=== PATIENT | male | born 1960 | race Caucasian/White ===

== ENCOUNTER → 2017-08-01 17:14 | Outpatient (CLI) | payer MEDICARE, SELFPAY ==
[2017-08-01 17:52] LABS: Amphetamine Urine VISTA NEGATIVE (<1000 ng/mL); Barbiturate Urine VISTA NEGATIVE (< 200 ng/mL); Benzodiazepine Urine VISTA NEGATIVE (< 200 ng/mL); Cocaine Urine VISTA NEGATIVE (< 300 ng/mL); Ecstacy Urine VISTA NEGATIVE (< 500 ng/mL); Methadone Urine VISTA NEGATIVE (< 300 ng/mL); PCP Urine VISTA NEGATIVE (< 25 ng/mL); THC Urine VISTA NEGATIVE (< 50 ng/mL); Vista UDS pH Range 5
== END ==
PROVIDERS: Family Provider Family Medicine; PCP Family Medicine; Visit Provider Anesthesiology Pain Medicine
DX: F11.20 Opioid dependence, uncomplicated (principal)
CPT/HCPCS: 80307

== ENCOUNTER → 2017-11-06 17:05 | Outpatient (CLI) | payer MEDICARE, MEDICAID, SELFPAY ==
--- NOTE | 2017-11-06 17:12 | RAD_ITS ---
STUDY: X-RAY - PELVIS AND BILATERAL HIPS REASON FOR EXAM: Male, 57 years old. Low back pain with bilateral hip pain TECHNIQUE: Radiological exam, hip, bilateral, with pelvis when performed; 3-4 views COMPARISON: None. FINDINGS: There is a non-specific bowel gas pattern. Normal visualized soft tissue structures. Postsurgical fusion of L4-5. There is narrowing with cortical sclerosis and osteophyte formation of the sacroiliac joint consistent with degenerative osteoarthritic changes. Normal bilateral superior and inferior pubic rami. Normal pubic symphysis. Normal bilateral ischial tuberosities. There are osteoarthritic changes of the right femoral head with marginal osteophyte formation. Normal right acetabulum. There is mild articular joint space narrowing of the right hip. There are osteoarthritic changes of the left femoral head with marginal osteophyte formation. Normal left acetabulum. There is mild articular joint space narrowing of the left hip. RAD/Hips B/L min 2 views w/ Pelvis IMPRESSION: Mild bilateral hip degenerative changes. Lower lumbar spine degenerative changes with postsurgical change Electronically Signed: Rolo Day DO at 13:32 EDT Tel , Service support ,
== END ==
PROVIDERS: Family Provider Family Medicine; PCP Family Medicine; Visit Provider Anesthesiology Pain Medicine
DX: M25.552 Pain in left hip (principal); M25.551 Pain in right hip; M54.9 Dorsalgia, unspecified
CPT/HCPCS: 73521

== ENCOUNTER → 2018-12-31 | Outpatient (CLI) | payer MEDICARE, SELFPAY ==
--- NOTE | 2018-12-31 13:50 | RAD_ITS ---
STUDY: X-RAY - UNILATERAL RIBS ( LEFT ) WITH CHEST REASON FOR EXAM: Male, 58 years old. Left-sided rib pain. TECHNIQUE - RIBS: 5 view(s) of the ribs. TECHNIQUE - CHEST: Single AP portable view of the chest. COMPARISON: None. FINDINGS - RIBS: Normal visualized ribs without a demonstrated fracture. FINDINGS - CHEST: The lungs are clear and slightly underexpanded. There is no demonstrated pleural abnormality. Normal size heart. Normal mediastinum and mercedes. Normal visualized pulmonary arteries. Normal visualized aortic arch and descending thoracic aorta. Postoperative changes through the lumbar spine noted with posterior fusion. There is degenerative osteoarthritis of the bilateral shoulders. There is no demonstrated abnormality of the visualized soft tissue structures of the upper abdomen. RAD/Ribs Uni Min 3V w/PA Chest IMPRESSION: RIBS: Unremarkable x-ray examination of the ribs with no distinct fracture seen. CHEST: Decreased inspiratory effort with vascular crowding, otherwise no acute process identified. Electronically Signed: Indu Delcid MD at 2:36 EST , Service support ,
== END | disposition home or self-care (01) ==
LOC: RAD 13:49
PROVIDERS: Family Provider Family Medicine; PCP Family Medicine; Referring Provider Anesthesiology Pain Medicine; Visit Provider Anesthesiology Pain Medicine
DX: R07.81 Pleurodynia (principal)
CPT/HCPCS: 71101

== ENCOUNTER → 2019-08-13 | Outpatient (CLI) | payer BC, MEDICARE, SELFPAY ==
[2016-11-03 22:13] VITALS: BMI 51.3
--- NOTE | 2019-08-13 17:00 | RAD_ITS ---
STUDY: X-RAY - PELVIS AND RIGHT HIP REASON FOR EXAM: Male, 58 years old. HIP PAIN. TECHNIQUE: 3 views of the pelvis and hip. COMPARISON: Prior study of 11/06/2017 FINDINGS: There is a non-specific bowel gas pattern. Normal visualized soft tissue structures. There are degenerative changes of the visualized lower lumbar spine. There are posterior spinal fusion changes with rods and interpeduncular screws at the L4-5 level. Normal bilateral iliac wings, sacroiliac joints and visualized sacrum. Normal bilateral superior and inferior pubic rami. Normal pubic symphysis. Normal bilateral ischial tuberosities. There are minimal degenerative changes of the left and right femoral heads. RAD/HIP, UNI W/ Pelvis 2-3 Views IMPRESSION: Minimal degenerative changes of the left and right femoral heads. Bilateral hip findings are similar to the previous study. The bony pelvis appears intact with no evidence of fracture or lytic or blastic osseous process. Degenerative changes of the visualized lower lumbar spine. Posterior fusion changes with rods and interpedicular screws at the L4-5 level. Electronically Signed: Shlomo Leblanc MD at 21:43 EDT , Service support ,
[2019-08-13 17:29] LABS: Amphetamine Urine VISTA NEGATIVE (<1000 ng/mL); Barbiturate Urine VISTA NEGATIVE (< 200 ng/mL); Benzodiazepine Urine VISTA NEGATIVE (< 200 ng/mL); Cocaine Urine VISTA NEGATIVE (< 300 ng/mL); Ecstacy Urine VISTA NEGATIVE (< 500 ng/mL); Methadone Urine VISTA NEGATIVE (< 300 ng/mL); PCP Urine VISTA NEGATIVE (< 25 ng/mL); THC Urine VISTA NEGATIVE (< 50 ng/mL); Vista UDS pH Range 6
== END | disposition home or self-care (01) ==
LOC: RAD 16:56
PROVIDERS: PCP Family Medicine; Referring Provider Anesthesiology Pain Medicine; Visit Provider Anesthesiology Pain Medicine
DX: M25.551 Pain in right hip (principal); F11.20 Opioid dependence, uncomplicated
CPT/HCPCS: 73502; 80307

== ENCOUNTER → 2020-04-28 16:28 | Outpatient (CLI) | payer MEDICARE, SELFPAY ==
[2016-11-03 22:13] VITALS: BMI 51.3
[2020-04-28 17:35] LABS: Amphetamine Urine VISTA NEGATIVE (<1000 ng/mL); Barbiturate Urine VISTA NEGATIVE (< 200 ng/mL); Benzodiazepine Urine VISTA NEGATIVE (< 200 ng/mL); Cocaine Urine VISTA NEGATIVE (< 300 ng/mL); Ecstacy Urine VISTA NEGATIVE (< 500 ng/mL); Methadone Urine VISTA NEGATIVE (< 300 ng/mL); PCP Urine VISTA NEGATIVE (< 25 ng/mL); THC Urine VISTA NEGATIVE (< 50 ng/mL); Vista UDS pH Range 5
== END ==
PROVIDERS: PCP Family Medicine; Referring Provider Anesthesiology Pain Medicine; Visit Provider Anesthesiology Pain Medicine
DX: F11.20 Opioid dependence, uncomplicated (principal)
CPT/HCPCS: 80307

== ENCOUNTER 2020-05-23 12:54 | Emergency (ER) | payer MEDICARE, SELFPAY ==
[2020-05-23 12:55] VITALS: BP 139/85; PULSE 97; RESP 16; TEMP 36.4; O2SAT 96; BMI 53.0
--- NOTE | 2020-05-23 13:12 | CT_ITS ---
STUDY: CT ABDOMEN AND PELVIS WITHOUT CONTRAST REASON FOR EXAM: Male, 59 years old. Right flank pain RADIATION DOSAGE (If Supplied By Facility): CTDIvol = ( 33.28 ) mGy, DLP = ( 1613.02 ) mGycm TECHNIQUE: Transaxial images were obtained from the dome of the diaphragm to the symphysis pubis without oral contrast, and without intravenous contrast. Sagittal and coronal images were reconstructed. Individualized dose optimization techniques were used for this CT. COMPARISON: None. FINDINGS: Evaluation of the abdominal viscera is limited in the absence of intravenous contrast. The visualized lung bases are clear. The visualized portions of the heart and pericardium are within normal limits. There are no calcified gallstones present. The liver is enlarged with diffuse fatty infiltration noted. The spleen is normal in size. The pancreas demonstrates an unremarkable unenhanced appearance. The adrenal glands are within normal limits. There are no renal or ureteral stones. There is no hydronephrosis. There is a simple cyst in the left kidney. Normal visualized stomach. There is no bowel obstruction or inflammation. The appendix is visualized and appears normal. The aorta is normal in caliber. There are atherosclerotic calcifications noted in the aorta. There is no abdominal or pelvic free air, free fluid, fluid collection or lymphadenopathy. There are no destructive osseous lesions. The patient is status post posterior fusion of L4/L5. CT/Abdomen/Pelvis without Cont IMPRESSION: No urinary calculi. No hydronephrosis. No bowel obstruction or inflammation. Normal appendix. Enlarged, fatty liver. Electronically Signed: Israel Burk MD at 14:08 EDT Tel , Service support ,
--- NOTE | 2020-05-23 13:12 | ED.VIS.GEN ---
History of Present Illness Chief Complaint: Back Detail of Chief Complaint: Right flank pain Onset: Days Context: Gradual Onset Timing: Waxes and wanes Current Severity: Mild Maximum Severity: Moderate Narrative: Patient presents with right flank pain for the past 2 days. He states he has a history of chronic back pain but was concerned this may represent a kidney stone or appendicitis as it was wrapping around his right side. He is unsure if he has had a fever. He states has had some cold symptoms for the past couple of weeks. - Past Medical History (1) Benign essential hypertension Status: Chronic (2) COPD (chronic obstructive pulmonary disease) Status: Chronic Comment: tobacco abuse 1 ppd (3) HLD (hyperlipidemia) Status: Chronic (4) Morbid obesity Status: Chronic Comment: bmi 51 (5) MANISH (obstructive sleep apnea) Status: Chronic (6) Type II diabetes mellitus Status: Chronic Past Medical History - Allergies and Home Meds Allergies/Adverse Reactions: Allergies Penicillins Allergy (Verified 11/03/16 22:15) Hives Primary Care Physician: Juan Miguel Russell MD [Primary Care Provider] - Surgical History: no surgical history Lives: With Family Smoking Status: Current every day smoker - Family History Maternal Family History: Reports: No pertinent history Review of Systems General: Denies: Chills, Sweats Eyes: Denies: Visual changes - bilaterally ENT: Denies: Bilateral ear pain Cardiovascular: Denies: Chest pain Respiratory: Denies: Dyspnea, Cough Gastrointestinal: Reports: Abdominal pain - Right flank pain. Denies: Nausea, Vomiting, Diarrhea Genitourinary: Denies: Dysuria Musculoskeletal: Denies: Swelling, Extremity Pain Skin: Denies: Rash Hematologic: Denies: Easy bruising, Easy bleeding Allergy: Denies: Uticaria Physical Exam Vital Signs/Narrative: Vital Signs Temp Pulse Resp BP Pulse Ox 05/23/20 12:55 97.6 F L 97 16 139/85 H 96 Inital Vital Signs reviewed: Yes General: Well nourished, Well developed Head: Normocephalic Neck: Supple Cardiovascular: Regular rate, Regular rhythm Respiratory: No distress, CTA bilaterally Abdomen: Soft, Tender. Negative for: Guarding, Rebound tenderness Back: CVA tenderness - Mild right CVA tenderness. Skin: Normal color Neurological: Alert, Oriented x3 Psychological: Normal affect Diagnostic/Tx/Re-eval Impressions Abdomen/Pelvis CT 05/23/20 13:12 IMPRESSION: No urinary calculi. No hydronephrosis. No bowel obstruction or inflammation. Normal appendix. Enlarged, fatty liver. Electronically Signed: Israel Burk MD at 14:08 EDT Tel , Service support , 05/23/20 13:12 Abdomen/Pelvis without Cont [CT] Stat - Medical Decision Making CT scan of the flank is obtained. Appendix is visualized and appears normal. No evidence of kidney stone. Patient is reassured with these findings and will continue his pain medication from his pain management physician at home. ED Disposition - Plan for ED Patient: Disposition: Home or Assisted Living Diagnosis: Right flank pain Instructions: ED Flank Pain, Uncertain Cause Referrals: Juan Miguel Russell MD [Primary Care Provider] - 1 Week if not improving
[2020-05-23 14:50] VITALS: BP 136/74; PULSE 62; RESP 15; O2SAT 98
== END 2020-05-23 14:51 | disposition home or self-care (01) ==
PROVIDERS: Emergency Provider Emergency Medicine; PCP Family Medicine
DX: R10.9 Unspecified abdominal pain (principal); I10 Essential (primary) hypertension; J44.9 Chronic obstructive pulmonary disease, unspecified; E78.5 Hyperlipidemia, unspecified; E66.01 Morbid (severe) obesity due to excess calories; E11.9 Type 2 diabetes mellitus without complications; F17.200 Nicotine dependence, unspecified, uncomplicated; Z79.84 Long term (current) use of oral hypoglycemic drugs; Z79.899 Other long term (current) drug therapy
CPT/HCPCS: 74176; 99282

== ENCOUNTER 2020-10-30 20:37 | Emergency (ER) | payer MEDICARE, SELFPAY ==
[2020-10-30 20:38] VITALS: BP 167/61; PULSE 87; RESP 18; TEMP 35.7; O2SAT 95; BMI 53.0
--- NOTE | 2020-10-30 21:05 | EDS_ITS ---
HPI History of Present Illness Chief Complaint: Lower Extremity Injury Informant: patient Narrative Narrative: 60-year-old male presents with bilateral lower extremity pain and swelling. He states that he is a diabetic with a history of hypertension hypercholesterolemia. His last hemoglobin A1c was 9. He is a smoker. He notes that he has developed pain with ambulation of the legs and the feet. He notes the feet are more swollen than normal. He notes some red-colored skin of the legs and the feet. He was worried about infection. [facility] Medical History (Updated 10/30/20 @ 21:[address] Sohail Yates DO) Benign essential hypertension COPD (chronic obstructive pulmonary disease) HLD (hyperlipidemia) Morbid obesity MANISH (obstructive sleep apnea) Type II diabetes mellitus Home Medications pregabalin [Lyrica] 100 mg PO TID 12/11/12 [History Last Taken Unknown] diltiazem HCl 180 mg PO DAILY 11/20/13 [History Last Taken Unknown] hydrochlorothiazide 25 mg PO DAILY 11/20/13 [History Last Taken Unknown] metformin 500 mg PO 4X/DAY 11/20/13 [History Last Taken Unknown] acetaminophen 1,000 mg PO TID 7 Days tablet 11/23/13 [Rx Last Taken Unknown] atorvastatin 10 mg PO QHS 11/03/16 [History Last Taken Unknown] dulaglutide [Trulicity] 1.5 mg SQ QWEEK 11/03/16 [History Last Taken Unknown] glimepiride 4 mg PO DAILY 11/03/16 [History Last Taken Unknown] budesonide-formoterol 2 puff INHALATION BID 10/30/20 [History Last Taken Unknown] celecoxib [Celebrex] 200 mg PO BID 10/30/20 [History Last Taken Unknown] insulin aspart U-100 [Novolog Flexpen U-100 Insulin] 2 unit SUBCUT TID 10/30/20 [History Last Taken Unknown] oxycodone myristate [Xtampza ER] 18 mg PO BID 10/30/20 [History Last Taken Unknown] pantoprazole 40 mg PO DAILY 10/30/20 [History Last Taken Unknown] Allergy/AdvReac Type Severity Reaction Status Date / Time Penicillins Allergy Hives Verified 11/03/16 22:15 Social History (Updated 10/30/20 @ 21:[address] Sohail Yates DO) Smoking Status: Current every day smoker substance use type: does not use ROS ROS ED Constitutional Constitutional ED: Denies chills or weight loss Eyes Eyes: Denies change in vision or diplopia ENT ENT ED: Denies ear pain, rhinorrhea or sore throat Cardiovascular Cardiovascular: Denies chest pain, orthopnea, palpitations or racing heartbeat Respiratory/Chest Respiratory/Chest: Denies cough, dyspnea or orthopnea Gastrointestinal Gastrointestinal: Denies abdominal pain, diarrhea, nausea or vomiting Genitourinary Genitourinary ED: Denies dysuria, hematuria or urinary frequency Musculoskeletal Musculoskeletal: Reports other Details: Bilateral lower extremity pain and swelling ; Denies arthralgias or myalgias Integumentary Denies abscess or rash Neurologic Neurologic: Denies headache(s) or weakness Psychiatric Psychiatric: Denies anxiety, depression, suicidal ideation or suicidal thoughts Endocrine Endocrinology: Denies polydipsia, polyphagia or polyuria Allergic/Immunologic Allergic/Immunologic ED: Denies mouth swelling, tongue swelling or urticaria EXAM Physical Exam Const Vital Signs: 10/30/20 20:38 Temperature 96.3 F L Temperature Source Temporal Pulse Rate 87 Respiratory Rate 18 Blood Pressure 167/61 H Blood Pressure Mean 96 Pulse Ox 95 Oxygen Delivery Method Room Air Positive well nourished and well developed General Appearance ED: well developed HEENT Reports normocephalic, head/scalp atraumatic and moist mucous membranes Eyes PERRL and EOMs intact bilaterally Neck no lymphadenopathy, supple and no JVD Resp normal respiratory effort and clear to auscultation bilaterally Cardio regular rate, regular rhythm and no murmurs GI normal to inspection, nondistended, normoactive bowel sounds and non-tender Palpation: soft Back/Spine no CVA tenderness and normal ROM Extremity Extremity Narrative: Bilateral feet swelling and lower leg swelling. There are extensive varicose veins. He has some evidence of venous stasis but also some rubor that resolves with elevation General Extremety ED: Yes edema General Extremity: edema Neuro oriented x3 and CN's II-XII intact bilaterally Sensorium / Orientation: alert Motor Exam: strength 5/5 throughout Psych mental status grossly normal Mood & Affect: Negative for depressed or tearful Skin no rashes or lesions noted and no wounds MDM MDM MDM Narrative Medical decision making narrative: Patient states he is currently on Lyrica for diabetic neuropathy. I am concerned that he has peripheral vascular disease and is experiencing some claudication. I think it is reasonable to refer him to vascular surgery for their evaluation. Discharge Plan Triage Chief Complaint: Lower Extremity Injury ED Provider: Sohail Yates Dx/Rx/DC Orders Clinical Impression: Peripheral vascular disease Instructions: Diabetes PAD Prescriptions: No Action pregabalin [Lyrica] 100 MG capsule 100 mg PO TID RF: 0 metformin 500 MG tablet 500 mg PO 4X/DAY RF: 0 diltiazem HCl 180 MG capsule,extended release 24 hr 180 mg PO DAILY RF: 0 hydrochlorothiazide 25 MG tablet 25 mg PO DAILY RF: 0 acetaminophen 500 MG tablet 1,000 mg PO TID 7 Days RF: 0 atorvastatin 10 MG tablet 10 mg PO QHS RF: 0 glimepiride 2 MG tablet 4 mg PO DAILY RF: 0 Trulicity 0.75 MG/0.5 ML pen injector 1.5 mg SQ QWEEK RF: 0 celecoxib [Celebrex] 200 mg Capsule 200 mg PO BID RF: 0 insulin aspart U-100 [Novolog Flexpen U-100 Insulin] 100 unit/mL (3 mL) Insulin Pen 2 unit SUBCUT TID RF: 0 budesonide-formoterol 80-4.5 mcg/actuation Hfa Aerosol Inhaler 2 puff INHALATION BID RF: 0 Xtampza ER 18 mg Cap,Sprinkl,Er12hr(Dont Crush) 18 mg PO BID RF: 0 pantoprazole 40 mg Tablet,Delayed Release (Dr/Ec) 40 mg PO DAILY RF: 0 Primary Care Provider: Juan Miguel Russell Referrals: Mg Singh MD [STAFF PHYSICIAN] - As soon as possible Juan Miguel Russell MD [Primary Care Provider] - Disposition Disposition: Home, Self Care
== END 2020-10-30 21:18 | disposition home or self-care (01) ==
LOC: ED 21:18
PROVIDERS: Emergency Provider Emergency Medicine; PCP Family Medicine
DX: E11.51 Type 2 diabetes mellitus with diabetic peripheral angiopathy without gangrene (principal); I10 Essential (primary) hypertension; J44.9 Chronic obstructive pulmonary disease, unspecified; E78.5 Hyperlipidemia, unspecified; E66.01 Morbid (severe) obesity due to excess calories; E11.40 Type 2 diabetes mellitus with diabetic neuropathy, unspecified; F17.200 Nicotine dependence, unspecified, uncomplicated; Z79.4 Long term (current) use of insulin; Z79.899 Other long term (current) drug therapy
CPT/HCPCS: 99283

== ENCOUNTER → 2021-06-23 | Outpatient (CLI) | payer MEDICARE, SELFPAY ==
[2021-06-23 18:26] LABS: Amphetamine Urine VISTA NEGATIVE (<1000 ng/mL); Barbiturate Urine VISTA NEGATIVE (< 200 ng/mL); Benzodiazepine Urine VISTA NEGATIVE (< 200 ng/mL); Cocaine Urine VISTA NEGATIVE (< 300 ng/mL); Ecstacy Urine VISTA NEGATIVE (< 500 ng/mL); Methadone Urine VISTA NEGATIVE (< 300 ng/mL); PCP Urine VISTA NEGATIVE (< 25 ng/mL); THC Urine VISTA NEGATIVE (< 50 ng/mL); Vista UDS pH Range 4
== END | disposition home or self-care (01) ==
LOC: LAB 17:11
PROVIDERS: PCP Family Medicine; Referring Provider Anesthesiology Pain Medicine; Visit Provider Anesthesiology Pain Medicine
DX: F11.20 Opioid dependence, uncomplicated (principal)
CPT/HCPCS: 80307

== ENCOUNTER 2021-10-18 12:53 | Emergency (ER) | payer MEDICARE, SELFPAY ==
[2021-10-18 12:54] VITALS: BP 161/88; PULSE 107; RESP 26; TEMP 36.6; O2SAT 94; BMI 52.4
[2021-10-18 13:18] VITALS: BP 164/66; PULSE 108; RESP 18; O2SAT 94
--- NOTE | 2021-10-18 13:41 | RAD_ITS ---
STUDY: X-RAY CHEST REASON FOR EXAM: Male, 61 years old. cough TECHNIQUE: Single AP portable view of the chest. The images are under penetrated. COMPARISON: 12/31/2018 FINDINGS: The lungs are clear and expanded. There is no demonstrated pleural abnormality. Normal size heart. Normal mediastinum and mercedes. Normal visualized pulmonary arteries. Normal visualized aortic arch and descending thoracic aorta. Normal visualized thoracic spine. Normal visualized ribs, clavicles, and shoulders. There is no demonstrated abnormality of the visualized soft tissue structures of the upper abdomen. RAD/Chest 1 View (Portable) IMPRESSION: Limited by technique with no evidence of distinct focal airspace disease. Electronically Signed: Maximilian Davenport DO at 14:11 EDT ,
--- NOTE | 2021-10-18 13:42 | EX.ED.VIS.UR ---
HPI HPI - URI History of Present Illness Chief Complaint: Shortness of Breath Narrative Narrative: 61-year-old male presenting for evaluation of a cough that has had for about a month. He states this started with a head cold and then slowly progressed into his chest. He states he has a history of bronchitis in the past and he states that his asthmatic bronchitis. He has not seen anybody for this since his symptoms started. He went to urgent care today and was referred to the ER. Patient denies chest pain, fever, chills, body aches, nausea, vomiting, diarrhea. He states he feels okay. He thinks he has a basic cold. He does not believe he has COVID. He has test at home and is tested negative. ROS ROS ED Constitutional Constitutional ED: Denies chills or fever(s) Eyes Eyes: Denies change in vision ENT ENT ED: Denies rhinorrhea or sore throat Cardiovascular Cardiovascular: Denies chest pain, orthopnea or palpitations Respiratory/Chest Respiratory/Chest: Reports cough; Denies orthopnea Gastrointestinal Gastrointestinal: Denies abdominal pain, nausea or vomiting Genitourinary Genitourinary ED: Denies dysuria or hematuria Musculoskeletal Musculoskeletal: Denies arthralgias, myalgias or neck pain Integumentary Denies abscess Neurologic Neurologic: Denies headache(s) Psychiatric Psychiatric: Denies anxiety or depression [facility] Medical History Benign essential hypertension COPD (chronic obstructive pulmonary disease) HLD (hyperlipidemia) Leaky heart valve Morbid obesity MANISH (obstructive sleep apnea) Type II diabetes mellitus Home Medications pregabalin 100 mg capsule (Lyrica) 100 mg PO TID 12/11/12 [History Last Taken Unknown] diltiazem HCl 180 mg capsule,24 hr,extended release 180 mg PO DAILY 11/20/13 [History Last Taken Unknown] hydrochlorothiazide 25 mg tablet 25 mg PO DAILY 11/20/13 [History Last Taken Unknown] metformin 500 mg tablet 500 mg PO 4X/DAY 11/20/13 [History Last Taken Unknown] atorvastatin 10 mg tablet 10 mg PO QHS 11/03/16 [History Last Taken Unknown] dulaglutide 0.75 mg/0.5 mL subcutaneous pen injector (Trulicity) 1.5 mg SQ QWEEK 11/03/16 [History Last Taken Unknown] glimepiride 2 mg tablet 4 mg PO DAILY 11/03/16 [History Last Taken Unknown] budesonide-formoterol HFA 80 mcg-4.5 mcg/actuation aerosol inhaler 2 puff inhalation BID 10/30/20 [History Last Taken Unknown] celecoxib 200 mg capsule (Celebrex) 200 mg PO BID 10/30/20 [History Last Taken Unknown] insulin aspart U-100 100 unit/mL (3 mL) subcutaneous pen (Novolog Flexpen U-100 Insulin aspart) 2 unit subcut TID 10/30/20 [History Last Taken Unknown] oxycodone myristate 18 mg capsule sprinkle extended release 12hr(DON'T CRUSH) (Xtampza ER) 18 mg PO BID 10/30/20 [History Last Taken Unknown] pantoprazole 40 mg tablet,delayed release 40 mg PO DAILY 10/30/20 [History Last Taken Unknown] acetaminophen 500 mg tablet 1,000 mg PO TID PRN Pain 10/18/21 [History Last Taken Unknown] albuterol sulfate 90 mcg/actuation aerosol inhaler (Ventolin HFA) 1 - 2 puff inhalation Q4H PRN PRN Wheezing #8.5 grams 10/18/21 [Rx Last Taken Unknown] prednisone 50 mg tablet 50 mg PO DAILY #5 tabs 10/18/21 [Rx Last Taken Unknown] Allergy/AdvReac Type Severity Reaction Status Date / Time Penicillins Allergy Hives Verified 10/18/21 12:54 Surgical History History of back surgery Social History Smoking Status: Current every day smoker tobacco type: cigarettes substance use type: does not use EXAM Physical Exam Const Vital Signs: 10/18/21 12:54 10/18/21 13:18 10/18/21 13:18 Temperature 97.8 F Temperature Source Temporal Pulse Rate 107 H 108 H Respiratory Rate 26 H 18 Respiratory Effort Short of Breath Labored Respiratory Depth Normal Respiratory Pattern Normal Blood Pressure 161/88 H 164/66 H Blood Pressure Mean 112 98 Pulse Ox 94 94 Oxygen Delivery Method Room Air Room Air Room Air 10/18/21 13:55 10/18/21 14:20 Temperature Temperature Source Pulse Rate 103 H 106 H Respiratory Rate 18 24 H Respiratory Effort Respiratory Depth Respiratory Pattern Blood Pressure 204/92 H Blood Pressure Mean 129 Pulse Ox 95 Oxygen Delivery Method Room Air Positive well nourished General Appearance ED: NAD; Negative for pallor HEENT Reports moist mucous membranes normocephalic Throat: posterior oropharynx normal Eyes PERRL and EOMs intact bilaterally Resp normal respiratory effort Auscultation: wheezes scattered wheezes Cardio Rate: tachycardic Rhythm: regular rhythm GI non-tender Neuro oriented x3 and CN's II-XII intact bilaterally Sensorium / Orientation: alert Motor Exam: strength 5/5 throughout Psych mental status grossly normal Skin General Skin Exam: Negative for jaundice or pallor MDM MDM MDM Narrative Medical decision making narrative: Patient presenting with a cough these had for about a month. He has some very mild wheezes on exam. He was given a dose of prednisone 60 mg and breathing treatments. I will obtain a chest x-ray as well. He does not want to be tested for COVID. Patient chest x-ray on my interpretation shows no acute cardiopulmonary process. Radiologist agree. Patient feels improved after breathing treatments and prednisone. He states he wants to go home. I think is reasonable since he is not wearing the oxygen. He is given a prednisone burst and albuterol inhaler for home. Return precautions discussed. Impression: 1. Asthma flare 2. Cough Lab Data Attestation: I reviewed the patient's lab results. Radiography Diagnostic Testing: Clinical Impression(s) from Imaging Studies Chest X-Ray 10/18/21 13:41 IMPRESSION: Limited by technique with no evidence of distinct focal airspace disease. Electronically Signed: Maximilian Davenport DO at 14:11 EDT , Discharge Plan Triage Chief Complaint: Shortness of Breath ED Provider: Jack Moran Dx/Rx/DC Orders Instructions: ED Bronchitis with Wheezing (Adult) Prescriptions: New prednisone 50 mg tablet 50 mg PO DAILY Qty: 5 0RF albuterol sulfate [Ventolin HFA] 90 mcg/actuation HFA aerosol inhaler 1 - 2 puff inhalation Q4H PRN PRN (Reason: Wheezing) Qty: 8.5 0RF No Action pregabalin [Lyrica] 100 MG capsule 100 mg PO TID metformin 500 MG tablet 500 mg PO 4X/DAY Label Comments: DIABETES diltiazem HCl 180 MG capsule,extended release 24 hr 180 mg PO DAILY Label Comments: HEART hydrochlorothiazide 25 MG tablet 25 mg PO DAILY Label Comments: WATER PILL atorvastatin 10 MG tablet 10 mg PO QHS glimepiride 2 MG tablet 4 mg PO DAILY Trulicity 0.75 MG/0.5 ML pen injector 1.5 mg SQ QWEEK celecoxib [Celebrex] 200 mg Capsule 200 mg PO BID insulin aspart U-100 [Novolog Flexpen U-100 Insulin] 100 unit/mL (3 mL) Insulin Pen 2 unit SUBCUT TID Rx Instructions: 2 units per every 50 after 200 BG budesonide-formoterol 80-4.5 mcg/actuation Hfa Aerosol Inhaler 2 puff INHALATION BID Xtampza ER 18 mg Cap,Sprinkl,Er12hr(Dont Crush) 18 mg PO BID pantoprazole 40 mg Tablet,Delayed Release (Dr/Ec) 40 mg PO DAILY acetaminophen 500 MG tablet 1,000 mg PO TID PRN (Reason: Pain) Primary Care Provider: Juan Miguel Russell Referrals: Juan Miguel Russell MD [Primary Care Provider] - Disposition Disposition: Home, Self Care
[2021-10-18] MEDS: predniSONE 20 MG Tablet 60 MG PO (13:49)
[2021-10-18] MEDS: Ipratropium/Albuterol Sulfate 3 ML AMPUL.NEB INHALATION (13:54)
[2021-10-18] MEDS: Albuterol 2.5 MG/3 ML VIAL.NEB. INHALATION (13:54)
[2021-10-18 13:55] VITALS: PULSE 103; RESP 18
[2021-10-18 14:20] VITALS: BP 204/92; PULSE 106; RESP 24; O2SAT 95
[2021-10-18 15:47] VITALS: RESP 16; O2SAT 95
== END 2021-10-18 15:40 | disposition home or self-care (01) ==
PROVIDERS: Emergency Provider Student in an Organized Health Care Education/Training Program; PCP Family Medicine; Visit Provider Student in an Organized Health Care Education/Training Program
DX: J45.901 Unspecified asthma with (acute) exacerbation (principal); J44.9 Chronic obstructive pulmonary disease, unspecified; E11.9 Type 2 diabetes mellitus without complications; Z79.4 Long term (current) use of insulin; E78.5 Hyperlipidemia, unspecified; I10 Essential (primary) hypertension; F17.210 Nicotine dependence, cigarettes, uncomplicated; Z79.52 Long term (current) use of systemic steroids; Z79.84 Long term (current) use of oral hypoglycemic drugs; Z79.899 Other long term (current) drug therapy
CPT/HCPCS: 71045; 94640; 99284; A4216

== ENCOUNTER → 2022-03-09 | Outpatient (CLI) | payer MEDICARE, SELFPAY ==
[2022-03-09 17:13] LABS: Amphetamine Urine VISTA NEGATIVE (<1000 ng/mL); Barbiturate Urine VISTA NEGATIVE (< 200 ng/mL); Benzodiazepine Urine VISTA NEGATIVE (< 200 ng/mL); Cocaine Urine VISTA NEGATIVE (< 300 ng/mL); Ecstacy Urine VISTA NEGATIVE (< 500 ng/mL); Methadone Urine VISTA NEGATIVE (< 300 ng/mL); PCP Urine VISTA NEGATIVE (< 25 ng/mL); THC Urine VISTA NEGATIVE (< 50 ng/mL); Vista UDS pH Range 4
== END | disposition home or self-care (01) ==
LOC: LAB 15:22
PROVIDERS: Visit Provider Anesthesiology Pain Medicine
DX: F11.20 Opioid dependence, uncomplicated (principal)
CPT/HCPCS: 80307

== ENCOUNTER → 2022-06-24 | Outpatient (CLI) | payer MEDICARE, SELFPAY ==
--- NOTE | 2022-06-24 14:45 | RAD_ITS ---
EXAM: XR CERVICAL SPINE, 2 OR 3 VIEWS CLINICAL INDICATION: M0.30 -- M54.812 TECHNIQUE: Frontal and lateral views of the cervical spine. COMPARISON: No relevant prior studies available. FINDINGS: VERTEBRAE: Straightening of the usual lordotic curvature. Moderate disc space narrowing at C5-6. Minimal disc space narrowing at C4-5. Mild anterior spondylosis at C4-C6 on the lateral view, minimal posterior spondylosis at C5-6. DISC SPACES: The cervicothoracic junction is not well seen but on the swimmer''s view there is mild disc space narrowing and anterior spondylosis at C6-7. SOFT TISSUES: Unremarkable. No prevertebral soft tissue widening. LUNG APICES: Clear. RAD/Cerv Spine 2 or 3 Views IMPRESSION: Mild straightening of the usual lordotic curvature. Multilevel disc space narrowing and spondylosis. No fracture or subluxation. Mild-moderate cervical carotid calcifications, greater on the right. Electronically Signed: Gloria Sellers MD at 8:38 EDT ,
== END | disposition home or self-care (01) ==
LOC: RAD 14:33
PROVIDERS: Referring Provider Anesthesiology Pain Medicine; Visit Provider Anesthesiology Pain Medicine
DX: M50.30 Other cervical disc degeneration, unspecified cervical region (principal)
CPT/HCPCS: 72040

== ENCOUNTER 2022-09-23 02:00 | Emergency (ER) | payer MEDICARE, SELFPAY ==
[2022-09-23 02:01] VITALS: BP 168/79; PULSE 88; RESP 15; TEMP 36.9; O2SAT 94
--- NOTE | 2022-09-23 02:21 | EDS_ITS ---
HPI History of Present Illness Chief Complaint: Back Narrative Narrative: 62-year-old male past medical history of diabetes, chronic low back pain, on extended release oxycodone and diclofenac from pain management, Dr. Pires. He states that he recently had injections for his chronic back pain, and had an MRI done of his back. He has been having exacerbation of his chronic pain for the last 2 months. Pain radiates into his right hip. He denies any fevers or chills, no loss of bowel or bladder. This is the same pain that he has had previously and is being treated for by pain management. He states that whenever he tries to get in and out of bed he has low back spasming which causes him to cry out in pain. He used to be on muscle relaxers but has not taken them for quite some time. Additionally, he states that he supposed to follow-up with his primary care physician for referral to orthopedic spine surgery. He presents mainly for a muscle relaxer because of spasming in his low back. He denies any red flag signs for cauda equina. [facility] Medical History Benign essential hypertension COPD (chronic obstructive pulmonary disease) HLD (hyperlipidemia) Leaky heart valve Morbid obesity MANISH (obstructive sleep apnea) Type II diabetes mellitus Home Medications pregabalin 100 mg capsule (Lyrica) 100 mg PO TID 12/11/12 [History Last Taken Unknown] diltiazem HCl 180 mg capsule,24 hr,extended release 180 mg PO DAILY 11/20/13 [History Last Taken Unknown] hydrochlorothiazide 25 mg tablet 25 mg PO DAILY 11/20/13 [History Last Taken Unknown] metformin 500 mg tablet 500 mg PO 4X/DAY 11/20/13 [History Last Taken Unknown] atorvastatin 10 mg tablet 10 mg PO QHS 11/03/16 [History Last Taken Unknown] dulaglutide 0.75 mg/0.5 mL subcutaneous pen injector (Trulicity) 1.5 mg SQ QWEEK 11/03/16 [History Last Taken Unknown] glimepiride 2 mg tablet 4 mg PO DAILY 11/03/16 [History Last Taken Unknown] budesonide-formoterol HFA 80 mcg-4.5 mcg/actuation aerosol inhaler 2 puff inhalation BID 10/30/20 [History Last Taken Unknown] celecoxib 200 mg capsule (Celebrex) 200 mg PO BID 10/30/20 [History Last Taken Unknown] insulin aspart U-100 100 unit/mL (3 mL) subcutaneous pen (Novolog FlexPen U-100 Insulin aspart) 2 unit subcut TID 10/30/20 [History Last Taken Unknown] oxycodone myristate 18 mg capsule sprinkle extended release 12hr(DON'T CRUSH) (Xtampza ER) 18 mg PO BID 10/30/20 [History Last Taken Unknown] pantoprazole 40 mg tablet,delayed release 40 mg PO DAILY 10/30/20 [History Last Taken Unknown] acetaminophen 500 mg tablet 1,000 mg PO TID PRN Pain 10/18/21 [History Last Taken Unknown] albuterol sulfate 90 mcg/actuation aerosol inhaler (Ventolin HFA) 1 - 2 puff inhalation Q4H PRN PRN Wheezing #8.5 grams 10/18/21 [Rx Last Taken Unknown] prednisone 50 mg tablet 50 mg PO DAILY #5 tabs 10/18/21 [Rx Last Taken Unknown] cyclobenzaprine 10 mg tablet 10 mg PO TID PRN Muscle Spasm #20 TABLETS 09/23/22 [Rx Last Taken Unknown] Allergy/AdvReac Type Severity Reaction Status Date / Time Penicillins Allergy Hives Verified 09/23/22 02:08 Surgical History History of back surgery Social History Smoking Status: Current every day smoker tobacco type: cigarettes substance use type: does not use ROS ROS ED ROS Narrative Constitutional: No fever, no chills. HEENT: No sore throat. No neck pain. No loss of vision. No rhinorrhea. Cardiovascular: No chest pain. No palpitations. No pedal edema. Respiratory: No cough, no shortness of breath. Abdominal: No abdominal pain. No nausea. No vomiting. Genitourinary: No dysuria. No hematuria. Musculoskeletal: No myalgias. No arthralgias. Low back pain and spasming. Right hip pain. Neurologic: No headaches. No dizziness. No lightheadedness. Skin: No rash. No change in color. Psychiatric: No depression. No anxiety. EXAM Physical Exam Narrative Exam Narrative: Afebrile. Vital signs noted. HEENT: Normocephalic. Atraumatic. PERRL, EOMI. Neck soft and supple. No point tenderness or step off. Cardiovascular: Regular rate and rhythm. No murmurs, rubs, or gallops appreciated. Respiratory: No tachypnea. Lungs clear to auscultation bilaterally. Gastrointestinal: Abdomen soft, nontender, with normoactive bowel sounds. No rebound or guarding. Neurological: Awake. Alert. Nonfocal, nonlateralizing. Skin: No rash. Normal color. No pallor. Musculoskeletal: No pedal edema. Full range of motion extremities. Sitting comfortably in wheelchair. Able to flex and extend right knee. Mild spasming of right paraspinal back musculature. No vertebral point tenderness or bony step-off. Const Vital Signs: 09/23/22 02:01 09/23/22 02:40 Temperature 98.4 F Temperature Source Temporal Pulse Rate 88 74 Respiratory Rate 15 15 Blood Pressure 168/79 H 168/79 H Blood Pressure Mean 108 Pulse Ox 94 97 Oxygen Delivery Method Room Air MDM MDM MDM Narrative Medical decision making narrative: I reviewed the patient's prior records. He is enrolled in pain management. I do not feel that any imaging is indicated as this is more exacerbation of his chronic pain, and he has been having radicular symptoms for the last 2 months. There are no acute signs of cauda equina, no red flag signs. He states that he needs a muscle relaxer to help with his pain. He was given an intramuscular injection of Norflex 60 mg. I wrote him a prescription for Flexeril No. 20 to take up to 3 times a day. I suggested that he follow-up with his pain management doctor tomorrow in the event that they want to change him to a different muscle relaxer. He was told that he could not receive narcotic pain medications as he is already enrolled in pain management and is taking his dose that he receives from them. He acknowledges an understanding. I do not feel that he requires observation or admission at this time. He does not want to be admitted and does not feel like he needs placement in a nursing home facility for rehab. Hence, I do feel that he can be discharged to follow-up with pain management tomorrow. Return instructions to the emergency department were reviewed. Disposition is discharged home in stable condition. History & Record Review Additional record(s) reviewed:: Prior outpatient record and Prior ED visit Discharge Plan Triage Chief Complaint: Back ED Provider: Jabier Blancas Dx/Rx/DC Orders Clinical Impression: Chronic back pain, Lumbar radiculopathy, right, Lumbar paraspinal muscle spasm Instructions: ED Muscle Spasm, ED Pain Management: Chronic, ED Sciatica Prescriptions: New cyclobenzaprine 10 mg tablet 10 mg PO TID PRN (Reason: Muscle Spasm) Qty: 20 0RF No Action pregabalin [Lyrica] 100 MG capsule 100 mg PO TID metformin 500 MG tablet 500 mg PO 4X/DAY Patient Comments: DIABETES diltiazem HCl 180 MG capsule,extended release 24 hr 180 mg PO DAILY Patient Comments: HEART hydrochlorothiazide 25 MG tablet 25 mg PO DAILY Patient Comments: WATER PILL atorvastatin 10 MG tablet 10 mg PO QHS glimepiride 2 MG tablet 4 mg PO DAILY Trulicity 0.75 MG/0.5 ML pen injector 1.5 mg SQ QWEEK celecoxib [Celebrex] 200 mg Capsule 200 mg PO BID insulin aspart U-100 [Novolog FlexPen U-100 Insulin] 100 unit/mL (3 mL) Insulin Pen 2 unit SUBCUT TID Rx Instructions: 2 units per every 50 after 200 BG budesonide-formoterol 80-4.5 mcg/actuation Hfa Aerosol Inhaler 2 puff INHALATION BID Xtampza ER 18 mg Cap,Sprinkl,Er12hr(Dont Crush) 18 mg PO BID pantoprazole 40 mg Tablet,Delayed Release (Dr/Ec) 40 mg PO DAILY acetaminophen 500 MG tablet 1,000 mg PO TID PRN (Reason: Pain) prednisone 50 mg tablet 50 mg PO DAILY Qty: 5 0RF albuterol sulfate [Ventolin HFA] 90 mcg/actuation HFA aerosol inhaler 1 - 2 puff inhalation Q4H PRN PRN (Reason: Wheezing) Qty: 8.5 0RF Primary Care Provider: Juan Miguel Russell Referrals: Walter Sellers MD [Med Staff - Active Staff] - 1 Day Juan Miguel Russell [[facility]] - [facility] appointment Disposition Disposition: Home, Self Care Discharge Date/Time: 09/23/22 02:43
[2022-09-23] MEDS: Orphenadrine 60 MG/2 ML Ampul IM (02:27)
[2022-09-23 02:40] VITALS: BP 168/79; PULSE 74; RESP 15; O2SAT 97
== END 2022-09-23 02:43 | disposition home or self-care (01) ==
LOC: ED 02:24
PROVIDERS: Emergency Provider Emergency Medicine; PCP Family Medicine; Visit Provider Emergency Medicine
DX: M62.830 Muscle spasm of back (principal); J44.9 Chronic obstructive pulmonary disease, unspecified; E11.9 Type 2 diabetes mellitus without complications; E78.5 Hyperlipidemia, unspecified; I10 Essential (primary) hypertension; M54.16 Radiculopathy, lumbar region; F17.210 Nicotine dependence, cigarettes, uncomplicated; G89.29 Other chronic pain
CPT/HCPCS: 96372; 99282

== ENCOUNTER 2022-10-09 14:18 | Inpatient (IN) | payer MEDICARE, MEDICAID, SELFPAY ==
[2022-10-09] VITALS (8 sets, daily range): BP systolic 137–151; BP diastolic 52–82; PULSE 89–110; RESP 12–25; TEMP 35.8–36.8; O2SAT 90–94; BMI 54.1; BMI 53.4
--- NOTE | 2022-10-09 14:58 | EKG12_ITS ---
Test Reason : sob Blood Pressure : / mmHG Vent. Rate : 102 BPM Atrial Rate : 102 BPM P-R Int : 186 ms QRS Dur : 082 ms QT Int : 336 ms P-R-T Axes : 047 -32 034 degrees QTc Int : 437 ms Sinus tachycardia Left axis deviation Low voltage QRS Cannot rule out Anterior infarct , age undetermined Abnormal ECG Confirmed by ANDIE WEIR, AUDI ([id number]), city editor JESUSITA ROQUE ([id number]) on 11/18/2022 12:41:57 PM Referred By: Confirmed By:GAIL CHAVES MD
[2022-10-09] MEDS: Ipratropium/Albuterol Sulfate 3 ML AMPUL.NEB INHALATION (15:16)
[2022-10-09] MEDS: Albuterol 2.5 MG/3 ML VIAL.NEB. INHALATION (15:17)
--- NOTE | 2022-10-09 15:23 | EX.ED.DYSGE1 ---
HPI <SHELL Knox - Last Filed: 10/09/22 15:28> History of Present Illness Chief Complaint: Shortness of Breath Narrative Narrative: Patient is a 62-year-old male with history of COPD, obesity, diabetes, hypertension, hyperlipidemia. Patient is currently getting worked up to have a valve replacement. He states that over the last week, he has had worsening cough, increased shortness of breath, he does sleep in a chair. Patient noticed that his lower extremities are becoming more edematous, he does have a large blister to his right parker. He states that he also has a cough and feels weak. He is concerned that he has pneumonia or he has congestive heart failure. [facility] <SHELL Knox - Last Filed: 10/09/22 15:28> [facility] Medical History (Updated 10/09/22 @ 22:27 by Ramandeep Mirza) Asthma Benign essential hypertension Bipolar disorder Chronic pain COPD (chronic obstructive pulmonary disease) CPAP (continuous positive airway pressure) dependence Diabetes GERD (gastroesophageal reflux disease) Hearing loss, left HLD (hyperlipidemia) Hypertension Leaky heart valve Morbid obesity MANISH (obstructive sleep apnea) Pancreatitis Smoker Type II diabetes mellitus Home Medications pregabalin 100 mg capsule (Lyrica) 200 mg PO BID NEUROPATHY 12/11/12 [History Last Taken Unknown] diltiazem HCl 180 mg capsule,24 hr,extended release 180 mg PO DAILY 11/20/13 [History Last Taken Unknown] hydrochlorothiazide 25 mg tablet 25 mg PO DAILY BP 11/20/13 [History Last Taken Unknown] metformin 500 mg tablet 500 mg PO 4X/DAY 11/20/13 [History Last Taken Unknown] atorvastatin 10 mg tablet 10 mg PO QHS 11/03/16 [History Last Taken Unknown] dulaglutide 0.75 mg/0.5 mL subcutaneous pen injector (Trulicity) 3 mg SQ QWEEK DIABETES 11/03/16 [History Last Taken 10/07/22] glimepiride 2 mg tablet 4 mg PO DAILY 11/03/16 [History Last Taken Unknown] budesonide-formoterol HFA 80 mcg-4.5 mcg/actuation aerosol inhaler 2 puff inhalation BID 10/30/20 [History Last Taken Unknown] insulin aspart U-100 100 unit/mL (3 mL) subcutaneous pen (Novolog FlexPen U-100 Insulin aspart) 2 unit subcut TID 10/30/20 [History Last Taken Unknown] oxycodone myristate 18 mg capsule sprinkle extended release 12hr(DON'T CRUSH) (Xtampza ER) 18 mg PO BID 10/30/20 [History Last Taken Unknown] pantoprazole 40 mg tablet,delayed release 40 mg PO DAILY 10/30/20 [History Last Taken Unknown] acetaminophen 500 mg tablet 1,000 mg PO TID PRN Pain 10/18/21 [History Last Taken Unknown] albuterol sulfate 90 mcg/actuation aerosol inhaler (Ventolin HFA) 1 - 2 puff inhalation Q4H PRN PRN Wheezing #8.5 grams 10/18/21 [Rx Last Taken Unknown] carvedilol 3.125 mg tablet 3.125 mg PO BID BP 10/09/22 [History Last Taken Unknown] diclofenac potassium 25 mg capsule 25 mg PO BID PAIN 10/09/22 [History Last Taken Unknown] ergocalciferol (vitamin D2) 1,250 mcg (50,000 unit) capsule (Vitamin D2) 50,000 unit PO .MONDAY REPLACEMET 10/09/22 [History Last Taken Unknown] losartan 50 mg-hydrochlorothiazide 12.5 mg tablet 1 tab PO DAILY BP/ WATER PILL 10/09/22 [History Last Taken Unknown] Allergy/AdvReac Type Severity Reaction Status Date / Time Penicillins Allergy Hives Verified 10/09/22 14:22 lisinopril AdvReac Intermediate Upset Verified 10/09/22 18:38 Stomach NASAL SPRAY AdvReac Intermediate Chest Uncoded 10/09/22 14:22 tightness Surgical History History of back surgery Social History (Updated 10/09/22 @ 14:46 by Carolina Alba) household members: spouse housing: house Smoking Status: Current every day smoker tobacco type: cigarettes substance use type: does not use ROS <SHELL Knox - Last Filed: 10/09/22 15:28> ROS ED ROS Narrative Constitutional: Negative for fever, chills, weight loss. Positive generalized weakness Eyes: Negative for vision loss, vision change, double vision ENT: Negative for any sore throat, ear pain, congestion Cardiovascular: Negative for any chest pain, tightness, palpitations Respiratory: Positive for any cough, sputum production, hemoptysis, dyspnea, dyspnea on exertion, orthopnea Gastrointestinal: Negative for any abdominal pain, nausea, vomiting, diarrhea, constipation, blood in stool, blood in vomit : Negative for any urinary frequency, dysuria, retention, blood in urine Muscle skeletal: Negative for any muscle joint pain, stiffness, myalgias, arthralgias, neck pain, back pain. Positive for bilateral leg edema Neurological: Negative for any headache, syncope, numbness or tingling, dizziness Skin: Negative for any rashes, lumps, itching, abrasions, lacerations Psychiatric: Negative for any depression, anxiety, stress, suicidal ideation, homicidal ideation Hematologic: Negative for any easy bruising, excessive bruising, easy bleeding Allergies: Negative for any eczema, hives, rash EXAM <SHELL Knox - Last Filed: 10/09/22 15:28> Physical Exam Narrative Exam Narrative: Vital signs reviewed. Patient's heart rate is 105, patient's pulse oxygenation is 92% on room air. HEET: Head normocephalic atraumatic, TMs clear bilaterally. Posterior pharynx is clear, moist mucous membranes. Nares clear bilaterally. Neck: Supple with no lymphadenopathy or tenderness. No signs of meningismus, negative jolt sign. Cardiac: Tachycardic rate no murmurs gallops or rubs, equal peripheral pulses bilaterally. Respiratory: expiratory wheezing to the left upper lobe, crackles in the right lower lobe.. No chest tenderness. Abdomen: Soft, nontender, nondistended. No abdominal bruit or pulsatile masses. No hepatosplenomegaly Extremities: +2 pitting edema. Patient does have a large blister to the right lower extremity., no signs of gross trauma or deformity. Active full range of motion of all extremities. Neuro: Cranial nerves II through XII intact, no focal neurological deficits. Skin: Clean dry and intact with no rash, purpura, petechiae, vesicles or pustules. Backs/flank: No CVA tenderness, no midline spinal tenderness, no deformity. Psych: Normal mood and affect. No SI, HI or acute psychosis. Const Vital Signs: 10/09/22 14:19 10/09/22 14:44 10/09/22 14:45 Temperature 96.5 F L Temperature Source Temporal Pulse Rate 110 H 107 H Respiratory Rate 24 H 20 H Respiratory Effort Short of Breath Respiratory Pattern Blood Pressure 144/73 H Blood Pressure Mean 96 Pulse Ox 92 94 Oxygen Delivery Method Room Air Room Air Room Air 10/09/22 15:15 10/09/22 16:18 10/09/22 18:37 Temperature Temperature Source Pulse Rate 98 100 Respiratory Rate 12 20 H 22 H Respiratory Effort Respiratory Pattern Normal Blood Pressure Blood Pressure Mean Pulse Ox 92 94 Oxygen Delivery Method Room Air Room Air Positive obese Nutritional Appearance: obese <Dr. Juaquin Spear MD - Last Filed: 10/09/22 23:43> Physical Exam Const Vital Signs: 10/09/22 14:19 10/09/22 14:44 10/09/22 14:45 Temperature 96.5 F L Temperature Source Temporal Pulse Rate 110 H 107 H Respiratory Rate 24 H 20 H Respiratory Effort Short of Breath Respiratory Pattern Blood Pressure 144/73 H Blood Pressure Mean 96 Pulse Ox 92 94 Oxygen Delivery Method Room Air Room Air Room Air 10/09/22 15:15 10/09/22 16:18 10/09/22 18:37 Temperature Temperature Source Pulse Rate 98 100 Respiratory Rate 12 20 H 22 H Respiratory Effort Respiratory Pattern Normal Blood Pressure Blood Pressure Mean Pulse Ox 92 94 Oxygen Delivery Method Room Air Room Air MDM <SHELL Knox - Last Filed: 10/09/22 15:28> MDM Lab Data Labs: Laboratory Results - last 24 hr 10/09/22 10/09/22 15:36 18:40 WBC 11.1 H RBC 4.89 Hgb 14.7 Hct 44.6 MCV 91.2 MCH 30.1 MCHC 33.0 RDW Std Deviation 42.2 RDW Coeff of David 12.7 Plt Count 229 MPV 10.6 Immature Gran % (Auto) 0.800 Neut % (Auto) 72.5 H Lymph % (Auto) 15.5 L [place] % (Auto) 9.4 Eos % (Auto) 1.2 Baso % (Auto) 0.6 Absolute Neuts (auto) 8.1 H Absolute Lymphs (auto) 1.73 Nucleated RBC % 0 Sodium 137 Potassium 4.1 Chloride 105 Carbon Dioxide 26.0 Anion Gap 6 BUN 23 H Creatinine 0.87 Estim Creat Clear Calc 68.86 Est GFR (MDRD) Af Amer 115 Est GFR (MDRD) Non-Af 95 BUN/Creatinine Ratio 26.4 H Glucose 106 Calcium 9.5 Troponin I High Sens 103 H 122 H* B-Natriuretic Peptide 73.1 Radiography Diagnostic Testing: Clinical Impression(s) from Imaging Studies Chest X-Ray 10/09/22 16:06 IMPRESSION: Prominent pulmonary vasculature with patchy airspace disease in the lower lung bases predominantly on the right which is concerning for acute infiltrate/pneumonia in the appropriate clinical setting. Superimposed alveolar edema in the cardiogenic setting is not excluded. Electronically Signed: Maximilian Davenport DO at 16:27 EDT , Chest CTA 10/09/22 18:55 IMPRESSION: 1. No demonstrated pulmonary embolism or arterial dissection. 2. There is right middle lobe and right lower lobe pneumonia. Electronically Signed: Fabian Nash MD at 20:11 EDT , EKG Sinus tachycardia: Attestation: I personally reviewed and interpreted this EKG as follows: Interpretation: Sinus Rhythm Comments: Sinus tachycardia, rate 102 bpm, KS interval 186 ms, QRS duration 82 ms, no acute ST elevation, no acute infarct noted. Treatment and Re-Evaluation :: Patient appears to be in mild distress, patient does have adventitious lung sounds, both as expiratory wheezes to the left upper lobe as well as to crackles to the right lower lobe. Patient also has +2 pitting edema to lower extremities. He presents to the emergency department for worsening shortness of breath, cough, lower edema swelling. Concerning for CHF exacerbation, fluid overload, pneumonia are all in the differential. Patient received two-view chest x-ray as well as a cardiac work-up including a BNP. All radiologic examinations were read, reviewed by the emergency department attending. From these reads, a plan of care will be put in place. <Dr. Juaquin Spaer MD - Last Filed: 10/09/22 23:43> [facility] MDM Narrative Medical decision making narrative: I have personally performed a face to face assessment of the patient and have reviewed the ROMÁN Note. I performed a substantive portion of the visit including all aspects of the following. My vazquez findings include: History is remarkable for shortness of breath over the past 4 to 5 days. He endorses orthopnea and having to sleep in a chair for the past month. He denies history of coronary disease or congestive heart failure. He does endorse swelling of his lower extremities. He had a significant posterior anterior mid right leg. He denies fever, chills night sweats. Denies headache, visual, ocular auditory symptoms. He does have a slight cough. He is a smoker of 1.5 packs/day. His cough is essentially nonproductive. He denies GI symptoms. He denies urologic symptoms. He denies history of VTE. Patient reports compliance with his medication. He does have diabetic neuropathy. He is on insulin as well as Trulicity. He is also on Celebrex. Is having 3 of type 2 diabetes requiring insulin, hypertension, hypercholesterol and and GERD. Exam is patient is a obese gentleman. His vital signs remarkable elevated blood pressure and heart rate and respiratory rate initially. Heart rate and respiratory rate improved after he remains still in his bed. HEENT exam reveals no acute abnormality. Conjunctive is pink. Lungs reveal rales right lower lobe posteriorly. Equivocal egophony. There is no dullness to percussion. Heart is regular. Rate is normal. There is no murmur, gallop or rub. Abdomen is prominent soft nontender. Exam is limited because of body habitus. Lower extremity exam reveals pitting edema bilateral with venous stasis changes. There is a large blister anterior right leg with clear straw-colored fluid. Medical Decision Making differential diagnosis would include congestive heart failure, renal failure, pneumonia, dependent edema. Will obtain CBC to assess white count differential as well as H&H. Electrolyte panel to assess renal function, glucose and anion gap since he is diabetic requiring insulin. Chest x-ray is obtained to determine the etiology of his rales. Other additions or changes: Since patient did not have a fever and a significant white count hospitalist requested a CTA prior to admission. This was performed and confirms that patient has a right lower lobe pneumonia. Of note 30% of patients who have pneumonia do not have a fever. And it is not uncommon not to have a white count either. History & Record Review Additional record(s) reviewed:: Prior outpatient record (Office visit notes for diabetes, hypertension and hypercholesterolemia.), Prior ED visit and Prior labs Lab Data Attestation: I reviewed the patient's lab results. Lab results narrative: White count is slightly elevated with slight shift. There is no bandemia. He is not anemic. Labs: Laboratory Results - last 24 hr 10/09/22 10/09/22 15:36 18:40 WBC 11.1 H RBC 4.89 Hgb 14.7 Hct 44.6 MCV 91.2 MCH 30.1 MCHC 33.0 RDW Std Deviation 42.2 RDW Coeff of David 12.7 Plt Count 229 MPV 10.6 Immature Gran % (Auto) 0.800 Neut % (Auto) 72.5 H Lymph % (Auto) 15.5 L [place] % (Auto) 9.4 Eos % (Auto) 1.2 Baso % (Auto) 0.6 Absolute Neuts (auto) 8.1 H Absolute Lymphs (auto) 1.73 Nucleated RBC % 0 Sodium 137 Potassium 4.1 Chloride 105 Carbon Dioxide 26.0 Anion Gap 6 BUN 23 H Creatinine 0.87 Estim Creat Clear Calc 68.86 Est GFR (MDRD) Af Amer 115 Est GFR (MDRD) Non-Af 95 BUN/Creatinine Ratio 26.4 H Glucose 106 Calcium 9.5 Troponin I High Sens 103 H 122 H* B-Natriuretic Peptide 73.1 Radiography Chest X-Ray - ED: 2 View and Read by ED Physician (There is interstitial patchy infiltrate noted right lower lobe. Cardiac silhouette size is unremarkable. Perihilar regions unremarkable. Osseous structures are normal. The patchy infiltrate in the right low lower lobe corresponds with rales and egophony noted on physical exam.) Diagnostic Testing: Clinical Impression(s) from Imaging Studies Chest X-Ray 10/09/22 16:06 IMPRESSION: Prominent pulmonary vasculature with patchy airspace disease in the lower lung bases predominantly on the right which is concerning for acute infiltrate/pneumonia in the appropriate clinical setting. Superimposed alveolar edema in the cardiogenic setting is not excluded. Electronically Signed: Maximilian Davenport DO at 16:27 EDT , Chest CTA 10/09/22 18:55 IMPRESSION: 1. No demonstrated pulmonary embolism or arterial dissection. 2. There is right middle lobe and right lower lobe pneumonia. Electronically Signed: Fabian Nash MD at 20:11 EDT , Discharge Plan Disposition Disposition: Acute Care Hospital [facility] Discharge Date/Time: 10/09/22 21:33
[2022-10-09 15:45] LABS: Absolute Lymphocyte Count 1.73 X10^3/uL (0.83-4.51); Absolute Neutrophil Count 8.1 X10^3/uL (2.0-7.7); Basophil# 0.07 X10^3/uL; Basophil% 0.6 % (0-1); Eosinophil# 0.13 X10^3/uL; Eosinophils% 1.2 % (0-5); Hematocrit 44.6 % (40-54); Hemoglobin 14.7 g/dL (13.0-16.5); Lymphocyte # 1.73 X10^3/ul (0.83-4.51); Lymphocyte % 15.5 % (19-41); Mean Corpuscular Hgb 30.1 pg (27.0-32.0); Mean Corpuscular Volume 91.2 fL (80-94); Mean Platelet Vol. 10.6 fl (6.2-12.0); Monocyte# 1.05 X10^3/uL; Monocyte% 9.4 % (0-10); NRBC Flagged by Analyzer 0 % (0-5); Neutrophil # 8.07 X10^3/uL (2.7-7.7); Neutrophil % 72.5 % (47-70); Platelet Count 229 K/mm3 (150-450); RBC Distribution Width CV 12.7 % (11.6-14.6); RBC Distribution Width SD 42.2 fl (35.1-43.9); Red Blood Count 4.89 M/mm3 (4.6-6.2); White Blood Count 11.1 K/mm3 (4.4-11.0)
--- NOTE | 2022-10-09 16:06 | RAD_ITS ---
STUDY: X-RAY CHEST REASON FOR EXAM: Male, 62 years old. cough TECHNIQUE: Single AP portable view of the chest. COMPARISON: 10/18/2021 FINDINGS: Prominent pulmonary vasculature with patchy airspace disease in the lower lung bases predominantly on the right which is concerning for acute infiltrate/pneumonia in the appropriate clinical setting. Superimposed alveolar edema in the cardiogenic setting is not excluded. There is no demonstrated pleural abnormality. Normal size heart. Normal mediastinum and mercedes. Mild prominent pulmonary arteries are noted. Normal visualized aortic arch and descending thoracic aorta. Normal visualized thoracic spine. Normal visualized ribs, clavicles, and shoulders. There is no demonstrated abnormality of the visualized soft tissue structures of the upper abdomen. RAD/Chest PA and Lateral IMPRESSION: Prominent pulmonary vasculature with patchy airspace disease in the lower lung bases predominantly on the right which is concerning for acute infiltrate/pneumonia in the appropriate clinical setting. Superimposed alveolar edema in the cardiogenic setting is not excluded. Electronically Signed: Maximilian Davenport DO at 16:27 EDT ,
[2022-10-09 16:09] LABS: Anion Gap 6 (5-15); BUN 23 mg/dL (7-18); BUN/Creat Ratio 26.4 RATIO (10-20); Calcium,Total 9.5 mg/dL (8.5-10.1); Chloride 105 mmol/L (98-107); Creatinine, Serum 0.87 mg/dL (0.70-1.30); EST Glomerular Filtration Rate 95 mL/min (>60); Est Glom Filt Rate - Afr Amer 115 mL/min (>60); Estimated Creatinine Clearance 68.86 ml/min; Glucose 106 mg/dL (74-106); Potassium 4.1 mmol/L (3.5-5.1); Sodium Level 137 mmol/L (136-145); Troponin-I HS 103 pg/mL (3.0-78.0)
[2022-10-09 17:32] LABS: BNP,B-Type NATRIURETIC PEPTIDE 73.1 pg/mL (0-100)
[2022-10-09] MEDS: Ceftriaxone 1 GM/50 ML BAG IV (18:50)
--- NOTE | 2022-10-09 18:55 | CT_ITS ---
EXAM: CT ANGIOGRAPHY CHEST WITHOUT AND WITH INTRAVENOUS CONTRAST CLINICAL INDICATION: concern for PE TECHNIQUE: Helically acquired angiography images were obtained of the chest without and with intravenous contrast. This CT exam was performed using one or more of the following dose reduction techniques: automated exposure control, adjustment of the mA and/or kV according to patient size, and/or use of iterative reconstruction technique. MIP reconstructed images were created and reviewed. CONTRAST: IV 100mL [id number] RADIATION DOSE: CTDIvol = 16.22 mGy, DLP = 548.96 mGy-cm COMPARISON: CT abdomen and pelvis dated 05/23/2020 FINDINGS: PULMONARY ARTERIES: Unremarkable. No demonstrated pulmonary embolism or arterial dissection. AORTA: There is atherosclerotic calcification of the aortic arch with tortuosity and elongation of the aortic arch and descending thoracic aorta. Normal in caliber. No evidence of dissection. GREAT VESSELS OF AORTIC ARCH: See above. LUNGS AND PLEURAL SPACES: There is right middle lobe and right lower lobe pneumonia. Patchy alveolar infiltrates in the right middle lobe and right lower lobe. No mass. No pleural effusion or thickening. HEART: There are calcifications of the coronary arteries. Heart size is normal. No pericardial effusion. MEDIASTINUM: Unremarkable. No mediastinal or hilar adenopathy. Esophagus is unremarkable. No hiatal hernia. THYROID: Unremarkable. No thyroid lesions. BONES/JOINTS: There are degenerative changes of the shoulders. There are multi-level degenerative changes of the thoracic spine. T11 old stable compression deformity. No suspicious lytic or blastic abnormality. OTHER FINDINGS: Post-processing of the angiographic images was performed, with axial imaging and 3D reconstruction. MIPS images were obtained. CT/CTA Chest W/WO Contrast IMPRESSION: 1. No demonstrated pulmonary embolism or arterial dissection. 2. There is right middle lobe and right lower lobe pneumonia. Electronically Signed: Fabian Nash MD at 20:11 EDT ,
--- NOTE | 2022-10-09 18:57 | HP.PCM_ITS ---
[facility] - [facility] General Date of Service: 10/09/22 Chief Complaint: shortness of breath HPI Narrative KIEL CARRANZA, is a 62 M with a PMH as outlined who presents via the ED On 10/09/2022 with a complaint of shortness of breath. He is being worked up to get a valve replacement, of the mitral valve it appears, and was supposed to follow up at [facility] tomorrow. He started having worsening cough, increased shortness of breath and swelling of his lower extremities over the last week. He admitted to a cough and generalised weakness. REview of systems was otherwise negative. Vitals in the ED were temp of 96.5F, WI of 107, BP of 144/73 and RR of 22. He was saturating at 94% on room air. CBC showed wbc of 11.1, Hb of 14.7 and platelets of 229. CHemistry was largely unremarkable. Influenza and covid screen was negative. CXR showed prominent pulmonary vasculature with patchy airspace disease concerning for acute infiltrate/pneumonia though superimposed alveolar edema in the cardiogenic setting isnt excluded. BNP was however only 71. He is being admitted to be managed for community acquired pneumonia. I requested for a CT chest to rule out a PE in light of super morbid obesity and shortness of breath. [facility] Medical History Benign essential hypertension COPD (chronic obstructive pulmonary disease) HLD (hyperlipidemia) Leaky heart valve Morbid obesity MANISH (obstructive sleep apnea) Type II diabetes mellitus Home Medications pregabalin 100 mg capsule (Lyrica) 100 mg PO TID 12/11/12 [History Last Taken Unknown] diltiazem HCl 180 mg capsule,24 hr,extended release 180 mg PO DAILY 11/20/13 [History Last Taken Unknown] hydrochlorothiazide 25 mg tablet 25 mg PO DAILY 11/20/13 [History Last Taken Unknown] metformin 500 mg tablet 500 mg PO 4X/DAY 11/20/13 [History Last Taken Unknown] atorvastatin 10 mg tablet 10 mg PO QHS 11/03/16 [History Last Taken Unknown] dulaglutide 0.75 mg/0.5 mL subcutaneous pen injector (Trulicity) 1.5 mg SQ QWEEK 11/03/16 [History Last Taken Unknown] glimepiride 2 mg tablet 4 mg PO DAILY 11/03/16 [History Last Taken Unknown] budesonide-formoterol HFA 80 mcg-4.5 mcg/actuation aerosol inhaler 2 puff inhalation BID 10/30/20 [History Last Taken Unknown] celecoxib 200 mg capsule (Celebrex) 200 mg PO BID 10/30/20 [History Last Taken Unknown] insulin aspart U-100 100 unit/mL (3 mL) subcutaneous pen (Novolog FlexPen U-100 Insulin aspart) 2 unit subcut TID 10/30/20 [History Last Taken Unknown] oxycodone myristate 18 mg capsule sprinkle extended release 12hr(DON'T CRUSH) (Xtampza ER) 18 mg PO BID 10/30/20 [History Last Taken Unknown] pantoprazole 40 mg tablet,delayed release 40 mg PO DAILY 10/30/20 [History Last Taken Unknown] acetaminophen 500 mg tablet 1,000 mg PO TID PRN Pain 10/18/21 [History Last Taken Unknown] albuterol sulfate 90 mcg/actuation aerosol inhaler (Ventolin HFA) 1 - 2 puff inhalation Q4H PRN PRN Wheezing #8.5 grams 10/18/21 [Rx Last Taken Unknown] cyclobenzaprine 10 mg tablet 10 mg PO TID PRN Muscle Spasm #20 TABLETS 09/23/22 [Rx Last Taken Unknown] Allergy/AdvReac Type Severity Reaction Status Date / Time Penicillins Allergy Hives Verified 10/09/22 14:22 lisinopril AdvReac Intermediate Upset Verified 10/09/22 18:38 Stomach NASAL SPRAY AdvReac Intermediate Chest Uncoded 10/09/22 14:22 tightness Surgical History History of back surgery Social History (Updated 10/09/22 @ 14:46 by Carolina Alba) household members: spouse housing: house Smoking Status: Current every day smoker tobacco type: cigarettes substance use type: does not use ROS Constitutional Constitutional: Reports fatigue, malaise and weakness; Denies anorexia, change in weight, chills or fever(s) Eyes Eyes: Denies change in vision ENT HEENT: Denies dysphagia, headache(s), nasal congestion, nasal discharge, sore throat or throat swelling Cardiovascular Cardiovascular: Denies chest pain, edema or palpitations Respiratory/Chest Respiratory/Chest: Reports cough, shortness of breath at rest, shortness of breath with exertion and wheezing; Denies hemoptysis Gastrointestinal Gastrointestinal: Denies abdominal pain, diarrhea, dyspepsia, nausea or vomiting Genitourinary Genitourinary: Denies dysuria Musculoskeletal Musculoskeletal: Denies joint stiffness or joint swelling Neurologic Neurologic: Denies confusion, dizziness, focal weakness, headache(s), lack of c oordination, seizures, tremor(s) or weakness Endocrine Endocrinology: Denies change in body appearance Vital Signs Vital Signs Vital Signs: 10/09/22 14:19 10/09/22 14:44 10/09/22 14:45 Temperature 96.5 F L Temperature Source Temporal Pulse Rate 110 H 107 H Respiratory Rate 24 H 20 H Respiratory Effort Short of Breath Respiratory Pattern Blood Pressure 144/73 H Blood Pressure Mean 96 Pulse Ox 92 94 Oxygen Delivery Method Room Air Room Air Room Air 10/09/22 15:15 10/09/22 16:18 10/09/22 18:37 Temperature Temperature Source Pulse Rate 98 100 Respiratory Rate 12 20 H 22 H Respiratory Effort Respiratory Pattern Normal Blood Pressure Blood Pressure Mean Pulse Ox 92 94 Oxygen Delivery Method Room Air Room Air Weight Weight: 295 lb 10.238 oz Body Mass Index (BMI) 54.1 Physical Exam Const alert, oriented x3 and no apparent distress Constitutional Narrative: super morbid obesity General Appearance: cooperative HEENT normocephalic, head/scalp atraumatic and moist oral mucous membranes Eyes PERRL and EOMs intact bilaterally Neck no lymphadenopathy, supple and no JVD Lymph Lymphatic: no lymphadenopathy noted Resp Resp Narrative: diminished breath sounds bibasally, few crackles. On room air. Mild wheezing bilaterally Cardio regular rate, regular rhythm, S1 normal heart sound, S2 normal heart sound and no murmurs GI normal to inspection, nondistended, normoactive bowel sounds, soft to palpation, non-tender and non-distended GI Narrative: obese abdomen Extremity normal capillary refill and no clubbing, cyanosis or edema Skin Skin Narrative: bilateral LE 2+ pitting edema. Has a large blister on the right parker. Neuro CN's II-XII intact bilaterally, no focal motor deficits and no sensory deficits noted Psych thought process normal, cooperative and affect normal Appearance: appropriate Results Lab / Micro Data 10/09/22 15:36 10/09/22 15:36 Labs: Laboratory Results - last 24 hr 10/09/22 15:36: WBC 11.1 H, RBC 4.89, Hgb 14.7, Hct 44.6, MCV 91.2, MCH 30.1, MCHC 33.0, RDW Std Deviation 42.2, RDW Coeff of David 12.7, Plt Count 229, MPV 10.6, Immature Gran % (Auto) 0.800, Neut % (Auto) 72.5 H, Lymph % (Auto) 15.5 L, [place] % (Auto) 9.4, Eos % (Auto) 1.2, Baso % (Auto) 0.6, Absolute Neuts (auto) 8.1 H, Absolute Lymphs (auto) 1.73, Nucleated RBC % 0, Sodium 137, Potassium 4.1, Chloride 105, Carbon Dioxide 26.0, Anion Gap 6, BUN 23 H, Creatinine 0.87, Estim Creat Clear Calc 68.86, Est GFR (MDRD) Af Amer 115, Est GFR (MDRD) Non-Af 95, BUN/Creatinine Ratio 26.4 H, Glucose 106, Calcium 9.5, Troponin I High Sens 103 H, B-Natriuretic Peptide 73.1 Micro: Microbiology 10/09/22 15:46 Nasal Secretion SARS-CoV-2 & FLU Antigen (Rapid) - Final Radiology Impression Chest X-Ray 10/09/22 16:06 IMPRESSION: Prominent pulmonary vasculature with patchy airspace disease in the lower lung bases predominantly on the right which is concerning for acute infiltrate/pneumonia in the appropriate clinical setting. Superimposed alveolar edema in the cardiogenic setting is not excluded. Electronically Signed: Maximilian Davenport DO at 16:27 EDT , Assessment & Plan Assessment/Plan (1) Pneumonia: (2) COPD exacerbation: PLAN: Plan #COmmunity acquired pneumonia * admit to Med surg * had a productive cough and shortness of breath which is worsening * CXR showed prominent pulmonary vasculature with patchy airspace disease in the lower lung bases predominantly on the right which is concerning for acute infiltrate/pneumonia * wbc minimally elevated at 11.1 * check urine for strep and legionella * start on IV ceftriaxone and azithromycin * get sputum cultures * start on IV lasix also, o/a of lower extremity edema, though BNP is only 73 * IV solumedrol 40mg q8 * CTA chest also ordered and pending * #Type 2 diabetes mellitus: * On dulaglutide 1.5 mg subcu weekly as well as glimepiride and metformin. * Insulin sliding scale. Accu-Cheks ACHS. #Hypertension: On hydrochlorothiazide and Cardizem. #Hyperlipidemia: On statin #MANISH: On CPAP nightly. He states his setting is [id number] DVT prophylaxis: Lovenox Code status: full code * Patient counseled extensively about different types of CODE STATUS including full code, DNR CCA and DNR CCA. Patient elects to be full code * Total [id number]: 17 mins Charges/Coding Visit Charges Inpatient E&M: 38231 Init Hosp L3 Procedures Hospitalists Procedures: 67206 Advncd Care Plan 30 Min
[2022-10-09 20:00] LABS: Troponin-I HS 122 pg/mL (3.0-78.0)
[2022-10-09] MEDS: Insulin Lispro 100 UNIT/ML INSULN.PEN SC (23:14)
[2022-10-09] MEDS: 0.9% Saline Lock 10 ML Syringe IV (23:15)
[2022-10-09 23:33] LABS: Bedside Glucose 224 mg/dL (74-106)
[2022-10-10] MEDS: Ipratropium/Albuterol Sulfate 3 ML AMPUL.NEB INHALATION (00:15)
[2022-10-10 00:16] VITALS: PULSE 96; RESP 20
--- NOTE | 2022-10-10 00:49 | ECHOCS_ITS ---
Reason For Study: Elevated Troponin Procedure This was a 2D Doppler, Color Flow transthoracic echocardiogram. The study was technically difficult. Contrast injection was performed. Exam performed portable in patient room. Left Ventricle Normal LV size. The estimated ejection fraction is 55 %. No evidence for diastolic dysfunction. No regional wall motion abnormalities noted. Right Ventricle Normal RV size. Normal systolic function. Atria Normal left atrium. Normal right atrium. No doppler evidence for ASD. Mitral Valve There is no mitral valve stenosis. No mitral valve insufficiency. Tricuspid Valve There is no tricuspid stenosis. Trivial tricuspid valve insufficiency. Aortic Valve The aortic valve is not well visualized. Moderate aortic stenosis. No aortic valve insufficiency. Pulmonic Valve There is no pulmonic valvular stenosis. No pulmonic valve insufficiency. Great Vessels Normal aortic root. Pericardium/Pleural No pericardial effusion. Medication Diluted definity 2ml given slow IV push to enhance endocardial definition. MMode/2D Measurements & Calculations LVIDd: 5.2 cm IVSd: 1.4 cm LVOT diam: 2.2 cm LVIDs: 3.6 cm LVPWd: 1.3 cm RVDd: 3.4 cm FS: 32.0 % LVOT area: 3.9 cm2 Ao root diam: 3.9 cm LAV(MOD-bp): 55.6 ml LA A4 area: 20.6 cm2 LAV(MOD-bp) Indexed: 24.8 ml/m2 LAV(MOD-sp2): 43.1 ml LAV(MOD-sp4): 59.3 ml LA dimension(2D): 4.3 cm RA A4 area: 10.3 cm2 Time Measurements MV dec time: 0.22 sec Doppler Measurements & Calculations MV E max arsh: 100.5 cm/sec Lat Peak E' Arsh: 13.7 cm/sec Med Peak E' Arsh: 11.9 cm/sec MV A max arsh: 132.0 cm/sec E/E' lat: 7.3 E/E' med: 8.5 MV E/A: 0.76 MV V2 max: 159.0 cm/sec MV dec slope: 448.3 cm/sec2 Ao V2 max: 311.9 cm/sec MV max P.1 mmHg Ao max P.1 mmHg MV V2 mean: 107.5 cm/sec Ao V2 mean: 240.4 cm/sec MV mean P.1 mmHg Ao mean P.0 mmHg MV V2 VTI: 29.9 cm Ao V2 VTI: 62.4 cm MVA(VTI): 3.3 cm2 AV (velocity ratio): 0.40 MARY(I,D): 1.6 cm2 MARY(V,D): 1.4 cm2 LV V1 max: 109.3 cm/sec SV(LVOT): 97.6 ml PA V2 max: 120.6 cm/sec LV V1 max P.8 mmHg LV V1 mean P.5 mmHg LV V1 mean: 91.1 cm/sec LV V1 VTI: 24.9 cm ECHO/Echo Complete W/ Contrast Interpretation Summary The estimated ejection fraction is 55 %. No evidence for diastolic dysfunction. Moderate aortic stenosis. Ordering Physician: Josefina Khan Referring Physician: Juan Miguel Russell Performed By: Shira Leon RDCS, RVT
--- NOTE | 2022-10-10 01:11 | NURSING ---
LAB notified of troponin order
[2022-10-10 02:22] LABS: Troponin-I HS 118 pg/mL (3.0-78.0)
[2022-10-10 02:24] LABS: Anion Gap 6 (5-15); BUN 23 mg/dL (7-18); BUN/Creat Ratio 21.7 RATIO (10-20); Calcium,Total 9.4 mg/dL (8.5-10.1); Chloride 104 mmol/L (98-107); Creatinine, Serum 1.06 mg/dL (0.70-1.30); EST Glomerular Filtration Rate 76 mL/min (>60); Est Glom Filt Rate - Afr Amer 91 mL/min (>60); Estimated Creatinine Clearance 56.52 ml/min; Glucose 193 mg/dL (74-106); Potassium 4.4 mmol/L (3.5-5.1); Sodium Level 137 mmol/L (136-145)
[2022-10-10 02:31] LABS: Absolute Lymphocyte Count 1.07 X10^3/uL (0.83-4.51); Absolute Neutrophil Count 9.4 X10^3/uL (2.0-7.7); Basophil# 0.06 X10^3/uL; Basophil% 0.5 % (0-1); Eosinophil# 0.09 X10^3/uL; Eosinophils% 0.8 % (0-5); Hematocrit 42.8 % (40-54); Lymphocyte # 1.07 X10^3/ul (0.83-4.51); Lymphocyte % 9.4 % (19-41); Mean Corp Hgb Conc 32.7 g/dL (32-36); Mean Corpuscular Hgb 30.1 pg (27.0-32.0); Mean Platelet Vol. 11.3 fl (6.2-12.0); Monocyte# 0.73 X10^3/uL; Monocyte% 6.4 % (0-10); NRBC Flagged by Analyzer 0 % (0-5); Neutrophil # 9.39 X10^3/uL (2.7-7.7); Platelet Count 221 K/mm3 (150-450); RBC Distribution Width CV 12.9 % (11.6-14.6); RBC Distribution Width SD 43.8 fl (35.1-43.9); Red Blood Count 4.65 M/mm3 (4.6-6.2); White Blood Count 11.4 K/mm3 (4.4-11.0)
[2022-10-10 04:21] VITALS: BP 130/60; PULSE 94; RESP 20; TEMP 36.2; O2SAT 94
[2022-10-10] MEDS: Nystatin Powder 15gm Bottle 1 APPLIC TOPICAL ×3 (06:57→21:52)
[2022-10-10 07:12] LABS: Bedside Glucose 286 mg/dL (74-106)
--- NOTE | 2022-10-10 09:42 | CASEMGMT ---
THOMAS SANTIAGO Assessment: Face to Face with pt for initial transition planning/care coordination assessment. RN PAMELA introduced self and role at [facility], pt voices understanding and consents to assessment. Pt is A/O x4 and answers all questions appropriately at this time. Pt sitting on edge of bed with oxygen on in no distress. Care providers, pharmacy, and demographics verified/updated. Admitting Dx: pneumonia, COPD exac PCP:Drew Specialists:Pt sees cardio and pulm at [facility]. Pt did not know names of specialists. Preferred Pharmacy: [facility] Insurance: [employer] [facility], [facility] Prescription Benefit: yes LNOK: Shweta Catherine, ; Apple Gloria, dtr Living Arrangements: Pt lives in a double wide with a basement with a total of 15 steps to enter in the front. Pt states if he drives around to the front he can use only 5 steps with a rail but with missing pieces. Pt states he has a ramp in the back. Pt lives with his , 2 dtrs and one of their boyfriend, 3 grandchildren and a son. Pt reports up until recently he was I in ADL's. His and son are currently assisting with bathing and dressing if he needs it. Pt dtr does the laundry, pt gets groceries himself of his dtr gets them. Pt dtr provides meals. Pt denies concerns at home. Transportation: Pt drives self and denies concerns with transportation. DME/HHC/SNF: Pt has a 4ww, w/c, rascal scooter, CPAP, pox, BGM with sufficient supply strips and lancets and insulin. Pt states up until recently he did not use AD but has since started using the walker. Pt denies hx of HHC or SNF stays. Pt states no concerns with going home at time of dc. Therapy in to eval currently. Pt aware that RN CM will follow up with him. Pt states no further concerns/needs. CM to follow. Advised pt to ask CM if any further question/concerns/needs arise, voices understanding. Pt Goal: Home Plan: Home, follow therapy and oxygen needs
[2022-10-10 09:59] VITALS: BP 154/85; PULSE 110; RESP 18; TEMP 36.7; O2SAT 96
[2022-10-10] MEDS: Insulin Lispro 100 UNIT/ML INSULN.PEN SC ×7 (10:05→21:41)
[2022-10-10] MEDS: Losartan Potassium 50 MG Tablet PO (10:07)
[2022-10-10] MEDS: hydroCHLOROthiazide 12.5mg 12.5 MG PO (10:07)
[2022-10-10] MEDS: Glimepiride 2 MG Tablet 4 MG PO (10:08)
[2022-10-10] MEDS: Celecoxib 200 MG Capsule PO ×2 (10:08→21:51)
[2022-10-10] MEDS: Carvedilol 3.125 MG TABLET PO ×2 (10:09→17:06)
[2022-10-10] MEDS: Enoxaparin 40 MG/0.4 ML Syringe SC (10:09)
[2022-10-10] MEDS: Pantoprazole Sodium 40 MG Tablet PO (10:09)
[2022-10-10] MEDS: dilTIAZem CD 180 MG Capsule PO (10:09)
[2022-10-10] MEDS: Furosemide 40 MG/4 ML Vial IV (10:10)
[2022-10-10] MEDS: 0.9% Saline Lock 10 ML Syringe IV ×2 (10:17→21:51)
[2022-10-10] MEDS: Pregabalin 50 MG Capsule 200 MG PO ×2 (10:20→21:51)
[2022-10-10] MEDS: oxyCODONE HCl Cr 10 MG Tablet 20 MG PO ×2 (10:21→21:51)
--- NOTE | 2022-10-10 12:45 | PN_ITS ---
Subjective Subjective Patient seen and examined. He had no active complaints. He feels his breathing is improving slightly. He is still coughing. He denies any chest pain or any other symptoms. Review of systems otherwise negative. He is on 1 L of oxygen by nasal cannula. Objective Data Objective Data Vital Signs: Vital Signs Temp Pulse Resp BP Pulse Ox O2 Del Method O2 Flow Rate 98.1 F 110 H 18 154/85 H 96 Nasal Cannula 1 10/10/22 09:59 10/10/22 09:59 10/10/22 09:59 10/10/22 09:59 10/10/22 09:59 10/10/22 09:59 10/10/22 10:21 Oxygen Flow Rate (L/min) 1 Oxygen Delivery Method Nasal Cannula Weight: 291 lb 14.272 oz Body Mass Index (BMI) 53.4 Intake & Output: Intake and Output for Last 24 Hours 10/08/22 10/09/22 10/10/22 23:59 23:59 23:59 Intake Total 305 / 305 Balance 305 / 305 Lab / Micro Data 10/10/22 01:23 10/10/22 01:23 Labs: Laboratory Results - last 24 hr 10/09/22 15:36: WBC 11.1 H, RBC 4.89, Hgb 14.7, Hct 44.6, MCV 91.2, MCH 30.1, MCHC 33.0, RDW Std Deviation 42.2, RDW Coeff of David 12.7, Plt Count 229, MPV 10.6, Immature Gran % (Auto) 0.800, Neut % (Auto) 72.5 H, Lymph % (Auto) 15.5 L, [place] % (Auto) 9.4, Eos % (Auto) 1.2, Baso % (Auto) 0.6, Absolute Neuts (auto) 8.1 H, Absolute Lymphs (auto) 1.73, Nucleated RBC % 0, Sodium 137, Potassium 4.1, Chloride 105, Carbon Dioxide 26.0, Anion Gap 6, BUN 23 H, Creatinine 0.87, Estim Creat Clear Calc 68.86, Est GFR (MDRD) Af Amer 115, Est GFR (MDRD) Non-Af 95, BUN/Creatinine Ratio 26.4 H, Glucose 106, Calcium 9.5, Troponin I High Sens 103 H, B-Natriuretic Peptide 73.1 10/09/22 18:40: Troponin I High Sens 122 H* 10/09/22 23:06: POC Glucose 224 H 10/10/22 01:23: WBC 11.4 H, RBC 4.65, Hgb 14.0, Hct 42.8, MCV 92.0, MCH 30.1, MCHC 32.7, RDW Std Deviation 43.8, RDW Coeff of David 12.9, Plt Count 221, MPV 11.3, Immature Gran % (Auto) 0.900, Neut % (Auto) 82.0 H, Lymph % (Auto) 9.4 L, [place] % (Auto) 6.4, Eos % (Auto) 0.8, Baso % (Auto) 0.5, Absolute Neuts (auto) 9.4 H, Absolute Lymphs (auto) 1.07, Nucleated RBC % 0, Sodium 137, Potassium 4.4, Chloride 104, Carbon Dioxide 27.0, Anion Gap 6, BUN 23 H, Creatinine 1.06, Estim Creat Clear Calc 56.52, Est GFR (MDRD) Af Amer 91, Est GFR (MDRD) Non-Af 76, BUN/Creatinine Ratio 21.7 H, Glucose 193 H, Calcium 9.4, Troponin I High Sens 118 H 10/10/22 06:48: POC Glucose 286 H Micro: Microbiology 10/09/22 15:46 Nasal Secretion SARS-CoV-2 & FLU Antigen (Rapid) - Final Radiography Diagnostic Testing: Radiology Impression Chest X-Ray 10/09/22 16:06 IMPRESSION: Prominent pulmonary vasculature with patchy airspace disease in the lower lung bases predominantly on the right which is concerning for acute infiltrate/pneumonia in the appropriate clinical setting. Superimposed alveolar edema in the cardiogenic setting is not excluded. Electronically Signed: Maximilian Davenport DO at 16:27 EDT , Chest CTA 10/09/22 18:55 IMPRESSION: 1. No demonstrated pulmonary embolism or arterial dissection. 2. There is right middle lobe and right lower lobe pneumonia. Electronically Signed: Fabian Nash MD at 20:11 EDT , Physical Exam Const alert, oriented x3 and no apparent distress Constitutional Narrative: super morbid obesity General Appearance: cooperative HEENT normocephalic, head/scalp atraumatic and moist oral mucous membranes Eyes PERRL and EOMs intact bilaterally Neck no lymphadenopathy, supple and no JVD Lymph Lymphatic: no lymphadenopathy noted Resp Resp Narrative: diminished breath sounds bibasally, few crackles. On room air. Minimal wheezing bilaterally. On 1L of oxygen by nasal canula. Cardio regular rate, regular rhythm, S1 normal heart sound, S2 normal heart sound and no murmurs GI normal to inspection, nondistended, normoactive bowel sounds, soft to palpation, non-tender and non-distended GI Narrative: obese abdomen Extremity normal capillary refill and no clubbing, cyanosis or edema Skin Skin Narrative: bilateral LE 2+ pitting edema. blister on right parker has ruptured. Neuro CN's II-XII intact bilaterally, no focal motor deficits and no sensory deficits noted Psych thought process normal, cooperative and affect normal Appearance: appropriate Assessment & Plan Assessment/Plan (1) Pneumonia: (2) COPD exacerbation: PLAN: Plan #COmmunity acquired pneumonia * CXR showed prominent pulmonary vasculature with patchy airspace disease in the lower lung bases predominantly on the right which is concerning for acute infiltrate/pneumonia * wbc trended up slightly today to 11.4 * urine for strep and legionella negative. * start on IV ceftriaxone and azithromycin * sputum cultures pending * also on IV lasix * switch to PO prednisone * CTA chest was negative for PE but showed right middle and lower lobe pneumonia * * #Type 2 diabetes mellitus: * On dulaglutide 1.5 mg subcu weekly as well as glimepiride and metformin. * Insulin sliding scale. Accu-Cheks ACHS. #Hypertension: On hydrochlorothiazide and Cardizem. #Hyperlipidemia: On statin #MANISH: On CPAP nightly. He states his setting is [id number] #Nicotine dependence: counseled to quit. Still smokes about 1 pack daily. Will start on nicotine patch 21 mg daily. DVT prophylaxis: Lovenox Code status: full code * Charges/Coding Visit Charges Inpatient E&M: 69998 Subs Hosp L2
[2022-10-10 12:48] LABS: Bedside Glucose 325 mg/dL (74-106)
[2022-10-10 13:32] VITALS: BP 136/68; PULSE 111; RESP 18; TEMP 36.8; O2SAT 96
[2022-10-10 16:27] LABS: Bedside Glucose 354 mg/dL (74-106)
[2022-10-10] MEDS: Acetaminophen 500 MG Tablet 1000 MG PO (17:15)
[2022-10-10 20:30] VITALS: BP 144/68; PULSE 97; RESP 16; TEMP 36.6; O2SAT 97
--- NOTE | 2022-10-10 20:53 | CPS ---
Pt set up on own CPAP machine for the night, with 2L oxygen bled in.
[2022-10-10] MEDS: Ceftriaxone 1 GM/50 ML BAG IV (21:43)
[2022-10-10] MEDS: Atorvastatin Calcium 10 MG Tablet PO (21:52)
[2022-10-11] VITALS (8 sets, daily range): BP systolic 143–146; BP diastolic 72–77; PULSE 81–98; RESP 16–20; TEMP 36.5–36.6; O2SAT 89–97
[2022-10-11] LABS: Bedside Glucose 250 mg/dL (74-106)
[2022-10-11] MEDS: Ipratropium/Albuterol Sulfate 3 ML AMPUL.NEB INHALATION ×2 (01:56→06:36)
[2022-10-11] MEDS: Nystatin Powder 15gm Bottle 1 APPLIC TOPICAL (05:50)
[2022-10-11] MEDS: Insulin Lispro 100 UNIT/ML INSULN.PEN SC ×4 (05:53→13:01)
[2022-10-11 06:09] LABS: Absolute Lymphocyte Count 2.03 X10^3/uL (0.83-4.51); Absolute Neutrophil Count 8.9 X10^3/uL (2.0-7.7); Basophil# 0.08 X10^3/uL; Basophil% 0.6 % (0-1); Eosinophil# 0.04 X10^3/uL; Eosinophils% 0.3 % (0-5); Hemoglobin 15.3 g/dL (13.0-16.5); Lymphocyte # 2.03 X10^3/ul (0.83-4.51); Lymphocyte % 16.2 % (19-41); Mean Corp Hgb Conc 33.3 g/dL (32-36); Mean Corpuscular Hgb 30.5 pg (27.0-32.0); Mean Corpuscular Volume 91.6 fL (80-94); Mean Platelet Vol. 10.9 fl (6.2-12.0); Monocyte# 1.27 X10^3/uL; Monocyte% 10.1 % (0-10); NRBC Flagged by Analyzer 0 % (0-5); Neutrophil # 8.91 X10^3/uL (2.7-7.7); Neutrophil % 71.3 % (47-70); Platelet Count 216 K/mm3 (150-450); RBC Distribution Width CV 12.7 % (11.6-14.6); RBC Distribution Width SD 42.8 fl (35.1-43.9); Red Blood Count 5.02 M/mm3 (4.6-6.2); White Blood Count 12.5 K/mm3 (4.4-11.0)
[2022-10-11] MEDS: Budesonide Respules 0.5 MG/2 ML AMPUL.NEB. INHALATION (06:36)
[2022-10-11 06:46] LABS: Anion Gap 6 (5-15); BUN 24 mg/dL (7-18); Calcium,Total 9.3 mg/dL (8.5-10.1); Chloride 104 mmol/L (98-107); Creatinine, Serum 0.92 mg/dL (0.70-1.30); EST Glomerular Filtration Rate 89 mL/min (>60); Est Glom Filt Rate - Afr Amer 107 mL/min (>60); Estimated Creatinine Clearance 65.12 ml/min; Glucose 162 mg/dL (74-106); Potassium 3.7 mmol/L (3.5-5.1); Sodium Level 137 mmol/L (136-145)
[2022-10-11 07:17] LABS: Bedside Glucose 157 mg/dL (74-106)
--- NOTE | 2022-10-11 08:47 | WOUNDNOTE ---
Was asked to see patient for redness to bilateral lower legs. there are no open areas noted. there is an intact blister noted to the right parker. small amount of fluid remains within the blister. redness is improving. mild edema noted. patient asking that this nurse not apply compression at this time. will monitor, but appears to be improving already. pt denies further needs at this time.
[2022-10-11] MEDS: Carvedilol 3.125 MG TABLET PO (08:52)
[2022-10-11] MEDS: Glimepiride 2 MG Tablet 4 MG PO (08:52)
[2022-10-11] MEDS: predniSONE 20 MG Tablet 40 MG PO (08:54)
--- NOTE | 2022-10-11 10:07 | WOUNDNOTE ---
skin photo: bilateral lower legs
[2022-10-11] MEDS: Losartan Potassium 50 MG Tablet PO (11:02)
[2022-10-11] MEDS: Celecoxib 200 MG Capsule PO (11:02)
[2022-10-11] MEDS: Pantoprazole Sodium 40 MG Tablet PO (11:03)
[2022-10-11] MEDS: dilTIAZem CD 180 MG Capsule PO (11:03)
[2022-10-11] MEDS: Enoxaparin 40 MG/0.4 ML Syringe SC (11:03)
[2022-10-11] MEDS: Furosemide 40 MG/4 ML Vial IV (11:04)
[2022-10-11] MEDS: 0.9% Saline Lock 10 ML Syringe IV (11:08)
[2022-10-11] MEDS: oxyCODONE HCl Cr 10 MG Tablet 20 MG PO (11:08)
[2022-10-11] MEDS: Pregabalin 50 MG Capsule 200 MG PO (11:08)
--- NOTE | 2022-10-11 11:10 | DS.PCM_ITS ---
Providers Date of Admission: 10/09/22 Date of Discharge: 10/11/22 Primary Care Physician: Dr. Juan Miguel Russell MD Consultations 10/09/22 22:06 Consult: Onc/Wound/central sterile technician Routine Comment: Reason For Visit: PNEUMONIA. , COPD EXACERBATION Diagnosis Discharge Diagnosis (1) Pneumonia: Status: Acute Code(s): J18.9 - Pneumonia, unspecified organism (2) COPD exacerbation: Status: Chronic Code(s): J44.1 - Chronic obstructive pulmonary disease with (acute) exacerbation Plan #COmmunity acquired pneumonia * CXR showed prominent pulmonary vasculature with patchy airspace disease in the lower lung bases predominantly on the right which is concerning for acute infiltrate/pneumonia * wbc trended up slightly today to 11.4 * urine for strep and legionella negative. * start on IV ceftriaxone and azithromycin * sputum cultures pending * also on IV lasix * switch to PO prednisone * CTA chest was negative for PE but showed right middle and lower lobe pneumonia * * #Type 2 diabetes mellitus: * On dulaglutide 1.5 mg subcu weekly as well as glimepiride and metformin. * Insulin sliding scale. Accu-Cheks ACHS. #Hypertension: On hydrochlorothiazide and Cardizem. #Hyperlipidemia: On statin #MANISH: On CPAP nightly. He states his setting is [id number] #Nicotine dependence: counseled to quit. Still smokes about 1 pack daily. Will start on nicotine patch 21 mg daily. DVT prophylaxis: Lovenox Code status: full code * Medications at Discharge Home Medications pregabalin 100 mg capsule (Lyrica) 200 mg PO BID NEUROPATHY 12/11/12 diltiazem HCl 180 mg capsule,24 hr,extended release 180 mg PO DAILY 11/20/13 metformin 500 mg tablet 500 mg PO 4X/DAY 11/20/13 atorvastatin 10 mg tablet 10 mg PO QHS 11/03/16 dulaglutide 0.75 mg/0.5 mL subcutaneous pen injector (Trulicity) 3 mg SQ QWEEK DIABETES 11/03/16 glimepiride 2 mg tablet 4 mg PO DAILY 11/03/16 budesonide-formoterol HFA 80 mcg-4.5 mcg/actuation aerosol inhaler 2 puff inhalation BID 10/30/20 insulin aspart U-100 100 unit/mL (3 mL) subcutaneous pen (Novolog FlexPen U-100 Insulin aspart) 2 unit subcut TID 10/30/20 oxycodone myristate 18 mg capsule sprinkle extended release 12hr(DON'T CRUSH) (Xtampza ER) 18 mg PO BID 10/30/20 pantoprazole 40 mg tablet,delayed release 40 mg PO DAILY 10/30/20 acetaminophen 500 mg tablet 1,000 mg PO TID PRN Pain 10/18/21 albuterol sulfate 90 mcg/actuation aerosol inhaler (Ventolin HFA) 1 - 2 puff inhalation Q4H PRN PRN Wheezing #8.5 grams 10/18/21 carvedilol 3.125 mg tablet 3.125 mg PO BID BP 10/09/22 diclofenac potassium 25 mg capsule 25 mg PO BID PAIN 10/09/22 ergocalciferol (vitamin D2) 1,250 mcg (50,000 unit) capsule (Vitamin D2) 50,000 unit PO .MONDAY REPLACEMET 10/09/22 furosemide 40 mg tablet 40 mg PO DAILY #30 tabs 10/11/22 levofloxacin 750 mg tablet 750 mg PO DAILY #7 tabs 10/11/22 losartan 50 mg tablet 50 mg PO DAILY #30 tabs 10/11/22 potassium chloride 20 mEq tablet,extended release(part/cryst) (Klor-Con M) 20 meq PO DAILY #30 tabs 10/11/22 prednisone 20 mg tablet 40 mg (2 x 20 mg) PO BREAKFAST #6 tabs 10/11/22 Hospital Course Operations None Procedures None Summary of Care Provided Minutes Spent on Discharge: 50 Hospital Course: KIEL CARRANZA, is a 62 M with a PMH as outlined who presents via the ED On 10/09/2022 with a complaint of shortness of breath. He is being worked up to get a valve replacement, of the mitral valve it appears, and was supposed to follow up at [facility] tomorrow. He started having worsening cough, increased shortness of breath and swelling of his lower extremities over the last week. He admitted to a cough and generalised weakness. REview of systems was otherwise negative. Vitals in the ED were temp of 96.5F, SC of 107, BP of 144/73 and RR of 22. He was saturating at 94% on room air. CBC showed wbc of 11.1, Hb of 14.7 and platelets of 229. CHemistry was largely unremarkable. Influenza and covid screen was negative. CXR showed prominent pulmonary vasculature with patchy airspace disease concerning for acute infiltrate/pneumonia though superimposed alveolar edema in the cardiogenic setting isnt excluded. BNP was however only 71. He was admitted to be managed for hypoxia due to community acquired pneumonia. CT of the chest done was negative for PE but did show evidence of right-sided pneumonia. He was placed on ceftriaxone and azithromycin. His breathing g radually improved and he felt much better. He was weaned down to 1 L of oxygen. Urine for strep and Legionella were negative. Sputum cultures were still pending. He had walking pulse ox which showed that he did not require any oxygen. He remained stable and was discharged on 10/11/2022. Please follow-up with his primary care doctor within 1 to 2 weeks. He was discharged on p.o. prednisone 40 mg daily for 6 days and also given a prescription for p.o. Levaquin 750 mg daily for 5 days. He is to follow-up with his primary care doctor within 1 to 2 weeks. He was also discharged on furosemide 40 mg daily and his hydrochlorothiazide was discontinued. Patient seen and examined prior to discharge. He felt much better and had no complaints. He had an uneventful night. Review of systems otherwise negative. Labs and vitals reviewed. Medication reviewed and reconciled. Physical Exam Const alert, oriented x3 and no apparent distress Constitutional Narrative: super morbid obesity General Appearance: cooperative, comfortable and well kempt HEENT normocephalic, head/scalp atraumatic, hearing grossly normal bilaterally and mo ist oral mucous membranes Mouth: oral and palatal mucosa normal Eyes PERRL and EOMs intact bilaterally Neck no lymphadenopathy, supple and no JVD Lymph Lymphatic: no lymphadenopathy noted and no lymphedema noted Resp Resp Narrative: diminished breath sounds bibasally, few crackles. On room air. Minimal wheezing bilaterally. On 1L of oxygen by nasal canula. Cardio regular rate, regular rhythm, S1 normal heart sound, S2 normal heart sound and no murmurs GI normal to inspection, nondistended, normoactive bowel sounds, soft to palpation, non-tender and non-distended GI Narrative: obese abdomen Extremity normal capillary refill and no clubbing, cyanosis or edema Skin Skin Narrative: bilateral LE 2+ pitting edema. blister on right parker has ruptured. Neuro oriented x3, CN's II-XII intact bilaterally, moves all extremities, no focal motor deficits and no sensory deficits noted Psych thought process normal, cooperative and affect normal Appearance: appropriate Weight / BMI Weight Weight: 291 lb 14.272 oz Body Mass Index (BMI) 53.4 ABG / Lab / Microbiology Data 10/11/22 05:35 10/11/22 05:35 Laboratory: Laboratory Results - last 24 hr 10/10/22 12:22: POC Glucose 325 H 10/10/22 16:02: POC Glucose 354 H 10/10/22 21:41: POC Glucose 250 H 10/11/22 05:35: WBC 12.5 H, RBC 5.02, Hgb 15.3, Hct 46.0, MCV 91.6, MCH 30.5, MCHC 33.3, RDW Std Deviation 42.8, RDW Coeff of David 12.7, Plt Count 216, MPV 10.9, Immature Gran % (Auto) 1.500 H, Neut % (Auto) 71.3 H, Lymph % (Auto) 16.2 L, Robeson % (Auto) 10.1 H, Eos % (Auto) 0.3, Baso % (Auto) 0.6, Absolute Neuts (auto) 8.9 H, Absolute Lymphs (auto) 2.03, Nucleated RBC % 0, Sodium 137, Potassium 3.7, Chloride 104, Carbon Dioxide 27.0, Anion Gap 6, BUN 24 H, Creatinine 0.92, Estim Creat Clear Calc 65.12, Est GFR (MDRD) Af Amer 107, Est GFR (MDRD) Non-Af 89, BUN/Creatinine Ratio 26.0 H, Glucose 162 H, Calcium 9.3 10/11/22 05:52: POC Glucose 157 H Microbiology: Microbiology 10/09/22 15:46 Nasal Secretion SARS-CoV-2 & FLU Antigen (Rapid) - Final Radiography Diagnostic Testing: Radiology Impression Echocardiogram 10/10/22 00:49 Interpretation Summary The estimated ejection fraction is 55 %. No evidence for diastolic dysfunction. Moderate aortic stenosis. Ordering Physician: Josefina Khan Referring Physician: Juan Miguel Russell Performed By: Shira Leon, NELL, RVT D/C Instructions Discharge Diet: Low fat / Low cholesterol and 2000 mg Sodium Diet Weight Bearing Status: Weight bearing as tolerated Call your doctor if you observe: Fever of 101 or Higher, Shortness of breath, Dizziness, Swelling in the ankles and Chest pain Meaningful Use Info Meaningful Use Diagnoses (Choose all that apply): None applicable Discharge Plan Admission Admit Date/Time: 10/09/22 19:51 Primary Reason for Your Visit: community acquired pneumonia Attending Provider: Shanna Govea Primary Care Provider: Juan Miguel Russell Instructions Patient Instructions: ED Pneumonia (Adult), Pneumonia Discharge Orders/Prescriptions Prescriptions: New prednisone 20 mg Tablet 40 mg PO BREAKFAST Qty: 6 0RF furosemide 40 mg tablet 40 mg PO DAILY Qty: 30 2RF potassium chloride [Klor-Con M20] 20 mEq tablet,ER particles/crystals 20 meq PO DAILY Qty: 30 2RF losartan 50 mg tablet 50 mg PO DAILY Qty: 30 2RF levofloxacin 750 mg tablet 750 mg PO DAILY Qty: 7 0RF Continued pregabalin [Lyrica] 100 MG capsule 200 mg PO BID metformin 500 MG tablet 500 mg PO 4X/DAY Patient Comments: DIABETES diltiazem HCl 180 MG capsule,extended release 24 hr 180 mg PO DAILY Patient Comments: HEART atorvastatin 10 MG tablet 10 mg PO QHS glimepiride 2 MG tablet 4 mg PO DAILY Trulicity 0.75 MG/0.5 ML pen injector 3 mg SQ QWEEK insulin aspart U-100 [Novolog FlexPen U-100 Insulin] 100 unit/mL (3 mL) Insulin Pen 2 unit SUBCUT TID Rx Instructions: 2 units per every 50 after 200 BG budesonide-formoterol 80-4.5 mcg/actuation Hfa Aerosol Inhaler 2 puff INHALATION BID Xtampza ER 18 mg Cap,Sprinkl,Er12hr(Dont Crush) 18 mg PO BID pantoprazole 40 mg Tablet,Delayed Release (Dr/Ec) 40 mg PO DAILY acetaminophen 500 MG tablet 1,000 mg PO TID PRN (Reason: Pain) albuterol sulfate [Ventolin HFA] 90 mcg/actuation HFA aerosol inhaler 1 - 2 puff inhalation Q4H PRN PRN (Reason: Wheezing) Qty: 8.5 0RF ergocalciferol (vitamin D2) [Vitamin D2] 1,250 mcg (50,000 unit) capsule 50,000 unit PO .MONDAY diclofenac potassium 25 mg capsule 25 mg PO BID Patient Comments: TAKE 1 CAPSULE BY MOUTH TWICE DAILY carvedilol 3.125 mg tablet 3.125 mg PO BID Discontinued hydrochlorothiazide 25 MG tablet 25 mg PO DAILY Patient Comments: WATER PILL losartan-hydrochlorothiazide 50-12.5 mg tablet 1 tab PO DAILY Referrals / Follow Up: Madhu Smith MD [Med Staff - Active Staff] - 10/24/22 10:00 am (see to establish care for moderate aortic stenosis as seen per echo) Juan Miguel Russell MD [Primary Care Provider] - 10/25/22 2:00 pm Disposition Disposition (needs filled in before D/C Order can be placed): Home, Self Care Charges/Coding Visit Charges Inpatient E&M: 93203 Disch Hosp >30min
--- NOTE | 2022-10-11 11:34 | CASEMGMT ---
THOMAS CM into pt room, pt nurse present as well as a visitor. Pt did not qualify for home oxygen. Discussed HHC for therapy or nursing. Pt states he will just come back to the hospital if he feels this way again. Made pt aware the hope is that nursing could monitor and provide education to help keep pt at home as independent as possible without returning to the hospital. Pt declined. Discussed the Pt Link program with patient, he declines this as well. Pt aware that should he get home and change his mind, he can notify his pcp. Pt verbalizes understanding.
--- NOTE | 2022-10-11 15:25 | PHA.DC.MC.R ---
Pharmacy [facility] has performed discharge medication reconciliation and counseling for this patient. The patient was counseled on the following discharge medications and changes in medications for homegoing were reviewed. 1. LASIX 2. LOSARTAN 3. K-DUR 4. PREDNISONE The Reason for Use, instructions for use, and potential side effects were reviewed for all new medications. The patient's questions regarding all of their medications were answered. The patient was able to verbally demonstrate an understanding of their discharge medications. The patient's discharge medication list was reviewed for discrepancies and discrepancies were resolved. Patient was counselled by Scarlet Montano, Trinh candidate Medications at Discharge Home Medications pregabalin 100 mg capsule (Lyrica) 200 mg PO BID NEUROPATHY 12/11/12 diltiazem HCl 180 mg capsule,24 hr,extended release 180 mg PO DAILY 11/20/13 metformin 500 mg tablet 500 mg PO 4X/DAY 11/20/13 atorvastatin 10 mg tablet 10 mg PO QHS 11/03/16 dulaglutide 0.75 mg/0.5 mL subcutaneous pen injector (Trulicity) 3 mg SQ QWEEK DIABETES 11/03/16 glimepiride 2 mg tablet 4 mg PO DAILY 11/03/16 budesonide-formoterol HFA 80 mcg-4.5 mcg/actuation aerosol inhaler 2 puff inhalation BID 10/30/20 insulin aspart U-100 100 unit/mL (3 mL) subcutaneous pen (Novolog FlexPen U-100 Insulin aspart) 2 unit subcut TID 10/30/20 oxycodone myristate 18 mg capsule sprinkle extended release 12hr(DON'T CRUSH) (Xtampza ER) 18 mg PO BID 10/30/20 pantoprazole 40 mg tablet,delayed release 40 mg PO DAILY 10/30/20 acetaminophen 500 mg tablet 1,000 mg PO TID PRN Pain 10/18/21 albuterol sulfate 90 mcg/actuation aerosol inhaler (Ventolin HFA) 1 - 2 puff inhalation Q4H PRN PRN Wheezing #8.5 grams 10/18/21 carvedilol 3.125 mg tablet 3.125 mg PO BID BP 10/09/22 diclofenac potassium 25 mg capsule 25 mg PO BID PAIN 10/09/22 ergocalciferol (vitamin D2) 1,250 mcg (50,000 unit) capsule (Vitamin D2) 50,000 unit PO .MONDAY REPLACEMET 10/09/22 furosemide 40 mg tablet 40 mg PO DAILY #30 tabs 10/11/22 losartan 50 mg tablet 50 mg PO DAILY #30 tabs 10/11/22 potassium chloride 20 mEq tablet,extended release(part/cryst) (Klor-Con M) 20 meq PO DAILY #30 tabs 10/11/22 prednisone 20 mg tablet 40 mg (2 x 20 mg) PO BREAKFAST #6 tabs 10/11/22
[2022-10-11 16:26] LABS: Bedside Glucose 366 mg/dL (74-106)
== END 2022-10-11 13:37 | disposition home or self-care (01) | DRG 194 ==
LOC: ED 20:20 → MS3 20:35
PROVIDERS: Internal Medicine; Nurse Practitioner; Admitting Provider Student in an Organized Health Care Education/Training Program; Emergency Provider Emergency Medicine; PCP Family Medicine; Visit Provider Student in an Organized Health Care Education/Training Program
DX: J18.9 Pneumonia, unspecified organism (principal); J44.0 Chronic obstructive pulmonary disease with (acute) lower respiratory infection; Z68.43 Body mass index [BMI] 50.0-59.9, adult; J44.1 Chronic obstructive pulmonary disease with (acute) exacerbation; E11.40 Type 2 diabetes mellitus with diabetic neuropathy, unspecified; E66.01 Morbid (severe) obesity due to excess calories; I10 Essential (primary) hypertension; G47.33 Obstructive sleep apnea (adult) (pediatric); K21.9 Gastro-esophageal reflux disease without esophagitis; F17.210 Nicotine dependence, cigarettes, uncomplicated; I87.8 Other specified disorders of veins; E78.5 Hyperlipidemia, unspecified; Z66 Do not resuscitate; Z79.84 Long term (current) use of oral hypoglycemic drugs; G89.29 Other chronic pain
CPT/HCPCS: 36415; 71046; 71275; 80048; 82962; 83880; 84484; 85025; 87428; 93005; 93306; 94640; 97110; 97162; 97166; 97530; 97535; 99285; 99406; J7040; Q9957; Q9967; A4216; C8929; J1940

== ENCOUNTER → 2023-02-28 | Outpatient (CLI) | payer MEDICARE, MEDICAID, SELFPAY ==
[2023-02-28 14:46] LABS: Amphetamine Urine VISTA NEGATIVE (<1000 ng/mL); Barbiturate Urine VISTA NEGATIVE (< 200 ng/mL); Benzodiazepine Urine VISTA NEGATIVE (< 200 ng/mL); Cocaine Urine VISTA NEGATIVE (< 300 ng/mL); Ecstacy Urine VISTA NEGATIVE (< 500 ng/mL); Methadone Urine VISTA NEGATIVE (< 300 ng/mL); PCP Urine VISTA NEGATIVE (< 25 ng/mL); THC Urine VISTA NEGATIVE (< 50 ng/mL); Vista UDS pH Range 6
--- OUTSIDE RECORDS SUMMARY | 2023-02-28 16:30 | XMS RPT_ITS | CCD ---
Author Name Unknown Address [address] [place] [address] Organization [facility] Care Team Providers Care Lead Net Software Developer Name Role Phone Juan Miguel Arthur MD Primary Care Provider BENJAMIN CALHOUN Attending Unavailable JERSON, JUAN MIGUEL Brewer Primary Care Unavailable JERSON, JUAN MIGUEL Brewer Primary Care Unavailable HIRO, LISA Referring Unavailable JERSON, JUAN MIGUEL Brewer Primary Care Unavailable BENJAMIN CALHOUN Attending Unavailable JERSON, JUAN MIGUEL Brewer Referring Unavailable JERSON, JUAN MIGUEL Brewer Primary Care Unavailable JERSON, JUAN MIGUEL Brewer Attending Unavailable JERSON, JUAN MIGUEL Brewer Primary Care Unavailable JERSON, JUAN MIGUEL Brewer Referring Unavailable KATHY COLBERT Attending Unavailable JERSON, JUAN MIGUEL Brewer Primary Care Unavailable JERSON, JUAN MIGUEL Brewer Referring Unavailable JERSON, JUAN MIGUEL Brewer Primary Care Unavailable FABIÁN VALENTE Referring Unavailable JERSON, JUAN MIGUEL Brewer Primary Care Unavailable AMAURI JO Referring Unavailable JERSON, JUAN MIGUEL Brewer Primary Care Unavailable VICENTA POWERS Referring Unavailable VICENTA POWERS Attending Unavailable JERSON, JUAN MIGUEL Brewer Primary Care Unavailable JERSON, JUAN MIGUEL Brewer Primary Care Unavailable JERSON, JUAN MIGUEL Brewer Primary Care Unavailable JERSON, JUAN MIGUEL Brewer Attending Unavailable ANGELOCK, LISA Referring Unavailable JERSON, JUAN MIGUEL Brewer Primary Care Unavailable JERSON, JUAN MIGUEL Brewer Primary Care Unavailable ANGELA ORR Attending Unavailable ANGELOCK, LISA Referring Unavailable JERSON, JUAN MIGUEL Brewer Primary Care Unavailable JERSON, JUAN MIGUEL Brewer Primary Care Unavailable ANGELA ORR Attending Unavailable JERSON, JUAN MIGUEL Brewer Referring Unavailable JERSON, JUAN MIGUEL Brewer Primary Care Unavailable ANGELOCK, LISA Referring Unavailable JERSON, JUAN MIGUEL Brewer Primary Care Unavailable JERSON, JUAN MIGUEL Brewer Primary Care Unavailable ANGELA ORR Referring Unavailable HIRO, LISA Referring Unavailable JERSON, JUAN MIGUEL Brewer Primary Care Unavailable JERSON, JUAN MIGUEL Brewer Primary Care Unavailable CIRILO BACON Attending Unavailab le JERSON, JUAN MIGUEL Brewer Primary Care Unavailable CIRILO BACON Referring Unavailab ESTELLE Naqvi Attending Unavailable JUAN MIGUEL ARTHUR Primary Care Unavailable ESTELLE CARDENAS Referring Unavailable JUAN MIGUEL ARTHUR Primary Care Unavailable JERSON, JUAN MIGUEL Brewer Primary Care Unavailable ANGELA ORR Attending Unavailable ESTELLE CARDENAS Referring Unavailable JUAN MIGUEL ARTHUR Primary Care Unavailable JUAN MIGUEL ARTHUR Primary Care Unavailable JUAN MIGUEL ARTHUR Referring Unavailable JERSONJUAN MIGUEL Vital Primary Care Unavailable JERSON, JUAN MIGUEL Brewer Referring Unavailable NENA FITZGERALD Attending Unavailable JERSON, JUAN MIGUEL Brewer Primary Care Unavailable JERSON, JUAN MIGUEL Brewer Referring Unavailable VICENTA POWERS Attending Unavailable JUAN MIGUEL ARTHUR Primary Care Unavailable JERSNO, JUAN MIGUEL Brewer Referring Unavailable AMAURI JO Attending Unavailable JERSON, JUAN MIGUEL Brewer Primary Care Unavailable JERSON, JUAN MIGUEL Brewer Referring Unavailable JERSON, JUAN MIGUEL Brewer Primary Care Unavailable ANGELA ORR Referring Unavailable KATHY COLBERT Referring Unavailable JERSONJUAN MIGUEL Primary Care Unavailable NENA FITZGERALD Attending Unavailable JERSONJUAN MIGUEL Primary Care Unavailable JERSONJUAN MIGUEL Attending Unavailable JERSON, JUAN MIGUEL Brewer Primary Care Unavailable Allergies Allergy Classification Reported Allergen(s) Allergy Type Date of Onset Reaction(s) Facility (20 sources) Lisinopril; Translations: [LISINOPRIL] Drug Allergy 12-01-2017 Other: See Comments [facility] Work Phone: (8 sources) Penicillins; Translations: [PENICILLINS] Drug Allergy 10-29-2010 [facility] Work Phone: (20 sources) Penicillins Drug Allergy 10-29-2010 [facility] Work Phone: (20 sources) fluticasone; Translations: [FLUTICASONE PROPIONATE] Drug Allergy 10-18-2021 Other: See Comments [facility] Medications Current Medications Medication Drug Class(es) Dates Sig (Normalized) Sig (Original) carvedilol 3.125 mg oral tablet (20 sources) alpha-Adrenergic Alfonso, beta-Adrenergic Alfonso Start: 05-20-2022 End: 05-20-2023 take 1 tablet by mouth twice daily carvedilol (COREG) 3.125 mg tablet Indications: Primary hypertension Take 1 tablet by mouth twice daily. 60 tablet 11 05/20/2022 05/20/2023 Active Completed/Discontinued Medications Medication Drug Class(es) Dates Sig (Normalized) Sig (Original) acetaminophen 325 mg / oxyCODONE hydrochloride 5 mg oral tablet (20 sources) Opioid Agonist Start: 05-29-2017 End: 10-25-2022 take 1 tablet by mouth three times daily oxyCODONE-acetamino phen (PERCOCET) 5-325 mg tablet Take 1 tablet by mouth three times daily. 0 05/29/2017 10/25/2022 Discontinued Problems Active Problems Problem Classification Problem Date Documented Date Episodic/Chronic Blindness and vision defects (1 source) Eye / vision finding; Translations: [Unspecified visual disturbance] 10-25-2022 Episodic Cardiac and circulatory congenital anomalies (20 sources) Bicuspid aortic valve; Translations: [Congenital insufficiency of aortic valve] Onset: 11-09-2012 11-09-2012 Chronic Cataract (4 sources) Bilateral age-related cataract; Translations: [Unspecified age-related cataract] Onset: 05-31-2022 Chronic Chronic obstructive pulmonary disease and bronchiectasis (20 sources) Chronic obstructive lung disease; Translations: [Chronic obstructive pulmonary disease, unspecified] Onset: 12-07-2012 Chronic Congestive heart failure; nonhypertensive (1 source) Chronic diastolic heart failure; Translations: [Chronic diastolic (congestive) heart failure] Chronic Diabetes mellitus with complications (20 sources) Type 2 diabetes mellitus; Translations: [Type 2 diabetes mellitus with diabetic neuropathy, unspecified] Onset: 11-09-2012 03-24-2020 Chronic Diabetes mellitus without complication (8 sources) Type 2 diabetes mellitus without complication; Translations: [Type 2 diabetes mellitus without complications] Onset: 05-31-2022 Chronic Diseases of white blood cells (1 source) Elevated white blood cell count, unspecified; Translations: [Leukocytosis, unspecified type] Onset: 11-09-2022 Chronic Disorders of lipid metabolism (20 sources) Hyperlipidemia; Translations: [Hyperlipidemia, unspecified] Onset: 11-09-2012 11-09-2012 Chronic Esophageal disorders (20 sources) Gastroesophageal reflux disease without esophagitis; Translations: [Gastro-esophageal reflux disease without esophagitis] Onset: 10-23-2021 Chronic Essential hypertension (20 sources) Hypertensive disorder; Translations: [Essential (primary) hypertension] Onset: 11-09-2012 11-09-2012 Chronic Glaucoma (3 sources) Preglaucoma, unspecified, bilateral; Translations: [Preglaucoma, unspecified] Onset: 05-31-2022 Chronic Headache; including migraine (1 source) Headache; Translations: [Headache, unspecified headache type] 10-25-2022 Episodic Heart valve disorders (20 sources) Aortic stenosis, non-rheumatic ; Translations: [Nonrheumatic aortic (valve) stenosis] Onset: 08-10-2018 08-10-2018 Chronic Immunizations and screening for infectious disease (5 sources) Patient encounter status; Translations: [Encounter for immunization] Episodic Malaise and fatigue (1 source) Fatigue; Translations: [Other fatigue] Episodic Mood disorders (20 sources) Bipolar I disorder; Translations: [Bipolar disorder, unspecified] Onset: 11-09-2012 11-09-2012 Chronic Nutritional deficiencies (1 source) Vitamin D deficiency; Translations: [Vitamin D deficiency, unspecified] Chronic Open wounds of extremities (3 sources) Open wound of lower limb; Translations: [Unspecified open wound, right lower leg, subsequent encounter] 10-25-2022 Episodic Other aftercare (1 source) Drug therapy finding; Translations: [Other residential (current) drug therapy] Episodic Other and ill-defined heart disease (20 sources) Left ventricular hypertrophy; Translations: [Cardiomegaly] 11-30-2012 Chronic Other and ill-defined heart disease (1 source) Cardiomegaly; Translations: [LVH (left ventricular hypertrophy)] Onset: 10-23-2021 Chronic Other circulatory disease (1 source) Abnormal peripheral pulse; Translations: [Other specified symptoms and signs involving the circulatory and respiratory systems] 12-05-2022 Episodic Other circulatory disease (1 source) Other specified symptoms and signs involving the circulatory and respiratory systems; Translations: [Diminished pulses in lower extremity] Onset: 12-22-2022 Episodic Other connective tissue disease (1 source) Cramp in lower limb; Translations: [Cramp and spasm] 10-25-2022 Episodic Other diseases of veins and lymphatics (1 source) Vascular insufficiency; Translations: [Venous insufficiency (chronic) (peripheral)] 12-05-2022 Episodic Other diseases of veins and lymphatics (1 source) Venous insufficiency (chronic) (peripheral); Translations: [Venous insufficiency] Onset: 12-05-2022 Episodic Other endocrine disorders (20 sources) Male hypogonadism; Translations: [Testicular hypofunction] Onset: 01-04-2013 01-04-2013 Chronic Other eye disorders (2 sources) Disorder of lacrimal gland; Translations: [Dry eye syndrome of bilateral lacrimal glands] Episodic Other inflammatory condition of skin (1 source) Erythema; Translations: [Erythematous condition, unspecified] 11-30-2022 Episodic Other injuries and conditions due to external causes (1 source) Blister; Translations: [Other injury of unspecified body region, initial encounter] 12-05-2022 Episodic Other injuries and conditions due to external causes (1 source) Other injury of unspecified body region, initial encounter; Translations: [Blister] Onset: 12-05-2022 Episodic Other lower respiratory disease (3 sources) Dyspnea; Translations: [Dyspnea, unspecified] Episodic Other nervous system disorders (20 sources) Ulnar neuropathy of left arm; Translations: [Lesion of ulnar nerve, left upper limb] Onset: 01-07-2013 01-07-2013 Chronic Other nutritional; endocrine; and metabolic disorders (20 sources) Body mass index 40+ - severely obese; Translations: [Morbid (severe) obesity due to excess calories] Onset: 11-09-2012 03-24-2020 Chronic Other nutritional; endocrine; and metabolic disorders (1 source) Morbid (severe) obesity due to excess calories; Translations: [Morbid obesity with BMI of 50.0-59.9, adult ([facility])] Onset: 03-24-2020 Chronic Other nutritional; endocrine; and metabolic disorders (1 source) Body mass index (BMI) 50.0-59.9, adult; Translations: [Morbid obesity with BMI of 50.0-59.9, adult ([facility])] Onset: 03-24-2020 Chronic Other skin disorders (1 source) Ingrowing toenail; Translations: [Ingrowing nail] 12-05-2022 Episodic Peripheral and visceral atherosclerosis (12 sources) Peripheral vascular disease; Translations: [Peripheral vascular disease, unspecified] Onset: 12-06-2022 12-06-2022 Chronic Residual codes; unclassified (20 sources) Sleep apnea; Translations: [Sleep apnea, unspecified] Onset: 11-09-2012 11-09-2012 Chronic Residual codes; unclassified (20 sources) Desaturation of blood; Translations: [Idiopathic sleep related nonobstructive alveolar hypoventilation] Onset: 10-23-2021 Chronic Residual codes; unclassified (1 source) Obstructive sleep apnea syndrome; Translations: [Obstructive sleep apnea (adult) (pediatric)] Chronic Residual codes; unclassified (2 sources) Sleep apnea, unspecified; Translations: [Sleep apnea, unspecified type] Onset: 10-23-2021 Chronic Residual codes; unclassified (1 source) Edema; Translations: [Edema, unspecified] Episodic Residual codes; unclassified (2 sources) Tobacco user; Translations: [Tobacco use] Episodic Residual codes; unclassified (2 sources) Bilateral lower limb edema; Translations: [Localized edema] Episodic Spondylosis; intervertebral disc disorders; other back problems (20 sources) Degeneration of lumbar intervertebral disc; Translations: [Other intervertebral disc degeneration, lumbar region] Onset: 11-09-2012 Chronic Superficial injury; contusion (3 sources) Blister of foot; Translations: [Blister (nonthermal), right foot, initial encounter] Onset: 11-30-2022 11-30-2022 Episodic Unclassified (1 source) Valvular Heart Disease Onset: 11-07-2022 Past or Other Problems Problem Classification Problem Date Documented Da te Episodic/Chronic Fluid and electrolyte disorders (1 source) Hyperkalemia; Translations: [Hyperkalemia] Onset: 11-09-2022 Episodic Genitourinary symptoms and ill-defined conditions (20 sources) Microalbuminuria; Translations: [Proteinuria, unspecified] Onset: 08-03-2018 08-03-2018 Episodic Other aftercare (2 sources) long term care social worker (current) use of insulin; Translations: [Controlled type 2 diabetes mellitus with diabetic neuropathy, with long-term current use of insulin (HCC)] Onset: 03-24-2020 Episodic Other connective tissue disease (20 sources) Tendonitis of left wrist; Translations: [Other enthesopathies, not elsewhere classified] Onset: 05-14-2013 05-14-2013 Episodic Other connective tissue disease (1 source) Cramp and spasm; Translations: [Leg cramps] Onset: 10-25-2022 Episodic Other eye disorders (1 source) Dry eye syndrome of bilateral lacrimal glands; Translations: [Dry eye syndrome of bilateral lacrimal glands] Onset: 05-31-2022 Episodic Other lower respiratory disease (20 sources) Restrictive lung disease; Translations: [Other disorders of lung] Onset: 11-12-2010 11-12-2010 Episodic Other non-traumatic joint disorders (1 source) Pain in left hip; Translations: [Left hip pain] Onset: 07-04-2022 Episodic Other screening for suspected conditions (not mental disorders or infectious disease) (2 sources) Encounter for screening for malignant neoplasm of respiratory organs; Translations: [Encounter for screening for lung cancer] Onset: 06-28-2022 Episodic Pneumonia (except that caused by tuberculosis or sexually transmitted disease) (2 sources) Bacterial pneumonia; Translations: [Unspecified bacterial pneumonia] Onset: 10-25-2022 10-25-2022 Episodic Residual codes; unclassified (1 source) Tobacco use; Translations: [Tobacco use current] Onset: 07-14-2022 Episodic Skin and subcutaneous tissue infections (7 sources) Abscess of lower limb; Translations: [Cutaneous abscess of right lower limb] Onset: 10-27-2022 10-25-2022 Episodic Spondylosis; intervertebral disc disorders; other back problems (3 sources) Chronic back pain ; Translations: [Dorsalgia, unspecified] Onset: 09-28-2022 Episodic Results Test Name Value Interpretation Reference Range Facil ity Vital Signs Date Time Vital Sign Value Performing Clinician Faci lity 12-19-2022 13:53-0500 Body height 154.9 cm Benjamin Calhoun MD Work Phone: [facility] 12-19-2022 13:53-0500 Body weight 128.46 kg Benjamin Calhoun MD Work Phone: [facility] 12-19-2022 13:53-0500 Diastolic blood pressure 80 mm[Hg] Benjamin Calhoun MD Work Phone: [facility] 12-19-2022 13:53-0500 Heart rate 78 /min Benjamin Calhoun MD Work Phone: [facility] 12-19-2022 13:53-0500 Respiratory rate 16 /min Benjamin Calhoun MD Work Phone: [facility] 12-19-2022 13:53-0500 SaO2% (BldA) [Mass fraction] 97 % Benjamin Calhoun MD Work Phone: [facility] 12-19-2022 13:53-0500 Systolic blood pressure 144 mm[Hg] Benjamin Calhoun MD Work Phone: [facility] 11-30-2022 15:15-0400 Body temperature 99 [degF] Cirilo Bacon MD Work Phone: [facility] 11-30-2022 15:15-0400 Diastolic blood pressure 80 mm[Hg] Cirilo Bacon MD Work Phone: [facility] 11-30-2022 15:15-0400 Systolic blood pressure 128 mm[Hg] Cirilo Bacon MD Work Phone: [facility] 11-30-2022 14:28-0400 Body weight 126.1 kg Cirilo Bacon MD Work Phone: [facility] 11-30-2022 14:28-0400 Heart rate 82 /min Cirilo Bacon MD Work Phone: [facility] 11-30-2022 14:28-0400 Respiratory rate 16 /min Cirilo Bacon MD Work Phone: [facility] 11-17-2022 14:31-0400 Body height 156.3 cm Pulm Wstr Work Phone: [facility] 11-17-2022 14:31-0400 Body weight 126.1 kg Pulm Wstr Work Phone: [facility] 10-27-2022 15:02-0400 Body height 154.9 cm Nena Lobo [place] PA-C Work Phone: [facility] 10-27-2022 15:02-0400 Body temperature 97.5 [degF] Nena Lobo [place] PA-C Work Phone: [facility] 10-27-2022 15:02-0400 Body weight 125.83 kg Nena Lobo [place] PA-C Work Phone: [facility] 10-27-2022 15:02-0400 Diastolic blood pressure 80 mm[Hg] Nena Sylvie PA-C Work Phone: [facility] 10-27-2022 15:02-0400 Heart rate 97 /min Nena Chpapellf PA-C Work Phone: [facility] 10-27-2022 15:02-0400 SaO2% (BldA) [Mass fraction] 96 % Nena Lobo [place] PA-C Work Phone: [facility] 10-27-2022 15:02-0400 Systolic blood pressure 132 mm[Hg] Nena Chappellf PA-C Work Phone: [facility] 10-25-2022 14:11-0400 Body height 154.9 cm Juan Miguel Arthur MD Work Phone: [facility] 10-25-2022 14:11-0400 Body weight 125.56 kg Juan Miguel Arthur MD Work Phone: [facility] 10-25-2022 14:11-0400 Diastolic blood pressure 60 mm[Hg] Juan Miguel Arthur MD Work Phone: [facility] 10-25-2022 14:11-0400 Heart rate 95 /min Juan Miguel Arthur MD Work Phone: [facility] 10-25-2022 14:11-0400 SaO2% (BldA) [Mass fraction] 95 % Juan Miguel Arthur MD Work Phone: [facility] 10-25-2022 14:11-0400 Systolic blood pressure 116 mm[Hg] Juan Miguel Arthur MD Work Phone: [facility] 09-28-2022 15:08-0400 Body weight 131.09 kg Juan Miguel Arthur MD Work Phone: [facility] 09-28-2022 15:08-0400 Diastolic blood pressure 82 mm[Hg] Juan Miguel Arthur MD Work Phone: [facility] 09-28-2022 15:08-0400 Heart rate 98 /min Juan Miguel Arthur MD Work Phone: [facility] 09-28-2022 15:08-0400 SaO2% (BldA) [Mass fraction] 92 % Juan Miguel Arthur MD Work Phone: [facility] 09-28-2022 15:08-0400 Systolic blood pressure 142 mm[Hg] Juan Miguel Arthur MD Work Phone: [facility] 06-28-2022 15:19-0400 Body weight 132.9 kg Angela Haagen SANDFILL OPERATOR.RESERVOIR CARETAKER Work Phone: [facility] 06-28-2022 15:19-0400 Diastolic blood pressure 72 mm[Hg] Angela Haagen SANDFILL OPERATOR.RESERVOIR CARETAKER Work Phone: [facility] 06-28-2022 15:19-0400 Heart rate 88 /min Angela Haagen SANDFILL OPERATOR.RESERVOIR CARETAKER Work Phone: [facility] 06-28-2022 15:19-0400 Respiratory rate 20 /min Angela Haagen SANDFILL OPERATOR.RESERVOIR CARETAKER Work Phone: [facility] 06-28-2022 15:19-0400 SaO2% (BldA) [Mass fraction] 97 % Angela Haagen SANDFILL OPERATOR.RESERVOIR CARETAKER Work Phone: [facility] 06-28-2022 15:19-0400 Systolic blood pressure 136 mm[Hg] Angela Haagen SANDFILL OPERATOR.RESERVOIR CARETAKER Work Phone: [facility] 05-23-2022 10:26-0400 Body weight 131.54 kg Kathy Bradleyely SANDFILL OPERATOR.RESERVOIR CARETAKER Work Phone: [facility] 05-23-2022 10:26-0400 Diastolic blood pressure 80 mm[Hg] Kathy Gemma SANDFILL OPERATOR.RESERVOIR CARETAKER Work Phone: [facility] 05-23-2022 10:26-0400 Heart rate 88 /min Kathy Gemma SANDFILL OPERATOR.RESERVOIR CARETAKER Work Phone: [facility] 05-23-2022 10:26-0400 Systolic blood pressure 145 mm[Hg] Kathy Gemma SANDFILL OPERATOR.RESERVOIR CARETAKER Work Phone: [facility] 05-20-2022 14:21-0400 Body weight 132 kg Juan Miguel Arthur MD Work Phone: [facility] 05-20-2022 14:21-0400 Diastolic blood pressure 82 mm[Hg] Juan Miguel Arthur MD Work Phone: [facility] 05-20-2022 14:21-0400 Heart rate 90 /min Juan Miguel Arthur MD Work Phone: [facility] 05-20-2022 14:21-0400 SaO2% (BldA) [Mass fraction] 95 % Juan Miguel Arthur MD Work Phone: [facility] 05-20-2022 14:21-0400 Systolic blood pressure 170 mm[Hg] Juan Miguel Arthur MD Work Phone: [facility] 10-22-2021 14:19-0400 Body weight 128.82 kg NA Livingston PA-C Work Phone: [facility] 10-22-2021 14:19-0400 Diastolic blood pressure 70 mm[Hg] NA Livingston PA-C Work Phone: [facility] 10-22-2021 14:19-0400 Heart rate 107 /min NA Livingston PA-C Work Phone: [facility] 10-22-2021 14:19-0400 Respiratory rate 18 /min NA Livingston PA-C Work Phone: [facility] 10-22-2021 14:19-0400 SaO2% (BldA) [Mass fraction] 94 % NA Livingston PA-C Work Phone: [facility] 10-22-2021 14:19-0400 Systolic blood pressure 136 mm[Hg] NA Livingston PA-C Work Phone: [facility] Encounters Encounter Date Encounter Type Care Provider Facility Start: 02-27-2023 End: 02-28-2023 ambulatory JUAN MIGUEL Brewer JERSON Facility:[facility] Start: 02-27-2023 ambulatory JUAN MIGUEL ARTHUR Facility :[facility] Start: 01-27-2023 Refill Juan Miguel Arthur MD Work Phone: [facility] Procedures Date Procedure Procedure Detail Performing Clinician Start: 11-17-2022 Co diffusing capacity Scott Foster APRN.RESERVOIR CARETAKER Work Phone: Start: 09-30-2022 Echocardiography KIZZY ARTHUR Start: 09-30-2022 Echo tthrc r-t 2d w/ wom-mode compl spec&colr d Kathy Colbert SANDFILL OPERATOR.RESERVOIR CARETAKER Work Phone: Start: 07-14-2022 CT LUNG SCREEN WO IVCON Amauri Arroyopster SANDFILL OPERATOR.RESERVOIR CARETAKER Work Phone: Start: 05-31-2022 End: 05-31-2022 Computerized ophthalmic imaging retina Vicenta Powers OD Work Phone: Start: 05-20-2022 PFIZER-BIONTECH COVI D-19 BIVALENT BOOSTER VACCINE, AGE 12+ YR Juan Miguel Arthur MD Work Phone: Start: 11-11-2015 Adult depression scr eening assessment Juan Miguel Arthur MD Work Phone: Start: 02-13-2007 Colonoscopy Juan Miguel Jackson MD Work Phone: Plan of Treatment Date Care Activity Detail Author Start: 05-03-2026 PROSTATE CANCER SCREENING DISCUSSION PROSTATE CANCER SCREENING DISCUSSION [facility] Start: 05-03-2026 Prostate specific antigen measurement Prostate Cancer Screening Discussion [facility] Start: 12-01-2023 Annual PCP Team Health Services Administrator gabo Disease Visit Annual PCP Team Chronic Disease Visit [facility] Start: 11-10-2023 Annual PCP Team Health Services Administrator gabo Disease Visit Annual PCP Team Chronic Disease Visit [facility] Start: 10-26-2023 Annual PCP Team Health Services Administrator gabo Disease Visit Annual PCP Team Chronic Disease Visit [facility] Start: 10-26-2023 BP Controlled (<130/80) BP Controlle d (<130/80) [facility] Start: 10-26-2023 Hepatitis B surface antibody level LDL Cholesterol [facility] Start: 09-29-2023 ANNUAL PCP TEAM CUT PLUG PACKER GABO DISEASE VISIT ANNUAL PCP TEAM CHRONIC DISEASE VISIT [facility] Start: 07-16-2023 End: 08-14-2023 CT LUNG SCREEN WO IVCON CT LUNG SCREEN WO IVCON Radiology Routine Encounter for screening for lung cancer Tobacco use current Expected: 07/16/2023, Expires: 08/14/2023 [facility] Work Phone: Immunizations Immunization Date Immunization Notes Care Provider Fa pepper 05-20-2022 pneumococcal Conjuga te, unspecified formulation Juan Miguel Arthur MD Work Phone: [facility] Work Phone: 05-20-2022 COVID-19 booster vaccine, age 12+ yr, bivalent (PFIZER-BIONTSuja Juice) Juan Miguel Arthur MD Work Phone: [facility] 05-20-2022 pneumococcal (PCV20) vaccine, 20 valent (PREVNAR 20) Juan Miguel Arthur MD Work Phone: [facility] 11-06-2017 influenza, injectabl e, quadrivalent, contains preservative Juan Miguel Arthur MD Work Phone: [facility] 11-06-2017 influenza virus vacc ine, unspecified formulation Juan Miguel Arthur MD Work Phone: [facility] 11-11-2016 influenza, injectabl e, quadrivalent, contains preservative Juan Miguel Arthur MD Work Phone: [facility] 11-11-2015 influenza, injectabl e, quadrivalent, contains preservative Juan Miguel Arthur MD Work Phone: [facility] 11-26-2013 influenza, seasonal, injectable Juan Miguel Arthur MD Work Phone: [facility] 11-30-2012 influenza virus vacc ine, unspecified formulation Juan Miguel Arthur MD Work Phone: [facility] 11-20-2012 pneumococcal polysaccharide vaccine, 23 valent Juan Miguel Arthur MD Work Phone: [facility] 11-01-2010 pneumococcal polysaccharide vaccine, 23 valent Juan Miguel Arthur MD Work Phone: [facility] Work Phone: Payers Date Payer Category Payer Medicare HUMANA MEDICARE HUMANA GOLD PLUS [id number] 2022-Present [phone] [address] [address] [place] [address] O [id number] 2022 Private Health Insurance [id number] 2022 Medicaid [id number] 2022 Medicaid [id number] 2019 Medicaid [employer] A[employer] MEDICAID [id number] 2019-Present [phone] [address] [place] [address] Medicaid [id number] 2019 Medicaid [id number] 2019 Unknown ANTHEM BLUE CROS S AND BLUE SHIELD ANTHEM MEDIBLUE HMO [id number] 2019-Present [phone] [address] [place] [id number] O [id number] 2019 Unknown ANTHEM BLUE CROS S AND BLUE SHIELD ANTHEM MEDIBLUE O [id number] 2019-Present [phone] [address] [place] [id number] HMO [id number] 2019 Unknown [id number] Social History Date Type Detail Facility Start: 12-17-2010 End: 11-07-2022 Tobacco smoking status NHIS Smokes tobacco daily [facility] History of tobacco use Cigarette Smoker [facility] Start: 12-17-2010 End: 06-17-2022 Cigarettes smoked current (pack per day) - Reported 0.75 [facility] Work Phone: Start: 12-17-2010 End: 11-07-2022 Tobacco use and exposure Smokeless tobacco non-user [facility] Start: 12-13-2020 End: 12-19-2022 Alcohol intake Current drinker of alcohol (finding) [facility] Start: 04-27-2020 History SDOH Alcohol Comment Rarely. 2 beers a year [facility] Start: 01-02-2019 End: 10-18-2021 Tobacco Comment less than a pack/day. [facility] Start: 1960 Sex Assigned At Not on file [facility] Start: 04-19-2021 End: 10-22-2021 Exposure to SARS-CoV-2 (event) Not sure [facility] Start: 06-17-2022 End: 09-28-2022 Tobacco use panel [facility] Work Phone: Adult Depression Screening Assessment 1 [facility] Work Phone: Medical Equipment Procedure Code Equipment Code Equipment Origin al Text Equipment Identifier Dates Start: 03-26-2020 End: 04-13-2021 Clinical Notes 11-30-2012 to 02-27-2023 Telephone Encounter - Janki Vale RN - 01/27/2023 4:03 PM ESTTelephone Encounter - Bebeto Haro - 01/09/2023 2:16 PM ESTTelephone Encounter - Ya Orona - 01/09/2023 2:06 PM EST Note Date & Type Note Facility 02-27-[address] [facility] 01-27-2023 Miscellaneous Notes Patient has been identified by name and date of : Yes Pharmacy phones for refill(s): Requested Prescriptions Pending Prescriptions Disp Refills atorvastatin (LIPITOR) 10 mg tablet 30 tablet 5 Sig: TAKE 1 TABLET BY MOUTH AT BEDTIME *FOR CHOLESTEROL dilTIAZem CD (CARDIZEM CD, CARTIA XT) 180 mg 24 hr capsule 30 capsule 5 Sig: Take 1 capsule by mouth once daily. Date of last office visit in primary care: 11/30/2022 Date of next office visit in primary care: 02/21/2023 Janki Vale RN. documented in this encounter [facility] 01-09-2023 Miscellaneous Notes ESSIE 11/30/22 NOV 02/21/23 Patient has been identified by name and date of : Yes Requested Prescriptions Pending Prescriptions Disp Refills insulin glargine (LANTUS SOLOSTAR U-100 INSULIN) 100 unit/mL (3 mL) 6 Each 1 Sig: Inject 20 Units subcutaneously daily at bedtime. losartan (COZAAR) 50 mg tablet Sig: Take 1 tablet by mouth every afternoon. RX INSTRUCTIONS: Patient aware RX will be sent to pharmacy. No need to notify patient. Ya Granger documented in this encounter [facility] 12-29-2022 Miscellaneous Notes Pt did not have a 3 month f/u scheduled. Called pt and set up appt for 02/21/23 at [address] Arthur. Patient has been identified by name and date of : Yes, Provider Dr. Arthur Date 12/29/22 Time 1430 Pharmacy phones for refill(s): Requested Prescriptions Pending Prescriptions Disp Refills pregabalin (LYRICA) 100 mg capsule 120 capsule 2 Sig: Take two in the morning, one in the afternoon, and one in the evening. (total of 4 capsules daily). Date of last office visit in primary care: 11/30/2022 Date of next office visit in primary care: 02/21/23 Last 2 Encounter Wt Readings: Date: Wt: 12/19/2022 128.5 kg (283 lb 3.2 oz) 11/30/2022 126.1 kg (278 lb) Previous labs/tests for medication: Liver Function: ALT (U/L) Date Value 11/30/2022 19 06/24/2020 24 AST (U/L) Date Value 11/30/2022 21 06/24/2020 30 Please advise. Thank you. Bhavani Juan, THOMAS. documented in this encounter [facility] 12-27-2022 Miscellaneous Notes MULTI DISCIPLINARY HIGH RISK CARDIAC / AVR TEAM Members present: Dr. Donaldson, Dr. Calzada, Dr. Parra, Dr. Calhoun, Dr. Rosa, Dr. Izquierdo, Dr. Valente, Dr. Monroy, Malick Foster, PRICILA, RESERVOIR CARETAKER, Fanny Her APRN, RESERVOIR CARETAKER, Gill Strickland PA, Dario Reis APRN, RESERVOIR CARETAKER, Dario Colbert, TODD, DARRYL Keene, Dillon العلي PA-C. Presenting Physician: Dr. Calhoun PATIENT NAME: Kiel Catherine DATE: December 27, 2022 Outcome: Kiel Catherine 's history and imaging were reviewed by the physicians in attendance. The collaborative recommendation would be Dr. Calhoun to discuss case with Dr. Shlomo Alcocer at [facility], given high surgical risk albeit surgery is optimally best option over TAVR. These recommendations were communicated to the patient by myself. Lisa Foster APRN.TODD 12/27/22 documented in this encounter [facility] 12-27-2022 Miscellaneous Notes Called patient to notify of below information. Provided daughter with information. Patient daughter states she will have patient call in and scheduled when he wakes up from [facility]. Adenike Gloria LPN Please call patient to inform him that his circulation studies are decreased. I still feel most of his issue with the leg wound is swelling and that light compression will be of benefit. He can follow-up with me for the wounds. If he wants, we can also set follow-up with vascular surgery for lower extremity pad. I do see he recently saw cardiology who also made vascular surgery aware Estelle Cardenas DPM 2nd attempt. Called patient with results below. No response. Left VM. Adenike Gloria LPN Called patient with results below. No response. Left VM. Adenike Gloria LPN Please call patient to inform him that xrays do not show any bony injury Estelle Cardenas DPM documented in this encounter [facility] 12-19-2022 Note HNO ID: [id number] Author: Benjamin Calhoun MD Service: ? Author Type: Physician Type: Progress Notes Filed: 12/20/2022 12:29 PM Note Text: PRIMARY CARE PHYSICIAN: Juan Miguel Arthur [id number] [place] [address] Subjective Chief Complaint Patient presents with: Valvular Heart Disease: Kiel is here to review testing HISTORY OF PRESENT ILLNESS: Mr. Catherine is a 62 year old male current smoker 1 pack/day with past medical history as listed including morbid obesity with BMI of 52, DM type II, COPD, coronary artery disease, bipolar 1 disorder, hypertension, hyperlipidemia, MANISH on CPAP, and pain management for back pain with known bicuspid aortic stenosis initially followed by Dr. Montgomery in [place] and transitioned to care in [place] with our cardiology team. He had a recent TTE on 09/30/2022, and though the images are poor due to body habitus he did have findings of severe aortic stenosis with peak gradient of 76, mean gradient 39 DI 0.23, and aortic valve area of 1.0. He was recently admitted to [facility] for a blister on the anterior right lower extremity over the tibia which had popped causing an open wound, and TTE done at the hospital demonstrated findings more consistent with moderate aortic stenosis. When I saw him in the office on 11/09/2022, the patient was complaining of shortness of breath with exertion and some lightheadedness and dizziness. Right and left heart catheterization demonstrated normal coronaries with moderate pulmonary hypertension, and TAVR scans were obtained which demonstrated a bicuspid, Alec type 0, aortic valve with severe calcification with a calcium score of 3300. 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 The patient also saw a potato chip sorter who debrided his noninfected right tibial wound and ordered PVRs, which are pending. Review of Systems Constitutional: Negative for chills, fever, malaise/fatigue and weight loss. HENT: Negative for sore throat. Eyes: Negative for blurred vision and double vision. Respiratory: Positive for shortness of breath. Negative for cough, hemoptysis, wheezing and stridor. Cardiovascular: Positive for leg swelling. Negative for chest pain and palpitations. Gastrointestinal: Negative for abdominal pain, melena, nausea and vomiting. Genitourinary: Negative for flank pain and hematuria. Musculoskeletal: Negative for myalgias. Skin: Negative for rash. Neurological: Positive for dizziness. Negative for seizures, loss of consciousness and weakness. Endo/Heme/Allergies: Does not bruise/bleed easily. Objective PAST MEDICAL HISTORY Diagnosis Date Anxiety Aortic valve stenosis, nonrheumatic Atrial septal defect and mitral stenosis Bicuspid aortic valve Bipolar 1 disorder ([facility]) Chronic obstructive pulmonary disease (COPD) ([facility]) Coronary artery disease Degenerative disc disease sees Dr. Sellers Diabetic neuropathy ([facility]) DM (diabetes mellitus) ([facility]) HTN (hypertension) Hyperkalemia Hyperlipidemia Hypogonadism male LVH (left ventricular hypertrophy) Morbid obesity ([facility]) MANISH on CPAP Pain management Dr. Sellers PAST SURGICAL HISTORY Procedure Laterality Date BACK SURGERY HX fusion- lumbar CARPAL TUNNEL both PAST SURGICAL HISTORY OF left shouder surgery PAST SURGICAL HISTORY OF nasal passages clearing for sleep apnea PAST SURGICAL HISTORY OF 02/13/1981 ORIF right ankle PAST SURGICAL HISTORY OF 04/03/2013 left ulnar nerve decompression FAMILY HISTORY Problem Relation Age of Onset Diabetes Father 2011 with pneumonia other (Dementia) Father Heart Mother CABG 4. Diabetes Sister Ischemic Heart Disease Brother other (Myocardial infarc) Brother Fatal MD No Ocular Disease No Family History Social History Tobacco Use Smoking status: Every Day Packs/day: 1.00 Years: 45.00 Additional pack years: 0.00 Total pack years: 45.00 Types: Cigarettes Smokeless tobacco: Never Vaping Use Vaping Use: Never used Substance Use Topics Alcohol use: Yes Comment: Rarely. 2 beers a year Drug use: No ALLERGIES Allergen Reactions Flonase [Fluticason* Other: See Comments Nose bleeds Lisinopril Other: See Comments Hyperkalemia Penicillins Rash Physical Examination Vitals:BP 144/80 Pulse 78 Resp 16 Ht 5' 1 (1.55m) Wt 283 lb 3.2 oz (128.5kg) SpO2 97% BMI 53.54 kg/(m2). BP w/Orthostatic Vitals Date and Time Orthostatic BP Orthostatic Pulse BP Pulse BP Position BP Site BP Cuff Size 12/19/22 135 -- -- 144/80 78 Sitting Left Arm -- Peak Flow Date and Time PF Resp 12/19/22 1353 -- 16 Last 2 Encounter Wt Readings: Date: Wt: 12/19/2022 283 lb 3.2 oz (128.5 kg) 11/30/2022 278 lb (126.1 kg) Physical Exam HENT: Head: Normocephalic (more content not included)... [facility] 12-19-2022 History of Presen t illness Narrative PRIMARY CARE PHYSICIAN: Juan Miguel Arthur [address] [place] [address] Subjective Chief Complaint Patient presents with: Valvular Heart Disease: Kiel is here to review testing HISTORY OF PRESENT ILLNESS: Mr. Catherine is a 62 year old male current smoker 1 pack/day with past medical history as listed including morbid obesity with BMI of 52, DM type II, COPD, coronary artery disease, bipolar 1 disorder, hypertension, hyperlipidemia, MANISH on CPAP, and pain management for back pain with known bicuspid aortic stenosis initially followed by Dr. Montgomery in [place] and transitioned to care in [place] with our cardiology team. He had a recent TTE on 09/30/2022, and though the images are poor due to body habitus he did have findings of severe aortic stenosis with peak gradient of 76, mean gradient 39 DI 0.23, and aortic valve area of 1.0. He was recently admitted to [facility] for a blister on the anterior right lower extremity over the tibia which had popped causing an open wound, and TTE done at the hospital demonstrated findings more consistent with moderate aortic stenosis. When I saw him in the office on 11/09/2022, the patient was complaining of shortness of breath with exertion and some lightheadedness and dizziness. Right and left heart catheterization demonstrated normal coronaries with moderate pulmonary hypertension, and TAVR scans were obtained which demonstrated a bicuspid, Alec type 0, aortic valve with severe calcification with a calcium score of 3300. 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 The patient also saw a potato chip sorter who debrided his noninfected right tibial wound and ordered PVRs, which are pending. Review of Systems Constitutional: Negative for chills, fever, malaise/fatigue and weight loss. HENT: Negative for sore throat. Eyes: Negative for blurred vision and double vision. Respiratory: Positive for shortness of breath. Negative for cough, hemoptysis, wheezing and stridor. Cardiovascular: Positive for leg swelling. Negative for chest pain and palpitations. Gastrointestinal: Negative for abdominal pain, melena, nausea and vomiting. Genitourinary: Negative for flank pain and hematuria. Musculoskeletal: Negative for myalgias. Skin: Negative for rash. Neurological: Positive for dizziness. Negative for seizures, loss of consciousness and weakness. Endo/Heme/Allergies: Does not bruise/bleed easily. Objective PAST MEDICAL HISTORY Diagnosis Date Anxiety Aortic valve stenosis, nonrheumatic Atrial septal defect and mitral stenosis Bicuspid aortic valve Bipolar 1 disorder ([facility]) Chronic obstructive pulmonary disease (COPD) ([facility]) Coronary artery disease Degenerative disc disease sees Dr. Sellers Diabetic neuropathy ([facility]) DM (diabetes mellitus) ([facility]) HTN (hypertension) Hyperkalemia Hyperlipidemia Hypogonadism male LVH (left ventricular hypertrophy) Morbid obesity ([facility]) MANISH on CPAP Pain management Dr. Sellers PAST SURGICAL HISTORY Procedure Laterality Date BACK SURGERY HX fusion- lumbar CARPAL TUNNEL both PAST SURGICAL HISTORY OF left shouder surgery PAST SURGICAL HISTORY OF nasal passages clearing for sleep apnea PAST SURGICAL HISTORY OF 02/13/1981 ORIF right ankle PAST SURGICAL HISTORY OF 04/03/2013 left ulnar nerve decompression FAMILY HISTORY Problem Relation Age of Onset Diabetes Father 2011 with pneumonia other (Dementia) Father Heart Mother CABG 4. Diabetes Sister Ischemic Heart Disease Brother other (Myocardial infarc) Brother Fatal MD No Ocular Disease No Family History Social History Tobacco Use Smoking status: Every Day Packs/day: 1.00 Years: 45.00 Additional pack years: 0.00 Total pack years: 45.00 Types: Cigarettes Smokeless tobacco: Never Vaping Use Vaping Use: Never used Substance Use Topics Alcohol use: Yes Comment: Rarely. 2 beers a year Drug use: No ALLERGIES Allergen Reactions Flonase [Fluticason* Other: See Comments Nose bleeds Lisinopril Other: See Comments Hyperkalemia Penicillins Rash Physical Examination Vitals:BP 144/80 Pulse 78 Resp 16 Ht 5' 1 (1.55m) Wt 283 lb 3.2 oz (128.5kg) SpO2 97% BMI 53.54 kg/(m^2). BP w/Orthostatic Vitals Date and Time Orthostatic BP Orthostatic Pulse BP Pulse BP Position BP Site BP Cuff Size 12/19/22 1353 -- -- 144/80 78 Sitting Left Arm -- Peak Flow Date and Time PF Resp 12/19/22 1353 -- 16 Last 2 Encounter Wt Readings: Date: Wt: 12/19/2022 283 lb 3.2 oz (128.5 kg) 11/30/2022 278 lb (126.1 kg) Physical Exam HENT: Head: Normocephalic and atraumatic. Eyes: Pupils: Pupils are equal, round, and reactive to light. Neck: Thyroid: No thyromegaly. Trachea: No tracheal deviation. Cardiovascular: Rate and Rhythm: Normal rate and regular rhythm. Heart sounds: Murmur heard. Comments: Systolic murmur with absent S2 Pulmonary: Effort: Pulmonary effort is normal. No accessory muscle usage or respiratory distress. Breath sounds: Normal breath sounds. Abdominal: General: There is no distension. Palpations: Abdomen is soft. Tenderness: There is no abdominal tenderness. Musculoskeletal: General: No deformity. Normal range of motion. Cervical back: Normal range of motion and neck supple. Skin: General: Skin is warm and dry. Neurological: Mental Status: He is alert and oriented to person, place, and time. Cranial Nerves: No cranial nerve deficit. Medications Current Outpatient Medications Medication Sig Dispense Refill budesonide-formoterol (SYMBICORT) 80-4.5 mcg/actuation inhaler Inhale 2 Puffs as instructed two times a day. 1 Each 3 furosemide (LASIX) 40 mg tablet Take 1 tablet by mouth once daily. 30 tablet 11 furosemide (LASIX) 40 mg tablet Take 1 additional tablet of 40 mg lasix PO daily in the morning for total of 40 mg BID x 4 days. 4 tablet 0 insulin glargine (LANTUS SOLOSTAR U-100 INSULIN) 100 unit/mL (3 mL) Inject 20 Units subcutaneously daily at bedtime. 6 Each 1 dulaglutide (TRULICITY) 3 mg/0.5 mL pen injector Inject 3 mg subcutaneously one time a week. 2 mL 11 losartan (COZAAR) 50 mg tablet Take 1 tablet by mouth every afternoon. famotidine (PEPCID) 20 mg tablet Take 1 tablet by mouth daily at bedtime. 30 tablet 5 clindamycin (CLEOCIN) 300 mg capsule Take 1 capsule by mouth four times daily. 40 capsule 0 pregabalin (LYRICA) 100 mg capsule Take two in the morning, one in the afternoon, and one in the evening. (total of 4 capsules daily). 120 capsule 2 flash glucose sensor (FREESTYLE JOHN 2 SENSOR) kit Change sensor every 14 days for testing blood sugars 4 times daily or more DX: E11.40 Insulin: YES 6 Each 3 atorvastatin (LIPITOR) 10 mg tablet TAKE 1 TABLET BY MOUTH AT BEDTIME *FOR CHOLESTEROL 30 tablet 5 dilTIAZem CD (CARDIZEM CD, CARTIA XT) 180 mg 24 hr capsule Take 1 capsule by mouth once daily. [address] (PROTONIX) 40 mg tablet Take 1 tablet by mouth daily before breakfast. Take on empty stomach, 1/2 hr before meal. 30 tablet 11 metFORMIN (GLUCOPHAGE) 500 mg tablet Take 1 tablet by mouth four times daily. 120 tablet 11 glimepiride (AMARYL) 4 mg tablet Take 1 tablet by mouth daily with breakfast. 30 tablet 11 PEG 400-propylene glycol (SYSTANE ULTRA) 0.4-0.3 % ophthalmic solution Use 1 Drop in both eyes three times daily. 15 mL 3 propylene glycoL (SYSTANE BALANCE) 0.6 % drop Use 1 Drop in both eyes daily at bedtime. 10 mL 3 carvedilol (COREG) 3.125 mg tablet Take 1 tablet by mouth twice daily. 60 tablet 11 ergocalciferol 50,000 unit capsule (VITAMIN D2, DRISDOL) Take 1 capsule by mouth one time a week. 4 capsule 11 insulin needles, DISPOSABLE, (PEN NEEDLE) 31 gauge x 5/16 Use one needle per dose. 4per day. 100 Each 11 flash glucose scanning reader (FREESTYLE JOHN 2 READER) DMII, insulin requiring. Testing 3-5 times q day 1 Each 0 insulin aspart U-100 (NOVOLOG FLEXPEN U-100 INSULIN) 100 unit/mL (3 mL) Per sliding scale: <200 no coverage, 201-250-2 units, 251-300-4 units, 301-350-6 units, 351-400-8 units, 400-450-10 units, call above 450. 5 Pen 11 blood sugar diagnostic (FREESTYLE LITE STRIPS) test strip TEST BLOOD SUGAR 1-2 TIMES DAILY 100 Strip 11 albuterol HFA (PROVENTIL HFA, VENTOLIN HFA) 90 mcg/actuation inhaler Inhale 2 Puffs as instructed every 4 hours as needed for wheezing/shortness of breath. 1 Each 0 oxycodone myristate (XTAMPZA ER ORAL) Take 18 mg by mouth twice daily. Compression Knee Highs KNEE HIGH COMPRESSION STOCKINGS 30-40 MM. DX: EDEMA 1 Each 3 Blood[place]Gl[place] M[place] [facility] [place] 1 kit 1 Each 0 aspirin 325 mg tablet Take 325 mg by mouth one time only. (Patient not taking: Reported on 12/19/2022) nicotine (NICODERM CQ) 21 mg/24 hr Apply 1 Patch as directed every 24 hours. APPLY ONE(1) PATCH DAILY. (Patient not taking: Reported on 11/07/2022) 28 Patch 0 nicotine (NICODERM CQ) 14 mg/24 hr Apply 1 Patch as directed every 24 hours. (Patient not taking: Reported on 11/07/2022) 28 Patch 0 nicotine (NICODERM CQ) 7 mg/24 hr Apply 1 Patch as directed every 24 hours. (Patient not taking: Reported on 11/07/2022) 14 Patch 1 lancets (FREESTYLE LANCETS) 28 gauge TEST BLOOD SUGAR 1-2 TIMES DAILY (Patient not taking: Reported on 12/19/2022) 100 Each 11 Current Facility-Administered Medications Medication Dose Route Frequency Provider Last Rate Last Admin perflutren lipid microspheres 1.3 mL in NaCl (PF) 0.9% 10 mL injection (DEFINITY) INTRAVENOUS DIRECTED PRN Kathy Colbert SANDFILL OPERATOR.RESERVOIR CARETAKER sodium chloride 0.9 % (flush) 10 mL (BD POSIFLUSH) 10 mL INTRAVENOUS DIRECTED PRN Kathy Colbert SANDFILL OPERATOR.RESERVOIR CARETAKER perflutren lipid microspheres 1.3 mL in NaCl (PF) 0.9% 10 mL injection (DEFINITY) INTRAVENOUS DIRECTED PRN Scott Livingston PA-C sodium chloride 0.9 % (flush) 10 mL (BD POSIFLUSH) 10 mL INTRAVENOUS DIRECTED PRN Scott Livingston PA-C TTE on 09/30/2022: CONCLUSIONS: - Technically difficult exam due to suboptimal positioning, body habitus and SOB/heavy breathing. - Exam indication: Routine surveillance of moderate or severe valvular stenosis (>1yr) - The left ventricle is normal in size. There is moderate concentric left ventricular hypertrophy. Left ventricular systolic function is normal. Grade I left ventricular diastolic dysfunction. - There is severe aortic valve stenosis caused by calcified valve. AV area is 1.00 cm (0.42 cm /m ) by continuity, VTI. The peak gradient is 76 mmHg, the mean gradient is 39 mmHg and the dimensionless valve index is 0.23. Prior pk/mn gradients of 50/35 mmHg. - Exam was compared with the prior CC echocardiographic exam performed on 08/10/2018. Aortic stenosis is in the severe range in today's study. TAVR scans on 11/24/2022: IMPRESSION: 1. Bicuspid, Alec type 0, aortic valve , with severe leaflet calcification. The aortic valve calcium score is calculated at 3300 Agatston units. 2. Aortic annular measurements are as follows: diameter: 3.5 cm, mean diameter 3.2 cm, circumference: 102 cm, cross-sectional area: 790 mm2 3. There is moderate dilation of the Aortic sinus and mid ascending aorta with a maximal diameter of 4.5cm. No acute aortic pathology. 4. There is a moderate to severe stenosis of the right common femoral artery secondary to calcific atherosclerosis. The minimal luminal caliber throughout = approximately 0.3 cm. There are other milder pelvic arterial stenoses. 5. Nonvascular findings as described with significant limitation of imaging secondary to artifact. These findings include a possible area of nodular wall thickening in the distal colon near the anorectal junction. Further evaluation with direct visualization may be useful. The cardiac portion of the study was interpreted by from the Cardiology Department, and the noncardiac portion was interpreted by Dr. Dario Hayden from Radiology Cardiac catheterization on 11/29/2022: Coronary Anatomy: Right Dominant Injection Site(s): Coronary Artery LMT: _ The LMT is normal. LAD: _ The LAD has mild diffuse disease. LCX: _ The Circumflex has mild diffuse disease. RAMUS: _ Ramus Status: Not Applicable. RCA: _ The RCA has mild diffuse disease. + + IMPRESSION/PLAN + + Impression:1. Mild coronary artery disease . Right heart cath: Moderate pulmonary hypertension RVSP 37 mmHg. Elevated PWP. At this point, the procedure was terminated. All diagnostic wires and catheters were removed. Recommended Treatment: Medical Therapy. Plan: Medical therapy PFTs on 11/17/2022 demonstrated an FEV1 of 80% predicted and DLCO of 69% predicted. Assessment and Plan: Mr. Catherine is a 62 year old male current smoker 1 pack/day with past medical history as listed including morbid obesity with BMI of 52, DM type II, COPD, coronary artery disease, bipolar 1 disorder, hypertension, hyperlipidemia, MANISH on CPAP, and pain management for back pain with known bicuspid aortic stenosis initially followed by Dr. Montgomery in [place] and transitioned to care in [place] with our cardiology team. He had a recent TTE on 09/30/2022, and though the images are poor due to body habitus he did have findings of severe aortic stenosis with peak gradient of 76, mean gradient 39 DI 0.23, and aortic valve area of 1.0. He was recently admitted to [facility] for a blister on the anterior right lower extremity over the tibia which had popped causing an open wound, and TTE done at the hospital demonstrated findings more consistent with moderate aortic stenosis. When I saw him in the office on 11/09/2022, the patient was complaining of shortness of breath with exertion and some lightheadedness and dizziness. Right and left heart catheterization demonstrated normal coronaries with moderate pulmonary hypertension, and TAVR scans were obtained which demonstrated a bicuspid, Alec type 0, aortic valve with severe calcification with a calcium score of 3300. 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 The patient also saw a potato chip sorter who debrided his noninfected right tibial wound and ordered PVRs, which are pending. I recommendations are as follows: -Follow PVRs ordered by podiatry. Brief discussion with vascular surgery regarding the right lower extremity wound, does appear to be related to venous stasis but will need further evaluation as above. -We will order bilateral carotid ultrasounds given patient's dizziness and calcification seen on the aortic arch and branch vessels -We will present at our Monday multidisciplinary heart team conference to get treatment consensus before moving forward with surgery If surgery is recommended, we will proceed with scheduling and PAT appointment 1 week prior to aortic valve replacement. Benjamin Calhoun MD Cardiothoracic Surgery 12/19/2022 documented in this encounter [facility] 12-09-2022 Miscellaneous Notes Phoned pt, he states he never received the message to increase the lasix to twice daily x 4 days until yesterday when he picked rx from pharmacy. Pt states he did take 2 tablets yesterday and will plan to take 2 tablets for the next 3 days, resuming previous dose on day 5 unless advised otherwise. Bebeto Haro LPN Yes, he is to resume previous dose Patient is confused on the dosing for the Furosemide. He still has the other prescription that he was taking 40 mg twice daily for 4 days, he just started that dosing yesterday. Asking if he should complete that then start back to taking 40 mg once daily. He has no more refills at the pharmacy for furosemide once daily. Patient has been identified by name and date of : Yes Patient phones for refill(s): Requested Prescriptions Pending Prescriptions Disp Refills furosemide (LASIX) 40 mg tablet Sig: Take 1 tablet by mouth every afternoon. Date of last office visit in primary care: 11/30/2022 Date of next office visit in primary care: Visit date not found Last 2 Encounter Wt Readings: Date: Wt: 11/30/2022 126.1 kg (278 lb) 11/17/2022 126.1 kg (278 lb) Previous labs/tests for medication: Not applicable Please advise. Thank you. Alexandra Osborn LPN. documented in this encounter [facility] 12-09-2022 Miscellaneous Notes Patient has been identified by name and date of : Pharmacy phones for refill(s): Requested Prescriptions Pending Prescriptions Disp Refills budesonide-formoterol (SYMBICORT) 80-4.5 mcg/actuation inhaler 1 Each 3 Sig: Inhale 2 Puffs as instructed two times a day. Date of last office visit in primary care: 11/09/2022 Date of next office visit in primary care: No future appt scheduled Last 2 Encounter Wt Readings: Date: Wt: 11/30/2022 126.1 kg (278 lb) 11/17/2022 126.1 kg (278 lb) Previous labs/tests for medication: Not applicable Please advise. Thank you. Fely Cohn LPN. documented in this encounter [facility] 12-05-[address] [facility] 12-05-[address] [facility] 12-05-[address] [facility] 12-05-2022 Instructions Estelle Cardenas - 12/05/2022 3:45 PM EDT For blister: Apply betadine to foot to help dry out Apply tubigrip to right foot and leg to help with swelling For wound of right leg Apply bactroban as you are currently doing Apply adaptic (nonadherent) Apply tubrip for swelling reduction Will check circulation studies Will check xray Diabetes Foot Care Instructions When you have diabetes, proper foot care is very important. Poor foot care may lead to amputation of a foot or leg. As a person with diabetes, you are more vulnerable to foot problems, because diabetes can damage your nerves and reduce blood flow to your feet. Here are some diabetes foot care tips to follow: Wash and Dry Your Feet Daily Use mild soaps Use warm water Pat your skin dry; do not rub. Thoroughly dry your feet. After washing, use lotion on your feet to prevent cracking. Do not put lotion between your toes. Examine Your Feet Each Day Check the tops and bottoms of your feet. Have someone else look at your feet if you cannot see them. Check for dry, cracked skin. Look for blisters, cuts, scratches, or other sores. Check for redness, increased warmth, or tenderness when touching any area of your feet. Check for ingrown toenails, corns, and calluses. If you get a blister or sore from your shoes, do not pop it. Apply a bandage and wear a different pair of shoes. Take Care of Your Toenails Cut toenails after bathing, when they are soft. Cut toenails straight across and smooth with a nail file. Avoid cutting into the corners of toes. Do not cut cuticles. If you have neuropathy (or decreased sensation in your feet) a potato chip sorter should always cut your toenails. Be Careful When Exercising Walk and exercise in comfortable shoes. Do not exercise when you have open sores on your feet. Protect Your Feet With Shoes and Socks Never go barefoot. Always protect your feet by wearing shoes or hard-soled slippers or footwear. Avoid shoes with high heels and pointed toes. Avoid shoes that expose your toes or heels (such as open-toed shoes or sandals). These types of shoes increase your risk for injury and potential infections. Try on new footwear with the type of socks you usually wear. Do not wear new shoes for more than an hour at a time. Change your socks daily. Look and feel inside your shoes before putting them on to make sure there are no foreign objects or rough areas. Avoid tight socks. Wear natural-fiber socks (cotton, wool, or a cotton-wool blend). Wear special shoes if your health care provider recommends them. Wear shoes/boots that will protect your feet from various weather conditions (cold, moisture, etc.). Make sure your shoes fit properly. If you have neuropathy (nerve damage), you may not notice that your shoes are too tight. Perform the footwear test described below. Footwear Test Use this simple test to see if your shoes fit correctly: Stand on a piece of paper. (Make sure you are standing and not sitting, because your foot changes shape when you stand.) Trace the outline of your foot. Trace the outline of your shoe. Compare the tracings: Is the shoe too narrow? Is your foot crammed into the shoe? The shoe should be at least 1/2 inch longer than your longest toe and as wide as your foot. Proper Shoe Choices The following types of shoes are best for people with diabetes Closed toes and heels Leather uppers without a seam inside At least 1/2 inch extra space at the end of your longest toe Inside of shoe should be soft with no rough areas Outer sole should be made of stiff material Shoes should be at least as wide as your feet Tips for Foot Care in Diabetes Don't wait to treat a minor foot problem if you have diabetes. Follow your health care provider's guidelines and first aid guidelines. Report foot injuries and infections to your health care provider immediately. Check water temperature with your elbow, not your foot. Do not use a heating pad on your feet. Do not cross your legs. Do not self-treat your corns, calluses, or other foot problems. Go to your health care provider or potato chip sorter to treat these conditions. documented in this encounter [facility] 12-05-2022 History of Presen t illness Narrative Consultation requested by Dr. Bacon for an opinion regarding ulceration of right leg. Blister of right foot. My final recommendations will be communicated back to the requesting physician by way of shared Medical record or letter to requesting physician via US mail. Initial Podiatric Office Visit: Chief Complaint: This 62 year old male who presents with chief complaint:blister of right foot and blister of right leg HPI Patient presents to clinic for evaluation of right foot and right leg. He states he has blister of the right foot that has been present for about one week. He states the blister just popped today. Patient has wound to his right leg that has been present for more than 3-4 weeks. He is currently applying bactroban to his foot and leg. PAIN EVALUATION No data found in the last 1 encounters. Hemoglobin A1C (%) Date Value 09/28/2022 7.0 05/20/2022 7.4 10/27/2021 10.1 05/03/2021 10.3 06/24/2020 9.6 03/20/2020 9.4 04/10/2019 7.8 06/25/2018 6.8 12/01/2017 8.9 PCP: Juan Miguel Arthur MD PAST MEDICAL HISTORY Diagnosis Date Anxiety Atrial septal defect and mitral stenosis Bicuspid aortic valve Bipolar 1 disorder ([facility]) Chronic obstructive pulmonary disease (COPD) ([facility]) Coronary artery disease Degenerative disc disease sees Dr. Sellers Diabetic neuropathy ([facility]) DM (diabetes mellitus) ([facility]) HTN (hypertension) Hyperkalemia Hyperlipidemia Hypogonadism male LVH (left ventricular hypertrophy) Morbid obesity ([facility]) MANISH on CPAP Pain management Dr. Sellers Current Outpatient Medications Medication Sig aspirin 325 mg tablet Take 325 mg by mouth one time only. insulin glargine (LANTUS SOLOSTAR U-100 INSULIN) 100 unit/mL (3 mL) Inject 20 Units subcutaneously daily at bedtime. dulaglutide (TRULICITY) 3 mg/0.5 mL pen injector Inject 3 mg subcutaneously one time a week. furosemide (LASIX) 40 mg tablet Take 1 tablet by mouth every afternoon. losartan (COZAAR) 50 mg tablet Take 1 tablet by mouth every afternoon. famotidine (PEPCID) 20 mg tablet Take 1 tablet by mouth daily at bedtime. pregabalin (LYRICA) 100 mg capsule Take two in the morning, one in the afternoon, and one in the evening. (total of 4 capsules daily). flash glucose sensor (FREESTYLE JOHN 2 SENSOR) kit Change sensor every 14 days for testing blood sugars 4 times daily or more DX: E11.40 Insulin: YES atorvastatin (LIPITOR) 10 mg tablet TAKE 1 TABLET BY MOUTH AT BEDTIME *FOR CHOLESTEROL dilTIAZem CD (CARDIZEM CD, CARTIA XT) 180 mg 24 hr capsule Take 1 capsule by mouth once daily. budesonide-formoterol (SYMBICORT) 80-4.5 mcg/actuation inhaler Inhale 2 Puffs as instructed twice daily. pantoprazole DR (PROTONIX) 40 mg tablet Take 1 tablet by mouth daily before breakfast. Take on empty stomach, 1/2 hr before meal. metFORMIN (GLUCOPHAGE) 500 mg tablet Take 1 tablet by mouth four times daily. glimepiride (AMARYL) 4 mg tablet Take 1 tablet by mouth daily with breakfast. PEG 400-propylene glycol (SYSTANE ULTRA) 0.4-0.3 % ophthalmic solution Use 1 Drop in both eyes three times daily. propylene glycoL (SYSTANE BALANCE) 0.6 % drop Use 1 Drop in both eyes daily at bedtime. carvedilol (COREG) 3.125 mg tablet Take 1 tablet by mouth twice daily. ergocalciferol 50,000 unit capsule (VITAMIN D2, DRISDOL) Take 1 capsule by mouth one time a week. insulin needles, DISPOSABLE, (PEN NEEDLE) 31 gauge x 06/28 Use one needle per dose. 4per day. flash glucose scanning reader (FREESTYLE JOHN 2 READER) DMII, insulin requiring. Testing 3-5 times q day insulin aspart U-100 (NOVOLOG FLEXPEN U-100 INSULIN) 100 unit/mL (3 mL) Per sliding scale: <200 no coverage, 201-250-2 units, 251-300-4 units, 301-350-6 units, 351-400-8 units, 400-450-10 units, call above 450. blood sugar diagnostic (FREESTYLE LITE STRIPS) test strip TEST BLOOD SUGAR 1-2 TIMES DAILY lancets (FREESTYLE LANCETS) 28 gauge TEST BLOOD SUGAR 1-2 TIMES DAILY albuterol HFA (PROVENTIL HFA, VENTOLIN HFA) 90 mcg/actuation inhaler Inhale 2 Puffs as instructed every 4 hours as needed for wheezing/shortness of breath. oxycodone myristate (XTAMPZA ER ORAL) Take 18 mg by mouth twice daily. Compression Knee Highs KNEE HIGH COMPRESSION STOCKINGS 30-40 MM. DX: EDEMA Blood[place]Gl[place] Meter [facility] [place] 1 kit furosemide (LASIX) 40 mg tablet Take 1 additional tablet of 40 mg lasix PO daily in the morning for total of 40 mg BID x 4 days. (Patient not taking: Reported on 12/05/2022) clindamycin (CLEOCIN) 300 mg capsule Take 1 capsule by mouth four times daily. (Patient not taking: Reported on 12/05/2022) nicotine (NICODERM CQ) 21 mg/24 hr Apply 1 Patch as directed every 24 hours. APPLY ONE(1) PATCH DAILY. (Patient not taking: Reported on 11/07/2022) nicotine (NICODERM CQ) 14 mg/24 hr Apply 1 Patch as directed every 24 hours. (Patient not taking: Reported on 11/07/2022) nicotine (NICODERM CQ) 7 mg/24 hr Apply 1 Patch as directed every 24 hours. (Patient not taking: Reported on 11/07/2022) Current Facility-Administered Medications Medication Dose Route Frequency perflutren lipid microspheres 1.3 mL in NaCl (PF) 0.9% 10 mL injection (DEFINITY) INTRAVENOUS DIRECTED PRN sodium chloride 0.9 % (flush) 10 mL (BD POSIFLUSH) 10 mL INTRAVENOUS DIRECTED PRN perflutren lipid microspheres 1.3 mL in NaCl (PF) 0.9% 10 mL injection (DEFINITY) INTRAVENOUS DIRECTED PRN sodium chloride 0.9 % (flush) 10 mL (BD POSIFLUSH) 10 mL INTRAVENOUS DIRECTED PRN ALLERGIES Allergen Reactions Flonase [Fluticason* Other: See Comments Nose bleeds Lisinopril Other: See Comments Hyperkalemia Penicillins Rash PAST SURGICAL HISTORY Procedure Laterality Date BACK SURGERY HX fusion- lumbar CARPAL TUNNEL both PAST SURGICAL HISTORY OF left shouder surgery PAST SURGICAL HISTORY OF nasal passages clearing for sleep apnea PAST SURGICAL HISTORY OF 02/13/1981 ORIF right ankle PAST SURGICAL HISTORY OF 04/03/2013 left ulnar nerve decompression FAMILY HISTORY Problem Relation Age of Onset Diabetes Father 2011 with pneumonia other (Dementia) Father Heart Mother CABG 4. Diabetes Sister Ischemic Heart Disease Brother other (Myocardial infarc) Brother Fatal MD No Ocular Disease No Family History Social History Tobacco Use Smoking status: Every Day Packs/day: 1.00 Years: 45.00 Additional pack years: 0.00 Total pack years: 45.00 Types: Cigarettes Smokeless tobacco: Never Vaping Use Vaping Use: Never used Substance Use Topics Alcohol use: Yes Comment: Rarely. 2 beers a year Drug use: No REVIEW OF SYSTEMS GENERAL: Negative for Malaise, significant weight loss, fever RESPIRATORY: Negative for cough, wheezing and shortness of breath CARDIOVASCULAR: Negative for chest pain, leg swelling and palpitations GI: Negative for abdominal discomfort, blood in stools or black stools and change in bowel habits : Negative for dysuria, frequency and incontinence MUSCULOSKELETAL: Negative for joint pain or swelling, back pain, and muscle pain. SKIN: Negative for lesions, rash, and itching. HEMATOLOGY/LYMPHOLOGY Negative for prolonged bleeding, bruising easily, and swollen nodes. ENDOCRINE: Negative for cold or heat intolerance, polyuria, polydipsia and goiter. NEURO: negative Physical Exam: Constitutional: Pt is a well developed 62 year old male who is alert, oriented and cooperative Eyes: Following during examination. No redness or drainage. Respiratory: RR normal and nonlabored. Even breathing. No evidence of distress or shortness of breath. Psychology: Patient is engaged during conversation. Normal affect and mood. Does not appear depressed or anxious during encounter. Vascular: Dorsalis pedis and posterior tibial pulses faintly palpable b/l Capillary Fill time < 5 seconds to digits 1-5 b/l Skin temperature warm to cool proximal to distal b/l Hair growth present to digits Neurological: intact light touch/epicritic sensation b/l intact protective sensation no significant neurological deficits Dermatological: Blister to right midfoot which has drained. There is ulceration to right lower leg that measures 3.0 cm x 1.0 cm x 2 mm deep. Ulceration has fibrotic slough. No ascending erythema is noted to right leg ulceration. Toenails 1-5 right and 2-5 left are thick, elongated, dystrophic. Left hallux toenail has been removed. Musculoskeletal/Orthopaedic: Patient has no pain to palpation of right lower extremity + swelling is present to right foot and leg. No calf pain noted. Radiographs: ordered ASSESSMENT: (I87.2) Venous insufficiency (primary encounter diagnosis) (R09.89) Diminished pulses in lower extremity (L60.0) Ingrowing toenail Pain in toe (E08.41) Diabetic mononeuropathy associated with diabetes mellitus due to underlying condition ([facility]) (S90.821A) Blister (nonthermal), right foot, initial encounter (E11.40, Z79.4) Controlled type 2 diabetes mellitus with diabetic neuropathy, with long-term current use of insulin ([facility]) PLAN: 1. History and physical examination performed. 2. Discussed blister of right foot. It has drained on its own. No local signs of infection. I am going to treat with betadine applied daily and light compression. Xray ordered. 3. Discussed right anterior leg ulceration. Today, ulceration was sharply debrided thru dermis with dermal curette. Total debridement was 3.0 cm x 1.0 cm x 2 mm. Will treat with topical antibiotic cream, adaptic, compression. 4. Toenails 1-5 right and 2-5 left was debrided in length and thickness. Could consider removal of toenails pending pvr 5. Diabetic education performed 6. Xrays ordered. Estelle Cardenas DPM Podiatry [address] [facility] [address] Dept: [phone] Dept Patient presents with: Right Foot - New, Swelling, Blister Left Foot - New, Swelling Patient presents for Bilateral foot swelling, Blister to Right foot, patient states that it popped today. Ulcer from blister to Right parker that Dr. Bacon recommended bactroban ointment for. States that he developed these blisters after having lots of swelling to bilateral legs. documented in this encounter [facility] 12-01-2022 Miscellaneous Notes Left voicemail for patient letting him know his rx was sent in as requested. Tammi Mazariegos Rx sent as requested. Phoned patient and reviewed results and recommendations with him. Patient voiced understanding and requesting 4 additional lasix doses be sent to [facility] in [place] as he has pill packs and no additional doses to take. Patient reports he has an appointment with podiatry on Monday afternoon. ----- Message from Cirilo Bacon MD sent at 12/01/2022 8:45 AM EDT ----- Kidney function normal. No signs of infection with normal WBC. Protein and albumin levels low. Recommend increasing protein intake and may supplement with Boost or Ensure with meals. Recommend increasing Lasix to 40 mg BID for LE edema for the next 4 days and call on Monday with update on his leg swelling. F/u with podiatry as ordered. [facility] [facility] 11[facility]30[facility] [facility] 11-30-2022 History of Presen t illness Narrative Chief Complaint Patient presents with: blister on R foot HPI Kiel Catherine is a 62 year old male who presents here today for Above Complaints.. Patient here today for complaint of blister on top of right foot x4 days. Gradually increasing in size. Not treating with anything at home. Noticed new redness around wound on his right parker. Wound present for about a month. Treating with bactroban ointment TID as directed. Denies fever/chills, nausea, vomiting, diarrhea. Patient does not have a potato chip sorter. Does not have compression stockings at home, but has order. Taking lasix in the evening. Does diurese, but not as well as he used to. Had heart cath yesterday. Told to drink more water to flush dye out of his system. Past medical history, appointments, medications, allergies reviewed. Previous Medical History PAST MEDICAL HISTORY Diagnosis Date Anxiety Atrial septal defect and mitral stenosis Bicuspid aortic valve Bipolar 1 disorder ([facility]) Chronic obstructive pulmonary disease (COPD) ([facility]) Coronary artery disease Degenerative disc disease sees Dr. Sellers Diabetic neuropathy ([facility]) DM (diabetes mellitus) ([facility]) HTN (hypertension) Hyperkalemia Hyperlipidemia Hypogonadism male LVH (left ventricular hypertrophy) Morbid obesity ([facility]) MANISH on CPAP Pain management Dr. Sellers Previous Surgical History PAST SURGICAL HISTORY Procedure Laterality Date BACK SURGERY HX fusion- lumbar CARPAL TUNNEL both PAST SURGICAL HISTORY OF left shouder surgery PAST SURGICAL HISTORY OF nasal passages clearing for sleep apnea PAST SURGICAL HISTORY OF 02/13/1981 ORIF right ankle PAST SURGICAL HISTORY OF 04/03/2013 left ulnar nerve decompression Family History FAMILY HISTORY Problem Relation Age of Onset Diabetes Father 2011 with pneumonia other (Dementia) Father Heart Mother CABG 4. Diabetes Sister Ischemic Heart Disease Brother other (Myocardial infarc) Brother Fatal MD No Ocular Disease No Family History Patient Allergies ALLERGIES Allergen Reactions Flonase [Fluticason* Other: See Comments Nose bleeds Lisinopril Other: See Comments Hyperkalemia Penicillins Rash Current Medications Current Outpatient Medications on File Prior to Visit Medication Sig aspirin 325 mg tablet Take 325 mg by mouth one time only. insulin glargine (LANTUS SOLOSTAR U-100 INSULIN) 100 unit/mL (3 mL) Inject 20 Units subcutaneously daily at bedtime. dulaglutide (TRULICITY) 3 mg/0.5 mL pen injector Inject 3 mg subcutaneously one time a week. furosemide (LASIX) 40 mg tablet Take 1 tablet by mouth every afternoon. losartan (COZAAR) 50 mg tablet Take 1 tablet by mouth every afternoon. famotidine (PEPCID) 20 mg tablet Take 1 tablet by mouth daily at bedtime. clindamycin (CLEOCIN) 300 mg capsule Take 1 capsule by mouth four times daily. pregabalin (LYRICA) 100 mg capsule Take two in the morning, one in the afternoon, and one in the evening. (total of 4 capsules daily). flash glucose sensor (FREESTYLE JOHN 2 SENSOR) kit Change sensor every 14 days for testing blood sugars 4 times daily or more DX: E11.40 Insulin: YES atorvastatin (LIPITOR) 10 mg tablet TAKE 1 TABLET BY MOUTH AT BEDTIME *FOR CHOLESTEROL dilTIAZem CD (CARDIZEM CD, CARTIA XT) 180 mg 24 hr capsule Take 1 capsule by mouth once daily. budesonide-formoterol (SYMBICORT) 80-4.5 mcg/actuation inhaler Inhale 2 Puffs as instructed twice daily. nicotine (NICODERM CQ) 21 mg/24 hr Apply 1 Patch as directed every 24 hours. APPLY ONE(1) PATCH DAILY. (Patient not taking: Reported on 11/07/2022) nicotine (NICODERM CQ) 14 mg/24 hr Apply 1 Patch as directed every 24 hours. (Patient not taking: Reported on 11/07/2022) nicotine (NICODERM CQ) 7 mg/24 hr Apply 1 Patch as directed every 24 hours. (Patient not taking: Reported on 11/07/2022) pantoprazole DR (PROTONIX) 40 mg tablet Take 1 tablet by mouth daily before breakfast. Take on empty stomach, 1/2 hr before meal. metFORMIN (GLUCOPHAGE) 500 mg tablet Take 1 tablet by mouth four times daily. glimepiride (AMARYL) 4 mg tablet Take 1 tablet by mouth daily with breakfast. PEG 400-propylene glycol (SYSTANE ULTRA) 0.4-0.3 % ophthalmic solution Use 1 Drop in both eyes three times daily. propylene glycoL (SYSTANE BALANCE) 0.6 % drop Use 1 Drop in both eyes daily at bedtime. carvedilol (COREG) 3.125 mg tablet Take 1 tablet by mouth twice daily. ergocalciferol 50,000 unit capsule (VITAMIN D2, DRISDOL) Take 1 capsule by mouth one time a week. insulin needles, DISPOSABLE, (PEN NEEDLE) 31 gauge x 5/16 Use one needle per dose. 4per day. flash glucose scanning reader (FREESTYLE JOHN 2 READER) DMII, insulin requiring. Testing 3-5 times q day insulin aspart U-100 (NOVOLOG FLEXPEN U-100 INSULIN) 100 unit/mL (3 mL) Per sliding scale: <200 no coverage, 201-250-2 units, 251-300-4 units, 301-350-6 units, 351-400-8 units, 400-450-10 units, call above 450. blood sugar diagnostic (FREESTYLE LITE STRIPS) test strip TEST BLOOD SUGAR 1-2 TIMES DAILY lancets (FREESTYLE LANCETS) 28 gauge TEST BLOOD SUGAR 1-2 TIMES DAILY albuterol HFA (PROVENTIL HFA, VENTOLIN HFA) 90 mcg/actuation inhaler Inhale 2 Puffs as instructed every 4 hours as needed for wheezing/shortness of breath. oxycodone myristate (XTAMPZA ER ORAL) Take 18 mg by mouth twice daily. Compression Knee Highs KNEE HIGH COMPRESSION STOCKINGS 30-40 MM. DX: EDEMA Blood-Glucose Meter [facility] [place] 1 kit Current Facility-Administered Medications on File Prior to Visit Medication perflutren lipid microspheres 1.3 mL in NaCl (PF) 0.9% 10 mL injection (DEFINITY) sodium chloride 0.9 % (flush) 10 mL (BD POSIFLUSH) perflutren lipid microspheres 1.3 mL in NaCl (PF) 0.9% 10 mL injection (DEFINITY) sodium chloride 0.9 % (flush) 10 mL (BD POSIFLUSH) Social History Social History Tobacco Use Smoking status: Every Day Packs/day: 1.00 Years: 45.00 Additional pack years: 0.00 Total pack years: 45.00 Types: Cigarettes Smokeless tobacco: Never Vaping Use Vaping Use: Never used Substance Use Topics Alcohol use: Yes Comment: Rarely. 2 beers a year Drug use: No Review of Symptoms REVIEW OF SYSTEMS See HPI EXAM: BP 140/84 Pulse 82 Resp 16 Wt 126.1 kg (278 lb) BMI 52.53 kg/m General Appearance: Well appearing, alert, in no acute distress, well-hydrated, well nourished.. Skin: chronic wound on right parker which is reportedly healing per patient and son. Good granulation tissue noted without surrounding warmth, TTP, or drainage. Has faint erythema which resolves with raising his leg. Extremities: Edema: 1-2+ pitting edema to knees bilaterally. 3 x 3 cm clear blister on dorsum of right foot without surrounding erythema or TTP. Health Maintenance List BP Controlled (<130/80) Never done Colorectal Cancer Screening due on 02/13/2017 Hepatitis B Vaccine(1 of 3 - Risk 3-dose series) Never done RSV Vaccine(1 - 1-dose 60+ series) Never done Influenza Vaccine(1) due on 10/14/2022 Covid-19 Vaccine(4 - season) due on 10/14/2022 DTaP,Tdap,Td Vaccine(1 - Tdap) due on 05/21/2023 HIV Screening due on 05/21/2023 Shingrix Vaccine(1 of 2) due on 05/21/2023 HbA1C due on 03/31/2023 Diabetic Foot Exam due on 05/21/2023 Urine Albumin:Creatinine Ratio due on 05/28/2023 Dilated Retinal Exam due on 06/01/2023 Lung Cancer Screening due on 07/15/2023 LDL Cholesterol due on 10/26/2023 Annual PCP Team Chronic Disease Visit due on 12/01/2023 Prostate Cancer Screening Discussion due on 05/03/2026 Depression Assessment Completed Hepatitis C Screening Completed Pneumococcal Vaccine Completed Data reviewed Component Latest Ref Rng & Units 11/09/2022 WBC 3.70 - 11.00 k/uL 9.26 RBC 4.20 - 6.00 m/uL 5.18 Hemoglobin 13.0 - 17.0 g/dL 15.5 Hematocrit 39.0 - 51.0 % 47.3 MCV 80.0 - 100.0 fL 91.3 MCH 26.0 - 34.0 pg 29.9 MCHC 30.5 - 36.0 g/dL 32.8 RDW-CV 11.5 - 15.0 % 13.2 Platelet Count 150 - 400 k/uL 244 MPV 9.0 - 12.7 fL 11.3 Neut% % 71.4 Abs Neut (ANC) 1.45 - 7.50 k/uL 6.60 Lymph% % 19.4 Abs Lymph 1.00 - 4.00 k/uL 1.80 [place]% % 8.0 Abs [place] <0.87 k/uL 0.74 Eosin% % 0.3 Abs Eosin <0.46 k/uL 0.03 Baso% % 0.6 Abs Baso <0.11 k/uL 0.06 Immature Gran % % 0.3 IMMATURE GRANS (ABS) <0.10 k/uL 0.03 NRBC /100 WBC 0.0 Absolute nRBC <0.01 k/uL <0.01 DTYPE Auto Glucose 74 - 99 mg/dL 116 (H) BUN 9 - 24 mg/dL 17 Creatinine 0.73 - 1.22 mg/dL 0.82 Sodium 136 - 144 mmol/L 140 Potassium 3.7 - 5.1 mmol/L 4.9 Chloride 97 - 105 mmol/L 103 CO2 22 - 30 mmol/L 23 Anion Gap 9 - 18 mmol/L 14 Calcium 8.5 - 10.2 mg/dL 9.6 eGFR >=60 mL/min/1.73m 100 ASSESSMENT/PLAN: 1. Blister (nonthermal), right foot, initial encounter - ICD9: 917.2, ICD10: S90.821A (primary diagnosis) Large blister filled with clear/serous fluid without obvious infection. Advised to keep intact and will have him followu p with podiatry tomorrow for possible debridement and monitoring. If lesion ruptures, would have him apply bactroban ointment TID. Red flags for re-assessment reviewed with patient in detail. - CONSULT TO PODIATRY - CBC + DIFF - COMP METABOLIC PANEL 2. Bilateral lower extremity edema - ICD9: 782.3, ICD10: R60.0 Continue daily lasix. Check CMP due to recent heart cath with dye. May increase dosage if renal function stable. Discussed leg elevation, low sodium diet, and compression stockings when wounds heal. 3. Dependent rubor - ICD9: 695.9, ICD10: L53.9 4. Open wound of right lower extremity, subsequent encounter - ICD9: V58.89, 891.0, ICD10: S81.801D Healing well per patient. Continue bactroban ointment. 5. Controlled type 2 diabetes mellitus with diabetic neuropathy, with long-term current use of insulin (HCC) - ICD9: 250.60, 357.2, V58.67, ICD10: E11.40, Z79.4 - Controlled - Continue current medications - CONSULT TO PODIATRY Cirilo Bacon MD documented in this encounter [facility] 11-30-2022 Miscellaneous Notes Pt called in to be seen today because of a blister on his right foot on top which is quarter in size x 4 days. Pt reports he is also having swelling bilateral legs, feet and ankles. Legs have been sore, right leg has been a little more than than usual red last 2 days more than normal. Denies warm to touch. Pt thinks maybe his water pill is not working. Pt feels maybe some of his problems are due to his heart. Pt will be getting his heart surgery scheduled. Pt declined an earlier apt today because he has to arrange transportation. Pt reports he had a heart cath done at [facility] yesterday 11-29-22. This was an outpt procedure. No problems after heart cath. Was not able to book with pt's provider/team. Apt has been booked. July Perez LPN documented in this encounter [facility] 11-29-2022 Note HNO ID: [id number] Author: Amanda Valente MD Service: Cardiovascular Surgery Author Type: Physician Type: Procedures Filed: 11/29/2022 1:07 PM Note Text: LEFT HEART CATHETERIZATION PROCEDURE NOTE Surgery/Procedure Date: 11/29/2022 Referring Physician: Clinical History: This is a 62 year old male with aortic stenosis for Left and right heart cath Consent: Informed consent was obtained after the risks, benefits, and alternatives to and of this procedure were discussed in detail with the patient. Procedure in Detail: The patient was brought to the cardiac catheterization laboratory, prepped and draped in the usual sterile fashion. Anxiolysis was achieved with intravenous and intravenous benadryl. Local anesthesia was achieved over the wrist with 1% lidocaine. A pre-flushed 6-Belizean sheath was inserted into the right radial artery via the Seldinger technique without complications. Retrograde percutaneous diagnostic coronary angiography and left ventriculography were performed using a Hilda left 4 catheter, a 3-D RC catheter, and an angled pigtail catheter. There were no complications of the procedure. Findings: Angiography: LEFT MAIN: Normal. LEFT CIRCUMFLEX: Normal. LEFT ANTERIOR DESCENDING: Mild disease. RIGHT CORONARY ARTERY: Dominant with normal . LEFT VENTRICULOGRAPHY: Right heart cath: Moderate pulmonary hypertension RVSP 37 mmHg. Elevated PWP. At this point, the procedure was terminated. All diagnostic wires and catheters were removed. Impression: Severe aortic stenosis. Moderate pulmonary hypertension Mild coronary a disease. Recommendations: 1. Daily aspirin indefinitely 2. AVR . 3. Statin use 4. Secondary cardiac prevention measures. SIGNATURE: Amanda Valente MD PATIENT NAME: Kiel Catherine DATE: November 29, 2022 TIME: 1:01 PM [facility] 11-25-2022 Miscellaneous Notes Yen calls and requests most recent OV note from Dr. Arthur. Faxed per request to [phone]. Joan Gallardo RN Completed and faxed back as requested. Type of form: CPAP/BiPAP Form received via fax When form is completed, Fax form to [place] Form has been forwarded to Physician Desk: Dr. Jerson Guthrie Ma documented in this encounter [facility] 11-24-2022 Miscellaneous Notes Patient notified of results, verbalizes understanding of instructions. Liz Peralta MA Noted. Thank you. Hold metformin for [address] scan Patient phoned to let pcp know he had CT of heart done today, and was told to hold metformin 2 days before procedure. Asking if he should hold it 2 more days? He cannot remember what they told him. Please advise patient. Reports his back is hurting too much to do the CT brain, but he has ice on it, and trying to get it to calm down, then will try to reschedule in a couple days, since he knows insurance approved it, and doesn't want to miss that window of approval. How are his headaches now? Does he feel he can reschedule. FYI Patient was to have Brain MRI and called to cancel due to back pain and unable to lay on his back and complete this test. documented in this encounter [facility] 11-24-2022 Note HNO ID: [id number] Author: Jaelyn Stockton RT(R) Service: Radiology Author Type: Technologist Type: Progress Notes Filed: 11/24/2022 9:32 AM Note Text: Radiology Service Progress Note DATE OF SERVICE: November 24, 2022 TIME: 9:31 AM PATIENT IDENTITY VERIFICATION COMPLETED USING TWO (2) STANDARD IDENTIFIERS: Name and Date of confirmed by patient verbally and Name and Date of confirmed by identification band. FALL SCREENING: Has the patient had 2 falls in the last year or 1 fall with injury or currently using an Ambulatory Assistive Device (Walker, Cane, Wheelchair, Crutches, etc.)? Yes, Patient High Risk for Falls What interventions were put in place to prevent falls during this visit? [place] Risk Wristband Applied, Instructed Patient to Call for Help if Needed, Offered Assistance with Transfers/Clothing, Instructed Patient to Remain Seated (Not on Exam Table) Until Exam, Increased Observations by Caregivers, and Escorted to/from Restroom PATIENT GENDER DATA: Male PATIENT RELEVANT IMPLANT DATA REVIEWED: Not Applicable ALLERGIES: Reviewed and unchanged CONTRAST ALLERGY: NO. EXAM: CT -CONTRAST INDUCED NEPHROPATHY RISK FACTORS: Patient age > 60 years CREATININE: Creatinine Date Value Ref Range Status 11/09/2022 0.82 0.73 - 1.22 mg/dL Final 10/25/2022 0.92 0.73 - 1.22 mg/dL Final 05/20/2022 0.79 0.73 - 1.22 mg/dL Final Estimated Glomerular Filtration Rate Date Value Ref Range Status 11/09/2022 100 >=60 mL/min/1.73m? Final Comment: Estimated Glomerular Filtration Rate (eGFR) is calculated using the 2020 CKD-EPI creatinine equation. This equation utilizes serum creatinine, sex, and age as parameters. The creatinine assay has traceable calibration to isotope dilution-mass spectrometry. Refer to KDIGO guidelines for clinical interpretation. In patients with unstable renal function, e.g. those with acute kidney injury, the eGFR may not accurately reflect actual GFR. eGFR- Date Value Ref Range Status 06/24/2020 >60 Final P.O.C.T. RESULTS: N/A November 24, 2022 TREATMENT: N/A PERIPHERAL IV DATA: Ambulatory: A peripheral IV was started in the Right antecubital site with a Angio cath: 20 gauge. RADIOLOGY DEPARTMENT: CT; Exam(s) Completed: CTA Abdomen Pelvis and CTA Cardiac SIGNATURE: RT Dharmesh(R) PATIENT NAME: Kiel Catherine DATE: November 24, 2022 TIME: 9:31 AM [facility] 11-24-2022 History of Presen t illness Narrative Radiology Service Progress Note DATE OF SERVICE: November 24, 2022 TIME: 9:31 AM PATIENT IDENTITY VERIFICATION COMPLETED USING TWO (2) STANDARD IDENTIFIERS: Name and Date of confirmed by patient verbally and Name and Date of confirmed by identification band. FALL SCREENING: Has the patient had 2 falls in the last year or 1 fall with injury or currently using an Ambulatory Assistive Device (Walker, Cane, Wheelchair, Crutches, etc.)? Yes, Patient High Risk for Falls What interventions were put in place to prevent falls during this visit? [place] Risk Wristband Applied, Instructed Patient to Call for Help if Needed, Offered Assistance with Transfers/Clothing, Instructed Patient to Remain Seated (Not on Exam Table) Until Exam, Increased Observations by Caregivers, and Escorted to/from Restroom PATIENT GENDER DATA: Male PATIENT RELEVANT IMPLANT DATA REVIEWED: Not Applicable ALLERGIES: Reviewed and unchanged CONTRAST ALLERGY: NO. EXAM: CT -CONTRAST INDUCED NEPHROPATHY RISK FACTORS: Patient age > 60 years CREATININE: Creatinine Date Value Ref Range Status 11/09/2022 0.82 0.73 - 1.22 mg/dL Final 10/25/2022 0.92 0.73 - 1.22 mg/dL Final 05/20/2022 0.79 0.73 - 1.22 mg/dL Final Estimated Glomerular Filtration Rate Date Value Ref Range Status 11/09/2022 100 >=60 mL/min/1.73m Final Comment: Estimated Glomerular Filtration Rate (eGFR) is calculated using the 2020 CKD-EPI creatinine equation. This equation utilizes serum creatinine, sex, and age as parameters. The creatinine assay has traceable calibration to isotope dilution-mass spectrometry. Refer to KDIGO guidelines for clinical interpretation. In patients with unstable renal function, e.g. those with acute kidney injury, the eGFR may not accurately reflect actual GFR. eGFR- Date Value Ref Range Status 06/24/2020 >60 Final P.O.C.T. RESULTS: N/A November 24, 2022 TREATMENT: N/A PERIPHERAL IV DATA: Ambulatory: A peripheral IV was started in the Right antecubital site with a Angio cath: 20 gauge. RADIOLOGY DEPARTMENT: CT; Exam(s) Completed: CTA Abdomen Pelvis and CTA Cardiac SIGNATURE: RT Dharmesh(R) PATIENT NAME: Kiel Catherine DATE: November 24, 2022 TIME: 9:31 AM documented in this encounter [facility] 11-21-2022 Miscellaneous Notes Pharmacy verified in [facility] Patient has been identified by name and date of : Yes Patient aware RX will be sent to pharmacy. No need to notify patient. Patient phones for refill(s): Requested Prescriptions Pending Prescriptions Disp Refills insulin glargine (LANTUS SOLOSTAR U-100 INSULIN) 100 unit/mL (3 mL) 6 Each 1 Sig: Inject 20 Units subcutaneously daily at bedtime. Date of last office visit : 11/09/2022 Date of next office visit : Visit date not found Last 2 Encounter Wt Readings: Date: Wt: 11/17/2022 126.1 kg (278 lb) 11/09/2022 125.1 kg (275 lb 12.8 oz) Not applicable Please advise. Carmen Figueroa Pss documented in this encounter [facility] 11-17-[address] [facility] 11-17-2022 History of Presen t illness Narrative PULM FUNCTION SMARTBLOCK: Provider: Lisa Foster APRN.RESERVOIR CARETAKER Assisting Tech: Senia Brower RPFT Spirometry: 1 DLCO: 1 LV - Box: 1 documented in this encounter [facility] 11-09-[address] [facility] 11-07-2022 Note HNO ID: [id number] Author: Benjamin Calhoun MD Service: ? Author Type: Physician Type: Progress Notes Filed: 11/09/2022 4:47 PM Note Text: PRIMARY CARE PHYSICIAN: Juan Miguel Arthur [address] [place] [address] Subjective Chief Complaint Patient presents with: Valvular Heart Disease: Kiel is new pt rfd by Dario Colbert CNP HISTORY OF PRESENT ILLNESS: Mr. Catherine is a 62 year old male with past medical history as listed including morbid obesity with BMI of 52, DM type II, COPD, coronary artery disease, bipolar 1 disorder, hypertension, hyperlipidemia, MANISH on CPAP, and pain management for back pain with known bicuspid aortic stenosis initially followed by Dr. Montgomery in [place] and transitioned to care in [place] with our cardiology team. He had a recent TTE on 09/30/2022, and though the images are poor due to body habitus he did have findings of severe aortic stenosis with peak gradient of 76, mean gradient 39 DI 0.23, and aortic valve area of 1.0. He was recently admitted to [facility] for a blister on the anterior right lower extremity over the tibia which had popped causing an open wound, and TTE done at the hospital demonstrated findings more consistent with moderate aortic stenosis. His symptoms include shortness of breath with exertion which has been worsening over the past few months. Review of Systems Constitutional: Positive for malaise/fatigue. Negative for chills, fever and weight loss. HENT: Negative for sore throat. Eyes: Negative for blurred vision and double vision. Respiratory: Positive for shortness of breath. Negative for cough, hemoptysis, wheezing and stridor. Cardiovascular: Negative for chest pain, palpitations, leg swelling and PND. Gastrointestinal: Negative for abdominal pain, melena, nausea and vomiting. Genitourinary: Negative for flank pain and hematuria. Musculoskeletal: Negative for myalgias. Skin: Negative for rash. Neurological: Negative for dizziness, seizures, loss of consciousness and weakness. Endo/Heme/Allergies: Does not bruise/bleed easily. Objective PAST MEDICAL HISTORY Diagnosis Date Anxiety Atrial septal defect and mitral stenosis Bicuspid aortic valve Bipolar 1 disorder (HCC) Chronic obstructive pulmonary disease (COPD) ([facility]) Coronary artery disease Degenerative disc disease sees Dr. Sellers Diabetic neuropathy ([facility]) DM (diabetes mellitus) ([facility]) HTN (hypertension) Hyperkalemia Hyperlipidemia Hypogonadism male LVH (left ventricular hypertrophy) Morbid obesity (HCC) MANISH on CPAP Pain management Dr. Sellers PAST SURGICAL HISTORY Procedure Laterality Date BACK SURGERY HX fusion- lumbar CARPAL TUNNEL both PAST SURGICAL HISTORY OF left shouder surgery PAST SURGICAL HISTORY OF nasal passages clearing for sleep apnea PAST SURGICAL HISTORY OF 02/13/1981 ORIF right ankle PAST SURGICAL HISTORY OF 04/03/2013 left ulnar nerve decompression FAMILY HISTORY Problem Relation Age of Onset Diabetes Father 2011 with pneumonia other (Dementia) Father Heart Mother CABG 4. Diabetes Sister Ischemic Heart Disease Brother other (Myocardial infarc) Brother Fatal MD No Ocular Disease No Family History Social History Tobacco Use Smoking status: Every Day Packs/day: 1.00 Years: 45.00 Additional pack years: 0.00 Total pack years: 45.00 Types: Cigarettes Smokeless tobacco: Never Vaping Use Vaping Use: Never used Substance Use Topics Alcohol use: Yes Comment: Rarely. 2 beers a year Drug use: No ALLERGIES Allergen Reactions Flonase [Fluticason* Other: See Comments Nose bleeds Lisinopril Other: See Comments Hyperkalemia Penicillins Rash Physical Examination Vitals:BP 140/70 Pulse 95 Resp 18 Ht 5' 1 (1.55m) Wt 278 lb (126.1kg) SpO2 96% BMI 52.55 kg/(m2). BP w/Orthostatic Vitals Date and Time Orthostatic BP Orthostatic Pulse BP Pulse BP Position BP Site BP Cuff Size 11/07/22 1405 -- -- 140/70 95 Sitting Left Arm -- Peak Flow Date and Time PF Resp 11/07/22 1405 -- 18 Last 2 Encounter Wt Readings: Date: Wt: 11/09/2022 275 lb 12.8 oz (125.1 kg) 11/07/2022 278 lb (126.1 kg) Physical Exam Constitutional: Appearance: He is obese. HENT: Head: Normocephalic and atraumatic. Eyes: Pupils: Pupils are equal, round, and reactive to light. Neck: Thyroid: No thyromegaly. Trachea: No tracheal deviation. Cardiovascular: Rate and Rhythm: Normal rate and regular rhythm. Heart sounds: Murmur heard. Comments: Due to his morbid obesity, unable to discern fine heart sounds but it does appear that he has a systolic murmur with no appreciable S2 Pulmonary: Effort: Pulmonary effort is normal. No accessory muscle usage or respiratory distress. Breath sounds: Normal breath sounds. Abdominal: General: There is no distension. Palpations: Abdomen is soft. Tenderness: The (more content not included)... [facility] 11-03-[address] [facility] 11-02-2022 Miscellaneous Notes Patient requesting CPAP order be faxed to [facility] at [phone]. Faxed as requested. Janki Vale RN documented in this encounter [facility] 11-01-2022 Miscellaneous Notes Patient notified. Verbalized understanding. He sees Dr Sellers for his back. He should be contacting him. Patient is calling requesting medication (Muscle relaxer) for back pain, declined to schedule appointment to review back pain, Patient uses [facility] in [place] documented in this encounter [facility] 10-27-[address] [facility] 10-27-2022 Instructions Kayla Licea LPN - 10/27/2022 3:47 PM EDT Instructions After I & D You are instructed to wet guaze and remove daily, clean wound with antibacterial soap, dry thoroughly, and repack with corner of guaze and place bandage over. You should notice every day that you have to put less and less guaze in the wound. If the dressing becomes soaked or had significant drainage, the dressing should be changed. If there is minor bleeding from this skin edge, you should hold pressure on the incision. If there is continued bleeding, you should contact our office immediately. Wash the wound with gentle soap and water. You may shower. The wound should not be immersed in a pool, bathtub, or even hot tub. If the wound shows signs of redness, inflammation, or purulent drainage, you should contact our office immediately. Nena Fitzgerald would like to see you back in 1 week for wound check. If you have any questions or concerns please feel free to call our office at [phone] and ask to be transferred to General Surgery. Thank you for choosing [facility] - General Surgery. documented in this encounter [facility] 10-27-2022 Nurse Note UNIVERSAL PROTOCOL / SAFETY CHECKLIST Procedure to be Performed: Incision and drainage of right posterior thigh abscess Sign In: A Moment of CARE was completed. Personnel directly involved with the procedure wore the appropriate PPE (Personal Protective Equipment). No special equipment needed. Patient/Surrogate Stated/Verified: PATIENT VERIFIED(optional for EMERGENT procedures): Patient name, Date of , Relevant allergies, and The intended procedure Time Out Communication: Intended patient and procedure match the source documents. Consent documented and matches the intended procedure. Relevant labs, photos, and/or imaging studies have been reviewed. Correct side/site marked and visible. Medications required for procedure verified. No fire risk assessment and interventions applicable. No implant(s) inserted. Sign Out: SIGN OUT (optional for EMERGENT procedures): All specimen containers correctly labeled. No instruments, equipment or retained foreign bodies applicable. Post-procedure follow-up management communicated and Plan of Care Visit completed when applicable. Kayla Licea LPN REVIEW OF SYSTEMS: General: The patient NOTES fatigue, denies weight loss, denies weight gain, NOTES feeling hot, and NOTES feelings of cold. Eyes: The patient denies glaucoma, denies eye injury/surgery, does not wear glasses or contacts. Ear/Nose/Throat: The patient NOTES allergies, denies hayfever, denies ear infections, and denies bloody noses. Cardiovascular: The patient denies chest pain, NOTES heart disease, NOTES high blood pressure,denies cardiac stent, denies prior heart attack, NOTES irregular heart beat, NOTES high cholesterol, NOTES poor circulation, denies heart failure, other cardiac issues, denies claudication, denies cold feet, denies peripheral arterial stent. Respiratory: The patient denies tuberculosis, NOTES pneumonia, NOTES frequent cough, denies pulmonary embolism, NOTES shortness of breath, and denies coughing up blood. Gastrointestinal: The patient NOTES difficulty swallowing, NOTES acid reflux, denies ulcers, denies vomiting, denies jaundice/hepatitis, denies gallbladder problems, denies black or tarry stools, denies hemorrhoids, denies bleeding from rectum, denies diverticulitis, denies constipation, denies diarrhea, denies loss of stool control, and NOTES hernias. Kidney/Bladder: The patient denies kidney stones, denies urine infections, and denies bloody urine. Skin: The patient denies a history of skin cancer, denies bleeding/changing moles, and denies a history of skin rash. Neurologic: The patient denies a history of epilepsy/convulsions, NOTES headaches, NOTES head/spinal injuries, and denies stroke/TIA. Psychiatric: The patient denies psychiatric medications, NOTES depression, and denies voices, denies substance abuse. Endocrine: The patient denies thyroid disorders, NOTES diabetes, and denies hormonal problems. Hematologic: The patient NOTES a history of bruising, NOTES bleeding, and denies anemia, denies blood clots. Infections: The patient NOTES a history of measles and mumps, denies rheumatic fever, and denies sexually transmitted diseases. Musculoskeletal: The patient NOTES back pain/injury, NOTES back problems, denies sciatica, denies knee/foot trouble, NOTES arthritis, or denies gout. When was patient's last Mammogram screening? N/A Last Colonoscopy: 2007 Kayla Licea LPN documented in this encounter [facility] 10-27-2022 History of Presen t illness Narrative HISTORY AND PHYSICAL Kiel Catherine 1960 REFERRING PHYSICIAN: Juan Miguel Arthur MD CHIEF COMPLAINT: abscess HPI: Kiel is a 62 year old male with a complaint of a right thigh abscess. Patient has noticed this for about a week, Has had some drainage of fluid from the site. Denies fever or chills. he NOTES a history of diabetes. The patient was seen by primary care and was started on oral antibiotics, as well as referred for surgical evaluation and consideration for incision and drainage. SIGNIFICANT MEDICAL PROBLEMS: PAST MEDICAL HISTORY Diagnosis Date Anxiety Atrial septal defect and mitral stenosis Bicuspid aortic valve Bipolar 1 disorder ([facility]) Chronic obstructive pulmonary disease (COPD) ([facility]) Coronary artery disease Degenerative disc disease sees Dr. Sellers Diabetic neuropathy ([facility]) DM (diabetes mellitus) ([facility]) HTN (hypertension) Hyperkalemia Hyperlipidemia Hypogonadism male LVH (left ventricular hypertrophy) Morbid obesity ([facility]) MANISH on CPAP Pain management Dr. Sellers OPERATIONS: PAST SURGICAL HISTORY Procedure Laterality Date BACK SURGERY HX fusion- lumbar CARPAL TUNNEL both PAST SURGICAL HISTORY OF left shouder surgery PAST SURGICAL HISTORY OF nasal passages clearing for sleep apnea PAST SURGICAL HISTORY OF 02/13/1981 ORIF right ankle PAST SURGICAL HISTORY OF 04/03/2013 left ulnar nerve decompression CURRENT MEDICATIONS: Current Outpatient Medications Medication Sig Dispense Refill furosemide (LASIX) 40 mg tablet Take 1 tablet by mouth every afternoon. losartan (COZAAR) 50 mg tablet Take 1 tablet by mouth every afternoon. famotidine (PEPCID) 20 mg tablet Take 1 tablet by mouth daily at bedtime. 30 tablet 5 clindamycin (CLEOCIN) 300 mg capsule Take 1 capsule by mouth four times daily. 40 capsule 0 mupirocin (BACTROBAN) 2 % ointment Apply to affected area three times daily for 10 days. 30 g 0 pregabalin (LYRICA) 100 mg capsule Take two in the morning, one in the afternoon, and one in the evening. (total of 4 capsules daily). 120 capsule 2 flash glucose sensor (FREESTYLE JOHN 2 SENSOR) kit Change sensor every 14 days for testing blood sugars 4 times daily or more DX: E11.40 Insulin: YES 6 Each 3 atorvastatin (LIPITOR) 10 mg tablet TAKE 1 TABLET BY MOUTH AT BEDTIME *FOR CHOLESTEROL 30 tablet 5 dilTIAZem CD (CARDIZEM CD, CARTIA XT) 180 mg 24 hr capsule Take 1 capsule by mouth once daily. 30 capsule 5 budesonide-formoterol (SYMBICORT) 80-4.5 mcg/actuation inhaler Inhale 2 Puffs as instructed twice daily. 1 Each 3 nicotine (NICODERM CQ) 21 mg/24 hr Apply 1 Patch as directed every 24 hours. APPLY ONE(1) PATCH DAILY. 28 Patch 0 nicotine (NICODERM CQ) 14 mg/24 hr Apply 1 Patch as directed every 24 hours. 28 Patch 0 nicotine (NICODERM CQ) 7 mg/24 hr Apply 1 Patch as directed every 24 hours. [address] (PROTONIX) 40 mg tablet Take 1 tablet by mouth daily before breakfast. Take on empty stomach, 1/2 hr before meal. 30 tablet 11 metFORMIN (GLUCOPHAGE) 500 mg tablet Take 1 tablet by mouth four times daily. 120 tablet 11 glimepiride (AMARYL) 4 mg tablet Take 1 tablet by mouth daily with breakfast. 30 tablet 11 insulin glargine (LANTUS SOLOSTAR U-100 INSULIN) 100 unit/mL (3 mL) Inject 20 Units subcutaneously daily at bedtime. 6 Each 1 PEG 400-propylene glycol (SYSTANE ULTRA) 0.4-0.3 % ophthalmic solution Use 1 Drop in both eyes three times daily. 15 mL 3 propylene glycoL (SYSTANE BALANCE) 0.6 % drop Use 1 Drop in both eyes daily at bedtime. 10 mL 3 carvedilol (COREG) 3.125 mg tablet Take 1 tablet by mouth twice daily. 60 tablet 11 ergocalciferol 50,000 unit capsule (VITAMIN D2, DRISDOL) Take 1 capsule by mouth one time a week. 4 capsule 11 insulin needles, DISPOSABLE, (PEN NEEDLE) 31 gauge x 5/16 Use one needle per dose. 4per day. 100 Each 11 dulaglutide (TRULICITY) 3 mg/0.5 mL pen injector Inject 3 mg subcutaneously one time a week. 2 mL 11 flash glucose scanning reader (FREESTYLE JOHN 2 READER) DMII, insulin requiring. Testing 3-5 times q day 1 Each 0 insulin aspart U-100 (NOVOLOG FLEXPEN U-100 INSULIN) 100 unit/mL (3 mL) Per sliding scale: <200 no coverage, 201-250-2 units, 251-300-4 units, 301-350-6 units, 351-400-8 units, 400-450-10 units, call above 450. 5 Pen 11 blood sugar diagnostic (FREESTYLE LITE STRIPS) test strip TEST BLOOD SUGAR 1-2 TIMES DAILY 100 Strip 11 lancets (FREESTYLE LANCETS) 28 gauge TEST BLOOD SUGAR 1-2 TIMES DAILY 100 Each 11 albuterol HFA (PROVENTIL HFA, VENTOLIN HFA) 90 mcg/actuation inhaler Inhale 2 Puffs as instructed every 4 hours as needed for wheezing/shortness of breath. 1 Each 0 oxycodone myristate (XTAMPZA ER ORAL) Take 18 mg by mouth twice daily. Compression Knee Highs KNEE HIGH COMPRESSION STOCKINGS 30-40 MM. DX: EDEMA 1 Each 3 Blood[place]Glucose Meter [facility] [place] 1 kit 1 Each 0 Current Facility-Administered Medications Medication Dose Route Frequency Provider Last Rate Last Admin perflutren lipid microspheres 1.3 mL in NaCl (PF) 0.9% 10 mL injection (DEFINITY) INTRAVENOUS DIRECTED PRN Kathy Colbert APRN.[employer] sodium chloride 0.9 % (flush) 10 mL (BD POSIFLUSH) 10 mL INTRAVENOUS DIRECTED PRN Kathy Colbert APRN.CNP perflutren lipid microspheres 1.3 mL in NaCl (PF) 0.9% 10 mL injection (DEFINITY) INTRAVENOUS DIRECTED PRN Scott Livingston PA-C sodium chloride 0.9 % (flush) 10 mL (BD POSIFLUSH) 10 mL INTRAVENOUS DIRECTED PRN Scott Livingston PA-C ALLERGIES: Flonase [Fluticasone Propionate], Lisinopril, and Penicillins PERSONAL HISTORY: Social History Tobacco Use Smoking status: Every Day Packs/day: 0.75 Years: 45.00 Additional pack years: 0.00 Total pack years: 33.75 Types: Cigarettes Smokeless tobacco: Never Tobacco comments: less than a pack/day. Vaping Use Vaping Use: Never used Substance Use Topics Alcohol use: Yes Comment: Rarely. 2 beers a year Drug use: No FAMILY HISTORY: FAMILY HISTORY Problem Relation Age of Onset Diabetes Father 2011 with pneumonia other (Dementia) Father Heart Mother CABG 4. Diabetes Sister Ischemic Heart Disease Brother other (Myocardial infarc) Brother Fatal MD No Ocular Disease No Family History REVIEW OF SYMPTOMS: The review of systems data was entered by the nurse and reviewed by [place] Nursing Notes: Kayla Licea LPN 10/27/2022 3:03 PM Signed REVIEW OF SYSTEMS: General: The patient NOTES fatigue, denies weight loss, denies weight gain, NOTES feeling hot, and NOTES feelings of cold. Eyes: The patient denies glaucoma, denies eye injury/surgery, does not wear glasses or contacts. Ear/Nose/Throat: The patient NOTES allergies, denies hayfever, denies ear infections, and denies bloody noses. Cardiovascular: The patient denies chest pain, NOTES heart disease, NOTES high blood pressure,denies cardiac stent, denies prior heart attack, NOTES irregular heart beat, NOTES high cholesterol, NOTES poor circulation, denies heart failure, other cardiac issues, denies claudication, denies cold feet, denies peripheral arterial stent. Respiratory: The patient denies tuberculosis, NOTES pneumonia, NOTES frequent cough, denies pulmonary embolism, NOTES shortness of breath, and denies coughing up blood. Gastrointestinal: The patient NOTES difficulty swallowing, NOTES acid reflux, denies ulcers, denies vomiting, denies jaundice/hepatitis, denies gallbladder problems, denies black or tarry stools, denies hemorrhoids, denies bleeding from rectum, denies diverticulitis, denies constipation, denies diarrhea, denies loss of stool control, and NOTES hernias. Kidney/Bladder: The patient denies kidney stones, denies urine infections, and denies bloody urine. Skin: The patient denies a history of skin cancer, denies bleeding/changing moles, and denies a history of skin rash. Neurologic: The patient denies a history of epilepsy/convulsions, NOTES headaches, NOTES head/spinal injuries, and denies stroke/TIA. Psychiatric: The patient denies psychiatric medications, NOTES depression, and denies voices, denies substance abuse. Endocrine: The patient denies thyroid disorders, NOTES diabetes, and denies hormonal problems. Hematologic: The patient NOTES a history of bruising, NOTES bleeding, and denies anemia, denies blood clots. Infections: The patient NOTES a history of measles and mumps, denies rheumatic fever, and denies sexually transmitted diseases. Musculoskeletal: The patient NOTES back pain/injury, NOTES back problems, denies sciatica, denies knee/foot trouble, NOTES arthritis, or denies gout. When was patient's last Mammogram screening? N/A Last Colonoscopy: 2007 ANALI Curry Samaria, LPN 10/27/2022 3:28 PM Sign at exiting of workspace UNIVERSAL PROTOCOL / SAFETY CHECKLIST Procedure to be Performed: Incision and drainage of right posterior thigh abscess Sign In: A Moment of CARE was completed. Personnel directly involved with the procedure wore the appropriate PPE (Personal Protective Equipment). No special equipment needed. Patient/Surrogate Stated/Verified: PATIENT VERIFIED(optional for EMERGENT procedures): Patient name, Date of , Relevant allergies, and The intended procedure Time Out Communication: Intended patient and procedure match the source documents. Consent documented and matches the intended procedure. Relevant labs, photos, and/or imaging studies have been reviewed. Correct side/site marked and visible. Medications required for procedure verified. No fire risk assessment and interventions applicable. No implant(s) inserted. Sign Out: SIGN OUT (optional for EMERGENT procedures): All specimen containers correctly labeled. No instruments, equipment or retained foreign bodies applicable. Post-procedure follow-up management communicated and Plan of Care Visit completed when applicable. Kayla Licea LPN PHYSICAL EXAMINATION: General: The patient is 62 year old male, well nourished, well hydrated in no acute distress. The patient is oriented to time, place, and person. VITALS: Blood pressure 132/80, pulse 97, temperature 36.4 C (97.5 F), height 154.9 cm (5' 1 ), weight 125.8 kg (277 lb 6.4 oz), SpO2 96 %. Body mass index is 52.41 kg/m . HEENT: exam deferred Extremities: no clubbing, cyanosis or edema. No adenopathy. Other: right proximal thigh +5 cm area of induration with overlying erythema and tenderness and large central area of yellow necrotic eschar The skin overlying the point of maximal fluctance is not viable. LABORATORY VALUES: As Noted RADIOLOGIC STUDIES: As Noted PROCEDURE: INCISION AND DRAINAGE OF right thigh ABSCESS After consent was obtained and the site, person, and procedure verified, the patient`s skin was prepped and draped in the usual fashion. A combination of Lidocaine and Marcaine was injected into the skin. A linear incision was made over the point of maximal fluctuance. A small amount of purulent material was drained. The abscess was then unroofed and a large area of necrotic material debrided. The cavity was packed with plain gauze. The patient tolerated the procedure well. Assessment IMPRESSION: STATUS POST INCISION AND DRAINAGE OF right thigh ABSCESS PLAN: Kiel is instructed to perform daily packing changes. If the dressing becomes soaked or had significant drainage, the dressing should be changed. If there is minor bleeding from this skin edge, the patient should hold pressure on the incision. If there is continued bleeding, the patient should contact our office immediately. The patient should wash the wound with gentle soap and water. he may shower. The wound should not be immersed in a pool, bathtub, or even hot tub. Diagnoses: (L02.415) Cutaneous abscess of right lower extremity (L03.90) Cellulitis of skin Return to Clinic: The patient is instructed to follow-up with me in one week. The patient verbalized understanding of all above and agreed with the plan Nena Fitzgerald PA-C documented in this encounter [facility] 10-26-2022 Miscellaneous Notes Patient notified. Let him know his xray is ok. documented in this encounter [facility] 10-25-[address] [facility] 10-25-[address] [facility] 10-25-2022 Miscellaneous Notes [facility] calling regarding script received for pt's Bactroban cream today. Insurance does not cover the cream, but does cover the ointment. Pharmacy asking if provider would like to change to ointment? Please contact [facility]. Thank you. documented in this encounter [facility] 10-25-2022 History of Presen t illness Narrative Patient presents with: Hospital Follow Up HPI: Patient presents today for office visit for Hospital follow up. Also has concerns of painful boil on upper inside of right thigh. Oozing fluid. Denies fever. Has been there about four days. Admitted into [facility] 10/09/22 Went in for shortness of breath with edema to B/L legs Discharged on 10/11/22 Dx with Pneumonia Medication list reconciled. Abx completed. Was on rocephin and zithromax. Changed to steroids and levaquin. Had chest xray and cta. Reviewed right middle and right lower lobe pneumonia Bnp was negative. Echo showed ef of 55% and moderate Aortic stenosis. Will be seeing cardiothoracic surgery for evaluation of his bicuspid aortic valve. Currently: no fever or chills. Cough is improving. Breathing is better than it was. Has some edema but is overall ok. Developed a blister on his right parker before his hospitalization. Still some serous drainage. Blister popped about three to four days after being in the hospital. No surrounding redness that is new. Has chronic venous stasis changes on legs. Complaints of tiredness and weakness. Refers to legs feeling like rubber and are achy all the time. Having some headaches. Has been happening multiple times a week for four months. No trauma. Mild blurred vision with pressure behind his eyes. Has been seeing his eye doctor for his vision. They are following his eye pressures.Not the worst headache he has had. Can be aggravating but not debilitating. Lasts only a short time. Has been that way for close to four months. No focal numbness or weakness. No speech changes. Still using his cpap. Denies chest pain Has been watching his diet and lost some weight. Sugars went up with steroids but are improving. Last a1c was 7.0. Reflux has been acting up since he was in the hospital. He was placed on diclofenac. No black or bloody stools. Is on pantoprezole. MEDICATIONS: Current Outpatient Medications Medication Sig Diclofenac Potassium 25 mg cap Take 1 capsule by mouth every 12 (twelve) hours. furosemide (LASIX) 40 mg tablet Take 1 tablet by mouth every afternoon. losartan (COZAAR) 50 mg tablet Take 1 tablet by mouth every afternoon. potassium chloride ER (KLOR-CON) 20 mEq tablet Take 1 tablet by mouth every afternoon. predniSONE (DELTASONE) 20 mg tablet take 2 tablets by mouth in the morning pregabalin (LYRICA) 100 mg capsule Take two in the morning, one in the afternoon, and one in the evening. (total of 4 capsules daily). flash glucose sensor (FiiilingYLE JOHN 2 SENSOR) kit Change sensor every 14 days for testing blood sugars 4 times daily or more DX: E11.40 Insulin: YES atorvastatin (LIPITOR) 10 mg tablet TAKE 1 TABLET BY MOUTH AT BEDTIME *FOR CHOLESTEROL dilTIAZem CD (CARDIZEM CD, CARTIA XT) 180 mg 24 hr capsule Take 1 capsule by mouth once daily. budesonide-formoterol (SYMBICORT) 80-4.5 mcg/actuation inhaler Inhale 2 Puffs as instructed twice daily. nicotine (NICODERM CQ) 21 mg/24 hr Apply 1 Patch as directed every 24 hours. APPLY ONE(1) PATCH DAILY. nicotine (NICODERM CQ) 14 mg/24 hr Apply 1 Patch as directed every 24 hours. nicotine (NICODERM CQ) 7 mg/24 hr Apply 1 Patch as directed every [address] (PROTONIX) 40 mg tablet Take 1 tablet by mouth daily before breakfast. Take on empty stomach, 1/2 hr before meal. metFORMIN (GLUCOPHAGE) 500 mg tablet Take 1 tablet by mouth four times daily. glimepiride (AMARYL) 4 mg tablet Take 1 tablet by mouth daily with breakfast. insulin glargine (LANTUS SOLOSTAR U-100 INSULIN) 100 unit/mL (3 mL) Inject 20 Units subcutaneously daily at bedtime. PEG 400-propylene glycol (SYSTANE ULTRA) 0.4-0.3 % ophthalmic solution Use 1 Drop in both eyes three times daily. propylene glycoL (SYSTANE BALANCE) 0.6 % drop Use 1 Drop in both eyes daily at bedtime. carvedilol (COREG) 3.125 mg tablet Take 1 tablet by mouth twice daily. ergocalciferol 50,000 unit capsule (VITAMIN D2, DRISDOL) Take 1 capsule by mouth one time a week. insulin needles, DISPOSABLE, (PEN NEEDLE) 31 gauge x 5/16 Use one needle per dose. 4per day. dulaglutide (TRULICITY) 3 mg/0.5 mL pen injector Inject 3 mg subcutaneously one time a week. flash glucose scanning reader (FREESTYLE JOHN 2 READER) DMII, insulin requiring. Testing 3-5 times q day insulin aspart U-100 (NOVOLOG FLEXPEN U-100 INSULIN) 100 unit/mL (3 mL) Per sliding scale: <200 no coverage, 201-250-2 units, 251-300-4 units, 301-350-6 units, 351-400-8 units, 400-450-10 units, call above 450. blood sugar diagnostic (FREESTYLE LITE STRIPS) test strip TEST BLOOD SUGAR 1-2 TIMES DAILY lancets (FREESTYLE LANCETS) 28 gauge TEST BLOOD SUGAR 1-2 TIMES DAILY albuterol HFA (PROVENTIL HFA, VENTOLIN HFA) 90 mcg/actuation inhaler Inhale 2 Puffs as instructed every 4 hours as needed for wheezing/shortness of breath. oxycodone myristate (XTAMPZA ER ORAL) Take 18 mg by mouth twice daily. Compression Knee Highs KNEE HIGH COMPRESSION STOCKINGS 30-40 MM. DX: EDEMA Blood[place]Glucose Meter [facility] [place] 1 kit Current Facility-Administered Medications Medication Dose Route Frequency perflutren lipid microspheres 1.3 mL in NaCl (PF) 0.9% 10 mL injection (DEFINITY) INTRAVENOUS DIRECTED PRN sodium chloride 0.9 % (flush) 10 mL (BD POSIFLUSH) 10 mL INTRAVENOUS DIRECTED PRN perflutren lipid microspheres 1.3 mL in NaCl (PF) 0.9% 10 mL injection (DEFINITY) INTRAVENOUS DIRECTED PRN sodium chloride 0.9 % (flush) 10 mL (BD POSIFLUSH) 10 mL INTRAVENOUS DIRECTED PRN ALLERGIES: ALLERGIES Allergen Reactions Flonase [Fluticason* Other: See Comments Nose bleeds Lisinopril Other: See Comments Hyperkalemia Penicillins Rash PAST MEDICAL HISTORY Diagnosis Date Anxiety Atrial septal defect and mitral stenosis Bicuspid aortic valve Bipolar 1 disorder ([facility]) Chronic obstructive pulmonary disease (COPD) ([facility]) Coronary artery disease Degenerative disc disease sees Dr. Sellers Diabetic neuropathy ([facility]) DM (diabetes mellitus) ([facility]) HTN (hypertension) Hyperkalemia Hyperlipidemia Hypogonadism male LVH (left ventricular hypertrophy) Morbid obesity ([facility]) MANISH on CPAP Pain management Dr. Sellers PAST SURGICAL HISTORY Procedure Laterality Date BACK SURGERY HX fusion- lumbar CARPAL TUNNEL both PAST SURGICAL HISTORY OF left shouder surgery PAST SURGICAL HISTORY OF nasal passages clearing for sleep apnea PAST SURGICAL HISTORY OF 02/13/1981 ORIF right ankle PAST SURGICAL HISTORY OF 04/03/2013 left ulnar nerve decompression FAMILY HISTORY Problem Relation Age of Onset Diabetes Father 2011 with pneumonia other (Dementia) Father Heart Mother CABG 4. Diabetes Sister Ischemic Heart Disease Brother other (Myocardial infarc) Brother Fatal MD No Ocular Disease No Family History Social History Tobacco Use Smoking status: Every Day Packs/day: 0.75 Years: 45.00 Additional pack years: 0.00 Total pack years: 33.75 Types: Cigarettes Smokeless tobacco: Never Tobacco comments: less than a pack/day. Vaping Use Vaping Use: Never used Substance Use Topics Alcohol use: Yes Comment: Rarely. 2 beers a year Drug use: No Reviewed current medications, allergies, past medical history, surgical history, family history and social history today. REVIEW OF SYSTEMS All other reviewed and negative other than HPI. HEALTH MAINTENANCE: Reviewed health maintenance issues today and recommended the following in detail. BP Controlled (<130/80) Never done Colorectal Cancer Screening -recommended. Influenza Vaccine(1) due on 10/14/2022 LDL Cholesterol due on 10/27/2022 VITALS: BP 116/60 Pulse 95 Ht 154.9 cm (5' 1 ) Wt 125.6 kg (276 lb 12.8 oz) SpO2 95% BMI 52.30 kg/m Last 4 Encounter Wt Readings: Date: Wt: 09/28/2022 131.1 kg (289 lb) 07/04/2022 132.9 kg (293 lb) 06/28/2022 132.9 kg (293 lb) 06/28/2022 132 kg (291 lb) PHYSICAL EXAMINATION: General appearance: Well appearing, alert, in no acute distress, well-hydrated, well nourished. Skin: large superficial shallow wound where blister has deroofed. No signs of infection. Large area of redness with open area on right upper leg. Fullness beneath. No definite fluctuence. Head: Normocephalic, no masses, lesions, tenderness or abnormalities Lungs: Lungs clear to auscultation. No wheezing, rhonchi, rales Heart: RRR, murmur noted. Abdomen: Normal abdominal exam, Abdomen soft, non-tender. Bowel sounds normal. No masses, organomegaly Extremities: one plus edema which is much better. Musculoskeletal: No joint swelling, deformity, or tenderness NEURO: no focal deficits. No CN deficits. No motor or sensory abnormalities. Neuro is unchanged. ASSESSMENT/PLAN: 1. Bacterial pneumonia - ICD9: 482.9, ICD10: J15.9 (primary diagnosis) - check labs and xray. Appears to be clinically doing better. Red flags for re-assessment reviewed with patient in detail. - CBC + DIFF - BASIC METABOLIC PNL - XR CHEST 2V FRONTAL/LAT 2. Nonrheumatic aortic valve stenosis - ICD9: 424.1, ICD10: I35.0 - see CVS 3. DDD (degenerative disc disease), lumbar - ICD9: 722.52, ICD10: M51.36 - per pain management. 4. Controlled type 2 diabetes mellitus with diabetic neuropathy, with long-term current use of insulin (HCC) - ICD9: 250.60, 357.2, V58.67, ICD10: E11.40, Z79.4 - much better improvement. - LIPID PANEL, NONFASTING 5. Bicuspid aortic valve - ICD9: 746.4, ICD10: Q23.1 - as above. 6. Sleep apnea, unspecified type - ICD9: 780.57, ICD10: G47.30 - continue tx 7. Chronic bronchitis, simple (HCC) - ICD9: 491.0, ICD10: J41.0 - doing better. 8. Essential hypertension - ICD9: 401.9, ICD10: I10 - Controlled - Continue current medications 9. Morbid obesity with BMI of 50.0-59.9, adult (HCC) - ICD9: 278.01, V85.43, ICD10: E66.01, Z68.43 - has been working on weight loss. 10. Leg cramps - ICD9: 729.82, ICD10: R25.2 - check labs. - MAGNESIUM BLD 11. Vision changes - ICD9: 368.9, ICD10: H53.9 - get MRI given persistent new onset headaches with associated symptoms. Red flags for re-assessment reviewed with patient in detail. - MRI BRAIN WO IVCON 12. Headache, unspecified headache type - ICD9: 784.0, ICD10: R51.9 - as above. - MRI BRAIN WO IVCON 13. Gastroesophageal reflux disease with esophagitis without hemorrhage - ICD9: 530.81, 530.10, ICD10: K21.00 -- stop diclofenac - FAMOTIDINE 20 MG TABLET 14. Open wound of right lower extremity, subsequent encounter - ICD9: V58.89, 891.0, ICD10: S81.801D - bactroban to blister. Follow course. 15. Cutaneous abscess of right lower extremity - ICD9: 682.6, ICD10: L02.415 - warm compresses. Discussed risks and benefits of new medication with the patient. Advised them to call if any side effects or questions. - Red flags for re-assessment reviewed with patient in detail. - CONSULT TO GENERAL SURGERY - CLINDAMYCIN HCL 300 MG CAPSULE 16. Cellulitis of skin - ICD9: 682.9, ICD10: L03.90 - CONSULT TO GENERAL SURGERY - CLINDAMYCIN HCL 300 MG CAPSULE Juan Miguel Arthur MD documented in this encounter [facility] 10-20-2022 Miscellaneous Notes Completed as requested. Done Keith Livingston PA-C Please print Rx Called to check on PA status was transferred to [facility] who advised spoke to patient who did not want to go through them and only local. I verified with rep that since he has medicare he has to go through DME company or no sensor will be given. Rep advised yes has to go through [employer]. Spoke to patient who is aware go through DME and get john and have to do multiple finger sticks from local pharm. Patient will call [employer] to verify account. [facility] Fax Patient called in to request start of PA for john sensor. Called pharmacy to see if rx went through since PA started. Pharmacy advised no showing PA needing done. Called patient to get member service number off card and verify bin/pcn numbers. Called [employer] did PA by phone number bolded below is to call and check if we do not hear anything. [employer] Bin [id number] [facility] [id number] Member number: [place] [id number] Fax for PA received from pharmacy for john sensor Prior Authorization has been completed online at [employer] for john, will await response. [id number] Please keep encounter open until final decision has been received and documented from insurance company. Laurel Adan MA documented in this encounter [facility] 10-14-2022 Miscellaneous Notes Please see TE that says prior auth Laurel Adan Ma Kiel Walt Florin is calling Juan Miguel Arthur MD today to request a prior authorization on Flash glucose sensor (FREESTYLE JOHN 2 SENSOR KIT) Please advise Irving when approved, as patient is completely out of these sensors Patient has been identified by name and birthdate. Duration of symptoms: N/A Person calling: self Call patient at: at home [phone] (home) [phone] (cell) Was an appointment scheduled: No Closing statement: Prior Authorization Calls: Thank you for calling [facility], your call will be returned within the next 24 hours or next business day. Marzena Diamond documented in this encounter [facility] 10-11-2022 Miscellaneous Notes Angela from [facility] calling to let Dr. Arthur and Angela Orr know that Kiel was in [facility] from 10/08-10/11 for pneumonia. She states she will be talking to the patient on . Asked if she would have pt call in to schedule a hospital follow up within the next two weeks. documented in this encounter [facility] 10-07-2022 Miscellaneous Notes 2nd call: Left VM to schedule OV w/ Dr. Calhoun. Internal referral from Kathy Colbert APRN.RESERVOIR CARETAKER - Aortic valve stenosis, etiology of cardiac valve disease unspecified; Bicuspid aortic valve documented in this encounter [facility] 10-05-2022 Miscellaneous Notes Patient has been identified by name and date of : Yes Last office visit in this department: 09/28/2022 RX INSTRUCTIONS: Patient aware RX will be sent to pharmacy. No need to notify patient. Patient phones requesting refills as follows: Requested Prescriptions Pending Prescriptions Disp Refills flash glucose sensor (FREESTYLE JOHN 2 SENSOR) kit 2 Each Sig: DMII, insulin requiring. Testing 3-5 times q day Please review and advise. Bairon Mendoza documented in this encounter [facility] 10-04-2022 Miscellaneous Notes Pt. notified. Voices understanding. Will await call from [facility] regarding valve replacement surgery. Krys Olivares RN ----- Message from Kathy Colbert APRN.[employer]ERVOIR CARETAKER sent at 10/03/2022 11:09 AM EDT ----- Please call patient and notify him of echocardiogram results. Echocardiogram reveals parameters for severe aortic stenosis. I did document some symptoms of fatigue, lower extremity swelling and dyspnea on exertion at his last office visit. Given his echo reveals his aortic stenosis is severe and he has symptoms he would qualify for referral to surgery for consideration for replacement. I placed an order for a referral. Thank you! documented in this encounter [facility] 10-03-2022 Miscellaneous Notes Please call patient and notify him of echocardiogram results. Echocardiogram reveals parameters for severe aortic stenosis. I did document some symptoms of fatigue, lower extremity swelling and dyspnea on exertion at his last office visit. Given his echo reveals his aortic stenosis is severe and he has symptoms he would qualify for referral to surgery for consideration for replacement. I placed an order for a referral. Thank you! documented in this encounter [facility] 09-28-[address] [facility] 09-28-2022 History of Presen t illness Narrative Patient presents with: Follow Up HPI: Patient presents today for office visit for follow up. Concerned today with back pain. Has been seeing Dr Sellers and had injection that didn't help. Was told to get referral from PCP to ortho. Pain is going into right hip and down right leg. Had MRI in [place] but hasn't not been given results yet. States that PT tends to make pain worse. Uses ice which helps some. Pain is in the back and goes down his leg. He said Dr. Sellers was unsure if he had back or hip issues. We have not yet seen the MRI. He would like to see the spine doc. Having issues getting in and out of the car etc. Has numbness and tingling down the leg. No new issues controlling bowel or bladder. We do not have the records from Dr Sellers. Diabetes: Has a john sensor but hasn't been wearing recently. Knows that is due for lab work. Hasn't been able to get in due to back pain. Ate today prior to visit so not sure if can have labs completed today or not? No chest pain or new shortness of breath. Did not get his echo from cardiology. Reminded him to do so. See last ov: MANISH: uses CPAP regularly. Sleeps well: sleeps better with than without. Feels rested on awakening: no but sleep issues aren't related to apnea more related to pain No daytime fatigue: Yes Snoring: No DM: Reports overall feeling well. Medication side effects: No. Home sugar check frequency/results:usually 4-5 times per day has a john sensor to use Hypoglycemic spells: No. Watching diet: Yes. Family using keto diet watching starch intake Unexpected weight loss: No. Polyuria, polydipsia: up a lot at night for urination. Vision Changes: Yes. Was told cataracts at last visit. Will set up visit. Driving less. Foot lesions or numbness or pain: trying to watch salt intake due to swelling. Asking for new order for diabetic shoes. Doesn't see podiatry . HYPERLIPIDEMIA: Patient is taking medications: Yes. Patient is watching diet: Yes. Patient denies myalgias: Yes. Patient denies gi upset: Yes Psych:emotionally is doing well. Chronic pain:still seeing Dr Sellers. GERD:no heartburn or bowel issues. CARDIO: overdue for follow up. Did have an echo last year. No chest pain. Has some chronic pedal edam. His breathing is not changed Had pfts done previously. MEDICATIONS: Current Outpatient Medications Medication Sig atorvastatin (LIPITOR) 10 mg tablet TAKE 1 TABLET BY MOUTH AT BEDTIME *FOR CHOLESTEROL dilTIAZem CD (CARDIZEM CD, CARTIA XT) 180 mg 24 hr capsule Take 1 capsule by mouth once daily. budesonide-formoterol (SYMBICORT) 80-4.5 mcg/actuation inhaler Inhale 2 Puffs as instructed twice daily. losartan-hydroCHLOROthiazide (HYZAAR) 50-12.5 mg per tablet TAKE 1 TABLET BY MOUTH DAILY pregabalin (LYRICA) 100 mg capsule Take two in the morning, one in the afternoon, and one in the evening. (total of [address] capsules daily). pantoprazole DR (PROTONIX) 40 mg tablet Take 1 tablet by mouth daily before breakfast. Take on empty stomach, 1/2 hr before meal. metFORMIN (GLUCOPHAGE) 500 mg tablet Take 1 tablet by mouth four times daily. glimepiride (AMARYL) 4 mg tablet Take 1 tablet by mouth daily with breakfast. insulin glargine (LANTUS SOLOSTAR U-100 INSULIN) 100 unit/mL (3 mL) Inject 20 Units subcutaneously daily at bedtime. carvedilol (COREG) 3.125 mg tablet Take 1 tablet by mouth twice daily. ergocalciferol 50,000 unit capsule (VITAMIN D2, DRISDOL) Take 1 capsule by mouth one time a week. dulaglutide (TRULICITY) 3 mg/0.5 mL pen injector Inject 3 mg subcutaneously one time a week. celecoxib (CELEBREX) 200 mg capsule Take 200 mg by mouth twice daily. insulin aspart U-100 (NOVOLOG FLEXPEN U-100 INSULIN) 100 unit/mL (3 mL) Per sliding scale: <200 no coverage, 201-250-2 units, 251-300-4 units, 301-350-6 units, 351-400-8 units, 400-450-10 units, call above 450. flash glucose sensor (FREESTYLE OJHN 2 SENSOR) kit DMII, insulin requiring. Testing 3-5 times q day nicotine (NICODERM CQ) 21 mg/24 hr Apply 1 Patch as directed every 24 hours. APPLY ONE(1) PATCH DAILY. nicotine (NICODERM CQ) 14 mg/24 hr Apply 1 Patch as directed every 24 hours. nicotine (NICODERM CQ) 7 mg/24 hr Apply 1 Patch as directed every 24 hours. PEG 400-propylene glycol (SYSTANE ULTRA) 0.4-0.3 % ophthalmic solution Use 1 Drop in both eyes three times daily. propylene glycoL (SYSTANE BALANCE) 0.6 % drop Use 1 Drop in both eyes daily at bedtime. insulin needles, DISPOSABLE, (PEN NEEDLE) 31 gauge x 5/16 Use one needle per dose. 4per day. dulaglutide (TRULICITY) 1.5 mg/0.5 mL pen injector Inject 3 mg subcutaneously one time a week. Inject once per week. Discard Pen After flash glucose scanning reader (FREESTYLE JOHN 2 READER) DMII, insulin requiring. Testing 3-5 times q day blood sugar diagnostic (FREESTYLE LITE STRIPS) test strip TEST BLOOD SUGAR 1-2 TIMES DAILY lancets (FREESTYLE LANCETS) 28 gauge TEST BLOOD SUGAR 1-2 TIMES DAILY albuterol HFA (PROVENTIL HFA, VENTOLIN HFA) 90 mcg/actuation inhaler Inhale 2 Puffs as instructed every 4 hours as needed for wheezing/shortness of breath. guaiFENesin (MUCINEX) 600 mg 12 hr tablet Take 2 tablets by mouth twice daily. benzonatate (TESSALON PERLES) 100 mg capsule Take 1 capsule by mouth three times daily as needed. Ammonium,Pot.and Sodium Lactates (AMLACTIN) crea Apply 1 application to affected area once daily. oxycodone myristate (XTAMPZA ER ORAL) Take 18 mg by mouth twice daily. Compression Knee Highs KNEE HIGH COMPRESSION STOCKINGS 30-40 MM. DX: EDEMA oxyCODONE-acetaminophen (PERCOCET) 5-325 mg tablet Take 1 tablet by mouth three times daily. Blood-Glucose Meter [facility] [place] 1 kit Current Facility-Administered Medications Medication Dose Route Frequency perflutren lipid microspheres 1.3 mL in NaCl (PF) 0.9% 10 mL injection (DEFINITY) INTRAVENOUS DIRECTED PRN sodium chloride 0.9 % (flush) 10 mL (BD POSIFLUSH) 10 mL INTRAVENOUS DIRECTED PRN perflutren lipid microspheres 1.3 mL in NaCl (PF) 0.9% 10 mL injection (DEFINITY) INTRAVENOUS DIRECTED PRN sodium chloride 0.9 % (flush) 10 mL (BD POSIFLUSH) 10 mL INTRAVENOUS DIRECTED PRN ALLERGIES: ALLERGIES Allergen Reactions Flonase [Fluticason* Other: See Comments Nose bleeds Lisinopril Other: See Comments Hyperkalemia Penicillins Rash PAST MEDICAL HISTORY Diagnosis Date Anxiety Atrial septal defect and mitral stenosis Bicuspid aortic valve Bipolar 1 disorder ([facility]) Chronic obstructive pulmonary disease (COPD) ([facility]) Coronary artery disease Degenerative disc disease sees Dr. Sellers Diabetic neuropathy ([facility]) DM (diabetes mellitus) ([facility]) HTN (hypertension) Hyperkalemia Hyperlipidemia Hypogonadism male LVH (left ventricular hypertrophy) Morbid obesity ([facility]) MANISH on CPAP Pain management Dr. Sellers PAST SURGICAL HISTORY Procedure Laterality Date BACK SURGERY HX fusion- lumbar CARPAL TUNNEL both PAST SURGICAL HISTORY OF left shouder surgery PAST SURGICAL HISTORY OF nasal passages clearing for sleep apnea PAST SURGICAL HISTORY OF 02/13/1981 ORIF right ankle PAST SURGICAL HISTORY OF 04/03/2013 left ulnar nerve decompression FAMILY HISTORY Problem Relation Age of Onset Diabetes Father 2011 with pneumonia other (Dementia) Father Heart Mother CABG 4. Diabetes Sister Ischemic Heart Disease Brother other (Myocardial infarc) Brother Fatal MD No Ocular Disease No Family History Social History Tobacco Use Smoking status: Every Day Packs/day: 0.75 Years: 45.00 Additional pack years: 0.00 Total pack years: 33.75 Types: Cigarettes Smokeless tobacco: Never Tobacco comments: less than a pack/day. Vaping Use Vaping Use: Never used Substance Use Topics Alcohol use: Yes Comment: Rarely. 2 beers a year Drug use: No Reviewed current medications, allergies, past medical history, surgical history, family history and social history today. REVIEW OF SYSTEMS All other reviewed and negative other than HPI. VITALS: BP 142/82 Pulse 98 Wt 131.1 kg (289 lb) SpO2 92% BMI 54.61 kg/m Last 4 Encounter Wt Readings: Date: Wt: 07/04/2022 132.9 kg (293 lb) 06/28/2022 132.9 kg (293 lb) 06/28/2022 132 kg (291 lb) 05/23/2022 131.5 kg (290 lb) PHYSICAL EXAMINATION: General appearance: in wheel chair. Skin: Skin color, texture, turgor normal, no suspicious rashes or lesions BACK: Normal curvature of spine. No spine tenderness. Straight leg test negative. Deep tendon reflexes 2+/4 at patellas. Normal lower extremity strength. Extremities: No deformities, edema, skin discoloration, clubbing or cyanosis. Good capillary refill. NEURO: no changes. ASSESSMENT/PLAN: 1. Lumbar radiculopathy - ICD9: 724.4, ICD10: M54.16 (primary diagnosis) - Red flags for re-assessment reviewed with patient in detail. - get into spine surgery. - CONSULT TO SPINE SURGERY 2. Controlled type 2 diabetes mellitus with diabetic neuropathy, with long-term current use of insulin (HCC) - ICD9: 250.60, 357.2, V58.67, ICD10: E11.40, Z79.4 - Control undetermined, due for labs 3. Bicuspid aortic valve - ICD9: 746.4, ICD10: Q23.1 - reminded to get echo. 4. Nonrheumatic aortic valve stenosis - ICD9: 424.1, ICD10: I35.0 5. LVH (left ventricular hypertrophy) - ICD9: 429.3, ICD10: I51.7 6. Primary hypertension - ICD9: 401.9, ICD10: I10 - Worsening control - increase losartan hctz. Recheck in four to six weeks. 7. Hyperlipidemia, unspecified hyperlipidemia type - ICD9: 272.4, ICD10: E78.5 - Control undetermined, due for labs - Continue current medications 8. Chronic bronchitis, simple (HCC) - ICD9: 491.0, ICD10: J41.0 - stable. 9. Sleep apnea, unspecified type - ICD9: 780.57, ICD10: G47.30 - uses cpap 10. GERD without esophagitis - ICD9: 530.81, ICD10: K21.9 - stable. 11. Type 2 diabetes mellitus with microalbuminuria, with long-term current use of insulin (HCC) - ICD9: 250.40, 791.0, V58.67, ICD10: E11.29, R80.9, Z79.4 - get sugars. 12. Morbid obesity with BMI of 50.0-59.9, adult (HCC) - ICD9: 278.01, V85.43, ICD10: E66.01, Z68.43 - stable. 13. Microalbuminuria - ICD9: 791.0, ICD10: R80.9 - remains on arb Juan Miguel Arthur MD RTO in four to six weeks for recheck. documented in this encounter [facility] 08-18-2022 Miscellaneous Notes Noted. Angela Orr APRN.RESERVOIR CARETAKER Patient returns call and provider message reviewed. Patient will check with [employer] and insurance and call back once he finds out what is needed. Joan Gallardo RN Left message for pt to return call to office. Bebeto Haro LPN I did an order; however, I don't think his last scooter came through insurance (I think he bought it used). Insurance usually has a special form or eval that needs to be completed for scooters, so he may need to check with his insurance and get any special paperwork and return for another visit. I would see if she feels comfortable completing. Patient was seen by Angela on 06/28/22 in which the need for the scooter was addressed. Would this be suffice? Allison Omalley Would need full face to face visit for that. Patient is needing an order for a new scooter because insurance will not cover just the batteries now. Patient wishes to get a new motorized scooter battery operated. Order needed to go to [facility]. Cheyenne Alarcon LPN documented in this encounter [facility] 08-12-2022 Miscellaneous Notes Patient has been identified by name and date of : Yes, Provider Jerson Date 08-12-22 Time 4:07 pm Pharmacy phones for refill(s): Requested Prescriptions Pending Prescriptions Disp Refills atorvastatin (LIPITOR) 10 mg tablet 30 tablet 5 Sig: TAKE 1 TABLET BY MOUTH AT BEDTIME *FOR CHOLESTEROL dilTIAZem CD (CARDIZEM CD, CARTIA XT) 180 mg 24 hr capsule 30 capsule 5 Sig: Take 1 capsule by mouth once daily. budesonide-formoterol (SYMBICORT) 80-4.5 mcg/actuation inhaler 1 Each 3 Sig: Inhale 2 Puffs as instructed twice daily. Date of last office visit with pcp: 06-28-22. Next appt: 08-29-22 Last 2 Encounter Wt Readings: Date: Wt: 07/04/2022 132.9 kg (293 lb) 06/28/2022 132.9 kg (293 lb) Previous labs/tests for medication: Cholesterol: HDL Cholesterol (mg/dL) Date Value 10/27/2021 42 03/20/2020 42 LDL Cholesterol (mg/dL) Date Value 10/27/2021 52 03/20/2020 50 LDL Cholesterol, Nonfasting (mg/dL) Date Value 05/03/2021 36 ALT (U/L) Date Value 05/20/2022 20 06/24/2020 24 Non HDL Cholesterol, Nonfasting (mg/dL) Date Value 06/23/2017 141 Non HDL Cholesterol (mg/dL) Date Value 10/27/2021 97 03/20/2020 94 Blood Pressure: BUN (mg/dL) Date Value 05/20/2022 17 06/24/2020 16 Sodium (mmol/L) Date Value 05/20/2022 138 06/24/2020 138 Last 1 Encounter BP Readings: Date: BP: 07/04/2022 140/72 Liver Function: ALT (U/L) Date Value 05/20/2022 20 06/24/2020 24 AST (U/L) Date Value 05/20/2022 17 06/24/2020 30 Please advise. Thank you. Scott Cabrera RN documented in this encounter [facility] 08-10-2022 Miscellaneous Notes Spouse (Shweta) calls to request compression stocking order be sent to [facility]. Pended with previous diagnosis of bilateral leg edema. Last OV: 06/28/2022 Next OV: 08/29/2022 Joan Gallardo RN documented in this encounter [facility] 08-08-2022 Miscellaneous Notes Faxed order and last OV that discussed sleep apnea to [facility] as requested. Written. I used old settings. Last OV that discussed MANISH was 05/20/22. Last study 07/21/16 Has he spoke to any of the providers about it at an ov. May need a face to face to document it. How old was his last sleep test? May need to repeat it. Patient calling with request for order for new CPAP machine/supplies be sent to [facility]. He says his machine has reached it's maximum hours. . Aware PCP out of office this week. States okay to wait for provider's return. Tia Arenas RN documented in this encounter [facility] 07-20-2022 Miscellaneous Notes Medication refill requested by Pharmacy Please review and advise. Requested Prescriptions Pending Prescriptions Disp Refills pregabalin (LYRICA) 100 mg capsule 120 capsule 2 Sig: Take two in the morning, one in the afternoon, and one in the evening. (total of 4 capsules daily). Last encounter with this provider: 06/28/2022 Next appt: 08/29/2022 Last 1 Encounter BP Readings: Date: BP: 07/04/2022 140/72 BP CONTROLLED (<130/80) Never done COLORECTAL CANCER SCREENING due on 02/13/2017 WBC (k/uL) Date Value 10/27/2021 10.41 Hemoglobin (g/dL) Date Value 10/27/2021 16.4 Platelet Count (k/uL) Date Value 10/27/2021 246 Glucose (mg/dL) Date Value 05/20/2022 156 (H) BUN (mg/dL) Date Value 05/20/2022 17 Creatinine (mg/dL) Date Value 05/20/2022 0.79 Sodium (mmol/L) Date Value 05/20/2022 138 Potassium (mmol/L) Date Value 05/20/2022 4.9 Calcium, Total (mg/dL) Date Value 05/20/2022 10.0 Alkaline Phosphatase (U/L) Date Value 05/20/2022 85 Bilirubin, Total (mg/dL) Date Value 05/20/2022 0.4 AST (U/L) Date Value 05/20/2022 17 ALT (U/L) Date Value 05/20/2022 20 Cholesterol, Total (mg/dL) Date Value 10/27/2021 139 Triglyceride (mg/dL) Date Value 10/27/2021 227 (H) TSH (mIU/L) Date Value 10/27/2021 0.858 Current Outpatient Medications on File Prior to Visit Medication Sig flash glucose sensor (FREESTYLE JOHN 2 SENSOR) kit DMII, insulin requiring. Testing 3-5 times q day nicotine (NICODERM CQ) 21 mg/24 hr Apply 1 Patch as directed every 24 hours. APPLY ONE(1) PATCH DAILY. nicotine (NICODERM CQ) 14 mg/24 hr Apply 1 Patch as directed every 24 hours. nicotine (NICODERM CQ) 7 mg/24 hr Apply 1 Patch as directed every [address] (PROTONIX) 40 mg tablet Take 1 tablet by mouth daily before breakfast. Take on empty stomach, 1/2 hr before meal. metFORMIN (GLUCOPHAGE) 500 mg tablet Take 1 tablet by mouth four times daily. glimepiride (AMARYL) 4 mg tablet Take 1 tablet by mouth daily with breakfast. insulin glargine (LANTUS SOLOSTAR U-100 INSULIN) 100 unit/mL (3 mL) Inject 20 Units subcutaneously daily at bedtime. PEG 400-propylene glycol (SYSTANE ULTRA) 0.4-0.3 % ophthalmic solution Use 1 Drop in both eyes three times daily. propylene glycoL (SYSTANE BALANCE) 0.6 % drop Use 1 Drop in both eyes daily at bedtime. losartan-hydroCHLOROthiazide (HYZAAR) 50-12.5 mg per tablet Take 1 tablet by mouth once daily. carvedilol (COREG) 3.125 mg tablet Take 1 tablet by mouth twice daily. budesonide-formoterol (SYMBICORT) 80-4.5 mcg/actuation inhaler Inhale 2 Puffs as instructed twice daily. ergocalciferol 50,000 unit capsule (VITAMIN D2, DRISDOL) Take 1 capsule by mouth one time a week. pregabalin (LYRICA) 100 mg capsule Take two in the morning, one in the afternoon, and one in the evening. (total of 4 capsules daily). insulin needles, DISPOSABLE, (PEN NEEDLE) 31 gauge x 5/16 Use one needle per dose. 4per day. dulaglutide (TRULICITY) 1.5 mg/0.5 mL pen injector Inject 3 mg subcutaneously one time a week. Inject once per week. Discard Pen After atorvastatin (LIPITOR) 10 mg tablet TAKE 1 TABLET BY MOUTH AT BEDTIME *FOR CHOLESTEROL dilTIAZem CD (CARDIZEM CD, CARTIA XT) 180 mg 24 hr capsule Take 1 capsule by mouth once daily. dulaglutide (TRULICITY) 3 mg/0.5 mL pen injector Inject 3 mg subcutaneously one time a week. flash glucose scanning reader ([employer] Health[employer]YLE JOHN 2 READER) DMII, insulin requiring. Testing 3-5 times q day celecoxib (CELEBREX) 200 mg capsule Take 200 mg by mouth twice daily. insulin aspart U-100 (NOVOLOG FLEXPEN U-100 INSULIN) 100 unit/mL (3 mL) Per sliding scale: <200 no coverage, 201-250-2 units, 251-300-4 units, 301-350-6 units, 351-400-8 units, 400-450-10 units, call above 450. blood sugar diagnostic (FREESTYLE LITE STRIPS) test strip TEST BLOOD SUGAR 1-2 TIMES DAILY lancets (FREESTYLE LANCETS) 28 gauge TEST BLOOD SUGAR 1-2 TIMES DAILY albuterol HFA (PROVENTIL HFA, VENTOLIN HFA) 90 mcg/actuation inhaler Inhale 2 Puffs as instructed every 4 hours as needed for wheezing/shortness of breath. guaiFENesin (MUCINEX) 600 mg 12 hr tablet Take 2 tablets by mouth twice daily. benzonatate (TESSALON PERLES) 100 mg capsule Take 1 capsule by mouth three times daily as needed. Ammonium,Pot.and Sodium Lactates (AMLACTIN) crea Apply 1 application to affected area once daily. oxycodone myristate (XTAMPZA ER ORAL) Take 18 mg by mouth twice daily. Compression Knee Highs KNEE HIGH COMPRESSION STOCKINGS 30-40 MM. DX: EDEMA oxyCODONE-acetaminophen (PERCOCET) 5-325 mg tablet Take 1 tablet by mouth three times daily. Blood-Glucose Meter [facility] [place] 1 kit Janki Vale RN documented in this encounter [facility] 07-14-[address] [facility] 07-14-[address] [facility] 07-14-2022 History of Presen t illness Narrative 1. Type 2 diabetes mellitus without retinopathy (HCC) No retinopathy Refraction continues to be unstable but vision has improved Will recheck in 6 weeks 2. Combined forms of age-related cataract of both eyes Mild-monitor 3. Dry eye syndrome of bilateral lacrimal glands Continue artificial tears 2-3 times daily and balance nightly 4. Glaucoma suspect of both eyes IOP: 22/19 today OCT normal (-) fam hx Plan to do 24-2 in 6 weeks along with refraction and IOP check Vicenta Powers, OD July 14, 2022 3:10 PM documented in this encounter [facility] 07-14-2022 History of Presen t illness Narrative Radiology Service Progress Note PATIENT NAME: Kiel Catherine DATE OF SERVICE: July 14, 2022 TIME: 3:38 PM PATIENT IDENTITY VERIFICATION COMPLETED USING TWO (2) IDENTIFIERS: Name and Date of confirmed by patient verbally. FALL SCREENING: Has the patient had 2 falls in the last year or 1 fall with injury or currently using an Ambulatory Assistive Device (Walker, Cane, Wheelchair, Crutches, etc.)? No PATIENT GENDER DATA: Male PATIENT RELEVANT IMPLANT DATA REVIEWED: Yes RADIOLOGY DEPARTMENT: CT; Exam(s) Completed: Chest PERIPHERAL IV DATA: Not applicable SIGNED BY: RT Felix(R) July 14, 2022 3:38 PM documented in this encounter [facility] 07-04-[address] [facility] 07-04-[address] [facility] 07-04-[address] [facility] 06-28-[address] [facility] 06-28-[address] [facility] 06-28-2022 Instructions Angela Orr APRN.TODD - 06/28/2022 3:43 PM EDT Continue the same blood pressure medication. Check with insurance re: shingrix vaccine. Let us know about the scooter battery. Recheck in 2 months. documented in this encounter [facility] 06-28-2022 History of Presen t illness Narrative This is a 61 year old male who presents today with: Patient presents with: Recheck: BP Wanting Shingles vaccine Wanting RX for scooter battery HISTORY OF PRESENT ILLNESS: Kiel Catherine is a 61 year old male. Patient presents with: Recheck: BP Wanting Shingles vaccine Wanting RX for scooter battery HTN: Patient is compliant with meds Yes Monitors bp at home: No. Denies side effects: Yes. Chest pain: No. Dyspnea: No. Edema: yes Palpitations: No. Syncope: No. Headache: No. Dizziness: No. Needs new scooter battery. He bought it used 2021. Refers that the battery is not longer effective. He uses the scooter when he goes out. Needs it for outside mobility (groceries shopping). Refers that he doesn't really need it inside the house. Refers that he cannot use a walker because of previous left arm shoulder (rotator cuff, elbow, and wrist surgeries). Refers that he cannot propel a wheelchair because of nerve damage in the arm. Chronic back and hip pain and follows with pain management. He has a handicap plaquard. PAST MEDICAL HISTORY: PAST MEDICAL HISTORY Diagnosis Date Anxiety Atrial septal defect and mitral stenosis Bicuspid aortic valve Bipolar 1 disorder (HCC) Chronic obstructive pulmonary disease (COPD) ([facility]) Coronary artery disease Degenerative disc disease sees Dr. Sellers Diabetic neuropathy (HCC) DM (diabetes mellitus) (HCC) HTN (hypertension) Hyperkalemia Hyperlipidemia Hypogonadism male LVH (left ventricular hypertrophy) Morbid obesity (HCC) MANISH on CPAP Pain management Dr. Sellers PAST SURGICAL HISTORY Procedure Laterality Date BACK SURGERY HX fusion- lumbar CARPAL TUNNEL both PAST SURGICAL HISTORY OF left shouder surgery PAST SURGICAL HISTORY OF nasal passages clearing for sleep apnea PAST SURGICAL HISTORY OF 02/13/1981 ORIF right ankle PAST SURGICAL HISTORY OF 04/03/2013 left ulnar nerve decompression ALLERGIES Flonase [Fluticasone Propionate], Lisinopril, and Penicillins MEDICATIONS Current Outpatient Medications Medication Sig nicotine (NICODERM CQ) 21 mg/24 hr Apply 1 Patch as directed every 24 hours. APPLY ONE(1) PATCH DAILY. nicotine (NICODERM CQ) 14 mg/24 hr Apply 1 Patch as directed every 24 hours. nicotine (NICODERM CQ) 7 mg/24 hr Apply 1 Patch as directed every [address] (PROTONIX) 40 mg tablet Take 1 tablet by mouth daily before breakfast. Take on empty stomach, 1/2 hr before meal. metFORMIN (GLUCOPHAGE) 500 mg tablet Take 1 tablet by mouth four times daily. glimepiride (AMARYL) 4 mg tablet Take 1 tablet by mouth daily with breakfast. insulin glargine (LANTUS SOLOSTAR U-100 INSULIN) 100 unit/mL (3 mL) Inject 20 Units subcutaneously daily at bedtime. PEG 400-propylene glycol (SYSTANE ULTRA) 0.4-0.3 % ophthalmic solution Use 1 Drop in both eyes three times daily. propylene glycoL (SYSTANE BALANCE) 0.6 % drop Use 1 Drop in both eyes daily at bedtime. losartan-hydroCHLOROthiazide (HYZAAR) 50-12.5 mg per tablet Take 1 tablet by mouth once daily. carvedilol (COREG) 3.125 mg tablet Take 1 tablet by mouth twice daily. budesonide-formoterol (SYMBICORT) 80-4.5 mcg/actuation inhaler Inhale 2 Puffs as instructed twice daily. ergocalciferol 50,000 unit capsule (VITAMIN D2, DRISDOL) Take 1 capsule by mouth one time a week. pregabalin (LYRICA) 100 mg capsule Take two in the morning, one in the afternoon, and one in the evening. (total of 4 capsules daily). insulin needles, DISPOSABLE, (PEN NEEDLE) 31 gauge x /16 Use one needle per dose. 4per day. atorvastatin (LIPITOR) 10 mg tablet TAKE 1 TABLET BY MOUTH AT BEDTIME *FOR CHOLESTEROL dilTIAZem CD (CARDIZEM CD, CARTIA XT) 180 mg 24 hr capsule Take 1 capsule by mouth once daily. dulaglutide (TRULICITY) 3 mg/0.5 mL pen injector Inject 3 mg subcutaneously one time a week. flash glucose scanning reader (FREESTYLE JOHN 2 READER) DMII, insulin requiring. Testing 3-5 times q day flash glucose sensor (FREESTYLE JOHN 2 SENSOR) kit DMII, insulin requiring. Testing 3-5 times q day celecoxib (CELEBREX) 200 mg capsule Take 200 mg by mouth twice daily. insulin aspart U-100 (NOVOLOG FLEXPEN U-100 INSULIN) 100 unit/mL (3 mL) Per sliding scale: <200 no coverage, 201-250-2 units, 251-300-4 units, 301-350-6 units, 351-400-8 units, 400-450-10 units, call above 450. blood sugar diagnostic (FREESTYLE LITE STRIPS) test strip TEST BLOOD SUGAR 1-2 TIMES DAILY lancets (FREESTYLE LANCETS) 28 gauge TEST BLOOD SUGAR 1-2 TIMES DAILY albuterol HFA (PROVENTIL HFA, VENTOLIN HFA) 90 mcg/actuation inhaler Inhale 2 Puffs as instructed every 4 hours as needed for wheezing/shortness of breath. guaiFENesin (MUCINEX) 600 mg 12 hr tablet Take 2 tablets by mouth twice daily. benzonatate (TESSALON PERLES) 100 mg capsule Take 1 capsule by mouth three times daily as needed. Ammonium,Pot.and Sodium Lactates (AMLACTIN) crea Apply 1 application to affected area once daily. oxycodone myristate (XTAMPZA ER ORAL) Take 18 mg by mouth twice daily. Compression Knee Highs KNEE HIGH COMPRESSION STOCKINGS 30-40 MM. DX: EDEMA oxyCODONE-acetaminophen (PERCOCET) 5-325 mg tablet Take 1 tablet by mouth three times daily. Blood-Glucose Meter [facility] [place] 1 kit dulaglutide (TRULICITY) 1.5 mg/0.5 mL pen injector Inject 3 mg subcutaneously one time a week. Inject once per week. Discard Pen After Current Facility-Administered Medications Medication Dose Route Frequency perflutren lipid microspheres 1.3 mL in NaCl (PF) 0.9% 10 mL injection (DEFINITY) INTRAVENOUS DIRECTED PRN sodium chloride 0.9 % (flush) 10 mL (BD POSIFLUSH) 10 mL INTRAVENOUS DIRECTED PRN perflutren lipid microspheres 1.3 mL in NaCl (PF) 0.9% 10 mL injection (DEFINITY) INTRAVENOUS DIRECTED PRN sodium chloride 0.9 % (flush) 10 mL (BD POSIFLUSH) 10 mL INTRAVENOUS DIRECTED PRN FAMILY HISTORY Problem Relation Age of Onset Heart Mother CABG 4. Diabetes Father 2011 with pneumonia other (Dementia) Father Diabetes Sister Ischemic Heart Disease Brother other (Myocardial infarc) Brother Fatal MD Social History Tobacco Use Smoking status: Every Day Packs/day: 0.75 Years: 45.00 Pack years: 33.75 Types: Cigarettes Smokeless tobacco: Never Tobacco comments: less than a pack/day. Substance Use Topics Alcohol use: Yes Comment: Rarely. 2 beers a year Drug use: No EXAM: BP 136/72 Pulse 88 Resp 20 Wt 132.9 kg (293 lb) SpO2 97% BMI 55.36 kg/m PHYSICAL EXAM: General Appearance: Well appearing, alert, in no acute distress, well-hydrated, well nourished.. Skin: Skin color, texture, turgor normal, no suspicious rashes or lesions. Head: Normocephalic, no masses, lesions, tenderness or abnormalities. Eyes: Anicteric sclera. Extraocular movements are intact. . Lungs: Lungs clear to auscultation. No wheezing, rhonchi, rales.. Heart: RRR without gallop, or rubs. + murmur. No ectopy. Extremities: No deformities, trace edema, skin discoloration, clubbing or cyanosis. Good capillary refill. . ASSESSMENT/PLAN: 1. Primary hypertension - ICD9: 401.9, ICD10: I10 (primary diagnosis) - fair control - Continue current medication(s) - Recommended regular aerobic exercise. - Recommend home blood pressure monitoring, to bring results in on next visit - Goal of BP <130/80 2. Controlled type 2 diabetes mellitus with diabetic neuropathy, with long-term current use of insulin (HCC) - ICD9: 250.60, 357.2, V58.67, ICD10: E11.40, Z79.4 - Uncontrolled - Continue current medications - HGB A1C 3. Chronic back pain, unspecified back location, unspecified back pain laterality - ICD9: 724.5, 338.29, ICD10: M54.9, G89.29 - DME SUPPLY OR ACCESSORY, NOS Discussed treatment plan and patient voices understanding. Patient's questions answered appropriately. Medications and potential side effects were discussed and patient voices understanding. Return to the office as scheduled or as needed for worsening/no improvement. Angela Orr APRN.TODD documented in this encounter [facility] 06-24-2022 Miscellaneous Notes Patient has been identified by name and date of : Yes Last office visit in this department: Visit date not found RX INSTRUCTIONS: Pharmacy initiated this request. No need to notify patient. Patient phones requesting refills as follows: Requested Prescriptions Pending Prescriptions Disp Refills pantoprazole DR (PROTONIX) 40 mg tablet 30 tablet 11 Sig: Take 1 tablet by mouth daily before breakfast. Take on empty stomach, 1/2 hr before meal. metFORMIN (GLUCOPHAGE) 500 mg tablet 120 tablet 11 Sig: Take 1 tablet by mouth four times daily. glimepiride (AMARYL) 4 mg tablet 30 tablet 11 Sig: Take 1 tablet by mouth daily with breakfast. Please review and advise. Janki Granger documented in this encounter [facility] 05-31-[address] [facility] 05-31-2022 History of Presen t illness Narrative 1. Type 2 diabetes mellitus without retinopathy (HCC) Risk of diabetic changes and vision loss can be minimized by tight control of blood sugar, blood pressure, and cholesterol levels. Educated patient to continue care with primary care doctor and/or professional benefits sales consultant to maintain optimum levels as they are important to avoid ocular complications. Encouraged patient to call the office immediately with any changes to vision or visual concerns. Advised to not wait until the next scheduled exam. Patient notes that vision has been fluctuating which could be correlated to poorly controlled A1c -A1c has improved recently 2. Combined forms of age-related cataract of both eyes Mild visual significance OD>OS Monitor 3. Dry eye syndrome of bilateral lacrimal glands Recommended Systane balance nightly and artificial tears 2-3 times daily-sent to pharmacy 4. Glaucoma suspect of both eyes IOP: 23/20 (-) fam hx Normal OCT Monitor Follow-up in 6 weeks for IOP check and refraction check (if stable- can finalize) Vicenta Powers, OD May 31, 2022 2:56 PM documented in this encounter [facility] 05-30-2022 Miscellaneous Notes Left detailed message for patient. Let him know sugars are much better. Urine still shows protein but is stable. Keep watching his diet. documented in this encounter [facility] 05-24-2022 Miscellaneous Notes Patient informed and verbalized understanding. Allison Omalley Sugar is much better. Remind him he has a urine for microglobulin ordered that should have veen done with the labs. Please do documented in this encounter [facility] 05-24-[address] [facility] 05-23-[address] [facility] 05-23-2022 Instructions Kathy Colbert APRN.RESERVOIR CARETAKER - 05/23/2022 10:55 AM EDT Patient information: Aortic stenosis (The Basics) What is aortic stenosis? -- Aortic stenosis is a condition in which one of the valves in the heart, called the aortic valve, doesn't open fully. The heart valves keep blood flowing in only one direction. When the heart valves work normally, they open all the way to let blood flow through them. Blood flows from a chamber of the heart called the left ventricle, through the aortic valve, into a large blood vessel called the aorta. The aorta carries blood to the rest of the body. In aortic stenosis, the aortic valve gets stuck and does not open fully. This makes the valve opening narrow. When this happens: ?Not as much blood can flow out of the heart to the rest of the body. ?The heart has to work much harder than usual to pump blood to the rest of the body. Over time, this can cause heart problems. Aortic stenosis usually happens in adults. But some people are born with aortic stenosis. What are the symptoms of aortic stenosis? -- Early on, most people have no symptoms. They usually find out they have aortic stenosis after their doctor or nurse hears a heart murmur on a routine exam. A heart murmur is an extra sound in the heartbeat that doctors or nurses hear when they listen to the heart with a stethoscope. When people do have symptoms, they can have: ?Shortness of breath ?Dizziness or fainting ?Chest pain These symptoms usually happen with physical activity. Let your doctor know if you have any of these symptoms. Is there a test for aortic stenosis? -- Yes. To check for aortic stenosis and see how severe it is, your doctor might order an echocardiogram (or echo ). This test uses sound waves to create a picture of your heart as it beats. It shows the size of the heart chambers, how well the heart is pumping, and how well the heart valves are working. If you have aortic stenosis, your doctor might repeat this test over time to see if your condition changes. To get more information about your heart, your doctor might order a test called cardiac catheterization, or cardiac cath. For this, the doctor puts a thin tube into a blood vessel in your leg or arm. Then he or she moves the tube up to your heart. When the tube is in your heart or blood vessels, he or she will take measurements. The doctor might also put a dye that shows up on an X-ray into the tube. It can show if any of the arteries in your heart are narrowed or blocked. This part of the test is called coronary angiography. Your doctor might order a test called an electrocardiogram (ECG or EKG). This test measures the electrical activity in your heart. Some people with aortic stenosis will also have a chest X-ray. A chest X-ray can show the size and shape of your heart. It can also show changes in your lungs from aortic stenosis or other diseases. How is aortic stenosis treated? -- Treatment depends on your symptoms and how severe your aortic stenosis is. If your aortic stenosis is mild or you have little or no symptoms, you might not need any treatment. But your doctor will follow you to see if your aortic stenosis gets worse or you start to have symptoms. If your aortic stenosis is severe or you have a lot of symptoms, you will likely need treatment. Treatment can include: ?Surgery to replace your aortic valve - During surgery, the doctor will remove your narrowed valve and replace it with a valve that opens normally. This new valve can be made from metal or from tissue from a pig, cow, or horse. In some cases, a new valve comes from another person. Your doctor will talk with you about the benefits and downsides of each option. ?A procedure to put in a new aortic valve without surgery - This is a type of procedure that doctors can do to treat people who can't have valve surgery. It can also be an option for people who are at high risk for problems if they have valve surgery. ?A procedure to open the aortic valve - For this procedure, a doctor inflates a balloon in the narrowed aortic valve to try to open it. This procedure is used in children and young adults, because it is helpful in these people. This procedure is usually not as helpful in older adults. ?Medicines - There are no medicines to treat aortic stenosis. But if you have other heart conditions besides aortic stenosis, your doctor might prescribe medicines to treat those conditions. He or she will also make sure your blood pressure and cholesterol level are under control. Can I play sports? -- If your aortic stenosis is mild or you have little or no symptoms, you can probably play sports. But if your aortic stenosis or symptoms are more serious, your doctor might recommend that you limit your physical activity. What if I want to get ? -- If you want to get , talk with your doctor or nurse. Depending on your aortic stenosis and symptoms, he or she might recommend treating your aortic stenosis before you get . All topics are updated as new evidence becomes available and our peer review process is complete. The content on the [employer] website is not intended nor recommended as a substitute for medical advice, diagnosis, or treatment. Always seek the advice of your own physician or other qualified health family day care provider regarding any medical questions or conditions.. 2016 [address] [employer]. All rights reserved. Topic 59436 Version 5.0 documented in this encounter [facility] 05-23-2022 History of Presen t illness Narrative Images from the original note were not included. [facility] Cardiology ([facility]) [address] [facility] [id number] OUTPATIENT VISIT May 23, 2022 10:30 AM Chief Complaint Patient presents with: Established Patient Follow-Up History of Present Illness: Kiel Catherine is a 61 year old male who presents for cardiology evaluation. He has a PMHx of bicuspid aortic valve with moderate stenosis on most recent echocardiogram, HTN, HLD, DM2, LVH, diastolic dysfunction, COPD, obesity, MANISH (CPAP compliant). He was previously evaluated by Dr. Montgomery in [place]. He is seen today to establish cardiology care closer to home. Echocardiogram ordered by his primary care physician in October was not completed therefore I do not have a recent assessment of his aortic valve disease. Most recent echocardiogram was from 2019. Today, he explains to me his worsening shortness of breath and fatigue. He does have some mild lower extremity swelling. He denies overt lightheadedness and chest discomfort. He is limited in activity by back pain. He experiences occasional palpitations he describes as skipped beats. We reviewed cardiac risk factors and modifications. He reports taking medications as prescribed. His blood pressure is suboptimal in office today he is agreeable to medication adjustments. He is agreeable to echocardiogram for further evaluation. He understands if aortic valve stenosis is severe he may be referred for a surgical approach evaluation. PAST MEDICAL HISTORY Diagnosis Date Anxiety Atrial septal defect and mitral stenosis Bicuspid aortic valve Bipolar 1 disorder ([facility]) Chronic obstructive pulmonary disease (COPD) ([facility]) Coronary artery disease Degenerative disc disease sees Dr. Sellers Diabetic neuropathy ([facility]) DM (diabetes mellitus) ([facility]) HTN (hypertension) Hyperkalemia Hyperlipidemia Hypogonadism male LVH (left ventricular hypertrophy) Morbid obesity (HCC) MANISH on CPAP Pain management Dr. Sellers PAST SURGICAL HISTORY Procedure Laterality Date BACK SURGERY HX fusion- lumbar CARPAL TUNNEL both PAST SURGICAL HISTORY OF left shouder surgery PAST SURGICAL HISTORY OF nasal passages clearing for sleep apnea PAST SURGICAL HISTORY OF 02/13/1981 ORIF right ankle PAST SURGICAL HISTORY OF 04/03/2013 left ulnar nerve decompression FAMILY HISTORY Problem Relation Age of Onset Heart Mother CABG 4. Diabetes Father 2011 with pneumonia other (Dementia) Father Diabetes Sister Ischemic Heart Disease Brother other (Myocardial infarc) Brother Fatal MD Social History Tobacco Use Smoking status: Every Day Packs/day: 0.75 Years: 30.00 Pack years: 22.50 Types: Cigarettes Smokeless tobacco: Never Tobacco comments: less than a pack/day. Substance Use Topics Alcohol use: Yes Comment: Rarely. 2 beers a year Drug use: No Cardiac Risk Factors: age (male over 45, female over 55), hyperlipidemia, history of smoking, obesity, diabetes, hypertension ALLERGIES Allergen Reactions Flonase [Fluticason* Other: See Comments Nose bleeds Lisinopril Other: See Comments Hyperkalemia Penicillins Rash Medications: Current Outpatient Medications Medication Sig Dispense Refill carvedilol (COREG) 3.125 mg tablet Take 1 tablet by mouth twice daily. 60 tablet 11 budesonide-formoterol (SYMBICORT) 80-4.5 mcg/actuation inhaler Inhale 2 Puffs as instructed twice daily. 1 Each 3 ergocalciferol 50,000 unit capsule (VITAMIN D2, DRISDOL) Take 1 capsule by mouth one time a week. 4 capsule 11 pregabalin (LYRICA) 100 mg capsule Take two in the morning, one in the afternoon, and one in the evening. (total of 4 capsules daily). 120 capsule 2 insulin needles, DISPOSABLE, (PEN NEEDLE) 31 gauge x 5/16 Use one needle per dose. 4per day. 100 Each 11 atorvastatin (LIPITOR) 10 mg tablet TAKE 1 TABLET BY MOUTH AT BEDTIME *FOR CHOLESTEROL 30 tablet 5 dilTIAZem CD (CARDIZEM CD, CARTIA XT) 180 mg 24 hr capsule Take 1 capsule by mouth once daily. 30 capsule 5 insulin glargine (LANTUS SOLOSTAR U-100 INSULIN) 100 unit/mL (3 mL) Inject 20 Units subcutaneously daily at bedtime. 6 Each 1 dulaglutide (TRULICITY) 3 mg/0.5 mL pen injector Inject 3 mg subcutaneously one time a week. 2 mL 11 flash glucose scanning reader (FREESTYLE JOHN 2 READER) DMII, insulin requiring. Testing 3-5 times q day 1 Each 0 flash glucose sensor (FREESTYLE JOHN 2 SENSOR) kit DMII, insulin requiring. Testing 3-5 times q day 2 Each 11 celecoxib (CELEBREX) 200 mg capsule Take 200 mg by mouth twice daily. glimepiride (AMARYL) 4 mg tablet Take 1 tablet by mouth daily with breakfast. 30 tablet 11 metFORMIN (GLUCOPHAGE) 500 mg tablet Take 1 tablet by mouth four times daily. [address] (PROTONIX) 40 mg tablet Take 1 tablet by mouth daily before breakfast. Take on empty stomach, 1/2 hr before meal. 30 tablet 11 insulin aspart U-100 (NOVOLOG FLEXPEN U-100 INSULIN) 100 unit/mL (3 mL) Per sliding scale: <200 no coverage, 201-250-2 units, 251-300-4 units, 301-350-6 units, 351-400-8 units, 400-450-10 units, call above 450. 5 Pen 11 blood sugar diagnostic (FREESTYLE LITE STRIPS) test strip TEST BLOOD SUGAR 1-2 TIMES DAILY 100 Strip 11 lancets (FREESTYLE LANCETS) 28 gauge TEST BLOOD SUGAR 1-2 TIMES DAILY 100 Each 11 albuterol HFA (PROVENTIL HFA, VENTOLIN HFA) 90 mcg/actuation inhaler Inhale 2 Puffs as instructed every 4 hours as needed for wheezing/shortness of breath. 1 Each 0 guaiFENesin (MUCINEX) 600 mg 12 hr tablet Take 2 tablets by mouth twice daily. 24 tablet 0 Ammonium,Pot.and Sodium Lactates (AMLACTIN) crea Apply 1 application to affected area once daily. 1 Tube 11 oxycodone myristate (XTAMPZA ER ORAL) Take 18 mg by mouth twice daily. Compression Knee Highs KNEE HIGH COMPRESSION STOCKINGS 30-40 MM. DX: EDEMA 1 Each 3 oxyCODONE-acetaminophen (PERCOCET) 5-325 mg tablet Take 1 tablet by mouth three times daily. 0 Blood[place]Gl[place] [facility] [place] 1 kit 1 Each 0 losartan-hydroCHLOROthiazide (HYZAAR) 50-12.5 mg per tablet Take 1 tablet by mouth once daily. 90 tablet 0 dulaglutide (TRULICITY) 1.5 mg/0.5 mL pen injector Inject 3 mg subcutaneously one time a week. Inject once per week. Discard Pen After 4 mL 0 benzonatate (TESSALON PERLES) 100 mg capsule Take 1 capsule by mouth three times daily as needed. (Patient not taking: Reported on 10/18/2021) 30 capsule 0 Current Facility-Administered Medications Medication Dose Route Frequency Provider Last Rate Last Admin perflutren lipid microspheres 1.3 mL in NaCl (PF) 0.9% 10 mL injection (DEFINITY) INTRAVENOUS DIRECTED PRN Kathy Colbert APRN.RESERVOIR CARETAKER sodium chloride 0.9 % (flush) 10 mL (BD POSIFLUSH) 10 mL INTRAVENOUS DIRECTED PRN Kathy Colbert APRN.RESERVOIR CARETAKER perflutren lipid microspheres 1.3 mL in NaCl (PF) 0.9% 10 mL injection (DEFINITY) INTRAVENOUS DIRECTED PRDoris Livingston PA-C sodium chloride 0.9 % (flush) 10 mL (BD POSIFLUSH) 10 mL INTRAVENOUS DIRECTED PRN Scott Livingston PA-C Review of Systems Constitutional: Positive for malaise/fatigue. Negative for chills, diaphoresis, fever and weight loss. HENT: Negative for congestion, ear pain, nosebleeds, sinus pain and sore throat. Eyes: Negative for pain. Respiratory: Positive for shortness of breath. Negative for cough and wheezing. Cardiovascular: Positive for palpitations and leg swelling. Negative for chest pain. Gastrointestinal: Negative for abdominal pain, blood in stool and melena. Genitourinary: Negative for hematuria. Musculoskeletal: Negative for falls. Neurological: Negative for dizziness, tingling, sensory change, speech change, focal weakness, loss of consciousness, weakness and headaches. Endo/Heme/Allergies: Does not bruise/bleed easily. Psychiatric/Behavioral: Negative for depression, memory loss and suicidal ideas. The patient is not nervous/anxious and does not have insomnia. Physical Examination: Vitals:BP 145/80 Pulse 88 Wt 290 lb (131.5kg) Last 2 Encounter Wt Readings: Date: Wt: 05/20/2022 291 lb (132 kg) 10/22/2021 284 lb (128.8 kg) Physical Exam HENT: Head: Normocephalic. Eyes: Pupils: Pupils are equal, round, and reactive to light. Cardiovascular: Rate and Rhythm: Normal rate and regular rhythm. Pulses: Radial pulses are 2+ on the right side and 2+ on the left side. Dorsalis pedis pulses are 2+ on the right side and 2+ on the left side. Heart sounds: S1 normal and S2 normal. Murmur heard. Systolic murmur is present. Pulmonary: Effort: Pulmonary effort is normal. No accessory muscle usage or respiratory distress. Breath sounds: Normal breath sounds. Abdominal: General: Bowel sounds are normal. Palpations: Abdomen is soft. Musculoskeletal: General: Normal range of motion. Cervical back: Normal range of motion. Right lower le+ Pitting Edema present. Left lower le+ Pitting Edema present. Skin: General: Skin is warm and dry. Neurological: Mental Status: He is alert and oriented to person, place, and time. Gait: Gait is intact. Psychiatric: Mood and Affect: Affect normal. Cognition and Memory: Memory normal. Judgment: Judgment normal. Most Recent Cardiac Testing Echo 07/2018 CONCLUSIONS: - Technically difficult exam due to body habitus. - Exam indication: Aortic valve disorder - The left ventricle is normal in size. Grade I left ventricular diastolic dysfunction. Unable to assess regional wall motion d/t suboptimal images. - There is moderate aortic valve stenosis caused by calcified valve. AV area is 1.07 cm (0.44 cm /m ) by continuity, VTI. The peak gradient is 50 mmHg, the mean gradient is 35 mmHg and the dimensionless valve index is 0.25. - Definity contrast could not be administered d/t unavailability of staff. - Overall LV function on limited views appears grossly normal. - Exam was compared with the prior echocardiographic exam performed on 11/01/2016. There is now evidence of moderate aortic stenosis. Assessment and Plan: Bicuspid aortic valve with stenosis -ECHO on 08/10/2018 showing peak and mean gradients of 50 & 35 mmHg, with an MARY of 1.07 cm , and DI of 025 indicating that the patient is with moderate aortic valve stenosis -LVEF is 60% -symptoms of MAN, fatigue, LE swelling -NYHA class 2 -check BNP with next routine lab draw Has multiple risk factors for CAD. If aortic stenosis is severe he will need an ischemic evaluation prior to replacement consideration HTN -145/80. Change HCTZ 25 mg to Hyzaar 50-12.5 mg -Continue current medication(s) -Encouraged dietary sodium restriction/DASH diet -Recommended regular aerobic exercise. -Recommend home blood pressure monitoring, to bring results in on next visit -Discussed need and benefit for weight loss. -Goal of BP <130/80 HLD -lipid panel October 2021 LDL 52 -continue Lipitor 10 mg Diastolic dysfunction -EF 60%, Grade I left ventricular diastolic dysfunction -compensate on exam -repeat echocardiogram pendsanjeev g -recommended heart healthy, 2g low sodium diet, daily weights DM2 -A1C May 2022 7.4 -insulin requiring Obesity -lifestyle modifications -encouraged a heart healthy diet, routine exercise and weight loss MANISH -CPAP compliant Tobacco use -Encouraged cessation -Physiologic and physical aspects of tobacco addiction as well as strategies for quitting were discussed. -Counseling was given focusing on the harmful effects of this addiction especially given the patient's medical condition(s) which will be worsened because of the chemicals in tobacco. Follow up in 4-6 months. Patient to call with any issues or concerns prior to then. Electronically signed by Kathy Colbert APRN.CNP on May 23, 2022, 9:18 AM documented in this encounter [facility] 05-20-[address] [facility] 05-20-2022 History of Presen t illness Narrative Patient presents with: Diabetes HPI: Patient presents today for office visit for check up with me. Overdue. I last saw him physically in 2019 myself. MANISH: uses CPAP regularly. Sleeps well: sleeps better with than without. Feels rested on awakening: no but sleep issues aren't related to apnea more related to pain No daytime fatigue: Yes Snoring: No DM: Reports overall feeling well. Medication side effects: No. Home sugar check frequency/results:usually 4-5 times per day has a john sensor to use Hypoglycemic spells: No. Watching diet: Yes. Family using keto diet watching starch intake Unexpected weight loss: No. Polyuria, polydipsia: up a lot at night for urination. Vision Changes: Yes. Was told cataracts at last visit. Will set up visit. Driving less. Foot lesions or numbness or pain: trying to watch salt intake due to swelling. Asking for new order for diabetic shoes. Doesn't see podiatry . HYPERLIPIDEMIA: Patient is taking medications: Yes. Patient is watching diet: Yes. Patient denies myalgias: Yes. Patient denies gi upset: Yes Psych:emotionally is doing well. Chronic pain:still seeing Dr Sellers. GERD:no heartburn or bowel issues. CARDIO: overdue for follow up. Did have an echo last year. No chest pain. Has some chronic pedal edam. His breathing is not changed Had pfts done previously. MEDICATIONS: Current Outpatient Medications Medication Sig budesonide-formoterol (SYMBICORT) 80-4.5 mcg/actuation inhaler Inhale 2 Puffs as instructed twice daily. ergocalciferol 50,000 unit capsule (VITAMIN D2, DRISDOL) Take 1 capsule by mouth one time a week. pregabalin (LYRICA) 100 mg capsule Take two in the morning, one in the afternoon, and one in the evening. (total of 4 capsules daily). atorvastatin (LIPITOR) 10 mg tablet TAKE 1 TABLET BY MOUTH AT BEDTIME *FOR CHOLESTEROL dilTIAZem CD (CARDIZEM CD, CARTIA XT) 180 mg 24 hr capsule Take 1 capsule by mouth once daily. hydroCHLOROthiazide (HYDRODIURIL, ESIDRIX) 25 mg tablet Take 1 tablet by mouth once daily. insulin glargine (LANTUS SOLOSTAR U-100 INSULIN) 100 unit/mL (3 mL) Inject 20 Units subcutaneously daily at bedtime. dulaglutide (TRULICITY) 3 mg/0.5 mL pen injector Inject 3 mg subcutaneously one time a week. celecoxib (CELEBREX) 200 mg capsule Take 200 mg by mouth twice daily. glimepiride (AMARYL) 4 mg tablet Take 1 tablet by mouth daily with breakfast. metFORMIN (GLUCOPHAGE) 500 mg tablet Take 1 tablet by mouth four times daily. pantoprazole DR (PROTONIX) 40 mg tablet Take 1 tablet by mouth daily before breakfast. Take on empty stomach, 1/2 hr before meal. insulin aspart U-100 (NOVOLOG FLEXPEN U-100 INSULIN) 100 unit/mL (3 mL) Per sliding scale: <200 no coverage, 201-250-2 units, 251-300-4 units, 301-350-6 units, 351-400-8 units, 400-450-10 units, call above 450. albuterol HFA (PROVENTIL HFA, VENTOLIN HFA) 90 mcg/actuation inhaler Inhale 2 Puffs as instructed every 4 hours as needed for wheezing/shortness of breath. oxycodone myristate (XTAMPZA ER ORAL) Take 18 mg by mouth twice daily. insulin needles, DISPOSABLE, (PEN NEEDLE) 31 gauge x 5/16 Use one needle per dose. 4per day. dulaglutide (TRULICITY) 1.5 mg/0.5 mL pen injector Inject 3 mg subcutaneously one time a week. Inject once per week. Discard Pen After flash glucose scanning reader (FREESTYLE JOHN 2 READER) DMII, insulin requiring. Testing 3-5 times q day flash glucose sensor (FREESTYLE JOHN 2 SENSOR) kit DMII, insulin requiring. Testing 3-5 times q day blood sugar diagnostic (FREESTYLE LITE STRIPS) test strip TEST BLOOD SUGAR 1-2 TIMES DAILY lancets (FREESTYLE LANCETS) 28 gauge TEST BLOOD SUGAR 1-2 TIMES DAILY guaiFENesin (MUCINEX) 600 mg 12 hr tablet Take 2 tablets by mouth twice daily. benzonatate (TESSALON PERLES) 100 mg capsule Take 1 capsule by mouth three times daily as needed. (Patient not taking: Reported on 10/18/2021) Ammonium,Pot.and Sodium Lactates (AMLACTIN) crea Apply 1 application to affected area once daily. Compression Knee Highs KNEE HIGH COMPRESSION STOCKINGS 30-40 MM. DX: EDEMA oxyCODONE-acetaminophen (PERCOCET) 5-325 mg tablet Take 1 tablet by mouth three times daily. Blood[place]Gl[place] M[place] [facility] [place] 1 kit Current Facility-Administered Medications Medication Dose Route Frequency perflutren lipid microspheres 1.3 mL in NaCl (PF) 0.9% 10 mL injection (DEFINITY) INTRAVENOUS DIRECTED PRN sodium chloride 0.9 % (flush) 10 mL (BD POSIFLUSH) 10 mL INTRAVENOUS DIRECTED PRN ALLERGIES: ALLERGIES Allergen Reactions Flonase [Fluticason* Other: See Comments Nose bleeds Lisinopril Other: See Comments Hyperkalemia Penicillins Rash PAST MEDICAL HISTORY Diagnosis Date Anxiety Atrial septal defect and mitral stenosis Bicuspid aortic valve Bipolar 1 disorder ([facility]CC) Chronic obstructive pulmonary disease (COPD) ([facility]) Coronary artery disease Degenerative disc disease sees Dr. Sellers Diabetic neuropathy (HCC) DM (diabetes mellitus) ([facility]) HTN (hypertension) Hyperkalemia Hyperlipidemia Hypogonadism male LVH (left ventricular hypertrophy) Morbid obesity (HCC) MANISH on CPAP Pain management Dr. Sellers PAST SURGICAL HISTORY Procedure Laterality Date BACK SURGERY HX fusion- lumbar CARPAL TUNNEL both PAST SURGICAL HISTORY OF left shouder surgery PAST SURGICAL HISTORY OF nasal passages clearing for sleep apnea PAST SURGICAL HISTORY OF 02/13/1981 ORIF right ankle PAST SURGICAL HISTORY OF 04/03/2013 left ulnar nerve decompression FAMILY HISTORY Problem Relation Age of Onset Heart Mother CABG 4. Diabetes Father 2011 with pneumonia other (Dementia) Father Diabetes Sister Ischemic Heart Disease Brother other (Myocardial infarc) Brother Fatal MD Social History Tobacco Use Smoking status: Every Day Packs/day: 0.75 Years: 30.00 Pack years: 22.50 Types: Cigarettes Smokeless tobacco: Never Tobacco comments: less than a pack/day. Substance Use Topics Alcohol use: Yes Comment: Rarely. 2 beers a year Drug use: No Reviewed current medications, allergies, past medical history, surgical history, family history and social history today. REVIEW OF SYSTEMS All other reviewed and negative other than HPI. HEALTH MAINTENANCE: Reviewed health maintenance issues today and recommended the following in detail. HIV SCREENING Never done BP CONTROLLED (<130/80) Never done DTAP,TDAP,TD(1 - Tdap) Never done LUNG CANCER SCREENING Never done SHINGRIX VACCINE(1 of 2) Never done PNEUMOCOCCAL(2 - PCV) due on 11/20/2013 COLORECTAL CANCER SCREENING due on 02/13/2017 DILATED RETINAL EXAM due on 01/13/2020 COVID-19 VACCINE(3 - Booster for Pfizer series) due on 12/17/2020 HBA1C due on 01/26/2022 DEPRESSION ASSESSMENT Never done URINE ALBUMIN:CREATININE RATIO due on 05/03/2022 VITALS: BP 170/82 Pulse 90 Wt 132 kg (291 lb) SpO2 95% BMI 54.98 kg/m Last 4 Encounter Wt Readings: Date: Wt: 10/22/2021 128.8 kg (284 lb) 10/18/2021 130.5 kg (287 lb 12.8 oz) 05/03/2021 129.3 kg (285 lb) 01/04/2021 129.7 kg (286 lb) PHYSICAL EXAMINATION: General appearance: Well appearing, alert, in no acute distress, well-hydrated, well nourished. Skin: Skin color, texture, turgor normal, no suspicious rashes or lesions Head: Normocephalic, no masses, lesions, tenderness or abnormalities Neck: Supple, no adenopathy; thyroid symmetric, normal size, no bruits Lungs: Lungs clear to auscultation. No wheezing, rhonchi, rales Heart: RRR without murmur, gallop, or rubs. No ectopy Abdomen: Normal abdominal exam, Abdomen soft, non-tender. Bowel sounds normal. No masses, organomegaly Extremities: No deformities, edema, skin discoloration, clubbing or cyanosis. Good capillary refill. Musculoskeletal: No joint swelling, deformity, or tenderness Feet:Shoes and socks removed, normal distal pulses, not sensitive to monofilament bilaterally, calluses noted bilaterally, and nails notable for Crumbly, Deformed, Hypertrophic, or Yellowish ASSESSMENT/PLAN: 1. Controlled type 2 diabetes mellitus with diabetic neuropathy, with long-term current use of insulin ([facility]) - ICD9: 250.60, 357.2, V58.67, ICD10: E11.40, Z79.4 (primary diagnosis) - Controlled - get labs. - CONSULT TO OPHTHALMOLOGY 2. Encounter for immunization - ICD9: V03.89, ICD10: Z23 - PNEUMOCOCCAL VACCINE (PREVNAR 20) - [employer] COVID-19 BIVALENT BOOSTER VACCINE, AGE 12+ YR 3. Morbid obesity with BMI of 50.0-59.9, adult ([facility]) - ICD9: 278.01, V85.43, ICD10: E66.01, Z68.43 - work on diet. 4. Chronic bronchitis, simple ([facility]) - ICD9: 491.0, ICD10: J41.0 - continue meds. 5. Type 2 diabetes mellitus with microalbuminuria, with long-term current use of insulin ([facility]) - ICD9: 250.40, 791.0, V58.67, ICD10: E11.29, R80.9, Z79.4 - Controlled - Continue current medications - HGB A1C - COMP METABOLIC PANEL - ALBUMIN/CREAT RATIO RND UR - CONSULT TO OPHTHALMOLOGY 6. Bipolar 1 disorder ([facility]) - ICD9: 296.7, ICD10: F31.9 - stable. 7. Bicuspid aortic valve - ICD9: 746.4, ICD10: Q23.1 - follow with cardiology. - CONSULT TO CARDIOLOGY 8. Hyperlipidemia, unspecified hyperlipidemia type - ICD9: 272.4, ICD10: E78.5 - follow progress. 9. Primary hypertension - ICD9: 401.9, ICD10: I10 - suboptimal control - add coreg bid. Discussed risks and benefits of new medication with the patient. Advised them to call if any side effects or questions. - rto in one month for recheck - Goal of BP <130/80 10. Nonrheumatic aortic valve stenosis - ICD9: 424.1, ICD10: I35.0 - stable. See cardiology 11. LVH (left ventricular hypertrophy) - ICD9: 429.3, ICD10: I51.7 - see cardiology 12. Sleep apnea, unspecified type - ICD9: 780.57, ICD10: G47.30 - continue tx 13. Restrictive lung disease - ICD9: 518.89, ICD10: J98.4 - work on weight loss. 14. Microalbuminuria - ICD9: 791.0, ICD10: R80.9 - cannot take toni etc. Work on better bp control 15. Screening for lung cancer - ICD9: V76.0, ICD10: Z12.2 - CONSULT LUNG CANCER SCREENING CLINIC 16. Screening for colon cancer - ICD9: V76.51, ICD10: Z12.11 - COLOGUARD Juan Miguel Arthur MD documented in this encounter [facility] 05-18-2022 Miscellaneous Notes Completed and faxed. Type of form: DME/CPAP supplies Form received via fax When form is completed, Fax form to [phone] Form has been forwarded to Physician Mailbox: Dr. eJrson Haro LPN documented in this encounter [facility] 04-19-[address] [facility] 04-19-2022 History of Presen t illness Narrative iKel Catherine is identified through a medication adherence outreach initiative based on pharmacy claims data from [employer] (insurer) for Statin medication(s). Patient is reviewed 04/19/22 due to medication adherence concerns with the following medications (name, strength, sig): Atorvastatin 10mg every day . 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 N/A Reason for Outreach Care Gap or Scheduling/Wellness visits Payer: Payor: [facility] [employer] / Plan: [employer] HMO / Product Type: HMO / Care Gap Reviewed:: Follow-up appointment Colorectal Cancer Screening Diabetic Eye Exam HBA1C Flu Vaccine Reminder: Reminder note to check Health Maintenance for items below Health Maintenance items due: BP CONTROLLED (<130/80) Never done DTAP,TDAP,TD(1 - Tdap) Never done LUNG CANCER SCREENING Never done SHINGRIX VACCINE(1 of 2) Never done PNEUMOCOCCAL(2 - PCV) due on 11/02/2011 COLORECTAL CANCER SCREENING due on 02/13/2017 DILATED RETINAL EXAM due on 01/13/2020 COVID-19 VACCINE(3 - Booster for Pfizer series) due on 12/17/2020 INFLUENZA(1) due on 10/14/2021 HBA1C due on 01/26/2022 DEPRESSION ASSESSMENT Never done Navigation Signature: Aria Lr MA March 22, 2022 9:10 AM documented in this encounter [facility] 03-21-2022 Miscellaneous Notes Patient has been identified by name and date of : Yes, Provider Dr Arthur Date 03/21/22 Time 1616. Pharmacy phones for refill(s): Requested Prescriptions Pending Prescriptions Disp Refills dulaglutide (TRULICITY) 1.5 mg/0.5 mL pen injector 4 mL 0 Sig: Inject 3 mg subcutaneously one time a week. Inject once per week. Discard Pen After Date of last office visit in primary care: 10/22/21 Future visit: none Last 2 Encounter Wt Readings: Date: Wt: 10/22/2021 128.8 kg (284 lb) 10/18/2021 130.5 kg (287 lb 12.8 oz) Previous labs/tests for medication: Diabetes: Hemoglobin A1C (%) Date Value 10/27/2021 10.1 05/03/2021 10.3 06/24/2020 9.6 03/20/2020 9.4 Please advise. Thank you. Nena Palma RN documented in this encounter [facility] 03-02-2022 Miscellaneous Notes Patient has been identified by name and date of : Yes, Provider Dr. Arthur Date 03/02/22 Time 12:49 pm Pharmacy phones for refill(s): Requested Prescriptions Pending Prescriptions Disp Refills atorvastatin (LIPITOR) 10 mg tablet 30 tablet 5 Sig: TAKE 1 TABLET BY MOUTH AT BEDTIME *FOR CHOLESTEROL dilTIAZem CD (CARDIZEM CD, CARTIA XT) 180 mg 24 hr capsule 30 capsule 5 Sig: Take 1 capsule by mouth once daily. hydroCHLOROthiazide (HYDRODIURIL, ESIDRIX) 25 mg tablet 30 tablet 5 Sig: Take 1 tablet by mouth once daily. Date of last office visit in primary care: 10/22/21 next apt none Last 2 Encounter Wt Readings: Date: Wt: 10/22/2021 128.8 kg (284 lb) 10/18/2021 130.5 kg (287 lb 12.8 oz) Previous labs/tests for medication: Cholesterol: HDL Cholesterol (mg/dL) Date Value 10/27/2021 42 03/20/2020 42 LDL Cholesterol (mg/dL) Date Value 10/27/2021 52 03/20/2020 50 LDL Cholesterol, Nonfasting (mg/dL) Date Value 05/03/2021 36 ALT (U/L) Date Value 10/27/2021 32 06/24/2020 24 Non HDL Cholesterol, Nonfasting (mg/dL) Date Value 06/23/2017 141 Non HDL Cholesterol (mg/dL) Date Value 10/27/2021 97 03/20/2020 94 Blood Pressure: BUN (mg/dL) Date Value 10/27/2021 16 06/24/2020 16 Sodium (mmol/L) Date Value 10/27/2021 137 06/24/2020 138 Last 1 Encounter BP Readings: Date: BP: 10/22/2021 136/70 Thank you. July Perez LPN documented in this encounter [facility] 02-15-2022 Miscellaneous Notes Kate from [facility] calls and states that they have not been able to get Trulicity 3 mg in stock. Kate asking if provider can write a prescription for Trulicity 1.5 mg and for patient to take 2 injections a week to equal 3 mg? Please review and advise, Apple Allen RN documented in this encounter [facility] 02-03-2022 Miscellaneous Notes Patient has been identified by name and date of : Yes Pharmacy phones for refill(s): Requested Prescriptions Pending Prescriptions Disp Refills pregabalin (LYRICA) 100 mg capsule 120 capsule 2 Sig: Take two in the morning, one in the afternoon, and one in the evening. (total of 4 capsules daily). Date of last office visit with pcp: 10/22/2021 Future appt: none Last 2 Encounter Wt Readings: Date: Wt: 10/22/2021 128.8 kg (284 lb) 10/18/2021 130.5 kg (287 lb 12.8 oz) Previous labs/tests for medication: Blood Pressure: BUN (mg/dL) Date Value 10/27/2021 16 06/24/2020 16 Sodium (mmol/L) Date Value 10/27/2021 137 06/24/2020 138 Last 1 Encounter BP Readings: Date: BP: 10/22/2021 136/70 Liver Function: ALT (U/L) Date Value 10/27/2021 32 06/24/2020 24 AST (U/L) Date Value 10/27/2021 26 06/24/2020 30 Please advise. Thank you. Joan Gallardo RN documented in this encounter [facility] 12-27-2021 Miscellaneous Notes Patient has been identified by name and date of : Yes Requested Prescriptions Pending Prescriptions Disp Refills insulin glargine (LANTUS SOLOSTAR U-100 INSULIN) 100 unit/mL (3 mL) 6 Each 1 Sig: Inject 20 Units subcutaneously daily at bedtime. RX INSTRUCTIONS: Patient aware RX will be sent to pharmacy. No need to notify patient. Marzena Puckett [employer] documented in this encounter [facility] 11-17-2021 Miscellaneous Notes Irving calling for refill ESSIE: 10/22/21 NOV: 11/22/21 Last Refill: 10/15/21 #120 0 refills Marley Bradley LPN documented in this encounter [facility] 11-15-2021 Miscellaneous Notes Patient returned call and given provider's message below with verbalized understanding. Left message for patient to call office. Sugars too high. Increase trulicity to 3.0 mg a week. Call sugars in two weeks. Patient calls with updated blood sugar readings: Date AM PM 11/06 241 254 11/07 250 275 11/08 268 291 11/09 200 11/10 332 11/11 302 217 11/12 320 Apple Allen RN documented in this encounter [facility] 11-05-2021 Miscellaneous Notes Rx sent. Pt called in asking if the provider would order him the FreeStyle John. He states he sticks his finger 3-5 times day. On his lancets and test strips it only says to check his blood sugar 1-2 times a day. In order to be eligible for the John you have to have it say to check at least 3 times a day. Please call and advise. Patient has been identified by name and date of : Yes Patient phones for refill(s): Requested Prescriptions Pending Prescriptions Disp Refills flash glucose scanning reader (FREESTYLE JOHN 2 READER) flash glucose sensor (FREESTYLE JOHN 2 SENSOR) kit Date of last office visit in primary care: 10/22/21 Future visit: 11/22/21 Last 2 Encounter Wt Readings: Date: Wt: 10/22/2021 128.8 kg (284 lb) 10/18/2021 130.5 kg (287 lb 12.8 oz) Previous labs/tests for medication: Diabetes: Hemoglobin A1C (%) Date Value 10/27/2021 10.1 05/03/2021 10.3 06/24/2020 9.6 03/20/2020 9.4 Please advise. Thank you. Nena Palma, RN documented in this encounter [facility] 11-04-2021 Miscellaneous Notes Tried patient at # [phone] with no answer. VM verified. Left detailed message explaining that we needed to speak with him regarding his elevated A1c and change to insulin. Advised him to call back. Tried other # on file [phone] and received busy signal multiple times. Letter mailed to patient. Allison Omalley Left message for patient to return call. Elma Guthrie Ma TC to pt, left message to return call to office. Bebeto Haro LPN Please advise [id number] remains elevated 10.2% Has been on trulicity 1.5mg since 10/15/21 < a month so we will need to see effect after 4 weeks. Please confirm he is using Trulicity as we discussed last visit as he did not acknowledge it on med review. I would recommend we increase lantus to 20u in the interim. Check blood sugars fasting a.m. and 2h after evening meal x 3 days after change and report results to office by phone or MyChart. The following approved medication requests have been transmitted electronically. Requested Prescriptions Signed Prescriptions Disp Refills insulin glargine (LANTUS SOLOSTAR U-100 INSULIN) 100 unit/mL (3 mL) 6 Each 1 Sig: Inject 20 Units subcutaneously daily at bedtime. Authorizing Provider: Scott LIVINGSTON M Gregory Barton, PA-C documented in this encounter [facility] 11-03-2021 History of Presen t illness Narrative POPULATION HEALTH NAVIGATION OUTREACH Action/I Patient due for colonoscopy and flu. Left message to call office. 11/03/2021 1:24 PM Pt identified by name and : NO Outreach Outcome/Action Unable to reach patient: Left message Did you use a PCP flex slot to schedule this appointment? N/A Reason for Outreach Care Gap or Scheduling/Wellness visits Payer: Payor: JEFF [employer] / Plan: [employer] HMO / Product Type: HMO / Care Gap Reviewed:: Colorectal Cancer Screening Flu vaccine Reminder: Reminder note to check Health Maintenance for items below Health Maintenance items due: BP CONTROLLED (<130/80) Never done DTAP,TDAP,TD(1 - Tdap) Never done LUNG CANCER SCREENING Never done SHINGRIX VACCINE(1 of 2) Never done PNEUMOCOCCAL(2 - PCV) due on 11/02/2011 DEPRESSION SCREENING due on 11/10/2016 COLORECTAL CANCER SCREENING due on 02/13/2017 DILATED RETINAL EXAM due on 01/13/2020 COVID-19 VACCINE(3 - Booster for Pfizer series) due on 03/24/2021 INFLUENZA(1) due on 10/14/2021 Message Sent to Practice: No Navigation Signature: Miriam Smith MA November 03, 2021 1:23 PM documented in this encounter [facility] 10-22-2021 History of Presen t illness Narrative 61 year old male new to me with c/o here for wellness visit and problem review. Concerned about diabetes and recent prednisone 10/18/2021 patient presented to [facility] with complaints of runny nose, headache, shortness of breath which he states has been persistent over approximately 2 months. Patient's home O2 sats were running 91%, usually 96 to 97% patient sent to [facility] emergency department. Has been sick over 2 months with respiratory illness but later identifies since former UC visit in 12/13/20 and 01/04/2021. 10/18/2021 presented to [facility] ER with complaint of same cough with history of bronchitis and asthma in the past. At that time denied chest pain, fever, chills, body aches, nausea, vomiting or diarrhea. Vital signs 97.8 [id number], recheck 164/66, 94% on room air. Chest x-ray demonstrated no evidence of focal airspace disease. Patient was diagnosed with asthma flare with cough, discharged in stable condition on prednisone 50 mg daily for 5 days, albuterol 90 MCG per actuation MDI 1 to 2 puffs every 4 hours as needed for shortness of breath or wheezing. Patient has significantly improved on steroid but is running high blood sugars in the 400s. Also complains of concerns over history of biscupid aortic valve- feet are swollen over the last few weeks. Tired, no energy. No chest pain. Aside from above patient denies active shortness of breath however he does have dyspnea on exertion of walking 100 to 200 feet or doing any strenuous exercise. This has progressively worsened over the last several months. breathing Nonrheumatic aortic valve stenosis (primary encounter diagnosis) Bicuspid aortic valve Lvh (left ventricular hypertrophy) Primary hypertension Cardiovascular interval hx: 09/27/2018 PVR: R LAMONT 1.04, R TBI 0.97. Left LAMONT 1.01, left TBI 1.03 08/10/2018 echocardiogram: LV size WNL, grade 1 LVDD. RV not seen or interrogated, RVSP unable to report. LA size WNL, RA unable to measure. Moderate aortic stenosis: Peak/mean 50/35 mmHg, DVI 0.25. Overall LV function on limited views appears grossly normal. 11/01/2016 echocardiogram: Suboptimal image quality, ejection fraction not measurable, stage I LVDD, LA size WNL, RA unable to measure. MV WNL, TV not seen or interrogated, trivial TI. AV: Mild aortic valve stenosis, peak/mean gradient 39/21 mmHg, DVI 0.39. Mid ascending aorta 3.8 cm. No pericardial effusion. 04/24/2015 echocardiogram: Moderate concentric LVH, grade 1 LVDD, unable to assess regional wall motion though global function appears normal. No MR, no TR, mild aortic valve stenosis caused by restricted opening peak/mean 38/19 mmHg, DVI 0.39. Mid ascending aorta 3.6 cm 11/20/2012 echocardiogram: LV size WNL, moderate LVH, LV SF normal, EF 55 5%, difficult due to body habitus. Unable to assess regional wall abnormalities. No mitral abnormalities, trivial TR, possible bicuspid aortic valve with mild aortic valve stenosis peak/mean gradient 31/17 mmHg, DVI 0.40. Aorta dilated: Sinus 3.7 cm, mid ascending aorta 4.0 cm Current meds: HCTZ 25mg daily Diltiazem CD 180mg Atorvastatin 10mg daily Use of NTG: No prescription Chest pain, arm, jaw pain, neck, or upper back pain suggestive of angina: As above. SOB: Yes Dyspnea with exertion: Yes, see above orthopnea: No racing or irregular heartbeats: Occasional fluttering palpitations: No syncopal sx: No Unexplainable fatigue Yes, chronically tired Leg swelling: Yes, goes down at night, no change in weight Nausea: No diaphoresis: Yes if minimally active Heartburn: No Claudication: No Smoking: Yes: 1 pack/day chronic Following Low cholesterol, high fiber diet? No If on statin: muscle aches? Chronic issues with multiple muscle groups including neck, back, shoulders, thighs, calves. Unclear whether this is related to statin. If on statin: GI sx or diarrhea? No Additional history none. Component Latest Ref Rng & Units 04/10/2019 03/20/2020 05/03/2021 Cholesterol, Total <200 mg/dL 159 136 Triglyceride <150 mg/dL 118 220 (H) HDL Cholesterol >39 mg/dL 47 42 LDL Cholesterol <100 mg/dL 88 50 Non HDL Cholesterol <130 mg/dL 112 94 Fasting Time hrs 10 10 VLDL Cholesterol <30 mg/dL 24 44 (H) TC:HDL Ratio <5.10 3.38 3.24 LDL:HDL Ratio <2.54 1.87 1.19 Total Cholesterol, Nonfasting <200 mg/dL 153 Triglycerides, Nonfasting <150 mg/dL 396 (H) HDL Cholesterol, Nonfasting >39 mg/dL 38 (L) LDL Cholesterol, Nonfasting <100 mg/dL 36 Non HDL Cholesterol, Nonfasting <130 mg/dL 115 VLDL Cholesterol, Nonfasting <30 mg/dL 79 (H) Total Chol/HDL Ratio, Nonfasting <5.10 mg/dL 4.03 LDL/HDL Ratio, Nonfasting <2.54 mg/dL 0.95 Component Latest Ref Rng & Units 06/23/2017 04/10/2019 05/03/2021 Protein, Total 6.3 - 8.0 g/dL 6.7 6.8 6.7 Albumin 3.9 - 4.9 g/dL 4.3 4.4 4.2 Calcium 8.5 - 10.2 mg/dL 9.3 9.4 9.8 Bilirubin, Total 0.2 - 1.3 mg/dL 0.4 0.3 0.3 Alkaline Phosphatase 38 - 113 U/L 90 89 94 AST 14 - 40 U/L 25 12 (L) 26 Glucose 74 - 99 mg/dL 158 (H) 211 (H) 255 (H) BUN 9 - 24 mg/dL 27 (H) 24 17 Creatinine 0.73 - 1.22 mg/dL 1.03 0.78 1.07 Sodium 136 - 144 mmol/L 138 139 138 Potassium 3.7 - 5.1 mmol/L 4.6 4.8 4.9 Chloride 97 - 105 mmol/L 101 101 101 CO2 22 - 30 mmol/L 22 23 23 Anion Gap 9 - 18 mmol/L 15 15 14 ALT 10 - 54 U/L 36 17 32 eGFR- >60 >60 eGFR-All Other Races . >60 >60 eGFR >=60 mL/min/1.73m 80 Component Latest Ref Rng & Units 06/23/2017 CK 51 - 298 U/L 43 (L) Type 2 diabetes mellitus with microalbuminuria, with long-term current use of insulin (hcc) Microalbuminuria Diabetes Mellitus Type 2: Current medications: Metformin 500mg four times daily with food. Insulin Novolog sliding Taking medication as directed consistently? Yes Medical Issues / Complications: hypertension, hyperlipidemia, and cardiovascular disease Checking blood sugars at home? Yes. 220-330 prior to steroid, after steroid over 600 mornings 300 Watching diet? No Physical Activity: Sedentary Hypoglycemic spells? No Any visual disturbance? No Chest pain? As above New numbness, tingling or loss of sensation? No Any recent foot problems, sores or rashes? No Any recent or sudden weight loss? No Change in urination? Yes. If yes: urinates 3-4 times at night and hourly during the day. Drinking a lot: diet soda with caffeine. Any recent illness? Yes, see above Last eye exam: due. Last foot exam: due. HBA1C: Hemoglobin A1C (%) Date Value 05/03/2021 10.3 06/24/2020 9.6 03/20/2020 9.4 ) CMP: Glucose 255 05/03/2021 BUN 17 05/03/2021 Creatinine 1.07 05/03/2021 Sodium 138 05/03/2021 Potassium 4.9 05/03/2021 Chloride 101 05/03/2021 CO2 23 05/03/2021 Protein, Total 6.7 05/03/2021 Albumin 4.2 05/03/2021 Calcium 9.8 05/03/2021 Alkaline Phosphatase 94 05/03/2021 Bilirubin, Total 0.3 05/03/2021 AST 26 05/03/2021 ALT 32 05/03/2021 Last 2 Encounter Wt Readings: Date: Wt: 10/22/2021 128.8 kg (284 lb) 10/18/2021 130.5 kg (287 lb 12.8 oz) Component Latest Ref Rng & Units 06/25/2018 03/20/2020 05/03/2021 Creatinine, Ur Random (UCRR) 20.0 - 300.0 mg/dL 169.9 287.0 110.2 Albumin, Urine Random mg/L 175.5 (H) 270.0 247.2 Albumin/Creat Ratio <30 mg/g 103 (H) 94 (H) 224 (H) Sleep apnea, unspecified type Restrictive lung disease Chronic bronchitis, simple (hcc) 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 Interval history: 02/20/2013 Dr. Reuben Thompson: Start CPAP at 15 cm H2O, with low threshold to go to BiPAP or ASV if needed for central apnea 11/30/1998 PSG demonstrated severe obstructive sleep apnea, frequent apneas, loud snoring, moderate desaturation with oxygen and arousals. Sleep latency normal 11 minutes, efficiency 78% with 96 minutes of total wake time, decreased slow-wave sleep at 17%, decreased REM sleep of 14% with prolonged REM latency of 210 minutes. 303 apneas, 249 obstructive, 46 mixed, 8 central, 44 hypopnea. Apnea hypopnea index of 60. Desaturation to 86% from baseline 96 to 98% 12/07/2012 PFT: FEV1/FVC ratio normal at 0.84, flow volume loop reveals restrictive pattern, DLCO mildly reduced 22.2% of predicted, DLCO/VA WNL at 5.24 131% of predicted. Conclusion mild restrictive ventilatory impairment no evidence of obstructive lung disease. Diffusion capacity normal when adjusted for alveolar volume due to obesity rather than intrinsic lung disease. Current medications: Budesonide-formoterol 80-4.5mcg 2 puffs twice a day Albuterol HFA 2 puffs q4h prn wheezing. Worsening shortness of breath: No. Cough: Yes. Improving on treatment Wheezing: Yes. Smoking: Yes. 1PPD Compliant with medications: Yes. Using rescue inhaler: 3-4 times a day when sick. Bipolar 1 disorder (formerly [facility]) Current medications: Not taking meds: stopped Fluoxetine, Quetiapine Feels he is doing well, able to manage depressive episodes. Morbid obesity with bmi of 50.0-59.9, adult (formerly [facility]) Vitals 01/04/2021 05/03/2021 10/18/2021 10/22/2021 BODY MASS INDEX 54.04 53.85 54.38 53.66 Gerd without esophagitis Current medication: Protonix 40mg daily AC. Current symptoms: none on med. Last Mg level if on PPI chronically: none. Heartburn is controlled: No. Dysphagia: No. Bloody or black stools: No. Bowel changes: No. Last EGD and/or colonoscopy: none. HISTORIES FAMILY HISTORY Problem Relation Age of Onset Heart Mother CABG 4. Diabetes Father 2011 with pneumonia other (Dementia) Father Diabetes Sister Ischemic Heart Disease Brother other (Myocardial infarc) Brother Fatal MD PAST MEDICAL HISTORY Diagnosis Date Anxiety Atrial septal defect and mitral stenosis Bicuspid aortic valve Bipolar 1 disorder ([facility]) Chronic obstructive pulmonary disease (COPD) ([facility]) Coronary artery disease Degenerative disc disease sees Dr. Sellers Diabetic neuropathy ([facility]) DM (diabetes mellitus) ([facility]) HTN (hypertension) Hyperkalemia Hyperlipidemia Hypogonadism male LVH (left ventricular hypertrophy) Morbid obesity ([facility]) MANISH on CPAP Pain management Dr. Sellers PAST SURGICAL HISTORY Procedure Laterality Date BACK SURGERY HX fusion- lumbar CARPAL TUNNEL both PAST SURGICAL HISTORY OF left shouder surgery PAST SURGICAL HISTORY OF nasal passages clearing for sleep apnea PAST SURGICAL HISTORY OF 02/13/1981 ORIF right ankle PAST SURGICAL HISTORY OF 04/03/2013 left ulnar nerve decompression Social History Tobacco Use Smoking status: Every Day Packs/day: 0.75 Years: 30.00 Pack years: 22.50 Types: Cigarettes Smokeless tobacco: Never Tobacco comments: less than a pack/day. Substance Use Topics Alcohol use: Yes Comment: Rarely. 2 beers a year Drug use: No ACTIVE PROBLEM LIST Restrictive Lung Disease Sleep Apnea Bicuspid Aortic Valve Controlled Type 2 Diabetes Mellitus With Diabetic Neuropathy, With Long-Term Current Use of Insulin ([facility]) Hyperlipidemia Htn (Hypertension) Ddd (Degenerative Disc Disease), Lumbar Bipolar 1 Disorder ([facility]) Morbid Obesity With Bmi of 50.0-59.9, Adult ([facility]) Lvh (Left Ventricular Hypertrophy) Chronic Bronchitis, Simple ([facility]) Hypogonadism Male Ulnar Neuropathy of Left Upper Extremity Tendinitis of Left Wrist Microalbuminuria Nonrheumatic Aortic Valve Stenosis Type 2 Diabetes Mellitus With Microalbuminuria, With Long-Term Current Use of Insulin ([facility]) Current Outpatient Medications Medication Sig Dispense Refill celecoxib (CELEBREX) 200 mg capsule Take 200 mg by mouth twice daily. predniSONE (DELTASONE) 50 mg Take 50 mg by mouth once daily. pregabalin (LYRICA) 100 mg capsule Take two in the morning, one in the afternoon, and one in the evening. (total of 4 capsules daily). 120 capsule 0 dulaglutide (TRULICITY) 1.5 mg/0.5 mL pen injector Inject 1.5 mg subcutaneously one time a week. Inject once per week. Discard Pen After 12 Each 0 insulin glargine (LANTUS SOLOSTAR U-100 INSULIN) 100 unit/mL (3 mL) Inject 10 Units subcutaneously daily at bedtime. 5 Pen 0 hydroCHLOROthiazide (HYDRODIURIL, ESIDRIX) 25 mg tablet Take 1 tablet by mouth once daily. 30 tablet 5 dilTIAZem CD (CARDIZEM CD, CARTIA XT) 180 mg 24 hr capsule Take 1 capsule by mouth once daily. 30 capsule 5 atorvastatin (LIPITOR) 10 mg tablet TAKE 1 TABLET BY MOUTH AT BEDTIME *FOR CHOLESTEROL 30 tablet 5 glimepiride (AMARYL) 4 mg tablet Take 1 tablet by mouth daily with breakfast. 30 tablet 11 metFORMIN (GLUCOPHAGE) 500 mg tablet Take 1 tablet by mouth four times daily. [address] (PROTONIX) 40 mg tablet Take 1 tablet by mouth daily before breakfast. Take on empty stomach, 1/2 hr before meal. 30 tablet 11 ergocalciferol 50,000 unit capsule (VITAMIN D2, DRISDOL) Take 1 capsule by mouth one time a week. 4 capsule 11 budesonide-formoterol (SYMBICORT) 80-4.5 mcg/actuation inhaler Inhale 2 Puffs as instructed twice daily. 1 Inhaler 11 insulin aspart U-100 (NOVOLOG FLEXPEN U-100 INSULIN) 100 unit/mL (3 mL) Per sliding scale: <200 no coverage, 201-250-2 units, 251-300-4 units, 301-350-6 units, 351-400-8 units, 400-450-10 units, call above 450. 5 Pen 11 insulin needles, DISPOSABLE, (PEN NEEDLE) 31 gauge x /16 Use one needle per dose. 4per day. 100 Each 11 lancets (FREESTYLE LANCETS) 28 gauge TEST BLOOD SUGAR 1-2 TIMES DAILY 100 Each 11 albuterol HFA (PROVENTIL HFA, VENTOLIN HFA) 90 mcg/actuation inhaler Inhale 2 Puffs as instructed every 4 hours as needed for wheezing/shortness of breath. 1 Each 0 guaiFENesin (MUCINEX) 600 mg 12 hr tablet Take 2 tablets by mouth twice daily. 24 tablet 0 Ammonium,Pot.and Sodium Lactates (AMLACTIN) crea Apply 1 application to affected area once daily. 1 Tube 11 oxycodone myristate (XTAMPZA ER ORAL) Take 18 mg by mouth twice daily. Blood-Glucose Meter [facility] Dispense 1 kit 1 Each 0 blood sugar diagnostic (FREESTYLE LITE STRIPS) test strip TEST BLOOD SUGAR 1-2 TIMES DAILY 100 Strip 11 benzonatate (TESSALON PERLES) 100 mg capsule Take 1 capsule by mouth three times daily as needed. (Patient not taking: Reported on 10/18/2021) 30 capsule 0 FLUoxetine (PROZAC) 20 mg capsule Take 1 capsule by mouth once daily. (Patient not taking: Reported on 10/22/2021) 30 capsule 2 QUEtiapine (SEROQUEL) 25 mg tablet Take 1 tablet by mouth daily at bedtime. 30 tablet 2 Compression Knee Highs KNEE HIGH COMPRESSION STOCKINGS 30-40 MM. DX: EDEMA 1 Each 3 oxyCODONE-acetaminophen (PERCOCET) 5-325 mg tablet Take 1 tablet by mouth three times daily. 0 traMADol (ULTRAM) 50 mg tablet Take 50 mg by mouth twice daily as needed. (Patient not taking: Reported on 10/22/2021) No current facility-administered medications for this visit. BP CONTROLLED (<130/80) Never done DTAP,TDAP,TD(1 - Tdap) Never done LUNG CANCER SCREENING Never done SHINGRIX VACCINE(1 of 2) Never done PNEUMOCOCCAL(2 - PCV) due on 11/02/2011 DEPRESSION SCREENING due on 11/10/2016 COLORECTAL CANCER SCREENING due on 02/13/2017 DILATED RETINAL EXAM due on 01/13/2020 COVID-19 VACCINE(3 - Booster for Pfizer series) due on 03/24/2021 HBA1C due on 08/03/2021 INFLUENZA(1) due on 10/14/2021 REVIEW OF SYMPTOMS: General: chronic fatigue. Energy Level: poor. Exercise walks in house. Sleep: hours: usually 2h and has to void. 6 hours total, naps in evening. Diet: not balanced , lives on disability Any routine health measures: none. Tobacco use: 1.25 ppd. Caffeine use: [employer] 96oz. ETOH use: none. Marijuana use: none. Illicit drug use: none. Eyes: denies glaucoma, + cataracts. Reading glasses. Last eye exam: 5 year. EENT: +recurrent sinus infection. Denies unusual nasal drainage. Denies hoarsemess, sore throat, or recurrent sore in mouth or tongue. Cardiovascular: denies chest/ left arm, upper back pain. No resting SOB, dyspnea with exertion less than 100 feet walking. Notes from pulmonology as far back as 11/12/2010 identify the same level of function. Able to lay flat on left side. No palpitation, irregular or racing heart beats. + leg and feet swollen, reduces overnight, mild, no increase in weight.. No history of rheumatic fever or prior heart conditions outside of above. Respiratory: see HPI GI: See HPI. Denies difficulty swallowing, nausea, vomiting, change in appetite. No change in bowel habits. Denies constipation, diarrhea, rectal bleeding or hemorrhoids, incontinence. No history of GERD, PUD, jaundice/hepatitis, GB disease, diverticulosis, colorectal cancer, hernias. No hx of colon cancer screening. Kidney/Bladder: Daytime every 1-2 h, about same at night. Denies frequency, burning. No incontinence. No history of kidney stones, recurrent UTI or kidney infection. Skin: denies unusual rashes. No history of skin cancer, bleeding/changing moles, or unusual skin lesions. Neurologic: Denies recurrent ANDRE, change in vision, hearing or smell, tremors, unusual weakness, loss of sensation, or difficulty with balance or gait. No history of epilepsy/convulsions, migraine, head/spinal injuries, or stroke/TIA. Psychiatric: See HPI denies unusual worry, moodiness, depression, suicidal ideation or unusual disturbance in relationships. Endocrine: See HPI Denies change in skin or hair texture, emotional lability. No history of thryoid, pituitary or hormonal problems. Hematologic: denies unusual bleeding, bruising, or history of anemia or blood transfusion. Denies hx blood clots. Infections: denies risk factors for HIV, hepatitis or history of unusual infection. Immunizations are up to date. Musculoskeletal: Back and hips give out if walks too far. Hx lumbar laminectomy with plate and screws. Mobile vertebra. Knees, hips are lab. Left hand and left shoulder screwed up, nerve damage in wrist. Chirnic issues with muscle and joint pain everywhere EXAM: BP 136/70 Pulse 107 Resp 18 Wt 128.8 kg (284 lb) SpO2 94% BMI 53.66 kg/m Pleasant morbidly obese man in no acute distress. Alert and oriented all spheres. Normal affect and cognition. Speech normal. No deficits to learning or comprehension. Skin warm, dry, pink to lips and nailbeds. Normal turgor. Respirations regular and unlabored though breathy with prolonged speaking. Harsh rattley cough intermittent but clears. Barrel chest. HEENT: NCAT. No scleral icterus or conjunctival injection. TM's clear. Nosal deviation to right, oropharynx free from injection or lesion. Oral membranes moist and pink. No cervical lymph nodes. Thyroid non-tender, no masses, or enlargement. Mallampati 4. Carotids pulses 2+/4+ without bruits. No JVD with HOB at 30 degrees. Chest is barrel shape. Lungs are clear to all sharp with good air exchange through out. Dry crackles posterior bases. HRRR without murmur or gallop. No lifts, heaves, or rubs. Abdomen: Difficult due to morbid obesity. Active bowel sounds throughout, soft, nontender, no masses or organomegaly. No CVAT. No inguinal or axillary nodes. Femoral pulses 2 out of 4 plus without bruits. Back with midline lumbar scar, moderate tenderness across para lumbar muscles. Extrem: no clubbing or cyanosis. Edema: 1+ pitting distal third of lower legs to feet.. Extremities are warm and pink with prompt capillary refill. Dorsal pedal pulses are readily palpable, prompt capillary refill. Patient has moderately thick nails which are upturned on the big toes due to shortened length compared to second toe. Moderate plantar calluses. Feet:Shoes and socks removed, normal distal pulses, and sensitive to 10 gm monofilament Some of this note may have been copied and pasted for the purpose of history context and comparison. ASSESSMENT/PLAN: 1. Nonrheumatic aortic valve stenosis - ICD9: 424.1, ICD10: I35.0 (primary diagnosis) Patient has mild symptoms with chest pain, increased dyspnea on exertion and shortness of breath. Has not had an echo in the last 3 years, so I will place this as a priority test and request as soon as possible. Will need to follow-up with cardiology, has seen Dr. Keith Montgomery in the past and midline and is willing to go back. - ECHO - PERFLUTREN LIPID MICROSPHERES 1.1 MG/ML INJECTION IN NS 10 ML - SODIUM CHLORIDE 0.9 % (FLUSH) INJECTION SYRINGE - INSERT IV ([place]) - DEFINITY CONTRAST - IV DISCONTINUE - COMP METABOLIC PANEL - LIPID PANEL BASIC - CONSULT TO CARDIOLOGY 2. Bicuspid aortic valve - ICD9: 746.4, ICD10: Q23.1 As above - ECHO - PERFLUTREN LIPID MICROSPHERES 1.1 MG/ML INJECTION IN NS 10 ML - SODIUM CHLORIDE 0.9 % (FLUSH) INJECTION SYRINGE - INSERT IV ([place]) - DEFINITY CONTRAST - IV DISCONTINUE - COMP METABOLIC PANEL - LIPID PANEL BASIC - CONSULT TO CARDIOLOGY 3. LVH (left ventricular hypertrophy) - ICD9: 429.3, ICD10: I51.7 As above - ECHO - PERFLUTREN LIPID MICROSPHERES 1.1 MG/ML INJECTION IN NS 10 ML - SODIUM CHLORIDE 0.9 % (FLUSH) INJECTION SYRINGE - INSERT IV ([place]) - DEFINITY CONTRAST - IV DISCONTINUE - CONSULT TO CARDIOLOGY 4. Primary hypertension - ICD9: 401.9, ICD10: I10 - good control - Continue current medication(s) - Recommended regular aerobic exercise. - Recommend home blood pressure monitoring, to bring results in on next visit - Goal of BP <130/80 - CONSULT TO CARDIOLOGY 5. Hyperlipidemia, unspecified hyperlipidemia type - ICD9: 272.4, ICD10: E78.5 - suboptimal control - Continue current medication. - Encouraged following a low fat, low cholesterol diet. - Discussed the benefits of regular aerobic exercise and weight loss. - CONSULT TO CARDIOLOGY 6. Type 2 diabetes mellitus with microalbuminuria, with long-term current use of insulin (HCC) - ICD9: 250.40, 791.0, V58.67, ICD10: E11.29, R80.9, Z79.4 uncontrolled Recheck labs Consider addition of GLP-1 such as Trulicity or Ozempic with the benefit of added weight loss, consider reduction in metformin due to patient's complaints of diarrhea intermittently. - CONSULT TO OPHTHALMOLOGY - HGB A1C - CBC 7. Microalbuminuria - ICD9: 791.0, ICD10: R80.9 Discussed need for good blood pressure control, good diabetic control and regular monitoring 8. Chronic bronchitis, simple (HCC) - ICD9: 491.0, ICD10: J41.0 Recommendations stop steroids at this point due to high blood sugars. Patient seems like he is across the point where his illness is improving. If he has problems with increased shortness of breath he is to notify. 9. Sleep apnea, unspecified type - ICD9: 780.57, ICD10: G47.30 Patient's device and settings are not listed 10. Restrictive lung disease - ICD9: 518.89, ICD10: J98.4 Weight increasing - Behavioral intervention 11. Bipolar 1 disorder (HCC) - ICD9: 296.7, ICD10: F31.9 Stable off medications 12. Morbid obesity with BMI of 50.0-59.9, adult (HCC) - ICD9: 278.01, V85.43, Discussed weight management options including bariaatric Would need cardiac issues resolved first. Discussed GLP1 options for diabetes Goal double digit weight loss - TSH BLD 13. GERD without esophagitis - ICD9: 530.81, ICD10: K21.9 - Discussed lifestyle modifications including losing weight, limiting caffeine, no meals three hours before sleep, and head of bed elevation - Continue treatment with PPI - check mag level 14. Age-related cataract of both eyes, unspecified age-related cataract type - ICD9: 366.10, ICD10: H25.9 - CONSULT TO OPHTHALMOLOGY 15. Vitamin D deficiency - ICD9: 268.9, ICD10: E55.9 Encourage supplementation 800 units during the summer months, 1000 units during the winter months with vitamin D3 - VITAMIN D 25 HYDROXY 16. Fatigue, unspecified type - ICD9: 780.79, ICD10: R53.83 - CBC - TSH 17. Current use of proton pump inhibitor - ICD9: V58.69, ICD10: Z79.899 - MAGNESIUM BLD 18. Nocturnal oxygen desaturation - ICD9: 327.24, ICD10: G47.34 Unfortunately due to the fact the patient is new to me and his complexity we are not able to complete all areas of routine physical and problem analysis. From us to address at next visit in more detail: Respiratory issues, possible pulmonary function testing, possible pulmonary consult, lung cancer screening, more on smoking cessation. Patient indicates he is motivated to work currently toward a better health. I spent a total of 74 minutes on the date of the service which included preparing to see the patient, [id number] patient care, completing clinical documentation, obtaining and/or reviewing separately obtained history, performing a medically appropriate examination, counseling and educating the patient/family/caregiver, ordering medications, tests, or procedures, communicating with other HCPs (not separately reported), independently interpreting results (not separately reported), communicating results to the patient/family/caregiver, and care coordination (not separately reported). Scott Livingston PA-C documented in this encounter [facility] 10-15-2021 Miscellaneous Notes Please assist pt with scheduling follow up appt with PCP or a member of PCP team (Keith or Angela) Due for follow up visit. Patient has been identified by name and date of : Yes Pharmacy phones for refill(s): Requested Prescriptions Pending Prescriptions Disp Refills pregabalin (LYRICA) 100 mg capsule 120 capsule 0 Sig: Take two in the morning, one in the afternoon, and one in the evening. (total of 4 capsules daily). dulaglutide (TRULICITY) 1.5 mg/0.5 mL pen injector 12 Each 0 Sig: Inject 1.5 mg subcutaneously one time a week. Inject once per week. Discard Pen After Date of last office visit with pcp: 05-03-21. Next appt: none Last 2 Encounter Wt Readings: Date: Wt: 05/03/2021 129.3 kg (285 lb) 01/04/2021 129.7 kg (286 lb) Previous labs/tests for medication: Diabetes: Hemoglobin A1C (%) Date Value 05/03/2021 10.3 06/24/2020 9.6 03/20/2020 9.4 Blood Pressure: BUN (mg/dL) Date Value 05/03/2021 17 06/24/2020 16 Sodium (mmol/L) Date Value 05/03/2021 138 06/24/2020 138 Last 1 Encounter BP Readings: Date: BP: 05/03/2021 132/72 Liver Function: ALT (U/L) Date Value 05/03/2021 32 06/24/2020 24 AST (U/L) Date Value 05/03/2021 26 06/24/2020 30 Please advise. Thank you. Scott Cabrera RN documented in this encounter [facility] 09-23-2021 History of Presen t illness Narrative POPULATION HEALTH NAVIGATION OUTREACH Action/FYI Vm left for a return call Due for wellness, colonoscopy, A1c, GAUDENCIO Pt identified by name and : NO Outreach Outcome/Action Unable to reach patient: Left message Did you use a PCP flex slot to schedule this appointment? No Reason for Outreach Care Gap or Scheduling/Wellness visits Payer: Payor: [employer] / Plan: [employer] HMO / Product Type: HMO / Care Gap Reviewed:: Annual Wellness visit Controlling Blood Pressure Colorectal Cancer Screening Diabetic Eye Exam HBA1C Reminder: Reminder note to check Health Maintenance for items below Health Maintenance items due: BP CONTROLLED (<130/80) Never done DTAP,TDAP,TD(1 - Tdap) Never done LUNG CANCER SCREENING Never done SHINGRIX VACCINE(1 of 2) Never done PNEUMOCOCCAL(2 - PCV) due on 11/02/2011 DEPRESSION SCREENING due on 11/10/2016 COLORECTAL CANCER SCREENING due on 02/13/2017 DILATED RETINAL EXAM due on 01/13/2020 COVID-19 VACCINE(3 - Booster for Pfizer series) due on 03/24/2021 HBA1C due on 08/03/2021 Message Sent to Practice: No Navigation Signature: Apple Valadez Population Health Navigator September 23, 2021 1:52 PM documented in this encounter [facility] 09-16-2021 Miscellaneous Notes Patient has been identified by name and date of : Yes Pharmacy phones for refill(s): Pending Prescriptions Disp Refills HYDROCHLOROTHIAZIDE 25 MG TABLET 30 tablet 5 Sig: Take 1 tablet by mouth once daily. JANINE: No DILTIAZEM SR 180 MG 24 HR CAP 30 capsule 5 Sig: Take 1 capsule by mouth once daily. JANINE: No ATORVASTATIN 10 MG TABLET 30 tablet 5 Sig: TAKE 1 TABLET BY MOUTH AT BEDTIME *FOR CHOLESTEROL JANINE: No PREGABALIN 100 MG CAPSULE 120 capsule 0 Sig: Take two in the morning, one in the afternoon, and one in the evening. (total of 4 capsules daily). CARLY Class: C-V JANINE: No Date of last office visit in primary care: 05.03.21 Last 2 Encounter Wt Readings: Date: Wt: 05/03/2021 129.3 kg (285 lb) 01/04/2021 129.7 kg (286 lb) Previous labs/tests for medication: Cholesterol: HDL Cholesterol (mg/dL) Date Value 03/20/2020 42 HDL Cholesterol, Nonfasting (mg/dL) Date Value 05/03/2021 38 LDL Cholesterol (mg/dL) Date Value 03/20/2020 50 LDL Cholesterol, Nonfasting (mg/dL) Date Value 05/03/2021 36 ALT (U/L) Date Value 05/03/2021 32 06/24/2020 24 Non HDL Cholesterol, Nonfasting (mg/dL) Date Value 05/03/2021 115 06/23/2017 141 Non HDL Cholesterol (mg/dL) Date Value 03/20/2020 94 Blood Pressure: BUN (mg/dL) Date Value 05/03/2021 17 06/24/2020 16 Sodium (mmol/L) Date Value 05/03/2021 138 06/24/2020 138 Last 1 Encounter BP Readings: Date: BP: 05/03/2021 132/72 Please advise. Thank you. July Perez LPN documented in this encounter [facility] 08-24-2021 Miscellaneous Notes Last OV: 05/03/21 - No future appts scheduled. Patient has been identified by name and date of : Yes Pending Prescriptions Disp Refills PREGABALIN 100 MG CAPSULE 120 capsule 0 Sig: Take two in the morning, one in the afternoon, and one in the evening. (total of 4 capsules daily). CARLY Class: C-V JANINE: No RX INSTRUCTIONS: Pharmacy initiated this request. No need to notify patient. Yoly Murray LPN documented in this encounter [facility] 07-20-2021 Miscellaneous Notes Patient has been identified by name and date of : Yes Pharmacy phones for refill(s): Pending Prescriptions Disp Refills GLIMEPIRIDE 4 MG TABLET 30 tablet 11 Sig: Take 1 tablet by mouth daily with breakfast. JANINE: No METFORMIN 500 MG TABLET 120 tablet 11 Sig: Take 1 tablet by mouth four times daily. JANINE: No PANTOPRAZOLE 40 MG TABLET,DELAYED RELEASE 30 tablet 11 Sig: Take 1 tablet by mouth daily before breakfast. Take on empty stomach, 1/2 hr before meal. JANINE: No PREGABALIN 100 MG CAPSULE 120 capsule 0 Sig: Take two in the morning, one in the afternoon, and one in the evening. (total of 4 capsules daily). CARLY Class: C-V JANINE: No Date of last office visit in primary care: 05/03/2021; Future Appt. 08/03/2021 Last 2 Encounter Wt Readings: Date: Wt: 05/03/2021 129.3 kg (285 lb) 01/04/2021 129.7 kg (286 lb) Previous labs/tests for medication: Diabetes: Hemoglobin A1C (%) Date Value 05/03/2021 10.3 06/24/2020 9.6 03/20/2020 9.4 Blood Pressure: BUN (mg/dL) Date Value 05/03/2021 17 06/24/2020 16 Sodium (mmol/L) Date Value 05/03/2021 138 06/24/2020 138 Last 1 Encounter BP Readings: Date: BP: 05/03/2021 132/72 Liver Function: ALT (U/L) Date Value 05/03/2021 32 06/24/2020 24 AST (U/L) Date Value 05/03/2021 26 06/24/2020 30 Please advise. Thank you. Apple Allen RN documented in this encounter [facility] 07-15-2021 History of Presen t illness Narrative POPULATION HEALTH NAVIGATION OUTREACH Action/FYI Tried to contact patient, unable to leave a message no voicemail set up Letter sent Diabetic retinal exam Colorectal cancer screening Hgba1c placed in patients 08/03/21 appointment notes, Hgba1c can be done during office visit with POC Pt identified by name and : NO Outreach Outcome/Action Unable to reach patient: Phone number not valid / voicemail full Letter mailed Did you use a PCP flex slot to schedule this appointment? N/A Reason for Outreach Care Gap or Scheduling/Wellness visits Payer: Payor: [employer] AND [employer] / Plan: [employer] HMO / Product Type: HMO / Care Gap Reviewed:: Colorectal Cancer Screening Diabetic Eye Exam HBA1C Reminder: Reminder note to check Health Maintenance for items below Health Maintenance items due: BP CONTROLLED (<130/80) Never done DTAP,TDAP,TD(1 - Tdap) Never done HEPATITIS B(1 of 3 - Risk 3-dose series) Never done LUNG CANCER SCREENING Never done SHINGRIX VACCINE(1 of 2) Never done PNEUMOCOCCAL(2 - PCV) due on 11/02/2011 DEPRESSION SCREENING due on 11/10/2016 COLORECTAL CANCER SCREENING due on 02/13/2017 DILATED RETINAL EXAM due on 01/13/2020 COVID-19 VACCINE(3 - Booster for Pfizer series) due on 03/24/2021 Message Sent to Practice: No Navigation Signature: Nga Hawk MA July 15, 2021 10:22 AM documented in this encounter [facility] 06-24-2021 Miscellaneous Notes Patient has been identified by name and date of : Yes Pending Prescriptions Disp Refills GLIMEPIRIDE 4 MG TABLET 30 tablet 0 Sig: Take 1 tablet by mouth daily with breakfast. JANINE: No METFORMIN 500 MG TABLET 120 tablet 0 Sig: Take 1 tablet by mouth four times daily. JANINE: No PANTOPRAZOLE 40 MG TABLET,DELAYED RELEASE 30 tablet 0 Sig: Take 1 tablet by mouth daily before breakfast. Take on empty stomach, 1/2 hr before meal. JANINE: No PREGABALIN 100 MG CAPSULE 120 capsule 0 Sig: Take two in the morning, one in the afternoon, and one in the evening. (total of 4 capsules daily). CARLY Class: C-V JANINE: No ESSIE-05/03/21 Labs-05/03/21 NOV-08/03/21 RX INSTRUCTIONS: Pharmacy initiated this request. No need to notify patient. Ya Brewster Pss documented in this encounter [facility] 06-14-2021 History of Presen t illness Narrative [facility] Enrollment Provider Action/FYI: will have pt return call Patient referred by: [facility] Alyssa Contact made with patient: Yes - Patient identified by name and . Discussed care with patient Saeed this is Karen Gallagher RN and I am calling from Juan Miguel Arthur MD office at the [facility]. I am a RN [employer] with our [facility] program. Juan Miguel Arthur MD wanted me to reach out to help you manage your health at home. Our goal is to keep you well at home. We want to help you manage your chronic disease by providing a safety net of resources around you, getting you the care you need in a timely manner, and hopefully keep you out of the ED and hospital. I will send you a few questions once a week through your [email or web address] account. It will automatically show up for you to complete. There are simple questions that will help us identify if you have any concerns or symptoms and I will call you to help get what you need. We will be able to connect you, review your symptoms, do an on demand visit, or communicate with Juan Miguel Arthur MD if needed. I am going to sign you up for the program now. Enrollment Questions: Let's get you enrolled in the program. No, reason: Other: Pt never returned call Closing: Patient does not meet criteria. PCC to reassess patient in a month. documented in this encounter [facility] 05-28-2021 Miscellaneous Notes Patient has been identified by name and date of : Yes Pharmacy phones for refill(s): Pending Prescriptions Disp Refills PANTOPRAZOLE 40 MG TABLET,DELAYED RELEASE 30 tablet 0 Sig: Take 1 tablet by mouth daily before breakfast. Take on empty stomach, 1/2 hr before meal. JANINE: No METFORMIN 500 MG TABLET 120 tablet 0 Sig: Take 1 tablet by mouth four times daily. JANINE: No GLIMEPIRIDE 4 MG TABLET 30 tablet 0 Sig: Take 1 tablet by mouth daily with breakfast. JANINE: No ERGOCALCIFEROL (VITAMIN D2) 1,250 MCG (50,000 UNIT) CAPSULE 4 capsule 11 Sig: Take 1 capsule by mouth one time a week. JANINE: No BUDESONIDE-FORMOTEROL HFA 80 MCG-4.5 MCG/ACTUATION AEROSOL INHALER 1 Inhaler 11 Sig: Inhale 2 Puffs as instructed twice daily. JANINE: No PREGABALIN 100 MG CAPSULE 120 capsule 0 Sig: Take two in the morning, one in the afternoon, and one in the evening. (total of 4 capsules daily). CARLY Class: C-V JANINE: No Date of last office visit in primary care: 05/03/21 Last 2 Encounter Wt Readings: Date: Wt: 05/03/2021 129.3 kg (285 lb) 01/04/2021 129.7 kg (286 lb) Previous labs/tests for medication: Not applicable Please advise. Thank you. Alexandra Osborn LPN documented in this encounter [facility] 11-16-2020 Miscellaneous Notes [place] calling for refills. ESSIE: 06/18/20 NOV: None scheduled Marley Bradley LPN documented in this encounter [facility] documented as of this encounter (statuses as of 05/21/2022) [facility] History of Past illness Narrative* Problem Noted Date Resolved Date Tendinitis of left wrist 05/14/2013 023 Atrial septal defect and mitral stenosis 11/30/2012 documented as of this encounter (statuses as of 05/23/2022) [facility] History of Past illness Narrative* Problem Noted Date Resolved Date Tendinitis of left wrist 05/14/2013 023 Atrial septal defect and mitral stenosis 11/30/2012 documented as of this encounter (statuses as of 05/25/2022) [facility] History of Past illness Narrative* Problem Noted Date Resolved Date Tendinitis of left wrist 05/14/2013 023 Atrial septal defect and mitral stenosis 11/30/2012 documented as of this encounter (statuses as of 05/30/2022) [facility] History of Past illness Narrative* Problem Noted Date Resolved Date Tendinitis of left wrist 05/14/2013 023 Atrial septal defect and mitral stenosis 11/30/2012 documented as of this encounter (statuses as of 05/31/2022) [facility] History of Past illness Narrative* Problem Noted Date Resolved Date Tendinitis of left wrist 05/14/2013 023 Atrial septal defect and mitral stenosis 11/30/2012 documented as of this encounter (statuses as of 06/25/2022) [facility] History of Past illness Narrative* Problem Noted Date Resolved Date Tendinitis of left wrist 05/14/2013 023 Atrial septal defect and mitral stenosis 11/30/2012 documented as of this encounter (statuses as of 06/29/2022) [facility] History of Past illness Narrative* Problem Noted Date Resolved Date Tendinitis of left wrist 05/14/20132 023 Atrial septal defect and mitral stenosis 11/30/2012 documented as of this encounter (statuses as of 07/15/2022) [facility] History of Past illness Narrative* Problem Noted Date Resolved Date Tendinitis of left wrist 05/14/201305/20/2 023 Atrial septal defect and mitral stenosis 11/30/2012 documented as of this encounter (statuses as of 07/16/2022) [facility] History of Past illness Narrative* Problem Noted Date Resolved Date Tendinitis of left wrist 05/14/20132 023 Atrial septal defect and mitral stenosis 11/30/2012 documented as of this encounter (statuses as of 07/20/2022) [facility] History of Past illness Narrative* Problem Noted Date Resolved Date Tendinitis of left wrist 05/14/2013 023 Atrial septal defect and mitral stenosis 11/30/2012 documented as of this encounter (statuses as of 08/09/2022) [facility] History of Past illness Narrative* Problem Noted Date Resolved Date Tendinitis of left wrist 05/14/2013 023 Atrial septal defect and mitral stenosis 11/30/2012 documented as of this encounter (statuses as of 08/10/2022) [facility] History of Past illness Narrative* Problem Noted Date Resolved Date Tendinitis of left wrist 05/14/2013 023 Atrial septal defect and mitral stenosis 11/30/2012 documented as of this encounter (statuses as of 08/13/2022) [facility] History of Past illness Narrative* Problem Noted Date Resolved Date Tendinitis of left wrist 05/14/2013 023 Atrial septal defect and mitral stenosis 11/30/2012 documented as of this encounter (statuses as of 08/18/2022) [facility] History of Past illness Narrative* Problem Noted Date Diagnosed Date Resolved Date Tendinitis of left wrist 05/14/201308/2022 Atrial septal defect and mitral stenosis 11/30/2012 documented as of this encounter (statuses as of 09/29/2022) [place] [id number] History of Past illness Narrative* Problem Noted Date Diagnosed Date Resolved Date Tendinitis of left wrist 05/14/201308/2022 Atrial septal defect and mitral stenosis 11/30/2012 documented as of this encounter (statuses as of 10/03/2022) [facility] History of Past illness Narrative* Problem Noted Date Diagnosed Date Resolved Date Tendinitis of left wrist 05/14/201308/2022 Atrial septal defect and mitral stenosis 11/30/2012 documented as of this encounter (statuses as of 10/04/2022) [facility] History of Past illness Narrative* Problem Noted Date Diagnosed Date Resolved Date Tendinitis of left wrist 05/14/201308/2022 Atrial septal defect and mitral stenosis 11/30/2012 documented as of this encounter (statuses as of 10/05/2022) [facility] History of Past illness Narrative* Problem Noted Date Diagnosed Date Resolved Date Tendinitis of left wrist 05/14/201308/2022 Atrial septal defect and mitral stenosis 11/30/2012 documented as of this encounter (statuses as of 10/07/2022) [facility] History of Past illness Narrative* Problem Noted Date Diagnosed Date Resolved Date Tendinitis of left wrist 05/14/201308/2022 Atrial septal defect and mitral stenosis 11/30/2012 documented as of this encounter (statuses as of 10/12/2022) [facility] History of Past illness Narrative* Problem Noted Date Diagnosed Date Resolved Date Tendinitis of left wrist 05/14/201308/2022 Atrial septal defect and mitral stenosis 11/30/2012 documented as of this encounter (statuses as of 10/14/2022) [facility] History of Past illness Narrative* Problem Noted Date Diagnosed Date Resolved Date Tendinitis of left wrist 05/14/201308/2022 Atrial septal defect and mitral stenosis 11/30/2012 documented as of this encounter (statuses as of 10/20/2022) [facility] History of Past illness Narrative* Problem Noted Date Diagnosed Date Resolved Date Tendinitis of left wrist 05/14/201308/2022 Atrial septal defect and mitral stenosis 11/30/2012 documented as of this encounter (statuses as of 10/26/2022) [facility] History of Past illness Narrative* Problem Noted Date Diagnosed Date Resolved Date Tendinitis of left wrist 05/14/201308/2022 Atrial septal defect and mitral stenosis 11/30/2012 documented as of this encounter (statuses as of 10/26/2022) [facility] History of Past illness Narrative* Problem Noted Date Diagnosed Date Resolved Date Tendinitis of left wrist 05/14/201308/2022 Atrial septal defect and mitral stenosis 11/30/2012 documented as of this encounter (statuses as of 10/27/2022) [facility] History of Past illness Narrative* Problem Noted Date Diagnosed Date Resolved Date Tendinitis of left wrist 05/14/201308/2022 Atrial septal defect and mitral stenosis 11/30/2012 documented as of this encounter (statuses as of 10/31/2022) [facility] History of Past illness Narrative* Problem Noted Date Diagnosed Date Resolved Date Tendinitis of left wrist 05/14/201308/2022 Atrial septal defect and mitral stenosis 11/30/2012 documented as of this encounter (statuses as of 11/01/2022) [facility] History of Past illness Narrative* Problem Noted Date Diagnosed Date Resolved Date Tendinitis of left wrist 05/14/201308/2022 Atrial septal defect and mitral stenosis 11/30/2012 documented as of this encounter (statuses as of 11/02/2022) [facility] History of Past illness Narrative* Problem Noted Date Diagnosed Date Resolved Date Tendinitis of left wrist 05/14/201308/2022 Atrial septal defect and mitral stenosis 11/30/2012 documented as of this encounter (statuses as of 11/09/2022) [facility] History of Past illness Narrative* Problem Noted Date Diagnosed Date Resolved Date Tendinitis of left wrist 05/14/201308/2022 Atrial septal defect and mitral stenosis 11/30/2012 documented as of this encounter (statuses as of 11/19/2022) [facility] History of Past illness Narrative* Problem Noted Date Diagnosed Date Resolved Date Tendinitis of left wrist 05/14/201308/2022 Atrial septal defect and mitral stenosis 11/30/2012 documented as of this encounter (statuses as of 11/22/2022) [facility] History of Past illness Narrative* Problem Noted Date Diagnosed Date Resolved Date Tendinitis of left wrist 05/14/201308/2022 Atrial septal defect and mitral stenosis 11/30/2012 documented as of this encounter (statuses as of 11/24/2022) [facility] History of Past illness Narrative* Problem Noted Date Diagnosed Date Resolved Date Tendinitis of left wrist 05/14/201308/2022 Atrial septal defect and mitral stenosis 11/30/2012 documented as of this encounter (statuses as of 11/25/2022) [place] [id number] History of Past illness Narrative* Problem Noted Date Diagnosed Date Resolved Date Tendinitis of left wrist 05/14/201308/2022 Atrial septal defect and mitral stenosis 11/30/2012 documented as of this encounter (statuses as of 11/25/2022) [facility] History of Past illness Narrative* Problem Noted Date Diagnosed Date Resolved Date Tendinitis of left wrist 05/14/201308/2022 Atrial septal defect and mitral stenosis 11/30/2012 documented as of this encounter (statuses as of 11/30/2022) [facility] History of Past illness Narrative* Problem Noted Date Diagnosed Date Resolved Date Tendinitis of left wrist 05/14/201308/2022 Atrial septal defect and mitral stenosis 11/30/2012 documented as of this encounter (statuses as of 12/01/2022) [facility] History of Past illness Narrative* Problem Noted Date Diagnosed Date Resolved Date Tendinitis of left wrist 05/14/201308/2022 Atrial septal defect and mitral stenosis 11/30/2012 documented as of this encounter (statuses as of 12/01/2022) [facility] History of Past illness Narrative* Problem Noted Date Diagnosed Date Resolved Date Tendinitis of left wrist 05/14/201308/2022 Atrial septal defect and mitral stenosis 11/30/2012 documented as of this encounter (statuses as of 12/07/2022) [facility] History of Past illness Narrative* Problem Noted Date Diagnosed Date Resolved Date Tendinitis of left wrist 05/14/201308/2022 Atrial septal defect and mitral stenosis 11/30/2012 documented as of this encounter (statuses as of 12/09/2022) [facility] History of Past illness Narrative* Problem Noted Date Diagnosed Date Resolved Date Tendinitis of left wrist 05/14/201308/2022 Atrial septal defect and mitral stenosis 11/30/2012 documented as of this encounter (statuses as of 12/09/2022) [facility] History of Past illness Narrative* Problem Noted Date Diagnosed Date Resolved Date Tendinitis of left wrist 05/14/201308/2022 Atrial septal defect and mitral stenosis 11/30/2012 documented as of this encounter (statuses as of 12/13/2022) [facility] History of Past illness Narrative* Problem Noted Date Diagnosed Date Resolved Date Tendinitis of left wrist 05/14/201308/2022 Atrial septal defect and mitral stenosis 11/30/2012 documented as of this encounter (statuses as of 12/18/2022) [facility] History of Past illness Narrative* Problem Noted Date Diagnosed Date Resolved Date Tendinitis of left wrist 05/14/201308/2022 Atrial septal defect and mitral stenosis 11/30/2012 documented as of this encounter (statuses as of 12/21/2022) [facility] History of Past illness Narrative* Problem Noted Date Diagnosed Date Resolved Date Tendinitis of left wrist 05/14/201308/2022 Atrial septal defect and mitral stenosis 11/30/2012 documented as of this encounter (statuses as of 12/22/2022) [facility] History of Past illness Narrative* Problem Noted Date Diagnosed Date Resolved Date Tendinitis of left wrist 05/14/201308/2022 Atrial septal defect and mitral stenosis 11/30/2012 documented as of this encounter (statuses as of 12/27/2022) [facility] History of Past illness Narrative* Problem Noted Date Diagnosed Date Resolved Date Tendinitis of left wrist 05/14/201308/2022 Atrial septal defect and mitral stenosis 11/30/2012 documented as of this encounter (statuses as of 12/28/2022) [facility] History of Past illness Narrative* Problem Noted Date Diagnosed Date Resolved Date Tendinitis of left wrist 05/14/201308/2022 Atrial septal defect and mitral stenosis 11/30/2012 documented as of this encounter (statuses as of 12/30/2022) [facility] History of Past illness Narrative* Problem Noted Date Diagnosed Date Resolved Date Tendinitis of left wrist 05/14/201308/2022 Atrial septal defect and mitral stenosis 11/30/2012 documented as of this encounter (statuses as of 01/10/2023) [facility] History of Past illness Narrative* Problem Noted Date Diagnosed Date Resolved Date Tendinitis of left wrist 05/14/201308/2022 Atrial septal defect and mitral stenosis 11/30/2012 documented as of this encounter (statuses as of 01/28/2023) [facility] History of Past illness Narrative* Problem Noted Date Resolved Date Atrial septal defect and mitral stenosis 11/30/2012 documented as of this encounter (statuses as of 05/28/2021) [facility] History of Past illness Narrative* Problem Noted Date Resolved Date Atrial septal defect and mitral stenosis 11/30/2012 documented as of this encounter (statuses as of 06/14/2021) [facility] History of Past illness Narrative* Problem Noted Date Resolved Date Atrial septal defect and mitral stenosis 11/30/2012 documented as of this encounter (statuses as of 06/23/2021) [facility] History of Past illness Narrative* Problem Noted Date Resolved Date Atrial septal defect and mitral stenosis 11/30/2012 documented as of this encounter (statuses as of 06/24/2021) [facility] History of Past illness Narrative* Problem Noted Date Resolved Date Atrial septal defect and mitral stenosis 11/30/2012 documented as of this encounter (statuses as of 07/15/2021) [facility] History of Past illness Narrative* Problem Noted Date Resolved Date Atrial septal defect and mitral stenosis 11/30/2012 documented as of this encounter (statuses as of 07/20/2021) [facility] History of Past illness Narrative* Problem Noted Date Resolved Date Atrial septal defect and mitral stenosis 11/30/2012 documented as of this encounter (statuses as of 08/24/2021) [facility] History of Past illness Narrative* Problem Noted Date Resolved Date Atrial septal defect and mitral stenosis 11/30/2012 documented as of this encounter (statuses as of 09/16/2021) [facility] History of Past illness Narrative* Problem Noted Date Resolved Date Atrial septal defect and mitral stenosis 11/30/2012 documented as of this encounter (statuses as of 09/23/2021) [facility] History of Past illness Narrative* Problem Noted Date Resolved Date Atrial septal defect and mitral stenosis 11/30/2012 documented as of this encounter (statuses as of 10/15/2021) [facility] History of Past illness Narrative* Problem Noted Date Resolved Date Atrial septal defect and mitral stenosis 11/30/2012 documented as of this encounter (statuses as of 10/23/2021) [facility] History of Past illness Narrative* Problem Noted Date Resolved Date Atrial septal defect and mitral stenosis 11/30/2012 documented as of this encounter (statuses as of 11/03/2021) [facility] History of Past illness Narrative* Problem Noted Date Resolved Date Atrial septal defect and mitral stenosis 11/30/2012 documented as of this encounter (statuses as of 11/04/2021) [facility] History of Past illness Narrative* Problem Noted Date Resolved Date Atrial septal defect and mitral stenosis 11/30/2012 documented as of this encounter (statuses as of 11/05/2021) [facility] History of Past illness Narrative* Problem Noted Date Resolved Date Atrial septal defect and mitral stenosis 11/30/2012 documented as of this encounter (statuses as of 11/15/2021) [facility] History of Past illness Narrative* Problem Noted Date Resolved Date Atrial septal defect and mitral stenosis 11/30/2012 documented as of this encounter (statuses as of 11/17/2021) [facility] History of Past illness Narrative* Problem Noted Date Resolved Date Atrial septal defect and mitral stenosis 11/30/2012 documented as of this encounter (statuses as of 12/28/2021) [facility] History of Past illness Narrative* Problem Noted Date Resolved Date Atrial septal defect and mitral stenosis 11/30/2012 documented as of this encounter (statuses as of 02/04/2022) [facility] History of Past illness Narrative* Problem Noted Date Resolved Date Atrial septal defect and mitral stenosis 11/30/2012 documented as of this encounter (statuses as of 02/17/2022) [facility] History of Past illness Narrative* Problem Noted Date Resolved Date Atrial septal defect and mitral stenosis 11/30/2012 documented as of this encounter (statuses as of 03/02/2022) [facility] History of Past illness Narrative* Problem Noted Date Resolved Date Atrial septal defect and mitral stenosis 11/30/2012 documented as of this encounter (statuses as of 03/22/2022) [address]18-2013 History of Past illness Narrative* Problem Noted Date Resolved Date Atrial septal defect and mitral stenosis 11/30/2012 documented as of this encounter (statuses as of 03/22/2022) [facility] History of Past illness Narrative* Problem Noted Date Resolved Date Atrial septal defect and mitral stenosis 11/30/2012 documented as of this encounter (statuses as of 04/19/2022) [address]18-2013 History of Past illness Narrative* Problem Noted Date Resolved Date Atrial septal defect and mitral stenosis 11/30/2012 documented as of this encounter (statuses as of 05/19/2022) [facility] Diagnosis GERD without esophagitis Esophageal reflux Type 2 diabetes mellitus without complication, without long-term current use of insulin ([facility]) Dyspnea, unspecified type Chronic obstructive pulmonary disease, unspecified COPD type (HCC) DDD (degenerative disc disease), lumbar Degeneration of lumbar or lumbosacral intervertebral disc documented in this encounter [facility] Diagnosis GERD without esophagitis- Primary Esophageal reflux DDD (degenerative disc disease), lumbar Degeneration of lumbar or lumbosacral intervertebral disc documented [facility] this encounter [facility] Diagnosis Type 2 diabetes mellitus without complication, without long-term current use of insulin (HCC) GERD without esophagitis Esophageal reflux DDD (degenerative disc disease), lumbar Degeneration of lumbar or lumbosacral intervertebral disc documented [facility] this encounter [facility] Diagnosis DDD (degenerative disc disease), lumbar Degeneration of lumbar or lumbosacral intervertebral disc documented in this encounter [facility] Diagnosis DDD (degenerative disc disease), lumbar Degeneration of lumbar or lumbosacral intervertebral disc documented [facility] this encounter [facility] Diagnosis DDD (degenerative disc disease), lumbar Degeneration of lumbar or lumbosacral intervertebral disc Type 2 diabetes mellitus without complication, without long-term current use of insulin ([facility]) documented [facility] this encounter [facility] Diagnosis Nonrheumatic aortic valve stenosis- Primary Aortic valve disorders Bicuspid aortic valve Congenital insufficiency of aortic valve LVH (left ventricular hypertrophy) Cardiomegaly Primary hypertension Unspecified essential hypertension Hyperlipidemia, unspecified hyperlipidemia type Type 2 diabetes mellitus with microalbuminuria, with long-term current use of insulin ([facility]) Microalbuminuria Proteinuria Chronic bronchitis, simple (HCC) Simple chronic bronchitis Sleep apnea, unspecified type Restrictive lung disease Other diseases of lung, not elsewhere classified Bipolar 1 disorder (HCC) Bipolar I disorder, most recent episode (or current) unspecified Morbid obesity with BMI of 50.0-59.9, adult ([facility]) Morbid obesity GERD without esophagitis Esophageal reflux Age-related cataract of both eyes, unspecified age-related cataract type Vitamin D deficiency Unspecified vitamin D deficiency Fatigue, unspecified type Current use of proton pump inhibitor Encounter for long-term (current) use of other medications Nocturnal oxygen desaturation Idiopathic sleep related nonobstructive alveolar hypoventilation documented [facility] this [facility] Diagnosis Controlled type 2 diabetes mellitus with diabetic neuropathy, with long-term current use of insulin ([facility])- Primary documented in this encounter [facility] Diagnosis Controlled type 2 diabetes mellitus with diabetic neuropathy, with long-term current use of insulin ([facility])- Primary documented [facility] this encounter [facility] Diagnosis DDD (degenerative disc disease), lumbar Degeneration of lumbar or lumbosacral intervertebral disc documented [facility] this encounter [facility]* Diagnosis DDD (degenerative disc disease), lumbar Degeneration of lumbar or lumbosacral intervertebral disc [facility]* Diagnosis Controlled type 2 diabetes mellitus with diabetic neuropathy, with long-term current use of insulin (HCC)- Primary [facility] Diagnosis Controlled type 2 diabetes mellitus with diabetic neuropathy, with long-term current use of insulin ([facility]) [facility] Diagnosis Controlled type 2 diabetes mellitus with diabetic neuropathy, with long-term current use of insulin ([facility])- Primary Encounter for immunization Need for other specified prophylactic vaccination against single bacterial disease Morbid obesity with BMI of 50.0-59.9, adult (HCC) Morbid obesity Chronic bronchitis, simple (HCC) Simple chronic bronchitis Type 2 diabetes mellitus with microalbuminuria, with long-term current use of insulin (HCC) Bipolar 1 disorder (HCC) Bipolar I disorder, most recent episode (or current) unspecified Bicuspid aortic valve Congenital insufficiency of aortic valve Hyperlipidemia, unspecified hyperlipidemia type Primary hypertension Unspecified essential hypertension Nonrheumatic aortic valve stenosis Aortic valve disorders LVH (left ventricular hypertrophy) Cardiomegaly Sleep apnea, unspecified type Restrictive lung disease Other diseases of lung, not elsewhere classified Microalbuminuria Proteinuria Screening for lung cancer Screening for colon cancer Special screening for malignant neoplasms, colon [facility] Diagnosis Nonrheumatic aortic valve stenosis- Primary Aortic valve disorders Bicuspid aortic valve Congenital insufficiency of aortic valve Edema, unspecified type Chronic diastolic heart failure (HCC) Chronic diastolic heart failure Hyperlipidemia, unspecified hyperlipidemia type Primary hypertension Unspecified essential hypertension Controlled type 2 diabetes mellitus with diabetic neuropathy, with long-term current use of insulin ([facility]) Morbid obesity with BMI of 50.0-59.9, adult ([facility]) Morbid obesity [facility] Diagnosis Type 2 diabetes mellitus without retinopathy ([facility])- Primary Type II or unspecified type diabetes mellitus without mention of complication, not stated as uncontrolled Combined forms of age-related cataract of both eyes Other and combined forms of senile cataract Dry eye syndrome of bilateral lacrimal glands Tear film insufficiency, unspecified Glaucoma suspect of both eyes Preglaucoma, unspecified [facility] Diagnosis GERD without esophagitis Esophageal reflux Type 2 diabetes mellitus without complication, without long-term current use of insulin ([facility]) [facility] Diagnosis Primary hypertension- Primary Unspecified essential hypertension Controlled type 2 diabetes mellitus with diabetic neuropathy, with long-term current use of insulin ([facility]) Chronic back pain, unspecified back location, unspecified back pain laterality [facility]* Diagnosis Type 2 diabetes mellitus without retinopathy ([facility])- Primary Type II or unspecified type diabetes mellitus without mention of complication, not stated as uncontrolled Combined forms of age-related cataract of both eyes Other and combined forms of senile cataract Dry eye syndrome of bilateral lacrimal glands Tear film insufficiency, unspecified Glaucoma suspect of both eyes Preglaucoma, unspecified documented [facility]* Diagnosis Encounter for screening for lung cancer- Primary Tobacco use current [facility]* Diagnosis DDD (degenerative disc disease), lumbar Degeneration of lumbar or lumbosacral intervertebral disc documented [facility]* Diagnosis MANISH (obstructive sleep apnea)- Primary Obstructive sleep apnea (adult) (pediatric) documented [facility]* Diagnosis Bilateral leg edema- Primary Edema documented [facility]* Diagnosis Dyspnea, unspecified type Chronic obstructive pulmonary disease, unspecified COPD type ([facility]) documented [facility]* Diagnosis DDD (degenerative disc disease), lumbar- Primary Degeneration of lumbar or lumbosacral intervertebral disc Morbid obesity with BMI of 50.0-59.9, adult ([facility]) Morbid obesity LVH (left ventricular hypertrophy) Cardiomegaly Restrictive lung disease Other diseases of lung, not elsewhere classified documented [facility] this encounter [facility]* Diagnosis Lumbar radiculopathy- Primary Thoracic or lumbosacral neuritis or radiculitis, unspecified Controlled type 2 diabetes mellitus with diabetic neuropathy, with long-term current use of insulin ([facility]) Bicuspid aortic valve Congenital insufficiency of aortic valve Nonrheumatic aortic valve stenosis Aortic valve disorders LVH (left ventricular hypertrophy) Cardiomegaly Primary hypertension Unspecified essential hypertension Hyperlipidemia, unspecified hyperlipidemia type Chronic bronchitis, simple ([facility]) Simple chronic bronchitis Sleep apnea, unspecified type GERD without esophagitis Esophageal reflux Type 2 diabetes mellitus with microalbuminuria, with long-term current use of insulin ([facility]) Morbid obesity with BMI of 50.0-59.9, adult ([facility]) Morbid obesity Microalbuminuria Proteinuria documented [facility]* Diagnosis Aortic valve stenosis, etiology of cardiac valve disease unspecified- Primary Bicuspid aortic valve Congenital insufficiency of aortic valve documented in this encounter [facility]* Diagnosis Bicuspid aortic valve Congenital insufficiency of aortic valve Nonrheumatic aortic valve stenosis Aortic valve disorders [facility]* Diagnosis Controlled type 2 diabetes mellitus with diabetic neuropathy, with long-term current use of insulin (HCC) documented in this encounter [facility]* Diagnosis Controlled type 2 diabetes mellitus with diabetic neuropathy, with long-term current use of insulin (HCC) documented in this encounter [facility]* Diagnosis Open wound of right lower extremity, subsequent encounter- Primary documented in this encounter [facility]* Diagnosis Bacterial pneumonia- Primary Bacterial pneumonia, unspecified Nonrheumatic aortic valve stenosis Aortic valve disorders DDD (degenerative disc disease), lumbar Degeneration of lumbar or lumbosacral intervertebral disc Controlled type 2 diabetes mellitus with diabetic neuropathy, with long-term current use of insulin (HCC) Bicuspid aortic valve Congenital insufficiency of aortic valve Sleep apnea, unspecified type Chronic bronchitis, simple (HCC) Simple chronic bronchitis Essential hypertension Unspecified essential hypertension Morbid obesity with BMI of 50.0-59.9, adult (HCC) Morbid obesity Leg cramps Cramp of limb Vision changes Unspecified visual disturbance Headache, unspecified headache type Gastroesophageal reflux disease with esophagitis without hemorrhage Open wound of right lower extremity, subsequent encounter Cutaneous abscess of right lower extremity Cellulitis and abscess of leg, except foot Cellulitis of skin Cellulitis and abscess of unspecified site documented in this encounter [facility]* Diagnosis Cutaneous abscess of right lower extremity Cellulitis and abscess of leg, except foot Cellulitis of skin Cellulitis and abscess of unspecified site documented in this encounter [facility]* Diagnosis Encounter for preprocedural cardiovascular examination- Primary Pre-operative cardiovascular examination Sleep apnea, unspecified type Bicuspid aortic valve Congenital insufficiency of aortic valve Nonrheumatic aortic valve stenosis Aortic valve disorders Preoperative testing Preoperative examination, unspecified [facility]* Diagnosis Encounter for preprocedural cardiovascular examination Pre-operative cardiovascular examination Sleep apnea, unspecified type Bicuspid aortic valve Congenital insufficiency of aortic valve Nonrheumatic aortic valve stenosis Aortic valve disorders Preoperative testing Preoperative examination, unspecified Valvular heart disease Endocarditis, valve unspecified, unspecified cause documented [facility] this encounter [facility]* Diagnosis Encounter for preprocedural cardiovascular examination Pre-operative cardiovascular examination Sleep apnea, unspecified type Bicuspid aortic valve Congenital insufficiency of aortic valve Nonrheumatic aortic valve stenosis Aortic valve disorders Preoperative testing Preoperative examination, unspecified Valvular heart disease Endocarditis, valve unspecified, unspecified cause documented in this encounter [facility]* Diagnosis Encounter for preprocedural cardiovascular examination Pre-operative cardiovascular examination Sleep apnea, unspecified type Bicuspid aortic valve Congenital insufficiency of aortic valve Nonrheumatic aortic valve stenosis Aortic valve disorders Preoperative testing Preoperative examination, unspecified Valvular heart disease Endocarditis, valve unspecified, unspecified cause documented in this encounter [facility]* Diagnosis Encounter for preprocedural cardiovascular examination Pre-operative cardiovascular examination Sleep apnea, unspecified type Bicuspid aortic valve Congenital insufficiency of aortic valve Nonrheumatic aortic valve stenosis Aortic valve disorders Preoperative testing Preoperative examination, unspecified Valvular heart disease Endocarditis, valve unspecified, unspecified cause documented in this encounter [facility]* Diagnosis Blister (nonthermal), right foot, initial encounter- Primary Bilateral lower extremity edema Edema Dependent rubor Unspecified erythematous condition Open wound of right lower extremity, subsequent encounter Controlled type 2 diabetes mellitus with diabetic neuropathy, with long-term current use of insulin ([facility]) documented in this encounter [facility]* Diagnosis Venous insufficiency- Primary Unspecified venous (peripheral) insufficiency Diminished pulses in lower extremity Other symptoms involving cardiovascular system Ingrowing toenail Ingrowing nail Diabetic mononeuropathy associated with diabetes mellitus due to underlying condition (HCC) Blister Other, multiple, and unspecified sites, blister, without mention of infection Blister (nonthermal), right foot, initial encounter Controlled type 2 diabetes mellitus with diabetic neuropathy, with long-term current use of insulin (HCC) Peripheral vascular disease (HCC) Peripheral vascular disease, unspecified documented in this encounter [facility]* Diagnosis Dyspnea, unspecified type Chronic obstructive pulmonary disease, unspecified COPD type ([facility]) documented in this encounter [facility]* Diagnosis Encounter for screening for lung cancer Tobacco use current documented in this encounter [facility]* Diagnosis Severe aortic stenosis [I35.0]- Primary Aortic valve disorders documented [facility]* Diagnosis Preoperative testing- Primary Preoperative examination, unspecified Encounter for preprocedural cardiovascular examination Pre-operative cardiovascular examination Severe aortic stenosis Aortic valve disorders documented [facility] this [facility]* Diagnosis DDD (degenerative disc disease), lumbar Degeneration of lumbar or lumbosacral intervertebral disc documented in this encounter [facility] for referral (narrative)* Outpatient Procedure (Routine) - Authorized Specialty Diagnoses / Procedures Referred By Ade t Referred To Contact [facility] Diagnoses Bicuspid aortic valve Nonrheumatic aortic valve stenosis Procedures ECHO ECHO TTHRC R-T 2D W/WOM-MODE COMPL SPEC&COLR D Kathy Colbert APRN.RESERVOIR CARETAKER [address] [place] [address] [facility] [place] [address] [place] [address] Referral ID Status Reason Start Date Expiration Date Visits Requested Visits Authorized [id number] Authorized Auto-Generat ed Referral 05/23/2022 05/23/2023 1 1 [facility] for referral (narrative)* Outpatient Procedure (Routine) - Authorized Specialty Diagnoses / Procedures Referred By Ade Referred To Contact [facility] Diagnoses Diminished pulses in lower extremity Diabetic mononeuropathy associated with diabetes mellitus due to underlying condition (HCC) Procedures PVR ANK PRESS SOY VAS LAB NON-INVAS PHYSIOLOGIC STD EXTREMITY ART 2 LEVEL Estelle Cardenas [address] [place] [address] [facility] [address] [place] [address] Referral ID Status Reason Start Date Expiration Date Visits Requested Visits Authorized [id number] Authorized Auto-Generat ed Referral 3 12/05/2023 1 1 * Diagnostic Procedure Only (Routine) - Closed Specialty Diagnoses / Procedures Referred By Ade kong Referred To Contact XR IMAGING Diagnoses Venous insufficiency Procedures XR TIBIA FIBULA 2V AP/LAT RIGHT RADIOLOGIC EXAMINATION TIBIA & FIBULA 2 VIEWS Estelle Cardenas [address] [place] [address] [place] [address] Referral ID Status Reason Start Date Expiration Date V isits Requested Visits Authorized [id number] Closed Auto-Generate d Referral 12/05/2022 01/04/2024 1 1 * Diagnostic Procedure Only (Routine) - Closed Specialty Diagnoses / Procedures Referred By Contac t Referred To Contact XR IMAGING Diagnoses Venous insufficiency Blister Procedures XR FOOT GENERAL 3V AP/LAT/OBL RIGHT RADEX FOOT COMPLETE MINIMUM 3 VIEWS Estelle Cardenas [address] [place] [address] [place] [address] Referral ID Status Reason Start Date Expiration Date V isits Requested Visits Authorized [id number] Closed Auto-Generate d Referral 12/05/2022 01/04/2024 1 1 [facility] for referral (narrative)* Outpatient Procedure (Routine) - Authorized Specialty Diagnoses / Procedures Referred By Contac t Referred To Contact [facility] Diagnoses Preoperative testing Encounter for preprocedural cardiovascular examination Severe aortic stenosis Procedures US CAROTID ARTERIES SOY VAS LAB DUPLEX SCAN EXTRACRANIAL ART COMPL BI STUDY Lisa Foster APRN.RESERVOIR CARETAKER [address] [place] [address] [facility] [place] [address] [place] [address] Referral ID Status Reason Start Date Expiration Date Visits Requested Visits Authorized [id number] Authorized Auto-Generat ed Referral 12/21/2022 12/21/2023 1 1 [facility] for visit Narrative* Outpatient Procedure (Routine) - Closed Specialty Diagnoses / Procedures Referred By Contac t Referred To Contact HEART AND [facility] Diagnoses Bicuspid aortic valve Nonrheumatic aortic valve stenosis Procedures ECHO ECHO TTHRC R-T 2D W/WOM-MODE COMPL SPEC&COLR D Kathy Colbert APRN.RESERVOIR CARETAKER [address] [place] [address] [facility] [place] [address] [place] [address] Referral ID Status Reason Start Date Expiration Date V isits Requested Visits Authorized [id number] Closed Auto-Generate d Referral 05/23/2022 05/23/2023 1 1 [facility] Concerns Infection Onset Date Last Indicated Resolved Time COVID-19 Rule-Out 12/13/2020 12/13/2020 12/14/2020 3:01 PM EDT Reason for Referral Specialty Diagnoses / Procedures Referred By Contac t Referred To Contact Cardiology Diagnoses Nonrheumatic aortic valve stenosis Bicuspid aortic valve LVH (left ventricular hypertrophy) Primary hypertension Hyperlipidemia, unspecified hyperlipidemia type Procedures CONSULT TO CARDIOLOGY OFFICE/OUTPATIENT [facility] 60-74 MINUTES Scott Livingston PA-C [address] [place] [address] Referral ID Status Reason Start Date Expiration Date Visits Requested Visits Authorized [id number] Pending Review PCP Requested Referral 10/22/2021 10/22/2022 1 1 Specialty Diagnoses / Procedures Referred By Contac t Referred To Contact Ophthalmology Diagnoses Type 2 diabetes mellitus with microalbuminuria, with long-term current use of insulin (HCC) Age-related cataract of both eyes, unspecified age-related cataract type Procedures CONSULT TO OPHTHALMOLOGY OFFICE/OUTPATIENT [facility] 60-74 MINUTES Scott Livingston PA-C [address] [place] [address] Referral ID Status Reason Start Date Expiration Date Visits Requested Visits Authorized [id number] Pending Review PCP Requested Referral 10/22/2021 10/22/2022 1 1 Specialty Diagnoses / Procedures Referred By Contac t Referred To Contact [facility] Diagnoses Nonrheumatic aortic valve stenosis Bicuspid aortic valve LVH (left ventricular hypertrophy) Procedures ECHO ECHO TTHRC R-T 2D W/WOM-MODE COMPL SPEC&COLR D Scott Livingston PA-C [address] [place] [address] [facility] [place] [address] [place] [address] Referral ID Status Reason Start Date Expiration Date Visits Requested Visits Authorized [id number] Authorized Auto-Generat ed Referral 10/22/2021 10/22/2022 1 1 Specialty Diagnoses / Procedures Referred By Contac t Referred To Contact Ophthalmology Diagnoses Type 2 diabetes mellitus with microalbuminuria, with long-term current use of insulin (HCC) Controlled type 2 diabetes mellitus with diabetic neuropathy, with long-term current use of insulin (HCC) Procedures CONSULT TO OPHTHALMOLOGY OFFICE/OUTPATIENT [facility] 60-[place] [address] [place] [address] Referral ID Status Reason Start Date Expiration Date Visits Requested Visits Authorized [id number] Pending Review PCP Requested Referral 05/20/2022 05/20/2023 1 1 Specialty Diagnoses / Procedures Referred By Contac t Referred To Contact Cardiology Diagnoses Bicuspid aortic valve Procedures CONSULT TO CARDIOLOGY OFFICE/OUTPATIENT [facility] 60-74 MINUTES Juan Miguel Arthur MD [address] [place] [address] Referral ID Status Reason Start Date Expiration Date Visits Requested Visits Authorized [id number] Pending Review PCP Requested Referral 05/20/2022 05/20/2023 1 1 Specialty Diagnoses / Procedures Referred By Contac t Referred To Contact CT IMAGING Diagnoses Encounter for screening for lung cancer Tobacco use current Procedures CT LUNG SCREEN WO IVCON COMPUTED TOMOGRAPHY THORAX LW DOSE LNG CA SCR Nathen- Amauri Jo, SANDFILL OPERATOR.RESERVOIR CARETAKER [address] [place] [address] Ct Imaging Referral ID Status Reason Start Date Expiration Date Visits Requested Visits Authorized [id number] Pending Review Auto-Generat ed Referral 07/16/2023 08/14/2023 1 1 Specialty Diagnoses / Procedures Referred By Contac t Referred To Contact Diagnoses Dyspnea, unspecified type Chronic obstructive pulmonary disease, unspecified COPD type (HCC) Juan Miguel Arthur MD [address] [place] [address] Referral ID Status Reason Start Date Expiration Date V isits Requested Visits Authorized [id number] Pending Review 1 1 Specialty Diagnoses / Procedures Referred By Contac t Referred To Contact Diagnoses Lumbar radiculopathy Procedures CONSULT TO SPINE SURGERY Juan Miguel Arthur MD [address] [place] [address] Referral ID Status Reason Start Date Expiration Date Visits Requested Visits Authorized [id number] Ref Not Required PCP Requested Referral 09/28/2022 09/28/2023 1 1 Specialty Diagnoses / Procedures Referred By Contac t Referred To Contact Cardiothoracic Surgery Diagnoses Aortic valve stenosis, etiology of cardiac valve disease unspecified Bicuspid aortic valve Procedures CONSULT TO CARDIOTHORACIC SURGERY Kathy Colbert, SANDFILL OPERATOR.RESERVOIR CARETAKER [address] [place] [address] Benjamin Calhoun MD [address] [place] [address] Referral ID Status Reason Start Date Expiration Date Visits Requested Visits Authorized [id number] Ref Not Required PCP Requested Referral 10/03/2022 10/03/2023 1 1 Specialty Diagnoses / Procedures Referred By Contac t Referred To Contact General Surgery Diagnoses Cutaneous abscess of right lower extremity Cellulitis of skin Procedures CONSULT TO GENERAL SURGERY OFFICE/OUTPATIENT [facility] 60-74 MINUTES Juan Miguel Arthur MD [address] [place] [address] Referral ID Status Reason Start Date Expiration Date Visits Requested Visits Authorized [id number] Pending Review PCP Requested Referral 10/25/2022 10/25/2023 1 1 Specialty Diagnoses / Procedures Referred By Contac t Referred To Contact MR IMAGING Diagnoses Vision changes Headache, unspecified headache type Procedures MRI BRAIN WO IVCON MRI BRAIN BRAIN STEM W/O CONTRAST MATERIAL Juan Miguel Arthur MD [address] [place] [address] [place] [address] Referral ID Status Reason Start Date Expiration Date Visits Requested Visits Authorized [id number] Pending Review Auto-Generat ed Referral 10/25/2022 11/24/2023 1 1 Specialty Diagnoses / Procedures Referred By Contac t Referred To Contact CT IMAGING Diagnoses Encounter for preprocedural cardiovascular examination Sleep apnea, unspecified type Bicuspid aortic valve Nonrheumatic aortic valve stenosis Preoperative testing Procedures CTA CHEST (GATED) WO/W IVCON CT ANGIOGRAPHY CHEST W/CONTRAST/NONCONTRAST Lisa Foster APRN.RESERVOIR CARETAKER [address] [place] [address] [place] [address] Referral ID Status Reason Start Date Expiration Date Visits Requested Visits Authorized [id number] Pending Review Auto-Generat ed Referral 11/08/2022 12/08/2023 1 1 Specialty Diagnoses / Procedures Referred By Contac t Referred To Contact CT IMAGING Diagnoses Encounter for preprocedural cardiovascular examination Sleep apnea, unspecified type Bicuspid aortic valve Nonrheumatic aortic valve stenosis Preoperative testing Procedures CTA ABD/PEL W IVCON CT ANGIO ABD&PLVIS CNTRST MTRL W/WO CNTRST IMGES Lisa Foster APRN.RESERVOIR CARETAKER [address] [place] [address] Ct Imaging [facility] Referral ID Status Reason Start Date Expiration Date Visits Requested Visits Authorized [id number] Pending Review Auto-Generat ed Referral 11/08/2022 12/08/2023 1 1 Specialty Diagnoses / Procedures Referred By Contac t Referred To Contact [facility] Diagnoses Encounter for preprocedural cardiovascular examination Sleep apnea, unspecified type Bicuspid aortic valve Nonrheumatic aortic valve stenosis Preoperative testing Procedures LUNG VOLUMES Lisa Foster APRN.RESERVOIR CARETAKER [address] [place] [address] [facility] [place] [address] [place] [address] Referral ID Status Reason Start Date Expiration Date Visits Requested Visits Authorized [id number] Pending Review Auto-Generat ed Referral 11/08/2022 12/08/2023 1 1 Specialty Diagnoses / Procedures Referred By Contac t Referred To Contact [facility] Diagnoses Encounter for preprocedural cardiovascular examination Sleep apnea, unspecified type Bicuspid aortic valve Nonrheumatic aortic valve stenosis Preoperative testing Procedures LUNG DIFFUSION CAPACITY (DLCO) DIFFUSING CAPACITY Lisa Foster APRN.RESERVOIR CARETAKER [address] [place] [address] [facility] [place] [address] [place] [address] Referral ID Status Reason Start Date Expiration Date Visits Requested Visits Authorized [id number] Pending Review Auto-Generat ed Referral 11/08/2022 12/08/2023 1 1 Specialty Diagnoses / Procedures Referred By Contac t Referred To Contact [facility] Diagnoses Encounter for preprocedural cardiovascular examination Sleep apnea, unspecified type Bicuspid aortic valve Nonrheumatic aortic valve stenosis Preoperative testing Procedures SPIROMETRY BASELINE ONLY SPMTRY W/VC EXPIRATORY JUAN W/WO MXML VOL VNTJ Lisa Foster, SANDFILL OPERATOR.RESERVOIR CARETAKER [address] [place] [address] [facility] [place] [address] [place] [address] Referral ID Status Reason Start Date Expiration Date Visits Requested Visits Authorized [id number] Pending Review Auto-Generat ed Referral 11/08/2022 12/08/2023 1 1 Specialty Diagnoses / Procedures Referred By Contac t Referred To Contact Juan Miguel Arthur MD [address] [place] [address] Referral ID Status Reason Start Date Expiration Date V isits Requested Visits Authorized [id number] Pending Review 1 1 Specialty Diagnoses / Procedures Referred By Contac t Referred To Contact Podiatry Diagnoses Blister (nonthermal), right foot, initial encounter Controlled type 2 diabetes mellitus with diabetic neuropathy, with long-term current use of insulin (HCC) Procedures CONSULT TO PODIATRY OFFICE/OUTPATIENT NEW HIGH MDM 60-74 MINUTES Cirilo Bacon MD [address] [place] [address] Referral ID Status Reason Start Date Expiration Date Visits Requested Visits Authorized [id number] Pending Review PCP Requested Referral 3 11/30/2023 1 1 Referral ID Status Reason Start Date Expiration Date Visits Re quested Visits Authorized [id number] Closed 1 1 Specialty Diagnoses / Procedures Referred By Contac t Referred To Contact CT IMAGING Diagnoses Encounter for screening for lung cancer Tobacco use current Procedures CT LUNG SCREEN WO IVCON COMPUTED TOMOGRAPHY THORAX LW DOSE LNG CA SCR Nathen- Amauri Jo, SANDFILL OPERATOR.RESERVOIR CARETAKER [address] [place] [address] [place] [address] Referral ID Status Reason Start Date Expiration Date V isits Requested Visits Authorized [id number] Closed Auto-Generate d Referral 06/28/2022 07/28/2023 1 1 Referral ID Status Reason Start Date Expiration Date Visits Re quested Visits Authorized [id number] Closed 1 1 Medications Administered Section Active Administered Medications - up to 3 most recent administrations Medication Order MAR Action Action Date Dose Rate Site PHENYLephrine 2.5 % 1 Drop (AK-DILATE, DREAD-SYNEPHRINE) 1 Drop, BOTH EYES, DIRECTED, Starting on Mon05/31/22 at 1430, Until Mon06/01/22 at 0229, Administer for dilation PROTECT FROM LIGHT Given 05/31/2022 2:30 PM EDT 1 Drop proparacaine 0.5 % 1 Drop (ALCAINE) 1 Drop, BOTH EYES, DIRECTED, Starting on Mon05/31/22 at 1430, Until Mon06/01/22 at 0229, Administer for pneumo tonometry, tonopen tonometry, or pachymetry. In the event of a proparacaine shortage, administer tetracaine 0.5% ophthalmic drops 1 drop in the left eye as directed for pneumo tonometry, tonopen tonometry, or pachymetry Given 05/31/2022 2:30 PM EDT 1 Drop tropicamide 1 % 1 Drop (MYDRIACYL) 1 Drop, BOTH EYES, DIRECTED, Starting on Mon05/31/22 at 1430, Until Mon06/01/22 at 0229, Administer for dilation Given 05/31/2022 2:30 PM EDT 1 Drop Summary Purpose Family History No Family History Records FoundNo Family History Records Found Advance Directives No Advanced Directives Records FoundNo Advanced Directives Records Found Additional Source Comments Source Comments (unrecognize d section and content) In the event this informatio n is protected by the Federal Confidentiality of Alcohol and Drug Abuse Patient Records regulations: The Federal rules restrict any use of the information to criminally investigate or prosecute any alcohol or drug abuse patient.[facility] ShawIn the event this information is protected by the Federal Confidentiality of Alcohol and Drug Abuse Patient Records regulations: The Federal rules restrict any use of the information to criminally investigate or prosecute any alcohol or drug abuse patient.[facility] ShawIn the event this information is protected by the Federal Confidentiality of Alcohol and Drug Abuse Patient Records regulations: The Federal rules restrict any use of the information to criminally investigate or prosecute any alcohol or drug abuse patient.[facility] ShawIn the event this information is protected by the Federal Confidentiality of Alcohol and Drug Abuse Patient Records regulations: The Federal rules restrict any use of the information to criminally investigate or prosecute any alcohol or drug abuse patient.[facility] ShawIn the event this information is protected by the Federal Confidentiality of Alcohol and Drug Abuse Patient Records regulations: The Federal rules restrict any use of the information to criminally investigate or prosecute any alcohol or drug abuse patient.[facility] ShawIn the event this information is protected by the Federal Confidentiality of Alcohol and Drug Abuse Patient Records regulations: The Federal rules restrict any use of the information to criminally investigate or prosecute any alcohol or drug abuse patient.[facility] ShawIn the event this information is protected by the Federal Confidentiality of Alcohol and Drug Abuse Patient Records regulations: The Federal rules restrict any use of the information to criminally investigate or prosecute any alcohol or drug abuse patient.[facility] ShawIn the event this information is protected by the Federal Confidentiality of Alcohol and Drug Abuse Patient Records regulations: The Federal rules restrict any use of the information to criminally investigate or prosecute any alcohol or drug abuse patient.[facility] ShawIn the event this information is protected by the Federal Confidentiality of Alcohol and Drug Abuse Patient Records regulations: The Federal rules restrict any use of the information to criminally investigate or prosecute any alcohol or drug abuse patient.[facility] ShawIn the event this information is protected by the Federal Confidentiality of Alcohol and Drug Abuse Patient Records regulations: The Federal rules restrict any use of the information to criminally investigate or prosecute any alcohol or drug abuse patient.[facility] ShawIn the event this information is protected by the Federal Confidentiality of Alcohol and Drug Abuse Patient Records regulations: The Federal rules restrict any use of the information to criminally investigate or prosecute any alcohol or drug abuse patient.[facility] ShawIn the event this information is protected by the Federal Confidentiality of Alcohol and Drug Abuse Patient Records regulations: The Federal rules restrict any use of the information to criminally investigate or prosecute any alcohol or drug abuse patient.[facility] ShawIn the event this information is protected by the Federal Confidentiality of Alcohol and Drug Abuse Patient Records regulations: The Federal rules restrict any use of the information to criminally investigate or prosecute any alcohol or drug abuse patient.[facility] ShawIn the event this information is protected by the Federal Confidentiality of Alcohol and Drug Abuse Patient Records regulations: The Federal rules restrict any use of the information to criminally investigate or prosecute any alcohol or drug abuse patient.[facility] ShawIn the event this information is protected by the Federal Confidentiality of Alcohol and Drug Abuse Patient Records regulations: The Federal rules restrict any use of the information to criminally investigate or prosecute any alcohol or drug abuse patient.[facility] ShawIn the event this information is protected by the Federal Confidentiality of Alcohol and Drug Abuse Patient Records regulations: The Federal rules restrict any use of the information to criminally investigate or prosecute any alcohol or drug abuse patient.[facility] ShawIn the event this information is protected by the Federal Confidentiality of Alcohol and Drug Abuse Patient Records regulations: The Federal rules restrict any use of the information to criminally investigate or prosecute any alcohol or drug abuse patient.[facility] ShawIn the event this information is protected by the Federal Confidentiality of Alcohol and Drug Abuse Patient Records regulations: The Federal rules restrict any use of the information to criminally investigate or prosecute any alcohol or drug abuse patient.[facility] ShawIn the event this information is protected by the Federal Confidentiality of Alcohol and Drug Abuse Patient Records regulations: The Federal rules restrict any use of the information to criminally investigate or prosecute any alcohol or drug abuse patient.[facility] ShawIn the event this information is protected by the Federal Confidentiality of Alcohol and Drug Abuse Patient Records regulations: The Federal rules restrict any use of the information to criminally investigate or prosecute any alcohol or drug abuse patient.[facility] ShawIn the event this information is protected by the Federal Confidentiality of Alcohol and Drug Abuse Patient Records regulations: The Federal rules restrict any use of the information to criminally investigate or prosecute any alcohol or drug abuse patient.[facility] ShawIn the event this information is protected by the Federal Confidentiality of Alcohol and Drug Abuse Patient Records regulations: The Federal rules restrict any use of the information to criminally investigate or prosecute any alcohol or drug abuse patient.[facility] ShawIn the event this information is protected by the Federal Confidentiality of Alcohol and Drug Abuse Patient Records regulations: The Federal rules restrict any use of the information to criminally investigate or prosecute any alcohol or drug abuse patient.[facility] ShawIn the event this information is protected by the Federal Confidentiality of Alcohol and Drug Abuse Patient Records regulations: The Federal rules restrict any use of the information to criminally investigate or prosecute any alcohol or drug abuse patient.[facility] ShawIn the event this information is protected by the Federal Confidentiality of Alcohol and Drug Abuse Patient Records regulations: The Federal rules restrict any use of the information to criminally investigate or prosecute any alcohol or drug abuse patient.[facility] ShawIn the event this information is protected by the Federal Confidentiality of Alcohol and Drug Abuse Patient Records regulations: The Federal rules restrict any use of the information to criminally investigate or prosecute any alcohol or drug abuse patient.[facility] ShawIn the event this information is protected by the Federal Confidentiality of Alcohol and Drug Abuse Patient Records regulations: The Federal rules restrict any use of the information to criminally investigate or prosecute any alcohol or drug abuse patient.[facility] ShawIn the event this information is protected by the Federal Confidentiality of Alcohol and Drug Abuse Patient Records regulations: The Federal rules restrict any use of the information to criminally investigate or prosecute any alcohol or drug abuse patient.[facility] ShawIn the event this information is protected by the Federal Confidentiality of Alcohol and Drug Abuse Patient Records regulations: The Federal rules restrict any use of the information to criminally investigate or prosecute any alcohol or drug abuse patient.[facility] ShawIn the event this information is protected by the Federal Confidentiality of Alcohol and Drug Abuse Patient Records regulations: The Federal rules restrict any use of the information to criminally investigate or prosecute any alcohol or drug abuse patient.[facility] ShawIn the event this information is protected by the Federal Confidentiality of Alcohol and Drug Abuse Patient Records regulations: The Federal rules restrict any use of the information to criminally investigate or prosecute any alcohol or drug abuse patient.[facility] ShawIn the event this information is protected by the Federal Confidentiality of Alcohol and Drug Abuse Patient Records regulations: The Federal rules restrict any use of the information to criminally investigate or prosecute any alcohol or drug abuse patient.[facility] ShawIn the event this information is protected by the Federal Confidentiality of Alcohol and Drug Abuse Patient Records regulations: The Federal rules restrict any use of the information to criminally investigate or prosecute any alcohol or drug abuse patient.[facility] ShawIn the event this information is protected by the Federal Confidentiality of Alcohol and Drug Abuse Patient Records regulations: The Federal rules restrict any use of the information to criminally investigate or prosecute any alcohol or drug abuse patient.[facility] ShawIn the event this information is protected by the Federal Confidentiality of Alcohol and Drug Abuse Patient Records regulations: The Federal rules restrict any use of the information to criminally investigate or prosecute any alcohol or drug abuse patient.[facility] ShawIn the event this information is protected by the Federal Confidentiality of Alcohol and Drug Abuse Patient Records regulations: The Federal rules restrict any use of the information to criminally investigate or prosecute any alcohol or drug abuse patient.[facility] ShawIn the event this information is protected by the Federal Confidentiality of Alcohol and Drug Abuse Patient Records regulations: The Federal rules restrict any use of the information to criminally investigate or prosecute any alcohol or drug abuse patient.[facility] ShawIn the event this information is protected by the Federal Confidentiality of Alcohol and Drug Abuse Patient Records regulations: The Federal rules restrict any use of the information to criminally investigate or prosecute any alcohol or drug abuse patient.[facility] ShawIn the event this information is protected by the Federal Confidentiality of Alcohol and Drug Abuse Patient Records regulations: The Federal rules restrict any use of the information to criminally investigate or prosecute any alcohol or drug abuse patient.[facility] ShawIn the event this information is protected by the Federal Confidentiality of Alcohol and Drug Abuse Patient Records regulations: The Federal rules restrict any use of the information to criminally investigate or prosecute any alcohol or drug abuse patient.[facility] ShawIn the event this information is protected by the Federal Confidentiality of Alcohol and Drug Abuse Patient Records regulations: The Federal rules restrict any use of the information to criminally investigate or prosecute any alcohol or drug abuse patient.[facility] ShawIn the event this information is protected by the Federal Confidentiality of Alcohol and Drug Abuse Patient Records regulations: The Federal rules restrict any use of the information to criminally investigate or prosecute any alcohol or drug abuse patient.[facility] ShawIn the event this information is protected by the Federal Confidentiality of Alcohol and Drug Abuse Patient Records regulations: The Federal rules restrict any use of the information to criminally investigate or prosecute any alcohol or drug abuse patient.[facility] ShawIn the event this information is protected by the Federal Confidentiality of Alcohol and Drug Abuse Patient Records regulations: The Federal rules restrict any use of the information to criminally investigate or prosecute any alcohol or drug abuse patient.[facility] ShawIn the event this information is protected by the Federal Confidentiality of Alcohol and Drug Abuse Patient Records regulations: The Federal rules restrict any use of the information to criminally investigate or prosecute any alcohol or drug abuse patient.[facility] ShawIn the event this information is protected by the Federal Confidentiality of Alcohol and Drug Abuse Patient Records regulations: The Federal rules restrict any use of the information to criminally investigate or prosecute any alcohol or drug abuse patient.[facility] ShawIn the event this information is protected by the Federal Confidentiality of Alcohol and Drug Abuse Patient Records regulations: The Federal rules restrict any use of the information to criminally investigate or prosecute any alcohol or drug abuse patient.[facility] ShawIn the event this information is protected by the Federal Confidentiality of Alcohol and Drug Abuse Patient Records regulations: The Federal rules restrict any use of the information to criminally investigate or prosecute any alcohol or drug abuse patient.[facility] ShawIn the event this information is protected by the Federal Confidentiality of Alcohol and Drug Abuse Patient Records regulations: The Federal rules restrict any use of the information to criminally investigate or prosecute any alcohol or drug abuse patient.[facility] ShawIn the event this information is protected by the Federal Confidentiality of Alcohol and Drug Abuse Patient Records regulations: The Federal rules restrict any use of the information to criminally investigate or prosecute any alcohol or drug abuse patient.[facility] ShawIn the event this information is protected by the Federal Confidentiality of Alcohol and Drug Abuse Patient Records regulations: The Federal rules restrict any use of the information to criminally investigate or prosecute any alcohol or drug abuse patient.[facility] ShawIn the event this information is protected by the Federal Confidentiality of Alcohol and Drug Abuse Patient Records regulations: The Federal rules restrict any use of the information to criminally investigate or prosecute any alcohol or drug abuse patient.[facility] ShawIn the event this information is protected by the Federal Confidentiality of Alcohol and Drug Abuse Patient Records regulations: The Federal rules restrict any use of the information to criminally investigate or prosecute any alcohol or drug abuse patient.[facility] ShawIn the event this information is protected by the Federal Confidentiality of Alcohol and Drug Abuse Patient Records regulations: The Federal rules restrict any use of the information to criminally investigate or prosecute any alcohol or drug abuse patient.[facility] ShawIn the event this information is protected by the Federal Confidentiality of Alcohol and Drug Abuse Patient Records regulations: The Federal rules restrict any use of the information to criminally investigate or prosecute any alcohol or drug abuse patient.[facility] ShawIn the event this information is protected by the Federal Confidentiality of Alcohol and Drug Abuse Patient Records regulations: The Federal rules restrict any use of the information to criminally investigate or prosecute any alcohol or drug abuse patient.[facility] ShawIn the event this information is protected by the Federal Confidentiality of Alcohol and Drug Abuse Patient Records regulations: The Federal rules restrict any use of the information to criminally investigate or prosecute any alcohol or drug abuse patient.[facility] ShawIn the event this information is protected by the Federal Confidentiality of Alcohol and Drug Abuse Patient Records regulations: The Federal rules restrict any use of the information to criminally investigate or prosecute any alcohol or drug abuse patient.[facility] ShawIn the event this information is protected by the Federal Confidentiality of Alcohol and Drug Abuse Patient Records regulations: The Federal rules restrict any use of the information to criminally investigate or prosecute any alcohol or drug abuse patient.[facility] ShawIn the event this information is protected by the Federal Confidentiality of Alcohol and Drug Abuse Patient Records regulations: The Federal rules restrict any use of the information to criminally investigate or prosecute any alcohol or drug abuse patient.[facility] ShawIn the event this information is protected by the Federal Confidentiality of Alcohol and Drug Abuse Patient Records regulations: The Federal rules restrict any use of the information to criminally investigate or prosecute any alcohol or drug abuse patient.[facility] ShawIn the event this information is protected by the Federal Confidentiality of Alcohol and Drug Abuse Patient Records regulations: The Federal rules restrict any use of the information to criminally investigate or prosecute any alcohol or drug abuse patient.[facility] ShawIn the event this information is protected by the Federal Confidentiality of Alcohol and Drug Abuse Patient Records regulations: The Federal rules restrict any use of the information to criminally investigate or prosecute any alcohol or drug abuse patient.[facility] ShawIn the event this information is protected by the Federal Confidentiality of Alcohol and Drug Abuse Patient Records regulations: The Federal rules restrict any use of the information to criminally investigate or prosecute any alcohol or drug abuse patient.[facility] ShawIn the event this information is protected by the Federal Confidentiality of Alcohol and Drug Abuse Patient Records regulations: The Federal rules restrict any use of the information to criminally investigate or prosecute any alcohol or drug abuse patient.[facility] ShawIn the event this information is protected by the Federal Confidentiality of Alcohol and Drug Abuse Patient Records regulations: The Federal rules restrict any use of the information to criminally investigate or prosecute any alcohol or drug abuse patient.[facility] ShawIn the event this information is protected by the Federal Confidentiality of Alcohol and Drug Abuse Patient Records regulations: The Federal rules restrict any use of the information to criminally investigate or prosecute any alcohol or drug abuse patient.[facility] ShawIn the event this information is protected by the Federal Confidentiality of Alcohol and Drug Abuse Patient Records regulations: The Federal rules restrict any use of the information to criminally investigate or prosecute any alcohol or drug abuse patient.[facility] ShawIn the event this information is protected by the Federal Confidentiality of Alcohol and Drug Abuse Patient Records regulations: The Federal rules restrict any use of the information to criminally investigate or prosecute any alcohol or drug abuse patient.[facility] ShawIn the event this information is protected by the Federal Confidentiality of Alcohol and Drug Abuse Patient Records regulations: The Federal rules restrict any use of the information to criminally investigate or prosecute any alcohol or drug abuse patient.[facility] ShawIn the event this information is protected by the Federal Confidentiality of Alcohol and Drug Abuse Patient Records regulations: The Federal rules restrict any use of the information to criminally investigate or prosecute any alcohol or drug abuse patient.[facility] ShawIn the event this information is protected by the Federal Confidentiality of Alcohol and Drug Abuse Patient Records regulations: The Federal rules restrict any use of the information to criminally investigate or prosecute any alcohol or drug abuse patient.[facility] ShawIn the event this information is protected by the Federal Confidentiality of Alcohol and Drug Abuse Patient Records regulations: The Federal rules restrict any use of the information to criminally investigate or prosecute any alcohol or drug abuse patient.[facility] ShawIn the event this information is protected by the Federal Confidentiality of Alcohol and Drug Abuse Patient Records regulations: The Federal rules restrict any use of the information to criminally investigate or prosecute any alcohol or drug abuse patient.[facility] ShawIn the event this information is protected by the Federal Confidentiality of Alcohol and Drug Abuse Patient Records regulations: The Federal rules restrict any use of the information to criminally investigate or prosecute any alcohol or drug abuse patient.[facility] Reason for Visit (unrecogniz ed section and content) Reason Onset Date Comments Community Monitoring Outreach 06/14/2021 [facility] program enrollment intro Reason Onset Date Comments Refill Request 11/16/2020 Refill Request 06/23/2021 Reason Onset Date Comments Refill Request 06/24/2021 Reason Onset Date Comments Population Health Navigation Outreach 07/15/2021 Navigator Jeff MCKEON care gap Reason Onset Date Comments Refill Request 07/20/2021 Reason Onset Date Comments Refill Request 08/24/2021 Reason Onset Date Comments Refill Request 09/16/2021 Reason Onset Date Comments Population Health Navigation Outreach 09/23/2021 [employer] Care Gap Reason Onset Date Comments Refill Request 10/15/2021 Reason Comments Physical Patient reports he w as in [facility] on 10/18/21 and was sent to ER for low SPO2 Reason Onset Date Comments Population Health Navigation Outreach 11/03/2021 [employer] Attribution Reason Comments Results Reason Comments Patient Question Reason Comments Blood Sugar Updates Reason Onset Date Comments Refill Request 11/17/2021 Reason Comments Refill Request Reason Onset Date Comments Refill Request 02/03/2022 Reason Comments Medication Problem Reason Onset Date Comments Refill Request 03/02/2022 Reason Onset Date Comments Refill Request 03/21/2022 Reason Onset Date Comments Population Health Navigation Outreach 03/22/2022 Care Gaps Reason Onset Date Comments Allied Health Visit 04/19/2022 Medication A dherence Outreach Reason Comments Forms Reason Comments Diabetes Reason Comments Established Patient Follow-Up Specialty Diagnoses / Procedures Referred By Contac t Referred To Contact Cardiology Diagnoses Bicuspid aortic valve Procedures CONSULT TO CARDIOLOGY OFFICE/OUTPATIENT [facility] 60-74 MINUTES Juan Miguel rAthur MD [address] [place] [address] Referral ID Status Reason Start Date Expiration Date Visits Requested Visits Authorized [id number] Pending Review PCP Requested Referral 05/20/2022 05/20/2023 1 1 Reason Comments Diabetes Blood sugar: 162A1c: 7.4 Blurred Vision Both Eyes Difficulty Reading Both Eyes Specialty Diagnoses / Procedures Referred By Ade t Referred To Contact Ophthalmology Diagnoses Type 2 diabetes mellitus with microalbuminuria, with long-term current use of insulin (HCC) Controlled type 2 diabetes mellitus with diabetic neuropathy, with long-term current use of insulin ([facility]) Procedures CONSULT TO OPHTHALMOLOGY OFFICE/OUTPATIENT [facility] 60-74 MINUTES Juan Miguel Arthur MD [address] [place] [address] Referral ID Status Reason Start Date Expiration Date Visits Requested Visits Authorized [id number] Pending Review PCP Requested Referral 05/20/2022 05/20/2023 1 1 Reason Onset Date Comments Refill Request 06/24/2022 Reason Comments Recheck BPWanting Shingles v accineWanting RX for scooter battery Reason Comments Glaucoma Suspect Follow Up Both eyes Reason Onset Date Comments Refill Request 07/20/2022 Reason Comments Orders CPAP Machine/Supplies Reason Onset Date Comments Refill Request 08/10/2022 Reason Onset Date Comments Refill Request 08/12/2022 Reason Comments Orders order for a motorize d scooter to go to [facility] Reason Comments Follow Up Reason Comments Appointment Appointment Reason Comments Patient Update Reason Comments Insurance Authorization Reason Comments Insurance Authorization john Reason Comments Pharmacy Call Reason Comments Hospital Follow Up Reason Comments Consult Cutaneous abscess of right lower extremity Specialty Diagnoses / Procedures Referred By Ade kong Referred To Contact General Surgery Diagnoses Cutaneous abscess of right lower extremity Cellulitis of skin Procedures CONSULT TO GENERAL SURGERY OFFICE/OUTPATIENT [facility] 60-74 MINUTES Juan Miguel Arthur MD [address] [place] [address] Referral ID Status Reason Start Date Expiration Date Visits Requested Visits Authorized [id number] Pending Review PCP Requested Referral 10/25/2022 10/25/2023 1 1 Reason Comments Patient Request/ CPAP Order Fax Reason Comments Orders Reason Comments Spirometry Specialty Diagnoses / Procedures Referred By Contac t Referred To Contact [facility] Diagnoses Encounter for preprocedural cardiovascular examination Sleep apnea, unspecified type Bicuspid aortic valve Nonrheumatic aortic valve stenosis Preoperative testing Procedures LUNG DIFFUSION CAPACITY (DLCO) DIFFUSING CAPACITY Lisa Foster, SANDFILL OPERATOR.RESERVOIR CARETAKER [address] [place] [address] [facility] [place] [address] Referral ID Status Reason Start Date Expiration Date V isits Requested Visits Authorized [id number] Closed Auto-Generate d Referral OON/Self Pay Override 11/08/2022 12/08/2023 1 1 Specialty Diagnoses / Procedures Referred By Contac t Referred To Contact [facility] Diagnoses Encounter for preprocedural cardiovascular examination Sleep apnea, unspecified type Bicuspid aortic valve Nonrheumatic aortic valve stenosis Preoperative testing Procedures LUNG VOLUMES Lisa Foster, SANDFILL OPERATOR.RESERVOIR CARETAKER [address] [place] [address] [facility] [place] [address] Referral ID Status Reason Start Date Expiration Date V isits Requested Visits Authorized [id number] Closed Auto-Generate d Referral OON/Self Pay Override 11/09/2022 02/12/2023 1 1 Specialty Diagnoses / Procedures Referred By Contac t Referred To Contact [facility] Diagnoses Encounter for preprocedural cardiovascular examination Sleep apnea, unspecified type Bicuspid aortic valve Nonrheumatic aortic valve stenosis Preoperative testing Procedures SPIROMETRY BASELINE ONLY SPMTRY W/VC EXPIRATORY JUAN W/WO MXML VOL VNTJ Lisa Foster, SANDFILL OPERATOR.RESERVOIR CARETAKER [address] [place] [address] [facility] [place] [address] [place] [address] Referral ID Status Reason Start Date Expiration Date V isits Requested Visits Authorized [id number] Closed Auto-Generate d Referral OON/Self Pay Override 11/08/2022 12/08/2023 1 1 Reason Onset Date Comments Refill Request 11/21/2022 Specialty Diagnoses / Procedures Referred By Contac t Referred To Contact CT IMAG[facility] Diagnoses Encounter for preprocedural cardiovascular examination Sleep apnea, unspecified type Bicuspid aortic valve Nonrheumatic aortic valve stenosis Preoperative testing Procedures CTA ABD/PEL W IVCON CT ANGIO ABD&PLVIS CNTRST MTRL W/WO CNTRST Lisa Jesus, SANDFILL OPERATOR.RESERVOIR CARETAKER [address] [place] [address] [facility] [place] [address] Referral ID Status Reason Start Date Expiration Date V isits Requested Visits Authorized [id number] Closed Auto-Generate d Referral 11/08/2022 12/08/2023 1 1 Reason Comments Future Appointment Reason Comments blister on R foot Reason Comments New Swelling Blister Specialty Diagnoses / Procedures Referred By Contac t Referred To Contact Podiatry Diagnoses Blister (nonthermal), right foot, initial encounter Controlled type 2 diabetes mellitus with diabetic neuropathy, with long-term current use of insulin (HCC) Procedures CONSULT TO PODIATRY OFFICE/OUTPATIENT NEW [facility] MDM 60-74 MINUTES Cirilo Bacon MD [address] [place] [address] Referral ID Status Reason Start Date Expiration Date Visits Requested Visits Authorized [id number] Pending Review PCP Requested Referral 11/30/2023 1 1 Reason Onset Date Comments Refill Request 12/09/2022 Reason Onset Date Comments Refill Request 12/09/[address] Specialty Diagnoses / Procedures Referred By Contac t Referred To Contact CT IMAGING Diagnoses Encounter for screening for lung cancer Tobacco use current Procedures CT LUNG SCREEN WO IVCON COMPUTED TOMOGRAPHY THORAX LW DOSE LNG CA Amauri Kapadia, SANDFILL OPERATOR.RESERVOIR CARETAKER [address] [place] [id number] [facility] [place] [address] Referral ID Status Reason Start Date Expiration Date V isits Requested Visits Authorized [id number] Closed Auto-Generate d Referral 06/28/2022 07/28/2023 1 1 Reason Comments Valvular Heart Disease Kiel is here t o review testing Reason Comments Orders Reason Comments multidisciplinary heart team meeting Reason Onset Date Comments Refill Request 12/29/2022 Reason Onset Date Comments Refill Request 01/09/2023 Reason Onset Date Comments Refill Request 01/27/2023 Care Teams (unrecognized sec tion and content) Lead Net Software Developer Relationship Specialty Start Date End Date Juan Miguel Arthur MD [address] [place] [address] PCP - General Family Practice 11/09/12 Lead Net Software Developer Relationship Specialty Start Date End Date Juan Miguel Arthur MD [address] [place] [address] PCP - General Family Practice 11/09/12 Lead Net Software Developer Relationship Specialty Start Date End Date Juan Miguel Arthur MD [address] [place] [address] PCP - General Family Practice 11/09/12 Lead Net Software Developer Relationship Specialty Start Date End Date Juan Miguel Arthur MD [address] [place] [address] PCP - General Family Practice 11/09/12 Lead Net Software Developer Relationship Specialty Start Date End Date Juan Miguel Arthur MD [address] [place] [address] PCP - General Family Practice 11/09/12 Lead Net Software Developer Relationship Specialty Start Date End Date Juan Miguel Arthur MD [address] [place] [address] PCP - General Family Practice 11/09/12 Lead Net Software Developer Relationship Specialty Start Date End Date Juan Miguel Arthur MD [address] [place] [address] PCP - General Family Practice 11/09/12 Lead Net Software Developer Relationship Specialty Start Date End Date Juan Miguel Arthur MD [address] [place] [address] PCP - General Family Practice 11/09/12 Lead Net Software Developer Relationship Specialty Start Date End Date Juan Miguel Arthur MD [address] [place] [address] PCP - General Family Medicine 11/09/12 Lead Net Software Developer Relationship Specialty Start Date End Date Juan Miguel Arthur MD [address] [place] [address] PCP - General Family Medicine 11/09/12 Lead Net Software Developer Relationship Specialty Start Date End Date Juan Miguel Arthur MD [address] [place] [address] PCP - General Family Medicine 11/09/12 Lead Net Software Developer Relationship Specialty Start Date End Date Juan Miguel Arthur MD [address] [place] [address] PCP - General Family Medicine 11/09/12 Lead Net Software Developer Relationship Specialty Start Date End Date Juan Miguel Arthur MD [address] [place] [address] PCP - General Family Medicine 11/09/12 Lead Net Software Developer Relationship Specialty Start Date End Date Juan Miguel Arthur MD [address] [place] [address] PCP - General Family Medicine 11/09/12 Lead Net Software Developer Relationship Specialty Start Date End Date Juan Miguel Arthur MD [address] [place] [address] PCP - General Family Medicine 11/09/12 Lead Net Software Developer Relationship Specialty Start Date End Date Juan Miguel Arthur MD [address] [place] [address] PCP - General Family Medicine 11/09/12 Lead Net Software Developer Relationship Specialty Start Date End Date Juan Miguel Arthur MD [address] [place] [address] PCP - General Family Medicine 11/09/12 Lead Net Software Developer Relationship Specialty Start Date End Date Juan Miguel Arthur MD [address] [place] [address] PCP - General Family Medicine 11/09/12 Lead Net Software Developer Relationship Specialty Start Date End Date Juan Miguel Arthur MD [address] [place] [address] PCP - General Family Medicine 11/09/12 Lead Net Software Developer Relationship Specialty Start Date End Date Juan Miguel Arthur MD [address] [place] [address] PCP - General Family Medicine 11/09/12 Lead Net Software Developer Relationship Specialty Start Date End Date Juan Miguel Arthur MD [address] [place] [address] PCP - General Family Medicine 11/09/12 Lead Net Software Developer Relationship Specialty Start Date End Date Juan Miguel Arthur MD [address] [place] [address] PCP - General Family Medicine 11/09/12 Lead Net Software Developer Relationship Specialty Start Date End Date Juan Miguel Arthur MD [address] [place] [address] PCP - General Family Medicine 11/09/12 Lead Net Software Developer Relationship Specialty Start Date End Date Juan Miguel Arthur MD [address] [place] [address] PCP - General Family Medicine 11/09/12 Lead Net Software Developer Relationship Specialty Start Date End Date Juan Miguel Arthur MD [address] [place] [address] PCP - General Family Medicine 11/09/12 Lead Net Software Developer Relationship Specialty Start Date End Date Juan Miguel Arthur MD [address] [place] [address] PCP - General Family Medicine 11/09/12 Lead Net Software Developer Relationship Specialty Start Date End Date Juan Miguel Arthur MD [address] [place] [address] PCP - General Family Medicine 11/09/12 Lead Net Software Developer Relationship Specialty Start Date End Date Juan Miguel Arthur MD [address] [place] [address] PCP - General Family Medicine 11/09/12 Lead Net Software Developer Relationship Specialty Start Date End Date Juan Miguel Arthur MD [address] [place] [address] PCP - General Family Medicine 11/09/12 Lead Net Software Developer Relationship Specialty Start Date End Date Juan Miguel Arthur MD [address] [place] [address] PCP - General Family Medicine 11/09/12 Lead Net Software Developer Relationship Specialty Start Date End Date Juan Miguel Arthur MD [address] [place] [address] PCP - General Family Medicine 11/09/12 Lead Net Software Developer Relationship Specialty Start Date End Date Juan Miguel Arthur MD [address] [place] [address] PCP - General Family Medicine 11/09/12 Lead Net Software Developer Relationship Specialty Start Date End Date Juan Miguel Arthur MD [address] [place] [address] PCP - General Family Medicine 11/09/12 Lead Net Software Developer Relationship Specialty Start Date End Date Juan Miguel Arthur MD [address] [place] [address] PCP - General Family Medicine 11/09/12 Lead Net Software Developer Relationship Specialty Start Date End Date Juan Miguel Arthur MD [address] [place] [address] PCP - General Family Medicine 11/09/12 Lead Net Software Developer Relationship Specialty Start Date End Date Juan Miguel Arthur MD [address] [place] [address] PCP - General Family Medicine 11/09/12 Lead Net Software Developer Relationship Specialty Start Date End Date Juan Miguel Arthur MD [address] [place] [address] PCP - General Family Medicine 11/09/12 Lead Net Software Developer Relationship Specialty Start Date End Date Juan Miguel Arthur MD [address] [place] [address] PCP - General Family Medicine 11/09/12 Lead Net Software Developer Relationship Specialty Start Date End Date Juan Miguel Arthur MD [address] [place] [address] PCP - General Family Medicine 11/09/12 Lead Net Software Developer Relationship Specialty Start Date End Date Juan Miguel Arthur MD [address] [place] [address] PCP - General Family Medicine 11/09/12 Lead Net Software Developer Relationship Specialty Start Date End Date Juan Miguel Arthur MD [address] [place] [address] PCP - General Family Medicine 11/09/12 Lead Net Software Developer Relationship Specialty Start Date End Date Juan Miguel Arthur MD [address] [place] [address] PCP - General Family Medicine 11/09/12 Lead Net Software Developer Relationship Specialty Start Date End Date Juan Miguel Arthur MD [address] [facility], [place] [address] PCP - General Family [facility] 11/09/12 Lead Net Software Developer Relationship Specialty Start Date End Date Juan Miguel Arthur MD [address] [facility], [place] [address] PCP - General Family Medicine 11/09/12 Lead Net Software Developer Relationship Specialty Start Date End Date Juan Miguel Arthur MD [address] [facility], [place] [address] PCP - General [facility] 11/09/12 Lead Net Software Developer Relationship Specialty Start Date End Date Juan Miguel Arthur MD [address] [facility], [place] [address] PCP - [facility] 11/09/12 Lead Net Software Developer Relationship Specialty Start Date End Date Juan Miguel Arthur MD [address] [facility], [place] [address] PCP - [facility] 11/09/12 Lead Net Software Developer Relationship Specialty Start Date End Date Juan Miguel Arthur MD [address] [facility], [place] [address] PCP - General [facility] Medicine 11/09/12 (unrecognized sect ion and content) No Status Records FoundNo Status Records Found INFORMATION SOURCE (unrecogn ized section and content) DATE CREATED AUTHOR AUTHOR'S ORGANIZ ATION 02/28/[address] [facility] FOR RECORDS PERTAINING TO PATIENTS WHO ARE OR HAVE BEEN ENROLLED IN A CHEMICAL DEPENDENCY/SUBSTANCEABUSE PROGRAM, SOME INFORMATION MAY BE OMITTED. This clinical summary was aggregated from multiple sources. Caution should be exercised in using it in the provision of clinical care. This summary normalizes information from multiple sources, and as a consequence, information in this document may materially change the coding, format and clinical context of patient data. In addition, data may be omitted in some cases. CLINICAL DECISIONS SHOULD BE BASED ON THE PRIMARY CLINICAL RECORDS. [facility] [employer] [facility]. provides no warranty or guarantee of the accuracy or completeness of information in this document.
== END | disposition home or self-care (01) ==
LOC: LAB 14:20
PROVIDERS: PCP Family Medicine; Referring Provider Anesthesiology Pain Medicine; Visit Provider Anesthesiology Pain Medicine
DX: F11.20 Opioid dependence, uncomplicated (principal)
CPT/HCPCS: 80307

== ENCOUNTER 2023-06-22 14:07 | Inpatient (IN) | payer MEDICARE, MEDICAID, SELFPAY ==
[2023-06-22] VITALS (8 sets, daily range): BP systolic 97–120; BP diastolic 51–94; PULSE 76–102; RESP 14–18; TEMP 36.1–36.8; O2SAT 91–99; BMI 44.9; BMI 47.5
--- NOTE | 2023-06-22 14:20 | CT_ITS ---
We are attempting to reach an attending provider to discuss findings. An addendum with communication details will be sent when the communication is complete. EXAM: CT ABDOMEN AND PELVIS WITHOUT INTRAVENOUS CONTRAST CLINICAL INDICATION: lower abdominal pain TECHNIQUE: Helically acquired images were obtained of the abdomen and pelvis without intravenous contrast. This CT exam was performed using one or more of the following dose reduction techniques: automated exposure control, adjustment of the mA and/or kV according to patient size, and/or use of iterative reconstruction technique. COMPARISON: No relevant prior studies available. FINDINGS: LOWER THORAX: Aortic valve prosthesis is present. Normal heart size. ABDOMEN: LIVER: Normal. Homogeneous. GALLBLADDER AND BILE DUCTS: Normal-appearing gallbladder. PANCREAS: Normal. No focal cystic mass. SPLEEN: Normal. Normal size without focal cystic or solid mass. ADRENALS: Normal. No nodules. KIDNEYS AND URETERS: 4.4 cm low-density mass arising from the lower pole left kidney suggestive of a simple cyst. No specific follow-up indicated. STOMACH AND BOWEL: Distention of the stomach, duodenum and multiple small bowel loops noted with transition to nondistended small bowel within the left side of the midabdomen indicative of small bowel obstruction. There is focal edema of the mesentery at the point of transition raises the possibility of early ischemic change. PELVIS: APPENDIX: Appendix is visualized and normal in appearance. BLADDER: Urinary bladder is contracted. REPRODUCTIVE: Unremarkable as visualized. No mass. ABDOMEN and PELVIS: INTRAPERITONEAL SPACE: Normal. No ascites or other fluid collection. No free air. BONES/JOINTS: Prominent degenerative changes are noted within the spine. L4 laminectomy noted with interpedicular screw fixation of L4 on L5. Sternotomy wires are in place. Chronic compression deformities of the T10 and T11 vertebral bodies. SOFT TISSUES: Normal. No discrete abdominal or pelvic wall hernia. VASCULATURE: Normal. Abdominal aorta is non-dilated. LYMPH NODES: Normal. No enlarged lymph nodes. CT/Abdomen/Pelvis without Cont IMPRESSION: Small bowel obstruction with question of early ischemic change. Electronically Signed: Ronan Awan MD at 15:35 EDT ,
--- NOTE | 2023-06-22 14:21 | EX.ED.DYSGE1 ---
HPI History of Present Illness Chief Complaint: Abd Pain Informant: patient Narrative Narrative: Patient presents via EMS secondary to abdominal pain. He points to the area just below the umbilicus and describing his area of pain. He does report some nausea and constipation. Patient had a stroke in March of this year and has right-sided weakness. He states he has had similar pain in the past but seem to resolve and then recurred again last evening. [facility] Medical History Anxiety Asthma Atherosclerotic heart disease of [place] coronary artery without angina pectoris Atrial septal defect and mitral stenosis Bicuspid aortic valve Bipolar 1 disorder Carpal tunnel syndrome, bilateral Chronic pain COPD (chronic obstructive pulmonary disease) CPAP (continuous positive airway pressure) dependence Degenerative disc disease Diabetic neuropathy Essential (primary) hypertension GERD (gastroesophageal reflux disease) Hearing loss, left HLD (hyperlipidemia) Leaky heart valve LVH (left ventricular hypertrophy) Morbid obesity MANISH (obstructive sleep apnea) Pancreatitis Smoker Type II diabetes mellitus Home Medications diltiazem HCl 180 mg capsule,24 hr,extended release 180 mg PO DAILY 11/20/13 [History Last Taken Unknown] metformin 500 mg tablet 500 mg PO 4X/DAY 11/20/13 [History Last Taken Unknown] atorvastatin 10 mg tablet 10 mg PO QHS 11/03/16 [History Last Taken Unknown] dulaglutide 0.75 mg/0.5 mL subcutaneous pen injector (Trulicity) 3 mg SQ QWEEK DIABETES 11/03/16 [History Last Taken 10/07/22] glimepiride 2 mg tablet 4 mg PO DAILY 11/03/16 [History Last Taken Unknown] budesonide-formoterol HFA 80 mcg-4.5 mcg/actuation aerosol inhaler 2 puff inhalation BID 10/30/20 [History Last Taken Unknown] oxycodone myristate 18 mg capsule sprinkle extended release 12hr(DON'T CRUSH) (Xtampza ER) 18 mg PO BID 10/30/20 [History Last Taken Unknown] pantoprazole 40 mg tablet,delayed release 40 mg PO DAILY 10/30/20 [History Last Taken Unknown] acetaminophen 500 mg tablet 1,000 mg PO TID PRN Pain 10/18/21 [History Last Taken Unknown] albuterol sulfate 90 mcg/actuation aerosol inhaler (Ventolin HFA) 1 - 2 puff inhalation Q4H PRN PRN Wheezing #8.5 grams 10/18/21 [Rx Last Taken Unknown] carvedilol 3.125 mg tablet 3.125 mg PO BID BP 10/09/22 [History Last Taken Unknown] diclofenac potassium 25 mg capsule 25 mg PO BID PAIN 10/09/22 [History Last Taken Unknown] ergocalciferol (vitamin D2) 1,250 mcg (50,000 unit) capsule (Vitamin D2) 50,000 unit PO .MONDAY REPLACEMET 10/09/22 [History Last Taken Unknown] furosemide 40 mg tablet 40 mg PO DAILY #30 tabs 10/11/22 [Rx Last Taken Unknown] levofloxacin 750 mg tablet 750 mg PO DAILY #7 tabs 10/11/22 [Rx Last Taken Unknown] losartan 50 mg tablet 50 mg PO DAILY #30 tabs 10/11/22 [Rx Last Taken Unknown] potassium chloride 20 mEq tablet,extended release(part/cryst) (Klor-Con M) 20 meq PO DAILY #30 tabs 10/11/22 [Rx Last Taken Unknown] prednisone 20 mg tablet 40 mg (2 x 20 mg) PO BREAKFAST #6 tabs 10/11/22 [Rx Last Taken Unknown] insulin aspart U-100 100 unit/mL (3 mL) subcutaneous pen (Novolog FlexPen U-100 Insulin aspart) 2 unit subcut TID 10/14/22 [History Last Taken Unknown] insulin glargine 100 unit/mL (3 mL) subcutaneous pen 20 unit subcut HS 10/14/22 [History Last Taken Unknown] pregabalin 100 mg capsule (Lyrica) 100 mg PO .COMPLEX NEUROPATHY 10/14/22 [History Last Taken Unknown] Allergy/AdvReac Type Severity Reaction Status Date / Time Penicillins Allergy Hives Verified 06/22/23 14:08 fluticasone [From Flonase] AdvReac Severe Nose Bleeds Verified 06/22/23 14:08 lisinopril AdvReac Intermediate Upset Verified 06/22/23 14:08 Stomach NASAL SPRAY AdvReac Intermediate Chest Uncoded 10/09/22 14:22 tightness Family History Father Diabetes Dementia Mother CAD (coronary artery disease) CABG X4 Sister Diabetes Brother Ischemic heart disease Brother Myocardial infarction Surgical History History of back surgery Social History household members: spouse housing: house Smoking Status: Current every day smoker tobacco type: cigarettes Tobacco: How many years used: 45 alcohol intake: current alcohol intake frequency: holidays/special occasions only substance use type: does not use ROS ROS ED Constitutional Constitutional ED: Reports chills; Denies fever(s) Eyes Eyes: Denies change in vision or discharge from eye(s) ENT ENT ED: Denies discharge from eye(s), rhinorrhea or sore throat Cardiovascular Cardiovascular: Denies chest pain or palpitations Respiratory/Chest Respiratory/Chest: Denies cough or dyspnea Gastrointestinal Gastrointestinal: Reports abdominal pain, constipation and nausea; Denies diarrhea or vomiting Genitourinary Genitourinary ED: Denies dysuria Musculoskeletal Musculoskeletal: Denies back pain or extremity pain Integumentary Denies Abrasions or rash Neurologic Neurologic: Denies headache(s) or weakness Allergic/Immunologic Allergic/Immunologic ED: Denies lip swelling or urticaria EXAM Physical Exam Const Vital Signs: 06/22/23 14:08 Temperature 97.5 F L Temperature Source Temporal Pulse Rate 102 H Respiratory Rate 18 Blood Pressure 111/94 H Blood Pressure Mean 99 Pulse Ox 92 Oxygen Delivery Method Room Air Positive well nourished and well developed General Appearance ED: well developed HEENT Reports moist mucous membranes Eyes EOMs intact bilaterally Chest Wall inspection of chest normal and palpation of chest normal Resp normal respiratory effort and clear to auscultation bilaterally Cardio regular rate and regular rhythm GI GI Narrative: Abdomen soft, obese, mild lower abdominal tenderness. No guarding or rebound. Hypoactive bowel sounds noted. Extremity normal to inspection Neuro Neuro Narrative: Chronic right-sided weakness secondary to prior stroke. Psych mental status grossly normal MDM MDM MDM Narrative Medical decision making narrative: IV line established. Labwork obtained to evaluate for leukocytosis, anemia, and electrolyte derangement. Urinalysis obtained to evaluate for infection/hematuria. CT scan of the abdomen pelvis obtained to evaluate for potential bowel obstruction, appendicitis, urinary retention. History & Record Review Discussion w/independent historian: Patient and Family Lab Data Attestation: I reviewed the patient's lab results. Labs: Laboratory Results - last 24 hr 06/22/23 06/22/23 14:42 14:58 WBC 12.8 H RBC 5.50 Hgb 16.0 Hct 47.8 MCV 86.9 MCH 29.1 MCHC 33.5 RDW Std Deviation 45.3 H RDW Coeff of David 14.2 Plt Count 352 MPV 10.9 Immature Gran % (Auto) 0.400 Neut % (Auto) 77.0 H Lymph % (Auto) 12.5 L [place] % (Auto) 9.6 Eos % (Auto) 0.1 Baso % (Auto) 0.4 Absolute Neuts (auto) 9.9 H Absolute Lymphs (auto) 1.61 Nucleated RBC % 0 Sodium 136 Potassium 3.6 Chloride 97 L Carbon Dioxide 28.0 Anion Gap 11 BUN 30 H Creatinine 1.25 Estim Creat Clear Calc 67.87 Est GFR (MDRD) Af Amer 75 Est GFR (MDRD) Non-Af 62 BUN/Creatinine Ratio 24.0 H Glucose 305 H Calcium 9.5 Total Bilirubin 0.50 Direct Bilirubin 0.20 AST 16 ALT 14 L Alkaline Phosphatase 129 H Total Protein 7.4 Albumin 2.9 L Globulin 4.5 H Lipase 11 L Urine Color Yellow Urine Clarity Clear Urine pH 5.0 Ur Specific [place] 1.025 Urine Protein 30 H Urine Glucose (UA) Normal Urine Ketones 5 H Urine Occult Blood Negative Urine Nitrite Negative Urine Bilirubin 3 H Urine Urobilinogen 1 H Ur Leukocyte Esterase Negative Urine RBC 0-5 SEEN Urine WBC 0-5 SEEN Ur Squamous Epith Cells 0-5 SEEN Urine Bacteria 1+ Hyaline Casts 0-5 SEEN Urine Mucus 0 SEEN Radiography Diagnostic Testing: Clinical Impression(s) from Imaging Studies Abdomen/Pelvis CT 06/22/23 14:20 IMPRESSION: Small bowel obstruction with question of early ischemic change. Electronically Signed: Ronan Awan MD at 15:35 EDT , ADDENDUM: 06/22/23 2493 IMPRESSION: Small bowel obstruction with question of early ischemic change. N.B. : The above Results were Read Back by Ronan Awan MD to Carmen Matthews MD, and understanding confirmed on 06/22/2023 15:37:25 (ET). Electronically Signed: Ronan Awan MD at 15:35 EDT , Treatment and Re-Evaluation :: CBC was a white count of 12.8 with 77% neutrophils. Hemoglobin is 16. Chemistry studies reveal a BUN of 30 and creatinine of 1.25. Glucose is 305. LFTs significant for an alk phos of 129. Urinalysis reveals 1+ bacteria with no other sign of infection. CT scan of the abdomen and pelvis reveals small bowel obstruction with question early ischemic change. Test results are discussed with the patient as well as daughter who is now at bedside. She states the patient has had recurrent problems with bowel obstruction since his stroke in March. He has been seen at other facilities but not here previously. He has never required an abdominal surgery. I paged Dr. Stevenson who has responded to the emergency room to evaluate the patient. He asked that an NG tube be placed. The patient is currently on Eliquis and aspirin. No plans for immediate surgery at this time. He did ask that medicine admit the patient and we will have cardiology see him as well given his prior valve replacement. Discharge Plan Triage Chief Complaint: Abd Pain ED Provider: Carmen Matthews Dx/Rx/DC Orders Clinical Impression: Small bowel obstruction Prescriptions: No Action insulin glargine 100 unit/mL (3 mL) insulin pen 20 unit subcut HS pregabalin [Lyrica] 100 mg capsule 100 mg PO .COMPLEX Rx Instructions: Two in AM; one in afternoon; one in PM100 mg orally Two in AM; one in afternoon; one in PM metformin 500 MG tablet 500 mg PO 4X/DAY Patient Comments: DIABETES diltiazem HCl 180 MG capsule,extended release 24 hr 180 mg PO DAILY Patient Comments: HEART atorvastatin 10 MG tablet 10 mg PO QHS glimepiride 2 MG tablet 4 mg PO DAILY Trulicity 0.75 MG/0.5 ML pen injector 3 mg SQ QWEEK budesonide-formoterol 80-4.5 mcg/actuation Hfa Aerosol Inhaler 2 puff INHALATION BID Xtampza ER 18 mg Cap,Sprinkl,Er12hr(Dont Crush) 18 mg PO BID pantoprazole 40 mg Tablet,Delayed Release (Dr/Ec) 40 mg PO DAILY insulin aspart U-100 [Novolog FlexPen U-100 Insulin] 100 unit/mL (3 mL) insulin pen 2 unit SUBCUT TID Rx Instructions: 2 units per every 50 after 200 BG acetaminophen 500 MG tablet 1,000 mg PO TID PRN (Reason: Pain) albuterol sulfate [Ventolin HFA] 90 mcg/actuation HFA aerosol inhaler 1 - 2 puff inhalation Q4H PRN PRN (Reason: Wheezing) Qty: 8.5 0RF ergocalciferol (vitamin D2) [Vitamin D2] 1,250 mcg (50,000 unit) capsule 50,000 unit PO .MONDAY diclofenac potassium 25 mg capsule 25 mg PO BID Patient Comments: TAKE 1 CAPSULE BY MOUTH TWICE DAILY carvedilol 3.125 mg tablet 3.125 mg PO BID prednisone 20 mg Tablet 40 mg PO BREAKFAST Qty: 6 0RF furosemide 40 mg tablet 40 mg PO DAILY Qty: 30 2RF potassium chloride [Klor-Con M20] 20 mEq tablet,ER particles/crystals 20 meq PO DAILY Qty: 30 2RF losartan 50 mg tablet 50 mg PO DAILY Qty: 30 2RF levofloxacin 750 mg tablet 750 mg PO DAILY Qty: 7 0RF Primary Care Provider: Juan Miguel Russell Referrals: Juan Miguel Russell MD [Primary Care Provider] - Disposition Disposition: Acute Care Hospital [facility]
[2023-06-22 14:59] LABS: Absolute Lymphocyte Count 1.61 X10^3/uL (0.83-4.51); Absolute Neutrophil Count 9.9 X10^3/uL (2.0-7.7); Basophil# 0.05 X10^3/uL; Basophil% 0.4 % (0-1); Eosinophil# 0.01 X10^3/uL; Eosinophils% 0.1 % (0-5); Hematocrit 47.8 % (40-54); Lymphocyte # 1.61 X10^3/ul (0.83-4.51); Lymphocyte % 12.5 % (19-41); Mean Corp Hgb Conc 33.5 g/dL (32-36); Mean Corpuscular Hgb 29.1 pg (27.0-32.0); Mean Corpuscular Volume 86.9 fL (80-94); Mean Platelet Vol. 10.9 fl (6.2-12.0); Monocyte# 1.23 X10^3/uL; Monocyte% 9.6 % (0-10); NRBC Flagged by Analyzer 0 % (0-5); Neutrophil # 9.89 X10^3/uL (2.7-7.7); Platelet Count 352 K/mm3 (150-450); RBC Distribution Width CV 14.2 % (11.6-14.6); RBC Distribution Width SD 45.3 fl (35.1-43.9); White Blood Count 12.8 K/mm3 (4.4-11.0)
[2023-06-22 15:07] LABS: Mucous, Urine 0 SEEN /hpf (<or=2+)
[2023-06-22 15:09] LABS: Color, Urine Yellow (Yellow); Glucose, Dipstick Normal (Normal); Ketone-Dipstick 5 mg/dl (Negative); Leukocyte Esterase-Dipstick Negative /ul (Negative); Nitrite-Dipstick Negative (Negative); Occult Blood-Urine Negative /ul (Negative); Protein-Dipstick 30 mg/dl (Negative); Specific Gravity, Urine 1.025 (1.002-1.030); Urine Clarity Clear (Clear); Urine Urobilinogen 1 mg/dl (Normal)
[2023-06-22 15:10] LABS: Urine Bilirubin Dipstick 3 mg/dL (Negative)
[2023-06-22 15:17] LABS: Bacteria 1+ /hpf (None Seen); Red Blood Cells-Urine 0-5 SEEN /hpf (0-5); Squamous Epithelial Cells - UA 0-5 SEEN /hpf (0-5)
[2023-06-22 15:18] LABS: Hyaline Cast 0-5 SEEN /lpf (0-5); White Blood Cells 0-5 SEEN /hpf (0-5)
[2023-06-22 15:29] LABS: AST(SGOT) 16 U/L (15-37); Alanine Aminotransfer ALT/SGPT 14 U/L (16-61); Albumin, Serum 2.9 g/dL (3.2-5.0); Alkaline Phosphatase 129 U/L (45-117); Anion Gap 11 (5-15); BUN 30 mg/dL (7-18); Calcium,Total 9.5 mg/dL (8.5-10.1); Chloride 97 mmol/L (98-107); Creatinine, Serum 1.25 mg/dL (0.70-1.30); EST Glomerular Filtration Rate 62 mL/min (>60); Est Glom Filt Rate - Afr Amer 75 mL/min (>60); Estimated Creatinine Clearance 67.87 ml/min; Globulin 4.5 g/dL (2.2-4.2); Glucose 305 mg/dL (74-106); Lipase 11 U/L (13-75); Potassium 3.6 mmol/L (3.5-5.1); Protein, Total 7.4 g/dL (6.4-8.2); Sodium Level 136 mmol/L (136-145)
--- NOTE | 2023-06-22 16:13 | ED.RN ---
PT GIVES PERMISSION TO TALKWITH SAM RICHMOND FOR UPDATES AND PLAN OF CARE. [phone]
[2023-06-22] MEDS: Oxymetazoline 0.05% 1 SPRAY SPRAY.BTL 2 SPRAY NASAL (16:25)
--- NOTE | 2023-06-22 16:25 | EX.PCM.CON.S ---
Assessment & Plan Assessment/Plan (1) Small bowel obstruction: PLAN: The patient presented with abdominal pain and nausea and vomiting a CT scan revealed a bowel obstruction. The patient has decompressed distal small bowel and distended proximal small bowel with stomach dilation. There is concern for ischemia due to the presence of edema in the mesentery on CT scan. On physical exam the patient is distended with some tenderness in the supraumbilical area. He does not have any guarding or rebound tenderness. White count is elevated with some left shift. The patient has an odd presentation. He had recent cardiac surgery and CVA. He is diabetic as well. The patient has had 3 bowel obstruction since surgery in March but has not had any abdominal surgeries. Patient is also on Eliquis and aspirin. He reports that his last 3 bowel obstructions have resolved spontaneously. I would like to have the patient admitted to medicine for medical management and have an NG placed. I will reorder an x-ray in the morning. Possibly consult cardiology as well as the patient has a significant and recent cardiac surgery history. If the Eliquis and aspirin are able to be held that would be helpful. If labs worsen or physical exam worsens tomorrow we will take him for surgery and explore. At this time the patient does not have any peritoneal signs or fever and would be high risk due to blood thinners and recent cardiac history and recent stroke history. If the patient worsens and there is concern for bowel I will take him to surgery on his blood thinners. Raj Stevenson MD Pager: [facility] [address] [place] [address], [address] [place] [address] Office: HPI Consult Data Date of Consult: 06/22/23 HPI Narrative HPI Narrative: KIEL CARRANZA, is a 62 M who presents with nausea and vomiting. The patient has a complicated medical history. He also is a poor historian. Patient says that he had bicuspid valve replacement in March [facility]. He says he had a CVA during the surgery. He says that he developed a bowel obstruction after the surgery. He has had 2 other bowel obstructions treated at [facility] and at [facility]. He says they were treated nonoperatively. The patient reports no previous abdominal surgeries. He says his mid upper abdomen is painful. He says he had a bowel movement yesterday and feels like he has to have another 1. He denies acute pain and says that it comes and goes. [facility] Medical History Anxiety Asthma Atherosclerotic heart disease of [place] coronary artery without angina pectoris Atrial septal defect and mitral stenosis Bicuspid aortic valve Bipolar 1 disorder Carpal tunnel syndrome, bilateral Chronic pain COPD (chronic obstructive pulmonary disease) CPAP (continuous positive airway pressure) dependence Degenerative disc disease Diabetic neuropathy Essential (primary) hypertension GERD (gastroesophageal reflux disease) Hearing loss, left HLD (hyperlipidemia) Leaky heart valve LVH (left ventricular hypertrophy) Morbid obesity MANISH (obstructive sleep apnea) Pancreatitis Smoker Type II diabetes mellitus Home Medications diltiazem HCl 180 mg capsule,24 hr,extended release 180 mg PO DAILY 11/20/13 [History Last Taken Unknown] metformin 500 mg tablet 500 mg PO 4X/DAY 11/20/13 [History Last Taken Unknown] atorvastatin 10 mg tablet 10 mg PO QHS 11/03/16 [History Last Taken Unknown] dulaglutide 0.75 mg/0.5 mL subcutaneous pen injector (Trulicity) 3 mg SQ QWEEK DIABETES 11/03/16 [History Last Taken 10/07/22] glimepiride 2 mg tablet 4 mg PO DAILY 11/03/16 [History Last Taken Unknown] budesonide-formoterol HFA 80 mcg-4.5 mcg/actuation aerosol inhaler 2 puff inhalation BID 10/30/20 [History Last Taken Unknown] oxycodone myristate 18 mg capsule sprinkle extended release 12hr(DON'T CRUSH) (Xtampza ER) 18 mg PO BID 10/30/20 [History Last Taken Unknown] pantoprazole 40 mg tablet,delayed release 40 mg PO DAILY 10/30/20 [History Last Taken Unknown] acetaminophen 500 mg tablet 1,000 mg PO TID PRN Pain 10/18/21 [History Last Taken Unknown] albuterol sulfate 90 mcg/actuation aerosol inhaler (Ventolin HFA) 1 - 2 puff inhalation Q4H PRN PRN Wheezing #8.5 grams 10/18/21 [Rx Last Taken Unknown] carvedilol 3.125 mg tablet 3.125 mg PO BID BP 10/09/22 [History Last Taken Unknown] diclofenac potassium 25 mg capsule 25 mg PO BID PAIN 10/09/22 [History Last Taken Unknown] ergocalciferol (vitamin D2) 1,250 mcg (50,000 unit) capsule (Vitamin D2) 50,000 unit PO .MONDAY REPLACEMET 10/09/22 [History Last Taken Unknown] furosemide 40 mg tablet 40 mg PO DAILY #30 tabs 10/11/22 [Rx Last Taken Unknown] levofloxacin 750 mg tablet 750 mg PO DAILY #7 tabs 10/11/22 [Rx Last Taken Unknown] losartan 50 mg tablet 50 mg PO DAILY #30 tabs 10/11/22 [Rx Last Taken Unknown] potassium chloride 20 mEq tablet,extended release(part/cryst) (Klor-Con M) 20 meq PO DAILY #30 tabs 10/11/22 [Rx Last Taken Unknown] prednisone 20 mg tablet 40 mg (2 x 20 mg) PO BREAKFAST #6 tabs 10/11/22 [Rx Last Taken Unknown] insulin aspart U-100 100 unit/mL (3 mL) subcutaneous pen (Novolog FlexPen U-100 Insulin aspart) 2 unit subcut TID 10/14/22 [History Last Taken Unknown] insulin glargine 100 unit/mL (3 mL) subcutaneous pen 20 unit subcut HS 10/14/22 [History Last Taken Unknown] pregabalin 100 mg capsule (Lyrica) 100 mg PO .COMPLEX NEUROPATHY 10/14/22 [History Last Taken Unknown] Allergy/AdvReac Type Severity Reaction Status Date / Time Penicillins Allergy Hives Verified 06/22/23 14:08 fluticasone [From Flonase] AdvReac Severe Nose Bleeds Verified 06/22/23 14:08 lisinopril AdvReac Intermediate Upset Verified 06/22/23 14:08 Stomach NASAL SPRAY AdvReac Intermediate Chest Uncoded 10/09/22 14:22 tightness Family History Father Diabetes Dementia Mother CAD (coronary artery disease) CABG X4 Sister Diabetes Brother Ischemic heart disease Brother Myocardial infarction Surgical History History of back surgery Social History household members: spouse housing: house Smoking Status: Current every day smoker tobacco type: cigarettes Tobacco: How many years used: 45 alcohol intake: current alcohol intake frequency: holidays/special occasions only substance use type: does not use ROS Constitutional Constitutional: Denies anorexia, chills or fatigue Eyes Eyes: Denies blurry vision ENT HEENT: Denies abnormal hearing Cardiovascular Cardiovascular: Denies chest pain Respiratory/Chest Respiratory/Chest: Denies cough or dyspnea Gastrointestinal Gastrointestinal: Reports abdominal pain, nausea and vomiting Genitourinary Genitourinary: Denies change in urinary stream Musculoskeletal Musculoskeletal: Denies abnormal gait Integumentary Integumentary: Denies jaundice Neurologic Neurologic: Denies dizziness Psychiatric Psychiatric: Denies anxiety Endocrine Endocrinology: Denies heat intolerance Hematologic/Lymphatic Hematologic/Lymphatic: Denies easy bleeding Physical Exam Const alert and oriented x3 HEENT normocephalic Eyes PERRL Resp normal respiratory effort Cardio Rate: regular rate Rhythm: regular rhythm GI soft to palpation Inspection: abdominal distention Palpation: tender periumbilical Lab / Micro Data 06/22/23 14:42 06/22/23 14:42 Labs: Laboratory Results - last 24 hr 06/22/23 14:42: WBC 12.8 H, RBC 5.50, Hgb 16.0, Hct 47.8, MCV 86.9, MCH 29.1, MCHC 33.5, RDW Std Deviation 45.3 H, RDW Coeff of David 14.2, Plt Count 352, MPV 10.9, Immature Gran % (Auto) 0.400, Neut % (Auto) 77.0 H, Lymph % (Auto) 12.5 L, [place] % (Auto) 9.6, Eos % (Auto) 0.1, Baso % (Auto) 0.4, Absolute Neuts (auto) 9.9 H, Absolute Lymphs (auto) 1.61, Nucleated RBC % 0, Sodium 136, Potassium 3.6, Chloride 97 L, Carbon Dioxide 28.0, Anion Gap 11, BUN 30 H, Creatinine 1.25, Estim Creat Clear Calc 67.87, Est GFR (MDRD) Af Amer 75, Est GFR (MDRD) Non-Af 62, BUN/Creatinine Ratio 24.0 H, Glucose 305 H, Calcium 9.5, Total Bilirubin 0.50, Direct Bilirubin 0.20, AST 16, ALT 14 L, Alkaline Phosphatase 129 H, Total Protein 7.4, Albumin 2.9 L, Globulin 4.5 H, Lipase 11 L 06/22/23 14:58: Urine Color Yellow, Urine Clarity Clear, Urine pH 5.0, Ur Specific [place] 1.025, Urine Protein 30 H, Urine Glucose (UA) Normal, Urine Ketones 5 H, Urine Occult Blood Negative, Urine Nitrite Negative, Urine Bilirubin 3 H, Urine Urobilinogen 1 H, Ur Leukocyte Esterase Negative, Urine RBC 0-5 SEEN, Urine WBC 0-5 SEEN, Ur Squamous Epith Cells 0-5 SEEN, Urine Bacteria 1+, Hyaline Casts 0-5 SEEN, Urine Mucus 0 SEEN Imaging Radiology Impression Abdomen/Pelvis CT 06/22/23 14:20 IMPRESSION: Small bowel obstruction with question of early ischemic change. Electronically Signed: oRnan Awan MD at 15:35 EDT Reading Location ID and State: [facility] / [place] Tel , Service support , ADDENDUM: 06/22/23 1544 IMPRESSION: Small bowel obstruction with question of early ischemic change. N.B. : The above Results were Read Back by Ronan Awan MD to Carmen Matthews MD, and understanding confirmed on 06/22/2023 15:37:25 (ET). Electronically Signed: Ronan Awan MD at 15:35 EDT ,
--- NOTE | 2023-06-22 16:28 | HP.PCM.HOS_ITS ---
HPI - General General Date of Admission: 06/22/23 Date of Service: 06/22/23 Chief Complaint: Abdominal pain HPI Narrative KIEL CARRANZA, is a 62 M who presented to [facility] ED on 06/22/20[address] with worsening abdominal pain. CT abdomen pelvis revealed a small bowel obstruction with questionable early ischemic changes. I saw patient at the bedside in the ED. Patient's daughter was previously at the bedside but was not there when I saw the patient. Patient was sitting up in bed, appeared fatigued but was making appropriate eye contact and answering questions appropriately. Patient has a complex medical history; further information was obtained through [facility] records. Most recently the patient underwent an open ascending aortic aneurysm repair with aortic valve replacement at the [facility] in March. Unfortunately that procedure was complicated by a left MCA stroke. Patient continues to have residual right-sided deficits including significant weakness in his right arm, moderate weakness in his right leg and some difficulty with speech. He is able to communicate mostly normally but has some slowing of his speech. Patient apparently has a history of multiple partial small bowel obstructions since that hospitalization in March, though I was unable to find these records. He has never required a procedure for these obstructions. Has had no previous intra-abdominal surgeries so it is unclear as to what may be the nidus for these obstructions. He did need to have an NG tube placed for 1 of those surgeries per daughter's report to the ED physician. When I saw him, patient noted that ED staff had tried to place an NG tube for him about 15 to 20 minutes prior but they were unable to get the NG tube down. The patient apparently has had some sort of nasal surgery done in the past which makes NG tube placement difficult. States he did have a small bowel movement earlier, and patient's ED nurse noted that he had a small liquid bowel movement with very little substance. Patient did not appear to be in any acute pain or discomfort when I saw him. I was able to press on his belly on exam and abdomen was fairly soft and nontender to palpation, with no guarding or rebound tende rness noted. Patient denied any fevers or chills. Denied any chest pain or shortness of breath. Vitals in ED notable for borderline sinus tachycardia, otherwise normotensive, afebrile and satting well on room air. WBC count 12.8, hemoglobin 16 (at baseline), platelets 352. BMP with creatinine 1.25 (mildly elevated from baseline), glucose 305, otherwise benign. LFTs fairly benign. UA unremarkable. CT abdomen pelvis as noted above. Will admit for further management. [facility] Medical History Anxiety Asthma Atherosclerotic heart disease of [place] coronary artery without angina pectoris Atrial septal defect and mitral stenosis Bicuspid aortic valve Bipolar 1 disorder Carpal tunnel syndrome, bilateral Chronic pain COPD (chronic obstructive pulmonary disease) CPAP (continuous positive airway pressure) dependence Degenerative disc disease Diabetic neuropathy Essential (primary) hypertension GERD (gastroesophageal reflux disease) Hearing loss, left HLD (hyperlipidemia) Leaky heart valve LVH (left ventricular hypertrophy) Morbid obesity MANISH (obstructive sleep apnea) Pancreatitis Smoker Type II diabetes mellitus Home Medications atorvastatin 10 mg tablet 10 mg PO QHS 11/03/16 [History Last Taken 06/21/23] budesonide-formoterol HFA 80 mcg-4.5 mcg/actuation aerosol inhaler 2 puff inhalation BID 10/30/20 [History Last Taken 06/22/23] pantoprazole 40 mg tablet,delayed release 40 mg PO DAILY 10/30/20 [History Last Taken 06/22/23] acetaminophen 500 mg tablet 1,000 mg PO TID PRN Pain 10/18/21 [History Last Taken Unknown] albuterol sulfate 90 mcg/actuation aerosol inhaler (Ventolin HFA) 1 - 2 puff inhalation Q4H PRN PRN Wheezing #8.5 grams 10/18/21 [Rx Last Taken Unknown] insulin aspart U-100 100 unit/mL (3 mL) subcutaneous pen (Novolog FlexPen U-100 Insulin aspart) 2 unit subcut TID 10/14/22 [History Last Taken 06/22/23] insulin glargine 100 unit/mL (3 mL) subcutaneous pen 12 unit subcut .QAM 10/14/22 [History Last Taken 06/22/23] pregabalin 100 mg capsule (Lyrica) 100 mg PO DAILY NEUROPATHY 10/14/22 [History Last Taken 06/22/23] amlodipine 5 mg tablet 5 mg PO DAILY 06/22/23 [History Last Taken 06/22/23] apixaban 5 mg tablet (Eliquis) 5 mg PO BID 06/22/23 [History Last Taken 06/22/23] aspirin 81 mg tablet,delayed release (Adult Aspirin Regimen) 81 mg PO DAILY 06/22/23 [History Last Taken 06/22/23] bumetanide 1 mg tablet 2 mg PO BID 06/22/23 [History Last Taken 06/22/23] docusate sodium 100 mg capsule (Col-Rite) 100 mg PO DAILY PRN constipation 06/22/23 [History Last Taken Unknown] metoprolol tartrate 25 mg tablet 37.5 mg PO Q12H 06/22/23 [History Last Taken 06/22/23] cmlrybfh-ga-zjpej 300 mcg-K 60 mcg-lycop 600 mcg-lutein 300 mcg tablet (Centrum Silver Men) 1 tab PO DAILY 06/22/23 [History Last Taken 06/22/23] ondansetron HCl 4 mg tablet 4 mg PO Q8H PRN PRN nausea and vomiting 06/22/23 [History Last Taken 06/22/23] pregabalin 200 mg capsule 200 mg PO DAILY 06/22/23 [History Last Taken 06/22/23] tramadol 50 mg tablet 50 mg PO Q6H PRN 06/22/23 [History Last Taken 06/22/23] trazodone 50 mg tablet 50 mg PO QHS 06/22/23 [History Last Taken 06/21/23] Allergy/AdvReac Type Severity Reaction Status Date / Time Penicillins Allergy Hives Verified 06/22/23 14:08 fluticasone [From Flonase] AdvReac Severe Nose Bleeds Verified 06/22/23 14:08 lisinopril AdvReac Intermediate Upset Verified 06/22/23 14:08 Stomach NASAL SPRAY AdvReac Intermediate Chest Uncoded 10/09/22 14:22 tightness Family History Father Diabetes Dementia Mother CAD (coronary artery disease) CABG X4 Sister Diabetes Brother Ischemic heart disease Brother Myocardial infarction Surgical History History of back surgery Social History (Updated 06/22/23 @ 20:25 by Veronique Diez) household members: spouse housing: house Smoking Status: Current every day smoker tobacco type: cigarettes Tobacco: How many years used: 45 alcohol intake: current alcohol intake frequency: holidays/special occasions only substance use type: does not use ROS Constitutional Constitutional: Denies chills, fatigue, fever(s) or weakness Cardiovascular Cardiovascular: Denies chest pain Respiratory/Chest Respiratory/Chest: Denies shortness of breath at rest Gastrointestinal Gastrointestinal: Reports abdominal pain, diarrhea and nausea; Denies constipation or vomiting Genitourinary Genitourinary: Denies dysuria Musculoskeletal Musculoskeletal: Denies back pain Neurologic Neurologic: Denies dizziness, focal weakness or headache(s) Vital Signs Vital Signs Vital Signs: 06/22/23 14:08 Temperature 97.5 F L Temperature Source Temporal Pulse Rate 102 H Respiratory Rate 18 Blood Pressure 111/94 H Blood Pressure Mean 99 Pulse Ox 92 Oxygen Delivery Method Room Air Weight Weight: 111.4 kg Body Mass Index (BMI) 44.9 Physical Exam Const alert and no apparent distress Constitutional Narrative: Middle-age male, appears older than stated age, morbidly obese, sitting up in bed fairly comfortably, answering questions appropriately with mild speech deficits due to previous stroke, otherwise in no acute distress. General Appearance: cooperative HEENT normocephalic, head/scalp atraumatic, hearing grossly normal bilaterally and nasal mucous membranes and turbinates normal Eyes PERRL, EOMs intact bilaterally and conjunctivae normal Neck full ROM Chest inspection of chest normal Resp normal respiratory effort, normal air movement, no use of accessory muscles and clear to auscultation bilaterally Cardio regular rate, regular rhythm, no murmurs and peripheral pulses 2+ throughout GI GI Narrative: Mild distention noted. Otherwise soft and nontender to palpation. Back/Spine normal ROM Extremity normal to inspection and no pedal edema Skin no rashes or lesions noted Neuro Neuro Narrative: Significant right arm weakness, moderate right leg weakness, mild difficulty with speech (all known) due to previous stroke. Psych mental status grossly normal Results Lab / Micro Data 06/22/23 14:42 06/22/23 14:42 Labs: Laboratory Results - last 24 hr 06/22/23 14:42: WBC 12.8 H, RBC 5.50, Hgb 16.0, Hct 47.8, MCV 86.9, MCH 29.1, MCHC 33.5, RDW Std Deviation 45.3 H, RDW Coeff of David 14.2, Plt Count 352, MPV 10.9, Immature Gran % (Auto) 0.400, Neut % (Auto) 77.0 H, Lymph % (Auto) 12.5 L, [place] % (Auto) 9.6, Eos % (Auto) 0.1, Baso % (Auto) 0.4, Absolute Neuts (auto) 9.9 H, Absolute Lymphs (auto) 1.61, Nucleated RBC % 0, Sodium 136, Potassium 3.6, Chloride 97 L, Carbon Dioxide 28.0, Anion Gap 11, BUN 30 H, Creatinine 1.25, Estim Creat Clear Calc 67.87, Est GFR (MDRD) Af Amer 75, Est GFR (MDRD) Non-Af 62, BUN/Creatinine Ratio 24.0 H, Glucose 305 H, Calcium 9.5, Total Bilirubin 0.50, Direct Bilirubin 0.20, AST 16, ALT 14 L, Alkaline Phosphatase 129 H, Total Protein 7.4, Albumin 2.9 L, Globulin 4.5 H, Lipase 11 L 06/22/23 14:58: Urine Color Yellow, Urine Clarity Clear, Urine pH 5.0, Ur Specif ic Parker 1.025, Urine Protein 30 H, Urine Glucose (UA) Normal, Urine Ketones 5 H, Urine Occult Blood Negative, Urine Nitrite Negative, Urine Bilirubin 3 H, Urine Urobilinogen 1 H, Ur Leukocyte Esterase Negative, Urine RBC 0-5 SEEN, Urine WBC 0-5 SEEN, Ur Squamous Epith Cells 0-5 SEEN, Urine Bacteria 1+, Hyaline Casts 0-5 SEEN, Urine Mucus 0 SEEN Imaging Radiology Impression Abdomen/Pelvis CT 06/22/23 14:20 IMPRESSION: Small bowel obstruction with question of early ischemic change. Electronically Signed: Ronan Awan MD at 15:35 EDT , ADDENDUM: 06/22/23 154 IMPRESSION: Small bowel obstruction with question of early ischemic change. N.B. : The above Results were Read Back by Ronan Awan MD to Carmen Matthews MD, and understanding confirmed on 06/22/2023 15:37:25 (ET). Electronically Signed: Ronan Awan MD at 15:35 EDT , Assessment & Plan Assessment/Plan (1) Small bowel obstruction: (2) Morbid obesity: PLAN: Plan Patient is a 62-year-old male who presented [facility] ED on 06/22/2023 with abdominal pain. 1. Recurrent small bowel obstruction ? Admit under inpatient status to PCU. General surgery consulted. NG tube was able to be placed in the ED, KUB confirmed appropriate placement. NG tube to suction for now. N.p.o. status. IV morphine every 2 hours as needed for pain control. Maintenance IV fluids. 2. Preoperative evaluation ? Cardiology consulted for assistance with evaluation. Currently holding home aspirin and Eliquis. Patient is morbidly obese with BMI 47, has fairly poor functional status due to previous stroke and obesity. Hemoglobin A1c 7.3%, diabetes is actually fairly well-controlled. Will continue home beta-maren. Appreciate further cardiology recs. 3. Recent history of ascending aortic aneurysm repair and aortic valve replacement ? Surgery done at the [facility] in March 2023. Repeat echo recently done (in [facility] records) showed appropriate functioning of new aortic valve. Hemodynamically stable on room air on admit here. 4. Recent left MCA stroke ? With residual deficits of significant right arm weakness, moderate right leg weakness and mild speech dysfunction. PT/OT/case management consulted. Holding home aspirin, continue home statin. Chronic medical conditions: ? Morbid obesity: BMI 47 on admit. Complicates hospital course, care and prognosis. ? Type 2 diabetes mellitus: Blood glucose 305 on admit. A1c 7.3%. Home regimen of Lantus 12 units daily with sliding-scale insulin as needed with meals. Will start Lantus 10 units daily with sliding scale insulin, adjust as needed. ? GERD: Continue home PPI. ? Chronic pain with neuropathy: Continue home Lyrica, IV morphine as needed on for SBO as noted above. ? COPD: Stable, not in acute exacerbation. Continue home inhalers. ? Hyperlipidemia: Continue home statin. ? Insomnia: Continue home trazodone. DVT prophylaxis: SCDs CODE STATUS: Full code, verified Expected disposition: TBD Total clinical time spent by myself addressing the patient's medical issues, reviewing all the data, and collaborating with patient's care team: 55 minutes. Charges/Coding Visit Charges Inpatient E&M: 81188 Init Hosp L2
--- NOTE | 2023-06-22 16:37 | ED.RN ---
MULTIPLE ATTEMPTS FOR NG PLACEMENT IN BOTH NARE,NO SUCCESS. DR REYES NOTIFIED.
--- NOTE | 2023-06-22 18:00 | RAD_ITS ---
EXAM: XR ABDOMEN, 1 VIEW CLINICAL INDICATION: NG Insertion TECHNIQUE: Frontal supine view of the abdomen/pelvis. COMPARISON: No relevant prior studies available. FINDINGS: LOWER THORAX: No acute pathology. GASTROINTESTINAL TRACT: Unremarkable. Non-obstructive. No bowel or stomach distention. ORGANS: Unremarkable as visualized. No organomegaly. No abnormal calcifications. BONES/JOINTS: No acute pathology. SOFT TISSUES: No acute pathology. TUBES, LINES AND DEVICES: Nasogastric tube is in place with the distal tip in the proximal to mid stomach. RAD/Abdomen Single View (Portable) IMPRESSION: Nasogastric tube with the distal tip in the proximal to mid stomach. Electronically Signed: Angel Flores MD at 18:37 EDT ,
--- NOTE | 2023-06-22 18:16 | ED.RN ---
PLACMENT CONFIRMED PER DR CHOWDHURY
[2023-06-22 18:55] LABS: Hemoglobin A1c 7.3 % (3.8-5.6)
[2023-06-22 19:04] LABS: Bedside Glucose 244 mg/dL (74-106)
[2023-06-22] MEDS: 0.9% Normal Saline (1000mL) 1,000 ML 75 ML IV (23:09)
[2023-06-23] VITALS (10 sets, daily range): BP systolic 104–142; BP diastolic 60–81; PULSE 82–102; RESP 14–20; TEMP 36.1–37.1; O2SAT 89–98
[2023-06-23 00:05] LABS: Bedside Glucose 207 mg/dL (74-106)
--- NOTE | 2023-06-23 05:55 | RAD_ITS ---
INDICATION: sbo EXAMINATION/TECHNIQUE: X-RAY - XR Abdomen 1 View COMPARISON: CT abdomen/pelvis from 06/22/2023 FINDINGS: BOWEL GAS PATTERN: Enteric tube in the stomach. There are a few dilated loops of small bowel redemonstrated in the mid abdomen. FREE AIR: Not assessed on a single supine view. ORGANOMEGALY: Not seen. CALCIFICATIONS: No abnormal calcifications observed. LOWER CHEST: No acute pathology. BONES AND SOFT TISSUES: No acute pathology. RAD/Abdomen Single View (Portable) IMPRESSION: Enteric tube in the stomach. Dilated loops of small bowel redemonstrated. Electronically Signed: Ayo Howard MD at 5:24 EDT ,
[2023-06-23 06:11] LABS: Hematocrit 43.3 % (40-54); Hemoglobin 14.1 g/dL (13.0-16.5); Mean Corp Hgb Conc 32.6 g/dL (32-36); Mean Corpuscular Hgb 29.1 pg (27.0-32.0); Mean Corpuscular Volume 89.3 fL (80-94); Platelet Count 298 K/mm3 (150-450); RBC Distribution Width CV 14.5 % (11.6-14.6); RBC Distribution Width SD 46.7 fl (35.1-43.9); Red Blood Count 4.85 M/mm3 (4.6-6.2); White Blood Count 7.6 K/mm3 (4.4-11.0)
[2023-06-23] MEDS: Menthol/Lanolin/Calamine/Znox 113 GM Tube 1 APPLIC TOPICAL ×2 (06:30→20:38)
[2023-06-23] MEDS: 0.9% Saline Lock 10 ML Syringe IV (06:30)
[2023-06-23 06:48] LABS: Anion Gap 9 (5-15); BUN 32 mg/dL (7-18); Calcium,Total 8.9 mg/dL (8.5-10.1); Chloride 102 mmol/L (98-107); EST Glomerular Filtration Rate 81 mL/min (>60); Est Glom Filt Rate - Afr Amer 98 mL/min (>60); Estimated Creatinine Clearance 81.33 ml/min; Glucose 181 mg/dL (74-106); Potassium 2.9 mmol/L (3.5-5.1); Sodium Level 141 mmol/L (136-145)
[2023-06-23] MEDS: Budesonide Respules 0.5 MG/2 ML AMPUL.NEB. INHALATION ×2 (07:30→19:13)
[2023-06-23] MEDS: Albuterol 2.5 MG/3 ML VIAL.NEB. INHALATION ×3 (07:30→19:13)
[2023-06-23 07:58] LABS: Bedside Glucose 192 mg/dL (74-106)
--- NOTE | 2023-06-23 08:32 | PN.SURG_ITS ---
Subjective Subjective Patient reports he is feeling better this morning. He is passing flatus and not having any abdominal pain. He denies nausea or vomiting. Objective Data Objective Data Vital Signs: Vital Signs Temp Pulse Resp BP Pulse Ox O2 Del Method O2 Flow Rate 96.9 F L 83 14 136/63 H 94 Nasal Cannula 2 06/23/23 03:10 06/23/23 03:10 06/23/23 03:10 06/23/23 03:10 06/23/23 03:10 06/23/23 04:13 06/23/23 04:13 Oxygen Flow Rate (L/min) 2 Oxygen Delivery Method Nasal Cannula Weight: 243 lb 2.718 oz Body Mass Index (BMI) 47.5 Intake & Output: Intake and Output for Last 24 Hours 06/21/23 06/22/23 06/23/23 23:59 23:59 23:59 Intake Total 0 / 0 Output Total 1400 / 1400 Balance -1400 / -1400 Lab / Micro Data 06/23/23 03:55 06/23/23 03:55 Labs: Laboratory Results - last 24 hr 06/22/23 14:42: WBC 12.8 H, RBC 5.50, Hgb 16.0, Hct 47.8, MCV 86.9, MCH 29.1, MCHC 33.5, RDW Std Deviation 45.3 H, RDW Coeff of David 14.2, Plt Count 352, MPV 10.9, Immature Gran % (Auto) 0.400, Neut % (Auto) 77.0 H, Lymph % (Auto) 12.5 L, [place] % (Auto) 9.6, Eos % (Auto) 0.1, Baso % (Auto) 0.4, Absolute Neuts (auto) 9.9 H, Absolute Lymphs (auto) 1.61, Nucleated RBC % 0, Sodium 136, Potassium 3.6, Chloride 97 L, Carbon Dioxide 28.0, Anion Gap 11, BUN 30 H, Creatinine 1.25, Estim Creat Clear Calc 67.87, Est GFR (MDRD) Af Amer 75, Est GFR (MDRD) Non-Af 62, BUN/Creatinine Ratio 24.0 H, Glucose 305 H, Hemoglobin A1c 7.3 H, Calcium 9.5, Total Bilirubin 0.50, Direct Bilirubin 0.20, AST 16, ALT 14 L, Alkaline Phosphatase 129 H, Total Protein 7.4, Albumin 2.9 L, Globulin 4.5 H, Lipase 11 L 06/22/23 14:58: Urine Color Yellow, Urine Clarity Clear, Urine pH 5.0, Ur Specific [place] 1.025, Urine Protein 30 H, Urine Glucose (UA) Normal, Urine Ketones 5 H, Urine Occult Blood Negative, Urine Nitrite Negative, Urine Bilirubin 3 H, Urine Urobilinogen 1 H, Ur Leukocyte Esterase Negative, Urine RBC 0-5 SEEN, Urine WBC 0-5 SEEN, Ur Squamous Epith Cells 0-5 SEEN, Urine Bacteria 1+, Hyaline Casts 0-5 SEEN, Urine Mucus 0 SEEN 06/22/23 18:47: POC Glucose 244 H 06/22/23 22:56: POC Glucose 207 H 06/23/23 03:55: WBC 7.6, RBC 4.85, Hgb 14.1, Hct 43.3, MCV 89.3, MCH 29.1, MCHC 32.6, RDW Std Deviation 46.7 H, RDW Coeff of David 14.5, Plt Count 298, MPV 11.0, Sodium 141, Potassium 2.9 L, Chloride 102, Carbon Dioxide 30.0, Anion Gap 9, BUN 32 H, Creatinine 1.00, Estim Creat Clear Calc 81.33, Est GFR (MDRD) Af Amer 98, Est GFR (MDRD) Non-Af 81, BUN/Creatinine Ratio 32.0 H, Glucose 181 H, Calcium 8.9 06/23/23 06:29: POC Glucose 192 H Radiography Diagnostic Testing: Radiology Impression Abdomen/Pelvis CT 06/22/23 14:20 IMPRESSION: Small bowel obstruction with question of early ischemic change. Electronically Signed: Ronan Awan MD at 15:35 EDT , ADDENDUM: 06/22/23 [id number] IMPRESSION: Small bowel obstruction with question of early ischemic change. N.B. : The above Results were Read Back by Ronan Awan MD to Carmen Matthews MD, and understanding confirmed on 06/22/2023 15:37:25 (ET). Electronically Signed: Ronan Awan MD at 15:35 EDT , KUB X-Ray 06/22/23 18:00 IMPRESSION: Nasogastric tube with the distal tip in the proximal to mid stomach. Electronically Signed: Angel Flores MD at 18:37 EDT , KUB X-Ray 06/23/23 05:55 IMPRESSION: Enteric tube in the stomach. Dilated loops of small bowel redemonstrated. Electronically Signed: Ayo Howard MD at 5:24 EDT , Physical Exam Const oriented x3 and no apparent distress Resp normal respiratory effort GI soft to palpation and non-tender Assessment & Plan Assessment/Plan (1) Small bowel obstruction: PLAN: Patient has CT scan yesterday that showed small bowel obstruction. Today he is feeling much better and not having pain. I will order a small bowel follow-through to confirm that things are making it through before starting a diet and removing NG. If things do not move forward I will discuss with him surgical options. Raj Stevenson MD Pager: [facility] [address] [place] [address], [address] [place] [address] Office:
--- NOTE | 2023-06-23 08:36 | PN.HOSP_ITS ---
Reason for Visit Reason for Visit: Diagnoses Morbid (severe) obesity due to excess calories (06/22/23) Unspecified intestinal obstruction, unspecified as to partial versus complete obstruction (06/22/23) Objective Data Objective Data Vital Signs: Vital Signs Temp Pulse Resp BP Pulse Ox O2 Del Method O2 Flow Rate 36.1 C L 83 14 136/63 H 94 Nasal Cannula 2 06/23/23 03:10 06/23/23 03:10 06/23/23 03:10 06/23/23 03:10 06/23/23 03:10 06/23/23 04:13 06/23/23 04:13 Oxygen Flow Rate (L/min) 2 Oxygen Delivery Method Nasal Cannula Weight: 110.3 kg Body Mass Index (BMI) 47.5 Intake & Output: Intake and Output for Last 24 Hours 06/21/23 06/22/23 06/23/23 23:59 23:59 23:59 Intake Total 0 / 0 Output Total 1400 / 1400 Balance -1400 / -1400 Lab / Micro Data 06/23/23 03:55 06/23/23 03:55 Labs: Laboratory Results - last 24 hr 06/22/23 14:42: WBC 12.8 H, RBC 5.50, Hgb 16.0, Hct 47.8, MCV 86.9, MCH 29.1, MCHC 33.5, RDW Std Deviation 45.3 H, RDW Coeff of David 14.2, Plt Count 352, MPV 10.9, Immature Gran % (Auto) 0.400, Neut % (Auto) 77.0 H, Lymph % (Auto) 12.5 L, [place] % (Auto) 9.6, Eos % (Auto) 0.1, Baso % (Auto) 0.4, Absolute Neuts (auto) 9.9 H, Absolute Lymphs (auto) 1.61, Nucleated RBC % 0, Sodium 136, Potassium 3.6, Chloride 97 L, Carbon Dioxide 28.0, Anion Gap 11, BUN 30 H, Creatinine 1.25, Estim Creat Clear Calc 67.87, Est GFR (MDRD) Af Amer 75, Est GFR (MDRD) Non-Af 62, BUN/Creatinine Ratio 24.0 H, Glucose 305 H, Hemoglobin A1c 7.3 H, Calcium 9.5, Total Bilirubin 0.50, Direct Bilirubin 0.20, AST 16, ALT 14 L, Alkaline Phosphatase 129 H, Total Protein 7.4, Albumin 2.9 L, Globulin 4.5 H, Lipase 11 L 06/22/23 14:58: Urine Color Yellow, Urine Clarity Clear, Urine pH 5.0, Ur Specific [place] 1.025, Urine Protein 30 H, Urine Glucose (UA) Normal, Urine Ketones 5 H, Urine Occult Blood Negative, Urine Nitrite Negative, Urine Bilirubin 3 H, Urine Urobilinogen 1 H, Ur Leukocyte Esterase Negative, Urine RBC 0-5 SEEN, Urine WBC 0-5 SEEN, Ur Squamous Epith Cells 0-5 SEEN, Urine Bacteria 1+, Hyaline Casts 0-5 SEEN, Urine Mucus 0 SEEN 06/22/23 18:47: POC Glucose 244 H 06/22/23 22:56: POC Glucose 207 H 06/23/23 03:55: WBC 7.6, RBC 4.85, Hgb 14.1, Hct 43.3, MCV 89.3, MCH 29.1, MCHC 32.6, RDW Std Deviation 46.7 H, RDW Coeff of David 14.5, Plt Count 298, MPV 11.0, Sodium 141, Potassium 2.9 L, Chloride 102, Carbon Dioxide 30.0, Anion Gap 9, BUN 32 H, Creatinine 1.00, Estim Creat Clear Calc 81.33, Est GFR (MDRD) Af Amer 98, Est GFR (MDRD) Non-Af 81, BUN/Creatinine Ratio 32.0 H, Glucose 181 H, Calcium 8.9 06/23/23 06:29: POC Glucose 192 H Radiography Diagnostic Testing: Radiology Impression Abdomen/Pelvis CT 06/22/23 14:20 IMPRESSION: Small bowel obstruction with question of early ischemic change. Electronically Signed: Ronan Awan MD at 15:35 EDT , ADDENDUM: 06/22/23 [id number] IMPRESSION: Small bowel obstruction with question of early ischemic change. N.B. : The above Results were Read Back by Ronan Awan MD to Carmen Matthews MD, and understanding confirmed on 06/22/2023 15:37:25 (ET). Electronically Signed: Ronan Awan MD at 15:35 EDT , KUB X-Ray 06/22/23 18:00 IMPRESSION: Nasogastric tube with the distal tip in the proximal to mid stomach. Electronically Signed: Angel Flores MD at 18:37 EDT , KUB X-Ray 06/23/23 05:55 IMPRESSION: Enteric tube in the stomach. Dilated loops of small bowel redemonstrated. Electronically Signed: Ayo Howard MD at 5:24 EDT , Assessment & Plan Assessment/Plan (1) Small bowel obstruction: (2) Morbid obesity: PLAN: Plan Recurrent small bowel obstruction * Management per surgery continue NGT and NPO. * small bowel follow-through ordered and shows ongoing SBO. * NQSIP performed and patient as I had a higher risk for serious complication, any complication, readmission, return to the OR and discharged to nursing or rehab facility. These potential complication would be expected se given the patient's baseline performance status and comorbidities, however, patient is otherwise medically stable to proceed with surgery, if necessary. I do not feel additional cardiology consultation is necessary for clearance. Recent history of ascending aortic aneurysm repair and aortic valve replacement * Performed at [facility] 03/2023. Recent left MCA stroke * Residual deficits of significant right arm weakness, moderate right leg weakness and mild speech dysfunction. * PT/OT/case management consulted. ASA and statin. Chronic medical conditions: * Class III obesity?Complicates hospital course, care and prognosis. * Type 2 diabetes mellitus: Blood glucose 305 on admit. A1c 7.3%. Home regimen of Lantus 12 units daily with sliding-scale insulin as needed with meals. Will start Lantus 10 units daily with sliding scale insulin, adjust as needed. * GERD: Continue home PPI. * Chronic pain with neuropathy: Continue home Lyrica, IV morphine as needed on for SBO as noted above. * COPD: Stable, not in acute exacerbation. Continue home inhalers. * Hyperlipidemia: Continue home statin. * Insomnia: Continue home trazodone. DVT prophylaxis: SCDs CODE STATUS: Full code, verified Expected disposition: TBD Charges/Coding Visit Charges Inpatient E&M: 85930 Subs Hosp L2
--- NOTE | 2023-06-23 09:15 | RAD_ITS ---
STUDY: GASTROGRAFIN SMALL BOWEL FOLLOW-THROUGH EXAMINATION. REASON FOR EXAM: Male, 62 years old. sbo -- gastrograffin TECHNIQUE: Gastrografin was introduced through the indwelling nasogastric tube. Imaging was obtained. COMPARISON: Comparison is made with prior abdominal radiograph dated June 23, 2023 early in the morning. FINDINGS: Radiograph demonstrates small bowel dilatation. Contrast is seen within the small bowel loops. The small bowel loops aren''t dilated. Contrast is seen within the distal ileum and the right hemicolon at 2 hours. Findings are suggestive of partial small bowel obstruction. RAD/Small Bowel Series Only IMPRESSION: Findings are suggestive of partial small bowel obstruction. The colon is filled with 2 hours following the introduction of Gastrografin. Electronically Signed: Suresh Gomez MD at 13:40 EDT ,
[2023-06-23 11:43] LABS: Bedside Glucose 229 mg/dL (74-106)
[2023-06-23] MEDS: Morphine 2 MG/ML Syringe IV ×5 (13:42→22:50)
[2023-06-23] MEDS: Potassium Chloride 10mEq/100mL 10 MEQ/100 ML IV.SOLN. 100 MEQ IV BOLUS ×4 (14:15→17:51)
--- NOTE | 2023-06-23 14:25 | CASEMGMT ---
THOMAS SANTIAGO Assessment: THOMAS SANTIAGO to room to meet with pt for initial transition planning/care coordination assessment. Pt resting in bed in no distress. THOMAS SANTIAGO introduced self and role at [facility], pt voices understanding and consents to assessment. Pt is A/O and answers questions appropriately, although he did state could not remember some of the specific names/info, so asked THOMAS SANTIAGO to call his . Call placed to pt's while RN PAMELA @ pt's bedside and the following info obtained from both pt and . Care providers, pharmacy, and demographics verified/updated. PCP:Drew Specialists:Pt sees air technician at [facility] and possible a senior ruby developer, but not sure. Pt has upcoming appt w/Neurologist, Dr Pierce, in July 02. Dr Alcocer-card/surgeon @ [facility]. Pt also sees Dr López, either air technician or vascular doctor from [facility] that comes to [place]. Preferred Pharmacy: [facility] Insurance: [facility] Prescription Benefit: yes LNOK: Shweta Catherine, ; Apple Gloria, dtr. Son Living Arrangements: Pt and his are currently staying @ their son's home in [place] on [address]. Son's girlfriend and daughter also live there. Pt has an aide that comes 2 x's/week that sponge-bathes pt and either dtr or DIL assist w/showering/bathing him once a week in addition. Family does meals and home mgnt tasks. CM/[facility]/SQL DATABASE ADMINISTRATOR: Pt has Passport services and has a CM thru [facility], but neither pt nor his remember her name and an aide comes 2 x's/week Jaki YI, made aware. Transportation: Family DME: Pt has a WW, W/C, scooter (currently it is located at pt's home), CPAP (has but does not use), pulse ox, gait belt, rails, BSC, shower chair, CGM w/sensors and BGM with sufficient supply of strips, lancets, and insulin. Pt had a hospital bed, but did not like it, so it was returned. Pt currently sleeps in a recliner. HHC/SNF: Pt was @ [facility] in 2023 after CVA. Pt is currently active w/[facility] and is receiving SN, PT/OT, SW, and aide services. states he was getting ST, but they have discharged this service. would like JUSTIN w/[facility] and declines wanting list of other HHC options and pt is agreeable. Fide DOUBLER HELPER CM, made aware. Pt and state no concerns with pt going home at time of dc. They voice no further concerns/needs. CM to follow. Advised them to ask for CM if any further question/concerns/needs arise. They voice understanding. Plan: Home w/[facility] Ha C. Sabra WINKLERN RN CM
--- NOTE | 2023-06-23 14:39 | CASEMGMT ---
Discharge Planning resumption order sent via [facility] to [facility]. Marley Conklin, Discharge Planning Asst.
[2023-06-23] MEDS: Insulin Lispro 100 UNIT/ML INSULN.PEN SC (17:53)
[2023-06-23 18:18] LABS: Bedside Glucose 181 mg/dL (74-106)
[2023-06-23] MEDS: Atorvastatin Calcium 10 MG Tablet PO (20:36)
[2023-06-23] MEDS: Pregabalin 50 MG Capsule 100 MG PO (20:36)
[2023-06-23] MEDS: traZODone 50 MG Tablet PO (20:36)
[2023-06-24 01:35] LABS: Bedside Glucose 150 mg/dL (74-106)
--- NOTE | 2023-06-24 05:00 | RAD_ITS ---
INDICATION: sbo EXAMINATION/TECHNIQUE: X-RAY - XR Abdomen 1 View portable. 5:02 AM COMPARISON: Abdomen x-ray 06/23/2023 FINDINGS: AP supine view. There is residual contrast throughout the colon to the rectum from the prior study. No dilated small bowel. Previously noted dilated small bowel is decreased. Sensitivity for free air limited on supine view. Surgical hardware in the lumbar spine. Lung bases were not included. RAD/Abdomen Single View (Portable) IMPRESSION: No bowel obstruction. Residual contrast in the colon with decreased small bowel dilatation. Electronically Signed: Marlene Singletary MD at 8:06 EDT ,
[2023-06-24 05:21] VITALS: BP 119/58; PULSE 97; RESP 18; TEMP 36.3; O2SAT 93
[2023-06-24] MEDS: Morphine 2 MG/ML Syringe IV ×2 (05:28→11:41)
[2023-06-24] MEDS: Insulin Lispro 100 UNIT/ML INSULN.PEN SC ×2 (05:33→11:35)
[2023-06-24] MEDS: Menthol/Lanolin/Calamine/Znox 113 GM Tube 1 APPLIC TOPICAL (05:34)
[2023-06-24 05:55] LABS: Bedside Glucose 164 mg/dL (74-106)
[2023-06-24 06:56] VITALS: PULSE 103; RESP 16; O2SAT 92
[2023-06-24] MEDS: Albuterol 2.5 MG/3 ML VIAL.NEB. INHALATION (06:56)
[2023-06-24] MEDS: Budesonide Respules 0.5 MG/2 ML AMPUL.NEB. INHALATION (06:56)
--- NOTE | 2023-06-24 07:56 | PN.HOSP_ITS ---
Reason for Visit Reason for Visit: Diagnoses Morbid (severe) obesity due to excess calories (06/22/23) Unspecified intestinal obstruction, unspecified as to partial versus complete obstruction (06/22/23) Subjective Subjective Feeling better. NGT removed. Objective Data Objective Data Vital Signs: Vital Signs Temp Pulse Resp BP Pulse Ox O2 Del Method O2 Flow Rate 36.3 C L 103 H 16 119/58 L 92 Room Air 1 06/24/23 05:21 06/24/23 06:56 06/24/23 06:56 06/24/23 05:21 06/24/23 06:56 06/24/23 06:56 06/23/23 12:10 Oxygen Flow Rate (L/min) 1 Oxygen Delivery Method Room Air Weight: 110.3 kg Body Mass Index (BMI) 47.5 Intake & Output: Intake and Output for Last 24 Hours 06/22/23 06/23/23 06/24/23 23:59 23:59 23:59 Intake Total 1880.00 / 1880.00 Output Total 2150 / 2150 Balance -270.00 / -270.00 Lab / Micro Data 06/24/23 06:15 06/24/23 06:15 Labs: Laboratory Results - last 24 hr 06/23/23 06:29: POC Glucose 192 H 06/23/23 11:25: POC Glucose 229 H 06/23/23 17:48: POC Glucose 181 H 06/23/23 23:38: POC Glucose 150 H 06/24/23 05:32: POC Glucose 164 H Radiography Diagnostic Testing: Radiology Impression Small Bowel X-Ray 06/23/23 09:15 IMPRESSION: Findings are suggestive of partial small bowel obstruction. The colon is filled with 2 hours following the introduction of Gastrografin. Electronically Signed: Suresh Gomez MD at 13:40 EDT , Physical Exam Const alert and no apparent distress HEENT head/scalp atraumatic and moist oral mucous membranes Resp normal respiratory effort and no retractions Cardio regular rate and regular rhythm Assessment & Plan Assessment/Plan (1) Small bowel obstruction: (2) Morbid obesity: PLAN: Plan Recurrent small bowel obstruction * Management per surgery continue NGT and NPO. * small bowel follow-through ordered and shows ongoing SBO. * NQSIP performed and patient as I had a higher risk for serious complication, any complication, readmission, return to the OR and discharged to nursing or rehab facility. These potential complication would be expected se given the patient's baseline performance status and comorbidities, however, patient is otherwise medically stable to proceed with surgery, if necessary. I do not feel additional cardiology consultation is necessary for clearance. * NGT removed. Diet advanced. Recent history of ascending aortic aneurysm repair and aortic valve replacement * [facility] Recent left MCA stroke * Residual deficits of significant right arm weakness, moderate right leg weakness and mild speech dysfunction. * PT/OT/case management consulted. ASA and statin. Chronic medical conditions: * Class III obesity?Complicates hospital course, care and prognosis. * Type 2 diabetes mellitus: Blood glucose 305 on admit. A1c 7.3%. Home regimen of Lantus 12 units daily with sliding-scale insulin as needed with meals. Will start Lantus 10 units daily with sliding scale insulin, adjust as needed. * GERD: Continue home PPI. * Chronic pain with neuropathy: Continue home Lyrica, IV morphine as needed on for SBO as noted above. * COPD: Stable, not in acute exacerbation. Continue home inhalers. * Hyperlipidemia: Continue home statin. * Insomnia: Continue home trazodone. DVT prophylaxis: SCDs CODE STATUS: Full code, verified Expected disposition: TBD Charges/Coding Visit Charges Inpatient E&M: 30401 Subs Hosp L2
[2023-06-24 08:02] LABS: Absolute Lymphocyte Count 1.49 X10^3/uL (0.83-4.51); Absolute Neutrophil Count 3.7 X10^3/uL (2.0-7.7); Basophil# 0.05 X10^3/uL; Basophil% 0.8 % (0-1); Eosinophil# 0.07 X10^3/uL; Eosinophils% 1.2 % (0-5); Hematocrit 39.3 % (40-54); Hemoglobin 12.6 g/dL (13.0-16.5); Lymphocyte # 1.49 X10^3/ul (0.83-4.51); Lymphocyte % 24.7 % (19-41); Mean Corp Hgb Conc 32.1 g/dL (32-36); Mean Corpuscular Hgb 28.8 pg (27.0-32.0); Mean Corpuscular Volume 89.9 fL (80-94); Mean Platelet Vol. 10.9 fl (6.2-12.0); Monocyte% 11.6 % (0-10); NRBC Flagged by Analyzer 0 % (0-5); Neutrophil # 3.71 X10^3/uL (2.7-7.7); Neutrophil % 61.5 % (47-70); Platelet Count 227 K/mm3 (150-450); RBC Distribution Width CV 14.3 % (11.6-14.6); RBC Distribution Width SD 46.9 fl (35.1-43.9); Red Blood Count 4.37 M/mm3 (4.6-6.2)
[2023-06-24 08:38] LABS: Anion Gap 7 (5-15); BUN 24 mg/dL (7-18); BUN/Creat Ratio 28.6 RATIO (10-20); Calcium,Total 8.7 mg/dL (8.5-10.1); Chloride 101 mmol/L (98-107); Creatinine, Serum 0.84 mg/dL (0.70-1.30); EST Glomerular Filtration Rate 99 mL/min (>60); Est Glom Filt Rate - Afr Amer 120 mL/min (>60); Estimated Creatinine Clearance 104.03 ml/min; Glucose 169 mg/dL (74-106); Potassium 2.8 mmol/L (3.5-5.1); Sodium Level 137 mmol/L (136-145)
[2023-06-24 09:05] VITALS: BP 109/56; PULSE 99; RESP 18; TEMP 36.3; O2SAT 93
[2023-06-24] MEDS: Aspirin E.C. 81 MG Tablet PO (09:09)
[2023-06-24] MEDS: Pantoprazole Sodium 40 MG Tablet PO (09:10)
[2023-06-24] MEDS: Pregabalin 50 MG Capsule 100 MG PO (09:11)
--- NOTE | 2023-06-24 10:03 | PCM.PN.SRG ---
Subjective Subjective Patient seen and examined during AM rounds. He is found on the edge of his bed with help nearby as he is making his way to the bedside commode. He shares that he has had a number of loose bowel movements. He denies any nausea with his liquid diet. Objective Data Objective Data Vital Signs: Vital Signs Temp Pulse Resp BP Pulse Ox O2 Del Method O2 Flow Rate 97.3 F L 99 18 109/56 L 93 Nasal Cannula 2 06/24/23 09:05 06/24/23 09:05 06/24/23 09:05 06/24/23 09:05 06/24/23 09:05 06/24/23 09:05 06/24/23 09:05 Oxygen Flow Rate (L/min) 2 Oxygen Delivery Method Nasal Cannula Weight: 243 lb 2.718 oz Body Mass Index (BMI) 47.5 Intake & Output: Intake and Output for Last 24 Hours 06/22/23 06/23/23 06/24/23 23:59 23:59 23:59 Intake Total 1880.00 / 1880.00 Output Total 2150 / 2150 Balance -270.00 / -270.00 Lab / Micro Data 06/24/23 06:15 06/24/23 06:15 Labs: Laboratory Results - last 24 hr 06/23/23 11:25: POC Glucose 229 H 06/23/23 17:48: POC Glucose 181 H 06/23/23 23:38: POC Glucose 150 H 06/24/23 05:32: POC Glucose 164 H 06/24/23 06:15: WBC 6.0, RBC 4.37 L, Hgb 12.6 L, Hct 39.3 L, MCV 89.9, MCH 28.8, MCHC 32.1, RDW Std Deviation 46.9 H, RDW Coeff of David 14.3, Plt Count 227, MPV 10.9, Immature Gran % (Auto) 0.200, Neut % (Auto) 61.5, Lymph % (Auto) 24.7, [place] % (Auto) 11.6 H, Eos % (Auto) 1.2, Baso % (Auto) 0.8, Absolute Neuts (auto) 3.7, Absolute Lymphs (auto) 1.49, Nucleated RBC % 0, Sodium 137, Potassium 2.8 L, Chloride 101, Carbon Dioxide 29.0, Anion Gap 7, BUN 24 H, Creatinine 0.84, Estim Creat Clear Calc 104.03, Est GFR (MDRD) Af Amer 120, Est GFR (MDRD) Non-Af 99, BUN/Creatinine Ratio 28.6 H, Glucose 169 H, Calcium 8.7 Radiography Diagnostic Testing: Radiology Impression Small Bowel X-Ray 06/23/23 09:15 IMPRESSION: Findings are suggestive of partial small bowel obstruction. The colon is filled with 2 hours following the introduction of Gastrografin. Electronically Signed: Suresh Gomez MD at 13:40 EDT , KUB X-Ray 06/24/23 05:00 IMPRESSION: No bowel obstruction. Residual contrast in the colon with decreased small bowel dilatation. Electronically Signed: Marlene Singletary MD at 8:06 EDT , Physical Exam Const oriented x3 Constitutional Narrative: In mild distress due to feelings of needing to have a bowel movement imminently Resp normal respiratory effort GI GI Narrative: Obese, mildly distended, soft, nontender to palpation x 4 quadrants Assessment & Plan Assessment/Plan (1) Small bowel obstruction: PLAN: Patient has CT scan 2 days ago that showed small bowel obstruction. Yesterday he completed a small bowel follow-through with normal transit time and his KUB this morning shows no evidence of obstruction. He reports that he tolerated advanced to a liquid diet without issue. He is having ongoing bowel function. Recommend further advancement of his diet and if tolerated he is cleared for discharge from a surgical standpoint. Dwight Chacon MD General Surgery Endocrine Surgery Pager: [facility] [address] [place] [address], [facility], [address] [place] [address] Office: [phone]
[2023-06-24 11:32] LABS: Bedside Glucose 235 mg/dL (74-106)
[2023-06-24] MEDS: Insulin Glargine-YFGN 100 UNIT/ML Pen 10 UNIT SC (11:36)
[2023-06-24] MEDS: 0.9% Saline Lock 10 ML Syringe IV (11:42)
[2023-06-24 12:33] VITALS: BP 146/72; PULSE 96; RESP 16; TEMP 36.4; O2SAT 95
[2023-06-24 12:35] VITALS: BP 146/72; PULSE 96; RESP 16; TEMP 36.4; O2SAT 95
--- NOTE | 2023-06-24 13:00 | DS.PCM_ITS ---
Providers Date of Admission: 06/22/23 Primary Care Physician: Dr. Juan Miguel Russell MD Consultations 06/23/23 08:38 Consult: General Surgery Routine Consulting Provider: Raj Stevenson Reason for Consult: SBO EMERGENT Consult: No MD Notified: Yes Date Notified: 06/23/23 Time Notified: 08:38 Method of Notification: ED Physician Initiated Reason For Visit: SMALL BOWEL OBSTRUCTION Diagnosis Discharge Diagnosis (1) Small bowel obstruction: Status: Acute Code(s): K56.609 - Unspecified intestinal obstruction, unspecified as to partial versus complete obstruction (2) Morbid obesity: Status: Acute Code(s): E66.01 - Morbid (severe) obesity due to excess calories Plan Recurrent small bowel obstruction * Management per surgery continue NGT and NPO. * small bowel follow-through ordered and shows ongoing SBO. * NQSIP performed and patient as I had a higher risk for serious complication, any complication, readmission, return to the OR and discharged to nursing or rehab facility. These potential complication would be expected se given the patient's baseline performance status and comorbidities, however, patient is otherwise medically stable to proceed with surgery, if necessary. I do not feel additional cardiology consultation is necessary for clearance. * NGT removed. Diet advanced. Recent history of ascending aortic aneurysm repair and aortic valve replacement * Performed at [facility] 03/2023. Recent left MCA stroke * Residual deficits of significant right arm weakness, moderate right leg weakness and mild speech dysfunction. * PT/OT/case management consulted. ASA and statin. Chronic medical conditions: * Class III obesity?Complicates hospital course, care and prognosis. * Type 2 diabetes mellitus: Blood glucose 305 on admit. A1c 7.3%. Home regimen of Lantus 12 units daily with sliding-scale insulin as needed with meals. Will start Lantus 10 units daily with sliding scale insulin, adjust as needed. * GERD: Continue home PPI. * Chronic pain with neuropathy: Continue home Lyrica, IV morphine as needed on for SBO as noted above. * COPD: Stable, not in acute exacerbation. Continue home inhalers. * Hyperlipidemia: Continue home statin. * Insomnia: Continue home trazodone. DVT prophylaxis: SCDs CODE STATUS: Full code, verified Expected disposition: TBD Medications at Discharge Home Medications atorvastatin 10 mg tablet 10 mg PO QHS 11/03/16 budesonide-formoterol HFA 80 mcg-4.5 mcg/actuation aerosol inhaler 2 puff inhalation BID 10/30/20 pantoprazole 40 mg tablet,delayed release 40 mg PO DAILY 10/30/20 acetaminophen 500 mg tablet 1,000 mg PO TID PRN Pain 10/18/21 albuterol sulfate 90 mcg/actuation aerosol inhaler (Ventolin HFA) 1 - 2 puff inhalation Q4H PRN PRN Wheezing #8.5 grams 10/18/21 insulin aspart U-100 100 unit/mL (3 mL) subcutaneous pen (Novolog FlexPen U-100 Insulin aspart) 2 unit subcut TID 10/14/22 insulin glargine 100 unit/mL (3 mL) subcutaneous pen 12 unit subcut .QAM 10/14/22 pregabalin 100 mg capsule (Lyrica) 100 mg PO DAILY NEUROPATHY 10/14/22 amlodipine 5 mg tablet 5 mg PO DAILY 06/22/23 apixaban 5 mg tablet (Eliquis) 5 mg PO BID 06/22/23 aspirin 81 mg tablet,delayed release (Adult Aspirin Regimen) 81 mg PO DAILY 06/22/23 bumetanide 1 mg tablet 2 mg PO BID 06/22/23 docusate sodium 100 mg capsule (Col-Rite) 100 mg PO DAILY PRN constipation 06/22/23 metoprolol tartrate 25 mg tablet 37.5 mg PO Q12H 06/22/23 [id number] 300 mcg-K 60 mcg-lycop 600 mcg-lutein 300 mcg tablet (Centrum Silver Men) 1 tab PO DAILY 06/22/23 ondansetron HCl 4 mg tablet 4 mg PO Q8H PRN PRN nausea and vomiting 06/22/23 pregabalin 200 mg capsule 200 mg PO DAILY 06/22/23 tramadol 50 mg tablet 50 mg PO Q6H PRN 06/22/23 trazodone 50 mg tablet 50 mg PO QHS 06/22/23 calcium carbonate 500 mg (2.5 x 200 mg calcium (500 mg)) PO Q6H PRN PRN HEARTBURN #0 tabs 06/24/23 Hospital Course Operations None Procedures None Summary of Care Provided Minutes Spent on Discharge: 32 Hospital Course: Patient has small bowel traction. NG tube was placed. Small bowel obstruction ventral resolved NG tube was discontinued and diet was advanced. Type patient tolerated the diet. Patient be discharged home. Weight / BMI Weight Weight: 110.3 kg Body Mass Index (BMI) 47.5 ABG / Lab / Microbiology Data 06/24/23 06:15 06/24/23 06:15 Laboratory: Laboratory Results - last 24 hr 06/23/23 17:48: POC Glucose 181 H 06/23/23 23:38: POC Glucose 150 H 06/24/23 05:32: POC Glucose 164 H 06/24/23 06:15: WBC 6.0, RBC 4.37 L, Hgb 12.6 L, Hct 39.3 L, MCV 89.9, MCH 28.8, MCHC 32.1, RDW Std Deviation 46.9 H, RDW Coeff of David 14.3, Plt Count 227, MPV 10.9, Immature Gran % (Auto) 0.200, Neut % (Auto) 61.5, Lymph % (Auto) 24.7, [place] % (Auto) 11.6 H, Eos % (Auto) 1.2, Baso % (Auto) 0.8, Absolute Neuts (auto) 3.7, Absolute Lymphs (auto) 1.49, Nucleated RBC % 0, Sodium 137, Potassium 2.8 L , Chloride 101, Carbon Dioxide 29.0, Anion Gap 7, BUN 24 H, Creatinine 0.84, Estim Creat Clear Calc 104.03, Est GFR (MDRD) Af Amer 120, Est GFR (MDRD) Non-Af 99, BUN/Creatinine Ratio 28.6 H, Glucose 169 H, Calcium 8.7 06/24/23 11:15: POC Glucose 235 H Radiography Diagnostic Testing: Radiology Impression Small Bowel X-Ray 06/23/23 09:15 IMPRESSION: Findings are suggestive of partial small bowel obstruction. The colon is filled with 2 hours following the introduction of Gastrografin. Electronically Signed: Suresh Gomez MD at 13:40 EDT , KUB X-Ray 06/24/23 05:00 IMPRESSION: No bowel obstruction. Residual contrast in the colon with decreased small bowel dilatation. Electronically Signed: Marlene Singletary MD at 8:06 EDT , D/C Instructions Discharge Diet: 2000 Calorie Control Diet (bland, advance as tolerated.) Meaningful Use Info Meaningful Use Meaningful Use Diagnoses (Choose all that apply): None applicable Ischemic Stroke Statin Dosing Therapy Reference: STATIN DOSE THERAPY REFERENCE: * Patients > 75 years receive moderate or high dose statin therapy. * Patients 75 years or YOUNGER should receive HIGH intensity statin dose unless contraindicated. You will be required to document reason for non-treatment if statin daily dose does not meet guidelines. HIGH DOSE STATIN THERAPY DAILY Atorvastatin > than or = to 40 mg Rosuvastatin > than or = to 20 mg Amlodipine + Atorvastatin > than or = to 2.5/40 mg Ezetimibe + Simvastatin 10/80 mg Simvastatin 80mg Discharge Plan Admission Admit Date/Time: 06/22/23 17:23 Primary Reason for Your Visit: Small bowel obstruction Attending Provider: Trip Fraire Primary Care Provider: Juan Miguel Russell Consulting Providers: Patrick Sharma; Raj Stevenson Discharge Orders/Prescriptions Prescriptions: New calcium carbonate 200 mg calcium (500 mg) Tablet,Chewable 500 mg PO Q6H PRN PRN (Reason: HEARTBURN) Qty: 0 0RF Continued insulin glargine 100 unit/mL (3 mL) insulin pen 12 unit subcut .QAM pregabalin [Lyrica] 100 mg capsule 100 mg PO DAILY atorvastatin 10 MG tablet 10 mg PO QHS budesonide-formoterol 80-4.5 mcg/actuation Hfa Aerosol Inhaler 2 puff INHALATION BID pantoprazole 40 mg Tablet,Delayed Release (Dr/Ec) 40 mg PO DAILY insulin aspart U-100 [Novolog FlexPen U-100 Insulin] 100 unit/mL (3 mL) insulin pen 2 unit SUBCUT TID Rx Instructions: 2 units per every 50 after 200 BG acetaminophen 500 MG tablet 1,000 mg PO TID PRN (Reason: Pain) albuterol sulfate [Ventolin HFA] 90 mcg/actuation HFA aerosol inhaler 1 - 2 puff inhalation Q4H PRN PRN (Reason: Wheezing) Qty: 8.5 0RF amlodipine 5 mg tablet 5 mg PO DAILY tramadol 50 mg tablet 50 mg PO Q6H PRN bumetanide 1 mg tablet 2 mg PO BID metoprolol tartrate 25 mg tablet 37.5 mg PO Q12H pregabalin 200 mg capsule 200 mg PO DAILY Eliquis 5 mg tablet 5 mg PO BID trazodone 50 mg tablet 50 mg PO QHS ondansetron HCl 4 mg tablet 4 mg PO Q8H PRN PRN (Reason: nausea and vomiting) aspirin [Adult Aspirin Regimen] 81 mg tablet,delayed release (DR/EC) 81 mg PO DAILY docusate sodium [Col-Rite] 100 mg capsule 100 mg PO DAILY PRN (Reason: constipation) Centrum Silver Men [id number] mcg tablet 1 tab PO DAILY Referrals / Follow Up: Juan Miguel Russell MD [Primary Care Provider] - Within 2 Weeks Disposition Disposition (needs filled in before D/C Order can be placed): Home, Self Care Charges/Coding Visit Charges Inpatient E&M: 13509 Disch Hosp
--- NOTE | 2023-06-24 13:54 | CPS ---
Medication placed back in med system
[2023-06-24 14:00] VITALS: O2SAT 93; O2SAT 95
--- NOTE | 2023-06-24 14:19 | NURSING ---
I spoke to [facility] to let them know patient is being discharged today, I also faxed over the discharge summary.
== END 2023-06-24 16:15 | disposition home or self-care (01) | DRG 389 ==
LOC: ED 16:30 → PCU 17:39
PROVIDERS: Admitting Provider Hospitalist; Emergency Provider Emergency Medicine; PCP Family Medicine; Referring Provider Hospitalist
DX: K56.609 Unspecified intestinal obstruction, unspecified as to partial versus complete obstruction (principal); I69.351 Hemiplegia and hemiparesis following cerebral infarction affecting right dominant side; Z68.41 Body mass index [BMI] 40.0-44.9, adult; E11.40 Type 2 diabetes mellitus with diabetic neuropathy, unspecified; J44.9 Chronic obstructive pulmonary disease, unspecified; E66.01 Morbid (severe) obesity due to excess calories; Z79.4 Long term (current) use of insulin; I10 Essential (primary) hypertension; I25.10 Atherosclerotic heart disease of native coronary artery without angina pectoris; I69.328 Other speech and language deficits following cerebral infarction; E78.5 Hyperlipidemia, unspecified; K21.9 Gastro-esophageal reflux disease without esophagitis; F17.210 Nicotine dependence, cigarettes, uncomplicated; Z95.2 Presence of prosthetic heart valve; G47.00 Insomnia, unspecified; G89.29 Other chronic pain; Z79.01 Long term (current) use of anticoagulants; Z79.82 Long term (current) use of aspirin; Z79.84 Long term (current) use of oral hypoglycemic drugs; Z79.899 Other long term (current) drug therapy
CPT/HCPCS: 36415; 74018; 74176; 74250; 80048; 80076; 81001; 82962; 83036; 83690; 85025; 85027; 94640; 94668; 97110; 97162; 97166; 99285; J7030; A4216

== ENCOUNTER → 2023-06-28 | Outpatient (CLI) | payer MEDICARE, MEDICAID, SELFPAY ==
--- NOTE | 2023-06-28 09:06 | ECHOCS_ITS ---
Reason For Study: AORTIC VALVE REPLACEMENT Procedure This was a 2D Doppler, Color Flow transthoracic echocardiogram. The study was technically difficult. Contrast injection was performed. Exam performed in department. Left Ventricle Normal LV size. Mild concentric left ventricular hypertrophy. The left ventricular ejection fraction is 65 %. Normal diastology for age. Right Ventricle Normal right ventricle. Atria The left atrium is mildly enlarged. Normal right atrium. Mitral Valve Trivial mitral valve insufficiency. Tricuspid Valve Normal tricuspid valve. Aortic Valve Bioprosthetic aortic valve functioning normally. Mean peak gradient 5.2 mmHg. Pulmonic Valve The pulmonic valve is not well visualized. Great Vessels Normal sized aortic root. Pericardium/Pleural No pericardial effusion. MMode/2D Measurements & Calculations LVIDd: 4.5 cm IVSd: 1.3 cm LVOT diam: 2.2 cm LVIDs: 3.0 cm LVPWd: 1.1 cm LVOT area: 3.9 cm2 RVDd: 3.5 cm FS: 32.8 % Ao root diam: 3.6 cm LAV(MOD-bp): 36.2 ml LVAd ap4: 36.8 cm2 LAV(MOD-bp) Indexed: 18.6 ml/m2 LVLd ap4: 8.2 cm LAV(MOD-sp2): 36.1 ml EDV(MOD-sp4): 136.4 ml LAV(MOD-sp4): 34.2 ml EDV(sp4-el): 140.5 ml LVAs ap4: 23.4 cm2 LVLs ap4: 7.5 cm ESV(MOD-sp4): 63.2 ml ESV(sp4-el): 61.5 ml EF(MOD-sp4): 53.7 % EF(sp4-el): 56.2 % LVAd ap2: 35.0 cm2 SV(MOD-sp4): 73.2 ml SV(MOD-sp2): 71.6 ml LVLd ap2: 8.2 cm EDV(MOD-sp2): 122.8 ml EDV(sp2-el): 126.3 ml LVAs ap2: 21.3 cm2 LVLs ap2: 7.2 cm ESV(MOD-sp2): 51.3 ml ESV(sp2-el): 53.3 ml EF(MOD-sp2): 58.3 % SV(sp4-el): 79.0 ml LA dimension(2D): 4.8 cm LA A4 area: 15.4 cm2 RA A4 area: 16.5 cm2 TAPSE: 1.5 cm Time Measurements MV dec time: 0.29 sec Doppler Measurements & Calculations MV E max arsh: 76.9 cm/sec Lat Peak E' Arsh: 7.4 cm/sec Med Peak E' Arsh: 7.2 cm/sec MV A max arsh: 83.8 cm/sec E/E' lat: 10.3 E/E' med: 10.7 MV E/A: 0.92 Ao V2 max: 158.3 cm/sec LV V1 max: 99.6 cm/sec MV dec slope: 269.6 cm/sec2 Ao max P.0 mmHg LV V1 max P.2 mmHg Ao V2 mean: 106.4 cm/sec LV V1 mean P.2 mmHg Ao mean P.2 mmHg LV V1 mean: 67.9 cm/sec Ao V2 VTI: 30.3 cm LV V1 VTI: 20.0 cm AV (velocity ratio): 0.66 MARY(I,D): 2.6 cm2 MARY(V,D): 2.5 cm2 SV(LVOT): 77.9 ml PA V2 max: 98.7 cm/sec PA max PG (full): 2.2 mmHg ECHO/Echo Complete W/ Contrast Interpretation Summary Mild concentric left ventricular hypertrophy. The left ventricular ejection fraction is 65 %. The left atrium is mildly enlarged. Bioprosthetic aortic valve functioning normally. Mean peak gradient 5.2 mmHg. The study was technically difficult. Ordering Physician: KIRK BARCENAS Performed By: Alicia French RDCS
== END | disposition home or self-care (01) ==
LOC: CVS 09:02
PROVIDERS: PCP Family Medicine
DX: I31.39 Other pericardial effusion (noninflammatory) (principal); I35.0 Nonrheumatic aortic (valve) stenosis
CPT/HCPCS: 93306; Q9957; A4216; C8929

== ENCOUNTER 2023-10-18 18:50 | Emergency (ER) | payer MEDICARE, MEDICAID, SELFPAY ==
[2023-10-18 18:51] VITALS: BP 82/71; PULSE 77; RESP 16; TEMP 36.2; O2SAT 94; BMI 41.1
--- NOTE | 2023-10-18 19:12 | EX.ED.DYSGE1 ---
HPI History of Present Illness Chief Complaint: Hyperglycemia [facility] Medical History (Updated 10/18/23 @ 19:07 by Bette Moore) Stroke Carpal tunnel syndrome, bilateral LVH (left ventricular hypertrophy) Essential (primary) hypertension Diabetic neuropathy Degenerative disc disease Atherosclerotic heart disease of [place] coronary artery without angina pectoris Bipolar 1 disorder Bicuspid aortic valve Atrial septal defect and mitral stenosis Anxiety Hearing loss, left Chronic pain Pancreatitis GERD (gastroesophageal reflux disease) Smoker CPAP (continuous positive airway pressure) dependence Asthma Leaky heart valve MANISH (obstructive sleep apnea) Morbid obesity HLD (hyperlipidemia) Type II diabetes mellitus History of carpal tunnel syndrome COPD (chronic obstructive pulmonary disease) Home Medications ?Medication ?Instructions ?Recorded ?Last Taken ?Type atorvastatin 10 mg tablet 10 mg PO QHS cholesterol 11/03/16 06/21/23 History budesonide-formoterol HFA 80 2 puff inhalation BID lung disease 10/30/20 06/22/23 History mcg-4.5 mcg/actuation aerosol inhaler pantoprazole 40 mg tablet,delayed 40 mg PO DAILY reflux 10/30/20 06/22/23 History release acetaminophen 500 mg tablet 1,000 mg PO TID PRN Pain 10/18/21 Unknown History albuterol sulfate 90 mcg/actuation 1 - 2 puff inhalation Q4H PRN PRN 10/18/21 Unknown Rx aerosol inhaler (Ventolin HFA) Wheezing #8.5 grams insulin aspart U-100 100 unit/mL 2 unit subcut TID diabetes 10/14/22 06/22/23 History (3 mL) subcutaneous pen (Novolog FlexPen U-100 Insulin aspart) insulin glargine 100 unit/mL (3 12 unit subcut .QAM diabetes 10/14/22 06/22/23 History mL) subcutaneous pen pregabalin 100 mg capsule (Lyrica) 100 mg PO DAILY NEUROPATHY 10/14/22 06/22/23 History amlodipine 5 mg tablet 5 mg PO DAILY blood pressure 06/22/23 06/22/23 History apixaban 5 mg tablet (Eliquis) 5 mg PO BID blood thinner 06/22/23 06/22/23 History aspirin 81 mg tablet,delayed 81 mg PO DAILY heart health 06/22/23 06/22/23 History release (Adult Aspirin Regimen) bumetanide 1 mg tablet 2 mg PO BID edema 06/22/23 06/22/23 History docusate sodium 100 mg capsule 100 mg PO DAILY PRN constipation 06/22/23 Unknown History (Col-Rite) metoprolol tartrate 25 mg tablet 37.5 mg PO Q12H blood pressure / 06/22/23 06/22/23 History heart [id number]-dz-[id number] 300 mcg-K 60 1 tab PO DAILY supplement 06/22/23 06/22/23 History mcg-lycop 600 mcg-lutein 300 mcg tablet (Centrum Silver Men) ondansetron HCl 4 mg tablet 4 mg PO Q8H PRN PRN nausea and 06/22/23 06/22/23 History vomiting pregabalin 200 mg capsule 200 mg PO DAILY nerve pain 06/22/23 06/22/23 History tramadol 50 mg tablet 50 mg PO Q6H PRN pain 06/22/23 06/22/23 History trazodone 50 mg tablet 50 mg PO QHS sleep 06/22/23 06/21/23 History calcium carbonate 500 mg (2.5 x 200 mg calcium (500 06/24/23 Unknown Rx mg)) PO Q6H PRN PRN HEARTBURN #0 tabs Allergy/AdvReac Type Severity Reaction Status Date / Time Penicillins Allergy Hives Verified 10/18/23 18:53 fluticasone (From Flonase) AdvReac Severe Nose Bleeds Verified 10/18/23 18:53 lisinopril AdvReac Intermediate Upset Verified 10/18/23 18:53 Stomach NASAL SPRAY AdvReac Intermediate Chest Uncoded 10/09/22 14:22 tightness Family History Father Diabetes Dementia Mother CAD (coronary artery disease) CABG X4 Sister Diabetes Brother Ischemic heart disease Brother Myocardial infarction Surgical History History of back surgery Social History (Updated 06/22/23 @ 20:25 by Veronique Diez) household members: spouse housing: house Smoking Status: Current every day smoker tobacco type: cigarettes Tobacco: How many years used: 45 alcohol intake: current alcohol intake frequency: holidays/special occasions only substance use type: does not use EXAM Physical Exam Const Vital Signs: 10/18/23 18:51 10/18/23 19:06 10/18/23 19:27 Temperature 97.2 F L Temperature Source Temporal Pulse Rate 77 76 Respiratory Rate 16 18 Respiratory Effort Normal Blood Pressure 82/71 L 121/59 H Blood Pressure Mean 74 79 Pulse Ox 94 93 Oxygen Delivery Method Room Air Room Air 10/18/23 19:41 10/18/23 21:00 Temperature Temperature Source Pulse Rate 76 74 Respiratory Rate 17 16 Respiratory Effort Blood Pressure 117/60 148/78 H Blood Pressure Mean 79 101 Pulse Ox 93 95 Oxygen Delivery Method Room Air Room Air [facility] Narrative Medical decision making narrative: HISTORY OF PRESENT ILLNESS: 63-year-old male presents with concern for elevated blood sugar for the last 2 weeks. Notes increased urination and as well. Denies any fever, chills, vomiting. He does note a chronic cough. Denies history of DKA. Notes history of stroke in left with speech issues as well as right upper extremity weakness that is chronic. REVIEW OF SYSTEMS: Pertinent positives: Hyperglycemia, cough Pertinent negatives: As per HPI PHYSICAL EXAM: Nursing triage notes reviewed, Vital signs reviewed Constitutional: please see mdm HENT: MMM Eyes: Pupils equal round and reactive to light, Extraocular muscles intact Neck: No stridor, no JVD, full neck ROM Lungs: Clear to auscultation, No wheezing or rales. No increased work of breathing, no conversational dyspnea, no accessory muscle use, no nasal flaring. No respiratory distress noted Heart: Regular rate and rhythm, No murmurs, No rubs and No gallops, 2+ distal pulses (radial, femoral, posterior tibial) in all extremities Abdomen: Soft, there is no tenderness, rigidity, rebound or guarding, no obvious peritoneal signs, no palpable pulsatile abdominal masses, no auscultated abdominal bruit : No CVAT Extremities: No edema Neuro: At baseline, no new no focal neurological deficits, cranial nerves II through XII intact, 5/5 strength in left upper and bilateral lower extremities. Chronic weakness noted right upper extremity. Intact sensation to light touch in all extremities, 2+ reflexes bilateral patella tendons. No ataxia. Skin: No rash or lesions noted MEDICAL DECISION MAKING: Chief Complaint: Elevated blood sugar External records reviewed:. Patient was admitted in June 2023 for small bowel obstruction she has reviewed prior hospitalization Factors affecting care: Peripheral vascular disease, CVA, type 2 diabetes, GERD, COPD Social determinants of health: none History obtained from others: none Consults: none [facility] Narrative: The patient was initially hemodynamically stable, afebrile, nontoxic-appearing. Initial blood pressure documented 82/71 however when I evaluate the patient's blood pressure 125/71. I considered the following differential diagnosis: Hyperglycemia, dehydration, ALL IMAGES (IF OBTAINED) HAVE BEEN PERSONALLY REVIEWED AND INTERPRETED BY MYSELF. EKG with normal sinus pain, left axis deviation, normal intervals, no STEMI Chest x-ray was read reviewed personally by myself showed no evidence of obvious pneumonia. Radiologist read as bibasilar opacities concerning for pneumonia CBC with no leukocytosis, no anemia or thrombocytopenia BMP without evidence of significant electrolyte abnormalities, no anion gap, no acute kidney injury. VBG without evidence of DKA Lactate is wnl indicating no end-organ hypoperfusion and/or hypoxia. High-sensitivity troponin is negative, no evidence of myocardial ischemia Patient presented with hyperglycemia. There is no signs of DKA with signs of glucosuria and elevated blood sugar. This was treated with 5 units of IV insulin. Patient's blood sugar may have been exacerbated by underlying pneumonia he did complain of cough and did have signs of opacity on his chest x-ray although he did not have a white blood cell count, shortness of breath or hypoxia. He was treated with oral antibiotics. For home-going. Strict return precautions were discussed The patient and/or family, caregivers express understanding. The patient and/or family, caregivers agrees with the plan. Shared decision making: I will have a discussion with the patient and or visitors regarding risk/benefits of further testing or admission. They will be made aware of of the risk/benefits inherent in this decision they will be given the opportunity to voice understanding. Total critical care time today provided was at least 0 minutes. This excludes separately billable procedures. Critical care time (if documented) is secondary to the patient having high probability of clinically significant/life threatening deterioration in the patient's condition which required my urgent intervention. Impression: 1. Hyperglycemia 2. Community-acquired pneumonia 3. History of type 2 diabetes Dispo: Discharge home This note was generated with [email or web address] dictation software. It may contain incorrect words, spelling, and punctuation that were not noted in review of the chart prior to signing. Lab Data Labs: Laboratory Results - last 24 hr 10/18/23 10/18/23 10/18/23 19:14 19:36 20:26 WBC 10.1 RBC 4.85 Hgb 14.6 Hct 43.9 MCV 90.5 MCH 30.1 MCHC 33.3 RDW Std Deviation 41.2 RDW Coeff of David 12.4 Plt Count 229 MPV 11.2 Immature Gran % (Auto) 0.400 Neut % (Auto) 75.5 H Lymph % (Auto) 15.8 L [place] % (Auto) 7.8 Eos % (Auto) 0.1 Baso % (Auto) 0.4 Absolute Neuts (auto) 7.6 Absolute Lymphs (auto) 1.59 Nucleated RBC % 0 Sodium 137 Potassium 4.4 Chloride 101 Carbon Dioxide 31.0 Anion Gap 5 BUN 20 H Creatinine 1.04 Estim Creat Clear Calc 82.36 Est GFR (MDRD) Af Amer 93 Est GFR (MDRD) Non-Af 77 BUN/Creatinine Ratio 19.2 Glucose 419 H Lactic Acid 2.0 Calcium 9.1 Troponin I High Sens 6 Urine Color Yellow Urine Clarity Clear Urine pH 6.5 Ur Specific [place] 1.015 Urine Protein Negative Urine Glucose (UA) 1000 H Urine Ketones Negative Urine Occult Blood Negative Urine Nitrite Negative Urine Bilirubin Negative Urine Urobilinogen Normal Ur Leukocyte Esterase Negative Urine RBC 0 SEEN Urine WBC 0 SEEN Ur Squamous Epith Cells 0-5 SEEN Urine Bacteria 0 SEEN Urine Mucus 0 SEEN Acetone Level NEGATIVE POC Glucose 403 H Radiography Diagnostic Testing: Clinical Impression(s) from Imaging Studies Chest X-Ray 10/18/23 20:04 IMPRESSION: Patchy bibasilar pulmonary opacities may be atelectasis or pneumonia. Electronically Signed: Gera Delgado DO at 20:31 EDT , Discharge Plan Triage Chief Complaint: Hyperglycemia ED Provider: J Carlos Correia Dx/Rx/DC Orders Prescriptions: No Action insulin glargine 100 unit/mL (3 mL) insulin pen 12 unit subcut .QAM pregabalin [Lyrica] 100 mg capsule 100 mg PO DAILY atorvastatin 10 MG tablet 10 mg PO QHS budesonide-formoterol 80-4.5 mcg/actuation Hfa Aerosol Inhaler 2 puff INHALATION BID pantoprazole 40 mg Tablet,Delayed Release (Dr/Ec) 40 mg PO DAILY insulin aspart U-100 [Novolog FlexPen U-100 Insulin] 100 unit/mL (3 mL) insulin pen 2 unit SUBCUT TID Rx Instructions: 2 units per every 50 after 200 BG acetaminophen 500 MG tablet 1,000 mg PO TID PRN (Reason: Pain) albuterol sulfate [Ventolin HFA] 90 mcg/actuation HFA aerosol inhaler 1 - 2 puff inhalation Q4H PRN PRN (Reason: Wheezing) Qty: 8.5 0RF amlodipine 5 mg tablet 5 mg PO DAILY tramadol 50 mg tablet 50 mg PO Q6H PRN bumetanide 1 mg tablet 2 mg PO BID metoprolol tartrate 25 mg tablet 37.5 mg PO Q12H pregabalin 200 mg capsule 200 mg PO DAILY Eliquis 5 mg tablet 5 mg PO BID trazodone 50 mg tablet 50 mg PO QHS ondansetron HCl 4 mg tablet 4 mg PO Q8H PRN PRN (Reason: nausea and vomiting) aspirin [Adult Aspirin Regimen] 81 mg tablet,delayed release (DR/EC) 81 mg PO DAILY docusate sodium [Col-Rite] 100 mg capsule 100 mg PO DAILY PRN (Reason: constipation) Centrum Silver Men [id number] mcg tablet 1 tab PO DAILY calcium carbonate 200 mg calcium (500 mg) Tablet,Chewable 500 mg PO Q6H PRN PRN (Reason: HEARTBURN) Qty: 0 0RF Primary Care Provider: Juan Miguel Russell Referrals: Juan Miguel Russell MD [Primary Care Provider] - Print Language: Afghan
--- NOTE | 2023-10-18 19:25 | EKG12_ITS ---
Test Reason : Blood Pressure : / mmHG Vent. Rate : 075 BPM Atrial Rate : 075 BPM P-R Int : 162 ms QRS Dur : 076 ms QT Int : 394 ms P-R-T Axes : 039 -40 063 degrees QTc Int : 439 ms Normal sinus rhythm Left axis deviation Abnormal ECG Confirmed by AMY WEIR, CHUNG ([id number]), associate editor TONY MOE ([id number]) on 10/19/2023 1:51:14 PM Referred By: Confirmed By:CHUNG REYES MD
[2023-10-18 19:27] VITALS: BP 121/59; PULSE 76; RESP 18; O2SAT 93
[2023-10-18 19:33] LABS: Bedside Glucose 403 mg/dL (74-106)
[2023-10-18 19:41] VITALS: BP 117/60; PULSE 76; RESP 17; O2SAT 93
[2023-10-18] MEDS: 0.9% Normal Saline (1000mL) 1,000 ML 999 ML IV (19:44)
[2023-10-18 19:51] LABS: Absolute Lymphocyte Count 1.59 X10^3/uL (0.83-4.51); Absolute Neutrophil Count 7.6 X10^3/uL (2.0-7.7); Basophil# 0.04 X10^3/uL; Basophil% 0.4 % (0-1); Eosinophil# 0.01 X10^3/uL; Eosinophils% 0.1 % (0-5); Hematocrit 43.9 % (40-54); Hemoglobin 14.6 g/dL (13.0-16.5); Lymphocyte # 1.59 X10^3/ul (0.83-4.51); Lymphocyte % 15.8 % (19-41); Mean Corp Hgb Conc 33.3 g/dL (32-36); Mean Corpuscular Hgb 30.1 pg (27.0-32.0); Mean Corpuscular Volume 90.5 fL (80-94); Mean Platelet Vol. 11.2 fl (6.2-12.0); Monocyte# 0.79 X10^3/uL; Monocyte% 7.8 % (0-10); NRBC Flagged by Analyzer 0 % (0-5); Neutrophil # 7.61 X10^3/uL (2.7-7.7); Neutrophil % 75.5 % (47-70); Platelet Count 229 K/mm3 (150-450); RBC Distribution Width CV 12.4 % (11.6-14.6); RBC Distribution Width SD 41.2 fl (35.1-43.9); Red Blood Count 4.85 M/mm3 (4.6-6.2); White Blood Count 10.1 K/mm3 (4.4-11.0)
--- NOTE | 2023-10-18 20:04 | RAD_ITS ---
EXAM: XR CHEST, 1 VIEW CLINICAL INDICATION: Hyperglycemia TECHNIQUE: Frontal view of the chest. COMPARISON: 10/09/2022 chest radiograph and CTA chest FINDINGS: LUNGS AND PLEURAL SPACES: Patchy bibasilar pulmonary opacities may be atelectasis or pneumonia. No pneumothorax. No effusion. HEART: No significant abnormality. Cardiac silhouette not enlarged. MEDIASTINUM: Central airways and mediastinal contour are unremarkable. BONES/JOINTS: Median sternotomy. No acute fracture. SOFT TISSUES: No significant abnormality. RAD/Chest 1 View (Portable) IMPRESSION: Patchy bibasilar pulmonary opacities may be atelectasis or pneumonia. Electronically Signed: Gera Delgado DO at 20:31 EDT ,
[2023-10-18 20:10] LABS: Anion Gap 5 (5-15); BUN 20 mg/dL (7-18); BUN/Creat Ratio 19.2 RATIO (10-20); Calcium,Total 9.1 mg/dL (8.5-10.1); Chloride 101 mmol/L (98-107); Creatinine, Serum 1.04 mg/dL (0.70-1.30); EST Glomerular Filtration Rate 77 mL/min (>60); Est Glom Filt Rate - Afr Amer 93 mL/min (>60); Estimated Creatinine Clearance 82.36 ml/min; Glucose 419 mg/dL (74-106); Potassium 4.4 mmol/L (3.5-5.1); Sodium Level 137 mmol/L (136-145); Troponin-I HS 6 pg/mL (3.0-78.0)
[2023-10-18 20:30] LABS: Bacteria 0 SEEN /hpf (None Seen); Mucous, Urine 0 SEEN /hpf (<or=2+); Red Blood Cells-Urine 0 SEEN /hpf (0-5); White Blood Cells 0 SEEN /hpf (0-5)
[2023-10-18] MEDS: HYDROcodone Bitartrate/Apap 5/325 Tablet PO (20:56)
[2023-10-18 21:00] VITALS: BP 148/78; PULSE 74; RESP 16; O2SAT 95
[2023-10-18 21:10] LABS: Color, Urine Yellow (Yellow); Glucose, Dipstick 1000 mg/dl (Normal); Ketone-Dipstick Negative (Negative); Leukocyte Esterase-Dipstick Negative /ul (Negative); Nitrite-Dipstick Negative (Negative); Occult Blood-Urine Negative /ul (Negative); Protein-Dipstick Negative (Negative); Specific Gravity, Urine 1.015 (1.002-1.030); Urine Bilirubin Dipstick Negative (Negative); Urine Clarity Clear (Clear); Urine Urobilinogen Normal (Normal); Urine pH 6.5 (5.0 - 8.0)
[2023-10-18 21:24] LABS: Squamous Epithelial Cells - UA 0-5 SEEN /hpf (0-5)
[2023-10-18 22:05] LABS: Blood Gas Specimen Type VEN; O2 Delivery Device Not entered; SITE Not entered; VBG BASE EXCESS 7 mmol/L (-1.0-3.5); VBG Bicarbonate 32 mmol/L (22-26); VBG PO2 37 mmHg (25-40); VBG SO2 66 % (50-70); VBG TCO2 34 mmol/L (23-33); VBG pH 7.35 (7.32-7.42)
[2023-10-18] MEDS: Azithromycin 250 MG Tablet 500 MG PO (22:19)
[2023-10-18 22:23] VITALS: BP 126/80; PULSE 78; RESP 20; TEMP 36.8; O2SAT 95
[2023-10-18 22:44] LABS: Bedside Glucose 292 mg/dL (74-106)
[2023-10-18 22:44] LABS: Bedside Glucose 289 mg/dL (74-106)
[2023-10-18 23:46] LABS: Reflex Lactate? Y
== END 2023-10-18 22:35 | disposition home or self-care (01) ==
PROVIDERS: Emergency Provider Emergency Medicine; PCP Family Medicine; Visit Provider Emergency Medicine
DX: E11.65 Type 2 diabetes mellitus with hyperglycemia (principal); I69.331 Monoplegia of upper limb following cerebral infarction affecting right dominant side; J44.9 Chronic obstructive pulmonary disease, unspecified; E11.40 Type 2 diabetes mellitus with diabetic neuropathy, unspecified; E11.51 Type 2 diabetes mellitus with diabetic peripheral angiopathy without gangrene; E78.5 Hyperlipidemia, unspecified; I25.10 Atherosclerotic heart disease of native coronary artery without angina pectoris; F17.210 Nicotine dependence, cigarettes, uncomplicated; J18.9 Pneumonia, unspecified organism; K21.9 Gastro-esophageal reflux disease without esophagitis; I10 Essential (primary) hypertension; I69.328 Other speech and language deficits following cerebral infarction
CPT/HCPCS: 71045; 80048; 81001; 82009; 82803; 82962; 83605; 84484; 85025; 93005; 96360; 99284; A4216

== ENCOUNTER → 2024-06-20 | Outpatient (CLI) | payer MEDICARE, MEDICAID, SELFPAY ==
--- NOTE | 2024-06-20 10:57 | RAD_ITS ---
PROCEDURE: KNEE 1 OR 2 VIEWS 06/20/2024 REASON FOR EXAM: OA TECHNIQUE: AP and lateral view(s) of the right knee COMPARISON: Left knee x-ray performed on the same day. FINDINGS: No fracture or dislocation. No significant osteoarthritis. No suprapatellar joint effusion. Atheromatous calcification present within the arteries. RAD/Knee 1 or 2 Views IMPRESSION: No fracture or dislocation is seen within the right knee. Reading Location: [facility]
--- NOTE | 2024-06-20 10:57 | RAD_ITS ---
PROCEDURE: KNEE 1 OR 2 VIEWS REASON FOR EXAM: OA TECHNIQUE: AP and lateral view(s) of the left knee COMPARISON: Right knee x-ray performed on 06/20/2024. FINDINGS: Irregularity seen within the proximal metadiaphysis of the fibula bone seen on the lateral view. This is worrisome for minimally displaced fracture. No significant osteoarthritis. No suprapatellar joint effusion. Atheromatous disease calcification is present. RAD/Knee 1 or 2 Views IMPRESSION: Findings worrisome for minimally displaced fracture of the proximal fibula meta diaphysis under left side. Correlate clinically for site of pain. No significant osteoarthritis seen on the left side. Reading Location: [facility]
== END | disposition home or self-care (01) ==
LOC: RAD 10:55
PROVIDERS: PCP Family Medicine; Referring Provider Anesthesiology Pain Medicine; Visit Provider Anesthesiology Pain Medicine
DX: M17.0 Bilateral primary osteoarthritis of knee (principal)
CPT/HCPCS: 73560

== ENCOUNTER → 2024-07-24 | Outpatient (CLI) | payer MEDICARE, MEDICAID, SELFPAY ==
[2024-07-24 12:58] LABS: Amphetamine Urine NEGATIVE (<1000 ng/mL); Barbiturate Urine NEGATIVE (< 200 ng/mL); Benzodiazepine Urine NEGATIVE (< 200 ng/mL); Buprenorphine Urine NEGATIVE (< 200 ng/mL); Cocaine Urine NEGATIVE (< 300 ng/mL); Fentanyl, Urine NEGATIVE; Methadone Urine NEGATIVE (< 300 ng/mL); Opiates Urine NEGATIVE (< 300 ng/mL); Oxycodone, Urine NEGATIVE (< 100 ng/mL); PCP Urine NEGATIVE (< 25 ng/mL); THC Urine NEGATIVE (< 50 ng/mL)
== END | disposition home or self-care (01) ==
LOC: LAB 11:19
PROVIDERS: PCP Family Medicine; Referring Provider Anesthesiology Pain Medicine; Visit Provider Anesthesiology Pain Medicine
DX: F11.20 Opioid dependence, uncomplicated (principal)
CPT/HCPCS: 80307

== ENCOUNTER → 2024-08-21 | Outpatient (CLI) | payer MEDICARE, MEDICAID, SELFPAY ==
[2024-08-21 14:32] LABS: Barbiturate Urine NEGATIVE (< 200 ng/mL); Benzodiazepine Urine NEGATIVE (< 200 ng/mL); PCP Urine NEGATIVE (< 25 ng/mL); THC Urine NEGATIVE (< 50 ng/mL)
== END | disposition home or self-care (01) ==
PROVIDERS: PCP Family Medicine; Referring Provider Anesthesiology Pain Medicine; Visit Provider Anesthesiology Pain Medicine
DX: F11.20 Opioid dependence, uncomplicated (principal)
CPT/HCPCS: 80307

== ENCOUNTER 2024-12-15 17:38 | Inpatient (IN) | payer MEDICARE, MEDICAID, SELFPAY ==
[2024-12-15] VITALS (11 sets, daily range): BP systolic 113–151; BP diastolic 41–88; PULSE 73–91; RESP 16–27; TEMP 36.8–37.3; O2SAT 94–100; BMI 43.8
--- NOTE | 2024-12-15 18:22 | CT_ITS ---
PROCEDURE: ABDOMEN/PELVIS W IV CONT ONLY 12/15/2024 REASON FOR EXAM: RIGHT UPPER AND LOWER QUADRANT ABDOMINAL PAIN. TECHNIQUE: Procedure Code: [id number] Modality: CT Procedure: ABDOMEN/PELVIS W IV CONT ONLY Coronal and Sagittal reconstruction series were provided. CONTRAST: Not reported by the technologist One or more dose reduction techniques were used (e.g., Automated exposure control, adjustment of the mA and/or kV according to patient size, use of iterative reconstruction technique. RADIATION DOSE SUMMARY: CTDlvol: 24.1 mGy DLP: 1338 mGycm COMPARISON: Abdominal radiograph 06/24/2019 FINDINGS: Lung bases: Prosthetic aortic valve. Median sternotomy wires. Liver: Diffuse fatty infiltration. No discrete lesion. Gallbladder: Unremarkable Spleen: Unremarkable Pancreas: Unremarkable Adrenals: Unremarkable Kidneys: No hydronephrosis or stone. Simple cyst in the left kidney. Bladder: Collapsed, limiting evaluation Reproductive Organs: Unremarkable Bowel: No obstruction or wall thickening. Appendix: Normal caliber Lymph nodes: No suspicious lymph node enlargement. Vasculature: Diffuse atherosclerotic calcifications are noted. Peritoneum / Retroperitoneum: Pneumoperitoneum, predominantly at the mid to upper aspect of the anterior abdomen. There is stranding and air present in the mesentery near the transverse colon (sagittal image 72). Small volume of free fluid in the pelvis and right lower abdominal quadrant. Bones: Postoperative and degenerative changes of the spine. Soft tissues: There is a fat density lesion with peripheral rim which is isodense to muscle measuring 1.7 by 4.6 by 7.0 cm at the medial aspect of the right gluteal musculature (sagittal image 80). CT/Abdomen/Pelvis W IV Cont ONLY IMPRESSION: 1. Pneumoperitoneum, concerning for hollow viscus perforation, possibly of the stomach or transverse colon though source is not definitively identified. 2. Small volume of free fluid in the pelvis and right lower abdominal quadrant . 3. Fat density lesion near the medial aspect of the right gluteal musculature may represent a lipoma. Correlate with exam findings. Red Alert: Pneumoperitoneum The critical findings in the findings and impression above were relayed directl y by me by telephone to Josué Villalobos on 12/15/2024 at 7:49 pm with readback verification. Reading Location: [id number]
--- NOTE | 2024-12-15 18:25 | ED.VIS.GI ---
HPI HPI - GI History of Present Illness Chief Complaint: Abd Pain Informant: patient Abdominal Pain/Flank Pain Onset: Today Context: Gradual Onset Timing: Continuous Location: RUQ and RLQ Current Severity: Moderate Maximum Severity: Moderate Worsened by: Nothing Relieved by: Nothing Nausea/Vomiting/Emesis GI Symptom: Negative for Nausea or Vomiting Diarrhea/Melena/Hematochezia GI Symptom: Negative for Diarrhea, Melena or Hematochezia Associated Symptoms Associated Symptoms: Negative for Dysuria, Frequency, Hematuria or Urgency Narrative Narrative: 64-year-old male history of CAD, diabetes, COPD, open heart surgery in 2022 for valve. States today he is having right-sided abdominal pain both right upper and right lower quadrant going on for the last few hours. He denies nausea or vomiting. He denies fever or chills. Says he does have chronic constipation. Denies any dysuria. Also states he is short of breath. Denies any chest pain. No hemoptysis. He is on Eliquis. Prior similar symptoms: No Recent Illness/Hospitalization: No PFSH PFSH Medical History Stroke Carpal tunnel syndrome, bilateral LVH (left ventricular hypertrophy) Essential (primary) hypertension Diabetic neuropathy Degenerative disc disease Atherosclerotic heart disease of [place] coronary artery without angina pectoris Bipolar 1 disorder Bicuspid aortic valve Atrial septal defect and mitral stenosis Anxiety Hearing loss, left Chronic pain Pancreatitis GERD (gastroesophageal reflux disease) Smoker CPAP (continuous positive airway pressure) dependence Asthma Leaky heart valve MANISH (obstructive sleep apnea) Morbid obesity HLD (hyperlipidemia) Type II diabetes mellitus History of carpal tunnel syndrome COPD (chronic obstructive pulmonary disease) Home Medications ?Medication ?Instructions ?Recorded ?Last Taken ?Type atorvastatin 10 mg tablet 10 mg PO QHS cholesterol 11/03/16 06/21/23 History budesonide-formoterol HFA 80 2 puff inhalation BID lung disease 10/30/20 06/22/23 History mcg-4.5 mcg/actuation aerosol inhaler pantoprazole 40 mg tablet,delayed 40 mg PO DAILY reflux 10/30/20 06/22/23 History release acetaminophen 500 mg tablet 1,000 mg PO TID PRN Pain 10/18/21 Unknown History albuterol sulfate 90 mcg/actuation 1 - 2 puff inhalation Q4H PRN PRN 09/05/22 Unknown Rx aerosol inhaler (Ventolin HFA) Wheezing #8.5 grams insulin aspart U-100 100 unit/mL 2 unit subcut TID diabetes 10/14/22 06/22/23 History (3 mL) subcutaneous pen (Novolog FlexPen U-100 Insulin aspart) insulin glargine 100 unit/mL (3 12 unit subcut .QAM diabetes 10/14/22 06/22/23 History mL) subcutaneous pen pregabalin 100 mg capsule (Lyrica) 100 mg PO DAILY NEUROPATHY 10/14/22 06/22/23 History amlodipine 5 mg tablet 5 mg PO DAILY blood pressure 06/22/23 06/22/23 History apixaban 5 mg tablet (Eliquis) 5 mg PO BID blood thinner 06/22/23 06/22/23 History aspirin 81 mg tablet,delayed 81 mg PO DAILY heart health 06/22/23 06/22/23 History release (Adult Aspirin Regimen) bumetanide 1 mg tablet 2 mg PO BID edema 06/22/23 06/22/23 History docusate sodium 100 mg capsule 100 mg PO DAILY PRN constipation 06/22/23 Unknown History (Col-Rite) metoprolol tartrate 25 mg tablet 37.5 mg PO Q12H blood pressure / 06/22/23 06/22/23 History heart [id number] 300 mcg-K 60 1 tab PO DAILY supplement 06/22/23 06/22/23 History mcg-lycop 600 mcg-lutein 300 mcg tablet (Centrum Silver Men) ondansetron HCl 4 mg tablet 4 mg PO Q8H PRN PRN nausea and 06/22/23 06/22/23 History vomiting pregabalin 200 mg capsule 200 mg PO DAILY nerve pain 06/22/23 06/22/23 History tramadol 50 mg tablet 50 mg PO Q6H PRN pain 06/22/23 06/22/23 History trazodone 50 mg tablet 50 mg PO QHS sleep 06/22/23 06/21/23 History calcium carbonate 500 mg (2.5 x 200 mg calcium (500 06/24/23 Unknown Rx mg)) PO Q6H PRN PRN HEARTBURN #0 tabs azithromycin 500 mg tablet 500 mg PO DAILY 5 days #5 tabs 10/18/23 Unknown Rx Allergy/AdvReac Type Severity Reaction Status Date / Time Penicillins Allergy Hives Verified 12/15/24 17:40 fluticasone (From Flonase) AdvReac Severe Nose Bleeds Verified 12/15/24 17:40 lisinopril AdvReac Intermediate Upset Verified 12/15/24 17:40 Stomach NASAL SPRAY AdvReac Intermediate Chest Uncoded 10/09/22 14:22 tightness Family History Father Diabetes Dementia Mother CAD (coronary artery disease) CABG X4 Sister Diabetes Brother Ischemic heart disease Brother Myocardial infarction Surgical History History of back surgery Social History household members: spouse housing: house Smoking Status: Current every day smoker tobacco type: cigarettes Tobacco: How many years used: 45 alcohol intake: current alcohol intake frequency: holidays/special occasions only substance use type: does not use ROS ROS ED ROS Narrative Abdominal pain. Denies fever. Denies vomiting or diarrhea. Mild constipation. Also shortness of breath without chest pain. Constitutional Constitutional ED: Denies chills or fever(s) ENT ENT ED: Denies ear pain Cardiovascular Cardiovascular: Denies chest pain Respiratory/Chest Respiratory/Chest: Reports dyspnea; Denies cough Gastrointestinal Gastrointestinal: Reports abdominal pain and constipation; Denies diarrhea, melena, nausea or vomiting Genitourinary Genitourinary ED: Denies dysuria or hematuria Musculoskeletal Musculoskeletal: Denies arthralgias Integumentary Denies abscess Neurologic Neurologic: Denies headache(s) Psychiatric Psychiatric: Denies anxiety Endocrine Endocrinology: Denies polydipsia or polyphagia Hematologic/Lymphatic Hematologic/Lymphatic: Reports other Details: On blood thinner Eliquis. ; Denies lymphadenopathy Allergic/Immunologic Allergic/Immunologic ED: Denies mouth swelling or tongue swelling EXAM Physical Exam Narrative Exam Narrative: 64-year-old male sitting upright in bed. Vital signs are stable afebrile. Pulse ox 95% on room air no hypoxia. H EENT exam pupils round react light. Moist mucous membranes. Neck nontender no JVD. No lymphadenopathy. Back nontender. Lungs clear to auscultation bilaterally. Heart regular rhythm rate about 70 no murmur. Chest wall ribs nontender. Abdomen obese. Both right upper and right lower quadrant tenderness. No Boswell sign. No peritoneal signs. No hernia or mass. No obstruction. Left upper left lower quadrant unremarkable. No bruising. No pulsatile mass. Moving all 4 extremities. 1+ pitting edema both lower extremities. He has weakness in both the right arm and leg from a prior stroke. He has some movement but it is much weaker than the left side. Neurologically he is awake alert. Answering questions following commands. Right-sided weakness from the prior stroke. Const Vital Signs: 12/15/24 17:40 12/15/24 18:35 12/15/24 18:39 Temperature 98.2 F Temperature Source Temporal Pulse Rate 73 80 91 Respiratory Rate 26 H 24 H 27 H Respiratory Pattern Tachypnea Blood Pressure 125/67 H 151/72 H Blood Pressure Mean 86 98 Pulse Ox 95 100 Oxygen Delivery Method Room Air Room Air Oxygen Flow Rate (L/min) 12/15/24 19:00 12/15/24 19:02 Temperature Temperature Source Pulse Rate 79 Respiratory Rate 20 H Respiratory Pattern Blood Pressure 129/88 H Blood Pressure Mean 101 Pulse Ox 96 98 Oxygen Delivery Method Nasal Cannula Oxygen Flow Rate (L/min) 4 MDM MDM MDM Narrative Medical decision making narrative: 64-year-old male complaining of right side abdominal pain gallbladder and appendix are both in differential along with other etiologies. CAT scan and labs to be obtained. Will give morphine for pain. Also he is having shortness of breath undergo cardiac workup. He is on a blood thinner I do not think it is a PE. Repeat exam patient still having abdominal pain. He does guard. He did have improved with the morphine and the second dose of morphine. CAT scan shows free air consistent with perforation. Unsure of exactly where the perforation came from per the radiologist. Will be started on IV Cipro and Flagyl. Have already spoke to general surgery on-call who is evaluate his CAT scan at this time. History & Record Review Discussion w/independent historian: Patient Additional record(s) reviewed:: Prior outpatient record, Prior ED visit and Prior labs Lab Data Attestation: I reviewed the patient's lab results. Lab results narrative: CBC shows a white count of 14. H&H 18 and 53. Platelets 234. Electrolytes show a gap of 15. BUN and creatinine of 20 and 0.9. Glucose 259. Liver enzymes are unremarkable. Lipase is 12. Troponin is 15. BNP is 120. UA is negative. CAT scan shows free air consistent with a perforation. Labs: Laboratory Results - last 24 hr 12/15/24 12/15/24 17:53 19:20 WBC 14.0 H RBC 6.06 Hgb 18.3 H* Hct 53.1 MCV 87.6 MCH 30.2 MCHC 34.5 RDW Std Deviation 41.0 RDW Coeff of David 12.8 Plt Count 234 MPV 12.2 H Immature Gran % (Auto) 0.300 Neut % (Auto) 82.4 H Lymph % (Auto) 12.0 L [place] % (Auto) 4.6 Eos % (Auto) 0.2 Baso % (Auto) 0.5 Absolute Neuts (auto) 11.5 H Absolute Lymphs (auto) 1.68 Nucleated RBC % 0 Sodium 136 Potassium 3.9 Chloride 97 L Carbon Dioxide 24.9 Anion Gap 15 BUN 20 H Creatinine 0.93 Estim Creat Clear Calc 94.11 Est GFR (MDRD) Non-Af 93 BUN/Creatinine Ratio 21.1 H Glucose 259 H Calcium 9.5 Total Bilirubin 0.52 AST 19 ALT 11 Alkaline Phosphatase 112 Troponin T High Sens 15 NT pro BNP II 120 Total Protein 7.1 Albumin 4.1 Globulin 2.9 Albumin/Globulin Ratio 1.4 Lipase 12 L Urine Color Yellow Urine Clarity Clear Urine pH 6.0 Ur Specific Hart 1.020 Urine Protein 30 H Urine Glucose (UA) Normal Urine Ketones Negative Urine Occult Blood 10 H Urine Nitrite Negative Urine Bilirubin Negative Urine Urobilinogen 1 H Ur Leukocyte Esterase 100 H Urine RBC 0 SEEN Urine WBC 0-5 SEEN Ur Squamous Epith Cells 0 SEEN Urine Bacteria 0 SEEN Urine Mucus 1+ Radiography Chest X-Ray - ED: 2 View, Read by ED Physician, Lungs, Mediastinum, Bony Structures, Chronic Changes and Cardiomegaly Diagnostic Testing: Chest x-ray, 2 views AP and lateral ordered interpreted by myself shows a prior sternotomy. Sternal wires. Borderline cardiomegaly. Lungs no acute abnormality. Chronic changes. There appears to be free air under the right hemidiaphragm consistent with his CAT scan. Rhythm Strip Rhythm Strip: Sinus Rhythm Rate: 76 Ectopy: None EKG Initial EKG: Attestation: I personally reviewed and interpreted this EKG as follows: Interpretation: Sinus Rhythm and No Acute Injury Pattern Comments: Normal sinus rhythm rate of 76 no acute signs of MT or ischemia. Critical Care Time Critical Care Time: Yes Critical care time (excluding procedures): 30-74 minutes, Including time spent:, Discussing w/Patient &/or Family/[employer] Worker, Discussing w/Consultants, Arranging Admission or Transfer, Performing Direct Patient Care at Bedside and - (35 minutes.) Discharge Plan Dx/Rx/DC Orders Clinical Impression: Abdominal pain, Perforated abdominal viscus, History of diabetes mellitus, Chronic anticoagulation, COPD (chronic obstructive pulmonary disease) Disposition Disposition: Acute Care Hospital [facility]
--- OUTSIDE RECORDS SUMMARY | 2024-12-15 18:31 | XMS RPT_ITS | CCD ---
Author Organization [facility] Care Team Providers Care Rn Rehabilitation Name Role Phone Alyson Arthur MD Primary Care Provider Dr. Alyson Arthur Primary Care Provider Dr. Bruce Mc Attending Provider Dr. Juaquin Spear Emergency Provider Dr. Shanna Govea Admit Provider Dr. Shanna Govea Attending Provider Dr. Shanna Govea Other Provider Alyson Arthur MD Primary Care Provider Leodan WEIR, Shlomo Lucero Unavailable Benjamin Pike MD Unavailable Kiel Barnes MD Unavailable ALYSON ARTHUR MD Primary Care Physician Alyson Arthur MD Primary Care Provider Dr. Alyson Arthur Primary Care Provider Dr. Carmen Matthews Emergency Provider Dr. Raj Stevenson Attending Provider [phone] Dr. Patrick Sharma Admit Provider Dr. Patrick Sharma Referring Provider [phone] Dr. Patrick Sharma Other Provider Dr. Trip Fraire Other Provider Dr. Madhu Smith Other Provider Dr. Trip Fraire Attending Provider Dr. Raj Stevenson Other Provider Dr. Kiel Chacon Attending Provider [phone] JERSON WEIR, ALYSON Primary Care Unavailable BRAYAN AGUILERA, BENJAMIN Consulting Unavailable SCHEATZLE DO, MALIA Admitting Unavailable SCHEATZLE DO, MALIA Attending Unavailable MARRY TECHNICAL ACCOUNT REPRESENTATIVE-GUEST HISTORY CLERK, DERECK Chavez Consulting Unavaila blanco SINGH DPM, DR ALLISON Bliss Consulting Unatoyin SARAH MD, DR STOUT Consulting Unavailab jenn ARTHUR MD, ALYSON Primary Care Unavailable BRAYAN DO, BENJAMIN Consulting Unavailable SCHEATZLE DO, MALIA Admitting Unavailable SCHEATZLE DO, MALIA Attending Unavailable TUTTLE TECHNICAL ACCOUNT REPRESENTATIVE-GUEST HISTORY CLERK, DERECK Chavez Consulting Unavaillily BAEZA PhD, EITAN Bautista Consulting Unavailable SAMANTHA DPScott, DR ALLISON Bliss Consulting Elio PATRICK MD, JHOAN Consulting Unavailable JERSON WEIR, ALYSON Primary Care Unavailable BRIANA AGUILERA, ALYSON Admitting Unavailable BRIANA AGUILERA, ALYSON Attending Unavailable ALAN WEIR, GERMAN Consulting Unavailable JERSON WEIR, ALYSON Attending Unavailable JERSON WEIR, ALYSON Primary Care Unavailable Haagen TECHNICAL ACCOUNT REPRESENTATIVE.GUEST HISTORY CLERK, Angela Unavailable Suppan TECHNICAL ACCOUNT REPRESENTATIVE.GUEST HISTORY CLERK, Margi A Unavailable Suppan TECHNICAL ACCOUNT REPRESENTATIVE.GUEST HISTORY CLERK, Margi A Unavailable BRIANA AGUILERA, ALYSON Attending Unavailable JERSON WEIR, ALYSON Primary Care Unavailable DARNELL WEIR, JHOAN Consulting Unavailable BRIANA AGUILERA, ALYSON Admitting Unavailable ALAN WEIR, GERMAN Consulting Unavailable Suppan TECHNICAL ACCOUNT REPRESENTATIVE.GUEST HISTORY CLERK, Margi A Unavailable [phone] Dr. Alyson Arthur MD Primary Care Provider Dr. Walter Sellers MD Attending Provider Dr. Walter Sellers MD Referring Provider Walter Sellers Attending Unavailable Walter Sellers Referring Unavailable Alyson Arthur Primary Care Unavailable Walter Sellers Attending Unavailable Walter Sellers Referring Unavailable Alyson Arthur Primary Care Unavailable Jerson, Alyson Primary Care Unavailable J Carlos Correia Attending Unavailable Walter Sellers Referring Unavailable Alyson Arthur Primary Care Unavailable Walter Sellers Attending Unavailable JERSON, ALYSON Brewer Primary Care Unavailable ANGELA SCHMID Referring Unavailable ANGELA SCHMID Attending Unavailable JERSON, ALYSON Daniella Primary Care Unavailable JERSON, ALYSON Brewer Primary Care Unavailable MARGI RIDDLE Referring Unavailable JERSON, ALYSON Brewer Primary Care Unavailable MARGI RIDDLE Attending Unavailable ALYSON ARTHUR Primary Care Unavailable ANGELA SCHMID Referring Unavailable JERSON, ALYSON Daniella Primary Care Unavailable ANGELA SCHMID Referring Unavailable FRANKLIN ESPINAL Attending Unavailable ANGELA SCHMID Referring Unavailable ALYSON ARTHUR Primary Care Unavailable TONY MAJANO Referring Unavailable JERSON, ALYSON Brewer Primary Care Unavailable AMAURI JO Attending Unavailable JERSON, ALYSON Primary Care Unavailable TONY MAJANO Referring Unavailable Allergies Allergy Classification Reported Allergen(s) Allergy Type Date of Onset Reaction(s) Facility Angiotensin Converting Enzyme (ESTEFANI) Inhibitors (1 source) Lisinopril Drug Allergy 8 Other: See Comments [facility] Corticosteroids (1 source) fluticasone Drug Allergy 2 Other: See Comments [facility] Penicillins (antibiotic) (1 source) Penicillins Drug Allergy 1 [facility] (20 sources) Lisinopril; Translations: [LISINOPRIL] Drug Allergy 8 Other: See [facility] Work Phone: (13 sources) Penicillins; Translations: [penicillins] Drug Allergy 1 [facility] Work Phone: (20 sources) Penicillins Drug Allergy 1 [facility] Work Phone: (10 sources) Penicillins Allergy to substance 2 [facility] (20 sources) fluticasone; Translations: [FLUTICASONE PROPIONATE] Drug Allergy 2 Other: See Comments [facility] (8 sources) NASAL SPRAY; Translations: [NASAL SPRAY] Propensity to adverse reactions 3 Chest tightness [facility] (20 sources) Iodinated Contrast Media; Translations: [IODINATED CONTRAST MEDIA] Drug Allergy 4 GI Upset, Other: See Comments [facility] (8 sources) fluticasone; Translations: [fluticasone nasal] Drug Allergy 4 Nosebleed, Nose Bleeds [facility] (18 sources) Penicillins Drug Allergy 1 Rash [facility] (1 source) fluticasone Drug Allergy 4 [facility] (1 source) Lisinopril Drug Allergy 4 [facility] (1 source) Penicillins Drug allergy (disorder) 4 [facility] Medications Current Medications Medication Drug Class(es) Dates Sig (Normalized) Sig (Original) 8 hr acetaminophen 650 mg extended release oral tablet (20 sources) Start: 04-23-2023 acetaminophen 650 mg oral tablet, extended release Dose : 650 mg = 1 tab(s), Oral, BID, PRN as needed for pain Start Date: 04/23/23 Status: Ordered Start: 04-07-2023 take 650 mg enteral route every four hours as needed acetaminophen (TYLENOL) 650 mg/20.3 mL soln 20.3 mL by ORAL/FEEDING TUBE route every 4 hours as needed for pain. Do not exceed 5 doses in 24 hours. 04/07/2023 Active Start: 11-23-2013 End: 10-18-2021 take 2 tablets by mouth three times daily as needed for pain Acetaminophen 500 MG tablet Active 1000 mg PO THREE TIMES A DAY as needed for Pain October 18, 2021 1:22pm Start: 11-23-2013 End: 10-18-2021 take 1000 mg by mouth three times daily Acetaminophen Active 1000 MG PO THREE TIMES A DAY October 18, 2021 1:22pm Comment on above: 20.3 mL by ORAL/FEED ING TUBE route every 4 hours as needed for pain. Do not exceed 5 doses in 24 hours. [id number] 200 actuat albuterol 0.09 mg/actuat metered dose inhaler (20 sources) beta2-Adrenergic Agonist Start: 10-18-2021 Albuterol Sulfate (Ventolin Hfa) 90 mcg/actuation HFA aerosol inhaler Active 1 - 2 NMA INHALATION EVERY 4 HOURS NEEDED as needed for Wheezing 8.5 0 October 18, 2021 12:00am Start: 10-18-2021 take 1 puff(s) by in halation every four hours as needed Albuterol Sulfate (Ventolin Hfa) 90 mcg/actuation HFA aerosol inhaler Active 1 - 2 PUFF INHALATION EVERY 4 HOURS NEEDED 8.5 October 18, 2021 12:00am Start: 01-04-2021 End: 08-07-2024 take 2 puff(s) by inhalation every four hours as needed for wheezing albuterol HFA (PROVENTIL HFA, VENTOLIN HFA) 90 mcg/actuation inhaler Inhale 2 puffs as instructed every 4 hours as needed for wheezing/shortness of breath. 1 each 3 08/07/2024 Active Comment on above: Inhale 2 Puffs as in structed every 4 hours as needed for wheezing/shortness of breath. albuterol 0.833 mg/ml / ipratropium bromide 0.167 mg/ml inhalation solution (20 sources) Anticholinergic, beta2-Adrenergic Agonist Start: 04-07-2023 DuoNeb Dose = 3 mL, Nebulized, QID, 0 Refill(s) Start Date: 04/07/23 Status: Ordered Start: 04-07-2023 End: 02-07-2025 take 3 mL by inhalation four times daily ipratropium-albuterol (DUONEB) 0.5 mg-3 mg(2.5 mg base)/3 mL nebu Inhale 3 mL as instructed four times daily. 360 mL 11 02/08/2024 02/07/2025 Active Comment on above: Inhale 3 mL as instr ucted four times daily. albuterol MDI (90 mcg/inh) CFC free inhalation aerosol (3 sources) Start: take 2 puff(s) by inhalation every four hours as needed for wheezing albuterol MDI (90 mcg/inh) CFC free inhalation aerosol 2 puff(s), Inhalation, q4h, PRN as needed for wheezing, # 8 gram(s), 0 Refill(s), Pharmacy: [facility], 155, cm, 04/27/23 19:46:00 EDT, Height, kg, 05/17/23 5:15:00 EDT, Dosing Weight Start Date: 05/19/23 Status: Ordered Start: 04-07-2023 take 2 puff(s) by in halation every four hours as needed for wheezing albuterol MDI (90 mcg/inh) CFC free inhalation aerosol 2 puff(s), Inhalation, q4h, PRN as needed for wheezing, # 8.5 gram(s), 0 Refill(s) Start Date: 04/07/23 Status: Ordered amLODIPine 5 mg oral tablet (20 sources) Dihydropyridine Calcium Channel Maren Start: 05-22-2023 End: 02-07-2025 take 1 tablet by mouth once daily amLODIPine (NORVASC) 5 mg tablet Indications: Primary hypertension Take 1 tablet by mouth once daily. 90 tablet 3 02/08/2024 02/07/2025 Active Start: 05-19-2023 amLODIPine 5 m g oral tablet Dose : 5 mg = 1 tab(s), Nasogastric, qDay, # 30 tab(s), 0 Refill(s), Pharmacy: [facility], 155, cm, 04/27/23 19:46:00 EDT, Height, kg, 05/17/23 5:15:00 EDT, Dosing Weight Start Date: 05/19/23 Status: Ordered Start: 04-07-2023 amLODIPine 5 m g oral tablet Dose : 5 mg = 1 tab(s), Nasogastric, qDay, # 30 tab(s), 0 Refill(s) Start Date: 04/07/23 Status: Ordered Start: 04-07-2023 End: 05-22-2023 amLODIPine (NORVASC) 5 mg ta blet 1 tablet by CORPAK route once daily. 0 04/07/2023 05/22/2023 Discontinued Comment on above: 1 tablet by CORPAK r oute once daily. Take 1 tablet by cristina th once daily. apixaban 5 mg oral tablet (20 sources) Factor Xa Inhibitor Start: 05-24-2023 End: 05-01-2025 take 1 tablet by mouth twice daily apixaban (ELIQUIS) 5 mg tab(s) Indications: Paroxysmal atrial fibrillation (HCC) Take 1 tablet by mouth two times a day. 60 tablet 11 05/01/2024 05/01/2025 Active Start: 05-19-2023 apixaban 5 mg oral tablet Dose : 5 mg = 1 tab(s), Oral, BID, # 60 tab(s), 2 Refill(s), Pharmacy: [facility], 155, cm, 04/27/23 19:46:00 EDT, Height, 118, kg, 05/17/23 5:15:00 EDT, Dosing Weight Start Date: 05/19/23 Status: Ordered Start: 04-27-2023 apixaban 5 mg oral tablet Dose : 5 mg = 1 tab(s), Oral, BID, # 60 tab(s), 2 Refill(s), Pharmacy: [facility], 155, cm, 04/23/23 12:45:00 EDT, Height, 123.3, kg, 04/23/23 12:45:00 EDT, Dosing Weight Start Date: 04/27/23 Status: Ordered Comment on above: Take 1 tablet by cristina th two times a day. aspirin 81 mg delayed release oral tablet (20 sources) Platelet Aggregation Inhibitor, Nonsteroidal Anti-inflammatory Drug Start: 06-22-2023 take 1 tablet by mouth once daily Aspirin (Adult Aspirin Regimen) 81 mg tablet,delayed release (DR/EC) Active 81 mg PO DAILY June 22, 2023 12:00am [employer] Start: 04-07-2023 aspirin 81 mg oral tablet, chewable Dose : 81 mg = 1 tab(s), Nasogastric, Daily, 0 Refill(s) Start Date: 04/07/23 Status: Ordered Start: 04-07-2023 aspirin 81 mg chewable tablet 1 tablet by CORPAK route once daily. 04/07/2023 Active take 1 tablet by mouth once aspi rin 325 mg tablet Take 325 mg by mouth one time only. 0 Suspended Comment on above: Take 325 mg by mouth one time only. 1 tablet by CORPAK r oute once daily. atorvastatin 10 mg oral tablet (20 sources) HMG-CoA Reductase Inhibitor Start: 4 End: take 1 tablet by mouth once daily at bedtime atorvastatin (LIPITOR) 10 mg tablet 1 tablet by ORAL/FEEDING TUBE route daily at bedtime. 0 04/07/2023 05/22/2023 Discontinued Start: 11-03-2016 End: 02-07-2025 take 1 tablet by mouth once daily at bedtime atorvastatin (LIPITOR) 10 mg tablet Indications: Type 2 diabetes mellitus with hyperglycemia, with long-term current use of insulin (HCC) , Arterial ischemic stroke, MCA (middle cerebral artery), left, acute (HCC) , Dilatation of aorta Take 1 tablet by mouth daily at bedtime. 90 tablet 3 02/08/2024 02/07/2025 Active Comment on above: TAKE 1 TABLET BY CRISTINA TH AT BEDTIME *FOR CHOLESTEROL 1 tablet by ORAL/FEE DING TUBE route daily at bedtime. Take 1 tablet by cristina th daily at bedtime. azithromycin 500 mg oral tablet (3 sources) Macrolide Antimicrobial Start: 10-18-19 take 1 tablet by mouth once daily Azithromycin 500 mg tablet Active 500 mg PO DAILY 5 5 0 October 18, 2023 12:00am Budesonide / formoterol (20 sources) Corticosteroid, beta2-Adrenergic Agonist Start: 02-08-20 End: 02-08-20 25 take 2 puff(s) by inhalation twice daily budesonide-formoter ol (SYMBICORT) 80-4.5 mcg/actuation inhaler Indications: Chronic obstructive pulmonary disease, unspecified COPD type (HCC) , Dyspnea, unspecified type Inhale 2 Puffs as instructed two times a day. 3 Each 3 02/08/2024 02/07/2025 Active Start: 12-09-2022 End: 02-08-2024 take 2 puff(s) by inhalation twice daily budesonide-formoterol (SYMBICORT) 80-4.5 mcg/actuation inhaler Indications: Dyspnea, unspecified type , Chronic obstructive pulmonary disease, unspecified COPD type (HCC) Inhale 2 Puffs as instructed two times a day. 1 Each 3 12/09/2022 02/08/2024 Discontinued Start: 12-09-2022 take 2 puff(s) by in halation twice daily budesonide-formoterol (SYMBICORT) 80-4.5 mcg/actuation inhaler Indications: Dyspnea, unspecified type , Chronic obstructive pulmonary disease, unspecified COPD type (HCC) Inhale 2 Puffs as instructed two times a day. 1 Each 3 12/09/2022 Suspended Start: 12-09-2022 take 2 puff(s) by in halation twice daily budesonide-formoterol (SYMBICORT) 80-4.5 mcg/actuation inhaler Indications: Dyspnea, unspecified type , Chronic obstructive pulmonary disease, unspecified COPD type (HCC) Inhale 2 Puffs as instructed two times a day. 1 Each 3 12/09/2022 Active Start: 08-12-2022 End: 12-09-2022 take 2 puff(s) by inhalation twice daily budesonide-formoterol (SYMBICORT) 80-4.5 mcg/actuation inhaler Indications: Dyspnea, unspecified type , Chronic obstructive pulmonary disease, unspecified COPD type (HCC) Inhale 2 Puffs as instructed twice daily. 1 Each 3 08/12/2022 12/09/2022 Discontinued Start: 08-12-2022 take 2 puff(s) by in halation twice daily budesonide-formoterol (SYMBICORT) 80-4.5 mcg/actuation inhaler Indications: Dyspnea, unspecified type , Chronic obstructive pulmonary disease, unspecified COPD type (HCC) Inhale 2 Puffs as instructed twice daily. 1 Each 3 08/12/2022 Active Start: 04-28-2022 End: 08-12-2022 take 2 puff(s) by inhalation twice daily budesonide-formoterol (SYMBICORT) 80-4.5 mcg/actuation inhaler Indications: Dyspnea, unspecified type , Chronic obstructive pulmonary disease, unspecified COPD type (HCC) Inhale 2 Puffs as instructed twice daily. 1 Each 3 04/28/2022 08/12/2022 Discontinued Start: 04-28-2022 take 2 puff(s) by in halation twice daily budesonide-formoterol (SYMBICORT) 80-4.5 mcg/actuation inhaler Indications: Dyspnea, unspecified type , Chronic obstructive pulmonary disease, unspecified COPD type (HCC) Inhale 2 Puffs as instructed twice daily. 1 Each 3 04/28/2022 Active Start: 05-28-2021 take 2 puff(s) by in halation twice daily budesonide-formoterol (SYMBICORT) 80-4.5 mcg/actuation inhaler Indications: Dyspnea, unspecified type , Chronic obstructive pulmonary disease, unspecified COPD type (HCC) Inhale 2 Puffs as instructed twice daily. 1 Inhaler 11 05/28/2021 Active Start: 10-30-2020 take 1 puff(s) by in halation twice daily Budesonide-Formoterol Active 2 PUFF INHALATION TWICE A DAY October 30, 2020 8:46pm Start: 10-30-2020 Budesonide-For moterol 80-4.5 mcg/actuation Hfa Aerosol Inhaler Active 2 NMA INHALATION TWICE A DAY October 30, 2020 12:00am lung disease Start: 10-30-2020 Budesonide-For moterol 80-4.5 mcg/actuation Hfa Aerosol Inhaler Active 2 NMA INHALATION TWICE A DAY October 30, 2020 12:00am Start: 10-30-2020 take 1 puff(s) by in halation twice daily Budesonide-Formoterol Active 2 PUFF INHALATION TWICE A DAY October 29, 2020 11:00pm Start: 10-30-2020 take 1 puff(s) by in halation twice daily Budesonide-Formoterol Active 2 PUFF INHALATION TWICE A DAY October 30, 2020 12:00am Start: 07-01-2020 End: 05-28-2021 take 2 puff(s) by inhalation twice daily budesonide-formoterol (SYMBICORT) 80-4.5 mcg/actuation inhaler Indications: Dyspnea, unspecified type , Chronic obstructive pulmonary disease, unspecified COPD type (HCC) Inhale 2 Puffs as instructed twice daily. 1 Inhaler 11 07/01/2020 05/28/2021 Discontinued Start: 04-09-2020 End: 05-06-2020 take 2 puff(s) by inhalation twice daily budesonide-formoterol (SYMBICORT) 80-4.5 mcg/actuation inhaler Indications: Dyspnea, unspecified type , Chronic obstructive pulmonary disease, unspecified COPD type (HCC) Inhale 2 Puffs as instructed twice daily. 1 Inhaler 04/09/2020 05/06/2020 Discontinued Comment on above: Inhale 2 Puffs as in structed twice daily. Inhale 2 Puffs as in structed two times a day. bumetanide 1 mg oral tablet (20 sources) Loop Diuretic Start: 06-22-2023 take 1 tablet by mouth twice daily Bumetanide 1 mg tablet Active 2 mg PO TWICE A DAY June 22, 2023 12:00am edema Start: 06-22-2023 take 2 mg by mouth twice daily Bumetanide Active 2 MG PO TWICE A DAY June 22, 2023 12:00am Start: 05-22-2023 End: 02-15-2025 take 2 tablets by mouth twice daily bumetanide (BUMEX) 1 mg tablet Indications: Primary hypertension Take 2 tablets by mouth two times a day. 360 tablet 1 08/19/2024 02/15/2025 Active Start: 05-19-2023 bumetanide 1 m g oral tablet Dose : 2 mg = 2 tab(s), Oral, BID, # 120 tab(s), 0 Refill(s), Pharmacy: [facility], 155, cm, 04/27/23 19:46:00 EDT, Height, kg, 05/17/23 5:15:00 EDT, Dosing Weight Start Date: 05/19/23 Status: Ordered Comment on above: Take 2 tablets by mo uth two times a day. Take 2 mg by mouth t wo times a day. calcium carbonate 500 mg chewable tablet (4 sources) Start: take 1 tablet by mouth every six hours as needed for gastroesophageal reflux disease Calcium Carbonate 200 mg calcium (500 mg) Tablet,Chewable Active 500 mg PO EVERY 6 HOURS NEEDED as needed for HEARTBURN 0 0 June 24, 2023 12:00am Centrum (3 sources) Start: take 1 tablet by mouth once daily Centrum Dose = 1 tab(s), Oral, qDay, 0 Refill(s) Start Date: 04/07/23 Status: Ordered Start: 04-07-2023 Centrum Dose = 1 tab(s), Nasogastric, qDay, 0 Refill(s) Start Date: 04/07/23 Status: Ordered ciprofloxacin 500 mg oral tablet (2 sources) Quinolone Antimicrobial Start: 02-08-2024 End: 02-18-2024 take 1 tablet by mouth twice daily ciprofloxacin HCl (CIPRO) 500 mg tablet Indications: Acute maxillary sinusitis, recurrence not specified Take 1 tablet by mouth two times a day for 10 days. 20 tablet 02/08/2024 02/18/2024 Active docusate sodium 100 mg oral capsule (20 sources) Start: 06-22-2023 take 1 capsule by mouth once daily as needed for constipation Docusate Sodium (Col-Rite) 100 mg capsule Active 100 mg PO DAILY as needed for constipation June 22, 2023 12:00am Start: 05-19-2023 End: 03-12-2025 take 1 capsule by mouth twice daily docusate sodium (COLACE) 100 mg capsule Take 1 capsule by mouth two times a day. 180 capsule 1 09/13/2024 03/12/2025 Active Start: 04-07-2023 End: 05-22-2023 docusate (COLACE) 10 mg/mL l iqd 10 mL two times a day. 0 04/07/2023 05/22/2023 Discontinued Comment on above: 10 mL two times a da y. Take 1 capsule by mo uth two times a day. Take 100 mg by mouth two times a day. docusate sodium 50 mg / sennosides, half-way 8.6 mg oral tablet (1 source) Start: 05-19-2023 End: 06-03-2023 take 1 tablet by mouth twice daily Senokot S 50 mg-8.6 mg oral tablet Dose = 2 tab(s), Oral, BID, # 60 tab(s), 0 Refill(s), Pharmacy: [facility], 155, cm, 04/27/23 19:46:00 EDT, Height, kg, 05/17/23 5:15:00 EDT, Dosing Weight Start Date: 05/19/23 Stop Date: 06/03/23 Status: Ordered docusate sodium 10 mg/mL oral liquid (2 sources) Start: 04-23-2023 take 1 dose by mouth twice daily docusate sodium 10 mg/mL oral liquid Dose : 100 mg = 10 mL, Oral, BID Start Date: 04/23/23 Status: Ordered Start: 04-23-2023 take 1 dose by mouth twice daily docusate sodium 10 mg/mL oral liquid Dose : 100 mg = 10 mL, Nasogastric, BID Start Date: 04/23/23 Status: Ordered dulaglutide (TRULICITY) 3 mg/0.5 mL pen injector (20 sources) Start: 11-09-2022 End: 11-09-2023 inject 3 mg by subcutaneous injection every week dulaglutide (TRULICITY) 3 mg/0.5 mL pen injector Indications: Controlled type 2 diabetes mellitus with diabetic neuropathy, with long-term current use of insulin (HCC) Inject 3 mg subcutaneously one time a week. 2 mL 11/09/2022 11/09/2023 Suspended Start: 11-09-2022 End: 11-09-2023 inject 3 mg by subcutaneous injection every week dulaglutide (TRULICITY) 3 mg/0.5 mL pen injector Indications: Controlled type 2 diabetes mellitus with diabetic neuropathy, with long-term current use of insulin (HCC) Inject 3 mg subcutaneously one time a week. 2 mL 11/09/2022 11/09/2023 Active Comment on above: Inject 3 mg subcutan eously one time a week. flash glucose scanning reader (FREESTYLE ANAHI 2 READER) (20 sources) Start: 03-04-2024 flash glucose scanning reader (FREESTYLE ANAHI 2 READER) Indications: Controlled type 2 diabetes mellitus with diabetic neuropathy, with long-term current use of insulin ([facility]) DMII, insulin requiring. Testing 3-5 times q day 1 Each 03/04/2024 Active Start: 11-05-2021 End: 04-07-2023 flash glucose scanning reade r (FREESTYLE ANAHI 2 READER) Indications: Controlled type 2 diabetes mellitus with diabetic neuropathy, with long-term current use of insulin (HCC) DMII, insulin requiring. Testing 3-5 times q day 1 Each 11/05/2021 04/07/2023 Discontinued Start: 11-05-2021 flash glucose scanning reader (FREESTYLE ANAHI 2 READER) Indications: Controlled type 2 diabetes mellitus with diabetic neuropathy, with long-term current use of insulin (HCC) DMII, insulin requiring. Testing 3-5 times q day 1 Each 0 11/05/2021 Suspended Start: 11-05-2021 flash glucose scanning reader (FREESTYLE ANAHI 2 READER) Indications: Controlled type 2 diabetes mellitus with diabetic neuropathy, with long-term current use of insulin (HCC) DMII, insulin requiring. Testing 3-5 times q day 1 Each 0 11/05/2021 Active Comment on above: DMII, insulin requir ing. Testing 3-5 times q day flash glucose sensor (FREESTYLE ANAHI 2 SENSOR) kit (20 sources) Start: 02-08-2024 flash glucose sensor (FREESTYLE ANAHI 2 SENSOR) kit Indications: Controlled type 2 diabetes mellitus with diabetic neuropathy, with long-term current use of insulin ([facility]) DMII, insulin requiring. Testing 3-5 times q day 2 Each 02/08/2024 Active Start: 08-07-2023 End: 02-08-2024 flash glucose sensor (FREEST YLE ANAHI 2 SENSOR) kit Indications: Controlled type 2 diabetes mellitus with diabetic neuropathy, with long-term current use of insulin ([facility]) DMII, insulin requiring. Testing 3-5 times q day 2 Each 08/07/2023 02/08/2024 Discontinued Start: 08-07-2023 flash glucose sensor (FREESTYLE ANAHI 2 SENSOR) kit Indications: Controlled type 2 diabetes mellitus with diabetic neuropathy, with long-term current use of insulin ([facility]) DMII, insulin requiring. Testing 3-5 times q day 2 Each 08/07/2023 Active Start: 10-20-2022 End: 04-07-2023 flash glucose sensor (FREEST YLE ANAHI 2 SENSOR) kit Indications: Controlled type 2 diabetes mellitus with diabetic neuropathy, with long-term current use of insulin ([facility]) Change sensor every 14 days for testing blood sugars 4 times daily or more DX: E11.40 Insulin: YES 6 Each 3 10/20/2022 04/07/2023 Discontinued Start: 10-20-2022 flash glucose sensor (FREESTYLE ANAHI 2 SENSOR) kit Indications: Controlled type 2 diabetes mellitus with diabetic neuropathy, with long-term current use of insulin ([facility]) Change sensor every 14 days for testing blood sugars 4 times daily or more DX: E11.40 Insulin: YES 6 Each 3 10/20/2022 Suspended Start: 10-20-2022 flash glucose sensor (FREESTYLE ANAHI 2 SENSOR) kit Indications: Controlled type 2 diabetes mellitus with diabetic neuropathy, with long-term current use of insulin ([facility]) Change sensor every 14 days for testing blood sugars 4 times daily or more DX: E11.40 Insulin: YES 6 Each 3 10/20/2022 Active Start: 10-05-2022 End: 10-19-2022 flash glucose sensor (FREEST YLE ANAHI 2 SENSOR) kit Indications: Controlled type 2 diabetes mellitus with diabetic neuropathy, with long-term current use of insulin ([facility]) DMII, insulin requiring. Testing 3-5 times q day 2 Each 10/05/2022 10/19/2022 Discontinued Start: 10-05-2022 flash glucose sensor (FREESTYLE ANAHI 2 SENSOR) kit Indications: Controlled type 2 diabetes mellitus with diabetic neuropathy, with long-term current use of insulin ([facility]) DMII, insulin requiring. Testing 3-5 times q day 2 Each 10/05/2022 Active Start: 07-04-2022 End: 10-05-2022 flash glucose sensor (FREEST YLE ANAHI 2 SENSOR) kit Indications: Controlled type 2 diabetes mellitus with diabetic neuropathy, with long-term current use of insulin ([facility]) DMII, insulin requiring. Testing 3-5 times q day 2 Each 07/04/2022 10/05/2022 Discontinued Start: 07-04-2022 flash glucose sensor (FREESTYLE ANAHI 2 SENSOR) kit Indications: Controlled type 2 diabetes mellitus with diabetic neuropathy, with long-term current use of insulin ([facility]) DMII, insulin requiring. Testing 3-5 times q day 2 Each 07/04/2022 Active Start: 11-05-2021 End: 07-04-2022 flash glucose sensor (FREEST YLE ANAHI 2 SENSOR) kit Indications: Controlled type 2 diabetes mellitus with diabetic neuropathy, with long-term current use of insulin ([facility]) DMII, insulin requiring. Testing 3-5 times q day 2 Each 11/05/2021 07/04/2022 Discontinued Start: 11-05-2021 flash glucose sensor (FREESTYLE ANAHI 2 SENSOR) kit Indications: Controlled type 2 diabetes mellitus with diabetic neuropathy, with long-term current use of insulin ([facility]) DMII, insulin requiring. Testing 3-5 times q day 2 Each 11/05/2021 Active Comment on above: DMII, insulin requir ing. Testing 3-5 times q day Change sensor every 14 days for testing blood sugars 4 times daily or more DX: E11.40 Insulin: YES guaiFENesin 20 mg/ml oral solution (20 sources) Start: 4 take 1 dose by mouth every six hours as needed guaiFENesin 100 mg/5 mL oral liquid Dose : 200 mg = 10 mL, Oral, q6h, PRN as needed for cough Start Date: 04/23/23 Status: Ordered Start: 04-07-2023 End: 07-05-2023 take 10 mL by mouth every six hours guaiFENesin (ROBITUSSIN) 100 mg/5 mL syrup 10 mL by ORAL/FEEDING TUBE route every 6 hours. 04/07/2023 07/05/2023 Discontinued Start: 12-13-2020 End: 10-25-2022 take 2 tablets by mouth twice daily guaiFENesin (MUCINEX) 600 mg 12 hr tablet Take 2 tablets by mouth twice daily. 24 tablet 12/13/2020 10/25/2022 Discontinued Comment on above: Take [address] [facility] twice daily. 10 mL by ORAL/FEEDIN G TUBE route every 6 hours. heparin 5000 units/mL injection (1 source) Start: inject 1 dose by subcutaneous injection every eight hours heparin 5000 units/mL injection Dose : 5,000 unit(s) =, Subcutaneous, q8h, mL, 0 Refill(s) Start Date: 04/07/23 Status: Ordered hydrocortisone 10 mg/ml / neomycin 3.5 mg/ml / polymyxin b 60886 unt/ml otic suspension (1 source) Aminoglycoside Antibacterial, Polymyxin-class Antibacterial, Corticosteroid Start: End: neomycin-polymyxi n-hydrocortisone (CORTISPORIN) 3.5-10,000-1 mg/mL-unit/mL-% otic suspension Indications: Acute otitis externa, unspecified laterality, unspecified type Use 4 drops in the left ear three times a day for 5 days. 10 mL 08/13/2024 08/18/2024 Active 3 ml insulin aspart, human 100 unt/ml pen injector (20 sources) Insulin Analog Start: End: 026 insulin aspart U-100 (NOVOLOG FLEXPEN U-100 INSULIN) 100 unit/mL (3 mL) pen Indications: Type 2 diabetes mellitus without complication, without long-term current use of insulin (HCC) Use for sliding scale as directed with meals Blood sugar 0-150, no coverage; 151- 200, 2 units; 201- 250 4 units; 251- 300 6 units 301- 350 8 units, > 351 10 units 5 each 08/23/2024 08/22/2025 Active Start: 12-18-2023 End: 12-19-2023 inject 10 [IU] by subcutaneous injection three times daily before mealtime insulin aspart U-100 (NOVOLOG FLEXPEN U-100 INSULIN) 100 unit/mL (3 mL) Indications: Type 2 diabetes mellitus without complication, without long-term current use of insulin (HCC) Inject 10 Units subcutaneously three times a day before meals. Use for sliding scale as directed 5 Each 12/19/2023 12/19/2023 Discontinued Start: 10-30-2020 End: 10-14-2022 Insulin Aspart U-100 (Novolo g Flexpen U-100 Insulin) 100 unit/mL (3 mL) insulin pen Active 2 U SC THREE TIMES A DAY October 14, 2022 1:11pm diabetes 2 units per every 50 after 200 BG Start: 03-26-2020 End: 04-07-2023 insulin aspart U-100 (NOVOLO G FLEXPEN U-100 INSULIN) 100 unit/mL (3 mL) Indications: Type 2 diabetes mellitus without complication, without long-term current use of insulin (HCC) Per sliding scale: 5 Pen 03/26/2020 05/03/2021 Discontinued Comment on above: Per sliding scale: < 200 no coverage, 201-250-2 units, 251-300-4 units, 301-350-6 units, 351-400-8 units, 400-450-10 units, call above 450. 3 ml insulin glargine 100 unt/ml pen injector (20 sources) Insulin Analog Start: 08-12-2024 End: 08-12-2025 insulin glargine (LANTUS SOLOSTAR U-100 INSULIN) 100 unit/mL (3 mL) Indications: Type 2 diabetes mellitus without complication, without long-term current use of insulin (HCC) Inject 22 Units subcutaneously daily at bedtime. 5 each 08/12/2024 08/12/2025 Active Start: 02-08-2024 End: 02-07-2025 insulin glargine (LANTUS MATTIE OSTAR U-100 INSULIN) 100 unit/mL (3 mL) Indications: Type 2 diabetes mellitus without complication, without long-term current use of insulin (HCC) Inject 20 Units subcutaneously daily at bedtime. 5 Each 02/08/2024 08/12/2024 Discontinued (Adjust Sig - Block E-Cancel) Start: 12-18-2023 End: 12-17-2024 insulin glargine (LANTUS MATTIE OSTAR U-100 INSULIN) 100 unit/mL (3 mL) Indications: Type 2 diabetes mellitus without complication, without long-term current use of insulin (HCC) Inject 12 Units subcutaneously daily at bedtime. 5 Each 3 12/18/2023 02/08/2024 Discontinued Start: 11-21-2023 End: 06-04-2024 inject 18 [IU] by subcutaneous injection once daily insulin glargine 100 unit/mL (3 mL) Indications: Type 2 diabetes mellitus without complication, without long-term current use of insulin (HCC) Inject 18 Units subcutaneously once daily. 15 mL 1 12/07/2023 12/18/2023 Discontinued (Changing Therapy/Dosage Form) Start: 11-07-2023 End: 05-05-2024 inject 16 [IU] by subcutaneous injection once daily insulin glargine 100 unit/mL (3 mL) Inject 16 Units subcutaneously once daily. 10.8 mL 1 11/07/2023 11/21/2023 Discontinued (Adjust Sig - Block E-Cancel) Start: 10-30-2023 End: 04-27-2024 inject 14 [IU] by subcutaneous injection once daily insulin glargine 100 unit/mL (3 mL) Inject 14 Units subcutaneously once daily. 10.8 mL 1 10/30/2023 11/07/2023 Discontinued Start: 05-22-2023 End: 11-18-2023 inject 12 [IU] by subcutaneous injection once daily insulin glargine 100 unit/mL (3 mL) Inject 12 Units subcutaneously once daily. 10.8 mL 1 05/22/2023 10/30/2023 Discontinued (Adjust Sig - Block E-Cancel) Start: 05-19-2023 Lantus 100 uni ts/mL10 ml vial solution Dose : 12 unit(s) =, Subcutaneous (INT), acSupper, # 10 mL, 0 Refill(s), Pharmacy: [facility] #[facility], 155, cm, 04/27/23 19:46:00 EDT, Height, kg, 05/17/23 5:15:00 EDT, Dosing Weight Start Date: 05/19/23 Status: Ordered Start: 04-07-2023 insulin glargi ne Dose : 16 unit(s) =, Subcutaneous, acSupper, 0 Refill(s) Start Date: 04/07/23 Status: Ordered Start: 04-07-2023 End: 05-22-2023 insulin glargine 100 unit/mL (3 mL) Inject 16 Units subcutaneously once daily. At 5pm. If patient is taking nothing by mouth, or if enteral or parenteral nutrition is stopped, call provider to obtain updated basal insulin orders. If blood glucose is less than 70 mg/dL implement hypoglycemia treatment orders and notify provider. DO NOT MIX with other insulins. Each insulin pen must be used for a single patient only. Inject for 10 seconds. 04/07/2023 05/22/2023 Discontinued Start: 01-09-2023 End: 07-08-2023 insulin glargine (LANTUS MATTIE OSTAR U-100 INSULIN) 100 unit/mL (3 mL) Inject 20 Units subcutaneously daily at bedtime. 6 Each 1 01/09/2023 07/08/2023 Suspended Start: 10-14-2022 Insulin Glargi ne 100 unit/mL (3 mL) insulin pen Active 12 U SC .QAM October 14, 2022 12:00am diabetes Start: 12-27-2021 End: 07-08-2023 insulin glargine (LANTUS MATTIE OSTAR U-100 INSULIN) 100 unit/mL (3 mL) Inject 20 Units subcutaneously daily at bedtime. 6 Each 1 11/21/2022 01/09/2023 Discontinued Start: 10-29-2021 End: 11-21-2022 insulin glargine (LANTUS MATTIE OSTAR U-100 INSULIN) 100 unit/mL (3 mL) Inject 20 Units subcutaneously daily at bedtime. 6 Each 1 06/07/2022 11/21/2022 Discontinued Start: 10-11-2021 End: 10-29-2021 inject 10 [IU] by subcutaneous injection once daily at bedtime insulin glargine (LANTUS SOLOSTAR U-100 INSULIN) 100 unit/mL (3 mL) Inject 10 Units subcutaneously daily at bedtime. 5 Pen 0 10/11/2021 10/29/2021 Discontinued (Adjust Sig - Block E-Cancel) Start: 05-04-2021 inject 10 [IU] by mccoy bcutaneous injection once daily at bedtime insulin glargine (LANTUS SOLOSTAR U-100 INSULIN) 100 unit/mL (3 mL) Inject 10 Units subcutaneously daily at bedtime. 5 Pen 0 05/04/2021 Active Comment on above: Inject 10 Units subcutaneously daily at bedtime. Inject 20 Units subc utaneously daily at bedtime. Inject 16 Units subc utaneously once daily. At 5pm. If patient is taking nothing by mouth, or if enteral or parenteral nutrition is stopped, call provider to obtain updated basal insulin orders. If blood glucose is less than 70 mg/dL implement hypoglycemia treatment orders and notify provider. DO NOT MIX with other insulins. Each insulin pen must be used for a single patient only. Inject for 10 seconds. Inject 12 Units subc utaneously once daily. iv contrast (will be provided with radiology test) (1 source) Start: End: inject 1 dose intravenously once iv contrast (will be provided with radiology test) Indications: Encounter for preprocedural cardiovascular examination , Sleep apnea, unspecified type , Bicuspid aortic valve , Nonrheumatic aortic valve stenosis , Preoperative testing CTA ABD/PEL - No IV access, insert saline lock prior to the sedation, infusion, injection for imaging exam. Discontinue saline lock post exam. If Pt. has a central line or IVAD, may access for administration according to line specific nursing protocol. Once exam is complete flush line and de-access according to line specific nursing protocol in the CT contrast administration guidelines link. 1 Each 0 11/08/2022 11/09/2022 Active Comment on above: CTA ABD/PEL - No IV access, insert salin e lock prior to the sedation, infusion, injection for imaging exam. Discontinue saline lock post exam. If Pt. has a central line or IVAD, may access for administration according to line specific nursing protocol. Once exam is complete flush line and de-access according to line specific nursing protocol in the CT contrast administration guidelines link. ammonium lactate 120 mg/ml topical cream (20 sources) Start: ammonium lactate 12% topical cream 1 application, Topical, PRN as needed dry skin, 0 Refill(s), 127 Start Date: 04/07/23 Status: Ordered Start: 02-27-2023 End: 05-14-2025 ammonium lactate (LAC-HYDRIN ) 12 % cream Indications: Controlled type 2 diabetes mellitus with diabetic neuropathy, with long-term current use of insulin (HCC) Apply to affected area as needed for dry skin. 385 g 3 05/14/2024 05/14/2025 Active Comment on above: Apply to affected ar ea as needed for dry skin. Lidocaine (12 sources) Antiarrhythmic, Amide Local Anesthetic Start: 04-07-2023 apply 1 dose topically once daily lidocaine 4% patch Dose = 2 patch(es), Topical, qDay, 0 Refill(s) Start Date: 04/07/23 Status: Ordered Start: 04-07-2023 apply 1 dose topically once da bebo lidocaine 4% patch Dose = 1 patch(es), Topical, qDay, 0 Refill(s) Start Date: 04/07/23 Status: Ordered Start: 04-07-2023 End: 05-22-2023 apply 1 dose transdermal route once daily, then apply 1 dose transdermal route every twelve hours lidocaine (SALONPAS) 4 % patch Apply 1 Patch as directed once daily. APPLY TO: BUTTOCKS - Remove patch after 12 hours. 0 04/07/2023 05/22/2023 Discontinued Start: 04-07-2023 End: 05-22-2023 lidocaine (SALONPAS) 4 % pat ch Apply 2 Patches as directed once daily. APPLY TO: CHEST - Remove patch after 12 hours. 0 04/07/2023 05/22/2023 Discontinued Comment on above: Apply 1 Patch as dir ected once daily. APPLY TO: BUTTOCKS - Remove patch after 12 hours. Apply 2 Patches as d irected once daily. APPLY TO: CHEST - Remove patch after 12 hours. Magnesium Hydroxide (20 sources) Start: 04-07-2023 magnesium hydroxide Dose = 30 mL, Nasogastric, q6h, PRN as needed for constipation, 0 Refill(s) Start Date: 04/07/23 Status: Ordered Start: 04-07-2023 take 30 mL enteral r oute every six hours as needed magnesium hydroxide (MOM) 400 mg/5 mL suspension 30 mL by CORPAK route every 6 hours as needed. 04/07/2023 Active Comment on above: 30 mL by CORPAK rout e every 6 hours as needed. melatonin 5 mg oral tablet (20 sources) Start: 05-19-2023 melatonin Dose : 5 mg = 1 tab(s), Oral, qHS, 0 Refill(s) Start Date: 05/19/23 Status: Ordered Melatonin 5 mg c ap Take by mouth. Active Comment on above: Take by mouth. metoprolol tartrate 37.5 mg oral tablet (20 sources) beta-Adrenergic Maren Start: 06-22-2023 Metoprolol Tartrate 25 mg tablet Active 37.5 mg PO Q12H June 22, 2023 12:00am blood pressure / heart Start: 06-22-2023 take 37.5 mg by mout h every twelve hours Metoprolol Tartrate Active 37.5 MG PO Q12H June 22, 2023 12:00am Start: 05-22-2023 End: 03-12-2025 take 1 tablet by mouth every twelve hours metoprolol tartrate 37.5 mg tab Indications: Mild CAD , Arterial ischemic stroke, MCA (middle cerebral artery), left, acute (HCC) , Dilatation of aorta , Bicuspid aortic valve (HCC) Take 1 tablet by mouth every 12 hours. 180 tablet 1 09/13/2024 03/12/2025 Active Start: 05-19-2023 metoprolol tar trate 37.5 mg oral tablet Dose : 37.5 mg = 1 tab(s), Oral, BID, # 60 tab(s), 0 Refill(s), Pharmacy: [facility] #[id number], 155, cm, 04/27/23 19:46:00 EDT, Height, kg, 05/17/23 5:15:00 EDT, Dosing Weight Start Date: 05/19/23 Status: Ordered Start: 05-19-2023 End: 05-20-2023 metoprolol tartrate 25 mg or al tablet Start: 05/20/23 8:00:00 AM EDT, Dose = 37.5 mg, = 3 EA, Oral, 0, 04/27/23 21:13:00 EDT Start Date: 05/20/23 Stop Date: 05/20/23 Status: Completed Start: 04-27-2023 End: 04-27-2023 metoprolol tartrate (Lopress or) Start: 04/27/23 5:00:00 PM EDT, Dose = 37.5 mg, = 3 EA, Oral, 04/26/23 11:31:00 EDT Start Date: 04/27/23 Stop Date: 04/27/23 Status: Completed Start: 04-27-2023 End: 04-27-2023 metoprolol tartrate (Lopress or) Start: 04/27/23 8:00:00 AM EDT, Dose = 37.5 mg, = 3 EA, Oral, 04/26/23 11:31:00 EDT Start Date: 04/27/23 Stop Date: 04/27/23 Status: Completed Start: 04-26-2023 End: 04-26-2023 metoprolol tartrate (Lopress or) Start: 04/26/23 5:00:00 PM EDT, Dose = 37.5 mg, = 3 EA, Oral, 04/26/23 11:31:00 EDT Start Date: 04/26/23 Stop Date: 04/26/23 Status: Completed Start: 04-22-2023 End: 04-22-2023 metoprolol tartrate 25 mg or al tablet Start: 04/22/23 5:00:00 PM EST, Dose = 37.5 mg, = 3 EA, Oral, 0, 04/10/23 11:07:00 EST Start Date: 04/22/23 Stop Date: 04/22/23 Status: Completed Start: 04-07-2023 metoprolol tar trate 37.5 mg oral tablet Dose : 37.5 mg = 1 tab(s), Oral, BID, # 180 tab(s), 0 Refill(s) Start Date: 04/07/23 Status: Ordered Start: 04-07-2023 End: 05-22-2023 metoprolol tartrate, short a cting, 37.5 mg tab 1 tablet by CORPAK route every 12 hours. 0 04/07/2023 05/22/2023 Discontinued Comment on above: 1 tablet by CORPAK r oute every 12 hours. Take 1 tablet by cristina th every 12 hours. miconazole nitrate 0.02 mg/mg topical powder (1 source) Azole Antifungal Start: End: Desenex 2% topical powder Apply 1 nan, Topical, BID, # 43 gram(s), 0 Refill(s), Pharmacy: [facility], Powder, 155, cm, 04/27/23 19:46:00 EDT, Height, 118, kg, 05/17/23 5:15:00 EDT, Dosing Weight Start Date: 05/19/23 Stop Date: 05/25/23 Status: Ordered Milk of Magnesia (1 source) Start: 4 take 1 dose by mouth once daily at bedtime as needed for constipation Milk of Magnesia Dose = 30 mL, Oral, qHS, PRN Constipation, 0 Refill(s) Start Date: 05/19/23 Status: Ordered MULTIVITAMIN-FERROU S FUMARATE-FOLIC ACID 18 MG-400 MCG TABLET (20 sources) Start: 4 take 1 tablet by mouth once daily at breakfast MULTIVITAMIN-FERR OUS FUMARATE-FOLIC ACID 18 MG-400 MCG TABLET Take 1 tablet by mouth daily with breakfast. 30 tablet 11 05/24/2023 Active Start: 05-24-2023 End: 05-23-2024 take 1 tablet by mouth once daily at breakfast MULTIVITAMIN-FERROUS FUMARATE-FOLIC ACID 18 MG-400 MCG TABLET Take 1 tablet by mouth daily with breakfast. 30 tablet 11 05/24/2023 05/23/2024 Active Start: 04-07-2023 End: 05-24-2023 MULTIVITAMIN-FERROUS FUMARAT E-FOLIC ACID 18 MG-400 MCG TABLET 1 tablet by CORPAK route daily with breakfast. 04/07/2023 05/24/2023 Discontinued Start: 04-07-2023 End: 05-24-2023 MULTIVITAMIN-FERROUS FUMARAT E-FOLIC ACID 18 MG-400 MCG TABLET 1 tablet by CORPAK route daily with breakfast. 0 04/07/2023 05/24/2023 Discontinued Start: 04-07-2023 MULTIVITAMIN-F ERROUS FUMARATE-FOLIC ACID 18 MG-400 MCG TABLET 1 tablet by CORPAK route daily with breakfast. 0 04/07/2023 Active Comment on above: 1 tablet by CORPAK r oute daily with breakfast. Take 1 tablet by cristina th daily with breakfast. Mq-Mku-Eenfo-K1-Lycop en-Lutein (Centrum Silver Men) [phone] mcg tablet (5 sources) Start: 06-22-2023 Tr-Tfz-Ixhha-K1-Lycopen- Lutein (Roland Doyle) [phone] mcg tablet Active 1 {tbl} PO DAILY June 22, 2023 12:00am supplement Start: 06-22-2023 Bb-Bbo-Ocoim-K 8-Ksrgknc-Pshyst (Roland Doyle) [phone] mcg tablet Active 1 {tbl} PO DAILY June 22, 2023 12:00am Start: 06-22-2023 take 1 tablet by cristina th once daily Ca-Wsd-Tvsjt-X4-Cvkknad-Umjhll (Roland Doyle) [phone] mcg tablet Active 1 TABLET PO DAILY June 22, 2023 12:00am ondansetron 4 mg oral tablet (20 sources) Serotonin-3 Receptor Antagonist Start: 05-25-2023 End: 08-07-2024 take 1 tablet by mouth every eight hours as needed for nausea and vomiting Ondansetron Hcl 4 mg tablet Active 4 mg PO EVERY 8 HOURS NEEDED as needed for nausea and vomiting June 22, 2023 12:00am Comment on above: Take 1 tablet by cristina every 8 hours as needed for nausea/vomiting. pantoprazole 40 mg delayed release oral tablet (20 sources) Proton Pump Inhibitor Start: 04-07-2023 take 1 dose by mouth once daily pantoprazole Dose : 40 mg =, Oral, qDay, 0 Refill(s) Start Date: 04/07/23 Status: Ordered Start: 04-07-2023 pantoprazole D ose : 40 mg =, Nasogastric, qDay, 0 Refill(s) Start Date: 04/07/23 Status: Ordered Start: 12-17-2019 End: 03-12-2025 take 1 tablet by mouth once daily before breakfast pantoprazole DR (PROTONIX) 40 mg tablet Indications: GERD without esophagitis Take 1 tablet by mouth daily before breakfast. Take on empty stomach, 1/2 hr before meal. 90 tablet 1 09/13/2024 03/12/2025 Active Comment on above: Take 1 tablet by cristina th daily before breakfast. Take on empty stomach, 1/2 hr before meal. phenylephrine hydrochloride 25 mg/ml ophthalmic solution (1 source) alpha-1 Adrenergic Agonist Start: 05-31-2022 End: 06-01-2022 PHENYLephrine 2.5 % 1 Drop (AK-DILATE, DREAD-SYNEPHRINE) polyethylene glycol 3350 98328 mg powder for oral solution (20 sources) Osmotic Laxative Start: 05-24-2023 End: 05-23-2024 polyethylene glycol 3350 17 gram packet Take 1 Packet by mouth once daily. Dissolve dose in 4 - 8 ounces of liquid and take as directed. 30 Packet 11 05/24/2023 05/23/2024 Active Start: 04-07-2023 Miralax Powder Packet Oral, qDay, PRN Constipation, 0 Refill(s) Start Date: 05/19/23 Status: Ordered Start: 04-07-2023 End: 05-24-2023 polyethylene glycol 3350 17 gram packet 1 Packet by CORPAK route once daily. Dissolve dose in 4 - 8 ounces of liquid and take as directed. 04/07/2023 05/24/2023 Discontinued Comment on above: 1 Packet by CORPAK r oute once daily. Dissolve dose in 4 - 8 ounces of liquid and take as directed. Take 1 Packet by cristina th once daily. Dissolve dose in 4 - 8 ounces of liquid and take as directed. Polyethylene Glycol 400 / Propylene glycol (20 sources) Start: 04-07-2023 Systane 1 drop, Eyes, both, qHS, 0 Refill(s) Start Date: 04/07/23 Status: Ordered Start: 05-31-2022 End: 07-05-2023 PEG 400-propylene glycol (SY STANE ULTRA) 0.4-0.3 % ophthalmic solution Indications: Type 2 diabetes mellitus without retinopathy (HCC) , Dry eye syndrome of bilateral lacrimal glands Use 1 Drop in both eyes three times daily. 15 mL 3 05/31/2022 07/05/2023 Discontinued (Other) Start: 05-31-2022 End: 07-05-2023 PEG 400-propylene glycol (SY STANE ULTRA) 0.4-0.3 % ophthalmic solution Indications: Type 2 diabetes mellitus without retinopathy (HCC) , Dry eye syndrome of bilateral lacrimal glands Use 1 Drop in both eyes three times daily. 15 mL 3 05/31/2022 07/05/2023 Active Comment on above: Use 1 Drop in both e yes three times daily. pregabalin 200 mg oral capsule (20 sources) Start: 05-22-2023 End: 03-12-2025 take 1 capsule by mouth once daily at bedtime pregablin (LYRICA) 200 mg capsule Indications: Chronic back pain, unspecified back location, unspecified back pain laterality Take 1 capsule by mouth daily at bedtime for 180 days. 90 capsule 1 09/13/2024 03/12/2025 Active Start: 04-07-2023 pregabalin 200 mg oral capsule Dose : 200 mg = 1 cap(s), Oral, qHS, 0 Refill(s), 127 Start Date: 04/07/23 Status: Ordered Start: 04-07-2023 End: 07-06-2023 pregabalin (LYRICA) 100 mg c apsule 1 capsule by CORPAK route two times a day for 90 days. 04/07/2023 05/22/2023 Discontinued Start: 04-07-2023 End: 07-06-2023 pregabalin (LYRICA) 200 mg c apsule 1 capsule by CORPAK route daily at bedtime for 90 days. 30 capsule 2 04/07/2023 05/22/2023 Discontinued Start: 10-21-2022 End: 03-09-2023 pregabalin (LYRICA) 100 mg c apsule Indications: DDD (degenerative disc disease), lumbar Take two in the morning, one in the afternoon, and one in the evening. (total of 4 capsules daily). 120 capsule 2 10/21/2022 12/29/2022 Discontinued Start: 10-14-2022 End: 03-12-2025 take 1 capsule by mouth once daily pregabalin (LYRICA) 100 mg capsule Indications: Chronic back pain, unspecified back location, unspecified back pain laterality Take 1 capsule by mouth once daily for 180 days. 90 capsule 1 09/13/2024 03/12/2025 Active Start: 12-11-2012 End: 10-14-2022 take 2 capsules by mouth twice daily Pregabalin (Lyrica) 100 MG capsule Discontinued 200 mg PO TWICE A DAY December 11, 2012 12:00am October 14, 2022 1:14pm NEUROPATHY Start: 12-11-2012 End: 02-08-2021 take 1 capsule by mouth three times daily pregabalin (LYRICA) 100 mg capsule Indications: DDD (degenerative disc disease), lumbar Take 1 capsule by mouth three times daily for 30 days. 90 capsule 04/09/2020 04/17/2020 Discontinued Comment on above: Take two in the morn ing, one in the afternoon, and one in the evening. (total of 4 capsules daily). Do not start before June 10, 2021. Take two in the morn ing, one in the afternoon, and one in the evening. (total of 4 capsules daily). Take 1 capsule by mo uth three times daily for 90 days. 1 capsule by CORPAK route two times a day for 90 days. 1 capsule by CORPAK route daily at bedtime for 90 days. Take 1 capsule by mo uth once daily for 90 days. Take 1 capsule by mo uth daily at bedtime for 180 days. proparacaine hydrochloride 5 mg/ml ophthalmic solution (1 source) Local Anesthetic Start: 3 End: 3 proparacaine 0.5 % 1 Drop (ALCAINE) sennosides, half-way 1.76 mg/ml oral solution (7 sources) Start: 4 take 1 dose by mouth twice daily senna (sennosides) 8.8 mg/5 mL oral syrup Dose : 8.8 mg = 5 mL, Oral, BID, 0 Refill(s) Start Date: 04/07/23 Status: Ordered Start: 04-07-2023 End: 05-22-2023 take 5 mL by mouth twice daily sennosides (SENNA) 8.8 mg/5 mL oral liquid 5 mL by CORPAK route two times a day. 0 04/07/2023 05/22/2023 Discontinued (Other) Comment on above: 5 mL by CORPAK route two times a day. Symbicort 80 mcg-4.5 mcg/inh Inhaler (3 sources) Start: 05-19-2023 take 1 dose by inhalation twice daily Symbicort 80 mcg-4.5 mcg/inh Inhaler Dose = 2 puff(s), Inhalation, BID, # 6.9 gram(s), 0 Refill(s), Pharmacy: [facility], 155, cm, 04/27/23 19:46:00 EDT, Height, kg, 05/17/23 5:15:00 EDT, Dosing Weight Start Date: 05/19/23 Status: Ordered Start: 04-07-2023 take 1 dose by inhal ation twice daily Symbicort 80 mcg-4.5 mcg/inh Inhaler Dose = 2 puff(s), Inhalation, BID, 0 Refill(s) Start Date: 04/07/23 Status: Ordered Systane Ultra (1 source) Start: 04-07-2023 take 1 dose into the eye(s) three times daily Systane Ultra Dose = 1 drop(s), Eyes, both, TID, 0 Refill(s) Start Date: 04/07/23 Status: Ordered traZODone hydrochloride 50 mg oral tablet (20 sources) Serotonin Reuptake Inhibitor Start: 05-23-2023 End: 03-12-2025 take 1 tablet by mouth once daily at bedtime traZODone (DESYREL) 50 mg tablet Indications: Chronic insomnia Take 1 tablet by mouth daily at bedtime. 90 tablet 1 09/13/2024 03/12/2025 Active Comment on above: Take 1 tablet by cristina th daily at bedtime. tropicamide 10 mg/ml ophthalmic solution (1 source) Anticholinergic Start: 05-31-2022 End: 06-01-2022 tropicamide 1 % 1 Drop (MYDRIACYL) zinc oxide 130 mg/ml topical cream (12 sources) Start: 05-19-2023 End: 06-13-2023 zinc oxide 13% topical cream 1 application, Topical, BID, # 56 gram(s), 0 Refill(s), Pharmacy: [facility], 155, cm, 04/27/23 19:46:00 EDT, Height, kg, 05/17/23 5:15:00 EDT, Dosing Weight Start Date: 05/19/23 Stop Date: 06/13/23 Status: Ordered Start: 04-07-2023 zinc oxide 13% topical cream 1 application, Topical, BID, 0 Refill(s) Start Date: 04/07/23 Status: Ordered Start: 04-07-2023 End: 05-23-2023 zinc oxide (DESITIN) 13 % cr ea Apply to affected area two times a day. FOR EXTERNAL USE ONLY APPLY TO: perianal, coccyx and bilateral ischium BID and as needed. Cover with dry dressing and change dressing as needed. 04/07/2023 05/23/2023 Discontinued (Course of therapy completed) Comment on above: Apply to affected ar ea two times a day. FOR EXTERNAL USE ONLY APPLY TO: perianal, coccyx and bilateral ischium BID and as needed. Cover with dry dressing and change dressing as needed. Completed/Discontinued Medications Medication Drug Class(es) Dates Sig (Normalized) Sig (Original) acetaminophen 325 mg / oxyCODONE hydrochloride 5 mg oral tablet (20 sources) Opioid Agonist Start: 05-29-2017 End: 10-25-2022 take 1 tablet by mouth three times daily oxyCODONE-acetami nophen (PERCOCET) 5-325 mg tablet Take 1 tablet by mouth three times daily. 0 05/29/2017 10/25/2022 Discontinued Comment on above: Take 1 tablet by cristina th three times daily. amiodarone hydrochloride 200 mg oral tablet (20 sources) Antiarrhythmic Start: 06-22-2023 End: 06-22-2023 Amiodarone Discontinued MG PO June 22, 2023 12:00am June 22, 2023 4:58pm Start: 05-22-2023 End: 11-18-2023 Amiodarone 200 mg tablet Dis continued mg PO June 22, 2023 12:00am June 22, 2023 4:58pm Start: 05-19-2023 amiodarone 200 mg oral tablet Dose : 200 mg = 1 tab(s), Oral, qDay, # 30 tab(s), 0 Refill(s), Pharmacy: [facility] #[id number], 155, cm, 04/27/23 19:46:00 EDT, Height, kg, 05/17/23 5:15:00 EDT, Dosing Weight Start Date: 05/19/23 Status: Ordered Start: 04-07-2023 amiodarone 200 mg oral tablet Dose : 200 mg = 1 tab(s), Oral, qDay, # 30 tab(s), 0 Refill(s) Start Date: 04/07/23 Status: Ordered Start: 04-07-2023 End: 05-22-2023 amiodarone (PACERONE) 200 mg tablet 1 tablet by CORPAK route once daily. 0 04/07/2023 05/22/2023 Discontinued Comment on above: 1 tablet by NICO r gage once daily. Take 1 tablet by cristina once daily. Ammonium,Pot.and Sodium Lactates (AMLACTIN) crea (20 sources) Start: 01-02-2019 End: 10-25-2022 Ammonium,Pot.and Sodium Lactates (AMLACTIN) crea Apply 1 application to affected area once daily. 1 Tube 11 01/02/2019 10/25/2022 Discontinued Start: 01-02-2019 Ammonium,Pot.a nd Sodium Lactates (AMLACTIN) crea Apply 1 application to affected area once daily. 1 Tube 11 01/02/2019 Active Comment on above: Apply 1 application to affected area once daily. amoxicillin 875 mg / clavulanate 125 mg oral tablet (1 source) Penicillin-class Antibacterial Start: 02-08-20 End: 02-08-20 take 1 tablet by mouth twice daily amoxicillin-clavulan ate potassium (AUGMENTIN) 875-125 mg per tablet Indications: Acute maxillary sinusitis, recurrence not specified Take 1 tablet by mouth two times a day for 10 days. 20 tablet 02/08/2024 02/08/2024 Discontinued (Erroneous entry) benoxinate hydrochloride 4 mg/ml / fluorescein sodium 2.5 mg/ml ophthalmic solution (2 sources) Diagnostic Dye Start: 07-15-19 End: 07-16-19 fluorescein-benoxina te 0.25-0.4 % 1 Drop (FLURESS) Start: 07-14-2022 End: 07-15-2022 fluorescein-benoxinate 0.25- 0.4 % 1 Drop (FLURESS) benzonatate 100 mg oral capsule (20 sources) Non-narcotic Antitussive Start: 05-24-2019 End: 10-25-2022 take 1 capsule by mouth every eight hours as needed benzonatate (TESSALON PERLES) 100 mg capsule Take 1 capsule by mouth three times daily as needed. 30 capsule 05/24/2019 10/25/2022 Discontinued Comment on above: Take 1 capsule by mo [facility] three times daily as needed. Blood-Glucose Meter misc (20 sources) Start: 12-21-2015 End: 04-07-2023 Blood-Glucose Meter misc Indications: Type 2 diabetes mellitus without complication, without long-term current use of insulin ([facility]) Dispense 1 kit 1 Each 0 12/21/2015 04/07/2023 Discontinued Start: 12-21-2015 Blood-Glucose Meter misc Indications: Type 2 diabetes mellitus without complication, without long-term current use of insulin ([facility]) Dispense 1 kit 1 Each 0 12/21/2015 Suspended Start: 12-21-2015 Blood-Glucose Meter misc Indications: Type 2 diabetes mellitus without complication, without long-term current use of insulin ([facility]) Dispense 1 kit 1 Each 0 12/21/2015 Active Comment on above: Dispense 1 kit carvedilol 3.125 mg oral tablet (20 sources) alpha-Adrenergic Maren, beta-Adrenergic Maren Start: 3 End: 4 take 1 tablet by mouth twice daily Carvedilol 3.125 mg tablet Discontinued 3.125 mg PO TWICE A DAY October 09, 2022 12:00am June 22, 2023 4:59pm BP Comment on above: Take 1 tablet by cristina twice daily. celecoxib 200 mg oral capsule (20 sources) Nonsteroidal Anti-inflammatory Drug Start: 3 End: 3 Celecoxib Discontinued MG PO October 14, 2022 12:00am October 14, 2022 1:28pm Start: 10-30-2020 End: 10-25-2022 Celecoxib 200 mg capsule Dis continued mg PO October 14, 2022 12:00am October 14, 2022 1:28pm Comment on above: Take 200 mg by mouth twice daily. ciprofloxacin 3 mg/ml / dexamethasone 1 mg/ml otic suspension (3 sources) Corticosteroid, Quinolone Antimicrobial Start: 08-08-19 End: 08-15-19 ciprofloxacin-dexAME THasone (CIPRODEX) 0.3-0.1 % otic suspension Indications: Acute otitis externa of left ear, unspecified type Use 4 drops in the left ear two times a day for 7 days. 7.5 mL 08/07/2024 08/13/2024 Discontinued clindamycin 300 mg oral capsule (20 sources) Lincosamide Antibacterial Start: 10-26-19 End: 04-07-19 take 1 capsule by mouth four times daily clindamycin (CLEOCIN) 300 mg capsule Indications: Cutaneous abscess of right lower extremity , Cellulitis of skin Take 1 capsule by mouth four times daily. 40 capsule 10/25/2022 04/07/2023 Discontinued Comment on above: Take 1 capsule by mo ut four times daily. Compression Knee Highs (20 sources) Start: 08-04-19 End: 04-07-19 Compression Knee Highs Indications: Edema, unspecified type , Venous insufficiency KNEE HIGH COMPRESSION STOCKINGS 30-40 MM. DX: EDEMA 1 Each 3 08/03/2018 04/07/2023 Discontinued Start: 08-03-2018 Compression Kn ee Highs Indications: Edema, unspecified type , Venous insufficiency KNEE HIGH COMPRESSION STOCKINGS 30-40 MM. DX: EDEMA 1 Each 3 08/03/2018 Suspended Start: 08-03-2018 Compression Kn ee Highs Indications: Edema, unspecified type , Venous insufficiency KNEE HIGH COMPRESSION STOCKINGS 30-40 MM. DX: EDEMA 1 Each 3 08/03/2018 Active Comment on above: KNEE HIGH COMPRESSIO N STOCKINGS 30-40 MM. DX: EDEMA cyclobenzaprine hydrochloride 10 mg oral tablet (8 sources) Muscle Relaxant Start: End: take 1 tablet by mouth three times daily as needed for muscle spasms Cyclobenzaprine 10 mg tablet Discontinued 10 mg PO THREE TIMES A DAY as needed for Muscle Spasm 20 0 September 23, 2022 12:00am October 09, 2022 10:33pm diclofenac potassium 25 mg oral tablet (14 sources) Nonsteroidal Anti-inflammatory Drug Start: End: take 1 capsule by mouth every twelve hours Diclofenac Potassium 25 mg cap Take 1 capsule by mouth every 12 (twelve) hours. 0 10/14/2022 10/25/2022 Discontinued Start: 10-09-2022 End: 06-22-2023 take 1 capsule by mouth twice daily Diclofenac Potassium 25 mg capsule Discontinued 25 mg PO TWICE A DAY October 09, 2022 12:00am June 22, 2023 4:59pm PAIN Comment on above: Take [address] [facility] every 12 (twelve) hours. Take 25 mg by mouth two times a day. 24 hr dilTIAZem hydrochloride 180 mg extended release oral capsule (20 sources) Calcium Channel Maren Start: 4 End: take 1 capsule by mouth once daily Diltiazem Hcl 180 MG capsule,extended release 24 hr Discontinued 180 mg PO DAILY November 20, 2013 12:00am June 22, 2023 4:59pm Comment on above: Take 1 capsule by mo [facility] once daily. 0.5 ml dulaglutide 3 mg/ml auto-injector (20 sources) GLP-1 Receptor Agonist Start: End: dulaglutide (TRULICITY) 1.5 mg/0.5 mL pen injector Indications: Controlled type 2 diabetes mellitus with diabetic neuropathy, with long-term current use of insulin ([facility]) Inject 3 mg subcutaneously one time a week. Inject once per week. Discard Pen After 4 mL 03/21/2022 10/25/2022 Discontinued Start: 01-08-2020 End: 11-12-2021 dulaglutide (TRULICITY) 1.5 mg/0.5 mL pen injector Inject 1.5 mg subcutaneously one time a week. Inject once per week. Discard Pen After 12 Each 1 04/17/2020 04/30/2021 Discontinued Start: 11-03-2016 End: 06-22-2023 Dulaglutide (Trulicity) 0.75 MG/0.5 ML pen injector Discontinued 3 mg SQ EVERY WEEK November 03, 2016 12:00am June 22, 2023 4:59pm DIABETES Start: 11-03-2016 Dulaglutide (T rulicity) 0.75 MG/0.5 ML pen injector Active 1.5 MG SQ EVERY WEEK November 03, 2016 12:00am Comment on above: Inject 1.5 mg subcut aneously one time a week. Inject once per week. Discard Pen After Inject 3 mg subcutan eously one time a week. Inject once per week. Discard Pen After dulaglutide (TRULICITY) 3 mg/0.5 mL pen injector (20 sources) Start: 022 End: 023 inject 3 mg by subcutaneous injection every week dulaglutide (TRULICITY) 3 mg/0.5 mL pen injector Indications: Controlled type 2 diabetes mellitus with diabetic neuropathy, with long-term current use of insulin (HCC) Inject 3 mg subcutaneously one time a week. 2 mL 11 11/12/2021 11/09/2022 Discontinued Start: 11-12-2021 End: 11-12-2022 inject 3 mg by subcutaneous injection every week dulaglutide (TRULICITY) 3 mg/0.5 mL pen injector Indications: Controlled type 2 diabetes mellitus with diabetic neuropathy, with long-term current use of insulin ([facility]) Inject 3 mg subcutaneously one time a week. 2 mL 11 11/12/2021 11/12/2022 Active Comment on above: Inject 3 mg subcutan eously one time a week. ergocalciferol 1.25 mg oral capsule (20 sources) Provitamin D2 Compound Start: 10-09-2022 End: 06-22-2023 Ergocalciferol (Vitamin D2) (Vitamin D2) 1,250 mcg (50,000 unit) capsule Discontinued 85479 U PO .SUNDAY October 09, 2022 12:00am June 22, 2023 4:59pm REPLACEMET Start: 04-28-2022 End: 04-07-2023 take 1 capsule by mouth every week ergocalciferol 50,000 unit capsule (VITAMIN D2, DRISDOL) Take 1 capsule by mouth one time a week. 4 capsule 11 04/28/2022 04/07/2023 Discontinued Start: 07-31-2019 End: 05-28-2021 take 1 capsule by mouth every week ergocalciferol 50,000 unit capsule (VITAMIN D2, DRISDOL) Take 1 capsule by mouth one time a week. 4 capsule 11 07/01/2020 05/28/2021 Discontinued Comment on above: Take 1 capsule by mo ut one time a week. famotidine 20 mg oral tablet (20 sources) Histamine-2 Receptor Antagonist Start: 10-26-19 End: 04-23-19 24 take 1 tablet by mouth once daily at bedtime famotidine (PEPCID) 20 mg tablet Indications: Gastroesophageal reflux disease with esophagitis without hemorrhage Take 1 tablet by mouth daily at bedtime. 30 tablet 5 10/25/2022 04/07/2023 Discontinued Comment on above: Take 1 tablet by cristina th daily at bedtime. FLUoxetine 20 mg oral capsule (13 sources) Serotonin Reuptake Inhibitor Start: 05-24-19 End: 10-23-19 22 take 1 capsule by mouth once daily FLUoxetine (PROZAC) 20 mg capsule Indications: Bipolar 1 disorder ([facility]) Take 1 capsule by mouth once daily. 30 capsule 2 05/24/2019 10/22/2021 Discontinued Comment on above: Take 1 capsule by mo ut once daily. furosemide 40 mg oral tablet (20 sources) Loop Diuretic Start: 10-12-19 End: 02-08-20 furosemide (LASIX) 40 mg tablet Take by mouth. 10/11/2022 02/08/2024 Discontinued (Changing Therapy/Dosage Form) Start: 10-11-2022 End: 12-09-2023 take 1 tablet by mouth once daily Furosemide 40 mg tablet Discontinued 40 mg PO DAILY 30 October 11, 2022 12:00am June 22, 2023 4:56pm Comment on above: Take 1 tablet by cristina th every afternoon. Take 1 additional ta blet of 40 mg lasix PO daily in the morning for total of 40 mg BID x 4 days. Take 1 tablet by cristina th once daily. 1 tablet two times a day. glimepiride 4 mg oral tablet (20 sources) Sulfonylurea Start: 06-05-19 End: 04-07-19 take 1 tablet by mouth once daily at breakfast glimepiride (AMARYL) 4 mg tablet Indications: Type 2 diabetes mellitus without complication, without long-term current use of insulin (HCC) Take 1 tablet by mouth daily with breakfast. 30 tablet 11 06/04/2020 04/30/2021 Discontinued Start: 04-09-2020 End: 04-17-2020 take 1 tablet by mouth once daily at breakfast glimepiride (AMARYL) 4 mg tablet Indications: Type 2 diabetes mellitus without complication, without long-term current use of insulin (HCC) Take 1 tablet by mouth daily with breakfast. 30 tablet 04/09/2020 04/17/2020 Discontinued Start: 11-03-2016 End: 06-22-2023 take 2 tablets by mouth once daily Glimepiride 2 MG tablet Discontinued 4 mg PO DAILY November 03, 2016 12:00am June 22, 2023 4:59pm Start: 11-03-2016 End: 06-22-2023 take 4 mg by mouth once daily Glimepiride Discontinued 4 MG PO DAILY November 03, 2016 12:00am June 22, 2023 4:59pm Comment on above: Take 1 tablet by cristina th daily with breakfast. glucose 0.45 mg/mg oral gel (5 sources) Start: 04-07-2023 End: 05-22-2023 dextrose (TRUEPLUS) 15 gram/32 mL oral gel Take 32 mL by mouth as needed. 0 04/07/2023 05/22/2023 Discontinued Comment on above: Take 32 mL by mouth as needed. glycerin 2000 mg rectal suppository (20 sources) Non-Standardized Chemical Allergen Start: 05-22-2023 End: 06-21-2023 glycerin ADULT suppository 1 Suppository by RECTAL route as needed. 25 Each 05/22/2023 06/21/2023 Start: 05-19-2023 take 1 dose rectal r oute once daily as needed for constipation glycerin adult rectal suppository Dose = 1 supp, Rectal, Daily, PRN Constipation, 0 Refill(s) Start Date: 05/19/23 Status: Ordered Comment on above: 1 Suppository by REC ROLF route as needed. 1 ml heparin sodium, porcine 5000 unt/ml injection (12 sources) Unfractionated Heparin, Anti-coagulant Star t: 03-17 End: 05-14 inject 1 mL by subcutaneous injection every eight hours heparin 5,000 unit/mL injection Inject 1 mL subcutaneously every 8 hours. 04/07/2023 05/24/2023 Discontinued Comment on above: Inject 1 mL subcutan eously every 8 hours. hydroCHLOROthiazide 25 mg oral tablet (20 sources) Thiazide Diuretic Star t: 10-02 14 End: 09-14 take 1 tablet by mouth once daily Hydrochlorothiazide 25 MG tablet Discontinued 25 mg PO DAILY November 20, 2013 12:00am October 11, 2022 11:05am BP Comment on above: Take 1 tablet by cristina th once daily. hydroCHLOROthiazide 12.5 mg / losartan potassium 100 mg oral tablet (20 sources) Thiazide Diuretic, Angiotensin 2 Receptor Maren Star t: 03-04 End: 03-04 take 1 tablet by mouth once daily Losartan-Hydrochlorothi azide Discontinued 1 TABLET PO DAILY October 14, 2022 12:00am October 14, 2022 1:28pm Start: 10-09-2022 End: 10-11-2022 take 1 tablet by mouth once daily Losartan-Hydrochlorothiazide 50-12.5 mg tablet Discontinued 1 {tbl} PO DAILY October 09, 2022 12:00am October 11, 2022 11:06am BP/ WATER PILL Start: 10-09-2022 End: 10-11-2022 take 1 tablet by mouth once daily Losartan-Hydrochlorothiazide Discontinue d 1 TABLET PO DAILY October 09, 2022 12:00am October 11, 2022 11:06am Start: 09-28-2022 End: 09-28-2023 Losartan-Hydrochlorothiazide 100-12.5 mg tablet Discontinued 1 {tbl} PO DAILY October 14, 2022 12:00am October 14, 2022 1:28pm Start: 05-23-2022 End: 09-28-2022 take 1 tablet by mouth once daily losartan-hydroCHLOROthiazide (HYZAAR) 50-12.5 mg per tablet Take 1 tablet by mouth once daily. 90 tablet 05/23/2022 07/25/2022 Discontinued Comment on above: Take 1 tablet by cristina th once daily. TAKE 1 TABLET BY CRISTINA TH DAILY insulin isophane, human 100 unt/ml injectable suspension (13 sources) Start: inject 1 dose by subcutaneous injection once daily insulin isophane (NPH) human recombinant 100 units/mL subcutaneous suspension Dose : 38 unit(s) =, Subcutaneous, Daily, # 10 mL, 0 Refill(s), Pharmacy: [facility], 155, cm, 04/27/23 19:46:00 EDT, Height, kg, 05/17/23 5:15:00 EDT, Dosing Weight Start Date: 05/19/23 Status: Ordered Start: 04-07-2023 inject 1 dose by sub cutaneous injection once daily insulin isophane (NPH) Dose : 38 unit(s) =, Subcutaneous, Daily, 0 Refill(s) Start Date: 04/07/23 Status: Ordered Start: 04-07-2023 End: 11-18-2023 insulin NPH injection Inject 38 Units subcutaneously once daily. Insulin to be given at the start of tube feeds. Hold insulin if tube feeds stopped or discontinued. Hold if glucose below 100.If blood glucose is less than 70 mg/dL implement hypoglycemia treatment orders and notify provider. 04/07/2023 05/22/2023 Discontinued Comment on above: Inject 38 Units subc utaneously once daily. Insulin to be given at the start of tube feeds. Hold insulin if tube feeds stopped or discontinued. Hold if glucose below 100.If blood glucose is less than 70 mg/dL implement hypoglycemia treatment orders and notify provider. insulin lispro 100 unt/ml injectable solution (20 sources) Insulin Analog Start: 12-06-2023 End: 12-12-2023 insulin lispro (HUMALOG U-100 INSULIN) 100 unit/mL injection Indications: Type 2 diabetes mellitus without complication, without long-term current use of insulin (HCC) Per sliding scale QID, max of nan 14 units q day 10 mL 2 12/07/2023 12/12/2023 Discontinued Start: 05-23-2023 End: 12-06-2023 insulin lispro (HUMALOG U-10 0 INSULIN) 100 unit/mL injection Indications: Type 2 diabetes mellitus without complication, without long-term current use of insulin (HCC) Per sliding scale QID 05/23/2023 12/06/2023 Discontinued Start: 04-07-2023 insulin lispro (Humalog) 100 units/mL injectable solution Sliding Scale, Subcutaneous, TIDM, # 10 mL, 0 Refill(s) Start Date: 04/07/23 Status: Ordered Start: 04-07-2023 End: 05-22-2023 inject 5 [IU] by subcutaneous injection three times daily at mealtime insulin lispro (HUMALOG U-100 INSULIN) 100 unit/mL injection Inject 5 Units subcutaneously three times a day with meals. Hold if not eating a meal 0 04/07/2023 05/22/2023 Discontinued (Other) Comment on above: Inject 5 Units subcu taneously three times a day with meals. Hold if not eating a meal Humalog scale 2 with meals If Blood Glucose (mg/dL) is <110 Give 0 units 111-150 Give 0 units 151-200 Give 2 unit 201-250 Give 4 units 251-300 Give 6 units 301-350 Give 8 units 351-400 Give 10 units >400 Give 10 units and Call physician. Per sliding scale QI D levoFLOXacin 750 mg oral tablet (6 sources) Quinolone Antimicrobial Start: 10-12-19 End: 06-22-19 take 1 tablet by mouth once daily Levofloxacin 750 mg tablet Discontinued 750 mg PO DAILY 7 0 October 11, 2022 12:00am June 22, 2023 4:59pm Comment on above: Take 1 tablet by cristina th every afternoon. losartan potassium 25 mg oral tablet (20 sources) Angiotensin 2 Receptor Maren Start: 02-27-19 take 1 tablet by mouth once daily losartan (COZAAR) 25 mg tablet Indications: Essential hypertension Take 1 tablet by mouth once daily. Take with the 50 mg dose in the afternoon (for a total daily dose of 75 mg.) 30 tablet 5 02/27/2023 Suspended Start: 10-11-2022 End: 01-09-2024 take 1 tablet by mouth once daily Losartan 50 mg tablet Discontinued 50 mg PO DAILY 30 October 11, 2022 12:00am June 22, 2023 4:59pm Comment on above: Take 1 tablet by cristina th every afternoon. Take 1 tablet by cristina th once daily. Take with the 50 mg dose in the afternoon (for a total daily dose of 75 mg.) metFORMIN hydrochloride 500 mg oral tablet (20 sources) Biguanide Start: End: take 1 tablet by mouth four times daily Metformin 500 MG tablet Discontinued 500 mg PO 4 TIMES DAILY November 20, 2013 12:00am June 22, 2023 4:59pm Comment on above: Take 1 tablet by cristina four times daily. morphine sulfate 2 mg/ml oral solution (2 sources) Opioid Agonist Start: morphine 10 mg/5 mL oral solution Dose : 5 mg = 2.5 mL, Nasogastric, q4h, PRN as needed for pain, 0 Refill(s), 127 Start Date: 04/07/23 Status: Ordered Start: 04-07-2023 End: 04-14-2023 take 5 mg enteral route every four hours as needed morphine 10 mg/5 mL solution 2.5 mL by CORPAK route every 4 hours as needed for pain for up to 7 days. 0 04/07/2023 04/14/2023 Active Comment on above: 2.5 mL by CORPAK rou te every 4 hours as needed for pain for up to 7 days. mupirocin 0.02 mg/mg topical ointment (15 sources) RNA Synthetase Inhibitor Antibacterial Start: 03-16-2023 mupirocin (BACTROBAN) 2 % ointment Apply a small amount in each nostril using a cotton swab twice the day before surgery and once the morning of surgery. 22 g 0 03/16/2023 Suspended Start: 10-25-2022 End: 11-19-2022 mupirocin (BACTROBAN) 2 % oi ntment Indications: Open wound of right lower extremity, subsequent encounter Apply to affected area three times daily for 10 days. 30 g 0 11/09/2022 11/19/2022 Active Start: 10-25-2022 End: 10-25-2022 mupirocin (BACTROBAN) 2 % cr eam Indications: Open wound of right lower extremity, subsequent encounter Apply 1 application to affected area three times daily for 10 days. Location: right parker blister 30 g 0 10/25/2022 10/25/2022 Discontinued Comment on above: Apply to affected ar ea three times daily for 10 days. Apply 1 application to affected area three times daily for 10 days. Location: right parker blister Apply a small amount in each nostril using a cotton swab twice the day before surgery and once the morning of surgery. 24 hr nicotine 0.875 mg/hr transdermal system (20 sources) Cholinergic Nicotinic Agonist Start: 06-29-19 End: 02-27-19 apply 1 dose transdermal route every twenty-four hours nicotine (NICODERM CQ) 14 mg/24 hr Indications: Tobacco use current Apply 1 Patch as directed every 24 hours. 28 Patch 06/28/2022 02/27/2023 Discontinued (Other) Start: 06-28-2022 End: 02-27-2023 apply 1 dose transdermal route every twenty-four hours nicotine (NICODERM CQ) 21 mg/24 hr Indications: Tobacco use current Apply 1 Patch as directed every 24 hours. APPLY ONE(1) PATCH DAILY. 28 Patch 06/28/2022 02/27/2023 Discontinued (Other) Start: 06-28-2022 End: 02-27-2023 nicotine (NICODERM CQ) 7 mg/ 24 hr Indications: Tobacco use current Apply 1 Patch as directed every 24 hours. 14 Patch 1 06/28/2022 02/27/2023 Discontinued (Other) Comment on above: Apply 1 Patch as dir ected every 24 hours. APPLY ONE(1) PATCH DAILY. Apply 1 Patch as dir ected every 24 hours. nystatin 458177 unt/ml oral suspension (2 sources) Polyene Antifungal Start: 04-07-2023 End: 04-21-2023 take 1 dose by mouth four times daily nystatin 100,000 units/mL oral suspension Dose : 500,000 unit(s) = 5 mL, Oral, QID, # 140 mL, 0 Refill(s) Start Date: 04/07/23 Stop Date: 04/21/23 Status: Ordered Start: 04-07-2023 End: 04-21-2023 take 5 mL by mouth four times daily nystatin (MYCOSTATIN) 100,000 units/mL oral liquid Take 5 mL by mouth four times daily for 14 days. Swish and swallow. 280 mL 0 04/07/2023 04/21/2023 Active Comment on above: Take 5 mL by mouth f our times daily for 14 days. Swish and swallow. oxyCODONE 18 mg 12 hr extended release oral capsule, abuse-deterrent (11 sources) Opioid Agonist Start: 10-30-2020 End: 06-22-2023 take 1 capsule by mouth twice daily Oxycodone Myristate (Xtampza Er) 18 mg Cap,Sprinkl,Er12hr(Do nt Crush) Discontinued 18 mg PO TWICE A DAY October 30, 2020 12:00am June 22, 2023 4:59pm oxycodone myristate (XTAMPZA ER ORAL) (20 sources) End: 04-07-2023 take 18 mg by mouth twice daily oxycodone myristate (XTAMPZA ER ORAL) Take 18 mg by mouth twice daily. 04/07/2023 Discontinued take 18 mg by mouth twice daily oxycodone myristate (XTAMPZA ER ORAL) Take 18 mg by mouth twice daily. 0 Suspended take 18 mg by mouth twice daily oxycodone myristate (XTAMPZA ER ORAL) Take 18 mg by mouth twice daily. 0 Active Comment on above: Take 18 mg by mouth twice daily. perflutren lipid microspheres 1.3 mL in NaCl (PF) 0.9% 10 mL injection (DEFINITY) (20 sources) Start: 05-23-2022 End: 03-16-2023 perflutren lipid microspheres 1.3 mL in NaCl (PF) 0.9% 10 mL injection (DEFINITY) Start: 05-23-2022 End: 08-22-2023 perflutren lipid microsphere s 1.3 mL in NaCl (PF) 0.9% 10 mL injection (DEFINITY) Start: 10-22-2021 End: 01-21-2023 perflutren lipid microsphere s 1.3 mL in NaCl (PF) 0.9% 10 mL injection (DEFINITY) microencapsulated potassium chloride 20 meq extended release oral tablet (9 sources) Start: 10-11-2022 End: 06-22-2023 Potassium Chloride (Klor-Con M20) 20 mEq tablet,ER particles/crystals Discontinued 20 meq PO DAILY 30 October 11, 2022 12:00am June 22, 2023 4:59pm Comment on above: [facility] predniSONE 50 mg oral tablet (20 sources) Start: 06-26-2023 End: 08-07-2024 predniSONE (DELTASONE) 50 mg take 1 tablet 13, 7 (SEVEN), and 1 hour prior DIRECTED 06/26/2023 08/07/2024 Discontinued Start: 10-11-2022 End: 06-22-2023 take 2 tablets by mouth at breakfast Prednisone 20 mg Tablet Discontinued 40 mg PO WITH BREAKFAST 6 October 11, 2022 12:00am June 22, 2023 4:54pm Start: 10-11-2022 End: 06-22-2023 take 40 mg by mouth at breakfast Prednisone Discontinu ed 40 MG PO WITH BREAKFAST 6 October 11, 2022 12:00am June 22, 2023 4:54pm Start: 10-18-2021 End: 10-09-2022 take 1 tablet by mouth once daily Prednisone 50 mg tablet Discontinued 50 mg PO DAILY 5 0 October 18, 2021 12:00am October 09, 2022 2:48pm Comment on above: Take 50 mg by mouth once daily. take 2 tablets by mo [facility] in the morning propylene glycol 6 mg/ml ophthalmic solution (20 sources) Start: 05-31-2022 End: 07-05-2023 propylene glycoL (SYSTANE BALANCE) 0.6 % drop Indications: Type 2 diabetes mellitus without retinopathy (HCC) , Dry eye syndrome of bilateral lacrimal glands Use 1 Drop in both eyes daily at bedtime. 10 mL 3 05/31/2022 07/05/2023 Discontinued (Other) Start: 05-31-2022 propylene glyc oL (SYSTANE BALANCE) 0.6 % drop Indications: Type 2 diabetes mellitus without retinopathy (HCC) , Dry eye syndrome of bilateral lacrimal glands Use 1 Drop in both eyes daily at bedtime. 10 mL 3 05/31/2022 Active Comment on above: Use 1 Drop in both e yes daily at bedtime. QUEtiapine 25 mg oral tablet (13 sources) Atypical Antipsychotic Start: 05-24-19 End: 10-23-19 take 1 tablet by mouth once daily at bedtime QUEtiapine (SEROQUEL) 25 mg tablet Indications: Bipolar 1 disorder (HCC) Take 1 tablet by mouth daily at bedtime. 30 tablet 2 05/24/2019 10/22/2021 Discontinued Comment on above: Take 1 tablet by cristina th daily at bedtime. 125 ml sodium chloride 9 mg/ml prefilled syringe (20 sources) Start: 10-23-19 End: 08-22-19 sodium chloride 0.9 % (flush) 10 mL (BD POSIFLUSH) temazepam 7.5 mg oral capsule (7 sources) Benzodiazepine Start: 05-22-19 End: 11-18-19 take 2 capsules by mouth at bedtime as needed temazepam (RESTORIL) 7.5 mg capsule Indications: Chronic insomnia Take 2 capsules by mouth at bedtime as needed for up to 180 days. 90 capsule 05/22/2023 05/23/2023 Discontinued Start: 05-19-2023 Restoril 7.5 m g oral capsule Dose : 15 mg = 2 cap(s), Oral, qHS, PRN Sleep, 0 Refill(s), 118 Start Date: 05/19/23 Status: Ordered Comment on above: Take 2 capsules by m outh at bedtime as needed for up to 180 days. Take 15 mg by mouth at bedtime as needed. tiZANidine 4 mg oral tablet (7 sources) Central alpha-2 Adrenergic Agonist Start: take 1 tablet by mouth once daily tiZANidine (ZANAFLEX) 4 mg tablet TAKE 1 TABLET BY MOUTH EVERY NIGHT FOR 28 DAYS 0 02/05/2023 Suspended Comment on above: TAKE 1 TABLET BY CRISTINA TH EVERY NIGHT FOR 28 DAYS traMADol hydrochloride 50 mg oral tablet (20 sources) Opioid Agonist Start: 4 End: take 1 tablet by mouth every eight hours as needed for pain traMADol (ULTRAM) 50 mg tablet Indications: Chronic back pain, unspecified back location, unspecified back pain laterality , Type 2 diabetes mellitus without complication, without long-term current use of insulin (HCC) Take 1 tablet by mouth every 8 hours as needed for pain for up to 14 days. 42 tablet 06/26/2023 08/07/2024 Discontinued (Other) Start: 05-19-2023 End: 06-26-2023 take 1 tablet by mouth every six hours as needed Tramadol 50 mg tablet Active 50 mg PO EVERY 6 HOURS NEEDED June 22, 2023 12:00am pain End: 05-20-2022 take 1 tablet by mouth every twelve hours as needed traMADol (ULTRAM) 50 mg tablet Take 50 mg by mouth twice daily as needed. 05/20/2022 Discontinued (Course of therapy completed) Comment on above: Take 50 mg by mouth twice daily as needed. Take 1 tablet by cristina th every 6 hours as needed for pain for up to 30 days. Take 50 mg by mouth every 6 hours as needed for pain. Problems Active Problems Problem Classification Problem Date Documented Da te Episodic/Chronic Acute cerebrovascular disease (20 sources) Ischemic stroke; Translations: [Cerebral infarction due to unspecified occlusion or stenosis of left middle cerebral artery] Onset: 4 04-05-2023 Chronic Anxiety disorders (5 sources) Anxiety; Translations: [Anxiety disorder, unspecified] 10-14-2022 Chronic Aortic; peripheral; and visceral artery aneurysms (20 sources) Aneurysm of ascending aorta; Translations: [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)] 03-16-2023 Chronic Blindness and vision defects (1 source) Eye / vision finding; Translations: [Unspecified visual disturbance] 10-25-2022 Episodic Cardiac and circulatory congenital anomalies (20 sources) Bicuspid aortic valve; Translations: [Congenital insufficiency of aortic valve] Onset: 3 Resolved: 3 11-09-2012 Chronic Cardiac dysrhythmias (6 sources) Unspecified atrial fibrillation; Translations: [Paroxysmal atrial fibrillation] Chronic Cataract (3 sources) Bilateral age-related cataract; Translations: [Unspecified age-related cataract] Chronic Chronic kidney disease (1 source) Chronic kidney disease stage 3; Translations: [Chronic kidney disease, stage 3 unspecified] Chronic Chronic obstructive pulmonary disease and bronchiectasis (20 sources) Chronic obstructive lung disease; Translations: [Chronic obstructive pulmonary disease, unspecified] Onset: 3 Chronic Comment on above: tobacco abuse 1.25 p pd Chronic ulcer of skin (20 sources) Pressure ulcer of sacral region, unstageable; Translations: [Pressure ulcer, lower back] Onset: 4 04-03-2023 Chronic Complications of surgical procedures or medical care (1 source) Complication of procedure; Translations: [Other postprocedural cardiac functional disturbances following other surgery] Chronic Complications of surgical procedures or medical care (1 source) Atrial fibrillation; Translations: [Other postprocedural complications and disorders of the circulatory system, not elsewhere classified] 06-06-2023 Episodic Congestive heart failure; nonhypertensive (20 sources) Chronic diastolic heart failure; Translations: [Chronic diastolic (congestive) heart failure] Onset: 4 Chronic Coronary atherosclerosis and other heart disease (20 sources) Coronary arteriosclerosis; Translations: [Atherosclerotic heart disease of [place] coronary artery without angina pectoris] 03-20-2023 Chronic Deficiency and other anemia (1 source) Anemia; Translations: [Anemia, unspecified] Episodic Diabetes mellitus with complications (20 sources) Type 2 diabetes mellitus; Translations: [Type 2 diabetes mellitus with diabetic neuropathy, unspecified] Onset: 3 03-24-2020 Chronic Diabetes mellitus without complication (20 sources) Type 2 diabetes mellitus without complication; Translations: [Type 2 diabetes mellitus without complications] Onset: 4 Chronic Diabetes mellitus without complication (4 sources) Metabolic stress hyperglycemia; Translations: [Hyperglycemia, unspecified] 03-20-2023 Episodic Disorders of lipid metabolism (20 sources) Hyperlipidemia; Translations: [Hyperlipidemia, unspecified] Onset: 3 11-09-2012 Chronic E Codes: Adverse effects of medical drugs (1 source) Opioid analgesic adverse reaction; Translations: [Adverse effect of other opioids, initial encounter] Episodic Esophageal disorders (20 sources) Gastroesophageal reflux disease without esophagitis; Translations: [Gastro-esophageal reflux disease without esophagitis] Onset: 2 Chronic Essential hypertension (20 sources) Hypertensive disorder; Translations: [Essential (primary) hypertension] Onset: 3 11-09-2012 Chronic Fever of unknown origin (1 source) Fever; Translations: [Fever, unspecified] Onset: 4 Episodic Glaucoma (2 sources) Preglaucoma, unspecified, bilateral; Translations: [Preglaucoma, unspecified] Chronic Headache; including migraine (1 source) Headache; Translations: [Headache, unspecified headache type] 10-25-2022 Episodic Heart valve disorders (20 sources) Aortic stenosis, non-rheumatic ; Translations: [Nonrheumatic aortic (valve) stenosis] Onset: 9 08-10-2018 Chronic Hyperplasia of prostate (1 source) Benign prostatic hypertrophy without outflow obstruction; Translations: [Benign prostatic hyperplasia without lower urinary tract symptoms] Chronic Hypertension with complications and secondary hypertension (3 sources) Hypertensive heart failure; Translations: [Hypertensive heart disease with heart failure] Chronic Intestinal obstruction without hernia (15 sources) Intestinal obstruction; Translations: [Ileus, unspecified] Onset: 4 Episodic Late effects of cerebrovascular disease (12 sources) Hemiplegia of nondominant side as late effect of cerebrovascular disease; Translations: [Hemiplegia and hemiparesis following cerebral infarction affecting left non-dominant side] Onset: 4 Chronic Malaise and fatigue (3 sources) Fatigue; Translations: [Other fatigue] Episodic Miscellaneous mental health disorders (3 sources) Chronic insomnia; Translations: [Psychophysiologic insomnia] 05-22-2023 Chronic Mood disorders (20 sources) Bipolar I disorder; Translations: [Bipolar disorder, unspecified] Onset: 3 11-09-2012 Chronic Mycoses (1 source) Candidiasis of mouth; Translations: [Candidal stomatitis] Episodic Nutritional deficiencies (1 source) Vitamin D deficiency; Translations: [Vitamin D deficiency, unspecified] Chronic Occlusion or stenosis of precerebral arteries (3 sources) Bilateral stenosis of carotid arteries; Translations: [Occlusion and stenosis of bilateral carotid arteries] Onset: 5 08-07-2024 Chronic Osteoarthritis (2 sources) Osteoarthritis; Translations: [Unspecified osteoarthritis, unspecified site] Onset: 5 Chronic Other aftercare (1 source) Drug therapy finding; Translations: [Other jail (current) drug therapy] Episodic Other aftercare (2 sources) Long-term current use of insulin; Translations: [care home (current) use of insulin] Episodic Other aftercare (1 source) Long-term current use of aspirin; Translations: [superintendent terminal (current) use of aspirin] Episodic Other aftercare (2 sources) Long-term current use of drug therapy; Translations: [Other jail (current) drug therapy] Episodic Other aftercare (2 sources) Long-term current use of anticoagulant; Translations: [care home (current) use of anticoagulants] Episodic Other and ill-defined heart disease (20 sources) Left ventricular hypertrophy; Translations: [Cardiomegaly] 11-30-2012 Chronic Other circulatory disease (1 source) H/O: major vascular surgery; Translations: [Presence of other vascular implants and grafts] 06-06-2023 Chronic Other circulatory disease (1 source) Abnormal peripheral pulse; Translations: [Other specified symptoms and signs involving the circulatory and respiratory systems] 12-05-2022 Episodic Other circulatory disease (1 source) Disorder of respiratory system; Translations: [Other specified symptoms and signs involving the circulatory and respiratory systems] Episodic Other circulatory disease (1 source) History of cerebrovascular accident; Translations: [Personal history of transient ischemic attack (TIA), and cerebral infarction without residual deficits] 06-06-2023 Episodic Other connective tissue disease (1 source) Cramp in lower limb; Translations: [Cramp and spasm] 10-25-2022 Episodic Other connective tissue disease (2 sources) H/O: arthrodesis; Translations: [Arthrodesis status] Episodic Other diseases of veins and lymphatics (1 source) Vascular insufficiency; Translations: [Venous insufficiency (chronic) (peripheral)] 12-05-2022 Episodic Other ear and sense organ disorders (1 source) Impacted cerumen in left ear; Translations: [Impacted cerumen, left ear] 08-07-2024 Episodic Other ear and sense organ disorders (1 source) Acute otitis externa of left ear; Translations: [Unspecified acute noninfective otitis externa, left ear] 08-07-2024 Episodic Other ear and sense organ disorders (1 source) Acute otitis externa; Translations: [Unspecified acute noninfective otitis externa, unspecified ear] 08-13-2024 Episodic Other endocrine disorders (20 sources) Male hypogonadism; Translations: [Testicular hypofunction] Onset: 3 01-04-2013 Chronic Other eye disorders (2 sources) Disorder of lacrimal gland; Translations: [Dry eye syndrome of bilateral lacrimal glands] Episodic Other gastrointestinal disorders (1 source) Drug-induced constipation; Translations: [Drug induced constipation] Episodic Other inflammatory condition of skin (1 source) Erythema; Translations: [Erythematous condition, unspecified] 11-30-2022 Episodic Other injuries and conditions due to external causes (1 source) Blister; Translations: [Other injury of unspecified body region, initial encounter] 12-05-2022 Episodic Other lower respiratory disease (4 sources) Dyspnea; Translations: [Dyspnea, unspecified] Episodic Other lower respiratory disease (1 source) Cough; Translations: [Cough] 12-28-2020 Episodic Other lower respiratory disease (1 source) Multiple nodules of lung; Translations: [Other nonspecific abnormal finding of lung field] 09-09-2024 Episodic Other lower respiratory disease (1 source) Other nonspecific abnormal finding of lung field; Translations: [Multiple lung nodules] Onset: 5 Episodic Other nervous system disorders (20 sources) Ulnar neuropathy of left arm; Translations: [Lesion of ulnar nerve, left upper limb] Onset: 3 01-07-2013 Chronic Other nervous system disorders (20 sources) Cognitive deficit in communication skills; Translations: [Cognitive communication deficit] Onset: 4 04-04-2023 Chronic Other nervous system disorders (2 sources) Chronic pain; Translations: [Other chronic pain] Chronic Other nervous system disorders (3 sources) Chronic back pain greater than three months duration 05-07-2013 Chronic Other nervous system disorders (20 sources) Postoperative pain ; Translations: [Other acute postprocedural pain] 03-20-2023 Episodic Other non-epithelial cancer of skin (1 source) History of malignant neoplasm of skin; Translations: [Personal history of other malignant neoplasm of skin] Episodic Other non-traumatic joint disorders (2 sources) Pain in wrist; Translations: [Pain in right wrist] 05-29-2023 Episodic Other non-traumatic joint disorders (1 source) Hip pain; Translations: [Pain in left hip] 07-04-2022 Episodic Other non-traumatic joint disorders (1 source) Pain of left wrist; Translations: [Pain in left wrist] 04-15-2020 Episodic Other nutritional; endocrine; and metabolic disorders (20 sources) Body mass index 40+ - severely obese; Translations: [Morbid (severe) obesity due to excess calories] Onset: 3 03-24-2020 Chronic Other nutritional; endocrine; and metabolic disorders (20 sources) Morbid obesity; Translations: [Morbid (severe) obesity due to excess calories] Onset: 4 10-30-2020 Chronic Comment on above: bmi 51 Other nutritional; endocrine; and metabolic disorders (20 sources) Severe obesity; Translations: [Morbid (severe) obesity due to excess calories] Onset: 4 04-05-2023 Chronic Other nutritional; endocrine; and metabolic disorders (3 sources) Obesity 05-07-2013 Chronic Other nutritional; endocrine; and metabolic disorders (1 source) Morbid (severe) obesity due to excess calories; Translations: [Morbid obesity] 06-24-2023 Chronic Other screening for suspected conditions (not mental disorders or infectious disease) (4 sources) Encounter for screening for malignant neoplasm of respiratory organs; Translations: [Encounter for screening for malignant neoplasm of prostate] Onset: 4 Episodic Other skin disorders (1 source) Ingrowing toenail; Translations: [Ingrowing nail] 12-05-2022 Episodic Other upper respiratory infections (1 source) Acute maxillary sinusitis; Translations: [Acute maxillary sinusitis, unspecified] 02-08-2024 Episodic Paralysis (20 sources) Right hemiparesis; Translations: [Hemiplegia, unspecified affecting right dominant side] Onset: 4 04-05-2023 Chronic [place]-; endo-; and myocarditis; cardiomyopathy (except that caused by tuberculosis or sexually transmitted disease) (1 source) Pericardial effusion - noninflammatory; Translations: [Other pericardial effusion (noninflammatory)] Episodic Peripheral and visceral atherosclerosis (20 sources) Peripheral vascular disease; Translations: [Peripheral vascular disease, unspecified] Onset: 3 11-07-2020 Chronic Phlebitis; thrombophlebitis and thromboembolism (2 sources) Acute thrombosis of superficial vein of right upper limb; Translations: [Acute embolism and thrombosis of superficial veins of right upper extremity] Episodic Residual codes; unclassified (20 sources) Sleep apnea; Translations: [Sleep apnea, unspecified] Onset: 3 11-09-2012 Chronic Residual codes; unclassified (20 sources) Obstructive sleep apnea syndrome; Translations: [Obstructive sleep apnea (adult) (pediatric)] Onset: 3 10-30-2020 Chronic Residual codes; unclassified (20 sources) Desaturation of blood; Translations: [Idiopathic sleep related nonobstructive alveolar hypoventilation] Onset: 2 Chronic Residual codes; unclassified (1 source) Edema; Translations: [Edema, unspecified] Episodic Residual codes; unclassified (5 sources) Tobacco user; Translations: [Tobacco use] Episodic Residual codes; unclassified (2 sources) Bilateral lower limb edema; Translations: [Localized edema] Episodic Residual codes; unclassified (1 source) Insomnia; Translations: [Insomnia, unspecified] Episodic Residual codes; unclassified (2 sources) Localized edema; Translations: [Localized edema] Episodic Residual codes; unclassified (1 source) Tobacco use; Translations: [Tobacco use current] Onset: 5 Episodic Respiratory failure; insufficiency; arrest (adult) (2 sources) Acute respiratory failure; Translations: [Acute respiratory failure with hypoxia] Episodic Skin and subcutaneous tissue infections (4 sources) Abscess of lower limb; Translations: [Cutaneous abscess of right lower limb] 10-25-2022 Episodic Spondylosis; intervertebral disc disorders; other back problems (20 sources) Degeneration of lumbar intervertebral disc; Translations: [Other intervertebral disc degeneration, lumbar region] Onset: 3 Chronic Substance-related disorders (20 sources) Nicotine dependence; Translations: [Nicotine dependence, unspecified, uncomplicated] Onset: 4 04-05-2023 Chronic Superficial injury; contusion (2 sources) Blister of foot; Translations: [Blister (nonthermal), right foot, initial encounter] 11-30-2022 Episodic Unclassified (3 sources) Bipolar (qualifier value) 05-07-2013 Unclassified (1 source) Patient encounter status 09-09-2024 Past or Other Problems Problem Classification Problem Date Documented Da te Episodic/Chronic Abdominal pain (20 sources) Right flank pain; Translations: [Unspecified abdominal pain] Onset: 4 05-24-2020 Episodic Administrative/social admission (20 sources) Discharge status; Translations: [Encounter for administrative examinations, unspecified] Onset: 4 03-16-2023 Episodic Coagulation and hemorrhagic disorders (20 sources) Thrombocytopenic disorder; Translations: [Thrombocytopenia, unspecified] Onset: 4 Resolved: 4 03-25-2023 Chronic Fluid and electrolyte disorders (20 sources) Hypervolemia; Translations: [Fluid overload, unspecified] Onset: 4 Resolved: 4 03-21-2023 Episodic Genitourinary symptoms and ill-defined conditions (20 sources) Microalbuminuria; Translations: [Proteinuria, unspecified] Onset: 9 08-03-2018 Episodic Immunizations and screening for infectious disease (20 sources) Patient encounter status; Translations: [Encounter for immunization] Onset: 4 Episodic Open wounds of extremities (20 sources) Open wound of lower limb; Translations: [Unspecified open wound, right lower leg, subsequent encounter] Onset: 4 10-25-2022 Episodic Open wounds of extremities (20 sources) Open wound of left great toe; Translations: [Unspecified open wound of left great toe without damage to nail, initial encounter] Onset: 4 03-25-2023 Episodic Other aftercare (20 sources) Insulin dose changed; Translations: [superintendent terminal (current) use of insulin] Onset: 4 03-25-2023 Episodic Other aftercare (2 sources) superintendent terminal (current) use of insulin; Translations: [Controlled type 2 diabetes mellitus with diabetic neuropathy, with long-term current use of insulin (HCC)] Onset: 4 Episodic Other aftercare (1 source) superintendent terminal (current) use of anticoagulants; Translations: [Chronic anticoagulation] Onset: 5 Episodic Other connective tissue disease (20 sources) Tendonitis of left wrist; Translations: [Other enthesopathies, not elsewhere classified] Onset: 4 Resolved: 3 05-14-2013 Episodic Other connective tissue disease (20 sources) Other symptoms and signs involving the musculoskeletal system; Translations: [Other musculoskeletal symptoms referable to limbs] Onset: 4 03-25-2023 Episodic Other gastrointestinal disorders (20 sources) Dysphagia; Translations: [Dysphagia, unspecified] Onset: 4 04-05-2023 Episodic Other lower respiratory disease (20 sources) Restrictive lung disease; Translations: [Other disorders of lung] Onset: 1 11-12-2010 Episodic Other lower respiratory disease (20 sources) Respiratory insufficiency; Translations: [Other abnormalities of breathing] Onset: 4 Resolved: 4 03-25-2023 Episodic Other nervous system disorders (20 sources) H/O: Disorder; Translations: [Personal history of other diseases of the nervous system and sense organs] Onset: 4 02-07-2013 Episodic Other nervous system disorders (20 sources) Slurred speech; Translations: [Slurred speech] Onset: 4 03-21-2023 Episodic Other nervous system disorders (20 sources) Abnormal gait; Translations: [Other abnormalities of gait and mobility] Onset: 4 03-25-2023 Episodic Other nervous system disorders (20 sources) Coordination problem; Translations: [Other lack of coordination] Onset: 4 04-05-2023 Episodic Other nervous system disorders (20 sources) Dysarthria; Translations: [Dysarthria and anarthria] Onset: 4 04-05-2023 Episodic Other conditions (20 sources) Primary sleep apnea of ; Translations: [Primary sleep apnea of ] Onset: 4 Resolved: 5 03-28-2023 Episodic Other skin disorders (20 sources) Finding of integrity of skin; Translations: [Unspecified skin changes] Onset: 4 03-25-2023 Episodic Pleurisy; pneumothorax; pulmonary collapse (20 sources) Atelectasis; Translations: [Atelectasis] Onset: 4 04-05-2023 Episodic Pneumonia (except that caused by tuberculosis or sexually transmitted disease) (20 sources) Pneumonia; Translations: [Pneumonia, unspecified organism] Onset: 3 10-09-2022 Episodic Residual codes; unclassified (20 sources) Finding of activity of daily living; Translations: [Other general symptoms and signs] Onset: 4 04-05-2023 Episodic Residual codes; unclassified (20 sources) Tube feeding diet; Translations: [Other specified health status] Onset: 4 04-06-2023 Episodic Respiratory failure; insufficiency; arrest (adult) (20 sources) Ventilator finding; Translations: [Dependence on respirator [ventilator] status] Onset: 4 Resolved: 4 03-20-2023 Chronic Spondylosis; intervertebral disc disorders; other back problems (20 sources) Chronic back pain ; Translations: [Dorsalgia, unspecified] Onset: 3 Episodic Results Test Name Value Interpretation Reference Range Facility OV 11-05-2024 CNOV Office Visit (VASSWS ) -- KIEL CATHERINE ([id number]) 1960 M Date Time Provider Department 11/05/24 1:30 PM FRANKLIN ESPINAL During your visit today, we recorded the following information about you: Pulse Blood pressure 69/minute 119/74 Franklin Espinal DO 11/05/2024 3:24 PM [facility] [place] DEPARTMENT OF VASCULAR SURGERY OUTPATIENT VISIT DATE November 05, 2024 OUTPATIENT VISIT TYPE CONSULTATION SERVICE DATE: 11/05/2024 SERVICE TIME: 1:42 PM PRIMARY CARE PHYSICIAN: Alyson Arthur MD REFERRING PROVIDER: Angela Schmid [id number] [facility] [id number] Consult requested for an opinion regarding the evaluation and treatment of the above. My final impression and recommendations will be communicated back to the requesting physician by way of the shared medical record or letter via US mail. CHIEF COMPLAINT: Peripheral arterial disease, carotid artery stenosis HISTORY OF PRESENT ILLNESS: Vascular consultation at the request of Dr. Angela Schmid. A copy of this consultation note will be provided to the requesting physician by way of shared Medical record or letter to requesting physician via US mail. Mr. Catherine is a 64 year old male who is seen today for peripheral arterial disease and carotid artery stenosis. He has a history of aortic valve surgery in March 2023. He was found to have right arm and leg weakness. He is in a wheelchair. Denies claudication. Does admit to bilateral lower extremity burning pain in his feet. He still has limited function of his right side after stroke. PAST MEDICAL HISTORY Diagnosis Date Acute ischemic left MCA stroke ([facility]) 03/22/2023 Anxiety Aortic valve stenosis, nonrheumatic Atrial septal defect and mitral stenosis ([facility]) Bicuspid aortic valve ([facility]) Bipolar 1 disorder ([facility]) Chronic obstructive pulmonary disease (COPD) ([facility]) Coronary artery disease Degenerative disc disease sees Dr. Sellers Diabetic neuropathy ([facility]) DM (diabetes mellitus) ([facility]) HTN (hypertension) Hyperkalemia Hyperlipidemia Hypogonadism male LVH (left ventricular hypertrophy) Morbid obesity ([facility]) MANISH on CPAP Pain management Dr. Sellers PAST SURGICAL HISTORY Procedure Laterality Date BACK SURGERY HX fusion- lumbar CARPAL TUNNEL both HEART SURGERY HX 03/20/2023 S/p 03/20/2023 AVR (27 Epic plus) and Ascending repair (28 hemishield) PAST SURGICAL HISTORY OF left shouder surgery PAST SURGICAL HISTORY OF nasal passages clearing for sleep apnea PAST SURGICAL HISTORY OF 02/13/1981 ORIF right ankle PAST SURGICAL HISTORY OF 04/03/2013 left ulnar nerve decompression SOCIAL HISTORY: SOCIAL HISTORY[1] FAMILY HISTORY Problem Relation Age of Onset Diabetes Father 2011 with pneumonia other (Dementia) Father Heart Mother CABG 4. Diabetes Sister Ischemic Heart Disease Brother other (Myocardial infarc) Brother Fatal [place] No Ocular Disease No Family History MEDICATIONS: XTAMPZA ER 13.5 mg CSpT Take 1 capsule Twice a day for 28 Days docusate sodium (COLACE) 100 mg capsule Take 1 capsule by mouth two times a day. pregabalin (LYRICA) 100 mg capsule Take 1 capsule by mouth once daily for 180 days. pregablin (LYRICA) 200 mg capsule Take 1 capsule by mouth daily at bedtime for [address] (PROTONIX) 40 mg tablet Take 1 tablet by mouth daily before breakfast. Take on empty stomach, 1/2 hr before meal. metoprolol tartrate 37.5 mg tab Take 1 tablet by mouth every 12 hours. traZODone (DESYREL) 50 mg tablet Take 1 tablet by mouth daily at bedtime. insulin aspart U-100 (NOVOLOG FLEXPEN U-100 INSULIN) 100 unit/mL (3 mL) pen Use for sliding scale as directed with meals Blood sugar 0-150, no coverage; 151- 200, 2 units; 201- 250 4 units; 251- 300 6 units 301- 350 8 units, > 351 10 units bumetanide (BUMEX) 1 mg tablet Take 2 tablets by mouth two times a day. insulin glargine (LANTUS SOLOSTAR U-100 INSULIN) 100 unit/mL (3 mL) Inject 22 Units subcutaneously daily at bedtime. albuterol HFA (PROVENTIL HFA, VENTOLIN HFA) 90 mcg/actuation inhaler Inhale 2 puffs as instructed every 4 hours as needed for wheezing/shortness of breath. ammonium lactate (LAC-HYDRIN) 12 % cream Apply to affected area as needed for dry skin. apixaban (ELIQUIS) 5 mg tab(s) Take 1 tablet by mouth two times a day. flash glucose scanning reader (FREESTYLE ANAHI 2 READER) DMII, insulin requiring. Testing 3-5 times q day amLODIPine (NORVASC) 5 mg tablet Take 1 tablet by mouth once daily. atorvastatin (LIPITOR) 10 mg tablet Take 1 tablet by mouth daily at bedtime. budesonide-formoterol (SYMBICORT) 80-4.5 mcg/actuation inhaler Inhale 2 Puffs as instructed two times a day. flash glucose sensor (FREESTYLE ANAHI 2 SENSOR) kit DMII, insulin requiring. Testing 3-5 times q day insulin needles, DISPOSABLE, (PEN NEEDLE) 31 (more content not included)... Normal [facility] PVR ANK PRESS SOY VAS LABon 10-30-2024 PVR ANK PRESS SOY VAS LAB Non-Invasive Vascular Laboratory [facility] Lower Extremity Arterial Physiology Study Bilateral/Complete Date of service/time: 10/30/2024 1:30:20 PM Name: MR. KIEL CATHERINE Date of : 1960 Age: 64 years Gender: M Clinical Indication Decreased pulses. TECHNIQUE -------- An arterial physiological examination was performed, including measurement of blood pressures using continuous wave Doppler and recording of plethysmographic with or without Doppler waveforms at the below-mentioned limb segments. FINDINGS -------- RIGHT SIDE AT REST Right Doppler Waveforms Dorsalis pedis: Monophasic. Post tibial: Multiphasic. Right Pressures Brachial: 116 mmHg Ankle dorsalis pedis: 98 mmHg LAMONT: 0.81 Ankle posterior tibial: 116 mmHg LAMONT: 0.96 Right PVR Waveforms Ankle: Normal. Transmetatarsal: Mildly dampened. Digit: Mildly dampened. LEFT SIDE AT REST Left Doppler Waveforms Dorsalis pedis: Multiphasic. Post tibial: Multiphasic. Left Pressures Brachial: 121 mmHg Ankle dorsalis pedis: 108 mmHg LAMONT: 0.89 Ankle posterior tibial: 114 mmHg LAMONT: 0.94 Left PVR Waveforms Ankle: Normal. Transmetatarsal: Mildly dampened. Digit: Mildly dampened. IMPRESSION Compared to prior study of 12/22/2022, Right LAMONT was .87, left LAMONT was 1.03. RIGHT SIDE Resting right ankle brachial index: 0.96 Normal ankle brachial index at rest in the right leg. Right ankle: Normal at rest. LEFT SIDE Resting left ankle brachial index: 0.94 Normal ankle brachial index at rest in the left leg. Left ankle: Normal at rest. Technologist: Krystyna Montalvo T Ordering physician: ANGELA SCHMID Interpreting physician: Sumit Johnston MD, BURT Final [employer] [facility] Image : [id number] See Link below for Image Normal [facility] US CAROTID ARTERIES SOY VAS LABon 10-30-2024 US CAROTID ARTERIES SOY VAS LAB Non-Invasive Vascular Laboratory [facility] Carotid Duplex Bilateral/Complete Date of service/time: 10/30/2024 1:52:29 PM Name: MR. KIEL CATHERINE Date of : 1960 Age: 64 years Gender: M Clinical Indication Follow-up study on a patient with known carotid disease. TECHNIQUE -------- A carotid duplex ultrasound examination was performed, including grayscale imaging and color Doppler and spectral Doppler examination of the below mentioned arteries. FINDINGS -------- RIGHT SIDE Common carotid artery: Origin: PSV: 87 cm/s. EDV: 15 cm/s. Proximal: PSV: 74 cm/s. EDV: 15 cm/s. Mid: PSV: 100 cm/s. EDV: 19 cm/s. Distal: PSV: 52 cm/s. EDV: 11 cm/s. Mild heterogeneous plaque from mid to distal. Internal carotid artery: Origin: PSV: 91 cm/s. EDV: 14 cm/s. Proximal: PSV: 90 cm/s. EDV: 19 cm/s. Mid: PSV: 77 cm/s. EDV: 21 cm/s. Distal: PSV: 70 cm/s. EDV: 22 cm/s. Moderate heterogeneous plaque at origin. ICA/CCA Ratio: 1.8 External carotid artery: Proximal: PSV: 113 cm/s. EDV: 17 cm/s. Subclavian artery: Proximal: PSV: 189 cm/s. EDV: 0 cm/s. Innominate artery: PSV: 128 cm/s. EDV: 0 cm/s. Vertebral artery: PSV: 47 cm/s. EDV: 11 cm/s. LEFT SIDE Common carotid artery: Proximal: PSV: 98 cm/s. EDV: 12 cm/s. Mid: PSV: 127 cm/s. EDV: 20 cm/s. Distal: PSV: 82 cm/s. EDV: 19 cm/s. Mild heterogeneous plaque at distal. Internal carotid artery: Origin: PSV: 81 cm/s. EDV: 12 cm/s. Proximal: PSV: 60 cm/s. EDV: 15 cm/s. Mid: PSV: 50 cm/s. EDV: 15 cm/s. Distal: PSV: 57 cm/s. EDV: 17 cm/s. Moderate heterogeneous irregular plaque from origin to proximal. ICA/CCA Ratio: 1.0 External carotid artery: Proximal: PSV: 161 cm/s. EDV: 0 cm/s. Subclavian artery: Proximal: PSV: 197 cm/s. EDV: 0 cm/s. Vertebral artery: PSV: 34 cm/s. EDV: 7 cm/s. IMPRESSION Please note: the new carotid interpretation criteria are used as recommended by [facility]. Technically difficult exam due to patient's body habitus. When compared with the prior study, of 12/22/2022 no significant change is noted on the right side and no significant change is noted on the left side. RIGHT SIDE Common carotid artery: Plaque visualized without evidence of hemodynamically significant stenosis. Internal carotid artery: <50% stenosis consistent with mild carotid artery disease. Tortuous vessel from proximal to mid . External carotid artery: Patent. Vertebral artery: Patent and antegrade flow noted. Innominate artery: Patent. Subclavian artery: Turbulent flow noted, cannot rule out more proximal subclavian artery stenosis. May wish other means of evaluation. LEFT SIDE Common carotid artery: Plaque visualized without evidence of hemodynamically significant stenosis. Internal carotid artery: <50% stenosis consistent with mild carotid artery disease. External carotid artery: Patent. Vertebral artery: Patent and antegrade flow noted. Subclavian artery: Patent. Technologist: Krystyna Montalvo T Ordering physician: ANGELA SCHMID Interpreting physician: Sumit Johnston MD, BURT Final [employer] [facility] Image : [id number] See Link below for Image Normal [facility] [place] 09-27-2024 TODDN Telephone ([employer]) -- KIEL CATHERINE ([id number]) 1960 M Date Time Provider Department 09/27/24 FRANKLIN ESPINAL During your visit today, we recorded the following information about you: Opal Mccann RN 09/27/2024 7:51 AM Signed Please call patient to schedule vascular testing prior to appt with Dr. Espinal He is scheduled 10/01/24 Thank you Allergies As of Date: 09/27/2024 Noted Allergy Reaction IODINATED CONTRAST MEDIA 03/16/2023 8 - GI Upset 14 - Other: See Comments Comments: Hypotension, temporary SOB LISINOPRIL 12/01/2017 14 - Other: See Comments Comments: Hyperkalemia PENICILLINS 10/29/2010 2 - Rash FLONASE (FLUTICASONE PROPIONATE) 10/18/2021 14 - Other: See Comments Comments: Nose bleeds Date Reviewed: 09/09/2024 Reviewed by: Amauri Jo APRN.GUEST HISTORY CLERK - Fully Assessed Reason for Visit: Appointment [186] Cmt: Needs testing Prescriptions as of 10/02/2024 - docusate sodium (COLACE) 100 mg capsule Take 1 capsule by mouth two times a day. - pregabalin (LYRICA) 100 mg capsule Take 1 capsule by mouth once daily for 180 days. - pregablin (LYRICA) 200 mg capsule Take 1 capsule by mouth daily at bedtime for 180 days. - pantoprazole DR (PROTONIX) 40 mg tablet Take 1 tablet by mouth daily before breakfast. Take on empty stomach, 1/2 hr before meal. - metoprolol tartrate 37.5 mg tab Take 1 tablet by mouth every 12 hours. - traZODone (DESYREL) 50 mg tablet Take 1 tablet by mouth daily at bedtime. - insulin aspart U-100 (NOVOLOG FLEXPEN U-100 INSULIN) 100 unit/mL (3 mL) pen Use for sliding scale as directed with meals Blood sugar 0-150, no coverage; 151- 200, 2 units; 201- 250 4 units; 251- 300 6 units 301- 350 8 units, > 351 10 units - bumetanide (BUMEX) 1 mg tablet Take 2 tablets by mouth two times a day. - insulin glargine (LANTUS SOLOSTAR U-100 INSULIN) 100 unit/mL (3 mL) Inject 22 Units subcutaneously daily at bedtime. - albuterol HFA (PROVENTIL HFA, VENTOLIN HFA) 90 mcg/actuation inhaler Inhale 2 puffs as instructed every 4 hours as needed for wheezing/shortness of breath. - ammonium lactate (LAC-HYDRIN) 12 % cream Apply to affected area as needed for dry skin. - apixaban (ELIQUIS) 5 mg tab(s) Take 1 tablet by mouth two times a day. - flash glucose scanning reader (FREESTYLE ANAHI 2 READER) DMII, insulin requiring. Testing 3-5 times q day - amLODIPine (NORVASC) 5 mg tablet Take 1 tablet by mouth once daily. - atorvastatin (LIPITOR) 10 mg tablet Take 1 tablet by mouth daily at bedtime. - budesonide-formoterol (SYMBICORT) 80-4.5 mcg/actuation inhaler Inhale 2 Puffs as instructed two times a day. - flash glucose sensor (FREESTYLE ANAHI 2 SENSOR) kit DMII, insulin requiring. Testing 3-5 times q day - ipratropium-albuterol (DUONEB) 0.5 mg-3 mg(2.5 mg base)/3 mL nebu Inhale 3 mL as instructed four times daily. - insulin needles, DISPOSABLE, (PEN NEEDLE) 31 gauge x 5/16 Use one needle per dose. 4per day. - MULTIVITAMIN-FERROUS FUMARATE-FOLIC ACID 18 MG-400 MCG TABLET Take 1 tablet by mouth daily with breakfast. - Melatonin 5 mg cap Take by mouth. - acetaminophen (TYLENOL) 650 mg/20.3 mL soln 20.3 mL by ORAL/FEEDING TUBE route every 4 hours as needed for pain. Do not exceed 5 doses in 24 hours. - aspirin 81 mg chewable tablet 1 tablet by CORPAK route once daily. - magnesium hydroxide (MOM) 400 mg/5 mL suspension 30 mL by CORPAK route every 6 hours as needed. Meds Comments as of 04/29/2014: 04/29/14 - Patient states he is on a 50 mg pain patch but does not know the name. Nitza Guthrie Ma Problem List As Of Date 09/27/2024 Noted Resolved Restrictive lung disease [J98.4] 11/12/2010 MANISH on CPAP [G47.33] 11/09/2012 Bicuspid aortic valve (HCC) [Q23.81] 11/09/2012 Controlled type 2 diabetes mellitus with diabet*11/09/2012 Hyperlipidemia [E78.5] 11/09/2012 Hypertension [I10] 11/09/2012 DDD (degenerative disc disease), lumbar [M51.36*11/09/2012 Bipolar 1 disorder (HCC) [F31.9] 11/09/2012 Morbid obesity with BMI of 50.0-59.9, adult (HC*11/09/2012 LVH (left ventricular hypertrophy) [I51.7] Atrial septal defect and mitral stenosis [Q21.1* 11/30/2012 Chronic bronchitis, simple [J41.0] 12/07/2012 Hypogonadism male [E29.1] 01/04/2013 Ulnar neuropathy of left upper extremity [G56.2*01/07/2013 Tendinitis of left wrist [M77.8] 05/14/2013 05/20/2022 Microalbuminuria [R80.9] 08/03/2018 Severe aortic stenosis [I35.0] 08/10/2018 Nocturnal oxygen desaturation [G47.34] 10/23/2021 GERD without esophagitis [K21.9] 10/23/2021 Peripheral vascular disease (HCC) [I73.9] 12/06/2022 Chronic back pain [M54.9, G89.29] 09/28/2022 Diagnosed: 02/21/2023 Chronic obstructive pulmonary disease (HCC) [J4*10/11/2022 Diagnosed: 02/21/2023 History of disease [Z87.898] 02/21/2023 Diagnosed: 02/21/2023 Class 3 severe obesity with body mass index (BM* (more content not included)... Normal [facility] [place] 09-10-2024 TREVOR Telephone (AGCARDPOB ) -- KIEL CATHERINE ([id number]) 1960 M Date Time Provider Department 09/10/24 KATHY COLBERT During your visit today, we recorded the following information about you: Noni Ring 09/10/2024 3:11 PM Signed Spouse, Shweta, contacted [facility] stating patient was received instructions from LCS director data processing, Amauri Jo CNP, to follow up with a art class model and possibly vascular specialist. Patient is wanting to continue cardiology care under Kathy Colbert CNP. Patient last saw Gemma 05/23/22. PSS notified patient that she is no longer at [facility] but would send a message seeing if she is willing to see him or if he needs to establish with an MD. Please contact spouse to advise ph. [phone] . Philippe Singletary 09/11/2024 12:57 PM Signed LVM and scheduled overdue follow up for 12/17/24 at 3:[address] Valente in [place]. Thanks, Philippe Singletary Allergies As of Date: 09/10/2024 Noted Allergy Reaction IODINATED CONTRAST MEDIA 03/16/2023 8 - GI Upset 14 - Other: See Comments Comments: Hypotension, temporary SOB LISINOPRIL 12/01/2017 14 - Other: See Comments Comments: Hyperkalemia PENICILLINS 10/29/2010 2 - Rash FLONASE (FLUTICASONE PROPIONATE) 10/18/2021 14 - Other: See Comments Comments: Nose bleeds Date Reviewed: 09/09/2024 Reviewed by: Amauri Jo APRN.CNP - Fully Assessed Reason for Visit: Appointment [186] Prescriptions as of 09/11/2024 - insulin aspart U-100 (NOVOLOG FLEXPEN U-100 INSULIN) 100 unit/mL (3 mL) pen Use for sliding scale as directed with meals Blood sugar 0-150, no coverage; 151- 200, 2 units; 201- 250 4 units; 251- 300 6 units 301- 350 8 units, > 351 10 units - bumetanide (BUMEX) 1 mg tablet Take 2 tablets by mouth two times a day. - insulin glargine (LANTUS SOLOSTAR U-100 INSULIN) 100 unit/mL (3 mL) Inject 22 Units subcutaneously daily at bedtime. - albuterol HFA (PROVENTIL HFA, VENTOLIN HFA) 90 mcg/actuation inhaler Inhale 2 puffs as instructed every 4 hours as needed for wheezing/shortness of breath. - traZODone (DESYREL) 50 mg tablet Take 1 tablet by mouth daily at bedtime. - pregabalin (LYRICA) 100 mg capsule Take 1 capsule by mouth once daily for 90 days. - ammonium lactate (LAC-HYDRIN) 12 % cream Apply to affected area as needed for dry skin. - apixaban (ELIQUIS) 5 mg tab(s) Take 1 tablet by mouth two times a day. - docusate sodium (COLACE) 100 mg capsule Take 1 capsule by mouth two times a day. - pantoprazole DR (PROTONIX) 40 mg tablet Take 1 tablet by mouth daily before breakfast. Take on empty stomach, 1/2 hr before meal. - metoprolol tartrate 37.5 mg tab Take 1 tablet by mouth every 12 hours. - Pregabalin (LYRICA) 200 mg capsule Take 1 capsule by mouth daily at bedtime for 180 days. - flash glucose scanning reader ([place] [employer]YLE ANAHI 2 READER) DMII, insulin requiring. Testing 3-5 times q day - amLODIPine (NORVASC) 5 mg tablet Take 1 tablet by mouth once daily. - atorvastatin (LIPITOR) 10 mg tablet Take 1 tablet by mouth daily at bedtime. - budesonide-formoterol (SYMBICORT) 80-4.5 mcg/actuation inhaler Inhale 2 Puffs as instructed two times a day. - flash glucose sensor (FREESTYLE ANAHI 2 SENSOR) kit DMII, insulin requiring. Testing 3-5 times q day - ipratropium-albuterol (DUONEB) 0.5 mg-3 mg(2.5 mg base)/3 mL nebu Inhale 3 mL as instructed four times daily. - insulin needles, DISPOSABLE, (PEN NEEDLE) 31 gauge x 5/16 Use one needle per dose. 4per day. - MULTIVITAMIN-FERROUS FUMARATE-FOLIC ACID 18 MG-400 MCG TABLET Take 1 tablet by mouth daily with breakfast. - Melatonin 5 mg cap Take by mouth. - acetaminophen (TYLENOL) 650 mg/20.3 mL soln 20.3 mL by ORAL/FEEDING TUBE route every 4 hours as needed for pain. Do not exceed 5 doses in 24 hours. - aspirin 81 mg chewable tablet 1 tablet by CORPAK route once daily. - magnesium hydroxide (MOM) 400 mg/5 mL suspension 30 mL by CORPAK route every 6 hours as needed. Meds Comments as of 04/29/2014: 04/29/14 - Patient states he is on a 50 mg pain patch but does not know the name. Nitza [place] Problem List As Of Date 09/10/2024 Noted Resolved Restrictive lung disease [J98.4] 11/12/2010 MANISH on CPAP [G47.33] 11/09/2012 Bicuspid aortic valve (HCC) [Q23.81] 11/09/2012 Controlled type 2 diabetes mellitus with diabet*11/09/2012 Hyperlipidemia [E78.5] 11/09/2012 Hypertension [I10] 11/09/2012 DDD (degenerative disc disease), lumbar [M51.36*11/09/2012 Bipolar 1 disorder (HCC) [F31.9] 11/09/2012 Morbid obesity with BMI of 50.0-59.9, adult (HC*11/09/2012 LVH (left ventricular hypertrophy) [I51.7] Atrial septal defect and mitral stenosis [Q21.1* 11/30/2012 Chronic bronchitis, simple [J41.0] 12/07/2012 Hypogonadism male [E29.1] 01/04/2013 Ulnar neuropathy of left upper extremity [G56.2*01/07/2013 Tendinitis of left wrist [M77. (more content not included)... Normal [facility] CNOVon 09-09-2024 CNOV Office Visit (PULMWS ) -- KIEL CATHERINE ([id number]) 1960 M Date Time Provider Department 09/09/24 11:00 AM AMAURI JO PULELIUD During your visit today, we recorded the following information about you: Pulse Respiration Blood pressure Weight 64/minute 16/minute 138/82 113.4 kg Height 1.549 m Amauri Jo APRN.CNP 09/09/2024 12:44 PM Signed [facility] Lung Cancer Screening Annual Visit Current or Ex-smoker? [Current] Exam Type: annual LDCT Number of Pack Years: 34 Current smoker (=0) or Number of Years since Quit: 0 The patient's smoking history is similar to prior year lung cancer screening visit. Chief Complaint: Established patient in lung cancer screening program here for annual follow-up and preliminary evaluation of today's LDCT exam for lung nodule surveillance/management. Impression / Recommendations Assessment: Kiel Catherine is at an increased risk for developing lung cancer based on their past tobacco use and continues to qualify for annual low dose CT screening. Plan: Indeterminate pulmonary nodules: Previously identified lung nodules appear stable and no new nodules of concern were noted during preliminary review of today's exam. Anticipated result: LUNG RADS Category 2 - Low dose CT Scan to be repeated in one year. Plan subject to change pending final radiology report and recommendations. Nature of the lung nodule(s) and the recommendations for further evaluation discussed in detail with patient. Kiel Catherine expressed understanding and is in agreement with plan. 2. Encounter for screening for malignant neoplasm of respiratory organs I have determined that the patient is eligible for continued low dose CT screening based on age, absence of signs or symptoms of lung cancer, smoking history and total pack years. The patient was counseled on the importance of adherence to annual LDCT lung cancer screening, impact of comorbidities and ability or willingness to undergo diagnosis and treatment. The patient understands and would like to continue with annual lung screening: Yes. 3. Personal history of nicotine dependence reports that he has been smoking cigarettes. He has a 33.8 pack-year smoking history. He has never used smokeless tobacco. The patient was counseled on the importance of smoking cessation if current smoker and, if appropriate, offered additional tobacco cessation counseling services - Smoking Cessation Counseling. SMOKING CESSATION COUNSELING Smoking cessation methods including Behavior Modification were discussed with the patient and assistance offered. The medical conditions adversely affected by cigarette use include:COPD, Emphysema, and Lung Cancer. Counseled on benefits of quitting smoking, recommended cessation or reduction to prevent development and/or progression of emphysema. The patient is currently not ready to quit. I personally spent 3 minutes in counseling. The time spent in smoking cessation counseling is exclusive of any other counseling during this visit. Amauri Jo APRN.[facility] -- History of Present Illness: Kiel Catherine is a 63-year-old male, with a history of smoking, presenting for an annual lung cancer screening follow-up and lung nodule follow-up. Accompanied by daughter. Kiel was last seen in July 2022. 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 He has not had a follow-up with a art class model since the surgery due to a canceled appointment and difficulty scheduling. He denies dyspnea, hemoptysis, wheezing, or recent chest colds or infections. He reports occasional coughing, which he attributes to his smoking habit of approximately 3/4 pack per day. He notes that his breathing is not 100%, but considers it good for someone who smokes. He has not seen a director data processing since his surgery. He mentions a previous consultation he had to cancel with a vascular doctor for peripheral vascular disease earlier this month. About 8 years ago, he was told he had poor blood flow and was advised to consider a vein graft. He is currently without a car but expects to have it running by September. Last 12 Encounter Wt Readings: Date: Wt: 09/09/2024 113.4 kg (250 lb) 02/08/2024 116.6 kg (257 lb) 07/05/2023 104.3 kg (230 lb) 07/03/2023 104.6 kg (230 lb 9.6 oz) 06/06/2023 111.1 kg (245 lb) 03/16/2023 128.4 kg (283 lb) 03/02/2023 124.3 kg (274 lb 0.5 oz) 02/27/2023 130.2 kg (287 lb) 12/19/2022 128.5 kg (283 lb 3.2 oz) 11/30/2022 126.1 kg (278 lb) 11/17/2022 126.1 kg (278 lb) 11/10/2022 128.8 kg (284 lb) Social History Social History Tobacco Use Smokin (more content not included)... Normal [facility] CT LUNG SCREEN WO IVCONon CT LUNG SCREEN WO IVCON * * *Final Report* * * DATE OF EXAM: Sep 09 2024 10:38AM [facility] 0562 - CT LUNG SCREEN WO IVCON / PROCEDURE REASON: Cigarette smoker * * * * Physician Interpretation * * * * EXAMINATION: CHEST CT WITHOUT CONTRAST (LOW-DOSE CT LUNG CANCER SCREENING PROTOCOL) CLINICAL HISTORY: Lung cancer LDCT screening ? absence of signs or symptoms of lung cancer. Nicotine dependence (cigarettes). Subsequent (annual) Technique: Spiral CT acquisition of the chest from the thoracic inlet to the upper abdomen without contrast. MQ: CTLCS_6 Patient characteristics: * Nwvx-aj-Fllmc: 1960; Age at exam: 63 years * Gender: Male * Lung Disease: Asymptomatic (no signs or symptoms of lung disease) * Number of Pack Years: 34 * Current smoker (=0) or Number of Years since Quit: 0 * Ordering provider and NPI: TONY MAJANO [id number] * Interpreting radiologist and NPI: Elmer [id number] Exam acquisition parameters: * Exam Date: 09/09/2024 10:38 AM * Site: [facility] * * CT System Passenger Interline Clerk: Siemens * CT System Model: Sensation * Tube Current-Time (mA-sec): 52 * Peak Voltage (kV): 120V * Scan Time (sec): 9.88 * Scan Volume (z-length, cm): -26.05 * Pitch: 0.75 * Slice Thickness (mm): 1.5 * CT Dose-Length Product: 135 mGy*cm * CT Dose Index: 3.98mGy * CT Dose Reduction Method: Automated exposure control(AEC) and iterative recon COMPARISON: Prior chest CT dated 06/27/2023 RESULT: Are nodules present? Yes, 1-5 nodules Lung nodule comments: 4 mm superior segment left lower lobe nodule (89) unchanged. Other findings: Aortic valve replacement. Moderate coronary calcifications. Sternotomy wires are aligned along the midline with intact sternum. Mild degenerative changes of the thoracic spine. Lower thoracic vertebral body compression deformities unchanged. Mild bronchial thickening and minimal upper lobe emphysema. Minimal scattered atelectasis. Incidental coronary calcium as automatically processed and calculated using AI: Total Coronary Calcium Score = [100+] Agatston Units Percentile Rank (age and gender matched relative to reference population): [75th-100th] percentile* [* https://www.shaw-nhlbi.org /calcium/input.aspx] IMPRESSION: LungRADS category: 2 LungRADS modifier: None LungRADS 0 reason: n/a Recommendations: Continue annual screening with LDCT in 12 months. Reference: [employer]. Lung CT Screening Reporting and Data System (Lung-RADS). Available at: http://www.acr.org/Quality -Safety/Resources/LungRADS Missile Control Pilot: TOMMY Transcribe Date/Time: Sep 10 2024 11:00A Dictated by : RICHARD BRYSON MD This examination was interpreted and the report reviewed and electronically signed by: RICHARD BRYSON MD on Sep 10 2024 11:19AM EST [id number] Normal [facility] [id number] 08-26-2024 [facility] Misc. [facility] Comment on above: Order Comment: [id number] URINE TOX RT Result Comment: TEST RESULTS LIMITS [id number] Drug-Unb Amphetamines, Urine Negative ng/mL Iujwao=0753 Amphetamine test includes Amphetamine and Methamphetamine. Barbiturate Negative ng/mL Dgtdpu=481 Benzodiazepines Negative ng/mL Uaeqwm=912 Cannabinoid Negative ng/mL Jswych=330 Cocaine (Metab.) Negative ng/mL Yvfpgf=554 Opiates Negative ng/mL Bukxfs=322 Opiate test includes Codeine and Morphine only. Phencyclidine Negative ng/mL Cutoff=25 Methadone Screen, Urine Negative ng/mL Ejexme=599 Propoxyphene, Urine Negative ng/mL Zdbibd=300 TESTING PERFORMED AT [facility]. ORIGINAL REPORT ON FILE IN LAB CONTAINS ADDITIONAL TEST SITE INFORMATION. Performed By: #### L 505.5000, [id number] ####[facility] [address] [facility] [address] Amphetamine detection with 1 000 ng/mL as cutoffOrdered By: Walter Sellers on 08-21-2024 Amphetamines Screen method >1000 ng/mL Ql (U) Negative < 200 ng/mL [facility] No Panel InformationOrdered By: Walter Sellers on 08-21-2024 Urine Buprenorphine Qualitative Negative < 200 ng/mL [facility] Urine Oxycodone Screen Positive < 100 ng/mL [facility] Comment on above: If confirmation test ing is needed, a separate order will be required to send out testing to the reference laboratory. Quantitative urine opiates m easurementOrdered By: Walter Sellers on 08-21-2024 Opiates Ql (U) Negative < 300 ng/mL [facility] Screening urine fentanyl kenneth surementOrdered By: Walter Sellers on 08-21-2024 fentaNYL Screen Ql (U) Negative [facility] Urine Drug Screen (VISTA)on 08-21-2024 AMPHETAMINES Negative Normal <1000 ng/mL [facility] Comment on above: Order Comment: UNK Performed By: #### L 505.5000, [id number] ####[facility] [address] [place], [place], [id number] BARBITIURATES Negative Normal < 200 ng/mL [facility] Comment on above: Order Comment: UNK Performed By: #### L 505.5000, L3410.9992 ####[facility] [address] [place], [address] BENZODIAZIPINE Negative Normal < 200 ng/mL [facility] Comment on above: Order Comment: UNK Performed By: #### L 505.5000, L3410.9992 ####[facility] [address] [place], [address] BUP Ur Drug Scr Negative Normal < 200 ng/mL [facility] Comment on above: Order Comment: UNK Performed By: #### L 505.5000, L3410.9992 ####[facility] [address] [place], [address] COCAINE Negative Normal < 300 ng/mL [facility] Comment on above: Order Comment: UNK Performed By: #### L 505.5000, L3410.9992 ####[facility] [address] [place], [address] Fentanyl Negative Normal [facility] Comment on above: Order Comment: UNK Performed By: #### L 505.5000, L3410.9992 ####[facility] [address] [place], [address] METHADONE Negative Normal < 300 ng/mL [facility] Comment on above: Order Comment: UNK Performed By: #### L 505.5000, L3410.9992 ####[facility] [address] [place], [address] OPIATES Negative Normal < 300 ng/mL [facility] Comment on above: Order Comment: UNK Performed By: #### L 505.5000, L3410.9992 ####[facility] [address] [place], [address] OXYCODONE Positive Normal < 100 ng/mL [facility] Comment on above: Order Comment: UNK Result Comment: If c onfirmation testing is needed, a separate order will be required to send out testing to the reference laboratory. Performed By: #### L 505.5000, L3410.9992 ####[facility] [address] [place], [place], [address] PCP Negative Normal < 25 ng/mL [facility] Comment on above: Order Comment: UNK Performed By: #### L 505.5000, L3410.9992 ####[facility] [address] [place], [address] THC Negative Normal < 50 ng/mL [facility] Comment on above: Order Comment: UNK Performed By: #### L 505.5000, [id number] ####[facility] [address] [place], [place], [address] Urine benzodiazepine levelOr dered By: Walter Sellers on 08-21-2024 Benzodiazepines Ql (U) Negative < 200 ng/mL [facility] Urine cocaine levelOrdered B y: Walter Sellers on 08-21-2024 Cocaine Ql (U) Negative < 300 ng/mL [facility] Urine ozhdu-1-mslhspctymaixz abinol (THC) measurementOrdered By: Walter Sellers on 08-21-2024 Cannabinoids Screen Ql (U) Negative < 50 ng/mL [facility] Urine phencyclidine (PCP) de tectionOrdered By: Walter Sellers on 08-21-2024 Phencyclidine Ql (U) Negative < 25 ng/mL [facility] KIEL CATHERINE ([id number]) 1960 [place] Date Time Provider Department 08/13/24 ALYSON ARTHUR During your visit today, we recorded the following information about you: Conchita Diaz LPN 08/13/2024 2:49 PM Signed Kurt kumar'd for ciprofloxacin-dexAMETHason e (CIPRODEX) 0.3-0.1 % otic suspension Called the pharmacy and they report that this is not formulary. They report pts insurance would covered cortisporin otic suspension. Can this be changed to formulary? Angela Schmid APRN.TODD 08/13/2024 4:43 PM Signed That is fine. New script sent. Can please let patient know. Angela Schmid APRN.Bebeto Desai LPN 08/13/2024 4:52 PM Signed Pt notified. He verbalized understanding. Bebeto Haro LPN Allergies As of Date: 08/13/2024 Noted Allergy Reaction IODINATED CONTRAST MEDIA 03/16/2023 8 - GI Upset 14 - Other: See Comments Comments: Hypotension, temporary SOB LISINOPRIL 12/01/2017 14 - Other: See Comments Comments: Hyperkalemia PENICILLINS 10/29/2010 2 - Rash FLONASE (FLUTICASONE PROPIONATE) 10/18/2021 14 - Other: See Comments Comments: Nose bleeds Date Reviewed: 08/07/2024 Reviewed by: Bebeto Haro LPN - Fully Assessed Reason for Visit: Insurance Authorization [[id number]] Primary Visit Diagnosis:Acute otitis externa, unspecified laterality, unspecified type [H60.509] Order(s):neomycin-polymyxi n-hydrocortisone (CORTISPORIN) 3.5-10,000-1 mg/mL-unit/mL-% otic suspensionUse 4 drops in the left ear three times a day for 5 days.Disp: 10 mLRfl: 0 Prescriptions as of 08/13/2024 - uvdgmjhe-ouxucxejq-tnbosql rtisone (CORTISPORIN) 3.5-10,000-1 mg/mL-unit/mL-% otic suspension Use 4 drops in the left ear three times a day for 5 days. - insulin glargine (LANTUS SOLOSTAR U-100 INSULIN) 100 unit/mL (3 mL) Inject 22 Units subcutaneously daily at bedtime. - albuterol HFA (PROVENTIL HFA, VENTOLIN HFA) 90 mcg/actuation inhaler Inhale 2 puffs as instructed every 4 hours as needed for wheezing/shortness of breath. - traZODone (DESYREL) 50 mg tablet Take 1 tablet by mouth daily at bedtime. - pregabalin (LYRICA) 100 mg capsule Take 1 capsule by mouth once daily for 90 days. - ammonium lactate (LAC-HYDRIN) 12 % cream Apply to affected area as needed for dry skin. - apixaban (ELIQUIS) 5 mg tab(s) Take 1 tablet by mouth two times a day. - docusate sodium (COLACE) 100 mg capsule Take 1 capsule by mouth two times a day. - pantoprazole DR (PROTONIX) 40 mg tablet Take 1 tablet by mouth daily before breakfast. Take on empty stomach, 1/2 hr before meal. - metoprolol tartrate 37.5 mg tab Take 1 tablet by mouth every 12 hours. - Pregabalin (LYRICA) 200 mg capsule Take 1 capsule by mouth daily at bedtime for 180 days. - flash glucose scanning reader ([place] HeelsSTYLE ANAHI 2 READER) DMII, insulin requiring. Testing 3-5 times q day - amLODIPine (NORVASC) 5 mg tablet Take 1 tablet by mouth once daily. - atorvastatin (LIPITOR) 10 mg tablet Take 1 tablet by mouth daily at bedtime. - budesonide-formoterol (SYMBICORT) 80-4.5 mcg/actuation inhaler Inhale 2 Puffs as instructed two times a day. - bumetanide (BUMEX) 1 mg tablet Take 2 tablets by mouth two times a day. - flash glucose sensor (FREESTYLE ANAHI 2 SENSOR) kit DMII, insulin requiring. Testing 3-5 times q day - ipratropium-albuterol (DUONEB) 0.5 mg-3 mg(2.5 mg base)/3 mL nebu Inhale 3 mL as instructed four times daily. - insulin aspart U-100 (NOVOLOG FLEXPEN U-100 INSULIN) 100 unit/mL (3 mL) Use for sliding scale as directed with meals Blood sugar 0-150, no coverage; 151- 200, 2 units; 201- 250 4 units; 251- 300 6 units 301- 350 8 units, > 351 10 units - insulin needles, DISPOSABLE, (PEN NEEDLE) 31 gauge x 06/28 Use one needle per dose. 4per day. - MULTIVITAMIN-FERROUS FUMARATE-FOLIC ACID 18 MG-400 MCG TABLET Take 1 tablet by mouth daily with breakfast. - Melatonin 5 mg cap Take by mouth. - acetaminophen (TYLENOL) 650 mg/20.3 mL soln 20.3 mL by ORAL/FEEDING TUBE route every 4 hours as needed for pain. Do not exceed 5 doses in 24 hours. - aspirin 81 mg chewable tablet 1 tablet by CORPAK route once daily. - magnesium hydroxide (MOM) 400 mg/5 mL suspension 30 mL by CORPAK route every 6 hours as needed. Meds Comments as of 04/29/2014: 04/29/14 - Patient states he is on a 50 mg pain patch but does not know the name. Nitza Guthrie Ma Problem List As Of Date 08/13/2024 Noted Resolved Restrictive lung disease [J98.4] 11/12/2010 MANISH on CPAP [G47.33] 11/09/2012 Bicuspid aortic valve (HCC) [Q23.81] 11/09/2012 Controlled type 2 diabetes mellitus with diabet*11/09/2012 Hyperlipidemia [E78.5] 11/09/2012 Hypertension [I10] 11/09/2012 DDD (degenerative disc disease), lumbar [M51.36*11/09/2012 Bipolar 1 disorder (HCC) [F31.9] 11/09/2012 Morbid obesity with BMI of 50.0-59.9, adult (HC*11/09/2012 LVH (left (more content not included)... Normal [facility] Comprehensive metabolic 2000 panelon 08-08-2024 Albumin [Mass/Vol] 4 g/dL 3.9 - 4.9 g/dL [facility] ALP [Catalytic activity/Vol] 119 U/L High 38 - 113 U/L [facility] ALT [Catalytic activity/Vol] 12 U/L 10 - 54 U/L [facility] Anion gap [Moles/Vol] 13 mmol/L 8 - 15 mmol/L [facility] AST [Catalytic activity/Vol] 14 U/L 14 - 40 U/L [facility] Bilirubin [Mass/Vol] 0.5 mg/dL 0.2 - 1 .3 mg/dL [facility] Calcium [Mass/Vol] 9.2 mg/dL 8.5 - 10. 2 mg/dL [facility] Chloride [Moles/Vol] 102 mmol/L 98 - 10 7 mmol/L [facility] CO2 [Moles/Vol] 25 mmol/L 22 - 30 mmol/L [facility] Creatinine [Mass/Vol] 0.8 mg/dL 0.73 - 1.22 mg/dL [facility] GFR/1.73 sq M.predicted among non-blacks MDRD (S/P/Bld) [Vol rate/Area] 100 mL/min/{1.73_m2} - PINF [facility] Comment on above: Estimated Glomerular Filtration Rate (eGFR) is calculated using the 2020 CKD-EPI creatinine equation. This equation utilizes serum creatinine, sex, and age as parameters. The creatinine assay has traceable calibration to isotope dilution-mass spectrometry. Refer to KDIGO guidelines for clinical interpretation. In patients with unstable renal function, e.g. those with acute kidney injury, the eGFR may not accurately reflect actual GFR. Glucose [Mass/Vol] 190 mg/dL High 74 - 99 mg/dL [facility] Comment on above: The [place] Diabete s Association (ADA) provides guidance for cutoff values for fasting glucose and random glucose. The ADA defines fasting as no caloric intake for at least 8 hours. Fasting plasma glucose results between 100 to 125 mg/dL indicate increased risk for diabetes (prediabetes). Fasting plasma glucose results greater than or equal to 126 mg/dL meet the criteria for diagnosis of diabetes. In the absence of unequivocal hyperglycemia, results should be confirmed by repeat testing. In a patient with classic symptoms of hyperglycemia or hyperglycemic crisis, random plasma glucose results greater than or equal to 200 mg/dL meet the criteria for diagnosis of diabetes. Reference: Standards of Medical Care in Diabetes 2016, [place] [employer]. Diabetes Care. 2016.39(Suppl 1). Potassium [Moles/Vol] 4.5 mmol/L 3.7 - 5.1 mmol/L [facility] Protein [Mass/Vol] 6.7 g/dL 6.3 - 8.0 g/dL [facility] Sodium [Moles/Vol] 140 mmol/L 136 - 144 mmol/L [facility] Urea nitrogen [Mass/Vol] 20 mg/dL 9 - 24 mg/dL [facility] Lipid 1996 panelon 5 Cholesterol [Mass/Vol] 136 mg/dL NINF - 200 mg/dL [facility] Comment on above: <200 mg/dL, Desirabl e 200-239 mg/dL, Borderline high >239 mg/dL, High Cholesterol in HDL [Mass/Vol] 33 mg/dL Low 39 - PINF mg/dL [facility] Comment on above: 40-59 mg/dL, Accepta ble >59 mg/dL, High: Negative risk factor for coronary heart disease <40 mg/dL, Low: Positive risk factor for coronary heart disease Cholesterol in LDL [Mass/Vol] 76 mg/dL NINF - 100 mg/dL [facility] Comment on above: <100 mg/dL, Optimal 100-129 mg/dL, Near optimal/above optimal 130-159 mg/dL, Borderline high 160-189 mg/dL, High >189 mg/dL, Very high Secondary prevention optimal LDL Cholesterol levels are recommended to be <70 mg/dL LDL cholesterol is calculated using the Wright-NIH equation. Cholesterol in LDL/Cholesterol in HDL [Mass ratio] 2.3 {ratio} NINF - 2.54 [facility] Comment on above: Reference: 1. National Cholesterol Education Program ATP III Guideline At-A-Glance Quick Desk Reference: National Heart, Lung, and Blood [place]. National Institutes of Health. 2001: NIH Publication No. 01-3305. 2. An International Atherosclerosis Society position paper: global recommendations for the management of dyslipidemia: executive summary, Atherosclerosis. 2014: 232(2):410-413. Cholesterol in VLDL [Mass/Vol] 24 mg/dL NINF - 30 mg/dL [facility] Cholesterol non HDL [Mass/Vol] 103 mg/dL NINF - 130 mg/dL [facility] Comment on above: <130 mg/dL, Optimal 130-159 mg/dL, Near optimal/above optimal 160-189 mg/dL, Borderline high 190-219 mg/dL, High >219 mg/dL, Very high Secondary prevention optimal non HDL Cholesterol levels are recommended to be <100 mg/dL Cholesterol.total/Chol esterol in HDL [Mass ratio] 4.12 {ratio} NINF - 5.10 [facility] Fasting Time 12 hrs [facility] Triglyceride [Mass/Vol] 157 mg/dL High NINF - 150 mg/dL [facility] Comment on above: <150 mg/dL, Normal 150-199 mg/dL, Borderline high 200-499 mg/dL, High >499 mg/dL, Very high No Panel Informationon 08-08 Interpretation and review of laboratory results Abnormal [facility] PSA/PROSTATE SPECIFIC ANTIGE N SCREENINGon 08-08-2024 Interpretation and review of laboratory results Normal [facility] Prostate specific Ag [Mass/Vol] 0.16 ng/mL [facility] - 2.60 ng/mL [facility] Comment on above: Total PSA test metho dology used is the Electrochemiluminescence Immunoassay by [employer]. Total PSA values by differing methodologies cannot be interchanged. [facility] CBC W Auto Differential pane l (Bld)on 08-07-2024 Basophils (Bld) [#/Vol] 0.07 10*3/uL [facility] Basophils/100 WBC (Bld) 0.7 % [facility] Differential cell count method Nom (Bld) Auto [facility] Eosinophils (Bld) [#/Vol] 0.08 10*3/uL [facility] Eosinophils/100 WBC (Bld) 0.8 % [facility] Erythrocyte distribution width (RBC) [Ratio] 12.6 % 11.5 - 15.0 % [facility] Hematocrit (Bld) [Volume fraction] 49.7 % 39.0 - 51.0 % [facility] Hemoglobin (Bld) [Mass/Vol] 16.7 g/dL 13.0 - 17.0 g/dL [facility] Immature granulocytes (Bld) [#/Vol] 0.05 10*3/uL [facility] Immature granulocytes/100 WBC (Bld) 0.5 % [facility] Interpretation and review of laboratory results Abnormal [facility] Lymphocytes (Bld) [#/Vol] 1.81 10*3/uL [facility] Lymphocytes/100 WBC (Bld) 17.1 % [facility] MCH (RBC) [Entitic mass] 30 pg 26.0 - 34.0 pg [facility] MCHC (RBC) [Mass/Vol] 33.6 g/dL 30.5 - 36.0 g/dL [facility] MCV (RBC) [Entitic vol] 89.2 fL 80.0 - 100.0 fL [facility] Monocytes (Bld) [#/Vol] 0.83 10*3/uL [facility] Monocytes/100 WBC (Bld) 7.9 % [facility] Neutrophils (Bld) [#/Vol] 7.72 10*3/uL High [facility] Neutrophils/100 WBC (Bld) 73 % [facility] Nucleated RBC (Bld) [#/Vol] NINF [facility] Nucleated RBC/100 WBC (Bld) [Ratio] 0 % /100 WBC [facility] Platelet mean volume (Bld) [Entitic vol] 12.4 fL 9.0 - 12.7 fL [facility] Platelets (Bld) [#/Vol] 189 10*3/uL [facility] RBC (Bld) [#/Vol] 5.57 10*6/uL 4.20 - 6.00 m/uL [facility] WBC (Bld) [#/Vol] 10.56 10*3/uL [facility] Basophils (Bld) [#/Vol] 0.07 10*3/uL Normal <0.11 [facility] Comment on above: Order Comment: Speci men Type: BLOOD SPECIMENOrdering Facility: [facility] Address: [address] [place] [address] Performed By: #### 5 7021-8 ####[facility] LABIA [id number] [address] [place] [facility] Basophils/100 WBC (Bld) 0.7 % Normal [facility] Comment on above: Order Comment: Speci men Type: BLOOD SPECIMENOrdering Facility: [facility] Address: [address] [place] [address] Performed By: #### 5 7021-8 ####[facility] LABCLIA [id number] [place] [address] [place] Differential cell count method Nom (Bld) Auto Normal [facility] Comment on above: Order Comment: Speci men Type: BLOOD SPECIMENOrdering Facility: [facility] Address: [address] [place] [address] Performed By: #### 5 7021-8 ####[facility] LABCLIA [id number] [place] Eosinophils (Bld) [#/Vol] 0.08 10*3/uL Normal <0.46 [facility] Comment on above: Order Comment: Speci men Type: BLOOD SPECIMENOrdering Facility: [facility] Address: [address] [place] [address] Performed By: #### 5 7021-8 ####[facility] LABCLIA [id number] [place] [address] [place] Eosinophils/100 WBC (Bld) 0.8 % Normal [facility] Comment on above: Order Comment: Speci men Type: BLOOD SPECIMENOrdering Facility: [facility] Address: [address] [place] [address] Performed By: #### 5 7021-8 ####[facility] LABCLIA [id number] [place] [address] [place] Erythrocyte distribution width (RBC) [Ratio] 12.6 % Normal 11.5-15.0 [facility] Comment on above: Order Comment: Speci men Type: BLOOD SPECIMENOrdering Facility: [facility] Address: [address] [place] [address] Performed By: #### 5 7021-8 ####[facility] LABCLIA [id number] [address] [place] Hematocrit (Bld) [Volume fraction] 49.7 % Normal 39.0-51.0 [facility] Comment on above: Order Comment: Speci men Type: BLOOD SPECIMENOrdering Facility: [facility] Address: [address] [place] [address] Performed By: #### 5 7021-8 ####[facility] LABCLIA [id number] [place] [address] [place] Hemoglobin (Bld) [Mass/Vol] 16.7 g/dL Normal 13.0-17.0 [facility] Comment on above: Order Comment: Speci men Type: BLOOD SPECIMENOrdering Facility: [facility] Address: [address] [place] [address] Performed By: #### 5 7021-8 ####[facility] LABCLIA [id number] [place] [address] [place] Immature granulocytes (Bld) [#/Vol] 0.05 10*3/uL Normal <0.10 [facility] Comment on above: Order Comment: Speci men Type: BLOOD SPECIMENOrdering Facility: [facility] Address: [address] [place] [address] Performed By: #### 5 7021-8 ####[facility] LABCLIA [id number] [place] [address] [place] Immature granulocytes/100 WBC (Bld) 0.5 % Normal [facility] Comment on above: Order Comment: Speci men Type: BLOOD SPECIMENOrdering Facility: [facility] Address: [address] [place] [address] Performed By: #### 5 7021-8 ####[facility] LABIA [id number] [place] [address] [place] Lymphocytes (Bld) [#/Vol] 1.81 10*3/uL Normal 1.00-4.00 [facility] Comment on above: Order Comment: Speci men Type: BLOOD SPECIMENOrdering Facility: [facility] Address: [address] [place] [address] Performed By: #### 5 7021-8 ####[facility] LABCLIA [id number] [place] [address] [place] Lymphocytes/100 WBC (Bld) 17.1 % Normal [facility] Comment on above: Order Comment: Speci men Type: BLOOD SPECIMENOrdering Facility: [facility] Address: [address] [place] [address] Performed By: #### 5 7021-8 ####[facility] LABCLIA [id number] [address] [place] MCH (RBC) [Entitic mass] 30.0 pg Normal 26.0-34.0 [facility] Comment on above: Order Comment: Speci men Type: BLOOD SPECIMENOrdering Facility: [facility] Address: [address] [place] [address] Performed By: #### 5 7021-8 ####[facility] LABIA [id number] [place] [address] [place] MCHC (RBC) [Mass/Vol] 33.6 g/dL Normal 30.5-36.0 [facility] Comment on above: Order Comment: Speci men Type: BLOOD SPECIMENOrdering Facility: [facility] Address: [address] [place] [address] Performed By: #### 5 7021-8 ####[facility] LABCLIA [id number] [place] [address] [place] MCV (RBC) [Entitic vol] 89.2 fL Normal 80.0-100.0 [facility] Comment on above: Order Comment: Speci men Type: BLOOD SPECIMENOrdering Facility: [facility] Address: [address] [place] [address] Performed By: #### 5 7021-8 ####[facility] LABIA [id number] [place] [address] [place] Monocytes (Bld) [#/Vol] 0.83 10*3/uL Normal <0.87 [facility] Comment on above: Order Comment: Speci men Type: BLOOD SPECIMENOrdering Facility: [facility] Address: [address] [place] [address] Performed By: #### 5 7021-8 ####[facility] LABCLIA [id number] [place] [address] [place] Monocytes/100 WBC (Bld) 7.9 % Normal [facility] Comment on above: Order Comment: Speci men Type: BLOOD SPECIMENOrdering Facility: [facility] Address: [address] [place] [address] Performed By: #### 5 7021-8 ####[facility] LABCLIA [id number] [place] [address] [place] Neutrophils (Bld) [#/Vol] 7.72 10*3/uL High 1.45-7.50 [facility] Comment on above: Order Comment: Speci men Type: BLOOD SPECIMENOrdering Facility: [facility] Address: [address] [place] [address] Performed By: #### 5 7021-8 ####[facility] LABCLIA [id number] [place] [address] [place] Neutrophils/100 WBC (Bld) 73.0 % Normal [facility] Comment on above: Order Comment: Speci men Type: BLOOD SPECIMENOrdering Facility: [facility] Address: [address] [place] [address] Performed By: #### 5 7021-8 ####[facility] LABCLIA [id number] [place] [address] [place] Nucleated RBC (Bld) [#/Vol] 10*3/uL Normal <0.01 [facility] Comment on above: Order Comment: Speci men Type: BLOOD SPECIMENOrdering Facility: [facility] Address: [address] [place] [address] Performed By: #### 5 7021-8 ####[facility] LABCLIA [id number] [place] [address] [place] Nucleated RBC/100 WBC (Bld) [Ratio] 0.0 /100 WBC Normal [facility] Comment on above: Order Comment: Speci men Type: BLOOD SPECIMENOrdering Facility: [facility] Address: [address] [place] [address] Performed By: #### 5 7021-8 ####[facility] LABCLIA [id number] [address] [place] [address] [place] Platelet mean volume (Bld) [Entitic vol] 12.4 fL Normal 9.0-12.7 [facility] Comment on above: Order Comment: Speci men Type: BLOOD SPECIMENOrdering Facility: [facility] Address: [address] [place] [address] Performed By: #### 5 7021-8 ####[facility] LABCLIA [id number] [place] [address] [place] Platelets (Bld) [#/Vol] 189 10*3/uL Normal 150-400 [facility] Comment on above: Order Comment: Speci men Type: BLOOD SPECIMENOrdering Facility: [facility] Address: [address] [place] [address] Performed By: #### 5 7021-8 ####[facility] LABIA [id number] [place] [address] [place] RBC (Bld) [#/Vol] 5.57 10*6/uL Normal 4.20-6.00 [facility] Comment on above: Order Comment: Speci men Type: BLOOD SPECIMENOrdering Facility: [facility] Address: [address] [place] [address] Performed By: #### 5 7021-8 ####[facility] LABCLIA [id number] [place] [address] [place] WBC (Bld) [#/Vol] 10.56 10*3/uL Normal 3.70-11.00 [facility] Comment on above: Order Comment: Speci men Type: BLOOD SPECIMENOrdering Facility: [facility] Address: [address] [place] [address] Performed By: #### 5 7021-8 ####[facility] LABCLIA [id number] [place] [address] [place] CNOVon 08-07-2024 CNOV Office Visit (FAMPWS ) -- KIEL CATHERINE ([id number]) 1960 M Date Time Provider Department 08/07/24 9:20 [facility] your visit today, we recorded the following information about you: Pulse Respiration Blood pressure 59/minute 16/minute 133/73 Angela Schmid APRN.CNP 08/07/2024 11:25 AM Addendum Start the ear drops. Get the labwork. Schedule ultrasound of the neck and legs. Schedule w/ Dr. Espinal. (Vascular). Recheck in 3 months. Bebeto Haro LPN 08/07/2024 10:10 PM Signed Ambulatory Ear Lavage Pre-treatment: No pre-treatment Treatment: Left ear Equipment and Irrigation solution and Volume used: Single use syringe with single use irrigation tip Water Total Irrigation Volume: 200ml Return flow appearance: Clear Other large chunk of debri Patient tolerated procedure: yes Tympanic membrane assessment: Tympanic membrane assessed by LIP pre and post procedure Angela Schmid APRN.CNP 08/07/2024 10:10 PM Signed This is a 63 year old male who presents today with: Kiel Catherine is a 63-year-old male with a history of CVA, COPD, DM, and HTN, presenting for a medication review and evaluation of foot pain. HISTORY OF PRESENT ILLNESS: Foot Pain: - Severe foot pain, especially at night, affecting sleep. - Pain management by Dr. Sellers; currently on Xtampza. - History of CVA affecting the right side. - Reports numbness and tingling on the top of the feet. - No current follow-up with a personal secretary. Ear Discomfort: - Reports feeling of swelling in the left ear. - No drainage; hearing is partially affected. COPD: - Uses Symbicort inhaler. - Requests refill for albuterol inhaler. - Reports occasional cough, especially when smoking. - Former CPAP user. Tobacco Use: - Smokes approximately 0.75 packs per day. Diabetes Mellitus: - Takes Lantus 20 units at bedtime. - Uses sliding scale insulin with meals. - Monitors blood glucose at home; readings around 200 mg/dL. - Follows a diet mindful of sugars and carbohydrates. - Reports excessive thirst and frequent urination. Hypertension: - Takes amlodipine. Hyperlipidemia: - Takes atorvastatin. No side effects. Anticoagulation Therapy: - Takes apixaban. No abnormal s/s of bleeding. Chronic Pain: - Managed by Dr. Sellers; currently on Xtampza. - No longer taking tramadol. Insomnia: - Takes trazodone at bedtime. Bowel Movements: - Uses Colace and Miralax PRN. - No hematochezia or melena reported. Cold Intolerance: - Reports feeling cold most of the time. Dizziness: - Experiences dizziness when standing up quickly. - No syncope reported. PAST MEDICAL HISTORY: PAST MEDICAL HISTORY Diagnosis Date Acute ischemic left MCA stroke ([facility]) 03/22/2023 Anxiety Aortic valve stenosis, nonrheumatic Atrial septal defect and mitral stenosis ([facility]) Bicuspid aortic valve ([facility]) Bipolar 1 disorder ([facility]) Chronic obstructive pulmonary disease (COPD) ([facility]) Coronary artery disease Degenerative disc disease sees Dr. Sellers Diabetic neuropathy ([facility]) DM (diabetes mellitus) ([facility]) HTN (hypertension) Hyperkalemia Hyperlipidemia Hypogonadism male LVH (left ventricular hypertrophy) Morbid obesity ([facility]) MANISH on CPAP Pain management Dr. Sellers PAST SURGICAL HISTORY Procedure Laterality Date BACK SURGERY HX fusion- lumbar CARPAL TUNNEL both HEART SURGERY HX 03/20/2023 S/p 03/20/2023 AVR (27 Epic plus) and Ascending repair (28 hemishield) PAST SURGICAL HISTORY OF left shouder surgery PAST SURGICAL HISTORY OF nasal passages clearing for sleep apnea PAST SURGICAL HISTORY OF 02/13/1981 ORIF right ankle PAST SURGICAL HISTORY OF 04/03/2013 left ulnar nerve decompression ALLERGIES Iodinated Contrast Media, Lisinopril, Penicillins, and Flonase [Fluticasone Propionate] MEDICATIONS Current Outpatient Medications Medication Sig albuterol HFA (PROVENTIL HFA, VENTOLIN HFA) 90 mcg/actuation inhaler Inhale 2 puffs as instructed every 4 hours as needed for wheezing/shortness of breath. ciprofloxacin-dexAMETHason e (CIPRODEX) 0.3-0.1 % otic suspension Use 4 drops in the left ear two times a day for 7 days. traZODone (DESYREL) 50 mg tablet Take 1 tablet by mouth daily at bedtime. pregabalin (LYRICA) 100 mg capsule Take 1 capsule by mouth once daily for 90 days. ammonium lactate (LAC-HYDRIN) 12 % cream Apply to affected area as needed for dry skin. apixaban (ELIQUIS) 5 mg tab(s) Take 1 tablet by mouth two times a day. docusate sodium (COLACE) 100 mg capsule Take 1 capsule by mouth two times a day. pantoprazole DR (PROTONIX) 40 mg tablet Take 1 tablet by mouth daily before breakfast. Take on empty stomach, 1/2 hr before meal. metoprolol tartrate 37.5 mg tab Take 1 tablet by mouth every 12 hours. Pregabalin (LYRICA) 200 mg capsule Take 1 capsule by mouth daily at bedtime (more content not included)... Normal [facility] Comprehensive metabolic 2000 panelon 08-07-2024 Albumin [Mass/Vol] 4.0 g/dL Normal 3.9-4.9 [facility] Comment on above: Order Comment: Speci men Type: BLOOD SPECIMENOrdering Facility: [facility] Address: [address] [place] [address] Performed By: #### 2 4323-8, 99202-6 ####[facility] LABCLIA [id number] [place] [address] [place] ALP [Catalytic activity/Vol] 119 U/L High 38-113 [facility] Comment on above: Order Comment: Speci men Type: BLOOD SPECIMENOrdering Facility: [facility] Address: [address] [place] [address] Performed By: #### 2 4323-8, 46763-6 ####[facility] LABIA [id number] [place] [address] [place] ALT [Catalytic activity/Vol] 12 U/L Normal 10-54 [facility] Comment on above: Order Comment: Speci men Type: BLOOD SPECIMENOrdering Facility: [facility] Address: [address] [place] [address] Performed By: #### 2 4323-8, 01947-2 ####[facility] LABCLIA [id number] [address] [address] [place] Anion gap [Moles/Vol] 13 mmol/L Normal 8-15 [facility] Comment on above: Order Comment: Speci men Type: BLOOD SPECIMENOrdering Facility: [facility] Address: [address] [place], [place] [address] Performed By: #### 2 4323-8, 59074-6 ####[facility] LABCLIA [id number] [place] [address] [place] AST [Catalytic activity/Vol] 14 U/L Normal 14-40 [facility] Comment on above: Order Comment: Speci men Type: BLOOD SPECIMENOrdering Facility: [facility] Address: [address] [place], [place] [address] Performed By: #### 2 4323-8, 13266-9 ####[facility] LABCLIA [id number] [place] [address] [place] Bilirubin [Mass/Vol] 0.5 mg/dL Normal 0.2-1.3 [facility] Comment on above: Order Comment: Speci men Type: BLOOD SPECIMENOrdering Facility: [facility] Address: [address] [place], [place] [address] Performed By: #### 2 4323-8, 85122-5 ####[facility] LABCLIA [id number] [address] [address] [place] Calcium [Mass/Vol] 9.2 mg/dL Normal 8.5-10.2 [facility] Comment on above: Order Comment: Speci men Type: BLOOD SPECIMENOrdering Facility: [facility] Address: [address] [place], [place] [address] Performed By: #### 2 4323-8, 90572-9 ####[facility] LABCLIA [id number] [address] [address] [place] Chloride [Moles/Vol] 102 mmol/L Normal 98-107 [facility] Comment on above: Order Comment: Speci men Type: BLOOD SPECIMENOrdering Facility: [facility] Address: [address] [place] [address] Performed By: #### 2 4323-8, 23253-9 ####[facility] LABIA [id number] [place] [address] [place] CO2 [Moles/Vol] 25 mmol/L Normal 22-30 [facility] Comment on above: Order Comment: Speci men Type: BLOOD SPECIMENOrdering Facility: [facility] Address: [address] [place] [address] Performed By: #### 2 4323-8, 75096-3 ####[facility] LABIA [id number] [place] [address] [place] Creatinine [Mass/Vol] 0.80 mg/dL Normal 0.73-1.22 [facility] Comment on above: Order Comment: Speci men Type: BLOOD SPECIMENOrdering Facility: [facility] Address: [address] [place] [address] Performed By: #### 2 4323-8, 98482-0 ####[facility] [id number] [place] [address] [place] [facility] Creatinine and Glomerular filtration rate.predicted panel (S/P/Bld) 100 mL/min/1.73m??? Normal >=60 [facility] Comment on above: Order Comment: Speci men Type: BLOOD SPECIMENOrdering Facility: [facility] Address: [address] [place] [address] Result Comment: Stephanie mated Glomerular Filtration Rate (eGFR) is calculated using the 2020 CKD-EPI creatinine equation. This equation utilizes serum creatinine, sex, and age as parameters. The creatinine assay has traceable calibration to isotope dilution-mass spectrometry. Refer to KDIGO guidelines for clinical interpretation. In patients with unstable renal function, e.g. those with acute kidney injury, the eGFR may not accurately reflect actual GFR. Performed By: #### 2 4323-8, ####[facility] LABCLIA [id number] [address] [address] [place] Glucose [Mass/Vol] 190 mg/dL High 74-99 [facility] Comment on above: Order Comment: Sylvia doyle Type: BLOOD SPECIMENOrdering Facility: [facility] Address: [address] [place] [address] Result Comment: The [place] Diabetes Association (ADA) provides guidance for cutoff values for fasting glucose and random glucose. The ADA defines fasting as no caloric intake for at least 8 hours. Fasting plasma glucose results between 100 to 125 mg/dL indicate increased risk for diabetes (prediabetes). Fasting plasma glucose results greater than or equal to 126 mg/dL meet the criteria for diagnosis of diabetes. In the absence of unequivocal hyperglycemia, results should be confirmed by repeat testing. In a patient with classic symptoms of hyperglycemia or hyperglycemic crisis, random plasma glucose results greater than or equal to 200 mg/dL meet the criteria for diagnosis of diabetes. Reference: Standards of Medical Care in Diabetes 2016, [place] Diabetes Association. Diabetes Care. 2016.39(Suppl 1). Performed By: #### 2 4323-8, ####[facility] LABCLIA [id number] [facility] [address] [address] [place] Potassium [Moles/Vol] 4.5 mmol/L Normal 3.7-5.1 [facility] Comment on above: Order Comment: Sylvia doyle Type: BLOOD SPECIMENOrdering Facility: [facility] Address: [address] [place] [address] Performed By: #### 2 4323-8, ####[facility] LABCLIA [id number] [facility] [address] [address] [place] Protein [Mass/Vol] 6.7 g/dL Normal 6.3-8.0 [facility] Comment on above: Order Comment: Speci men Type: BLOOD SPECIMENOrdering Facility: [facility] Address: [address] [place] [address] Performed By: #### 2 4323-8, 02266-7 ####[facility] LABCLIA [id number] [address] [address] [place] Sodium [Moles/Vol] 140 mmol/L Normal 136-144 [facility] Comment on above: Order Comment: Speci men Type: BLOOD SPECIMENOrdering Facility: [facility] Address: [address] [place] [address] Performed By: #### 2 4323-8, 30127-6 ####[facility] LABCLIA [id number] [place] [address] [place] Urea nitrogen [Mass/Vol] 20 mg/dL Normal 9-24 [facility] Comment on above: Order Comment: Speci men Type: BLOOD SPECIMENOrdering Facility: [facility] Address: [address] [place] [address] Performed By: #### 2 4323-8, 15792-6 ####[facility] LABIA [id number] [place] [address] [place] HbA1c (Bld)on 08-07-2024 Average glucose Estimated from glycated hemoglobin (Bld) [Mass/Vol] 186 mg/dL Normal [facility] Comment on above: Order Comment: Speci men Type: BLOOD SPECIMENOrdering Facility: [facility] Address: [address] [place] [address] Result Comment: eAG: (Estimated average glucose) is a calculated value from HgbA1c and is workforce services representative of the average blood glucose level in the last 2-3 month period. Performed By: #### 5 5454-3 ####[facility] LABCLIA [id number] [address] [address] [place] HbA1c (Bld) [Mass fraction] 8.1 % High 4.3-5.6 [facility] Comment on above: Order Comment: Breannei men Type: BLOOD SPECIMENOrdering Facility: [facility] Address: [address] [place] [address] Result Comment: [place] Diabetes Association guidelines indicate that patients with HgbA1c in the range 5.7-6.4% are at increased risk for development of diabetes, and intervention by lifestyle modification may be beneficial. HgbA1c greater or equal to 6.5% is considered diagnostic of diabetes. Performed By: #### 5 5454-3 ####[facility] LABCLIA [id number] [address] [address] [place] Lipid 1996 panelon 5 Cholesterol [Mass/Vol] 136 mg/dL Normal <200 [facility] Comment on above: Order Comment: Sylvia men Type: BLOOD SPECIMENOrdering Facility: [facility] Address: [address] [place] [address] Result Comment: <200 mg/dL, Desirable 200-239 mg/dL, Borderline high >239 mg/dL, High Performed By: #### 2 4323-8, 90562-3 ####[facility] LABCLIA [id number] [address] [place] Cholesterol in HDL [Mass/Vol] 33 mg/dL Low >39 [facility] Comment on above: Order Comment: Speci men Type: BLOOD SPECIMENOrdering Facility: [facility] Address: [address] [place] [address] Result Comment: 40-5 9 mg/dL, Acceptable >59 mg/dL, High: Negative risk factor for coronary heart disease <40 mg/dL, Low: Positive risk factor for coronary heart disease Performed By: #### 2 4323-8, 76446-4 ####[facility] LABCLIA [id number] [place] [address] [facility] OF [place] Cholesterol in LDL [Mass/Vol] 76 mg/dL Normal <100 [facility] Comment on above: Order Comment: Speci men Type: BLOOD SPECIMENOrdering Facility: [facility] Address: [address] [place] [address] Result Comment: <100 mg/dL, Optimal 100-129 mg/dL, Near optimal/above optimal 130-159 mg/dL, Borderline high 160-189 mg/dL, High >189 mg/dL, Very high Secondary prevention optimal LDL Cholesterol levels are recommended to be <70 mg/dL LDL cholesterol is calculated using the Wright-NIH equation. Performed By: #### 2 4323-8, 57454-6 ####[facility] LABIA [id number] [address] [address] [place] Cholesterol in LDL/Cholesterol in HDL [Mass ratio] 2.30 {ratio} Normal <2.54 [facility] Comment on above: Order Comment: Speci men Type: BLOOD SPECIMENOrdering Facility: [facility] Address: [address] [place] [address] Result Comment: Refe rence: 1. National Cholesterol Education Program ATP III Guideline At-A-Glance Quick Desk Reference: National Heart, Lung, and Blood [place]. National Institutes of Health. 2001: NIH Publication No. 01-3305. 2. An International Atherosclerosis Society position paper: global recommendations for the management of dyslipidemia: executive summary, Atherosclerosis. 2014: 232(2):410-413. Performed By: #### 2 4323-8, ####[facility] LABIA [id number] [address] [address] [place] Cholesterol in VLDL [Mass/Vol] 24 mg/dL Normal <30 [facility] Comment on above: Order Comment: Breannei men Type: BLOOD SPECIMENOrdering Facility: [facility] Address: [address] [place] [address] Performed By: #### 2 4323-8, ####[facility] LABIA [id number] [address] [address] [place] Cholesterol non HDL [Mass/Vol] 103 mg/dL Normal <130 [facility] Comment on above: Order Comment: Speci men Type: BLOOD SPECIMENOrdering Facility: [facility] Address: [address] [place] [address] Result Comment: <130 mg/dL, Optimal 130-159 mg/dL, Near optimal/above optimal 160-189 mg/dL, Borderline high 190-219 mg/dL, High >219 mg/dL, Very high Secondary prevention optimal non HDL Cholesterol levels are recommended to be <100 mg/dL Performed By: #### 2 4323-8, 65146-9 ####[facility] LABCLIA [id number] [facility] [address], [place] [address] [place] Cholesterol.total/Chol esterol in HDL [Mass ratio] 4.12 {ratio} Normal <5.10 [facility] Comment on above: Order Comment: Speci men Type: BLOOD SPECIMENOrdering Facility: [facility] Address: [address] [place] [address] Performed By: #### 2 4323-8, 98477-7 ####[facility] LABCLIA [id number] [address], [place] [address] [place] FASTING TIME 12 hrs Normal [facility] Comment on above: Order Comment: Speci men Type: BLOOD SPECIMENOrdering Facility: [facility] Address: [address] [place] [address] Performed By: #### 2 4323-8, 74380-0 ####[facility] LABCLIA [id number] [facility] [facility] [address], [id number] [place] Triglyceride [Mass/Vol] 157 mg/dL High <150 [facility] Comment on above: Order Comment: Speci men Type: BLOOD SPECIMENOrdering Facility: [facility] Address: [address] [place] [address] Result Comment: <150 mg/dL, Normal 150-199 mg/dL, Borderline high 200-499 mg/dL, High >499 mg/dL, Very high Performed By: #### 2 4323-8, 32625-9 ####[facility] LABCLIA [id number] [facility] [address] [place] [address] [place] PSA/PROSTATE SPECIFIC ANTIGE N SCREENINGon 08-07-2024 Prostate specific Ag [Mass/Vol] 0.16 ng/mL Normal <2.60 [facility] Comment on above: Order Comment: Speci men Type: BLOOD SPECIMENOrdering Facility: [facility] Address: [address] [place] [address] Result Comment: Tota l PSA test methodology used is the Electrochemiluminescence Immunoassay by [employer]. Total PSA values by differing methodologies cannot be interchanged. Performed By: #### P SAS1 ####[facility] LABCLIA [id number] [facility] [id number] [place] [address] [place] L3410.9992on 07-30-2024 [facility] Misc. COMMENT Normal . [facility] Comment on above: Order Comment: [id number] 0PAIN MANAGEMNT Result Comment: Test Ordered: [id number] Y26-[id number]+SV2 Amphetamines Screen, Urine Negative ng/mL UI Reference Range: Qjhifx=758 Amphetamine test includes Amphetamine and Methamphetamine. Barbiturates Negative ng/mL UI Reference Range: Gdvqeh=084 Benzodiazepines Negative ng/mL UI Reference Range: Muuqxg=670 Cocaine (Metab.), Urine Negative ng/mL UI Reference Range: Vmehfv=631 Opiates Note: ng/mL UI See Final Results Reference Range: Flzazo=176 Opiate test includes Codeine, Morphine, Hydromorphone, Hydrocodone. Opiates Positive [A ] UI Reference Range: Ddkwok=447 Opiate test includes Codeine, Morphine, Hydromorphone, Hydrocodone. Codeine Negative UI Reference Range: Zkdjza=122 Morphine Negative UI Reference Range: Xcfgku=588 Hydromorphone Negative UI Reference Range: Ompozm=442 Hydrocodone Positive [A ] UI Reference Range: . Hydrocodone Conf, MS, UR 303 ng/mL UI Reference Range: Rxtnob=316 6-Acetylmorphine, Urine Negative ng/mL UI Reference Range: Cutoff=10 Oxycodone/Oxymorphone, Urine Negative ng/mL UI Reference Range: Xmxjgl=713 Test includes Oxycodone and Oxymorphone PCP, Urine Negative ng/mL UI Reference Range: Cutoff=25 Methadone Screen, Urine Negative ng/mL UI Reference Range: Vvuttc=060 Propoxyphene, Urine Negative ng/mL UI Reference Range: Cwltuc=117 Fentanyl, Urine Negative ng/mL UI Reference Range: Cutoff=2.0 Test includes Fentanyl and Norfentanyl This test was developed and its performance characteristics determined by [facility]. It has not been cleared or approved by the Food and Drug Administration. Tramadol Negative ng/mL UI Reference Range: Sttrex=260 Buprenorphine, Urine Negative ng/mL UI Reference Range: Cutoff=10 Creatinine, Urine 17.2 [L ] mg/dL UI Reference Range: 20.0-300.0 Specific [place] 1.0071 UI Reference Range: . pH, Urine 5.5 UI Reference Range: 4.5-8.9 Performed at: [facility] [address] [place], [place] [id number] Information Technology Program Manager: Nelson Zamorano PhD, Phone: [phone] Performed at: [address] [id number] Information Technology Program Manager: Joe Montana PhD, Phone: [phone] Performed By: #### L 505.5000, L3410.9992 ####[facility] [address] [place], [address] Amphetamine detection with 1 000 ng/mL as cutoffOrdered By: Walter Sellers on 07-24-2024 Amphetamines Screen method >1000 ng/mL Ql (U) Negative < 200 ng/mL [facility] No Panel InformationOrdered By: Walter Sellers on 07-24-2024 Urine Buprenorphine Qualitative Negative < 200 ng/mL [facility] Urine Oxycodone Screen Negative < 100 ng/mL [facility] Quantitative urine opiates m easurementOrdered By: Walter Sellers on 07-24-2024 Opiates Ql (U) Negative < 300 ng/mL [facility] Screening urine fentanyl kenneth surementOrdered By: Walter Sellers on 07-24-2024 fentaNYL Screen Ql (U) Negative [facility] Urine Drug Screen (VISTA)on 07-24-2024 AMPHETAMINES Negative Normal <1000 ng/mL [facility] Comment on above: Order Comment: PAIN MANAGMENT Performed By: #### L 505.5000, L3410.9992 ####[facility] [address] [place], [address] BARBITIURATES Negative Normal < 200 ng/mL [facility] Comment on above: Order Comment: PAIN MANAGMENT Performed By: #### L 505.5000, L3410.9992 ####[facility] [address] [place], [address] BENZODIAZIPINE Negative Normal < 200 ng/mL [facility] Comment on above: Order Comment: PAIN MANAGMENT Performed By: #### L 505.5000, L3410.9992 ####[facility] [address] [place], [address] BUP Ur Drug Scr Negative Normal < 200 ng/mL [facility] Comment on above: Order Comment: PAIN MANAGMENT Performed By: #### L 505.5000, L3410.9992 ####[facility] [address] [place], [address] COCAINE Negative Normal < 300 ng/mL [facility] Comment on above: Order Comment: PAIN MANAGMENT Performed By: #### L 505.5000, L3410.9992 ####[facility] [address] [place], [address] Fentanyl Negative Normal [facility] Comment on above: Order Comment: PAIN MANAGMENT Performed By: #### L 505.5000, L3410.9992 ####[facility] [address] [place], [address] METHADONE Negative Normal < 300 ng/mL [facility] Comment on above: Order Comment: PAIN MANAGMENT Performed By: #### L 505.5000, L3410.9992 ####[facility] [address] [place], [address] OPIATES Negative Normal < 300 ng/mL [facility] Comment on above: Order Comment: PAIN MANAGMENT Performed By: #### L 505.5000, L3410.9992 ####[facility] [address] [place], [address] OXYCODONE Negative Normal < 100 ng/mL [facility] Comment on above: Order Comment: PAIN MANAGMENT Performed By: #### L 505.5000, L3410.9992 ####[facility] [address] [place], [address] PCP Negative Normal < 25 ng/mL [facility] Comment on above: Order Comment: PAIN MANAGMENT Performed By: #### L 505.5000, L3410.9992 ####[facility] [address] [place], [address] THC Negative Normal < 50 ng/mL [facility] Comment on above: Order Comment: PAIN MANAGMENT Performed By: #### L 505.5000, L3410.9992 ####[facility] [address] [place], [address] Urine benzodiazepine levelOr dered By: Walter Basali on 07-24-2024 Benzodiazepines Ql (U) Negative < 200 ng/mL [facility] Urine cocaine levelOrdered B y: Ayman Basali on 07-24-2024 Cocaine Ql (U) Negative < 300 ng/mL [facility] Urine qahhh-5-igzfequiyvnkex abinol (THC) measurementOrdered By: Walter Basali on 07-24-2024 Cannabinoids Screen Ql (U) Negative < 50 ng/mL [facility] Urine phencyclidine (PCP) de tectionOrdered By: destin Basali on 07-24-2024 Phencyclidine Ql (U) Negative < 25 ng/mL [facility] Knee 1 or 2 Viewson 06-21-19 Knee 1 or 2 Views [facility] Imaging Services [address] [place] [address] Knee 1 or 2 Views MR#: [id number] Acct: [id number] Name: KIEL CATHERINE Rep #: [id number] : 1960 M 63 From: Kiel Kramer i, MD PCP: Dr. Alyson Arthur MD Status: REG CLI Study: Knee 1 or 2 Views Date of Exam: 06/20/24 Exam# [id number] Ordering Dr: Walter Sellers MD PROCEDURE: KNEE 1 OR 2 VIEWS REASON FOR EXAM: OA TECHNIQUE: AP and lateral view(s) of the left knee COMPARISON: Right knee x-ray performed on 06/20/2024. FINDINGS: Irregularity seen within the proximal metadiaphysis of the fibula bone seen on the lateral view. This is worrisome for minimally displaced fracture. No significant osteoarthritis. No suprapatellar joint effusion. Atheromatous disease calcification is present. RAD/Knee 1 or 2 Views IMPRESSION: Findings worrisome for minimally displaced fracture of the proximal fibula metadiaphysis under left side. Correlate clinically for site of pain. No significant osteoarthritis seen on the left side. Reading Location: [facility] CC: Dr. Walter Sellers MD; Dr. Alyson Arthur MD Missile Control Pilot: Signed [facility] Knee 1 or 2 Views [facility] Imaging Services [address] [place], [place] [address] Knee 1 or 2 Views MR#: [id number] Acct: [id number] Name: KIEL CATHERINE Rep #: [id number] : 1960 63 From: Kiel Kramer i, MD PCP: Dr. Alyson Arthur MD Status: REG CLI Study: Knee 1 or 2 Views Date of Exam: 06/20/24 Exam# [id number] Ordering Dr: Waltre Sellers MD PROCEDURE: KNEE 1 OR 2 VIEWS 06/20/2024 REASON FOR EXAM: OA TECHNIQUE: AP and lateral view(s) of the right knee COMPARISON: Left knee x-ray performed on the same day. FINDINGS: No fracture or dislocation. No significant osteoarthritis. No suprapatellar joint effusion. Atheromatous calcification present within the arteries. RAD/Knee 1 or 2 Views IMPRESSION: No fracture or dislocation is seen within the right knee. Reading Location: [facility] CC: Dr. Walter Sellers MD; Dr. Alyson Arthur MD Missile Control Pilot: Signed [facility] [place] [facility] DILL[facility]KIEL ([id number]) 1960 M Date Time Provider Department 03/04/24 ALYSON ARTHUR During your visit today, we recorded the following information about you: Rae Salazar 03/04/2024 10:49 AM Signed Kiel is calling Alyson Arthur MD today with concern regarding Medication Request Calling in today states that he needs a new [facility] [place]. flash glucose scanning reader ([employer] ANAHI 2 READER) Patient has been identified by name and birthdate. Duration of symptoms: N/A Person calling: spouse: Gissell Call patient at: at home and on cell [phone] (home) [phone] (cell) Was an appointment scheduled: No Closing statement: Results or non-symptom based questions: Thank you for calling [facility], your call will be returned within the next business day. Rae Granger Allergies As of Date: 03/04/2024 Noted Allergy Reaction IODINATED CONTRAST MEDIA 03/16/2023 8 - GI Upset 14 - Other: See Comments Comments: Hypotension, temporary SOB LISINOPRIL 12/01/2017 14 - Other: See Comments Comments: Hyperkalemia PENICILLINS 10/29/2010 2 - Rash FLONASE (FLUTICASONE PROPIONATE) 10/18/2021 14 - Other: See Comments Comments: Nose bleeds Date Reviewed: 02/08/2024 Reviewed by: Margi Riddle APRN.GUEST HISTORY CLERK - Fully Assessed Reason for Visit: Medication Request [138] Visit Diagnosis:Controlled type 2 diabetes mellitus with diabetic neuropathy, with long-term current use of insulin ([facility]) [E11.40, Z79.4] Order(s):flash glucose scanning reader (FREESTYLE ANAHI 2 READER)DMII, insulin requiring. Testing 3-5 times q dayDisp: 1 EachRfl: 0 Prescriptions as of 03/04/2024 - flash glucose scanning reader (FREESTYLE ANAHI 2 READER) DMII, insulin requiring. Testing 3-5 times q day - amLODIPine (NORVASC) 5 mg tablet Take 1 tablet by mouth once daily. - ammonium lactate (LAC-HYDRIN) 12 % cream Apply to affected area as needed for dry skin. - atorvastatin (LIPITOR) 10 mg tablet Take 1 tablet by mouth daily at bedtime. - budesonide-formoterol (SYMBICORT) 80-4.5 mcg/actuation inhaler Inhale 2 Puffs as instructed two times a day. - bumetanide (BUMEX) 1 mg tablet Take 2 tablets by mouth two times a day. - flash glucose sensor (FREESTYLE ANAHI 2 SENSOR) kit DMII, insulin requiring. Testing 3-5 times q day - insulin glargine (LANTUS SOLOSTAR U-100 INSULIN) 100 unit/mL (3 mL) Inject 20 Units subcutaneously daily at bedtime. - ipratropium-albuterol (DUONEB) 0.5 mg-3 mg(2.5 mg base)/3 mL nebu Inhale 3 mL as instructed four times daily. - pregabalin (LYRICA) 100 mg capsule Take 1 capsule by mouth once daily for 90 days. - traZODone (DESYREL) 50 mg tablet Take 1 tablet by mouth daily at bedtime. - insulin aspart U-100 (NOVOLOG FLEXPEN U-100 INSULIN) 100 unit/mL (3 mL) Use for sliding scale as directed with meals Blood sugar 0-150, no coverage; 151- 200, 2 units; 201- 250 4 units; 251- 300 6 units 301- 350 8 units, > 351 10 units - insulin needles, DISPOSABLE, (PEN NEEDLE) 31 gauge x 5/16 Use one needle per dose. 4per day. - Pregabalin (LYRICA) 200 mg capsule Take 1 capsule by mouth daily at bedtime for 180 days. - docusate sodium (COLACE) 100 mg capsule Take 1 capsule by mouth two times a day. - pantoprazole DR (PROTONIX) 40 mg tablet Take 1 tablet by mouth daily before breakfast. Take on empty stomach, 1/2 hr before meal. - metoprolol tartrate 37.5 mg tab Take 1 tablet by mouth every 12 hours. - predniSONE (DELTASONE) 50 mg take 1 tablet 13, 7 (SEVEN), and 1 hour prior DIRECTED - traMADol (ULTRAM) 50 mg tablet Take 1 tablet by mouth every 8 hours as needed for pain for up to 14 days. - ondansetron (ZOFRAN) 4 mg tablet Take 1 tablet by mouth every 8 hours as needed for nausea/vomiting. - apixaban (ELIQUIS) 5 mg tab(s) Take 1 tablet by mouth two times a day. - MULTIVITAMIN-FERROUS FUMARATE-FOLIC ACID 18 MG-400 MCG TABLET Take 1 tablet by mouth daily with breakfast. - polyethylene glycol 3350 17 gram packet Take 1 Packet by mouth once daily. Dissolve dose in 4 - 8 ounces of liquid and take as directed. - Melatonin 5 mg cap Take by mouth. - acetaminophen (TYLENOL) 650 mg/20.3 mL soln 20.3 mL by ORAL/FEEDING TUBE route every 4 hours as needed for pain. Do not exceed 5 doses in 24 hours. - aspirin 81 mg chewable tablet 1 tablet by CORPAK route once daily. - magnesium hydroxide (MOM) 400 mg/5 mL suspension 30 mL by CORPAK route every 6 hours as needed. - albuterol HFA (PROVENTIL HFA, VENTOLIN HFA) 90 mcg/actuation inhaler Inhale 2 Puffs as instructed every 4 hours as needed for wheezing/shortness of breath. Meds Comments as of 04/29/2014: 04/29/14 - Patient states he is on a 50 mg pain patch but does not know the name. Nitza Guthrie Ma Problem List As Of Date 03/04/2024 Noted Resol (more content not included)... Normal [facility] [place] [facility] KIEL CATHERINE ([id number]) 1960 M Date Time Provider Department 02/15/24 ALYSON ARTHUR During your visit today, we recorded the following information about you: Aminah Escudero LPN 02/15/2024 4:54 PM Signed Direction Home sends fax requesting order for Quad cane. After printed fax face to face chart notes and order ATTN: Anastacio Hollis [phone]. Margi Riddle APRN.TODD 02/15/2024 5:08 PM Signed Done Aminah Escudero LPN 02/16/2024 8:28 AM Signed Faxed as requested. Allergies As of Date: 02/15/2024 Noted Allergy Reaction IODINATED CONTRAST MEDIA 03/16/2023 8 - GI Upset 14 - Other: See Comments Comments: Hypotension, temporary SOB LISINOPRIL 12/01/2017 14 - Other: See Comments Comments: Hyperkalemia PENICILLINS 10/29/2010 2 - Rash FLONASE (FLUTICASONE PROPIONATE) 10/18/2021 14 - Other: See Comments Comments: Nose bleeds Date Reviewed: 02/08/2024 Reviewed by: Margi Riddle APRN.GUEST HISTORY CLERK - Fully Assessed Primary Visit Diagnosis:Chronic back pain, unspecified back location, unspecified back pain laterality [M54.9, G89.29] Other Visit Diagnosis:Right hemiparesis (HCC) [G81.91] Order(s):CANE, QUAD OR THREE PRONG [[id number]] Order #: [id number] Prescriptions as of 02/16/2024 - amLODIPine (NORVASC) 5 mg tablet Take 1 tablet by mouth once daily. - ammonium lactate (LAC-HYDRIN) 12 % cream Apply to affected area as needed for dry skin. - atorvastatin (LIPITOR) 10 mg tablet Take 1 tablet by mouth daily at bedtime. - budesonide-formoterol (SYMBICORT) 80-4.5 mcg/actuation inhaler Inhale 2 Puffs as instructed two times a day. - bumetanide (BUMEX) 1 mg tablet Take 2 tablets by mouth two times a day. - flash glucose sensor (FREESTYLE ANAHI 2 SENSOR) kit DMII, insulin requiring. Testing 3-5 times q day - insulin glargine (LANTUS SOLOSTAR U-100 INSULIN) 100 unit/mL (3 mL) Inject 20 Units subcutaneously daily at bedtime. - ipratropium-albuterol (DUONEB) 0.5 mg-3 mg(2.5 mg base)/3 mL nebu Inhale 3 mL as instructed four times daily. - ciprofloxacin HCl (CIPRO) 500 mg tablet Take 1 tablet by mouth two times a day for 10 days. - pregabalin (LYRICA) 100 mg capsule Take 1 capsule by mouth once daily for 90 days. - traZODone (DESYREL) 50 mg tablet Take 1 tablet by mouth daily at bedtime. - insulin aspart U-100 (NOVOLOG FLEXPEN U-100 INSULIN) 100 unit/mL (3 mL) Use for sliding scale as directed with meals Blood sugar 0-150, no coverage; 151- 200, 2 units; 201- 250 4 units; 251- 300 6 units 301- 350 8 units, > 351 10 units - insulin needles, DISPOSABLE, (PEN NEEDLE) 31 gauge x 5/16 Use one needle per dose. 4per day. - Pregabalin (LYRICA) 200 mg capsule Take 1 capsule by mouth daily at bedtime for 180 days. - docusate sodium (COLACE) 100 mg capsule Take 1 capsule by mouth two times a day. - pantoprazole DR (PROTONIX) 40 mg tablet Take 1 tablet by mouth daily before breakfast. Take on empty stomach, 1/2 hr before meal. - metoprolol tartrate 37.5 mg tab Take 1 tablet by mouth every 12 hours. - predniSONE (DELTASONE) 50 mg take 1 tablet 13, 7 (SEVEN), and 1 hour prior DIRECTED - traMADol (ULTRAM) 50 mg tablet Take 1 tablet by mouth every 8 hours as needed for pain for up to 14 days. - ondansetron (ZOFRAN) 4 mg tablet Take 1 tablet by mouth every 8 hours as needed for nausea/vomiting. - apixaban (ELIQUIS) 5 mg tab(s) Take 1 tablet by mouth two times a day. - MULTIVITAMIN-FERROUS FUMARATE-FOLIC ACID 18 MG-400 MCG TABLET Take 1 tablet by mouth daily with breakfast. - polyethylene glycol 3350 17 gram packet Take 1 Packet by mouth once daily. Dissolve dose in 4 - 8 ounces of liquid and take as directed. - Melatonin 5 mg cap Take by mouth. - acetaminophen (TYLENOL) 650 mg/20.3 mL soln 20.3 mL by ORAL/FEEDING TUBE route every 4 hours as needed for pain. Do not exceed 5 doses in 24 hours. - aspirin 81 mg chewable tablet 1 tablet by CORPAK route once daily. - magnesium hydroxide (MOM) 400 mg/5 mL suspension 30 mL by CORPAK route every 6 hours as needed. - albuterol HFA (PROVENTIL HFA, VENTOLIN HFA) 90 mcg/actuation inhaler Inhale 2 Puffs as instructed every 4 hours as needed for wheezing/shortness of breath. Meds Comments as of 04/29/2014: 04/29/14 - Patient states he is on a 50 mg pain patch but does not know the name. Nitza Guthrie Ma Problem List As Of Date 02/15/2024 Noted Resolved Restrictive lung disease [J98.4] 11/12/2010 MANISH on CPAP [G47.33] 11/09/2012 Bicuspid aortic valve [Q23.81] 11/09/2012 Controlled type 2 diabetes mellitus with diabet*11/09/2012 Hyperlipidemia [E78.5] 11/09/2012 Hypertension [I10] 11/09/2012 DDD (degenerative disc disease), lumbar [M51.36*11/09/2012 Bipolar 1 disorder (HCC) [F31.9] 11/09/2012 Morbid obesity with BMI of 50.0-59.9, adult (HC*11/09/2012 LVH (left ventricular hypertrophy) [I51.7] Atria (more content not included)... Normal [facility] A1AT SerPl-mCncon 02-08-2024 Alpha 1 antitrypsin [Mass/Vol] 166 mg/dL Normal 90-200 [facility] Comment on above: Order Comment: Speci men Type: BLOOD SPECIMENOrdering Facility: [facility] Address: [address] [place] [address] Performed By: #### 1 825-9, 2132-9 ####[facility] LABCLIA [id number] [place] [address] [place] ALBUMIN/CREATININE RATIO, UR INEon 02-08-2024 Albumin DL <= 20 mg/L (U) [Mass/Vol] 14.2 mg/L Normal [facility] Comment on above: Order Comment: Speci men Type: URINE SPECIMENOrdering Facility: [facility] Address: [address] [place] [address] Performed By: #### U ACR ####[facility] LABCLIA [id number] [place] [address] [place] Albumin/Creatinine (U) [Mass ratio] 76 mg/g High <30 [facility] Comment on above: Order Comment: Speci men Type: URINE SPECIMENOrdering Facility: [facility] Address: [address] [place] [address] Result Comment: Adul t Male and Female Nephrotic Criteria: <30 mg/g is considered normal to mildly increased 30-300 mg/g is considered moderately increased >300 mg/g is considered severely increased KDIGO. (2013). KDIGO 2012 Clinical Practice Guideline for the Evaluation and Management of Chronic Kidney Disease. Official Journal of the International Society of Nephrology, 3(1), 1-150. Performed By: #### U ACR ####[facility] LABCLIA [id number] [place] [address] [place] Creatinine (U) [Mass/Vol] 18.7 mg/dL Low 20.0-300.0 [facility] Comment on above: Order Comment: Speci men Type: URINE SPECIMENOrdering Facility: [facility] Address: [address] [place] [address] Performed By: #### U ACR ####[facility] LABCLIA [id number] [place] [id number] [place] CBC W Auto Differential pane l (Bld)on 02-08-2024 Basophils (Bld) [#/Vol] 0.06 10*3/uL Normal <0.11 [facility] Comment on above: Order Comment: Speci men Type: BLOOD SPECIMENOrdering Facility: [facility] Address: [address] [place] [address] Performed By: #### 5 7021-8 ####[facility] LABCLIA [id number] [place] [address] [place] Basophils/100 WBC (Bld) 0.8 % Normal [facility] Comment on above: Order Comment: Speci men Type: BLOOD SPECIMENOrdering Facility: [facility] Address: [address] [place] [address] Performed By: #### 5 7021-8 ####[facility] LABCLIA [id number] [place] [address] [place] Differential cell count method Nom (Bld) Auto Normal [facility] Comment on above: Order Comment: Speci men Type: BLOOD SPECIMENOrdering Facility: [facility] Address: [address] [place] [address] Performed By: #### 5 7021-8 ####[facility] LABCLIA [id number] [place] [address] [place] Eosinophils (Bld) [#/Vol] 0.03 10*3/uL Normal <0.46 [facility] Comment on above: Order Comment: Speci men Type: BLOOD SPECIMENOrdering Facility: [facility] Address: [address] [place] [address] Performed By: #### 5 7021-8 ####[facility] LABCLIA [id number] [place] [address] [place] Eosinophils/100 WBC (Bld) 0.4 % Normal [facility] Comment on above: Order Comment: Speci men Type: BLOOD SPECIMENOrdering Facility: [facility] Address: [address] [place] [address] Performed By: #### 5 7021-8 ####[facility] LABCLIA [id number] [place] [address] [place] Erythrocyte distribution width (RBC) [Ratio] 12.6 % Normal 11.5-15.0 [facility] Comment on above: Order Comment: Speci men Type: BLOOD SPECIMENOrdering Facility: [facility] Address: [address] [place] [address] Performed By: #### 5 7021-8 ####[facility] LABCLIA [id number] [place] [address] [place] Hematocrit (Bld) [Volume fraction] 45.2 % Normal 39.0-51.0 [facility] Comment on above: Order Comment: Speci men Type: BLOOD SPECIMENOrdering Facility: [facility] Address: [address] [place] [address] Performed By: #### 5 7021-8 ####[facility] LABCLIA [id number] [place] [address] [place] Hemoglobin (Bld) [Mass/Vol] 15.5 g/dL Normal 13.0-17.0 [facility] Comment on above: Order Comment: Speci men Type: BLOOD SPECIMENOrdering Facility: [facility] Address: [address] [place] [address] Performed By: #### 5 7021-8 ####[facility] LABIA [id number] [place] [address] [place] Immature granulocytes (Bld) [#/Vol] 10*3/uL Normal <0.10 [facility] Comment on above: Order Comment: Speci men Type: BLOOD SPECIMENOrdering Facility: [facility] Address: [address] [place] [address] Performed By: #### 5 7021-8 ####[facility] LABCLIA [id number] [place] [address] [place] Immature granulocytes/100 WBC (Bld) 0.3 % Normal [facility] Comment on above: Order Comment: Speci men Type: BLOOD SPECIMENOrdering Facility: [facility] Address: [address] [place] [address] Performed By: #### 5 7021-8 ####[facility] LABCLIA [id number] [place] [address] [place] Lymphocytes (Bld) [#/Vol] 1.56 10*3/uL Normal 1.00-4.00 [facility] Comment on above: Order Comment: Speci men Type: BLOOD SPECIMENOrdering Facility: [facility] Address: [address] [place] [address] Performed By: #### 5 7021-8 ####[facility] LABCLIA [id number] [place] [address] [place] Lymphocytes/100 WBC (Bld) 20.3 % Normal [facility] Comment on above: Order Comment: Speci men Type: BLOOD SPECIMENOrdering Facility: [facility] Address: [address] [place] [address] Performed By: #### 5 7021-8 ####[facility] LABCLIA [id number] [place] [address] [place] MCH (RBC) [Entitic mass] 30.6 pg Normal 26.0-34.0 [facility] Comment on above: Order Comment: Speci men Type: BLOOD SPECIMENOrdering Facility: [facility] Address: [address] [place] [address] Performed By: #### 5 7021-8 ####[facility] LABCLIA [id number] [place] [address] [place] MCHC (RBC) [Mass/Vol] 34.3 g/dL Normal 30.5-36.0 [facility] Comment on above: Order Comment: Speci men Type: BLOOD SPECIMENOrdering Facility: [facility] Address: [address] [place] [address] Performed By: #### 5 7021-8 ####[facility] LABCLIA [id number] [place] [address] [place] MCV (RBC) [Entitic vol] 89.3 fL Normal 80.0-100.0 [facility] Comment on above: Order Comment: Speci men Type: BLOOD SPECIMENOrdering Facility: [facility] Address: [address] [place] [address] Performed By: #### 5 7021-8 ####[facility] LABCLIA [id number] [place] [address] [place] Monocytes (Bld) [#/Vol] 0.62 10*3/uL Normal <0.87 [facility] Comment on above: Order Comment: Speci men Type: BLOOD SPECIMENOrdering Facility: [facility] Address: [address] [place] [address] Performed By: #### 5 7021-8 ####[facility] LABCLIA [id number] [place] [address] [place] Monocytes/100 WBC (Bld) 8.1 % Normal [facility] Comment on above: Order Comment: Speci men Type: BLOOD SPECIMENOrdering Facility: [facility] Address: [address] [place] [address] Performed By: #### 5 7021-8 ####[facility] LABCLIA [id number] [place] [address] [place] Neutrophils (Bld) [#/Vol] 5.38 10*3/uL Normal 1.45-7.50 [facility] Comment on above: Order Comment: Speci men Type: BLOOD SPECIMENOrdering Facility: [facility] Address: [address] [place] [address] Performed By: #### 5 7021-8 ####[facility] LABCLIA [id number] [place] [address] [place] Neutrophils/100 WBC (Bld) 70.1 % Normal [facility] Comment on above: Order Comment: Speci men Type: BLOOD SPECIMENOrdering Facility: [facility] Address: [address] [place] [address] Performed By: #### 5 7021-8 ####[facility] LABCLIA [id number] [place] [address] [place] Nucleated RBC (Bld) [#/Vol] 10*3/uL Normal <0.01 [facility] Comment on above: Order Comment: Speci men Type: BLOOD SPECIMENOrdering Facility: [facility] Address: [address] [place] [address] Performed By: #### 5 7021-8 ####[facility] LABCLIA [id number] [place] [address] [place] Nucleated RBC/100 WBC (Bld) [Ratio] 0.0 /100 WBC Normal [facility] Comment on above: Order Comment: Speci men Type: BLOOD SPECIMENOrdering Facility: [facility] Address: [address] [place] [address] Performed By: #### 5 7021-8 ####[facility] LABCLIA [id number] [place] [address] [place] Platelet mean volume (Bld) [Entitic vol] 12.3 fL Normal 9.0-12.7 [facility] Comment on above: Order Comment: Speci men Type: BLOOD SPECIMENOrdering Facility: [facility] Address: [address] [place] [address] Performed By: #### 5 7021-8 ####[facility] LABCLIA [id number] [place] [address] [place] Platelets (Bld) [#/Vol] 187 10*3/uL Normal 150-400 [facility] Comment on above: Order Comment: Speci men Type: BLOOD SPECIMENOrdering Facility: [facility] Address: [address] [place] [address] Performed By: #### 5 7021-8 ####[facility] LABCLIA [id number] [place] [address] [place] RBC (Bld) [#/Vol] 5.06 10*6/uL Normal 4.20-6.00 [facility] Comment on above: Order Comment: Speci men Type: BLOOD SPECIMENOrdering Facility: [facility] Address: [address] [place] [address] Performed By: #### 5 7021-8 ####[facility] LABCLIA [id number] [place] [address] [place] WBC (Bld) [#/Vol] 7.67 10*3/uL Normal 3.70-11.00 [facility] Comment on above: Order Comment: Speci men Type: BLOOD SPECIMENOrdering Facility: [facility] Address: [address] [place] [address] Performed By: #### 5 7021-8 ####[facility] LABCLIA [id number] [place] [address] [place] CNOVon 02-08-2024 CNOV Office Visit (FAMPWS ) -- JANKIKIEL GARCIA ([id number]) 1960 M Date Time Provider Department 02/08/24 11:20 AM MARGI RIDDLE [facility] During your visit today, we recorded the following information about you: Temperature Pulse Respiration Blood pressure 98 degrees 64/minute 16/minute 124/76 Weight 116.6 kg Margi Riddle, TECHNICAL ACCOUNT REPRESENTATIVE.GUEST HISTORY CLERK 02/08/2024 1:20 PM Signed Chief Reason For Appointment Patient presents with: Follow Up Kiel Catherine is a 63 year old male who presents for annual exam. Last office visit date: 07/05/2023 Accompanied By daughter, Alicia Have you had any critical events, hospital stays, ER visits, surgeries or procedures since your last visit here in our office: Yes Specialists/Other Healthcare Providers Seen: Patient Care Team: Alyson Arthur MD as PCP - General (Family Medicine) Shlomo Alcocer MD as Surgeon (Cardiac Surg) Benjamin Pike MD as Referring (Cardiovascular Surgery) Kiel Barnes MD as Primary Staff Physician (Cardiology) Angela Schmid APRN.TODD as Calender Inspector (Family Medicine) Margi Riddle APRN.CNP as Calender Inspector (Family Medicine) Concerns today: Getting up frequently for urination, can't hold it HPI Had a bowel obstruction- did not require surgery Also, admitted for pneumonia Valve replacement Sees Dr. Atwood for pain in feet and back DM: Reports overall feeling well. Medication side effects: No. Home sugar checks: Yes. Twice a day- sometimes more (FBS- 200-230) Hypoglycemic spells: No. Watching diet: Yes. Unexpected weight loss: No. Gained weight Polyuria, polydipsia: Yes. Vision Changes: Yes. Needs eye exam Foot lesions or numbness or pain: Yes. Active Problems ACTIVE PROBLEM LIST Encounter for Support and Coordination of Transition of Care - 03/25/2023 (A priority) Comment: Indication for Surgery: Aorta Aneurysm and Aortic Valve Stenosis Admit 03/20/23 Preop LVEF: 55% RVF: Normal Cards: Kiel Barnes EKG: NSR Cath: Mild CAD Postop LVEF: Normal RVF: Normal PMH/PSH: BAV, , CAD, HTN, HPL, Moderate pulmonary HTN, T2DM, COPD, MANISH on CPAP, Morbid obesity, 1 PPD current smoker, Bipolar 1, chronic back pain/degenerative disc disease (sees pain management), s/p lumbar fusion Preoperative Hospital Course: 62 yo male with PMH significant for morbid obesity, DM type II, COPD, coronary artery disease, bipolar 1 disorder, HTN, HLD, MANISH on CPAP, and known bicuspid aortic stenosis. He had a recent TTE on 09/30/22, and though the images are poor due to body habitus he did have findings of severe aortic stenosis with peak gradient of 76, mean gradient 39 DI 0.23, and aortic valve area of 1.0. He was recently admitted to [facility] for a blister on the anterior right lower extremity over the tibia which had popped causing an open wound, and TTE done at the [facility] - 03/22/2023 (B priority) Comment: Mild Cad (C priority) Comment: 11/29/22 LHC: The LMT is normal. The LAD has mild diffuse disease. The Circumflex has mild diffuse disease. The RCA has mild diffuse disease. Dilatation of Aorta ([facility]) (C priority) Comment: 03/16/23 TTE: The visualized aorta is dilated with a maximal dimension of 4.4 cm. Postoperative Pain (D priority) Comment: see coord note hx chronic back pain Hypernatremia - 03/25/2023 (F priority) Hypervolemia - 03/21/2023 (F priority) On Tube Feeding Diet - 04/06/2023 Slurred Speech - 04/05/2023 Right Hemiparesis ([facility]) - 04/05/2023 Cognitive Communication Deficit - 04/04/2023 Pressure Injury of Coccygeal Region, Unstageable ([facility]) - 04/03/2023 Comment: Primary Sleep Apnea of Xenia - 03/28/2023 Nicotine use disorder, F17.2 - 03/27/2023 Comment: Dysarthria - 03/27/2023 Comment: Impaired Gait and Mobility - 03/24/2023 Right Arm Weakness - 03/24/2023 Coordination Impairment - 03/24/2023 Comment: Alteration in Self-Care Ability - 03/24/2023 Comment: Insulin Dose Changed ([facility]) - 03/24/2023 Type 2 Diabetes Mellitus With Hyperglycemia, With Long-Term Current Use of Insulin ([facility]) - 03/24/2023 Comment: Hemoglobin A1C (%) Date Value 02/27/2023 6.5 06/24/2020 9.6 Dysphagia - 03/22/2023 Comment: MBS on 03/28/23 Followed by Speech therapy: see coord note Arterial Ischemic Stroke, Mca (Middle Cerebral Artery), Left, Acute ([facility]) - 03/22/2023 Comment: see coord note Open Wound of Left Great Toe - 03/22/2023 Comment: scab unknown etiology Alteration in Skin Integrity Due to Moisture - 03/22/2023 Comment: lower abdominal skin fold, right breast skin fold Skin Tear of Upper Extremity - 03/22/2023 Comment: left ear Pressure Injury of Sacral Region, Unstageable ([facility]) - 03/22/2023 Comment: coccyx Discharge Planning Issues - 03/16/2023 Comment: Patient is a 62 year old male from [place], [place]. PMANDR following for acute (more content not included)... Normal [facility] Comprehensive metabolic 2000 panelon 02-08-2024 Albumin [Mass/Vol] 3.8 g/dL Low 3.9-4.9 [facility] Comment on above: Order Comment: Speci men Type: BLOOD SPECIMENOrdering Facility: [facility] Address: [address] [place] [address] Performed By: #### 2 4323-8, 99131-6, 92906-5, 3015-3 ####[facility] LABCLIA [id number] [place] [address] [place] ALP [Catalytic activity/Vol] 125 U/L High 38-113 [facility] Comment on above: Order Comment: Speci men Type: BLOOD SPECIMENOrdering Facility: [facility] Address: [address] [place] [address] Performed By: #### 2 4323-8, 59839-0, , 3015-3 ####[facility] LABIA [id number] [place] [address] [place] ALT [Catalytic activity/Vol] 8 U/L Low 10-54 [facility] Comment on above: Order Comment: Speci men Type: BLOOD SPECIMENOrdering Facility: [facility] Address: [address] [place] [address] Performed By: #### 2 4323-8, 36769-5, 08055-9, 3015-3 ####[facility] LABCLIA [id number] [place] [id number] [place] Anion gap [Moles/Vol] 11 mmol/L Normal 8-15 [facility] Comment on above: Order Comment: Speci men Type: BLOOD SPECIMENOrdering Facility: [facility] Address: [address] [place] [address] Performed By: #### 2 4323-8, 37947-9, 87627-4, 3015-3 ####[facility] LABCLIA [id number] [place] [id number] [place] AST [Catalytic activity/Vol] 13 U/L Low 14-40 [facility] Comment on above: Order Comment: Speci men Type: BLOOD SPECIMENOrdering Facility: [facility] Address: [address] [place] [address] Performed By: #### 2 4323-8, 40527-6, 46431-4, 3015-3 ####[facility] LABCLIA [id number] [place] [address] [place] Bilirubin [Mass/Vol] 0.5 mg/dL Normal 0.2-1.3 [facility] Comment on above: Order Comment: Speci men Type: BLOOD SPECIMENOrdering Facility: [facility] Address: [address] [place] [address] Performed By: #### 2 4323-8, 09354-5, , 3 ####[facility] LABCLIA [id number] [place] [address] [place] Calcium [Mass/Vol] 9.1 mg/dL Normal 8.5-10.2 [facility] Comment on above: Order Comment: Speci men Type: BLOOD SPECIMENOrdering Facility: [facility] Address: [address] [place], [place] [address] Performed By: #### 2 4323-8, 27054-5, 44155-1, 3015-3 ####[facility] LABCLIA [id number] [place] [id number] [place] Chloride [Moles/Vol] 98 mmol/L Normal 98-107 [facility] Comment on above: Order Comment: Speci men Type: BLOOD SPECIMENOrdering Facility: [facility] Address: [address] [place], [place] [address] Performed By: #### 2 4323-8, 68573-7, , 6-3 ####[facility] LABCLIA [id number] [address] [address] [place] CO2 [Moles/Vol] 25 mmol/L Normal 22-30 [facility] Comment on above: Order Comment: Speci men Type: BLOOD SPECIMENOrdering Facility: [facility] Address: [address] [place], [place] [address] Performed By: #### 2 4323-8, 83059-1, , 3015-3 ####[facility] LABIA [id number] [address] [address] [place] Creatinine [Mass/Vol] 0.70 mg/dL Low 0.73-1.22 [facility] Comment on above: Order Comment: Speci men Type: BLOOD SPECIMENOrdering Facility: [facility] Address: [address] [place] [address] Performed By: #### 2 4323-8, 74084-2, , 3 ####[facility] LABIA [id number] [address] [address] [place] Creatinine and Glomerular filtration rate.predicted panel (S/P/Bld) 104 mL/min/1.73m??? Normal >=60 [facility] Comment on above: Order Comment: Speci men Type: BLOOD SPECIMENOrdering Facility: [facility] Address: [address] [place] [address] Result Comment: Stephanie mated Glomerular Filtration Rate (eGFR) is calculated using the 2020 CKD-EPI creatinine equation. This equation utilizes serum creatinine, sex, and age as parameters. The creatinine assay has traceable calibration to isotope dilution-mass spectrometry. Refer to KDIGO guidelines for clinical interpretation. In patients with unstable renal function, e.g. those with acute kidney injury, the eGFR may not accurately reflect actual GFR. Performed By: #### 2 4323-8, 46130-8, 78632-7, 3015-3 ####[facility] LABCLIA [id number] [address] [address] [place] Glucose [Mass/Vol] 326 mg/dL High 74-99 [facility] Comment on above: Order Comment: Speci men Type: BLOOD SPECIMENOrdering Facility: [facility] Address: [address] [place] [address] Result Comment: The [place] Diabetes Association (ADA) provides guidance for cutoff values for fasting glucose and random glucose. The ADA defines fasting as no caloric intake for at least 8 hours. Fasting plasma glucose results between 100 to 125 mg/dL indicate increased risk for diabetes (prediabetes). Fasting plasma glucose results greater than or equal to 126 mg/dL meet the criteria for diagnosis of diabetes. In the absence of unequivocal hyperglycemia, results should be confirmed by repeat testing. In a patient with classic symptoms of hyperglycemia or hyperglycemic crisis, random plasma glucose results greater than or equal to 200 mg/dL meet the criteria for diagnosis of diabetes. Reference: Standards of Medical Care in Diabetes 2016, [place] [employer] Association. Diabetes Care. 2016.39(Suppl 1). Performed By: #### 2 4323-8, 04654-7, , 3 ####[facility] LABCLIA [id number] [place] [id number] [place] Potassium [Moles/Vol] 5.1 mmol/L Normal 3.7-5.1 [facility] Comment on above: Order Comment: Speci men Type: BLOOD SPECIMENOrdering Facility: [facility] Address: [address] [place] [address] Performed By: #### 2 4323-8, 61842-1, , 3015-3 ####[facility] LABCLIA [id number] [address] [address] [place] Protein [Mass/Vol] 6.4 g/dL Normal 6.3-8.0 [facility] Comment on above: Order Comment: Speci men Type: BLOOD SPECIMENOrdering Facility: [facility] Address: [address] [place], [place] [address] Performed By: #### 2 4323-8, 21138-4, 31084-3, 6-3 ####[facility] LABCLIA [id number] [address] [address] [place] Sodium [Moles/Vol] 134 mmol/L Low 136-144 [facility] Comment on above: Order Comment: Speci men Type: BLOOD SPECIMENOrdering Facility: [facility] Address: [address] [place] [address] Performed By: #### 2 4323-8, 04599-2, , 3015-3 ####[facility] LABCLIA [id number] [address] [address] [place] Urea nitrogen [Mass/Vol] 19 mg/dL Normal - [facility] Comment on above: Order Comment: Speci men Type: BLOOD SPECIMENOrdering Facility: [facility] Address: [address] [place] [address] Performed By: #### 2 4323-8, 15637-9, , 3015-3 ####[facility] LABCLIA [id number] [address] [address] [place] HbA1c (Bld)on 02-08-2024 Average glucose Estimated from glycated hemoglobin (Bld) [Mass/Vol] 249 mg/dL Normal [facility] Comment on above: Order Comment: Speci men Type: BLOOD SPECIMENOrdering Facility: [facility] Address: [address] [place] [address] Result Comment: eAG: (Estimated average glucose) is a calculated value from HgbA1c and is workforce services representative of the average blood glucose level in the last 2-3 month period. Performed By: #### 5 5454-3 ####[facility] LABCLIA [id number] [address] [address] [place] HbA1c (Bld) [Mass fraction] 10.3 % High 4.3-5.6 [facility] Comment on above: Order Comment: Breannei men Type: BLOOD SPECIMENOrdering Facility: [facility] Address: [address] [place] [address] Result Comment: Jayashree ican Diabetes Association guidelines indicate that patients with HgbA1c in the range 5.7-6.4% are at increased risk for development of diabetes, and intervention by lifestyle modification may be beneficial. HgbA1c greater or equal to 6.5% is considered diagnostic of diabetes. Performed By: #### 5 5454-3 ####[facility] LABCLIA [id number] [place] [address] [place] Lipid 1996 panelon 4 Cholesterol [Mass/Vol] 157 mg/dL Normal <200 [facility] Comment on above: Order Comment: Sylvia men Type: BLOOD SPECIMENOrdering Facility: [facility] Address: [address] [place] [address] Result Comment: <200 mg/dL, Desirable 200-239 mg/dL, Borderline high >239 mg/dL, High Performed By: #### 2 4323-8, 50755-9, , 3015-3 ####[facility] LABCLIA [id number] [place] [address] [place] Cholesterol in HDL [Mass/Vol] 33 mg/dL Low >39 [facility] Comment on above: Order Comment: Breannei men Type: BLOOD SPECIMENOrdering Facility: [facility] Address: [address] [place] [address] Result Comment: 40-5 9 mg/dL, Acceptable >59 mg/dL, High: Negative risk factor for coronary heart disease <40 mg/dL, Low: Positive risk factor for coronary heart disease Performed By: #### 2 4323-8, 50422-5, 72702-8, 3015-3 ####[facility] LABCLIA [id number] [place] [id number] [place] Cholesterol in LDL [Mass/Vol] 64 mg/dL Normal <100 [facility] Comment on above: Order Comment: Speci men Type: BLOOD SPECIMENOrdering Facility: [facility] Address: [address] [place] [address] Result Comment: <100 mg/dL, Optimal 100-129 mg/dL, Near optimal/above optimal 130-159 mg/dL, Borderline high 160-189 mg/dL, High >189 mg/dL, Very high Secondary prevention optimal LDL Cholesterol levels are recommended to be < 70 mg/dL Performed By: #### 2 4323-8, 66049-7, 52825-9, 6-3 ####[facility] LABCLIA [id number] [place] [address] [place] Cholesterol in LDL/Cholesterol in HDL [Mass ratio] 1.94 {ratio} Normal <2.54 [facility] Comment on above: Order Comment: Speci men Type: BLOOD SPECIMENOrdering Facility: [facility] Address: [address] [place] [address] Result Comment: Refe rence: 1. National Cholesterol Education Program ATP III Guideline At-A-Glance Quick Desk Reference: National Heart, Lung, and Blood [place]. National Institutes of Health. 2001: NIH Publication No. 01-3305. 2. An International Atherosclerosis Society position paper: global recommendations for the management of dyslipidemia: executive summary, Atherosclerosis. 2014: 232(2):410-413. Performed By: #### 2 4323-8, 89758-1, 66386-4, 6-3 ####[facility] LABCLIA [id number] [place] [id number] [place] Cholesterol in VLDL [Mass/Vol] 60 mg/dL High <30 [facility] Comment on above: Order Comment: Breannei men Type: BLOOD SPECIMENOrdering Facility: [facility] Address: [address] [place] [address] Performed By: #### 2 4323-8, 25373-0, 25785-7, 6-3 ####[facility] LABCLIA [id number] [place] [address] [place] Cholesterol non HDL [Mass/Vol] 124 mg/dL Normal <130 [facility] Comment on above: Order Comment: Speci men Type: BLOOD SPECIMENOrdering Facility: [facility] Address: [address] [place] [address] Result Comment: <130 mg/dL, Optimal 130-159 mg/dL, Near optimal/above optimal 160-189 mg/dL, Borderline high 190-219 mg/dL, High >219 mg/dL, Very high Secondary prevention optimal non HDL Cholesterol levels are recommended to be <100 mg/dL Performed By: #### 2 4323-8, 43099-9, 79371-4, 6-3 ####[facility] LABCLIA [id number] [place] [address] [place] Cholesterol.total/Chol esterol in HDL [Mass ratio] 4.76 {ratio} Normal <5.10 [facility] Comment on above: Order Comment: Speci men Type: BLOOD SPECIMENOrdering Facility: [facility] Address: [address] [place] [address] Performed By: #### 2 4323-8, 54711-1, 13352-7, 6-3 ####[facility] LABCLIA [id number] [place] [address] [place] FASTING TIME 15 hrs Normal [facility] Comment on above: Order Comment: Speci men Type: BLOOD SPECIMENOrdering Facility: [facility] Address: [address] [place] [address] Performed By: #### 2 4323-8, 23446-5, 82696-6, 6-3 ####[facility] LABCLIA [id number] [place] [address] [place] Triglyceride [Mass/Vol] 300 mg/dL High <150 [facility] Comment on above: Order Comment: Speci men Type: BLOOD SPECIMENOrdering Facility: [facility] Address: [address] [place] [address] Result Comment: <150 mg/dL, Normal 150-199 mg/dL, Borderline high 200-499 mg/dL, High >499 mg/dL, Very high Performed By: #### 2 4323-8, 21422-3, 36484-9, 6-3 ####[facility] LABCLIA [id number] [place] [id number] [place] Magnesium SerPl-mCncon 02-07 Magnesium [Mass/Vol] 1.7 mg/dL Normal 1.7-2.3 [facility] Comment on above: Order Comment: Speci men Type: BLOOD SPECIMENOrdering Facility: [facility] Address: [address] [place] [address] Performed By: #### 2 4323-8, 06975-8, , 3015-3 ####[facility] LABCLIA [id number] [place] [address] [place] TSH SerPl-aCncon 02-08-2024 TSH Qn 0.825 m[IU]/L Normal 0.270-4.20 0 [facility] Comment on above: Order Comment: Speci men Type: BLOOD SPECIMENOrdering Facility: [facility] Address: [address] [place] [address] Performed By: #### 2 4323-8, 98469-4, 01303-8, 3015-3 ####[facility] LABCLIA [id number] [address] [place] Urinalysis complete panel (U )on 02-08-2024 Bacteria LM.HPF (Urine sed) [#/Area] Negative Normal Negative [facility] Comment on above: Order Comment: Speci men Type: URINE SPECIMENOrdering Facility: [facility] Address: [address] [place] [address] Performed By: #### 2 4356-8 ####[facility] LABCLIA [id number] [place] [address] [place] Bilirubin Ql (U) Negative Normal Negative [facility] Comment on above: Order Comment: Speci men Type: URINE SPECIMENOrdering Facility: [facility] Address: [address] [place] [address] Performed By: #### 2 4356-8 ####[facility] LABCLIA [id number] [place] [address] [place] Clarity (Unsp spec) Clear Normal Clear [facility] Comment on above: Order Comment: Speci men Type: URINE SPECIMENOrdering Facility: [facility] Address: [address] [place] [address] Performed By: #### 2 4356-8 ####[facility] LABCLIA [id number] [place] [address] [place] [facility] Color (U) Yellow Normal Yellow [facility] Comment on above: Order Comment: Speci men Type: URINE SPECIMENOrdering Facility: [facility] Address: [address] [place] [address] Performed By: #### 2 4356-8 ####[facility] LABCLIA [id number] [place] [address] [place] Epithelial cells LM.HPF (Urine sed) [#/Area] None Seen Normal [facility] Comment on above: Order Comment: Speci men Type: URINE SPECIMENOrdering Facility: [facility] Address: [address] [place] [address] Performed By: #### 2 4356-8 ####[facility] LABCLIA [id number] [place] [address] [place] Glucose Test strip (U) [Mass/Vol] Negative Normal Negative [facility] Comment on above: Order Comment: Speci men Type: URINE SPECIMENOrdering Facility: [facility] Address: [address] [place] [address] Performed By: #### 2 4356-8 ####[facility] LABCLIA [id number] [place] [address] [place] Hemoglobin Ql (U) Negative Normal Negative [facility] Comment on above: Order Comment: Speci men Type: URINE SPECIMENOrdering Facility: [facility] Address: [address] [place] [address] Performed By: #### 2 4356-8 ####[facility] LABCLIA [id number] [place] [address] [place] Hyaline casts (Urine sed) [#/Area] 0 /[LPF] Normal 0 /LPF [facility] Comment on above: Order Comment: Speci men Type: URINE SPECIMENOrdering Facility: [facility] Address: [address] [place] [address] Performed By: #### 2 4356-8 ####[facility] LABCLIA [id number] [place] [address] [place] Ketones Ql (U) Negative Normal Negative [facility] Comment on above: Order Comment: Speci men Type: URINE SPECIMENOrdering Facility: [facility] Address: [address] [place] [address] Performed By: #### 2 4356-8 ####[facility] LABCLIA [id number] [place] [address] [place] Leukocyte esterase Test strip Ql (U) Negative Normal Negative [facility] Comment on above: Order Comment: Speci men Type: URINE SPECIMENOrdering Facility: [facility] Address: [address] [place] [address] Performed By: #### 2 4356-8 ####[facility] LABCLIA [id number] [place] [address] [place] Nitrite Ql (U) Negative Normal Negative [facility] Comment on above: Order Comment: Speci men Type: URINE SPECIMENOrdering Facility: [facility] Address: [address] [place] [address] Performed By: #### 2 4356-8 ####[facility] LABCLIA [id number] [place] [address] [place] pH (U) 6.0 [pH] Normal <8.5 [facility] Comment on above: Order Comment: Speci men Type: URINE SPECIMENOrdering Facility: [facility] Address: [address] [place] [address] Performed By: #### 2 4356-8 ####[facility] LABIA [id number] [place] [address] [place] Protein (U) [Mass/Vol] Negative Normal Negative [facility] Comment on above: Order Comment: Speci men Type: URINE SPECIMENOrdering Facility: [facility] Address: [address] [place] [address] Performed By: #### 2 4356-8 ####[facility] LABIA [id number] [place] [address] [place] RBC LM.HPF (Urine sed) [#/Area] 0-2 /HPF Normal 0-2 /HPF [facility] Comment on above: Order Comment: Speci men Type: URINE SPECIMENOrdering Facility: [facility] Address: [address] [place] [address] Performed By: #### 2 4356-8 ####[facility] LABIA [id number] [place] [address] [place] Specific gravity (U) [Rel density] 1.010 Normal 1.005-1.03 0 [facility] Comment on above: Order Comment: Speci men Type: URINE SPECIMENOrdering Facility: [facility] Address: [address] [place] [address] Performed By: #### 2 4356-8 ####[facility] LABIA [id number] [place] [address] [place] Urobilinogen Ql (U) 0.2 EU/dL Normal 0.2-1.0 EU/dL [facility] Comment on above: Order Comment: Speci men Type: URINE SPECIMENOrdering Facility: [facility] Address: [address] [place] [address] Performed By: #### 2 4356-8 ####[facility] LABCLIA [id number] [place] [address] [place] WBC LM.HPF (Urine sed) [#/Area] 0-5 /HPF Normal 0-5 /HPF [facility] Comment on above: Order Comment: Speci men Type: URINE SPECIMENOrdering Facility: [facility] Address: [address] [place] [address] Performed By: #### 2 4356-8 ####[facility] LABCLIA [id number] [place] [address] [place] Vit B12 [facility] 12-26-2 024 Cobalamin (Vitamin B12) [Mass/Vol] 589 pg/mL Normal 232-1245 [facility] Comment on above: Order Comment: Speci men Type: BLOOD SPECIMENOrdering Facility: [facility] Address: [address] [place] [address] Performed By: #### 1 825-9, 2132-9 ####[facility] LABIA [id number] [place] [address] [place] CNPBhavya 01-29-2024 [facility] -- KIEL CATHERINE ([id number]) 1960 M Date Time Provider Department 01/29/24 [facility]IDDLE [facility] During your visit today, we recorded the following information about you: Fely Cohn LPN 01/29/2024 2:29 PM Signed Patient Shweta calling her and herself both have appts tomorrow with Daniella Riddle. Neither one of them can get out of the house they live in. There are large steps that they can not get down them. With all the rain their daughter can not drive the car closer to the house to get them in, she will be stuck. Asking if both of their appts could be changed to my chart virtual appts? They are scheduled back to back hers at 940 am and his at 1020 am. She was saying an apartment is being built in the basement so they could come out easier to the garage but not sure when that is going to be completed. Please advise Margi Riddle APRN.GUEST HISTORY CLERK 01/29/2024 2:49 PM Signed No. They need to F2F, both need labs done.? Bhavani Juan RN 01/29/2024 3:09 PM Signed Called and spoke with both pt and his Shweta. Shweta states they need to reschedule both of their appts. Edwar from tomorrow to 02/07. Allergies As of Date: 01/29/2024 Noted Allergy Reaction IODINATED CONTRAST MEDIA 03/16/2023 8 - GI Upset 14 - Other: See Comments Comments: Hypotension, temporary SOB LISINOPRIL 12/01/2017 14 - Other: See Comments Comments: Hyperkalemia PENICILLINS 10/29/2010 2 - Rash FLONASE (FLUTICASONE PROPIONATE) 10/18/2021 14 - Other: See Comments Comments: Nose bleeds Date Reviewed: 07/05/2023 Reviewed by: Shira Rios MA - Fully Assessed Reason for Visit: problem getting to appt tomorrow [Other] Prescriptions as of 01/29/2024 - pregabalin (LYRICA) 100 mg capsule Take 1 capsule by mouth once daily for 90 days. - traZODone (DESYREL) 50 mg tablet Take 1 tablet by mouth daily at bedtime. - insulin aspart U-100 (NOVOLOG FLEXPEN U-100 INSULIN) 100 unit/mL (3 mL) Use for sliding scale as directed with meals Blood sugar 0-150, no coverage; 151- 200, 2 units; 201- 250 4 units; 251- 300 6 units 301- 350 8 units, > 351 10 units - insulin glargine (LANTUS SOLOSTAR U-100 INSULIN) 100 unit/mL (3 mL) Inject 12 Units subcutaneously daily at bedtime. - insulin needles, DISPOSABLE, (PEN NEEDLE) 31 gauge x 5/16 Use one needle per dose. 4per day. - amLODIPine (NORVASC) 5 mg tablet Take 1 tablet by mouth once daily. - atorvastatin (LIPITOR) 10 mg tablet Take 1 tablet by mouth daily at bedtime. - ammonium lactate (LAC-HYDRIN) 12 % cream Apply to affected area as needed for dry skin. - Pregabalin (LYRICA) 200 mg capsule Take 1 capsule by mouth daily at bedtime for 180 days. - docusate sodium (COLACE) 100 mg capsule Take 1 capsule by mouth two times a day. - pantoprazole DR (PROTONIX) 40 mg tablet Take 1 tablet by mouth daily before breakfast. Take on empty stomach, 1/2 hr before meal. - metoprolol tartrate 37.5 mg tab Take 1 tablet by mouth every 12 hours. - bumetanide (BUMEX) 1 mg tablet Take 2 tablets by mouth two times a day. - flash glucose sensor (FREESTYLE ANAHI 2 SENSOR) kit DMII, insulin requiring. Testing 3-5 times q day - predniSONE (DELTASONE) 50 mg take 1 tablet 13, 7 (SEVEN), and 1 hour prior DIRECTED - furosemide (LASIX) 40 mg tablet Take by mouth. - traMADol (ULTRAM) 50 mg tablet Take 1 tablet by mouth every 8 hours as needed for pain for up to 14 days. - ondansetron (ZOFRAN) 4 mg tablet Take 1 tablet by mouth every 8 hours as needed for nausea/vomiting. - apixaban (ELIQUIS) 5 mg tab(s) Take 1 tablet by mouth two times a day. - MULTIVITAMIN-FERROUS FUMARATE-FOLIC ACID 18 MG-400 MCG TABLET Take 1 tablet by mouth daily with breakfast. - polyethylene glycol 3350 17 gram packet Take 1 Packet by mouth once daily. Dissolve dose in 4 - 8 ounces of liquid and take as directed. - Melatonin 5 mg cap Take by mouth. - acetaminophen (TYLENOL) 650 mg/20.3 mL soln 20.3 mL by ORAL/FEEDING TUBE route every 4 hours as needed for pain. Do not exceed 5 doses in 24 hours. - aspirin 81 mg chewable tablet 1 tablet by CORPAK route once daily. - ipratropium-albuterol (DUONEB) 0.5 mg-3 mg(2.5 mg base)/3 mL nebu Inhale 3 mL as instructed four times daily. - magnesium hydroxide (MOM) 400 mg/5 mL suspension 30 mL by CORPAK route every 6 hours as needed. - budesonide-formoterol (SYMBICORT) 80-4.5 mcg/actuation inhaler Inhale 2 Puffs as instructed two times a day. - albuterol HFA (PROVENTIL HFA, VENTOLIN HFA) 90 mcg/actuation inhaler Inhale 2 Puffs as instructed every 4 hours as needed for wheezing/shortness of breath. Meds Comments as of 04/29/2014: 04/29/14 - Patient states he is on a 50 mg pain patch but does not know the name. Nitza Guthrie Ma Problem List As Of Date 01/29/2024 Noted Resolved Restrictive lung disease [J98 (more content not included)... Normal [facility] 12-28-2023 [facility] -- KIEL CATHERINE ([id number]) 1960 M Date Time Provider Department 12/28/23 [facility] AR[facility] During your visit today, we recorded the following information about you: Tia Arenas RN 12/28/2023 3:02 PM Signed [facility] calling to let provider know they faxed CMN for incontinence supplies. Asking if form received? THOMAS Carter Tara, LPN 12/28/2023 4:20 PM Signed Yes form is in office. Elma Guthrie MA 01/01/2024 11:18 AM Signed Completed form faxed Allergies As of Date: 12/28/2023 Noted Allergy Reaction IODINATED CONTRAST MEDIA 03/16/2023 8 - GI Upset 14 - Other: See Comments Comments: Hypotension, temporary SOB LISINOPRIL 12/01/2017 14 - Other: See Comments Comments: Hyperkalemia PENICILLINS 10/29/2010 2 - Rash FLONASE (FLUTICASONE PROPIONATE) 10/18/2021 14 - Other: See Comments Comments: Nose bleeds Date Reviewed: 07/05/2023 Reviewed by: Shira Rios MA - Fully Assessed Reason for Visit: Forms [913] Prescriptions as of 01/01/2024 - insulin aspart U-100 (NOVOLOG FLEXPEN U-100 INSULIN) 100 unit/mL (3 mL) Use for sliding scale as directed with meals Blood sugar 0-150, no coverage; 151- 200, 2 units; 201- 250 4 units; 251- 300 6 units 301- 350 8 units, > 351 10 units - insulin glargine (LANTUS SOLOSTAR U-100 INSULIN) 100 unit/mL (3 mL) Inject 12 Units subcutaneously daily at bedtime. - insulin needles, DISPOSABLE, (PEN NEEDLE) 31 gauge x 5/16 Use one needle per dose. 4per day. - amLODIPine (NORVASC) 5 mg tablet Take 1 tablet by mouth once daily. - atorvastatin (LIPITOR) 10 mg tablet Take 1 tablet by mouth daily at bedtime. - ammonium lactate (LAC-HYDRIN) 12 % cream Apply to affected area as needed for dry skin. - traZODone (DESYREL) 50 mg tablet Take 1 tablet by mouth daily at bedtime. - Pregabalin (LYRICA) 200 mg capsule Take 1 capsule by mouth daily at bedtime for 180 days. - pregabalin (LYRICA) 100 mg capsule Take 1 capsule by mouth once daily for 90 days. - docusate sodium (COLACE) 100 mg capsule Take 1 capsule by mouth two times a day. - pantoprazole DR (PROTONIX) 40 mg tablet Take 1 tablet by mouth daily before breakfast. Take on empty stomach, 1/2 hr before meal. - metoprolol tartrate 37.5 mg tab Take 1 tablet by mouth every 12 hours. - bumetanide (BUMEX) 1 mg tablet Take 2 tablets by mouth two times a day. - flash glucose sensor (FREESTYLE ANAHI 2 SENSOR) kit DMII, insulin requiring. Testing 3-5 times q day - predniSONE (DELTASONE) 50 mg take 1 tablet 13, 7 (SEVEN), and 1 hour prior DIRECTED - furosemide (LASIX) 40 mg tablet Take by mouth. - traMADol (ULTRAM) 50 mg tablet Take 1 tablet by mouth every 8 hours as needed for pain for up to 14 days. - ondansetron (ZOFRAN) 4 mg tablet Take 1 tablet by mouth every 8 hours as needed for nausea/vomiting. - apixaban (ELIQUIS) 5 mg tab(s) Take 1 tablet by mouth two times a day. - MULTIVITAMIN-FERROUS FUMARATE-FOLIC ACID 18 MG-400 MCG TABLET Take 1 tablet by mouth daily with breakfast. - polyethylene glycol 3350 17 gram packet Take 1 Packet by mouth once daily. Dissolve dose in 4 - 8 ounces of liquid and take as directed. - Melatonin 5 mg cap Take by mouth. - acetaminophen (TYLENOL) 650 mg/20.3 mL soln 20.3 mL by ORAL/FEEDING TUBE route every 4 hours as needed for pain. Do not exceed 5 doses in 24 hours. - aspirin 81 mg chewable tablet 1 tablet by CORPAK route once daily. - ipratropium-albuterol (DUONEB) 0.5 mg-3 mg(2.5 mg base)/3 mL nebu Inhale 3 mL as instructed four times daily. - magnesium hydroxide (MOM) 400 mg/5 mL suspension 30 mL by CORPAK route every 6 hours as needed. - budesonide-formoterol (SYMBICORT) 80-4.5 mcg/actuation inhaler Inhale 2 Puffs as instructed two times a day. - albuterol HFA (PROVENTIL HFA, VENTOLIN HFA) 90 mcg/actuation inhaler Inhale 2 Puffs as instructed every 4 hours as needed for wheezing/shortness of breath. Meds Comments as of 04/29/2014: 04/29/14 - Patient states he is on a 50 mg pain patch but does not know the name. Nitza Guthrie Ma Problem List As Of Date 12/28/2023 Noted Resolved Restrictive lung disease [J98.4] 11/12/2010 AMNISH on CPAP [G47.33] 11/09/2012 Bicuspid aortic valve [Q23.81] 11/09/2012 Controlled type 2 diabetes mellitus with diabet*11/09/2012 Hyperlipidemia [E78.5] 11/09/2012 Hypertension [I10] 11/09/2012 DDD (degenerative disc disease), lumbar [M51.36*11/09/2012 Bipolar 1 disorder (HCC) [F31.9] 11/09/2012 Morbid obesity with BMI of 50.0-59.9, adult (HC*11/09/2012 LVH (left ventricular hypertrophy) [I51.7] Atrial septal defect and mitral stenosis [Q21.1* 11/30/2012 Chronic bronchitis, simple [J41.0] 12/07/2012 Hypogonadism male [E29.1] 01/04/2013 Ulnar neuropathy of left upper extremity [G56.2*01/07/2013 Tendinitis of left wrist [M77.8] 05/14/2013 (more content not included)... [facility] -- KIEL CATHERINE ([id number]) 1960 M Date Time Provider Department 12/28/23 ALYSON ARTHUR [facility] During your visit today, we recorded the following information about you: Aminah Escudero LPN 12/28/2023 4:22 PM Signed An order is requested for a hospital bed from [facility]. Patient would need to schedule and keep an appointment to discuss in order to have the correct documentation. Allergies As of Date: 12/28/2023 Noted Allergy Reaction IODINATED CONTRAST MEDIA 03/16/2023 8 - GI Upset 14 - Other: See Comments Comments: Hypotension, temporary SOB LISINOPRIL 12/01/2017 14 - Other: See Comments Comments: Hyperkalemia PENICILLINS 10/29/2010 2 - Rash FLONASE (FLUTICASONE PROPIONATE) 10/18/2021 14 - Other: See Comments Comments: Nose bleeds Date Reviewed: 07/05/2023 Reviewed by: Shira Rios MA - Fully Assessed Reason for Visit: Orders [681] Cmt: Hospital bed Prescriptions as of 12/28/2023 - insulin aspart U-100 (NOVOLOG FLEXPEN U-100 INSULIN) 100 unit/mL (3 mL) Use for sliding scale as directed with meals Blood sugar 0-150, no coverage; 151- 200, 2 units; 201- 250 4 units; 251- 300 6 units 301- 350 8 units, > 351 10 units - insulin glargine (LANTUS SOLOSTAR U-100 INSULIN) 100 unit/mL (3 mL) Inject 12 Units subcutaneously daily at bedtime. - insulin needles, DISPOSABLE, (PEN NEEDLE) 31 gauge x 5/16 Use one needle per dose. 4per day. - amLODIPine (NORVASC) 5 mg tablet Take 1 tablet by mouth once daily. - atorvastatin (LIPITOR) 10 mg tablet Take 1 tablet by mouth daily at bedtime. - ammonium lactate (LAC-HYDRIN) 12 % cream Apply to affected area as needed for dry skin. - traZODone (DESYREL) 50 mg tablet Take 1 tablet by mouth daily at bedtime. - Pregabalin (LYRICA) 200 mg capsule Take 1 capsule by mouth daily at bedtime for 180 days. - pregabalin (LYRICA) 100 mg capsule Take 1 capsule by mouth once daily for 90 days. - docusate sodium (COLACE) 100 mg capsule Take 1 capsule by mouth two times a day. - pantoprazole DR (PROTONIX) 40 mg tablet Take 1 tablet by mouth daily before breakfast. Take on empty stomach, 1/2 hr before meal. - metoprolol tartrate 37.5 mg tab Take 1 tablet by mouth every 12 hours. - bumetanide (BUMEX) 1 mg tablet Take 2 tablets by mouth two times a day. - flash glucose sensor (FREESTYLE ANAHI 2 SENSOR) kit DMII, insulin requiring. Testing 3-5 times q day - predniSONE (DELTASONE) 50 mg take 1 tablet 13, 7 (SEVEN), and 1 hour prior DIRECTED - furosemide (LASIX) 40 mg tablet Take by mouth. - traMADol (ULTRAM) 50 mg tablet Take 1 tablet by mouth every 8 hours as needed for pain for up to 14 days. - ondansetron (ZOFRAN) 4 mg tablet Take 1 tablet by mouth every 8 hours as needed for nausea/vomiting. - apixaban (ELIQUIS) 5 mg tab(s) Take 1 tablet by mouth two times a day. - MULTIVITAMIN-FERROUS FUMARATE-FOLIC ACID 18 MG-400 MCG TABLET Take 1 tablet by mouth daily with breakfast. - polyethylene glycol 3350 17 gram packet Take 1 Packet by mouth once daily. Dissolve dose in 4 - 8 ounces of liquid and take as directed. - Melatonin 5 mg cap Take by mouth. - acetaminophen (TYLENOL) 650 mg/20.3 mL soln 20.3 mL by ORAL/FEEDING TUBE route every 4 hours as needed for pain. Do not exceed 5 doses in 24 hours. - aspirin 81 mg chewable tablet 1 tablet by CORPAK route once daily. - ipratropium-albuterol (DUONEB) 0.5 mg-3 mg(2.5 mg base)/3 mL nebu Inhale 3 mL as instructed four times daily. - magnesium hydroxide (MOM) 400 mg/5 mL suspension 30 mL by CORPAK route every 6 hours as needed. - budesonide-formoterol (SYMBICORT) 80-4.5 mcg/actuation inhaler Inhale 2 Puffs as instructed two times a day. - albuterol HFA (PROVENTIL HFA, VENTOLIN HFA) 90 mcg/actuation inhaler Inhale 2 Puffs as instructed every 4 hours as needed for wheezing/shortness of breath. Meds Comments as of 04/29/2014: 04/29/14 - Patient states he is on a 50 mg pain patch but does not know the name. Nitza Guthrie Ma Problem List As Of Date 12/28/2023 Noted Resolved Restrictive lung disease [J98.4] 11/12/2010 MANISH on CPAP [G47.33] 11/09/2012 Bicuspid aortic valve [Q23.81] 11/09/2012 Controlled type 2 diabetes mellitus with diabet*11/09/2012 Hyperlipidemia [E78.5] 11/09/2012 Hypertension [I10] 11/09/2012 DDD (degenerative disc disease), lumbar [M51.36*11/09/2012 Bipolar 1 disorder (HCC) [F31.9] 11/09/2012 Morbid obesity with BMI of 50.0-59.9, adult (HC*11/09/2012 LVH (left ventricular hypertrophy) [I51.7] Atrial septal defect and mitral stenosis [Q21.1* 11/30/2012 Chronic bronchitis, simple [J41.0] 12/07/2012 Hypogonadism male [E29.1] 01/04/2013 Ulnar neuropathy of left upper extremity [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 Normal [facility] KIEL CATHERINE ([id number]) 1960 Date Time Provider Department 12/19/23 ALYSON ARTHUR [facility] During your visit today, we recorded the following information about you: July Perez LPN 12/19/2023 11:45 AM Signed Aria with [facility] called and they received the prescription for Novolog flexpen. Aria reports they need more information. Need to have a per day and max amount so they can fill and bill. ANALI Ashton JACQUELINE A 12/19/2023 12:17 PM Signed Delvin and Fely Pratt LPN 12/19/2023 3:21 PM Signed [facility] calling asking to have Novalog rx more clarification. Asking if the patient is only using the 4 units three times daily or in addition to sliding scale amount. Or just 4 units three times daily. Needing maximum amount of Novalog patient can use in a day on the rx. Please advise MARGI RIDDLE 12/19/2023 4:59 PM Signed Order re-written. Elma Guthrie MA 12/21/2023 4:41 PM Signed Can you rewrite this, it never printed MARGI RIDDLE 12/21/2023 4:57 PM Signed sliding scale as directed with meals Blood sugar 0-150, no coverage; 151- 200, 2 units; 201- 250 4 units; 251- 300 6 units 301- 350 8 units, > 351 10 units Apple Allen RN 12/22/2023 12:10 PM Signed Patient's calls and states that pharmacy has not received prescription yet. Looks like it was printed previously. Can we resend prescription to pharmacy? Please review and advise, THOMAS Dockery JACQUELINE A 12/22/2023 12:15 PM Signed Sending RX for the 5 th time. Even printed and faxed. ??? Allergies As of Date: 12/19/2023 Noted Allergy Reaction IODINATED CONTRAST MEDIA 03/16/2023 8 - GI Upset 14 - Other: See Comments Comments: Hypotension, temporary SOB LISINOPRIL 12/01/2017 14 - Other: See Comments Comments: Hyperkalemia PENICILLINS 10/29/2010 2 - Rash FLONASE (FLUTICASONE PROPIONATE) 10/18/2021 14 - Other: See Comments Comments: Nose bleeds Date Reviewed: 07/05/2023 Reviewed by: Shira Rios MA - Fully Assessed Reason for Visit: Medication Problem [65] Visit Diagnosis:Type 2 diabetes mellitus without complication, without long-term current use of insulin (HCC) [E11.9] Order(s):insulin aspart U-100 (NOVOLOG FLEXPEN U-100 INSULIN) 100 unit/mL (3 mL)Use for sliding scale as directed with meals Blood sugar 0-150, no coverage; 151- 200, 2 units; 201- 250 4 units; 251- 300 6 units 301- 350 8 units, > 351 10 unitsDisp: 5 EachRfl: 11 Prescriptions as of 12/22/2023 - insulin aspart U-100 (NOVOLOG FLEXPEN U-100 INSULIN) 100 unit/mL (3 mL) Use for sliding scale as directed with meals Blood sugar 0-150, no coverage; 151- 200, 2 units; 201- 250 4 units; 251- 300 6 units 301- 350 8 units, > 351 10 units - insulin glargine (LANTUS SOLOSTAR U-100 INSULIN) 100 unit/mL (3 mL) Inject 12 Units subcutaneously daily at bedtime. - insulin needles, DISPOSABLE, (PEN NEEDLE) 31 gauge x 516 Use one needle per dose. 4per day. - amLODIPine (NORVASC) 5 mg tablet Take 1 tablet by mouth once daily. - atorvastatin (LIPITOR) 10 mg tablet Take 1 tablet by mouth daily at bedtime. - ammonium lactate (LAC-HYDRIN) 12 % cream Apply to affected area as needed for dry skin. - traZODone (DESYREL) 50 mg tablet Take 1 tablet by mouth daily at bedtime. - Pregabalin (LYRICA) 200 mg capsule Take 1 capsule by mouth daily at bedtime for 180 days. - pregabalin (LYRICA) 100 mg capsule Take 1 capsule by mouth once daily for 90 days. - docusate sodium (COLACE) 100 mg capsule Take 1 capsule by mouth two times a day. - pantoprazole DR (PROTONIX) 40 mg tablet Take 1 tablet by mouth daily before breakfast. Take on empty stomach, 1/2 hr before meal. - metoprolol tartrate 37.5 mg tab Take 1 tablet by mouth every 12 hours. - bumetanide (BUMEX) 1 mg tablet Take 2 tablets by mouth two times a day. - flash glucose sensor (FREESTYLE ANAHI 2 SENSOR) kit DMII, insulin requiring. Testing 3-5 times q day - predniSONE (DELTASONE) 50 mg take 1 tablet 13, 7 (SEVEN), and 1 hour prior DIRECTED - furosemide (LASIX) 40 mg tablet Take by mouth. - traMADol (ULTRAM) 50 mg tablet Take 1 tablet by mouth every 8 hours as needed for pain for up to 14 days. - ondansetron (ZOFRAN) 4 mg tablet Take 1 tablet by mouth every 8 hours as needed for nausea/vomiting. - apixaban (ELIQUIS) 5 mg tab(s) Take 1 tablet by mouth two times a day. - MULTIVITAMIN-FERROUS FUMARATE-FOLIC ACID 18 MG-400 MCG TABLET Take 1 tablet by mouth daily with breakfast. - polyethylene glycol 3350 17 gram packet Take 1 Packet by mouth once daily. Dissolve dose in 4 - 8 ounces of liquid and take as directed. - Melatonin 5 mg cap Take by mouth. - acetaminophen (TYLENOL) 650 mg/20.3 mL soln 20.3 mL by ORAL/FEEDING TUBE route every 4 hours as needed for pain. Do not exceed (more content not included)... Normal [facility] 12-12-2023 [facility] Telephone (FAMWS) -- JANKIKIEL GARCIA ([id number]) 1960 M Date Time Provider Department 12/12/23 [facility] During your visit today, we recorded the following information about you: Bebeto Haro LPN 12/12/2023 3:18 PM Signed Pt calls office questioning insulin received from pharmacy. states pt had been getting Novolg pens from pharmacy, but this time he received vial of Humalog. Pt asking if pt is supposed to be switching insulins? states she doesn't have (never had) syringes or needles to draw insulin from a vial. I looked back through med history and pt had been receiving Novolog Flexpens. Looking back through the last few phone notes sliding scale humalog was mentioned instead of Novolog. Please advise if pt should be using Novolog vs Humalog. If so, please send rx for Novolog Flexpens to [facility]. ANALI Ortez Jamie, LPN 12/12/2023 3:24 PM Signed See [facility] POC reports. Pt has Novolog Flexpen listed on current med list. ANALI Ortez William J, MD 12/12/2023 3:55 PM Signed Can we clarify with pharmacy what he has been receiving. The last novolog pen script we had filled was written in 2021 and discontinued in our chart in 04/08. I am confused Laurel Adan MA 12/12/2023 4:24 PM Signed Reviewing notes Novolog was discontinued on 04/07/23 by hospital provider and advised not to restart. Since than we have never refilled rx for Novolog and looks like all humalog rx were just med updates in system never filled. Called [facility] and they have not dispensed Novolog since 2021. Advised received rx for humalog with sliding scale QID on 12/06/23 and gave to patient. They have never given Humalog prior. Verified that last LANTUS was fill May 2023 for 90 days and would only last till August. [facility] is not sure if rx are being filled at another pharmacy? I advised we have been sending to [facility] but family could transfer out. Spoke to and she advised spouse insulin comes from [facility] and hers from [facility]. said that she takes Novolog and thought he was taking it as well. will have daughter call in with what all insulin is in fridge but I assume must me spouse rx. Daughter will call in to verify what sliding scale that patient has been doing. LITTLE Stoner William J, MD 12/12/2023 4:35 PM Signed Noted. Will keep open. Alyson Arthur MD 12/13/2023 8:05 AM Signed If no response from patient today, recheck with them what insulins he is actually using. Fely Cohn LPN 12/15/2023 1:46 PM Signed Patient shweta returned call and said had gotten Novolog insulin in Vials. He does not have syringes, he uses pens. Right now he does not have any more Novolog pens for sliding scale. He has Lantus pens which he uses 18 units in the morning. Would need to call the [phone] phone her phone is . He uses [facility] for his pharmacy. Aware PCP is out of office. Margi Riddle APRN.TODD 12/15/2023 3:09 PM Signed This makes no sense, Pt. Told us he hasn't used sliding scale. Quit lispro and that was the last sliding scale we had. He was prescribed insulin syringes for his Lantus. The order is still good and in chart. I need clarification of insulin doses and can he use up the vials of Lantus? He has been using them since May? Elma Guthrie MA 12/18/2023 10:04 AM Addendum Called [facility] to see if they have a better answer as what he is taking. Lorie will call back. Elma Guthrie MA December 18, 2023 10:03 AM Allison Omalley MA 12/18/2023 3:17 PM Signed Lorie from [facility] returned call. States she only sees patient on monthly basis and last visit was 11/15. She states whatever her med list for patient is isn't necessarily what he's currently taking as it could have changed. Med list from Lorie: Lantus 12 units qhs Novolog flex pens sliding scale TID (50 units for q 50/200) LITTLE Willett Jacqueline A, TECHNICAL ACCOUNT REPRESENTATIVE.GUEST HISTORY CLERK 12/18/2023 5:19 PM Signed Please let pt. Know that I ordered Lantus pens and novolog pens for his sliding scale. Note that insurance may not cover Lantus pens because it is once a day and that pens are for convenience with being out and about. Elma Guthrie MA 12/18/2023 5:30 PM Signed Patient's made aware of new prescriptions sent to pharmacy Allergies As of Date: 12/12/2023 Noted Allergy Reaction IODINATED CONTRAST MEDIA 03/16/2023 8 - GI Upset 14 - Other: See Comments Comments: Hypotension, temporary SOB LISINOPRIL 12/01/2017 14 - Other: See Comments Comments: Hyperkalemia PENICILLINS 10/29/2010 2 - Rash FLONASE (FLUTICASONE PROPIONATE) 10/18/2021 14 - Other: See Comments Comments: Nose bleeds Date Reviewed: 07/05/2023 Reviewed by: Shira Rios MA - Fully Assessed Reason for Visit: Medication Problem [65] Visit Diagnosis:T (more content not included)... Normal [facility] 12 Lead EKGon 10-18-2023 12 Lead EKG [facility] Cardiovascular Services [address] [place] [address] 12 Lead EKG 10/18/231927 MR#: [id number] Acct: [id number] Name: KIEL CATHERINE Rep #: [id number] : 1960 63 From: Madhu Smith MD Attending Dr: Status: DEP ER Ordering Dr: J Carlos Correia DO Date: 10/18/23 Location: ED Sex: M C Admitted: Test Reason : Blood Pressure : / mmHG Vent. Rate : 075 BPM Atrial Rate : 075 BPM P-R Int : 162 ms QRS Dur : 076 ms QT Int : 394 ms P-R-T Axes : 039 -40 063 degrees QTc Int : 439 ms Normal sinus rhythm Left axis deviation Abnormal ECG Confirmed by MADHU SMITH MD ([id number]), state editor TONY MOE ([id number]) on 10/19/2023 1:51:14 PM Referred By: Confirmed By:MADHU SMITH MD 10/19/23 1351 Date Madhu Smith MD CC: Dr. J Carlos Correia DO; Dr. Alyson Arthur MD Signed [facility] Acetone Serumon 10-18-2023 ACETONE SERUM Negative Normal NEG [facility] Comment on above: Performed By: #### L 503.6005, L501.6900 #### [facility] [address] [place], [address] Basic Metabolic Profile (BMP )on 10-18-2023 BUN/CRE 19.2 RATIO Normal 10-20 [facility] Comment on above: Order Comment: 'TROP ' Serial specimen #1, #2 or #3: 1 Performed By: #### L 500.2500, L100.0100, L501.4020 #### [facility] [address] [place], [address] CA,Total 9.1 mg/dL Normal 8.5-10.1 [facility] Comment on above: Order Comment: 'TROP ' Serial specimen #1, #2 or #3: 1 Performed By: #### L 500.2500, L100.0100, L501.4020 #### [facility] [address] [place], [address] Chloride [Moles/Vol] 101 mmol/L Normal 98-107 [facility] Comment on above: Order Comment: 'TROP ' Serial specimen #1, #2 or #3: 1 Performed By: #### L 500.2500, L100.0100, L501.4020 #### [facility] [address] [place], [address] CO2 [Moles/Vol] 31.0 mmol/L Normal 21.0-32.0 [facility] Comment on above: Order Comment: 'TROP ' Serial specimen #1, #2 or #3: 1 Performed By: #### L 500.2500, L100.0100, L501.4020 #### [facility] [address] [place], [address] Creatinine [Mass/Vol] 1.04 mg/dL Normal 0.70-1.30 [facility] Comment on above: Order Comment: 'TROP ' Serial specimen #1, #2 or #3: 1 Result Comment: The validity of the calculated GFR GFRAA in patients over 70 years has not been determined. Clinical correlation is essential. Performed By: #### L 500.2500, L100.0100, L501.4020 #### [facility] [address] [place], [address] ECRCL 82.36 ml/min Normal [facility] Comment on above: Order Comment: 'TROP ' Serial specimen #1, #2 or #3: 1 Performed By: #### L 500.2500, L100.0100, L501.4020 #### [facility] [address] [place], [address] EST GFR - AA 93 mL/min Normal >60 [facility] Comment on above: Order Comment: 'TROP ' Serial specimen #1, #2 or #3: 1 Result Comment: Afri can [place] GFR Calc Performed By: #### L 500.2500, L100.0100, L501.4020 #### [facility] [address] [place], [address] GAP 5 Normal 5-15 [facility] Comment on above: Order Comment: 'TROP ' Serial specimen #1, #2 or #3: 1 Performed By: #### L 500.2500, L100.0100, L501.4020 #### [facility] [address] [place], [address] GFR/1.73 sq M.predicted among non-blacks MDRD (S/P/Bld) [Vol rate/Area] 77 mL/min/{1.73_m2} Normal >60 [facility] Comment on above: Order Comment: 'TROP ' Serial specimen #1, #2 or #3: 1 Result Comment: Non- GFR Calc Performed By: #### L 500.2500, L100.0100, L501.4020 #### [facility] [address] [place], [address] Glucose [Mass/Vol] 419 mg/dL High 74-106 [facility] Comment on above: Order Comment: 'TROP ' Serial specimen #1, #2 or #3: 1 Result Comment: Gluc ose result greater than or equal to 200 mg/dL suggests DIABETES MELLITUS per A.D.A. criteria. Performed By: #### L 500.2500, L100.0100, L501.4020 #### [facility] [address] [place], [address] Potassium [Moles/Vol] 4.4 mmol/L Normal 3.5-5.1 [facility] Comment on above: Order Comment: 'TROP ' Serial specimen #1, #2 or #3: 1 Performed By: #### L 500.2500, L100.0100, L501.4020 #### [facility] [address] [place], [address] Sodium [Moles/Vol] 137 mmol/L Normal 136-145 [facility] Comment on above: Order Comment: 'TROP ' Serial specimen #1, #2 or #3: 1 Performed By: #### L 500.2500, L100.0100, L501.4020 #### [facility] [address] [place], [address] Urea nitrogen [Mass/Vol] 20 mg/dL High 7-18 [facility] Comment on above: Order Comment: 'TROP ' Serial specimen #1, #2 or #3: 1 Performed By: #### L 500.2500, L100.0100, L501.4020 #### [facility] [address] [place], [address] Bedside Glucoseon 10-18-2023 FINGERSTICK GLU 289 mg/dL High 74-106 [facility] Comment on above: Result Comment: JOHN GEMENT OF PATIENT CARE PER NURSING PROTOCOL Performed By: #### L 501.080 #### [facility] [address] [place], [address] FINGERSTICK GLU 292 mg/dL High 74-106 [facility] Comment on above: Result Comment: JOHN GEMENT OF PATIENT CARE PER NURSING PROTOCOL Performed By: #### L 501.080 ####[facility] [address] [place], [address] FINGERSTICK GLU 403 mg/dL High 74-106 [facility] Comment on above: Result Comment: JOHN GEMENT OF PATIENT CARE PER NURSING PROTOCOL Performed By: #### L 501.080 #### [facility] [address] [place], [address] CBC W/Diff, Automatedon 09- Absolute Lymph 1.59 X10 3/uL Normal 0.83-4.51 [facility] Comment on above: Performed By: #### L 500.2500, L100.0100, L501.4020 #### [facility] [address] [place], [address] Absolute Neut 7.6 X10 3/uL Normal 2.0-7.7 [facility] Comment on above: Performed By: #### L 500.2500, L100.0100, L501.4020 #### [facility] [address] [place], [address] Basophils/100 WBC (Bld) 0.4 % Normal 0-1 [facility] Comment on above: Performed By: #### L 500.2500, L100.0100, L501.4020 #### [facility] [address] [place], [address] Eosinophils/100 WBC (Bld) 0.1 % Normal 0-5 [facility] Comment on above: Performed By: #### L 500.2500, L100.0100, L501.4020 #### [facility] [address] [place], [address] Erythrocyte distribution width (RBC) [Ratio] 12.4 % Normal 11.6-14.6 [facility] Comment on above: Performed By: #### L 500.2500, L100.0100, L501.4020 #### [facility] [address] [place], [address] Hematocrit (Bld) [Volume fraction] 43.9 % Normal 40-54 [facility] Comment on above: Performed By: #### L 500.2500, L100.0100, L501.4020 #### [facility] [address] [place], [address] Hemoglobin (Bld) [Mass/Vol] 14.6 g/dL Normal 13.0-16.5 [facility] Comment on above: Performed By: #### L 500.2500, L100.0100, L501.4020 #### [facility] [address] [place], [address] IG% 0.400 Normal 0.0-0.9 [facility] Comment on above: Result Comment: IG% - Immature Granulocytes (promyelocytes, myelocytes and metamyelocytes) > 1% indicates that a LEFT SHIFT is Present. Performed By: #### L 500.2500, L100.0100, L501.4020 #### [facility] [address] [place], [address] Lymphocytes/100 WBC (Bld) 15.8 % Low 19-41 [facility] Comment on above: Performed By: #### L 500.2500, L100.0100, L501.4020 #### [facility] [address] [place], [address] MCH (RBC) [Entitic mass] 30.1 pg Normal 27.0-32.0 [facility] Comment on above: Performed By: #### L 500.2500, L100.0100, L501.4020 #### [facility] [address] [place], [address] MCHC (RBC) [Mass/Vol] 33.3 g/dL Normal 32-36 [facility] Comment on above: Performed By: #### L 500.2500, L100.0100, L501.4020 #### [facility] [address] [place], [address] MCV (RBC) [Entitic vol] 90.5 fL Normal 80-94 [facility] Comment on above: Performed By: #### L 500.2500, L100.0100, L501.4020 #### [facility] [address] [place], [address] Monocytes/100 WBC (Bld) 7.8 % Normal 0-10 [facility] Comment on above: Performed By: #### L 500.2500, L100.0100, L501.4020 #### [facility] [address] [place], [address] Neutrophils/100 WBC (Bld) 75.5 % High 47-70 [facility] Comment on above: Performed By: #### L 500.2500, L100.0100, L501.4020 #### [facility] [address] [place], [address] Nucleated RBC (Bld) [#/Vol] 0 10*3/uL Normal 0-5 [facility] Comment on above: Performed By: #### L 500.2500, L100.0100, L501.4020 #### [facility] [address] [place], [address] Platelet mean volume (Bld) [Entitic vol] 11.2 fL Normal 6.2-12.0 [facility] Comment on above: Performed By: #### L 500.2500, L100.0100, L501.4020 #### [facility] [address] [place], [address] Platelets (Bld) [#/Vol] 229 10*3/uL Normal 150-450 [facility] Comment on above: Performed By: #### L 500.2500, L100.0100, L501.4020 #### [facility] [address] [place], [address] RBC (Bld) [#/Vol] 4.85 10*6/uL Normal 4.6-6.2 [facility] Comment on above: Performed By: #### L 500.2500, L100.0100, L501.4020 #### [facility] [address] [place], [address] RDW SD 41.2 fl Normal 35.1-43.9 [facility] Comment on above: Performed By: #### L 500.2500, L100.0100, L501.4020 #### [facility] [address] [place], [address] WBC (Bld) [#/Vol] 10.1 10*3/uL Normal 4.4-11.0 [facility] Comment on above: Performed By: #### L 500.2500, L100.0100, L501.4020 #### [facility] [address] [place], [address] Chest 1 View (Portable)on Chest 1 View (Portable) [facility] Imaging Services [address] [place] [address] Chest 1 View (Portable) MR#: [id number] Acct: [id number] Name: KIEL CATHERINE Rep #: [id number] : 1960 M 63 From: Gera stover DO PCP: Dr. Alyson Arthur MD Status: REG ER Study: Chest 1 View (Portable) Date of Exam: 10/18/23 Exam# [id number] Ordering Dr: J Carlos Correia DO [id number] EXAM: XR CHEST, 1 VIEW CLINICAL INDICATION: Hyperglycemia TECHNIQUE: Frontal view of the chest. COMPARISON: 10/09/2022 chest radiograph and CTA chest FINDINGS: LUNGS AND PLEURAL SPACES: Patchy bibasilar pulmonary opacities may be atelectasis or pneumonia. No pneumothorax. No effusion. HEART: No significant abnormality. Cardiac silhouette not enlarged. MEDIASTINUM: Central airways and mediastinal contour are unremarkable. BONES/JOINTS: Median sternotomy. No acute fracture. SOFT TISSUES: No significant abnormality. RAD/Chest 1 View (Portable) IMPRESSION: Patchy bibasilar pulmonary opacities may be atelectasis or pneumonia. Electronically Signed: Gera Delgado DO at 20:31 EDT , CC: Dr. J Carlos Correia DO; Dr. Alyson Arthur MD Missile Control Pilot: Signed [facility] Emergency Department Summary on 10-18-2023 Emergency Department Summary [facility] Medical Records Department [address] [place] [address] Emergency Department Summary 10/18/23 MR#: [id number] Acct: [id number] Name: KIEL CATHERINE Rep #: [id number] : 1960 63 From: J Carlos Correia DO PCP: Dr. Alyson Arthur MD Status:REG ER Location: ED HPI History of Present Illness Chief Complaint: Hyperglycemia [facility] Medical History (Updated 10/18/23 @ 19:07 by Bette Moore) Stroke Carpal tunnel syndrome, bilateral LVH (left ventricular hypertrophy) Essential (primary) hypertension Diabetic neuropathy Degenerative disc disease Atherosclerotic heart disease of [place] coronary artery without angina pectoris Bipolar 1 disorder Bicuspid aortic valve Atrial septal defect and mitral stenosis Anxiety Hearing loss, left Chronic pain Pancreatitis GERD (gastroesophageal reflux disease) Smoker CPAP (continuous positive airway pressure) dependence Asthma Leaky heart valve MANISH (obstructive sleep apnea) Morbid obesity HLD (hyperlipidemia) Type II diabetes mellitus History of carpal tunnel syndrome COPD (chronic obstructive pulmonary disease) Home Medications ???Medication ???Instructions ???Recorded ???Last Taken ???Type atorvastatin 10 mg tablet 10 mg PO QHS cholesterol 11/03/16 06/21/23 History budesonide-formoterol HFA 80 2 puff inhalation BID lung disease 10/30/20 06/22/23 History mcg-4.5 mcg/actuation aerosol inhaler pantoprazole 40 mg tablet,delayed 40 mg PO DAILY reflux 10/30/20 06/22/23 History release acetaminophen 500 mg tablet 1,000 mg PO TID PRN Pain 10/18/21 Unknown History albuterol sulfate 90 mcg/actuation 1 - 2 puff inhalation Q4H PRN PRN 10/18/21 Unknown Rx aerosol inhaler (Ventolin HFA) Wheezing #8.5 grams insulin aspart U-100 100 unit/mL 2 unit subcut TID diabetes 10/14/22 06/22/23 History (3 mL) subcutaneous pen (Novolog FlexPen U-100 Insulin aspart) insulin glargine 100 unit/mL (3 12 unit subcut .QAM diabetes 10/14/22 06/22/23 History mL) subcutaneous pen pregabalin 100 mg capsule (Lyrica) 100 mg PO DAILY NEUROPATHY 10/14/22 06/22/23 History amlodipine 5 mg tablet 5 mg PO DAILY blood pressure 06/22/23 06/22/23 History apixaban 5 mg tablet (Eliquis) 5 mg PO BID blood thinner 06/22/23 06/22/23 History aspirin 81 mg tablet,delayed 81 mg PO DAILY heart health 06/22/23 06/22/23 History release (Adult Aspirin Regimen) bumetanide 1 mg tablet 2 mg PO BID edema 06/22/23 06/22/23 History docusate sodium 100 mg capsule 100 mg PO DAILY PRN constipation 06/22/23 Unknown History (Col-Rite) metoprolol tartrate 25 mg tablet 37.5 mg PO Q12H blood pressure / 06/22/23 06/22/23 History heart dutfsdzn-wp-purnq 300 mcg-K 60 1 tab PO DAILY supplement 06/22/23 06/22/23 History mcg-lycop 600 mcg-lutein 300 mcg tablet (Centrum Silver Men) ondansetron HCl 4 mg tablet 4 mg PO Q8H PRN PRN nausea and 06/22/23 06/22/23 History vomiting pregabalin 200 mg capsule 200 mg PO DAILY nerve pain 06/22/23 06/22/23 History tramadol 50 mg tablet 50 mg PO Q6H PRN pain 06/22/23 06/22/23 History trazodone 50 mg tablet 50 mg PO QHS sleep 06/22/23 06/21/23 History calcium carbonate 500 mg (2.5 x 200 mg calcium (500 06/24/23 Unknown Rx mg)) PO Q6H PRN PRN HEARTBURN #0 tabs Allergy/AdvReac Type Severity Reaction Status Date / Time Penicillins Allergy Hives Verified 10/18/23 18:53 fluticasone (From Flonase) AdvReac Severe Nose Bleeds Verified 10/18/23 18:53 lisinopril AdvReac Intermediate Upset Verified 10/18/23 18:53 Stomach NASAL SPRAY AdvReac Intermediate Chest Uncoded 10/09/22 14:22 tightness Family History Father Diabetes Dementia Mother CAD (coronary artery disease) CABG X4 Sister Diabetes Brother Ischemic heart disease Brother Myocardial infarction Surgical History History of back surgery Social History (Updated 05/09/24 @ 20:25 by Veronique Diez) household members: spouse housing: house Smoking Status: Current every day smoker tobacco type: cigarettes Tobacco: How many years used: 45 alcohol intake: current alcohol intake frequency: holidays/special occasions only substance use type: does not use EXAM Physical Exam Const Vital Signs: 10/18/23 18:51 10/18/23 19:06 10/18/23 19:27 Temperature 97.2 F L Temperature Source Temporal Pulse Rate 77 76 Respiratory Rate 16 18 Respiratory Effort Normal Blood Pressure 82/71 L 121/59 H Blood Pressure Mean 74 79 Pulse Ox 94 93 Oxygen Delivery Method Room Air Room Air 10/18/23 19:41 10/18/23 21:00 Temperature Temperature Source Pulse Rate 76 74 Respiratory Rate 17 16 Respiratory Effor (more content not included)... [facility] L501.4020on 10-18-2023 TROPONIN-I HS 6 pg/mL Normal 3.0-78.0 [facility] Comment on above: Order Comment: 'TROP ' Serial specimen #1, #2 or #3: 1 Result Comment: Plea se Note: New Test Units and Gender Specific Reference Ranges. For more information see Policy Stat Procedure [facility] High Sensitivity Troponin (TNIH) and attachments. Performed By: #### L 500.2500, L100.0100, L501.4020 #### [facility] [address] [place], [address] Lactic Acidon 10-18-2023 Lactate [Moles/Vol] 2.0 mmol/L Normal 0.4-1.9 [facility] Comment on above: Order Comment: Y Performed By: #### L 503.6005, L501.6900 #### [facility] [address] [place], [address] Urinalysis, Completeon 10-17 EPI,SQUAMOUS 0-5 SEEN Normal 0-5 [facility] Comment on above: Order Comment: CLEAN CATCH Performed By: #### L 400.0001 ####[facility] [address] [place], [address] BACTERIA 0 SEEN Normal None Seen [facility] Comment on above: Order Comment: CLEAN CATCH Performed By: #### L 400.0001 ####[facility] [address] [place], [address] Mucus Ql (Urine sed) 0 SEEN Normal [facility] Comment on above: Order Comment: CLEAN CATCH Performed By: #### L 400.0001 ####[facility] [address] [place], [address] RBC 0 SEEN Normal 0-5 [facility] Comment on above: Order Comment: CLEAN CATCH Performed By: #### L 400.0001 ####[facility] [address] [place], [address] WBC 0 SEEN Normal 0-5 [facility] Comment on above: Order Comment: CLEAN CATCH Performed By: #### L 400.0001 ####[facility] [address] [facility] [address] Venous Blood Gason 4 Blood Gas Type KAYLIE Normal [facility] Comment on above: Performed By: #### L 9000.0810 ####[facility] [address] [place], [address] CO2 [Moles/Vol] 34 mmol/L High 23-33 [facility] Comment on above: Performed By: #### L 9000.0810 ####[facility] [address] [place], [address] FI02 21.0 Normal [facility] Comment on above: Performed By: #### L 9000.0810 ####[facility] [address] [place], [address] HCO3 (Bld) [Moles/Vol] 32 mmol/L High 22-26 [facility] Comment on above: Performed By: #### L 9000.0810 ####[facility] [address] [place], [address] O2 Delivery Dev Not entered Normal [facility] Comment on above: Performed By: #### L 9000.0810 ####[facility] [address] [place], [address] SITE Not entered Normal [facility] Comment on above: Performed By: #### L 9000.0810 ####[facility] [address] [place], [address] VBG BE 7 mmol/L High -1.0-3.5 [facility] Comment on above: Performed By: #### L 9000.0810 ####[facility] [address] [place], [address] VBG pCO2 59.0 mmHg High 41-51 [facility] Comment on above: Performed By: #### L 9000.0810 ####[facility] [address] [place], [address] VBG pH 7.35 Normal 7.32-7.42 [facility] Comment on above: Performed By: #### L 9000.0810 ####[facility] [address] [place], [address] VBG PO2 37 mmHg Normal 25-40 [facility] Comment on above: Performed By: #### L 9000.0810 ####[facility] [address] [place], [address] VBG SO2 66 Normal 50-70 [facility] Comment on above: Performed By: #### L 9000.0810 ####[facility] [address] [place], [address] CTA Chest vessels W contrast Jasmeet 06-27-2023 IMPRESSION: The patient has undergone AVR (27 Epic plus) and Ascending repair (28 jazz-shield) on 03/20/2023. There are no findings to suggest anastomotic stenosis, infection, or leak. There are the typical postoperative changes present. Overall, the findings are appropriate for the recent postoperative state. Missile Control Pilot: PSCPriyank Transcribe Date/Time: Jun 27 2023 1:24P Dictated by : JIMY HERMOSILLO DO This examination was interpreted and the report reviewed and electronically signed by: JIMY HERMOSILLO DO on Jun 27 2023 2:47PM [facility] DIVISION OF RADIOLOGY * * *Final Report* * * DATE OF EXAM: Jun 27 2023 1:15PM JQC 0125 - CTA CHEST (GATED) W IVCON / PROCEDURE REASON: 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) * * * * Physician Interpretation * * * * CTA Aorta chest Direct Image Comparison: 11/24/2022 HISTORY: 62 years old Male S/P AVR (27 Epic plus) and Ascending repair (28 jazz-shield) 03/20/2023. Evaluation for interval change. There is request to define thoracic and aortic anatomy TECHNIQUE: SCANNER: Siemens [employer] Alpha photon-counting dual-source scanner PROTOCOL: Prospectively triggered helical high-pitch acquisitions (triggered Flash-mode) was performed following the intravenous administration of contrast material. Scan Range: thoracic inlet to the diaphragm CT Dose-Length Product (DLP): 237 mGy*cm CT Dose Reduction Employed: Automated exposure control (AEC) CONTRAST: IV administration of 80 ml Omnipaque 350 Scan acquisition: uncomplicated For optimization of anatomic evaluation, advanced 3-D off-line postprocessing was performed on a dedicated workstation by the interpreting physician. STUDY LIMITATIONS: Limited chest field of view due to positioning and reported inability to raise arms RESULT: LINES, TUBES and DEVICES: None CHEST: Chest wall anatomy: evidence of median sternotomy with sternal wires in place. LUNGS: unremarkable. MEDIASTINUM: expected post-operative changes. PERICARDIUM: unremarkable CENTRAL PULMONARY ARTERY: normal dimensions, assessment is limited due to limited contrast enhancement CARDIAC CHAMBERS: LEFT VENTRICLE: normal size Right ventricle: normal size Left atrium: normal size. NERI: normal Right atrium: normal size CENTRAL VENOUS and PULMONARY VENOUS RETURN: normal Coronary Sinus: normal size MITRAL and TRICUSPID VALVE: Assessment is limited in the current study no leaflet calcification, No annular calcification PULMONIC VALVE: Assessment is limited in the current study. No leaflet calcification CORONARY ANATOMY: Normal origin of the coronary arteries Mild calcified atherosclerotic changes of the coronary arteries. However, the current study is not optimized for coronary assessment. AORTIC VALVE: AVR with BIOPROSTHETIC VALVE, valve ring #27; no leaflet calcification AORTA: Size: Normal size thoracic aorta beyond the graft. Pathology: No acute aortic pathology. supra-coronary graft ascending aorta STJ: maintained Wall Changes: no evidence of wall changes. Arch Branch Vessels: Patent, normal size proximal segments of the arch branch vessels. Common origin of the innominate and left carotid artery and separate origin of the left vertebral artery. AORTIC DIMENSIONS: AORTIC ROOT: 4.0 cm measured [id number] mid ASCENDING THORACIC AORTA: graft distal ASCENDING THORACIC AORTA: 2.9 cm mid AORTIC ARCH: 2.3 cm mid DESCENDING THORACIC AORTA: 3.0 cm limited upper ABDOMEN: unremarkable BONES: degenerative changes of the thoracic spine Global Sales Manager (topogram) images: No additional findings. DIVISION OF RADIOLOGY Provider, [facility] - 06/27/2023 * * *Final Report* * * DATE OF EXAM: Jun 27 2023 1:15PM JQC 0125 - CTA CHEST (GATED) W IVCON / PROCEDURE REASON: 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) * * * * Physician Interpretation * * * * CTA Aorta chest Direct Image Comparison: 11/24/2022 HISTORY: 62 years old Male S/P AVR (27 Epic plus) and Ascending repair (28 jazz-shield) 03/20/2023. Evaluation for interval change. There is request to define thoracic and aortic anatomy TECHNIQUE: SCANNER: Siemens [employer] Alpha photon-counting dual-source scanner PROTOCOL: Prospectively triggered helical high-pitch acquisitions (triggered Flash-mode) was performed following the intravenous administration of contrast material. Scan Range: thoracic inlet to the diaphragm CT Dose-Length Product (DLP): 237 mGy*cm CT Dose Reduction Employed: Automated exposure control (AEC) CONTRAST: IV administration of 80 ml Omnipaque 350 Scan acquisition: uncomplicated For optimization of anatomic evaluation, advanced 3-D off-line postprocessing was performed on a dedicated workstation by the interpreting physician. STUDY LIMITATIONS: Limited chest field of view due to positioning and reported inability to raise arms RESULT: LINES, TUBES and DEVICES: None CHEST: Chest wall anatomy: evidence of median sternotomy with sternal wires in place. LUNGS: unremarkable. MEDIASTINUM: expected post-operative changes. PERICARDIUM: unremarkable CENTRAL PULMONARY ARTERY: normal dimensions, assessment is limited due to limited contrast enhancement CARDIAC CHAMBERS: LEFT VENTRICLE: normal size Right ventricle: normal size Left atrium: normal size. NERI: normal Right atrium: normal size CENTRAL VENOUS and PULMONARY VENOUS RETURN: normal Coronary Sinus: normal size MITRAL and TRICUSPID VALVE: Assessment is limited in the current study no leaflet calcification, No annular calcification PULMONIC VALVE: Assessment is limited in the current study. No leaflet calcification CORONARY ANATOMY: Normal origin of the coronary arteries Mild calcified atherosclerotic changes of the coronary arteries. However, the current study is not optimized for coronary assessment. AORTIC VALVE: AVR with BIOPROSTHETIC VALVE, valve ring #27; no leaflet calcification AORTA: Size: Normal size thoracic aorta beyond the graft. Pathology: No acute aortic pathology. supra-coronary graft ascending aorta STJ: maintained Wall Changes: no evidence of wall changes. Arch Branch Vessels: Patent, normal size proximal segments of the arch branch vessels. Common origin of the innominate and left carotid artery and separate origin of the left vertebral artery. AORTIC DIMENSIONS: AORTIC ROOT: 4.0 cm measured [id number] mid ASCENDING THORACIC AORTA: graft distal ASCENDING THORACIC AORTA: 2.9 cm mid AORTIC ARCH: 2.3 cm mid DESCENDING THORACIC AORTA: 3.0 cm limited upper ABDOMEN: unremarkable BONES: degenerative changes of the thoracic spine Global Sales Manager (topogram) images: No additional findings. IMPRESSION IMPRESSION: The patient has undergone AVR (27 Epic plus) and Ascending repair (28 jazz-shield) on 03/20/2023. There are no findings to suggest anastomotic stenosis, infection, or leak. There are the typical postoperative changes present. Overall, the findings are appropriate for the recent postoperative state. Missile Control Pilot: TOMMY Transcribe Date/Time: Jun 27 2023 1:24P Dictated by : JIMY HERMOSILLO DO This examination was interpreted and the report reviewed and electronically signed by: JIMY HERMOSILLO DO on Jun 27 2023 2:47PM EST [facility] Radiology Study observation (narrative) [facility] CTA Chest vessels W contrast IVOrdered By: [facility]cf Provider on 06-27-2023 [facility] Absolute lymphocyte countOrd ered By: Trip Fraire on 06-24-2023 Lymphocytes Auto (Unsp spec) [#/Vol] 1.49 10*3/uL 0.83-4.51 [facility] Automated lymphocyte count a s percentage of total leukocytesOrdered By: Trip Fraire on 06-24-2023 Lymphocytes/100 WBC Auto (Unsp spec) 24.7 % 19-41 [facility] Basophil percentageOrdered B y: Trip Fraire on 06-24-2023 Basophils/100 WBC (Bld) 0.8 % 0-1 [facility] Chloride [Moles/Vol] 101 mmol/L 98-107 [facility] Eosinophils/100 WBC (Bld) 1.2 % 0-5 [facility] Glucose [Mass/Vol] 169 mg/dL 74-106 [facility] Comment on above: Fasting Glucose resu lt greater than or equal to 126 mg/dL suggests DIABETES MELLITUS per A.D.A. criteria. Hemoglobin (Bld) [Mass/Vol] 12.6 g/dL 13.0-16.5 [facility] Monocytes/100 WBC (Bld) 11.6 % 0-10 [facility] Neutrophils (Bld) [#/Vol] 3.7 10*3/uL 2.0-7.7 [facility] Neutrophils/100 WBC (Bld) 61.5 % 47-70 [facility] Potassium [Moles/Vol] 2.8 mmol/L 3.5-5.1 [facility] Sodium [Moles/Vol] 137 mmol/L 136-145 [facility] WBC (Bld) [#/Vol] 6.0 10*3/uL 4.4-11.0 [facility] Determination of erythrocyte mean corpuscular volume (MCV)Ordered By: Trip Fraire on 06-24-2023 MCV (RBC) [Entitic vol] 89.9 fL 80-94 [facility] Erythrocyte distribution wid th ratioOrdered By: Trip Fraire on 06-24-2023 Erythrocyte distribution width (RBC) [Ratio] 14.3 % 11.6-14.6 [facility] Erythrocyte distribution wid th standard deviationOrdered By: Trip Fraire on 06-24-2023 Erythrocyte distribution width (RBC) [Entitic vol] 46.9 fL 35.1-43.9 [facility] Hematocrit Auto (Bld) [Volum e fraction]Ordered By: Trip Fraire on 06-24-2023 Hematocrit (Bld) [Volume fraction] 39.3 % 40-54 [facility] Immature granulocytes/100 WB C Auto (Bld)Ordered By: Trip Fraire on 06-24-2023 Immature granulocytes/100 WBC (Bld) 0.200 % 0.0-0.9 [facility] Comment on above: IG% - Immature Granu locytes (promyelocytes, myelocytes and metamyelocytes) > 1% indicates that a LEFT SHIFT is Present. Laboratory - Chemistry and C hemistry - challengeOrdered By: Trip Fraire on 06-24-2023 CO2 [Moles/Vol] 29.0 mmol/L 21.0-32.0 [facility] Urea nitrogen/Creatinine [Mass ratio] 28.6 mg/mg 10-20 [facility] - Hematology and Cell countsOrdered By: Trip Fraire on 06-24-2023 MCH (RBC) [Entitic mass] 28.8 pg 27.0-32.0 [facility] MCHC (RBC) [Mass/Vol] 32.1 g/dL 32-36 [facility] Nucleated RBC/100 WBC (Bld) [Ratio] 0 % 0-5 [facility] Platelet mean volume (Bld) [Entitic vol] 10.9 fL 6.2-12.0 [facility] Platelets (Bld) [#/Vol] 227 10*3/uL 150-450 [facility] No Panel InformationOrdered By: Trip Fraire on 06-24-2023 Estimated Creatinine Clearance Calc 104.03 ml/min [facility] Estimated GFR (MDRD) Amer 120 mL/min >60 [facility] Comment on above: GFR Calc Estimated GFR (MDRD) Non-Af Amer 99 mL/min >60 [facility] Comment on above: Non- GFR Calc RBC Auto (Bld) [#/Vol]Ordere d By: Trip Fraire on 06-24-2023 RBC (Bld) [#/Vol] 4.37 10*6/uL 4.6-6.2 [facility] Serum or plasma calcium zay urement (mass/volume)Ordered By: Trip Fraire on 06-24-2023 Calcium [Mass/Vol] 8.7 mg/dL 8.5-10.1 [facility] Serum or plasma creatinine m easurement (mass/volume)Ordered By: Trip Fraire on 06-24-2023 Creatinine [Mass/Vol] 0.84 mg/dL 0.70-1.30 [facility] Comment on above: The validity of the calculated GFR & GFRAA in patients over 70 years has not been determined. Clinical correlation is essential. Serum or plasma urea nitroge n measurement (mass/volume)Ordered By: Trip Fraire on 06-24-2023 Urea nitrogen [Mass/Vol] 24 mg/dL 7-18 [facility] Thin prep Papanicolaou smear with manual screeningOrdered By: Trip Fraire on 06-24-2023 Thin prep Papanicolaou smear with manual screening 235 mg/dL 74-106 [facility] Comment on above: MANAGEMENT OF PATIEN T CARE PER NURSING PROTOCOL Thin prep Papanicolaou smear with manual screening 7 5-15 [facility] Absolute lymphocyte countOrd ered By: Carmen Matthews on 06-22-2023 Lymphocytes Auto (Unsp spec) [#/Vol] 1.61 10*3/uL 0.83-4.51 [facility] Automated lymphocyte count a s percentage of total leukocytesOrdered By: Carmen Matthews on 06-22-2023 Lymphocytes/100 WBC Auto (Unsp spec) 12.5 % 19-41 [facility] Basophil percentageOrdered B y: Carmen Matthews on 06-22-2023 Basophil percentage 0-5 SEEN /hpf 0-5 [facility] Basophils/100 WBC (Bld) 0.4 % 0-1 [facility] Bilirubin [Mass/Vol] 0.50 mg/dL 0.20-1.00 [facility] Comment on above: For patients on eltr ombopag therapy, use of Dimension [facility] TBIL is not recommended. Chloride [Moles/Vol] 97 mmol/L 98-107 [facility] Eosinophils/100 WBC (Bld) 0.1 % 0-5 [facility] Glucose [Mass/Vol] 305 mg/dL 74-106 [facility] Comment on above: Glucose result great er than or equal to 200 mg/dLsuggests DIABETES MELLITUS per A.D.A. criteria. Hemoglobin (Bld) [Mass/Vol] 16.0 g/dL 13.0-16.5 [facility] Monocytes/100 WBC (Bld) 9.6 % 0-10 [facility] Neutrophils (Bld) [#/Vol] 9.9 10*3/uL 2.0-7.7 [facility] Neutrophils/100 WBC (Bld) 77.0 % 47-70 [facility] Potassium [Moles/Vol] 3.6 mmol/L 3.5-5.1 [facility] Protein [Mass/Vol] 7.4 g/dL 6.4-8.2 [facility] Sodium [Moles/Vol] 136 mmol/L 136-145 [facility] WBC (Bld) [#/Vol] 12.8 10*3/uL 4.4-11.0 [facility] Bilirubin Test strip Ql (U)O rdered By: Carmen Matthews on 06-22-2023 Bilirubin Ql (U) 3 mg/dL Negative [facility] Comment on above: COLOR OF URINE MAY A FFECT DIPSTICK RESULTS. Determination of erythrocyte mean corpuscular volume (MCV)Ordered By: Carmen Matthews on 06-22-2023 MCV (RBC) [Entitic vol] 86.9 fL 80-94 [facility] Direct bilirubinOrdered By: Carmen Matthews on 06-22-2023 Bilirubin.direct [Mass/Vol] 0.20 mg/dL 0.00-0.30 [facility] Erythrocyte distribution wid th ratioOrdered By: Carmen Matthews on 06-22-2023 Erythrocyte distribution width (RBC) [Ratio] 14.2 % 11.6-14.6 [facility] Erythrocyte distribution wid th standard deviationOrdered By: Carmen Matthews on 06-22-2023 Erythrocyte distribution width (RBC) [Entitic vol] 45.3 fL 35.1-43.9 [facility] Hematocrit Auto (Bld) [Volum e fraction]Ordered By: Carmen Matthews on 06-22-2023 Hematocrit (Bld) [Volume fraction] 47.8 % 40-54 [facility] Hyaline casts LM.LPF (Urine sed) [#/Area]Ordered By: Carmen Matthews on 06-22-2023 Hyaline casts (Urine sed) [#/Area] 0 /[LPF] 0-5 [facility] Immature granulocytes/100 WB C Auto (Bld)Ordered By: Carmen Matthews on 06-22-2023 Immature granulocytes/100 WBC (Bld) 0.400 % 0.0-0.9 [facility] Comment on above: IG% - Immature Granu locytes (promyelocytes, myelocytes and metamyelocytes) > 1% indicates that a LEFT SHIFT is Present. Ketones Test strip Ql (U)Ord ered By: Carmen Matthews on 06-22-2023 Ketones Ql (U) 5 mg/dl Negative [facility] - Chemistry and C hemistry - challengeOrdered By: Carmen Matthews on 06-22-2023 ALP [Catalytic activity/Vol] 129 U/L 45-117 [facility] ALT [Catalytic activity/Vol] 14 U/L 16-61 [facility] CO2 [Moles/Vol] 28.0 mmol/L 21.0-32.0 [facility] Globulin (S) [Mass/Vol] 4.5 g/dL 2.2-4.2 [facility] Lipase [Catalytic activity/Vol] 11 U/L 13-75 [facility] Comment on above: Please note:LIPASE r evised reference range effective 22. New Lipase methodology. Expected to produce lower values than the previous assay method. NEW Reference Range: 13 - 75 U/L Urea nitrogen/Creatinine [Mass ratio] 24.0 mg/mg 10-20 [facility] - Hematology and Cell countsOrdered By: Carmen Matthews on 06-22-2023 MCH (RBC) [Entitic mass] 29.1 pg 27.0-32.0 [facility] MCHC (RBC) [Mass/Vol] 33.5 g/dL 32-36 [facility] Nucleated RBC/100 WBC (Bld) [Ratio] 0 % 0-5 [facility] Platelet mean volume (Bld) [Entitic vol] 10.9 fL 6.2-12.0 [facility] Platelets (Bld) [#/Vol] 352 10*3/uL 150-450 [facility] Mucus LM Ql (Urine sed)Order ed By: Carmen Matthews on 06-22-2023 Mucus Ql (Urine sed) 0 SEEN /hpf [facility] Nitrite Test strip Ql (U)Ord ered By: Carmen Matthews on 06-22-2023 Nitrite Ql (U) Negative Negative [facility] No Panel InformationOrdered By: Caremn Matthews on 06-22-2023 Urine RBC 0-5 SEEN /hpf 0-5 [facility] Estimated Creatinine Clearance Calc 67.87 ml/min [facility] Estimated GFR (MDRD) Amer 75 mL/min >60 [facility] Comment on above: GFR Calc Estimated GFR (MDRD) Non-Af Amer 62 mL/min >60 [facility] Comment on above: Non- GFR Calc Protein Test strip Ql (U)Ord ered By: Carmen Matthews on 06-22-2023 Protein Ql (U) 30 mg/dl Negative [facility] RBC Auto (Bld) [#/Vol]Ordere d By: Carmen Matthews on 06-22-2023 RBC (Bld) [#/Vol] 5.50 10*6/uL 4.6-6.2 [facility] Serum or plasma calcium zay urement (mass/volume)Ordered By: Carmen Matthews on 06-22-2023 Calcium [Mass/Vol] 9.5 mg/dL 8.5-10.1 [facility] Serum or plasma creatinine m easurement (mass/volume)Ordered By: Carmen Matthews on 06-22-2023 Creatinine [Mass/Vol] 1.25 mg/dL 0.70-1.30 [facility] Comment on above: The validity of the calculated GFR & GFRAA in patients over 70 years has not been determined. Clinical correlation is essential. Serum or plasma urea nitroge n measurement (mass/volume)Ordered By: Carmen Matthews on 06-22-2023 Urea nitrogen [Mass/Vol] 30 mg/dL 7-18 [facility] Squamous epithelial cells de tection in urine sediment by light microscopyOrdered By: Carmen Matthews on 06-22-2023 Epithelial cells.squamous LM Ql (Urine sed) 0-5 SEEN /hpf 0-5 [facility] Thin prep Papanicolaou smear with manual screeningOrdered By: Carmen Matthews on 06-22-2023 Thin prep Papanicolaou smear with manual screening 2.9 g/dL 3.2-5.0 [facility] Thin prep Papanicolaou smear with manual screening 16 U/L 15-37 [facility] Thin prep Papanicolaou smear with manual screening 11 5-15 [facility] Urine blood detectionOrdered By: Carmen Matthews on 06-22-2023 RBC Ql (U) Negative Negative [facility] Urine clarityOrdered By: Olimpia Matthews on 06-22-2023 Clarity (U) Clear Clear [facility] Urine color determinationOrd ered By: Carmen Matthews on 06-22-2023 Color (U) Yellow Yellow [facility] Urine glucose detectionOrder ed By: Carmen Matthews on 06-22-2023 Glucose Ql (U) Normal mg/dl Normal [facility] Urine leukocyte esterase det ection by dipstickOrdered By: Carmen Matthews on 06-22-2023 Leukocyte esterase Test strip Ql (U) Negative Negative [facility] Urine pHOrdered By: Carmen Matthews on 06-22-2023 pH (U) 5.0 [pH] 5.0 - 8.0 [facility] Urine sediment bacteria coun t by microscopy (number/high power field)Ordered By: Carmen Matthews on 06-22-2023 Bacteria LM.HPF (Urine sed) [#/Area] 1 /[HPF] None Seen [facility] Urine specific gravity measu rementOrdered By: Carmen Matthews on 06-22-2023 Specific gravity (U) [Rel density] 1.025 1.002-1.03 0 [facility] Urine urobilinogen measureme ntOrdered By: Carmen Matthews on 06-22-2023 Urobilinogen Ql (U) 1 mg/dl Normal [facility] Whole blood hemoglobin A1c/t otal hemoglobin ratio (mass fraction)Ordered By: Patrick Sharma on 06-22-2023 HbA1c (Bld) [Mass fraction] 7.3 % 3.8-5.6 [facility] Comment on above: Normal < 5.7 % Predi abetic 5.7 - 6.4 % Diabetic >or= 6.5 % Please note range changes. No Panel Informationon 05-28 IMPRESSION: No acute osseous abnormality Missile Control Pilot: TOMMY Transcribe Date/Time: May 29 2023 1:29P Dictated by : LILIA MITCHELL MD This examination was interpreted and the report reviewed and electronically signed by: LILIA MITCHELL MD on May 29 2023 1:33PM [facility] DIVISION OF RADIOLOGY Radiology Study observation (narrative) [facility] No Panel InformationOrdered By: Ccf Provider on 05-29-2023 [facility] XR Hand - right PA and Later al and Obliqueon 05-29-2023 * * *Final Report* * * DATE OF EXAM: May 29 2023 1:16PM WOX 5346 - XR HAND 3V PA/LAT/OBL RT / PROCEDURE REASON: Wrist pain, acute, right * * * * Physician Interpretation * * * * EXAMINATION: XR HAND 3V PA/LAT/OBL RT, XR WRIST 4V PA/LAT/OBL/SCAPH RT CLINICAL HISTORY: Right hand and right wrist pain Technique: XR HAND 3V PA/LAT/OBL RT, XR WRIST 4V PA/LAT/OBL/SCAPH RT -- RIGHT with 3 (accession [id number]), 4 (accession [id number]) views on 3 (accession [id number]), 4 (accession [id number]) images Comparison: None RESULT: No acute fracture or dislocation. Mild narrowing at multiple interphalangeal joints with small marginal osteophytes. DIVISION OF RADIOLOGY Provider, [facility] - 05/29/2023 * * *Final Report* * * DATE OF EXAM: May 29 2023 1:16PM WOX 5346 - XR HAND 3V PA/LAT/OBL RT / PROCEDURE REASON: Wrist pain, acute, right * * * * Physician Interpretation * * * * EXAMINATION: XR HAND 3V PA/LAT/OBL RT, XR WRIST 4V PA/LAT/OBL/SCAPH RT CLINICAL HISTORY: Right hand and right wrist pain Technique: XR HAND 3V PA/LAT/OBL RT, XR WRIST 4V PA/LAT/OBL/SCAPH RT -- RIGHT with 3 (accession [id number]), 4 (accession [id number]) views on 3 (accession [id number]), 4 (accession [id number]) images Comparison: None RESULT: No acute fracture or dislocation. Mild narrowing at multiple interphalangeal joints with small marginal osteophytes. IMPRESSION IMPRESSION: No acute osseous abnormality Missile Control Pilot: TOMMY Transcribe Date/Time: May 29 2023 1:29P Dictated by : LILIA MITCHELL MD This examination was interpreted and the report reviewed and electronically signed by: LILIA MITCHELL MD on May 29 2023 1:33PM [facility] XR Wrist - right 4 Viewson 0 05-29-2023 * * *Final Report* * * DATE OF EXAM: May 29 2023 1:16PM WOX 5273 - XR WRIST 4V PA/LAT/OBL/SCAPH RT / PROCEDURE REASON: Wrist pain, acute, right * * * * Physician Interpretation * * * * EXAMINATION: XR HAND 3V PA/LAT/OBL RT, XR WRIST 4V PA/LAT/OBL/SCAPH RT CLINICAL HISTORY: Right hand and right wrist pain Technique: XR HAND 3V PA/LAT/OBL RT, XR WRIST 4V PA/LAT/OBL/SCAPH RT -- RIGHT with 3 (accession [id number]), 4 (accession [id number]) views on 3 (accession [id number]), 4 (accession [id number]) images Comparison: None RESULT: No acute fracture or dislocation. Mild narrowing at multiple interphalangeal joints with small marginal osteophytes. DIVISION OF RADIOLOGY Provider, [facility] - 05/29/2023 * * *Final Report* * * DATE OF EXAM: May 29 2023 1:16PM WOX 5273 - XR WRIST 4V PA/LAT/OBL/SCAPH RT / PROCEDURE REASON: Wrist pain, acute, right * * * * Physician Interpretation * * * * EXAMINATION: XR HAND 3V PA/LAT/OBL RT, XR WRIST 4V PA/LAT/OBL/SCAPH RT CLINICAL HISTORY: Right hand and right wrist pain Technique: XR HAND 3V PA/LAT/OBL RT, XR WRIST 4V PA/LAT/OBL/SCAPH RT -- RIGHT with 3 (accession [id number]), 4 (accession [id number]) views on 3 (accession [id number]), 4 (accession [id number]) images Comparison: None RESULT: No acute fracture or dislocation. Mild narrowing at multiple interphalangeal joints with small marginal osteophytes. IMPRESSION IMPRESSION: No acute osseous abnormality Missile Control Pilot[facility] Transcribe Date/Time: May 29 2023 1:29P Dictated by : LILIA MITCHELL MD This examination was interpreted and the report reviewed and electronically signed by: LILIA MITCHELL MD on May 29 2023 1:33PM EST [facility] XR Abdomen Supine and Uprigh ton 05-23-2023 IMPRESSION: Nonobstr uctive bowel gas pattern. Missile Control Pilot: [facility] Transcribe Date/Time: May 23 2023 5:22P Dictated by : MADAN ZACARIAS MD This examination was interpreted and the report reviewed and electronically signed by: MADAN ZACARIAS MD on May 23 2023 5:23PM EST DIVISION OF RADIOLOGY * * *Final Report* * * DATE OF EXAM: May 22 2023 11:02AM WOX 5289 - XR ABDOMEN 1V SUPINE / PROCEDURE REASON: Small bowel obstruction (HCC) * * * * Physician Interpretation * * * * EXAM TITLE: XR ABDOMEN 1V SUPINE EXAM DATE/TIME: 05/22/2023 11:02 AM COMPARISON: None. CLINICAL INDICATION/HISTORY: Small bowel obstruction. TECHNIQUE: AP views of the abdomen are presented. FINDINGS: No abnormally dilated bowel loops identified. The study is inadequate for the evaluation of free abdominal air. There are no abnormal calcifications. Status post lower lumbar spinal fusion. The spine shows advanced degenerative changes. DIVISION OF RADIOLOGY Provider, [facility] - 05/23/2023 * * *Final Report* * * DATE OF EXAM: May 22 2023 11:02AM WOX 5289 - XR ABDOMEN 1V SUPINE / PROCEDURE REASON: Small bowel obstruction (HCC) * * * * Physician Interpretation * * * * EXAM TITLE: XR ABDOMEN 1V SUPINE EXAM DATE/TIME: 05/22/2023 11:02 AM COMPARISON: None. CLINICAL INDICATION/HISTORY: Small bowel obstruction. TECHNIQUE: AP views of the abdomen are presented. FINDINGS: No abnormally dilated bowel loops identified. The study is inadequate for the evaluation of free abdominal air. There are no abnormal calcifications. Status post lower lumbar spinal fusion. The spine shows advanced degenerative changes. IMPRESSION IMPRESSION: Nonobstructive bowel gas pattern. Missile Control Pilot: TOMMY Transcribe Date/Time: May 23 2023 5:22P Dictated by : MADAN ZACARIAS MD This examination was interpreted and the report reviewed and electronically signed by: MADAN ZACARIAS MD on May 23 2023 5:23PM EST [facility] CBC W Auto Differential pane l (Bld)on 05-22-2023 Basophils (Bld) [#/Vol] 0.06 10*3/uL <0.11 k/uL [facility] Basophils/100 WBC (Bld) 0.5 % [facility] Differential cell count method Nom (Bld) Auto [facility] Eosinophils (Bld) [#/Vol] 0.07 10*3/uL <0.46 k/uL [facility] Eosinophils/100 WBC (Bld) 0.6 % [facility] Erythrocyte distribution width (RBC) [Ratio] 14.2 % 11.5 - 15.0 % [facility] Hematocrit (Bld) [Volume fraction] 44.1 % 39.0 - 51.0 % [facility] Hemoglobin (Bld) [Mass/Vol] 14.4 g/dL 13.0 - 17.0 g/dL [facility] Immature granulocytes (Bld) [#/Vol] 0.04 10*3/uL <0.10 k/uL [facility] Immature granulocytes/100 WBC (Bld) 0.4 % [facility] Lymphocytes (Bld) [#/Vol] 1.10 10*3/uL 1.00 - 4.00 k/uL [facility] Lymphocytes/100 WBC (Bld) 9.8 % [facility] MCH (RBC) [Entitic mass] 29.7 pg 26.0 - 34.0 pg [facility] MCHC (RBC) [Mass/Vol] 32.7 g/dL 30.5 - 36.0 g/dL [facility] MCV (RBC) [Entitic vol] 90.9 fL 80.0 - 100.0 fL [facility] Monocytes (Bld) [#/Vol] 0.54 10*3/uL <0.87 k/uL [facility] Monocytes/100 WBC (Bld) 4.8 % [facility] Neutrophils (Bld) [#/Vol] 9.36 10*3/uL High 1.45 - 7.50 k/uL [facility] Neutrophils/100 WBC (Bld) 83.9 % [facility] Nucleated RBC (Bld) [#/Vol] <0.01 k/uL [facility] Nucleated RBC/100 WBC (Bld) [Ratio] 0.0 /100 WBC [facility] Platelet mean volume (Bld) [Entitic vol] 11.0 fL 9.0 - 12.7 fL [facility] Platelets (Bld) [#/Vol] 195 10*3/uL 150 - 400 k/uL [facility] RBC (Bld) [#/Vol] 4.85 10*6/uL 4.20 - 6.00 m/uL [facility] WBC (Bld) [#/Vol] 11.17 10*3/uL High 3.70 - 11.00 k/uL [facility] HbA1c (Bld)on 05-22-2023 Average glucose Estimated from glycated hemoglobin (Bld) [Mass/Vol] 140 mg/dL [facility] HbA1c (Bld) [Mass fraction] 6.5 % High 4.3 - 5.6 % [facility] No Panel Informationon 05-21 Radiology Study observation (narrative) [facility] XR Chest PA and Lateralon IMPRESSION: Pulmonary vascular congestion. Cardiomegaly Missile Control Pilot: TOMMY Transcribe Date/Time: May 22 2023 4:06P Dictated by : IVETH SINGH MD This examination was interpreted and the report reviewed and electronically signed by: IVETH SINGH MD on May 22 2023 4:07PM [facility] DIVISION OF RADIOLOGY * * *Final Report* * * DATE OF EXAM: May 22 2023 11:02AM WOX 5291 - XR CHEST 2V FRONTAL/LAT / PROCEDURE REASON: Pleural effusion * * * * Physician Interpretation * * * * EXAMINATION: CHEST RADIOGRAPH (2 VIEW FRONTAL & LATERAL) CLINICAL HISTORY: Pleural effusion MQ: XC2_6 EXAM DATE/TIME: 05/22/2023 11:02 AM COMPARISON: 04/04/2023 and 03/26/2023 RESULT: Lines, tubes, and devices: Mediastinal wires are in place Lungs and pleura: Pulmonary vascular congestion. No significant interstitial or alveolar edema. No significant pleural fluid. No pneumothorax Cardiomediastinal silhouette: Stable enlarged cardiomediastinal silhouette. Bones and soft tissues: Several lower thoracic vertebral compression fractures are stable. DIVISION OF RADIOLOGY Provider, [facility] - 05/22/2023 * * *Final Report* * * DATE OF EXAM: May 22 2023 11:02AM WOX 5291 - XR CHEST 2V FRONTAL/LAT / PROCEDURE REASON: Pleural effusion * * * * Physician Interpretation * * * * EXAMINATION: CHEST RADIOGRAPH (2 VIEW FRONTAL & LATERAL) CLINICAL HISTORY: Pleural effusion MQ: XC2_6 EXAM DATE/TIME: 05/22/2023 11:02 AM COMPARISON: 04/04/2023 and 03/26/2023 RESULT: Lines, tubes, and devices: Mediastinal wires are in place Lungs and pleura: Pulmonary vascular congestion. No significant interstitial or alveolar edema. No significant pleural fluid. No pneumothorax Cardiomediastinal silhouette: Stable enlarged cardiomediastinal silhouette. Bones and soft tissues: Several lower thoracic vertebral compression fractures are stable. IMPRESSION IMPRESSION: Pulmonary vascular congestion. Cardiomegaly Missile Control Pilot: [facility] Transcribe Date/Time: May 22 2023 4:06P Dictated by : IVETH SINGH MD This examination was interpreted and the report reviewed and electronically signed by: IVETH SINGH MD on May 22 2023 4:07PM [facility] XR Chest PA and LateralOrder ed By: [facility] Provider on 05-22-2023 [facility] .Auto Diffon 05-20-2023 Basophil, Absolute 0.0 10 3/mcL Normal 0.0-0.3 [facility] ([place]) Comment on above: Performed By: #### A DIFF, CBC, MG, ANEU, BMP, GFR #### [address] [address] Basophils/100 WBC (Bld) 0.2 % Normal 0.0-2.5 [facility] ([place]) Comment on above: Performed By: #### A DIFF, CBC, MG, ANEU, BMP, GFR #### [address] [address] Eosinophil, Absolute 0.1 10 3/mcL Normal 0.0-0.7 [facility] ([place]) Comment on above: Performed By: #### A DIFF, CBC, MG, ANEU, BMP, GFR #### [address] [address] Eosinophils/100 WBC (Bld) 0.7 % Normal 0.0-6.0 [facility] ([place]) Comment on above: Performed By: #### A DIFF, CBC, MG, ANEU, BMP, GFR #### [address] [address] Lymphocyte, Absolute 1.6 10 3/mcL Normal 0.9-4.3 [facility] ([place]) Comment on above: Performed By: #### A DIFF, CBC, MG, ANEU, BMP, GFR #### [address] [address] Lymphocytes/100 WBC (Bld) 11.8 % Low 20.0-40.0 [facility] ([place]) Comment on above: Performed By: #### A DIFF, CBC, MG, ANEU, BMP, GFR #### [address] [address] Monocyte, Absolute 0.9 10 3/mcL Normal 0.1-1.4 [facility] ([place] Comment on above: Performed By: #### A DIFF, CBC, MG, ANEU, BMP, GFR #### [address] [address] Monocytes/100 WBC (Bld) 6.8 % Normal 2.0-13.0 [facility] ([place] Comment on above: Performed By: #### A DIFF, CBC, MG, ANEU, BMP, GFR #### [address] [address] Neutrophils/100 WBC (Bld) 80.5 % High 50.0-75.0 [facility] ([place] Comment on above: Performed By: #### A DIFF, CBC, MG, ANEU, BMP, GFR #### [address] [address] .GFRon 05-20-2023 GFR >60 Normal [facility] ([place]) Comment on above: Result Comment: GFR Population mean for , Non- Americans Ages 20-29 = 116 mL/min/1.73 sq.m. Ages 30-39 = 107 mL/min/1.73 sq.m. Ages 40-49 = 99 mL/min/1.73 sq.m. Ages 50-59 = 93 mL/min/1.73 sq.m. Ages 60-69 = 85 mL/min/1.73 sq.m. Ages 70+ = 75 mL/min/1.73 sq.m. Chronic Kidney Disease: Less than 60 mL/min/1.73 square meters End Stage Renal Disease: Less than 15 mL/min/1.73 square meters Performed By: #### A DIFF, CBC, MG, ANEU, BMP, GFR #### [address] [address] GFR Non- >60 Normal [facility] ([place]) Comment on above: Result Comment: GFR Population mean for , Non- Americans Ages 20-29 = 116 mL/min/1.73 sq.m. Ages 30-39 = 107 mL/min/1.73 sq.m. Ages 40-49 = 99 mL/min/1.73 sq.m. Ages 50-59 = 93 mL/min/1.73 sq.m. Ages 60-69 = 85 mL/min/1.73 sq.m. Ages 70+ = 75 mL/min/1.73 sq.m. Chronic Kidney Disease: Less than 60 mL/min/1.73 square meters End Stage Renal Disease: Less than 15 mL/min/1.73 square meters Performed By: #### A DIFF, CBC, MG, ANEU, BMP, GFR #### [address] [address] .NEUABSon 05-20-2023 Neutrophil, Absolute 10.9 10 3/mcL High 2.3-8.1 A [facility] ([place]) Comment on above: Performed By: #### A DIFF, CBC, MG, ANEU, BMP, GFR #### [address] [address] BMPon 05-20-2023 BUN/Creatinine Ratio 33.7 ratio High 10.0-22.0 [facility] ([place] Comment on above: Performed By: #### A DIFF, CBC, MG, ANEU, BMP, GFR #### [address] [address] Calcium [Mass/Vol] 9.0 mg/dL Normal 8.7-10.4 [facility] ([place]) Comment on above: Performed By: #### A DIFF, CBC, MG, ANEU, BMP, GFR #### [address] [address] Chloride [Moles/Vol] 105 mmol/L Normal 98-110 [facility] ([place] Comment on above: Performed By: #### A DIFF, CBC, MG, ANEU, BMP, GFR #### [address] [address] CO2 [Moles/Vol] 26 mmol/L Normal 22-32 [facility] ([place]) Comment on above: Performed By: #### A DIFF, CBC, MG, ANEU, BMP, GFR #### [address] [address] Creatinine [Mass/Vol] 0.95 mg/dL Normal 0.60-1.40 [facility] ([place]) Comment on above: Performed By: #### A DIFF, CBC, MG, ANEU, BMP, GFR #### [address] [address] Electrolyte Balance 11.0 mEq/L Normal 4.0-15.0 [facility] ([place]) Comment on above: Performed By: #### A DIFF, CBC, MG, ANEU, BMP, GFR #### [address] [address] Glucose [Mass/Vol] 144 mg/dL High 82-115 [facility] ([place]) Comment on above: Performed By: #### A DIFF, CBC, MG, ANEU, BMP, GFR #### [address] [address] Potassium [Moles/Vol] 4.1 mmol/L Normal 3.5-5.0 [facility] ([place]) Comment on above: Result Comment: Spec imen slightly hemolyzed. Performed By: #### A DIFF, CBC, MG, ANEU, BMP, GFR #### [place] [address] Sodium [Moles/Vol] 142 mmol/L Normal 136-145 [facility] ([place]) Comment on above: Performed By: #### A DIFF, CBC, MG, ANEU, BMP, GFR #### [place] [id number] Urea nitrogen [Mass/Vol] 32.0 mg/dL High 8.0-22.0 [facility] ([place]) Comment on above: Performed By: #### A DIFF, CBC, MG, ANEU, BMP, GFR #### [place] [address] CBCon 05-20-2023 Erythrocyte distribution width (RBC) [Ratio] 15.1 % Normal 11.5-15.5 [facility] ([place] Comment on above: Performed By: #### A DIFF, CBC, MG, ANEU, BMP, GFR #### [place] [address] Hematocrit (Bld) [Volume fraction] 40.8 % Normal 40.0-52.0 [facility] ([place]) Comment on above: Performed By: #### A DIFF, CBC, MG, ANEU, BMP, GFR #### [place] [address] Hgb 13.4 G/dL Normal 13.0-17.5 [facility] ([place] Comment on above: Performed By: #### A DIFF, CBC, MG, ANEU, BMP, GFR #### [place] [address] MCH (RBC) [Entitic mass] 29.2 pg Normal 27.0-33.0 [facility] ([place] Comment on above: Performed By: #### A DIFF, CBC, MG, ANEU, BMP, GFR #### [place] [id number] MCHC 32.8 G/dL Normal 32.0-36.0 [facility] ([place] Comment on above: Performed By: #### A DIFF, CBC, MG, ANEU, BMP, GFR #### [address] [address] MCV (RBC) [Entitic vol] 88.9 fL Normal 81.0-100.0 [facility] ([place] Comment on above: Performed By: #### A DIFF, CBC, MG, ANEU, BMP, GFR #### [place] [id number] Platelet 195 10 3/mcL Normal 150-450 [facility] ([place] Comment on above: Performed By: #### A DIFF, CBC, MG, ANEU, BMP, GFR #### [place] [address] Platelet mean volume (Bld) [Entitic vol] 9.3 fL Normal 6.4-10.5 [facility] ([place] Comment on above: Performed By: #### A DIFF, CBC, MG, ANEU, BMP, GFR #### [place] [id number] RBC 4.59 10 6/mcL Normal 4.50-6.00 [facility] ([place] Comment on above: Performed By: #### A DIFF, CBC, MG, ANEU, BMP, GFR #### [place] [id number] WBC 13.5 10 3/mcL High 4.5-10.8 [facility] ([place]) Comment on above: Performed By: #### A DIFF, CBC, MG, ANEU, BMP, GFR #### [place] [address] LABORATORYOrdered By: Bebeto Cruz on 05-20-2023 Blood Glucose Testing Reason Routine (05/20/23 11:47 AM) [employer] Work Phone: Glucose [Mass/Vol] 217 mg/dL High 82 - 115 mg/dL [employer] Work Phone: Blood Glucose Testing Reason Routine (05/20/23 9:40 AM) [employer] Work Phone: Glucose [Mass/Vol] 149 mg/dL High 82 - 115 mg/dL [employer] Work Phone: Blood Glucose Testing Reason Routine (05/20/23 8:07 AM) [employer] Work Phone: Glucose [Mass/Vol] 149 mg/dL High 82 - 115 mg/dL [employer] Work Phone: LABORATORYOrdered By: SYSTEM SYSTEM on 05-20-2023 Basophils (Bld) [#/Vol] 0.0 103/mcL Normal 0.0 - 0.3 10^3/mcL Workflow SS Basophils/100 WBC (Bld) 0.2 % Normal 0.0 - 2.5 % Workflow SS Calcium [Mass/Vol] 9.0 mg/dL Normal 8.7 - 10. 4 mg/dL ADM SS Chloride [Moles/Vol] 105 mmol/L Normal 98 - 11 0 mEq/L ADM SS CO2 [Moles/Vol] 26 mmol/L Normal 22 - 32 mEq/L ADM SS Creatinine [Mass/Vol] 0.95 mg/dL Normal 0.60 - 1.40 mg/dL ADM SS Electrolyte Balance 11.0 mEq/L Normal 4.0 - 15 .0 mEq/L ADM SS Eosinophils (Bld) [#/Vol] 0.1 103/mcL Normal 0.0 - 0.7 10^3/mcL Workflow SS Eosinophils/100 WBC (Bld) 0.7 % Normal 0.0 - 6.0 % Workflow SS Erythrocyte distribution width (RBC) [Ratio] 15.1 % Normal 11.5 - 15.5 % Workflow SS GFR/1.73 sq M.predicted among blacks MDRD (S/P/Bld) [Vol rate/Area] ml/min/1.73sqm Invalid Interpretation Code Chemistry S Comment on above: Interpretive Data: GFR Population mean for , Non- Americans Ages 20-29 = 116 mL/min/1.73 sq.m. Ages 30-39 = 107 mL/min/1.73 sq.m. Ages 40-49 = 99 mL/min/1.73 sq.m. Ages 50-59 = 93 mL/min/1.73 sq.m. Ages 60-69 = 85 mL/min/1.73 sq.m. Ages 70+ = 75 mL/min/1.73 sq.m. Chronic Kidney Disease: Less than 60 mL/min/1.73 square meters End Stage Renal Disease: Less than 15 mL/min/1.73 square meters GFR/1.73 sq M.predicted among non-blacks MDRD (S/P/Bld) [Vol rate/Area] ml/min/1.73sqm Invalid Interpretation Code Chemistry S Comment on above: Interpretive Data: GFR Population mean for , Non- Americans Ages 20-29 = 116 mL/min/1.73 sq.m. Ages 30-39 = 107 mL/min/1.73 sq.m. Ages 40-49 = 99 mL/min/1.73 sq.m. Ages 50-59 = 93 mL/min/1.73 sq.m. Ages 60-69 = 85 mL/min/1.73 sq.m. Ages 70+ = 75 mL/min/1.73 sq.m. Chronic Kidney Disease: Less than 60 mL/min/1.73 square meters End Stage Renal Disease: Less than 15 mL/min/1.73 square meters Glucose [Mass/Vol] 144 mg/dL High 82 - 115 mg/dL AH ADM SS Hematocrit (Bld) [Volume fraction] 40.8 % Normal 40.0 - 52.0 % AH Workflow SS Hemoglobin (Bld) [Mass/Vol] 13.4 G/dL Normal 13.0 - 17.5 G/dL AH Workflow SS Lymphocytes (Bld) [#/Vol] 1.6 103/mcL Normal 0.9 - 4.3 10^3/mcL AH Workflow SS Lymphocytes/100 WBC (Bld) 11.8 % Low 20.0 - 40.0 % AH Workflow SS MCH (RBC) [Entitic mass] 29.2 pg Normal 27.0 - 33.0 pg AH Workflow SS MCHC 32.8 G/dL Normal 32.0 - 36.0 G/dL AH Workflow SS MCV (RBC) [Entitic vol] 88.9 fL Normal 81.0 - 100.0 fL AH Workflow SS Monocytes (Bld) [#/Vol] 0.9 103/mcL Normal 0.1 - 1.4 10^3/mcL AH Workflow SS Monocytes/100 WBC (Bld) 6.8 % Normal 2.0 - 13.0 % AH Workflow SS Neutrophils (Bld) [#/Vol] 10.9 103/mcL High 2.3 - 8.1 10^3/mcL AH Workflow SS Neutrophils/100 WBC (Bld) 80.5 % High 50.0 - 75.0 % AH Workflow SS Platelet mean volume (Bld) [Entitic vol] 9.3 fL Normal 6.4 - 10.5 fL AH Workflow SS Platelets (Bld) [#/Vol] 195 103/mcL Normal 150 - 450 10^3/mcL AH Workflow SS Potassium [Moles/Vol] 4.1 mmol/L Normal 3.5 - 5.0 mEq/L AH ADM SS Comment on above: Result Comment: Spec imen slightly hemolyzed. RBC (Bld) [#/Vol] 4.59 106/mcL Normal 4.50 - 6.00 10^6/mcL AH Workflow SS Sodium [Moles/Vol] 142 mmol/L Normal 136 - 145 mEq/L AH ADM SS Urea nitrogen [Mass/Vol] 32.0 mg/dL High 8.0 - 22.0 mg/dL AH ADM SS Urea nitrogen/Creatinine [Mass ratio] 33.7 ratio High 10.0 - 22.0 ratio AH ADM SS WBC (Bld) [#/Vol] 13.5 103/mcL High 4.5 - 10.8 10^3/mcL Workflow SS XR ABDOMEN APon 05-20-2023 XR ABDOMEN AP ORIGINAL EXAMINATION: ONE SUPINE XRAY VIEW(S) OF THE ABDOMEN 05/20/2023 9:39 am COMPARISON: May 20, 2023 HISTORY: ORDERING SYSTEM PROVIDED HISTORY: Reason for Exam: retest FINDINGS: Distended mid abdominal small bowel is present, similar to the prior exam. There is no colonic dilatation identified. Degenerative and postoperative changes are noted in the spine. Other findings are stable since the prior exam. IMPRESSION: No change in distended small bowel since previous exam. Interpreted by: Kiel Zaragoza MD Preliminary Report By: Kiel Zaragoza MD Electronically signed By Kiel Zaragoza MD Dictated Date: 05/20/2023 9:46:42 AM Prelim Date: 05/20/2023 9:47:55 AM Sign Date: 05/20/2023 9:47:55 AM Ordering Provider: JESUS MANUEL MELENDREZ [facility] ([place]) XR ABDOMEN AP ORIGINAL EXAMINATION: ONE SUPINE XRAY VIEW(S) OF THE ABDOMEN 05/20/2023 12:13 am COMPARISON: Abdomen x-ray on 05/11/2023. CT abdomen and pelvis on 05/09/2023. HISTORY: ORDERING SYSTEM PROVIDED HISTORY: Reason for Exam: emesis, abdominal pain FINDINGS: Detail is limited due to patient body habitus. There are several dilated air-filled loops of small intestine. There is mild gas scattered in the colon without dilatation of the colon. There is no sign of free intraperitoneal air on this supine exam. Previous instrumented fusion of L4-L5 is noted. IMPRESSION: Multiple dilated air-filled loops of small intestine suspicious for small bowel obstruction. Interpreted by: Sumit Carrasco MD Preliminary Report By: Sumit Carrasco MD Electronically signed By Sumit Carrasco MD Dictated Date: 05/20/2023 12:33:12 AM Prelim Date: 05/20/2023 12:35:35 AM Sign Date: 05/20/2023 12:35:35 AM Ordering Provider: HA Garsia [facility] ([place]) .Auto Diffon 05-15-2023 Basophil, Absolute 0.0 10 3/mcL Normal 0.0-0.3 [facility] ([place]) Comment on above: Performed By: #### A DIFF, CBC, MG, ANEU, BMP, GFR #### [address] [address] Basophils/100 WBC (Bld) 0.4 % Normal 0.0-2.5 [facility] ([place]) Comment on above: Performed By: #### A DIFF, CBC, MG, ANEU, BMP, GFR #### [address] [address] Eosinophil, Absolute 0.1 10 3/mcL Normal 0.0-0.7 [facility] ([place]) Comment on above: Performed By: #### A DIFF, CBC, MG, ANEU, BMP, GFR #### [address] [address] Eosinophils/100 WBC (Bld) 0.8 % Normal 0.0-6.0 [facility] ([place]) Comment on above: Performed By: #### A DIFF, CBC, MG, ANEU, BMP, GFR #### [address] [address] Lymphocyte, Absolute 1.9 10 3/mcL Normal 0.9-4.3 [facility] ([place]) Comment on above: Performed By: #### A DIFF, CBC, MG, ANEU, BMP, GFR #### [address] [address] Lymphocytes/100 WBC (Bld) 17.3 % Low 20.0-40.0 [facility] ([place]) Comment on above: Performed By: #### A DIFF, CBC, MG, ANEU, BMP, GFR #### [address] [address] Monocyte, Absolute 1.2 10 3/mcL Normal 0.1-1.4 [facility] ([place] Comment on above: Performed By: #### A DIFF, CBC, MG, ANEU, BMP, GFR #### [address] [address] Monocytes/100 WBC (Bld) 11.2 % Normal 2.0-13.0 [facility] ([place] Comment on above: Performed By: #### A DIFF, CBC, MG, ANEU, BMP, GFR #### [address] [address] Neutrophils/100 WBC (Bld) 70.3 % Normal 50.0-75.0 [facility] ([place] Comment on above: Performed By: #### A DIFF, CBC, MG, ANEU, BMP, GFR #### [address] [address] .GFRon 05-15-2023 GFR >60 Normal [facility] ([place] Comment on above: Result Comment: GFR Population mean for , Non- Americans Ages 20-29 = 116 mL/min/1.73 sq.m. Ages 30-39 = 107 mL/min/1.73 sq.m. Ages 40-49 = 99 mL/min/1.73 sq.m. Ages 50-59 = 93 mL/min/1.73 sq.m. Ages 60-69 = 85 mL/min/1.73 sq.m. Ages 70+ = 75 mL/min/1.73 sq.m. Chronic Kidney Disease: Less than 60 mL/min/1.73 square meters End Stage Renal Disease: Less than 15 mL/min/1.73 square meters Performed By: #### A DIFF, CBC, MG, ANEU, BMP, GFR #### [address] [address] GFR Non- >60 Normal [facility] ([place]) Comment on above: Result Comment: GFR Population mean for , Non- Americans Ages 20-29 = 116 mL/min/1.73 sq.m. Ages 30-39 = 107 mL/min/1.73 sq.m. Ages 40-49 = 99 mL/min/1.73 sq.m. Ages 50-59 = 93 mL/min/1.73 sq.m. Ages 60-69 = 85 mL/min/1.73 sq.m. Ages 70+ = 75 mL/min/1.73 sq.m. Chronic Kidney Disease: Less than 60 mL/min/1.73 square meters End Stage Renal Disease: Less than 15 mL/min/1.73 square meters Performed By: #### A DIFF, CBC, MG, ANEU, BMP, GFR #### [address] [address] .NEUABSon 05-15-2023 Neutrophil, Absolute 7.7 10 3/mcL Normal 2.3-8.1 [facility] ([place]) Comment on above: Performed By: #### A DIFF, CBC, MG, ANEU, BMP, GFR #### [address] [address] BMPon 05-15-2023 BUN/Creatinine Ratio 19.4 ratio Normal 10.0-22.0 [facility] ([place] Comment on above: Performed By: #### A DIFF, CBC, MG, ANEU, BMP, GFR #### [address] [address] Calcium [Mass/Vol] 9.3 mg/dL Normal 8.7-10.4 [facility] ([place]) Comment on above: Performed By: #### A DIFF, CBC, MG, ANEU, BMP, GFR #### [place] [address] Chloride [Moles/Vol] 105 mmol/L Normal 98-110 [facility] ([place] Comment on above: Performed By: #### A DIFF, CBC, MG, ANEU, BMP, GFR #### [address] [address] CO2 [Moles/Vol] 33 mmol/L High 22-32 [facility] ([place]) Comment on above: Performed By: #### A DIFF, CBC, MG, ANEU, BMP, GFR #### [address] [address] Creatinine [Mass/Vol] 1.08 mg/dL Normal 0.60-1.40 [facility] ([place]) Comment on above: Performed By: #### A DIFF, CBC, MG, ANEU, BMP, GFR #### [address] [address] Electrolyte Balance 5.0 mEq/L Normal 4.0-15.0 [facility] ([place]) Comment on above: Performed By: #### A DIFF, CBC, MG, ANEU, BMP, GFR #### [address] [address] Glucose [Mass/Vol] 121 mg/dL High 82-115 [facility] ([place]) Comment on above: Performed By: #### A DIFF, CBC, MG, ANEU, BMP, GFR #### [address] [address] Potassium [Moles/Vol] 4.3 mmol/L Normal 3.5-5.0 [facility] ([place]) Comment on above: Performed By: #### A DIFF, CBC, MG, ANEU, BMP, GFR #### [address] [address] Sodium [Moles/Vol] 143 mmol/L Normal 136-145 [facility] ([place]) Comment on above: Performed By: #### A DIFF, CBC, MG, ANEU, BMP, GFR #### [address] [address] Urea nitrogen [Mass/Vol] 21.0 mg/dL Normal 8.0-22.0 [facility] ([place]) Comment on above: Performed By: #### A DIFF, CBC, MG, ANEU, BMP, GFR #### [place] [id number] CBCon 05-15-2023 Erythrocyte distribution width (RBC) [Ratio] 15.4 % Normal 11.5-15.5 [facility] ([place]) Comment on above: Performed By: #### A DIFF, CBC, MG, ANEU, BMP, GFR #### [place] [address] Hematocrit (Bld) [Volume fraction] 40.7 % Normal 40.0-52.0 [facility] ([place]) Comment on above: Performed By: #### A DIFF, CBC, MG, ANEU, BMP, GFR #### [place] [address] Hgb 13.6 G/dL Normal 13.0-17.5 [facility] ([place]) Comment on above: Performed By: #### A DIFF, CBC, MG, ANEU, BMP, GFR #### [place] [address] MCH (RBC) [Entitic mass] 29.9 pg Normal 27.0-33.0 [facility] ([place]) Comment on above: Performed By: #### A DIFF, CBC, MG, ANEU, BMP, GFR #### [place] [id number] MCHC 33.4 G/dL Normal 32.0-36.0 [facility] ([place]) Comment on above: Performed By: #### A DIFF, CBC, MG, ANEU, BMP, GFR #### [place] [address] MCV (RBC) [Entitic vol] 89.6 fL Normal 81.0-100.0 [facility] ([place]) Comment on above: Performed By: #### A DIFF, CBC, MG, ANEU, BMP, GFR #### [place] [id number] Platelet 222 10 3/mcL Normal 150-450 [facility] ([place]) Comment on above: Performed By: #### A DIFF, CBC, MG, ANEU, BMP, GFR #### [place] [address] Platelet mean volume (Bld) [Entitic vol] 9.5 fL Normal 6.4-10.5 [facility] ([place]) Comment on above: Performed By: #### A DIFF, CBC, MG, ANEU, BMP, GFR #### [place] [id number] RBC 4.54 10 6/mcL Normal 4.50-6.00 [facility] ([place]) Comment on above: Performed By: #### A DIFF, CBC, MG, ANEU, BMP, GFR #### [place] [address] WBC 10.9 10 3/mcL High 4.5-10.8 [facility] ([place]) Comment on above: Performed By: #### A DIFF, CBC, MG, ANEU, BMP, GFR #### [place] [address] LABORATORYOrdered By: SYSTEM SYSTEM on 05-15-2023 Basophils (Bld) [#/Vol] 0.0 103/mcL Normal 0.0 - 0.3 10^3/mcL Workflow SS Basophils/100 WBC (Bld) 0.4 % Normal 0.0 - 2.5 % Workflow SS Calcium [Mass/Vol] 9.3 mg/dL Normal 8.7 - 10. 4 mg/dL ADM SS Chloride [Moles/Vol] 105 mmol/L Normal 98 - 11 0 mEq/L ADM SS CO2 [Moles/Vol] 33 mmol/L High 22 - 32 mEq/L ADM SS Creatinine [Mass/Vol] 1.08 mg/dL Normal 0.60 - 1.40 mg/dL ADM SS Electrolyte Balance 5.0 mEq/L Normal 4.0 - 15 .0 mEq/L AH ADM SS Eosinophils (Bld) [#/Vol] 0.1 103/mcL Normal 0.0 - 0.7 10^3/mcL AH Workflow SS Eosinophils/100 WBC (Bld) 0.8 % Normal 0.0 - 6.0 % AH Workflow SS Erythrocyte distribution width (RBC) [Ratio] 15.4 % Normal 11.5 - 15.5 % Workflow SS GFR/1.73 sq M.predicted among blacks MDRD (S/P/Bld) [Vol rate/Area] ml/min/1.73sqm Invalid Interpretation Code [place] Chemistry S Comment on above: Interpretive Data: GFR Population mean for , Non- Americans Ages 20-29 = 116 mL/min/1.73 sq.m. Ages 30-39 = 107 mL/min/1.73 sq.m. Ages 40-49 = 99 mL/min/1.73 sq.m. Ages 50-59 = 93 mL/min/1.73 sq.m. Ages 60-69 = 85 mL/min/1.73 sq.m. Ages 70+ = 75 mL/min/1.73 sq.m. Chronic Kidney Disease: Less than 60 mL/min/1.73 square meters End Stage Renal Disease: Less than 15 mL/min/1.73 square meters GFR/1.73 sq M.predicted among non-blacks MDRD (S/P/Bld) [Vol rate/Area] ml/min/1.73sqm Invalid Interpretation Code [place] Chemistry S Comment on above: Interpretive Data: GFR Population mean for , Non- Americans Ages 20-29 = 116 mL/min/1.73 sq.m. Ages 30-39 = 107 mL/min/1.73 sq.m. Ages 40-49 = 99 mL/min/1.73 sq.m. Ages 50-59 = 93 mL/min/1.73 sq.m. Ages 60-69 = 85 mL/min/1.73 sq.m. Ages 70+ = 75 mL/min/1.73 sq.m. Chronic Kidney Disease: Less than 60 mL/min/1.73 square meters End Stage Renal Disease: Less than 15 mL/min/1.73 square meters Glucose [Mass/Vol] 121 mg/dL High 82 - 115 mg/dL ADM SS Hematocrit (Bld) [Volume fraction] 40.7 % Normal 40.0 - 52.0 % Workflow SS Hemoglobin (Bld) [Mass/Vol] 13.6 G/dL Normal 13.0 - 17.5 G/dL Workflow SS Lymphocytes (Bld) [#/Vol] 1.9 103/mcL Normal 0.9 - 4.3 10^3/mcL AH Workflow SS Lymphocytes/100 WBC (Bld) 17.3 % Low 20.0 - 40.0 % AH Workflow SS MCH (RBC) [Entitic mass] 29.9 pg Normal 27.0 - 33.0 pg AH Workflow SS MCHC 33.4 G/dL Normal 32.0 - 36.0 G/dL AH Workflow SS MCV (RBC) [Entitic vol] 89.6 fL Normal 81.0 - 100.0 fL AH Workflow SS Monocytes (Bld) [#/Vol] 1.2 103/mcL Normal 0.1 - 1.4 10^3/mcL AH Workflow SS Monocytes/100 WBC (Bld) 11.2 % Normal 2.0 - 13.0 % AH Workflow SS Neutrophils (Bld) [#/Vol] 7.7 103/mcL Normal 2.3 - 8.1 10^3/mcL AH Workflow SS Neutrophils/100 WBC (Bld) 70.3 % Normal 50.0 - 75.0 % AH Workflow SS Platelet mean volume (Bld) [Entitic vol] 9.5 fL Normal 6.4 - 10.5 fL AH Workflow SS Platelets (Bld) [#/Vol] 222 103/mcL Normal 150 - 450 10^3/mcL AH Workflow SS Potassium [Moles/Vol] 4.3 mmol/L Normal 3.5 - 5.0 mEq/L AH ADM SS RBC (Bld) [#/Vol] 4.54 106/mcL Normal 4.50 - 6.00 10^6/mcL AH Workflow SS Sodium [Moles/Vol] 143 mmol/L Normal 136 - 145 mEq/L ADM SS Urea nitrogen [Mass/Vol] 21.0 mg/dL Normal 8.0 - 22.0 mg/dL ADM SS Urea nitrogen/Creatinine [Mass ratio] 19.4 ratio Normal 10.0 - 22.0 ratio AH ADM SS WBC (Bld) [#/Vol] 10.9 103/mcL High 4.5 - 10.8 10^3/mcL Workflow SS LABORATORYOrdered By: Isabela George on 05-13-2023 Time of Stated Blood Glucose [id number] [facility] Work Phone: .Auto Diffon 05-12-2023 Basophil, Absolute 0.0 10 3/mcL Normal 0.0-0.3 [facility] ([place]) Comment on above: Performed By: #### Scott G, GFR, BMP #### [address] [address] Basophils/100 WBC (Bld) 0.7 % Normal 0.0-2.5 [facility] ([place]) Comment on above: Performed By: #### Scott Lucero, GFR, BMP #### [address] [address] Eosinophil, Absolute 0.1 10 3/mcL Normal 0.0-0.7 [facility] ([place]) Comment on above: Performed By: #### Scott Lucero, GFR, BMP #### [address] [address] Eosinophils/100 WBC (Bld) 1.2 % Normal 0.0-6.0 [facility] ([place]) Comment on above: Performed By: #### Scott Lucero, GFR, BMP #### [address] [address] Lymphocyte, Absolute 1.4 10 3/mcL Normal 0.9-4.3 [facility] ([place]) Comment on above: Performed By: #### Scott Lucero, GFR, BMP #### [address] [address] Lymphocytes/100 WBC (Bld) 23.4 % Normal 20.0-40.0 [facility] ([place]) Comment on above: Performed By: #### Scott G, GFR, BMP #### [address] [address] Monocyte, Absolute 0.8 10 3/mcL Normal 0.1-1.4 [facility] ([place]) Comment on above: Performed By: #### Scott G, GFR, BMP #### [address] [address] Monocytes/100 WBC (Bld) 13.0 % Normal 2.0-13.0 [facility] ([place]) Comment on above: Performed By: #### Scott G, GFR, BMP #### [address] [address] Neutrophils/100 WBC (Bld) 61.7 % Normal 50.0-75.0 [facility] ([place]) Comment on above: Performed By: #### Scott Lucero, GFR, BMP #### [address] [address] .GFRon 05-12-2023 GFR >60 Normal [facility] ([place]) Comment on above: Result Comment: GFR Population mean for , Non- Americans Ages 20-29 = 116 mL/min/1.73 sq.m. Ages 30-39 = 107 mL/min/1.73 sq.m. Ages 40-49 = 99 mL/min/1.73 sq.m. Ages 50-59 = 93 mL/min/1.73 sq.m. Ages 60-69 = 85 mL/min/1.73 sq.m. Ages 70+ = 75 mL/min/1.73 sq.m. Chronic Kidney Disease: Less than 60 mL/min/1.73 square meters End Stage Renal Disease: Less than 15 mL/min/1.73 square meters Performed By: #### Scott Lucero, GFR, BMP #### [address] [address] GFR Non- >60 Normal [facility] ([place]) Comment on above: Result Comment: GFR Population mean for , Non- Americans Ages 20-29 = 116 mL/min/1.73 sq.m. Ages 30-39 = 107 mL/min/1.73 sq.m. Ages 40-49 = 99 mL/min/1.73 sq.m. Ages 50-59 = 93 mL/min/1.73 sq.m. Ages 60-69 = 85 mL/min/1.73 sq.m. Ages 70+ = 75 mL/min/1.73 sq.m. Chronic Kidney Disease: Less than 60 mL/min/1.73 square meters End Stage Renal Disease: Less than 15 mL/min/1.73 square meters Performed By: #### Scott G, GFR, BMP #### [address] [address] .NEUABSon 05-12-2023 Neutrophil, Absolute 3.6 10 3/mcL Normal 2.3-8.1 [facility] ([place]) Comment on above: Performed By: #### Scott G, GFR, BMP #### [address] [address] [facility] BUN/Creatinine Ratio 25.0 ratio High 10.0-22.0 [facility] ([place]) Comment on above: Performed By: #### Scott G, GFR, BMP #### [address] [address] Calcium [Mass/Vol] 8.4 mg/dL Low 8.7-10.4 [facility] ([place]) Comment on above: Performed By: #### Scott G, GFR, BMP #### [address] [address] Chloride [Moles/Vol] 109 mmol/L Normal 98-110 [facility] ([place]) Comment on above: Performed By: #### Scott G, GFR, BMP #### [address] [address] CO2 [Moles/Vol] 29 mmol/L Normal 22-32 [facility] ([place]) Comment on above: Performed By: #### Scott G, GFR, BMP #### [address] [address] Creatinine [Mass/Vol] 0.96 mg/dL Normal 0.60-1.40 [facility] ([place]) Comment on above: Performed By: #### Scott G, GFR, BMP #### [address] [address] Electrolyte Balance 3.0 mEq/L Low 4.0-15.0 [facility] ([place]) Comment on above: Performed By: #### Scott G, GFR, BMP #### [address] [address] Glucose [Mass/Vol] 71 mg/dL Low 82-115 [facility] ([place]) Comment on above: Performed By: #### Scott G, GFR, BMP #### [address] [address] Potassium [Moles/Vol] 4.1 mmol/L Normal 3.5-5.0 [facility] ([place]) Comment on above: Performed By: #### M G, GFR, BMP #### [place] [id number] Sodium [Moles/Vol] 141 mmol/L Normal 136-145 [facility] ([place]) Comment on above: Performed By: #### M Nic, GFR, BMP #### [place] [address] Urea nitrogen [Mass/Vol] 24.0 mg/dL High 8.0-22.0 [facility] ([place]) Comment on above: Performed By: #### M G, GFR, BMP #### [place] [address] CBCon 05-12-2023 Erythrocyte distribution width (RBC) [Ratio] 15.3 % Normal 11.5-15.5 [facility] ([place]) Comment on above: Performed By: #### Scott Lucero, GFR, BMP #### [place] [address] Hematocrit (Bld) [Volume fraction] 35.6 % Low 40.0-52.0 [facility] ([place]) Comment on above: Performed By: #### M G, GFR, BMP #### [place] [address] Hgb 12.2 G/dL Low 13.0-17.5 [facility] ([place]) Comment on above: Performed By: #### Scott G, GFR, BMP #### [place] [address] MCH (RBC) [Entitic mass] 30.6 pg Normal 27.0-33.0 [facility] ([place]) Comment on above: Performed By: #### M G, GFR, BMP #### [place] [address] MCHC 34.2 G/dL Normal 32.0-36.0 [facility] ([place]) Comment on above: Performed By: #### M G, GFR, BMP #### [place] [address] MCV (RBC) [Entitic vol] 89.4 fL Normal 81.0-100.0 [facility] ([place]) Comment on above: Performed By: #### M G, GFR, BMP #### [address] [address] Platelet 209 10 3/mcL Normal 150-450 [facility] ([place]) Comment on above: Performed By: #### M G, GFR, BMP #### [place] [address] Platelet mean volume (Bld) [Entitic vol] 9.4 fL Normal 6.4-10.5 [facility] ([place]) Comment on above: Performed By: #### M Nic, GFR, BMP #### [address] [address] RBC 3.99 10 6/mcL Low 4.50-6.00 [facility] ([place]) Comment on above: Performed By: #### Scott Lucero, GFR, BMP #### [address] [address] WBC 5.8 10 3/mcL Normal 4.5-10.8 [facility] ([place]) Comment on above: Performed By: #### M G, GFR, BMP #### [place] [address] LABORATORYOrdered By: SYSTEM SYSTEM on 05-12-2023 Basophils (Bld) [#/Vol] 0.0 103/mcL Normal 0.0 - 0.3 10^3/mcL AH Workflow SS Basophils/100 WBC (Bld) 0.7 % Normal 0.0 - 2.5 % AH Workflow SS Calcium [Mass/Vol] 8.4 mg/dL Low 8.7 - 10. 4 mg/dL AH ADM SS Chloride [Moles/Vol] 109 mmol/L Normal 98 - 11 0 mEq/L AH ADM SS CO2 [Moles/Vol] 29 mmol/L Normal 22 - 32 mEq/L ADM SS Creatinine [Mass/Vol] 0.96 mg/dL Normal 0.60 - 1.40 mg/dL ADM SS Electrolyte Balance 3.0 mEq/L Low 4.0 - 15 .0 mEq/L ADM SS Eosinophils (Bld) [#/Vol] 0.1 103/mcL Normal 0.0 - 0.7 10^3/mcL Workflow SS Eosinophils/100 WBC (Bld) 1.2 % Normal 0.0 - 6.0 % Workflow SS Erythrocyte distribution width (RBC) [Ratio] 15.3 % Normal 11.5 - 15.5 % Workflow SS GFR/1.73 sq M.predicted among blacks MDRD (S/P/Bld) [Vol rate/Area] ml/min/1.73sqm Invalid Interpretation Code Chemistry S Comment on above: Interpretive Data: GFR Population mean for , Non- Americans Ages 20-29 = 116 mL/min/1.73 sq.m. Ages 30-39 = 107 mL/min/1.73 sq.m. Ages 40-49 = 99 mL/min/1.73 sq.m. Ages 50-59 = 93 mL/min/1.73 sq.m. Ages 60-69 = 85 mL/min/1.73 sq.m. Ages 70+ = 75 mL/min/1.73 sq.m. Chronic Kidney Disease: Less than 60 mL/min/1.73 square meters End Stage Renal Disease: Less than 15 mL/min/1.73 square meters GFR/1.73 sq M.predicted among non-blacks MDRD (S/P/Bld) [Vol rate/Area] ml/min/1.73sqm Invalid Interpretation Code [place] Chemistry S Comment on above: Interpretive Data: GFR Population mean for , Non- Americans Ages 20-29 = 116 mL/min/1.73 sq.m. Ages 30-39 = 107 mL/min/1.73 sq.m. Ages 40-49 = 99 mL/min/1.73 sq.m. Ages 50-59 = 93 mL/min/1.73 sq.m. Ages 60-69 = 85 mL/min/1.73 sq.m. Ages 70+ = 75 mL/min/1.73 sq.m. Chronic Kidney Disease: Less than 60 mL/min/1.73 square meters End Stage Renal Disease: Less than 15 mL/min/1.73 square meters Glucose [Mass/Vol] 71 mg/dL Low 82 - 115 mg/dL ADM SS Hematocrit (Bld) [Volume fraction] 35.6 % Low 40.0 - 52.0 % AH Workflow SS Hemoglobin (Bld) [Mass/Vol] 12.2 G/dL Low 13.0 - 17.5 G/dL AH Workflow SS Lymphocytes (Bld) [#/Vol] 1.4 103/mcL Normal 0.9 - 4.3 10^3/mcL AH Workflow SS Lymphocytes/100 WBC (Bld) 23.4 % Normal 20.0 - 40.0 % AH Workflow SS MCH (RBC) [Entitic mass] 30.6 pg Normal 27.0 - 33.0 pg AH Workflow SS MCHC 34.2 G/dL Normal 32.0 - 36.0 G/dL AH Workflow SS MCV (RBC) [Entitic vol] 89.4 fL Normal 81.0 - 100.0 fL AH Workflow SS Monocytes (Bld) [#/Vol] 0.8 103/mcL Normal 0.1 - 1.4 10^3/mcL AH Workflow SS Monocytes/100 WBC (Bld) 13.0 % Normal 2.0 - 13.0 % AH Workflow SS Neutrophils (Bld) [#/Vol] 3.6 103/mcL Normal 2.3 - 8.1 10^3/mcL AH Workflow SS Neutrophils/100 WBC (Bld) 61.7 % Normal 50.0 - 75.0 % AH Workflow SS Platelet mean volume (Bld) [Entitic vol] 9.4 fL Normal 6.4 - 10.5 fL AH Workflow SS Platelets (Bld) [#/Vol] 209 103/mcL Normal 150 - 450 10^3/mcL AH Workflow SS Potassium [Moles/Vol] 4.1 mmol/L Normal 3.5 - 5.0 mEq/L AH ADM SS RBC (Bld) [#/Vol] 3.99 106/mcL Low 4.50 - 6.00 10^6/mcL AH Workflow SS Sodium [Moles/Vol] 141 mmol/L Normal 136 - 145 mEq/L AH ADM SS Urea nitrogen [Mass/Vol] 24.0 mg/dL High 8.0 - 22.0 mg/dL AH ADM SS Urea nitrogen/Creatinine [Mass ratio] 25.0 ratio High 10.0 - 22.0 ratio AH ADM SS WBC (Bld) [#/Vol] 5.8 103/mcL Normal 4.5 - 10.8 10^3/mcL AH Workflow SS XR ABDOMEN APon 05-11-2023 XR ABDOMEN AP ORIGINAL EXAMINATION: ONE SUPINE XRAY VIEW(S) OF THE ABDOMEN 05/11/2023 9:21 am COMPARISON: 05/09/2023 x-ray and CT abdomen pelvis HISTORY: ORDERING SYSTEM PROVIDED HISTORY: Reason for Exam: constipation FINDINGS: Examination is compromised by patient body habitus and portable technique. Nonobstructive bowel gas pattern with only mild stool burden. Degenerative changes in the osseous structures. Partial visualization of sternal hardware. Prior lumbar spine surgery. IMPRESSION: Improved gas pattern since the prior. Interpreted by: Marycruz Rodriguez MD Preliminary Report By: Marycruz Rodriguez MD Electronically signed By Marycruz Rodriguez MD Dictated Date: 05/11/2023 9:29:27 AM Prelim Date: 05/11/2023 9:31:37 AM Sign Date: 05/11/2023 9:31:37 AM Ordering Provider: ALLISON Garsia [facility] ([place]) CT ABDOMEN/PELVIS W/O CONTRA STon 05-09-2023 CT ABDOMEN/PELVIS W/O CONTRAST ORIGINAL EXAMINATION: CT OF THE ABDOMEN AND PELVIS WITHOUT CONTRAST 05/09/2023 12:59 pm TECHNIQUE: CT of the abdomen and pelvis was performed without the administration of intravenous contrast. Multiplanar reformatted images are provided for review. Automated exposure control, iterative reconstruction, and/or weight based adjustment of the mA/kV was utilized to reduce the radiation dose to as low as reasonably achievable. COMPARISON: April 23, 2023 HISTORY: ORDERING SYSTEM PROVIDED HISTORY: Reason for Exam: f/u from [facility]UB re: SBO FINDINGS: Degenerative and postoperative changes are noted in the spine. There is metallic artifact from spinal fixation hardware. Trace left pleural fluid is evident with minimal adjacent atelectasis. A small amount of pericardial fluid is also evident. Liver, spleen, adrenal glands and pancreas are unremarkable. A left renal cyst is present. Punctate 2 mm stone suspected left lower pole kidney. No adenopathy, free air or free fluid seen. The urinary bladder is grossly normal. No colonic or appendiceal abnormality seen. The distal ileum is normal in caliber. There is however mild proximal ileal and jejunal dilatation, improved since the previous CT scan. No pneumatosis or free air is visible. No evidence for abscess. No additional contributory finding. IMPRESSION: Improvement of small bowel distension since the previous CT scan. This may represent resolving or low-grade mechanical obstruction. No new/acute finding identified. Suspect punctate nonobstructive left lower pole nephrolithiasis. Interpreted by: Kiel Zaragoza MD Preliminary Report By: Kiel Zaragoza MD Electronically signed By Kiel Zaragoza MD Dictated Date: 05/09/2023 1:07:41 PM Prelim Date: 05/09/2023 1:10:22 PM Sign Date: 05/09/2023 1:10:22 PM Ordering Provider: MALIA BECERRIL [facility] ([place]) XR ABDOMEN APon 05-09-2023 XR ABDOMEN AP ORIGINAL EXAMINATION: X-ray abdomen. TECHNIQUE: KUB, one view COMPARISON: Kv 04/24/2023, CT abdomen pelvis 04/23/2023 HISTORY: ORDERING SYSTEM PROVIDED HISTORY: Reason for Exam: pain FINDINGS: Examination is limited by body habitus. Gaseous distension of proximal small bowel loops measuring up to 5 cm in transverse dimension noted. Air is present within the descending colon rectum. The flank regions are obscured by bowel gas. No acute osseous pathology. Widespread spondylotic changes throughout the thoracic and lumbar spine. Posterior instrumentation at L5-S1 with bilateral transpedicular screws and vertical stabilization rods. IMPRESSION: Gaseous distension of proximal small bowel loops measuring up to 5 cm favored to reflect a small bowel obstruction. Further evaluation with CT abdomen pelvis is advised. Interpreted by: Saturnino Chawla MD Preliminary Report By: Saturnino Chawla MD Electronically signed By Saturnino Chawla MD Dictated Date: 05/09/2023 9:49:33 AM Prelim Date: 05/09/2023 9:53:10 AM Sign Date: 05/09/2023 9:53:10 AM Ordering Provider: MALIA Garsia [facility] ([place]) .GFRon 05-04-2023 GFR Non- >60 Normal [facility] ([place]) Comment on above: Result Comment: GFR Population mean for , Non- Americans Ages 20-29 = 116 mL/min/1.73 sq.m. Ages 30-39 = 107 mL/min/1.73 sq.m. Ages 40-49 = 99 mL/min/1.73 sq.m. Ages 50-59 = 93 mL/min/1.73 sq.m. Ages 60-69 = 85 mL/min/1.73 sq.m. Ages 70+ = 75 mL/min/1.73 sq.m. Chronic Kidney Disease: Less than 60 mL/min/1.73 square meters End Stage Renal Disease: Less than 15 mL/min/1.73 square meters Performed By: #### A DIFF, CBC, MG, ANEU, BMP, GFR #### [address] [address] GFR >60 Normal [facility] ([place]) Comment on above: Result Comment: GFR Population mean for , Non- Americans Ages 20-29 = 116 mL/min/1.73 sq.m. Ages 30-39 = 107 mL/min/1.73 sq.m. Ages 40-49 = 99 mL/min/1.73 sq.m. Ages 50-59 = 93 mL/min/1.73 sq.m. Ages 60-69 = 85 mL/min/1.73 sq.m. Ages 70+ = 75 mL/min/1.73 sq.m. Chronic Kidney Disease: Less than 60 mL/min/1.73 square meters End Stage Renal Disease: Less than 15 mL/min/1.73 square meters Performed By: #### A DIFF, CBC, MG, ANEU, BMP, GFR #### [address] [address] BMPon 05-04-2023 BUN/Creatinine Ratio 23.7 ratio High 10.0-22.0 [facility] ([place]) Comment on above: Performed By: #### A DIFF, CBC, MG, ANEU, BMP, GFR #### [address] [address] Calcium [Mass/Vol] 9.0 mg/dL Normal 8.7-10.4 [facility] ([place]) Comment on above: Performed By: #### A DIFF, CBC, MG, ANEU, BMP, GFR #### [address] [address] Chloride [Moles/Vol] 107 mmol/L Normal 98-110 [facility] ([place]) Comment on above: Performed By: #### A DIFF, CBC, MG, ANEU, BMP, GFR #### [address] [address] CO2 [Moles/Vol] 26 mmol/L Normal 22-32 [facility] ([place]) Comment on above: Performed By: #### A DIFF, CBC, MG, ANEU, BMP, GFR #### [address] [address] Creatinine [Mass/Vol] 0.76 mg/dL Normal 0.60-1.40 [facility] ([place]) Comment on above: Performed By: #### A DIFF, CBC, MG, ANEU, BMP, GFR #### [place] [address] Electrolyte Balance 8.0 mEq/L Normal 4.0-15.0 [facility] ([place]) Comment on above: Performed By: #### A DIFF, CBC, MG, ANEU, BMP, GFR #### [place] [address] Glucose [Mass/Vol] 132 mg/dL High 82-115 [facility] ([place]) Comment on above: Performed By: #### A DIFF, CBC, MG, ANEU, BMP, GFR #### [place] [address] Potassium [Moles/Vol] 4.4 mmol/L Normal 3.5-5.0 [facility] ([place]) Comment on above: Performed By: #### A DIFF, CBC, MG, ANEU, BMP, GFR #### [address] [address] Sodium [Moles/Vol] 141 mmol/L Normal 136-145 [facility] ([place]) Comment on above: Performed By: #### A DIFF, CBC, MG, ANEU, BMP, GFR #### [address] [address] Urea nitrogen [Mass/Vol] 18.0 mg/dL Normal 8.0-22.0 [facility] ([place]) Comment on above: Performed By: #### A DIFF, CBC, MG, ANEU, BMP, GFR #### [address] [address] LABORATORYOrdered By: Rosette Salmon on 05-04-2023 Natriuretic peptide.B prohormone N-Terminal [Mass/Vol] 442 pg/mL Normal 0 - 900 pg/mL Auto Chem SS Comment on above: Interpretive Data: N T-proBNP results of less than 300 pg/mL effectively rules out acute congestive heart failure with 99% negative predictive value. PBNPon 05-04-2023 Natriuretic peptide B (Bld) [Mass/Vol] 442 pg/mL Normal 0-900 [facility] ([place]) Comment on above: Result Comment: NT-p roBNP results of less than 300 pg/mL effectively rules out acute congestive heart failure with 99% negative predictive value. Performed By: #### A DIFF, CBC, MG, ANEU, BMP, GFR #### [address] [address] LABORATORYOrdered By: Magda Guy on 05-01-2023 Glucose [Mass/Vol] 192 mg/dL [facility] [place] Work Phone: .Auto Diffon 04-28-2023 Basophil, Absolute 0.1 10 3/mcL Normal 0.0-0.3 [facility] ([place]) Comment on above: Performed By: #### M G, GFR, BMP #### [address] [address] Basophils/100 WBC (Bld) 0.6 % Normal 0.0-2.5 [facility] ([place]) Comment on above: Performed By: #### M G, GFR, BMP #### [address] [address] Eosinophil, Absolute 0.1 10 3/mcL Normal 0.0-0.7 [facility] ([place]) Comment on above: Performed By: #### M G, GFR, BMP #### [address] [address] Eosinophils/100 WBC (Bld) 0.6 % Normal 0.0-6.0 [facility] ([place]) Comment on above: Performed By: #### M G, GFR, BMP #### [address] [address] Lymphocyte, Absolute 1.2 10 3/mcL Normal 0.9-4.3 [facility] ([place]) Comment on above: Performed By: #### M G, GFR, BMP #### [address] [address] Lymphocytes/100 WBC (Bld) 12.2 % Low 20.0-40.0 [facility] ([place]) Comment on above: Performed By: #### M G, GFR, BMP #### [address] [address] Monocyte, Absolute 1.0 10 3/mcL Normal 0.1-1.4 [facility] ([place]) Comment on above: Performed By: #### M G, GFR, BMP #### [address] [address] Monocytes/100 WBC (Bld) 10.0 % Normal 2.0-13.0 [facility] ([place]) Comment on above: Performed By: #### M G, GFR, BMP #### [address] [address] Neutrophils/100 WBC (Bld) 76.6 % High 50.0-75.0 [facility] ([place]) Comment on above: Performed By: #### M G, GFR, BMP #### [address] [address] .GFRon 04-28-2023 GFR >60 Normal [facility] ([place]) Comment on above: Result Comment: GFR Population mean for , Non- Americans Ages 20-29 = 116 mL/min/1.73 sq.m. Ages 30-39 = 107 mL/min/1.73 sq.m. Ages 40-49 = 99 mL/min/1.73 sq.m. Ages 50-59 = 93 mL/min/1.73 sq.m. Ages 60-69 = 85 mL/min/1.73 sq.m. Ages 70+ = 75 mL/min/1.73 sq.m. Chronic Kidney Disease: Less than 60 mL/min/1.73 square meters End Stage Renal Disease: Less than 15 mL/min/1.73 square meters Performed By: #### M G, GFR, BMP #### [address] [address] GFR Non- >60 Normal [facility] ([place]) Comment on above: Result Comment: GFR Population mean for , Non- Americans Ages 20-29 = 116 mL/min/1.73 sq.m. Ages 30-39 = 107 mL/min/1.73 sq.m. Ages 40-49 = 99 mL/min/1.73 sq.m. Ages 50-59 = 93 mL/min/1.73 sq.m. Ages 60-69 = 85 mL/min/1.73 sq.m. Ages 70+ = 75 mL/min/1.73 sq.m. Chronic Kidney Disease: Less than 60 mL/min/1.73 square meters End Stage Renal Disease: Less than 15 mL/min/1.73 square meters Performed By: #### Scott Lucero, GFR, BMP #### [address] [address] .NEUABSon 04-28-2023 Neutrophil, Absolute 7.5 10 3/mcL Normal 2.3-8.1 [facility] ([place]) Comment on above: Performed By: #### Scott Lucero, GFR, BMP #### [address] [address] BMPon 04-28-2023 BUN/Creatinine Ratio 30.0 ratio High 10.0-22.0 [facility] ([place]) Comment on above: Performed By: #### Scott Lucero, GFR, BMP #### [address] [address] Calcium [Mass/Vol] 8.7 mg/dL Normal 8.7-10.4 [facility] ([place]) Comment on above: Performed By: #### Scott Lucero, GFR, BMP #### [address] [address] Chloride [Moles/Vol] 101 mmol/L Normal 98-110 [facility] ([place]) Comment on above: Performed By: #### Scott Lucero, GFR, BMP #### [address] [address] CO2 [Moles/Vol] 32 mmol/L Normal 22-32 [facility] ([place]) Comment on above: Performed By: #### Scott Lucero, GFR, BMP #### [address] [address] Creatinine [Mass/Vol] 0.70 mg/dL Normal 0.60-1.40 [facility] ([place]) Comment on above: Performed By: #### M Nic, GFR, BMP #### [address] [address] Electrolyte Balance 6.0 mEq/L Normal 4.0-15.0 [facility] ([place]) Comment on above: Performed By: #### M Nic, GFR, BMP #### [address] [address] Glucose [Mass/Vol] 248 mg/dL High 82-115 [facility] ([place]) Comment on above: Performed By: #### M Nic, GFR, BMP #### [address] [address] Potassium [Moles/Vol] 4.1 mmol/L Normal 3.5-5.0 [facility] ([place]) Comment on above: Result Comment: Spec imen slightly hemolyzed. Performed By: #### M Nic, GFR, BMP #### [address] [address] Sodium [Moles/Vol] 139 mmol/L Normal 136-145 [facility] ([place]) Comment on above: Performed By: #### M Nic, GFR, BMP #### [address] [address] Urea nitrogen [Mass/Vol] 21.0 mg/dL Normal 8.0-22.0 [facility] ([place]) Comment on above: Performed By: #### M Nic, GFR, BMP #### [address] [address] CBCon 04-28-2023 Erythrocyte distribution width (RBC) [Ratio] 14.3 % Normal 11.5-15.5 [facility] ([place]) Comment on above: Performed By: #### M Nic, GFR, BMP #### [address] [address] Hematocrit (Bld) [Volume fraction] 38.6 % Low 40.0-52.0 [facility] ([place]) Comment on above: Performed By: #### Scott G, GFR, BMP #### [place] [address] Hgb 12.9 G/dL Low 13.0-17.5 [facility] ([place]) Comment on above: Performed By: #### M G, GFR, BMP #### [place] [id number] MCH (RBC) [Entitic mass] 30.0 pg Normal 27.0-33.0 [facility] ([place]) Comment on above: Performed By: #### Scott G, GFR, BMP #### [place] [address] MCHC 33.5 G/dL Normal 32.0-36.0 [facility] ([place]) Comment on above: Performed By: #### Scott G, GFR, BMP #### [place] [address] MCV (RBC) [Entitic vol] 89.6 fL Normal 81.0-100.0 [facility] ([place]) Comment on above: Performed By: #### Scott G, GFR, BMP #### [place] [address] Platelet 250 10 3/mcL Normal 150-450 [facility] ([place]) Comment on above: Performed By: #### Scott G, GFR, BMP #### [place] [address] Platelet mean volume (Bld) [Entitic vol] 9.6 fL Normal 6.4-10.5 [facility] ([place]) Comment on above: Performed By: #### M G, GFR, BMP #### [place] [address] RBC 4.31 10 6/mcL Low 4.50-6.00 [facility] ([place]) Comment on above: Performed By: #### M G, GFR, BMP #### [place] [address] WBC 9.8 10 3/mcL Normal 4.5-10.8 [facility] ([place]) Comment on above: Performed By: #### Scott Lucero, GFR, BMP #### [address] [address] .GFRon 04-27-2023 GFR >60 Normal [facility] ([place]) Comment on above: Result Comment: GFR Population mean for , Non- Americans Ages 20-29 = 116 mL/min/1.73 sq.m. Ages 30-39 = 107 mL/min/1.73 sq.m. Ages 40-49 = 99 mL/min/1.73 sq.m. Ages 50-59 = 93 mL/min/1.73 sq.m. Ages 60-69 = 85 mL/min/1.73 sq.m. Ages 70+ = 75 mL/min/1.73 sq.m. Chronic Kidney Disease: Less than 60 mL/min/1.73 square meters End Stage Renal Disease: Less than 15 mL/min/1.73 square meters Performed By: #### Scott Lucero, GFR, BMP #### [address] [address] GFR Non- >60 Normal [facility] ([place]) Comment on above: Result Comment: GFR Population mean for , Non- Americans Ages 20-29 = 116 mL/min/1.73 sq.m. Ages 30-39 = 107 mL/min/1.73 sq.m. Ages 40-49 = 99 mL/min/1.73 sq.m. Ages 50-59 = 93 mL/min/1.73 sq.m. Ages 60-69 = 85 mL/min/1.73 sq.m. Ages 70+ = 75 mL/min/1.73 sq.m. Chronic Kidney Disease: Less than 60 mL/min/1.73 square meters End Stage Renal Disease: Less than 15 mL/min/1.73 square meters Performed By: #### Scott Lucero, GFR, BMP #### [address] [address] BMPon 04-27-2023 BUN/Creatinine Ratio 27.1 ratio High 10.0-22.0 [facility] ([place]) Comment on above: Performed By: #### Scott Lucero, GFR, BMP #### [address] [address] Calcium [Mass/Vol] 8.2 mg/dL Low 8.7-10.4 [facility] ([place]) Comment on above: Performed By: #### Scott Lucero, GFR, BMP #### [address] [address] Chloride [Moles/Vol] 104 mmol/L Normal 98-110 [facility] ([place]) Comment on above: Performed By: #### Scott Lucero, GFR, BMP #### [address] [address] CO2 [Moles/Vol] 29 mmol/L Normal 22-32 [facility] ([place]) Comment on above: Performed By: #### Scott Lucero, GFR, BMP #### [address] [address] Creatinine [Mass/Vol] 0.70 mg/dL Normal 0.60-1.40 [facility] ([place]) Comment on above: Performed By: #### Scott Lucero, GFR, BMP #### [address] [address] Electrolyte Balance 8.0 mEq/L Normal 4.0-15.0 [facility] ([place]) Comment on above: Performed By: #### Scott Lucero, GFR, BMP #### [address] [address] Glucose [Mass/Vol] 213 mg/dL High 82-115 [facility] ([place]) Comment on above: Performed By: #### Scott Lucero, GFR, BMP #### [address] [address] Potassium [Moles/Vol] 3.7 mmol/L Normal 3.5-5.0 [facility] ([place]) Comment on above: Result Comment: Spec imen slightly hemolyzed. Performed By: #### Scott Lucero, GFR, BMP #### [address] [address] Sodium [Moles/Vol] 141 mmol/L Normal 136-145 [facility] ([place]) Comment on above: Performed By: #### Scott Lucero, GFR, BMP #### [address] [place], [place] [address] Urea nitrogen [Mass/Vol] 19.0 mg/dL Normal 8.0-22.0 [facility] ([place]) Comment on above: Performed By: #### M Nic, GFR, BMP #### [facility] [address] [place] [address] LABORATORYOrdered By: Abel weinstein on 04-27-2023 Blood Glucose Testing Reason Routine (04/27/23 4:21 PM) [facility] Work Phone: Glucose [Mass/Vol] 215 mg/dL High 82 - 115 mg/dL [facility] Work Phone: LABORATORYOrdered By: Arnulfo Allen on 04-27-2023 Blood Glucose Testing Reason Routine (04/27/23 12:16 PM) [facility] Work Phone: Glucose [Mass/Vol] 296 mg/dL High 82 - 115 mg/dL [facility] Work Phone: Blood Glucose Testing Reason Routine (04/27/23 8:38 AM) [facility] Work Phone: Glucose [Mass/Vol] 209 mg/dL High 82 - 115 mg/dL [facility] Work Phone: LABORATORYOrdered By: SYSTEM SYSTEM on 04-27-2023 Calcium [Mass/Vol] 8.2 mg/dL Low 8.7 - 10. 4 mg/dL ADM SS Chloride [Moles/Vol] 104 mmol/L Normal 98 - 11 0 mEq/L ADM SS CO2 [Moles/Vol] 29 mmol/L Normal 22 - 32 mEq/L ADM SS Creatinine [Mass/Vol] 0.70 mg/dL Normal 0.60 - 1.40 mg/dL ADM SS Electrolyte Balance 8.0 mEq/L Normal 4.0 - 15 .0 mEq/L ADM SS GFR/1.73 sq M.predicted among blacks MDRD (S/P/Bld) [Vol rate/Area] ml/min/1.73sqm Invalid Interpretation Code Chemistry S Comment on above: Interpretive Data: GFR Population mean for , Non- Americans Ages 20-29 = 116 mL/min/1.73 sq.m. Ages 30-39 = 107 mL/min/1.73 sq.m. Ages 40-49 = 99 mL/min/1.73 sq.m. Ages 50-59 = 93 mL/min/1.73 sq.m. Ages 60-69 = 85 mL/min/1.73 sq.m. Ages 70+ = 75 mL/min/1.73 sq.m. Chronic Kidney Disease: Less than 60 mL/min/1.73 square meters End Stage Renal Disease: Less than 15 mL/min/1.73 square meters GFR/1.73 sq M.predicted among non-blacks MDRD (S/P/Bld) [Vol rate/Area] ml/min/1.73sqm Invalid Interpretation Code Chemistry S Comment on above: Interpretive Data: GFR Population mean for , Non- Americans Ages 20-29 = 116 mL/min/1.73 sq.m. Ages 30-39 = 107 mL/min/1.73 sq.m. Ages 40-49 = 99 mL/min/1.73 sq.m. Ages 50-59 = 93 mL/min/1.73 sq.m. Ages 60-69 = 85 mL/min/1.73 sq.m. Ages 70+ = 75 mL/min/1.73 sq.m. Chronic Kidney Disease: Less than 60 mL/min/1.73 square meters End Stage Renal Disease: Less than 15 mL/min/1.73 square meters Glucose [Mass/Vol] 213 mg/dL High 82 - 115 mg/dL ADM SS Magnesium [Mass/Vol] 1.9 mg/dL Normal 1.6 - 2 .4 mg/dL ADM SS Potassium [Moles/Vol] 3.7 mmol/L Normal 3.5 - 5.0 mEq/L ADM SS Comment on above: Result Comment: Spec imen slightly hemolyzed. Sodium [Moles/Vol] 141 mmol/L Normal 136 - 145 mEq/L ADM SS Urea nitrogen [Mass/Vol] 19.0 mg/dL Normal 8.0 - 22.0 mg/dL ADM SS Urea nitrogen/Creatinine [Mass ratio] 27.1 ratio High 10.0 - 22.0 ratio ADM SS MGon 04-27-2023 Magnesium [Mass/Vol] 1.9 mg/dL Normal 1.6-2.4 [facility] ([place]) Comment on above: Performed By: #### Scott Lucero GFR, BMP #### [address] [address] XR CHEST 1 VIEWon 04-27-2023 XR CHEST 1 VIEW ORIGINAL EXAMINATION: ONE XRAY VIEW OF THE CHEST04/27/2023 10:15 am COMPARISON: None. 04/23/2023. HISTORY: ORDERING SYSTEM PROVIDED HISTORY: Reason for Exam: SOB FINDINGS: Exam is limited due to obesity. There is stable cardiomegaly. Depth of inspiration is limited. There is some vascular crowding but no skip pulmonary edema. There are no gross pleural effusions or pneumothorax. IMPRESSION: 1. Limited study due to patient obesity as well as limited depth of inspiration. Considering this, there is no gross acute intrathoracic process. Interpreted by: Joe More Preliminary Report By: Joe More Electronically signed By Joe More Dictated Date: 04/27/2023 10:18:29 AM Prelim Date: 04/27/2023 10:19:36 AM Sign Date: 04/27/2023 10:19:36 AM Ordering Provider: URMILA Garsia [facility] ([place]) .Auto Diffon 04-26-2023 Basophil, Absolute 0.0 10 3/mcL Normal 0.0-0.3 [facility] ([place]) Comment on above: Performed By: #### Scott Lucero GFR, BMP #### [address] [address] Basophils/100 WBC (Bld) 0.4 % Normal 0.0-2.5 [facility] ([place]) Comment on above: Performed By: #### Scott Lucero GFR, BMP #### [address] [address] Eosinophil, Absolute 0.1 10 3/mcL Normal 0.0-0.7 [facility] ([place]) Comment on above: Performed By: #### Scott Lucero GFR, BMP #### [address] [address] Eosinophils/100 WBC (Bld) 0.8 % Normal 0.0-6.0 [facility] ([place]) Comment on above: Performed By: #### M G, GFR, BMP #### [address] [address] Lymphocyte, Absolute 1.1 10 3/mcL Normal 0.9-4.3 [facility] ([place]) Comment on above: Performed By: #### M G, GFR, BMP #### [address] [address] Lymphocytes/100 WBC (Bld) 15.2 % Low 20.0-40.0 [facility] ([place]) Comment on above: Performed By: #### M G, GFR, BMP #### [address] [address] Monocyte, Absolute 0.8 10 3/mcL Normal 0.1-1.4 [facility] ([place]) Comment on above: Performed By: #### Scott G, GFR, BMP #### [address] [address] Monocytes/100 WBC (Bld) 10.7 % Normal 2.0-13.0 [facility] ([place]) Comment on above: Performed By: #### M G, GFR, BMP #### [address] [address] Neutrophils/100 WBC (Bld) 72.9 % Normal 50.0-75.0 [facility] ([place]) Comment on above: Performed By: #### Scott G, GFR, BMP #### [address] [address] .GFRon 04-26-2023 GFR >60 Normal [facility] ([place]) Comment on above: Result Comment: GFR Population mean for , Non- Americans Ages 20-29 = 116 mL/min/1.73 sq.m. Ages 30-39 = 107 mL/min/1.73 sq.m. Ages 40-49 = 99 mL/min/1.73 sq.m. Ages 50-59 = 93 mL/min/1.73 sq.m. Ages 60-69 = 85 mL/min/1.73 sq.m. Ages 70+ = 75 mL/min/1.73 sq.m. Chronic Kidney Disease: Less than 60 mL/min/1.73 square meters End Stage Renal Disease: Less than 15 mL/min/1.73 square meters Performed By: #### A DIFF, CBC, MG, ANEU, BMP, GFR #### [address] [address] GFR Non- >60 Normal [facility] ([place]) Comment on above: Result Comment: GFR Population mean for , Non- Americans Ages 20-29 = 116 mL/min/1.73 sq.m. Ages 30-39 = 107 mL/min/1.73 sq.m. Ages 40-49 = 99 mL/min/1.73 sq.m. Ages 50-59 = 93 mL/min/1.73 sq.m. Ages 60-69 = 85 mL/min/1.73 sq.m. Ages 70+ = 75 mL/min/1.73 sq.m. Chronic Kidney Disease: Less than 60 mL/min/1.73 square meters End Stage Renal Disease: Less than 15 mL/min/1.73 square meters Performed By: #### A DIFF, CBC, MG, ANEU, BMP, GFR #### [address] [address] .NEUABSon 04-26-2023 Neutrophil, Absolute 5.1 10 3/mcL Normal 2.3-8.1 [facility] ([place]) Comment on above: Performed By: #### M G, GFR, BMP #### [address] [address] BMPon 04-26-2023 BUN/Creatinine Ratio 24.3 ratio High 10.0-22.0 [facility] ([place]) Comment on above: Performed By: #### A DIFF, CBC, MG, ANEU, BMP, GFR #### [address] [address] Calcium [Mass/Vol] 8.2 mg/dL Low 8.7-10.4 [facility] ([place]) Comment on above: Performed By: #### A DIFF, CBC, MG, ANEU, BMP, GFR #### [address] [address] Chloride [Moles/Vol] 104 mmol/L Normal 98-110 [facility] ([place]) Comment on above: Performed By: #### A DIFF, CBC, MG, ANEU, BMP, GFR #### [address] [address] CO2 [Moles/Vol] 29 mmol/L Normal 22-32 [facility] ([place]) Comment on above: Performed By: #### A DIFF, CBC, MG, ANEU, BMP, GFR #### [address] [address] Creatinine [Mass/Vol] 0.70 mg/dL Normal 0.60-1.40 [facility] ([place]) Comment on above: Performed By: #### A DIFF, CBC, MG, ANEU, BMP, GFR #### [address] [address] Electrolyte Balance 8.0 mEq/L Normal 4.0-15.0 [facility] ([place]) Comment on above: Performed By: #### A DIFF, CBC, MG, ANEU, BMP, GFR #### [address] [address] Glucose [Mass/Vol] 190 mg/dL High 82-115 [facility] ([place]) Comment on above: Performed By: #### A DIFF, CBC, MG, ANEU, BMP, GFR #### [address] [address] Potassium [Moles/Vol] 3.6 mmol/L Normal 3.5-5.0 [facility] ([place]) Comment on above: Performed By: #### A DIFF, CBC, MG, ANEU, BMP, GFR #### [address] [address] Sodium [Moles/Vol] 141 mmol/L Normal 136-145 [facility] ([place]) Comment on above: Performed By: #### A DIFF, CBC, MG, ANEU, BMP, GFR #### [address] [address] Urea nitrogen [Mass/Vol] 17.0 mg/dL Normal 8.0-22.0 [facility] ([place]) Comment on above: Performed By: #### A DIFF, CBC, MG, ANEU, BMP, GFR #### [address] [address] CBCon 04-26-2023 Erythrocyte distribution width (RBC) [Ratio] 14.6 % Normal 11.5-15.5 [facility] ([place]) Comment on above: Performed By: #### M G, GFR, BMP #### [place] [address] Hematocrit (Bld) [Volume fraction] 34.0 % Low 40.0-52.0 [facility] ([place]) Comment on above: Performed By: #### M G, GFR, BMP #### [place] [address] Hgb 11.6 G/dL Low 13.0-17.5 [facility] ([place]) Comment on above: Performed By: #### M G, GFR, BMP #### [place] [address] MCH (RBC) [Entitic mass] 30.5 pg Normal 27.0-33.0 [facility] ([place]) Comment on above: Performed By: #### M G, GFR, BMP #### [place] [address] MCHC 34.1 G/dL Normal 32.0-36.0 [facility] ([place]) Comment on above: Performed By: #### M G, GFR, BMP #### [place] [address] MCV (RBC) [Entitic vol] 89.5 fL Normal 81.0-100.0 [facility] ([place]) Comment on above: Performed By: #### M G, GFR, BMP #### [place] [id number] Platelet 189 10 3/mcL Normal 150-450 [facility] ([place]) Comment on above: Performed By: #### M G, GFR, BMP #### [place] [address] Platelet mean volume (Bld) [Entitic vol] 9.8 fL Normal 6.4-10.5 [facility] ([place]) Comment on above: Performed By: #### M G, GFR, BMP #### [facility] [address] [place] [address] RBC 3.80 10 6/mcL Low 4.50-6.00 [facility] ([place]) Comment on above: Performed By: #### M G, GFR, BMP #### [facility] [address] [place] [address] WBC 7.0 10 3/mcL Normal 4.5-10.8 [facility] ([place]) Comment on above: Performed By: #### M G, GFR, BMP #### [facility] [address] [place] [address] LABORATORYOrdered By: Manuel Mathews on 04-26-2023 Blood Glucose Interventions Administered agent to decrease blood sugar (04/26/23 8:09 AM) [facility] Work Phone: LABORATORYOrdered By: SYSTEM SYSTEM on 04-26-2023 Basophils (Bld) [#/Vol] 0.0 103/mcL Normal 0.0 - 0.3 10^3/mcL Workflow SS Basophils/100 WBC (Bld) 0.4 % Normal 0.0 - 2.5 % Workflow SS Calcium [Mass/Vol] 8.2 mg/dL Low 8.7 - 10. 4 mg/dL ADM SS Chloride [Moles/Vol] 104 mmol/L Normal 98 - 11 0 mEq/L ADM SS CO2 [Moles/Vol] 29 mmol/L Normal 22 - 32 mEq/L ADM SS Creatinine [Mass/Vol] 0.70 mg/dL Normal 0.60 - 1.40 mg/dL ADM SS Electrolyte Balance 8.0 mEq/L Normal 4.0 - 15 .0 mEq/L ADM SS Eosinophils (Bld) [#/Vol] 0.1 103/mcL Normal 0.0 - 0.7 10^3/mcL AH Workflow SS Eosinophils/100 WBC (Bld) 0.8 % Normal 0.0 - 6.0 % AH Workflow SS Erythrocyte distribution width (RBC) [Ratio] 14.6 % Normal 11.5 - 15.5 % Workflow SS GFR/1.73 sq M.predicted among blacks MDRD (S/P/Bld) [Vol rate/Area] ml/min/1.73sqm Invalid Interpretation Code [place] Chemistry S Comment on above: Interpretive Data: GFR Population mean for , Non- Americans Ages 20-29 = 116 mL/min/1.73 sq.m. Ages 30-39 = 107 mL/min/1.73 sq.m. Ages 40-49 = 99 mL/min/1.73 sq.m. Ages 50-59 = 93 mL/min/1.73 sq.m. Ages 60-69 = 85 mL/min/1.73 sq.m. Ages 70+ = 75 mL/min/1.73 sq.m. Chronic Kidney Disease: Less than 60 mL/min/1.73 square meters End Stage Renal Disease: Less than 15 mL/min/1.73 square meters GFR/1.73 sq M.predicted among non-blacks MDRD (S/P/Bld) [Vol rate/Area] ml/min/1.73sqm Invalid Interpretation Code [place] Chemistry S Comment on above: Interpretive Data: GFR Population mean for , Non- Americans Ages 20-29 = 116 mL/min/1.73 sq.m. Ages 30-39 = 107 mL/min/1.73 sq.m. Ages 40-49 = 99 mL/min/1.73 sq.m. Ages 50-59 = 93 mL/min/1.73 sq.m. Ages 60-69 = 85 mL/min/1.73 sq.m. Ages 70+ = 75 mL/min/1.73 sq.m. Chronic Kidney Disease: Less than 60 mL/min/1.73 square meters End Stage Renal Disease: Less than 15 mL/min/1.73 square meters Glucose [Mass/Vol] 190 mg/dL High 82 - 115 mg/dL ADM SS Hematocrit (Bld) [Volume fraction] 34.0 % Low 40.0 - 52.0 % Workflow SS Hemoglobin (Bld) [Mass/Vol] 11.6 G/dL Low 13.0 - 17.5 G/dL AH Workflow SS Lymphocytes (Bld) [#/Vol] 1.1 103/mcL Normal 0.9 - 4.3 10^3/mcL AH Workflow SS Lymphocytes/100 WBC (Bld) 15.2 % Low 20.0 - 40.0 % AH Workflow SS Magnesium [Mass/Vol] 1.8 mg/dL Normal 1.6 - 2 .4 mg/dL AH ADM SS MCH (RBC) [Entitic mass] 30.5 pg Normal 27.0 - 33.0 pg AH Workflow SS MCHC 34.1 G/dL Normal 32.0 - 36.0 G/dL AH Workflow SS MCV (RBC) [Entitic vol] 89.5 fL Normal 81.0 - 100.0 fL AH Workflow SS Monocytes (Bld) [#/Vol] 0.8 103/mcL Normal 0.1 - 1.4 10^3/mcL AH Workflow SS Monocytes/100 WBC (Bld) 10.7 % Normal 2.0 - 13.0 % AH Workflow SS Neutrophils (Bld) [#/Vol] 5.1 103/mcL Normal 2.3 - 8.1 10^3/mcL AH Workflow SS Neutrophils/100 WBC (Bld) 72.9 % Normal 50.0 - 75.0 % AH Workflow SS Platelet mean volume (Bld) [Entitic vol] 9.8 fL Normal 6.4 - 10.5 fL AH Workflow SS Platelets (Bld) [#/Vol] 189 103/mcL Normal 150 - 450 10^3/mcL AH Workflow SS Potassium [Moles/Vol] 3.6 mmol/L Normal 3.5 - 5.0 mEq/L AH ADM SS RBC (Bld) [#/Vol] 3.80 106/mcL Low 4.50 - 6.00 10^6/mcL AH Workflow SS Sodium [Moles/Vol] 141 mmol/L Normal 136 - 145 mEq/L AH ADM SS Urea nitrogen [Mass/Vol] 17.0 mg/dL Normal 8.0 - 22.0 mg/dL AH ADM SS Urea nitrogen/Creatinine [Mass ratio] 24.3 ratio High 10.0 - 22.0 ratio AH ADM SS WBC (Bld) [#/Vol] 7.0 103/mcL Normal 4.5 - 10.8 10^3/mcL Workflow SS MGon 04-26-2023 Magnesium [Mass/Vol] 1.8 mg/dL Normal 1.6-2.4 [facility] ([place] Comment on above: Performed By: #### A DIFF, CBC, MG, ANEU, BMP, GFR #### [place] [address] .Auto Diffon 04-25-2023 Basophil, Absolute 0.0 10 3/mcL Normal 0.0-0.3 [facility] ([place] Comment on above: Performed By: #### P BNP #### [address] [address] Basophils/100 WBC (Bld) 0.2 % Normal 0.0-2.5 [facility] ([place]) Comment on above: Performed By: #### P BNP #### [address] [address] Eosinophil, Absolute 0.0 10 3/mcL Normal 0.0-0.7 [facility] ([place]) Comment on above: Performed By: #### P BNP #### [address] [address] Eosinophils/100 WBC (Bld) 0.7 % Normal 0.0-6.0 [facility] ([place]) Comment on above: Performed By: #### P BNP #### [address] [address] Lymphocyte, Absolute 0.8 10 3/mcL Low 0.9-4.3 [facility] ([place]) Comment on above: Performed By: #### P BNP #### [address] [address] Lymphocytes/100 WBC (Bld) 12.8 % Low 20.0-40.0 [facility] ([place]) Comment on above: Performed By: #### P BNP #### [address] [address] Monocyte, Absolute 0.7 10 3/mcL Normal 0.1-1.4 [facility] ([place] Comment on above: Performed By: #### P BNP #### [address] [address] Monocytes/100 WBC (Bld) 11.3 % Normal 2.0-13.0 [facility] ([place]) Comment on above: Performed By: #### P BNP #### [address] [address] Neutrophils/100 WBC (Bld) 75.0 % Normal 50.0-75.0 [facility] ([place]) Comment on above: Performed By: #### P BNP #### [address] [address] .GFRon 04-25-2023 GFR >60 Normal [facility] ([place] Comment on above: Result Comment: GFR Population mean for , Non- Americans Ages 20-29 = 116 mL/min/1.73 sq.m. Ages 30-39 = 107 mL/min/1.73 sq.m. Ages 40-49 = 99 mL/min/1.73 sq.m. Ages 50-59 = 93 mL/min/1.73 sq.m. Ages 60-69 = 85 mL/min/1.73 sq.m. Ages 70+ = 75 mL/min/1.73 sq.m. Chronic Kidney Disease: Less than 60 mL/min/1.73 square meters End Stage Renal Disease: Less than 15 mL/min/1.73 square meters Performed By: #### P BNP #### [address] [address] GFR Non- >60 Normal [facility] ([place]) Comment on above: Result Comment: GFR Population mean for , Non- Americans Ages 20-29 = 116 mL/min/1.73 sq.m. Ages 30-39 = 107 mL/min/1.73 sq.m. Ages 40-49 = 99 mL/min/1.73 sq.m. Ages 50-59 = 93 mL/min/1.73 sq.m. Ages 60-69 = 85 mL/min/1.73 sq.m. Ages 70+ = 75 mL/min/1.73 sq.m. Chronic Kidney Disease: Less than 60 mL/min/1.73 square meters End Stage Renal Disease: Less than 15 mL/min/1.73 square meters Performed By: #### P BNP #### [address] [address] .NEUABSon 04-25-2023 Neutrophil, Absolute 4.8 10 3/mcL Normal 2.3-8.1 [facility] ([place]) Comment on above: Performed By: #### P BNP #### [address] [address] BMPon 04-25-2023 BUN/Creatinine Ratio 31.0 ratio High 10.0-22.0 [facility] ([place]) Comment on above: Performed By: #### P BNP #### [address] [address] Calcium [Mass/Vol] 8.1 mg/dL Low 8.7-10.4 [facility] ([place]) Comment on above: Performed By: #### P BNP #### [address] [address] Chloride [Moles/Vol] 105 mmol/L Normal 98-110 [facility] ([place]) Comment on above: Performed By: #### P BNP #### [address] [address] CO2 [Moles/Vol] 28 mmol/L Normal 22-32 [facility] ([place]) Comment on above: Performed By: #### P BNP #### [address] [address] Creatinine [Mass/Vol] 0.71 mg/dL Normal 0.60-1.40 [facility] ([place]) Comment on above: Performed By: #### P BNP #### [address] [address] Electrolyte Balance 7.0 mEq/L Normal 4.0-15.0 [facility] ([place]) Comment on above: Performed By: #### P BNP #### [address] [address] Glucose [Mass/Vol] 169 mg/dL High 82-115 [facility] ([place]) Comment on above: Performed By: #### P BNP #### [address] [address] Potassium [Moles/Vol] 3.7 mmol/L Normal 3.5-5.0 [facility] ([place]) Comment on above: Performed By: #### P BNP #### [address] [address] Sodium [Moles/Vol] 140 mmol/L Normal 136-145 [facility] ([place]) Comment on above: Performed By: #### P BNP #### [place] [address] Urea nitrogen [Mass/Vol] 22.0 mg/dL Normal 8.0-22.0 [facility] ([place]) Comment on above: Performed By: #### P BNP #### [place] [address] CBCon 04-25-2023 Erythrocyte distribution width (RBC) [Ratio] 14.3 % Normal 11.5-15.5 [facility] ([place]) Comment on above: Performed By: #### P BNP #### [place] [address] Hematocrit (Bld) [Volume fraction] 31.5 % Low 40.0-52.0 [facility] ([place]) Comment on above: Performed By: #### P BNP #### [place] [address] Hgb 10.8 G/dL Low 13.0-17.5 [facility] ([place]) Comment on above: Performed By: #### P BNP #### [place] [address] MCH (RBC) [Entitic mass] 30.9 pg Normal 27.0-33.0 [facility] ([place]) Comment on above: Performed By: #### P BNP #### [place] [address] MCHC 34.4 G/dL Normal 32.0-36.0 [facility] ([place]) Comment on above: Performed By: #### P BNP #### [place] [address] MCV (RBC) [Entitic vol] 89.8 fL Normal 81.0-100.0 [facility] ([place]) Comment on above: Performed By: #### P BNP #### [place] [address] Platelet 159 10 3/mcL Normal 150-450 [facility] ([place]) Comment on above: Performed By: #### P BNP #### [facility] [address] [place] [id number] Platelet mean volume (Bld) [Entitic vol] 9.8 fL Normal 6.4-10.5 [facility] ([place]) Comment on above: Performed By: #### P BNP #### [address] [address] RBC 3.51 10 6/mcL Low 4.50-6.00 [facility] ([place]) Comment on above: Performed By: #### P BNP #### [address] [address] WBC 6.4 10 3/mcL Normal 4.5-10.8 [facility] ([place]) Comment on above: Performed By: #### P BNP #### [address] [address] [address] HEAD OR BRAIN W/O CONTRAS Ton 04-25-2023 CT HEAD OR BRAIN W/O CONTRAST ORIGINAL EXAMINATION: CT OF THE HEAD WITHOUT CONTRAST 04/25/2023 3:24 pm TECHNIQUE: CT of the head was performed without the administration of intravenous contrast. Automated exposure control, iterative reconstruction, and/or weight based adjustment of the mA/kV was utilized to reduce the radiation dose to as low as reasonably achievable. COMPARISON: None. HISTORY: ORDERING SYSTEM PROVIDED HISTORY: Reason for Exam: PETECHIAL HEMORRHAGE. HX OF 2 STROKES. POS HTN. WOODLAWN PT. PREV STROKE AFFECTING RT SIDE. SLURRS WORDS petechial hemorrhage evaluation FINDINGS: BRAIN/VENTRICLES: There is moderate hypoattenuation of the deep and subcortical white matter compatible with moderate chronic ischemic microvascular changes. No abnormal extra-axial fluid collection. 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 There is no associated hemorrhage. ORBITS: The visualized portion of the orbits demonstrate no acute abnormality. SINUSES: The visualized paranasal sinuses and mastoid air cells demonstrate no acute abnormality. SOFT TISSUES/SKULL: No acute abnormality of the visualized skull or soft tissues. 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 There is no associated hemorrhage. Follow-up MRI study may be useful for further evaluation, as clinically indicated. Interpreted by: Vernon Mcmanus Preliminary Report By: Vernon Mcmanus Electronically signed By Vernon Mcmanus Dictated Date: 04/25/2023 4:02:59 PM Prelim Date: 04/25/2023 4:14:42 PM Sign Date: 04/25/2023 4:14:42 PM Ordering Provider: KIEL SAINZ [facility] ([place]) LABORATORYOrdered By: SYSTEM SYSTEM on 04-25-2023 Basophils (Bld) [#/Vol] 0.0 103/mcL Normal 0.0 - 0.3 10^3/mcL Workflow SS Basophils/100 WBC (Bld) 0.2 % Normal 0.0 - 2.5 % Workflow SS Calcium [Mass/Vol] 8.1 mg/dL Low 8.7 - 10. 4 mg/dL ADM SS Chloride [Moles/Vol] 105 mmol/L Normal 98 - 11 0 mEq/L ADM SS CO2 [Moles/Vol] 28 mmol/L Normal 22 - 32 mEq/L ADM SS Creatinine [Mass/Vol] 0.71 mg/dL Normal 0.60 - 1.40 mg/dL ADM SS Electrolyte Balance 7.0 mEq/L Normal 4.0 - 15 .0 mEq/L ADM SS Eosinophils (Bld) [#/Vol] 0.0 103/mcL Normal 0.0 - 0.7 10^3/mcL Workflow SS Eosinophils/100 WBC (Bld) 0.7 % Normal 0.0 - 6.0 % Workflow SS Erythrocyte distribution width (RBC) [Ratio] 14.3 % Normal 11.5 - 15.5 % Workflow SS GFR/1.73 sq M.predicted among blacks MDRD (S/P/Bld) [Vol rate/Area] ml/min/1.73sqm Invalid Interpretation Code Chemistry S Comment on above: Interpretive Data: GFR Population mean for , Non- Americans Ages 20-29 = 116 mL/min/1.73 sq.m. Ages 30-39 = 107 mL/min/1.73 sq.m. Ages 40-49 = 99 mL/min/1.73 sq.m. Ages 50-59 = 93 mL/min/1.73 sq.m. Ages 60-69 = 85 mL/min/1.73 sq.m. Ages 70+ = 75 mL/min/1.73 sq.m. Chronic Kidney Disease: Less than 60 mL/min/1.73 square meters End Stage Renal Disease: Less than 15 mL/min/1.73 square meters GFR/1.73 sq M.predicted among non-blacks MDRD (S/P/Bld) [Vol rate/Area] ml/min/1.73sqm Invalid Interpretation Code Chemistry S Comment on above: Interpretive Data: GFR Population mean for , Non- Americans Ages 20-29 = 116 mL/min/1.73 sq.m. Ages 30-39 = 107 mL/min/1.73 sq.m. Ages 40-49 = 99 mL/min/1.73 sq.m. Ages 50-59 = 93 mL/min/1.73 sq.m. Ages 60-69 = 85 mL/min/1.73 sq.m. Ages 70+ = 75 mL/min/1.73 sq.m. Chronic Kidney Disease: Less than 60 mL/min/1.73 square meters End Stage Renal Disease: Less than 15 mL/min/1.73 square meters Glucose [Mass/Vol] 169 mg/dL High 82 - 115 mg/dL ADM SS Hematocrit (Bld) [Volume fraction] 31.5 % Low 40.0 - 52.0 % AH Workflow SS Hemoglobin (Bld) [Mass/Vol] 10.8 G/dL Low 13.0 - 17.5 G/dL AH Workflow SS Lymphocytes (Bld) [#/Vol] 0.8 103/mcL Low 0.9 - 4.3 10^3/mcL Workflow SS Lymphocytes/100 WBC (Bld) 12.8 % Low 20.0 - 40.0 % AH Workflow SS MCH (RBC) [Entitic mass] 30.9 pg Normal 27.0 - 33.0 pg AH Workflow SS MCHC 34.4 G/dL Normal 32.0 - 36.0 G/dL Workflow SS MCV (RBC) [Entitic vol] 89.8 fL Normal 81.0 - 100.0 fL Workflow SS Monocytes (Bld) [#/Vol] 0.7 103/mcL Normal 0.1 - 1.4 10^3/mcL AH Workflow SS Monocytes/100 WBC (Bld) 11.3 % Normal 2.0 - 13.0 % AH Workflow SS Neutrophils (Bld) [#/Vol] 4.8 103/mcL Normal 2.3 - 8.1 10^3/mcL AH Workflow SS Neutrophils/100 WBC (Bld) 75.0 % Normal 50.0 - 75.0 % AH Workflow SS Platelet mean volume (Bld) [Entitic vol] 9.8 fL Normal 6.4 - 10.5 fL AH Workflow SS Platelets (Bld) [#/Vol] 159 103/mcL Normal 150 - 450 10^3/mcL AH Workflow SS Potassium [Moles/Vol] 3.7 mmol/L Normal 3.5 - 5.0 mEq/L AH ADM SS RBC (Bld) [#/Vol] 3.51 106/mcL Low 4.50 - 6.00 10^6/mcL AH Workflow SS Sodium [Moles/Vol] 140 mmol/L Normal 136 - 145 mEq/L ADM SS Urea nitrogen [Mass/Vol] 22.0 mg/dL Normal 8.0 - 22.0 mg/dL ADM SS Urea nitrogen/Creatinine [Mass ratio] 31.0 ratio High 10.0 - 22.0 ratio AH ADM SS WBC (Bld) [#/Vol] 6.4 103/mcL Normal 4.5 - 10.8 10^3/mcL AH Workflow SS .Auto Diffon 04-24-2023 Basophil, Absolute 0.0 10 3/mcL Normal 0.0-0.3 [facility] ([place]) Comment on above: Performed By: #### A DIFF, CBC, MG, ANEU, BMP, GFR #### [address] [address] Basophils/100 WBC (Bld) 0.3 % Normal 0.0-2.5 [facility] ([place]) Comment on above: Performed By: #### A DIFF, CBC, MG, ANEU, BMP, GFR #### [address] [address] Eosinophil, Absolute 0.0 10 3/mcL Normal 0.0-0.7 [facility] ([place]) Comment on above: Performed By: #### A DIFF, CBC, MG, ANEU, BMP, GFR #### [address] [address] Eosinophils/100 WBC (Bld) 0.5 % Normal 0.0-6.0 [facility] ([place]) Comment on above: Performed By: #### A DIFF, CBC, MG, ANEU, BMP, GFR #### [address] [address] Lymphocyte, Absolute 0.8 10 3/mcL Low 0.9-4.3 [facility] ([place]) Comment on above: Performed By: #### A DIFF, CBC, MG, ANEU, BMP, GFR #### [address] [address] Lymphocytes/100 WBC (Bld) 14.6 % Low 20.0-40.0 [facility] ([place]) Comment on above: Performed By: #### A DIFF, CBC, MG, ANEU, BMP, GFR #### [address] [address] Monocyte, Absolute 0.7 10 3/mcL Normal 0.1-1.4 [facility] ([place]) Comment on above: Performed By: #### A DIFF, CBC, MG, ANEU, BMP, GFR #### [address] [address] Monocytes/100 WBC (Bld) 14.4 % High 2.0-13.0 [facility] ([place]) Comment on above: Performed By: #### A DIFF, CBC, MG, ANEU, BMP, GFR #### [address] [address] Neutrophils/100 WBC (Bld) 70.2 % Normal 50.0-75.0 [facility] ([place]) Comment on above: Performed By: #### A DIFF, CBC, MG, ANEU, BMP, GFR #### [address] [address] .GFRon 04-24-2023 GFR >60 Normal [facility] ([place]) Comment on above: Result Comment: GFR Population mean for , Non- Americans Ages 20-29 = 116 mL/min/1.73 sq.m. Ages 30-39 = 107 mL/min/1.73 sq.m. Ages 40-49 = 99 mL/min/1.73 sq.m. Ages 50-59 = 93 mL/min/1.73 sq.m. Ages 60-69 = 85 mL/min/1.73 sq.m. Ages 70+ = 75 mL/min/1.73 sq.m. Chronic Kidney Disease: Less than 60 mL/min/1.73 square meters End Stage Renal Disease: Less than 15 mL/min/1.73 square meters Performed By: #### P BNP #### [address] [address] GFR Non- >60 Normal [facility] ([place]) Comment on above: Result Comment: GFR Population mean for , Non- Americans Ages 20-29 = 116 mL/min/1.73 sq.m. Ages 30-39 = 107 mL/min/1.73 sq.m. Ages 40-49 = 99 mL/min/1.73 sq.m. Ages 50-59 = 93 mL/min/1.73 sq.m. Ages 60-69 = 85 mL/min/1.73 sq.m. Ages 70+ = 75 mL/min/1.73 sq.m. Chronic Kidney Disease: Less than 60 mL/min/1.73 square meters End Stage Renal Disease: Less than 15 mL/min/1.73 square meters Performed By: #### P BNP #### [address] [address] .NEUABSon 04-24-2023 Neutrophil, Absolute 3.6 10 3/mcL Normal 2.3-8.1 [facility] ([place]) Comment on above: Performed By: #### A DIFF, CBC, MG, ANEU, BMP, GFR #### [address] [address] BMPon 04-24-2023 BUN/Creatinine Ratio 35.5 ratio High 10.0-22.0 [facility] ([place]) Comment on above: Performed By: #### A DIFF, CBC, MG, ANEU, BMP, GFR #### [address] [address] Calcium [Mass/Vol] 8.3 mg/dL Low 8.7-10.4 [facility] ([place]) Comment on above: Performed By: #### A DIFF, CBC, MG, ANEU, BMP, GFR #### [place] [id number] Chloride [Moles/Vol] 108 mmol/L Normal 98-110 [facility] ([place]) Comment on above: Performed By: #### A DIFF, CBC, MG, ANEU, BMP, GFR #### [place] [id number] CO2 [Moles/Vol] 30 mmol/L Normal 22-32 [facility] ([place]) Comment on above: Performed By: #### A DIFF, CBC, MG, ANEU, BMP, GFR #### [place] [address] Creatinine [Mass/Vol] 0.93 mg/dL Normal 0.60-1.40 [facility] ([place]) Comment on above: Performed By: #### A DIFF, CBC, MG, ANEU, BMP, GFR #### [place] [address] Electrolyte Balance 6.0 mEq/L Normal 4.0-15.0 [facility] ([place]) Comment on above: Performed By: #### A DIFF, CBC, MG, ANEU, BMP, GFR #### [place] [address] Glucose [Mass/Vol] 180 mg/dL High 82-115 [facility] ([place]) Comment on above: Performed By: #### A DIFF, CBC, MG, ANEU, BMP, GFR #### [address] [address] Potassium [Moles/Vol] 3.4 mmol/L Low 3.5-5.0 [facility] ([place]) Comment on above: Performed By: #### A DIFF, CBC, MG, ANEU, BMP, GFR #### [place] [id number] Sodium [Moles/Vol] 144 mmol/L Normal 136-145 [facility] ([place]) Comment on above: Performed By: #### A DIFF, CBC, MG, ANEU, BMP, GFR #### [place] [address] Urea nitrogen [Mass/Vol] 33.0 mg/dL High 8.0-22.0 [facility] ([place]) Comment on above: Performed By: #### A DIFF, CBC, MG, ANEU, BMP, GFR #### [place] [id number] CBCon 04-24-2023 Erythrocyte distribution width (RBC) [Ratio] 14.6 % Normal 11.5-15.5 [facility] ([place]) Comment on above: Performed By: #### A DIFF, CBC, MG, ANEU, BMP, GFR #### [place] [address] Hematocrit (Bld) [Volume fraction] 33.9 % Low 40.0-52.0 [facility] ([place]) Comment on above: Performed By: #### A DIFF, CBC, MG, ANEU, BMP, GFR #### [place] [address] Hgb 11.4 G/dL Low 13.0-17.5 [facility] ([place]) Comment on above: Performed By: #### A DIFF, CBC, MG, ANEU, BMP, GFR #### [place] [address] MCH (RBC) [Entitic mass] 30.2 pg Normal 27.0-33.0 [facility] ([place]) Comment on above: Performed By: #### A DIFF, CBC, MG, ANEU, BMP, GFR #### [place] [address] MCHC 33.6 G/dL Normal 32.0-36.0 [facility] ([place]) Comment on above: Performed By: #### A DIFF, CBC, MG, ANEU, BMP, GFR #### [place] [address] MCV (RBC) [Entitic vol] 89.7 fL Normal 81.0-100.0 [facility] ([place]) Comment on above: Performed By: #### A DIFF, CBC, MG, ANEU, BMP, GFR #### [address] [address] Platelet 180 10 3/mcL Normal 150-450 [facility] ([place] Comment on above: Performed By: #### A DIFF, CBC, MG, ANEU, BMP, GFR #### [address] [address] Platelet mean volume (Bld) [Entitic vol] 9.6 fL Normal 6.4-10.5 [facility] ([place]) Comment on above: Performed By: #### A DIFF, CBC, MG, ANEU, BMP, GFR #### [place] [id number] RBC 3.78 10 6/mcL Low 4.50-6.00 [facility] ([place]) Comment on above: Performed By: #### A DIFF, CBC, MG, ANEU, BMP, GFR #### [place] [id number] WBC 5.1 10 3/mcL Normal 4.5-10.8 [facility] ([place] Comment on above: Performed By: #### A DIFF, CBC, MG, ANEU, BMP, GFR #### [address] [address] LABORATORYOrdered By: SYSTEM SYSTEM on 04-24-2023 Basophils (Bld) [#/Vol] 0.0 103/mcL Normal 0.0 - 0.3 10^3/mcL AH Workflow SS Basophils/100 WBC (Bld) 0.3 % Normal 0.0 - 2.5 % AH Workflow SS Eosinophils (Bld) [#/Vol] 0.0 103/mcL Normal 0.0 - 0.7 10^3/mcL AH Workflow SS Eosinophils/100 WBC (Bld) 0.5 % Normal 0.0 - 6.0 % AH Workflow SS Erythrocyte distribution width (RBC) [Ratio] 14.6 % Normal 11.5 - 15.5 % AH Workflow SS Hematocrit (Bld) [Volume fraction] 33.9 % Low 40.0 - 52.0 % AH Workflow SS Hemoglobin (Bld) [Mass/Vol] 11.4 G/dL Low 13.0 - 17.5 G/dL AH Workflow SS Lymphocytes (Bld) [#/Vol] 0.8 103/mcL Low 0.9 - 4.3 10^3/mcL AH Workflow SS Lymphocytes/100 WBC (Bld) 14.6 % Low 20.0 - 40.0 % AH Workflow SS Magnesium [Mass/Vol] 1.8 mg/dL Normal 1.6 - 2 .4 mg/dL AH ADM SS MCH (RBC) [Entitic mass] 30.2 pg Normal 27.0 - 33.0 pg AH Workflow SS MCHC 33.6 G/dL Normal 32.0 - 36.0 G/dL AH Workflow SS MCV (RBC) [Entitic vol] 89.7 fL Normal 81.0 - 100.0 fL AH Workflow SS Monocytes (Bld) [#/Vol] 0.7 103/mcL Normal 0.1 - 1.4 10^3/mcL AH Workflow SS Monocytes/100 WBC (Bld) 14.4 % High 2.0 - 13.0 % AH Workflow SS Neutrophils (Bld) [#/Vol] 3.6 103/mcL Normal 2.3 - 8.1 10^3/mcL AH Workflow SS Neutrophils/100 WBC (Bld) 70.2 % Normal 50.0 - 75.0 % AH Workflow SS Platelet mean volume (Bld) [Entitic vol] 9.6 fL Normal 6.4 - 10.5 fL AH Workflow SS Platelets (Bld) [#/Vol] 180 103/mcL Normal 150 - 450 10^3/mcL AH Workflow SS RBC (Bld) [#/Vol] 3.78 106/mcL Low 4.50 - 6.00 10^6/mcL AH Workflow SS WBC (Bld) [#/Vol] 5.1 103/mcL Normal 4.5 - 10.8 10^3/mcL AH Workflow SS MGon 04-24-2023 Magnesium [Mass/Vol] 1.8 mg/dL Normal 1.6-2.4 [facility] ([place] Comment on above: Performed By: #### A DIFF, CBC, MG, ANEU, BMP, GFR #### [address] [address] XR ABDOMEN APon 04-24-2023 XR ABDOMEN AP ORIGINAL EXAMINATION: ONE SUPINE XRAY VIEW(S) OF THE ABDOMEN04/24/2023 10:52 am COMPARISON: 04/23/2023 HISTORY: ORDERING SYSTEM PROVIDED HISTORY: Reason for Exam: SBO FINDINGS: Enteric tube courses centrally with the distal tip and side port over the mid body of the stomach. Bowel gas pattern is nonobstructive. IMPRESSION: Nonobstructive bowel gas pattern. Enteric tube is in place. Interpreted by: Kassidy Clark DO Preliminary Report By: Kassidy Clark DO Electronically signed By Kassidy Clark DO Dictated Date: 04/24/2023 11:15:28 AM Prelim Date: 04/24/2023 11:17:01 AM Sign Date: 04/24/2023 11:17:01 AM Ordering Provider: ARIA Garsia [facility] ([place]) .Auto Diffon 04-23-2023 Basophil, Absolute 0.0 10 3/mcL Normal 0.0-0.3 [facility] ([place]) Comment on above: Performed By: #### A DIFF, CBC, MG, ANEU, BMP, GFR #### [address] [address] Basophils/100 WBC (Bld) 0.2 % Normal 0.0-2.5 [facility] ([place]) Comment on above: Performed By: #### A DIFF, CBC, MG, ANEU, BMP, GFR #### [address] [address] Eosinophil, Absolute 0.0 10 3/mcL Normal 0.0-0.7 [facility] ([place]) Comment on above: Performed By: #### A DIFF, CBC, MG, ANEU, BMP, GFR #### [address] [address] Eosinophils/100 WBC (Bld) 0.0 % Normal 0.0-6.0 [facility] ([place]) Comment on above: Performed By: #### A DIFF, CBC, MG, ANEU, BMP, GFR #### [address] [address] Lymphocyte, Absolute 0.6 10 3/mcL Low 0.9-4.3 [facility] ([place]) Comment on above: Performed By: #### A DIFF, CBC, MG, ANEU, BMP, GFR #### [address] [address] Lymphocytes/100 WBC (Bld) 6.8 % Low 20.0-40.0 [facility] ([place]) Comment on above: Performed By: #### A DIFF, CBC, MG, ANEU, BMP, GFR #### [address] [address] Monocyte, Absolute 1.1 10 3/mcL Normal 0.1-1.4 [facility] ([place] Comment on above: Performed By: #### A DIFF, CBC, MG, ANEU, BMP, GFR #### [address] [address] Monocytes/100 WBC (Bld) 12.4 % Normal 2.0-13.0 [facility] ([place] Comment on above: Performed By: #### A DIFF, CBC, MG, ANEU, BMP, GFR #### [address] [address] Neutrophils/100 WBC (Bld) 80.6 % High 50.0-75.0 [facility] ([place] Comment on above: Performed By: #### A DIFF, CBC, MG, ANEU, BMP, GFR #### [address] [address] .GFRon 04-23-2023 GFR >60 Normal [facility] ([place] Comment on above: Result Comment: GFR Population mean for , Non- Americans Ages 20-29 = 116 mL/min/1.73 sq.m. Ages 30-39 = 107 mL/min/1.73 sq.m. Ages 40-49 = 99 mL/min/1.73 sq.m. Ages 50-59 = 93 mL/min/1.73 sq.m. Ages 60-69 = 85 mL/min/1.73 sq.m. Ages 70+ = 75 mL/min/1.73 sq.m. Chronic Kidney Disease: Less than 60 mL/min/1.73 square meters End Stage Renal Disease: Less than 15 mL/min/1.73 square meters Performed By: #### A DIFF, CBC, MG, ANEU, BMP, GFR #### [address] [address] GFR Non- >60 Normal [facility] ([place] Comment on above: Result Comment: GFR Population mean for , Non- Americans Ages 20-29 = 116 mL/min/1.73 sq.m. Ages 30-39 = 107 mL/min/1.73 sq.m. Ages 40-49 = 99 mL/min/1.73 sq.m. Ages 50-59 = 93 mL/min/1.73 sq.m. Ages 60-69 = 85 mL/min/1.73 sq.m. Ages 70+ = 75 mL/min/1.73 sq.m. Chronic Kidney Disease: Less than 60 mL/min/1.73 square meters End Stage Renal Disease: Less than 15 mL/min/1.73 square meters Performed By: #### A DIFF, CBC, MG, ANEU, BMP, GFR #### [place] [address] .MDWon 04-23-2023 Monocyte Distribution Width 26.98 High 0.00-20.00 [facility] ([place]) Comment on above: Result Comment: For adults in ED, MDW>20.0 may be associated with a higher risk of sepsis during the first 12hrs of hospital admission Performed By: #### A DIFF, CBC, MG, ANEU, BMP, GFR #### [place] [address] .NEUABSon 04-23-2023 Neutrophil, Absolute 7.4 10 3/mcL Normal 2.3-8.1 [facility] ([place]) Comment on above: Performed By: #### A DIFF, CBC, MG, ANEU, BMP, GFR #### [place] [address] CBCon 04-23-2023 Erythrocyte distribution width (RBC) [Ratio] 14.9 % Normal 11.5-15.5 [facility] ([place]) Comment on above: Performed By: #### A DIFF, CBC, MG, ANEU, BMP, GFR #### [place] [address] Hematocrit (Bld) [Volume fraction] 36.1 % Low 40.0-52.0 [facility] ([place] Comment on above: Performed By: #### A DIFF, CBC, MG, ANEU, BMP, GFR #### [place] [address] Hgb 12.4 G/dL Low 13.0-17.5 [facility] ([place] Comment on above: Performed By: #### A DIFF, CBC, MG, ANEU, BMP, GFR #### [place] [address] MCH (RBC) [Entitic mass] 30.9 pg Normal 27.0-33.0 [facility] ([place] Comment on above: Performed By: #### A DIFF, CBC, MG, ANEU, BMP, GFR #### [place] [address] MCHC 34.4 G/dL Normal 32.0-36.0 [facility] ([place] Comment on above: Performed By: #### A DIFF, CBC, MG, ANEU, BMP, GFR #### [place] [address] MCV (RBC) [Entitic vol] 90.0 fL Normal 81.0-100.0 [facility] ([place] Comment on above: Performed By: #### A DIFF, CBC, MG, ANEU, BMP, GFR #### [place] [address] Platelet 198 10 3/mcL Normal 150-450 [facility] ([place] Comment on above: Performed By: #### A DIFF, CBC, MG, ANEU, BMP, GFR #### [place] [address] Platelet mean volume (Bld) [Entitic vol] 10.1 fL Normal 6.4-10.5 [facility] ([place] Comment on above: Performed By: #### A DIFF, CBC, MG, ANEU, BMP, GFR #### [place] [address] RBC 4.01 10 6/mcL Low 4.50-6.00 [facility] ([place]) Comment on above: Performed By: #### A DIFF, CBC, MG, ANEU, BMP, GFR #### [address] [address] WBC 9.2 10 3/mcL Normal 4.5-10.8 [facility] ([place]) Comment on above: Performed By: #### A DIFF, CBC, MG, ANEU, BMP, GFR #### [address] [address] CMPon 04-23-2023 Albumin Level 2.8 G/dL Low 3.2-4.8 [facility] ([place]) Comment on above: Performed By: #### A DIFF, CBC, MG, ANEU, BMP, GFR #### [place] [id number] Albumin/Globulin [Mass ratio] 0.7 {ratio} Low 0.9-1.6 [facility] ([place] Comment on above: Performed By: #### A DIFF, CBC, MG, ANEU, BMP, GFR #### [place] [id number] ALP [Catalytic activity/Vol] 91 U/L Normal 38-126 [facility] ([place] Comment on above: Performed By: #### A DIFF, CBC, MG, ANEU, BMP, GFR #### [place] [id number] ALT [Catalytic activity/Vol] 11 U/L Low 12-55 [facility] ([place]) Comment on above: Performed By: #### A DIFF, CBC, MG, ANEU, BMP, GFR #### [place] [id number] AST [Catalytic activity/Vol] 20 U/L Normal 8-34 [facility] ([place] Comment on above: Performed By: #### A DIFF, CBC, MG, ANEU, BMP, GFR #### [place] [id number] Bili Total 0.90 mg/dL Normal 0.20-1.20 [facility] ([place]) Comment on above: Result Comment: Use of this assay is not recommended for patients undergoing treatment with eltrombopag due to the potential for falsely elevated results. Performed By: #### A DIFF, CBC, MG, ANEU, BMP, GFR #### [address] [address] BUN/Creatinine Ratio 25.6 ratio High 10.0-22.0 [facility] ([place]) Comment on above: Performed By: #### A DIFF, CBC, MG, ANEU, BMP, GFR #### [address] [address] Calcium [Mass/Vol] 9.1 mg/dL Normal 8.7-10.4 [facility] ([place]) Comment on above: Performed By: #### A DIFF, CBC, MG, ANEU, BMP, GFR #### [place] [id number] Chloride [Moles/Vol] 104 mmol/L Normal 98-110 [facility] ([place]) Comment on above: Performed By: #### A DIFF, CBC, MG, ANEU, BMP, GFR #### [place] [id number] CO2 [Moles/Vol] 28 mmol/L Normal 22-32 [facility] ([place]) Comment on above: Performed By: #### A DIFF, CBC, MG, ANEU, BMP, GFR #### [place] [address] Creatinine [Mass/Vol] 1.17 mg/dL Normal 0.60-1.40 Formerly [facility], [facility] ([place]) Comment on above: Performed By: #### A DIFF, CBC, MG, ANEU, BMP, GFR #### [place] [id number] Electrolyte Balance 4.0 mEq/L Normal 4.0-15.0 [facility] ([place]) Comment on above: Performed By: #### A DIFF, CBC, MG, ANEU, BMP, GFR #### [place] [id number] Globulin 3.8 G/dL Normal 1.5-3.8 [facility] ([place]) Comment on above: Performed By: #### A DIFF, CBC, MG, ANEU, BMP, GFR #### [place] [id number] Glucose [Mass/Vol] 292 mg/dL High 82-115 [facility] ([place]) Comment on above: Performed By: #### A DIFF, CBC, MG, ANEU, BMP, GFR #### [address] [address] Potassium [Moles/Vol] 4.2 mmol/L Normal 3.5-5.0 Formerly [facility], [facility] ([place]) Comment on above: Result Comment: Spec imen slightly hemolyzed. Performed By: #### A DIFF, CBC, MG, ANEU, BMP, GFR #### [address] [address] Sodium [Moles/Vol] 136 mmol/L Normal 136-145 [facility] ([place]) Comment on above: Performed By: #### A DIFF, CBC, MG, ANEU, BMP, GFR #### [place] [id number] Total Protein 6.6 G/dL Normal 5.7-8.2 [facility] ([place]) Comment on above: Result Comment: No te - New Reference Range in effect 19 Performed By: #### A DIFF, CBC, MG, ANEU, BMP, GFR #### [place] [id number] Urea nitrogen [Mass/Vol] 30.0 mg/dL High 8.0-22.0 [facility] ([place]) Comment on above: Performed By: #### A DIFF, CBC, MG, ANEU, BMP, GFR #### [place] [address] CT ABD/PELVIS W/ IV CONTRAST ONLYon 04-23-2023 CT ABD/PELVIS W/ IV CONTRAST ONLY ORIGINAL EXAMINATION: CT OF THE ABDOMEN AND PELVIS WITH CONTRAST04/23/2023 8:52 am COMPARISON: None TECHNIQUE: CT of the abdomen and pelvis was performed with the administration of intravenous contrast. Multiplanar reformatted images are provided for review. Automated exposure control, iterative reconstruction, and/or weight based adjustment of the mA/kV was utilized to reduce the radiation dose to as low as reasonably achievable. HISTORY: ORDERING SYSTEM PROVIDED HISTORY: Reason for Exam: Per ems and patient complaints of severe abdominal pain and fevers since Monday. abdominal pain, FINDINGS: There is evidence of mechanical small-bowel obstruction that seems to be in the mid small bowel. A segment of small bowel in the right mid abdomen anteriorly has some adjacent mesenteric stranding and there is suggestion of mild pneumatosis in its wall. No similar findings in the remainder of the small bowel. The distal small bowel is collapsed. Normal appendix. No obvious acute pathology of the colon is seen. The stomach is over distended with fluid also. No ascites or extraluminal free air. The liver, gallbladder, spleen, pancreas, adrenal glands and both kidneys show no acute contributory abnormalities. There is a 4.3 cm fluid attenuation left renal lesion consistent with cyst. Extensively calcified nonaneurysmal aorta and iliac arteries. Grossly normal urinary bladder. Prostate is not enlarged. No significant ventral hernia defects. Some gas in the anterior abdominal wall soft tissues is probably from recent injection. The included lung bases show moderate pericardial effusion. No pleural effusions. Bibasilar atelectasis and some nonspecific infiltrates in the left lower lobe and some left lower lobe atelectasis. No acute skeletal abnormality. Extensive degenerative changes and postop change in the lumbar spine. IMPRESSION: Evidence of mechanical small-bowel obstruction as described. The precise level of obstruction and underlying etiology is not clearly evident. A short segment of small bowel has adjacent mesenteric stranding and likely mild pneumatosis as described. Moderate pericardial effusion. Mild left lower lobe atelectasis and some nodular appearing lower lobe infiltrates which are nonspecific and will require attention on follow-up. Other incidental findings as described. RECOMMENDATIONS: Unless otherwise specified, incidental findings do not require dedicated imaging and follow-up. Interpreted by: Shaheen Valdivia MD Preliminary Report By: Shaheen Valdivia MD Electronically signed By Shaheen Valdivia MD Dictated Date: 04/23/2023 8:56:36 AM Prelim Date: 04/23/2023 9:05:46 AM Sign Date: 04/23/2023 9:05:46 AM Ordering Provider: PRAKASH Garsia [facility]) CVFLURVochester 04-23-2023 FLU A PCR Negative Normal Negative [facility]) Comment on above: Result Comment: [place] [id number] Performed By: #### A DIFF, CBC, MG, ANEU, BMP, GFR #### [place] [address] FLU B PCR Negative Normal Negative [facility] ([place]) Comment on above: Result Comment: [place] [id number] Performed By: #### A DIFF, CBC, MG, ANEU, BMP, GFR #### [facility] [address] [place] [address] RSV PCR Negative Normal Negative [facility] ([place]) Comment on above: Result Comment: [place] [id number] Performed By: #### A DIFF, CBC, MG, ANEU, BMP, GFR #### [address] [address] SARS-CoV-2 (COVID-19) RNA SARAH+probe Ql (Unsp spec) Negative Normal Negative [facility] ([place]) Comment on above: Result Comment: Note s [id number] This test has been authorized by FDA under an EUA for use by authorized laboratories and has not been FDA cleared or approved. Results from the Xpert Xpress SARS-CoV-2/Flu/RSV or Xpert Xpress SARS-CoV-2 only test should be correlated with the clinical history, epidemiological data, and other data available to the clinician evaluating the patient. Performance of the Xpert Xpress SARS-CoV-2/Flu/RSV or Xpert Xpress SARS-CoV-2 only test has only been established in nasopharyngeal swab specimens. Erroneous test results might occur from improper specimen collection; failure to follow the recommended sample collection, handling, and storage procedures; technical error; or sample mix-up.False negative results may occur if virus is present at levels below the analytical limit of detection. Viral nucleic acid may persist in vivo, independent of virus viability. Detection of analyte target(s) does not imply that the corresponding virus(es) are infectious or are the causative agents for clinical symptoms.Recent patient exposure to FluMist or other live attenuated influenza vaccines may cause inaccurate positive results. Performed By: #### A DIFF, CBC, MG, ANEU, BMP, GFR #### [address] [address] LABORATORYOrdered By: Ya Martinez on 04-23-2023 Natriuretic peptide.B prohormone N-Terminal [Mass/Vol] 1670 pg/mL High 0 - 900 pg/mL Auto Chem SS Comment on above: Interpretive Data: N T-proBNP results of less than 300 pg/mL effectively rules out acute congestive heart failure with 99% negative predictive value. LABORATORYOrdered By: Reaction SYSTEM on 04-23-2023 Troponin I.cardiac DL <= 0.01 ng/mL [Mass/Vol] 10.00 ng/L Normal 0.00 - 54.00 ng/L AH ADM SS Albumin BCP dye [Mass/Vol] 2.8 G/dL Low 3.2 - 4.8 G/dL AH ADM SS Albumin/Globulin [Mass ratio] 0.7 {ratio} Low 0.9 - 1.6 ratio AH ADM SS ALP [Catalytic activity/Vol] 91 U/L Normal 38 - 126 U/L AH ADM SS ALT No additional P-5'-P [Catalytic activity/Vol] 11 U/L Low 12 - 55 U/L AH ADM SS AST [Catalytic activity/Vol] 20 U/L Normal 8 - 34 U/L AH ADM SS Bilirubin [Mass/Vol] 0.90 mg/dL Normal 0.20 - 1.20 mg/dL AH ADM SS Comment on above: Interpretive Data: U se of this assay is not recommended for patients undergoing treatment with eltrombopag due to the potential for falsely elevated results. Globulin 3.8 G/dL Normal 1.5 - 3.8 G/dL AH ADM SS Lipase [Catalytic activity/Vol] 20 U/L Normal 12 - 53 U/L AH ADM SS Comment on above: Interpretive Data: * *Note - New Reference Range in effect 19 Monocyte distribution width Auto (Bld) [Entitic vol] 26.98 1 High 0.00 - 20.00 AH Workflow SS Comment on above: Result Comment: For adults in ED, MDW>20.0 may be associated with a higher risk of sepsis during the first 12hrs of hospital admission Protein [Mass/Vol] 6.6 G/dL Normal 5.7 - 8.2 G/dL AH ADM SS Comment on above: Interpretive Data: * *Note - New Reference Range in effect 19 LABORATORYOrdered By: Kenia Linares on 04-23-2023 Appearance (U) Clear (04/23/23 5:34 AM) Normal Clear AH Auto Urine SS Bilirubin Ql (U) Negative (04/23/23 5:34 AM) Normal Neg-Trace AH Auto Urine SS Color (U) Yellow (04/23/23 5:34 AM) Normal AH Auto Urine SS Glucose Test strip (U) [Mass/Vol] Negative Normal Negative AH Auto Urine SS Hemoglobin Auto test strip (U) [Mass/Vol] Negative (04/23/23 5:34 AM) Normal Neg-Trace AH Auto Urine SS Ketones Ql (U) Negative Normal Neg-Trace AH Auto Urine SS UA Leuk Est Negative (04/23/23 5:34 AM) Normal Negative AH Auto Urine SS UA Nitrite Negative (04/23/23 5:34 AM) Normal Negative AH Auto Urine SS UA pH 5.0 (04/23/23 5:34 AM) Normal 5.0 - 8.0 AH Auto Urine SS UA Protein 30 mg/dL Normal Negative AH Auto Urine SS UA Spec Grav 1.020 (04/23/23 5:34 AM) Normal 1.006-1.02 9 AH Auto Urine SS UA Specimen Type Clean Catch (04/23/23 5:34 AM) Normal AH Auto Urine SS UA Urobilinogen 1.0 E.U./dL Normal 0.2-1.0 AH Auto Urine SS LABORATORYOrdered By: Burton Arredondo on 04-23-2023 FLUAV RNA SARAH+probe Ql (Resp) Negative 10 (04/23/23 5:34 AM) Normal Negative AH Auto Viro/Sero SS Comment on above: Result Comment: [place] [id number] FLUBV RNA SARAH+probe Ql (Resp) Negative 11 (04/23/23 5:34 AM) Normal Negative AH Auto Viro/Sero SS Comment on above: Result Comment: Note s [id number] RSV PCR Negative 12 (04/23/23 5:34 AM) Normal Negative AH Auto Viro/Sero SS Comment on above: Result Comment: Note s [id number] SARS-CoV-2 (COVID-19) RNA SARAH+probe Ql (Resp) Negative 8, 9 (04/23/23 5:34 AM) Normal Negative AH Auto Viro/Sero SS Comment on above: Result Comment: Note s [id number] Interpretive Data: T his test has been authorized by FDA under an EUA for use by authorized laboratories and has not been FDA cleared or approved. Results from the Xpert Xpress SARS-CoV-2/Flu/RSV or Xpert Xpress SARS-CoV-2 only test should be correlated with the clinical history, epidemiological data, and other data available to the clinician evaluating the patient. Performance of the Xpert Xpress SARS-CoV-2/Flu/RSV or Xpert Xpress SARS-CoV-2 only test has only been established in nasopharyngeal swab specimens. Erroneous test results might occur from improper specimen collection; failure to follow the recommended sample collection, handling, and storage procedures; technical error; or sample mix-up.False negative results may occur if virus is present at levels below the analytical limit of detection. Viral nucleic acid may persist in vivo, independent of virus viability. Detection of analyte target(s) does not imply that the corresponding virus(es) are infectious or are the causative agents for clinical symptoms.Recent patient exposure to FluMist or other live attenuated influenza vaccines may cause inaccurate positive results. LIPon 04-23-2023 Lipase Level 20 U/L Normal 12-53 [facility] ([place]) Comment on above: Result Comment: No te - New Reference Range in effect 19 Performed By: #### A DIFF, CBC, MG, ANEU, BMP, GFR #### [address] [address] PBNPon 04-23-2023 Natriuretic peptide B (Bld) [Mass/Vol] 1670 pg/mL High 0-900 [facility] ([place]) Comment on above: Result Comment: NT-p roBNP results of less than 300 pg/mL effectively rules out acute congestive heart failure with 99% negative predictive value. Performed By: #### A DIFF, CBC, MG, ANEU, BMP, GFR #### [address] [address] TROPHSon 04-23-2023 Troponin I High Sensitivity 10.00 ng/L Normal 0.00-54.00 [facility] ([place]) Comment on above: Performed By: #### T ROPHS #### [address] [address] UAon 04-23-2023 Color (U) Yellow Normal [facility] ([place]) Comment on above: Performed By: #### M G, GFR, BMP #### [address] [address] Glucose (U) [Mass/Vol] Negative Normal Negative [facility] ([place]) Comment on above: Performed By: #### M G, GFR, BMP #### [address] [address] Ketones Ql (U) Negative Normal Neg-Trace [facility] ([place]) Comment on above: Performed By: #### M G, GFR, BMP #### [place] [address] UA Appear Clear Normal Clear [facility] ([place]) Comment on above: Performed By: #### Scott G, GFR, BMP #### [address] [address] UA Blood Negative Normal Neg-Trace [facility] ([place]) Comment on above: Performed By: #### Scott G, GFR, BMP #### [place] [address] UA Leuk Est Negative Normal Negative [facility] ([place]) Comment on above: Performed By: #### Scott G, GFR, BMP #### [place] [address] UA Nitrite Negative Normal Negative [facility] ([place]) Comment on above: Performed By: #### Scott G, GFR, BMP #### [place] [address] UA pH 5.0 Normal 5.0 - 8.0 [facility] ([place]) Comment on above: Performed By: #### Scott G, GFR, BMP #### [place] [address] UA Protein 30 mg/dL Normal Negative [facility] ([place]) Comment on above: Performed By: #### Scott G, GFR, BMP #### [place] [address] UA Spec Grav 1.020 Normal 1.006-1.02 9 [facility] ([place]) Comment on above: Performed By: #### Scott G, GFR, BMP #### [place] [address] UA Specimen Type Clean Catch Normal [facility] ([place]) Comment on above: Performed By: #### Scott G, GFR, BMP #### [facility] [address] [place] [address] UA Urobilinogen 1.0 E.U./dL Normal 0.2-1.0 [facility] ([place]) Comment on above: Performed By: #### M G, GFR, BMP #### [facility] [address] [place] [address] Urobilinogen (U) [Mass/Vol] Negative Normal Neg-Trace [facility] ([place]) Comment on above: Performed By: #### M G, GFR, BMP #### [place] [address] [place] [address] XR CHEST 1 VIEWon 04-23-2023 XR CHEST 1 VIEW ORIGINAL EXAMINATION: ONE XRAY VIEW OF THE CHEST 04/23/2023 7:28 am COMPARISON: Chest x-ray on 04/08/2023 HISTORY: ORDERING SYSTEM PROVIDED HISTORY: Reason for Exam: cough FINDINGS: Patient has had sternotomy. The most superior sternal wire suture is fractured but appears unchanged. Moderate cardiomegaly stable. Mild pulmonary vascular congestion is increased compared with previous chest x-ray. There is mild atelectasis at the lung bases. No large pleural effusion is present. There is no pneumothorax visible. IMPRESSION: Mild congestive heart failure. Mild bibasilar atelectasis. Interpreted by: Sumit Carrasco MD Preliminary Report By: Sumit Carrasco MD Electronically signed By Sumit Carrasco MD Dictated Date: 04/23/2023 7:36:47 AM Prelim Date: 04/23/2023 7:38:17 AM Sign Date: 04/23/2023 7:38:17 AM Ordering Provider: LILY JEFFERSON [facility] ([place]) XR ENTERIC TUBE PLACEMENTon 04-23-2023 XR ENTERIC TUBE PLACEMENT ORIGINAL EXAMINATION: ONE SUPINE XRAY VIEW(S) OF THE ABDOMEN04/23/2023 6:59 pm COMPARISON: Same day abdominal radiograph HISTORY: ORDERING SYSTEM PROVIDED HISTORY: Reason for Exam: NG placement FINDINGS/IMPRESSION: Enteric tube courses through the expected location the gastroesophageal junction, with distal tip crossing midline, which is likely within the distal stomach, and side port appears to be within the mid to distal gastric body. There are multiple distended small bowel loops. ATTENDING ADDENDUM: AIR OUTLINES A RIGHT LOWER QUADRANT DILATED LOOP OF SMALL BOWEL MEASURING UP TO 4.5 CM IN DIAMETER. THIS COULD REPRESENT INTERVALLY DEVELOPED PNEUMOPERITONEUM, SMALL BOWEL PNEUMATOSIS VERSUS ARTIFACT. RECOMMEND CLINICAL CORRELATION AND CONSIDER REPEAT CT ABDOMEN/PELVIS NEEDED. AGREE THAT ENTERIC TUBE TIP PROJECTS OVER THE STOMACH. Interpreted by: Americo Ennis Preliminary Report By: Marshal Alvarenga Electronically signed By Americo Ennis Dictated Date: 04/23/2023 7:27:49 PM Prelim Date: 04/23/2023 7:30:25 PM Sign Date: 04/23/2023 7:50:33 PM Ordering Provider: ALYSON WARREN [facility] ([place]) XR ENTERIC TUBE PLACEMENT ORIGINAL EXAMINATION: ONE SUPINE XRAY VIEW(S) OF THE ABDOMEN04/23/2023 4:32 pm COMPARISON: 04/23/2023 HISTORY: ORDERING SYSTEM PROVIDED HISTORY: Reason for Exam: NG placement FINDINGS: Markedly limited evaluation due to body habitus but the there is no definite identification of an appropriately positioned enteric tube. However, seen in the midline at the image are multiple lines. Prior median sternotomy. Similar-appearing CHF findings. There are additional lines overlying the abdomen which are presumably external to the patient. IMPRESSION: Markedly limited evaluation with no definite identification of an appropriately positioned enteric tube. There are multiple lines overlying the midline and could reflect coiling of the enteric tube within the esophagus. Replacement and repeat radiograph recommended. I have reviewed the resident's preliminary report and agree with findings and impression. Interpreted by: Americo Ennis Preliminary Report By: Marshal Alvarenga Electronically signed By Americo Ennis Dictated Date: 04/23/2023 5:54:07 PM Prelim Date: 04/23/2023 6:03:00 PM Sign Date: 04/23/2023 6:05:14 PM Ordering Provider: ALYSON WARREN [facility] ([place]) LABORATORYOrdered By: Sadia Granados on 04-22-2023 Blood Glucose Testing Reason Routine (04/22/23 8:59 PM) [employer] Work Phone: Glucose [Mass/Vol] 265 mg/dL High 82 - 115 mg/dL [employer] Work Phone: Blood Glucose Testing Reason Routine (04/22/23 4:57 PM) [employer] Work Phone: Glucose [Mass/Vol] 235 mg/dL High 82 - 115 mg/dL [facility] Work Phone: LABORATORYOrdered By: Jennifer helms on 04-22-2023 Blood Glucose Testing Reason Routine (04/22/23 12:04 PM) [email or web address] Work Phone: Glucose [Mass/Vol] 247 mg/dL High 82 - 115 mg/dL [facility] Work Phone: CVFLURVon 04-21-2023 FLU A PCR Negative Normal Negative [facility] ([place]) Comment on above: Result Comment: [place] [id number] Performed By: #### P BNP #### [place] [address] FLU B PCR Negative Normal Negative [facility] ([place]) Comment on above: Result Comment: Note s [id number] Performed By: #### P BNP #### [place] [id number] RSV PCR Negative Normal Negative [facility] ([place]) Comment on above: Result Comment: Note s [id number] Performed By: #### P BNP #### [place] [address] SARS-CoV-2 (COVID-19) RNA SARAH+probe Ql (Unsp spec) Negative Normal Negative [facility] ([place]) Comment on above: Result Comment: Note s [id number] This test has been authorized by FDA under an EUA for use by authorized laboratories and has not been FDA cleared or approved. Results from the Xpert Xpress SARS-CoV-2/Flu/RSV or Xpert Xpress SARS-CoV-2 only test should be correlated with the clinical history, epidemiological data, and other data available to the clinician evaluating the patient. Performance of the Xpert Xpress SARS-CoV-2/Flu/RSV or Xpert Xpress SARS-CoV-2 only test has only been established in nasopharyngeal swab specimens. Erroneous test results might occur from improper specimen collection; failure to follow the recommended sample collection, handling, and storage procedures; technical error; or sample mix-up.False negative results may occur if virus is present at levels below the analytical limit of detection. Viral nucleic acid may persist in vivo, independent of virus viability. Detection of analyte target(s) does not imply that the corresponding virus(es) are infectious or are the causative agents for clinical symptoms.Recent patient exposure to FluMist or other live attenuated influenza vaccines may cause inaccurate positive results. Performed By: #### P BNP #### [facility] [address] [place] [address] LABORATORYOrdered By: Fide Parker on 04-21-2023 FLUAV RNA SARAH+probe Ql (Resp) Negative 10 (04/21/23 11:14 AM) Normal Negative AH Auto Viro/Sero SS Comment on above: [place]: [place] [id number] FLUBV RNA SARAH+probe Ql (Resp) Negative 11 (04/21/23 11:14 AM) Normal Negative AH Auto Viro/Sero SS Comment on above: Result Comment: [place] s [id number] RSV PCR Negative 12 (04/21/23 11:14 AM) Normal Negative AH Auto Viro/Sero SS Comment on above: Result Comment: [place] s [id number] SARS-CoV-2 (COVID-19) RNA SARAH+probe Ql (Resp) Negative 8, 9 (04/21/23 11:14 AM) Normal Negative AH Auto Viro/Sero SS Comment on above: Result Comment: [place] s [id number] Interpretive Data: T his test has been authorized by FDA under an EUA for use by authorized laboratories and has not been FDA cleared or approved. Results from the Xpert Xpress SARS-CoV-2/Flu/RSV or Xpert Xpress SARS-CoV-2 only test should be correlated with the clinical history, epidemiological data, and other data available to the clinician evaluating the patient. Performance of the Xpert Xpress SARS-CoV-2/Flu/RSV or Xpert Xpress SARS-CoV-2 only test has only been established in nasopharyngeal swab specimens. Erroneous test results might occur from improper specimen collection; failure to follow the recommended sample collection, handling, and storage procedures; technical error; or sample mix-up.False negative results may occur if virus is present at levels below the analytical limit of detection. Viral nucleic acid may persist in vivo, independent of virus viability. Detection of analyte target(s) does not imply that the corresponding virus(es) are infectious or are the causative agents for clinical symptoms.Recent patient exposure to FluMist or other live attenuated influenza vaccines may cause inaccurate positive results. .Auto Diffon 04-20-2023 Basophil, Absolute 0.0 10 3/mcL Normal 0.0-0.3 [facility] ([place]) Comment on above: Performed By: #### A DIFF, CBC, MG, ANEU, BMP, GFR #### [address] [address] Basophils/100 WBC (Bld) 0.5 % Normal 0.0-2.5 [facility] ([place]) Comment on above: Performed By: #### A DIFF, CBC, MG, ANEU, BMP, GFR #### [address] [address] Eosinophil, Absolute 0.1 10 3/mcL Normal 0.0-0.7 [facility] ([place]) Comment on above: Performed By: #### A DIFF, CBC, MG, ANEU, BMP, GFR #### [address] [address] Eosinophils/100 WBC (Bld) 0.9 % Normal 0.0-6.0 [facility] ([place]) Comment on above: Performed By: #### A DIFF, CBC, MG, ANEU, BMP, GFR #### [address] [address] Lymphocyte, Absolute 1.4 10 3/mcL Normal 0.9-4.3 [facility] ([place]) Comment on above: Performed By: #### A DIFF, CBC, MG, ANEU, BMP, GFR #### [address] [address] Lymphocytes/100 WBC (Bld) 22.0 % Normal 20.0-40.0 [facility] ([place]) Comment on above: Performed By: #### A DIFF, CBC, MG, ANEU, BMP, GFR #### [address] [address] Monocyte, Absolute 0.7 10 3/mcL Normal 0.1-1.4 [facility] ([place]) Comment on above: Performed By: #### A DIFF, CBC, MG, ANEU, BMP, GFR #### [address] [address] Monocytes/100 WBC (Bld) 10.1 % Normal 2.0-13.0 [facility] ([place]) Comment on above: Performed By: #### A DIFF, CBC, MG, ANEU, BMP, GFR #### [address] [address] Neutrophils/100 WBC (Bld) 66.5 % Normal 50.0-75.0 [facility] ([place]) Comment on above: Performed By: #### A DIFF, CBC, MG, ANEU, BMP, GFR #### [address] [address] .GFRon 04-20-2023 GFR Non- >60 Normal [facility] ([place]) Comment on above: Result Comment: GFR Population mean for , Non- Americans Ages 20-29 = 116 mL/min/1.73 sq.m. Ages 30-39 = 107 mL/min/1.73 sq.m. Ages 40-49 = 99 mL/min/1.73 sq.m. Ages 50-59 = 93 mL/min/1.73 sq.m. Ages 60-69 = 85 mL/min/1.73 sq.m. Ages 70+ = 75 mL/min/1.73 sq.m. Chronic Kidney Disease: Less than 60 mL/min/1.73 square meters End Stage Renal Disease: Less than 15 mL/min/1.73 square meters Performed By: #### A DIFF, CBC, MG, ANEU, BMP, GFR #### [address] [address] GFR >60 Normal [facility] ([place]) Comment on above: Result Comment: GFR Population mean for , Non- Americans Ages 20-29 = 116 mL/min/1.73 sq.m. Ages 30-39 = 107 mL/min/1.73 sq.m. Ages 40-49 = 99 mL/min/1.73 sq.m. Ages 50-59 = 93 mL/min/1.73 sq.m. Ages 60-69 = 85 mL/min/1.73 sq.m. Ages 70+ = 75 mL/min/1.73 sq.m. Chronic Kidney Disease: Less than 60 mL/min/1.73 square meters End Stage Renal Disease: Less than 15 mL/min/1.73 square meters Performed By: #### A DIFF, CBC, MG, ANEU, BMP, GFR #### [place] [address] .NEUABSon 04-20-2023 Neutrophil, Absolute 4.3 10 3/mcL Normal 2.3-8.1 [facility] [facility] ([place] Comment on above: Performed By: #### A DIFF, CBC, MG, ANEU, BMP, GFR #### [place] [address] CBCon 04-20-2023 Erythrocyte distribution width (RBC) [Ratio] 14.5 % Normal 11.5-15.5 [facility] ([place]) Comment on above: Performed By: #### A DIFF, CBC, MG, ANEU, BMP, GFR #### [place] [address] Hematocrit (Bld) [Volume fraction] 37.8 % Low 40.0-52.0 [facility] ([place]) Comment on above: Performed By: #### A DIFF, CBC, MG, ANEU, BMP, GFR #### [place] [address] Hgb 12.7 G/dL Low 13.0-17.5 [facility] ([place]) Comment on above: Performed By: #### A DIFF, CBC, MG, ANEU, BMP, GFR #### [place] [address] MCH (RBC) [Entitic mass] 30.5 pg Normal 27.0-33.0 [facility] ([place]) Comment on above: Performed By: #### A DIFF, CBC, MG, ANEU, BMP, GFR #### [place] [address] MCHC 33.6 G/dL Normal 32.0-36.0 [facility] ([place]) Comment on above: Performed By: #### A DIFF, CBC, MG, ANEU, BMP, GFR #### [place] [address] MCV (RBC) [Entitic vol] 90.7 fL Normal 81.0-100.0 [facility] ([place]) Comment on above: Performed By: #### A DIFF, CBC, MG, ANEU, BMP, GFR #### [place] [address] Platelet 198 10 3/mcL Normal 150-450 [facility] ([place]) Comment on above: Performed By: #### A DIFF, CBC, MG, ANEU, BMP, GFR #### [place] [address] Platelet mean volume (Bld) [Entitic vol] 10.5 fL Normal 6.4-10.5 [facility] ([place]) Comment on above: Performed By: #### A DIFF, CBC, MG, ANEU, BMP, GFR #### [place] [address] RBC 4.17 10 6/mcL Low 4.50-6.00 [facility] ([place]) Comment on above: Performed By: #### A DIFF, CBC, MG, ANEU, BMP, GFR #### [place] [address] WBC 6.5 10 3/mcL Normal 4.5-10.8 [facility] ([place]) Comment on above: Performed By: #### A DIFF, CBC, MG, ANEU, BMP, GFR #### [place] [address] CMPon 04-20-2023 Albumin Level 3.0 G/dL Low 3.2-4.8 [facility] ([place]) Comment on above: Performed By: #### A DIFF, CBC, MG, ANEU, BMP, GFR #### [place] [address] Albumin/Globulin [Mass ratio] 0.9 {ratio} Normal 0.9-1.6 [facility] ([place]) Comment on above: Performed By: #### A DIFF, CBC, MG, ANEU, BMP, GFR #### [place] [address] ALP [Catalytic activity/Vol] 114 U/L Normal 38-126 [facility] ([place]) Comment on above: Performed By: #### A DIFF, CBC, MG, ANEU, BMP, GFR #### [address] [address] ALT [Catalytic activity/Vol] 16 U/L Normal 12-55 [facility] ([place]) Comment on above: Performed By: #### A DIFF, CBC, MG, ANEU, BMP, GFR #### [address] [address] AST [Catalytic activity/Vol] 16 U/L Normal 8-34 [facility] ([place]) Comment on above: Performed By: #### A DIFF, CBC, MG, ANEU, BMP, GFR #### [address] [address] Bili Total 0.40 mg/dL Normal 0.20-1.20 [facility] ([place]) Comment on above: Result Comment: Use of this assay is not recommended for patients undergoing treatment with eltrombopag due to the potential for falsely elevated results. Performed By: #### A DIFF, CBC, MG, ANEU, BMP, GFR #### [address] [address] BUN/Creatinine Ratio 24.2 ratio High 10.0-22.0 [facility] ([place]) Comment on above: Performed By: #### A DIFF, CBC, MG, ANEU, BMP, GFR #### [address] [address] Calcium [Mass/Vol] 9.4 mg/dL Normal 8.7-10.4 [facility] ([place]) Comment on above: Performed By: #### A DIFF, CBC, MG, ANEU, BMP, GFR #### [address] [address] Chloride [Moles/Vol] 104 mmol/L Normal 98-110 [facility] ([place]) Comment on above: Performed By: #### A DIFF, CBC, MG, ANEU, BMP, GFR #### [address] [address] CO2 [Moles/Vol] 31 mmol/L Normal 22-32 [facility] ([place]) Comment on above: Performed By: #### A DIFF, CBC, MG, ANEU, BMP, GFR #### [address] [address] Creatinine [Mass/Vol] 0.95 mg/dL Normal 0.60-1.40 [facility] ([place]) Comment on above: Performed By: #### A DIFF, CBC, MG, ANEU, BMP, GFR #### [address] [address] Electrolyte Balance 2.0 mEq/L Low 4.0-15.0 [facility] ([place]) Comment on above: Performed By: #### A DIFF, CBC, MG, ANEU, BMP, GFR #### [address] [address] Globulin 3.4 G/dL Normal 1.5-3.8 [facility] ([place]) Comment on above: Performed By: #### A DIFF, CBC, MG, ANEU, BMP, GFR #### [place] [id number] Glucose [Mass/Vol] 195 mg/dL High 82-115 [facility] ([place]) Comment on above: Performed By: #### A DIFF, CBC, MG, ANEU, BMP, GFR #### [address] [address] Potassium [Moles/Vol] 4.8 mmol/L Normal 3.5-5.0 [facility] ([place]) Comment on above: Performed By: #### A DIFF, CBC, MG, ANEU, BMP, GFR #### [address] [address] Sodium [Moles/Vol] 137 mmol/L Normal 136-145 [facility] ([place]) Comment on above: Performed By: #### A DIFF, CBC, MG, ANEU, BMP, GFR #### [address] [address] Total Protein 6.4 G/dL Normal 5.7-8.2 [facility] ([place]) Comment on above: Result Comment: No te - New Reference Range in effect 19 Performed By: #### A DIFF, CBC, MG, ANEU, BMP, GFR #### [address] [address] Urea nitrogen [Mass/Vol] 23.0 mg/dL High 8.0-22.0 [facility] ([place]) Comment on above: Performed By: #### A DIFF, CBC, MG, ANEU, BMP, GFR #### [place] [id number] [place] [id number] LABORATORYOrdered By: SYSTEM SYSTEM on 04-20-2023 Albumin BCP dye [Mass/Vol] 3.0 G/dL Low 3.2 - 4.8 G/dL ADM SS Albumin/Globulin [Mass ratio] 0.9 {ratio} Normal 0.9 - 1.6 ratio ADM SS ALP [Catalytic activity/Vol] 114 U/L Normal 38 - 126 U/L ADM SS ALT No additional P-5'-P [Catalytic activity/Vol] 16 U/L Normal 12 - 55 U/L ADM SS AST [Catalytic activity/Vol] 16 U/L Normal 8 - 34 U/L ADM SS Basophils (Bld) [#/Vol] 0.0 103/mcL Normal 0.0 - 0.3 10^3/mcL Workflow SS Basophils/100 WBC (Bld) 0.5 % Normal 0.0 - 2.5 % Workflow SS Bilirubin [Mass/Vol] 0.40 mg/dL Normal 0.20 - 1.20 mg/dL ADM SS Comment on above: Interpretive Data: U se of this assay is not recommended for patients undergoing treatment with eltrombopag due to the potential for falsely elevated results. Calcium [Mass/Vol] 9.4 mg/dL Normal 8.7 - 10. 4 mg/dL ADM SS Chloride [Moles/Vol] 104 mmol/L Normal 98 - 11 0 mEq/L ADM SS CO2 [Moles/Vol] 31 mmol/L Normal 22 - 32 mEq/L ADM SS Creatinine [Mass/Vol] 0.95 mg/dL Normal 0.60 - 1.40 mg/dL ADM SS Electrolyte Balance 2.0 mEq/L Low 4.0 - 15 .0 mEq/L ADM SS Eosinophils (Bld) [#/Vol] 0.1 103/mcL Normal 0.0 - 0.7 10^3/mcL Workflow SS Eosinophils/100 WBC (Bld) 0.9 % Normal 0.0 - 6.0 % Workflow SS Erythrocyte distribution width (RBC) [Ratio] 14.5 % Normal 11.5 - 15.5 % Workflow SS GFR/1.73 sq M.predicted among blacks MDRD (S/P/Bld) [Vol rate/Area] ml/min/1.73sqm Invalid Interpretation Code Chemistry S Comment on above: Interpretive Data: GFR Population mean for , Non- Americans Ages 20-29 = 116 mL/min/1.73 sq.m. Ages 30-39 = 107 mL/min/1.73 sq.m. Ages 40-49 = 99 mL/min/1.73 sq.m. Ages 50-59 = 93 mL/min/1.73 sq.m. Ages 60-69 = 85 mL/min/1.73 sq.m. Ages 70+ = 75 mL/min/1.73 sq.m. Chronic Kidney Disease: Less than 60 mL/min/1.73 square meters End Stage Renal Disease: Less than 15 mL/min/1.73 square meters GFR/1.73 sq M.predicted among non-blacks MDRD (S/P/Bld) [Vol rate/Area] ml/min/1.73sqm Invalid Interpretation Code [place] Chemistry S Comment on above: Interpretive Data: GFR Population mean for , Non- Americans Ages 20-29 = 116 mL/min/1.73 sq.m. Ages 30-39 = 107 mL/min/1.73 sq.m. Ages 40-49 = 99 mL/min/1.73 sq.m. Ages 50-59 = 93 mL/min/1.73 sq.m. Ages 60-69 = 85 mL/min/1.73 sq.m. Ages 70+ = 75 mL/min/1.73 sq.m. Chronic Kidney Disease: Less than 60 mL/min/1.73 square meters End Stage Renal Disease: Less than 15 mL/min/1.73 square meters Globulin 3.4 G/dL Normal 1.5 - 3.8 G/dL ADM SS Glucose [Mass/Vol] 195 mg/dL High 82 - 115 mg/dL ADM SS Hematocrit (Bld) [Volume fraction] 37.8 % Low 40.0 - 52.0 % AH Workflow SS Hemoglobin (Bld) [Mass/Vol] 12.7 G/dL Low 13.0 - 17.5 G/dL AH Workflow SS Lymphocytes (Bld) [#/Vol] 1.4 103/mcL Normal 0.9 - 4.3 10^3/mcL AH Workflow SS Lymphocytes/100 WBC (Bld) 22.0 % Normal 20.0 - 40.0 % AH Workflow SS MCH (RBC) [Entitic mass] 30.5 pg Normal 27.0 - 33.0 pg AH Workflow SS MCHC 33.6 G/dL Normal 32.0 - 36.0 G/dL AH Workflow SS MCV (RBC) [Entitic vol] 90.7 fL Normal 81.0 - 100.0 fL AH Workflow SS Monocytes (Bld) [#/Vol] 0.7 103/mcL Normal 0.1 - 1.4 10^3/mcL AH Workflow SS Monocytes/100 WBC (Bld) 10.1 % Normal 2.0 - 13.0 % AH Workflow SS Neutrophils (Bld) [#/Vol] 4.3 103/mcL Normal 2.3 - 8.1 10^3/mcL AH Workflow SS Neutrophils/100 WBC (Bld) 66.5 % Normal 50.0 - 75.0 % AH Workflow SS Platelet mean volume (Bld) [Entitic vol] 10.5 fL Normal 6.4 - 10.5 fL AH Workflow SS Platelets (Bld) [#/Vol] 198 103/mcL Normal 150 - 450 10^3/mcL AH Workflow SS Potassium [Moles/Vol] 4.8 mmol/L Normal 3.5 - 5.0 mEq/L AH ADM SS Protein [Mass/Vol] 6.4 G/dL Normal 5.7 - 8.2 G/dL AH ADM SS Comment on above: Interpretive Data: * *Note - New Reference Range in effect 19 RBC (Bld) [#/Vol] 4.17 106/mcL Low 4.50 - 6.00 10^6/mcL AH Workflow SS Sodium [Moles/Vol] 137 mmol/L Normal 136 - 145 mEq/L AH ADM SS Urea nitrogen [Mass/Vol] 23.0 mg/dL High 8.0 - 22.0 mg/dL AH ADM SS Urea nitrogen/Creatinine [Mass ratio] 24.2 ratio High 10.0 - 22.0 ratio AH ADM SS WBC (Bld) [#/Vol] 6.5 103/mcL Normal 4.5 - 10.8 10^3/mcL AH Workflow SS .GFRon 04-17-2023 GFR >60 Normal [facility] ([place]) Comment on above: Result Comment: GFR Population mean for , Non- Americans Ages 20-29 = 116 mL/min/1.73 sq.m. Ages 30-39 = 107 mL/min/1.73 sq.m. Ages 40-49 = 99 mL/min/1.73 sq.m. Ages 50-59 = 93 mL/min/1.73 sq.m. Ages 60-69 = 85 mL/min/1.73 sq.m. Ages 70+ = 75 mL/min/1.73 sq.m. Chronic Kidney Disease: Less than 60 mL/min/1.73 square meters End Stage Renal Disease: Less than 15 mL/min/1.73 square meters Performed By: #### Scott Lucero, GFR, BMP #### [place] [address] GFR Non- >60 Normal [facility] ([place]) Comment on above: Result Comment: GFR Population mean for , Non- Americans Ages 20-29 = 116 mL/min/1.73 sq.m. Ages 30-39 = 107 mL/min/1.73 sq.m. Ages 40-49 = 99 mL/min/1.73 sq.m. Ages 50-59 = 93 mL/min/1.73 sq.m. Ages 60-69 = 85 mL/min/1.73 sq.m. Ages 70+ = 75 mL/min/1.73 sq.m. Chronic Kidney Disease: Less than 60 mL/min/1.73 square meters End Stage Renal Disease: Less than 15 mL/min/1.73 square meters Performed By: ###Karol Lucero, GFR, BMP #### [address] [address] CMPon 04-17-2023 Albumin Level 3.0 G/dL Low 3.2-4.8 [facility] ([place]) Comment on above: Performed By: ###Karol Lucero, GFR, BMP #### [address] [address] Albumin/Globulin [Mass ratio] 1.0 {ratio} Normal 0.9-1.6 [facility] ([place]) Comment on above: Performed By: #### Scott Lucero, GFR, BMP #### [address] [address] ALP [Catalytic activity/Vol] 107 U/L Normal 38-126 [facility] ([place]) Comment on above: Performed By: #### M Nic, GFR, BMP #### [address] [address] ALT [Catalytic activity/Vol] 18 U/L Normal 12-55 [facility] ([place]) Comment on above: Performed By: #### Scott Lucero, GFR, BMP #### [address] [address] AST [Catalytic activity/Vol] 16 U/L Normal 8-34 [facility] ([place]) Comment on above: Performed By: #### Scott Lucero, GFR, BMP #### [address] [address] Bili Total 0.60 mg/dL Normal 0.20-1.20 [facility] ([place]) Comment on above: Result Comment: Use of this assay is not recommended for patients undergoing treatment with eltrombopag due to the potential for falsely elevated results. Performed By: #### Scott Lucero, GFR, BMP #### [place] [id number] BUN/Creatinine Ratio 25.6 ratio High 10.0-22.0 [facility] ([place]) Comment on above: Performed By: #### M Nic, GFR, BMP #### [address] [address] Calcium [Mass/Vol] 9.0 mg/dL Normal 8.7-10.4 [facility] ([place]) Comment on above: Performed By: #### M Nic, GFR, BMP #### [address] [address] Chloride [Moles/Vol] 104 mmol/L Normal 98-110 [facility] ([place]) Comment on above: Performed By: #### M G, GFR, BMP #### [address] [address] CO2 [Moles/Vol] 30 mmol/L Normal 22-32 [facility] ([place]) Comment on above: Performed By: #### M G, GFR, BMP #### [address] [address] Creatinine [Mass/Vol] 0.90 mg/dL Normal 0.60-1.40 [facility] ([place]) Comment on above: Performed By: #### M G, GFR, BMP #### [address] [address] Electrolyte Balance 6.0 mEq/L Normal 4.0-15.0 [facility] ([place]) Comment on above: Performed By: #### M G, GFR, BMP #### [address] [address] Globulin 3.1 G/dL Normal 1.5-3.8 [facility] ([place]) Comment on above: Performed By: #### M G, GFR, BMP #### [address] [address] Glucose [Mass/Vol] 230 mg/dL High 82-115 [facility] ([place]) Comment on above: Performed By: #### M G, GFR, BMP #### [address] [address] Potassium [Moles/Vol] 4.7 mmol/L Normal 3.5-5.0 [facility] ([place]) Comment on above: Performed By: #### M G, GFR, BMP #### [address] [address] Sodium [Moles/Vol] 140 mmol/L Normal 136-145 [facility] ([place]) Comment on above: Performed By: #### M G, GFR, BMP #### [address] [address] Total Protein 6.1 G/dL Normal 5.7-8.2 [facility] ([place]) Comment on above: Result Comment: No te - New Reference Range in effect 19 Performed By: #### M G, GFR, BMP #### [address] [address] Urea nitrogen [Mass/Vol] 23.0 mg/dL High 8.0-22.0 [facility] ([place]) Comment on above: Performed By: #### M G, GFR, BMP #### [address] [address] LABORATORYOrdered By: SYSTEM SYSTEM on 04-17-2023 Albumin BCP dye [Mass/Vol] 3.0 G/dL Low 3.2 - 4.8 G/dL ADM SS Albumin/Globulin [Mass ratio] 1.0 {ratio} Normal 0.9 - 1.6 ratio ADM SS ALP [Catalytic activity/Vol] 107 U/L Normal 38 - 126 U/L ADM SS ALT No additional P-5'-P [Catalytic activity/Vol] 18 U/L Normal 12 - 55 U/L ADM SS AST [Catalytic activity/Vol] 16 U/L Normal 8 - 34 U/L ADM SS Bilirubin [Mass/Vol] 0.60 mg/dL Normal 0.20 - 1.20 mg/dL ADM SS Comment on above: Interpretive Data: U se of this assay is not recommended for patients undergoing treatment with eltrombopag due to the potential for falsely elevated results. Calcium [Mass/Vol] 9.0 mg/dL Normal 8.7 - 10. 4 mg/dL ADM SS Chloride [Moles/Vol] 104 mmol/L Normal 98 - 11 0 mEq/L ADM SS CO2 [Moles/Vol] 30 mmol/L Normal 22 - 32 mEq/L ADM SS Creatinine [Mass/Vol] 0.90 mg/dL Normal 0.60 - 1.40 mg/dL ADM SS Electrolyte Balance 6.0 mEq/L Normal 4.0 - 15 .0 mEq/L ADM SS GFR/1.73 sq M.predicted among blacks MDRD (S/P/Bld) [Vol rate/Area] ml/min/1.73sqm Invalid Interpretation Code Chemistry S Comment on above: Interpretive Data: GFR Population mean for , Non- Americans Ages 20-29 = 116 mL/min/1.73 sq.m. Ages 30-39 = 107 mL/min/1.73 sq.m. Ages 40-49 = 99 mL/min/1.73 sq.m. Ages 50-59 = 93 mL/min/1.73 sq.m. Ages 60-69 = 85 mL/min/1.73 sq.m. Ages 70+ = 75 mL/min/1.73 sq.m. Chronic Kidney Disease: Less than 60 mL/min/1.73 square meters End Stage Renal Disease: Less than 15 mL/min/1.73 square meters GFR/1.73 sq M.predicted among non-blacks MDRD (S/P/Bld) [Vol rate/Area] ml/min/1.73sqm Invalid Interpretation Code Chemistry S Comment on above: Interpretive Data: GFR Population mean for , Non- Americans Ages 20-29 = 116 mL/min/1.73 sq.m. Ages 30-39 = 107 mL/min/1.73 sq.m. Ages 40-49 = 99 mL/min/1.73 sq.m. Ages 50-59 = 93 mL/min/1.73 sq.m. Ages 60-69 = 85 mL/min/1.73 sq.m. Ages 70+ = 75 mL/min/1.73 sq.m. Chronic Kidney Disease: Less than 60 mL/min/1.73 square meters End Stage Renal Disease: Less than 15 mL/min/1.73 square meters Globulin 3.1 G/dL Normal 1.5 - 3.8 G/dL ADM SS Glucose [Mass/Vol] 230 mg/dL High 82 - 115 mg/dL ADM SS Potassium [Moles/Vol] 4.7 mmol/L Normal 3.5 - 5.0 mEq/L ADM SS Protein [Mass/Vol] 6.1 G/dL Normal 5.7 - 8.2 G/dL ADM SS Comment on above: Interpretive Data: * *Note - New Reference Range in effect 19 Sodium [Moles/Vol] 140 mmol/L Normal 136 - 145 mEq/L ADM SS Urea nitrogen [Mass/Vol] 23.0 mg/dL High 8.0 - 22.0 mg/dL ADM SS Urea nitrogen/Creatinine [Mass ratio] 25.6 ratio High 10.0 - 22.0 ratio AH ADM SS LABORATORYOrdered By: Magda Guy on 04-15-2023 Glucose [Mass/Vol] 170 mg/dL [employer] Work Phone: Glucose [Mass/Vol] 185 mg/dL [facility] [employer] Work Phone: .Auto Diffon 04-13-2023 Basophil, Absolute 0.0 10 3/mcL Normal 0.0-0.3 [facility] ([place]) Comment on above: Performed By: #### Scott G, GFR, BMP #### [address] [address] Basophils/100 WBC (Bld) 0.7 % Normal 0.0-2.5 [facility] ([place]) Comment on above: Performed By: #### Scott G, GFR, BMP #### [address] [address] Eosinophil, Absolute 0.1 10 3/mcL Normal 0.0-0.7 [facility] ([place]) Comment on above: Performed By: #### Scott G, GFR, BMP #### [address] [address] Eosinophils/100 WBC (Bld) 0.8 % Normal 0.0-6.0 [facility] ([place]) Comment on above: Performed By: #### Scott G, GFR, BMP #### [address] [address] Lymphocyte, Absolute 1.4 10 3/mcL Normal 0.9-4.3 [facility] ([place]) Comment on above: Performed By: #### Scott G, GFR, BMP #### [address] [address] Lymphocytes/100 WBC (Bld) 21.1 % Normal 20.0-40.0 [facility] ([place]) Comment on above: Performed By: #### Scott G, GFR, BMP #### [address] [address] Monocyte, Absolute 0.6 10 3/mcL Normal 0.1-1.4 [facility] ([place]) Comment on above: Performed By: #### M G, GFR, BMP #### [address] [address] Monocytes/100 WBC (Bld) 8.8 % Normal 2.0-13.0 [facility] ([place]) Comment on above: Performed By: #### M G, GFR, BMP #### [address] [address] Neutrophils/100 WBC (Bld) 68.6 % Normal 50.0-75.0 [facility] ([place]) Comment on above: Performed By: #### M G, GFR, BMP #### [address] [address] .GFRon 04-13-2023 GFR >60 Normal [facility] ([place]) Comment on above: Result Comment: GFR Population mean for , Non- Americans Ages 20-29 = 116 mL/min/1.73 sq.m. Ages 30-39 = 107 mL/min/1.73 sq.m. Ages 40-49 = 99 mL/min/1.73 sq.m. Ages 50-59 = 93 mL/min/1.73 sq.m. Ages 60-69 = 85 mL/min/1.73 sq.m. Ages 70+ = 75 mL/min/1.73 sq.m. Chronic Kidney Disease: Less than 60 mL/min/1.73 square meters End Stage Renal Disease: Less than 15 mL/min/1.73 square meters Performed By: #### M G, GFR, BMP #### [address] [address] GFR Non- >60 Normal [facility] ([place]) Comment on above: Result Comment: GFR Population mean for , Non- Americans Ages 20-29 = 116 mL/min/1.73 sq.m. Ages 30-39 = 107 mL/min/1.73 sq.m. Ages 40-49 = 99 mL/min/1.73 sq.m. Ages 50-59 = 93 mL/min/1.73 sq.m. Ages 60-69 = 85 mL/min/1.73 sq.m. Ages 70+ = 75 mL/min/1.73 sq.m. Chronic Kidney Disease: Less than 60 mL/min/1.73 square meters End Stage Renal Disease: Less than 15 mL/min/1.73 square meters Performed By: #### M G, GFR, BMP #### [place] [address] .NEUABSon 04-13-2023 Neutrophil, Absolute 4.6 10 3/mcL Normal 2.3-8.1 [facility] ([place]) Comment on above: Performed By: #### M G, GFR, BMP #### [place] [address] CBCon 04-13-2023 Erythrocyte distribution width (RBC) [Ratio] 14.1 % Normal 11.5-15.5 [facility] ([place]) Comment on above: Performed By: #### Scott Lucero, GFR, BMP #### [place] [address] Hematocrit (Bld) [Volume fraction] 35.4 % Low 40.0-52.0 [facility] ([place]) Comment on above: Performed By: #### M Nic, GFR, BMP #### [place] [address] Hgb 11.8 G/dL Low 13.0-17.5 [facility] ([place]) Comment on above: Performed By: #### M G, GFR, BMP #### [place] [address] MCH (RBC) [Entitic mass] 30.1 pg Normal 27.0-33.0 [facility] ([place]) Comment on above: Performed By: #### M G, GFR, BMP #### [place] [address] MCHC 33.4 G/dL Normal 32.0-36.0 [facility] ([place]) Comment on above: Performed By: #### M G, GFR, BMP #### [place] [address] MCV (RBC) [Entitic vol] 90.1 fL Normal 81.0-100.0 [facility] ([place]) Comment on above: Performed By: #### Scott Lucero, GFR, BMP #### [address] [address] Platelet 184 10 3/mcL Normal 150-450 [facility] ([place]) Comment on above: Performed By: #### Scott Lucero, GFR, BMP #### [address] [address] Platelet mean volume (Bld) [Entitic vol] 11.1 fL High 6.4-10.5 [facility] ([place]) Comment on above: Performed By: #### Scott Lucero, GFR, BMP #### [address] [address] RBC 3.93 10 6/mcL Low 4.50-6.00 [facility] ([place]) Comment on above: Performed By: #### Scott Lucero, GFR, BMP #### [address] [address] WBC 6.7 10 3/mcL Normal 4.5-10.8 [facility] ([place]) Comment on above: Performed By: #### Scott Lucero, GFR, BMP #### [address] [address] CMPon 04-13-2023 Albumin Level 2.9 G/dL Low 3.2-4.8 [facility] ([place]) Comment on above: Performed By: #### Scott Lucero, GFR, BMP #### [address] [address] Albumin/Globulin [Mass ratio] 0.9 {ratio} Normal 0.9-1.6 [facility] ([place]) Comment on above: Performed By: #### Scott Lucero, GFR, BMP #### [address] [address] ALP [Catalytic activity/Vol] 105 U/L Normal 38-126 [facility] ([place]) Comment on above: Performed By: #### Scott Lucero, GFR, BMP #### [address] [address] ALT [Catalytic activity/Vol] 28 U/L Normal 12-55 [facility] ([place]) Comment on above: Performed By: #### Scott Lucero, GFR, BMP #### [address] [address] AST [Catalytic activity/Vol] 20 U/L Normal 8-34 [facility] ([place]) Comment on above: Performed By: #### M G, GFR, BMP #### [address] [address] Bili Total 0.50 mg/dL Normal 0.20-1.20 [facility] ([place]) Comment on above: Result Comment: Use of this assay is not recommended for patients undergoing treatment with eltrombopag due to the potential for falsely elevated results. Performed By: #### M G, GFR, BMP #### [place] [id number] BUN/Creatinine Ratio 26.4 ratio High 10.0-22.0 [facility] ([place]) Comment on above: Performed By: #### Scott Lucero, GFR, BMP #### [address] [address] Calcium [Mass/Vol] 8.9 mg/dL Normal 8.7-10.4 [facility] ([place]) Comment on above: Performed By: #### Scott Lucero, GFR, BMP #### [address] [address] Chloride [Moles/Vol] 107 mmol/L Normal 98-110 [facility] ([place]) Comment on above: Performed By: #### M G, GFR, BMP #### [place] [id number] CO2 [Moles/Vol] 25 mmol/L Normal 22-32 [facility] ([place]) Comment on above: Performed By: #### M G, GFR, BMP #### [address] [address] Creatinine [Mass/Vol] 0.91 mg/dL Normal 0.60-1.40 [facility] ([place]) Comment on above: Performed By: #### Scott G, GFR, BMP #### [place] [id number] Electrolyte Balance 8.0 mEq/L Normal 4.0-15.0 [facility] ([place]) Comment on above: Performed By: #### M G, GFR, BMP #### [address] [address] Globulin 3.1 G/dL Normal 1.5-3.8 [facility] ([place]) Comment on above: Performed By: #### M G, GFR, BMP #### [address] [address] Glucose [Mass/Vol] 190 mg/dL High 82-115 [facility] ([place]) Comment on above: Performed By: #### M Nic, GFR, BMP #### [address] [address] Potassium [Moles/Vol] 4.9 mmol/L Normal 3.5-5.0 [facility] ([place]) Comment on above: Performed By: #### Scott G, GFR, BMP #### [address] [address] Sodium [Moles/Vol] 140 mmol/L Normal 136-145 [facility] ([place]) Comment on above: Performed By: #### Scott Lucero, GFR, BMP #### [address] [address] Total Protein 6.0 G/dL Normal 5.7-8.2 [facility] ([place]) Comment on above: Result Comment: No te - New Reference Range in effect 19 Performed By: #### M G, GFR, BMP #### [address] [address] Urea nitrogen [Mass/Vol] 24.0 mg/dL High 8.0-22.0 [facility] ([place]) Comment on above: Performed By: #### Scott G, GFR, BMP #### [address] [address] LABORATORYOrdered By: SYSTEM SYSTEM on 04-13-2023 Albumin BCP dye [Mass/Vol] 2.9 G/dL Low 3.2 - 4.8 G/dL ADM SS Albumin/Globulin [Mass ratio] 0.9 {ratio} Normal 0.9 - 1.6 ratio AH ADM SS ALP [Catalytic activity/Vol] 105 U/L Normal 38 - 126 U/L ADM SS ALT No additional P-5'-P [Catalytic activity/Vol] 28 U/L Normal 12 - 55 U/L ADM SS AST [Catalytic activity/Vol] 20 U/L Normal 8 - 34 U/L ADM SS Basophils (Bld) [#/Vol] 0.0 103/mcL Normal 0.0 - 0.3 10^3/mcL Workflow SS Basophils/100 WBC (Bld) 0.7 % Normal 0.0 - 2.5 % Workflow SS Bilirubin [Mass/Vol] 0.50 mg/dL Normal 0.20 - 1.20 mg/dL ADM SS Comment on above: Interpretive Data: U se of this assay is not recommended for patients undergoing treatment with eltrombopag due to the potential for falsely elevated results. Calcium [Mass/Vol] 8.9 mg/dL Normal 8.7 - 10. 4 mg/dL ADM SS Chloride [Moles/Vol] 107 mmol/L Normal 98 - 11 0 mEq/L ADM SS CO2 [Moles/Vol] 25 mmol/L Normal 22 - 32 mEq/L ADM SS Creatinine [Mass/Vol] 0.91 mg/dL Normal 0.60 - 1.40 mg/dL ADM SS Electrolyte Balance 8.0 mEq/L Normal 4.0 - 15 .0 mEq/L ADM SS Eosinophils (Bld) [#/Vol] 0.1 103/mcL Normal 0.0 - 0.7 10^3/mcL Workflow SS Eosinophils/100 WBC (Bld) 0.8 % Normal 0.0 - 6.0 % Workflow SS Erythrocyte distribution width (RBC) [Ratio] 14.1 % Normal 11.5 - 15.5 % Workflow SS GFR/1.73 sq M.predicted among blacks MDRD (S/P/Bld) [Vol rate/Area] ml/min/1.73sqm Invalid Interpretation Code Chemistry S Comment on above: Interpretive Data: GFR Population mean for , Non- Americans Ages 20-29 = 116 mL/min/1.73 sq.m. Ages 30-39 = 107 mL/min/1.73 sq.m. Ages 40-49 = 99 mL/min/1.73 sq.m. Ages 50-59 = 93 mL/min/1.73 sq.m. Ages 60-69 = 85 mL/min/1.73 sq.m. Ages 70+ = 75 mL/min/1.73 sq.m. Chronic Kidney Disease: Less than 60 mL/min/1.73 square meters End Stage Renal Disease: Less than 15 mL/min/1.73 square meters GFR/1.73 sq M.predicted among non-blacks MDRD (S/P/Bld) [Vol rate/Area] ml/min/1.73sqm Invalid Interpretation Code Chemistry S Comment on above: Interpretive Data: GFR Population mean for , Non- Americans Ages 20-29 = 116 mL/min/1.73 sq.m. Ages 30-39 = 107 mL/min/1.73 sq.m. Ages 40-49 = 99 mL/min/1.73 sq.m. Ages 50-59 = 93 mL/min/1.73 sq.m. Ages 60-69 = 85 mL/min/1.73 sq.m. Ages 70+ = 75 mL/min/1.73 sq.m. Chronic Kidney Disease: Less than 60 mL/min/1.73 square meters End Stage Renal Disease: Less than 15 mL/min/1.73 square meters Globulin 3.1 G/dL Normal 1.5 - 3.8 G/dL ADM SS Glucose [Mass/Vol] 190 mg/dL High 82 - 115 mg/dL ADM SS Hematocrit (Bld) [Volume fraction] 35.4 % Low 40.0 - 52.0 % Workflow SS Hemoglobin (Bld) [Mass/Vol] 11.8 G/dL Low 13.0 - 17.5 G/dL AH Workflow SS Lymphocytes (Bld) [#/Vol] 1.4 103/mcL Normal 0.9 - 4.3 10^3/mcL Workflow SS Lymphocytes/100 WBC (Bld) 21.1 % Normal 20.0 - 40.0 % Workflow SS MCH (RBC) [Entitic mass] 30.1 pg Normal 27.0 - 33.0 pg Workflow SS MCHC 33.4 G/dL Normal 32.0 - 36.0 G/dL Workflow SS MCV (RBC) [Entitic vol] 90.1 fL Normal 81.0 - 100.0 fL AH Workflow SS Monocytes (Bld) [#/Vol] 0.6 103/mcL Normal 0.1 - 1.4 10^3/mcL AH Workflow SS Monocytes/100 WBC (Bld) 8.8 % Normal 2.0 - 13.0 % AH Workflow SS Neutrophils (Bld) [#/Vol] 4.6 103/mcL Normal 2.3 - 8.1 10^3/mcL AH Workflow SS Neutrophils/100 WBC (Bld) 68.6 % Normal 50.0 - 75.0 % AH Workflow SS Platelet mean volume (Bld) [Entitic vol] 11.1 fL High 6.4 - 10.5 fL AH Workflow SS Platelets (Bld) [#/Vol] 184 103/mcL Normal 150 - 450 10^3/mcL AH Workflow SS Potassium [Moles/Vol] 4.9 mmol/L Normal 3.5 - 5.0 mEq/L AH ADM SS Protein [Mass/Vol] 6.0 G/dL Normal 5.7 - 8.2 G/dL AH ADM SS Comment on above: Interpretive Data: * *Note - New Reference Range in effect 19 RBC (Bld) [#/Vol] 3.93 106/mcL Low 4.50 - 6.00 10^6/mcL AH Workflow SS Sodium [Moles/Vol] 140 mmol/L Normal 136 - 145 mEq/L AH ADM SS Urea nitrogen [Mass/Vol] 24.0 mg/dL High 8.0 - 22.0 mg/dL AH ADM SS Urea nitrogen/Creatinine [Mass ratio] 26.4 ratio High 10.0 - 22.0 ratio AH ADM SS WBC (Bld) [#/Vol] 6.7 103/mcL Normal 4.5 - 10.8 10^3/mcL AH Workflow SS LABORATORYOrdered By: Mark Hernandes on 04-13-2023 Natriuretic peptide.B prohormone N-Terminal [Mass/Vol] 621 pg/mL Normal 0 - 900 pg/mL Auto Chem SS Comment on above: Interpretive Data: N T-proBNP results of less than 300 pg/mL effectively rules out acute congestive heart failure with 99% negative predictive value. PBNPon 04-13-2023 Natriuretic peptide B (Bld) [Mass/Vol] 621 pg/mL Normal 0-900 [facility] ([place]) Comment on above: Result Comment: NT-p roBNP results of less than 300 pg/mL effectively rules out acute congestive heart failure with 99% negative predictive value. Performed By: #### P BNP #### [address] [address] .GFRon 04-11-2023 GFR >60 Normal [facility] ([place]) Comment on above: Result Comment: GFR Population mean for , Non- Americans Ages 20-29 = 116 mL/min/1.73 sq.m. Ages 30-39 = 107 mL/min/1.73 sq.m. Ages 40-49 = 99 mL/min/1.73 sq.m. Ages 50-59 = 93 mL/min/1.73 sq.m. Ages 60-69 = 85 mL/min/1.73 sq.m. Ages 70+ = 75 mL/min/1.73 sq.m. Chronic Kidney Disease: Less than 60 mL/min/1.73 square meters End Stage Renal Disease: Less than 15 mL/min/1.73 square meters Performed By: #### M G, GFR, BMP #### [address] [address] GFR Non- >60 Normal [facility] ([place]) Comment on above: Result Comment: GFR Population mean for , Non- Americans Ages 20-29 = 116 mL/min/1.73 sq.m. Ages 30-39 = 107 mL/min/1.73 sq.m. Ages 40-49 = 99 mL/min/1.73 sq.m. Ages 50-59 = 93 mL/min/1.73 sq.m. Ages 60-69 = 85 mL/min/1.73 sq.m. Ages 70+ = 75 mL/min/1.73 sq.m. Chronic Kidney Disease: Less than 60 mL/min/1.73 square meters End Stage Renal Disease: Less than 15 mL/min/1.73 square meters Performed By: #### M G, GFR, BMP #### [address] [address] CMPon 04-11-2023 Albumin Level 2.8 G/dL Low 3.2-4.8 [facility] ([place]) Comment on above: Order Comment: conta minated with EDTA. Recollect 04/10/2023 17:20:15 EST Performed By: #### Scott Lucero, GFR, BMP #### [address] [address] Albumin/Globulin [Mass ratio] 0.9 {ratio} Normal 0.9-1.6 [facility] ([place]) Comment on above: Order Comment: conta minated with EDTA. Recollect 04/10/2023 17:20:15 EST Performed By: #### Scott Lucero, GFR, BMP #### [address] [address] ALP [Catalytic activity/Vol] 103 U/L Normal 38-126 [facility] ([place]) Comment on above: Order Comment: conta minated with EDTA. Recollect 04/10/2023 17:20:15 EST Performed By: #### Scott Lucero, GFR, BMP #### [address] [address] ALT [Catalytic activity/Vol] 24 U/L Normal 12-55 [facility] ([place] Comment on above: Order Comment: conta minated with EDTA. Recollect 04/10/2023 17:20:15 EST Performed By: #### Scott Lucero, GFR, BMP #### [address] [address] AST [Catalytic activity/Vol] 21 U/L Normal 8-34 [facility] ([place] Comment on above: Order Comment: conta minated with EDTA. Recollect 04/10/2023 17:20:15 EST Performed By: #### Scott Lucero, GFR, BMP #### [address] [address] Bili Total 0.70 mg/dL Normal 0.20-1.20 [facility] ([place] Comment on above: Order Comment: conta minated with EDTA. Recollect 04/10/2023 17:20:15 EST Result Comment: Use of this assay is not recommended for patients undergoing treatment with eltrombopag due to the potential for falsely elevated results. Performed By: #### Scott Lucero, GFR, BMP #### [address] [address] BUN/Creatinine Ratio 28.0 ratio High 10.0-22.0 [facility] ([place] Comment on above: Order Comment: conta minated with EDTA. Recollect 04/10/2023 17:20:15 EST Performed By: #### Scott Lucero, GFR, BMP #### [address] [address] Calcium [Mass/Vol] 8.7 mg/dL Normal 8.7-10.4 [facility] ([place]) Comment on above: Order Comment: conta minated with EDTA. Recollect 04/10/2023 17:20:15 EST Performed By: #### Scott Lucero, GFR, BMP #### [place] [address] Chloride [Moles/Vol] 108 mmol/L Normal 98-110 [facility] ([place] Comment on above: Order Comment: conta minated with EDTA. Recollect 04/10/2023 17:20:15 EST Performed By: #### Scott Lucero, GFR, BMP #### [address] [address] CO2 [Moles/Vol] 26 mmol/L Normal 22-32 [facility] ([place] Comment on above: Order Comment: conta minated with EDTA. Recollect 04/10/2023 17:20:15 EST Performed By: #### Scott Lucero, GFR, BMP #### [place] [id number] Creatinine [Mass/Vol] 0.93 mg/dL Normal 0.60-1.40 [facility] ([place]) Comment on above: Order Comment: conta minated with EDTA. Recollect 04/10/2023 17:20:15 EST Performed By: #### Scott Lucero, GFR, BMP #### [address] [address] Electrolyte Balance 5.0 mEq/L Normal 4.0-15.0 [facility] ([place]) Comment on above: Order Comment: conta minated with EDTA. Recollect 04/10/2023 17:20:15 EST Performed By: #### Scott G, GFR, BMP #### [address] [address] Globulin 3.0 G/dL Normal 1.5-3.8 [facility] ([place] Comment on above: Order Comment: conta minated with EDTA. Recollect 04/10/2023 17:20:15 EST Performed By: #### Scott Lucero, GFR, BMP #### [address] [address] Glucose [Mass/Vol] 187 mg/dL High 82-115 [facility] ([place]) Comment on above: Order Comment: conta minated with EDTA. Recollect 04/10/2023 17:20:15 EST Performed By: #### Scott Lucero, GFR, BMP #### [address] [address] Potassium [Moles/Vol] 4.5 mmol/L Normal 3.5-5.0 [facility] ([place]) Comment on above: Order Comment: conta minated with EDTA. Recollect 04/10/2023 17:20:15 EST Result Comment: Spec imen slightly hemolyzed. Performed By: #### Scott Lucero, GFR, BMP #### [address] [address] Sodium [Moles/Vol] 139 mmol/L Normal 136-145 [facility] ([place]) Comment on above: Order Comment: conta minated with EDTA. Recollect 04/10/2023 17:20:15 EST Performed By: #### Scott G, GFR, BMP #### [address] [address] Total Protein 5.8 G/dL Normal 5.7-8.2 [facility] ([place]) Comment on above: Order Comment: conta minated with EDTA. Recollect 04/10/2023 17:20:15 EST Result Comment: No te - New Reference Range in effect 19 Performed By: #### Scott G, GFR, BMP #### [address] [address] Urea nitrogen [Mass/Vol] 26.0 mg/dL High 8.0-22.0 [facility] ([place] Comment on above: Order Comment: conta minated with EDTA. Recollect 04/10/2023 17:20:15 EST Performed By: #### Scott Lucero GFR, BMP #### [address] [address] .Auto Diffon 04-10-2023 Basophil, Absolute 0.1 10 3/mcL Normal 0.0-0.3 [facility] ([place] Comment on above: Performed By: #### Scott Lucero, GFR, BMP #### [address] [address] Basophils/100 WBC (Bld) 0.8 % Normal 0.0-2.5 [facility] ([place] Comment on above: Performed By: #### Scott Lucero, GFR, BMP #### [address] [address] Eosinophil, Absolute 0.0 10 3/mcL Normal 0.0-0.7 [facility] ([place]) Comment on above: Performed By: #### Scott Lucero, GFR, BMP #### [address] [address] Eosinophils/100 WBC (Bld) 0.4 % Normal 0.0-6.0 [facility] ([place] Comment on above: Performed By: #### Scott Lucero, GFR, BMP #### [address] [address] Lymphocyte, Absolute 1.3 10 3/mcL Normal 0.9-4.3 [facility] ([place] Comment on above: Performed By: #### Scott Lucero, GFR, BMP #### [address] [address] Lymphocytes/100 WBC (Bld) 13.6 % Low 20.0-40.0 [facility] ([place] Comment on above: Performed By: #### Scott Lucero, GFR, BMP #### [address] [address] Monocyte, Absolute 0.9 10 3/mcL Normal 0.1-1.4 [facility] ([place] Comment on above: Performed By: #### Scott Lucero, GFR, BMP #### [address] [address] Monocytes/100 WBC (Bld) 10.0 % Normal 2.0-13.0 [facility] ([place] Comment on above: Performed By: #### M G, GFR, BMP #### [address] [address] Neutrophils/100 WBC (Bld) 75.2 % High 50.0-75.0 [facility] ([place] Comment on above: Performed By: #### M G, GFR, BMP #### [address] [address] .NEUABSon 04-10-2023 Neutrophil, Absolute 7.0 10 3/mcL Normal 2.3-8.1 [facility] ([place]) Comment on above: Performed By: #### M G, GFR, BMP #### [place] [address] CBCon 04-10-2023 Erythrocyte distribution width (RBC) [Ratio] 14.4 % Normal 11.5-15.5 [facility] ([place] Comment on above: Performed By: #### P BNP #### [place] [address] Hematocrit (Bld) [Volume fraction] 36.9 % Low 40.0-52.0 [facility] ([place] Comment on above: Performed By: #### P BNP #### [place] [address] Hgb 12.4 G/dL Low 13.0-17.5 [facility] ([place] Comment on above: Performed By: #### P BNP #### [address] [address] MCH (RBC) [Entitic mass] 30.3 pg Normal 27.0-33.0 [facility] ([place] Comment on above: Performed By: #### P BNP #### [place] [address] MCHC 33.7 G/dL Normal 32.0-36.0 [facility] ([place] Comment on above: Performed By: #### P BNP #### [place] [address] MCV (RBC) [Entitic vol] 89.8 fL Normal 81.0-100.0 [facility] ([place] Comment on above: Performed By: #### P BNP #### [place] [address] Platelet 202 10 3/mcL Normal 150-450 [facility] ([place] Comment on above: Performed By: #### P BNP #### [place] [address] Platelet mean volume (Bld) [Entitic vol] 11.3 fL High 6.4-10.5 [facility] ([place] Comment on above: Performed By: #### P BNP #### [place] [address] RBC 4.10 10 6/mcL Low 4.50-6.00 [facility] ([place] Comment on above: Performed By: #### P BNP #### [place] [address] WBC 9.2 10 3/mcL Normal 4.5-10.8 [facility] ([place] Comment on above: Performed By: #### P BNP #### [place] [address] LABORATORYOrdered By: SYSTEM SYSTEM on 04-10-2023 Basophils (Bld) [#/Vol] 0.1 103/mcL Normal 0.0 - 0.3 10^3/mcL AH Workflow SS Basophils/100 WBC (Bld) 0.8 % Normal 0.0 - 2.5 % AH Workflow SS Eosinophils (Bld) [#/Vol] 0.0 103/mcL Normal 0.0 - 0.7 10^3/mcL AH Workflow SS Eosinophils/100 WBC (Bld) 0.4 % Normal 0.0 - 6.0 % AH Workflow SS Erythrocyte distribution width (RBC) [Ratio] 14.4 % Normal 11.5 - 15.5 % AH Workflow SS Hematocrit (Bld) [Volume fraction] 36.9 % Low 40.0 - 52.0 % AH Workflow SS Hemoglobin (Bld) [Mass/Vol] 12.4 G/dL Low 13.0 - 17.5 G/dL AH Workflow SS Lymphocytes (Bld) [#/Vol] 1.3 103/mcL Normal 0.9 - 4.3 10^3/mcL AH Workflow SS Lymphocytes/100 WBC (Bld) 13.6 % Low 20.0 - 40.0 % AH Workflow SS MCH (RBC) [Entitic mass] 30.3 pg Normal 27.0 - 33.0 pg AH Workflow SS MCHC 33.7 G/dL Normal 32.0 - 36.0 G/dL AH Workflow SS MCV (RBC) [Entitic vol] 89.8 fL Normal 81.0 - 100.0 fL AH Workflow SS Monocytes (Bld) [#/Vol] 0.9 103/mcL Normal 0.1 - 1.4 10^3/mcL AH Workflow SS Monocytes/100 WBC (Bld) 10.0 % Normal 2.0 - 13.0 % AH Workflow SS Neutrophils (Bld) [#/Vol] 7.0 103/mcL Normal 2.3 - 8.1 10^3/mcL AH Workflow SS Neutrophils/100 WBC (Bld) 75.2 % High 50.0 - 75.0 % AH Workflow SS Platelet mean volume (Bld) [Entitic vol] 11.3 fL High 6.4 - 10.5 fL AH Workflow SS Platelets (Bld) [#/Vol] 202 103/mcL Normal 150 - 450 10^3/mcL AH Workflow SS RBC (Bld) [#/Vol] 4.10 106/mcL Low 4.50 - 6.00 10^6/mcL AH Workflow SS WBC (Bld) [#/Vol] 9.2 103/mcL Normal 4.5 - 10.8 10^3/mcL AH Workflow SS .Auto Diffon 04-08-2023 Basophil, Absolute 0.0 10 3/mcL Normal 0.0-0.3 [facility] ([place]) Comment on above: Performed By: #### Scott Lucero GFR, BMP #### [facility] [address] [place] [address] Basophils/100 WBC (Bld) 0.4 % Normal 0.0-2.5 [facility] ([place]) Comment on above: Performed By: ###Karol Lucero GFR, BMP #### [address] [address] Eosinophil, Absolute 0.0 10 3/mcL Normal 0.0-0.7 [facility] ([place]) Comment on above: Performed By: #### Scott Lucero, GFR, BMP #### [address] [address] Eosinophils/100 WBC (Bld) 0.4 % Normal 0.0-6.0 [facility] ([place]) Comment on above: Performed By: #### Scott Lucero, GFR, BMP #### [address] [address] Lymphocyte, Absolute 1.0 10 3/mcL Normal 0.9-4.3 [facility] ([place]) Comment on above: Performed By: #### Scott Lucero, GFR, BMP #### [address] [address] Lymphocytes/100 WBC (Bld) 10.8 % Low 20.0-40.0 [facility] ([place]) Comment on above: Performed By: #### Scott Lucero, GFR, BMP #### [address] [address] Monocyte, Absolute 1.0 10 3/mcL Normal 0.1-1.4 [facility] ([place]) Comment on above: Performed By: #### Scott Lucero, GFR, BMP #### [address] [address] Monocytes/100 WBC (Bld) 10.5 % Normal 2.0-13.0 [facility] ([place]) Comment on above: Performed By: #### Scott Lucero, GFR, BMP #### [address] [address] Neutrophils/100 WBC (Bld) 77.9 % High 50.0-75.0 [facility] ([place]) Comment on above: Performed By: #### Scott Lucero, GFR, BMP #### [address] [address] .GFRon 04-08-2023 GFR >60 Normal [facility] ([place]) Comment on above: Result Comment: GFR Population mean for , Non- Americans Ages 20-29 = 116 mL/min/1.73 sq.m. Ages 30-39 = 107 mL/min/1.73 sq.m. Ages 40-49 = 99 mL/min/1.73 sq.m. Ages 50-59 = 93 mL/min/1.73 sq.m. Ages 60-69 = 85 mL/min/1.73 sq.m. Ages 70+ = 75 mL/min/1.73 sq.m. Chronic Kidney Disease: Less than 60 mL/min/1.73 square meters End Stage Renal Disease: Less than 15 mL/min/1.73 square meters Performed By: #### Scott Lucero, GFR, BMP #### [address] [address] GFR Non- >60 Normal [facility] ([place] Comment on above: Result Comment: GFR Population mean for , Non- Americans Ages 20-29 = 116 mL/min/1.73 sq.m. Ages 30-39 = 107 mL/min/1.73 sq.m. Ages 40-49 = 99 mL/min/1.73 sq.m. Ages 50-59 = 93 mL/min/1.73 sq.m. Ages 60-69 = 85 mL/min/1.73 sq.m. Ages 70+ = 75 mL/min/1.73 sq.m. Chronic Kidney Disease: Less than 60 mL/min/1.73 square meters End Stage Renal Disease: Less than 15 mL/min/1.73 square meters Performed By: #### Scott Lucero, GFR, BMP #### [address] [address] .NEUABSon 04-08-2023 Neutrophil, Absolute 7.3 10 3/mcL Normal 2.3-8.1 [facility] ([place] Comment on above: Performed By: #### Scott Lucero, GFR, BMP #### [address] [address] CBCon 04-08-2023 Erythrocyte distribution width (RBC) [Ratio] 14.1 % Normal 11.5-15.5 [facility] ([place]) Comment on above: Performed By: #### Scott Lucero, GFR, BMP #### [address] [address] Hematocrit (Bld) [Volume fraction] 37.6 % Low 40.0-52.0 [facility] ([place] Comment on above: Performed By: #### M Nic, GFR, BMP #### [address] [address] Hgb 12.8 G/dL Low 13.0-17.5 [facility] ([place] Comment on above: Performed By: #### M Nic, GFR, BMP #### [address] [address] MCH (RBC) [Entitic mass] 30.4 pg Normal 27.0-33.0 [facility] ([place] Comment on above: Performed By: #### Scott Lucero, GFR, BMP #### [place] [address] MCHC 34.2 G/dL Normal 32.0-36.0 [facility] ([place] Comment on above: Performed By: #### Scott Lucero, GFR, BMP #### [place] [phone] MCV (RBC) [Entitic vol] 89.0 fL Normal 81.0-100.0 [facility] ([place] Comment on above: Performed By: #### Scott Lucero, GFR, BMP #### [place] [phone] Platelet 231 10 3/mcL Normal 150-450 [facility] ([place] Comment on above: Performed By: #### Scott Lucero, GFR, BMP #### [place] [address] Platelet mean volume (Bld) [Entitic vol] 11.4 fL High 6.4-10.5 [facility] ([place] Comment on above: Performed By: #### Scott Lucero, GFR, BMP #### [place] [id number] RBC 4.22 10 6/mcL Low 4.50-6.00 [facility] ([place] Comment on above: Performed By: #### Scott Lucero, GFR, BMP #### [address] [address] WBC 9.4 10 3/mcL Normal 4.5-10.8 [facility] ([place] Comment on above: Performed By: #### M Nic, GFR, BMP #### [address] [address] CMPon 04-08-2023 Albumin Level 3.0 G/dL Low 3.2-4.8 [facility] ([place] Comment on above: Performed By: #### Scott Lucero, GFR, BMP #### [place] [phone] Albumin/Globulin [Mass ratio] 1.0 {ratio} Normal 0.9-1.6 [facility] ([place] Comment on above: Performed By: #### Scott Lucero, GFR, BMP #### [place] [phone] ALP [Catalytic activity/Vol] 116 U/L Normal 38-126 [facility] ([place] Comment on above: Performed By: #### Scott Lucero, GFR, BMP #### [place] [address] ALT [Catalytic activity/Vol] 20 U/L Normal 12-55 [facility] ([place] Comment on above: Performed By: #### Scott Lucero, GFR, BMP #### [place] [phone] AST [Catalytic activity/Vol] 15 U/L Normal 8-34 [facility] ([place] Comment on above: Performed By: #### Scott Lucero, GFR, BMP #### [place] [phone] Bili Total 0.60 mg/dL Normal 0.20-1.20 [facility] ([place] Comment on above: Result Comment: Use of this assay is not recommended for patients undergoing treatment with eltrombopag due to the potential for falsely elevated results. Performed By: #### Scott Lucero, GFR, BMP #### [place] [phone] BUN/Creatinine Ratio 43.8 ratio High 10.0-22.0 [facility] ([place] Comment on above: Performed By: #### M G, GFR, BMP #### [address] [address] Calcium [Mass/Vol] 8.8 mg/dL Normal 8.7-10.4 [facility] ([place]) Comment on above: Performed By: #### Scott Lucero, GFR, BMP #### [address] [address] Chloride [Moles/Vol] 104 mmol/L Normal 98-110 [facility] ([place] Comment on above: Performed By: #### Scott Lucero, GFR, BMP #### [address] [address] CO2 [Moles/Vol] 29 mmol/L Normal 22-32 [facility] ([place] Comment on above: Performed By: #### Scott Lucero, GFR, BMP #### [address] [address] Creatinine [Mass/Vol] 0.89 mg/dL Normal 0.60-1.40 [facility] ([place]) Comment on above: Performed By: #### Scott Lucero, GFR, BMP #### [address] [address] Electrolyte Balance 6.0 mEq/L Normal 4.0-15.0 [facility] ([place]) Comment on above: Performed By: #### Scott Lucero, GFR, BMP #### [address] [address] Globulin 3.0 G/dL Normal 1.5-3.8 [facility] ([place] Comment on above: Performed By: #### Scott G, GFR, BMP #### [address] [address] Glucose [Mass/Vol] 252 mg/dL High 82-115 [facility] ([place]) Comment on above: Performed By: #### Scott Lucero, GFR, BMP #### [address] [address] Potassium [Moles/Vol] 4.5 mmol/L Normal 3.5-5.0 [facility] ([place] Comment on above: Performed By: #### Scott G, GFR, BMP #### [facility] [address] [place] [address] Sodium [Moles/Vol] 139 mmol/L Normal 136-145 [facility] ([place]) Comment on above: Performed By: #### M Nic, GFR, BMP #### [facility] [address] [place] [address] Total Protein 6.0 G/dL Normal 5.7-8.2 [facility] ([place]) Comment on above: Result Comment: No te - New Reference Range in effect 19 Performed By: #### M G, GFR, BMP #### [facility] [address] [place] [address] Urea nitrogen [Mass/Vol] 39.0 mg/dL High 8.0-22.0 [facility] ([place] Comment on above: Performed By: #### M Nic, GFR, BMP #### [address] [address] XR CHEST 1 VIEWon 04-08-2023 XR CHEST 1 VIEW ORIGINAL EXAMINATION: ONE XRAY VIEW OF THE CHEST04/08/2023 11:34 am COMPARISON: None. HISTORY: ORDERING SYSTEM PROVIDED HISTORY: Reason for Exam: rhonchorous lung sounds FINDINGS: Cardiomegaly noted. Sternotomy wires are not well evaluated. Chest wall artifacts compromise the exam. It is difficult to exclude airspace disease in the lower lungs. No obvious pneumothorax. It is not possible to assess for small pleural effusions. No aggressive osseous lesions identified.Bony detail is suboptimal. IMPRESSION: The exam is compromised by body wall/chest wall artifacts. There are significant chest wall artifacts obscuring the lower lungs and it is not possible to assess for consolidation in these regions. Interpreted by: Kelvin Barton MD Preliminary Report By: Kelvin Barton MD Electronically signed By Kelvin Barton MD Dictated Date: 04/08/2023 11:43:51 AM Prelim Date: 04/08/2023 11:45:10 AM Sign Date: 04/08/2023 11:45:10 AM Ordering Provider: JESUS MANUEL Garsia [facility] ([place]) Laboratory - Microbiology an d Antimicrobial susceptibilityon 03-16-2023 S. aureus and MRSA panel SARAH+probe (Nose) Negative Negative [facility] - Drug toxicology Ordered By: Walter Sellers on 02-28-2023 Amphetamines Ql (U) Negative <1000 ng/mL [facility] Benzodiazepines Ql (U) Negative < 200 ng/mL [facility] Cannabinoids Screen Ql (U) Negative < 50 ng/mL [facility] Cocaine Ql (U) Negative < 300 ng/mL [facility] Opiates Ql (U) Negative < 300 ng/mL [facility] No Panel InformationOrdered By: Walter Sellers on 02-28-2023 MDMA (Ecstasy) Screen Negative < 500 ng/mL [facility] Miscellaneous Test See comment [facility] Comment on above: [id number] 6+OXYCODONE-B UND (ng/mL) DRUG RESULT SCREEN CUTOFF____ Amphetamines,Urine Negative ng/mL 1000 Amphetamine test includes Amphetamine and Methamphetamine.Barbiturates Negative ng/mL 200Benzodiazepines Negative ng/mL 200Cannabinoid Negative ng/mL 20Cocaine (Metab) Negative ng/mL 300Opiates Negative ng/mL 300 Opiates test includes Codeine, Morphine, Hydromorphone, Hydrocodone. Oxycodone/Oxymorphone,Urine Positive ng/mL 300 Test includes Oxycodone and Oxymorphone. Oxycodone PositiveOxycodone Conf,MS,UR 1035 ng/mL 300 Oxymorphone Negative 300 TESTING PERFORMED AT [facility]. ORIGINAL REPORT ON FILE IN LAB CONTAINS ADDITIONAL TEST SITE INFORMATION. Urine Barbiturates Screen Negative < 200 ng/mL [facility] Urine Drug Screen Comment [facility] Comment on above: CONFIRMATORY TESTING FOR ALL POSITIVE URINE DRUG SCREENRESULTS WILL ONLY BE SENT OUT UPON PHYSICIAN ORDER. [facility] Urine Drug Screen methods provide only preliminaryanalytical test results. A more specific alternate chemicalmethod must be used in order to obtain a confirmedanalytical result. Gas chromatography/mass spectrometery(GC/MS) is the preferred confirmatory method. Clinicalconsideration and professional judgement should be appliedto any drug of abuse test result, particularly whenpreliminary positive results are used. URINE TCA TESTING MUST BE ORDERED SEPARATELY. USE TESTMNEMONIC: [facility] Urine Methadone Screen Negative < 300 ng/mL [facility] Urine phencyclidine (PCP) de tectionOrdered By: Walter Sellers on 02-28-2023 Phencyclidine Ql (U) Negative < 25 ng/mL [facility] CBC W Auto Differential pane l (Bld)on 11-30-2022 Basophils (Bld) [#/Vol] 0.04 10*3/uL <0.11 k/uL [facility] Basophils/100 WBC (Bld) 0.4 % [facility] Differential cell count method Nom (Bld) Auto [facility] Eosinophils (Bld) [#/Vol] <0.46 k/uL [facility] Eosinophils/100 WBC (Bld) 0.1 % [facility] Erythrocyte distribution width (RBC) [Ratio] 14.0 % 11.5 - 15.0 % [facility] Hematocrit (Bld) [Volume fraction] 42.3 % 39.0 - 51.0 % [facility] Hemoglobin (Bld) [Mass/Vol] 13.9 g/dL 13.0 - 17.0 g/dL [facility] Immature granulocytes (Bld) [#/Vol] 0.05 10*3/uL <0.10 k/uL [facility] Immature granulocytes/100 WBC (Bld) 0.5 % [facility] Lymphocytes (Bld) [#/Vol] 1.62 10*3/uL 1.00 - 4.00 k/uL [facility] Lymphocytes/100 WBC (Bld) 17.1 % [facility] MCH (RBC) [Entitic mass] 30.2 pg 26.0 - 34.0 pg [facility] MCHC (RBC) [Mass/Vol] 32.9 g/dL 30.5 - 36.0 g/dL [facility] MCV (RBC) [Entitic vol] 92.0 fL 80.0 - 100.0 fL [facility] Monocytes (Bld) [#/Vol] 0.78 10*3/uL <0.87 k/uL [facility] Monocytes/100 WBC (Bld) 8.2 % [facility] Neutrophils (Bld) [#/Vol] 6.96 10*3/uL 1.45 - 7.50 k/uL [facility] Neutrophils/100 WBC (Bld) 73.7 % [facility] Nucleated RBC (Bld) [#/Vol] <0.01 k/uL [facility] Nucleated RBC/100 WBC (Bld) [Ratio] 0.0 /100 WBC [facility] Platelet mean volume (Bld) [Entitic vol] 11.5 fL 9.0 - 12.7 fL [facility] Platelets (Bld) [#/Vol] 207 10*3/uL 150 - 400 k/uL [facility] RBC (Bld) [#/Vol] 4.60 10*6/uL 4.20 - 6.00 m/uL [facility] WBC (Bld) [#/Vol] 9.46 10*3/uL 3.70 - 11.00 k/uL [facility] No Panel Informationon 11-17 [facility] XR Chest PA and Lateralon IMPRESSION: Stable exam without acute findings. [employer] Pilot: TOMMY Transcribe Date/Time: Oct 26 2022 3:48P Dictated by : MADAN ZACARIAS MD This examination was interpreted and the report reviewed and electronically signed by: MADAN ZACARIAS MD on Oct 26 2022 3:49PM [facility] DIVISION OF RADIOLOGY * * *Final Report* * * DATE OF EXAM: Oct 25 2022 3:50PM WOX 5291 - XR CHEST 2V FRONTAL/LAT / PROCEDURE REASON: Bacterial pneumonia * * * * Physician Interpretation * * * * EXAMINATION: CHEST RADIOGRAPH (2 VIEW FRONTAL & LATERAL) CLINICAL HISTORY: Bacterial pneumonia MQ: XC2_6 EXAM DATE/TIME: 10/25/2022 3:50 PM COMPARISON: Chest x-ray on 12/28/2020 RESULT: Lines, tubes, and devices: None. Lungs and pleura: No consolidation. No lung mass. No pleural effusion. No pneumothorax. Left-sided large pericardial fat pad is visualized. Cardiomediastinal silhouette: Stable cardiac silhouette and mediastinal contour. Bones and soft tissues: The spine shows exaggerated kyphosis and degenerative changes. DIVISION OF RADIOLOGY Provider, Valeria Vergara - 10/26/2022 * * *Final Report* * * DATE OF EXAM: Oct 25 2022 3:50PM WOX 5291 - XR CHEST 2V FRONTAL/LAT / PROCEDURE REASON: Bacterial pneumonia * * * * Physician Interpretation * * * * EXAMINATION: CHEST RADIOGRAPH (2 VIEW FRONTAL & LATERAL) CLINICAL HISTORY: Bacterial pneumonia MQ: XC2_6 EXAM DATE/TIME: 10/25/2022 3:50 PM COMPARISON: Chest x-ray on 12/28/2020 RESULT: Lines, tubes, and devices: None. Lungs and pleura: No consolidation. No lung mass. No pleural effusion. No pneumothorax. Left-sided large pericardial fat pad is visualized. Cardiomediastinal silhouette: Stable cardiac silhouette and mediastinal contour. Bones and soft tissues: The spine shows exaggerated kyphosis and degenerative changes. IMPRESSION IMPRESSION: Stable exam without acute findings. [employer] Pilot: PSCB Transcribe Date/Time: Oct 26 2022 3:48P Dictated by : MADAN ZACARIAS MD This examination was interpreted and the report reviewed and electronically signed by: MADAN ZACARIAS MD on Oct 26 2022 3:49PM EST [facility] XR Chest PA and LateralOrder ed By: [facility] Provider on 10-26-2022 [facility] CBC W Auto Differential pane l (Bld)on 10-25-2022 Basophils (Bld) [#/Vol] 0.06 10*3/uL <0.11 k/uL [facility] Basophils/100 WBC (Bld) 0.4 % [facility] Differential cell count method Nom (Bld) Auto [facility] Eosinophils (Bld) [#/Vol] 0.06 10*3/uL <0.46 k/uL [facility] Eosinophils/100 WBC (Bld) 0.4 % [facility] Erythrocyte distribution width (RBC) [Ratio] 13.2 % 11.5 - 15.0 % [facility] Hematocrit (Bld) [Volume fraction] 48.7 % 39.0 - 51.0 % [facility] Hemoglobin (Bld) [Mass/Vol] 16.1 g/dL 13.0 - 17.0 g/dL [facility] Immature granulocytes (Bld) [#/Vol] 0.06 10*3/uL <0.10 k/uL [facility] Immature granulocytes/100 WBC (Bld) 0.4 % [facility] Lymphocytes (Bld) [#/Vol] 1.44 10*3/uL 1.00 - 4.00 k/uL [facility] Lymphocytes/100 WBC (Bld) 10.3 % [facility] MCH (RBC) [Entitic mass] 30.4 pg 26.0 - 34.0 pg [facility] MCHC (RBC) [Mass/Vol] 33.1 g/dL 30.5 - 36.0 g/dL [facility] MCV (RBC) [Entitic vol] 91.9 fL 80.0 - 100.0 fL [facility] Monocytes (Bld) [#/Vol] 1.54 10*3/uL High <0.87 k/uL [facility] Monocytes/100 WBC (Bld) 11.0 % [facility] Neutrophils (Bld) [#/Vol] 10.84 10*3/uL High 1.45 - 7.50 k/uL [facility] Neutrophils/100 WBC (Bld) 77.5 % [facility] Nucleated RBC (Bld) [#/Vol] <0.01 k/uL [facility] Nucleated RBC/100 WBC (Bld) [Ratio] 0.0 /100 WBC [facility] Platelet mean volume (Bld) [Entitic vol] 11.6 fL 9.0 - 12.7 fL [facility] Platelets (Bld) [#/Vol] 270 10*3/uL 150 - 400 k/uL [facility] RBC (Bld) [#/Vol] 5.30 10*6/uL 4.20 - 6.00 m/uL [facility] WBC (Bld) [#/Vol] 14.00 10*3/uL High 3.70 - 11.00 k/uL [facility] XR Chest PA and Lateralon Radiology Study observation (narrative) [facility] Absolute lymphocyte countOrd ered By: Shanna Govea on 10-11-2022 Lymphocytes Auto (Unsp spec) [#/Vol] 2.03 10*3/uL 0.83-4.51 [facility] Basophil percentageOrdered B y: Shanna Govea on 10-11-2022 Basophils/100 WBC (Bld) 0.6 % 0-1 [facility] Chloride [Moles/Vol] 104 mmol/L 98-107 [facility] Eosinophils/100 WBC (Bld) 0.3 % 0-5 [facility] Glucose [Mass/Vol] 162 mg/dL 74-106 [facility] Comment on above: Fasting Glucose resu lt greater than or equal to 126 mg/dL suggests DIABETES MELLITUS per A.D.A. criteria. Neutrophils (Bld) [#/Vol] 8.9 10*3/uL 2.0-7.7 [facility] Neutrophils/100 WBC (Bld) 71.3 % 47-70 [facility] Potassium [Moles/Vol] 3.7 mmol/L 3.5-5.1 [facility] Sodium [Moles/Vol] 137 mmol/L 136-145 [facility] WBC (Bld) [#/Vol] 12.5 10*3/uL 4.4-11.0 [facility] Blood erythrocytes count (nu mber/volume)Ordered By: Shanna Govea on 10-11-2022 RBC (Bld) [#/Vol] 5.02 10*6/uL 4.6-6.2 [facility] Blood hemoglobin measurement (mass/volume)Ordered By: Shanna Govea on 10-11-2022 Hemoglobin (Bld) [Mass/Vol] 15.3 g/dL 13.0-16.5 [facility] Blood lymphocytes/100 leukoc ytesOrdered By: Shanna Govea on 10-11-2022 Lymphocytes/100 WBC (Bld) 16.2 % 19-41 [facility] Blood monocytes/100 leukocyt esOrdered By: Shanna Govea on 10-11-2022 Monocytes/100 WBC (Bld) 10.1 % 0-10 [facility] Blood platelet mean volumeOr dered By: Shanna Govea on 10-11-2022 Platelet mean volume (Bld) [Entitic vol] 10.9 fL 6.2-12.0 [facility] Determination of erythrocyte mean corpuscular volume (MCV)Ordered By: Shanna Govea on 10-11-2022 MCV (RBC) [Entitic vol] 91.6 fL 80-94 [facility] Glucose Glucometer (BldC) [M ass/Vol]Ordered By: Shanna Govea on 10-11-2022 Glucose [Mass/Vol] 157 mg/dL 74-106 [facility] Comment on above: MANAGEMENT OF PATIEN T CARE PER NURSING PROTOCOL Hematocrit Auto (Bld) [Volum e fraction]Ordered By: Shanna Govea on 10-11-2022 Hematocrit (Bld) [Volume fraction] 46.0 % 40-54 [facility] Laboratory - Chemistry and C hemistry - challengeOrdered By: Shanna Govea on 10-11-2022 CO2 [Moles/Vol] 27.0 mmol/L 21.0-32.0 [facility] Urea nitrogen/Creatinine [Mass ratio] 26.0 mg/mg 10-20 [facility] Laboratory - Hematology and Cell countsOrdered By: Shanna Govea on 10-11-2022 Erythrocyte distribution width (RBC) [Entitic vol] 42.8 fL 35.1-43.9 [facility] Erythrocyte distribution width (RBC) [Ratio] 12.7 % 11.6-14.6 [facility] Immature granulocytes/100 WBC (Bld) 1.500 % 0.0-0.9 [facility] Comment on above: IG% - Immature Granu locytes (promyelocytes, myelocytes and metamyelocytes) > 1% indicates that a LEFT SHIFT is Present. MCH (RBC) [Entitic mass] 30.5 pg 27.0-32.0 [facility] Nucleated RBC/100 WBC (Bld) [Ratio] 0 % 0-5 [facility] MCHC Auto (RBC) [Mass/Vol]Or dered By: Shanna Govea on 10-11-2022 MCHC (RBC) [Mass/Vol] 33.3 g/dL 32-36 [facility] No Panel InformationOrdered By: Shanna Govea on 10-11-2022 Estimated Creatinine Clearance Calc 65.12 ml/min [facility] Estimated GFR (MDRD) Amer 107 mL/min >60 [facility] Comment on above: GFR Calc Estimated GFR (MDRD) Non-Af Amer 89 mL/min >60 [facility] Comment on above: Non- GFR Calc Platelets bldOrdered By: Ree bautista Xuan on 10-11-2022 Platelets (Bld) [#/Vol] 216 10*3/uL 150-450 [facility] Serum or plasma calcium zay urement (mass/volume)Ordered By: Shanna Govea on 10-11-2022 Calcium [Mass/Vol] 9.3 mg/dL 8.5-10.1 [facility] Serum or plasma creatinine m easurement (mass/volume)Ordered By: Shanna Govea on 10-11-2022 Creatinine [Mass/Vol] 0.92 mg/dL 0.70-1.30 [facility] Comment on above: The validity of the calculated GFR & GFRAA in patients over 70 years has not been determined. Clinical correlation is essential. Serum or plasma urea nitroge n measurement (mass/volume)Ordered By: Shanna Govea on 10-11-2022 Urea nitrogen [Mass/Vol] 24 mg/dL 7-18 [facility] Thin prep Papanicolaou smear with manual screeningOrdered By: Shanna Govea on 10-11-2022 Thin prep Papanicolaou smear with manual screening 6 5-15 [facility] No Panel InformationOrdered By: Josefina Khan on 10-10-2022 Troponin I High Sensitivity 118 pg/mL 3.0-78.0 [facility] Comment on above: Please Note: New [place] t Units and Gender Specific Reference Ranges. For more information see Policy Stat Procedure [facility] High Sensitivity Troponin (TNIH) and attachments. Absolute lymphocyte countOrd ered By: Malia Alcala on 10-09-2022 Lymphocytes Auto (Unsp spec) [#/Vol] 1.73 10*3/uL 0.83-4.51 [facility] Basophil percentageOrdered B y: Malia Alcala on 10-09-2022 Basophils/100 WBC (Bld) 0.6 % 0-1 [facility] Chloride [Moles/Vol] 105 mmol/L 98-107 [facility] Eosinophils/100 WBC (Bld) 1.2 % 0-5 [facility] Glucose [Mass/Vol] 106 mg/dL 74-106 [facility] Comment on above: Fasting Glucose resu lt from 100 to 125 mg/dL suggests IMPAIRED HOMEOSTASIS per A.D.A. criteria. Neutrophils (Bld) [#/Vol] 8.1 10*3/uL 2.0-7.7 [facility] Neutrophils/100 WBC (Bld) 72.5 % 47-70 [facility] Potassium [Moles/Vol] 4.1 mmol/L 3.5-5.1 [facility] Sodium [Moles/Vol] 137 mmol/L 136-145 [facility] WBC (Bld) [#/Vol] 11.1 10*3/uL 4.4-11.0 [facility] Blood erythrocytes count (nu mber/volume)Ordered By: Malia Alcala on 10-09-2022 RBC (Bld) [#/Vol] 4.89 10*6/uL 4.6-6.2 [facility] Blood hemoglobin measurement (mass/volume)Ordered By: Malia Alcala on 10-09-2022 Hemoglobin (Bld) [Mass/Vol] 14.7 g/dL 13.0-16.5 [facility] Blood lymphocytes/100 leukoc ytesOrdered By: Malia Alcala on 10-09-2022 Lymphocytes/100 WBC (Bld) 15.5 % 19-41 [facility] Blood monocytes/100 leukocyt esOrdered By: Malia Alcala on 10-09-2022 Monocytes/100 WBC (Bld) 9.4 % 0-10 [facility] Blood platelet mean volumeOr dered By: Malia Alcala on 10-09-2022 Platelet mean volume (Bld) [Entitic vol] 10.6 fL 6.2-12.0 [facility] Determination of erythrocyte mean corpuscular volume (MCV)Ordered By: Malia Alcala on 10-09-2022 MCV (RBC) [Entitic vol] 91.2 fL 80-94 [facility] Hematocrit Auto (Bld) [Volum e fraction]Ordered By: Malia Alcala on 10-09-2022 Hematocrit (Bld) [Volume fraction] 44.6 % 40-54 [facility] Influenza virus A and B and SARS-CoV-2 (COVID-19) Ag panel - Upper respiratory specimOrdered By: Malia Alcala on 10-09-2022 SARS-CoV-2 (COVID-19) RNA SARAH+probe Ql (Resp) [facility] Laboratory - Chemistry and C hemistry - challengeOrdered By: Malia Alcala on 10-09-2022 CO2 [Moles/Vol] 26.0 mmol/L 21.0-32.0 [facility] Natriuretic peptide B (Bld) [Mass/Vol] 73.1 pg/mL 0-100 [facility] Urea nitrogen/Creatinine [Mass ratio] 26.4 mg/mg 10-20 [facility] Laboratory - Hematology and Cell countsOrdered By: Malia Alcala on 10-09-2022 Erythrocyte distribution width (RBC) [Entitic vol] 42.2 fL 35.1-43.9 [facility] Erythrocyte distribution width (RBC) [Ratio] 12.7 % 11.6-14.6 [facility] Immature granulocytes/100 WBC (Bld) 0.800 % 0.0-0.9 [facility] Comment on above: IG% - Immature Granu locytes (promyelocytes, myelocytes and metamyelocytes) > 1% indicates that a LEFT SHIFT is Present. MCH (RBC) [Entitic mass] 30.1 pg 27.0-32.0 [facility] Nucleated RBC/100 WBC (Bld) [Ratio] 0 % 0-5 [facility] MCHC Auto (RBC) [Mass/Vol]Or dered By: Malia Alcala on 10-09-2022 MCHC (RBC) [Mass/Vol] 33.0 g/dL 32-36 [facility] No Panel InformationOrdered By: Malia Alcala on 10-09-2022 Troponin I High Sensitivity 122 pg/mL 3.0-78.0 [facility] Comment on above: Critical Result(s) C alled at: 19:59:33 10/09/2022 by: Shellie Hobson to Negrito Vela. Results read back by same. Please Note: New Test Units and Gender Specific Reference Ranges. For more information see Policy Stat Procedure [facility] High Sensitivity Troponin (TNIH) and attachments. Estimated Creatinine Clearance Calc 68.86 ml/min [facility] Estimated GFR (MDRD) Amer 115 mL/min >60 [facility] Comment on above: GFR Calc Estimated GFR (MDRD) Non-Af Amer 95 mL/min >60 [facility] Comment on above: Non- GFR Calc Platelets bldOrdered By: Zenaida Alcala on 10-09-2022 Platelets (Bld) [#/Vol] 229 10*3/uL 150-450 [facility] Serum or plasma calcium zay urement (mass/volume)Ordered By: Malia Alcala on 10-09-2022 Calcium [Mass/Vol] 9.5 mg/dL 8.5-10.1 [facility] Serum or plasma creatinine m easurement (mass/volume)Ordered By: Malia Alcala on 10-09-2022 Creatinine [Mass/Vol] 0.87 mg/dL 0.70-1.30 [facility] Comment on above: The validity of the calculated GFR & GFRAA in patients over 70 years has not been determined. Clinical correlation is essential. Serum or plasma urea nitroge n measurement (mass/volume)Ordered By: Malia Alcala on 10-09-2022 Urea nitrogen [Mass/Vol] 23 mg/dL 08-30 [facility] Thin prep Papanicolaou smear with manual screeningOrdered By: Malia Alcala on 10-09-2022 Thin prep Papanicolaou smear with manual screening 6 06-27 [facility] ECHOon 09-30-[address] [facility] [address] LUNG SCREEN WO IVCONon [facility] XR Pelvis and Hip - left AP and Lateral frogon 07-04-2022 IMPRESSION: No acute osseous abnormality Missile Control Pilot: TOMMY Transcribe Date/Time: Jul 04 2022 3:14P Dictated by : LILIA MITCHELL MD This examination was interpreted and the report reviewed and electronically signed by: LILIA MITCHELL MD on Jul 04 2022 3:15PM [facility] DIVISION OF RADIOLOGY * * *Final Report* * * DATE OF EXAM: Jul 04 2022 3:13PM WOX 5351 - XR HIP 3V PELV+ AP/LAT LT / PROCEDURE REASON: Left hip pain * * * * Physician Interpretation * * * * EXAMINATION: XR HIP 3V PELV+ AP/LAT LT CLINICAL HISTORY: Left hip pain Technique: XR HIP 3V PELV+ AP/LAT LT -- LEFT with 3 views on 3 images Comparison: X-ray pelvis and bilateral hips 08/03/2018 RESULT: No acute fracture or dislocation. Joint spaces are maintained. Small acetabular osteophytes. Hardware in the lower lumbar spine. Vascular calcifications are noted. DIVISION OF RADIOLOGY Provider, Valeria Hdz [facility] - 07/04/2022 * * *Final Report* * * DATE OF EXAM: Jul 04 2022 3:13PM WOX 5351 - XR HIP 3V PELV+ AP/LAT LT / PROCEDURE REASON: Left hip pain * * * * Physician Interpretation * * * * EXAMINATION: XR HIP 3V PELV+ AP/LAT LT CLINICAL HISTORY: Left hip pain Technique: XR HIP 3V PELV+ AP/LAT LT -- LEFT with 3 views on 3 images Comparison: X-ray pelvis and bilateral hips 08/03/2018 RESULT: No acute fracture or dislocation. Joint spaces are maintained. Small acetabular osteophytes. Hardware in the lower lumbar spine. Vascular calcifications are noted. IMPRESSION IMPRESSION: No acute osseous abnormality Missile Control Pilot: PSCB Transcribe Date/Time: Jul 04 2022 3:14P Dictated by : LILIA MITCHELL MD This examination was interpreted and the report reviewed and electronically signed by: LILIA MITCHELL MD on Jul 04 2022 3:15PM EST [facility] Radiology Study observation (narrative) [facility] XR Pelvis and Hip - left AP and Lateral frogOrdered By: [facility] Provider on 07-04-2022 [facility] Laboratory - Drug toxicology Ordered By: Dr. Sellers on 03-09-2022 Amphetamines Ql (U) Negative <1000 ng/mL [facility] Benzodiazepines Ql (U) Negative < 200 ng/mL [facility] Cannabinoids Screen Ql (U) Negative < 50 ng/mL [facility] Cocaine Ql (U) Negative < 300 ng/mL [facility] Opiates Ql (U) Positive < 300 ng/mL [facility] No Panel InformationOrdered By: Dr. Sellers on 03-09-2022 MDMA (Ecstasy) Screen Negative < 500 ng/mL [facility] Miscellaneous Test See comment [facility] Comment on above: [id number] 6+OXYCODONE-B UND (ng/mL) DRUG RESULT SCREEN CUTOFF____ Amphetamines,Urine Negative ng/mL 1000 Amphetamine test includes Amphetamine and Methamphetamine.Barbiturates Negative ng/mL 200Benzodiazepines Negative ng/mL 200Cannabinoid Negative ng/mL 20Cocaine (Metab) Negative ng/mL 300Opiates Negative ng/mL 300 Opiates test includes Codeine, Morphine, Hydromorphone, Hydrocodone. Oxycodone/Oxymorphone,Urine Positive ng/mL 300 Test includes Oxydodone and Oxymorphone. Oxycodone PositiveOxycodone Conf,MS,UR > 3000 ng/mL 300 Oxymorphone PositiveOxymorphone Conf,MS,UR 457 ng/mL 300 TESTING PERFORMED AT [facility]. ORIGINAL REPORT ON FILE IN LAB CONTAINS ADDITIONAL TEST SITE INFORMATION. Urine Barbiturates Screen Negative < 200 ng/mL [facility] Urine Drug Screen Comment [facility] Comment on above: CONFIRMATORY TESTING FOR ALL POSITIVE URINE DRUG SCREENRESULTS WILL ONLY BE SENT OUT UPON PHYSICIAN ORDER. [facility] Urine Drug Screen methods provide only preliminaryanalytical test results. A more specific alternate chemicalmethod must be used in order to obtain a confirmedanalytical result. Gas chromatography/mass spectrometery(GC/MS) is the preferred confirmatory method. Clinicalconsideration and professional judgement should be appliedto any drug of abuse test result, particularly whenpreliminary positive results are used. URINE TCA TESTING MUST BE ORDERED SEPARATELY. USE TESTMNEMONIC: [facility] Urine Methadone Screen Negative < 300 ng/mL [facility] Urine phencyclidine (PCP) de tectionOrdered By: Dr. Sellers on 03-09-2022 Phencyclidine Ql (U) Negative < 25 ng/mL [facility] - Drug toxicology on 06-23-2021 Amphetamines Ql (U) Negative <1000 ng/mL [facility] Work Phone: Benzodiazepines Ql (U) Negative < 200 ng/mL [facility] Work Phone: Cannabinoids Screen Ql (U) Negative < 50 ng/mL [facility] Work Phone: Cocaine Ql (U) Negative < 300 ng/mL [facility] Work Phone: Opiates Ql (U) Positive < 300 ng/mL [facility] Work Phone: No Panel Informationon 06-23 MDMA (Ecstasy) Screen Negative < 500 ng/mL [facility] Work Phone: Miscellaneous Test See comment [facility] Work Phone: Comment on above: [id number] 6+OXYCODONE-B UND (ng/mL) DRUG RESULT SCREEN CUTOFF____ Amphetamines,Urine Negative ng/mL 1000 Amphetamine test includes Amphetamine and Methamphetamine.Barbiturates Negative ng/mL 200Benzodiazepines Negative ng/mL 200Cannabinoid Negative ng/mL 20Cocaine (Metab) Negative ng/mL 300Opiates Negative ng/mL 300 Opiates test includes Codeine, Morphine, Hydromorphone, Hydrocodone. Oxycodone/Oxymorphone,Urine Positive ng/mL 300 Test includes Oxydodone and Oxymorphone. Oxycodone Positive [place] [address] ng/mL 300 Oxymorphone Negative 300 TESTING PERFORMED AT [facility]. ORIGINAL REPORT ON FILE IN LAB CONTAINS ADDITIONAL TEST SITE INFORMATION. Urine Barbiturates Screen Negative < 200 ng/mL [facility] Work Phone: Urine Drug Screen Comment [facility] Work Phone: Comment on above: CONFIRMATORY TESTING FOR ALL POSITIVE URINE DRUG SCREENRESULTS WILL ONLY BE SENT OUT UPON PHYSICIAN ORDER. [facility]ISTA Urine Drug Screen methods provide only preliminaryanalytical test results. A more specific alternate chemicalmethod must be used in order to obtain a confirmedanalytical result. Gas chromatography/mass spectrometery(GC/MS) is the preferred confirmatory method. Clinicalconsideration and professional judgement should be appliedto any drug of abuse test result, particularly whenpreliminary positive results are used. URINE TCA TESTING MUST BE ORDERED SEPARATELY. USE TESTMNEMONIC: [facility] Urine Methadone Screen Negative < 300 ng/mL [facility] Work Phone: Urine phencyclidine (PCP) de tectionon 06-23-2021 Phencyclidine Ql (U) Negative < 25 ng/mL [facility] Work Phone: XR Chest PA and Lateralon IMPRESSION: No acute radiographic abnormality. Missile Control Pilot: PSCB Transcribe Date/Time: Dec 28 2020 4:46P Dictated by : LILIA MITCHELL MD This examination was interpreted and the report reviewed and electronically signed by: LILIA MITCHELL MD on Dec 28 2020 4:48PM [facility] DIVISION OF RADIOLOGY * * *Final Report* * * DATE OF EXAM: Dec 28 2020 4:44PM WOX 5291 - XR CHEST 2V FRONTAL/LAT / PROCEDURE REASON: Cough * * * * Physician Interpretation * * * * EXAMINATION: CHEST RADIOGRAPH (2 VIEW FRONTAL & LATERAL) CLINICAL HISTORY: Cough MQ: XC2_6 EXAM DATE/TIME: 12/28/2020 4:44 PM COMPARISON: Chest x-ray 08/03/2018 RESULT: Lines, tubes, and devices: None. Lungs and pleura: No consolidation. No lung mass. No pleural effusion. No pneumothorax. Cardiomediastinal silhouette: Normal cardiomediastinal silhouette. Bones and soft tissues: Kyphosis and degenerative disease of the thoracic spine. Unchanged loss of vertebral body heights in the lower thoracic spine. DIVISION OF RADIOLOGY Provider, Sirena Andreina [facility] - 12/28/2020 * * *Final Report* * * DATE OF EXAM: Dec 28 2020 4:44PM WOX 5291 - XR CHEST 2V FRONTAL/LAT / PROCEDURE REASON: Cough * * * * Physician Interpretation * * * * EXAMINATION: CHEST RADIOGRAPH (2 VIEW FRONTAL & LATERAL) CLINICAL HISTORY: Cough MQ: [id number] EXAM DATE/TIME: 12/28/2020 4:44 PM COMPARISON: Chest x-ray 08/03/2018 RESULT: Lines, tubes, and devices: None. Lungs and pleura: No consolidation. No lung mass. No pleural effusion. No pneumothorax. Cardiomediastinal silhouette: Normal cardiomediastinal silhouette. Bones and soft tissues: Kyphosis and degenerative disease of the thoracic spine. Unchanged loss of vertebral body heights in the lower thoracic spine. IMPRESSION IMPRESSION: No acute radiographic abnormality. Missile Control Pilot[facility] Transcribe Date/Time: Dec 28 2020 4:46P Dictated by : LILIA MITCHELL MD This examination was interpreted and the report reviewed and electronically signed by: LILIA MITCHELL MD on Dec 28 2020 4:48PM EST [facility] Radiology Study observation (narrative) [facility] XR Chest PA and LateralOrder ed By: [facility] Provider on 12-28-2020 [facility] XR Wrist - left PA and Later al and Obliqueon 04-15-2020 IMPRESSION: No acute osseous abnormality identified. Positive ulnar variance. Missile Control Pilot: [facility] Transcribe Date/Time: Apr 15 2020 4:13P Dictated by : KAREL ELLIOTT MD This examination was interpreted and the report reviewed and electronically signed by: KAREL ELLIOTT MD on Apr 15 2020 4:15PM EST DIVISION OF RADIOLOGY * * *Final Report* * * DATE OF EXAM: Apr 15 2020 4:12PM WOX 5270 - XR WRIST 3V PA/LAT/OBL LT / PROCEDURE REASON: Left wrist pain * * * * Physician Interpretation * * * * Left wrist pain HISTORY: 59 years old Clinical information: Left wrist pain pt states pain in left wrist for 8 years ulnar side, fingers are affectedalso, has cts surg.done and elbow tendon repain. no recent inj TECHNIQUE: Images: XR WRIST 3V PA/LAT/OBL LT Comparison: None. RESULT: Findings: Joint spaces are maintained. Degenerative cyst in the capitate. No fracture or dislocation. No erosions are seen. No chondrocalcinosis. Positive ulnar variance. No soft tissue abnormality. DIVISION OF RADIOLOGY Provider, Valeria Hdz [facility] - 04/15/2020 * * *Final Report* * * DATE OF EXAM: Apr 15 2020 4:12PM WOX 5270 - XR WRIST 3V PA/LAT/OBL LT / PROCEDURE REASON: Left wrist pain * * * * Physician Interpretation * * * * Left wrist pain HISTORY: 59 years old Clinical information: Left wrist pain pt states pain in left wrist for 8 years ulnar side, fingers are affectedalso, has cts surg.done and elbow tendon repain. no recent inj TECHNIQUE: Images: XR WRIST 3V PA/LAT/OBL LT Comparison: None. RESULT: Findings: Joint spaces are maintained. Degenerative cyst in the capitate. No fracture or dislocation. No erosions are seen. No chondrocalcinosis. Positive ulnar variance. No soft tissue abnormality. IMPRESSION IMPRESSION: No acute osseous abnormality identified. Positive ulnar variance. Missile Control Pilot: [facility] Transcribe Date/Time: Apr 15 2020 4:13P Dictated by : KAREL ELLIOTT MD This examination was interpreted and the report reviewed and electronically signed by: KAREL ELLIOTT MD on Apr 15 2020 4:15PM EST [facility] Radiology Study observation (narrative) [facility] XR Wrist - left PA and Later al and ObliqueOrdered By: [facility] Provider on 04-15-2020 [facility] No Panel Information [facility] Vital Signs Date Time Vital Sign Value Performing Clinician Annika ramirez 09-09-2024 10:57-0400 Body height 154.9 cm Amauri Jo APRN.TODD Work Phone: [facility] 09-09-2024 10:57-0400 Body mass index (BMI) [Ratio] 47.24 kg/m2 Amauri Jo APRN.CNP Work Phone: [facility] 09-09-2024 10:57-0400 Body weight 113.4 kg Amauri Hernandezter TECHNICAL ACCOUNT REPRESENTATIVE.GUEST HISTORY CLERK Work Phone: [facility] 09-09-2024 10:57-0400 Diastolic blood pressure 82 mm[Hg] Amauri Sasser TECHNICAL ACCOUNT REPRESENTATIVE.GUEST HISTORY CLERK Work Phone: [facility] 09-09-2024 10:57-0400 Heart rate 64 /min Amauri Sasser TECHNICAL ACCOUNT REPRESENTATIVE.GUEST HISTORY CLERK Work Phone: [facility] 09-09-2024 10:57-0400 Respiratory rate 16 /min Amauri Sasser TECHNICAL ACCOUNT REPRESENTATIVE.GUEST HISTORY CLERK Work Phone: [facility] 09-09-2024 10:57-0400 SaO2% (BldA) [Mass fraction] 93 % Amauri Hernandezter TECHNICAL ACCOUNT REPRESENTATIVE.GUEST HISTORY CLERK Work Phone: [facility] 09-09-2024 10:57-0400 Systolic blood pressure 138 mm[Hg] Amauri Sasser TECHNICAL ACCOUNT REPRESENTATIVE.GUEST HISTORY CLERK Work Phone: [facility] 08-07-2024 09:42-0400 Diastolic blood pressure 73 mm[Hg] Angela Haagen TECHNICAL ACCOUNT REPRESENTATIVE.GUEST HISTORY CLERK Work Phone: [facility] 08-07-2024 09:42-0400 Heart rate 59 /min Angela Haagen TECHNICAL ACCOUNT REPRESENTATIVE.GUEST HISTORY CLERK Work Phone: [facility] 08-07-2024 09:42-0400 Respiratory rate 16 /min Angela Haagen TECHNICAL ACCOUNT REPRESENTATIVE.GUEST HISTORY CLERK Work Phone: [facility] 08-07-2024 09:42-0400 SaO2% (BldA) [Mass fraction] 95 % Angela Haagen TECHNICAL ACCOUNT REPRESENTATIVE.GUEST HISTORY CLERK Work Phone: [facility] 08-07-2024 09:42-0400 Systolic blood pressure 133 mm[Hg] Angela Haagen TECHNICAL ACCOUNT REPRESENTATIVE.GUEST HISTORY CLERK Work Phone: [facility] 02-08-2024 11:39-0500 Body mass index (BMI) [Ratio] 44.11 kg/m2 Margi Suppan TECHNICAL ACCOUNT REPRESENTATIVE.GUEST HISTORY CLERK Work Phone: [facility] 02-08-2024 11:39-0500 Body temperature 98.01 [degF] Margi Suppan TECHNICAL ACCOUNT REPRESENTATIVE.GUEST HISTORY CLERK Work Phone: [facility] 02-08-2024 11:39-0500 Body weight 116.57 kg Margi Suppan TECHNICAL ACCOUNT REPRESENTATIVE.GUEST HISTORY CLERK Work Phone: [facility] 02-08-2024 11:39-0500 Diastolic blood pressure 76 mm[Hg] Margi Suppan TECHNICAL ACCOUNT REPRESENTATIVE.GUEST HISTORY CLERK Work Phone: [facility] 02-08-2024 11:39-0500 Heart rate 64 /min Margi Suppan TECHNICAL ACCOUNT REPRESENTATIVE.GUEST HISTORY CLERK Work Phone: [facility] 02-08-2024 11:39-0500 Respiratory rate 16 /min Margi Suppan TECHNICAL ACCOUNT REPRESENTATIVE.GUEST HISTORY CLERK Work Phone: [facility] 02-08-2024 11:39-0500 SaO2% (BldA) [Mass fraction] 96 % Margi Suppan TECHNICAL ACCOUNT REPRESENTATIVE.GUEST HISTORY CLERK Work Phone: [facility] 02-08-2024 11:39-0500 Systolic blood pressure 124 mm[Hg] Margi Suppan TECHNICAL ACCOUNT REPRESENTATIVE.GUEST HISTORY CLERK Work Phone: [facility] 07-05-2023 13:12-0400 Body mass index (BMI) [Ratio] 39.48 kg/m2 Angela Haagen TECHNICAL ACCOUNT REPRESENTATIVE.GUEST HISTORY CLERK Work Phone: [facility] 07-05-2023 13:12-0400 Body weight 104.33 kg Angela Haagen TECHNICAL ACCOUNT REPRESENTATIVE.GUEST HISTORY CLERK Work Phone: [facility] 07-05-2023 13:12-0400 Diastolic blood pressure 70 mm[Hg] Angela Haagen TECHNICAL ACCOUNT REPRESENTATIVE.GUEST HISTORY CLERK Work Phone: [facility] 07-05-2023 13:12-0400 Heart rate 81 /min Angela Haagen TECHNICAL ACCOUNT REPRESENTATIVE.GUEST HISTORY CLERK Work Phone: [facility] 07-05-2023 13:12-0400 Respiratory rate 16 /min Angela Haagen TECHNICAL ACCOUNT REPRESENTATIVE.GUEST HISTORY CLERK Work Phone: [facility] 07-05-2023 13:12-0400 Systolic blood pressure 116 mm[Hg] Angela Schmid APRN.GUEST HISTORY CLERK Work Phone: [facility] 07-03-2023 10:14-0400 Body height 162.6 cm Laurel Aradine DO Work Phone: [facility] 07-03-2023 10:14-0400 Body mass index (BMI) [Ratio] 39.58 kg/m2 Laruel Aradine DO Work Phone: [facility] 07-03-2023 10:140400 Body weight 104.6 kg Laurel Aradine DO Work Phone: [facility] 07-03-2023 10:14-0400 Diastolic blood pressure 68 mm[Hg] Laurel Aradine DO Work Phone: [facility] 07-03-2023 10:14-0400 Heart rate 81 /min Laurel Aradine DO Work Phone: [facility] 07-03-2023 10:140400 Respiratory rate 20 /min Laurel Aradine DO Work Phone: [facility] 07-03-2023 10:14-0400 Systolic blood pressure 145 mm[Hg] Laurel Aradine DO Work Phone: [facility] 06-24-2023 14:00-0400 Inhaled oxygen flow rate 0 L/min Dr. Alyson Arthur Work Phone: [facility] 06-24-2023 14:00-0400 SaO2% (BldA) [Mass fraction] 93 % Dr. Alyson Arthur Work Phone: [facility] 06-24-2023 12:35-0400 Body temperature 97.6 [degF] Dr. Alyson Arthur Work Phone: [facility] 06-24-2023 12:35-0400 Diastolic blood pressure 72 mm[Hg] Dr. Alyson Arthur Work Phone: 2(012)208-456176 [place] [address] 06-24-2023 12:35-0400 Heart rate 96 /min Dr. Alyson Arthur Work Phone: 3(646)379-510176 [place] [address] 06-24-2023 12:35-0400 Respiratory rate 16 /min Dr. Alyson Arthur Work Phone: 3(426)580-000476 [place] [address] 06-24-2023 12:35-0400 Systolic blood pressure 146 mm[Hg] Dr. Alyson Arthur Work Phone: 5(382)866-788476 [place] [address] 06-23-2023 09:35-0400 Body height 162.[address] Alyson Arthur Work Phone: 6(741)987-141076 [place] [address] 06-23-2023 09:35-0400 Body weight 110.[address] Alyson Arthur Work Phone: 9(799)548-165576 [place] [address] 06-22-2023 18:30-0400 Body mass index (BMI) [Ratio] 47.5 kg/m2 Dr. Alyson Arthur Work Phone: 6(086)943-372176 [place] [address] 06-22-2023 18:15-0400 Diastolic blood pressure 73 mm[Hg] Dr. Alyson Arthur Work Phone: 1(650)434-924676 [place] [address] 06-22-2023 18:15-0400 Systolic blood pressure 107 mm[Hg] Dr. Alyson Arthur Work Phone: 6(469)180-047276 [place] [address] 06-22-2023 17:59-0400 Body temperature 97.2 [degF] Dr. Alyson Arthur Work Phone: 2(982)778-320676 [place] [address] 06-22-2023 17:59-0400 Heart rate 88 /min Dr. Alyson Arthur Work Phone: 8(616)483-566276 [place] [address] 06-22-2023 17:59-0400 Respiratory rate 16 /min Dr. Alyson Arthur Work Phone: 9(610)760-526176 [place] [address] 06-22-2023 17:59-0400 SaO2% (BldA) [Mass fraction] 92 % Dr. Alyson Arthur Work Phone: 7(869)277-651076 [place] [address] 06-22-2023 14:08-0400 Body height 157.[address] Alyson Arthur Work Phone: [facility] 06-22-2023 14:08-0400 Body mass index (BMI) [Ratio] 44.9 kg/m2 Dr. Alyson Arthur Work Phone: [facility] 06-22-2023 14:08-0400 Body weight 111.[address] Alyson Arthur Work Phone: [facility] 06-06-2023 15:29-0400 Body height 154.9 cm Kiel Barnes MD Work Phone: [facility] 06-06-2023 15:29-0400 Body mass index (BMI) [Ratio] 46.29 kg/m2 Kiel Barnes MD Work Phone: [facility] 06-06-2023 15:29-0400 Body weight 111.13 kg Kiel Barnes MD Work Phone: [facility] 06-06-2023 15:29-0400 Diastolic blood pressure 64 mm[Hg] Kiel Barnes MD Work Phone: [facility] 06-06-2023 15:29-0400 Heart rate 83 /min Kiel Barnes MD Work Phone: [facility] 06-06-2023 15:29-0400 SaO2% (BldA) [Mass fraction] 92 % Kiel Barnes MD Work Phone: [facility] 06-06-2023 15:29-0400 Systolic blood pressure 120 mm[Hg] Kiel Barnes MD Work Phone: [facility] 05-29-2023 12:38-0400 Body temperature 98.8 [degF] Jim Jeffers APRN.GUEST HISTORY CLERK Work Phone: [facility] 05-29-2023 12:38-0400 Diastolic blood pressure 68 mm[Hg] Jim Jeffers APRN.GUEST HISTORY CLERK Work Phone: [facility] 05-29-2023 12:38-0400 Heart rate 70 /min Jim Jeffers TECHNICAL ACCOUNT REPRESENTATIVE.GUEST HISTORY CLERK Work Phone: [facility] 05-29-2023 12:38-0400 Respiratory rate 18 /min [facility] TECHNICAL ACCOUNT REPRESENTATIVE.GUEST HISTORY CLERK Work Phone: [facility] 05-29-2023 12:38-0400 SaO2% (BldA) [Mass fraction] 93 % [facility] TECHNICAL ACCOUNT REPRESENTATIVE.GUEST HISTORY CLERK Work Phone: [facility] 05-29-2023 12:38-0400 Systolic blood pressure 126 mm[Hg] [facility] TECHNICAL ACCOUNT REPRESENTATIVE.GUEST HISTORY CLERK Work Phone: [facility] 05-22-2023 09:36-0400 Diastolic blood pressure 74 mm[Hg] Alyson Arthur MD Work Phone: [facility] 05-22-2023 09:36-0400 Heart rate 106 /min Alyson Arthur MD Work Phone: [facility] 05-22-2023 09:36-0400 Systolic blood pressure 151 mm[Hg] Alyson Arthur MD Work Phone: [facility] 05-20-2023 08:16-0400 Heart rate 88 /min MALIA BECERRIL DO [facility] 05-20-2023 08:07-0400 Blood Pressure Cuff Size MALIA HUBERATZLE DO [facility] 05-20-2023 08:07-0400 Blood Pressure Location MALIA SCHEATZLE DO [facility] 05-20-2023 08:07-0400 Blood Pressure Method MALIA HUBERATZLE DO [facility] 05-20-2023 08:07-0400 Body temperature 97.52 [degF] MALIA NGOATZLE DO [facility] 05-20-2023 08:07-0400 Diastolic Blood Pressure Non-Invasive 64 mm[Hg] MALIA BECERRIL DO [facility] 05-20-2023 08:07-0400 Heart rate 88 /min MALIA NGOATZLE DO [facility] 05-20-2023 08:07-0400 Reason For Taking VItal Signs MALIA NGOATZLE DO [facility] 05-20-2023 08:07-0400 Respiratory rate 18 /min MALIA NGOATZLE DO [facility] 05-20-2023 08:07-0400 Systolic Blood Pressure Non-Invasive 118 mm[Hg] MALIA NGOATZLE DO [facility] 05-20-2023 06:38-0400 Body weight 117 kg MALIA NGOATZLE DO [facility] 05-20-2023 00:29-0400 Blood Pressure Cuff Size MALIA NGOATZLE DO [facility] 05-20-2023 00:29-0400 Blood Pressure Location MALIA NGOATZLE DO [facility] 05-20-2023 00:29-0400 Blood Pressure Method MALIA NGOATZLE DO [facility] 05-20-2023 00:29-0400 Body temperature 97.52 [degF] MALIA NGOATZLE DO [facility] 05-20-2023 00:29-0400 Diastolic Blood Pressure Non-Invasive 68 mm[Hg] MALIA NGOATZLE DO [facility] 05-20-2023 00:29-0400 Heart rate 90 /min MALIA NGOATZLE DO [facility] 05-20-2023 00:29-0400 Reason For Taking VItal Signs MALIA NGOATZLE DO [facility] 05-20-2023 00:29-0400 Respiratory rate 18 /min MALIA NGOATZLE DO [facility] 05-20-2023 00:29-0400 Systolic Blood Pressure Non-Invasive 118 mm[Hg] MALIA SCHEATZLE DO [facility] 05-19-2023 21:24-0400 Body temperature 96.98 [degF] MALIA SCHEATZLE DO [facility] 05-19-2023 21:24-0400 Diastolic Blood Pressure Non-Invasive 86 mm[Hg] MALIA SCHEATZLE DO [facility] 05-19-2023 21:24-0400 Heart rate 89 /min MALIA NGOATZLE DO [facility] 05-19-2023 21:24-0400 Respiratory rate 19 /min MALIA NGOATZLE DO [facility] 05-19-2023 21:24-0400 Systolic Blood Pressure Non-Invasive 124 mm[Hg] MALIA NGOATZLE DO [facility] 05-19-2023 16:36-0400 Heart rate 80 /min [facility] 05-19-2023 16:26-0400 Blood Pressure Cuff Size MALIA SCHEATZLE DO [facility] 05-19-2023 16:26-0400 Blood Pressure Location MALIA SCHEATZLE DO [facility] 05-19-2023 16:26-0400 Blood Pressure Method [facility] 05-19-2023 16:26-0400 Reason For Taking VItal Signs MAL[facility]LE [facility] 05-19-2023 07:57-0400 Heart rate 74 /min MALIA NGOATZLE DO [facility] 05-19-2023 07:42-0400 Body temperature 97.88 [degF] MALIA NGOATZLE DO [facility] 05-18-2023 16:43-0400 Body temperature 98.06 [degF] MALIA NGOATZLE DO [facility] 05-18-2023 07:54-0400 Body temperature 97.7 [degF] MALIA NGOATZLE DO [facility] 05-17-2023 05:00-0400 Body weight 118 kg MALIA NGOATZLE DO [facility] 05-16-2023 05:00-0400 Body weight 118.4 kg MALIA NGOATZLE DO [facility] 04-29-2023 19:46-0400 Body height 155 cm MALIA NGOATZLE DO [facility] 04-29-2023 19:46-0400 Body weight 49.7 kg/m2 MALIA NGOATZLE DO [facility] 04-27-2023 16:34-0400 Heart rate 100 /min ALYSON PLUNK DO [facility] 04-27-2023 15:30-0400 Body temperature 99.32 [degF] ALYSON PLUNK DO [facility] 04-27-2023 15:30-0400 Diastolic Blood Pressure Non-Invasive 62 mm[Hg] ALYSON PLUNK DO [facility] 04-27-2023 15:30-0400 Heart rate 96 /min ALYSON PLUNK DO [facility] 04-27-2023 15:30-0400 Mean blood pressure 79 mm[Hg] ALYSON PLUNK DO [facility] 04-27-2023 15:30-0400 Respiratory rate 16 /min ALYSON PLUNK DO [facility] 04-27-2023 15:30-0400 Systolic Blood Pressure Non-Invasive 131 mm[Hg] ALYSON PLUNK DO [address] [place] [address] 04-27-2023 11:12-0400 Heart rate 98 /min ALYSON PLUNK DO [address] [place] [address] 04-27-2023 11:12-0400 Respiratory rate 16 /min ALYSON PLUNK DO [address] [place] [address] 04-27-2023 11:02-0400 Body temperature 98.06 [degF] ALYSON PLUNK DO [address] [place] [address] 04-27-2023 11:02-0400 Diastolic Blood Pressure Non-Invasive 86 mm[Hg] ALYSON PLUNK DO [address] [place] [address] 04-27-2023 11:02-0400 Heart rate 100 /min ALYSON PLUNK DO [address] [place] [address] 04-27-2023 11:02-0400 Respiratory rate 16 /min ALYSON PLUNK DO [address] [place] [address] 04-27-2023 11:02-0400 Systolic Blood Pressure Non-Invasive 138 mm[Hg] ALYSON PLUNK DO [address] [place] [address] 04-27-2023 09:01-0400 Heart rate 104 /min ALYSON PLUNK DO [address] [place] [address] 04-27-2023 07:34-0400 Body temperature 97.7 [degF] ALYSON PLUNK DO [address] [place] [address] 04-27-2023 07:34-0400 Diastolic Blood Pressure Non-Invasive 63 mm[Hg] ALYSON PLUNK DO [address] [place] [address] 04-27-2023 07:34-0400 Systolic Blood Pressure Non-Invasive 131 mm[Hg] ALYSON PLUNK DO [facility] 04-27-2023 02:44-0400 Blood Pressure Location ALYSON PLUNK DO [facility] 04-27-2023 02:44-0400 Blood Pressure Method ALYSON PLUNK DO [facility] 04-27-2023 02:44-0400 Body temperature 98.06 [degF] ALYSON PLUNK DO [facility] 04-27-2023 02:44-0400 Reason For Taking VItal Signs ALYSON PLUNK DO [facility] 04-26-2023 22:48-0400 Reason For Taking VItal Signs ALYSON PLUNK DO [facility] 04-26-2023 19:20-0400 Reason For Taking VItal Signs ALYSON PLUNK DO [facility] 04-26-2023 16:38-0400 Heart rate 100 /min ALYSON PLUNK DO [facility] 04-26-2023 07:20-0400 Blood Pressure Location ALYSON PLUNK DO [facility] 04-26-2023 07:20-0400 Blood Pressure Method ALYSON PLUNK DO [facility] 04-26-2023 02:06-0400 Blood Pressure Location ALYSON PLUNK DO [facility] 04-26-2023 02:06-0400 Blood Pressure Method ALYSON PLUNK DO [facility] 04-25-2023 18:10-0400 Mean blood pressure 87 mm[Hg] ALYSON PLUNK DO [facility] 04-24-2023 22:44-0400 Heart rate 90 /min ALYSON PLUNK DO [facility] 04-24-2023 18:05-0400 Blood Pressure Cuff Size ALYSON PLUNK DO [facility] 04-24-2023 18:05-0400 Heart rate 87 /min ALYSON PLUNK DO [facility] 04-24-2023 14:27-0400 Blood Pressure Cuff Size ALYSON PLUNK DO [facility] 04-24-2023 11:12-0400 Blood Pressure Cuff Size ALYSON PLUNK DO [facility] 04-23-2023 18:23-0400 Body temperature 99.5 [degF] ALYSON PLUNK DO [facility] 04-23-2023 14:04-0400 Heart rate 95 /min ALYSON PLUNK DO [facility] 04-23-2023 12:45-0400 Body height 155 cm ALYSON PLUNK DO [facility] 04-23-2023 12:45-0400 Body weight 123.3 kg ALYSON PLUNK DO [facility] 04-23-2023 12:45-0400 Body weight 51.32 kg/m2 ALYSON PLUNK DO [facility] 04-23-2023 05:56-0400 Body weight 123.3 kg ALYSON PLUNK DO [facility] 04-23-2023 00:00-0500 Body temperature 96.8 [degF] MALIA NGOATZLE DO [facility] 04-23-2023 00:00-0500 Diastolic Blood Pressure Non-Invasive 66 mm[Hg] MALIA NGOATZLE DO [facility] 04-23-2023 00:00-0500 Heart rate 108 /min MALIA NGOATZLE DO [facility] 04-23-2023 00:00-0500 Respiratory rate 20 /min MALIA NGOATZLE DO [facility] 04-22-2023 22:12-0500 Heart rate 91 /min MALIA NGOATZLE DO [facility] 04-22-2023 22:12-0500 Respiratory rate 18 /min MALIA NGOATZLE DO [facility] 04-22-2023 17:06-0500 Blood Pressure Cuff Size MALIA NGOATZLE DO [facility] 04-22-2023 17:06-0500 Blood Pressure Location MALIA NGOATZLE DO [facility] 04-22-2023 17:06-0500 Blood Pressure Method MALIA NGOATZLE DO [facility] 04-22-2023 17:06-0500 Body temperature 97.7 [degF] MALIA NGOATZLE DO [facility] 04-22-2023 17:06-0500 Diastolic Blood Pressure Non-Invasive 52 mm[Hg] MALIA NGOATZLE DO [facility] 04-22-2023 17:06-0500 Heart rate 103 /min MALIA NGOATZLE DO [facility] 04-22-2023 17:06-0500 Reason For Taking VItal Signs MALIA NGOATZLE DO [facility] 04-22-2023 17:06-0500 Respiratory rate 18 /min MALIA NGOATZLE DO [facility] 04-22-2023 17:06-0500 Systolic Blood Pressure Non-Invasive 120 mm[Hg] MALIA NGOATZLE DO [facility] 04-22-2023 14:50-0500 Heart rate 91 /min MALIA HUBERATZLE DO [facility] 04-22-2023 08:30-0500 Heart rate 80 /min MALIA SCHEATZLE DO [facility] 04-22-2023 07:59-0500 Blood Pressure Cuff Size MALIA BECERRIL DO [facility] 04-22-2023 07:59-0500 Blood Pressure Location MALIA NGOATZJENN DO [facility] 04-22-2023 07:59-0500 Blood Pressure Method MALIA NGOATZLE DO [facility] 04-22-2023 07:59-0500 Body temperature 99.5 [degF] MLAIA NGOATZLE DO [facility] 04-22-2023 07:59-0500 Diastolic Blood Pressure Non-Invasive 50 mm[Hg] MALIA BECERRIL DO [facility] 04-22-2023 07:59-0500 Heart rate 80 /min MALIA BECERRIL DO [facility] 04-22-2023 07:59-0500 Reason For Taking VItal Signs MALIA BECERRIL DO [facility] 04-22-2023 07:59-0500 Systolic Blood Pressure Non-Invasive 102 mm[Hg] MALIA BECERRIL DO [facility] 04-22-2023 00:55-0500 Blood Pressure Cuff Size MALIA BECERRIL DO [facility] 04-22-2023 00:55-0500 Blood Pressure Location MALIA NGOATZJENN DO [facility] 04-22-2023 00:55-0500 Blood Pressure Method MALIA NGOATZLE DO [facility] 04-22-2023 00:55-0500 Body temperature 97.16 [degF] MALIA NGOATZLE DO [facility] 04-22-2023 00:55-0500 Reason For Taking VItal Signs MALIA NGOATZLE DO [facility] 04-21-2023 22:56-0500 Body temperature 98.24 [degF] MALIA SCHEATZLE DO [facility] 04-21-2023 17:18-0500 Body temperature 100.76 [degF] MALIA SCHEATZLE DO [facility] 04-18-2023 07:51-0500 Body weight 126.6 kg MALIA SCHEATZLE DO [facility] 04-18-2023 01:07-0500 Heart rate 76 /min MALIA NGOATZLE DO [facility] 04-17-2023 14:40-0500 Body weight 126.6 kg MALIA NGOATZLE DO [facility] 04-16-2023 22:03-0500 Body weight 125.6 kg MALIA NGOATZLE DO [facility] 04-13-2023 13:00-0500 Body height 155 cm MALIA NGOATZLE DO [facility] 04-13-2023 13:00-0500 Body weight 52.7 kg/m2 MALIA NGOATZLE DO [facility] 03-16-2023 11:27-0500 Body height 154.9 cm Kiel Barnes MD Work Phone: [facility] 03-16-2023 11:27-0500 Body weight 128.37 kg Kiel Barnes MD Work Phone: [facility] 03-16-2023 11:27-0500 Diastolic blood pressure 76 mm[Hg] Kiel Barnes MD Work Phone: [facility] 03-16-2023 11:27-0500 Heart rate 79 /min Kiel Barnes MD Work Phone: [facility] 03-16-2023 11:27-0500 SaO2% (BldA) [Mass fraction] 94 % Kiel Barnes MD Work Phone: [facility] 03-16-2023 11:27-0500 Systolic blood pressure 110 mm[Hg] Kiel Barnes MD Work Phone: [facility] 12-19-2022 13:53-0500 Body height 154.9 cm Benjamin Pike MD Work Phone: [facility] 12-19-2022 13:53-0500 Body weight 128.46 kg Benjamin Pike MD Work Phone: [facility] 12-19-2022 13:53-0500 Diastolic blood pressure 80 mm[Hg] Benjamin Pike MD Work Phone: [facility] 12-19-2022 13:53-0500 Heart rate 78 /min Benjamin Pike MD Work Phone: [facility] 12-19-2022 13:53-0500 Respiratory rate 16 /min Benjamin Pike MD Work Phone: [facility] 12-19-2022 13:53-0500 SaO2% (BldA) [Mass fraction] 97 % Benjamin Pike MD Work Phone: [facility] 12-19-2022 13:53-0500 Systolic blood pressure 144 mm[Hg] Benjamin Pike MD Work Phone: [facility] 11-30-2022 15:15-0400 Body temperature 99 [degF] Pascual Bacon MD Work Phone: [facility] 11-30-2022 15:15-0400 Diastolic blood pressure 80 mm[Hg] Pascual Bacon MD Work Phone: [facility] 11-30-2022 15:15-0400 Systolic blood pressure 128 mm[Hg] Pascual Bacon MD Work Phone: [facility] 11-30-2022 14:28-0400 Body weight 126.1 kg Pascual Bacon MD Work Phone: [facility] 11-30-2022 14:28-0400 Heart rate 82 /min Pascual Bacon MD Work Phone: [facility] 11-30-2022 14:28-0400 Respiratory rate 16 /min Pascual Bacon MD Work Phone: [facility] 11-17-2022 14:31-0400 Body height 156.3 cm Pulm Wstr Work Phone: [facility] 11-17-2022 14:31-0400 Body weight 126.1 kg Pulm Wstr Work Phone: [facility] 10-27-2022 15:02-0400 Body height 154.9 cm Tony Sylvie PA-C Work Phone: [facility] 10-27-2022 15:02-0400 Body temperature 97.5 [degF] Tony Sylvie PA-C Work Phone: [facility] 10-27-2022 15:02-0400 Body weight 125.83 kg Tony [place] PA-C Work Phone: [facility] 10-27-2022 15:02-0400 Diastolic blood pressure 80 mm[Hg] Tony [place] PA-C Work Phone: [facility] 10-27-2022 15:02-0400 Heart rate 97 /min Tony Sylvie PA-C Work Phone: [facility] 10-27-2022 15:02-0400 SaO2% (BldA) [Mass fraction] 96 % Tony [place] PA-C Work Phone: [facility] 10-27-2022 15:02-0400 Systolic blood pressure 132 mm[Hg] Tony Sylvie PA-C Work Phone: [facility] 10-25-2022 14:11-0400 Body height 154.9 cm Alyson Arthur MD Work Phone: [facility] 10-25-2022 14:11-0400 Body weight 125.56 kg Alyson Arthur MD Work Phone: [facility] 10-25-2022 14:11-0400 Diastolic blood pressure 60 mm[Hg] Alyson Arthur MD Work Phone: [facility] 10-25-2022 14:11-0400 Heart rate 95 /min Alyson Arthur MD Work Phone: [facility] 10-25-2022 14:11-0400 SaO2% (BldA) [Mass fraction] 95 % Alyson Arthur MD Work Phone: [facility] 10-25-2022 14:11-0400 Systolic blood pressure 116 mm[Hg] Alyson Arthur MD Work Phone: [facility] 10-11-2022 13:08-0400 Body temperature 98 [degF] Dr. Alyson Arthur Work Phone: [facility] 10-11-2022 13:08-0400 Diastolic blood pressure 77 mm[Hg] Dr. Alyson Arthur Work Phone: [facility] 10-11-2022 13:08-0400 Heart rate 98 /min Dr. Alyson Arthur Work Phone: [facility] 10-11-2022 13:08-0400 Respiratory rate 19 /min Dr. Alyson Arthur Work Phone: [facility] 10-11-2022 13:08-0400 SaO2% (BldA) [Mass fraction] 94 % Dr. Alyson Arthur Work Phone: [facility] 10-11-2022 13:08-0400 Systolic blood pressure 143 mm[Hg] Dr. Alyson Arthur Work Phone: [facility] 10-11-2022 10:05-0400 Inhaled oxygen flow rate 0 L/min Dr. Alyson Arthur Work Phone: [facility] 10-09-2022 22:10-0400 Body height 157.[address] Alyson Arthur Work Phone: [facility] 10-09-2022 22:10-0400 Body mass index (BMI) [Ratio] 53.4 kg/m2 Dr. Alyson Arthur Work Phone: [facility] 10-09-2022 22:10-0400 Body weight 132.[address] Alyson Arthur Work Phone: [facility] 10-09-2022 21:00-0400 Body temperature 98 [degF] [facility] 10-09-2022 21:00-0400 Diastolic blood pressure 52 mm[Hg] [facility] 10-09-2022 21:00-0400 Heart rate 89 /min [facility] 10-09-2022 21:00-0400 Respiratory rate 25 /min [facility] 10-09-2022 21:00-0400 SaO2% (BldA) [Mass fraction] 92 % [facility] 10-09-2022 21:00-0400 Systolic blood pressure 137 mm[Hg] [facility] 10-09-2022 14:44-0400 Body mass index (BMI) [Ratio] 54.1 kg/m2 [facility] 10-09-2022 14:44-0400 Body weight 134.1 kg [facility] 10-09-2022 14:19-0400 Body height 157.48 cm [facility] 09-28-2022 15:08-0400 Body weight 131.09 kg Alyson Arthur MD Work Phone: [facility] 09-28-2022 15:08-0400 Diastolic blood pressure 82 mm[Hg] Alyson Arthur MD Work Phone: [facility] 09-28-2022 15:08-0400 Heart rate 98 /min Alyson Arthur MD Work Phone: [facility] 09-28-2022 15:08-0400 SaO2% (BldA) [Mass fraction] 92 % Alyson Arthur MD Work Phone: [facility] 09-28-2022 15:08-0400 Systolic blood pressure 142 mm[Hg] Alyson Arthur MD Work Phone: [facility] 09-23-2022 02:40-0400 Diastolic blood pressure 79 mm[Hg] [facility] 09-23-2022 02:40-0400 Heart rate 74 /min [facility] 09-23-2022 02:40-0400 Respiratory rate 15 /min [facility] 09-23-2022 02:40-0400 SaO2% (BldA) [Mass fraction] 97 % [facility] 09-23-2022 02:40-0400 Systolic blood pressure 168 mm[Hg] [facility] 09-23-2022 02:01-0400 Body height 157.48 cm [facility] 09-23-2022 02:01-0400 Body temperature 98.4 [degF] [facility] 06-28-2022 15:19-0400 Body weight 132.9 kg Angela Schmid TECHNICAL ACCOUNT REPRESENTATIVE.GUEST HISTORY CLERK Work Phone: [facility] 06-28-2022 15:19-0400 Diastolic blood pressure 72 mm[Hg] Angela Schmid TECHNICAL ACCOUNT REPRESENTATIVE.GUEST HISTORY CLERK Work Phone: [facility] 06-28-2022 15:19-0400 Heart rate 88 /min Angela Schmid TECHNICAL ACCOUNT REPRESENTATIVE.GUEST HISTORY CLERK Work Phone: [facility] 06-28-2022 15:19-0400 Respiratory rate 20 /min Angela Schmid TECHNICAL ACCOUNT REPRESENTATIVE.GUEST HISTORY CLERK Work Phone: [facility] 06-28-2022 15:19-0400 SaO2% (BldA) [Mass fraction] 97 % Angela Schmid TECHNICAL ACCOUNT REPRESENTATIVE.GUEST HISTORY CLERK Work Phone: [facility] 06-28-2022 15:19-0400 Systolic blood pressure 136 mm[Hg] Angela Schmid TECHNICAL ACCOUNT REPRESENTATIVE.GUEST HISTORY CLERK Work Phone: [facility] 05-23-2022 10:26-0400 Body weight 131.54 kg Kathy Colbert TECHNICAL ACCOUNT REPRESENTATIVE.GUEST HISTORY CLERK Work Phone: [facility] 05-23-2022 10:26-0400 Diastolic blood pressure 80 mm[Hg] Kathy Colbert TECHNICAL ACCOUNT REPRESENTATIVE.GUEST HISTORY CLERK Work Phone: [facility] 05-23-2022 10:26-0400 Heart rate 88 /min Kathy Gemma TECHNICAL ACCOUNT REPRESENTATIVE.GUEST HISTORY CLERK Work Phone: [facility] 05-23-2022 10:26-0400 Systolic blood pressure 145 mm[Hg] Kathy Bradleyedwina MCNULTY.GUEST HISTORY CLERK Work Phone: [facility] 05-20-2022 14:21-0400 Body weight 132 kg Alyson Arthur MD Work Phone: [facility] 05-20-2022 14:21-0400 Diastolic blood pressure 82 mm[Hg] Alyson Arthur MD Work Phone: [facility] 05-20-2022 14:21-0400 Heart rate 90 /min Alyson Arthur MD Work Phone: [facility] 05-20-2022 14:21-0400 SaO2% (BldA) [Mass fraction] 95 % Alyson Arthur MD Work Phone: [facility] 05-20-2022 14:21-0400 Systolic blood pressure 170 mm[Hg] Alyson Arthur MD Work Phone: [facility] 10-22-2021 14:19-0400 Body weight 128.82 kg NA Livingston PA-C Work Phone: [facility] 10-22-2021 14:19-0400 Diastolic blood pressure 70 mm[Hg] NA Livingston PA-C Work Phone: [facility] 10-22-2021 14:19-0400 Heart rate 107 /min NA Livingston PA-C Work Phone: [facility] 10-22-2021 14:19-0400 Respiratory rate 18 /min NA Livingston PA-C Work Phone: [facility] 10-22-2021 14:19-0400 SaO2% (BldA) [Mass fraction] 94 % NA Livingston PA-C Work Phone: [facility] 10-22-2021 14:19-0400 Systolic blood pressure 136 mm[Hg] NA Livingston PA-C Work Phone: [facility] 10-18-2021 15:47-0400 Respiratory rate 16 /min [facility] Work Phone: 10-18-2021 15:47-0400 SaO2% (BldA) [Mass fraction] 95 % [facility] Work Phone: 10-18-2021 14:20-0400 Diastolic blood pressure 92 mm[Hg] [facility] Work Phone: 10-18-2021 14:20-0400 Heart rate 106 /min [facility] Work Phone: 10-18-2021 14:20-0400 Systolic blood pressure 204 mm[Hg] [facility] Work Phone: 10-18-2021 12:54-0400 Body height 157.48 cm [facility] Work Phone: 10-18-2021 12:54-0400 Body mass index (BMI) [Ratio] 52.4 kg/m2 [facility] Work Phone: 10-18-2021 12:54-0400 Body temperature 97.8 [degF] [facility] Work Phone: 10-18-2021 12:54-0400 Body weight 130.18 kg [facility] Work Phone: Encounters Encounter Date Encounter Type Care Provider Facility Start: 11-05-2024 End: 11-05-2024 ambulatory ALYSON ARTHUR Facility:[facility] Start: 10-30-2024 End: 10-30-2024 ambulatory ALYSON ARTHUR Facility:[facility] Start: 10-03-2024 End: 10-03-2024 ambulatory Alyson Arthur MD Work Phone: [facility] [place] Start: 10-03-2024 End: 10-03-2024 Patient encounter procedure Alyson Arthur MD Work Phone: [facility] Comment on above: Population Health Na vigation Outreach ([employer] [place] ) Start: 09-27-2024 End: 10-02-2024 Telephone encounter Franklin Cecily Espinal DO Work Phone: Vascular Surgery Comment on above: Appointment (Needs t esting ) Start: 09-13-2024 End: 09-13-2024 Refill Alyson Arthur MD Work Phone: [facility] [place] Comment on above: Refill Request Start: 09-10-2024 End: 09-11-2024 Telephone encounter Kathyjose Colbert TECHNICAL ACCOUNT REPRESENTATIVE.GUEST HISTORY CLERK Work Phone: [facility] [place] Comment on above: Appointment Start: 09-09-2024 End: 09-09-2024 Patient encounter procedure Amauri Jo TECHNICAL ACCOUNT REPRESENTATIVE.GUEST HISTORY CLERK Work Phone: Pulmonary Medicine Comment on above: Multiple lung nodule s (Primary Dx); Encounter for screening for lung cancer; Tobacco use current Start: 09-09-2024 End: 09-09-2024 ambulatory TONY MAJANO Facility:[facility] Start: 09-09-2024 End: 09-09-2024 Subsequent hospital visit by physician [facility] (I-Stat) Work Phone: Cat Scan Comment on above: Cigarette smoker [F1 7.210] Start: 09-03-2024 End: 09-03-2024 ambulatory Alyson Arthur MD Work [facility]: [facility] [place] Start: 09-03-2024 End: 09-03-2024 Patient encounter procedure Alyson Arthur MD Work Phone: [facility] [place] Comment on above: Population Health Na vigation Outreach ([employer] [place] ) Start: 08-22-2024 End: 08-23-2024 Refill Alyson Arthur MD Work Phone: [facility] [place] Comment on above: Refill Request Start: 08-21-2024 End: 08-21-[address] Alyson Arthur MD Work Phone: -Laboratory Start: 08-21-2024 End: 08-21-[address] Walter Sellers MD -Laboratory Work Phone: Start: 08-21-2024 End: 08-21-2024 ambulatory Walter Sellers Facility[facility] Start: 08-19-2024 End: 08-19-2024 Refill Alyson Arthru MD Work Phone: Family [facility] Comment on above: Refill Request Start: 08-13-2024 End: 08-13-2024 Telephone encounter Alyson Arthur MD Work Phone: [facility] [place] Comment on above: Insurance Authorizat ion Start: 08-12-2024 End: 08-13-2024 Follow-up encounter Angela Schmid APRN.GUEST HISTORY CLERK Work Phone: [facility] Start: 08-07-2024 End: 08-07-2024 ambulatory ALYSON ARTHUR Facility:[facility] Start: 08-07-2024 End: 08-07-2024 ambulatory ANGELA SCHMID Facility:[facility] Start: 08-07-2024 End: 08-07-2024 Office outpatient visit 25 minutes Angela Schmid APRN.GUEST HISTORY CLERK Work Phone: [facility] Comment on above: Uncontrolled type 2 diabetes mellitus with hyperglycemia (HCC) (Primary Dx); Peripheral vascular disease; Screening for prostate cancer; Arterial ischemic stroke, MCA (middle cerebral artery), left, acute (HCC); Hyperlipidemia, unspecified hyperlipidemia type; Primary hypertension; Chronic anticoagulation; Bilateral carotid artery stenosis; Impacted cerumen of left ear; Acute otitis externa of left ear, unspecified type Start: 08-02-2024 End: 08-02-2024 ambulatory Alyson Arthur MD Work Phone: [facility] [place] Start: 08-02-2024 End: 08-02-2024 Patient encounter procedure Alyson Arthur MD Work Phone: [facility] Comment on above: Population Health Na vigation Outreach ([facility] ) Start: 07-24-2024 End: 07-24-[address] Alyson Arthur MD Work Phone: [facility] Work Phone: Start: 07-24-2024 End: 07-24-[address] Walter Sellers MD -Laboratory Work Phone: Start: 07-24-2024 End: 07-24-[address] [facility] Facility[facility] Start: 06-21-2024 End: 06-21-2024 Refill Alyson Arhtur MD Work Phone: [facility] Comment on above: Refill Request Start: 06-20-2024 End: 06-20-[address] Alyson Arthur MD Work Phone: [facility] Work Phone: Start: 06-20-2024 End: 06-20-[address] Walter Sellers MD -Radiology, [facility] Work Phone: Start: 06-20-2024 End: 06-20-[address] [facility] Start: 06-03-2024 End: 06-03-2024 ambulatory Alyson Arthur MD Work Phone: [facility] [place] Start: 06-03-2024 End: 06-03-2024 Patient encounter procedure [facility]lyson Arthur MD Work Phone: [facility] [place] Comment on above: Population Health Na vigation Outreach ([facility] ) Start: 05-21-2024 End: 05-21-2024 ambulatory Marline Serrano [facility] Work Phone: Pharmacy Medicine Start: 05-21-2024 End: 05-21-2024 Coordination of care plan Marline Serrano [facility] Work Phone: Pharmacy Medicine Comment on above: Care Coordination (R eferred to Pharmacy for Diabetes Management) Start: 05-14-2024 End: 05-14-2024 Refill Alyson Arthur MD Work Phone: [facility] Comment on above: Refill Request Start: 05-03-2024 End: 05-03-2024 ambulatory Alyson Arthur MD Work Phone: [facility] [place] Start: 05-03-2024 End: 05-03-2024 Patient encounter procedure Alyson Arthur MD Work Phone: [facility] [place] Comment on above: Population Health Na vigation Outreach ([employer] [place] ) Start: 05-01-2024 End: 05-01-2024 Refill Alyson Arthur MD Work Phone: [facility] [place] Comment on above: Refill Request Start: 04-04-2024 End: 04-04-2024 Orders Only Tony Kumarienbaum TECHNICAL ACCOUNT REPRESENTATIVE.GUEST HISTORY CLERK Work Phone: Pulmonology Comment on above: Cigarette smoker (Pr imary Dx) Start: 04-03-2024 End: 04-03-2024 ambulatory Dennys Vásquez MA [facility] Start: 04-03-2024 End: 04-03-2024 Patient encounter procedure Dennys Vásquez MA [facility] Comment on above: Population Health Na vigation Outreach ([employer] [place] Start: 03-28-2024 End: 03-28-2024 Refill Alyson Arthur MD Work Phone: [facility] [place] Comment on above: Refill Request Start: 03-04-2024 End: 03-04-2024 ambulatory Estelle Uriarte MA [facility] Start: 03-04-2024 End: 03-04-2024 Patient encounter procedure Estelle Uriarte MA [facility] Comment on above: Population Health Na vigation Outreach ([employer] [place]) Start: 03-04-2024 End: 03-04-2024 Telephone encounter Alyson Arthur MD Work Phone: [facility] [place] Comment on above: Medication Request Start: 02-15-2024 End: 02-16-2024 Telephone encounter Alyson Arthur MD Work Phone: [facility] [place] Start: 02-08-2024 End: 02-08-2024 ambulatory ALYSON ARTHUR Facility:[facility] Start: 02-08-2024 End: 02-08-2024 ambulatory ALYSON ARTHUR Facility:[facility] Start: 02-08-2024 End: 02-08-2024 Office outpatient visit 40 minutes Margi Riddle APRN.GUEST HISTORY CLERK Work Phone: [facility] [place] Comment on above: Urine frequency (Cintia ned Dx); Encounter for immunization; Screening for depression; Encounter for screening examination for other mental health and behavioral disorders; Chronic obstructive pulmonary disease, unspecified COPD type (HCC); Screening for colon cancer; Type 2 diabetes mellitus with hyperglycemia, with long-term current use of insulin (HCC); Encounter for screening for lung cancer; Screening for lipid disorders; Primary hypertension; Controlled type 2 diabetes mellitus with diabetic neuropathy, with long-term current use of insulin (HCC); Arterial ischemic stroke, MCA (middle cerebral artery), left, acute (HCC); Dilatation of aorta (HCC); Dyspnea, unspecified type; Type 2 diabetes mellitus without complication, without long-term current use of insulin (HCC); Cerebrovascular accident (CVA) due to nonpyogenic cerebral venous thrombosis (HCC); Acute maxillary sinusitis, recurrence not specified Start: 01-29-2024 End: 01-29-2024 Telephone encounter Margi Riddle APRN.GUEST HISTORY CLERK Work Phone: [facility] [place] Comment on above: problem getting to a ppt tomorrow Start: 01-09-2024 End: 01-09-2024 Refill Alyson Arthur MD Work Phone: [facility] [place] Comment on above: Refill Request; Medi cation Problem Start: 12-28-2023 End: 01-01-2024 Telephone encounter Alyson Arthur MD Work Phone: [facility] [place] Comment on above: Orders (Hospital bed ) Forms Start: 12-19-2023 End: 12-22-2023 Telephone encounter Alyson Arthur MD Work Phone: [facility] [place] Comment on above: Medication Problem Start: 12-12-2023 End: 12-18-2023 Telephone encounter Alyson Arthur MD Work Phone: [facility] [place] Comment on above: Medication Problem Start: 12-07-2023 End: 12-07-2023 Refill Alyson Arthur MD Work Phone: [facility] [place] Comment on above: Refill Request Start: 12-06-2023 End: 12-06-2023 Telephone encounter Alyson Arthur MD Work Phone: [facility] [place] Comment on above: Medication Request Start: 11-20-2023 End: 11-21-2023 Telephone encounter Alyson Arthur MD Work Phone: [facility] [place] Comment on above: Calling in Blood Sug ars Start: 11-10-2023 End: 11-10-2023 Refill Alyson Arthur MD Work Phone: [facility] [place] Comment on above: Refill Request Start: 11-07-2023 End: 11-07-2023 Telephone encounter Alyson Arthur MD Work Phone: [facility] [place] Comment on above: Blood Sugar Readings Start: 10-30-2023 End: 11-02-2023 Telephone encounter Alyson Arthur MD Work Phone: [facility] [place] Comment on above: Patient Update Start: 10-27-2023 End: 10-27-2023 ambulatory Mallika Burkett RN Work Phone: [employer] Comment on above: ACM MIGUELITO RN ( ED utilization review per request of payer) Start: 10-25-2023 End: 10-25-2023 Refill Alyson Arthur MD Work Phone: [facility] [place] Comment on above: Refill Request Start: 10-19-2023 End: 10-20-2023 Refill [facility] Comment on above: Refill Request Start: 10-18-2023 End: 10-18-2023 Emergency department patient visit Alyson [facility] Start: 10-18-2023 End: 10-18-2023 Telephone encounter [facility] Comment on above: Patient Update Start: 10-09-2023 End: 10-09-2023 Refill Alyson Arthur MD Work Phone: [facility] Comment on above: Refill Request Start: 10-05-2023 End: 10-05-2023 ambulatory Nurse Intm/Famp Triage [facility] Work Phone: Nurse Phone Triage Comment on above: Nurse Triage Call Start: 10-04-2023 End: 10-05-2023 Telephone encounter Pascual Bacon MD Work Phone: [facility] [place] Comment on above: elevated blood sugar Start: 09-22-2023 Telephone encounter Alyson Arthur MD Work Phone: [facility] [place] Comment on above: Request for order fo r adult pull ups Start: 09-19-2023 Telephone encounter Alyson Arthur MD Work Phone: [facility] [place] Comment on above: Orders Start: 08-07-2023 Refill Alyson Arthur MD Work Phone: [facility] [place] Comment on above: Refill Request Start: 07-25-2023 Refill Alyson Arthur MD Work Phone: [facility] [place] Comment on above: Refill Request Start: 07-21-2023 Telephone encounter Alyson Arthur MD Work Phone: [facility] [place] Comment on above: Patient Update Start: 07-17-2023 Telephone encounter Alyson Arthur MD Work Phone: [facility] [place] Comment on above: [facility] PT- disc harged pt today Start: 07-13-2023 Telephone encounter Alyson Arthur MD Work Phone: [facility] [place] Comment on above: Home Health Point of Care Results Start: 07-05-2023 End: 07-05-2023 Office outpatient visit 15 minutes Angela Schmid APRN.CNP Work Phone: [facility] [place] Comment on above: SBO (small bowel obs truction) (HCC) (Primary Dx) Start: 07-03-2023 End: 07-03-2023 Patient encounter procedure Laurel Pierce DO Work Phone: Stroke Neurology Comment on above: Arterial ischemic st roke (HCC) (Primary Dx); Right hemiparesis (HCC) Start: 06-29-2023 Telephone encounter Alyson Arthur MD Work Phone: Family [facility] Comment on above: FYI-PT plan of care Start: 06-28-2023 Telephone encounter Alyson Arthur MD Work Phone: [facility] [place] Comment on above: OT requesting verbal order Start: 06-27-2023 End: 06-27-2023 Patient encounter procedure Shlomo Alcocer MD Work Phone: Cardiothoracic Comment on above: Aneurysm of ascendin g 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 (HCC) (Primary Dx) Start: 06-27-2023 End: 06-27-2023 Subsequent hospital visit by physician Ct [address] [facility] (I-Stat) Radiology Comment on above: Aneurysm of ascendin g 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 (HCC) [I71.21] Start: 06-26-2023 Telephone encounter Shlomo niño MD Work Phone: Cardiothoracic Comment on above: Refill Request Start: 06-26-2023 End: 07-19-2023 ambulatory ALYSON ARTHUR MD Facility:[facility] Start: 06-24-2023 Non-patient / Non-visit Dr. Michell Arthur Work Phone: [facility] Start: 06-24-2023 Non-patient / Non-visit Dr. Michell Arthur Work Phone: [facility] Work Phone: Start: 06-23-2023 Non-patient / Non-visit Dr. Michell Arthur Work Phone: [facility] Work Phone: Start: 06-22-2023 End: 06-24-2023 Evaluation and management of inpatient [facility] Work [facility]: Start: 06-22-2023 Non-patient / Non-visit Dr. Michell Arthur Work Phone: [facility] Start: 06-22-2023 Telephone encounter Alyson Arthur MD Work Phone: [facility] [place] Comment on above: Patient Update Start: 06-09-2023 Telephone encounter Alyson Arthur MD Work Phone: [facility] [place] Comment on above: Patient Update; Medi cation Request Start: 06-06-2023 End: 06-06-2023 Patient encounter procedure Kiel Barnes MD Work Phone: Cardiology Comment on above: Aortic valve disorde r (Primary Dx); 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); H/O aortic valve replacement with tissue graft; Hx of ascending aorta replacement; H/O ischemic left MCA stroke; Postoperative atrial fibrillation (HCC) Start: 06-05-2023 Telephone encounter Alyson Arthur MD Work Phone: [facility] [place] Comment on above: Insurance Authorizat ion (Eliquis ) Start: 06-01-2023 Telephone encounter Alyson Arthur MD Work Phone: [facility] [place] Comment on above: Occupational therapy orders Start: 05-31-2023 Telephone encounter Alyson Arthur MD Work Phone: [facility] [place] Comment on above: FYI-PT Home Health U pdate Start: 05-30-2023 Telephone encounter Alyson Arthur MD Work Phone: [facility] [place] Comment on above: Patient Update Start: 05-29-2023 Telephone encounter Alyson Arthur MD Work Phone: [facility] [place] Comment on above: OT Start of Care Upd ate Start: 05-29-2023 End: 05-29-2023 Subsequent hospital visit by physician Xr [facility] [place] Work Phone: Radiology Comment on above: Wrist pain, acute, r ight [M25.531] Start: 05-29-2023 End: 05-29-2023 Office outpatient visit 15 minutes Jim Jeffers APRN.CNP Work Phone: [facility] Comment on above: Wrist pain, acute, r ight (Primary Dx) Start: 05-25-2023 Refill Alyson Arthur MD Work Phone: [facility] [place] Comment on above: Prescription Request Home Health Update Start: 05-24-2023 Telephone encounter Alyson Arthur MD Work Phone: Family [facility] [place] Comment on above: Results Patient Update Refill Request Abdominal Pain Start: 05-23-2023 Telephone encounter Alyson Arthur MD Work Phone: Family [facility] [place] Comment on above: results PT plan of care Start: 05-22-2023 Telephone encounter Alyson Arthur MD Work Phone: [facility] [place] Comment on above: Medication Problem Insurance Authorizat ion Start: 05-22-2023 End: 05-22-2023 Subsequent hospital visit by physician Suyapa [facility] [place] Work Phone: Radiology Comment on above: Pleural effusion [J9 0] Start: 05-22-2023 End: 05-22-2023 Patient encounter procedure Alyson Arthur MD Work Phone: Family [facility] [place] Comment on above: Small bowel obstruct ion (HCC) (Primary Dx); Right hemiparesis (HCC); Slurred speech; Mild CAD; Dysarthria; Arterial ischemic stroke, MCA (middle cerebral artery), left, acute (HCC); Dilatation of aorta (HCC); Type 2 diabetes mellitus with hyperglycemia, with long-term current use of insulin (HCC); Pressure injury of coccygeal region, unstageable (HCC); Pleural effusion; Chronic insomnia; Primary hypertension; Bicuspid aortic valve; GERD without esophagitis; Chronic back pain, unspecified back location, unspecified back pain laterality; Chronic diastolic heart failure (HCC); Paroxysmal atrial fibrillation (HCC); Acute ischemic left MCA stroke (HCC); Acute embolism and thrombosis of superficial vein of right arm Start: 05-18-2023 Telephone encounter Alyson Arthur MD Work Phone: [facility] Comment on above: Home Health Orders Start: 04-27-2023 End: 05-20-2023 Evaluation and management of inpatient MALIA BECERRIL DO [facility] Start: 04-26-2023 Telephone encounter Alyson Arthur MD Work Phone: [facility] [place] Comment on above: requesting hospital bed/medication problems Start: 04-24-2023 Telephone encounter Kiel Barnes MD Work Phone: Cardiology Comment on above: Appointment Start: 04-23-2023 End: 04-27-2023 Evaluation and management of inpatient ALYSON WARREN DO [facility] Start: 04-13-2023 Telephone encounter Alyson Arthur MD Work Phone: [facility] [place] Comment on above: Request for discharg e instructions from [facility] on Start: 04-07-2023 End: 04-23-2023 Evaluation and management of inpatient MALIA BECERRIL DO [facility] Start: 03-19-2023 ambulatory Lilia Parker RN [facility] Comment on above: Medication Problem Start: 03-18-2023 Telephone encounter Angela ritter APRN.GUEST HISTORY CLERK Work Phone: [facility] [place] Comment on above: Results Start: 03-17-2023 Patient encounter status Lilia acuna RN [facility] Start: 03-16-2023 ambulatory Shlomo miranda MD Work Phone: Cardiothoracic Comment on above: Patient Education Start: 03-16-2023 End: 03-16-2023 Preprocedural examination done [facility] Work Phone: [facility] Start: 03-16-2023 End: 03-16-2023 Admission to same day surgery center Anesthesia Clearance Work Phone: [facility] Work Phone: Start: 03-16-2023 End: 03-16-2023 Patient encounter procedure [facility] Work Phone: Cardiothoracic Comment on above: Pre-op exam (Primary Dx) Encounter for preope rative anesthesiology assessment for cardiac surgery (Primary Dx) Controlled type 2 di abetes mellitus without complication, unspecified whether jail insulin use (HCC); Pre-operative cardiovascular examination; Aortic valve disorder; 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); Chronic diastolic heart failure (HCC); Chronic bronchitis, simple (HCC); Morbid obesity with BMI of 50.0-59.9, adult (HCC) Controlled type 2 di abetes mellitus without complication, unspecified whether terminal block assembler insulin use (HCC); Pre-operative cardiovascular examination; Aortic valve disorder; 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) Start: 03-16-2023 End: 03-27-2023 Patient encounter status Shlomo Alcocer MD Work Phone: [facility] Start: 02-28-2023 End: 02-28-[address] Alyson Arthur Work Phone: [facility] Work Phone: Start: 01-27-2023 Refill Alyson Arthur MD Work Phone: [facility] Comment on above: Refill Request Start: 01-09-2023 Refill Alyson Arthur MD Work Phone: [facility] Comment on above: Refill Request Start: 12-29-2022 Refill Alyson Arthur MD Work Phone: [facility] Comment on above: Refill Request Start: 12-27-2022 Telephone encounter Leandro soto APRN.CNP Work Phone: [facility] Comment on above: multidisciplinary art team meeting Start: 12-21-2022 Patient encounter status Benjamin Pike MD Work Phone: [facility] Start: 12-21-2022 Telephone encounter Benjamin larry MD Work Phone: [facility] Comment on above: Orders Start: 12-19-2022 End: 12-19-2022 Patient encounter procedure Benjamin Pike MD Work Phone: [facility] Comment on above: Severe aortic stenos is [I35.0] (Primary Dx) Start: 12-09-2022 Refill Alyson Arthur MD Work Phone: [facility] Comment on above: Refill Request Start: 12-07-2022 Telephone encounter Estelle Pat Work Phone: Podiatry Comment on above: Results Start: 12-05-2022 End: 12-05-2022 Patient encounter procedure Estelle Cardenas Work Phone: Podiatry Comment on above: Venous insufficiency (Primary Dx); Diminished pulses in lower extremity; Ingrowing toenail; Diabetic mononeuropathy associated with diabetes mellitus due to underlying condition (HCC); Blister; Blister (nonthermal), right foot, initial encounter; Controlled type 2 diabetes mellitus with diabetic neuropathy, with long-term current use of insulin (HCC); Peripheral vascular disease (HCC) Start: 12-01-2022 Telephone encounter Alyson Arthur MD Work Phone: [facility] Start: 11-30-2022 End: 11-30-2022 Patient encounter procedure Pascual Bacon MD Work Phone: [facility] Comment on above: Blister (nonthermal) , right foot, initial encounter (Primary Dx); Bilateral lower extremity edema; Dependent rubor; Open wound of right lower extremity, subsequent encounter; Controlled type 2 diabetes mellitus with diabetic neuropathy, with long-term current use of insulin (HCC) Start: 11-30-2022 Telephone encounter Alyson Arthur MD Work Phone: [facility] Comment on above: Future Appointment Start: 11-24-2022 Telephone encounter Alyson Arthur MD Work Phone: [address] [place] [address] Comment on above: Patient Update Forms Start: 11-24-2022 End: 11-24-[address] [facility] Start: 11-24-2022 End: 11-24-2022 Subsequent hospital visit by physician [facility] (I-Stat) [facility] Comment on above: Encounter for prepro cedural cardiovascular examination [Z01.810] Start: 11-21-2022 Refill Alyson Arthur MD Work Phone: [facility] Comment on above: Refill Request Start: 11-17-2022 End: 11-17-2022 ambulatory [facility]m [facility] Work Phone: [facility] Comment on above: Spirometry Start: 11-17-2022 End: 11-17-2022 Patient encounter procedure [facility] Work Phone: [facility] [place] Start: 11-17-2022 End: 11-17-2022 Patient encounter status [facility] Work Phone: [facility] Start: 11-08-2022 Patient encounter status Benjamin Pike MD Work Phone: [facility] Start: 11-08-2022 Telephone encounter Benjamin larry MD Work Phone: [facility] Comment on above: Orders Start: 11-02-2022 Telephone encounter Alyson Arthur MD Work Phone: [facility] Comment on above: Patient Request/ CPA P Order Fax Start: 11-01-2022 Telephone encounter Alyson Arthur MD Work Phone: [address] [place] [address] Comment on above: Patient Question Start: 10-27-2022 End: 10-27-2022 Patient encounter procedure Tony Mercer PA-C Work Phone: General Surgery Comment on above: Cutaneous abscess of right lower extremity; Cellulitis of skin Start: 10-26-2022 Telephone encounter Alyson Arthur MD Work Phone: [facility] Comment on above: Results Start: 10-25-2022 End: 10-25-2022 Subsequent hospital visit by physician Xr [facility] Work Phone: Radiology Comment on above: Bacterial pneumonia [J15.9] Start: 10-25-2022 End: 10-25-2022 Patient encounter procedure Alyson Arthur MD Work Phone: [facility] Comment on above: Bacterial pneumonia (Primary Dx); Nonrheumatic aortic valve stenosis; DDD (degenerative disc disease), lumbar; Controlled type 2 diabetes mellitus with diabetic neuropathy, with long-term current use of insulin ([facility]); Bicuspid aortic valve; Sleep apnea, unspecified type; Chronic bronchitis, simple ([facility]); Essential hypertension; Morbid obesity with BMI of 50.0-59.9, adult ([facility]); Leg cramps; Vision changes; Headache, unspecified headache type; Gastroesophageal reflux disease with esophagitis without hemorrhage; Open wound of right lower extremity, subsequent encounter; Cutaneous abscess of right lower extremity; Cellulitis of skin Start: 10-25-2022 Telephone encounter Alyson Arthur MD Work Phone: [facility] Comment on above: Pharmacy Call Start: 10-14-2022 Telephone encounter Alyson Arthur MD Work Phone: [facility] Comment on above: Insurance Authorizat ion Start: 10-11-2022 Telephone encounter Alyson Arthur MD Work Phone: [facility] Comment on above: Patient Update Start: 10-10-2022 Non-patient / Non-visit Dr. Michell Arthur Work Phone: [facility] Work Phone: Start: 10-10-2022 Non-patient / Non-visit Dr. Michell Arthur Work Phone: [facility] Start: 10-09-2022 End: 10-11-2022 Evaluation and management of inpatient [facility] Work Phone: Start: 10-07-2022 Telephone encounter Benjamin larry MD Work Phone: [facility] Comment on above: Appointment (Appoint ment) Start: 10-06-2022 Telephone encounter Alyson Arthur MD Work Phone: [facility] Comment on above: Insurance Authorizat ion (anahi) Start: 10-05-2022 Refill Alyson Arthur MD Work Phone: [facility] Comment on above: Refill Request Start: 10-04-2022 Telephone encounter Kathy Colbert APRN.GUEST HISTORY CLERK Work Phone: Cardiology Comment on above: Results Start: 10-03-2022 Orders Only Kathy villalobos GUEST HISTORY CLERK Work Phone: [facility] Comment on above: Aortic valve stenosi s, etiology of cardiac valve disease unspecified (Primary Dx); Bicuspid aortic valve Start: 09-30-2022 End: 09-30-2022 Patient encounter procedure [facility] Work Phone: Cardiology Comment on above: Bicuspid aortic valv e; Nonrheumatic aortic valve stenosis Start: 09-28-2022 End: 09-28-2022 Patient encounter procedure Alyson Arthur MD Work Phone: [facility] [place] Comment on above: Lumbar radiculopathy (Primary Dx); Controlled type 2 diabetes mellitus with diabetic neuropathy, with long-term current use of insulin (HCC); Bicuspid aortic valve; Nonrheumatic aortic valve stenosis; LVH (left ventricular hypertrophy); Primary hypertension; Hyperlipidemia, unspecified hyperlipidemia type; Chronic bronchitis, simple (HCC); Sleep apnea, unspecified type; GERD without esophagitis; Type 2 diabetes mellitus with microalbuminuria, with long-term current use of insulin (HCC); Morbid obesity with BMI of 50.0-59.9, adult (HCC); Microalbuminuria Start: 09-23-2022 End: 09-23-2022 Emergency department [facility] Work Phone: Start: 08-12-2022 Refill Alyson Arthur MD Work Phone: [facility] [place] Comment on above: Refill Request Start: 08-11-2022 Telephone encounter Alyson Arthur MD Work Phone: [facility] [place] Comment on above: Orders (order for a motorized scooter to go to [facility]) Start: 08-10-2022 Telephone encounter Alyson Arthur MD Work Phone: [facility] [place] Comment on above: Refill Request Start: 08-01-2022 Telephone encounter Alyson Arthur MD Work Phone: [facility] [place] Comment on above: Orders; CPAP Machine /Supplies Start: 07-20-2022 Refrukhsana Arthur MD Work Phone: [facility] Comment on above: Refill Request Start: 07-15-2022 Orders Only Amauri benson APRN.GUEST HISTORY CLERK Work Phone: [facility] Comment on above: Encounter for screen ing for lung cancer (Primary Dx); Tobacco use current Start: 07-14-2022 End: 07-14-2022 Patient encounter procedure Greta Powers OD Work Phone: Ophthalmology Comment on above: Type 2 diabetes adriano itus without retinopathy (HCC) (Primary Dx); Combined forms of age-related cataract of both eyes; Dry eye syndrome of bilateral lacrimal glands; Glaucoma suspect of both eyes Start: 07-14-2022 End: 07-14-2022 Subsequent hospital visit by physician [facility] (I-Stat) Work Phone: Cat [facility] Comment on above: Encounter for screen ing for lung cancer [Z12.2] Start: 07-04-2022 End: 07-04-2022 Subsequent hospital visit by physician Xr [facility] [place] Work Phone: Radiology Comment on above: Left hip pain [M25.5 52] Start: 06-28-2022 End: 06-28-2022 Office outpatient visit 15 minutes Angela Schmid APRN.GUEST HISTORY CLERK Work Phone: [facility] Comment on above: Primary hypertension (Primary Dx); Controlled type 2 diabetes mellitus with diabetic neuropathy, with long-term current use of insulin (HCC); Chronic back pain, unspecified back location, unspecified back pain laterality Start: 06-24-2022 End: 06-24-2022 Patient encounter procedure [facility] Work Phone: Start: 06-24-2022 Refill Alyson Arthur MD Work Phone: [address] [place] [address] Comment on above: Refill Request Start: 05-31-2022 End: 05-31-2022 Patient encounter procedure Greta Powers OD Work Phone: Ophthalmology Comment on above: Type 2 diabetes adriano itus without retinopathy (HCC) (Primary Dx); Combined forms of age-related cataract of both eyes; Dry eye syndrome of bilateral lacrimal glands; Glaucoma suspect of both eyes Start: 05-30-2022 Telephone encounter Alyson Arthur MD Work Phone: Family [facility] [place] Comment on above: Results Start: 05-24-2022 Telephone encounter Alyson Arthur MD Work Phone: [facility] Comment on above: Results Start: 05-23-2022 End: 05-23-2022 Patient encounter procedure Kathy León Gemma JANESSA Work Phone: Cardiology Comment on above: Nonrheumatic aortic valve stenosis (Primary Dx); Bicuspid aortic valve; Edema, unspecified type; Chronic diastolic heart failure (HCC); Hyperlipidemia, unspecified hyperlipidemia type; Primary hypertension; Controlled type 2 diabetes mellitus with diabetic neuropathy, with long-term current use of insulin (HCC); Morbid obesity with BMI of 50.0-59.9, adult (HCC) Start: 05-20-2022 End: 05-20-2022 Patient encounter procedure Alyson Arthur MD Work Phone: [facility] Comment on above: Controlled type 2 di abetes mellitus with diabetic neuropathy, with long-term current use of insulin (HCC) (Primary Dx); Encounter for immunization; Morbid obesity with BMI of 50.0-59.9, adult (HCC); Chronic bronchitis, simple (HCC); Type 2 diabetes mellitus with microalbuminuria, with long-term current use of insulin (HCC); Bipolar 1 disorder (HCC); Bicuspid aortic valve; Hyperlipidemia, unspecified hyperlipidemia type; Primary hypertension; Nonrheumatic aortic valve stenosis; LVH (left ventricular hypertrophy); Sleep apnea, unspecified type; Restrictive lung disease; Microalbuminuria; Screening for lung cancer; Screening for colon cancer Start: 05-18-2022 Telephone encounter Alyson Arthur MD Work Phone: [facility] Comment on above: Forms Start: 04-19-2022 ambulatory Alyson Arthur MD Work Phone: [facility] Comment on above: Allied Health Visit (Medication Adherence Outreach ) Start: 03-22-2022 ambulatory Aria Lr MA [facility] Comment on above: Population Health Na vigation Outreach (Care Gaps) Start: 03-21-2022 Refill [facility]ly[facility] MD [facility] Comment on above: Refill Request Start: 03-09-2022 End: 03-09-2022 ambulatory [facility] Work Phone: Start: 03-09-2022 End: 03-09-2022 Patient encounter procedure [facility] Start: 03-02-2022 Refill Alyson Arthur MD Work Phone: [facility] [place] Comment on above: Refill Request Start: 02-15-2022 Telephone encounter Alyson Arthur MD Work Phone: Family [facility] [place] Comment on above: Medication Problem Start: 02-03-2022 Refill Alyson Arthur MD Work Phone: [facility] [place] Comment on above: Refill Request Start: 12-27-2021 Refill Alyson Arthur MD Work Phone: [facility] Comment on above: Refill Request Start: 11-17-2021 Refill Alyson Arthur MD Work Phone: [facility] [place] Comment on above: Refill Request Start: 11-12-2021 Telephone encounter Alyson Arthur MD Work Phone: [facility] Comment on above: Blood Sugar Updates Start: 11-05-2021 Telephone encounter Alyson Arthur MD Work Phone: Family [facility] [place] Comment on above: Patient Question Start: 11-03-2021 ambulatory Miriam [facility] Comment on above: Population Health Na vigation Outreach ([place] Attribution /) Start: 10-29-2021 Telephone encounter Scott Livingston PA-C Work Phone: Family [facility] [place] Comment on above: Results Start: 10-22-2021 End: 10-22-2021 Patient encounter procedure Scott Livingston PA-C Work Phone: Family [facility] [place] Comment on above: Nonrheumatic aortic valve stenosis (Primary Dx); Bicuspid aortic valve; LVH (left ventricular hypertrophy); Primary hypertension; Hyperlipidemia, unspecified hyperlipidemia type; Type 2 diabetes mellitus with microalbuminuria, with long-term current use of insulin ([facility]); Microalbuminuria; Chronic bronchitis, simple ([facility]); Sleep apnea, unspecified type; Restrictive lung disease; Bipolar 1 disorder ([facility]); Morbid obesity with BMI of 50.0-59.9, adult ([facility]); GERD without esophagitis; Age-related cataract of both eyes, unspecified age-related cataract type; Vitamin D deficiency; Fatigue, unspecified type; Current use of proton pump inhibitor; Nocturnal oxygen desaturation Start: 10-18-2021 End: 10-18-2021 Emergency department [facility] Start: 10-15-2021 Refill Alyson Arthur MD Work Phone: [facility] [place] Comment on above: Refill Request Start: 09-23-2021 ambulatory Apple Baldwin [facility] Comment on above: Population Health Na vigation Outreach ([place] Care Gap) Start: 09-16-2021 Refill Alyson Arthur MD Work Phone: [facility] [place] Comment on above: Refill Request Start: 08-24-2021 Refill Alyson Arthur MD Work Phone: [facility] [place] Comment on above: Refill Request Start: 07-20-2021 Refill Alyson Arthur MD Work Phone: [facility] [place] Comment on above: Refill Request Start: 07-15-2021 ambulatory Nga Hawk MA [facility] Comment on above: Population Health Na vigation Outreach (Navigator [place] [employer] care gap ) Start: 06-24-2021 Refill Alyson Arthur MD Work Phone: [facility] [place] Comment on above: Refill Request Start: 06-23-2021 End: 06-23-2021 Patient encounter procedure [facility] Start: 06-14-2021 ambulatory Karen Romero RN Work Phone: [employer] Comment on above: Community Monitoring Outreach ([employer] program enrollment intro) Start: 05-28-2021 Refill Alyson Arthur MD Work Phone: [facility] Comment on above: Refill Request Start: 12-28-2020 End: 12-28-2020 Subsequent hospital visit by physician Xr [facility] [place] Work Phone: Radiology Comment on above: Cough [R05.9] Start: 11-16-2020 Refill Alyson Arthur MD Work Phone: [facility] Comment on above: Refill Request; Refi ll Request Start: 04-15-2020 End: 04-15-2020 Subsequent hospital visit by physician Xr [facility] [place] Work Phone: Radiology Comment on above: Left wrist pain [M25 .532] Procedures Date Procedure Procedure Detail Performing Clinician Start: 08-21-2024 Methadone measurement, urine Dr. Alyson Arthur MD Work Phone: Start: 08-21-[address] Nancy Arthur MD Work Phone: Comment on above: TEST RESULTS [id number] Drug-Unb Amphetamines, Urine Negative ng/mL Rdlqze=5567 Amphetamine test includes Amphetamine and Methamphetamine. Barbiturate Negative ng/mL Rsjkkm=622 Benzodiazepines Negative ng/mL Uwtcbf=277 Cannabinoid Negative ng/mL Usrhsx=289 Cocaine (Metab.) Negative ng/mL Olcnhf=135 Opiates Negative ng/mL Zebeff=691 Opiate test includes Codeine and Morphine only. Phencyclidine Negative ng/mL Cutoff=25 Methadone Screen, Urine Negative ng/mL Qpdnvd=051 Propoxyphene, Urine Negative ng/mL Vjmdzj=176 [facility] ORIGINAL REPORT ON FILE IN LAB CONTAINS ADDITIONAL TEST SITE INFORMATION. __ Start: 07-24-2024 Methadone measurement, urine Dr. Alyson Arthur MD Work Phone: Start: 07-24-[address] Nancy Arthur MD Work Phone: Comment on above: Test Ordered: [id number] Z31-Vskuav+OC1Jmoutmfliqam Screen, Urine Negative ng/mL UI Reference Range: Yycczs=534Ftcmigkiwew test includes Amphetamine and Methamphetamine.Barbiturates Negative ng/mL UI Reference Range: Mopibu=594Vmelalkjcwxvdmw Negative ng/mL UI Reference Range: Tfujjz=736Uhbgufw (Metab.), Urine Negative ng/mL UI Reference Range: Jdntvw=407Bwbtxhk Note: ng/mL UI See Final Results Reference Range: Sfgnxb=736Lymuaw test includes Codeine, Morphine, Hydromorphone, Hydrocodone.Opiates Positive [A ] UI Reference Range: Gcaaqr=511Mhevjb test includes Codeine, Morphine, Hydromorphone, Hydrocodone.Codeine Negative UI Reference Range: Oubqrp=347Puhptzcq Negative UI Reference Range: Heczhr=974Hnagmhyjmozxh Negative UI Reference Range: Wpusrr=860Agoutmclwuf Positive [A ] UI Reference Range: .Hydrocodone Conf, MS, UR 303 ng/mL UI Reference Range: Nwflny=9774-Fohplsfmkwwfkh, Urine Negative ng/mL UI Reference Range: Cutoff=10Oxycodone/Oxymorphone, Urine Negative ng/mL UI Reference Range: Ivgzvs=098Qcqk includes Oxycodone and OxymorphonePCP, Urine Negative ng/mL UI Reference Range: Cutoff=25Methadone Screen, Urine Negative ng/mL UI Reference Range: Tebzln=403Krvlwjwfvrwp, Urine Negative ng/mL UI Reference Range: Lrczmj=303Pzlccmbj, Urine Negative ng/mL UI Reference Range: Cutoff=2.0Test includes Fentanyl and NorfentanylThis test was developed and its performance characteristicsdetermined by [facility]. It has not been cleared orapproved by the Food and Drug Administration.Tramadol Negative ng/mL UI Reference Range: Rjbyuv=665Zedgsrwhqfdqj, Urine Negative ng/mL UI Reference Range: Cutoff=10Creatinine, Urine 17.2 [L ] mg/dL UI Reference Range: 20.0-300.0Specific [place] 1.0071 UI Reference Range: .pH, Urine 5.5 UI Reference Range: 4.5-8.9Performed at: [facility] [id number] [facility], [place], [place] [id number] Director: Nelson Zamorano PhD, Phone: [phone] at: [facility] [place], [place] [id number] Director: Joe Montana PhD, Phone: [phone] Start: 06-20-2024 X-ray of knee, one o r two views Dr. Alyson Arthur MD Work Phone: Start: 02-08-2024 PFIZER-BIONTECH COVI D-19 VACCINE AGE 12+ YR (COMIRNATY) Margi Riddle TECHNICAL ACCOUNT REPRESENTATIVE.GUEST HISTORY CLERK Work Phone: Start: 02-08-2024 Adult depression scr eening assessment Margi Riddle TECHNICAL ACCOUNT REPRESENTATIVE.GUEST HISTORY CLERK Work Phone: Start: 06-27-2023 Ct angiography chest w/contrast/noncontrast Elma Hester TECHNICAL ACCOUNT REPRESENTATIVE.GUEST HISTORY CLERK Work Phone: Start: 06-24-2023 Plain X-ray abdomen Dr. Alyson Arthur Work Phone: Start: 06-23-[address] Alyson Arthur Work Phone: Start: 06-23-2023 Plain X-ray abdomen Dr. Alyson Arthur Work Phone: Start: 06-22-2023 Plain X-ray abdomen Dr. Alyson Arthur Work Phone: Start: 06-22-2023 CT of abdomen and pe lvis without contrast Dr. Alyson Arthur Work Phone: Start: 05-29-2023 Radex hand minimum 3 views Jim Jeffers TECHNICAL ACCOUNT REPRESENTATIVE.GUEST HISTORY CLERK Work Phone: Start: 05-22-2023 Radiologic exam abdo men 1 view Alyson Arthur MD Work Phone: Start: 05-22-2023 Radiologic exam ches t 2 views Alyson Arthur MD Work Phone: Start: 03-16-2023 Iadna s aureus ampli fied probe tq Shlomo Alcocer MD Work Phone: Start: 11-17-2022 Co diffusing capacity M zelalem Foster TECHNICAL ACCOUNT REPRESENTATIVE.GUEST HISTORY CLERK Work Phone: Start: 10-25-2022 Radiologic exam ches t 2 views Alyson Arthur MD Work Phone: Start: 10-09-2022 CT angiography of ch est with contrast Start: 10-09-2022 Plain chest X-ray Start: 10-09-2022 SARS-CoV-2 & FLU Ant igen (Rapid) Start: 09-30-2022 Echo tthrc r-t 2d w/ wom-mode compl spec&colr d Kathy E Gemma TECHNICAL ACCOUNT REPRESENTATIVE.GUEST HISTORY CLERK Work Phone: Start: 07-14-2022 CT LUNG SCREEN WO BILL Mckeon Deysi TECHNICAL ACCOUNT REPRESENTATIVE.GUEST HISTORY CLERK Work Phone: Start: 07-04-2022 Radex hip unilateral with pelvis 2-3 views Marci Merlos TECHNICAL ACCOUNT REPRESENTATIVE.GUEST HISTORY CLERK Work Phone: Start: 06-24-2022 X-ray of cervical spine Start: 05-31-2022 End: 05-31-2022 Computerized ophthalmic imaging retina Greta Powers OD Work Phone: Start: 05-20-2022 PFIZER-BIONTECH COVI D-19 BIVALENT BOOSTER VACCINE, AGE 12+ YR Alyson Arthur MD Work Phone: Start: 10-18-2021 Plain chest X-ray Start: 12-28-2020 Radiologic exam ches t 2 views Marci Merlos TECHNICAL ACCOUNT REPRESENTATIVE.GUEST HISTORY CLERK Work Phone: Start: 04-15-2020 Radex wrist complete minimum 3 views Alyson Arthur MD Work Phone: Start: 11-11-2015 Adult depression scr eening assessment Alyson Arthur MD Work Phone: Start: 02-13-2007 Colonoscopy Alyson Jackson MD Work Phone: Decompression of med mayte nerve MALIA BECERRIL DO Elbow region structu re (body structure) MALIA BECERRIL DO Comment on above: surgery Entire shoulder marquis on (body structure) MALIA BECERRIL DO Replacement of aortic valve MALIA BECERRIL DO Surgery (qualifier value) DARRYL GONZALEZ JONE DO Comment on above: lumbar fusion Plan of Treatment Date Care Activity Detail Author Start: 08-07-2029 Prostate specific an tigen measurement Prostate Cancer Screening Discussion [facility] Start: 05-03-2026 PROSTATE CANCER SCRE ENING DISCUSSION PROSTATE CANCER SCREENING DISCUSSION [facility] Start: 05-03-2026 Prostate specific an tigen measurement Prostate Cancer Screening Discussion [facility] Start: 09-11-2025 End: 09-11-2025 Patient encounter procedure Cat Scan Comment on above: CT LUNG SCREENING 12 MTH LCS Start: 09-09-2025 Screening for malign ant neoplasm of lung Lung Cancer Screening [facility] Start: 08-07-2025 Annual PCP Team [employer] bac[employer] Disease Visit Annual PCP Team Chronic Disease Visit [facility] Start: 08-07-2025 Diabetic foot examination Diabetic F oot Exam [facility] Start: 08-07-2025 Hepatitis B surface antibody level LDL Cholesterol [facility] Start: 02-07-2025 Annual PCP Team [employer] bac[employer] Disease Visit Annual PCP Team Chronic Disease Visit [facility] Start: 02-07-2025 Anxiety Screening Anxiety Screening [facility] Start: 02-07-2025 BP Controlled (<130/80) BP Controlle d (<130/80) [facility] Start: 02-07-2025 Depression Screening Depression Scre ening [facility] Start: 02-07-2025 Hepatitis B screening Urine Albumin:Creatinine Ratio [facility] Start: 02-07-2025 Hepatitis B surface antibody level LDL Cholesterol [facility] Start: 12-17-2024 End: 12-17-2024 Patient encounter procedure 12/17/2024 3:40 PM EST Office Visit [facility] [place] [address] [place], [place] [id number] Amanda Valente MD [address], [address] [place], [place] [id number] Overdue f/u. kh [facility] [place] Comment on above: Overdue f/u. kh Start: 11-30-2024 End: 11-30-2024 Patient encounter procedure 11/30/2024 9:40 AM EDT Office Visit [facility] [address] [place], [place] [address] Alyson Arthur MD [address] [place], [place] [id number] 3 month follow up [facility] Comment on above: 3 month follow up Start: 11-07-2024 Hemoglobin A1c measurement HbA1C [facility] Start: 10-29-2024 End: 10-29-2024 Patient encounter procedure 10/29/2024 2:00 PM EDT Office Visit Vascular Surgery [address] [place], [place] [id number] Franklin Espinal, DO [address] [place] [address] Peripheral vascular disease [I73.9] Vascular Surgery Comment on above: Peripheral vascular disease [I73.9] Start: 10-16-2024 End: 10-16-2024 Patient encounter procedure Vasculary Surgery Comment on above: Arterial ischemic st roke, MCA (middle cerebral artery), left, acute (HCC) [I63.5... Peripheral vascular disease [I73.9] Start: 10-14-2024 Influenza vaccination Influenza Vacc ine (#1) [facility] Start: 10-01-2024 End: 10-01-2024 Patient encounter procedure 10/01/2024 10:00 AM EDT Office Visit Vascular Surgery [address] [place], [place] [id number] Franklin Espinal, DO [address] [place] [address] VASCULAR Vascular Surgery Comment on above: VASCULAR Start: 09-26-2024 End: 09-26-2024 Patient encounter procedure Vasculary Surgery Comment on above: CARLTON TESTING Start: 09-09-2024 End: 09-09-2024 Patient encounter procedure Cat Scan Comment on above: LCS Start: 09-04-2024 End: 09-04-2024 Patient encounter procedure Vasculary Surgery Comment on above: Dx: Arterial ischemi c stroke, MCA (middle cerebral artery), left, acute (HCC) [I63.512]; Bilateral carotid artery stenosis [I65.23] Dx: Peripheral vascu lar disease [I73.9] Start: 08-27-2024 End: 08-27-2024 Patient encounter procedure 08/27/2024 8:30 AM EDT Office Visit Vascular Surgery [address] [place] [address] Franklin Espinal, DO [address] [place] [address] rescheduled from 08/20 Vascular Surgery Comment on above: rescheduled from Start: 08-20-2024 End: 08-20-2024 Patient encounter procedure 08/20/2024 10:00 AM EDT Office Visit Vascular Surgery [address] [place] [address] Franklin Espinal, DO [address] [place] [address] Dx: Peripheral vascular disease [I73.9] Vascular Surgery Comment on above: Dx: Peripheral vascu lar disease [I73.9] Start: 08-08-2024 Glaucoma screening Dilated Retinal E xam [facility] Comment on above: Postponed from 05/31 (Declined at this time) Start: 08-07-2024 End: 11-06-2024 Hemoglobin A1c in Blood [facility] Comment on above: Expected: 08/07/2024 , Expires: 11/06/2024 Start: 08-07-2024 End: 08-07-2024 Patient encounter procedure 08/07/2024 9:20 AM EDT Office Visit [facility] [address] [place] [address] Angela Schmid APRN.GUEST HISTORY CLERK [address] [place] [address] Medication Follow up [facility] Comment on above: Medication Follow up Start: 07-25-2024 End: 07-25-2024 Patient encounter procedure 07/25/2024 9:40 AM EDT Office Visit [facility] [address] [place], [place] [address] Margi Riddle APRN.GUEST HISTORY CLERK [address] [place] [address] 6 month follow up [facility] Comment on above: 6 month follow up Start: 07-04-2024 Annual PCP Team [employer] bac[employer] Disease Visit Annual PCP Team Chronic Disease Visit [facility] Start: 07-04-2024 BP Controlled (<130/80) BP Controlle d (<130/80) [facility] Start: 06-05-2024 BP Controlled (<130/80) BP Controlle d (<130/80) [facility] Start: 05-28-2024 BP Controlled (<130/80) BP Controlle d (<130/80) [facility] Start: 05-21-2024 Annual PCP Team [employer] bac[employer] Disease Visit Annual PCP Team Chronic Disease Visit [facility] Start: 05-08-2024 Hemoglobin A1c measurement HbA1C [facility] Start: 04-22-2024 End: 04-22-2024 Patient encounter procedure 04/22/2024 8:30 AM EDT Office Visit Pulmonary Medicine [address] [place] [address] Amauri Jo APRN.GUEST HISTORY CLERK [address] [place] [address] Encounter for screening for lung cancer [Z12.2] Pulmonary Medicine Comment on above: Encounter for screen ing for lung cancer [Z12.2] Start: 03-23-2024 Hepatitis B surface antibody level LDL Cholesterol [facility] Start: 03-16-2024 BP Controlled (<130/80) BP Controlle d (<130/80) [facility] Start: 03-02-2024 Diabetic foot examination Diabetic F oot Exam [facility] Start: 02-28-2024 Annual PCP Team [employer] bac[employer] Disease Visit Annual PCP Team Chronic Disease Visit [facility] Start: 02-14-2024 Medicare Advantage A nnual Wellness Visit Medicare Advantage Annual Wellness Visit [facility] Start: 02-08-2024 End: 05-09-2024 Alpha 1 antitrypsin [Mass/volume] in Serum or Plasma [facility] Work Phone: Comment on above: Expected: 02/08/2024 , Expires: 05/09/2024 Start: 02-08-2024 End: 05-09-2024 Cobalamin (Vitamin B12) [Mass/volume] in Serum or Plasma [facility] Comment on above: Expected: 02/08/2024 , Expires: 05/09/2024 Start: 02-08-2024 End: 05-09-2024 Magnesium [Mass/volume] in Serum or Plasma [facility] Comment on above: Expected: 02/08/2024 , Expires: 05/09/2024 Start: 02-08-2024 End: 05-09-2024 Microalbumin/Creatinine [Mass Ratio] in Urine [facility] Comment on above: Expected: 02/08/2024 , Expires: 05/09/2024 Start: 02-08-2024 End: 05-09-2024 Thyrotropin [Units/volume] in Serum or Plasma [facility] Comment on above: Expected: 02/08/2024 , Expires: 05/09/2024 Start: 02-08-2024 End: 05-09-2024 Urinalysis complete panel - Urine [facility] Comment on above: Expected: 02/08/2024 , Expires: 05/09/2024 Start: 02-08-2024 End: 02-08-2024 Patient encounter procedure 02/08/2024 11:20 AM EST Office Visit [facility] [address] [place], [place] [id number] Margi Riddle APRN.GUEST HISTORY CLERK [address] [place], [place] [id number] med check.f/u [facility] Comment on above: med check.f/u Start: 01-05-2024 End: 01-05-2024 Patient encounter procedure 01/05/2024 1:20 PM EST Office Visit Family [facility] [address] [place] [address] Margi Riddle APRN.GUEST HISTORY CLERK [address] [facility] [place] [address] med check / follow up- see TE regarding Novolog Family [facility] Comment on above: med check / follow u p- see TE regarding Novolog Start: 12-25-2023 End: 12-25-2023 Patient encounter procedure 12/25/2023 1:20 PM EST Office Visit [facility] [address] [place] [address] Angela Schmid APRN.GUEST HISTORY CLERK [address] [facility] [place] [address] med check / follow up- see TE regarding Novolog [facility] Comment on above: med check / follow u p- see TE regarding Novolog Start: 12-11-2023 End: 12-11-2023 Patient encounter procedure 12/11/2023 8:40 AM EDT Office Visit Cardiology [address] [place] [id number] Amanda Valente MD [address] [facility], [address] [place], [place] [id number] Follow up Cardiology Comment on above: Follow up Start: 12-06-2023 End: 03-06-2024 CBC W Auto Differential panel - Blood COMPLETE BLOOD COUNT AND DIFFERENTIAL Lab Routine Type 2 diabetes mellitus without complication, without long-term current use of insulin (HCC) Expected: 12/06/2023, Expires: 03/06/2024 [facility] Work Phone: Comment on above: Expected: 12/06/2023 , Expires: 03/06/2024 Start: 12-06-2023 End: 03-06-2024 Comprehensive metabolic 2000 panel - Serum or Plasma COMPREHENSIVE METABOLIC PANEL Lab Routine Type 2 diabetes mellitus without complication, without long-term current use of insulin (HCC) Expected: 12/06/2023, Expires: 03/06/2024 [facility] Comment on above: Expected: 12/06/2023 , Expires: 03/06/2024 Start: 12-06-2023 End: 03-06-2024 Hemoglobin A1c in Blood HEMOGLOBIN A1C Lab Routine Type 2 diabetes mellitus without complication, without long-term current use of insulin (HCC) Expected: 12/06/2023, Expires: 03/06/2024 [facility] Comment on above: Expected: 12/06/2023 , Expires: 03/06/2024 Start: 12-06-2023 End: 03-06-2024 Lipid 1996 panel - Serum or Plasma LIPID PANEL BASIC Lab Routine Type 2 diabetes mellitus without complication, without long-term current use of insulin (HCC) Expected: 12/06/2023, Expires: 03/06/2024 [facility] Comment on above: Expected: 12/06/2023 , Expires: 03/06/2024 Start: 12-01-2023 Annual PCP Team [employer] b[employer] Disease Visit Annual PCP Team Chronic Disease Visit [facility] Start: 11-21-2023 Hemoglobin A1c measurement HbA1C [facility] Start: 11-10-2023 Annual PCP Team [employer] bacilio Disease Visit Annual PCP Team Chronic Disease Visit [facility] Start: 11-03-2023 End: 11-03-2023 Patient encounter procedure 11/03/2023 10:40 AM EDT Office Visit [facility] [address] [place], [place] [address] Margi Riddle APRN.GUEST HISTORY CLERK [address] [place] [address] [facility] ER Follow Up/pneumonia 10/18/23 [facility] Comment on above: [facility] ER Follow Up/pne umonia 10/18/23 Start: 10-26-2023 Annual PCP Team [employer] bac[employer] Disease Visit Annual PCP Team Chronic Disease Visit [facility] Start: 10-26-2023 BP Controlled (<130/80) BP Controlle d (<130/80) [facility] Start: 10-26-2023 Hepatitis B surface antibody level LDL Cholesterol [facility] Start: 10-15-2023 Covid-19 Vaccine ( season) Covid-19 Vaccine ( season) [facility] Start: 10-15-2023 Covid-19 Vaccine ( season) Covid-19 Vaccine () [facility] Start: 10-15-2023 Influenza vaccination Influenza Vacc ine (#1) [facility] Start: 09-29-2023 ANNUAL PCP TEAM SAND HAULER BACILIO DISEASE VISIT ANNUAL PCP TEAM CHRONIC DISEASE VISIT [facility] Start: 08-28-2023 Hemoglobin A1c measurement HbA1C [facility] Start: 07-19-2023 End: 07-19-2023 Patient encounter procedure 07/19/2023 3:00 PM EDT Office Visit Neurology [address] [place] [address] [place] [address] Ivy Avalos MD [address] [place] [address] [address] [place], [place] [id number] Right hemiparesis (HCC) [G81.91] Neurology Comment on above: Right hemiparesis (H CC) [G81.91] Start: 07-16-2023 End: 08-14-2023 CT LUNG SCREEN WO IVCON CT LUNG SCREEN WO IVCON Radiology Routine Encounter for screening for lung cancer Tobacco use current Expected: 07/16/2023, Expires: 08/14/2023 [facility] Work Phone: Comment on above: Expected: 07/16/2023 , Expires: 08/14/2023 Start: 07-15-2023 Influenza vaccination LUNG CANCER SC REENING [facility] Start: 07-15-2023 Screening for malign ant neoplasm of lung Lung Cancer Screening [facility] Start: 07-05-2023 End: 07-05-2023 Patient encounter procedure [facility] Comment on above: hospital follow up hospital follow up ( [facility] dc'd 06/24/23 dx: SBO) Start: 07-03-2023 End: 07-03-2023 Patient encounter procedure 07/03/2023 10:00 AM EDT Office Visit Stroke Neurology [address] [place] [address] Laurel Pierce DO [address] [place] [address] HD Stroke [facility] Comment on above: HD Stroke Start: 06-29-2023 ANNUAL PCP TEAM SAND HAULER BACILIO DISEASE VISIT ANNUAL PCP TEAM CHRONIC DISEASE VISIT [facility] Start: 06-27-2023 End: 06-27-2023 Patient encounter procedure Radiology Comment on above: Aneurysm of ascendin g 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 (HCC) [I71.21] 3 Month Follow Up Start: 06-24-2023 Patient discharge [facility] Start: 06-23-2023 End: 06-24-2023 [facility] Start: 06-23-2023 Following clinical p athway protocol [facility] Start: 06-23-2023 Referral to service [facility] Start: 06-23-2023 End: 06-23-2023 Patient encounter procedure 06/23/2023 11:20 AM EDT Office Visit [facility] [address] [place] [address] Alyson Arthur MD [address] [place] [address] 4 week follow up. Hospital follow up [facility] Comment on above: 4 week follow up. Ho spital follow up Start: 06-23-2023 Referral to general surgeon [facility] Start: 06-23-2023 Blood chemistry [facility] Start: 06-23-2023 Complete blood count [facility] Start: 06-23-2023 Following clinical p athway protocol [facility] Start: 06-23-2023 Application of intermittent pneumatic compression device [facility] Start: 06-23-2023 Inhalation therapy procedure [facility] Start: 06-22-2023 End: 06-22-2023 [facility] Start: 06-22-2023 Following clinical p athway protocol [facility] Start: 06-22-2023 Ambulation without limitation [facility] Start: 06-22-2023 Assessment of risk o f venous thromboembolism [facility] Start: 06-22-2023 Insertion of cathete r into peripheral vein [facility] Start: 06-22-2023 Oxygen therapy [facility] Start: 06-22-2023 Providing care accor ding to standard [facility] Start: 06-22-2023 Referral to occupati onal therapist [facility] Start: 06-22-2023 Referral to service [facility] Start: 06-22-2023 Plain X-ray abdomen Abdomen Si ngle View (Portable) [facility] Start: 06-22-2023 XR Abdomen Single view [facility] Start: 06-22-2023 Care regimes management [facility] Start: 06-22-2023 Notification of physician [facility] Start: 06-22-2023 [facility] Start: 06-22-2023 Verification routine [facility] Start: 06-22-2023 Admission procedure [facility] Start: 06-22-2023 Hospital admission, emergency, from emergency room, medical nature [facility] Start: 06-22-2023 [facility] Start: 06-06-2023 End: 06-06-2023 Patient encounter procedure 06/06/2023 3:15 PM EDT Office Visit Cardiology [address] [place] [address] Kiel Barnes MD [address] [place] [address] OPEN HEART Cardiology Comment on above: OPEN HEART Start: 06-01-2023 Glaucoma screening Dilated Retinal E xam [facility] Start: 06-01-2023 Hepatitis C antibody , confirmatory test DILATED RETINAL EXAM [facility] Start: 05-28-2023 Hepatitis B screening URINE ALBUMIN:CREATININE RATIO [facility] Start: 05-22-2023 End: 08-21-2023 Comprehensive metabolic 2000 panel - Serum or Plasma [facility] Work Phone: Comment on above: Expected: 05/22/2023 , Expires: 08/21/2023 Start: 05-21-2023 3 comp foot exam completed DIABETIC FOOT EXAM [facility] Start: 05-21-2023 ANNUAL PCP TEAM SAND HAULER BACILIO DISEASE VISIT ANNUAL PCP TEAM CHRONIC DISEASE VISIT [facility] Start: 05-21-2023 Diabetic foot examination Diabetic F oot Exam [facility] Start: 05-21-2023 HIV SCREENING HIV SCREENING [facility] Comment on above: Postponed from 09/14 (Declined at this time) Start: 05-21-2023 HIV screening HIV Screening [facility] Comment on above: Postponed from 09/14 (Declined at this time) Start: 05-21-2023 SHINGRIX VACCINE (1 of 2) PARKER GRIX VACCINE (1 of 2) [facility] Comment on above: Postponed from 09/14 (Declined at this time) Start: 05-21-2023 Urine microalbumin profile [facility] Comment on above: Postponed from 09/14 (Declined at this time) Start: 03-31-2023 Hemoglobin A1c measurement HbA1C [facility] Start: 03-31-2023 Hemoglobin A1c/Hemoglobin.total in Blood HBA1C [facility] Start: 02-13-2023 Behavioral Health Screening Behavioral Health Screening [facility] Start: 02-13-2023 Depression Assessment Depression Ass essment [facility] Start: 11-30-2022 End: 03-01-2023 Comprehensive metabolic 2000 panel - Serum or Plasma [facility] Work Phone: Comment on above: Expected: 11/30/2022 , Expires: 03/01/2023 Start: 11-19-2022 Hemoglobin A1c/Hemoglobin.total in Blood HBA1C [facility] Start: 10-27-2022 Hepatitis B surface antibody level LDL CHOLESTEROL [facility] Start: 10-25-2022 End: 12-25-2022 Basic metabolic 2000 panel - Serum or Plasma [facility] Work Phone: Comment on above: Expected: 10/25/2022 , Expires: 12/25/2022 Start: 10-25-2022 End: 12-25-2022 LIPID PANEL, NONFASTING [facility] Work Phone: Comment on above: Expected: 10/25/2022 , Expires: 12/25/2022 Start: 10-25-2022 End: 12-25-2022 Magnesium [Mass/volume] in Serum or Plasma [facility] Work Phone: Comment on above: Expected: 10/25/2022 , Expires: 12/25/2022 Start: 10-22-2022 3 comp foot exam completed DIABETIC FOOT EXAM [facility] Start: 10-22-2022 ANNUAL PCP TEAM SAND HAULER BACILIO DISEASE VISIT ANNUAL PCP TEAM CHRONIC DISEASE VISIT [facility] Start: 10-14-2022 Covid-19 Vaccine ( season) Covid-19 Vaccine () [facility] Start: 10-14-2022 Influenza vaccination C [facility] Start: 10-13-2022 Blood chemistry [facility] Start: 10-12-2022 Blood chemistry [facility] Start: 10-11-2022 Patient discharge [facility] Start: 10-11-2022 Oxygen therapy [facility] Start: 10-09-2022 Following clinical p athway protocol [facility] Start: 10-09-2022 Assessment of risk o f venous thromboembolism [facility] Start: 10-09-2022 Care regimes management [facility] Start: 10-09-2022 Consultation for treatment [facility] Start: 10-09-2022 Continuous positive airway pressure ventilation treatment [facility] Start: 10-09-2022 Inhalation therapy procedure [facility] Start: 10-09-2022 Insertion of cathete r into peripheral vein [facility] Start: 10-09-2022 Notification of physician [facility] Start: 10-09-2022 Providing care accor ding to standard [facility] Start: 10-09-2022 Provision of activit y privileges [facility] Start: 10-09-2022 Referral to occupati onal therapist [facility] Start: 10-09-2022 Referral to service [facility] Start: 10-09-2022 [facility] Start: 10-09-2022 Streptococcus pneumo niae antigen assay [facility] Start: 10-09-2022 Verification routine [facility] Start: 10-09-2022 Admission procedure [facility] Start: 08-09-2022 End: 10-09-2022 Hemoglobin A1c in Blood HGB A1C Lab Routine Controlled type 2 diabetes mellitus with diabetic neuropathy, with long-term current use of insulin (HCC) Expected: 08/09/2022, Expires: 10/09/2022 [facility] Work Phone: Comment on above: Expected: 08/09/2022 , Expires: 10/09/2022 Start: 05-23-2022 End: 07-23-2022 Basic metabolic 2000 panel - Serum or Plasma BASIC METABOLIC PNL Lab Routine Bicuspid aortic valve Nonrheumatic aortic valve stenosis Edema, unspecified type Chronic diastolic heart failure (HCC) Primary hypertension Expected: 05/23/2022, Expires: 07/23/2022 [facility] Work Phone: Comment on above: Expected: 05/23/2022 , Expires: 07/23/2022 Start: 05-23-2022 End: 07-23-2022 Natriuretic peptide.B prohormone N-Terminal [Mass/volume] in Serum or Plasma NT PRO BNP Lab Routine Bicuspid aortic valve Nonrheumatic aortic valve stenosis Edema, unspecified type Chronic diastolic heart failure (HCC) Expected: 05/23/2022, Expires: 07/23/2022 [facility] Work Phone: Comment on above: Expected: 05/23/2022 , Expires: 07/23/2022 Start: 05-20-2022 End: 07-20-2022 ALBUMIN/CREAT RATIO RND UR ALBUMIN/CREAT RATIO RND UR Lab Routine Type 2 diabetes mellitus with microalbuminuria, with long-term current use of insulin (HCC) Expected: 05/20/2022, Expires: 07/20/2022 [facility] Work Phone: Comment on above: Expected: 05/20/2022 , Expires: 07/20/2022 Start: 05-20-2022 End: 07-20-2022 Comprehensive metabolic 2000 panel - Serum or Plasma [facility] Work Phone: Comment on above: Expected: 05/20/2022 , Expires: 07/20/2022 Start: 05-20-2022 End: 07-20-2022 Hemoglobin A1c in Blood [facility] Work Phone: Comment on above: Expected: 05/20/2022 , Expires: 07/20/2022 Start: 05-03-2022 3 comp foot exam completed DIABETIC FOOT EXAM [facility] Start: 05-03-2022 ANNUAL PCP TEAM SAND HAULER BACILIO DISEASE VISIT ANNUAL PCP TEAM CHRONIC DISEASE VISIT [facility] Start: 05-03-2022 Hepatitis B screening URINE ALBUMIN:CREATININE RATIO [facility] Start: 05-03-2022 Hepatitis B surface antibody level LDL CHOLESTEROL [facility] Start: 05-03-2022 HIV SCREENING HIV SCREENING [facility] Comment on above: Postponed from 09/14 (Declined at this time) Start: 02-13-2022 DEPRESSION ASSESSMENT DEPRESSION ASS ESSMENT [facility] Start: 01-26-2022 Hemoglobin A1c/Hemoglobin.total in Blood HBA1C [facility] Start: 01-21-2022 End: 03-23-2022 Hemoglobin A1c in Blood HGB A1C Lab Routine Type 2 diabetes mellitus with microalbuminuria, with long-term current use of insulin (HCC) Expected: 01/21/2022, Expires: 03/23/2022 [facility] Work Phone: Comment on above: Expected: 01/21/2022 , Expires: 03/23/2022 Start: 10-23-2021 End: 12-23-2021 Magnesium [Mass/volume] in Serum or Plasma MAGNESIUM BLD Lab Routine Current use of proton pump inhibitor Expected: 10/23/2021, Expires: 12/23/2021 [facility] Work Phone: Comment on above: Expected: 10/23/2021 , Expires: 12/23/2021 Start: 10-22-2021 End: 12-22-2021 25-hydroxyvitamin D3 [Mass/volume] in Serum or Plasma VITAMIN D 25 HYDROXY Lab Routine Vitamin D deficiency Expected: 10/22/2021, Expires: 12/22/2021 [facility] Work Phone: Comment on above: Expected: 10/22/2021 , Expires: 12/22/2021 Start: 10-22-2021 End: 12-22-2021 CBC panel - Blood by Automated count CBC Lab Routine Type 2 diabetes mellitus with microalbuminuria, with long-term current use of insulin (HCC) Fatigue, unspecified type Expected: 10/22/2021, Expires: 12/22/2021 [facility] Work Phone: Comment on above: Expected: 10/22/2021 , Expires: 12/22/2021 Start: 10-22-2021 End: 12-22-2021 Comprehensive metabolic 2000 panel - Serum or Plasma COMP METABOLIC PANEL Lab Routine Nonrheumatic aortic valve stenosis Bicuspid aortic valve Expected: 10/22/2021, Expires: 12/22/2021 [facility] Work Phone: Comment on above: Expected: 10/22/2021 , Expires: 12/22/2021 Start: 10-22-2021 End: 12-22-2021 Lipid 1996 panel - Serum or Plasma LIPID PANEL BASIC Lab Routine Nonrheumatic aortic valve stenosis Bicuspid aortic valve Expected: 10/22/2021, Expires: 12/22/2021 [facility] Work Phone: Comment on above: Expected: 10/22/2021 , Expires: 12/22/2021 Start: 10-22-2021 End: 12-22-2021 Thyrotropin [Units/volume] in Serum or Plasma TSH BLD Lab Routine Morbid obesity with BMI of 50.0-59.9, adult (HCC) Expected: 10/22/2021, Expires: 12/22/2021 [facility] Work Phone: Comment on above: Expected: 10/22/2021 , Expires: 12/22/2021 Start: 10-18-2021 [facility] Work Phone: Start: 10-14-2021 Influenza vaccination [facility] Start: 2021 Hepatitis B Vaccine (1 of 3 - Risk 3-dose series) Hepatitis B Vaccine (1 of 3 - Risk 3-dose series) [facility] Start: 2021 RSV Vaccine (1 - 1-d ose 60+ series) RSV Vaccine (1 - 1-dose 60+ series) [facility] Start: 2021 RSV Vaccine (1 - Ris k 60-74 years 1-dose series) RSV Vaccine (1 - Risk 60-74 years 1-dose series) [facility] Start: 08-03-2021 Hemoglobin A1c/Hemoglobin.total in Blood HBA1C [facility] Start: 03-24-2021 COVID-19 VACCINE (3 - Booster for Pfizer series) COVID-19 VACCINE (3 - Booster for Pfizer series) [facility] Start: 02-13-2021 DEPRESSION ASSESSMENT DEPRESSION ASS ESSMENT [facility] Start: 12-17-2020 COVID-19 VACCINE (3 - Booster for Pfizer series) COVID-19 VACCINE (3 - Booster for Pfizer series) [facility] Start: 01-13-2020 Hepatitis C antibody , confirmatory test DILATED RETINAL EXAM [facility] Start: 02-13-2017 Colonoscopy COLONOSCOPY [facility] Start: 02-13-2017 COLORECTAL CANCER SCREENING COLORECTAL CANCER SCREENING [facility] Start: 02-13-2017 Screening for malign ant neoplasm of colon [facility] Start: 11-10-2016 Adult depression scr eening assessment DEPRESSION SCREENING [facility] Start: 11-02-2011 PNEUMOCOCCAL (2 - PCV) PNEUMOCOCCAL (2 - PCV) [facility] Start: 09-15-2011 Influenza vaccination LUNG CANCER SC REENING [facility] Start: 09-15-2011 SHINGRIX VACCINE (1 of 2) PARKER GRIX VACCINE (1 of 2) [facility] Start: 2006 COLOGUARD (FIT-DNA) COLOGUARD (FIT-D NA) [facility] Start: [address] COLONOGRAPHY [facility] Start: 2006 FECAL OCCULT BLOOD FECAL OCCULT BLOO D [facility] Start: 2006 Screening for malign ant neoplasm of colon [facility] Start: 2006 SIGMOIDOSCOPY SIGMOIDOSCOPY [facility] Start: 09-15-1991 Zoledronic acid therapy Alpha- 1 Antitrypsin Deficiency Screening [facility] Start: 1980 HEPATITIS B (1 of 3 - Risk 3-dose series) HEPATITIS B (1 of 3 - Risk 3-dose series) [facility] Start: 1980 Urine microalbumin profile [facility] Start: 09-15-1979 Anxiety Screening Anxiety Screening [facility] Start: 09-15-1979 BP CONTROLLED (<130/80) BP CONTROLLE D (<130/80) [facility] Start: 09-15-1979 Depression Screening Depression Scre ening [facility] Start: 09-15-1979 HIV SCREENING HIV SCREENING [facility] Start: 09-15-1979 HIV screening HIV Screening [facility] Start: 09-15-1979 Spirometry Spirometry [facility] Anion gap measurement [facility] BUN/Creatinine ratio [facility] Calcium [Mass/volume ] in Serum or Plasma [facility] Carbon dioxide, tota l [Moles/volume] in Serum or Plasma [facility] Chloride [Moles/volu me] in Serum or Plasma [facility] COLOGUARD COLOGUARD Lab Ro utine Screening for colon cancer Ordered: 05/20/2022 [facility] Work Phone: Comment on above: Ordered: 05/20/2022 Creatinine [Moles/vo lume] in Serum or Plasma [facility] End: 12-08-2023 Ct angio abd&plvis cntrst mtrl w/wo cntrst img CTA ABD/PEL W IVCON Radiology Routine Encounter for preprocedural cardiovascular examination Sleep apnea, unspecified type Bicuspid aortic valve Nonrheumatic aortic valve stenosis Preoperative testing 1 Occurrences starting 11/08/2022 until 12/08/2023 [facility] Work Phone: Comment on above: 1 Occurrences starti ng 11/08/2022 until 12/08/2023 Ct angio abd&plvis c ntrst mtrl w/wo cntrst img CTA ABD/PEL W IVCON Radiology Routine Encounter for preprocedural cardiovascular examination Sleep apnea, unspecified type Bicuspid aortic valve Nonrheumatic aortic valve stenosis Preoperative testing 11/24/2022 9:39 AM EDT [facility] Work Phone: End: 12-08-2023 Ct angiography chest w/contrast/noncontrast CTA CHEST (GATED) WO/W IVCON Radiology Routine Encounter for preprocedural cardiovascular examination Sleep apnea, unspecified type Bicuspid aortic valve Nonrheumatic aortic valve stenosis Preoperative testing 1 Occurrences starting 11/08/2022 until 12/08/2023 [facility] Work Phone: Comment on above: 1 Occurrences starti ng 11/08/2022 until 12/08/2023 Ct angiography chest w/contrast/noncontrast CTA CHEST (GATED) WO/W IVCON Radiology Routine Encounter for preprocedural cardiovascular examination Sleep apnea, unspecified type Bicuspid aortic valve Nonrheumatic aortic valve stenosis Preoperative testing 11/24/2022 9:39 AM EDT [facility] Work Phone: End: 05-04-2025 CT Chest for screening WO contrast CT LUNG SCREEN WO IVCON Radiology Routine Cigarette smoker 1 Occurrences starting 04/04/2024 until 05/04/2025 [facility] Work Phone: Comment on above: 1 Occurrences starti ng 04/04/2024 until 05/04/2025 End: 10-09-2025 CT Chest for screening WO contrast CT LUNG SCREEN WO IVCON Radiology Routine Encounter for screening for lung cancer Tobacco use current 1 Occurrences starting 09/09/2024 until 10/09/2025 [facility] Work Phone: Comment on above: 1 Occurrences starti ng 09/09/2024 until 10/09/2025 CT Chest for screeni ng WO contrast CT LUNG SCREEN WO IVCON Radiology Routine Cigarette smoker 09/09/2024 10:38 AM EDT [facility] Work Phone: DEFINITY CONTRAST DEFINITY CONTR AST Echo Routine Nonrheumatic aortic valve stenosis Bicuspid aortic valve LVH (left ventricular hypertrophy) Ordered: 10/22/2021 [facility] Work Phone: Comment on above: Ordered: 10/22/2021 End: 10-22-2022 Echocardiography ECHO Cardiology SEVERIANO Nonrheumatic aortic valve stenosis Bicuspid aortic valve LVH (left ventricular hypertrophy) 1 Occurrences starting 10/22/2021 until 10/22/2022 [facility] Work Phone: Comment on above: 1 Occurrences starti ng 10/22/2021 until 10/22/2022 End: 05-24-2023 Echocardiography ECHO Cardiology Routine Bicuspid aortic valve Nonrheumatic aortic valve stenosis 1 Occurrences starting 05/23/2022 until 05/24/2023 [facility] Work Phone: Comment on above: 1 Occurrences starti ng 05/23/2022 until 05/24/2023 Erythrocyte mean corpuscular volume determination [facility] Glucose [Mass/volume ] in Serum or Plasma [facility] Hematocrit [Volume Fraction] of Blood [facility] Hemoglobin [Mass/vol ume] in Blood [facility] Hemoglobin A1c/Hemoglobin.total in Blood [facility] Hemoglobin.gastroint estina l.lower [Presence] in Stool by Immunoassay IMMUNOCHEMICAL FECAL OCCULT BLOOD TEST Lab Routine Screening for colon cancer Ordered: 02/08/2024 [facility] Comment on above: Ordered: 02/08/2024 Legionella pneumophi la Ag [Presence] in Urine [facility] Leukocytes [#/volume ] in Blood [facility] End: 12-08-2023 LUNG DIFFUSION CAPACITY (DLCO) LUNG DIFFUSION CAPACITY (DLCO) PFT Routine Encounter for preprocedural cardiovascular examination Sleep apnea, unspecified type Bicuspid aortic valve Nonrheumatic aortic valve stenosis Preoperative testing 1 Occurrences starting 11/08/2022 until 12/08/2023 [facility] Work Phone: Comment on above: 1 Occurrences starti ng 11/08/2022 until 12/08/2023 End: 12-08-2023 LUNG VOLUMES LUNG VOLUMES PFT Routine Encounter for preprocedural cardiovascular examination Sleep apnea, unspecified type Bicuspid aortic valve Nonrheumatic aortic valve stenosis Preoperative testing 1 Occurrences starting 11/08/2022 until 12/08/2023 [facility] Work Phone: Comment on above: 1 Occurrences starti ng 11/08/2022 until 12/08/2023 Mean corpuscular hemoglobin concentration determination [facility] Mean corpuscular hemoglobin determination [facility] Measurement of renal function [facility] End: 11-24-2023 Mri brain brain stem w/o contrast material MRI BRAIN WO IVCON Radiology Routine Vision changes Headache, unspecified headache type 1 Occurrences starting 10/25/2022 until 11/24/2023 [facility] Work Phone: Comment on above: 1 Occurrences starti ng 10/25/2022 until 11/24/2023 Patient Education [facility] Work Phone: Patient referral [facility] Work Phone: Platelets [#/volume] in Blood [facility] Potassium [Moles/vol ume] in Serum or Plasma [facility] End: 12-06-2023 PVR ANK PRESS [facility] PVR ANK PRESS [facility] Vascular Lab Routine Diminished pulses in lower extremity Diabetic mononeuropathy associated with diabetes mellitus due to underlying condition (HCC) 1 Occurrences starting 12/05/2022 until 12/06/2023 [facility] Work Phone: Comment on above: 1 Occurrences starti ng 12/05/2022 until 12/06/2023 End: 11-24-2023 Radiologic exam chest 2 views XR CHEST 2V FRONTAL/LAT Radiology Routine Bacterial pneumonia 1 Occurrences starting 10/25/2022 until 11/24/2023 [facility] Work Phone: Comment on above: 1 Occurrences starti ng 10/25/2022 until 11/24/2023 Radiologic exam ches t 2 views XR CHEST 2V FRONTAL/LAT Radiology Routine Bacterial pneumonia 10/25/2022 3:50 PM EDT [facility] Work Phone: Red blood cell count [facility] Red cell distributio n width determination [facility] Removal impacted cer umen irrigation/lvg unilat AMBULATORY EAR LAVAGE/IRRIGATION Procedures Routine Impacted cerumen of left ear Ordered: 08/07/2024 [facility] Comment on above: Ordered: 08/07/2024 Sodium [Moles/volume ] in Serum or Plasma [facility] End: 12-08-2023 SPIROMETRY BASELINE ONLY SPIROMETRY BASELINE ONLY PFT Routine Encounter for preprocedural cardiovascular examination Sleep apnea, unspecified type Bicuspid aortic valve Nonrheumatic aortic valve stenosis Preoperative testing 1 Occurrences starting 11/08/2022 until 12/08/2023 [facility] Work Phone: Comment on above: 1 Occurrences starti ng 11/08/2022 until 12/08/2023 Urea nitrogen [Mass/volume] in Serum or Plasma [facility] End: 08-07-2025 US Carotid arteries - bilateral US CAROTID ARTERIES [facility] Vascular Lab Routine Arterial ischemic stroke, MCA (middle cerebral artery), left, acute (HCC) Bilateral carotid artery stenosis 1 Occurrences starting 08/07/2024 until 08/07/2025 [facility] Comment on above: 1 Occurrences starti ng 08/07/2024 until 08/07/2025 End: 12-21-2023 US CAROTID ARTERIES [facility] US CAROTID ARTERIES [facility] Vascular Lab Routine Preoperative testing Encounter for preprocedural cardiovascular examination Severe aortic stenosis 1 Occurrences starting 12/21/2022 until 12/21/2023 [facility] Work Phone: Comment on above: 1 Occurrences starti ng 12/21/2022 until 12/21/2023 End: 08-07-2025 US.doppler Extremity arteries - bilateral for physiologic artery study PVR ANK PRESS [facility] Vascular Lab Routine Peripheral vascular disease 1 Occurrences starting 08/07/2024 until 08/07/2025 [facility] Work Phone: Comment on above: 1 Occurrences starti ng 08/07/2024 until 08/07/2025 End: 06-20-2024 XR Abdomen Supine and Upright XR ABDOMEN 1V SUPINE Radiology Routine Small bowel obstruction (HCC) 1 Occurrences starting 05/22/2023 until 06/20/2024 [facility] Work Phone: Comment on above: 1 Occurrences starti ng 05/22/2023 until 06/20/2024 XR Abdomen Supine an d Upright XR ABDOMEN 1V SUPINE Radiology Routine Small bowel obstruction (HCC) 05/22/2023 11:02 AM EDT [facility] Work Phone: End: 01-04-2024 XR FOOT GENERAL 3V AP/LAT/OBL RIGHT XR FOOT GENERAL 3V AP/LAT/OBL RIGHT Radiology Routine Venous insufficiency Blister 1 Occurrences starting 12/05/2022 until 01/04/2024 [facility] Work Phone: Comment on above: 1 Occurrences starti ng 12/05/2022 until 01/04/2024 XR FOOT GENERAL 3V AP/LAT/OBL RIGHT XR FOOT GENERAL 3V AP/LAT/OBL RIGHT Radiology Routine Venous insufficiency Blister 12/05/2022 4:52 PM EDT [facility] Work Phone: End: 01-04-2024 XR TIBIA FIBULA 2V AP/LAT RIGHT XR TIBIA FIBULA 2V AP/LAT RIGHT Radiology Routine Venous insufficiency 1 Occurrences starting 12/05/2022 until 01/04/2024 [facility] Work Phone: Comment on above: 1 Occurrences starti ng 12/05/2022 until 01/04/2024 XR TIBIA FIBULA 2V A P/LAT RIGHT XR TIBIA FIBULA 2V AP/LAT RIGHT Radiology Routine Venous insufficiency 12/05/2022 4:52 PM EDT [facility] Work Phone: [facility] CT & VAS [facility] Immunizations Immunization Date Immunization Notes Care Provider Re pabon 02-08-2024 COVID-19 vaccine, ag e 12+ yr ([employer]) Margi Suppan TECHNICAL ACCOUNT REPRESENTATIVE.GUEST HISTORY CLERK Work Phone: [facility] 02-08-2024 influenza, seasonal, injectable Margi Suppan TECHNICAL ACCOUNT REPRESENTATIVE.GUEST HISTORY CLERK Work Phone: [facility] 02-08-2024 influenza virus vaccine, unspecified formulation Alyson Arthur MD Work Phone: [facility] 02-27-2023 influenza virus vaccine, unspecified formulation MALIA BECERRIL DO [facility] 02-27-2023 influenza, injectabl e, quadrivalent, contains preservative [facility] Work Phone: [facility] 05-20-2022 pneumococcal Conjuga te, unspecified formulation Alyson Arthur MD Work Phone: [facility] Work Phone: 05-20-2022 COVID-19 booster vaccine, age 12+ yr, bivalent ([facility]) Alyson Arthur MD Work Phone: [facility] 05-20-2022 pneumococcal (PCV20) vaccine, 20 valent (PREVNAR 20) Alyson Arthur MD Work Phone: [facility] 05-20-2022 pneumococcal 20-adelaide nt conjugate vaccine MALIA BECERRIL DO [facility] 10-22-2020 Covid (Pfizer) [facility] 09-17-2020 Covid (Pfizer) [facility] Comment on above: Result Comment: 2023: [id number] 11-06-2017 influenza, injectabl e, quadrivalent, contains preservative Alyson Arthur MD Work Phone: [facility] 11-06-2017 influenza, injectabl e, quadrivalent, preservative free Dr. Alyson Arthur Work Phone: [facility] 11-06-2017 influenza, seasonal, injectable [facility] 11-06-2017 influenza virus vaccine, unspecified formulation Alyson Arthur MD Work Phone: [facility] 11-11-2016 influenza virus vaccine, unspecified formulation MALIA BECERRIL DO [facility] 11-11-2016 influenza, injectabl e, quadrivalent, contains preservative Alyson Arthur MD Work Phone: [facility] 11-11-2016 influenza, injectabl e, quadrivalent, preservative free Dr. Alyson Arthur Work Phone: [facility] 11-11-2016 influenza, seasonal, injectable [facility] 11-11-2015 influenza virus vaccine, unspecified formulation MALIA BECERRIL DO [facility] 11-11-2015 influenza, injectabl e, quadrivalent, contains preservative Alyson Arthur MD Work Phone: [facility] 11-11-2015 influenza, injectabl e, quadrivalent, preservative free Dr. Alyson Arthur Work Phone: [facility] 11-11-2015 influenza, seasonal, injectable [facility] 11-26-2013 influenza, seasonal, injectable Alyson Arthur MD Work Phone: [facility] 11-23-2013 influenza virus vaccine, unspecified formulation MALIA BECERRIL [facility] 11-23-2013 influenza, injectabl e, quadrivalent, preservative free Dr. Alyson Arthur Work Phone: [facility] 11-23-2013 influenza, seasonal, injectable [facility] 11-23-2013 influenza, seasonal, injectable, preservative free [facility] Work Phone: [facility] 11-30-2012 influenza virus vaccine, unspecified formulation Alyson Arthur MD Work Phone: [facility] 11-20-2012 pneumococcal polysaccharide vaccine, 23 valent Alyson Arthur MD Work Phone: [facility] 11-20-2012 Pneumococcal Vaccine [facility] Work Phone: 11-20-2012 pneumococcal vaccine , unspecified formulation [facility] 11-01-2010 pneumococcal polysaccharide vaccine, 23 valent Alyson Arthur MD Work Phone: [facility] Work Phone: Payers Date Payer Category Payer Self-pay [id number] 2023 Medicare (Managed Care) [employer] [id number] 2023 Medicare [id number] 2023 Medicare [id number] 2022 Medicare [id number] 2019 Medicaid [employer] [id number] 2019-Present [phone] [address] [place] [address] Medicaid [id number] 2019 Medicaid [id number] 2019 Unknown ANTHEM BLUE CROS S AND BLUE SHIELD ANTHEM MEDIBLUE HMO [id number] 2019-Present [phone] [address] [place] [address] HMO [id number] 2019 Unknown [id number] 2015 Medicaid [id number] 2015 Unknown [id number] 1961 Unknown [id number] 1961 Unknown [id number] 1961 Unknown [id number] 1961 Unknown [id number] Medicare [id number] Private Health [facility] 17 [id number] Unknown [id number] Unknown [id number] Unknown [id number] Unknown [id number] Unknown [id number] Social History Date Type Detail Facility Start: 12-17-2010 End: 09-09-2024 Tobacco smoking status HIIS Smokes tobacco daily [facility] History of tobacco use Cigarette Smoker [facility] Start: 12-17-2010 End: 06-17-2022 Cigarettes smoked current (pack per day) - Reported 0.75 [facility] Work Phone: Start: 12-17-2010 End: 09-09-2024 Tobacco use and exposure Smokeless tobacco non-user [facility] Start: 12-13-2020 End: 09-09-2024 Alcohol intake Current drinker of alcohol (finding) [facility] Start: 04-27-2020 History SDOH Alcohol Comment Rarely. 2 beers a year [facility] Start: 01-02-2019 End: 10-18-2021 Tobacco Comment less than a pack/day. [facility] Start: 1960 Sex Assigned At Not on file [facility] Start: 03-16-2020 End: 10-22-2021 Exposure to SARS-CoV-2 (event) Not sure [facility] Start: 10-30-2020 End: 06-22-2023 Tobacco smoking status NHIS Unknown if ever smoked [facility] Start: 10-30-2020 None [facility] Start: 05-23-2020 With Family [facility] Start: 10-30-2020 Cigarettes [facility] Start: 1960 Sex Assigned At Male W [facility] Start: 06-17-2022 End: 09-28-2022 Tobacco use panel [facility] Work Phone: Start: 01-15-2012 Adult Depression Screening Assessment 1 [facility] Work Phone: Start: 04-06-2023 Tobacco smoking status Never s moked tobacco (finding) [facility] Sex Assigned At Sex [facility] Start: 11-25-2011 Alcohol Comment Rarely. [facility] Medical Equipment Procedure Code Equipment Code Equipment Origin al Text Equipment Identifier Dates [id number], [id number], [id number], [id number], [id number], [id number], [id number], [id number], [id number], [id number] Start: 03-26-2020 End: 12-17-2024 Comment on above: TEST BLOOD SUGAR 1-2 TIMES DAILY Use one needle per d ose. 4per day. 4 Each once daily. Graft Hemashield [place] 28mm Straight Tube Woven 2 Velour Collagen 30cm - [id number] Start: 03-20-2023 Comment on above: Description: nonmeta llic Gilbert Thk1.65mm P tfe 4x.5in Cardiovascular Sterile - [id number] Start: 03-20-2023 Comment on above: Description: nonmeta llic Gilbert Thk1.65mm P tfe 4x.5in Cardiovascular Sterile - [id number] Start: 03-20-2023 Comment on above: Description: nonmeta llic Valve Aortic Epi c Plus Supra 27mm - [id number] Start: 03-20-2023 Goals Date Patient Goal Desired Activity /State Personal health goal Functional Status Date Assessment Result Facility 06-24-2023 Functional status Chair [facility] Work Phone: 05-20-2023 Functional Status None [facility] 05-20-2023 Functional Status Room check performed [facility] [place] 05-20-2023 Functional Status [facility] 05-20-2023 Functional Status [facility] 05-20-2023 Functional Status [facility] 05-19-2023 Functional [facility] Functional Status [facility] 05-19-2023 Functional Status [facility] 05-18-2023 Functional Status Nurse Safety [facility] [place] q2hrs Performed 7am-7pm [facility] 05-18-2023 Functional Status [facility] 05-18-2023 Functional Status [facility] 05-17-2023 Functional Status [facility] 05-17-2023 Functional Status Antiembolism S tocking Off/Removed bilateral knee high [facility] 05-17-2023 Functional Status [facility] 05-17-2023 Functional Status [facility] 05-17-2023 Functional Status 30 1 [facility] 05-17-2023 Functional Status [facility] 05-16-2023 Functional Status [facility] 05-16-2023 Functional Status [facility] 05-15-2023 Functional Status Pt has 2 daugh ters, son and son in law, along c who can help upon d/c. [facility] 05-14-2023 Functional Status 100 [facility] 05-13-2023 Functional Status Repositions self [facility] 05-12-2023 Functional Status Remains up in chair [facility] 05-11-2023 Functional Status [facility] 05-10-20[address] [facility] 05-08-2023 Functional Status Skin Care Prod uct Applied Protective barrier, Skin moisturizer [facility] 05-08-2023 Functional Status [facility] 05-07-2023 Functional Status Morning Snack Percent 1 00 [facility] 05-05-2023 Functional Status [facility] 05-03-2023 Functional Status Stair Railing Utilized Bilateral [facility] 05-03-2023 Functional Status [facility] 05-01-2023 Functional Status Orthotics, Dev ice Worn Per Schedule Yes [facility] 05-01-2023 Functional Status Ambulation in Room [facility] 05-01-2023 Functional Status [facility] 05-01-2023 Functional Status One assist [facility] 05-01-2023 Functional Status [facility] 04-30-2023 Functional Status [facility] 04-29-2023 Functional Status Sensory Deficits None A deepika [facility] 04-27-2023 Functional Status Up to Chair Re paddy up in chair [facility] 04-27-2023 Functional Status Bed alert on, Room check performed [facility] 04-27-2023 Functional Status [facility] 04-27-2023 Functional Status [facility] 04-27-2023 Functional Status Positioning Re positioned back [facility] 04-27-2023 Functional Status [facility] 04-27-2023 Functional Status Two assist [facility] 04-27-2023 Functional Status bilateral knee high applied/on [facility] 04-27-2023 Functional Status [facility] 04-27-2023 Functional Status [facility] 04-26-2023 Functional Status [facility] 04-26-2023 Functional Status [facility] 04-26-2023 Functional Status Pt has 2 daugh ters, son and son in law, along c who can help upon d/c. [facility] 04-26-2023 Functional Status [facility] 04-26-2023 Functional Status Activity Bruce tance Two assist [facility] 04-25-2023 Functional Status [facility] 04-25-2023 Functional Status Dinner Percent 35 [facility] 04-25-2023 Functional Status [facility] 04-25-2023 Functional Status [facility] 04-25-2023 Functional Status Linen Change Done [facility] 04-24-2023 Functional Status Valid Sammy Martinez Slip N/A [facility] 04-24-2023 Functional Status Refused [facility] 04-24-2023 Functional Status [facility] 04-23-2023 Functional Status [facility] 04-23-2023 Functional Status Transparent si licone dressing [facility] 04-23-2023 Functional Status Maintained [facility] 04-23-2023 Functional Status Room check performed [facility] 04-22-2023 Functional Status [facility] [facility] 04-22-2023 Functional Status Skin Care Prev entative Intervention(s) heel(s)s elevated [facility] 04-22-2023 Functional Status Nurse Safety C madison q2hrs Performed 7am-3pm [facility] 04-22-2023 Functional Status Lunch Percent 15 [facility] 04-22-2023 Functional Status Breakfast Percent 10 [facility] 04-22-2023 Functional Status [facility] [facility] 04-21-2023 Functional Status [facility] [facility] 04-21-2023 Functional Status Antiembolism S tocking Off/Removed bilateral knee high [facility] 04-20-2023 Functional Status [facility] 04-20-2023 Functional Status [facility] 04-20-2023 Functional Status [facility] 04-19-2023 Functional Status [facility] 04[facility]19-2023 Functional Status [facility] 04-19-2023 Functional Status [facility] 04-19-2023 Functional Status 4 [facility] 04-19-2023 Functional Status [facility] 04-18-2023 Functional Status [facility] 04-18-2023 Functional Status [facility] 04-18-2023 Functional Status Pt has 2 dahéctor ters, son and son in law, along c who can help upon d/c. [facility] 04-17-2023 Functional Status [facility] 04-17-2023 Functional Status [facility] 04-17-2023 Functional Status Activity Statu s ADL Awake, Lights dimmed, Up to bathroom, Watching TV, Other: sitting up in chair [facility] 04-16-2023 Functional Status [facility] 04-15-2023 Functional Status Foam dressing [facility] 04-15-2023 Functional Status [facility] 04-13-2023 Functional Status [facility] 04-12-2023 Functional Status Positioning Ot her: up in chair [facility] 04-11-2023 Functional Status [facility] 04-10-2023 Functional Status 1st floor bedr oom, 1st floor bathroom [facility] 04-08-2023 Functional Status [facility] 04-07-2023 Are you deaf, or do you have serious difficulty hearing No 04/07/2023 7:13 PM Priyanka Padilla RN No [facility] 04-07-2023 Are you blind, or do you have serious difficulty seeing, even when wearing glasses No 04/07/2023 7:13 PM Priyanka Padilla RN No [facility] 04-07-2023 Do you have serious difficulty walking or climbing stairs Yes 04/07/2023 7:13 PM Priyanka Padilla RN Yes [facility] 04-07-2023 Do you have difficul ty dressing or bathing Yes 04/07/2023 7:13 PM Priyanka Padilla RN Yes [facility] 04-07-2023 Because of a physica l, mental, or emotional condition, do you have difficulty doing errands alone such as visiting a physician's office or shopping Yes 04/07/2023 7:13 PM Priyanka Padilla RN Yes [facility] 10-11-2022 Functional status Ambulates;[facility] Work Phone: Mental Status Date Assessment Result Facility 06-24-2023 Cognitive function Voice/Name [facility] Work Phone: 05-20-2023 Mental Status Oriented x 4 [facility] 05-20-2023 Mental Status [facility] 05-19-2023 Mental Status [facility] 05-19-2023 Mental Status [facility] 04-27-2023 Mental Status Orientation Oriented x 4 [facility] 04-26-2023 Mental Status [facility] 04-26-2023 Mental Status [facility] 04-24-2023 Mental Status [facility] 04-22-2023 Mental Status Oriented x 4 [facility] 04-22-2023 Mental Status [facility] 04-21-2023 Mental Status [facility] 04-20-2023 Mental Status [facility] 04-07-2023 Because of a physica l, mental, or emotional condition, do you have serious difficulty concentrating, remembering, or making decisions Yes 04/07/2023 7:13 PM Priyanka Padilla RN Yes [facility] 10-11-2022 Cognitive function Voice/Name [facility] Work Phone: Clinical Notes 11-30-2012 to 12-04-2024 Carmen Leos - 10/03/2024 10:15 AM EDTTelephone Encounter - Opal Mccann RN - 09/27/2024 7:50 AM EDTTelephone Encounter - Opal Mccann RN - 09/27/2024 7:50 AM EDT Note Date & Type Note Facility 12-04-2024 Note HNO ID: [id number] Author: ?, ?, ? Service: ? Author Type: ? Type: Progress Notes Filed: 12/04/2024 10:35 Note Text: POPULATION HEALTH NAVIGATION OUTREACH Action/FYI Patient outreach for HCCs HM due; GAUDENCIO, [place], Flu, A1C, KED, AWV Spoke with patient. Pend labs. Will schedule wellness at visit next week. Sees OSH eye doctor but will need to schedule since not been in for awhile. Will discuss [place] with GLOBAL COMPENSATION MANAGER if it needs to be since the FOB was done last year. Patient believes he had flu shot done at [facility] but it is not on the HM. Dr. Arthur, Please approve these orders for the patient to be completed prior to their appointment. Additionally, feel free to place any other orders you deem necessary. Thank you! Pended Orders ID Status Description Pended By When Reason [id number] Pended HEMOGLOBIN A1C Carmen Leos 12/04/24 1026 [id number] Pended ALBUMIN/CREATININE RATIO, URINE Carmen Leos 12/04/24 1026 Reason for Outreach Care Gap/HCC or Scheduling Wellness Visits Care Gaps due: Medicare Annual Wellness Visit Colorectal Cancer Screening Diabetic Eye Exam HBA1C KED Flu Vaccine Patient Contacted: Spoke to patient/parent/or legal guardian Patient identified by name and : Yes Care Gap/HCC/Scheduling Wellness actions taken: Patient scheduled/pended orders: HBA1C KED 12/09/2024 in [facility] with ANGELA SCHMID - 3 month follow up, hcc gaps due, hm due (40min per CH) 12/17/2024 in [facility] with AMANDA VALENTE - Overdue f/u. kh 05/06/2025 in [place] [facility] with FRANKLIN ESPINAL - 6 month follow up 09/11/[address] with CT [facility] (I-STAT) - CT LUNG SCREENING 09/11/2025 in [facility] with AMAURI JO - [address] [place] [address] HCC related Updated Appointment Notes Navigation Signature: Carmen Granger December 04, 2024 10:16 AM [facility] 12-04-2024 Note Patient Outreach (DEJAN TNAV) JANKIKIEL GARCIA ([id number]) 1960 M Date Time Provider Department 12/04/24 ALYSON ARTHUR During your visit today, we recorded the following information about you: Carmen Leos 12/04/2024 10:35 AM Signed POPULATION HEALTH NAVIGATION OUTREACH Action/FYI Patient outreach for HCCs HM due; GAUDENCIO, [place], Flu, A1C, KED, AWV Spoke with patient. Pend labs. Will schedule wellness at visit next week. Sees OSH eye doctor but will need to schedule since not been in for awhile. Will discuss [place] with GLOBAL COMPENSATION MANAGER if it needs to be since the FOB was done last year. Patient believes he had flu shot done at [facility] but it is not on the HM. Dr. Arthur, Please approve these orders for the patient to be completed prior to their appointment. Additionally, feel free to place any other orders you deem necessary. Thank you! Pended Orders ID Status Description Pended By When Reason [id number] Pended HEMOGLOBIN A1C Carmen Leos 12/04/24 1026 [id number] Pended ALBUMIN/CREATININE RATIO, URINE Carmen Leos 12/04/24 1026 Reason for Outreach Care Gap/HCC or Scheduling Wellness Visits Care Gaps due: Medicare Annual Wellness Visit Colorectal Cancer Screening Diabetic Eye Exam HBA1C KED Flu Vaccine Patient Contacted: Spoke to patient/parent/or legal guardian Patient identified by name and : Yes Care Gap/HCC/Scheduling Wellness actions taken: Patient scheduled/pended orders: HBA1C KED 12/09/2024 in [facility] with ANGELA SCHMID - 3 month follow up, hcc gaps due, hm due (40min per CH) 12/17/2024 in [facility] with AMANDA VALENTE - Overdue f/u. kh 05/06/2025 in [place] [facility] with FRANKLIN ESPINAL - 6 month follow up 09/11/[address] [facility] with CT [facility] (I-STAT) - CT LUNG SCREENING 09/11/2025 in [facility] with AMAURI JO - [address] [facility] related Updated Appointment Notes Navigation Signature: Carmen Mckeon Bárbara December 04, 2024 10:16 AM Allergies As of Date: 12/04/2024 Noted Allergy Reaction IODINATED CONTRAST MEDIA 03/16/2023 8 - GI Upset 14 - Other: See Comments Comments: Hypotension, temporary SOB LISINOPRIL 12/01/2017 14 - Other: See Comments Comments: Hyperkalemia PENICILLINS 10/29/2010 2 - Rash FLONASE (FLUTICASONE PROPIONATE) 10/18/2021 14 - Other: See Comments Comments: Nose bleeds Date Reviewed: 11/05/2024 Reviewed by: Francisca Castillo OCCA - Fully Assessed Reason for Visit: Population Health Navigation Outreach [3910] Cmt: Eladio Nuñez Primary Visit Diagnosis:Type 2 diabetes mellitus with hyperglycemia, with long-term current use of insulin ([facility]) [E11.65, Z79.4] Order(s):HEMOGLOBIN A1C [IKQOB3G] Order #: [id number] FUTURE ALBUMIN/CREATININE RATIO, URINE [SQUACR] Order #: [id number] FUTURE Prescriptions as of 12/04/2024 - XTAMPZA ER 13.5 mg CSpT Take 1 capsule Twice a day for 28 Days - docusate sodium (COLACE) 100 mg capsule Take 1 capsule by mouth two times a day. - pregabalin (LYRICA) 100 mg capsule Take 1 capsule by mouth once daily for 180 days. - pregablin (LYRICA) 200 mg capsule Take 1 capsule by mouth daily at bedtime for 180 days. - pantoprazole DR (PROTONIX) 40 mg tablet Take 1 tablet by mouth daily before breakfast. Take on empty stomach, 1/2 hr before meal. - metoprolol tartrate 37.5 mg tab Take 1 tablet by mouth every 12 hours. - traZODone (DESYREL) 50 mg tablet Take 1 tablet by mouth daily at bedtime. - insulin aspart U-100 (NOVOLOG FLEXPEN U-100 INSULIN) 100 unit/mL (3 mL) pen Use for sliding scale as directed with meals Blood sugar 0-150, no coverage; 151- 200, 2 units; 201- 250 4 units; 251- 300 6 units 301- 350 8 units, > 351 10 units - bumetanide (BUMEX) 1 mg tablet Take 2 tablets by mouth two times a day. - insulin glargine (LANTUS SOLOSTAR U-100 INSULIN) 100 unit/mL (3 mL) Inject 22 Units subcutaneously daily at bedtime. - albuterol HFA (PROVENTIL HFA, VENTOLIN HFA) 90 mcg/actuation inhaler Inhale 2 puffs as instructed every 4 hours as needed for wheezing/shortness of breath. - ammonium lactate (LAC-HYDRIN) 12 % cream Apply to affected area as needed for dry skin. - apixaban (ELIQUIS) 5 mg tab(s) Take 1 tablet by mouth two times a day. - flash glucose scanning reader (Camile[employer] HeelsSTYLE ANAHI 2 READER) DMII, insulin requiring. Testing 3-5 times q day - amLODIPine (NORVASC) 5 mg tablet Take 1 tablet by mouth once daily. - atorvastatin (LIPITOR) 10 mg tablet Take 1 tablet by mouth daily at bedtime. - budesonide-formoterol (SYMBICORT) 80-4.5 mcg/actuation inhaler Inhale 2 Puffs as instructed two times a day. - flash glucose sensor (FREESTYLE ANAHI 2 SENSOR) kit DMII, insulin requiring. Testing 3-5 times q day - ipratropium-albuterol (DUONEB) 0.5 mg-3 mg(2.5 mg base)/3 mL nebu Inhale 3 mL as instructed four times daily. - in (more content not included)... [facility] 11-13-2024 Note HNO ID: [id number] Author: MAKENZIE OGDEN RPh Service: ? Author Type: Pharmacist Type: Progress Notes Filed: 11/13/2024 14:55 Note Text: Primary Care Pharmacy Panel Management This patient has been identified through Specialty Integration/Value-Based Operations Diabetes Registry Review by the primary care pharmacy team. Consult to Pharmacy order pended to PCP for consideration and signature.Patient is scheduled to see PCP on 11/30/24. Will likely get repeat labs then. PharmD will send msg to PCP before the visit to suggest offering PharmD referral to pt if appropriate at that time. Makenzie Ogden RPh [facility] 11-13-2024 Note Patient Outreach (PH MEWO) KIEL CATHERINE ([id number]) 1960 M Date Time Provider Department 11/13/24 MAKENZIE OGDEN PHMEWO During your visit today, we recorded the following information about you: Makenzie Ogden RPh 11/13/2024 2:55 PM Signed Primary Care Pharmacy Panel Management This patient has been identified through Specialty Integration/Value-Based Operations Diabetes Registry Review by the primary care pharmacy team. Consult to Pharmacy order pended to PCP for consideration and signature.Patient is scheduled to see PCP on 11/30/24. Will likely get repeat labs then. PharmD will send msg to PCP before the visit to suggest offering PharmD referral to pt if appropriate at that time. Makenzie Ogden martha Allergies As of Date: 11/13/2024 Noted Allergy Reaction IODINATED CONTRAST MEDIA 03/16/2023 8 - GI Upset 14 - Other: See Comments Comments: Hypotension, temporary SOB LISINOPRIL 12/01/2017 14 - Other: See Comments Comments: Hyperkalemia PENICILLINS 10/29/2010 2 - Rash FLONASE (FLUTICASONE PROPIONATE) 10/18/2021 14 - Other: See Comments Comments: Nose bleeds Date Reviewed: 11/05/2024 Reviewed by: Francisca Castillo OCCA - Fully Assessed Prescriptions as of 12/04/2024 - XTAMPZA ER 13.5 mg CSpT Take 1 capsule Twice a day for 28 Days - docusate sodium (COLACE) 100 mg capsule Take 1 capsule by mouth two times a day. - pregabalin (LYRICA) 100 mg capsule Take 1 capsule by mouth once daily for 180 days. - pregablin (LYRICA) 200 mg capsule Take 1 capsule by mouth daily at bedtime for 180 days. - pantoprazole DR (PROTONIX) 40 mg tablet Take 1 tablet by mouth daily before breakfast. Take on empty stomach, 1/2 hr before meal. - metoprolol tartrate 37.5 mg tab Take 1 tablet by mouth every 12 hours. - traZODone (DESYREL) 50 mg tablet Take 1 tablet by mouth daily at bedtime. - insulin aspart U-100 (NOVOLOG FLEXPEN U-100 INSULIN) 100 unit/mL (3 mL) pen Use for sliding scale as directed with meals Blood sugar 0-150, no coverage; 151- 200, 2 units; 201- 250 4 units; 251- 300 6 units 301- 350 8 units, > 351 10 units - bumetanide (BUMEX) 1 mg tablet Take 2 tablets by mouth two times a day. - insulin glargine (LANTUS SOLOSTAR U-100 INSULIN) 100 unit/mL (3 mL) Inject 22 Units subcutaneously daily at bedtime. - albuterol HFA (PROVENTIL HFA, VENTOLIN HFA) 90 mcg/actuation inhaler Inhale 2 puffs as instructed every 4 hours as needed for wheezing/shortness of breath. - ammonium lactate (LAC-HYDRIN) 12 % cream Apply to affected area as needed for dry skin. - apixaban (ELIQUIS) 5 mg tab(s) Take 1 tablet by mouth two times a day. - flash glucose scanning reader ([place]ile[employer] HeelsSTYLE ANAHI 2 READER) DMII, insulin requiring. Testing 3-5 times q day - amLODIPine (NORVASC) 5 mg tablet Take 1 tablet by mouth once daily. - atorvastatin (LIPITOR) 10 mg tablet Take 1 tablet by mouth daily at bedtime. - budesonide-formoterol (SYMBICORT) 80-4.5 mcg/actuation inhaler Inhale 2 Puffs as instructed two times a day. - flash glucose sensor (FREESTYLE ANAHI 2 SENSOR) kit DMII, insulin requiring. Testing 3-5 times q day - ipratropium-albuterol (DUONEB) 0.5 mg-3 mg(2.5 mg base)/3 mL nebu Inhale 3 mL as instructed four times daily. - insulin needles, DISPOSABLE, (PEN NEEDLE) 31 gauge x 5/16 Use one needle per dose. 4per day. - MULTIVITAMIN-FERROUS FUMARATE-FOLIC ACID 18 MG-400 MCG TABLET Take 1 tablet by mouth daily with breakfast. - Melatonin 5 mg cap Take by mouth. - acetaminophen (TYLENOL) 650 mg/20.3 mL soln 20.3 mL by ORAL/FEEDING TUBE route every 4 hours as needed for pain. Do not exceed 5 doses in 24 hours. - aspirin 81 mg chewable tablet 1 tablet by CORPAK route once daily. - magnesium hydroxide (MOM) 400 mg/5 mL suspension 30 mL by CORPAK route every 6 hours as needed. Meds Comments as of 04/29/2014: 04/29/14 - Patient states he is on a 50 mg pain patch but does not know the name. [facility] [place] [facility] Problem List As Of Date 11/13/2024 Noted Resolved Restrictive lung disease [J98.4] 11/12/2010 MANISH on CPAP [G47.33] 11/09/2012 Bicuspid aortic valve (HCC) [Q23.81] 11/09/2012 Controlled type 2 diabetes mellitus with diabet*11/09/2012 Hyperlipidemia [E78.5] 11/09/2012 Hypertension [I10] 11/09/2012 DDD (degenerative disc disease), lumbar [M51.36*11/09/2012 Bipolar 1 disorder (HCC) [F31.9] 11/09/2012 Morbid obesity with BMI of 50.0-59.9, adult (HC*11/09/2012 LVH (left ventricular hypertrophy) [I51.7] Atrial septal defect and mitral stenosis [Q21.1* 11/30/2012 Chronic bronchitis, simple [J41.0] 12/07/2012 Hypogonadism male [E29.1] 01/04/2013 Ulnar neuropathy of left upper extremity [G56.2*01/07/2013 Tendinitis of left wrist [M77.8] 05/14/2013 05/20/2022 Microalbuminuria [R80.9] 08/03/2018 Severe aortic stenosis [I35.0] 08/10/2018 Nocturnal oxygen desaturation [G47.34] 10/23/2021 GERD wit (more content not included)... [facility] 11-05-2024 Note HNO ID: [id number] Author: FRANKLIN ESPINAL, DO Service: ? Author Type: Physician Type: Progress Notes Filed: 11/05/2024 15:24 Note Text: Heart, Vascular and Thoracic [place] DEPARTMENT OF VASCULAR SURGERY OUTPATIENT VISIT DATE November 05, 2024 OUTPATIENT VISIT TYPE CONSULTATION SERVICE DATE: 11/05/2024 SERVICE TIME: 1:42 PM PRIMARY CARE PHYSICIAN: Alyson Arthur MD REFERRING PROVIDER: Angela Schmid [id number] [facility] [id number] Consult requested for an opinion regarding the evaluation and treatment of the above. My final impression and recommendations will be communicated back to the requesting physician by way of the shared medical record or letter via US mail. CHIEF COMPLAINT: Peripheral arterial disease, carotid artery stenosis HISTORY OF PRESENT ILLNESS: Vascular consultation at the request of Dr. Angela Schmid. A copy of this consultation note will be provided to the requesting physician by way of shared Medical record or letter to requesting physician via US mail. Mr. Catherine is a 64 year old male who is seen today for peripheral arterial disease and carotid artery stenosis. He has a history of aortic valve surgery in March 2023. He was found to have right arm and leg weakness. He is in a wheelchair. Denies claudication. Does admit to bilateral lower extremity burning pain in his feet. He still has limited function of his right side after stroke. PAST MEDICAL HISTORY Diagnosis Date Acute ischemic left MCA stroke ([facility]) 03/22/2023 Anxiety Aortic valve stenosis, nonrheumatic Atrial septal defect and mitral stenosis ([facility]) Bicuspid aortic valve ([facility]) Bipolar 1 disorder ([facility]) Chronic obstructive pulmonary disease (COPD) ([facility]) Coronary artery disease Degenerative disc disease sees Dr. Sellers Diabetic neuropathy ([facility]) DM (diabetes mellitus) ([facility]) HTN (hypertension) Hyperkalemia Hyperlipidemia Hypogonadism male LVH (left ventricular hypertrophy) Morbid obesity ([facility]) MANISH on CPAP Pain management Dr. Sellers PAST SURGICAL HISTORY Procedure Laterality Date BACK SURGERY HX fusion- lumbar CARPAL TUNNEL both HEART SURGERY HX 03/20/2023 S/p 03/20/2023 AVR (27 Epic plus) and Ascending repair (28 hemishield) PAST SURGICAL HISTORY OF left shouder surgery PAST SURGICAL HISTORY OF nasal passages clearing for sleep apnea PAST SURGICAL HISTORY OF 02/13/1981 ORIF right ankle PAST SURGICAL HISTORY OF 04/03/2013 left ulnar nerve decompression SOCIAL HISTORY: SOCIAL HISTORY[1] FAMILY HISTORY Problem Relation Age of Onset Diabetes Father 2011 with pneumonia other (Dementia) Father Heart Mother CABG 4. Diabetes Sister Ischemic Heart Disease Brother other (Myocardial infarc) Brother Fatal [place] No Ocular Disease No Family History MEDICATIONS: XTAMPZA ER 13.5 mg CSpT Take 1 capsule Twice a day for 28 Days docusate sodium (COLACE) 100 mg capsule Take 1 capsule by mouth two times a day. pregabalin (LYRICA) 100 mg capsule Take 1 capsule by mouth once daily for 180 days. pregablin (LYRICA) 200 mg capsule Take 1 capsule by mouth daily at bedtime for [address] (PROTONIX) 40 mg tablet Take 1 tablet by mouth daily before breakfast. Take on empty stomach, 1/2 hr before meal. metoprolol tartrate 37.5 mg tab Take 1 tablet by mouth every 12 hours. traZODone (DESYREL) 50 mg tablet Take 1 tablet by mouth daily at bedtime. insulin aspart U-100 (NOVOLOG FLEXPEN U-100 INSULIN) 100 unit/mL (3 mL) pen Use for sliding scale as directed with meals Blood sugar 0-150, no coverage; 151- 200, 2 units; 201- 250 4 units; 251- 300 6 units 301- 350 8 units, > 351 10 units bumetanide (BUMEX) 1 mg tablet Take 2 tablets by mouth two times a day. insulin glargine (LANTUS SOLOSTAR U-100 INSULIN) 100 unit/mL (3 mL) Inject 22 Units subcutaneously daily at bedtime. albuterol HFA (PROVENTIL HFA, VENTOLIN HFA) 90 mcg/actuation inhaler Inhale 2 puffs as instructed every 4 hours as needed for wheezing/shortness of breath. ammonium lactate (LAC-HYDRIN) 12 % cream Apply to affected area as needed for dry skin. apixaban (ELIQUIS) 5 mg tab(s) Take 1 tablet by mouth two times a day. flash glucose scanning reader (FREESTYLE ANAHI 2 READER) DMII, insulin requiring. Testing 3-5 times q day amLODIPine (NORVASC) 5 mg tablet Take 1 tablet by mouth once daily. atorvastatin (LIPITOR) 10 mg tablet Take 1 tablet by mouth daily at bedtime. budesonide-formoterol (SYMBICORT) 80-4.5 mcg/actuation inhaler Inhale 2 Puffs as instructed two times a day. flash glucose sensor (FREESTYLE ANAHI 2 SENSOR) kit DMII, insulin requiring. Testing 3-5 times q day insulin needles, DISPOSABLE, (PEN NEEDLE) 31 gauge x 5/16 Use one needle per dose. 4per day. MULTIVITAMIN-FERROUS FUMARATE-FOLIC ACID 18 MG-400 MCG TABLET Take 1 tablet by mouth daily with breakfast. Melatonin 5 mg cap Take by mouth. acetaminophen (TYLENOL) 650 mg/20.3 mL mattie (more content not included)... [facility] 11-04-2024 Note HNO ID: [id number] Author: ?, ?, ? Service: ? Author Type: ? Type: Progress Notes Filed: 11/04/2024 09:34 Note Text: POPULATION HEALTH NAVIGATION OUTREACH Action/FYI Patient outreach for HCCs Hm due; colo, flu AWV, A1c, ked, GAUDENCIO ( done at OSH). Lvm and sent mcm to schedule. Reason for Outreach Care Gap/HCC or Scheduling Wellness Visits Care Gaps due: Medicare Annual Wellness Visit Colorectal Cancer Screening HBA1C KED Flu Vaccine Patient Contacted: Unable or unnecessary to reach patient: Left message BlockScore message sent HCC related Navigation Signature: Carmen Granger November 04, 2024 9:30 AM [facility] 11-04-2024 Note Patient Outreach (NE TNAV) KIEL CATHERINE ([id number]) 1960 Date Time Provider Department 11/04/24 ALYSON ARTHUR During your visit today, we recorded the following information about you: Carmen Leos 11/04/2024 9:34 AM Signed POPULATION HEALTH NAVIGATION OUTREACH Action/FYI Patient outreach for HCCs Hm due; colo, flu AWV, A1c, ked, GAUDENCIO ( done at OSH). Lvm and sent mcm to schedule. Reason for Outreach Care Gap/HCC or Scheduling Wellness Visits Care Gaps due: Medicare Annual Wellness Visit Colorectal Cancer Screening HBA1C KED Flu Vaccine Patient Contacted: Unable or unnecessary to reach patient: Left message BlockScore message sent HCC related Navigation Signature: Carmen Granger November 04, 2024 9:30 AM Allergies As of Date: 11/04/2024 Noted Allergy Reaction IODINATED CONTRAST MEDIA 03/16/2023 8 - GI Upset 14 - Other: See Comments Comments: Hypotension, temporary SOB LISINOPRIL 12/01/2017 14 - Other: See Comments Comments: Hyperkalemia PENICILLINS 10/29/2010 2 - Rash FLONASE (FLUTICASONE PROPIONATE) 10/18/2021 14 - Other: See Comments Comments: Nose bleeds Date Reviewed: 09/09/2024 Reviewed by: Amauri Jo APRN.GUEST HISTORY CLERK - Fully Assessed Reason for Visit: Population Health Navigation Outreach [3910] Cmt: Eladio Nuñez Prescriptions as of 11/04/2024 - docusate sodium (COLACE) 100 mg capsule Take 1 capsule by mouth two times a day. - pregabalin (LYRICA) 100 mg capsule Take 1 capsule by mouth once daily for 180 days. - pregablin (LYRICA) 200 mg capsule Take 1 capsule by mouth daily at bedtime for 180 days. - pantoprazole DR (PROTONIX) 40 mg tablet Take 1 tablet by mouth daily before breakfast. Take on empty stomach, 1/2 hr before meal. - metoprolol tartrate 37.5 mg tab Take 1 tablet by mouth every 12 hours. - traZODone (DESYREL) 50 mg tablet Take 1 tablet by mouth daily at bedtime. - insulin aspart U-100 (NOVOLOG FLEXPEN U-100 INSULIN) 100 unit/mL (3 mL) pen Use for sliding scale as directed with meals Blood sugar 0-150, no coverage; 151- 200, 2 units; 201- 250 4 units; 251- 300 6 units 301- 350 8 units, > 351 10 units - bumetanide (BUMEX) 1 mg tablet Take 2 tablets by mouth two times a day. - insulin glargine (LANTUS SOLOSTAR U-100 INSULIN) 100 unit/mL (3 mL) Inject 22 Units subcutaneously daily at bedtime. - albuterol HFA (PROVENTIL HFA, VENTOLIN HFA) 90 mcg/actuation inhaler Inhale 2 puffs as instructed every 4 hours as needed for wheezing/shortness of breath. - ammonium lactate (LAC-HYDRIN) 12 % cream Apply to affected area as needed for dry skin. - apixaban (ELIQUIS) 5 mg tab(s) Take 1 tablet by mouth two times a day. - flash glucose scanning reader (FREESTYLE ANAHI 2 READER) DMII, insulin requiring. Testing 3-5 times q day - amLODIPine (NORVASC) 5 mg tablet Take 1 tablet by mouth once daily. - atorvastatin (LIPITOR) 10 mg tablet Take 1 tablet by mouth daily at bedtime. - budesonide-formoterol (SYMBICORT) 80-4.5 mcg/actuation inhaler Inhale 2 Puffs as instructed two times a day. - flash glucose sensor (FREESTYLE ANAHI 2 SENSOR) kit DMII, insulin requiring. Testing 3-5 times q day - ipratropium-albuterol (DUONEB) 0.5 mg-3 mg(2.5 mg base)/3 mL nebu Inhale 3 mL as instructed four times daily. - insulin needles, DISPOSABLE, (PEN NEEDLE) 31 gauge x 5/16 Use one needle per dose. 4per day. - MULTIVITAMIN-FERROUS FUMARATE-FOLIC ACID 18 MG-400 MCG TABLET Take 1 tablet by mouth daily with breakfast. - Melatonin 5 mg cap Take by mouth. - acetaminophen (TYLENOL) 650 mg/20.3 mL soln 20.3 mL by ORAL/FEEDING TUBE route every 4 hours as needed for pain. Do not exceed 5 doses in 24 hours. - aspirin 81 mg chewable tablet 1 tablet by CORPAK route once daily. - magnesium hydroxide (MOM) 400 mg/5 mL suspension 30 mL by CORPAK route every 6 hours as needed. Meds Comments as of 04/29/2014: 04/29/14 - Patient states he is on a 50 mg pain patch but does not know the name. Nitza Guthrie Ma Problem List As Of Date 11/04/2024 Noted Resolved Restrictive lung disease [J98.4] 11/12/2010 MANISH on CPAP [G47.33] 11/09/2012 Bicuspid aortic valve (HCC) [Q23.81] 11/09/2012 Controlled type 2 diabetes mellitus with diabet*11/09/2012 Hyperlipidemia [E78.5] 11/09/2012 Hypertension [I10] 11/09/2012 DDD (degenerative disc disease), lumbar [M51.36*11/09/2012 Bipolar 1 disorder (HCC) [F31.9] 11/09/2012 Morbid obesity with BMI of 50.0-59.9, adult (HC*11/09/2012 LVH (left ventricular hypertrophy) [I51.7] Atrial septal defect and mitral stenosis [Q21.1* 11/30/2012 Chronic bronchitis, simple [J41.0] 12/07/2012 Hypogonadism male [E29.1] 01/04/2013 Ulnar neuropathy of left upper extremity [G56.2*01/07/2013 Tendinitis of left wrist [M77.8] 05/14/2013 05/20/2022 Microalbuminuria [R80.9] 08/03/[address] (more content not included)... [facility] 10-03-2024 Note HNO ID: [id number] Author: ?, ?, ? Service: ? Author Type: ? Type: Progress Notes Filed: 10/03/2024 10:18 Note Text: POPULATION HEALTH NAVIGATION OUTREACH Action/FYI Patient outreach for HCCs HM due; COLO, GAUDENCIO, AWV, KED LVM and sent mcm to schedule Reason for Outreach Care Gap/HCC or Scheduling Wellness Visits Care Gaps due: Medicare Annual Wellness Visit Colorectal Cancer Screening Diabetic Eye Exam KED Patient Contacted: Unable or unnecessary to reach patient: Left message MyChart message sent HCC related Navigation Signature: Carmen Granger October 03, 2024 10:15 AM [facility] 10-03-2024 History of Presen t illness Narrative POPULATION HEALTH NAVIGATION OUTREACH Action/FYI Patient outreach for HCCs HM due; COLO, GAUDENCIO, AWV, KED LVM and sent mcm to schedule Reason for Outreach Care Gap/HCC or Scheduling Wellness Visits Care Gaps due: Medicare Annual Wellness Visit Colorectal Cancer Screening Diabetic Eye Exam KED Patient Contacted: Unable or unnecessary to reach patient: Left message MyChart message sent HCC related Navigation Signature: Carmen Granger October 03, 2024 10:15 AM documented in this encounter [facility] 10-03-2024 Note Patient Outreach (NE TNBRENNAN) JANKIKIEL GARCIA ([id number]) 1960 M Date Time Provider Department 10/03/24 ALYSON ARTHUR During your visit today, we recorded the following information about you: Carmen Leos 10/03/2024 10:18 AM Signed POPULATION HEALTH NAVIGATION OUTREACH Action/FYI Patient outreach for HCCs HM due; COLO, GAUDENCIO, AWV, KED LVM and sent mcm to schedule Reason for Outreach Care Gap/HCC or Scheduling Wellness Visits Care Gaps due: Medicare Annual Wellness Visit Colorectal Cancer Screening Diabetic Eye Exam OCTAVIANO Patient Contacted: Unable or unnecessary to reach patient: Left message Intentive Communicationst message sent HCC related Navigation Signature: Carmen Granger October 03, 2024 10:15 AM Allergies As of Date: 10/03/2024 Noted Allergy Reaction IODINATED CONTRAST MEDIA 03/16/2023 8 - GI Upset 14 - Other: See Comments Comments: Hypotension, temporary SOB LISINOPRIL 12/01/2017 14 - Other: See Comments Comments: Hyperkalemia PENICILLINS 10/29/2010 2 - Rash FLONASE (FLUTICASONE PROPIONATE) 10/18/2021 14 - Other: See Comments Comments: Nose bleeds Date Reviewed: 09/09/2024 Reviewed by: Amauri Jo APRN.GUEST HISTORY CLERK - Fully Assessed Reason for Visit: Population Health Navigation Outreach [3910] Cmt: Eladio Nuñez Prescriptions as of 10/03/2024 - docusate sodium (COLACE) 100 mg capsule Take 1 capsule by mouth two times a day. - pregabalin (LYRICA) 100 mg capsule Take 1 capsule by mouth once daily for 180 days. - pregablin (LYRICA) 200 mg capsule Take 1 capsule by mouth daily at bedtime for 180 days. - pantoprazole DR (PROTONIX) 40 mg tablet Take 1 tablet by mouth daily before breakfast. Take on empty stomach, 1/2 hr before meal. - metoprolol tartrate 37.5 mg tab Take 1 tablet by mouth every 12 hours. - traZODone (DESYREL) 50 mg tablet Take 1 tablet by mouth daily at bedtime. - insulin aspart U-100 (NOVOLOG FLEXPEN U-100 INSULIN) 100 unit/mL (3 mL) pen Use for sliding scale as directed with meals Blood sugar 0-150, no coverage; 151- 200, 2 units; 201- 250 4 units; 251- 300 6 units 301- 350 8 units, > 351 10 units - bumetanide (BUMEX) 1 mg tablet Take 2 tablets by mouth two times a day. - insulin glargine (LANTUS SOLOSTAR U-100 INSULIN) 100 unit/mL (3 mL) Inject 22 Units subcutaneously daily at bedtime. - albuterol HFA (PROVENTIL HFA, VENTOLIN HFA) 90 mcg/actuation inhaler Inhale 2 puffs as instructed every 4 hours as needed for wheezing/shortness of breath. - ammonium lactate (LAC-HYDRIN) 12 % cream Apply to affected area as needed for dry skin. - apixaban (ELIQUIS) 5 mg tab(s) Take 1 tablet by mouth two times a day. - flash glucose scanning reader (FREESTYLE ANAHI 2 READER) DMII, insulin requiring. Testing 3-5 times q day - amLODIPine (NORVASC) 5 mg tablet Take 1 tablet by mouth once daily. - atorvastatin (LIPITOR) 10 mg tablet Take 1 tablet by mouth daily at bedtime. - budesonide-formoterol (SYMBICORT) 80-4.5 mcg/actuation inhaler Inhale 2 Puffs as instructed two times a day. - flash glucose sensor (FREESTYLE ANAHI 2 SENSOR) kit DMII, insulin requiring. Testing 3-5 times q day - ipratropium-albuterol (DUONEB) 0.5 mg-3 mg(2.5 mg base)/3 mL nebu Inhale 3 mL as instructed four times daily. - insulin needles, DISPOSABLE, (PEN NEEDLE) 31 gauge x 5/16 Use one needle per dose. 4per day. - MULTIVITAMIN-FERROUS FUMARATE-FOLIC ACID 18 MG-400 MCG TABLET Take 1 tablet by mouth daily with breakfast. - Melatonin 5 mg cap Take by mouth. - acetaminophen (TYLENOL) 650 mg/20.3 mL soln 20.3 mL by ORAL/FEEDING TUBE route every 4 hours as needed for pain. Do not exceed 5 doses in 24 hours. - aspirin 81 mg chewable tablet 1 tablet by CORPAK route once daily. - magnesium hydroxide (MOM) 400 mg/5 mL suspension 30 mL by CORPAK route every 6 hours as needed. Meds Comments as of 04/29/2014: 04/29/14 - Patient states he is on a 50 mg pain patch but does not know the name. Nitza Guthrie Ma Problem List As Of Date 10/03/2024 Noted Resolved Restrictive lung disease [J98.4] 11/12/2010 MANISH on CPAP [G47.33] 11/09/2012 Bicuspid aortic valve (HCC) [Q23.81] 11/09/2012 Controlled type 2 diabetes mellitus with diabet*11/09/2012 Hyperlipidemia [E78.5] 11/09/2012 Hypertension [I10] 11/09/2012 DDD (degenerative disc disease), lumbar [M51.36*11/09/2012 Bipolar 1 disorder (HCC) [F31.9] 11/09/2012 Morbid obesity with BMI of 50.0-59.9, adult (HC*11/09/2012 LVH (left ventricular hypertrophy) [I51.7] Atrial septal defect and mitral stenosis [Q21.1* 11/30/2012 Chronic bronchitis, simple [J41.0] 12/07/2012 Hypogonadism male [E29.1] 01/04/2013 Ulnar neuropathy of left upper extremity [G56.2*01/07/2013 Tendinitis of left wrist [M77.8] 05/14/2013 05/20/2022 Microalbuminuria [R80.9] 08/03/2018 Severe aortic stenosis [I35.0] 08/10/2018 N (more content not included)... [facility] 09-27-2024 Telephone encounter Note Please call patient to schedule vascular testing prior to appt with Dr. Espinal He is scheduled 10/01/24 Thank you [facility] 09-27-2024 Miscellaneous Notes Please call patient to schedule vascular testing prior to appt with Dr. Espinal He is scheduled 10/01/24 Thank you documented in this encounter [facility] 09-13-2024 Telephone encounter Note The patient has been identified by name and date of : Yes Caregiver verified no other encounters exist for this prescription request: Yes Caregiver confirmed with patient/requestor that no other refills are due, in the near future, with this provider at this time: Yes The last office visit in the department: 08/07/2024 Does the patient have a future office visit with this provider/department: 11/30/2024 Requested Prescriptions Pending Prescriptions Disp Refills docusate sodium (COLACE) 100 mg capsule 180 capsule 1 Sig: Take 1 capsule by mouth two times a day. pregabalin (LYRICA) 100 mg capsule 90 capsule 0 Sig: Take 1 capsule by mouth once daily for 90 days. pregablin (LYRICA) 200 mg capsule 90 capsule 1 Sig: Take 1 capsule by mouth daily at bedtime for [address] (PROTONIX) 40 mg tablet 90 tablet 1 Sig: Take 1 tablet by mouth daily before breakfast. Take on empty stomach, 1/2 hr before meal. metoprolol tartrate 37.5 mg tab 180 tablet 1 Sig: Take 1 tablet by mouth every 12 hours. traZODone (DESYREL) 50 mg tablet 30 tablet 2 Sig: Take 1 tablet by mouth daily at bedtime. Joan Gallardo RN September 13, 2024 4:31 PM [facility] 09-13-2024 Miscellaneous Notes The patient has been identified by name and date of : Yes Caregiver verified no other encounters exist for this prescription request: Yes Caregiver confirmed with patient/requestor that no other refills are due, in the near future, with this provider at this time: Yes The last office visit in the department: 08/07/2024 Does the patient have a future office visit with this provider/department: 11/30/2024 Requested Prescriptions Pending Prescriptions Disp Refills docusate sodium (COLACE) 100 mg capsule 180 capsule 1 Sig: Take 1 capsule by mouth two times a day. pregabalin (LYRICA) 100 mg capsule 90 capsule 0 Sig: Take 1 capsule by mouth once daily for 90 days. pregablin (LYRICA) 200 mg capsule 90 capsule 1 Sig: Take 1 capsule by mouth daily at bedtime for [address] (PROTONIX) 40 mg tablet 90 tablet 1 Sig: Take 1 tablet by mouth daily before breakfast. Take on empty stomach, 1/2 hr before meal. metoprolol tartrate 37.5 mg tab 180 tablet 1 Sig: Take 1 tablet by mouth every 12 hours. traZODone (DESYREL) 50 mg tablet 30 tablet 2 Sig: Take 1 tablet by mouth daily at bedtime. Joan Gallardo RN September 13, 2024 4:31 PM documented in this encounter [facility] 09-11-2024 Telephone encounter Note LVM and scheduled overdue follow up for 12/17/24 at 3:[address] Valente in [place]. ThanksPhilippe [facility] 09-11-2024 Miscellaneous Notes LVM and scheduled overdue follow up for 12/17/24 at 3:[address] Valente in [place]. ThanksPhilippe Spouse, Shweta, contacted [facility] stating patient was received instructions from [facility] director data processing, Amauri Jo CNP, to follow up with a art class model and possibly vascular specialist. Patient is wanting to continue cardiology care under Kathy Colbert CNP. Patient last saw Gemma 05/23/22. PSS notified patient that she is no longer at [facility] but would send a message seeing if she is willing to see him or if he needs to establish with an MD. Please contact spouse to advise ph. [phone] . documented in this encounter [facility] 09-10-2024 Telephone encounter Note Spouse, Shweta, contacted [facility] stating patient was received instructions from [employer] director data processing, Amauri Jo CNP, to follow up with a art class model and possibly vascular specialist. Patient is wanting to continue cardiology care under Kathy Colbert CNP. Patient last saw Gemma 05/23/22. PSS notified patient that she is no longer at [facility] but would send a message seeing if she is willing to see him or if he needs to establish with an MD. Please contact spouse to advise ph. [phone] . [facility] 09-09-2024 Instructions Amauri Jo APRN.TODD - 09/09/2024 12:43 PM EDT We discussed your lung cancer screening and lung nodule: - Your lung nodule remains stable compared to your previous scans, which is a good sign. It has not grown and may represent a scar or similar benign finding. - The radiologist will review your scan in detail, and I will contact you if they identify anything concerning. - I recommend a follow-up CT scan in 12 months to continue monitoring the nodule. This can be scheduled at the first front ventilator when you check out. We discussed your smoking history: - You reported smoking approximately three-quarters of a pack of cigarettes per day. Reducing or quitting smoking would be beneficial for your lung health. Let us know if you would like resources or support to help you quit. We discussed your heart health and recent medical history: - You mentioned having aortic valve replacement surgery, a stroke, and treatment for an aneurysm. You should have regular follow-ups with a art class model to monitor your heart health. - If you would like, the first front ventilator can assist you in scheduling an appointment with a art class model. We discussed your vascular health: - You mentioned a prior evaluation for peripheral vascular disease. If needed, the first front ventilator can help you reschedule with a vascular specialist. Next steps: - Schedule your follow-up CT scan for 12 months from now. - Consider scheduling appointments with a art class model and vascular specialist for ongoing care. - Let us know if you experience any new or worsening symptoms, such as shortness of breath, chest pain, or leg swelling. Please reach out if you have any questions or concerns. documented in this encounter [facility] 09-09-2024 Note HNO ID: [id number] Author: AMAURI JO APRN.CNP Service: ? Author Type: Nurse Practitioner Type: Progress Notes Filed: 09/09/2024 12:44 Note Text: [facility] Lung Cancer Screening Annual Visit Current or Ex-smoker? [Current] Exam Type: annual LDCT Number of Pack Years: 34 Current smoker (=0) or Number of Years since Quit: 0 The patient's smoking history is similar to prior year lung cancer screening visit. Chief Complaint: Established patient in lung cancer screening program here for annual follow-up and preliminary evaluation of today's LDCT exam for lung nodule surveillance/management. Impression / Recommendations Assessment: Kiel Catherine is at an increased risk for developing lung cancer based on their past tobacco use and continues to qualify for annual low dose CT screening. Plan: Indeterminate pulmonary nodules: Previously identified lung nodules appear stable and no new nodules of concern were noted during preliminary review of today's exam. Anticipated result: LUNG RADS Category 2 - Low dose CT Scan to be repeated in one year. Plan subject to change pending final radiology report and recommendations. Nature of the lung nodule(s) and the recommendations for further evaluation discussed in detail with patient. Kiel Catherine expressed understanding and is in agreement with plan. 2. Encounter for screening for malignant neoplasm of respiratory organs I have determined that the patient is eligible for continued low dose CT screening based on age, absence of signs or symptoms of lung cancer, smoking history and total pack years. The patient was counseled on the importance of adherence to annual LDCT lung cancer screening, impact of comorbidities and ability or willingness to undergo diagnosis and treatment. The patient understands and would like to continue with annual lung screening: Yes. 3. Personal history of nicotine dependence reports that he has been smoking cigarettes. He has a 33.8 pack-year smoking history. He has never used smokeless tobacco. The patient was counseled on the importance of smoking cessation if current smoker and, if appropriate, offered additional tobacco cessation counseling services - Smoking Cessation Counseling. SMOKING CESSATION COUNSELING Smoking cessation methods including Behavior Modification were discussed with the patient and assistance offered. The medical conditions adversely affected by cigarette use include:COPD, Emphysema, and Lung Cancer. Counseled on benefits of quitting smoking, recommended cessation or reduction to prevent development and/or progression of emphysema. The patient is currently not ready to quit. I personally spent 3 minutes in counseling. The time spent in smoking cessation counseling is exclusive of any other counseling during this visit. Amauri Jo APRN.[facility] History of Present Illness: Kiel Catherine is a 63-year-old male, with a history of smoking, presenting for an annual lung cancer screening follow-up and lung nodule follow-up. Accompanied by daughter. Kiel was last seen in July 2022. 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 He has not had a follow-up with a art class model since the surgery due to a canceled appointment and difficulty scheduling. He denies dyspnea, hemoptysis, wheezing, or recent chest colds or infections. He reports occasional coughing, which he attributes to his smoking habit of approximately 3/4 pack per day. He notes that his breathing is not 100%, but considers it good for someone who smokes. He has not seen a director data processing since his surgery. He mentions a previous consultation he had to cancel with a vascular doctor for peripheral vascular disease earlier this month. About 8 years ago, he was told he had poor blood flow and was advised to consider a vein graft. He is currently without a car but expects to have it running by September. Last 12 Encounter Wt Readings: Date: Wt: 09/09/2024 113.4 kg (250 lb) 02/08/2024 116.6 kg (257 lb) 07/05/2023 104.3 kg (230 lb) 07/03/2023 104.6 kg (230 lb 9.6 oz) 06/06/2023 111.1 kg (245 lb) 03/16/2023 128.4 kg (283 lb) 03/02/2023 124.3 kg (274 lb 0.5 oz) 02/27/2023 130.2 kg (287 lb) 12/19/2022 128.5 kg (283 lb 3.2 oz) 11/30/2022 126.1 kg (278 lb) 11/17/2022 126.1 kg (278 lb) 11/10/2022 128.8 kg (284 lb) Social History Social History Tobacco Use Smoking status: Every Day Packs/day: 0.75 Years: 0.8 packs/day for 45.0 years (33.8 ttl pk-yrs) Types: Cigarettes Smokeless tobacco: Never Past Medical History: PAST MEDICAL HISTORY Diagnosis Date Acute ischemic left MCA stroke (HCC) 03/22/2023 Anxiety Aortic valve stenosis, no (more content not included)... [facility] 09-09-2024 History of Presen t illness Narrative [facility] Lung Cancer Screening Annual Visit Current or Ex-smoker? [Current] Exam Type: annual LDCT Number of Pack Years: 34 Current smoker (=0) or Number of Years since Quit: 0 The patient's smoking history is similar to prior year lung cancer screening visit. Chief Complaint: Established patient in lung cancer screening program here for annual follow-up and preliminary evaluation of today's LDCT exam for lung nodule surveillance/management. Impression / Recommendations Assessment: Kiel Catherine is at an increased risk for developing lung cancer based on their past tobacco use and continues to qualify for annual low dose CT screening. Plan: Indeterminate pulmonary nodules: Previously identified lung nodules appear stable and no new nodules of concern were noted during preliminary review of today's exam. Anticipated result: LUNG RADS Category 2 - Low dose CT Scan to be repeated in one year. Plan subject to change pending final radiology report and recommendations. Nature of the lung nodule(s) and the recommendations for further evaluation discussed in detail with patient. Kiel Catherine expressed understanding and is in agreement with plan. 2. Encounter for screening for malignant neoplasm of respiratory organs I have determined that the patient is eligible for continued low dose CT screening based on age, absence of signs or symptoms of lung cancer, smoking history and total pack years. The patient was counseled on the importance of adherence to annual LDCT lung cancer screening, impact of comorbidities and ability or willingness to undergo diagnosis and treatment. The patient understands and would like to continue with annual lung screening: Yes. 3. Personal history of nicotine dependence reports that he has been smoking cigarettes. He has a 33.8 pack-year smoking history. He has never used smokeless tobacco. The patient was counseled on the importance of smoking cessation if current smoker and, if appropriate, offered additional tobacco cessation counseling services - Smoking Cessation Counseling. SMOKING CESSATION COUNSELING Smoking cessation methods including Behavior Modification were discussed with the patient and assistance offered. The medical conditions adversely affected by cigarette use include:COPD, Emphysema, and Lung Cancer. Counseled on benefits of quitting smoking, recommended cessation or reduction to prevent development and/or progression of emphysema. The patient is currently not ready to quit. I personally spent 3 minutes in counseling. The time spent in smoking cessation counseling is exclusive of any other counseling during this visit. Amauri Jo APRN.[facility] History of Present Illness: Kiel Catherine is a 63-year-old male, with a history of smoking, presenting for an annual lung cancer screening follow-up and lung nodule follow-up. Accompanied by daughter. Kiel was last seen in July 2022. 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 He has not had a follow-up with a art class model since the surgery due to a canceled appointment and difficulty scheduling. He denies dyspnea, hemoptysis, wheezing, or recent chest colds or infections. He reports occasional coughing, which he attributes to his smoking habit of approximately 3/4 pack per day. He notes that his breathing is not 100%, but considers it good for someone who smokes. He has not seen a director data processing since his surgery. He mentions a previous consultation he had to cancel with a vascular doctor for peripheral vascular disease earlier this month. About 8 years ago, he was told he had poor blood flow and was advised to consider a vein graft. He is currently without a car but expects to have it running by September. Last 12 Encounter Wt Readings: Date: Wt: 09/09/2024 113.4 kg (250 lb) 02/08/2024 116.6 kg (257 lb) 07/05/2023 104.3 kg (230 lb) 07/03/2023 104.6 kg (230 lb 9.6 oz) 06/06/2023 111.1 kg (245 lb) 03/16/2023 128.4 kg (283 lb) 03/02/2023 124.3 kg (274 lb 0.5 oz) 02/27/2023 130.2 kg (287 lb) 12/19/2022 128.5 kg (283 lb 3.2 oz) 11/30/2022 126.1 kg (278 lb) 11/17/2022 126.1 kg (278 lb) 11/10/2022 128.8 kg (284 lb) Social History Social History Tobacco Use Smoking status: Every Day Packs/day: 0.75 Years: 0.8 packs/day for 45.0 years (33.8 ttl pk-yrs) Types: Cigarettes Smokeless tobacco: Never Past Medical History: PAST MEDICAL HISTORY Diagnosis Date Acute ischemic left MCA stroke (HCC) 03/22/2023 Anxiety Aortic valve stenosis, nonrheumatic Atrial septal defect and mitral stenosis (HCC) Bicuspid aortic valve (HCC) Bipolar 1 disorder (HCC) Chronic obstructive pulmonary disease (COPD) (HCC) Coronary artery disease Degenerative disc disease sees Dr. Sellers Diabetic neuropathy (HCC) DM (diabetes mellitus) (HCC) HTN (hypertension) Hyperkalemia Hyperlipidemia Hypogonadism male LVH (left ventricular hypertrophy) Morbid obesity ([facility]) MANISH on CPAP Pain management Dr. Basali Family Hx: FAMILY HISTORY Problem Relation Age of Onset Diabetes Father 2011 with pneumonia other (Dementia) Father Heart Mother CABG 4. Diabetes Sister Ischemic Heart Disease Brother other (Myocardial infarc) Brother Fatal [place] No Ocular Disease No Family History Surgical Hx: PAST SURGICAL HISTORY Procedure Laterality Date BACK SURGERY HX fusion- lumbar CARPAL TUNNEL both HEART SURGERY HX 03/20/2023 S/p 03/20/2023 AVR (27 Epic plus) and Ascending repair (28 hemishield) PAST SURGICAL HISTORY OF left shouder surgery PAST SURGICAL HISTORY OF nasal passages clearing for sleep apnea PAST SURGICAL HISTORY OF 02/13/1981 ORIF right ankle PAST SURGICAL HISTORY OF 04/03/2013 left ulnar nerve decompression Allergies: ALLERGIES Allergen Reactions Iodinated Contrast * GI Upset, Other: See Comments Hypotension, temporary SOB Lisinopril Other: See Comments Hyperkalemia Penicillins Rash Flonase [Fluticason* Other: See Comments Nose bleeds Review Of Systems: See HPI for ROS All of the remainder systems were reviewed and negative. PHYSICAL EXAMINATION: General: Alert, oriented, no acute distress Neck: No carotid bruit on bilateral auscultation Respiratory: Clear to posterior auscultation, bilaterally Cardiovascular: Jugular venous pressure normal. Regular rate and rhythm, normal S1 and S2, no murmurs or added sounds Abdomen: Soft, non-tender, normal bowel sounds Extremities: No clubbing, cyanosis, or edema Data Review I have visually reviewed imaging and testing below CT imaging done today was reviewed independently and compared to prior CT chest imaging by practitioner and awaiting radiology review. Imaging: - (Today) CT Chest: Stable small left lung nodule with no interval change. - (2022) CT Chest: Small left lung nodule. Tests: - (2022) Pulmonary Function Test: Normal findings. Imaging Last CT/CTA Chest/Lungs CT LUNG SCREEN WO IVCON Exam End: 09/09/2024 10:38 AM (In process) 07/14/2022 4:36 PM - Radiology, Oru In Impression IMPRESSION: LungRADS category: 2 LungRADS modifier: None LungRADS 0 reason: n/a Recommendations: Continue annual screening with LDCT in 12 months. Other actionable findings: Reference: [employer]. Lung CT Screening Reporting and Data System (Lung-RADS). Available at: http://www.acr.org/Quality-Safet y/Resources/LungRADS Missile Control Pilot: TOMMY Transcribe Date/Time: Jul 14 2022 3:39P Dictated by : FAITH DANIELS MD This examination was interpreted and the report reviewed and electronically signed by: FAITH DANIELS MD on Jul 14 2022 4:34PM EST Results-Findings * * *Final Report* * * DATE OF EXAM: Jul 14 2022 2:03PM [facility] 0562 - CT LUNG SCREEN [facility] / PROCEDURE REASON: multiple diagnoses * * * * Physician Interpretation * * * * EXAMINATION: CHEST CT WITHOUT CONTRAST (LOW-DOSE CT LUNG CANCER SCREENING PROTOCOL) CLINICAL HISTORY: Lung cancer LDCT screening ? absence of signs or symptoms of lung cancer. Nicotine dependence (cigarettes). Baseline (initial) Technique: Spiral CT acquisition of the chest from the thoracic inlet to the upper abdomen without contrast. MQ: [id number]_6 Patient characteristics: * Qlld-hs-Srlty: 1960; Age at exam: 61 years * Gender: Male * Lung Disease: Asymptomatic (no signs or symptoms of lung disease) * Number of Pack Years: 45 * Current smoker (=0) or Number of Years since Quit: 0 * Ordering provider and NPI: AMAURI JO [id number] * Interpreting radiologist and NPI: Joaquina [id number] Exam acquisition parameters: * Exam Date: 07/14/2022 2:03 PM * Site: [facility] * * CT System Passenger Interline Clerk: Siemens * CT System Model: Sensation * Tube Current-Time (mA-sec): 63 * Peak Voltage (kV): 120V * Scan Time (sec): 10.09 * Scan Volume (z-length, cm): -26.65 * Pitch: 0.75 * Slice Thickness (mm): 1.5 * CT Dose-Length Product: 163 mGy*cm * CT Dose Index: 4.85mGy * CT Dose Reduction Method: Automated exposure control(AEC) and iterative recon COMPARISON: No prior CT chest is available for comparison. RESULT: Are nodules present? Yes, 1-5 nodules If No, go to IMPRESSION. If yes, proceed with characterization of the FIVE largest nodules. Nodule 1: This Solid nodule is located in the Left Lower Lobe on slice number 103 with an average diameter of 4.6 mm (5.3 mm x 3.9 mm). Other lung nodule comments: None Other findings: Quantum mottle limits evaluation. The central airways are patent without evidence of endobronchial lesion. No acute focal lung consolidation is seen. Subsegmental atelectasis is seen in the inferior aspect of the right upper lobe There is no pleural effusion or pneumothorax. No enlarged supraclavicular, axillary, mediastinal or hilar lymph nodes are seen. The ascending aorta is ectatic measuring 4.0 cm in diameter (image 88). Atherosclerotic calcifications are seen in the aorta. Calcifications of aortic valve leaflets are visible which can be associated with increased incidence of aortic stenosis. The main pulmonary artery is normal in course and caliber. The heart size is normal. There is no pericardial effusion. The thyroid gland is not well-visualized. The esophagus is nondilated. The soft tissues of the chest wall are unremarkable. The evaluation of the upper abdomen is limited by artifact although no acute abnormality is seen. No destructive bone lesion is seen. Mild anterior compression deformities of T11 and T12 vertebral bodies are seen. Degenerative changes are seen in the thoracic spine. Emphysema: None, Coronary Artery Calcifications: Circumflex None; Left Anterior Descending Mild; Right Coronary None Global Sales Manager (topogram) images: No additional findings. No results found for this or any previous visit from the past 720 days. Pulmonary Function Testing: No textual results found for the specified procedure(s). Recording using ambient AI software for draft documentation of the visit was discussed with the patient/authorized workforce services representative; all questions welcomed and answered. Patient/authorized workforce services representative agreed to proceed Some of this note was generated using AI assistance and dictation software, which may result in errors in word translation, typographical mistakes, or grammatical inconsistencies that may not have been identified before finalization. Please consider this when reviewing the note. documented in this encounter [facility] 09-09-2024 History of Presen t illness Narrative Radiology Service Progress Note PATIENT NAME: Kiel Catherine DATE OF SERVICE: September 09, 2024 TIME: 3:21 PM PATIENT IDENTITY VERIFICATION COMPLETED USING TWO (2) IDENTIFIERS: Name and Date of confirmed by patient verbally. FALL SCREENING: Has the patient had 2 falls in the last year or 1 fall with injury or currently using an Ambulatory Assistive Device (Walker, Cane, Wheelchair, Crutches, etc.)? No PATIENT GENDER DATA: Assigned male at PATIENT RELEVANT IMPLANT DATA REVIEWED: Yes PATIENT PRESENTS WITH AN IMPLANTABLE OR ATTACHED BEE FARMER: No RADIOLOGY DEPARTMENT: CT; Exam(s) Completed: Lung Screening PERIPHERAL IV DATA: Not applicable SIGNED BY: RT Felix(R) September 09, 2024 3:21 PM documented in this encounter [facility] 09-09-2024 Note HNO ID: [id number] Author: SANTI SEPULVEDA RT(Moreno) Service: ? Author Type: Jacquard Loom Carpet Weaver Type: Progress Notes Filed: 09/09/2024 15:22 Note Text: Radiology Service Progress Note PATIENT NAME: Kiel Catherine DATE OF SERVICE: September 09, 2024 TIME: 3:21 PM PATIENT IDENTITY VERIFICATION COMPLETED USING TWO (2) IDENTIFIERS: Name and Date of confirmed by patient verbally. FALL SCREENING: Has the patient had 2 falls in the last year or 1 fall with injury or currently using an Ambulatory Assistive Device (Walker, Cane, Wheelchair, Crutches, etc.)? No PATIENT GENDER DATA: Assigned male at PATIENT RELEVANT IMPLANT DATA REVIEWED: Yes PATIENT PRESENTS WITH AN IMPLANTABLE OR ATTACHED BEE FARMER: No RADIOLOGY DEPARTMENT: CT; Exam(s) Completed: Lung Screening PERIPHERAL IV DATA: Not applicable SIGNED BY: RT Felix(R) September 09, 2024 3:21 PM [facility] 09-03-2024 Note HNO ID: [id number] Author: ?, ?, ? Service: ? Author Type: ? Type: Progress Notes Filed: 09/03/2024 10:38 Note Text: POPULATION HEALTH NAVIGATION OUTREACH Action/FYI Patient outreach for HCCs Hm due; AWV, KED, GAUDENCIO, COLO LVM and sent myc to close gaps. Reason for Outreach Care Gap/HCC or Scheduling Wellness Visits Care Gaps due: Medicare Annual Wellness Visit Colorectal Cancer Screening Diabetic Eye Exam KED Patient Contacted: Unable or unnecessary to reach patient: Left message MyChart message sent HCC related Updated appointment notes Navigation Signature: Carmen Granger September 03, 2024 10:25 AM [facility] 09-03-2024 History of Presen t illness Narrative POPULATION HEALTH NAVIGATION OUTREACH Action/FYI Patient outreach for HCCs Hm due; AWV, KED, GAUDENCIO, COLO LVM and sent myc to close gaps. Reason for Outreach Care Gap/HCC or Scheduling Wellness Visits Care Gaps due: Medicare Annual Wellness Visit Colorectal Cancer Screening Diabetic Eye Exam KED Patient Contacted: Unable or unnecessary to reach patient: Left message [employer] message sent HCC related Updated appointment notes Navigation Signature: Carmen Granger September 03, 2024 10:25 AM documented in this encounter [facility] 09-03-2024 Note Patient Outreach (NE TNAV) KIEL CATHERINE ([id number]) 1960 M Date Time Provider Department 09/03/24 ALYSON ARTHUR During your visit today, we recorded the following information about you: Carmen Leos 09/03/2024 10:38 AM Signed POPULATION HEALTH NAVIGATION OUTREACH Action/FYI Patient outreach for HCCs Hm due; AWV, KED, GAUDENCIO, COLO LVM and sent myc to close gaps. Reason for Outreach Care Gap/HCC or Scheduling Wellness Visits Care Gaps due: Medicare Annual Wellness Visit Colorectal Cancer Screening Diabetic Eye Exam KED Patient Contacted: Unable or unnecessary to reach patient: Left message [employer]hart message sent HCC related Updated appointment notes Navigation Signature: Carmen Mckeon Bárbara September 03, 2024 10:25 AM Allergies As of Date: 09/03/2024 Noted Allergy Reaction IODINATED CONTRAST MEDIA 03/16/2023 8 - GI Upset 14 - Other: See Comments Comments: Hypotension, temporary SOB LISINOPRIL 12/01/2017 14 - Other: See Comments Comments: Hyperkalemia PENICILLINS 10/29/2010 2 - Rash FLONASE (FLUTICASONE PROPIONATE) 10/18/2021 14 - Other: See Comments Comments: Nose bleeds Date Reviewed: 08/07/2024 Reviewed by: Bebeto Haro LPN - Fully Assessed Reason for Visit: Population Health Navigation Outreach [3910] Cmt: Eladio Nuñez Prescriptions as of 09/03/2024 - insulin aspart U-100 (NOVOLOG FLEXPEN U-100 INSULIN) 100 unit/mL (3 mL) pen Use for sliding scale as directed with meals Blood sugar 0-150, no coverage; 151- 200, 2 units; 201- 250 4 units; 251- 300 6 units 301- 350 8 units, > 351 10 units - bumetanide (BUMEX) 1 mg tablet Take 2 tablets by mouth two times a day. - insulin glargine (LANTUS SOLOSTAR U-100 INSULIN) 100 unit/mL (3 mL) Inject 22 Units subcutaneously daily at bedtime. - albuterol HFA (PROVENTIL HFA, VENTOLIN HFA) 90 mcg/actuation inhaler Inhale 2 puffs as instructed every 4 hours as needed for wheezing/shortness of breath. - traZODone (DESYREL) 50 mg tablet Take 1 tablet by mouth daily at bedtime. - pregabalin (LYRICA) 100 mg capsule Take 1 capsule by mouth once daily for 90 days. - ammonium lactate (LAC-HYDRIN) 12 % cream Apply to affected area as needed for dry skin. - apixaban (ELIQUIS) 5 mg tab(s) Take 1 tablet by mouth two times a day. - docusate sodium (COLACE) 100 mg capsule Take 1 capsule by mouth two times a day. - pantoprazole DR (PROTONIX) 40 mg tablet Take 1 tablet by mouth daily before breakfast. Take on empty stomach, 1/2 hr before meal. - metoprolol tartrate 37.5 mg tab Take 1 tablet by mouth every 12 hours. - Pregabalin (LYRICA) 200 mg capsule Take 1 capsule by mouth daily at bedtime for 180 days. - flash glucose scanning reader (FREESTYLE ANAHI 2 READER) DMII, insulin requiring. Testing 3-5 times q day - amLODIPine (NORVASC) 5 mg tablet Take 1 tablet by mouth once daily. - atorvastatin (LIPITOR) 10 mg tablet Take 1 tablet by mouth daily at bedtime. - budesonide-formoterol (SYMBICORT) 80-4.5 mcg/actuation inhaler Inhale 2 Puffs as instructed two times a day. - flash glucose sensor (FREESTYLE ANAHI 2 SENSOR) kit DMII, insulin requiring. Testing 3-5 times q day - ipratropium-albuterol (DUONEB) 0.5 mg-3 mg(2.5 mg base)/3 mL nebu Inhale 3 mL as instructed four times daily. - insulin needles, DISPOSABLE, (PEN NEEDLE) 31 gauge x 5/16 Use one needle per dose. 4per day. - MULTIVITAMIN-FERROUS FUMARATE-FOLIC ACID 18 MG-400 MCG TABLET Take 1 tablet by mouth daily with breakfast. - Melatonin 5 mg cap Take by mouth. - acetaminophen (TYLENOL) 650 mg/20.3 mL soln 20.3 mL by ORAL/FEEDING TUBE route every 4 hours as needed for pain. Do not exceed 5 doses in 24 hours. - aspirin 81 mg chewable tablet 1 tablet by CORPAK route once daily. - magnesium hydroxide (MOM) 400 mg/5 mL suspension 30 mL by CORPAK route every 6 hours as needed. Meds Comments as of 04/29/2014: 04/29/14 - Patient states he is on a 50 mg pain patch but does not know the name. Nitza Guthrie Ma Problem List As Of Date 09/03/2024 Noted Resolved Restrictive lung disease [J98.4] 11/12/2010 MANISH on CPAP [G47.33] 11/09/2012 Bicuspid aortic valve (HCC) [Q23.81] 11/09/2012 Controlled type 2 diabetes mellitus with diabet*11/09/2012 Hyperlipidemia [E78.5] 11/09/2012 Hypertension [I10] 11/09/2012 DDD (degenerative disc disease), lumbar [M51.36*11/09/2012 Bipolar 1 disorder (HCC) [F31.9] 11/09/2012 Morbid obesity with BMI of 50.0-59.9, adult (HC*11/09/2012 LVH (left ventricular hypertrophy) [I51.7] Atrial septal defect and mitral stenosis [Q21.1* 11/30/2012 Chronic bronchitis, simple [J41.0] 12/07/2012 Hypogonadism male [E29.1] 01/04/2013 Ulnar neuropathy of left upper extremity [G56.2*01/07/2013 Tendinitis of left wrist [M77.8] 05/14/2013 05/20/2022 Microalbuminuria [R80.9] 08/03/2018 Severe aortic stenosis [I (more content not included)... [facility] 08-22-2024 Telephone encounter Note Prescription Refill Information The patient has been identified by name and date of : Yes Caregiver verified no other encounters exist for this prescription request: Yes Caregiver confirmed with patient/requestor that no other refills are due, in the near future, with this provider at this time: Yes The last office visit in the department: 08/07/24 Does the patient have a future office visit with this provider/department: Yes Requested Prescriptions Pending Prescriptions Disp Refills insulin aspart U-100 (NOVOLOG FLEXPEN U-100 INSULIN) 100 unit/mL (3 mL) pen 5 each 11 Sig: Use for sliding scale as directed with meals Blood sugar 0-150, no coverage; 151- 200, 2 units; 201- 250 4 units; 251- 300 6 units 301- 350 8 units, > 351 10 units Sofia Bacaing Bárbara August 22, 2024 3:45 PM [facility] 08-22-2024 Miscellaneous Notes Prescription Refill Information The patient has been identified by name and date of : Yes Caregiver verified no other encounters exist for this prescription request: Yes Caregiver confirmed with patient/requestor that no other refills are due, in the near future, with this provider at this time: Yes The last office visit in the department: 08/07/24 Does the patient have a future office visit with this provider/department: Yes Requested Prescriptions Pending Prescriptions Disp Refills insulin aspart U-100 (NOVOLOG FLEXPEN U-100 INSULIN) 100 unit/mL (3 mL) pen 5 each 11 Sig: Use for sliding scale as directed with meals Blood sugar 0-150, no coverage; 151- 200, 2 units; 201- 250 4 units; 251- 300 6 units 301- 350 8 units, > 351 10 units Sofia Granger August 22, 2024 3:45 PM documented in this encounter [facility] 08-19-2024 Telephone encounter Note The patient has been identified by name and date of : Yes, pharmacy Caregiver verified no other encounters exist for this prescription request: Yes Caregiver confirmed with patient/requestor that no other refills are due, in the near future, with this provider at this time: Yes The last office visit in the department: 08/07/2024 Does the patient have a future office visit with this provider/department: Yes 11/30/2024 Requested Prescriptions Pending Prescriptions Disp Refills bumetanide (BUMEX) 1 mg tablet 360 tablet 1 Sig: Take 2 tablets by mouth two times a day. Fely Cohn LPN August 19, 2024 11:22 AM [facility] 08-19-2024 Miscellaneous Notes The patient has been identified by name and date of : Yes, pharmacy Caregiver verified no other encounters exist for this prescription request: Yes Caregiver confirmed with patient/requestor that no other refills are due, in the near future, with this provider at this time: Yes The last office visit in the department: 08/07/2024 Does the patient have a future office visit with this provider/department: Yes 11/30/2024 Requested Prescriptions Pending Prescriptions Disp Refills bumetanide (BUMEX) 1 mg tablet 360 tablet 1 Sig: Take 2 tablets by mouth two times a day. Fely Cohn LPN August 19, 2024 11:22 AM documented in this encounter [facility] 08-13-2024 Telephone encounter Note Pt notified of results/provider instructions. He verbalized understanding. Bebeto Haro LPN [facility] 08-13-2024 Telephone encounter Note Pt notified. He verbalized understanding. Bebeto Haro LPN [facility] 08-13-2024 Miscellaneous Notes Pt notified of results/provider instructions. He verbalized understanding. Bebeto Haro LPN LM to return call to office. Bebeto Haro LPN Can please let patient know that I received his labs. His A1C improved to 8.1 (previously 10.3). It is still higher than we like. Lets increase his lantus to 22 units in the evening. Please send me in some sugars next week so we can see if we need to further adjust. Everything else looks okay. Angela Schmid APRN.GUEST HISTORY CLERK documented in this encounter [facility] 08-13-2024 Miscellaneous Notes Pt notified. He verbalized understanding. Bebeto Haro LPN That is fine. New script sent. Can please let patient know. Angela Schmid APRN.CNP Covermymeds PA rec'd for ciprofloxacin-dexAMETHasone (CIPRODEX) 0.3-0.1 % otic suspension Called the pharmacy and they report that this is not formulary. They report pts insurance would covered cortisporin otic suspension. Can this be changed to formulary? documented in this encounter [facility] 08-13-2024 Telephone encounter Note That is fine. New script sent. Can please let patient know. Angela Schmid APRN.TODD [facility] 08-13-2024 Telephone encounter Note Covermymeds PA rec'd for ciprofloxacin-dexAMETHasone (CIPRODEX) 0.3-0.1 % otic suspension Called the pharmacy and they report that this is not formulary. They report pts insurance would covered cortisporin otic suspension. Can this be changed to formulary? [facility] 08-13-2024 Telephone encounter Note LM to return call to office. Bebeto Haro LPN [facility] 08-12-2024 Telephone encounter Note Can please let patient know that I received his labs. His A1C improved to 8.1 (previously 10.3). It is still higher than we like. Lets increase his lantus to 22 units in the evening. Please send me in some sugars next week so we can see if we need to further adjust. Everything else looks okay. Angela Schmid APRN.GUEST HISTORY CLERK [facility] 08-07-2024 Note HNO ID: [id number] Author: ANGELA SCHMID APRN.TODD Service: ? Author Type: Nurse Practitioner Type: Progress Notes Filed: 08/07/2024 22:10 Note Text: This is a 63 year old male who presents today with: Kiel Walt Catherine is a 63-year-old male with a history of CVA, COPD, DM, and HTN, presenting for a medication review and evaluation of foot pain. HISTORY OF PRESENT ILLNESS: Foot Pain: - Severe foot pain, especially at night, affecting sleep. - Pain management by Dr. Sellers; currently on Xtampza. - History of CVA affecting the right side. - Reports numbness and tingling on the top of the feet. - No current follow-up with a personal secretary. Ear Discomfort: - Reports feeling of swelling in the left ear. - No drainage; hearing is partially affected. COPD: - Uses Symbicort inhaler. - Requests refill for albuterol inhaler. - Reports occasional cough, especially when smoking. - Former CPAP user. Tobacco Use: - Smokes approximately 0.75 packs per day. Diabetes Mellitus: - Takes Lantus 20 units at bedtime. - Uses sliding scale insulin with meals. - Monitors blood glucose at home; readings around 200 mg/dL. - Follows a diet mindful of sugars and carbohydrates. - Reports excessive thirst and frequent urination. Hypertension: - Takes amlodipine. Hyperlipidemia: - Takes atorvastatin. No side effects. Anticoagulation Therapy: - Takes apixaban. No abnormal s/s of bleeding. Chronic Pain: - Managed by Dr. Sellers; currently on Xtampza. - No longer taking tramadol. Insomnia: - Takes trazodone at bedtime. Bowel Movements: - Uses Colace and Miralax PRN. - No hematochezia or melena reported. Cold Intolerance: - Reports feeling cold most of the time. Dizziness: - Experiences dizziness when standing up quickly. - No syncope reported. PAST MEDICAL HISTORY: PAST MEDICAL HISTORY Diagnosis Date Acute ischemic left MCA stroke (HCC) 03/22/2023 Anxiety Aortic valve stenosis, nonrheumatic Atrial septal defect and mitral stenosis (HCC) Bicuspid aortic valve (HCC) Bipolar 1 disorder ([facility]) Chronic obstructive pulmonary disease (COPD) ([facility]) Coronary artery disease Degenerative disc disease sees Dr. Sellers Diabetic neuropathy ([facility]) DM (diabetes mellitus) ([facility]) HTN (hypertension) Hyperkalemia Hyperlipidemia Hypogonadism male LVH (left ventricular hypertrophy) Morbid obesity ([facility]) MANISH on CPAP Pain management Dr. Sellers PAST SURGICAL HISTORY Procedure Laterality Date BACK SURGERY HX fusion- lumbar CARPAL TUNNEL both HEART SURGERY HX 03/20/2023 S/p 03/20/2023 AVR (27 Epic plus) and Ascending repair (28 hemishield) PAST SURGICAL HISTORY OF left shouder surgery PAST SURGICAL HISTORY OF nasal passages clearing for sleep apnea PAST SURGICAL HISTORY OF 02/13/1981 ORIF right ankle PAST SURGICAL HISTORY OF 04/03/2013 left ulnar nerve decompression ALLERGIES Iodinated Contrast Media, Lisinopril, Penicillins, and Flonase [Fluticasone Propionate] MEDICATIONS Current Outpatient Medications Medication Sig albuterol HFA (PROVENTIL HFA, VENTOLIN HFA) 90 mcg/actuation inhaler Inhale 2 puffs as instructed every 4 hours as needed for wheezing/shortness of breath. ciprofloxacin-dexAMETHasone (CIPRODEX) 0.3-0.1 % otic suspension Use 4 drops in the left ear two times a day for 7 days. traZODone (DESYREL) 50 mg tablet Take 1 tablet by mouth daily at bedtime. pregabalin (LYRICA) 100 mg capsule Take 1 capsule by mouth once daily for 90 days. ammonium lactate (LAC-HYDRIN) 12 % cream Apply to affected area as needed for dry skin. apixaban (ELIQUIS) 5 mg tab(s) Take 1 tablet by mouth two times a day. docusate sodium (COLACE) 100 mg capsule Take 1 capsule by mouth two times a day. pantoprazole DR (PROTONIX) 40 mg tablet Take 1 tablet by mouth daily before breakfast. Take on empty stomach, 1/2 hr before meal. metoprolol tartrate 37.5 mg tab Take 1 tablet by mouth every 12 hours. Pregabalin (LYRICA) 200 mg capsule Take 1 capsule by mouth daily at bedtime for 180 days. flash glucose scanning reader (FREESTYLE ANAHI 2 READER) DMII, insulin requiring. Testing 3-5 times q day amLODIPine (NORVASC) 5 mg tablet Take 1 tablet by mouth once daily. atorvastatin (LIPITOR) 10 mg tablet Take 1 tablet by mouth daily at bedtime. budesonide-formoterol (SYMBICORT) 80-4.5 mcg/actuation inhaler Inhale 2 Puffs as instructed two times a day. bumetanide (BUMEX) 1 mg tablet Take 2 tablets by mouth two times a day. flash glucose sensor (FREESTYLE ANAHI 2 SENSOR) kit DMII, insulin requiring. Testing 3-5 times q day insulin glargine (LANTUS SOLOSTAR U-100 INSULIN) 100 unit/mL (3 mL) Inject 20 Units subcutaneously daily at bedtime. ipratropium-albuterol (DUONEB) 0.5 mg-3 mg(2.5 mg base)/3 mL nebu Inhale 3 mL as instructed four times daily. insulin aspart U-100 (NOVOLOG FLEXPEN U-100 INSULIN) 100 unit/mL (3 mL) Use for sliding scale as directed with meals (more content not included)... [facility] 08-07-2024 History of Presen t illness Narrative This is a 63 year old male who presents today with: Kiel Sheareralonso is a 63-year-old male with a history of CVA, COPD, DM, and HTN, presenting for a medication review and evaluation of foot pain. HISTORY OF PRESENT ILLNESS: Foot Pain: - Severe foot pain, especially at night, affecting sleep. - Pain management by Dr. Sellers; currently on Xtampza. - History of CVA affecting the right side. - Reports numbness and tingling on the top of the feet. - No current follow-up with a personal secretary. Ear Discomfort: - Reports feeling of swelling in the left ear. - No drainage; hearing is partially affected. COPD: - Uses Symbicort inhaler. - Requests refill for albuterol inhaler. - Reports occasional cough, especially when smoking. - Former CPAP user. Tobacco Use: - Smokes approximately 0.75 packs per day. Diabetes Mellitus: - Takes Lantus 20 units at bedtime. - Uses sliding scale insulin with meals. - Monitors blood glucose at home; readings around 200 mg/dL. - Follows a diet mindful of sugars and carbohydrates. - Reports excessive thirst and frequent urination. Hypertension: - Takes amlodipine. Hyperlipidemia: - Takes atorvastatin. No side effects. Anticoagulation Therapy: - Takes apixaban. No abnormal s/s of bleeding. Chronic Pain: - Managed by Dr. Sellers; currently on Xtampza. - No longer taking tramadol. Insomnia: - Takes trazodone at bedtime. Bowel Movements: - Uses Colace and Miralax PRN. - No hematochezia or melena reported. Cold Intolerance: - Reports feeling cold most of the time. Dizziness: - Experiences dizziness when standing up quickly. - No syncope reported. PAST MEDICAL HISTORY: PAST MEDICAL HISTORY Diagnosis Date Acute ischemic left MCA stroke ([facility]) 03/22/2023 Anxiety Aortic valve stenosis, nonrheumatic Atrial septal defect and mitral stenosis ([facility]) Bicuspid aortic valve ([facility]) Bipolar 1 disorder ([facility]) Chronic obstructive pulmonary disease (COPD) ([facility]) Coronary artery disease Degenerative disc disease sees Dr. Sellers Diabetic neuropathy ([facility]) DM (diabetes mellitus) ([facility]) HTN (hypertension) Hyperkalemia Hyperlipidemia Hypogonadism male LVH (left ventricular hypertrophy) Morbid obesity ([facility]) MANISH on CPAP Pain management Dr. Sellers PAST SURGICAL HISTORY Procedure Laterality Date BACK SURGERY HX fusion- lumbar CARPAL TUNNEL both HEART SURGERY HX 03/20/2023 S/p 03/20/2023 AVR (27 Epic plus) and Ascending repair (28 hemishield) PAST SURGICAL HISTORY OF left shouder surgery PAST SURGICAL HISTORY OF nasal passages clearing for sleep apnea PAST SURGICAL HISTORY OF 02/13/1981 ORIF right ankle PAST SURGICAL HISTORY OF 04/03/2013 left ulnar nerve decompression ALLERGIES Iodinated Contrast Media, Lisinopril, Penicillins, and Flonase [Fluticasone Propionate] MEDICATIONS Current Outpatient Medications Medication Sig albuterol HFA (PROVENTIL HFA, VENTOLIN HFA) 90 mcg/actuation inhaler Inhale 2 puffs as instructed every 4 hours as needed for wheezing/shortness of breath. ciprofloxacin-dexAMETHasone (CIPRODEX) 0.3-0.1 % otic suspension Use 4 drops in the left ear two times a day for 7 days. traZODone (DESYREL) 50 mg tablet Take 1 tablet by mouth daily at bedtime. pregabalin (LYRICA) 100 mg capsule Take 1 capsule by mouth once daily for 90 days. ammonium lactate (LAC-HYDRIN) 12 % cream Apply to affected area as needed for dry skin. apixaban (ELIQUIS) 5 mg tab(s) Take 1 tablet by mouth two times a day. docusate sodium (COLACE) 100 mg capsule Take 1 capsule by mouth two times a day. pantoprazole DR (PROTONIX) 40 mg tablet Take 1 tablet by mouth daily before breakfast. Take on empty stomach, 1/2 hr before meal. metoprolol tartrate 37.5 mg tab Take 1 tablet by mouth every 12 hours. Pregabalin (LYRICA) 200 mg capsule Take 1 capsule by mouth daily at bedtime for 180 days. flash glucose scanning reader (FREESTYLE ANAHI 2 READER) DMII, insulin requiring. Testing 3-5 times q day amLODIPine (NORVASC) 5 mg tablet Take 1 tablet by mouth once daily. atorvastatin (LIPITOR) 10 mg tablet Take 1 tablet by mouth daily at bedtime. budesonide-formoterol (SYMBICORT) 80-4.5 mcg/actuation inhaler Inhale 2 Puffs as instructed two times a day. bumetanide (BUMEX) 1 mg tablet Take 2 tablets by mouth two times a day. flash glucose sensor (FREESTYLE ANAHI 2 SENSOR) kit DMII, insulin requiring. Testing 3-5 times q day insulin glargine (LANTUS SOLOSTAR U-100 INSULIN) 100 unit/mL (3 mL) Inject 20 Units subcutaneously daily at bedtime. ipratropium-albuterol (DUONEB) 0.5 mg-3 mg(2.5 mg base)/3 mL nebu Inhale 3 mL as instructed four times daily. insulin aspart U-100 (NOVOLOG FLEXPEN U-100 INSULIN) 100 unit/mL (3 mL) Use for sliding scale as directed with meals Blood sugar 0-150, no coverage; 151- 200, 2 units; 201- 250 4 units; 251- 300 6 units 301- 350 8 units, > 351 10 units insulin needles, DISPOSABLE, (PEN NEEDLE) 31 gauge x 5/16 Use one needle per dose. 4per day. MULTIVITAMIN-FERROUS FUMARATE-FOLIC ACID 18 MG-400 MCG TABLET Take 1 tablet by mouth daily with breakfast. Melatonin 5 mg cap Take by mouth. acetaminophen (TYLENOL) 650 mg/20.3 mL soln 20.3 mL by ORAL/FEEDING TUBE route every 4 hours as needed for pain. Do not exceed 5 doses in 24 hours. aspirin 81 mg chewable tablet 1 tablet by CORPAK route once daily. magnesium hydroxide (MOM) 400 mg/5 mL suspension 30 mL by CORPAK route every 6 hours as needed. No current facility-administered medications for this visit. FAMILY HISTORY Problem Relation Age of Onset Diabetes Father 2011 with pneumonia other (Dementia) Father Heart Mother CABG 4. Diabetes Sister Ischemic Heart Disease Brother other (Myocardial infarc) Brother Fatal [place] No Ocular Disease No Family History Social History Tobacco Use Smoking status: Every Day Current packs/day: 0.50 Average packs/day: 0.5 packs/day for 45.0 years (22.5 ttl pk-yrs) Types: Cigarettes Smokeless tobacco: Never Vaping Use Vaping status: Never Used Substance Use Topics Alcohol use: Yes Comment: Rarely. 2 beers a year Drug use: No REVIEW OF SYSTEMS Constitutional: (+) insomnia Ears/Nose/Mouth/Throat: (+) ear fullness, (+) hearing loss, (-) ear pain, (-) otorrhea Cardiovascular: (-) chest pain, (-) palpitations Respiratory: (+) cough, (-) hemoptysis Gastrointestinal: (-) hematochezia, (-) melena Genitourinary: (+) polyuria, (-) hematuria, (-) dysuria Musculoskeletal: (+) foot pain, (+) foot numbness, (+) foot tingling, (+) burning sensation of foot Neurological: (+) dizziness, (-) syncope Endocrine: (+) cold intolerance, (+) polydipsia EXAM: BP 133/73 Pulse (!) 59 Resp 16 SpO2 95% PHYSICAL EXAM: General Appearance: Well appearing, alert, in no acute distress, well-hydrated, well nourished.. Skin: Skin color, texture, turgor normal, no suspicious rashes or lesions. Head: Normocephalic, no masses, lesions, tenderness or abnormalities. Eyes: Anicteric sclera. Pupils are equally round and reactive to light. Extraocular movements are intact. . Ears: External ears normal, canals clear, Positive findings: R TM: normal, L TM: normal after cerumen removal. Ear canal red/inflamed. Oropharynx: Lips, mucosa, and tongue normal, teeth and gums normal, oropharynx normal. Neck: Supple, no adenopathy; thyroid symmetric, normal size, no bruits. Lungs: Lungs clear to auscultation. No wheezing, rhonchi, rales.. Heart: RRR without murmur, gallop, or rubs. No ectopy. Abdomen: Abdomen soft, non-tender. Bowel sounds normal. No masses, organomegaly. Extremities: BLE with purplish discoloration in the dependent position. Decreased pedal pulses. +2-+3 cap refill Neurologic: answers questions appropriately. Feet:Shoes and socks removed, No deformities, ulcers, calluses, abnormal pulses Decreased bilaterally, and sensitive to 10 gm monofilament ASSESSMENT/PLAN 1. Uncontrolled type 2 diabetes mellitus with hyperglycemia (HCC) (E11.65) - Blood glucose levels consistently around 200 mg/dL. - Continue Lantus 20 units at bedtime and sliding scale insulin with meals. - Ordered HbA1c to assess 3-month average glucose control. - Advised patient to monitor carbohydrate intake and continue home glucose monitoring. Recheck in 3 months 2. Peripheral vascular disease (I73.9) - Complaints of severe foot pain and cold sensation in feet. - Ordered ultrasound of lower extremities to assess for arterial blockages. - Referral to vascular surgery (Dr. Espinal) for further evaluation and management. 3. Screening for prostate cancer (Z12.5) - Ordered PSA test to screen for prostate cancer. 4. Arterial ischemic stroke, MCA (middle cerebral artery), left, acute (HCC) (I63.512) - History of left MCA stroke affecting right side. - Ordered carotid ultrasound to assess for stenosis. 5. Hyperlipidemia, unspecified hyperlipidemia type (E78.5) - Continue atorvastatin as prescribed. - Ordered lipid panel to assess current lipid levels. 6. Primary hypertension (I10) - Continue amlodipine as prescribed. - Monitor blood pressure regularly. 7. Chronic anticoagulation (Z79.01) - Continue apixaban as prescribed - Monitor for any signs of bleeding or bruising. 8. Bilateral carotid artery stenosis (I65.23) - Ordered carotid ultrasound to assess for stenosis. - Referral to vascular surgery for further evaluation. 9. Impacted cerumen of left ear (H61.22) - Noted soft piece of cerumen in left ear canal on examination. - successfully irrigated by nursing. 10. Acute otitis externa of left ear, unspecified type (H60.502) Start ciprodex. Discussed treatment plan and patient voices understanding. Patient's questions answered appropriately. Medications and potential side effects were discussed and patient voices understanding. Return to the office as scheduled or as needed for worsening/no improvement. Angela Schmid APRN.GUEST HISTORY CLERK Recording using Timescape software for draft documentation of the visit was discussed with the patient/authorized workforce services representative; all questions welcomed and answered. Patient/authorized workforce services representative agreed to proceed Ambulatory Ear Lavage Pre-treatment: No pre-treatment Treatment: Left ear Equipment and Irrigation solution and Volume used: Single use syringe with single use irrigation tip Water Total Irrigation Volume: 200ml Return flow appearance: Clear Other large chunk of debri Patient tolerated procedure: yes Tympanic membrane assessment: Tympanic membrane assessed by LIP pre and post procedure documented in this encounter [facility] 08-07-2024 Note HNO ID: [id number] Author: BEBETO HARO LPN Service: ? Author Type: LICENSED NURSE Type: Progress Notes Filed: 08/07/2024 22:10 Note Text: Ambulatory Ear Lavage Pre-treatment: No pre-treatment Treatment: Left ear Equipment and Irrigation solution and Volume used: Single use syringe with single use irrigation tip Water Total Irrigation Volume: 200ml Return flow appearance: Clear Other large chunk of debri Patient tolerated procedure: yes Tympanic membrane assessment: Tympanic membrane assessed by LIP pre and post procedure [facility] 08-07-2024 Instructions Angela Schmid APRN.GUEST HISTORY CLERK - 08/07/2024 11:25 AM EDT Start the ear drops. Get the labwork. Schedule ultrasound of the neck and legs. Schedule w/ Dr. Espinal. (Vascular). Recheck in 3 months. documented in this encounter [facility] 08-02-2024 Note HNO ID: [id number] Author: ?, ?, ? Service: ? Author Type: ? Type: Progress Notes Filed: 08/02/2024 09:39 Note Text: POPULATION HEALTH NAVIGATION OUTREACH Action/FYI Patient outreach for HCC gaps; Awv, KED,A1C, GAUDENCIO, COLO. Lvm and sent myc to close gaps. Updated appointment notes. Reason for Outreach Care Gap/HCC or Scheduling Wellness Visits Care Gaps due: Medicare Annual Wellness Visit Colorectal Cancer Screening Diabetic Eye Exam HBA1C KED Patient Contacted: Unable or unnecessary to reach patient: Left message [employer] message sent HCC related Updated appointment notes Navigation Signature: Carmen Granger August 02, 2024 9:23 AM [facility] 08-02-2024 History of Presen t illness Narrative POPULATION HEALTH NAVIGATION OUTREACH Action/FYI Patient outreach for HCC gaps; Awv, KED,A1C, GAUDENCIO, COLO. Lvm and sent myc to close gaps. Updated appointment notes. Reason for Outreach Care Gap/HCC or Scheduling Wellness Visits Care Gaps due: Medicare Annual Wellness Visit Colorectal Cancer Screening Diabetic Eye Exam HBA1C KED Patient Contacted: Unable or unnecessary to reach patient: Left message MyChart message sent HCC related Updated appointment notes Navigation Signature: Carmen Granger August 02, 2024 9:23 AM documented in this encounter [facility] 08-02-2024 Note Patient Outreach (DEJAN TNAV) KIEL CATHERINE ([id number]) 1960 M Date Time Provider Department 08/02/24 ALYSON ARTHUR During your visit today, we recorded the following information about you: Carmen Leos 08/02/2024 9:39 AM Signed POPULATION HEALTH NAVIGATION OUTREACH Action/FYI Patient outreach for HCC gaps; Awv, KED,A1C, GAUDENCIO, COLO. Lvm and sent myc to close gaps. Updated appointment notes. Reason for Outreach Care Gap/HCC or Scheduling Wellness Visits Care Gaps due: Medicare Annual Wellness Visit Colorectal Cancer Screening Diabetic Eye Exam HBA1C KED Patient Contacted: Unable or unnecessary to reach patient: Left message [employer] message sent HCC related Updated appointment notes Navigation Signature: Carmen Mckeon Bárbara August 02, 2024 9:23 AM Allergies As of Date: 08/02/2024 Noted Allergy Reaction IODINATED CONTRAST MEDIA 03/16/2023 8 - GI Upset 14 - Other: See Comments Comments: Hypotension, temporary SOB LISINOPRIL 12/01/2017 14 - Other: See Comments Comments: Hyperkalemia PENICILLINS 10/29/2010 2 - Rash FLONASE (FLUTICASONE PROPIONATE) 10/18/2021 14 - Other: See Comments Comments: Nose bleeds Date Reviewed: 02/08/2024 Reviewed by: Margi Riddle APRN.GUEST HISTORY CLERK - Fully Assessed Reason for Visit: Population Health Navigation Outreach [3910] Cmt: Eladio Nuñez Prescriptions as of 08/02/2024 - traZODone (DESYREL) 50 mg tablet Take 1 tablet by mouth daily at bedtime. - pregabalin (LYRICA) 100 mg capsule Take 1 capsule by mouth once daily for 90 days. - ammonium lactate (LAC-HYDRIN) 12 % cream Apply to affected area as needed for dry skin. - apixaban (ELIQUIS) 5 mg tab(s) Take 1 tablet by mouth two times a day. - docusate sodium (COLACE) 100 mg capsule Take 1 capsule by mouth two times a day. - pantoprazole DR (PROTONIX) 40 mg tablet Take 1 tablet by mouth daily before breakfast. Take on empty stomach, 1/2 hr before meal. - metoprolol tartrate 37.5 mg tab Take 1 tablet by mouth every 12 hours. - Pregabalin (LYRICA) 200 mg capsule Take 1 capsule by mouth daily at bedtime for 180 days. - flash glucose scanning reader (FREESTYLE ANAHI 2 READER) DMII, insulin requiring. Testing 3-5 times q day - amLODIPine (NORVASC) 5 mg tablet Take 1 tablet by mouth once daily. - atorvastatin (LIPITOR) 10 mg tablet Take 1 tablet by mouth daily at bedtime. - budesonide-formoterol (SYMBICORT) 80-4.5 mcg/actuation inhaler Inhale 2 Puffs as instructed two times a day. - bumetanide (BUMEX) 1 mg tablet Take 2 tablets by mouth two times a day. - flash glucose sensor (FREESTYLE ANAHI 2 SENSOR) kit DMII, insulin requiring. Testing 3-5 times q day - insulin glargine (LANTUS SOLOSTAR U-100 INSULIN) 100 unit/mL (3 mL) Inject 20 Units subcutaneously daily at bedtime. - ipratropium-albuterol (DUONEB) 0.5 mg-3 mg(2.5 mg base)/3 mL nebu Inhale 3 mL as instructed four times daily. - insulin aspart U-100 (NOVOLOG FLEXPEN U-100 INSULIN) 100 unit/mL (3 mL) Use for sliding scale as directed with meals Blood sugar 0-150, no coverage; 151- 200, 2 units; 201- 250 4 units; 251- 300 6 units 301- 350 8 units, > 351 10 units - insulin needles, DISPOSABLE, (PEN NEEDLE) 31 gauge x 5/16 Use one needle per dose. 4per day. - predniSONE (DELTASONE) 50 mg take 1 tablet 13, 7 (SEVEN), and 1 hour prior DIRECTED - traMADol (ULTRAM) 50 mg tablet Take 1 tablet by mouth every 8 hours as needed for pain for up to 14 days. - ondansetron (ZOFRAN) 4 mg tablet Take 1 tablet by mouth every 8 hours as needed for nausea/vomiting. - MULTIVITAMIN-FERROUS FUMARATE-FOLIC ACID 18 MG-400 MCG TABLET Take 1 tablet by mouth daily with breakfast. - Melatonin 5 mg cap Take by mouth. - acetaminophen (TYLENOL) 650 mg/20.3 mL soln 20.3 mL by ORAL/FEEDING TUBE route every 4 hours as needed for pain. Do not exceed 5 doses in 24 hours. - aspirin 81 mg chewable tablet 1 tablet by CORPAK route once daily. - magnesium hydroxide (MOM) 400 mg/5 mL suspension 30 mL by CORPAK route every 6 hours as needed. - albuterol HFA (PROVENTIL HFA, VENTOLIN HFA) 90 mcg/actuation inhaler Inhale 2 Puffs as instructed every 4 hours as needed for wheezing/shortness of breath. Meds Comments as of 04/29/2014: 04/29/14 - Patient states he is on a 50 mg pain patch but does not know the name. Nitza Guthrie Ma Problem List As Of Date 08/02/2024 Noted Resolved Restrictive lung disease [J98.4] 11/12/2010 MANISH on CPAP [G47.33] 11/09/2012 Bicuspid aortic valve (HCC) [Q23.81] 11/09/2012 Controlled type 2 diabetes mellitus with diabet*11/09/2012 Hyperlipidemia [E78.5] 11/09/2012 Hypertension [I10] 11/09/2012 DDD (degenerative disc disease), lumbar [M51.36*11/09/2012 Bipolar 1 disorder (HCC) [F31.9] 11/09/2012 Morbid obesity with BMI of 50.0-59.9, adult (HC*11/09/2012 LVH (left ventricular (more content not included)... [facility] 07-03-2024 Note HNO ID: [id number] Author: ?, ?, ? Service: ? Author Type: ? Type: Progress Notes Filed: 07/03/2024 10:44 Note Text: POPULATION HEALTH NAVIGATION OUTREACH Action/FYI Patient outreach for Hcc gaps; AWV, COLO, A1C, GAUDENCIO, KED. Lvm and sent mychart to close gaps. Updated appointment notes Reason for Outreach Care Gap/HCC or Scheduling Wellness Visits Care Gaps due: Medicare Annual Wellness Visit Colorectal Cancer Screening Diabetic Eye Exam HBA1C KED Patient Contacted: Unable or unnecessary to reach patient: Left message MyChart message sent HCC related Updated appointment notes Navigation Signature: Carmen Mckeon Pss July 03, 2024 10:35 AM [facility] 07-03-2024 Note Patient Outreach (NE TNAV) JANKIKIEL GARCIA ([id number]) 1960 M Date Time Provider Department 07/03/24 ALYSON ARTHUR During your visit today, we recorded the following information about you: Carmen Leos 07/03/2024 10:44 AM Signed POPULATION HEALTH NAVIGATION OUTREACH Action/FYI Patient outreach for Hcc gaps; AWV, COLO, A1C, GAUDENCIO, KED. Lvm and sent mychart to close gaps. Updated appointment notes Reason for Outreach Care Gap/HCC or Scheduling Wellness Visits Care Gaps due: Medicare Annual Wellness Visit Colorectal Cancer Screening Diabetic Eye Exam HBA1C KED Patient Contacted: Unable or unnecessary to reach patient: Left message MyChart message sent HCC related Updated appointment notes Navigation Signature: Carmen Granger July 03, 2024 10:35 AM Allergies As of Date: 07/03/2024 Noted Allergy Reaction IODINATED CONTRAST MEDIA 03/16/2023 8 - GI Upset 14 - Other: See Comments Comments: Hypotension, temporary SOB LISINOPRIL 12/01/2017 14 - Other: See Comments Comments: Hyperkalemia PENICILLINS 10/29/2010 2 - Rash FLONASE (FLUTICASONE PROPIONATE) 10/18/2021 14 - Other: See Comments Comments: Nose bleeds Date Reviewed: 02/08/2024 Reviewed by: Margi Riddle APRN.GUEST HISTORY CLERK - Fully Assessed Reason for Visit: Population Health Navigation Outreach [3910] Cmt: Eladio Nuñez Prescriptions as of 07/03/2024 - traZODone (DESYREL) 50 mg tablet Take 1 tablet by mouth daily at bedtime. - pregabalin (LYRICA) 100 mg capsule Take 1 capsule by mouth once daily for 90 days. - ammonium lactate (LAC-HYDRIN) 12 % cream Apply to affected area as needed for dry skin. - apixaban (ELIQUIS) 5 mg tab(s) Take 1 tablet by mouth two times a day. - docusate sodium (COLACE) 100 mg capsule Take 1 capsule by mouth two times a day. - pantoprazole DR (PROTONIX) 40 mg tablet Take 1 tablet by mouth daily before breakfast. Take on empty stomach, 1/2 hr before meal. - metoprolol tartrate 37.5 mg tab Take 1 tablet by mouth every 12 hours. - Pregabalin (LYRICA) 200 mg capsule Take 1 capsule by mouth daily at bedtime for 180 days. - flash glucose scanning reader (FREESTYLE ANAHI 2 READER) DMII, insulin requiring. Testing 3-5 times q day - amLODIPine (NORVASC) 5 mg tablet Take 1 tablet by mouth once daily. - atorvastatin (LIPITOR) 10 mg tablet Take 1 tablet by mouth daily at bedtime. - budesonide-formoterol (SYMBICORT) 80-4.5 mcg/actuation inhaler Inhale 2 Puffs as instructed two times a day. - bumetanide (BUMEX) 1 mg tablet Take 2 tablets by mouth two times a day. - flash glucose sensor (FREESTYLE ANAHI 2 SENSOR) kit DMII, insulin requiring. Testing 3-5 times q day - insulin glargine (LANTUS SOLOSTAR U-100 INSULIN) 100 unit/mL (3 mL) Inject 20 Units subcutaneously daily at bedtime. - ipratropium-albuterol (DUONEB) 0.5 mg-3 mg(2.5 mg base)/3 mL nebu Inhale 3 mL as instructed four times daily. - insulin aspart U-100 (NOVOLOG FLEXPEN U-100 INSULIN) 100 unit/mL (3 mL) Use for sliding scale as directed with meals Blood sugar 0-150, no coverage; 151- 200, 2 units; 201- 250 4 units; 251- 300 6 units 301- 350 8 units, > 351 10 units - insulin needles, DISPOSABLE, (PEN NEEDLE) 31 gauge x 5/16 Use one needle per dose. 4per day. - predniSONE (DELTASONE) 50 mg take 1 tablet 13, 7 (SEVEN), and 1 hour prior DIRECTED - traMADol (ULTRAM) 50 mg tablet Take 1 tablet by mouth every 8 hours as needed for pain for up to 14 days. - ondansetron (ZOFRAN) 4 mg tablet Take 1 tablet by mouth every 8 hours as needed for nausea/vomiting. - MULTIVITAMIN-FERROUS FUMARATE-FOLIC ACID 18 MG-400 MCG TABLET Take 1 tablet by mouth daily with breakfast. - Melatonin 5 mg cap Take by mouth. - acetaminophen (TYLENOL) 650 mg/20.3 mL soln 20.3 mL by ORAL/FEEDING TUBE route every 4 hours as needed for pain. Do not exceed 5 doses in 24 hours. - aspirin 81 mg chewable tablet 1 tablet by CORPAK route once daily. - magnesium hydroxide (MOM) 400 mg/5 mL suspension 30 mL by CORPAK route every 6 hours as needed. - albuterol HFA (PROVENTIL HFA, VENTOLIN HFA) 90 mcg/actuation inhaler Inhale 2 Puffs as instructed every 4 hours as needed for wheezing/shortness of breath. Meds Comments as of 04/29/2014: 04/29/14 - Patient states he is on a 50 mg pain patch but does not know the name. Nitza Guthrie Ma Problem List As Of Date 07/03/2024 Noted Resolved Restrictive lung disease [J98.4] 11/12/2010 MANISH on CPAP [G47.33] 11/09/2012 Bicuspid aortic valve [Q23.81] 11/09/2012 Controlled type 2 diabetes mellitus with diabet*11/09/2012 Hyperlipidemia [E78.5] 11/09/2012 Hypertension [I10] 11/09/2012 DDD (degenerative disc disease), lumbar [M51.36*11/09/2012 Bipolar 1 disorder (HCC) [F31.9] 11/09/2012 Morbid obesity with BMI of 50.0-59.9, adult (HC*11/09/2012 LVH (left ventricular h (more content not included)... [facility] 06-21-2024 Telephone encounter Note The following approved medication requests have been transmitted electronically. Requested Prescriptions Signed Prescriptions Disp Refills traZODone (DESYREL) 50 mg tablet 30 tablet 2 Sig: Take 1 tablet by mouth daily at bedtime. Authorizing Provider: MARGI RIDDLE pregabalin (LYRICA) 100 mg capsule 90 capsule 0 Sig: Take 1 capsule by mouth once daily for 90 days. Authorizing Provider: MARGI RIDDLE APRN.GUEST HISTORY CLERK [facility] 06-21-2024 Miscellaneous Notes The following approved medication requests have been transmitted electronically. Requested Prescriptions Signed Prescriptions Disp Refills traZODone (DESYREL) 50 mg tablet 30 tablet 2 Sig: Take 1 tablet by mouth daily at bedtime. Authorizing Provider: MARGI RIDDLE pregabalin (LYRICA) 100 mg capsule 90 capsule 0 Sig: Take 1 capsule by mouth once daily for 90 days. Authorizing Provider: MARGI RIDDLE APRN.CNP The patient has been identified by name and date of : Yes Caregiver verified no other encounters exist for this prescription request: Yes Caregiver confirmed with patient/requestor that no other refills are due, in the near future, with this provider at this time: Yes The last office visit in the department: 02/08/2024 Does the patient have a future office visit with this provider/department: Yes 07/25/2024 Requested Prescriptions Pending Prescriptions Disp Refills traZODone (DESYREL) 50 mg tablet 30 tablet 2 Sig: Take 1 tablet by mouth daily at bedtime. pregabalin (LYRICA) 100 mg capsule 90 capsule 0 Sig: Take 1 capsule by mouth once daily for 90 days. Janki Vale RN documented in this encounter [facility] 06-21-2024 Telephone encounter Note The patient has been identified by name and date of : Yes Caregiver verified no other encounters exist for this prescription request: Yes Caregiver confirmed with patient/requestor that no other refills are due, in the near future, with this provider at this time: Yes The last office visit in the department: 02/08/2024 Does the patient have a future office visit with this provider/department: Yes 07/25/2024 Requested Prescriptions Pending Prescriptions Disp Refills traZODone (DESYREL) 50 mg tablet 30 tablet 2 Sig: Take 1 tablet by mouth daily at bedtime. pregabalin (LYRICA) 100 mg capsule 90 capsule 0 Sig: Take 1 capsule by mouth once daily for 90 days. Janki Vale RN [facility] 06-21-2024 Radiology Diagnostic study note [facility] Imaging Services [address] [place], [place] [id number] Knee 1 or 2 Views MR#: [id number] Acct: [id number] Name: KIEL CATHERINE Rep #: [id number] : 1960 M 63 From: Stefano Quintanilla MD PCP: Dr. Alyson Arthur MD Status: REG C AMAYA Study:Knee 1 or 2 Views Date of Exam: Exam# [id number] Ordering Dr: Lily Sellers MD PROCEDURE: KNEE 1 OR 2 VIEWS 06/20/2024 REASON FOR EXAM: OA TECHNIQUE: AP and lateral view(s) of the right knee COMPARISON: Left knee x-ray performed on the same day. FINDINGS: No fracture or dislocation. No significant osteoarthritis. No suprapatellar joint effusion. Atheromatous calcification present within the arteries. RAD/Knee 1 or 2 Views IMPRESSION: No fracture or dislocation is seen within the right knee. Reading Location: [facility] CC: Dr. Walter Sellers MD; Dr. Alyson Arthur MD ~ Missile Control Pilot: Signed [facility] 06-21-2024 Radiology Diagnostic study note [facility] Imaging Services [address] [place], [place] [address] Knee 1 or 2 Views MR#: [id number] Acct: [id number] Name: KIEL CATHERINE Rep #: [id number] : 1960 M 63 From: Stefano Quintanilla MD PCP: Dr. Alyson Arthur MD Status: REG Nathen CONDE Study:Knee 1 or 2 Views Date of Exam: Exam# [id number] Ordering Dr: Lily Sellers MD PROCEDURE: KNEE 1 OR 2 VIEWS REASON FOR EXAM: OA TECHNIQUE: AP and lateral view(s) of the left knee COMPARISON: Right knee x-ray performed on 06/20/2024. FINDINGS: Irregularity seen within the proximal metadiaphysis of the fibula bone seen on the lateral view. This is worrisome for minimally displaced fracture. No significant osteoarthritis. No suprapatellar joint effusion. Atheromatous disease calcification is present. RAD/Knee 1 or 2 Views IMPRESSION: Findings worrisome for minimally displaced fracture of the proximal fibula metadiaphysis under left side. Correlate clinically for site of pain. No significant osteoarthritis seen on the left side. Reading Location: [facility] CC: Dr. Walter Sellers MD; Dr. Alyson Arthur MD ~ Missile Control Pilot: Signed [facility] 06-03-2024 Note HNO ID: [id number] Author: ?, ?, ? Service: ? Author Type: ? Type: Progress Notes Filed: 06/03/2024 13:28 Note Text: POPULATION HEALTH NAVIGATION OUTREACH Action/FYI Patient outreach for HCC gaps; A1C,KED, DIABETIC EYE, COLO, BP, AWV. Spoke with patient but could not schedule. Needs daughter to help him, will call back. Reason for Outreach Care Gap/HCC or Scheduling Wellness Visits Care Gaps due: Medicare Annual Wellness Visit Controlling Blood Pressure Colorectal Cancer Screening Diabetic Eye Exam HBA1C KED Patient Contacted: Spoke to patient/parent/or legal guardian Patient identified by name and : Yes Care Gap/HCC/Scheduling Wellness actions taken: Patient declined: Patient requested call back from navigator/ will call navigator back HCC related Navigation Signature: Carmen Linda Pss June 03, 2024 1:24 PM [facility] 06-03-2024 History of Presen t illness Narrative POPULATION HEALTH NAVIGATION OUTREACH Action/FYI Patient outreach for HCC gaps; A1C,KED, DIABETIC EYE, COLO, BP, AWV. Spoke with patient but could not schedule. Needs daughter to help him, will call back. Reason for Outreach Care Gap/HCC or Scheduling Wellness Visits Care Gaps due: Medicare Annual Wellness Visit Controlling Blood Pressure Colorectal Cancer Screening Diabetic Eye Exam HBA1C KED Patient Contacted: Spoke to patient/parent/or legal guardian Patient identified by name and : Yes Care Gap/HCC/Scheduling Wellness actions taken: Patient declined: Patient requested call back from navigator/ will call navigator back HCC related Navigation Signature: Carmen Granger June 03, 2024 1:24 PM documented in this encounter [facility] 06-03-2024 Note Patient Outreach (DEJAN TNAV) KIEL CATHERINE ([id number]) 1960 M Date Time Provider Department 06/03/24 ALYSON ARTHUR During your visit today, we recorded the following information about you: Carmen Leos 06/03/2024 1:28 PM Signed POPULATION HEALTH NAVIGATION OUTREACH Action/FYI Patient outreach for HCC gaps; A1C,KED, DIABETIC EYE, COLO, BP, AWV. Spoke with patient but could not schedule. Needs daughter to help him, will call back. Reason for Outreach Care Gap/HCC or Scheduling Wellness Visits Care Gaps due: Medicare Annual Wellness Visit Controlling Blood Pressure Colorectal Cancer Screening Diabetic Eye Exam HBA1C KED Patient Contacted: Spoke to patient/parent/or legal guardian Patient identified by name and : Yes Care Gap/HCC/Scheduling Wellness actions taken: Patient declined: Patient requested call back from navigator/ will call navigator back HCC related Navigation Signature: Carmen Granger June 03, 2024 1:24 PM Allergies As of Date: 06/03/2024 Noted Allergy Reaction IODINATED CONTRAST MEDIA 03/16/2023 8 - GI Upset 14 - Other: See Comments Comments: Hypotension, temporary SOB LISINOPRIL 12/01/2017 14 - Other: See Comments Comments: Hyperkalemia PENICILLINS 10/29/2010 2 - Rash FLONASE (FLUTICASONE PROPIONATE) 10/18/2021 14 - Other: See Comments Comments: Nose bleeds Date Reviewed: 02/08/2024 Reviewed by: Margi Riddle APRN.GUEST HISTORY CLERK - Fully Assessed Reason for Visit: Population Health Navigation Outreach [3910] Cmt: Eladio Nuñez Prescriptions as of 06/07/2024 - ammonium lactate (LAC-HYDRIN) 12 % cream Apply to affected area as needed for dry skin. - apixaban (ELIQUIS) 5 mg tab(s) Take 1 tablet by mouth two times a day. - docusate sodium (COLACE) 100 mg capsule Take 1 capsule by mouth two times a day. - pantoprazole DR (PROTONIX) 40 mg tablet Take 1 tablet by mouth daily before breakfast. Take on empty stomach, 1/2 hr before meal. - metoprolol tartrate 37.5 mg tab Take 1 tablet by mouth every 12 hours. - traZODone (DESYREL) 50 mg tablet Take 1 tablet by mouth daily at bedtime. - Pregabalin (LYRICA) 200 mg capsule Take 1 capsule by mouth daily at bedtime for 180 days. - pregabalin (LYRICA) 100 mg capsule Take 1 capsule by mouth once daily for 90 days. - flash glucose scanning reader ([place] HeelsSTYLE ANAHI 2 READER) DMII, insulin requiring. Testing 3-5 times q day - amLODIPine (NORVASC) 5 mg tablet Take 1 tablet by mouth once daily. - atorvastatin (LIPITOR) 10 mg tablet Take 1 tablet by mouth daily at bedtime. - budesonide-formoterol (SYMBICORT) 80-4.5 mcg/actuation inhaler Inhale 2 Puffs as instructed two times a day. - bumetanide (BUMEX) 1 mg tablet Take 2 tablets by mouth two times a day. - flash glucose sensor (FREESTYLE ANAHI 2 SENSOR) kit DMII, insulin requiring. Testing 3-5 times q day - insulin glargine (LANTUS SOLOSTAR U-100 INSULIN) 100 unit/mL (3 mL) Inject 20 Units subcutaneously daily at bedtime. - ipratropium-albuterol (DUONEB) 0.5 mg-3 mg(2.5 mg base)/3 mL nebu Inhale 3 mL as instructed four times daily. - insulin aspart U-100 (NOVOLOG FLEXPEN U-100 INSULIN) 100 unit/mL (3 mL) Use for sliding scale as directed with meals Blood sugar 0-150, no coverage; 151- 200, 2 units; 201- 250 4 units; 251- 300 6 units 301- 350 8 units, > 351 10 units - insulin needles, DISPOSABLE, (PEN NEEDLE) 31 gauge x 5/16 Use one needle per dose. 4per day. - predniSONE (DELTASONE) 50 mg take 1 tablet 13, 7 (SEVEN), and 1 hour prior DIRECTED - traMADol (ULTRAM) 50 mg tablet Take 1 tablet by mouth every 8 hours as needed for pain for up to 14 days. - ondansetron (ZOFRAN) 4 mg tablet Take 1 tablet by mouth every 8 hours as needed for nausea/vomiting. - MULTIVITAMIN-FERROUS FUMARATE-FOLIC ACID 18 MG-400 MCG TABLET Take 1 tablet by mouth daily with breakfast. - Melatonin 5 mg cap Take by mouth. - acetaminophen (TYLENOL) 650 mg/20.3 mL soln 20.3 mL by ORAL/FEEDING TUBE route every 4 hours as needed for pain. Do not exceed 5 doses in 24 hours. - aspirin 81 mg chewable tablet 1 tablet by CORPAK route once daily. - magnesium hydroxide (MOM) 400 mg/5 mL suspension 30 mL by CORPAK route every 6 hours as needed. - albuterol HFA (PROVENTIL HFA, VENTOLIN HFA) 90 mcg/actuation inhaler Inhale 2 Puffs as instructed every 4 hours as needed for wheezing/shortness of breath. Meds Comments as of 04/29/2014: 04/29/14 - Patient states he is on a 50 mg pain patch but does not know the name. Nitza Guthrie Ma Problem List As Of Date 06/03/2024 Noted Resolved Restrictive lung disease [J98.4] 11/12/2010 MANISH on CPAP [G47.33] 11/09/2012 Bicuspid aortic valve [Q23.81] 11/09/2012 Controlled type 2 diabetes mellitus with diabet*11/09/2012 Hyperlipidemia [E78.5] 11/09/2012 Hypertension [I10] 11/09/2012 DDD (d (more content not included)... [facility] 05-21-2024 History of Presen t illness Narrative Primary Care Pharmacy Panel Management This patient has been identified through Specialty Integration/Value-Based Operations Diabetes Registry Review by the primary care pharmacy team. Please contact patient and schedule a pharmacy in-person, phone, or virtual visit for diabetes management. Please use New Pharmacy, New Pharmacy Phone call, or Video Primary New visit types. Thank you, Marline Serrano PharmD, GREGG documented in this encounter [facility] 05-21-2024 Note HNO ID: [id number] Author: MARLINE SERRANO RPh Service: ? Author Type: Pharmacist Type: Progress Notes Filed: 05/21/2024 10:56 Note Text: Primary Care Pharmacy Panel Management This patient has been identified through Specialty Integration/Value-Based Operations Diabetes Registry Review by the primary care pharmacy team. Please contact patient and schedule a pharmacy in-person, phone, or virtual visit for diabetes management. Please use New Pharmacy, New Pharmacy Phone call, or Video Primary New visit types. Thank you, Marline Serrano PharmD, BASILIOCP [facility] 05-21-2024 Note Patient Outreach (PM STOW) KIEL CATHERINE ([id number]) 1960 Date Time Provider Department 05/21/24 MARLINE SERRANO PMSTOW During your visit today, we recorded the following information about you: Marline Serrano RPh 05/21/2024 10:56 AM Signed Primary Care Pharmacy Panel Management This patient has been identified through Specialty Integration/Value-Based Operations Diabetes Registry Review by the primary care pharmacy team. Please contact patient and schedule a pharmacy in-person, phone, or virtual visit for diabetes management. Please use New Pharmacy, New Pharmacy Phone call, or Video Primary New visit types. Thank you, Marline Serrano PharmD, GREGG Allergies As of Date: 05/21/2024 Noted Allergy Reaction IODINATED CONTRAST MEDIA 03/16/2023 8 - GI Upset 14 - Other: See Comments Comments: Hypotension, temporary SOB LISINOPRIL 12/01/2017 14 - Other: See Comments Comments: Hyperkalemia PENICILLINS 10/29/2010 2 - Rash FLONASE (FLUTICASONE PROPIONATE) 10/18/2021 14 - Other: See Comments Comments: Nose bleeds Date Reviewed: 02/08/2024 Reviewed by: Margi Riddle APRN.GUEST HISTORY CLERK - Fully Assessed Reason for Visit: Care Coordination [5371] Cmt: Referred to Pharmacy for Diabetes Management Primary Visit Diagnosis:Type 2 diabetes mellitus with hyperglycemia, with long-term current use of insulin ([facility]) [E11.65, Z79.4] Order(s):CONSULT TO PHARMACY [280176] Order #: [id number]: 1 Prescriptions as of 05/21/2024 - ammonium lactate (LAC-HYDRIN) 12 % cream Apply to affected area as needed for dry skin. - apixaban (ELIQUIS) 5 mg tab(s) Take 1 tablet by mouth two times a day. - docusate sodium (COLACE) 100 mg capsule Take 1 capsule by mouth two times a day. - pantoprazole DR (PROTONIX) 40 mg tablet Take 1 tablet by mouth daily before breakfast. Take on empty stomach, 1/2 hr before meal. - metoprolol tartrate 37.5 mg tab Take 1 tablet by mouth every 12 hours. - traZODone (DESYREL) 50 mg tablet Take 1 tablet by mouth daily at bedtime. - Pregabalin (LYRICA) 200 mg capsule Take 1 capsule by mouth daily at bedtime for 180 days. - pregabalin (LYRICA) 100 mg capsule Take 1 capsule by mouth once daily for 90 days. - flash glucose scanning reader ([place] HeelsSTYLE ANAHI 2 READER) DMII, insulin requiring. Testing 3-5 times q day - amLODIPine (NORVASC) 5 mg tablet Take 1 tablet by mouth once daily. - atorvastatin (LIPITOR) 10 mg tablet Take 1 tablet by mouth daily at bedtime. - budesonide-formoterol (SYMBICORT) 80-4.5 mcg/actuation inhaler Inhale 2 Puffs as instructed two times a day. - bumetanide (BUMEX) 1 mg tablet Take 2 tablets by mouth two times a day. - flash glucose sensor (FREESTYLE ANAHI 2 SENSOR) kit DMII, insulin requiring. Testing 3-5 times q day - insulin glargine (LANTUS SOLOSTAR U-100 INSULIN) 100 unit/mL (3 mL) Inject 20 Units subcutaneously daily at bedtime. - ipratropium-albuterol (DUONEB) 0.5 mg-3 mg(2.5 mg base)/3 mL nebu Inhale 3 mL as instructed four times daily. - insulin aspart U-100 (NOVOLOG FLEXPEN U-100 INSULIN) 100 unit/mL (3 mL) Use for sliding scale as directed with meals Blood sugar 0-150, no coverage; 151- 200, 2 units; 201- 250 4 units; 251- 300 6 units 301- 350 8 units, > 351 10 units - insulin needles, DISPOSABLE, (PEN NEEDLE) 31 gauge x 5/16 Use one needle per dose. 4per day. - predniSONE (DELTASONE) 50 mg take 1 tablet 13, 7 (SEVEN), and 1 hour prior DIRECTED - traMADol (ULTRAM) 50 mg tablet Take 1 tablet by mouth every 8 hours as needed for pain for up to 14 days. - ondansetron (ZOFRAN) 4 mg tablet Take 1 tablet by mouth every 8 hours as needed for nausea/vomiting. - MULTIVITAMIN-FERROUS FUMARATE-FOLIC ACID 18 MG-400 MCG TABLET Take 1 tablet by mouth daily with breakfast. - polyethylene glycol 3350 17 gram packet Take 1 Packet by mouth once daily. Dissolve dose in 4 - 8 ounces of liquid and take as directed. - Melatonin 5 mg cap Take by mouth. - acetaminophen (TYLENOL) 650 mg/20.3 mL soln 20.3 mL by ORAL/FEEDING TUBE route every 4 hours as needed for pain. Do not exceed 5 doses in 24 hours. - aspirin 81 mg chewable tablet 1 tablet by CORPAK route once daily. - magnesium hydroxide (MOM) 400 mg/5 mL suspension 30 mL by CORPAK route every 6 hours as needed. - albuterol HFA (PROVENTIL HFA, VENTOLIN HFA) 90 mcg/actuation inhaler Inhale 2 Puffs as instructed every 4 hours as needed for wheezing/shortness of breath. Meds Comments as of 04/29/2014: 04/29/14 - Patient states he is on a 50 mg pain patch but does not know the name. Nizta Guthrie Little Problem List As Of Date 05/21/2024 Noted Resolved Restrictive lung disease [J98.4] 11/12/2010 MANISH on CPAP [G47.33] 11/09/2012 Bicuspid aortic valve [Q23.81] 11/09/2012 Controlled type 2 diabetes mellitus with diabet*11/09/2012 Hyperlipidemia [E78.5] 11/09/2012 Hypertension [I10] 10/15 (more content not included)... [facility] 05-14-2024 Telephone encounter Note Prescription Refill Information The patient has been identified by name and date of : Yes Caregiver verified no other encounters exist for this prescription request: Yes Caregiver confirmed with patient/requestor that no other refills are due, in the near future, with this provider at this time: Yes The last office visit in the department: 02-08-24 Does the patient have a future office visit with this provider/department: No Requested Prescriptions Pending Prescriptions Disp Refills ammonium lactate (LAC-HYDRIN) 12 % cream 385 g 3 Sig: Apply to affected area as needed for dry skin. Mel Land May 14, 2024 4:29 PM [facility] 05-14-2024 Miscellaneous Notes Prescription Refill Information The patient has been identified by name and date of : Yes Caregiver verified no other encounters exist for this prescription request: Yes Caregiver confirmed with patient/requestor that no other refills are due, in the near future, with this provider at this time: Yes The last office visit in the department: 02-08-24 Does the patient have a future office visit with this provider/department: No Requested Prescriptions Pending Prescriptions Disp Refills ammonium lactate (LAC-HYDRIN) 12 % cream 385 g 3 Sig: Apply to affected area as needed for dry skin. Mel Land May 14, 2024 4:29 PM documented in this encounter [facility] 05-03-2024 Note HNO ID: [id number] Author: ?, ?, ? Service: ? Author Type: ? Type: Progress Notes Filed: 05/03/2024 12:24 Note Text: POPULATION HEALTH NAVIGATION OUTREACH Action/FYI Patient outreach for AWV, FOLLOW UP APPT, COLO, DIABETIC EYE EXAM, KED, BP DUE, A1C. NO LABS PENDING DUE TO NOT SPEAKING TO PATIENT. Reason for Outreach Care Gap/HCC or Scheduling Wellness Visits Care Gaps due: Medicare Annual Wellness Visit Follow-up Appointment Controlling Blood Pressure Colorectal Cancer Screening Diabetic Eye Exam HBA1C KED Patient Contacted: Unable or unnecessary to reach patient: BlockScore message sent HCC related Navigation Signature: Carmen Granger May 03, 2024 8:34 AM [facility] 05-03-2024 History of Presen t illness Narrative POPULATION HEALTH NAVIGATION OUTREACH Action/FYI Patient outreach for AWV, FOLLOW UP APPT, COLO, DIABETIC EYE EXAM, KED, BP DUE, A1C. NO LABS PENDING DUE TO NOT SPEAKING TO PATIENT. Reason for Outreach Care Gap/HCC or Scheduling Wellness Visits Care Gaps due: Medicare Annual Wellness Visit Follow-up Appointment Controlling Blood Pressure Colorectal Cancer Screening Diabetic Eye Exam HBA1C KED Patient Contacted: Unable or unnecessary to reach patient: BlockScore message sent HCC related Navigation Signature: Carmen Granger May 03, 2024 8:34 AM documented in this encounter [facility] 05-03-2024 Note Patient Outreach (DEJAN TNAV) KIEL CATHERINE ([id number]) 1960 M Date Time Provider Department 05/03/24 ALYSON ARTHUR During your visit today, we recorded the following information about you: Carmen Leos 05/03/2024 12:24 PM Addendum POPULATION HEALTH NAVIGATION OUTREACH Action/FYI Patient outreach for AWV, FOLLOW UP APPT, COLO, DIABETIC EYE EXAM, KED, BP DUE, A1C. NO LABS PENDING DUE TO NOT SPEAKING TO PATIENT. Reason for Outreach Care Gap/HCC or Scheduling Wellness Visits Care Gaps due: Medicare Annual Wellness Visit Follow-up Appointment Controlling Blood Pressure Colorectal Cancer Screening Diabetic Eye Exam HBA1C KED Patient Contacted: Unable or unnecessary to reach patient: BlockScore message sent HCC related Navigation Signature: Carmen Kennedyjudahbrittany Bárbara May 03, 2024 8:34 AM Allergies As of Date: 05/03/2024 Noted Allergy Reaction IODINATED CONTRAST MEDIA 03/16/2023 8 - GI Upset 14 - Other: See Comments Comments: Hypotension, temporary SOB LISINOPRIL 12/01/2017 14 - Other: See Comments Comments: Hyperkalemia PENICILLINS 10/29/2010 2 - Rash FLONASE (FLUTICASONE PROPIONATE) 10/18/2021 14 - Other: See Comments Comments: Nose bleeds Date Reviewed: 02/08/2024 Reviewed by: Margi Riddle APRN.GUEST HISTORY CLERK - Fully Assessed Reason for Visit: Population Health Navigation Outreach [3910] Cmt: Eladio Nuñez Prescriptions as of 05/03/2024 - apixaban (ELIQUIS) 5 mg tab(s) Take 1 tablet by mouth two times a day. - docusate sodium (COLACE) 100 mg capsule Take 1 capsule by mouth two times a day. - pantoprazole DR (PROTONIX) 40 mg tablet Take 1 tablet by mouth daily before breakfast. Take on empty stomach, 1/2 hr before meal. - metoprolol tartrate 37.5 mg tab Take 1 tablet by mouth every 12 hours. - traZODone (DESYREL) 50 mg tablet Take 1 tablet by mouth daily at bedtime. - Pregabalin (LYRICA) 200 mg capsule Take 1 capsule by mouth daily at bedtime for 180 days. - pregabalin (LYRICA) 100 mg capsule Take 1 capsule by mouth once daily for 90 days. - flash glucose scanning reader ([employer] ANAHI 2 READER) DMII, insulin requiring. Testing 3-5 times q day - amLODIPine (NORVASC) 5 mg tablet Take 1 tablet by mouth once daily. - ammonium lactate (LAC-HYDRIN) 12 % cream Apply to affected area as needed for dry skin. - atorvastatin (LIPITOR) 10 mg tablet Take 1 tablet by mouth daily at bedtime. - budesonide-formoterol (SYMBICORT) 80-4.5 mcg/actuation inhaler Inhale 2 Puffs as instructed two times a day. - bumetanide (BUMEX) 1 mg tablet Take 2 tablets by mouth two times a day. - flash glucose sensor (FREESTYLE ANAHI 2 SENSOR) kit DMII, insulin requiring. Testing 3-5 times q day - insulin glargine (LANTUS SOLOSTAR U-100 INSULIN) 100 unit/mL (3 mL) Inject 20 Units subcutaneously daily at bedtime. - ipratropium-albuterol (DUONEB) 0.5 mg-3 mg(2.5 mg base)/3 mL nebu Inhale 3 mL as instructed four times daily. - insulin aspart U-100 (NOVOLOG FLEXPEN U-100 INSULIN) 100 unit/mL (3 mL) Use for sliding scale as directed with meals Blood sugar 0-150, no coverage; 151- 200, 2 units; 201- 250 4 units; 251- 300 6 units 301- 350 8 units, > 351 10 units - insulin needles, DISPOSABLE, (PEN NEEDLE) 31 gauge x 5/16 Use one needle per dose. 4per day. - predniSONE (DELTASONE) 50 mg take 1 tablet 13, 7 (SEVEN), and 1 hour prior DIRECTED - traMADol (ULTRAM) 50 mg tablet Take 1 tablet by mouth every 8 hours as needed for pain for up to 14 days. - ondansetron (ZOFRAN) 4 mg tablet Take 1 tablet by mouth every 8 hours as needed for nausea/vomiting. - MULTIVITAMIN-FERROUS FUMARATE-FOLIC ACID 18 MG-400 MCG TABLET Take 1 tablet by mouth daily with breakfast. - polyethylene glycol 3350 17 gram packet Take 1 Packet by mouth once daily. Dissolve dose in 4 - 8 ounces of liquid and take as directed. - Melatonin 5 mg cap Take by mouth. - acetaminophen (TYLENOL) 650 mg/20.3 mL soln 20.3 mL by ORAL/FEEDING TUBE route every 4 hours as needed for pain. Do not exceed 5 doses in 24 hours. - aspirin 81 mg chewable tablet 1 tablet by CORPAK route once daily. - magnesium hydroxide (MOM) 400 mg/5 mL suspension 30 mL by CORPAK route every 6 hours as needed. - albuterol HFA (PROVENTIL HFA, VENTOLIN HFA) 90 mcg/actuation inhaler Inhale 2 Puffs as instructed every 4 hours as needed for wheezing/shortness of breath. Meds Comments as of 04/29/2014: 04/29/14 - Patient states he is on a 50 mg pain patch but does not know the name. Nitza Guthrie Ma Problem List As Of Date 05/03/2024 Noted Resolved Restrictive lung disease [J98.4] 11/12/2010 MANISH on CPAP [G47.33] 11/09/2012 Bicuspid aortic valve [Q23.81] 11/09/2012 Controlled type 2 diabetes mellitus with diabet*11/09/2012 Hyperlipidemia [E78.5] 11/09/2012 Hypertension [I10] 11/09/2012 DDD (degenerative d (more content not included)... [facility] 05-01-2024 Telephone encounter Note The patient has been identified by name and date of : Yes Caregiver verified no other encounters exist for this prescription request: Yes Caregiver confirmed with patient/requestor that no other refills are due, in the near future, with this provider at this time: Yes The last office visit in the department: 02/08/2024 Does the patient have a future office visit with this provider/department: No Requested Prescriptions Pending Prescriptions Disp Refills apixaban (ELIQUIS) 5 mg tab(s) 60 tablet 11 Sig: Take 1 tablet by mouth two times a day. Joan Gallardo RN May 01, 2024 9:57 AM [facility] 05-01-2024 Miscellaneous Notes The patient has been identified by name and date of : Yes Caregiver verified no other encounters exist for this prescription request: Yes Caregiver confirmed with patient/requestor that no other refills are due, in the near future, with this provider at this time: Yes The last office visit in the department: 02/08/2024 Does the patient have a future office visit with this provider/department: No Requested Prescriptions Pending Prescriptions Disp Refills apixaban (ELIQUIS) 5 mg tab(s) 60 tablet 11 Sig: Take 1 tablet by mouth two times a day. Joan Gallardo RN May 01, 2024 9:57 AM documented in this encounter [facility] 04-03-2024 Note HNO ID: [id number] Author: DENNYS VÁSQUEZ MA Service: ? Author Type: Ld Teacher Type: Progress Notes Filed: 04/03/2024 14:26 Note Text: POPULATION HEALTH NAVIGATION OUTREACH Action/I msg to schedule wellness, hcc gap closure, diabetic retinal eye exam, ked/ uacr and bmp not pended as I didn't speak to the patient , follow up, colonoscopy, bp to be addressed as not compliant not <130/80 Reason for Outreach Care Gap/HCC or Scheduling Wellness Visits Care Gaps due: Medicare Annual Wellness Visit Follow-up Appointment Controlling Blood Pressure Colorectal Cancer Screening Diabetic Eye Exam KED Patient Contacted: Unable or unnecessary to reach patient: Unable to leave message BlockScore message sent HCC related Navigation Signature: Dennys Vásquez MA April 03, 2024 2:23 PM [facility] 04-03-2024 History of Presen t illness Narrative POPULATION HEALTH NAVIGATION OUTREACH Action/FYI msg to schedule wellness, hcc gap closure, diabetic retinal eye exam, ked/ uacr and bmp not pended as I didn't speak to the patient , follow up, colonoscopy, bp to be addressed as not compliant not <130/80 Reason for Outreach Care Gap/HCC or Scheduling Wellness Visits Care Gaps due: Medicare Annual Wellness Visit Follow-up Appointment Controlling Blood Pressure Colorectal Cancer Screening Diabetic Eye Exam KED Patient Contacted: Unable or unnecessary to reach patient: Unable to leave message BlockScore message sent HCC related Navigation Signature: Dennys Vásquez MA April 03, 2024 2:23 PM documented in this encounter [facility] 04-03-2024 Note Patient Outreach (DEJAN ADHIKARI) JANKIKIEL GARCIA ([id number]) 1960 M Date Time Provider Department 04/03/24 DENYNS VÁSQUEZ During your visit today, we recorded the following information about you: Dennys Vásquez MA 04/03/2024 2:26 PM Signed POPULATION HEALTH NAVIGATION OUTREACH Action/FYI msg to schedule wellness, hcc gap closure, diabetic retinal eye exam, ked/ uacr and bmp not pended as I didn't speak to the patient , follow up, colonoscopy, bp to be addressed as not compliant not <130/80 Reason for Outreach Care Gap/HCC or Scheduling Wellness Visits Care Gaps due: Medicare Annual Wellness Visit Follow-up Appointment Controlling Blood Pressure Colorectal Cancer Screening Diabetic Eye Exam KED Patient Contacted: Unable or unnecessary to reach patient: Unable to leave message BlockScore message sent HCC related Navigation Signature: Dennys Vásquez MA April 03, 2024 2:23 PM Allergies As of Date: 04/03/2024 Noted Allergy Reaction IODINATED CONTRAST MEDIA 03/16/2023 8 - GI Upset 14 - Other: See Comments Comments: Hypotension, temporary SOB LISINOPRIL 12/01/2017 14 - Other: See Comments Comments: Hyperkalemia PENICILLINS 10/29/2010 2 - Rash FLONASE (FLUTICASONE PROPIONATE) 10/18/2021 14 - Other: See Comments Comments: Nose bleeds Date Reviewed: 02/08/2024 Reviewed by: Margi Riddle APRN.GUEST HISTORY CLERK - Fully Assessed Reason for Visit: Population Health Navigation Outreach [3910] Cmt: eladio nuñez Prescriptions as of 04/03/2024 - docusate sodium (COLACE) 100 mg capsule Take 1 capsule by mouth two times a day. - pantoprazole DR (PROTONIX) 40 mg tablet Take 1 tablet by mouth daily before breakfast. Take on empty stomach, 1/2 hr before meal. - metoprolol tartrate 37.5 mg tab Take 1 tablet by mouth every 12 hours. - traZODone (DESYREL) 50 mg tablet Take 1 tablet by mouth daily at bedtime. - Pregabalin (LYRICA) 200 mg capsule Take 1 capsule by mouth daily at bedtime for 180 days. - pregabalin (LYRICA) 100 mg capsule Take 1 capsule by mouth once daily for 90 days. - flash glucose scanning reader ([employer] ANAHI 2 READER) DMII, insulin requiring. Testing 3-5 times q day - amLODIPine (NORVASC) 5 mg tablet Take 1 tablet by mouth once daily. - ammonium lactate (LAC-HYDRIN) 12 % cream Apply to affected area as needed for dry skin. - atorvastatin (LIPITOR) 10 mg tablet Take 1 tablet by mouth daily at bedtime. - budesonide-formoterol (SYMBICORT) 80-4.5 mcg/actuation inhaler Inhale 2 Puffs as instructed two times a day. - bumetanide (BUMEX) 1 mg tablet Take 2 tablets by mouth two times a day. - flash glucose sensor (FREESTYLE ANAHI 2 SENSOR) kit DMII, insulin requiring. Testing 3-5 times q day - insulin glargine (LANTUS SOLOSTAR U-100 INSULIN) 100 unit/mL (3 mL) Inject 20 Units subcutaneously daily at bedtime. - ipratropium-albuterol (DUONEB) 0.5 mg-3 mg(2.5 mg base)/3 mL nebu Inhale 3 mL as instructed four times daily. - insulin aspart U-100 (NOVOLOG FLEXPEN U-100 INSULIN) 100 unit/mL (3 mL) Use for sliding scale as directed with meals Blood sugar 0-150, no coverage; 151- 200, 2 units; 201- 250 4 units; 251- 300 6 units 301- 350 8 units, > 351 10 units - insulin needles, DISPOSABLE, (PEN NEEDLE) 31 gauge x 5/16 Use one needle per dose. 4per day. - predniSONE (DELTASONE) 50 mg take 1 tablet 13, 7 (SEVEN), and 1 hour prior DIRECTED - traMADol (ULTRAM) 50 mg tablet Take 1 tablet by mouth every 8 hours as needed for pain for up to 14 days. - ondansetron (ZOFRAN) 4 mg tablet Take 1 tablet by mouth every 8 hours as needed for nausea/vomiting. - apixaban (ELIQUIS) 5 mg tab(s) Take 1 tablet by mouth two times a day. - MULTIVITAMIN-FERROUS FUMARATE-FOLIC ACID 18 MG-400 MCG TABLET Take 1 tablet by mouth daily with breakfast. - polyethylene glycol 3350 17 gram packet Take 1 Packet by mouth once daily. Dissolve dose in 4 - 8 ounces of liquid and take as directed. - Melatonin 5 mg cap Take by mouth. - acetaminophen (TYLENOL) 650 mg/20.3 mL soln 20.3 mL by ORAL/FEEDING TUBE route every 4 hours as needed for pain. Do not exceed 5 doses in 24 hours. - aspirin 81 mg chewable tablet 1 tablet by CORPAK route once daily. - magnesium hydroxide (MOM) 400 mg/5 mL suspension 30 mL by CORPAK route every 6 hours as needed. - albuterol HFA (PROVENTIL HFA, VENTOLIN HFA) 90 mcg/actuation inhaler Inhale 2 Puffs as instructed every 4 hours as needed for wheezing/shortness of breath. Meds Comments as of 04/29/2014: 04/29/14 - Patient states he is on a 50 mg pain patch but does not know the name. Nitza Guthrie Ma Problem List As Of Date 04/03/2024 Noted Resolved Restrictive lung disease [J98.4] 11/12/2010 MANISH on CPAP [G47.33] 11/09/2012 Bicuspid aortic valve [Q23.81] 11/09/2012 Controlled type 2 diabetes mellitus with diabet*11/09/2012 Hype (more content not included)... [facility] 03-28-2024 Telephone encounter Note The following approved medication requests have been transmitted electronically. Requested Prescriptions Pending Prescriptions Disp Refills docusate sodium (COLACE) 100 mg capsule 180 capsule 1 Sig: Take 1 capsule by mouth two times a day. pantoprazole DR (PROTONIX) 40 mg tablet 90 tablet 1 Sig: Take 1 tablet by mouth daily before breakfast. Take on empty stomach, 1/2 hr before meal. metoprolol tartrate 37.5 mg tab 180 tablet 1 Sig: Take 1 tablet by mouth every 12 hours. traZODone (DESYREL) 50 mg tablet 30 tablet 2 Sig: Take 1 tablet by mouth daily at bedtime. Pregabalin (LYRICA) 200 mg capsule 90 capsule 1 Sig: Take 1 capsule by mouth daily at bedtime for 180 days. pregabalin (LYRICA) 100 mg capsule 90 capsule 0 Sig: Take 1 capsule by mouth once daily for 90 days. Margi Riddle APRN.CNP [facility] 03-28-2024 Miscellaneous Notes The following approved medication requests have been transmitted electronically. Requested Prescriptions Pending Prescriptions Disp Refills docusate sodium (COLACE) 100 mg capsule 180 capsule 1 Sig: Take 1 capsule by mouth two times a day. pantoprazole DR (PROTONIX) 40 mg tablet 90 tablet 1 Sig: Take 1 tablet by mouth daily before breakfast. Take on empty stomach, 1/2 hr before meal. metoprolol tartrate 37.5 mg tab 180 tablet 1 Sig: Take 1 tablet by mouth every 12 hours. traZODone (DESYREL) 50 mg tablet 30 tablet 2 Sig: Take 1 tablet by mouth daily at bedtime. Pregabalin (LYRICA) 200 mg capsule 90 capsule 1 Sig: Take 1 capsule by mouth daily at bedtime for 180 days. pregabalin (LYRICA) 100 mg capsule 90 capsule 0 Sig: Take 1 capsule by mouth once daily for 90 days. Margi Riddle APRN.CNP The patient has been identified by name and date of : Yes Caregiver verified no other encounters exist for this prescription request: Yes Caregiver confirmed with patient/requestor that no other refills are due, in the near future, with this provider at this time: Yes The last office visit in the department: 02/08/2024-annual Does the patient have a future office visit with this provider/department: pt needs to schedule yet Requested Prescriptions Pending Prescriptions Disp Refills docusate sodium (COLACE) 100 mg capsule 180 capsule 1 Sig: Take 1 capsule by mouth two times a day. pantoprazole DR (PROTONIX) 40 mg tablet 90 tablet 1 Sig: Take 1 tablet by mouth daily before breakfast. Take on empty stomach, 1/2 hr before meal. metoprolol tartrate 37.5 mg tab 180 tablet 1 Sig: Take 1 tablet by mouth every 12 hours. traZODone (DESYREL) 50 mg tablet 30 tablet 2 Sig: Take 1 tablet by mouth daily at bedtime. Pregabalin (LYRICA) 200 mg capsule 90 capsule 1 Sig: Take 1 capsule by mouth daily at bedtime for 180 days. pregabalin (LYRICA) 100 mg capsule 90 capsule 0 Sig: Take 1 capsule by mouth once daily for 90 days. Janki Vale RN documented in this encounter [facility] 03-28-2024 Telephone encounter Note The patient has been identified by name and date of : Yes Caregiver verified no other encounters exist for this prescription request: Yes Caregiver confirmed with patient/requestor that no other refills are due, in the near future, with this provider at this time: Yes The last office visit in the department: 02/08/2024-annual Does the patient have a future office visit with this provider/department: pt needs to schedule yet Requested Prescriptions Pending Prescriptions Disp Refills docusate sodium (COLACE) 100 mg capsule 180 capsule 1 Sig: Take 1 capsule by mouth two times a day. pantoprazole DR (PROTONIX) 40 mg tablet 90 tablet 1 Sig: Take 1 tablet by mouth daily before breakfast. Take on empty stomach, 1/2 hr before meal. metoprolol tartrate 37.5 mg tab 180 tablet 1 Sig: Take 1 tablet by mouth every 12 hours. traZODone (DESYREL) 50 mg tablet 30 tablet 2 Sig: Take 1 tablet by mouth daily at bedtime. Pregabalin (LYRICA) 200 mg capsule 90 capsule 1 Sig: Take 1 capsule by mouth daily at bedtime for 180 days. pregabalin (LYRICA) 100 mg capsule 90 capsule 0 Sig: Take 1 capsule by mouth once daily for 90 days. Janki Vale RN [facility] 03-04-2024 Telephone encounter Note Kiel is calling Alyson Arthur MD today with concern regarding Medication Request Calling in today states that he needs a new one of the following sent [facility] [place]. flash glucose scanning reader (FREESTYLE ANAHI 2 READER) Patient has been identified by name and birthdate. Duration of symptoms: N/A Person calling: spouse: Gissell Call patient at: at home and on cell [phone] (home) [phone] (cell) Was an appointment scheduled: No Closing statement: Results or non-symptom based questions: Thank you for calling [facility], your call will be returned within the next business day. Rae Granger [facility] 03-04-2024 Miscellaneous Notes Kiel is calling Alyson Arthur MD today with concern regarding Medication Request Calling in today states that he needs a new one of the following sent to [facility] in [place]. flash glucose scanning reader (FREESTYLE ANAHI 2 READER) Patient has been identified by name and birthdate. Duration of symptoms: N/A Person calling: spouse: Gissell Call patient at: at home and on cell [phone] (home) [phone] (cell) Was an appointment scheduled: No Closing statement: Results or non-symptom based questions: Thank you for calling [facility], your call will be returned within the next business day. Rae Granger documented in this encounter [facility] 03-04-2024 Note HNO ID: [id number] Author: ESTELLE URIARTE MA Service: ? Author Type: Ld Teacher Type: Progress Notes Filed: 03/04/2024 09:34 Note Text: POPULATION HEALTH NAVIGATION OUTREACH Action/I Care gaps due: AWV 6m fu July 2024 [place] (FOBT ordered) DIABETIC RETINAL EXAM Spoke to pt, declined scheduling as his isnt home, told him ill sned a mc message and to call back whenr ramon. Reason for Outreach Care Gap/HCC or Scheduling Wellness Visits Care Gaps due: Medicare Annual Wellness Visit Follow-up Appointment Colorectal Cancer Screening Diabetic Eye Exam Patient Contacted: Spoke to patient/parent/or legal guardian Patient identified by name and : Yes Care Gap/HCC/Scheduling Wellness actions taken: Patient declined: Patient requested call back from navigator/ will call navigator back HCC related Navigation Signature: Estelle Uriarte MA March 04, 2024 9:33 AM [facility] 03-04-2024 History of Presen t illness Narrative POPULATION HEALTH NAVIGATION OUTREACH Action/FYI Care gaps due: AWV 6m fu July 2024 [place] (FOBT ordered) DIABETIC RETINAL EXAM Spoke to pt, declined scheduling as his isnt home, told him ill sned a mc message and to call back whenr ramon. Reason for Outreach Care Gap/HCC or Scheduling Wellness Visits Care Gaps due: Medicare Annual Wellness Visit Follow-up Appointment Colorectal Cancer Screening Diabetic Eye Exam Patient Contacted: Spoke to patient/parent/or legal guardian Patient identified by name and : Yes Care Gap/HCC/Scheduling Wellness actions taken: Patient declined: Patient requested call back from navigator/ will call navigator back HCC related Navigation Signature: Estelle Uriarte MA March 04, 2024 9:33 AM documented in this encounter [facility] 03-04-2024 Note Patient Outreach (NE TNAV) KIEL CATHERINE ([id number]) 1960 M Date Time Provider Department 03/04/24 ESETLLE URIARTE During your visit today, we recorded the following information about you: Estelle Uriarte MA 03/04/2024 9:34 AM Signed POPULATION HEALTH NAVIGATION OUTREACH Action/FYI Care gaps due: AWV 6m fu July 2024 [place] (FOBT ordered) DIABETIC RETINAL EXAM Spoke to pt, declined scheduling as his isnt home, told him ill sned a mc message and to call back whenr ramon. Reason for Outreach Care Gap/HCC or Scheduling Wellness Visits Care Gaps due: Medicare Annual Wellness Visit Follow-up Appointment Colorectal Cancer Screening Diabetic Eye Exam Patient Contacted: Spoke to patient/parent/or legal guardian Patient identified by name and : Yes Care Gap/HCC/Scheduling Wellness actions taken: Patient declined: Patient requested call back from navigator/ will call navigator back HCC related Navigation Signature: Estelle UriarteLITTLE March 04, 2024 9:33 AM Allergies As of Date: 03/04/2024 Noted Allergy Reaction IODINATED CONTRAST MEDIA 03/16/2023 8 - GI Upset 14 - Other: See Comments Comments: Hypotension, temporary SOB LISINOPRIL 12/01/2017 14 - Other: See Comments Comments: Hyperkalemia PENICILLINS 10/29/2010 2 - Rash FLONASE (FLUTICASONE PROPIONATE) 10/18/2021 14 - Other: See Comments Comments: Nose bleeds Date Reviewed: 02/08/2024 Reviewed by: Margi Riddle APRN.GUEST HISTORY CLERK - Fully Assessed Reason for Visit: Population Health Navigation Outreach [3910] Cmt: Eladio nuñez Prescriptions as of 03/04/2024 - amLODIPine (NORVASC) 5 mg tablet Take 1 tablet by mouth once daily. - ammonium lactate (LAC-HYDRIN) 12 % cream Apply to affected area as needed for dry skin. - atorvastatin (LIPITOR) 10 mg tablet Take 1 tablet by mouth daily at bedtime. - budesonide-formoterol (SYMBICORT) 80-4.5 mcg/actuation inhaler Inhale 2 Puffs as instructed two times a day. - bumetanide (BUMEX) 1 mg tablet Take 2 tablets by mouth two times a day. - flash glucose sensor (FREESTYLE ANAHI 2 SENSOR) kit DMII, insulin requiring. Testing 3-5 times q day - insulin glargine (LANTUS SOLOSTAR U-100 INSULIN) 100 unit/mL (3 mL) Inject 20 Units subcutaneously daily at bedtime. - ipratropium-albuterol (DUONEB) 0.5 mg-3 mg(2.5 mg base)/3 mL nebu Inhale 3 mL as instructed four times daily. - pregabalin (LYRICA) 100 mg capsule Take 1 capsule by mouth once daily for 90 days. - traZODone (DESYREL) 50 mg tablet Take 1 tablet by mouth daily at bedtime. - insulin aspart U-100 (NOVOLOG FLEXPEN U-100 INSULIN) 100 unit/mL (3 mL) Use for sliding scale as directed with meals Blood sugar 0-150, no coverage; 151- 200, 2 units; 201- 250 4 units; 251- 300 6 units 301- 350 8 units, > 351 10 units - insulin needles, DISPOSABLE, (PEN NEEDLE) 31 gauge x 5/16 Use one needle per dose. 4per day. - Pregabalin (LYRICA) 200 mg capsule Take 1 capsule by mouth daily at bedtime for 180 days. - docusate sodium (COLACE) 100 mg capsule Take 1 capsule by mouth two times a day. - pantoprazole DR (PROTONIX) 40 mg tablet Take 1 tablet by mouth daily before breakfast. Take on empty stomach, 1/2 hr before meal. - metoprolol tartrate 37.5 mg tab Take 1 tablet by mouth every 12 hours. - predniSONE (DELTASONE) 50 mg take 1 tablet 13, 7 (SEVEN), and 1 hour prior DIRECTED - traMADol (ULTRAM) 50 mg tablet Take 1 tablet by mouth every 8 hours as needed for pain for up to 14 days. - ondansetron (ZOFRAN) 4 mg tablet Take 1 tablet by mouth every 8 hours as needed for nausea/vomiting. - apixaban (ELIQUIS) 5 mg tab(s) Take 1 tablet by mouth two times a day. - MULTIVITAMIN-FERROUS FUMARATE-FOLIC ACID 18 MG-400 MCG TABLET Take 1 tablet by mouth daily with breakfast. - polyethylene glycol 3350 17 gram packet Take 1 Packet by mouth once daily. Dissolve dose in 4 - 8 ounces of liquid and take as directed. - Melatonin 5 mg cap Take by mouth. - acetaminophen (TYLENOL) 650 mg/20.3 mL soln 20.3 mL by ORAL/FEEDING TUBE route every 4 hours as needed for pain. Do not exceed 5 doses in 24 hours. - aspirin 81 mg chewable tablet 1 tablet by CORPAK route once daily. - magnesium hydroxide (MOM) 400 mg/5 mL suspension 30 mL by CORPAK route every 6 hours as needed. - albuterol HFA (PROVENTIL HFA, VENTOLIN HFA) 90 mcg/actuation inhaler Inhale 2 Puffs as instructed every 4 hours as needed for wheezing/shortness of breath. Meds Comments as of 04/29/2014: 04/29/14 - Patient states he is on a 50 mg pain patch but does not know the name. Nitza Guthrie Little Problem List As Of Date 03/04/2024 Noted Resolved Restrictive lung disease [J98.4] 11/12/2010 MANISH on CPAP [G47.33] 11/09/2012 Bicuspid aortic valve [Q23.81] 11/09/2012 Controlled type 2 diabetes mellitus with diabet*11/09/2012 Hyperlipidemia (more content not included)... [facility] 02-16-2024 Telephone encounter Note Faxed as requested. [facility] 02-16-2024 Miscellaneous Notes Faxed as requested. [facility] sends fax requesting order for Quad cane. After printed fax face to face chart notes and order ATTN: Anastacio Shafer [phone]. documented in this encounter [facility] 02-15-2024 Telephone encounter Note Done [facility] 02-15-2024 Telephone encounter Note [facility] [place] sends fax requesting order for Quad cane. After printed fax face to face chart notes and order ATTN: Anastacio Shafer [phone]. [facility] 02-08-2024 Instructions Margi Riddle APRN.CNP - 02/08/2024 12:10 PM EST 1) covid vaccine 2) flu vaccine 3) labs today 4) Stop furosemide, continue bumetanide (Bumex) 5) Increase Lantus (glargine) to 20 units daily 6) Cipro 2 x day for 10 days 7) Stool card to check for blood 8) follow up in 6 months- may be virtual documented in this encounter [facility] 02-08-2024 Note HNO ID: [id number] Author: MARGI RIDDLE APRN.CNP Service: ? Author Type: Clinical Nurse Specialist Type: Progress Notes Filed: 02/08/2024 13:20 Note Text: Chief Reason For Appointment Patient presents with: Follow Up Kiel Catherine is a 63 year old male who presents for annual exam. Last office visit date: 07/05/2023 Accompanied By daughterAlicia Have you had any critical events, hospital stays, ER visits, surgeries or procedures since your last visit here in our office: Yes Specialists/Other Healthcare Providers Seen: Patient Care Team: Alyson Arthur MD as PCP - General (Family Medicine) Shlomo Alcocer MD as Surgeon (Cardiac Surg) Benjamin Pike MD as Referring (Cardiovascular Surgery) Kiel Barnes MD as Primary Staff Physician (Cardiology) Angela Schmid APRN.CNP as Calender Inspector (Family Medicine) Margi Riddle APRN.CNP as Calender Inspector (Family Medicine) Concerns today: Getting up frequently for urination, can't hold it HPI Had a bowel obstruction- did not require surgery Also, admitted for pneumonia Valve replacement Sees Dr. Atwood for pain in feet and back DM: Reports overall feeling well. Medication side effects: No. Home sugar checks: Yes. Twice a day- sometimes more (FBS- 200-230) Hypoglycemic spells: No. Watching diet: Yes. Unexpected weight loss: No. Gained weight Polyuria, polydipsia: Yes. Vision Changes: Yes. Needs eye exam Foot lesions or numbness or pain: Yes. Active Problems ACTIVE PROBLEM LIST Encounter for Support and Coordination of Transition of Care - 03/25/2023 (A priority) Comment: Indication for Surgery: Aorta Aneurysm and Aortic Valve Stenosis Admit 03/20/23 Preop LVEF: 55% RVF: Normal Cards: Kiel Barnes EKG: NSR Cath: Mild CAD Postop LVEF: Normal RVF: Normal PMH/PSH: BAV, , CAD, HTN, HPL, Moderate pulmonary HTN, T2DM, COPD, MANISH on CPAP, Morbid obesity, 1 PPD current smoker, Bipolar 1, chronic back pain/degenerative disc disease (sees pain management), s/p lumbar fusion Preoperative Hospital Course: 62 yo male with PMH significant for morbid obesity, DM type II, COPD, coronary artery disease, bipolar 1 disorder, HTN, HLD, MANISH on CPAP, and known bicuspid aortic stenosis. He had a recent TTE on 09/30/22, and though the images are poor due to body habitus he did have findings of severe aortic stenosis with peak gradient of 76, mean gradient 39 DI 0.23, and aortic valve area of 1.0. He was recently admitted to [facility] for a blister on the anterior right lower extremity over the tibia which had popped causing an open wound, and TTE done at the [facility] - 03/22/2023 (B priority) Comment: Mild Cad (C priority) Comment: 11/29/22 [facility]: The LMT is normal. The LAD has mild diffuse disease. The Circumflex has mild diffuse disease. The RCA has mild diffuse disease. Dilatation of Aorta (Hcc) (C priority) Comment: 03/16/23 TTE: The visualized aorta is dilated with a maximal dimension of 4.4 cm. Postoperative Pain (D priority) Comment: see coord note hx chronic back pain Hypernatremia - 03/25/2023 (F priority) Hypervolemia - 03/21/2023 (F priority) On Tube Feeding Diet - 04/06/2023 Slurred Speech - 04/05/2023 Right Hemiparesis (Hcc) - 04/05/2023 Cognitive Communication Deficit - 04/04/2023 Pressure Injury of Coccygeal Region, Unstageable (Hcc) - 04/03/2023 Comment: Primary Sleep Apnea of - 03/28/2023 Nicotine use disorder, F17.2 - 03/27/2023 Comment: Dysarthria - 03/27/2023 Comment: Impaired Gait and Mobility - 03/24/2023 Right Arm Weakness - 03/24/2023 Coordination Impairment - 03/24/2023 Comment: Alteration in Self-Care Ability - 03/24/2023 Comment: Insulin Dose Changed ([facility]) - 03/24/2023 Type 2 Diabetes Mellitus With Hyperglycemia, With Long-Term Current Use of Insulin ([facility]) - 03/24/2023 Comment: Hemoglobin A1C (%) Date Value 02/27/2023 6.5 06/24/2020 9.6 Dysphagia - 03/22/2023 Comment: MBS on 03/28/23 Followed by Speech therapy: see coord note Arterial Ischemic Stroke, Mca (Middle Cerebral Artery), Left, Acute ([facility]) - 03/22/2023 Comment: see coord note Open Wound of Left Great Toe - 03/22/2023 Comment: scab unknown etiology Alteration in Skin Integrity Due to Moisture - 03/22/2023 Comment: lower abdominal skin fold, right breast skin fold Skin Tear of Upper Extremity - 03/22/2023 Comment: left ear Pressure Injury of Sacral Region, Unstageable ([facility]) - 03/22/2023 Comment: coccyx Discharge Planning Issues - 03/16/2023 Comment: Patient is a 62 year old male from [place], [place]. PMANDR following for acute rehab needs Chronic Diastolic Heart Failure ([facility]) - 03/16/2023 Comment: Grade I DD on preop echo History of Disease - 02/21/2023 Class 3 Severe Obesity With Body Mass Index (Bmi) of 50.0 to 59.9 in Adult ([facility]) - 02/21/2023 Comment: Right Flank Pain - 02/21/2023 Peripheral Vascula (more content not included)... [facility] 02-08-2024 History of Presen t illness Narrative Chief Reason For Appointment Patient presents with: Follow Up Kiel Catherine is a 63 year old male who presents for annual exam. Last office visit date: 07/05/2023 Accompanied By daughter, Alicia Have you had any critical events, hospital stays, ER visits, surgeries or procedures since your last visit here in our office: Yes Specialists/Other Healthcare Providers Seen: Patient Care Team: Alyson Arthur MD as PCP - General (Family Medicine) Shlomo Alcocer MD as Surgeon (Cardiac Surg) Benjamin Pike MD as Referring (Cardiovascular Surgery) Kiel Barnes MD as Primary Staff Physician (Cardiology) Angela Schmid APRN.CNP as Calender Inspector (Family Medicine) Margi Riddle APRN.CNP as Calender Inspector (Family Medicine) Concerns today: Getting up frequently for urination, can't hold it HPI Had a bowel obstruction- did not require surgery Also, admitted for pneumonia Valve replacement Sees Dr. Atwood for pain in feet and back DM: Reports overall feeling well. Medication side effects: No. Home sugar checks: Yes. Twice a day- sometimes more (FBS- 200-230) Hypoglycemic spells: No. Watching diet: Yes. Unexpected weight loss: No. Gained weight Polyuria, polydipsia: Yes. Vision Changes: Yes. Needs eye exam Foot lesions or numbness or pain: Yes. Active Problems ACTIVE PROBLEM LIST Encounter for Support and Coordination of Transition of Care - 03/25/2023 (A priority) Comment: Indication for Surgery: Aorta Aneurysm and Aortic Valve Stenosis Admit 03/20/23 Preop LVEF: 55% RVF: Normal Cards: Kiel Barnes EKG: NSR Cath: Mild CAD Postop LVEF: Normal RVF: Normal PMH/PSH: BAV, , CAD, HTN, HPL, Moderate pulmonary HTN, T2DM, COPD, MANISH on CPAP, Morbid obesity, 1 PPD current smoker, Bipolar 1, chronic back pain/degenerative disc disease (sees pain management), s/p lumbar fusion Preoperative Hospital Course: 62 yo male with PMH significant for morbid obesity, DM type II, COPD, coronary artery disease, bipolar 1 disorder, HTN, HLD, MANISH on CPAP, and known bicuspid aortic stenosis. He had a recent TTE on 09/30/22, and though the images are poor due to body habitus he did have findings of severe aortic stenosis with peak gradient of 76, mean gradient 39 DI 0.23, and aortic valve area of 1.0. He was recently admitted to [facility] for a blister on the anterior right lower extremity over the tibia which had popped causing an open wound, and TTE done at the [facility] - 03/22/2023 (B priority) Comment: Mild Cad (C priority) Comment: 11/29/22 C: The LMT is normal. The LAD has mild diffuse disease. The Circumflex has mild diffuse disease. The RCA has mild diffuse disease. Dilatation of Aorta ([facility]) (C priority) Comment: 03/16/23 TTE: The visualized aorta is dilated with a maximal dimension of 4.4 cm. Postoperative Pain (D priority) Comment: see coord note hx chronic back pain Hypernatremia - 03/25/2023 (F priority) Hypervolemia - 03/21/2023 (F priority) On Tube Feeding Diet - 04/06/2023 Slurred Speech - 04/05/2023 Right Hemiparesis ([facility]) - 04/05/2023 Cognitive Communication Deficit - 04/04/2023 Pressure Injury of Coccygeal Region, Unstageable ([facility]) - 04/03/2023 Comment: Primary Sleep Apnea of Xenia - 03/28/2023 Nicotine use disorder, F17.2 - 03/27/2023 Comment: Dysarthria - 03/27/2023 Comment: Impaired Gait and Mobility - 03/24/2023 Right Arm Weakness - 03/24/2023 Coordination Impairment - 03/24/2023 Comment: Alteration in Self-Care Ability - 03/24/2023 Comment: Insulin Dose Changed ([facility]) - 03/24/2023 Type 2 Diabetes Mellitus With Hyperglycemia, With Long-Term Current Use of Insulin ([facility]) - 03/24/2023 Comment: Hemoglobin A1C (%) Date Value 02/27/2023 6.5 06/24/2020 9.6 Dysphagia - 03/22/2023 Comment: MBS on 03/28/23 Followed by Speech therapy: see coord note Arterial Ischemic Stroke, Mca (Middle Cerebral Artery), Left, Acute ([facility]) - 03/22/2023 Comment: see coord note Open Wound of Left Great Toe - 03/22/2023 Comment: scab unknown etiology Alteration in Skin Integrity Due to Moisture - 03/22/2023 Comment: lower abdominal skin fold, right breast skin fold Skin Tear of Upper Extremity - 03/22/2023 Comment: left ear Pressure Injury of Sacral Region, Unstageable ([facility]) - 03/22/2023 Comment: coccyx Discharge Planning Issues - 03/16/2023 Comment: Patient is a 62 year old male from [place], [place]. PM&R following for acute rehab needs Chronic Diastolic Heart Failure ([facility]) - 03/16/2023 Comment: Grade I DD on preop echo History of Disease - 02/21/2023 Class 3 Severe Obesity With Body Mass Index (Bmi) of 50.0 to 59.9 in Adult ([facility]) - 02/21/2023 Comment: Right Flank Pain - 02/21/2023 Peripheral Vascular Disease ([facility]) - 12/06/2022 Comment: 12/22/22 PVR: RIGHT SIDE Resting right ankle brachial index: 0.87 Right toe brachial index: 0.81 Abnormal ankle brachial index at rest diagnostic of peripheral artery disease. Normal toe brachial index at rest in the right leg. Possible partial calcified artery. Right ankle: Mild disease at rest. Right iliofemoral disease. LEFT SIDE Resting left ankle brachial index: 1.03 Left toe brachial index: 0.89 Normal ankle brachial index at rest in the left leg. Normal toe brachial index at rest in the left leg. Left ankle: Normal at rest. Chronic Obstructive Pulmonary Disease ([facility]) - 10/11/2022 Comment: 11-17-2022 PFTs IMPRESSION: Spirometry shows no obstruction. The TLC is reduced indicating restriction. The diffusing capacity is normal. PRE-BRONCH POST-BRONCH Pre LLN Pred ULN %Pred Post %Pred %Chg SPIROMETRY FVC (L) 2.56 2.28 3.04 3.81 84 FEV1 (L) 1.97 1.81 2.44 3.03 80 FEV1/FVC 0.77 0.67 0.80 0.90 96 Pneumonia - 10/11/2022 Chronic Back Pain - 09/28/2022 Comment: Nocturnal Oxygen Desaturation - 10/23/2021 Gerd Without Esophagitis - 10/23/2021 Severe Aortic Stenosis - 08/10/2018 Microalbuminuria - 08/03/2018 Comment: Had issues with estefani in the past. Will work on maintaing bp. Ulnar Neuropathy of Left Upper Extremity - 01/07/2013 Hypogonadism Male - 01/04/2013 Chronic Bronchitis, Simple ([facility]) - 12/07/2012 Lvh (Left Ventricular Hypertrophy) Comment: See Aortic valve stenosis Manish On Cpap - 11/09/2012 Comment: see coord note Bicuspid Aortic Valve - 11/09/2012 Comment: 03/16/23 TTE: There is paradoxical low flow, low gradient, severe aortic valve stenosis caused by calcified valve and restricted opening. AV area is 0.72 cm (0.30 cm /m ) by continuity, VTI. The peak gradient is 58 mmHg, the mean gradient is 32 mmHg and the dimensionless valve index is 0.17. Prior AV peak/mean gradients were 76/39 mmHg. Controlled Type 2 Diabetes Mellitus With Diabetic Neuropathy, With Long-Term Current Use of Insulin ([facility]) - 11/09/2012 Comment: Hyperlipidemia - 11/09/2012 Comment: Cholesterol, Total Date Value Ref Range Status 03/23/2023 125 <200 mg/dL Final Comment: <200 mg/dL, Desirable 200-239 mg/dL, Borderline high >239 mg/dL, High HDL Cholesterol Date Value Ref Range Status 03/23/2023 36 (L) >39 mg/dL Final Comment: 40-59 mg/dL, Acceptable >59 mg/dL, High: Negative risk factor for coronary heart disease <40 mg/dL, Low: Positive risk factor for coronary heart disease LDL Cholesterol Date Value Ref Range Status 03/23/2023 61 <100 mg/dL Final Comment: <100 mg/dL, Optimal 100-129 mg/dL, Near optimal/above optimal 130-159 mg/dL, Borderline high 160-189 mg/dL, High >189 mg/dL, Very high Secondary prevention optimal LDL Cholesterol levels are recommended to be < 70 mg/dL Triglyceride Date Value Ref Range Status 03/23/2023 142 <150 mg/dL Final Comment: <150 mg/dL, Normal 150-199 mg/dL, Borderline high 200-499 mg/dL, High >499 mg/dL, Very high Hypertension - 11/09/2012 Comment: Ddd (Degenerative Disc Disease), Lumbar - 11/09/2012 Bipolar 1 Disorder ([facility]) - 11/09/2012 Comment: No home medications Morbid Obesity With Bmi of 50.0-59.9, Adult ([facility]) - 11/09/2012 Comment: History: Postop Assessment: Body mass index is 51.44 kg/m . Plan: Encourage and educate on lifestyle changes for Wt Loss during hospital stay. F/u with PCP. Restrictive Lung Disease - 11/12/2010 ROS: REVIEW OF SYSTEMS GENERAL: No weight loss- + gain, + malaise, no fevers/chills HEENT: Negative for frequent or significant headaches, No changes in hearing, + vision changes. NECK: Negative for lumps, goiter, pain and significant neck swelling RESPIRATORY: + productive cough, no hemoptysis, + wheezing, no dyspnea or shortness of breath, Smokes 1 ppd for 48 years CARDIOVASCULAR: Negative for chest pain, some leg swelling, no orthopnea, no palpitations GI: No nausea, no vomiting, + diarrhea/ no constipation. No hematochezia/melena. Treated for heartburn or reflux symptoms. : No history of dysuria, + frequency and incontinence MUSCULOSKELETAL: Back & feet joint pain or swelling. SKIN: Negative for lesions, rash, and itching ENDOCRINE: Negative for cold or heat intolerance, + polyuria, + polydipsia and goiter NEURO: No history of headaches, syncope, paralysis, seizures or tremors MOOD: Negative for depression, anxiety, or suicidal ideation. PAST MEDICAL HISTORY Diagnosis Date Acute ischemic left MCA stroke ([facility]) 03/22/2023 Anxiety Aortic valve stenosis, nonrheumatic Atrial septal defect and mitral stenosis Bicuspid aortic valve Bipolar 1 disorder ([facility]) Chronic obstructive pulmonary disease (COPD) ([facility]) Coronary artery disease Degenerative disc disease sees Dr. Sellers Diabetic neuropathy ([facility]) DM (diabetes mellitus) ([facility]) HTN (hypertension) Hyperkalemia Hyperlipidemia Hypogonadism male LVH (left ventricular hypertrophy) Morbid obesity ([facility]) MANISH on CPAP Pain management Dr. Sellers PAST SURGICAL HISTORY Procedure Laterality Date BACK SURGERY HX fusion- lumbar CARPAL TUNNEL both HEART SURGERY HX 03/20/2023 S/p 03/20/2023 AVR (27 Epic plus) and Ascending repair (28 hemishield) PAST SURGICAL HISTORY OF left shouder surgery PAST SURGICAL HISTORY OF nasal passages clearing for sleep apnea PAST SURGICAL HISTORY OF 02/13/1981 ORIF right ankle PAST SURGICAL HISTORY OF 04/03/2013 left ulnar nerve decompression Medication List Current Outpatient Medications Medication Sig Dispense Refill pregabalin (LYRICA) 100 mg capsule Take 1 capsule by mouth once daily for 90 days. 90 capsule 0 traZODone (DESYREL) 50 mg tablet Take 1 tablet by mouth daily at bedtime. 30 tablet 2 amLODIPine (NORVASC) 5 mg tablet Take 1 tablet by mouth once daily. 90 tablet 1 atorvastatin (LIPITOR) 10 mg tablet Take 1 tablet by mouth daily at bedtime. 90 tablet 1 Pregabalin (LYRICA) 200 mg capsule Take 1 capsule by mouth daily at bedtime for 180 days. 90 capsule 1 docusate sodium (COLACE) 100 mg capsule Take 1 capsule by mouth two times a day. [address] (PROTONIX) 40 mg tablet Take 1 tablet by mouth daily before breakfast. Take on empty stomach, 1/2 hr before meal. 90 tablet 1 metoprolol tartrate 37.5 mg tab Take 1 tablet by mouth every 12 hours. 180 tablet 1 bumetanide (BUMEX) 1 mg tablet Take 2 tablets by mouth two times a day. 360 tablet 1 furosemide (LASIX) 40 mg tablet Take by mouth. traMADol (ULTRAM) 50 mg tablet Take 1 tablet by mouth every 8 hours as needed for pain for up to 14 days. 42 tablet 0 ondansetron (ZOFRAN) 4 mg tablet Take 1 tablet by mouth every 8 hours as needed for nausea/vomiting. 20 tablet 0 apixaban (ELIQUIS) 5 mg tab(s) Take 1 tablet by mouth two times a day. 60 tablet 11 MULTIVITAMIN-FERROUS FUMARATE-FOLIC ACID 18 MG-400 MCG TABLET Take 1 tablet by mouth daily with breakfast. 30 tablet 11 polyethylene glycol 3350 17 gram packet Take 1 Packet by mouth once daily. Dissolve dose in 4 - 8 ounces of liquid and take as directed. 30 Packet 11 Melatonin 5 mg cap Take by mouth. acetaminophen (TYLENOL) 650 mg/20.3 mL soln 20.3 mL by ORAL/FEEDING TUBE route every 4 hours as needed for pain. Do not exceed 5 doses in 24 hours. aspirin 81 mg chewable tablet 1 tablet by CORPAK route once daily. ipratropium-albuterol (DUONEB) 0.5 mg-3 mg(2.5 mg base)/3 mL nebu Inhale 3 mL as instructed four times daily. magnesium hydroxide (MOM) 400 mg/5 mL suspension 30 mL by CORPAK route every 6 hours as needed. budesonide-formoterol (SYMBICORT) 80-4.5 mcg/actuation inhaler Inhale 2 Puffs as instructed two times a day. 1 Each 3 albuterol HFA (PROVENTIL HFA, VENTOLIN HFA) 90 mcg/actuation inhaler Inhale 2 Puffs as instructed every 4 hours as needed for wheezing/shortness of breath. 1 Each 0 insulin aspart U-100 (NOVOLOG FLEXPEN U-100 INSULIN) 100 unit/mL (3 mL) Use for sliding scale as directed with meals Blood sugar 0-150, no coverage; 151- 200, 2 units; 201- 250 4 units; 251- 300 6 units 301- 350 8 units, > 351 10 units 5 Each 11 insulin glargine (LANTUS SOLOSTAR U-100 INSULIN) 100 unit/mL (3 mL) Inject 12 Units subcutaneously daily at bedtime. 5 Each 3 insulin needles, DISPOSABLE, (PEN NEEDLE) 31 gauge x 5/16 Use one needle per dose. 4per day. 400 Each 3 ammonium lactate (LAC-HYDRIN) 12 % cream Apply to affected area as needed for dry skin. 385 g 3 flash glucose sensor (FREESTYLE ANAHI 2 SENSOR) kit DMII, insulin requiring. Testing 3-5 times q day 2 Each 11 predniSONE (DELTASONE) 50 mg take 1 tablet 13, 7 (SEVEN), and 1 hour prior DIRECTED No current facility-administered medications for this visit. Weight Summary: Weight Change: Body mass index is 44.11 kg/m . Last Wt 02/08/24 : 116.6 kg (257 lb) 07/05/23 : 104.3 kg (230 lb) 07/03/23 : 104.6 kg (230 lb 9.6 oz) 06/06/23 : 111.1 kg (245 lb) 04/05/23 : 124.3 kg (274 lb 0.5 oz) Physical Exam: General Appearance: well appearing, alert and oriented. 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 Eyes: Anicteric sclera. Ears: external ears normal, canals clear. Hearing to conversational voice intact. Nose/Sinuses: PND with dark mucus Oropharynx: lips, mucosa, and tongue normal, oropharynx normal. Neck: trachea midline, thyroid without mass or nodularity, thyroid moves normally with swallow, no regional lymphadenopathy. Carotids normal upstroke, no bruit or thrill. Full aguero Back:scoliosis and chronic back pain Lungs: Chest rise & fall symmetrical, Lungs clear to auscultation. No wheezing or rhonchi. No rales. Abdomen: normal bowel sounds, no mass, non-tender Heart: S1S2, no gallop, no rub, no murmur Lymph Nodes: no lymphadenopathy. Ext: no clubbing, cyanosis or edema. Mood: bright affect, speech clear, answers questions appropriately SCREENINGS Health Maintenance Listing Spirometry Depression Screening Anxiety Screening HIV Screening DTaP,Tdap,Td Vaccine(1 - Tdap) Alpha-1 Antitrypsin Deficiency Screening Shingrix Vaccine(1 of 2) Colorectal Cancer Screening RSV Vaccine(1 - Risk 60-74 years 1-dose series) Urine Albumin:Creatinine Ratio Dilated Retinal Exam Lung Cancer Screening Influenza Vaccine(1) Covid-19 Vaccine(2023- season) HbA1C Diabetic Foot Exam TEST RESULTS: Lab Studies: Date of lab studies: check labs - glucose - potassium - Creatinine, gfr - LFTs Lipid: WBC, H&H, Platelets: A1C: Vitamin D: Other: A/P: ASSESSMENT/PLAN: 1. Urine frequency - ICD9: 788.41, ICD10: R35.0 (primary diagnosis) acute - Send urine for culture - Patient education for prevention given - diabetes may be a factor - URINALYSIS WITH MICROSCOPIC, REFLEX CULTURE - On two water pills 2. Encounter for immunization - ICD9: V03.89, ICD10: Z23 - INFLUENZA VACCINE, AGE 6MO-64YR, TRIVALENT (AFLURIA, FLULAVAL, FLUVIRIN, FLUZONE) - INFLUENZA VACCINE, AGE 6MO-64YR, TRIVALENT (AFLURIA, FLULAVAL, FLUVIRIN, FLUZONE) - [employer]-U4EA COVID-19 VACCINE AGE 12+ YR ([facility]) 3. Screening for depression - ICD9: V79.0, ICD10: Z13.31 Stable - DEPRESSION SCREENING 4. Encounter for screening examination for other mental health and behavioral disorders - ICD9: V79.8, ICD10: Z13.39 Stable - ANXIETY SCREENING 5. Chronic obstructive pulmonary disease, unspecified COPD type (HCC) - ICD9: 496, ICD10: J44.9 Stable - [id number] - COMPLETE BLOOD COUNT AND DIFFERENTIAL - VITAMIN B12 - BUDESONIDE-FORMOTEROL HFA 80 MCG-4.5 MCG/ACTUATION AEROSOL INHALER 6. Screening for colon cancer - ICD9: V76.51, ICD10: Z12.11 Check fit card - IMMUNOCHEMICAL FECAL OCCULT BLOOD TEST - COMPLETE BLOOD COUNT AND DIFFERENTIAL 7. Type 2 diabetes mellitus with hyperglycemia, with long-term current use of insulin (HCC) - ICD9: 250.00, 790.29, V58.67, ICD10: E11.65, Z79.4 - Uncontrolled - Continue current medications - Increase Lantus to 20 units daily - ALBUMIN/CREATININE RATIO, URINE - COMPLETE BLOOD COUNT AND DIFFERENTIAL - COMPREHENSIVE METABOLIC PANEL - HEMOGLOBIN A1C - THYROID STIMULATING HORMONE - MAGNESIUM - ATORVASTATIN 10 MG TABLET 8. Encounter for screening for lung cancer - ICD9: V76.0, ICD10: Z12.2 Had one last year - CONSULT LUNG CANCER SCREENING [facility] 9. Screening for lipid disorders - ICD9: V77.91, ICD10: Z13.220 Check labs - LIPID PANEL, NONFASTING 10. Primary hypertension - ICD9: 401.9, ICD10: I10 - Controlled - Recommend home blood pressure monitoring, to bring results to next visit - Encouraged sodium restriction, DASH or Mediterranean diet - Recommend regular aerobic exercise - AMLODIPINE 5 MG TABLET - BUMETANIDE 1 MG TABLET 11. Controlled type 2 diabetes mellitus with diabetic neuropathy, with long-term current use of insulin (HCC) - ICD9: 250.60, 357.2, V58.67, ICD10: E11.40, Z79.4 - Uncontrolled - Increase Lantus to 20 units - AMMONIUM LACTATE 12 % TOPICAL CREAM - FREESTYLE ANAHI 2 SENSOR KIT 12. Arterial ischemic stroke, MCA (middle cerebral artery), left, acute (HCC) - ICD9: 434.91, ICD10: I63.512 Check labs - ATORVASTATIN 10 MG TABLET 13. Dilatation of aorta (HCC) - ICD9: 447.70, ICD10: I77.819 CT ordered - ATORVASTATIN 10 MG TABLET 14. Dyspnea, unspecified type - ICD9: 786.09, ICD10: R06.00 Check labs - BUDESONIDE-FORMOTEROL HFA 80 MCG-4.5 MCG/ACTUATION AEROSOL INHALER 15. Type 2 diabetes mellitus without complication, without long-term current use of insulin (HCC) - ICD9: 250.00, ICD10: E11.9 - Uncontrolled - As aboveStable - LANTUS SOLOSTAR U-100 INSULIN 100 UNIT/ML (3 ML) SUBCUTANEOUS PEN 16. Cerebrovascular accident (CVA) due to nonpyogenic cerebral venous thrombosis (HCC) - ICD9: 434.91, ICD10: I63.6 Stable - DME SUPPLY OR ACCESSORY, NOS 17. Acute maxillary sinusitis, recurrence not specified - ICD9: 461.0, ICD10: J01.00 - Will begin treatment with Cipro 2 x day for 10 daysMargi Riddle APRN.CNP Discussed treatment plan and patient voices understanding. Patient's questions answered appropriately. Medications and potential side effects were discussed and patient voices understanding. Return to the office as scheduled or as needed for worsening/no improvement. Follow Up Plans: 6 months documented in this encounter [facility] 01-29-2024 Telephone encounter Note Called and spoke with both pt and his Roberta. Rock states they need to reschedule both of their appts. Edwar from tomorrow to 02/07. [facility] 01-29-2024 Miscellaneous Notes Called and spoke with both pt and his Roberta. Rock states they need to reschedule both of their appts. Edwar from tomorrow to 02/07. No. They need to F2F, both need labs done.? Patient Shweta calling her and herself both have appts tomorrow with Daniella Riddle. Neither one of them can get out of the house they live in. There are large steps that they can not get down them. With all the rain their daughter can not drive the car closer to the house to get them in, she will be stuck. Asking if both of their appts could be changed to my chart virtual appts? They are scheduled back to back hers at 940 am and his at 1020 am. She was saying an apartment is being built in the basement so they could come out easier to the garage but not sure when that is going to be completed. Please advise documented in this encounter [facility] 01-29-2024 Telephone encounter Note No. They need to F2F, both need labs done.? [facility] 01-29-2024 Telephone encounter Note Patient Shweta calling her and herself both have appts tomorrow with Daniella Riddle. Neither one of them can get out of the house they live in. There are large steps that they can not get down them. With all the rain their daughter can not drive the car closer to the house to get them in, she will be stuck. Asking if both of their appts could be changed to my chart virtual appts? They are scheduled back to back hers at 940 am and his at 1020 am. She was saying an apartment is being built in the basement so they could come out easier to the garage but not sure when that is going to be completed. Please advise [facility] 01-09-2024 Telephone encounter Note Kenzie with [facility] calls to request rx for pt. Kenzie requested a refill for losartan 50 mg . Do not see a current rx for this medication. Last rx shown for this med is dated 01/09/23 with an end date of 04/07/23 (pt was in the hospital 04/07/23). Called [facility] back and spoke to July who reports they have been filling it off of the 01/09/23 rx. Is pt supposed to be taking this med? Please review and advise. Also requesting refills for trazodone 50 mg and Lyrica 100 mg which are on current med list. Yoly Murray LPN [facility] 01-09-2024 Miscellaneous Notes Kenzie with [facility] calls to request rx for pt. Kenzie requested a refill for losartan 50 mg . Do not see a current rx for this medication. Last rx shown for this med is dated 01/09/23 with an end date of 04/07/23 (pt was in the hospital 04/07/23). Called [facility] back and spoke to July who reports they have been filling it off of the 01/09/23 rx. Is pt supposed to be taking this med? Please review and advise. Also requesting refills for trazodone 50 mg and Lyrica 100 mg which are on current med list. Yoly Murray LPN documented in this encounter [facility] 01-01-2024 Telephone encounter Note Completed form faxed [facility] 01-01-2024 Miscellaneous Notes Completed form faxed Yes form is in office. [facility] calling to let provider know they faxed CMN for incontinence supplies. Asking if form received? Tia Arenas, RN documented in this encounter [facility] 12-28-2023 Telephone encounter Note An order is requested for a hospital bed from [facility]. Patient would need to schedule and keep an appointment to discuss in order to have the correct documentation. [facility] 12-28-2023 Miscellaneous Notes An order is requested for a hospital bed from [facility]. Patient would need to schedule and keep an appointment to discuss in order to have the correct documentation. documented in this encounter [facility] 12-28-2023 Telephone encounter Note Yes form is in office. [facility] 12-28-2023 Telephone encounter Note [facility] calling to let provider know they faxed CMN for incontinence supplies. Asking if form received? Tia Arenas RN [facility] 12-22-2023 Telephone encounter Note Sending RX for the 5 th time. Even printed and faxed. ??? [facility] 12-22-2023 Miscellaneous Notes Sending RX for the 5 th time. Even printed and faxed. ??? Patient's calls and states that pharmacy has not received prescription yet. Looks like it was printed previously. Can we resend prescription to pharmacy? Please review and advise, Apple Allen RN sliding scale as directed with meals Blood sugar 0-150, no coverage; 151- 200, 2 units; 201- 250 4 units; 251- 300 6 units 301- 350 8 units, > 351 10 units Can you rewrite this, it never printed Order re-written. [facility] calling asking to have Novalog rx more clarification. Asking if the patient is only using the 4 units three times daily or in addition to sliding scale amount. Or just 4 units three times daily. Needing maximum amount of Novalog patient can use in a day on the rx. Please advise Done and resent Aria with [facility] called and they received the prescription for Novolog flexpen. Aria reports they need more information. Need to have a per day and max amount so they can fill and bill. July Perez LPN documented in this encounter [facility] 12-22-2023 Telephone encounter Note Patient's calls and states that pharmacy has not received prescription yet. Looks like it was printed previously. Can we resend prescription to pharmacy? Please review and advise, Apple Allen RN [facility] 12-21-2023 Telephone encounter Note sliding scale as directed with meals Blood sugar 0-150, no coverage; 151- 200, 2 units; 201- 250 4 units; 251- 300 6 units 301- 350 8 units, > 351 10 units [facility] 12-21-2023 Telephone encounter Note Can you rewrite this, it never printed [facility] 12-19-2023 Telephone encounter Note Order re-written. [facility] 12-19-2023 Telephone encounter Note [facility] calling asking to have Novalog rx more clarification. Asking if the patient is only using the 4 units three times daily or in addition to sliding scale amount. Or just 4 units three times daily. Needing maximum amount of Novalog patient can use in a day on the rx. Please advise [facility] 12-19-2023 Telephone encounter Note Done and resent [facility] 12-19-2023 Telephone encounter Note Aria with [facility] called and they received the prescription for Novolog flexpen. [facility] reports they need more information. Need to have a per day and max amount so they can fill and bill. July Perez LPN [facility] 12-18-2023 Telephone encounter Note Patient's made aware of new prescriptions sent to pharmacy [facility] 12-18-2023 Miscellaneous Notes Patient's made aware of new prescriptions sent to pharmacy Please let pt. Know that I ordered Lantus pens and novolog pens for his sliding scale. Note that insurance may not cover Lantus pens because it is once a day and that pens are for convenience with being out and about. Lorie from [facility] returned call. States she only sees patient on monthly basis and last visit was 11/15. She states whatever her med list for patient is isn't necessarily what he's currently taking as it could have changed. Med list from Lorie: Lantus 12 units qhs Novolog flex pens sliding scale TID (50 units for q 50/200) Allison Omalley MA Called [facility] to see if they have a better answer as what he is taking. Lorie will call back. Elma Guthrie MA December 18, 2023 10:03 AM This makes no sense, Pt. Told us he hasn't used sliding scale. Quit lispro and that was the last sliding scale we had. He was prescribed insulin syringes for his Lantus. The order is still good and in chart. I need clarification of insulin doses and can he use up the vials of Lantus? He has been using them since May? Patient shweta returned call and said had gotten Novolog insulin in Vials. He does not have syringes, he uses pens. Right now he does not have any more Novolog pens for sliding scale. He has Lantus pens which he uses 18 units in the morning. Would need to call the [phone] phone her phone is . He uses [facility] for his pharmacy. Aware PCP is out of office. If no response from patient today, recheck with them what insulins he is actually using. Noted. Will keep open. Reviewing notes Novolog was discontinued on 04/07/23 by hospital provider and advised not to restart. Since than we have never refilled rx for Novolog and looks like all humalog rx were just med updates in system never filled. Called [facility] and they have not dispensed Novolog since 2021. Advised received rx for humalog with sliding scale QID on 12/06/23 and gave to patient. They have never given Humalog prior. Verified that last LANTUS was fill May 2023 for 90 days and would only last till August. [facility] is not sure if rx are being filled at another pharmacy? I advised we have been sending to [facility] but family could transfer out. Spoke to and she advised spouse insulin comes from [facility] and hers from [facility]. said that she takes Novolog and thought he was taking it as well. will have daughter call in with what all insulin is in fridge but I assume must me spouse rx. Daughter will call in to verify what sliding scale that patient has been doing. Laurel Adan MA Can we clarify with pharmacy what he has been receiving. The last novolog pen script we had filled was written in 2021 and discontinued in our chart in 04/08. I am confused See scanned POC reports. Pt has Novolog Flexpen listed on current med list. Bebeto Haro LPN Pt calls office questioning insulin received from pharmacy. states pt had been getting Novolg pens from pharmacy, but this time he received vial of Humalog. Pt asking if pt is supposed to be switching insulins? states she doesn't have (never had) syringes or needles to draw insulin from a vial. I looked back through med history and pt had been receiving Novolog Flexpens. Looking back through the last few phone notes sliding scale humalog was mentioned instead of Novolog. Please advise if pt should be using Novolog vs Humalog. If so, please send rx for Novolog Flexpens to [facility]. Bebeto Haro LPN documented in this encounter [facility] 12-18-2023 Telephone encounter Note Please let pt. Know that I ordered Lantus pens and novolog pens for his sliding scale. Note that insurance may not cover Lantus pens because it is once a day and that pens are for convenience with being out and about. [facility] Work Phone: 12-18-2023 Telephone encounter Note Lorie from [facility] returned call. States she only sees patient on monthly basis and last visit was 11/15. She states whatever her med list for patient is isn't necessarily what he's currently taking as it could have changed. Med list from [facility]: Lantus 12 units qhs Novolog flex pens sliding scale TID (50 units for q 50/200) Allison Omalley MA [facility] 12-15-2023 Telephone encounter Note Called [facility] to see if they have a better answer as what he is taking. Lorie will call back. Elma Guthrie MA December 18, 2023 10:03 AM [facility] 12-15-2023 Telephone encounter Note This makes no sense, Pt. Told us he hasn't used sliding scale. Quit lispro and that was the last sliding scale we had. He was prescribed insulin syringes for his Lantus. The order is still good and in chart. I need clarification of insulin doses and can he use up the vials of Lantus? He has been using them since May? [facility] 12-15[facility]23 Telephone encounter Note Patient shweta returned call and said had gotten Novolog insulin in Vials. He does not have syringes, he uses pens. Right now he does not have any more Novolog pens for sliding scale. He has Lantus pens which he uses 18 units in the morning. Would need to call the [phone] phone her phone is . He uses [facility] for his pharmacy. Aware PCP is out of office. [facility] 12-13-2023 Telephone encounter Note If no response from patient today, recheck with them what insulins he is actually using. [facility] 12-12-2023 Telephone encounter Note Noted. Will keep open. [facility] 12-12-2023 Telephone encounter Note Reviewing notes Novolog was discontinued on 04/07/23 by hospital provider and advised not to restart. Since than we have never refilled rx for Novolog and looks like all humalog rx were just med updates in system never filled. Called [facility] and they have not dispensed Novolog since 2021. Advised received rx for humalog with sliding scale QID on 12/06/23 and gave to patient. They have never given Humalog prior. Verified that last LANTUS was fill May 2023 for 90 days and would only last till August. [facility] is not sure if rx are being filled at another pharmacy? I advised we have been sending to [facility] but family could transfer out. Spoke to and she advised spouse insulin comes from [facility] and hers from [facility]. said that she takes Novolog and thought he was taking it as well. will have daughter call in with what all insulin is in fridge but I assume must me spouse rx. Daughter will call in to verify what sliding scale that patient has been doing. Laurel Adan MA [facility] 12-12-2023 Telephone encounter Note Can we clarify with pharmacy what he has been receiving. The last novolog pen script we had filled was written in 2021 and discontinued in our chart in 04/08. I am confused [facility] 12-12-2023 Telephone encounter Note See scanned POC reports. Pt has Novolog Flexpen listed on current med list. Bebeto Haro LPN [facility] 12-12-2023 Telephone encounter Note Pt calls office questioning insulin received from pharmacy. states pt had been getting Novolg pens from pharmacy, but this time he received vial of Humalog. Pt asking if pt is supposed to be switching insulins? states she doesn't have (never had) syringes or needles to draw insulin from a vial. I looked back through med history and pt had been receiving Novolog Flexpens. Looking back through the last few phone notes sliding scale humalog was mentioned instead of Novolog. Please advise if pt should be using Novolog vs Humalog. If so, please send rx for Novolog Flexpens to [facility]. Bebeto Haro LPN [facility] 12-07-2023 Telephone encounter Note [facility] asking pcp to send new Rx's for the insulin glargine and lispro. They cannot dispense 10.8 ml on the glargine- they have to dispense 15 ml. They cannot dispense 5 ml on the lispro- the least amount they can dispense is 10 ml. Changed Rx's to reflect this. Please send new Rx's to [facility]. [facility] 12-07-2023 Miscellaneous Notes [facility] asking pcp to send new Rx's for the insulin glargine and lispro. They cannot dispense 10.8 ml on the glargine- they have to dispense 15 ml. They cannot dispense 5 ml on the lispro- the least amount they can dispense is 10 ml. Changed Rx's to reflect this. Please send new Rx's to [facility]. documented in this encounter [facility] 12-06-2023 Telephone encounter Note Talked to and daughter (Alicia) they report highest they can remember from recent weeks of 14 units. Past couple of days has been better and hasn't used much at all. 6 units today with a reading of 301. Advised that his readings are really all over the place and hard to give me a number. Advised them that they really need to have a log put together and he needs to come in for an appt. Shweta reports waiting for daughter to come home to schedule. [facility] 12-06-2023 Miscellaneous Notes Talked to and daughter (Alicia) they report highest they can remember from recent weeks of 14 units. Past couple of days has been better and hasn't used much at all. 6 units today with a reading of 301. Advised that his readings are really all over the place and hard to give me a number. Advised them that they really need to have a log put together and he needs to come in for an appt. Shweta reports waiting for daughter to come home to schedule. Verify max of his sliding scale insulin he uses in a day for rx Pharmacy calling for refill request of pt's insulin medications.Per latest phone notes, patient taking Humalog per sliding scale QID and Insulin Glargine 18 units once daily. Patient's was instructed on 11/07/23 and 11/21/23 that patient needed to make an OV appt and get labs completed, which has not been completed. This nurse called patient to offer appt, pt stated he needed to call back to schedule due to his daughter provides transportation. Patient asking if PCP agreeable to place any lab orders that pt is due for. Call patient with update. Thank you. documented in this encounter [facility] 12-06-2023 Telephone encounter Note Verify max of his sliding scale insulin he uses in a day for rx [facility] 12-06-2023 Telephone encounter Note Pharmacy calling for refill request of pt's insulin medications.Per latest phone notes, patient taking Humalog per sliding scale QID and Insulin Glargine 18 units once daily. Patient's was instructed on 11/07/23 and 11/21/23 that patient needed to make an OV appt and get labs completed, which has not been completed. This nurse called patient to offer appt, pt stated he needed to call back to schedule due to his daughter provides transportation. Patient asking if PCP agreeable to place any lab orders that pt is due for. Call patient with update. Thank you. [facility] 11-21-2023 Telephone encounter Note returned call and given provider's message below with verbalized understanding. agreeable and states she will call back to schedule appt. [facility] 11-21-2023 Miscellaneous Notes returned call and given provider's message below with verbalized understanding. agreeable and states she will call back to schedule appt. Called and left a voicemail for the Patient to call back and ask for a nurse to receive the providers message. Tony Palma, THOMAS Increase glargine to 18 units. Needs appt and labs. Pts called in with fasting BS log. Date Fasting BS 11/07 298 11/08 289 11/09 287 11/10 315 11/11 342 9/30 n/a 11/13 328 10/2 n/a 10/3 n/a 11/16 349 10/5 n/a / 317 11/19 311 She said on the days she didn't have it marked she may have forgotten to write it down, or he may have eaten before it was checked. documented in this encounter [facility] 11-21-2023 Telephone encounter Note Called and left a voicemail for the Patient to call back and ask for a nurse to receive the providers message. Tony Palma RN [facility] 11-21-2023 Telephone encounter Note Increase glargine to 18 units. Needs appt and labs. [facility] Work Phone: 11-20-2023 Telephone encounter Note Pts called in with fasting BS log. Date Fasting BS 11/07 298 11/08 289 11/09 287 11/10 315 11/11 342 /30 n/a 11/13 328 10/2 n/a 10/3 n/a 11/16 349 10/5 n/a 11/18 317 11/19 311 She said on the days she didn't have it marked she may have forgotten to write it down, or he may have eaten before it was checked. [facility] 11-10-2023 Telephone encounter Note The patient has been identified by name and date of : Yes Caregiver verified no other encounters exist for this prescription request: Yes Caregiver confirmed with patient/requestor that no other refills are due, in the near future, with this provider at this time: Yes The last office visit in the department: 07/05/2023 Does the patient have a future office visit with this provider/department: Not scheduled yet Requested Prescriptions Pending Prescriptions Disp Refills amLODIPine (NORVASC) 5 mg tablet 90 tablet 1 Sig: Take 1 tablet by mouth once daily. atorvastatin (LIPITOR) 10 mg tablet 90 tablet 1 Sig: Take 1 tablet by mouth daily at bedtime. Joan Gallardo RN November 10, 2023 3:31 PM [facility] 11-10-2023 Miscellaneous Notes The patient has been identified by name and date of : Yes Caregiver verified no other encounters exist for this prescription request: Yes Caregiver confirmed with patient/requestor that no other refills are due, in the near future, with this provider at this time: Yes The last office visit in the department: 07/05/2023 Does the patient have a future office visit with this provider/department: Not scheduled yet Requested Prescriptions Pending Prescriptions Disp Refills amLODIPine (NORVASC) 5 mg tablet 90 tablet 1 Sig: Take 1 tablet by mouth once daily. atorvastatin (LIPITOR) 10 mg tablet 90 tablet 1 Sig: Take 1 tablet by mouth daily at bedtime. Joan Gallardo RN November 10, 2023 3:31 PM documented in this encounter [facility] 11-07-2023 Telephone encounter Note Phoned and spoke to shweta and went over notes from Dr Arthur with understanding. Shweta said she would need to call back to schedule appt when here daughter that is their transportation is there with her. Advised he was to have had appt a while ago, needs done soon. [facility] 11-07-2023 Miscellaneous Notes Phoned and spoke to shweta and went over notes from Dr Arthur with understanding. Shweta said she would need to call back to schedule appt when here daughter that is their transportation is there with her. Advised he was to have had appt a while ago, needs done soon. Increase glargine insulin to 18 units insulin and call sugars in one week. See last note, was supposed to make appt to be seen Spouse Shweta calling with pt's AM fasting blood sugar readings: 11/03/23 284 11/04/23 241 11/05/23 376 11/06/23 191 11/07/23 281 Verified with that pt is glargine insulin 14 units daily & humalog per sliding scal\e. Marley Bradley LPN documented in this encounter [facility] 11-07-2023 Telephone encounter Note Increase glargine insulin to 18 units insulin and call sugars in one week. See last note, was supposed to make appt to be seen [facility] 11-07-2023 Telephone encounter Note Spouse Shweta calling with pt's AM fasting blood sugar readings: 11/03/23 284 11/04/23 241 11/05/23 376 11/06/23 191 11/07/23 281 Verified with that pt is glargine insulin 14 units daily & humalog per sliding scal\e. Marley Bradley LPN [facility] 11-02-2023 Telephone encounter Note Pt notified and voiced understanding. Josefina Andujar MA [facility] 11-02-2023 Miscellaneous Notes Pt notified and voiced understanding. Josefina Andujar MA Message left for pt to call back for results. Josefina Andujar MA Change glargine to 14 units a day. Call bring call sugars in two days. Glargine is 12 units once daily as listed. Appt time adjusted so patient can come to office for visit. Verify how much glargine. Would prefer he be seen in person given the pneumonia. Patient's spouse Shweta calling regarding patient. Pt had ER visit at [facility] 10/18/23 for pneumonia. He was ordered an antibiotic and pt has completed the regimen. Spouse state's patient feels better but still has a little cough. No chest pain, SOB, fever or other sx's. ER F/U appt made with Dario Riddle CNP for 11/03/23. Spouse requesting this ER F/U to be virtual, if provider agreeable. Please call her back to let he know if this can be done virtually. Reports patient's blood sugars have been running in the higher 200's to low 300's. Patient taking Humalog per sliding scale QID and Insulin Glargine 12 units once daily. states she thought he was taking Metformin as well but no recent order seen to indicate this. Please call Shweta back with replies. Thank you. documented in this encounter [facility] 10-30-2023 Telephone encounter Note Message left for pt to call back for results. Josefina Andujar MA [facility] 10-30-2023 Telephone encounter Note Change glargine to 14 units a day. Call bring call sugars in two days. [facility] 10-30-2023 Telephone encounter Note Glargine is 12 units once daily as listed. Appt time adjusted so patient can come to office for visit. [facility] 10-30-2023 Telephone encounter Note Verify how much glargine. Would prefer he be seen in person given the pneumonia. [facility] 10-30-2023 Telephone encounter Note Patient's spouse Shweta calling regarding patient. Pt had ER visit at [facility] 10/18/23 for pneumonia. He was ordered an antibiotic and pt has completed the regimen. Spouse state's patient feels better but still has a little cough. No chest pain, SOB, fever or other sx's. ER F/U appt made with Dario Riddle CNP for 11/03/23. Spouse requesting this ER F/U to be virtual, if provider agreeable. Please call her back to let he know if this can be done virtually. Reports patient's blood sugars have been running in the higher 200's to low 300's. Patient taking Humalog per sliding scale QID and Insulin Glargine 12 units once daily. states she thought he was taking Metformin as well but no recent order seen to indicate this. Please call Shweta back with replies. Thank you. [facility] 10-27-2023 History of Presen t illness Narrative POPULATION HEALTH NAVIGATION OUTREACH Action/FYI 1st attempt Summary: ED utilization review per request of payer [facility] MIGUELITO RN Patient identified by name and date of . Reason for review or outreach: Chart Review [facility] Emergency Department Utilization REQUESTED ACTION/FYI: Please see ED Utilization summary below: A follow-up appointment is not noted in patient's record. We are forwarding this patient to [employer] Navigation to schedule a [facility] 10/18/23 PCP follow-up appointment. Thank you VM left for a return call Due for ER follow up Postponed 2 days Reason for Outreach Community Monitoring/Network Navigator Pools & Phone Line: [facility] Patient Contacted: Unable or unnecessary to reach patient: Left message Navigation Signature: Apple Valadez MA October 27, 2023 11:27 AM Summary: ED utilization review per request of payer [facility] MIGUELITO RN Patient identified by name and date of . Reason for review or outreach: Chart Review [facility] Department Utilization REQUESTED ACTION/FYI: Please see ED Utilization summary below: A follow-up appointment is not noted in patient's record. We are forwarding this patient to [employer] to schedule a [facility] 10/18/23 PCP follow-up appointment. Thank you Cardiology F/U 12/11/23 Exclusion Criteria - Does not meet exclusion criteria ED DIAGNOSES/REASON(S) FOR ED USE: [facility] 10/18/23 Fatigue, elevated blood sugars OTHER FINDINGS/SUMMARY: Unable to find [facility] plan notes in Care everywhere Patient Attributed To: ANNIKA Payer: [employer]ad[employer]CH Action Taken: Referrals/Routed: Population Health Navigation: Appointment. Router to [facility] [[id number]] Contact made with patient: No, Chart review only. Signature: Mallika GR,RN,[facility] [employer] Management Contract RN [phone] documented in this encounter [facility] 10-25-2023 Telephone encounter Note Prescription Refill Information The patient has been identified by name and date of : Yes Caregiver verified no other encounters exist for this prescription request: Yes Caregiver confirmed with patient/requestor that no other refills are due, in the near future, with this provider at this time: Yes The last office visit in the department: 07/05/23 Does the patient have a future office visit with this provider/department: No Requested Prescriptions Pending Prescriptions Disp Refills ammonium lactate (LAC-HYDRIN) 12 % cream 385 g 3 Sig: Apply to affected area as needed for dry skin. Ya Granger October 25, 2023 1:48 PM [facility] 10-25-2023 Miscellaneous Notes Prescription Refill Information The patient has been identified by name and date of : Yes Caregiver verified no other encounters exist for this prescription request: Yes Caregiver confirmed with patient/requestor that no other refills are due, in the near future, with this provider at this time: Yes The last office visit in the department: 07/05/23 Does the patient have a future office visit with this provider/department: No Requested Prescriptions Pending Prescriptions Disp Refills ammonium lactate (LAC-HYDRIN) 12 % cream 385 g 3 Sig: Apply to affected area as needed for dry skin. Ya Granger October 25, 2023 1:48 PM documented in this encounter [facility] 10-19-2023 Telephone encounter Note The patient has been identified by name and date of : Yes Caregiver verified no other encounters exist for this prescription request: Yes Caregiver confirmed with patient/requestor that no other refills are due, in the near future, with this provider at this time: Yes The last office visit in the department: 07/05/2023 Does the patient have a future office visit with this provider/department: not scheduled yet-has been advised to make appt Requested Prescriptions Pending Prescriptions Disp Refills traZODone (DESYREL) 50 mg tablet 30 tablet 2 Sig: Take 1 tablet by mouth daily at bedtime. Pregabalin (LYRICA) 200 mg capsule 90 capsule 1 Sig: Take 1 capsule by mouth daily at bedtime for 180 days. pregabalin (LYRICA) 100 mg capsule 90 capsule 0 Sig: Take 1 capsule by mouth once daily for 90 days. docusate sodium (COLACE) 100 mg capsule 180 capsule 1 Sig: Take 1 capsule by mouth two times a day. pantoprazole DR (PROTONIX) 40 mg tablet 90 tablet 1 Sig: Take 1 tablet by mouth daily before breakfast. Take on empty stomach, 1/2 hr before meal. metoprolol tartrate 37.5 mg tab 180 tablet 1 Sig: Take 1 tablet by mouth every 12 hours. bumetanide (BUMEX) 1 mg tablet 360 tablet 1 Sig: Take 2 tablets by mouth two times a day. Janki Vale RN [facility] 10-19-2023 Miscellaneous Notes The patient has been identified by name and date of : Yes Caregiver verified no other encounters exist for this prescription request: Yes Caregiver confirmed with patient/requestor that no other refills are due, in the near future, with this provider at this time: Yes The last office visit in the department: 07/05/2023 Does the patient have a future office visit with this provider/department: not scheduled yet-has been advised to make appt Requested Prescriptions Pending Prescriptions Disp Refills traZODone (DESYREL) 50 mg tablet 30 tablet 2 Sig: Take 1 tablet by mouth daily at bedtime. Pregabalin (LYRICA) 200 mg capsule 90 capsule 1 Sig: Take 1 capsule by mouth daily at bedtime for 180 days. pregabalin (LYRICA) 100 mg capsule 90 capsule 0 Sig: Take 1 capsule by mouth once daily for 90 days. docusate sodium (COLACE) 100 mg capsule 180 capsule 1 Sig: Take 1 capsule by mouth two times a day. pantoprazole DR (PROTONIX) 40 mg tablet 90 tablet 1 Sig: Take 1 tablet by mouth daily before breakfast. Take on empty stomach, 1/2 hr before meal. metoprolol tartrate 37.5 mg tab 180 tablet 1 Sig: Take 1 tablet by mouth every 12 hours. bumetanide (BUMEX) 1 mg tablet 360 tablet 1 Sig: Take 2 tablets by mouth two times a day. Janki Vale RN documented in this encounter [facility] 10-18-2023 Telephone encounter Note Advised patients Shweta that patient needs to go to the ER as advised now and previously. She verbalized understanding. Allison Omalley MA [facility] 10-18-2023 Miscellaneous Notes Advised patients Shweta that patient needs to go to the ER as advised now and previously. She verbalized understanding. Allison Omalley MA If sleepy etc and sugars are high, something else may be going on. Concur with previous message. Once stable, we need to see him either virtually or in person. Patient's Shweta calls and is concerned because patient still is having high sugars in the 300s. Patient was previously advised on 10/05/2023 by airconditioning engineer doctor that if patient has symptoms of fatigue and blood sugars above 300 recommendations would be to go to ER. states that patient continues to be sleepy and fatigued. reports that sugars did go down some but they are now back up in the 300s. states that patient did not go to ER previously because they were not sure how they were going to get patient out of house. asking if provider can adjust patient's insulins? Please review and advise, Apple Allen RN documented in this encounter [facility] 10-18-2023 Telephone encounter Note If sleepy etc and sugars are high, something else may be going on. Concur with previous message. Once stable, we need to see him either virtually or in person. [facility] 10-18-2023 Telephone encounter Note Patient's Shweta calls and is concerned because patient still is having high sugars in the 300s. Patient was previously advised on 10/05/2023 by airconditioning engineer doctor that if patient has symptoms of fatigue and blood sugars above 300 recommendations would be to go to ER. states that patient continues to be sleepy and fatigued. reports that sugars did go down some but they are now back up in the 300s. states that patient did not go to ER previously because they were not sure how they were going to get patient out of house. asking if provider can adjust patient's insulins? Please review and advise, Apple Allen RN [facility] 10-09-2023 Telephone encounter Note Prescription Refill Information The patient has been identified by name and date of : Yes Caregiver verified no other encounters exist for this prescription request: Yes Caregiver confirmed with patient/requestor that no other refills are due, in the near future, with this provider at this time: Yes The last office visit in the department: 07-05-23 Does the patient have a future office visit with this provider/department: Yes Requested Prescriptions Pending Prescriptions Disp Refills insulin needles, DISPOSABLE, (PEN NEEDLE) 31 gauge x 5/16 100 Each 11 Sig: Use one needle per dose. 4per day. Rae Granger October 09, 2023 12:05 PM [facility] 10-09-2023 Miscellaneous Notes Prescription Refill Information The patient has been identified by name and date of : Yes Caregiver verified no other encounters exist for this prescription request: Yes Caregiver confirmed with patient/requestor that no other refills are due, in the near future, with this provider at this time: Yes The last office visit in the department: 07-05-23 Does the patient have a future office visit with this provider/department: Yes Requested Prescriptions Pending Prescriptions Disp Refills insulin needles, DISPOSABLE, (PEN NEEDLE) 31 gauge x 5/16 100 Each 11 Sig: Use one needle per dose. 4per day. Rae Granger October 09, 2023 12:05 PM documented in this encounter [facility] 10-05-2023 Telephone encounter Note Patient's notified of provider recommendations below. voices understanding. Apple Allen RN [facility] 10-05-2023 Miscellaneous Notes Patient's notified of provider recommendations below. voices understanding. Apple Allen RN With symptoms of fatigue and high sugars above 300 would recommend evaluation in the ER for DKA or other infections that may be causing high sugars. Again, it looks like his diabetes was well controlled on his last A1c, so this seems unusual for him. Patient's Shweta calls and states that patient is feeling ok this morning. Shweta reports other than feeling tired he doesn't have any other symptoms when blood sugar is elevated. Shweta reports that blood sugar last evening was in 200s. Patient's blood sugar this morning is 377. Advised Shweta that if patient is having symptoms of continued fatigue, nausea/vomiting, abdominal pain, confusion, SOB would recommend ER evaluation now. Shweta voices understanding. Apple Allen RN Can we try reaching out to this patient again. If he is not responding I may need to call for well check on him. TC patient, left message for patient to call back and speak with a triage nurse regarding symptoms. Apple Allen RN Patient added to triage nurse call back schedule for this morning to discuss current condition and to be advised on provider's plan of care. I am not sure why I was not paged for this yesterday if it was not able to be addressed by PCP team or my GLOBAL COMPENSATION MANAGER. How is patient feeling this morning? What are his sugar readings now? Last A1c was in normal range at 6.5, so readings in the 500's would be very concerning for DKA. If he is having symptoms of continued fatigue, nausea/vomiting, abdominal pain, confusion, SOB would recommend ER evaluation now. Patient calling, states that his BS last night was 505 before bed. He had taken all medication as prescribed. This morning it was 272 fasting. Today as the day has gone on his Anahi is just reading high but not giving a number. He is feeling tired but otherwise feels fine. Please advise. documented in this encounter [facility] 10-05-2023 Telephone encounter Note With symptoms of fatigue and high sugars above 300 would recommend evaluation in the ER for DKA or other infections that may be causing high sugars. Again, it looks like his diabetes was well controlled on his last A1c, so this seems unusual for him. [facility] Work Phone: 10-05-2023 Telephone encounter Note Patient's Shweta calls and states that patient is feeling ok this morning. Shweta reports other than feeling tired he doesn't have any other symptoms when blood sugar is elevated. Shweta reports that blood sugar last evening was in 200s. Patient's blood sugar this morning is 377. Advised Shweta that if patient is having symptoms of continued fatigue, nausea/vomiting, abdominal pain, confusion, SOB would recommend ER evaluation now. Shweta voices understanding. Apple Allen RN [facility] 10-05-2023 Telephone encounter Note Can we try reaching out to this patient again. If he is not responding I may need to call for well check on him. [facility] 10-05-2023 Telephone encounter Note TC patient, left message for patient to call back and speak with a triage nurse regarding symptoms. Apple Allen RN [facility] 10-05-2023 Telephone encounter Note See Telephone Encounter T [facility] 10-05-2023 Miscellaneous Notes See Telephone Encounter documented in this encounter [facility] 10-05-2023 Telephone encounter Note Patient added to triage nurse call back schedule for this morning to discuss current condition and to be advised on provider's plan of care. [facility] 10-05-2023 Telephone encounter Note I am not sure why I was not paged for this yesterday if it was not able to be addressed by PCP team or my GLOBAL COMPENSATION MANAGER. How is patient feeling this morning? What are his sugar readings now? Last A1c was in normal range at 6.5, so readings in the 500's would be very concerning for DKA. If he is having symptoms of continued fatigue, nausea/vomiting, abdominal pain, confusion, SOB would recommend ER evaluation now. [facility] 10-04-2023 Telephone encounter Note Patient calling, states that his BS last night was 505 before bed. He had taken all medication as prescribed. This morning it was 272 fasting. Today as the day has gone on his Anahi is just reading high but not giving a number. He is feeling tired but otherwise feels fine. Please advise. [facility] 09-25-2023 Telephone encounter Note Faxed to [employer] as requested. Notified Shweta. [facility] 09-25-2023 Miscellaneous Notes Faxed to [employer] as requested. Notified Shweta. printed Pt's calling back to let pcp know that [employer] will cover adult briefs(Depends). Pt needs X-large size. Please fax order to [employer]. Please contact pt's Shweta when order has been faxed. If office gets her vm she does not know how to use it and requests that office contact their daughter Gissell at [phone] and leave message if Gissell does not answer. Samy Keith LPN Attempted to contact pt with no answer. Left voicemail to return call with the information from insurance. Contacted Shweta and she states she has not checked with insurance yet but will do it today and return the call with that information. Pt's Shweta calling and is asking for prescription to get adult pullups for pt. She states he had a stroke in March and has been having accidents. Asked her if she knows if her insurance will cover these and if so, where do we send the prescription to get the pullups. She did not check with insurance so she will contact them and give us a call back. documented in this encounter [facility] 09-25-2023 Telephone encounter Note printed [facility] 09-25-2023 Telephone encounter Note Pt's calling back to let pcp know that [employer] will cover adult briefs(Depends). Pt needs X-large size. Please fax order to [employer]. Please contact pt's Shweta when order has been faxed. If office gets her vm she does not know how to use it and requests that office contact their daughter Gissell at [phone] and leave message if Gissell does not answer. Samy Keith LPN [facility] 09-25-2023 Telephone encounter Note Attempted to contact pt with no answer. Left voicemail to return call with the information from insurance. Contacted Shweta and she states she has not checked with insurance yet but will do it today and return the call with that information. [facility] 09-22-2023 Telephone encounter Note Pt's Shweta calling and is asking for prescription to get adult pullups for pt. She states he had a stroke in March and has been having accidents. Asked her if she knows if her insurance will cover these and if so, where do we send the prescription to get the pullups. She did not check with insurance so she will contact them and give us a call back. [facility] 09-19-2023 Telephone encounter Note Everything faxed. Allison Omalley MA [facility] 09-19-2023 Miscellaneous Notes Everything faxed. Allison Omalley MA printed Fax received from [facility] requesting a quad can and tub transfer bench. They ask that the orders be faxed to Anastacio Shafer at [phone] with any relevant chart notes. Fax placed on provider's desk. Elma Guthrie MA September 19, 2023 1:16 PM documented in this encounter [facility] 09-19-2023 Telephone encounter Note printed [facility] 09-19-2023 Telephone encounter Note Fax received from [facility] requesting a quad can and tub transfer bench. They ask that the orders be faxed to Anastacio Shafer at [phone] with any relevant chart notes. Fax placed on provider's desk. Elma Guthrie MA September 19, 2023 1:16 PM [facility] 08-07-2023 Telephone encounter Note The patient has been identified by name and date of : Yes Caregiver verified no other encounters exist for this prescription request: Yes Caregiver confirmed with patient/requestor that no other refills are due, in the near future, with this provider at this time: Yes The last office visit in the department: 07/05/2023 Does the patient have a future office visit with this provider/department: Yes Visit date not found Requested Prescriptions Pending Prescriptions Disp Refills flash glucose sensor (FREESTYLE ANAHI 2 SENSOR) kit 2 Each 11 Sig: DMII, insulin requiring. Testing 3-5 times q day Apple Allen RN August 07, 2023 10:52 AM [facility] 08-07-2023 Miscellaneous Notes The patient has been identified by name and date of : Yes Caregiver verified no other encounters exist for this prescription request: Yes Caregiver confirmed with patient/requestor that no other refills are due, in the near future, with this provider at this time: Yes The last office visit in the department: 07/05/2023 Does the patient have a future office visit with this provider/department: Yes Visit date not found Requested Prescriptions Pending Prescriptions Disp Refills flash glucose sensor (FREESTYLE ANAHI 2 SENSOR) kit 2 Each 11 Sig: DMII, insulin requiring. Testing 3-5 times q day Apple Allen RN August 07, 2023 10:52 AM documented in this encounter [facility] 07-25-2023 Telephone encounter Note Prescription Refill Information The patient has been identified by name and date of : Yes Caregiver verified no other encounters exist for this prescription request: Yes Caregiver confirmed with patient/requestor that no other refills are due, in the near future, with this provider at this time: Yes The last office visit in the department: 07/05/2023 Does the patient have a future office visit with this provider/department: No Requested Prescriptions Pending Prescriptions Disp Refills pregabalin (LYRICA) 100 mg capsule 90 capsule 0 Sig: Take 1 capsule by mouth once daily for 90 days. traZODone (DESYREL) 50 mg tablet 30 tablet 2 Sig: Take 1 tablet by mouth daily at bedtime. Apple Allen RN July 25, 2023 1:28 PM [facility] 07-25-2023 Miscellaneous Notes Prescription Refill Information The patient has been identified by name and date of : Yes Caregiver verified no other encounters exist for this prescription request: Yes Caregiver confirmed with patient/requestor that no other refills are due, in the near future, with this provider at this time: Yes The last office visit in the department: 07/05/2023 Does the patient have a future office visit with this provider/department: No Requested Prescriptions Pending Prescriptions Disp Refills pregabalin (LYRICA) 100 mg capsule 90 capsule 0 Sig: Take 1 capsule by mouth once daily for 90 days. traZODone (DESYREL) 50 mg tablet 30 tablet 2 Sig: Take 1 tablet by mouth daily at bedtime. Apple Allen RN July 25, 2023 1:28 PM documented in this encounter [facility] 07-21-2023 Telephone encounter Note ALANA Elizlade with [employer] calls to notify provider that patient is now on the waiver program. Joan Gallardo RN [facility] 07-21-2023 Miscellaneous Notes ALANA Elizalde with [employer] calls to notify provider that patient is now on the waiver program. Joan Gallardo RN documented in this encounter [facility] 07-19-2023 Telephone encounter Note Marley called from [facility] and to report that patient was discharged for OT and Home Health Services today. [facility] 07-19-2023 Miscellaneous Notes Marley called from [facility] and to report that patient was discharged for OT and Home Health Services today. Reuben PT- [facility]- reports he discharged patient today from PT. Reports patient has reached a plateu- and does not show interest in doing things for himself as he has family members who do everything for him. Patient is not motivated to do things for himself although he is able to. documented in this encounter [facility] 07-17-2023 Telephone encounter Note Reuben PT- [facility]- reports he discharged patient today from PT. Reports patient has reached a plateu- and does not show interest in doing things for himself as he has family members who do everything for him. Patient is not motivated to do things for himself although he is able to. [facility] 07-13-2023 Telephone encounter Note July OT with [facility] called and is notified of providers message. She voices understanding. Tony Palma RN [facility] 07-13-2023 Miscellaneous Notes July OT with [facility] called and is notified of providers message. She voices understanding. Tony Palma RN ok July OT with [facility] she states they were supposed to reassess Pt today, but Pt missed visit as he was having too much back pain. She is asking for a verbal order to see the Pt next week for reassessment. documented in this encounter [facility] 07-13-2023 Telephone encounter Note ok [facility] 07-13-2023 Telephone encounter Note July OT with [facility] she states they were supposed to reassess Pt today, but Pt missed visit as he was having too much back pain. She is asking for a verbal order to see the Pt next week for reassessment. [facility] 07-05-2023 Angela Thao APRN.GUEST HISTORY CLERK - 07/05/2023 1:48 PM EDT Set up with GI. To ER with any recurrence of symptoms. documented in this encounter [facility] 07-05-2023 History of Presen t illness Narrative This is a 62 year old male who presents today with: Patient presents with: Transition Of Care HISTORY OF PRESENT ILLNESS: Kiel Catherine is a 62 year old male. Patient presents with: Transition Of Care Patient presents today for hospital follow-up. He was admitted to [facility] on 06/21/2023. He presented to the emergency room via EMS secondary to abdominal pain. This was accompanied by nausea and constipation. CT of the abdomen showed a small bowel obstruction with question of early ischemic change. CBC showed a white count of 12.8 with 77% neutrophils. Hemoglobin was 16. Chemistry studies revealed a BUN of 30 and a creatinine of 1.25. Glucose was 305. LFTs significant for an alk phos of 129. Urinalysis reveals 1+ bacteria with no other signs of infection. It was noted that patient has had recurrent problems with bowel obstruction since his stroke in March. Dr. Ramos from general surgery was consulted. He was admitted to medicine. Treated medically each time. Taking miralax daily. Moves bowels daily. Never hard. Will get pain in the abdomen after eating. No pain with stooling. Actually gets relief. PAST MEDICAL HISTORY: PAST MEDICAL HISTORY Diagnosis Date Acute ischemic left MCA stroke (HCC) 03/22/2023 Anxiety Aortic valve stenosis, nonrheumatic Atrial septal defect and mitral stenosis Bicuspid aortic valve Bipolar 1 disorder ([facility]) Chronic obstructive pulmonary disease (COPD) ([facility]) Coronary artery disease Degenerative disc disease sees Dr. Sellers Diabetic neuropathy ([facility]) DM (diabetes mellitus) ([facility]) HTN (hypertension) Hyperkalemia Hyperlipidemia Hypogonadism male LVH (left ventricular hypertrophy) Morbid obesity ([facility]) MANISH on CPAP Pain management Dr. Sellers PAST SURGICAL HISTORY Procedure Laterality Date BACK SURGERY HX fusion- lumbar CARPAL TUNNEL both HEART SURGERY HX 03/20/2023 S/p 03/20/2023 AVR (27 Epic plus) and Ascending repair (28 hemishield) PAST SURGICAL HISTORY OF left shouder surgery PAST SURGICAL HISTORY OF nasal passages clearing for sleep apnea PAST SURGICAL HISTORY OF 02/13/1981 ORIF right ankle PAST SURGICAL HISTORY OF 04/03/2013 left ulnar nerve decompression ALLERGIES Iodinated Contrast Media, Lisinopril, Penicillins, and Flonase [Fluticasone Propionate] MEDICATIONS Current Outpatient Medications Medication Sig predniSONE (DELTASONE) 50 mg take 1 tablet 13, 7 (SEVEN), and 1 hour prior DIRECTED furosemide (LASIX) 40 mg tablet Take by mouth. traMADol (ULTRAM) 50 mg tablet Take 1 tablet by mouth every 8 hours as needed for pain for up to 14 days. ondansetron (ZOFRAN) 4 mg tablet Take 1 tablet by mouth every 8 hours as needed for nausea/vomiting. apixaban (ELIQUIS) 5 mg tab(s) Take 1 tablet by mouth two times a day. MULTIVITAMIN-FERROUS FUMARATE-FOLIC ACID 18 MG-400 MCG TABLET Take 1 tablet by mouth daily with breakfast. polyethylene glycol 3350 17 gram packet Take 1 Packet by mouth once daily. Dissolve dose in 4 - 8 ounces of liquid and take as directed. Insulin Syringe-Needle U-100 0.5 mL 29 gauge x 1/2 4 Each once daily. insulin lispro (HUMALOG U-100 INSULIN) 100 unit/mL injection Per sliding scale QID traZODone (DESYREL) 50 mg tablet Take 1 tablet by mouth daily at bedtime. Melatonin 5 mg cap Take by mouth. bumetanide (BUMEX) 1 mg tablet Take 2 tablets by mouth two times a day. amLODIPine (NORVASC) 5 mg tablet Take 1 tablet by mouth once daily. atorvastatin (LIPITOR) 10 mg tablet Take 1 tablet by mouth daily at bedtime. metoprolol tartrate 37.5 mg tab Take 1 tablet by mouth every [address] (PROTONIX) 40 mg tablet Take 1 tablet by mouth daily before breakfast. Take on empty stomach, 1/2 hr before meal. insulin glargine 100 unit/mL (3 mL) Inject 12 Units subcutaneously once daily. pregabalin (LYRICA) 100 mg capsule Take 1 capsule by mouth once daily for 90 days. Pregabalin (LYRICA) 200 mg capsule Take 1 capsule by mouth daily at bedtime for 180 days. docusate sodium (COLACE) 100 mg capsule Take 1 capsule by mouth two times a day. insulin needles, DISPOSABLE, (PEN NEEDLE) 31 gauge x 5/16 Use one needle per dose. 4per day. acetaminophen (TYLENOL) 650 mg/20.3 mL soln 20.3 mL by ORAL/FEEDING TUBE route every 4 hours as needed for pain. Do not exceed 5 doses in 24 hours. aspirin 81 mg chewable tablet 1 tablet by CORPAK route once daily. guaiFENesin (ROBITUSSIN) 100 mg/5 mL syrup 10 mL by ORAL/FEEDING TUBE route every 6 hours. (Patient not taking: Reported on 06/06/2023) ipratropium-albuterol (DUONEB) 0.5 mg-3 mg(2.5 mg base)/3 mL nebu Inhale 3 mL as instructed four times daily. magnesium hydroxide (MOM) 400 mg/5 mL suspension 30 mL by CORPAK route every 6 hours as needed. ammonium lactate (LAC-HYDRIN) 12 % cream Apply to affected area as needed for dry skin. budesonide-formoterol (SYMBICORT) 80-4.5 mcg/actuation inhaler Inhale 2 Puffs as instructed two times a day. PEG 400-propylene glycol (SYSTANE ULTRA) 0.4-0.3 % ophthalmic solution Use 1 Drop in both eyes three times daily. (Patient not taking: Reported on 06/06/2023) propylene glycoL (SYSTANE BALANCE) 0.6 % drop Use 1 Drop in both eyes daily at bedtime. (Patient not taking: Reported on 06/06/2023) albuterol HFA (PROVENTIL HFA, VENTOLIN HFA) 90 mcg/actuation inhaler Inhale 2 Puffs as instructed every 4 hours as needed for wheezing/shortness of breath. Current Facility-Administered Medications Medication Dose Route Frequency sodium chloride 0.9 % (flush) 10 mL (BD POSIFLUSH) 10 mL INTRAVENOUS DIRECTED PRN FAMILY HISTORY Problem Relation Age of Onset Diabetes Father 2011 with pneumonia other (Dementia) Father Heart Mother CABG 4. Diabetes Sister Ischemic Heart Disease Brother other (Myocardial infarc) Brother Fatal [place] No Ocular Disease No Family History Social History Tobacco Use Smoking status: Every Day Packs/day: 0.50 Years: 45.00 Additional pack years: 0.00 Total pack years: 22.50 Types: Cigarettes Smokeless tobacco: Never Vaping Use Vaping Use: Never used Substance Use Topics Alcohol use: Yes Comment: Rarely. 2 beers a year Drug use: No EXAM: BP 116/70 Pulse 81 Resp 16 Wt 104.3 kg (230 lb) BMI 39.48 kg/m PHYSICAL EXAM: General Appearance: Well appearing, alert, in no acute distress, well-hydrated, well nourished.. Skin: Skin color, texture, turgor normal, no suspicious rashes or lesions. Head: Normocephalic, no masses, lesions, tenderness or abnormalities. Eyes: Anicteric sclera.Extraocular movements are intact. . Lungs: Lungs clear to auscultation. No wheezing, rhonchi, rales.. Heart: RRR without murmur, gallop, or rubs. No ectopy. Abdomen: Abdomen soft, non-tender. Bowel sounds normal. No masses, organomegaly. Extremities: No deformities, +1 edema, skin discoloration, clubbing or cyanosis. Good capillary refill. Neurologic: answers appropriately. Speech slow. Right sided weakness. ASSESSMENT/PLAN: 1. SBO (small bowel obstruction) (HCC) - ICD9: 560.9, ICD10: K56.609 Patient with recurrent episodes of small bowel obstruction. Will go ahead and refer to gastroenterology for further evaluation and treatment of recurrence. In the interim, he should return to the ER with any further episodes. - CONSULT TO GASTROENTEROLOGY Discussed treatment plan and patient voices understanding. Patient's questions answered appropriately. Medications and potential side effects were discussed and patient voices understanding. Return to the office as scheduled or as needed for worsening/no improvement. Angela Schmid APRN.GUEST HISTORY CLERK documented in this encounter [facility] 07-03-2023 Instructions Laurel Pierce DO - 07/03/2023 10:53 AM EDT Images from the original note were not included. Regarding your visit at the [facility] we discussed the following: Impression: Left MCA ischemic stroke: embolic, 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 No afib diagnosis, would recommend zio patch to evaluate for afib if patient desires to ensure no other risk for ischemic stroke in the future Right hemiparesis: secondary to stroke Hypertension: Blood pressure goal < 130/80 Blood pressure today: BP 145/68 Pulse 81 Resp 20 Ht 162.6 cm (5' 4) Wt 104.6 kg (230 lb 9.6 oz) BMI 39.58 kg/m Hyperlipidemia: LDL goal < 70 Most recent LDL: LDL Cholesterol (mg/dL) Date Value 03/23/2023 61 03/20/2020 50 LDL Cholesterol, Nonfasting (mg/dL) Date Value 10/25/2022 68 Diabetes: Hba1c goal < 7.0 Most recent Hba1c: Hemoglobin A1C (%) Date Value 05/22/2023 6.5 06/24/2020 9.6 Plan: Continue aspirin 81mg daily and remain on this lifelong, unless has afib, then recommend switching to AC Recommend cardiac monitoring to evaluate for atrial fibrillation. Patient wants to do this through cardiology in [place] Continue therapies at home for stroke recovery Lifestyle modification -Recommend mediterranean diet -Regular exercise Management of hypertension, hyperlipidemia, and diabetes with primary care provider with terminal block assembler goals as above Counseled patient on signs and symptoms of stroke if develops them in the future, seek medical attention immediately by calling [id number] Stroke Signs and Symptoms: *Stroke is a medical emergency. Know the warning signs of stroke: Sudden numbness or weakness of the face, arm or leg, especially on one side of the body Sudden confusion, trouble speaking, or understanding Sudden trouble seeing in one eye, or both eyes Sudden trouble walking, dizziness, loss of balance, or coordination Sudden severe headache with no known cause *If you, or someone with you, has one or more of these signs, don't delay! Immediately call 911, or the emergency medical services (EMS) number so an ambulance can be sent for you. Also, check the time so that you will know when the symptoms first appeared. It is very important to take immediate action, every second counts. Medical treatment may be available if action is taken early enough. ~~~~~~~~~~~~~~~~~~~~~~~~~~~~~~~~ ~~~~~~~~~~~~~~~~~~~~~~~~~~~~~~~~ ~~~~~~~~ General Guidelines to Help Reduce Risk of Recurrent Stroke Blood Pressure - Blood Pressure reduction is recommended for both prevention of recurrent stroke and prevention of other vascular events in persons who have had an ischemic stroke or transient ischemic attack (TIA) and are beyond the first 24 hours. - Several lifestyle modifications have been associated with BP reduction and are a reasonable part of a comprehensive antihypertensive therapy - These modifications include: - salt restriction - weight loss - consumption of a diet rich in fruits, vegetables, and low-fat dairy products - regular aerobic physical activity - limited alcohol consumption Goal: 130/80 if you have had a stroke. This blood pressure goal may be lower if you have diabetes Perform annual BP screening and lifestyle modifications Hypertension: Combine medications with above lifestyle modifications to reach your goal blood pressure as defined above. Monitor your blood pressure at home regularly to ensure you are reaching your goals Diabetes - Maintain good control of diabetes if you have it by working with your primary care physician to adjust medications and lifestyle (diet) modification -A1C goal less than 7.0 Cholesterol and Lipid Management - Statin therapy with intensive lipid-lowering effects is recommended to reduce risk of stroke and cardiovascular events among patients with ischemic stroke or TIA who have evidence of atherosclerosis. care home goal LDL is less than 70 in most stroke patients. Diet - Limit carbohydrates, saturated and trans fats, sodium, sweets, and red meat - Consume fruits, vegetables, whole grains, low-fat dairy products, skinless poultry, nuts and legumes - Consider the DASH (Dietary Approaches to Stop Hypertension) diet (if you have hypertension) or the Mediterranean diet - more information: https://www.heart.org/en/healthy -living/healthy-eating/eat-smart /nutrition-basics/xgr-dbav-kry-l ifestyle-recommendations Smoking and Tobacco Use (including e-cigarettes) - Strongly recommend against smoking and tobacco use - Strongly recommend against second hand smoke exposure. This is just as harmful as smoking yourself - Counseling, nicotine products, and oral smoking cessation medications are effective for helping smokers quit Alcohol Consumption - Heavy drinkers should eliminate or reduce their consumption of alcohol. - Persons who continue drinking the following may be reasonable: - less than or equal to 2 drinks/day for men - less than or equal to 1 drink/day for non women Exercise - If capable of engaging in physical activity, at least 20-30 minutes of moderate to vigorous intensity physical exercise, typically defined as vigorous activity sufficient to break a sweat or noticeably raise heart rate, 3-5 days a week (eg, walking briskly, using an exercise bicycle) may be considered to reduce the risk factors and comorbid conditions that increase the likelihood of recurrent stroke - Avoid prolonged sitting. Get up and walk around for about 5-10 minutes if you sit for 2 hours at a time. - If disability after ischemic stroke, supervision by a healthcare professional, such as a physical therapist or cardiac rehabilitation professional, at least on initiation of an exercise regimen, may be considered documented in this encounter [facility] 07-03-2023 History of Presen t illness Narrative [facility] Established Visit Consultation is requested by: No referring provider defined for this encounter. PCP: Alyson Arthur [address] [place] [address] CEREBROVASCULAR HISTORY Kiel Catherine is a 62 year old right-handed male with diabetes, hypertension, here for stroke follow up. Stroke Event Information -in Apr 08 had aortic valve surgery. About 3 days later, noted right arm and leg weakness per patient. Per chart review, had weakness found after extubation which was 1 day after valve surgery -had left mca ischemic stroke -been on aspirin -went to rehab post stroke -has some right arm weakness still and leg weakness. In wheelchair. Still getting therapies at home once a week -daughter at visit with patient -he wants to follow up closer to home in [place]. Does not want any additional follow up here given distance PAST MEDICAL HISTORY Diagnosis Date Acute ischemic left MCA stroke (HCC) 03/22/2023 Anxiety Aortic valve stenosis, nonrheumatic Atrial septal defect and mitral stenosis Bicuspid aortic valve Bipolar 1 disorder (HCC) Chronic obstructive pulmonary disease (COPD) (HCC) Coronary artery disease Degenerative disc disease sees Dr. Sellers Diabetic neuropathy ([facility]) DM (diabetes mellitus) ([facility]) HTN (hypertension) Hyperkalemia Hyperlipidemia Hypogonadism male LVH (left ventricular hypertrophy) Morbid obesity ([facility]) MANISH on CPAP Pain management Dr. Sellers PAST SURGICAL HISTORY Procedure Laterality Date BACK SURGERY HX fusion- lumbar CARPAL TUNNEL both HEART SURGERY HX 03/20/2023 S/p 03/20/2023 AVR (27 Epic plus) and Ascending repair (28 hemishield) PAST SURGICAL HISTORY OF left shouder surgery [...] Disease Brother other (Myocardial infarc) Brother Fatal [place] No Ocular Disease No Family History Social History Tobacco Use Smoking status: Every Day Packs/day: 0.50 Years: 45.00 Additional pack years: 0.00 Total pack years: 22.50 Types: Cigarettes Smokeless tobacco: Never Vaping Use Vaping Use: Never used Substance Use Topics Alcohol use: Yes Comment: Rarely. 2 beers a year Drug use: No MEDICATIONS Current Outpatient Medications Medication Sig predniSONE (DELTASONE) 50 mg take 1 tablet 13, 7 (SEVEN), and 1 hour prior DIRECTED furosemide (LASIX) 40 mg tablet Take by mouth. apixaban (ELIQUIS) 5 mg tab(s) Take 1 tablet by mouth two times a day. amLODIPine (NORVASC) 5 mg tablet Take 1 tablet by mouth once daily. atorvastatin (LIPITOR) 10 mg tablet Take 1 tablet by mouth daily at bedtime. acetaminophen (TYLENOL) 650 mg/20.3 mL soln 20.3 mL by ORAL/FEEDING TUBE route every 4 hours as needed for pain. Do not exceed 5 doses in 24 hours. aspirin 81 mg chewable tablet 1 tablet by CORPAK route once daily. ammonium lactate (LAC-HYDRIN) 12 % cream Apply to affected area as needed for dry skin. albuterol HFA (PROVENTIL HFA, VENTOLIN HFA) 90 mcg/actuation inhaler Inhale 2 Puffs as instructed every 4 hours as needed for wheezing/shortness of breath. traMADol (ULTRAM) 50 mg tablet Take 1 tablet by mouth every 8 hours as needed for pain for up to 14 days. ondansetron (ZOFRAN) 4 mg tablet Take 1 tablet by mouth every 8 hours as needed for nausea/vomiting. MULTIVITAMIN-FERROUS FUMARATE-FOLIC ACID 18 MG-400 MCG TABLET Take 1 tablet by mouth daily with breakfast. polyethylene glycol 3350 17 gram packet Take 1 Packet by mouth once daily. Dissolve dose in 4 - 8 ounces of liquid and take as directed. Insulin Syringe-Needle U-100 0.5 mL 29 gauge x 1/2 4 Each once daily. insulin lispro (HUMALOG U-100 INSULIN) 100 unit/mL injection Per sliding scale QID traZODone (DESYREL) 50 mg tablet Take 1 tablet by mouth daily at bedtime. Melatonin 5 mg cap Take by mouth. bumetanide (BUMEX) 1 mg tablet Take 2 tablets by mouth two times a day. metoprolol tartrate 37.5 mg tab Take 1 tablet by mouth every [address] (PROTONIX) 40 mg tablet Take 1 tablet by mouth daily before breakfast. Take on empty stomach, 1/2 hr before meal. insulin glargine 100 unit/mL (3 mL) Inject 12 Units subcutaneously once daily. pregabalin (LYRICA) 100 mg capsule Take 1 capsule by mouth once daily for 90 days. Pregabalin (LYRICA) 200 mg capsule Take 1 capsule by mouth daily at bedtime for 180 days. docusate sodium (COLACE) 100 mg capsule Take 1 capsule by mouth two times a day. insulin needles, DISPOSABLE, (PEN NEEDLE) 31 gauge x 5/16 Use one needle per dose. 4per day. guaiFENesin (ROBITUSSIN) 100 mg/5 mL syrup 10 mL by ORAL/FEEDING TUBE route every 6 hours. (Patient not taking: Reported on 06/06/2023) ipratropium-albuterol (DUONEB) 0.5 mg-3 mg(2.5 mg base)/3 mL nebu Inhale 3 mL as instructed four times daily. magnesium hydroxide (MOM) 400 mg/5 mL suspension 30 mL by CORPAK route every 6 hours as needed. budesonide-formoterol (SYMBICORT) 80-4.5 mcg/actuation inhaler Inhale 2 Puffs as instructed two times a day. PEG 400-propylene glycol (SYSTANE ULTRA) 0.4-0.3 % ophthalmic solution Use 1 Drop in both eyes three times daily. (Patient not taking: Reported on 06/06/2023) propylene glycoL (SYSTANE BALANCE) 0.6 % drop Use 1 Drop in both eyes daily at bedtime. (Patient not taking: Reported on 06/06/2023) Current Facility-Administered Medications Medication Dose Route Frequency sodium chloride 0.9 % (flush) 10 mL (BD POSIFLUSH) 10 mL INTRAVENOUS DIRECTED PRN ALLERGIES ALLERGIES Allergen Reactions Iodinated Contrast * GI Upset, Other: See Comments Hypotension, temporary SOB Lisinopril Other: See Comments Hyperkalemia Penicillins Rash Flonase [Fluticason* Other: See Comments Nose bleeds PHYSICAL EXAMINATION BP 145/68 Pulse 81 Resp 20 Ht 162.6 cm (5' 4) Wt 104.6 kg (230 lb 9.6 oz) BMI 39.58 kg/m General: Well-developed, well-nourished, in no acute distress, daughter at visit Pulse regular rate on palpation of radial artery Neurological Exam Mental Status: Awake, alert Slight decreased fluency Can repeat a phrase Can identify objects Mild to moderate dysarthria Cranial Nerves: 3, 4, 6: extra-ocular movements intact. No pathological nystagmus 7: right facial droop 8: hearing intact 11: 5/5 shoulder shrug 12: tongue midline Motor Exam: Can lift right arm 3/5 right hip flexion Trace movement in right fingers No movement in right foot Full strength on the left arm and leg Sensation: Intact in bilateral arm No abnormal movements No spasticity currently Gait: In wheelchair LABS Cholesterol: Cholesterol, Total (mg/dL) Date Value 03/23/2023 125 03/20/2020 136 LDL Cholesterol (mg/dL) Date Value 03/23/2023 61 03/20/2020 50 LDL Cholesterol, Nonfasting (mg/dL) Date Value 10/25/2022 68 HDL Cholesterol (mg/dL) Date Value 03/23/2023 36 03/20/2020 42 Triglyceride (mg/dL) Date Value 03/23/2023 142 03/20/2020 220 Diabetes: Hemoglobin A1C (%) Date Value 05/22/2023 6.5 06/24/2020 9.6 IMAGING HCT 04/08 independently reviewed and shows acute infarct in left temporal lobe MCA territory CTA head and neck 04/08 IMPRESSION: Evolving acute to subacute infarct in the left posterior MCA territory. No proximal intracranial large vessel occlusion. Previously noted punctate calcification along left M2 branch is poorly visualized, likely isodense to the contrast column. No clear evidence of occlusion or flow limitation this region, and this may reflect wall plaque. Intracranial atherosclerosis, with mild to moderate left and mild right narrowing the carotid siphons and mild narrowing in the right vertebral V4 segment. Atherosclerotic narrowing of the neck vessels: 30% stenosis of the proximal LEFT ICA. 40-50% stenosis of the proximal RIGHT ICA. Moderate narrowing at the left vertebral origin from the aortic arch. ECHO 04/08 CONCLUSIONS: - Technically difficult exam due to post op, bandages/chest tubes/wound, suboptimal positioning and body habitus. - Exam indication: S/p AVR - Grossly normal LV systolic function on very limited views, unable to accurately assess LV function/wall motion with further detail given limited imagin quality - Epic Plus prosthetic aortic valve (size #27). The peak gradient is 19 mmHg, the mean gradient is 9 mmHg and the dimensionless valve index is 0.49. OR Pk/Mn gradients of 16/7 mmHg. - extremely limited acoustic windows. - Exam was compared with the prior [facility] echocardiographic exam performed on 03/20/2023. s/p AVR. Patient Entered Questionnaires PROMIS/NeuroQoL Score Percentiles Percentiles provide an indication of how a patient's score ranks in relation to the [place] general population. > 31st percentile is within normal limits or better * < 31st percentile is at least SD worse than population, which may be clinically relevant < 16th percentile is at least 1 SD worse than population and warrants attention Depression Screenin02/20/2013 PHQ-9 Score 7 Self-Harm Response Not at all PHQ-9 Scores: PHQ-9 Self-Harm (Item 9) Response: 0 - 9 No to Mild depression 0 - Not at all 10 - 14 Moderate depression 1 - Several Days > 15 Severe depression 2 - More than half the days 3 - Nearly every day Stroke Mechanism and Scales 03/02/2023 Stroke Mechanism Ischemic Stroke or TIA Ischemic Stroke TOAST Mechanism ([facility]-MODIFIED) Cardioembolism Cardioembolism Other (see comment) Impression: Left MCA ischemic stroke: embolic, 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 No afib diagnosis, would recommend zio patch to evaluate for afib if patient desires to ensure no other risk for ischemic stroke in the future Right hemiparesis: secondary to stroke Hypertension: Blood pressure goal < 130/80 Blood pressure today: BP 145/68 Pulse 81 Resp 20 Ht 162.6 cm (5' 4) Wt 104.6 kg (230 lb 9.6 oz) BMI 39.58 kg/m Hyperlipidemia: LDL goal < 70 Most recent LDL: LDL Cholesterol (mg/dL) Date Value 03/23/2023 61 03/20/2020 50 LDL Cholesterol, Nonfasting (mg/dL) Date Value 10/25/2022 68 Diabetes: Hba1c goal < 7.0 Most recent Hba1c: Hemoglobin A1C (%) Date Value 05/22/2023 6.5 06/24/2020 9.6 Plan: Continue aspirin 81mg daily and remain on this lifelong, unless has afib, then recommend switching to AC Recommend cardiac monitoring to evaluate for atrial fibrillation. Patient wants to do this through cardiology in [place] Continue therapies at home for stroke recovery Lifestyle modification -Recommend mediterranean diet -Regular exercise Management of hypertension, hyperlipidemia, and diabetes with primary care provider with terminal block assembler goals as above Counseled patient on signs and symptoms of stroke if develops them in the future, seek medical attention immediately by calling I spent a total of 60 minutes on the date of service which included preparing to see the patient, [id number] patient care, completing clinical documentation, obtaining and/or reviewing separately obtained history, performing a medically appropriate examination, counseling and educating the patient/family/caregiver, and independently interpreting results (not separately reported) Has appt with neurology closer to home Wants to follow up prn with vascular neurology due to distance. Offered virtual follow up to check in on stroke recovery, he declined SIGNATURE Laurel Pierce DO Vascular Neurology [facility] Alyson Arthur [address] [place] [address] documented in this encounter [facility] 06-29-2023 Telephone encounter Note Agree with PT recommendations [facility] Work Phone: 06-29-2023 Miscellaneous Notes Agree with PT recommendations CARLTON Moses @ [facility] calling with plan of care. Physical Therapy will see patient 1 x/week for three weeks for mobility and balance. If agree, no call back needed. Tia Arenas RN documented in this encounter [facility] 06-29-2023 Telephone encounter Note CARLTON Moses @ [facility] calling with plan of care. Physical Therapy will see patient 1 x/week for three weeks for mobility and balance. If agree, no call back needed. Tia Arenas RN [facility] 06-28-2023 Telephone encounter Note Phoned Marley and left detailed message with verbal order from Dr Arthur on her voicemail. [facility] 06-28-2023 Miscellaneous Notes Phoned Marley and left detailed message with verbal order from Dr Arthur on her voicemail. ok Marley from [facility] calling asking for verbal order for 2 additional OT visits working with right upper extremity. Please advise documented in this encounter [facility] 06-28-2023 Telephone encounter Note ok [facility] 06-28-2023 Telephone encounter Note Marley from [facility] calling asking for verbal order for 2 additional OT visits working with right upper extremity. Please advise [facility] 06-27-2023 History of Presen t illness Narrative Thoracic and Cardiovascular Surgery [facility] CARDIOTHORACIC CLINIC NOTE CHART COPY DO NOT DISCARD Patient Type: Established Visit to determine Surgery: No PCP: Alyson Arthur [address] [place] [address] Referring Physician:: Elma Meeks [address] [facility] [address] Mr. Kiel Catherine returns to clinic today for follow-up after aortic surgery. He is a 62 year old male who is s/p Aortic Valve Replacement+ascending by me earlier this year. He is doing well. CTA today shows intact graft with no residual aneurysm.. Impression: Stable s/p Aortic Valve Replacement+Ascending Plan: Annual echocardiograms I spent more than 50% of the visit face to face counseling the patient on the plan and treatment options. The time spent counseling was 20 minutes. The total time of the face to face visit was 20 minutes. These findings will be communicated back to the requesting physician via mail. Shlomo Alcocer MD documented in this encounter [facility] 06-27-2023 History of Presen t illness Narrative Radiology Service Progress Note DATE OF SERVICE: June 27, 2023 TIME: 12:21 PM PATIENT WEIGHT: 245LBS PATIENT IDENTITY VERIFICATION COMPLETED USING TWO (2) [...] place to prevent falls during this visit? Non-Skid Socks Used, Yellow Falls Risk Wristband Applied, Instructed Patient to Call for Help if Needed, Offered Assistance with Transfers/Clothing, Instructed Patient to Remain Seated (Not on Exam Table) Until Exam, and Increased Observations by Caregivers PATIENT GENDER DATA: Male ALLERGIES: Reviewed and unchanged CONTRAST ALLERGY: Yes STANDARD PREMEDICATION: Prednisone 50mg Dose 1 taken at 2230, Dose 2 at 0330, and Dose 3 at 1030 Benadryl 50mg 1030 EXAM: CT -CONTRAST INDUCED NEPHROPATHY RISK FACTORS: Patient age > 60 years, Diabetic: Yes. Current medication(s): Insulin. Patient currently has insulin pump?: No., and Congestive Heart Failure (CHF) CREATININE: Creatinine Date Value Ref Range Status 05/22/2023 0.84 0.73 - 1.22 mg/dL Final 04/07/2023 1.02 0.73 - 1.22 mg/dL Final 04/06/2023 0.97 0.73 - 1.22 mg/dL Final Estimated Glomerular Filtration Rate Date Value Ref Range Status 05/22/2023 99 >=60 mL/min/1.73m Final Comment: Estimated Glomerular Filtration [...] Status 06/24/2020 >60 Final P.O.C.T. RESULTS: N/A June 27, 2023 TREATMENT: No Hydration needed. IV SITE: Ambulatory: A peripheral IV was started in the Left forearm with a Angio cath: 20 gauge. and A Saline lock was inserted per protocol IV SITE APPEARANCE: Clean,Dry and Intact SIGNATURE: Alexandra Suarez RN PATIENT NAME: Kiel Catherine DATE: June 27, 2023 TIME: 12:21 PM Radiology Service Progress Note PATIENT NAME: Kiel Catherine DATE OF SERVICE: June 27, 2023 TIME: 12:45 PM PATIENT IDENTITY VERIFICATION COMPLETED USING TWO [...] place to prevent falls during this visit? Offered Assistance with Transfers PATIENT GENDER DATA: Male PATIENT RELEVANT IMPLANT DATA REVIEWED: Yes PATIENT PRESENTS WITH AN IMPLANTABLE OR ATTACHED BEE FARMER: No RADIOLOGY DEPARTMENT: CT; Exam(s) Completed: CTA Chest PERIPHERAL IV DATA: Site assessment: Clean,Dry and Intact, Site disposition Discontinued SIGNED BY: RT Dionne(R) June 27, 2023 12:45 PM documented in this encounter [facility] 06-26-2023 Telephone encounter Note Left detailed message on identifiable voicemail. [facility] 06-26-2023 Miscellaneous Notes Left detailed message on identifiable voicemail. Rx sent for smaller amount. Attempt to wean down. If continues to need, needs to get back into pain management. Patient was released yesterday per his . Appointment scheduled for Hospital follow up. Scheduled with Angela. Is he still in the hospital? If so, will hold on refilling. Patient has been identified by name and date of : Pharmacy phones for refill(s): Requested Prescriptions Pending Prescriptions Disp Refills traMADol (ULTRAM) 50 mg tablet 120 tablet 0 Sig: Take 1 tablet by mouth every 6 hours as needed for pain for up to 30 days. Date of last office visit in primary care: 05/22/2023 Date of next office visit in primary care: None Please advise. Thank you. Apple Allen RN. documented in this encounter [facility] 06-26-2023 Telephone encounter Note Patient has scheduled CTA for tomorrow. Dr. Alcocer office was notified by CTA department that the patient did not have premedication ordered. Called local [facility] with Prednisone prescription using the messaging system. Called to let paitent know that this was called in. Rubén Carter RN [facility] 06-26-2023 Miscellaneous Notes Patient has scheduled CTA for tomorrow. Dr. Alcocer office was notified by CTA department that the patient did not have premedication ordered. Called local [facility] with Prednisone prescription using the messaging system. Called to let paitent know that this was called in. Rubén Carter RN documented in this encounter [facility] 06-26-2023 Telephone encounter Note Rx sent for smaller amount. Attempt to wean down. If continues to need, needs to get back into pain management. [facility] 06-26-2023 Telephone encounter Note Patient was released yesterday per his . Appointment scheduled for Hospital follow up. Scheduled with Angela. [facility] 06-26-2023 Telephone encounter Note Is he still in the hospital? If so, will hold on refilling. [facility] 06-26-2023 Telephone encounter Note Patient has been identified by name and date of : Pharmacy phones for refill(s): Requested Prescriptions Pending Prescriptions Disp Refills traMADol (ULTRAM) 50 mg tablet 120 tablet 0 Sig: Take 1 tablet by mouth every 6 hours as needed for pain for up to 30 days. Date of last office visit in primary care: 05/22/2023 Date of next office visit in primary care: None Please advise. Thank you. Apple Allen RN. [facility] 06-24-2023 Discharge summary Note Date/Time June 24, 2023 1:03p [facility] Medical Records Department [address] [place] [id number] Discharge Summary 06/24/23 1300 MR#: [id number] Acct: [id number] Name: KIEL CATHERINE Rep #:[id number] : 1960 62 From: Trip Fraire DO PCP: Dr. Alyson Arthur MD Status:ADM I N Location: [place] [address] Providers Date of Admission: 06/22/23 Primary Care Physician: Dr. Alyson Arthur MD Consultations 06/23/23 08:38 Consult: General Surgery Routine Consulting Provider: Raj Stevenson Reason for Consult: SBO EMERGENT Consult: No MD Notified: Yes Date Notified: 06/23/23 Time Notified: 08:38 Method of Notification: ED Physician Initiated Reason For Visit: SMALL BOWEL OBSTRUCTION Diagnosis Discharge Diagnosis (1) Small bowel obstruction: Status: Acute Code(s): K56.609 - Unspecified intestinal obstruction, unspecified as to partial versus complete obstruction (2) Morbid obesity: Status: Acute Code(s): E66.01 - Morbid (severe) obesity due to excess calories Plan Recurrent small bowel obstruction * Management per surgery continue NGT and NPO. * small bowel follow-through ordered and shows ongoing SBO. * NQSIP performed and patient as I had a higher risk for serious complication, any complication, readmission, return to the OR and discharged to nursing or rehab facility. These potential complication would be expected se given the patient's baseline performance status and comorbidities, however, patient is otherwise medically stable to proceed with surgery, if necessary. I do not feel additional cardiology consultation is necessary for clearance. * NGT removed. Diet advanced. Recent history of ascending aortic aneurysm repair and aortic valve replacement * Performed at [facility] 03/2023. Recent left MCA stroke * Residual deficits of significant right arm weakness, moderate right leg weakness and mild speech dysfunction. * PT/OT/case management consulted. ASA and statin. Chronic medical conditions: * Class III obesity?Complicates hospital course, care and prognosis. * Type 2 diabetes mellitus: Blood glucose 305 on admit. A1c 7.3%. Home regimen of Lantus 12 units daily with sliding-scale insulin as needed with meals. Will start Lantus 10 units daily with sliding scale insulin, adjust as needed. * GERD: Continue home PPI. * Chronic pain with neuropathy: Continue home Lyrica, IV morphine as needed on for SBO as noted above. * COPD: Stable, not in acute exacerbation. Continue home inhalers. * Hyperlipidemia: Continue home statin. * Insomnia: Continue home trazodone. DVT prophylaxis: SCDs CODE STATUS: Full code, verified Expected disposition: TBD Medications at Discharge Home Medications atorvastatin 10 mg tablet 10 mg PO QHS 11/03/16 budesonide-formoterol HFA 80 mcg-4.5 mcg/actuation aerosol inhaler 2 puff inhalation BID 10/30/20 pantoprazole 40 mg tablet,delayed release 40 mg PO DAILY 10/30/20 acetaminophen 500 mg tablet 1,000 mg PO TID PRN Pain 10/18/21 albuterol sulfate 90 mcg/actuation aerosol inhaler (Ventolin HFA) 1 - 2 puff inhalation Q4H PRN PRN Wheezing #8.5 grams 10/18/21 insulin aspart U-100 100 unit/mL (3 mL) subcutaneous pen (Novolog FlexPen U-100 Insulin aspart) 2 unit subcut TID 10/14/22 insulin glargine 100 unit/mL (3 mL) subcutaneous pen 12 unit subcut .QAM 10/14/22 pregabalin 100 mg capsule (Lyrica) 100 mg PO DAILY NEUROPATHY 10/14/22 amlodipine 5 mg tablet 5 mg PO DAILY 06/22/23 apixaban 5 mg tablet (Eliquis) 5 mg PO BID 06/22/23 aspirin 81 mg tablet,delayed release (Adult Aspirin Regimen) 81 mg PO DAILY 06/22/23 bumetanide 1 mg tablet 2 mg PO BID 06/22/23 docusate sodium 100 mg capsule (Col-Rite) 100 mg PO DAILY PRN constipation 06/22/23 metoprolol tartrate 25 mg tablet 37.5 mg PO Q12H 06/22/23 oxsriure-jk-hwgdh 300 mcg-K 60 mcg-lycop 600 mcg-lutein 300 mcg tablet (Centrum Silver Men) 1 tab PO DAILY 06/22/23 ondansetron HCl 4 mg tablet 4 mg PO Q8H PRN PRN nausea and vomiting 06/22/23 pregabalin 200 mg capsule 200 mg PO DAILY 06/22/23 tramadol 50 mg tablet 50 mg PO Q6H PRN 06/22/23 trazodone 50 mg tablet 50 mg PO QHS 06/22/23 calcium carbonate 500 mg (2.5 x 200 mg calcium (500 mg)) PO Q6H PRN PRN HEARTBURN #0 tabs 06/24/23 Hospital Course Operations None Procedures None Summary of Care Provided Minutes Spent on Discharge: 32 Hospital Course: Patient has small bowel traction. NG tube was placed. Small bowel obstruction ventral resolved NG tube was discontinued and diet was advanced. Type patient tolerated the diet. Patient be discharged home. Weight / BMI Weight Weight: 110.3 kg Body Mass Index (BMI) 47.5 ABG / Lab / Microbiology Data 06/24/23 06:15 06/24/23 06:15 Laboratory: Laboratory Results - last 24 hr 06/23/23 17:48: POC Glucose 181 H 06/23/23 23:38: POC Glucose 150 H 06/24/23 05:32: POC Glucose 164 H 06/24/23 06:15: WBC 6.0, RBC 4.37 L, Hgb 12.6 L, Hct 39.3 L, MCV 89.9, MCH 28.8,MCHC 32.1, RDW Std Deviation 46.9 H, RDW Coeff of David 14.3, Plt Count 227, MPV 10.9, Immature Gran % (Auto) 0.200, Neut % (Auto) 61.5, Lymph % (Auto) 24.7, [place] % (Auto) 11.6 H, Eos % (Auto) 1.2, Baso % (Auto) 0.8, Absolute Neuts (auto)3.7, Absolute Lymphs (auto) 1.49, Nucleated RBC % 0, Sodium 137, Potassium 2.8 L, Chloride 101, Carbon Dioxide 29.0, Anion Gap 7, BUN 24 H, Creatinine 0.84, Estim Creat Clear Calc 104.03, Est GFR (MDRD) Af Amer 120, Est GFR (MDRD) Non-Af99, BUN/Creatinine Ratio 28.6 H, Glucose 169 H, Calcium 8.7 06/24/23 11:15: POC Glucose 235 H Radiography Diagnostic Testing: Radiology Impression Small Bowel X-Ray 06/23/23 09:15 IMPRESSION: Findings are suggestive of partial small bowel obstruction. The colon is filled with 2 hours following the introduction of Gastrografin. Electronically Signed: Suresh Gomez MD at 13:40 EDT , KUB X-Ray 06/24/23 05:00 IMPRESSION: No bowel obstruction. Residual contrast in the colon with decreased small bowel dilatation. Electronically Signed: Marlene Singletary MD at 8:06 EDT , D/C Instructions Discharge Diet: 2000 Calorie Control Diet (bland, advance as tolerated.) Meaningful Use Info Meaningful Use Meaningful Use Diagnoses (Choose all that apply): None applicable Ischemic Stroke Statin Dosing Therapy Reference: STATIN DOSE THERAPY REFERENCE: * Patients > 75 years receive moderate or high dose statin therapy. * Patients 75 years or YOUNGER should receive HIGH intensity statin dose unless contraindicated. You will be required to document reason for non-treatment if statin daily dose does not meet guidelines. HIGH DOSE STATIN THERAPY DAILY Atorvastatin > than or = to 40 mg Rosuvastatin > than or = to 20 mg Amlodipine + Atorvastatin > than or = to 2.5/40 mg Ezetimibe + Simvastatin 10/80 mg Simvastatin 80mg Discharge Plan Admission Admit Date/Time: 06/22/23 17:23 Primary Reason for Your Visit: Small bowel obstruction Attending Provider: Trip Fraire Primary Care Provider: Alyson Arthur Consulting Providers: Patrick Sharma; Raj Stevenson Discharge Orders/Prescriptions Prescriptions: New calcium carbonate 200 mg calcium (500 mg) Tablet,Chewable 500 mg PO Q6H PRN PRN (Reason: HEARTBURN) Qty: 0 0RF Continued insulin glargine 100 unit/mL (3 mL) insulin pen 12 unit subcut .QAM pregabalin [Lyrica] 100 mg capsule 100 mg PO DAILY atorvastatin 10 MG tablet 10 mg PO QHS budesonide-formoterol 80-4.5 mcg/actuation Hfa Aerosol Inhaler 2 puff INHALATION BID pantoprazole 40 mg Tablet,Delayed Release (Dr/Ec) 40 mg PO DAILY insulin aspart U-100 [Novolog FlexPen U-100 Insulin] 100 unit/mL (3 mL) insulin pen 2 unit SUBCUT TID Rx Instructions: 2 units per every 50 after 200 BG acetaminophen 500 MG tablet 1,000 mg PO TID PRN (Reason: Pain) albuterol sulfate [Ventolin HFA] 90 mcg/actuation HFA aerosol inhaler 1 - 2 puff inhalation Q4H PRN PRN (Reason: Wheezing) Qty: 8.5 0RF amlodipine 5 mg tablet 5 mg PO DAILY tramadol 50 mg tablet 50 mg PO Q6H PRN bumetanide 1 mg tablet 2 mg PO BID metoprolol tartrate 25 mg tablet 37.5 mg PO Q12H pregabalin 200 mg capsule 200 mg PO DAILY Eliquis 5 mg tablet 5 mg PO BID trazodone 50 mg tablet 50 mg PO QHS ondansetron HCl 4 mg tablet 4 mg PO Q8H PRN PRN (Reason: nausea and vomiting) aspirin [Adult Aspirin Regimen] 81 mg tablet,delayed release (DR/EC) 81 mg PO DAILY docusate sodium [Col-Rite] 100 mg capsule 100 mg PO DAILY PRN (Reason: constipation) Centrum Silver Men [id number] mcg tablet 1 tab PO DAILY Referrals / Follow Up: Alyson Arthur MD [Primary Care Provider] - Within 2 Weeks Disposition Disposition (needs filled in before D/C Order can be placed): Home, Self Care Charges/Coding Visit Charges Inpatient E&M: 97048 Disch Hosp 06/24/23 1307 <Electronically signed by Trip Fraire DO> Cosigner Signature (if applicable): CC: Dr. Trip Fraire DO; Dr. Alyson Arthur MD~ [facility] Work Phone: 1(491) 254-612205-11-2024 Progress note Author Trip Fraire [facility] June 24, 2023 11:34am Note Date/Time June 24, 2023 7:56a m [facility] Medical Records Department [address] [place] [address] Progress Note - Hospitalist 06/24/23 0756 MR#: [id number] Acct: [id number] Name: KIEL CATHERINE Rep #:[id number] : 1960 62 From: Trip Fraire DO PCP: Dr. Alyson Arthur MD Status:ADM I N Location: [place] [address] Reason for Visit Reason for Visit: Diagnoses Morbid (severe) obesity due to excess calories (06/22/23) Unspecified intestinal obstruction, unspecified as to partial versus complete obstruction (06/22/23) Subjective Subjective Feeling better. NGT removed. Objective Data Objective Data Vital Signs: Vital Signs Temp Pulse Resp BP Pulse Ox O2 Del Method O2 Flow Rate 36.3 C L 103 H 16 119/58 L 92 Room Air 1 06/24/23 05:21 06/24/23 06:56 06/24/23 06:56 06/24/23 05:21 06/24/23 06:56 06/24/23 06:56 06/23/23 12:10 Oxygen Flow Rate (L/min) 1 Oxygen Delivery Method Room Air Weight: 110.3 kg Body Mass Index (BMI) 47.5 Intake & Output: Intake and Output for Last 24 Hours 06/22/23 06/23/23 06/24/23 23:59 23:59 23:59 Intake Total 1880.00 / 1880.00 Output Total 2150 / 2150 Balance -270.00 / -270.00 Lab / Micro Data 06/24/23 06:15 06/24/23 06:15 Labs: Laboratory Results - last 24 hr 06/23/23 06:29: POC Glucose 192 H 06/23/23 11:25: POC Glucose 229 H 06/23/23 17:48: POC Glucose 181 H 06/23/23 23:38: POC Glucose 150 H 06/24/23 05:32: POC Glucose 164 H Radiography Diagnostic Testing: Radiology Impression Small Bowel X-Ray 06/23/23 09:15 IMPRESSION: Findings are suggestive of partial small bowel obstruction. The colon is filled with 2 hours following the introduction of Gastrografin. Electronically Signed: Suresh Gomez MD at 13:40 EDT , Physical Exam Const alert and no apparent distress HEENT head/scalp atraumatic and moist oral mucous membranes Resp normal respiratory effort and no retractions Cardio regular rate and regular rhythm Assessment & Plan Assessment/Plan (1) Small bowel obstruction: (2) Morbid obesity: PLAN: Plan Recurrent small bowel obstruction * Management per surgery continue NGT and NPO. * small bowel follow-through ordered and shows ongoing SBO. * NQSIP performed and patient as I had a higher risk for serious complication, any complication, readmission, return to the OR and discharged to nursing or rehab facility. These potential complication would be expected se given the patient's baseline performance status and comorbidities, however, patient is otherwise medically stable to proceed with surgery, if necessary. I do not feel additional cardiology consultation is necessary for clearance. * NGT removed. Diet advanced. Recent history of ascending aortic aneurysm repair and aortic valve replacement * Performed at [facility] 03/2023. Recent left MCA stroke * Residual deficits of significant right arm weakness, moderate right leg weakness and mild speech dysfunction. * PT/OT/case management consulted. ASA and statin. Chronic medical conditions: * Class III obesity?Complicates hospital course, care and prognosis. * Type 2 diabetes mellitus: Blood glucose 305 on admit. A1c 7.3%. Home regimen of Lantus 12 units daily with sliding-scale insulin as needed with meals. Will start Lantus 10 units daily with sliding scale insulin, adjust as needed. * GERD: Continue home PPI. * Chronic pain with neuropathy: Continue home Lyrica, IV morphine as needed on for SBO as noted above. * COPD: Stable, not in acute exacerbation. Continue home inhalers. * Hyperlipidemia: Continue home statin. * Insomnia: Continue home trazodone. DVT prophylaxis: SCDs CODE STATUS: Full code, verified Expected disposition: TBD Charges/Coding Visit Charges Inpatient E&M: 73920 Subs Hosp L2 06/24/23 1134 <Electronically signed by Trip Fraire DO> Cosigner Signature (if applicable): CC: ~ [facility]igned [facility] Work Phone: 1(562) 261-156205-11-2024 Progress note Author Kiel [facility] June 24, 2023 11:09am Note Date/Time June 24, 2023 10:04 am [facility] Medical Records Department [address] [place] [address] Progress Note - Surgery 06/24/23 1003 MR#: [id number] Acct: [id number] Name: JANKIALONSOKIEL Godoy Rep #:[id number] : 1960 62 From: Kiel Tony PCP: Dr. Alyson Arthur MD Status:ADM I N Location: [place] [address] Subjective Subjective Patient seen and examined during AM rounds. He is found on the edge of his bed with help nearby as he is making his way to the bedside commode. He shares thathe has had a number of loose bowel movements. He denies any nausea with his liquid diet. Objective Data Objective Data Vital Signs: Vital Signs Temp Pulse Resp BP Pulse Ox O2 Del Method O2 Flow Rate 97.3 F L 99 18 109/56 L 93 Nasal Cannula 2 06/24/23 09:05 06/24/23 09:05 06/24/23 09:05 06/24/23 09:05 06/24/23 09:05 06/24/23 09:05 06/24/23 09:05 Oxygen Flow Rate (L/min) 2 Oxygen Delivery Method Nasal Cannula Weight: 243 lb 2.718 oz Body Mass Index (BMI) 47.5 Intake & Output: Intake and Output for Last 24 Hours 06/22/23 06/23/23 06/24/23 23:59 23:59 23:59 Intake Total 1880.00 / 1880.00 Output Total 2150 / 2150 Balance -270.00 / -270.00 Lab / Micro Data 06/24/23 06:15 06/24/23 06:15 Labs: Laboratory Results - last 24 hr 06/23/23 11:25: POC Glucose 229 H 06/23/23 17:48: POC Glucose 181 H 06/23/23 23:38: POC Glucose 150 H 06/24/23 05:32: POC Glucose 164 H 06/24/23 06:15: WBC 6.0, RBC 4.37 L, Hgb 12.6 L, Hct 39.3 L, MCV 89.9, MCH 28.8,MCHC 32.1, RDW Std Deviation 46.9 H, RDW Coeff of David 14.3, Plt Count 227, MPV 10.9, Immature Gran % (Auto) 0.200, Neut % (Auto) 61.5, Lymph % (Auto) 24.7, [place] % (Auto) 11.6 H, Eos % (Auto) 1.2, Baso % (Auto) 0.8, Absolute Neuts (auto)3.7, Absolute Lymphs (auto) 1.49, Nucleated RBC % 0, Sodium 137, Potassium 2.8 L, Chloride 101, Carbon Dioxide 29.0, Anion Gap 7, BUN 24 H, Creatinine 0.84, Estim Creat Clear Calc 104.03, Est GFR (MDRD) Af Amer 120, Est GFR (MDRD) Non-Af99, BUN/Creatinine Ratio 28.6 H, Glucose 169 H, Calcium 8.7 Radiography Diagnostic Testing: Radiology Impression Small Bowel X-Ray 06/23/23 09:15 IMPRESSION: Findings are suggestive of partial small bowel obstruction. The colon is filled with 2 hours following the introduction of [employer]. Electronically Signed: Suresh Gomez MD at 13:40 EDT , KUB X-Ray 06/24/23 05:00 IMPRESSION: No bowel obstruction. Residual contrast in the colon with decreased small bowel dilatation. Electronically Signed: Marlene Singletary MD at 8:06 EDT Reading Location ID and State: [facility] / [place] Tel , Service support , Physical Exam Const oriented x3 Constitutional Narrative: In mild distress due to feelings of needing to have a bowel movement imminently Resp normal respiratory effort GI GI Narrative: Obese, mildly distended, soft, nontender to palpation x 4 quadrants Assessment & Plan Assessment/Plan (1) Small bowel obstruction: PLAN: Patient has CT scan 2 days ago that showed small bowel obstruction. Yesterday he completed a small bowel follow-through with normal transit time andhis KUB this morning shows no evidence of obstruction. He reports that he tolerated advanced to a liquid diet without issue. He is having ongoing bowel function. Recommend further advancement of his diet and if tolerated he is cleared for discharge from a surgical standpoint. Kiel Chacon MD General Surgery Endocrine Surgery Pager: [facility] [address] [place] [address], [address] [place] [address] Office: [phone] 06/24/23 1107 <Electronically signed by Kiel Chacon MD> Cosigner Signature (if applicable): CC: ~ Signed [facility] Work Phone: 1(368) 431-797905-10-2024 Progress note Author Trip Fraire [facility] June 23, 2023 3:30pm Note Date/Time June 23, 2023 8:45a m [facility] Medical Records Department [address] [place] [address] Progress Note - Hospitalist 06/23/23 0836 MR#: [id number] Acct: [id number] Name: KIEL CATHERINE Rep #:[id number] : 1960 62 From: Trip Fraire DO PCP: Dr. Alyson Arthur MD Status:ADM I N Location: [place] [address] Reason for Visit Reason for Visit: Diagnoses Morbid (severe) obesity due to excess calories (06/22/23) Unspecified intestinal obstruction, unspecified as to partial versus complete obstruction (06/22/23) Objective Data Objective Data Vital Signs: Vital Signs Temp Pulse Resp BP Pulse Ox O2 Del Method O2 Flow Rate 36.1 C L 83 14 136/63 H 94 Nasal Cannula 2 06/23/23 03:10 06/23/23 03:10 06/23/23 03:10 06/23/23 03:10 06/23/23 03:10 06/23/23 04:13 06/23/23 04:13 Oxygen Flow Rate (L/min) 2 Oxygen Delivery Method Nasal Cannula Weight: 110.3 kg Body Mass Index (BMI) 47.5 Intake & Output: Intake and Output for Last 24 Hours 06/21/23 06/22/23 06/23/23 23:59 23:59 23:59 Intake Total 0 / 0 Output Total 1400 / 1400 Balance -1400 / -1400 Lab / Micro Data 06/23/23 03:55 06/23/23 03:55 Labs: Laboratory Results - last 24 hr 06/22/23 14:42: WBC 12.8 H, RBC 5.50, Hgb 16.0, Hct 47.8, MCV 86.9, MCH 29.1, MCHC 33.5, RDW Std Deviation 45.3 H, RDW Coeff of David 14.2, Plt Count 352, MPV 10.9, Immature Gran % (Auto) 0.400, Neut % (Auto) 77.0 H, Lymph % (Auto) 12.5 L,[place] % (Auto) 9.6, Eos % (Auto) 0.1, Baso % (Auto) 0.4, Absolute Neuts (auto) 9.9 H, Absolute Lymphs (auto) 1.61, Nucleated RBC % 0, Sodium 136, Potassium 3.6, Chloride 97 L, Carbon Dioxide 28.0, Anion Gap 11, BUN 30 H, Creatinine 1.25, Estim Creat Clear Calc 67.87, Est GFR (MDRD) Af Amer 75, Est GFR (MDRD) Non-Af 62, BUN/Creatinine Ratio 24.0 H, Glucose 305 H, Hemoglobin A1c 7.3 H, Calcium 9.5, Total Bilirubin 0.50, Direct Bilirubin 0.20, AST 16, ALT 14 L, Alkaline Phosphatase 129 H, Total Protein 7.4, Albumin 2.9 L, Globulin 4.5 H, Lipase 11 L 06/22/23 14:58: Urine Color Yellow, Urine Clarity Clear, Urine pH 5.0, Ur Specific [place] 1.025, Urine Protein 30 H, Urine Glucose (UA) Normal, Urine Ketones 5 H, Urine Occult Blood Negative, Urine Nitrite Negative, Urine Bilirubin 3 H, Urine Urobilinogen 1 H, Ur Leukocyte Esterase Negative, Urine RBC0-5 SEEN, Urine WBC 0-5 SEEN, Ur Squamous Epith Cells 0-5 SEEN, Urine Bacteria 1+, Hyaline Casts 0-5 SEEN, Urine Mucus 0 SEEN 06/22/23 18:47: POC Glucose 244 H 06/22/23 22:56: POC Glucose 207 H 06/23/23 03:55: WBC 7.6, RBC 4.85, Hgb 14.1, Hct 43.3, MCV 89.3, MCH 29.1, MCHC 32.6, RDW Std Deviation 46.7 H, RDW Coeff of David 14.5, Plt Count 298, MPV 11.0, Sodium 141, Potassium 2.9 L, Chloride 102, Carbon Dioxide 30.0, Anion Gap 9, BUN32 H, Creatinine 1.00, Estim Creat Clear Calc 81.33, Est GFR (MDRD) Af Amer 98, Est GFR (MDRD) Non-Af 81, BUN/Creatinine Ratio 32.0 H, Glucose 181 H, Calcium 8.9 06/23/23 06:29: POC Glucose 192 H Radiography Diagnostic Testing: Radiology Impression Abdomen/Pelvis CT 06/22/23 14:20 IMPRESSION: Small bowel obstruction with question of early ischemic change. Electronically Signed: Ronan Awan MD at 15:35 EDT , ADDENDUM: 06/22/23 1544 IMPRESSION: Small bowel obstruction with question of early ischemic change. N.B. : The above Results were Read Back by Ronan Awan MD to Carmen Matthews MD, and understanding confirmed on 06/22/2023 15:37:25 (ET). Electronically Signed: Ronan Awan MD at 15:35 EDT , KUB X-Ray 06/22/23 18:00 IMPRESSION: Nasogastric tube with the distal tip in the proximal to mid stomach. Electronically Signed: Angel Flores MD at 18:37 EDT , KUB X-Ray 06/23/23 05:55 IMPRESSION: Enteric tube in the stomach. Dilated loops of small bowel redemonstrated. Electronically Signed: Kassidy Howard MD at 5:24 EDT , Assessment & Plan Assessment/Plan (1) Small bowel obstruction: (2) Morbid obesity: PLAN: Plan Recurrent small bowel obstruction * Management per surgery continue NGT and NPO. * small bowel follow-through ordered and shows ongoing SBO. * NQSIP performed and patient as I had a higher risk for serious complication, any complication, readmission, return to the OR and discharged to nursing or rehab facility. These potential complication would be expected se given the patient's baseline performance status and comorbidities, however, patient is otherwise medically stable to proceed with surgery, if necessary. I do not feel additional cardiology consultation is necessary for clearance. Recent history of ascending aortic aneurysm repair and aortic valve replacement * Performed at [facility] 03/2023. Recent left MCA stroke * Residual deficits of significant right arm weakness, moderate right leg weakness and mild speech dysfunction. * PT/OT/case management consulted. ASA and statin. Chronic medical conditions: * Class III obesity?Complicates hospital course, care and prognosis. * Type 2 diabetes mellitus: Blood glucose 305 on admit. A1c 7.3%. Home regimen of Lantus 12 units daily with sliding-scale insulin as needed with meals. Will start Lantus 10 units daily with sliding scale insulin, adjust as needed. * GERD: Continue home PPI. * Chronic pain with neuropathy: Continue home Lyrica, IV morphine as needed on for SBO as noted above. * COPD: Stable, not in acute exacerbation. Continue home inhalers. * Hyperlipidemia: Continue home statin. * Insomnia: Continue home trazodone. DVT prophylaxis: SCDs CODE STATUS: Full code, verified Expected disposition: TBD Charges/Coding Visit Charges Inpatient E&M: 43920 Subs Hosp L2 06/23/23 1530 <Electronically signed by Trip Fraire DO> Cosigner Signature (if applicable): CC: ~ Signed [facility] Work Phone: 1(841) 363-696905-10-2024 Progress note Author Raj Stevenson [facility] June 23, 2023 8:32am Note Date/Time June 23, 2023 8:33a m [facility] Medical Records Department [address] [place] [address] Progress Note - Surgery 06/23/2332 MR#: [id number] Acct: [id number] Name: KIEL CATHERINE Rep #:[id number] : 1960 62 From: Raj márquez MD PCP: Dr. Alyson Arthur MD Status:ADM I N Location: [place] [address] Subjective Subjective Patient reports he is feeling better this morning. He is passing flatus and nothaving any abdominal pain. He denies nausea or vomiting. Objective Data Objective Data Vital Signs: Vital Signs Temp Pulse Resp BP Pulse Ox O2 Del Method O2 Flow Rate 96.9 F L 83 14 136/63 H 94 Nasal Cannula 2 06/23/23 03:10 06/23/23 03:10 06/23/23 03:10 06/23/23 03:10 06/23/23 03:10 06/23/23 04:13 06/23/23 04:13 Oxygen Flow Rate (L/min) 2 Oxygen Delivery Method Nasal Cannula Weight: 243 lb 2.718 oz Body Mass Index (BMI) 47.5 Intake & Output: Intake and Output for Last 24 Hours 06/21/23 06/22/23 06/23/23 23:59 23:59 23:59 Intake Total 0 / 0 Output Total 1400 / 1400 Balance -1400 / -1400 Lab / Micro Data 06/23/23 03:55 06/23/23 03:55 Labs: Laboratory Results - last 24 hr 06/22/23 14:42: WBC 12.8 H, RBC 5.50, Hgb 16.0, Hct 47.8, MCV 86.9, MCH 29.1, MCHC 33.5, RDW Std Deviation 45.3 H, RDW Coeff of David 14.2, Plt Count 352, MPV 10.9, Immature Gran % (Auto) 0.400, Neut % (Auto) 77.0 H, Lymph % (Auto) 12.5 L,[place] % (Auto) 9.6, Eos % (Auto) 0.1, Baso % (Auto) 0.4, Absolute Neuts (auto) 9.9 H, Absolute Lymphs (auto) 1.61, Nucleated RBC % 0, Sodium 136, Potassium 3.6, Chloride 97 L, Carbon Dioxide 28.0, Anion Gap 11, BUN 30 H, Creatinine 1.25, Estim Creat Clear Calc 67.87, Est GFR (MDRD) Af Amer 75, Est GFR (MDRD) Non-Af 62, BUN/Creatinine Ratio 24.0 H, Glucose 305 H, Hemoglobin A1c 7.3 H, Calcium 9.5, Total Bilirubin 0.50, Direct Bilirubin 0.20, AST 16, ALT 14 L, Alkaline Phosphatase 129 H, Total Protein 7.4, Albumin 2.9 L, Globulin 4.5 H, Lipase 11 L 06/22/23 14:58: Urine Color Yellow, Urine Clarity Clear, Urine pH 5.0, Ur Specific [place] 1.025, Urine Protein 30 H, Urine Glucose (UA) Normal, Urine Ketones 5 H, Urine Occult Blood Negative, Urine Nitrite Negative, Urine Bilirubin3 H, Urine Urobilinogen 1 H, Ur Leukocyte Esterase Negative, Urine RBC 0-5 SEEN,Urine WBC 0-5 SEEN, Ur Squamous Epith Cells 0-5 SEEN, Urine Bacteria 1+, HyalineCasts 0-5 SEEN, Urine Mucus 0 SEEN 06/22/23 18:47: POC Glucose 244 H 06/22/23 22:56: POC Glucose 207 H 06/23/23 03:55: WBC 7.6, RBC 4.85, Hgb 14.1, Hct 43.3, MCV 89.3, MCH 29.1, MCHC 32.6, RDW Std Deviation 46.7 H, RDW Coeff of David 14.5, Plt Count 298, MPV 11.0, Sodium 141, Potassium 2.9 L, Chloride 102, Carbon Dioxide 30.0, Anion Gap 9, BUN32 H, Creatinine 1.00, Estim Creat Clear Calc 81.33, Est GFR (MDRD) Af Amer 98, Est GFR (MDRD) Non-Af 81, BUN/Creatinine Ratio 32.0 H, Glucose 181 H, Calcium 8.9 06/23/23 06:29: POC Glucose 192 H Radiography Diagnostic Testing: Radiology Impression Abdomen/Pelvis CT 06/22/23 14:20 IMPRESSION: Small bowel obstruction with question of early ischemic change. Electronically Signed: Ronan Awan MD at 15:35 EDT , ADDENDUM: 06/22/23 1544 IMPRESSION: Small bowel obstruction with question of early ischemic change. N.B. : The above Results were Read Back by Ronan Awan MD to Carmen Matthews MD, and understanding confirmed on 06/22/2023 15:37:25 (ET). Electronically Signed: Ronan Awan MD at 15:35 EDT , KUB X-Ray 06/22/23 18:00 IMPRESSION: Nasogastric tube with the distal tip in the proximal to mid stomach. Electronically Signed: Angel Flores MD at 18:37 EDT , KUB X-Ray 06/23/23 05:55 IMPRESSION: Enteric tube in the stomach. Dilated loops of small bowel redemonstrated. Electronically Signed: Kassidy Howard MD at 5:24 EDT , Physical Exam Const oriented x3 and no apparent distress Resp normal respiratory effort GI soft to palpation and non-tender Assessment & Plan Assessment/Plan (1) Small bowel obstruction: PLAN: Patient has CT scan yesterday that showed small bowel obstruction. Today he is feeling much better and not having pain. I will order a small bowel follow- through to confirm that things are making it through before starting a diet and removing NG. If things do not move forward I will discuss with him surgical options. Raj Stevenson MD Pager: [facility] [address] [place] [address], [address] [place] [address] Office: 06/23/23 0832 <Electronically signed by Raj Stevenson MD> Cosigner Signature (if applicable): CC: ~ Signed [facility] Work Phone: [phone]) 622-232305-10-2024 History and physical note Author Patrick Sharma [facility] June 23, 2023 12:25am Note Date/Time June 22, 2023 4:28pm [facility] Medical Records Department [address] [place] [address] H&P Exam - Hospitalist 06/22/23 1628 MR#: [id number] Acct: [id number] Name: KIEL CATHERINE Rep #:[id number] : 1960 62 From: Patrick melo DO PCP: Dr. Alyson Arthur MD Status:ADM I N Location: [place] [address] HPI - General General Date of Admission: 06/22/23 Date of Service: 06/22/23 Chief Complaint: Abdominal pain HPI Narrative KIEL CATHERINE, is a 62 M who [facility]. [address] abdomen pelvis revealed a small bowel obstruction with questionable early ischemic changes. I saw patient at the bedside in the ED. Patient's daughter was previously at the bedside but wasnot there when I saw the patient. Patient was sitting up in bed, appeared fatigued but was making appropriate eye contact and answering questions appropriately. Patient has a complex medical history; further information was obtained through [facility] records. Most recently the patient underwent an openascending aortic aneurysm repair with aortic valve replacement at the [facility] in March. Unfortunately that procedure was complicated by a left MCA stroke. Patient continues to have residual right-sided deficits including significant weakness in his right arm, moderate weakness in his right leg and some difficulty with speech. He is able to communicate mostly normally but has some slowing of his speech. Patient apparently has a history of multiple partial small bowel obstructions since that hospitalization in March, though I was unable to find these records. He has never required a procedure for theseobstructions. Has had no previous intra-abdominal surgeries so it is unclear asto what may be the nidus for these obstructions. He did need to have an NG tubeplaced for 1 of those surgeries per daughter's report to the ED physician. WhenI saw him, patient noted that ED staff had tried to place an NG tube for him about 15 to 20 minutes prior but they were unable to get the NG tube down. The patient apparently has had some sort of nasal surgery done in the past which makes NG tube placement difficult. States he did have a small bowel movement earlier, and patient's ED nurse noted that he had a small liquid bowel movement with very little substance. Patient did not appear to be in any acute pain or discomfort when I saw him. I was able to press on his belly on exam and abdomenwas fairly soft and nontender to palpation, with no guarding or rebound tenderness noted. Patient denied any fevers or chills. Denied any chest pain orshortness of breath. Vitals in ED notable for borderline sinus tachycardia, otherwise normotensive, afebrile and satting well on room air. WBC count 12.8, hemoglobin 16 (at baseline), platelets 352. BMP with creatinine 1.25 (mildly elevated from baseline), glucose 305, otherwise benign. LFTs fairly benign. UA unremarkable. CT abdomen pelvis as noted above. Will admit for further management. [facility] Medical History Anxiety Asthma Atherosclerotic heart disease of [place] coronary artery without angina pectoris Atrial septal defect and mitral stenosis Bicuspid aortic valve Bipolar 1 disorder Carpal tunnel syndrome, bilateral Chronic pain COPD (chronic obstructive pulmonary disease) CPAP (continuous positive airway pressure) dependence Degenerative disc disease Diabetic neuropathy Essential (primary) hypertension GERD (gastroesophageal reflux disease) Hearing loss, left HLD (hyperlipidemia) Leaky heart valve LVH (left ventricular hypertrophy) Morbid obesity MANISH (obstructive sleep apnea) Pancreatitis Smoker Type II diabetes mellitus Home Medications atorvastatin 10 mg tablet 10 mg PO QHS 11/03/16 [History Last Taken 06/21/23] budesonide-formoterol HFA 80 mcg-4.5 mcg/actuation aerosol inhaler 2 puff inhalation BID 10/30/20 [History Last Taken 06/22/23] pantoprazole 40 mg tablet,delayed release 40 mg PO DAILY 10/30/20 [History Last Taken 06/22/23] acetaminophen 500 mg tablet 1,000 mg PO TID PRN Pain 10/18/21 [History Last Taken Unknown] albuterol sulfate 90 mcg/actuation aerosol inhaler (Ventolin HFA) 1 - 2 puff inhalation Q4H PRN PRN Wheezing #8.5 grams 10/18/21 [Rx Last Taken Unknown] insulin aspart U-100 100 unit/mL (3 mL) subcutaneous pen (Novolog FlexPen U-100 Insulin aspart) 2 unit subcut TID 10/14/22 [History Last Taken 06/22/23] insulin glargine 100 unit/mL (3 mL) subcutaneous pen 12 unit subcut .QAM 10/14/22 [History Last Taken 06/22/23] pregabalin 100 mg capsule (Lyrica) 100 mg PO DAILY NEUROPATHY 10/14/22 [History Last Taken 06/22/23] amlodipine 5 mg tablet 5 mg PO DAILY 06/22/23 [History Last Taken 06/22/23] apixaban 5 mg tablet (Eliquis) 5 mg PO BID 06/22/23 [History Last Taken 06/22/23] aspirin 81 mg tablet,delayed release (Adult Aspirin Regimen) 81 mg PO DAILY 06/22/23 [History Last Taken 06/22/23] bumetanide 1 mg tablet 2 mg PO BID 06/22/23 [History Last Taken 06/22/23] docusate sodium 100 mg capsule (Col-Rite) 100 mg PO DAILY PRN constipation 06/22/23 [History Last Taken Unknown] metoprolol tartrate 25 mg tablet 37.5 mg PO Q12H 06/22/23 [History Last Taken 06/22/23] wvslithg-fp-tzbwv 300 mcg-K 60 mcg-lycop 600 mcg-lutein 300 mcg tablet (Centrum Silver Men) 1 tab PO DAILY 06/22/23 [History Last Taken 06/22/23] ondansetron HCl 4 mg tablet 4 mg PO Q8H PRN PRN nausea and vomiting 06/22/23 [History Last Taken 06/22/23] pregabalin 200 mg capsule 200 mg PO DAILY 06/22/23 [History Last Taken 06/22/23] tramadol 50 mg tablet 50 mg PO Q6H PRN 06/22/23 [History Last Taken 06/22/23] trazodone 50 mg tablet 50 mg PO QHS 06/22/23 [History Last Taken 06/21/23] Allergy/AdvReac Type Severity Reaction Status Date / Time Penicillins Allergy Hives Verified 06/22/23 14:08 fluticasone [From Flonase] AdvReac Severe Nose Bleeds Verified 06/22/23 14:08 lisinopril AdvReac Intermediate Upset Verified 06/22/23 14:08 Stomach NASAL SPRAY AdvReac Intermediate Chest Uncoded 10/09/22 14:22 tightness Family History Father Diabetes Dementia Mother CAD (coronary artery disease) CABG X4 Sister Diabetes Brother Ischemic heart disease Brother Myocardial infarction Surgical History History of back surgery Social History (Updated 06/22/23 @ 20:25 by Veronique Diez) household members: spouse housing: house Smoking Status: Current every day smoker tobacco type: cigarettes Tobacco: How many years used: 45 alcohol intake: current alcohol intake frequency: holidays/special occasions only substance use type: does not use ROS Constitutional Constitutional: Denies chills, fatigue, fever(s) or weakness Cardiovascular Cardiovascular: Denies chest pain Respiratory/Chest Respiratory/Chest: Denies shortness of breath at rest Gastrointestinal Gastrointestinal: Reports abdominal pain, diarrhea and nausea; Denies constipation or vomiting Genitourinary Genitourinary: Denies dysuria Musculoskeletal Musculoskeletal: Denies back pain Neurologic Neurologic: Denies dizziness, focal weakness or headache(s) Vital Signs Vital Signs Vital Signs: 06/22/23 14:08 Temperature 97.5 F L Temperature Source Temporal Pulse Rate 102 H Respiratory Rate 18 Blood Pressure 111/94 H Blood Pressure Mean 99 Pulse Ox 92 Oxygen Delivery Method Room Air Weight Weight: 111.4 kg Body Mass Index (BMI) 44.9 Physical Exam Const alert and no apparent distress Constitutional Narrative: Middle-age male, appears older than stated age, morbidly obese, sitting up in bed fairly comfortably, answering questions appropriately with mild speech deficits due to previous stroke, otherwise in no acute distress. General Appearance: cooperative HEENT normocephalic, head/scalp atraumatic, hearing grossly normal bilaterally and nasal mucous membranes and turbinates normal Eyes PERRL, EOMs intact bilaterally and conjunctivae normal Neck full ROM Chest inspection of chest normal Resp normal respiratory effort, normal air movement, no use of accessory muscles and clear to auscultation bilaterally Cardio regular rate, regular rhythm, no murmurs and peripheral pulses 2+ throughout GI GI Narrative: Mild distention noted. Otherwise soft and nontender to palpation. Back/Spine normal ROM Extremity normal to inspection and no pedal edema Skin no rashes or lesions noted Neuro Neuro Narrative: Significant right arm weakness, moderate right leg weakness, mild difficulty with speech (all known) due to previous stroke. Psych mental status grossly normal Results Lab / Micro Data 06/22/23 14:42 06/22/23 14:42 Labs: Laboratory Results - last 24 hr 06/22/23 14:42: WBC 12.8 H, RBC 5.50, Hgb 16.0, Hct 47.8, MCV 86.9, MCH 29.1, MCHC 33.5, RDW Std Deviation 45.3 H, RDW Coeff of David 14.2, Plt Count 352, MPV 10.9, Immature Gran % (Auto) 0.400, Neut % (Auto) 77.0 H, Lymph % (Auto) 12.5 L,[place] % (Auto) 9.6, Eos % (Auto) 0.1, Baso % (Auto) 0.4, Absolute Neuts (auto) 9.9 H, Absolute Lymphs (auto) 1.61, Nucleated RBC % 0, Sodium 136, Potassium 3.6, Chloride 97 L, Carbon Dioxide 28.0, Anion Gap 11, BUN 30 H, Creatinine 1.25, Estim Creat Clear Calc 67.87, Est GFR (MDRD) Af Amer 75, Est GFR (MDRD) Non-Af 62, BUN/Creatinine Ratio 24.0 H, Glucose 305 H, Calcium 9.5, Total Bilirubin 0.50, Direct Bilirubin 0.20, AST 16, ALT 14 L, Alkaline Phosphatase 129 H, Total Protein 7.4, Albumin 2.9 L, Globulin 4.5 H, Lipase 11 L 06/22/23 14:58: Urine Color Yellow, Urine Clarity Clear, Urine pH 5.0, Ur Specific [place] 1.025, Urine Protein 30 H, Urine Glucose (UA) Normal, Urine Ketones 5 H, Urine Occult Blood Negative, Urine Nitrite Negative, Urine Bilirubin 3 H, Urine Urobilinogen 1 H, Ur Leukocyte Esterase Negative, Urine RBC0-5 SEEN, Urine WBC 0-5 SEEN, Ur Squamous Epith Cells 0-5 SEEN, Urine Bacteria 1+, Hyaline Casts 0-5 SEEN, Urine Mucus 0 SEEN Imaging Radiology Impression Abdomen/Pelvis CT 06/22/23 14:20 IMPRESSION: Small bowel obstruction with question of early ischemic change. Electronically Signed: Ronan Awan MD at 15:35 EDT , ADDENDUM: 06/22/23 1544 IMPRESSION: Small bowel obstruction with question of early ischemic change. N.B. : The above Results were Read Back by Ronan Awan MD to Carmen Matthews MD, and understanding confirmed on 06/22/2023 15:37:25 (ET). Electronically Signed: Ronan Awan MD at 15:35 EDT , Assessment & Plan Assessment/Plan (1) Small bowel obstruction: (2) Morbid obesity: PLAN: Plan Patient is a 62-year-old male who [facility] 06[facility]22[facility]2023 with abdominal pain. 1. Recurrent small bowel obstruction ? Admit under inpatient status to PCU. General surgery consulted. NG tube was able to be placed in the ED, KUB confirmed appropriate placement. NG tube to suction for now. N.p.o. status. IV morphine every 2 hours as needed for pain control. Maintenance IV fluids. 2. Preoperative evaluation ? Cardiology consulted for assistance with evaluation. Currently holding home aspirin and Eliquis. Patient is morbidly obese with BMI 47, has fairly poor functional status due to previous stroke and obesity. Hemoglobin A1c 7.3%, diabetes is actually fairly well-controlled. Will continue home beta-maren. Appreciate further cardiology recs. 3. Recent history of ascending aortic aneurysm repair and aortic valve replacement ? Surgery done at the [facility] in March 2023. Repeat echo recently done (in [facility] records) showed appropriate functioning of new aortic valve. Hemodynamically stable on room air on admit here. 4. Recent left MCA stroke ? With residual deficits of significant right arm weakness, moderate right leg weakness and mild speech dysfunction. PT/OT/case management consulted. Holdinghome aspirin, continue home statin. Chronic medical conditions: ? Morbid obesity: BMI 47 on admit. Complicates hospital course, care and prognosis. ? Type 2 diabetes mellitus: Blood glucose 305 on admit. A1c 7.3%. Home regimenof Lantus 12 units daily with sliding-scale insulin as needed with meals. Will start Lantus 10 units daily with sliding scale insulin, adjust as needed. ? GERD: Continue home PPI. ? Chronic pain with neuropathy: Continue home Lyrica, IV morphine as needed on for SBO as noted above. ? COPD: Stable, not in acute exacerbation. Continue home inhalers. ? Hyperlipidemia: Continue home statin. ? Insomnia: Continue home trazodone. DVT prophylaxis: SCDs CODE STATUS: Full code, verified Expected disposition: TBD Total clinical time spent by myself addressing the patient's medical issues, reviewing all the data, and collaborating with patient's care team: 55 minutes. Charges/Coding Visit Charges Inpatient E&M: 75855 Init Hosp L2 06/23/23 0025 <Electronically signed by Patrick Sharma DO> Cosigner Signature (if applicable): CC: Dr. Patrick Sharma DO; Dr. Alyson Arthur MD~ [facility] Work Phone: [phone] 214-766305-09-2024 Discharge summary Author Carmen [facility] June 22, 2023 4:58pm Note Date/Time June 22, 2023 2:23pm [facility] Medical Records Department [address] [place] [address] Emergency Department Summary 06/22/23 MR#: [id number] Acct: [id number] Name: KIEL CATHERINE Rep #:[id number] : 1960 62 From: Carmen Matthews MD PCP: Dr. Alyson Arthur MD Status:REG E R Location: ED HPI History of Present Illness Chief Complaint: Abd Pain Informant: patient Narrative Narrative: Patient presents via EMS secondary to abdominal pain. He points to the area just below the umbilicus and describing his area of pain. He does report some nausea and constipation. Patient had a stroke in March of this year and has right-sided weakness. He states he has had similar pain in the past but seem toresolve and then recurred again last evening. [facility] Medical History Anxiety Asthma Atherosclerotic heart disease of [place] coronary artery without angina pectoris Atrial septal defect and mitral stenosis Bicuspid aortic valve Bipolar 1 disorder Carpal tunnel syndrome, bilateral Chronic pain COPD (chronic obstructive pulmonary disease) CPAP (continuous positive airway pressure) dependence Degenerative disc disease Diabetic neuropathy Essential (primary) hypertension GERD (gastroesophageal reflux disease) Hearing loss, left HLD (hyperlipidemia) Leaky heart valve LVH (left ventricular hypertrophy) Morbid obesity MANISH (obstructive sleep apnea) Pancreatitis Smoker Type II diabetes mellitus Home Medications diltiazem HCl 180 mg capsule,24 hr,extended release 180 mg PO DAILY 11/20/13 [History Last Taken Unknown] metformin 500 mg tablet 500 mg PO 4X/DAY 11/20/13 [History Last Taken Unknown] atorvastatin 10 mg tablet 10 mg PO QHS 11/03/16 [History Last Taken Unknown] dulaglutide 0.75 mg/0.5 mL subcutaneous pen injector (Trulicity) 3 mg SQ QWEEK DIABETES 11/03/16 [History Last Taken 10/07/22] glimepiride 2 mg tablet 4 mg PO DAILY 11/03/16 [History Last Taken Unknown] budesonide-formoterol HFA 80 mcg-4.5 mcg/actuation aerosol inhaler 2 puff inhalation BID 10/30/20 [History Last Taken Unknown] oxycodone myristate 18 mg capsule sprinkle extended release 12hr(DON'T CRUSH) (Xtampza ER) 18 mg PO BID 10/30/20 [History Last Taken Unknown] pantoprazole 40 mg tablet,delayed release 40 mg PO DAILY 10/30/20 [History Last Taken Unknown] acetaminophen 500 mg tablet 1,000 mg PO TID PRN Pain 10/18/21 [History Last Taken Unknown] albuterol sulfate 90 mcg/actuation aerosol inhaler (Ventolin HFA) 1 - 2 puff inhalation Q4H PRN PRN Wheezing #8.5 grams 10/18/21 [Rx Last Taken Unknown] carvedilol 3.125 mg tablet 3.125 mg PO BID BP 10/09/22 [History Last Taken Unknown] diclofenac potassium 25 mg capsule 25 mg PO BID PAIN 10/09/22 [History Last Taken Unknown] ergocalciferol (vitamin D2) 1,250 mcg (50,000 unit) capsule (Vitamin D2) 50,000 unit PO .MONDAY REPLACEMET 10/09/22 [History Last Taken Unknown] furosemide 40 mg tablet 40 mg PO DAILY #30 tabs 10/11/22 [Rx Last Taken Unknown] levofloxacin 750 mg tablet 750 mg PO DAILY #7 tabs 10/11/22 [Rx Last Taken Unknown] losartan 50 mg tablet 50 mg PO DAILY #30 tabs 10/11/22 [Rx Last Taken Unknown] potassium chloride 20 mEq tablet,extended release(part/cryst) (Klor-Con M) 20 meq PO DAILY #30 tabs 10/11/22 [Rx Last Taken Unknown] prednisone 20 mg tablet 40 mg (2 x 20 mg) PO BREAKFAST #6 tabs 10/11/22 [Rx Last Taken Unknown] insulin aspart U-100 100 unit/mL (3 mL) subcutaneous pen (Novolog FlexPen U-100 Insulin aspart) 2 unit subcut TID 10/14/22 [History Last Taken Unknown] insulin glargine 100 unit/mL (3 mL) subcutaneous pen 20 unit subcut HS 10/14/22 [History Last Taken Unknown] pregabalin 100 mg capsule (Lyrica) 100 mg PO .COMPLEX NEUROPATHY 10/14/22 [History Last Taken Unknown] Allergy/AdvReac Type Severity Reaction Status Date / Time Penicillins Allergy Hives Verified 06/22/23 14:08 fluticasone [From Flonase] AdvReac Severe Nose Bleeds Verified 06/22/23 14:08 lisinopril AdvReac Intermediate Upset Verified 06/22/23 14:08 Stomach NASAL SPRAY AdvReac Intermediate Chest Uncoded 10/09/22 14:22 tightness Family History Father Diabetes Dementia Mother CAD (coronary artery disease) CABG X4 Sister Diabetes Brother Ischemic heart disease Brother Myocardial infarction Surgical History History of back surgery Social History household members: spouse housing: house Smoking Status: Current every day smoker tobacco type: cigarettes Tobacco: How many years used: 45 alcohol intake: current alcohol intake frequency: holidays/special occasions only substance use type: does not use ROS ROS ED Constitutional Constitutional ED: Reports chills; Denies fever(s) Eyes Eyes: Denies change in vision or discharge from eye(s) ENT ENT ED: Denies discharge from eye(s), rhinorrhea or sore throat Cardiovascular Cardiovascular: Denies chest pain or palpitations Respiratory/Chest Respiratory/Chest: Denies cough or dyspnea Gastrointestinal Gastrointestinal: Reports abdominal pain, constipation and nausea; Denies diarrhea or vomiting Genitourinary Genitourinary ED: Denies dysuria Musculoskeletal Musculoskeletal: Denies back pain or extremity pain Integumentary Denies Abrasions or rash Neurologic Neurologic: Denies headache(s) or weakness Allergic/Immunologic Allergic/Immunologic ED: Denies lip swelling or urticaria EXAM Physical Exam Const Vital Signs: 06/22/23 14:08 Temperature 97.5 F L Temperature Source Temporal Pulse Rate 102 H Respiratory Rate 18 Blood Pressure 111/94 H Blood Pressure Mean 99 Pulse Ox 92 Oxygen Delivery Method Room Air Positive well nourished and well developed General Appearance ED: well developed HEENT Reports moist mucous membranes Eyes EOMs intact bilaterally Chest Wall inspection of chest normal and palpation of chest normal Resp normal respiratory effort and clear to auscultation bilaterally Cardio regular rate and regular rhythm GI GI Narrative: Abdomen soft, obese, mild lower abdominal tenderness. No guarding or rebound. Hypoactive bowel sounds noted. Extremity normal to inspection Neuro Neuro Narrative: Chronic right-sided weakness secondary to prior stroke. Psych mental status grossly normal MDM MDM MDM Narrative Medical decision making narrative: IV line established. Labwork obtained to evaluate for leukocytosis, anemia, andelectrolyte derangement. Urinalysis obtained to evaluate for infection/hematuria. CT scan of the abdomen pelvis obtained to evaluate for potential bowel obstruction, appendicitis, urinary retention. History & Record Review Discussion w/independent historian: Patient and Family Lab Data Attestation: I reviewed the patient's lab results. Labs: Laboratory Results - last 24 hr 06/22/23 06/22/23 14:42 14:58 WBC 12.8 H RBC 5.50 Hgb 16.0 Hct 47.8 MCV 86.9 MCH 29.1 MCHC 33.5 RDW Std Deviation 45.3 H RDW Coeff of David 14.2 Plt Count 352 MPV 10.9 Immature Gran % (Auto) 0.400 Neut % (Auto) 77.0 H Lymph % (Auto) 12.5 L [place] % (Auto) 9.6 Eos % (Auto) 0.1 Baso % (Auto) 0.4 Absolute Neuts (auto) 9.9 H Absolute Lymphs (auto) 1.61 Nucleated RBC % 0 Sodium 136 Potassium 3.6 Chloride 97 L Carbon Dioxide 28.0 Anion Gap 11 BUN 30 H Creatinine 1.25 Estim Creat Clear Calc 67.87 Est GFR (MDRD) Af Amer 75 Est GFR (MDRD) Non-Af 62 BUN/Creatinine Ratio 24.0 H Glucose 305 H Calcium 9.5 Total Bilirubin 0.50 Direct Bilirubin 0.20 AST 16 ALT 14 L Alkaline Phosphatase 129 H Total Protein 7.4 Albumin 2.9 L Globulin 4.5 H Lipase 11 L Urine Color Yellow Urine Clarity Clear Urine pH 5.0 Ur Specific [place] 1.025 Urine Protein 30 H Urine Glucose (UA) Normal Urine Ketones 5 H Urine Occult Blood Negative Urine Nitrite Negative Urine Bilirubin 3 H Urine Urobilinogen 1 H Ur Leukocyte Esterase Negative Urine RBC 0-5 SEEN Urine WBC 0-5 SEEN Ur Squamous Epith Cells 0-5 SEEN Urine Bacteria 1+ Hyaline Casts 0-5 SEEN Urine Mucus 0 SEEN Radiography Diagnostic Testing: Clinical Impression(s) from Imaging Studies Abdomen/Pelvis CT 06/22/23 14:20 IMPRESSION: Small bowel obstruction with question of early ischemic change. Electronically Signed: Ronan Awan MD at 15:35 EDT , ADDENDUM: 06/22/23 1544 IMPRESSION: Small bowel obstruction with question of early ischemic change. N.B. : The above Results were Read Back by Ronan Awan MD to Carmen Matthews MD, and understanding confirmed on 06/22/2023 15:37:25 (ET). Electronically Signed: Ronan Awan MD at 15:35 EDT , Treatment and Re-Evaluation :: CBC was a white count of 12.8 with 77% neutrophils. Hemoglobin is 16. Chemistry studies reveal a BUN of 30 and creatinine of 1.25. Glucose is 305. LFTs significant for an alk phos of 129. Urinalysis reveals 1+ bacteria with noother sign of infection. CT scan of the abdomen and pelvis reveals small bowel obstruction with question early ischemic change. Test results are discussed with the patient as well as daughter who is now at bedside. She states the patient has had recurrent problems with bowel obstruction since his stroke in March. He has been seen at other facilities but not here previously. He hasnever required an abdominal surgery. I paged Dr. Stevenson who has responded to the emergency room to evaluate the patient. He asked that an NG tube be placed. The patient is currently on Eliquis and aspirin. No plans for immediate surgery at this time. He did ask that medicine admit the patient and we will have cardiology see him as well given his prior valve replacement. Discharge Plan Triage Chief Complaint: Abd Pain ED Provider: Carmen Matthews Dx/Rx/DC Orders Clinical Impression: Small bowel obstruction Prescriptions: No Action insulin glargine 100 unit/mL (3 mL) insulin pen 20 unit subcut HS pregabalin [Lyrica] 100 mg capsule 100 mg PO .COMPLEX Rx Instructions: Two in AM; one in afternoon; one in PM100 mg orally Two in AM; one in afternoon; one in PM metformin 500 MG tablet 500 mg PO 4X/DAY Patient Comments: DIABETES diltiazem HCl 180 MG capsule,extended release 24 hr 180 mg PO DAILY Patient Comments: HEART atorvastatin 10 MG tablet 10 mg PO QHS glimepiride 2 MG tablet 4 mg PO DAILY Trulicity 0.75 MG/0.5 ML pen injector 3 mg SQ QWEEK budesonide-formoterol 80-4.5 mcg/actuation Hfa Aerosol Inhaler 2 puff INHALATION BID Xtampza ER 18 mg Cap,Sprinkl,Er12hr(Dont Crush) 18 mg PO BID pantoprazole 40 mg Tablet,Delayed Release (Dr/Ec) 40 mg PO DAILY insulin aspart U-100 [Novolog FlexPen U-100 Insulin] 100 unit/mL (3 mL) insulin pen 2 unit SUBCUT TID Rx Instructions: 2 units per every 50 after 200 BG acetaminophen 500 MG tablet 1,000 mg PO TID PRN (Reason: Pain) albuterol sulfate [Ventolin HFA] 90 mcg/actuation HFA aerosol inhaler 1 - 2 puff inhalation Q4H PRN PRN (Reason: Wheezing) Qty: 8.5 0RF ergocalciferol (vitamin D2) [Vitamin D2] 1,250 mcg (50,000 unit) capsule 50,000 unit PO .MONDAY diclofenac potassium 25 mg capsule 25 mg PO BID Patient Comments: TAKE 1 CAPSULE BY MOUTH TWICE DAILY carvedilol 3.125 mg tablet 3.125 mg PO BID prednisone 20 mg Tablet 40 mg PO BREAKFAST Qty: 6 0RF furosemide 40 mg tablet 40 mg PO DAILY Qty: 30 2RF potassium chloride [Klor-Con M20] 20 mEq tablet,ER particles/crystals 20 meq PO DAILY Qty: 30 2RF losartan 50 mg tablet 50 mg PO DAILY Qty: 30 2RF levofloxacin 750 mg tablet 750 mg PO DAILY Qty: 7 0RF Primary Care Provider: Alyson Arthur Referrals: Alyson Arthur MD [Primary Care Provider] - Disposition Disposition: Acute Care Hospital [facility] What to do if you have Problems For any increased pain, shortness of breath, bleeding, nausea or vomiting, chestpain, or any unexpected problems, contact your Primary Care Provider. Call [facility] ([phone]) or report to the closest Emergency Room. Call 911 if necessary. 06/22/23 1658 <Electronically signed by Carmen Matthews MD> Cosigner Signature (if applicable): CC: Dr. Alyson Arthur MD ~ [facility] Work Phone: [phone]) 868-176205-09-2024 Consult note Author Raj Stevenson [facility] June 22, 2023 4:32pm Note Date/Time June 22, 2023 4:32pm [facility] Medical Records Department [address] [place] [address] Consultation - Surgical 06/22/23 1625 MR#: [id number] Acct: [id number] Name: KIEL CATHERINE Rep #:[id number] : 1960 62 From: Raj márquez MD PCP: Dr. Alyson Arthur MD Status:REG E R Location: ED Assessment & Plan Assessment/Plan (1) Small bowel obstruction: PLAN: The patient presented with abdominal pain and nausea and vomiting a CT scan revealed a bowel obstruction. The patient has decompressed distal small bowel and distended proximal small bowel with stomach dilation. There is concern for ischemia due to the presence of edema in the mesentery on CT scan. On physical exam the patient is distended with some tenderness in the supraumbilical area. He does not have any guarding or rebound tenderness. White count is elevated with some left shift. The patient has an odd presentation. He had recent cardiac surgery and CVA. Heis diabetic as well. The patient has had 3 bowel obstruction since surgery in March but has not had any abdominal surgeries. Patient is also on Eliquis and aspirin. He reports that his last 3 bowel obstructions have resolved spontaneously. I would like to have the patient admitted to medicine for medical management and have an NG placed. I will reorder an x-ray in the morning. Possibly consult cardiology as well as the patient has a significant and recent cardiac surgery history. If the Eliquis and aspirin are able to be held that would be helpful. If labs worsen or physical exam worsens tomorrow wewill take him for surgery and explore. At this time the patient does not have any peritoneal signs or fever and would be high risk due to blood thinners and recent cardiac history and recent stroke history. If the patient worsens and there is concern for bowel I will take him to surgery on his blood thinners. Raj Stevenson MD Pager: [facility] [address] [place] [address] [facility] [address] [place] [address] Office: HPI Consult Data Date of Consult: 06/22/23 HPI Narrative HPI Narrative: KIEL CATHERINE, is a 62 M who presents with nausea and vomiting. The patient has a complicated medical history. He also is a poor historian. Patient says that he had bicuspid valve replacement in March [facility]. He says hehad a CVA during the surgery. He says that he developed a bowel obstruction after the surgery. He has had 2 other bowel obstructions treated at [facility]. He says they were treated nonoperatively. The patient reports no previous abdominal surgeries. He says his mid upper abdomen is painful. He says he had a bowel movement yesterday and feels like he has to have another 1. He denies acute pain and says that it comes and goes. [facility] Medical History Anxiety Asthma Atherosclerotic heart disease of [place] coronary artery without angina pectoris Atrial septal defect and mitral stenosis Bicuspid aortic valve Bipolar 1 disorder Carpal tunnel syndrome, bilateral Chronic pain COPD (chronic obstructive pulmonary disease) CPAP (continuous positive airway pressure) dependence Degenerative disc disease Diabetic neuropathy Essential (primary) hypertension GERD (gastroesophageal reflux disease) Hearing loss, left HLD (hyperlipidemia) Leaky heart valve LVH (left ventricular hypertrophy) Morbid obesity MANISH (obstructive sleep apnea) Pancreatitis Smoker Type II diabetes mellitus Home Medications diltiazem HCl 180 mg capsule,24 hr,extended release 180 mg PO DAILY 11/20/13 [History Last Taken Unknown] metformin 500 mg tablet 500 mg PO 4X/DAY 11/20/13 [History Last Taken Unknown] atorvastatin 10 mg tablet 10 mg PO QHS 11/03/16 [History Last Taken Unknown] dulaglutide 0.75 mg/0.5 mL subcutaneous pen injector (Trulicity) 3 mg SQ QWEEK DIABETES 11/03/16 [History Last Taken 10/07/22] glimepiride 2 mg tablet 4 mg PO DAILY 11/03/16 [History Last Taken Unknown] budesonide-formoterol HFA 80 mcg-4.5 mcg/actuation aerosol inhaler 2 puff inhalation BID 10/30/20 [History Last Taken Unknown] oxycodone myristate 18 mg capsule sprinkle extended release 12hr(DON'T CRUSH) (Xtampza ER) 18 mg PO BID 10/30/20 [History Last Taken Unknown] pantoprazole 40 mg tablet,delayed release 40 mg PO DAILY 10/30/20 [History Last Taken Unknown] acetaminophen 500 mg tablet 1,000 mg PO TID PRN Pain 10/18/21 [History Last Taken Unknown] albuterol sulfate 90 mcg/actuation aerosol inhaler (Ventolin HFA) 1 - 2 puff inhalation Q4H PRN PRN Wheezing #8.5 grams 10/18/21 [Rx Last Taken Unknown] carvedilol 3.125 mg tablet 3.125 mg PO BID BP 10/09/22 [History Last Taken Unknown] diclofenac potassium 25 mg capsule 25 mg PO BID PAIN 10/09/22 [History Last Taken Unknown] ergocalciferol (vitamin D2) 1,250 mcg (50,000 unit) capsule (Vitamin D2) 50,000 unit PO .MONDAY REPLACEMET 10/09/22 [History Last Taken Unknown] furosemide 40 mg tablet 40 mg PO DAILY #30 tabs 10/11/22 [Rx Last Taken Unknown] levofloxacin 750 mg tablet 750 mg PO DAILY #7 tabs 10/11/22 [Rx Last Taken Unknown] losartan 50 mg tablet 50 mg PO DAILY #30 tabs 10/11/22 [Rx Last Taken Unknown] potassium chloride 20 mEq tablet,extended release(part/cryst) (Klor-Con M) 20 meq PO DAILY #30 tabs 10/11/22 [Rx Last Taken Unknown] prednisone 20 mg tablet 40 mg (2 x 20 mg) PO BREAKFAST #6 tabs 10/11/22 [Rx Last Taken Unknown] insulin aspart U-100 100 unit/mL (3 mL) subcutaneous pen (Novolog FlexPen U-100 Insulin aspart) 2 unit subcut TID 10/14/22 [History Last Taken Unknown] insulin glargine 100 unit/mL (3 mL) subcutaneous pen 20 unit subcut HS 10/14/22 [History Last Taken Unknown] pregabalin 100 mg capsule (Lyrica) 100 mg PO .COMPLEX NEUROPATHY 10/14/22 [History Last Taken Unknown] Allergy/AdvReac Type Severity Reaction Status Date / Time Penicillins Allergy Hives Verified 06/22/23 14:08 fluticasone [From Flonase] AdvReac Severe Nose Bleeds Verified 06/22/23 14:08 lisinopril AdvReac Intermediate Upset Verified 06/22/23 14:08 Stomach NASAL SPRAY AdvReac Intermediate Chest Uncoded 10/09/22 14:22 tightness Family History Father Diabetes Dementia Mother CAD (coronary artery disease) CABG X4 Sister Diabetes Brother Ischemic heart disease Brother Myocardial infarction Surgical History History of back surgery Social History household members: spouse housing: house Smoking Status: Current every day smoker tobacco type: cigarettes Tobacco: How many years used: 45 alcohol intake: current alcohol intake frequency: holidays/special occasions only substance use type: does not use ROS Constitutional Constitutional: Denies anorexia, chills or fatigue Eyes Eyes: Denies blurry vision ENT HEENT: Denies abnormal hearing Cardiovascular Cardiovascular: Denies chest pain Respiratory/Chest Respiratory/Chest: Denies cough or dyspnea Gastrointestinal Gastrointestinal: Reports abdominal pain, nausea and vomiting Genitourinary Genitourinary: Denies change in urinary stream Musculoskeletal Musculoskeletal: Denies abnormal gait Integumentary Integumentary: Denies jaundice Neurologic Neurologic: Denies dizziness Psychiatric Psychiatric: Denies anxiety Endocrine Endocrinology: Denies heat intolerance Hematologic/Lymphatic Hematologic/Lymphatic: Denies easy bleeding Physical Exam Const alert and oriented x3 HEENT normocephalic Eyes PERRL Resp normal respiratory effort Cardio Rate: regular rate Rhythm: regular rhythm GI soft to palpation Inspection: abdominal distention Palpation: tender periumbilical Lab / Micro Data 06/22/23 14:42 06/22/23 14:42 Labs: Laboratory Results - last 24 hr 06/22/23 14:42: WBC 12.8 H, RBC 5.50, Hgb 16.0, Hct 47.8, MCV 86.9, MCH 29.1, MCHC 33.5, RDW Std Deviation 45.3 H, RDW Coeff of [place] 14.2, Plt Count 352, MPV 10.9, Immature Gran % (Auto) 0.400, Neut % (Auto) 77.0 H, Lymph % (Auto) 12.5 L,[place] % (Auto) 9.6, Eos % (Auto) 0.1, Baso % (Auto) 0.4, Absolute Neuts (auto) 9.9 H, Absolute Lymphs (auto) 1.61, Nucleated RBC % 0, Sodium 136, Potassium 3.6, Chloride 97 L, Carbon Dioxide 28.0, Anion Gap 11, BUN 30 H, Creatinine 1.25, Estim Creat Clear Calc 67.87, Est GFR (MDRD) Af Amer 75, Est GFR (MDRD) Non-Af 62, BUN/Creatinine Ratio 24.0 H, Glucose 305 H, Calcium 9.5, Total Bilirubin 0.50, Direct Bilirubin 0.20, AST 16, ALT 14 L, Alkaline Phosphatase 129 H, Total Protein 7.4, Albumin 2.9 L, Globulin 4.5 H, Lipase 11 L 06/22/23 14:58: Urine Color Yellow, Urine Clarity Clear, Urine pH 5.0, Ur Specific [place] 1.025, Urine Protein 30 H, Urine Glucose (UA) Normal, Urine Ketones 5 H, Urine Occult Blood Negative, Urine Nitrite Negative, Urine Bilirubin 3 H, Urine Urobilinogen 1 H, Ur Leukocyte Esterase Negative, Urine RBC0-5 SEEN, Urine WBC 0-5 SEEN, Ur Squamous Epith Cells 0-5 SEEN, Urine Bacteria 1+, Hyaline Casts 0-5 SEEN, Urine Mucus 0 SEEN Imaging Radiology Impression Abdomen/Pelvis CT 06/22/23 14:20 IMPRESSION: Small bowel obstruction with question of early ischemic change. Electronically Signed: Ronan Awan MD at 15:35 EDT , ADDENDUM: 06/22/23 2911 IMPRESSION: Small bowel obstruction with question of early ischemic change. N.B. : The above Results were Read Back by Ronan Awan MD to Carmen Matthews MD, and understanding confirmed on 06/22/2023 15:37:25 (ET). Electronically Signed: Ronan Awan MD at 15:35 EDT Reading Location ID and State: [facility] / MD Tel , Service support , 06/22/23 1632 <Electronically signed by Raj Stevenson MD> Cosigner Signature (if applicable): CC: Dr. Alyson Arthur MD~ [facility] Work Phone: [phone]) 457-684505-09-2024 Discharge summary Author Carmen Matthews [facility] June 22, 2023 4:58pm Note Date/Time June 22, 2023 2:23pm [facility] Medical Records Department [address] [place] [address] Emergency Department Summary 06/22/23 MR#: [id number] Acct: [id number] Name: KIEL CATHERINE Rep #:[id number] : 1960 62 From: Carmen Matthews MD PCP: Dr. Alyson Arthur MD Status:REG E R Location: ED HPI History of Present Illness Chief Complaint: Abd Pain Informant: patient Narrative Narrative: Patient presents via EMS secondary to abdominal pain. He points to the area just below the umbilicus and describing his area of pain. He does report some nausea and constipation. Patient had a stroke in March of this year and has right-sided weakness. He states he has had similar pain in the past but seem toresolve and then recurred again last evening. [facility] Medical History Anxiety Asthma Atherosclerotic heart disease of [place] coronary artery without angina pectoris Atrial septal defect and mitral stenosis Bicuspid aortic valve Bipolar 1 disorder Carpal tunnel syndrome, bilateral Chronic pain COPD (chronic obstructive pulmonary disease) CPAP (continuous positive airway pressure) dependence Degenerative disc disease Diabetic neuropathy Essential (primary) hypertension GERD (gastroesophageal reflux disease) Hearing loss, left HLD (hyperlipidemia) Leaky heart valve LVH (left ventricular hypertrophy) Morbid obesity MANISH (obstructive sleep apnea) Pancreatitis Smoker Type II diabetes mellitus Home Medications diltiazem HCl 180 mg capsule,24 hr,extended release 180 mg PO DAILY 11/20/13 [History Last Taken Unknown] metformin 500 mg tablet 500 mg PO 4X/DAY 11/20/13 [History Last Taken Unknown] atorvastatin 10 mg tablet 10 mg PO QHS 11/03/16 [History Last Taken Unknown] dulaglutide 0.75 mg/0.5 mL subcutaneous pen injector (Trulicity) 3 mg SQ QWEEK DIABETES 11/03/16 [History Last Taken 10/07/22] glimepiride 2 mg tablet 4 mg PO DAILY 11/03/16 [History Last Taken Unknown] budesonide-formoterol HFA 80 mcg-4.5 mcg/actuation aerosol inhaler 2 puff inhalation BID 10/30/20 [History Last Taken Unknown] oxycodone myristate 18 mg capsule sprinkle extended release 12hr(DON'T CRUSH) (Xtampza ER) 18 mg PO BID 10/30/20 [History Last Taken Unknown] pantoprazole 40 mg tablet,delayed release 40 mg PO DAILY 10/30/20 [History Last Taken Unknown] acetaminophen 500 mg tablet 1,000 mg PO TID PRN Pain 10/18/21 [History Last Taken Unknown] albuterol sulfate 90 mcg/actuation aerosol inhaler (Ventolin HFA) 1 - 2 puff inhalation Q4H PRN PRN Wheezing #8.5 grams 10/18/21 [Rx Last Taken Unknown] carvedilol 3.125 mg tablet 3.125 mg PO BID BP 10/09/22 [History Last Taken Unknown] diclofenac potassium 25 mg capsule 25 mg PO BID PAIN 10/09/22 [History Last Taken Unknown] ergocalciferol (vitamin D2) 1,250 mcg (50,000 unit) capsule (Vitamin D2) 50,000 unit PO .MONDAY REPLACEMET 10/09/22 [History Last Taken Unknown] furosemide 40 mg tablet 40 mg PO DAILY #30 tabs 10/11/22 [Rx Last Taken Unknown] levofloxacin 750 mg tablet 750 mg PO DAILY #7 tabs 10/11/22 [Rx Last Taken Unknown] losartan 50 mg tablet 50 mg PO DAILY #30 tabs 10/11/22 [Rx Last Taken Unknown] potassium chloride 20 mEq tablet,extended release(part/cryst) (Klor-Con M) 20 meq PO DAILY #30 tabs 10/11/22 [Rx Last Taken Unknown] prednisone 20 mg tablet 40 mg (2 x 20 mg) PO BREAKFAST #6 tabs 10/11/22 [Rx Last Taken Unknown] insulin aspart U-100 100 unit/mL (3 mL) subcutaneous pen (Novolog FlexPen U-100 Insulin aspart) 2 unit subcut TID 10/14/22 [History Last Taken Unknown] insulin glargine 100 unit/mL (3 mL) subcutaneous pen 20 unit subcut HS 10/14/22 [History Last Taken Unknown] pregabalin 100 mg capsule (Lyrica) 100 mg PO .COMPLEX NEUROPATHY 10/14/22 [History Last Taken Unknown] Allergy/AdvReac Type Severity Reaction Status Date / Time Penicillins Allergy Hives Verified 06/22/23 14:08 fluticasone [From Flonase] AdvReac Severe Nose Bleeds Verified 06/22/23 14:08 lisinopril AdvReac Intermediate Upset Verified 06/22/23 14:08 Stomach NASAL SPRAY AdvReac Intermediate Chest Uncoded 10/09/22 14:22 tightness Family History Father Diabetes Dementia Mother CAD (coronary artery disease) CABG X4 Sister Diabetes Brother Ischemic heart disease Brother Myocardial infarction Surgical History History of back surgery Social History household members: spouse housing: house Smoking Status: Current every day smoker tobacco type: cigarettes Tobacco: How many years used: 45 alcohol intake: current alcohol intake frequency: holidays/special occasions only substance use type: does not use ROS ROS ED Constitutional Constitutional ED: Reports chills; Denies fever(s) Eyes Eyes: Denies change in vision or discharge from eye(s) ENT ENT ED: Denies discharge from eye(s), rhinorrhea or sore throat Cardiovascular Cardiovascular: Denies chest pain or palpitations Respiratory/Chest Respiratory/Chest: Denies cough or dyspnea Gastrointestinal Gastrointestinal: Reports abdominal pain, constipation and nausea; Denies diarrhea or vomiting Genitourinary Genitourinary ED: Denies dysuria Musculoskeletal Musculoskeletal: Denies back pain or extremity pain Integumentary Denies Abrasions or rash Neurologic Neurologic: Denies headache(s) or weakness Allergic/Immunologic Allergic/Immunologic ED: Denies lip swelling or urticaria EXAM Physical Exam Const Vital Signs: 06/22/23 14:08 Temperature 97.5 F L Temperature Source Temporal Pulse Rate 102 H Respiratory Rate 18 Blood Pressure 111/94 H Blood Pressure Mean 99 Pulse Ox 92 Oxygen Delivery Method Room Air Positive well nourished and well developed General Appearance ED: well developed HEENT Reports moist mucous membranes Eyes EOMs intact bilaterally Chest Wall inspection of chest normal and palpation of chest normal Resp normal respiratory effort and clear to auscultation bilaterally Cardio regular rate and regular rhythm GI GI Narrative: Abdomen soft, obese, mild lower abdominal tenderness. No guarding or rebound. Hypoactive bowel sounds noted. Extremity normal to inspection Neuro Neuro Narrative: Chronic right-sided weakness secondary to prior stroke. Psych mental status grossly normal MDM MDM MDM Narrative Medical decision making narrative: IV line established. Labwork obtained to evaluate for leukocytosis, anemia, andelectrolyte derangement. Urinalysis obtained to evaluate for infection/hematuria. CT scan of the abdomen pelvis obtained to evaluate for potential bowel obstruction, appendicitis, urinary retention. History & Record Review Discussion w/independent historian: Patient and Family Lab Data Attestation: I reviewed the patient's lab results. Labs: Laboratory Results - last 24 hr 06/22/23 06/22/23 14:42 14:58 WBC 12.8 H RBC 5.50 Hgb 16.0 Hct 47.8 MCV 86.9 MCH 29.1 MCHC 33.5 RDW Std Deviation 45.3 H RDW Coeff of David 14.2 Plt Count 352 MPV 10.9 Immature Gran % (Auto) 0.400 Neut % (Auto) 77.0 H Lymph % (Auto) 12.5 L [place] % (Auto) 9.6 Eos % (Auto) 0.1 Baso % (Auto) 0.4 Absolute Neuts (auto) 9.9 H Absolute Lymphs (auto) 1.61 Nucleated RBC % 0 Sodium 136 Potassium 3.6 Chloride 97 L Carbon Dioxide 28.0 Anion Gap 11 BUN 30 H Creatinine 1.25 Estim Creat Clear Calc 67.87 Est GFR (MDRD) Af Amer 75 Est GFR (MDRD) Non-Af 62 BUN/Creatinine Ratio 24.0 H Glucose 305 H Calcium 9.5 Total Bilirubin 0.50 Direct Bilirubin 0.20 AST 16 ALT 14 L Alkaline Phosphatase 129 H Total Protein 7.4 Albumin 2.9 L Globulin 4.5 H Lipase 11 L Urine Color Yellow Urine Clarity Clear Urine pH 5.0 Ur Specific [place] 1.025 Urine Protein 30 H Urine Glucose (UA) Normal Urine Ketones 5 H Urine Occult Blood Negative Urine Nitrite Negative Urine Bilirubin 3 H Urine Urobilinogen 1 H Ur Leukocyte Esterase Negative Urine RBC 0-5 SEEN Urine WBC 0-5 SEEN Ur Squamous Epith Cells 0-5 SEEN Urine Bacteria 1+ Hyaline Casts 0-5 SEEN Urine Mucus 0 SEEN Radiography Diagnostic Testing: Clinical Impression(s) from Imaging Studies Abdomen/Pelvis CT 06/22/23 14:20 IMPRESSION: Small bowel obstruction with question of early ischemic change. Electronically Signed: Ronan Awan MD at 15:35 EDT , ADDENDUM: 06/22/23 1544 IMPRESSION: Small bowel obstruction with question of early ischemic change. N.B. : The above Results were Read Back by Ronan Awan MD to Carmen Matthews MD, and understanding confirmed on 06/22/2023 15:37:25 (ET). Electronically Signed: Ronan Awan MD at 15:35 EDT , Treatment and Re-Evaluation :: CBC was a white count of 12.8 with 77% neutrophils. Hemoglobin is 16. Chemistry studies reveal a BUN of 30 and creatinine of 1.25. Glucose is 305. LFTs significant for an alk phos of 129. Urinalysis reveals 1+ bacteria with noother sign of infection. CT scan of the abdomen and pelvis reveals small bowel obstruction with question early ischemic change. Test results are discussed with the patient as well as daughter who is now at bedside. She states the patient has had recurrent problems with bowel obstruction since his stroke in March. He has been seen at other facilities but not here previously. He hasnever required an abdominal surgery. I paged Dr. Stevenson who has responded to the emergency room to evaluate the patient. He asked that an NG tube be placed. The patient is currently on Eliquis and aspirin. No plans for immediate surgery at this time. He did ask that medicine admit the patient and we will have cardiology see him as well given his prior valve replacement. Discharge Plan Triage Chief Complaint: Abd Pain ED Provider: Carmen Matthews Dx/Rx/DC Orders Clinical Impression: Small bowel obstruction Prescriptions: No Action insulin glargine 100 unit/mL (3 mL) insulin pen 20 unit subcut HS pregabalin [Lyrica] 100 mg capsule 100 mg PO .COMPLEX Rx Instructions: Two in AM; one in afternoon; one in PM100 mg orally Two in AM; one in afternoon; one in PM metformin 500 MG tablet 500 mg PO 4X/DAY Patient Comments: DIABETES diltiazem HCl 180 MG capsule,extended release 24 hr 180 mg PO DAILY Patient Comments: HEART atorvastatin 10 MG tablet 10 mg PO QHS glimepiride 2 MG tablet 4 mg PO DAILY Trulicity 0.75 MG/0.5 ML pen injector 3 mg SQ QWEEK budesonide-formoterol 80-4.5 mcg/actuation Hfa Aerosol Inhaler 2 puff INHALATION BID Xtampza ER 18 mg Cap,Sprinkl,Er12hr(Dont Crush) 18 mg PO BID pantoprazole 40 mg Tablet,Delayed Release (Dr/Ec) 40 mg PO DAILY insulin aspart U-100 [Novolog FlexPen U-100 Insulin] 100 unit/mL (3 mL) insulin pen 2 unit SUBCUT TID Rx Instructions: 2 units per every 50 after 200 BG acetaminophen 500 MG tablet 1,000 mg PO TID PRN (Reason: Pain) albuterol sulfate [Ventolin HFA] 90 mcg/actuation HFA aerosol inhaler 1 - 2 puff inhalation Q4H PRN PRN (Reason: Wheezing) Qty: 8.5 0RF ergocalciferol (vitamin D2) [Vitamin D2] 1,250 mcg (50,000 unit) capsule 50,000 unit PO .MONDAY diclofenac potassium 25 mg capsule 25 mg PO BID Patient Comments: TAKE 1 CAPSULE BY MOUTH TWICE DAILY carvedilol 3.125 mg tablet 3.125 mg PO BID prednisone 20 mg Tablet 40 mg PO BREAKFAST Qty: 6 0RF furosemide 40 mg tablet 40 mg PO DAILY Qty: 30 2RF potassium chloride [Klor-Con M20] 20 mEq tablet,ER particles/crystals 20 meq PO DAILY Qty: 30 2RF losartan 50 mg tablet 50 mg PO DAILY Qty: 30 2RF levofloxacin 750 mg tablet 750 mg PO DAILY Qty: 7 0RF Primary Care Provider: Alyson Arthur Referrals: Alyson Arthur MD [Primary Care Provider] - Disposition Disposition: Acute Care Hospital [facility] What to do if you have Problems For any increased pain, shortness of breath, bleeding, nausea or vomiting, chestpain, or any unexpected problems, contact your Primary Care Provider. Call [facility] ([phone]) or report to the closest Emergency Room. Call 911 if necessary. 06/22/23 4063 <Electronically signed by Carmen Matthews MD> Cosigner Signature (if applicable): CC: Dr. Alyson Arthur MD ~ Signed [facility] Work Phone: [phone] 576-401705-09-2024 Telephone encounter Note* Telephone Encounter - Alyson Arthur MD - 06/22/2023 1:40 PM EDT agree [facility]05-09-2024 Miscellaneous Notes* Telephone Encounter - Alyson Arthur MD - 06/22/2023 1:40 PM EDT agree * Telephone Encounter - Apple Allen RN - 06/22/2023 1:19 PM EDT Prakash from [facility] calls to report that patient is complaining of abdominal pain x 24 hours. Patient has been passing small amount of stool. Patient has had emesis x 2 since last night. Patient has been unable to keep anything down. Patient is very diaphoretic. BP 138/90 Pulse 105. Advised Prakash that patient needs to be seen in ER. Prakash voices understanding, states that is what she was thinking. Apple Allen RN [facility] Telephone encounter Note * Telephone Encounter - Apple Allen RN - 06/22/2023 1:19 PM EDT Prakash from [facility] calls to report that patient is complaining of abdominal pain x 24 hours. Patient has been passing small amount of stool. Patient has had emesis x 2 since last night. Patient has been unable to keep anything down. Patient is very diaphoretic. BP 138/90 Pulse 105. Advised Prakash that patient needs to be seen in ER. Prakash voices understanding, states that is what she was thinking. Apple Allen RN [facility]04-29-2024 Telephone encounter Note* Telephone Encounter - Aminah Escudero LPN - 06/12/2023 4:34 PM EDT Called and spoke with Shweta. States that still with abd pain and nausea. Still has diarrhea at times. Constipation is better using Miralax. No vomiting. Patient in background stating that feeling much better. Reminded them to be sure he keeps visit on 06/23/23. [facility]04-29-2024 Miscellaneous Notes* Telephone Encounter - Aminah Escudero LPN - 06/12/2023 4:34 PM EDT Called and spoke with Shweta. States that still with abd pain and nausea. Still has diarrhea at times. Constipation is better using Miralax. No vomiting. Patient in background stating that feeling much better. Reminded them to be sure he keeps visit on 06/23/23. * Telephone Encounter - Aminah Escudero LPN - 06/09/2023 4:12 PM EDT Left a message for patient/ to call and speak with triage nurse. (05/25/23 we had called in [employer] did that help him when he used it?) * Telephone Encounter - Alyson Arthur MD - 06/09/2023 3:16 PM EDT I actually saw him several weeks ago so it does not really mean much He had just gotten out of the hospital with a sbo. Is he having any distention. Is the abd like he went into the hospital for Is he feeling worse. 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 Spouse asking for nausea medication from Dr. Arthur for patient. -States patient has vomited x 1 in last week -x5 episodes of watery diarrhea in last 24 hours -abd pain comes and goes -spouse states since patient was seen recently seen by Dr. Arthur on 05/21 that appointment should not be needed -requesting nausea medication that will be covered by insurance Please advise spouse. [phone] [facility] Telephone encounter Note * Telephone Encounter - Aminah Escudero LPN - 06/09/2023 4:12 PM EDT Left a message for patient/ to call and speak with triage nurse. (05/25/23 we had called in [employer] did that help him when he used it?) [facility]04-26-2024 Telephone encounter Note* Telephone Encounter - Alyson Arthur MD - 06/09/2023 3:16 PM EDT I actually saw him several weeks ago so it does not really mean much He had just gotten out of the hospital with a sbo. Is he having any distention. Is the abd like he went into the hospital for Is he feeling worse. 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 Spouse asking for nausea medication from Dr. Arthur for patient. -States patient has vomited x 1 in last week -x5 episodes of watery diarrhea in last 24 hours -abd pain comes and goes -spouse states since patient was seen recently seen by Dr. Arthur on 05/21 that appointment should not be needed -requesting nausea medication that will be covered by insurance Please advise spouse. [phone] [facility]04-23-2024 Instructions* Patient Instructions* Kiel Barnes MD - 06/06/2023 3:38 PM EDT - stop amiodarone (pacerone) [facility] History of Present illness Narrative* Kiel Barnes MD - 06/06/2023 3:23 PM EDT Images from the original note were not included. Heart, Vascular and Thoracic [place] [facility] Department of Cardiovascular Medicine SECTION OF CLINICAL CARDIOLOGY OUTPATIENT VISIT DATE June 06, 2023 OUTPATIENT VISIT TYPE ESTABLISHED PRIMARY CARE PHYSICIAN: Alyson Arthur [address] [place] [address] REFERRING PHYSICIAN: Ruben Hanson [address], [address] [facility] [id number] CHIEF COMPLAINT: Follow-up 03/20/2023: AVR (27 Epic plus) and Ascending repair (28 hemishield) HISTORY OF PRESENT ILLNESS: Mr. Catherine is a 62 year old male who presents today for a cardiovascular medicine follow-up visit.He underwent aortic valve replacement in ascending aorta repair in early March that was unfortunately complicated by a left MCA ischemic stroke for which she still has right-sided deficits. He also had some postoperative atrial fibrillation. Continues to have follow-up appointments and plans to establish with local cardiology so he does not have to travel to the [facility]. PAST MEDICAL HISTORY Diagnosis Date Acute ischemic left MCA stroke ([facility]) 03/22/2023 Anxiety Aortic valve stenosis, nonrheumatic Atrial septal defect and mitral stenosis Bicuspid aortic valve Bipolar 1 disorder ([facility]) Chronic obstructive pulmonary disease (COPD) ([facility]) Coronary artery disease Degenerative disc disease sees Dr. Sellers Diabetic neuropathy ([facility]) DM (diabetes mellitus) ([facility]) HTN (hypertension) Hyperkalemia Hyperlipidemia Hypogonadism male LVH (left ventricular hypertrophy) Morbid obesity ([facility]) MANISH on CPAP Pain management Dr. Sellers PAST SURGICAL HISTORY Procedure Laterality Date BACK SURGERY HX fusion- lumbar CARPAL TUNNEL both HEART SURGERY HX 03/20/2023 S/p 03/20/2023 AVR (27 Epic plus) and Ascending repair (28 hemishield) PAST SURGICAL HISTORY OF left shouder surgery PAST SURGICAL HISTORY OF nasal passages clearing for sleep apnea PAST SURGICAL HISTORY OF 02/13/1981 ORIF right ankle PAST SURGICAL HISTORY OF 04/03/2013 left ulnar nerve decompression SOCIAL HISTORY Social History Tobacco Use Smoking status: Every Day Packs/day: 0.50 Years: 45.00 Additional pack years: 0.00 Total pack years: 22.50 Types: Cigarettes Smokeless tobacco: Never Vaping Use Vaping Use: Never used Substance Use Topics Alcohol use: Yes Comment: Rarely. 2 beers a year Drug use: No FAMILY HISTORY Problem Relation Age of Onset Diabetes Father 2011 with pneumonia other (Dementia) Father Heart Mother CABG 4. Diabetes Sister Ischemic Heart Disease Brother other (Myocardial infarc) Brother Fatal [place] No Ocular Disease No Family History ALLERGIES: ALLERGIES Allergen Reactions Iodinated Contrast * GI Upset, Other: See Comments Hypotension, temporary SOB Lisinopril Other: See Comments Hyperkalemia Penicillins Rash Flonase [Fluticason* Other: See Comments Nose bleeds MEDICATIONS: ondansetron (ZOFRAN) 4 mg tablet^Take 1 tablet by mouth every 8 hours as needed for nausea/vomiting.^Disp: 20 tablet^Rfl: 0 apixaban (ELIQUIS) 5 mg tab(s)^Take 1 tablet by mouth two times a day.^Disp: 60 tablet^Rfl: 11 MULTIVITAMIN-FERROUS FUMARATE-FOLIC ACID 18 MG-400 MCG TABLET^Take 1 tablet by mouth daily with breakfast.^Disp: 30 tablet^Rfl: 11 polyethylene glycol 3350 17 gram packet^Take 1 Packet by mouth once daily. Dissolve dose in 4 - 8 ounces of liquid and take as directed.^Disp: 30 Packet^Rfl: 11 Insulin Syringe-Needle U-100 0.5 mL 29 gauge x 1/2^4 Each once daily.^Disp: 100 Each^Rfl: 11 insulin lispro (HUMALOG U-100 INSULIN) 100 unit/mL injection^Per sliding scale QID^Disp: ^Rfl: traZODone (DESYREL) 50 mg tablet^Take 1 tablet by mouth daily at bedtime.^Disp: 30 tablet^Rfl: 2 Melatonin 5 mg cap^Take by mouth.^Disp: ^Rfl: bumetanide (BUMEX) 1 mg tablet^Take 2 tablets by mouth two times a day.^Disp: 360 tablet^Rfl: 1 amLODIPine (NORVASC) 5 mg tablet^Take 1 tablet by mouth once daily.^Disp: 90 tablet^Rfl: 1 atorvastatin (LIPITOR) 10 mg tablet^Take 1 tablet by mouth daily at bedtime.^Disp: 90 tablet^Rfl: 1 metoprolol tartrate 37.5 mg tab^Take 1 tablet by mouth every 12 hours.^Disp: 180 tablet^Rfl: [address] (PROTONIX) 40 mg tablet^Take 1 tablet by mouth daily before breakfast. Take on empty stomach, 1/2 hr before meal.^Disp: 90 tablet^Rfl: 1 traMADol (ULTRAM) 50 mg tablet^Take 1 tablet by mouth every 6 hours as needed for pain for up to 30days.^Disp: 120 tablet^Rfl: 0 insulin glargine 100 unit/mL (3 mL)^Inject 12 Units subcutaneously once daily.^Disp: 10.8 mL^Rfl: 1 pregabalin (LYRICA) 100 mg capsule^Take 1 capsule by mouth once daily for 90 days.^Disp: 90 capsule^Rfl: 0 Pregabalin (LYRICA) 200 mg capsule^Take 1 capsule by mouth daily at bedtime for 180 days.^Disp: 90 capsule^Rfl: 1 glycerin ADULT suppository^1 Suppository by RECTAL route as needed.^Disp: 25 Each^Rfl: 0 docusate sodium (COLACE) 100 mg capsule^Take 1 capsule by mouth two times a day.^Disp: 180 capsule^Rfl: 1 insulin needles, DISPOSABLE, (PEN NEEDLE) 31 gauge x 5/16^Use one needle per dose. 4per day.^Disp:100 Each^Rfl: 11 acetaminophen (TYLENOL) 650 mg/20.3 mL soln^20.3 mL by ORAL/FEEDING TUBE route every 4 hours as needed for pain. Do not exceed 5 doses in 24 hours.^Disp: ^Rfl: aspirin 81 mg chewable tablet^1 tablet by CORPAK route once daily.^Disp: ^Rfl: ipratropium-albuterol (DUONEB) 0.5 mg-3 mg(2.5 mg base)/3 mL nebu^Inhale 3 mL as instructed four times daily.^Disp: ^Rfl: magnesium hydroxide (MOM) 400 mg/5 mL suspension^30 mL by CORPAK route every 6 hours as needed.^Disp: ^Rfl: ammonium lactate (LAC-HYDRIN) 12 % cream^Apply to affected area as needed for dry skin.^Disp: 385 g^Rfl: 3 budesonide-formoterol (SYMBICORT) 80-4.5 mcg/actuation inhaler^Inhale 2 Puffs as instructed two times a day.^Disp: 1 Each^Rfl: 3 albuterol HFA (PROVENTIL HFA, VENTOLIN HFA) 90 mcg/actuation inhaler^Inhale 2 Puffs as instructed every 4 hours as needed for wheezing/shortness of breath.^Disp: 1 Each^Rfl: 0 guaiFENesin (ROBITUSSIN) 100 mg/5 mL syrup^10 mL by ORAL/FEEDING TUBE route every 6 hours.^Disp: ^Rfl: (Patient not taking: Reported on 06/06/2023) PEG 400-propylene glycol (SYSTANE ULTRA) 0.4-0.3 % ophthalmic solution^Use 1 Drop in both eyes three times daily.^Disp: 15 mL^Rfl: 3 (Patient not taking: Reported on 06/06/2023) propylene glycoL (SYSTANE BALANCE) 0.6 % drop^Use 1 Drop in both eyes daily at bedtime.^Disp: 10 mL^Rfl: 3 (Patient not taking: Reported on 06/06/2023) PHYSICAL EXAMINATION: BP 120/64 (BP Site: Left Arm, BP Position: Sitting, BP Cuff Size: Regular Adult) Pulse 83 Ht 154.9 cm (5' 1) Wt 111.1 kg (245 lb) SpO2 92% BMI 46.29 kg/m General: Well appearing, in no acute distress. Skin: No clubbing, no cyanosis. Eyes: Extra ocular movements intact Oropharynx: Teeth in good repair. Neck: No jugular venous distention, no carotid bruits. Lungs: Clear to auscultation bilaterally, no wheezing or rhonchi. Heart: Regular rhythm, PMI not displaced, S1, S2 normal, no S3, no S4, no heaves, no rub and no murmur. Abdomen: Soft, nontender, bowel sounds normal. Extremities: No peripheral edema. Psych: Appropriate mood and affect. Neuro: Oriented to person, place and time, alert, cooperative. CARDIOVASCULAR MEDICINE TESTING: Last ECHO Result Conclusion ECHO Collected: 03/29/2023 1:18 PM (Final result) Impression: CONCLUSIONS: - Technically difficult exam due to post op, bandages/chest tubes/wound, suboptimal positioning and body habitus. - Exam indication: S/p AVR - Grossly normal LV systolic function on very limited views, unable to accurately assess LV function/wall motion with further detail given limited imagin quality - Epic Plus prosthetic aortic valve (size #27). The peak gradient is 19 mmHg, the mean gradient is 9 mmHg and the dimensionless valve index is 0.49. OR Pk/Mn gradients of 16/7 mmHg. - extremely limited acoustic windows. - Exam was compared with the prior echocardiographic exam performed on 03/20/2023. s/p AVR. * * * Final * * * Last EKG Result Conclusion ECG COMPLETE Collected: 04/04/2023 7:44 AM (Preliminary result) Impression: NORMAL SINUS RHYTHM LOW VOLTAGE QRS, CONSIDER PULMONARY DISEASE, PERICARDIAL EFFUSION, OR NORMAL VARIANT CANNOT EXCLUDE ANTERIOR MYOCARDIAL INFARCTION , AGE UNDETERMINED ABNORMAL ECG Last CT Result Conclusion CTA CHEST (GATED) WO/W IVCON Exam End: 11/24/2022 9:39 AM (Final result) Impression: IMPRESSION: 1. Bicuspid, Alec type 0, aortic [...] noncardiac portion was interpreted by Dr. Dario Santiago from [facility] Super[facility]: [facility] Transcribe Date/Time: Nov 24 2022 6:53P Dictated by : VASQUEZ SANTIAGO MD This examination was interpreted and the report reviewed and electronically signed by: VASQUEZ SANTIAGO MD on Nov 28 2022 9:18AM EST . IMPRESSION/PLAN: I35.9 Aortic valve disorder (primary encounter diagnosis) I71.21 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) Z95.4 H/O aortic valve replacement with tissue graft Z95.828 Hx of ascending aorta replacement Comment: Postop echo while still admitted showed a normal valvular function. I recommend a follow-up echo now to fingerprint his valve which she can have done when he establishes with local cardiology. He will maintain aspirin therapy and was cautioned on SBE prophylaxis. He has a follow-up with cardiothoracic surgery next month with a CT of his aorta. Z86.73 H/O ischemic left MCA stroke Comment: Continuing to undergo rehab and follow-up with neurology I97.89, I48.91 Postoperative atrial fibrillation (HCC) Comment: I would like for him to discontinue the amiodarone at this time. Can have a discussion with his new local base cardiology in the future about the potential of discontinuing his DOAC. Kiel Godoy Jankialonso will follow-up as needed. Thank you for allowing me to participate in the care of your patient. Please reach out to me at anytime with questions or concerns. Kiel Barnes MD, MS, [facility] Co-Director, [facility] marine engineering teacher, [facility] of Medicine of [facility] Section of Clinical Cardiology, Department of Cardiovascular Medicine [facility] Heart, Vascular, and Thoracic [facility], [address] [place] [address], [place] [address] Office Office Appointments: [phone] I personally interviewed, confirmed and edited the above information as obtained by others. documented in this encounterPeoples Hospital04-22-2024 Telephone encounter Note * Telephone Encounter - Laurel Adan MA - 06/05/2023 1:46 PM EDT Keep receiving a response through [employer] N/A -resubmitted. Called Jeff and was advised that approved till 02/13/2024. Authorization # [id number] Laurel Adan MA [facility]04-22-2024 Miscellaneous Notes* Telephone Encounter - Laurel Adan MA - 06/05/2023 1:46 PM EDT Keep receiving a response through [employer] N/A -resubmitted. Called Jeff and was advised that approved till 02/13/2024. Authorization # [id number] Laurel Adan MA * Telephone Encounter - Laurel Adan MA - 06/05/2023 12:59 PM EDT Prior Authorization has been completed online at [employer] for Michael, will await response. [id number] Please keep encounter open until final decision has been received and documented from insurance [employer]. Laurel Adan MA documented in this encounterPeoples Hospital04-22-2024 Telephone encounter Note * Telephone Encounter - Laurel Adan MA - 06/05/2023 12:59 PM EDT Prior Authorization has been completed online at [employer] for Michael, will await response. [id number] Please keep encounter open until final decision has been received and documented from insurance [employer]. Laurel Adan MA [facility]04-19-2024 Miscellaneous Notes* Telephone Encounter - Apple Allen RN - 06/02/2023 9:15 AM EDT Abel OT called and notified of verbal order for additional OT visits. Abel voices understanding. Apple Allen RN * Telephone Encounter - Alyson Arthur MD - 06/01/2023 5:00 PM EDT ok * Telephone Encounter - Apple Allen RN - 06/01/2023 3:25 PM EDT Abel OT from [facility] calls and is requesting verbal order for 4 additional occupational therapy visits. Please review and advise, Apple Allen RN documented in this encounterPeoples Hospital04-17-2024 Telephone encounter Note * Telephone Encounter - Tia Arenas RN - 05/31/2023 3:55 PM EDT Reuben, PT @ [facility] calling to let provider know that patient declined a second PT visitthis week. He will be seen again next week. Tia Arenas RN [place] [address]-17-2024 Miscellaneous Notes* Telephone Encounter - Tia Arenas RN - 05/31/2023 3:55 PM EDT Reuben, PT @ [facility] calling to let provider know that patient declined a second PT visitthis week. He will be seen again next week. Tia Arenas RN documented in this encounterPeoples Hospital04-16-2024 Telephone encounter Note * Telephone Encounter - Scott Cabrera RN - 05/30/2023 11:35 AM EDT [employer], phoned to let pcp know, they are applying for a waiver program for patient to have HHAide assistance. [address]16-2024 Miscellaneous Notes* Telephone Encounter - Scott Cabrera RN - 05/30/2023 11:35 AM EDT [employer], phoned to let pcp know, they are applying for a waiver program for patient to have HHAide assistance. documented in this encounterPeoples Hospital04-15-2024 History of Present illness Narrative* Jim Jeffers APRN.GUEST HISTORY CLERK - 05/29/2023 12:53 PM EDT Subjective HPI Nontoxic-appearing male presents urgent care chief complaint right wrist pain. Duration of symptoms3 days. Associated symptoms right wrist discomfort. Patient states had a stroke a couple months agoand has weakness to the right side of his body. States had a friend help him with his physical therapy and felt like he hyperextended his wrist. Presents today for evaluation. Denies any new weakness. No new numbness or tingling. No decrease sensation. No fractures or surgeries to this wrist in thepast. Overall feels well. Denies any fever body aches chills productive cough chest pain shortness of breath pleuritic pain hemoptysis nausea vomiting abdominal pain change in bowel or bladder habits. Past medical history prescription medication use and allergies reviewed. Is currently using a sling from home supply. .Patient presents with: Wrist Pain: right x 3 days, bent back PAST MEDICAL HISTORY Diagnosis Date Acute ischemic left MCA stroke (HCC) 03/22/2023 Anxiety Aortic valve stenosis, nonrheumatic Atrial septal defect and mitral stenosis Bicuspid aortic valve Bipolar 1 disorder ([facility]) Chronic obstructive pulmonary disease (COPD) ([facility]) Coronary artery disease Degenerative disc disease sees Dr. Sellers Diabetic neuropathy (HCC) DM (diabetes mellitus) ([facility]) HTN (hypertension) Hyperkalemia Hyperlipidemia Hypogonadism male LVH (left ventricular hypertrophy) Morbid obesity ([facility]) MANISH on CPAP Pain management Dr. Sellers PAST SURGICAL HISTORY Procedure Laterality Date BACK SURGERY HX fusion- lumbar CARPAL TUNNEL both HEART SURGERY HX 03/20/2023 S/p 03/20/2023 AVR (27 Epic plus) and Ascending repair (28 hemishield) PAST SURGICAL HISTORY OF left shouder surgery PAST SURGICAL HISTORY OF nasal passages clearing for sleep apnea PAST SURGICAL HISTORY OF 02/13/1981 ORIF right ankle PAST SURGICAL HISTORY OF 04/03/2013 left ulnar nerve decompression ALLERGIES Iodinated Contrast Media, Lisinopril, Penicillins, and Flonase [Fluticasone Propionate] MEDICATIONS ondansetron (ZOFRAN) 4 mg tablet^Take 1 tablet by mouth every 8 hours as needed for nausea/vomiting.^Disp: 20 tablet^Rfl: 0 apixaban (ELIQUIS) 5 mg tab(s)^Take 1 tablet by mouth two times a day.^Disp: 60 tablet^Rfl: 11 MULTIVITAMIN-FERROUS FUMARATE-FOLIC ACID 18 MG-400 MCG TABLET^Take 1 tablet by mouth daily with breakfast.^Disp: 30 tablet^Rfl: 11 polyethylene glycol 3350 17 gram packet^Take 1 Packet by mouth once daily. Dissolve dose in 4 - 8 ounces of liquid and take as directed.^Disp: 30 Packet^Rfl: 11 Insulin Syringe-Needle U-100 0.5 mL 29 gauge x 1/2^4 Each once daily.^Disp: 100 Each^Rfl: 11 insulin lispro (HUMALOG U-100 INSULIN) 100 unit/mL injection^Per sliding scale QID^Disp: ^Rfl: traZODone (DESYREL) 50 mg tablet^Take 1 tablet by mouth daily at bedtime.^Disp: 30 tablet^Rfl: 2 Melatonin 5 mg cap^Take by mouth.^Disp: ^Rfl: bumetanide (BUMEX) 1 mg tablet^Take 2 tablets by mouth two times a day.^Disp: 360 tablet^Rfl: 1 amLODIPine (NORVASC) 5 mg tablet^Take 1 tablet by mouth once daily.^Disp: 90 tablet^Rfl: 1 atorvastatin (LIPITOR) 10 mg tablet^Take 1 tablet by mouth daily at bedtime.^Disp: 90 tablet^Rfl: 1 amiodarone (PACERONE) 200 mg tablet^Take 1 tablet by mouth once daily.^Disp: 90 tablet^Rfl: 1 metoprolol tartrate 37.5 mg tab^Take 1 tablet by mouth every 12 hours.^Disp: 180 tablet^Rfl: [address] (PROTONIX) 40 mg tablet^Take 1 tablet by mouth daily before breakfast. Take on empty stomach, 1/2 hr before meal.^Disp: 90 tablet^Rfl: 1 traMADol (ULTRAM) 50 mg tablet^Take 1 tablet by mouth every 6 hours as needed for pain for up to 30days.^Disp: 120 tablet^Rfl: 0 insulin glargine 100 unit/mL (3 mL)^Inject 12 Units subcutaneously once daily.^Disp: 10.8 mL^Rfl: 1 pregabalin (LYRICA) 100 mg capsule^Take 1 capsule by mouth once daily for 90 days.^Disp: 90 capsule^Rfl: 0 Pregabalin (LYRICA) 200 mg capsule^Take 1 capsule by mouth daily at bedtime for 180 days.^Disp: 90 capsule^Rfl: 1 glycerin ADULT suppository^1 Suppository by RECTAL route as needed.^Disp: 25 Each^Rfl: 0 docusate sodium (COLACE) 100 mg capsule^Take 1 capsule by mouth two times a day.^Disp: 180 capsule^Rfl: 1 insulin needles, DISPOSABLE, (PEN NEEDLE) 31 gauge x 5/16^Use one needle per dose. 4per day.^Disp:100 Each^Rfl: 11 acetaminophen (TYLENOL) 650 mg/20.3 mL soln^20.3 mL by ORAL/FEEDING TUBE route every 4 hours as needed for pain. Do not exceed 5 doses in 24 hours.^Disp: ^Rfl: aspirin 81 mg chewable tablet^1 tablet by CORPAK route once daily.^Disp: ^Rfl: guaiFENesin (ROBITUSSIN) 100 mg/5 mL syrup^10 mL by ORAL/FEEDING TUBE route every 6 hours.^Disp: ^Rfl: ipratropium-albuterol (DUONEB) 0.5 mg-3 mg(2.5 mg base)/3 mL nebu^Inhale 3 mL as instructed four times daily.^Disp: ^Rfl: magnesium hydroxide (MOM) 400 mg/5 mL suspension^30 mL by CORPAK route every 6 hours as needed.^Disp: ^Rfl: ammonium lactate (LAC-HYDRIN) 12 % cream^Apply to affected area as needed for dry skin.^Disp: 385 g^Rfl: 3 budesonide-formoterol (SYMBICORT) 80-4.5 mcg/actuation inhaler^Inhale 2 Puffs as instructed two times a day.^Disp: 1 Each^Rfl: 3 PEG 400-propylene glycol (SYSTANE ULTRA) 0.4-0.3 % ophthalmic solution^Use 1 Drop in both eyes three times daily.^Disp: 15 mL^Rfl: 3 propylene glycoL (SYSTANE BALANCE) 0.6 % drop^Use 1 Drop in both eyes daily at bedtime.^Disp: 10 mL^Rfl: 3 albuterol HFA (PROVENTIL HFA, VENTOLIN HFA) 90 mcg/actuation inhaler^Inhale 2 Puffs as instructed every 4 hours as needed for wheezing/shortness of breath.^Disp: 1 Each^Rfl: 0 FAMILY HISTORY Problem Relation Age of Onset Diabetes Father 2011 with pneumonia other (Dementia) Father Heart Mother CABG 4. Diabetes Sister Ischemic Heart Disease Brother other (Myocardial infarc) Brother Fatal [place] No Ocular Disease No Family History Social History Tobacco Use Smoking status: Every Day Packs/day: 0.50 Years: 45.00 Additional pack years: 0.00 Total pack years: 22.50 Types: Cigarettes Smokeless tobacco: Never Vaping Use Vaping Use: Never used Substance Use Topics Alcohol use: Yes Comment: Rarely. 2 beers a year Drug use: No BP 126/68 Pulse 70 Temp 37.1 C (98.8 F) Resp 18 SpO2 93% Review of Systems Constitutional: Negative for chills, fever and malaise/fatigue. HENT: Negative for congestion, ear discharge, ear pain, sinus pain and sore throat. Eyes: Negative for blurred vision, pain, discharge and redness. Respiratory: Negative for cough, hemoptysis, sputum production, shortness of breath, wheezing and stridor. Cardiovascular: Negative for chest pain. Gastrointestinal: Negative for abdominal pain, diarrhea, nausea and vomiting. Musculoskeletal: Positive for joint pain. Negative for falls and myalgias. Skin: Negative for itching and rash. Neurological: Negative for dizziness and headaches. Objective Physical Exam Constitutional: General: He is not in acute distress. Appearance: He is not toxic-appearing. HENT: Head: Normocephalic. Nose: Nose normal. Eyes: Pupils: Pupils are equal, round, and reactive to light. Cardiovascular: Rate and Rhythm: Normal rate. Pulmonary: Effort: Pulmonary effort is normal. No respiratory distress. Musculoskeletal: Right forearm: Normal. Right wrist: Swelling, tenderness and bony tenderness present. No deformity. Normal range of motion. Normal pulse. Right hand: Swelling, tenderness and bony tenderness present. No deformity. Normal range of motion.Normal strength. Normal sensation. Normal capillary refill. Normal pulse. Cervical back: Normal range of motion. Skin: General: Skin is warm and dry. Neurological: General: No focal deficit present. Mental Status: He is alert. ASSESSMENT/PLAN: 1. Wrist pain, acute, right - ICD9: 719.43, ICD10: M25.531 - XR HAND GENERAL 3V PA/LAT/OBL RIGHT - XR WRIST INJURY 4V PA/LAT/OBL/SCAPH RIGHT IMPRESSION: No acute osseous abnormality No acute findings noted on x-ray. Treat as wrist sprain. Continue using sling as needed. Patient was educated on supportive therapies. Patient will follow up with primary care provider 7-10 days if symptoms or not improving patient was instructed to immediately proceed to emergency room for any new, worsening, or symptoms lasting longer than anticipated. The patient's clinical presentation is otherwise unremarkable at this time. Based on exam and clinical finding, the patient is stable for discharge. Plan of care was discussed with patient. Patient verbalizes understanding and agrees to plan of care. This note was generated using d[employer] software. It may contain errors in wording,punctuation, or spelling. Jim Jeffers APRN.TODD documented in this encounterPeoples Hospital04-15-2024 History of Present illness Narrative* Martha Mobley RT(R) - 05/29/2023 12:50 PM EDT Radiology Service Progress Note PATIENT NAME: Kiel Catherine DATE OF SERVICE: May 29, 2023 TIME: 1:00 PM PATIENT IDENTITY VERIFICATION COMPLETED USING TWO (2) IDENTIFIERS: Name and Date of confirmedby patient verbally. FALL SCREENING: Has the patient had 2 falls in the last year or 1 fall with injury or currently using an Ambulatory Assistive Device (Walker, Cane, Wheelchair, Crutches, etc.)? Yes, Patient High Riskfor Falls What interventions were put in place to prevent falls during this visit? Offered Assistance with Transfers/Clothing and did in wheelchair PATIENT GENDER DATA: Male PATIENT RELEVANT IMPLANT DATA REVIEWED: Not Applicable PATIENT PRESENTS WITH AN IMPLANTABLE OR ATTACHED BEE FARMER: No RADIOLOGY DEPARTMENT: General X-ray: Exam(s) Completed: Upper Extremity X- Ray(s): Wrist, right and Hand, right PERIPHERAL IV DATA: Not applicable SIGNED BY: RT Jenny(Moreno) May 29, 2023 1:00 PM documented in this encounterPeoples Hospital04-15-2024 Miscellaneous Notes* Telephone Encounter - Alyson Arthur MD - 05/29/2023 8:30 AM EDT Ok. * Telephone Encounter - Joan Gallardo RN - 05/29/2023 8:06 AM EDT Abel OT with [facility] calls to let provider know there is a delay in start of care for OT assessment per patient request. The plan is to see patient sometime this week to start OT. Joan Gallardo RN documented in this encounterPeoples Hospital04-11-2024 Miscellaneous Notes* Telephone Encounter - Elma Guthrie MA - 05/25/2023 2:38 PM EDT [place] and notified. Elma Guthrie MA * Telephone Encounter - Alyson Arthur MD - 05/25/2023 1:42 PM EDT I am not sure I want him to remain on this jail. I would prefer he begin to taper off the usage of tramadol. Let him know as well. Make sure he is using it prn. Not scheduled. * Telephone Encounter - Janki Vale RN - 05/25/2023 12:52 PM EDT [facility] calling and states they do pill packaging for patient and his current Tramadol orderends in early June. Pharmacy asking if script for May can be sent over early, so they can work on the pill packaging? Thank you. documented in this encounterPeoples Hospital04-11-2024 Telephone encounter Note * Telephone Encounter - Elma Guthrie MA - 05/25/2023 1:35 PM EDT Spoke with nurse. Pt did not go to ER. He no longer complains of pain. Had the very large BM yesterday after he called, one episode of vomiting at the same time. This was after he took the MOM. She said while she was talking to pt, he was drinking a large Mt Dew. Nurse educated pt on when he is constipated, nauseous, and having severe pain what he should do. Also had discussion about making better choices with diet, like no mt dew. Elma Guthrie MA May 25, 2023 1:48 PM [facility]04[facility] Miscellaneous Notes* Telephone Encounter - Elma Guthrie MA - 05/25/2023 1:35 PM EDT Spoke with nurse. Pt did not go to ER. He no longer complains of pain. Had the very large BM yesterday after he called, one episode of vomiting at the same time. This was after he took the MOM. She said while she was talking to pt, he was drinking a large Mt Dew. Nurse educated pt on when he is constipated, nauseous, and having severe pain what he should do. Also had discussion about making better choices with diet, like no mt dew. Elma Guthrie MA May 25, 2023 1:48 PM * Telephone Encounter - Alyson Arthur MD - 05/25/2023 1:03 PM EDT Sent. Did he go to Er yesterday for abd pain? * Telephone Encounter - Tia Arenas RN - 05/25/2023 12:36 PM EDT nurse Prakash @ [facility] calling to let PCP know nursing will be seeing patient for medication management, disease education and wound care of stage 2 pressure ulcer of left gluteal fold measuring 4 cm long x 0.2 cm wide x 0.2 cm deep. She is also requesting medication for nausea. Patient has nausea with one episode of vomiting of yellowish green liquid. She states patient reported to her he had a BM after taking Miralax and MOM and told her it was also yellowish green. If medication prescribed, Drug [facility]. Tia Arenas RN documented in this encounterPeoples Hospital04-11-2024 Telephone encounter Note * Telephone Encounter - Alyson Arthur MD - 05/25/2023 1:03 PM EDT Sent. Did he go to Er yesterday for abd pain? [facility] Tele[facility] encounter Note* Telephone Encounter - Tia Arenas RN - 05/25/2023 12:36 PM EDT nurse Prakash @ [facility] calling to let PCP know nursing will be seeing patient for medication management, disease education and wound care of stage 2 pressure ulcer of left gluteal fold measuring 4 cm long x 0.2 cm wide x 0.2 cm deep. She is also requesting medication for nausea. Patient has nausea with one episode of vomiting of yellowish green liquid. She states patient reported to her he had a BM after taking Miralax and MOM and told her it was also yellowish green. If medication prescribed, [facility]. Tia Arenas RN [facility]04-10-2024 Miscellaneous Notes* Telephone Encounter - Aminah Escudero LPN - 05/24/2023 3:17 PM EDT Patient notified. * Telephone Encounter - Alyson Arthur MD - 05/24/2023 3:02 PM EDT If severe, given recent bowel obstruction-to ER * Telephone Encounter - July Perez LPN - 05/24/2023 2:28 PM EDT calling for pt. Pt was seen in the office 05-22-23 for hospital FU. reports pt having stomach pain at the [facility]. This comes and goes. today it is at a 6 out of 10 on a pain scale. Pt isnauseated, no vomiting. Pt is constipated and has not had a bowel movement for 2 days. Last bm was 05-22-23. Pt is taking Miralax and all other meds he has been instructed to take. asking if thereis anything pt can do the the pain when he has this. July Perez LPN documented in this encounterPeoples Hospital04-10-2024 Miscellaneous Notes* Telephone Encounter - July Perez LPN - 05/24/2023 12:25 PM EDT called for the meds below and wanting them to be sent to [facility]. They will not be in pt's bubble pack. Patient has been identified by name and date of : Yes, Provider Dr. Arthur Date 05/24/23 Time 12:28 pm Spouse phones for refill(s): Requested Prescriptions Pending Prescriptions Disp Refills MULTIVITAMIN-FERROUS FUMARATE-FOLIC ACID 18 MG-400 MCG TABLET 90 tablet 1 Si tablet by CORPAK route daily with breakfast. polyethylene glycol 3350 17 gram packet Si Packet by CORPAK route once daily. Dissolve dose in 4 - 8 ounces of liquid and take as directed. Date of last office visit in primary care: 05/22/2023 Date of next office visit in primary care: 06/23/2023 Please advise. Thank you. July Perez LPN. documented in this encounterPeoples Hospital04-10-2024 Miscellaneous Notes* Telephone Encounter - Laurel Adan MA - 05/24/2023 11:28 AM EDT Daughter advised yes patient was started on this from [place] and is taking as directed [facility] still not recieved Laurel Adan MA * Telephone Encounter - Alyson Arthur MD - 05/24/2023 11:19 AM EDT Just got his med rec from [facility]. Is on eliquis per them which is one that is not showing on our list. Make she is on it. Does he need refills? documented in this encounterPeoples Hospital04-10-2024 Miscellaneous Notes* Telephone Encounter - Aminah Escudero LPN - 05/24/2023 9:16 AM EDT Notified . * Telephone Encounter - Alyson Arthur MD - 05/24/2023 9:04 AM EDT Ok. Keep bowels moving. Continue protonix. Call if any worsens. Uses tramadol just prn. It can cause constipation. * Telephone Encounter - Laurel Adan MA - 05/24/2023 8:58 AM EDT Spoke to Shweta and patient advised having indigestion with reflux. When palpating on stomach has mild pain in middle of stomach, denied vomiting and diarrhea. No fever just nausea. Is taking pantoprazole once daily Laurel Adan MA * Telephone Encounter - Alyson Arthur MD - 05/24/2023 7:57 AM EDT Stomach xray is ok. Check how his stomach is feeling? documented in this encounterPeoples Hospital04-10-2024 Miscellaneous Notes* Telephone Encounter - Laurel Adan MA - 05/24/2023 9:03 AM EDT notified and labs were not fasting but aware will discuss recheck at next visit Laurel Adan MA * Telephone Encounter - July Perez LPN - 05/23/2023 10:05 AM EDT Left a message for pt to call the office and ask to speak to a nurse. July Perez LPN * Telephone Encounter - July Perez LPN - 05/23/2023 10:05 AM EDT ----- Message from Scott Livingston PA-C sent at 05/23/2023 7:59 AM EDT ----- Please advise: Blood sugar was high but hgba1c is still in great range- was this non-fasting? WBC and absolute neutrophil are mildly elevated indicating recent illness- likely from ecent small bowel obstruction. Recheck at next visit If you have questions, either [employer] message us or call the office at [phone] and ask for me. Best regards, Keith Livingston PA-C documented in this encounterPeoples Hospital04-09-2024 Miscellaneous Notes* Telephone Encounter - Elma Guthrie MA - 05/23/2023 3:39 PM EDT Pt notified of medication change * Telephone Encounter - Alyson Arthur MD - 05/23/2023 3:32 PM EDT Changed to trazodone. * Telephone Encounter - Laurel Adan MA - 05/23/2023 12:14 PM EDT Spoke to Shweta who said patient doing medication every night to help with sleep. Aware may be changed please advise new rx so we can let them know Laurel Adan MA * Telephone Encounter - Alyson Arthur MD - 05/23/2023 11:34 AM EDT Check with patient. Are they using sleeping pill daily. I would prefer to taper and stop this one anyway. It is not a great med jail. Also can we make sure we have sent for records from [facility] * Telephone Encounter - Laurel Adan MA - 05/23/2023 7:57 AM EDT Insurance will not pay for BID can do 15 mg 30 per 30 days or would need to switch to formulary options: trazodone tablet, Belsomra tablet AND zolpidem tablet. Laurel Adan MA * Telephone Encounter - Conchita Diaz LPN - 05/22/2023 1:35 PM EDT Electronic PA rec'd and completed for temazepam 7.5mg. documented in this encounterPeoples Hospital04-09-2024 Telephone encounter Note * Telephone Encounter - Fely Cohn LPN - 05/23/2023 1:38 PM EDT Reuben from [facility] calling did PT eval today and plan of care is to continue with 8 PT visits. [facility]04-[facility]24 Miscellaneous Notes* Telephone Encounter - Fely Cohn LPN - 05/23/2023 1:38 PM EDT Reuben from [facility] calling did PT eval today and plan of care is to continue with 8 PT visits. documented in this encounterPeoples Hospital04-09-2024 Miscellaneous Notes* Telephone Encounter - Laurel Adan MA - 05/23/2023 12:04 PM EDT Verified with patient does lantus 12 units daily and Novolog is sliding scale. Verified sliding scale but patient is not doing tube feeding anymore. Went over entire med list and made sure correct Laurel Adan MA * Telephone Encounter - Alyson Arthur MD - 05/23/2023 11:36 AM EDT Verify doses and types of insulin he has at home. We were attempting to reconcile his meds all day yesterday. I have him on NPH and Lantus which are very similar. * Telephone Encounter - Janki Vale RN - 05/23/2023 10:54 AM EDT Pt will needs syringes ordered for his Humulin insulin vials. He is using pens for the Lantus but syringes for the Humulin, per pharmacy. Pended for review. Thank you. * Telephone Encounter - Elma Guthrie MA - 05/23/2023 8:15 AM EDT It looks like they did give lantus vials, so will need syringes as well * Telephone Encounter - Alyson Arthur MD - 05/22/2023 5:23 PM EDT Are they sending syringes or pen. This whole visit is confusing. Not given adequate time and literally all of his meds were not sent with him and we are just going off of lists they have. I have no idea what he is using. * Telephone Encounter - Yoly Murray LPN - 05/22/2023 4:44 PM EDT Kenzie with [facility] calls to report they received rx for both insulins today but need an orderfor syringes and pen needles. Do not know what size syringes pt needs. Please review and advise. Yoly Murray LPN documented in [facility]04-[facility]24 Miscellaneous Notes* Telephone Encounter - Ned Burgess LPN - 05/22/2023 2:43 PM EDT Called [place] Ned Burgess LPN May 22, 2023 2:43 PM * Telephone Encounter - Alyson Arthur MD - 05/22/2023 2:18 PM EDT Once a day prn * Telephone Encounter - Tia Arenas RN - 05/22/2023 2:06 PM EDT [facility] calling to clarify script for Glycerin suppository. Pharmacy needs # of suppositories patient to use per day. Tia Arenas, THOMAS documented in this encounterPeoples Hospital04-08-2024 History of Present illness Narrative* Kervin Judd RT([place]) - 05/22/2023 10:40 AM EDT Radiology Service Progress Note PATIENT NAME: Kiel Catherine DATE OF SERVICE: May 22, 2023 TIME: 10:48 AM PATIENT IDENTITY VERIFICATION COMPLETED USING TWO (2) IDENTIFIERS: Name and Date of confirmedby patient verbally. FALL SCREENING: Has the patient had 2 falls in the last year or 1 fall with injury or currently using an Ambulatory Assistive Device (Walker, Cane, Wheelchair, Crutches, etc.)? No PATIENT GENDER DATA: Male PATIENT RELEVANT IMPLANT DATA REVIEWED: Not Applicable PATIENT PRESENTS WITH AN IMPLANTABLE OR ATTACHED BEE FARMER: No RADIOLOGY DEPARTMENT: General X-ray: Exam(s) Completed: Chest X-Ray Abdomen X-Ray: Abdomen PERIPHERAL IV DATA: Not applicable SIGNED BY: RT Aury(R) May 22, 2023 10:48 AM documented in this encounterPeoples Hospital04-08-2024 Instructions* Patient Instructions* Alyson Arthur MD - 05/22/2023 9:57 AM EDT Follow up with Dr. Alcocer with CTA chest in 3 months (06/27/23). documented in this encounterPeoples Hospital04-08-2024 History of Present illness Narrative* Alyson Arthur MD - 05/22/2023 9:36 AM EDT Patient presents with: Hospital F/U HPI: Patient presents today for office visit for very complicated hospital follow up. HOSPITAL/ER FOLLOW UP: Reason for visit: Went in to [facility] 03/20/23 for heart valve surgery. Suffered stroke during surgery. Which facility: [facility] Date of visit: 03/20/23-04/07/23 Discharged to [facility] rehab 04/07/23. Hospitalized for a couple days at [facility] for bowel obstruction. Diagnosis: Stroke Not all records available([place] records) Patient arrived late to appt and not checked in and in room until over 40 minutes past the appt. Will review records and bring him back in short order when given appropriate and adequate time to be able to evaluate patient fully. Apparently did not send home from rehab with meds. Staff will attempt to update meds through morning so that we can perform a med rec and I can refill meds as appropriate. Corpak is out. He is eating currently. Bowels are moving. Skin issues are now resolved. See below regarding his stroke. [facility] is to come soon. We believe they will be starting therapy. Just discharged from [facility] on Monday. They apparently did an xray and they did labs that showed ? Elevated white count. Prior to discharge His stomach is swollen and feels like he is going to throw up. It is not nearly as bad as when he was obstructed. His stomach does not feel right. No urinary issues. No chest pain or worsening shortness of breath. Apparently is on both sleeping meds and pain pills. Will continue meds for now. Has appt to see art class model in [facility] this Monday so will hold on EKG today as recommended below. See previous discharge summary: [facility] Primary Fire Fighter: Kiel Barnes MD, MS, [facility] Admission Diagnosis: Aorta Aneurysm Aortic Valve Stenosis Discharge Diagnosis: Aorta Aneurysm Aortic Valve Stenosis Reason for Hospitalization: Per [facility] note Mr. Catherine is a 62 year old male who is seen for cardiovascular medicine evaluation. He has planned aortic valve replacement for severe stenosis in the setting of bicuspid aortic valve next week. Heis limited on physical exertion secondary to shortness of breath and orthopedic back pain. Operations during Hospitalization: 03/20/2023: AVR (27 [facility]) and Ascending repair (28 [facility]) Hospital Course: * How was the Reason for Hospitalization Addressed: Indication for Surgery: Aorta Aneurysm and Aortic Valve Stenosis Admit 03/20/23 Preop LVEF: 55% RVF: Normal Cards: Kiel Barnes EKG: NSR Cath: Mild CAD Postop LVEF: Normal RVF: Normal PMH/PSH: BAV, , CAD, HTN, HPL, Moderate pulmonary HTN, T2DM, COPD, MANISH on CPAP, Morbid obesity, 1PPD current smoker, Bipolar 1, chronic back pain/degenerative disc disease (sees pain management), s/p lumbar fusion Preoperative Hospital Course: 62 yo male with PMH significant for morbid obesity, DM type II, COPD,coronary artery disease, bipolar 1 disorder, HTN, HLD, MANISH on CPAP, and known bicuspid aortic stenosis. He had a recent TTE on 09/30/22, and though the images are poor due to body habitus he did have findings of severe aortic stenosis with peak gradient of 76, mean gradient 39 DI 0.23, and aortic valve area of 1.0. He was recently admitted to [facility] for a blister on the anterior right lower extremity over the tibia which had popped causing an open wound, and TTE done at the hospital demonstrated findings more consistent with moderate aortic stenosis. The patient also saw a podiatristwho debrided his noninfected right tibial wound and ordered PVRs, which are pending. Airway Difficulty: Grade I - No special instrumentation Pacing Wires: Removed 03/22/23 Surgeries and Major Events: 03/20/2023: AVR (27 Epic plus) and Ascending repair (28 hemishield) A/P of Major Active Problems: S/p AVR, ascending repair: ASA. Post op echo 03/29: gradient 19/9, limited views, normal LV w/ limited views. CTA in 3 months Chronic diastolic HF/Cardiac insufficiency post op: (On Cardizem, carvedilol, furosemide, losartan at home). Required Epi infusion to assist separation from CPB. Weaned off. Floor: Restarted po lasix. HTN: (On losartan and carvedilol at home). Requred NTG post op, weaned off. BP is currently controlled on Norvasc, Metoprolol. Losartan was stopped d/t hyperkalemia. Monitor BP trends HLD: (home lipitor 10mg). Restarted, trend LFTs. Afib: New onset afib RVR evening of 03/22. Amio bolus and gtt. Currently in SR. Amio transitioned to PO on 03/24. No further events. EKG 04/01 QTc 450 Chronic back pain + acute post op pain: On diclofenac, lyrica, oxycodone myristate and tizanadine at home. Seen by Chronic pain management. On Lidoderm patches, Oxycodone scheduled 10mg tid + 5mg q 6hrs prn (dose adjusted to mimic preop oxycodone myristate). Lyrica resumed at preop dose, Tylenol L MCA stroke: Right facial droop noted POD1 post extubation. 2 CLOT activated, CT brain with L posterior MCA territory acute to subacute infarct. CTA head/neck- no large vessel occlusion. ASA and statin. Repeat CTH 03/23 stable. Neuro stroke signed off. No further imaging needed. Follow up scheduled 04/06/23. On 03/29 per family right side seemed weaker. Reconsulted Neurology, repeat CTH was completed and reviewed by Neuro as stable. Per neuro, is possible to have some fluctuation in symptoms, especially in times of physiologic stress. 03/31: noted by PT/OT to have no R arm/hand movement, increased overall weakness, unable to move R arm/fingers as was able on Monday 03/27. Spoke to Neurology who evaluated pt at bedside and found stable neurologic findings compared to prior. 04/01: Called Neurology to re-evaluate due to concern that he was using the R arm earlier in the week but now not able (as noted by family member). Per Neurology, repeat CTH was completed 04/01 showed Evolving left MCA territory infarct. Punctate cortical hyperdensity may represent a tiny focus of petechial hemorrhagic transformation. Per Neurology, CT does not explain R arm weakness. EEG was completed showing mild cortical dysfunction left hemisphere, no EEG seizures. Recommend MRI brain and cervical spine WO but was not completed as pt is unable lie flat d/t chronic back pain. Spoke to Neurology 04/05, recommending CT cervical spine WO contrast demonstrated Multilevel variable up to severe RI GHT neural foraminal narrowing at C6-7 - NSGY Spine Consulted, no surgical interventions, signed off R upper extremity swelling: Improving. Ultrasound Acute superficial thrombophlebitis in the cephalic vein antecubital fossa to wrist. Acute superficial thrombophlebitis in the median cubital vein Atelectasis/plerual effusion- Continue to encourage PEP/BPH, OOB, PT/OT. On room air. 04/04 CXR small left pleural effusion and adjacent atelectasis/consolidation. No definite pneumothorax. Currently has mild LE edema and generalized swelling. Restarted low dose po lasix. COPD/Current smoker (1PPD): (On Symbicort and albuterol HFA prn at home). Continue scheduled mucomyst, Pulmicort, and duonebs. + couph, rhonchi, secretions. Added robitussin. MANISH: CPAP HS and prn. Hypervolemia- inaccurate weights as unable to obtain standing wt, monitor diuretic need. Hypernatremia- Resolved, Na++, currently in normal range. Malnutrition/ aspiration risk / Dysphagia: TELEVISION MECHANIC consulted ->Failed swallow eval-> Corpak placed on 03/23, TF started. Evaluated by ENT 03/29: flexible laryngoscopy showed pooling of secretions in hypopharynx with skip aspiration, but bilateral TVC mobile and medialize well with phonation. No indication for injection medialization or other procedural intervention from ENT perspective, cont swall ow therapy w/ speech. 04/03 passed MBS L2 Mildly ([place]) Thick Liquids / L5 Minced and Moist Solids, continue corpak/TF at night until taking adequate PO GERD: (On famotidine and pantoprazole at home). Continue PPI. Urology: + scrotal swelling. C/o scrotal pain, Urology evaluated, non-concerning exam. Elevate scrotum to help reduce edema T2DM: (On metformin, glimepiride, Lantus, Trulicity at home). Hgb A1c 6.5%. Required high doses of insulin post op. Endocrine follows. Leukocytosis: WBC reached 20.59 post op. UA neg. Now normalized. DTI Coccyx: evaluated by wound care, unstageable Discharge: 62 yr old male from [place], [place]. PT/OT/PMR recommend acute rehab. -AR planning, CM is working on facility and precert. Per PMR, currently has corpak-- AR may want alternate tube feed access prior to rehab. Stroke follow up (re-sent new request as pt is still in house for 04/06 appt). Follow up with Dr. Alcocer with CTA chest in 3 months (06/27/23). Discharge Planning: Anticipated Discharge Date: 04/07 ? Barriers to Discharge: Other: AR placement, CT cervical, started diet, monitor intake and ability to remove corpak Care Management Discharge Needs: * What were the Active Issues: See Above * Surgical Pathology/Microbiology: A. Aortic valve, excision - Bicuspid semilunar valve with severe calcification and severe fibrosis (gross examination only). B. Aorta, partial excision: -Atherosclerosis (grade of the [place] [employer]). * Hospital Course Complicated by: see above * Extended Hospital Stay Due to: see above * Specific Medication Changes: see medication list * Pain: controlled on current regimen * Surgical Incisions/Wounds: clean, dry, intact * Patient Condition at Discharge: Improved * Disposition: Acute Rehabilitation Facility Problem List: Patient Active Hospital Problem List: Encounter for support and coordination of transition of care (03/25/2023) Atelectasis (03/22/2023) Mild CAD () Dilatation of aorta (HCC) () Postoperative pain () Hypervolemia (03/21/2023) Hypernatremia (03/25/2023) Restrictive lung disease (11/12/2010) MANISH on CPAP (11/09/2012) Bicuspid aortic valve (11/09/2012) Hyperlipidemia (11/09/2012) Hypertension (11/09/2012) Bipolar 1 disorder (HCC) (11/09/2012) Morbid obesity with BMI of 50.0-59.9, adult ([facility]) (11/09/2012) LVH (left ventricular hypertrophy) () Severe aortic stenosis (08/10/2018) GERD without esophagitis (10/23/2021) Peripheral vascular disease ([facility]) (12/06/2022) Chronic back pain (09/28/2022) Chronic obstructive pulmonary disease ([facility]) (10/11/2022) Class 3 severe obesity with body mass index (BMI) of 50.0 to 59.9 in adult ([facility]) (02/21/2023) Discharge planning issues (03/16/2023) Chronic diastolic heart failure ([facility]) (03/16/2023) Dysphagia (03/22/2023) Arterial ischemic stroke, MCA (middle cerebral artery), left, acute ([facility]) (03/22/2023) Open wound of left great toe (03/22/2023) Alteration in skin integrity due to moisture (03/22/2023) Skin tear of upper extremity (03/22/2023) Pressure injury of sacral region, unstageable ([facility]) (03/22/2023) Impaired gait and mobility (03/24/2023) Right arm weakness (03/24/2023) Coordination impairment (03/24/2023) Alteration in self-care ability (03/24/2023) Insulin dose changed ([facility]) (03/24/2023) Type 2 diabetes mellitus with hyperglycemia, with long-term current use of insulin ([facility]) (03/24/2023) Nicotine use disorder, F17.2 (03/27/2023) Dysarthria (03/27/2023) Primary sleep apnea of (03/28/2023) Pressure injury of coccygeal region, unstageable ([facility]) (04/03/2023) Cognitive communication deficit (04/04/2023) Slurred speech (04/05/2023) Right hemiparesis ([facility]) (04/05/2023) On tube feeding diet (04/06/2023) Consults: Endocrinology, Cardiology, PM&R, Wound care, Stroke Neurology , ENT Procedures Performed and Major Radiology: CT brain WO 03/21, 03/23, 03/29, 04/01 CTA head/neck 03/21 Bronchoscopy 03/21 EEG Echocardiogram 03/29 Right upper extremity ultrasound Modified barium swallow CT Neck Information Provided to the Patient: Patient given copy of After Visit Summary which included activity instructions, diet instructions, wound care instructions, medication instructions and follow up appointment. Transitions of Care Critical Issues: Outpatient Management: Follow-Up: Please take all of your discharge paperwork with you to your follow-up appointments. 1. Follow up with your Primary Care Physician within 7-10 days of discharge from rehab facility. Werecommend that your follow up provider order the following lab work (CBC, CMP), CXR and EKG and discuss the results with you. 3. Follow up with your Fire Fighter within 4 weeks. Mr. Catherine was offered an appointment with a [facility]. He accepted and a follow up appointment was requested with Dr. Juan Carlos Arredondo on 06/05/2023. 4. Follow up with Stroke Neurology . An appointment was requested for 2-4 weeks. 5. Follow up with Dr. Alcocer in [address] scan of the aorta. 06/27/23 MEDICATIONS: Current Outpatient Medications Medication Sig acetaminophen (TYLENOL) 650 mg/20.3 mL soln 20.3 mL by ORAL/FEEDING TUBE route every 4 hours as needed for pain. Do not exceed 5 doses in 24 hours. amiodarone (PACERONE) 200 mg tablet 1 tablet by CORPAK route once daily. amLODIPine (NORVASC) 5 mg tablet 1 tablet by CORPAK route once daily. aspirin 81 mg chewable tablet 1 tablet by CORPAK route once daily. atorvastatin (LIPITOR) 10 mg tablet 1 tablet by ORAL/FEEDING TUBE route daily at bedtime. dextrose (TRUEPLUS) 15 gram/32 mL oral gel Take 32 mL by mouth as needed. docusate (COLACE) 10 mg/mL liqd 10 mL two times a day. furosemide (LASIX) 40 mg tablet 1 tablet two times a day. guaiFENesin (ROBITUSSIN) 100 mg/5 mL syrup 10 mL by ORAL/FEEDING TUBE route every 6 hours. heparin 5,000 unit/mL injection Inject 1 mL subcutaneously every 8 hours. insulin NPH injection Inject 38 Units subcutaneously once daily. Insulin to be given at the start of tube feeds. Hold insulin if tube feeds stopped or discontinued. Hold if glucose below 100.If bloodglucose is less than 70 mg/dL implement hypoglycemia treatment orders and notify provider. insulin glargine 100 unit/mL (3 mL) Inject 16 Units subcutaneously once daily. At 5pm. If patient is taking nothing by mouth, or if enteral or parenteral nutrition is stopped, call provider to obtainupdated basal insulin orders. If blood glucose is less than 70 mg/dL implement hypoglycemia treatment orders and notify provider. DO NOT MIX with other insulins. Each insulin pen must be used for a single patient only. Inject for 10 seconds. insulin lispro (HUMALOG U-100 INSULIN) 100 unit/mL injection Inject 5 Units subcutaneously three times a day with meals. Hold if not eating a meal insulin lispro (HUMALOG U-100 INSULIN) 100 unit/mL injection Humalog scale 2 with meals If Blood Glucose (mg/dL) is <110 Give 0 units 111-150 Give 0 units 151-200 Give 2 unit 201-250 Give 4 units 251-300 Give 6 units 301-350 Give 8 units 351-400 Give 10 units >400 Give 10 units and Call physician. ipratropium-albuterol (DUONEB) 0.5 mg-3 mg(2.5 mg base)/3 mL nebu Inhale 3 mL as instructed four times daily. lidocaine (SALONPAS) 4 % patch Apply 1 Patch as directed once daily. APPLY TO: BUTTOCKS - Remove patch after 12 hours. lidocaine (SALONPAS) 4 % patch Apply 2 Patches as directed once daily. APPLY TO: CHEST - Remove patch after 12 hours. magnesium hydroxide (MOM) 400 mg/5 mL suspension 30 mL by CORPAK route every 6 hours as needed. metoprolol tartrate, short acting, 37.5 mg tab 1 tablet by CORPAK route every 12 hours. MULTIVITAMIN-FERROUS FUMARATE-FOLIC ACID 18 MG-400 MCG TABLET 1 tablet by CORPAK route daily with breakfast. polyethylene glycol 3350 17 gram packet 1 Packet by CORPAK route once daily. Dissolve dose in 4 - 8ounces of liquid and take as directed. pregabalin (LYRICA) 100 mg capsule 1 capsule by CORPAK route two times a day for 90 days. pregabalin (LYRICA) 200 mg capsule 1 capsule by CORPAK route daily at bedtime for 90 days. sennosides (SENNA) 8.8 mg/5 mL oral liquid 5 mL by CORPAK route two times a day. zinc oxide (DESITIN) 13 % crea Apply to affected area two times a day. FOR EXTERNAL USE ONLY APPLY TO: perianal, coccyx and bilateral ischium BID and as needed. Cover with dry dressing and change dressing as needed. ammonium lactate (LAC-HYDRIN) 12 % cream Apply to affected area as needed for dry skin. budesonide-formoterol (SYMBICORT) 80-4.5 mcg/actuation inhaler Inhale 2 Puffs as instructed two times a day. pantoprazole DR (PROTONIX) 40 mg tablet Take 1 tablet by mouth daily before breakfast. Take on empty stomach, 1/2 hr before meal. PEG 400-propylene glycol (SYSTANE ULTRA) 0.4-0.3 % ophthalmic solution Use 1 Drop in both eyes three times daily. propylene glycoL (SYSTANE BALANCE) 0.6 % drop Use 1 Drop in both eyes daily at bedtime. albuterol HFA (PROVENTIL HFA, VENTOLIN HFA) 90 mcg/actuation inhaler Inhale 2 Puffs as instructed every 4 hours as needed for wheezing/shortness of breath. Current Facility-Administered Medications Medication Dose Route Frequency sodium chloride 0.9 % (flush) 10 mL (BD POSIFLUSH) 10 mL INTRAVENOUS DIRECTED PRN ALLERGIES: ALLERGIES Allergen Reactions Iodinated Contrast * GI Upset, Other: See Comments Hypotension, temporary SOB Lisinopril Other: See Comments Hyperkalemia Penicillins Rash Flonase [Fluticason* Other: See Comments Nose bleeds PAST MEDICAL HISTORY Diagnosis Date Acute ischemic left MCA stroke ([facility]) 03/22/2023 Anxiety Aortic valve stenosis, nonrheumatic Atrial septal defect and mitral stenosis Bicuspid aortic valve Bipolar 1 disorder ([facility]) Chronic obstructive pulmonary disease (COPD) ([facility]) Coronary artery disease Degenerative disc disease sees Dr. Sellers Diabetic neuropathy ([facility]) DM (diabetes mellitus) ([facility]) HTN (hypertension) Hyperkalemia Hyperlipidemia Hypogonadism male LVH (left ventricular hypertrophy) Morbid obesity ([facility]) MANISH on CPAP Pain management Dr. Sellers PAST SURGICAL HISTORY Procedure Laterality Date BACK SURGERY HX fusion- lumbar CARPAL TUNNEL both HEART SURGERY HX 03/20/2023 S/p 03/20/2023 AVR (27 Epic plus) and Ascending repair (28 hemishield) PAST SURGICAL HISTORY OF left shouder surgery [...] Disease Brother other (Myocardial infarc) Brother Fatal [place] No Ocular Disease No Family History Social History Tobacco Use Smoking status: Every Day Packs/day: 0.50 Years: 45.00 Additional pack years: 0.00 Total pack years: 22.50 Types: Cigarettes Smokeless tobacco: Never Vaping Use Vaping Use: Never used Substance Use Topics Alcohol use: Yes Comment: Rarely. 2 beers a year Drug use: No Reviewed current medications, allergies, past medical history, surgical history, family history andsocial history today. REVIEW OF SYSTEMS All other reviewed and negative other than HPI. VITALS: BP 151/74 Pulse 106 Last 4 Encounter Wt Readings: Date: Wt: 03/16/2023 128.4 kg (283 lb) 03/02/2023 124.3 kg (274 lb 0.5 oz) 02/27/2023 130.2 kg (287 lb) 12/19/2022 128.5 kg (283 lb 3.2 oz) PHYSICAL EXAMINATION: General appearance: Well appearing, alert, in no acute distress, well-hydrated, well nourished. andwheelchair. Skin: Skin color, texture, turgor normal, no suspicious rashes or lesions Lungs: Lungs clear to auscultation. No wheezing, rhonchi, rales Heart: RRR without murmur, gallop, or rubs. No ectopy Abdomen: bowels sounds positive. Soft, mild left sided abd discomfort. No rebound or guarding. No masses. Extremities: one plus edema. No redness or warmth. Slurred speech with slight facial droop. Right sided weakness of upper extremity. ASSESSMENT/PLAN: 1. Small bowel obstruction (HCC) - ICD9: 560.9, ICD10: K56.609 (primary diagnosis) - get old records. All I have is patient's description. No follow up with gi or surgeon is done. Red flags for re-assessment reviewed with patient in detail. Get kub. - XR ABDOMEN 1V SUPINE 2. Right hemiparesis (HCC) - ICD9: 342.90, ICD10: G81.91 - follow with neuro Continue therapies - CONSULT TO NEUROLOGY 3. Slurred speech - ICD9: 784.59, ICD10: R47.81 - as above. I am assuming speech therapy is ordered but waiting on records. - CONSULT TO NEUROLOGY 4. Mild CAD - ICD9: 414.00, ICD10: I25.10 - as above. - AMIODARONE 200 MG TABLET - METOPROLOL TARTRATE 37.5 MG TABLET - CONSULT TO NEUROLOGY 5. Dysarthria - ICD9: 784.51, ICD10: R47.1 -as above. - CONSULT TO NEUROLOGY 6. Arterial ischemic stroke, MCA (middle cerebral artery), left, acute (HCC) - ICD9: 434.91, ICD10:I63.512 - continue meds. With much work, staff was able to piece through what meds he was to be taking on discharge. - ATORVASTATIN 10 MG TABLET - AMIODARONE 200 MG TABLET - METOPROLOL TARTRATE 37.5 MG TABLET - CONSULT TO NEUROLOGY 7. Dilatation of aorta (HCC) - ICD9: 447.70, ICD10: I77.819 -as above. - ATORVASTATIN 10 MG TABLET - AMIODARONE 200 MG TABLET - METOPROLOL TARTRATE 37.5 MG TABLET 8. Type 2 diabetes mellitus with hyperglycemia, with long-term current use of insulin (HCC) - ICD9:250.00, 790.29, V58.67, ICD10: E11.65, Z79.4 - as above. - ATORVASTATIN 10 MG TABLET - CBC + DIFF - COMP METABOLIC PANEL - HGB A1C 9. Pressure injury of coccygeal region, unstageable (HCC) - ICD9: 707.03, 707.25, ICD10: L89.150 - apparently is healed 10. Pleural effusion - ICD9: 511.9, ICD10: J90 - recheck - XR CHEST 2V FRONTAL/LAT 11. Chronic insomnia - ICD9: 780.52, ICD10: F51.04 -as above - TEMAZEPAM 7.5 MG CAPSULE 12. Primary hypertension - ICD9: 401.9, ICD10: I10 - Worsening control - Continue current medications - at time of visit, we were unsure what meds he was even taking. Will get records and bring him back for adequate amount of time for visit. - BUMETANIDE 1 MG TABLET - AMLODIPINE 5 MG TABLET 13. Bicuspid aortic valve - ICD9: 746.4, ICD10: Q23.1 - AMIODARONE 200 MG TABLET - METOPROLOL TARTRATE 37.5 MG TABLET 14. GERD without esophagitis - ICD9: 530.81, ICD10: K21.9 - PANTOPRAZOLE 40 MG TABLET,DELAYED RELEASE 15. Chronic back pain, unspecified back location, unspecified back pain laterality - ICD9: 724.5, 338.29, ICD10: M54.9, G89.29 - TRAMADOL 50 MG TABLET - PREGABALIN 100 MG CAPSULE - PREGABALIN 200 MG CAPSULE 16. Chronic diastolic heart failure (HCC) - ICD9: 428.32, ICD10: I50.32 - stable. 17. Paroxysmal atrial fibrillation (HCC) - ICD9: 427.31, ICD10: I48. As above. 18. Acute ischemic left MCA stroke (HCC) - ICD9: 434.91, ICD10: I63.512 -as above. 19. Acute embolism and thrombosis of superficial vein of right arm - ICD9: 453.81, ICD10: I82.611 - apparently had while in hospital and is better. Alyson Arthur MD [facility] Discharge Instructions Thank you for allowing [facility] to assist you with your healthcare needs. The following is importantdischarge information regarding your hospital visit. 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 05/26/2023 01:30 PM EDT [facility] Follow Up Appointments Follow Up with KIRK BARCENAS MD When 05/26/2023 01:30 PM EDT Why: Cardiology - Where: [address] [place] [address]- Follow Up with ALYSON ARTHUR MD When 05/22/2023 09:00 AM EDT Why: Take Discharge Instructions to Dr Gonzalez - Where: [facility] [address] [place] [address]- [phone] Follow Up with RICHARD ARSHAD MD, Surgery When Only if needed Why: General Surgeon - Where: [address] [facility] [address] [place] [address]- [phone] The Following Activity and Diet Have Been Ordered for You Discharge Activity - Ordered -- As instructed by therapy, Shower with assistance - Apply antiembolism stockings on AM/off PM daily, this will help promote circulation - Incentive spirometer 10/hr while awake, be sure to take deeps breaths - Seating cushion while sitting -, 05/20/23... Discharge Activity - Ordered -- Activity As Tolerated, 05/20/23 13:16:00 EDT Discharge Driving Restrictions - Ordered -- Must complete driving evaluation, [employer] [phone] [employer] [phone] [employer] Eval [phone], and must be cleared by a physician -, 05/20/23 13:16:00 EDT Discharge Diet - Ordered -- Type of Diet: Regular, No concentrated sweets, no sugar - Low salt -, 05/20/23 13:16:00 EDT Discharge Dietary Supplement - Ordered -- Glucerna Shake, and/or Magic cup, daily, if desired for additional protein - The Following Equipment Has Been Ordered for You Discharge Home Equipment Discharge Blood Glucose Monitoring - Ordered -- When to Test: Before each meal, Keep a log and take to follow up PCP appointment - Discharge Communication Order - Ordered -- Stuart water protocol as instructed -, 05/20/23 13:16:54 EDT Discharge Home Equipment - Ordered -- *Other specify in special instructions, 99 month(s), Wheelchair Brake Extenders, 05/03/23 10:43:00 EDT Discharge Home Equipment - Ordered -- Bedside commode, ADL Limitiation: Room confined, 99 month(s), Drop Arm Bariatric, patient hip width 26 accross. Provided by [employer] [phone], 05/18/23 11:47:00 EDT Discharge Home Equipment - Ordered -- Semi-electric hospital bed; HALF rails, 99 month(s), Provided by [facility] [phone], 05/18/23 11:48:00 EDT Discharge Wound Care - Ordered -- Coccyx: Cleanse with soap and water, apply triad cream 3/day and as needed -, 05/20/23 13:16:00 EDT The Following Treatments Have Been Ordered for You Discharge Labs No qualifying data available. Discharge Radiology No qualifying data available. Other Therapies Discharge Blood Glucose Monitoring - Ordered -- When to Test: Before each meal, Keep a log and take to follow up PCP appointment - Post Acute Orders Discharge Skin Breakdown Prevention - Ordered -- When to Check Skin: Every two hours, Elevate your heels while in bed, turn and reposition yourself while in bed, redistribute your weight while sitting up - Report any skin changes you notice - Discharge Weight Order - Ordered -- When to Weigh: Everyday, Report any changes of 2 lbs in 24 hours or 5 lbs in 1 week to your Physician - Someone Will Contact You Regarding These Home Health Referrals Consult Home Health - Aide - Ordered -- 05/20/23 13:16:00 EDT, Aide Reason: Bathing assistance Consult Home Health - OT - Ordered -- 05/20/23 13:16:00 EDT, Home Therapy Order: OT Eval & Treat, Home Therapy Instruction: Full weight bearing, Reason: Post stroke/TIA Consult Home Health - PT - Ordered -- 05/20/23 13:16:00 EDT, Home Therapy Order: PT Eval & Treat, Reason: Post stroke/TIA, Home Therapy Instruction: Full weight bearing, Provided by [facility] [phone] Consult Home Health - RN - Ordered -- 05/20/23 13:16:00 EDT, Reason: Disease management Medication management Consult Home Health - Speech Therapy - Ordered -- 05/20/23 13:16:00 EDT, Home Therapy Order: Speech Eval & Treat, Reason: Cognitive assessment Allergies Flonase (Nosebleed) penicillin (Rash) Medications Please ask your primary doctor or pharmacist before taking any other medication not listed, including over the counter drugs, herbal medications, vitamins and or supplements as they may interact withyour home medications. What How Much When Instructions Last Dose New bumetanide (bumetanide 1 mg oral tablet) 2 tab(s) by mouth Two (2) times a day Pickup at [facility] New docusate-senna (Senokot S 50 mg-8.6 mg oral tablet) 2 tab(s) by mouth Two (2) times a day Pickup at [facility] New glycerin (glycerin adult rectal suppository) 1 suppository(ies) in the rectum Every day as needed for Constipation New magnesium hydroxide (Milk of Magnesia) 30 Milliliter by mouth Daily at bedtime as needed for Constipation New melatonin 5 Milligram by mouth Daily at bedtime New miconazole topical (Desenex 2% topical powder) 1 application Topical Two (2) times a day Pickup at [facility] New traMADol (traMADol 50 mg oral tablet) 1 tab(s) by mouth Every 4 hours as needed for Pain, scale 1-6 Changed docusate (Colace 100 mg oral capsule) 1 cap by mouth Two (2) times a day as needed for Constipation Changed insulin glargine (Lantus 100 units/ mL10 ml vial solution) 12 unit(s) Subcutaneous (INT) Daily before supper Pickup at [facility] Changed insulin isophane (NPH) (insulin isophane (NPH) human recombinant 100 units/ mL subcutaneoussuspension) 38 unit(s) Subcutaneous Every day Pickup at [facility] Changed pantoprazole (pantoprazole 40 mg oral enteric coated tablet) 40 Milligram by mouth Once a day Pickup at [facility] Changed polyethylene glycol 3350 (Miralax Powder Packet) by mouth Once a day as needed for Constipation Changed polyethylene glycol 3350 (polyethylene glycol 3350 oral powder for reconstitution) 17 gram(s) by mouth Every day Changed zinc oxide topical (zinc oxide 13% topical cream) 1 application Topical Two (2) times a day Pickup at [facility] Unchanged acetaminophen (acetaminophen 650 mg oral tablet, extended release) 1 tab(s) by mouth Two (2) times a day as needed for as needed for pain Unchanged albuterol (albuterol MDI (90 mcg/ inh) CFC free inhalation aerosol) 2 puff(s) by inhalation Every 4 hours as needed for as needed for wheezing Pickup at [facility] Unchanged amiodarone (amiodarone 200 mg oral tablet) 1 tab(s) by mouth Once a day Pickup at [facility] Unchanged amLODIPine (amLODIPine 5 mg oral tablet) 1 tab(s) Nasogastric Once a day Pickup at [facility] Unchanged apixaban (apixaban 5 mg oral tablet) 1 tab(s) by mouth Two (2) times a day Pickup at [facility] Unchanged atorvastatin (atorvastatin 10 mg oral tablet) 1 tab(s) by mouth Daily at bedtime Pickup at [facility] Unchanged budesonide-formoterol (Symbicort 80 mcg-4.5 mcg/ inh Inhaler) 2 puff(s) by inhalation Two (2) times a day Pickup at [facility] Unchanged guaiFENesin (guaiFENesin 100 mg/ 5 mL oral liquid) 10 Milliliter by mouth Every 6 hours as needed for as needed for cough Unchanged metoprolol (metoprolol tartrate 37.5 mg oral tablet) 1 tab(s) by mouth Two (2) times a day Pickup at [facility] Unchanged multivitamin with minerals (Centrum) 1 tab(s) by mouth Once a day Unchanged pregabalin (pregabalin 100 mg oral capsule) 1 cap by mouth Two (2) times a day Unchanged pregabalin (pregabalin 200 mg oral capsule) 1 cap by mouth Daily at bedtime Unchanged temazepam (Restoril 7.5 mg oral capsule) 2 cap by mouth Daily at bedtime as needed for Sleep Pharmacy Information [facility]: [address] [place], [place] [phone] What How Much When Comments Stop Taking ammonium lactate topical (ammonium lactate 12% topical cream) 1 application Topical As needed for as needed dry skin Stop Taking furosemide (furosemide 40 mg oral tablet) 1 tab(s) by mouth Two (2) times a day Stop Taking insulin lispro (HumaLOG) (insulin lispro (Humalog) 100 units/ mL injectable solution) Sliding Scale Subcutaneous Three (3) times a day with meals Stop Taking senna (senna (sennosides) 8.8 mg/ 5 mL oral syrup) 5 Milliliter by mouth Two (2) times a day Please take this list to your next doctor s visit. Bring all medications you take, including over the counter medications, herbals and other supplements with you to your doctor s visit. Patients and families are reminded to discard old lists and to update any records with all medication providers or retail pharmacies. Education Materials Fall Prevention in the Home, Adult Falls can cause injuries. They can happen to people of all ages. There are many things you can do to make your home safe and to help prevent falls. Ask for help when making these changes, if needed. What actions can I take to prevent falls? General Instructions Use good lighting in all rooms. Replace any light bulbs that burn out. Turn on the lights when you go into a dark area. Use night-lights. Keep items that you use often in mfws-if-mtgeo places. Lower the shelves around your home if necessary. Set up your furniture so you have a clear path. Avoid moving your furniture around. Do not have throw rugs and other things on the floor that can make you trip. Avoid walking on wet floors. If any of your floors are uneven, fix them. Add color or contrast paint or tape to clearly morgan and help you see: ? Any grab bars or handrails. ? First and last steps of stairways. ? Where the edge of each step is. If you use a stepladder: ? Make sure that it is fully opened. Do not climb a closed stepladder. ? Make sure that both sides of the stepladder are locked into place. ? Ask someone to hold the stepladder for you while you use it. If there are any pets around you, be aware of where they are. What can I do in the bathroom? Keep the floor dry. Clean up any water that spills onto the floor as soon as it happens. Remove soap buildup in the tub or shower regularly. Use non-skid mats or decals on the floor of the tub or shower. Attach bath mats securely with double-sided, non-slip rug tape. If you need to sit down in the shower, use a plastic, non-slip stool. Install grab bars by the toilet and in the tub and shower. Do not use towel bars as grab bars. What can I do in the bedroom? Make sure that you have a light by your bed that is easy to reach. Do not use any sheets or blankets that are too big for your bed. They should not hang down onto thefloor. Have a firm chair that has side arms. You can use this for support while you get dressed. What can I do in the kitchen? Clean up any spills right away. If you need to reach something above you, use a strong step stool that has a grab bar. Keep electrical cords out of the way. Do not use floor romansh or wax that makes floors slippery. If you must use wax, use non-skid floor wax. What can I do with my stairs? Do not leave any items on the stairs. Make sure that you have a light switch at the top of the stairs and the bottom of the stairs. If you do not have them, ask someone to add them for you. Make sure that there are handrails on both sides of the stairs, and use them. Fix handrails that are broken or loose. Make sure that handrails are as long as the stairways. Install non-slip stair treads on all stairs in your home. Avoid having throw rugs at the top or bottom of the stairs. If you do have throw rugs, attach them to the floor with carpet tape. Choose a carpet that does not hide the edge of the steps on the stairway. Check any carpeting to make sure that it is firmly attached to the stairs. Fix any carpet that is loose or worn. What can I do on the outside of my home? Use bright outdoor lighting. Regularly fix the edges of walkways and driveways and fix any cracks. Remove anything that might make you trip as you walk through a door, such as a raised step or threshold. Trim any bushes or trees on the path to your home. Regularly check to see if handrails are loose or broken. Make sure that both sides of any steps have handrails. Install guardrails along the edges of any raised decks and porches. Clear walking paths of anything that might make someone trip, such as tools or rocks. Have any leaves, snow, or ice cleared regularly. Use sand or salt on walking paths during winter. Clean up any spills in your garage right away. This includes grease or oil spills. What other actions can I take? Wear shoes that: ? Have a low heel. Do not wear high heels. ? Have rubber bottoms. ? Are comfortable and fit you well. ? Are closed at the toe. Do not wear open-toe sandals. Use tools that help you move around (mobility aids) if they are needed. These include: ? Canes. ? Walkers. ? Scooters. ? Crutches. Review your medicines with your doctor. Some medicines can make you feel dizzy. This can increase your chance of falling. Ask your doctor what other things you can do to help prevent falls. Where to find more information Centers for Disease Control and PreventionMOISÉS: https://cdc.gov National [place] on Aging: https://sf8xixt.bimal.nih.gov Contact a doctor if: You are afraid of falling at home. You feel weak, drowsy, or dizzy at home. You fall at home. Summary There are many simple things that you can do to make your home safe and to help prevent falls. Ways to make your home safe include removing tripping hazards and installing grab bars in the bathroom. Ask for help when making these changes in your home. This information is not intended to replace advice given to you by your health care provider. Make sure you discuss any questions you have with your health care provider. Document Released: 11/26/2009 Document Revised: 05/23/2019 Document Reviewed: 2017 [employer] Patient Education 2020 [employer] Hospital Discharge After a Stroke Being discharged from the hospital after a stroke can feel overwhelming. Many things may be different, and it is normal to feel scared or anxious. Some stroke survivors may be able to return to theirhomes, and others may need more specialized care on a temporary or permanent basis. Your stroke care team will work with you to develop a discharge plan that is best for you. Ask questions if you do not understand something. Invite a friend or family member to participate in discharge planning. Understanding and following your discharge plan can help to prevent another stroke or other problems. Understanding your medicines After a stroke, your health care provider may prescribe one or more types of medicine. It is important to take medicines exactly as told by your health care provider. Serious harm, such as another stroke, can happen if you are unable to take your medicine exactly as prescribed. Make sure you understand: What medicine to take. Why you are taking the medicine. How and when to take it. If it can be taken with your other medicines and herbal supplements. Possible side effects. When to call your health care provider if you have any side effects. How you will get and pay for your medicines. Medical assistance programs may be able to help you pay for prescription medicines if you cannot afford them. If you are taking an anticoagulant, be sure to take it exactly as told by your health care provider. This type of medicine can increase the risk of bleeding because it works to prevent blood from clotting. You may need to take certain precautions to prevent bleeding. You should contact your health care provider if you have: Bleeding or bruising. A fall or other injury to your head. Blood in your urine or stool (feces). Planning for home safety Take steps to prevent falls, such as installing grab bars or using a shower chair. Ask a friend or family member to get needed things in place before you go home if possible. A therapist can come to your home to make recommendations for safety equipment. Ask your health care provider if you would benefit from this service or from home care. Getting needed equipment Ask your health care provider for a list of any medical equipment and supplies you will need at home. These may include items such as: Walkers. Canes. Wheelchairs. Hand-strengthening devices. Special eating utensils. Medical equipment can be rented or purchased, depending on your insurance coverage. Check with [employer] company about what is covered. Keeping follow-up visits After a stroke, you will need to follow up regularly with a health care provider. You may also needrehabilitation, which can include physical therapy, occupational therapy, or speech-language therapy. Keeping these appointments is very important to your recovery after a stroke. Be sure to bring yourmedicine list and discharge papers with you to your appointments. If you need help to keep track ofyour schedule, use a calendar or appointment reminder. Preventing another stroke Having a stroke puts you at risk for another stroke in the future. Ask your health care provider what actions you can take to lower the risk. These may include: Increasing how much you exercise. Making a healthy eating plan. Quitting smoking. Managing other health conditions, such as high blood pressure, high cholesterol, or diabetes. Limiting alcohol use. Knowing the warning signs of a stroke Make sure you understand the signs of a stroke. Before you leave the hospital, you will receive information outlining the stroke warning signs. Share these with your friends and family members. BE FAST is an easy way to remember the main warning signs of a stroke: B - Balance. Signs are dizziness, sudden trouble walking, or loss of balance. E - Eyes. Signs are trouble seeing or a sudden change in vision. F - Face. Signs are sudden weakness or numbness of the face, or the face or eyelid drooping on one side. A - Arms. Signs are weakness or numbness in an arm. This happens suddenly and usually on one side of the body. S - Speech. Signs are sudden trouble speaking, slurred speech, or trouble understanding what peoplesay. T - Time. Time to call emergency services. Write down what time symptoms started. Other signs of stroke may include: A sudden, severe headache with no known cause. Nausea or vomiting. Seizure. These symptoms may represent a serious problem that is an emergency. Do not wait to see if the symptoms will go away. Get medical help right away. Call your local emergency services (911 in the [place] Do not drive yourself to the hospital. Make note of the time that you had your first symptoms. Your emergency responders or emergency roomstaff will need to know this information. Summary Being discharged from the hospital after a stroke can feel overwhelming. It is normal to feel scared or anxious. Make sure you take medicines exactly as told by your health care provider. Know the warning signs of a stroke, and get help right way if you have any of these symptoms. BE FAST is an easy way to remember the main warning signs of a stroke. This information is not intended to replace advice given to you by your health care provider. Make sure you discuss any questions you have with your health care provider. Document Released: 05/05/2017 Document Revised: 02/02/2018 Document Reviewed: 05/05/2017 Elsevier Patient Education 2020 [employer] Aortic Valve Stenosis Aortic valve stenosis is a narrowing of the aortic valve in the heart. The aortic valve opens and closes to regulate blood flow between the left side of the heart (left ventricle) and the artery thatleads away from the heart (aorta). When the aortic valve becomes narrow, it is difficult for the heart to pump blood out to the body, which causes the heart to work harder. The extra work can weaken the heart muscle over time. Aortic valve stenosis can range from mild to severe. If it is not treated, it can become more severe over time and lead to heart failure. What are the causes? This condition may be caused by: Buildup of calcium around and on the aortic valve. This can occur with aging. This is the most common cause of aortic valve stenosis. A heart problem that developed in the womb ( defect). Rheumatic fever. Radiation to the chest. What increases the risk? You may be more likely to develop this condition if: You are older than age 65. You were born with an abnormal bicuspid valve. What are the signs or symptoms? You may not have any symptoms until your condition becomes severe. It may take 10 20 years for mildor moderate aortic valve stenosis to become severe. Symptoms may include: Shortness of breath. This may get worse during physical activity. Feeling unusually weak and tired (fatigue). Extreme discomfort in the chest, neck, or arm during physical activity (angina). A heartbeat that is irregular or faster than normal (palpitations). Dizziness or fainting. This may happen when you get physically tired or after you take certain heart medicines, such as nitroglycerin. How is this diagnosed? This condition may be diagnosed with: A physical exam. Echocardiogram. This is a type of imaging test that uses sound waves (ultrasound) to make images ofyour heart. There are two kinds of this test that may be used. ? Transthoracic echocardiogram (TTE). For this type, a wand-like tool (transducer) is moved over yourchest to create ultrasound images that are recorded by a computer. ? Transesophageal echocardiogram (TIMOTEO). For this type, a flexible tube (probe) is inserted down the part of the body that moves food from your mouth to your stomach (esophagus). The heart and the esophagus are close to each other. Your health care provider will use the probe to take clear, detailed pictures of the heart. Cardiac catheterization. For this procedure, a small, thin tube (catheter) is passed through a large vein in your neck, groin, or arm. The catheter is used to get information about arteries, structures, blood pressure, and oxygen levels in your heart. Stress tests. These are tests that evaluate the blood supply to your heart and your heart's response to exercise. You may work with a health care provider who specializes in the heart (art class model) for diagnosis and treatment. How is this treated? Treatment depends on how severe your condition is and what your symptoms are. You will need to haveyour heart checked regularly to make sure that your condition is not getting worse or causing serious problems. Treatment may also include: Surgery to replace your aortic valve. This is the most common treatment for aortic valve stenosis, and it is the only treatment to cure the condition. Several types of surgeries are available. The surgery may be done: ? Through a large incision over your heart (open-heart surgery). ? Through small incisions, using a flexible tube called a catheter (transcatheter aortic valve replacement, TAVR). Medicines that help to keep your heart rate regular. Medicines that thin your blood (anticoagulants) to prevent blood clots. Antibiotic medicines to help prevent infection. If your condition is mild, you may only need regular follow-up visits for monitoring. Follow these instructions at home: Lifestyle Limit alcohol intake to no more than 1 drink a day for non women and 2 drinks a day for men. One drink equals 12 oz of beer, 5 oz of wine, or 1 oz of hard liquor. Do not use any products that contain nicotine or tobacco, such as cigarettes and e-cigarettes. If you need help quitting, ask your health care provider. Work with your health care provider to manage your blood pressure and cholesterol. Maintain a healthy weight. Eating and drinking Eat a heart-healthy diet that includes plenty of fresh fruits and vegetables, whole grains, lean protein, and low-fat or nonfat dairy. Limit how much caffeine you drink. Caffeine can affect your heart's rate and rhythm. Avoid foods that are: ? High in salt (sodium), saturated fat, or sugar. ? Canned or highly processed. ? Fried. Follow instructions from your health care provider about any other eating or drinking restrictions. Activity Exercise regularly and return to your normal activities as told by your health care provider. Ask your health care provider what amount and type of physical activity is safe for you. ? If your aortic valve stenosis is mild, you may only need to avoid very intense physical activity, such as heavy weight lifting. ? The more severe your aortic valve stenosis is, the more activities you may need to avoid. If you are taking blood thinners: Before you take any medicines that contain aspirin or NSAIDs, talk with your health care provider. These medicines increase your risk for dangerous bleeding. Take your medicine exactly as told, at the same time every day. Avoid activities that could cause injury or bruising, and follow instructions about how to prevent falls. Wear a medical alert bracelet or carry a card that lists what medicines you take. General instructions Take nlol-sgs-wcjklge and prescription medicines only as told by your health care provider. If you were prescribed an antibiotic, take it as told by your health care provider. Do not stop taking the antibiotic even if you start to feel better. If you are a woman and you plan to become , talk with your health care provider before you become . Before you have any type of medical or dental procedure or surgery, tell all health care providers that you have aortic valve stenosis. This may affect the treatment that you receive. Keep all follow-up visits as told by your health care provider. This is important. Contact a health care provider if: You have a fever. Get help right away if: You develop any of the following symptoms: ? Chest pain. ? Chest tightness. ? Shortness of breath. ? Trouble breathing. You feel light-headed. You feel like you might faint. Your heartbeat is irregular or faster than normal. These symptoms may represent a serious problem that is an emergency. Do not wait to see if the symptoms will go away. Get medical help right away. Call your local emergency services (911 in the [place] Do not drive yourself to the hospital. Summary Aortic valve stenosis is a narrowing of the aortic valve in the heart. The aortic valve opens and closes to regulate blood flow between the left side of the heart (left ventricle) and the artery thatleads away from the heart (aorta). Aortic valve stenosis can range from mild to severe. If it is not treated, it can become more severe over time and lead to heart failure. Treatment depends on how severe your condition is and what your symptoms are. You will need to haveyour heart checked regularly to make sure that your condition is not getting worse or causing serious problems. Exercise regularly and return to your normal activities as told by your health care provider. Ask your health care provider what amount and type of physical activity is safe for you. This information is not intended to replace advice given to you by your health care provider. Make sure you discuss any questions you have with your health care provider. Document Released: 10/29/2003 Document Revised: 01/12/2018 Document Reviewed: 11/02/2017 Elsevier Patient Education 2020 [employer] Daily Weight Record It is important to weigh yourself daily. To do this: Make sure you use a reliable scale. Use the same scale each day. Keep this daily weight chart near your scale. Weigh yourself each morning at the same time. Before weighing yourself: ? Take off your shoes. ? Make sure you are wearing the same amount of clothing each day. Write down your weight in the spaces on the form. Compare today's weight to yesterday's weight. Bring this form with you to your follow-up visits with your health care provider. Call your health care provider if you have concerns about your weight, including rapid weight gain or loss. Date: Weight: Date: Weight: Date: Weight: Date: Weight: Date: Weight: Date: Weight: Date: Weight: Date: Weight: Date: Weight: Date: Weight: Date: Weight: Date: Weight: Date: Weight: Date: Weight: Date: Weight: Date: Weight: Date: Weight: Date: Weight: Date: Weight: Date: Weight: Date: Weight: Date: Weight: Date: Weight: Date: Weight: Date: Weight: Date: Weight: Date: Weight: Date: Weight: Date: Weight: Date: Weight: Date: Weight: Date: Weight: Date: Weight: Date: Weight: Date: Weight: Date: Weight: Date: Weight: Date: Weight: Date: Weight: Date: Weight: Date: Weight: Date: Weight: Date: Weight: Date: Weight: Date: Weight: Date: Weight: Date: Weight: Date: Weight: Date: Weight: Date: Weight: This information is not intended to replace advice given to you by your health care provider. Make sure you discuss any questions you have with your health care provider. Document Released: 04/13/2007 Document Revised: 01/29/2018 Document Reviewed: 01/29/2018 Elsevier Patient Education 2020 [employer] Daily Diabetes Record Check your blood glucose (BG) as directed by your health care provider. Use this form to record your BG results as well as any diabetes medicines that you take, including insulin. Bringing a record of your BG results and a list of your current medicines to your health care provider is very helpful in managing your diabetes. These numbers help your health care provider to know whether your diabetes management plan needs to be changed. Patient name: Week of Daily BG results and diabetes medicines Date: Breakfast BG / Medicines: / Lunch BG / Medicines: / Dinner BG / Medicines: / Bedtime BG / Medicines: / Date: Breakfast BG / Medicines: / Lunch BG / Medicines: / Dinner BG / Medicines: / Bedtime BG / Medicines: / Date: Breakfast BG / Medicines: / Lunch BG / Medicines: / Dinner BG / Medicines: / Bedtime BG / Medicines: / Date: Breakfast BG / Medicines: / Lunch BG / Medicines: / Dinner BG / Medicines: / Bedtime BG / Medicines: / Date: Breakfast BG / Medicines: / Lunch BG / Medicines: / Dinner BG / Medicines: / Bedtime BG / Medicines: / Date: Breakfast BG / Medicines: / Lunch BG / Medicines: / Dinner BG / Medicines: / Bedtime BG / Medicines: / Date: Breakfast BG / Medicines: / Lunch BG / Medicines: / Dinner BG / Medicines: / Bedtime BG / Medicines: / Notes: This information is not intended to replace advice given to you by your health care provider. Make sure you discuss any questions you have with your health care provider. Document Released: 01/03/2005 Document Revised: 11/13/2018 Document Reviewed: 10/28/2016 Elsevier Patient Education 2020 [employer] Additional Information VACCINATE! IT SAVES LIVES! Members of the community who have not yet received the COVID-19 vaccine and would like to receive it can visit one of [facility] vaccine clinics. There are many vaccine clinic locations within the [facility] [address]. For locations and available times, please visit https://gettheshot.coronavirus.[place].gov/. It is important to note that some COVID mobile vaccine clinics are held outdoors and may be canceled in rainy or stormy conditions. To learn more about pediatric vaccinations (ages 5-11), we invite you to visit the [facility] webpage. https://www.[facility].org/pages/1253-Iegdc-Elduubkcglz-Imlevqjynp-Avfvh-Nqk stions.htmlTo learn more about the COVID-19 vaccine, we invite you to visit the CDC website for a list of frequently asked questions.https://www.cdc.gov/coronavirus/2019-ncov/vaccines/faq.html [facility] Patient Portal Access Instructions: Stay connected with your healthcare team and access your personal medical information anytime with the [facility] Patient Portal. Please follow the directions below to create your [facility] account: 1.Access the email account you provided upon registration to the hospital/physician office.2.Look for an invitation email from [facility].3.Open the email and access the invitation link: AcceptInvitation to [facility] [facility].4.Fill in the required sharp to create your account. To access your account, visit [email or web address]. Click the blue button labeled Access Patient Portal and then log in with the username and password that you created in the steps above. You will be able to view your test results, lab results, a summary of your visits, upcoming appointments and more. There is also a convenient messaging option where you can send secure messages to your p rovider. In addition, you will have the ability to download any documents or summaries to your computer and/or send the information securely to a physician. Remember that your healthcare information is confidential, so carefully consider who you will allowto register on the [facility] Patient Portal for access to your information. You can also access [facility] on the [facility] nan. Simply click on Patient Portal and then log into your account. If you would like to receive a full copy of your medical records, please contact the [facility] Medical Records Department by calling [phone], Monday through Monday between 8 a.m. and 4:30 p.m. HOW TO SAFELY DISPOSE OF PRESCRIPTION MEDICATIONS Please use one of the following methods to safely dispose of your unused medications. 1.Use a drug disposal kit: the drug disposal pouch allows you to safely discard your old and unuseddrugs. Ask your nurse to give you one when you are discharged.2.Visit a local take-back location: Many local pharmacies and police departments have programs that collect old and unwanted prescriptiondrugs. Call your local pharmacy or go to http://Redicam/0O1En0p to find one close to you.3.Make use of household items: Use cat litter or old coffee grounds to dispose medications if other options arenot available. Mix your drugs with these household products, seal them in an airtight container andthrow it into the garbage. Call [facility]: [phone] to be sure your drugs can be disposed of in this way. Some medicines may require a different approach.4.Never flush your medications down the toilet. IF YOU HAVE BEEN PRESCRIBED AN OPIOID FOR PAIN If you have been prescribed an opioid (such as hydrocodone, oxycodone or morphine), it is critical to understand the possible side effects and risks of opioid pain medications. Even when taken as directed, opioids can have several side effects including: Tolerance, meaning you might need to take more of a medication for the same pain relief. Nausea, vomiting and/or constipation. Sleepiness, dizziness, dry mouth, confusion, depression or itching. Physical dependence, meaning you have withdrawal symptoms when a medication is stopped, can develop within a few days. KNOW YOUR RESPONSIBILITIES It is important to know exactly how much and how often to take the opioid pain medications you are prescribed. Never take opioids in higher amounts or more often than prescribed. Do not combine opioids with alcohol or other drugs that cause drowsiness, such as benzodiazepines, also known as benzos, including diazepam and alprazolam, muscle relaxants or sleep aids. Never sell or share prescription opioids. This is illegal. Store opioids in a secure place and out of reach of others (including children, family, friends and visitors). The last page of this document has been signed and retained as a CHART COPY. Signatures Patient Education Materials Fall Prevention in the Home, Adult, [facility] Hospital Discharge After a Stroke Aortic Valve Stenosis Form - Daily Weight Record Form - Daily Diabetes Record Medication Leaflets My discharge plan and instructions have been reviewed and explained to me and I,KIEL CATHERINE understand my current condition and have read and understand these discharge instructions. I have received a written copy of the plan/instructions. If I have questions, I am aware that I should contact my doctor. Patient/Bacteriologist Pharmaceutical Signature: Date/Time: (more content not included)... Leland [id number] Nurse Progress note Nursing GG Entered On: 05/20/2023 11:13 EDT Performed On: 05/20/2023 11:12 EDT by Bebeto Cruz RN Nursing GG's OT GG Grid Eating : Set up & Clean up Bebeto Cruz RN - 05/20/2023 11:12 EDT Digitally Signed by Bebeto Cruz RN on 05/20/2023 11:12 AM Leland [id number] Note ORIGINAL EXAMINATION: ONE SUPINE XRAY VIEW(S) OF THE ABDOMEN 05/20/2023 9:39 am COMPARISON: May 20, 2023 HISTORY: ORDERING SYSTEM PROVIDED HISTORY: Reason for Exam: retest FINDINGS: Distended mid abdominal small bowel is present, similar to the prior exam. There is no colonic dilatation identified. Degenerative and postoperative changes are noted in the spine. Other findings are stable since the prior exam. IMPRESSION: No change in distended small bowel since previous exam. Interpreted by: Kiel Zaragoza MD Preliminary Report By: Kiel Zaragoza MD Electronically signed By Kiel Zaragoza MD Dictated Date: 05/20/2023 9:46:42 AM Prelim Date: 05/20/2023 9:47:55 AM Sign Date: 05/20/2023 9:47:55 AM Ordering Provider: JESUS MANUEL Mckoy04[birth year]24 Note ORIGINAL EXAMINATION: ONE SUPINE XRAY VIEW(S) OF THE ABDOMEN 05/20/2023 12:13 am COMPARISON: Abdomen x-ray on 05/11/2023. CT abdomen and pelvis on 05/09/2023. HISTORY: ORDERING SYSTEM PROVIDED HISTORY: Reason for Exam: emesis, abdominal pain FINDINGS: Detail is limited due to patient body habitus. There are several dilated air-filled loops of small intestine. There is mild gas scattered in the colon without dilatation of the colon. There is no sign of free intraperitoneal air on this supine exam. Previous instrumented fusion of L4-L5 is noted. IMPRESSION: Multiple dilated air-filled loops of small intestine suspicious for small bowel obstruction. Interpreted by: Sumit Carrasco MD Preliminary Report By: Sumit Carrasco MD Electronically signed By Sumit Carrasco MD Dictated Date: 05/20/2023 12:33:12 AM Prelim Date: 05/20/2023 12:35:35 AM Sign Date: 05/20/2023 12:35:35 AM Ordering Provider: HA Escalantelawn04-05-2024 Nurse Progress note Nursing GG Entered On: 05/19/2023 17:38 EDT Performed On: 05/19/2023 17:38 EDT by Bebeto Cruz RN Nursing GG's OT GG Grid Eating : Set up & Clean up Bebeto Cruz RN - 05/19/2023 17:38 EDT Digitally Signed by Bebeto Cruz RN on 05/19/2023 05:38 PM Leland [id number] Hospital Discharge instructions Patient Education 05/19/2023 12:41:41 Fall Prevention in the Home, Adult, Qxjw-gr-Ovdi Fall Prevention in the Home, Adult Falls can cause injuries. They can happen to people of all ages. There are many things you can do to make your home safe and to help prevent falls. Ask for help when making these changes, if needed. What actions can I take to prevent falls? General Instructions Use good lighting in all rooms. Replace any light bulbs that burn out. Turn on the lights when you go into a dark area. Use night-lights. Keep items that you use often in trbc-zi-zvkgp places. Lower the shelves around your home if necessary. Set up your furniture so you have a clear path. Avoid moving your furniture around. Do not have throw rugs and other things on the floor that can make you trip. Avoid walking on wet floors. If any of your floors are uneven, fix them. Add color or contrast paint or tape to clearly morgan and help you see: ?Any grab bars or handrails. ?First and last steps of stairways. ?Where the edge of each step is. If you use a stepladder: ?Make sure that it is fully opened. Do not climb a closed stepladder. ?Make sure that both sides of the stepladder are locked into place. ?Ask someone to hold the stepladder for you while you use it. If there are any pets around you, be aware of where they are. What can I do in the bathroom? Keep the floor dry. Clean up any water that spills onto the floor as soon as it happens. Remove soap buildup in the tub or shower regularly. Use non-skid mats or decals on the floor of the tub or shower. Attach bath mats securely with double-sided, non-slip rug tape. If you need to sit down in the shower, use a plastic, non-slip stool. Install grab bars by the toilet and in the tub and shower. Do not use towel bars as grab bars. What can I do in the bedroom? Make sure that you have a light by your bed that is easy to reach. Do not use any sheets or blankets that are too big for your bed. They should not hang down onto thefloor. Have a firm chair that has side arms. You can use this for support while you get dressed. What can I do in the kitchen? Clean up any spills right away. If you need to reach something above you, use a strong step stool that has a grab bar. Keep electrical cords out of the way. Do not use floor romansh or wax that makes floors slippery. If you must use wax, use non-skid floor wax. What can I do with my stairs? Do not leave any items on the stairs. Make sure that you have a light switch at the top of the stairs and the bottom of the stairs. If you do not have them, ask someone to add them for you. Make sure that there are handrails on both sides of the stairs, and use them. Fix handrails that are broken or loose. Make sure that handrails are as long as the stairways. Install non-slip stair treads on all stairs in your home. Avoid having throw rugs at the top or bottom of the stairs. If you do have throw rugs, attach them to the floor with carpet tape. Choose a carpet that does not hide the edge of the steps on the stairway. Check any carpeting to make sure that it is firmly attached to the stairs. Fix any carpet that is loose or worn. What can I do on the outside of my home? Use bright outdoor lighting. Regularly fix the edges of walkways and driveways and fix any cracks. Remove anything that might make you trip as you walk through a door, such as a raised step or threshold. Trim any bushes or trees on the path to your home. Regularly check to see if handrails are loose or broken. Make sure that both sides of any steps have handrails. Install guardrails along the edges of any raised decks and porches. Clear walking paths of anything that might make someone trip, such as tools or rocks. Have any leaves, snow, or ice cleared regularly. Use sand or salt on walking paths during winter. Clean up any spills in your garage right away. This includes grease or oil spills. What other actions can I take? Wear shoes that: ?Have a low heel. Do not wear high heels. ?Have rubber bottoms. ?Are comfortable and fit you well. ?Are closed at the toe. Do not wear open-toe sandals. Use tools that help you move around (mobility aids) if they are needed. These include: ?Canes. ?Walkers. ?Scooters. ?Crutches. Review your medicines with your doctor. Some medicines can make you feel dizzy. This can increase your chance of falling. Ask your doctor what other things you can do to help prevent falls. Where to find more information Centers for Disease Control and Prevention, [employer]: https://cdc.gov National [place] on Aging: https://ir4rlvz.bimal.nih.gov Contact a doctor if: You are afraid of falling at home. You feel weak, drowsy, or dizzy at home. You fall at home. Summary There are many simple things that you can do to make your home safe and to help prevent falls. Ways to make your home safe include removing tripping hazards and installing grab bars in the bathroom. Ask for help when making these changes in your home. This information is not intended to replace advice given to you by your health care provider. Make sure you discuss any questions you have with your health care provider. Document Released: 11/26/2009 Document Revised: 05/23/2019 Document Reviewed: 2017 [employer] Patient Education 2020 [employer]. 05/19/2023 12:41:35 Hospital Discharge After a Stroke Hospital Discharge After a Stroke Being discharged from the hospital after a stroke can feel overwhelming. Many things may be different, and it is normal to feel scared or anxious. Some stroke survivors may be able to return to theirhomes, and others may need more specialized care on a temporary or permanent basis. Your stroke care team will work with you to develop a discharge plan that is best for you. Ask questions if you do not understand something. Invite a friend or family member to participate in discharge planning. Understanding and following your discharge plan can help to prevent another stroke or other problems. Understanding your medicines After a stroke, your health care provider may prescribe one or more types of medicine. It is important to take medicines exactly as told by your health care provider. Serious harm, such as another stroke, can happen if you are unable to take your medicine exactly as prescribed. Make sure you understand: What medicine to take. Why you are taking the medicine. How and when to take it. If it can be taken with your other medicines and herbal supplements. Possible side effects. When to call your health care provider if you have any side effects. How you will get and pay for your medicines. Medical assistance programs may be able to help you pay for prescription medicines if you cannot afford them. If you are taking an anticoagulant, be sure to take it exactly as told by your health care provider. This type of medicine can increase the risk of bleeding because it works to prevent blood from clotting. You may need to take certain precautions to prevent bleeding. You should contact your health care provider if you have: Bleeding or bruising. A fall or other injury to your head. Blood in your urine or stool (feces). Planning for home safety Take steps to prevent falls, such as installing grab bars or using a shower chair. Ask a friend or family member to get needed things in place before you go home if possible. A therapist can come to your home to make recommendations for safety equipment. Ask your health care provider if you would benefit from this service or from home care. Getting needed equipment Ask your health care provider for a list of any medical equipment and supplies you will need at home. These may include items such as: Walkers. Canes. Wheelchairs. Hand-strengthening devices. Special eating utensils. Medical equipment can be rented or purchased, depending on your insurance coverage. Check with your[employer] company about what is covered. Keeping follow-up visits After a stroke, you will need to follow up regularly with a health care provider. You may also needrehabilitation, which can include physical therapy, occupational therapy, or speech-language therapy. Keeping these appointments is very important to your recovery after a stroke. Be sure to bring yourmedicine list and discharge papers with you to your appointments. If you need help to keep track ofyour schedule, use a calendar or appointment reminder. Preventing another stroke Having a stroke puts you at risk for another stroke in the future. Ask your health care provider what actions you can take to lower the risk. These may include: Increasing how much you exercise. Making a healthy eating plan. Quitting smoking. Managing other health conditions, such as high blood pressure, high cholesterol, or diabetes. Limiting alcohol use. Knowing the warning signs of a stroke Make sure you understand the signs of a stroke. Before you leave the hospital, you will receive information outlining the stroke warning signs. Share these with your friends and family members. BE FAST is an easy way to remember the main warning signs of a stroke: B - Balance. Signs are dizziness, sudden trouble walking, or loss of balance. E - Eyes. Signs are trouble seeing or a sudden change in vision. F - Face. Signs are sudden weakness or numbness of the face, or the face or eyelid drooping on one side. A - Arms. Signs are weakness or numbness in an arm. This happens suddenly and usually on one side of the body. S - Speech. Signs are sudden trouble speaking, slurred speech, or trouble understanding what peoplesay. T - Time. Time to call emergency services. Write down what time symptoms started. Other signs of stroke may include: A sudden, severe headache with no known cause. Nausea or vomiting. Seizure. These symptoms may represent a serious problem that is an emergency. Do not wait to see if the symptoms will go away. Get medical help right away. Call your local emergency services (911 in the [place] Do not drive yourself to the hospital. Make note of the time that you had your first symptoms. Your emergency responders or emergency roomstaff will need to know this information. Summary Being discharged from the hospital after a stroke can feel overwhelming. It is normal to feel scared or anxious. Make sure you take medicines exactly as told by your health care provider. Know the warning signs of a stroke, and get help right way if you have any of these symptoms. BE FAST is an easy way to remember the main warning signs of a stroke. This information is not intended to replace advice given to you by your health care provider. Make sure you discuss any questions you have with your health care provider. Document Released: 05/05/2017 Document Revised: 02/02/2018 Document Reviewed: 05/05/2017 [employer] Patient Education 2020 [employer] 05/19/2023 12:41:33 Aortic Valve Stenosis Aortic Valve Stenosis Aortic valve stenosis is a narrowing of the aortic valve in the heart. The aortic valve opens and closes to regulate blood flow between the left side of the heart (left ventricle) and the artery thatleads away from the heart (aorta). When the aortic valve becomes narrow, it is difficult for the heart to pump blood out to the body, which causes the heart to work harder. The extra work can weaken the heart muscle over time. Aortic valve stenosis can range from mild to severe. If it is not treated, it can become more severe over time and lead to heart failure. What are the causes? This condition may be caused by: Buildup of calcium around and on the aortic valve. This can occur with aging. This is the most common cause of aortic valve stenosis. A heart problem that developed in the womb ( defect). Rheumatic fever. Radiation to the chest. What increases the risk? You may be more likely to develop this condition if: You are older than age 65. You were born with an abnormal bicuspid valve. What are the signs or symptoms? You may not have any symptoms until your condition becomes severe. It may take 10 20 years for mildor moderate aortic valve stenosis to become severe. Symptoms may include: Shortness of breath. This may get worse during physical activity. Feeling unusually weak and tired (fatigue). Extreme discomfort in the chest, neck, or arm during physical activity (angina). A heartbeat that is irregular or faster than normal (palpitations). Dizziness or fainting. This may happen when you get physically tired or after you take certain heart medicines, such as nitroglycerin. How is this diagnosed? This condition may be diagnosed with: A physical exam. Echocardiogram. This is a type of imaging test that uses sound waves (ultrasound) to make images ofyour heart. There are two kinds of this test that may be used. ?Transthoracic echocardiogram (TTE). For this type, a wand-like tool (transducer) is moved over your chest to create ultrasound images that are recorded by a computer. ?Transesophageal echocardiogram (TIMOTEO). For this type, a flexible tube (probe) is inserted down the part of the body that moves food from your mouth to your stomach (esophagus). The heart and the esophagus are close to each other. Your health care provider will use the probe to take clear, detailed pictures of the heart. Cardiac catheterization. For this procedure, a small, thin tube (catheter) is passed through a large vein in your neck, groin, or arm. The catheter is used to get information about arteries, structures, blood pressure, and oxygen levels in your heart. Stress tests. These are tests that evaluate the blood supply to your heart and your heart's response to exercise. You may work with a health care provider who specializes in the heart (art class model) for diagnosis and treatment. How is this treated? Treatment depends on how severe your condition is and what your symptoms are. You will need to haveyour heart checked regularly to make sure that your condition is not getting worse or causing serious problems. Treatment may also include: Surgery to replace your aortic valve. This is the most common treatment for aortic valve stenosis, and it is the only treatment to cure the condition. Several types of surgeries are available. The surgery may be done: ?Through a large incision over your heart (open-heart surgery). ?Through small incisions, using a flexible tube called a catheter (transcatheter aortic valve replacement, TAVR). Medicines that help to keep your heart rate regular. Medicines that thin your blood (anticoagulants) to prevent blood clots. Antibiotic medicines to help prevent infection. If your condition is mild, you may only need regular follow-up visits for monitoring. Follow these instructions at home: Lifestyle Limit alcohol intake to no more than 1 drink a day for non women and 2 drinks a day for men. One drink equals 12 oz of beer, 5 oz of wine, or 1 oz of hard liquor. Do not use any products that contain nicotine or tobacco, such as cigarettes and e-cigarettes. If you need help quitting, ask your health care provider. Work with your health care provider to manage your blood pressure and cholesterol. Maintain a healthy weight. Eating and drinking Eat a heart-healthy diet that includes plenty of fresh fruits and vegetables, whole grains, lean protein, and low-fat or nonfat dairy. Limit how much caffeine you drink. Caffeine can affect your heart's rate and rhythm. Avoid foods that are: ?High in salt (sodium), saturated fat, or sugar. ?Canned or highly processed. ?Fried. Follow instructions from your health care provider about any other eating or drinking restrictions. Activity Exercise regularly and return to your normal activities as told by your health care provider. Ask your health care provider what amount and type of physical activity is safe for you. ?If your aortic valve stenosis is mild, you may only need to avoid very intense physical activity, such as heavy weight lifting. ?The more severe your aortic valve stenosis is, the more activities you may need to avoid. If you are taking blood thinners: Before you take any medicines that contain aspirin or NSAIDs, talk with your health care provider. These medicines increase your risk for dangerous bleeding. Take your medicine exactly as told, at the same time every day. Avoid activities that could cause injury or bruising, and follow instructions about how to prevent falls. Wear a medical alert bracelet or carry a card that lists what medicines you take. General instructions Take [id number]-[id number] and prescription medicines only as told by your health care provider. If you were prescribed an antibiotic, take it as told by your health care provider. Do not stop taking the antibiotic even if you start to feel better. If you are a woman and you plan to become , talk with your health care provider before you become . Before you have any type of medical or dental procedure or surgery, tell all health care providers that you have aortic valve stenosis. This may affect the treatment that you receive. Keep all follow-up visits as told by your health care provider. This is important. Contact a health care provider if: You have a fever. Get help right away if: You develop any of the following symptoms: ?Chest pain. ?Chest tightness. ?Shortness of breath. ?Trouble breathing. You feel light-headed. You feel like you might faint. Your heartbeat is irregular or faster than normal. These symptoms may represent a serious problem that is an emergency. Do not wait to see if the symptoms will go away. Get medical help right away. Call your local emergency services (911 in the [place] Do not drive yourself to the hospital. Summary Aortic valve stenosis is a narrowing of the aortic valve in the heart. The aortic valve opens and closes to regulate blood flow between the left side of the heart (left ventricle) and the artery thatleads away from the heart (aorta). Aortic valve stenosis can range from mild to severe. If it is not treated, it can become more severe over time and lead to heart failure. Treatment depends on how severe your condition is and what your symptoms are. You will need to haveyour heart checked regularly to make sure that your condition is not getting worse or causing serious problems. Exercise regularly and return to your normal activities as told by your health care provider. Ask your health care provider what amount and type of physical activity is safe for you. This information is not intended to replace advice given to you by your health care provider. Make sure you discuss any questions you have with your health care provider. Document Released: 10/29/2003 Document Revised: 01/12/2018 Document Reviewed: 11/02/2017 [employer] Patient Education 2020 [employer] 05/19/2023 12:41:17 Form - Daily Weight Record Daily Weight Record It is important to weigh yourself daily. To do this: Make sure you use a reliable scale. Use the same scale each day. Keep this daily weight chart near your scale. Weigh yourself each morning at the same time. Before weighing yourself: ?Take off your shoes. ?Make sure you are wearing the same amount of clothing each day. Write down your weight in the spaces on the form. Compare today's weight to yesterday's weight. Bring this form with you to your follow-up visits with your health care provider. Call your health care provider if you have concerns about your weight, including rapid weight gain or loss. Date: Weight: Date: Weight: Date: Weight: Date: Weight: Date: Weight: Date: Weight: Date: Weight: Date: Weight: Date: Weight: Date: Weight: Date: Weight: Date: Weight: Date: Weight: Date: Weight: Date: Weight: Date: Weight: Date: Weight: Date: Weight: Date: Weight: Date: Weight: Date: Weight: Date: Weight: Date: Weight: Date: Weight: Date: Weight: Date: Weight: Date: Weight: Date: Weight: Date: Weight: Date: Weight: Date: Weight: Date: Weight: Date: Weight: Date: Weight: Date: Weight: Date: Weight: Date: Weight: Date: Weight: Date: Weight: Date: Weight: Date: Weight: Date: Weight: Date: Weight: Date: Weight: Date: Weight: Date: Weight: Date: Weight: Date: Weight: Date: Weight: Date: Weight: This information is not intended to replace advice given to you by your health care provider. Make sure you discuss any questions you have with your health care provider. Document Released: 04/13/2007 Document Revised: 01/29/2018 Document Reviewed: 01/29/2018 [employer] Patient Education 2020 [employer] 05/19/2023 12:40:55 Form - Daily Diabetes Record Daily Diabetes Record Check your blood glucose (BG) as directed by your health care provider. Use this form to record your BG results as well as any diabetes medicines that you take, including insulin. Bringing a record of your BG results and a list of your current medicines to your health care provider is very helpful in managing your diabetes. These numbers help your health care provider to know whether your diabetes management plan needs to be changed. Patient name: Week of Daily BG results and diabetes medicines Date: Breakfast BG / Medicines: / Lunch BG / Medicines: / Dinner BG / Medicines: / Bedtime BG / Medicines: / Date: Breakfast BG / Medicines: / Lunch BG / Medicines: / Dinner BG / Medicines: / Bedtime BG / Medicines: / Date: Breakfast BG / Medicines: / Lunch BG / Medicines: / Dinner BG / Medicines: / Bedtime BG / Medicines: / Date: Breakfast BG / Medicines: / Lunch BG / Medicines: / Dinner BG / Medicines: / Bedtime BG / Medicines: / Date: Breakfast BG / Medicines: / Lunch BG / Medicines: / Dinner BG / Medicines: / Bedtime BG / Medicines: / Date: Breakfast BG / Medicines: / Lunch BG / Medicines: / Dinner BG / Medicines: / Bedtime BG / Medicines: / Date: Breakfast BG / Medicines: / Lunch BG / Medicines: / Dinner BG / Medicines: / Bedtime BG / Medicines: / Notes: This information is not intended to replace advice given to you by your health care provider. Make sure you discuss any questions you have with your health care provider. Document Released: 01/03/2005 Document Revised: 11/13/2018 Document Reviewed: 10/28/2016 Else[employer] Patient Education 2020 [employer] Follow Up Care 04/27/2023 15:36:01 With:ALYSON ARTHUR MD Address: [facility] [address] [place] [address] [phone] When:05/22/2023 09:00:00 Comments:Take Discharge Instructions to Dr Visit - With:RICHARD ARSHAD MD, Surgery Address: [address] [facility] [address] [place] [address] [phone] When: only if needed Comments:General Surgeon - With:KIRK BARCENAS MD Address: [address] [facility] [place] [address]- When:05/26/2023 13:30:00 Comments:Cardiology - [facility] 04-05-2024 Nurse Progress note Nursing GG Entered On: 05/19/2023 14:14 EDT Performed On: 05/19/2023 14:13 EDT by Bebeto Cruz RN Nursing GG's OT GG Grid Eating : Set up & Clean up Bebeto Cruz RN - 05/19/2023 14:13 EDT Digitally Signed by Bebeto Cruz RN on 05/19/2023 02:13 PM [id number] medicine and rehab Progress note Subjective Patient states he is doing okay today, he does report that he is having some hard stools yesterday,he is afraid of getting another bowel obstruction. He denies abdominal pain. Denies nausea/vomiting. He states his appetite remains good and he is eating well. States he is staying well-hydrated. Denies difficulties with urination. He does states that he is very fearful that since his bowels are getting harder that he needs further medication to assist with this. States that he is looking forwardto discharging home tomorrow, denies any concerns Objective General: Alert, oriented NAD. Appears comfortable sitting in chair, no signs of acute pain. Calm and interactive. Pleasant and talkative. Good eye contact HEENT: No nasal drainage, EOMI, MMM Respiratory: LCTA nonlabored on room air; no cough/conversational dyspnea Cardiovascular: HRR; no tachycardia; no heart murmur Edema/Varicosities of Extremities: No edema bilateral thighs, 2+ edema bilateral calves, 3+ edema bilateral ankles Gastrointestinal: Abdomen soft, nondistended, nontender with bowel sounds present x 4 Genitourinary: No CVA tenderness, no suprapubic tenderness, no bladder distention Skin: Sternal incision healing well, no signs or symptoms of infection. Neurological: Dysarthria, right upper extremity weakness VITALS [id number](kg) 05/18 05:2236.4--[id number]/25404.0 05/17 20:4436.8--[id number]/49688.4 05/17 16:4336.7--[id number]/26933.0 05/17 07:5436.5--[id number] 05/17 06:1035.9--[id number] 24 Hr Tmax: 36.8 at 05/17 20:44 36 Hr Tmax: 36.8 at 05/17 20:44 Vital Signs are the last 5 in the past 48 hours. Weights display the last 5 within 7 days. Initial Wt: 04/27 119.4 kg 263 lb Current Wt: 05/17 118.6 kg 261 lb LABS No 36 Hour Lab Data Medications Active Inpt Meds: albuterol (albuterol 2.5 mg/3 mL (0.083%) inhalation solution) Start: 04/27/23 21:45:00 EDT, Dose =2.5 mg, = 3 mL, Inhalation, QIDRT, 0, 04/27/23 21:12:00 EDT amLODIPine Start: 05/03/23 9:00:00 EDT, Dose = 5 mg, = 1 tab(s), Oral, qDay, 1st dose location: [facility], , 05/02/23 10:39:00 EDT amiodarone Start: 04/27/23 21:12:00 EDT, Dose = 200 mg, = 1 tab(s), Oral, qDay, 04/27/23 21:12:00 EDT apixaban Start: 04/27/23 21:12:00 EDT, Dose = 5 mg, = 1 tab(s), Oral, BID, Indication for Use Atrial fibrillation, 04/27/23 21:12:00 EDT atorvastatin Start: 04/27/23 21:12:00 EDT, Dose = 10 mg, = 1 tab(s), Oral, qHS, 04/27/23 21:12:00 EDT budesonide (budesonide 0.5 mg/2 mL inhalation suspension) Start: 04/27/23 21:48:00 EDT, Dose = 0.5 mg, = 2 mL, Inhalation, BIDRT, 0, 04/27/23 21:12:00 EDT bumetanide (Bumex) Start: 05/11/23 9:00:00 EDT, Dose = 2 mg, = 2 tab(s), Oral, BID, 05/11/23 8:18:00 EDT insulin glargine (Lantus) Start: 05/10/23 16:00:00 EDT, Dose = 12 unit(s), = 0.12 mL, Subcutaneous (INT), acSupper, Rate: 0 mL/hr, Infuse over: 0 minute(s), 05/10/23 9:48:00 EDT insulin isophane (NPH) Start: 05/11/23 7:30:00 EDT, Dose = 38 unit(s), = 0.38 mL, Subcutaneous, Daily, 05/11/23 7:30:00 EDT insulin lispro (HumaLOG) (HumaLOG 100 units/mL injectable solution VIAL) Start: 04/28/23 9:48:00 EDT, 0-10 unit(s), Subcutaneous, TIDM, 0, 04/28/23 9:48:00 EDT melatonin Start: 05/02/23 21:00:00 EDT, Dose = 5 mg, = 1 tab(s), Oral, qHS, 05/02/23 7:18:00 EDT metoprolol (metoprolol tartrate 25 mg oral tablet) Start: 04/27/23 21:13:00 EDT, Dose = 37.5 mg, = 3 EA, Oral, BID, 0, 04/27/23 21:13:00 EDT miconazole topical (Desenex 2% topical powder) Start: 05/17/23 21:00:00 EDT, Dose = 1 nan, Topical,BID, Apply to: Groin and Abd Folds, Powder, 05/17/23 21:00:00 EDT multivitamin with minerals (Centrum) Start: 04/27/23 21:13:00 EDT, Dose = 1 tab(s), Tab, Oral, qDay, 04/27/23 21:13:00 EDT pantoprazole Start: 04/27/23 21:13:00 EDT, Dose = 40 mg, = 1 tab(s), Oral, qDay, 0, 04/27/23 21:13:00 EDT pregabalin (pregabalin 100 mg oral capsule) Start: 04/27/23 21:13:00 EDT, Dose = 100 mg, = 2 cap(s), Oral, BID, 0, 04/27/23 21:13:00 EDT pregabalin (pregabalin 200 mg oral capsule) Start: 04/27/23 21:13:00 EDT, Dose = 200 mg, = 4 cap(s), Oral, qHS, 0, 04/27/23 21:13:00 EDT senna Start: 04/28/23 9:00:00 EDT, Dose = 8.6 mg, = 1 tab(s), Oral, BID, 0, 04/28/23 8:34:00 EDT zinc oxide topical (zinc oxide 20% topical ointment) Start: 04/28/23 6:00:00 EDT, 1 application, Topical, BID, Apply to: buttocks., Ointment, 04/27/23 21:14:00 EDT Active PRN Meds: Al hydroxide/Mg hydroxide/simethicone (Maalox) Start: 04/27/23 21:21:00 EDT, Dose = 30 mL, Susp, Oral, q6h, PRN, Indigestion, 04/27/23 21:21:00 EDT acetaminophen (Tylenol) Start: 04/27/23 21:21:00 EDT, Dose = 650 mg, = 2 tab(s), Oral, q4h, PRN, Muscle pain, 04/27/23 21:21:00 EDT albuterol Start: 04/27/23 21:12:00 EDT, Dose = 2.5 mg, = 3 mL, Inhalation, q4hRT, PRN, as needed for shortness of breath or wheezing, 0, 04/27/23 21:12:00 EDT ammonium lactate topical (ammonium lactate 12% topical cream) Start: 04/27/23 21:46:00 EDT, 1 application, Topical, AsDirected, PRN, Dry skin, Apply to: B legs, Cream, 04/27/23 21:12:00 EDT docusate (Colace) Start: 04/27/23 21:21:00 EDT, Dose = 100 mg, = 1 cap(s), Oral, BID, PRN, Constipation, 04/27/23 21:21:00 EDT glucagon (GlucaGen) Start: 04/27/23 21:21:00 EDT, Dose = 1 mg, = 1 mL, Intramuscular, AsDirected, PRN, Hypoglycemia, if unresponsive, NO IV ACCESS & blood glucose less than 70mg/dL. If still unresponsive after 2 minutes, REPEAT x1., 04/27/23 21:21:00 EDT glucose (Dextrose 50% IV Push) Start: 04/27/23 21:21:00 EDT, Dose = 12.5 gram(s), = 25 mL, IV Push,AsDirected, PRN, Hypoglycemia, if unresponsive WITH IV ACCESS & blood glucose less than 70mg/dL. If still unresponsive after 2 minutes, REPEAT x1., 04/27/23 21:21:00 EDT glucose Start: 04/27/23 21:21:00 EDT, Dose = 16 gram(s), = 4 tab(s), Chewed, AsDirected, PRN, Hypoglycemia, DIABETIC PATIENT if responsive & blood glucose less than 70mg/dL. If blood glucose less than 70mg/dL after 15 minutes, REPEAT x1., 0, 04/27/23 21:2... glycerin (glycerin adult rectal suppository) Start: 04/27/23 21:21:00 EDT, Dose = 1 supp, Supp, Rectal, Daily, PRN, Constipation, 04/27/23 21:21:00 EDT guaiFENesin (guaiFENesin 100 mg/5 mL oral liquid) Start: 04/27/23 21:13:00 EDT, Dose = 200 mg, = 10mL, Oral, q6h, PRN, Cough, 0, 04/27/23 21:13:00 EDT magnesium hydroxide (Milk of Magnesia) Start: 04/27/23 21:21:00 EDT, Dose = 30 mL, Susp-Oral, Oral,qHS, PRN, Constipation, 04/27/23 21:21:00 EDT ondansetron (Zofran) Start: 05/09/23 7:37:00 EDT, Dose = 4 mg, = 1 tab(s), Oral, q6hr, PRN, Nausea,05/09/23 7:37:00 EDT polyethylene glycol 3350 (Miralax Powder Packet) Start: 04/27/23 21:21:00 EDT, Dose = 17 gram(s), =15 mL, Oral, qDay, PRN, Constipation, 04/27/23 21:21:00 EDT temazepam (Restoril) Start: 05/07/23 1:31:00 EDT, Dose = 15 mg, = 2 cap(s), Oral, qHS, PRN, Sleep, 0, 05/05/23 7:21:00 EDT traMADol Start: 04/29/23 12:08:00 EDT, Dose = 50 mg, = 1 tab(s), Oral, q4h, PRN, Pain, scale 1-6, 04/29/23 12:08:00 EDT traMADol Start: 05/04/23 8:08:00 EDT, Dose = 100 mg, = 2 tab(s), Oral, q4hr, PRN, Pain, scale 7-10,0, 05/04/23 8:08:00 EDT One Time Meds: None Active IV Meds: None Problems (12) Acute ischemic left MCA stroke (5240294265) Aortic stenosis with bicuspid valve (785089061) Bipolar (541994668) Chronic back pain greater than three months duration (0828669972) COPD (chronic obstructive pulmonary disease) (57181219) Fall (0061377) Fever (2932525345) HLD (hyperlipidemia) (58311118) HTN (hypertension) ([id number]) Morbid obesity (533512709) Obesity ([id number]) Sleep apnea ([id number]) ASSESSMENT/PLAN: Severe aortic stenosis status post aortic valve replacement as well as repair of the ascending aorta with extensive complicated postoperative course. Follow-up with cardiology scheduled 05/25 Acute ischemic infarct involving the left MCA territory, risk factor modification diabetic and blood pressure control, aspirin plus statin. Follow-up with neurology 05/28 New onset atrial fibrillation, cleared for anticoagulation with Eliquis Acute hypoxic respiratory failure oxygen in place, breathing comfortably on room air. Acute on chronic low back pain, pain management notes reviewed patient will continue with the Lyrica. Tylenol and Tramadol 1 or 2 tabs PRN. Denies any uncontrolled pain GI prophylaxis, Protonix Opioid induced constipation DVT prophylaxis continues Eliquis Dysarthria plus dysphagia, speech therapy, NG tube out. Diet upgraded to regular diet with thin liquids. Right upper extremity flaccid hemiparesis Right-sided weakness, working with PT and OT services EEG showing mild cortical dysfunction in the left hemisphere but no seizures Right upper extremity edema noted to have a superficial venous thrombosis treated supportively Morbid obesity Small bowel obstruction, currently resolved, reevaluating bowels close abdominal exam benign. Reports bowels are moving. Moderate pericardial effusion without tamponade noted on echo trending volume status Acute diastolic CHF with increased bilateral lower extremity edema. Most recent BNP improved at 442. We did discontinue Lasix and did initiate Bumex 2 mg twice daily. Continue with low-sodium diet and daily weights. Edema is showing improvement. Continue with close clinical monitoring, cardiology team consulted, note reviewed from 05/14. Appreciate input. Eliquis initiated for underlying A-fib, CT imaging the hospital showed subacute infarct of the posterior left frontal lobe without hemorrhage Low back pain, addition of tramadol 50 mg as well as 100 mg every 4 hours as needed for breakthrough pain, high utilization at the present time continue to monitor for any evidence of constipation especially given recent small bowel obstruction Recurrent falls, fall precautions, working with PT and OT Dysphagia, continues to work with speech therapy, diet upgraded to regular diet with thin liquids. Tolerating. Hard stools yesterday will increase senna S2 tabs twice daily Discontinue sliding scale maintain current regimen patient is on the NPH and Lantus which is not ideal but due to chronic issues with his diabetes we will continue with this regimen and defer to PCP for management outpatient. Medications reviewed and up to date This document was transcribed using dictation software and may contain typographical errors. Renae Kirby RN, am scribing for , and in the presence of Dr. Miner. I, Dr. Miner, personally performed the services described in this documentation, as scribed by, Renae GUZMAN in my presence and it is both accurate and complete. Digitally Signed by BENJAMIN MINER DO on 05/19/2023 03:57 PM [id number] Podiatry Consult note Date of Service 05/08/2023 Reason for Consultation Footcare Referring Physician Dr. Becerril History of Present Illness Patient is a 62-year-old male consulted for footcare. He is admitted to [facility] for inpatient rehabilitation and medical management. Admitted to [facility] previously for CHF exacerbation and hypoxic respiratory failure. Patient has complaint of elongated toenails. He is unable to cut the toenails. Denies open sores of the feet. Review of Systems Denies N/V/F/C or D. Denies SOB or chest pain. Denies calf pain. Denies burning, tingling, or numbness. ROS otherwise normal apart from previously documented in HPI Physical Exam Vitals and Measurements T: 36.5 C (Oral) TMIN: 35.9 C (Temporal Artery) TMAX: 36.7 C (Oral) HR: 66(Apical) RR: 16 BP: 146/72 SpO2: 95% WT: 118.6 kg Weight Current Weight Dosing Weight: 118 kg (05/17/23) Current Weight: 118.6 kg (05/18/23) Dosing Weight: 118.4 kg (05/16/23) Current Weight: 118.4 kg (05/16/23) Patient alert and oriented x3. Breathing easily. VASC: DP and PT pulses palpable b/l. CFT brisk to digits b/l. Skin temperature warm to warm, proximal to distal b/l. NEURO: Gross sensation intact to the plantar foot b/l. DERM: Nails 1-5 b/l elongated, thickened, and discolored. Subungual debris noted. Webspaces 1-4 b/lclean and dry. No hyperkeratoses noted. No open lesions noted. No subcutaneous nodules noted. MUSC: Muscle strength 5/5 for dorsiflexors, plantarflexors, inverters, and everters b/l. Lab Results No 36 Hour Lab Data Assessment/Plan Acute ischemic left MCA stroke Aortic stenosis with bicuspid valve HLD (hyperlipidemia) HTN (hypertension) Morbid obesity Sleep apnea Onychomycosis After evaluation, I discussed my findings at length with the patient. I educated the patient on theclinical findings as well as the diagnosis and treatment recommendations. Recommend toenail debridement today. Debridement of the toenails 1-5 b/l in length and thickness. Right and left hallux debrided 0.3cm in length and 0.1cm in thickness. Right and left 2nd digit debrided 0.3cm in length and 0.1cm in thickness. Right and left 3rd digit debrided 0.3cm in length and 0.1cm in thickness. Right and left 4th digit debrided 0.2cm in length and 0.1cm in thickness. Right and left 5th digit debrided 0.1cm in length and 0.1cm in thickness. A nail curette was used to remove any subungual debris. Nail debridement was without incident Problem List/Past Medical History Ongoing Bipolar Chronic back pain greater than three months duration HTN (hypertension) Obesity Sleep apnea Historical No qualifying data Procedure/Surgical History AVR - Aortic valve replacement Surgery Elbow Carpal tunnel release Medications Inpatient albuterol, 2.5 mg= 3 mL, Inhalation, q4hRT, PRN albuterol 2.5 mg/3 mL (0.083%) inhalation solution, 2.5 mg= 3 mL, Inhalation, QIDRT amiodarone, 200 mg= 1 tab(s), Oral, qDay amLODIPine, 5 mg= 1 tab(s), Oral, qDay ammonium lactate 12% topical cream, 1 application, Topical, AsDirected, PRN apixaban, 5 mg= 1 tab(s), Oral, BID atorvastatin, 10 mg= 1 tab(s), Oral, qHS budesonide 0.5 mg/2 mL inhalation suspension, 0.5 mg= 2 mL, Inhalation, BIDRT Bumex, 2 mg= 2 tab(s), Oral, BID Centrum, 1 tab(s), Oral, qDay Colace, 100 mg= 1 cap(s), Oral, BID, PRN Desenex 2% topical powder, 1 nan, Topical, BID Dextrose 50% IV Push, 12.5 gram(s)= 25 mL, IV Push, AsDirected, PRN GlucaGen, 1 mg= 1 mL, Intramuscular, AsDirected, PRN glucose, 16 gram(s)= 4 tab(s), Chewed, AsDirected, PRN glycerin adult rectal suppository, 1 supp, Rectal, Daily, PRN guaiFENesin 100 mg/5 mL oral liquid, 200 mg= 10 mL, Oral, q6h, PRN HumaLOG 100 units/mL injectable solution VIAL, 0-10 unit(s), Subcutaneous, TIDM insulin isophane (NPH), 38 unit(s)= 0.38 mL, Subcutaneous, Daily Lantus, 12 unit(s)= 0.12 mL, Subcutaneous (INT), acSupper Maalox, 30 mL, Oral, q6h, PRN melatonin, 5 mg= 1 tab(s), Oral, qHS metoprolol tartrate 25 mg oral tablet, 37.5 mg= 3 EA, Oral, BID Milk of Magnesia, 30 mL, Oral, qHS, PRN Miralax Powder Packet, 17 gram(s)= 15 mL, Oral, qDay, PRN pantoprazole, 40 mg= 1 tab(s), Oral, qDay pregabalin 100 mg oral capsule, 100 mg= 2 cap(s), Oral, BID pregabalin 200 mg oral capsule, 200 mg= 4 cap(s), Oral, qHS Restoril, 15 mg= 2 cap(s), Oral, qHS, PRN senna, 8.6 mg= 1 tab(s), Oral, BID traMADol, 50 mg= 1 tab(s), Oral, q4h, PRN traMADol, 100 mg= 2 tab(s), Oral, q4hr, PRN Tylenol, 650 mg= 2 tab(s), Oral, q4h, PRN zinc oxide 20% topical ointment, 1 application, Topical, BID Zofran, 4 mg= 1 tab(s), Oral, q6hr, PRN Home acetaminophen 650 mg oral tablet, extended release, 650 mg= 1 tab(s), Oral, BID, PRN albuterol MDI (90 mcg/inh) CFC free inhalation aerosol, 2 puff(s), Inhalation, q4h, PRN amiodarone 200 mg oral tablet, 200 mg= 1 tab(s), Oral, qDay amLODIPine 5 mg oral tablet, 5 mg= 1 tab(s), Nasogastric, qDay ammonium lactate 12% topical cream, 1 application, Topical, PRN apixaban 5 mg oral tablet, 5 mg= 1 tab(s), Oral, BID, 2 refills atorvastatin 10 mg oral tablet, 10 mg= 1 tab(s), Oral, qHS Centrum, 1 tab(s), Oral, qDay docusate sodium 10 mg/mL oral liquid, 100 mg= 10 mL, Oral, BID furosemide 40 mg oral tablet, 40 mg= 1 tab(s), Oral, BID guaiFENesin 100 mg/5 mL oral liquid, 200 mg= 10 mL, Oral, q6h, PRN insulin glargine, 16 unit(s), Subcutaneous, acSupper insulin isophane (NPH), 38 unit(s), Subcutaneous, Daily insulin lispro (Humalog) 100 units/mL injectable solution, Sliding Scale, Subcutaneous, TIDM metoprolol tartrate 37.5 mg oral tablet, 37.5 mg= 1 tab(s), Oral, BID pantoprazole, 40 mg, Oral, qDay polyethylene glycol 3350 oral powder for reconstitution, 17 gram(s), Oral, Daily pregabalin 100 mg oral capsule, 100 mg= 1 cap(s), Oral, BID pregabalin 200 mg oral capsule, 200 mg= 1 cap(s), Oral, qHS senna (sennosides) 8.8 mg/5 mL oral syrup, 8.8 mg= 5 mL, Oral, BID Symbicort 80 mcg-4.5 mcg/inh Inhaler, 2 puff(s), Inhalation, BID zinc oxide 13% topical cream, 1 application, Topical, BID Allergies Flonase (Nosebleed) penicillin (Rash) Social History Smoking Status - 05/07/2013 Current every day smoker Tobacco Nicotine Use: Never (less than 100 in lifetime)., 04/06/2023 Immunizations SARS-CoV-2 mRNA (tozinameran) vaccine: 0.3 unknown unit (10/22/20) SARS-CoV-2 mRNA (tozinameran) vaccine: 0.3 unknown unit (09/17/20) Digitally Signed by ALLISON SINGH DPM on 05/18/2023 03:47 PM [id number] Miscellaneous Notes* Telephone Encounter - Allison Omalley MA - 05/18/2023 2:00 PM EDT Nitza with [facility] informed Dr. Arthur will follow. Allison Omalley MA * Telephone Encounter - Alyson Arthur MD - 05/18/2023 12:14 PM EDT Ok to do * Telephone Encounter - Apple Allen RN - 05/18/2023 12:02 PM EDT Nitza from [facility] calls and states that patient is being discharged from [facility] on 05/20/2023. Nitza asking if provider willing to follow patient with orders for prison,physical therapy, occupational therapy, and home health aide. If agreeable please give Nitza a call back , extension [phone]. Thank you, Apple Allen RN [facility] Note Subjective patient states he is feeling good this morning, states he got a good night sleep last night. He denies any further nausea/vomiting. Denies abdominal pain. States that his bowel and bladder are functioning on a normal basis. Any further constipation. Denies any diarrhea. States breathing is comfortable. Feels he is making good progress therapy and tolerating current medication regiment. Blood sugar 117 175, denies any hypoglycemic reaction. He states his appetite is good and he is staying well-hydrated Objective General: Alert, oriented NAD. Appears comfortable sitting wheelchair, no signs of acute pain, he iscalm and cooperative, interactive and talkative. Good eye contact HEENT: No nasal drainage, EOMI, MMM Respiratory: LCTA nonlabored on room air; no cough or congestion Cardiovascular: Heart rate regular with no tachycardia or heart murmur Edema/Varicosities of Extremities: 2+ edema RLE, 3+ edema LLE; IVY hose on Gastrointestinal: Abdomen soft, nondistended, nontender with bowel sounds present x 4 Genitourinary: No CVA tenderness, no suprapubic tenderness, no bladder distention. Skin: Sternal incision looking good, well-approximated, healing Neurological: Dysarthria, right upper extremity weakness VITALS [id number](kg) 05/16 22:46----030602--72/11377.0 05/16 21:0336.7--[id number]/02345.4 05/16 16:37----89----RA03/84902.0 05/16 16:3236.6--[id number] 05/16 07:5036.5--[id number] 24 Hr Tmax: 36.7 at 05/16 21: 36 Hr Tmax: 36.7 at 05/16 21:03 Vital Signs are the last 5 in the past 48 hours. Weights display the last 5 within 7 days. Initial Wt: 04/27 119.4 kg 263 lb Current Wt: 05/16 118.0 kg 260 lb LABS No 36 Hour Lab Data Medications Active Inpt Meds: albuterol (albuterol 2.5 mg/3 mL (0.083%) inhalation solution) Start: 04/27/23 21:45:00 EDT, Dose =2.5 mg, = 3 mL, Inhalation, QIDRT, 0, 04/27/23 21:12:00 EDT amLODIPine Start: 05/03/23 9:00:00 EDT, Dose = 5 mg, = 1 tab(s), Oral, qDay, 1st dose location: [facility], 1, 05/02/23 10:39:00 EDT amiodarone Start: 04/27/23 21:12:00 EDT, Dose = 200 mg, = 1 tab(s), Oral, qDay, 04/27/23 21:12:00 EDT apixaban Start: 04/27/23 21:12:00 EDT, Dose = 5 mg, = 1 tab(s), Oral, BID, Indication for Use Atrial fibrillation, 04/27/23 21:12:00 EDT atorvastatin Start: 04/27/23 21:12:00 EDT, Dose = 10 mg, = 1 tab(s), Oral, qHS, 04/27/23 21:12:00 EDT budesonide (budesonide 0.5 mg/2 mL inhalation suspension) Start: 04/27/23 21:48:00 EDT, Dose = 0.5 mg, = 2 mL, Inhalation, BIDRT, 0, 04/27/23 21:12:00 EDT bumetanide (Bumex) Start: 05/11/23 9:00:00 EDT, Dose = 2 mg, = 2 tab(s), Oral, BID, 05/11/23 8:18:00 EDT insulin glargine (Lantus) Start: 05/10/23 16:00:00 EDT, Dose = 12 unit(s), = 0.12 mL, Subcutaneous (INT), acSupper, Rate: 0 mL/hr, Infuse over: 0 minute(s), 05/10/23 9:48:00 EDT insulin isophane (NPH) Start: 05/11/23 7:30:00 EDT, Dose = 38 unit(s), = 0.38 mL, Subcutaneous, Daily, 05/11/23 7:30:00 EDT insulin lispro (HumaLOG) (HumaLOG 100 units/mL injectable solution VIAL) Start: 04/28/23 9:48:00 EDT, 0-10 unit(s), Subcutaneous, TIDM, 0, 04/28/23 9:48:00 EDT melatonin Start: 05/02/23 21:00:00 EDT, Dose = 5 mg, = 1 tab(s), Oral, qHS, 05/02/23 7:18:00 EDT metoprolol (metoprolol tartrate 25 mg oral tablet) Start: 04/27/23 21:13:00 EDT, Dose = 37.5 mg, = 3 EA, Oral, BID, 0, 04/27/23 21:13:00 EDT miconazole topical (Desenex 2% topical powder) Start: 05/17/23 21:00:00 EDT, Dose = 1 nan, Topical,BID, Apply to: Groin and Abd Folds, Powder, 05/17/23 21:00:00 EDT multivitamin with minerals (Centrum) Start: 04/27/23 21:13:00 EDT, Dose = 1 tab(s), Tab, Oral, qDay, 04/27/23 21:13:00 EDT pantoprazole Start: 04/27/23 21:13:00 EDT, Dose = 40 mg, = 1 tab(s), Oral, qDay, 0, 04/27/23 21:13:00 EDT pregabalin (pregabalin 100 mg oral capsule) Start: 04/27/23 21:13:00 EDT, Dose = 100 mg, = 2 cap(s), Oral, BID, 0, 04/27/23 21:13:00 EDT pregabalin (pregabalin 200 mg oral capsule) Start: 04/27/23 21:13:00 EDT, Dose = 200 mg, = 4 cap(s), Oral, qHS, 0, 04/27/23 21:13:00 EDT senna Start: 04/28/23 9:00:00 EDT, Dose = 8.6 mg, = 1 tab(s), Oral, BID, 0, 04/28/23 8:34:00 EDT zinc oxide topical (zinc oxide 20% topical ointment) Start: 04/28/23 6:00:00 EDT, 1 application, Topical, BID, Apply to: buttocks., Ointment, 04/27/23 21:14:00 EDT Active PRN Meds: Al hydroxide/Mg hydroxide/simethicone (Maalox) Start: 04/27/23 21:21:00 EDT, Dose = 30 mL, Susp, Oral, q6h, PRN, Indigestion, 04/27/23 21:21:00 EDT acetaminophen (Tylenol) Start: 04/27/23 21:21:00 EDT, Dose = 650 mg, = 2 tab(s), Oral, q4h, PRN, Muscle pain, 04/27/23 21:21:00 EDT albuterol Start: 04/27/23 21:12:00 EDT, Dose = 2.5 mg, = 3 mL, Inhalation, q4hRT, PRN, as needed for shortness of breath or wheezing, 0, 04/27/23 21:12:00 EDT ammonium lactate topical (ammonium lactate 12% topical cream) Start: 04/27/23 21:46:00 EDT, 1 application, Topical, AsDirected, PRN, Dry skin, Apply to: B legs, Cream, 04/27/23 21:12:00 EDT docusate (Colace) Start: 04/27/23 21:21:00 EDT, Dose = 100 mg, = 1 cap(s), Oral, BID, PRN, Constipation, 04/27/23:21:00 EDT glucagon (GlucaGen) Start: 04/27/23:21:00 EDT, Dose = 1 mg, = 1 mL, Intramuscular, AsDirected, PRN, Hypoglycemia, if unresponsive, NO IV ACCESS & blood glucose less than 70mg/dL. If still unresponsive after 2 minutes, REPEAT x1., 04/27/23:21:00 EDT glucose (Dextrose 50% IV Push) Start: 04/27/23 21:21:00 EDT, Dose = 12.5 gram(s), = 25 mL, IV Push,AsDirected, PRN, Hypoglycemia, if unresponsive WITH IV ACCESS & blood glucose less than 70mg/dL. If still unresponsive after 2 minutes, REPEAT x1., 04/27/23:21:00 EDT glucose Start: 04/27/23 21:21:00 EDT, Dose = 16 gram(s), = 4 tab(s), Chewed, AsDirected, PRN, Hypoglycemia, DIABETIC PATIENT if responsive & blood glucose less than 70mg/dL. If blood glucose less than 70mg/dL after 15 minutes, REPEAT x1., 0, 04/27/23 21:2... glycerin (glycerin adult rectal suppository) Start: 04/27/23:21:00 EDT, Dose = 1 supp, Supp, Rectal, Daily, PRN, Constipation, 04/27/23 21:21:00 EDT guaiFENesin (guaiFENesin 100 mg/5 mL oral liquid) Start: 04/27/23 21:13:00 EDT, Dose = 200 mg, = 10mL, Oral, q6h, PRN, Cough, 0, 04/27/23 21:13:00 EDT magnesium hydroxide (Milk of Magnesia) Start: 04/27/23 21:21:00 EDT, Dose = 30 mL, Susp-Oral, Oral,qHS, PRN, Constipation, 04/27/23 21:21:00 EDT ondansetron (Zofran) Start: 05/09/23 7:37:00 EDT, Dose = 4 mg, = 1 tab(s), Oral, q6hr, PRN, Nausea,05/09/23 7:37:00 EDT polyethylene glycol 3350 (Miralax Powder Packet) Start: 04/27/23 21:21:00 EDT, Dose = 17 gram(s), =15 mL, Oral, qDay, PRN, Constipation, 04/27/23 21:21:00 EDT temazepam (Restoril) Start: 05/07/23 1:31:00 EDT, Dose = 15 mg, = 2 cap(s), Oral, qHS, PRN, Sleep, 0, 05/05/23 7:21:00 EDT traMADol Start: 04/29/23 12:08:00 EDT, Dose = 50 mg, = 1 tab(s), Oral, q4h, PRN, Pain, scale 1-6, 04/29/23 12:08:00 EDT traMADol Start: 05/04/23 8:08:00 EDT, Dose = 100 mg, = 2 tab(s), Oral, q4hr, PRN, Pain, scale 7-10,0, 05/04/23 8:08:00 EDT One Time Meds: None Active IV Meds: None Problems (12) Acute ischemic left MCA stroke ([id number]) Aortic stenosis with bicuspid valve (768671582) Bipolar (178389242) Chronic back pain greater than three months duration ([id number]) COPD (chronic obstructive pulmonary disease) (78809532) Fall (0314038) Fever (7092584348) HLD (hyperlipidemia) (57626486) HTN (hypertension) ([id number]) Morbid obesity (262749791) Obesity ([id number]) Sleep apnea ([id number]) ASSESSMENT/PLAN: Severe aortic stenosis status post aortic valve replacement as well as repair of the ascending aorta with extensive complicated postoperative course. Follow-up with cardiology scheduled 05/25 Acute ischemic infarct involving the left MCA territory, risk factor modification diabetic and blood pressure control, aspirin plus statin. Follow-up with neurology 05/28 New onset atrial fibrillation, cleared for anticoagulation with Eliquis Hyperlipidemia on atorvastatin, tolerating without myalgias Hypertension amlodipine and metoprolol. Monitoring blood pressures closely Acute hypoxic respiratory failure oxygen in place, breathing comfortably on room air. Hyperkalemia during hospitalization, losartan was discontinued, monitoring lab work closely. Blood pressures stable COPD with mild exacerbation DuoNebs plus budesonide; continues to breathe comfortably on room air Type 2 diabetes on Lantus at supper, Humalog with meals, NPH and sliding scale. Blood sugars showing better control with decreasing Lantus. Acute on chronic low back pain, pain management notes reviewed patient will continue with the Lyrica. Tylenol and Tramadol 1 or 2 tabs PRN. Denies any uncontrolled pain GI prophylaxis, Protonix Opioid induced constipation, continues with senna. As needed bowel regimen available. DVT prophylaxis continues Eliquis Dysarthria plus dysphagia, speech therapy, NG tube out. Diet upgraded to regular diet with thin liquids. Right upper extremity flaccid hemiparesis Right-sided weakness, working with PT and OT services EEG showing mild cortical dysfunction in the left hemisphere but no seizures Right upper extremity edema noted to have a superficial venous thrombosis treated supportively Morbid obesity Small bowel obstruction, currently resolved, reevaluating bowels close abdominal exam benign. Reports bowels are moving. Diverticulitis resolved, antibiotics complete Moderate pericardial effusion without tamponade noted on echo trending volume status Acute diastolic CHF with increased bilateral lower extremity edema. Most recent BNP improved at 442. We did discontinue Lasix and did initiate Bumex 2 mg twice daily. Continue with low-sodium diet and daily weights. Edema is showing improvement. Continue with close clinical monitoring, cardiology team consulted, note reviewed from 05/14. Appreciate input. Eliquis initiated for underlying A-fib, CT imaging the hospital showed subacute infarct of the posterior left frontal lobe without hemorrhage Low back pain, addition of tramadol 50 mg as well as 100 mg every 4 hours as needed for breakthrough pain, high utilization at the present time continue to monitor for any evidence of constipation especially given recent small bowel obstruction Insomnia, melatonin 5 at bedtime as well as increased dose of as needed Restoril. Medications effective Recurrent falls, fall precautions, working with PT and OT Nausea with abdominal pain and decreased p.o. intake. KUB was obtained 05/09 showing improved gas pattern. Abdominal exam benign at this time no further evidence of obstruction Dysphagia, continues to work with speech therapy, diet upgraded to regular diet with thin liquids. Tolerating. Responding well to the Bumex 2 mg twice daily Bowel regimen de-escalated to just the senna twice daily, MiraLAX and Colace discontinued, current abdominal exam benign symptoms showing improvement. Does have as needed bowel regimen if indicated Medications reviewed and up to date This document was transcribed using dictation software and may contain typographical errors. Renae Kirby RN, am scribing for , and in the presence of Dr. Miner. IDr. Miner, personally performed the services described in this documentation, as scribed byRenae RN in my presence and it is both accurate and complete. Digitally Signed by BENJAMIN MINER DO on 05/18/2023 02:17 PM [id number] Physical medicine and rehab Progress note Rehab Note Chief Complaint: Seeing this patient for reevaluation of therapy progress and generalized weakness,left MCA infarct, abdominal pain, nausea History of Present Illness: Seeing this patient for reevaluation of therapy progress and generalized weakness, left MCA infarct. Patient participates in acute inpatient rehabilitation with PT, OT andST services. 62-year-old male who was sent to the emergency department from [facility] inpatient rehabilitation unit with abdominal pain, vomiting, fevers. CT of abdomen/pelvis showed mechanical SBO andpossible pneumatosis and moderate pericardial effusion. General surgery was consulted, NG tube was placed, then discontinued on 04/23. Echocardiogram showing moderate pericardial effusion, not felt tamponade physiology. CT of head showed subacute infarct posterior left frontal lobe, no hemorrhage. Past medical history includes morbid obesity, diabetes mellitus type 2, COPD, CAD, bipolar, hypertension, hyperlipidemia, obstructive sleep apnea, bicuspid aortic stenosis and diastolic heart failure. Today patient is sitting in chair in room visiting with son, reports he is doing well and getting much better, states he is getting more movement in right arm, denies any uncontrolled pain or discomfor t this a.m. Discussed with nursing. Medication reviewed. Goal is return home with spouse and son with home health care services. Tentative discharge date 05/20/2023. Medication List Active Medications Ordered acetaminophen: 650 mg, 2 tab(s), Oral, q4h, PRN: Muscle pain. albuterol: 2.5 mg, 3 mL, Inhalation, q4hRT, PRN: as needed for shortness of breath or wheezing. albuterol: 2.5 mg, 3 mL, Inhalation, QIDRT. Al hydroxide/Mg hydroxide/simethicone: 30 mL, Oral, q6h, PRN: Indigestion. amiodarone: 200 mg, 1 tab(s), Oral, qDay. amLODIPine: 5 mg, 1 tab(s), Oral, qDay. ammonium lactate topical: 1 application, Topical, AsDirected, PRN: Dry skin. apixaban: 5 mg, 1 tab(s), Oral, BID. atorvastatin: 10 mg, 1 tab(s), Oral, qHS. budesonide: 0.5 mg, 2 mL, Inhalation, BIDRT. bumetanide: 2 mg, 2 tab(s), Oral, BID. docusate: 100 mg, 1 cap(s), Oral, BID, PRN: Constipation. glucagon: 1 mg, 1 mL, Intramuscular, AsDirected, PRN: Hypoglycemia. glucose: 12.5 gram(s), 25 mL, IV Push, AsDirected, PRN: Hypoglycemia. glucose: 16 gram(s), 4 tab(s), Chewed, AsDirected, PRN: Hypoglycemia. glycerin: 1 supp, Rectal, Daily, PRN: Constipation. guaiFENesin: 200 mg, 10 mL, Oral, q6h, PRN: Cough. insulin glargine: 12 unit(s), 0.12 mL, 0 mL/hr, Subcutaneous (INT), acSupper. insulin isophane (NPH): 38 unit(s), 0.38 mL, Subcutaneous, Daily. insulin lispro (HumaLOG): 0-10 unit(s), Subcutaneous, TIDM. magnesium hydroxide: 30 mL, Oral, qHS, PRN: Constipation. melatonin: 5 mg, 1 tab(s), Oral, qHS. metoprolol: 37.5 mg, 3 EA, Oral, BID. multivitamin with minerals: 1 tab(s), Oral, qDay. ondansetron: 4 mg, 1 tab(s), Oral, q6hr, PRN: Nausea. pantoprazole: 40 mg, 1 tab(s), Oral, qDay. polyethylene glycol 3350: 17 gram(s), 15 mL, Oral, qDay, PRN: Constipation. pregabalin: 100 mg, 2 cap(s), Oral, BID. pregabalin: 200 mg, 4 cap(s), Oral, qHS. senna: 8.6 mg, 1 tab(s), Oral, BID. temazepam: 15 mg, 2 cap(s), Oral, qHS, PRN: Sleep. traMADol: 50 mg, 1 tab(s), Oral, q4h, PRN: Pain, scale 1-6. traMADol: 100 mg, 2 tab(s), Oral, q4hr, PRN: Pain, scale 7-10. zinc oxide topical: 1 application, Topical, BID. Prescribed apixaban: 5 mg, 1 tab(s), Oral, BID, 60 tab(s), 2 Refill(s). Documented acetaminophen: 650 mg, 1 tab(s), Oral, BID, PRN: as needed for pain. albuterol: 2 puff(s), Inhalation, q4h, PRN: as needed for wheezing, 8.5 gram(s), 0 Refill(s). amiodarone: 200 mg, 1 tab(s), Oral, qDay, 30 tab(s), 0 Refill(s). amLODIPine: 5 mg, 1 tab(s), Nasogastric, qDay, 30 tab(s), 0 Refill(s). ammonium lactate topical: 1 application, Topical, PRN: as needed dry skin, 0 Refill(s). atorvastatin: 10 mg, 1 tab(s), Oral, qHS. budesonide-formoterol: 2 puff(s), Inhalation, BID, 0 Refill(s). docusate: 100 mg, 10 mL, Oral, BID. furosemide: 40 mg, 1 tab(s), Oral, BID, 0 Refill(s). guaiFENesin: 200 mg, 10 mL, Oral, q6h, PRN: as needed for cough. insulin glargine: 16 unit(s), Subcutaneous, acSupper, 0 Refill(s). insulin isophane (NPH): 38 unit(s), Subcutaneous, Daily, 0 Refill(s). insulin lispro (HumaLOG): Sliding Scale, Subcutaneous, TIDM, 10 mL, 0 Refill(s). metoprolol: 37.5 mg, 1 tab(s), Oral, BID, 180 tab(s), 0 Refill(s). multivitamin with minerals: 1 tab(s), Oral, qDay, 0 Refill(s). pantoprazole: 40 mg, Oral, qDay, 0 Refill(s). polyethylene glycol 3350: 17 gram(s), Oral, Daily, 0 Refill(s). pregabalin: 200 mg, 1 cap(s), Oral, qHS, 0 Refill(s). pregabalin: 100 mg, 1 cap(s), Oral, BID, 60 cap(s), 0 Refill(s). senna: 8.8 mg, 5 mL, Oral, BID, 0 Refill(s). zinc oxide topical: 1 application, Topical, BID, 0 Refill(s). Medications Inactivated in the Last 72 Hours albuterol: Miscellaneous, Once. docusate: 100 mg, 1 cap(s), Oral, BID. polyethylene glycol 3350: 17 gram(s), 15 mL, Oral, Daily. pregabalin: Miscellaneous, Once. pregabalin: Miscellaneous, Once. Social history: Social support: Lives with spouse Home set-up: Single level home. First-floor bedroom, bathroom, laundry Barriers to discharge: Time since onset, safety awareness, past medical history Review of Systems: General: Appetite is good. Modified diet minced/moist with mildly thick liquids Respiratory: Denies shortness of breath, denies cough Cardiovascular: Denies chest pain, denies palpitations Gastrointestinal: Denies nausea, vomiting, diarrhea or constipation. Genitourinary: Denies suprapubic pain or tenderness, no dysuria Musculoskeletal: No uncontrolled pain. Psychiatric: No reported change in cognition Vitals Signs(Last 24 hrs)__Last Charted Minimum Maximum Heart Rate76(MAY 15 16:04)70(MAY 15 07:58)76(MAY 15 16:04) SJS039(MAY 15 23:45)128(MAY 15 23:45)H 146(MAY 15 07:58) DBP70(MAY 15 23:45)68(MAY 15 07:58)70(MAY 15 23:45) Physical Exam: General: No acute distress. Appears comfortable sitting in chair visiting with son Respiratory: Lungs are clear to auscultation. Respirations nonlabored on room air. No conversational dyspnea, no cough, no congestion Cardiovascular: Regular rate and rhythm. No murmur. No bradycardia. No tachycardia. Gastrointestinal: Abdomen is soft nontender nondistended. Bowel sounds normal x4. Arterial: 2/4 distal pulses bilateral lower extremities Edema: Trace edema bilateral lower extremities. No calf tenderness. Tubigrips bilateral lower extremities. Musculoskeletal: Mild polyarthritis Spinal Curvatures: Slight increased thoracic kyphosis. No spinal or paraspinal tenderness Weight bearing status/transfers/ADLs: Weightbearing as tolerated. Ambulated 10 feet with gait belt and bariatric walker. Touch assist for sit to stand. Touch assist for chair to bed transfer. Touch assist walk 10 feet. Touch assist walk 50 feet to turn. Modified independence with 80% accuracy for oral agility. Modified independence with 80% accuracy for motor exercises. Modified independence with80% accuracy is for speech intelligibility at conversational level Skin: Intact, thin and dry. Neurological: Cranial nerves intact Normal sensation distally Dysarthric speech 4+/5 left upper extremity strength 2 -/5 right upper extremity strength with increased tone. Right arm edema 5/5 left lower extremity strength 4 -/5 right lower extremity strength Decreased right hand grasp Normal left hand grasp Decreased shoulder range of motion bilaterally right worse than left 2/4 left upper and lower extremity reflexes 3/4 right upper and lower extremity reflexes Psychiatric: Alert. Oriented. Pleasant. Cooperative. Flat affect. Assessment: Status post left MCA stroke following AVR ascending repair. Status post readmission forsmall bowel obstruction. Diabetes mellitus. GERD. Obesity. Plan: Continue acute rehabilitation physical occupational and speech therapy services. Case discussed with family. Plan Home for 624 with home care services. Encouraged forced use. Educated regardingbowel routine to avoid constipation. Plan neurology cardiology follow-up post discharge Risks/benefits of meds, treatments considered. Therapy notes reviewed. Discussed with staff. PMH/SH reviewed and unchanged Note: This dictation was created with assistance of voice recognition software. Phonic and/or minorgrammatical errors may exist. Medications reviewed and are up to date IWilder LPN, am scribing for, and in the presence of Dr. Jone AGUILERA. I, Dr. Jone AGUILERA , personally performed the services described in this documentation, as described by Wilder Whitmore LPN in my presence and it is both accurate and complete. Digitally Signed by MALIA BECERRIL DO on 05/17/2023 01:16 PM Leland [id number] Note Subjective Patient states he is doing good this morning. Denies any shortness of breath or conversational dyspnea. States breathing is comfortable with SpO2 ranging 93-95% on room air. Denies any cough or congestion. Reports improvement in loose stools with the discontinuation of Colace and MiraLAX. Denies any abdominal pain, nausea, or vomiting. Denies any constipation. Reports appetite is good. Blood sugars are ranging 132-226 and denies any glycemic reactions. Denies any fevers or chills. States therapies are going well and does continue with the chronic pain to the bilateral extremities, utilizing as needed tramadol. Denies any uncontrolled pain. Objective General: Alert and oriented, no acute distress. Sitting up in wheelchair eating breakfast, appears comfortable, and does not appear in acute pain. Pleasant and cooperative. Good eye contact with flataffect. HEENT: No nasal drainage, EOMI, moist mucous membranes Respiratory: Lungs diminished but clear. Respirations are unlabored on room air. No cough, congestion, or conversational dyspnea Cardiovascular: Heart rate is regular. No bradycardia, tachycardia, or heart murmur Edema/Varicosities of Extremities: 2+ edema to the bilateral extremities. IVY hose in place to the bilateral lower extremities Gastrointestinal: Bowel sounds are hypoactive in all 4 quadrants. Abdomen is nontender, soft, and nondistended. Genitourinary: No CVA tenderness, no suprapubic tenderness, and no bladder distention. Skin: Sternal incision healing well, no signs or symptoms of infection. Neurological: Dysarthria, right upper extremity weakness VITALS [id number](kg) 05/15 23:4536.4--[id number]/57421.4 05/15 20:3136.0--936353PV11/64137.0 05/15 16:04----76----RA03/22638.6 05/15 10:39 0.0L/m 05/15 08:18----70----RA 24 Hr Tmax: 36.4 at 05/15 23:45 36 Hr Tmax: 36.4 at 05/15 23:45 Vital Signs are the last 5 in the past 48 hours. Weights display the last 5 within 7 days. Initial Wt: 04/27 119.4 kg 263 lb Current Wt: 05/15 118.4 kg 260 lb LABS No 36 Hour Lab Data Medications Active Inpt Meds: albuterol (albuterol 2.5 mg/3 mL (0.083%) inhalation solution) Start: 04/27/23 21:45:00 EDT, Dose =2.5 mg, = 3 mL, Inhalation, QIDRT, 0, 04/27/23 21:12:00 EDT amLODIPine Start: 05/03/23 9:00:00 EDT, Dose = 5 mg, = 1 tab(s), Oral, qDay, 1st dose location: [place] [id number], 05/02/23 10:39:00 EDT amiodarone Start: 04/27/23 21:12:00 EDT, Dose = 200 mg, = 1 tab(s), Oral, qDay, 04/27/23 21:12:00 EDT apixaban Start: 04/27/23 21:12:00 EDT, Dose = 5 mg, = 1 tab(s), Oral, BID, Indication for Use Atrial fibrillation, 04/27/23 21:12:00 EDT atorvastatin Start: 04/27/23 21:12:00 EDT, Dose = 10 mg, = 1 tab(s), Oral, qHS, 04/27/23 21:12:00 EDT budesonide (budesonide 0.5 mg/2 mL inhalation suspension) Start: 04/27/23 21:48:00 EDT, Dose = 0.5 mg, = 2 mL, Inhalation, BIDRT, 0, 04/27/23 21:12:00 EDT bumetanide (Bumex) Start: 05/11/23 9:00:00 EDT, Dose = 2 mg, = 2 tab(s), Oral, BID, 05/11/23 8:18:00 EDT insulin glargine (Lantus) Start: 05/10/23 16:00:00 EDT, Dose = 12 unit(s), = 0.12 mL, Subcutaneous (INT), acSupper, Rate: 0 mL/hr, Infuse over: 0 minute(s), 05/10/23 9:48:00 EDT insulin isophane (NPH) Start: 05/11/23 7:30:00 EDT, Dose = 38 unit(s), = 0.38 mL, Subcutaneous, Daily, 05/11/23 7:30:00 EDT insulin lispro (HumaLOG) (HumaLOG 100 units/mL injectable solution VIAL) Start: 04/28/23 9:48:00 EDT, 0-10 unit(s), Subcutaneous, TIDM, 0, 04/28/23 9:48:00 EDT melatonin Start: 05/02/23 21:00:00 EDT, Dose = 5 mg, = 1 tab(s), Oral, qHS, 05/02/23 7:18:00 EDT metoprolol (metoprolol tartrate 25 mg oral tablet) Start: 04/27/23 21:13:00 EDT, Dose = 37.5 mg, = 3 EA, Oral, BID, 0, 04/27/23 21:13:00 EDT multivitamin with minerals (Centrum) Start: 04/27/23 21:13:00 EDT, Dose = 1 tab(s), Tab, Oral, qDay, 04/27/23 21:13:00 EDT pantoprazole Start: 04/27/23 21:13:00 EDT, Dose = 40 mg, = 1 tab(s), Oral, qDay, 0, 04/27/23 21:13:00 EDT pregabalin (pregabalin 100 mg oral capsule) Start: 04/27/23 21:13:00 EDT, Dose = 100 mg, = 2 cap(s), Oral, BID, 0, 04/27/23 21:13:00 EDT pregabalin (pregabalin 200 mg oral capsule) Start: 04/27/23 21:13:00 EDT, Dose = 200 mg, = 4 cap(s), Oral, qHS, 0, 04/27/23 21:13:00 EDT senna Start: 04/28/23 9:00:00 EDT, Dose = 8.6 mg, = 1 tab(s), Oral, BID, 0, 04/28/23 8:34:00 EDT zinc oxide topical (zinc oxide 20% topical ointment) Start: 04/28/23 6:00:00 EDT, 1 application, Topical, BID, Apply to: buttocks., Ointment, 04/27/23 21:14:00 EDT Active PRN Meds: Al hydroxide/Mg hydroxide/simethicone (Maalox) Start: 04/27/23 21:21:00 EDT, Dose = 30 mL, Susp, Oral, q6h, PRN, Indigestion, 04/27/23 21:21:00 EDT acetaminophen (Tylenol) Start: 04/27/23 21:21:00 EDT, Dose = 650 mg, = 2 tab(s), Oral, q4h, PRN, Muscle pain, 04/27/23 21:21:00 EDT albuterol Start: 04/27/23 21:12:00 EDT, Dose = 2.5 mg, = 3 mL, Inhalation, q4hRT, PRN, as needed for shortness of breath or wheezing, 0, 04/27/23 21:12:00 EDT ammonium lactate topical (ammonium lactate 12% topical cream) Start: 04/27/23 21:46:00 EDT, 1 application, Topical, AsDirected, PRN, Dry skin, Apply to: B legs, Cream, 04/27/23 21:12:00 EDT docusate (Colace) Start: 04/27/23 21:21:00 EDT, Dose = 100 mg, = 1 cap(s), Oral, BID, PRN, Constipation, 04/27/23 21:21:00 EDT glucagon (GlucaGen) Start: 04/27/23 21:21:00 EDT, Dose = 1 mg, = 1 mL, Intramuscular, AsDirected, PRN, Hypoglycemia, if unresponsive, NO IV ACCESS & blood glucose less than 70mg/dL. If still unresponsive after 2 minutes, REPEAT x1., 04/27/23 21:21:00 EDT glucose (Dextrose 50% IV Push) Start: 04/27/23 21:21:00 EDT, Dose = 12.5 gram(s), = 25 mL, IV Push,AsDirected, PRN, Hypoglycemia, if unresponsive WITH IV ACCESS & blood glucose less than 70mg/dL. If still unresponsive after 2 minutes, REPEAT x1., 04/27/23 21:21:00 EDT glucose Start: 04/27/23 21:21:00 EDT, Dose = 16 gram(s), = 4 tab(s), Chewed, AsDirected, PRN, Hypoglycemia, DIABETIC PATIENT if responsive & blood glucose less than 70mg/dL. If blood glucose less than 70mg/dL after 15 minutes, REPEAT x1., 0, 04/27/23 21:2... glycerin (glycerin adult rectal suppository) Start: 04/27/23 21:21:00 EDT, Dose = 1 supp, Supp, Rectal, Daily, PRN, Constipation, 04/27/23 21:21:00 EDT guaiFENesin (guaiFENesin 100 mg/5 mL oral liquid) Start: 04/27/23 21:13:00 EDT, Dose = 200 mg, = 10mL, Oral, q6h, PRN, Cough, 0, 04/27/23 21:13:00 EDT magnesium hydroxide (Milk of Magnesia) Start: 04/27/23 21:21:00 EDT, Dose = 30 mL, Susp-Oral, Oral,qHS, PRN, Constipation, 04/27/23 21:21:00 EDT ondansetron (Zofran) Start: 05/09/23 7:37:00 EDT, Dose = 4 mg, = 1 tab(s), Oral, q6hr, PRN, Nausea,05/09/23 7:37:00 EDT polyethylene glycol 3350 (Miralax Powder Packet) Start: 04/27/23 21:21:00 EDT, Dose = 17 gram(s), =15 mL, Oral, qDay, PRN, Constipation, 04/27/23 21:21:00 EDT temazepam (Restoril) Start: 05/07/23 1:31:00 EDT, Dose = 15 mg, = 2 cap(s), Oral, qHS, PRN, Sleep, 0, 05/05/23 7:21:00 EDT traMADol Start: 04/29/23 12:08:00 EDT, Dose = 50 mg, = 1 tab(s), Oral, q4h, PRN, Pain, scale 1-6, 04/29/23 12:08:00 EDT traMADol Start: 05/04/23 8:08:00 EDT, Dose = 100 mg, = 2 tab(s), Oral, q4hr, PRN, Pain, scale 7-10,0, 05/04/23 8:08:00 EDT One Time Meds: None Active IV Meds: None Problems (12) Acute ischemic left MCA stroke (9398501404) Aortic stenosis with bicuspid valve (231994002) Bipolar (481125805) Chronic back pain greater than three months duration ([id number]) COPD (chronic obstructive pulmonary disease) (04637273) Fall (8418524) Fever (3072841556) HLD (hyperlipidemia) (44377352) HTN (hypertension) ([id number]) Morbid obesity (838977450) Obesity ([id number]) Sleep apnea ([id number]) ASSESSMENT/PLAN: Severe aortic stenosis status post aortic valve replacement as well as repair of the ascending aorta with extensive complicated postoperative course. Follow-up with cardiology scheduled 05/25 Acute ischemic infarct involving the left MCA territory, risk factor modification diabetic and blood pressure control, aspirin plus statin. Follow-up with neurology 05/28 New onset atrial fibrillation, cleared for anticoagulation with Eliquis Hyperlipidemia on atorvastatin, tolerating without myalgias Hypertension amlodipine and metoprolol. Monitoring blood pressures closely Acute hypoxic respiratory failure oxygen in place, breathing comfortably on room air. Hyperkalemia during hospitalization, losartan was discontinued, monitoring lab work closely. Blood pressures stable COPD with mild exacerbation DuoNebs plus budesonide; continues to breathe comfortably on room air Type 2 diabetes on Lantus at supper, Humalog with meals, NPH and sliding scale. Blood sugars showing better control with decreasing Lantus. Acute on chronic low back pain, pain management notes reviewed patient will continue with the Lyrica. Tylenol and Tramadol 1 or 2 tabs PRN. Denies any uncontrolled pain today GI prophylaxis, Protonix Opioid induced constipation, continues with senna. As needed bowel regimen available. DVT prophylaxis continues Eliquis Dysarthria plus dysphagia, speech therapy, NG tube out. Diet upgraded to regular diet with thin liquids. Right upper extremity flaccid hemiparesis Right-sided weakness, working with PT and OT services EEG showing mild cortical dysfunction in the left hemisphere but no seizures Right upper extremity edema noted to have a superficial venous thrombosis treated supportively Morbid obesity Small bowel obstruction, currently resolved, reevaluating bowels close abdominal exam benign. Reports bowels are moving. Diverticulitis resolved, antibiotics complete Moderate pericardial effusion without tamponade noted on echo trending volume status Acute diastolic CHF with increased bilateral lower extremity edema. Most recent BNP improved at 442. We did discontinue Lasix and did initiate Bumex 2 mg twice daily. Continue with low-sodium diet and daily weights. Edema is showing improvement. Continue with close clinical monitoring, cardiology team consulted, note reviewed from 05/14. Appreciate input. Eliquis initiated for underlying A-fib, CT imaging the hospital showed subacute infarct of the posterior left frontal lobe without hemorrhage Low back pain, addition of tramadol 50 mg as well as 100 mg every 4 hours as needed for breakthrough pain, high utilization at the present time continue to monitor for any evidence of constipation especially given recent small bowel obstruction Insomnia, melatonin 5 at bedtime as well as increased dose of as needed Restoril. Medications effective Recurrent falls, fall precautions. working with PT and OT Nausea with abdominal pain and decreased p.o. intake. KUB was obtained 05/09 showing improved gas pattern. Abdominal exam benign at this time no further evidence of obstruction Dysphagia, continues to work with speech therapy, diet upgraded to regular diet with thin liquids. Tolerating. Responding well to the Bumex 2 mg twice daily Bowel regimen de-escalated to just the senna twice daily, scheduled MiraLAX and Colace discontinued., current abdominal exam benign symptoms showing improvement. Medications reviewed and up to date This document was transcribed using dictation software and may contain typographical errors. Jeannie Kirby RN, am scribing for , and in the presence of Dr. Miner. I, Dr. Miner, personally performed the services described in this documentation, as scribed by, Jeannie Martin RN in my presence and it is both accurate and complete. Digitally Signed by BENJAMIN MINER DO on 05/18/2023 09:11 AM [id number] Physical medicine and rehab Progress note Rehab Note Chief Complaint: Seeing this patient for reevaluation of therapy progress and generalized weakness,left MCA infarct, abdominal pain, nausea History of Present Illness: Seeing this patient for reevaluation of therapy progress and generalized weakness, left MCA infarct. Patient participates in acute inpatient rehabilitation with PT, OT andST services. 62-year-old male who was sent to the emergency department from [place] inpatient rehabilitation unit with abdominal pain, vomiting, fevers. CT of abdomen/pelvis showed mechanical SBO andpossible pneumatosis and moderate pericardial effusion. General surgery was consulted, NG tube was placed, then discontinued on 04/23. Echocardiogram showing moderate pericardial effusion, not felt tamponade physiology. CT of head showed subacute infarct posterior left frontal lobe, no hemorrhage. Past medical history includes morbid obesity, diabetes mellitus type 2, COPD, CAD, bipolar, hypertension, hyperlipidemia, obstructive sleep apnea, bicuspid aortic stenosis and diastolic heart failure. Today patient is sitting in chair eating breakfast while working with speech therapy, denies any coughing or choking episodes. Reports he is doing well and getting much stronger. Denies any uncontrolled pain or discomfort this a.m. Discussed with nursing. Medication reviewed. Goal is return home with spouse and home health care services. Tentative discharge date 05/20/2023. Medication List Active Medications Ordered acetaminophen: 650 mg, 2 tab(s), Oral, q4h, PRN: Muscle pain. albuterol: 2.5 mg, 3 mL, Inhalation, q4hRT, PRN: as needed for shortness of breath or wheezing. albuterol: 2.5 mg, 3 mL, Inhalation, QIDRT. Al hydroxide/Mg hydroxide/simethicone: 30 mL, Oral, q6h, PRN: Indigestion. amiodarone: 200 mg, 1 tab(s), Oral, qDay. amLODIPine: 5 mg, 1 tab(s), Oral, qDay. ammonium lactate topical: 1 application, Topical, AsDirected, PRN: Dry skin. apixaban: 5 mg, 1 tab(s), Oral, BID. atorvastatin: 10 mg, 1 tab(s), Oral, qHS. budesonide: 0.5 mg, 2 mL, Inhalation, BIDRT. bumetanide: 2 mg, 2 tab(s), Oral, BID. docusate: 100 mg, 1 cap(s), Oral, BID, PRN: Constipation. docusate: 100 mg, 1 cap(s), Oral, BID. glucagon: 1 mg, 1 mL, Intramuscular, AsDirected, PRN: Hypoglycemia. glucose: 12.5 gram(s), 25 mL, IV Push, AsDirected, PRN: Hypoglycemia. glucose: 16 gram(s), 4 tab(s), Chewed, AsDirected, PRN: Hypoglycemia. glycerin: 1 supp, Rectal, Daily, PRN: Constipation. guaiFENesin: 200 mg, 10 mL, Oral, q6h, PRN: Cough. insulin glargine: 12 unit(s), 0.12 mL, 0 mL/hr, Subcutaneous (INT), acSupper. insulin isophane (NPH): 38 unit(s), 0.38 mL, Subcutaneous, Daily. insulin lispro (HumaLOG): 0-10 unit(s), Subcutaneous, TIDM. magnesium hydroxide: 30 mL, Oral, qHS, PRN: Constipation. melatonin: 5 mg, 1 tab(s), Oral, qHS. metoprolol: 37.5 mg, 3 EA, Oral, BID. multivitamin with minerals: 1 tab(s), Oral, qDay. ondansetron: 4 mg, 1 tab(s), Oral, q6hr, PRN: Nausea. pantoprazole: 40 mg, 1 tab(s), Oral, qDay. polyethylene glycol 3350: 17 gram(s), 15 mL, Oral, qDay, PRN: Constipation. polyethylene glycol 3350: 17 gram(s), 15 mL, Oral, Daily. pregabalin: 100 mg, 2 cap(s), Oral, BID. pregabalin: 200 mg, 4 cap(s), Oral, qHS. senna: 8.6 mg, 1 tab(s), Oral, BID. temazepam: 15 mg, 2 cap(s), Oral, qHS, PRN: Sleep. traMADol: 50 mg, 1 tab(s), Oral, q4h, PRN: Pain, scale 1-6. traMADol: 100 mg, 2 tab(s), Oral, q4hr, PRN: Pain, scale 7-10. zinc oxide topical: 1 application, Topical, BID. Prescribed apixaban: 5 mg, 1 tab(s), Oral, BID, 60 tab(s), 2 Refill(s). Documented acetaminophen: 650 mg, 1 tab(s), Oral, BID, PRN: as needed for pain. albuterol: 2 puff(s), Inhalation, q4h, PRN: as needed for wheezing, 8.5 gram(s), 0 Refill(s). amiodarone: 200 mg, 1 tab(s), Oral, qDay, 30 tab(s), 0 Refill(s). amLODIPine: 5 mg, 1 tab(s), Nasogastric, qDay, 30 tab(s), 0 Refill(s). ammonium lactate topical: 1 application, Topical, PRN: as needed dry skin, 0 Refill(s). atorvastatin: 10 mg, 1 tab(s), Oral, qHS. budesonide-formoterol: 2 puff(s), Inhalation, BID, 0 Refill(s). docusate: 100 mg, 10 mL, Oral, BID. furosemide: 40 mg, 1 tab(s), Oral, BID, 0 Refill(s). guaiFENesin: 200 mg, 10 mL, Oral, q6h, PRN: as needed for cough. insulin glargine: 16 unit(s), Subcutaneous, acSupper, 0 Refill(s). insulin isophane (NPH): 38 unit(s), Subcutaneous, Daily, 0 Refill(s). insulin lispro (HumaLOG): Sliding Scale, Subcutaneous, TIDM, 10 mL, 0 Refill(s). metoprolol: 37.5 mg, 1 tab(s), Oral, BID, 180 tab(s), 0 Refill(s). multivitamin with minerals: 1 tab(s), Oral, qDay, 0 Refill(s). pantoprazole: 40 mg, Oral, qDay, 0 Refill(s). polyethylene glycol 3350: 17 gram(s), Oral, Daily, 0 Refill(s). pregabalin: 200 mg, 1 cap(s), Oral, qHS, 0 Refill(s). pregabalin: 100 mg, 1 cap(s), Oral, BID, 60 cap(s), 0 Refill(s). senna: 8.8 mg, 5 mL, Oral, BID, 0 Refill(s). zinc oxide topical: 1 application, Topical, BID, 0 Refill(s). Medications Inactivated in the Last 72 Hours albuterol: Miscellaneous, Once. pregabalin: Miscellaneous, Once. pregabalin: Miscellaneous, Once. Social history: Social support: Lives with spouse Home set-up: Single level home. First-floor bedroom, bathroom, laundry Barriers to discharge: Time since onset, safety awareness, past medical history Review of Systems: General: Appetite is good. Modified diet minced/moist with mildly thick liquids Respiratory: Denies shortness of breath, denies cough Cardiovascular: Denies chest pain, denies palpitations Gastrointestinal: Denies nausea, vomiting, diarrhea or constipation. Genitourinary: Denies suprapubic pain or tenderness, no dysuria Musculoskeletal: No uncontrolled pain. Psychiatric: No reported change in cognition Vitals Signs(Last 24 hrs)__Last Charted Minimum Maximum Temp36.4(MAY 15 01:30)36.4(MAY 15 01:30)36.6(MAY 14 16:25) Heart Rate75(MAY 14 16:42)74(MAY 14 09:19)75(MAY 14 16:42) CFF482(MAY 14:25)124(MAY 14:19)126(MAY 14 16:25) DBPL 52(MAY 14:25)L 52(MAY 14:25)60(MAY 14 09:19) Physical Exam: General: No acute distress. Appears comfortable sitting in chair working with speech therapy Respiratory: Lungs are clear to auscultation. Respirations nonlabored on RA. No conversational dyspnea, no cough, no congestion Cardiovascular: Regular rate and rhythm. No bradycardia. No tachycardia. No murmur Gastrointestinal: Abdomen is soft nontender nondistended. Bowel sounds normal x4. Arterial: 2/4 distal pulses bilateral lower extremities Edema: 1/4 edema bilateral lower extremities. No calf tenderness. Musculoskeletal: Mild polyarthritis Spinal Curvatures: Slight increased thoracic kyphosis. No spinal or paraspinal tenderness Weight bearing status/transfers/ADLs: Weightbearing as tolerated. Ambulated 50 feet with gait belt and bariatric walker. Touch assist for sit to stand. Touch assist for chair to bed transfer. Touch assist walk 10 feet. Touch assist walk 50 feet to turn. Maximal assist for lower body dressing. Moderate assist for sit to stand. Modified independence with 80% accuracy for oral agility. Modified independence with 80% accuracy for motor exercises. Modified independence with 80% accuracy is for speech intelligibility at conversational level Skin: Dry. Thin. Healing unstageable pressure ulcer to coccyx improving Neurological: Cranial nerves intact Normal sensation distally Dysarthric speech 4+/5 left upper extremity strength 2 -/5 right upper extremity strength with increased tone 5/5 left lower extremity strength 4 -/5 right lower extremity strength Decreased right hand grasp Normal left hand grasp Decreased shoulder range of motion bilaterally right worse than left 2/4 left upper and lower extremity reflexes 3/4 right upper and lower extremity reflexes Psychiatric: A&O. Pleasant and cooperative. Flat affect. Assessment: Left MCA stroke with dense right hemiparesis. Status post small bowel obstruction. Status post AVR ascending repair. Plan: Acute rehabilitation of physical occupational and speech therapy services. Gait mobility ADLsand self-care. NDT. Neurology and cardiology follow-up. Wound care for coccygeal ulceration. Pressure relief with sinus side-lying. Zinc oxide application. Reinforced no concentrated sweet diet encourage slow weight loss. Plan Home with son and home care services May 19 Risks/benefits of meds, treatments considered. Therapy notes reviewed. Discussed with staff. PMH/SH reviewed and unchanged Note: This dictation was created with assistance of voice recognition software. Phonic and/or minorgrammatical errors may exist. Medications reviewed and are up to date IWilder LPN, am scribing for, and in the presence of Dr. Jone AGUILERA. I, Dr. Jone AGUILERA , personally performed the services described in this documentation, as described by Wilder Whitmore LPN in my presence and it is both accurate and complete. Digitally Signed by MALIA BECERRIL DO on 05/16/2023 01:11 PM Leland [id number] Note Subjective Patient reports doing well this morning, states that his breathing is okay, denies shortness of breath. Denies any cough or congestion. States that he is urinating well. Denies any burning, urgency, or frequency but denies retention. States that his appetite is good. Denies any further issues with constipation, states he had a bowel movement yesterday as well as to the day before. States that he is keeping a close eye on this. Denies any abdominal pain. Denies pain with palpation to the abdomen. States therapy is going well. States that he is tolerating advanced diet, denies any choking episodes. Denies dizziness or lightheadedness Objective General: Alert, oriented NAD. Appears comfortable sitting in chair and working with speech therapy,no signs of acute pain. Calm and interactive. Pleasant and talkative. Good eye contact HEENT: No nasal drainage, EOMI, MMM Respiratory: LCTA nonlabored on room air; no cough/conversational dyspnea Cardiovascular: HRR; no tachycardia; no heart murmur Edema/Varicosities of Extremities: No edema bilateral thighs, 2+ edema bilateral calves, 3+ edema bilateral ankles improved Gastrointestinal: Abdomen soft, nondistended, nontender with bowel sounds present x 4 Genitourinary: No CVA tenderness, no suprapubic tenderness, no bladder distention Skin: Sternal incision healing well, no signs or symptoms of infection. Neurological: Dysarthria, right upper extremity weakness VITALS HfjcoqLfhnHUTxspfJIQzG4ORN2NrasFt(kg) 05/15 01:3036.4--699527--26/19752.0 05/14 16:42----75------/04229.6 05/14 16:2536.6--316264QP32/45453.0 05/14 10:10--------94RA 05/14 09:1936.2--051516MK 24 Hr Tmax: 36.6 at 05/14 16:25 36 Hr Tmax: 36.6 at 05/14 16:25 Vital Signs are the last 5 in the past 48 hours. Weights display the last 5 within 7 days. Initial Wt: 04/27 119.4 kg 263 lb Current Wt: 05/14 118.2 kg 260 lb LABS 05/14 06:36 WBC: 10.9 H Hgb: 13.6 Hct: 40.7 Platelet: 222 Neutrophil %: 70.3 Glucose Level: 121 H Sodium Level: 143 Potassium Level: 4.3 BUN: 21.0 Creatinine Lvl (s): 1.08 Medications Active Inpt Meds: albuterol (albuterol 2.5 mg/3 mL (0.083%) inhalation solution) Start: 04/27/23 21:45:00 EDT, Dose =2.5 mg, = 3 mL, Inhalation, QIDRT, 0, 04/27/23 21:12:00 EDT amLODIPine Start: 05/03/23 9:00:00 EDT, Dose = 5 mg, = 1 tab(s), Oral, qDay, 1st dose location: [place] [id number], 05/02/23 10:39:00 EDT amiodarone Start: 04/27/23 21:12:00 EDT, Dose = 200 mg, = 1 tab(s), Oral, qDay, 04/27/23 21:12:00 EDT apixaban Start: 04/27/23 21:12:00 EDT, Dose = 5 mg, = 1 tab(s), Oral, BID, Indication for Use Atrial fibrillation, 04/27/23 21:12:00 EDT atorvastatin Start: 04/27/23 21:12:00 EDT, Dose = 10 mg, = 1 tab(s), Oral, qHS, 04/27/23 21:12:00 EDT budesonide (budesonide 0.5 mg/2 mL inhalation suspension) Start: 04/27/23 21:48:00 EDT, Dose = 0.5 mg, = 2 mL, Inhalation, BIDRT, 0, 04/27/23 21:12:00 EDT bumetanide (Bumex) Start: 05/11/23 9:00:00 EDT, Dose = 2 mg, = 2 tab(s), Oral, BID, 05/11/23 8:18:00 EDT docusate Start: 04/29/23 20:00:00 EDT, Dose = 100 mg, = 1 cap(s), Oral, BID, 04/29/23 16:45:00 EDT insulin glargine (Lantus) Start: 05/10/23 16:00:00 EDT, Dose = 12 unit(s), = 0.12 mL, Subcutaneous (INT), acSupper, Rate: 0 mL/hr, Infuse over: 0 minute(s), 05/10/23 9:48:00 EDT insulin isophane (NPH) Start: 05/11/23 7:30:00 EDT, Dose = 38 unit(s), = 0.38 mL, Subcutaneous, Daily, 05/11/23 7:30:00 EDT insulin lispro (HumaLOG) (HumaLOG 100 units/mL injectable solution VIAL) Start: 04/28/23 9:48:00 EDT, 0-10 unit(s), Subcutaneous, TIDM, 0, 04/28/23 9:48:00 EDT melatonin Start: 05/02/23 21:00:00 EDT, Dose = 5 mg, = 1 tab(s), Oral, qHS, 05/02/23 7:18:00 EDT metoprolol (metoprolol tartrate 25 mg oral tablet) Start: 04/27/23 21:13:00 EDT, Dose = 37.5 mg, = 3 EA, Oral, BID, 0, 04/27/23 21:13:00 EDT multivitamin with minerals (Centrum) Start: 04/27/23 21:13:00 EDT, Dose = 1 tab(s), Tab, Oral, qDay, 04/27/23 21:13:00 EDT pantoprazole Start: 04/27/23 21:13:00 EDT, Dose = 40 mg, = 1 tab(s), Oral, qDay, 0, 04/27/23 21:13:00 EDT polyethylene glycol 3350 (polyethylene glycol 3350 powder packet) Start: 04/27/23 21:13:00 EDT, Dose = 17 gram(s), = 15 mL, Oral, Daily, 0, 04/27/23 21:13:00 EDT pregabalin (pregabalin 100 mg oral capsule) Start: 04/27/23 21:13:00 EDT, Dose = 100 mg, = 2 cap(s), Oral, BID, 0, 04/27/23 21:13:00 EDT pregabalin (pregabalin 200 mg oral capsule) Start: 04/27/23 21:13:00 EDT, Dose = 200 mg, = 4 cap(s), Oral, qHS, 0, 04/27/23 21:13:00 EDT senna Start: 04/28/23 9:00:00 EDT, Dose = 8.6 mg, = 1 tab(s), Oral, BID, 0, 04/28/23 8:34:00 EDT zinc oxide topical (zinc oxide 20% topical ointment) Start: 04/28/23 6:00:00 EDT, 1 application, Topical, BID, Apply to: buttocks., Ointment, 04/27/23 21:14:00 EDT Active PRN Meds: Al hydroxide/Mg hydroxide/simethicone (Maalox) Start: 04/27/23 21:21:00 EDT, Dose = 30 mL, Susp, Oral, q6h, PRN, Indigestion, 04/27/23 21:21:00 EDT acetaminophen (Tylenol) Start: 04/27/23:21:00 EDT, Dose = 650 mg, = 2 tab(s), Oral, q4h, PRN, Muscle pain, 04/27/23:21:00 EDT albuterol Start: 04/27/23 21:12:00 EDT, Dose = 2.5 mg, = 3 mL, Inhalation, q4hRT, PRN, as needed for shortness of breath or wheezing, 0, 04/27/23 21:12:00 EDT ammonium lactate topical (ammonium lactate 12% topical cream) Start: 04/27/23 21:46:00 EDT, 1 application, Topical, AsDirected, PRN, Dry skin, Apply to: B legs, Cream, 04/27/23 21:12:00 EDT docusate (Colace) Start: 04/27/23:21:00 EDT, Dose = 100 mg, = 1 cap(s), Oral, BID, PRN, Constipation, 04/27/23:21:00 EDT glucagon (GlucaGen) Start: 04/27/23:21:00 EDT, Dose = 1 mg, = 1 mL, Intramuscular, AsDirected, PRN, Hypoglycemia, if unresponsive, NO IV ACCESS & blood glucose less than 70mg/dL. If still unresponsive after 2 minutes, REPEAT x1., 04/27/23:21:00 EDT glucose (Dextrose 50% IV Push) Start: 04/27/23:21:00 EDT, Dose = 12.5 gram(s), = 25 mL, IV Push,AsDirected, PRN, Hypoglycemia, if unresponsive WITH IV ACCESS & blood glucose less than 70mg/dL. If still unresponsive after 2 minutes, REPEAT x1., 04/27/23 21:21:00 EDT glucose Start: 04/27/23:21:00 EDT, Dose = 16 gram(s), = 4 tab(s), Chewed, AsDirected, PRN, Hypoglycemia, DIABETIC PATIENT if responsive & blood glucose less than 70mg/dL. If blood glucose less than 70mg/dL after 15 minutes, REPEAT x1., 0, 04/27/23 21:2... glycerin (glycerin adult rectal suppository) Start: 04/27/23 21:21:00 EDT, Dose = 1 supp, Supp, Rectal, Daily, PRN, Constipation, 04/27/23 21:21:00 EDT guaiFENesin (guaiFENesin 100 mg/5 mL oral liquid) Start: 04/27/23 21:13:00 EDT, Dose = 200 mg, = 10mL, Oral, q6h, PRN, Cough, 0, 04/27/23 21:13:00 EDT magnesium hydroxide (Milk of Magnesia) Start: 04/27/23 21:21:00 EDT, Dose = 30 mL, Susp-Oral, Oral,qHS, PRN, Constipation, 04/27/23 21:21:00 EDT ondansetron (Zofran) Start: 05/09/23 7:37:00 EDT, Dose = 4 mg, = 1 tab(s), Oral, q6hr, PRN, Nausea,05/09/23 7:37:00 EDT polyethylene glycol 3350 (Miralax Powder Packet) Start: 04/27/23 21:21:00 EDT, Dose = 17 gram(s), =15 mL, Oral, qDay, PRN, Constipation, 04/27/23 21:21:00 EDT temazepam (Restoril) Start: 05/07/23 1:31:00 EDT, Dose = 15 mg, = 2 cap(s), Oral, qHS, PRN, Sleep, 0, 05/05/23 7:21:00 EDT traMADol Start: 04/29/23 12:08:00 EDT, Dose = 50 mg, = 1 tab(s), Oral, q4h, PRN, Pain, scale 1-6, 04/29/23 12:08:00 EDT traMADol Start: 05/04/23 8:08:00 EDT, Dose = 100 mg, = 2 tab(s), Oral, q4hr, PRN, Pain, scale 7-10,0, 05/04/23 8:08:00 EDT One Time Meds: None Active IV Meds: None Problems (12) Acute ischemic left MCA stroke ([id number]) Aortic stenosis with bicuspid valve (214831577) Bipolar (988828275) Chronic back pain greater than three months duration (8507780106) COPD (chronic obstructive pulmonary disease) (92011634) Fall (7148530) Fever (8772253948) HLD (hyperlipidemia) (14258487) HTN (hypertension) ([id number]) Morbid obesity (686244017) Obesity ([id number]) Sleep apnea ([id number]) ASSESSMENT/PLAN: Severe aortic stenosis status post aortic valve replacement as well as repair of the ascending aorta with extensive complicated postoperative course. Follow-up with cardiology scheduled 05/25 Acute ischemic infarct involving the left MCA territory, risk factor modification diabetic and blood pressure control, aspirin plus statin. Follow-up with neurology 05/28 New onset atrial fibrillation, cleared for anticoagulation with Eliquis Hyperlipidemia on atorvastatin, tolerating without myalgias Hypertension amlodipine and metoprolol. Monitoring blood pressures closely Acute hypoxic respiratory failure oxygen in place, breathing comfortably on room air. Hyperkalemia during hospitalization, losartan was discontinued, monitoring lab work closely. Blood pressures remain stable COPD with mild exacerbation DuoNebs plus budesonide; continues to breathe comfortably on room air Type 2 diabetes on Lantus at supper, Humalog with meals, NPH and sliding scale. Blood sugars showing better control with decreasing Lantus. Acute on chronic low back pain, pain management notes reviewed patient will continue with the Lyrica. Tylenol and Tramadol 1 or 2 tabs PRN. Denies any uncontrolled pain GI prophylaxis, Protonix Opioid induced constipation, MiraLAX, Colace, and senna. As needed bowel regimen available. DVT prophylaxis continues Eliquis Dysarthria plus dysphagia, speech therapy, NG tube out. Diet upgraded to soft and bite-size diet with thin liquids. Right upper extremity flaccid hemiparesis Right-sided weakness, working with PT and OT services EEG showing mild cortical dysfunction in the left hemisphere but no seizures Right upper extremity edema noted to have a superficial venous thrombosis treated supportively Morbid obesity Small bowel obstruction, currently resolved, reevaluating bowels close abdominal exam benign. Reports bowels are moving. Diverticulitis resolved, antibiotics complete Moderate pericardial effusion without tamponade noted on echo trending volume status Acute diastolic CHF with increased bilateral lower extremity edema. Most recent BNP improved at 442. We did discontinue Lasix and did initiate Bumex 2 mg twice daily. Continue with low-sodium diet and daily weights. Edema is showing improvement. Continue with close clinical monitoring, cardiology team consulted, note reviewed from 05/14. Appreciate input. Eliquis initiated for underlying A-fib, CT imaging the hospital showed subacute infarct of the posterior left frontal lobe without hemorrhage Low back pain, addition of tramadol 50 mg as well as 100 mg every 4 hours as needed for breakthrough pain, high utilization at the present time continue to monitor for any evidence of constipation especially given recent small bowel obstruction Insomnia, melatonin 5 at bedtime as well as increased dose of as needed Restoril. Medications effective Recurrent falls, fall precautions. PT/OT Nausea with abdominal pain and decreased p.o. intake. KUB was obtained 05/09 showing improved gas pattern. Abdominal exam benign at this time no further evidence of obstruction Dysphagia, continues to work with speech therapy, diet upgraded to soft and bite-size diet with thin liquids. Tolerating. Responding well to the Bumex 2 mg twice daily De-escalate current bowel regimen to just the senna twice daily change MiraLAX as needed discontinue docusate Medications reviewed and up to date This document was transcribed using dictation software and may contain typographical errors. Renae Kirby RN, am scribing for , and in the presence of Dr. Miner. IDr. Miner, personally performed the services described in this documentation, as scribed byRenae RN in my presence and it is both accurate and complete. Digitally Signed by BENJAMIN MINER DO on 05/18/2023 09:21 AM Leland [id number] Cardiology Consult note Date of Service 05/14 Reason for Consultation AVR Referring Physician [facility] History of Present Illness This is a 62-year-old male with history of aortic stenosis and ascending aortic aneurysm status post AVR and root replacement. This was on [facility]. Postop was complicated by a stroke. He was also found to be in A-fib. He also had subsequent admission at [facility] for small bowel obstruction. He had an echo that showed moderate pericardial fusion, he was diuresed with diuretics. He was also started on Eliquis new medication. Cardiology was not involved in the case. He is undergoing therapy program for his stroke. Patient denies any chest pain or pressure. Review of Systems All other ROS was negative unless mentioned in HPI Physical Exam Vitals and Measurements T: 36.2 C (Temporal Artery) TMIN: 36.0 C (Temporal Artery) TMAX: 36.5 C (Temporal Artery) HR: 74(Apical) RR: 16 BP: 124/60 SpO2: 94% WT: 118.2 kg Weight Current Weight Dosing Weight: 119 kg (05/13/23) Current Weight: 118.2 kg (05/15/23) Dosing Weight: 119.6 kg (05/10/23) Current Weight: 118 kg (05/14/23) Gen: Appears comfortable, not in distress. CVS: Regular rate, 3/6 systolic murmur. RESP: CTAB NEuro: Right arm is flaccid. Lab Results 05/14 06:36 WBC: 10.9 H Hgb: 13.6 Hct: 40.7 Platelet: 222 Neutrophil %: 70.3 Glucose Level: 121 H Sodium Level: 143 Potassium Level: 4.3 BUN: 21.0 Creatinine Lvl (s): 1.08 Assessment/Plan Acute ischemic left MCA stroke Aortic stenosis with bicuspid valve HLD (hyperlipidemia) HTN (hypertension) Morbid obesity Sleep apnea 1) Aortic stenosis with aortopathy ([facility]) -Status post aortic valve replacement and aortic root. I do not have these records, done in [facility] in March 2023. 2) atrial fibrillation -Completed amiodarone. Continue Eliquis and metoprolol. Rate controlled. Appears to be in sinus. 3) Pericardial effusion -Moderate. Likely postop changes. Will need a repeat echo, has an appointment with us in a few weeks. Though I'm unsure which cardiology group he's following, he was seeing [facility] prior to all this. Patient' was not certain, he wasn't aware of his appt with Dr. Barcenas. 4) diastolic chf -on Bumex BID, 2mg. 5) MCA -in acute rehab currently, MCA stroke, right side is essentially flaccid. Problem List/Past Medical History Ongoing Bipolar Chronic back pain greater than three months duration HTN (hypertension) Obesity Sleep apnea Historical No qualifying data Procedure/Surgical History AVR - Aortic valve replacement Surgery Elbow Carpal tunnel release Medications Inpatient albuterol, 2.5 mg= 3 mL, Inhalation, q4hRT, PRN albuterol 2.5 mg/3 mL (0.083%) inhalation solution, 2.5 mg= 3 mL, Inhalation, QIDRT amiodarone, 200 mg= 1 tab(s), Oral, qDay amLODIPine, 5 mg= 1 tab(s), Oral, qDay ammonium lactate 12% topical cream, 1 application, Topical, AsDirected, PRN apixaban, 5 mg= 1 tab(s), Oral, BID atorvastatin, 10 mg= 1 tab(s), Oral, qHS budesonide 0.5 mg/2 mL inhalation suspension, 0.5 mg= 2 mL, Inhalation, BIDRT Bumex, 2 mg= 2 tab(s), Oral, BID Centrum, 1 tab(s), Oral, qDay Colace, 100 mg= 1 cap(s), Oral, BID, PRN Dextrose 50% IV Push, 12.5 gram(s)= 25 mL, IV Push, AsDirected, PRN docusate, 100 mg= 1 cap(s), Oral, BID GlucaGen, 1 mg= 1 mL, Intramuscular, AsDirected, PRN glucose, 16 gram(s)= 4 tab(s), Chewed, AsDirected, PRN glycerin adult rectal suppository, 1 supp, Rectal, Daily, PRN guaiFENesin 100 mg/5 mL oral liquid, 200 mg= 10 mL, Oral, q6h, PRN HumaLOG 100 units/mL injectable solution VIAL, 0-10 unit(s), Subcutaneous, TIDM insulin isophane (NPH), 38 unit(s)= 0.38 mL, Subcutaneous, Daily Lantus, 12 unit(s)= 0.12 mL, Subcutaneous (INT), acSupper Maalox, 30 mL, Oral, q6h, PRN melatonin, 5 mg= 1 tab(s), Oral, qHS metoprolol tartrate 25 mg oral tablet, 37.5 mg= 3 EA, Oral, BID Milk of Magnesia, 30 mL, Oral, qHS, PRN Miralax Powder Packet, 17 gram(s)= 15 mL, Oral, qDay, PRN pantoprazole, 40 mg= 1 tab(s), Oral, qDay polyethylene glycol 3350 powder packet, 17 gram(s)= 15 mL, Oral, Daily pregabalin 100 mg oral capsule, 100 mg= 2 cap(s), Oral, BID pregabalin 200 mg oral capsule, 200 mg= 4 cap(s), Oral, qHS Restoril, 15 mg= 2 cap(s), Oral, qHS, PRN senna, 8.6 mg= 1 tab(s), Oral, BID traMADol, 50 mg= 1 tab(s), Oral, q4h, PRN traMADol, 100 mg= 2 tab(s), Oral, q4hr, PRN Tylenol, 650 mg= 2 tab(s), Oral, q4h, PRN zinc oxide 20% topical ointment, 1 application, Topical, BID Zofran, 4 mg= 1 tab(s), Oral, q6hr, PRN Home acetaminophen 650 mg oral tablet, extended release, 650 mg= 1 tab(s), Oral, BID, PRN albuterol MDI (90 mcg/inh) CFC free inhalation aerosol, 2 puff(s), Inhalation, q4h, PRN amiodarone 200 mg oral tablet, 200 mg= 1 tab(s), Oral, qDay amLODIPine 5 mg oral tablet, 5 mg= 1 tab(s), Nasogastric, qDay ammonium lactate 12% topical cream, 1 application, Topical, PRN apixaban 5 mg oral tablet, 5 mg= 1 tab(s), Oral, BID, 2 refills atorvastatin 10 mg oral tablet, 10 mg= 1 tab(s), Oral, qHS Centrum, 1 tab(s), Oral, qDay docusate sodium 10 mg/mL oral liquid, 100 mg= 10 mL, Oral, BID furosemide 40 mg oral tablet, 40 mg= 1 tab(s), Oral, BID guaiFENesin 100 mg/5 mL oral liquid, 200 mg= 10 mL, Oral, q6h, PRN insulin glargine, 16 unit(s), Subcutaneous, acSupper insulin isophane (NPH), 38 unit(s), Subcutaneous, Daily insulin lispro (Humalog) 100 units/mL injectable solution, Sliding Scale, Subcutaneous, TIDM metoprolol tartrate 37.5 mg oral tablet, 37.5 mg= 1 tab(s), Oral, BID pantoprazole, 40 mg, Oral, qDay polyethylene glycol 3350 oral powder for reconstitution, 17 gram(s), Oral, Daily pregabalin 100 mg oral capsule, 100 mg= 1 cap(s), Oral, BID pregabalin 200 mg oral capsule, 200 mg= 1 cap(s), Oral, qHS senna (sennosides) 8.8 mg/5 mL oral syrup, 8.8 mg= 5 mL, Oral, BID Symbicort 80 mcg-4.5 mcg/inh Inhaler, 2 puff(s), Inhalation, BID zinc oxide 13% topical cream, 1 application, Topical, BID Allergies Flonase (Nosebleed) penicillin (Rash) Social History Smoking Status - 05/07/2013 Current every day smoker Tobacco Nicotine Use: Never (less than 100 in lifetime)., 04/06/2023 Immunizations SARS-CoV-2 mRNA (tozinameran) vaccine: 0.3 unknown unit (10/22/20) SARS-CoV-2 mRNA (tozinameran) vaccine: 0.3 unknown unit (09/17/20) Digitally Signed by KATERINA SALDANA MD on 05/15/2023 04:22 PM [id number] Note ORIGINAL EXAMINATION: ONE SUPINE XRAY VIEW(S) OF THE ABDOMEN 05/11/2023 9:21 am COMPARISON: 05/09/2023 x-ray and CT abdomen pelvis HISTORY: ORDERING SYSTEM PROVIDED HISTORY: Reason for Exam: constipation FINDINGS: Examination is compromised by patient body habitus and portable technique. Nonobstructive bowel gas pattern with only mild stool burden. Degenerative changes in the osseous structures. Partial visualization of sternal hardware. Prior lumbar spine surgery. IMPRESSION: Improved gas pattern since the prior. Interpreted by: Marycruz Rodriguez MD Preliminary Report By: Marycruz Rodriguez MD Electronically signed By Marycruz Rodriguez MD Dictated Date: 05/11/2023 9:29:27 AM Prelim Date: 05/11/2023 9:31:37 AM Sign Date: 05/11/2023 9:31:37 AM Ordering Provider: ALLISON Mckoy03-26-2024 Note ORIGINAL EXAMINATION: CT OF THE ABDOMEN AND PELVIS WITHOUT CONTRAST 05/09/2023 12:59 pm TECHNIQUE: CT of the abdomen and pelvis was performed without the administration of intravenous contrast. Multiplanar reformatted images are provided for review. Automated exposure control, iterative reconstruction, and/or weight based adjustment of the mA/kV was utilized to reduce the radiation dose to as low as reasonably achievable. COMPARISON: April 23, 2023 HISTORY: ORDERING SYSTEM PROVIDED HISTORY: Reason for Exam: f/u from [facility] re: SBO FINDINGS: Degenerative and postoperative changes are noted in the spine. There is metallic artifact from spinal fixation hardware. Trace left pleural fluid is evident with minimal adjacent atelectasis. A small amount of pericardial fluid is also evident. Liver, spleen, adrenal glands and pancreas are unremarkable. A left renal cyst is present. Punctate 2 mm stone suspected left lower pole kidney. No adenopathy, free air or free fluid seen. The urinary bladder is grossly normal. No colonic or appendiceal abnormality seen. The distal ileum is normal in caliber. There is however mild proximal ileal and jejunal dilatation, improved since the previous CT scan. No pneumatosis or free air is visible. No evidence for abscess. No additional contributory finding. IMPRESSION: Improvement of small bowel distension since the previous CT scan. This may represent resolving or low-grade mechanical obstruction. No new/acute finding identified. Suspect punctate nonobstructive left lower pole nephrolithiasis. Interpreted by: Kiel Zaragoza MD Preliminary Report By: Kiel Zaragoza MD Electronically signed By Kiel Zaragoza MD Dictated Date: 05/09/2023 1:07:41 PM Prelim Date: 05/09/2023 1:10:22 PM Sign Date: 05/09/2023 1:10:22 PM Ordering Provider: MALIA Mckoy03-26-2024 Note ORIGINAL EXAMINATION: X-ray abdomen. TECHNIQUE: KUB, one view COMPARISON: Kv 04/24/2023, CT abdomen pelvis 04/23/2023 HISTORY: ORDERING SYSTEM PROVIDED HISTORY: Reason for Exam: pain FINDINGS: Examination is limited by body habitus. Gaseous distension of proximal small bowel loops measuring up to 5 cm in transverse dimension noted. Air is present within the descending colon rectum. The flank regions are obscured by bowel gas. No acute osseous pathology. Widespread spondylotic changes throughout the thoracic and lumbar spine. Posterior instrumentation at L5-S1 with bilateral transpedicular screws and vertical stabilization rods. IMPRESSION: Gaseous distension of proximal small bowel loops measuring up to 5 cm favored to reflect a small bowel obstruction. Further evaluation with CT abdomen pelvis is advised. Interpreted by: Saturnino Chawla MD Preliminary Report By: Saturnino Chawla MD Electronically signed By Saturnino Chawla MD Dictated Date: 05/09/2023 9:49:33 AM Prelim Date: 05/09/2023 9:53:10 AM Sign Date: 05/09/2023 9:53:10 AM Ordering Provider: MALIA Mckoy03-19-2024 Miscellaneous Notes * Telephone Encounter - Ned Burgess LPN - 05/02/2023 1:45 PM EDT Called and spoke to Shweta patient , patient is still in rehab. Updated and will make a follow up appointment after patient is discharged. voiced understanding. Ned Burgess LPN May 02, 2023 1:47 PM * Telephone Encounter - Alyson Arthur MD - 05/02/2023 12:18 PM EDT If he is still in hospital/rehab. All of this needs to be addressed by the providers caring for himthere. They usually handle that * Telephone Encounter - July Perez LPN - 04/26/2023 3:53 PM EDT called back and the hospital bed will be coming from DME: [place] PH: [phone] FAX: [phone] Per they need rx and face sheet only. No OV notes needed. July Perez LPN * Telephone Encounter - July Perez LPN - 04/26/2023 3:42 PM EDT reported there is 3 medications insurance will no longer pay for and different medication is needed. 1)Diclofenac potassium 25 mg 2)Budesonide/formogerol 80/4.5 mg 3)pen needles 31 g 8 mm July Perez LPN * Telephone Encounter - July Perez LPN - 04/26/2023 3:11 PM EDT calling in to request a hospital bed for pt. Pt is still an inpt at [facility]. not sure when he will released home. Pt will go back the rehabilitation for a little while per . She is trying to get everything ready for when he comes home. The bed needs to raise up and down, soft because of his bad back. Pt will need to call with [employer]. July Perez LPN [facility] + Plan note Extracted from: Title:Clinical Document Author:MALIA BECERRIL Date:04/28/23 Acute Inpatient Rehab Histor y and Physical Date of Service: 04/28/2023 Date of Admission: 04/27/2023 Attending Physician: Dr. Becerril [employer] [facility] 1.2 right body involved CVA, left brain Etiologic Diagnosis Left MCA infarct in posterior left frontal lobe Small bowel structure History of Present Illness 62-year-old male noted to [facility] inpatient rehab from [facility] stay 04/22 - 04/26 with a past medical history of hyperlipidemia, chronic kidney disease stage III with baseline creatinine 0.9 1.0, diastolic congestive heart failure, arthritis, diabetes mellitus type 2, obesity, cardiomyopathy, tobacco use, BPH, skin cancer, hypertension, chronic low back pain, obstructive sleep apnea, and bipolar who presented to the emergency room on 04/22 with complaints of nausea, vomiting, abdominal pain, and fevers. CT of the abdomen and pelvis show mechanical small bowel obstruction and possible pneumatosis and moderate pericardial effusion. Patient was initiated on Cipro and Flagyl for fevers. There is a concern for fluid overload with proBNP elevated at 16 and 70, prior BNP at 621. Patient was diuresed with IV Lasix. General surgery team was consulted and NG tube was placed however then discontinued on 04/23 with improvement in bowel status. Diet was upgraded. Echocardiogram performed showing moderate pericardial effusion however not felt to be tamponade physiology. CT of the head obtained showing subacute infarct the posterior left frontal lobe, no hemorrhage present. Eliquis was initiated on 5 mg twice daily. Patient did have a prior rehab stay here on 04/07 - 04/22 after aortic valve replacement repair of a standing order with acute ischemic infarct of the left MCA territory. He also had new onset of atrial fibrillation and was off anticoagulation due to petechial hemorrhage. During the hospital stay he also had acute hypoxic respiratory failure due to an acute diastolic congestive heart failure exacerbation as well as COPD exacerbation. Patient deemed medically stable transferred to [facility] inpatient rehab unit for physical and occupational therapy as well as medical supervision. Due to the fact that he had impairments of gait mobility ADLs and self-care and medical complexity, decision was made to admit her to the acute physical rehabilitation unit. Today, patient is sitting up in wheelchair does have some ongoing right facial weakness and dysarthria. He denies any pain today on examination, does have at the Tylenol place for breakthrough pain and states been effective. He has no edema to the bilateral extremities. Lungs are clear to auscultation, SpO2 currently ranging 96-97% on 2 L oxygen per nasal cannula. Denies any cough or congestion states breathing is comfortable. Denies any lightness, dizziness, or headache. Denies any chest pain or chest pressure. Recent lab work with creatinine 0.70, BUN 18, calcium 8.2, sodium 141 potassium 3.7. He does have a follow-up BMP and CBC pending results today. He denies any glycemic reactions and wear monitoring blood sugars 3 times daily. Baseline functional status is independent. Admit functional status is currently modified to maximum assist. Medications (32) Active Scheduled: (21) acetaminophen 325 mg Tablet 325 mg 1 tab(s), Oral, q6h albuterol 0.083% Soln UD (2.5mg/3 mL) 2.5 mg 3 mL, Inhalation, q4hRT albuterol 0.083% Soln UD (2.5mg/3 mL) 2.5 mg 3 mL, Inhalation, QIDRT amiodarone 200 mg tablet 200 mg 1 tab(s), Oral, qDay amLODIPine 5 mg tablet 5 mg 1 tab(s), Nasogastric, qDay apixaban 5 mg tablet 5 mg 1 tab(s), Oral, BID atorvastatin 10 mg tablet 10 mg 1 tab(s), Oral, qHS budesonide 0.5 mg/2 mL Susp UD 0.5 mg 2 mL, Inhalation, BIDRT docusate 10 mg/mL Liq 10mL UD 100 mg 10 mL, Oral, BID furosemide 40 mg tablet 40 mg 1 tab(s), Oral, BID insulin glargine 16 unit(s) 0.16 mL, Subcutaneous (INT), acSupper insulin isophane human recombinant 100 units/ml (10 mL) Inj 38 unit(s) 0.38 mL, Subcutaneous, Daily insulin lispro CONCENTRATED 200 units/mL 3 mL Syringe Sliding Scale, Subcutaneous, TIDM metoprolol tartrate 12.5 mg ( HALF-TAB ) 37.5 mg 3 EA, Oral, BID multivitamin (Myadec) with minerals Therapeutic Multiple Vitamins with Minerals Tablet 1 tab(s), Oral, qDay pantoprazole 40 mg EC tablet 40 mg 1 tab(s), Oral, qDay polyethylene glycol 3350 - UD packet 17 gram(s) 15 mL, Oral, Daily pregabalin 50 mg capsule 100 mg 2 cap(s), Oral, BID pregabalin 50 mg capsule 200 mg 4 cap(s), Oral, qHS senna 8.6 mg Tablet 8.8 mg 1.02 tab(s), Oral, BID zinc oxide topical 20% Ointment 1 application, Topical, BID Continuous: (0) PRN: (11) acetaminophen 325 mg Tablet 650 mg 2 tab(s), Oral, q4h Al hydrox/Mg hydrox/simethicone 200-200-20 mg/5 mL Susp UD 30 mL, Oral, q6h ammonium lactate Cream 12% 1 application, Topical, AsDirected dextrose 50% Solution Disp syringe 50 mL 12.5 gram(s) 25 mL, IV Push, AsDirected docusate sodium 100 mg Capsule 100 mg 1 cap(s), Oral, BID glucagon recombinant 1 mg 1 mg 1 mL, Intramuscular, AsDirected glucose 4 gm Chewable 16 gram(s) 4 tab(s), Chewed, AsDirected glycerin adult Suppository 1 supp, Rectal, Daily guaifenesin 100 mg/5 mL Liquid SUGAR-FREE 120 mL 200 mg 10 mL, Oral, q6h magnesium hydroxide 8% Suspension 30 mL UD 30 mL, Oral, qHS polyethylene glycol 3350 - UD packet 17 gram(s) 15 mL, Oral, qDay Review of Systems Constitutional: Denies weight changes fever or chills. Denies headache HEENT: Denies nystagmus and dizziness. Respiratory: Denies cough or congestion Cardiovascular: Denies chest pain, palpitations, uncontrolled blood pressure Gastrointestinal: Denies nausea with emesis. Genitourinary: Denies dysuria or urinary retention Neurological: Denies any cognitive deficits Musculoskeletal: Denies any joint or musculoskeletal pain Skin: Pressure to coccyx, dressing in place. Endocrine: Denies hot or cold intolerance. No hypoglycemia. Psychiatric: Denies changes in mental status. Allergic/immunologic: Denies environmental allergies or immune dysfunction Past Medical History: Morbid obesity Diabetes mellitus type 2 COPD Coronary artery disease Bipolar Hypertension Hyperlipidemia Obstructive sleep apnea with CPAP Bicuspid aortic stenosis Diastolic congestive heart failure Procedure/Surgical History: Lumbar fusion Bilateral carpal tunnel release Left shoulder surgery Nasal passage clearing for sleep apnea Open reduction internal fixation of right ankle Left ulnar nerve decompression Social History: Alcohol Details: Frequency: Denies Home/Environment Details: Domestic Concerns: None. Living situation: Lives at home with family, first-floor set up. 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 Safe place to go: Yes. Lives In: Single level home, 1st floor bedroom, 1st floor bathroom, laundry in basement. Current Home Treatments None. Professional Skilled Services or Special Community Resources None. Financial concerns: No. Spouse Name: None marital Status: Not Nutrition/Health Details: Appetite Good. Sexual Details: Sexually active: Denies Substance Abuse Details: Type: Denies any substance abuse Tobacco Details: Nicotine Use: Denies any tobacco abuse Family History: Denies any significant past family medical history Allergies: Flonase Penicillin Code Status: Full code Physical Exam General appearance: Alert orient x4. No acute distress. Sitting up in chair, appears comfortable, and does not appear in acute pain. Pleasant and cooperative. Good eye contact with flat affect. Head: Normocephalic no evidence of trauma HEENT: Pupils equal and reactive to light and accommodation, no erythema. Ears with no external lesions or discharge. Nose clear, nares patent, no discharge. Throat normal healthy definition, no redness or erythema. Neck: Trachea midline. No lymphatic adenopathy Cardiac: Regular rate and rhythm, no rubs or murmurs Lungs: Clear to auscultation. Respirations unlabored on 2 L of oxygen per nasal cannula. Abdomen: Soft, nontender, no organomegaly or rebound tenderness. Positive bowel sounds Musculoskeletal: Intact range of motion, no erythema, no polyarthric changes. Increase thoracic kyphosis Extremities: No edema or calf tenderness Neurological: Cranial nerves intact. No nystagmus. 4+/5 strength to the left upper extremity. 0/5 strength to the right upper extremity. 4+/5 strength to the left lower extremity. 4 -/5 strength to the right lower extremity. 1/4 reflexes to the left upper and lower extremity. 2/4 reflexes to the right lower and upper extremities. Right facial weakness, dysarthria Skin: Pressure ulcer to coccyx, dressing in place. Dressing is dry, clean, and intact. Psychiatric: Mood good. No anxiety or depression Vitals Signs(Last 24 hrs)__Last Charted Minimum Maximum Temp36.8(APR 26 19:55)36.8(APR 26 19:55)36.8(APR 26 19:55) Heart Rate82(APR 26 19:55)82(APR 26 19:55)82(APR 26 19:55) [id number](APR 26 19:55)140(APR 26 19:55)140(APR 26 19:55) DBP64(APR 26 19:55)64(APR 26 19:55)64(APR 26 19:55) No 36hr Lab Data Assessment/Plan Left MCA stroke with dense right hemiparesis. Medical committees of readmission for small bowel obstruction with pericardial effusion, recent aortic valve replacement and repair Ascending aorta. Obesity, pericardial effusion, chronic kidney disease stage III, diastolic congestive heart failure hyperlipidemia osteoarthritis diabetes type 2 with diabetic polyneuropathy cardiomyopathy tobacco abuse BPH hypertension chronic low back pain sleep apnea and bipolar disorder. Plan: Acute rehabilitation physical occupational and speech therapy services. Scheduled bowel routine. Strict blood pressure control. Humalog insulin diabetic diet. Encourage slow weight loss. CBC and BMP today. Team staffing Monday regarding further goals plan of care and length of stay. O2 per nasal cannula and CPAP at night. Condition complex, medically stable Post Admission Physician Evaluation Medical reconciliation performed. Old chart reviewed. Patient status on admission to rehab is medically stable but medically complex. Appropriate for admission to inpatient rehab facility due to need for 24-hour nursing and medical management in a hospital-based setting. Comparison with information on preadmission screening findings information to be consistent. Diagnoses to be monitored and treated include: CVA, small bowel obstruction, AVR ascending repair, acute postop respiratory failure, diastolic congestive heart failure, COPD, nausea, vomiting, pain, hyperlipidemia, type is mellitus type II, chronic kidney stage III, hypertension Rehabilitation physician to direct team staffing. See daily on rehabilitation rounds. Plan is for acute rehab with PT OT and speech-language therapy rehab nursing social work and nutrition for an acute interdisciplinary team rehab approach. Will work on gait training, ADLs, self-care, and strengthening, bowel and bladder program. DVT prophylaxis and medical management of comorbidities Medical Comorbidities at the Time of Admission CVA Small bowel obstruction AVR ascending repair Nausea Vomiting Acute/chronic hypoxic respiratory failure Diastolic congestive heart. COPD Hyperlipidemia Chronic kidney stage III Diastolic congestive heart failure Arthritis Diabetes mellitus type 2 Obesity Cardiomyopathy BPH Hypertension Chronic low back pain Obstructive sleep apnea Bipolar Barriers to Discharge Functional medical impairments Consulting Physician Dr. Miner Estimated Length of Stay 2-3 weeks All medications reviewed and up to date Noni Kirby RN, am scribing for, and in the presence of Dr. Jone Koehler D.O., D.O. , personally performed the services described in this documentation, as described by Noni Martin RN in my presence and it is both accurate and complete accurate and complete. Future Appointments Appointment Date:05/26/2023 01:30:00 PM Scheduled Provider: Location:[facility] Appointment Type:[facility] [employer] Leland Mckoy 03-15-2024 Physical medicine and rehab History and physical note Acute Inpatient Rehab History and Physical Date of Service: 04/28/2023 Date of Admission: 04/27/2023 Attending Physician: Dr. [facility] [employer] 1.2 right body involved CVA, left brain Etiologic Diagnosis Left MCA infarct in posterior left frontal lobe Small bowel structure History of Present Illness 62-year-old male noted to [facility] inpatient rehab from [facility] stay 04/22 - 04/26 with a past medical history of hyperlipidemia, chronic kidney disease stage III with baseline creatinine 0.9 1.0, diastolic congestive heart failure, arthritis, diabetes mellitus type 2, obesity, cardiomyopathy, tobacco use, BPH, skin cancer, hypertension, chronic low back pain, obstructive sleep apnea, and bipolar who presented to the emergency room on 04/22 with complaints of nausea, vomiting, abdominal pain, and fevers. CT of the abdomen and pelvis show mechanical small bowel obstruction and possible pneumatosis and moderate pericardial effusion. Patient was initiated on Cipro and Flagyl for fevers. Th ere is a concern for fluid overload with proBNP elevated at 16 and 70, prior BNP at 621. Patient was diuresed with IV Lasix. General surgery team was consulted and NG tube was placed however then discontinued on 04/23 with improvement in bowel status. Diet was upgraded. Echocardiogram performed showing moderate pericardial effusion however not felt to be tamponade physiology. CT of the head obtained showing subacute infarct the posterior left frontal lobe, no hemorrhage present. Eliquis was initiated on 5 mg twice daily. Patient did have a prior rehab stay here on 04/07 - 04/22 after aortic valve replacement repair of a standing order with acute ischemic infarct of the left MCA territory. He also had new onset of atrial fibrillation and was off anticoagulation due to petechial hemorrhage. During the hospital stay he also had acute hypoxic respiratory failure due to an acute diastolic congestive heart failure exacerbation as well as COPD exacerbation. Patient deemed medically stable transferred to [facility] inpatient rehab unit for physical and occupational therapy as well as medical supervision. Due to the fact that he had impairments of gait mobility ADLs and self-care and medical complexity, decision was made to admit her to the acute physical rehabilitation unit. Today, patient issitting up in wheelchair does have some ongoing right facial weakness and dysarthria. He denies anypain today on examination, does have at the Tylenol place for breakthrough pain and states been effective. He has no edema to the bilateral extremities. Lungs are clear to auscultation, SpO2 currently ranging 96-97% on 2 L oxygen per nasal cannula. Denies any cough or congestion states breathing is comfortable. Denies any lightness, dizziness, or headache. Denies any chest pain or chest pressure.Recent lab work with creatinine 0.70, BUN 18, calcium 8.2, sodium 141 potassium 3.7. He does have afollow-up BMP and CBC pending results today. He denies any glycemic reactions and wear monitoring blood sugars 3 times daily. Baseline functional status is independent. Admit functional status is currently modified to maximum assist. Medications (32) Active Scheduled: (21) acetaminophen 325 mg Tablet 325 mg 1 tab(s), Oral, q6h albuterol 0.083% Soln UD (2.5mg/3 mL) 2.5 mg 3 mL, Inhalation, q4hRT albuterol 0.083% Soln UD (2.5mg/3 mL) 2.5 mg 3 mL, Inhalation, QIDRT amiodarone 200 mg tablet 200 mg 1 tab(s), Oral, qDay amLODIPine 5 mg tablet 5 mg 1 tab(s), Nasogastric, qDay apixaban 5 mg tablet 5 mg 1 tab(s), Oral, BID atorvastatin 10 mg tablet 10 mg 1 tab(s), Oral, qHS budesonide 0.5 mg/2 mL Susp UD 0.5 mg 2 mL, Inhalation, BIDRT docusate 10 mg/mL Liq 10mL UD 100 mg 10 mL, Oral, BID furosemide 40 mg tablet 40 mg 1 tab(s), Oral, BID insulin glargine 16 unit(s) 0.16 mL, Subcutaneous (INT), acSupper insulin isophane human recombinant 100 units/ml (10 mL) Inj 38 unit(s) 0.38 mL, Subcutaneous, Daily insulin lispro CONCENTRATED 200 units/mL 3 mL Syringe Sliding Scale, Subcutaneous, TIDM metoprolol tartrate 12.5 mg ( HALF-TAB ) 37.5 mg 3 EA, Oral, BID multivitamin (Myadec) with minerals Therapeutic Multiple Vitamins with Minerals Tablet 1 tab(s), Oral, qDay pantoprazole 40 mg EC tablet 40 mg 1 tab(s), Oral, qDay polyethylene glycol 3350 - UD packet 17 gram(s) 15 mL, Oral, Daily pregabalin 50 mg capsule 100 mg 2 cap(s), Oral, BID pregabalin 50 mg capsule 200 mg 4 cap(s), Oral, qHS senna 8.6 mg Tablet 8.8 mg 1.02 tab(s), Oral, BID zinc oxide topical 20% Ointment 1 application, Topical, BID Continuous: (0) PRN: (11) acetaminophen 325 mg Tablet 650 mg 2 tab(s), Oral, q4h Al hydrox/Mg hydrox/simethicone 200-200-20 mg/5 mL Susp UD 30 mL, Oral, q6h ammonium lactate Cream 12% 1 application, Topical, AsDirected dextrose 50% Solution Disp syringe 50 mL 12.5 gram(s) 25 mL, IV Push, AsDirected docusate sodium 100 mg Capsule 100 mg 1 cap(s), Oral, BID glucagon recombinant 1 mg 1 mg 1 mL, Intramuscular, AsDirected glucose 4 gm Chewable 16 gram(s) 4 tab(s), Chewed, AsDirected glycerin adult Suppository 1 supp, Rectal, Daily guaifenesin 100 mg/5 mL Liquid SUGAR-FREE 120 mL 200 mg 10 mL, Oral, q6h magnesium hydroxide 8% Suspension 30 mL UD 30 mL, Oral, qHS polyethylene glycol 3350 - UD packet 17 gram(s) 15 mL, Oral, qDay Review of Systems Constitutional: Denies weight changes fever or chills. Denies headache HEENT: Denies nystagmus and dizziness. Respiratory: Denies cough or congestion Cardiovascular: Denies chest pain, palpitations, uncontrolled blood pressure Gastrointestinal: Denies nausea with emesis. Genitourinary: Denies dysuria or urinary retention Neurological: Denies any cognitive deficits Musculoskeletal: Denies any joint or musculoskeletal pain Skin: Pressure to coccyx, dressing in place. Endocrine: Denies hot or cold intolerance. No hypoglycemia. Psychiatric: Denies changes in mental status. Allergic/immunologic: Denies environmental allergies or immune dysfunction Past Medical History: Morbid obesity Diabetes mellitus type 2 COPD Coronary artery disease Bipolar Hypertension Hyperlipidemia Obstructive sleep apnea with CPAP Bicuspid aortic stenosis Diastolic congestive heart failure Procedure/Surgical History: Lumbar fusion Bilateral carpal tunnel release Left shoulder surgery Nasal passage clearing for sleep apnea Open reduction internal fixation of right ankle Left ulnar nerve decompression Social History: Alcohol Details: Frequency: Denies Home/Environment Details: Domestic Concerns: None. Living situation: Lives at home with family, first-floor set up. 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 Safe place to go: Yes. Lives In: Single level home, 1st floor bedroom, 1stfloor bathroom, laundry in basement. Current Home Treatments None. Professional Skilled Services orSpecial Community Resources None. Financial concerns: No. Spouse Name: None marital Status: Not Nutrition/Health Details: Appetite Good. Sexual Details: Sexually active: Denies Substance Abuse Details: Type: Denies any substance abuse Tobacco Details: Nicotine Use: Denies any tobacco abuse Family History: Denies any significant past family medical history Allergies: Flonase Penicillin Code Status: Full code Physical Exam General appearance: Alert orient x4. No acute distress. Sitting up in chair, appears comfortable, and does not appear in acute pain. Pleasant and cooperative. Good eye contact with flat affect. Head: Normocephalic no evidence of trauma HEENT: Pupils equal and reactive to light and accommodation, no erythema. Ears with no external lesions or discharge. Nose clear, nares patent, no discharge. Throat normal healthy definition, no redness or erythema. Neck: Trachea midline. No lymphatic adenopathy Cardiac: Regular rate and rhythm, no rubs or murmurs Lungs: Clear to auscultation. Respirations unlabored on 2 L of oxygen per nasal cannula. Abdomen: Soft, nontender, no organomegaly or rebound tenderness. Positive bowel sounds Musculoskeletal: Intact range of motion, no erythema, no polyarthric changes. Increase thoracic kyphosis Extremities: No edema or calf tenderness Neurological: Cranial nerves intact. No nystagmus. 4+/5 strength to the left upper extremity. 0/5 strength to the right upper extremity. 4+/5 strength to the left lower extremity. 4 -/5 strength to the right lower extremity. 1/4 reflexes to the left upper and lower extremity. 2/4 reflexes to the right lower and upper extremities. Right facial weakness, dysarthria Skin: Pressure ulcer to coccyx, dressing in place. Dressing is dry, clean, and intact. Psychiatric: Mood good. No anxiety or depression Vitals Signs(Last 24 hrs)__Last Charted Minimum Maximum Temp36.8(APR 26 19:55)36.8(APR 26 19:55)36.8(APR 26:55) Heart Rate82(APR 26:55)82(APR 26 19:55)82(APR 26:55) [id number](APR 26:55)140(APR 26 19:55)140(APR 26:55) DBP64(APR 26:55)64(APR 26:55)64(APR 26:55) No 36hr Lab Data Assessment/Plan Left MCA stroke with dense right hemiparesis. Medical committees of readmission for small bowel obstruction with pericardial effusion, recent aortic valve replacement and repair Ascending aorta. Obesity, pericardial effusion, chronic kidney disease stage III, diastolic congestive heart failure hyperlipidemia osteoarthritis diabetes type 2 with diabetic polyneuropathy cardiomyopathy tobacco abuse BPH hypertension chronic low back pain sleep apnea and bipolar disorder. Plan: Acute rehabilitation physical occupational and speech therapy services. Scheduled bowel routine. Strict blood pressure control. Humalog insulin diabetic diet. Encourage slow weight loss. CBC and BMP today. Team staffing Monday regarding further goals plan of care and length of stay. O2 per nasal cannula and CPAP at night. Condition complex, medically stable Post Admission Physician Evaluation Medical reconciliation performed. Old chart reviewed. Patient status on admission to rehab is medically stable but medically complex. Appropriate for admission to inpatient rehab facility due to need for 24-hour nursing and medical management in a hospital-based setting. Comparison with information on preadmission screening findings information to be consistent. Diagnoses to be monitored and treated include: CVA, small bowel obstruction, AVR ascending repair, acute postop respiratory failure, diastolic congestive heart failure, COPD, nausea, vomiting, pain, hyperlipidemia, type is mellitus type II, chronic kidney stage III, hypertension Rehabilitation physician to direct team staffing. See daily on rehabilitation rounds. Plan is for acute rehab with PT OT and speech-language therapy rehab nursing social work and nutrition for an acute interdisciplinary team rehab approach. Will work on gait training, ADLs, self-care,and strengthening, bowel and bladder program. DVT prophylaxis and medical management of comorbidities Medical Comorbidities at the Time of Admission CVA Small bowel obstruction AVR ascending repair Nausea Vomiting Acute/chronic hypoxic respiratory failure Diastolic congestive heart. COPD Hyperlipidemia Chronic kidney stage III Diastolic congestive heart failure Arthritis Diabetes mellitus type 2 Obesity Cardiomyopathy BPH Hypertension Chronic low back pain Obstructive sleep apnea Bipolar Barriers to Discharge Functional medical impairments Consulting Physician Dr. Miner Estimated Length of Stay 2-3 weeks All medications reviewed and up to date Noni Kirby RN, am scribing for, and in the presence of Dr. Jone Geronimo I, Dr. Jone Geronimo , personally performed the services described in this documentation, as described by Noni Martin RN in my presence and it is both accurate and complete accurate and complete. Digitally Signed by MALIA BECERRIL DO on 04/28/2023 12:22 PM [id number] Physical medicine and rehab Consult note INPATIENT REHAB MEDICAL CONSULT DATE OF ADMISSION: 04/27/2023 CC: SBO, AVR ascending repair, L MCA infarct HISTORY OF PRESENT ILLNESS: This is a 62-year-old male admitted to [facility] rehab unit for [facility] stay 04/22 - 04/26 has history of CKD 3, diastolic CHF, diabetes mellitus type 2, obesity, BPH, skin cancer and hypertension with a prior inpatient rehab stay from 04/07 - 04/22 after aortic valve replacement and repair of ascending aorta with acute ischemic infarct at that left MCA territory. Onset atrial fibrillation recently diagnosed, is off anticoagulation secondary to Petechial hemorrhage. Found with acute hypoxic respiratory failure thought secondary to acute diastolic CHF/COPD exacerbation. Complained of nausea and vomiting, abdominal pain and fevers, requested transfer to ER. CT ABD/pelvis showed mechan ical SBO and possible pneumatosis and moderate pericardial effusion. Cipro/Flagyl added for fevers.Concern for fluid overload, BNP 1670, prior 621. IV Lasix was administered. General surgery was consulted, NG tube was placed, later discontinued on 04/23. Echocardiogram showing moderate pericardial e ffusion, not felt tamponade physiology. CT head showed subacute infarct posterior left frontal lobe, no hemorrhage. Eliquis was initiated. Patient deemed medically stable transferred to [facility] inpatient rehab unit for physical and occupational therapy as well as medical supervision. Today, patientreports he is having normal bowel movements, states that they are solid. Denies abdominal pain or nausea/vomiting. Does state appetite good and eating well. States staying well-hydrated. States that he does not like the texture of the diet of mechanical soft and nectar thick but he does state he istolerating. States breathing is comfortable. Denies shortness of breath or cough/congestion. SpO2 96%; denies fever or chills. Blood sugar 209 2 96. Denies any hypoglycemic reaction. Recent lab with WBC 7, hemoglobin 11.6, platelet 189, sodium 141, potassium 3.7, BUN 19, creatinine 0.7, calcium 8.2. CBC/BMP pending. Patient denies chest pain, shortness of breath, nausea, vomiting or constipation,or diarrhea. Hospital medications, labs, and diagnostics were reviewed and reconciled. PAST MEDICAL HISTORY: Morbid obesity Diabetes mellitus type 2 COPD Coronary artery disease Bipolar Hypertension Hyperlipidemia Obstructive sleep apnea with CPAP Bicuspid aortic stenosis Diastolic congestive heart failure PAST SURGICAL HISTORY: Lumbar fusion Bilateral carpal tunnel release Left shoulder surgery Nasal passage clearing for sleep apnea Open reduction internal fixation of right ankle Left ulnar nerve decompression SOCIAL HISTORY: Lives at home with his family. Denies any alcohol use, tobacco use, or substance abuse FAMILY HISTORY: Denies any significant past family medical history CODE STATUS: Full code ALLERGIES: Flonase Penicillin PCP: Dr. Adin Arthur Vitals Signs(Last 24 hrs)__Last Charted Minimum Maximum Temp36.8(APR 26 19:55)36.8(APR 26 19:55)36.8(APR 26 19:55) Heart Rate82(APR 26 19:55)82(APR 26 19:55)82(APR 26 19:55) HZT588(APR 26 19:55)140(APR 26 19:55)140(APR 26 19:55) DBP64(APR 26 19:55)64(APR 26 19:55)64(APR 26 19:55) REVIEW OF SYSTEMS: General: The patient appears frail and debilitated requiring assistance with activities of daily living including mobility. Constitutional: Appetite is good. Sleeping well at night. Denies pain. No fever. No chills. HEENT: Eyes: No blurring, discharge, or pain. ENT: No congestion, discharge or epistaxis. Respiratory: No cough, no dyspnea. No hemoptysis. Cardiovascular: No chest pain. No claudication. No paroxysmal nocturnal dyspnea. Gastrointestinal: No constipation, diarrhea, nausea, vomiting or abdominal pain. No dysphagia. Genitourinary: No dysuria, frequency or urgency. Neurological: No new focal weakness. No seizure or tremor. Musculoskeletal: No contractures or altered range of motion. Endocrine: No hot or cold intolerance. No hypoglycemia. Mental Status: No changes in mental status. PHYSICAL EXAMINATION: HEENT: Eyes: Extraocular motions are intact. No nystagmus. ENT: No exudate on tongue or pharynx. Norhinorrhea. Neck: Neck is symmetric without mass, tenderness or rigidity. Trachea is midline. Pulmonary: Breath sounds are diminished at the bases, faint crackles. Chest is symmetric with normal expansion. Respirations are nonlabored. Cardiovascular: HRRR, no MRG, no JVD Peripheral Vascular: No calf pain or tenderness. No cyanosis or clubbing of digits. 2+ edema BLE Gastrointestinal: Abdomen soft without masses, distention or tenderness. Bowel sounds are positive x4. Genitourinary: No suprapubic tenderness. No bladder distention. Musculoskeletal: Exam shows no misalignment, tenderness or effusion. Motor strength and tone are symmetric. Lymph: No enlargement or tenderness in neck or groin. Skin: No rash, tears or wounds. Neurologic: Cranial nerves II through XII are grossly intact. No new focal deficits. Balance and coordination are being evaluated by pt/ot Medications (32) Active Scheduled: (21) acetaminophen 325 mg Tablet 325 mg 1 tab(s), Oral, q6h albuterol 0.083% Soln UD (2.5mg/3 mL) 2.5 mg 3 mL, Inhalation, q4hRT albuterol 0.083% Soln UD (2.5mg/3 mL) 2.5 mg 3 mL, Inhalation, QIDRT amiodarone 200 mg tablet 200 mg 1 tab(s), Oral, qDay amLODIPine 5 mg tablet 5 mg 1 tab(s), Nasogastric, qDay apixaban 5 mg tablet 5 mg 1 tab(s), Oral, BID atorvastatin 10 mg tablet 10 mg 1 tab(s), Oral, qHS budesonide 0.5 mg/2 mL Susp UD 0.5 mg 2 mL, Inhalation, BIDRT docusate 10 mg/mL Liq 10mL UD 100 mg 10 mL, Oral, BID furosemide 40 mg tablet 40 mg 1 tab(s), Oral, BID insulin glargine 16 unit(s) 0.16 mL, Subcutaneous (INT), acSupper insulin isophane human recombinant 100 units/ml (10 mL) Inj 38 unit(s) 0.38 mL, Subcutaneous, Daily insulin lispro CONCENTRATED 200 units/mL 3 mL Syringe Sliding Scale, Subcutaneous, TIDM metoprolol tartrate 12.5 mg ( HALF-TAB ) 37.5 mg 3 EA, Oral, BID multivitamin (Myadec) with minerals Therapeutic Multiple Vitamins with Minerals Tablet 1 tab(s), Oral, qDay pantoprazole 40 mg EC tablet 40 mg 1 tab(s), Oral, qDay polyethylene glycol 3350 - UD packet 17 gram(s) 15 mL, Oral, Daily pregabalin 50 mg capsule 100 mg 2 cap(s), Oral, BID pregabalin 50 mg capsule 200 mg 4 cap(s), Oral, qHS senna 8.6 mg Tablet 8.8 mg 1.02 tab(s), Oral, BID zinc oxide topical 20% Ointment 1 application, Topical, BID Continuous: (0) PRN: (11) acetaminophen 325 mg Tablet 650 mg 2 tab(s), Oral, q4h Al hydrox/Mg hydrox/simethicone 200-200-20 mg/5 mL Susp UD 30 mL, Oral, q6h ammonium lactate Cream 12% 1 application, Topical, AsDirected dextrose 50% Solution Disp syringe 50 mL 12.5 gram(s) 25 mL, IV Push, AsDirected docusate sodium 100 mg Capsule 100 mg 1 cap(s), Oral, BID glucagon recombinant 1 mg 1 mg 1 mL, Intramuscular, AsDirected glucose 4 gm Chewable 16 gram(s) 4 tab(s), Chewed, AsDirected glycerin adult Suppository 1 supp, Rectal, Daily guaifenesin 100 mg/5 mL Liquid SUGAR-FREE 120 mL 200 mg 10 mL, Oral, q6h magnesium hydroxide 8% Suspension 30 mL UD 30 mL, Oral, qHS polyethylene glycol 3350 - UD packet 17 gram(s) 15 mL, Oral, qDay REVIEW OF LABS, DIAGNOSTICS Hospital labs and diagnostics reviewed. No 36hr Lab Data ASSESSMENT AND PLAN: actively managed medical problems include Severe aortic stenosis status post aortic valve replacement as well as repair of the ascending aorta with extensive complicated postoperative course. Follow-up with cardiology scheduled 4/22 Acute ischemic infarct involving the left MCA territory, risk factor modification diabetic and blood pressure control, aspirin plus statin. Follow-up with neurology as scheduled 04/30 New onset atrial fibrillation, cleared for anticoagulation with Eliquis Hyperlipidemia on atorvastatin, tolerating without myalgias Hypertension amlodipine. Monitoring blood pressures closely Acute hypoxic respiratory failure oxygen in place Hyperkalemia during hospitalization, losartan was discontinued, monitoring lab work closely. COPD with mild exacerbation DuoNebs plus budesonide; breathing comfortably on room air Type 2 diabetes on Lantus 16 at supper, Humalog with meals, NPH and sliding scale Acute on chronic low back pain, pain management notes reviewed patient will continue with the Lyrica. Tylenol q6 hours and PRN. GI prophylaxis, Protonix Opioid induced constipation, Miralax/Colace/Senna. As needed bowel regimen available DVT prophylaxis continues Eliquis Dysarthria plus dysphagia, speech therapy, NG tube discontinued Right upper extremity flaccid hemiparesis Right-sided weakness, working with PT and OT EEG showing mild cortical dysfunction in the left hemisphere but no seizures Right upper extremity edema noted to have a superficial venous thrombosis treated supportively Morbid obesity Rehospitalized for acute nausea vomiting abdominal pain secondary to small bowel obstruction, as well as some concerns for diverticulitis, patient treated with Cipro and Flagyl n.p.o. NG tube placement. NG tube has been removed, bowel movements currently regular and formed. High risk for recurrent SBO close follow-up on abdominal exam maintain laxative regimen, discontinue Colace continue with the senna and MiraLAX Moderate pericardial effusion without tamponade noted on echo trending volume status Acute diastolic CHF currently on Lasix 40 BID, close follow-up on volume status, daily weights, low-sodium diet Eliquis initiated for underlying A-fib, CT imaging the hospital showed subacute infarct of the posterior left frontal lobe without hemorrhage Change Tylenol to as needed ORDERS- PT/OT Change Tylenol PRN D/C colace Discussion and summaries: Reviewed with nursing staff. Our group will follow during acute rehabilitation stay at [facility] with the goal of returning to a more independentliving status at the conclusion of the stay. Medications reviewed and up to date This document was transcribed using dictation software and may contain typographical errors. Renae Kirby RN, am scribing for , and in the presence of Dr. Miner. I, Dr. Miner, personally performed the services described in this documentation, as scribed byRenae RN in my presence and it is both accurate and complete. Digitally Signed by BENJAMIN MINER DO on 05/04/2023 09:22 AM Leland [id number] Hospital Discharge instructions Patient Education 04/27/2023 18:39:47 Bowel Obstruction, [id number] Bowel Obstruction A bowel obstruction means that something is blocking the small or large bowel. The bowel is also called the intestine. It is the long tube that connects the stomach to the opening of the butt (anus).When something blocks the bowel, food and fluids cannot pass through like normal. This condition needs to be treated. Treatment depends on the cause of the problem and how bad the problem is. What are the causes? Common causes of this condition include: Scar tissue (adhesions) from past surgery or from high-energy X-rays (radiation). Recent surgery in the belly. This affects how food moves in the bowel. Some diseases, such as: ?Irritation of the lining of the digestive tract (Crohn's disease). ?Irritation of small pouches in the bowel (diverticulitis). Growths or tumors. A bulging organ (hernia). Twisting of the bowel (volvulus). A foreign body. Slipping of a part of the bowel into another part (intussusception). What are the signs or symptoms? Symptoms of this condition include: Pain in the belly. Feeling sick to your stomach (nauseous). Throwing up (vomiting). Bloating in the belly. Being unable to pass gas. Trouble pooping (constipation). Watery poop (diarrhea). A lot of belching. How is this diagnosed? This condition may be diagnosed based on: A physical exam. Medical history. Imaging tests, such as X-ray or CT scan. Blood tests. Urine tests. How is this treated? Treatment for this condition may include: Fluids and pain medicines that are given through an IV tube. Your doctor may tell you not to eat ordrink if you feel sick to your stomach and are throwing up. Eating a clear liquid diet for a few days. Putting a small tube (nasogastric tube) into the stomach. This will help with pain, discomfort, andnausea by removing blocked air and fluids from the stomach. Surgery. This may be needed if other treatments do not work. Follow these instructions at home: Medicines Take qcla-thx-basuxbd and prescription medicines only as told by your doctor. If you were prescribed an antibiotic medicine, take it as told by your doctor. Do not stop taking the antibiotic even if you start to feel better. General instructions Follow your diet as told by your doctor. You may need to: ?Only drink clear liquids until you start to get better. ?Avoid solid foods. Return to your normal activities as told by your doctor. Ask your doctor what activities are safe for you. Do not sit for a long time without moving. Get up to take short walks every 1 2 hours. This is important. Ask for help if you feel weak or unsteady. Keep all follow-up visits as told by your doctor. This is important. How is this prevented? After having a bowel obstruction, you may be more likely to have another. You can do some things tostop it from happening again. If you have a long-term (chronic) disease, contact your doctor if you see changes or problems. Take steps to prevent or treat trouble pooping. Your doctor may ask that you: ?Drink enough fluid to keep your pee (urine) pale yellow. ?Take odys-aen-xxwasgs or prescription medicines. ?Eat foods that are high in fiber. These include beans, whole grains, and fresh fruits and vegetables. ?Limit foods that are high in fat and sugar. These include fried or sweet foods. Stay active. Ask your doctor which exercises are safe for you. Avoid stress. Eat three small meals and three small snacks each day. Work with a food expert (dietitian) to make a meal plan that works for you. Do not use any products that contain nicotine or tobacco, such as cigarettes and e-cigarettes. If you need help quitting, ask your doctor. Contact a doctor if: You have a fever. You have chills. Get help right away if: You have pain or cramps that get worse. You throw up blood. You are sick to your stomach. You cannot stop throwing up. You cannot drink fluids. You feel mixed up (confused). You feel very thirsty (dehydrated). Your belly gets more bloated. You feel weak or you pass out (faint). Summary A bowel obstruction means that something is blocking the small or large bowel. Treatment may include IV fluids and pain medicine. You may also have a clear liquid diet, a small tube in your stomach, or surgery. Drink clear liquids and avoid solid foods until you get better. This information is not intended to replace advice given to you by your health care provider. Make sure you discuss any questions you have with your health care provider. Document Released: 03/09/2005 Document Revised: 06/13/2018 Document Reviewed: 06/13/2018 Jenn Rykert Patient Education 2020 [employer] Follow Up Care 04/23/2023 05:16:22 With:Dorothy Mckoy [facility], Address:Unknown When:1-2 days With:ALYSON ARTHUR Address: [facility] [address] [place] [phone] Business (1) When:1-2 days [facility] 03-14-2024 Note Discharge Instructions Thank you for allowing [facility] to assist you with your healthcare needs. The following is importantdischarge information regarding your hospital visit. Your Care Team ALYSON ARTHUR MD Your Diagnosis Abdominal pain Bowel obstruction Fever Fever What to do next Instructions From Your Doctor You are treated for bowel obstruction in hospital, prior to being discharged from hospital which improved prior to being discharged from hospital We did a repeat CT head in the hospital and it shows that your stroke is stable, therefore we started you on anticoagulation to prevent further strokes from atrial fibrillation Continue taking all your usual medications Follow Up Appointments Follow Up with Dorothy Mckoy, When Within 1-2 days Follow Up with ALYSON ARTHUR When Within 1-2 days Where: [facility] [address] [place] [address]- [phone] Business (1) The Following Activity and Diet Have Been Ordered for You Discharge Activity - Ordered -- As instructed by therapy, 04/27/23 15:05:00 EDT Transfer of Care Activity - Ordered -- Activity As Tolerated, 04/27/23 15:06:00 EDT Discharge Diet - Ordered -- 04/27/23 15:05:00 EDT Transfer of Care Diet - Ordered -- 04/27/23 15:06:00 EDT The Following Equipment Has Been Ordered for You No qualifying data available. The Following Treatments Have Been Ordered for You Discharge Labs No qualifying data available. Discharge Radiology No qualifying data available. Other Therapies Transfer of Care OT - Ordered -- Reason for therapy: weakness, 04/27/23 17:20:00 EDT Transfer of Care PT - Ordered -- Reason for therapy: weakness, 04/27/23 17:20:00 EDT Post Acute Orders Transfer of Care Admission Level of Care - Ordered -- Level of Care Acute Rehab, 04/27/23 15:09:35 EDT Transfer of Care Code Status - Ordered -- Full Code, Constant Order Transfer of Care Communication Order - Ordered -- Expect less than 30 day stay., 04/27/23 15:09:35 EDT Transfer of Care Orders Electronically Signed By - Ordered -- 04/27/23 15:06:00 EDT, URMILA GARCÍA MD Transfer of Care Prognosis - Ordered -- Fair, Patient Aware: Yes Transfer of Care Rehab Potential - Ordered -- Rehab potential fair, 04/27/23 15:06:40 EDT Someone Will Contact You Regarding These Home Health Referrals No home referrals have been ordered for you. No one will call you. Allergies Flonase (Nosebleed) penicillin (Rash) Medications Please ask your primary doctor or pharmacist before taking any other medication not listed, including over the counter drugs, herbal medications, vitamins and or supplements as they may interact withyour home medications. What How Much When Instructions Last Dose New apixaban (apixaban 5 mg oral tablet) 1 tab(s) by mouth Two (2) times a day Refills: 2 Pickup at [facility] Changed insulin lispro (HumaLOG) (insulin lispro (Humalog) 100 units/ mL injectable solution) Sliding Scale Subcutaneous Three (3) times a day with meals Unchanged acetaminophen (acetaminophen 650 mg oral tablet, extended release) 1 tab(s) Nasogastric Two (2) times a day as needed for as needed for pain Unchanged albuterol (albuterol MDI (90 mcg/ inh) CFC free inhalation aerosol) 2 puff(s) by inhalation Every 4 hours as needed for as needed for wheezing Unchanged amiodarone (amiodarone 200 mg oral tablet) 1 tab(s) Nasogastric Once a day Unchanged amLODIPine (amLODIPine 5 mg oral tablet) 1 tab(s) Nasogastric Once a day Unchanged ammonium lactate topical (ammonium lactate 12% topical cream) 1 application Topical As needed for as needed dry skin Unchanged atorvastatin (atorvastatin 10 mg oral tablet) 1 tab(s) Nasogastric Daily at bedtime Unchanged budesonide-formoterol (Symbicort 80 mcg-4.5 mcg/ inh Inhaler) 2 puff(s) by inhalation Two (2) times a day Unchanged docusate (docusate sodium 10 mg/ mL oral liquid) 10 Milliliter Nasogastric Two (2) times a day Unchanged furosemide (furosemide 40 mg oral tablet) 1 tab(s) Nasogastric Two (2) times a day Unchanged guaiFENesin (guaiFENesin 100 mg/ 5 mL oral liquid) 10 Milliliter Nasogastric Every 6 hours as needed for as needed for cough Unchanged insulin glargine 16 unit(s) Subcutaneous Daily before supper Unchanged insulin isophane (NPH) 38 unit(s) Subcutaneous Every day Unchanged metoprolol (metoprolol tartrate 37.5 mg oral tablet) 1 tab(s) Nasogastric Two (2) times a day Unchanged multivitamin with minerals (Centrum) 1 tab(s) Nasogastric Once a day Unchanged pantoprazole 40 Milligram Nasogastric Once a day Unchanged polyethylene glycol 3350 (polyethylene glycol 3350 oral powder for reconstitution) 17 gram(s) Nasogastric Every day Unchanged pregabalin (pregabalin 100 mg oral capsule) 1 cap Nasogastric Two (2) times a day Unchanged pregabalin (pregabalin 200 mg oral capsule) 1 cap Nasogastric Daily at bedtime Unchanged senna (senna (sennosides) 8.8 mg/ 5 mL oral syrup) 5 Milliliter Nasogastric Two (2) times a day Unchanged zinc oxide topical (zinc oxide 13% topical cream) 1 application Topical Two (2) times a day Pharmacy Information [facility]: [address] [place], [place] [phone] What How Much When Comments Stop Taking albuterol-ipratropium (DuoNeb) 3 Milliliter Nebulized inhalation Four (4) times a day Stop Taking aspirin (aspirin 81 mg oral tablet, chewable) 1 tab(s) Nasogastric Every day Stop Taking heparin (heparin 5000 units/ mL injection) 5,000 unit(s) Subcutaneous Every 8 hours Stop Taking lidocaine topical (lidocaine 4% patch) 1 patch(es) Topical Once a day Stop Taking lidocaine topical (lidocaine 4% patch) 2 patch(es) Topical Once a day Stop Taking magnesium hydroxide 30 Milliliter Nasogastric Every 6 hours as needed for as needed for constipation Stop Taking morphine (morphine 10 mg/ 5 mL oral solution) 2.5 Milliliter Nasogastric Every 4 hours as needed for as needed for pain Stop Taking nystatin (nystatin 100,000 units/ mL oral suspension) 5 Milliliter by mouth Four (4) times a day Duration: 14 Days Stop Taking ocular lubricant (Systane Ultra) 1 Drops Both eyes Three (3) times a day Stop Taking ocular lubricant (Systane) 1 drop Both eyes Daily at bedtime Please take this list to your next doctor s visit. Bring all medications you take, including over the counter medications, herbals and other supplements with you to your doctor s visit. Patients and families are reminded to discard old lists and to update any records with all medication providers or retail pharmacies. Education Materials Bowel Obstruction A bowel obstruction means that something is blocking the small or large bowel. The bowel is also called the intestine. It is the long tube that connects the stomach to the opening of the butt (anus).When something blocks the bowel, food and fluids cannot pass through like normal. This condition needs to be treated. Treatment depends on the cause of the problem and how bad the problem is. What are the causes? Common causes of this condition include: Scar tissue (adhesions) from past surgery or from high-energy X-rays (radiation). Recent surgery in the belly. This affects how food moves in the bowel. Some diseases, such as: ? Irritation of the lining of the digestive tract (Crohn's disease). ? Irritation of small pouches in the bowel (diverticulitis). Growths or tumors. A bulging organ (hernia). Twisting of the bowel (volvulus). A foreign body. Slipping of a part of the bowel into another part (intussusception). What are the signs or symptoms? Symptoms of this condition include: Pain in the belly. Feeling sick to your stomach (nauseous). Throwing up (vomiting). Bloating in the belly. Being unable to pass gas. Trouble pooping (constipation). Watery poop (diarrhea). A lot of belching. How is this diagnosed? This condition may be diagnosed based on: A physical exam. Medical history. Imaging tests, such as X-ray or CT scan. Blood tests. Urine tests. How is this treated? Treatment for this condition may include: Fluids and pain medicines that are given through an IV tube. Your doctor may tell you not to eat ordrink if you feel sick to your stomach and are throwing up. Eating a clear liquid diet for a few days. Putting a small tube (nasogastric tube) into the stomach. This will help with pain, discomfort, andnausea by removing blocked air and fluids from the stomach. Surgery. This may be needed if other treatments do not work. Follow these instructions at home: Medicines Take uqxf-bra-wmninvn and prescription medicines only as told by your doctor. If you were prescribed an antibiotic medicine, take it as told by your doctor. Do not stop taking the antibiotic even if you start to feel better. General instructions Follow your diet as told by your doctor. You may need to: ? Only drink clear liquids until you start to get better. ? Avoid solid foods. Return to your normal activities as told by your doctor. Ask your doctor what activities are safe for you. Do not sit for a long time without moving. Get up to take short walks every 1 2 hours. This is important. Ask for help if you feel weak or unsteady. Keep all follow-up visits as told by your doctor. This is important. How is this prevented? After having a bowel obstruction, you may be more likely to have another. You can do some things tostop it from happening again. If you have a long-term (chronic) disease, contact your doctor if you see changes or problems. Take steps to prevent or treat trouble pooping. Your doctor may ask that you: ? Drink enough fluid to keep your pee (urine) pale yellow. ? Take bjnw-goe-sdsfbhy or prescription medicines. ? Eat foods that are high in fiber. These include beans, whole grains, and fresh fruits and vegetables. ? Limit foods that are high in fat and sugar. These include fried or sweet foods. Stay active. Ask your doctor which exercises are safe for you. Avoid stress. Eat three small meals and three small snacks each day. Work with a food expert (dietitian) to make a meal plan that works for you. Do not use any products that contain nicotine or tobacco, such as cigarettes and e-cigarettes. If you need help quitting, ask your doctor. Contact a doctor if: You have a fever. You have chills. Get help right away if: You have pain or cramps that get worse. You throw up blood. You are sick to your stomach. You cannot stop throwing up. You cannot drink fluids. You feel mixed up (confused). You feel very thirsty (dehydrated). Your belly gets more bloated. You feel weak or you pass out (faint). Summary A bowel obstruction means that something is blocking the small or large bowel. Treatment may include IV fluids and pain medicine. You may also have a clear liquid diet, a small tube in your stomach, or surgery. Drink clear liquids and avoid solid foods until you get better. This information is not intended to replace advice given to you by your health care provider. Make sure you discuss any questions you have with your health care provider. Document Released: 03/09/2005 Document Revised: 06/13/2018 Document Reviewed: 06/13/2018 Jenn Rykert Patient Education 2020 [employer]. Additional Information VACCINATE! IT SAVES LIVES! Members of the community who have not yet received the COVID-19 vaccine and would like to receive it can visit one of [facility] vaccine clinics. There are many vaccine clinic locations within the [facility] [address]. For locations and available times, please visit [email or web address].[place].gov/. It is important to note that some COVID mobile vaccine clinics are held outdoors and may be canceled in rainy or stormy conditions. To learn more about pediatric vaccinations (ages 5-11), we invite you to visit the [facility] webpage. [email or web address] learn more about the COVID-19 vaccine, we invite you to visit the CDC website for a list of frequently asked questions.https://www.cdc.gov/coronavirus/2019-ncov/vaccines/faq.html [facility] Patient Portal Access Instructions: Stay connected with your healthcare team and access your personal medical information anytime with the [facility] Patient Portal. Please follow the directions below to create your [facility] account: 1.Access the email account you provided upon registration to the hospital/physician office.2.Look for an invitation email from [facility].3.Open the email and access the invitation link: AcceptInvitation to [facility].4.Fill in the required sharp to create your account. To access your account, visit [email or web address]. Click the blue button labeled Access Patient Portal and then log in with the username and password that you created in the steps above. You will be able to view your test results, lab results, a summary of your visits, upcoming appointments and more. There is also a convenient messaging option where you can send secure messages to your p rovider. In addition, you will have the ability to download any documents or summaries to your computer and/or send the information securely to a physician. Remember that your healthcare information is confidential, so carefully consider who you will allowto register on the [facility] Patient Portal for access to your information. You can also access the [facility] Patient Portal on the [facility] nan. Simply click on Patient Portal and then log into your account. If you would like to receive a full copy of your medical records, please contact the [facility] Medical Records Department by calling [phone], Monday through Monday between 8 a.m. and 4:30 p.m. HOW TO SAFELY DISPOSE OF PRESCRIPTION MEDICATIONS Please use one of the following methods to safely dispose of your unused medications. 1.Use a drug disposal kit: the drug disposal pouch allows you to safely discard your old and unuseddrugs. Ask your nurse to give you one when you are discharged.2.Visit a local take-back location: Many local pharmacies and police departments have programs that collect old and unwanted prescriptiondrugs. Call your local pharmacy or go to http://bit.ly/1K9Wv9y to find one close to you.3.Make use of household items: Use cat litter or old coffee grounds to dispose medications if other options arenot available. Mix your drugs with these household products, seal them in an airtight container andthrow it into the garbage. Call [facility]: [phone] to be sure your drugs can be disposed of in this way. Some medicines may require a different approach.4.Never flush your medications down the toilet. IF YOU HAVE BEEN PRESCRIBED AN OPIOID FOR PAIN If you have been prescribed an opioid (such as hydrocodone, oxycodone or morphine), it is critical to understand the possible side effects and risks of opioid pain medications. Even when taken as directed, opioids can have several side effects including: Tolerance, meaning you might need to take more of a medication for the same pain relief. Nausea, vomiting and/or constipation. Sleepiness, dizziness, dry mouth, confusion, depression or itching. Physical dependence, meaning you have withdrawal symptoms when a medication is stopped, can develop within a few days. KNOW YOUR RESPONSIBILITIES It is important to know exactly how much and how often to take the opioid pain medications you are prescribed. Never take opioids in higher amounts or more often than prescribed. Do not combine opioids with alcohol or other drugs that cause drowsiness, such as benzodiazepines, also known as benzos, including diazepam and alprazolam, muscle relaxants or sleep aids. Never sell or share prescription opioids. This is illegal. Store opioids in a secure place and out of reach of others (including children, family, friends and visitors). The last page of this document has been signed and retained as a CHART COPY. Signatures Patient Education Materials Bowel Obstruction, Oiqe-vg-Zeeb Medication Leaflets My discharge plan and instructions have been reviewed and explained to me and I,KIEL CATHERINE understand my current condition and have read and understand these discharge instructions. I have received a written copy of the plan/instructions. If I have questions, I am aware that I should contact my doctor. Patient/Bacteriologist Pharmaceutical Signature: Date/Time: Relationship to Patient: Witness Name/Signature: Date/Time[id number] Discharge summary Date of Service 04/27/2023 Discharge Diagnosis Unspecified intestinal obstruction, unspecified as to partial versus complete obstruction (K56.609 - ICD-10-CM) Unspecified intestinal obstruction, unspecified as to partial versus complete obstruction (K56.609 - ICD-10-CM) Acute on chronic diastolic (congestive) heart failure (I50.33 - ICD-10-CM) Acute respiratory failure with hypoxia (J96.01 - ICD-10-CM) Hemiplegia, unspecified affecting right dominant side (G81.91 - ICD-10-CM) Chronic diastolic (congestive) heart failure (I50.32 - ICD-10-CM) Body mass index [BMI] 50.0-59.9, adult (Z68.43 - ICD-10-CM) Type 2 diabetes mellitus without complications (E11.9 - ICD-10-CM) Morbid (severe) obesity due to excess calories (E66.01 - ICD-10-CM) Chronic obstructive pulmonary disease, unspecified (J44.9 - ICD-10-CM) Atherosclerotic heart disease of [place] coronary artery without angina pectoris (I25.10 - ICD-10-CM) Bipolar disorder, unspecified (F31.9 - ICD-10-CM) Hypertensive heart disease with heart failure (I11.0 - ICD-10-CM) Hyperlipidemia, unspecified (E78.5 - ICD-10-CM) Obstructive sleep apnea (adult) (pediatric) (G47.33 - ICD-10-CM) Anemia, unspecified (D64.9 - ICD-10-CM) Sleep apnea, unspecified (G47.30 - ICD-10-CM) Unspecified atrial fibrillation (I48.91 - ICD-10-CM) Abdominal pain ([id number] - PNED) Bowel obstruction (K56.7 - ICD-10-CM) Fever ([id number] - PNED) Fever (R50.9 - ICD-10-CM) Additional Orders: Other status: Chest XR 1 View (Portable),04/27/23 9:51:00 EDT, 04/27/23 9:51:00 EDT, Routine, SOB, Full code, Portable: Yes, MTT with Monitor, Isolation: None, IV: No, Oxygen: Yes, Diabetes: Yes, : N/A, Wt k.3, [facility], ME6N(Complete) Ordered: Discharge,04/27/23 15:05:00 EDT, Discharged to: [facility] Facility Ordered: Discharge Activity,As instructed by therapy, 04/27/23 15:05:00 EDT Ordered: Discharge Diet,04/27/23 15:05:00 EDT Ordered: Transfer of Care Activity,Activity As Tolerated, 04/27/23 15:06:00 EDT Ordered: Transfer of Care Code Status,Full Code, Constant Order Ordered: Transfer of Care Diet,04/27/23 15:06:00 EDT Ordered: Transfer of Care Orders Electronically Signed By,04/27/23 15:06:00 EDT, URIMLA GARCÍA MD Ordered: Transfer of Care Prognosis,Fair, Patient Aware: Yes Ordered: Transfer of Care Rehab Potential,Rehab potential fair, 04/27/23 15:06:40 EDT Ordered: apixaban 5 mg oral tablet,Dose : 5 mg = 1 tab(s), Oral, BID, # 60 tab(s), 2 Refill(s), Pharmacy: [facility], 155, cm, 04/23/23 12:45:00 EDT, Height, 123.3, kg, 04/23/23 12:45:00 EDT, Dosing Weight Hospital Course 62-year-old male with a past medical history of status post AVR at [facility] on 03/20/2023, did have a postoperative MCA infarct resulting in R-sided weakness, dysphagia, dysarthria. Also with a history of type 2 diabetes, COPD, CAD, hypertension, hyperlipidemia, heart failure with preserved ejection fraction, and MANISH. Patient was transferred to [facility] on 04/08/2023 for inpatient rehab from [facility]. Was sent to the ER on 04/23/2023 for complaints of abdominal pain and fevers. Last bowel movementwas 4 to 5 days prior to admission. Patient was febrile on admission with temperature of 38.2, had no leukocytosis, hemoglobin 12.4, glucose 292, creatinine 1.17. BNP 1670. CT abdomen/pelvis was obtained which demonstrated mechanical small bowel obstruction and mild pneumatosis. Moderate pericardial effusion was seen. General surgery was consulted and NG tube was placed. Abdominal x-ray today demonstrated nonobstructive bowel gas pattern. Patient has been having regular bowel movements, passingflatus. Echocardiogram done on 04/24/2023 which demonstrated a moderate pericardial effusion, RA/RV was unable to be evaluated to evaluate for chamber collapse. IVC was noted to be dilated. LVEF notedto be normal. Bioprosthetic aortic valve was visualized and noted to be functioning normally. Clinically, patient has chest pain, no tachycardia, hemodynamically stable. Do not feel there is tamponade physiology. Patient did have a repeat CT head on 04/25/2023 which demonstrated a subacute Infarct at the posterior left frontal lobe. [facility] who recommended that we could start anticoagulation based on stable CT images. Apparently the patient had gone into A-fib with RVR after his surgery at [facility], anticoagulation was not started because of his recent stroke. He tolerated anticoagulation here in the hospital. Patient was diuresed intravenously because of concern for heart failure, he was switched back to oral Lasix before being discharged from hospital Patient discharged back to [facility]. Allergies Flonase (Nosebleed) penicillin (Rash) Consults No qualifying data available. Imaging Results and Diagnostics XR Chest 1 View Result Date: April 27, 2023 Verified By: JOE MORE MD CLINICAL STATEMENT: IMPRESSION: 1. Limited study due to patient obesity as well as limited depth ofinspiration. Considering this, there is no gross acute intrathoracic process. CT Head or Brain w/o Contrast Result Date: April 25, 2023 Verified By: VERNON MCMANUS MD CLINICAL STATEMENT: IMPRESSION: At the posterior left frontal lobe, there is acute/subacute infarct measuringup to 3.2 cm AP x 3.7 cm TR, extending to the superior left temporal lobe,with mild mass effect. There is no associated hemorrhage. Follow-up MRIstudy may be useful for further evaluation, as clinically indicated. XR Abdomen AP Result Date: April 24, 2023 Verified By: KASSIDY CLARK DO CLINICAL STATEMENT: IMPRESSION: Nonobstructive bowel gas pattern. Enteric tube is in place. XR Enteric Tube Placement Result Date: April 23, 2023 Verified By: AMERICO ENNIS DO CLINICAL STATEMENT: IMPRESSION: Enteric tube courses through the expected location the gastroesophagealjunction, with distal tip crossing midline, which is likely within the distalstomach, and side port appears to be within the mid to distal gastric body.There are multiple distended small bowel loops. ATTENDING ADDENDUM: AIR OUTLINES A RIGHT LOWER QUADRANT DILATED LOOP OF SMALL BOWEL MEASURING UPTO 4.5 CM IN DIAMETER. THIS COULD REPRESENT INTERVALLY DEVELOPEDPNEUMOPERITONEUM, SMALL BOWEL PNEUMATOSIS VERSUS ARTIFACT. RECOMMEND CLINICAL CORRELATION AND CONSIDER REPEAT CT ABDOMEN/PELVIS ASNEEDED. AGREE THAT ENTERICTUBE TIP PROJECTS OVER THE STOMACH. XR Enteric Tube Placement Result Date: April 23, 2023 Verified By: AMERICO ENNIS DO CLINICAL STATEMENT: IMPRESSION: Markedly limited evaluation with no definite identification of anappropriately positioned enteric tube. There are multiple lines overlyingthe midline and could reflect coiling of the enteric tube within theesophagus. Replacement and repeat radiograph recommended. I have reviewed the resident's preliminary report and agree with findings andimpression. CT Abd/Pelvis w/ IV Contrast Only Result Date: April 23, 2023 Verified By: SHAHEEN VALDIVIA MD CLINICAL STATEMENT: IMPRESSION: Evidence of mechanical small-bowel obstruction as described. The preciselevel of obstruction and underlying etiology is not clearly evident. A shortsegment of small bowel has adjacent mesenteric stranding and likely mildpneumatosis as described. Moderate pericardial effusion. Mild left lower lobe atelectasis and some nodular appearing lower lobeinfiltrates which are nonspecific and will require attention on follow-up. Other incidental findings as described. RECOMMENDATIONS:Unless otherwise specified, incidental findings do not require dedicatedimaging and follow-up. XR Chest 1 View Result Date: April 23, 2023 Verified By: LUNA WEIR, SUMIT Godoy CLINICAL STATEMENT: IMPRESSION: Mild congestive heart failure. Mild bibasilar atelectasis. Physical Exam Vitals and Measurements T: 37.4 C (Oral) TMIN: 36.5 C (Axillary) TMAX: 37.4 C (Oral) HR: 96 RR: 16 BP: 131/62 SpO2: 92% Weight Dosing Weight: 123.3 kg (04/23/23) Dosing Weight: 123.3 kg (04/23/23) GENERAL: Adult male sitting up comfortably in chair in no acute distress. HEENT: Mucous membranes pink and moist NEURO: Alert and oriented X 3, dysarthric, right-sided hemiplegia and right- sided facial droop CVS: S1 & S2 audible, Regular Rate and Rhythm CHEST : No accesory muscle use, equal air entry bilaterally, no adventitious breath sounds GI: Normoactive BS, abdomen soft and non tender EXTREMITIES: Trace bilateral pedal edema Code Status Code Status - Ordered -- 04/23/23 9:53:00 EDT, Full Code, Constant Order Admission Date 04/23/2023 Discharge Date 04/27/2023 Patient Instructions You are treated for bowel obstruction in hospital, prior to being discharged from hospital which improved prior to being discharged from hospital We did a repeat CT head in the hospital and it shows that your stroke is stable, therefore we started you on anticoagulation to prevent further strokes from atrial fibrillation Continue taking all your usual medications Medications New Prescription apixaban (apixaban 5 mg oral tablet)1 tab(s) by mouth two (2) times a day. Refills: 2. Changed insulin lispro (HumaLOG) (insulin lispro (Humalog) 100 units/mL injectable solution)Sliding Scale Subcutaneous three (3) times a day with meals. Unchanged acetaminophen (acetaminophen 650 mg oral tablet, extended release)1 tab(s) Nasogastric two (2) times a day as needed as needed for pain. albuterol (albuterol MDI (90 mcg/inh) CFC free inhalation aerosol)2 puff(s) by inhalation every 4 hours as needed as needed for wheezing. amiodarone (amiodarone 200 mg oral tablet)1 tab(s) Nasogastric once a day. amLODIPine (amLODIPine 5 mg oral tablet)1 tab(s) Nasogastric once a day. ammonium lactate topical (ammonium lactate 12% topical cream)1 application Topical as needed as needed dry skin. atorvastatin (atorvastatin 10 mg oral tablet)1 tab(s) Nasogastric daily at bedtime. budesonide-formoterol (Symbicort 80 mcg-4.5 mcg/inh Inhaler)2 puff(s) by inhalation two (2) times aday. docusate (docusate sodium 10 mg/mL oral liquid)10 Milliliter Nasogastric two (2) times a day. furosemide (furosemide 40 mg oral tablet)1 tab(s) Nasogastric two (2) times a day. guaiFENesin (guaiFENesin 100 mg/5 mL oral liquid)10 Milliliter Nasogastric every 6 hours as needed as needed for cough. insulin bedyarim63 unit(s) Subcutaneous daily before supper. insulin isophane (NPH)38 unit(s) Subcutaneous every day. metoprolol (metoprolol tartrate 37.5 mg oral tablet)1 tab(s) Nasogastric two (2) times a day. multivitamin with minerals (Centrum)1 tab(s) Nasogastric once a day. ebdzstvvmeas91 Milligram Nasogastric once a day. polyethylene glycol 3350 (polyethylene glycol 3350 oral powder for reconstitution)17 gram(s) Nasogastric every day. pregabalin (pregabalin 100 mg oral capsule)1 cap Nasogastric two (2) times a day. pregabalin (pregabalin 200 mg oral capsule)1 cap Nasogastric daily at bedtime. senna (senna (sennosides) 8.8 mg/5 mL oral syrup)5 Milliliter Nasogastric two (2) times a day. zinc oxide topical (zinc oxide 13% topical cream)1 application Topical two (2) times a day. Discontinued albuterol-ipratropium (DuoNeb)3 Milliliter Nebulized inhalation four (4) times a day. aspirin (aspirin 81 mg oral tablet, chewable)1 tab(s) Nasogastric every day. heparin (heparin 5000 units/mL injection)5,000 unit(s) Subcutaneous every 8 hours. lidocaine topical (lidocaine 4% patch)1 patch(es) Topical once a day. lidocaine topical (lidocaine 4% patch)2 patch(es) Topical once a day. magnesium vccvllerx52 Milliliter Nasogastric every 6 hours as needed as needed for constipation. morphine (morphine 10 mg/5 mL oral solution)2.5 Milliliter Nasogastric every 4 hours as needed as needed for pain. nystatin (nystatin 100,000 units/mL oral suspension)5 Milliliter by mouth four (4) times a day for 14 Days. ocular lubricant (Systane Ultra)1 Drops Both eyes three (3) times a day. ocular lubricant (Systane)1 drop Both eyes daily at bedtime. Follow Up Follow Up with [facility], Acute Rehab, When Within 1-2 days Follow Up with [facility] When Within 1-2 days Where: [facility] [address] [place] [address]- [phone] Business (1) Follow Up Appointments No qualifying data available. Follow Up Labs/Studies Discharge Labs No Follow-up Labs Discharge Studies No Follow-up Studies Discharge Diet Discharge Diet - Ordered -- 04/27/23 15:05:00 EDT Transfer of Care Diet - Ordered -- 04/27/23 15:06:00 EDT Discharge Activity Discharge Activity - Ordered -- As instructed by therapy, 04/27/23 15:05:00 EDT Transfer of Care Activity - Ordered -- Activity As Tolerated, 04/27/23 15:06:00 EDT Condition on Discharge Stable Discharge Disposition SNF Information Provided To The patient and his Time Spent Greater than 40 minutes was spent in discharge planning. More than 50% of the time was spent in direct patient care which included time spent speaking with the patient and her family members about her medical condition and treatment plan. Digitally Signed by URMILA GARCÍA MD on 04/27/2023 04:33 PM [id number] Note ORIGINAL EXAMINATION: ONE XRAY VIEW OF THE CHEST04/27/2023 10:15 am COMPARISON: None. 04/23/2023. HISTORY: ORDERING SYSTEM PROVIDED HISTORY: Reason for Exam: SOB FINDINGS: Exam is limited due to obesity. There is stable cardiomegaly. Depth of inspiration is limited. There is some vascular crowding but no skip pulmonary edema. There are no gross pleural effusions or pneumothorax. IMPRESSION: 1. Limited study due to patient obesity as well as limited depth of inspiration. Considering this, there is no gross acute intrathoracic process. Interpreted by: Joe More Preliminary Report By: Joe More Electronically signed By Joe More Dictated Date: 04/27/2023 10:18:29 AM Prelim Date: 04/27/2023 10:19:36 AM Sign Date: 04/27/2023 10:19:36 AM Ordering Provider: [facility]Ohio[id number] Note Date of Service 04/26/2023 Chief Complaint Abdominal pain, shortness of breath Subjective 62-year-old male with a past medical history of status post AVR at [facility] on 03/20/2023, did have a postoperative MCA infarct resulting in R-sided weakness, dysphagia, dysarthria. Also with a history of type 2 diabetes, COPD, CAD, hypertension, hyperlipidemia, heart failure with preserved ejection fraction, and MANISH. Patient was transferred to [facility] on 04/08/2023 for inpatient rehab from [facility]. Was sent to the ER on 04/23/2023 for complaints of abdominal pain and fevers. Last bowel movementwas 4 to 5 days prior to admission. Patient was febrile on admission with temperature of 38.2, had no leukocytosis, hemoglobin 12.4, glucose 292, creatinine 1.17. BNP 1670. CT abdomen/pelvis was obtained which demonstrated mechanical small bowel obstruction and mild pneumatosis. Moderate pericardial effusion was seen. General surgery was consulted and NG tube was placed. Abdominal x-ray today demonstrated nonobstructive bowel gas pattern. Patient has been having regular bowel movements, passingflatus. Echocardiogram done on 04/24/2023 which demonstrated a moderate pericardial effusion, RA/RV was unable to be evaluated to evaluate for chamber collapse. IVC was noted to be dilated. LVEF notedto be normal. Bioprosthetic aortic valve was visualized and noted to be functioning normally. Clinically, patient has chest pain, no tachycardia, hemodynamically stable. Do not feel there is tamponade physiology. Patient did have a repeat CT head on 04/25/2023 which demonstrated a subacute Infarct at the posterior left frontal lobe. This is not new since being discharged from [facility]. No hemorrhage. Will start anticoagulation due to history of paroxysmal postoperative A-fib. On exam, patient is sitting up in his chair. No chest pain, mild shortness of breath. Mild abdominal pain but this is improved. No nausea, vomiting, diarrhea. Tolerating oral intake. Objective Vitals and Measurements T: 36.7 C (Oral) TMIN: 36.5 C (Oral) TMAX: 37.4 C (Oral) HR: 88 RR: 20 BP: 124/66 SpO2: 96% Intake and Output 7AM Yesterday to 7AM Today Intake and Output (Last 24 hours) Intake Oral Intake 880.00 Supplement Intake 0.00 Output Urine Voided 1425.00 Stool Count 0.00 Urine Count 2.00 Total Summary Total Intake 880.00 Total Output 1425.00 Fluid Balance -545.00 Physical Exam Physical Exam General: Alert, appropriate and awake, oriented to time, people and place Skin: No rash. Warm, Dry, Intact HEENT: Head is normocephalic and atraumatic. No lesions. Pupils equal in size. Extraocular movements within normal limits. Nose: No septal deviation. Mouth: Oropharynx mucosa is without lesion. Neck: Supple. No lymphadenopathy, thyromegaly noted. Lungs: Bilaterally clear/diminished breath sounds with no crepitation or wheeze. Unlabored Cardiovascular: Hepatojugular reflux present. Bilateral lower extremity 1-2+ edema Abdomen: Abdomen is soft, nontender. Bowel sounds positive all four quadrants. Extremities: Bilateral lower extremity 1-2+ edema, pulses palpable Neurological: Following simple commands, moving all extremities. Weight Dosing Weight: 123.3 kg (04/23/23) Dosing Weight: 123.3 kg (04/23/23) Medications Medications (24) Active Scheduled: (18) albuterol - ipratropium 2.5 mg-0.5 mg/3 mL Inhal Mattie UD 3 mL, Nebulized, TIDRT amiodarone 200 mg tablet 200 mg 1 tab(s), Oral, qDay amLODIPine 5 mg tablet 5 mg 1 tab(s), Oral, qDay apixaban 5 mg tablet 5 mg 1 tab(s), Oral, BID atorvastatin 10 mg tablet 10 mg 1 tab(s), Oral, qHS budesonide 0.5 mg/2 mL Susp UD 0.5 mg 2 mL, Nebulized, BIDRT cefTRIAXone IVP syringe 2 gram(s) 20 mL, IV Push (INT), qDay furosemide 40 mg/4 mL vial 40 mg 4 mL, IV Push, q8h insulin glargine 20 unit(s) 0.2 mL, Subcutaneous (INT), qHS insulin lispro 100 units/mL Soln (3 mL) 5 unit(s) 0.05 mL, Subcutaneous, TIDM metoprolol tartrate 12.5 mg ( HALF-TAB ) 37.5 mg 3 EA, Oral, BIDM metronidazole PMX 500 mg 100 mL, IV Piggyback, q8h ocular lubricant preserved Soln 15 mL 1 drop, Eyes, both, qHS pantoprazole 40 mg EC tablet 40 mg 1 tab(s), Oral, qDayAC potassium chloride 20 mEq ER tablet 20 mEq 1 tab(s), Oral, BIDM pregabalin 50 mg capsule 200 mg 4 cap(s), Oral, qHS pregabalin 50 mg capsule 100 mg 2 cap(s), Oral, BID senna 8.6 mg Tablet 8.6 mg 1 tab(s), Oral, BID Continuous: (0) PRN: (6) acetaminophen-HYDROcodone 325-10 mg tablet 1 tab(s), Oral, q4h acetaminophen-HYDROcodone 325-5 mg tablet 1 tab(s), Oral, q4h albuterol 0.083% Soln UD (2.5mg/3 mL) 2.5 mg 3 mL, Inhalation, q2hRT dextrose 50% Solution Disp syringe 50 mL 12.5 gram(s) 25 mL, IV Push, AsDirected morphine 4 mg/mL 1mL INJ 4 mg 1 mL, IV Push, q3h ondansetron 2 mg/ 1 mL 2 mL INJ 4 mg 2 mL, IV Push, q4h Lab Results 04/25 07:26 WBC: 7.0 Hgb: 11.6 L Hct: 34.0 L Platelet: 189 Neutrophil %: 72.9 Glucose Level: 190 H Sodium Level: 141 Potassium Level: 3.6 BUN: 17.0 Creatinine Lvl (s): 0.70 04/24 03:38 WBC: 6.4 Hgb: 10.8 L Hct: 31.5 L Platelet: 159 Neutrophil %: 75.0 Glucose Level: 169 H Sodium Level: 140 Potassium Level: 3.7 BUN: 22.0 Creatinine Lvl (s): 0.71 EKG Electrocardiogram (EKG) - InProcess -- 04/26/23 3:12:00 EDT Assessment/Plan 1. Small bowel obstruction 2. Acute on chronic heart failure with preserved ejection fraction 3. Dysphagia 4. Recent CVA 5. Recent AVR 6. Postoperative A-fib 7. Type 2 diabetes 8. Hypertension 9. Hyperlipidemia Small bowel obstruction, tolerating oral intake, having regular bowel movements. Resolved. Acute on chronic heart failure with preserved ejection fraction. IVC dilated on echocardiogram. Will continue with 40 mg of IV Lasix, increase to every 8 hours. BMP and magnesium in the morning Dysphagia, continue diet recommendations that he was receiving at [facility] Recent left MCA infarct resulting in right-sided weakness, dysarthria, dysphagia. Repeat CT head demonstrating subacute posterior left frontal lobe infarct, this is not new since being discharged from [facility]. Due to history of postoperative paroxysmal A-fib, will start anticoagulation. Recent AVR at [facility], did have some postoperative A-fib. Continue amiodarone. Eliquis initiated. CT head as mentioned above Type 2 diabetes, on ADA diet, blood sugars mildly elevated. Increase Lantus to 20 units nightly Hypertension, continue home medications Hyperlipidemia, continue statin DVT prophylaxis: DOAC CODE STATUS: Full code Discussed with patient at the bedside, Discussed with Dr. Toledo Time Spent Total time spent reviewing labs, diagnostics, evaluating the patient, and medical decision makin minutes Digitally Signed by KIEL SAINZ on 04/26/2023 12:51 PM [id number] Respiratory therapy Hospital Progress note Respiratory Therapy Evaluation Entered On: 04/26/2023 7:37 EDT Performed On: 04/26/2023 7:36 EDT by WILLEM Rubio Respiratory Therapy Evaluation Pulmonary Status : Pulmonary disorder Surgical Status : No surgeries Chest X-Ray : Infiltrates, atelectasis, pleural effusion Breath Sounds (RT) : Decreased bilaterally Respiratory Pattern (RT) : Regular RR=12-20 Cough (RT) : Strong, non-productive Respiratory Therapy Evaluation Score : 8 Level of Activity : Ambulatory with assistance Mental Status : Alert, oriented Respiratory Evaluation Triage Score : 4 - (6-10) Freq: TIDRT & Albuterol Q2hRT prn RT Assessment [Frequency/Schedule] : No change indicated. WILLEM Rubio - 04/26/2023 7:36 EDT Digitally Signed by WILLEM Rubio on 04/26/2023 07:36 AM [id number] NoteATRIAL FIBRILLATION CONSIDER ANTERIOR INFARCT Electronic Signature: DANIELE JAMES MD 04/27/2023 22:39:[address] [place] [address] 03-12-2024 Note ORIGINAL EXAMINATION: CT OF THE HEAD WITHOUT CONTRAST 04/25/2023 3:24 pm TECHNIQUE: CT of the head was performed without the administration of intravenous contrast. Automated exposure control, iterative reconstruction, and/or weight based adjustment of the mA/kV was utilized to reduce the radiation dose to as low as reasonably achievable. COMPARISON: None. HISTORY: ORDERING SYSTEM PROVIDED HISTORY: Reason for Exam: PETECHIAL HEMORRHAGE. HX OF 2 STROKES. POS HTN. REINIERLAWN PT. PREV STROKE AFFECTING RT SIDE. SLURRS WORDS petechial hemorrhage evaluation FINDINGS: BRAIN/VENTRICLES: There is moderate hypoattenuation of the deep and subcortical white matter compatible with moderate chronic ischemic microvascular changes. No abnormal extra-axial fluid collection. 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 There is no associated hemorrhage. ORBITS: The visualized portion of the orbits demonstrate no acute abnormality. SINUSES: The visualized paranasal sinuses and mastoid air cells demonstrate no acute abnormality. SOFT TISSUES/SKULL: No acute abnormality of the visualized skull or soft tissues. 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 There is no associated hemorrhage. Follow-up MRI study may be useful for further evaluation, as clinically indicated. Interpreted by: Vernon Mcmanus Preliminary Report By: Vernon Mcmanus Electronically signed By Vernon Mcmanus Dictated Date: 04/25/2023 4:02:59 PM Prelim Date: 04/25/2023 4:14:42 PM Sign Date: 04/25/2023 4:14:42 PM Ordering Provider: [facility]03-12-2024 Note Date of Service 04/25/2023 Chief Complaint weakness Subjective 62-year-old male with a past medical history of status post AVR at [facility] on 03/20/2023, did have a postoperative MCA infarct resulting in R-sided weakness, dysphagia, dysarthria. Also with a history of type 2 diabetes, COPD, CAD, hypertension, hyperlipidemia, heart failure with preserved ejection fraction, and MANISH. Patient was transferred to [facility] on 04/08/2023 for inpatient rehab from [facility]. Was sent to the ER on 04/23/2023 for complaints of abdominal pain and fevers. Last bowel movementwas 4 to 5 days prior to admission. Patient was febrile on admission with temperature of 38.2, had no leukocytosis, hemoglobin 12.4, glucose 292, creatinine 1.17. BNP 1670. CT abdomen/pelvis was obtained which demonstrated mechanical small bowel obstruction and mild pneumatosis. Moderate pericardial effusion was seen. General surgery was consulted and NG tube was placed. Abdominal x-ray today demonstrated nonobstructive bowel gas pattern. Patient has been having regular bowel movements, passingflatus. Echocardiogram done on 04/24/2023 which demonstrated a moderate pericardial effusion, RA/RV was unable to be evaluated to evaluate for chamber collapse. IVC was noted to be dilated. LVEF notedto be normal. Bioprosthetic aortic valve was visualized and noted to be functioning normally. Clinically, patient has chest pain, no tachycardia, hemodynamically stable. Do not feel there is tamponade physiology. On exam, patient is sitting up in his chair eating, no nausea or vomiting. Mild abdominal pain but this is improving. No chest pain, mild shortness of breath. Objective Vitals and Measurements T: 36.8 C (Oral) TMIN: 36.6 C (Oral) TMAX: 37.0 C (Oral) HR: 91 RR: 16 BP: 134/61 SpO2: 95% Intake and Output 7AM Yesterday to 7AM Today Intake and Output (Last 24 hours) Intake Oral Intake 660.00 Output Urine Voided 1000.00 Urinary Catheter Output: 900.00 Gastric Tube Output: 100.00 Stool Count 1.00 Urine Count 1.00 Diaper Count 1.00 Total Summary Total Intake 660.00 Total Output 2000.00 Fluid Balance -1340.00 Physical Exam Physical Exam General: Alert, appropriate and awake, oriented to time, people and place Skin: No rash. Warm, Dry, Intact HEENT: Head is normocephalic and atraumatic. No lesions. Pupils equal in size. Extraocular movements within normal limits. Nose: No septal deviation. Mouth: Oropharynx mucosa is without lesion. Neck: Supple. No lymphadenopathy, thyromegaly noted. Lungs: Bilaterally clear/diminished breath sounds with no crepitation or wheeze. Unlabored Cardiovascular: Heart is regular rhythm, S1S2, No extra-audible heart tones Abdomen: Abdomen is soft, nontender. Bowel sounds positive all four quadrants. Extremities: Bilateral lower extremity 1-2+ edema Neurological: Following simple commands, moving all extremities. Weight Dosing Weight: 123.3 kg (04/23/23) Dosing Weight: 123.3 kg (04/23/23) Medications Medications (22) Active Scheduled: (18) albuterol - ipratropium 2.5 mg-0.5 mg/3 mL Inhal Mattie UD 3 mL, Nebulized, TIDRT amiodarone 200 mg tablet 200 mg 1 tab(s), Oral, qDay amLODIPine 5 mg tablet 5 mg 1 tab(s), Oral, qDay aspirin 81 mg Chewable 81 mg 1 tab(s), Nasogastric, Daily atorvastatin 10 mg tablet 10 mg 1 tab(s), Oral, qHS budesonide 0.5 mg/2 mL Susp UD 0.5 mg 2 mL, Nebulized, BIDRT cefTRIAXone IVP syringe 2 gram(s) 20 mL, IV Push (INT), qDay furosemide 40 mg/4 mL vial 40 mg 4 mL, IV Push, BID heparin 5,000 units/mL (1 mL) vial 5,000 unit(s) 1 mL, Subcutaneous, q8h insulin glargine 16 unit(s) 0.16 mL, Subcutaneous (INT), qHS insulin lispro 100 units/mL Soln (3 mL) 5 unit(s) 0.05 mL, Subcutaneous, TIDM metoprolol 1 mg/mL (5mL) vial 5 mg 5 mL, IV Push, q6h metronidazole PMX 500 mg 100 mL, IV Piggyback, q8h ocular lubricant preserved Soln 15 mL 1 drop, Eyes, both, qHS pantoprazole 40 mg VIAL 40 mg, IV Push, qDay pregabalin 50 mg capsule 200 mg 4 cap(s), Oral, qHS pregabalin 50 mg capsule 100 mg 2 cap(s), Oral, BID senna 8.6 mg Tablet 8.6 mg 1 tab(s), Oral, BID Continuous: (0) PRN: (4) albuterol 0.083% Soln UD (2.5mg/3 mL) 2.5 mg 3 mL, Inhalation, q2hRT dextrose 50% Solution Disp syringe 50 mL 12.5 gram(s) 25 mL, IV Push, AsDirected morphine 2 mg/mL 1 mL syringe 2 mg 1 mL, IV Push, q3h ondansetron 2 mg/ 1 mL 2 mL INJ 4 mg 2 mL, IV Push, q4h Lab Results 04/24 03:38 WBC: 6.4 Hgb: 10.8 L Hct: 31.5 L Platelet: 159 Neutrophil %: 75.0 Glucose Level: 169 H Sodium Level: 140 Potassium Level: 3.7 BUN: 22.0 Creatinine Lvl (s): 0.71 04/23 04:44 WBC: 5.1 Hgb: 11.4 L Hct: 33.9 L Platelet: 180 Neutrophil %: 70.2 Glucose Level: 180 H Sodium Level: 144 Potassium Level: 3.4 L BUN: 33.0 H Creatinine Lvl (s): 0.93 EKG No qualifying data available. Assessment/Plan 1. Small bowel obstruction 2. Acute on chronic heart failure with preserved ejection fraction 3. Dysphagia 4. Recent CVA 5. Recent AVR 6. Postoperative A-fib 7. Type 2 diabetes 8. Hypertension 9. Hyperlipidemia Small bowel obstruction, tolerating oral intake, having regular bowel movements. Resolved. Acute on chronic heart failure with preserved ejection fraction, on IV Lasix twice daily. IVC dilated on echocardiogram. BMP in the morning. Dysphagia, continue diet recommendations that he was receiving at [facility] Recent left MCA infarct resulting in right-sided weakness, dysarthria, dysphagia. Repeat CT head to evaluate petechial hemorrhage, if stable will start Eliquis. Recent AVR at [facility], did have some postoperative A-fib. Continue amiodarone. Plan to start Eliquis ifrepeat CT head is stable Type 2 diabetes, on regular diet. Continue current insulin regimen. Hypertension, continue home medications Hyperlipidemia, continue statin DVT prophylaxis: heparin CODE STATUS: Full code Discussed with patient at the bedside, attempted to update family over the phone, no answer. Discussed with Dr. Toledo Time Spent Total time spent reviewing labs, diagnostics, evaluating the patient, and medical decision makin minutes Digitally Signed by KIEL SAINZ on 04/25/2023 01:17 PM [id number] [facility] Hospital Progress note Date of Service 04/25/2023 Chief Complaint Abdominal pain improved Subjective This is a shared split visit between myself and Dr. Arshad On examination of patient he is seen sitting up in his chair asking for breakfast. Patient reports that he is passing gas and having bowel movements. He denies any abdominal pain nausea or vomiting. Patient would like to eat and be discharged back to rehab. Objective Vitals and Measurements T: 36.8 C (Oral) TMIN: 36.6 C (Oral) TMAX: 37.0 C (Oral) HR: 88 RR: 16 BP: 123/52 SpO2: 94% Intake and Output 7AM Yesterday to 7AM Today Intake and Output (Last 24 hours) Intake Oral Intake 660.00 Output Urine Voided 100.00 Urinary Catheter Output: 900.00 Gastric Tube Output: 100.00 Stool Count 1.00 Urine Count 1.00 Diaper Count 1.00 Total Summary Total Intake 660.00 Total Output 1100.00 Fluid Balance -440.00 Physical Exam General: Awake and alert and in no apparent distress. Able to answer questions and speak in full sentences. Supine in bed. Sitting upright. HEENT: Mucous membranes moist and pink. Sclerae anicteric. PERRLA. Lungs: Chest rise symmetrical. Respirations unlabored. Abdomen: Large, soft, nondistended. No guarding or rigidity. Skin: Normal color for ethnicity. No pallor or diaphoresis. No jaundice. Psychiatric: Calm and cooperative. Weight Dosing Weight: 123.3 kg (04/23/23) Dosing Weight: 123.3 kg (04/23/23) Medications Medications (22) Active Scheduled: (18) albuterol - ipratropium 2.5 mg-0.5 mg/3 mL Inhal Mattie UD 3 mL, Nebulized, TIDRT amiodarone 200 mg tablet 200 mg 1 tab(s), Oral, qDay amLODIPine 5 mg tablet 5 mg 1 tab(s), Oral, qDay aspirin 81 mg Chewable 81 mg 1 tab(s), Nasogastric, Daily atorvastatin 10 mg tablet 10 mg 1 tab(s), Oral, qHS budesonide 0.5 mg/2 mL Susp UD 0.5 mg 2 mL, Nebulized, BIDRT cefTRIAXone IVP syringe 2 gram(s) 20 mL, IV Push (INT), qDay furosemide 40 mg/4 mL vial 40 mg 4 mL, IV Push, BID heparin 5,000 units/mL (1 mL) vial 5,000 unit(s) 1 mL, Subcutaneous, q8h insulin glargine 16 unit(s) 0.16 mL, Subcutaneous (INT), qHS insulin lispro 100 units/mL Soln (3 mL) 5 unit(s) 0.05 mL, Subcutaneous, TIDM metoprolol 1 mg/mL (5mL) vial 5 mg 5 mL, IV Push, q6h metronidazole PMX 500 mg 100 mL, IV Piggyback, q8h ocular lubricant preserved Soln 15 mL 1 drop, Eyes, both, qHS pantoprazole 40 mg VIAL 40 mg, IV Push, qDay pregabalin 50 mg capsule 200 mg 4 cap(s), Oral, qHS pregabalin 50 mg capsule 100 mg 2 cap(s), Oral, BID senna 8.6 mg Tablet 8.6 mg 1 tab(s), Oral, BID Continuous: (0) PRN: (4) albuterol 0.083% Soln UD (2.5mg/3 mL) 2.5 mg 3 mL, Inhalation, q2hRT dextrose 50% Solution Disp syringe 50 mL 12.5 gram(s) 25 mL, IV Push, AsDirected morphine 2 mg/mL 1 mL syringe 2 mg 1 mL, IV Push, q3h ondansetron 2 mg/ 1 mL 2 mL INJ 4 mg 2 mL, IV Push, q4h Lab Results 04/24 03:38 WBC: 6.4 Hgb: 10.8 L Hct: 31.5 L Platelet: 159 Neutrophil %: 75.0 Glucose Level: 169 H Sodium Level: 140 Potassium Level: 3.7 BUN: 22.0 Creatinine Lvl (s): 0.71 04/23 04:44 WBC: 5.1 Hgb: 11.4 L Hct: 33.9 L Platelet: 180 Neutrophil %: 70.2 Glucose Level: 180 H Sodium Level: 144 Potassium Level: 3.4 L BUN: 33.0 H Creatinine Lvl (s): 0.93 Imaging Results and Diagnostics XR Abdomen AP Result Date: April 24, 2023 Verified By: KASSIDY CLARK DO CLINICAL STATEMENT: IMPRESSION: Nonobstructive bowel gas pattern. Enteric tube is in place. XR Enteric Tube Placement Result Date: April 23, 2023 Verified By: AMERICO ENNIS DO CLINICAL STATEMENT: IMPRESSION: Enteric tube courses through the expected location the gastroesophagealjunction, with distal tip crossing midline, which is likely within the distalstomach, and side port appears to be within the mid to distal gastric body.There are multiple distended small bowel loops. ATTENDING ADDENDUM: AIR OUTLINES A RIGHT LOWER QUADRANT DILATED LOOP OF SMALL BOWEL MEASURING UPTO 4.5 CM IN DIAMETER. THIS COULD REPRESENT INTERVALLY DEVELOPEDPNEUMOPERITONEUM, SMALL BOWEL PNEUMATOSIS VERSUS ARTIFACT. RECOMMEND CLINICAL CORRELATION AND CONSIDER REPEAT CT ABDOMEN/PELVIS ASNEEDED. AGREE THAT ENTERICTUBE TIP PROJECTS OVER THE STOMACH. XR Enteric Tube Placement Result Date: April 23, 2023 Verified By: AMERICO ENNIS DO CLINICAL STATEMENT: IMPRESSION: Markedly limited evaluation with no definite identification of anappropriately positioned enteric tube. There are multiple lines overlyingthe midline and could reflect coiling of the enteric tube within theesophagus. Replacement and repeat radiograph recommended. I have reviewed the resident's preliminary report and agree with findings andimpression. CT Abd/Pelvis w/ IV Contrast Only Result Date: April 23, 2023 Verified By: SHAHEEN VALDIVIA MD CLINICAL STATEMENT: IMPRESSION: Evidence of mechanical small-bowel obstruction as described. The preciselevel of obstruction and underlying etiology is not clearly evident. A shortsegment of small bowel has adjacent mesenteric stranding and likely mildpneumatosis as described. Moderate pericardial effusion. Mild left lower lobe atelectasis and some nodular appearing lower lobeinfiltrates which are nonspecific and will require attention on follow-up. Other incidental findings as described. RECOMMENDATIONS:Unless otherwise specified, incidental findings do not require dedicatedimaging and follow-up. XR Chest 1 View Result Date: April 23, 2023 Verified By: LUNA WEIR, SUMIT Godoy CLINICAL STATEMENT: IMPRESSION: Mild congestive heart failure. Mild bibasilar atelectasis. EKG No qualifying data available. Assessment/Plan This patient is a 62-year-old male admitted to the hospitalist secondary to small bowel obstruction. Patient previously in [facility] secondary to patient's severe aortic stenosis statuspost AVR with ascending repair on 06/2023 at [facility] with postop left MCA infarct resulting in left-sided weakness and right upper extremity weakness with dysphagia and dysarthria. From general surgery standpoint patient's abdominal examination has improved. Patient is passing flatulence and having bowel movements. His abdominal examination is benign. Patient had a repeat abdominal x-ray done yesterday showing normal gas pattern per the interpretation of the radiologist. Was started on a clear liquid diet. He has been tolerating this without difficulty Plan: 1. Small bowel obstruction with clinical improvement -Will place the patient back on his diet that he was receiving at [facility] which appears to be minced/moist with mildly thickened liquids. -From a surgical standpoint should the patient tolerate this he can be discharged once cleared by the medical team. -This was discussed with the patient. He was understanding. Case has been discussed with Dr. Arshad. Please see addendum follow. This document was dictated with voice recognition software and may contain grammatical errors Digitally Signed by MIC LA on 04/25/2023 08:16 AM [id number] [facility] Progress note Date of Service 04/25/2023 Chief Complaint Abdominal pain improved Subjective This is a shared split visit between myself and Dr. Arshad On examination of patient he is seen sitting up in his chair asking for breakfast. Patient reports that he is passing gas and having bowel movements. He denies any abdominal pain nausea or vomiting. Patient would like to eat and be discharged back to rehab. Objective Vitals and Measurements T: 36.8 C (Oral) TMIN: 36.6 C (Oral) TMAX: 37.0 C (Oral) HR: 88 RR: 16 BP: 123/52 SpO2: 94% Intake and Output 7AM Yesterday to 7AM Today Intake and Output (Last 24 hours) Intake Oral Intake 660.00 Output Urine Voided 100.00 Urinary Catheter Output: 900.00 Gastric Tube Output: 100.00 Stool Count 1.00 Urine Count 1.00 Diaper Count 1.00 Total Summary Total Intake 660.00 Total Output 1100.00 Fluid Balance -440.00 Physical Exam General: Awake and alert and in no apparent distress. Able to answer questions and speak in full sentences. Supine in bed. Sitting upright. HEENT: Mucous membranes moist and pink. Sclerae anicteric. PERRLA. Lungs: Chest rise symmetrical. Respirations unlabored. Abdomen: Large, soft, nondistended. No guarding or rigidity. Skin: Normal color for ethnicity. No pallor or diaphoresis. No jaundice. Psychiatric: Calm and cooperative. Weight Dosing Weight: 123.3 kg (04/23/23) Dosing Weight: 123.3 kg (04/23/23) Medications Medications (22) Active Scheduled: (18) albuterol - ipratropium 2.5 mg-0.5 mg/3 mL Inhal Mattie UD 3 mL, Nebulized, TIDRT amiodarone 200 mg tablet 200 mg 1 tab(s), Oral, qDay amLODIPine 5 mg tablet 5 mg 1 tab(s), Oral, qDay aspirin 81 mg Chewable 81 mg 1 tab(s), Nasogastric, Daily atorvastatin 10 mg tablet 10 mg 1 tab(s), Oral, qHS budesonide 0.5 mg/2 mL Susp UD 0.5 mg 2 mL, Nebulized, BIDRT cefTRIAXone IVP syringe 2 gram(s) 20 mL, IV Push (INT), qDay furosemide 40 mg/4 mL vial 40 mg 4 mL, IV Push, BID heparin 5,000 units/mL (1 mL) vial 5,000 unit(s) 1 mL, Subcutaneous, q8h insulin glargine 16 unit(s) 0.16 mL, Subcutaneous (INT), qHS insulin lispro 100 units/mL Soln (3 mL) 5 unit(s) 0.05 mL, Subcutaneous, TIDM metoprolol 1 mg/mL (5mL) vial 5 mg 5 mL, IV Push, q6h metronidazole PMX 500 mg 100 mL, IV Piggyback, q8h ocular lubricant preserved Soln 15 mL 1 drop, Eyes, both, qHS pantoprazole 40 mg VIAL 40 mg, IV Push, qDay pregabalin 50 mg capsule 200 mg 4 cap(s), Oral, qHS pregabalin 50 mg capsule 100 mg 2 cap(s), Oral, BID senna 8.6 mg Tablet 8.6 mg 1 tab(s), Oral, BID Continuous: (0) PRN: (4) albuterol 0.083% Soln UD (2.5mg/3 mL) 2.5 mg 3 mL, Inhalation, q2hRT dextrose 50% Solution Disp syringe 50 mL 12.5 gram(s) 25 mL, IV Push, AsDirected morphine 2 mg/mL 1 mL syringe 2 mg 1 mL, IV Push, q3h ondansetron 2 mg/ 1 mL 2 mL INJ 4 mg 2 mL, IV Push, q4h Lab Results 04/24 03:38 WBC: 6.4 Hgb: 10.8 L Hct: 31.5 L Platelet: 159 Neutrophil %: 75.0 Glucose Level: 169 H Sodium Level: 140 Potassium Level: 3.7 BUN: 22.0 Creatinine Lvl (s): 0.71 04/23 04:44 WBC: 5.1 Hgb: 11.4 L Hct: 33.9 L Platelet: 180 Neutrophil %: 70.2 Glucose Level: 180 H Sodium Level: 144 Potassium Level: 3.4 L BUN: 33.0 H Creatinine Lvl (s): 0.93 Imaging Results and Diagnostics XR Abdomen AP Result Date: April 24, 2023 Verified By: KASSIDY CLARK DO CLINICAL STATEMENT: IMPRESSION: Nonobstructive bowel gas pattern. Enteric tube is in place. XR Enteric Tube Placement Result Date: April 23, 2023 Verified By: AMERICO ENNIS DO CLINICAL STATEMENT: IMPRESSION: Enteric tube courses through the expected location the gastroesophagealjunction, with distal tip crossing midline, which is likely within the distalstomach, and side port appears to be within the mid to distal gastric body.There are multiple distended small bowel loops. ATTENDING ADDENDUM: AIR OUTLINES A RIGHT LOWER QUADRANT DILATED LOOP OF SMALL BOWEL MEASURING UPTO 4.5 CM IN DIAMETER. THIS COULD REPRESENT INTERVALLY DEVELOPEDPNEUMOPERITONEUM, SMALL BOWEL PNEUMATOSIS VERSUS ARTIFACT. RECOMMEND CLINICAL CORRELATION AND CONSIDER REPEAT CT ABDOMEN/PELVIS ASNEEDED. AGREE THAT ENTERICTUBE TIP PROJECTS OVER THE STOMACH. XR Enteric Tube Placement Result Date: April 23, 2023 Verified By: AMERICO ENNIS DO CLINICAL STATEMENT: IMPRESSION: Markedly limited evaluation with no definite identification of anappropriately positioned enteric tube. There are multiple lines overlyingthe midline and could reflect coiling of the enteric tube within theesophagus. Replacement and repeat radiograph recommended. I have reviewed the resident's preliminary report and agree with findings andimpression. CT Abd/Pelvis w/ IV Contrast Only Result Date: April 23, 2023 Verified By: SHAHEEN VALDIVIA MD CLINICAL STATEMENT: IMPRESSION: Evidence of mechanical small-bowel obstruction as described. The preciselevel of obstruction and underlying etiology is not clearly evident. A shortsegment of small bowel has adjacent mesenteric stranding and likely mildpneumatosis as described. Moderate pericardial effusion. Mild left lower lobe atelectasis and some nodular appearing lower lobeinfiltrates which are nonspecific and will require attention on follow-up. Other incidental findings as described. RECOMMENDATIONS:Unless otherwise specified, incidental findings do not require dedicatedimaging and follow-up. XR Chest 1 View Result Date: April 23, 2023 Verified By: LUNA WEIR, SUMIT Godoy CLINICAL STATEMENT: IMPRESSION: Mild congestive heart failure. Mild bibasilar atelectasis. EKG No qualifying data available. Assessment/Plan This patient is a 62-year-old male admitted to the hospitalist secondary to small bowel obstruction. Patient previously in [facility] secondary to patient's severe aortic stenosis statuspost AVR with ascending repair on 06/2023 at [facility] with postop left MCA infarct resulting in left-sided weakness and right upper extremity weakness with dysphagia and dysarthria. From general surgery standpoint patient's abdominal examination has improved. Patient is passing flatulence and having bowel movements. His abdominal examination is benign. Patient had a repeat abdominal x-ray done yesterday showing normal gas pattern per the interpretation of the radiologist. Was started on a clear liquid diet. He has been tolerating this without difficulty Plan: 1. Small bowel obstruction with clinical improvement -Will place the patient back on his diet that he was receiving at [facility] which appears to be minced/moist with mildly thickened liquids. -From a surgical standpoint should the patient tolerate this he can be discharged once cleared by the medical team. -This was discussed with the patient. He was understanding. Case has been discussed with Dr. Arshad. Please see addendum follow. This document was dictated with voice recognition software and may contain grammatical errors Digitally Signed by MIC LA on 04/25/2023 08:16 AM [id number] Note Date of Service 04/24/2023 Chief Complaint weakness Subjective 62-year-old male with a past medical history of status post AVR at [facility] on 03/20/2023, did have a postoperative MCA infarct resulting in R-sided weakness, dysphagia, dysarthria. Also with a history of type 2 diabetes, COPD, CAD, hypertension, hyperlipidemia, heart failure with preserved ejection fraction, and MANISH. Patient was transferred to [facility] on 04/08/2023 for inpatient rehab from [facility]. Was sent to the ER on 04/23/2023 for complaints of abdominal pain and fevers. Last bowel movement was 4 to 5 days prior to admission. Patient was febrile on admission with temperature of 38.2, hadno leukocytosis, hemoglobin 12.4, glucose 292, creatinine 1.17. BNP 1670. CT abdomen/pelvis was obtained which demonstrated mechanical small bowel obstruction and mild pneumatosis. Moderate pericardial effusion was seen. General surgery was consulted and NG tube was placed. Abdominal x-ray today demonstrated nonobstructive bowel gas pattern. Patient did reportedly have a bowel movement yesterday evening and has been passing flatus. NG tube to be discontinued today. Echocardiogram pending to evaluate pericardial effusion. On exam, patient is laying in bed, nursing at the bedside. NG tube remains in place. Does endorse some abdominal pain but is improved compared to yesterday. No chest pain or shortness of breath. No nausea or vomiting. Passing flatus, did have a bowel movement yesterday evening. Objective Vitals and Measurements T: 36.8 C (Oral) TMIN: 36.8 C (Oral) TMAX: 37.7 C (Oral) HR: 86(Apical) RR: 20 BP: 120/59 SpO2: 94%HT: 155 cm WT: 123.3 kg BMI: 51.32 Intake and Output 7AM Yesterday to 7AM Today Intake and Output (Last 24 hours) Intake Oral Intake 0.00 Output Urine Voided 601.00 Gastric Tube Output: 1300.00 Stool Count 3.00 Urine Count 0.00 Total Summary Total Intake 0.00 Total Output 1901.00 Fluid Balance -1901.00 Physical Exam Physical Exam General: Alert, appropriate and awake, oriented to time, people and place Skin: No rash. Warm, Dry, Intact HEENT: Head is normocephalic and atraumatic. No lesions. Pupils equal in size. Extraocular movements within normal limits. Nose: No septal deviation. Mouth: Oropharynx mucosa is without lesion. Neck: Supple. No lymphadenopathy, thyromegaly noted. Lungs: Bilaterally clear/diminished breath sounds with no crepitation or wheeze. Unlabored Cardiovascular: Heart is regular rhythm, S1S2, No extra-audible heart tones Abdomen: Generalized abdominal pain on palpation, minimal distention, soft Extremities: No clubbing, cyanosis or edema. Peripheral pulses palpable. No calf tenderness. Adequate peripheral circulation. Neurological: Following simple commands Weight Dosing Weight: 123.3 kg (04/23/23) Dosing Weight: 123.3 kg (04/23/23) Medications Medications (13) Active Scheduled: (9) albuterol - ipratropium 2.5 mg-0.5 mg/3 mL Inhal Mattie UD 3 mL, Nebulized, TIDRT budesonide 0.5 mg/2 mL Susp UD 0.5 mg 2 mL, Nebulized, BIDRT ciprofloxacin PMX 400 mg 200 mL, IV Piggyback, q12h heparin 5,000 units/mL (1 mL) vial 5,000 unit(s) 1 mL, Subcutaneous, q8h metoprolol 1 mg/mL (5mL) vial 5 mg 5 mL, IV Push, q6h metronidazole PMX 500 mg 100 mL, IV Piggyback, q8h ocular lubricant preserved Soln 15 mL 1 drop, Eyes, both, qHS pantoprazole 40 mg VIAL 40 mg, IV Push, qDay potassium chloride (PMX) 20 mEq/100 mL 20 mEq 100 mL, IV Piggyback, q2hrs Continuous: (0) PRN: (4) albuterol 0.083% Soln UD (2.5mg/3 mL) 2.5 mg 3 mL, Inhalation, q2hRT dextrose 50% Solution Disp syringe 50 mL 12.5 gram(s) 25 mL, IV Push, AsDirected morphine 2 mg/mL 1 mL syringe 2 mg 1 mL, IV Push, q3h ondansetron 2 mg/ 1 mL 2 mL INJ 4 mg 2 mL, IV Push, q4h Lab Results 04/23 04:44 WBC: 5.1 Hgb: 11.4 L Hct: 33.9 L Platelet: 180 Neutrophil %: 70.2 Glucose Level: 180 H Sodium Level: 144 Potassium Level: 3.4 L BUN: 33.0 H Creatinine Lvl (s): 0.93 04/22 05:34 WBC: 9.2 Hgb: 12.4 L Hct: 36.1 L Platelet: 198 Neutrophil %: 80.6 H Glucose Level: 292 H Sodium Level: 136 Potassium Level: 4.2 BUN: 30.0 H Creatinine Lvl (s): 1.17 EKG No qualifying data available. Assessment/Plan 1. Small bowel obstruction 2. Acute on chronic heart failure with preserved ejection fraction 3. Dysphagia 4. Recent CVA 5. Recent AVR 6. Postoperative A-fib 7. Type 2 diabetes 8. Hypertension 9. Hyperlipidemia Small bowel obstruction, abdominal x-ray today demonstrating nonobstructive bowel gas pattern. Started on clear liquids and NG tube discontinued per general surgery Acute on chronic heart failure with preserved ejection fraction, was on Lasix twice daily at [facility], restart this. Dysphagia, continue diet recommendations that he was receiving at [facility] Recent left MCA infarct resulting in right-sided weakness, dysarthria, dysphagia. Restart baby aspirin and statin Recent AVR at [facility], did have some postoperative A-fib. Continue amiodarone. Type 2 diabetes, started on clear liquid diet. Start Lantus that he was taking at [facility], 16 units nightly. Hold NPH. Start Humalog 5 units 3 times daily Hypertension, continue home medications Hyperlipidemia, continue statin CODE STATUS: Full code Discussed with patient at the bedside, attempted to update family over the phone, no answer. Discussed with Dr. Warren Digitally Signed by KIEL SAINZ on 04/24/2023 12:37 PM [facility] [id number] Note Date of Service 04/24/2023 Chief Complaint weakness Subjective 62-year-old male with a past medical history of status post AVR at [facility] on 03/20/2023, did have a postoperative MCA infarct resulting in R-sided weakness, dysphagia, dysarthria. Also with a history of type 2 diabetes, COPD, CAD, hypertension, hyperlipidemia, heart failure with preserved ejection fraction, and MANISH. Patient was transferred to [facility] on 04/08/2023 for inpatient rehab from [facility]. Was sent to the ER on 04/23/2023 for complaints of abdominal pain and fevers. Last bowel movementwas 4 to 5 days prior to admission. Patient was febrile on admission with temperature of 38.2, had no leukocytosis, hemoglobin 12.4, glucose 292, creatinine 1.17. BNP 1670. CT abdomen/pelvis was obtained which demonstrated mechanical small bowel obstruction and mild pneumatosis. Moderate pericardial effusion was seen. General surgery was consulted and NG tube was placed. Abdominal x-ray today demonstrated nonobstructive bowel gas pattern. Patient did reportedly have a bowel movement yesterday evening and has been passing flatus. NG tube to be discontinued today. Echocardiogram pending to evaluate pericardial effusion. On exam, patient is laying in bed, nursing at the bedside. NG tube remains in place. Does endorse some abdominal pain but is improved compared to yesterday. No chest pain or shortness of breath. No nausea or vomiting. Passing flatus, did have a bowel movement yesterday evening. Objective Vitals and Measurements T: 36.8 C (Oral) TMIN: 36.8 C (Oral) TMAX: 37.7 C (Oral) HR: 86(Apical) RR: 20 BP: 120/59 SpO2: 94%HT: 155 cm WT: 123.3 kg BMI: 51.32 Intake and Output 7AM Yesterday to 7AM Today Intake and Output (Last 24 hours) Intake Oral Intake 0.00 Output Urine Voided 601.00 Gastric Tube Output: 1300.00 Stool Count 3.00 Urine Count 0.00 Total Summary Total Intake 0.00 Total Output 1901.00 Fluid Balance -1901.00 Physical Exam Physical Exam General: Alert, appropriate and awake, oriented to time, people and place Skin: No rash. Warm, Dry, Intact HEENT: Head is normocephalic and atraumatic. No lesions. Pupils equal in size. Extraocular movements within normal limits. Nose: No septal deviation. Mouth: Oropharynx mucosa is without lesion. Neck: Supple. No lymphadenopathy, thyromegaly noted. Lungs: Bilaterally clear/diminished breath sounds with no crepitation or wheeze. Unlabored Cardiovascular: Heart is regular rhythm, S1S2, No extra-audible heart tones Abdomen: Generalized abdominal pain on palpation, minimal distention, soft Extremities: No clubbing, cyanosis or edema. Peripheral pulses palpable. No calf tenderness. Adequate peripheral circulation. Neurological: Following simple commands Weight Dosing Weight: 123.3 kg (04/23/23) Dosing Weight: 123.3 kg (04/23/23) Medications Medications (13) Active Scheduled: (9) albuterol - ipratropium 2.5 mg-0.5 mg/3 mL Inhal Mattie UD 3 mL, Nebulized, TIDRT budesonide 0.5 mg/2 mL Susp UD 0.5 mg 2 mL, Nebulized, BIDRT ciprofloxacin PMX 400 mg 200 mL, IV Piggyback, q12h heparin 5,000 units/mL (1 mL) vial 5,000 unit(s) 1 mL, Subcutaneous, q8h metoprolol 1 mg/mL (5mL) vial 5 mg 5 mL, IV Push, q6h metronidazole PMX 500 mg 100 mL, IV Piggyback, q8h ocular lubricant preserved Soln 15 mL 1 drop, Eyes, both, qHS pantoprazole 40 mg VIAL 40 mg, IV Push, qDay potassium chloride (PMX) 20 mEq/100 mL 20 mEq 100 mL, IV Piggyback, q2hrs Continuous: (0) PRN: (4) albuterol 0.083% Soln UD (2.5mg/3 mL) 2.5 mg 3 mL, Inhalation, q2hRT dextrose 50% Solution Disp syringe 50 mL 12.5 gram(s) 25 mL, IV Push, AsDirected morphine 2 mg/mL 1 mL syringe 2 mg 1 mL, IV Push, q3h ondansetron 2 mg/ 1 mL 2 mL INJ 4 mg 2 mL, IV Push, q4h Lab Results 04/23 04:44 WBC: 5.1 Hgb: 11.4 L Hct: 33.9 L Platelet: 180 Neutrophil %: 70.2 Glucose Level: 180 H Sodium Level: 144 Potassium Level: 3.4 L BUN: 33.0 H Creatinine Lvl (s): 0.93 04/22 05:34 WBC: 9.2 Hgb: 12.4 L Hct: 36.1 L Platelet: 198 Neutrophil %: 80.6 H Glucose Level: 292 H Sodium Level: 136 Potassium Level: 4.2 BUN: 30.0 H Creatinine Lvl (s): 1.17 EKG No qualifying data available. Assessment/Plan 1. Small bowel obstruction 2. Acute on chronic heart failure with preserved ejection fraction 3. Dysphagia 4. Recent CVA 5. Recent AVR 6. Postoperative A-fib 7. Type 2 diabetes 8. Hypertension 9. Hyperlipidemia Small bowel obstruction, abdominal x-ray today demonstrating nonobstructive bowel gas pattern. Started on clear liquids and NG tube discontinued per general surgery Acute on chronic heart failure with preserved ejection fraction, was on Lasix twice daily at [facility], restart this. Dysphagia, continue diet recommendations that he was receiving at [facility] Recent left MCA infarct resulting in right-sided weakness, dysarthria, dysphagia. Restart baby aspirin and statin Recent AVR at [facility], did have some postoperative A-fib. Continue amiodarone. Type 2 diabetes, started on clear liquid diet. Start Lantus that he was taking at [facility], 16 units nightly. Hold NPH. Start Humalog 5 units 3 times daily Hypertension, continue home medications Hyperlipidemia, continue statin CODE STATUS: Full code Discussed with patient at the bedside, attempted to update family over the phone, no answer. Discussed with Dr. Warren Digitally Signed by KIEL SAINZ APRN-TODD on 04/24/2023 12:37 PM [facility] [id number] Note* Exam Date Time Procedure Performing Provider Status 04/24/23 5:13 PM Echocardiogram, Adult - CV Auth (Verified) [facility] 03-11-2024 Miscellaneous Notes* Telephone Encounter - Lynda Horn - 04/24/2023 3:21 PM EDT Contacted patient via Phone to schedule appointment; no answer -VMM left requesting for a return phone call. Mailing sent to the patient. Lynda Horn November 07, 2022 11:53 AM [facility] Note Date of Service 04/24/2023 Chief Complaint weakness Subjective 62-year-old male with a past medical history of status post AVR at [facility] on 03/20/2023, did have a postoperative MCA infarct resulting in R-sided weakness, dysphagia, dysarthria. Also with a history of type 2 diabetes, COPD, CAD, hypertension, hyperlipidemia, heart failure with preserved ejection fraction, and MANISH. Patient was transferred to [facility] on 04/08/2023 for inpatient rehab from [facility]. Was sent to the ER on 04/23/2023 for complaints of abdominal pain and fevers. Last bowel movementwas 4 to 5 days prior to admission. Patient was febrile on admission with temperature of 38.2, had no leukocytosis, hemoglobin 12.4, glucose 292, creatinine 1.17. BNP 1670. CT abdomen/pelvis was obtained which demonstrated mechanical small bowel obstruction and mild pneumatosis. Moderate pericardial effusion was seen. General surgery was consulted and NG tube was placed. Abdominal x-ray today demonstrated nonobstructive bowel gas pattern. Patient did reportedly have a bowel movement yesterday evening and has been passing flatus. NG tube to be discontinued today. Echocardiogram pending to evaluate pericardial effusion. On exam, patient is laying in bed, nursing at the bedside. NG tube remains in place. Does endorse some abdominal pain but is improved compared to yesterday. No chest pain or shortness of breath. No nausea or vomiting. Passing flatus, did have a bowel movement yesterday evening. Objective Vitals and Measurements T: 36.8 C (Oral) TMIN: 36.8 C (Oral) TMAX: 37.7 C (Oral) HR: 86(Apical) RR: 20 BP: 120/59 SpO2: 94%HT: 155 cm WT: 123.3 kg BMI: 51.32 Intake and Output 7AM Yesterday to 7AM Today Intake and Output (Last 24 hours) Intake Oral Intake 0.00 Output Urine Voided 601.00 Gastric Tube Output: 1300.00 Stool Count 3.00 Urine Count 0.00 Total Summary Total Intake 0.00 Total Output 1901.00 Fluid Balance -1901.00 Physical Exam Physical Exam General: Alert, appropriate and awake, oriented to time, people and place Skin: No rash. Warm, Dry, Intact HEENT: Head is normocephalic and atraumatic. No lesions. Pupils equal in size. Extraocular movements within normal limits. Nose: No septal deviation. Mouth: Oropharynx mucosa is without lesion. Neck: Supple. No lymphadenopathy, thyromegaly noted. Lungs: Bilaterally clear/diminished breath sounds with no crepitation or wheeze. Unlabored Cardiovascular: Heart is regular rhythm, S1S2, No extra-audible heart tones Abdomen: Generalized abdominal pain on palpation, minimal distention, soft Extremities: No clubbing, cyanosis or edema. Peripheral pulses palpable. No calf tenderness. Adequate peripheral circulation. Neurological: Following simple commands Weight Dosing Weight: 123.3 kg (04/23/23) Dosing Weight: 123.3 kg (04/23/23) Medications Medications (13) Active Scheduled: (9) albuterol - ipratropium 2.5 mg-0.5 mg/3 mL Inhal Mattie UD 3 mL, Nebulized, TIDRT budesonide 0.5 mg/2 mL Susp UD 0.5 mg 2 mL, Nebulized, BIDRT ciprofloxacin PMX 400 mg 200 mL, IV Piggyback, q12h heparin 5,000 units/mL (1 mL) vial 5,000 unit(s) 1 mL, Subcutaneous, q8h metoprolol 1 mg/mL (5mL) vial 5 mg 5 mL, IV Push, q6h metronidazole PMX 500 mg 100 mL, IV Piggyback, q8h ocular lubricant preserved Soln 15 mL 1 drop, Eyes, both, qHS pantoprazole 40 mg VIAL 40 mg, IV Push, qDay potassium chloride (PMX) 20 mEq/100 mL 20 mEq 100 mL, IV Piggyback, q2hrs Continuous: (0) PRN: (4) albuterol 0.083% Soln UD (2.5mg/3 mL) 2.5 mg 3 mL, Inhalation, q2hRT dextrose 50% Solution Disp syringe 50 mL 12.5 gram(s) 25 mL, IV Push, AsDirected morphine 2 mg/mL 1 mL syringe 2 mg 1 mL, IV Push, q3h ondansetron 2 mg/ 1 mL 2 mL INJ 4 mg 2 mL, IV Push, q4h Lab Results 04/23 04:44 WBC: 5.1 Hgb: 11.4 L Hct: 33.9 L Platelet: 180 Neutrophil %: 70.2 Glucose Level: 180 H Sodium Level: 144 Potassium Level: 3.4 L BUN: 33.0 H Creatinine Lvl (s): 0.93 04/22 05:34 WBC: 9.2 Hgb: 12.4 L Hct: 36.1 L Platelet: 198 Neutrophil %: 80.6 H Glucose Level: 292 H Sodium Level: 136 Potassium Level: 4.2 BUN: 30.0 H Creatinine Lvl (s): 1.17 EKG No qualifying data available. Assessment/Plan 1. Small bowel obstruction 2. Acute on chronic heart failure with preserved ejection fraction 3. Dysphagia 4. Recent CVA 5. Recent AVR 6. Postoperative A-fib 7. Type 2 diabetes 8. Hypertension 9. Hyperlipidemia Small bowel obstruction, abdominal x-ray today demonstrating nonobstructive bowel gas pattern. Started on clear liquids and NG tube discontinued per general surgery Acute on chronic heart failure with preserved ejection fraction, was on Lasix twice daily at [facility], restart this. Dysphagia, continue diet recommendations that he was receiving at [facility] Recent left MCA infarct resulting in right-sided weakness, dysarthria, dysphagia. Restart baby aspirin and statin Recent AVR at [facility], did have some postoperative A-fib. Continue amiodarone. Type 2 diabetes, started on clear liquid diet. Start Lantus that he was taking at [facility], 16 units nightly. Hold NPH. Start Humalog 5 units 3 times daily Hypertension, continue home medications Hyperlipidemia, continue statin CODE STATUS: Full code Discussed with patient at the bedside, attempted to update family over the phone, no answer. Discussed with Dr. Warren Digitally Signed by KIEL SAINZ on 04/24/2023 12:37 PM [id number] Note Date of Service 04/24/2023 Reason for Consultation Admission From: E[facility] Consult Skin Team re: Pressure Staging - Ordered -- 04/23/23 21:49:14 EDT Skin Team Findings Vitals and Measurements T: 36.8 C (Oral) TMIN: 36.8 C (Oral) TMAX: 37.8 C (Oral) HR: 87 RR: 20 BP: 120/59 SpO2: 94% HT: 155cm WT: 123.3 kg BMI: 51.32 Pressure Area Details ------Pressure Area------ Coccyx - Pressure Area Description: Yellow Coccyx - Pressure Area Drainage: Small, Serous Coccyx - Pressure Area Dressing Description: Removed Coccyx - Pressure Area Dressing Type: Transparent silicone dressing Coccyx - Pressure Area Surrounding Tissue: Erythema Coccyx - Pressure Ulcer Present On Admission: Yes Coccyx - Pressure Ulcer Stage: Unstageable ------Pressure Area Measurements------ Coccyx - Pressure Area Length: 2.5 cm Coccyx - Pressure Area Width: 0.3 cm Coccyx - Pressure Area Depth: 0.1 cm Assessments and Recommendations ------Assessments------ Current Skin/Wound Interventions: Hospital bed, Turn and position system, Turn and reposition every2 hours, Other: dietitian ------Recommendations------ Recommended Skin/Wound Interventions: Low air loss mattress, Seat cushion, Turn and position system, Turn and reposition every 2 hours, Proposed orders sent to physician, Other: Medihoney gel & foam DSG Daily & prn; float heels off mattress with a pillow Education Wound care, prevention interventions, reinforce as needed Problem List/Past Medical History Ongoing Bipolar Chronic back pain greater than three months duration HTN (hypertension) Obesity Sleep apnea Historical No qualifying data Digitally Signed by Ariadne Moore RN, Skin Team on 04/24/2023 11:26 AM [id number] Note ORIGINAL EXAMINATION: ONE SUPINE XRAY VIEW(S) OF THE ABDOMEN04/24/2023 10:52 am COMPARISON: 04/23/2023 HISTORY: ORDERING SYSTEM PROVIDED HISTORY: Reason for Exam: SBO FINDINGS: Enteric tube courses centrally with the distal tip and side port over the mid body of the stomach. Bowel gas pattern is nonobstructive. IMPRESSION: Nonobstructive bowel gas pattern. Enteric tube is in place. Interpreted by: Kassidy Clark DO Preliminary Report By: Kassidy Clark DO Electronically signed By Kassidy Clark DO Dictated Date: 04/24/2023 11:15:28 AM Prelim Date: 04/24/2023 11:17:01 AM Sign Date: 04/24/2023 11:17:01 AM Ordering Provider: [facility]Ad[id number] Progress note Date of Service 04/24/23 Subjective Patient had multiple bowel movements yesterday. Patient is unclear if he is passing any gas. Patient has no complaints. NG tube was placed with 1300 mL out with 1100 mL out immediately. Objective Vitals and Measurements T: 36.9 C (Oral) TMIN: 36.9 C (Oral) TMAX: 37.8 C (Oral) HR: 94 RR: 20 BP: 120/52 SpO2: 95% HT: 155cm WT: 123.3 kg BMI: 51.32 Intake and Output 7AM Yesterday to 7AM Today Intake and Output (Last 24 hours) Intake Oral Intake 0.00 Output Urine Voided 601.00 Gastric Tube Output: 1300.00 Stool Count 3.00 Urine Count 0.00 Total Summary Total Intake 0.00 Total Output 1901.00 Fluid Balance -1901.00 Physical Exam Gen: NAD, Alert Abd: obese, soft, mildly tender, no rebound/guarding Weight Dosing Weight: 123.3 kg (04/23/23) Dosing Weight: 123.3 kg (04/23/23) Medications Medications (12) Active Scheduled: (8) albuterol - ipratropium 2.5 mg-0.5 mg/3 mL Inhal Mattie UD 3 mL, Nebulized, TIDRT budesonide 0.5 mg/2 mL Susp UD 0.5 mg 2 mL, Nebulized, BIDRT ciprofloxacin PMX 400 mg 200 mL, IV Piggyback, q12h heparin 5,000 units/mL (1 mL) vial 5,000 unit(s) 1 mL, Subcutaneous, q8h metoprolol 1 mg/mL (5mL) vial 5 mg 5 mL, IV Push, q6h metronidazole PMX 500 mg 100 mL, IV Piggyback, q8h ocular lubricant preserved Soln 15 mL 1 drop, Eyes, both, qHS pantoprazole 40 mg VIAL 40 mg, IV Push, qDay Continuous: (0) PRN: (4) albuterol 0.083% Soln UD (2.5mg/3 mL) 2.5 mg 3 mL, Inhalation, q2hRT dextrose 50% Solution Disp syringe 50 mL 12.5 gram(s) 25 mL, IV Push, AsDirected morphine 2 mg/mL 1 mL syringe 2 mg 1 mL, IV Push, q3h ondansetron 2 mg/ 1 mL 2 mL INJ 4 mg 2 mL, IV Push, q4h Lab Results 04/23 04:44 WBC: 5.1 Hgb: 11.4 L Hct: 33.9 L Platelet: 180 Neutrophil %: 70.2 Glucose Level: 180 H Sodium Level: 144 Potassium Level: 3.4 L BUN: 33.0 H Creatinine Lvl (s): 0.93 04/22 05:34 WBC: 9.2 Hgb: 12.4 L Hct: 36.1 L Platelet: 198 Neutrophil %: 80.6 H Glucose Level: 292 H Sodium Level: 136 Potassium Level: 4.2 BUN: 30.0 H Creatinine Lvl (s): 1.17 EKG No qualifying data available. Assessment/Plan Bowel obstruction 62-year-old male status post recent aortic valve replacement at the [facility] with postoperative stroke who presents with a small bowel obstruction. Patient had multiple bowel movements last night but is still complaining of some pain. Continue with NG tube for now. Small bowel follow-through today. If SBFT is negative we can remove the NG tube start clear liquids and advance as tolerated. Rest of management by medicine Orders: Bed Request - Admit Digitally Signed by RICHARD ARSHAD MD on 04/24/2023 08:07 AM [id number] Note ORIGINAL EXAMINATION: ONE SUPINE XRAY VIEW(S) OF THE ABDOMEN04/23/2023 6:59 pm COMPARISON: Same day abdominal radiograph HISTORY: ORDERING SYSTEM PROVIDED HISTORY: Reason for Exam: NG placement FINDINGS/IMPRESSION: Enteric tube courses through the expected location the gastroesophageal junction, with distal tip crossing midline, which is likely within the distal stomach, and side port appears to be within the mid to distal gastric body. There are multiple distended small bowel loops. ATTENDING ADDENDUM: AIR OUTLINES A RIGHT LOWER QUADRANT DILATED LOOP OF SMALL BOWEL MEASURING UP TO 4.5 CM IN DIAMETER. THIS COULD REPRESENT INTERVALLY DEVELOPED PNEUMOPERITONEUM, SMALL BOWEL PNEUMATOSIS VERSUS ARTIFACT. RECOMMEND CLINICAL CORRELATION AND CONSIDER REPEAT CT ABDOMEN/PELVIS NEEDED. AGREE THAT ENTERIC TUBE TIP PROJECTS OVER THE STOMACH. Interpreted by: Americo Ennis Preliminary Report By: Marshal Alvarenga Electronically signed By Americo Ennis Dictated Date: 04/23/2023 7:27:49 PM Prelim Date: 04/23/2023 7:30:25 PM Sign Date: 04/23/2023 7:50:33 PM Ordering Provider: ALYSON SheehanMagruder [facility] [id number] Note ORIGINAL EXAMINATION: ONE SUPINE XRAY VIEW(S) OF THE ABDOMEN04/23/2023 4:32 pm COMPARISON: 04/23/2023 HISTORY: ORDERING SYSTEM PROVIDED HISTORY: Reason for Exam: NG placement FINDINGS: Markedly limited evaluation due to body habitus but the there is no definite identification of an appropriately positioned enteric tube. However, seen in the midline at the image are multiple lines. Prior median sternotomy. Similar-appearing CHF findings. There are additional lines overlying the abdomen which are presumably external to the patient. IMPRESSION: Markedly limited evaluation with no definite identification of an appropriately positioned enteric tube. There are multiple lines overlying the midline and could reflect coiling of the enteric tube within the esophagus. Replacement and repeat radiograph recommended. I have reviewed the resident's preliminary report and agree with findings and impression. Interpreted by: Americo Ennis Preliminary Report By: Marshal Alvarenga Electronically signed By Americo Ennis Dictated Date: 04/23/2023 5:54:07 PM Prelim Date: 04/23/2023 6:03:00 PM Sign Date: 04/23/2023 6:05:14 PM Ordering Provider: [facility]ol[facility] [id number] Respiratory therapy Hospital Progress note Respiratory Therapy Evaluation Entered On: 04/23/2023 14:19 EDT Performed On: 04/23/2023 14:19 EDT by WILLEM Downey Respiratory Therapy Evaluation Pulmonary Status : Pulmonary disorder Breath Sounds (RT) : Decreased bilaterally Respiratory Pattern (RT) : Regular RR=12-20 Cough (RT) : Strong, non-productive Respiratory Therapy Evaluation Score : 8 Level of Activity : Ambulatory with assistance Mental Status : Alert, oriented Respiratory Evaluation Triage Score : 4 - (6-10) Freq: TIDRT & Albuterol Q2hRT prn RT Assessment [Frequency/Schedule] : TID and Q2 HR PRN WILLEM Downey - 04/23/2023 14:20 EDT Surgical Status : No surgeries Chest X-Ray : Infiltrates, atelectasis, pleural effusion WILLEM Downey - 04/23/2023 14:19 EDT Digitally Signed by WILLEM Downey on 04/23/2023 02:19 PM Digitally Signed by WILLEM Downey RRT on 04/23/2023 02:20 PM [id number] History and physical note [place] [facility] Code Status: Full Code Chief Complaint Chief Complaint: Per ems and patient complaints of severe abdominal pain and fevers since Monday. (04/23/23 05:46:00) History of present illness: 62-year-old gentleman with a past medical history of severe aortic stenosis s/p AVR with ascending repair on 03/20/2023 at [facility], postop left MCA infarct resulting in left-sided weakness and right upper extremity weakness as well as dysphagia/dysarthria. Patient also with history of type 2 diabetes mellitus, morbid obesity, COPD, CAD, bipolar, hypertension, hyperlipidemia, MANISH, diastolic CHF. After patient's aortic valve replacement he was transferred to [facility] for inpatient rehab on 04/08/2023. Patient was later sent to the emergency department for evaluation of abdominal pain and fevers. States that his last bowel movement was around 4 to 5 days ago and his symptoms have been progressing since that time. Patient also states that he is typically not on oxygen but has been on 2 L nasal cannula at [facility] since yesterday. On presentation the ED he was found to be febrile at 38.2, hypoxic on room air at 90% requiring 2 L nasal cannula, otherwise normotensive. Prese ntation patient had no leukocytosis, hemoglobin was 12.4 around his baseline, urinalysis was negative for any signs of infection. Metabolic panel demonstrated hyperglycemia to 92 but otherwise stablerenal function with a baseline of 0.9- 1.0. LFTs were unremarkable. proBNP was elevated at 1670, troponin was negative. COVID/flu/RSV were negative. Chest x-ray demonstrated mild vascular congestion and bilateral atelectasis. CT abdomen pelvis with IV contrast demonstrated evidence of mechanical small bowel obstruction and possible pneumatosis and moderate pericardial effusion and mild left lower atelectasis/nodular appearing infiltrates which are nonspecific. Patient admitted for small bowel obstruction, general surgery on consultation and medicine as primary. Past medical history:Acute ischemic left MCA stroke Aortic stenosis with bicuspid valve Bipolar COPD (chronic obstructive pulmonary disease) Chronic back pain greater than three months duration Fever HLD (hyperlipidemia) HTN (hypertension) Morbid obesity Obesity Sleep apnea Past surgical history: AVR - Aortic valve replacement Surgery Elbow Carpal tunnel release Family history: No family history recorded. Social history:Social & Psychosocial Habits Tobacco 04/06/2023 Tobacco Use: Never (less than 100 in l Home Medications (32) Active acetaminophen 650 mg oral tablet, extended release 650 mg = 1 tab(s), PRN, Nasogastric, BID albuterol MDI (90 mcg/inh) CFC free inhalation aerosol 2 puff(s), PRN, Inhalation, q4h amiodarone 200 mg oral tablet 200 mg = 1 tab(s), Nasogastric, qDay amLODIPine 5 mg oral tablet 5 mg = 1 tab(s), Nasogastric, qDay ammonium lactate 12% topical cream 1 application, PRN, Topical aspirin 81 mg oral tablet, chewable 81 mg = 1 tab(s), Nasogastric, Daily atorvastatin 10 mg oral tablet 10 mg = 1 tab(s), Nasogastric, qHS Centrum 1 tab(s), Nasogastric, qDay docusate sodium 10 mg/mL oral liquid 100 mg = 10 mL, Nasogastric, BID DuoNeb 3 mL, Nebulized, QID furosemide 40 mg oral tablet 40 mg = 1 tab(s), Nasogastric, BID guaiFENesin 100 mg/5 mL oral liquid 200 mg = 10 mL, PRN, Nasogastric, q6h heparin 5000 units/mL injection 5,000 unit(s), Subcutaneous, q8h insulin glargine 16 unit(s), Subcutaneous, acSupper insulin isophane (NPH) 38 unit(s), Subcutaneous, Daily insulin lispro (Humalog) 100 units/mL injectable solution 5 unit(s), Subcutaneous, TIDM insulin lispro (Humalog) 100 units/mL injectable solution Sliding Scale, Subcutaneous, TIDM lidocaine 4% patch 1 patch(es), Topical, qDay lidocaine 4% patch 2 patch(es), Topical, qDay magnesium hydroxide 30 mL, PRN, Nasogastric, q6h metoprolol tartrate 37.5 mg oral tablet 37.5 mg = 1 tab(s), Nasogastric, BID morphine 10 mg/5 mL oral solution 5 mg = 2.5 mL, PRN, Nasogastric, q4h nystatin 100,000 units/mL oral suspension 500,000 unit(s) = 5 mL, Oral, QID pantoprazole 40 mg, Nasogastric, qDay polyethylene glycol 3350 oral powder for reconstitution 17 gram(s), Nasogastric, Daily pregabalin 100 mg oral capsule 100 mg = 1 cap(s), Nasogastric, BID pregabalin 200 mg oral capsule 200 mg = 1 cap(s), Nasogastric, qHS senna (sennosides) 8.8 mg/5 mL oral syrup 8.8 mg = 5 mL, Nasogastric, BID Symbicort 80 mcg-4.5 mcg/inh Inhaler 2 puff(s), Inhalation, BID Systane 1 drop, Eyes, both, qHS Systane Ultra 1 drop(s), Eyes, both, TID zinc oxide 13% topical cream 1 application, Topical, BID Allergies:Flonase (Nosebleed) penicillin (Rash) Review of systems: See HPI for pertinent positives and negatives. All other review of systems have been reviewed and they are negative. Vitals:Temperature Oral: 37.6 DegC High Heart Rate Monitored: 88 bpm Respiratory Rate: 21 br/min High Systolic Blood Pressure Non-Invasive: 158 mmHg High Diastolic Blood Pressure Non-Invasive: 54 mmHg Low Reason For Taking VItal Signs: Routine Physical examination: Constitutional: no acute distress, lying in bed Eyes: no pallor, no icterus ENMT are unremarkable Cardiac: regular, 1-2+ pitting edema bilaterally Respiratory: no wheezing, diminished slightly Gastrointestinal: Abdomen distended, mild tenderness throughout, Musculoskeletal: No joint pains, no swelling, range of motion adequate Skin: no rashes, no nodules, no large scars Neurological: touch sensation intact, strength intact Psychiatric: normal affect, pleasant, cooperative Labs: 04/22 05:34 WBC: 9.2 Hgb: 12.4 L Hct: 36.1 L Platelet: 198 Neutrophil %: 80.6 H Glucose Level: 292 H Sodium Level: 136 Potassium Level: 4.2 BUN: 30.0 H Creatinine Lvl (s): 1.17 CT Abd/Pelvis w/ IV Contrast Only Result Date: April 23, 2023 Verified By: SHAHEEN VALDIVIA MD CLINICAL STATEMENT: IMPRESSION: Evidence of mechanical small-bowel obstruction as described. The preciselevel of obstruction and underlying etiology is not clearly evident. A shortsegment of small bowel has adjacent mesenteric stranding and likely mildpneumatosis as described. Moderate pericardial effusion. Mild left lower lobe atelectasis and some nodular appearing lower lobeinfiltrates which are nonspecific and will require attention on follow-up. Other incidental findings as described. RECOMMENDATIONS:Unless otherwise specified, incidental findings do not require dedicatedimaging and follow-up. XR Chest 1 View Result Date: April 23, 2023 Verified By: LUNA WEIR, SUMIT Godoy CLINICAL STATEMENT: IMPRESSION: Mild congestive heart failure. Mild bibasilar atelectasis. Assessment: 1. Small bowel obstruction 2. Fevers 3. Acute on chronic diastolic heart failure 4. Acute hypoxic respiratory failure 5. Concern for moderate pericardial effusion per CT 6. Chronic anemia 7. History of severe aortic stenosis s/p AVR with ascending repair on 03/20/2023 at [facility] 8. Postop left MCA infarct resulting in left-sided weakness/right upper extremity weakness/dysphagia/dysarthria 9. Hypertension 10. Hyperlipidemia 11. MANISH 12. CAD 13. COPD, not in exacerbation 14. Hx of post-op atrial fibrillation Plan: Will place the patient on heparin for DVT prophylaxis as well as SCDs pending further evaluation bysurgery Given fevers, will continue with Cipro and metronidazole at this time Continue n.p.o. status pending further bowel evaluation General surgery consulted, appreciate their evaluation Overall patient appears to be volume overloaded at this time, did receive 1 L normal saline bolus in the ED, proBNP is up from 621->1670 from at [facility] Will give dose of IV lasix 40 mg and monitor response given NPO status at this time Defer further IVF currently given volume status Echocardiogram given patient's new onset atrial fibrillation as well as moderate pericardial effusion on CT, hx of AVR Continue monitoring electrolytes closely given NPO status and diuretic Digitally Signed by ALYSON WARREN DO on 04/23/2023 12:11 PM [id number] Surgery Consult note Date of Service 04/23/2023 Reason for Consultation SBO Referring Physician Emergency department History of Present Illness This is a split shared visit between myself and Dr. Arshad This patient is a 62-year-old male with a past medical history significant for CVA with speech and right-sided deficits, morbid obesity, and hypertension who presented to the [facility] emergency department with complaints of abdominal pain with associated fevers that has been ongoing for thelast 4-5 days. Of note, he is currently residing at [facility] for rehabilitation following a stroke.CT scan imaging of the abdomen pelvis was obtained showing evidence of a mechanical small bowel obstruction, the precise level of obstruction and underlying etiology was not clearly evident and he had a short segment of small bowel that had adjacent mesenteric stranding and likely mild pneumatosis per the interpretation. His laboratory data was negative for leukocytosis.Urinalysis negative. Electrolytes stable. He was admitted to the hospital under the medical service with consultation placed to general surgery given the CT scan findings. On examination, he was seen resting supine in bed. He did not appear toxic or in any acute distress. He was complaining of diffuse abdominal pain and denied ever experiencing pain like this prior. Hedenied previous abdominal surgeries. His abdomen was distended/rounded and tender. He denied passing flatus or moving his bowels over the last 4-5 days. T-max in the emergency department noted to be 38.2. Review of Systems All other pertinent positives and negatives are present in the HPI. All other systems are reviewed as negative unless otherwise previously mentioned. Physical Exam Vitals and Measurements T: 36.9 C (Oral) TMIN: 36.9 C (Oral) TMAX: 38.2 C (Oral) HR: 101(Monitored) RR: 22 BP: 135/64 SpO2:93% WT: 123.3 kg Weight Dosing Weight: 123.3 kg (04/23/23) General: Awake, alert and oriented x4. In no apparent distress. Able to answer questions. Supine inbed. HEENT: Sclera anicteric. Nasal cannula in place. Heart: and S2 present. Lungs: Chest rise symmetrical. Respirations unlabored. Abdomen: Distended/rounded and tender. No rigidity or guarding noted. Extremities: Freely moving. Psychiatric: Calm and cooperative. Lab Results 04/22 05:34 WBC: 9.2 Hgb: 12.4 L Hct: 36.1 L Platelet: 198 Neutrophil %: 80.6 H Glucose Level: 292 H Sodium Level: 136 Potassium Level: 4.2 BUN: 30.0 H Creatinine Lvl (s): 1.17 Imaging Results and Diagnostics CT Abd/Pelvis w/ IV Contrast Only Result Date: April 23, 2023 Verified By: SHAHEEN VALDIVIA MD CLINICAL STATEMENT: IMPRESSION: Evidence of mechanical small-bowel obstruction as described. The precise level of obstruction and underlying etiology is not clearly evident. A short segment of small bowel has adjacent mesenteric stranding and likely mild pneumatosis as described. Moderate pericardial effusion. Mild left lower lobe atelectasis and some nodular appearing lower lobe infiltrates which are nonspecific and will require attention on follow-up. Other incidental findings as described. RECOMMENDATIONS:Unless otherwise specified, incidental findings do not require dedicated imaging and follow-up. XR Chest 1 View Result Date: April 23, 2023 Verified By: LUNA WEIR, SUMIT Godoy CLINICAL STATEMENT: IMPRESSION: Mild congestive heart failure. Mild bibasilar atelectasis. EKG EC04/23/23: SINUS RHYTHM CONSIDER ANTERIOR INFARCT ABNORMAL T, CONSIDER ISCHEMIA, LATERAL LEADS Electronic Signature: LILILY 04/23/2023 06:34:03 Assessment/Plan Abdominal pain Bowel obstruction Fever This patient is a 62-year-old male who presented to the emergency department (from [facility]) on 04/23/2023 with concerns of diffuse abdominal pain with associated fevers that have been ongoingover the last 4-5 days. T-max in the emergency department noted to be 38.2. CT scan imaging of the abdomen pelvis showed concern for mechanical small bowel obstruction per the interpretation. Generalsurgery was asked to evaluate the patient given the CT scan findings. Emergency department workup, laboratory studies, and diagnostic imaging reviewed. On examination, there is no evidence of peritonitis. He complained of diffuse abdominal pain. Last bowel movement/flatus was approximately 4-5 days ago. Plan: Concern for small bowel obstruction Would recommend n.p.o. status while monitoring return of lower GI function At this time do not feel that the patient needs an NG tube Continue to monitor GI function/abdominal exams Will obtain an x-ray tomorrow morning Encourage mobilization and up to the chair as patient is able As needed antiemetics/pain medication; limit narcotics as able given his lack of GI function Further medical management per the primary medical team Thank you for allowing us to participate in the care of this patient. The case has been discussed with Dr. Arshad. Please see her addendum for further details. Problem List/Past Medical History Ongoing Bipolar Chronic back pain greater than three months duration HTN (hypertension) Obesity Sleep apnea Procedure/Surgical History AVR - Aortic valve replacement Surgery Elbow Carpal tunnel release Medications Inpatient Flagyl IVPB, 500 mg= 100 mL, IV Piggyback, Once Home acetaminophen 650 mg oral tablet, extended release, 650 mg= 1 tab(s), Nasogastric, BID, PRN albuterol MDI (90 mcg/inh) CFC free inhalation aerosol, 2 puff(s), Inhalation, q4h, PRN amiodarone 200 mg oral tablet, 200 mg= 1 tab(s), Nasogastric, qDay amLODIPine 5 mg oral tablet, 5 mg= 1 tab(s), Nasogastric, qDay ammonium lactate 12% topical cream, 1 application, Topical, PRN aspirin 81 mg oral tablet, chewable, 81 mg= 1 tab(s), Nasogastric, Daily atorvastatin 10 mg oral tablet, 10 mg= 1 tab(s), Nasogastric, qHS Centrum, 1 tab(s), Nasogastric, qDay docusate sodium 10 mg/mL oral liquid, 100 mg= 10 mL, Nasogastric, BID DuoNeb, 3 mL, Nebulized, QID furosemide 40 mg oral tablet, 40 mg= 1 tab(s), Nasogastric, BID guaiFENesin 100 mg/5 mL oral liquid, 200 mg= 10 mL, Nasogastric, q6h, PRN heparin 5000 units/mL injection, 5000 unit(s), Subcutaneous, q8h insulin glargine, 16 unit(s), Subcutaneous, acSupper insulin isophane (NPH), 38 unit(s), Subcutaneous, Daily insulin lispro (Humalog) 100 units/mL injectable solution, 5 unit(s), Subcutaneous, TIDM insulin lispro (Humalog) 100 units/mL injectable solution, Sliding Scale, Subcutaneous, TIDM lidocaine 4% patch, 1 patch(es), Topical, qDay lidocaine 4% patch, 2 patch(es), Topical, qDay magnesium hydroxide, 30 mL, Nasogastric, q6h, PRN metoprolol tartrate 37.5 mg oral tablet, 37.5 mg= 1 tab(s), Nasogastric, BID morphine 10 mg/5 mL oral solution, 5 mg= 2.5 mL, Nasogastric, q4h, PRN nystatin 100,000 units/mL oral suspension, 817597 unit(s)= 5 mL, Oral, QID pantoprazole, 40 mg, Nasogastric, qDay polyethylene glycol 3350 oral powder for reconstitution, 17 gram(s), Nasogastric, Daily pregabalin 100 mg oral capsule, 100 mg= 1 cap(s), Nasogastric, BID pregabalin 200 mg oral capsule, 200 mg= 1 cap(s), Nasogastric, qHS senna (sennosides) 8.8 mg/5 mL oral syrup, 8.8 mg= 5 mL, Nasogastric, BID Symbicort 80 mcg-4.5 mcg/inh Inhaler, 2 puff(s), Inhalation, BID Systane, 1 drop, Eyes, both, qHS Systane Ultra, 1 drop(s), Eyes, both, TID zinc oxide 13% topical cream, 1 application, Topical, BID Allergies Flonase (Nosebleed) penicillin (Rash) Social History Smoking Status - 05/07/2013 Current every day smoker Tobacco Nicotine Use: Never (less than 100 in lifetime)., 04/06/2023 Immunizations No qualifying data available. Digitally Signed by ETHAN BOLES on 04/23/2023 10:46 AM [facility] [id number] Surgery Consult note Date of Service 04/23/2023 Reason for Consultation SBO Referring Physician Emergency department History of Present Illness This is a split shared visit between myself and Dr. Arshad This patient is a 62-year-old male with a past medical history significant for CVA with speech and right-sided deficits, morbid obesity, and hypertension who presented to the [facility] emergency department with complaints of abdominal pain with associated fevers that has been ongoing for thelast 4-5 days. Of note, he is currently residing at [facility] for rehabilitation following a stroke.CT scan imaging of the abdomen pelvis was obtained showing evidence of a mechanical small bowel obstruction, the precise level of obstruction and underlying etiology was not clearly evident and he had a short segment of small bowel that had adjacent mesenteric stranding and likely mild pneumatosis per the interpretation. His laboratory data was negative for leukocytosis.Urinalysis negative. Electrolytes stable. He was admitted to the hospital under the medical service with consultation placed to general surgery given the CT scan findings. On examination, he was seen resting supine in bed. He did not appear toxic or in any acute distress. He was complaining of diffuse abdominal pain and denied ever experiencing pain like this prior. Hedenied previous abdominal surgeries. His abdomen was distended/rounded and tender. He denied passing flatus or moving his bowels over the last 4-5 days. T-max in the emergency department noted to be 38.2. Review of Systems All other pertinent positives and negatives are present in the HPI. All other systems are reviewed as negative unless otherwise previously mentioned. Physical Exam Vitals and Measurements T: 36.9 C (Oral) TMIN: 36.9 C (Oral) TMAX: 38.2 C (Oral) HR: 101(Monitored) RR: 22 BP: 135/64 SpO2:93% WT: 123.3 kg Weight Dosing Weight: 123.3 kg (04/23/23) General: Awake, alert and oriented x4. In no apparent distress. Able to answer questions. Supine inbed. HEENT: Sclera anicteric. Nasal cannula in place. Heart: and S2 present. Lungs: Chest rise symmetrical. Respirations unlabored. Abdomen: Distended/rounded and tender. No rigidity or guarding noted. Extremities: Freely moving. Psychiatric: Calm and cooperative. Lab Results 04/22 05:34 WBC: 9.2 Hgb: 12.4 L Hct: 36.1 L Platelet: 198 Neutrophil %: 80.6 H Glucose Level: 292 H Sodium Level: 136 Potassium Level: 4.2 BUN: 30.0 H Creatinine Lvl (s): 1.17 Imaging Results and Diagnostics CT Abd/Pelvis w/ IV Contrast Only Result Date: April 23, 2023 Verified By: SHAHEEN VALDIVIA MD CLINICAL STATEMENT: IMPRESSION: Evidence of mechanical small-bowel obstruction as described. The precise level of obstruction and underlying etiology is not clearly evident. A short segment of small bowel has adjacent mesenteric stranding and likely mild pneumatosis as described. Moderate pericardial effusion. Mild left lower lobe atelectasis and some nodular appearing lower lobe infiltrates which are nonspecific and will require attention on follow-up. Other incidental findings as described. RECOMMENDATIONS:Unless otherwise specified, incidental findings do not require dedicated imaging and follow-up. XR Chest 1 View Result Date: April 23, 2023 Verified By: SUMIT CARRASCO MD CLINICAL STATEMENT: IMPRESSION: Mild congestive heart failure. Mild bibasilar atelectasis. EKG EC04/23/23: SINUS RHYTHM CONSIDER ANTERIOR INFARCT ABNORMAL T, CONSIDER ISCHEMIA, LATERAL LEADS Electronic Signature: AMYLILY COULTER 04/23/2023 06:34:03 Assessment/Plan Abdominal pain Bowel obstruction Fever This patient is a 62-year-old male who presented to the emergency department (from [facility]) on 04/23/2023 with concerns of diffuse abdominal pain with associated fevers that have been ongoingover the last 4-5 days. T-max in the emergency department noted to be 38.2. CT scan imaging of the abdomen pelvis showed concern for mechanical small bowel obstruction per the interpretation. Generalsurgery was asked to evaluate the patient given the CT scan findings. Emergency department workup, laboratory studies, and diagnostic imaging reviewed. On examination, there is no evidence of peritonitis. He complained of diffuse abdominal pain. Last bowel movement/flatus was approximately 4-5 days ago. Plan: Concern for small bowel obstruction Would recommend n.p.o. status while monitoring return of lower GI function At this time do not feel that the patient needs an NG tube Continue to monitor GI function/abdominal exams Will obtain an x-ray tomorrow morning Encourage mobilization and up to the chair as patient is able As needed antiemetics/pain medication; limit narcotics as able given his lack of GI function Further medical management per the primary medical team Thank you for allowing us to participate in the care of this patient. The case has been discussed with Dr. Arshad. Please see her addendum for further details. Problem List/Past Medical History Ongoing Bipolar Chronic back pain greater than three months duration HTN (hypertension) Obesity Sleep apnea Procedure/Surgical History AVR - Aortic valve replacement Surgery Elbow Carpal tunnel release Medications Inpatient Flagyl IVPB, 500 mg= 100 mL, IV Piggyback, Once Home acetaminophen 650 mg oral tablet, extended release, 650 mg= 1 tab(s), Nasogastric, BID, PRN albuterol MDI (90 mcg/inh) CFC free inhalation aerosol, 2 puff(s), Inhalation, q4h, PRN amiodarone 200 mg oral tablet, 200 mg= 1 tab(s), Nasogastric, qDay amLODIPine 5 mg oral tablet, 5 mg= 1 tab(s), Nasogastric, qDay ammonium lactate 12% topical cream, 1 application, Topical, PRN aspirin 81 mg oral tablet, chewable, 81 mg= 1 tab(s), Nasogastric, Daily atorvastatin 10 mg oral tablet, 10 mg= 1 tab(s), Nasogastric, qHS Centrum, 1 tab(s), Nasogastric, qDay docusate sodium 10 mg/mL oral liquid, 100 mg= 10 mL, Nasogastric, BID DuoNeb, 3 mL, Nebulized, QID furosemide 40 mg oral tablet, 40 mg= 1 tab(s), Nasogastric, BID guaiFENesin 100 mg/5 mL oral liquid, 200 mg= 10 mL, Nasogastric, q6h, PRN heparin 5000 units/mL injection, 5000 unit(s), Subcutaneous, q8h insulin glargine, 16 unit(s), Subcutaneous, acSupper insulin isophane (NPH), 38 unit(s), Subcutaneous, Daily insulin lispro (Humalog) 100 units/mL injectable solution, 5 unit(s), Subcutaneous, TIDM insulin lispro (Humalog) 100 units/mL injectable solution, Sliding Scale, Subcutaneous, TIDM lidocaine 4% patch, 1 patch(es), Topical, qDay lidocaine 4% patch, 2 patch(es), Topical, qDay magnesium hydroxide, 30 mL, Nasogastric, q6h, PRN metoprolol tartrate 37.5 mg oral tablet, 37.5 mg= 1 tab(s), Nasogastric, BID morphine 10 mg/5 mL oral solution, 5 mg= 2.5 mL, Nasogastric, q4h, PRN nystatin 100,000 units/mL oral suspension, [id number] unit(s)= 5 mL, Oral, QID pantoprazole, 40 mg, Nasogastric, qDay polyethylene glycol 3350 oral powder for reconstitution, 17 gram(s), Nasogastric, Daily pregabalin 100 mg oral capsule, 100 mg= 1 cap(s), Nasogastric, BID pregabalin 200 mg oral capsule, 200 mg= 1 cap(s), Nasogastric, qHS senna (sennosides) 8.8 mg/5 mL oral syrup, 8.8 mg= 5 mL, Nasogastric, BID Symbicort 80 mcg-4.5 mcg/inh Inhaler, 2 puff(s), Inhalation, BID Systane, 1 drop, Eyes, both, qHS Systane Ultra, 1 drop(s), Eyes, both, TID zinc oxide 13% topical cream, 1 application, Topical, BID Allergies Flonase (Nosebleed) penicillin (Rash) Social History Smoking Status - 05/07/2013 Current every day smoker Tobacco Nicotine Use: Never (less than 100 in lifetime)., 04/06/2023 Immunizations No qualifying data available. Digitally Signed by TEHAN BOLES on 04/23/2023 10:46 AM [id number] Consult note Date of Service 04/23/2023 Reason for Consultation SBO Referring Physician Emergency department History of Present Illness This is a split shared visit between myself and Dr. Arshad This patient is a 62-year-old male with a past medical history significant for CVA with speech and right-sided deficits, morbid obesity, and hypertension who presented to the [facility] emergency department with complaints of abdominal pain with associated fevers that has been ongoing for thelast 4-5 days. Of note, he is currently residing at [facility] for rehabilitation following a stroke.CT scan imaging of the abdomen pelvis was obtained showing evidence of a mechanical small bowel obstruction, the precise level of obstruction and underlying etiology was not clearly evident and he had a short segment of small bowel that had adjacent mesenteric stranding and likely mild pneumatosis per the interpretation. His laboratory data was negative for leukocytosis.Urinalysis negative. Electrolytes stable. He was admitted to the hospital under the medical service with consultation placed to general surgery given the CT scan findings. On examination, he was seen resting supine in bed. He did not appear toxic or in any acute distress. He was complaining of diffuse abdominal pain and denied ever experiencing pain like this prior. Hedenied previous abdominal surgeries. His abdomen was distended/rounded and tender. He denied passing flatus or moving his bowels over the last 4-5 days. T-max in the emergency department noted to be 38.2. Review of Systems All other pertinent positives and negatives are present in the HPI. All other systems are reviewed as negative unless otherwise previously mentioned. Physical Exam Vitals and Measurements T: 36.9 C (Oral) TMIN: 36.9 C (Oral) TMAX: 38.2 C (Oral) HR: 101(Monitored) RR: 22 BP: 135/64 SpO2:93% WT: 123.3 kg Weight Dosing Weight: 123.3 kg (04/23/23) General: Awake, alert and oriented x4. In no apparent distress. Able to answer questions. Supine inbed. HEENT: Sclera anicteric. Nasal cannula in place. Heart: and S2 present. Lungs: Chest rise symmetrical. Respirations unlabored. Abdomen: Distended/rounded and tender. No rigidity or guarding noted. Extremities: Freely moving. Psychiatric: Calm and cooperative. Lab Results 04/22 05:34 WBC: 9.2 Hgb: 12.4 L Hct: 36.1 L Platelet: 198 Neutrophil %: 80.6 H Glucose Level: 292 H Sodium Level: 136 Potassium Level: 4.2 BUN: 30.0 H Creatinine Lvl (s): 1.17 Imaging Results and Diagnostics CT Abd/Pelvis w/ IV Contrast Only Result Date: April 23, 2023 Verified By: SHAHEEN VALDIVIA MD CLINICAL STATEMENT: IMPRESSION: Evidence of mechanical small-bowel obstruction as described. The precise level of obstruction and underlying etiology is not clearly evident. A short segment of small bowel has adjacent mesenteric stranding and likely mild pneumatosis as described. Moderate pericardial effusion. Mild left lower lobe atelectasis and some nodular appearing lower lobe infiltrates which are nonspecific and will require attention on follow-up. Other incidental findings as described. RECOMMENDATIONS:Unless otherwise specified, incidental findings do not require dedicated imaging and follow-up. XR Chest 1 View Result Date: April 23, 2023 Verified By: LUNA WEIR, SUMIT Godoy CLINICAL STATEMENT: IMPRESSION: Mild congestive heart failure. Mild bibasilar atelectasis. EKG EC04/23/23: SINUS RHYTHM CONSIDER ANTERIOR INFARCT ABNORMAL T, CONSIDER ISCHEMIA, LATERAL LEADS Electronic Signature: LILY JEFFERSON DO 04/23/2023 06:34:03 Assessment/Plan Abdominal pain Bowel obstruction Fever This patient is a 62-year-old male who presented to the emergency department (from [facility]) on 04/23/2023 with concerns of diffuse abdominal pain with associated fevers that have been ongoingover the last 4-5 days. T-max in the emergency department noted to be 38.2. CT scan imaging of the abdomen pelvis showed concern for mechanical small bowel obstruction per the interpretation. Generalsurgery was asked to evaluate the patient given the CT scan findings. Emergency department workup, laboratory studies, and diagnostic imaging reviewed. On examination, there is no evidence of peritonitis. He complained of diffuse abdominal pain. Last bowel movement/flatus was approximately 4-5 days ago. Plan: Concern for small bowel obstruction Would recommend n.p.o. status while monitoring return of lower GI function At this time do not feel that the patient needs an NG tube Continue to monitor GI function/abdominal exams Will obtain an x-ray tomorrow morning Encourage mobilization and up to the chair as patient is able As needed antiemetics/pain medication; limit narcotics as able given his lack of GI function Further medical management per the primary medical team Thank you for allowing us to participate in the care of this patient. The case has been discussed with Dr. Arshad. Please see her addendum for further details. Problem List/Past Medical History Ongoing Bipolar Chronic back pain greater than three months duration HTN (hypertension) Obesity Sleep apnea Procedure/Surgical History AVR - Aortic valve replacement Surgery Elbow Carpal tunnel release Medications Inpatient Flagyl IVPB, 500 mg= 100 mL, IV Piggyback, Once Home acetaminophen 650 mg oral tablet, extended release, 650 mg= 1 tab(s), Nasogastric, BID, PRN albuterol MDI (90 mcg/inh) CFC free inhalation aerosol, 2 puff(s), Inhalation, q4h, PRN amiodarone 200 mg oral tablet, 200 mg= 1 tab(s), Nasogastric, qDay amLODIPine 5 mg oral tablet, 5 mg= 1 tab(s), Nasogastric, qDay ammonium lactate 12% topical cream, 1 application, Topical, PRN aspirin 81 mg oral tablet, chewable, 81 mg= 1 tab(s), Nasogastric, Daily atorvastatin 10 mg oral tablet, 10 mg= 1 tab(s), Nasogastric, qHS Centrum, 1 tab(s), Nasogastric, qDay docusate sodium 10 mg/mL oral liquid, 100 mg= 10 mL, Nasogastric, BID DuoNeb, 3 mL, Nebulized, QID furosemide 40 mg oral tablet, 40 mg= 1 tab(s), Nasogastric, BID guaiFENesin 100 mg/5 mL oral liquid, 200 mg= 10 mL, Nasogastric, q6h, PRN heparin 5000 units/mL injection, 5000 unit(s), Subcutaneous, q8h insulin glargine, 16 unit(s), Subcutaneous, acSupper insulin isophane (NPH), 38 unit(s), Subcutaneous, Daily insulin lispro (Humalog) 100 units/mL injectable solution, 5 unit(s), Subcutaneous, TIDM insulin lispro (Humalog) 100 units/mL injectable solution, Sliding Scale, Subcutaneous, TIDM lidocaine 4% patch, 1 patch(es), Topical, qDay lidocaine 4% patch, 2 patch(es), Topical, qDay magnesium hydroxide, 30 mL, Nasogastric, q6h, PRN metoprolol tartrate 37.5 mg oral tablet, 37.5 mg= 1 tab(s), Nasogastric, BID morphine 10 mg/5 mL oral solution, 5 mg= 2.5 mL, Nasogastric, q4h, PRN nystatin 100,000 units/mL oral suspension, 150282 unit(s)= 5 mL, Oral, QID pantoprazole, 40 mg, Nasogastric, qDay polyethylene glycol 3350 oral powder for reconstitution, 17 gram(s), Nasogastric, Daily pregabalin 100 mg oral capsule, 100 mg= 1 cap(s), Nasogastric, BID pregabalin 200 mg oral capsule, 200 mg= 1 cap(s), Nasogastric, qHS senna (sennosides) 8.8 mg/5 mL oral syrup, 8.8 mg= 5 mL, Nasogastric, BID Symbicort 80 mcg-4.5 mcg/inh Inhaler, 2 puff(s), Inhalation, BID Systane, 1 drop, Eyes, both, qHS Systane Ultra, 1 drop(s), Eyes, both, TID zinc oxide 13% topical cream, 1 application, Topical, BID Allergies Flonase (Nosebleed) penicillin (Rash) Social History Smoking Status - 05/07/2013 Current every day smoker Tobacco Nicotine Use: Never (less than 100 in lifetime)., 04/06/2023 Immunizations No qualifying data available. Digitally Signed by ETHAN BOLES on 04/23/2023 10:46 AM [id number] Note ORIGINAL EXAMINATION: CT OF THE ABDOMEN AND PELVIS WITH CONTRAST04/23/2023 8:52 am COMPARISON: None TECHNIQUE: CT of the abdomen and pelvis was performed with the administration of intravenous contrast. Multiplanar reformatted images are provided for review. Automated exposure control, iterative reconstruction, and/or weight based adjustment of the mA/kV was utilized to reduce the radiation dose to as low as reasonably achievable. HISTORY: ORDERING SYSTEM PROVIDED HISTORY: Reason for Exam: Per ems and patient complaints of severe abdominal pain and fevers since Monday. abdominal pain, FINDINGS: There is evidence of mechanical small-bowel obstruction that seems to be in the mid small bowel. A segment of small bowel in the right mid abdomen anteriorly has some adjacent mesenteric stranding and there is suggestion of mild pneumatosis in its wall. No similar findings in the remainder of the small bowel. The distal small bowel is collapsed. Normal appendix. No obvious acute pathology of the colon is seen. The stomach is over distended with fluid also. No ascites or extraluminal free air. The liver, gallbladder, spleen, pancreas, adrenal glands and both kidneys show no acute contributory abnormalities. There is a 4.3 cm fluid attenuation left renal lesion consistent with cyst. Extensively calcified nonaneurysmal aorta and iliac arteries. Grossly normal urinary bladder. Prostate is not enlarged. No significant ventral hernia defects. Some gas in the anterior abdominal wall soft tissues is probably from recent injection. The included lung bases show moderate pericardial effusion. No pleural effusions. Bibasilar atelectasis and some nonspecific infiltrates in the left lower lobe and some left lower lobe atelectasis. No acute skeletal abnormality. Extensive degenerative changes and postop change in the lumbar spine. IMPRESSION: Evidence of mechanical small-bowel obstruction as described. The precise level of obstruction and underlying etiology is not clearly evident. A short segment of small bowel has adjacent mesenteric stranding and likely mild pneumatosis as described. Moderate pericardial effusion. Mild left lower lobe atelectasis and some nodular appearing lower lobe infiltrates which are nonspecific and will require attention on follow-up. Other incidental findings as described. RECOMMENDATIONS: Unless otherwise specified, incidental findings do not require dedicated imaging and follow-up. Interpreted by: Shaheen Valdivia MD Preliminary Report By: Shaheen Valdivia MD Electronically signed By Shaheen Valdivia MD Dictated Date: 04/23/2023 8:56:36 AM Prelim Date: 04/23/2023 9:05:46 AM Sign Date: 04/23/2023 9:05:46 AM Ordering Provider: PRAKASH [facility]03-10-2024 Note ORIGINAL EXAMINATION: ONE XRAY VIEW OF THE CHEST 04/23/2023 7:28 am COMPARISON: Chest x-ray on 04/08/2023 HISTORY: ORDERING SYSTEM PROVIDED HISTORY: Reason for Exam: cough FINDINGS: Patient has had sternotomy. The most superior sternal wire suture is fractured but appears unchanged. Moderate cardiomegaly stable. Mild pulmonary vascular congestion is increased compared with previous chest x-ray. There is mild atelectasis at the lung bases. No large pleural effusion is present. There is no pneumothorax visible. IMPRESSION: Mild congestive heart failure. Mild bibasilar atelectasis. Interpreted by: Sumit Carrasco MD Preliminary Report By: Sumit Carrasco MD Electronically signed By Sumit Carrasco MD Dictated Date: 04/23/2023 7:36:47 AM Prelim Date: 04/23/2023 7:38:17 AM Sign Date: 04/23/2023 7:38:17 AM [facility] NoteSINUS RHYTHM CONSIDER ANTERIOR INFARCT ABNORMAL T, CONSIDER ISCHEMIA, LATERAL LEADS Electronic Signature: LILY JEFFERSON DO 04/23/2023 06:34:03[facility] 03-10-2024 Note [facility] ED Transition Communication Entered On: 04/23/2023 4:12 EDT Performed On: 04/23/2023 4:05 EDT by Estelle Clemons LPN [facility] ED Transition Communication Code Status Order Detail : Full code [facility] Admission Diagnosis : AVR REPAIR, LEFT MCA INFARCT Reason for ED Visit : Patient has had nausea/vomiting with intermittent fever and tachycardia sinceFriday morning. He is having abdominal pain that is radiating to his back. Abdomen is firm and tender to touch. He is requesting that he be sent to ER to be evaluated. Actions Sought By Emergency Department : Evaluate for acute pancreatitis or other GI disorder with diagnostics. Provider Contact Number : [phone] Family Member Notified : Gissell Family Member Contact Information : [phone] Estelle Clemons LPN - 04/23/2023 4:05 EDT (As Of: 04/23/2023 04:13:00 EDT) Allergies (Active) Flonase Estimated Onset Date: Unspecified ; Reactions: Nosebleed ; Created By: THOMAS MATTA; Reaction Status: Active ; Category: Drug ; Substance: Flonase ; Type: Allergy ; Severity: Mild ; Updated By: THOMAS MATTA; Reviewed Date: 04/06/2023 11:30 EST penicillin Estimated Onset Date: Unspecified ; Reactions: Rash ; Created By: THOMAS MATTA; Reaction Status: Active ; Category: Drug ; Substance: penicillin ; Type: Allergy ; Severity: Mild ; Updated By: THOMAS MATTA; Reviewed Date: 04/06/2023 11:30 EST [facility] [id number] Nurse Progress note Pt refused dinner. did eat a cup of cypriot yogurt with meds. continue to have nausea. took Zofran and Percocet. lethargic but awakes easily and follows simple commands. answers questions appropriately. Digitally Signed by THOMAS Quintanilla on 04/21/2023 06:01 PM Leland [id number] Nurse Progress note Nursing GG Entered On: 04/21/2023 11:32 EST Performed On: 04/21/2023 11:31 EST by THOMAS Vela Nursing GG's OT GG Grid Eating : Independent Toilet Transfer : Supervision/Touching Assist Sit to lying : Supervision/Touching Assist Lying to sitting on side of bed : Supervision/Touching Assist Sit to stand : Supervision/Touching Assist THOMAS Vela - 04/21/2023 11:31 EST Digitally Signed by THOMAS Vela on 04/21/2023 11:31 AM [facility] [id number] Nurse Progress note Clinicals faxed to [employer] and fax confirmation was received. Digitally Signed by THOMAS Davenport on 04/21/2023 09:19 AM [place] [id number] Note Subjective Patient tells me he is having a rough morning, states that he is very nauseated and did have episode of vomiting. States he is unsure exactly what is causing this. He does state that his bowels are moving regularly. Denies constipation or diarrhea. Denies pain with palpation to the abdomen. States he thinks it might have been something that he ate. Denies any hypoglycemic reaction. States his breathing is comfortable Objective General: Alert and oriented, no acute distress. Sitting in wheelchair, appears comfortable without pain. Pleasant, calm. Poor eye contact with flat affect. HEENT: No nasal drainage, EOMI, MMM Respiratory: Lungs clear to auscultation nonlabored on room air; no cough or congestion Cardiovascular: Heart rate regular without murmur/tachycardia Edema/Varicosities of Extremities: 2+ edema BLE Gastrointestinal: Abdomen soft/nondistended/nontender; bowel sounds present x 4 Genitourinary: No suprapubic tenderness, CVA tenderness, or bladder distention Neurological: Dysarthria, unchanged VITALS [id number](kg) 04/19 21:00----73--93--45657.6 04/19 17:49----72------22644.6 04/19 17:29----[id number]/11981.6 04/19 14:56----[id number]/68798.2 04/19 09:46----[id number] 24 Hr Tmax: 36.6 at 04/19 07:55 36 Hr Tmax: 36.6 at 04/19 07:55 Vital Signs are the last 5 in the past 48 hours. Weights display the last 5 within 7 days. Initial Wt: 04/10 125.4 kg 276 lb Current Wt: 04/19 126.0 kg 277 lb LABS 04/19 06:54 WBC: 6.5 Hgb: 12.7 L Hct: 37.8 L Platelet: 198 Neutrophil %: 66.5 Glucose Level: 195 H Sodium Level: 137 Potassium Level: 4.8 BUN: 23.0 H Creatinine Lvl (s): 0.95 Medications Active Inpt Meds: albuterol-ipratropium (DuoNeb) Start: 04/07/23 21:00:00 EST, Dose = 3 mL, Soln, Nebulized, QID, 04/07/23 18:25:00 EST amiodarone Start: 04/07/23 18:25:00 EST, Dose = 200 mg, = 1 tab(s), Oral, qDay, 04/07/23 18:25:00 EST aspirin (aspirin 81 mg oral tablet, chewable) Start: 04/11/23 9:00:00 EST, Dose = 81 mg, = 1 tab(s), Oral, Daily, 0, 04/10/23 11:10:00 EST atorvastatin Start: 04/10/23 21:00:00 EST, Dose = 10 mg, = 1 tab(s), Oral, qHS, 04/10/23 11:04:00 EST budesonide (Pulmicort Respules 0.25 mg/2 mL inhalation suspension) Start: 04/07/23 18:26:00 EST, Dose = 0.25 mg, = 2 mL, Inhalation, qDayRT, 1st dose location: [place] [id number], 04/07/23 18:26:00 EST bumetanide (Bumex) Start: 04/18/23 16:00:00 EST, Dose = 2 mg, = 2 tab(s), Oral, BID, 04/18/23 16:00:00 EST docusate Start: 04/17/23 20:00:00 EST, Dose = 100 mg, = 1 cap(s), Oral, BID, 04/17/23 12:44:00 EST esomeprazole (Nexium Ther Int for Protonix tube admin) Start: 04/08/23 7:00:00 EST, Dose = 40 mg, =1 cap(s), Nasogastric, acBreakfast, 0 guaiFENesin Start: 04/10/23 12:00:00 EST, Dose = 200 mg, = 10 mL, Oral, q6h, 0, 04/10/23 11:09:00 EST heparin (heparin 5000 units/mL injection) Start: 04/07/23 22:00:00 EST, Dose = 5,000 unit(s), = 1 mL, Subcutaneous, q8h, 04/07/23 18:26:00 EST insulin glargine (Lantus) Start: 04/08/23 16:00:00 EST, Dose = 16 unit(s), = 0.16 mL, Subcutaneous (INT), acSupper, Rate: 0 mL/hr, Infuse over: 0 minute(s), 0, 04/07/23 18:26:00 EST insulin lispro (HumaLOG) (HumaLOG) Start: 04/08/23 8:00:00 EST, Sliding Scale, Subcutaneous, TIDM, 0, 04/07/23 18:27:00 EST insulin lispro (HumaLOG) (HumaLOG 100 units/mL injectable solution VIAL) Start: 04/08/23 8:00:00 EST, Dose = 5 unit(s), = 0.05 mL, Subcutaneous, TIDM, 0, 04/07/23 18:44:00 EST lidocaine (lidocaine Patch REMOVAL) Start: 04/08/23 21:00:00 EST, Dose = 1 EA, Misc, Miscellaneous,q24h, 0 lidocaine (lidocaine Patch REMOVAL) Start: 04/07/23 18:00:00 EST, Dose = 1 EA, Misc, Miscellaneous,q24h, 0 lidocaine topical Start: 04/09/23 9:00:00 EST, Dose = 2 patch(es), Film, Transdermal, qDay, Apply to: skin lidocaine topical (lidocaine 4% patch) Start: 04/08/23 6:00:00 EST, Dose = 1 patch(es), Film, Topical, qDay, 0, 04/07/23 18:27:00 EST melatonin Start: 04/11/23 21:00:00 EST, Dose = 3 mg, = 1 tab(s), Oral, qHS, 04/11/23 8:12:00 EST metoprolol (metoprolol tartrate 25 mg oral tablet) Start: 04/10/23 17:00:00 EST, Dose = 37.5 mg, = 3 EA, Oral, BID, 0, 04/10/23 11:07:00 EST multivitamin with minerals (Centrum) Start: 04/10/23 12:00:00 EST, Dose = 1 tab(s), Tab, Oral, qDay, 0, 04/10/23 11:03:00 EST nystatin Start: 04/07/23 21:00:00 EST, Dose = 500,000 unit(s), = 5 mL, Oral, QID, 14 day(s), Stop: 04/21/23 17:00:00 EST, 0, 04/07/23 18:27:00 EST ocular lubricant (Tears Naturale ophthalmic solution) Start: 04/07/23 21:00:00 EST, Dose = 1 drop(s), OpSol, Ophthalmic, TID, 0 ocular lubricant (Tears Naturale ophthalmic solution) Start: 04/07/23 21:00:00 EST, Dose = 1 drop(s), OpSol, Eyes, both, qHS, 0 polyethylene glycol 3350 (polyethylene glycol 3350 powder packet) Start: 04/11/23 9:00:00 EST, Dose= 17 gram(s), = 15 mL, Oral, Daily, 0, 04/10/23 11:02:00 EST pregabalin (pregabalin 100 mg oral capsule) Start: 04/10/23 17:00:00 EST, Dose = 100 mg, = 2 cap(s), Oral, BIDM, 0, 04/10/23 11:02:00 EST pregabalin (pregabalin 200 mg oral capsule) Start: 04/10/23 21:00:00 EST, Dose = 200 mg, = 4 cap(s), Oral, qHS, 0, 04/10/23 11:03:00 EST senna Start: 04/10/23 20:00:00 EST, Dose = 8.6 mg, = 1 tab(s), Oral, BID, 0, 04/10/23 11:05:00 EST traZODone Start: 04/12/23 21:00:00 EST, Dose = 25 mg, = 0.5 tab(s), Oral, qHS, 0, 04/12/23 13:14:00EST zinc oxide topical (zinc oxide 20% topical ointment) Start: 04/07/23 21:00:00 EST, 1 application, Topical, BID, Apply to: skin, Ointment, 04/07/23 18:28:00 EST Active PRN Meds: Al hydroxide/Mg hydroxide/simethicone (Maalox) Start: 04/07/23 20:05:00 EST, Dose = 30 mL, Susp, Oral, q6h, PRN, Indigestion, 04/07/23 20:05:00 EST acetaminophen-oxyCODONE (Percocet 325/5) Start: 04/10/23 9:33:00 EST, Dose = 1 tab(s), Tab, Oral, q4h, PRN, Pain, scale 4-10, 04/10/23 9:33:00 EST acetaminophen (Tylenol) Start: 04/07/23 18:25:00 EST, Dose = 650 mg, = 20.31 mL, Nasogastric, q4h, PRN, Pain, 0, 04/07/23 18:25:00 EST albuterol (albuterol aerosol soln Therapeutic Interchange for Ventolin MDI) Start: 04/07/23 18:54:00 EST, Dose = 2.5 mg, = 3 mL, Inhalation, q4hRT, PRN, Wheezing, 0 emollients, topical Start: 04/07/23 18:39:00 EST, Dose = 1 nan, Topical, AsDirected, PRN, Dry skin,Apply to: skin, Cream glucagon (GlucaGen) Start: 04/07/23 20:05:00 EST, Dose = 1 mg, = 1 mL, Intramuscular, AsDirected, PRN, Hypoglycemia, if unresponsive, NO IV ACCESS & blood glucose less than 70mg/dL. If still unresponsive after 2 minutes, REPEAT x1., 04/07/23 20:05:00 EST glucose (Dextrose 50% IV Push) Start: 04/07/23 20:05:00 EST, Dose = 12.5 gram(s), = 25 mL, IV Push,AsDirected, PRN, Hypoglycemia, if unresponsive WITH IV ACCESS & blood glucose less than 70mg/dL. If still unresponsive after 2 minutes, REPEAT x1., 04/07/23 20:05:00 EST glucose Start: 04/07/23 20:05:00 EST, Dose = 16 gram(s), = 4 tab(s), Chewed, AsDirected, PRN, Hypoglycemia, DIABETIC PATIENT if responsive & blood glucose less than 70mg/dL. If blood glucose less than 70mg/dL after 15 minutes, REPEAT x1., 0, 04/07/23 20:0... glycerin (glycerin adult rectal suppository) Start: 04/07/23 20:05:00 EST, Dose = 1 supp, Supp, Rectal, Daily, PRN, Constipation, 04/07/23 20:05:00 EST magnesium hydroxide Start: 04/14/23 12:13:00 EST, Dose = 30 mL, Susp-Oral, Oral, q6h, PRN, Constipation, 0, 04/14/23 12:13:00 EST polyethylene glycol 3350 (Miralax Powder Packet) Start: 04/10/23 11:04:00 EST, Dose = 17 gram(s), =15 mL, Oral, qDay, PRN, Constipation, 04/10/23 11:04:00 EST One Time Meds: None Active IV Meds: None Problems (10) Acute ischemic left MCA stroke (5602386132) Aortic stenosis with bicuspid valve (639495494) Bipolar (650829340) Chronic back pain greater than three months duration (7147635087) COPD (chronic obstructive pulmonary disease) (06470473) HLD (hyperlipidemia) (43611546) HTN (hypertension) ([id number]) Morbid obesity (377226124) Obesity ([id number]) Sleep apnea ([id number]) ASSESSMENT/PLAN: Severe aortic stenosis status post aortic valve replacement as well as repair of the ascending aorta with extensive complicated postoperative course. Follow-up with cardiology scheduled 06/04 Acute ischemic infarct involving the left MCA territory, risk factor modification diabetic and blood pressure control, aspirin plus statin. Follow-up with neurology as scheduled 04/30 New onset atrial fibrillation, patient not currently anticoagulated beyond the aspirin due to petechial hemorrhage noted on repeat CT imaging 04/01, amiodarone added for rate control Aspirin initiated given the acute ischemic CVA Hyperlipidemia on atorvastatin, tolerating without myalgias Hypertension amlodipine, recent increase in Bumex. Due to soft blood pressures amlodipine was discontinued. Monitoring blood pressures closely Acute hypoxic respiratory failure with ongoing abnormal lung sounds, pretty compromised lung exam he does have a history of CHF plus COPD chest x-ray obtained 04/09 revealing compromised exam, chest wall artifact obstructing lower lungs Hyperkalemia during hospitalization, losartan was discontinued, monitoring lab work closely. COPD with mild exacerbation DuoNebs plus budesonide; breathing comfortably on room air Type 2 diabetes on Lantus 16 at supper, Humalog with meals. NPH and sliding scale insulin off, continue with the long-acting Lantus as well as mealtime insulin. Blood sugars stable. Acute on chronic low back pain, pain management notes reviewed patient will continue with the Lyrica. As needed morphine discontinued due to nonuse. Continue with the as needed Percocet. Lidoderm patch to the buttock/low back. Denies any uncontrolled pain. GI prophylaxis Nexium Opioid induced constipation, placed on milligrams twice daily, MiraLAX daily. As needed bowel regimen available effective DVT prophylaxis continue heparin every 8 hours. Oral thrush nystatin, showing slight improvement, continues on this until 04/20. Dysarthria plus dysphagia, speech therapy, NG tube discontinued 04/12. Free Stuart water protocol in place, tolerating Right upper extremity flaccid hemiparesis Right-sided weakness, working with PT and OT EEG showing mild cortical dysfunction in the left hemisphere but no seizures Right upper extremity edema noted to have a superficial venous thrombosis treated supportively Morbid obesity NG tube removed, continues on modified diet Insomnia minimal response to melatonin, continue with trial trazodone 25 nightly, tolerating; will consider going to 50 mg Acute diastolic CHF exacerbation, limited response to the trial of Bumex, this was increased to 2 mg twice daily. We are monitoring with daily weights and close clinical follow-up Fall, 04/15. Denies any injury. Denies any uncontrolled pain. EKG personally reviewed shows sinus rhythm without evidence of A-fib Patient on room air today respiratory status continues to show improvement Mild nausea this morning patient to get a new order for Zofran Diastolic CHF with Bumex increased, lab work scheduled for 04/23 Medications reviewed and up to date This document was transcribed using dictation software and may contain typographical errors. Renae Kirby RN, am scribing for , and in the presence of Dr. Miner. I, Dr. Miner, personally performed the services described in this documentation, as scribed by, Renae GUZMAN in my presence and it is both accurate and complete. Digitally Signed by BENJAMIN MINER DO on 04/23/2023 12:27 PM Leland [id number] Physical medicine and rehab Progress note Rehab Note Chief Complaint: Seeing this patient for reevaluation therapy progress and left MCA infarct, fall History of Present Illness: Seeing this patient for reevaluation therapy progress and left MCA infarct. Patient participates in acute inpatient rehabilitation with PT, OT and ST services. [id number] who presented to the hospital for planned AVR and ascending repair on 03/20. Postsurgery and post extubation patient was found with dysarthria, left-sided weakness and right upper extremity weakness. CT of head obtained showing a late acute to early or subacute infarct in the left MCA territory. On 03/22 patient new diagnosis of atrial fibrillation in which amiodarone was initiated. He was found to have dysphagia in which speech therapy was consulted and Corpak was placed. He is currently on a minced and moist diet with mildly thickened liquids. Repeat CT on 04/01 showing evolving left MCA territory infarct with tiny focus of petechial hemorrhage and transformation. Patient reported right upper extremity weakness in which CT of cervical spine was obtained showing severe right neuroforaminal narrowing at C6-7, neurology was consulted and deemed no surgical intervention needed. Patient didhave edema in right upper extremity which a Doppler was obtained showing SVT and cephalic vein antecubital fossa to the wrist as well as the median cubital vein. Placed on heparin injections for DVT prophylaxis. Past medical history includes obesity, diabetes mellitus type 2, COPD, coronary artery disease, bipolar, hypertension, hyperlipidemia, obstructive sleep apnea, bicuspid aortic stenosis, diastolic CHF. Today patient is in dining room eating breakfast, denies any coughing or choking episodes. Reports he is doing well, states he is looking forward to his home evaluation with therapy today. Denies any uncontrolled pain or discomfort, does have as needed Tylenol available for pain. Discussed with nursing. Medications reviewed. Goal is return home with daughter and home health care services. Tentative discharge date 04/29/2023. Medication List Active Medications Ordered acetaminophen: 650 mg, 20.31 mL, Nasogastric, q4h, PRN: Pain. acetaminophen-oxyCODONE: 1 tab(s), Oral, q4h, PRN: Pain, scale 4-10. albuterol: 2.5 mg, 3 mL, Inhalation, q4hRT, PRN: Wheezing. albuterol-ipratropium: 3 mL, Nebulized, QID. Al hydroxide/Mg hydroxide/simethicone: 30 mL, Oral, q6h, PRN: Indigestion. amiodarone: 200 mg, 1 tab(s), Oral, qDay. aspirin: 81 mg, 1 tab(s), Oral, Daily. atorvastatin: 10 mg, 1 tab(s), Oral, qHS. budesonide: 0.25 mg, 2 mL, Inhalation, qDayRT. bumetanide: 2 mg, 2 tab(s), Oral, BID. docusate: 100 mg, 1 cap(s), Oral, BID. emollients, topical: 1 nan, Topical, AsDirected, PRN: Dry skin. esomeprazole: 40 mg, 1 cap(s), Nasogastric, acBreakfast. glucagon: 1 mg, 1 mL, Intramuscular, AsDirected, PRN: Hypoglycemia. glucose: 12.5 gram(s), 25 mL, IV Push, AsDirected, PRN: Hypoglycemia. glucose: 16 gram(s), 4 tab(s), Chewed, AsDirected, PRN: Hypoglycemia. glycerin: 1 supp, Rectal, Daily, PRN: Constipation. guaiFENesin: 200 mg, 10 mL, Oral, q6h. heparin: 5,000 unit(s), 1 mL, Subcutaneous, q8h. insulin glargine: 16 unit(s), 0.16 mL, 0 mL/hr, Subcutaneous (INT), acSupper. insulin lispro (HumaLOG): 5 unit(s), 0.05 mL, Subcutaneous, TIDM. insulin lispro (HumaLOG): Sliding Scale, Subcutaneous, TIDM. lidocaine (lidocaine Patch REMOVAL): 1 EA, Miscellaneous, q24h. lidocaine (lidocaine Patch REMOVAL): 1 EA, Miscellaneous, q24h. lidocaine topical: 1 patch(es), Topical, qDay. lidocaine topical: 2 patch(es), Transdermal, qDay. magnesium hydroxide: 30 mL, Oral, q6h, PRN: Constipation. melatonin: 3 mg, 1 tab(s), Oral, qHS. metoprolol: 37.5 mg, 3 EA, Oral, BID. multivitamin with minerals: 1 tab(s), Oral, qDay. nystatin: 500,000 unit(s), 5 mL, Oral, QID. ocular lubricant: 1 drop(s), Eyes, both, qHS. ocular lubricant: 1 drop(s), Ophthalmic, TID. polyethylene glycol 3350: 17 gram(s), 15 mL, Oral, Daily. polyethylene glycol 3350: 17 gram(s), 15 mL, Oral, qDay, PRN: Constipation. pregabalin: 100 mg, 2 cap(s), Oral, BIDM. pregabalin: 200 mg, 4 cap(s), Oral, qHS. senna: 8.6 mg, 1 tab(s), Oral, BID. traZODone: 25 mg, 0.5 tab(s), Oral, qHS. zinc oxide topical: 1 application, Topical, BID. Documented acetaminophen: 650 mg, Nasogastric, q4h, PRN: as needed for pain, 0 Refill(s). albuterol: 2 puff(s), Inhalation, q4h, PRN: as needed for wheezing, 8.5 gram(s), 0 Refill(s). albuterol-ipratropium: 3 mL, Nebulized, QID, 0 Refill(s). amiodarone: 200 mg, 1 tab(s), Nasogastric, qDay, 30 tab(s), 0 Refill(s). amLODIPine: 5 mg, 1 tab(s), Nasogastric, qDay, 30 tab(s), 0 Refill(s). ammonium lactate topical: 1 application, Topical, PRN: as needed dry skin, 0 Refill(s). aspirin: 81 mg, 1 tab(s), Nasogastric, Daily, 0 Refill(s). atorvastatin: 10 mg, Nasogastric, qHS, 0 Refill(s). budesonide-formoterol: 2 puff(s), Inhalation, BID, 0 Refill(s). docusate: 10 mL, Nasogastric, BID, 0 Refill(s). furosemide: 40 mg, Nasogastric, BID, 0 Refill(s). guaiFENesin: 10 mL, Nasogastric, q6h, 120 mL, 0 Refill(s). heparin: 5,000 unit(s), Subcutaneous, q8h, mL, 0 Refill(s). insulin glargine: 16 unit(s), Subcutaneous, acSupper, 0 Refill(s). insulin isophane (NPH): 38 unit(s), Subcutaneous, Daily, 0 Refill(s). insulin lispro (HumaLOG): 5 unit(s), Subcutaneous, TIDM, 1 EA, 0 Refill(s). insulin lispro (HumaLOG): Sliding Scale, Subcutaneous, TIDM, 10 mL, 0 Refill(s). lidocaine topical: 1 patch(es), Topical, qDay, 0 Refill(s). lidocaine topical: 2 patch(es), Topical, qDay, 0 Refill(s). magnesium hydroxide: 30 mL, Nasogastric, q6h, PRN: as needed for constipation, 0 Refill(s). metoprolol: 37.5 mg, 1 tab(s), Nasogastric, BID, 180 tab(s), 0 Refill(s). morphine: 5 mg, 2.5 mL, Nasogastric, q4h, PRN: as needed for pain, 0 Refill(s). multivitamin with minerals: 1 tab(s), Nasogastric, qDay, 0 Refill(s). nystatin: 500,000 unit(s), 5 mL, Oral, QID, for 14 day(s), 140 mL, 0 Refill(s). ocular lubricant: 1 drop(s), Eyes, both, TID, 0 Refill(s). ocular lubricant: 1 drop, Eyes, both, qHS, 0 Refill(s). pantoprazole: 40 mg, Nasogastric, qDay, 0 Refill(s). polyethylene glycol 3350: 17 gram(s), Nasogastric, Daily, 0 Refill(s). pregabalin: 200 mg, 1 cap(s), Nasogastric, qHS, 0 Refill(s). pregabalin: 100 mg, 1 cap(s), Nasogastric, BID, 60 cap(s), 0 Refill(s). senna: 8.8 mg, 5 mL, Nasogastric, BID, 0 Refill(s). zinc oxide topical: 1 application, Topical, BID, 0 Refill(s). Medications Inactivated in the Last 72 Hours amLODIPine: 5 mg, 1 tab(s), Oral, qDay. bumetanide: 1.5 mg, 3 tab(s), Oral, BID. bumetanide: 1.5 mg, 3 tab(s), Oral, BID. bumetanide: 0.5 mg, 1 tab(s), Oral, now. docusate: 100 mg, 10 mL, Oral, BID. lidocaine topical: Miscellaneous, Once. pregabalin: Miscellaneous, Once. pregabalin: Miscellaneous, Once. Social history: Social support: Lives with daughter Home set-up: Multilevel home. First-floor bedroom, bathroom, laundry Barriers to discharge: Time since onset, safety warnings, past medical history Review of Systems: General: Appetite is adequate. Modified diet. Respiratory: Denies shortness of breath, denies cough. O2 via nasal cannula Cardiovascular: Denies chest pain, denies palpitations Gastrointestinal: Denies nausea, vomiting, diarrhea constipation Genitourinary: Denies suprapubic pain or tenderness, no dysuria Musculoskeletal: No uncontrolled pain. Reports low back pain Psychiatric: No reported change in cognition Vitals Signs(Last 24 hrs)__Last Charted Minimum Maximum Heart Rate76(APR 18 16:02)76(APR 18 09:25)76(APR 18 09:25) TEC064(APR 19 01:33)112(APR 18 09:05)128(APR 19 01:33) DBP70(APR 19 01:33)60(APR 18 09:05)70(APR 19 01:33) Physical Exam: General: No acute distress. Appears comfortable sitting in dining room eating breakfast Respiratory: Lungs are clear to auscultation. Respirations unlabored on room air. No conversationaldyspnea, cough or congestion Cardiovascular: Regular rate and rhythm. No murmur. No tachycardia. No bradycardia. Gastrointestinal: Abdomen is soft nontender nondistended. Bowel sounds normal x4. Arterial: 1/4 distal pulses bilateral lower extremities Edema: 2/4 edema bilateral extremities. No calf tenderness Musculoskeletal: Mild polyarthritis Spinal Curvatures: Slight increased thoracic kyphosis. No spinal or paraspinal tenderness Weight bearing status/transfers/ADLs: Weightbearing as tolerated. Ambulated 50 feet with gait belt and bariatric walker. Touch assist to wheel 50 feet with 2 turns. Moderate assist for toilet transfer. Moderate assist for sit to stand. Ongoing assessment of swallowing function, currently on a minced and moist diet with mildly thickened liquids. Skin: Thin and dry. Unstageable pressure ulcer to coccyx. Skin tear right arm. [place] sling In place right upper extremity Neurological: Cranial nerves intact Decreased sensation distally Right-sided facial weakness Dysarthric speech 4+/5 left upper extremity strength 2 - /5 right upper extremity strength with increased tone 5/5 left lower extremity strength 4 -/5 right lower extremity strength Decreased right hand grasp Normal left hand grasp Decreased left shoulder range of motion Absent right shoulder range of motion 2/4 left upper and lower extremity reflexes 3/4 right upper and lower extremity reflexes Psychiatric: A&O. Pleasant and cooperative. Flat affect. Assessment: Status post AVR ascending repair left MCA infarct with right hemiparesis. Unstageable coccygeal ulcer. Dysarthria. Chronic low back pain. Obesity. Plan: Continue acute rehabilitation physical occupational and speech therapy services. Minced moistdiet with mildly thick liquids. Has progressed 50 feet moderate assist with therapy. Does have homeevaluation today to determine any barriers and for transition back to community setting. Resector modification in place presently on aspirin, statin, blood pressure control, diabetic control. Previously living with daughter in multilevel dwelling with first-floor bed and bath. Plan discharge date at this time 04/28 with home health care services. Risks/benefits of meds, treatments considered. Therapy notes reviewed. Discussed with staff. PMH/ reviewed and unchanged Note: This dictation was created with assistance of voice recognition software. Phonic and/or minorgrammatical errors may exist. Medications reviewed and are up to date Wilder Kirby LPN, am scribing for, and in the presence of Allison Johns , personally performed the services described in this documentation, as described by Wilder Whitmore LPN in my presence and it is both accurate and complete. Digitally Signed by ALLISON KHANNA on 04/20/2023 09:32 PM Leland [id number] Note Subjective Patient relates he is doing well today. He states that his breathing is comfortable on room air, SpO2 90-95%. States that he slept all night without the oxygen on as well. States that he is doing well this morning. He states he got a good night sleep. Reports good urine output with the increase in the Bumex. Denies dizziness or lightheadedness. He does state his appetite has been good and he has been eating well Objective General: Alert, oriented NAD. Appears to be comfortable sitting in wheelchair, no signs of acute pain. He is calm and cooperative, interactive. Good eye contact, flat affect HEENT: No nasal drainage, EOMI, MMM Respiratory: Lungs clear, diminished nonlabored on room air; no cough or congestion Cardiovascular: HRR; no tachycardia; no murmur Edema/Varicosities of Extremities: 1+ edema bilateral thighs, 2 3+ edema bilateral lower extremities Gastrointestinal: Abdomen soft/nondistended/nontender with bowel sounds present x 4 Genitourinary: No suprapubic tenderness, CVA tenderness, or bladder distention Neurological: Dysarthria, unchanged VITALS [id number](kg) 04/19 01:3336--[id number]/10929.6 04/18 22:43----[id number]/51082.6 04/18 22:41----[id number]/05354.6 04/18 20:4436.5--[id number]/34022.2 04/18 17:29----[id number]/23200.6 24 Hr Tmax: 36.5 at 04/18 20:44 36 Hr Tmax: 36.5 at 04/18 20:44 Vital Signs are the last 5 in the past 48 hours. Weights display the last 5 within 7 days. Initial Wt: 04/10 125.4 kg 276 lb Current Wt: 04/18 125.4 kg 276 lb LABS No 36 Hour Lab Data Medications Active Inpt Meds: albuterol-ipratropium (DuoNeb) Start: 04/07/23 21:00:00 EST, Dose = 3 mL, Soln, Nebulized, QID, 04/07/23 18:25:00 EST amiodarone Start: 04/07/23 18:25:00 EST, Dose = 200 mg, = 1 tab(s), Oral, qDay, 04/07/23 18:25:00 EST aspirin (aspirin 81 mg oral tablet, chewable) Start: 04/11/23 9:00:00 EST, Dose = 81 mg, = 1 tab(s), Oral, Daily, 0, 04/10/23 11:10:00 EST atorvastatin Start: 04/10/23 21:00:00 EST, Dose = 10 mg, = 1 tab(s), Oral, qHS, 04/10/23 11:04:00 EST budesonide (Pulmicort Respules 0.25 mg/2 mL inhalation suspension) Start: 04/07/23 18:26:00 EST, Dose = 0.25 mg, = 2 mL, Inhalation, qDayRT, 1st dose location: [place] [id number], 04/07/23 18:26:00 EST bumetanide (Bumex) Start: 04/18/23 16:00:00 EST, Dose = 2 mg, = 2 tab(s), Oral, BID, 04/18/23 16:00:00 EST docusate Start: 04/17/23 20:00:00 EST, Dose = 100 mg, = 1 cap(s), Oral, BID, 04/17/23 12:44:00 EST esomeprazole (Nexium Ther Int for Protonix tube admin) Start: 04/08/23 7:00:00 EST, Dose = 40 mg, =1 cap(s), Nasogastric, acBreakfast, 0 guaiFENesin Start: 04/10/23 12:00:00 EST, Dose = 200 mg, = 10 mL, Oral, q6h, 0, 04/10/23 11:09:00 EST heparin (heparin 5000 units/mL injection) Start: 04/07/23 22:00:00 EST, Dose = 5,000 unit(s), = 1 mL, Subcutaneous, q8h, 04/07/23 18:26:00 EST insulin glargine (Lantus) Start: 04/08/23 16:00:00 EST, Dose = 16 unit(s), = 0.16 mL, Subcutaneous (INT), acSupper, Rate: 0 mL/hr, Infuse over: 0 minute(s), 0, 04/07/23 18:26:00 EST insulin lispro (HumaLOG) (HumaLOG) Start: 04/08/23 8:00:00 EST, Sliding Scale, Subcutaneous, TIDM, 0, 04/07/23 18:27:00 EST insulin lispro (HumaLOG) (HumaLOG 100 units/mL injectable solution VIAL) Start: 04/08/23 8:00:00 EST, Dose = 5 unit(s), = 0.05 mL, Subcutaneous, TIDM, 0, 04/07/23 18:44:00 EST lidocaine (lidocaine Patch REMOVAL) Start: 04/08/23 21:00:00 EST, Dose = 1 EA, Misc, Miscellaneous,q24h, 0 lidocaine (lidocaine Patch REMOVAL) Start: 04/07/23 18:00:00 EST, Dose = 1 EA, Misc, Miscellaneous,q24h, 0 lidocaine topical Start: 04/09/23 9:00:00 EST, Dose = 2 patch(es), Film, Transdermal, qDay, Apply to: skin lidocaine topical (lidocaine 4% patch) Start: 04/08/23 6:00:00 EST, Dose = 1 patch(es), Film, Topical, qDay, 0, 04/07/23 18:27:00 EST melatonin Start: 04/11/23 21:00:00 EST, Dose = 3 mg, = 1 tab(s), Oral, qHS, 04/11/23 8:12:00 EST metoprolol (metoprolol tartrate 25 mg oral tablet) Start: 04/10/23 17:00:00 EST, Dose = 37.5 mg, = 3 EA, Oral, BID, 0, 04/10/23 11:07:00 EST multivitamin with minerals (Centrum) Start: 04/10/23 12:00:00 EST, Dose = 1 tab(s), Tab, Oral, qDay, 0, 04/10/23 11:03:00 EST nystatin Start: 04/07/23 21:00:00 EST, Dose = 500,000 unit(s), = 5 mL, Oral, QID, 14 day(s), Stop: 04/21/23 17:00:00 EST, 0, 04/07/23 18:27:00 EST ocular lubricant (Tears Naturale ophthalmic solution) Start: 04/07/23 21:00:00 EST, Dose = 1 drop(s), OpSol, Ophthalmic, TID, 0 ocular lubricant (Tears Naturale ophthalmic solution) Start: 04/07/23 21:00:00 EST, Dose = 1 drop(s), OpSol, Eyes, both, qHS, 0 polyethylene glycol 3350 (polyethylene glycol 3350 powder packet) Start: 04/11/23 9:00:00 EST, Dose= 17 gram(s), = 15 mL, Oral, Daily, 0, 04/10/23 11:02:00 EST pregabalin (pregabalin 100 mg oral capsule) Start: 04/10/23 17:00:00 EST, Dose = 100 mg, = 2 cap(s), Oral, BIDM, 0, 04/10/23 11:02:00 EST pregabalin (pregabalin 200 mg oral capsule) Start: 04/10/23 21:00:00 EST, Dose = 200 mg, = 4 cap(s), Oral, qHS, 0, 04/10/23 11:03:00 EST senna Start: 04/10/23 20:00:00 EST, Dose = 8.6 mg, = 1 tab(s), Oral, BID, 0, 04/10/23 11:05:00 EST traZODone Start: 04/12/23 21:00:00 EST, Dose = 25 mg, = 0.5 tab(s), Oral, qHS, 0, 04/12/23 13:14:00EST zinc oxide topical (zinc oxide 20% topical ointment) Start: 04/07/23 21:00:00 EST, 1 application, Topical, BID, Apply to: skin, Ointment, 04/07/23 18:28:00 EST Active PRN Meds: Al hydroxide/Mg hydroxide/simethicone (Maalox) Start: 04/07/23 20:05:00 EST, Dose = 30 mL, Susp, Oral, q6h, PRN, Indigestion, 04/07/23 20:05:00 EST acetaminophen-oxyCODONE (Percocet 325/5) Start: 04/10/23 9:33:00 EST, Dose = 1 tab(s), Tab, Oral, q4h, PRN, Pain, scale 4-10, 04/10/23 9:33:00 EST acetaminophen (Tylenol) Start: 04/07/23 18:25:00 EST, Dose = 650 mg, = 20.31 mL, Nasogastric, q4h, PRN, Pain, 0, 04/07/23 18:25:00 EST albuterol (albuterol aerosol soln Therapeutic Interchange for Ventolin MDI) Start: 04/07/23 18:54:00 EST, Dose = 2.5 mg, = 3 mL, Inhalation, q4hRT, PRN, Wheezing, 0 emollients, topical Start: 04/07/23 18:39:00 EST, Dose = 1 nan, Topical, AsDirected, PRN, Dry skin,Apply to: skin, Cream glucagon (GlucaGen) Start: 04/07/23 20:05:00 EST, Dose = 1 mg, = 1 mL, Intramuscular, AsDirected, PRN, Hypoglycemia, if unresponsive, NO IV ACCESS & blood glucose less than 70mg/dL. If still unresponsive after 2 minutes, REPEAT x1., 04/07/23 20:05:00 EST glucose (Dextrose 50% IV Push) Start: 04/07/23 20:05:00 EST, Dose = 12.5 gram(s), = 25 mL, IV Push,AsDirected, PRN, Hypoglycemia, if unresponsive WITH IV ACCESS & blood glucose less than 70mg/dL. If still unresponsive after 2 minutes, REPEAT x1., 04/07/23 20:05:00 EST glucose Start: 04/07/23 20:05:00 EST, Dose = 16 gram(s), = 4 tab(s), Chewed, AsDirected, PRN, Hypoglycemia, DIABETIC PATIENT if responsive & blood glucose less than 70mg/dL. If blood glucose less than 70mg/dL after 15 minutes, REPEAT x1., 0, 04/07/23 20:0... glycerin (glycerin adult rectal suppository) Start: 04/07/23 20:05:00 EST, Dose = 1 supp, Supp, Rectal, Daily, PRN, Constipation, 04/07/23 20:05:00 EST magnesium hydroxide Start: 04/14/23 12:13:00 EST, Dose = 30 mL, Susp-Oral, Oral, q6h, PRN, Constipation, 0, 04/14/23 12:13:00 EST polyethylene glycol 3350 (Miralax Powder Packet) Start: 04/10/23 11:04:00 EST, Dose = 17 gram(s), =15 mL, Oral, qDay, PRN, Constipation, 04/10/23 11:04:00 EST One Time Meds: None Active IV Meds: None Problems (10) Acute ischemic left MCA stroke (7045319429) Aortic stenosis with bicuspid valve (744426443) Bipolar (715240921) Chronic back pain greater than three months duration (4759813825) COPD (chronic obstructive pulmonary disease) (73541902) HLD (hyperlipidemia) (59179386) HTN (hypertension) ([id number]) Morbid obesity (744194836) Obesity ([id number]) Sleep apnea ([id number]) ASSESSMENT/PLAN: Severe aortic stenosis status post aortic valve replacement as well as repair of the ascending aorta with extensive complicated postoperative course. Follow-up with cardiology scheduled 06/04 Acute ischemic infarct involving the left MCA territory, risk factor modification diabetic and blood pressure control, aspirin plus statin. Follow-up with neurology as scheduled 04/30 New onset atrial fibrillation, patient not currently anticoagulated beyond the aspirin due to petechial hemorrhage noted on repeat CT imaging 04/01, amiodarone added for rate control Aspirin initiated given the acute ischemic CVA Hyperlipidemia on atorvastatin, tolerating without myalgias Hypertension amlodipine, recent increase in Bumex. Due to soft blood pressures amlodipine was discontinued. Monitoring blood pressures closely Acute hypoxic respiratory failure with ongoing abnormal lung sounds, pretty compromised lung exam he does have a history of CHF plus COPD chest x-ray obtained 04/09 revealing compromised exam, chest wall artifact obstructing lower lungs Hyperkalemia during hospitalization, losartan was discontinued, monitoring lab work closely. COPD with mild exacerbation DuoNebs plus budesonide; breathing comfortably on room air Type 2 diabetes on Lantus 16 at supper, Humalog with meals and sliding scale. NPH insulin off, continue with the long-acting Lantus as well as mealtime insulin. Blood sugars currently stable. Acute on chronic low back pain, pain management notes reviewed patient will continue with the Lyrica. As needed morphine discontinued due to nonuse. Continue with the as needed Percocet. Lidoderm patch to the buttock/low back. Denies any uncontrolled pain. GI prophylaxis Nexium Opioid induced constipation, placed on milligrams twice daily, MiraLAX daily. As needed bowel regimen available effective DVT prophylaxis continue heparin every 8 hours. Oral thrush nystatin, showing slight improvement, continues on this until 04/20. Dysarthria plus dysphagia, speech therapy, NG tube discontinued 04/12. Free [place] water protocol in place, tolerating Right upper extremity flaccid hemiparesis Right-sided weakness, working with PT and OT EEG showing mild cortical dysfunction in the left hemisphere but no seizures Right upper extremity edema noted to have a superficial venous thrombosis treated supportively Morbid obesity NG tube removed, continues on minced and moist diet Insomnia minimal response to melatonin, continue with trial trazodone 25 nightly, tolerating; will consider going to 50 mg Acute diastolic CHF exacerbation, limited response to the trial of Bumex, this was increased to 2 mg twice daily. We are monitoring with daily weights and close clinical follow-up Fall, 04/15. Denies any injury. Denies any uncontrolled pain. EKG personally reviewed shows sinus rhythm without evidence of A-fib Patient on room air today respiratory status continues to show improvement Blood sugars seem to be stabilizing and recommending discontinuation of the sliding scale today we will continue just with the routine insulin Lab work pending for this morning Medications reviewed and up to date This document was transcribed using dictation software and may contain typographical errors. Renae Kirby RN, am scribing for , and in the presence of Dr. Miner. I, Dr. Miner, personally performed the services described in this documentation, as scribed by, Renae GUZMAN in my presence and it is both accurate and complete. Digitally Signed by BENJAMIN MINER DO on 04/23/2023 12:34 PM [facility] [id number] Physical medicine and rehab Progress note Rehab Note Chief Complaint: Seeing this patient for reevaluation therapy progress and left MCA infarct, fall History of Present Illness: Seeing this patient for reevaluation therapy progress and left MCA infarct. Patient participates in acute inpatient rehabilitation with PT, OT and ST services. [id number] who presented to the hospital for planned AVR and ascending repair on 03/20. Postsurgery and post extubation patient was found with dysarthria, left-sided weakness and right upper extremity weakness. CT of head obtained showing a late acute to early or subacute infarct in the left MCA territory. On 03/22 patient new diagnosis of atrial fibrillation in which amiodarone was initiated. He was found to have dysphagia in which speech therapy was consulted and Corpak was placed. He is currently on a minced and moist diet with mildly thickened liquids. Repeat CT on 04/01 showing evolving left MCA territory infarct with tiny focus of petechial hemorrhage and transformation. Patient reported right upper extremity weakness in which CT of cervical spine was obtained showing severe right neuroforaminal narrowing at C6-7, neurology was consulted and deemed no surgical intervention needed. Patient didhave edema in right upper extremity which a Doppler was obtained showing SVT and cephalic vein antecubital fossa to the wrist as well as the median cubital vein. Placed on heparin injections for DVT prophylaxis. Past medical history includes obesity, diabetes mellitus type 2, COPD, coronary artery disease, bipolar, hypertension, hyperlipidemia, obstructive sleep apnea, bicuspid aortic stenosis, diastolic CHF. Today patient is sitting in chair watching TV, reports he is doing okay, nurse reports he did have a fall last night with no injuries, denies any injuries or uncontrolled pain, does endorse complaints of chronic back pain in which she does have as needed Tylenol and Percocet available which she is utilizing with good effect. Discussed with nursing. Medications reviewed. Goal is return home with daughter and home health care services. Tentative discharge date 04/29/2023. Medication List Active Medications Ordered acetaminophen: 650 mg, 20.31 mL, Nasogastric, q4h, PRN: Pain. acetaminophen-oxyCODONE: 1 tab(s), Oral, q4h, PRN: Pain, scale 4-10. albuterol: 2.5 mg, 3 mL, Inhalation, q4hRT, PRN: Wheezing. albuterol-ipratropium: 3 mL, Nebulized, QID. Al hydroxide/Mg hydroxide/simethicone: 30 mL, Oral, q6h, PRN: Indigestion. amiodarone: 200 mg, 1 tab(s), Oral, qDay. amLODIPine: 5 mg, 1 tab(s), Oral, qDay. aspirin: 81 mg, 1 tab(s), Oral, Daily. atorvastatin: 10 mg, 1 tab(s), Oral, qHS. budesonide: 0.25 mg, 2 mL, Inhalation, qDayRT. bumetanide: 2 mg, 2 tab(s), Oral, BID. docusate: 100 mg, 1 cap(s), Oral, BID. emollients, topical: 1 nan, Topical, AsDirected, PRN: Dry skin. esomeprazole: 40 mg, 1 cap(s), Nasogastric, acBreakfast. glucagon: 1 mg, 1 mL, Intramuscular, AsDirected, PRN: Hypoglycemia. glucose: 12.5 gram(s), 25 mL, IV Push, AsDirected, PRN: Hypoglycemia. glucose: 16 gram(s), 4 tab(s), Chewed, AsDirected, PRN: Hypoglycemia. glycerin: 1 supp, Rectal, Daily, PRN: Constipation. guaiFENesin: 200 mg, 10 mL, Oral, q6h. heparin: 5,000 unit(s), 1 mL, Subcutaneous, q8h. insulin glargine: 16 unit(s), 0.16 mL, 0 mL/hr, Subcutaneous (INT), acSupper. insulin lispro (HumaLOG): 5 unit(s), 0.05 mL, Subcutaneous, TIDM. insulin lispro (HumaLOG): Sliding Scale, Subcutaneous, TIDM. lidocaine (lidocaine Patch REMOVAL): 1 EA, Miscellaneous, q24h. lidocaine (lidocaine Patch REMOVAL): 1 EA, Miscellaneous, q24h. lidocaine topical: 1 patch(es), Topical, qDay. lidocaine topical: 2 patch(es), Transdermal, qDay. magnesium hydroxide: 30 mL, Oral, q6h, PRN: Constipation. melatonin: 3 mg, 1 tab(s), Oral, qHS. metoprolol: 37.5 mg, 3 EA, Oral, BID. multivitamin with minerals: 1 tab(s), Oral, qDay. nystatin: 500,000 unit(s), 5 mL, Oral, QID. ocular lubricant: 1 drop(s), Eyes, both, qHS. ocular lubricant: 1 drop(s), Ophthalmic, TID. polyethylene glycol 3350: 17 gram(s), 15 mL, Oral, Daily. polyethylene glycol 3350: 17 gram(s), 15 mL, Oral, qDay, PRN: Constipation. pregabalin: 100 mg, 2 cap(s), Oral, BIDM. pregabalin: 200 mg, 4 cap(s), Oral, qHS. senna: 8.6 mg, 1 tab(s), Oral, BID. traZODone: 25 mg, 0.5 tab(s), Oral, qHS. zinc oxide topical: 1 application, Topical, BID. Documented acetaminophen: 650 mg, Nasogastric, q4h, PRN: as needed for pain, 0 Refill(s). albuterol: 2 puff(s), Inhalation, q4h, PRN: as needed for wheezing, 8.5 gram(s), 0 Refill(s). albuterol-ipratropium: 3 mL, Nebulized, QID, 0 Refill(s). amiodarone: 200 mg, 1 tab(s), Nasogastric, qDay, 30 tab(s), 0 Refill(s). amLODIPine: 5 mg, 1 tab(s), Nasogastric, qDay, 30 tab(s), 0 Refill(s). ammonium lactate topical: 1 application, Topical, PRN: as needed dry skin, 0 Refill(s). aspirin: 81 mg, 1 tab(s), Nasogastric, Daily, 0 Refill(s). atorvastatin: 10 mg, Nasogastric, qHS, 0 Refill(s). budesonide-formoterol: 2 puff(s), Inhalation, BID, 0 Refill(s). docusate: 10 mL, Nasogastric, BID, 0 Refill(s). furosemide: 40 mg, Nasogastric, BID, 0 Refill(s). guaiFENesin: 10 mL, Nasogastric, q6h, 120 mL, 0 Refill(s). heparin: 5,000 unit(s), Subcutaneous, q8h, mL, 0 Refill(s). insulin glargine: 16 unit(s), Subcutaneous, acSupper, 0 Refill(s). insulin isophane (NPH): 38 unit(s), Subcutaneous, Daily, 0 Refill(s). insulin lispro (HumaLOG): 5 unit(s), Subcutaneous, TIDM, 1 EA, 0 Refill(s). insulin lispro (HumaLOG): Sliding Scale, Subcutaneous, TIDM, 10 mL, 0 Refill(s). lidocaine topical: 1 patch(es), Topical, qDay, 0 Refill(s). lidocaine topical: 2 patch(es), Topical, qDay, 0 Refill(s). magnesium hydroxide: 30 mL, Nasogastric, q6h, PRN: as needed for constipation, 0 Refill(s). metoprolol: 37.5 mg, 1 tab(s), Nasogastric, BID, 180 tab(s), 0 Refill(s). morphine: 5 mg, 2.5 mL, Nasogastric, q4h, PRN: as needed for pain, 0 Refill(s). multivitamin with minerals: 1 tab(s), Nasogastric, qDay, 0 Refill(s). nystatin: 500,000 unit(s), 5 mL, Oral, QID, for 14 day(s), 140 mL, 0 Refill(s). ocular lubricant: 1 drop(s), Eyes, both, TID, 0 Refill(s). ocular lubricant: 1 drop, Eyes, both, qHS, 0 Refill(s). pantoprazole: 40 mg, Nasogastric, qDay, 0 Refill(s). polyethylene glycol 3350: 17 gram(s), Nasogastric, Daily, 0 Refill(s). pregabalin: 200 mg, 1 cap(s), Nasogastric, qHS, 0 Refill(s). pregabalin: 100 mg, 1 cap(s), Nasogastric, BID, 60 cap(s), 0 Refill(s). senna: 8.8 mg, 5 mL, Nasogastric, BID, 0 Refill(s). zinc oxide topical: 1 application, Topical, BID, 0 Refill(s). Medications Inactivated in the Last 72 Hours bumetanide: 1.5 mg, 3 tab(s), Oral, BID. bumetanide: 1.5 mg, 3 tab(s), Oral, BID. bumetanide: 0.5 mg, 1 tab(s), Oral, now. docusate: 100 mg, 10 mL, Oral, BID. lidocaine topical: Miscellaneous, Once. lidocaine topical: Miscellaneous, Once. metoprolol: Miscellaneous, Once. Social history: Social support: Lives with daughter Home set-up: Multilevel home. First-floor bedroom, bathroom, laundry Barriers to discharge: Time since onset, safety warnings, past medical history Review of Systems: General: No fever or chills Respiratory: Denies shortness of breath Cardiovascular: Denies chest pain Musculoskeletal: No worsening pain, generalized weakness Psychiatric: No reported cognitive changes Vitals Signs(Last 24 hrs)__Last Charted Minimum Maximum Heart Rate76(APR 17 16:18)74(APR 17 09:18)76(APR 17 16:18) AGR529(APR 18 00:00)100(APR 17 16:18)120(APR 17:18) DBP62(APR 18 00:00)L 56(APR 17 16:18)64(APR 17:18) Physical Exam: General: Appears chronically ill, no acute distress Respiratory: Clear decreased at bases. O2 per nasal cannula. Cardiovascular: No murmur noted Arterial: Good distal pulses Edema: 1 out of 4 pretibial edema bilaterally. No calf tenderness. Musculoskeletal: 4/5 left lower extremity strength 2/5 right lower extremity strength Normal neon sign installer strength left. 0 right Normal shoulder range of motion left. Absent right Increased thoracic kyphosis Osteoarthritis Weight bearing status: As tolerated Skin: Intact Neurological: Cranial nerves intact. Decreased distal sensation. Psychiatric: Alert and cooperative Assessment and plan: Right body stroke. Status post AVR ascending repair, diastolic heart failure, diabetes type 2, obesity, hypertension, history bipolar disorder, COPD Plan: Continue acute rehabilitation with physical and occupational therapy services. Bumex per medical service. Wean oxygen as tolerated. Encourage incentive spirometer. NDT with attempted weightbearing through right side. Humalog and diabetic diet. Percocet or Tylenol for pain. Wean oxygen as pratima ated. Family instruction ongoing. Goal remains discharge home with family and home care services with estimated discharge date April 28. Discussed with patient and therapy team PMH/SH reviewed and unchanged. Risks/benefits of meds, treatments considered. Therapy notes reviewed. Discussed with staff. Note: This dictation was created with assistance of voice recognition software. Phonic and/or minorgrammatical errors may exist. Medications reviewed and are up to date Gaudencio Kirby RN, am scribing for, and in the presence of Dr. Jone AGUILERA. IDr. Jone DO , personally performed the services described in this documentation, as described by Gaudencio Moreira RN in my presence and it is both accurate and complete. Digitally Signed by MALIA BECERRIL DO on 04/19/2023 02:51 PM [id number] Physical [facility] and rehab Progress note Rehab Note Chief Complaint: Seeing this patient for reevaluation therapy progress and left MCA infarct, fall History of Present Illness: Seeing this patient for reevaluation therapy progress and left MCA infarct. Patient participates in acute inpatient rehabilitation with PT, OT and ST services. [id number] who presented to the hospital for planned AVR and ascending repair on 03/20. Postsurgery and post extubation patient was found with dysarthria, left-sided weakness and right upper extremity weakness. CT of head obtained showing a late acute to early or subacute infarct in the left MCA territory. On 03/22 patient new diagnosis of atrial fibrillation in which amiodarone was initiated. He was found to have dysphagia in which speech therapy was consulted and Corpak was placed. He is currently on a minced and moist diet with mildly thickened liquids. Repeat CT on 04/01 showing evolving left MCA territory infarct with tiny focus of petechial hemorrhage and transformation. Patient reported right upper extremity weakness in which CT of cervical spine was obtained showing severe right neuroforaminal narrowing at C6-7, neurology was consulted and deemed no surgical intervention needed. Patient didhave edema in right upper extremity which a Doppler was obtained showing SVT and cephalic vein antecubital fossa to the wrist as well as the median cubital vein. Placed on heparin injections for DVT prophylaxis. Past medical history includes obesity, diabetes mellitus type 2, COPD, coronary artery disease, bipolar, hypertension, hyperlipidemia, obstructive sleep apnea, bicuspid aortic stenosis, diastolic CHF. Today patient is sitting in chair watching TV, reports he is doing okay, nurse reports he did have a fall last night with no injuries, denies any injuries or uncontrolled pain, does endorse complaints of chronic back pain in which she does have as needed Tylenol and Percocet available which she is utilizing with good effect. Discussed with nursing. Medications reviewed. Goal is return home with daughter and home health care services. Tentative discharge date 04/29/2023. Medication List Active Medications Ordered acetaminophen: 650 mg, 20.31 mL, Nasogastric, q4h, PRN: Pain. acetaminophen-oxyCODONE: 1 tab(s), Oral, q4h, PRN: Pain, scale 4-10. albuterol: 2.5 mg, 3 mL, Inhalation, q4hRT, PRN: Wheezing. albuterol-ipratropium: 3 mL, Nebulized, QID. Al hydroxide/Mg hydroxide/simethicone: 30 mL, Oral, q6h, PRN: Indigestion. amiodarone: 200 mg, 1 tab(s), Oral, qDay. amLODIPine: 5 mg, 1 tab(s), Oral, qDay. aspirin: 81 mg, 1 tab(s), Oral, Daily. atorvastatin: 10 mg, 1 tab(s), Oral, qHS. budesonide: 0.25 mg, 2 mL, Inhalation, qDayRT. bumetanide: 2 mg, 2 tab(s), Oral, BID. docusate: 100 mg, 1 cap(s), Oral, BID. emollients, topical: 1 nan, Topical, AsDirected, PRN: Dry skin. esomeprazole: 40 mg, 1 cap(s), Nasogastric, acBreakfast. glucagon: 1 mg, 1 mL, Intramuscular, AsDirected, PRN: Hypoglycemia. glucose: 12.5 gram(s), 25 mL, IV Push, AsDirected, PRN: Hypoglycemia. glucose: 16 gram(s), 4 tab(s), Chewed, AsDirected, PRN: Hypoglycemia. glycerin: 1 supp, Rectal, Daily, PRN: Constipation. guaiFENesin: 200 mg, 10 mL, Oral, q6h. heparin: 5,000 unit(s), 1 mL, Subcutaneous, q8h. insulin glargine: 16 unit(s), 0.16 mL, 0 mL/hr, Subcutaneous (INT), acSupper. insulin lispro (HumaLOG): 5 unit(s), 0.05 mL, Subcutaneous, TIDM. insulin lispro (HumaLOG): Sliding Scale, Subcutaneous, TIDM. lidocaine (lidocaine Patch REMOVAL): 1 EA, Miscellaneous, q24h. lidocaine (lidocaine Patch REMOVAL): 1 EA, Miscellaneous, q24h. lidocaine topical: 1 patch(es), Topical, qDay. lidocaine topical: 2 patch(es), Transdermal, qDay. magnesium hydroxide: 30 mL, Oral, q6h, PRN: Constipation. melatonin: 3 mg, 1 tab(s), Oral, qHS. metoprolol: 37.5 mg, 3 EA, Oral, BID. multivitamin with minerals: 1 tab(s), Oral, qDay. nystatin: 500,000 unit(s), 5 mL, Oral, QID. ocular lubricant: 1 drop(s), Eyes, both, qHS. ocular lubricant: 1 drop(s), Ophthalmic, TID. polyethylene glycol 3350: 17 gram(s), 15 mL, Oral, Daily. polyethylene glycol 3350: 17 gram(s), 15 mL, Oral, qDay, PRN: Constipation. pregabalin: 100 mg, 2 cap(s), Oral, BIDM. pregabalin: 200 mg, 4 cap(s), Oral, qHS. senna: 8.6 mg, 1 tab(s), Oral, BID. traZODone: 25 mg, 0.5 tab(s), Oral, qHS. zinc oxide topical: 1 application, Topical, BID. Documented acetaminophen: 650 mg, Nasogastric, q4h, PRN: as needed for pain, 0 Refill(s). albuterol: 2 puff(s), Inhalation, q4h, PRN: as needed for wheezing, 8.5 gram(s), 0 Refill(s). albuterol-ipratropium: 3 mL, Nebulized, QID, 0 Refill(s). amiodarone: 200 mg, 1 tab(s), Nasogastric, qDay, 30 tab(s), 0 Refill(s). amLODIPine: 5 mg, 1 tab(s), Nasogastric, qDay, 30 tab(s), 0 Refill(s). ammonium lactate topical: 1 application, Topical, PRN: as needed dry skin, 0 Refill(s). aspirin: 81 mg, 1 tab(s), Nasogastric, Daily, 0 Refill(s). atorvastatin: 10 mg, Nasogastric, qHS, 0 Refill(s). budesonide-formoterol: 2 puff(s), Inhalation, BID, 0 Refill(s). docusate: 10 mL, Nasogastric, BID, 0 Refill(s). furosemide: 40 mg, Nasogastric, BID, 0 Refill(s). guaiFENesin: 10 mL, Nasogastric, q6h, 120 mL, 0 Refill(s). heparin: 5,000 unit(s), Subcutaneous, q8h, mL, 0 Refill(s). insulin glargine: 16 unit(s), Subcutaneous, acSupper, 0 Refill(s). insulin isophane (NPH): 38 unit(s), Subcutaneous, Daily, 0 Refill(s). insulin lispro (HumaLOG): 5 unit(s), Subcutaneous, TIDM, 1 EA, 0 Refill(s). insulin lispro (HumaLOG): Sliding Scale, Subcutaneous, TIDM, 10 mL, 0 Refill(s). lidocaine topical: 1 patch(es), Topical, qDay, 0 Refill(s). lidocaine topical: 2 patch(es), Topical, qDay, 0 Refill(s). magnesium hydroxide: 30 mL, Nasogastric, q6h, PRN: as needed for constipation, 0 Refill(s). metoprolol: 37.5 mg, 1 tab(s), Nasogastric, BID, 180 tab(s), 0 Refill(s). morphine: 5 mg, 2.5 mL, Nasogastric, q4h, PRN: as needed for pain, 0 Refill(s). multivitamin with minerals: 1 tab(s), Nasogastric, qDay, 0 Refill(s). nystatin: 500,000 unit(s), 5 mL, Oral, QID, for 14 day(s), 140 mL, 0 Refill(s). ocular lubricant: 1 drop(s), Eyes, both, TID, 0 Refill(s). ocular lubricant: 1 drop, Eyes, both, qHS, 0 Refill(s). pantoprazole: 40 mg, Nasogastric, qDay, 0 Refill(s). polyethylene glycol 3350: 17 gram(s), Nasogastric, Daily, 0 Refill(s). pregabalin: 200 mg, 1 cap(s), Nasogastric, qHS, 0 Refill(s). pregabalin: 100 mg, 1 cap(s), Nasogastric, BID, 60 cap(s), 0 Refill(s). senna: 8.8 mg, 5 mL, Nasogastric, BID, 0 Refill(s). zinc oxide topical: 1 application, Topical, BID, 0 Refill(s). Medications Inactivated in the Last 72 Hours bumetanide: 1.5 mg, 3 tab(s), Oral, BID. bumetanide: 1.5 mg, 3 tab(s), Oral, BID. bumetanide: 0.5 mg, 1 tab(s), Oral, now. docusate: 100 mg, 10 mL, Oral, BID. lidocaine topical: Miscellaneous, Once. lidocaine topical: Miscellaneous, Once. metoprolol: Miscellaneous, Once. Social history: Social support: Lives with daughter Home set-up: Multilevel home. First-floor bedroom, bathroom, laundry Barriers to discharge: Time since onset, safety warnings, past medical history Review of Systems: General: No fever or chills Respiratory: Denies shortness of breath Cardiovascular: Denies chest pain Musculoskeletal: No worsening pain, generalized weakness Psychiatric: No reported cognitive changes Vitals Signs(Last 24 hrs)__Last Charted Minimum Maximum Heart Rate76(APR 17 16:18)74(APR 17 09:18)76(APR 17:18) WAF154(APR 18 00:00)100(APR 17:18)120(APR 17:18) DBP62(APR 18 00:00)L 56(APR 17:18)64(APR 17:18) Physical Exam: General: Appears chronically ill, no acute distress Respiratory: Clear decreased at bases. O2 per nasal cannula. Cardiovascular: No murmur noted Arterial: Good distal pulses Edema: 1 out of 4 pretibial edema bilaterally. No calf tenderness. Musculoskeletal: 4/5 left lower extremity strength 2/5 right lower extremity strength Normal neon sign installer strength left. 0 right Normal shoulder range of motion left. Absent right Increased thoracic kyphosis Osteoarthritis Weight bearing status: As tolerated Skin: Intact Neurological: Cranial nerves intact. Decreased distal sensation. Psychiatric: Alert and cooperative Assessment and plan: Right body stroke. Status post AVR ascending repair, diastolic heart failure, diabetes type 2, obesity, hypertension, history bipolar disorder, COPD Plan: Continue acute rehabilitation with physical and occupational therapy services. Bumex per medical service. Wean oxygen as tolerated. Encourage incentive spirometer. NDT with attempted weightbearing through right side. Humalog and diabetic diet. Percocet or Tylenol for pain. Wean oxygen as pratima ated. Family instruction ongoing. Goal remains discharge home with family and home care services with estimated discharge date April 28. Discussed with patient and therapy team PMH/SH reviewed and unchanged. Risks/benefits of meds, treatments considered. Therapy notes reviewed. Discussed with staff. Note: This dictation was created with assistance of voice recognition software. Phonic and/or minorgrammatical errors may exist. Medications reviewed and are up to date Gaudencio Kirby RN, am scribing for, and in the presence of Dr. Jone AGUILERA. I, Dr. Jone AGUILERA , personally performed the services described in this documentation, as described by Gaudencio Moreira RN in my presence and it is both accurate and complete. Digitally Signed by MALIA BECERRIL DO on 04/19/2023 02:51 PM [facility] [id number] Note Subjective Patient reports he is doing good this morning. States he just completed a good therapy session. Denies any shortness of breath or conversational dyspnea. Daily weights stable. Bumex increased on 04/16 and creatinine holding steady. Denies any glycemic reactions. Denies any lightheadedness or dizziness with blood pressures ranging 100/56-128/60. Denies any uncontrolled pain. Objective General: No acute distress, alert and oriented. Sitting up in wheelchair, working with therapy. Appears comfortable and does not appear in acute pain. Pleasant and cooperative. Good eye contact with flat affect. Interactive HEENT: No nasal drainage, EOMI, moist mucous membranes Respiratory: Lungs with moderate upper airway congestion. Respirations are unlabored on room air. No cough, congestion, or conversational dyspnea Cardiovascular: Heart rate is regular. No bradycardia, tachycardia, or heart murmur Edema/Varicosities of Extremities: 2+ edema to the bilateral lower extremities Gastrointestinal: Abdomen is nontender, soft, and nondistended. Bowel sounds are present in all 4 quadrants Genitourinary: No suprapubic tenderness, CVA tenderness, or bladder distention Neurological: Dysarthria VITALS [id number](kg) 04/18 00:15----[id number]--81/38625.6 04/18 00:0036.2--556604--84/42422.6 04/17 23:54 RA03/35672.6 04/17 16:18----[id number] 1.0L/m03/29176.2 04/17 12:5836.7--930641--35/34882.6 24 Hr Tmax: 36.7 at 04/17 12:58 36 Hr Tmax: 36.8 at 03/04 17:02 Vital Signs are the last 5 in the past 48 hours. Weights display the last 5 within 7 days. Initial Wt: 04/10 125.4 kg 276 lb Current Wt: 04/17 126.6 kg 279 lb LABS No 36 Hour Lab Data Medications Active Inpt Meds: albuterol-ipratropium (DuoNeb) Start: 04/07/23 21:00:00 EST, Dose = 3 mL, Soln, Nebulized, QID, 04/07/23 18:25:00 EST amLODIPine Start: 04/07/23 18:25:00 EST, Dose = 5 mg, = 1 tab(s), Oral, qDay, 04/07/23 18:25:00 EST amiodarone Start: 04/07/23 18:25:00 EST, Dose = 200 mg, = 1 tab(s), Oral, qDay, 04/07/23 18:25:00 EST aspirin (aspirin 81 mg oral tablet, chewable) Start: 04/11/23 9:00:00 EST, Dose = 81 mg, = 1 tab(s), Oral, Daily, 0, 04/10/23 11:10:00 EST atorvastatin Start: 04/10/23 21:00:00 EST, Dose = 10 mg, = 1 tab(s), Oral, qHS, 04/10/23 11:04:00 EST budesonide (Pulmicort Respules 0.25 mg/2 mL inhalation suspension) Start: 04/07/23 18:26:00 EST, Dose = 0.25 mg, = 2 mL, Inhalation, qDayRT, 1st dose location: [place] [id number], 04/07/23 18:26:00 EST bumetanide (Bumex) Start: 04/18/23 16:00:00 EST, Dose = 2 mg, = 2 tab(s), Oral, BID, 04/18/23 16:00:00 EST docusate Start: 04/17/23 20:00:00 EST, Dose = 100 mg, = 1 cap(s), Oral, BID, 04/17/23 12:44:00 EST esomeprazole (Nexium Ther Int for Protonix tube admin) Start: 04/08/23 7:00:00 EST, Dose = 40 mg, =1 cap(s), Nasogastric, acBreakfast, 0 guaiFENesin Start: 04/10/23 12:00:00 EST, Dose = 200 mg, = 10 mL, Oral, q6h, 0, 04/10/23 11:09:00 EST heparin (heparin 5000 units/mL injection) Start: 04/07/23 22:00:00 EST, Dose = 5,000 unit(s), = 1 mL, Subcutaneous, q8h, 04/07/23 18:26:00 EST insulin glargine (Lantus) Start: 04/08/23 16:00:00 EST, Dose = 16 unit(s), = 0.16 mL, Subcutaneous (INT), acSupper, Rate: 0 mL/hr, Infuse over: 0 minute(s), 0, 04/07/23 18:26:00 EST insulin lispro (HumaLOG) (HumaLOG) Start: 04/08/23 8:00:00 EST, Sliding Scale, Subcutaneous, TIDM, 0, 04/07/23 18:27:00 EST insulin lispro (HumaLOG) (HumaLOG 100 units/mL injectable solution VIAL) Start: 04/08/23 8:00:00 EST, Dose = 5 unit(s), = 0.05 mL, Subcutaneous, TIDM, 0, 04/07/23 18:44:00 EST lidocaine (lidocaine Patch REMOVAL) Start: 04/08/23 21:00:00 EST, Dose = 1 EA, Misc, Miscellaneous,q24h, 0 lidocaine (lidocaine Patch REMOVAL) Start: 04/07/23 18:00:00 EST, Dose = 1 EA, Misc, Miscellaneous,q24h, 0 lidocaine topical Start: 04/09/23 9:00:00 EST, Dose = 2 patch(es), Film, Transdermal, qDay, Apply to: skin lidocaine topical (lidocaine 4% patch) Start: 04/08/23 6:00:00 EST, Dose = 1 patch(es), Film, Topical, qDay, 0, 04/07/23 18:27:00 EST melatonin Start: 04/11/23 21:00:00 EST, Dose = 3 mg, = 1 tab(s), Oral, qHS, 04/11/23 8:12:00 EST metoprolol (metoprolol tartrate 25 mg oral tablet) Start: 04/10/23 17:00:00 EST, Dose = 37.5 mg, = 3 EA, Oral, BID, 0, 04/10/23 11:07:00 EST multivitamin with minerals (Centrum) Start: 04/10/23 12:00:00 EST, Dose = 1 tab(s), Tab, Oral, qDay, 0, 04/10/23 11:03:00 EST nystatin Start: 04/07/23 21:00:00 EST, Dose = 500,000 unit(s), = 5 mL, Oral, QID, 14 day(s), Stop: 04/21/23 17:00:00 EST, 0, 04/07/23 18:27:00 EST ocular lubricant (Tears Naturale ophthalmic solution) Start: 04/07/23 21:00:00 EST, Dose = 1 drop(s), OpSol, Ophthalmic, TID, 0 ocular lubricant (Tears Naturale ophthalmic solution) Start: 04/07/23 21:00:00 EST, Dose = 1 drop(s), OpSol, Eyes, both, qHS, 0 polyethylene glycol 3350 (polyethylene glycol 3350 powder packet) Start: 04/11/23 9:00:00 EST, Dose= 17 gram(s), = 15 mL, Oral, Daily, 0, 04/10/23 11:02:00 EST pregabalin (pregabalin 100 mg oral capsule) Start: 04/10/23 17:00:00 EST, Dose = 100 mg, = 2 cap(s), Oral, BIDM, 0, 04/10/23 11:02:00 EST pregabalin (pregabalin 200 mg oral capsule) Start: 04/10/23 21:00:00 EST, Dose = 200 mg, = 4 cap(s), Oral, qHS, 0, 04/10/23 11:03:00 EST senna Start: 04/10/23 20:00:00 EST, Dose = 8.6 mg, = 1 tab(s), Oral, BID, 0, 04/10/23 11:05:00 EST traZODone Start: 04/12/23 21:00:00 EST, Dose = 25 mg, = 0.5 tab(s), Oral, qHS, 0, 04/12/23 13:14:00EST zinc oxide topical (zinc oxide 20% topical ointment) Start: 04/07/23 21:00:00 EST, 1 application, Topical, BID, Apply to: skin, Ointment, 04/07/23 18:28:00 EST Active PRN Meds: Al hydroxide/Mg hydroxide/simethicone (Maalox) Start: 04/07/23 20:05:00 EST, Dose = 30 mL, Susp, Oral, q6h, PRN, Indigestion, 04/07/23 20:05:00 EST acetaminophen-oxyCODONE (Percocet 325/5) Start: 04/10/23 9:33:00 EST, Dose = 1 tab(s), Tab, Oral, q4h, PRN, Pain, scale 4-10, 04/10/23 9:33:00 EST acetaminophen (Tylenol) Start: 04/07/23 18:25:00 EST, Dose = 650 mg, = 20.31 mL, Nasogastric, q4h, PRN, Pain, 0, 04/07/23 18:25:00 EST albuterol (albuterol aerosol soln Therapeutic Interchange for Ventolin MDI) Start: 04/07/23 18:54:00 EST, Dose = 2.5 mg, = 3 mL, Inhalation, q4hRT, PRN, Wheezing, 0 emollients, topical Start: 04/07/23 18:39:00 EST, Dose = 1 nan, Topical, AsDirected, PRN, Dry skin,Apply to: skin, Cream glucagon (GlucaGen) Start: 04/07/23 20:05:00 EST, Dose = 1 mg, = 1 mL, Intramuscular, AsDirected, PRN, Hypoglycemia, if unresponsive, NO IV ACCESS & blood glucose less than 70mg/dL. If still unresponsive after 2 minutes, REPEAT x1., 04/07/23 20:05:00 EST glucose (Dextrose 50% IV Push) Start: 04/07/23 20:05:00 EST, Dose = 12.5 gram(s), = 25 mL, IV Push,AsDirected, PRN, Hypoglycemia, if unresponsive WITH IV ACCESS & blood glucose less than 70mg/dL. If still unresponsive after 2 minutes, REPEAT x1., 04/07/23 20:05:00 EST glucose Start: 04/07/23 20:05:00 EST, Dose = 16 gram(s), = 4 tab(s), Chewed, AsDirected, PRN, Hypoglycemia, DIABETIC PATIENT if responsive & blood glucose less than 70mg/dL. If blood glucose less than 70mg/dL after 15 minutes, REPEAT x1., 0, 04/07/23 20:0... glycerin (glycerin adult rectal suppository) Start: 04/07/23 20:05:00 EST, Dose = 1 supp, Supp, Rectal, Daily, PRN, Constipation, 04/07/23 20:05:00 EST magnesium hydroxide Start: 04/14/23 12:13:00 EST, Dose = 30 mL, Susp-Oral, Oral, q6h, PRN, Constipation, 0, 04/14/23 12:13:00 EST polyethylene glycol 3350 (Miralax Powder Packet) Start: 04/10/23 11:04:00 EST, Dose = 17 gram(s), =15 mL, Oral, qDay, PRN, Constipation, 04/10/23 11:04:00 EST One Time Meds: (Completed) bumetanide (Bumex) Start: 04/18/23 9:15:00 EST, Dose = 0.5 mg, = 1 tab(s), Oral, now, Stop: 04/18/23 9:15:00 EST, 04/18/23 9:07:00 EST Active IV Meds: None Problems (10) Acute ischemic left MCA stroke ([id number]) Aortic stenosis with bicuspid valve (618221541) Bipolar ([id number]) Chronic back pain greater than three months duration ([id number]) COPD (chronic obstructive pulmonary disease) (12553487) HLD (hyperlipidemia) (92276774) HTN (hypertension) ([id number]) Morbid obesity (139593460) Obesity ([id number]) Sleep apnea ([id number]) ASSESSMENT/PLAN: Severe aortic stenosis status post aortic valve replacement as well as repair of the ascending aorta with extensive complicated postoperative course. Follow-up with cardiology scheduled 06/04 Acute ischemic infarct involving the left MCA territory, risk factor modification diabetic and blood pressure control, aspirin plus statin. Follow-up with neurology as scheduled 04/30 New onset atrial fibrillation, patient not currently anticoagulated beyond the aspirin due to petechial hemorrhage noted on repeat CT imaging 04/01, amiodarone added for rate control Aspirin initiated given the acute ischemic CVA Hyperlipidemia on atorvastatin, tolerating without myalgias Hypertension amlodipine, blood pressures currently stable. Bumex recently increased, monitoring blood pressures closely Acute hypoxic respiratory failure with ongoing abnormal lung sounds, pretty compromised lung exam he does have a history of CHF plus COPD chest x-ray obtained 04/09 revealing compromised exam, chest wall artifact obstructing lower lungs Hyperkalemia during hospitalization, losartan was discontinued, monitoring lab work closely. COPD with mild exacerbation DuoNebs plus budesonide; breathing comfortably on room air Type 2 diabetes on Lantus 16 at supper, Humalog with meals and sliding scale. NPH insulin off, continue with the long-acting Lantus as well as mealtime insulin. Blood sugars currently stable. Acute on chronic low back pain, pain management notes reviewed patient will continue with the Lyrica. As needed morphine discontinued due to nonuse. Continue with the as needed Percocet. Lidoderm patch to the buttock/low back. Denies any uncontrolled pain. GI prophylaxis Nexium. Denies GI upset Opioid induced constipation, reports father having DVT prophylaxis continue heparin every 8 hours. Denies any active bleeding Oral thrush nystatin, showing slight improvement, continues on this until 04/20. Dysarthria plus dysphagia, speech therapy, NG tube discontinued 04/12. Free Stuart water protocol in place, tolerating Right upper extremity flaccid hemiparesis Right-sided weakness, working with PT and OT EEG showing mild cortical dysfunction in the left hemisphere but no seizures Right upper extremity edema noted to have a superficial venous thrombosis treated supportively Morbid obesity NG tube removed, continues on minced and moist diet Insomnia minimal response to melatonin, continue with trial trazodone 25 nightly, tolerating; will consider going to 50 mg Acute diastolic CHF exacerbation trial Bumex with limited response will increase this to 2 mg twicedaily Fall, 04/15. Denies any injury. Denies any uncontrolled pain. EKG personally reviewed shows sinus rhythm without evidence of A-fib Patient on room air today respiratory status continues to show improvement Soft blood pressures based on current regimen will discontinue that the amlodipine with close follow-up on blood pressure control Medications reviewed and up to date This document was transcribed using dictation software and may contain typographical errors. Jeannie Kirby RN, am scribing for , and in the presence of Dr. Miner. I, Dr. Miner, personally performed the services described in this documentation, as scribed by, Jeannie Martin RN in my presence and it is both accurate and complete. Digitally Signed by BENJAMIN MINER DO on 04/23/2023 12:35 PM [facility] [id number] Physical medicine and rehab Progress note Date of Service 04/18/2023 Chief Complaint Right body stroke Subjective Patient is a 62 -year-old male seen today in follow-up. Case discussed in team staffing. Weekly rehab report is reviewed. Case discussed with family. All questions are answered. Plan is to continue acute rehab with PT OT and speech-language therapy services. Continue to work on gait training range of motion strengthening ADLs self-care speech-language and dysphagia therapy. Partial mod bed ability transfers and gait. Goal is for discharge home at a modified independent level with probable home care services. Plan discharge date 04/28 Barriers to discharge right body stroke and severe dysarthria For further details, please see electronic team staffing note Medication list reviewed Objective Vitals and Measurements T: 36.6 C (Temporal Artery) TMIN: 36.0 C (Oral) TMAX: 36.8 C (Oral) HR: 74(Apical) RR: 18 BP: 120/64 SpO2: 95% WT: 126.6 kg Intake and Output 7AM Yesterday to 7AM Today Intake and Output (Last 24 hours) Intake Supplement Intake 237.00 Output Total Summary Total Intake 237.00 Total Output 0.00 Fluid Balance 237.00 Physical Exam General Appearance: Alert and oriented 3 no apparent distress Head: Normocephalic no evidence of trauma EENT: Pupils equal and reactive to light and accommodation no erythema. Ears with no external lesions or discharge. Nose clear nares patent no discharge. Throat normal healthy dentition no redness orerythema. Neck: Trachea midline. No lymphatic adenopathy Cardiac: Regular rate and rhythm, no rubs or murmurs Lungs: Decreased at bases. O2 per NC Abdomen: Soft nontender no organomegaly or rebound positive bowel sounds Musculoskeletal: Intact range of motion no erythema no polyarthritic changes Extremities: No edema. Negative Homans sign Neurological: Right hemiparesis. Severe dysarthria. trace rue mvmt Skin: Intact without rashes or erythema Psychiatric: Mood good. No anxiety depression Medication list reviewed Therapy notes reviewed Weight Current Weight Dosing Weight: 126.6 kg (04/18/23) Current Weight: 126.2 kg (04/15/23) Dosing Weight: 126.6 kg (04/17/23) Current Weight: 126.6 kg (04/14/23) Medications Medications (43) Active Scheduled: (32) albuterol - ipratropium 2.5 mg-0.5 mg/3 mL Inhal Mattie UD 3 mL, Nebulized, QID amiodarone 200 mg tablet 200 mg 1 tab(s), Oral, qDay amLODIPine 5 mg tablet 5 mg 1 tab(s), Oral, qDay aspirin 81 mg Chewable 81 mg 1 tab(s), Oral, Daily atorvastatin 10 mg tablet 10 mg 1 tab(s), Oral, qHS budesonide 0.25 mg/2 mL Susp UD 0.25 mg 2 mL, Inhalation, qDayRT bumetanide 0.5 mg tablet 1.5 mg 3 tab(s), Oral, BID bumetanide 0.5 mg tablet 0.5 mg 1 tab(s), Oral, now bumetanide 1 mg tablet 2 mg 2 tab(s), Oral, BID docusate sodium 100 mg Capsule 100 mg 1 cap(s), Oral, BID esomeprazole [address] capsule 40 mg 1 cap(s), Nasogastric, acBreakfast guaifenesin 100 mg/5 mL Liquid SUGAR-FREE 120 mL 200 mg 10 mL, Oral, q6h heparin 5,000 units/mL (1 mL) vial 5,000 unit(s) 1 mL, Subcutaneous, q8h insulin glargine 16 unit(s) 0.16 mL, Subcutaneous (INT), acSupper insulin lispro 100 units/mL Soln (3 mL) Sliding Scale, Subcutaneous, TIDM insulin lispro 100 units/mL Soln (3 mL) 5 unit(s) 0.05 mL, Subcutaneous, TIDM lidocaine patch REMOVAL 1 EA, Miscellaneous, q24h lidocaine patch REMOVAL 1 EA, Miscellaneous, q24h lidocaine topical 4% patch 2 patch(es), Transdermal, qDay lidocaine topical 4% patch 1 patch(es), Topical, qDay melatonin 3 mg tablet 3 mg 1 tab(s), Oral, qHS metoprolol tartrate 12.5 mg ( HALF-TAB ) 37.5 mg 3 EA, Oral, BID multivitamin (Myadec) with minerals Therapeutic Multiple Vitamins with Minerals Tablet 1 tab(s), Oral, qDay nystatin susp 100,000 units/mL 5 mL UD 500,000 unit(s) 5 mL, Oral, QID ocular lubricant preserved Soln 15 mL 1 drop(s), Ophthalmic, TID ocular lubricant preserved Soln 15 mL 1 drop(s), Eyes, both, qHS polyethylene glycol 3350 - UD packet 17 gram(s) 15 mL, Oral, Daily pregabalin 50 mg capsule 100 mg 2 cap(s), Oral, BIDM pregabalin 50 mg capsule 200 mg 4 cap(s), Oral, qHS senna 8.6 mg Tablet 8.6 mg 1 tab(s), Oral, BID traZODONE 50 mg Tablet 25 mg 0.5 tab(s), Oral, qHS zinc oxide topical 20% Ointment 1 application, Topical, BID Continuous: (0) PRN: (11) acetaminophen 160 mg/5 mL Suspension 650 mg 20.31 mL, Nasogastric, q4h acetaminophen-OXYcodone 325 mg-5 mg Tablet 1 tab(s), Oral, q4h Al hydrox/Mg hydrox/simethicone 200-200-20 mg/5 mL Susp UD 30 mL, Oral, q6h albuterol 0.083% Soln UD (2.5mg/3 mL) 2.5 mg 3 mL, Inhalation, q4hRT dextrose 50% Solution Disp syringe 50 mL 12.5 gram(s) 25 mL, IV Push, AsDirected emollients (Eucerin Cream) 30gm 1 nan, Topical, AsDirected glucagon recombinant 1 mg 1 mg 1 mL, Intramuscular, AsDirected glucose 4 gm Chewable 16 gram(s) 4 tab(s), Chewed, AsDirected glycerin adult Suppository 1 supp, Rectal, Daily magnesium hydroxide 8% Suspension 30 mL UD 30 mL, Oral, q6h polyethylene glycol 3350 - UD packet 17 gram(s) 15 mL, Oral, qDay Lab Results 04/16 09:08 Glucose Level: 230 H Sodium Level: 140 Potassium Level: 4.7 BUN: 23.0 H Creatinine Lvl (s): 0.90 EKG No qualifying data available. Assessment/Plan 1. Acute ischemic left MCA stroke Acute rehabilitation physical occupational and speech therapy 2. Aortic stenosis with bicuspid valve With cardiothoracic surgeon 3. COPD (chronic obstructive pulmonary disease) Aerobic exercises 4. HLD (hyperlipidemia) Statin 5. HTN (hypertension) stable 6. Morbid obesity Slow weight loss Time Spent 25 min Digitally Signed by MALIA BECERRIL DO on 04/18/2023 09:46 AM Digitally Signed by MALIA BECERRIL DO on 04/18/2023 11:48 AM [id number] Note REFERRING PHYSICIAN: Malia Becerril DO. CONSULTING PSYCHOLOGIST: Eitan Baeza, PhD. REASON FOR REFERRAL: Psychological exam and treatment. HISTORY OF PRESENT ILLNESS: Mr. Catherine is a 62-year-old white male admitted to [facility] from [facility] after undergoing elective aortic valve replacement.Unfortunately, postoperatively, he developed left MCA infarction causing dense right-sided weakness, speech and swallow dysfunction requiring modified diet, milder cognitive impairments and understandable emotional distress. Patient required PEG tube feeding for a time. He developed skin wounds on his ischium requiring wound care. He developed first onset atrial fibrillation, placed on amiodarone. During workup was foundto have severe C6-C7 right-sided foraminal stenosis, likely contributing to some of his upper right-sided weakness. This will be addressed as an outpatient. PAST MEDICAL HISTORY: Includes morbid obesity, type 2 diabetes, COPD, CAD, hypertension, hyperlipidemia, obstructive sleep apnea, CPAP compliant, diastolic congestive heart failure. MENTAL HEALTH HISTORY: Given by Mr. Catherine is of being treated for depression and being labeled with bipolar, but he suspects he did not have bipolar. He was never placed on a mood stabilizer, only an antidepressant. He has had no episodes for at least 15 years of depression and no manic episodes that he can recall. He has not worked with Psychology ever. He has worked with Psychiatry in the past, but cannot recall the name of the antidepressant he was on. He denies any mental health history. CURRENT MEDICATIONS: Reviewed. He is on no psychotropics. He is getting 25 mg Benadryl for sleep aid. INTERVIEW RESULTS: Physically, patient correctly identifies dense upper greater than lower extremity weakness. Still on a modified diet with [id number] dysphagia and dysarthria. He has visualsymptoms as well as headaches. He is on oxygen at 2 liters per minute. He has a Zazueta catheter. Cognitively, he reports mild difficulties with attention and memory. More significant problems withword finding, aggravated by the dysarthria. 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 Emotionally, Mr. Catherine admits to mild worry, discouragement and frustration. States he has a verymatter of fact attitude about this. He can only work on what he can work on and he has to accept the rest. He denies any severe symptoms such as panic, nightmares, psychoses, suicidal thoughts, raquel. Affect is polite and pleasant. Frustrated by his difficulties with word finding and articulation but he manages. States he is still sleeping very poorly with only the Benadryl. After discussion, he agreed to allow me to ask Dr. Becerril for something stronger such as low dose trazodone. Appetite is poor on the modified diet. Mr. Catherine lives outside of [place] with his Shadia and daughter Apple. He has 6 children, 5 adopted. 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 He has a high school diploma. CONCLUSIONS: Results of psychological exam reveals current diagnosis of adjustment disorder with mixed emotional features, mild. By chart review he has a history of bipolar, but circumstances make this uncertain. In any case, he is denying any manic symptoms and has not required medication or psychiatric management for 15 years, he reports. I offered supportive followup counseling and he accepted. I thank Dr. Becerril for this referral. 30 minutes EITAN BAEZA, PhD SUSHIL/NIKKY JOB#: [id number] DICTATION ID#: [id number] Digitally Signed by EITAN BAEZA PhD on 04/17/2023 01:38 PM [id number] Miscellaneous Notes* Telephone Encounter - Bhavani Juan RN - 04/13/2023 9:50 AM EST Ya from [facility] from pt's secondary insurance asking for pt's discharge instructions from [facility] on 04/07. She states pt had a stroke and has aphasia so he can't speak with her.Pt is at a rehab facility and they don't want to give her the discharge instructions. It appears ptdid not have a hospital discharge that day because it appears he was in hospital early Mar. I explained to her I didn't see the information she requested and gave her medical records phone number. [id number] and rehab Consult note INPATIENT REHAB HISTORY AND PHYSICAL CONSULTATION DATE OF ADMISSION: 04/07/2023 CC: AVR ascending repair, CVA Admission History and Physical HISTORY OF PRESENT ILLNESS: This is a 62-year-old male admitted to [place] inpatient re[facility] from [facility] for planned surgery AVR and ascending repair on 03/20. Patient did have a previous TIMOTEO in 2022 that showed severe aortic stenosis which is the reasoning for the AVR and ascending repair. Postsurgery and post extubation patient was noted to have dysarthria, left-sided weakness, and a right upper extremity weakness. CT of the head obtained showing a late acute to early or subacute infarct in the left MCA territory. Patient does have a wound to the right lower extremity is now status post debridement, also has a wound to the great anterior toe and coccyx ulcer. Stay was then complicated by postop atrial fibrillation on 03/22 and was initiated on p.o. amiodarone at 200 mg daily. Speech therapy evaluated patient was found to have dysphagia, he did require tube feed and Corpak placement, PEG tube placed on 03/23. He continues on Jevity 1.5 mary jane continuously at 50 mL an hour as well as 458 milliliters flush every 4 hours. Also on a minced and moist diet with mildly thick liquids. He has a longstanding history of chronic back pain and was seen by pain management during hospitalization and was placed on oxycodone however this has been since then discontinued. Patient has history of hypertension however losartan was discontinued due to hyperkalemia. CT obtained on 04/01 showing evolving left MCA territory infarct with tiny focus of petechial hemorrhage transformation. Patient reported right upper extremity weakness and CT of cervical spine was obtained showed severe right neural foraminal narrowing at C6-7. Neurology team was consulted and deemed there is no surgical intervention needed. EEG was also performed showing mild cortical dysfunction with left-sided hemiparesis, no seizure-like activity found. Due to the edema to the right upper extremity a Doppler was obtained showing SVT and cephalic vein antecubital fossa to the wrist as well as the median cubital vein. Patient became hypoxic's chest x-ray was performed showing pleural effusion and he did have some bilateral extremity edema was placed on initially a low-dose Lasix however is now at Lasix 40 mg twice daily. He does have ahistory of diabetes mellitus 2 and did have some hyperglycemia throughout his stay in the hospital.Was initiated on sliding scale insulin, hemoglobin A1c at 6.5%. Placed on heparin twice daily for DVT prophylaxis. Today, patient is sitting up in wheelchair and denies any uncontrolled pain, he is on the as needed morphine but can control disease has been effective. States he has been better at night now with the as needed use on place. Denies any difficulty swallowing or chewing with mechanically altered diet, Corpak/PEG to remain in place. Denies any shortness with conversational dyspnea states breathing is comfortable, respirations unlabored on 2 L oxygen per nasal cannula. Denies any cough or congestion, recent chest x-ray obtained on 04/08 showed compromise exam, chest wall or back obstruction in the lower lungs. 2+ right upper extremity edema, 1+ left upper extremity 3+ bilateral lower extremity edema. Denies any lightness, dizziness, headache with blood pressures ranging 114/60 1 30/64. Denies any chest pain or chest pressure with heart rates ranging 60 to 63. Recent labs with WBC 9.4, hemoglobin 12.8, platelet 231, sodium 139, potassium 4.5, BUN 39, creatinine 0.89. He does have follow-up BMP and CBC pending results today. Patient denies any nausea, vomiting, constipation, loose stools, shortness of breath, or chest pain. Hospital medications, labs, and diagnostics have been reviewed and reconciled. PAST MEDICAL HISTORY: Morbid obesity Diabetes mellitus type 2 COPD Coronary artery disease Bipolar Hypertension Hyperlipidemia Obstructive sleep apnea with CPAP Bicuspid aortic stenosis Diastolic congestive heart failure PAST SURGICAL HISTORY: Lumbar fusion Bilateral carpal tunnel release Left shoulder surgery Nasal passage clearing for sleep apnea Open reduction internal fixation of right ankle The left ulnar nerve decompression SOCIAL HISTORY: Denies any alcohol use, tobacco use, or substance abuse Lives at home with his family FAMILY HISTORY: Denies any significant past family medical history CODE STATUS: Full code ALLERGIES: Flonase Penicillin PCP: Dr. Adin Arthur BMI-67.68 kg WT-357.7 pounds Vitals Signs(Last 24 hrs)__Last Charted Minimum Maximum Temp36.8(APR 09 23:23)36.8(APR 09 23:23)36.9(APR 09 08:05) Heart Rate62(APR 09 23:23)62(APR 09 08:16)62(APR 09 08:16) HQE415(APR 09 23:23)124(APR 09 23:23)138(APR 09 08:05) DBP62(APR 09 23:23)62(APR 09 23:23)64(APR 09 08:05) REVIEW OF SYSTEMS: General: The patient appears frail and debilitated requiring assistance with activities of daily living including mobility. Constitutional: Appetite is fair. Denies any uncontrolled pain. No fever. No chills. HEENT: Eyes: No blurring, discharge, or pain. ENT: No congestion, discharge or epistaxis. Respiratory: No cough, no dyspnea. No hemoptysis. Cardiovascular: No chest pain. No claudication. No paroxysmal nocturnal dyspnea. Gastrointestinal: No constipation, diarrhea, nausea, vomiting or abdominal pain. No dysphagia. Genitourinary: No dysuria, frequency or urgency. Neurological: No new focal weakness. No seizure or tremor. Dysarthria Musculoskeletal: No contractures or altered range of motion. Endocrine: No hot or cold intolerance. No hypoglycemia. Skin: Sternal incision well-approximated without redness warmth or drainage. Great anterior toe wound, ulcer to coccyx, and right lower extremity wound with dressings in place. There is no signs or symptoms of infection. Mental Status: No changes in mental status. PHYSICAL EXAMINATION: Physical Exam: General: Appears chronically ill, in no acute distress. Alert and oriented. Sitting up in chair watching TV. Appears clinically does not appear in acute pain. Pleasant and cooperative. Good eye contact with flat affect. HEENT: Mucous membranes moist, no nasal drainage, EOMI. NG tube in place to right nare. Moderate amount of oral thrush Respiratory: Lungs with severely limited inspiration, notable upper airway congestion with cough. Respirations unlabored on 2 L oxygen per nasal cannula. Cardiovascular: Regular rate rhythm; no murmurs, rubs, or gallops. Edema/Varicosities of Extremities: 2+ right upper extremity edema, 1+ left upper extremity, 3+ bilateral lower extremity edema Gastrointestinal: Abdomen soft, NT, ND, without masses. Bowel sounds normal X4 Genitourinary: No suprapubic/CVA tenderness or bladder distention. Musculoskeletal: Exam shows no misalignment, tenderness, or effusion. Skin: Sternal incision well-approximated without redness warmth or drainage. Great anterior toe wound, ulcer to coccyx, and right lower extremity wound with dressings in place. There is no signs or symptoms of infection. Neurological: No tremor or focal weakness. Dysarthria, Flaccid right upper extremity hemiparesis 4/5 strength right lower extremity Psychiatric: A & O x1, forgetful. Mood pleasant and cooperative. Judgment/insight: limited. Short term memory with limitations. Medication List Active Medications Ordered acetaminophen: 650 mg, 20.31 mL, Nasogastric, q4h, PRN: Pain. albuterol: 2.5 mg, 3 mL, Inhalation, q4hRT, PRN: Wheezing. albuterol-ipratropium: 3 mL, Nebulized, QID. Al hydroxide/Mg hydroxide/simethicone: 30 mL, Oral, q6h, PRN: Indigestion. amiodarone: 200 mg, 1 tab(s), Nasogastric, qDay. amLODIPine: 5 mg, 1 tab(s), Nasogastric, qDay. aspirin: 81 mg, 1 tab(s), Nasogastric, Daily. atorvastatin: 10 mg, 1 tab(s), Nasogastric, qHS. budesonide: 0.25 mg, 2 mL, Inhalation, qDayRT. diphenhydrAMINE: 25 mg, 1 tab(s), Oral, qHS, PRN: Insomnia. docusate: 100 mg, 10 mL, Nasogastric, BID. emollients, topical: 1 nan, Topical, AsDirected, PRN: Dry skin. esomeprazole: 40 mg, 1 cap(s), Nasogastric, acBreakfast. furosemide: 40 mg, 1 tab(s), Nasogastric, BID. glucagon: 1 mg, 1 mL, Intramuscular, AsDirected, PRN: Hypoglycemia. glucose: 12.5 gram(s), 25 mL, IV Push, AsDirected, PRN: Hypoglycemia. glucose: 16 gram(s), 4 tab(s), Chewed, AsDirected, PRN: Hypoglycemia. glycerin: 1 supp, Rectal, Daily, PRN: Constipation. guaiFENesin: 200 mg, 10 mL, Nasogastric, q6h. heparin: 5,000 unit(s), 1 mL, Subcutaneous, q8h. insulin glargine: 16 unit(s), 0.16 mL, 0 mL/hr, Subcutaneous (INT), acSupper. insulin isophane (NPH): 38 unit(s), 0.38 mL, Subcutaneous, Daily. insulin lispro (HumaLOG): 5 unit(s), 0.05 mL, Subcutaneous, TIDM. insulin lispro (HumaLOG): Sliding Scale, Subcutaneous, TIDM. lidocaine (lidocaine Patch REMOVAL): 1 EA, Miscellaneous, q24h. lidocaine (lidocaine Patch REMOVAL): 1 EA, Miscellaneous, q24h. lidocaine topical: 1 patch(es), Topical, qDay. lidocaine topical: 2 patch(es), Transdermal, qDay. magnesium hydroxide: 30 mL, Nasogastric, q6h, PRN: Constipation. metoprolol: 37.5 mg, 1.5 tab(s), Nasogastric, BID. morphine: 5 mg, 0.25 mL, Nasogastric, q4h, PRN: Pain, breakthrough. multivitamin with minerals: 1 tab(s), Nasogastric, qDay. nystatin: 500,000 unit(s), 5 mL, Oral, QID. ocular lubricant: 1 drop(s), Eyes, both, qHS. ocular lubricant: 1 drop(s), Ophthalmic, TID. polyethylene glycol 3350: 17 gram(s), 15 mL, Nasogastric, qDay, PRN: Constipation. polyethylene glycol 3350: 17 gram(s), 15 mL, Nasogastric, Daily. pregabalin: 100 mg, 2 cap(s), Nasogastric, BIDM. pregabalin: 200 mg, 4 cap(s), Nasogastric, qHS. senna: 8.6 mg, 1 tab(s), Nasogastric, BID. zinc oxide topical: 1 application, Topical, BID. Documented acetaminophen: 650 mg, Nasogastric, q4h, PRN: as needed for pain, 0 Refill(s). albuterol: 2 puff(s), Inhalation, q4h, PRN: as needed for wheezing, 8.5 gram(s), 0 Refill(s). albuterol-ipratropium: 3 mL, Nebulized, QID, 0 Refill(s). amiodarone: 200 mg, 1 tab(s), Nasogastric, qDay, 30 tab(s), 0 Refill(s). amLODIPine: 5 mg, 1 tab(s), Nasogastric, qDay, 30 tab(s), 0 Refill(s). ammonium lactate topical: 1 application, Topical, PRN: as needed dry skin, 0 Refill(s). aspirin: 81 mg, 1 tab(s), Nasogastric, Daily, 0 Refill(s). atorvastatin: 10 mg, Nasogastric, qHS, 0 Refill(s). budesonide-formoterol: 2 puff(s), Inhalation, BID, 0 Refill(s). docusate: 10 mL, Nasogastric, BID, 0 Refill(s). furosemide: 40 mg, Nasogastric, BID, 0 Refill(s). guaiFENesin: 10 mL, Nasogastric, q6h, 120 mL, 0 Refill(s). heparin: 5,000 unit(s), Subcutaneous, q8h, mL, 0 Refill(s). insulin glargine: 16 unit(s), Subcutaneous, acSupper, 0 Refill(s). insulin isophane (NPH): 38 unit(s), Subcutaneous, Daily, 0 Refill(s). insulin lispro (HumaLOG): 5 unit(s), Subcutaneous, TIDM, 1 EA, 0 Refill(s). insulin lispro (HumaLOG): Sliding Scale, Subcutaneous, TIDM, 10 mL, 0 Refill(s). lidocaine topical: 1 patch(es), Topical, qDay, 0 Refill(s). lidocaine topical: 2 patch(es), Topical, qDay, 0 Refill(s). magnesium hydroxide: 30 mL, Nasogastric, q6h, PRN: as needed for constipation, 0 Refill(s). metoprolol: 37.5 mg, 1 tab(s), Nasogastric, BID, 180 tab(s), 0 Refill(s). morphine: 5 mg, 2.5 mL, Nasogastric, q4h, PRN: as needed for pain, 0 Refill(s). multivitamin with minerals: 1 tab(s), Nasogastric, qDay, 0 Refill(s). nystatin: 500,000 unit(s), 5 mL, Oral, QID, for 14 day(s), 140 mL, 0 Refill(s). ocular lubricant: 1 drop(s), Eyes, both, TID, 0 Refill(s). ocular lubricant: 1 drop, Eyes, both, qHS, 0 Refill(s). pantoprazole: 40 mg, Nasogastric, qDay, 0 Refill(s). polyethylene glycol 3350: 17 gram(s), Nasogastric, Daily, 0 Refill(s). pregabalin: 200 mg, 1 cap(s), Nasogastric, qHS, 0 Refill(s). pregabalin: 100 mg, 1 cap(s), Nasogastric, BID, 60 cap(s), 0 Refill(s). senna: 8.8 mg, 5 mL, Nasogastric, BID, 0 Refill(s). zinc oxide topical: 1 application, Topical, BID, 0 Refill(s). Medications Inactivated in the Last 72 Hours acetaminophen: 650 mg, 2 tab(s), Oral, q4h, PRN: Muscle pain. albuterol: 2 puff(s), Inhalation, q4h, PRN: Wheezing. albuterol: 2.5 mg, 3 mL, Inhalation, QIDRT. ammonium lactate topical: 1 application, Topical, PRN: Allergy symptoms. docusate: 100 mg, 1 cap(s), Oral, BID, PRN: Constipation. esomeprazole: See Instructions, Oral qDay. hydrochlorothiazide: Oral, qDay. insulin lispro (HumaLOG): 5 unit(s), Subcutaneous, TIDM. lidocaine topical: 1 patch(es), Topical, qDay. lidocaine topical: 2 patch(es), Topical, qDay. lisinopril: Oral, qDay. magnesium hydroxide: 30 mL, Nasogastric, Daily, PRN: Constipation. metFORMIN: 850 mg, 1 tab(s), Oral, qAM. Misc Medication: HTN medication a day. Misc Medication: Bipolar medication. morphine: 5 mg, 2.5 mL, Nasogastric, q4h, PRN: Pain. morphine: 30 mg, 1 tab(s), Oral, q12h. ocular lubricant: 1 drop, Eyes, both, qHS. ocular lubricant: 1 drop(s), Eyes, both, TID. pantoprazole: 40 mg, Nasogastric, qDay. pregabalin: Miscellaneous, Once. pregabalin: Miscellaneous, Once. pregabalin: 100 mg, 1 cap(s), Oral, TID. REVIEW OF LABS, DIAGNOSTICS Hospital labs and diagnostics reviewed. 36hr Labs 04/09 2246 Blood Glucose, [id number] Blood Glucose, [id number] 04/09 1738 Blood Glucose, [id number] Blood Glucose, [id number] 04/09 1201 Blood Glucose, [id number] Blood Glucose, [id number] Blood Glucose TSee Flowsheet 04/09 0805 Blood Glucose, [id number] Blood Glucose, [id number] Blood Glucose TSee Flowsheet 04/08 2221 Blood Glucose, [id number] Blood Glucose, [id number] 04/08 1706 Blood Glucose, [id number] Blood Glucose, [id number] Blood Glucose TSee Flowsheet ASSESSMENT AND PLAN: actively managed medical problems include Severe aortic stenosis status post aortic valve replacement as well as repair of the ascending aorta with extensive complicated postoperative course. Acute ischemic infarct involving the left MCA territory, risk factor modification diabetic and blood pressure control, aspirin plus statin New onset atrial fibrillation, patient not currently anticoagulated beyond the aspirin due to petechial hemorrhage noted on repeat CT imaging 04/01, amiodarone added for rate control Aspirin initiated given the acute ischemic CVA Hyperlipidemia on atorvastatin Hypertension amlodipine Acute diastolic CHF exacerbation currently on Lasix 40 twice daily Acute hypoxic respiratory failure with ongoing abnormal lung sounds, pretty compromised lung exam he does have a history of CHF plus COPD chest x-ray obtained 04/09 revealing compromised exam, chest wall artifact obstructing lower lungs Hyperkalemia during hospitalization, losartan was discontinued COPD with mild exacerbation DuoNebs plus budesonide Type 2 diabetes on NPH 38 daily, Lantus 16 at supper, Humalog with meals and sliding scale. Will need to be reevaluated in the next 24 hours uncertain why he is on long-acting plus the NPH Acute on chronic low back pain, pain management notes reviewed patient will continue with the Lyrica GI prophylaxis Nexium Open induced constipation DVT prophylaxis continue heparin every 8 Oral thrush nystatin Dysarthria plus dysphagia consult speech therapy, NG tube in place with calorie counts although NG tube is not functioning we will see how his calorie counts are today Right upper extremity flaccid hemiparesis Right-sided weakness consultation with PT and OT EEG showing mild cortical dysfunction in the left hemisphere but no seizures Right upper extremity edema noted to have a superficial venous thrombosis treated supportively Morbid obesity ORDERS- PT/OT/ST FEES testing Discussion and summaries: Reviewed with nursing staff. Our group will follow during acute rehabilitation stay at [facility] with the goal of returning to a more independent living status at the conclusion of the stay. Medications reviewed and up to date This document was transcribed using dictation software and may contain typographical errors. Jeannie Kirby RN, am scribing for , and in the presence of Dr. Miner. I, Dr. Miner, personally performed the services described in this documentation, as scribed by, Jeannie Martin RN in my presence and it is both accurate and complete. Digitally Signed by BENJAMIN MINER DO on 04/13/2023 09:35 AM [id number] Evaluation + Plan noteExtracted from: Title:Clinical Document Author:JESUS MANUEL MELENDREZ TECHNICAL ACCOUNT REPRESENTATIVE-GUEST HISTORY CLERK Date:04/08/23 Acute Inpatient Rehab Histor y and Physical Date of Service: 12/07/2023 Date of Admission: 12/06/2023 Attending Physician: Dr. Becerril [employer] 1.2 right body involved, left brain CVA Etiologic Diagnosis Left MCA infarct History of Present Illness This is a 62-year-old male admitted to [place] inpatient rehab from [facility] for planned surgery AVR and ascending repair on 03/20. Patient did have a previous TIMOTEO in 2022 that showed severe aortic stenosis which is the reasoning for the AVR and ascending repair. Postsurgery and post extubation patient was noted to have dysarthria, left-sided weakness, and a right upper extremity weakness. CT of the head obtained showing a late acute to early or subacute infarct in the left MCA territory. Patient does have a wound to the right lower extremity is now status post debridement, also has a wound to the great anterior toe and coccyx ulcer. Stay was then complicated by postop atrial fibrillation on 03/22 and was initiated on p.o. amiodarone at 200 mg daily. Speech therapy evaluated patient was found to have dysphagia, he did require tube feed and Corpak placement, PEG tube placed on 03/23. He continues on Jevity 1.5 mary jane continuously at 50 mL an hour as well as 458 milliliters flush every 4 hours. Also on a minced and moist diet with mildly thick liquids. He has a longstanding history of chronic back pain and was seen by pain management during hospitalization and was placed on oxycodone however this has been since then discontinued. Patient has history of hypertension however losartan was discontinued due to hyperkalemia. CT obtained on 04/01 showing evolving left MCA territory infarct with tiny focus of petechial hemorrhage transformation. Patient reported right upper extremity weakness and CT of cervical spine was obtained showed severe right neural foraminal narrowing at C6-7. Neurology team was consulted and deemed there is no surgical intervention needed. EEG was also performed showing mild cortical dysfunction with left-sided hemiparesis, no seizure-like activity found. Due to the edema to the right upper extremity a Doppler was obtained showing SVT and cephalic vein antecubital fossa to the wrist as well as the median cubital vein. Patient became hypoxic's chest x-ray was performed showing pleural effusion and he did have some bilateral extremity edema was placed on initially a low-dose Lasix however is now at Lasix 40 mg twice daily. He does have a history of diabetes mellitus 2 and did have some hyperglycemia throughout his stay in the hospital. Was initiated on sliding scale insulin, hemoglobin A1c at 6.5%. Placed on heparin twice daily for DVT prophylaxis. He was deemed medically stable and transferred to [place] inpatient rehab for physical and occupational therapy as well as medical supervision. Due to the fact that he had impairments of gait mobility ADLs and self-care and medical complexity, decision was made to admit her to the acute physical rehabilitation unit. Baseline functional status is independent Admit functional status currently at moderate to maximum assist. Today, patient is sitting up in chair watching TV. He denies any pain today on examination, he does have the as needed Tylenol place for breakthrough pain as well as having the scheduled lidocaine patch. He denies any uncontrolled pain at this current time. He has about +1 edema to the bilateral extremities. Lungs with bilateral rhonchi. Respirations are unlabored on 2 L oxygen per nasal cannula. Denies any cough or congestion states breathing is comfortable. He denies any lightness, dizziness, headache with blood pressures 112/60 1 32/60. Denies any chest pain or chest pressure with heart rate ranging 76 79. He denies any glycemic reactions most recent blood sugar 234. Will monitoring blood sugars before meals and at bedtime. He nursing reports his bowels are moving and patient denies any urinary symptoms. He is reporting that he is tolerating his mechanically altered diet as well as the Corpak and PEG tube without any difficulties. Denies any nausea or vomiting. He has a follow-up CMP and CBC pending results for today Medications (40) Active Scheduled: (29) albuterol - ipratropium 2.5 mg-0.5 mg/3 mL Inhal Mattie UD 3 mL, Nebulized, QID amiodarone 200 mg tablet 200 mg 1 tab(s), Nasogastric, qDay amLODIPine 5 mg tablet 5 mg 1 tab(s), Nasogastric, qDay aspirin 81 mg Chewable 81 mg 1 tab(s), Nasogastric, Daily atorvastatin 10 mg tablet 10 mg 1 tab(s), Nasogastric, qHS budesonide 0.25 mg/2 mL Susp UD 0.25 mg 2 mL, Inhalation, qDayRT docusate 10 mg/mL Liq 10mL UD 100 mg 10 mL, Nasogastric, BID esomeprazole [address] capsule 40 mg 1 cap(s), Nasogastric, acBreakfast furosemide 40 mg tablet 40 mg 1 tab(s), Nasogastric, BID guaifenesin 100 mg/5 mL Liquid SUGAR-FREE 120 mL 200 mg 10 mL, Nasogastric, q6h heparin 5,000 units/mL (1 mL) vial 5,000 unit(s) 1 mL, Subcutaneous, q8h insulin glargine 16 unit(s) 0.16 mL, Subcutaneous (INT), acSupper insulin isophane human recombinant 100 units/ml (10 mL) Inj 38 unit(s) 0.38 mL, Subcutaneous, Daily insulin lispro 100 units/mL Soln (3 mL) Sliding Scale, Subcutaneous, TIDM insulin lispro 100 units/mL Soln (3 mL) 5 unit(s) 0.05 mL, Subcutaneous, TIDM lidocaine patch REMOVAL 1 EA, Miscellaneous, q24h lidocaine patch REMOVAL 1 EA, Miscellaneous, q24h lidocaine topical 4% patch 2 patch(es), Transdermal, qDay lidocaine topical 4% patch 1 patch(es), Topical, qDay metoprolol tartrate 25 mg tablet 37.5 mg 1.5 tab(s), Nasogastric, BID multivitamin (Myadec) with minerals Therapeutic Multiple Vitamins with Minerals Tablet 1 tab(s), Nasogastric, qDay nystatin susp 100,000 units/mL 5 mL UD 500,000 unit(s) 5 mL, Oral, QID ocular lubricant preserved Soln 15 mL 1 drop(s), Ophthalmic, TID ocular lubricant preserved Soln 15 mL 1 drop(s), Eyes, both, qHS polyethylene glycol 3350 - UD packet 17 gram(s) 15 mL, Nasogastric, Daily pregabalin 50 mg capsule 100 mg 2 cap(s), Nasogastric, BIDM pregabalin 50 mg capsule 200 mg 4 cap(s), Nasogastric, qHS senna 8.6 mg Tablet 8.6 mg 1 tab(s), Nasogastric, BID zinc oxide topical 20% Ointment 1 application, Topical, BID Continuous: (0) PRN: (11) acetaminophen 160 mg/5 mL Suspension 650 mg 20.31 mL, Nasogastric, q4h Al hydrox/Mg hydrox/simethicone 200-200-20 mg/5 mL Susp UD 30 mL, Oral, q6h albuterol 0.083% Soln UD (2.5mg/3 mL) 2.5 mg 3 mL, Inhalation, q4hRT dextrose 50% Solution Disp syringe 50 mL 12.5 gram(s) 25 mL, IV Push, AsDirected emollients (Eucerin Cream) 30gm 1 nan, Topical, AsDirected glucagon recombinant 1 mg 1 mg 1 mL, Intramuscular, AsDirected glucose 4 gm Chewable 16 gram(s) 4 tab(s), Chewed, AsDirected glycerin adult Suppository 1 supp, Rectal, Daily magnesium hydroxide 8% Suspension 30 mL UD 30 mL, Nasogastric, q6h morphine 20 mg/mL Oral Conc 15 mL-WDLN /LTCH ONLY 5 mg 0.25 mL, Nasogastric, q4h polyethylene glycol 3350 - UD packet 17 gram(s) 15 mL, Nasogastric, qDay Review of Systems Constitutional: Denies weight changes fever or chills. Denies headache HEENT: Denies nystagmus and dizziness. Respiratory: Denies cough or congestion Cardiovascular: Denies chest pain, palpitations, uncontrolled blood pressure Gastrointestinal: Denies nausea with emesis. Genitourinary: Denies dysuria or urinary retention Neurological: Denies any cognitive deficits Musculoskeletal: Denies any joint or musculoskeletal pain Skin: Great anterior toe wound, ulcer to coccyx, and right lower extremity wound with dressings in place. There is no signs or symptoms of infection. Endocrine: Denies hot or cold intolerance. No hypoglycemia. Psychiatric: Denies changes in mental status. Allergic/immunologic: Denies environmental allergies or immune dysfunction Past Medical History: Morbid obesity Diabetes mellitus type 2 COPD Coronary artery disease Bipolar Hypertension Hyperlipidemia Obstructive sleep apnea with CPAP Bicuspid aortic stenosis Diastolic congestive heart failure Procedure/Surgical History: Lumbar fusion Bilateral carpal tunnel release Left shoulder surgery Nasal passage clearing for sleep apnea Open reduction internal fixation of right ankle The left ulnar nerve decompression Social History: Alcohol Details: Frequency: Denies Home/Environment Details: Domestic Concerns: None. Living situation: Lives with family, first- floor set up. 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 Safe place to go: Yes. Lives In: Single level home, 1st floor bedroom, 1st floor bathroom, laundry in basement. Current Home Treatments None. Professional Skilled Services or Special Community Resources None. Financial concerns: No. Marital Status: Nutrition/Health Details: Appetite Good. Sexual Details: Sexually active: Yes. Substance Abuse Details: Type: Denies any use Tobacco Details: Nicotine Use: Denies any Family History: Denies family history of known cardiovascular/pulmonary disease Allergies: Flonase Penicillin Code Status: Full code Physical Exam General appearance: Alert and oriented x 4, no acute distress. Sitting up in chair watching TV. Appears comfortable and does not appear in acute pain. Pleasant and cooperative. Good eye contact with flat affect. Dysarthria. Head: Normocephalic no evidence of trauma HEENT: Pupils equal and reactive to light and accommodation, no erythema. Ears with no external lesions or discharge. Nose clear, nares patent, no discharge. Throat normal healthy definition, no redness or erythema. NG to in place to right nare. Neck: Trachea midline. No lymphatic adenopathy Cardiac: Regular rate and rhythm, no rubs or murmurs Lungs: Lungs with bilateral rhonchi. Respirations unlabored on 2 L oxygen per nasal cannula. No cough, congestion, or conversational dyspnea. Abdomen: Soft, nontender, no organomegaly or rebound tenderness. Positive bowel sounds Musculoskeletal: Intact range of motion, no erythema, no polyarthric changes Extremities: +1 edema to the bilateral lower extremities. Neurological: Cranial nerves intact. No nystagmus. Dysarthria Skin: Great anterior toe wound, ulcer to coccyx, and right lower extremity wound with dressings in place. There is no signs or symptoms of infection. Psychiatric: Mood good. No anxiety or depression Vitals Signs(Last 24 hrs)__Last Charted Minimum Maximum Temp36.7(APR 08 00:33)36.7(APR 08 00:33)36.8(APR 07 18:00) Heart Rate76(APR 07 21:48)76(APR 07 21:48)76(APR 07 21:48) KJI234(APR 08 00:33)112(APR 08 00:33)132(APR 07 18:00) DBP60(APR 08 00:33)60(APR 07 18:00)60(APR 07 18:00) 36hr Labs 04/07 2138 Blood Glucose, [id number] Blood Glucose, [id number] Assessment/Plan - Aortic stenosis: Patient underwent elective AVR at [facility]. - CVA: Post extubation, patient developed dysarthria with left sided. weakness. CT brain revealed acute to subacute left MCA infarct. Repeat CT on 04/01/23 showed evolving left MCA infarct with tiny focus hemorrhagic. EEG revealed mild cortical dysfunction but negative for seizure activity. - Wound RLE: Patient s/p debridement of great anterior toe. Wound team consulted. - Ulcer: Patient's status postdebridement of coccyx ulcer. Atrial fibrillation: Patient went into atrial fibrillation postop on March 22. Amiodarone was added at this point. Dysphagia: PEG tube placed on March 23. Patient currently receiving Jevity tube feed via Corpak. Also on minced/moist mildly thickened oral diet. Speech therapy consulted. -Chronic back pain: CT of cervical spine revealed right neuroforaminal narrowing of the C6-7. Patient currently being treated with oxycodone and morphine PRN per pain management. Hypertension: Patient previously on losartan. This was discontinued secondary to hyperkalemia. Currently on amlodipine 5 mg daily. Blood pressures currently controlled and will continue to monitor trend. Edema of right upper extremity: Ultrasound revealed superficial thrombosis of the cephalic vein antecubital fossa to wrist as well as medial median cubital. - CHF: Patient currently on 40 mg of furosemide twice daily. Also receiving DuoNeb nebulized treatments 4 times a day scheduled. Due to rhonchorous lung sounds will repeat chest x-ray today. DVT prophylaxis: Patient currently on heparin therapy Diabetes type 2: Most recent A1c of 6.5%. Most recent glucose elevated at 234. Currently on Lantus 16 units daily, NPH insulin 38 units daily, and Humalog 5 units with meals plus as needed sliding scale. Will continue to closely monitor glucose levels. -Hyperlipidemia: Patiently currently on atorvastatin 10 mg daily. Obstructive sleep apnea: Patient currently on CPAP at bedtime. Condition complex, medically stable Post Admission Physician Evaluation Medical reconciliation performed. Old chart reviewed. Patient status on admission to rehab is medically stable but medically complex. Appropriate for admission to inpatient rehab facility due to need for 24-hour nursing and medical management in a hospital-based setting. Comparison with information on preadmission screening findings information to be consistent. Diagnoses to be monitored and treated include: Aortic stenosis, CVA, dysarthria, left-sided weakness, right lower extremity wound, coccyx ulcer, atrial fibrillation, dysphagia, chronic back pain, hypertension, right upper extremity SVT, congestive heart failure, diabetes mellitus type 2, hyperlipidemia, obstructive sleep apnea, thrush, neuropathy Rehabilitation physician to direct team staffing. See daily on rehabilitation rounds. Plan is for acute rehab with PT OT and speech-language therapy rehab nursing social work and nutrition for an acute interdisciplinary team rehab approach. Will work on gait training, ADLs, self-care, and strengthening, bowel and bladder program. DVT prophylaxis and medical management of comorbidities Medical Comorbidities at the Time of Admission Aortic stenosis CVA Dysarthria Left-sided weakness Right lower extremity wound Coccyx ulcer Atrial fibrillation Dysphagia Chronic back pain Hypertension SVT to the right upper extremity Congestive heart failure DVT prophylaxis Diabetes mellitus type 2 Hyperlipidemia Obstructive sleep apnea Bipolar Barriers to Discharge Functional medical impairments Consulting Physician Dr. Miner Estimated Length of Stay 2-3 weeks Medications reviewed and up to date Medications reviewed and up to date This document was transcribed using dictation software and may contain typographical errors. Jeannie Kirby RN, am scribing for, and in the presence of Reilly Melendrez APRN. Reilly Kirby APRN, personally performed the services described in this documentation, as scribed byJeannie RN in my presence and it is both accurate and complete. Leland Mckoy 02-24-2024 Note ORIGINAL EXAMINATION: ONE XRAY VIEW OF THE CHEST04/08/2023 11:34 am COMPARISON: None. HISTORY: ORDERING SYSTEM PROVIDED HISTORY: Reason for Exam: rhonchorous lung sounds FINDINGS: Cardiomegaly noted. Sternotomy wires are not well evaluated. Chest wall artifacts compromise the exam. It is difficult to exclude airspace disease in the lower lungs. No obvious pneumothorax. It is not possible to assess for small pleural effusions. No aggressive osseous lesions identified.Bony detail is suboptimal. IMPRESSION: The exam is compromised by body wall/chest wall artifacts. There are significant chest wall artifacts obscuring the lower lungs and it is not possible to assess for consolidation in these regions. Interpreted by: Kelvin Barton MD Preliminary Report By: Kelvin Barton MD Electronically signed By Kelvin Barton MD Dictated Date: 04/08/2023 11:43:51 AM Prelim Date: 04/08/2023 11:45:10 AM Sign Date: 04/08/2023 11:45:10 AM Ordering Provider: JESUS MANUEL Mckoy02-24-2024 Physical medicine and rehab History and physical note Acute Inpatient Rehab History and Physical Date of Service: 12/07/2023 Date of Admission: 12/06/2023 Attending Physician: Dr. Becerril [employer] 1.2 right body involved, left brain CVA Etiologic Diagnosis Left MCA infarct History of Present Illness This is a 62-year-old male admitted to [facility] inpatient rehab from [facility] for planned surgery AVR and ascending repair on 03/20. Patient did have a previous TIMOTEO in 2022 that showed severe aortic stenosis which is the reasoning for the AVR and ascending repair. Postsurgery and post extubation patient was noted to have dysarthria, left-sided weakness, and a right upper extremity weakness. CT of the head obtained showing a late acute to early or subacute infarct in the left MCA territory. Patient does have a wound to the right lower extremity is now status post debridement, also has a wound to the great anterior toe and coccyx ulcer. Stay was then complicated by postop atrial fibrillation on 03/22 and was initiated on p.o. amiodarone at 200 mg daily. Speech therapy evaluated patient was found to have dysphagia, he did require tube feed and Corpak placement, PEG tube placed on 03/23. He continues on Jevity 1.5 mary jane continuously at 50 mL an hour as well as 458 milliliters flush every 4 hours. Also on a minced and moist diet with mildly thick liquids. He has a longstanding history of chronic back pain and was seen by pain management during hospitalization and was placed on oxycodone however this has been since then discontinued. Patient has history of hypertension however losartan was discontinued due to hyperkalemia. CT obtained on 04/01 showing evolving left MCA territory infarct with tiny focus of petechial hemorrhage transformation. Patient reported right upper extremity weakness and CT of cervical spine was obtained showed severe right neural foraminal narrowing at C6-7. Neurology team was consulted and deemed there is no surgical intervention needed. EEG was also performed showing mild cortical dysfunction with left-sided hemiparesis, no seizure-like activity found. Due to the edema to the right upper extremity a Doppler was obtained showing SVT and cephalic vein antecubital fossa to the wrist as well as the median cubital vein. Patient became hypoxic's chest x-ray was performed showing pleural effusion and he did have some bilateral extremity edema was placed on initially a low-dose Lasix however is now at Lasix 40 mg twice daily. He does have ahistory of diabetes mellitus 2 and did have some hyperglycemia throughout his stay in the hospital.Was initiated on sliding scale insulin, hemoglobin A1c at 6.5%. Placed on heparin twice daily for DVT prophylaxis. He was deemed medically stable and transferred to [facility] inpatient rehab for physical and occupational therapy as well as medical supervision. Due to the fact that he had impairments of gait mobility ADLs and self-care and medical complexity,decision was made to admit her to the acute physical rehabilitation unit. Baseline functional status is independent Admit functional status currently at moderate to maximum assist. Today, patient is sitting up in chair watching TV. He denies any pain today on examination, he does have the as neededTylenol place for breakthrough pain as well as having the scheduled lidocaine patch. He denies any uncontrolled pain at this current time. He has about +1 edema to the bilateral extremities. Lungs with bilateral rhonchi. Respirations are unlabored on 2 L oxygen per nasal cannula. Denies any cough or congestion states breathing is comfortable. He denies any lightness, dizziness, headache with blood pressures 112/60 1 32/60. Denies any chest pain or chest pressure with heart rate ranging 76 79. He denies any glycemic reactions most recent blood sugar 234. Will monitoring blood sugars before meals and at bedtime. He nursing reports his bowels are moving and patient denies any urinary symptoms.He is reporting that he is tolerating his mechanically altered diet as well as the Corpak and PEG tube without any difficulties. Denies any nausea or vomiting. He has a follow-up CMP and CBC pending results for today Medications (40) Active Scheduled: (29) albuterol - ipratropium 2.5 mg-0.5 mg/3 mL Inhal Mattie UD 3 mL, Nebulized, QID amiodarone 200 mg tablet 200 mg 1 tab(s), Nasogastric, qDay amLODIPine 5 mg tablet 5 mg 1 tab(s), Nasogastric, qDay aspirin 81 mg Chewable 81 mg 1 tab(s), Nasogastric, Daily atorvastatin 10 mg tablet 10 mg 1 tab(s), Nasogastric, qHS budesonide 0.25 mg/2 mL Susp UD 0.25 mg 2 mL, Inhalation, qDayRT docusate 10 mg/mL Liq 10mL UD 100 mg 10 mL, Nasogastric, BID esomeprazole [address] capsule 40 mg 1 cap(s), Nasogastric, acBreakfast furosemide 40 mg tablet 40 mg 1 tab(s), Nasogastric, BID guaifenesin 100 mg/5 mL Liquid SUGAR-FREE 120 mL 200 mg 10 mL, Nasogastric, q6h heparin 5,000 units/mL (1 mL) vial 5,000 unit(s) 1 mL, Subcutaneous, q8h insulin glargine 16 unit(s) 0.16 mL, Subcutaneous (INT), acSupper insulin isophane human recombinant 100 units/ml (10 mL) Inj 38 unit(s) 0.38 mL, Subcutaneous, Daily insulin lispro 100 units/mL Soln (3 mL) Sliding Scale, Subcutaneous, TIDM insulin lispro 100 units/mL Soln (3 mL) 5 unit(s) 0.05 mL, Subcutaneous, TIDM lidocaine patch REMOVAL 1 EA, Miscellaneous, q24h lidocaine patch REMOVAL 1 EA, Miscellaneous, q24h lidocaine topical 4% patch 2 patch(es), Transdermal, qDay lidocaine topical 4% patch 1 patch(es), Topical, qDay metoprolol tartrate 25 mg tablet 37.5 mg 1.5 tab(s), Nasogastric, BID multivitamin (Myadec) with minerals Therapeutic Multiple Vitamins with Minerals Tablet 1 tab(s), Nasogastric, qDay nystatin susp 100,000 units/mL 5 mL UD 500,000 unit(s) 5 mL, Oral, QID ocular lubricant preserved Soln 15 mL 1 drop(s), Ophthalmic, TID ocular lubricant preserved Soln 15 mL 1 drop(s), Eyes, both, qHS polyethylene glycol 3350 - UD packet 17 gram(s) 15 mL, Nasogastric, Daily pregabalin 50 mg capsule 100 mg 2 cap(s), Nasogastric, BIDM pregabalin 50 mg capsule 200 mg 4 cap(s), Nasogastric, qHS senna 8.6 mg Tablet 8.6 mg 1 tab(s), Nasogastric, BID zinc oxide topical 20% Ointment 1 application, Topical, BID Continuous: (0) PRN: (11) acetaminophen 160 mg/5 mL Suspension 650 mg 20.31 mL, Nasogastric, q4h Al hydrox/Mg hydrox/simethicone 200-200-20 mg/5 mL Susp UD 30 mL, Oral, q6h albuterol 0.083% Soln UD (2.5mg/3 mL) 2.5 mg 3 mL, Inhalation, q4hRT dextrose 50% Solution Disp syringe 50 mL 12.5 gram(s) 25 mL, IV Push, AsDirected emollients (Eucerin Cream) 30gm 1 nan, Topical, AsDirected glucagon recombinant 1 mg 1 mg 1 mL, Intramuscular, AsDirected glucose 4 gm Chewable 16 gram(s) 4 tab(s), Chewed, AsDirected glycerin adult Suppository 1 supp, Rectal, Daily magnesium hydroxide 8% Suspension 30 mL UD 30 mL, Nasogastric, q6h morphine 20 mg/mL Oral Conc 15 mL-WDLN /LTCH ONLY 5 mg 0.25 mL, Nasogastric, q4h polyethylene glycol 3350 - UD packet 17 gram(s) 15 mL, Nasogastric, qDay Review of Systems Constitutional: Denies weight changes fever or chills. Denies headache HEENT: Denies nystagmus and dizziness. Respiratory: Denies cough or congestion Cardiovascular: Denies chest pain, palpitations, uncontrolled blood pressure Gastrointestinal: Denies nausea with emesis. Genitourinary: Denies dysuria or urinary retention Neurological: Denies any cognitive deficits Musculoskeletal: Denies any joint or musculoskeletal pain Skin: Great anterior toe wound, ulcer to coccyx, and right lower extremity wound with dressings in place. There is no signs or symptoms of infection. Endocrine: Denies hot or cold intolerance. No hypoglycemia. Psychiatric: Denies changes in mental status. Allergic/immunologic: Denies environmental allergies or immune dysfunction Past Medical History: Morbid obesity Diabetes mellitus type 2 COPD Coronary artery disease Bipolar Hypertension Hyperlipidemia Obstructive sleep apnea with CPAP Bicuspid aortic stenosis Diastolic congestive heart failure Procedure/Surgical History: Lumbar fusion Bilateral carpal tunnel release Left shoulder surgery Nasal passage clearing for sleep apnea Open reduction internal fixation of right ankle The left ulnar nerve decompression Social History: Alcohol Details: Frequency: Denies Home/Environment Details: Domestic Concerns: None. Living situation: Lives with family, first- floor set up. 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 Safe place to go: Yes. Lives In: Single level home, 1st floor bedroom, 1st floor bathroom, laundry in basement. Current Home Treatments None. Professional Skilled Services or SpecialCommunity Resources None. Financial concerns: No. Marital Status: Nutrition/Health Details: Appetite Good. Sexual Details: Sexually active: Yes. Substance Abuse Details: Type: Denies any use Tobacco Details: Nicotine Use: Denies any Family History: Denies family history of known cardiovascular/pulmonary disease Allergies: Flonase Penicillin Code Status: Full code Physical Exam General appearance: Alert and oriented x 4, no acute distress. Sitting up in chair watching TV. Appears comfortable and does not appear in acute pain. Pleasant and cooperative. Good eye contact with flat affect. Dysarthria. Head: Normocephalic no evidence of trauma HEENT: Pupils equal and reactive to light and accommodation, no erythema. Ears with no external lesions or discharge. Nose clear, nares patent, no discharge. Throat normal healthy definition, no redness or erythema. NG to in place to right nare. Neck: Trachea midline. No lymphatic adenopathy Cardiac: Regular rate and rhythm, no rubs or murmurs Lungs: Lungs with bilateral rhonchi. Respirations unlabored on 2 L oxygen per nasal cannula. No cough, congestion, or conversational dyspnea. Abdomen: Soft, nontender, no organomegaly or rebound tenderness. Positive bowel sounds Musculoskeletal: Intact range of motion, no erythema, no polyarthric changes Extremities: +1 edema to the bilateral lower extremities. Neurological: Cranial nerves intact. No nystagmus. Dysarthria Skin: Great anterior toe wound, ulcer to coccyx, and right lower extremity wound with dressings in place. There is no signs or symptoms of infection. Psychiatric: Mood good. No anxiety or depression Vitals Signs(Last 24 hrs)__Last Charted Minimum Maximum Temp36.7(APR 08 00:33)36.7(APR 08 00:33)36.8(APR 07 18:00) Heart Rate76(APR 07 21:48)76(APR 07 21:48)76(APR 07 21:48) BKH802(APR 08 00:33)112(APR 08 00:33)132(APR 07 18:00) DBP60(APR 08 00:33)60(APR 07 18:00)60(APR 07 18:00) 36hr Labs 04/07 2138 Blood Glucose, [id number] Blood Glucose, [id number] Assessment/Plan - Aortic stenosis: Patient underwent elective AVR at [facility]. - CVA: Post extubation, patient developed dysarthria with left sided. weakness. CT brain revealed acute to subacute left MCA infarct. Repeat CT on 04/01/23 showed evolving left MCA infarct with tiny focus hemorrhagic. EEG revealed mild cortical dysfunction but negative for seizure activity. - Wound RLE: Patient s/p debridement of great anterior toe. Wound team consulted. - Ulcer: Patient's status postdebridement of coccyx ulcer. Atrial fibrillation: Patient went into atrial fibrillation postop on March 22. Amiodarone was added at this point. Dysphagia: PEG tube placed on March 23. Patient currently receiving Jevity tube feed via Corpak. Also on minced/moist mildly thickened oral diet. Speech therapy consulted. -Chronic back pain: CT of cervical spine revealed right neuroforaminal narrowing of the C6-7. Patient currently being treated with oxycodone and morphine PRN per pain management. Hypertension: Patient previously on losartan. This was discontinued secondary to hyperkalemia. Currently on amlodipine 5 mg daily. Blood pressures currently controlled and will continue to monitor trend. Edema of right upper extremity: Ultrasound revealed superficial thrombosis of the cephalic vein antecubital fossa to wrist as well as medial median cubital. - CHF: Patient currently on 40 mg of furosemide twice daily. Also receiving DuoNeb nebulized treatments 4 times a day scheduled. Due to rhonchorous lung sounds will repeat chest x-ray today. DVT prophylaxis: Patient currently on heparin therapy Diabetes type 2: Most recent A1c of 6.5%. Most recent glucose elevated at 234. Currently on Lantus 16 units daily, NPH insulin 38 units daily, and Humalog 5 units with meals plus as needed sliding scale. Will continue to closely monitor glucose levels. -Hyperlipidemia: Patiently currently on atorvastatin 10 mg daily. Obstructive sleep apnea: Patient currently on CPAP at bedtime. Condition complex, medically stable Post Admission Physician Evaluation Medical reconciliation performed. Old chart reviewed. Patient status on admission to rehab is medically stable but medically complex. Appropriate for admission to inpatient rehab facility due to need for 24-hour nursing and medical management in a hospital-based setting. Comparison with information on preadmission screening findings information to be consistent. Diagnoses to be monitored and treated include: Aortic stenosis, CVA, dysarthria, left-sided weakness, right lower extremity wound, coccyx ulcer, atrial fibrillation, dysphagia, chronic back pain, hypertension, right upper extremity SVT, congestive heart failure, diabetes mellitus type 2, hyperlipidemia, obstructive sleep apnea, thrush, neuropathy Rehabilitation physician to direct team staffing. See daily on rehabilitation rounds. Plan is for acute rehab with PT OT and speech-language therapy rehab nursing social work and nutrition for an acute interdisciplinary team rehab approach. Will work on gait training, ADLs, self-care,and strengthening, bowel and bladder program. DVT prophylaxis and medical management of comorbidities Medical Comorbidities at the Time of Admission Aortic stenosis CVA Dysarthria Left-sided weakness Right lower extremity wound Coccyx ulcer Atrial fibrillation Dysphagia Chronic back pain Hypertension SVT to the right upper extremity Congestive heart failure DVT prophylaxis Diabetes mellitus type 2 Hyperlipidemia Obstructive sleep apnea Bipolar Barriers to Discharge Functional medical impairments Consulting Physician Dr. Miner Estimated Length of Stay 2-3 weeks Medications reviewed and up to date Medications reviewed and up to date This document was transcribed using dictation software and may contain typographical errors. Jeannie Kirby RN, am scribing for, and in the presence of Reilly Melendrez APRN. Reilly Kirby APRN, personally performed the services described in this documentation, as scribed byJeannie RN in my presence and it is both accurate and complete. Digitally Signed by JESUS MANUEL MELENDREZ APRN-TODD on 04/08/2023 01:03 PM Leland [id number] History of Past illness Narrative* Problem Noted Date Diagnosed Date Resolved Date Acute respiratory insufficiency 03/22/2023 03/25/2023 Thrombocytopenia 03/22/2023 03/25/2023 Overview: Platelet Count Date Value Ref Range Status 03/22/2023 109 (L) 150 - 400 k/uL Final On mechanically assisted ventilation 03/20/2023 03/22/2023 Lactic acidosis 03/20/2023 03/21/2023 Pre-op testing 03/16/2023 03/27/2023 [facility] PRE[facility] CHECK[facility] Surgeon: Shlomo Alcocer MD Intended procedure: AVR/Asc Informed Consent Completed: Yes STS Score: CAD: Yes - CAD on Problem List: No Is intended procedure a CABG: No - is a beta maren ordered? No - reason: taking carvedilol H & P completed: Yes PA/LAT: Pending report CT: Completed MRI: N/A LE US: Completed Cath: Yes - reviewed: Yes EKG: Completed Is patient on Amiodarone? No Echo:Completed EF %: 55 PI's: N/A Carotid: Completed Mapping: N/A Dental: Cleared PFT's: Completed UA: negative HCG:N/A ABO/ABO Confirmed: Yes Blood ordered: No Willing to accept blood: Yes SA Swab: Yes - results: negative Last Dose of Anticoagulation: Anticoagulant & Antiplatelet Medications Patient Encounter Information Not Found Op Note: No Pacer Check: NA Implants: yes: lumbar spinal fusion Consults: DM: Yes A1C 6.5 Cardiac Surgical prep: No SIGNATURE: Lilia Hayden RN DATE of SERVICE: 03/16/2023 TIME of SERVICE: 7:41 AM CHECKED BY: HM Tendinitis of left wrist 05/14/201308/2022 Atrial septal defect and mitral stenosis 11/30/2012 documented as of this encounter (statuses as of 04/13/2023) [facility]02-07-2024 History of Past illness Narrative* Problem Noted Date Diagnosed Date Resolved Date Acute respiratory insufficiency 03/22/2023 03/25/2023 Thrombocytopenia 03/22/2023 03/25/2023 Overview: Platelet Count Date Value Ref Range Status 03/22/2023 109 (L) 150 - 400 k/uL Final On mechanically assisted ventilation 03/20/2023 03/22/2023 Lactic acidosis 03/20/2023 03/21/2023 Pre-op testing 03/16/2023 03/27/2023 Overview: [facility] PRE-OP CHECKLIST Surgeon: Shlomo Alcocer MD Intended procedure: AVR/Asc Informed Consent Completed: Yes STS Score: CAD: Yes - CAD on Problem List: No Is intended procedure a CABG: No - is a beta maren ordered? No - reason: taking carvedilol H & P completed: Yes PA/LAT: Pending report CT: Completed MRI: N/A LE US: Completed Cath: Yes - reviewed: Yes EKG: Completed Is patient on Amiodarone? No Echo:Completed EF %: 55 PI's: N/A Carotid: Completed Mapping: N/A Dental: Cleared PFT's: Completed UA: negative HCG:N/A ABO/ABO Confirmed: Yes Blood ordered: No Willing to accept blood: Yes SA Swab: Yes - results: negative Last Dose of Anticoagulation: Anticoagulant & Antiplatelet Medications Patient Encounter Information Not Found Op Note: No Pacer Check: NA Implants: yes: lumbar spinal fusion Consults: DM: Yes A1C 6.5 Cardiac Surgical prep: No SIGNATURE: Lilia Hayden RN DATE of SERVICE: 03/16/2023 TIME of SERVICE: 7:41 AM CHECKED BY: HM Tendinitis of left wrist 05/14/201308/2022 Atrial septal defect and mitral stenosis 11/30/2012 documented as of this encounter (statuses as of 04/24/2023) [facility]02-07-2024 History of Past illness Narrative* Problem Noted Date Diagnosed Date Resolved Date Acute respiratory insufficiency 03/22/2023 03/25/2023 Thrombocytopenia 03/22/2023 03/25/2023 Overview: Platelet Count Date Value Ref Range Status 03/22/2023 109 (L) 150 - 400 k/uL Final On mechanically assisted ventilation 03/20/2023 03/22/2023 Lactic acidosis 03/20/2023 03/21/2023 Pre-op testing 03/16/2023 03/27/2023 Overview: [facility] PRE-OP CHECKLIST Surgeon: Shlomo Alcocer MD Intended procedure: AVR/Asc Informed Consent Completed: Yes STS Score: CAD: Yes - CAD on Problem List: No Is intended procedure a CABG: No - is a beta maren ordered? No - reason: taking carvedilol H & P completed: Yes PA/LAT: Pending report CT: Completed MRI: N/A LE US: Completed Cath: Yes - reviewed: Yes EKG: Completed Is patient on Amiodarone? No Echo:Completed EF %: 55 PI's: N/A Carotid: Completed Mapping: N/A Dental: Cleared PFT's: Completed UA: negative HCG:N/A ABO/ABO Confirmed: Yes Blood ordered: No Willing to accept blood: Yes SA Swab: Yes - results: negative Last Dose of Anticoagulation: Anticoagulant & Antiplatelet Medications Patient Encounter Information Not Found Op Note: No Pacer Check: NA Implants: yes: lumbar spinal fusion Consults: DM: Yes A1C 6.5 Cardiac Surgical prep: No SIGNATURE: Lilia Hayden RN DATE of SERVICE: 03/16/2023 TIME of SERVICE: 7:41 AM CHECKED BY: COSTA Tendinitis of left wrist 05/14/201308/2022 Atrial septal defect and mitral stenosis 11/30/2012 documented as of this encounter (statuses as of 05/02/2023) [facility]02-07-2024 History of Past illness Narrative* Problem Noted Date Diagnosed Date Resolved Date Acute respiratory insufficiency 03/22/2023 03/25/2023 Thrombocytopenia 03/22/2023 03/25/2023 Overview: Platelet Count Date Value Ref Range Status 03/22/2023 109 (L) 150 - 400 k/uL Final On mechanically assisted ventilation 03/20/2023 03/22/2023 Lactic acidosis 03/20/2023 03/21/2023 Pre-op testing 03/16/2023 03/27/2023 Overview: [facility] PRE-OP CHECKLIST Surgeon: Shlomo Alcocer MD Intended procedure: AVR/Asc Informed Consent Completed: Yes STS Score: CAD: Yes - CAD on Problem List: No Is intended procedure a CABG: No - is a beta maren ordered? No - reason: taking carvedilol H & P completed: Yes PA/LAT: Pending report CT: Completed MRI: N/A LE US: Completed Cath: Yes - reviewed: Yes EKG: Completed Is patient on Amiodarone? No Echo:Completed EF %: 55 PI's: N/A Carotid: Completed Mapping: N/A Dental: Cleared PFT's: Completed UA: negative HCG:N/A ABO/ABO Confirmed: Yes Blood ordered: No Willing to accept blood: Yes SA Swab: Yes - results: negative Last Dose of Anticoagulation: Anticoagulant & Antiplatelet Medications Patient Encounter Information Not Found Op Note: No Pacer Check: NA Implants: yes: lumbar spinal fusion Consults: DM: Yes A1C 6.5 Cardiac Surgical prep: No SIGNATURE: Lilia Hayden RN DATE of SERVICE: 03/16/2023 TIME of SERVICE: 7:41 AM CHECKED BY: COSTA Tendinitis of left wrist 05/14/201308/2022 Atrial septal defect and mitral stenosis 11/30/2012 documented as of this encounter (statuses as of 05/19/2023) [facility]02-07-2024 History of Past illness Narrative* Problem Noted Date Diagnosed Date Resolved Date Acute respiratory insufficiency 03/22/2023 03/25/2023 Thrombocytopenia 03/22/2023 03/25/2023 Overview: Platelet Count Date Value Ref Range Status 03/22/2023 109 (L) 150 - 400 k/uL Final On mechanically assisted ventilation 03/20/2023 03/22/2023 Lactic acidosis 03/20/2023 03/21/2023 Pre-op testing 03/16/2023 03/27/2023 Overview: [facility] PRE-OP CHECKLIST Surgeon: Shlomo Alcocer MD Intended procedure: AVR/Asc Informed Consent Completed: Yes STS Score: CAD: Yes - CAD on Problem List: No Is intended procedure a CABG: No - is a beta maren ordered? No - reason: taking carvedilol H & P completed: Yes PA/LAT: Pending report CT: Completed MRI: N/A LE US: Completed Cath: Yes - reviewed: Yes EKG: Completed Is patient on Amiodarone? No Echo:Completed EF %: 55 PI's: N/A Carotid: Completed Mapping: N/A Dental: Cleared PFT's: Completed UA: negative HCG:N/A ABO/ABO Confirmed: Yes Blood ordered: No Willing to accept blood: Yes SA Swab: Yes - results: negative Last Dose of Anticoagulation: Anticoagulant & Antiplatelet Medications Patient Encounter Information Not Found Op Note: No Pacer Check: NA Implants: yes: lumbar spinal fusion Consults: DM: Yes A1C 6.5 Cardiac Surgical prep: No SIGNATURE: Lilia Hayedn RN DATE of SERVICE: 03/16/2023 TIME of SERVICE: 7:41 AM CHECKED BY: COSTA Tendinitis of left wrist 05/14/201308/2022 Atrial septal defect and mitral stenosis 11/30/2012 documented as of this encounter (statuses as of 05/22/2023) [facility]02-07-2024 History of Past illness Narrative* Problem Noted Date Diagnosed Date Resolved Date Acute respiratory insufficiency 03/22/2023 03/25/2023 Thrombocytopenia 03/22/2023 03/25/2023 Overview: Platelet Count Date Value Ref Range Status 03/22/2023 109 (L) 150 - 400 k/uL Final On mechanically assisted ventilation 03/20/2023 03/22/2023 Lactic acidosis 03/20/2023 03/21/2023 Pre-op testing 03/16/2023 03/27/2023 Overview[facility] PRE[facility] Surgeon: Shlomo Alcocer MD Intended procedure: AVR/Asc Informed Consent Completed: Yes STS Score: CAD: Yes - CAD on Problem List: No Is intended procedure a CABG: No - is a beta maren ordered? No - reason: taking carvedilol H & P completed: Yes PA/LAT: Pending report CT: Completed MRI: N/A LE US: Completed Cath: Yes - reviewed: Yes EKG: Completed Is patient on Amiodarone? No Echo:Completed EF %: 55 PI's: N/A Carotid: Completed Mapping: N/A Dental: Cleared PFT's: Completed UA: negative HCG:N/A ABO/ABO Confirmed: Yes Blood ordered: No Willing to accept blood: Yes SA Swab: Yes - results: negative Last Dose of Anticoagulation: Anticoagulant & Antiplatelet Medications Patient Encounter Information Not Found Op Note: No Pacer Check: NA Implants: yes: lumbar spinal fusion Consults: DM: Yes A1C 6.5 Cardiac Surgical prep: No SIGNATURE: Lilia Hayden RN DATE of SERVICE: 03/16/2023 TIME of SERVICE: 7:41 AM CHECKED BY: COSTA Tendinitis of left wrist 05/14/201308/2022 Atrial septal defect and mitral stenosis 11/30/2012 documented as of this encounter (statuses as of 05/22/2023) [facility]07[facility]24 History of Past illness Narrative* Problem Noted Date Diagnosed Date Resolved Date Acute respiratory insufficiency 03/22/2023 03/25/2023 Thrombocytopenia 03/22/2023 03/25/2023 Overview: Platelet Count Date Value Ref Range Status 03/22/2023 109 (L) 150 - 400 k/uL Final On mechanically assisted ventilation 03/20/2023 03/22/2023 Lactic acidosis 03/20/2023 03/21/2023 Pre-op testing 03/16/2023 03/27/2023 Overview: [facility] Surgeon: Shlomo Alcocer MD Intended procedure: AVR/Asc Informed Consent Completed: Yes STS Score: CAD: Yes - CAD on Problem List: No Is intended procedure a CABG: No - is a beta maren ordered? No - reason: taking carvedilol H & P completed: Yes PA/LAT: Pending report CT: Completed MRI: N/A LE US: Completed Cath: Yes - reviewed: Yes EKG: Completed Is patient on Amiodarone? No Echo:Completed EF %: 55 PI's: N/A Carotid: Completed Mapping: N/A Dental: Cleared PFT's: Completed UA: negative HCG:N/A ABO/ABO Confirmed: Yes Blood ordered: No Willing to accept blood: Yes SA Swab: Yes - results: negative Last Dose of Anticoagulation: Anticoagulant & Antiplatelet Medications Patient Encounter Information Not Found Op Note: No Pacer Check: NA Implants: yes: lumbar spinal fusion Consults: DM: Yes A1C 6.5 Cardiac Surgical prep: No SIGNATURE: Lilia Hayden RN DATE of SERVICE: 03/16/2023 TIME of SERVICE: 7:41 AM CHECKED BY: COSTA Tendinitis of left wrist 05/14/201308/2022 Atrial septal defect and mitral stenosis 11/30/2012 documented as of this encounter (statuses as of 05/24/2023) [facility] History of Past illness Narrative* Problem Noted Date Diagnosed Date Resolved Date Acute respiratory insufficiency 03/22/2023 03/25/2023 Thrombocytopenia 03/22/2023 03/25/2023 Overview: Platelet Count Date Value Ref Range Status 03/22/2023 109 (L) 150 - 400 k/uL Final On mechanically assisted ventilation 03/20/2023 03/22/2023 Lactic acidosis 03/20/2023 03/21/2023 Pre-op testing 03/16/2023 03/27/2023 Overview: [facility] Surgeon: Shlomo Alcocer MD Intended procedure: AVR/Asc Informed Consent Completed: Yes STS Score: CAD: Yes - CAD on Problem List: No Is intended procedure a CABG: No - is a beta maren ordered? No - reason: taking carvedilol H & P completed: Yes PA/LAT: Pending report CT: Completed MRI: N/A LE US: Completed Cath: Yes - reviewed: Yes EKG: Completed Is patient on Amiodarone? No Echo:Completed EF %: 55 PI's: N/A Carotid: Completed Mapping: N/A Dental: Cleared PFT's: Completed UA: negative HCG:N/A ABO/ABO Confirmed: Yes Blood ordered: No Willing to accept blood: Yes SA Swab: Yes - results: negative Last Dose of Anticoagulation: Anticoagulant & Antiplatelet Medications Patient Encounter Information Not Found Op Note: No Pacer Check: NA Implants: yes: lumbar spinal fusion Consults: DM: Yes A1C 6.5 Cardiac Surgical prep: No SIGNATURE: Lilia Hayden RN DATE of SERVICE: 03/16/2023 TIME of SERVICE: 7:41 AM CHECKED BY: HM Tendinitis of left wrist 05/14/201308/2022 Atrial septal defect and mitral stenosis 11/30/2012 documented as of this encounter (statuses as of 05/24/2023) [facility] History of Past illness Narrative* Problem Noted Date Diagnosed Date Resolved Date Acute respiratory insufficiency 03/22/2023 03/25/2023 Thrombocytopenia 03/22/2023 03/25/2023 Overview: Platelet Count Date Value Ref Range Status 03/22/2023 109 (L) 150 - 400 k/uL Final On mechanically assisted ventilation 03/20/2023 03/22/2023 Lactic acidosis 03/20/2023 03/21/2023 Pre-op testing 03/16/2023 03/27/2023 Overview: [facility] Surgeon: Shlomo Alcocer MD Intended procedure: AVR/Asc Informed Consent Completed: Yes STS Score: CAD: Yes - CAD on Problem List: No Is intended procedure a CABG: No - is a beta maren ordered? No - reason: taking carvedilol H & P completed: Yes PA/LAT: Pending report CT: Completed MRI: N/A LE US: Completed Cath: Yes - reviewed: Yes EKG: Completed Is patient on Amiodarone? No Echo:Completed EF %: 55 PI's: N/A Carotid: Completed Mapping: N/A Dental: Cleared PFT's: Completed UA: negative HCG:N/A ABO/ABO Confirmed: Yes Blood ordered: No Willing to accept blood: Yes SA Swab: Yes - results: negative Last Dose of Anticoagulation: Anticoagulant & Antiplatelet Medications Patient Encounter Information Not Found Op Note: No Pacer Check: NA Implants: yes: lumbar spinal fusion Consults: DM: Yes A1C 6.5 Cardiac Surgical prep: No SIGNATURE: Lilia Hayden RN DATE of SERVICE: 03/16/2023 TIME of SERVICE: 7:41 AM CHECKED BY: HM Tendinitis of left wrist 05/14/201308/2022 Atrial septal defect and mitral stenosis 11/30/2012 documented as of this encounter (statuses as of 05/24/2023) [facility] History of Past illness Narrative* Problem Noted Date Diagnosed Date Resolved Date Acute respiratory insufficiency 03/22/2023 03/25/2023 Thrombocytopenia 03/22/2023 03/25/2023 Overview: Platelet Count Date Value Ref Range Status 03/22/2023 109 (L) 150 - 400 k/uL Final On mechanically assisted ventilation 03/20/2023 03/22/2023 Lactic acidosis 03/20/2023 03/21/2023 Pre-op testing 03/16/2023 03/27/2023 Overview: [facility] Surgeon: Shlomo Alcocer MD Intended procedure: AVR/Asc Informed Consent Completed: Yes STS Score: CAD: Yes - CAD on Problem List: No Is intended procedure a CABG: No - is a beta maren ordered? No - reason: taking carvedilol H & P completed: Yes PA/LAT: Pending report CT: Completed MRI: N/A LE US: Completed Cath: Yes - reviewed: Yes EKG: Completed Is patient on Amiodarone? No Echo:Completed EF %: 55 PI's: N/A Carotid: Completed Mapping: N/A Dental: Cleared PFT's: Completed UA: negative HCG:N/A ABO/ABO Confirmed: Yes Blood ordered: No Willing to accept blood: Yes SA Swab: Yes - results: negative Last Dose of Anticoagulation: Anticoagulant & Antiplatelet Medications Patient Encounter Information Not Found Op Note: No Pacer Check: NA Implants: yes: lumbar spinal fusion Consults: DM: Yes A1C 6.5 Cardiac Surgical prep: No SIGNATURE: Lilia Hayden RN DATE of SERVICE: 03/16/2023 TIME of SERVICE: 7:41 AM CHECKED BY: HM Tendinitis of left wrist 05/14/201308/2022 Atrial septal defect and mitral stenosis 11/30/2012 documented as of this encounter (statuses as of 05/25/2023) [facility] History of Past illness Narrative* Problem Noted Date Diagnosed Date Resolved Date Acute respiratory insufficiency 03/22/2023 03/25/2023 Thrombocytopenia 03/22/2023 03/25/2023 Overview: Platelet Count Date Value Ref Range Status 03/22/2023 109 (L) 150 - 400 k/uL Final On mechanically assisted ventilation 03/20/2023 03/22/2023 Lactic acidosis 03/20/2023 03/21/2023 Pre-op testing 03/16/2023 03/27/2023 Overview: [facility] Surgeon: Shlomo Alcocer MD Intended procedure: AVR/Asc Informed Consent Completed: Yes STS Score: CAD: Yes - CAD on Problem List: No Is intended procedure a CABG: No - is a beta maren ordered? No - reason: taking carvedilol H & P completed: Yes PA/LAT: Pending report CT: Completed MRI: N/A LE US: Completed Cath: Yes - reviewed: Yes EKG: Completed Is patient on Amiodarone? No Echo:Completed EF %: 55 PI's: N/A Carotid: Completed Mapping: N/A Dental: Cleared PFT's: Completed UA: negative HCG:N/A ABO/ABO Confirmed: Yes Blood ordered: No Willing to accept blood: Yes SA Swab: Yes - results: negative Last Dose of Anticoagulation: Anticoagulant & Antiplatelet Medications Patient Encounter Information Not Found Op Note: No Pacer Check: NA Implants: yes: lumbar spinal fusion Consults: DM: Yes A1C 6.5 Cardiac Surgical prep: No SIGNATURE: Lilia Hayden RN DATE of SERVICE: 03/16/2023 TIME of SERVICE: 7:41 AM CHECKED BY: HM Tendinitis of left wrist 05/14/201308/2022 Atrial septal defect and mitral stenosis 11/30/2012 documented as of this encounter (statuses as of 05/25/2023) [facility] History of Past illness Narrative* Problem Noted Date Diagnosed Date Resolved Date Acute respiratory insufficiency 03/22/2023 03/25/2023 Thrombocytopenia 03/22/2023 03/25/2023 Overview: Platelet Count Date Value Ref Range Status 03/22/2023 109 (L) 150 - 400 k/uL Final On mechanically assisted ventilation 03/20/2023 03/22/2023 Lactic acidosis 03/20/2023 03/21/2023 Pre-op testing 03/16/2023 03/27/2023 Overview: [facility] CHECK[facility] Surgeon: Shlomo Alcocer MD Intended procedure: AVR/Asc Informed Consent Completed: Yes STS Score: CAD: Yes - CAD on Problem List: No Is intended procedure a CABG: No - is a beta maren ordered? No - reason: taking carvedilol H & P completed: Yes PA/LAT: Pending report CT: Completed MRI: N/A LE US: Completed Cath: Yes - reviewed: Yes EKG: Completed Is patient on Amiodarone? No Echo:Completed EF %: 55 PI's: N/A Carotid: Completed Mapping: N/A Dental: Cleared PFT's: Completed UA: negative HCG:N/A ABO/ABO Confirmed: Yes Blood ordered: No Willing to accept blood: Yes SA Swab: Yes - results: negative Last Dose of Anticoagulation: Anticoagulant & Antiplatelet Medications Patient Encounter Information Not Found Op Note: No Pacer Check: NA Implants: yes: lumbar spinal fusion Consults: DM: Yes A1C 6.5 Cardiac Surgical prep: No SIGNATURE: Lilia Hayden RN DATE of SERVICE: 03/16/2023 TIME of SERVICE: 7:41 AM CHECKED BY: COSTA Tendinitis of left wrist 05/14/201308/2022 Atrial septal defect and mitral stenosis 11/30/2012 documented as of this encounter (statuses as of 05/25/2023) [facility] History of Past illness Narrative* Problem Noted Date Diagnosed Date Resolved Date Acute respiratory insufficiency 03/22/2023 03/25/2023 Thrombocytopenia 03/22/2023 03/25/2023 Overview: Platelet Count Date Value Ref Range Status 03/22/2023 109 (L) 150 - 400 k/uL Final On mechanically assisted ventilation 03/20/2023 03/22/2023 Lactic acidosis 03/20/2023 03/21/2023 Pre-op testing 03/16/2023 03/27/2023 Overview: [facility] Surgeon: Shlomo Alcocer MD Intended procedure: AVR/Asc Informed Consent Completed: Yes STS Score: CAD: Yes - CAD on Problem List: No Is intended procedure a CABG: No - is a beta maren ordered? No - reason: taking carvedilol H & P completed: Yes PA/LAT: Pending report CT: Completed MRI: N/A LE US: Completed Cath: Yes - reviewed: Yes EKG: Completed Is patient on Amiodarone? No Echo:Completed EF %: 55 PI's: N/A Carotid: Completed Mapping: N/A Dental: Cleared PFT's: Completed UA: negative HCG:N/A ABO/ABO Confirmed: Yes Blood ordered: No Willing to accept blood: Yes SA Swab: Yes - results: negative Last Dose of Anticoagulation: Anticoagulant & Antiplatelet Medications Patient Encounter Information Not Found Op Note: No Pacer Check: NA Implants: yes: lumbar spinal fusion Consults: DM: Yes A1C 6.5 Cardiac Surgical prep: No SIGNATURE: Lilia Hayden RN DATE of SERVICE: 03/16/2023 TIME of SERVICE: 7:41 AM CHECKED BY: COSTA Tendinitis of left wrist 05/14/201308/2022 Atrial septal defect and mitral stenosis 11/30/2012 documented as of this encounter (statuses as of 05/26/2023) [facility] History of Past illness Narrative* Problem Noted Date Diagnosed Date Resolved Date Acute respiratory insufficiency 03/22/2023 03/25/2023 Thrombocytopenia 03/22/2023 03/25/2023 Overview: Platelet Count Date Value Ref Range Status 03/22/2023 109 (L) 150 - 400 k/uL Final On mechanically assisted ventilation 03/20/2023 03/22/2023 Lactic acidosis 03/20/2023 03/21/2023 Pre-op testing 03/16/2023 03/27/2023 Overview: [facility] CHECK[facility] Surgeon: Shlomo Alcocer MD Intended procedure: AVR/Asc Informed Consent Completed: Yes STS Score: CAD: Yes - CAD on Problem List: No Is intended procedure a CABG: No - is a beta maren ordered? No - reason: taking carvedilol H & P completed: Yes PA/LAT: Pending report CT: Completed MRI: N/A LE US: Completed Cath: Yes - reviewed: Yes EKG: Completed Is patient on Amiodarone? No Echo:Completed EF %: 55 PI's: N/A Carotid: Completed Mapping: N/A Dental: Cleared PFT's: Completed UA: negative HCG:N/A ABO/ABO Confirmed: Yes Blood ordered: No Willing to accept blood: Yes SA Swab: Yes - results: negative Last Dose of Anticoagulation: Anticoagulant & Antiplatelet Medications Patient Encounter Information Not Found Op Note: No Pacer Check: NA Implants: yes: lumbar spinal fusion Consults: DM: Yes A1C 6.5 Cardiac Surgical prep: No SIGNATURE: Lilia Hayden RN DATE of SERVICE: 03/16/2023 TIME of SERVICE: 7:41 AM CHECKED BY: COSTA Tendinitis of left wrist 05/14/201308/2022 Atrial septal defect and mitral stenosis 11/30/2012 documented as of this encounter (statuses as of 05/29/2023) [facility] History of Past illness Narrative* Problem Noted Date Diagnosed Date Resolved Date Acute respiratory insufficiency 03/22/2023 03/25/2023 Thrombocytopenia 03/22/2023 03/25/2023 Overview: Platelet Count Date Value Ref Range Status 03/22/2023 109 (L) 150 - 400 k/uL Final On mechanically assisted ventilation 03/20/2023 03/22/2023 Lactic acidosis 03/20/2023 03/21/2023 Pre-op testing 03/16/2023 03/27/2023 Overview: [facility] CHECK[facility] Surgeon: Shlomo Alcocer MD Intended procedure: AVR/Asc Informed Consent Completed: Yes STS Score: CAD: Yes - CAD on Problem List: No Is intended procedure a CABG: No - is a beta maren ordered? No - reason: taking carvedilol H & P completed: Yes PA/LAT: Pending report CT: Completed MRI: N/A LE US: Completed Cath: Yes - reviewed: Yes EKG: Completed Is patient on Amiodarone? No Echo:Completed EF %: 55 PI's: N/A Carotid: Completed Mapping: N/A Dental: Cleared PFT's: Completed UA: negative HCG:N/A ABO/ABO Confirmed: Yes Blood ordered: No Willing to accept blood: Yes SA Swab: Yes - results: negative Last Dose of Anticoagulation: Anticoagulant & Antiplatelet Medications Patient Encounter Information Not Found Op Note: No Pacer Check: NA Implants: yes: lumbar spinal fusion Consults: DM: Yes A1C 6.5 Cardiac Surgical prep: No SIGNATURE: Lilia Hayden RN DATE of SERVICE: 03/16/2023 TIME of SERVICE: 7:41 AM CHECKED BY: COSTA Tendinitis of left wrist 05/14/201308/2022 Atrial septal defect and mitral stenosis 11/30/2012 documented as of this encounter (statuses as of 05/30/2023) [facility] History of Past illness Narrative* Problem Noted Date Diagnosed Date Resolved Date Acute respiratory insufficiency 03/22/2023 03/25/2023 Thrombocytopenia 03/22/2023 03/25/2023 Overview: Platelet Count Date Value Ref Range Status 03/22/2023 109 (L) 150 - 400 k/uL Final On mechanically assisted ventilation 03/20/2023 03/22/2023 Lactic acidosis 03/20/2023 03/21/2023 Pre-op testing 03/16/2023 03/27/2023 Overview: [facility] PRE-OP CHECKLIST Surgeon: Shlomo Alcocer MD Intended procedure: AVR/Asc Informed Consent Completed: Yes STS Score: CAD: Yes - CAD on Problem List: No Is intended procedure a CABG: No - is a beta maren ordered? No - reason: taking carvedilol H & P completed: Yes PA/LAT: Pending report CT: Completed MRI: N/A LE US: Completed Cath: Yes - reviewed: Yes EKG: Completed Is patient on Amiodarone? No Echo:Completed EF %: 55 PI's: N/A Carotid: Completed Mapping: N/A Dental: Cleared PFT's: Completed UA: negative HCG:N/A ABO/ABO Confirmed: Yes Blood ordered: No Willing to accept blood: Yes SA Swab: Yes - results: negative Last Dose of Anticoagulation: Anticoagulant & Antiplatelet Medications Patient Encounter Information Not Found Op Note: No Pacer Check: NA Implants: yes: lumbar spinal fusion Consults: DM: Yes A1C 6.5 Cardiac Surgical prep: No SIGNATURE: Lilia Hayden RN DATE of SERVICE: 03/16/2023 TIME of SERVICE: 7:41 AM CHECKED BY: COSTA Tendinitis of left wrist 05/14/201308/2022 Atrial septal defect and mitral stenosis 11/30/2012 documented as of this encounter (statuses as of 06/02/2023) [facility] Miscellaneous Notes* Telephone Encounter - July Perez LPN - 03/21/2023 2:07 PM EST Detailed VM left on pt's identified voicemail of information below. July Perez LPN * Telephone Encounter - Bhavani Juan RN - 03/18/2023 8:02 AM EST LM for pt to return call * Telephone Encounter - Bhavani Juan RN - 03/18/2023 8:01 AM EST ----- Message from Angela Schmid APRN.GUEST HISTORY CLERK sent at 03/17/2023 11:37 AM EST ----- Can please let patient know that repeat labs are improved. Angela Schmid APRN.GUEST HISTORY CLERK [facility] History of Past illness Narrative* Problem Noted Date Diagnosed Date Resolved Date Lactic acidosis 03/20/2023 03/21/2023 Tendinitis of left wrist 05/14/201308/2022 Atrial septal defect and mitral stenosis 11/30/2012 documented as of this encounter (statuses as of 03/22/2023) [facility] Miscellaneous Notes* Telephone Encounter - Lilia Parker RN - 03/19/2023 5:31 PM EST Patient calling regarding medication problem. Scheduled for cardiac surgery tomorrow, 03/20. Patient accidentally took Losartan this evening which he was previously told to hold prior to surgery. Conferenced to [facility] splitter operator, Ivy, to speak with provider airconditioning engineer for CTS, patient of Dr. Alcocer. [facility] History of Present illness Narrative* Lilia Hayden RN - 03/16/2023 3:37 PM EST AMBULATORY PATIENT EDUCATION READINESS TO LEARN Cognitive Ability: Alert and oriented Motivation To Learn: Interested Family Support: High - Very involved in pt care Instruction Provided To: Patient & Family Patient Learns Best By: Multiple Methods Factors Affecting Learning: None Physical Limitations Affecting Learning: None LEARNING RESPONSE Diagnosis: /AAA Education Topic: Pre-Op Open Heart Surgery Instructions Teaching Points: Logistics / Protocols /Complication Prevention How prepared do you feel you are for this visit: 5 Instruction/Supplemental Materials: Cardiac Surgery Information Binder Individual Instruction Patient/Family Response: Somewhat Follow up plan: Patient/Family to call [facility] with any further questions Referral (Recommendation): None Teach completed, topic: Patient provided with Cardiac Surgery binder and reviewed. Patient educatedon pre-operative instructions and advised to call [facility] with any further questions [facility] History of Present illness Narrative* Scarlet Martin MD - 03/16/2023 2:39 PM EST Cardiothoracic Anesthesiology Preoperative Assessment Service Date: 03/16/2023 Service Time: 2:39 PM Primary Care Physician: Alyson Arthur MD Subjective Patient Entered Data: Pt presents for preoperative evaluation prior to Mini AVR/ascending. Surgical HPI Mr. Catherine is a 62 year old male current smoker 1 pack/day with past medical history as listed including morbid obesity with BMI of 52, DM type II, COPD, coronary artery disease, bipolar 1 disorder,hypertension, hyperlipidemia, MANISH on CPAP, and pain management for back pain with known bicuspid aortic stenosis initially followed by Dr. Montgomery in [place] and transitioned to care in [place] with ourcardiology team. He had a recent TTE on 09/30/2022, and though the images are poor due to body habitus he did have findings of severe aortic stenosis with peak gradient of 76, mean gradient 39 DI 0.23, and aortic valve area of 1.0. He was recently admitted to [facility] for a blister on the anterior right [...] a bicuspid, Alec type 0, aortic valve withsevere calcification with a calcium score of 3300. 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 The patient also saw a personal secretary who debrided his noninfected right tibial wound and ordered PVRs, which are pending. Pertinent History COPD Bipolar 1 DM HTN MANISH on CPAP Labs K 5.4 Cr 0.92 AlkP 126 ALT 13 AST 15 A1c 6.5 Hb 13.9 Plt 207 ECHO - Technically difficult exam due to body habitus. - Exam indication: Routine surveillance of moderate or severe valvular stenosis (>1yr) - The left ventricle is moderately dilated. There is severe septal left ventricular hypertrophy. Left ventricular systolic function is normal. EF = 55 5% (visual est.) Definity contrast used for endocardial border detection. LV concentric hypertrophy and spherical remodeling. - The visualized aorta is dilated with a maximal dimension of 4.4 cm. - There is paradoxical low flow, low gradient, severe aortic valve stenosis caused by calcified valve and restricted opening. AV area is 0.72 cm (0.30 cm /m ) by continuity, VTI. The peak gradient is 58 mmHg, the mean gradient is 32 mmHg and the dimensionless valve index is 0.17. Prior AV peak/mean gradients were 76/39 mmHg. - Technically difficult exam despite the use of Definity. - Exam was compared with the prior CC echocardiographic exam performed on 09/30/2022: the aortic valve stenosis is sevre, appears worse with lower DVI today and MARY of 0.72 cm2. [facility] LMT: _ The LMT is normal. LAD: _ The LAD has mild diffuse disease. LCX: _ The Circumflex has mild diffuse disease. RAMUS: _ Ramus Status: Not Applicable. RCA: _ The RCA has mild diffuse disease. Patient denies dysphagia/esophageal pathology. Consents to blood transfusion Patient instructed to: - Follow surgical instruction regarding warfarin/ASA therapy - Continue: PPI, BB, inhalers - Hold: losartan (the day prior), trulicity/dulaglutide (7 days prior) COVID-19 Immunization Status Overdue - Covid-19 Vaccine () Overdue since 10/14/2022 05/20/2022 Imm Admin: COVID-19 vaccine, age 12+ yr, bivalent (PFIZER-BIONTECH) 10/22/2020 Imm Admin: COVID-19 original vaccine, age 12+ yr, monovalent (PFIZER- BIONTECH - PURPLE TOP) 09/17/2020 Imm Admin: COVID-19 original vaccine, age 12+ yr, monovalent (PFIZER- BIONTECH - PURPLE TOP) Only the first 3 history entries have been loaded, but more history exists. The patient has the following: ACTIVE PROBLEM LIST Restrictive Lung Disease Sleep Apnea Bicuspid Aortic Valve Controlled Type 2 Diabetes Mellitus With Diabetic Neuropathy, With Long-Term Current Use of Insulin([facility]) Hyperlipidemia Htn (Hypertension) Ddd (Degenerative Disc Disease), Lumbar Bipolar 1 Disorder ([facility]) Morbid Obesity With Bmi of 50.0-59.9, Adult ([facility]) Lvh (Left Ventricular Hypertrophy) Chronic Bronchitis, Simple ([facility]) Hypogonadism Male Ulnar Neuropathy of Left Upper Extremity Microalbuminuria Nonrheumatic Aortic Valve Stenosis Type 2 Diabetes Mellitus With Microalbuminuria, With Long-Term Current Use of Insulin ([facility]) Nocturnal Oxygen Desaturation Gerd Without Esophagitis Peripheral Vascular Disease ([facility]) Chronic Back Pain Chronic Obstructive Pulmonary Disease ([facility]) History of Disease Morbid Obesity ([facility] [facility] Pneumonia Right Flank Pain Discharge Planning Issues Pre-Op Testing Chronic Diastolic Heart Failure ([facility]) PAST MEDICAL HISTORY Diagnosis Date Anxiety Aortic valve stenosis, nonrheumatic Atrial septal defect and mitral stenosis Bicuspid aortic valve Bipolar 1 disorder (HCC) Chronic obstructive pulmonary disease (COPD) (HCC) Coronary artery disease Degenerative disc disease sees Dr. Sellers Diabetic neuropathy (HCC) DM (diabetes mellitus) ([facility]) HTN (hypertension) Hyperkalemia Hyperlipidemia Hypogonadism male LVH (left ventricular hypertrophy) Morbid obesity ([facility]) MANISH on CPAP Pain management Dr. Sellers [...] Disease Brother other (Myocardial infarc) Brother Fatal [place] No Ocular Disease No Family History Social History Tobacco Use Smoking status: Every Day Packs/day: 0.50 Years: 45.00 Additional pack years: 0.00 Total pack years: 22.50 Types: Cigarettes Smokeless tobacco: Never Vaping Use Vaping Use: Never used Substance Use Topics Alcohol use: Yes Comment: Rarely. 2 beers a year Drug use: No Prior to Admission medications as of 03/16/23 1303 Medication Sig Last Dose Taking insulin needles, DISPOSABLE, (PEN NEEDLE) 31 gauge x 06/28 Use one needle per dose. 4per day. ammonium lactate (LAC-HYDRIN) 12 % cream Apply to affected area as needed for dry skin. losartan (COZAAR) 25 mg tablet Take 1 tablet by mouth once daily. Take with the 50 mg dose in the afternoon (for a total daily dose of 75 mg.) diclofenac potassium (LOFENA) 25 mg tablet Take 25 mg by mouth two times a day. tiZANidine (ZANAFLEX) 4 mg tablet TAKE 1 TABLET BY MOUTH EVERY NIGHT FOR 28 DAYS Patient not taking: Reported on 03/16/2023 atorvastatin (LIPITOR) 10 mg tablet TAKE 1 TABLET BY MOUTH AT BEDTIME *FOR CHOLESTEROL dilTIAZem CD (CARDIZEM CD, CARTIA XT) 180 mg 24 hr capsule Take 1 capsule by mouth once daily. insulin glargine (LANTUS SOLOSTAR U-100 INSULIN) 100 unit/mL (3 mL) Inject 20 Units subcutaneously daily at bedtime. losartan (COZAAR) 50 mg tablet Take 1 tablet by mouth every afternoon. pregabalin (LYRICA) 100 mg capsule Take two in the morning, one in the afternoon, and one in the evening. (total of 4 capsules daily). budesonide-formoterol (SYMBICORT) 80-4.5 mcg/actuation inhaler Inhale 2 Puffs as instructed two times a day. furosemide (LASIX) 40 mg tablet Take 1 tablet by mouth once daily. furosemide (LASIX) 40 mg tablet Take 1 additional tablet of 40 mg lasix PO daily in the morning fortotal of 40 mg BID x 4 days. aspirin 325 mg tablet Take 325 mg by mouth one time only. Patient not taking: Reported on 03/16/2023 dulaglutide (TRULICITY) 3 mg/0.5 mL pen injector Inject 3 mg subcutaneously one time a week. famotidine (PEPCID) 20 mg tablet Take 1 tablet by mouth daily at bedtime. clindamycin (CLEOCIN) 300 mg capsule Take 1 capsule by mouth four times daily. Patient not taking: Reported on 03/16/2023 flash glucose sensor (FREESTYLE ANAHI 2 SENSOR) kit Change sensor every 14 days for testing blood sugars 4 times daily or more DX: E11.40 Insulin: YES pantoprazole DR (PROTONIX) 40 mg tablet Take [...] capsule by mouth one time a week. flash glucose scanning reader (FREESTYLE ANAHI 2 READER) DMII, insulin requiring. Testing 3-5 timesq day insulin aspart U-100 (NOVOLOG FLEXPEN U-100 [...] STOCKINGS 30-40 MM. DX: EDEMA Blood-Glucose Meter [facility] [place]pense 1 kit Medication Comments documented by Nitza Guthrie Ma on 04/29/2014 at 1315. 04/29/14 - Patient states he is on a 50 mg pain patch but does not know the name. Nitza Guthrie Ma ALLERGIES Allergen Reactions Iodinated Contrast * GI Upset, Other: See Comments Hypotension, temporary SOB Lisinopril Other: See Comments Hyperkalemia Penicillins Rash Flonase [Fluticason* Other: See Comments Nose bleeds Objective Pain Assessment: Vitals: There were no vitals taken for this visit. Diagnostic tests reviewed for today's visit: Lab Value Units Date High Low HB 13.9 g/dL 11/30/2022 17.0 13.0 HCT 42.3 % 11/30/2022 51.0 39.0 WBC 9.46 k/uL 11/30/2022 11.00 3.70 PLT 207 k/uL 11/30/2022 400 150 NA 140 mmol/L 02/27/2023 144 136 K 5.7 mmol/L 02/27/2023 5.1 3.7 GLUC 108 mg/dL 02/27/2023 99 74 BUN 17 mg/dL 02/27/2023 24 9 CREAT 0.92 mg/dL 02/27/2023 1.22 0.73 PTSEC No results within date range. INR No results within date range. APTT No results within date range. ALT 13 U/L 02/27/2023 54 10 AST 15 U/L 02/27/2023 40 14 TBILI 0.3 mg/dL 02/27/2023 1.3 0.2 TSH No results within date range. Lab Value Units Date High Low HCGQT No results within date range. UHCG No results within date range. HCG, BODY* No results within date range. Lab Value Units Date High Low ABORHD No results within date range. ABSCREEN No results within date range. Hemoglobin A1C (%) Date Value 02/27/2023 6.5 09/28/2022 7.0 05/20/2022 7.4 10/27/2021 10.1 05/03/2021 10.3 06/24/2020 9.6 03/20/2020 9.4 04/10/2019 7.8 06/25/2018 6.8 12/01/2017 8.9 Recent Results (from the past 8760 hour(s)) ECHO Collection Time: 03/16/23 8:23 AM Impression CONCLUSIONS: - Technically difficult exam due to body habitus. - Exam indication: Routine surveillance of moderate or severe valvular stenosis (>1yr) - The left ventricle is moderately dilated. There is severe septal left ventricular hypertrophy. Left ventricular systolic function is normal. EF = 55 5% (visual est.) Definity contrast used for endocardial border detection. LV concentric hypertrophy and spherical remodeling. - The visualized aorta is dilated with a maximal dimension of 4.4 cm. - There is paradoxical low flow, low gradient, severe aortic valve stenosis caused by calcified valve and restricted opening. AV area is 0.72 cm (0.30 cm /m ) by continuity, VTI. The peak gradient is 58 mmHg, the mean gradient is 32 mmHg and the dimensionless valve index is 0.17. Prior AV peak/mean gradients were 76/39 mmHg. - Technically difficult exam despite the use of Definity. - Exam was compared with the prior echocardiographic exam performed on 09/30/2022: the aortic valve stenosis is sevre, appears worse with lower DVI today and MARY of 0.72 cm2. * * * Final * * * XR CHEST 2V FRONTAL/LAT Collection Time: 10/25/22 3:50 PM Impression IMPRESSION: Stable exam without acute findings. Missile Control Pilot: PSCB Transcribe Date/Time: Oct 26 2022 3:48P Dictated by : MADAN ZACARIAS MD This examination was interpreted and the report reviewed and electronically signed by: MADAN ZACARIAS MD on Oct 26 2022 3:49PM EST Assessment No problem-specific Assessment & Plan notes found for this encounter. ANESTHESIA FINDINGS: Intubation History: No history of difficult intubation Significant Anesthesia Considerations: Airway History: No history of difficult airway Prepared for Surgery: The Following Tests/Procedures Have Been Initiated: No orders of the defined types were placed in this encounter. ASA Class: 4 Planned Anesthetic: general I - PHYSICAL EVALUATION AIRWAY Patient intubated: No. Tracheostomy tube not present Mallampati: IV. TM distance: <3 FB. Neck ROM: full ROM without neurological symptoms. Mouth opening: non-adequate. Short neck: yes. Thick neck: yes Aguero present: yes DENTAL Dentures, upper: complete. Dentures, lower: complete. II - ANESTHESIA PLAN ASA Score: 4 Anesthetic Plan: general Airway type: ETT Beta Maren Monitoring Plan Post Procedure Analgesic Plan Informed Consent Anesthetic risks, benefits, alternatives, personnel and consent discussed: yes. Patient / Responsible Democrat agrees to proceed: yes Patient / Surrogate agrees to blood products: Yes Instructions Given to Patient: Instructions located in the after visit summary. Patient given verbal and written preop instructions and voices comprehension and compliance. Signature: Scarlet Martin MD Patient Name: Kiel Catherine Date: March 16, 2023 Time: 2:39 PM Pager/Contact #: [facility] History and physical note * Lilia Hayden RN - 03/16/2023 1:03 PM EST CHART COPY-DO NOT DISCARD CARDIOVASCULAR SURGERY PRE-OPERATIVE ASSESSMENT NAME: Kiel Catherine Alert Notes: DATE: 03/16/2023 SEX: male : 1960 AGE: [age] year old Estimated body mass index is 53.47 kg/m as calculated from the following: Height as of an earlier encounter on 03/16/23: 154.9 cm (5' 1). Weight as of an earlier encounter on 03/16/23: 128.4 kg (283 lb). STS Score Surgeon: Shlomo Alcocer MD Intended procedure: AVR/Asc Patient scheduled for surgery on: 03/20/2023 [facility] MD: Kiel Barnes MD CHIEF COMPLAINT: Pre-Op Open Heart Surgery MEDICATIONS: Current Outpatient Medications Medication Sig insulin needles, DISPOSABLE, (PEN NEEDLE) 31 gauge x 5/16 Use one needle per dose. 4per day. ammonium lactate (LAC-HYDRIN) 12 % cream Apply to affected area as needed for dry skin. flash glucose sensor (FREESTYLE ANAHI 2 SENSOR) kit Change sensor every 14 days for testing blood sugars 4 times daily or more DX: E11.40 Insulin: YES propylene glycoL (SYSTANE BALANCE) 0.6 % drop Use 1 Drop in both eyes daily at bedtime. flash glucose scanning reader (FREESTYLE ANAHI 2 READER) DMII, insulin requiring. Testing 3-5 timesq day blood sugar diagnostic (FREESTYLE LITE STRIPS) test strip TEST BLOOD SUGAR 1-2 TIMES DAILY lancets (FREESTYLE LANCETS) 28 gauge TEST BLOOD SUGAR 1-2 TIMES DAILY albuterol HFA (PROVENTIL HFA, VENTOLIN HFA) 90 mcg/actuation inhaler Inhale 2 Puffs as instructed every 4 hours as needed for wheezing/shortness of breath. Compression Knee Highs KNEE HIGH COMPRESSION STOCKINGS 30-40 MM. DX: EDEMA Blood-Glucose Meter [facility] [place] Dispense 1 kit losartan (COZAAR) 25 mg tablet Take 1 tablet by mouth once daily. Take with the 50 mg dose in the afternoon (for a total daily dose of 75 mg.) diclofenac potassium (LOFENA) 25 mg tablet Take 25 mg by mouth two times a day. tiZANidine (ZANAFLEX) 4 mg tablet TAKE 1 TABLET BY MOUTH EVERY NIGHT FOR 28 DAYS (Patient not taking: Reported on 03/16/2023) atorvastatin (LIPITOR) 10 mg tablet TAKE 1 TABLET BY MOUTH AT BEDTIME *FOR CHOLESTEROL dilTIAZem CD (CARDIZEM CD, CARTIA XT) 180 mg 24 hr capsule Take 1 capsule by mouth once daily. insulin glargine (LANTUS SOLOSTAR U-100 INSULIN) 100 unit/mL (3 mL) Inject 20 Units subcutaneously daily at bedtime. losartan (COZAAR) 50 mg tablet Take 1 tablet by mouth every afternoon. pregabalin (LYRICA) 100 mg capsule Take two in the morning, one in the afternoon, and one in the evening. (total of 4 capsules daily). budesonide-formoterol (SYMBICORT) 80-4.5 mcg/actuation inhaler Inhale 2 Puffs as instructed two times a day. furosemide (LASIX) 40 mg tablet Take 1 tablet by mouth once daily. furosemide (LASIX) 40 mg tablet Take 1 additional tablet of 40 mg lasix PO daily in the morning fortotal of 40 mg BID x 4 days. aspirin 325 mg tablet Take 325 mg by mouth one time only. (Patient not taking: Reported on 03/16/2023) dulaglutide (TRULICITY) 3 mg/0.5 mL pen injector Inject 3 mg subcutaneously one time a week. famotidine (PEPCID) 20 mg tablet Take 1 tablet by mouth daily at bedtime. clindamycin (CLEOCIN) 300 mg capsule Take 1 capsule by mouth four times daily. (Patient not taking:Reported on 03/16/2023) pantoprazole DR (PROTONIX) 40 mg tablet Take [...] Drop in both eyes three times daily. carvedilol (COREG) 3.125 mg tablet Take 1 tablet by mouth twice daily. ergocalciferol 50,000 unit capsule (VITAMIN D2, DRISDOL) Take 1 capsule by mouth one time a week. insulin aspart U-100 (NOVOLOG FLEXPEN U-100 INSULIN) 100 unit/mL (3 mL) Per sliding scale: <200 no coverage, 201-250-2 units, 251-300-4 units, 301-350-6 units, 351-400-8 units, 400-450-10 units, call above 450. oxycodone myristate (XTAMPZA ER ORAL) Take 18 mg by mouth twice daily. Current Facility-Administered Medications Medication Dose Route Frequency sodium chloride 0.9 % (flush) 10 mL (BD POSIFLUSH) 10 mL INTRAVENOUS DIRECTED PRN ALLERGIES: ALLERGIES Allergen Reactions Lisinopril Other: See Comments Hyperkalemia Penicillins Rash Flonase [Fluticason* Other: See Comments Nose bleeds LATEX ALLERGY: No FOOD SENSITIVITIES: No ANTICOAGULANTS: none STEROIDS: >6 months - possible in September while hospitalized at OSH for COPD exacerbation HISTORIES: FAMILY HISTORY Problem Relation Age of Onset Diabetes Father 2011 with pneumonia other (Dementia) Father Heart Mother CABG 4. Diabetes Sister Ischemic Heart Disease Brother other (Myocardial infarc) Brother Fatal [place] No Ocular Disease No Family History PAST MEDICAL HISTORY Diagnosis Date Anxiety Aortic valve stenosis, nonrheumatic Atrial septal defect and mitral stenosis Bicuspid aortic valve Bipolar 1 disorder (HCC) Chronic obstructive pulmonary disease (COPD) ([facility]) Coronary artery disease Degenerative disc disease sees Dr. Sellers Diabetic neuropathy ([facility]) DM (diabetes mellitus) ([facility]) HTN (hypertension) Hyperkalemia Hyperlipidemia Hypogonadism male LVH (left ventricular hypertrophy) Morbid obesity ([facility]) MANISH on CPAP Pain management Dr. Sellers [...] Tobacco Use Smoking status: Every Day Packs/day: 0.50 Years: 45.00 Additional pack years: 0.00 Total pack years: 22.50 Types: Cigarettes Smokeless tobacco: Never Vaping Use Vaping Use: Never used Substance Use Topics Alcohol use: Yes Comment: Rarely. 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: Headache/Migraine migraine a few per year, Dizziness with positional changes, particularly bending over and straightening up, s/p bilateral carpal tunnel release, BLLE neuropathy RESP: SOB orthopnea - sleeps with 2 pillows, Dyspnea with mild exertion, Emphysema current smoker, Sleep Apnea uses CPAP CARD: HTN , CAD mild non-obstructive, Valvular Heart Disease , Arrhythmias patient endorses that he has some kind of irregular heart beat but unsure of what it is, ASD, AAA GI: GERD well controlled on pantoprazole and famotidine : BPH, s/p vasectomy ENDO: Type 2 Diabetes A1C 6.5 HEME: Denies Hematological complaints MUSC/SKEL: Degenerative Joint Disease bilateral hips, T11-12 compression fracture, Low Back Pain s/p L4-S1 spinal fusion, s/p L rotator cuff and bicep repair, R ankle fracture s/p ORIF and removal, s/p L ulnar nerve decompression PVD: yes, RLE venous insufficiency Varicose Veins: No BRUITS (Carotid): No PULSES: Pedal Left 1 Right 1 NYHA CLASSIFICATION: Class 1 FAMILY HISTORY OF CAD: No ? PERFUSION INDEX: Pacer Check: NA CARDIAC EVALUATION: Cardiac Cath: Date - 11/29/2022 Ultrasound: Date - 12/22/2022 PFT: Date - 11/17/2022 ECHO: Last ECHO Result Conclusion ECHO Collected: 03/16/2023 8:23 AM (Final result) Impression: CONCLUSIONS: - Technically difficult exam due to body habitus. - Exam indication: Routine surveillance of moderate or severe valvular stenosis (>1yr) - The left ventricle is moderately dilated. There is severe septal left ventricular hypertrophy. Left ventricular systolic function is normal. EF = 55 5% (visual est.) Definity contrast used for endocardial border detection. LV concentric hypertrophy and spherical remodeling. - The visualized aorta is dilated with a maximal dimension of 4.4 cm. - There is paradoxical low flow, low gradient, severe aortic valve stenosis caused by calcified valve and restricted opening. AV area is 0.72 cm (0.30 cm /m ) by continuity, VTI. The peak gradient is 58 mmHg, the mean gradient is 32 mmHg and the dimensionless valve index is 0.17. Prior AV peak/mean gradients were 76/39 mmHg. - Technically difficult exam despite the use of Definity. - Exam was compared with the prior CC echocardiographic exam performed on 09/30/2022: the aortic valve stenosis is sevre, appears worse with lower DVI today and MARY of 0.72 cm2. * * * Final * * * CT Scan: Last CT Result Conclusion CTA CHEST (GATED) WO/W IVCON Exam End: 11/24/2022 9:39 AM (Final result) Impression: IMPRESSION: 1. Bicuspid, Alec type 0, aortic [...] noncardiac portion was interpreted by Dr. Dario Santiago from [employer] Operator Supervisor: [facility] Transcribe Date/Time: Nov 24 2022 6:53P Dictated by : VASQUEZ SANTIAGO MD This examination was interpreted and the report reviewed and electronically signed by: VASQUEZ SANTIAGO MD on Nov 28 2022 9:18AM EST MRI: CXR: No results found. EKG: Dental: Cleared ? No results for input(s): WBC, HB, HCT, PLT, INR, APTT, PTSEC, NA, K, BUN, CREAT, UWBC, URBC, ABORHD, CHOL, HDL, LDL, HCGQT in the last 168 hours. Invalid input(s): ABOSCREEN Pre Op Instructions per protocol reviewed and handout given to patient . Patient Education completed and documented. Instructed to start Bactroban per protocol. Emotional support provided to patient and family. All questions and concerns adressed. Signature: Lilia Hayden RN See Cardiology History and Physical dated 03/16/2023 [facility] History of Present illness Narrative* Shlomo Alcocer MD - 03/16/2023 1:02 PM EST Images from the original note were not included. Thoracic and Cardiovascular Surgery [facility] SURGICAL STAFF CONSULT Patient Type: CONSULT Visit to determine Surgery: YES PCP: Alyson Arthur [address] [facility] [place] [address] Referring Physician: Benjamin Pike [address] [facility] [address] HPI: Mr. Kiel Catherine is a seen in consultation at the request of Benjamin Pike for an opinion regarding cardiac surgery. He is a 62 year old male with aortic stenosis. He is currently symptomatic and complains of shortness of breath. I have personally reviewed his cardiac catheterization which shows normal coronary arteries. His echocardiogram reveals normal ventricular function and severe aortic stenosis and BAV. BMI 56. CTA shows 4.5cm ascending. His significant past medical history includes hypertnesion and hyperlipidemia. Based on my evaluation he is a reasonable candidate for surgery. Impression: Aortic stenosis Plan: Minimally Invasive, AV Replacement, and Ascending Aneurysm Repair. These findings will be communicated back to the requesting physician via electronic medical record and/or dictated letter. Shlomo Alcocer MD documented in [facility] History of Present illness Narrative* Kiel Barnes MD - 03/16/2023 9:15 AM EST Images from the original note were not included. Heart and Vascular [place] [facility] Department of Cardiovascular Medicine SECTION OF CLINICAL CARDIOLOGY OUTPATIENT VISIT DATE March 16, 2023 OUTPATIENT VISIT TYPE CONSULTATION PRIMARY CARE PHYSICIAN: Alyson Arthur [address] [place] [address] REFERRING PHYSICIAN Shlomo Alcocer [address] [facility] [address] CHIEF COMPLAINT: Preaortic valve replacement HISTORY OF PRESENT ILLNESS: Cardiac consultation at the request of Dr. Shlomo Alcocer.A copy of this consultation note will be provided to the requesting physician by way of shared Medical record or letter to requesting physician via US mail. Mr. Catherine is a 62 year old male who is seen today for cardiovascular medicine evaluation. He has planned aortic valve replacement for severe stenosis in the setting of bicuspid aortic valve next week. He is limited on physical exertion secondary to shortness of breath and orthopedic back pain. NURSING INTAKE: Patient presents today for preop evaluation. Patient is scheduled for aortic valve intervention on 03/20/[address] Alcocer. PMH includes morbid obesity with BMI of 52, DM type II, COPD, coronary artery disease, bipolar 1 disorder, hypertension, hyperlipidemia, MANISH on CPAP, and pain management for back pain with known bicuspid aortic stenosis. Symptoms: Shortness of breath: Patient states that he has had SOB for quite sometime and it has not been increasing. Gets SOB mostly when he exerts himself. Diet:Regular Exercise: Nothing at this time. 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 Currently on Disability. PAST MEDICAL HISTORY Diagnosis Date Anxiety Aortic valve stenosis, nonrheumatic Atrial septal defect and mitral stenosis Bicuspid aortic valve Bipolar 1 disorder ([facility]) Chronic obstructive pulmonary disease (COPD) ([facility]) Coronary artery disease Degenerative disc disease sees Dr. Sellers Diabetic neuropathy ([facility]) DM (diabetes mellitus) ([facility]) HTN (hypertension) Hyperkalemia Hyperlipidemia Hypogonadism male LVH (left ventricular hypertrophy) Morbid obesity ([facility]) MANISH on CPAP Pain management Dr. Sellers PAST SURGICAL HISTORY Procedure Laterality Date BACK SURGERY HX fusion- lumbar CARPAL TUNNEL both PAST SURGICAL HISTORY OF left shouder surgery PAST SURGICAL HISTORY OF nasal passages clearing for sleep apnea PAST SURGICAL HISTORY OF 02/13/1981 ORIF right ankle PAST SURGICAL HISTORY OF 04/03/2013 left ulnar nerve decompression SOCIAL HISTORY Social History Tobacco Use Smoking status: Every Day Packs/day: 0.50 Years: 45.00 Additional pack years: 0.00 Total pack years: 22.50 Types: Cigarettes Smokeless tobacco: Never Vaping Use Vaping Use: Never used Substance Use Topics Alcohol use: Yes Comment: Rarely. 2 beers a year Drug use: No FAMILY HISTORY Problem Relation Age of Onset Diabetes Father 2011 with pneumonia other (Dementia) Father Heart Mother CABG 4. Diabetes Sister Ischemic Heart Disease Brother other (Myocardial infarc) Brother Fatal [place] No Ocular Disease No Family History ALLERGIES: ALLERGIES Allergen Reactions Iodinated Contrast * GI Upset, Other: See Comments Hypotension, temporary SOB Lisinopril Other: See Comments Hyperkalemia Penicillins Rash Flonase [Fluticason* Other: See Comments Nose bleeds MEDICATIONS: insulin needles, DISPOSABLE, (PEN NEEDLE) 31 gauge x 5/16^Use one needle per dose. 4per day.^Disp:100 Each^Rfl: 11 ammonium lactate (LAC-HYDRIN) 12 % cream^Apply to affected area as needed for dry skin.^Disp: 385 g^Rfl: 3 losartan (COZAAR) 25 mg tablet^Take 1 tablet by mouth once daily. Take with the 50 mg dose in the afternoon (for a total daily dose of 75 mg.)^Disp: 30 tablet^Rfl: 5 diclofenac potassium (LOFENA) 25 mg tablet^Take 25 mg by mouth two times a day.^Disp: ^Rfl: tiZANidine (ZANAFLEX) 4 mg tablet^TAKE 1 TABLET BY MOUTH EVERY NIGHT FOR 28 DAYS^Disp: ^Rfl: (Patient not taking: Reported on 03/16/2023) atorvastatin (LIPITOR) 10 mg tablet^TAKE 1 TABLET BY MOUTH AT BEDTIME *FOR CHOLESTEROL^Disp: 30 tablet^Rfl: 5 dilTIAZem CD (CARDIZEM CD, CARTIA XT) 180 mg 24 hr capsule^Take 1 capsule by mouth once daily.^Disp: 30 capsule^Rfl: 5 insulin glargine (LANTUS SOLOSTAR U-100 INSULIN) 100 unit/mL (3 mL)^Inject 20 Units subcutaneously daily at bedtime.^Disp: 6 Each^Rfl: 1 losartan (COZAAR) 50 mg tablet^Take 1 tablet by mouth every afternoon.^Disp: 30 tablet^Rfl: 11 pregabalin (LYRICA) 100 mg capsule^Take two in the morning, one in the afternoon, and one in the evening. (total of 4 capsules daily).^Disp: 120 capsule^Rfl: 2 budesonide-formoterol (SYMBICORT) 80-4.5 mcg/actuation inhaler^Inhale 2 Puffs as instructed two times a day.^Disp: 1 Each^Rfl: 3 furosemide (LASIX) 40 mg tablet^Take 1 tablet by mouth once daily.^Disp: 30 tablet^Rfl: 11 furosemide (LASIX) 40 mg tablet^Take 1 additional tablet of 40 mg lasix PO daily in the morning fortotal of 40 mg BID x 4 days.^Disp: 4 tablet^Rfl: 0 aspirin 325 mg tablet^Take 325 mg by mouth one time only.^Disp: ^Rfl: (Patient not taking: Reportedon 03/16/2023) dulaglutide (TRULICITY) 3 mg/0.5 mL pen injector^Inject 3 mg subcutaneously one time a week.^Disp: 2 mL^Rfl: 11 famotidine (PEPCID) 20 mg tablet^Take 1 tablet by mouth daily at bedtime.^Disp: 30 tablet^Rfl: 5 clindamycin (CLEOCIN) 300 mg capsule^Take 1 capsule by mouth four times daily.^Disp: 40 capsule^Rfl: 0 (Patient not taking: Reported on 03/16/2023) flash glucose sensor (FREESTYLE ANAHI 2 SENSOR) kit^Change sensor every 14 days for testing blood sugars 4 times daily or more DX: E11.40 Insulin: YES^Disp: 6 Each^Rfl: [address] (PROTONIX) 40 mg tablet^Take 1 tablet by mouth daily before breakfast. Take on empty stomach, 1/2 hr before meal.^Disp: 30 tablet^Rfl: 11 metFORMIN (GLUCOPHAGE) 500 mg tablet^Take 1 tablet by mouth four times daily.^Disp: 120 tablet^Rfl:11 glimepiride (AMARYL) 4 mg tablet^Take 1 tablet by mouth daily with breakfast.^Disp: 30 tablet^Rfl: 11 PEG 400-propylene glycol (SYSTANE ULTRA) 0.4-0.3 % ophthalmic solution^Use 1 Drop in both eyes three times daily.^Disp: 15 mL^Rfl: 3 propylene glycoL (SYSTANE BALANCE) 0.6 % drop^Use 1 Drop in both eyes daily at bedtime.^Disp: 10 mL^Rfl: 3 carvedilol (COREG) 3.125 mg tablet^Take 1 tablet by mouth twice daily.^Disp: 60 tablet^Rfl: 11 ergocalciferol 50,000 unit capsule (VITAMIN D2, DRISDOL)^Take 1 capsule by mouth one time a week.^Disp: 4 capsule^Rfl: 11 flash glucose scanning reader (FREESTYLE ANAHI 2 READER)^DMII, insulin requiring. Testing 3-5 timesq day^Disp: 1 Each^Rfl: 0 insulin aspart U-100 (NOVOLOG FLEXPEN U-100 INSULIN) 100 unit/mL (3 mL)^Per sliding scale: <200 no coverage, 201-250-2 units, 251-300-4 units, 301-350-6 units, 351-400-8 units, 400-450-10 units, call above 450.^Disp: 5 Pen^Rfl: 11 blood sugar diagnostic (FREESTYLE LITE STRIPS) test strip^TEST BLOOD SUGAR 1-2 TIMES DAILY^Disp: 100 Strip^Rfl: 11 lancets (FREESTYLE LANCETS) 28 gauge^TEST BLOOD SUGAR 1-2 TIMES DAILY^Disp: 100 Each^Rfl: 11 albuterol HFA (PROVENTIL HFA, VENTOLIN HFA) 90 mcg/actuation inhaler^Inhale 2 Puffs as instructed every 4 hours as needed for wheezing/shortness of breath.^Disp: 1 Each^Rfl: 0 oxycodone myristate (XTAMPZA ER ORAL)^Take 18 mg by mouth twice daily.^Disp: ^Rfl: Compression Knee Highs^KNEE HIGH COMPRESSION STOCKINGS 30-40 MM. DX: EDEMA^Disp: 1 Each^Rfl: 3 Blood-Glucose Meter misc^Dispense 1 kit^Disp: 1 Each^Rfl: 0 mupirocin (BACTROBAN) 2 % ointment^Apply a small amount in each nostril using a cotton swab twice the day before surgery and once the morning of surgery.^Disp: 22 g^Rfl: 0 REVIEW OF SYSTEMS: GENERAL: Negative for: Weight loss or gain, Fever or Chills, Weakness and Sleep difficulties. HEENT: Negative for: Headache, Impaired Vision, Glasses, Hearing Impairment, Ringing in Ears, Nosebleeds, Poor dental care, Bleeding Gums, Dentures NECK: Negative for: Swelling, Pain, Stiffness RESPIRATORY: Negative for: Cough, Blood in Sputum, Shortness of breath, Wheezing, Apnea GASTROINTESTINAL: Negative for: Trouble swallowing, Heartburn, Change in bowel habits, Blood in stool, Dark black stools MUSCULOSKELETAL: Negative for: Muscle or joint pain, Stiffness , Joint swelling NEUROLOGIC/PSYCHIATRIC: Negative for: Weakness, Paralysis, Numbness, Tingling, Tremor, Nervousness,Depressed mood, Memory loss SKIN: Negative for: Rashes, Itching HEMATOLOGICAL/LYMPHATIC: Negative for: Easy bruising , Easy bleeding ENDOCRINE: Negative for: Heat or cold intolerance, Excessive sweating, Frequent urination, Frequentthirst PHYSICAL EXAMINATION: BP 110/76 (BP Site: Left Arm) Pulse 79 Ht 154.9 cm (5' 1) Wt 128.4 kg (283 lb) SpO2 94% BMI 53.47 kg/m General: Well appearing, in no acute distress. Skin: No clubbing, no cyanosis. Eyes: Extra ocular movements intact Oropharynx: Teeth in good repair. Neck: No jugular venous distention, no carotid bruits. Lungs: Clear to auscultation bilaterally, no wheezing or rhonchi. Heart: Regular rhythm, systolic ejection murmur Abdomen: Soft, nontender, bowel sounds normal. Extremities: No peripheral edema. Psych: Appropriate mood and affect. Neuro: Oriented to person, place and time, alert, cooperative. CARDIOVASCULAR MEDICINE TESTING: CAROTIDS 03/02/2023 FINDINGS -------- RIGHT SIDE Common carotid artery: Origin: PSV: 89 cm/s. EDV: 19 cm/s. Proximal: PSV: 83 cm/s. EDV: 12 cm/s. Mid: PSV: 89 cm/s. EDV: 20 cm/s. Distal: PSV: 64 cm/s. EDV: 13 cm/s. Internal carotid artery: Origin: PSV: 82 cm/s. EDV: 18 cm/s. Proximal: PSV: 81 cm/s. EDV: 23 cm/s. Mid: PSV: 78 cm/s. EDV: 24 cm/s. Distal: PSV: 97 cm/s. EDV: 30 cm/s. Mild heterogeneous plaque at origin. ICA/CCA Ratio: 1.5 External carotid artery: Origin: PSV: 108 cm/s. EDV: 11 cm/s. Mild heterogeneous plaque at origin. Subclavian artery: Origin: PSV: 137 cm/s. EDV: 0 cm/s. Mild heterogeneous plaque at origin. Innominate artery: PSV: 159 cm/s. EDV: 0 cm/s. Vertebral artery: PSV: 44 cm/s. EDV: 12 cm/s. LEFT SIDE Common carotid artery: Proximal: PSV: 89 cm/s. EDV: 16 cm/s. Mid: PSV: 82 cm/s. EDV: 19 cm/s. Distal: PSV: 71 cm/s. EDV: 16 cm/s. Mild heterogeneous plaque from mid to distal. Internal carotid artery: Origin: PSV: 68 cm/s. EDV: 13 cm/s. Proximal: PSV: 51 cm/s. EDV: 14 cm/s. Mid: PSV: 64 cm/s. EDV: 16 cm/s. Distal: PSV: 85 cm/s. EDV: 20 cm/s. Mild heterogeneous plaque at origin. ICA/CCA Ratio: 1.2 External carotid artery: Origin: PSV: 111 cm/s. EDV: 15 cm/s. Mild heterogeneous plaque at origin. Subclavian artery: Proximal: PSV: 200 cm/s. EDV: 0 cm/s. Vertebral artery: PSV: 45 cm/s. EDV: 10 cm/s. IMPRESSION RIGHT SIDE Internal carotid artery: 20-39% stenosis. Vertebral artery: Patent and antegrade flow noted. Innominate artery: Turbulent flow noted. Subclavian artery: Plaque visualized without evidence of hemodynamically significant stenosis. LEFT SIDE Common carotid artery: Plaque visualized without evidence of hemodynamically significant stenosis. Internal carotid artery: 20-39% stenosis. Vertebral artery: Patent and antegrade flow noted. Technologist: Kristal Burr RVT [facility] Ordering physician: LEANDRO FOSTER Interpreting physician: BURT Baker DO Last ECHO Result Conclusion ECHO Collected: 03/16/2023 8:23 AM (Final result) Impression: CONCLUSIONS: - Technically difficult exam due to body habitus. - Exam indication: Routine surveillance of moderate or severe valvular stenosis (>1yr) - The left ventricle is moderately dilated. There is severe septal left ventricular hypertrophy. Left ventricular systolic function is normal. EF = 55 5% (visual est.) Definity contrast used for endocardial border detection. LV concentric hypertrophy and spherical remodeling. - The visualized aorta is dilated with a maximal dimension of 4.4 cm. - There is paradoxical low flow, low gradient, severe aortic valve stenosis caused by calcified valve and restricted opening. AV area is 0.72 cm (0.30 cm /m ) by continuity, VTI. The peak gradient is 58 mmHg, the mean gradient is 32 mmHg and the dimensionless valve index is 0.17. Prior AV peak/mean gradients were 76/39 mmHg. - Technically difficult exam despite the use of Definity. - Exam was compared with the prior CC echocardiographic exam performed on 09/30/2022: the aortic valve stenosis is sevre, appears worse with lower DVI today and MARY of 0.72 cm2. * * * Final * * * Last CT Result Conclusion CTA CHEST (GATED) WO/W IVCON Exam End: 11/24/2022 9:39 AM (Final result) Impression: IMPRESSION: 1. Bicuspid, Alec type 0, aortic [...] noncardiac portion was interpreted by Dr. Dario Santiago from [facility] Supervisor: [facility] Transcribe Date/Time: Nov 24 2022 6:53P Dictated by : VASQUEZ SANTIAGO MD This examination was interpreted and the report reviewed and electronically signed by: VASQUEZ SANTIAGO MD on Nov 28 2022 9:18AM EST CARD CATH DIAGNOSTIC 11/29/2022 Impression:1. Mild coronary artery disease . LABS Component Latest Ref Rng & Units 11/30/2022 02/27/2023 Protein, Total 6.3 - 8.0 g/dL 5.9 (L) 7.1 Albumin 3.9 - 4.9 g/dL 3.6 (L) 4.3 Calcium 8.5 - 10.2 mg/dL 8.8 9.9 Bilirubin, Total 0.2 - 1.3 mg/dL 0.3 0.3 Alkaline Phosphatase 38 - 113 U/L 97 126 (H) AST 14 - 40 U/L 21 15 ALT 10 - 54 U/L 19 13 Glucose 74 - 99 mg/dL 229 (H) 108 (H) BUN 9 - 24 mg/dL 13 17 Creatinine 0.73 - 1.22 mg/dL 0.99 0.92 Sodium 136 - 144 mmol/L 138 140 Potassium 3.7 - 5.1 mmol/L 4.9 5.7 (H) Chloride 97 - 105 mmol/L 104 104 CO2 22 - 30 mmol/L 22 23 Anion Gap 9 - 18 mmol/L 12 13 eGFR >=60 mL/min/1.73m 87 95 Hemoglobin A1C 4.3 - 5.6 % 6.5 (H) Estimated Average Glucose mg/dL 140 Magnesium 1.7 - 2.3 mg/dL 2.0 IMPRESSION/PLAN: Z01.810 Pre-operative cardiovascular examination I35.9 Aortic valve disorder I71.21 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) Comment: Continue with surgical planning which seems appropriate. Follow-up with his local art class model routinely. Thank you for allowing me to participate in the care of your patient. Please reach out to me at anytime with questions or concerns. Kiel Barnes MD, MS, [facility] Co-Director, Former[facility] Cardiology Center marine engineering teacher, [facility] of Medicine of [facility] Section of Clinical Cardiology, Department of Cardiovascular Medicine [facility] Heart, Vascular, and Thoracic [facility], [address] [place] [address], [place] [address] Office Office Appointments: [phone] I personally interviewed, confirmed and edited the above information as obtained by others. documented in this encounterPeoples Hospital12-15-2023 Miscellaneous Notes* Telephone Encounter - Janki Vale RN - 01/27/2023 4:03 PM EST Patient has been identified by name and [...] 02/21/2023 Janki Vale RN. documented in this encounterPeoples Hospital11-27-2023 Miscellaneous Notes* Telephone Encounter - Bebeto Haro - 01/09/2023 2:16 PM EST ESSIE 11/30/22 NOV 02/21/23 * Telephone Encounter - Ya Orona - 01/09/2023 2:06 PM EST Patient has been identified by name and [...] notify patient. Ya Granger documented in this encounterPeoples Hospital11-16-2023 Miscellaneous Notes* Telephone Encounter - Bhavani Juan RN - 12/29/2022 2:30 PM EST Pt did not have a 3 month [...] 06/24/2020 30 Please advise. Thank you. Bhavani Juan RN. documented in this encounterPeoples Hospital11-14-2023 Miscellaneous Notes* Telephone Encounter - Leandro Foster APRN.CNP - 12/27/2022 4:17 PM EST MULTI DISCIPLINARY HIGH RISK CARDIAC / AVR TEAM Members present: Dr. Donaldson, Dr. Calzada, Dr. Parra, Dr. Pike, Dr. Rosa, Dr. Izquierdo, Dr. Valente, Dr. Monroy, Malick Foster, PRICILA, GUEST HISTORY CLERK, Fanny Her APRN, GUEST HISTORY CLERK, Gill Strickland PA, Draio Reis APRN, GUEST HISTORY CLERK, Dario Colbert, TODD, DARRYL Keene, Dillon العلي PA-C. Presenting Physician: Dr. Pike PATIENT NAME: Kiel Catherine DATE: December 27, 2022 Outcome: Kiel Catherine 's history and imaging were reviewed by the physicians in attendance. The collaborative recommendation would be Dr. Pike to discuss case with Dr. Shlomo Alcocer at [facility], given high surgical risk albeit surgery is optimally best option over TAVR. These recommendations were communicated to the patient by myself. Leandro Foster APRN.CNP 12/27/22 documented in this encounterPeoples Hospital11-14-2023 Miscellaneous Notes* Telephone Encounter - Adenike Gloria LPN - 12/27/2022 10:32 AM EST Called patient to notify of below information. Provided daughter with information. Patient daughterstates she will have patient call in and scheduled when he wakes up from nap. Adenike Gloria LPN * Telephone Encounter - Estelle Cardenas - 12/24/2022 5:43 AM EST Please call patient to inform him that [...] made vascular surgery aware Estelle Cardenas DPM * Telephone Encounter - Adenike Gloria LPN - 12/14/2022 3:19 PM EDT 2nd attempt. Called patient with results below. No response. Left VM. Adenike Gloria LPN * Telephone Encounter - Adenike Gloria LPN - 12/08/2022 9:32 AM EDT Called patient with results below. No response. Left VM. Adenike Gloria LPN * Telephone Encounter - Estelle Cardenas - 12/07/2022 10:46 PM EDT Please call patient to inform him that xrays do not show any bony injury Estelle Cardenas DPM documented in this encounterPeoples Hospital11-06-2023 History of Present illness Narrative* Benjamin Pike MD - 12/19/2022 2:36 PM EST PRIMARY CARE PHYSICIAN: Alyson Arthur [address] [place] [address] Subjective Chief Complaint Patient presents with: Valvular Heart Disease: Kiel is here to review testing HISTORY OF PRESENT ILLNESS: Mr. Catherine is a 62 year old male current smoker 1 pack/day with past medical history as listed including morbid obesity with BMI of 52, DM type II, COPD, coronary artery disease, bipolar 1 disorder,hypertension, hyperlipidemia, MANISH on CPAP, and pain management for back pain with known bicuspid aortic stenosis initially followed by Dr. Montgomery in [place] and transitioned to care in [place] with ourcardiology team. He had a recent TTE on 09/30/2022, and though the images are poor due to body habitus he did have findings of severe aortic stenosis with peak gradient of 76, mean gradient 39 DI 0.23, and aortic valve area of 1.0. He was recently admitted to [facility] for a blister on the anterior right [...] a bicuspid, Alec type 0, aortic valve withsevere calcification with a calcium score of 3300. 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 The patient also saw a personal secretary who debrided his noninfected right tibial wound [...] stenosis Bicuspid aortic valve Bipolar 1 disorder ([facility]) Chronic obstructive pulmonary disease (COPD) ([facility]) Coronary artery disease Degenerative disc disease sees Dr. Sellers Diabetic neuropathy ([facility]) DM (diabetes mellitus) ([facility]) HTN (hypertension) Hyperkalemia Hyperlipidemia Hypogonadism male LVH (left ventricular hypertrophy) Morbid obesity ([facility]) MANISH on CPAP Pain management Dr. Sellers [...] Disease Brother other (Myocardial infarc) Brother Fatal [place] No Ocular Disease No Family History Social [...] mg lasix PO daily in the morning fortotal of 40 mg BID x 4 days. [...] 120 capsule 2 flash glucose sensor (FREESTYLE ANAHI 2 SENSOR) kit Change sensor every 14 [...] capsule by mouth one time a week. 4capsule 11 insulin needles, DISPOSABLE, (PEN NEEDLE) 31 gauge x 5/16 Use one needle per dose. 4per day. 100 Each 11 flash glucose scanning reader (FREESTYLE ANAHI 2 READER) DMII, insulin requiring. Testing 3-5 timesq day 1 Each 0 insulin aspart U-100 [...] DX: EDEMA 1 Each 3 Blood-Glucose Meter [facility] [place] Dispense 1 kit 1 Each 0 aspirin [...] SUGAR 1-2 TIMES DAILY (Patient not taking: Reportedon 12/19/2022) 100 Each 11 Current Facility-Administered Medications Medication Dose Route Frequency Provider Last Rate Last Admin perflutren lipid microspheres 1.3 mL in NaCl (PF) 0.9% 10 mL injection (DEFINITY) INTRAVENOUS DIRECTED PRN Kathy Colbert APRN.TODD sodium chloride 0.9 % (flush) 10 mL (BD POSIFLUSH) 10 mL INTRAVENOUS DIRECTED PRN Ari Colbert APRN.GUEST HISTORY CLERK perflutren lipid microspheres 1.3 mL in NaCl [...] with the prior echocardiographic exam performed on 08/10/2018. Aortic stenosis [...] noncardiac portion was interpreted by Dr. Dario Santiago from Radiology Cardiac catheterization on 11/29/2022: Coronary [...] II, COPD, coronary artery disease, bipolar 1 disorder,hypertension, hyperlipidemia, MANISH on CPAP, and pain management for back pain with known bicuspid aortic stenosis initially followed by Dr. Montgomery in [place] and transitioned to care in [place] with ourcardiology team. He had a recent TTE on 09/30/2022, and though the images are poor due to body habitus he did have findings of severe aortic stenosis with peak gradient of 76, mean gradient 39 DI 0.23, and aortic valve area of 1.0. He was recently admitted to [facility] for a blister on the anterior right [...] a bicuspid, Alec type 0, aortic valve withsevere calcification with a calcium score of 3300. 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 The patient also saw a personal secretary who debrided his noninfected right tibial wound [...] week prior to aortic valve replacement. Benjamin Pike MD Cardiothoracic Surgery 12/19/2022 documented in this encounterPeoples Hospital10-27-2023 Miscellaneous Notes* Telephone Encounter - JanuszkelleyBebeto LPN - 12/09/2022 2:29 PM EDT Phoned pt, he states he never received the message to increase the lasix to twice daily x 4 days until yesterday when he picked rx from pharmacy. Pt states he did take 2 tablets yesterday and will plan to take 2 tablets for the next 3 days, resuming previous dose on day 5 unless advised otherwise. Bebeto Haro LPN * Telephone Encounter - Alyson Arthur MD - 12/09/2022 2:11 PM EDT Yes, he is to resume previous dose * Telephone Encounter - Alexandra Osborn LPN - 12/09/2022 1:14 PM EDT Patient is confused on the dosing for [...] you. Alexandra Osborn LPN. documented in this encounterPeoples Hospital10-27-2023 Miscellaneous Notes* Telephone Encounter - Fely Cohn LPN - 12/09/2022 9:36 AM EDT Patient has been identified by name and [...] you. Fely Cohn LPN. documented in this encounterPeoples Hospital10-23-2023 Instructions* Patient Instructions* Estelle Cardenas - 12/05/2022 3:45 PM EDT [...] it. Apply a bandage and wear a differentpair of shoes. Take Care of Your Toenails Cut toenails after bathing, when they are soft. Cut toenails straight across and smooth with a nail file. Avoid cutting into the corners of toes. Do not cut cuticles. If you have neuropathy (or decreased sensation in your feet) a personal secretary should always cut your toenails. Be Careful [...] make sure there are no foreign objects orrough areas. Avoid tight socks. Wear natural-fiber socks [...] Go to your health care provider or personal secretary to treat these conditions. documented in this encounterPeoples Hospital10-23-2023 History of Present illness Narrative* Estelle Cardenas - 12/05/2022 3:27 PM EDT Consultation requested by Dr. Bacon for an opinion regarding ulceration of right leg. Blister of right foot. My final recommendations will be communicated back to the requesting physician by way ofshared Medical record or letter to requesting physician [...] 04/10/2019 7.8 06/25/2018 6.8 12/01/2017 8.9 PCP: Alyson Arthur MD PAST MEDICAL HISTORY Diagnosis Date Anxiety Atrial septal defect and mitral stenosis Bicuspid aortic valve Bipolar 1 disorder (HCC) Chronic obstructive pulmonary disease (COPD) ([facility]) Coronary artery disease Degenerative disc disease sees Dr. Sellers Diabetic neuropathy ([facility]) DM (diabetes mellitus) ([facility]) HTN (hypertension) Hyperkalemia Hyperlipidemia Hypogonadism male LVH (left ventricular hypertrophy) Morbid obesity ([facility]) MANISH on CPAP Pain management Dr. Sellers [...] of 4 capsules daily). flash glucose sensor (InfopiaYLE ANAHI 2 SENSOR) kit Change sensor every 14 [...] 4per day. flash glucose scanning reader (FREESTYLE ANAHI 2 READER) DMII, insulin requiring. Testing 3-5 timesq day insulin aspart U-100 (NOVOLOG FLEXPEN U-100 [...] STOCKINGS 30-40 MM. DX: EDEMA Blood-Glucose Meter [facility] [place] Dispense 1 kit furosemide (LASIX) 40 mg tablet Take 1 additional tablet of 40 mg lasix PO daily in the morning fortotal of 40 mg BID x 4 days. (Patient not taking: Reported on 12/05/2022) clindamycin (CLEOCIN) 300 mg capsule Take 1 capsule by mouth four times daily. (Patient not taking:Reported on 12/05/2022) nicotine (NICODERM CQ) 21 mg/24 [...] Disease Brother other (Myocardial infarc) Brother Fatal [place] No Ocular Disease No Family History Social [...] with diabetes mellitus due to underlying condition ([facility]) (S90.821A) Blister (nonthermal), right foot, initial encounter (E11.40, Z79.4) Controlled type 2 diabetes mellitus with diabetic neuropathy, with long-term current use of insulin ([facility]) PLAN: 1. History and physical examination performed. 2. Discussed blister of right foot. It has drained on its own. No local signs of infection. I am going to treat with betadine applied daily and light compression. Xray ordered. 3. Discussed right anterior leg ulceration. Today, ulceration was sharply debrided thru dermis withdermal curette. Total debridement was 3.0 cm x 1.0 cm x 2 mm. Will treat with topical antibiotic cream, adaptic, compression. 4. Toenails 1-5 right and 2-5 left was debrided in length and thickness. Could consider removal of toenails pending pvr 5. Diabetic education performed 6. Xrays ordered. Estelle Cardenas DPM Podiatry [address] [facility] [address] Dept: [phone] Dept * Tony Dick, RN - 12/05/2022 3:03 PM EDT Patient presents with: Right Foot - New, Swelling, Blister Left Foot - New, Swelling Patient presents for Bilateral foot swelling, Blister to Right foot, patient states that it popped today. Ulcer from blister to Right parker that Dr. Bacon recommended bactroban ointment for. States that he developed these blisters after having lots of swelling to bilateral legs. documented in this encounterPeoples Hospital10-19-2023 Miscellaneous Notes* Telephone Encounter - Tammi Mazariegos - 12/01/2022 11:26 AM EDT Left voicemail for patient letting him know his rx was sent in as requested. Tammi Mazariegos * Telephone Encounter - Pascual Bacon MD - 12/01/2022 11:19 AM EDT Rx sent as requested. * Telephone Encounter - Marley Tang LPN - 12/01/2022 11:06 AM EDT Phoned patient and reviewed results and recommendations with him. Patient voiced understanding and requesting 4 additional lasix doses be sent to [facility] in [place] as he has pill packs and no additional doses to take. Patient reports he has an appointment with podiatry on Monday afternoon. * Telephone Encounter - Mraley Tang LPN - 12/01/2022 11:02 AM EDT ----- Message from Pascual Bacon MD sent at 12/01/2022 8:45 AM [...] with podiatry as ordered. documented in this encounterPeoples Hospital10-18-2023 History of Present illness Narrative* Pascual Bacon MD - 11/30/2022 2:43 PM EDT Chief Complaint Patient presents with: blister on [...] vomiting, diarrhea. Patient does not have a personal secretary. Does not have compression stockings at home, [...] stenosis Bicuspid aortic valve Bipolar 1 disorder ([facility]) Chronic obstructive pulmonary disease (COPD) ([facility]) Coronary artery disease Degenerative disc disease sees Dr. Sellers Diabetic neuropathy ([facility]) DM (diabetes mellitus) ([facility]) HTN (hypertension) Hyperkalemia Hyperlipidemia Hypogonadism male LVH (left ventricular hypertrophy) Morbid obesity ([facility]) MANISH on CPAP Pain management Dr. Sellers [...] Disease Brother other (Myocardial infarc) Brother Fatal [place] No Ocular Disease No Family History Patient [...] 4 capsules daily). flash glucose sensor (FREESTYLE ANAHI 2 SENSOR) kit Change sensor every 14 [...] 4per day. flash glucose scanning reader (FREESTYLE ANAHI 2 READER) DMII, insulin requiring. Testing 3-5 timesq day insulin aspart U-100 (NOVOLOG FLEXPEN U-100 [...] STOCKINGS 30-40 MM. DX: EDEMA Blood-Glucose Meter [facility] [place] Dispense 1 kit Current Facility-Administered Medications on [...] reportedly healing per patient and son. Good granulationtissue noted without surrounding warmth, TTP, or drainage. [...] done Influenza Vaccine(1) due on 10/14/2022 Covid-19 Vaccine(2022- season) due on 10/14/2022 DTaP,Tdap,Td Vaccine(1 - [...] Abs Lymph 1.00 - 4.00 k/uL 1.80 [place]% % 8.0 Abs [place] <0.87 k/uL 0.74 Eosin% % 0.3 Abs [...] neuropathy, with long-term current use of insulin ([facility]) - ICD9: 250.60, 357.2, V58.67, ICD10: E11.40, Z79.4 - Controlled - Continue current medications - CONSULT TO PODIATRY Pascual Bacon MD documented in this encounterPe[facility]10-18-2023 Miscellaneous Notes* Telephone Encounter - July Perez LPN - 11/30/2022 10:07 AM EDT Pt called in to be seen today [...] he had a heart cath done at [facility] yesterday 11-29-22. This was an outpt procedure. No problems after heart cath. Was not able to book with pt's provider/team. Apt has been booked. July Perez LPN documented in this encounterPeoples Hospital10-13-2023 Miscellaneous Notes* Telephone Encounter - Joan Gallardo RN - 11/25/2022 11:37 AM EDT Yen calls and requests most recent OV note from Dr. Arthur. Faxed per request to [phone]. Joan Gallardo RN * Telephone Encounter - Aminah Escudero LPN - 11/25/2022 9:12 AM EDT Completed and faxed back as requested. * Telephone Encounter - Elma Guthrie Ma - 11/24/2022 4:05 PM EDT Type of form: CPAP/BiPAP Form received via fax When form is completed, Fax form to [place] Form has been forwarded to Physician Desk: Dr. Jerson Guthrie Ma documented in this encounterPeoples Hospital10-12-2023 Miscellaneous Notes* Telephone Encounter - Liz Peralta MA - 11/24/2022 2:15 PM EDT Patient notified of results, verbalizes understanding of instructions. Liz Peralta MA * Telephone Encounter - Alyson Arthur MD - 11/24/2022 1:34 PM EDT Noted. Thank you. Hold metformin for [address] scan * Telephone Encounter - Scott Cabrera RN - 11/24/2022 1:13 PM EDT Patient phoned to let pcp know he had CT of heart done today, and was told to hold metformin 2 daysbefore procedure. Asking if he should hold it 2 more days? He cannot remember what they told him. Please advise patient. Reports his back is hurting too much to do the CT brain, but he has ice on it, and trying to get itto calm down, then will try to reschedule in a couple days, since he knows insurance approved it, and doesn't want to miss that window of approval. * Telephone Encounter - Alyson Arthur MD - 11/24/2022 1:09 PM EDT How are his headaches now? Does he feel he can reschedule. * Telephone Encounter - Aminah Escudero LPN - 11/24/2022 1:06 PM EDT FYI * Telephone Encounter - Janki Prather - 11/24/2022 12:55 PM EDT Patient was to have Brain MRI and called to cancel due to back pain and unable to lay on his back and complete this test. documented in this encounterPeoples Hospital10-12-2023 History of Present illness Narrative* Jaelyn Stockton RT(R) - 11/24/2022 9:00 AM EDT Radiology Service Progress Note DATE OF SERVICE: [...] Cane, Wheelchair, Crutches, etc.)? Yes, Patient High Riskfor Falls What interventions were put in place [...] creatinine assay has traceable calibration to isotope dilution- mass spectrometry. Refer to KDIGO guidelines for clinical interpretation. In patients with unstable renal function, e.g. those with acute kidney injury, the eGFRmay not accurately reflect actual GFR. eGFR- Date [...] 2022 TIME: 9:31 AM documented in this encounterPeoples Hospital10-09-2023 Miscellaneous Notes* Telephone Encounter - Carmen Pardo - 11/21/2022 3:16 PM EDT Pharmacy verified in Epic Patient has been identified by name and [...] 12.8 oz) Not applicable Please advise. Carmen Granger documented in this encounterPeoples Hospital10-05-2023 History of Present illness Narrative* Senia Brower RPFT - 11/17/2022 2:31 PM EDT PULM FUNCTION SMARTBLOCK: Provider: Leandro Foster APRN.GUEST HISTORY CLERK Assisting Tech: Senia Brower RPFT Spirometry: 1 DLCO: 1 LV - Box: 1 documented in this encounterPeoples Hospital09-20-2023 Miscellaneous Notes* Telephone Encounter - Janki Vale RN - 11/02/2022 1:14 PM EDT Patient requesting CPAP order be faxed to [facility] at [phone]. Faxed as requested. Janki Vale RN documented in this encounterPeoples Hospital09-19-2023 Miscellaneous Notes* Telephone Encounter - Margi Barnhart LPN - 11/01/2022 12:29 PM EDT Patient notified. Verbalized understanding. * Telephone Encounter - Alyson Arthur MD - 11/01/2022 12:27 PM EDT He sees Dr Sellers for his back. He should be contacting him. * Telephone Encounter - Janki Prather - 11/01/2022 11:36 AM EDT Patient is calling requesting medication (Muscle relaxer) for back pain, declined to schedule appointment to review back pain, Patient uses [facility] in [place] documented in this encounterPeoples Hospital2023 Instructions* Patient Instructions* Kayla Licea LPN - 10/27/2022 3:47 PM [...] drainage, you should contact our office immediately. Tony Mercer would like to see you back in 1 week for wound check. If you have any questions or concerns please feel free to call our office at [phone] and ask to be transferred to General Surgery. Thank you for choosing [facility] - General Surgery. documented in this encounterPeoples Hospital2023 Nurse Note* Kayla Licea LPN - 10/27/2022 3:27 PM EDT UNIVERSAL PROTOCOL / SAFETY CHECKLIST Procedure to [...] Visit completed when applicable. Kayla Licea LPN * Kayla Licea LPN - 10/27/2022 2:57 PM EDT REVIEW OF SYSTEMS: General: The patient NOTES [...] difficulty swallowing, NOTES acid reflux, denies ulcers, deniesvomiting, denies jaundice/hepatitis, denies gallbladder problems, denies black [...] 2007 Kayla Licea LPN documented in this encounterPeoples Hospital2023 History of Present illness Narrative* Tony Mercer PA-C - 10/27/2022 3:13 PM EDT HISTORY AND PHYSICAL Kiel Catherine 1960 REFERRING PHYSICIAN: Alyson Arthur MD CHIEF COMPLAINT: abscess HPI: Kiel [...] disorder (HCC) Chronic obstructive pulmonary disease (COPD) ([facility]) Coronary artery disease Degenerative disc disease sees Dr. Sellers Diabetic neuropathy ([facility]) DM (diabetes mellitus) ([facility]) HTN (hypertension) Hyperkalemia Hyperlipidemia Hypogonadism male LVH (left ventricular hypertrophy) Morbid obesity ([facility]) MANISH on CPAP Pain management Dr. Sellers [...] 120 capsule 2 flash glucose sensor (FREESTYLE ANAHI 2 SENSOR) kit Change sensor every 14 [...] capsule by mouth one time a week. 4capsule 11 insulin needles, DISPOSABLE, (PEN NEEDLE) 31 gauge x 5/16 Use one needle per dose. 4per day. 100 Each 11 dulaglutide (TRULICITY) 3 mg/0.5 mL pen injector Inject 3 mg subcutaneously one time a week. 2 mL 11 flash glucose scanning reader ([place] HeelsSTYLE ANAHI 2 READER) DMII, insulin requiring. Testing 3-5 timesq day 1 Each 0 insulin aspart U-100 [...] DX: EDEMA 1 Each 3 Blood-Glucose Meter [facility] [place] Dispense 1 kit 1 Each 0 Current Facility-Administered Medications Medication Dose Route Frequency Provider Last Rate Last Admin perflutren lipid microspheres 1.3 mL in NaCl (PF) 0.9% 10 mL injection (DEFINITY) INTRAVENOUS DIRECTED PRN Kathy Colbert APRN.GUEST HISTORY CLERK sodium chloride 0.9 % (flush) 10 mL (BD POSIFLUSH) 10 mL INTRAVENOUS DIRECTED PRN Ari Colbert APRN.GUEST HISTORY CLERK perflutren lipid microspheres 1.3 mL in NaCl [...] Disease Brother other (Myocardial infarc) Brother Fatal [place] No Ocular Disease No Family History REVIEW OF SYMPTOMS: The review of systems data was entered by the nurse and reviewed by nd Nursing Notes: Kayla Licea LPN 10/27/2022 3:03 [...] difficulty swallowing, NOTES acid reflux, denies ulcers, deniesvomiting, denies jaundice/hepatitis, denies gallbladder problems, denies black [...] C (97.5 F), height 154.9 cm (5' 1), weight 125.8 kg (277 lb 6.4 oz), [...] changes. If the dressing becomes soaked or hadsignificant drainage, the dressing should be changed. If there is minor bleeding from this skin edge, the patient should hold pressure on the incision. If there is continued bleeding, the patient should contact our office immediately. The patient should wash the wound with gentle soap and water. hemay shower. The wound should not be immersed in a pool, bathtub, or even hot tub. Diagnoses: (L02.415) Cutaneous abscess of right lower extremity (L03.90) Cellulitis of skin Return to Clinic: The patient is instructed to follow-up with me in one week. The patient verbalized understanding of all above and agreed with the plan Tony Mercer PA-C documented in this encounterPeoples Hospital09-13-2023 Miscellaneous Notes* Telephone Encounter - Aminah Escudero LPN - 10/26/2022 4:13 PM EDT Patient notified. * Telephone Encounter - Alyson Arthur MD - 10/26/2022 3:56 PM EDT Let him know his xray is ok. documented in this encounterPeoples Hospital09-12-2023 History of Present illness Narrative* Martha Mobley, RT(R) - 10/25/2022 3:50 PM EDT Radiology Service Progress Note PATIENT NAME: Kiel Catherine DATE OF SERVICE: October 25, 2022 TIME: 3:41 PM PATIENT IDENTITY VERIFICATION COMPLETED USING TWO (2) IDENTIFIERS: Name and Date of confirmedby patient verbally. FALL SCREENING: Has the patient had 2 falls in the last year or 1 fall with injury or currently using an Ambulatory Assistive Device (Walker, Cane, Wheelchair, Crutches, etc.)? Yes, Patient High Riskfor Falls What interventions were put in place to prevent falls during this visit? Offered Assistance with Transfers/Clothing and Instructed Patient to Remain Seated (Not on Exam Table) Until Exam PATIENT GENDER DATA: Male PATIENT RELEVANT IMPLANT DATA REVIEWED: Not Applicable RADIOLOGY DEPARTMENT: General X-ray: Exam(s) Completed: Chest X-Ray PERIPHERAL IV DATA: Not applicable SIGNED BY: RT Jenny(R) October 25, 2022 3:41 PM documented in this encounterPeoples Hospital09-12-2023 Miscellaneous Notes* Telephone Encounter - Janki Vale RN - 10/25/2022 3:05 PM EDT [facility] calling regarding script received for pt's Bactroban cream today. Insurance does notcover the cream, but does cover the ointment. Pharmacy asking if provider would like to change to ointment? Please contact [facility]. Thank you. documented in this encounterPeoples Hospital09-12-2023 History of Present illness Narrative* Alyson Arthur MD - 10/25/2022 2:11 PM EDT Patient presents with: Hospital Follow Up HPI: Patient presents today for office visit for Hospital follow up. Also has concerns of painful boil on upper inside of right thigh. Oozing fluid. Denies fever. Has been there about four days. Admitted into [facility] 10/09/22 Went in for shortness of breath [...] 4 capsules daily). flash glucose sensor (FREESTYLE ANAHI 2 SENSOR) kit Change sensor every 14 [...] time a week. flash glucose scanning reader ([place] HeelsSTYLE ANAHI 2 READER) DMII, insulin requiring. Testing 3-5 timesq day insulin aspart U-100 (NOVOLOG FLEXPEN U-100 [...] STOCKINGS 30-40 MM. DX: EDEMA Blood-Glucose Meter [facility] [place] Dispense 1 kit Current Facility-Administered Medications Medication [...] stenosis Bicuspid aortic valve Bipolar 1 disorder ([facility]) Chronic obstructive pulmonary disease (COPD) ([facility]) Coronary artery disease Degenerative disc disease sees Dr. Sellers Diabetic neuropathy ([facility]) DM (diabetes mellitus) ([facility]) HTN (hypertension) Hyperkalemia Hyperlipidemia Hypogonadism male LVH (left ventricular hypertrophy) Morbid obesity ([facility]) MANISH on CPAP Pain management Dr. Sellers [...] Disease Brother other (Myocardial infarc) Brother Fatal [place] No Ocular Disease No Family History Social [...] past medical history, surgical history, family history andsocial history today. REVIEW OF SYSTEMS All other reviewed and negative other than HPI. HEALTH MAINTENANCE: Reviewed health maintenance issues today and recommended the following in detail. BP Controlled (<130/80) Never done Colorectal Cancer Screening -recommended. Influenza Vaccine(1) due on 10/14/2022 LDL Cholesterol due on 10/27/2022 VITALS: BP 116/60 Pulse 95 Ht 154.9 cm (5' 1) Wt 125.6 kg (276 lb 12.8 oz) [...] has deroofed. No signs of infection. Large areaof redness with open area on right upper [...] SURGERY - CLINDAMYCIN HCL 300 MG CAPSULE Alyson Arthur MD documented in this encounterPeoples Hospital09-07-2023 Miscellaneous Notes* Telephone Encounter - Aminah Escudero LPN - 10/20/2022 12:52 PM EDT Completed as requested. * Telephone Encounter - Scott Livingston PA-C - 10/20/2022 10:19 AM EDT Done Keith Livingston PA-C * Telephone Encounter - Laurel Adan Ma - 10/19/2022 2:41 PM EDT Please print Rx Called to check on PA status was transferred to [facility] medical who advised spoke to patient who did not want to go through them and only local. I verified with rep that since he has medicare he has to go through DME company or no sensor will be given. Rep advised yes has to go through DME [employer]. Spoke to patient who is aware go through DME and get anahi and have to do multiple finger sticks from local pharm. Patient will call [employer] to verify account. [facility] Medical Fax * Telephone Encounter - Laurel Adan Ma - 10/14/2022 3:31 PM EDT Patient called in to request start of PA for anahi sensor. Called pharmacy to see if rx went through since PA started. Pharmacy advised no showing PA needing done. Called patient to get member service number off card and verify bin/pcn numbers. Called [employer] did PA by phone number bolded below is to call and check if we do not hear anything. [employer] Bin [id number] PCN [id number] Member number: ID [id number] * Telephone Encounter - Laurel Adan Ma - 10/06/2022 3:30 PM EDT Fax for PA received from pharmacy for anahi sensor Prior Authorization has been completed online at [employer] for anahi, will await response. [id number] Please keep encounter open until final decision has been received and documented from insurance company. Laurel Adan MA documented in this encounterPeoples Hospital09-01-2023 Miscellaneous Notes* Telephone Encounter - Laurel Adan Ma - 10/14/2022 3:23 PM EDT Please see TE that says prior auth Laurel Adan Ma * Telephone Encounter - Marzena Awad - 10/14/2022 12:25 PM EDT Kiel Catherine is calling Alyson Arthur MD today to request a prior authorization on Flash glucose sensor (FREESTYLE ANAHI 2 SENSOR KIT) Please advise [facility] when approved, as patient is completely out of these sensors Patient has been identified by name and birthdate. Duration of symptoms: N/A Person calling: self Call patient at: at home [phone] (home) [phone] (cell) Was an appointment scheduled: No Closing statement: Prior Authorization Calls: Thank you for calling [facility], your call will be returned within the next 24 hours or next business day. Marzena Diamond documented in this encounterPeoples Hospital08-29-2023 Miscellaneous Notes* Telephone Encounter - Bhavani Juan RN - 10/11/2022 2:48 PM EDT Angela from [facility] calling to let Dr. Arthur and Angela Schmid know that Kiel was in [facility] from 10/08-10/11 for pneumonia. She states she will be talking to the patient on . Asked if she would have pt call in to schedule a hospital follow up within the next two weeks. documented in this encounterPeoples Hospital08-29-2023 Discharge summary Author Shanna Govea [facility] October 11, 2022 11:10am Note Date/Time October 11, 2022 11 :10am [facility] Medical Records Department [address] [place] [address] Instructions for Home/Discharge Instructions 10/11/22 1110 MR#: [id number] Acct: [id number] Name: KIEL CATHERINE Rep #:[id number] : 1960 62 From: Shanna Govea MD PCP: Dr. Alyson Arthur MD Status:ADM I N Discharge Instructions Diet Discharge Diet: Low fat / Low cholesterol and 2000 mg Sodium Diet Activity Discharge Activity: Return to Normal Activity Weight Bearing Status: Weight bearing as tolerated Dressing / Incision Call your doctor if you observe: Fever of 101 or Higher, Shortness of breath, Dizziness, Swelling in the ankles and Chest pain Follow Up Care Test Results: Test results from this visit will be discussed in further detail at your follow- up appointment, if applicable. Discharge Plan Admission Admit Date/Time: 10/09/22 19:51 Primary Reason for Your Visit: community acquired pneumonia Attending Provider: Shanna Govea Primary Care Provider: Alyson Arthur Instructions Patient Instructions: ED Pneumonia (Adult), Pneumonia Discharge Orders/Prescriptions Prescriptions: New prednisone 20 mg Tablet 40 mg PO BREAKFAST Qty: 6 0RF furosemide 40 mg tablet 40 mg PO DAILY Qty: 30 2RF potassium chloride [Klor-Con M20] 20 mEq tablet,ER particles/crystals 20 meq PO DAILY Qty: 30 2RF losartan 50 mg tablet 50 mg PO DAILY Qty: 30 2RF Continued pregabalin [Lyrica] 100 MG capsule 200 mg PO BID metformin 500 MG tablet 500 mg PO 4X/DAY Patient Comments: DIABETES diltiazem HCl 180 MG capsule,extended release 24 hr 180 mg PO DAILY Patient Comments: HEART atorvastatin 10 MG tablet 10 mg PO QHS glimepiride 2 MG tablet 4 mg PO DAILY Trulicity 0.75 MG/0.5 ML pen injector 3 mg SQ QWEEK insulin aspart U-100 [Novolog FlexPen U-100 Insulin] 100 unit/mL (3 mL) Insulin Pen 2 unit SUBCUT TID Rx Instructions: 2 units per every 50 after 200 BG budesonide-formoterol 80-4.5 mcg/actuation Hfa Aerosol Inhaler 2 puff INHALATION BID Xtampza ER 18 mg Cap,Sprinkl,Er12hr(Dont Crush) 18 mg PO BID pantoprazole 40 mg Tablet,Delayed Release (Dr/Ec) 40 mg PO DAILY acetaminophen 500 MG tablet 1,000 mg PO TID PRN (Reason: Pain) albuterol sulfate [Ventolin HFA] 90 mcg/actuation HFA aerosol inhaler 1 - 2 puff inhalation Q4H PRN PRN (Reason: Wheezing) Qty: 8.5 0RF ergocalciferol (vitamin D2) [Vitamin D2] 1,250 mcg (50,000 unit) capsule 50,000 unit PO .MONDAY diclofenac potassium 25 mg capsule 25 mg PO BID Patient Comments: TAKE 1 CAPSULE BY MOUTH TWICE DAILY carvedilol 3.125 mg tablet 3.125 mg PO BID Discontinued hydrochlorothiazide 25 MG tablet 25 mg PO DAILY Patient Comments: WATER PILL losartan-hydrochlorothiazide 50-12.5 mg tablet 1 tab PO DAILY Referrals / Follow Up: Madhu Smith MD [Med Staff - Active Staff] - Within 1 Month (see to establish care for moderate aortic stenosis as seen per echo) Alyson Arthur MD [Primary Care Provider] - Within 2 Weeks Disposition Disposition (needs filled in before D/C Order can be placed): Home, Self Care 10/11/22 1110<Electronically signed by Shanna Govea MD>Shanna Govea MD CC: Dr. Alyson Arthur MD ~ Signed [facility] Work Phone: [phone]) 593-638208-29-2023 Discharge summary Author Juaquin Spear [facility] October 11, 2022 8:30am Note Date/Time October 09, 2022 3: 28pm [facility] Medical Records Department [address] [place] [address] Emergency Department Summary 10/09/22 MR#: [id number] Acct: [id number] Name: KIEL CATHERINE Rep #:[id number] : 1960 62 From: Malia GOFF PCP: Dr. Alyson Arthur MD Status:ADM I N Location: MS3 [id number] <Statement entered by Juaquin Spear MD - 10/11/22 08:30> Pt seen & evaluated w/NAN. I personally interviewed & exam the pt. I was involved in all aspects of pt's orders, interpretation of results & treatment H&P performed by me documented under the MDM portion of the record HPI <SHELL Knox - Last Filed: 10/09/22 15:28> History of Present Illness Chief Complaint: Shortness of Breath Narrative Narrative: Patient is a 62-year-old male with history of COPD, obesity, diabetes, hypertension, hyperlipidemia. Patient is currently getting worked up to have a valve replacement. He states that over the last week, he has had worsening cough, increased shortness of breath, he does sleep in a chair. Patient noticedthat his lower extremities are becoming more edematous, he does have a large blister to his right parker. He states that he also has a cough and feels weak. He is concerned that he has pneumonia or he has congestive heart failure. [facility] <SHELL Knox - Last Filed: 10/09/22 15:28> [facility] Medical History (Updated 10/09/22 @ 22:27 by Ramandeep Mirza) Asthma Benign essential hypertension Bipolar disorder Chronic pain COPD (chronic obstructive pulmonary disease) CPAP (continuous positive airway pressure) dependence Diabetes GERD (gastroesophageal reflux disease) Hearing loss, left HLD (hyperlipidemia) Hypertension Leaky heart valve Morbid obesity MANISH (obstructive sleep apnea) Pancreatitis Smoker Type II diabetes mellitus Home Medications pregabalin 100 mg capsule (Lyrica) 200 mg PO BID NEUROPATHY 12/11/12 [History Last Taken Unknown] diltiazem HCl 180 mg capsule,24 hr,extended release 180 mg PO DAILY 11/20/13 [History Last Taken Unknown] hydrochlorothiazide 25 mg tablet 25 mg PO DAILY BP 11/20/13 [History Last Taken Unknown] metformin 500 mg tablet 500 mg PO 4X/DAY 11/20/13 [History Last Taken Unknown] atorvastatin 10 mg tablet 10 mg PO QHS 11/03/16 [History Last Taken Unknown] dulaglutide 0.75 mg/0.5 mL subcutaneous pen injector (Trulicity) 3 mg SQ QWEEK DIABETES 11/03/16 [History Last Taken 10/07/22] glimepiride 2 mg tablet 4 mg PO DAILY 11/03/16 [History Last Taken Unknown] budesonide-formoterol HFA 80 mcg-4.5 mcg/actuation aerosol inhaler 2 puff inhalation BID 10/30/20 [History Last Taken Unknown] insulin aspart U-100 100 unit/mL (3 mL) subcutaneous pen (Novolog FlexPen U-100 Insulin aspart) 2 unit subcut TID 10/30/20 [History Last Taken Unknown] oxycodone myristate 18 mg capsule sprinkle extended release 12hr(DON'T CRUSH) (Xtampza ER) 18 mg PO BID 10/30/20 [History Last Taken Unknown] pantoprazole 40 mg tablet,delayed release 40 mg PO DAILY 10/30/20 [History Last Taken Unknown] acetaminophen 500 mg tablet 1,000 mg PO TID PRN Pain 10/18/21 [History Last Taken Unknown] albuterol sulfate 90 mcg/actuation aerosol inhaler (Ventolin HFA) 1 - 2 puff inhalation Q4H PRN PRN Wheezing #8.5 grams 10/18/21 [Rx Last Taken Unknown] carvedilol 3.125 mg tablet 3.125 mg PO BID BP 10/09/22 [History Last Taken Unknown] diclofenac potassium 25 mg capsule 25 mg PO BID PAIN 10/09/22 [History Last Taken Unknown] ergocalciferol (vitamin D2) 1,250 mcg (50,000 unit) capsule (Vitamin D2) 50,000 unit PO .MONDAY REPLACEMET 10/09/22 [History Last Taken Unknown] losartan 50 mg-hydrochlorothiazide 12.5 mg tablet 1 tab PO DAILY BP/ WATER PILL 10/09/22 [History Last Taken Unknown] Allergy/AdvReac Type Severity Reaction Status Date / Time Penicillins Allergy Hives Verified 10/09/22 14:22 lisinopril AdvReac Intermediate Upset Verified 10/09/22 18:38 Stomach NASAL SPRAY AdvReac Intermediate Chest Uncoded 10/09/22 14:22 tightness Surgical History History of back surgery Social History (Updated 10/09/22 @ 14:46 by Makenzie Alba) household members: spouse housing: house Smoking Status: Current every day smoker tobacco type: cigarettes substance use type: does not use ROS <SHELL Knox - Last Filed: 10/09/22 15:28> ROS ED ROS Narrative Constitutional: Negative for fever, chills, weight loss. Positive generalized weakness Eyes: Negative for vision loss, vision change, double vision ENT: Negative for any sore throat, ear pain, congestion Cardiovascular: Negative for any chest pain, tightness, palpitations Respiratory: Positive for any cough, sputum production, hemoptysis, dyspnea, dyspnea on exertion, orthopnea Gastrointestinal: Negative for any abdominal pain, nausea, vomiting, diarrhea, constipation, blood in stool, blood in vomit : Negative for any urinary frequency, dysuria, retention, blood in urine Muscle skeletal: Negative for any muscle joint pain, stiffness, myalgias, arthralgias, neck pain, back pain. Positive for bilateral leg edema Neurological: Negative for any headache, syncope, numbness or tingling, dizziness Skin: Negative for any rashes, lumps, itching, abrasions, lacerations Psychiatric: Negative for any depression, anxiety, stress, suicidal ideation, homicidal ideation Hematologic: Negative for any easy bruising, excessive bruising, easy bleeding Allergies: Negative for any eczema, hives, rash EXAM <SHELL Knox - Last Filed: 10/09/22 15:28> Physical Exam Narrative Exam Narrative: Vital signs reviewed. Patient's heart rate is 105, patient's pulse oxygenation is 92% on room air. HEET: Head normocephalic atraumatic, TMs clear bilaterally. Posterior pharynx is clear, moist mucous membranes. Nares clear bilaterally. Neck: Supple with no lymphadenopathy or tenderness. No signs of meningismus, negative jolt sign. Cardiac: Tachycardic rate no murmurs gallops or rubs, equal peripheral pulses bilaterally. Respiratory: expiratory wheezing to the left upper lobe, crackles in the right lower lobe.. No chest tenderness. Abdomen: Soft, nontender, nondistended. No abdominal bruit or pulsatile masses. No hepatosplenomegaly Extremities: +2 pitting edema. Patient does have a large blister to the right lower extremity., no signs of gross trauma or deformity. Active full range of motion of all extremities. Neuro: Cranial nerves II through XII intact, no focal neurological deficits. Skin: Clean dry and intact with no rash, purpura, petechiae, vesicles or pustules. Backs/flank: No CVA tenderness, no midline spinal tenderness, no deformity. Psych: Normal mood and affect. No SI, HI or acute psychosis. Const Vital Signs: 10/09/22 14:19 10/09/22 14:44 10/09/22 14:45 Temperature 96.5 F L Temperature Source Temporal Pulse Rate 110 H 107 H Respiratory Rate 24 H 20 H Respiratory Effort Short of Breath Respiratory Pattern Blood Pressure 144/73 H Blood Pressure Mean 96 Pulse Ox 92 94 Oxygen Delivery Method Room Air Room Air Room Air 10/09/22 15:15 10/09/22 16:18 10/09/22 18:37 Temperature Temperature Source Pulse Rate 98 100 Respiratory Rate 12 20 H 22 H Respiratory Effort Respiratory Pattern Normal Blood Pressure Blood Pressure Mean Pulse Ox 92 94 Oxygen Delivery Method Room Air Room Air Positive obese Nutritional Appearance: obese <Dr. Juaquin Spear MD - Last Filed: 10/09/22 23:43> Physical Exam Const Vital Signs: 10/09/22 14:19 10/09/22 14:44 10/09/22 14:45 Temperature 96.5 F L Temperature Source Temporal Pulse Rate 110 H 107 H Respiratory Rate 24 H 20 H Respiratory Effort Short of Breath Respiratory Pattern Blood Pressure 144/73 H Blood Pressure Mean 96 Pulse Ox 92 94 Oxygen Delivery Method Room Air Room Air Room Air 10/09/22 15:15 10/09/22 16:18 10/09/22 18:37 Temperature Temperature Source Pulse Rate 98 100 Respiratory Rate 12 20 H 22 H Respiratory Effort Respiratory Pattern Normal Blood Pressure Blood Pressure Mean Pulse Ox 92 94 Oxygen Delivery Method Room Air Room Air MDM <SHELL Knox - Last Filed: 10/09/22 15:28> MDM Lab Data Labs: Laboratory Results - last 24 hr 10/09/22 10/09/22 15:36 18:40 WBC 11.1 H RBC 4.89 Hgb 14.7 Hct 44.6 MCV 91.2 MCH 30.1 MCHC 33.0 RDW Std Deviation 42.2 RDW Coeff of David 12.7 Plt Count 229 MPV 10.6 Immature Gran % (Auto) 0.800 Neut % (Auto) 72.5 H Lymph % (Auto) 15.5 L [place] % (Auto) 9.4 Eos % (Auto) 1.2 Baso % (Auto) 0.6 Absolute Neuts (auto) 8.1 H Absolute Lymphs (auto) 1.73 Nucleated RBC % 0 Sodium 137 Potassium 4.1 Chloride 105 Carbon Dioxide 26.0 Anion Gap 6 BUN 23 H Creatinine 0.87 Estim Creat Clear Calc 68.86 Est GFR (MDRD) Af Amer 115 Est GFR (MDRD) Non-Af 95 BUN/Creatinine Ratio 26.4 H Glucose 106 Calcium 9.5 Troponin I High Sens 103 H 122 H* B-Natriuretic Peptide 73.1 Radiography Diagnostic Testing: Clinical Impression(s) from Imaging Studies Chest X-Ray 10/09/22 16:06 IMPRESSION: Prominent pulmonary vasculature with patchy airspace disease in the lower lung bases predominantly on the right which is concerning for acute infiltrate/pneumonia in the appropriate clinical setting. Superimposed alveolar edema in the cardiogenic setting is not excluded. Electronically Signed: Maximilian Davenport DO at 16:27 EDT , Chest CTA 10/09/22 18:55 IMPRESSION: 1. No demonstrated pulmonary embolism or arterial dissection. 2. There is right middle lobe and right lower lobe pneumonia. Electronically Signed: Fabian Nash MD at 20:11 EDT , EKG Sinus tachycardia: Attestation: I personally reviewed and interpreted this EKG as follows: Interpretation: Sinus Rhythm Comments: Sinus tachycardia, rate 102 bpm, KS interval 186 ms, QRS duration 82 ms, no acute ST elevation, no acute infarct noted. Treatment and Re-Evaluation :: Patient appears to be in mild distress, patient does have adventitious lung sounds, both as expiratory wheezes to the left upper lobe as well as to cracklesto the right lower lobe. Patient also has +2 pitting edema to lower extremities. He presents to the emergency department for worsening shortness ofbreath, cough, lower edema swelling. Concerning for CHF exacerbation, fluid overload, pneumonia are all in the differential. Patient received two-view chest x-ray as well as a cardiac work-up including a BNP. All radiologic examinations were read, reviewed by the emergency department attending. From these reads, a plan of care will be put in place. <Dr. Juaquin Spear MD - Last Filed: 10/09/22 23:43> [facility] Narrative Medical decision making narrative: I have personally performed a face to face assessment of the patient and have reviewed the NAN Note. I performed a substantive portion of the visit including all aspects of the following. My vazquez findings include: History is remarkable for shortness of breath over the past 4 to 5 days. He endorses orthopnea and having to sleep in a chair for the past month. He denieshistory of coronary disease or congestive heart failure. He does endorse swelling of his lower extremities. He had a significant posterior anterior mid right leg. He denies fever, chills night sweats. Denies headache, visual, ocular auditory symptoms. He does have a slight cough. He is a smoker of 1.5 packs/day. His cough is essentially nonproductive. He denies GI symptoms. He denies urologic symptoms. He denies history of VTE. Patient reports compliance with his medication. He does have diabetic neuropathy. He is on insulin as well as Trulicity. He is also on Celebrex. Ishaving 3 of type 2 diabetes requiring insulin, hypertension, hypercholesterol and and GERD. Exam is patient is a obese gentleman. His vital signs remarkable elevated bloodpressure and heart rate and respiratory rate initially. Heart rate and respiratory rate improved after he remains still in his bed. HEENT exam revealsno acute abnormality. Conjunctive is pink. Lungs reveal rales right lower lobeposteriorly. Equivocal egophony. There is no dullness to percussion. Heart isregular. Rate is normal. There is no murmur, gallop or rub. Abdomen is prominent soft nontender. Exam is limited because of body habitus. Lower extremity exam reveals pitting edema bilateral with venous stasis changes. There is a large blister anterior right leg with clear straw-colored fluid. Medical Decision Making differential diagnosis would include congestive heart failure, renal failure, pneumonia, dependent edema. Will obtain CBC to assess white count differential as well as H&H. Electrolyte panel to assess renal function, glucose and anion gap since he is diabetic requiring insulin. Chest x-ray is obtained to determine the etiology of his rales. Other additions or changes: Since patient did not have a fever and a significantwhite count hospitalist requested a CTA prior to admission. This was performed and confirms that patient has a right lower lobe pneumonia. Of note 30% of patients who have pneumonia do not have a fever. And it is not uncommon not to have a white count either. History & Record Review Additional record(s) reviewed:: Prior outpatient record (Office visit notes for diabetes, hypertension and hypercholesterolemia.), Prior ED visit and Prior labs Lab Data Attestation: I reviewed the patient's lab results. Lab results narrative: White count is slightly elevated with slight shift. There is no bandemia. He is not anemic. Labs: Laboratory Results - last 24 hr 10/09/22 10/09/22 15:36 18:40 WBC 11.1 H RBC 4.89 Hgb 14.7 Hct 44.6 MCV 91.2 MCH 30.1 MCHC 33.0 RDW Std Deviation 42.2 RDW Coeff of David 12.7 Plt Count 229 MPV 10.6 Immature Gran % (Auto) 0.800 Neut % (Auto) 72.5 H Lymph % (Auto) 15.5 L [place] % (Auto) 9.4 Eos % (Auto) 1.2 Baso % (Auto) 0.6 Absolute Neuts (auto) 8.1 H Absolute Lymphs (auto) 1.73 Nucleated RBC % 0 Sodium 137 Potassium 4.1 Chloride 105 Carbon Dioxide 26.0 Anion Gap 6 BUN 23 H Creatinine 0.87 Estim Creat Clear Calc 68.86 Est GFR (MDRD) Af Amer 115 Est GFR (MDRD) Non-Af 95 BUN/Creatinine Ratio 26.4 H Glucose 106 Calcium 9.5 Troponin I High Sens 103 H 122 H* B-Natriuretic Peptide 73.1 Radiography Chest X-Ray - ED: 2 View and Read by ED Physician (There is interstitial patchy infiltrate noted right lower lobe. Cardiac silhouette size is unremarkable. Perihilar regions unremarkable. Osseous structures are normal. The patchy infiltrate in the right low lower lobe corresponds with rales and egophony notedon physical exam.) Diagnostic Testing: Clinical Impression(s) from Imaging Studies Chest X-Ray 10/09/22 16:06 IMPRESSION: Prominent pulmonary vasculature with patchy airspace disease in the lower lung bases predominantly on the right which is concerning for acute infiltrate/pneumonia in the appropriate clinical setting. Superimposed alveolar edema in the cardiogenic setting is not excluded. Electronically Signed: Maximilian Davenport DO at 16:27 EDT , Chest CTA 10/09/22 18:55 IMPRESSION: 1. No demonstrated pulmonary embolism or arterial dissection. 2. There is right middle lobe and right lower lobe pneumonia. Electronically Signed: Fabian Nash MD at 20:11 EDT , Discharge Plan Disposition Disposition: Acute Care Hospital [facility] Discharge Date/Time: 10/09/22 21:33 What to do if you have Problems For any increased pain, shortness of breath, bleeding, nausea or vomiting, chestpain, or any unexpected problems, contact your Primary Care Provider. Call [facility] ([phone]) or report to the closest Emergency Room. Call 911 if necessary. 10/09/222124 <Electronically signed by Malia GOFF> Cosigner Signature (if applicable): 10/11/22 0830 <Electronically signed by Monse WEIR> CC: Dr. Alyson Arthur MD ~ [facility]igned [facility] Work Phone: 1(861) 936-442308-28-2023 History and physical note Author [facility] October 10, 2022 5:04pm Note Date/Time October 09, 2022 7: 01pm [facility] Medical Records Department [address] [place] [address] History & Physical Exam 10/09/22 1857 MR#: [id number] Acct: [id number] Name: KIEL CATHERINE Rep #:[id number] : 1960 62 From: Shanna Govea MD PCP: Dr. Alyson Arthur MD Status:ADM I N Location: MS3 AI262-5 [facility] Date of Service: 10/09/22 Chief Complaint: shortness of breath HPI Narrative KIEL CATHERINE, is a 62 M with a PMH as outlined who presents via the ED On 10/09/2022 with a complaint of shortness of breath. He is being worked up to get a valve replacement, of the mitral valve it appears, and was supposed to follow up at [facility] tomorrow. He started having worsening cough, increased shortness of breath and swelling of his lower extremities over the last week. He admitted to a cough and generalised weakness. REview of systems was otherwise negative. Vitals in the ED were temp of 96.5F, KS of 107, BP of 144/73 and RR of 22. He was saturating at 94% on room air. CBC showed wbc of 11.1, Hb of 14.7 and platelets of 229. CHemistry was largely unremarkable. Influenza and covid screenwas negative. CXR showed prominent pulmonary vasculature with patchy airspace disease concerning for acute infiltrate/pneumonia though superimposed alveolar edema in the cardiogenic setting isnt excluded. BNP was however only 71. He is being admitted to be managed for community acquired pneumonia. I requested for aCT chest to rule out a PE in light of super morbid obesity and shortness of breath. [facility] Medical History Benign essential hypertension COPD (chronic obstructive pulmonary disease) HLD (hyperlipidemia) Leaky heart valve Morbid obesity MANISH (obstructive sleep apnea) Type II diabetes mellitus Home Medications pregabalin 100 mg capsule (Lyrica) 100 mg PO TID 12/11/12 [History Last Taken Unknown] diltiazem HCl 180 mg capsule,24 hr,extended release 180 mg PO DAILY 11/20/13 [History Last Taken Unknown] hydrochlorothiazide 25 mg tablet 25 mg PO DAILY 11/20/13 [History Last Taken Unknown] metformin 500 mg tablet 500 mg PO 4X/DAY 11/20/13 [History Last Taken Unknown] atorvastatin 10 mg tablet 10 mg PO QHS 11/03/16 [History Last Taken Unknown] dulaglutide 0.75 mg/0.5 mL subcutaneous pen injector (Trulicity) 1.5 mg SQ QWEEK11/03/16 [History Last Taken Unknown] glimepiride 2 mg tablet 4 mg PO DAILY 11/03/16 [History Last Taken Unknown] budesonide-formoterol HFA 80 mcg-4.5 mcg/actuation aerosol inhaler 2 puff inhalation BID 10/30/20 [History Last Taken Unknown] celecoxib 200 mg capsule (Celebrex) 200 mg PO BID 10/30/20 [History Last Taken Unknown] insulin aspart U-100 100 unit/mL (3 mL) subcutaneous pen (Novolog FlexPen U-100 Insulin aspart) 2 unit subcut TID 10/30/20 [History Last Taken Unknown] oxycodone myristate 18 mg capsule sprinkle extended release 12hr(DON'T CRUSH) (Xtampza ER) 18 mg PO BID 10/30/20 [History Last Taken Unknown] pantoprazole 40 mg tablet,delayed release 40 mg PO DAILY 10/30/20 [History Last Taken Unknown] acetaminophen 500 mg tablet 1,000 mg PO TID PRN Pain 10/18/21 [History Last Taken Unknown] albuterol sulfate 90 mcg/actuation aerosol inhaler (Ventolin HFA) 1 - 2 puff inhalation Q4H PRN PRN Wheezing #8.5 grams 10/18/21 [Rx Last Taken Unknown] cyclobenzaprine 10 mg tablet 10 mg PO TID PRN Muscle Spasm #20 TABLETS 09/23/22 [Rx Last Taken Unknown] Allergy/AdvReac Type Severity Reaction Status Date / Time Penicillins Allergy Hives Verified 10/09/22 14:22 lisinopril AdvReac Intermediate Upset Verified 10/09/22 18:38 Stomach NASAL SPRAY AdvReac Intermediate Chest Uncoded 10/09/22 14:22 tightness Surgical History History of back surgery Social History (Updated 10/09/22 @ 14:46 by Makenzie Alba) household members: spouse housing: house Smoking Status: Current every day smoker tobacco type: cigarettes substance use type: does not use ROS Constitutional Constitutional: Reports fatigue, malaise and weakness; Denies anorexia, change in weight, chills or fever(s) Eyes Eyes: Denies change in vision ENT HEENT: Denies dysphagia, headache(s), nasal congestion, nasal discharge, sore throat or throat swelling Cardiovascular Cardiovascular: Denies chest pain, edema or palpitations Respiratory/Chest Respiratory/Chest: Reports cough, shortness of breath at rest, shortness of breath with exertion and wheezing; Denies hemoptysis Gastrointestinal Gastrointestinal: Denies abdominal pain, diarrhea, dyspepsia, nausea or vomiting Genitourinary Genitourinary: Denies dysuria Musculoskeletal Musculoskeletal: Denies joint stiffness or joint swelling Neurologic Neurologic: Denies confusion, dizziness, focal weakness, headache(s), lack of coordination, seizures, tremor(s) or weakness Endocrine Endocrinology: Denies change in body appearance Vital Signs Vital Signs Vital Signs: 10/09/22 14:19 10/09/22 14:44 10/09/22 14:45 Temperature 96.5 F L Temperature Source Temporal Pulse Rate 110 H 107 H Respiratory Rate 24 H 20 H Respiratory Effort Short of Breath Respiratory Pattern Blood Pressure 144/73 H Blood Pressure Mean 96 Pulse Ox 92 94 Oxygen Delivery Method Room Air Room Air Room Air 10/09/22 15:15 10/09/22 16:18 10/09/22 18:37 Temperature Temperature Source Pulse Rate 98 100 Respiratory Rate 12 20 H 22 H Respiratory Effort Respiratory Pattern Normal Blood Pressure Blood Pressure Mean Pulse Ox 92 94 Oxygen Delivery Method Room Air Room Air Weight Weight: 295 lb 10.238 oz Body Mass Index (BMI) 54.1 Physical Exam Const alert, oriented x3 and no apparent distress Constitutional Narrative: super morbid obesity General Appearance: cooperative HEENT normocephalic, head/scalp atraumatic and moist oral mucous membranes Eyes PERRL and EOMs intact bilaterally Neck no lymphadenopathy, supple and no JVD Lymph Lymphatic: no lymphadenopathy noted Resp Resp Narrative: diminished breath sounds bibasally, few crackles. On room air. Mild wheezing bilaterally Cardio regular rate, regular rhythm, S1 normal heart sound, S2 normal heart sound and no murmurs GI normal to inspection, nondistended, normoactive bowel sounds, soft to palpation,non-tender and non-distended GI Narrative: obese abdomen Extremity normal capillary refill and no clubbing, cyanosis or edema Skin Skin Narrative: bilateral LE 2+ pitting edema. Has a large blister on the right parker. Neuro CN's II-XII intact bilaterally, no focal motor deficits and no sensory deficits noted Psych thought process normal, cooperative and affect normal Appearance: appropriate Results Lab / Micro Data 10/09/22 15:36 10/09/22 15:36 Labs: Laboratory Results - last 24 hr 10/09/22 15:36: WBC 11.1 H, RBC 4.89, Hgb 14.7, Hct 44.6, MCV 91.2, MCH 30.1, MCHC 33.0, RDW Std Deviation 42.2, RDW Coeff of David 12.7, Plt Count 229, MPV 10.6, Immature Gran % (Auto) 0.800, Neut % (Auto) 72.5 H, Lymph % (Auto) 15.5 L,[place] % (Auto) 9.4, Eos % (Auto) 1.2, Baso % (Auto) 0.6, Absolute Neuts (auto) 8.1 H, Absolute Lymphs (auto) 1.73, Nucleated RBC % 0, Sodium 137, Potassium 4.1, Chloride 105, Carbon Dioxide 26.0, Anion Gap 6, BUN 23 H, Creatinine 0.87, Estim Creat Clear Calc 68.86, Est GFR (MDRD) Af Amer 115, Est GFR (MDRD) Non-Af 95, BUN/Creatinine Ratio 26.4 H, Glucose 106, Calcium 9.5, Troponin I High Sens 103 H, B- Natriuretic Peptide 73.1 Micro: Microbiology 10/09/22 15:46 Nasal Secretion SARS-CoV-2 & FLU Antigen (Rapid) - Final Radiology Impression Chest X-Ray 10/09/22 16:06 IMPRESSION: Prominent pulmonary vasculature with patchy airspace disease in the lower lung bases predominantly on the right which is concerning for acute infiltrate/pneumonia in the appropriate clinical setting. Superimposed alveolar edema in the cardiogenic setting is not excluded. Electronically Signed: Maximilian Davenport DO at 16:27 EDT , Assessment & Plan Assessment/Plan (1) Pneumonia: (2) COPD exacerbation: PLAN: Plan #COmmunity acquired pneumonia * admit to Med surg * had a productive cough and shortness of breath which is worsening * CXR showed prominent pulmonary vasculature with patchy airspace disease in the lower lung bases predominantly on the right which is concerning for acute infiltrate/pneumonia * wbc minimally elevated at 11.1 * check urine for strep and legionella * start on IV ceftriaxone and azithromycin * get sputum cultures * start on IV lasix also, o/a of lower extremity edema, though BNP is only 73 * IV solumedrol 40mg q8 * CTA chest also ordered and pending * #Type 2 diabetes mellitus: * On dulaglutide 1.5 mg subcu weekly as well as glimepiride and metformin. * Insulin sliding scale. Accu-Cheks ACHS. #Hypertension: On hydrochlorothiazide and Cardizem. #Hyperlipidemia: On statin #MANISH: On CPAP nightly. He states his setting is [id number] DVT prophylaxis: Lovenox Code status: full code * Patient counseled extensively about different types of CODE STATUS including full code, DNR CCA and DNR CCA. Patient elects to be full code * Total afep-db-nwrl: 17 mins Charges/Coding Visit Charges Inpatient E&M: 53465 Init Hosp L3 Procedures Hospitalists Procedures: 08147 Advncd Care Plan 30 Min 10/10/22 1704 <Electronically signed by Shanna Govea MD> Cosigner Signature (if applicable): CC: Dr. Shanna Govea MD; Dr. Alyson Arthur MD~ [facility]igned [facility] Work Phone: 1(529) 465-356908-28-2023 Progress note Author [facility] October 10, 2022 5:04pm Note Date/Time October 10, 2022 12 :48pm [facility] Medical Records Department [address] [place] [id number] Progress Note 10/10/22 1245 MR#: [id number] Acct: [id number] Name: KIEL CATHERINE Rep #:[id number] : 1960 62 From: Shanna Govea MD PCP: Dr. Alyson Arthur MD Status:ADM I N Location: NV3 II996-0 Subjective Subjective Patient seen and examined. He had no active complaints. He feels his breathingis improving slightly. He is still coughing. He denies any chest pain or any other symptoms. Review of systems otherwise negative. He is on 1 L of oxygen by nasal cannula. Objective Data Objective Data Vital Signs: Vital Signs Temp Pulse Resp BP Pulse Ox O2 Del Method O2 Flow Rate 98.1 F 110 H 18 154/85 H 96 Nasal Cannula 1 10/10/22 09:59 10/10/22 09:59 10/10/22 09:59 10/10/22 09:59 10/10/22 09:59 10/10/22 09:59 10/10/22 10:21 Oxygen Flow Rate (L/min) 1 Oxygen Delivery Method Nasal Cannula Weight: 291 lb 14.272 oz Body Mass Index (BMI) 53.4 Intake & Output: Intake and Output for Last 24 Hours 10/08/22 10/09/22 10/10/22 23:59 23:59 23:59 Intake Total 305 / 305 Balance 305 / 305 Lab / Micro Data 10/10/22 01:23 10/10/22 01:23 Labs: Laboratory Results - last 24 hr 10/09/22 15:36: WBC 11.1 H, RBC 4.89, Hgb 14.7, Hct 44.6, MCV 91.2, MCH 30.1, MCHC 33.0, RDW Std Deviation 42.2, RDW Coeff of David 12.7, Plt Count 229, MPV 10.6, Immature Gran % (Auto) 0.800, Neut % (Auto) 72.5 H, Lymph % (Auto) 15.5 L,[place] % (Auto) 9.4, Eos % (Auto) 1.2, Baso % (Auto) 0.6, Absolute Neuts (auto) 8.1 H, Absolute Lymphs (auto) 1.73, Nucleated RBC % 0, Sodium 137, Potassium 4.1, Chloride 105, Carbon Dioxide 26.0, Anion Gap 6, BUN 23 H, Creatinine 0.87, Estim Creat Clear Calc 68.86, Est GFR (MDRD) Af Amer 115, Est GFR (MDRD) Non-Af 95, BUN/Creatinine Ratio 26.4 H, Glucose 106, Calcium 9.5, Troponin I High Sens 103 H, B- Natriuretic Peptide 73.1 10/09/22 18:40: Troponin I High Sens 122 H* 10/09/22 23:06: POC Glucose 224 H 10/10/22 01:23: WBC 11.4 H, RBC 4.65, Hgb 14.0, Hct 42.8, MCV 92.0, MCH 30.1, MCHC 32.7, RDW Std Deviation 43.8, RDW Coeff of David 12.9, Plt Count 221, MPV 11.3, Immature Gran % (Auto) 0.900, Neut % (Auto) 82.0 H, Lymph % (Auto) 9.4 L, [place] % (Auto) 6.4, Eos % (Auto) 0.8, Baso % (Auto) 0.5, Absolute Neuts (auto) 9.4 H, Absolute Lymphs (auto) 1.07, Nucleated RBC % 0, Sodium 137, Potassium 4.4, Chloride 104, Carbon Dioxide 27.0, Anion Gap 6, BUN 23 H, Creatinine 1.06, Estim Creat Clear Calc 56.52, Est GFR (MDRD) Af Amer 91, Est GFR (MDRD) Non-Af 76, BUN/Creatinine Ratio 21.7 H, Glucose 193 H, Calcium 9.4, Troponin I High Sens 118 H 10/10/22 06:48: POC Glucose 286 H Micro: Microbiology 10/09/22 15:46 Nasal Secretion SARS-CoV-2 & FLU Antigen (Rapid) - Final Radiography Diagnostic Testing: Radiology Impression Chest X-Ray 10/09/22 16:06 IMPRESSION: Prominent pulmonary vasculature with patchy airspace disease in the lower lung bases predominantly on the right which is concerning for acute infiltrate/pneumonia in the appropriate clinical setting. Superimposed alveolar edema in the cardiogenic setting is not excluded. Electronically Signed: Maximilian Davenport DO at 16:27 EDT , Chest CTA 10/09/22 18:55 IMPRESSION: 1. No demonstrated pulmonary embolism or arterial dissection. 2. There is right middle lobe and right lower lobe pneumonia. Electronically Signed: Fabian Nash MD at 20:11 EDT , Physical Exam Const alert, oriented x3 and no apparent distress Constitutional Narrative: super morbid obesity General Appearance: cooperative HEENT normocephalic, head/scalp atraumatic and moist oral mucous membranes Eyes PERRL and EOMs intact bilaterally Neck no lymphadenopathy, supple and no JVD Lymph Lymphatic: no lymphadenopathy noted Resp Resp Narrative: diminished breath sounds bibasally, few crackles. On room air. Minimal wheezing bilaterally. On 1L of oxygen by nasal canula. Cardio regular rate, regular rhythm, S1 normal heart sound, S2 normal heart sound and no murmurs GI normal to inspection, nondistended, normoactive bowel sounds, soft to palpation,non-tender and non-distended GI Narrative: obese abdomen Extremity normal capillary refill and no clubbing, cyanosis or edema Skin Skin Narrative: bilateral LE 2+ pitting edema. blister on right parker has ruptured. Neuro CN's II-XII intact bilaterally, no focal motor deficits and no sensory deficits noted Psych thought process normal, cooperative and affect normal Appearance: appropriate Assessment & Plan Assessment/Plan (1) Pneumonia: (2) COPD exacerbation: PLAN: Plan #COmmunity acquired pneumonia * CXR showed prominent pulmonary vasculature with patchy airspace disease in the lower lung bases predominantly on the right which is concerning for acute infiltrate/pneumonia * wbc trended up slightly today to 11.4 * urine for strep and legionella negative. * start on IV ceftriaxone and azithromycin * sputum cultures pending * also on IV lasix * switch to PO prednisone * CTA chest was negative for PE but showed right middle and lower lobe pneumonia * * #Type 2 diabetes mellitus: * On dulaglutide 1.5 mg subcu weekly as well as glimepiride and metformin. * Insulin sliding scale. Accu-Cheks ACHS. #Hypertension: On hydrochlorothiazide and Cardizem. #Hyperlipidemia: On statin #MANISH: On CPAP nightly. He states his setting is [id number] #Nicotine dependence: counseled to quit. Still smokes about 1 pack daily. Willstart on nicotine patch 21 mg daily. DVT prophylaxis: Lovenox Code status: full code * Charges/Coding Visit Charges Inpatient E&M: 61537 Subs Hosp L2 10/10/22 1704 <Electronically signed by Shanna Govea MD> Shanna Govea MD Cosigner Signature (if applicable): CC: ~ Signed [facility] Work Phone: [phone] [phone] Miscellaneous Notes* Telephone Encounter - Radha Messer - 10/07/2022 12:19 PM EDT 2nd call: Left VM to schedule OV w/ Dr. Pike. Internal referral from Kathy Colbert APRN.CNP - Aortic valve stenosis, etiology of cardiac valve disease unspecified; Bicuspid aortic valve documented in this encounterPeoples [facility]08-23-2023 Miscellaneous Notes* Telephone Encounter - Bairon Mendoza - 10/05/2022 8:32 AM EDT Patient has been identified by name and date of : Yes Last office visit in this department: 09/28/2022 RX INSTRUCTIONS: Patient aware RX will be sent to pharmacy. No need to notify patient. Patient phones requesting refills as follows: Requested Prescriptions Pending Prescriptions Disp Refills flash glucose sensor (FREESTYLE ANAHI 2 SENSOR) kit 2 Each Sig: DMII, insulin requiring. Testing 3-5 times q day Please review and advise. Bairon Mendoza documented in this encounterPeoples Hospital08-22-2023 Miscellaneous Notes* Telephone Encounter - Krys Olivares RN - 10/04/2022 3:22 PM EDT Pt. notified. Voices understanding. Will await call from associates regarding valve replacement surgery. Krys Olivares RN * Telephone Encounter - Krys Olivares RN - 10/04/2022 3:22 PM EDT ----- Message from Kathy Colbert APRN.CNP sent at 10/03/2022 11:09 AM EDT ----- Please call patient and notify him of echocardiogram results. Echocardiogram reveals parameters forsevere aortic stenosis. I did document some symptoms of fatigue, lower extremity swelling and dyspnea on exertion at his last office visit. Given his echo reveals his aortic stenosis is severe and hehas symptoms he would qualify for referral to surgery for consideration for replacement. I placed an order for a referral. Thank you! documented in this encounterPeoples Hospital08-21-2023 Miscellaneous Notes* Result Encounter Note - Kathy Colbert APRN.CNP - 10/03/2022 11:09 AM EDT Please call patient and notify him of echocardiogram results. Echocardiogram reveals parameters forsevere aortic stenosis. I did document some symptoms of fatigue, lower extremity swelling and dyspnea on exertion at his last office visit. Given his echo reveals his aortic stenosis is severe and hehas symptoms he would qualify for referral to surgery for consideration for replacement. I placed an order for a referral. Thank you! documented in this encounterPeoples Hospital08-16-2023 History of Present illness Narrative* Alyson Arthur MD - 09/28/2022 3:06 PM EDT Patient presents with: Follow Up HPI: Patient presents today for office visit for follow up. Concerned today with back pain. Has been seeing Dr Sellers and had injection that didn't help. Was told to get referral from PCP to ortho. Pain is going into right hip and down right leg. Had MRI in [place] but hasn't not been given results yet. [...] records from Dr Sellers. Diabetes: Has a anahi sensor but hasn't been wearing recently. Knows [...] frequency/results:usually 4-5 times per day has a anahi sensor to use Hypoglycemic spells: No. Watching diet: Yes. Family using keto diet watching starch intake Unexpected weight loss: No. Polyuria, polydipsia: up a lot at night for urination. Vision Changes: Yes. Was told cataracts at last visit. Will set up visit. Driving less. Foot lesions or numbness or pain: trying to watch salt intake due to swelling. Asking for new orderfor diabetic shoes. Doesn't see podiatry . HYPERLIPIDEMIA: [...] call above 450. flash glucose sensor (FREESTYLE ANAHI 2 SENSOR) kit DMII, insulin requiring. Testing [...] Pen After flash glucose scanning reader (FREESTYLE ANAHI 2 READER) DMII, insulin requiring. Testing 3-5 timesq day blood sugar diagnostic (FREESTYLE LITE STRIPS) [...] by mouth three times daily. Blood-Glucose M[place] [facility] [place] 1 kit Current Facility-Administered Medications Medication [...] stenosis Bicuspid aortic valve Bipolar 1 disorder ([facility]) Chronic obstructive pulmonary disease (COPD) ([facility]) Coronary artery disease Degenerative disc disease sees Dr. Sellers Diabetic neuropathy ([facility]) DM (diabetes mellitus) ([facility]) HTN (hypertension) Hyperkalemia Hyperlipidemia Hypogonadism male LVH (left ventricular hypertrophy) Morbid obesity ([facility]) MANISH on CPAP Pain management Dr. Sellers [...] Disease Brother other (Myocardial infarc) Brother Fatal [place] No Ocular Disease No Family History Social [...] past medical history, surgical history, family history andsocial history today. REVIEW OF SYSTEMS All other [...] 791.0, ICD10: R80.9 - remains on arb Alyson Arthur MD RTO in four to six weeks for recheck. documented in this encounterPeoples Hospital07-06-2023 Miscellaneous Notes* Telephone Encounter - Angela Schmid APRN.CNP - 08/18/2022 7:49 AM EDT Noted. Angela Schmid APRN.CNP * Telephone Encounter - Joan Gallardo RN - 08/17/2022 4:53 PM EDT Patient returns call and provider message reviewed. Patient will check with [employer] and insurance and call back once he finds out what is needed. Joan Gallardo, RN * Telephone Encounter - Bebeto Haro LPN - 08/17/2022 11:10 AM EDT Left message for pt to return call to office. Bebeto Haro LPN * Telephone Encounter - Angela Schmid APRN.GUEST HISTORY CLERK - 08/17/2022 8:43 AM EDT I did an order; however, I don't think his last scooter came through insurance (I think he bought it used). Insurance usually has a special form or eval that needs to be completed for scooters, so dustin need to check with his insurance and get any special paperwork and return for another visit. * Telephone Encounter - Alyson Arthur MD - 08/11/2022 3:57 PM EDT I would see if she feels comfortable completing. * Telephone Encounter - Allison Omalley - 08/11/2022 3:14 PM EDT Patient was seen by Angela on 06/28/22 in which the need for the scooter was addressed. Would this be suffice? Allison Omalley * Telephone Encounter - Alyson Arthur MD - 08/11/2022 2:52 PM EDT Would need full face to face visit for that. * Telephone Encounter - Cheyenne Alarcon LPN - 08/11/2022 2:34 PM EDT Patient is needing an order for a new scooter because insurance will not cover just the batteries now. Patient wishes to get a new motorized scooter battery operated. Order needed to go to [facility]. Cheyenne Alarcon LPN documented in this encounterPeoples Hospital06-30-2023 Miscellaneous Notes* Telephone Encounter - M Linwood Cabrera RN - 08/12/2022 4:06 PM EDT Patient has been identified by name and date of : Yes, Provider [place] Date 08-12-22 Time 4:07 pm Pharmacy phones [...] you. Scott Cabrera RN documented in this encounterPeoples Hospital06-28-2023 Miscellaneous Notes* Telephone Encounter - Joan Gallardo RN - 08/10/2022 9:05 AM EDT Spouse (Shweta) calls to request compression stocking order be sent to [facility]. Pended with previous diagnosis of bilateral leg edema. Last OV: 06/28/2022 Next OV: 08/29/2022 Joan Gallardo RN documented in this encounterPeoples Hospital06-26-2023 Miscellaneous Notes* Telephone Encounter - Aminah Escudero LPN - 08/08/2022 7:07 PM EDT Faxed order and last OV that discussed sleep apnea to [facility] as requested. * Telephone Encounter - Alyson Arthur MD - 08/08/2022 5:07 PM EDT Written. I used old settings. * Telephone Encounter - Elma Guthrie Ma - 08/08/2022 1:17 PM EDT Last OV that discussed MANSIH was 05/20/22. Last study 07/21/16 * Telephone Encounter - Alyson Arthur MD - 08/08/2022 12:47 PM EDT Has he spoke to any of the providers about it at an ov. May need a face to face to document it. Howold was his last sleep test? May need to repeat it. * Telephone Encounter - Tia Arenas RN - 08/01/2022 3:32 PM EDT Patient calling with request for order for new CPAP machine/supplies be sent to [facility]. Hesays his machine has reached it's maximum hours. . Aware PCP out of office this week. States okay to wait for provider's return. Tia Arenas RN documented in this encounterPeoples Hospital06-07-2023 Miscellaneous Notes* Telephone Encounter - Janki Vale RN - 07/20/2022 3:13 PM EDT Medication refill requested by Pharmacy Please review [...] to Visit Medication Sig flash glucose sensor ([place] HeelsSTYLE ANAHI 2 SENSOR) kit DMII, insulin requiring. Testing [...] time a week. flash glucose scanning reader ([place] HeelsSTYLE ANAHI 2 READER) DMII, insulin requiring. Testing 3-5 timesq day celecoxib (CELEBREX) 200 mg capsule Take [...] by mouth three times daily. Blood-Glucose Meter [facility] [place] Dispense 1 kit Janki Vale RN documented in this encounterPeoples Hospital06-01-2023 History of Present illness Narrative* Greta Powers, OD - 07/14/2022 3:10 PM EDT 1. Type 2 diabetes mellitus without retinopathy [...] weeks along with refraction and IOP check Greta Powers, OD July 14, 2022 3:10 PM documented in this encounterPeoples Hospital06-01-2023 History of Present illness Narrative* Santi Sepulveda RT(R) - 07/14/2022 1:40 PM EDT Radiology Service Progress Note PATIENT NAME: Kiel Catherine DATE OF SERVICE: July 14, 2022 TIME: 3:38 PM PATIENT IDENTITY VERIFICATION COMPLETED USING TWO (2) IDENTIFIERS: Name and Date of confirmedby patient verbally. FALL SCREENING: Has the patient [...] 14, 2022 3:38 PM documented in this encounterPeoples Hospital05-22-2023 History of Present illness Narrative* Martha Mobley RT(R) - 07/04/2022 3:10 PM EDT Radiology Service Progress Note PATIENT NAME: Kiel Catherine DATE OF SERVICE: July 04, 2022 TIME: 3:03 PM PATIENT IDENTITY VERIFICATION COMPLETED USING TWO (2) IDENTIFIERS: Name and Date of confirmedby patient verbally. FALL SCREENING: Has the patient had 2 falls in the last year or 1 fall with injury or currently using an Ambulatory Assistive Device (Walker, Cane, Wheelchair, Crutches, etc.)? Yes, Patient High Riskfor Falls What interventions were put in place to prevent falls during this visit? Offered Assistance with Transfers/Clothing and Instructed Patient to Remain Seated (Not on Exam Table) Until Exam PATIENT GENDER DATA: Male PATIENT RELEVANT IMPLANT DATA REVIEWED: Not Applicable RADIOLOGY DEPARTMENT: General X-ray: Exam(s) Completed: Pelvis X-Ray: Pelvis with Hip Left PERIPHERAL IV DATA: Not applicable SIGNED BY: RT Jenny(R) July 04, 2022 3:03 PM documented in this encounterPeoples Hospital05-16-2023 Instructions* Patient Instructions* Angela Schmid APRN.CNP - 06/28/2022 3:43 PM EDT Continue the same blood pressure medication. Check with insurance re: shingrix vaccine. Let us know about the scooter battery. Recheck in 2 months. documented in this encounterPeoples Hospital05-16-2023 History of Present illness Narrative* Angela Schmid APRN.CNP - 06/28/2022 3:26 PM EDT This is a 61 year old male [...] stenosis Bicuspid aortic valve Bipolar 1 disorder ([facility]) Chronic obstructive pulmonary disease (COPD) ([facility]) Coronary artery disease Degenerative disc disease sees Dr. Sellers Diabetic neuropathy ([facility]) DM (diabetes mellitus) ([facility]) HTN (hypertension) Hyperkalemia Hyperlipidemia Hypogonadism male LVH (left ventricular hypertrophy) Morbid obesity ([facility]) MANISH on CPAP Pain management Dr. Sellers [...] a week. flash glucose scanning reader (FREESTYLE ANAHI 2 READER) DMII, insulin requiring. Testing 3-5 timesq day flash glucose sensor (FREESTYLE ANAHI 2 SENSOR) kit DMII, insulin requiring. Testing [...] by mouth three times daily. Blood-Glucose Meter [facility] [place] Dispense 1 kit dulaglutide (TRULICITY) 1.5 mg/0.5 [...] Disease Brother other (Myocardial infarc) Brother Fatal [place] Social History Tobacco Use Smoking status: Every [...] or as needed for worsening/no improvement. Angela Schmid APRN.GUEST HISTORY CLERK documented in this encounterPeoples Hospital05-12-2023 Miscellaneous Notes* Telephone Encounter - Janki Jenkins Pss - 06/24/2022 3:14 PM EDT Patient has been identified by name and [...] and advise. Janki Granger documented in this encounterPeoples Hospital04-18-2023 History of Present illness Narrative* Greta Powers, OD - 05/31/2022 2:56 PM EDT 1. Type 2 diabetes mellitus without retinopathy (HCC) Risk of diabetic changes and vision loss can be minimized by tight control of blood sugar, blood pressure, and cholesterol levels. 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 * Telephone Encounter - Alyson Arthur MD - 05/30/2022 8:18 AM EDT Let him know sugars are much better. Urine still shows protein but is stable. Keep watching his diet. documented in this encounterPeoples Hospital04-11-2023 Miscellaneous Notes* Telephone Encounter - Allison Omalley - 05/24/2022 3:01 PM EDT Patient informed and verbalized understanding. Allison Omalley * Telephone Encounter - Alyson Arthur MD - 05/24/2022 8:04 AM EDT Sugar is much better. Remind him he has a urine for microglobulin ordered that should have veen done with the labs. Please do documented in this encounterPeoples Hospital04-10-2023 Instructions* Patient Instructions* Kathy Colbert APRN.[facility] - 05/23/2022 10:55 AM EDT Patient information: Aortic stenosis (The Basics) What is aortic stenosis? -- Aortic stenosis is a condition in which one of the valves in the heart,called the aortic valve, doesn't open fully. The heart valves keep blood flowing in only one direction. When the heart valves work normally, they open all the way to let blood flow through them. Blood flows from a chamber of the heart called the left ventricle, through the aortic valve, into alarge blood vessel called the aorta. The aorta [...] doctor know if you have any of thesesymptoms. Is there a test for aortic stenosis? -- Yes. To check for aortic stenosis and see how severe it is,your doctor might order an echocardiogram (or echo). This test uses sound waves to create [...] or no symptoms, you might not need anytreatment. But your doctor will follow you to [...] used in children and young adults, because itis helpful in these people. This procedure is [...] or she might recommend treating your aortic stenosisbefore you get . All topics are updated as new evidence becomes available and our peer review process is complete. The content on the [employer] website is not intended nor recommended as a substitute for medical advice, diagnosis, or treatment. Always seek the advice of your own physician or other qualified healthcare professional regarding any medical questions or conditions.. 2016 [employer] All rights reserved. Topic 99223 Version 5.0 documented in this encounterPeoples Hospital04-10-2023 History of Present illness Narrative* Kathy Colbert APRN.CNP - 05/23/2022 10:30 AM EDT Images from the original note were not included. [facility] Card[facility] ([facility]) [address] [facility] [id number] OUTPATIENT VISIT May 23, 2022 10:30 AM [...] was previously evaluated by Dr. Montgomery in [place]. He is seen today to establish cardiology [...] blood pressure is suboptimal in office today heis agreeable to medication adjustments. He is agreeable to echocardiogram for further evaluation. He understands if aortic valve stenosis is severe he may be referred for a surgical approach evaluation. PAST MEDICAL HISTORY Diagnosis Date Anxiety Atrial septal defect and mitral stenosis Bicuspid aortic valve Bipolar 1 disorder ([facility]) Chronic obstructive pulmonary disease (COPD) ([facility]) Coronary artery disease Degenerative disc disease sees Dr. Sellers Diabetic neuropathy ([facility]) DM (diabetes mellitus) ([facility]) HTN (hypertension) Hyperkalemia Hyperlipidemia Hypogonadism male LVH (left ventricular hypertrophy) Morbid obesity ([facility]) MANISH on CPAP Pain management Dr. Sellers [...] Disease Brother other (Myocardial infarc) Brother Fatal [place] Social History Tobacco Use Smoking status: Every [...] capsule by mouth one time a week. 4capsule 11 pregabalin (LYRICA) 100 mg capsule Take [...] mL 11 flash glucose scanning reader (FREESTYLE ANAHI 2 READER) DMII, insulin requiring. Testing 3-5 timesq day 1 Each 0 flash glucose sensor (FREESTYLE ANAHI 2 SENSOR) kit DMII, insulin requiring. Testing [...] 1 application to affected area once daily. 1Tube 11 oxycodone myristate (XTAMPZA ER ORAL) Take 18 mg by mouth twice daily. Compression Knee Highs KNEE HIGH COMPRESSION STOCKINGS 30-40 MM. DX: EDEMA 1 Each 3 oxyCODONE-acetaminophen (PERCOCET) 5-325 mg tablet Take 1 tablet by mouth three times daily. 0 Blood-Glucose Meter [facility] [place] Dispense 1 kit 1 Each 0 losartan-hydroCHLOROthiazide [...] injection (DEFINITY) INTRAVENOUS DIRECTED PRN Kathy Colbert APRN.GUEST HISTORY CLERK sodium chloride 0.9 % (flush) 10 mL (BD POSIFLUSH) 10 mL INTRAVENOUS DIRECTED PRN Kathy Colbert APRN.GUEST HISTORY CLERK perflutren lipid microspheres 1.3 mL in NaCl [...] tingling, sensory change, speech change, focal weakness, lossof consciousness, weakness and headaches. Endo/Heme/Allergies: Does not bruise/bleed easily. Psychiatric/Behavioral: Negative for depression, memory loss and suicidal ideas. The patient is notnervous/anxious and does not have insomnia. Physical Examination: [...] is severe he will need an ischemic evaluationprior to replacement consideration HTN -145/80. Change HCTZ [...] diastolic dysfunction -compensate on exam -repeat echocardiogram pendin g -recommended heart healthy, 2g low sodium [...] 23, 2022, 9:18 AM documented in this encounterPeoples Hospital04-07-2023 History of Present illness Narrative* Alyson Arthur MD - 05/20/2022 2:11 PM EDT Patient presents with: Diabetes HPI: Patient presents [...] frequency/results:usually 4-5 times per day has a anahi sensor to use Hypoglycemic spells: No. Watching diet: Yes. Family using keto diet watching starch intake Unexpected weight loss: No. Polyuria, polydipsia: up a lot at night for urination. Vision Changes: Yes. Was told cataracts at last visit. Will set up visit. Driving less. Foot lesions or numbness or pain: trying to watch salt intake due to swelling. Asking for new orderfor diabetic shoes. Doesn't see podiatry . HYPERLIPIDEMIA: [...] Pen After flash glucose scanning reader (FREESTYLE ANAHI 2 READER) DMII, insulin requiring. Testing 3-5 timesq day flash glucose sensor (FREESTYLE ANAHI 2 SENSOR) kit DMII, insulin requiring. Testing [...] by mouth three times daily. Blood-Glucose Meter [facility] [place] Dispense 1 kit Current Facility-Administered Medications Medication [...] disorder (HCC) Chronic obstructive pulmonary disease (COPD) ([facility]) Coronary artery disease Degenerative disc disease sees Dr. Sellers Diabetic neuropathy ([facility]) DM (diabetes mellitus) ([facility]) HTN (hypertension) Hyperkalemia Hyperlipidemia Hypogonadism male LVH (left ventricular hypertrophy) Morbid obesity ([facility]) MANISH on CPAP Pain management Dr. Sellers [...] Disease Brother other (Myocardial infarc) Brother Fatal [place] Social History Tobacco Use Smoking status: Every Day Packs/day: 0.75 Years: 30.00 Pack years: 22.50 Types: Cigarettes Smokeless tobacco: Never Tobacco comments: less than a pack/day. Substance Use Topics Alcohol use: Yes Comment: Rarely. 2 beers a year Drug use: No Reviewed current medications, allergies, past medical history, surgical history, family history andsocial history today. REVIEW OF SYSTEMS All other [...] neuropathy, with long-term current use of insulin ([facility]) - ICD9: 250.60, 357.2, V58.67, ICD10: E11.40, Z79.4 (primary diagnosis) - Controlled - get labs. - CONSULT TO OPHTHALMOLOGY 2. Encounter for immunization - ICD9: V03.89, ICD10: Z23 - PNEUMOCOCCAL VACCINE (PREVNAR 20) - [employer] COVID-19 BIVALENT BOOSTER VACCINE, AGE 12+ YR 3. Morbid obesity with BMI of 50.0-59.9, adult ([facility]) - ICD9: 278.01, V85.43, ICD10: E66.01, Z68.43 - work on diet. 4. Chronic bronchitis, simple ([facility]) - ICD9: 491.0, ICD10: J41.0 - continue meds. 5. Type 2 diabetes mellitus with microalbuminuria, with long-term current use of insulin ([facility]) - ICD9: 250.40, 791.0, V58.67, ICD10: E11.29, R80.9, Z79.4 - Controlled - Continue current medications - HGB A1C - COMP METABOLIC PANEL - ALBUMIN/CREAT RATIO RND UR - CONSULT TO OPHTHALMOLOGY 6. Bipolar 1 disorder (HCC) - ICD9: 296.7, ICD10: F31.9 - stable. [...] ICD9: 791.0, ICD10: R80.9 - cannot take estefani etc. Work on better bp control 15. Screening for lung cancer - ICD9: V76.0, ICD10: Z12.2 - CONSULT LUNG CANCER SCREENING CLINIC 16. Screening for colon cancer - ICD9: V76.51, ICD10: Z12.11 - COLOGUARD Alyson Arthur MD documented in this encounterPeoples Hospital04-05-2023 Miscellaneous Notes* Telephone Encounter - Aminah Escudero LPN - 05/18/2022 5:19 PM EDT Completed and faxed. * Telephone Encounter - Bebeto Haro LPN - 05/18/2022 4:16 PM EDT Type of form: DME/CPAP supplies Form received via fax When form is completed, Fax form to [phone] Form has been forwarded to Physician Mailbox: Dr. Jerson Haro LPN documented in this encounterPeoples Hospital03-07-2023 History of Present illness Narrative* Gissell Roman - 04/19/2022 12:30 PM EST Kiel Catherine is identified through a medication adherence outreach initiative based on pharmacy claims data from [employer] (insurer) for Statin medication(s). Patient is reviewed [...] fill date per reconcile dispense Gissell Roman Room Service Food Server documented in this encounterPeoples Hospital02-07-2023 History of Present illness Narrative* Aria Lr MA - 03/22/2022 9:09 AM EST POPULATION HEALTH NAVIGATION OUTREACH Action/FYI Due for: PCP follow up Colonoscopy Dilated Retinal Exam A1c Flu shot Left VM; no MyChart Patient Identified by Name and : NO Outreach Outcome/Action Unable to reach patient: Left message Did you use a PCP flex slot to schedule this appointment? N/A Reason for Outreach Care Gap or Scheduling/Wellness visits Payer: Payor: [employer] AND [employer] / Plan: [employer] H[employer] / Product Type: HMO / Care [...] 22, 2022 9:10 AM documented in this encounterPeoples Hospital02-06-2023 Miscellaneous Notes* Telephone Encounter - Tony Palma RN - 03/21/2022 4:10 PM EST Patient has been identified by name and [...] 9.6 03/20/2020 9.4 Please advise. Thank you. Tony Palma RN documented in this [facility] Miscellaneous Notes* Telephone Encounter - July Aguilar Chris BRIONES - 03/02/2022 11:47 AM EST Patient has been identified by name and [...] you. July Perez LPN documented in [facility] encounterPeoples [facility]01-03-2023 Miscellaneous Notes* Telephone Encounter - Apple Allen RN - 02/15/2022 1:47 PM EST Kate from [facility] calls and states that they have not been able to get Trulicity 3 mg in stock. Kate asking if provider can write a prescription for Trulicity 1.5 mg and for patient to take 2 injections a week to equal 3 mg? Please review and advise, Apple Allen RN documented in this encounterPeoples Hospital12-22-2022 Miscellaneous Notes* Telephone Encounter - Joan Gallardo RN - 02/03/2022 9:06 AM EST Patient has been identified by name and [...] you. Joan Gallardo RN documented in this encounterPeoples Hospital11-14-2022 Miscellaneous Notes* Telephone Encounter - Marzena Puckett [facility] - 12/27/2021 12:47 PM EST Patient has been identified by name and date of : Yes Requested Prescriptions Pending Prescriptions Disp Refills insulin glargine (LANTUS SOLOSTAR U-100 INSULIN) 100 unit/mL (3 mL) 6 Each 1 Sig: Inject 20 Units subcutaneously daily at bedtime. RX INSTRUCTIONS: Patient aware RX will be sent to pharmacy. No need to notify patient. [facility] documented in this encounterPeoples Hospital10-05-2022 Miscellaneous Notes* Telephone Encounter - Marley Bradley LPN - 11/17/2021 11:44 AM EDT [place] calling for refill ESSIE: 10/22/21 NOV: 11/22/21 Last Refill: 10/15/21 #120 0 refills Marley Bradley LPN documented in this encounterPeoples Hospital10-03-2022 Miscellaneous Notes* Telephone Encounter - Scott Cabrera RN - 11/15/2021 12:01 PM EDT Patient returned call and given provider's message below with verbalized understanding. * Telephone Encounter - Aminah Escudero LPN - 11/12/2021 4:59 PM EDT Left message for patient to call office. * Telephone Encounter - Alyson Arthur MD - 11/12/2021 3:52 PM EDT Sugars too high. Increase trulicity to 3.0 mg a week. Call sugars in two weeks. * Telephone Encounter - Apple Allen RN - 11/12/2021 3:29 PM EDT Patient calls with updated blood sugar readings: Date AM PM 11/06 241 254 11/07 250 275 11/08 268 291 11/09 200 11/10 332 11/11 302 217 11/12 320 Apple Allen RN documented in this encounterPeoples Hospital09-23-2022 Miscellaneous Notes* Telephone Encounter - Alyson Arthur MD - 11/05/2021 4:51 PM EDT Rx sent. * Telephone Encounter - Tony Palma RN - 11/05/2021 12:52 PM EDT Pt called in asking if the provider would order him the FreeStyle Anahi. He states he sticks his finger 3-5 times day. On his lancets and test strips it only says to check his blood sugar 1-2 times aday. In order to be eligible for the Anahi you have to have it say to check at least 3 times a day.Please call and advise. Patient has been identified by name and date of : Yes Patient phones for refill(s): Requested Prescriptions Pending Prescriptions Disp Refills flash glucose scanning reader (FREESTYLE ANAHI 2 READER) flash glucose sensor (FREESTYLE ANAHI 2 SENSOR) kit Date of last office visit in primary care: 10/22/21 Future visit: 11/22/21 Last 2 Encounter Wt Readings: Date: Wt: 10/22/2021 128.8 kg (284 lb) 10/18/2021 130.5 kg (287 lb 12.8 oz) Previous labs/tests for medication: Diabetes: Hemoglobin A1C (%) Date Value 10/27/2021 10.1 05/03/2021 10.3 06/24/2020 9.6 03/20/2020 9.4 Please advise. Thank you. Tony Palma RN documented in this encounterPeoples Hospital09-22-2022 Miscellaneous Notes* Telephone Encounter - Allison Omalley - 11/04/2021 8:37 AM EDT Tried patient at # [phone] with no answer. VM verified. Left detailed message explaining that we needed to speak with him regarding his elevated A1c and change to insulin. Advised him to call back. Tried other # on file [phone] and received busy signal multiple times. Letter mailed to patient. Allison Omalley * Telephone Encounter - Elma Guthrie Ma - 11/02/2021 10:07 AM EDT Left message for patient to return call. Elma Guthrie Ma * Telephone Encounter - Bebeto Haro LPN - 10/29/2021 9:04 AM EDT TC to pt, left message to return call to office. Bebeto Haro LPN * Telephone Encounter - Scott Livingston PA-C - 10/29/2021 7:54 AM EDT Please advise [id number] remains elevated 10.2% Has been on trulicity 1.5mg since 10/15/21 < a month so we will need to see effect after 4 weeks. Please confirm he is using Trulicity as we discussed last visit as he did not acknowledge it on medreview. I would recommend we increase lantus to [...] M Gregory Barton, PA-C documented in this encounterPeoples Hospital09-21-2022 History of Present illness Narrative* Miriam Smith MA - 11/03/2021 11:35 AM EDT POPULATION HEALTH NAVIGATION OUTREACH Action/I Patient due for colonoscopy and flu. Left message to call office. 11/03/2021 1:24 PM Pt identified by name and : NO Outreach Outcome/Action Unable to reach patient: Left message Did you use a PCP flex slot to schedule this appointment? N/A Reason for Outreach Care Gap or Scheduling/Wellness visits Payer: Payor: JEFF [employer] / Plan: [employer]arte [employer] HMO / Product Type: HMO / Care [...] 03, 2021 1:23 PM documented in this encounterPeoples Hospital09-09-2022 History of Present illness Narrative* Scott Livingston PA-C - 10/22/2021 2:23 PM EDT 61 year old [place]/o here for wellness visit and problem review. Concerned about diabetes and recent prednisone 10/18/2021 patient presented to [facility] with complaints of runny nose, headache, shortness of breath which he states has been persistent over approximately 2 months. Patient's home O2 satswere running 91%, usually 96 to 97% patient sent to [facility] emergency department. Has been sick over 2 months with respiratory illness but later identifies since former visit in 12/13/20 and 01/04/2021. 10/18/2021 presented to [facility] ER with complaint of same cough with history of bronchitis and asthma in the past. At that time denied chest pain, fever, chills, body aches, nausea, vomiting or diarrhea. Vital signs 97.8 [id number], recheck 164/66, 94% on room air. Chest x-ray demonstrated no evidence of focal airspace disease. Patient was diagnosed with asthma flare with cough, discharged in stable condition on prednisone 50mg daily for 5 days, albuterol 90 MCG [...] above patient denies active shortness of breath howeverhe does have dyspnea on exertion of walking 100 to 200 feet or doing any strenuous exercise. This has progressively worsened over the last several months. breathing Nonrheumatic aortic valve stenosis (primary encounter diagnosis) Bicuspid aortic valve Lvh (left ventricular hypertrophy) Primary hypertension Cardiovascular interval hx: 09/27/2018 PVR: R LAMONT 1.04, R TBI 0.97. Left ALMONT 1.01, left TBI 1.03 08/10/2018 echocardiogram: LV size WNL, grade 1 LVDD. RV not seen or interrogated, RVSP unable to report. LA size WNL, RA unable to measure. Moderate aortic stenosis: Peak/mean 50/35 mmHg, DVI 0.25. Overall LV function on limited views appears grossly normal. 11/01/2016 echocardiogram: Suboptimal image quality, ejection fraction not measurable, stage I LVDD,LA size WNL, RA unable to measure. MV WNL, TV not seen or interrogated, trivial TI. AV: Mild aorticvalve stenosis, peak/mean gradient 39/21 mmHg, DVI 0.39. Mid ascending aorta 3.8 cm. No pericardialeffusion. 04/24/2015 echocardiogram: Moderate concentric LVH, grade 1 [...] wall abnormalities. No mitral abnormalities, trivial TR, possiblebicuspid aortic valve with mild aortic valve stenosis [...] night and hourly during the day. Drinking alot: diet soda with caffeine. Any recent illness? [...] Restrictive lung disease Chronic bronchitis, simple (hcc) Copy Operator: none currently. Interval history: 02/20/2013 Dr. Reuben Thompson: Start CPAP at 15 cm H2O, with low threshold to go to BiPAP or ASV if needed for central apnea 11/30/1998 PSG demonstrated severe obstructive sleep apnea, frequent apneas, loud snoring, moderatedesaturation with oxygen and arousals. Sleep latency normal [...] at 5.24 131% of predicted. Conclusion mild restrictiveventilatory impairment no evidence of obstructive lung disease. [...] Disease Brother other (Myocardial infarc) Brother Fatal [place] PAST MEDICAL HISTORY Diagnosis Date Anxiety Atrial septal defect and mitral stenosis Bicuspid aortic valve Bipolar 1 disorder ([facility]) Chronic obstructive pulmonary disease (COPD) ([facility]) Coronary artery disease Degenerative disc disease sees Dr. Sellers Diabetic neuropathy ([facility]) DM (diabetes mellitus) ([facility]) HTN (hypertension) Hyperkalemia Hyperlipidemia Hypogonadism male LVH (left ventricular hypertrophy) Morbid obesity ([facility]) MANISH on CPAP Pain management Dr. 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 4capsule 11 budesonide-formoterol (SYMBICORT) 80-4.5 mcg/actuation inhaler Inhale [...] 1 application to affected area once daily. 1Tube 11 oxycodone myristate (XTAMPZA ER ORAL) Take 18 mg by mouth twice daily. Blood-Glucose Meter [facility] [place] Dispense 1 kit 1 Each 0 blood sugar diagnostic (FREESTYLE LITE STRIPS) test strip TEST BLOOD SUGAR 1-2 TIMES DAILY 100 Strip 11 benzonatate (TESSALON PERLES) 100 mg capsule Take 1 capsule by mouth three times daily as needed. (Patient not taking: Reported on 10/18/2021) 30 capsule 0 FLUoxetine (PROZAC) 20 mg capsule Take 1 capsule by mouth once daily. (Patient not taking: Reportedon 10/22/2021) 30 capsule 2 QUEtiapine (SEROQUEL) 25 [...] hours total, naps in evening. Diet: not balanced, lives on disability Any routine health measures: none. Tobacco use: 1.25 ppd. Caffeine use: [employer] 96oz. ETOH use: none. Marijuana use: none. Illicit drug use: none. Eyes: denies glaucoma, + cataracts. Reading glasses. Last eye exam: 5 year. EENT: +recurrent sinus infection. Denies unusual nasal drainage. Denies hoarsemess, sore throat, orrecurrent sore in mouth or tongue. Cardiovascular: denies chest/ left arm, upper back pain. No resting SOB, dyspnea with exertion lessthan 100 feet walking. Notes from pulmonology as [...] vomiting, change in appetite. No change in bowelhabits. Denies constipation, diarrhea, rectal bleeding or hemorrhoids, [...] Alert and oriented all spheres. Normal affect andcognition. Speech normal. No deficits to learning or [...] distal third of lower legs to feet.. Extremitiesare warm and pink with prompt capillary refill. [...] unspecified age-related cataract type - ICD9: 366.10, ICD10:H25.9 - CONSULT TO OPHTHALMOLOGY 15. Vitamin D [...] which included preparing to see the patient, [id number] patient care, completing clinical documentation, obtaining and/or reviewing separately obtained history, performing a medically appropriate examination, counseling and educating the pat ient/family/caregiver, ordering medications, tests, or procedures, communicating with other HCPs (not separately reported), independently interpreting results (not separately reported), communicatingresults to the patient/family/caregiver, and care coordination (not separately reported). Scott Livingston PA-C documented in this encounterPeoples Hospital09-02-2022 Miscellaneous Notes* Telephone Encounter - Bebeto Haro LPN - 10/15/2021 11:08 AM EDT Please assist pt with scheduling follow up appt with PCP or a member of PCP team (Keith or Angela) * Telephone Encounter - Alyson Arthur MD - 10/15/2021 10:36 AM EDT Due for follow up visit. * Telephone Encounter - Scott Cabrera RN - 10/15/2021 10:05 AM EDT Patient has been identified by name and [...] Date of last office visit with pcp: 3-21-22. Next appt: none Last 2 Encounter Wt [...] you. Scott Cabrera RN documented in this encounterPeoples Hospital08-11-2022 History of Present illness Narrative* Apple Valadez Population Health Navigator - 09/23/2021 1:51 PM EDT POPULATION HEALTH NAVIGATION OUTREACH Action/FYI Vm left for a return call Due for wellness, colonoscopy, A1c, GAUDENCIO Pt identified by name and : NO Outreach Outcome/Action Unable to reach patient: Left message Did you use a PCP flex slot to schedule this appointment? No Reason for Outreach Care Gap or Scheduling/Wellness visits Payer: Payor: JEFF [employer] AND [employer] / Plan: JEFF [employer] HMO / Product Type: HMO / Care [...] 23, 2021 1:52 PM documented in [place] encounterLindsay [place] [address]-04-2022 Miscellaneous Notes* Telephone Encounter - July Aguilar Chris FAROOQN - 09/16/2021 1:36 PM EDT Patient has been identified by name and [...] you. July Perez LPN documented in this encounterPeoples Hospital07-12-2022 Miscellaneous Notes* Telephone Encounter - Yoly Murray LPN - 08/24/2021 10:50 AM EDT Last OV: 05/03/21 - No future appts [...] patient. Yoly Murray LPN documented in this encounterPeoples Hospital06-07-2022 Miscellaneous Notes* Telephone Encounter - Apple Allen RN - 07/20/2021 4:16 PM EDT Patient has been identified by name and [...] you. Apple Allen RN documented in this encounterPeoples Hospital06-02-2022 History of Present illness Narrative* Nga Hawk MA - 07/15/2021 10:22 AM EDT POPULATION HEALTH NAVIGATION OUTREACH Action/FYI Tried to [...] Gap or Scheduling/Wellness visits Payer: Payor: JEFF [employer] AND [employer] / Plan: [employer] HMO / Product Type: HMO / Care [...] 15, 2021 10:22 AM documented in this encounterPeoples Hospital05-12-2022 Miscellaneous Notes* Telephone Encounter - Ya Brewster Pss - 06/24/2021 11:51 AM EDT Patient has been identified by name and [...] patient. Ya Brewster Pss documented in this encounterPeoples Hospital05-02-2022 History of Present illness Narrative* Karen Romero RN - 06/14/2021 9:56 AM EDT [facility] Enrollment Provider Action/FYI: will have pt return call Patient referred by: [facility] Miguelito Contact made with patient: Yes - Patient identified by name and . Discussed care with patient Saeed this is Karen Gallagher RN and I am calling from Alyson Arthur MD [facility]. I am a RN Risk Compliance Manager with our [facility] program. Dariel Arthur MD wanted me to reach out [...] few questions once a week through your [employer] account. It will automatically show up for you to complete. There are simple questions that will help us identify if you have any concerns or symptoms and I will call you to help get what you need. We will be able to connect you, review your symptoms, do an on demand visit, or communicate with Alyson Arthur MD if needed. I am going to sign you up for the program now. Enrollment Questions: Let's get you enrolled in the program. No, reason: Other: Pt never returned call Closing: Patient does not meet criteria. PCC to reassess patient in a month. documented in this encounterPeoples Hospital04-15-2022 Miscellaneous Notes* Telephone Encounter - Alexandra Osborn LPN - 05/28/2021 11:58 AM EDT Patient has been identified by name and [...] you. Alexandra Osborn LPN documented in this encounterPeoples Hospital11-15-2021 History of Present illness Narrative* Ana Maria Preston RT(R) - 12/28/2020 4:30 PM EST Radiology Service Progress Note PATIENT NAME: Kiel Catherine DATE OF SERVICE: December 28, 2020 TIME: 4:36 PM PATIENT IDENTITY VERIFICATION COMPLETED USING TWO (2) IDENTIFIERS: Name and Date of confirmedby patient verbally. FALL SCREENING: Has the patient had 2 falls in the last year or 1 fall with injury or currently using an Ambulatory Assistive Device (Walker, Cane, Wheelchair, Crutches, etc.)? No PATIENT GENDER DATA: Male PATIENT RELEVANT IMPLANT DATA REVIEWED: Yes RADIOLOGY DEPARTMENT: General X-ray: Exam(s) Completed: Chest X-Ray PERIPHERAL IV DATA: Not applicable SIGNED BY: RT Terrance(R) December 28, 2020 4:36 PM documented in this encounterPeoples Hospital10-04-2021 Miscellaneous Notes* Telephone Encounter - Marley Bradley LPN - 11/16/2020 3:12 PM EDT [facility] calling for refills. ESSIE: 06/18/20 NOV: None scheduled Marley Bradley LPN documented in this encounterPeoples Hospital03-03-2021 History of Present illness Narrative* Martha Mobley (Rt)Miguel Ángel - 04/15/2020 3:50 PM EST Radiology Service Progress Note PATIENT NAME: Kiel Catherine DATE OF SERVICE: April 15, 2020 TIME: 4:12 PM PATIENT IDENTITY VERIFICATION COMPLETED USING TWO (2) IDENTIFIERS: Name and Date of confirmedby patient verbally. FALL SCREENING: Has the patient had 2 falls in the last year or 1 fall with injury or currently using an Ambulatory Assistive Device (Walker, Cane, Wheelchair, Crutches, etc.)? No PATIENT GENDER DATA: Male PATIENT RELEVANT IMPLANT DATA REVIEWED: Not Applicable RADIOLOGY DEPARTMENT: General X-ray: Exam(s) Completed: Upper Extremity X- Ray(s): Wrist, left : PERIPHERAL IV DATA: Not applicable SIGNED BY: RT Jenny April 15, 2020 4:12 PM documented in this encounterPeoples Hospital04-01-2014 History of Past illness Narrative* Problem Noted Date Resolved Date Tendinitis of left wrist 05/14/2013 023 Atrial septal defect and mitral stenosis 11/30/2012 documented as of this encounter (statuses as of 05/21/2022) [facility] Narrative* Problem Noted Date Resolved Date Tendinitis of left wrist 05/14/2013 023 Atrial septal defect and mitral stenosis 11/30/2012 documented as of this encounter (statuses as of 05/23/2022) [facility] Narrative* Problem Noted Date Resolved Date Tendinitis of left wrist 05/14/2013 023 Atrial septal defect and mitral stenosis 11/30/2012 documented as of this encounter (statuses as of 05/25/2022) [facility] Narrative* Problem Noted Date Resolved Date Tendinitis of left wrist 05/14/2013 023 Atrial septal defect and mitral stenosis 11/30/2012 documented as of this encounter (statuses as of 05/30/2022) [facility] Narrative* Problem Noted Date Resolved Date Tendinitis of left wrist 05/14/2013 023 Atrial septal defect and mitral stenosis 11/30/2012 documented as of this encounter (statuses as of 05/31/2022) [facility] Narrative* Problem Noted Date Resolved Date Tendinitis of left wrist 05/14/201305/20/2 023 Atrial septal defect and mitral stenosis 11/30/2012 documented as of this encounter (statuses as of 06/25/2022) [facility] Narrative* Problem Noted Date Resolved Date Tendinitis of left wrist 05/14/2013 023 Atrial septal defect and mitral stenosis 11/30/2012 documented as of this encounter (statuses as of 06/29/2022) [facility] Narrative* Problem Noted Date Resolved Date Tendinitis of left wrist 05/14/2013 023 Atrial septal defect and mitral stenosis 11/30/2012 documented as of this encounter (statuses as of 07/15/2022) [facility] Narrative* Problem Noted Date Resolved Date Tendinitis of left wrist 05/14/2013 023 Atrial septal defect and mitral stenosis 11/30/2012 documented as of this encounter (statuses as of 07/16/2022) [facility] Narrative* Problem Noted Date Resolved Date Tendinitis of left wrist 05/14/2013 023 Atrial septal defect and mitral stenosis 11/30/2012 documented as of this encounter (statuses as of 07/20/2022) [facility] Narrative* Problem Noted Date Resolved Date Tendinitis of left wrist 05/14/20132 023 Atrial septal defect and mitral stenosis 11/30/2012 documented as of this encounter (statuses as of 08/09/2022) [facility] Narrative* Problem Noted Date Resolved Date Tendinitis of left wrist 05/14/201307/2 023 Atrial septal defect and mitral stenosis 11/30/2012 documented as of this encounter (statuses as of 08/10/2022) [facility] Narrative* Problem Noted Date Resolved Date Tendinitis of left wrist 05/14/2013 023 Atrial septal defect and mitral stenosis 11/30/2012 documented as of this encounter (statuses as of 08/13/2022) [place] [id number] History of Past illness Narrative* Problem Noted Date Resolved Date Tendinitis of left wrist 05/14/2013 023 Atrial septal defect and mitral stenosis 11/30/2012 documented as of this encounter (statuses as of 08/18/2022) [facility] Narrative* Problem Noted Date Diagnosed Date Resolved Date Tendinitis of left wrist 05/14/201308/2022 Atrial septal defect and mitral stenosis 11/30/2012 documented as of this encounter (statuses as of 09/29/2022) [place] [id number] History of Past illness Narrative* Problem Noted Date Diagnosed Date Resolved Date Tendinitis of left wrist 05/14/201308/2022 Atrial septal defect and mitral stenosis 11/30/2012 documented as of this encounter (statuses as of 10/03/2022) [facility] Narrative* Problem Noted Date Diagnosed Date Resolved Date Tendinitis of left wrist 05/14/201308/2022 Atrial septal defect and mitral stenosis 11/30/2012 documented as of this encounter (statuses as of 10/04/2022) [facility] Narrative* Problem Noted Date Diagnosed Date Resolved Date Tendinitis of left wrist 05/14/201308/2022 Atrial septal defect and mitral stenosis 11/30/2012 documented as of this encounter (statuses as of 10/05/2022) [facility]arrative* Problem Noted Date Diagnosed Date Resolved Date Tendinitis of left wrist 05/14/201308/2022 Atrial septal defect and mitral stenosis 11/30/2012 documented as of this encounter (statuses as of 10/07/2022) [facility] Narrative* Problem Noted Date Diagnosed Date Resolved Date Tendinitis of left wrist 05/14/201308/2022 Atrial septal defect and mitral stenosis 11/30/2012 documented as of this encounter (statuses as of 10/12/2022) [facility] Narrative* Problem Noted Date Diagnosed Date Resolved Date Tendinitis of left wrist 05/14/201308/2022 Atrial septal defect and mitral stenosis 11/30/2012 documented as of this encounter (statuses as of 10/14/2022) [facility] Narrative* Problem Noted Date Diagnosed Date Resolved Date Tendinitis of left wrist 05/14/201308/2022 Atrial septal defect and mitral stenosis 11/30/2012 documented as of this encounter (statuses as of 10/20/2022) [facility] Narrative* Problem Noted Date Diagnosed Date Resolved Date Tendinitis of left wrist 05/14/201308/2022 Atrial septal defect and mitral stenosis 11/30/2012 documented as of this encounter (statuses as of 10/26/2022) [facility] Narrative* Problem Noted Date Diagnosed Date Resolved Date Tendinitis of left wrist 05/14/201308/2022 Atrial septal defect and mitral stenosis 11/30/2012 documented as of this encounter (statuses as of 10/26/2022) [facility] Narrative* Problem Noted Date Diagnosed Date Resolved Date Tendinitis of left wrist 05/14/201308/2022 Atrial septal defect and mitral stenosis 11/30/2012 documented as of this encounter (statuses as of 10/27/2022) [facility] illness Narrative* Problem Noted Date Diagnosed Date Resolved Date Tendinitis of left wrist 05/14/201308/2022 Atrial septal defect and mitral stenosis 11/30/2012 documented as of this encounter (statuses as of 10/31/2022) [facility] History of Past illness Narrative* Problem Noted Date Diagnosed Date Resolved Date Tendinitis of left wrist 05/14/201308/2022 Atrial septal defect and mitral stenosis 11/30/2012 documented as of this encounter (statuses as of 11/01/2022) [facility] History of Past illness Narrative* Problem Noted Date Diagnosed Date Resolved Date Tendinitis of left wrist 05/14/201308/2022 Atrial septal defect and mitral stenosis 11/30/2012 documented as of this encounter (statuses as of 11/02/2022) [facility] History of Past illness Narrative* Problem Noted Date Diagnosed Date Resolved Date Tendinitis of left wrist 05/14/201308/2022 Atrial septal defect and mitral stenosis 11/30/2012 documented as of this encounter (statuses as of 11/09/2022) [facility] History of Past illness Narrative* Problem Noted Date Diagnosed Date Resolved Date Tendinitis of left wrist 05/14/201308/2022 Atrial septal defect and mitral stenosis 11/30/2012 documented as of this encounter (statuses as of 11/19/2022) [facility] History of Past illness Narrative* Problem Noted Date Diagnosed Date Resolved Date Tendinitis of left wrist 05/14/201308/2022 Atrial septal defect and mitral stenosis 11/30/2012 documented as of this encounter (statuses as of 11/22/2022) [facility] History of Past illness Narrative* Problem Noted Date Diagnosed Date Resolved Date Tendinitis of left wrist 05/14/201308/2022 Atrial septal defect and mitral stenosis 11/30/2012 documented as of this encounter (statuses as of 11/24/2022) [facility] History of Past illness Narrative* Problem Noted Date Diagnosed Date Resolved Date Tendinitis of left wrist 05/14/201308/2022 Atrial septal defect and mitral stenosis 11/30/2012 documented as of this encounter (statuses as of 11/25/2022) [facility] History of Past illness Narrative* Problem Noted Date Diagnosed Date Resolved Date Tendinitis of left wrist 05/14/201308/2022 Atrial septal defect and mitral stenosis 11/30/2012 documented as of this encounter (statuses as of 11/25/2022) [facility] History of Past illness Narrative* Problem Noted Date Diagnosed Date Resolved Date Tendinitis of left wrist 05/14/201308/2022 Atrial septal defect and mitral stenosis 11/30/2012 documented as of this encounter (statuses as of 11/30/2022) [facility] History of Past illness Narrative* Problem Noted Date Diagnosed Date Resolved Date Tendinitis of left wrist 05/14/201308/2022 Atrial septal defect and mitral stenosis 11/30/2012 documented as of this encounter (statuses as of 12/01/2022) [facility] History of Past illness Narrative* Problem Noted Date Diagnosed Date Resolved Date Tendinitis of left wrist 05/14/201308/2022 Atrial septal defect and mitral stenosis 11/30/2012 documented as of this encounter (statuses as of 12/01/2022) [facility] History of Past illness Narrative* Problem Noted Date Diagnosed Date Resolved Date Tendinitis of left wrist 05/14/201308/2022 Atrial septal defect and mitral stenosis 11/30/2012 documented as of this encounter (statuses as of 12/07/2022) [facility] History of Past illness Narrative* Problem Noted Date Diagnosed Date Resolved Date Tendinitis of left wrist 05/14/201308/2022 Atrial septal defect and mitral stenosis 11/30/2012 documented as of this encounter (statuses as of 12/09/2022) [facility] History of Past illness Narrative* Problem Noted Date Diagnosed Date Resolved Date Tendinitis of left wrist 05/14/201308/2022 Atrial septal defect and mitral stenosis 11/30/2012 documented as of this encounter (statuses as of 12/09/2022) [facility] History of Past illness Narrative* Problem Noted Date Diagnosed Date Resolved Date Tendinitis of left wrist 05/14/201308/2022 Atrial septal defect and mitral stenosis 11/30/2012 documented as of this encounter (statuses as of 12/13/2022) [facility] History of Past illness Narrative* Problem Noted Date Diagnosed Date Resolved Date Tendinitis of left wrist 05/14/201308/2022 Atrial septal defect and mitral stenosis 11/30/2012 documented as of this encounter (statuses as of 12/18/2022) [facility] History of Past illness Narrative* Problem Noted Date Diagnosed Date Resolved Date Tendinitis of left wrist 05/14/201308/2022 Atrial septal defect and mitral stenosis 11/30/2012 documented as of this encounter (statuses as of 12/21/2022) [address]-2014 History of Past illness Narrative* Problem Noted Date Diagnosed Date Resolved Date Tendinitis of left wrist 05/14/201308/2022 Atrial septal defect and mitral stenosis 11/30/2012 documented as of this encounter (statuses as of 12/22/2022) [address]2014 History of Past illness Narrative* Problem Noted Date Diagnosed Date Resolved Date Tendinitis of left wrist 05/14/201308/2022 Atrial septal defect and mitral stenosis 11/30/2012 documented as of this encounter (statuses as of 12/27/2022) [address]2014 History of Past illness Narrative* Problem Noted Date Diagnosed Date Resolved Date Tendinitis of left wrist 05/14/201308/2022 Atrial septal defect and mitral stenosis 11/30/2012 documented as of this encounter (statuses as of 12/28/2022) [place] [address]-01-2014 History of Past illness Narrative* Problem Noted Date Diagnosed Date Resolved Date Tendinitis of left wrist 05/14/201308/2022 Atrial septal defect and mitral stenosis 11/30/2012 documented as of this encounter (statuses as of 12/30/2022) [facility] History of Past illness Narrative* Problem Noted Date Diagnosed Date Resolved Date Tendinitis of left wrist 05/14/201308/2022 Atrial septal defect and mitral stenosis 11/30/2012 documented as of this encounter (statuses as of 01/10/2023) [facility] History of Past illness Narrative* Problem Noted Date Diagnosed Date Resolved Date Tendinitis of left wrist 05/14/201308/2022 Atrial septal defect and mitral stenosis 11/30/2012 documented as of this encounter (statuses as of 01/28/2023) [facility] History of Past illness Narrative* Problem Noted Date Diagnosed Date Resolved Date Tendinitis of left wrist 05/14/201308/2022 Atrial septal defect and mitral stenosis 11/30/2012 documented as of this encounter (statuses as of 03/17/2023) [facility] History of Past illness Narrative* Problem Noted Date Diagnosed Date Resolved Date Tendinitis of left wrist 05/14/201308/2022 Atrial septal defect and mitral stenosis 11/30/2012 documented as of this encounter (statuses as of 03/17/2023) [facility] History of Past illness Narrative* Problem Noted Date Diagnosed Date Resolved Date Tendinitis of left wrist 05/14/201308/2022 Atrial septal defect and mitral stenosis 11/30/2012 documented as of this encounter (statuses as of 03/17/2023) [facility] History of Past illness Narrative* Problem Noted Date Diagnosed Date Resolved Date Tendinitis of left wrist 05/14/201308/2022 Atrial septal defect and mitral stenosis 11/30/2012 documented as of this encounter (statuses as of 03/17/2023) [facility] History of Past illness Narrative* Problem Noted Date Diagnosed Date Resolved Date Tendinitis of left wrist 05/14/201308/2022 Atrial septal defect and mitral stenosis 11/30/2012 documented as of this encounter (statuses as of 03/17/2023) [facility] History of Past illness Narrative* Problem Noted Date Diagnosed Date Resolved Date Tendinitis of left wrist 05/14/201308/2022 Atrial septal defect and mitral stenosis 11/30/2012 documented as of this encounter (statuses as of 03/19/2023) [facility] History of Past illness Narrative* Problem Noted Date Resolved Date Atrial septal defect and mitral stenosis 11/30/2012 documented as of this encounter (statuses as of 05/28/2021) [facility] History of Past illness Narrative* Problem Noted Date Resolved Date Atrial septal defect and mitral stenosis 11/30/2012 documented as of this encounter (statuses as of 06/14/2021) [facility] History of Past illness Narrative* Problem Noted Date Resolved Date Atrial septal defect and mitral stenosis 11/30/2012 documented as of this encounter (statuses as of 06/23/2021) [facility] History of Past illness Narrative* Problem Noted Date Resolved Date Atrial septal defect and mitral stenosis 11/30/2012 documented as of this encounter (statuses as of 06/24/2021) [facility] History of Past illness Narrative* Problem Noted Date Resolved Date Atrial septal defect and mitral stenosis 11/30/2012 documented as of this encounter (statuses as of 07/15/2021) [facility] History of Past illness Narrative* Problem Noted Date Resolved Date Atrial septal defect and mitral stenosis 11/30/2012 documented as of this encounter (statuses as of 07/20/2021) [facility] History of Past illness Narrative* Problem Noted Date Resolved Date Atrial septal defect and mitral stenosis 11/30/2012 documented as of this encounter (statuses as of 08/24/2021) [facility] History of Past illness Narrative* Problem Noted Date Resolved Date Atrial septal defect and mitral stenosis 11/30/2012 documented as of this encounter (statuses as of 09/16/2021) [facility] History of Past illness Narrative* Problem Noted Date Resolved Date Atrial septal defect and mitral stenosis 11/30/2012 documented as of this encounter (statuses as of 09/23/2021) [facility] History of Past illness Narrative* Problem Noted Date Resolved Date Atrial septal defect and mitral stenosis 11/30/2012 documented as of this encounter (statuses as of 10/15/2021) [facility] History of Past illness Narrative* Problem Noted Date Resolved Date Atrial septal defect and mitral stenosis 11/30/2012 documented as of this encounter (statuses as of 10/23/2021) [facility] History of Past illness Narrative* Problem Noted Date Resolved Date Atrial septal defect and mitral stenosis 11/30/2012 documented as of this encounter (statuses as of 11/03/2021) [facility] History of Past illness Narrative* Problem Noted Date Resolved Date Atrial septal defect and mitral stenosis 11/30/2012 documented as of this encounter (statuses as of 11/04/2021) [facility] History of Past illness Narrative* Problem Noted Date Resolved Date Atrial septal defect and mitral stenosis 11/30/2012 documented as of this encounter (statuses as of 11/05/2021) [address]18-2013 History of Past illness Narrative* Problem Noted Date Resolved Date Atrial septal defect and mitral stenosis 11/30/2012 documented as of this encounter (statuses as of 11/15/2021) [facility] History of Past illness Narrative* Problem Noted Date Resolved Date Atrial septal defect and mitral stenosis 11/30/2012 documented as of this encounter (statuses as of 11/17/2021) [facility] History of Past illness Narrative* Problem Noted Date Resolved Date Atrial septal defect and mitral stenosis 11/30/2012 documented as of this encounter (statuses as of 12/28/2021) [facility] History of Past illness Narrative* Problem Noted Date Resolved Date Atrial septal defect and mitral stenosis 11/30/2012 documented as of this encounter (statuses as of 02/04/2022) [facility] History of Past illness Narrative* Problem Noted Date Resolved Date Atrial septal defect and mitral stenosis 11/30/2012 documented as of this encounter (statuses as of 02/17/2022) [facility] History of Past illness Narrative* Problem Noted Date Resolved Date Atrial septal defect and mitral stenosis 11/30/2012 documented as of this encounter (statuses as of 03/02/2022) [facility] History of Past illness Narrative* Problem Noted Date Resolved Date Atrial septal defect and mitral stenosis 11/30/2012 documented as of this encounter (statuses as of 03/22/2022) [facility] History of Past illness Narrative* Problem Noted Date Resolved Date Atrial septal defect and mitral stenosis 11/30/2012 documented as of this encounter (statuses as of 03/22/2022) [address]18[address]2013 History of Past illness Narrative* Problem Noted Date Resolved Date Atrial septal defect and mitral stenosis 11/30/2012 documented as of this encounter (statuses as of 04/19/2022) [facility] History of Past illness Narrative* Problem Noted Date Resolved Date Atrial septal defect and mitral stenosis 11/30/2012 documented as of this encounter (statuses as of 05/19/2022) [facility] June 22, 2023 4:32pm Note Date/Time June 22, 2023 4:32pm [facility] Medical Records Department [address] [place] [address] Consultation - Surgical 06/22/23 1625 MR#: [id number] Acct: [id number] Name: KIEL CATHERINE Rep #:[id number] : 1960 62 From: Raj márquez MD PCP: Dr. Alyson Arthur MD Status:REG E R Location: ED Assessment & Plan Assessment/Plan (1) Small bowel obstruction: PLAN: The patient presented with abdominal pain and nausea and vomiting a CT scan revealed a bowel obstruction. The patient has decompressed distal small bowel and distended proximal small bowel with stomach dilation. There is concern for ischemia due to the presence of edema in the mesentery on CT scan. On physical exam the patient is distended with some tenderness in the supraumbilical area. He does not have any guarding or rebound tenderness. White count is elevated with some left shift. The patient has an odd presentation. He had recent cardiac surgery and CVA. Heis diabetic as well. The patient has had 3 bowel obstruction since surgery in March but has not had any abdominal surgeries. Patient is also on Eliquis and aspirin. He reports that his last 3 bowel obstructions have resolved spontaneously. I would like to have the patient admitted to medicine for medical management and have an NG placed. I will reorder an x-ray in the morning. Possibly consult cardiology as well as the patient has a significant and recent cardiac surgery history. If the Eliquis and aspirin are able to be held that would be helpful. If labs worsen or physical exam worsens tomorrow wewill take him for surgery and explore. At this time the patient does not have any peritoneal signs or fever and would be high risk due to blood thinners and recent cardiac history and recent stroke history. If the patient worsens and there is concern for bowel I will take him to surgery on his blood thinners. Raj Stevenson MD Pager: [facility] [address] [place], [place] [address], [address] [place] [address] Office: HPI Consult Data Date of Consult: 06/22/23 HPI Narrative HPI Narrative: KIEL CATHERINE, is a 62 M who presents with nausea and vomiting. The patient has a complicated medical history. He also is a poor historian. Patient says that he had bicuspid valve replacement in March [facility]. He says hehad a CVA during the surgery. He says that he developed a bowel obstruction after the surgery. He has had 2 other bowel obstructions treated at [facility]. He says they were treated nonoperatively. The patient reports no previous abdominal surgeries. He says his mid upper abdomen is painful. He says he had a bowel movement yesterday and feels like he has to have another 1. He denies acute pain and says that it comes and goes. [facility] Medical History Anxiety Asthma Atherosclerotic heart disease of [place] coronary artery without angina pectoris Atrial septal defect and mitral stenosis Bicuspid aortic valve Bipolar 1 disorder Carpal tunnel syndrome, bilateral Chronic pain COPD (chronic obstructive pulmonary disease) CPAP (continuous positive airway pressure) dependence Degenerative disc disease Diabetic neuropathy Essential (primary) hypertension GERD (gastroesophageal reflux disease) Hearing loss, left HLD (hyperlipidemia) Leaky heart valve LVH (left ventricular hypertrophy) Morbid obesity MANISH (obstructive sleep apnea) Pancreatitis Smoker Type II diabetes mellitus Home Medications diltiazem HCl 180 mg capsule,24 hr,extended release 180 mg PO DAILY 11/20/13 [History Last Taken Unknown] metformin 500 mg tablet 500 mg PO 4X/DAY 11/20/13 [History Last Taken Unknown] atorvastatin 10 mg tablet 10 mg PO QHS 11/03/16 [History Last Taken Unknown] dulaglutide 0.75 mg/0.5 mL subcutaneous pen injector (Trulicity) 3 mg SQ QWEEK DIABETES 11/03/16 [History Last Taken 10/07/22] glimepiride 2 mg tablet 4 mg PO DAILY 11/03/16 [History Last Taken Unknown] budesonide-formoterol HFA 80 mcg-4.5 mcg/actuation aerosol inhaler 2 puff inhalation BID 10/30/20 [History Last Taken Unknown] oxycodone myristate 18 mg capsule sprinkle extended release 12hr(DON'T CRUSH) (Xtampza ER) 18 mg PO BID 10/30/20 [History Last Taken Unknown] pantoprazole 40 mg tablet,delayed release 40 mg PO DAILY 10/30/20 [History Last Taken Unknown] acetaminophen 500 mg tablet 1,000 mg PO TID PRN Pain 10/18/21 [History Last Taken Unknown] albuterol sulfate 90 mcg/actuation aerosol inhaler (Ventolin HFA) 1 - 2 puff inhalation Q4H PRN PRN Wheezing #8.5 grams 10/18/21 [Rx Last Taken Unknown] carvedilol 3.125 mg tablet 3.125 mg PO BID BP 10/09/22 [History Last Taken Unknown] diclofenac potassium 25 mg capsule 25 mg PO BID PAIN 10/09/22 [History Last Taken Unknown] ergocalciferol (vitamin D2) 1,250 mcg (50,000 unit) capsule (Vitamin D2) 50,000 unit PO .MONDAY REPLACEMET 10/09/22 [History Last Taken Unknown] furosemide 40 mg tablet 40 mg PO DAILY #30 tabs 10/11/22 [Rx Last Taken Unknown] levofloxacin 750 mg tablet 750 mg PO DAILY #7 tabs 10/11/22 [Rx Last Taken Unknown] losartan 50 mg tablet 50 mg PO DAILY #30 tabs 10/11/22 [Rx Last Taken Unknown] potassium chloride 20 mEq tablet,extended release(part/cryst) (Klor-Con M) 20 meq PO DAILY #30 tabs 10/11/22 [Rx Last Taken Unknown] prednisone 20 mg tablet 40 mg (2 x 20 mg) PO BREAKFAST #6 tabs 10/11/22 [Rx Last Taken Unknown] insulin aspart U-100 100 unit/mL (3 mL) subcutaneous pen (Novolog FlexPen U-100 Insulin aspart) 2 unit subcut TID 10/14/22 [History Last Taken Unknown] insulin glargine 100 unit/mL (3 mL) subcutaneous pen 20 unit subcut HS 10/14/22 [History Last Taken Unknown] pregabalin 100 mg capsule (Lyrica) 100 mg PO .COMPLEX NEUROPATHY 10/14/22 [History Last Taken Unknown] Allergy/AdvReac Type Severity Reaction Status Date / Time Penicillins Allergy Hives Verified 06/22/23 14:08 fluticasone [From Flonase] AdvReac Severe Nose Bleeds Verified 06/22/23 14:08 lisinopril AdvReac Intermediate Upset Verified 06/22/23 14:08 Stomach NASAL SPRAY AdvReac Intermediate Chest Uncoded 10/09/22 14:22 tightness Family History Father Diabetes Dementia Mother CAD (coronary artery disease) CABG X4 Sister Diabetes Brother Ischemic heart disease Brother Myocardial infarction Surgical History History of back surgery Social History household members: spouse housing: house Smoking Status: Current every day smoker tobacco type: cigarettes Tobacco: How many years used: 45 alcohol intake: current alcohol intake frequency: holidays/special occasions only substance use type: does not use ROS Constitutional Constitutional: Denies anorexia, chills or fatigue Eyes Eyes: Denies blurry vision ENT HEENT: Denies abnormal hearing Cardiovascular Cardiovascular: Denies chest pain Respiratory/Chest Respiratory/Chest: Denies cough or dyspnea Gastrointestinal Gastrointestinal: Reports abdominal pain, nausea and vomiting Genitourinary Genitourinary: Denies change in urinary stream Musculoskeletal Musculoskeletal: Denies abnormal gait Integumentary Integumentary: Denies jaundice Neurologic Neurologic: Denies dizziness Psychiatric Psychiatric: Denies anxiety Endocrine Endocrinology: Denies heat intolerance Hematologic/Lymphatic Hematologic/Lymphatic: Denies easy bleeding Physical Exam Const alert and oriented x3 HEENT normocephalic Eyes PERRL Resp normal respiratory effort Cardio Rate: regular rate Rhythm: regular rhythm GI soft to palpation Inspection: abdominal distention Palpation: tender periumbilical Lab / Micro Data 06/22/23 14:42 06/22/23 14:42 Labs: Laboratory Results - last 24 hr 06/22/23 14:42: WBC 12.8 H, RBC 5.50, Hgb 16.0, Hct 47.8, MCV 86.9, MCH 29.1, MCHC 33.5, RDW Std Deviation 45.3 H, RDW Coeff of David 14.2, Plt Count 352, MPV 10.9, Immature Gran % (Auto) 0.400, Neut % (Auto) 77.0 H, Lymph % (Auto) 12.5 L,[place] % (Auto) 9.6, Eos % (Auto) 0.1, Baso % (Auto) 0.4, Absolute Neuts (auto) 9.9 H, Absolute Lymphs (auto) 1.61, Nucleated RBC % 0, Sodium 136, Potassium 3.6, Chloride 97 L, Carbon Dioxide 28.0, Anion Gap 11, BUN 30 H, Creatinine 1.25, Estim Creat Clear Calc 67.87, Est GFR (MDRD) Af Amer 75, Est GFR (MDRD) Non-Af 62, BUN/Creatinine Ratio 24.0 H, Glucose 305 H, Calcium 9.5, Total Bilirubin 0.50, Direct Bilirubin 0.20, AST 16, ALT 14 L, Alkaline Phosphatase 129 H, Total Protein 7.4, Albumin 2.9 L, Globulin 4.5 H, Lipase 11 L 06/22/23 14:58: Urine Color Yellow, Urine Clarity Clear, Urine pH 5.0, Ur Specific [place] 1.025, Urine Protein 30 H, Urine Glucose (UA) Normal, Urine Ketones 5 H, Urine Occult Blood Negative, Urine Nitrite Negative, Urine Bilirubin 3 H, Urine Urobilinogen 1 H, Ur Leukocyte Esterase Negative, Urine RBC0-5 SEEN, Urine WBC 0-5 SEEN, Ur Squamous Epith Cells 0-5 SEEN, Urine Bacteria 1+, Hyaline Casts 0-5 SEEN, Urine Mucus 0 SEEN Imaging Radiology Impression Abdomen/Pelvis CT 06/22/23 14:20 IMPRESSION: Small bowel obstruction with question of early ischemic change. Electronically Signed: Ronan Awan MD at 15:35 EDT , ADDENDUM: 06/22/23 1544 IMPRESSION: Small bowel obstruction with question of early ischemic change. N.B. : The above Results were Read Back by Ronan Awan MD to Carmen Matthews MD, and understanding confirmed on 06/22/2023 15:37:25 (ET). Electronically Signed: Ronan Awan MD at 15:35 EDT , 06/22/23 1632 <Electronically signed by Raj Stevenson MD> Cosigner Signature (if applicable): CC: Dr. Alyson Arthur MD~ [facility]igned [facility] Work Phone: Evaluation note* Diagnosis GERD without esophagitis Esophageal reflux Type 2 diabetes mellitus without complication, without long-term current use of insulin (HCC) Dyspnea, unspecified type Chronic obstructive pulmonary disease, unspecified COPD type (HCC) DDD (degenerative disc disease), lumbar Degeneration of lumbar or lumbosacral intervertebral disc documented in this encounter [facility] note* Diagnosis GERD without esophagitis- Primary Esophageal reflux DDD (degenerative disc disease), lumbar Degeneration of lumbar or lumbosacral intervertebral disc documented in this encounter [facility] note* Diagnosis Type 2 diabetes mellitus without complication, without long-term current use of insulin (HCC) GERD without esophagitis Esophageal reflux DDD (degenerative disc disease), lumbar Degeneration of lumbar or lumbosacral intervertebral disc documented in this encounter [facility] noteNo assessment information availableWMetro[facility] Work Phone: Evaluation note* Diagnosis DDD (degenerative disc disease), lumbar Degeneration of lumbar or lumbosacral intervertebral disc documented in this encounter [facility] note* Diagnosis DDD (degenerative disc disease), lumbar Degeneration of lumbar or lumbosacral intervertebral disc documented in this encounter [facility] note* Diagnosis DDD (degenerative disc disease), lumbar Degeneration of lumbar or lumbosacral intervertebral disc Type 2 diabetes mellitus without complication, without long-term current use of insulin ([facility] [place] [facility] documented in this encounter [facility] note* Diagnosis Nonrheumatic aortic valve stenosis- Primary Aortic valve disorders Bicuspid aortic valve Congenital insufficiency of aortic valve LVH (left ventricular hypertrophy) Cardiomegaly Primary hypertension Unspecified essential hypertension Hyperlipidemia, unspecified hyperlipidemia type Type 2 diabetes mellitus with microalbuminuria, with long-term current use of insulin (HCC) Microalbuminuria Proteinuria Chronic bronchitis, simple (HCC) Simple chronic bronchitis Sleep apnea, unspecified type Restrictive lung disease Other diseases of lung, not elsewhere classified Bipolar 1 disorder (HCC) Bipolar I disorder, most recent episode (or current) unspecified Morbid obesity with BMI of 50.0-59.9, adult (HCC) Morbid obesity GERD without esophagitis Esophageal reflux Age-related cataract of both eyes, unspecified age-related cataract type Vitamin D deficiency Unspecified vitamin D deficiency Fatigue, unspecified type Current use of proton pump inhibitor Encounter for long-term (current) use of other medications Nocturnal oxygen desaturation Idiopathic sleep related nonobstructive alveolar hypoventilation [facility] this encounter [facility]* Diagnosis Controlled type 2 diabetes mellitus with diabetic neuropathy, with long-term current use of insulin (HCC)- Primary [facility] this [facility]* Diagnosis Controlled type 2 diabetes mellitus with diabetic neuropathy, with long-term current use of insulin (HCC)- Primary documented [facility] this [facility]* Diagnosis DDD (degenerative disc disease), lumbar Degeneration of lumbar or lumbosacral intervertebral disc [facility] this encounter [facility]* Diagnosis DDD (degenerative disc disease), lumbar Degeneration of lumbar or lumbosacral intervertebral disc [facility] this encounter [facility]* Diagnosis Controlled type 2 diabetes mellitus with diabetic neuropathy, with long-term current use of insulin ([facility])- Primary documented in this encounter [facility]* Diagnosis Controlled type 2 diabetes mellitus with diabetic neuropathy, with long-term current use of insulin ([facility]) documented in this encounter [facility]* Diagnosis Controlled type 2 diabetes mellitus with diabetic neuropathy, with long-term current use of insulin ([facility])- Primary Encounter for immunization Need for other [...] malignant neoplasms, colon documented in this encounter [facility] note* Diagnosis Nonrheumatic aortic valve stenosis- Primary Aortic valve disorders Bicuspid aortic valve Congenital insufficiency of aortic valve Edema, unspecified type Chronic diastolic heart failure (HCC) Chronic diastolic heart failure Hyperlipidemia, unspecified hyperlipidemia type Primary hypertension Unspecified essential hypertension Controlled type 2 diabetes mellitus with diabetic neuropathy, with long-term current use of insulin (HCC) Morbid obesity with BMI of 50.0-59.9, adult ([facility]) Morbid obesity [facility]* Diagnosis Type 2 diabetes mellitus without retinopathy (HCC)- Primary Type II or unspecified type diabetes mellitus without mention of complication, not stated as uncontrolled Combined forms of age-related cataract of both eyes Other and combined forms of senile cataract Dry eye syndrome of bilateral lacrimal glands Tear film insufficiency, unspecified Glaucoma suspect of both eyes Preglaucoma, unspecified [facility]* Diagnosis GERD without esophagitis Esophageal reflux Type 2 diabetes mellitus without complication, without long-term current use of insulin ([facility]) [facility]* Diagnosis Primary hypertension- Primary Unspecified essential hypertension Controlled type 2 diabetes mellitus with diabetic neuropathy, with long-term current use of insulin ([facility]) Chronic back pain, unspecified back location, unspecified back pain laterality [facility]* Diagnosis Type 2 diabetes mellitus without retinopathy (HCC)- Primary Type II or unspecified type diabetes mellitus without mention of complication, not stated as uncontrolled Combined forms of age-related cataract of both eyes Other and combined forms of senile cataract Dry eye syndrome of bilateral lacrimal glands Tear film insufficiency, unspecified Glaucoma suspect of both eyes Preglaucoma, unspecified [facility]* Diagnosis Encounter for screening for lung cancer- Primary Tobacco use current [facility]* Diagnosis DDD (degenerative disc disease), lumbar Degeneration of lumbar or lumbosacral intervertebral disc [facility]* Diagnosis MANISH (obstructive sleep apnea)- Primary Obstructive sleep apnea (adult) (pediatric) [facility]* Diagnosis Bilateral leg edema- Primary Edema [facility]* Diagnosis Dyspnea, unspecified type Chronic obstructive pulmonary disease, unspecified COPD type ([facility]) [facility]* Diagnosis DDD (degenerative disc disease), lumbar- Primary Degeneration of lumbar or lumbosacral intervertebral disc Morbid obesity with BMI of 50.0-59.9, adult (HCC) Morbid obesity LVH (left ventricular hypertrophy) Cardiomegaly Restrictive lung disease Other diseases of lung, not elsewhere classified documented in this encounter [facility]* Diagnosis Lumbar radiculopathy- Primary Thoracic or lumbosacral neuritis or radiculitis, unspecified Controlled type 2 diabetes mellitus with diabetic neuropathy, with long-term current use of insulin (HCC) Bicuspid aortic valve Congenital insufficiency of aortic valve Nonrheumatic aortic valve stenosis Aortic valve disorders LVH (left ventricular hypertrophy) Cardiomegaly Primary hypertension Unspecified essential hypertension Hyperlipidemia, unspecified hyperlipidemia type Chronic bronchitis, simple (HCC) Simple chronic bronchitis Sleep apnea, unspecified type GERD without esophagitis Esophageal reflux Type 2 diabetes mellitus with microalbuminuria, with long-term current use of insulin (HCC) Morbid obesity with BMI of 50.0-59.9, adult ([facility]) Morbid obesity Microalbuminuria Proteinuria documented in this encounter [facility]* Diagnosis Aortic valve stenosis, etiology of cardiac valve disease unspecified- Primary Bicuspid aortic valve Congenital insufficiency of aortic valve documented in this encounter [facility] note* Diagnosis Bicuspid aortic valve Congenital insufficiency of aortic valve Nonrheumatic aortic valve stenosis Aortic valve disorders documented in this encounter [facility] note* Diagnosis Controlled type 2 diabetes mellitus with diabetic neuropathy, with long-term current use of insulin ([facility]) documented in this encounter [facility] note* Diagnosis Onset Date Resolution Status Pneumonia acute COPD exacerbation [facility] Work Phone: Evaluation note* Diagnosis Controlled type 2 diabetes mellitus with diabetic neuropathy, with long-term current use of insulin ([facility]) documented in this encounter [facility] note* Diagnosis Open wound of right lower extremity, subsequent encounter- Primary documented in this encounter [facility]* Diagnosis Bacterial pneumonia- Primary Bacterial pneumonia, [...] of unspecified site [facility] Diagnosis Cutaneous abscess of right lower extremity Cellulitis and abscess of leg, except foot Cellulitis of skin Cellulitis and abscess of unspecified site [facility] Diagnosis Encounter for preprocedural cardiovascular examination- Primary Pre-operative cardiovascular examination Sleep apnea, unspecified type Bicuspid aortic valve Congenital insufficiency of aortic valve Nonrheumatic aortic valve stenosis Aortic valve disorders Preoperative testing Preoperative examination, unspecified [facility] Diagnosis Encounter for preprocedural cardiovascular examination Pre-operative cardiovascular examination Sleep apnea, unspecified type Bicuspid aortic valve Congenital insufficiency of aortic valve Nonrheumatic aortic valve stenosis Aortic valve disorders Preoperative testing Preoperative examination, unspecified Valvular heart disease Endocarditis, valve unspecified, unspecified cause [facility]* Diagnosis Encounter for preprocedural cardiovascular examination Pre-operative cardiovascular examination Sleep apnea, unspecified type Bicuspid aortic valve Congenital insufficiency of aortic valve Nonrheumatic aortic valve stenosis Aortic valve disorders Preoperative testing Preoperative examination, unspecified Valvular heart disease Endocarditis, valve unspecified, unspecified cause [facility] Diagnosis Encounter for preprocedural cardiovascular examination Pre-operative cardiovascular examination Sleep apnea, unspecified type Bicuspid aortic valve Congenital insufficiency of aortic valve Nonrheumatic aortic valve stenosis Aortic valve disorders Preoperative testing Preoperative examination, unspecified Valvular heart disease Endocarditis, valve unspecified, unspecified cause [facility] Diagnosis Encounter for preprocedural cardiovascular examination Pre-operative cardiovascular examination Sleep apnea, unspecified type Bicuspid aortic valve Congenital insufficiency of aortic valve Nonrheumatic aortic valve stenosis Aortic valve disorders Preoperative testing Preoperative examination, unspecified Valvular heart disease Endocarditis, valve unspecified, unspecified cause [facility]* Diagnosis Blister (nonthermal), right foot, initial encounter- Primary Bilateral lower extremity edema Edema Dependent rubor Unspecified erythematous condition Open wound of right lower extremity, subsequent encounter Controlled type 2 diabetes mellitus with diabetic neuropathy, with long-term current use of insulin (HCC) [facility] Diagnosis Venous insufficiency- Primary Unspecified venous [...] vascular disease, unspecified [facility]* Diagnosis Dyspnea, unspecified type Chronic obstructive pulmonary disease, unspecified COPD type ([facility]) documented in this encounter [facility]* Diagnosis Encounter for screening for lung cancer Tobacco use current documented in this encounter [facility] note* Diagnosis Severe aortic stenosis [I35.0]- Primary Aortic valve disorders documented in this encounter [facility]* Diagnosis Preoperative testing- Primary Preoperative examination, unspecified Encounter for preprocedural cardiovascular examination Pre-operative cardiovascular examination Severe aortic stenosis Aortic valve disorders documented in this encounter [facility] note* Diagnosis DDD (degenerative disc disease), lumbar Degeneration of lumbar or lumbosacral intervertebral disc [facility]* Diagnosis Pre-op exam- Primary Preoperative examination, unspecified Controlled type 2 diabetes mellitus without complication, unspecified whether jail insulin use (HCC) Pre-operative cardiovascular examination Aortic valve disorder Aortic valve disorders Aneurysm of ascending 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 ([facility]) documented in this encounter [facility] note* Diagnosis Encounter for preoperative anesthesiology assessment for cardiac surgery- Primary Controlled type 2 diabetes mellitus without complication, unspecified whether jail insulin use (HCC) Pre-operative cardiovascular examination Aortic valve disorder Aortic valve disorders 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) documented in this encounter [facility] note* Diagnosis Controlled type 2 diabetes mellitus without complication, unspecified whether jail insulin use (HCC) Pre-operative cardiovascular examination Aortic valve disorder Aortic valve disorders 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) Chronic diastolic heart failure (HCC) Chronic diastolic heart failure Chronic bronchitis, simple (HCC) Simple chronic bronchitis Morbid obesity with BMI of 50.0-59.9, adult (HCC) Morbid obesity Controlled type 2 diabetes mellitus without complication, unspecified whether jail insulin use (HCC) Pre-operative cardiovascular examination Aortic valve disorder Aortic valve disorders 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) [facility]* Diagnosis Controlled type 2 diabetes mellitus without complication, unspecified whether terminal block assembler insulin use (HCC) Pre-operative cardiovascular examination Aortic valve disorder Aortic valve disorders 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) Controlled type 2 diabetes mellitus without complication, unspecified whether jail insulin use (HCC) Pre-operative cardiovascular examination Aortic valve disorder Aortic valve disorders 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) [facility]* Diagnosis Small bowel obstruction (HCC)- Primary Unspecified intestinal obstruction Right hemiparesis (HCC) Hemiplegia, unspecified, affecting unspecified side Slurred speech Other speech disturbance Mild CAD Dysarthria Arterial ischemic stroke, MCA (middle cerebral artery), left, acute (HCC) Unspecified cerebral artery occlusion with cerebral infarction Dilatation of aorta (HCC) Aortic ectasia, unspecified site Type 2 diabetes mellitus with hyperglycemia, with long-term current use of insulin ([facility]) Pressure injury of coccygeal region, unstageable ([facility]) Pleural effusion Unspecified pleural effusion Chronic insomnia Insomnia, unspecified Primary hypertension Unspecified essential hypertension Bicuspid aortic valve Congenital insufficiency of aortic valve GERD without esophagitis Esophageal reflux Chronic back pain, unspecified back location, unspecified back pain laterality Chronic diastolic heart failure (HCC) Chronic diastolic heart failure Paroxysmal atrial fibrillation (HCC) Atrial fibrillation Acute ischemic left MCA stroke (HCC) Unspecified cerebral artery occlusion with cerebral infarction Acute embolism and thrombosis of superficial vein of right arm Acute venous embolism and thrombosis of superficial veins of upper extremity [facility]* Diagnosis Type 2 diabetes mellitus without complication, without long-term current use of insulin ([facility]) [facility]* Diagnosis Paroxysmal atrial fibrillation (HCC)- Primary Atrial fibrillation [facility]* Diagnosis Chronic back pain, unspecified back location, unspecified back pain laterality [facility]* Diagnosis Wrist pain, acute, right- Primary [facility]* Diagnosis Aortic valve disorder- Primary Aortic valve disorders 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* Diagnosis Onset Date Resolution Status Small bowel obstruction [facility] Work Phone: Evaluation note* Diagnosis Onset Date Resolution Status Morbid obesity acute Small bowel obstruction [facility] Work Phone: Evaluation note* Diagnosis Chronic back pain, unspecified back location, unspecified back pain laterality Type 2 diabetes mellitus without complication, without long-term current use of insulin ([facility]) documented in this encounter [facility] note* Diagnosis Aneurysm of ascending 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 ([facility])- Primary documented in this encounter [facility] note* Diagnosis Aneurysm of ascending 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 ([facility]) documented in this encounter [facility] note* Diagnosis Arterial ischemic stroke (HCC)- Primary Unspecified cerebral artery occlusion with cerebral infarction Right hemiparesis (HCC) Hemiplegia, unspecified, affecting unspecified side documented in this encounter [facility] note* Diagnosis SBO (small bowel obstruction) ([facility])- Primary Unspecified intestinal obstruction [facility] this [facility]* Diagnosis Chronic back pain, unspecified back location, unspecified back pain laterality documented in this encounter [facility] note* Diagnosis Controlled type 2 diabetes mellitus with diabetic neuropathy, with long-term current use of insulin ([facility]) documented in this encounter [facility] note* Diagnosis Right hemiparesis (HCC)- Primary Hemiplegia, unspecified, affecting unspecified side Arterial ischemic stroke, MCA (middle cerebral artery), left, acute (HCC) Unspecified cerebral artery occlusion with cerebral infarction documented in this encounter [facility] note* Diagnosis Neurogenic bladder as late effect of cerebrovascular accident (CVA)- Primary documented in this encounter [facility]* Diagnosis Type 2 diabetes mellitus without complication, without long-term current use of insulin ([facility]) documented in this encounter [facility] note* Diagnosis Chronic back pain, unspecified back location, unspecified back pain laterality GERD without esophagitis Esophageal reflux Mild CAD Arterial ischemic stroke, MCA (middle cerebral artery), left, acute (HCC) Unspecified cerebral artery occlusion with cerebral infarction Dilatation of aorta (HCC) Aortic ectasia, unspecified site Bicuspid aortic valve Congenital insufficiency of aortic valve Primary hypertension Unspecified essential hypertension [facility]* Diagnosis Wrist pain, acute, right documented in this encounter [facility]* Diagnosis Pleural effusion Unspecified pleural effusion Small bowel obstruction (HCC) Unspecified intestinal obstruction documented in this encounter [facility]* Diagnosis Bacterial pneumonia Bacterial pneumonia, unspecified [facility]* Diagnosis Left hip pain Pain in joint, pelvic region and thigh [facility]* Diagnosis Primary hypertension Unspecified essential hypertension Arterial ischemic stroke, MCA (middle cerebral artery), left, acute (HCC) Unspecified cerebral artery occlusion with cerebral infarction Dilatation of aorta (HCC) Aortic ectasia, unspecified site Type 2 diabetes mellitus with hyperglycemia, with long-term current use of insulin ([facility]) documented in this encounter [facility]* Diagnosis Cough [facility]* Diagnosis Left wrist pain Pain in joint, forearm [facility]* Diagnosis Type 2 diabetes mellitus without complication, without long-term current use of insulin (HCC) documented in this encounter [facility]* Diagnosis Type 2 diabetes mellitus without complication, without long-term current use of insulin (HCC) documented in this encounter [facility]* Diagnosis Type 2 diabetes mellitus without complication, without long-term current use of insulin (HCC) documented in this encounter [facility]* Diagnosis Type 2 diabetes mellitus without complication, without long-term current use of insulin (HCC) [facility]* Diagnosis Chronic back pain, unspecified back location, unspecified back pain laterality [facility]* Diagnosis Urine frequency- Primary Urinary frequency Encounter for immunization Need for other specified prophylactic vaccination against single bacterial disease Screening for depression Encounter for screening examination for other mental health and behavioral disorders Chronic obstructive pulmonary disease, unspecified COPD type ([facility]) Screening for colon cancer Special screening for malignant neoplasms, colon Type 2 diabetes mellitus with hyperglycemia, with long-term current use of insulin ([facility]) Encounter for screening for lung cancer Screening for lipid disorders Primary hypertension Unspecified essential hypertension Controlled type 2 diabetes mellitus with diabetic neuropathy, with long-term current use of insulin (HCC) Arterial ischemic stroke, MCA (middle cerebral artery), left, acute (HCC) Unspecified cerebral artery occlusion with cerebral infarction Dilatation of aorta (HCC) Aortic ectasia, unspecified site Dyspnea, unspecified type Type 2 diabetes mellitus without complication, without long-term current use of insulin (HCC) Cerebrovascular accident (CVA) due to nonpyogenic cerebral venous thrombosis (HCC) Acute maxillary sinusitis, recurrence not specified documented in this encounter [facility] note* Diagnosis Chronic back pain, unspecified back location, unspecified back pain laterality- Primary Right hemiparesis (HCC) Hemiplegia, unspecified, affecting unspecified side documented in this encounter [facility] note* Diagnosis GERD without esophagitis Esophageal reflux Mild CAD Arterial ischemic stroke, MCA (middle cerebral artery), left, acute (HCC) Unspecified cerebral artery occlusion with cerebral infarction Dilatation of aorta (HCC) Aortic ectasia, unspecified site Bicuspid aortic valve Congenital insufficiency of aortic valve Chronic back pain, unspecified back location, unspecified back pain laterality documented in this encounter [facility] note* Diagnosis Cigarette smoker- Primary Tobacco use disorder documented in this encounter [facility] note* Diagnosis Paroxysmal atrial fibrillation (HCC) Atrial fibrillation documented in this encounter [facility] note* Diagnosis Controlled type 2 diabetes mellitus with diabetic neuropathy, with long-term current use of insulin ([facility]) documented in this encounter [facility] note* Diagnosis Type 2 diabetes mellitus with hyperglycemia, with long-term current use of insulin ([facility])- Primary documented in this encounter [facility] note* Diagnosis MANISH (obstructive sleep apnea)- Primary Obstructive sleep apnea (adult) (pediatric) Chronic back pain, unspecified back location, unspecified back pain laterality Chronic insomnia Insomnia, unspecified documented in this encounter [facility] note* Diagnosis Uncontrolled type 2 diabetes mellitus with hyperglycemia ([facility])- Primary Peripheral vascular disease Peripheral vascular disease, unspecified Screening for prostate cancer Special screening for malignant neoplasm of prostate Arterial ischemic stroke, MCA (middle cerebral artery), left, acute (HCC) Unspecified cerebral artery occlusion with cerebral infarction Hyperlipidemia, unspecified hyperlipidemia type Primary hypertension Unspecified essential hypertension Chronic anticoagulation Long-term (current) use of anticoagulants Bilateral carotid artery stenosis Occlusion and stenosis of carotid artery without mention of cerebral infarction Impacted cerumen of left ear Impacted cerumen Acute otitis externa of left ear, unspecified type documented in this encounter [facility] note* Diagnosis Type 2 diabetes mellitus without complication, without long-term current use of insulin (HCC) documented in this encounter [facility] note* Diagnosis Acute otitis externa, unspecified laterality, unspecified type- Primary documented in this encounter [facility] note* Diagnosis Primary hypertension Unspecified essential hypertension documented in this encounter [facility] note* Diagnosis Type 2 diabetes mellitus without complication, without long-term current use of insulin (HCC) documented in this encounter [facility] note* Diagnosis Multiple lung nodules- Primary Other nonspecific abnormal finding of lung field Encounter for screening for lung cancer Tobacco use current documented in this encounter [facility] note* Diagnosis Cigarette smoker Tobacco use disorder documented in this encounter [facility] note* Diagnosis Chronic back pain, unspecified back location, unspecified back pain laterality GERD without esophagitis Esophageal reflux Mild CAD Arterial ischemic stroke, MCA (middle cerebral artery), left, acute (HCC) Unspecified cerebral artery occlusion with cerebral infarction Dilatation of aorta Aortic ectasia, unspecified site Bicuspid aortic valve (HCC) Congenital insufficiency of aortic valve Chronic insomnia Insomnia, unspecified documented in this encounter [facility] Narrative No data available for this section [facility] Discharge instructions No data available for this section [facility] for referral (narrative)* Outpatient Procedure (Routine) - Authorized Specialty Diagnoses / Procedures Referred By Contac t Referred To Contact [facility] Diagnoses Bicuspid aortic valve Nonrheumatic aortic valve stenosis Procedures ECHO ECHO TTHRC R-T 2D W/WOM-MODE COMPL SPEC&COLR D Kathy Colbert APRN.CNP [address] [place] [address] [facility] [place] [address] Referral ID Status Reason Start Date Expiration Date Visits Requested Visits Authorized [id number] Authorized Auto-Generat ed Referral 05/23/2022 05/23/2023 1 1 [facility] for referral (narrative)* Outpatient Procedure (Routine) - Authorized Specialty Diagnoses / Procedures Referred By Ade t Referred To [facility] Diagnoses Diminished pulses in lower extremity Diabetic mononeuropathy associated with diabetes mellitus due to underlying condition (HCC) Procedures PVR ANK PRESS SOY [facility] LAB NON-INVAS PHYSIOLOGIC STD EXTREMITY ART 2 LEVEL Estelle Cardenas [address] [place] [address] [facility] [place] [address] [place] [address] Referral ID Status Reason Start Date Expiration Date Visits Requested Visits Authorized [id number] Authorized Auto-Generat ed Referral 12/05/2023 1 1 * Diagnostic Procedure Only (Routine) - Closed Specialty Diagnoses / Procedures Referred By Ade t Referred To Contact XR IMAGING Diagnoses Venous insufficiency Procedures XR TIBIA FIBULA 2V AP/LAT RIGHT RADIOLOGIC EXAMINATION TIBIA & FIBULA 2 VIEWS Estelle Cardenas [address] [place] [address] [place] [address] Referral ID Status Reason Start Date Expiration Date V isits Requested Visits Authorized [id number] Closed Auto-Generate d Referral 12/05/2022 01/04/2024 1 1 * Diagnostic Procedure Only (Routine) - Closed Specialty Diagnoses / Procedures Referred By Ade t Referred To Contact XR IMAGING Diagnoses Venous insufficiency Blister Procedures XR FOOT GENERAL 3V AP/LAT/OBL RIGHT RADEX FOOT COMPLETE MINIMUM 3 VIEWS Estelle Cardenas [address] [place] [address] Xr Imaging [id number] Referral ID Status Reason Start Date Expiration Date V isits Requested Visits Authorized [id number] Closed Auto-Generate d Referral 12/05/2022 01/04/2024 1 1 [facility] for referral (narrative)* Outpatient Procedure (Routine) - Authorized Specialty Diagnoses / Procedures Referred By Contac t Referred To [facility] Diagnoses Preoperative testing Encounter for preprocedural cardiovascular examination Severe aortic stenosis Procedures US CAROTID ARTERIES [facility]Y [facility] DUPLEX SCAN EXTRACRANIAL ART COMPL BI STUDY Leandro Foster APRN.GUEST HISTORY CLERK [address] [place] [address] [facility] [place] [address] [place] [address] Referral ID Status Reason Start Date Expiration Date Visits Requested Visits Authorized [id number] Authorized Auto-Generat ed Referral 12/21/2022 12/21/2023 1 1 [facility] for referral (narrative)* Diagnostic Procedure Only (Urgent) - Closed Specialty Diagnoses / Procedures Referred By Contac t Referred To Contact XR IMAGING Diagnoses Wrist pain, acute, right Procedures XR WRIST INJURY 4V PA/LAT/OBL/SCAPH RIGHT RADEX WRIST COMPLETE MINIMUM 3 VIEWS Jim Jeffers APRN.GUEST HISTORY CLERK [address] [place] [address] [place] [address] Referral ID Status Reason Start Date Expiration Date V isits Requested Visits Authorized [id number] Closed Auto-Generate d Referral 05/29/2023 06/27/2024 1 1 * Diagnostic Procedure Only (Urgent) - Closed Specialty Diagnoses / Procedures Referred By Contac t Referred To Contact XR IMAGING Diagnoses Wrist pain, acute, right Procedures XR HAND GENERAL 3V PA/LAT/OBL RIGHT RADEX HAND MINIMUM 3 VIEWS Jim Jeffers APRN.GUEST HISTORY CLERK [address] [place] [address] [place] [address] Referral ID Status Reason Start Date Expiration Date V isits Requested Visits Authorized [id number] Closed Auto-Generate d Referral 05/29/2023 06/27/2024 1 1 [facility] for referral (narrative)* Diagnostic Procedure Only (Urgent) - Closed Specialty Diagnoses / Procedures Referred By Contac t Referred To Contact XR IMAGING Diagnoses Wrist pain, acute, right Procedures XR WRIST INJURY 4V PA/LAT/OBL/SCAPH RIGHT RADEX WRIST COMPLETE MINIMUM 3 VIEWS Jim Jeffers APRN.GUEST HISTORY CLERK [address] [place] [address] [place] [address] Referral ID Status Reason Start Date Expiration Date V isits Requested Visits Authorized [id number] Closed Auto-Generate d Referral 05/29/2023 06/27/2024 1 1 * Diagnostic Procedure Only (Urgent) - Closed Specialty Diagnoses / Procedures Referred By Contac t Referred To Contact XR IMAGING Diagnoses Wrist pain, acute, right Procedures XR HAND GENERAL 3V PA/LAT/OBL RIGHT RADEX HAND MINIMUM 3 VIEWS Jim Jeffers APRN.GUEST HISTORY CLERK [address] [place] [address] [place] [address] Referral ID Status Reason Start Date Expiration Date V isits Requested Visits Authorized [id number] Closed Auto-Generate d Referral 05/29/2023 06/27/2024 1 1 [facility] for referral (narrative)* Diagnostic Procedure Only (Routine) - Closed Specialty Diagnoses / Procedures Referred By Contac t Referred To Contact XR IMAGING Diagnoses Small bowel obstruction (HCC) Procedures XR ABDOMEN 1V SUPINE RADIOLOGIC EXAM ABDOMEN 1 VIEW Alyson rAthur MD [address] [place] [address] [place] [address] Referral ID Status Reason Start Date Expiration Date V isits Requested Visits Authorized [id number] Closed Auto-Generate d Referral 05/22/2023 06/20/2024 1 1 [facility] for referral (narrative)* Diagnostic Procedure Only (Urgent) - Closed Specialty Diagnoses / Procedures Referred By Contac t Referred To Contact XR IMAGING Diagnoses Left hip pain Procedures XR HIP GENERAL 3V PELV/AP/LAT LEFT RADEX HIP UNILATERAL WITH PELVIS 2-3 VIEWS Marci Merlos, TECHNICAL ACCOUNT REPRESENTATIVE.GUEST HISTORY CLERK [address] [place] [address] [place] [address] Referral ID Status Reason Start Date Expiration Date V isits Requested Visits Authorized [id number] Closed Auto-Generate d Referral 07/04/2022 08/03/2023 1 1 Electronically signed by Marci Merlos TECHNICAL ACCOUNT REPRESENTATIVE.GUEST HISTORY CLERK at 07/04/2022 3:03 PM EDT [facility] for referral (narrative)No reason for referral information [facility] Phone: Reason for visit Narrative* Outpatient Procedure (Routine) - Closed Specialty Diagnoses / Procedures Referred By Contac t Referred To Contact [facility] Diagnoses Bicuspid aortic valve Nonrheumatic aortic valve stenosis Procedures ECHO ECHO TTHRC R-T 2D W/WOM-MODE COMPL SPEC&COLR D Kathy Colbert TECHNICAL ACCOUNT REPRESENTATIVE.GUEST HISTORY CLERK [address] [place] [address] [facility] [place] [address] [place] [address] Referral ID Status Reason Start Date Expiration Date V isits Requested Visits Authorized [id number] Closed Auto-Generate d Referral 05/23/2022 05/23/2023 1 1 [facility] for visit Narrative* Diagnostic Procedure Only (Urgent) - Closed Specialty Diagnoses / Procedures Referred By Contac t Referred To Contact XR IMAGING Diagnoses Wrist pain, acute, right Procedures XR WRIST INJURY 4V PA/LAT/OBL/SCAPH RIGHT RADEX WRIST COMPLETE MINIMUM 3 VIEWS Jim Jeffers TECHNICAL ACCOUNT REPRESENTATIVE.GUEST HISTORY CLERK [address] [place] [place] [address] [place] [address] Referral ID Status Reason Start Date Expiration Date V isits Requested Visits Authorized [id number] Closed Auto-Generate d Referral 05/29/2023 06/27/2024 1 1 [facility] for visit Narrative* Diagnostic Procedure Only (Routine) - Closed Specialty Diagnoses / Procedures Referred By Contac t Referred To Contact XR IMAGING Diagnoses Small bowel obstruction (HCC) Procedures XR ABDOMEN 1V SUPINE RADIOLOGIC EXAM ABDOMEN 1 VIEW Alyson Arthur MD [address] [place] [address] [place] [address] Referral ID Status Reason Start Date Expiration Date V isits Requested Visits Authorized [id number] Closed Auto-Generate d Referral 05/22/2023 06/20/2024 1 1 [facility] for visit Narrative* Diagnostic Procedure Only (Urgent) - Closed Specialty Diagnoses / Procedures Referred By Contac t Referred To Contact XR IMAGING Diagnoses Left hip pain Procedures XR HIP GENERAL 3V PELV/AP/LAT LEFT RADEX HIP UNILATERAL WITH PELVIS 2-3 VIEWS Marci Merlos, PRICILA.GUEST HISTORY CLERK [address] [place] [address] [place] [address] Referral ID Status Reason Start Date Expiration Date V isits Requested Visits Authorized [id number] Closed Auto-Generate d Referral 07/04/2022 08/03/2023 1 1 [facility] Concerns Infection Onset Date Last Indicated Resolved Time COVID-19 Rule-Out 12/13/2020 12/13/2020 12/14/2020 3:01 PM EDT Family History No Family History Records Found Relationship Condition Age at Onset Recorded Date/T [place] Unknown Family History?No pe rtinent history Unknown November 20, 2013 6:04pm Family History?No pe rtinent history Unknown November 20, 2013 6:04pm Relationship Condition Age at Onset Recorded Date/T [place] Unknown Family History?No pe rtinent history Unknown November 20, 2013 5:04pm Family History?No pe rtinent history Unknown November 20, 2013 5:04pm Relationship Condition Age at Onset Recorded Date/T [place] father Diabetes mellitus Unknown Dementia Unknown mother Coronary artery disease Unknown sister Diabetes mellitus Unknown brother Ischemic heart disease Unknown brother Myocardial infarction Unknown Advance Directives No Advanced Directives Records Found Advance Directive Response Recorded Date/ Time Advance Directives No November 20, 2013 7:14pm Living Will No October 30, 2020 9:16pm Power of Summer Law Associate No October 9:16pm Advance Directive Response Recorded Date/ Time Advance Directives No November 20, 2013 7:14pm Living Will No October 18, 2 022 1:18pm Power of Summer Law Associate No October 18, 2021 1:18pm Advance Directive Response Recorded Date/ Time Advance Directives No November 20, 2013 6:14pm Living Will No October 18, 2 022 12:18pm Power of Summer Law Associate No October 18, 2021 12:18pm Advance Directive Response Recorded Date/ Time Advance Directives No November 20, 2013 7:14pm Living Will No September 23 3 2:06am Power of Summer Law Associate No September 23, 2 023 2:06am Advance Directive Response Recorded Date/ Time Advance Directives No November 20, 2013 7:14pm Living Will No October 09 3 2:45pm Power of Summer Law Associate No October 09, 2 023 2:45pm Advance Directive Response Recorded Date/ Time Advance Directives No November 20, 2013 7:14pm Living Will No October 09 3 10:10pm Power of Summer Law Associate No October 09, 2 023 10:10pm Advance Directive Response Recorded Date/ Time Advance Directives No November 20, 2013 7:14pm Living Will No June 22, 2023 2: 13pm Power of Summer Law Associate No June 22, 2023 2:13pm Advance Directive Response Recorded Date/ Time Advance Directives No November 20, 2013 7:14pm Living Will No June 22, 2023 8: 26pm Power of Summer Law Associate No June 22, 2023 8:26pm Advance Directive Response Recorded Date/ Time Advance Directives No November 20, 2013 7:14pm Chief Complaint and Reason for Visit Chief Complaint sob Chief Complaint BACK PAIN Chief Complaint BACK PAIN PNEUMONIA. , COPD EXACERBATION Reason for Visit Pneumonia COPD exacerbation Chief Complaint BACK PAIN PNEUMONIA. , COPD EXACERBATION PNEUMONIA. , COPD EXACERBATION Reason for Visit Pneumonia COPD exacerbation Chief Complaint ABD PAIN SMALL BOWEL OBSTRUCTION Reason for Visit Small bowel obstruct ion Chief Complaint ABD PAIN SMALL BOWEL OBSTRUCTION SMALL BOWEL OBSTRUCTION SMALL BOWEL OBSTRUCTION SMALL BOWEL OBSTRUCTION SMALL BOWEL OBSTRUCTION Reason for Visit Morbid obesity Small bowel obstruction Chief Complaint Admit Date B/L KNEE OA June 20, 2024 10:51a m Reason for Referral Specialty Diagnoses / Procedures Referred By Contac t Referred To Contact Cardiology Diagnoses Nonrheumatic aortic valve stenosis Bicuspid aortic valve LVH (left ventricular hypertrophy) Primary hypertension Hyperlipidemia, unspecified hyperlipidemia type Procedures CONSULT TO CARDIOLOGY OFFICE/OUTPATIENT [facility] 60-74 MINUTES Scott Livingston PA-C [address] [place] [address] Referral ID Status Reason Start Date Expiration Date Visits Requested Visits Authorized [id number] Pending Review PCP Requested Referral 10/22/2021 10/22/2022 1 1 Specialty Diagnoses / Procedures Referred By Contac t Referred To Contact Ophthalmology Diagnoses Type 2 diabetes mellitus with microalbuminuria, with long-term current use of insulin (HCC) Age-related cataract of both eyes, unspecified age-related cataract type Procedures CONSULT TO OPHTHALMOLOGY OFFICE/OUTPATIENT [facility] 60-74 MINUTES Scott Livingston PA-C [address] [place] [address] Referral ID Status Reason Start Date Expiration Date Visits Requested Visits Authorized [id number] Pending Review PCP Requested Referral 10/22/2021 10/22/2022 1 1 Specialty Diagnoses / Procedures Referred By Contac t Referred [facility] Contact [facility] Diagnoses Nonrheumatic aortic valve stenosis Bicuspid aortic valve LVH (left ventricular hypertrophy) Procedures ECHO ECHO TTHRC R-T 2D W/WOM-MODE COMPL SPEC&COLR D Scott Livingston PA-C [address] [place] [address] Heart [facility]ascular [place] [address] [place] [address] Referral ID Status Reason Start Date Expiration Date Visits Requested Visits Authorized [id number] Authorized Auto-Generat ed Referral 10/22/2021 10/22/2022 1 1 Specialty Diagnoses / Procedures Referred By Contac t Referred To Contact Ophthalmology Diagnoses Type 2 diabetes mellitus with microalbuminuria, with long-term current use of insulin (HCC) Controlled type 2 diabetes mellitus with diabetic neuropathy, with long-term current use of insulin (HCC) Procedures CONSULT TO OPHTHALMOLOGY OFFICE/OUTPATIENT [facility] 60-74 MINUTES Alyson Arthur MD [address] [place] [address] Referral ID Status Reason Start Date Expiration Date Visits Requested Visits Authorized [id number] Pending Review PCP Requested Referral 05/20/2022 05/20/2023 1 1 Specialty Diagnoses / Procedures Referred By Contac t Referred To Contact Cardiology Diagnoses Bicuspid aortic valve Procedures CONSULT TO CARDIOLOGY OFFICE/OUTPATIENT [facility] 60-74 MINUTES Alyson Arthur MD [address] [place] [address] Referral ID Status Reason Start Date Expiration Date Visits Requested Visits Authorized [id number] Pending Review PCP Requested Referral 05/20/2022 05/20/2023 1 1 Specialty Diagnoses / Procedures Referred By Contac t Referred To Contact CT IMAGING Diagnoses Encounter for screening for lung cancer Tobacco use current Procedures CT LUNG SCREEN WO IVCON COMPUTED TOMOGRAPHY THORAX LW DOSE LNG CA Amauri Kapadia, TECHNICAL ACCOUNT REPRESENTATIVE.GUEST HISTORY CLERK [address] [place] [address] Ct Imaging Referral ID Status Reason Start Date Expiration Date Visits Requested Visits Authorized [id number] Pending Review Auto-Generat ed Referral 07/16/2023 08/14/2023 1 1 Specialty Diagnoses / Procedures Referred By Contac t Referred To Contact Diagnoses Dyspnea, unspecified type Chronic obstructive pulmonary disease, unspecified COPD type (HCC) Alyson Arthur MD [address] [place] [address] Referral ID Status Reason Start Date Expiration Date V isits Requested Visits Authorized [id number] Pending Review 1 1 Specialty Diagnoses / Procedures Referred By Contac t Referred To Contact Diagnoses Lumbar radiculopathy Procedures CONSULT TO SPINE SURGERY Alyson Arthur MD [address] [place] [address] Referral ID Status Reason Start Date Expiration Date Visits Requested Visits Authorized [id number] Ref Not Required PCP Requested Referral 09/28/2022 09/28/2023 1 1 Specialty Diagnoses / Procedures Referred By Contac t Referred To Contact Cardiothoracic Surgery Diagnoses Aortic valve stenosis, etiology of cardiac valve disease unspecified Bicuspid aortic valve Procedures CONSULT TO CARDIOTHORACIC SURGERY Kathy Colbert, TECHNICAL ACCOUNT REPRESENTATIVE.GUEST HISTORY CLERK [address] [place] [address] Benjamin Pike MD [address] [place] [address] Referral ID Status Reason Start Date Expiration Date Visits Requested Visits Authorized [id number] Ref Not Required PCP Requested Referral 10/03/2022 10/03/2023 1 1 Specialty Diagnoses / Procedures Referred By Contac t Referred To Contact General Surgery Diagnoses Cutaneous abscess of right lower extremity Cellulitis of skin Procedures CONSULT TO GENERAL SURGERY OFFICE/OUTPATIENT [facility] 60-74 MINUTES Alyson Arthur MD [address] [place] [address] Referral ID Status Reason Start Date Expiration Date Visits Requested Visits Authorized [id number] Pending Review PCP Requested Referral 10/25/2022 10/25/2023 1 1 Specialty Diagnoses / Procedures Referred By Contac t Referred To Contact MR IMAGING Diagnoses Vision changes Headache, unspecified headache type Procedures MRI BRAIN WO IVCON MRI BRAIN BRAIN STEM W/O CONTRAST MATERIAL Alyson Arthur MD [address] [place] [address] Mr Imaging [id number] Referral ID Status Reason Start Date Expiration Date Visits Requested Visits Authorized [id number] Pending Review Auto-Generat ed Referral 10/25/2022 11/24/2023 1 1 Specialty Diagnoses / Procedures Referred By Contac t Referred To Contact CT IMAGING Diagnoses Encounter for preprocedural cardiovascular examination Sleep apnea, unspecified type Bicuspid aortic valve Nonrheumatic aortic valve stenosis Preoperative testing Procedures CTA CHEST (GATED) WO/W IVCON CT ANGIOGRAPHY CHEST W/CONTRAST/NONCONTRAST Leandro Foster, TECHNICAL ACCOUNT REPRESENTATIVE.GUEST HISTORY CLERK [address] [place] [address] [place] [address] Referral ID Status Reason Start Date Expiration Date Visits Requested Visits Authorized [id number] Pending Review Auto-Generat ed Referral 11/08/2022 12/08/2023 1 1 Specialty Diagnoses / Procedures Referred By Contac t Referred To Contact CT IMAGING Diagnoses Encounter for preprocedural cardiovascular examination Sleep apnea, unspecified type Bicuspid aortic valve Nonrheumatic aortic valve stenosis Preoperative testing Procedures CTA ABD/PEL W IVCON CT ANGIO ABD&PLVIS CNTRST MTRL W/WO CNTRST IMGES Leandro Foster, PRICILA.GUEST HISTORY CLERK [address] [place] [address] [place] [address] Referral ID Status Reason Start Date Expiration Date Visits Requested Visits Authorized [id number] Pending Review Auto-Generat ed Referral 11/08/2022 12/08/2023 1 1 Specialty Diagnoses / Procedures Referred By Contac t Referred To Contact [facility] Diagnoses Encounter for preprocedural cardiovascular examination Sleep apnea, unspecified type Bicuspid aortic valve Nonrheumatic aortic valve stenosis Preoperative testing Procedures LUNG VOLUMES Leandro Foster APRN.GUEST HISTORY CLERK [address] [place] [address] Respiratory [place] [address] [place] [address] Referral ID Status Reason Start Date Expiration Date Visits Requested Visits Authorized [id number] Pending Review Auto-Generat ed Referral 11/08/2022 12/08/2023 1 1 Specialty Diagnoses / Procedures Referred By Contac t Referred To Contact [facility] Diagnoses Encounter for preprocedural cardiovascular examination Sleep apnea, unspecified type Bicuspid aortic valve Nonrheumatic aortic valve stenosis Preoperative testing Procedures LUNG DIFFUSION CAPACITY (DLCO) DIFFUSING CAPACITY Leandro Foster, PRICILA.GUEST HISTORY CLERK [address] [place] [address] Respiratory [place] [address] [place] [address] Referral ID Status Reason Start Date Expiration Date Visits Requested Visits Authorized [id number] Pending Review Auto-Generat ed Referral 11/08/2022 12/08/2023 1 1 Specialty Diagnoses / Procedures Referred By Contac t Referred To [facility] Diagnoses Encounter for preprocedural cardiovascular examination Sleep apnea, unspecified type Bicuspid aortic valve Nonrheumatic aortic valve stenosis Preoperative testing Procedures SPIROMETRY BASELINE ONLY SPMTRY W/VC EXPIRATORY JUAN W/WO MXML VOL VNTJ Leandro Foster, TECHNICAL ACCOUNT REPRESENTATIVE.GUEST HISTORY CLERK [address] [place] [address] [address] [address] Referral ID Status Reason Start Date Expiration Date Visits Requested Visits Authorized [id number] Pending Review Auto-Generat ed Referral 11/08/2022 12/08/2023 1 1 Specialty Diagnoses / Procedures Referred By Ade t Referred To Contact Alyson Arthur MD [address] [place] [address] Referral ID Status Reason Start Date Expiration Date V isits Requested Visits Authorized [id number] Pending Review 1 1 Specialty Diagnoses / Procedures Referred By Contac t Referred To Contact Podiatry Diagnoses Blister (nonthermal), right foot, initial encounter Controlled type 2 diabetes mellitus with diabetic neuropathy, with long-term current use of insulin (HCC) Procedures CONSULT TO PODIATRY OFFICE/OUTPATIENT [facility] MDM 60-74 MINUTES Pascual Bacon MD [address] [place] [address] Referral ID Status Reason Start Date Expiration Date Visits Requested Visits Authorized [id number] Pending Review PCP Requested Referral 3 11/30/2023 1 1 Referral ID Status Reason Start Date Expiration Date Visits Re quested Visits Authorized [id number] Closed 1 1 Specialty Diagnoses / Procedures Referred By Ade t Referred To Contact CT IMAGING Diagnoses Encounter for screening for lung cancer Tobacco use current Procedures CT LUNG SCREEN WO IVCON COMPUTED TOMOGRAPHY THORAX LW DOSE LNG CA SCR C- Deysi, Amauri, TECHNICAL ACCOUNT REPRESENTATIVE.GUEST HISTORY CLERK [address] [place] [address] Ct Imaging [id number] Referral ID Status Reason Start Date Expiration Date V isits Requested Visits Authorized [id number] Closed Auto-Generate d Referral 06/28/2022 07/28/2023 1 1 Referral ID Status Reason Start Date Expiration Date Visits Re quested Visits Authorized [id number] Closed 1 1 Specialty Diagnoses / Procedures Referred By Ade t Referred To Contact Procedures CARDIOVASCULAR MEDICINE OP FOLLOW UP APPT ORDER Kiel Barnes MD [address] [place] [address] Referral ID Status Reason Start Date Expiration Date Visits Requested Visits Authorized [id number] Ref Not Required PCP Requested Referral 03/16/2023 03/15/2024 1 1 Specialty Diagnoses / Procedures Referred By Contac t Referred To Contact Neurology Diagnoses Right hemiparesis (HCC) Slurred speech Mild CAD Dysarthria Arterial ischemic stroke, MCA (middle cerebral artery), left, acute (HCC) Procedures CONSULT TO NEUROLOGY OFFICE/OUTPATIENT [facility] 60 MINUTES Alyson Arthur MD [address] [place] [address] Referral ID Status Reason Start Date Expiration Date Visits Requested Visits Authorized [id number] Authorized PCP Requested Referral 05/22/2023 05/21/2024 1 1 Specialty Diagnoses / Procedures Referred By Contac t Referred To Contact XR IMAGING Diagnoses Small bowel obstruction (HCC) Procedures XR ABDOMEN 1V SUPINE RADIOLOGIC EXAM ABDOMEN 1 VIEW Alyson Arthur MD [address] [place] [address] [place] [id number] Referral ID Status Reason Start Date Expiration Date V isits Requested Visits Authorized [id number] Closed Auto-Generate d Referral 05/22/2023 06/20/2024 1 1 Specialty Diagnoses / Procedures Referred By Contac t Referred To Contact Diagnoses [place] [address] [place] [address] Referral ID Status Reason Start Date Expiration Date V isits Requested Visits Authorized [id number] Pending Review 1 1 Referral ID Status Reason Start Date Expiration Date Visits Re quested Visits Authorized [id number] Denied 1 1 Specialty Diagnoses / Procedures Referred By Contac t Referred [facility] Procedures CARDIOVASCULAR MEDICINE OP FO[place] [address] [place] [id number] [facility] [place] [address] [place] [id number] Referral ID Status Reason Start Date Expiration Date Visits Requested Visits Authorized [id number] Ref Not Required PCP Requested Referral 06/06/2023 06/05/2024 1 1 Specialty Diagnoses / Procedures Referred By Contac t Referred To Contact CT IMAGING Diagnoses 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) Procedures CTA CHEST (GATED) W IVCON CT ANGIOGRAPHY CHEST W/CONTRAST/NONCONTRAST Elma Hester, PRICILA.GUEST HISTORY CLERK [address] [place] [address] [place] [address] Referral ID Status Reason Start Date Expiration Date V isits Requested Visits Authorized [id number] Closed Auto-Generate d Referral 03/28/2023 04/26/2024 1 1 Specialty Diagnoses / Procedures Referred By Contac t Referred To Contact Gastroenterology Diagnoses SBO (small bowel obstruction) ([facility]) Procedures CONSULT TO GASTROENTEROLOGY OFFICE/OUTPATIENT [facility] 60 MINUTES Angela Schmid, TECHNICAL ACCOUNT REPRESENTATIVE.GUEST HISTORY CLERK [address] [place] [address] Referral ID Status Reason Start Date Expiration Date Visits Requested Visits Authorized [id number] Authorized PCP Requested Referral 07/05/2023 07/04/2024 1 1 Medications Administered Section Active Administered Medications - up to 3 most recent administrations Medication Order MAR Action Action Date Dose Rate Site PHENYLephrine 2.5 % 1 Drop (AK-DILATE, DREAD-SYNEPHRINE) 1 Drop, BOTH EYES, DIRECTED, Starting on Mon05/31/22 at 1430, Until Mon06/01/22 at 022, Administer for dilation PROTECT FROM LIGHT Given [...] 2:30 PM EDT 1 Drop Summary Purpose Additional Source Comments Source Comments (unrecognize d section and content) In the event this informatio n is protected by the Federal Confidentiality of Alcohol and Drug Abuse Patient Records regulations: The Federal rules restrict any use of the information to criminally investigate or prosecute any alcohol or drug abuse patient.[facility] the event this information is protected by the Federal Confidentiality of Alcohol and Drug Abuse Patient Records regulations: The Federal rules restrict any use of the information to criminally investigate or prosecute any alcohol or drug abuse patient.[facility] HospitalIn the event this information is protected by the Federal Confidentiality of Alcohol and Drug Abuse Patient Records regulations: The Federal rules restrict any use of the information to criminally investigate or prosecute any alcohol or drug abuse patient.[facility] HospitalIn the event this information is protected by the Federal Confidentiality of Alcohol and Drug Abuse Patient Records regulations: The Federal rules restrict any use of the information to criminally investigate or prosecute any alcohol or drug abuse patient.[facility] HospitalIn the event this information is protected by the Federal Confidentiality of Alcohol and Drug Abuse Patient Records regulations: The Federal rules restrict any use of the information to criminally investigate or prosecute any alcohol or drug abuse patient.[facility] HospitalIn the event this information is protected by the Federal Confidentiality of Alcohol and Drug Abuse Patient Records regulations: The Federal rules restrict any use of the information to criminally investigate or prosecute any alcohol or drug abuse patient.[facility] HospitalIn the event this information is protected by the Federal Confidentiality of Alcohol and Drug Abuse Patient Records regulations: The Federal rules restrict any use of the information to criminally investigate or prosecute any alcohol or drug abuse patient.[facility] HospitalIn the event this information is protected by the Federal Confidentiality of Alcohol and Drug Abuse Patient Records regulations: The Federal rules restrict any use of the information to criminally investigate or prosecute any alcohol or drug abuse patient.[facility] HospitalIn the event this information is protected by the Federal Confidentiality of Alcohol and Drug Abuse Patient Records regulations: The Federal rules restrict any use of the information to criminally investigate or prosecute any alcohol or drug abuse patient.[facility] HospitalIn the event this information is protected by the Federal Confidentiality of Alcohol and Drug Abuse Patient Records regulations: The Federal rules restrict any use of the information to criminally investigate or prosecute any alcohol or drug abuse patient.[facility] HospitalIn the event this information is protected by the Federal Confidentiality of Alcohol and Drug Abuse Patient Records regulations: The Federal rules restrict any use of the information to criminally investigate or prosecute any alcohol or drug abuse patient.[facility] HospitalIn the event this information is protected by the Federal Confidentiality of Alcohol and Drug Abuse Patient Records regulations: The Federal rules restrict any use of the information to criminally investigate or prosecute any alcohol or drug abuse patient.[facility] HospitalIn the event this information is protected by the Federal Confidentiality of Alcohol and Drug Abuse Patient Records regulations: The Federal rules restrict any use of the information to criminally investigate or prosecute any alcohol or drug abuse patient.[facility] HospitalIn the event this information is protected by the Federal Confidentiality of Alcohol and Drug Abuse Patient Records regulations: The Federal rules restrict any use of the information to criminally investigate or prosecute any alcohol or drug abuse patient.[facility] HospitalIn the event this information is protected by the Federal Confidentiality of Alcohol and Drug Abuse Patient Records regulations: The Federal rules restrict any use of the information to criminally investigate or prosecute any alcohol or drug abuse patient.[facility] HospitalIn the event this information is protected by the Federal Confidentiality of Alcohol and Drug Abuse Patient Records regulations: The Federal rules restrict any use of the information to criminally investigate or prosecute any alcohol or drug abuse patient.[facility] HospitalIn the event this information is protected by the Federal Confidentiality of Alcohol and Drug Abuse Patient Records regulations: The Federal rules restrict any use of the information to criminally investigate or prosecute any alcohol or drug abuse patient.[facility] HospitalIn the event this information is protected by the Federal Confidentiality of Alcohol and Drug Abuse Patient Records regulations: The Federal rules restrict any use of the information to criminally investigate or prosecute any alcohol or drug abuse patient.[facility] HospitalIn the event this information is protected by the Federal Confidentiality of Alcohol and Drug Abuse Patient Records regulations: The Federal rules restrict any use of the information to criminally investigate or prosecute any alcohol or drug abuse patient.[facility] HospitalIn the event this information is protected by the Federal Confidentiality of Alcohol and Drug Abuse Patient Records regulations: The Federal rules restrict any use of the information to criminally investigate or prosecute any alcohol or drug abuse patient.[facility] HospitalIn the event this information is protected by the Federal Confidentiality of Alcohol and Drug Abuse Patient Records regulations: The Federal rules restrict any use of the information to criminally investigate or prosecute any alcohol or drug abuse patient.[facility] HospitalIn the event this information is protected by the Federal Confidentiality of Alcohol and Drug Abuse Patient Records regulations: The Federal rules restrict any use of the information to criminally investigate or prosecute any alcohol or drug abuse patient.[facility] HospitalIn the event this information is protected by the Federal Confidentiality of Alcohol and Drug Abuse Patient Records regulations: The Federal rules restrict any use of the information to criminally investigate or prosecute any alcohol or drug abuse patient.[facility] HospitalIn the event this information is protected by the Federal Confidentiality of Alcohol and Drug Abuse Patient Records regulations: The Federal rules restrict any use of the information to criminally investigate or prosecute any alcohol or drug abuse patient.[facility] HospitalIn the event this information is protected by the Federal Confidentiality of Alcohol and Drug Abuse Patient Records regulations: The Federal rules restrict any use of the information to criminally investigate or prosecute any alcohol or drug abuse patient.[facility] HospitalIn the event this information is protected by the Federal Confidentiality of Alcohol and Drug Abuse Patient Records regulations: The Federal rules restrict any use of the information to criminally investigate or prosecute any alcohol or drug abuse patient.[facility] HospitalIn the event this information is protected by the Federal Confidentiality of Alcohol and Drug Abuse Patient Records regulations: The Federal rules restrict any use of the information to criminally investigate or prosecute any alcohol or drug abuse patient.[facility] HospitalIn the event this information is protected by the Federal Confidentiality of Alcohol and Drug Abuse Patient Records regulations: The Federal rules restrict any use of the information to criminally investigate or prosecute any alcohol or drug abuse patient.[facility] HospitalIn the event this information is protected by the Federal Confidentiality of Alcohol and Drug Abuse Patient Records regulations: The Federal rules restrict any use of the information to criminally investigate or prosecute any alcohol or drug abuse patient.[facility] HospitalIn the event this information is protected by the Federal Confidentiality of Alcohol and Drug Abuse Patient Records regulations: The Federal rules restrict any use of the information to criminally investigate or prosecute any alcohol or drug abuse patient.[facility] HospitalIn the event this information is protected by the Federal Confidentiality of Alcohol and Drug Abuse Patient Records regulations: The Federal rules restrict any use of the information to criminally investigate or prosecute any alcohol or drug abuse patient.[facility] HospitalIn the event this information is protected by the Federal Confidentiality of Alcohol and Drug Abuse Patient Records regulations: The Federal rules restrict any use of the information to criminally investigate or prosecute any alcohol or drug abuse patient.[facility] HospitalIn the event this information is protected by the Federal Confidentiality of Alcohol and Drug Abuse Patient Records regulations: The Federal rules restrict any use of the information to criminally investigate or prosecute any alcohol or drug abuse patient.[facility] HospitalIn the event this information is protected by the Federal Confidentiality of Alcohol and Drug Abuse Patient Records regulations: The Federal rules restrict any use of the information to criminally investigate or prosecute any alcohol or drug abuse patient.[facility] HospitalIn the event this information is protected by the Federal Confidentiality of Alcohol and Drug Abuse Patient Records regulations: The Federal rules restrict any use of the information to criminally investigate or prosecute any alcohol or drug abuse patient.[facility] HospitalIn the event this information is protected by the Federal Confidentiality of Alcohol and Drug Abuse Patient Records regulations: The Federal rules restrict any use of the information to criminally investigate or prosecute any alcohol or drug abuse patient.[facility] HospitalIn the event this information is protected by the Federal Confidentiality of Alcohol and Drug Abuse Patient Records regulations: The Federal rules restrict any use of the information to criminally investigate or prosecute any alcohol or drug abuse patient.[facility] HospitalIn the event this information is protected by the Federal Confidentiality of Alcohol and Drug Abuse Patient Records regulations: The Federal rules restrict any use of the information to criminally investigate or prosecute any alcohol or drug abuse patient.[facility] HospitalIn the event this information is protected by the Federal Confidentiality of Alcohol and Drug Abuse Patient Records regulations: The Federal rules restrict any use of the information to criminally investigate or prosecute any alcohol or drug abuse patient.[facility] HospitalIn the event this information is protected by the Federal Confidentiality of Alcohol and Drug Abuse Patient Records regulations: The Federal rules restrict any use of the information to criminally investigate or prosecute any alcohol or drug abuse patient.[facility] HospitalIn the event this information is protected by the Federal Confidentiality of Alcohol and Drug Abuse Patient Records regulations: The Federal rules restrict any use of the information to criminally investigate or prosecute any alcohol or drug abuse patient.[facility] HospitalIn the event this information is protected by the Federal Confidentiality of Alcohol and Drug Abuse Patient Records regulations: The Federal rules restrict any use of the information to criminally investigate or prosecute any alcohol or drug abuse patient.[facility] HospitalIn the event this information is protected by the Federal Confidentiality of Alcohol and Drug Abuse Patient Records regulations: The Federal rules restrict any use of the information to criminally investigate or prosecute any alcohol or drug abuse patient.[facility] HospitalIn the event this information is protected by the Federal Confidentiality of Alcohol and Drug Abuse Patient Records regulations: The Federal rules restrict any use of the information to criminally investigate or prosecute any alcohol or drug abuse patient.[facility] HospitalIn the event this information is protected by the Federal Confidentiality of Alcohol and Drug Abuse Patient Records regulations: The Federal rules restrict any use of the information to criminally investigate or prosecute any alcohol or drug abuse patient.[facility] HospitalIn the event this information is protected by the Federal Confidentiality of Alcohol and Drug Abuse Patient Records regulations: The Federal rules restrict any use of the information to criminally investigate or prosecute any alcohol or drug abuse patient.[facility] HospitalIn the event this information is protected by the Federal Confidentiality of Alcohol and Drug Abuse Patient Records regulations: The Federal rules restrict any use of the information to criminally investigate or prosecute any alcohol or drug abuse patient.[facility] HospitalIn the event this information is protected by the Federal Confidentiality of Alcohol and Drug Abuse Patient Records regulations: The Federal rules restrict any use of the information to criminally investigate or prosecute any alcohol or drug abuse patient.[facility] HospitalIn the event this information is protected by the Federal Confidentiality of Alcohol and Drug Abuse Patient Records regulations: The Federal rules restrict any use of the information to criminally investigate or prosecute any alcohol or drug abuse patient.[facility] HospitalIn the event this information is protected by the Federal Confidentiality of Alcohol and Drug Abuse Patient Records regulations: The Federal rules restrict any use of the information to criminally investigate or prosecute any alcohol or drug abuse patient.[facility] HospitalIn the event this information is protected by the Federal Confidentiality of Alcohol and Drug Abuse Patient Records regulations: The Federal rules restrict any use of the information to criminally investigate or prosecute any alcohol or drug abuse patient.[facility] HospitalIn the event this information is protected by the Federal Confidentiality of Alcohol and Drug Abuse Patient Records regulations: The Federal rules restrict any use of the information to criminally investigate or prosecute any alcohol or drug abuse patient.[facility] HospitalIn the event this information is protected by the Federal Confidentiality of Alcohol and Drug Abuse Patient Records regulations: The Federal rules restrict any use of the information to criminally investigate or prosecute any alcohol or drug abuse patient.[facility] HospitalIn the event this information is protected by the Federal Confidentiality of Alcohol and Drug Abuse Patient Records regulations: The Federal rules restrict any use of the information to criminally investigate or prosecute any alcohol or drug abuse patient.[facility] HospitalIn the event this information is protected by the Federal Confidentiality of Alcohol and Drug Abuse Patient Records regulations: The Federal rules restrict any use of the information to criminally investigate or prosecute any alcohol or drug abuse patient.[facility] HospitalIn the event this information is protected by the Federal Confidentiality of Alcohol and Drug Abuse Patient Records regulations: The Federal rules restrict any use of the information to criminally investigate or prosecute any alcohol or drug abuse patient.[facility] HospitalIn the event this information is protected by the Federal Confidentiality of Alcohol and Drug Abuse Patient Records regulations: The Federal rules restrict any use of the information to criminally investigate or prosecute any alcohol or drug abuse patient.[facility] HospitalIn the event this information is protected by the Federal Confidentiality of Alcohol and Drug Abuse Patient Records regulations: The Federal rules restrict any use of the information to criminally investigate or prosecute any alcohol or drug abuse patient.[facility] HospitalIn the event this information is protected by the Federal Confidentiality of Alcohol and Drug Abuse Patient Records regulations: The Federal rules restrict any use of the information to criminally investigate or prosecute any alcohol or drug abuse patient.[facility] HospitalIn the event this information is protected by the Federal Confidentiality of Alcohol and Drug Abuse Patient Records regulations: The Federal rules restrict any use of the information to criminally investigate or prosecute any alcohol or drug abuse patient.[facility] HospitalIn the event this information is protected by the Federal Confidentiality of Alcohol and Drug Abuse Patient Records regulations: The Federal rules restrict any use of the information to criminally investigate or prosecute any alcohol or drug abuse patient.[facility] HospitalIn the event this information is protected by the Federal Confidentiality of Alcohol and Drug Abuse Patient Records regulations: The Federal rules restrict any use of the information to criminally investigate or prosecute any alcohol or drug abuse patient.[facility] HospitalIn the event this information is protected by the Federal Confidentiality of Alcohol and Drug Abuse Patient Records regulations: The Federal rules restrict any use of the information to criminally investigate or prosecute any alcohol or drug abuse patient.[facility] HospitalIn the event this information is protected by the Federal Confidentiality of Alcohol and Drug Abuse Patient Records regulations: The Federal rules restrict any use of the information to criminally investigate or prosecute any alcohol or drug abuse patient.[facility] HospitalIn the event this information is protected by the Federal Confidentiality of Alcohol and Drug Abuse Patient Records regulations: The Federal rules restrict any use of the information to criminally investigate or prosecute any alcohol or drug abuse patient.[facility] HospitalIn the event this information is protected by the Federal Confidentiality of Alcohol and Drug Abuse Patient Records regulations: The Federal rules restrict any use of the information to criminally investigate or prosecute any alcohol or drug abuse patient.[facility] HospitalIn the event this information is protected by the Federal Confidentiality of Alcohol and Drug Abuse Patient Records regulations: The Federal rules restrict any use of the information to criminally investigate or prosecute any alcohol or drug abuse patient.[facility] HospitalIn the event this information is protected by the Federal Confidentiality of Alcohol and Drug Abuse Patient Records regulations: The Federal rules restrict any use of the information to criminally investigate or prosecute any alcohol or drug abuse patient.[facility]In the event this information is protected by the Federal Confidentiality of Alcohol and Drug Abuse Patient Records regulations: The Federal rules restrict any use of the information to criminally investigate or prosecute any alcohol or drug abuse patient.[facility] HospitalIn the event this information is protected by the Federal Confidentiality of Alcohol and Drug Abuse Patient Records regulations: The Federal rules restrict any use of the information to criminally investigate or prosecute any alcohol or drug abuse patient.[facility] HospitalIn the event this information is protected by the Federal Confidentiality of Alcohol and Drug Abuse Patient Records regulations: The Federal rules restrict any use of the information to criminally investigate or prosecute any alcohol or drug abuse patient.[facility] HospitalIn the event this information is protected by the Federal Confidentiality of Alcohol and Drug Abuse Patient Records regulations: The Federal rules restrict any use of the information to criminally investigate or prosecute any alcohol or drug abuse patient.[facility] HospitalIn the event this information is protected by the Federal Confidentiality of Alcohol and Drug Abuse Patient Records regulations: The Federal rules restrict any use of the information to criminally investigate or prosecute any alcohol or drug abuse patient.[facility] HospitalIn the event this information is protected by the Federal Confidentiality of Alcohol and Drug Abuse Patient Records regulations: The Federal rules restrict any use of the information to criminally investigate or prosecute any alcohol or drug abuse patient.[facility] HospitalIn the event this information is protected by the Federal Confidentiality of Alcohol and Drug Abuse Patient Records regulations: The Federal rules restrict any use of the information to criminally investigate or prosecute any alcohol or drug abuse patient.[facility] HospitalIn the event this information is protected by the Federal Confidentiality of Alcohol and Drug Abuse Patient Records regulations: The Federal rules restrict any use of the information to criminally investigate or prosecute any alcohol or drug abuse patient.[facility] HospitalIn the event this information is protected by the Federal Confidentiality of Alcohol and Drug Abuse Patient Records regulations: The Federal rules restrict any use of the information to criminally investigate or prosecute any alcohol or drug abuse patient.[facility] HospitalIn the event this information is protected by the Federal Confidentiality of Alcohol and Drug Abuse Patient Records regulations: The Federal rules restrict any use of the information to criminally investigate or prosecute any alcohol or drug abuse patient.[facility] HospitalIn the event this information is protected by the Federal Confidentiality of Alcohol and Drug Abuse Patient Records regulations: The Federal rules restrict any use of the information to criminally investigate or prosecute any alcohol or drug abuse patient.[facility] HospitalIn the event this information is protected by the Federal Confidentiality of Alcohol and Drug Abuse Patient Records regulations: The Federal rules restrict any use of the information to criminally investigate or prosecute any alcohol or drug abuse patient.[facility] HospitalIn the event this information is protected by the Federal Confidentiality of Alcohol and Drug Abuse Patient Records regulations: The Federal rules restrict any use of the information to criminally investigate or prosecute any alcohol or drug abuse patient.[facility] HospitalIn the event this information is protected by the Federal Confidentiality of Alcohol and Drug Abuse Patient Records regulations: The Federal rules restrict any use of the information to criminally investigate or prosecute any alcohol or drug abuse patient.[facility] HospitalIn the event this information is protected by the Federal Confidentiality of Alcohol and Drug Abuse Patient Records regulations: The Federal rules restrict any use of the information to criminally investigate or prosecute any alcohol or drug abuse patient.[facility] HospitalIn the event this information is protected by the Federal Confidentiality of Alcohol and Drug Abuse Patient Records regulations: The Federal rules restrict any use of the information to criminally investigate or prosecute any alcohol or drug abuse patient.[facility] HospitalIn the event this information is protected by the Federal Confidentiality of Alcohol and Drug Abuse Patient Records regulations: The Federal rules restrict any use of the information to criminally investigate or prosecute any alcohol or drug abuse patient.[facility] HospitalIn the event this information is protected by the Federal Confidentiality of Alcohol and Drug Abuse Patient Records regulations: The Federal rules restrict any use of the information to criminally investigate or prosecute any alcohol or drug abuse patient.[facility] HospitalIn the event this information is protected by the Federal Confidentiality of Alcohol and Drug Abuse Patient Records regulations: The Federal rules restrict any use of the information to criminally investigate or prosecute any alcohol or drug abuse patient.[facility] HospitalIn the event this information is protected by the Federal Confidentiality of Alcohol and Drug Abuse Patient Records regulations: The Federal rules restrict any use of the information to criminally investigate or prosecute any alcohol or drug abuse patient.[facility] HospitalIn the event this information is protected by the Federal Confidentiality of Alcohol and Drug Abuse Patient Records regulations: The Federal rules restrict any use of the information to criminally investigate or prosecute any alcohol or drug abuse patient.[facility] HospitalIn the event this information is protected by the Federal Confidentiality of Alcohol and Drug Abuse Patient Records regulations: The Federal rules restrict any use of the information to criminally investigate or prosecute any alcohol or drug abuse patient.[facility] HospitalIn the event this information is protected by the Federal Confidentiality of Alcohol and Drug Abuse Patient Records regulations: The Federal rules restrict any use of the information to criminally investigate or prosecute any alcohol or drug abuse patient.[facility] HospitalIn the event this information is protected by the Federal Confidentiality of Alcohol and Drug Abuse Patient Records regulations: The Federal rules restrict any use of the information to criminally investigate or prosecute any alcohol or drug abuse patient.[facility] HospitalIn the event this information is protected by the Federal Confidentiality of Alcohol and Drug Abuse Patient Records regulations: The Federal rules restrict any use of the information to criminally investigate or prosecute any alcohol or drug abuse patient.[facility] HospitalIn the event this information is protected by the Federal Confidentiality of Alcohol and Drug Abuse Patient Records regulations: The Federal rules restrict any use of the information to criminally investigate or prosecute any alcohol or drug abuse patient.[facility] HospitalIn the event this information is protected by the Federal Confidentiality of Alcohol and Drug Abuse Patient Records regulations: The Federal rules restrict any use of the information to criminally investigate or prosecute any alcohol or drug abuse patient.[facility] HospitalIn the event this information is protected by the Federal Confidentiality of Alcohol and Drug Abuse Patient Records regulations: The Federal rules restrict any use of the information to criminally investigate or prosecute any alcohol or drug abuse patient.[facility] HospitalIn the event this information is protected by the Federal Confidentiality of Alcohol and Drug Abuse Patient Records regulations: The Federal rules restrict any use of the information to criminally investigate or prosecute any alcohol or drug abuse patient.[facility] HospitalIn the event this information is protected by the Federal Confidentiality of Alcohol and Drug Abuse Patient Records regulations: The Federal rules restrict any use of the information to criminally investigate or prosecute any alcohol or drug abuse patient.[facility] HospitalIn the event this information is protected by the Federal Confidentiality of Alcohol and Drug Abuse Patient Records regulations: The Federal rules restrict any use of the information to criminally investigate or prosecute any alcohol or drug abuse patient.[facility] HospitalIn the event this information is protected by the Federal Confidentiality of Alcohol and Drug Abuse Patient Records regulations: The Federal rules restrict any use of the information to criminally investigate or prosecute any alcohol or drug abuse patient.[facility] HospitalIn the event this information is protected by the Federal Confidentiality of Alcohol and Drug Abuse Patient Records regulations: The Federal rules restrict any use of the information to criminally investigate or prosecute any alcohol or drug abuse patient.[facility] HospitalIn the event this information is protected by the Federal Confidentiality of Alcohol and Drug Abuse Patient Records regulations: The Federal rules restrict any use of the information to criminally investigate or prosecute any alcohol or drug abuse patient.[facility] HospitalIn the event this information is protected by the Federal Confidentiality of Alcohol and Drug Abuse Patient Records regulations: The Federal rules restrict any use of the information to criminally investigate or prosecute any alcohol or drug abuse patient.[facility] HospitalIn the event this information is protected by the Federal Confidentiality of Alcohol and Drug Abuse Patient Records regulations: The Federal rules restrict any use of the information to criminally investigate or prosecute any alcohol or drug abuse patient.[facility] HospitalIn the event this information is protected by the Federal Confidentiality of Alcohol and Drug Abuse Patient Records regulations: The Federal rules restrict any use of the information to criminally investigate or prosecute any alcohol or drug abuse patient.[facility] HospitalIn the event this information is protected by the Federal Confidentiality of Alcohol and Drug Abuse Patient Records regulations: The Federal rules restrict any use of the information to criminally investigate or prosecute any alcohol or drug abuse patient.[facility] HospitalIn the event this information is protected by the Federal Confidentiality of Alcohol and Drug Abuse Patient Records regulations: The Federal rules restrict any use of the information to criminally investigate or prosecute any alcohol or drug abuse patient.[facility] HospitalIn the event this information is protected by the Federal Confidentiality of Alcohol and Drug Abuse Patient Records regulations: The Federal rules restrict any use of the information to criminally investigate or prosecute any alcohol or drug abuse patient.[facility] HospitalIn the event this information is protected by the Federal Confidentiality of Alcohol and Drug Abuse Patient Records regulations: The Federal rules restrict any use of the information to criminally investigate or prosecute any alcohol or drug abuse patient.[facility] HospitalIn the event this information is protected by the Federal Confidentiality of Alcohol and Drug Abuse Patient Records regulations: The Federal rules restrict any use of the information to criminally investigate or prosecute any alcohol or drug abuse patient.[facility] HospitalIn the event this information is protected by the Federal Confidentiality of Alcohol and Drug Abuse Patient Records regulations: The Federal rules restrict any use of the information to criminally investigate or prosecute any alcohol or drug abuse patient.[facility] HospitalIn the event this information is protected by the Federal Confidentiality of Alcohol and Drug Abuse Patient Records regulations: The Federal rules restrict any use of the information to criminally investigate or prosecute any alcohol or drug abuse patient.[facility] HospitalIn the event this information is protected by the Federal Confidentiality of Alcohol and Drug Abuse Patient Records regulations: The Federal rules restrict any use of the information to criminally investigate or prosecute any alcohol or drug abuse patient.[facility] HospitalIn the event this information is protected by the Federal Confidentiality of Alcohol and Drug Abuse Patient Records regulations: The Federal rules restrict any use of the information to criminally investigate or prosecute any alcohol or drug abuse patient.[facility] HospitalIn the event this information is protected by the Federal Confidentiality of Alcohol and Drug Abuse Patient Records regulations: The Federal rules restrict any use of the information to criminally investigate or prosecute any alcohol or drug abuse patient.[facility] HospitalIn the event this information is protected by the Federal Confidentiality of Alcohol and Drug Abuse Patient Records regulations: The Federal rules restrict any use of the information to criminally investigate or prosecute any alcohol or drug abuse patient.[facility] HospitalIn the event this information is protected by the Federal Confidentiality of Alcohol and Drug Abuse Patient Records regulations: The Federal rules restrict any use of the information to criminally investigate or prosecute any alcohol or drug abuse patient.[facility] HospitalIn the event this information is protected by the Federal Confidentiality of Alcohol and Drug Abuse Patient Records regulations: The Federal rules restrict any use of the information to criminally investigate or prosecute any alcohol or drug abuse patient.[facility] HospitalIn the event this information is protected by the Federal Confidentiality of Alcohol and Drug Abuse Patient Records regulations: The Federal rules restrict any use of the information to criminally investigate or prosecute any alcohol or drug abuse patient.[facility] HospitalIn the event this information is protected by the Federal Confidentiality of Alcohol and Drug Abuse Patient Records regulations: The Federal rules restrict any use of the information to criminally investigate or prosecute any alcohol or drug abuse patient.[facility] HospitalIn the event this information is protected by the Federal Confidentiality of Alcohol and Drug Abuse Patient Records regulations: The Federal rules restrict any use of the information to criminally investigate or prosecute any alcohol or drug abuse patient.[facility] HospitalIn the event this information is protected by the Federal Confidentiality of Alcohol and Drug Abuse Patient Records regulations: The Federal rules restrict any use of the information to criminally investigate or prosecute any alcohol or drug abuse patient.[facility] HospitalIn the event this information is protected by the Federal Confidentiality of Alcohol and Drug Abuse Patient Records regulations: The Federal rules restrict any use of the information to criminally investigate or prosecute any alcohol or drug abuse patient.[facility] HospitalIn the event this information is protected by the Federal Confidentiality of Alcohol and Drug Abuse Patient Records regulations: The Federal rules restrict any use of the information to criminally investigate or prosecute any alcohol or drug abuse patient.[facility] HospitalIn the event this information is protected by the Federal Confidentiality of Alcohol and Drug Abuse Patient Records regulations: The Federal rules restrict any use of the information to criminally investigate or prosecute any alcohol or drug abuse patient.[facility] HospitalIn the event this information is protected by the Federal Confidentiality of Alcohol and Drug Abuse Patient Records regulations: The Federal rules restrict any use of the information to criminally investigate or prosecute any alcohol or drug abuse patient.[facility] HospitalIn the event this information is protected by the Federal Confidentiality of Alcohol and Drug Abuse Patient Records regulations: The Federal rules restrict any use of the information to criminally investigate or prosecute any alcohol or drug abuse patient.[facility] HospitalIn the event this information is protected by the Federal Confidentiality of Alcohol and Drug Abuse Patient Records regulations: The Federal rules restrict any use of the information to criminally investigate or prosecute any alcohol or drug abuse patient.[facility] HospitalIn the event this information is protected by the Federal Confidentiality of Alcohol and Drug Abuse Patient Records regulations: The Federal rules restrict any use of the information to criminally investigate or prosecute any alcohol or drug abuse patient.[facility] HospitalIn the event this information is protected by the Federal Confidentiality of Alcohol and Drug Abuse Patient Records regulations: The Federal rules restrict any use of the information to criminally investigate or prosecute any alcohol or drug abuse patient.[facility] HospitalIn the event this information is protected by the Federal Confidentiality of Alcohol and Drug Abuse Patient Records regulations: The Federal rules restrict any use of the information to criminally investigate or prosecute any alcohol or drug abuse patient.[facility] HospitalIn the event this information is protected by the Federal Confidentiality of Alcohol and Drug Abuse Patient Records regulations: The Federal rules restrict any use of the information to criminally investigate or prosecute any alcohol or drug abuse patient.[facility] HospitalIn the event this information is protected by the Federal Confidentiality of Alcohol and Drug Abuse Patient Records regulations: The Federal rules restrict any use of the information to criminally investigate or prosecute any alcohol or drug abuse patient.[facility] HospitalIn the event this information is protected by the Federal Confidentiality of Alcohol and Drug Abuse Patient Records regulations: The Federal rules restrict any use of the information to criminally investigate or prosecute any alcohol or drug abuse patient.[facility] HospitalIn the event this information is protected by the Federal Confidentiality of Alcohol and Drug Abuse Patient Records regulations: The Federal rules restrict any use of the information to criminally investigate or prosecute any alcohol or drug abuse patient.[facility] HospitalIn the event this information is protected by the Federal Confidentiality of Alcohol and Drug Abuse Patient Records regulations: The Federal rules restrict any use of the information to criminally investigate or prosecute any alcohol or drug abuse patient.[facility] HospitalIn the event this information is protected by the Federal Confidentiality of Alcohol and Drug Abuse Patient Records regulations: The Federal rules restrict any use of the information to criminally investigate or prosecute any alcohol or drug abuse patient.[facility] HospitalIn the event this information is protected by the Federal Confidentiality of Alcohol and Drug Abuse Patient Records regulations: The Federal rules restrict any use of the information to criminally investigate or prosecute any alcohol or drug abuse patient.[facility] HospitalIn the event this information is protected by the Federal Confidentiality of Alcohol and Drug Abuse Patient Records regulations: The Federal rules restrict any use of the information to criminally investigate or prosecute any alcohol or drug abuse patient.[facility] HospitalIn the event this information is protected by the Federal Confidentiality of Alcohol and Drug Abuse Patient Records regulations: The Federal rules restrict any use of the information to criminally investigate or prosecute any alcohol or drug abuse patient.[facility] HospitalIn the event this information is protected by the Federal Confidentiality of Alcohol and Drug Abuse Patient Records regulations: The Federal rules restrict any use of the information to criminally investigate or prosecute any alcohol or drug abuse patient.[facility] HospitalIn the event this information is protected by the Federal Confidentiality of Alcohol and Drug Abuse Patient Records regulations: The Federal rules restrict any use of the information to criminally investigate or prosecute any alcohol or drug abuse patient.[facility] HospitalIn the event this information is protected by the Federal Confidentiality of Alcohol and Drug Abuse Patient Records regulations: The Federal rules restrict any use of the information to criminally investigate or prosecute any alcohol or drug abuse patient.[facility] HospitalIn the event this information is protected by the Federal Confidentiality of Alcohol and Drug Abuse Patient Records regulations: The Federal rules restrict any use of the information to criminally investigate or prosecute any alcohol or drug abuse patient.[facility] HospitalIn the event this information is protected by the Federal Confidentiality of Alcohol and Drug Abuse Patient Records regulations: The Federal rules restrict any use of the information to criminally investigate or prosecute any alcohol or drug abuse patient.[facility] HospitalIn the event this information is protected by the Federal Confidentiality of Alcohol and Drug Abuse Patient Records regulations: The Federal rules restrict any use of the information to criminally investigate or prosecute any alcohol or drug abuse patient.[facility] HospitalIn the event this information is protected by the Federal Confidentiality of Alcohol and Drug Abuse Patient Records regulations: The Federal rules restrict any use of the information to criminally investigate or prosecute any alcohol or drug abuse patient.[facility] HospitalIn the event this information is protected by the Federal Confidentiality of Alcohol and Drug Abuse Patient Records regulations: The Federal rules restrict any use of the information to criminally investigate or prosecute any alcohol or drug abuse patient.[facility] HospitalIn the event this information is protected by the Federal Confidentiality of Alcohol and Drug Abuse Patient Records regulations: The Federal rules restrict any use of the information to criminally investigate or prosecute any alcohol or drug abuse patient.[facility] HospitalIn the event this information is protected by the Federal Confidentiality of Alcohol and Drug Abuse Patient Records regulations: The Federal rules restrict any use of the information to criminally investigate or prosecute any alcohol or drug abuse patient.[facility] HospitalIn the event this information is protected by the Federal Confidentiality of Alcohol and Drug Abuse Patient Records regulations: The Federal rules restrict any use of the information to criminally investigate or prosecute any alcohol or drug abuse patient.[facility] HospitalIn the event this information is protected by the Federal Confidentiality of Alcohol and Drug Abuse Patient Records regulations: The Federal rules restrict any use of the information to criminally investigate or prosecute any alcohol or drug abuse patient.[facility] HospitalIn the event this information is protected by the Federal Confidentiality of Alcohol and Drug Abuse Patient Records regulations: The Federal rules restrict any use of the information to criminally investigate or prosecute any alcohol or drug abuse patient.[facility] HospitalIn the event this information is protected by the Federal Confidentiality of Alcohol and Drug Abuse Patient Records regulations: The Federal rules restrict any use of the information to criminally investigate or prosecute any alcohol or drug abuse patient.[facility] HospitalIn the event this information is protected by the Federal Confidentiality of Alcohol and Drug Abuse Patient Records regulations: The Federal rules restrict any use of the information to criminally investigate or prosecute any alcohol or drug abuse patient.[facility] HospitalIn the event this information is protected by the Federal Confidentiality of Alcohol and Drug Abuse Patient Records regulations: The Federal rules restrict any use of the information to criminally investigate or prosecute any alcohol or drug abuse patient.[facility] HospitalIn the event this information is protected by the Federal Confidentiality of Alcohol and Drug Abuse Patient Records regulations: The Federal rules restrict any use of the information to criminally investigate or prosecute any alcohol or drug abuse patient.[facility] HospitalIn the event this information is protected by the Federal Confidentiality of Alcohol and Drug Abuse Patient Records regulations: The Federal rules restrict any use of the information to criminally investigate or prosecute any alcohol or drug abuse patient.[facility] HospitalIn the event this information is protected by the Federal Confidentiality of Alcohol and Drug Abuse Patient Records regulations: The Federal rules restrict any use of the information to criminally investigate or prosecute any alcohol or drug abuse patient.[facility] HospitalIn the event this information is protected by the Federal Confidentiality of Alcohol and Drug Abuse Patient Records regulations: The Federal rules restrict any use of the information to criminally investigate or prosecute any alcohol or drug abuse patient.[facility] HospitalIn the event this information is protected by the Federal Confidentiality of Alcohol and Drug Abuse Patient Records regulations: The Federal rules restrict any use of the information to criminally investigate or prosecute any alcohol or drug abuse patient.[facility] HospitalIn the event this information is protected by the Federal Confidentiality of Alcohol and Drug Abuse Patient Records regulations: The Federal rules restrict any use of the information to criminally investigate or prosecute any alcohol or drug abuse patient.[facility] HospitalIn the event this information is protected by the Federal Confidentiality of Alcohol and Drug Abuse Patient Records regulations: The Federal rules restrict any use of the information to criminally investigate or prosecute any alcohol or drug abuse patient.[facility] HospitalIn the event this information is protected by the Federal Confidentiality of Alcohol and Drug Abuse Patient Records regulations: The Federal rules restrict any use of the information to criminally investigate or prosecute any alcohol or drug abuse patient.[facility] HospitalIn the event this information is protected by the Federal Confidentiality of Alcohol and Drug Abuse Patient Records regulations: The Federal rules restrict any use of the information to criminally investigate or prosecute any alcohol or drug abuse patient.[facility] HospitalIn the event this information is protected by the Federal Confidentiality of Alcohol and Drug Abuse Patient Records regulations: The Federal rules restrict any use of the information to criminally investigate or prosecute any alcohol or drug abuse patient.[facility] HospitalIn the event this information is protected by the Federal Confidentiality of Alcohol and Drug Abuse Patient Records regulations: The Federal rules restrict any use of the information to criminally investigate or prosecute any alcohol or drug abuse patient.[facility] HospitalIn the event this information is protected by the Federal Confidentiality of Alcohol and Drug Abuse Patient Records regulations: The Federal rules restrict any use of the information to criminally investigate or prosecute any alcohol or drug abuse patient.[facility] HospitalIn the event this information is protected by the Federal Confidentiality of Alcohol and Drug Abuse Patient Records regulations: The Federal rules restrict any use of the information to criminally investigate or prosecute any alcohol or drug abuse patient.[facility] HospitalIn the event this information is protected by the Federal Confidentiality of Alcohol and Drug Abuse Patient Records regulations: The Federal rules restrict any use of the information to criminally investigate or prosecute any alcohol or drug abuse patient.[facility] HospitalIn the event this information is protected by the Federal Confidentiality of Alcohol and Drug Abuse Patient Records regulations: The Federal rules restrict any use of the information to criminally investigate or prosecute any alcohol or drug abuse patient.[facility] HospitalIn the event this information is protected by the Federal Confidentiality of Alcohol and Drug Abuse Patient Records regulations: The Federal rules restrict any use of the information to criminally investigate or prosecute any alcohol or drug abuse patient.[facility] HospitalIn the event this information is protected by the Federal Confidentiality of Alcohol and Drug Abuse Patient Records regulations: The Federal rules restrict any use of the information to criminally investigate or prosecute any alcohol or drug abuse patient.[facility] HospitalIn the event this information is protected by the Federal Confidentiality of Alcohol and Drug Abuse Patient Records regulations: The Federal rules restrict any use of the information to criminally investigate or prosecute any alcohol or drug abuse patient.[facility] Reason for Visit (unrecogniz ed section and content) Reason Onset Date Comments Refill Request 05/28/2021 Reason Onset Date Comments Community Monitoring Outreach 06/14/2021 [facility] [employer] program enrollment intro Reason Onset Date Comments Refill Request 11/16/2020 Refill Request 06/23/2021 Reason Onset Date Comments Refill Request 06/24/2021 Reason Onset Date Comments Population Health Navigation Outreach 07/15/2021 [employer] care gap Reason Onset Date Comments Refill Request 07/20/2021 Reason Onset Date Comments Refill Request 08/24/2021 Reason Onset Date Comments Refill Request 09/16/2021 Reason Onset Date Comments Population Health Navigation Outreach 09/23/2021 [place] Care Gap Reason Onset Date Comments Refill Request 10/15/2021 Reason Comments Physical Patient reports he w as in [facility] on 10/18/21 and was sent to ER for low SPO2 Reason Onset Date Comments Population Health Navigation Outreach 11/03/2021 [place] Attribution Reason Comments Results Reason Comments Patient [...] Follow-Up Specialty Diagnoses / Procedures Referred By Ade t Referred To Contact Cardiology Diagnoses Bicuspid aortic valve Procedures CONSULT TO CARDIOLOGY OFFICE/OUTPATIENT NEW HIGH [facility] 60-74 MINUTES Alyson Arthur MD [address] [place] [address] Referral ID Status Reason Start Date Expiration Date Visits Requested Visits Authorized [id number] Pending Review PCP Requested Referral 05/20/2022 05/20/2023 1 1 Reason Comments Diabetes Blood sugar: 162A1c: 7.4 Blurred Vision Both Eyes Difficulty Reading Both Eyes Specialty Diagnoses / Procedures Referred By Contkristopher t Referred To Contact Ophthalmology Diagnoses Type 2 diabetes mellitus with microalbuminuria, with long-term current use of insulin (HCC) Controlled type 2 diabetes mellitus with diabetic neuropathy, with long-term current use of insulin ([facility]) Procedures CONSULT TO OPHTHALMOLOGY OFFICE/OUTPATIENT [facility] 60-74 MINUTES Alyson Arthur MD [address] [place] [address] Referral ID Status Reason Start Date Expiration Date Visits Requested Visits Authorized [id number] Pending Review PCP Requested Referral 05/20/2022 05/20/2023 [...] a motorize d scooter to go to [facility] Reason Comments Follow Up Reason Comments Appointment Appointment Reason Comments Patient Update Reason Comments Insurance Authorization Reason Comments Insurance Authorization anahi Reason Comments Pharmacy Call Reason Comments Hospital Follow Up Reason Comments Consult Cutaneous abscess of right lower extremity Specialty Diagnoses / Procedures Referred By Ade kong Referred To Contact General Surgery Diagnoses Cutaneous abscess of right lower extremity Cellulitis of skin Procedures CONSULT TO GENERAL SURGERY OFFICE/OUTPATIENT [facility] 60-74 MINUTES Alyson Arthur MD [address] [place] [address] Referral ID Status Reason Start Date Expiration Date Visits Requested Visits Authorized [id number] Pending Review PCP Requested Referral 10/25/2022 10/25/2023 1 1 Reason Comments Patient Request/ CPAP Order Fax Reason Comments Orders Reason Comments Spirometry Specialty Diagnoses / Procedures Referred By Contac t Referred To Contact [facility] Diagnoses Encounter for preprocedural cardiovascular examination Sleep apnea, unspecified type Bicuspid aortic valve Nonrheumatic aortic valve stenosis Preoperative testing Procedures LUNG DIFFUSION CAPACITY (DLCO) DIFFUSING CAPACITY Leandro Foster, TECHNICAL ACCOUNT REPRESENTATIVE.GUEST HISTORY CLERK [address] [place] [address] [place] [address] Referral ID Status Reason Start Date Expiration Date V isits Requested Visits Authorized [id number] Closed Auto-Generate d Referral OON/Self Pay Override 11/08/2022 12/08/2023 1 1 Specialty Diagnoses / Procedures Referred By Contac t Referred To Contact [facility] Diagnoses Encounter for preprocedural cardiovascular examination Sleep apnea, unspecified type Bicuspid aortic valve Nonrheumatic aortic valve stenosis Preoperative testing Procedures LUNG VOLUMES Leandro Foster TECHNICAL ACCOUNT REPRESENTATIVE.GUEST HISTORY CLERK [address] [place] [address] [place] [address] Referral ID Status Reason Start Date Expiration Date V isits Requested Visits Authorized [id number] Closed Auto-Generate d Referral OON/Self Pay Override 11/09/2022 02/12/2023 1 1 Specialty Diagnoses / Procedures Referred By Contac t Referred To Contact [facility] Diagnoses Encounter for preprocedural cardiovascular examination Sleep apnea, unspecified type Bicuspid aortic valve Nonrheumatic aortic valve stenosis Preoperative testing Procedures SPIROMETRY BASELINE ONLY SPMTRY W/VC EXPIRATORY JUAN W/WO MXML VOL VNTJ Leandro Foster, TECHNICAL ACCOUNT REPRESENTATIVE.GUEST HISTORY CLERK [address] [place] [address] [place] [address] Referral ID Status Reason Start Date Expiration Date V isits Requested Visits Authorized [id number] Closed Auto-Generate d Referral OON/Self Pay Override 11/08/2022 12/08/2023 1 1 Reason Onset Date Comments Refill Request 11/21/2022 Specialty Diagnoses / Procedures Referred By Contac t Referred To Contact CT IM[facility] Diagnoses Encounter for preprocedural cardiovascular examination Sleep apnea, unspecified type Bicuspid aortic valve Nonrheumatic aortic valve stenosis Preoperative testing Procedures CTA ABD/PEL W IVCON CT ANGIO ABD&PLVIS CNTRST MTRL W/WO CNTRST Leandro Jesus, TECHNICAL ACCOUNT REPRESENTATIVE.GUEST HISTORY CLERK [address] [place] [address] [place] [address] Referral ID Status Reason Start Date Expiration Date V isits Requested Visits Authorized [id number] Closed Auto-Generate d Referral 11/08/2022 12/08/2023 1 [...] PODIATRY OFFICE/OUTPATIENT NEW HIGH MDM 60-74 MINUTES Pascual Bacon MD [address] [place] [address] Referral ID Status Reason Start Date Expiration Date Visits Requested Visits Authorized [id number] Pending Review PCP Requested Referral 11/30/2023 1 [...] DOSE LNG CA SCR Nathen- Amauri Jo, TECHNICAL ACCOUNT REPRESENTATIVE.GUEST HISTORY CLERK [address] [place] [address] [place] [address] Referral ID Status Reason Start Date Expiration Date V isits Requested Visits Authorized [id number] Closed Auto-Generate d Referral 06/28/2022 07/28/2023 1 1 Reason Comments Valvular Heart Disease Kiel is here t o review testing Reason Comments Orders Reason Comments multidisciplinary heart team meeting Reason Onset Date Comments Refill Request 12/29/2022 Reason Onset Date Comments Refill Request 01/09/2023 Reason Onset Date Comments Refill Request 01/27/2023 Reason Comments Pre-Op Exam Specialty Diagnoses / Procedures Referred By Contac t Referred To Contact Cardiac Surg Diagnoses Controlled type 2 diabetes mellitus without complication, unspecified whether jail insulin use (HCC) Pre-operative cardiovascular examination Aortic valve disorder 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 60 MINUTES Shlomo Alcocer MD [address] [place] [id number] Referral ID Status Reason Start Date Expiration Date V isits Requested Visits Authorized [id number] Closed PCP Requested Referral 03/02/2023 03/01/2024 1 1 Reason Comments Patient Education Specialty Diagnoses / Procedures Referred By Contac t Referred To Contact Cardiac Surg Diagnoses Controlled type 2 diabetes mellitus without complication, unspecified whether jail insulin use (HCC) Pre-operative cardiovascular examination Aortic valve disorder 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 60 MINUTES Shlomo Alcocer MD [address] [facility] [address] [id number] Referral ID Status Reason Start Date Expiration Date V isits Requested Visits Authorized [id number] Closed PCP Requested Referral 03/02/2023 03/01/2024 1 1 Reason Comments Request for discharge instructions from [facility] Main [place] on Reason Comments Appointment Reason Comments requesting hospital bed/medication probl ems Reason Comments Home Health Orders Reason Comments Hospital F/U Reason Comments results Reason Onset Date Comments Refill Request 05/24/2023 Reason Comments Abdominal Pain Reason Onset Date Comments Prescription Request 05/25/2023 Reason Comments OT Start of Care Update Reason Comments Wrist Pain right x 3 days, bent back Reason Comments Occupational therapy orders Reason Comments Insurance Authorization Eliquis Reason Comments PT plan of care Reason Comments Patient Update Medication Request Reason Onset Date Comments Refill Request 06/26/2023 Specialty Diagnoses / Procedures [facility] To [facility] Diagnoses 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) Procedures CTA CHEST (GATED) W IVCON CT ANGIOGRAPHY CHEST W/CONTRAST/NONCONTRAST Elma Hester APRN.GUEST HISTORY CLERK [address] [place] [address] [facility] [place] [address] Referral ID Status Reason Start Date Expiration Date V isits Requested Visits Authorized [id number] Closed Auto-Generate d Referral 03/28/2023 04/26/2024 1 1 Reason Comments FYI-PT Home Health Update Reason Comments Home Health Update Reason Comments OT requesting verbal order Reason Comments FYI-PT plan of care Reason Comments New Patient New Patient Evaluation Reason Comments Hospital Follow Up Reason Comments Home Health Point of Care Results Reason Onset Date Comments Refill Request 07/25/2023 Reason Comments [facility] PT- discharged pt today Reason Onset Date Comments Refill Request 08/07/2023 Reason Comments Orders Reason Comments Request for order for adult pull ups Reason Comments Nurse Triage Call Reason Comments elevated blood sugar Reason Onset Date Comments Refill Request 10/09/2023 Reason Onset Date Comments Refill Request 10/19/2023 Reason Onset Date Comments Refill Request 10/25/2023 Reason Onset Date Comments ACM MIGUELITO RN 10/27/2023 ED utilizatio n review per request of payer Specialty Diagnoses / Procedures [facility]erred [facility] Referred To Contact [facility]IC[facility] Diagnoses xray Procedures XRAY EXAM OF RIBS/CHEST TC Alyson Arthur MD [address] [place] [address] [facility] [address] [place] [address] Referral ID Status Reason Start Date Expiration Date V isits Requested Visits Authorized [id number] Closed OON/Self Pay Override 10/25/2022 04/23/2023 1 1 Reason Comments Blood Sugar Readings Reason Onset Date Comments Refill Request 11/10/2023 Reason Comments Calling in Blood Sugars Reason Comments Medication Request Reason Onset Date Comments Refill Request 12/07/2023 Reason Comments Orders Hospital bed Reason Onset Date Comments Refill Request 01/09/2024 Medication Problem 01/09/2024 Reason Comments problem getting to appt tomorrow Reason Comments Follow Up Reason Onset Date Comments Population Health Navigation Outreach 03/04/2024 [employer] jo[place]quin Reason Onset Date Comments Refill Request 03/28/2024 Reason Onset Date Comments Population Health Navigation Outreach 04/03/2024 [employer] jo[place]quin Reason Onset Date Comments Population Health Navigation Outreach 05/03/2024 [employer] [place] Reason Onset Date Comments Refill Request 05/14/2024 Reason Onset Date Comments Care Coordination 05/21/2024 Referred to [facility] for Diabetes Management Reason Onset Date Comments Population Health Navigation Outreach 06/03/2024 [employer] [place] Reason Onset Date Comments Refill Request 06/21/2024 Reason Onset Date Comments Population Health Navigation Outreach 08/02/2024 [employer] [place] Reason Comments Recheck Medication follow up Reason Onset Date Comments Refill Request 08/19/2024 Reason Onset Date Comments Refill Request 08/22/2024 Reason Onset Date Comments Population Health Navigation Outreach 09/03/2024 [employer] [place] Specialty Diagnoses / Procedures Referred By Ade t Referred To Contact CT [facility] Diagnoses Cigarette smoker Procedures CT LUNG SCREEN WO IVCON COMPUTED TOMOGRAPHY THORAX LW DOSE LNG CA Tony Arroyo, TECHNICAL ACCOUNT REPRESENTATIVE.GUEST HISTORY CLERK [address] [place] [address] Phone: tel: fax: [facility] [place] [address] Referral ID Status Reason Start Date Expiration Date V isits Requested Visits Authorized [id number] Closed Auto-Generate d Referral 04/04/2024 05/04/2025 1 [address] Specialty Diagnoses / Procedures Referred By Contac t Referred To Contact CT IM[facility] Diagnoses Cigarette smoker Procedures CT LUNG SCREEN WO IVCON COMPUTED TOMOGRAPHY THORAX LW DOSE LNG CA Tony Arroyo, TECHNICAL ACCOUNT REPRESENTATIVE.GUEST HISTORY CLERK [address] [place] [address] Phone: tel: fax: [facility] [place] [address] Referral ID Status Reason Start Date Expiration Date V isits Requested Visits Authorized [id number] Closed Auto-Generate d Referral 04/04/2024 05/04/2025 1 1 Reason Onset Date Comments Refill Request 09/13/2024 Reason Comments Appointment Needs testing Reason Onset Date Comments Population Health Navigation Outreach 10/03/2024 [facility] Care Teams (unrecognized sec tion and content) Rn Rehabilitation Relationship Specialty Start Date End Date Alyson Arthur MD [address] [facility], [place] [address] PCP - General Family Practice 11/09/12 Rn Rehabilitation Relationship Specialty Start Date End Date Alyson Arthur MD [address] [facility] [place] [address] PCP - General Family Practice 11/09/12 Rn Rehabilitation Relationship Specialty Start Date End Date Alyson Arthur MD [address] [facility] [place] [address] PCP - General Family Practice 11/09/12 Rn Rehabilitation Relationship Specialty Start Date End Date Alyson Arthur MD [address] [facility], [place] [address] PCP - General Family Practice 11/09/12 Rn Rehabilitation Relationship Specialty Start Date End Date Alyson Arthur MD [address] [place] [place] [address] PCP - General Family Practice 11/09/12 Rn Rehabilitation Relationship Specialty Start Date End Date Alyson Arthur MD [address] [place] [place] [address] PCP - General Family Practice 11/09/12 Rn Rehabilitation Relationship Specialty Start Date End Date Alyson Arthur MD [address] [place] [place] [address] PCP - General Family Practice 11/09/12 Rn Rehabilitation Relationship Specialty Start Date End Date Alyson Arthur MD [address] [place] [place] [address] PCP - General Family Practice 11/09/12 Rn Rehabilitation Relationship Specialty Start Date End Date Alyson Arthur MD [address] [place] [place] [address] PCP - General Family Practice 11/09/12 Rn Rehabilitation Relationship Specialty Start Date End Date Alyson Arthur MD [address] [place] [place] [address] PCP - General Family Medicine 11/09/12 Rn Rehabilitation Relationship Specialty Start Date End Date Alyson Arthur MD [address] [place] [place] [address] PCP - General Family Medicine 11/09/12 Rn Rehabilitation Relationship Specialty Start Date End Date Alyson Arthur MD [address] [place] [place] [address] PCP - General Family Medicine 11/09/12 Rn Rehabilitation Relationship Specialty Start Date End Date Alyson Arthur MD [address] [place] [place] [address] PCP - General Family Medicine 11/09/12 Rn Rehabilitation Relationship Specialty Start Date End Date Alyson Arthur MD [address] [place] [place] [address] PCP - General Family Medicine 11/09/12 Rn Rehabilitation Relationship Specialty Start Date End Date Alyson Arthur MD [address] [place] [place] [address] PCP - General Family Medicine 11/09/12 Rn Rehabilitation Relationship Specialty Start Date End Date Alyson Arthur MD [address] [place] [place] [address] PCP - General Family Medicine 11/09/12 Team Status: Active Member Role Status Dates Dr. Alyson Arthur MD Family Provider Active Alyson Arthur Primary Care Provider Active Team Status: Inactive Member Role Status Dates Alyson Arthur Primary Care Provider Active Dr. Walter Sellers MD Attending Provider Active Rn Rehabilitation Relationship Specialty Start Date End Date Alyson Arthur MD [address] [place] [place] [address] PCP - General Family Medicine 11/09/12 Rn Rehabilitation Relationship Specialty Start Date End Date Alyson Arthur MD [address] [place] [place] [address] PCP - General Family Medicine 11/09/12 Rn Rehabilitation Relationship Specialty Start Date End Date Alyson Arthur MD [address] [place] [address] PCP - General Family Medicine 11/09/12 Rn Rehabilitation Relationship Specialty Start Date End Date Alyson Arthur MD [address] [place] [address] PCP - General Family Medicine 11/09/12 Rn Rehabilitation Relationship Specialty Start Date End Date Alyson Arthur MD [address] [place] [place] [address] PCP - General Family Medicine 11/09/12 Rn Rehabilitation Relationship Specialty Start Date End Date Alyson Arthur MD [address] [place] [address] PCP - General Family Medicine 11/09/12 Rn Rehabilitation Relationship Specialty Start Date End Date Alyson Arthur MD [address] [place] [address] PCP - General Family Medicine 11/09/12 Rn Rehabilitation Relationship Specialty Start Date End Date Alyson Arthur MD [address] [place] [address] PCP - General Family Medicine 11/09/12 Rn Rehabilitation Relationship Specialty Start Date End Date Alyson Arthur MD [address] [place] [address] PCP - General Family Medicine 11/09/12 Rn Rehabilitation Relationship Specialty Start Date End Date Alyson Arthur MD [address] [place] [address] PCP - General Family Medicine 11/09/12 Rn Rehabilitation Relationship Specialty Start Date End Date Alyson Arthur MD [address] [place] [address] PCP - General Family Medicine 11/09/12 Team Status: Active Member Role Status Dates Dr. Alyson Arthur MD Family Provider Active Dr. Alyson Arthur MD Primary Care Provider Active Team Status: Inactive Member Role Status Dates Alyson TEJEDA Primary Care Provider Active Dr. Walter Sellers MD Attending Provider, Referring Pr ovider Active Team Status: Inactive Member Role Status Jabier Blancas MD Emergency Provider Active Dr. Alyson Arthur MD Primary Care Provider Active Rn Rehabilitation Relationship Specialty Start Date End Date Alyson Arthur MD [address] [place] [address] PCP - General Family Medicine 11/09/12 Rn Rehabilitation Relationship Specialty Start Date End Date Alyson Arthur MD [address] [place] [address] PCP - General Family Medicine 11/09/12 Rn Rehabilitation Relationship Specialty Start Date End Date Alyson Arthur MD [address] [place] [address] PCP - General Family Medicine 11/09/12 Rn Rehabilitation Relationship Specialty Start Date End Date Alyson Arthur MD [address] [place] [address] PCP - General Family Medicine 11/09/12 Rn Rehabilitation Relationship Specialty Start Date End Date Alyson Arthur MD [address] [place], [place] 052921 PCP - General Family Medicine 11/09/12 Team Status: Inactive Member Role Status Dates Jabier Blancas MD Attending Provider, Emergency Provid er Active Dr. Alyson Arthur MD Primary Care Provider Active Team Status: Active Member Role Status Dates Dr. Alyson Arthur MD Primary Care Provider Active Dr. Juaquin Spear MD Emergency Provider Active Dr. Shanna Govea MD Admit Provider, Attending Prov ider Active Team Status: Active Member Role Status Dates Dr. Alyson Arthur MD Primary Care Provider Active Dr. Bruce Mc MD Attending Provider Activ e Team Status: Active Member Role Status Dates Dr. Alyson Arthur MD Primary Care Provider Active Dr. Juaquin Spear MD Emergency Provider Active Dr. Shanna Govea MD Admit Provider, Attending Provider, Other Provider Active Team Status: Inactive Member Role Status Dates Dr. Alyson Arthur MD Primary Care Provider Active Dr. Juaquin Spear MD Emergency Provider Active Dr. Shanna Govea MD Admit Provider, Attending Prov ider Active Rn Rehabilitation Relationship Specialty Start Date End Date Alyson Arthur MD [address] [place], [place] 181741 PCP - General Family Medicine 11/09/12 Rn Rehabilitation Relationship Specialty Start Date End Date Alyson Arthur MD [address] [place], [place] 380811 PCP - General Family Medicine 11/09/12 Rn Rehabilitation Relationship Specialty Start Date End Date Alyson Arthur MD [address] [place], [place] [id number] PCP - General Family Medicine 11/09/12 Rn Rehabilitation Relationship Specialty Start Date End Date Alyson Arthur MD [address] [place], [place] [id number] PCP - General Family Medicine 11/09/12 Rn Rehabilitation Relationship Specialty Start Date End Date Alyson Arthur MD [address] [place] [address] PCP - General Family Medicine 11/09/12 Rn Rehabilitation Relationship Specialty Start Date End Date Alyson Arthur MD [address] [place] [address] PCP - General Family Medicine 11/09/12 Rn Rehabilitation Relationship Specialty Start Date End Date Alyson Arthur MD [address] [place] [address] PCP - General Family Medicine 11/09/12 Rn Rehabilitation Relationship Specialty Start Date End Date Alyson Arthur MD [address] [place] [address] PCP - General Family Medicine 11/09/12 Rn Rehabilitation Relationship Specialty Start Date End Date Alyson Arthur MD [address] [place] [address] PCP - General Family Medicine 11/09/12 Rn Rehabilitation Relationship Specialty Start Date End Date Alyson Arthur MD [address] [place] [address] PCP - General Family Medicine 11/09/12 Rn Rehabilitation Relationship Specialty Start Date End Date Alyson Arthur MD [address] [place] [address] PCP - General Family Medicine 11/09/12 Rn Rehabilitation Relationship Specialty Start Date End Date Alyson Arthur MD [address] [place] [address] PCP - General Family Medicine 11/09/12 Rn Rehabilitation Relationship Specialty Start Date End Date Alyson Arthur MD [address] [place] [address] PCP - General Family Medicine 11/09/12 Rn Rehabilitation Relationship Specialty Start Date End Date Alyson Arthur MD [address] [place], [place] 940971 PCP - General Family Medicine 11/09/12 Rn Rehabilitation Relationship Specialty Start Date End Date Alyson Arthur MD [address] [place] [address] PCP - General Family Medicine 11/09/12 Rn Rehabilitation Relationship Specialty Start Date End Date Alyson Arthur MD [address] [place] [address] PCP - General Family Medicine 11/09/12 Rn Rehabilitation Relationship Specialty Start Date End Date Alyson Arthur MD [address] [place] [address] PCP - General Family Medicine 11/09/12 Rn Rehabilitation Relationship Specialty Start Date End Date Alyson Arthur MD [address] [place] [address] PCP - General Family Medicine 11/09/12 Shlomo Alcocer MD [address] [place] [address] Surgeon Cardiac Surg 02/20/23 Benjamin Pike MD [address] [place] [address] Referring Cardiovascular Surgery 02/20/23 Kiel Barnes MD [address] [place] [address] Primary Staff Physician Cardiology 03/15/23 Rn Rehabilitation Relationship Specialty Start Date End Date Alyson Arthur MD [address] [place], [place] 751221 PCP - General Family Medicine 11/09/12 Shlomo Alcocer MD [address] [facility] [place] [address] Surgeon Cardiac Surg 02/20/23 Benjamin Pike MD [address] [place] [address] Referring Cardiovascular Surgery 02/20/23 Kiel Barnes MD [address] [place] [address] Primary Staff Physician Cardiology 03/15/23 Rn Rehabilitation Relationship Specialty Start Date End Date Alyson Arthur MD [address] [place] [address] PCP - General Family Medicine 11/09/12 Shlomo Alcocer MD [address] [place] [address] Surgeon Cardiac Surg 02/20/23 Benjamin Pike MD [address] [place], [place] [phone] Referring Cardiovascular Surgery 02/20/23 Kiel Barnes MD [address] [place], [place] 0260295 Primary Staff Physician Cardiology 03/15/23 Rn Rehabilitation Relationship Specialty Start Date End Date Alyson Arthur MD [address] [place], [place] 360481 PCP - General Family Medicine 11/09/12 Shlomo Alcocer MD [address] [place] [address] Surgeon Cardiac Surg 02/20/23 Benjamin Pike MD [address] [place], [place] [phone] Referring Cardiovascular Surgery 02/20/23 Kiel Barnes MD [address] [place] [address] Primary Staff Physician Cardiology 03/15/23 Rn Rehabilitation Relationship Specialty Start Date End Date Alyson Arthur MD [address] [place] [address] PCP - General Family Medicine 11/09/12 Shlomo Alcocer MD [address] [place] [address] Surgeon Cardiac Surg 02/20/23 Benjamin Pike MD [address] [place], [place] [phone] Referring Cardiovascular Surgery 02/20/23 Kiel Barnes MD [address] [place], [place] 6770095 Primary Staff Physician Cardiology 03/15/23 Rn Rehabilitation Relationship Specialty Start Date End Date Alyson Arthur MD [address] [place], [place] 665301 PCP - General Family Medicine 11/09/12 Shlomo Alcocer MD [address] [place] [address] Surgeon Cardiac Surg 02/20/23 Benjamin Pike MD [address] [place], [place] [phone] Referring Cardiovascular Surgery 02/20/23 Kiel Barnes MD [address] [place] 7976395 Primary Staff Physician Cardiology 03/15/23 Rn Rehabilitation Relationship Specialty Start Date End Date Alyson Arthur MD [address] [place] [address] PCP - General Family Medicine 11/09/12 Shlomo Alcocer MD [address] [place] [address] Surgeon Cardiac Surg 02/20/23 Benjamin Pike MD [address] [place] [address] Referring Cardiovascular Surgery 02/20/23 Kiel Barnes MD [address] [place] [address] Primary Staff Physician Cardiology 03/15/23 Rn Rehabilitation Relationship Specialty Start Date End Date Alyson Arthur MD [address] [place] [address] PCP - General Family Medicine 11/09/12 Shlomo Alcocer MD [address] [facility] [place] [address] Surgeon Cardiac Surg 02/20/23 Benjamin Pike MD [address] [place] [address] Referring Cardiovascular Surgery 02/20/23 Kiel Barnes MD [address] [place], [place] [phone] Primary Staff Physician Cardiology 03/15/23 Rn Rehabilitation Relationship Specialty Start Date End Date Alyson Arthur MD [address] [place] [address] PCP - General Family Medicine 11/09/12 Shlomo Alcocer MD [address] [place] [address] Surgeon Cardiac Surg 02/20/23 Benjamin Pike MD [address] [place] [address] Referring Cardiovascular Surgery 02/20/23 Kiel Barnes MD [address] [place], [place] 2412795 Primary Staff Physician Cardiology 03/15/23 Rn Rehabilitation Relationship Specialty Start Date End Date Alyson Arthur MD [address] [place], [place] 054021 PCP - General Family Medicine 11/09/12 Shlomo Alcocer MD [address] [place], [place] 4351895 Surgeon Cardiac Surg 02/20/23 Benjamin Pike MD [address] [facility] [place], [place] [phone] Referring Cardiovascular Surgery 02/20/23 Kiel Barnes MD [address] [place] [address] Primary Staff Physician Cardiology 03/15/23 Rn Rehabilitation Relationship Specialty Start Date End Date Alyson Arthur MD [address] [place] [address] PCP - General Family Medicine 11/09/12 Shlomo Alcocer MD [address] [place] [address] Surgeon Cardiac Surg 02/20/23 Benjamin Pike MD [address] [facility] [place] [address] Referring Cardiovascular Surgery 02/20/23 Kiel Barnes MD [address] [place] [address] Primary Staff Physician Cardiology 03/15/23 Rn Rehabilitation Relationship Specialty Start Date End Date Alyson Arthur MD [facility] [place] [address] PCP - General Family Medicine 11/09/12 Shlomo Alcocer MD [address] [facility] [place], [place] 6704[address] Surgeon Cardiac Surg 02/20/23 Benjamin Pike MD [address] [facility] [address] [place], [place] [phone] Referring Cardiovascular Surgery 02/20/23 Kiel Barnes MD [address] [place], [place] 1524695 Primary Staff Physician Cardiology 03/15/23 Rn Rehabilitation Relationship Specialty Start Date End Date Alyson Arthur MD [address] [place], [place] 920361 PCP - General Family Medicine 11/09/12 Shlomo Alcocer MD [address] [place], [place] 979[address] Surgeon Cardiac Surg 02/20/23 Benjamin Pike MD [address] [facility] [place] [address] Referring Cardiovascular Surgery 02/20/23 Kiel Barnes MD [address] [place], [place] [phone] Primary Staff Physician Cardiology 03/15/23 Rn Rehabilitation Relationship Specialty Start Date End Date Alyson Arthur MD [address] [place] [address] PCP - General Family Medicine 11/09/12 Shlomo Alcocer MD [address] [place] [address] Surgeon Cardiac Surg 02/20/23 Benjamin Pike MD [address] [place] [address] Referring Cardiovascular Surgery 02/20/23 Kiel Barnes MD [address] [place] [address] Primary Staff Physician Cardiology 03/15/23 Rn Rehabilitation Relationship Specialty Start Date End Date Alyson Arthur MD [address] [place] [address] PCP - General Family Medicine 11/09/12 Shlomo Alcocer MD [address] [place] [address] Surgeon Cardiac Surg 02/20/23 Benjamin Pike MD [address] [place] [address] Referring Cardiovascular Surgery 02/20/23 Kiel Barnes MD [address] [place] [address] Primary Staff Physician Cardiology 03/15/23 Rn Rehabilitation Relationship Specialty Start Date End Date Alyson Arthur MD [address] [place] [address] PCP - General Family Medicine 11/09/12 Shlomo Alcocer MD [address] [place] [address] Surgeon Cardiac Surg 02/20/23 Benjamin Pike MD [address] [place], [place] [phone] Referring Cardiovascular Surgery 02/20/23 Kiel Barnes MD [address] [place], [place] 2828895 Primary Staff Physician Cardiology 03/15/23 Rn Rehabilitation Relationship Specialty Start Date End Date Alyson Arthur MD [address] [place], [place] 644351 PCP - General Family Medicine 11/09/12 Shlomo Alcocer MD [address] [place], [place] 17[address] Surgeon Cardiac Surg 02/20/23 Benjamin Pike MD [address] [place], [place] [phone] Referring Cardiovascular Surgery 02/20/23 Kiel Barnes MD [address] [place] [address] Primary Staff Physician Cardiology 03/15/23 Rn Rehabilitation Relationship Specialty Start Date End Date Alyson Arthur MD [address] [place] [address] PCP - General Family Medicine 11/09/12 Shlomo Alcocer MD [address] [place] [address] Surgeon Cardiac Surg 02/20/23 Benjamin Pike MD [address] [place], [place] [phone] Referring Cardiovascular Surgery 02/20/23 Kiel Barnes MD [address] [place], [place] 3766195 Primary Staff Physician Cardiology 03/15/23 Rn Rehabilitation Relationship Specialty Start Date End Date Alyson Arthur MD [address] [place], [place] 405131 PCP - General Family Medicine 11/09/12 Shlomo Alcocer MD [address] [place] [address] Surgeon Cardiac Surg 02/20/23 Benjamin Pike MD [address] [place], [place] [phone] Referring Cardiovascular Surgery 02/20/23 Kiel Barnes MD [address] [place], [place] 64[address] Primary Staff Physician Cardiology 03/15/23 Rn Rehabilitation Relationship Specialty Start Date End Date Alyson Arthur MD [address] [place] [address] PCP - General Family Medicine 11/09/12 Shlomo Alcocer MD [address] [place] [address] Surgeon Cardiac Surg 02/20/23 Benjamin Pike MD [address] [facility] [place], [place] [phone] Referring Cardiovascular Surgery 02/20/23 Kiel Barnes MD [address] [place] 3317195 Primary Staff Physician Cardiology 03/15/23 Rn Rehabilitation Relationship Specialty Start Date End Date Alyson Arthur MD [address] [place] [address] PCP - General Family Medicine 11/09/12 Shlomo Alcocer MD [address] [place] [address] Surgeon Cardiac Surg 02/20/23 Benjamin Pike MD [address] [facility] [place] [address] Referring Cardiovascular Surgery 02/20/23 Kiel Barnes MD [address] [place] [address] Primary Staff Physician Cardiology 03/15/23 Team Status: Active Member Role Status Dates Dr. Alyson Arthur MD Primary Care Provider Active Dr. Carmen Matthews MD Emergency Provider Active Dr. Raj Stevenson MD Attending Provider Active Team Status: Inactive Member Role Status Dates Dr. Alyson Arthur MD Primary Care Provider Active Dr. Walter Sellers MD Attending Provider, Referring Pr ovider Active Team Status: Active Member Role Status Dates Dr. Alyson Arthur MD Primary Care Provider Active Dr. Carmen Matthews MD Emergency Provider Active Dr. Patrick Sharma , Admit Provi kaveh, Attending Provider, Referring Provider Active Rn Rehabilitation Relationship Specialty Start Date End Date Alyson Arthur MD [address] [place] [address] PCP - General Family Medicine 11/09/12 Shlomo Alcocer MD [address] [place] [address] Surgeon Cardiac Surg 02/20/23 Benjamin Pike MD [address] [facility] [place] [address] Referring Cardiovascular Surgery 02/20/23 Kiel Barnes MD [address] [place] [address] Primary Staff Physician Cardiology 03/15/23 Team Status: Active Member Role Status Dates Dr. Alyson Arthur MD Primary Care Provider Active Dr. Carmen Matthews MD Emergency Provider Active Dr. Patrick Sharma , DO Admit Provi kaveh, Referring Provider, Other Provider Active Dr. Trip Fraire DO Other Provider Active Dr. Madhu Smith MD Other Provider Active Dr. Raj Stevenson MD Attending Provider Active Team Status: Active Member Role Status Dates Dr. Alyson Arthur MD Primary Care Provider Active Dr. Carmen Matthews MD Emergency Provider Active Dr. Patrick Sharma , DO Admit Provi kaveh, Referring Provider, Other Provider Active Dr. Trip Fraire DO Attending Provider, Other Provid er Active Dr. Raj Stevenson MD Other Provider Active Team Status: Active Member Role Status Dates Dr. Alyson Arthur MD Primary Care Provider Active Dr. Carmen Matthews MD Emergency Provider Active Dr. Patrick Sharma , DO Admit Provi kaveh, Referring Provider, Other Provider Active Dr. Trip Fraire DO Other Provider Active Dr. Raj Stevenson MD Other Provider Active Dr. Kiel Chacon MD Attending Provider Active Team Status: Inactive Member Role Status Dates Dr. Alyson Arthur MD Primary Care Provider Active Dr. Carmen Matthews MD Emergency Provider Active Dr. Patrick Sharma , DO Admit Provi kaveh, Referring Provider, Other Provider Active Dr. Trip Fraire DO Attending Provider Active Dr. Raj Stevenson MD Other Provider Active Rn Rehabilitation Relationship Specialty Start Date End Date Alyson Arthur MD [address] [place] [address] PCP - General Family Medicine 11/09/12 Shlomo Alcocer MD [address] [facility] [place] [address] Surgeon Cardiac Surg 02/20/23 Benjamin Pike MD [address] [facility] [place], [place] [phone] Referring Cardiovascular Surgery 02/20/23 Kiel Barnes MD [address] [place], [place] 5628595 Primary Staff Physician Cardiology 03/15/23 Rn Rehabilitation Relationship Specialty Start Date End Date Alyson Arthur MD [address] [place], [place] [id number] PCP - General Family Medicine 11/09/12 Shlomo Alcocer MD [address] [place], [place] 5095895 Surgeon Cardiac Surg 02/20/23 Benjamin Pike MD [address] [facility] [place], [place] [phone] Referring Cardiovascular Surgery 02/20/23 Kiel Barnes MD [address] [place] 8765195 Primary Staff Physician Cardiology 03/15/23 Rn Rehabilitation Relationship Specialty Start Date End Date Alyson Arthur MD [address] [place] [address] PCP - General Family Medicine 11/09/12 Shlomo Alcocer MD [address] [place] [address] Surgeon Cardiac Surg 02/20/23 Benjamin Pike MD [address] [place], [place] [phone] Referring Cardiovascular Surgery 02/20/23 Kiel Barnes MD [address] [place], [place] 7023495 Primary Staff Physician Cardiology 03/15/23 Rn Rehabilitation Relationship Specialty Start Date End Date Alyson Arthur MD [address] [place], [place] 398111 PCP - General Family Medicine 11/09/12 Shlomo Alcocer MD [address] [place], [place] 5281695 Surgeon Cardiac Surg 02/20/23 Benjamin Pike MD [address] [facility] [place], [place] [phone] Referring Cardiovascular Surgery 02/20/23 Kiel Barnes MD [address] [place], [place] 1664495 Primary Staff Physician Cardiology 03/15/23 Rn Rehabilitation Relationship Specialty Start Date End Date Alyson Arthur MD [address] [place] [address] PCP - General Family Medicine 11/09/12 Shlomo Alcocer MD [address] [place], [place] 1939195 Surgeon Cardiac Surg 02/20/23 Benjamin Pike MD [address] [place], [place] [phone] Referring Cardiovascular Surgery 02/20/23 Kiel Barnes MD [address] [place] [address] Primary Staff Physician Cardiology 03/15/23 Rn Rehabilitation Relationship Specialty Start Date End Date Alyson Arthur MD [address] [place] [address] PCP - General Family Medicine 11/09/12 Shlomo Alcocer MD [address] [place] [address] Surgeon Cardiac Surg 02/20/23 Benjamin Pike MD [address] [facility] [place], [place] [phone] Referring Cardiovascular Surgery 02/20/23 Kiel Barnes MD [address] [place] [address] Primary Staff Physician Cardiology 03/15/23 Rn Rehabilitation Relationship Specialty Start Date End Date Alyson Arthur MD [address] [place] [address] PCP - General Family Medicine 11/09/12 Shlomo Alcocer MD [address] [place] [address] Surgeon Cardiac Surg 02/20/23 Benjamin Pike MD [address] [facility] [place], [place] [phone] Referring Cardiovascular Surgery 02/20/23 Kiel Barnes MD [address] [place], [place] 2759695 Primary Staff Physician Cardiology 03/15/23 Rn Rehabilitation Relationship Specialty Start Date End Date Alyson Arthur MD [address] [place], [place] 114791 PCP - General Family Medicine 11/09/12 Shlomo Alcocer MD [address] [place], [place] 26[address] Surgeon Cardiac Surg 02/20/23 Benjamin Pike MD [address] [place], [place] [phone] Referring Cardiovascular Surgery 02/20/23 Kiel Barnes MD [address] [place], [place] 1625895 Primary Staff Physician Cardiology 03/15/23 Rn Rehabilitation Relationship Specialty Start Date End Date Alyson Arthur MD [address] [place], [place] 182181 PCP - General Family Medicine 11/09/12 Shlomo Alcocer MD [address] [place], [place] 6[address] Surgeon Cardiac Surg 02/20/23 Benjamin Pike MD [address] [place], [place] [phone] Referring Cardiovascular Surgery 02/20/23 Kiel Barnes MD [address] [place], [place] 7083495 Primary Staff Physician Cardiology 03/15/23 Rn Rehabilitation Relationship Specialty Start Date End Date Alyson Arthur MD [address] [place] [address] PCP - General Family Medicine 11/09/12 Shlomo Alcocer MD [address] [place] [address] Surgeon Cardiac Surg 02/20/23 Benjamin Pike MD [address] [place], [place] [phone] Referring Cardiovascular Surgery 02/20/23 Kiel Barnes MD [address] [place], [place] 8703395 Primary Staff Physician Cardiology 03/15/23 Rn Rehabilitation Relationship Specialty Start Date End Date Alyson Arthur MD [address] [place] [address] PCP - General Family Medicine 11/09/12 Shlomo Alcocer MD [address] [place] [address] Surgeon Cardiac Surg 02/20/23 Benjamin Pike MD [address] [place] [address] Referring Cardiovascular Surgery 02/20/23 Kiel Barnes MD [address] [place], [place] 8305095 Primary Staff Physician Cardiology 03/15/23 Rn Rehabilitation Relationship Specialty Start Date End Date Alyson Arthur MD [address] [place], [place] 954851 PCP - General Family Medicine 11/09/12 Shlomo Alcocer MD [address] [place] [address] Surgeon Cardiac Surg 02/20/23 Benjamin Pike MD [address] [facility] [place] [address] Referring Cardiovascular Surgery 02/20/23 Kiel Barnes MD [address] [place] [address] Primary Staff Physician Cardiology 03/15/23 Rn Rehabilitation Relationship Specialty Start Date End Date Alyson Arthur MD [address] [place] [address] PCP - General Family Medicine 11/09/12 Shlomo Alcocer MD [address] [facility] [place] [address] Surgeon Cardiac Surg 02/20/23 Benjamin Pike MD [address] [facility] [place] [address] Referring Cardiovascular Surgery 02/20/23 Kiel Barnes MD [address] [place] [address] Primary Staff Physician Cardiology 03/15/23 Rn Rehabilitation Relationship Specialty Start Date End Date Alyson Arthur MD [address] [place], [place] 573641 PCP - General Family Medicine 11/09/12 Rn Rehabilitation Relationship Specialty Start Date End Date Alyson Arthur MD [address] [place] [address] PCP - General Family Medicine 11/09/12 Shlomo Alcocer MD [address] [place], [place] 5965195 Surgeon Cardiac Surg 02/20/23 Benjamin Pike MD [address] [facility] [place], [place] [phone] Referring Cardiovascular Surgery 02/20/23 Kiel Barnes MD [address] [place], [place] [phone] Primary Staff Physician Cardiology 03/15/23 Rn Rehabilitation Relationship Specialty Start Date End Date Alyson Arthur MD [address] [place] [address] PCP - General Family Medicine 11/09/12 Rn Rehabilitation Relationship Specialty Start Date End Date Alyson Arthur MD [address] [place] [address] PCP - General Family Medicine 11/09/12 Rn Rehabilitation Relationship Specialty Start Date End Date Alyson Arthur MD [address] [place] [address] PCP - General Family Medicine 11/09/12 Rn Rehabilitation Relationship Specialty Start Date End Date Alyson Arthur MD [address] [place] [address] PCP - General Family Medicine 11/09/12 Shlomo Alcocer MD [address] [place] [address] Surgeon Cardiac Surg 02/20/23 Benjamin Pike MD [address] [facility] [place] [address] Referring Cardiovascular Surgery 02/20/23 Kiel Barnes MD [address] [place] [address] Primary Staff Physician Cardiology 03/15/23 Rn Rehabilitation Relationship Specialty Start Date End Date Alyson Arthur MD [address] [place], [place] 497791 PCP - General Family Medicine 11/09/12 Shlomo Alcocer MD [address] [place], [place] 8280395 Surgeon Cardiac Surg 02/20/23 Benjamin Pike MD [address] [facility] [place] [address] Referring Cardiovascular Surgery 02/20/23 Kiel Barnes MD [address] [place] [address] Primary Staff Physician Cardiology 03/15/23 Rn Rehabilitation Relationship Specialty Start Date End Date Alyson Arthur MD [address] [place] [address] PCP - General Family Medicine 11/09/12 Shlomo Alcocer MD [address] [place] [address] Surgeon Cardiac Surg 02/20/23 Benjamin Pike MD [address] [facility] [place], [place] [phone] Referring Cardiovascular Surgery 02/20/23 Kiel Barnes MD [address] [place], [place] 6440395 Primary Staff Physician Cardiology 03/15/23 Angela Schmid APRN.GUEST HISTORY CLERK [address] [place] [address] [facility] 01/22/24 Margi Riddle APRN.GUEST HISTORY CLERK [address] [place] [address] [facility] 01/22/24 Rn Rehabilitation Relationship Specialty Start Date End Date Alyson Arthur MD [address] [place], [place] 923691 PCP - General Family Medicine 11/09/12 Shlomo Alcocer MD [address] [place] [address] Surgeon Cardiac Surg 02/20/23 Benjamin Pike MD [address] [place] [address] Referring Cardiovascular Surgery 02/20/23 Kiel Barnes MD [address] [place] [address] Primary Staff Physician Cardiology 03/15/23 Angela Schmid APRN.GUEST HISTORY CLERK [address] [place] [address] [facility] 01/22/24 Margi Riddle APRN.GUEST HISTORY CLERK [address] [place] [address] Calender Inspector [facility] 01/22/24 Rn Rehabilitation Relationship Specialty Start Date End Date Alyson Arthur MD [address] [place] [address] PCP - General Family Medicine 11/09/12 Shlomo Alcocer MD [address] [place] [address] Surgeon Cardiac Surg 02/20/23 Benjamin Pike MD [address] [place], [place] [phone] Referring Cardiovascular Surgery 02/20/23 Kiel Barnes MD [address] [place] [address] Primary Staff Physician Cardiology 03/15/23 Angela Schmid APRN.GUEST HISTORY CLERK [address] [place] [address] [facility]24 Margi Riddle TECHNICAL ACCOUNT REPRESENTATIVE.GUEST HISTORY CLERK [address] [place] [address] Calender Inspector [facility] 01/22/24 Rn Rehabilitation Relationship Specialty Start Date End Date Alyson Arthur MD [address] [place] [address] PCP - General Family Medicine 11/09/12 Shlomo Alcocer MD [address] [place], [place] [id number] Surgeon Cardiac Surg 02/20/23 Benjamin Pike MD [address] [facility] [place] [address] Referring Cardiovascular Surgery 02/20/23 Kiel Barnes MD [address] [place], [place] [id number] Primary Staff Physician Cardiology 03/15/23 Angela Schmid APRN.GUEST HISTORY CLERK [address] [place] [address] [facility] 01/[facility]/24 Margi Riddle APRN.GUEST HISTORY CLERK [address] [place] [address] [facility] 01/22/24 Rn Rehabilitation Relationship Specialty Start Date End Date Alyson Arthur MD [address] [place], [place] [address]461 PCP - General Family Medicine 11/09/12 Shlomo Alcocer MD [address] [place] [address] Surgeon Cardiac Surg 02/20/23 Benjamin Pike MD [address] [facility] [place] [address] Referring Cardiovascular Surgery 02/20/23 Kiel Barnes MD [address] [place], [place] [id number] Primary Staff Physician Cardiology 03/15/23 Angela Schmid, TECHNICAL ACCOUNT REPRESENTATIVE.GUEST HISTORY CLERK [address] [place] [address] Calender Inspector Family [facility] 01/22/24 Margi Riddle TECHNICAL ACCOUNT REPRESENTATIVE.GUEST HISTORY CLERK [address] [place] [address] Calender Inspector [facility] 01/22/24 Rn Rehabilitation Relationship Specialty Start Date End Date Alyson Arthur MD [address] [place], [place] [address] PCP - General Family Medicine 11/09/12 Shlomo Alcocer MD [address] [place], [place] [id number] Surgeon Cardiac Surg 02/20/23 Benjamin Pike MD [address] [facility] [place] [address] Referring Cardiovascular Surgery 02/20/23 Kiel Barnes MD [address] [place] [address] Primary Staff Physician Cardiology 03/15/23 Angela Schmid, TECHNICAL ACCOUNT REPRESENTATIVE.GUEST HISTORY CLERK [address] [place] [address] [facility] 01/22/24 Margi Riddle, TECHNICAL ACCOUNT REPRESENTATIVE.GUEST HISTORY CLERK [address] [place] [address] [facility] 01/22/24 Rn Rehabilitation Relationship Specialty Start Date End Date Alyson Arthur MD [address] [place] [address] PCP - General Family Medicine 11/09/12 Shlomo Alcocer MD [address] [place] [address] Surgeon Cardiac Surg 02/20/23 Benjamin Pike MD [address] [place] [address] Referring Cardiovascular Surgery 02/20/23 Kiel Barnes MD [address] [place], [place] [id number] Primary Staff Physician Cardiology 03/15/23 Angela Schmid, PRICILA.GUEST HISTORY CLERK [address] [place] [address] Calender Inspector [facility] 01/22/24 Margi Riddle, TECHNICAL ACCOUNT REPRESENTATIVE.GUEST HISTORY CLERK [address] [place] [address] Calender Inspector [facility] 01/22/24 Rn Rehabilitation Relationship Specialty Start Date End Date Alyson Arthur MD [address] [place], [place] [address]31 PCP - General Family Medicine 11/09/12 Shlomo Alcocer MD [address] [place] [address] Surgeon Cardiac Surg 02/20/23 Benjamin Pike MD [address] [place], [place] [id number] Referring Cardiovascular Surgery 02/20/23 Kiel Barnes MD [address] [place], [place] [id number] Primary Staff Physician Cardiology 03/15/23 Angela Schmid APRN.GUEST HISTORY CLERK [address] [place] [address] Calender Inspector Family [facility] 01/22/24 Margi Riddle APRN.GUEST HISTORY CLERK [address] [place] [address] Calender Inspector [facility] 01/22/24 Rn Rehabilitation Relationship Specialty Start Date End Date Alyson Arthur MD [address] [place], [place] [address] PCP - General Family Medicine 11/09/12 Shlomo Alcocer MD [address] [place] [address] Surgeon Cardiac Surg 02/20/23 Benjamin Pike MD [address] [facility] [place] [address] Referring Cardiovascular Surgery 02/20/23 Kiel Barnes MD [address] [place] [address] Primary Staff Physician Cardiology 03/15/23 Angela Schmid APRN.GUEST HISTORY CLERK [address] [place] [address] [facility] 01/22/24 Margi Riddle APRN.GUEST HISTORY CLERK [address] [place] [address] [facility] 01/22/24 Rn Rehabilitation Relationship Specialty Start Date End Date Alyson Arthur MD [address] [place], [place] 410391 PCP - General Family Medicine 11/09/12 Shlomo Alcocer MD [address] [place] [address] Surgeon Cardiac Surg 02/20/23 Benjamin Pike MD [address] [facility] [place] [address] Referring Cardiovascular Surgery 02/20/23 Angela Schmid APRN.GUEST HISTORY CLERK [address] [place], [place] [address] Calender Inspector [facility] 01/22/24 Margi Riddle APRN.GUEST HISTORY CLERK [address] [place], [place] [id number] [facility]24 Team Status: Inactive Member Role Status Dates Dr. Alyson Arthur MD Primary Care Provider Active Start: June 20, 2024 End: June 20, 2024 Dr. Walter Sellers MD Attending Provider Active Start: June 20, 2024 End: June 20, 2024 Dr. Walter Sellers MD Referring Provider Active Start: June 20, 2024 End: June 20, 2024 Team Status: Inactive Member Role Status Dates Dr. Alyson Arthur MD Primary Care Provider Active Start: July 24, 2024 End: July 24, 2024 Dr. Walter Sellers MD Attending Provider Active Start: July 24, 2024 End: July 24, 2024 Dr. Walter Sellers MD Referring Provider Active Start: July 24, 2024 End: July 24, 2024 Rn Rehabilitation Relationship Specialty Start Date End Date Alyson Arthur MD [address] [place], [place] [address] PCP - General Family Medicine 11/09/12 Shlomo Alcocer MD [address] [place] [address] Surgeon Cardiac Surg 02/20/23 Angela Schmid, TECHNICAL ACCOUNT REPRESENTATIVE.GUEST HISTORY CLERK [address] [facility] [place] [address] Calender Inspector [facility] 01/22/24 Margi Riddle, TECHNICAL ACCOUNT REPRESENTATIVE.GUEST HISTORY CLERK [address] [facility] [place] [address] Calender Inspector [facility] 01/22/24 Rn Rehabilitation Relationship Specialty Start Date End Date Alyson Arthur MD [address] [facility] [place] [address] PCP - General Family Medicine 11/09/12 Shlomo Alcocer MD [address] [place] [address] Surgeon Cardiac Surg 02/20/23 Angela Schmid, TECHNICAL ACCOUNT REPRESENTATIVE.GUEST HISTORY CLERK [address] [facility] [place] [address] Calender Inspector [facility] 01/22/24 Margi Riddle TECHNICAL ACCOUNT REPRESENTATIVE.GUEST HISTORY CLERK [address] [facility] [place] [address] Calender Inspector [facility] 01/22/24 Rn Rehabilitation Relationship Specialty Start Date End Date Alyson Arthur MD [address] [facility] [place] [address] PCP - General Family Medicine 11/09/12 Shlomo Alcocer MD [address] [facility] [place] [address] Surgeon Cardiac Surg 02/20/23 Angela Schmid APRN.GUEST HISTORY CLERK [address] [place] [address] Calender Inspector Family [facility] 01/22/24 Margi Riddle TECHNICAL ACCOUNT REPRESENTATIVE.GUEST HISTORY CLERK [address] [place] [address] Calender Inspector Family [facility] 01/22/24 Rn Rehabilitation Relationship Specialty Start Date End Date Alyson Arthur MD [address] [place] [address] PCP - General Family Medicine 11/09/12 Shlomo Alcocer MD [address] [facility] [place] [address] Surgeon Cardiac Surg 02/20/23 Angela Schmid, TECHNICAL ACCOUNT REPRESENTATIVE.GUEST HISTORY CLERK [address] [place] [address] [facility] 01/22/24 Margi Riddle TECHNICAL ACCOUNT REPRESENTATIVE.GUEST HISTORY CLERK [address] [place] [address] [facility] 01/22/24 Rn Rehabilitation Relationship Specialty Start Date End Date Alyson Arthur MD [address] [place], [place] [address] PCP - General Family Medicine 11/09/12 Shlomo Alcocer MD [address] [place], [place] [id number] Surgeon Cardiac Surg 02/20/23 Angela Schmid, TECHNICAL ACCOUNT REPRESENTATIVE.GUEST HISTORY CLERK [address] [place], [place] [address] [facility] 01/22/24 Margi Riddle TECHNICAL ACCOUNT REPRESENTATIVE.GUEST HISTORY CLERK [address] [place], [place] [address]301 [facility] 01/22/24 Team Status: Active Member Role/Relationship Status Dates Dr. Alyson Arthur MD Family Provider Active Dr. Alyson Arthur MD Primary Care Provider Active Team Status: Inactive Member Role/Relationship Status Dates Dr. Alyson Arthur MD Primary Care Provider Active Start: June 20, 2024 End: June 20, 2024 Dr. Walter Sellers MD Attending Provider Active Start: June 20, 2024 End: June 20, 2024 Dr. Walter Sellers MD Referring Provider Active Start: June 20, 2024 End: June 20, 2024 Team Status: Inactive Member Role/Relationship Status Dates Dr. Alyson Arthur MD Primary Care Provider Active Start: July 24, 2024 End: July 24, 2024 Dr. Walter Sellers MD Attending Provider Active Start: July 24, 2024 End: July 24, 2024 Dr. Walter Sellers MD Referring Provider Active Start: July 24, 2024 End: July 24, 2024 Team Status: Inactive Member Role/Relationship Status Dates Dr. Alyson Arthur MD Primary Care Provider Active Start: August 21, 2024 End: August 21, 2024 Dr. Walter Sellers MD Attending Provider Active Start: August 21, 2024 End: August 21, 2024 Dr. Walter Sellers MD Referring Provider Active Start: August 21, 2024 End: August 21, 2024 Rn Rehabilitation Relationship Specialty Start Date End Date Alyson Arthur MD [address] [place], [place] [address] PCP - General Family Medicine 11/09/12 Shlomo Alcocer MD [address] [place] [address] Surgeon Cardiac Surg 02/20/23 Angela Schmid APRN.GUEST HISTORY CLERK [address] [facility] [place] [address] Calender Inspector Family [facility] 01/22/24 Margi Riddle TECHNICAL ACCOUNT REPRESENTATIVE.GUEST HISTORY CLERK [address] [place] [address] Calender Inspector [facility] 01/22/24 Rn Rehabilitation Relationship Specialty Start Date End Date Alyson Arthur MD [address] [place] [address] PCP - General Family Medicine 11/09/12 Shlomo Alcocer MD [address] [place] [address] Surgeon Cardiac Surg 02/20/23 Angela Schmid APRN.GUEST HISTORY CLERK [address] [place] [address] Calender Inspector Family [facility] 01/22/24 Margi Riddle TECHNICAL ACCOUNT REPRESENTATIVE.GUEST HISTORY CLERK [address] [place] [address] [facility] 01/22/24 Rn Rehabilitation Relationship Specialty Start Date End Date Alyson Arthur MD [address] [place] [address] PCP - General Family Medicine 11/09/12 Shlomo Alcocer MD [address] [place] [address] Surgeon Cardiac Surg 02/20/23 Angela Schmid APRN.GUEST HISTORY CLERK [address] [place] [address] [facility] 01/22/24 Margi Riddle TECHNICAL ACCOUNT REPRESENTATIVE.GUEST HISTORY CLERK [address] [place] [address] [facility] 01/22/24 Rn Rehabilitation Relationship Specialty Start Date End Date Alyson Arthur MD [address] [place], [place] [address] PCP - General Family Medicine 11/09/12 Shlomo Alcocer MD [address] [place] [address] Surgeon Cardiac Surg 02/20/23 Angela Schmid, TECHNICAL ACCOUNT REPRESENTATIVE.GUEST HISTORY CLERK [address] [place] [address] [facility] 01/22/24 Margi Riddle TECHNICAL ACCOUNT REPRESENTATIVE.GUEST HISTORY CLERK [address] [place] [address] [facility] 01/22/24 Rn Rehabilitation Relationship Specialty Start Date End Date Alyson Arthur MD [address] [place], [place] [address] PCP - General Family Medicine 11/09/12 Shlomo Alcocer MD [address] [place], [place] [address] Surgeon Cardiac Surg 02/20/23 Angela Schmid APRN.GUEST HISTORY CLERK [address] [place], [place] [address] [facility] 01/22/24 Margi Riddle APRN.GUEST HISTORY CLERK [address] [place], [place] [address] [facility] 01/22/24 Rn Rehabilitation Relationship Specialty Start Date End Date Alyson Arthur MD [address] [place], [place] [address] PCP - General Family Medicine 11/09/12 Shlomo Alcocer MD [address] [place] [address] Surgeon Cardiac Surg 02/20/23 Angela Schmid APRN.GUEST HISTORY CLERK [address] [place], [place] [address] [facility] 01/22/24 Margi Riddle APRN.GUEST HISTORY CLERK [address] [place], [place] [id number] [facility] 01/22/24 Goals (unrecognized section and content) Goals may be documented in a n alternate sectionGoals may be documented in an alternate sectionGoals may be documented in an alternate sectionGoals may be documented in an alternate sectionGoals may be documented in an alternate section No data available for this section No data available for this section No data available for this sectionGoals may be documented in an alternate sectionGoals may be documented in an alternate sectionGoals may be documented in an alternate sectionGoals may be documented in an alternate section (unrecognized sect ion and content) No Status Records FoundNo Status Records FoundNo Status Records FoundNo Status Records FoundNo Status Records Found INFORMATION SOURCE (unrecogn ized section and content) DATE CREATED AUTHOR 08/13/2023 [facility] ([place]) DATE CREATED AUTHOR AUTHOR'S ORGANIZ ATION 03/04/2024 [facility] DATE CREATED AUTHOR AUTHOR'S ORGANIZ ATION 08/29/2024 [facility] DATE CREATED AUTHOR AUTHOR'S ORGANIZ ATION 09/13/2024 [facility] DATE CREATED AUTHOR AUTHOR'S ORGANIZ ATION 12/05/2024 [facility] FOR RECORDS PERTAINING TO PATIENTS WHO [...] BE BASED ON THE PRIMARY CLINICAL RECORDS. [employer] provides no warranty or guarantee of the accuracy or completeness of information in this document.
[2024-12-15 18:32] LABS: Hematocrit 53.1 % (40-54); Immature Granulocytes Count 0.040 X10^3/uL (0.0-0.0); Mean Corp Hgb Conc 34.5 g/dL (32-36); Mean Corpuscular Volume 87.6 fL (80-94); Mean Platelet Vol. 12.2 fl (6.2-12.0); NRBC Flagged by Analyzer 0 % (0-5); Platelet Count 234 K/mm3 (150-450); RBC Distribution Width CV 12.8 % (11.6-14.6); RBC Distribution Width SD 41.0 fl (35.1-43.9); Red Blood Count 6.06 M/mm3 (4.6-6.2); White Blood Count 14.0 K/mm3 (4.4-11.0)
[2024-12-15 18:34] LABS: Hemoglobin 18.3 g/dL (13.0-16.5)
--- NOTE | 2024-12-15 18:58 | EKG12_ITS ---
Test Reason : SOB Blood Pressure : */* mmHG Vent. Rate : 76 BPM Atrial Rate : 76 BPM P-R Int : 154 ms QRS Dur : 88 ms QT Int : 366 ms P-R-T Axes : 59 -47 59 degrees QTcB Int : 411 ms Normal sinus rhythm Left anterior fascicular block Nonspecific ST abnormality Abnormal ECG baseline artifact Confirmed by Dwight Johnston ([id number]), content editor JESUSITA ROQUE ([id number]) on 12/16/2024 12:54:28 PM Referred By: Confirmed By: Dwight Johnston
[2024-12-15 19:03] LABS: Lipase 12 U/L (13-75); Pro- Brain NATRIURETIC PEPTIDE 120 pg/mL (<=900); Troponin T High Sensitivity 15 ng/L (<=22)
[2024-12-15 19:04] LABS: AST(SGOT) 19 U/L (<=37); Alanine Aminotransfer ALT/SGPT 11 U/L (<=46); Albumin, Serum 4.1 g/dL (3.4-4.8); Alkaline Phosphatase 112 U/L (40-129); Anion Gap 15 (5-15); BUN 20 mg/dL (4-19); BUN/Creat Ratio 21.1 RATIO (10-20); Calcium,Total 9.5 mg/dL (7.6-11.0); Carbon Dioxide 24.9 mmol/L (21.0-32.0); Chloride 97 mmol/L (98-108); Estimated Creatinine Clearance 94.11 ml/min (50-250); Globulin 2.9 g/dL (2.2-4.2); Glucose 259 mg/dL (70-99); Potassium 3.9 mmol/L (3.3-5.1)
[2024-12-15 19:21] LABS: Red Blood Cells-Urine 0 SEEN /hpf (0-5); Squamous Epithelial Cells - UA 0 SEEN /hpf (0-5)
[2024-12-15 19:22] LABS: Color, Urine Yellow (Yellow); Glucose, Dipstick Normal (Normal); Ketone-Dipstick Negative (Negative); Leukocyte Esterase-Dipstick 100 /ul (Negative); Nitrite-Dipstick Negative (Negative); Occult Blood-Urine 10 /ul (Negative); Protein-Dipstick 30 mg/dl (Negative); Specific Gravity, Urine 1.020 (1.002-1.030); Urine Bilirubin Dipstick Negative (Negative)
[2024-12-15 19:31] LABS: Mucous, Urine 1+ /hpf (<or=2+)
--- NOTE | 2024-12-15 19:34 | RAD_ITS ---
PROCEDURE: CHEST PA AND LATERAL 12/15/2024 REASON FOR EXAM: DYSPNEA TECHNIQUE: Procedure Code: RADCXR Modality: DX Procedure: CHEST PA AND LATERAL COMPARISON: Concurrent CT abdomen and pelvis, chest radiograph 10/18/2023 FINDINGS: Hardware: Median sternotomy wires Mediastinum: Enlarged cardiomediastinal silhouette, unchanged Lungs: No focal consolidation or significant pleural effusion. Bones: Degenerative changes are identified within the thoracic spine. There is free air under the right hemidiaphragm. RAD/Chest PA and Lateral IMPRESSION: 1. Pneumoperitoneum, better evaluated on concurrent CT abdomen and pelvis. 2. No acute cardiopulmonary abnormality. Reading Location: [id number]
[2024-12-15] MEDS: metroNIDAZOLE 500 MG/100 ML BAG 100 MG IV (20:12)
[2024-12-15 20:33] LABS: Troponin T High Sens 2 HR 16 ng/L (<=22)
--- NOTE | 2024-12-15 20:34 | CON.PCM.HO_ITS ---
Assessment & Plan Assessment/Plan (1) Perforated abdominal viscus: PLAN: Plan The patient is a 64 y/o M w/ PMHx: Morbid obesity, Hx CVA w/ chronic R sided hemiplegia/facial droop, slurred speech, HTN, HLD, Valvular Heart Disease s/p bioprosthetic porcine AVR, GERD, Diabetes mellitus type II with chronic neuropathy, COPD/Asthma, Anxiety and Depression/Bipolar disorder, MANISH on CPAP, Tobacco use who presents to the [facility] ED on 12/15/24 with history of abdominal pain primarily in the right upper and lower quadrant ongoing over the last 12 to 24 hours with no associated nausea or emesis no any fevers or chills with underlying chronic issues with constipation with mild dyspnea prompting eventual ED evaluation be cautious. #1. Intractable acute abdominal pain, right sided secondary to acutely perforated abdominal viscus of unclear location: Patient being transition from the ED to the OR per primary service and following this plan for ICU transition, did discuss with general surgeon and recommend if any concerns low threshold to maintain intubated status at least overnight, would expect continued use of hydration, IV PPI versus IV famotidine, suspect likely patient will have NG tube following OR but uncertain, would expect patient to be maintained on IV Cipro/Flagyl given penicillin allergy however will defer to primary service, would expect continued trending of CBC, CMP and will also obtain magnesium given diabetic history of medications, antiemetics/pain regimen per primary service, would expect PT/OT/case management also for discharge planning assistance. #2. History CVA: Patient with chronic right-sided hemiplegia/facial droops, slurred speech, holding antiplatelet/anticoagulant therapy given plan for emergent OR as noted, add back once cleared per surgery, holding statin therapy and hypertensive regimen given emergent surgery with perforated abdominal viscus, add back once clinically appropriate and amenable per surgery. Suspect that at some point patient possibly had episode of atrial fibrillation as to the reason why he is on a NOAC in addition to an antiplatelet therapy but uncertain. #3. Valvular heart disease: Status post bioprosthetic porcine AVR, most recent echocardiogram 06/28/2023 with mild concentric LVH, LVEF 65%, mildly enlarged LA, bioprosthetic AV functioning normally with a mean peak gradient 5.2 mmHg. #4. Hypertension: Holding all oral regimen given presentation as noted #1, add back hypertensive regimen once cleared per surgery, as needed IV hydralazine in interim. #5. Hyperlipidemia: Holding all oral regimen given presentation as noted #1, add back statin therapy once cleared per surgery. #6. Chronic COPD/asthma: Will temporarily hold home inhalers in the interim transition to ATC budesonide therapy, PRN albuterol, HOB, IS parameters. Temporarily holding oral daily prophylactic azithromycin given perforated viscus as noted #1, add back once appropriate. Maintained as noted above on antibiotic therapy. #7. Diabetes mellitus type II with chronic neuropathy: Hold oral home regimen, will continue long-acting insulin regimen with one half dose potential while n.p.o. versus hold pending blood sugar trending, n.p.o. status given ##1 presentation, NPO status, maintain on every 6 hours accu checks w/ ISS. #8. Tobacco Abuse: Encouraged cessation, inpatient consultation per RT, NR if desired. #9. MANSIH: CPAP nightly normally however given presentation #1 will defer any PAP therapy to avoid worsening his perforation status. #10. Morbid Obesity: Weight loss and lifestyle changes encouraged, nutrition consulted. #11. Anxiety depression/bipolar disorder: Holding all psychiatric regimen, add back once oral intake cleared for surgery. #12. DVT prophylaxis: SCDs, holding NOAC and antiplatelet therapy temporarily given plan for surgical intervention emergently as noted. #13. CODE status: Patient healthcare part returning living will are not in place however notes his would be his medical decision-maker if necessary. Discussed CODE status at length including difference between FULL code, DNR-CCA and DNR-CC status. Following discussions about the differences in these status, requested Full Code status. Advanced Care Planning Face to Face Time: 16 minutes. HPI Consult Data Date of Consult: 12/15/24 Attending Care Provider: Dr. Stevenson, General Surgery HPI Narrative Reason for Consultation: Medical consultation. HPI Narrative: The patient is a 64 y/o M w/ PMHx: Morbid obesity, Hx CVA w/ chronic R sided hemiplegia/facial droop, slurred speech, HTN, HLD, Valvular Heart Disease s/p bioprosthetic porcine AVR, GERD, Diabetes mellitus type II with chronic neuropathy, COPD/Asthma, Anxiety and Depression/Bipolar disorder, MANISH on CPAP, Tobacco use who presents to the [facility] ED on 12/15/24 with history of abdominal pain primarily in the right upper and lower quadrant ongoing over the last 12 to 24 hours with no associated nausea or emesis no any fevers or chills with underlying chronic issues with constipation with mild dyspnea prompting eventual ED evaluation be cautious. In the ED patient rates his pain 5-6 out of 10 in severity and notes it is more dull aching throbbing but with palpation of the region severely sharp. Workup in the ED included T98.2, heart 73, BP 125/67, respiratory rate 26, 95% on room air with most recent repeat vitals T99.2, heart rate 79, BP 139/74, respiratory rate 21, 94% on 2 L nasal cannula, CBC with WC 14.0, hemoglobin 18.3, MCV 87.6, platelet 234 with left shift, CMP with chloride 97, BUN/creatinine 20/0.93, GFR 93, glucose 259, hepatic profile unremarkable, troponin initial 15 with repeat delta 16, NT proBNPII 120, lipase 12, urinalysis with specific gravity 1.020, urine protein 30, occult blood 10, negative nitrate, leukocyte esterase 10, no urine bacteria or urine WBCs, type and screen initiated per ED, chest x-ray with pneumoperitoneum with no acute cardiopulmonary findings, follow-up CT abdomen and pelvis with pneumoperitoneum concerning for hollow viscus perforation possibly stomach or transverse colon although source unclear, small volume free fluid in the pelvis and right lower abdominal quadrant, fat density lesion to the medial aspect of the right gluteal musculature possibly a lipoma, EKG with sinus rhythm with no acute evidence of ischemia. In the ED patient ministered Zofran 4 mg IV x 1, morphine 4 mg IV x 1, morphine 6 mg IV x 1, ciprofloxacin 400 mg IV x 1, metronidazole 500 mg IV x 1 as well as DuoNeb therapy. ED physician discussed case with general surgeon Dr. Stevenson to who plans transition from ED to OR and will admit the patient following to the ICU. Hospitalist service called for medical consultation. [facility] Medical History Stroke Carpal tunnel syndrome, bilateral LVH (left ventricular hypertrophy) Essential (primary) hypertension Diabetic neuropathy Degenerative disc disease Atherosclerotic heart disease of [place] coronary artery without angina pectoris Bipolar 1 disorder Bicuspid aortic valve Atrial septal defect and mitral stenosis Anxiety Hearing loss, left Chronic pain Pancreatitis GERD (gastroesophageal reflux disease) Smoker CPAP (continuous positive airway pressure) dependence Asthma Leaky heart valve MANISH (obstructive sleep apnea) Morbid obesity HLD (hyperlipidemia) Type II diabetes mellitus History of carpal tunnel syndrome COPD (chronic obstructive pulmonary disease) Home Medications ?Medication ?Instructions ?Recorded ?Last Taken ?Type atorvastatin 10 mg tablet 10 mg PO QHS cholesterol 06/21/23 History budesonide-formoterol HFA 80 2 puff inhalation BID lisa g disease 10/30/20 06/22/23 History mcg-4.5 mcg/actuation aerosol inhaler pantoprazole 40 mg tablet,delayed 40 mg PO DAILY reflu x 10/30/20 06/22/23 History release acetaminophen 500 mg tablet 1,000 mg PO TID PRN Pain 0 10/18/21 Unknown History albuterol sulfate 90 mcg/actuation 1 - 2 puff inhalati on Q4H PRN PRN 10/18/21 Unknown Rx aerosol inhaler (Ventolin HFA) Wheezing #8.5 grams insulin aspart U-100 100 unit/mL 2 unit subcut TID isreal betes 10/14/22 06/22/23 History (3 mL) subcutaneous pen (Novolog FlexPen U-100 Insulin aspart) insulin glargine 100 unit/mL (3 12 unit subcut .QAM di abetes 10/14/22 06/22/23 History mL) subcutaneous pen pregabalin 100 mg capsule (Lyrica) 100 mg PO DAILY MAJOR ROPATHY 10/14/22 06/22/23 History amlodipine 5 mg tablet 5 mg PO DAILY blood pressure 06/22/23 06/22/23 History apixaban 5 mg tablet (Eliquis) 5 mg PO BID blood thinn er 06/22/23 06/22/23 History aspirin 81 mg tablet,delayed 81 mg PO DAILY heart heal th 06/22/23 06/22/23 History release (Adult Aspirin Regimen) bumetanide 1 mg tablet 2 mg PO BID edema 06/22/23 0 06/22/23 History docusate sodium 100 mg capsule 100 mg PO DAILY PRN con stipation 06/22/23 Unknown History (Col-Rite) metoprolol tartrate 25 mg tablet 37.5 mg PO Q12H blood pressure / 06/22/23 06/22/23 History heart [id number] 300 mcg-K 60 1 tab PO DAILY suppleme nt 06/22/23 06/22/23 History mcg-lycop 600 mcg-lutein 300 mcg tablet (Centrum Silver Men) ondansetron HCl 4 mg tablet 4 mg PO Q8H PRN PRN nausea and 06/22/23 06/22/23 History vomiting pregabalin 200 mg capsule 200 mg PO DAILY nerve pain 0 06/22/23 06/22/23 History tramadol 50 mg tablet 50 mg PO Q6H PRN pain 06/22/23 History trazodone 50 mg tablet 50 mg PO QHS sleep 06/22/23 06/21/23 History calcium carbonate 500 mg (2.5 x 200 mg calcium (500 06/24/23 Unknown Rx mg)) PO Q6H PRN PRN HEARTBURN #0 tabs azithromycin 500 mg tablet 500 mg PO DAILY 5 days #5 t abs 10/18/23 Unknown Rx Allergy/AdvReac Type Severity Reaction Status Date / Time Penicillins Allergy Hives Verified 12/15/24 17:40 fluticasone (From Flonase) AdvReac Severe Nose Bleeds Verified 12/15/24 17:40 lisinopril AdvReac Intermediate Upset Verified 12/15/24 17:40 Stomach NASAL SPRAY AdvReac Intermediate Chest Uncoded 10/09/22 14:22 tightness Family History Father Diabetes Dementia Mother CAD (coronary artery disease) CABG X4 Sister Diabetes Brother Ischemic heart disease Brother Myocardial infarction Surgical History History of back surgery Social History household members: spouse housing: house Smoking Status: Current every day smoker tobacco type: cigarettes Tobacco: How many years used: 45 alcohol intake: current alcohol intake frequency: holidays/special occasions only substance use type: does not use ROS ROS Narrative Admission Review of Systems: CONSTITUTIONAL: No weight loss, fever, chills, + weakness or fatigue. HEENT: Eyes: No visual loss, blurred vision, double vision or yellow sclerae. Ears, Nose, Throat: No hearing loss, sneezing, congestion, runny nose or sore throat. SKIN: No rash or itching, lesions, wounds except + occasional stage ecchymoses, abrasion, venous stasis skin changes. CARDIOVASCULAR: No chest pain, chest pressure or chest discomfort, palpitations, edema, orthopnea, syncopal events. RESPIRATORY: + Dyspnea. No cough or sputum, wheezing, hemoptysis. GASTROINTESTINAL: + anorexia, abdominal pain, chronic constipation. No nausea, vomiting melena, BRBPR. GENITOURINARY: No dysuria, frequency, urgency or retention. NEUROLOGICAL: + History of CVA with right-sided hemiplegia, right facial droop, slurred speech. No headache, dizziness, syncope, numbness or tingling in the extremities, change in bowel or bladder control, seizure. MUSCULOSKELETAL: + muscle, back pain, joint pain or stiffness. HEMATOLOGIC: No anemia. + Easy bleeding/bruising. LYMPHATICS: No enlarged nodes. No history of splenectomy. PSYCHIATRIC: + History of anxiety and depression/bipolar disorder. ENDOCRINOLOGIC: No reports of sweating, cold or heat intolerance. No polyuria or polydipsia. ALLERGIES: + History of hives. Physical Exam Narrative Physical Examination: General: Awake, alert, oriented x 3, remains cooperative, fatigued and uncomfortable appearing, rating abdominal pain at rest 5 out of 10 with palpation 10 out of 10. Skin: Normal color, normal turgor, no icterus, no cyanosis except occasional stage ecchymoses, abrasion, venous stasis skin changes.. HEENT: AT/NC, EOMI, PERRLA, moderately dry MM, no carotid bruits or JVD noted. Lungs: Mildly diminished, greater bases, mildly increased respiratory rate but no distress, no rales, ronchi or wheezing. Heart: Regular rate and rhythm; no gallop, rub audible. Abdomen: Soft, significant abdominal pain primarily right upper and lower quadrants with rebound guarding, difficult to assess distention given pain but some tympany, distant BS, difficult to appreciate HSM given severity of pain with palpation temps. Extremities: No cyanosis, no clubbing, no significant distal pitting edema. Neurological: Patient awake, alert, oriented as noted, cognitive function suspect baseline intact; pupils equally reactive to light and accommodation, cranial nerves grossly normal aside from chronic right sided mild facial droop with some correction with facial movement, moving all 4 extremities except notable limitation right side given right mild hemiplegia following CVA history, strength severely globally decreased Psychiatric: Affect appears fatigued, flat, uncomfortable, no acute evidence of depressive or anxiety feelings but does have underlying history. Lab / Micro Data 12/15/24 17:53 12/15/24 17:53 Labs: Laboratory Results - last 24 hr 12/15/24 17:53: WBC 14.0 H, RBC 6.06, Hgb 18.3 H*, Hct 53.1, MCV 87.6, MCH 30.2, MCHC 34.5, RDW Std Deviation 41.0, RDW Coeff of David 12.8, Plt Count 234, MPV 12.2 H, Immature Gran % (Auto) 0.300, Neut % (Auto) 82.4 H, Lymph % (Auto) 12.0 L, Ogle % (Auto) 4.6, Eos % (Auto) 0.2, Baso % (Auto) 0.5, Absolute Neuts (auto) 11.5 H, Absolute Lymphs (auto) 1.68, Nucleated RBC % 0, Sodium 136, Potassium 3.9, Chloride 97 L, Carbon Dioxide 24.9, Anion Gap 15, BUN 20 H, Creatinine 0.93, Estim Creat Clear Calc 94.11, Est GFR (MDRD) Non-Af 93, BUN/Creatinine Ratio 21.1 H, Glucose 259 H, Calcium 9.5, Total Bilirubin 0.52, AST 19, ALT 11, Alkaline Phosphatase 112, Troponin T High Sens 15, NT pro BNP II 120, Total Protein 7.1, Albumin 4.1, Globulin 2.9, Albumin/Globulin Ratio 1.4, Lipase 12 L 12/15/24 19:20: Urine Color Yellow, Urine Clarity Clear, Urine pH 6.0, Ur Specific [place] 1.020, Urine Protein 30 H, Urine Glucose (UA) Normal, Urine Ketones Negative, Urine Occult Blood 10 H, Urine Nitrite Negative, Urine Bilirubin Negative, Urine Urobilinogen 1 H, Ur Leukocyte Esterase 100 H, Urine RBC 0 SEEN, Urine WBC 0-5 SEEN, Ur Squamous Epith Cells 0 SEEN, Urine Bacteria 0 SEEN, Urine Mucus 1+ 12/15/24 20:02: Troponin T Hi Sens 2 Hr 16 Rhythm Strip Rhythm Strip: Sinus Rhythm Rate: 76 Ectopy: None Imaging Radiology Impression Abdomen/Pelvis CT 12/15/24 18:22 IMPRESSION: 1. Pneumoperitoneum, concerning for hollow viscus perforation, possibly of the stomach or transverse colon though source is not definitively identified. 2. Small volume of free fluid in the pelvis and right lower abdominal quadrant. 3. Fat density lesion near the medial aspect of the right gluteal musculature may represent a lipoma. Correlate with exam findings. Red Alert: Pneumoperitoneum The critical findings in the findings and impression above were relayed directly by me by telephone to Josué Villalobos on 12/15/2024 at 7:49 pm with readback verification. Reading Location: [facility] Chest X-Ray 12/15/24 19:34 IMPRESSION: 1. Pneumoperitoneum, better evaluated on concurrent CT abdomen and pelvis. 2. No acute cardiopulmonary abnormality. Reading Location: [facility] Charges/Coding Multi Select Codes Visit Charges Office Visit/Consults: 03107 IP Consult L5 Hospitalists' Procedures Procedures: 87846 Advncd Care Plan 30 Min
--- NOTE | 2024-12-15 20:46 | PCM.HP.STD ---
HPI - General HPI Narrative KIEL CARRANZA, is a 64 M who presents with severe abdominal pain. He reports the pain is on the right side and he thought he had appendicitis. The pain started today after he ate. He did have some vomiting. He reports the pain is on the right side. It does radiate to the rest of his abdomen. He denies fevers or chills. [facility] Medical History Stroke Carpal tunnel syndrome, bilateral LVH (left ventricular hypertrophy) Essential (primary) hypertension Diabetic neuropathy Degenerative disc disease Atherosclerotic heart disease of [place] coronary artery without angina pectoris Bipolar 1 disorder Bicuspid aortic valve Atrial septal defect and mitral stenosis Anxiety Hearing loss, left Chronic pain Pancreatitis GERD (gastroesophageal reflux disease) Smoker CPAP (continuous positive airway pressure) dependence Asthma Leaky heart valve MANISH (obstructive sleep apnea) Morbid obesity HLD (hyperlipidemia) Type II diabetes mellitus History of carpal tunnel syndrome COPD (chronic obstructive pulmonary disease) Home Medications ?Medication ?Instructions ?Recorded ?Last Taken ?Type atorvastatin 10 mg tablet 10 mg PO QHS cholesterol 11/03/16 06/21/23 History budesonide-formoterol HFA 80 2 puff inhalation BID lung disease 10/30/20 06/22/23 History mcg-4.5 mcg/actuation aerosol inhaler pantoprazole 40 mg tablet,delayed 40 mg PO DAILY reflux 10/30/20 06/22/23 History release acetaminophen 500 mg tablet 1,000 mg PO TID PRN Pain 10/18/21 Unknown History albuterol sulfate 90 mcg/actuation 1 - 2 puff inhalation Q4H PRN PRN 10/18/21 Unknown Rx aerosol inhaler (Ventolin HFA) Wheezing #8.5 grams insulin aspart U-100 100 unit/mL 2 unit subcut TID diabetes 10/14/22 06/22/23 History (3 mL) subcutaneous pen (Novolog FlexPen U-100 Insulin aspart) insulin glargine 100 unit/mL (3 12 unit subcut .QAM diabetes 10/14/22 06/22/23 History mL) subcutaneous pen pregabalin 100 mg capsule (Lyrica) 100 mg PO DAILY NEUROPATHY 10/14/22 06/22/23 History amlodipine 5 mg tablet 5 mg PO DAILY blood pressure 06/22/23 06/22/23 History apixaban 5 mg tablet (Eliquis) 5 mg PO BID blood thinner 06/22/23 06/22/23 History aspirin 81 mg tablet,delayed 81 mg PO DAILY heart health 06/22/23 06/22/23 History release (Adult Aspirin Regimen) bumetanide 1 mg tablet 2 mg PO BID edema 06/22/23 06/22/23 History docusate sodium 100 mg capsule 100 mg PO DAILY PRN constipation 06/22/23 Unknown History (Col-Rite) metoprolol tartrate 25 mg tablet 37.5 mg PO Q12H blood pressure / 06/22/23 06/22/23 History heart rkiwnzzp-jl-ciuwu 300 mcg-K 60 1 tab PO DAILY supplement 06/22/23 06/22/23 History mcg-lycop 600 mcg-lutein 300 mcg tablet (Centrum Silver Men) ondansetron HCl 4 mg tablet 4 mg PO Q8H PRN PRN nausea and 06/22/23 06/22/23 History vomiting pregabalin 200 mg capsule 200 mg PO DAILY nerve pain 06/22/23 06/22/23 History tramadol 50 mg tablet 50 mg PO Q6H PRN pain 06/22/23 06/22/23 History trazodone 50 mg tablet 50 mg PO QHS sleep 06/22/23 06/21/23 History calcium carbonate 500 mg (2.5 x 200 mg calcium (500 06/24/23 Unknown Rx mg)) PO Q6H PRN PRN HEARTBURN #0 tabs azithromycin 500 mg tablet 500 mg PO DAILY 5 days #5 tabs 10/18/23 Unknown Rx Allergy/AdvReac Type Severity Reaction Status Date / Time Penicillins Allergy Hives Verified 12/15/24 17:40 fluticasone (From Flonase) AdvReac Severe Nose Bleeds Verified 12/15/24 17:40 lisinopril AdvReac Intermediate Upset Verified 12/15/24 17:40 Stomach NASAL SPRAY AdvReac Intermediate Chest Uncoded 10/09/22 14:22 tightness Family History Father Diabetes Dementia Mother CAD (coronary artery disease) CABG X4 Sister Diabetes Brother Ischemic heart disease Brother Myocardial infarction Surgical History History of back surgery Social History household members: spouse housing: house Smoking Status: Current every day smoker tobacco type: cigarettes Tobacco: How many years used: 45 alcohol intake: current alcohol intake frequency: holidays/special occasions only substance use type: does not use ROS Constitutional Constitutional: Denies anorexia, chills, fatigue or fever(s) Eyes Eyes: Denies blurry vision ENT HEENT: Denies abnormal hearing Cardiovascular Cardiovascular: Denies chest pain Respiratory/Chest Respiratory/Chest: Reports dyspnea; Denies cough Gastrointestinal Gastrointestinal: Reports abdominal pain, constipation, nausea and vomiting Genitourinary Genitourinary: Denies change in urinary stream Musculoskeletal Musculoskeletal: Reports difficulty walking; Denies abnormal gait or back pain Integumentary Integumentary: Denies jaundice Neurologic Neurologic: Denies abnormal gait Psychiatric Psychiatric: Denies anxiety Vital Signs Vital Signs Vital Signs: 12/15/24 17:40 12/15/24 18:35 12/15/24 18:39 Temperature 98.2 F Temperature Source Temporal Pulse Rate 73 80 91 Respiratory Rate 26 H 24 H 27 H Respiratory Pattern Tachypnea Blood Pressure 125/67 H 151/72 H Blood Pressure Mean 86 98 Pulse Ox 95 100 Oxygen Delivery Method Room Air Room Air Oxygen Flow Rate (L/min) 12/15/24 19:00 12/15/24 19:02 12/15/24 20:00 Temperature Temperature Source Pulse Rate 79 78 Respiratory Rate 20 H 22 H Respiratory Pattern Blood Pressure 129/88 H 139/74 H Blood Pressure Mean 101 95 Pulse Ox 96 98 100 Oxygen Delivery Method Nasal Cannula Room Air Oxygen Flow Rate (L/min) 4 12/15/24 20:35 12/15/24 20:35 Temperature 98.2 F 99.2 F H Temperature Source Oral Pulse Rate 78 79 Respiratory Rate 22 H 21 H Respiratory Pattern Blood Pressure 139/74 H 139/74 H Blood Pressure Mean 95 95 Pulse Ox 100 94 Oxygen Delivery Method Nasal Cannula Oxygen Flow Rate (L/min) 2 Weight Weight: 255 lb 4.8 oz Body Mass Index (BMI) 43.8 Physical Exam Const oriented x3 and no apparent distress Resp normal respiratory effort Cardio regular rate and regular rhythm GI soft to palpation Palpation: tender Positive for epigastric, RLQ and RUQ Extremity normal to inspection Results Lab / Micro Data 12/15/24 17:53 12/15/24 17:53 Labs: Laboratory Results - last 24 hr 12/15/24 17:53: WBC 14.0 H, RBC 6.06, Hgb 18.3 H*, Hct 53.1, MCV 87.6, MCH 30.2, MCHC 34.5, RDW Std Deviation 41.0, RDW Coeff of David 12.8, Plt Count 234, MPV 12.2 H, Immature Gran % (Auto) 0.300, Neut % (Auto) 82.4 H, Lymph % (Auto) 12.0 L, [place] % (Auto) 4.6, Eos % (Auto) 0.2, Baso % (Auto) 0.5, Absolute Neuts (auto) 11.5 H, Absolute Lymphs (auto) 1.68, Nucleated RBC % 0, Sodium 136, Potassium 3.9, Chloride 97 L, Carbon Dioxide 24.9, Anion Gap 15, BUN 20 H, Creatinine 0.93, Estim Creat Clear Calc 94.11, Est GFR (MDRD) Non-Af 93, BUN/Creatinine Ratio 21.1 H, Glucose 259 H, Calcium 9.5, Total Bilirubin 0.52, AST 19, ALT 11, Alkaline Phosphatase 112, Troponin T High Sens 15, NT pro BNP II 120, Total Protein 7.1, Albumin 4.1, Globulin 2.9, Albumin/Globulin Ratio 1.4, Lipase 12 L 12/15/24 19:20: Urine Color Yellow, Urine Clarity Clear, Urine pH 6.0, Ur Specific [place] 1.020, Urine Protein 30 H, Urine Glucose (UA) Normal, Urine Ketones Negative, Urine Occult Blood 10 H, Urine Nitrite Negative, Urine Bilirubin Negative, Urine Urobilinogen 1 H, Ur Leukocyte Esterase 100 H, Urine RBC 0 SEEN, Urine WBC 0-5 SEEN, Ur Squamous Epith Cells 0 SEEN, Urine Bacteria 0 SEEN, Urine Mucus 1+ 12/15/24 20:02: Troponin T Hi Sens 2 Hr 16 Rhythm Strip Rhythm Strip: Sinus Rhythm Rate: 76 Ectopy: None Imaging Radiology Impression Abdomen/Pelvis CT 12/15/24 18:22 IMPRESSION: 1. Pneumoperitoneum, concerning for hollow viscus perforation, possibly of the stomach or transverse colon though source is not definitively identified. 2. Small volume of free fluid in the pelvis and right lower abdominal quadrant. 3. Fat density lesion near the medial aspect of the right gluteal musculature may represent a lipoma. Correlate with exam findings. Red Alert: Pneumoperitoneum The critical findings in the findings and impression above were relayed directly by me by telephone to Josué Villalobos on 12/15/2024 at 7:49 pm with readback verification. Reading Location: [facility] Chest X-Ray 12/15/24 19:34 IMPRESSION: 1. Pneumoperitoneum, better evaluated on concurrent CT abdomen and pelvis. 2. No acute cardiopulmonary abnormality. Reading Location: [facility] Assessment & Plan Assessment/Plan (1) Perforated abdominal viscus: PLAN: The patient came in for severe abdominal pain on the right. He had some nausea and vomiting and thought he had appendicitis. CT scan revealed free air. The radiologist is unsure as to the etiology. The area was centralized in the upper abdomen so there is question if it is coming from the stomach or the colon. I discussed this with the patient in detail and reviewed his CAT scan with him and his family. I discussed having to explore to find a source of the perforation. The patient of note had a CVA during his last surgery in 2023. He has never had any abdominal surgeries in the past. Patient is also on Eliquis and aspirin. I discussed performing exploratory laparoscopy to evaluate the abdomen and try to find the source of the perforation. I discussed the possibility of having to resect colon or small bowel and converting to open surgery. I also explained that if I had to do a colon resection I would likely have to perform a colostomy. The patient is also on Eliquis and aspirin and this puts him at a high bleeding risk for surgery. He will be typed and screened. The patient will receive antibiotics in the emergency room. Plan for emergency surgery this evening. Raj Stevenson MD Pager: [facility] [address] [place] [address], [address] [place] [address] Office:
--- NOTE | 2024-12-15 21:15 | COL_PTH ---
PATIENT: KIEL CARRANZA LOC: [facility] U#:[id number] AGE/SX: 64/M ROOM: KS310 RE12/15/[address]: Dr. Raj Stevenson MD : 1960 BED: 1 DIS: 12/27/2024 SPEC #: [id number] RECD: 12/16/24 07:17 STATUS: CLAUDIO REQ #: [id number] ASHA: 12/15/24 21:[address]: Raj Stevenson DEPT: SURGICAL PATHOLOGY RECD BY: Jonny Roman ENTERED: 12/16/24 09:14 SP TYPE: COLON OTHR DR: MD Dr. Junaid Molina MD Dr. Bruce Arthur, MD Dr. Derek Brown, MD Dr. Trip Chambers Dr., DO Dr. Edward Matheis, MD Dr. Gautam Baskaran, MD Dr. Yordanos Habtegebriel, MD Dr. Hemant Dand, MD Dr. Jose Ochoa, MD Dr. Justin Wong, MD Dr. Kimber Foust, MD Dr. Lamia Aljundi, MD Dr. Marisa Magana, MD Dr. Pritam Ghosh, MD Dr. Pavan Irukulla, MD Dr. Saad Farooqi, MD Dr. Sukhdeep Dhesi, MD Dr. Vernon Hart Dr., MD Dr. Timothy Fernstrom, MD Dr. Juan Miguel Greene Dr., MD Dr. William Lago, MD Tissues: A - Colon, NOS Procedures: Surgery Specimen Level V HEADER OPERATION: Exploratory laparoscopy, converted to open, resection of small bowel PRE-OP DIAGNOSIS: Perforated abdominal viscus, small bowel perforation TISSUE SUBMITTED: A- Small bowel segment *suture vivas site of perforation* MICROSCOPIC DIAGNOSIS A. Segment of small intestine, segmental resection: - Transmural perforation with adjacent mucosal erosion with acute inflammation and peritonitis with fibrovascular adhesions, benign MICROSCOPIC DESCRIPTION Slides are reviewed. GROSS DESCRIPTION A. Received in formalin labeled with the patient's name and date of . Designated as small bowel segment is a 23.5 x 2.0-3.8 cm segment of pink-red, dull small intestinal segment, devoid of orientation. The stapled margins are differentially inked (green/black). There are diffuse, patchy adhesions and exudate on the serosal surface. There is a suture designated as site of perforation with an associated defect expelling fecal material; the sutured defect is inked green. The intestine contains copious amounts of semisolid fecal material within the lumen; the mucosa is predominantly bae-pink and glistening with prominent erythematous granularity and patchy exudate underlying the sutured serosal defect; this area is located approximately 4.9 cm from the closer margin (green). No definitive lesions are identified. Investment Strategist sections are submitted as follows: A1: Margin, shaved, entirely (green)A2: Margin, shaved, senior account representative (black)A3: Sutured defect (green)A4-A5: Erythematous and granular mucosa underlying serosal defectA6: Cross-sections with serosal adhesions/exudate VA 12/16/2024 CPT:08518
--- OUTSIDE RECORDS SUMMARY | 2024-12-15 21:15 | XMS RPT_ITS | CCD ---
Author Organization [facility] Care Team Providers Care Technical Services Librarian Name Role Phone Alyson Arthur MD Primary [...] Emergency Provider Dr. Raj Stevenson Attending Provider Dr. Patrick Sharma Admit Provider Dr. Patrick Sharma Referring Provider Dr. Patrick Sharma Other Provider Dr. Trip Fraire Other Provider Dr. Madhu Smith Other Provider Dr. Trip Fraire Attending Provider Dr. Raj Stevenson Other Provider Dr. Kiel Chacon Attending Provider [phone] JERSON WEIR, ALYSON Primary Care Unavailable BRAYAN AGUILERA, BENJAMIN Consulting Unavailable SCHEATZLE DO, MALIA Admitting Unavailable SCHEATZLE DO, MALIA Attending Unavailable MARRY FRAMEMAN-NOODLE PRESS OPERATOR, DERECK Chavez Consulting Unavaila blanco SINGH DPM, DR ALLISON Bliss Consulting Unatoyin SARAH MD, DR STOUT Consulting Unavailab jenn ARTHUR MD, ALYSON Primary Care Unavailable BRAYAN DO, BENJAMIN Consulting Unavailable SCHEATZLE DO, MALIA Admitting Unavailable SCHEATZLE DO, MALIA Attending Unavailable TUTTLE FRAMEMAN-NOODLE PRESS OPERATOR, DERECK Chavez Consulting Unavaillily BAEZA PhD, EITAN Bautista Consulting Unavailable SAMANTHA DPScott, DR ALLISON Bliss Consulting Elio PATRICK MD, JHOAN Consulting Unavailable JERSON WEIR, ALYSON Primary Care Unavailable BRIANA AGUILERA, ALYSON Admitting Unavailable BRIANA AGUILERA, ALYSON Attending Unavailable ALAN WEIR, GERMAN Consulting Unavailable JERSON WEIR, ALYSON Attending Unavailable JERSON WEIR, ALYSON Primary Care Unavailable Haagen FRAMEMAN.NOODLE PRESS OPERATOR, Angela Unavailable Suppan FRAMEMAN.NOODLE PRESS OPERATOR, Margi A Unavailable Suppan FRAMEMAN.NOODLE PRESS OPERATOR, Margi A Unavailable [phone] BRIANA AGUILERA, ALYSON Attending Unavailable JERSON WEIR, ALYSON Primary Care Unavailable DARNELL WEIR, JHOAN Consulting Unavailable BRIANA AGUILERA, ALYSON Admitting Unavailable ALAN WEIR, GERMAN Consulting Unavailable Suppan FRAMEMAN.NOODLE PRESS OPERATOR, Margi A Unavailable [phone] Dr. Alyson Arthur MD Primary Care Provider [...] Lisinopril Drug Allergy 8 Other: See Comments [facility] Corticosteroids (1 source) fluticasone Drug Allergy 2 Other: See Comments [facility] Penicillins (antibiotic) (1 source) [facility]illins Drug All[facility] (20 sources) Lisinopril; Translations: [LISINOPRIL] Drug Allergy 8 Other: See [facility] Work Phone: (13 sources) Penicillins; Translations: [penicillins] Drug Allergy [facility] Work Phone: (20 sources) Penicillins Drug Allergy [facility] Work Phone: (10 sources) Penicillins Allergy to substance 2 Hives [facility] (20 sources) fluticasone; Translations: [FLUTICASONE PROPIONATE] Drug Allergy 2 Other: See Comments [facility] (8 sources) NASAL SPRAY; Translations: [NASAL SPRAY] Propensity to adverse reactions 3 Chest tightness [facility] (20 sources) Iodinated Contrast Media; Translations: [IODINATED CONTRAST MEDIA] Drug Allergy 4 GI Upset, Other: See Comments [facility] (8 sources) fluticasone; Translations: [fluticasone nasal] Drug Allergy 4 Nosebleed, Nose Bleeds [facility] (18 sources) Penicillins Drug Allergy 1 Rash [facility] (1 source) fluticasone Drug Allergy 4 [facility] Repository (1 source) Lisinopril Drug Allergy 4 [facility] (1 source) Penicillins Drug allergy (disorder) 4 [facility] Repository Medications Current Medications Medication Drug [...] not exceed 5 doses in 24 hours. [id number] 200 actuat albuterol 0.09 mg/actuat metered dose [...] wheezing, # 8 gram(s), 0 Refill(s), Pharmacy: [facility], 155, cm, 04/27/23 19:46:00 EDT, Height, [...] qDay, # 30 tab(s), 0 Refill(s), Pharmacy: [facility], 155, cm, 04/27/23 19:46:00 EDT, Height, [...] BID, # 60 tab(s), 2 Refill(s), Pharmacy: [facility], 155, cm, 04/27/23 19:46:00 EDT, Height, 118, kg, 05/17/23 5:15:00 EDT, Dosing Weight Start Date: 05/19/23 Status: Ordered Start: 04-27-2023 apixaban 5 mg oral tablet Dose : 5 mg = 1 tab(s), Oral, BID, # 60 tab(s), 2 Refill(s), Pharmacy: [facility], 155, cm, 04/23/23 12:45:00 EDT, Height, [...] mg PO DAILY June 22, 2023 12:00am [facility] Start: 04-07-2023 aspirin 81 mg oral tablet, [...] BID, # 120 tab(s), 0 Refill(s), Pharmacy: [facility], 155, cm, 04/27/23 19:46:00 EDT, Height, [...] day. docusate sodium 50 mg / sennosides, fdc 8.6 mg oral tablet (1 source) Start: 05-19-2023 End: 06-03-2023 take 1 tablet by mouth twice daily Senokot S 50 mg-8.6 mg oral tablet Dose = 2 tab(s), Oral, BID, # 60 tab(s), 0 Refill(s), Pharmacy: [facility], 155, cm, 04/27/23 19:46:00 EDT, Height, [...] neuropathy, with long-term current use of insulin ([facility]) DMII, insulin requiring. Testing 3-5 times [...] neuropathy, with long-term current use of insulin ([facility]) DMII, insulin requiring. Testing 3-5 times q day 2 Each 02/08/2024 Active Start: 08-07-2023 End: 02-08-2024 flash glucose sensor (FREEST YLE ANAHI 2 SENSOR) kit Indications: Controlled type 2 diabetes mellitus with diabetic neuropathy, with long-term current use of insulin ([facility]) DMII, insulin requiring. Testing 3-5 times q day 2 Each 08/07/2023 02/08/2024 Discontinued Start: 08-07-2023 flash glucose sensor (FREESTYLE ANAHI 2 SENSOR) kit Indications: Controlled type 2 diabetes mellitus with diabetic neuropathy, with long-term current use of insulin ([facility]) DMII, insulin requiring. Testing 3-5 times q day 2 Each 08/07/2023 Active Start: 10-20-2022 End: 04-07-2023 flash glucose sensor (FREEST YLE ANAHI 2 SENSOR) kit Indications: Controlled type 2 diabetes mellitus with diabetic neuropathy, with long-term current use of insulin ([facility]) Change sensor every 14 days for testing blood sugars 4 times daily or more DX: E11.40 Insulin: YES 6 Each 3 10/20/2022 04/07/2023 Discontinued Start: 10-20-2022 flash glucose sensor (FREESTYLE ANAHI 2 SENSOR) kit Indications: Controlled type 2 diabetes mellitus with diabetic neuropathy, with long-term current use of insulin ([facility]) Change sensor every 14 days for testing blood sugars 4 times daily or more DX: E11.40 Insulin: YES 6 Each 3 10/20/2022 Suspended Start: 10-20-2022 flash glucose sensor (FREESTYLE ANAHI 2 SENSOR) kit Indications: Controlled type 2 diabetes mellitus with diabetic neuropathy, with long-term current use of insulin ([facility]) Change sensor every 14 days for testing blood sugars 4 times daily or more DX: E11.40 Insulin: YES 6 Each 3 10/20/2022 Active Start: 10-05-2022 End: 10-19-2022 flash glucose sensor (FREEST YLE ANAHI 2 SENSOR) kit Indications: Controlled type 2 diabetes mellitus with diabetic neuropathy, with long-term current use of insulin ([facility]) DMII, insulin requiring. Testing 3-5 times q day 2 Each 10/05/2022 10/19/2022 Discontinued Start: 10-05-2022 flash glucose sensor (FREESTYLE ANAHI 2 SENSOR) kit Indications: Controlled type 2 diabetes mellitus with diabetic neuropathy, with long-term current use of insulin ([facility]) DMII, insulin requiring. Testing 3-5 times q day 2 Each 10/05/2022 Active Start: 07-04-2022 End: 10-05-2022 flash glucose sensor (FREEST YLE ANAHI 2 SENSOR) kit Indications: Controlled type 2 diabetes mellitus with diabetic neuropathy, with long-term current use of insulin ([facility]) DMII, insulin requiring. Testing 3-5 times q day 2 Each 07/04/2022 10/05/2022 Discontinued Start: 07-04-2022 flash glucose sensor (FREESTYLE ANAHI 2 SENSOR) kit Indications: Controlled type 2 diabetes mellitus with diabetic neuropathy, with long-term current use of insulin ([facility]) DMII, insulin requiring. Testing 3-5 times q day 2 Each 07/04/2022 Active Start: 11-05-2021 End: 07-04-2022 flash glucose sensor (FREEST YLE ANAHI 2 SENSOR) kit Indications: Controlled type 2 diabetes mellitus with diabetic neuropathy, with long-term current use of insulin ([facility]) DMII, insulin requiring. Testing 3-5 times q day 2 Each 11/05/2021 07/04/2022 Discontinued Start: 11-05-2021 flash glucose sensor (FREESTYLE ANAHI 2 SENSOR) kit Indications: Controlled type 2 diabetes mellitus with diabetic neuropathy, with long-term current use of insulin ([facility]) DMII, insulin requiring. Testing 3-5 times [...] Comment on above: Take 2 tablets by [facility] twice daily. 10 mL by ORAL/FEEDIN G TUBE route every 6 hours. heparin 5000 units/mL injection (1 source) Start: inject 1 dose by subcutaneous injection every eight hours heparin 5000 units/mL injection Dose : 5,000 unit(s) =, Subcutaneous, q8h, mL, 0 Refill(s) Start Date: 04/07/23 Status: Ordered hydrocortisone 10 mg/ml / neomycin 3.5 mg/ml / polymyxin b 27894 unt/ml otic suspension (1 source) Aminoglycoside Antibacterial, [...] acSupper, # 10 mL, 0 Refill(s), Pharmacy: [facility], 155, cm, 04/27/23 19:46:00 EDT, Height, [...] BID, # 60 tab(s), 0 Refill(s), Pharmacy: [facility] #[facility], 155, cm, 04/27/23 19:46:00 EDT, [...] BID, # 43 gram(s), 0 Refill(s), Pharmacy: [facility], Powder, 155, cm, 04/27/23 19:46:00 EDT, [...] tablet by cristina th daily with breakfast. Aa-Qgq-Zhyie-K1-Lycop en-Lutein (Centrum Silver Men) 854-82-175-300 mcg tablet (5 sources) Start: 06-22-2023 Od-Xws-Atztt-K1-Lycopen- Lutein (Roland Doyle) 102-41-009-300 mcg tablet Active 1 {tbl} PO DAILY June 22, 2023 12:00am supplement Start: 06-22-2023 Ks-Qyl-Cqqfl-K 6-Kcthsth-Khafmx (Roland Doyle) 296-08-673-300 mcg tablet Active 1 {tbl} PO DAILY June 22, 2023 12:00am Start: 06-22-2023 take 1 tablet by cristina th once daily Jw-Wln-Jocaf-Z1-Ixnzvwu-Poezyl (Roland Doyle) 972-90-911-300 mcg tablet Active 1 TABLET PO DAILY [...] 1 Drop (AK-DILATE, DREAD-SYNEPHRINE) polyethylene glycol 3350 14555 mg powder for oral solution (20 sources) [...] proparacaine 0.5 % 1 Drop (ALCAINE) sennosides, fdc 1.76 mg/ml oral solution (7 sources) Start: [...] BID, # 6.9 gram(s), 0 Refill(s), Pharmacy: [facility], 155, cm, 04/27/23 19:46:00 EDT, Height, [...] BID, # 56 gram(s), 0 Refill(s), Pharmacy: [facility], 155, cm, 04/27/23 19:46:00 EDT, Height, [...] qDay, # 30 tab(s), 0 Refill(s), Pharmacy: [facility] #[facility], 155, cm, 04/27/23 19:46:00 EDT, [...] on above: Take 1 capsule by mo [facility] three times daily as needed. Blood-Glucose Meter misc (20 sources) Start: 12-21-2015 End: 04-07-2023 Blood-Glucose Meter misc Indications: Type 2 diabetes mellitus without complication, without long-term current use of insulin ([facility]) Dispense 1 kit 1 Each 0 12/21/2015 04/07/2023 Discontinued Start: 12-21-2015 Blood-Glucose Meter misc Indications: Type 2 diabetes mellitus without complication, without long-term current use of insulin ([facility]) Dispense 1 kit 1 Each 0 12/21/2015 Suspended Start: 12-21-2015 Blood-Glucose Meter misc Indications: Type 2 diabetes mellitus without complication, without long-term current use of insulin ([facility]) Dispense 1 kit 1 Each 0 12/21/2015 Active Comment on above: Dispense 1 kit carvedilol 3.125 mg oral tablet (20 sources) alpha-Adrenergic Maren, beta-Adrenergic Mraen Start: 3 End: 4 take 1 tablet [...] Comment on above: Take 1 capsule by [facility] every 12 (twelve) hours. Take 25 mg [...] on above: Take 1 capsule by mo [facility] once daily. 0.5 ml dulaglutide 3 mg/ml auto-injector (20 sources) GLP-1 Receptor Agonist Start: End: dulaglutide (TRULICITY) 1.5 mg/0.5 mL pen injector Indications: Controlled type 2 diabetes mellitus with diabetic neuropathy, with long-term current use of insulin ([facility]) Inject 3 mg subcutaneously one time [...] neuropathy, with long-term current use of insulin ([facility]) Inject 3 mg subcutaneously one time a week. 2 mL 11 11/12/2021 11/12/2022 Active Comment on above: Inject 3 mg subcutan eously one time a week. ergocalciferol 1.25 mg oral capsule (20 sources) Provitamin D2 Compound Start: 10-09-2022 End: 06-22-2023 Ergocalciferol (Vitamin D2) (Vitamin D2) 1,250 mcg (50,000 unit) capsule Discontinued 42522 U PO .SUNDAY October 09, 2022 12:00am [...] 20 mg capsule Indications: Bipolar 1 disorder ([facility]) Take 1 capsule by mouth once [...] Daily, # 10 mL, 0 Refill(s), Pharmacy: [facility], 155, cm, 04/27/23 19:46:00 EDT, Height, [...] as dir ected every 24 hours. nystatin [id number] unt/ml oral suspension (2 sources) Polyene Antifungal [...] Comment on above: [facility]. predniSONE 50 mg oral tablet [...] once daily. take 2 tablets by mo [facility] in the morning propylene glycol 6 mg/ml [...] Coronary arteriosclerosis; Translations: [Atherosclerotic heart disease of [place] coronary artery without angina pectoris] 03-20-2023 Chronic [...] [Other residential (current) drug therapy] Episodic Other aftercare (2 sources) Long-term current use of insulin; Translations: [jail (current) use of insulin] Episodic Other aftercare (1 source) Long-term current use of aspirin; Translations: [terminal operator (current) use of aspirin] Episodic Other aftercare (2 sources) Long-term current use of drug therapy; Translations: [Other residential (current) drug therapy] Episodic Other aftercare (2 sources) Long-term current use of anticoagulant; Translations: [jail (current) use of anticoagulants] Episodic Other and [...] aftercare (20 sources) Insulin dose changed; Translations: [terminal operator (current) use of insulin] Onset: 4 03-25-2023 Episodic Other aftercare (2 sources) terminal operator (current) use of insulin; Translations: [Controlled type 2 diabetes mellitus with diabetic neuropathy, with long-term current use of insulin (HCC)] Onset: 4 Episodic Other aftercare (1 source) terminal operator (current) use of anticoagulants; Translations: [Chronic anticoagulation] [...] Office Visit (VASSWS ) -- KIEL CATHERINE ([id number]) 1960 M Date Time Provider Department 11/05/24 1:30 PM FRANKLIN ESPINAL During your visit today, we recorded the following information about you: Pulse Blood pressure 69/minute 119/74 Franklin Espinal DO 11/05/2024 3:24 PM [facility] Heart, Vascular [facility] Thoracic [place] DEPARTMENT OF VASCULAR SURGERY OUTPATIENT VISIT DATE November 05, 2024 OUTPATIENT VISIT TYPE CONSULTATION SERVICE DATE: 11/05/2024 SERVICE TIME: 1:42 PM PRIMARY CARE PHYSICIAN: Alyson Arthur MD REFERRING PROVIDER: Angela Schmid [address] [facility] [place] [address] Consult requested for an opinion regarding the [...] Diagnosis Date Acute ischemic left MCA stroke ([facility]) 03/22/2023 Anxiety Aortic valve stenosis, nonrheumatic Atrial septal defect and mitral stenosis ([facility]) Bicuspid aortic valve ([facility]) Bipolar 1 disorder ([facility]) Chronic obstructive pulmonary disease (COPD) ([facility]) Coronary artery disease Degenerative disc disease sees Dr. Sellers Diabetic neuropathy ([facility]) DM (diabetes mellitus) ([facility]) HTN (hypertension) Hyperkalemia Hyperlipidemia Hypogonadism male LVH (left ventricular hypertrophy) Morbid obesity ([facility]) MANISH on CPAP Pain management Dr. [...] Disease Brother other (Myocardial infarc) Brother Fatal [place] No Ocular Disease No Family History MEDICATIONS: [...] NEEDLE) 31 (more content not included)... Normal [facility] PVR ANK PRESS SOY VAS LABon 10-30-2024 PVR ANK PRESS SOY VAS LAB Non-Invasive Vascular Laboratory [facility] Lower Extremity Arterial Physiology Study Bilateral/Complete [...] physician: Sumit Johnston MD, BURT Final CC [employer] : [id number] See Link below for Image Normal [facility] US CAROTID ARTERIES SOY VAS LABon 10-30-2024 US CAROTID ARTERIES SOY VAS LAB Non-Invasive Vascular Laboratory [facility] Carotid Duplex Bilateral/Complete Date of service/time: [...] interpretation criteria are used as recommended by [facility] Acc[facility]. Technically difficult exam due to [...] physician: Sumit Johnston MD, BURT Final CC [employer] : [id number] See Link below for Image Normal [facility] [place] 09-27-2024 TODDN Telephone (ZonesS) -- KIEL CATHERINE ([id number]) 1960 M Date Time Provider Department 09/27/24 [...] Date Reviewed: 09/09/2024 Reviewed by: Amauri Jo APRN.NOODLE PRESS OPERATOR - Fully Assessed Reason for Visit: Appointment [...] index (BM* (more content not included)... Normal [facility] [place] 09-10-2024 TREVOR Telephone (AGCARDPOB ) -- KIEL CATHERINE ([id number]) 1960 M Date Time Provider Department 09/10/24 KATHY COLBERT During your visit today, we recorded the following information about you: Noni Ring 09/10/2024 3:11 PM Signed Spouse, Shweta, contacted [facility] stating patient was received instructions from [employer] pullman car clerk, Amauri Jo CNP, to follow up with a software packager and possibly vascular specialist. Patient is wanting to continue cardiology care under Kathy Colbert CNP. Patient last saw Gemma 05/23/22. PSS notified patient that she is no longer at [place] but would send a message seeing if she is willing to see him or if he needs to establish with an MD. Please contact spouse to advise ph. [phone] . Philippe Singletary 09/11/2024 12:57 PM Signed LVM and scheduled overdue follow up for 12/17/24 at 3:[address] Valente in [place]. Thanks, Philippe Singletary Allergies As of Date: [...] 180 days. - flash glucose scanning reader (SkuServeSTYLE ANAHI 2 READER) DMII, insulin requiring. Testing [...] (more content not included)... Normal [facility] CNOVon 09-09-2024 CNOV Office Visit (PULMWS ) -- KIEL CATHERINE ([id number]) 1960 M Date Time Provider Department 09/09/24 11:00 AM AMAURI JO PULELIUD During your visit today, we recorded the following information about you: Pulse Respiration Blood pressure Weight 64/minute 16/minute 138/82 113.4 kg Height 1.549 m Amauri Jo APRN.CNP 09/09/2024 12:44 PM Signed [facility] Lung Cancer Screening Annual Visit Current [...] other counseling during this visit. Amauri Jo APRN.[facility] -- History of Present Illness: [...] has not had a follow-up with a software packager since the surgery due to a canceled appointment and difficulty scheduling. He denies dyspnea, hemoptysis, wheezing, or recent chest colds or infections. He reports occasional coughing, which he attributes to his smoking habit of approximately 3/4 pack per day. He notes that his breathing is not 100%, but considers it good for someone who smokes. He has not seen a pullman car clerk since his surgery. He mentions a previous [...] Use Smokin (more content not included)... Normal [facility] CT LUNG SCREEN WO IVCONon CT LUNG SCREEN WO IVCON * * *Final Report* * * DATE OF EXAM: Sep 09 2024 10:38AM [facility] 0562 - CT LUNG SCREEN WO [...] without contrast. MQ: CTLCS_6 Patient characteristics: * Dpsy-np-Yhxdq: 1960; Age at exam: 63 years * Gender: Male * Lung Disease: Asymptomatic (no signs or symptoms of lung disease) * Number of Pack Years: 34 * Current smoker (=0) or Number of Years since Quit: 0 * Ordering provider and NPI: TONY MAJANO [id number] * Interpreting radiologist and NPI: Elmer [id number] Exam acquisition parameters: * Exam Date: 09/09/2024 10:38 AM * Site: [facility] * * CT System Building Energy Consultant: Siemens * CT System Model: Sensation * [...] screening with LDCT in 12 months. Reference: [employer]. Lung CT Screening Reporting and Data System (Lung-RADS). Available at: http://www.acr.org/Quality -Safety/Resources/LungRADS Global Program Manager: TOMMY Transcribe Date/Time: Sep 10 2024 11:00A Dictated by : RICHARD BRYSON MD This examination was interpreted and the report reviewed and electronically signed by: RICHARD BRYSON MD on Sep 10 2024 11:19AM EST [id number] Normal [facility] L3410.9992on 08-26-2024 [facility] Misc. Normal [facility] Comment on above: Order Comment: [id number] URINE TOX RT Result Comment: TEST RESULTS LIMITS [id number] 9 Drug-Unb Amphetamines, Urine Negative ng/mL Glnpqg=3583 Amphetamine test includes Amphetamine and Methamphetamine. Barbiturate Negative ng/mL Nfigda=051 Benzodiazepines Negative ng/mL Mhylez=774 Cannabinoid Negative ng/mL Refdpf=398 Cocaine (Metab.) Negative ng/mL Rbphin=264 Opiates Negative ng/mL Sopcip=717 Opiate test includes Codeine and Morphine only. Phencyclidine Negative ng/mL Cutoff=25 Methadone Screen, Urine Negative ng/mL Wfeewp=995 Propoxyphene, Urine Negative ng/mL Urnxxe=496 TESTING PERFORMED AT [facility]. ORIGINAL REPORT ON FILE IN LAB CONTAINS ADDITIONAL TEST SITE INFORMATION. Performed By: #### L 505.5000, L3410.9992 ####[facility] [address] [facility] [address] Amphetamine detection with 1 000 ng/mL as cutoffOrdered By: Walter Sellers on 08-21-2024 Amphetamines Screen method >1000 ng/mL Ql (U) Negative < 200 ng/mL [facility] No Panel InformationOrdered By: Walter Sellers on 08-21-2024 Urine Buprenorphine Qualitative Negative < 200 ng/mL [facility] Urine Oxycodone Screen Positive < 100 ng/mL [facility] Comment on above: If confirmation test ing is needed, a separate order will be required to send out testing to the reference laboratory. Quantitative urine opiates m easurementOrdered By: Walter Sellers on 08-21-2024 Opiates Ql (U) Negative < 300 ng/mL [facility] Screening urine fentanyl kenneth surementOrdered By: Walter Sellers on 08-21-2024 fentaNYL Screen Ql (U) Negative [facility] Urine Drug Screen (VISTA)on 08-21-2024 AMPHETAMINES Negative Normal <1000 ng/mL [facility] Comment on above: Order Comment: UNK Performed By: #### L 505.5000, L3410.9992 ####[facility] [address] [place], [place], [id number] BARBITIURATES Negative Normal < 200 ng/mL [facility] Comment on above: Order Comment: UNK Performed By: #### L 505.5000, L3410.9992 ####[facility] [address] [place], [address] BENZODIAZIPINE Negative Normal < 200 ng/mL [facility] Comment on above: Order Comment: UNK Performed By: #### L 505.5000, L3410.9992 ####[facility] [address] [place], [address] BUP Ur Drug Scr Negative Normal < 200 ng/mL [facility] Comment on above: Order Comment: UNK Performed By: #### L 505.5000, L3410.9992 ####[facility] [address] [place], [address] COCAINE Negative Normal < 300 ng/mL [facility] Comment on above: Order Comment: UNK Performed By: #### L 505.5000, L3410.9992 ####[facility] [address] [place], [address] Fentanyl Negative Normal [facility] Comment on above: Order Comment: UNK Performed By: #### L 505.5000, L3410.9992 ####[facility] [address] [place], [address] METHADONE Negative Normal < 300 ng/mL [facility] Comment on above: Order Comment: UNK Performed By: #### L 505.5000, L3410.9992 ####[facility] [facility] [address] [place], [address] OPIATES Negative Normal < 300 ng/mL [facility] Comment on above: Order Comment: UNK Performed By: #### L 505.5000, L3410.9992 ####[facility] [address] [place], [address] OXYCODONE Positive Normal < 100 ng/mL [facility] Comment on above: Order Comment: UNK Result Comment: If c onfirmation testing is needed, a separate order will be required to send out testing to the reference laboratory. Performed By: #### L 505.5000, L3410.9992 ####[facility] [address] [place], [place], [address] PCP Negative Normal < 25 ng/mL [facility] Comment on above: Order Comment: UNK Performed By: #### L 505.5000, L3410.9992 ####[facility] [address] [place], [address] THC Negative Normal < 50 ng/mL [facility] Comment on above: Order Comment: UNK Performed By: #### L 505.5000, L3410.9992 ####[facility] [address] [place], [place], [address] Urine benzodiazepine levelOr dered By: Walter Sellers on 08-21-2024 Benzodiazepines Ql (U) Negative < 200 ng/mL [facility] Urine cocaine levelOrdered B y: Walter Sellers on 08-21-2024 Cocaine Ql (U) Negative < 300 ng/mL [facility] Urine kjhlh-2-uaqcahprmcchcu abinol (THC) measurementOrdered By: Walter Sellers on 08-21-2024 Cannabinoids Screen Ql (U) Negative < 50 ng/mL [facility] Urine phencyclidine (PCP) de tectionOrdered By: Walter Sellers on 08-21-2024 Phencyclidine Ql (U) Negative < 25 ng/mL [facility] KIEL CATHERINE ([id number]) 1960 [place] Date Time Provider Department 08/13/24 [...] mLRfl: 0 Prescriptions as of 08/13/2024 - pntreqwu-hyypsjybh-blidxfa rtisone (CORTISPORIN) 3.5-10,000-1 mg/mL-unit/mL-% otic suspension Use [...] 180 days. - flash glucose scanning reader (SkuServeSTYLE ANAHI 2 READER) DMII, insulin requiring. Testing [...] LVH (left (more content not included)... Normal [facility] Comprehensive metabolic 2000 panelon 08-08-2024 Albumin [Mass/Vol] 4 g/dL 3.9 - 4.9 g/dL [facility] ALP [Catalytic activity/Vol] 119 U/L High 38 - 113 U/L [facility] ALT [Catalytic activity/Vol] 12 U/L 10 - 54 U/L [facility] Anion gap [Moles/Vol] 13 mmol/L 8 - 15 mmol/L [facility] AST [Catalytic activity/Vol] 14 U/L 14 - 40 U/L [facility] Bilirubin [Mass/Vol] 0.5 mg/dL 0.2 - 1 .3 mg/dL [facility] Calcium [Mass/Vol] 9.2 mg/dL 8.5 - 10. 2 mg/dL [facility] Chloride [Moles/Vol] 102 mmol/L 98 - 10 7 mmol/L [facility] CO2 [Moles/Vol] 25 mmol/L 22 - 30 mmol/L [facility] Creatinine [Mass/Vol] 0.8 mg/dL 0.73 - 1.22 mg/dL [facility] GFR/1.73 sq M.predicted among non-blacks MDRD (S/P/Bld) [Vol rate/Area] 100 mL/min/{1.73_m2} - PINF [facility] Comment on above: Estimated Glomerular Filtration [...] 190 mg/dL High 74 - 99 mg/dL [facility] Comment on above: The [place] Diab[employer] s Association (ADA) provides guidance for [...] Standards of Medical Care in Diabetes 2016, [place] [employer]. Diabetes Care. 2016.39(Suppl 1). Potassium [Moles/Vol] 4.5 mmol/L 3.7 - 5.1 mmol/L [facility] Protein [Mass/Vol] 6.7 g/dL 6.3 - 8.0 g/dL [facility] Sodium [Moles/Vol] 140 mmol/L 136 - 144 mmol/L [facility] Urea nitrogen [Mass/Vol] 20 mg/dL 9 - 24 mg/dL [facility] Lipid 1996 panelon 5 Cholesterol [Mass/Vol] 136 mg/dL NINF - 200 mg/dL [facility] Comment on above: <200 mg/dL, Desirabl e 200-239 mg/dL, Borderline high >239 mg/dL, High Cholesterol in HDL [Mass/Vol] 33 mg/dL Low 39 - PINF mg/dL [facility] Comment on above: 40-59 mg/dL, Accepta ble >59 mg/dL, High: Negative risk factor for coronary heart disease <40 mg/dL, Low: Positive risk factor for coronary heart disease Cholesterol in LDL [Mass/Vol] 76 mg/dL NINF - 100 mg/dL [facility] Comment on above: <100 mg/dL, Optimal 100-129 mg/dL, Near optimal/above optimal 130-159 mg/dL, Borderline high 160-189 mg/dL, High >189 mg/dL, Very high Secondary prevention optimal LDL Cholesterol levels are recommended to be <70 mg/dL LDL cholesterol is calculated using the Wright-NIH equation. Cholesterol in LDL/Cholesterol in HDL [Mass ratio] 2.3 {ratio} NINF - 2.54 [facility] Comment on above: Reference: 1. National Cholesterol Education Program ATP III Guideline At-A-Glance Quick Desk Reference: National Heart, Lung, and Blood [place]. National Institutes of Health. 2001: NIH Publication No. 01-3305. 2. An International Atherosclerosis Society position paper: global recommendations for the management of dyslipidemia: executive summary, Atherosclerosis. 2014: 232(2):410-413. Cholesterol in VLDL [Mass/Vol] 24 mg/dL NINF - 30 mg/dL [facility] Cholesterol non HDL [Mass/Vol] 103 mg/dL NINF - 130 mg/dL [facility] Comment on above: <130 mg/dL, Optimal 130-159 mg/dL, Near optimal/above optimal 160-189 mg/dL, Borderline high 190-219 mg/dL, High >219 mg/dL, Very high Secondary prevention optimal non HDL Cholesterol levels are recommended to be <100 mg/dL Cholesterol.total/Chol esterol in HDL [Mass ratio] 4.12 {ratio} NINF - 5.10 [facility] Fasting Time 12 hrs [facility] Triglyceride [Mass/Vol] 157 mg/dL High NINF - 150 mg/dL [facility] Comment on above: <150 mg/dL, Normal 150-199 mg/dL, Borderline high 200-499 mg/dL, High >499 mg/dL, Very high No Panel Informationon 08-08 Interpretation and review of laboratory results Abnormal [facility] PSA/PROSTATE SPECIFIC ANTIGE N SCREENINGon 08-08-2024 Interpretation and review of laboratory results Normal [facility] Prostate specific Ag [Mass/Vol] 0.16 ng/mL [facility] - 2.60 ng/mL [facility] Comment on above: Total PSA test metho dology used is the Electrochemiluminescence Immunoassay by [employer]. Total PSA values by differing methodologies cannot be interchanged. [facility] CBC W Auto Differential pane l (Bld)on 08-07-2024 Basophils (Bld) [#/Vol] 0.07 10*3/uL [facility] Basophils/100 WBC (Bld) 0.7 % [facility] Differential cell count method Nom (Bld) Auto [facility] Eosinophils (Bld) [#/Vol] 0.08 10*3/uL [facility] Eosinophils/100 WBC (Bld) 0.8 % [facility] Erythrocyte distribution width (RBC) [Ratio] 12.6 % 11.5 - 15.0 % [facility] Hematocrit (Bld) [Volume fraction] 49.7 % 39.0 - 51.0 % [facility] Hemoglobin (Bld) [Mass/Vol] 16.7 g/dL 13.0 - 17.0 g/dL [facility] Immature granulocytes (Bld) [#/Vol] 0.05 10*3/uL [facility] Immature granulocytes/100 WBC (Bld) 0.5 % [facility] Interpretation and review of laboratory results Abnormal [facility] Lymphocytes (Bld) [#/Vol] 1.81 10*3/uL [facility] Lymphocytes/100 WBC (Bld) 17.1 % [facility] MCH (RBC) [Entitic mass] 30 pg 26.0 - 34.0 pg [facility] MCHC (RBC) [Mass/Vol] 33.6 g/dL 30.5 - 36.0 g/dL [facility] MCV (RBC) [Entitic vol] 89.2 fL 80.0 - 100.0 fL [facility] Monocytes (Bld) [#/Vol] 0.83 10*3/uL [facility] Monocytes/100 WBC (Bld) 7.9 % [facility] Neutrophils (Bld) [#/Vol] 7.72 10*3/uL High [facility] Neutrophils/100 WBC (Bld) 73 % [facility] Nucleated RBC (Bld) [#/Vol] NINF [facility] Nucleated RBC/100 WBC (Bld) [Ratio] 0 % /100 WBC [facility] Platelet mean volume (Bld) [Entitic vol] 12.4 fL 9.0 - 12.7 fL [facility] Platelets (Bld) [#/Vol] 189 10*3/uL [facility] RBC (Bld) [#/Vol] 5.57 10*6/uL 4.20 - 6.00 m/uL [facility] WBC (Bld) [#/Vol] 10.56 10*3/uL [facility] Basophils (Bld) [#/Vol] 0.07 10*3/uL Normal <0.11 [facility] Comment on above: Order Comment: Speci men Type: BLOOD SPECIMENOrdering Facility: [facility] Address: [address] [place] [address] Performed By: #### 5 7021-8 ####[facility] LABIA [id number] [address] STATES OF [facility] Basophils/100 WBC (Bld) 0.7 % Normal [facility] Comment on above: Order Comment: Speci men Type: BLOOD SPECIMENOrdering Facility: [facility] Address: [address] [place] [address] Performed By: #### 5 7021-8 ####[facility] LABCLIA [id number] [place] [address] [place] Differential cell count method Nom (Bld) Auto Normal [facility] Comment on above: Order Comment: Speci men Type: BLOOD SPECIMENOrdering Facility: [facility] Address: [address] [place] [address] Performed By: #### 5 7021-8 ####[facility] LABCLIA [id number] [address] [place] Eosinophils (Bld) [#/Vol] 0.08 10*3/uL Normal <0.46 [facility] Comment on above: Order Comment: Speci men Type: BLOOD SPECIMENOrdering Facility: [facility] Address: [address] [place] [address] Performed By: #### 5 7021-8 ####[facility] LABCLIA [id number] [place] [address] [place] Eosinophils/100 WBC (Bld) 0.8 % Normal [facility] Comment on above: Order Comment: Speci men Type: BLOOD SPECIMENOrdering Facility: [facility] Address: [address] [place] [address] Performed By: #### 5 7021-8 ####[facility] LABCLIA [id number] [place] [address] [place] Erythrocyte distribution width (RBC) [Ratio] 12.6 % Normal 11.5-15.0 [facility] Comment on above: Order Comment: Speci men Type: BLOOD SPECIMENOrdering Facility: [facility] Address: [address] [place] [address] Performed By: #### 5 7021-8 ####[facility] LABCLIA [id number] [address] [place] Hematocrit (Bld) [Volume fraction] 49.7 % Normal 39.0-51.0 [facility] Comment on above: Order Comment: Speci men Type: BLOOD SPECIMENOrdering Facility: [facility] Address: [address] [place] [address] Performed By: #### 5 7021-8 ####[facility] LABCLIA [id number] [place] [address] [place] Hemoglobin (Bld) [Mass/Vol] 16.7 g/dL Normal 13.0-17.0 [facility] Comment on above: Order Comment: Speci men Type: BLOOD SPECIMENOrdering Facility: [facility] Address: [address] [place] [address] Performed By: #### 5 7021-8 ####[facility] LABCLIA [id number] [place] [address] [place] Immature granulocytes (Bld) [#/Vol] 0.05 10*3/uL Normal <0.10 [facility] Comment on above: Order Comment: Speci men Type: BLOOD SPECIMENOrdering Facility: [facility] Address: [address] [place] [address] Performed By: #### 5 7021-8 ####[facility] LABCLIA [id number] [place] [address] [place] Immature granulocytes/100 WBC (Bld) 0.5 % Normal [facility] Comment on above: Order Comment: Speci men Type: BLOOD SPECIMENOrdering Facility: [facility] Address: [address] [place] [address] Performed By: #### 5 7021-8 ####[facility] LABIA [id number] [place] [address] [place] Lymphocytes (Bld) [#/Vol] 1.81 10*3/uL Normal 1.00-4.00 [facility] Comment on above: Order Comment: Speci men Type: BLOOD SPECIMENOrdering Facility: [facility] Address: [address] [place] [address] Performed By: #### 5 7021-8 ####[facility] LABCLIA [id number] [place] [address] [place] Lymphocytes/100 WBC (Bld) 17.1 % Normal [facility] Comment on above: Order Comment: Speci men Type: BLOOD SPECIMENOrdering Facility: [facility] Address: [address] [place] [address] Performed By: #### 5 7021-8 ####[facility] LABCLIA [id number] [address] [place] MCH (RBC) [Entitic mass] 30.0 pg Normal 26.0-34.0 [facility] Comment on above: Order Comment: Speci men Type: BLOOD SPECIMENOrdering Facility: [facility] Address: [address] [place] [address] Performed By: #### 5 7021-8 ####[facility] LABIA [id number] [place] [address] [place] MCHC (RBC) [Mass/Vol] 33.6 g/dL Normal 30.5-36.0 [facility] Comment on above: Order Comment: Speci men Type: BLOOD SPECIMENOrdering Facility: [facility] Address: [address] [place] [address] Performed By: #### 5 7021-8 ####[facility] LABCLIA [id number] [place] [address] [place] MCV (RBC) [Entitic vol] 89.2 fL Normal 80.0-100.0 [facility] Comment on above: Order Comment: Speci men Type: BLOOD SPECIMENOrdering Facility: [facility] Address: [address] [place] [address] Performed By: #### 5 7021-8 ####[facility] LABIA [id number] [place] [address] [place] Monocytes (Bld) [#/Vol] 0.83 10*3/uL Normal <0.87 [facility] Comment on above: Order Comment: Speci men Type: BLOOD SPECIMENOrdering Facility: [facility] Address: [address] [place] [address] Performed By: #### 5 7021-8 ####[facility] LABCLIA [id number] [place] [address] [place] Monocytes/100 WBC (Bld) 7.9 % Normal [facility] Comment on above: Order Comment: Speci men Type: BLOOD SPECIMENOrdering Facility: [facility] Address: [address] [place] [address] Performed By: #### 5 7021-8 ####[facility] LABCLIA [id number] [place] [address] [place] Neutrophils (Bld) [#/Vol] 7.72 10*3/uL High 1.45-7.50 [facility] Comment on above: Order Comment: Speci men Type: BLOOD SPECIMENOrdering Facility: [facility] Address: [address] [place] [address] Performed By: #### 5 7021-8 ####[facility] LABCLIA [id number] [place] [address] [place] Neutrophils/100 WBC (Bld) 73.0 % Normal [facility] Comment on above: Order Comment: Speci men Type: BLOOD SPECIMENOrdering Facility: [facility] Address: [address] [place] [address] Performed By: #### 5 7021-8 ####[facility] LABCLIA [id number] [place] [address] [place] Nucleated RBC (Bld) [#/Vol] 10*3/uL Normal <0.01 [facility] Comment on above: Order Comment: Speci men Type: BLOOD SPECIMENOrdering Facility: [facility] Address: [address] [place] [address] Performed By: #### 5 7021-8 ####[facility] LABCLIA [id number] [place] [id number] [place] Nucleated RBC/100 WBC (Bld) [Ratio] 0.0 /100 WBC Normal [facility] Comment on above: Order Comment: Speci men Type: BLOOD SPECIMENOrdering Facility: [facility] Address: [address] [place] [address] Performed By: #### 5 7021-8 ####[facility] LABCLIA [id number] [address] [place] [address] [place] Platelet mean volume (Bld) [Entitic vol] 12.4 fL Normal 9.0-12.7 [facility] Comment on above: Order Comment: Speci men Type: BLOOD SPECIMENOrdering Facility: [facility] Address: [address] [place] [address] Performed By: #### 5 7021-8 ####[facility] LABCLIA [id number] [place] [address] [place] Platelets (Bld) [#/Vol] 189 10*3/uL Normal 150-400 [facility] Comment on above: Order Comment: Speci men Type: BLOOD SPECIMENOrdering Facility: [facility] Address: [address] [place] [address] Performed By: #### 5 7021-8 ####[facility] LABIA [id number] [place] [address] [place] RBC (Bld) [#/Vol] 5.57 10*6/uL Normal 4.20-6.00 [facility] Comment on above: Order Comment: Speci men Type: BLOOD SPECIMENOrdering Facility: [facility] Address: [address] [place] [address] Performed By: #### 5 7021-8 ####[facility] LABCLIA [id number] [place] [id number] [place] WBC (Bld) [#/Vol] 10.56 10*3/uL Normal 3.70-11.00 [facility] Comment on above: Order Comment: Speci men Type: BLOOD SPECIMENOrdering Facility: [facility] Address: [address] [place] [address] Performed By: #### 5 7021-8 ####[facility] LABCLIA [id number] [place] [id number] [place] CNOVon 08-07-2024 CNOV Office Visit (FAMPWS ) -- KIEL CATHREINE ([id number]) 1960 M Date Time Provider Department 08/07/24 9:20 AM [facility] During your visit today, we recorded [...] feet. 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 Ear Discomfort: - Reports feeling of swelling [...] Diagnosis Date Acute ischemic left MCA stroke ([facility]) 03/22/2023 Anxiety Aortic valve stenosis, nonrheumatic Atrial septal defect and mitral stenosis ([facility]) Bicuspid aortic valve ([facility]) Bipolar 1 disorder ([facility]) Chronic obstructive pulmonary disease (COPD) ([facility]) Coronary artery disease Degenerative disc disease sees Dr. Sellers Diabetic neuropathy ([facility]) DM (diabetes mellitus) ([facility]) HTN (hypertension) Hyperkalemia Hyperlipidemia Hypogonadism male LVH (left ventricular hypertrophy) Morbid obesity ([facility]) MANISH on CPAP Pain management Dr. [...] at bedtime (more content not included)... Normal [facility] Comprehensive metabolic 2000 panelon 08-07-2024 Albumin [Mass/Vol] 4.0 g/dL Normal 3.9-4.9 [facility] Comment on above: Order Comment: Speci men Type: BLOOD SPECIMENOrdering Facility: [facility] Address: [address] [place] [address] Performed By: #### 2 4323-8, 37918-1 ####[facility] LABCLIA [id number] [place] [address] [place] ALP [Catalytic activity/Vol] 119 U/L High 38-113 [facility] Comment on above: Order Comment: Speci men Type: BLOOD SPECIMENOrdering Facility: [facility] Address: [address] [place] [address] Performed By: #### 2 4323-8, 74949-2 ####[facility] LABIA [id number] [place] [address] [place] ALT [Catalytic activity/Vol] 12 U/L Normal 10-54 [facility] Comment on above: Order Comment: Speci men Type: BLOOD SPECIMENOrdering Facility: [facility] Address: [address] [place] [address] Performed By: #### 2 4323-8, 20290-9 ####[facility] LABCLIA [id number] [address] [address] [place] Anion gap [Moles/Vol] 13 mmol/L Normal 8-15 [facility] Comment on above: Order Comment: Speci men Type: BLOOD SPECIMENOrdering Facility: [facility] Address: [address] [place], [place] [address] Performed By: #### 2 4323-8, 18063-5 ####[facility] LABCLIA [id number] [place] [id number] [place] AST [Catalytic activity/Vol] 14 U/L Normal 14-40 [facility] Comment on above: Order Comment: Speci men Type: BLOOD SPECIMENOrdering Facility: [facility] Address: [address] [place], [place] [address] Performed By: #### 2 4323-8, 30620-2 ####[facility] LABCLIA [id number] [place] [id number] [place] Bilirubin [Mass/Vol] 0.5 mg/dL Normal 0.2-1.3 [facility] Comment on above: Order Comment: Speci men Type: BLOOD SPECIMENOrdering Facility: [facility] Address: [address] [place], [place] [address] Performed By: #### 2 4323-8, 53277-9 ####[facility] LABCLIA [id number] [address] [address] [place] Calcium [Mass/Vol] 9.2 mg/dL Normal 8.5-10.2 [facility] Comment on above: Order Comment: Speci men Type: BLOOD SPECIMENOrdering Facility: [facility] Address: [address] [place], [place] [address] Performed By: #### 2 4323-8, 34019-6 ####[facility] LABCLIA [id number] [address] [address] [place] Chloride [Moles/Vol] 102 mmol/L Normal 98-107 [facility] Comment on above: Order Comment: Speci men Type: BLOOD SPECIMENOrdering Facility: [facility] Address: [address] [place] [address] Performed By: #### 2 4323-8, 54321-7 ####[facility] LABIA [id number] [place] [id number] [place] CO2 [Moles/Vol] 25 mmol/L Normal 22-30 [facility] Comment on above: Order Comment: Speci men Type: BLOOD SPECIMENOrdering Facility: [facility] Address: [address] [place] [address] Performed By: #### 2 4323-8, 16567-6 ####[facility] LABIA [id number] [place] [address] [place] Creatinine [Mass/Vol] 0.80 mg/dL Normal 0.73-1.22 [facility] Comment on above: Order Comment: Speci men Type: BLOOD SPECIMENOrdering Facility: [facility] Address: [address] [place] [address] Performed By: #### 2 4323-8, 29973-7 ####[facility] [id number] [place] [address] [place] [facility] Creatinine and Glomerular filtration rate.predicted panel (S/P/Bld) 100 mL/min/1.73m??? Normal >=60 [facility] Comment on above: Order Comment: Speci men Type: BLOOD SPECIMENOrdering Facility: [facility] Address: [address] [place] [address] Result Comment: Stephanie mated Glomerular Filtration Rate [...] actual GFR. Performed By: #### 2 4323-8, ####[facility] LABCLIA [id number] [address] [address] [place] Glucose [Mass/Vol] 190 mg/dL High 74-99 [facility] Comment on above: Order Comment: Sylvia doyle Type: BLOOD SPECIMENOrdering Facility: [facility] Address: [address] [place] [address] Result Comment: The [place] [employer] (ADA) provides guidance for cutoff [...] Standards of Medical Care in Diabetes 2016, [place] [employer]. Diabetes Care. 2016.39(Suppl 1). Performed By: #### 2 4323-8, ####[facility] LABCLIA [id number] [facility] [address] [address] [place] Potassium [Moles/Vol] 4.5 mmol/L Normal 3.7-5.1 [facility] Comment on above: Order Comment: Sylvia doyle Type: BLOOD SPECIMENOrdering Facility: [facility] Address: [address] [place] [address] Performed By: #### 2 4323-8, ####[facility] LABCLIA [id number] [facility] [address] [address] [place] Protein [Mass/Vol] 6.7 g/dL Normal 6.3-8.0 [facility] Comment on above: Order Comment: Speci men Type: BLOOD SPECIMENOrdering Facility: [facility] Address: [address] [place] [address] Performed By: #### 2 4323-8, 94861-3 ####[facility] LABCLIA [id number] [address] [address] [place] Sodium [Moles/Vol] 140 mmol/L Normal 136-144 [facility] Comment on above: Order Comment: Speci men Type: BLOOD SPECIMENOrdering Facility: [facility] Address: [address] [place] [address] Performed By: #### 2 4323-8, 87811-7 ####[facility] LABCLIA [id number] [place] [address] [place] Urea nitrogen [Mass/Vol] 20 mg/dL Normal 9-24 [facility] Comment on above: Order Comment: Speci men Type: BLOOD SPECIMENOrdering Facility: [facility] Address: [address] [place] [address] Performed By: #### 2 4323-8, 09397-1 ####[facility] LABIA [id number] [place] [address] [place] HbA1c (Bld)on 08-07-2024 Average glucose Estimated from glycated hemoglobin (Bld) [Mass/Vol] 186 mg/dL Normal [facility] Comment on above: Order Comment: Speci men Type: BLOOD SPECIMENOrdering Facility: [facility] Address: [address] [place] [address] Result Comment: eAG: (Estimated average glucose) is a calculated value from HgbA1c and is outbound telemarketing representative of the average blood glucose level in the last 2-3 month period. Performed By: #### 5 5454-3 ####[facility] LABCLIA [id number] [address] [address] [place] HbA1c (Bld) [Mass fraction] 8.1 % High 4.3-5.6 [facility] Comment on above: Order Comment: Breannei men Type: BLOOD SPECIMENOrdering Facility: [facility] Address: [address] [place] [address] Result Comment: Amer ican Diabetes Association guidelines indicate that patients with HgbA1c in the range 5.7-6.4% are at increased risk for development of diabetes, and intervention by lifestyle modification may be beneficial. HgbA1c greater or equal to 6.5% is considered diagnostic of diabetes. Performed By: #### 5 5454-3 ####[facility] LABCLIA [id number] [address] [address] [place] Lipid 1996 panelon 5 Cholesterol [Mass/Vol] 136 mg/dL Normal <200 [facility] Comment on above: Order Comment: Sylvia men Type: BLOOD SPECIMENOrdering Facility: [facility] Address: [address] [place] [address] Result Comment: <200 mg/dL, Desirable 200-239 mg/dL, Borderline high >239 mg/dL, High Performed By: #### 2 4323-8, 19548-7 ####[facility] LABCLIA [id number] [address] [place] Cholesterol in HDL [Mass/Vol] 33 mg/dL Low >39 [facility] Comment on above: Order Comment: Speci men Type: BLOOD SPECIMENOrdering Facility: [facility] Address: [address] [place] [address] Result Comment: 40-5 9 mg/dL, Acceptable >59 mg/dL, High: Negative risk factor for coronary heart disease <40 mg/dL, Low: Positive risk factor for coronary heart disease Performed By: #### 2 4323-8, 69170-7 ####[facility] LABCLIA [id number] [place] [id number] [facility] OF [place] Cholesterol in LDL [Mass/Vol] 76 mg/dL Normal <100 [facility] Comment on above: Order Comment: Speci men Type: BLOOD SPECIMENOrdering Facility: [facility] Address: [address] [place] [address] Result Comment: <100 mg/dL, Optimal 100-129 mg/dL, Near optimal/above optimal 130-159 mg/dL, Borderline high 160-189 mg/dL, High >189 mg/dL, Very high Secondary prevention optimal LDL Cholesterol levels are recommended to be <70 mg/dL LDL cholesterol is calculated using the Wright-NIH equation. Performed By: #### 2 4323-8, 07853-8 ####[facility] LABIA [id number] [address] [address] [place] Cholesterol in LDL/Cholesterol in HDL [Mass ratio] 2.30 {ratio} Normal <2.54 [facility] Comment on above: Order Comment: Speci men Type: BLOOD SPECIMENOrdering Facility: [facility] Address: [address] [place] [address] Result Comment: Refe rence: 1. National Cholesterol Education Program ATP III Guideline At-A-Glance Quick Desk Reference: National Heart, Lung, and Blood [place]. National Institutes of Health. 2001: NIH Publication No. 01-3305. 2. An International Atherosclerosis Society position paper: global recommendations for the management of dyslipidemia: executive summary, Atherosclerosis. 2014: 232(2):410-413. Performed By: #### 2 4323-8, ####[facility] LABIA [id number] [address] [address] [place] Cholesterol in VLDL [Mass/Vol] 24 mg/dL Normal <30 [facility] Comment on above: Order Comment: Breannei men Type: BLOOD SPECIMENOrdering Facility: [facility] Address: [address] [place] [address] Performed By: #### 2 4323-8, ####[facility] LABIA [id number] [address] [address] [place] Cholesterol non HDL [Mass/Vol] 103 mg/dL Normal <130 [facility] Comment on above: Order Comment: Speci men Type: BLOOD SPECIMENOrdering Facility: [facility] Address: [address] [place] [address] Result Comment: <130 mg/dL, Optimal 130-159 mg/dL, Near optimal/above optimal 160-189 mg/dL, Borderline high 190-219 mg/dL, High >219 mg/dL, Very high Secondary prevention optimal non HDL Cholesterol levels are recommended to be <100 mg/dL Performed By: #### 2 4323-8, 28230-2 ####[facility] LABCLIA [id number] [facility] [address], [place] [address] [place] Cholesterol.total/Chol esterol in HDL [Mass ratio] 4.12 {ratio} Normal <5.10 [facility] Comment on above: Order Comment: Speci men Type: BLOOD SPECIMENOrdering Facility: [facility] Address: [address] [place] [address] Performed By: #### 2 4323-8, 05383-4 ####[facility] LABCLIA [id number] [address], [place] [address] [place] FASTING TIME 12 hrs Normal [facility] Comment on above: Order Comment: Speci men Type: BLOOD SPECIMENOrdering Facility: [facility] Address: [address] [place] [address] Performed By: #### 2 4323-8, 18853-1 ####[facility] LABCLIA [id number] [facility] [address], [facility] [place] Triglyceride [Mass/Vol] 157 mg/dL High <150 [facility] Comment on above: Order Comment: Speci men Type: BLOOD SPECIMENOrdering Facility: [facility] Address: [address] [place] [address] Result Comment: <150 mg/dL, Normal 150-199 mg/dL, Borderline high 200-499 mg/dL, High >499 mg/dL, Very high Performed By: #### 2 4323-8, 93357-9 ####[facility] LABCLIA [id number] [facility] [address] [place] [address] [place] PSA/PROSTATE SPECIFIC ANTIGE N SCREENINGon 08-07-2024 Prostate specific Ag [Mass/Vol] 0.16 ng/mL Normal <2.60 [facility] Comment on above: Order Comment: Speci men Type: BLOOD SPECIMENOrdering Facility: [facility] Address: [address] [place] [address] Result Comment: Tota l PSA test methodology used is the Electrochemiluminescence Immunoassay by [employer]. Total PSA values by differing methodologies cannot be interchanged. Performed By: #### P SAS1 ####[facility] LABCLIA [id number] [facility] [id number] [place] [address] [place] L3410.9992on 07-30-2024 [facility] Misc. COMMENT Normal . [facility] Comment on above: Order Comment: [id number] 0PAIN MANAGEMNT Result Comment: Test Ordered: [id number] T01-Qeqryu+SV2 Amphetamines Screen, Urine Negative ng/mL UI Reference Range: Dymdxw=378 Amphetamine test includes Amphetamine and Methamphetamine. Barbiturates Negative ng/mL UI Reference Range: Renqnl=371 Benzodiazepines Negative ng/mL UI Reference Range: Djjczw=251 Cocaine (Metab.), Urine Negative ng/mL UI Reference Range: Iqoedv=024 Opiates Note: ng/mL UI See Final Results Reference Range: Ogypgr=532 Opiate test includes Codeine, Morphine, Hydromorphone, Hydrocodone. Opiates Positive [A ] UI Reference Range: Qnzlhr=565 Opiate test includes Codeine, Morphine, Hydromorphone, Hydrocodone. Codeine Negative UI Reference Range: Qoptto=986 Morphine Negative UI Reference Range: Gzzsmc=357 Hydromorphone Negative UI Reference Range: Zpmfvy=002 Hydrocodone Positive [A ] UI Reference Range: . Hydrocodone Conf, MS, UR 303 ng/mL UI Reference Range: Mkzhey=806 6-Acetylmorphine, Urine Negative ng/mL UI Reference Range: Cutoff=10 Oxycodone/Oxymorphone, Urine Negative ng/mL UI Reference Range: Zjjkby=834 Test includes Oxycodone and Oxymorphone PCP, Urine Negative ng/mL UI Reference Range: Cutoff=25 Methadone Screen, Urine Negative ng/mL UI Reference Range: Nakkpg=246 Propoxyphene, Urine Negative ng/mL UI Reference Range: Sstlun=181 Fentanyl, Urine Negative ng/mL UI Reference Range: Cutoff=2.0 Test includes Fentanyl and Norfentanyl This test was developed and its performance characteristics determined by [facility]. It has not been cleared or approved by the Food and Drug Administration. Tramadol Negative ng/mL UI Reference Range: Mdrvgo=657 Buprenorphine, Urine Negative ng/mL UI Reference Range: Cutoff=10 Creatinine, Urine 17.2 [L ] mg/dL UI Reference Range: 20.0-300.0 Specific [place] 1.0071 UI Reference Range: . pH, Urine 5.5 UI Reference Range: 4.5-8.9 Performed at: [facility] [address] [place], [place] [id number] Hand Roller Engraver: Nelson Zamorano PhD, Phone: [phone] Performed at: [address] [id number] Hand Roller Engraver: Joe Montana PhD, Phone: [phone] Performed By: #### L 505.5000, L3410.9992 ####[facility] [address] [place], [address] Amphetamine detection with 1 000 ng/mL as cutoffOrdered By: Walter Sellers on 07-24-2024 Amphetamines Screen method >1000 ng/mL Ql (U) Negative < 200 ng/mL [facility] No Panel InformationOrdered By: Walter Sellers on 07-24-2024 Urine Buprenorphine Qualitative Negative < 200 ng/mL [facility] Urine Oxycodone Screen Negative < 100 ng/mL [facility] Quantitative urine opiates m easurementOrdered By: Walter Sellers on 07-24-2024 Opiates Ql (U) Negative < 300 ng/mL [facility] Screening urine fentanyl kenneth surementOrdered By: Walter Sellers on 07-24-2024 fentaNYL Screen Ql (U) Negative [facility] Urine Drug Screen (VISTA)on 07-24-2024 AMPHETAMINES Negative Normal <1000 ng/mL [facility] Comment on above: Order Comment: PAIN MANAGMENT Performed By: #### L 505.5000, L3410.9992 ####[facility] [address] [place], [address] BARBITIURATES Negative Normal < 200 ng/mL [facility] Comment on above: Order Comment: PAIN MANAGMENT Performed By: #### L 505.5000, L3410.9992 ####[facility] [address] [place], [address] BENZODIAZIPINE Negative Normal < 200 ng/mL [facility] Comment on above: Order Comment: PAIN MANAGMENT Performed By: #### L 505.5000, L3410.9992 ####[facility] [address] [place], [address] BUP Ur Drug Scr Negative Normal < 200 ng/mL [facility] Comment on above: Order Comment: PAIN MANAGMENT Performed By: #### L 505.5000, L3410.9992 ####[facility] [address] [place], [address] COCAINE Negative Normal < 300 ng/mL [facility] Comment on above: Order Comment: PAIN MANAGMENT Performed By: #### L 505.5000, L3410.9992 ####[facility] [address] [place], [address] Fentanyl Negative Normal [facility] Comment on above: Order Comment: PAIN MANAGMENT Performed By: #### L 505.5000, L3410.9992 ####[facility] [address] [place], [address] METHADONE Negative Normal < 300 ng/mL [facility] Comment on above: Order Comment: PAIN MANAGMENT Performed By: #### L 505.5000, L3410.9992 ####[facility] [address] [place], [address] OPIATES Negative Normal < 300 ng/mL [facility] Comment on above: Order Comment: PAIN MANAGMENT Performed By: #### L 505.5000, L3410.9992 ####[facility] [address] [place], [address] OXYCODONE Negative Normal < 100 ng/mL [facility] Comment on above: Order Comment: PAIN MANAGMENT Performed By: #### L 505.5000, L3410.9992 ####[facility] [address] [place], [address] PCP Negative Normal < 25 ng/mL [facility] Comment on above: Order Comment: PAIN MANAGMENT Performed By: #### L 505.5000, L3410.9992 ####[facility] [address] [place], [address] THC Negative Normal < 50 ng/mL [facility] Comment on above: Order Comment: PAIN MANAGMENT Performed By: #### L 505.5000, L3410.9992 ####[facility] [address] [place], [address] Urine benzodiazepine levelOr dered By: Walter Basali on 07-24-2024 Benzodiazepines Ql (U) Negative < 200 ng/mL [facility] Urine cocaine levelOrdered B y: Ayman Basali on 07-24-2024 Cocaine Ql (U) Negative < 300 ng/mL [facility] Urine gowvc-1-ctlqsodmjlmlnx abinol (THC) measurementOrdered By: Walter Basali on 07-24-2024 Cannabinoids Screen Ql (U) Negative < 50 ng/mL [facility] Urine phencyclidine (PCP) de tectionOrdered By: destin Basali on 07-24-2024 Phencyclidine Ql (U) Negative < 25 ng/mL [facility] Knee 1 or 2 Viewson 06-21-19 Knee 1 or 2 Views [facility] Imaging Services [address] [place] [address] Knee 1 or 2 Views MR#: [id number] Acct: [id number] Name: KIEL CATHERINE Rep #: [id number] : 1960 M 63 From: Kiel Kramer i, MD PCP: Dr. Alyson Arthur MD Status: REG CLI Study: Knee 1 or 2 Views Date of Exam: 06/20/24 Exam# [id number] Ordering Dr: Walter Sellers MD PROCEDURE: KNEE [...] seen on the left side. Reading Location: [id number] CC: Dr. Walter Sellers MD; Dr. Alyson Arthur MD Global Program Manager: Signed Normal [facility] Knee 1 or 2 Views [facility] Imaging Services [address] [place], [place] [address] Knee 1 or 2 Views MR#: [id number] Acct: [id number] Name: KIEL CATHERINE Rep #: [id number] : 1960 63 From: Kiel Kramer i, MD PCP: Dr. Alyson Arthur MD Status: REG CLI Study: Knee 1 or 2 Views Date of Exam: 06/20/24 Exam# [id number] Ordering Dr: Walter Sellers MD PROCEDURE: KNEE [...] Walter Sellers MD; Dr. Alyson Arthur MD Global Program Manager: Signed Sun [facility] [place] [facility] DILLONKIEL ([id number]) 1960 M Date Time Provider Department 03/04/24 ALYSON ARTHUR During your visit today, we recorded the following information about you: Rae Salaazr 03/04/2024 10:49 AM Signed Kiel is calling Alyson Arthur MD today with concern regarding Medication Request Calling in today states that he needs a new one [facility] the [facility] [place]. flash glucose scanning reader (Uanbai ANAHI 2 READER) Patient has been identified by name and birthdate. Duration of symptoms: N/A Person calling: spouse: Gissell Call patient at: at home and on cell [phone] (home) [phone] (cell) Was an appointment scheduled: No Closing statement: Results or non-symptom based questions: Thank you for calling [facility], your call will be returned within [...] Date Reviewed: 02/08/2024 Reviewed by: Margi Riddle APRN.NOODLE PRESS OPERATOR - Fully Assessed Reason for Visit: Medication Request [138] Visit Diagnosis:Controlled type 2 diabetes mellitus with diabetic neuropathy, with long-term current use of insulin ([facility]) [E11.40, Z79.4] Order(s):flash glucose scanning reader [...] Noted Resol (more content not included)... Normal [facility] [place] [facility]20[facility] -- KIEL CATHERINE ([id number]) 1960 M Date Time Provider Department 02/15/24 ALYSON ARTHUR During your visit today, we recorded the following information about you: Aminah Escudero LPN 02/15/2024 4:54 PM Signed Direction Home sends fax requesting order for Quad cane. After printed fax face to face chart notes and order ATTN: Anastacio Hollis [phone]. Margi Riddle APRN.TODD 02/15/2024 5:08 PM Signed [...] Date Reviewed: 02/08/2024 Reviewed by: Margi Riddle APRN.NOODLE PRESS OPERATOR - Fully Assessed Primary Visit Diagnosis:Chronic back pain, unspecified back location, unspecified back pain laterality [M54.9, G89.29] Other Visit Diagnosis:Right hemiparesis (HCC) [G81.91] Order(s):CANE, QUAD OR THREE PRONG [[id number]] Order #: [id number] Prescriptions as of 02/16/2024 - amLODIPine (NORVASC) [...] [I51.7] Atria (more content not included)... Normal [facility] A1AT SerPl-mCncon 02-08-2024 Alpha 1 antitrypsin [Mass/Vol] 166 mg/dL Normal 90-200 [facility] Comment on above: Order Comment: Speci men Type: BLOOD SPECIMENOrdering Facility: [facility] Address: [address] [place] [address] Performed By: #### 1 825-9, 2132-9 ####[facility] LABCLIA [id number] [place] [address] [place] ALBUMIN/CREATININE RATIO, UR INEon 02-08-2024 Albumin DL <= 20 mg/L (U) [Mass/Vol] 14.2 mg/L Normal [facility] Comment on above: Order Comment: Speci men Type: URINE SPECIMENOrdering Facility: [facility] Address: [address] [place] [address] Performed By: #### U ACR ####[facility] LABCLIA [id number] [place] [address] [place] Albumin/Creatinine (U) [Mass ratio] 76 mg/g High <30 [facility] Comment on above: Order Comment: Speci men Type: URINE SPECIMENOrdering Facility: [facility] Address: [address] [place] [address] Result Comment: Adul t Male and Female Nephrotic Criteria: <30 mg/g is considered normal to mildly increased 30-300 mg/g is considered moderately increased >300 mg/g is considered severely increased KDIGO. (2013). KDIGO 2012 Clinical Practice Guideline for the Evaluation and Management of Chronic Kidney Disease. Official Journal of the International Society of Nephrology, 3(1), 1-150. Performed By: #### U ACR ####[facility] LABCLIA [id number] [place] [address] [place] Creatinine (U) [Mass/Vol] 18.7 mg/dL Low 20.0-300.0 [facility] Comment on above: Order Comment: Speci men Type: URINE SPECIMENOrdering Facility: [facility] Address: [address] [place] [address] Performed By: #### U ACR ####[facility] LABCLIA [id number] [place] [id number] [place] CBC W Auto Differential pane l (Bld)on 02-08-2024 Basophils (Bld) [#/Vol] 0.06 10*3/uL Normal <0.11 [facility] Comment on above: Order Comment: Speci men Type: BLOOD SPECIMENOrdering Facility: [facility] Address: [address] [place] [address] Performed By: #### 5 7021-8 ####[facility] LABCLIA [id number] [place] [address] [place] Basophils/100 WBC (Bld) 0.8 % Normal [facility] Comment on above: Order Comment: Speci men Type: BLOOD SPECIMENOrdering Facility: [facility] Address: [address] [place] [address] Performed By: #### 5 7021-8 ####[facility] LABCLIA [id number] [place] [address] [place] Differential cell count method Nom (Bld) Auto Normal [facility] Comment on above: Order Comment: Speci men Type: BLOOD SPECIMENOrdering Facility: [facility] Address: [address] [place] [address] Performed By: #### 5 7021-8 ####[facility] LABCLIA [id number] [place] [address] [place] Eosinophils (Bld) [#/Vol] 0.03 10*3/uL Normal <0.46 [facility] Comment on above: Order Comment: Speci men Type: BLOOD SPECIMENOrdering Facility: [facility] Address: [address] [place] [address] Performed By: #### 5 7021-8 ####[facility] LABCLIA [id number] [place] [address] [place] Eosinophils/100 WBC (Bld) 0.4 % Normal [facility] Comment on above: Order Comment: Speci men Type: BLOOD SPECIMENOrdering Facility: [facility] Address: [address] [place] [address] Performed By: #### 5 7021-8 ####[facility] LABCLIA [id number] [place] [address] [place] Erythrocyte distribution width (RBC) [Ratio] 12.6 % Normal 11.5-15.0 [facility] Comment on above: Order Comment: Speci men Type: BLOOD SPECIMENOrdering Facility: [facility] Address: [address] [place] [address] Performed By: #### 5 7021-8 ####[facility] LABCLIA [id number] [place] [address] [place] Hematocrit (Bld) [Volume fraction] 45.2 % Normal 39.0-51.0 [facility] Comment on above: Order Comment: Speci men Type: BLOOD SPECIMENOrdering Facility: [facility] Address: [address] [place] [address] Performed By: #### 5 7021-8 ####[facility] LABCLIA [id number] [place] [address] [place] Hemoglobin (Bld) [Mass/Vol] 15.5 g/dL Normal 13.0-17.0 [facility] Comment on above: Order Comment: Speci men Type: BLOOD SPECIMENOrdering Facility: [facility] Address: [address] [place] [address] Performed By: #### 5 7021-8 ####[facility] LABIA [id number] [place] [address] [place] Immature granulocytes (Bld) [#/Vol] 10*3/uL Normal <0.10 [facility] Comment on above: Order Comment: Speci men Type: BLOOD SPECIMENOrdering Facility: [facility] Address: [address] [place] [address] Performed By: #### 5 7021-8 ####[facility] LABCLIA [id number] [place] [address] [place] Immature granulocytes/100 WBC (Bld) 0.3 % Normal [facility] Comment on above: Order Comment: Speci men Type: BLOOD SPECIMENOrdering Facility: [facility] Address: [address] [place] [address] Performed By: #### 5 7021-8 ####[facility] LABCLIA [id number] [place] [address] [place] Lymphocytes (Bld) [#/Vol] 1.56 10*3/uL Normal 1.00-4.00 [facility] Comment on above: Order Comment: Speci men Type: BLOOD SPECIMENOrdering Facility: [facility] Address: [address] [place] [address] Performed By: #### 5 7021-8 ####[facility] LABCLIA [id number] [place] [address] [place] Lymphocytes/100 WBC (Bld) 20.3 % Normal [facility] Comment on above: Order Comment: Speci men Type: BLOOD SPECIMENOrdering Facility: [facility] Address: [address] [place] [address] Performed By: #### 5 7021-8 ####[facility] LABCLIA [id number] [place] [address] [place] MCH (RBC) [Entitic mass] 30.6 pg Normal 26.0-34.0 [facility] Comment on above: Order Comment: Speci men Type: BLOOD SPECIMENOrdering Facility: [facility] Address: [address] [place] [address] Performed By: #### 5 7021-8 ####[facility] LABCLIA [id number] [place] [address] [place] MCHC (RBC) [Mass/Vol] 34.3 g/dL Normal 30.5-36.0 [facility] Comment on above: Order Comment: Speci men Type: BLOOD SPECIMENOrdering Facility: [facility] Address: [address] [place] [address] Performed By: #### 5 7021-8 ####[facility] LABCLIA [id number] [place] [address] [place] MCV (RBC) [Entitic vol] 89.3 fL Normal 80.0-100.0 [facility] Comment on above: Order Comment: Speci men Type: BLOOD SPECIMENOrdering Facility: [facility] Address: [address] [place] [address] Performed By: #### 5 7021-8 ####[facility] LABCLIA [id number] [place] [address] [place] Monocytes (Bld) [#/Vol] 0.62 10*3/uL Normal <0.87 [facility] Comment on above: Order Comment: Speci men Type: BLOOD SPECIMENOrdering Facility: [facility] Address: [address] [place] [address] Performed By: #### 5 7021-8 ####[facility] LABCLIA [id number] [place] [address] [place] Monocytes/100 WBC (Bld) 8.1 % Normal [facility] Comment on above: Order Comment: Speci men Type: BLOOD SPECIMENOrdering Facility: [facility] Address: [address] [place] [address] Performed By: #### 5 7021-8 ####[facility] LABCLIA [id number] [place] [address] [place] Neutrophils (Bld) [#/Vol] 5.38 10*3/uL Normal 1.45-7.50 [facility] Comment on above: Order Comment: Speci men Type: BLOOD SPECIMENOrdering Facility: [facility] Address: [address] [place] [address] Performed By: #### 5 7021-8 ####[facility] LABCLIA [id number] [place] [address] [place] Neutrophils/100 WBC (Bld) 70.1 % Normal [facility] Comment on above: Order Comment: Speci men Type: BLOOD SPECIMENOrdering Facility: [facility] Address: [address] [place] [address] Performed By: #### 5 7021-8 ####[facility] LABCLIA [id number] [place] [address] [place] Nucleated RBC (Bld) [#/Vol] 10*3/uL Normal <0.01 [facility] Comment on above: Order Comment: Speci men Type: BLOOD SPECIMENOrdering Facility: [facility] Address: [address] [place] [address] Performed By: #### 5 7021-8 ####[facility] LABCLIA [id number] [place] [address] [place] Nucleated RBC/100 WBC (Bld) [Ratio] 0.0 /100 WBC Normal [facility] Comment on above: Order Comment: Speci men Type: BLOOD SPECIMENOrdering Facility: [facility] Address: [address] [place] [address] Performed By: #### 5 7021-8 ####[facility] LABCLIA [id number] [place] [address] [place] Platelet mean volume (Bld) [Entitic vol] 12.3 fL Normal 9.0-12.7 [facility] Comment on above: Order Comment: Speci men Type: BLOOD SPECIMENOrdering Facility: [facility] Address: [address] [place] [address] Performed By: #### 5 7021-8 ####[facility] LABCLIA [id number] [place] [address] [place] Platelets (Bld) [#/Vol] 187 10*3/uL Normal 150-400 [facility] Comment on above: Order Comment: Speci men Type: BLOOD SPECIMENOrdering Facility: [facility] Address: [address] [place] [address] Performed By: #### 5 7021-8 ####[facility] LABCLIA [id number] [place] [address] [place] RBC (Bld) [#/Vol] 5.06 10*6/uL Normal 4.20-6.00 [facility] Comment on above: Order Comment: Speci men Type: BLOOD SPECIMENOrdering Facility: [facility] Address: [address] [place] [address] Performed By: #### 5 7021-8 ####[facility] LABCLIA [id number] [place] [address] [place] WBC (Bld) [#/Vol] 7.67 10*3/uL Normal 3.70-11.00 [facility] Comment on above: Order Comment: Speci men Type: BLOOD SPECIMENOrdering Facility: [facility] Address: [address] [place] [address] Performed By: #### 5 7021-8 ####[facility] LABCLIA [id number] [place] [address] [place] CNOVon 02-08-2024 CNOV Office Visit (FAMPWS ) -- JANKIKIEL GARCIA ([id number]) 1960 M Date Time Provider Department 02/08/24 11:20 AM MARGI RIDDLE FAMPWS During your visit today, we recorded the following information about you: Temperature Pulse Respiration Blood pressure 98 degrees 64/minute 16/minute 124/76 Weight 116.6 kg Margi Riddle, FRAMEMAN.[employer]ODLE PRESS OPERATOR 02/08/2024 1:20 PM Signed Chief Reason For [...] Staff Physician (Cardiology) Angela Schmid APRN.TODD as [employer]eter[employer] (Family Medicine) Margi Riddle APRN.CNP as School Cafeteria Cook (Family Medicine) Concerns today: Getting up frequently [...] has mild diffuse disease. Dilatation of Aorta (Formerly [facility]) (C priority) Comment: 03/16/23 TTE: The visualized aorta is dilated with a maximal dimension of 4.4 cm. Postoperative Pain (D priority) Comment: see coord note hx chronic back pain Hypernatremia - 03/25/2023 (F priority) Hypervolemia - 03/21/2023 (F priority) On Tube Feeding Diet - 04/06/2023 Slurred Speech - 04/05/2023 Right Hemiparesis ([facility]) - 04/05/2023 Cognitive Communication Deficit - 04/04/2023 Pressure Injury of Coccygeal Region, Unstageable ([facility]) - 04/03/2023 Comment: Primary Sleep Apnea of [place] - 03/28/2023 Nicotine use disorder, F17.2 - 03/27/2023 Comment: Dysarthria - 03/27/2023 Comment: Impaired Gait and Mobility - 03/24/2023 Right Arm Weakness - 03/24/2023 Coordination Impairment - 03/24/2023 Comment: Alteration in Self-Care Ability - 03/24/2023 Comment: Insulin Dose Changed ([facility]) - 03/24/2023 Type 2 Diabetes Mellitus With Hyperglycemia, With Long-Term Current Use of Insulin ([facility]) - 03/24/2023 Comment: Hemoglobin A1C (%) Date Value 02/27/2023 6.5 06/24/2020 9.6 Dysphagia - 03/22/2023 Comment: MBS on 03/28/23 Followed by Speech therapy: see coord note Arterial Ischemic Stroke, Mca (Middle Cerebral Artery), Left, Acute ([facility]) - 03/22/2023 Comment: see [...] is a 62 year old male from [place], [place]. PMANDR following for acute (more content not included)... Normal [facility] Comprehensive metabolic 2000 panelon 02-08-2024 Albumin [Mass/Vol] 3.8 g/dL Low 3.9-4.9 [facility] Comment on above: Order Comment: Speci men Type: BLOOD SPECIMENOrdering Facility: [facility] Address: [address] [place] [address] Performed By: #### 2 4323-8, 12695-5, 66291-2, 3015-3 ####[facility] LABCLIA [id number] [place] [address] [place] ALP [Catalytic activity/Vol] 125 U/L High 38-113 [facility] Comment on above: Order Comment: Speci men Type: BLOOD SPECIMENOrdering Facility: [facility] Address: [address] [place] [address] Performed By: #### 2 4323-8, 39865-2, , 3015-3 ####[facility] LABIA [id number] [place] [address] [place] ALT [Catalytic activity/Vol] 8 U/L Low 10-54 [facility] Comment on above: Order Comment: Speci men Type: BLOOD SPECIMENOrdering Facility: [facility] Address: [address] [place] [address] Performed By: #### 2 4323-8, 29913-4, 09789-2, 3015-3 ####[facility] LABCLIA [id number] [place] [id number] [place] Anion gap [Moles/Vol] 11 mmol/L Normal 8-15 [facility] Comment on above: Order Comment: Speci men Type: BLOOD SPECIMENOrdering Facility: [facility] Address: [address] [place] [address] Performed By: #### 2 4323-8, 06147-7, 69919-5, 3015-3 ####[facility] LABCLIA [id number] [place] [address] [place] AST [Catalytic activity/Vol] 13 U/L Low 14-40 [facility] Comment on above: Order Comment: Speci men Type: BLOOD SPECIMENOrdering Facility: [facility] Address: [address] [place] [address] Performed By: #### 2 4323-8, 42414-1, 36007-6, 3015-3 ####[facility] LABCLIA [id number] [place] [address] [place] Bilirubin [Mass/Vol] 0.5 mg/dL Normal 0.2-1.3 [facility] Comment on above: Order Comment: Speci men Type: BLOOD SPECIMENOrdering Facility: [facility] Address: [address] [place] [address] Performed By: #### 2 4323-8, 04608-0, , 3 ####[facility] LABCLIA [id number] [place] [address] [place] Calcium [Mass/Vol] 9.1 mg/dL Normal 8.5-10.2 [facility] Comment on above: Order Comment: Speci men Type: BLOOD SPECIMENOrdering Facility: [facility] Address: [address] [place], [place] [address] Performed By: #### 2 4323-8, 19832-6, 18749-2, 3015-3 ####[facility] LABCLIA [id number] [place] [address] [place] Chloride [Moles/Vol] 98 mmol/L Normal 98-107 [facility] Comment on above: Order Comment: Speci men Type: BLOOD SPECIMENOrdering Facility: [facility] Address: [address] [place], [place] [address] Performed By: #### 2 4323-8, 65339-0, , 6-3 ####[facility] LABCLIA [id number] [address] [address] [place] CO2 [Moles/Vol] 25 mmol/L Normal 22-30 [facility] Comment on above: Order Comment: Speci men Type: BLOOD SPECIMENOrdering Facility: [facility] Address: [address] [place], [place] [address] Performed By: #### 2 4323-8, 25993-8, , 3015-3 ####[facility] LABIA [id number] [address] [address] [place] Creatinine [Mass/Vol] 0.70 mg/dL Low 0.73-1.22 [facility] Comment on above: Order Comment: Speci men Type: BLOOD SPECIMENOrdering Facility: [facility] Address: [address] [place] [address] Performed By: #### 2 4323-8, 70328-8, , 3 ####[facility] LABIA [id number] [address] [address] [place] Creatinine and Glomerular filtration rate.predicted panel (S/P/Bld) 104 mL/min/1.73m??? Normal >=60 [facility] Comment on above: Order Comment: Speci men Type: BLOOD SPECIMENOrdering Facility: [facility] Address: [address] [place] [address] Result Comment: Stephanie mated Glomerular Filtration Rate [...] actual GFR. Performed By: #### 2 4323-8, 15778-1, 41421-3, 3015-3 ####[facility] LABCLIA [id number] [address] [address] [place] Glucose [Mass/Vol] 326 mg/dL High 74-99 [facility] Comment on above: Order Comment: Speci men Type: BLOOD SPECIMENOrdering Facility: [facility] Address: [address] [place] [address] Result Comment: The [place] Diabetes [employer] (ADA) provides guidance for cutoff [...] Standards of Medical Care in Diabetes 2016, [place] [employer]. Diabetes Care. 2016.39(Suppl 1). Performed By: #### 2 4323-8, 31546-6, , 3 ####[facility] LABCLIA [id number] [place] [address] [place] Potassium [Moles/Vol] 5.1 mmol/L Normal 3.7-5.1 [facility] Comment on above: Order Comment: Speci men Type: BLOOD SPECIMENOrdering Facility: [facility] Address: [address] [place] [address] Performed By: #### 2 4323-8, 36009-0, , 3015-3 ####[facility] LABCLIA [id number] [address] [address] [place] Protein [Mass/Vol] 6.4 g/dL Normal 6.3-8.0 [facility] Comment on above: Order Comment: Speci men Type: BLOOD SPECIMENOrdering Facility: [facility] Address: [address] [place], [place] [address] Performed By: #### 2 4323-8, 60335-9, 58506-3, 6-3 ####[facility] LABCLIA [id number] [address] [address] [place] Sodium [Moles/Vol] 134 mmol/L Low 136-144 [facility] Comment on above: Order Comment: Speci men Type: BLOOD SPECIMENOrdering Facility: [facility] Address: [address] [place] [address] Performed By: #### 2 4323-8, 37439-8, , 3015-3 ####[facility] LABCLIA [id number] [address] [address] [place] Urea nitrogen [Mass/Vol] 19 mg/dL Normal - [facility] Comment on above: Order Comment: Speci men Type: BLOOD SPECIMENOrdering Facility: [facility] Address: [address] [place] [address] Performed By: #### 2 4323-8, 76714-8, , 3015-3 ####[facility] LABCLIA [id number] [address] [address] [place] HbA1c (Bld)on 02-08-2024 Average glucose Estimated from glycated hemoglobin (Bld) [Mass/Vol] 249 mg/dL Normal [facility] Comment on above: Order Comment: Speci men Type: BLOOD SPECIMENOrdering Facility: [facility] Address: [address] [place] [address] Result Comment: eAG: (Estimated average glucose) is a calculated value from HgbA1c and is outbound telemarketing representative of the average blood glucose level in the last 2-3 month period. Performed By: #### 5 5454-3 ####[facility] LABCLIA [id number] [address] [address] [place] HbA1c (Bld) [Mass fraction] 10.3 % High 4.3-5.6 [facility] Comment on above: Order Comment: Breannei men Type: BLOOD SPECIMENOrdering Facility: [facility] Address: [address] [place] [address] Result Comment: Jayashree ican Diabetes Association guidelines indicate that patients with HgbA1c in the range 5.7-6.4% are at increased risk for development of diabetes, and intervention by lifestyle modification may be beneficial. HgbA1c greater or equal to 6.5% is considered diagnostic of diabetes. Performed By: #### 5 5454-3 ####[facility] LABCLIA [id number] [place] [address] [place] Lipid 1996 panelon 4 Cholesterol [Mass/Vol] 157 mg/dL Normal <200 [facility] Comment on above: Order Comment: Sylvia men Type: BLOOD SPECIMENOrdering Facility: [facility] Address: [address] [place] [address] Result Comment: <200 mg/dL, Desirable 200-239 mg/dL, Borderline high >239 mg/dL, High Performed By: #### 2 4323-8, 29001-4, , 3015-3 ####[facility] LABCLIA [id number] [place] [address] [place] Cholesterol in HDL [Mass/Vol] 33 mg/dL Low >39 [facility] Comment on above: Order Comment: Breannei men Type: BLOOD SPECIMENOrdering Facility: [facility] Address: [address] [place] [address] Result Comment: 40-5 9 mg/dL, Acceptable >59 mg/dL, High: Negative risk factor for coronary heart disease <40 mg/dL, Low: Positive risk factor for coronary heart disease Performed By: #### 2 4323-8, 24707-8, 99835-8, 3015-3 ####[facility] LABCLIA [id number] [place] [address] [place] Cholesterol in LDL [Mass/Vol] 64 mg/dL Normal <100 [facility] Comment on above: Order Comment: Speci men Type: BLOOD SPECIMENOrdering Facility: [facility] Address: [address] [place] [address] Result Comment: <100 mg/dL, Optimal 100-129 mg/dL, Near optimal/above optimal 130-159 mg/dL, Borderline high 160-189 mg/dL, High >189 mg/dL, Very high Secondary prevention optimal LDL Cholesterol levels are recommended to be < 70 mg/dL Performed By: #### 2 4323-8, 36620-3, 31772-0, 6-3 ####[facility] LABCLIA [id number] [place] [address] [place] Cholesterol in LDL/Cholesterol in HDL [Mass ratio] 1.94 {ratio} Normal <2.54 [facility] Comment on above: Order Comment: Speci men Type: BLOOD SPECIMENOrdering Facility: [facility] Address: [address] [place] [address] Result Comment: Refe rence: 1. National Cholesterol Education Program ATP III Guideline At-A-Glance Quick Desk Reference: National Heart, Lung, and Blood [place]. National Institutes of Health. 2001: NIH Publication No. 01-3305. 2. An International Atherosclerosis Society position paper: global recommendations for the management of dyslipidemia: executive summary, Atherosclerosis. 2014: 232(2):410-413. Performed By: #### 2 4323-8, 61962-2, 81286-1, 6-3 ####[facility] LABCLIA [id number] [place] [id number] [place] Cholesterol in VLDL [Mass/Vol] 60 mg/dL High <30 [facility] Comment on above: Order Comment: Breannei men Type: BLOOD SPECIMENOrdering Facility: [facility] Address: [address] [place] [address] Performed By: #### 2 4323-8, 80343-1, 06955-6, 6-3 ####[facility] LABCLIA [id number] [place] [address] [place] Cholesterol non HDL [Mass/Vol] 124 mg/dL Normal <130 [facility] Comment on above: Order Comment: Speci men Type: BLOOD SPECIMENOrdering Facility: [facility] Address: [address] [place] [address] Result Comment: <130 mg/dL, Optimal 130-159 mg/dL, Near optimal/above optimal 160-189 mg/dL, Borderline high 190-219 mg/dL, High >219 mg/dL, Very high Secondary prevention optimal non HDL Cholesterol levels are recommended to be <100 mg/dL Performed By: #### 2 4323-8, 76843-4, 08503-4, 6-3 ####[facility] LABCLIA [id number] [place] [address] [place] Cholesterol.total/Chol esterol in HDL [Mass ratio] 4.76 {ratio} Normal <5.10 [facility] Comment on above: Order Comment: Speci men Type: BLOOD SPECIMENOrdering Facility: [facility] Address: [address] [place] [address] Performed By: #### 2 4323-8, 91942-0, 49533-0, 6-3 ####[facility] LABCLIA [id number] [place] [address] [place] FASTING TIME 15 hrs Normal [facility] Comment on above: Order Comment: Speci men Type: BLOOD SPECIMENOrdering Facility: [facility] Address: [address] [place] [address] Performed By: #### 2 4323-8, 91587-5, 24111-0, 6-3 ####[facility] LABCLIA [id number] [place] [address] [place] Triglyceride [Mass/Vol] 300 mg/dL High <150 [facility] Comment on above: Order Comment: Speci men Type: BLOOD SPECIMENOrdering Facility: [facility] Address: [address] [place] [address] Result Comment: <150 mg/dL, Normal 150-199 mg/dL, Borderline high 200-499 mg/dL, High >499 mg/dL, Very high Performed By: #### 2 4323-8, 98439-7, 78180-4, 6-3 ####[facility] LABCLIA [id number] [place] [id number] [place] Magnesium SerPl-mCncon 02-07 Magnesium [Mass/Vol] 1.7 mg/dL Normal 1.7-2.3 [facility] Comment on above: Order Comment: Speci men Type: BLOOD SPECIMENOrdering Facility: [facility] Address: [address] [place] [address] Performed By: #### 2 4323-8, 28139-3, , 3015-3 ####[facility] LABCLIA [id number] [place] [address] [place] TSH SerPl-aCncon 02-08-2024 TSH Qn 0.825 m[IU]/L Normal 0.270-4.20 0 [facility] Comment on above: Order Comment: Speci men Type: BLOOD SPECIMENOrdering Facility: [facility] Address: [address] [place] [address] Performed By: #### 2 4323-8, 57172-4, 16919-9, 3015-3 ####[facility] LABCLIA [id number] [address] [place] Urinalysis complete panel (U )on 02-08-2024 Bacteria LM.HPF (Urine sed) [#/Area] Negative Normal Negative [facility] Comment on above: Order Comment: Speci men Type: URINE SPECIMENOrdering Facility: [facility] Address: [address] [place] [address] Performed By: #### 2 4356-8 ####[facility] LABCLIA [id number] [place] [address] [place] Bilirubin Ql (U) Negative Normal Negative [facility] Comment on above: Order Comment: Speci men Type: URINE SPECIMENOrdering Facility: [facility] Address: [address] [place] [address] Performed By: #### 2 4356-8 ####[facility] LABCLIA [id number] [place] [address] [place] Clarity (Unsp spec) Clear Normal Clear [facility] Comment on above: Order Comment: Speci men Type: URINE SPECIMENOrdering Facility: [facility] Address: [address] [place] [address] Performed By: #### 2 4356-8 ####[facility] LABCLIA [id number] [place] [address] [place] [facility] Color (U) Yellow Normal Yellow [facility] Comment on above: Order Comment: Speci men Type: URINE SPECIMENOrdering Facility: [facility] Address: [address] [place] [address] Performed By: #### 2 4356-8 ####[facility] LABCLIA [id number] [place] [address] [place] Epithelial cells LM.HPF (Urine sed) [#/Area] None Seen Normal [facility] Comment on above: Order Comment: Speci men Type: URINE SPECIMENOrdering Facility: [facility] Address: [address] [place] [address] Performed By: #### 2 4356-8 ####[facility] LABCLIA [id number] [place] [address] [place] Glucose Test strip (U) [Mass/Vol] Negative Normal Negative [facility] Comment on above: Order Comment: Speci men Type: URINE SPECIMENOrdering Facility: [facility] Address: [address] [place] [address] Performed By: #### 2 4356-8 ####[facility] LABCLIA [id number] [place] [address] [place] Hemoglobin Ql (U) Negative Normal Negative [facility] Comment on above: Order Comment: Speci men Type: URINE SPECIMENOrdering Facility: [facility] Address: [address] [place] [address] Performed By: #### 2 4356-8 ####[facility] LABCLIA [id number] [place] [address] [place] Hyaline casts (Urine sed) [#/Area] 0 /[LPF] Normal 0 /LPF [facility] Comment on above: Order Comment: Speci men Type: URINE SPECIMENOrdering Facility: [facility] Address: [address] [place] [address] Performed By: #### 2 4356-8 ####[facility] LABCLIA [id number] [place] [address] [place] Ketones Ql (U) Negative Normal Negative [facility] Comment on above: Order Comment: Speci men Type: URINE SPECIMENOrdering Facility: [facility] Address: [address] [place] [address] Performed By: #### 2 4356-8 ####[facility] LABCLIA [id number] [place] [address] [place] Leukocyte esterase Test strip Ql (U) Negative Normal Negative [facility] Comment on above: Order Comment: Speci men Type: URINE SPECIMENOrdering Facility: [facility] Address: [address] [place] [address] Performed By: #### 2 4356-8 ####[facility] LABCLIA [id number] [place] [address] [place] Nitrite Ql (U) Negative Normal Negative [facility] Comment on above: Order Comment: Speci men Type: URINE SPECIMENOrdering Facility: [facility] Address: [address] [place] [address] Performed By: #### 2 4356-8 ####[facility] LABCLIA [id number] [place] [address] [place] pH (U) 6.0 [pH] Normal <8.5 [facility] Comment on above: Order Comment: Speci men Type: URINE SPECIMENOrdering Facility: [facility] Address: [address] [place] [address] Performed By: #### 2 4356-8 ####[facility] LABIA [id number] [place] [address] [place] Protein (U) [Mass/Vol] Negative Normal Negative Cl [facility] Comment on above: Order Comment: Speci men Type: URINE SPECIMENOrdering Facility: [facility] Address: [address] [place] [address] Performed By: #### 2 4356-8 ####[facility] LABIA [id number] [place] [address] [place] RBC LM.HPF (Urine sed) [#/Area] 0-2 /HPF Normal 0-2 /HPF [facility] Comment on above: Order Comment: Speci men Type: URINE SPECIMENOrdering Facility: [facility] Address: [address] [place] [address] Performed By: #### 2 4356-8 ####[facility] LABIA [id number] [place] [address] [place] Specific gravity (U) [Rel density] 1.010 Normal 1.005-1.03 0 [facility] Comment on above: Order Comment: Speci men Type: URINE SPECIMENOrdering Facility: [facility] Address: [address] [place] [address] Performed By: #### 2 4356-8 ####[facility] LABIA [id number] [place] [address] [place] Urobilinogen Ql (U) 0.2 EU/dL Normal 0.2-1.0 EU/dL [facility] Comment on above: Order Comment: Speci men Type: URINE SPECIMENOrdering Facility: [facility] Address: [address] [place] [address] Performed By: #### 2 4356-8 ####[facility] LABCLIA [id number] [place] [address] [place] WBC LM.HPF (Urine sed) [#/Area] 0-5 /HPF Normal 0-5 /HPF [facility] Comment on above: Order Comment: Speci men Type: URINE SPECIMENOrdering Facility: [facility] Address: [address] [place] [address] Performed By: #### 2 4356-8 ####[facility] LABCLIA [id number] [place] [address] [place] Vit B12 [facility] 12-26-2 024 Cobalamin (Vitamin B12) [Mass/Vol] 589 pg/mL Normal 232-1245 [facility] Comment on above: Order Comment: Speci men Type: BLOOD SPECIMENOrdering Facility: [facility] Address: [address] [place] [address] Performed By: #### 1 825-9, 2132-9 ####[facility] LABIA [id number] [place] [address] [place] CNPBhavya 01-29-2024 [facility] -- KIEL CATHERINE ([id number]) 1960 M Date Time Provider Department 01/29/24 [facility]IDDLE [facility] During your visit today, we recorded [...] to be completed. Please advise Margi Riddle APRN.NOODLE PRESS OPERATOR 01/29/2024 2:49 PM Signed No. They need [...] disease [J98 (more content not included)... Normal [facility] 12-28-2023 CNPN Telephone [facility] -- KIEL CATHERINE ([id number]) 1960 M Date Time Provider Department 12/28/23 [facility]ON ARTHUR [facility] During your visit today, we recorded the following information about you: Tia Arenas RN 12/28/2023 3:02 PM Signed [facility] calling to let provider know they faxed [...] [M77.8] 05/14/2013 (more content not included)... [facility] -- KIEL CATHERINE ([id number]) 1960 M Date Time Provider Department 12/28/23 ALYSON ARTHUR [facility] During your visit today, we recorded [...] [I35.0] 08/10/2018 (more content not included)... Normal [facility] CNPNon [facility] -- KIEL CATHERINE ([id number]) 1960 Date Time Provider Department 12/19/23 ALYSON ARTHUR [facility] During your visit today, we recorded the following information about you: July Perez LPN 12/19/2023 11:45 AM Signed Aria with [facility] called and they received the prescription for Novolog flexpen. Aria reports they need more information. Need to have a per day and max amount so they can fill and bill. ANALI Ashton JACQUELINE A 12/19/2023 12:17 PM Signed Delvin and Fely Pratt LPN 12/19/2023 3:21 PM Signed [facility] calling asking to have Novalog rx [...] not exceed (more content not included)... Normal [facility] 12-12-2023 [facility] Telephone ([facility]) -- JANKIKIEL GARCIA ([id number]) 1960 M Date Time Provider Department 12/12/23 ALYSON ARTHUR [facility] During your visit today, we recorded [...] please send rx for Novolog Flexpens to [place]. ANALI Ortez Jamie, LPN 12/12/2023 3:24 PM Signed See [facility] POC reports. Pt has Novolog Flexpen [...] med updates in system never filled. Called [facility] and they have not dispensed Novolog since 2021. Advised received rx for humalog with sliding scale QID on 12/06/23 and gave to patient. They have never given Humalog prior. Verified that last LANTUS was fill May 2023 for 90 days and would only last till August. [facility] is not sure if rx are being filled at another pharmacy? I advised we have been sending to [facility] but family could transfer out. Spoke to and she advised spouse insulin comes from [facility] and hers from [facility]. said that she takes Novolog and thought [...] the morning. Would need to call the [phone] phone her phone is . He uses [facility] for his pharmacy. Aware PCP is out [...] MA 12/18/2023 3:17 PM Signed Lorie from [facility] returned call. States she only sees patient on monthly basis and last visit was 11/15. She states whatever her med list for patient is isn't necessarily what he's currently taking as it could have changed. Med list from Lorie: Lantus 12 units qhs Novolog flex pens sliding scale TID (50 units for q 50/200) LITTLE Willett Jacqueline A, FRAMEMAN.NOODLE PRESS OPERATOR 12/18/2023 5:19 PM Signed Please let pt. [...] Visit Diagnosis:T (more content not included)... Normal [facility] 12 Lead EKGon 10-18-2023 12 Lead EKG [facility] Services [address] [place] [address] 12 Lead EKG 10/18/231927 MR#: [id number] Acct: [id number] Name: KIEL CATHERINE Rep #: [id number] : 1960 63 From: Madhu Smith MD [...] Abnormal ECG Confirmed by MADHU SMITH MD ([id number]), loan expeditor OTNY MOE ([id number]) on 10/19/2023 1:51:14 PM Referred By: Confirmed By:MADHU SMITH MD 10/19/23 1351 Date Madhu Smith MD CC: Dr. J Carlos Correia DO; Dr. Alyson Arthur MD Signed Normal [facility] Acetone Serumon 10-18-2023 ACETONE SERUM Negative Normal NEG [facility] Comment on above: Performed By: #### L 503.6005, L501.6900 #### [facility] [address] [place], [address] Basic Metabolic Profile (BMP )on 10-18-2023 BUN/CRE 19.2 RATIO Normal 10-20 [facility] Comment on above: Order Comment: 'TROP ' Serial specimen #1, #2 or #3: 1 Performed By: #### L 500.2500, L100.0100, L501.4020 #### [facility] [address] [place], [address] CA,Total 9.1 mg/dL Normal 8.5-10.1 [facility] Comment on above: Order Comment: 'TROP ' Serial specimen #1, #2 or #3: 1 Performed By: #### L 500.2500, L100.0100, L501.4020 #### [facility] [address] [place], [address] Chloride [Moles/Vol] 101 mmol/L Normal 98-107 [facility] Comment on above: Order Comment: 'TROP ' Serial specimen #1, #2 or #3: 1 Performed By: #### L 500.2500, L100.0100, L501.4020 #### [facility] [address] [place], [address] CO2 [Moles/Vol] 31.0 mmol/L Normal 21.0-32.0 [facility] Comment on above: Order Comment: 'TROP ' Serial specimen #1, #2 or #3: 1 Performed By: #### L 500.2500, L100.0100, L501.4020 #### [facility] [address] [place], [address] Creatinine [Mass/Vol] 1.04 mg/dL Normal 0.70-1.30 [facility] Comment on above: Order Comment: 'TROP ' Serial specimen #1, #2 or #3: 1 Result Comment: The validity of the calculated GFR GFRAA in patients over 70 years has not been determined. Clinical correlation is essential. Performed By: #### L 500.2500, L100.0100, L501.4020 #### [facility] [address] [place], [address] ECRCL 82.36 ml/min Normal [facility] Comment on above: Order Comment: 'TROP ' Serial specimen #1, #2 or #3: 1 Performed By: #### L 500.2500, L100.0100, L501.4020 #### [facility] [address] [place], [address] EST GFR - AA 93 mL/min Normal >60 [facility] Comment on above: Order Comment: 'TROP ' Serial specimen #1, #2 or #3: 1 Result Comment: Afri can [place] GFR Calc Performed By: #### L 500.2500, L100.0100, L501.4020 #### [facility] [address] [place], [address] GAP 5 Normal 5-15 [facility] Comment on above: Order Comment: 'TROP ' Serial specimen #1, #2 or #3: 1 Performed By: #### L 500.2500, L100.0100, L501.4020 #### [facility] [address] [place], [address] GFR/1.73 sq M.predicted among non-blacks MDRD (S/P/Bld) [Vol rate/Area] 77 mL/min/{1.73_m2} Normal >60 [facility] Comment on above: Order Comment: 'TROP ' Serial specimen #1, #2 or #3: 1 Result Comment: Non- GFR Calc Performed By: #### L 500.2500, L100.0100, L501.4020 #### [facility] [address] [place], [address] Glucose [Mass/Vol] 419 mg/dL High 74-106 [facility] Comment on above: Order Comment: 'TROP ' Serial specimen #1, #2 or #3: 1 Result Comment: Gluc ose result greater than or equal to 200 mg/dL suggests DIABETES MELLITUS per A.D.A. criteria. Performed By: #### L 500.2500, L100.0100, L501.4020 #### [facility] [address] [place], [address] Potassium [Moles/Vol] 4.4 mmol/L Normal 3.5-5.1 [facility] Comment on above: Order Comment: 'TROP ' Serial specimen #1, #2 or #3: 1 Performed By: #### L 500.2500, L100.0100, L501.4020 #### [facility] [address] [place], [address] Sodium [Moles/Vol] 137 mmol/L Normal 136-145 [facility] Comment on above: Order Comment: 'TROP ' Serial specimen #1, #2 or #3: 1 Performed By: #### L 500.2500, L100.0100, L501.4020 #### [facility] [address] [place], [address] Urea nitrogen [Mass/Vol] 20 mg/dL High 7-18 [facility] Comment on above: Order Comment: 'TROP ' Serial specimen #1, #2 or #3: 1 Performed By: #### L 500.2500, L100.0100, L501.4020 #### [facility] [address] [place], [address] Bedside Glucoseon 10-18-2023 FINGERSTICK GLU 289 mg/dL High 74-106 [facility] Comment on above: Result Comment: JOHN GEMENT OF PATIENT CARE PER NURSING PROTOCOL Performed By: #### L 501.080 #### [facility] [address] [place], [address] FINGERSTICK GLU 292 mg/dL High 74-106 [facility] Comment on above: Result Comment: JOHN GEMENT OF PATIENT CARE PER NURSING PROTOCOL Performed By: #### L 501.080 ####[facility] [address] [place], [address] FINGERSTICK GLU 403 mg/dL High 74-106 [facility] Comment on above: Result Comment: JOHN GEMENT OF PATIENT CARE PER NURSING PROTOCOL Performed By: #### L 501.080 #### [facility] [address] [place], [address] CBC W/Diff, Automatedon 09- Absolute Lymph 1.59 X10 3/uL Normal 0.83-4.51 [facility] Comment on above: Performed By: #### L 500.2500, L100.0100, L501.4020 #### [facility] [address] [place], [address] Absolute Neut 7.6 X10 3/uL Normal 2.0-7.7 [facility] Comment on above: Performed By: #### L 500.2500, L100.0100, L501.4020 #### [facility] [address] [place], [address] Basophils/100 WBC (Bld) 0.4 % Normal 0-1 [facility] Comment on above: Performed By: #### L 500.2500, L100.0100, L501.4020 #### [facility] [address] [place], [address] Eosinophils/100 WBC (Bld) 0.1 % Normal 0-5 [facility] Comment on above: Performed By: #### L 500.2500, L100.0100, L501.4020 #### [facility] [address] [place], [address] Erythrocyte distribution width (RBC) [Ratio] 12.4 % Normal 11.6-14.6 [facility] Comment on above: Performed By: #### L 500.2500, L100.0100, L501.4020 #### [facility] [address] [place], [address] Hematocrit (Bld) [Volume fraction] 43.9 % Normal 40-54 [facility] Comment on above: Performed By: #### L 500.2500, L100.0100, L501.4020 #### [facility] [address] [place], [address] Hemoglobin (Bld) [Mass/Vol] 14.6 g/dL Normal 13.0-16.5 [facility] Comment on above: Performed By: #### L 500.2500, L100.0100, L501.4020 #### [facility] [address] [place], [address] IG% 0.400 Normal 0.0-0.9 [facility] Comment on above: Result Comment: IG% - Immature Granulocytes (promyelocytes, myelocytes and metamyelocytes) > 1% indicates that a LEFT SHIFT is Present. Performed By: #### L 500.2500, L100.0100, L501.4020 #### [facility] [address] [place], [address] Lymphocytes/100 WBC (Bld) 15.8 % Low 19-41 [facility] Comment on above: Performed By: #### L 500.2500, L100.0100, L501.4020 #### [facility] [address] [place], [address] MCH (RBC) [Entitic mass] 30.1 pg Normal 27.0-32.0 [facility] Comment on above: Performed By: #### L 500.2500, L100.0100, L501.4020 #### [facility] [address] [place], [address] MCHC (RBC) [Mass/Vol] 33.3 g/dL Normal 32-36 [facility] Comment on above: Performed By: #### L 500.2500, L100.0100, L501.4020 #### [facility] [address] [place], [address] MCV (RBC) [Entitic vol] 90.5 fL Normal 80-94 [facility] Comment on above: Performed By: #### L 500.2500, L100.0100, L501.4020 #### [facility] [address] [place], [address] Monocytes/100 WBC (Bld) 7.8 % Normal 0-10 [facility] Comment on above: Performed By: #### L 500.2500, L100.0100, L501.4020 #### [facility] [address] [place], [address] Neutrophils/100 WBC (Bld) 75.5 % High 47-70 [facility] Comment on above: Performed By: #### L 500.2500, L100.0100, L501.4020 #### [facility] [address] [place], [address] Nucleated RBC (Bld) [#/Vol] 0 10*3/uL Normal 0-5 [facility] Comment on above: Performed By: #### L 500.2500, L100.0100, L501.4020 #### [facility] [address] [place], [address] Platelet mean volume (Bld) [Entitic vol] 11.2 fL Normal 6.2-12.0 [facility] Comment on above: Performed By: #### L 500.2500, L100.0100, L501.4020 #### [facility] [address] [place], [address] Platelets (Bld) [#/Vol] 229 10*3/uL Normal 150-450 [facility] Comment on above: Performed By: #### L 500.2500, L100.0100, L501.4020 #### [facility] [address] [place], [address] RBC (Bld) [#/Vol] 4.85 10*6/uL Normal 4.6-6.2 [facility] Comment on above: Performed By: #### L 500.2500, L100.0100, L501.4020 #### [facility] [address] [place], [address] RDW SD 41.2 fl Normal 35.1-43.9 [facility] Comment on above: Performed By: #### L 500.2500, L100.0100, L501.4020 #### [facility] [address] [place], [address] WBC (Bld) [#/Vol] 10.1 10*3/uL Normal 4.4-11.0 [facility] Comment on above: Performed By: #### L 500.2500, L100.0100, L501.4020 #### [facility] [address] [place], [address] Chest 1 View (Portable)on Chest 1 View (Portable) [facility] Imaging Services [address] [place] [address] Chest 1 View (Portable) MR#: [id number] Acct: [id number] Name: KIEL CATHERINE Rep #: [id number] : 1960 M 63 From: Gera stover DO PCP: Dr. Alyson Arthur MD Status: REG ER Study: Chest 1 View (Portable) Date of Exam: 10/18/23 Exam# [id number] Ordering Dr: J Carlos Correia DO [id number] EXAM: XR CHEST, 1 VIEW CLINICAL INDICATION: [...] Carlos Correia DO; Dr. Alyson Arthur MD Global Program Manager: Signed Normal [facility] Emergency Department Summary on 10-18-2023 Emergency Department Summary [facility] Medical Records Department [address] [place] [address] Emergency Department Summary 10/18/23 MR#: [id number] Acct: [id number] Name: KIEL CATHERINE Rep #: [id number] : 1960 63 From: J Carlos Correia DO PCP: Dr. Alyson Arthur MD Status:REG ER Location: ED HPI History of Present Illness Chief Complaint: Hyperglycemia [facility] Medical History (Updated 10/18/23 @ 19:07 by Bette Moore) Stroke Carpal tunnel syndrome, bilateral LVH (left ventricular hypertrophy) Essential (primary) hypertension Diabetic neuropathy Degenerative disc disease Atherosclerotic heart disease of rincon coronary artery without angina pectoris Bipolar 1 [...] blood pressure / 06/22/23 06/22/23 History heart tfpmivru-js-tjvwa 300 mcg-K 60 1 tab PO DAILY [...] Respiratory Effor (more content not included)... Normal [facility] L501.4020on 10-18-2023 TROPONIN-I HS 6 pg/mL Normal 3.0-78.0 [facility] Comment on above: Order Comment: 'TROP ' Serial specimen #1, #2 or #3: 1 Result Comment: Plea se Note: New Test Units and Gender Specific Reference Ranges. For more information see Policy Stat Procedure [place] High Sensitivity Troponin (TNIH) and attachments. Performed By: #### L 500.2500, L100.0100, L501.4020 #### [facility] [address] [place], [address] Lactic Acidon 10-18-2023 Lactate [Moles/Vol] 2.0 mmol/L Normal 0.4-1.9 [facility] Comment on above: Order Comment: Y Performed By: #### L 503.6005, L501.6900 #### [facility] [address] [place], [address] Urinalysis, Completeon 10-17 EPI,SQUAMOUS 0-5 SEEN Normal 0-5 [facility] Comment on above: Order Comment: CLEAN CATCH Performed By: #### L 400.0001 ####[facility] [address] [place], [address] BACTERIA 0 SEEN Normal None Seen [facility] Comment on above: Order Comment: CLEAN CATCH Performed By: #### L 400.0001 ####[facility] [address] [place], [address] Mucus Ql (Urine sed) 0 SEEN Normal [facility] Comment on above: Order Comment: CLEAN CATCH Performed By: #### L 400.0001 ####[facility] [address] [place], [address] RBC 0 SEEN Normal 0-5 [facility] Comment on above: Order Comment: CLEAN CATCH Performed By: #### L 400.0001 ####[facility] [address] [place], [address] WBC 0 SEEN Normal 0-5 [facility] Comment on above: Order Comment: CLEAN CATCH Performed By: #### L 400.0001 ####[facility] [address] [facility] [address] Venous Blood Gason 4 Blood Gas Type KAYLIE Normal [facility] Comment on above: Performed By: #### L 9000.0810 ####[facility] [address] [place], [address] CO2 [Moles/Vol] 34 mmol/L High 23-33 [facility] Comment on above: Performed By: #### L 9000.0810 ####[facility] [address] [place], [address] FI02 21.0 Normal [facility] Comment on above: Performed By: #### L 9000.0810 ####[facility] [address] [place], [address] HCO3 (Bld) [Moles/Vol] 32 mmol/L High 22-26 [facility] Comment on above: Performed By: #### L 9000.0810 ####[facility] [address] [place], [address] O2 Delivery Dev Not entered Normal [facility] Comment on above: Performed By: #### L 9000.0810 ####[facility] [address] [place], [address] SITE Not entered Normal [facility] Comment on above: Performed By: #### L 9000.0810 ####[facility] [address] [place], [address] VBG BE 7 mmol/L High -1.0-3.5 [facility] Comment on above: Performed By: #### L 9000.0810 ####[facility] [address] [place], [address] VBG pCO2 59.0 mmHg High 41-51 [facility] Comment on above: Performed By: #### L 9000.0810 ####[facility] [address] [place], [address] VBG pH 7.35 Normal 7.32-7.42 [facility] Comment on above: Performed By: #### L 9000.0810 ####[facility] [address] [place], [address] VBG PO2 37 mmHg Normal 25-40 [facility] Comment on above: Performed By: #### L 9000.0810 ####[facility] [address] [place], [address] VBG SO2 66 Normal 50-70 [facility] Comment on above: Performed By: #### L 9000.0810 ####[facility] [address] [place], [address] CTA Chest vessels W contrast Jasmeet 06-27-2023 IMPRESSION: The patient has undergone AVR (27 Epic plus) and Ascending repair (28 jazz-shield) on 03/20/2023. There are no findings to suggest anastomotic stenosis, infection, or leak. There are the typical postoperative changes present. Overall, the findings are appropriate for the recent postoperative state. Global Program Manager: PSCPriyank Transcribe Date/Time: Jun 27 2023 1:24P Dictated by : JIMY HERMOSILLO DO This examination was interpreted and the report reviewed and electronically signed by: JIMY HERMOSILLO DO on Jun 27 2023 2:47PM [facility] DIVISION OF RADIOLOGY * * *Final Report* [...] thoracic and aortic anatomy TECHNIQUE: SCANNER: [employer] Alpha photon-counting dual-source scanner PROTOCOL: Prospectively triggered [...] AORTIC DIMENSIONS: AORTIC ROOT: 4.0 cm measured sdojm-ox-vnsux mid ASCENDING THORACIC AORTA: graft distal ASCENDING THORACIC AORTA: 2.9 cm mid AORTIC ARCH: 2.3 cm mid DESCENDING THORACIC AORTA: 3.0 cm limited upper ABDOMEN: unremarkable BONES: degenerative changes of the thoracic spine Senior Software Qa Engineer (topogram) images: No additional findings. DIVISION OF RADIOLOGY Provider, [facility] - 06/27/2023 * * *Final Report* * [...] AORTIC DIMENSIONS: AORTIC ROOT: 4.0 cm measured sybxy-xg-ssbfo mid ASCENDING THORACIC AORTA: graft distal ASCENDING THORACIC AORTA: 2.9 cm mid AORTIC ARCH: 2.3 cm mid DESCENDING THORACIC AORTA: 3.0 cm limited upper ABDOMEN: unremarkable BONES: degenerative changes of the thoracic spine Senior Software Qa Engineer (topogram) images: No additional findings. IMPRESSION IMPRESSION: The patient has undergone AVR (27 Epic plus) and Ascending repair (28 jazz-shield) on 03/20/2023. There are no findings to suggest anastomotic stenosis, infection, or leak. There are the typical postoperative changes present. Overall, the findings are appropriate for the recent postoperative state. Global Program Manager: TOMMY Transcribe Date/Time: Jun 27 2023 1:24P Dictated by : JIMY HERMOSILLO DO This examination was interpreted and the report reviewed and electronically signed by: JIMY HERMOSILLO DO on Jun 27 2023 2:47PM EST [facility] Radiology Study observation (narrative) [facility] CTA Chest vessels W contrast IVOrdered By: [facility] Provider on 06-27-2023 [facility] Absolute lymphocyte countOrd ered By: Trip Fraire on 06-24-2023 Lymphocytes Auto (Unsp spec) [#/Vol] 1.49 10*3/uL 0.83-4.51 [facility] Automated lymphocyte count a s percentage of total leukocytesOrdered By: Trip Fraire on 06-24-2023 Lymphocytes/100 WBC Auto (Unsp spec) 24.7 % 19-41 [facility] Basophil percentageOrdered B y: Trip Fraire on 06-24-2023 Basophils/100 WBC (Bld) 0.8 % 0-1 [facility] Chloride [Moles/Vol] 101 mmol/L 98-107 [facility] Eosinophils/100 WBC (Bld) 1.2 % 0-5 [facility] Glucose [Mass/Vol] 169 mg/dL 74-106 [facility] Comment on above: Fasting Glucose resu lt greater than or equal to 126 mg/dL suggests DIABETES MELLITUS per A.D.A. criteria. Hemoglobin (Bld) [Mass/Vol] 12.6 g/dL 13.0-16.5 [facility] Monocytes/100 WBC (Bld) 11.6 % 0-10 [facility] Neutrophils (Bld) [#/Vol] 3.7 10*3/uL 2.0-7.7 [facility] Neutrophils/100 WBC (Bld) 61.5 % 47-70 [facility] Potassium [Moles/Vol] 2.8 mmol/L 3.5-5.1 [facility] Sodium [Moles/Vol] 137 mmol/L 136-145 [facility] WBC (Bld) [#/Vol] 6.0 10*3/uL 4.4-11.0 [facility] Determination of erythrocyte mean corpuscular volume (MCV)Ordered By: Trip Fraire on 06-24-2023 MCV (RBC) [Entitic vol] 89.9 fL 80-94 [facility] Erythrocyte distribution wid th ratioOrdered By: Trip Fraire on 06-24-2023 Erythrocyte distribution width (RBC) [Ratio] 14.3 % 11.6-14.6 [facility] Erythrocyte distribution wid th standard deviationOrdered By: Trip Fraire on 06-24-2023 Erythrocyte distribution width (RBC) [Entitic vol] 46.9 fL 35.1-43.9 [facility] Hematocrit Auto (Bld) [Volum e fraction]Ordered By: Trip Fraire on 06-24-2023 Hematocrit (Bld) [Volume fraction] 39.3 % 40-54 [facility] Immature granulocytes/100 WB C Auto (Bld)Ordered By: Trip Fraire on 06-24-2023 Immature granulocytes/100 WBC (Bld) 0.200 % 0.0-0.9 [facility] Comment on above: IG% - Immature Granu locytes (promyelocytes, myelocytes and metamyelocytes) > 1% indicates that a LEFT SHIFT is Present. Laboratory - Chemistry and C hemistry - challengeOrdered By: Trip Fraire on 06-24-2023 CO2 [Moles/Vol] 29.0 mmol/L 21.0-32.0 [facility] Urea nitrogen/Creatinine [Mass ratio] 28.6 mg/mg 10-20 [facility] Laboratory - Hematology and Cell countsOrdered By: Trip Fraire on 06-24-2023 MCH (RBC) [Entitic mass] 28.8 pg 27.0-32.0 [facility] MCHC (RBC) [Mass/Vol] 32.1 g/dL 32-36 [facility] Nucleated RBC/100 WBC (Bld) [Ratio] 0 % 0-5 [facility] Platelet mean volume (Bld) [Entitic vol] 10.9 fL 6.2-12.0 [facility] Platelets (Bld) [#/Vol] 227 10*3/uL 150-450 [facility] No Panel InformationOrdered By: Trip Fraire on 06-24-2023 Estimated Creatinine Clearance Calc 104.03 ml/min [facility] Estimated GFR (MDRD) Amer 120 mL/min >60 [facility] Comment on above: GFR Calc Estimated GFR (MDRD) Non-Af Amer 99 mL/min >60 [facility] Comment on above: Non- GFR Calc RBC Auto (Bld) [#/Vol]Ordere d By: Trip Fraire on 06-24-2023 RBC (Bld) [#/Vol] 4.37 10*6/uL 4.6-6.2 [facility] Serum or plasma calcium zay urement (mass/volume)Ordered By: Trip Fraire on 06-24-2023 Calcium [Mass/Vol] 8.7 mg/dL 8.5-10.1 [facility] Serum or plasma creatinine m easurement (mass/volume)Ordered By: Trip Fraire on 06-24-2023 Creatinine [Mass/Vol] 0.84 mg/dL 0.70-1.30 [facility] Comment on above: The validity of the calculated GFR & GFRAA in patients over 70 years has not been determined. Clinical correlation is essential. Serum or plasma urea nitroge n measurement (mass/volume)Ordered By: Trip Fraire on 06-24-2023 Urea nitrogen [Mass/Vol] 24 mg/dL 7-18 [facility] Thin prep Papanicolaou smear with manual screeningOrdered By: Trip Fraire on 06-24-2023 Thin prep Papanicolaou smear with manual screening 235 mg/dL 74-106 [facility] Comment on above: MANAGEMENT OF PATIEN T CARE PER NURSING PROTOCOL Thin prep Papanicolaou smear with manual screening 7 5-15 [facility] Absolute lymphocyte countOrd ered By: Carmen Matthews on 06-22-2023 Lymphocytes Auto (Unsp spec) [#/Vol] 1.61 10*3/uL 0.83-4.51 [facility] Automated lymphocyte count a s percentage of total leukocytesOrdered By: Carmen Matthesw on 06-22-2023 Lymphocytes/100 WBC Auto (Unsp spec) 12.5 % 19-41 [facility] Basophil percentageOrdered B y: Carmen Matthews on 06-22-2023 Basophil percentage 0-5 SEEN /hpf 0-5 [facility] Basophils/100 WBC (Bld) 0.4 % 0-1 [facility] Bilirubin [Mass/Vol] 0.50 mg/dL 0.20-1.00 [facility] Comment on above: For patients on eltr ombopag therapy, use of Dimension [place] TBIL is not recommended. Chloride [Moles/Vol] 97 mmol/L 98-107 [facility] Eosinophils/100 WBC (Bld) 0.1 % 0-5 [facility] Glucose [Mass/Vol] 305 mg/dL 74-106 [facility] Comment on above: Glucose result great er than or equal to 200 mg/dLsuggests DIABETES MELLITUS per A.D.A. criteria. Hemoglobin (Bld) [Mass/Vol] 16.0 g/dL 13.0-16.5 [facility] Monocytes/100 WBC (Bld) 9.6 % 0-10 [facility] Neutrophils (Bld) [#/Vol] 9.9 10*3/uL 2.0-7.7 [facility] Neutrophils/100 WBC (Bld) 77.0 % 47-70 [facility] Potassium [Moles/Vol] 3.6 mmol/L 3.5-5.1 [facility] Protein [Mass/Vol] 7.4 g/dL 6.4-8.2 [facility] Sodium [Moles/Vol] 136 mmol/L 136-145 [facility] WBC (Bld) [#/Vol] 12.8 10*3/uL 4.4-11.0 [facility] Bilirubin Test strip Ql (U)O rdered By: Carmen Matthews on 06-22-2023 Bilirubin Ql (U) 3 mg/dL Negative [facility] Comment on above: COLOR OF URINE MAY A FFECT DIPSTICK RESULTS. Determination of erythrocyte mean corpuscular volume (MCV)Ordered By: Carmen Matthews on 06-22-2023 MCV (RBC) [Entitic vol] 86.9 fL 80-94 [facility] Direct bilirubinOrdered By: Carmen Matthews on 06-22-2023 Bilirubin.direct [Mass/Vol] 0.20 mg/dL 0.00-0.30 [facility] Erythrocyte distribution wid th ratioOrdered By: Carmen Matthews on 06-22-2023 Erythrocyte distribution width (RBC) [Ratio] 14.2 % 11.6-14.6 [facility] Erythrocyte distribution wid th standard deviationOrdered By: Carmen Matthews on 06-22-2023 Erythrocyte distribution width (RBC) [Entitic vol] 45.3 fL 35.1-43.9 [facility] Hematocrit Auto (Bld) [Volum e fraction]Ordered By: Carmen Matthews on 06-22-2023 Hematocrit (Bld) [Volume fraction] 47.8 % 40-54 [facility] Hyaline casts LM.LPF (Urine sed) [#/Area]Ordered By: Carmen Matthews on 06-22-2023 Hyaline casts (Urine sed) [#/Area] 0 /[LPF] 0-5 [facility] Immature granulocytes/100 WB C Auto (Bld)Ordered By: Carmen Matthews on 06-22-2023 Immature granulocytes/100 WBC (Bld) 0.400 % 0.0-0.9 [facility] Comment on above: IG% - Immature Granu locytes (promyelocytes, myelocytes and metamyelocytes) > 1% indicates that a LEFT SHIFT is Present. Ketones Test strip Ql (U)Ord ered By: Carmen Matthews on 06-22-2023 Ketones Ql (U) 5 mg/dl Negative [facility] Laboratory - Chemistry and C hemistry - challengeOrdered By: Carmen Matthews on 06-22-2023 ALP [Catalytic activity/Vol] 129 U/L 45-117 [facility] ALT [Catalytic activity/Vol] 14 U/L 16-61 [facility] CO2 [Moles/Vol] 28.0 mmol/L 21.0-32.0 [facility] Globulin (S) [Mass/Vol] 4.5 g/dL 2.2-4.2 [facility] Lipase [Catalytic activity/Vol] 11 U/L 13-75 [facility] Comment on above: Please note:LIPASE r evised reference range effective 22. New Lipase methodology. Expected to produce lower values than the previous assay method. NEW Reference Range: 13 - 75 U/L Urea nitrogen/Creatinine [Mass ratio] 24.0 mg/mg 10-20 [facility] Laboratory - Hematology and Cell countsOrdered By: Carmen Matthews on 06-22-2023 MCH (RBC) [Entitic mass] 29.1 pg 27.0-32.0 [facility] MCHC (RBC) [Mass/Vol] 33.5 g/dL 32-36 [facility] Nucleated RBC/100 WBC (Bld) [Ratio] 0 % 0-5 [facility] Platelet mean volume (Bld) [Entitic vol] 10.9 fL 6.2-12.0 [facility] Platelets (Bld) [#/Vol] 352 10*3/uL 150-450 [facility] Mucus LM Ql (Urine sed)Order ed By: Carmen Matthews on 06-22-2023 Mucus Ql (Urine sed) 0 SEEN /hpf [facility] Nitrite Test strip Ql (U)Ord ered By: Carmen Matthews on 06-22-2023 Nitrite Ql (U) Negative Negative [facility] No Panel InformationOrdered By: Carmen Matthews on 06-22-2023 Urine RBC 0-5 SEEN /hpf 0-5 [facility] Estimated Creatinine Clearance Calc 67.87 ml/min [facility] Estimated GFR (MDRD) Amer 75 mL/min >60 [facility] Comment on above: GFR Calc Estimated GFR (MDRD) Non-Af Amer 62 mL/min >60 [facility] Comment on above: Non- GFR Calc Protein Test strip Ql (U)Ord ered By: Carmen Matthews on 06-22-2023 Protein Ql (U) 30 mg/dl Negative [facility] RBC Auto (Bld) [#/Vol]Ordere d By: Carmen Matthews on 06-22-2023 RBC (Bld) [#/Vol] 5.50 10*6/uL 4.6-6.2 [facility] Serum or plasma calcium zay urement (mass/volume)Ordered By: Carmen Matthews on 06-22-2023 Calcium [Mass/Vol] 9.5 mg/dL 8.5-10.1 [facility] Serum or plasma creatinine m easurement (mass/volume)Ordered By: Carmen Matthews on 06-22-2023 Creatinine [Mass/Vol] 1.25 mg/dL 0.70-1.30 [facility] Comment on above: The validity of the calculated GFR & GFRAA in patients over 70 years has not been determined. Clinical correlation is essential. Serum or plasma urea nitroge n measurement (mass/volume)Ordered By: Carmen Matthews on 06-22-2023 Urea nitrogen [Mass/Vol] 30 mg/dL 7-18 [facility] Squamous epithelial cells de tection in urine sediment by light microscopyOrdered By: Carmen Matthews on 06-22-2023 Epithelial cells.squamous LM Ql (Urine sed) 0-5 SEEN /hpf 0-5 [facility] Thin prep Papanicolaou smear with manual screeningOrdered By: Carmen Matthews on 06-22-2023 Thin prep Papanicolaou smear with manual screening 2.9 g/dL 3.2-5.0 [facility] Thin prep Papanicolaou smear with manual screening 16 U/L 15-37 [facility] Thin prep Papanicolaou smear with manual screening 11 5-15 [facility] Urine blood detectionOrdered By: Carmen Matthews on 06-22-2023 RBC Ql (U) Negative Negative [facility] Urine clarityOrdered By: Olimpia Matthews on 06-22-2023 Clarity (U) Clear Clear [facility] Urine color determinationOrd ered By: Carmen Matthews on 06-22-2023 Color (U) Yellow Yellow [facility] Urine glucose detectionOrder ed By: Carmen Matthews on 06-22-2023 Glucose Ql (U) Normal mg/dl Normal [facility] Urine leukocyte esterase det ection by dipstickOrdered By: Carmen Matthews on 06-22-2023 Leukocyte esterase Test strip Ql (U) Negative Negative [facility] Urine pHOrdered By: Carmen Matthews on 06-22-2023 pH (U) 5.0 [pH] 5.0 - 8.0 [facility] Urine sediment bacteria coun t by microscopy (number/high power field)Ordered By: Carmen Matthews on 06-22-2023 Bacteria LM.HPF (Urine sed) [#/Area] 1 /[HPF] None Seen [facility] Urine specific gravity measu rementOrdered By: Carmen Matthews on 06-22-2023 Specific gravity (U) [Rel density] 1.025 1.002-1.03 0 [facility] Urine urobilinogen measureme ntOrdered By: Carmen Matthews on 06-22-2023 Urobilinogen Ql (U) 1 mg/dl Normal [facility] Whole blood hemoglobin A1c/t otal hemoglobin ratio (mass fraction)Ordered By: Patrick Sharma on 06-22-2023 HbA1c (Bld) [Mass fraction] 7.3 % 3.8-5.6 [facility] Comment on above: Normal < 5.7 % Predi abetic 5.7 - 6.4 % Diabetic >or= 6.5 % Please note range changes. No Panel Informationon 05-28 IMPRESSION: No acute osseous abnormality Global Program Manager: TOMMY Transcribe Date/Time: May 29 2023 1:29P Dictated by : LILIA MITCHELL MD This examination was interpreted and the report reviewed and electronically signed by: LILIA MITCHELL MD on May 29 2023 1:33PM [facility] DIVISION OF RADIOLOGY Radiology Study observation (narrative) [facility] No Panel InformationOrdered By: Ccf Provider on 05-29-2023 [facility] XR Hand - right PA and [...] PA/LAT/OBL/SCAPH RT -- RIGHT with 3 (accession [id number]), 4 (accession [id number]) views on 3 (accession [id number]), 4 (accession [id number]) images Comparison: None RESULT: No acute fracture or dislocation. Mild narrowing at multiple interphalangeal joints with small marginal osteophytes. DIVISION OF RADIOLOGY Provider, [facility] - 05/29/2023 * * *Final Report* * [...] PA/LAT/OBL/SCAPH RT -- RIGHT with 3 (accession [id number]), 4 (accession [id number]) views on 3 (accession [id number]), 4 (accession [id number]) images Comparison: None RESULT: No acute fracture or dislocation. Mild narrowing at multiple interphalangeal joints with small marginal osteophytes. IMPRESSION IMPRESSION: No acute osseous abnormality Global Program Manager: TOMMY Transcribe Date/Time: May 29 2023 1:29P Dictated by : LILIA MITCHELL MD This examination was interpreted and the report reviewed and electronically signed by: LILIA MITCHELL MD on May 29 2023 1:33PM [facility] XR Wrist - right 4 Viewson 0 [...] PA/LAT/OBL/SCAPH RT -- RIGHT with 3 (accession [id number]), 4 (accession [id number]) views on 3 (accession [id number]), 4 (accession [id number]) images Comparison: None RESULT: No acute fracture or dislocation. Mild narrowing at multiple interphalangeal joints with small marginal osteophytes. DIVISION OF RADIOLOGY Provider, [facility] - 05/29/2023 * * *Final Report* * [...] PA/LAT/OBL/SCAPH RT -- RIGHT with 3 (accession [id number]), 4 (accession [id number]) views on 3 (accession [id number]), 4 (accession [id number]) images Comparison: None RESULT: No acute fracture or dislocation. Mild narrowing at multiple interphalangeal joints with small marginal osteophytes. IMPRESSION IMPRESSION: No acute osseous abnormality Global Program Manager[facility] Transcribe Date/Time: May 29 2023 1:29P Dictated by : LILIA MITCHELL MD This examination was interpreted and the report reviewed and electronically signed by: LILIA MITCHELL MD on May 29 2023 1:33PM EST [facility] XR Abdomen Supine and Uprigh ton 05-23-2023 IMPRESSION: Nonobstr uctive bowel gas pattern. Global Program Manager: [facility] Transcribe Date/Time: May 23 2023 5:22P Dictated by : MADAN ZACARIAS MD This examination was interpreted and the report reviewed and electronically signed by: MADAN ZCAARIAS MD on May 23 2023 5:23PM EST [...] advanced degenerative changes. DIVISION OF RADIOLOGY Provider, [facility] - 05/23/2023 * * *Final Report* * [...] changes. IMPRESSION IMPRESSION: Nonobstructive bowel gas pattern. Global Program Manager: TOMMY Transcribe Date/Time: May 23 2023 5:22P Dictated by : MADAN ZACARIAS MD This examination was interpreted and the report reviewed and electronically signed by: MADAN ZACARIAS MD on May 23 2023 5:23PM EST [facility] CBC W Auto Differential pane l (Bld)on 05-22-2023 Basophils (Bld) [#/Vol] 0.06 10*3/uL <0.11 k/uL [facility] Basophils/100 WBC (Bld) 0.5 % [facility] Differential cell count method Nom (Bld) Auto [facility] Eosinophils (Bld) [#/Vol] 0.07 10*3/uL <0.46 k/uL [facility] Eosinophils/100 WBC (Bld) 0.6 % [facility] Erythrocyte distribution width (RBC) [Ratio] 14.2 % 11.5 - 15.0 % [facility] Hematocrit (Bld) [Volume fraction] 44.1 % 39.0 - 51.0 % [facility] Hemoglobin (Bld) [Mass/Vol] 14.4 g/dL 13.0 - 17.0 g/dL [facility] Immature granulocytes (Bld) [#/Vol] 0.04 10*3/uL <0.10 k/uL [facility] Immature granulocytes/100 WBC (Bld) 0.4 % [facility] Lymphocytes (Bld) [#/Vol] 1.10 10*3/uL 1.00 - 4.00 k/uL [facility] Lymphocytes/100 WBC (Bld) 9.8 % [facility] MCH (RBC) [Entitic mass] 29.7 pg 26.0 - 34.0 pg [facility] MCHC (RBC) [Mass/Vol] 32.7 g/dL 30.5 - 36.0 g/dL [facility] MCV (RBC) [Entitic vol] 90.9 fL 80.0 - 100.0 fL [facility] Monocytes (Bld) [#/Vol] 0.54 10*3/uL <0.87 k/uL [facility] Monocytes/100 WBC (Bld) 4.8 % [facility] Neutrophils (Bld) [#/Vol] 9.36 10*3/uL High 1.45 - 7.50 k/uL [facility] Neutrophils/100 WBC (Bld) 83.9 % [facility] Nucleated RBC (Bld) [#/Vol] <0.01 k/uL [facility] Nucleated RBC/100 WBC (Bld) [Ratio] 0.0 /100 WBC [facility] Platelet mean volume (Bld) [Entitic vol] 11.0 fL 9.0 - 12.7 fL [facility] Platelets (Bld) [#/Vol] 195 10*3/uL 150 - 400 k/uL [facility] RBC (Bld) [#/Vol] 4.85 10*6/uL 4.20 - 6.00 m/uL [facility] WBC (Bld) [#/Vol] 11.17 10*3/uL High 3.70 - 11.00 k/uL [facility] HbA1c (Bld)on 05-22-2023 Average glucose Estimated from glycated hemoglobin (Bld) [Mass/Vol] 140 mg/dL [facility] HbA1c (Bld) [Mass fraction] 6.5 % High 4.3 - 5.6 % [facility] No Panel Informationon 05-21 Radiology Study observation (narrative) [facility] XR Chest PA and Lateralon IMPRESSION: Pulmonary vascular congestion. Cardiomegaly Global Program Manager: TOMMY Transcribe Date/Time: May 22 2023 4:06P Dictated by : IVETH SINGH MD This examination was interpreted and the report reviewed and electronically signed by: IVETH SINGH MD on May 22 2023 4:07PM [facility] DIVISION OF RADIOLOGY * * *Final Report* [...] stable. DIVISION OF RADIOLOGY Provider, Valeria Hdz [facility] - 05/22/2023 * * *Final Report* [...] stable. IMPRESSION IMPRESSION: Pulmonary vascular congestion. Cardiomegaly Global Program Manager: [facility] Transcribe Date/Time: May 22 2023 4:06P Dictated by : IVETH SINGH MD This examination was interpreted and the report reviewed and electronically signed by: IVETH SINGH MD on May 22 2023 4:07PM [facility] XR Chest PA and LateralOrder ed By: Ccf Provider on 05-22-2023 [facility] .Auto Diffon 05-20-2023 Basophil, Absolute 0.0 10 3/mcL Normal 0.0-0.3 [facility] ([place]) Comment on above: Performed By: #### A DIFF, CBC, MG, ANEU, BMP, GFR #### [address] [address] Basophils/100 WBC (Bld) 0.2 % Normal 0.0-2.5 [facility] ([place]) Comment on above: Performed By: #### A DIFF, CBC, MG, ANEU, BMP, GFR #### [address] [address] Eosinophil, Absolute 0.1 10 3/mcL Normal 0.0-0.7 [facility] ([place]) Comment on above: Performed By: #### A DIFF, CBC, MG, ANEU, BMP, GFR #### [address] [address] Eosinophils/100 WBC (Bld) 0.7 % Normal 0.0-6.0 [facility] ([place] Comment on above: Performed By: #### A DIFF, CBC, MG, ANEU, BMP, GFR #### [address] [address] Lymphocyte, Absolute 1.6 10 3/mcL Normal 0.9-4.3 [facility] ([place]) Comment on above: Performed By: #### A DIFF, CBC, MG, ANEU, BMP, GFR #### [address] [address] Lymphocytes/100 WBC (Bld) 11.8 % Low 20.0-40.0 [facility] ([place] Comment on above: Performed By: #### A DIFF, CBC, MG, ANEU, BMP, GFR #### [address] [address] Monocyte, Absolute 0.9 10 3/mcL Normal 0.1-1.4 [facility] ([place] Comment on above: Performed By: #### A DIFF, CBC, MG, ANEU, BMP, GFR #### [address] [address] Monocytes/100 WBC (Bld) 6.8 % Normal 2.0-13.0 [facility] ([place] Comment on above: Performed By: #### A DIFF, CBC, MG, ANEU, BMP, GFR #### [address] [address] Neutrophils/100 WBC (Bld) 80.5 % High 50.0-75.0 [facility] ([place] Comment on above: Performed By: #### A DIFF, CBC, MG, ANEU, BMP, GFR #### [address] [address] .GFRon 05-20-2023 GFR >60 Normal [facility] ([place] Comment on above: Result Comment: GFR Population [...] DIFF, CBC, MG, ANEU, BMP, GFR #### [address] [address] GFR Non- >60 Normal [facility] ([place] Comment on above: Result Comment: GFR Population [...] DIFF, CBC, MG, ANEU, BMP, GFR #### [address] [address] .NEUABSon 05-20-2023 Neutrophil, Absolute 10.9 10 3/mcL High 2.3-8.1 A [facility] ([place]) Comment on above: Performed By: #### A DIFF, CBC, MG, ANEU, BMP, GFR #### [address] [address] BMPon 05-20-2023 BUN/Creatinine Ratio 33.7 ratio High 10.0-22.0 [facility] ([place] Comment on above: Performed By: #### A DIFF, CBC, MG, ANEU, BMP, GFR #### [address] [address] Calcium [Mass/Vol] 9.0 mg/dL Normal 8.7-10.4 [facility] ([place]) Comment on above: Performed By: #### A DIFF, CBC, MG, ANEU, BMP, GFR #### [address] [address] Chloride [Moles/Vol] 105 mmol/L Normal 98-110 [facility] ([place] Comment on above: Performed By: #### A DIFF, CBC, MG, ANEU, BMP, GFR #### [address] [address] CO2 [Moles/Vol] 26 mmol/L Normal 22-32 [facility] ([place] Comment on above: Performed By: #### A DIFF, CBC, MG, ANEU, BMP, GFR #### [address] [address] Creatinine [Mass/Vol] 0.95 mg/dL Normal 0.60-1.40 [facility] ([place]) Comment on above: Performed By: #### A DIFF, CBC, MG, ANEU, BMP, GFR #### [address] [address] Electrolyte Balance 11.0 mEq/L Normal 4.0-15.0 [facility] ([place]) Comment on above: Performed By: #### A DIFF, CBC, MG, ANEU, BMP, GFR #### [address] [address] Glucose [Mass/Vol] 144 mg/dL High 82-115 [facility] ([place] Comment on above: Performed By: #### A DIFF, CBC, MG, ANEU, BMP, GFR #### [address] [address] Potassium [Moles/Vol] 4.1 mmol/L Normal 3.5-5.0 [facility] ([place]) Comment on above: Result Comment: Spec imen slightly hemolyzed. Performed By: #### A DIFF, CBC, MG, ANEU, BMP, GFR #### [place] [address] Sodium [Moles/Vol] 142 mmol/L Normal 136-145 [facility] ([place] Comment on above: Performed By: #### A DIFF, CBC, MG, ANEU, BMP, GFR #### [place] [id number] Urea nitrogen [Mass/Vol] 32.0 mg/dL High 8.0-22.0 [facility] ([place] Comment on above: Performed By: #### A DIFF, CBC, MG, ANEU, BMP, GFR #### [place] [address] CBCon 05-20-2023 Erythrocyte distribution width (RBC) [Ratio] 15.1 % Normal 11.5-15.5 [facility] ([place] Comment on above: Performed By: #### A DIFF, CBC, MG, ANEU, BMP, GFR #### [place] [address] Hematocrit (Bld) [Volume fraction] 40.8 % Normal 40.0-52.0 [facility] ([place] Comment on above: Performed By: #### A DIFF, CBC, MG, ANEU, BMP, GFR #### [place] [address] Hgb 13.4 G/dL Normal 13.0-17.5 [facility] ([place] Comment on above: Performed By: #### A DIFF, CBC, MG, ANEU, BMP, GFR #### [place] [address] MCH (RBC) [Entitic mass] 29.2 pg Normal 27.0-33.0 [facility] ([place] Comment on above: Performed By: #### A DIFF, CBC, MG, ANEU, BMP, GFR #### [place] [id number] MCHC 32.8 G/dL Normal 32.0-36.0 [facility] ([place] Comment on above: Performed By: #### A DIFF, CBC, MG, ANEU, BMP, GFR #### [address] [address] MCV (RBC) [Entitic vol] 88.9 fL Normal 81.0-100.0 [facility] ([place] Comment on above: Performed By: #### A DIFF, CBC, MG, ANEU, BMP, GFR #### [place] [id number] Platelet 195 10 3/mcL Normal 150-450 [facility] ([place] Comment on above: Performed By: #### A DIFF, CBC, MG, ANEU, BMP, GFR #### [place] [address] Platelet mean volume (Bld) [Entitic vol] 9.3 fL Normal 6.4-10.5 [facility] ([place] Comment on above: Performed By: #### A DIFF, CBC, MG, ANEU, BMP, GFR #### [place] [id number] RBC 4.59 10 6/mcL Normal 4.50-6.00 [facility] ([place] Comment on above: Performed By: #### A DIFF, CBC, MG, ANEU, BMP, GFR #### [place] [id number] WBC 13.5 10 3/mcL High 4.5-10.8 [facility] ([place] Comment on above: Performed By: #### A DIFF, CBC, MG, ANEU, BMP, GFR #### [place] [address] LABORATORYOrdered By: Bebeto Cruz on 05-20-2023 Blood Glucose Testing Reason Routine (05/20/23 11:47 AM) [employer] Work Phone: Glucose [Mass/Vol] 217 mg/dL High 82 - 115 mg/dL [employer] Work Phone: Blood Glucose Testing Reason Routine (05/20/23 9:40 AM) [employer] Work Phone: Glucose [Mass/Vol] 149 mg/dL High 82 - 115 mg/dL [employer] Work Phone: Blood Glucose Testing Reason Routine (05/20/23 8:07 AM) [employer] Work Phone: Glucose [Mass/Vol] 149 mg/dL High 82 - 115 mg/dL [employer] Work Phone: LABORATORYOrdered By: SYSTEM SYSTEM on [...] Ordering Provider: JESUS MANUEL MELENDREZ [facility] ([place]) XR ABDOMEN AP ORIGINAL EXAMINATION: ONE SUPINE [...] 05/20/2023 12:35:35 AM Ordering Provider: HA Garsia [facility] ([place]) .Auto Diffon 05-15-2023 Basophil, Absolute 0.0 10 3/mcL Normal 0.0-0.3 [facility] ([place]) Comment on above: Performed By: #### A DIFF, CBC, MG, ANEU, BMP, GFR #### [address] [address] Basophils/100 WBC (Bld) 0.4 % Normal 0.0-2.5 [facility] ([place] Comment on above: Performed By: #### A DIFF, CBC, MG, ANEU, BMP, GFR #### [address] [address] Eosinophil, Absolute 0.1 10 3/mcL Normal 0.0-0.7 [facility] ([place]) Comment on above: Performed By: #### A DIFF, CBC, MG, ANEU, BMP, GFR #### [address] [address] Eosinophils/100 WBC (Bld) 0.8 % Normal 0.0-6.0 [facility] ([place] Comment on above: Performed By: #### A DIFF, CBC, MG, ANEU, BMP, GFR #### [address] [address] Lymphocyte, Absolute 1.9 10 3/mcL Normal 0.9-4.3 [facility] ([place] Comment on above: Performed By: #### A DIFF, CBC, MG, ANEU, BMP, GFR #### [address] [address] Lymphocytes/100 WBC (Bld) 17.3 % Low 20.0-40.0 [facility] ([place] Comment on above: Performed By: #### A DIFF, CBC, MG, ANEU, BMP, GFR #### [address] [address] Monocyte, Absolute 1.2 10 3/mcL Normal 0.1-1.4 [facility] ([place] Comment on above: Performed By: #### A DIFF, CBC, MG, ANEU, BMP, GFR #### [address] [address] Monocytes/100 WBC (Bld) 11.2 % Normal 2.0-13.0 [facility] ([place] Comment on above: Performed By: #### A DIFF, CBC, MG, ANEU, BMP, GFR #### [address] [address] Neutrophils/100 WBC (Bld) 70.3 % Normal 50.0-75.0 [facility] ([place] Comment on above: Performed By: #### A DIFF, CBC, MG, ANEU, BMP, GFR #### [address] [address] .GFRon 05-15-2023 GFR >60 Normal [facility] ([place] Comment on above: Result Comment: GFR Population [...] DIFF, CBC, MG, ANEU, BMP, GFR #### [address] [address] GFR Non- >60 Normal [facility] ([place] Comment on above: Result Comment: GFR Population [...] DIFF, CBC, MG, ANEU, BMP, GFR #### [address] [address] .NEUABSon 05-15-2023 Neutrophil, Absolute 7.7 10 3/mcL Normal 2.3-8.1 [facility] ([place] Comment on above: Performed By: #### A DIFF, CBC, MG, ANEU, BMP, GFR #### [address] [address] BMPon 05-15-2023 BUN/Creatinine Ratio 19.4 ratio Normal 10.0-22.0 [facility] ([place] Comment on above: Performed By: #### A DIFF, CBC, MG, ANEU, BMP, GFR #### [address] [address] Calcium [Mass/Vol] 9.3 mg/dL Normal 8.7-10.4 [facility] ([place]) Comment on above: Performed By: #### A DIFF, CBC, MG, ANEU, BMP, GFR #### [address] [address] Chloride [Moles/Vol] 105 mmol/L Normal 98-110 [facility] ([place] Comment on above: Performed By: #### A DIFF, CBC, MG, ANEU, BMP, GFR #### [address] [address] CO2 [Moles/Vol] 33 mmol/L High 22-32 [facility] ([place] Comment on above: Performed By: #### A DIFF, CBC, MG, ANEU, BMP, GFR #### [address] [address] Creatinine [Mass/Vol] 1.08 mg/dL Normal 0.60-1.40 [facility] ([place]) Comment on above: Performed By: #### A DIFF, CBC, MG, ANEU, BMP, GFR #### [address] [address] Electrolyte Balance 5.0 mEq/L Normal 4.0-15.0 [facility] ([place]) Comment on above: Performed By: #### A DIFF, CBC, MG, ANEU, BMP, GFR #### [address] [address] Glucose [Mass/Vol] 121 mg/dL High 82-115 [facility] ([place] Comment on above: Performed By: #### A DIFF, CBC, MG, ANEU, BMP, GFR #### [address] [address] Potassium [Moles/Vol] 4.3 mmol/L Normal 3.5-5.0 [facility] ([place]) Comment on above: Performed By: #### A DIFF, CBC, MG, ANEU, BMP, GFR #### [address] [address] Sodium [Moles/Vol] 143 mmol/L Normal 136-145 [facility] ([place] Comment on above: Performed By: #### A DIFF, CBC, MG, ANEU, BMP, GFR #### [address] [address] Urea nitrogen [Mass/Vol] 21.0 mg/dL Normal 8.0-22.0 [facility] ([place] Comment on above: Performed By: #### A DIFF, CBC, MG, ANEU, BMP, GFR #### [place] [id number] CBCon 05-15-2023 Erythrocyte distribution width (RBC) [Ratio] 15.4 % Normal 11.5-15.5 [facility] ([place] Comment on above: Performed By: #### A DIFF, CBC, MG, ANEU, BMP, GFR #### [place] [address] Hematocrit (Bld) [Volume fraction] 40.7 % Normal 40.0-52.0 [facility] ([place] Comment on above: Performed By: #### A DIFF, CBC, MG, ANEU, BMP, GFR #### [place] [address] Hgb 13.6 G/dL Normal 13.0-17.5 [facility] ([place] Comment on above: Performed By: #### A DIFF, CBC, MG, ANEU, BMP, GFR #### [place] [address] MCH (RBC) [Entitic mass] 29.9 pg Normal 27.0-33.0 [facility] ([place] Comment on above: Performed By: #### A DIFF, CBC, MG, ANEU, BMP, GFR #### [place] [id number] MCHC 33.4 G/dL Normal 32.0-36.0 [facility] ([place] Comment on above: Performed By: #### A DIFF, CBC, MG, ANEU, BMP, GFR #### [place] [address] MCV (RBC) [Entitic vol] 89.6 fL Normal 81.0-100.0 [facility] ([place] Comment on above: Performed By: #### A DIFF, CBC, MG, ANEU, BMP, GFR #### [place] [id number] Platelet 222 10 3/mcL Normal 150-450 [facility] ([place] Comment on above: Performed By: #### A DIFF, CBC, MG, ANEU, BMP, GFR #### [place] [address] Platelet mean volume (Bld) [Entitic vol] 9.5 fL Normal 6.4-10.5 [facility] ([place] Comment on above: Performed By: #### A DIFF, CBC, MG, ANEU, BMP, GFR #### [place] [id number] RBC 4.54 10 6/mcL Normal 4.50-6.00 [facility] ([place] Comment on above: Performed By: #### A DIFF, CBC, MG, ANEU, BMP, GFR #### [place] [address] WBC 10.9 10 3/mcL High 4.5-10.8 [facility] ([place] Comment on above: Performed By: #### A DIFF, CBC, MG, ANEU, BMP, GFR #### [place] [address] LABORATORYOrdered By: SYSTEM SYSTEM on 05-15-2023 Basophils [...] (S/P/Bld) [Vol rate/Area] ml/min/1.73sqm Invalid Interpretation Code Crystalsol Chemistry S Comment on above: Interpretive Data: [...] (S/P/Bld) [Vol rate/Area] ml/min/1.73sqm Invalid Interpretation Code Crystalsol Chemistry S Comment on above: Interpretive Data: [...] on 05-13-2023 Time of Stated Blood Glucose [id number] [facility] Work Phone: .Auto Diffon 05-12-2023 Basophil, Absolute 0.0 10 3/mcL Normal 0.0-0.3 [facility] ([place] Comment on above: Performed By: #### Scott G, GFR, BMP #### [address] [address] Basophils/100 WBC (Bld) 0.7 % Normal 0.0-2.5 [facility] ([place] Comment on above: Performed By: #### Scott Lucero, GFR, BMP #### [address] [address] Eosinophil, Absolute 0.1 10 3/mcL Normal 0.0-0.7 [facility] ([place]) Comment on above: Performed By: #### Scott Lucero, GFR, BMP #### [address] [address] Eosinophils/100 WBC (Bld) 1.2 % Normal 0.0-6.0 [facility] ([place] Comment on above: Performed By: #### Scott Luceor, GFR, BMP #### [address] [address] Lymphocyte, Absolute 1.4 10 3/mcL Normal 0.9-4.3 [facility] ([place]) Comment on above: Performed By: #### Scott Lucero, GFR, BMP #### [address] [address] Lymphocytes/100 WBC (Bld) 23.4 % Normal 20.0-40.0 [facility] ([place] Comment on above: Performed By: #### Scott G, GFR, BMP #### [address] [address] Monocyte, Absolute 0.8 10 3/mcL Normal 0.1-1.4 [facility] ([place] Comment on above: Performed By: #### Scott G, GFR, BMP #### [address] [address] Monocytes/100 WBC (Bld) 13.0 % Normal 2.0-13.0 [facility] ([place] Comment on above: Performed By: #### Scott G, GFR, BMP #### [address] [address] Neutrophils/100 WBC (Bld) 61.7 % Normal 50.0-75.0 [facility] ([place] Comment on above: Performed By: #### Scott Lucero, GFR, BMP #### [address] [address] .GFRon 05-12-2023 GFR >60 Normal [facility] ([place] Comment on above: Result Comment: GFR Population [...] By: #### Scott Lucero, GFR, BMP #### [address] [address] GFR Non- >60 Normal [facility] ([place] Comment on above: Result Comment: GFR Population [...] By: #### Scott G, GFR, BMP #### [address] [address] .NEUABSon 05-12-2023 Neutrophil, Absolute 3.6 10 3/mcL Normal 2.3-8.1 [facility] ([place]) Comment on above: Performed By: #### Scott G, GFR, BMP #### [address] [address] [facility] BUN/Creatinine Ratio 25.0 ratio High 10.0-22.0 [facility] ([place] Comment on above: Performed By: #### Scott G, GFR, BMP #### [address] [address] Calcium [Mass/Vol] 8.4 mg/dL Low 8.7-10.4 [facility] ([place]) Comment on above: Performed By: #### Scott G, GFR, BMP #### [address] [address] Chloride [Moles/Vol] 109 mmol/L Normal 98-110 [facility] ([place] Comment on above: Performed By: #### Scott G, GFR, BMP #### [address] [address] CO2 [Moles/Vol] 29 mmol/L Normal 22-32 [facility] ([place] Comment on above: Performed By: #### Scott G, GFR, BMP #### [address] [address] Creatinine [Mass/Vol] 0.96 mg/dL Normal 0.60-1.40 [facility] ([place]) Comment on above: Performed By: #### Scott G, GFR, BMP #### [address] [address] Electrolyte Balance 3.0 mEq/L Low 4.0-15.0 [facility] ([place]) Comment on above: Performed By: #### Scott G, GFR, BMP #### [address] [address] Glucose [Mass/Vol] 71 mg/dL Low 82-115 [facility] ([place]) Comment on above: Performed By: #### Scott G, GFR, BMP #### [address] [address] Potassium [Moles/Vol] 4.1 mmol/L Normal 3.5-5.0 [facility] ([place]) Comment on above: Performed By: #### M G, GFR, BMP #### [place] [id number] Sodium [Moles/Vol] 141 mmol/L Normal 136-145 [facility] ([place]) Comment on above: Performed By: #### M Nic, GFR, BMP #### [place] [address] Urea nitrogen [Mass/Vol] 24.0 mg/dL High 8.0-22.0 [facility] ([place] Comment on above: Performed By: #### M G, GFR, BMP #### [place] [address] CBCon 05-12-2023 Erythrocyte distribution width (RBC) [Ratio] 15.3 % Normal 11.5-15.5 [facility] ([place] Comment on above: Performed By: #### Scott Lucero, GFR, BMP #### [place] [address] Hematocrit (Bld) [Volume fraction] 35.6 % Low 40.0-52.0 [facility] ([place] Comment on above: Performed By: #### M G, GFR, BMP #### [place] [address] Hgb 12.2 G/dL Low 13.0-17.5 [facility] ([place] Comment on above: Performed By: #### Scott G, GFR, BMP #### [place] [address] MCH (RBC) [Entitic mass] 30.6 pg Normal 27.0-33.0 [facility] ([place] Comment on above: Performed By: #### M G, GFR, BMP #### [place] [address] MCHC 34.2 G/dL Normal 32.0-36.0 [facility] ([place] Comment on above: Performed By: #### M G, GFR, BMP #### [place] [address] MCV (RBC) [Entitic vol] 89.4 fL Normal 81.0-100.0 [facility] ([place] Comment on above: Performed By: #### M G, GFR, BMP #### [address] [address] Platelet 209 10 3/mcL Normal 150-450 [facility] ([place] Comment on above: Performed By: #### M G, GFR, BMP #### [place] [address] Platelet mean volume (Bld) [Entitic vol] 9.4 fL Normal 6.4-10.5 [facility] ([place] Comment on above: Performed By: #### M Nic, GFR, BMP #### [address] [address] RBC 3.99 10 6/mcL Low 4.50-6.00 [facility] ([place] Comment on above: Performed By: #### Scott Lucero, GFR, BMP #### [address] [address] WBC 5.8 10 3/mcL Normal 4.5-10.8 [facility] ([place] Comment on above: Performed By: #### M G, GFR, BMP #### [place] [address] LABORATORYOrdered By: SYSTEM SYSTEM on 05-12-2023 Basophils [...] (S/P/Bld) [Vol rate/Area] ml/min/1.73sqm Invalid Interpretation Code Crystalsol Chemistry S Comment on above: Interpretive Data: [...] 05/11/2023 9:31:37 AM Ordering Provider: ALLISON Garsia [facility] ([place] ABDOMEN/PELVIS W/O CONTRA STon 05-09-2023 CT [...] PM Ordering Provider: MALIA BECERRIL [facility] ([place]) XR ABDOMEN APon 05-09-2023 XR ABDOMEN AP [...] 05/09/2023 9:53:10 AM Ordering Provider: MALIA Garsia [facility] ([place]) .GFRon 05-04-2023 GFR Non- >60 Normal [facility] ([place] Comment on above: Result Comment: GFR Population [...] DIFF, CBC, MG, ANEU, BMP, GFR #### [address] [address] GFR >60 Normal [facility] ([place] Comment on above: Result Comment: GFR Population [...] DIFF, CBC, MG, ANEU, BMP, GFR #### [address] [address] BMPon 05-04-2023 BUN/Creatinine Ratio 23.7 ratio High 10.0-22.0 [facility] ([place] Comment on above: Performed By: #### A DIFF, CBC, MG, ANEU, BMP, GFR #### [address] [address] Calcium [Mass/Vol] 9.0 mg/dL Normal 8.7-10.4 [facility] ([place]) Comment on above: Performed By: #### A DIFF, CBC, MG, ANEU, BMP, GFR #### [address] [address] Chloride [Moles/Vol] 107 mmol/L Normal 98-110 [facility] ([place] Comment on above: Performed By: #### A DIFF, CBC, MG, ANEU, BMP, GFR #### [address] [address] CO2 [Moles/Vol] 26 mmol/L Normal 22-32 [facility] ([place] Comment on above: Performed By: #### A DIFF, CBC, MG, ANEU, BMP, GFR #### [address] [address] Creatinine [Mass/Vol] 0.76 mg/dL Normal 0.60-1.40 [facility] ([place]) Comment on above: Performed By: #### A DIFF, CBC, MG, ANEU, BMP, GFR #### [place] [address] Electrolyte Balance 8.0 mEq/L Normal 4.0-15.0 [facility] ([place] Comment on above: Performed By: #### A DIFF, CBC, MG, ANEU, BMP, GFR #### [place] [address] Glucose [Mass/Vol] 132 mg/dL High 82-115 [facility] ([place] Comment on above: Performed By: #### A DIFF, CBC, MG, ANEU, BMP, GFR #### [place] [address] Potassium [Moles/Vol] 4.4 mmol/L Normal 3.5-5.0 [facility] ([place]) Comment on above: Performed By: #### A DIFF, CBC, MG, ANEU, BMP, GFR #### [address] [address] Sodium [Moles/Vol] 141 mmol/L Normal 136-145 [facility] ([place] Comment on above: Performed By: #### A DIFF, CBC, MG, ANEU, BMP, GFR #### [address] [address] Urea nitrogen [Mass/Vol] 18.0 mg/dL Normal 8.0-22.0 [facility] ([place] Comment on above: Performed By: #### A DIFF, CBC, MG, ANEU, BMP, GFR #### [address] [address] LABORATORYOrdered By: Rosette Salmon on 05-04-2023 Natriuretic peptide.B prohormone N-Terminal [Mass/Vol] 442 pg/mL Normal 0 - 900 pg/mL Auto Chem SS Comment on above: Interpretive Data: N T-proBNP results of less than 300 pg/mL effectively rules out acute congestive heart failure with 99% negative predictive value. PBNPon 05-04-2023 Natriuretic peptide B (Bld) [Mass/Vol] 442 pg/mL Normal 0-900 [facility] ([place] Comment on above: Result Comment: NT-p roBNP results of less than 300 pg/mL effectively rules out acute congestive heart failure with 99% negative predictive value. Performed By: #### A DIFF, CBC, MG, ANEU, BMP, GFR #### [address] [address] LABORATORYOrdered By: Magda Guy on 05-01-2023 Glucose [Mass/Vol] 192 mg/dL [facility] Work Phone: .Auto Diffon 04-28-2023 Basophil, Absolute 0.1 10 3/mcL Normal 0.0-0.3 [facility] ([place] Comment on above: Performed By: #### M G, GFR, BMP #### [address] [address] Basophils/100 WBC (Bld) 0.6 % Normal 0.0-2.5 [facility] ([place] Comment on above: Performed By: #### M G, GFR, BMP #### [address] [address] Eosinophil, Absolute 0.1 10 3/mcL Normal 0.0-0.7 [facility] ([place]) Comment on above: Performed By: #### M G, GFR, BMP #### [address] [address] Eosinophils/100 WBC (Bld) 0.6 % Normal 0.0-6.0 [facility] ([place] Comment on above: Performed By: #### M G, GFR, BMP #### [address] [address] Lymphocyte, Absolute 1.2 10 3/mcL Normal 0.9-4.3 [facility] ([place] Comment on above: Performed By: #### M G, GFR, BMP #### [address] [address] Lymphocytes/100 WBC (Bld) 12.2 % Low 20.0-40.0 [facility] ([place] Comment on above: Performed By: #### M G, GFR, BMP #### [address] [address] Monocyte, Absolute 1.0 10 3/mcL Normal 0.1-1.4 [facility] ([place] Comment on above: Performed By: #### M G, GFR, BMP #### [address] [address] Monocytes/100 WBC (Bld) 10.0 % Normal 2.0-13.0 [facility] ([place] Comment on above: Performed By: #### M G, GFR, BMP #### [address] [address] Neutrophils/100 WBC (Bld) 76.6 % High 50.0-75.0 [facility] ([place] Comment on above: Performed By: #### M G, GFR, BMP #### [address] [address] .GFRon 04-28-2023 GFR >60 Normal [facility] ([place] Comment on above: Result Comment: GFR [...] By: #### M G, GFR, BMP #### [address] [address] GFR Non- >60 Normal [facility] ([place] Comment on above: Result Comment: GFR Population [...] By: #### Scott Lucero, GFR, BMP #### [address] [address] .NEUABSon 04-28-2023 Neutrophil, Absolute 7.5 10 3/mcL Normal 2.3-8.1 [facility] ([place]) Comment on above: Performed By: #### Scott Lucero, GFR, BMP #### [address] [address] BMPon 04-28-2023 BUN/Creatinine Ratio 30.0 ratio High 10.0-22.0 [facility] ([place] Comment on above: Performed By: #### Scott Lucero, GFR, BMP #### [address] [address] Calcium [Mass/Vol] 8.7 mg/dL Normal 8.7-10.4 [facility] ([place]) Comment on above: Performed By: #### Scott Lucero, GFR, BMP #### [address] [address] Chloride [Moles/Vol] 101 mmol/L Normal 98-110 [facility] ([place] Comment on above: Performed By: #### Scott Lucero, GFR, BMP #### [address] [address] CO2 [Moles/Vol] 32 mmol/L Normal 22-32 [facility] ([place] Comment on above: Performed By: #### Scott Lucero, GFR, BMP #### [address] [address] Creatinine [Mass/Vol] 0.70 mg/dL Normal 0.60-1.40 [facility] ([place]) Comment on above: Performed By: #### M Nic, GFR, BMP #### [address] [address] Electrolyte Balance 6.0 mEq/L Normal 4.0-15.0 [facility] ([place]) Comment on above: Performed By: #### M Nic, GFR, BMP #### [address] [address] Glucose [Mass/Vol] 248 mg/dL High 82-115 [facility] ([place] Comment on above: Performed By: #### M Nic, GFR, BMP #### [address] [address] Potassium [Moles/Vol] 4.1 mmol/L Normal 3.5-5.0 [facility] ([place]) Comment on above: Result Comment: Spec imen slightly hemolyzed. Performed By: #### M Nic, GFR, BMP #### [address] [address] Sodium [Moles/Vol] 139 mmol/L Normal 136-145 [facility] ([place] Comment on above: Performed By: #### M Nic, GFR, BMP #### [address] [address] Urea nitrogen [Mass/Vol] 21.0 mg/dL Normal 8.0-22.0 [facility] ([place] Comment on above: Performed By: #### M Nic, GFR, BMP #### [address] [address] CBCon 04-28-2023 Erythrocyte distribution width (RBC) [Ratio] 14.3 % Normal 11.5-15.5 [facility] ([place] Comment on above: Performed By: #### M Nic, GFR, BMP #### [address] [address] Hematocrit (Bld) [Volume fraction] 38.6 % Low 40.0-52.0 [facility] ([place] Comment on above: Performed By: #### Scott G, GFR, BMP #### [place] [address] Hgb 12.9 G/dL Low 13.0-17.5 [facility] ([place] Comment on above: Performed By: #### M G, GFR, BMP #### [place] [id number] MCH (RBC) [Entitic mass] 30.0 pg Normal 27.0-33.0 [facility] ([place] Comment on above: Performed By: #### Scott G, GFR, BMP #### [place] [address] MCHC 33.5 G/dL Normal 32.0-36.0 [facility] ([place] Comment on above: Performed By: #### Scott G, GFR, BMP #### [place] [address] MCV (RBC) [Entitic vol] 89.6 fL Normal 81.0-100.0 [facility] ([place] Comment on above: Performed By: #### Scott G, GFR, BMP #### [place] [address] Platelet 250 10 3/mcL Normal 150-450 [facility] ([place] Comment on above: Performed By: #### Scott G, GFR, BMP #### [place] [address] Platelet mean volume (Bld) [Entitic vol] 9.6 fL Normal 6.4-10.5 [facility] ([place] Comment on above: Performed By: #### M G, GFR, BMP #### [place] [address] RBC 4.31 10 6/mcL Low 4.50-6.00 [facility] ([place] Comment on above: Performed By: #### M G, GFR, BMP #### [place] [address] WBC 9.8 10 3/mcL Normal 4.5-10.8 [facility] ([place] Comment on above: Performed By: #### Scott Lucero, GFR, BMP #### [address] [address] .GFRon 04-27-2023 GFR >60 Normal [facility] ([place] Comment on above: Result Comment: GFR Population [...] By: #### Scott Lucero, GFR, BMP #### [address] [address] GFR Non- >60 Normal [facility] ([place] Comment on above: Result Comment: GFR Population [...] mL/min/1.73 square meters Performed By: #### Scott uLcero, GFR, BMP #### [address] [address] BMPon 04-27-2023 BUN/Creatinine Ratio 27.1 ratio High 10.0-22.0 [facility] ([place] Comment on above: Performed By: #### Scott Lucero, GFR, BMP #### [address] [address] Calcium [Mass/Vol] 8.2 mg/dL Low 8.7-10.4 [facility] ([place] Comment on above: Performed By: #### Scott Lucero, GFR, BMP #### [address] [address] Chloride [Moles/Vol] 104 mmol/L Normal 98-110 [facility] ([place] Comment on above: Performed By: #### Scott Lucero, GFR, BMP #### [address] [address] CO2 [Moles/Vol] 29 mmol/L Normal 22-32 [facility] ([place] Comment on above: Performed By: #### Scott Lucero, GFR, BMP #### [address] [address] Creatinine [Mass/Vol] 0.70 mg/dL Normal 0.60-1.40 [facility] ([place] Comment on above: Performed By: #### Scott Lucero, GFR, BMP #### [address] [address] Electrolyte Balance 8.0 mEq/L Normal 4.0-15.0 [facility] ([place] Comment on above: Performed By: #### Scott Lucero, GFR, BMP #### [address] [address] Glucose [Mass/Vol] 213 mg/dL High 82-115 [facility] ([place] Comment on above: Performed By: #### Scott Lucero, GFR, BMP #### [address] [address] Potassium [Moles/Vol] 3.7 mmol/L Normal 3.5-5.0 [facility] ([place] Comment on above: Result Comment: Spec imen slightly hemolyzed. Performed By: #### Scott Lucero, GFR, BMP #### [address] [address] Sodium [Moles/Vol] 141 mmol/L Normal 136-145 [facility] ([place] Comment on above: Performed By: #### Scott Lucero, GFR, BMP #### [address] [place], [place] [address] Urea nitrogen [Mass/Vol] 19.0 mg/dL Normal 8.0-22.0 [facility] ([place] Comment on above: Performed By: #### M Nic, GFR, BMP #### [facility] [address] [place] [address] LABORATORYOrdered By: Abel weinstein on 04-27-2023 Blood Glucose Testing Reason Routine (04/27/23 4:21 PM) [facility] Work Phone: Glucose [Mass/Vol] 215 mg/dL High 82 - 115 mg/dL [facility] Work Phone: LABORATORYOrdered By: Arnulfo Allen on 04-27-2023 Blood Glucose Testing Reason Routine (04/27/23 12:16 PM) [facility] Work Phone: Glucose [Mass/Vol] 296 mg/dL High 82 - 115 mg/dL [facility] Work Phone: Blood Glucose Testing Reason Routine (04/27/23 8:38 AM) [facility] Work Phone: Glucose [Mass/Vol] 209 mg/dL High 82 - 115 mg/dL [facility] Work Phone: LABORATORYOrdered By: SYSTEM SYSTEM [...] 04-27-2023 Magnesium [Mass/Vol] 1.9 mg/dL Normal 1.6-2.4 [facility] ([place] Comment on above: Performed By: #### Scott Lucero GFR, BMP #### [address] [address] XR CHEST 1 VIEWon 04-27-2023 XR CHEST [...] 04/27/2023 10:19:36 AM Ordering Provider: URMILA Garsia [facility] ([place] .Auto Diffon 04-26-2023 Basophil, Absolute 0.0 10 3/mcL Normal 0.0-0.3 [facility] ([place] Comment on above: Performed By: #### Scott Lucero GFR, BMP #### [address] [address] Basophils/100 WBC (Bld) 0.4 % Normal 0.0-2.5 [facility] ([place] Comment on above: Performed By: #### Scott Lucero GFR, BMP #### [address] [address] Eosinophil, Absolute 0.1 10 3/mcL Normal 0.0-0.7 [facility] ([place] Comment on above: Performed By: #### Scott Lucero GFR, BMP #### [address] [address] Eosinophils/100 WBC (Bld) 0.8 % Normal 0.0-6.0 [facility] ([place] Comment on above: Performed By: #### M G, GFR, BMP #### [address] [address] Lymphocyte, Absolute 1.1 10 3/mcL Normal 0.9-4.3 [facility] ([place] Comment on above: Performed By: #### M G, GFR, BMP #### [address] [address] Lymphocytes/100 WBC (Bld) 15.2 % Low 20.0-40.0 [facility] ([place] Comment on above: Performed By: #### M G, GFR, BMP #### [address] [address] Monocyte, Absolute 0.8 10 3/mcL Normal 0.1-1.4 [facility] ([place]) Comment on above: Performed By: #### Scott G, GFR, BMP #### [address] [address] Monocytes/100 WBC (Bld) 10.7 % Normal 2.0-13.0 [facility] ([place]) Comment on above: Performed By: #### M G, GFR, BMP #### [address] [address] Neutrophils/100 WBC (Bld) 72.9 % Normal 50.0-75.0 [facility] ([place] Comment on above: Performed By: #### Scott G, GFR, BMP #### [address] [address] .GFRon 04-26-2023 GFR >60 Normal [facility] ([place]) Comment on above: Result Comment: GFR [...] DIFF, CBC, MG, ANEU, BMP, GFR #### [address] [address] GFR Non- >60 Normal [facility] ([place] Comment on above: Result Comment: GFR Population [...] DIFF, CBC, MG, ANEU, BMP, GFR #### [address] [address] .NEUABSon 04-26-2023 Neutrophil, Absolute 5.1 10 3/mcL Normal 2.3-8.1 [facility] ([place]) Comment on above: Performed By: #### M G, GFR, BMP #### [address] [address] BMPon 04-26-2023 BUN/Creatinine Ratio 24.3 ratio High 10.0-22.0 [facility] ([place] Comment on above: Performed By: #### A DIFF, CBC, MG, ANEU, BMP, GFR #### [address] [address] Calcium [Mass/Vol] 8.2 mg/dL Low 8.7-10.4 [facility] ([place] Comment on above: Performed By: #### A DIFF, CBC, MG, ANEU, BMP, GFR #### [address] [address] Chloride [Moles/Vol] 104 mmol/L Normal 98-110 [facility] ([place] Comment on above: Performed By: #### A DIFF, CBC, MG, ANEU, BMP, GFR #### [address] [address] CO2 [Moles/Vol] 29 mmol/L Normal 22-32 [facility] ([place] Comment on above: Performed By: #### A DIFF, CBC, MG, ANEU, BMP, GFR #### [address] [address] Creatinine [Mass/Vol] 0.70 mg/dL Normal 0.60-1.40 [facility] ([place]) Comment on above: Performed By: #### A DIFF, CBC, MG, ANEU, BMP, GFR #### [address] [address] Electrolyte Balance 8.0 mEq/L Normal 4.0-15.0 [facility] ([place] Comment on above: Performed By: #### A DIFF, CBC, MG, ANEU, BMP, GFR #### [address] [address] Glucose [Mass/Vol] 190 mg/dL High 82-115 [facility] ([place] Comment on above: Performed By: #### A DIFF, CBC, MG, ANEU, BMP, GFR #### [address] [address] Potassium [Moles/Vol] 3.6 mmol/L Normal 3.5-5.0 [facility] ([place] Comment on above: Performed By: #### A DIFF, CBC, MG, ANEU, BMP, GFR #### [address] [address] Sodium [Moles/Vol] 141 mmol/L Normal 136-145 [facility] ([place] Comment on above: Performed By: #### A DIFF, CBC, MG, ANEU, BMP, GFR #### [address] [address] Urea nitrogen [Mass/Vol] 17.0 mg/dL Normal 8.0-22.0 [facility] ([place] Comment on above: Performed By: #### A DIFF, CBC, MG, ANEU, BMP, GFR #### [address] [address] CBCon 04-26-2023 Erythrocyte distribution width (RBC) [Ratio] 14.6 % Normal 11.5-15.5 [facility] ([place] Comment on above: Performed By: #### M G, GFR, BMP #### [place] [address] Hematocrit (Bld) [Volume fraction] 34.0 % Low 40.0-52.0 [facility] ([place] Comment on above: Performed By: #### M G, GFR, BMP #### [place] [address] Hgb 11.6 G/dL Low 13.0-17.5 [facility] ([place] Comment on above: Performed By: #### M G, GFR, BMP #### [place] [address] MCH (RBC) [Entitic mass] 30.5 pg Normal 27.0-33.0 [facility] ([place] Comment on above: Performed By: #### M G, GFR, BMP #### [place] [address] MCHC 34.1 G/dL Normal 32.0-36.0 [facility] ([place] Comment on above: Performed By: #### M G, GFR, BMP #### [place] [address] MCV (RBC) [Entitic vol] 89.5 fL Normal 81.0-100.0 [facility] ([place] Comment on above: Performed By: #### M G, GFR, BMP #### [place] [id number] Platelet 189 10 3/mcL Normal 150-450 [facility] ([place] Comment on above: Performed By: #### M G, GFR, BMP #### [place] [address] Platelet mean volume (Bld) [Entitic vol] 9.8 fL Normal 6.4-10.5 [facility] ([place] Comment on above: Performed By: #### M G, GFR, BMP #### [facility] [address] [place] [address] RBC 3.80 10 6/mcL Low 4.50-6.00 [facility] ([place] Comment on above: Performed By: #### M G, GFR, BMP #### [facility] [address] [place] [address] WBC 7.0 10 3/mcL Normal 4.5-10.8 [facility] ([place] Comment on above: Performed By: #### M G, GFR, BMP #### [facility] [address] [place] [address] LABORATORYOrdered By: Manuel Mathews on 04-26-2023 Blood Glucose Interventions Administered agent to decrease blood sugar (04/26/23 8:09 AM) [facility] Work Phone: LABORATORYOrdered By: SYSTEM SYSTEM [...] (S/P/Bld) [Vol rate/Area] ml/min/1.73sqm Invalid Interpretation Code Crystalsol Chemistry S Comment on above: Interpretive Data: [...] (S/P/Bld) [Vol rate/Area] ml/min/1.73sqm Invalid Interpretation Code Crystalsol Chemistry S Comment on above: Interpretive Data: [...] 04-26-2023 Magnesium [Mass/Vol] 1.8 mg/dL Normal 1.6-2.4 [facility] ([place] Comment on above: Performed By: #### A DIFF, CBC, MG, ANEU, BMP, GFR #### [address] [address] .Auto Diffon 04-25-2023 Basophil, Absolute 0.0 10 3/mcL Normal 0.0-0.3 [facility] ([place] Comment on above: Performed By: #### P BNP #### [address] [address] Basophils/100 WBC (Bld) 0.2 % Normal 0.0-2.5 [facility] ([place] Comment on above: Performed By: #### P BNP #### [address] [address] Eosinophil, Absolute 0.0 10 3/mcL Normal 0.0-0.7 [facility] ([place] Comment on above: Performed By: #### P BNP #### [address] [address] Eosinophils/100 WBC (Bld) 0.7 % Normal 0.0-6.0 [facility] ([place] Comment on above: Performed By: #### P BNP #### [address] [address] Lymphocyte, Absolute 0.8 10 3/mcL Low 0.9-4.3 [facility] ([place] Comment on above: Performed By: #### P BNP #### [address] [address] Lymphocytes/100 WBC (Bld) 12.8 % Low 20.0-40.0 [facility] ([place] Comment on above: Performed By: #### P BNP #### [address] [address] Monocyte, Absolute 0.7 10 3/mcL Normal 0.1-1.4 [facility] ([place] Comment on above: Performed By: #### P BNP #### [address] [address] Monocytes/100 WBC (Bld) 11.3 % Normal 2.0-13.0 [facility] ([place] Comment on above: Performed By: #### P BNP #### [address] [address] Neutrophils/100 WBC (Bld) 75.0 % Normal 50.0-75.0 [facility] ([place] Comment on above: Performed By: #### P BNP #### [address] [address] .GFRon 04-25-2023 GFR >60 Normal [facility] ([place] Comment on above: Result Comment: GFR Population [...] meters Performed By: #### P BNP #### [address] [address] GFR Non- >60 Normal [facility] ([place] Comment on above: Result Comment: GFR Population [...] meters Performed By: #### P BNP #### [address] [address] .NEUABSon 04-25-2023 Neutrophil, Absolute 4.8 10 3/mcL Normal 2.3-8.1 [facility] ([place] Comment on above: Performed By: #### P BNP #### [address] [address] BMPon 04-25-2023 BUN/Creatinine Ratio 31.0 ratio High 10.0-22.0 [facility] ([place] Comment on above: Performed By: #### P BNP #### [address] [address] Calcium [Mass/Vol] 8.1 mg/dL Low 8.7-10.4 [facility] ([place] Comment on above: Performed By: #### P BNP #### [address] [address] Chloride [Moles/Vol] 105 mmol/L Normal 98-110 [facility] ([place] Comment on above: Performed By: #### P BNP #### [address] [address] CO2 [Moles/Vol] 28 mmol/L Normal 22-32 [facility] ([place] Comment on above: Performed By: #### P BNP #### [address] [address] Creatinine [Mass/Vol] 0.71 mg/dL Normal 0.60-1.40 [facility] ([place]) Comment on above: Performed By: #### P BNP #### [address] [address] Electrolyte Balance 7.0 mEq/L Normal 4.0-15.0 [facility] ([place] Comment on above: Performed By: #### P BNP #### [address] [address] Glucose [Mass/Vol] 169 mg/dL High 82-115 [facility] ([place] Comment on above: Performed By: #### P BNP #### [address] [address] Potassium [Moles/Vol] 3.7 mmol/L Normal 3.5-5.0 [facility] ([place]) Comment on above: Performed By: #### P BNP #### [address] [address] Sodium [Moles/Vol] 140 mmol/L Normal 136-145 [facility] ([place] Comment on above: Performed By: #### P BNP #### [place] [address] Urea nitrogen [Mass/Vol] 22.0 mg/dL Normal 8.0-22.0 [facility] ([place] Comment on above: Performed By: #### P BNP #### [place] [address] CBCon 04-25-2023 Erythrocyte distribution width (RBC) [Ratio] 14.3 % Normal 11.5-15.5 [facility] ([place] Comment on above: Performed By: #### P BNP #### [place] [address] Hematocrit (Bld) [Volume fraction] 31.5 % Low 40.0-52.0 [facility] ([place] Comment on above: Performed By: #### P BNP #### [place] [address] Hgb 10.8 G/dL Low 13.0-17.5 [facility] ([place] Comment on above: Performed By: #### P BNP #### [place] [address] MCH (RBC) [Entitic mass] 30.9 pg Normal 27.0-33.0 [facility] ([place] Comment on above: Performed By: #### P BNP #### [place] [address] MCHC 34.4 G/dL Normal 32.0-36.0 [facility] ([place] Comment on above: Performed By: #### P BNP #### [place] [address] MCV (RBC) [Entitic vol] 89.8 fL Normal 81.0-100.0 [facility] ([place] Comment on above: Performed By: #### P BNP #### [place] [address] Platelet 159 10 3/mcL Normal 150-450 [facility] ([place] Comment on above: Performed By: #### P BNP #### [facility] [address] [place] [address] Platelet mean volume (Bld) [Entitic vol] 9.8 fL Normal 6.4-10.5 [facility] ([place] Comment on above: Performed By: #### P BNP #### [address] [address] RBC 3.51 10 6/mcL Low 4.50-6.00 [facility] ([place] Comment on above: Performed By: #### P BNP #### [address] [address] WBC 6.4 10 3/mcL Normal 4.5-10.8 [facility] ([place] Comment on above: Performed By: #### P BNP #### [address] [address] [address] HEAD OR BRAIN W/O CONTRAS Ton [...] PM Ordering Provider: KIEL SAINZ [facility] ([place]) LABORATORYOrdered By: SYSTEM SYSTEM on 04-25-2023 Basophils [...] Basophil, Absolute 0.0 10 3/mcL Normal 0.0-0.3 [facility] ([place] Comment on above: Performed By: #### A DIFF, CBC, MG, ANEU, BMP, GFR #### [address] [address] Basophils/100 WBC (Bld) 0.3 % Normal 0.0-2.5 [facility] ([place] Comment on above: Performed By: #### A DIFF, CBC, MG, ANEU, BMP, GFR #### [address] [address] Eosinophil, Absolute 0.0 10 3/mcL Normal 0.0-0.7 [facility] ([place] Comment on above: Performed By: #### A DIFF, CBC, MG, ANEU, BMP, GFR #### [address] [address] Eosinophils/100 WBC (Bld) 0.5 % Normal 0.0-6.0 [facility] ([place] Comment on above: Performed By: #### A DIFF, CBC, MG, ANEU, BMP, GFR #### [address] [address] Lymphocyte, Absolute 0.8 10 3/mcL Low 0.9-4.3 [facility] ([place] Comment on above: Performed By: #### A DIFF, CBC, MG, ANEU, BMP, GFR #### [address] [address] Lymphocytes/100 WBC (Bld) 14.6 % Low 20.0-40.0 [facility] ([place] Comment on above: Performed By: #### A DIFF, CBC, MG, ANEU, BMP, GFR #### [address] [address] Monocyte, Absolute 0.7 10 3/mcL Normal 0.1-1.4 [facility] ([place] Comment on above: Performed By: #### A DIFF, CBC, MG, ANEU, BMP, GFR #### [address] [address] Monocytes/100 WBC (Bld) 14.4 % High 2.0-13.0 [facility] ([place] Comment on above: Performed By: #### A DIFF, CBC, MG, ANEU, BMP, GFR #### [address] [address] Neutrophils/100 WBC (Bld) 70.2 % Normal 50.0-75.0 [facility] ([place] Comment on above: Performed By: #### A DIFF, CBC, MG, ANEU, BMP, GFR #### [address] [address] .GFRon 04-24-2023 GFR >60 Normal [facility] ([place] Comment on above: Result Comment: GFR Population [...] meters Performed By: #### P BNP #### [address] [address] GFR Non- >60 Normal [facility] ([place] Comment on above: Result Comment: GFR Population [...] meters Performed By: #### P BNP #### [address] [address] .NEUABSon 04-24-2023 Neutrophil, Absolute 3.6 10 3/mcL Normal 2.3-8.1 [facility] ([place] Comment on above: Performed By: #### A DIFF, CBC, MG, ANEU, BMP, GFR #### [address] [address] BMPon 04-24-2023 BUN/Creatinine Ratio 35.5 ratio High 10.0-22.0 [facility] ([place] Comment on above: Performed By: #### A DIFF, CBC, MG, ANEU, BMP, GFR #### [address] [address] Calcium [Mass/Vol] 8.3 mg/dL Low 8.7-10.4 [facility] ([place] Comment on above: Performed By: #### A DIFF, CBC, MG, ANEU, BMP, GFR #### [place] [id number] Chloride [Moles/Vol] 108 mmol/L Normal 98-110 [facility] ([place] Comment on above: Performed By: #### A DIFF, CBC, MG, ANEU, BMP, GFR #### [place] [id number] CO2 [Moles/Vol] 30 mmol/L Normal 22-32 [facility] ([place] Comment on above: Performed By: #### A DIFF, CBC, MG, ANEU, BMP, GFR #### [place] [address] Creatinine [Mass/Vol] 0.93 mg/dL Normal 0.60-1.40 [facility] ([place] Comment on above: Performed By: #### A DIFF, CBC, MG, ANEU, BMP, GFR #### [place] [address] Electrolyte Balance 6.0 mEq/L Normal 4.0-15.0 [facility] ([place] Comment on above: Performed By: #### A DIFF, CBC, MG, ANEU, BMP, GFR #### [place] [address] Glucose [Mass/Vol] 180 mg/dL High 82-115 [facility] ([place] Comment on above: Performed By: #### A DIFF, CBC, MG, ANEU, BMP, GFR #### [address] [address] Potassium [Moles/Vol] 3.4 mmol/L Low 3.5-5.0 [facility] ([place] Comment on above: Performed By: #### A DIFF, CBC, MG, ANEU, BMP, GFR #### [place] [id number] Sodium [Moles/Vol] 144 mmol/L Normal 136-145 [facility] ([place] Comment on above: Performed By: #### A DIFF, CBC, MG, ANEU, BMP, GFR #### [place] [address] Urea nitrogen [Mass/Vol] 33.0 mg/dL High 8.0-22.0 [facility] ([place] Comment on above: Performed By: #### A DIFF, CBC, MG, ANEU, BMP, GFR #### [place] [id number] CBCon 04-24-2023 Erythrocyte distribution width (RBC) [Ratio] 14.6 % Normal 11.5-15.5 [facility] ([place] Comment on above: Performed By: #### A DIFF, CBC, MG, ANEU, BMP, GFR #### [place] [address] Hematocrit (Bld) [Volume fraction] 33.9 % Low 40.0-52.0 [facility] ([place] Comment on above: Performed By: #### A DIFF, CBC, MG, ANEU, BMP, GFR #### [place] [address] Hgb 11.4 G/dL Low 13.0-17.5 [facility] ([place] Comment on above: Performed By: #### A DIFF, CBC, MG, ANEU, BMP, GFR #### [place] [address] MCH (RBC) [Entitic mass] 30.2 pg Normal 27.0-33.0 [facility] ([place] Comment on above: Performed By: #### A DIFF, CBC, MG, ANEU, BMP, GFR #### [place] [address] MCHC 33.6 G/dL Normal 32.0-36.0 [facility] ([place] Comment on above: Performed By: #### A DIFF, CBC, MG, ANEU, BMP, GFR #### [place] [address] MCV (RBC) [Entitic vol] 89.7 fL Normal 81.0-100.0 [facility] ([place] Comment on above: Performed By: #### A DIFF, CBC, MG, ANEU, BMP, GFR #### [address] [address] Platelet 180 10 3/mcL Normal 150-450 [facility] ([place] Comment on above: Performed By: #### A DIFF, CBC, MG, ANEU, BMP, GFR #### [address] [address] Platelet mean volume (Bld) [Entitic vol] 9.6 fL Normal 6.4-10.5 [facility] ([place] Comment on above: Performed By: #### A DIFF, CBC, MG, ANEU, BMP, GFR #### [place] [id number] RBC 3.78 10 6/mcL Low 4.50-6.00 [facility] ([place] Comment on above: Performed By: #### A DIFF, CBC, MG, ANEU, BMP, GFR #### [place] [id number] WBC 5.1 10 3/mcL Normal 4.5-10.8 [facility] ([place] Comment on above: Performed By: #### A DIFF, CBC, MG, ANEU, BMP, GFR #### [address] [address] LABORATORYOrdered By: SYSTEM SYSTEM on 04-24-2023 Basophils [...] 04-24-2023 Magnesium [Mass/Vol] 1.8 mg/dL Normal 1.6-2.4 [facility] ([place] Comment on above: Performed By: #### A DIFF, CBC, MG, ANEU, BMP, GFR #### [address] [address] XR ABDOMEN APon 04-24-2023 XR ABDOMEN AP [...] 04/24/2023 11:17:01 AM Ordering Provider: ARIA Garsia [facility] ([place]) .Auto Diffon 04-23-2023 Basophil, Absolute 0.0 10 3/mcL Normal 0.0-0.3 [facility] ([place] Comment on above: Performed By: #### A DIFF, CBC, MG, ANEU, BMP, GFR #### [address] [address] Basophils/100 WBC (Bld) 0.2 % Normal 0.0-2.5 [facility] ([place] Comment on above: Performed By: #### A DIFF, CBC, MG, ANEU, BMP, GFR #### [address] [address] Eosinophil, Absolute 0.0 10 3/mcL Normal 0.0-0.7 [facility] ([place] Comment on above: Performed By: #### A DIFF, CBC, MG, ANEU, BMP, GFR #### [address] [address] Eosinophils/100 WBC (Bld) 0.0 % Normal 0.0-6.0 [facility] ([place] Comment on above: Performed By: #### A DIFF, CBC, MG, ANEU, BMP, GFR #### [address] [address] Lymphocyte, Absolute 0.6 10 3/mcL Low 0.9-4.3 [facility] ([place] Comment on above: Performed By: #### A DIFF, CBC, MG, ANEU, BMP, GFR #### [address] [address] Lymphocytes/100 WBC (Bld) 6.8 % Low 20.0-40.0 [facility] ([place] Comment on above: Performed By: #### A DIFF, CBC, MG, ANEU, BMP, GFR #### [address] [address] Monocyte, Absolute 1.1 10 3/mcL Normal 0.1-1.4 [facility] ([place] Comment on above: Performed By: #### A DIFF, CBC, MG, ANEU, BMP, GFR #### [address] [address] Monocytes/100 WBC (Bld) 12.4 % Normal 2.0-13.0 [facility] ([place] Comment on above: Performed By: #### A DIFF, CBC, MG, ANEU, BMP, GFR #### [address] [address] Neutrophils/100 WBC (Bld) 80.6 % High 50.0-75.0 [facility] ([place] Comment on above: Performed By: #### A DIFF, CBC, MG, ANEU, BMP, GFR #### [address] [address] .GFRon 04-23-2023 GFR >60 Normal [facility] ([place] Comment on above: Result Comment: GFR Population [...] DIFF, CBC, MG, ANEU, BMP, GFR #### [address] [address] GFR Non- >60 Normal [facility] ([place] Comment on above: Result Comment: GFR Population [...] DIFF, CBC, MG, ANEU, BMP, GFR #### [place] [address] .MDWon 04-23-2023 Monocyte Distribution Width 26.98 High 0.00-20.00 [facility] ([place] Comment on above: Result Comment: For adults in ED, MDW>20.0 may be associated with a higher risk of sepsis during the first 12hrs of hospital admission Performed By: #### A DIFF, CBC, MG, ANEU, BMP, GFR #### [place] [address] .NEUABSon 04-23-2023 Neutrophil, Absolute 7.4 10 3/mcL Normal 2.3-8.1 [facility] ([place] Comment on above: Performed By: #### A DIFF, CBC, MG, ANEU, BMP, GFR #### [place] [address] CBCon 04-23-2023 Erythrocyte distribution width (RBC) [Ratio] 14.9 % Normal 11.5-15.5 [facility] ([place] Comment on above: Performed By: #### A DIFF, CBC, MG, ANEU, BMP, GFR #### [place] [address] Hematocrit (Bld) [Volume fraction] 36.1 % Low 40.0-52.0 [facility] ([place] Comment on above: Performed By: #### A DIFF, CBC, MG, ANEU, BMP, GFR #### [place] [address] Hgb 12.4 G/dL Low 13.0-17.5 [facility] ([place] Comment on above: Performed By: #### A DIFF, CBC, MG, ANEU, BMP, GFR #### [place] [address] MCH (RBC) [Entitic mass] 30.9 pg Normal 27.0-33.0 [facility] ([place] Comment on above: Performed By: #### A DIFF, CBC, MG, ANEU, BMP, GFR #### [place] [address] MCHC 34.4 G/dL Normal 32.0-36.0 [facility] ([place] Comment on above: Performed By: #### A DIFF, CBC, MG, ANEU, BMP, GFR #### [place] [address] MCV (RBC) [Entitic vol] 90.0 fL Normal 81.0-100.0 [facility] ([place] Comment on above: Performed By: #### A DIFF, CBC, MG, ANEU, BMP, GFR #### [place] [address] Platelet 198 10 3/mcL Normal 150-450 [facility] ([place] Comment on above: Performed By: #### A DIFF, CBC, MG, ANEU, BMP, GFR #### [place] [address] Platelet mean volume (Bld) [Entitic vol] 10.1 fL Normal 6.4-10.5 [facility] ([place] Comment on above: Performed By: #### A DIFF, CBC, MG, ANEU, BMP, GFR #### [place] [address] RBC 4.01 10 6/mcL Low 4.50-6.00 [facility] ([place] Comment on above: Performed By: #### A DIFF, CBC, MG, ANEU, BMP, GFR #### [address] [address] WBC 9.2 10 3/mcL Normal 4.5-10.8 [facility] ([place] Comment on above: Performed By: #### A DIFF, CBC, MG, ANEU, BMP, GFR #### [address] [address] CMPon 04-23-2023 Albumin Level 2.8 G/dL Low 3.2-4.8 [facility] ([place] Comment on above: Performed By: #### A DIFF, CBC, MG, ANEU, BMP, GFR #### [place] [id number] Albumin/Globulin [Mass ratio] 0.7 {ratio} Low 0.9-1.6 [facility] ([place] Comment on above: Performed By: #### A DIFF, CBC, MG, ANEU, BMP, GFR #### [place] [id number] ALP [Catalytic activity/Vol] 91 U/L Normal 38-126 [facility] ([place] Comment on above: Performed By: #### A DIFF, CBC, MG, ANEU, BMP, GFR #### [place] [id number] ALT [Catalytic activity/Vol] 11 U/L Low 12-55 [facility] ([place] Comment on above: Performed By: #### A DIFF, CBC, MG, ANEU, BMP, GFR #### [place] [id number] AST [Catalytic activity/Vol] 20 U/L Normal 8-34 [facility] ([place] Comment on above: Performed By: #### A DIFF, CBC, MG, ANEU, BMP, GFR #### [place] [id number] Bili Total 0.90 mg/dL Normal 0.20-1.20 [facility] ([place] Comment on above: Result Comment: Use of this assay is not recommended for patients undergoing treatment with eltrombopag due to the potential for falsely elevated results. Performed By: #### A DIFF, CBC, MG, ANEU, BMP, GFR #### [address] [address] BUN/Creatinine Ratio 25.6 ratio High 10.0-22.0 [facility] ([place] Comment on above: Performed By: #### A DIFF, CBC, MG, ANEU, BMP, GFR #### [address] [address] Calcium [Mass/Vol] 9.1 mg/dL Normal 8.7-10.4 [facility] ([place] Comment on above: Performed By: #### A DIFF, CBC, MG, ANEU, BMP, GFR #### [place] [id number] Chloride [Moles/Vol] 104 mmol/L Normal 98-110 [facility] ([place] Comment on above: Performed By: #### A DIFF, CBC, MG, ANEU, BMP, GFR #### [place] [id number] CO2 [Moles/Vol] 28 mmol/L Normal 22-32 [facility] ([place] Comment on above: Performed By: #### A DIFF, CBC, MG, ANEU, BMP, GFR #### [place] [address] Creatinine [Mass/Vol] 1.17 mg/dL Normal 0.60-1.40 [facility] ([place] Comment on above: Performed By: #### A DIFF, CBC, MG, ANEU, BMP, GFR #### [place] [id number] Electrolyte Balance 4.0 mEq/L Normal 4.0-15.0 [facility] ([place] Comment on above: Performed By: #### A DIFF, CBC, MG, ANEU, BMP, GFR #### [place] [id number] Globulin 3.8 G/dL Normal 1.5-3.8 [facility] ([place] Comment on above: Performed By: #### A DIFF, CBC, MG, ANEU, BMP, GFR #### [place] [id number] Glucose [Mass/Vol] 292 mg/dL High 82-115 [facility] ([place] Comment on above: Performed By: #### A DIFF, CBC, MG, ANEU, BMP, GFR #### [address] [address] Potassium [Moles/Vol] 4.2 mmol/L Normal 3.5-5.0 [facility] ([place] Comment on above: Result Comment: Spec imen slightly hemolyzed. Performed By: #### A DIFF, CBC, MG, ANEU, BMP, GFR #### [address] [address] Sodium [Moles/Vol] 136 mmol/L Normal 136-145 [facility] ([place] Comment on above: Performed By: #### A DIFF, CBC, MG, ANEU, BMP, GFR #### [place] [id number] Total Protein 6.6 G/dL Normal 5.7-8.2 [facility] ([place] Comment on above: Result Comment: No te - New Reference Range in effect 19 Performed By: #### A DIFF, CBC, MG, ANEU, BMP, GFR #### [place] [id number] Urea nitrogen [Mass/Vol] 30.0 mg/dL High 8.0-22.0 [facility] ([place] Comment on above: Performed By: #### A DIFF, CBC, MG, ANEU, BMP, GFR #### [place] [address] CT ABD/PELVIS W/ IV CONTRAST ONLYon 04-23-2023 [...] 04/23/2023 9:05:46 AM Ordering Provider: PRAKASH Garsia [facility]) [place] 04-23-2023 FLU A PCR Negative Normal Negative [facility]) Comment on above: Result Comment: [place] [id number] Performed By: #### A DIFF, CBC, MG, ANEU, BMP, GFR #### [place] [address] FLU B PCR Negative Normal Negative [facility] ([place] Comment on above: Result Comment: [place] [id number] Performed By: #### A DIFF, CBC, MG, ANEU, BMP, GFR #### [facility] [address] [place] [address] RSV PCR Negative Normal Negative [facility] ([place]) Comment on above: Result Comment: [place] [id number] Performed By: #### A DIFF, CBC, MG, ANEU, BMP, GFR #### [address] [address] SARS-CoV-2 (COVID-19) RNA SARAH+probe Ql (Unsp spec) Negative Normal Negative [facility] ([place] Comment on above: Result Comment: [place] [id number] This test has been authorized by FDA [...] DIFF, CBC, MG, ANEU, BMP, GFR #### [address] [address] LABORATORYOrdered By: Ya Martinez on 04-23-2023 Natriuretic peptide.B prohormone N-Terminal [Mass/Vol] 1670 pg/mL High 0 - 900 pg/mL Auto Chem SS Comment on above: Interpretive Data: N T-proBNP results of less than 300 pg/mL effectively rules out acute congestive heart failure with 99% negative predictive value. LABORATORYOrdered By: [employer] SYSTEM on 04-23-2023 Troponin I.cardiac DL <= [...] Comment on above: Result Comment: [place] [id number] FLUBV RNA SARAH+probe Ql (Resp) Negative 11 (04/23/23 5:34 AM) Normal Negative AH Auto Viro/Sero SS Comment on above: [place]: [place] [id number] RSV PCR Negative 12 (04/23/23 5:34 AM) Normal Negative AH Auto Viro/Sero SS Comment on above: Result Comment: Note s [id number] SARS-CoV-2 (COVID-19) RNA SARAH+probe Ql (Resp) Negative 8, 9 (04/23/23 5:34 AM) Normal Negative AH Auto Viro/Sero SS Comment on above: Result Comment: [place] [id number] Interpretive Data: T his test has been [...] 04-23-2023 Lipase Level 20 U/L Normal 12-53 [facility] ([place]) Comment on above: Result Comment: No te - New Reference Range in effect 19 Performed By: #### A DIFF, CBC, MG, ANEU, BMP, GFR #### [address] [address] PBNPon 04-23-2023 Natriuretic peptide B (Bld) [Mass/Vol] 1670 pg/mL High 0-900 [facility] ([place] Comment on above: Result Comment: NT-p roBNP results of less than 300 pg/mL effectively rules out acute congestive heart failure with 99% negative predictive value. Performed By: #### A DIFF, CBC, MG, ANEU, BMP, GFR #### [address] [address] TROPHSon 04-23-2023 Troponin I High Sensitivity 10.00 ng/L Normal 0.00-54.00 [facility] ([place] Comment on above: Performed By: #### T ROPHS #### [address] [address] UAon 04-23-2023 Color (U) Yellow Normal [facility] ([place] Comment on above: Performed By: #### M G, GFR, BMP #### [address] [address] Glucose (U) [Mass/Vol] Negative Normal Negative [facility] ([place] Comment on above: Performed By: #### M G, GFR, BMP #### [address] [address] Ketones Ql (U) Negative Normal Neg-Trace [facility] ([place] Comment on above: Performed By: #### M G, GFR, BMP #### [place] [address] UA Appear Clear Normal Clear [facility] ([place] Comment on above: Performed By: #### Scott G, GFR, BMP #### [address] [address] UA Blood Negative Normal Neg-Trace [facility] ([place] Comment on above: Performed By: #### Scott G, GFR, BMP #### [place] [address] UA Leuk Est Negative Normal Negative [facility] ([place] Comment on above: Performed By: #### Scott G, GFR, BMP #### [place] [address] UA Nitrite Negative Normal Negative [facility] ([place] Comment on above: Performed By: #### Scott G, GFR, BMP #### [place] [address] UA pH 5.0 Normal 5.0 - 8.0 [facility] ([place] Comment on above: Performed By: #### Scott G, GFR, BMP #### [place] [address] UA Protein 30 mg/dL Normal Negative [facility] ([place] Comment on above: Performed By: #### Scott G, GFR, BMP #### [place] [address] UA Spec Grav 1.020 Normal 1.006-1.02 9 [facility] ([place] Comment on above: Performed By: #### Scott G, GFR, BMP #### [place] [address] UA Specimen Type Clean Catch Normal [facility] ([place] Comment on above: Performed By: #### Scott G, GFR, BMP #### [facility] [address] [place] [address] UA Urobilinogen 1.0 E.U./dL Normal 0.2-1.0 [facility] ([place] Comment on above: Performed By: #### M G, GFR, BMP #### [facility] [address] [place] [address] Urobilinogen (U) [Mass/Vol] Negative Normal Neg-Trace [facility] ([place] Comment on above: Performed By: #### M G, GFR, BMP #### [place] [id number] [place] [address] XR CHEST 1 VIEWon 04-23-2023 XR CHEST [...] AM Ordering Provider: LILY JEFFERSON [facility] ([place]) XR ENTERIC TUBE PLACEMENTon 04-23-2023 XR ENTERIC [...] PM Ordering Provider: ALYSON WARREN [facility] ([place] XR ENTERIC TUBE PLACEMENT ORIGINAL EXAMINATION: ONE [...] PM Ordering Provider: ALYSON WARREN [facility] ([place]) LABORATORYOrdered By: Sadia Granados on 04-22-2023 Blood Glucose Testing Reason Routine (04/22/23 8:59 PM) [employer] Work Phone: Glucose [Mass/Vol] 265 mg/dL High 82 - 115 mg/dL [employer] Work Phone: Blood Glucose Testing Reason Routine (04/22/23 4:57 PM) [employer] Work Phone: Glucose [Mass/Vol] 235 mg/dL High 82 - 115 mg/dL [facility] Work Phone: LABORATORYOrdered By: Jennifer helms on 04-22-2023 Blood Glucose Testing Reason Routine (04/22/23 12:04 PM) [employer] Work Phone: Glucose [Mass/Vol] 247 mg/dL High 82 - 115 mg/dL [facility] Work Phone: CVFLURVon 04-21-2023 FLU A PCR Negative Normal Negative [facility] ([place] Comment on above: Result Comment: [place] [id number] Performed By: #### P BNP #### [place] [address] FLU B PCR Negative Normal Negative [facility] ([place] Comment on above: Result Comment: Note s [id number] Performed By: #### P BNP #### [place] [id number] RSV PCR Negative Normal Negative [facility] ([place] Comment on above: Result Comment: Note [place] [id number] Performed By: #### P BNP #### [place] [address] SARS-CoV-2 (COVID-19) RNA SARAH+probe Ql (Unsp spec) Negative Normal Negative [facility] ([place] Comment on above: Result Comment: [place] [id number] This test has been authorized by FDA [...] results. Performed By: #### P BNP #### [facility] [address] [place] [address] LABORATORYOrdered By: Fide Parker on 04-21-2023 FLUAV RNA SARAH+probe Ql (Resp) Negative 10 (04/21/23 11:14 AM) Normal Negative [facility] Auto Viro/Sero SS Comment on above: [place]: [place] [id number] FLUBV RNA SARAH+probe Ql (Resp) Negative 11 (04/21/23 11:14 AM) Normal Negative [facility] Viro/Sero SS Comment on above: [place]: [place] [id number] RSV PCR Negative 12 (04/21/23 11:14 AM) Normal Negative [facility] Auto Viro/Sero SS Comment on above: Result Comment: Note s [id number] SARS-CoV-2 (COVID-19) RNA SARAH+probe Ql (Resp) Negative 8, 9 (04/21/23 11:14 AM) Normal Negative AH Auto Viro/Sero SS Comment on above: Result Comment: [place] [id number] Interpretive Data: T his test has been [...] Basophil, Absolute 0.0 10 3/mcL Normal 0.0-0.3 [facility] ([place]) Comment on above: Performed By: #### A DIFF, CBC, MG, ANEU, BMP, GFR #### [address] [address] Basophils/100 WBC (Bld) 0.5 % Normal 0.0-2.5 [facility] ([place] Comment on above: Performed By: #### A DIFF, CBC, MG, ANEU, BMP, GFR #### [address] [address] Eosinophil, Absolute 0.1 10 3/mcL Normal 0.0-0.7 [facility] ([place]) Comment on above: Performed By: #### A DIFF, CBC, MG, ANEU, BMP, GFR #### [address] [address] Eosinophils/100 WBC (Bld) 0.9 % Normal 0.0-6.0 [facility] ([place] Comment on above: Performed By: #### A DIFF, CBC, MG, ANEU, BMP, GFR #### [address] [address] Lymphocyte, Absolute 1.4 10 3/mcL Normal 0.9-4.3 [facility] ([place]) Comment on above: Performed By: #### A DIFF, CBC, MG, ANEU, BMP, GFR #### [address] [address] Lymphocytes/100 WBC (Bld) 22.0 % Normal 20.0-40.0 [facility] ([place] Comment on above: Performed By: #### A DIFF, CBC, MG, ANEU, BMP, GFR #### [address] [address] Monocyte, Absolute 0.7 10 3/mcL Normal 0.1-1.4 [facility] ([place] Comment on above: Performed By: #### A DIFF, CBC, MG, ANEU, BMP, GFR #### [address] [address] Monocytes/100 WBC (Bld) 10.1 % Normal 2.0-13.0 [facility] ([place] Comment on above: Performed By: #### A DIFF, CBC, MG, ANEU, BMP, GFR #### [address] [address] Neutrophils/100 WBC (Bld) 66.5 % Normal 50.0-75.0 [facility] ([place] Comment on above: Performed By: #### A DIFF, CBC, MG, ANEU, BMP, GFR #### [address] [address] .GFRon 04-20-2023 GFR Non- >60 Normal [facility] ([place] Comment on above: Result Comment: GFR Population [...] DIFF, CBC, MG, ANEU, BMP, GFR #### [address] [address] GFR >60 Normal [facility] ([place] Comment on above: Result Comment: GFR Population [...] DIFF, CBC, MG, ANEU, BMP, GFR #### [place] [address] .NEUABSon 04-20-2023 Neutrophil, Absolute 4.3 10 3/mcL Normal 2.3-8.1 [facility] ([place]) Comment on above: Performed By: #### A DIFF, CBC, MG, ANEU, BMP, GFR #### [place] [address] CBCon 04-20-2023 Erythrocyte distribution width (RBC) [Ratio] 14.5 % Normal 11.5-15.5 [facility] ([place] Comment on above: Performed By: #### A DIFF, CBC, MG, ANEU, BMP, GFR #### [place] [address] Hematocrit (Bld) [Volume fraction] 37.8 % Low 40.0-52.0 [facility] ([place] Comment on above: Performed By: #### A DIFF, CBC, MG, ANEU, BMP, GFR #### [place] [address] Hgb 12.7 G/dL Low 13.0-17.5 [facility] ([place] Comment on above: Performed By: #### A DIFF, CBC, MG, ANEU, BMP, GFR #### [place] [address] MCH (RBC) [Entitic mass] 30.5 pg Normal 27.0-33.0 [facility] ([place] Comment on above: Performed By: #### A DIFF, CBC, MG, ANEU, BMP, GFR #### [place] [address] MCHC 33.6 G/dL Normal 32.0-36.0 [facility] ([place] Comment on above: Performed By: #### A DIFF, CBC, MG, ANEU, BMP, GFR #### [place] [address] MCV (RBC) [Entitic vol] 90.7 fL Normal 81.0-100.0 [facility] ([place] Comment on above: Performed By: #### A DIFF, CBC, MG, ANEU, BMP, GFR #### [place] [address] Platelet 198 10 3/mcL Normal 150-450 [facility] ([place] Comment on above: Performed By: #### A DIFF, CBC, MG, ANEU, BMP, GFR #### [place] [address] Platelet mean volume (Bld) [Entitic vol] 10.5 fL Normal 6.4-10.5 [facility] ([place] Comment on above: Performed By: #### A DIFF, CBC, MG, ANEU, BMP, GFR #### [place] [address] RBC 4.17 10 6/mcL Low 4.50-6.00 [facility] ([place] Comment on above: Performed By: #### A DIFF, CBC, MG, ANEU, BMP, GFR #### [place] [address] WBC 6.5 10 3/mcL Normal 4.5-10.8 [facility] ([place] Comment on above: Performed By: #### A DIFF, CBC, MG, ANEU, BMP, GFR #### [place] [address] CMPon 04-20-2023 Albumin Level 3.0 G/dL Low 3.2-4.8 [facility] ([place] Comment on above: Performed By: #### A DIFF, CBC, MG, ANEU, BMP, GFR #### [place] [address] Albumin/Globulin [Mass ratio] 0.9 {ratio} Normal 0.9-1.6 [facility] ([place] Comment on above: Performed By: #### A DIFF, CBC, MG, ANEU, BMP, GFR #### [place] [address] ALP [Catalytic activity/Vol] 114 U/L Normal 38-126 [facility] ([place] Comment on above: Performed By: #### A DIFF, CBC, MG, ANEU, BMP, GFR #### [address] [address] ALT [Catalytic activity/Vol] 16 U/L Normal 12-55 [facility] ([place] Comment on above: Performed By: #### A DIFF, CBC, MG, ANEU, BMP, GFR #### [address] [address] AST [Catalytic activity/Vol] 16 U/L Normal 8-34 [facility] ([place] Comment on above: Performed By: #### A DIFF, CBC, MG, ANEU, BMP, GFR #### [address] [address] Bili Total 0.40 mg/dL Normal 0.20-1.20 [facility] ([place] Comment on above: Result Comment: Use of this assay is not recommended for patients undergoing treatment with eltrombopag due to the potential for falsely elevated results. Performed By: #### A DIFF, CBC, MG, ANEU, BMP, GFR #### [address] [address] BUN/Creatinine Ratio 24.2 ratio High 10.0-22.0 [facility] ([place]) Comment on above: Performed By: #### A DIFF, CBC, MG, ANEU, BMP, GFR #### [address] [address] Calcium [Mass/Vol] 9.4 mg/dL Normal 8.7-10.4 [facility] ([place]) Comment on above: Performed By: #### A DIFF, CBC, MG, ANEU, BMP, GFR #### [address] [address] Chloride [Moles/Vol] 104 mmol/L Normal 98-110 [facility] ([place] Comment on above: Performed By: #### A DIFF, CBC, MG, ANEU, BMP, GFR #### [address] [address] CO2 [Moles/Vol] 31 mmol/L Normal 22-32 [facility] ([place] Comment on above: Performed By: #### A DIFF, CBC, MG, ANEU, BMP, GFR #### [address] [address] Creatinine [Mass/Vol] 0.95 mg/dL Normal 0.60-1.40 [facility] ([place]) Comment on above: Performed By: #### A DIFF, CBC, MG, ANEU, BMP, GFR #### [address] [address] Electrolyte Balance 2.0 mEq/L Low 4.0-15.0 [facility] ([place]) Comment on above: Performed By: #### A DIFF, CBC, MG, ANEU, BMP, GFR #### [address] [address] Globulin 3.4 G/dL Normal 1.5-3.8 [facility] ([place] Comment on above: Performed By: #### A DIFF, CBC, MG, ANEU, BMP, GFR #### [place] [id number] Glucose [Mass/Vol] 195 mg/dL High 82-115 [facility] ([place] Comment on above: Performed By: #### A DIFF, CBC, MG, ANEU, BMP, GFR #### [address] [address] Potassium [Moles/Vol] 4.8 mmol/L Normal 3.5-5.0 [facility] ([place]) Comment on above: Performed By: #### A DIFF, CBC, MG, ANEU, BMP, GFR #### [address] [address] Sodium [Moles/Vol] 137 mmol/L Normal 136-145 [facility] ([place]) Comment on above: Performed By: #### A DIFF, CBC, MG, ANEU, BMP, GFR #### [address] [address] Total Protein 6.4 G/dL Normal 5.7-8.2 [facility] ([place] Comment on above: Result Comment: No te - New Reference Range in effect 19 Performed By: #### A DIFF, CBC, MG, ANEU, BMP, GFR #### [address] [address] Urea nitrogen [Mass/Vol] 23.0 mg/dL High 8.0-22.0 [facility] ([place] Comment on above: Performed By: #### A DIFF, CBC, MG, ANEU, BMP, GFR #### [place] [id number] [place] [address] LABORATORYOrdered By: SYSTEM SYSTEM on 04-20-2023 Albumin [...] (S/P/Bld) [Vol rate/Area] ml/min/1.73sqm Invalid Interpretation Code Crystalsol Chemistry S Comment on above: Interpretive Data: [...] Workflow SS .GFRon 04-17-2023 GFR >60 Normal [facility] ([place] Comment on above: Result Comment: GFR Population [...] By: #### Scott Lucero, GFR, BMP #### [place] [address] GFR Non- >60 Normal [facility] ([place] Comment on above: Result Comment: GFR Population [...] Performed By: ###Karol Lucero, GFR, BMP #### [address] [address] CMPon 04-17-2023 Albumin Level 3.0 G/dL Low 3.2-4.8 [facility] ([place] Comment on above: Performed By: ###Karol Lucero, GFR, BMP #### [address] [address] Albumin/Globulin [Mass ratio] 1.0 {ratio} Normal 0.9-1.6 [facility] ([place] Comment on above: Performed By: #### Scott Lucero, GFR, BMP #### [address] [address] ALP [Catalytic activity/Vol] 107 U/L Normal 38-126 [facility] ([place] Comment on above: Performed By: #### M Nic, GFR, BMP #### [address] [address] ALT [Catalytic activity/Vol] 18 U/L Normal 12-55 [facility] ([place] Comment on above: Performed By: #### Scott Lucero, GFR, BMP #### [address] [address] AST [Catalytic activity/Vol] 16 U/L Normal 8-34 [facility] ([place] Comment on above: Performed By: #### Scott Lucero, GFR, BMP #### [address] [address] Bili Total 0.60 mg/dL Normal 0.20-1.20 [facility] ([place] Comment on above: Result Comment: Use of this assay is not recommended for patients undergoing treatment with eltrombopag due to the potential for falsely elevated results. Performed By: #### Scott Lucero, GFR, BMP #### [place] [id number] BUN/Creatinine Ratio 25.6 ratio High 10.0-22.0 [facility] ([place]) Comment on above: Performed By: #### M Nic, GFR, BMP #### [address] [address] Calcium [Mass/Vol] 9.0 mg/dL Normal 8.7-10.4 [facility] ([place]) Comment on above: Performed By: #### M Nic, GFR, BMP #### [address] [address] Chloride [Moles/Vol] 104 mmol/L Normal 98-110 [facility] ([place] Comment on above: Performed By: #### M G, GFR, BMP #### [address] [address] CO2 [Moles/Vol] 30 mmol/L Normal 22-32 [facility] ([place] Comment on above: Performed By: #### M G, GFR, BMP #### [address] [address] Creatinine [Mass/Vol] 0.90 mg/dL Normal 0.60-1.40 [facility] ([place]) Comment on above: Performed By: #### M G, GFR, BMP #### [address] [address] Electrolyte Balance 6.0 mEq/L Normal 4.0-15.0 [facility] ([place]) Comment on above: Performed By: #### M G, GFR, BMP #### [address] [address] Globulin 3.1 G/dL Normal 1.5-3.8 [facility] ([place] Comment on above: Performed By: #### M G, GFR, BMP #### [address] [address] Glucose [Mass/Vol] 230 mg/dL High 82-115 [facility] ([place]) Comment on above: Performed By: #### M G, GFR, BMP #### [address] [address] Potassium [Moles/Vol] 4.7 mmol/L Normal 3.5-5.0 [facility] ([place]) Comment on above: Performed By: #### M G, GFR, BMP #### [address] [address] Sodium [Moles/Vol] 140 mmol/L Normal 136-145 [facility] ([place] Comment on above: Performed By: #### M G, GFR, BMP #### [address] [address] Total Protein 6.1 G/dL Normal 5.7-8.2 [facility] ([place] Comment on above: Result Comment: No te - New Reference Range in effect 19 Performed By: #### M G, GFR, BMP #### [address] [address] Urea nitrogen [Mass/Vol] 23.0 mg/dL High 8.0-22.0 [facility] ([place] Comment on above: Performed By: #### M G, GFR, BMP #### [address] [address] LABORATORYOrdered By: SYSTEM SYSTEM on 04-17-2023 Albumin [...] Guy on 04-15-2023 Glucose [Mass/Vol] 170 mg/dL [employer] Work Phone: Glucose [Mass/Vol] 185 mg/dL [facility] [employer] Work Phone: .Auto Diffon 04-13-2023 Basophil, Absolute 0.0 10 3/mcL Normal 0.0-0.3 [facility] ([place] Comment on above: Performed By: #### Scott G, GFR, BMP #### [address] [address] Basophils/100 WBC (Bld) 0.7 % Normal 0.0-2.5 [facility] ([place] Comment on above: Performed By: #### Scott G, GFR, BMP #### [address] [address] Eosinophil, Absolute 0.1 10 3/mcL Normal 0.0-0.7 [facility] ([place]) Comment on above: Performed By: #### Scott G, GFR, BMP #### [address] [address] Eosinophils/100 WBC (Bld) 0.8 % Normal 0.0-6.0 [facility] ([place] Comment on above: Performed By: #### Scott G, GFR, BMP #### [address] [address] Lymphocyte, Absolute 1.4 10 3/mcL Normal 0.9-4.3 [facility] ([place]) Comment on above: Performed By: #### Scott G, GFR, BMP #### [address] [address] Lymphocytes/100 WBC (Bld) 21.1 % Normal 20.0-40.0 [facility] ([place] Comment on above: Performed By: #### Scott G, GFR, BMP #### [address] [address] Monocyte, Absolute 0.6 10 3/mcL Normal 0.1-1.4 [facility] ([place] Comment on above: Performed By: #### M G, GFR, BMP #### [address] [address] Monocytes/100 WBC (Bld) 8.8 % Normal 2.0-13.0 [facility] ([place]) Comment on above: Performed By: #### M G, GFR, BMP #### [address] [address] Neutrophils/100 WBC (Bld) 68.6 % Normal 50.0-75.0 [facility] ([place] Comment on above: Performed By: #### M G, GFR, BMP #### [address] [address] .GFRon 04-13-2023 GFR >60 Normal [facility] ([place] Comment on above: Result Comment: GFR Population [...] By: #### M G, GFR, BMP #### [address] [address] GFR Non- >60 Normal [facility] ([place] Comment on above: Result Comment: GFR Population [...] By: #### M G, GFR, BMP #### [place] [address] .NEUABSon 04-13-2023 Neutrophil, Absolute 4.6 10 3/mcL Normal 2.3-8.1 [facility] ([place]) Comment on above: Performed By: #### M G, GFR, BMP #### [place] [address] CBCon 04-13-2023 Erythrocyte distribution width (RBC) [Ratio] 14.1 % Normal 11.5-15.5 [facility] ([place] Comment on above: Performed By: #### Scott Lucero, GFR, BMP #### [place] [address] Hematocrit (Bld) [Volume fraction] 35.4 % Low 40.0-52.0 [facility] ([place] Comment on above: Performed By: #### M Nic, GFR, BMP #### [place] [address] Hgb 11.8 G/dL Low 13.0-17.5 [facility] ([place] Comment on above: Performed By: #### M G, GFR, BMP #### [place] [address] MCH (RBC) [Entitic mass] 30.1 pg Normal 27.0-33.0 [facility] ([place] Comment on above: Performed By: #### M G, GFR, BMP #### [place] [address] MCHC 33.4 G/dL Normal 32.0-36.0 [facility] ([place] Comment on above: Performed By: #### M G, GFR, BMP #### [place] [address] MCV (RBC) [Entitic vol] 90.1 fL Normal 81.0-100.0 [facility] ([place] Comment on above: Performed By: #### Scott Lucero, GFR, BMP #### [address] [address] Platelet 184 10 3/mcL Normal 150-450 [facility] ([place] Comment on above: Performed By: #### Scott Lucero, GFR, BMP #### [address] [address] Platelet mean volume (Bld) [Entitic vol] 11.1 fL High 6.4-10.5 [facility] ([place] Comment on above: Performed By: #### Scott [place], GFR, BMP #### [address] [address] RBC 3.93 10 6/mcL Low 4.50-6.00 [facility] ([place] Comment on above: Performed By: #### Scott Lucero, GFR, BMP #### [address] [address] WBC 6.7 10 3/mcL Normal 4.5-10.8 [facility] ([place] Comment on above: Performed By: #### Scott Lucero, GFR, BMP #### [address] [address] CMPon 04-13-2023 Albumin Level 2.9 G/dL Low 3.2-4.8 [facility] ([place] Comment on above: Performed By: #### Scott Lucero, GFR, BMP #### [address] [address] Albumin/Globulin [Mass ratio] 0.9 {ratio} Normal 0.9-1.6 [facility] ([place] Comment on above: Performed By: #### Scott Lucero, GFR, BMP #### [address] [address] ALP [Catalytic activity/Vol] 105 U/L Normal 38-126 [facility] ([place] Comment on above: Performed By: #### Scott Lucero, GFR, BMP #### [address] [address] ALT [Catalytic activity/Vol] 28 U/L Normal 12-55 [facility] ([place] Comment on above: Performed By: #### Scott Lucero, GFR, BMP #### [address] [address] AST [Catalytic activity/Vol] 20 U/L Normal 8-34 [facility] ([place] Comment on above: Performed By: #### M G, GFR, BMP #### [address] [address] Bili Total 0.50 mg/dL Normal 0.20-1.20 [facility] ([place] Comment on above: Result Comment: Use of this assay is not recommended for patients undergoing treatment with eltrombopag due to the potential for falsely elevated results. Performed By: #### M G, GFR, BMP #### [place] [id number] BUN/Creatinine Ratio 26.4 ratio High 10.0-22.0 [facility] ([place] Comment on above: Performed By: #### Scott Lucero, GFR, BMP #### [address] [address] Calcium [Mass/Vol] 8.9 mg/dL Normal 8.7-10.4 [facility] ([place] Comment on above: Performed By: #### Scott Lucero, GFR, BMP #### [address] [address] Chloride [Moles/Vol] 107 mmol/L Normal 98-110 [facility] ([place] Comment on above: Performed By: #### M G, GFR, BMP #### [place] [id number] CO2 [Moles/Vol] 25 mmol/L Normal 22-32 [facility] ([place] Comment on above: Performed By: #### M G, GFR, BMP #### [address] [address] Creatinine [Mass/Vol] 0.91 mg/dL Normal 0.60-1.40 [facility] ([place] Comment on above: Performed By: #### Scott G, GFR, BMP #### [place] [id number] Electrolyte Balance 8.0 mEq/L Normal 4.0-15.0 [facility] ([place] Comment on above: Performed By: #### M G, GFR, BMP #### [address] [address] Globulin 3.1 G/dL Normal 1.5-3.8 [facility] ([place] Comment on above: Performed By: #### M G, GFR, BMP #### [address] [address] Glucose [Mass/Vol] 190 mg/dL High 82-115 [facility] ([place]) Comment on above: Performed By: #### M Nic, GFR, BMP #### [address] [address] Potassium [Moles/Vol] 4.9 mmol/L Normal 3.5-5.0 [facility] ([place]) Comment on above: Performed By: #### Scott G, GFR, BMP #### [address] [address] Sodium [Moles/Vol] 140 mmol/L Normal 136-145 [facility] ([place] Comment on above: Performed By: #### Scott Lucero, GFR, BMP #### [address] [address] Total Protein 6.0 G/dL Normal 5.7-8.2 [facility] ([place] Comment on above: Result Comment: No te - New Reference Range in effect 19 Performed By: #### M G, GFR, BMP #### [address] [address] Urea nitrogen [Mass/Vol] 24.0 mg/dL High 8.0-22.0 [facility] ([place] Comment on above: Performed By: #### Scott G, GFR, BMP #### [address] [address] LABORATORYOrdered By: SYSTEM SYSTEM on 04-13-2023 Albumin [...] B (Bld) [Mass/Vol] 621 pg/mL Normal 0-900 [facility] ([place] Comment on above: Result Comment: NT-p roBNP results of less than 300 pg/mL effectively rules out acute congestive heart failure with 99% negative predictive value. Performed By: #### P BNP #### [address] [address] .GFRon 04-11-2023 GFR >60 Normal [facility] ([place]) Comment on above: Result Comment: GFR Population [...] By: #### M G, GFR, BMP #### [address] [address] GFR Non- >60 Normal [facility] ([place] Comment on above: Result Comment: GFR Population [...] By: #### M G, GFR, BMP #### [address] [address] CMPon 04-11-2023 Albumin Level 2.8 G/dL Low 3.2-4.8 [facility] ([place] Comment on above: Order Comment: conta minated with EDTA. Recollect 04/10/2023 17:20:15 EST Performed By: #### Scott Lucero, GFR, BMP #### [address] [address] Albumin/Globulin [Mass ratio] 0.9 {ratio} Normal 0.9-1.6 [facility] ([place] Comment on above: Order Comment: conta minated with EDTA. Recollect 04/10/2023 17:20:15 EST Performed By: #### Scott Lucero, GFR, BMP #### [address] [address] ALP [Catalytic activity/Vol] 103 U/L Normal 38-126 [facility] ([place] Comment on above: Order Comment: conta minated with EDTA. Recollect 04/10/2023 17:20:15 EST Performed By: #### Scott Lucero, GFR, BMP #### [address] [address] ALT [Catalytic activity/Vol] 24 U/L Normal 12-55 [facility] ([place] Comment on above: Order Comment: conta minated with EDTA. Recollect 04/10/2023 17:20:15 EST Performed By: #### Scott Lucero, GFR, BMP #### [address] [address] AST [Catalytic activity/Vol] 21 U/L Normal 8-34 [facility] ([place] Comment on above: Order Comment: conta minated with EDTA. Recollect 04/10/2023 17:20:15 EST Performed By: #### Scott Lucero, GFR, BMP #### [address] [address] Bili Total 0.70 mg/dL Normal 0.20-1.20 [facility] ([place] Comment on above: Order Comment: conta minated with EDTA. Recollect 04/10/2023 17:20:15 EST Result Comment: Use of this assay is not recommended for patients undergoing treatment with eltrombopag due to the potential for falsely elevated results. Performed By: #### Scott Lucero, GFR, BMP #### [address] [address] BUN/Creatinine Ratio 28.0 ratio High 10.0-22.0 [facility] ([place] Comment on above: Order Comment: conta minated with EDTA. Recollect 04/10/2023 17:20:15 EST Performed By: #### Scott Lucero, GFR, BMP #### [address] [address] Calcium [Mass/Vol] 8.7 mg/dL Normal 8.7-10.4 [facility] ([place] Comment on above: Order Comment: conta minated with EDTA. Recollect 04/10/2023 17:20:15 EST Performed By: #### Scott Lucero, GFR, BMP #### [place] [address] Chloride [Moles/Vol] 108 mmol/L Normal 98-110 [facility] ([place] Comment on above: Order Comment: conta minated with EDTA. Recollect 04/10/2023 17:20:15 EST Performed By: #### Scott Lucero, GFR, BMP #### [address] [address] CO2 [Moles/Vol] 26 mmol/L Normal 22-32 [facility] ([place] Comment on above: Order Comment: conta minated with EDTA. Recollect 04/10/2023 17:20:15 EST Performed By: #### Scott Lucero, GFR, BMP #### [place] [id number] Creatinine [Mass/Vol] 0.93 mg/dL Normal 0.60-1.40 [facility] ([place]) Comment on above: Order Comment: conta minated with EDTA. Recollect 04/10/2023 17:20:15 EST Performed By: #### Scott Lucero, GFR, BMP #### [address] [address] Electrolyte Balance 5.0 mEq/L Normal 4.0-15.0 [facility] ([place] Comment on above: Order Comment: conta minated with EDTA. Recollect 04/10/2023 17:20:15 EST Performed By: #### Scott G, GFR, BMP #### [address] [address] Globulin 3.0 G/dL Normal 1.5-3.8 [facility] ([place] Comment on above: Order Comment: conta minated with EDTA. Recollect 04/10/2023 17:20:15 EST Performed By: #### Scott Lucero, GFR, BMP #### [address] [address] Glucose [Mass/Vol] 187 mg/dL High 82-115 [facility] ([place] Comment on above: Order Comment: conta minated with EDTA. Recollect 04/10/2023 17:20:15 EST Performed By: #### Scott Lucero, GFR, BMP #### [address] [address] Potassium [Moles/Vol] 4.5 mmol/L Normal 3.5-5.0 [facility] ([place]) Comment on above: Order Comment: conta minated with EDTA. Recollect 04/10/2023 17:20:15 EST Result Comment: Spec imen slightly hemolyzed. Performed By: #### Scott Lucero, GFR, BMP #### [address] [address] Sodium [Moles/Vol] 139 mmol/L Normal 136-145 [facility] ([place] Comment on above: Order Comment: conta minated with EDTA. Recollect 04/10/2023 17:20:15 EST Performed By: #### Scott G, GFR, BMP #### [address] [address] Total Protein 5.8 G/dL Normal 5.7-8.2 [facility] ([place] Comment on above: Order Comment: conta minated with EDTA. Recollect 04/10/2023 17:20:15 EST Result Comment: No te - New Reference Range in effect 19 Performed By: #### Scott G, GFR, BMP #### [address] [address] Urea nitrogen [Mass/Vol] 26.0 mg/dL High 8.0-22.0 [facility] ([place] Comment on above: Order Comment: conta minated with EDTA. Recollect 04/10/2023 17:20:15 EST Performed By: #### Scott Lucero GFR, BMP #### [address] [address] .Auto Diffon 04-10-2023 Basophil, Absolute 0.1 10 3/mcL Normal 0.0-0.3 [facility] ([place] Comment on above: Performed By: #### Scott Lucero, GFR, BMP #### [address] [address] Basophils/100 WBC (Bld) 0.8 % Normal 0.0-2.5 [facility] ([place] Comment on above: Performed By: #### Scott Lucero, GFR, BMP #### [address] [address] Eosinophil, Absolute 0.0 10 3/mcL Normal 0.0-0.7 [facility] ([place]) Comment on above: Performed By: #### Scott Lucero, GFR, BMP #### [address] [address] Eosinophils/100 WBC (Bld) 0.4 % Normal 0.0-6.0 [facility] ([place] Comment on above: Performed By: #### Scott Lucero, GFR, BMP #### [address] [address] Lymphocyte, Absolute 1.3 10 3/mcL Normal 0.9-4.3 [facility] ([place] Comment on above: Performed By: #### Scott Lucero, GFR, BMP #### [address] [address] Lymphocytes/100 WBC (Bld) 13.6 % Low 20.0-40.0 [facility] ([place] Comment on above: Performed By: #### Scott Lucero, GFR, BMP #### [address] [address] Monocyte, Absolute 0.9 10 3/mcL Normal 0.1-1.4 [facility] ([place] Comment on above: Performed By: #### Scott Lucero, GFR, BMP #### [address] [address] Monocytes/100 WBC (Bld) 10.0 % Normal 2.0-13.0 [facility] ([place] Comment on above: Performed By: #### M G, GFR, BMP #### [address] [address] Neutrophils/100 WBC (Bld) 75.2 % High 50.0-75.0 [facility] ([place] Comment on above: Performed By: #### M G, GFR, BMP #### [address] [address] .NEUABSon 04-10-2023 Neutrophil, Absolute 7.0 10 3/mcL Normal 2.3-8.1 [facility] ([place]) Comment on above: Performed By: #### M G, GFR, BMP #### [place] [address] CBCon 04-10-2023 Erythrocyte distribution width (RBC) [Ratio] 14.4 % Normal 11.5-15.5 [facility] ([place] Comment on above: Performed By: #### P BNP #### [place] [address] Hematocrit (Bld) [Volume fraction] 36.9 % Low 40.0-52.0 [facility] ([place] Comment on above: Performed By: #### P BNP #### [place] [address] Hgb 12.4 G/dL Low 13.0-17.5 [facility] ([place] Comment on above: Performed By: #### P BNP #### [address] [address] MCH (RBC) [Entitic mass] 30.3 pg Normal 27.0-33.0 [facility] ([place] Comment on above: Performed By: #### P BNP #### [place] [address] MCHC 33.7 G/dL Normal 32.0-36.0 [facility] ([place] Comment on above: Performed By: #### P BNP #### [place] [address] MCV (RBC) [Entitic vol] 89.8 fL Normal 81.0-100.0 [facility] ([place] Comment on above: Performed By: #### P BNP #### [place] [address] Platelet 202 10 3/mcL Normal 150-450 [facility] ([place] Comment on above: Performed By: #### P BNP #### [place] [address] Platelet mean volume (Bld) [Entitic vol] 11.3 fL High 6.4-10.5 [facility] ([place] Comment on above: Performed By: #### P BNP #### [place] [address] RBC 4.10 10 6/mcL Low 4.50-6.00 [facility] ([place] Comment on above: Performed By: #### P BNP #### [place] [address] WBC 9.2 10 3/mcL Normal 4.5-10.8 [facility] ([place] Comment on above: Performed By: #### P BNP #### [place] [address] LABORATORYOrdered By: SYSTEM SYSTEM on 04-10-2023 Basophils [...] Basophil, Absolute 0.0 10 3/mcL Normal 0.0-0.3 [facility] ([place]) Comment on above: Performed By: #### Scott Lucero GFR, BMP #### [facility] [address] [place] [address] Basophils/100 WBC (Bld) 0.4 % Normal 0.0-2.5 [facility] ([place]) Comment on above: Performed By: ###Karol Lucero GFR, BMP #### [address] [address] Eosinophil, Absolute 0.0 10 3/mcL Normal 0.0-0.7 [facility] ([place] Comment on above: Performed By: #### Scott Lucero, GFR, BMP #### [address] [address] Eosinophils/100 WBC (Bld) 0.4 % Normal 0.0-6.0 [facility] ([place] Comment on above: Performed By: #### Scott Lucero, GFR, BMP #### [address] [address] Lymphocyte, Absolute 1.0 10 3/mcL Normal 0.9-4.3 [facility] ([place] Comment on above: Performed By: #### Scott Lucero, GFR, BMP #### [address] [address] Lymphocytes/100 WBC (Bld) 10.8 % Low 20.0-40.0 [facility] ([place] Comment on above: Performed By: #### Scott Lucero, GFR, BMP #### [address] [address] Monocyte, Absolute 1.0 10 3/mcL Normal 0.1-1.4 [facility] ([place] Comment on above: Performed By: #### Scott Lucero, GFR, BMP #### [address] [address] Monocytes/100 WBC (Bld) 10.5 % Normal 2.0-13.0 [facility] ([place] Comment on above: Performed By: #### Scott Lucero, GFR, BMP #### [address] [address] Neutrophils/100 WBC (Bld) 77.9 % High 50.0-75.0 [facility] ([place] Comment on above: Performed By: #### Scott Lucero, GFR, BMP #### [address] [address] .GFRon 04-08-2023 GFR >60 Normal [facility] ([place] Comment on above: Result Comment: GFR [...] By: #### Scott Lucero, GFR, BMP #### [address] [address] GFR Non- >60 Normal [facility] ([place] Comment on above: Result Comment: GFR Population [...] By: #### Scott Lucero, GFR, BMP #### [address] [address] .NEUABSon 04-08-2023 Neutrophil, Absolute 7.3 10 3/mcL Normal 2.3-8.1 [facility] ([place] Comment on above: Performed By: #### Scott Lucero, GFR, BMP #### [address] [address] CBCon 04-08-2023 Erythrocyte distribution width (RBC) [Ratio] 14.1 % Normal 11.5-15.5 [facility] ([place] Comment on above: Performed By: #### Scott Lucero, GFR, BMP #### [address] [address] Hematocrit (Bld) [Volume fraction] 37.6 % Low 40.0-52.0 [facility] ([place] Comment on above: Performed By: #### M Nic, GFR, BMP #### [address] [address] Hgb 12.8 G/dL Low 13.0-17.5 [facility] ([place] Comment on above: Performed By: #### M Nic, GFR, BMP #### [address] [address] MCH (RBC) [Entitic mass] 30.4 pg Normal 27.0-33.0 [facility] ([place] Comment on above: Performed By: #### Scott Lucero, GFR, BMP #### [place] [address] MCHC 34.2 G/dL Normal 32.0-36.0 [facility] ([place] Comment on above: Performed By: #### Scott Lucero, GFR, BMP #### [place] [id number] MCV (RBC) [Entitic vol] 89.0 fL Normal 81.0-100.0 [facility] ([place] Comment on above: Performed By: #### Scott Lucero, GFR, BMP #### [place] [id number] Platelet 231 10 3/mcL Normal 150-450 [facility] ([place] Comment on above: Performed By: #### Scott Lucero, GFR, BMP #### [place] [address] Platelet mean volume (Bld) [Entitic vol] 11.4 fL High 6.4-10.5 [facility] ([place] Comment on above: Performed By: #### Scott Lucero, GFR, BMP #### [place] [id number] RBC 4.22 10 6/mcL Low 4.50-6.00 [facility] ([place] Comment on above: Performed By: #### Scott Lucero, GFR, BMP #### [address] [address] WBC 9.4 10 3/mcL Normal 4.5-10.8 [facility] ([place] Comment on above: Performed By: #### M Nic, GFR, BMP #### [address] [address] CMPon 04-08-2023 Albumin Level 3.0 G/dL Low 3.2-4.8 [facility] ([place] Comment on above: Performed By: #### Scott Lucero, GFR, BMP #### [place] [id number] Albumin/Globulin [Mass ratio] 1.0 {ratio} Normal 0.9-1.6 [facility] ([place] Comment on above: Performed By: #### Scott Lucero, GFR, BMP #### [place] [id number] ALP [Catalytic activity/Vol] 116 U/L Normal 38-126 [facility] ([place] Comment on above: Performed By: #### Scott Lucero, GFR, BMP #### [place] [address] ALT [Catalytic activity/Vol] 20 U/L Normal 12-55 [facility] ([place] Comment on above: Performed By: #### Scott Lucero, GFR, BMP #### [place] [id number] AST [Catalytic activity/Vol] 15 U/L Normal 8-34 [facility] ([place] Comment on above: Performed By: #### Scott Lucero, GFR, BMP #### [place] [id number] Bili Total 0.60 mg/dL Normal 0.20-1.20 [facility] ([place] Comment on above: Result Comment: Use of this assay is not recommended for patients undergoing treatment with eltrombopag due to the potential for falsely elevated results. Performed By: #### Scott Lucero, GFR, BMP #### [place] [id number] BUN/Creatinine Ratio 43.8 ratio High 10.0-22.0 [facility] ([place] Comment on above: Performed By: #### M G, GFR, BMP #### [address] [address] Calcium [Mass/Vol] 8.8 mg/dL Normal 8.7-10.4 [facility] ([place] Comment on above: Performed By: #### Scott Lucero, GFR, BMP #### [address] [address] Chloride [Moles/Vol] 104 mmol/L Normal 98-110 [facility] ([place] Comment on above: Performed By: #### Scott Lucero, GFR, BMP #### [address] [address] CO2 [Moles/Vol] 29 mmol/L Normal 22-32 [facility] ([place] Comment on above: Performed By: #### Scott Lucero, GFR, BMP #### [address] [address] Creatinine [Mass/Vol] 0.89 mg/dL Normal 0.60-1.40 [facility] ([place] Comment on above: Performed By: #### Scott Lucero, GFR, BMP #### [address] [address] Electrolyte Balance 6.0 mEq/L Normal 4.0-15.0 [facility] ([place] Comment on above: Performed By: #### Scott Lucero, GFR, BMP #### [address] [address] Globulin 3.0 G/dL Normal 1.5-3.8 [facility] ([place] Comment on above: Performed By: #### Scott G, GFR, BMP #### [address] [address] Glucose [Mass/Vol] 252 mg/dL High 82-115 [facility] ([place] Comment on above: Performed By: #### Scott Lucero, GFR, BMP #### [address] [address] Potassium [Moles/Vol] 4.5 mmol/L Normal 3.5-5.0 [facility] ([place] Comment on above: Performed By: #### Scott G, GFR, BMP #### [facility] [address] [place] [address] Sodium [Moles/Vol] 139 mmol/L Normal 136-145 [facility] ([place] Comment on above: Performed By: #### M Nic, GFR, BMP #### [facility] [address] [place] [address] Total Protein 6.0 G/dL Normal 5.7-8.2 [facility] ([place] Comment on above: Result Comment: No te - New Reference Range in effect 19 Performed By: #### M G, GFR, BMP #### [facility] [address] [place] [address] Urea nitrogen [Mass/Vol] 39.0 mg/dL High 8.0-22.0 [facility] ([place] Comment on above: Performed By: #### M Nic, GFR, BMP #### [address] [address] XR CHEST 1 VIEWon 04-08-2023 XR CHEST [...] 11:45:10 AM Ordering Provider: JESUS MANUEL Garsia [facility] ([place] Laboratory - Microbiology an d Antimicrobial susceptibilityon 03-16-2023 S. aureus and MRSA panel SARAH+probe (Nose) Negative Negative [facility] - Drug toxicology Ordered By: Walter Sellers on 02-28-2023 Amphetamines Ql (U) Negative <1000 ng/mL [facility] Benzodiazepines Ql (U) Negative < 200 ng/mL [facility] Cannabinoids Screen Ql (U) Negative < 50 ng/mL [facility] Cocaine Ql (U) Negative < 300 ng/mL [facility] Opiates Ql (U) Negative < 300 ng/mL [facility] No Panel InformationOrdered By: Walter Sellers on 02-28-2023 MDMA (Ecstasy) Screen Negative < 500 ng/mL [facility] Miscellaneous Test See comment [facility] Comment on above: [id number] 6+OXYCODONE-B UND (ng/mL) DRUG RESULT SCREEN CUTOFF____ Amphetamines,Urine Negative ng/mL 1000 Amphetamine test includes Amphetamine and Methamphetamine.Barbiturates Negative ng/mL 200Benzodiazepines Negative ng/mL 200Cannabinoid Negative ng/mL 20Cocaine (Metab) Negative ng/mL 300Opiates Negative ng/mL 300 Opiates test includes Codeine, Morphine, Hydromorphone, Hydrocodone. Oxycodone/Oxymorphone,Urine Positive ng/mL 300 Test includes Oxycodone and Oxymorphone. Oxycodone PositiveOxycodone Conf,MS,UR 1035 ng/mL 300 Oxymorphone Negative 300 TESTING PERFORMED AT [facility]. ORIGINAL REPORT ON FILE IN LAB CONTAINS ADDITIONAL TEST SITE INFORMATION. Urine Barbiturates Screen Negative < 200 ng/mL [facility] Urine Drug Screen Comment [facility] Comment on above: CONFIRMATORY TESTING FOR [...] TESTING MUST BE ORDERED SEPARATELY. USE TESTMNEMONIC: [facility] Urine Methadone Screen Negative < 300 ng/mL [facility] Urine phencyclidine (PCP) de tectionOrdered By: Walter Sellers on 02-28-2023 Phencyclidine Ql (U) Negative < 25 ng/mL [facility] CBC W Auto Differential pane l (Bld)on 11-30-2022 Basophils (Bld) [#/Vol] 0.04 10*3/uL <0.11 k/uL [facility] Basophils/100 WBC (Bld) 0.4 % [facility] Differential cell count method Nom (Bld) Auto [facility] Eosinophils (Bld) [#/Vol] <0.46 k/uL [facility] Eosinophils/100 WBC (Bld) 0.1 % [facility] Erythrocyte distribution width (RBC) [Ratio] 14.0 % 11.5 - 15.0 % [facility] Hematocrit (Bld) [Volume fraction] 42.3 % 39.0 - 51.0 % [facility] Hemoglobin (Bld) [Mass/Vol] 13.9 g/dL 13.0 - 17.0 g/dL [facility] Immature granulocytes (Bld) [#/Vol] 0.05 10*3/uL <0.10 k/uL [facility] Immature granulocytes/100 WBC (Bld) 0.5 % [facility] Lymphocytes (Bld) [#/Vol] 1.62 10*3/uL 1.00 - 4.00 k/uL [facility] Lymphocytes/100 WBC (Bld) 17.1 % [facility] MCH (RBC) [Entitic mass] 30.2 pg 26.0 - 34.0 pg [facility] MCHC (RBC) [Mass/Vol] 32.9 g/dL 30.5 - 36.0 g/dL [facility] MCV (RBC) [Entitic vol] 92.0 fL 80.0 - 100.0 fL [facility] Monocytes (Bld) [#/Vol] 0.78 10*3/uL <0.87 k/uL [facility] Monocytes/100 WBC (Bld) 8.2 % [facility] Neutrophils (Bld) [#/Vol] 6.96 10*3/uL 1.45 - 7.50 k/uL [facility] Neutrophils/100 WBC (Bld) 73.7 % [facility] Nucleated RBC (Bld) [#/Vol] <0.01 k/uL [facility] Nucleated RBC/100 WBC (Bld) [Ratio] 0.0 /100 WBC [facility] Platelet mean volume (Bld) [Entitic vol] 11.5 fL 9.0 - 12.7 fL [facility] Platelets (Bld) [#/Vol] 207 10*3/uL 150 - 400 k/uL [facility] RBC (Bld) [#/Vol] 4.60 10*6/uL 4.20 - 6.00 m/uL [facility] WBC (Bld) [#/Vol] 9.46 10*3/uL 3.70 - 11.00 k/uL [facility] No Panel Informationon 11-17 [facility] XR Chest PA and Lateralon IMPRESSION: Stable exam without acute findings. Global Program Manager: TOMMY Transcribe Date/Time: Oct 26 2022 3:48P Dictated by : MADAN ZACARIAS MD This examination was interpreted and the report reviewed and electronically signed by: MADAN ZACARIAS MD on Oct 26 2022 3:49PM [facility] DIVISION OF RADIOLOGY * * *Final Report* [...] IMPRESSION IMPRESSION: Stable exam without acute findings. Global Program Manager: PSCB Transcribe Date/Time: Oct 26 2022 3:48P Dictated by : MADAN ZACARIAS MD This examination was interpreted and the report reviewed and electronically signed by: MADAN ZACARIAS MD on Oct 26 2022 3:49PM EST [facility] XR Chest PA and LateralOrder ed By: [facility] Provider on 10-26-2022 [facility] CBC W Auto Differential pane l (Bld)on 10-25-2022 Basophils (Bld) [#/Vol] 0.06 10*3/uL <0.11 k/uL [facility] Basophils/100 WBC (Bld) 0.4 % [facility] Differential cell count method Nom (Bld) Auto [facility] Eosinophils (Bld) [#/Vol] 0.06 10*3/uL <0.46 k/uL [facility] Eosinophils/100 WBC (Bld) 0.4 % [facility] Erythrocyte distribution width (RBC) [Ratio] 13.2 % 11.5 - 15.0 % [facility] Hematocrit (Bld) [Volume fraction] 48.7 % 39.0 - 51.0 % [facility] Hemoglobin (Bld) [Mass/Vol] 16.1 g/dL 13.0 - 17.0 g/dL [facility] Immature granulocytes (Bld) [#/Vol] 0.06 10*3/uL <0.10 k/uL [facility] Immature granulocytes/100 WBC (Bld) 0.4 % [facility] Lymphocytes (Bld) [#/Vol] 1.44 10*3/uL 1.00 - 4.00 k/uL [facility] Lymphocytes/100 WBC (Bld) 10.3 % [facility] MCH (RBC) [Entitic mass] 30.4 pg 26.0 - 34.0 pg [facility] MCHC (RBC) [Mass/Vol] 33.1 g/dL 30.5 - 36.0 g/dL [facility] MCV (RBC) [Entitic vol] 91.9 fL 80.0 - 100.0 fL [facility] Monocytes (Bld) [#/Vol] 1.54 10*3/uL High <0.87 k/uL [facility] Monocytes/100 WBC (Bld) 11.0 % [facility] Neutrophils (Bld) [#/Vol] 10.84 10*3/uL High 1.45 - 7.50 k/uL [facility] Neutrophils/100 WBC (Bld) 77.5 % [facility] Nucleated RBC (Bld) [#/Vol] <0.01 k/uL [facility] Nucleated RBC/100 WBC (Bld) [Ratio] 0.0 /100 WBC [facility] Platelet mean volume (Bld) [Entitic vol] 11.6 fL 9.0 - 12.7 fL [facility] Platelets (Bld) [#/Vol] 270 10*3/uL 150 - 400 k/uL [facility] RBC (Bld) [#/Vol] 5.30 10*6/uL 4.20 - 6.00 m/uL [facility] WBC (Bld) [#/Vol] 14.00 10*3/uL High 3.70 - 11.00 k/uL [facility] XR Chest PA and Lateralon Radiology Study observation (narrative) [facility] Absolute lymphocyte countOrd ered By: Shanna Govea on 10-11-2022 Lymphocytes Auto (Unsp spec) [#/Vol] 2.03 10*3/uL 0.83-4.51 [facility] Basophil percentageOrdered B y: Shanna Govea on 10-11-2022 Basophils/100 WBC (Bld) 0.6 % 0-1 [facility] Chloride [Moles/Vol] 104 mmol/L 98-107 [facility] Eosinophils/100 WBC (Bld) 0.3 % 0-5 [facility] Glucose [Mass/Vol] 162 mg/dL 74-106 [facility] Comment on above: Fasting Glucose resu lt greater than or equal to 126 mg/dL suggests DIABETES MELLITUS per A.D.A. criteria. Neutrophils (Bld) [#/Vol] 8.9 10*3/uL 2.0-7.7 [facility] Neutrophils/100 WBC (Bld) 71.3 % 47-70 [facility] Potassium [Moles/Vol] 3.7 mmol/L 3.5-5.1 [facility] Sodium [Moles/Vol] 137 mmol/L 136-145 [facility] WBC (Bld) [#/Vol] 12.5 10*3/uL 4.4-11.0 [facility] Blood erythrocytes count (nu mber/volume)Ordered By: Shanna Govea on 10-11-2022 RBC (Bld) [#/Vol] 5.02 10*6/uL 4.6-6.2 [facility] Blood hemoglobin measurement (mass/volume)Ordered By: Shanna Govea on 10-11-2022 Hemoglobin (Bld) [Mass/Vol] 15.3 g/dL 13.0-16.5 [facility] Blood lymphocytes/100 leukoc ytesOrdered By: Shanna Govea on 10-11-2022 Lymphocytes/100 WBC (Bld) 16.2 % 19-41 [facility] Blood monocytes/100 leukocyt esOrdered By: Shanna Govea on 10-11-2022 Monocytes/100 WBC (Bld) 10.1 % 0-10 [facility] Blood platelet mean volumeOr dered By: Shanna Govea on 10-11-2022 Platelet mean volume (Bld) [Entitic vol] 10.9 fL 6.2-12.0 [facility] Determination of erythrocyte mean corpuscular volume (MCV)Ordered By: Shanna Govea on 10-11-2022 MCV (RBC) [Entitic vol] 91.6 fL 80-94 [facility] Glucose Glucometer (BldC) [M ass/Vol]Ordered By: Shanna Govea on 10-11-2022 Glucose [Mass/Vol] 157 mg/dL 74-106 [facility] Comment on above: MANAGEMENT OF PATIEN T CARE PER NURSING PROTOCOL Hematocrit Auto (Bld) [Volum e fraction]Ordered By: Shanna Govea on 10-11-2022 Hematocrit (Bld) [Volume fraction] 46.0 % 40-54 [facility] Laboratory - Chemistry and C hemistry - challengeOrdered By: Shanna Govea on 10-11-2022 CO2 [Moles/Vol] 27.0 mmol/L 21.0-32.0 [facility] Urea nitrogen/Creatinine [Mass ratio] 26.0 mg/mg 10-20 [facility] Laboratory - Hematology and Cell countsOrdered By: Shanna Govea on 10-11-2022 Erythrocyte distribution width (RBC) [Entitic vol] 42.8 fL 35.1-43.9 [facility] Erythrocyte distribution width (RBC) [Ratio] 12.7 % 11.6-14.6 [facility] Immature granulocytes/100 WBC (Bld) 1.500 % 0.0-0.9 [facility] Comment on above: IG% - Immature Granu locytes (promyelocytes, myelocytes and metamyelocytes) > 1% indicates that a LEFT SHIFT is Present. MCH (RBC) [Entitic mass] 30.5 pg 27.0-32.0 [facility] Nucleated RBC/100 WBC (Bld) [Ratio] 0 % 0-5 [facility] MCHC Auto (RBC) [Mass/Vol]Or dered By: Shanna Govea on 10-11-2022 MCHC (RBC) [Mass/Vol] 33.3 g/dL 32-36 [facility] No Panel InformationOrdered By: Shanna Govea on 10-11-2022 Estimated Creatinine Clearance Calc 65.12 ml/min [facility] Estimated GFR (MDRD) Amer 107 mL/min >60 [facility] Comment on above: GFR Calc Estimated GFR (MDRD) Non-Af Amer 89 mL/min >60 [facility] Comment on above: Non- GFR Calc Platelets bldOrdered By: Ree bautista Xuan on 10-11-2022 Platelets (Bld) [#/Vol] 216 10*3/uL 150-450 [facility] Serum or plasma calcium zay urement (mass/volume)Ordered By: Shanna Govea on 10-11-2022 Calcium [Mass/Vol] 9.3 mg/dL 8.5-10.1 [facility] Serum or plasma creatinine m easurement (mass/volume)Ordered By: Shanna Govea on 10-11-2022 Creatinine [Mass/Vol] 0.92 mg/dL 0.70-1.30 [facility] Comment on above: The validity of the calculated GFR & GFRAA in patients over 70 years has not been determined. Clinical correlation is essential. Serum or plasma urea nitroge n measurement (mass/volume)Ordered By: Shanna Govea on 10-11-2022 Urea nitrogen [Mass/Vol] 24 mg/dL 7-18 [facility] Thin prep Papanicolaou smear with manual screeningOrdered By: Shanna Govea on 10-11-2022 Thin prep Papanicolaou smear with manual screening 6 5-15 [facility] No Panel InformationOrdered By: Josefina Khan on 10-10-2022 Troponin I High Sensitivity 118 pg/mL 3.0-78.0 [facility] Comment on above: Please Note: New [place] t Units and Gender Specific Reference Ranges. For more information see Policy Stat Procedure [place] High Sensitivity Troponin (TNIH) and attachments. Absolute lymphocyte countOrd ered By: Malia Alcala on 10-09-2022 Lymphocytes Auto (Unsp spec) [#/Vol] 1.73 10*3/uL 0.83-4.51 [facility] Basophil percentageOrdered B y: Malia Alcala on 10-09-2022 Basophils/100 WBC (Bld) 0.6 % 0-1 [facility] Chloride [Moles/Vol] 105 mmol/L 98-107 [facility] Eosinophils/100 WBC (Bld) 1.2 % 0-5 [facility] Glucose [Mass/Vol] 106 mg/dL 74-106 [facility] Comment on above: Fasting Glucose resu lt from 100 to 125 mg/dL suggests IMPAIRED HOMEOSTASIS per A.D.A. criteria. Neutrophils (Bld) [#/Vol] 8.1 10*3/uL 2.0-7.7 [facility] Neutrophils/100 WBC (Bld) 72.5 % 47-70 [facility] Potassium [Moles/Vol] 4.1 mmol/L 3.5-5.1 [facility] Sodium [Moles/Vol] 137 mmol/L 136-145 [facility] WBC (Bld) [#/Vol] 11.1 10*3/uL 4.4-11.0 [facility] Blood erythrocytes count (nu mber/volume)Ordered By: Malia Alcala on 10-09-2022 RBC (Bld) [#/Vol] 4.89 10*6/uL 4.6-6.2 [facility] Blood hemoglobin measurement (mass/volume)Ordered By: Malia Alcala on 10-09-2022 Hemoglobin (Bld) [Mass/Vol] 14.7 g/dL 13.0-16.5 [facility] Blood lymphocytes/100 leukoc ytesOrdered By: Malia Alcala on 10-09-2022 Lymphocytes/100 WBC (Bld) 15.5 % 19-41 [facility] Blood monocytes/100 leukocyt esOrdered By: Malia Alcala on 10-09-2022 Monocytes/100 WBC (Bld) 9.4 % 0-10 [facility] Blood platelet mean volumeOr dered By: Malia Alcala on 10-09-2022 Platelet mean volume (Bld) [Entitic vol] 10.6 fL 6.2-12.0 [facility] Determination of erythrocyte mean corpuscular volume (MCV)Ordered By: Malia Alcala on 10-09-2022 MCV (RBC) [Entitic vol] 91.2 fL 80-94 [facility] Hematocrit Auto (Bld) [Volum e fraction]Ordered By: Malia Alcala on 10-09-2022 Hematocrit (Bld) [Volume fraction] 44.6 % 40-54 [facility] Influenza virus A and B and SARS-CoV-2 (COVID-19) Ag panel - Upper respiratory specimOrdered By: Malia Alcala on 10-09-2022 SARS-CoV-2 (COVID-19) RNA SARAH+probe Ql (Resp) [facility] Laboratory - Chemistry and C hemistry - challengeOrdered By: Malia Alcala on 10-09-2022 CO2 [Moles/Vol] 26.0 mmol/L 21.0-32.0 [facility] Natriuretic peptide B (Bld) [Mass/Vol] 73.1 pg/mL 0-100 [facility] Urea nitrogen/Creatinine [Mass ratio] 26.4 mg/mg 10-20 [facility] Laboratory - Hematology and Cell countsOrdered By: Malia Alcala on 10-09-2022 Erythrocyte distribution width (RBC) [Entitic vol] 42.2 fL 35.1-43.9 [facility] Erythrocyte distribution width (RBC) [Ratio] 12.7 % 11.6-14.6 [facility] Immature granulocytes/100 WBC (Bld) 0.800 % 0.0-0.9 [facility] Comment on above: IG% - Immature Granu locytes (promyelocytes, myelocytes and metamyelocytes) > 1% indicates that a LEFT SHIFT is Present. MCH (RBC) [Entitic mass] 30.1 pg 27.0-32.0 [facility] Nucleated RBC/100 WBC (Bld) [Ratio] 0 % 0-5 [facility] MCHC Auto (RBC) [Mass/Vol]Or dered By: Malia Alcala on 10-09-2022 MCHC (RBC) [Mass/Vol] 33.0 g/dL 32-36 [facility] No Panel InformationOrdered By: Malia Alcala on 10-09-2022 Troponin I High Sensitivity 122 pg/mL 3.0-78.0 [facility] Comment on above: Critical Result(s) C alled at: 19:59:33 10/09/2022 by: Shellie Hobson to Negrito Vela. Results read back by same. Please Note: New Test Units and Gender Specific Reference Ranges. For more information see Policy Stat Procedure [place] High Sensitivity Troponin (TNIH) and attachments. Estimated Creatinine Clearance Calc 68.86 ml/min [facility] Estimated GFR (MDRD) Amer 115 mL/min >60 [facility] Comment on above: GFR Calc Estimated GFR (MDRD) Non-Af Amer 95 mL/min >60 [facility] Comment on above: Non- GFR Calc Platelets bldOrdered By: Zenaida Alcala on 10-09-2022 Platelets (Bld) [#/Vol] 229 10*3/uL 150-450 [facility] Serum or plasma calcium zay urement (mass/volume)Ordered By: Malia Alcala on 10-09-2022 Calcium [Mass/Vol] 9.5 mg/dL 8.5-10.1 [facility] Serum or plasma creatinine m easurement (mass/volume)Ordered By: Malia Alcala on 10-09-2022 Creatinine [Mass/Vol] 0.87 mg/dL 0.70-1.30 [facility] Comment on above: The validity of the calculated GFR & GFRAA in patients over 70 years has not been determined. Clinical correlation is essential. Serum or plasma urea nitroge n measurement (mass/volume)Ordered By: Malia Alcala on 10-09-2022 Urea nitrogen [Mass/Vol] 23 mg/dL 08-30 [facility] Thin prep Papanicolaou smear with manual screeningOrdered By: Malia Alcala on 10-09-2022 Thin prep Papanicolaou smear with manual screening 6 06-27 [facility] ECHOon 09-30-[address] [facility] [address] LUNG SCREEN WO IVCONon [facility] XR Pelvis and Hip - left AP and Lateral frogon 07-04-2022 IMPRESSION: No acute osseous abnormality Global Program Manager: TOMMY Transcribe Date/Time: Jul 04 2022 3:14P Dictated by : LILIA MITCHELL MD This examination was interpreted and the report reviewed and electronically signed by: LILIA MITCHELL MD on Jul 04 2022 3:15PM [facility] DIVISION OF RADIOLOGY * * *Final Report* [...] noted. DIVISION OF RADIOLOGY Provider, Valeria Hdz [facility] - 07/04/2022 * * *Final Report* [...] noted. IMPRESSION IMPRESSION: No acute osseous abnormality Global Program Manager: PSCB Transcribe Date/Time: Jul 04 2022 3:14P Dictated by : LILIA MITCHELL MD This examination was interpreted and the report reviewed and electronically signed by: LILIA MITCHELL MD on Jul 04 2022 3:15PM EST [facility] Radiology Study observation (narrative) [facility] XR Pelvis and Hip - left AP and Lateral frogOrdered By: [facility]cf Provider on 07-04-2022 [facility] Laboratory - Drug toxicology Ordered By: Dr. Sellers on 03-09-2022 Amphetamines Ql (U) Negative <1000 ng/mL [facility] Benzodiazepines Ql (U) Negative < 200 ng/mL [facility] Cannabinoids Screen Ql (U) Negative < 50 ng/mL [facility] Cocaine Ql (U) Negative < 300 ng/mL [facility] Opiates Ql (U) Positive < 300 ng/mL [facility] No Panel InformationOrdered By: Dr. Sellers on 03-09-2022 MDMA (Ecstasy) Screen Negative < 500 ng/mL [facility]: [id number] 6+OXYCODONE-B UND (ng/mL) DRUG RESULT SCREEN CUTOFF____ [...] Conf,MS,UR 457 ng/mL 300 TESTING PERFORMED AT [facility]. ORIGINAL REPORT ON FILE IN LAB CONTAINS ADDITIONAL TEST SITE INFORMATION. Urine Barbiturates Screen Negative < 200 ng/mL [facility] Urine Drug Screen Comment [facility] Comment on above: CONFIRMATORY TESTING FOR [...] Urine Methadone Screen Negative < 300 ng/mL [facility] Urine phencyclidine (PCP) de tectionOrdered By: Dr. Sellers on 03-09-2022 Phencyclidine Ql (U) Negative < 25 ng/mL [facility] Laboratory - Drug toxicology on 06-23-2021 Amphetamines Ql (U) Negative <1000 ng/mL [facility] Work Phone: Benzodiazepines Ql (U) Negative < 200 ng/mL [facility] Work Phone: Cannabinoids Screen Ql (U) Negative < 50 ng/mL [facility] Work Phone: Cocaine Ql (U) Negative < 300 ng/mL [facility] Work Phone: Opiates Ql (U) Positive < 300 ng/mL [facility] Work Phone: No Panel Informationon 06-23 MDMA (Ecstasy) Screen Negative < 500 ng/mL [facility] Work Phone: Miscellaneous Test See comment [facility] Work Phone: Comment on above: [id number] 6+OXYCODONE-B UND (ng/mL) DRUG RESULT SCREEN CUTOFF____ [...] 300 Oxymorphone Negative 300 TESTING PERFORMED AT [facility]. ORIGINAL REPORT ON FILE IN LAB CONTAINS ADDITIONAL TEST SITE INFORMATION. Urine Barbiturates Screen Negative < 200 ng/mL [facility] Work Phone: Urine Drug Screen Comment [facility] Work Phone: Comment on above: CONFIRMATORY [...] Urine Methadone Screen Negative < 300 ng/mL [facility] Work Phone: Urine phencyclidine (PCP) de tectionon 06-23-2021 Phencyclidine Ql (U) Negative < 25 ng/mL [facility] Work Phone: XR Chest PA and Lateralon IMPRESSION: No acute radiographic abnormality. Global Program Manager: PSCB Transcribe Date/Time: Dec 28 2020 4:46P Dictated by : LILIA MITCHELL MD This examination was interpreted and the report reviewed and electronically signed by: LILIA MITCHELL MD on Dec 28 2020 4:48PM [facility] DIVISION OF RADIOLOGY * * *Final Report* [...] spine. DIVISION OF RADIOLOGY Provider, Sirena Andreina [facility] - 12/28/2020 * * *Final Report* [...] spine. IMPRESSION IMPRESSION: No acute radiographic abnormality. Global Program Manager[facility] Transcribe Date/Time: Dec 28 2020 4:46P Dictated by : LILIA MITCHELL MD This examination was interpreted and the report reviewed and electronically signed by: LILIA MITCHELL MD on Dec 28 2020 4:48PM EST [facility] Radiology Study observation (narrative) [facility] XR Chest PA and LateralOrder ed By: [facility] Provider on 12-28-2020 [facility] XR Wrist - left PA and Later al and Obliqueon 04-15-2020 IMPRESSION: No acute osseous abnormality identified. Positive ulnar variance. Global Program Manager: [facility] Transcribe Date/Time: Apr 15 2020 4:13P Dictated [...] abnormality. DIVISION OF RADIOLOGY Provider, Valeria Hdz [facility] - 04/15/2020 * * *Final Report* [...] acute osseous abnormality identified. Positive ulnar variance. Global Program Manager: PSCB Transcribe Date/Time: Apr 15 2020 4:13P Dictated by : KAREL ELLIOTT MD This examination was interpreted and the report reviewed and electronically signed by: KAREL ELLIOTT MD on Apr 15 2020 4:15PM EST [facility] Radiology Study observation (narrative) [facility] XR Wrist - left PA and Later al and ObliqueOrdered By: Ccf Provider on 04-15-2020 [facility] No Panel Information [facility] Vital Signs Date Time Vital Sign Value Performing Clinician Annika ramirez 09-09-2024 10:57-0400 Body height 154.9 cm Amauri Jo APRN.TODD Work Phone: [facility] 09-09-2024 10:57-0400 Body mass index (BMI) [Ratio] 47.24 kg/m2 Amauri Jo APRN.CNP Work Phone: [facility] 09-09-2024 10:57-0400 Body weight 113.4 kg Amauri Hernandezter FRAMEMAN.[employer] PR[employer] OPERATOR Work Phone: [facility] 09-09-2024 10:57-0400 Diastolic blood pressure 82 mm[Hg] Amauri Jasper FRAMEMAN.NOODLE PRESS OPERATOR Work Phone: [facility] 09-09-2024 10:57-0400 Heart rate 64 /min Amauri Jasper FRAMEMAN.[employer]LE PRESS OPERATOR Work Phone: [facility] 09-09-2024 10:57-0400 Respiratory rate 16 /min Amauri Jasper FRAMEMAN.NOODLE PRESS OPERATOR Work Phone: [facility] 09-09-2024 10:57-0400 SaO2% (BldA) [Mass fraction] 93 % Amauri Hernandezter FRAMEMAN.NOODLE PRESS OPERATOR Work Phone: [facility] 09-09-2024 10:57-0400 Systolic blood pressure 138 mm[Hg] Amauri Jasper FRAMEMAN.NOODLE PRESS OPERATOR Work Phone: [facility] 08-07-2024 09:42-0400 Diastolic blood pressure 73 mm[Hg] Angela Haagen FRAMEMAN.NOODLE PRESS OPERATOR Work Phone: [facility] 08-07-2024 09:42-0400 Heart rate 59 /min Angela Haagen FRAMEMAN.NOODLE PRESS OPERATOR Work Phone: [facility] 08-07-2024 09:42-0400 Respiratory rate 16 /min Angela Haagen FRAMEMAN.NOODLE PRESS OPERATOR Work Phone: [facility] 08-07-2024 09:42-0400 SaO2% (BldA) [Mass fraction] 95 % Angela Haagen FRAMEMAN.NOODLE PRESS OPERATOR Work Phone: [facility] 08-07-2024 09:42-0400 Systolic blood pressure 133 mm[Hg] Angela Haagen FRAMEMAN.NOODLE PRESS OPERATOR Work Phone: [facility] 02-08-2024 11:39-0500 Body mass index (BMI) [Ratio] 44.11 kg/m2 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: [facility] 02-08-2024 11:39-0500 Body temperature 98.01 [degF] 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: [facility] 02-08-2024 11:39-0500 Body weight 116.57 kg 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: [facility] 02-08-2024 11:39-0500 Diastolic blood pressure 76 mm[Hg] 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: [facility] 02-08-2024 11:39-0500 Heart rate 64 /min 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: [facility] 02-08-2024 11:39-0500 Respiratory rate 16 /min 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: [facility] 02-08-2024 11:39-0500 SaO2% (BldA) [Mass fraction] 96 % 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: [facility] 02-08-2024 11:39-0500 Systolic blood pressure 124 mm[Hg] 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: [facility] 07-05-2023 13:12-0400 Body mass index (BMI) [Ratio] 39.48 kg/m2 Angela Haagen FRAMEMAN.NOODLE PRESS OPERATOR Work Phone: [facility] 07-05-2023 13:12-0400 Body weight 104.33 kg Angela Haagen FRAMEMAN.NOODLE PRESS OPERATOR Work Phone: [facility] 07-05-2023 13:12-0400 Diastolic blood pressure 70 mm[Hg] Angela Haagen FRAMEMAN.NOODLE PRESS OPERATOR Work Phone: [facility] 07-05-2023 13:12-0400 Heart rate 81 /min Angela Haagen FRAMEMAN.NOODLE PRESS OPERATOR Work Phone: [facility] 07-05-2023 13:12-0400 Respiratory rate 16 /min Angela Haagen FRAMEMAN.NOODLE PRESS OPERATOR Work Phone: [facility] 07-05-2023 13:12-0400 Systolic blood pressure 116 mm[Hg] Angela Schmid APRN.NOODLE PRESS OPERATOR Work Phone: [facility] 07-03-2023 10:14-0400 Body height 162.6 cm Laurel Aradine DO Work Phone: [facility] 07-03-2023 10:14-0400 Body mass index (BMI) [Ratio] 39.58 kg/m2 Laurel Aradine DO Work Phone: [facility] 07-03-2023 10:140400 Body weight 104.6 kg Laurel Aradine DO Work Phone: [facility] 07-03-2023 10:14-0400 Diastolic blood pressure 68 mm[Hg] Laurel Aradine DO Work Phone: [facility] 07-03-2023 10:14-0400 Heart rate 81 /min Laurel Aradine DO Work Phone: [facility] 07-03-2023 10:140400 Respiratory rate 20 /min Laurel Aradine DO Work Phone: [facility] 07-03-2023 10:14-0400 Systolic blood pressure 145 mm[Hg] Laurel Aradine DO Work Phone: [facility] 06-24-2023 14:00-0400 Inhaled oxygen flow rate 0 L/min Dr. Alyson Arthur Work Phone: [facility] 06-24-2023 14:00-0400 SaO2% (BldA) [Mass fraction] 93 % Dr. Alyson Arthur Work Phone: [facility] 06-24-2023 12:35-0400 Body temperature 97.6 [degF] Dr. Alyson Arthur Work Phone: [facility] 06-24-2023 12:35-0400 Diastolic blood pressure 72 mm[Hg] Dr. Alyson Arthur Work Phone: 1(601)[phone] [place] [address] 06-24-2023 12:35-0400 Heart rate 96 /min Dr. Alyson Arthur Work Phone: 9(174)141-104276 [place] [address] 06-24-2023 12:35-0400 Respiratory rate 16 /min Dr. Alyson Arthur Work Phone: 0(405)861-990476 [place] [address] 06-24-2023 12:35-0400 Systolic blood pressure 146 mm[Hg] Dr. Alyson Arthur Work Phone: 8(589)367-748376 [place] [address] 06-23-2023 09:35-0400 Body height 162.[address] Alyson Arthur Work Phone: 2(323)422-027976 [place] [address] 06-23-2023 09:35-0400 Body weight 110.[address] Alyson Arthur Work Phone: 0(254)339-031276 [place] [address] 06-22-2023 18:30-0400 Body mass index (BMI) [Ratio] 47.5 kg/m2 Dr. Alyson Arthur Work Phone: 9(256)[phone] [place] [address] 06-22-2023 18:15-0400 Diastolic blood pressure 73 mm[Hg] Dr. Alyson Arthur Work Phone: 9(012)079-341676 [place] [address] 06-22-2023 18:15-0400 Systolic blood pressure 107 mm[Hg] Dr. Alyson Arthur Work Phone: 8(961)253-547976 [place] [address] 06-22-2023 17:59-0400 Body temperature 97.2 [degF] Dr. Alyson Arthur Work Phone: 9(601)903-279476 [place] [address] 06-22-2023 17:59-0400 Heart rate 88 /min Dr. Alyson Arthur Work Phone: 4(494)[phone] [place] [address] 06-22-2023 17:59-0400 Respiratory rate 16 /min Dr. Alyson Arthur Work Phone: 1(641)[phone] [place] [address] 06-22-2023 17:59-0400 SaO2% (BldA) [Mass fraction] 92 % Dr. Alyson Arthur Work Phone: 1(804)999-180876 [place] [address] 06-22-2023 14:08-0400 Body height 157.[address] Alyson Arthur Work Phone: [facility] 06-22-2023 14:08-0400 Body mass index (BMI) [Ratio] 44.9 kg/m2 Dr. Alyson Arthur Work Phone: [facility] 06-22-2023 14:08-0400 Body weight 111.[address] Alyson Arthur Work Phone: [facility] 06-06-2023 15:29-0400 Body height 154.9 cm Kiel Barnes MD Work Phone: [facility] 06-06-2023 15:29-0400 Body mass index (BMI) [Ratio] 46.29 kg/m2 Kiel Barnes MD Work Phone: [facility] 06-06-2023 15:29-0400 Body weight 111.13 kg Kiel Barnes MD Work Phone: [facility] 06-06-2023 15:29-0400 Diastolic blood pressure 64 mm[Hg] Kiel Barnes MD Work Phone: [facility] 06-06-2023 15:29-0400 Heart rate 83 /min Kiel Barnes MD Work Phone: [facility] 06-06-2023 15:29-0400 SaO2% (BldA) [Mass fraction] 92 % Kiel Barnes MD Work Phone: [facility] 06-06-2023 15:29-0400 Systolic blood pressure 120 mm[Hg] Kiel Barnes MD Work Phone: [facility] 05-29-2023 12:38-0400 Body temperature 98.8 [degF] Jim Jeffers APRN.NOODLE PRESS OPERATOR Work Phone: [facility] 05-29-2023 12:38-0400 Diastolic blood pressure 68 mm[Hg] Jim Jeffers APRN.NOODLE PRESS OPERATOR Work Phone: [facility] 05-29-2023 12:38-0400 Heart rate 70 /min Jim Jeffers FRAMEMAN.NOODLE PRESS OPERATOR Work Phone: [facility] 05-29-2023 12:38-0400 Respiratory rate 18 /min [facility] FRAMEMAN.NOODLE PRESS OPERATOR Work Phone: [facility] 05-29-2023 12:38-0400 SaO2% (BldA) [Mass fraction] 93 % [facility] FRAMEMAN.NOODLE PRESS OPERATOR Work Phone: [facility] 05-29-2023 12:38-0400 Systolic blood pressure 126 mm[Hg] [facility] FRAMEMAN.NOODLE PRESS OPERATOR Work Phone: [facility] 05-22-2023 09:36-0400 Diastolic blood pressure 74 mm[Hg] Alyson Arthur MD Work Phone: [facility] 05-22-2023 09:36-0400 Heart rate 106 /min Alyson Arthur MD Work Phone: [facility] 05-22-2023 09:36-0400 Systolic blood pressure 151 mm[Hg] Alysno Arthur MD Work Phone: [facility] 05-20-2023 08:16-0400 Heart rate 88 /min MALIA BECERRIL DO [facility] 05-20-2023 08:07-0400 Blood Pressure Cuff Size MALIA HUBERATZLE DO [facility] 05-20-2023 08:07-0400 Blood Pressure Location MALIA SCHEATZLE DO [facility] 05-20-2023 08:07-0400 Blood Pressure Method MALIA HUBERATZLE DO [facility] 05-20-2023 08:07-0400 Body temperature 97.52 [degF] MALIA NGOATZLE DO [facility] 05-20-2023 08:07-0400 Diastolic Blood Pressure Non-Invasive 64 mm[Hg] MALIA BECERRIL DO [facility] 05-20-2023 08:07-0400 Heart rate 88 /min MALIA NGOATZLE DO [facility] 05-20-2023 08:07-0400 Reason For Taking VItal Signs MALIA NGOATZLE DO [facility] 05-20-2023 08:07-0400 Respiratory rate 18 /min MALIA NGOATZLE DO [facility] 05-20-2023 08:07-0400 Systolic Blood Pressure Non-Invasive 118 mm[Hg] MALIA NGOATZLE DO [facility] 05-20-2023 06:38-0400 Body weight 117 kg MALIA NGOATZLE DO [facility] 05-20-2023 00:29-0400 Blood Pressure Cuff Size MALIA NGOATZLE DO [facility] 05-20-2023 00:29-0400 Blood Pressure Location MALIA NGOATZLE DO [facility] 05-20-2023 00:29-0400 Blood Pressure Method MALIA NGOATZLE DO [facility] 05-20-2023 00:29-0400 Body temperature 97.52 [degF] MALIA NGOATZLE DO [facility] 05-20-2023 00:29-0400 Diastolic Blood Pressure Non-Invasive 68 mm[Hg] MALIA NGOATZLE DO [facility] 05-20-2023 00:29-0400 Heart rate 90 /min MALIA NGOATZLE DO [facility] 05-20-2023 00:29-0400 Reason For Taking VItal Signs MALIA NGOATZLE DO [facility] 05-20-2023 00:29-0400 Respiratory rate 18 /min MALIA NGOATZLE DO [facility] 05-20-2023 00:29-0400 Systolic Blood Pressure Non-Invasive 118 mm[Hg] MALIA SCHEATZLE DO [facility] 05-19-2023 21:24-0400 Body temperature 96.98 [degF] MALIA SCHEATZLE DO [facility] 05-19-2023 21:24-0400 Diastolic Blood Pressure Non-Invasive 86 mm[Hg] MALIA SCHEATZLE DO [facility] 05-19-2023 21:24-0400 Heart rate 89 /min MALIA NGOATZLE DO [facility] 05-19-2023 21:24-0400 Respiratory rate 19 /min MALIA NGOATZLE DO [facility] 05-19-2023 21:24-0400 Systolic Blood Pressure Non-Invasive 124 mm[Hg] MALIA NGOATZLE DO [facility] 05-19-2023 16:36-0400 Heart rate 80 /min MALIA NGOATZLE DO [facility] 05-19-2023 16:26-0400 Blood Pressure Cuff Size MALIA SCHEATZLE DO [email or web address] 05-19-2023 16:26-0400 Blood Pressure Location MALIA SCHEATZLE DO [email or web address] 05-19-2023 16:26-0400 Blood Pressure Method MALIA SCHEATZLE DO [facility] 05-19-2023 16:26-0400 Reason For Taking VItal Signs MALIA SCHEATZLE DO [facility] 05-19-2023 07:57-0400 Heart rate 74 /min MALIA NGOATZLE DO [facility] 05-19-2023 07:42-0400 Body temperature 97.88 [degF] MALIA NGOATZLE DO [facility] 05-18-2023 16:43-0400 Body temperature 98.06 [degF] MALIA NGOATZLE DO [facility] 05-18-2023 07:54-0400 Body temperature 97.7 [degF] MALIA NGOATZLE DO [facility] 05-17-2023 05:00-0400 Body weight 118 kg MALIA NGOATZLE DO [facility] 05-16-2023 05:00-0400 Body weight 118.4 kg MALIA NGOATZLE DO [facility] 04-29-2023 19:46-0400 Body height 155 cm MALIA NGOATZLE DO [facility] 04-29-2023 19:46-0400 Body weight 49.7 kg/m2 MALIA NGOATZLE DO [facility] 04-27-2023 16:34-0400 Heart rate 100 /min ALYSON PLUNK DO [facility] 04-27-2023 15:30-0400 Body temperature 99.32 [degF] ALYSON PLUNK DO [facility] 04-27-2023 15:30-0400 Diastolic Blood Pressure Non-Invasive 62 mm[Hg] ALYSON PLUNK DO [facility] 04-27-2023 15:30-0400 Heart rate 96 /min ALYSON PLUNK DO [facility] 04-27-2023 15:30-0400 Mean blood pressure 79 mm[Hg] ALYSON PLUNK DO [facility] 04-27-2023 15:30-0400 Respiratory rate 16 /min ALYSON PLUNK DO [facility] 04-27-2023 15:30-0400 Systolic Blood Pressure Non-Invasive 131 mm[Hg] ALSYON PLUNK DO [address] [place] [id number] 04-27-2023 11:12-0400 Heart rate 98 /min ALYSON PLUNK DO [address] [place] [id number] 04-27-2023 11:12-0400 Respiratory rate 16 /min ALYSON PLUNK DO [address] [place] [id number] 04-27-2023 11:02-0400 Body temperature 98.06 [degF] ALYSON PLUNK DO [address] [place] [id number] 04-27-2023 11:02-0400 Diastolic Blood Pressure Non-Invasive 86 mm[Hg] ALYSON PLUNK DO [address] [place] [id number] 04-27-2023 11:02-0400 Heart rate 100 /min ALYSON PLUNK DO [address] [place] [address] 04-27-2023 11:02-0400 Respiratory rate 16 /min ALYSON PLUNK DO [address] [place] [address] 04-27-2023 11:02-0400 Systolic Blood Pressure Non-Invasive 138 mm[Hg] ALYSON PLUNK DO [address] [place] [id number] 04-27-2023 09:01-0400 Heart rate 104 /min ALYSON PLUNK DO [address] [place] [address] 04-27-2023 07:34-0400 Body temperature 97.7 [degF] ALYSON PLUNK DO [address] [place] [address] 04-27-2023 07:34-0400 Diastolic Blood Pressure Non-Invasive 63 mm[Hg] ALYSON PLUNK DO [address] [place] [id number] 04-27-2023 07:34-0400 Systolic Blood Pressure Non-Invasive 131 mm[Hg] ALYSON PLUNK DO [facility] 04-27-2023 02:44-0400 Blood Pressure Location ALYSON PLUNK DO [facility] 04-27-2023 02:44-0400 Blood Pressure Method ALYSON PLUNK DO [facility] 04-27-2023 02:44-0400 Body temperature 98.06 [degF] ALYSON PLUNK DO [facility] 04-27-2023 02:44-0400 Reason For Taking VItal Signs ALYSON PLUNK DO [facility] 04-26-2023 22:48-0400 Reason For Taking VItal Signs ALYSON PLUNK DO [facility] 04-26-2023 19:20-0400 Reason For Taking VItal Signs ALYSON PLUNK DO [facility] 04-26-2023 16:38-0400 Heart rate 100 /min ALYSON PLUNK DO [facility] 04-26-2023 07:20-0400 Blood Pressure Location ALYSON PLUNK DO [facility] 04-26-2023 07:20-0400 Blood Pressure Method ALYSON PLUNK DO [facility] 04-26-2023 02:06-0400 Blood Pressure Location ALYSON PLUNK DO [facility] 04-26-2023 02:06-0400 Blood Pressure Method ALYSON PLUNK DO [facility] 04-25-2023 18:10-0400 Mean blood pressure 87 mm[Hg] ALYSON PLUNK DO [facility] 04-24-2023 22:44-0400 Heart rate 90 /min ALYSON PLUNK DO [facility] 04-24-2023 18:05-0400 Blood Pressure Cuff Size ALYSON PLUNK DO [facility] 04-24-2023 18:05-0400 Heart rate 87 /min ALYSON PLUNK DO [facility] 04-24-2023 14:27-0400 Blood Pressure Cuff Size ALYSON PLUNK DO [facility] 04-24-2023 11:12-0400 Blood Pressure Cuff Size ALYSON PLUNK DO [facility] 04-23-2023 18:23-0400 Body temperature 99.5 [degF] ALYSON PLUNK DO [facility] 04-23-2023 14:04-0400 Heart rate 95 /min ALYSON PLUNK DO [facility] 04-23-2023 12:45-0400 Body height 155 cm ALYSON PLUNK DO [facility] 04-23-2023 12:45-0400 Body weight 123.3 kg ALYSON PLUNK DO [facility] 04-23-2023 12:45-0400 Body weight 51.32 kg/m2 ALYSON PLUNK DO [facility] 04-23-2023 05:56-0400 Body weight 123.3 kg ALYSON PLUNK DO [facility] 04-23-2023 00:00-0500 Body temperature 96.8 [degF] MALIA NGOATZLE DO [facility] 04-23-2023 00:00-0500 Diastolic Blood Pressure Non-Invasive 66 mm[Hg] MALIA NGOATZLE DO [facility] 04-23-2023 00:00-0500 Heart rate 108 /min MALIA NGOATZLE DO [facility] 04-23-2023 00:00-0500 Respiratory rate 20 /min MALIA NGOATZLE DO [facility] 04-22-2023 22:12-0500 Heart rate 91 /min MALIA NGOATZLE DO [email or web address] 04-22-2023 22:12-0500 Respiratory rate 18 /min MALIA NGOATZLE DO [facility] 04-22-2023 17:06-0500 Blood Pressure Cuff Size MALIA NGOATZLE DO [facility] 04-22-2023 17:06-0500 Blood Pressure Location MALIA NGOATZLE DO [email or web address] 04-22-2023 17:06-0500 Blood Pressure Method MALIA NGOATZLE DO [email or web address] 04-22-2023 17:06-0500 Body temperature 97.7 [degF] MALIA NGOATZLE DO [email or web address] 04-22-2023 17:06-0500 Diastolic Blood Pressure Non-Invasive 52 mm[Hg] MALIA NGOATZLE DO [facility] 04-22-2023 17:06-0500 Heart rate 103 /min MALIA NGOATZLE DO [email or web address] 04-22-2023 17:06-0500 Reason For Taking VItal Signs MALIA NGOATZLE DO [facility] 04-22-2023 17:06-0500 Respiratory rate 18 /min MALIA NGOATZLE DO [email or web address] 04-22-2023 17:06-0500 Systolic Blood Pressure Non-Invasive 120 mm[Hg] MALIA NGOATZLE DO [facility] 04-22-2023 14:50-0500 Heart rate 91 /min MALIA HUBERATZLE DO [facility] 04-22-2023 08:30-0500 Heart rate 80 /min MALIA SCHEATZLE DO [facility] 04-22-2023 07:59-0500 Blood Pressure Cuff Size MALIA BECERRIL DO [facility] 04-22-2023 07:59-0500 Blood Pressure Location MALIA NGOATZJENN DO [facility] 04-22-2023 07:59-0500 Blood Pressure Method MALIA NGOATZLE DO [facility] 04-22-2023 07:59-0500 Body temperature 99.5 [degF] MALIA NGOATZLE DO [facility] 04-22-2023 07:59-0500 Diastolic [...] temperature 97.16 [degF] MALIA NGOATZLE DO [facility] 04-22-2023 00:55-0500 Reason For Taking VItal Signs MALIA NGOATZLE DO [facility] 04-21-2023 22:56-0500 Body temperature 98.24 [degF] MALIA SCHEATZLE DO [facility] 04-21-2023 17:18-0500 Body temperature 100.76 [degF] MALIA SCHEATZLE DO [facility] 04-18-2023 07:51-0500 Body weight 126.6 kg MALIA SCHEATZLE DO [facility] 04-18-2023 01:07-0500 Heart rate 76 /min MALIA NGOATZLE DO [facility] 04-17-2023 14:40-0500 Body weight 126.6 kg MALIA NGOATZLE DO [facility] 04-16-2023 22:03-0500 Body weight 125.6 kg MALIA NGOATZLE DO [facility] 04-13-2023 13:00-0500 Body height 155 cm MALIA NGOATZLE DO [facility] 04-13-2023 13:00-0500 Body weight 52.7 kg/m2 MALIA NGOATZLE DO [facility] 03-16-2023 11:27-0500 Body height 154.9 cm Kiel Barnes MD Work Phone: [facility] 03-16-2023 11:27-0500 Body weight 128.37 kg Kiel Barnes MD Work Phone: [facility] 03-16-2023 11:27-0500 Diastolic blood pressure 76 mm[Hg] Kiel Barnes MD Work Phone: [facility] 03-16-2023 11:27-0500 Heart rate 79 /min Kiel Barnes MD Work Phone: [facility] 03-16-2023 11:27-0500 SaO2% (BldA) [Mass fraction] 94 % Kiel Barnes MD Work Phone: [facility] 03-16-2023 11:27-0500 Systolic blood pressure 110 mm[Hg] Kiel Barnes MD Work Phone: [facility] 12-19-2022 13:53-0500 Body height 154.9 cm Benjamin Pike MD Work Phone: [facility] 12-19-2022 13:53-0500 Body weight 128.46 kg Benjamin Pike MD Work Phone: [facility] 12-19-2022 13:53-0500 Diastolic blood pressure 80 mm[Hg] Benjamin Pike MD Work Phone: [facility] 12-19-2022 13:53-0500 Heart rate 78 /min Benjamin Pike MD Work Phone: [facility] 12-19-2022 13:53-0500 Respiratory rate 16 /min Benjamin Pike MD Work Phone: [facility] 12-19-2022 13:53-0500 SaO2% (BldA) [Mass fraction] 97 % Benjamin Pike MD Work Phone: [facility] 12-19-2022 13:53-0500 Systolic blood pressure 144 mm[Hg] Benjamin Pike MD Work Phone: [facility] 11-30-2022 15:15-0400 Body temperature 99 [degF] Pascual Bacon MD Work Phone: [facility] 11-30-2022 15:15-0400 Diastolic blood pressure 80 mm[Hg] Pascual Bacon MD Work Phone: [facility] 11-30-2022 15:15-0400 Systolic blood pressure 128 mm[Hg] Pascual Bacon MD Work Phone: [facility] 11-30-2022 14:28-0400 Body weight 126.1 kg Pascual Bacon MD Work Phone: [facility] 11-30-2022 14:28-0400 Heart rate 82 /min Pascual Bacon MD Work Phone: [facility] 11-30-2022 14:28-0400 Respiratory rate 16 /min Pascual Bacon MD Work Phone: [facility] 11-17-2022 14:31-0400 Body height 156.3 cm Pulm Wstr Work Phone: [facility] 11-17-2022 14:31-0400 Body weight 126.1 kg Pulm Wstr Work Phone: [facility] 10-27-2022 15:02-0400 Body height 154.9 cm Tony Sylvie PA-C Work Phone: [facility] 10-27-2022 15:02-0400 Body temperature 97.5 [degF] Tony Sylvie PA-C Work Phone: [facility] 10-27-2022 15:02-0400 Body weight 125.83 kg Tony Nenana PA-C Work Phone: [facility] 10-27-2022 15:02-0400 Diastolic blood pressure 80 mm[Hg] Tony Nenana PA-C Work Phone: [facility] 10-27-2022 15:02-0400 Heart rate 97 /min Tony Sylvie PA-C Work Phone: [facility] 10-27-2022 15:02-0400 SaO2% (BldA) [Mass fraction] 96 % Tony Nenana PA-C Work Phone: [facility] 10-27-2022 15:02-0400 Systolic blood pressure 132 mm[Hg] Tony Sylvie PA-C Work Phone: [facility] 10-25-2022 14:11-0400 Body height 154.9 cm Alyson rAthur MD Work Phone: [facility] 10-25-2022 14:11-0400 Body weight 125.56 kg Alyson Arthur MD Work Phone: [facility] 10-25-2022 14:11-0400 Diastolic blood pressure 60 mm[Hg] Alyson Arthur MD Work Phone: [facility] 10-25-2022 14:11-0400 Heart rate 95 /min Alyson Arthur MD Work Phone: [facility] 10-25-2022 14:11-0400 SaO2% (BldA) [Mass fraction] 95 % Alyson Arthur MD Work Phone: [facility] 10-25-2022 14:11-0400 Systolic blood pressure 116 mm[Hg] Alyson Arthur MD Work Phone: [facility] 10-11-2022 13:08-0400 Body temperature 98 [degF] Dr. Alyson Arthur Work Phone: [facility] 10-11-2022 13:08-0400 Diastolic blood pressure 77 mm[Hg] Dr. Alyson Arthur Work Phone: [facility] 10-11-2022 13:08-0400 Heart rate 98 /min Dr. Alyson Arthur Work Phone: [facility] 10-11-2022 13:08-0400 Respiratory rate 19 /min Dr. Alyson Arthur Work Phone: [facility] 10-11-2022 13:08-0400 SaO2% (BldA) [Mass fraction] 94 % Dr. Alyson Arthur Work Phone: [facility] 10-11-2022 13:08-0400 Systolic blood pressure 143 mm[Hg] Dr. Alyson Arthur Work Phone: [facility] 10-11-2022 10:05-0400 Inhaled oxygen flow rate 0 L/min Dr. Alyson Arthur Work Phone: [facility] 10-09-2022 22:10-0400 Body height 157.[address] Alyson Arthur Work Phone: [facility] 10-09-2022 22:10-0400 Body mass index (BMI) [Ratio] 53.4 kg/m2 Dr. Alyson Arthur Work Phone: [facility] 10-09-2022 22:10-0400 Body weight 132.[address] Alyson Arthur Work Phone: [facility] 10-09-2022 21:00-0400 Body temperature 98 [degF] [facility] 10-09-2022 21:00-0400 Diastolic blood pressure 52 mm[Hg] [facility] 10-09-2022 21:00-0400 Heart rate 89 /min [facility] 10-09-2022 21:00-0400 Respiratory rate 25 /min [facility] 10-09-2022 21:00-0400 SaO2% (BldA) [Mass fraction] 92 % [facility] 10-09-2022 21:00-0400 Systolic blood pressure 137 mm[Hg] [facility] 10-09-2022 14:44-0400 Body mass index (BMI) [Ratio] 54.1 kg/m2 [facility] 10-09-2022 14:44-0400 Body weight 134.1 kg [facility] 10-09-2022 14:19-0400 Body height 157.48 cm [facility] 09-28-2022 15:08-0400 Body weight 131.09 kg Alyson Arthur MD Work Phone: [facility] 09-28-2022 15:08-0400 Diastolic blood pressure 82 mm[Hg] Alyson Arthur MD Work Phone: [facility] 09-28-2022 15:08-0400 Heart rate 98 /min Alyson Arthur MD Work Phone: [facility] 09-28-2022 15:08-0400 SaO2% (BldA) [Mass fraction] 92 % Alyson Arthur MD Work Phone: [facility] 09-28-2022 15:08-0400 Systolic blood pressure 142 mm[Hg] Alyson Arthur MD Work Phone: [facility] 09-23-2022 02:40-0400 Diastolic blood pressure 79 mm[Hg] [facility] 09-23-2022 02:40-0400 Heart rate 74 /min [facility] 09-23-2022 02:40-0400 Respiratory rate 15 /min [facility] 09-23-2022 02:40-0400 SaO2% (BldA) [Mass fraction] 97 % [facility] 09-23-2022 02:40-0400 Systolic blood pressure 168 mm[Hg] [facility] 09-23-2022 02:01-0400 Body height 157.48 cm [facility] 09-23-2022 02:01-0400 Body temperature 98.4 [degF] [facility] 06-28-2022 15:19-0400 Body weight 132.9 kg Angela Schmid FRAMEMAN.NOODLE PRESS OPERATOR Work Phone: [facility] 06-28-2022 15:19-0400 Diastolic blood pressure 72 mm[Hg] Angela Schmid FRAMEMAN.NOODLE PRESS OPERATOR Work Phone: [facility] 06-28-2022 15:19-0400 Heart rate 88 /min Angela Schmid FRAMEMAN.NOODLE PRESS OPERATOR Work Phone: [facility] 06-28-2022 15:19-0400 Respiratory rate 20 /min Angela Schmid FRAMEMAN.NOODLE PRESS OPERATOR Work Phone: [facility] 06-28-2022 15:19-0400 SaO2% (BldA) [Mass fraction] 97 % Angela Schmid FRAMEMAN.NOODLE PRESS OPERATOR Work Phone: [facility] 06-28-2022 15:19-0400 Systolic blood pressure 136 mm[Hg] Angela Schmid FRAMEMAN.NOODLE PRESS OPERATOR Work Phone: [facility] 05-23-2022 10:26-0400 Body weight 131.54 kg Kathy Colbert FRAMEMAN.NOODLE PRESS OPERATOR Work Phone: [facility] 05-23-2022 10:26-0400 Diastolic blood pressure 80 mm[Hg] Kathy Colbert FRAMEMAN.NOODLE PRESS OPERATOR Work Phone: [facility] 05-23-2022 10:26-0400 Heart rate 88 /min Kathy Gemma FRAMEMAN.NOODLE PRESS OPERATOR Work Phone: [facility] 05-23-2022 10:26-0400 Systolic blood pressure 145 mm[Hg] Kathy Bradleyedwina MCNULTY.NOODLE PRESS OPERATOR Work Phone: [facility] 05-20-2022 14:21-0400 Body weight 132 kg Alyson Arthur MD Work Phone: [facility] 05-20-2022 14:21-0400 Diastolic blood pressure 82 mm[Hg] Alyson Arthur MD Work Phone: [facility] 05-20-2022 14:21-0400 Heart rate 90 /min Alyson Arthur MD Work Phone: [facility] 05-20-2022 14:21-0400 SaO2% (BldA) [Mass fraction] 95 % Alyson Arthur MD Work Phone: [facility] 05-20-2022 14:21-0400 Systolic blood pressure 170 mm[Hg] Alyson Arthur MD Work Phone: [facility] 10-22-2021 14:19-0400 Body weight 128.82 kg NA Livingston PA-C Work Phone: [facility] 10-22-2021 14:19-0400 Diastolic blood pressure 70 mm[Hg] NA Livingston PA-C Work Phone: [facility] 10-22-2021 14:19-0400 Heart rate 107 /min NA Livingston PA-C Work Phone: [facility] 10-22-2021 14:19-0400 Respiratory rate 18 /min NA Livingston PA-C Work Phone: [facility] 10-22-2021 14:19-0400 SaO2% (BldA) [Mass fraction] 94 % NA Livingston PA-C Work Phone: [facility] 10-22-2021 14:19-0400 Systolic blood pressure 136 mm[Hg] NA Livingston PA-C Work Phone: [facility] 10-18-2021 15:47-0400 Respiratory rate 16 /min [facility] Work Phone: 10-18-2021 15:47-0400 SaO2% (BldA) [Mass fraction] 95 % [facility] Work Phone: 10-18-2021 14:20-0400 Diastolic blood pressure 92 mm[Hg] [facility] Work Phone: 10-18-2021 14:20-0400 Heart rate 106 /min [facility] Work Phone: 10-18-2021 14:20-0400 Systolic blood pressure 204 mm[Hg] [facility] Work Phone: 10-18-2021 12:54-0400 Body height 157.48 cm [facility] Work Phone: 10-18-2021 12:54-0400 Body mass index (BMI) [Ratio] 52.4 kg/m2 [facility] Work Phone: 10-18-2021 12:54-0400 Body temperature 97.8 [degF] [facility] Work Phone: 10-18-2021 12:54-0400 Body weight 130.18 kg [facility] Work Phone: Encounters Encounter Date Encounter Type Care Provider Facility Start: 11-05-2024 End: 11-05-2024 ambulatory ALYSON ARTHUR Facility:[facility] Start: 10-30-2024 End: 10-30-2024 ambulatory ALYSON ARTHUR Facility:[facility] Start: 10-03-2024 End: 10-03-2024 ambulatory Alyson Arthur MD Work Phone: [facility] Start: 10-03-2024 End: 10-03-2024 Patient encounter procedure Alyson Arthur MD Work Phone: [facility] Comment on above: Population Health Na vigation Outreach ([employer] [facility] ) Start: 09-27-2024 End: 10-02-2024 Telephone encounter Franklin Cecily Espinal DO Work Phone: Vascular Surgery Comment on above: Appointment (Needs t esting ) Start: 09-13-2024 End: 09-13-2024 Refill Alyson Arthur MD Work Phone: [facility] Comment on above: Refill Request Start: 09-10-2024 End: 09-11-2024 Telephone encounter Kathyjose Colbert FRAMEMAN.NOODLE PRESS OPERATOR Work Phone: [facility] Comment on above: Appointment Start: 09-09-2024 End: 09-09-2024 Patient encounter procedure Amauri Jo FRAMEMAN.NOODLE PRESS OPERATOR Work Phone: Pulmonary Medicine Comment on above: Multiple lung nodule s (Primary Dx); Encounter for screening for lung cancer; Tobacco use current Start: 09-09-2024 End: 09-09-2024 ambulatory TONY MAJANO Facility:[facility] Start: 09-09-2024 End: 09-09-2024 Subsequent hospital visit by physician [facility] ([facility]) Work Phone: Cat Scan Comment on above: Cigarette smoker [F1 7.210] Start: 09-03-2024 End: 09-03-2024 ambulatory Alyson Arthur MD Work Phone: [facility] [place] Start: 09-03-2024 End: 09-03-2024 Patient encounter procedure Alyson Arthur MD Work Phone: [facility] [place] Comment on above: Population Health Na vigation Outreach ([employer] [place] ) Start: 08-22-2024 End: 08-23-2024 Refill Alyson Arthur MD Work Phone: [facility] [place] Comment on above: Refill Request Start: 08-21-2024 End: 08-21-[address] Alyson Arthur MD Work Phone: -Laboratory Start: 08-21-2024 End: 08-21-[address] Walter Sellers MD -Laboratory Work Phone: Start: 08-21-2024 End: 08-21-2024 ambulatory Walter Sellers Facility:[facility] Start: 08-19-2024 End: 08-19-2024 Refill Alyson Arthur MD Work Phone: [facility] Comment on above: Refill Request Start: 08-13-2024 End: 08-13-2024 Telephone encounter Alyson Arthur MD Work Phone: [facility] [place] Comment on above: Insurance Authorizat ion Start: 08-12-2024 End: 08-13-2024 Follow-up encounter Angela Schmid APRN.NOODLE PRESS OPERATOR Work Phone: [facility] Start: 08-07-2024 End: 08-07-2024 ambulatory ALYSON ARTHUR Facility:[facility] Start: 08-07-2024 End: 08-07-2024 ambulatory ANGELA SCHMID Facility:[facility] Start: 08-07-2024 End: 08-07-2024 Office outpatient visit 25 minutes Angela Schmid APRN.NOODLE PRESS OPERATOR Work Phone: [facility] Comment on above: Uncontrolled type 2 diabetes [...] Alyson Arthur MD Work Phone: [facility] Start: 08-02-2024 End: 08-02-2024 Patient encounter procedure Alyson Arthur MD Work Phone: [facility] Comment on above: Population Health Na vigation Outreach ([facility] ) Start: 07-24-2024 End: 07-24-[address] Alyson Arthur MD Work Phone: [facility] Work Phone: Start: 07-24-2024 End: 07-24-[address] Walter Sellers MD -Laboratory Work Phone: Start: 07-24-2024 End: 07-24-2024 ambulatory [facility] Facility:[facility] Start: 06-21-2024 End: 06-21-2024 Refill Alyson Arthur MD Work Phone: [facility] Comment on above: Refill Request Start: 06-20-2024 End: 06-20-[address] Alyson Arthur MD Work Phone: [facility] Work Phone: Start: 06-20-2024 End: 06-20-[address] Walter Sellers MD -Radiology, [facility] Work Phone: Start: 06-20-2024 End: 06-20-2024 ambulatory [facility] Facility:[facility] Start: 06-03-2024 End: 06-03-2024 ambulatory Alyson Arthur MD Work Phone: [facility] Start: 06-03-2024 End: 06-03-2024 Patient encounter procedure Alyson Arthur MD Work Phone: [facility] [place] Comment on above: Population Health Na vigation Outreach ([facility] ) Start: 05-21-2024 End: 05-21-2024 ambulatory Marline Serrano [facility] Work Phone: Pharmacy Medicine Start: 05-21-2024 End: 05-21-2024 Coordination of care plan Marline Serrano [facility] Work Phone: Pharmacy Medicine Comment on above: Care Coordination (R eferred to Pharmacy for Diabetes Management) Start: 05-14-2024 End: 05-14-2024 Refill Alyson Arthur MD Work Phone: [facility] Comment on above: Refill Request Start: 05-03-2024 End: 05-03-2024 ambulatory Alyson Arthur MD Work Phone: [facility] Start: 05-03-2024 End: 05-03-2024 Patient encounter procedure Alyson Arthur MD Work Phone: [facility] Comment on above: Population Health Na vigation Outreach ([employer] [place] ) Start: 05-01-2024 End: 05-01-2024 Refill Alyson Arthur MD Work Phone: [facility] [place] Comment on above: Refill Request Start: 04-04-2024 End: 04-04-2024 Orders Only Tony Kumarienbaum FRAMEMAN.NOODLE PRESS OPERATOR Work Phone: Pulmonology Comment on above: Cigarette smoker (Pr imary Dx) Start: 04-03-2024 End: 04-03-2024 ambulatory Dennys Vásquez MA [facility] Start: 04-03-2024 End: 04-03-2024 Patient encounter procedure Dennys Vásquez MA [facility] Comment on above: Population Health Na vigation Outreach ([employer] [place]) Start: 03-28-2024 End: 03-28-2024 Refill Alyson Arthur MD Work Phone: [facility] Comment on above: Refill Request Start: 03-04-2024 End: 03-04-2024 ambulatory Estelle Uriarte MA [facility] Start: 03-04-2024 End: 03-04-2024 Patient encounter procedure Estelle Uriarte MA [facility] Comment on above: Population Health Na vigation Outreach ([employer] [place]) Start: 03-04-2024 End: 03-04-2024 Telephone encounter Alyson Arthur MD Work Phone: [facility] [place] Comment on above: Medication Request Start: 02-15-2024 End: 02-16-2024 Telephone encounter Alyson Arthur MD Work Phone: [facility] [place] Start: 02-08-2024 End: 02-08-2024 ambulatory ALYSON ARTHUR Facility:[facility] Start: 02-08-2024 End: 02-08-2024 ambulatory ALYSON ARTHUR Facility:[facility] Start: 02-08-2024 End: 02-08-2024 Office outpatient visit 40 minutes Margi Riddle APRN.NOODLE PRESS OPERATOR Work Phone: [facility] [place] Comment on [...] 01-29-2024 End: 01-29-2024 Telephone encounter Margi Riddle APRN.NOODLE PRESS OPERATOR Work Phone: [facility] [place] Comment on [...] 12-07-2023 Refill Alyson Arthur MD Work Phone: [facility] [place] Comment on above: Refill Request Start: 12-06-2023 End: 12-06-2023 Telephone encounter Alyson Arthur MD Work Phone: [facility] [place] Comment on above: Medication Request Start: 11-20-2023 End: 11-21-2023 Telephone encounter Alyson Arthur MD Work Phone: [facility] [place] Comment on above: Calling in Blood Sug ars Start: 11-10-2023 End: 11-10-2023 Refill Alyson Arthur MD Work Phone: [facility] [place] Comment on above: Refill Request Start: 11-07-2023 End: 11-07-2023 Telephone encounter Alyson Arthur MD Work Phone: [facility] [place] Comment on above: Blood Sugar Readings Start: 10-30-2023 End: 11-02-2023 Telephone encounter Alyson Arthur MD Work Phone: [facility] [place] Comment on above: Patient Update Start: 10-27-2023 End: 10-27-2023 ambulatory Mallika Burkett RN Work Phone: Civil [employer] Teacher [employer] Comment on above: ACM MIGUELITO RN ( ED utilization review per request of payer) Start: 10-25-2023 End: 10-25-2023 Refill Alyson Arthur MD Work Phone: [facility] [place] Comment on above: Refill Request Start: 10-19-2023 End: 10-20-2023 Refill [facility]lyson [facility] MD [facility] Comment on above: Refill Request Start: 10-18-2023 End: 10-18-2023 Emergency department patient visit Alyson Arthur Facility:[facility] Start: 10-18-2023 End: 10-18-2023 Telephone encounter Alyson Arthur MD [facility] Comment on above: Patient Update Start: 10-09-2023 End: 10-09-2023 Refill Alyson Arthur MD Work Phone: [facility] Comment on above: Refill Request Start: 10-05-2023 End: 10-05-2023 ambulatory Nurse Intm/Famp Triage [facility] Work Phone: Nurse Phone Triage Comment on above: Nurse Triage Call Start: 10-04-2023 End: 10-05-2023 Telephone encounter Pascual Bacon MD Work Phone: [facility] [place] Comment on above: elevated blood sugar Start: 09-22-2023 Telephone encounter Alyson Arthur MD Work Phone: [facility] [place] Comment on above: Request for order fo r adult pull ups Start: 09-19-2023 Telephone encounter Alyson Arthur MD Work Phone: [facility] [place] Comment on above: Orders Start: 08-07-2023 Refill Alyson Arthur MD Work Phone: [facility] [place] Comment on above: Refill Request Start: 07-25-2023 Refill Alyson Arthur MD Work Phone: [facility] [place] Comment on above: Refill Request Start: 07-21-2023 Telephone encounter Alyson Arthur MD Work Phone: [facility] [place] Comment on above: Patient Update Start: 07-17-2023 Telephone encounter Alyson Arthur MD Work Phone: [facility] [place] Comment on above: [facility] PT- disc harged pt today Start: 07-13-2023 Telephone encounter Alyson Arthur MD Work Phone: [facility] [place] Comment on above: Home Health Point of Care Results Start: 07-05-2023 End: 07-05-2023 Office outpatient visit 15 minutes Angela Schmid APRN.CNP Work Phone: [facility] [place] Comment on above: SBO (small bowel obs truction) (HCC) (Primary Dx) Start: 07-03-2023 End: 07-03-2023 Patient encounter procedure Laurel Pierce DO Work Phone: Stroke Neurology Comment on above: Arterial ischemic st roke (HCC) (Primary Dx); Right hemiparesis (HCC) Start: 06-29-2023 Telephone encounter Alyson Arthur MD Work Phone: Family [facility] Comment on above: FYI-PT plan of care Start: 06-28-2023 Telephone encounter Alyson Arthur MD Work Phone: [facility] [place] Comment on above: OT requesting verbal [...] / Non-visit Dr. Michell Arthur Work Phone: [facility] Start: 06-24-2023 Non-patient / Non-visit Dr. Michell Arthur Work Phone: [facility] Work Phone: Start: 06-23-2023 Non-patient / Non-visit Dr. Michell Arthur Work Phone: [facility] Work Phone: Start: 06-22-2023 End: 06-24-2023 Evaluation and management of inpatient Dr. [facility]lyson [facility] Work Phone: Start: 06-22-2023 Non-patient / Non-visit Dr. Michell Arthur Work Phone: [facility] Start: 06-22-2023 Telephone encounter Alyson Arthur MD Work Phone: [facility] [place] Comment on above: Patient Update Start: 06-09-2023 [...] Alyson Arthur MD Work Phone: [facility] [place] Comment on above: Occupational therapy orders Start: 05-31-2023 Telephone encounter Alyson Arthur MD Work Phone: [facility] [place] Comment on above: FYI-PT Home Health U pdate Start: 05-30-2023 Telephone encounter Alyson Arthur MD Work Phone: [facility] [place] Comment on above: Patient Update Start: 05-29-2023 Telephone encounter Alyson Arthur MD Work Phone: [facility] [place] Comment on above: OT Start of Care Upd ate Start: 05-29-2023 End: 05-29-2023 Subsequent hospital visit by physician Xr [facility] [place] Work Phone: Radiology Comment on above: Wrist [...] encounter Alyson Arthur MD Work Phone: [facility] [place] Comment on above: Results Patient Update Refill Request Abdominal Pain Start: 05-23-2023 Telephone encounter Alyson Arthur MD Work Phone: [facility] [place] Comment on above: results PT plan of care Start: 05-22-2023 Telephone encounter Alyson Arthur MD Work Phone: [facility] [place] Comment on above: Medication Problem Insurance Authorizat ion Start: 05-22-2023 End: 05-22-2023 Subsequent hospital visit by physician Suyapa [facility] [place] Work Phone: Radiology Comment on above: Pleural effusion [J9 0] Start: 05-22-2023 End: 05-22-2023 Patient encounter procedure Alyson Arthur MD Work Phone: [facility] [place] Comment on above: Small bowel obstruct [...] Telephone encounter Alyson Arthur MD Work Phone: [facility] [place] Comment on above: Home Health Orders [...] and management of inpatient ALYSON WARREN DO [facility] Start: 04-13-2023 Telephone encounter Alyson Arthur MD Work Phone: [facility] [place] Comment on above: Request for discharg e instructions from [facility] on Start: 04-07-2023 End: 04-23-2023 Evaluation and management of inpatient MALIA BECERRIL DO [facility] Start: 03-19-2023 ambulatory Lilia Parker RN [facility] Comment on above: Medication Problem Start: 03-18-2023 Telephone encounter Angela ritter APRN.NOODLE PRESS OPERATOR Work Phone: [facility] [place] Comment on above: Results Start: 03-17-2023 Patient encounter status Lilia acuna RN [facility] Start: 03-16-2023 ambulatory Shlomo miranda MD Work Phone: Cardiothoracic Comment on above: Patient Education Start: 03-16-2023 End: 03-16-2023 Preprocedural examination done [facility] Work Phone: [facility] Start: 03-16-2023 End: 03-16-2023 Admission to same day surgery center Anesthesia Clearance Work Phone: [facility] Work Phone: Start: 03-16-2023 End: 03-16-2023 Patient encounter procedure [facility] Work Phone: Cardiothoracic Comment on above: Pre-op exam (Primary Dx) Encounter for preope rative anesthesiology assessment for cardiac surgery (Primary Dx) Controlled type 2 di abetes mellitus without complication, unspecified whether residential insulin use (HCC); Pre-operative cardiovascular examination; Aortic valve disorder; 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); Chronic diastolic heart failure (HCC); Chronic bronchitis, simple (HCC); Morbid obesity with BMI of 50.0-59.9, adult (HCC) Controlled type 2 di abetes mellitus without complication, unspecified whether terminal operator insulin use (HCC); Pre-operative cardiovascular examination; Aortic valve disorder; 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) Start: 03-16-2023 End: 03-27-2023 Patient encounter status Shlomo Alcocer MD Work Phone: [facility] Start: 02-28-2023 End: 02-28-[address] Alyson Arthur Work Phone: [facility] Work Phone: Start: 01-27-2023 Refill Alyson Arthur MD Work Phone: [facility] Comment on above: Refill Request Start: 01-09-2023 Refill Alyson Arthur MD Work Phone: [facility] Comment on above: Refill Request Start: 12-29-2022 Refill Alyson Arthur MD Work Phone: [facility] Comment on above: Refill Request Start: 12-27-2022 Telephone encounter Leandro soto APRN.CNP Work Phone: [facility] Comment on above: multidisciplinary art team meeting Start: 12-21-2022 Patient encounter status Benjamin Pike MD Work Phone: [facility] Start: 12-21-2022 Telephone encounter Benjamin larry MD Work Phone: [facility] Comment on above: Orders Start: 12-19-2022 End: 12-19-2022 Patient encounter procedure Benjamin Pike MD Work Phone: [facility] Comment on above: Severe aortic stenos is [I35.0] (Primary Dx) Start: 12-09-2022 Refill Alyson Arthur MD Work Phone: [facility] [place] Comment on above: Refill Request Start: [...] Telephone encounter Alyson Arthur MD Work Phone: [facility] [place] Start: 11-30-2022 End: 11-30-2022 Patient encounter procedure Pascual Bacon MD Work Phone: [facility] [place] Comment on above: Blister (nonthermal) , right foot, initial encounter (Primary Dx); Bilateral lower extremity edema; Dependent rubor; Open wound of right lower extremity, subsequent encounter; Controlled type 2 diabetes mellitus with diabetic neuropathy, with long-term current use of insulin (HCC) Start: 11-30-2022 Telephone encounter Alyson Arthur MD Work Phone: [facility] [place] Comment on above: Future Appointment Start: 11-24-2022 Telephone encounter Alyson Arthur MD Work Phone: [address] [place] [address] Comment on above: Patient Update Forms Start: 11-24-2022 End: 11-24-[address] [facility] Start: 11-24-2022 End: 11-24-2022 Subsequent hospital visit by physician [facility] (I-Stat) [facility] Comment on above: Encounter for prepro cedural cardiovascular examination [Z01.810] Start: 11-21-2022 Refill Alyson Arthur MD Work Phone: [facility] [place] Comment on above: Refill Request Start: 11-17-2022 End: 11-17-2022 ambulatory Pulm Lab [facility] Work Phone: [facility]UL[facility] Comment on above: Spirometry Start: 11-17-2022 End: 11-17-2022 Patient encounter procedure [facility] Work Phone: [facility] [place] Start: 11-17-2022 End: 11-17-2022 Patient encounter status [facility] Work Phone: [facility] Start: 11-08-2022 Patient encounter status Benjamin Pike MD Work Phone: [facility] Start: 11-08-2022 Telephone encounter Benjamin larry MD Work Phone: [facility] Comment on above: Orders Start: 11-02-2022 Telephone encounter Alyson Arthur MD Work Phone: [facility] Comment on above: Patient Request/ CPA P Order Fax Start: 11-01-2022 Telephone encounter Alyson Arthur MD Work Phone: [address] [place] [address] Comment on above: Patient Question Start: 10-27-2022 End: 10-27-2022 Patient encounter procedure Tony Mercer PA-C Work Phone: General Surgery Comment on above: Cutaneous abscess of right lower extremity; Cellulitis of skin Start: 10-26-2022 Telephone encounter Alyson Arthur MD Work Phone: [facility] Comment on above: Results Start: 10-25-2022 End: 10-25-2022 Subsequent hospital visit by physician Xr [facility] [place] Work Phone: Radiology Comment on above: Bacterial pneumonia [J15.9] Start: 10-25-2022 End: 10-25-2022 Patient encounter procedure Alyson Arthur MD Work Phone: [facility] Comment on above: Bacterial pneumonia (Primary Dx); Nonrheumatic aortic valve stenosis; DDD (degenerative disc disease), lumbar; Controlled type 2 diabetes mellitus with diabetic neuropathy, with long-term current use of insulin ([facility]); Bicuspid aortic valve; Sleep apnea, unspecified type; Chronic bronchitis, simple ([facility]); Essential hypertension; Morbid obesity with BMI of 50.0-59.9, adult ([facility]); Leg cramps; Vision changes; Headache, unspecified headache type; Gastroesophageal reflux disease with esophagitis without hemorrhage; Open wound of right lower extremity, subsequent encounter; Cutaneous abscess of right lower extremity; Cellulitis of skin Start: 10-25-2022 Telephone encounter Alyson Arthur MD Work Phone: [facility] Comment on above: Pharmacy Call Start: 10-14-2022 Telephone encounter Alyson Arthur MD Work Phone: [facility] Comment on above: Insurance Authorizat ion Start: 10-11-2022 Telephone encounter Alyson Arthur MD Work Phone: [facility] Comment on above: Patient Update Start: 10-10-2022 Non-patient / Non-visit Dr. Michell Arthur Work Phone: [facility] Work Phone: Start: 10-10-2022 Non-patient / Non-visit Dr. Michell Arthur Work Phone: [facility] Start: 10-09-2022 End: 10-11-2022 Evaluation and management of inpatient [facility] 3 Work Phone: Start: 10-07-2022 Telephone encounter Benjamin larry MD Work Phone: [facility] Comment on above: Appointment (Appoint ment) Start: 10-06-2022 Telephone encounter Alyson Arthur MD Work Phone: [facility] Comment on above: Insurance Authorizat ion (anahi) Start: 10-05-2022 Refill lAyson Arthur MD Work Phone: [facility] Comment on above: Refill Request Start: 10-04-2022 Telephone encounter Kathy Colbert APRN.NOODLE PRESS OPERATOR Work Phone: Cardiology Comment on above: Results Start: 10-03-2022 Orders Only Kathy villalobos NOODLE PRESS OPERATOR Work Phone: [place] [facility] Comment on [...] 09-23-2022 End: 09-23-2022 Emergency department patient visit [facility] Work Phone: Start: 08-12-2022 Refill Alyson Arthur MD Work Phone: [facility] [place] Comment on above: Refill Request Start: 08-11-2022 Telephone encounter Alyson Arthur MD Work Phone: [facility] [place] Comment on above: Orders (order for a motorized scooter to go to [facility]) Start: 08-10-2022 Telephone encounter Alyson Arthur MD Work Phone: [facility] [place] Comment on above: Refill Request Start: 08-01-2022 Telephone encounter Alyson Arthur MD Work Phone: [facility] [place] Comment on above: Orders; CPAP Machine /Supplies Start: 07-20-2022 Refrukhsana Arthur MD Work Phone: [facility] Comment on above: Refill Request Start: 07-15-2022 Orders Only Amauri benson APRN.NOODLE PRESS OPERATOR Work Phone: [facility] Comment on above: Encounter for screen [...] 07-14-2022 Subsequent hospital visit by physician [facility] (I-Stat) Work Phone: Cat Scan Comment on above: Encounter for screen ing for lung cancer [Z12.2] Start: 07-04-2022 End: 07-04-2022 Subsequent hospital visit by physician Xr [facility] [place] Work Phone: Radiology Comment on above: Left hip pain [M25.5 52] Start: 06-28-2022 End: 06-28-2022 Office outpatient visit 15 minutes Angela Schmid APRN.NOODLE PRESS OPERATOR Work Phone: [facility] Comment on above: Primary hypertension (Primary Dx); Controlled type 2 diabetes mellitus with diabetic neuropathy, with long-term current use of insulin (HCC); Chronic back pain, unspecified back location, unspecified back pain laterality Start: 06-24-2022 End: 06-24-2022 Patient encounter procedure [facility], [facility] Work Phone: Start: 06-24-2022 Refill Alyson Arthur MD Work Phone: [address] [place] [address] Comment on above: Refill Request Start: 05-31-2022 End: 05-31-2022 Patient encounter procedure Greta Powers OD Work Phone: Ophthalmology Comment on above: Type 2 diabetes adriano itus without retinopathy (HCC) (Primary Dx); Combined forms of age-related cataract of both eyes; Dry eye syndrome of bilateral lacrimal glands; Glaucoma suspect of both eyes Start: 05-30-2022 Telephone encounter Alyson Arthur MD Work Phone: [facility] [place] Comment on above: Results Start: 05-24-2022 Telephone encounter Alyson Arthur MD Work Phone: [facility] [place] Comment on above: Results Start: 05-23-2022 End: [...] encounter procedure Alyson Arthur MD Work Phone: [facility] [place] Comment on above: Controlled type 2 di [...] Telephone encounter Alyson Arthur MD Work Phone: [facility] [place] Comment on above: Forms Start: 04-19-2022 ambulatory Alyson Arthur MD Work Phone: [facility] Comment on above: Allied Health Visit (Medication Adherence Outreach ) Start: 03-22-2022 ambulatory Aria Lr MA [facility] Comment on above: Population Health Na vigation Outreach (Care Gaps) Start: 03-21-2022 Refill [facility] MD [facility] Comment on above: Refill Request Start: 03-09-2022 End: 03-09-2022 ambulatory [facility] Work Phone: Start: 03-09-2022 End: 03-09-2022 Patient encounter procedure [facility] Start: 03-02-2022 Refill Alyson Arthur MD Work Phone: [facility] [place] Comment on above: Refill Request Start: 02-15-2022 Telephone encounter Alyson Arthur MD Work Phone: [facility] [place] Comment on above: Medication Problem Start: 02-03-2022 Refill Alyson Arthur MD Work Phone: [facility] [place] Comment on above: Refill Request Start: 12-27-2021 Refill Alyson Arthur MD Work Phone: [facility] Comment on above: Refill Request Start: 11-17-2021 Refill Alyson Arthur MD Work Phone: [facility] [place] Comment on above: Refill Request Start: 11-12-2021 Telephone encounter Alyson Arthur MD Work Phone: [facility] [place] Comment on above: Blood Sugar Updates Start: 11-05-2021 Telephone encounter Alyson Arthur MD Work Phone: [facility] [place] Comment on above: Patient Question Start: 11-03-2021 ambulatory Miriam Smith [facility] Comment on above: Population Health Na vigation Outreach ([place] [employer] /) Start: 10-29-2021 Telephone encounter Scott Livingston PA-C Work Phone: [facility] [place] Comment on above: Results Start: 10-22-2021 End: 10-22-2021 Patient encounter procedure Scott Livingston PA-C Work Phone: [facility] [place] Comment on above: Nonrheumatic aortic valve stenosis (Primary Dx); Bicuspid aortic valve; LVH (left ventricular hypertrophy); Primary hypertension; Hyperlipidemia, unspecified hyperlipidemia type; Type 2 diabetes mellitus with microalbuminuria, with long-term current use of insulin ([facility]); Microalbuminuria; Chronic bronchitis, simple ([facility]); Sleep apnea, unspecified type; Restrictive lung disease; Bipolar 1 disorder ([facility]); Morbid obesity with BMI of 50.0-59.9, adult ([facility]); GERD without esophagitis; Age-related cataract of both eyes, unspecified age-related cataract type; Vitamin D deficiency; Fatigue, unspecified type; Current use of proton pump inhibitor; Nocturnal oxygen desaturation Start: 10-18-2021 End: 10-18-2021 Emergency department patient visit [facility] Start: 10-15-2021 Refill Alyson Arthur MD Work Phone: [facility] [place] Comment on above: Refill Request Start: 09-23-2021 ambulatory Apple Baldwin [facility] [place] Comment on above: Population Health Na vigation Outreach ([place] Care Gap) Start: 09-16-2021 Refill Alyson Arthur MD Work Phone: [facility] [place] Comment on above: Refill Request Start: 08-24-2021 Refill Alyson Arthur MD Work Phone: [facility] [place] Comment on above: Refill Request Start: 07-20-2021 Refill Alyson Arthur MD Work Phone: [facility] [place] Comment on above: Refill Request Start: 07-15-2021 ambulatory Nga Hawk MA [facility] [place] Comment on above: Population Health Na vigation Outreach (Navigator [place] [employer] care gap ) Start: 06-24-2021 Refill Alyson Arthur MD Work Phone: [facility] [place] Comment on above: Refill Request Start: 06-23-2021 End: 06-23-2021 Patient encounter procedure [facility] Start: 06-14-2021 ambulatory Karen Romero RN Work Phone: Civil Engineering Teacher Management Comment on above: Community Monitoring Outreach ([employer] program enrollment intro) Start: 05-28-2021 Refill Alyson Arthur MD Work Phone: [facility] Comment on above: Refill Request Start: 12-28-2020 End: 12-28-2020 Subsequent hospital visit by physician Xr [facility] [place] Work Phone: Radiology Comment on above: Cough [R05.9] Start: 11-16-2020 Refill Alyson Arthur MD Work Phone: [facility] Comment on above: Refill Request; Refi ll Request Start: 04-15-2020 End: 04-15-2020 Subsequent hospital visit by physician Xr [facility] [place] Work Phone: Radiology Comment on above: Left wrist pain [M25 .532] Procedures Date Procedure Procedure Detail Performing Clinician Start: 08-21-2024 Methadone measurement, urine Dr. Alyson Arthur MD Work Phone: Start: 08-21-[address] Nancy Arthur MD Work Phone: Comment on above: TEST RESULTS [id number] Drug-Unb Amphetamines, Urine Negative ng/mL Ygrbct=0651 Amphetamine test includes Amphetamine and Methamphetamine. Barbiturate Negative ng/mL Ndlcum=382 Benzodiazepines Negative ng/mL Stwygl=049 Cannabinoid Negative ng/mL Vrmqyy=345 Cocaine (Metab.) Negative ng/mL Oswigr=758 Opiates Negative ng/mL Oqiblc=290 Opiate test includes Codeine and Morphine only. Phencyclidine Negative ng/mL Cutoff=25 Methadone Screen, Urine Negative ng/mL Grhxcb=005 Propoxyphene, Urine Negative ng/mL Ujqbgn=496 [facility] ORIGINAL REPORT ON FILE IN LAB CONTAINS ADDITIONAL TEST SITE INFORMATION. __ Start: 07-24-2024 Methadone measurement, urine Dr. Alyson Arthur MD Work Phone: Start: 07-24-[address] Nancy Arthur MD Work Phone: Comment on above: Test Ordered: [id number] Screen, Urine Negative ng/mL UI Reference Range: Sgitec=451Kmyzwzonjxo test includes Amphetamine and Methamphetamine.Barbiturates Negative ng/mL UI Reference Range: Prkxqm=494Dekapgofoybdqtr Negative ng/mL UI Reference Range: Gywtyb=522Xqpzwyj (Metab.), Urine Negative ng/mL UI Reference Range: Zidebk=527Zutlpkm Note: ng/mL UI See Final Results Reference Range: Jsjwwy=254Ecbrmg test includes Codeine, Morphine, Hydromorphone, Hydrocodone.Opiates Positive [A ] UI Reference Range: Zgslsn=269Laxpxl test includes Codeine, Morphine, Hydromorphone, Hydrocodone.Codeine Negative UI Reference Range: Evhvmn=285Pdpufklb Negative UI Reference Range: Bfbduf=801Sdsaamgafaihm Negative UI Reference Range: Bvenue=143Zbimjdhhjkd Positive [A ] UI Reference Range: .Hydrocodone Conf, MS, UR 303 ng/mL UI Reference Range: Vgaeyo=[id number]-Zkjyobwgagsyhl, Urine Negative ng/mL UI Reference Range: Cutoff=10Oxycodone/Oxymorphone, Urine Negative ng/mL UI Reference Range: Haokbg=082Gjjy includes Oxycodone and OxymorphonePCP, Urine Negative ng/mL UI Reference Range: Cutoff=25Methadone Screen, Urine Negative ng/mL UI Reference Range: Xqwcil=339Qvhbuzjuckqk, Urine Negative ng/mL UI Reference Range: Fxvrke=692Yhxocjuq, Urine Negative ng/mL UI Reference Range: Cutoff=2.0Test includes Fentanyl and NorfentanylThis test was developed and its performance characteristicsdetermined by [facility]. It has not been cleared orapproved by the Food and Drug Administration.Tramadol Negative ng/mL UI Reference Range: Kluadv=499Aoppzrfphrpgj, Urine Negative ng/mL UI Reference Range: Cutoff=10Creatinine, Urine 17.2 [L ] mg/dL UI Reference Range: 20.0-300.0Specific [place] 1.0071 UI Reference Range: .pH, Urine 5.5 UI Reference Range: 4.5-8.9Performed at: [facility] [id number] [facility], [place], [place] [id number] Director: Nelson Zamorano PhD, Phone: [phone] at: [facility]co[facility] Center[facility]papoq[facility] [place], [place] [id number] Director: Joe Montana PhD, Phone: [phone] Start: 06-20-2024 X-ray of knee, one o r two views Dr. Alyson Arthur MD Work Phone: Start: 02-08-2024 PFIZER-BIONTECH COVI D-19 VACCINE AGE 12+ YR (COMIRNATY) Margi Riddle FRAMEMAN.NOODLE PRESS OPERATOR Work Phone: Start: 02-08-2024 Adult depression scr eening assessment Margi Riddle FRAMEMAN.NOODLE PRESS OPERATOR Work Phone: Start: 06-27-2023 Ct angiography chest w/contrast/noncontrast Elma Hester FRAMEMAN.NOODLE PRESS OPERATOR Work Phone: Start: 06-24-2023 Plain X-ray abdomen [...] Radex hand minimum 3 views Jim Jeffers FRAMEMAN.NOODLE PRESS OPERATOR Work Phone: Start: 05-22-2023 Radiologic exam abdo men 1 view Alyson Arthur MD Work Phone: Start: 05-22-2023 Radiologic exam ches t 2 views Alyson Arthur MD Work Phone: Start: 03-16-2023 Iadna s aureus ampli fied probe tq Shlomo Alcocer MD Work Phone: Start: 11-17-2022 Co diffusing capacity M zelalem Foster FRAMEMAN.NOODLE PRESS OPERATOR Work Phone: Start: 10-25-2022 Radiologic exam ches t 2 views Alyson Arthur MD Work Phone: Start: 10-09-2022 CT angiography of ch est with contrast Start: 10-09-2022 Plain chest X-ray Start: 10-09-2022 SARS-CoV-2 & FLU Ant igen (Rapid) Start: 09-30-2022 Echo tthrc r-t 2d w/ wom-mode compl spec&colr d Kahty E Gemma FRAMEMAN.NOODLE PRESS OPERATOR Work Phone: Start: 07-14-2022 CT LUNG SCREEN WO BILL Mckeon Deysi FRAMEMAN.NOODLE PRESS OPERATOR Work Phone: Start: 07-04-2022 Radex hip unilateral with pelvis 2-3 views Marci Merlos FRAMEMAN.NOODLE PRESS OPERATOR Work Phone: Start: 06-24-2022 X-ray of cervical spine Start: 05-31-2022 End: 05-31-2022 Computerized ophthalmic imaging retina Greta Powers OD Work Phone: Start: 05-20-2022 PFIZER-BIONTECH COVI D-19 BIVALENT BOOSTER VACCINE, AGE 12+ YR Alyson Arthur MD Work Phone: Start: 10-18-2021 Plain chest X-ray Start: 12-28-2020 Radiologic exam ches t 2 views Marci Merlos FRAMEMAN.NOODLE PRESS OPERATOR Work Phone: Start: 04-15-2020 Radex wrist complete [...] an tigen measurement Prostate Cancer Screening Discussion [facility] Start: 05-03-2026 PROSTATE CANCER SCRE ENING DISCUSSION PROSTATE CANCER SCREENING DISCUSSION [facility] Start: 05-03-2026 Prostate specific an tigen measurement Prostate Cancer Screening Discussion [facility] Start: 09-11-2025 End: 09-11-2025 Patient encounter procedure Cat Scan Comment on above: CT LUNG SCREENING 12 MTH LCS Start: 09-09-2025 Screening for malign ant neoplasm of lung Lung Cancer Screening [facility] Start: 08-07-2025 Annual PCP Team [facility] bacilio Disease Visit Annual PCP Team Chronic Disease Visit [facility] Start: 08-07-2025 Diabetic foot examination Diabetic F oot Exam [facility] Start: 08-07-2025 Hepatitis B surface antibody level LDL Cholesterol [facility] Start: 02-07-2025 Annual PCP Team [facility] Specialists bacilio Disease Visit Annual PCP Team Chronic Disease Visit [facility] Start: 02-07-2025 Anxiety Screening Anxiety Screening [facility] Start: 02-07-2025 BP Controlled (<130/80) BP Controlle d (<130/80) [facility] Start: 02-07-2025 Depression Screening Depression Scre ening [facility] Start: 02-07-2025 Hepatitis B screening Urine Albumin:Creatinine Ratio [facility] Start: 02-07-2025 Hepatitis B surface antibody level LDL Cholesterol [facility] Start: 12-17-2024 End: 12-17-2024 Patient encounter procedure 12/17/2024 3:40 PM EST Office Visit [facility] [address] [place], [place] [phone] Amanda Valente MD [address], [address] [place], [place] [phone] Overdue f/u. kh [facility] Comment on above: Overdue f/u. kh Start: 11-30-2024 End: 11-30-2024 Patient encounter procedure 11/30/2024 9:40 AM EDT Office Visit [facility] [place] [address] [place], [place] [id number] Alyson Arthur MD [address] [place], [place] [id number] 3 month follow up [facility] Comment on above: 3 month follow up Start: 11-07-2024 Hemoglobin A1c measurement HbA1C [facility] Start: 10-29-2024 End: 10-29-2024 Patient encounter procedure 10/29/2024 2:00 PM EDT Office Visit Vascular Surgery [address] [place], [place] [id number] Franklin Espinal, DO [address] [place] [address] Peripheral vascular disease [I73.9] Vascular Surgery Comment on above: Peripheral vascular disease [I73.9] Start: 10-16-2024 End: 10-16-2024 Patient encounter procedure Vasculary Surgery Comment on above: Arterial ischemic st roke, MCA (middle cerebral artery), left, acute (HCC) [I63.5... Peripheral vascular disease [I73.9] Start: 10-14-2024 Influenza vaccination Influenza Vacc ine (#1) [facility] Start: 10-01-2024 End: 10-01-2024 Patient encounter procedure 10/01/2024 10:00 AM EDT Office Visit Vascular Surgery [address] [place], [place] [address] Franklin Espinal, DO [address] [place] [place] [address] VASCULAR Vascular Surgery Comment on [...] Visit Vascular Surgery [address] [place] [address] Franklin Espinal, DO [address] [place] [address] rescheduled from 08/20 Vascular Surgery Comment on above: rescheduled from Start: 08-20-2024 End: 08-20-2024 Patient encounter procedure 08/20/2024 10:00 AM EDT Office Visit Vascular Surgery [address] [place] [address] Franklin Espinal, DO [address] [place] [address] Dx: Peripheral vascular disease [I73.9] Vascular Surgery Comment on above: Dx: Peripheral vascu lar disease [I73.9] Start: 08-08-2024 Glaucoma screening Dilated Retinal E xam [facility] Comment on above: Postponed from 05/31 (Declined at this time) Start: 08-07-2024 End: 11-06-2024 Hemoglobin A1c in Blood [facility] Comment on above: Expected: 08/07/2024 , Expires: 11/06/2024 Start: 08-07-2024 End: 08-07-2024 Patient encounter procedure 08/07/2024 9:20 AM EDT Office Visit [facility] [place] [address] [place] [address] Angela Schmid APRN.NOODLE PRESS OPERATOR [address] [place] [address] Medication Follow up [facility] [place] Comment on above: Medication Follow up Start: 07-25-2024 End: 07-25-2024 Patient encounter procedure 07/25/2024 9:40 AM EDT Office Visit [facility] [address] [place], [place] [address] Margi Riddle APRN.NOODLE PRESS OPERATOR [address] [place] [address] 6 month follow up [facility] [place] Comment on above: 6 month follow up Start: 07-04-2024 Annual PCP Team [facility] bacilio Disease Visit Annual PCP Team Chronic Disease Visit [facility] Start: 07-04-2024 BP Controlled (<130/80) BP Controlle d (<130/80) [facility] Start: 06-05-2024 BP Controlled (<130/80) BP Controlle d (<130/80) [facility] Start: 05-28-2024 BP Controlled (<130/80) BP Controlle d (<130/80) [facility] Start: 05-21-2024 Annual PCP Team [facility] Specialists bacilio Disease Visit Annual PCP Team Chronic Disease Visit [facility] Start: 05-08-2024 Hemoglobin A1c measurement HbA1C [facility] Start: 04-22-2024 End: 04-22-2024 Patient encounter procedure 04/22/2024 8:30 AM EDT Office Visit Pulmonary Medicine [address] [place] [address] Amauri Jo APRN.NOODLE PRESS OPERATOR [address] [place] [address] Encounter for screening for lung cancer [Z12.2] Pulmonary Medicine Comment on above: Encounter for screen ing for lung cancer [Z12.2] Start: 03-23-2024 Hepatitis B surface antibody level LDL Cholesterol [facility] Start: 03-16-2024 BP Controlled (<130/80) BP Controlle d (<130/80) [facility] Start: 03-02-2024 Diabetic foot examination Diabetic F oot Exam [facility] Start: 02-28-2024 Annual PCP Team [facility] bacilio Disease Visit Annual PCP Team Chronic Disease Visit [facility] Start: 02-14-2024 Medicare Advantage A nnual Wellness Visit Medicare Advantage Annual Wellness Visit [facility] Start: 02-08-2024 End: 05-09-2024 Alpha 1 antitrypsin [Mass/volume] in Serum or Plasma [facility] Work Phone: Comment on above: Expected: 02/08/2024 , Expires: 05/09/2024 Start: 02-08-2024 End: 05-09-2024 Cobalamin (Vitamin B12) [Mass/volume] in Serum or Plasma [facility] Comment on above: Expected: 02/08/2024 , Expires: 05/09/2024 Start: 02-08-2024 End: 05-09-2024 Magnesium [Mass/volume] in Serum or Plasma [facility] Comment on above: Expected: 02/08/2024 , Expires: 05/09/2024 Start: 02-08-2024 End: 05-09-2024 Microalbumin/Creatinine [Mass Ratio] in Urine [facility] Comment on above: Expected: 02/08/2024 , Expires: 05/09/2024 Start: 02-08-2024 End: 05-09-2024 Thyrotropin [Units/volume] in Serum or Plasma [facility] Comment on above: Expected: 02/08/2024 , Expires: 05/09/2024 Start: 02-08-2024 End: 05-09-2024 Urinalysis complete panel - Urine [facility] Comment on above: Expected: 02/08/2024 , Expires: 05/09/2024 Start: 02-08-2024 End: 02-08-2024 Patient encounter procedure 02/08/2024 11:20 AM EST Office Visit [facility] [address] [place], [place] [phone] Margi Riddle APRN.NOODLE PRESS OPERATOR [address] [place], [place] [phone] med check.f/u [facility] Comment on above: med check.f/u Start: 01-05-2024 End: 01-05-2024 Patient encounter procedure 01/05/2024 1:20 PM EST Office Visit Family [facility] [address] [place] [address] Margi Riddle APRN.NOODLE PRESS OPERATOR [address] [place] [address] med check / follow up- see TE regarding Novolog Family [facility] Comment on above: med check / follow u p- see TE regarding Novolog Start: 12-25-2023 End: 12-25-2023 Patient encounter procedure 12/25/2023 1:20 PM EST Office Visit [facility] [place] [address] [place] [address] Angela Schmid APRN.NOODLE PRESS OPERATOR [address] [place] [address] med check / follow up- see TE regarding Novolog [facility] Comment on above: med check / follow u p- see TE regarding Novolog Start: 12-11-2023 End: 12-11-2023 Patient encounter procedure 12/11/2023 8:40 AM EDT Office Visit Cardiology [address] [place] [id number] Amanda Valente MD [address] [facility], [address] [place], [place] [phone] Follow up Cardiology Comment on above: Follow up Start: 12-06-2023 End: 03-06-2024 CBC W Auto Differential panel - Blood COMPLETE BLOOD COUNT AND DIFFERENTIAL Lab Routine Type 2 diabetes mellitus without complication, without long-term current use of insulin (HCC) Expected: 12/06/2023, Expires: 03/06/2024 [facility] Work Phone: Comment on above: Expected: 12/06/2023 , Expires: 03/06/2024 Start: 12-06-2023 End: 03-06-2024 Comprehensive metabolic 2000 panel - Serum or Plasma COMPREHENSIVE METABOLIC PANEL Lab Routine Type 2 diabetes mellitus without complication, without long-term current use of insulin (HCC) Expected: 12/06/2023, Expires: 03/06/2024 [facility] Comment on above: Expected: 12/06/2023 , Expires: 03/06/2024 Start: 12-06-2023 End: 03-06-2024 Hemoglobin A1c in Blood HEMOGLOBIN A1C Lab Routine Type 2 diabetes mellitus without complication, without long-term current use of insulin (HCC) Expected: 12/06/2023, Expires: 03/06/2024 [facility] Comment on above: Expected: 12/06/2023 , Expires: 03/06/2024 Start: 12-06-2023 End: 03-06-2024 Lipid 1996 panel - Serum or Plasma LIPID PANEL BASIC Lab Routine Type 2 diabetes mellitus without complication, without long-term current use of insulin (HCC) Expected: 12/06/2023, Expires: 03/06/2024 [facility] Comment on above: Expected: 12/06/2023 , Expires: 03/06/2024 Start: 12-01-2023 Annual PCP Team [facility] Specialists bacilio Disease Visit Annual PCP Team Chronic Disease Visit [facility] Start: 11-21-2023 Hemoglobin A1c measurement HbA1C [facility] Start: 11-10-2023 Annual PCP Team Clarity Specialists bacilio Disease Visit Annual PCP Team Chronic Disease Visit [facility] Start: 11-03-2023 End: 11-03-2023 Patient encounter procedure 11/03/2023 10:40 AM EDT Office Visit [facility] [place] [address] [place], [place] [phone] Margi Riddle APRN.NOODLE PRESS OPERATOR [address] [place] [address] [facility] Follow Up/pneumonia 10/18/23 [facility] Comment on above: [facility] Follow Up/pne umonia 10/18/23 Start: 10-26-2023 Annual PCP Team Clarity Specialists bacilio Disease Visit Annual PCP Team Chronic Disease Visit [facility] Start: 10-26-2023 BP Controlled (<130/80) BP Controlle d (<130/80) [facility] Start: 10-26-2023 Hepatitis B surface antibody level LDL Cholesterol [facility] Start: 10-15-2023 Covid-19 Vaccine ( season) Covid-19 Vaccine ( season) [facility] Start: 10-15-2023 Covid-19 Vaccine ( season) Covid-19 Vaccine () [facility] Start: 10-15-2023 Influenza vaccination Influenza Vacc ine (#1) [facility] Start: 09-29-2023 ANNUAL PCP TEAM PROOF PLATE MAKER BACILIO DISEASE VISIT ANNUAL PCP TEAM CHRONIC DISEASE VISIT [facility] Start: 08-28-2023 Hemoglobin A1c measurement HbA1C [facility] Start: 07-19-2023 End: 07-19-2023 Patient encounter procedure 07/19/2023 3:00 PM EDT Office Visit Neurology [address] [place] [address] [place] [address] Ivy Avalos MD [address] [place] [address] [address] [place], [place] [id number] Right hemiparesis (HCC) [G81.91] Neurology Comment on above: Right hemiparesis (H CC) [G81.91] Start: 07-16-2023 End: 08-14-2023 CT LUNG SCREEN WO IVCON CT LUNG SCREEN WO IVCON Radiology Routine Encounter for screening for lung cancer Tobacco use current Expected: 07/16/2023, Expires: 08/14/2023 [facility] Work Phone: Comment on above: Expected: 07/16/2023 , Expires: 08/14/2023 Start: 07-15-2023 Influenza vaccination LUNG CANCER SC REENING [facility] Start: 07-15-2023 Screening for malign ant neoplasm of lung Lung Cancer Screening [facility] Start: 07-05-2023 End: 07-05-2023 Patient encounter procedure [facility] Comment on above: hospital follow up hospital follow up ( [facility] dc'd 06/24/23 dx: SBO) Start: 07-03-2023 End: 07-03-2023 Patient encounter procedure 07/03/2023 10:00 AM EDT Office Visit Stroke Neurology [address] [place] [address] Laurel Pierce DO [address] [place] [address] HD Stroke [facility] Comment on above: HD Stroke Start: 06-29-2023 ANNUAL PCP TEAM PROOF PLATE MAKER BACILIO DISEASE VISIT ANNUAL PCP TEAM CHRONIC DISEASE VISIT [facility] Start: 06-27-2023 End: 06-27-2023 Patient encounter procedure Radiology Comment on above: Aneurysm of ascendin g 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 (HCC) [I71.21] 3 Month Follow Up Start: 06-24-2023 Patient discharge [facility] Start: 06-23-2023 End: 06-24-2023 [facility] Start: 06-23-2023 Following clinical p athway protocol [facility] Start: 06-23-2023 Referral to service [facility] Start: 06-23-2023 End: 06-23-2023 Patient encounter procedure 06/23/2023 11:20 AM EDT Office Visit [facility] [place] [address] [place] [address] Alyson Arthur MD [address] [place] [address] 4 week follow up. Hospital follow up [facility] [place] Comment on above: 4 week follow up. Ho spital follow up Start: 06-23-2023 Referral to general surgeon [facility] Start: 06-23-2023 Blood chemistry [facility] Start: 06-23-2023 Complete blood count [facility] Start: 06-23-2023 Following clinical p athway protocol [facility] Start: 06-23-2023 Application of intermittent pneumatic compression device [facility] Start: 06-23-2023 Inhalation therapy procedure [facility] Start: 06-22-2023 End: 06-22-2023 [facility] Start: 06-22-2023 Following clinical p athway protocol [facility] Start: 06-22-2023 Ambulation without limitation [facility] Start: 06-22-2023 Assessment of risk o f venous thromboembolism [facility] Start: 06-22-2023 Insertion of cathete r into peripheral vein [facility] Start: 06-22-2023 Oxygen therapy [facility] Start: 06-22-2023 Providing care accor ding to standard [facility] Start: 06-22-2023 Referral to occupati onal therapist [facility] Start: 06-22-2023 Referral to service [facility] Start: 06-22-2023 Plain X-ray abdomen Abdomen Si ngle View (Portable) [facility] Start: 06-22-2023 XR Abdomen Single view [facility] Start: 06-22-2023 Care regimes management [facility] Start: 06-22-2023 Notification of physician [facility] Start: 06-22-2023 [facility] Start: 06-22-2023 Verification routine [facility] Start: 06-22-2023 Admission procedure [facility] Start: 06-22-2023 Hospital admission, emergency, from emergency room, medical nature [facility] Start: 06-22-2023 [facility] Start: 06-06-2023 End: 06-06-2023 Patient encounter procedure 06/06/2023 3:15 PM EDT Office Visit Cardiology [address] [place] [address] Kiel Barnes MD [address] [place] [address] OPEN HEART Cardiology Comment on above: OPEN HEART Start: 06-01-2023 Glaucoma screening Dilated Retinal E xam [facility] Start: 06-01-2023 Hepatitis C antibody , confirmatory test DILATED RETINAL EXAM [facility] Start: 05-28-2023 Hepatitis B screening URINE ALBUMIN:CREATININE RATIO [facility] Start: 05-22-2023 End: 08-21-2023 Comprehensive metabolic 2000 panel - Serum or Plasma [facility] Work Phone: Comment on above: Expected: 05/22/2023 , Expires: 08/21/2023 Start: 05-21-2023 3 comp foot exam completed DIABETIC FOOT EXAM [facility] Start: 05-21-2023 ANNUAL PCP TEAM PROOF PLATE MAKER BACILIO DISEASE VISIT ANNUAL PCP TEAM CHRONIC DISEASE VISIT [facility] Start: 05-21-2023 Diabetic foot examination Diabetic F oot Exam [facility] Start: 05-21-2023 HIV SCREENING HIV SCREENING [facility] Comment on above: Postponed from 09/14 (Declined at this time) Start: 05-21-2023 HIV screening HIV Screening [facility] Comment on above: Postponed from 09/14 (Declined at this time) Start: 05-21-2023 SHINGRIX VACCINE (1 of 2) PARKER GRIX VACCINE (1 of 2) [facility] Comment on above: Postponed from 09/14 (Declined at this time) Start: 05-21-2023 Urine microalbumin profile [facility] Comment on above: Postponed from 09/14 (Declined at this time) Start: 03-31-2023 Hemoglobin A1c measurement HbA1C [facility] Start: 03-31-2023 Hemoglobin A1c/Hemoglobin.total in Blood HBA1C [facility] Start: 02-13-2023 Behavioral Health Screening Behavioral Health Screening [facility] Start: 02-13-2023 Depression Assessment Depression Ass essment [facility] Start: 11-30-2022 End: 03-01-2023 Comprehensive metabolic 2000 panel - Serum or Plasma [facility] Work Phone: Comment on above: Expected: 11/30/2022 , Expires: 03/01/2023 Start: 11-19-2022 Hemoglobin A1c/Hemoglobin.total in Blood HBA1C [facility] Start: 10-27-2022 Hepatitis B surface antibody level LDL CHOLESTEROL [facility] Start: 10-25-2022 End: 12-25-2022 Basic metabolic 2000 panel - Serum or Plasma [facility] Work Phone: Comment on above: Expected: 10/25/2022 , Expires: 12/25/2022 Start: 10-25-2022 End: 12-25-2022 LIPID PANEL, NONFASTING [facility] Work Phone: Comment on above: Expected: 10/25/2022 , Expires: 12/25/2022 Start: 10-25-2022 End: 12-25-2022 Magnesium [Mass/volume] in Serum or Plasma [facility] Work Phone: Comment on above: Expected: 10/25/2022 , Expires: 12/25/2022 Start: 10-22-2022 3 comp foot exam completed DIABETIC FOOT EXAM [facility] Start: 10-22-2022 ANNUAL PCP TEAM PROOF PLATE MAKER BACILIO DISEASE VISIT ANNUAL PCP TEAM CHRONIC DISEASE VISIT [facility] Start: 10-14-2022 Covid-19 Vaccine ( season) Covid-19 Vaccine () [facility] Start: 10-14-2022 Influenza vaccination C [facility] Start: 10-13-2022 Blood chemistry [facility] Start: 10-12-2022 Blood chemistry [facility] Start: 10-11-2022 Patient discharge [facility] Start: 10-11-2022 Oxygen therapy [facility] Start: 10-09-2022 Following clinical p athway protocol [facility] Start: 10-09-2022 Assessment of risk o f venous thromboembolism [facility] Start: 10-09-2022 Care regimes management [facility] Start: 10-09-2022 Consultation for treatment [facility] Start: 10-09-2022 Continuous positive airway pressure ventilation treatment [facility] Start: 10-09-2022 Inhalation therapy procedure [facility] Start: 10-09-2022 Insertion of cathete r into peripheral vein [facility] Start: 10-09-2022 Notification of physician [facility] Start: 10-09-2022 Providing care accor ding to standard [facility] Start: 10-09-2022 Provision of activit y privileges [facility] Start: 10-09-2022 Referral to occupati onal therapist [facility] Start: 10-09-2022 Referral to service [facility] Start: 10-09-2022 [facility] Start: 10-09-2022 Streptococcus pneumo niae antigen assay [facility] Start: 10-09-2022 Verification routine [facility] Start: 10-09-2022 Admission procedure [facility] Start: 08-09-2022 End: 10-09-2022 Hemoglobin A1c in Blood HGB A1C Lab Routine Controlled type 2 diabetes mellitus with diabetic neuropathy, with long-term current use of insulin (HCC) Expected: 08/09/2022, Expires: 10/09/2022 [facility] Work Phone: Comment on above: Expected: 08/09/2022 , Expires: 10/09/2022 Start: 05-23-2022 End: 07-23-2022 Basic metabolic 2000 panel - Serum or Plasma BASIC METABOLIC PNL Lab Routine Bicuspid aortic valve Nonrheumatic aortic valve stenosis Edema, unspecified type Chronic diastolic heart failure (HCC) Primary hypertension Expected: 05/23/2022, Expires: 07/23/2022 [facility] Work Phone: Comment on above: Expected: 05/23/2022 , Expires: 07/23/2022 Start: 05-23-2022 End: 07-23-2022 Natriuretic peptide.B prohormone N-Terminal [Mass/volume] in Serum or Plasma NT PRO BNP Lab Routine Bicuspid aortic valve Nonrheumatic aortic valve stenosis Edema, unspecified type Chronic diastolic heart failure (HCC) Expected: 05/23/2022, Expires: 07/23/2022 [facility] Work Phone: Comment on above: Expected: 05/23/2022 , Expires: 07/23/2022 Start: 05-20-2022 End: 07-20-2022 ALBUMIN/CREAT RATIO RND UR ALBUMIN/CREAT RATIO RND UR Lab Routine Type 2 diabetes mellitus with microalbuminuria, with long-term current use of insulin (HCC) Expected: 05/20/2022, Expires: 07/20/2022 [facility] Work Phone: Comment on above: Expected: 05/20/2022 , Expires: 07/20/2022 Start: 05-20-2022 End: 07-20-2022 Comprehensive metabolic 2000 panel - Serum or Plasma [facility] Work Phone: Comment on above: Expected: 05/20/2022 , Expires: 07/20/2022 Start: 05-20-2022 End: 07-20-2022 Hemoglobin A1c in Blood [facility] Work Phone: Comment on above: Expected: 05/20/2022 , Expires: 07/20/2022 Start: 05-03-2022 3 comp foot exam completed DIABETIC FOOT EXAM [facility] Start: 05-03-2022 ANNUAL PCP TEAM PROOF PLATE MAKER BACILIO DISEASE VISIT ANNUAL PCP TEAM CHRONIC DISEASE VISIT [facility] Start: 05-03-2022 Hepatitis B screening URINE ALBUMIN:CREATININE RATIO [facility] Start: 05-03-2022 Hepatitis B surface antibody level LDL CHOLESTEROL [facility] Start: 05-03-2022 HIV SCREENING HIV SCREENING [facility] Comment on above: Postponed from 09/14 (Declined at this time) Start: 02-13-2022 DEPRESSION ASSESSMENT DEPRESSION ASS ESSMENT [facility] Start: 01-26-2022 Hemoglobin A1c/Hemoglobin.total in Blood HBA1C [facility] Start: 01-21-2022 End: 03-23-2022 Hemoglobin A1c in Blood HGB A1C Lab Routine Type 2 diabetes mellitus with microalbuminuria, with long-term current use of insulin (HCC) Expected: 01/21/2022, Expires: 03/23/2022 [facility] Work Phone: Comment on above: Expected: 01/21/2022 , Expires: 03/23/2022 Start: 10-23-2021 End: 12-23-2021 Magnesium [Mass/volume] in Serum or Plasma MAGNESIUM BLD Lab Routine Current use of proton pump inhibitor Expected: 10/23/2021, Expires: 12/23/2021 [facility] Work Phone: Comment on above: Expected: 10/23/2021 , Expires: 12/23/2021 Start: 10-22-2021 End: 12-22-2021 25-hydroxyvitamin D3 [Mass/volume] in Serum or Plasma VITAMIN D 25 HYDROXY Lab Routine Vitamin D deficiency Expected: 10/22/2021, Expires: 12/22/2021 [facility] Work Phone: Comment on above: Expected: 10/22/2021 , Expires: 12/22/2021 Start: 10-22-2021 End: 12-22-2021 CBC panel - Blood by Automated count CBC Lab Routine Type 2 diabetes mellitus with microalbuminuria, with long-term current use of insulin (HCC) Fatigue, unspecified type Expected: 10/22/2021, Expires: 12/22/2021 [facility] Work Phone: Comment on above: Expected: 10/22/2021 , Expires: 12/22/2021 Start: 10-22-2021 End: 12-22-2021 Comprehensive metabolic 2000 panel - Serum or Plasma COMP METABOLIC PANEL Lab Routine Nonrheumatic aortic valve stenosis Bicuspid aortic valve Expected: 10/22/2021, Expires: 12/22/2021 [facility] Work Phone: Comment on above: Expected: 10/22/2021 , Expires: 12/22/2021 Start: 10-22-2021 End: 12-22-2021 Lipid 1996 panel - Serum or Plasma LIPID PANEL BASIC Lab Routine Nonrheumatic aortic valve stenosis Bicuspid aortic valve Expected: 10/22/2021, Expires: 12/22/2021 [facility] Work Phone: Comment on above: Expected: 10/22/2021 , Expires: 12/22/2021 Start: 10-22-2021 End: 12-22-2021 Thyrotropin [Units/volume] in Serum or Plasma TSH BLD Lab Routine Morbid obesity with BMI of 50.0-59.9, adult (HCC) Expected: 10/22/2021, Expires: 12/22/2021 [facility] Work Phone: Comment on above: Expected: 10/22/2021 , Expires: 12/22/2021 Start: 10-18-2021 [facility] Work Phone: Start: 10-14-2021 Influenza vaccination C [facility] Start: 2021 Hepatitis B Vaccine (1 of 3 - Risk 3-dose series) Hepatitis B Vaccine (1 of 3 - Risk 3-dose series) [facility] Start: 2021 RSV Vaccine (1 - 1-d ose 60+ series) RSV Vaccine (1 - 1-dose 60+ series) [facility] Start: 2021 RSV Vaccine (1 - Ris k 60-74 years 1-dose series) RSV Vaccine (1 - Risk 60-74 years 1-dose series) [facility] Start: 08-03-2021 Hemoglobin A1c/Hemoglobin.total in Blood HBA1C [facility] Start: 03-24-2021 COVID-19 VACCINE (3 - Booster for Pfizer series) COVID-19 VACCINE (3 - Booster for Pfizer series) [facility] Start: 02-13-2021 DEPRESSION ASSESSMENT DEPRESSION ASS ESSMENT [facility] Start: 12-17-2020 COVID-19 VACCINE (3 - Booster for Pfizer series) COVID-19 VACCINE (3 - Booster for Pfizer series) [facility] Start: 01-13-2020 Hepatitis C antibody , confirmatory test DILATED RETINAL EXAM [facility] Start: 02-13-2017 Colonoscopy COLONOSCOPY [facility] Start: 02-13-2017 COLORECTAL CANCER SCREENING COLORECTAL CANCER SCREENING [facility] Start: 02-13-2017 Screening for malign ant neoplasm of colon [facility] Start: 11-10-2016 Adult depression scr eening assessment DEPRESSION SCREENING [facility] Start: 11-02-2011 PNEUMOCOCCAL (2 - PCV) PNEUMOCOCCAL (2 - PCV) [facility] Start: 09-15-2011 Influenza vaccination LUNG CANCER SC REENING [facility] Start: 09-15-2011 SHINGRIX VACCINE (1 of 2) PARKER GRIX VACCINE (1 of 2) [facility] Start: 2006 COLOGUARD (FIT-DNA) COLOGUARD (FIT-D NA) [facility] Start: [address] COLONOGRAPHY [facility] Start: 2006 FECAL OCCULT BLOOD FECAL OCCULT BLOO D [facility] Start: 2006 Screening for malign ant neoplasm of colon [facility] Start: 2006 SIGMOIDOSCOPY SIGMOIDOSCOPY [facility] Start: 09-15-1991 Zoledronic acid therapy Alpha- 1 Antitrypsin Deficiency Screening [facility] Start: 1980 HEPATITIS B (1 of 3 - Risk 3-dose series) HEPATITIS B (1 of 3 - Risk 3-dose series) [facility] Start: 1980 Urine microalbumin profile [facility] Start: 09-15-1979 Anxiety Screening Anxiety Screening [facility] Start: 09-15-1979 BP CONTROLLED (<130/80) BP CONTROLLE D (<130/80) [facility] Start: 09-15-1979 Depression Screening Depression Scre ening [facility] Start: 09-15-1979 HIV SCREENING HIV SCREENING [facility] Start: 09-15-1979 HIV screening HIV Screening [facility] Start: 09-15-1979 Spirometry Spirometry [facility] Anion gap measurement [facility] BUN/Creatinine ratio [facility] Calcium [Mass/volume ] in Serum or Plasma [facility] Carbon dioxide, tota l [Moles/volume] in Serum or Plasma [facility] Chloride [Moles/volu me] in Serum or Plasma [facility] COLOGUARD COLOGUARD Lab Ro utine Screening for colon cancer Ordered: 05/20/2022 [facility] Work Phone: Comment on above: Ordered: 05/20/2022 Creatinine [Moles/vo lume] in Serum or Plasma [facility] End: 12-08-2023 Ct angio abd&plvis cntrst mtrl w/wo cntrst img CTA ABD/PEL W IVCON Radiology Routine Encounter for preprocedural cardiovascular examination Sleep apnea, unspecified type Bicuspid aortic valve Nonrheumatic aortic valve stenosis Preoperative testing 1 Occurrences starting 11/08/2022 until 12/08/2023 [facility] Work Phone: Comment on above: 1 Occurrences starti ng 11/08/2022 until 12/08/2023 Ct angio abd&plvis c ntrst mtrl w/wo cntrst img CTA ABD/PEL W IVCON Radiology Routine Encounter for preprocedural cardiovascular examination Sleep apnea, unspecified type Bicuspid aortic valve Nonrheumatic aortic valve stenosis Preoperative testing 11/24/2022 9:39 AM EDT [facility] Work Phone: End: 12-08-2023 Ct angiography chest w/contrast/noncontrast CTA CHEST (GATED) WO/W IVCON Radiology Routine Encounter for preprocedural cardiovascular examination Sleep apnea, unspecified type Bicuspid aortic valve Nonrheumatic aortic valve stenosis Preoperative testing 1 Occurrences starting 11/08/2022 until 12/08/2023 [facility] Work Phone: Comment on above: 1 Occurrences starti ng 11/08/2022 until 12/08/2023 Ct angiography chest w/contrast/noncontrast CTA CHEST (GATED) WO/W IVCON Radiology Routine Encounter for preprocedural cardiovascular examination Sleep apnea, unspecified type Bicuspid aortic valve Nonrheumatic aortic valve stenosis Preoperative testing 11/24/2022 9:39 AM EDT [facility] Work Phone: End: 05-04-2025 CT Chest for screening WO contrast CT LUNG SCREEN WO IVCON Radiology Routine Cigarette smoker 1 Occurrences starting 04/04/2024 until 05/04/2025 [facility] Work Phone: Comment on above: 1 Occurrences starti ng 04/04/2024 until 05/04/2025 End: 10-09-2025 CT Chest for screening WO contrast CT LUNG SCREEN WO IVCON Radiology Routine Encounter for screening for lung cancer Tobacco use current 1 Occurrences starting 09/09/2024 until 10/09/2025 [facility] Work Phone: Comment on above: 1 Occurrences starti ng 09/09/2024 until 10/09/2025 CT Chest for screeni ng WO contrast CT LUNG SCREEN WO IVCON Radiology Routine Cigarette smoker 09/09/2024 10:38 AM EDT [facility] Work Phone: DEFINITY CONTRAST DEFINITY CONTR AST Echo Routine Nonrheumatic aortic valve stenosis Bicuspid aortic valve LVH (left ventricular hypertrophy) Ordered: 10/22/2021 [facility] Work Phone: Comment on above: Ordered: 10/22/2021 End: 10-22-2022 Echocardiography ECHO Cardiology SEVERIANO Nonrheumatic aortic valve stenosis Bicuspid aortic valve LVH (left ventricular hypertrophy) 1 Occurrences starting 10/22/2021 until 10/22/2022 [facility] Work Phone: Comment on above: 1 Occurrences starti ng 10/22/2021 until 10/22/2022 End: 05-24-2023 Echocardiography ECHO Cardiology Routine Bicuspid aortic valve Nonrheumatic aortic valve stenosis 1 Occurrences starting 05/23/2022 until 05/24/2023 [facility] Work Phone: Comment on above: 1 Occurrences starti ng 05/23/2022 until 05/24/2023 Erythrocyte mean corpuscular volume determination [facility] Glucose [Mass/volume ] in Serum or Plasma [facility] Hematocrit [Volume Fraction] of Blood [facility] Hemoglobin [Mass/vol ume] in Blood [facility] Hemoglobin A1c/Hemoglobin.total in Blood [facility] Hemoglobin.gastroint estina l.lower [Presence] in Stool by Immunoassay IMMUNOCHEMICAL FECAL OCCULT BLOOD TEST Lab Routine Screening for colon cancer Ordered: 02/08/2024 [facility] Comment on above: Ordered: 02/08/2024 Legionella pneumophi la Ag [Presence] in Urine [facility] Leukocytes [#/volume ] in Blood [facility] End: 12-08-2023 LUNG DIFFUSION CAPACITY (DLCO) LUNG DIFFUSION CAPACITY (DLCO) PFT Routine Encounter for preprocedural cardiovascular examination Sleep apnea, unspecified type Bicuspid aortic valve Nonrheumatic aortic valve stenosis Preoperative testing 1 Occurrences starting 11/08/2022 until 12/08/2023 [facility] Work Phone: Comment on above: 1 Occurrences starti ng 11/08/2022 until 12/08/2023 End: 12-08-2023 LUNG VOLUMES LUNG VOLUMES PFT Routine Encounter for preprocedural cardiovascular examination Sleep apnea, unspecified type Bicuspid aortic valve Nonrheumatic aortic valve stenosis Preoperative testing 1 Occurrences starting 11/08/2022 until 12/08/2023 [facility] Work Phone: Comment on above: 1 Occurrences starti ng 11/08/2022 until 12/08/2023 Mean corpuscular hemoglobin concentration determination [facility] Mean corpuscular hemoglobin determination [facility] Measurement of renal function [facility] End: 11-24-2023 Mri brain brain stem w/o contrast material MRI BRAIN WO IVCON Radiology Routine Vision changes Headache, unspecified headache type 1 Occurrences starting 10/25/2022 until 11/24/2023 [facility] Work Phone: Comment on above: 1 Occurrences starti ng 10/25/2022 until 11/24/2023 Patient Education [facility] Work Phone: Patient referral [facility] Work Phone: Platelets [#/volume] in Blood [facility] Potassium [Moles/vol ume] in Serum or Plasma [facility] End: 12-06-2023 PVR ANK PRESS [facility] PVR ANK PR[facility] Vascular Lab Routine Diminished pulses in lower extremity Diabetic mononeuropathy associated with diabetes mellitus due to underlying condition (HCC) 1 Occurrences starting 12/05/2022 until 12/06/2023 [facility] Work Phone: Comment on above: 1 Occurrences starti ng 12/05/2022 until 12/06/2023 End: 11-24-2023 Radiologic exam chest 2 views XR CHEST 2V FRONTAL/LAT Radiology Routine Bacterial pneumonia 1 Occurrences starting 10/25/2022 until 11/24/2023 [facility] Work Phone: Comment on above: 1 Occurrences starti ng 10/25/2022 until 11/24/2023 Radiologic exam ches t 2 views XR CHEST 2V FRONTAL/LAT Radiology Routine Bacterial pneumonia 10/25/2022 3:50 PM EDT [facility] Work Phone: Red blood cell count [facility] Red cell distributio n width determination [facility] Removal impacted cer umen irrigation/lvg unilat AMBULATORY EAR LAVAGE/IRRIGATION Procedures Routine Impacted cerumen of left ear Ordered: 08/07/2024 [facility] Comment on above: Ordered: 08/07/2024 Sodium [Moles/volume ] in Serum or Plasma [facility] End: 12-08-2023 SPIROMETRY BASELINE ONLY SPIROMETRY BASELINE ONLY PFT Routine Encounter for preprocedural cardiovascular examination Sleep apnea, unspecified type Bicuspid aortic valve Nonrheumatic aortic valve stenosis Preoperative testing 1 Occurrences starting 11/08/2022 until 12/08/2023 [facility] Work Phone: Comment on above: 1 Occurrences starti ng 11/08/2022 until 12/08/2023 Urea nitrogen [Mass/volume] in Serum or Plasma [facility] End: 08-07-2025 US Carotid arteries - bilateral US CAROTID ARTERIES [facility] Vascular Lab Routine Arterial ischemic stroke, MCA (middle cerebral artery), left, acute (HCC) Bilateral carotid artery stenosis 1 Occurrences starting 08/07/2024 until 08/07/2025 [facility] Comment on above: 1 Occurrences starti ng 08/07/2024 until 08/07/2025 End: 12-21-2023 US CAROTID ARTERIES [facility] US CAROTID ARTERIES [facility] Vascular Lab Routine Preoperative testing Encounter for preprocedural cardiovascular examination Severe aortic stenosis 1 Occurrences starting 12/21/2022 until 12/21/2023 [facility] Work Phone: Comment on above: 1 Occurrences starti ng 12/21/2022 until 12/21/2023 End: 08-07-2025 US.doppler Extremity arteries - bilateral for physiologic artery study PVR ANK PRESS [facility] Vascular Lab Routine Peripheral vascular disease 1 Occurrences starting 08/07/2024 until 08/07/2025 [facility] Work Phone: Comment on above: 1 Occurrences starti ng 08/07/2024 until 08/07/2025 End: 06-20-2024 XR Abdomen Supine and Upright XR ABDOMEN 1V SUPINE Radiology Routine Small bowel obstruction (HCC) 1 Occurrences starting 05/22/2023 until 06/20/2024 [facility] Work Phone: Comment on above: 1 Occurrences starti ng 05/22/2023 until 06/20/2024 XR Abdomen Supine an d Upright XR ABDOMEN 1V SUPINE Radiology Routine Small bowel obstruction (HCC) 05/22/2023 11:02 AM EDT [facility] Work Phone: End: 01-04-2024 XR FOOT GENERAL 3V AP/LAT/OBL RIGHT XR FOOT GENERAL 3V AP/LAT/OBL RIGHT Radiology Routine Venous insufficiency Blister 1 Occurrences starting 12/05/2022 until 01/04/2024 [facility] Work Phone: Comment on above: 1 Occurrences starti ng 12/05/2022 until 01/04/2024 XR FOOT GENERAL 3V AP/LAT/OBL RIGHT XR FOOT GENERAL 3V AP/LAT/OBL RIGHT Radiology Routine Venous insufficiency Blister 12/05/2022 4:52 PM EDT [facility] Work Phone: End: 01-04-2024 XR TIBIA FIBULA 2V AP/LAT RIGHT XR TIBIA FIBULA 2V AP/LAT RIGHT Radiology Routine Venous insufficiency 1 Occurrences starting 12/05/2022 until 01/04/2024 [facility] Work Phone: Comment on above: 1 Occurrences starti ng 12/05/2022 until 01/04/2024 XR TIBIA FIBULA 2V A P/LAT RIGHT XR TIBIA FIBULA 2V AP/LAT RIGHT Radiology Routine Venous insufficiency 12/05/2022 4:52 PM EDT [facility] Work Phone: [facility] & VAS [facility] Immunizations Immunization Date Immunization Notes Care Provider Re pabon 02-08-2024 COVID-19 vaccine, ag e 12+ yr ([employer] [facility]) 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: [facility] 02-08-2024 influenza, seasonal, injectable 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: [facility] 02-08-2024 influenza virus vaccine, unspecified formulation Alyson Arthur MD Work Phone: [facility] 02-27-2023 influenza virus vaccine, unspecified formulation MALIA BECERRIL DO Leland Mckoy 02-27-2023 influenza, injectabl e, quadrivalent, contains preservative [facility] Work Phone: [facility] 05-20-2022 pneumococcal Conjuga te, unspecified formulation Alyson Arthur MD Work Phone: [facility] Work Phone: 05-20-2022 COVID-19 booster vaccine, age 12+ yr, bivalent ([id number]) Alyson Arthur MD Work Phone: [facility] 05-20-2022 pneumococcal (PCV20) vaccine, 20 valent (PREVNAR 20) Alyson Arthur MD Work Phone: [facility] 05-20-2022 pneumococcal 20-adelaide nt conjugate vaccine MALIA BECERRIL DO [facility] 10-22-2020 Covid (Pfizer) [facility] 09-17-2020 Covid (Pfizer) [facility] Comment on above: Result Comment: 2023: [id number] 11-06-2017 influenza, injectabl e, quadrivalent, contains preservative Alyson Arthur MD Work Phone: [facility] 11-06-2017 influenza, injectabl e, quadrivalent, preservative free Dr. Alyson Arthur Work Phone: [facility] 11-06-2017 influenza, seasonal, injectable [facility] 11-06-2017 influenza virus vaccine, unspecified formulation Alyson Arthur MD Work Phone: [facility] 11-11-2016 influenza virus vaccine, unspecified formulation MALIA BECERRIL DO [facility] 11-11-2016 influenza, injectabl e, quadrivalent, contains preservative Alyson Arthur MD Work Phone: [facility] 11-11-2016 influenza, injectabl e, quadrivalent, preservative free Dr. Alyson Arthur Work Phone: [facility] 11-11-2016 influenza, seasonal, injectable [facility] 11-11-2015 influenza virus vaccine, unspecified formulation MALIA BECERRIL DO [facility] 11-11-2015 influenza, injectabl e, quadrivalent, contains preservative Alyson Arthur MD Work Phone: [facility] 11-11-2015 influenza, injectabl e, quadrivalent, preservative free Dr. Alyson Arthur Work Phone: [facility] 11-11-2015 influenza, seasonal, injectable [facility] 11-26-2013 influenza, seasonal, injectable Alyson Arthur MD Work Phone: [facility] 11-23-2013 influenza virus vaccine, unspecified formulation MALIA BECERRIL [facility] 11-23-2013 influenza, injectabl e, quadrivalent, preservative free Dr. Alyson Arthur Work Phone: [facility] 11-23-2013 influenza, seasonal, injectable [facility] 11-23-2013 influenza, seasonal, injectable, preservative free [facility] Work Phone: [facility] 11-30-2012 influenza virus vaccine, unspecified formulation Alyson Arthur MD Work Phone: [facility] 11-20-2012 pneumococcal polysaccharide vaccine, 23 valent Alyson Arthur MD Work Phone: [facility] 11-20-2012 Pneumococcal Vaccine [facility] Work Phone: 11-20-2012 pneumococcal vaccine , unspecified formulation [facility] 11-01-2010 pneumococcal polysaccharide vaccine, 23 valent Alyson Arthur MD Work Phone: [facility] Work Phone: Payers Date Payer Category Payer Self-pay [id number] 2023 Medicare (Managed Care) [employer] [id number] 2023 Medicare [id number] 2023 Medicare [id number] 2022 Medicare [id number] 2019 Medicaid [employer] [id number] 2019-Present [phone] [address] [place] [address] Medicaid [id number] 2019 Medicaid [id number] 2019 Unknown ANTHEM BLUE CROS S AND BLUE SHIELD ANTHEM MEDIBLUE HMO [id number] 2019-Present [phone] [address] [place] [address] HMO [id number] 2019 Unknown [id number] 2015 Medicaid [id number] 2015 Unknown [id number] 1961 Unknown [id number] 1961 Unknown [id number] 1961 Unknown [id number] 1961 Unknown [id number] Medicare [id number] Private Health Insurance [facility] [id number] Unknown [id number] Unknown [id number] Unknown [id number] Unknown [id number] Unknown [id number] Social History Date Type Detail Facility Start: 12-17-2010 End: 09-09-2024 Tobacco smoking status PAIS Smokes tobacco daily [facility] History of tobacco use Cigarette Smoker C [facility] Start: 12-17-2010 End: 06-17-2022 Cigarettes smoked current (pack per day) - Reported 0.75 [facility] Work Phone: Start: 12-17-2010 End: 09-09-2024 Tobacco use and exposure Smokeless tobacco non-user [facility] Start: 12-13-2020 End: 09-09-2024 Alcohol intake Current drinker of alcohol (finding) [facility] Start: 04-27-2020 History SDOH Alcohol Comment Rarely. 2 beers a year [facility] Start: 01-02-2019 End: 10-18-2021 Tobacco Comment less than a pack/day. [facility] Start: 1960 Sex Assigned At Not on file C [facility] Start: 03-16-2020 End: 10-22-2021 Exposure to SARS-CoV-2 (event) Not sure [facility] Start: 10-30-2020 End: 06-22-2023 Tobacco smoking status NHIS Unknown if ever smoked [facility] Start: 10-30-2020 None [facility] Start: 05-23-2020 With Family [facility] Start: 10-30-2020 Cigarettes [facility] Start: 1960 Sex Assigned At Male [facility] Start: 06-17-2022 End: 09-28-2022 Tobacco use panel [facility] Work Phone: Start: 01-15-2012 Adult Depression Screening Assessment 1 [facility] Work Phone: Start: 04-06-2023 Tobacco smoking status Never s moked tobacco (finding) [facility] Sex Assigned At Sex [facility] Start: 11-25-2011 Alcohol Comment Rarely. [facility] Medical Equipment Procedure Code Equipment Code Equipment Origin al Text Equipment Identifier Dates [id number], [id number], [id number], [id number], [id number], [id number], [id number], [id number], [id number], [id number] Start: 03-26-2020 End: 12-17-2024 Comment on above: TEST BLOOD SUGAR 1-2 TIMES DAILY Use one needle per d ose. 4per day. 4 Each once daily. Graft Hemashield Taft 28mm Straight Tube Woven 2 Velour Collagen 30cm - [id number] Start: 03-20-2023 Comment on above: Description: nonmeta llic [place] Thk1.65mm P tfe 4x.5in Cardiovascular Sterile - [id number] Start: 03-20-2023 Comment on above: Description: nonmeta llic [place] Thk1.65mm P tfe 4x.5in Cardiovascular Sterile - [id number] Start: 03-20-2023 Comment on above: Description: nonmeta llic Valve Aortic Epi c Plus Supra 27mm - [id number] Start: 03-20-2023 Goals Date Patient Goal Desired Activity /State Personal health goal Functional Status Date Assessment Result Facility 06-24-2023 Functional status Chair [facility] Work Phone: 05-20-2023 Functional Status None [facility] 05-20-2023 Functional Status Room check performed [facility] [place] 05-20-2023 Functional Status [facility] [place] 05-20-2023 Functional Status [facility]s)s [facility] [place] [facility] Functional Status [facility] [place] 05-19-2023 Functional Status [facility] Status [facility] 05-19-2023 Functional Status [facility] 05-18-2023 Functional Status Nurse Safety C madison q2hrs Performed 7am-7pm [facility] 05-18-2023 Functional Status [facility] 05-18-2023 Functional Status [facility] 05-17-2023 Functional Status [facility] 05-17-2023 Functional Status Antiembolism S tocking Off/Removed bilateral knee high [facility] 05-17-2023 Functional Status [facility] 05-17-2023 Functional Status [facility] 05-17-2023 Functional Status 30 1 [facility] 05-17-2023 Functional Status [facility] 05-16-2023 Functional Status [facility] 05-16-2023 Functional Status [facility] 05-15-2023 Functional Status Pt has 2 daugh ters, son and son in law, along c who can help upon d/c. [facility] 05-14-2023 Functional Status 100 [facility] 05-13-2023 Functional Status Repositions self [facility] [place] 05-12-2023 Functional Status Remains up [facility] [place] 05-11-2023 Functional Status [facility] [place] 05-10-2023 Functional Status [facility] 05-08-2023 Functional Status Skin Care Prod uct Applied Protective barrier, Skin moisturizer [facility] 05-08-[address] [facility] 05-07-2023 Functional Status Morning Snack Percent 1 00 [facility] [place] 05-05-[address] [facility] 05-03-2023 Functional Status Stair Railing Utilized Bilateral [facility] 05-03-[address] [facility] 05-01-2023 Functional Status Orthotics, Dev ice Worn Per Schedule Yes [facility] 05-01-2023 Functional Status Ambulation in Room [facility] 05-01-[address] [facility] 05-01-2023 Functional Status One assist [facility] 05-01-[address] [facility] 04-30-[address] [facility] 04-29-2023 Functional Status Sensory Deficits None [facility] [place] 04-27-2023 Functional Status Up to Chair Re paddy up in chair [facility] 04-27-2023 Functional Status Bed alert on, Room check performed [facility] 04-27-2023 Functional Status [facility] 04-27-2023 Functional Status [facility] 04-27-2023 Functional Status Positioning Re positioned back [facility] 04-27-2023 Functional Status [facility] 04-27-2023 Functional Status Two assist [facility] 04-27-2023 Functional Status bilateral knee high applied/on [facility] 04-27-2023 Functional Status [facility] 04-27-2023 Functional Status [facility] 04-26-2023 Functional Status [facility] 04-26-2023 Functional Status [facility] 04-26-2023 Functional Status Pt has 2 daugh ters, son and son in law, along c who can help upon d/c. [facility] 04-26-2023 Functional Status [facility] 04-26-2023 Functional Status Activity Bruce tance Two assist [facility] 04-25-2023 Functional Status [facility] 04-25-2023 Functional Status Dinner Percent 35 [facility] 04-25-2023 Functional Status [facility] 04-25-2023 Functional Status [facility] 04-25-2023 Functional Status Linen Change Done [facility] 04-24-2023 Functional Status Valid [place] Slip N/A [facility] 04-24-2023 Functional Status Refused [facility] 04-24-2023 Functional Status [facility] 04-23-2023 Functional Status [facility] 04-23-2023 Functional Status Transparent si licone dressing [facility] 04-23-2023 Functional Status Maintained [facility] 04-23-2023 Functional Status Room check performed [facility] 04-22-2023 Functional Status [facility] 04-22-2023 Functional Status Skin Care Prev entative Intervention(s) heel(s)s elevated [facility] 04-22-2023 Functional Status Nurse Safety C madison q2hrs Performed 7am-3pm [facility] 04-22-2023 Functional Status Lunch Percent 15 [facility] 04-22-2023 Functional Status Breakfast Percent 10 [facility] 04-22-2023 Functional Status [facility] 04-21-2023 Functional Status [facility] 04-21-2023 Functional Status Antiembolism S tocking Off/Removed bilateral knee high [facility] 04-20-2023 Functional Status [place] 04-20-2023 Functional Status [facility] [place] 04-20-2023 Functional Status [facility] [place] 04-19-2023 Functional Status [facility] [place] 04-19-2023 Functional Status [facility] [place] 04-19-2023 Functional Status [facility] [place] 04-19-2023 Functional Status 4 [facility] [place] 04-19-2023 Functional Status [facility] [place] 04-18-2023 Functional Status [facility] [place] 04-18-2023 Functional Status [facility] [place] 04-18-2023 Functional Status Pt has 2 dahéctor ters, son and son in law, along c who can help upon d/c. [facility] 04-17-2023 Functional Status [place] 04-17-2023 Functional Status [facility] 04-17-2023 Functional Status Activity Statu s ADL Awake, Lights dimmed, Up to bathroom, Watching TV, Other: sitting up in chair [facility] 04-16-[address] [facility] 04-15-2023 Functional Status Foam dressing [facility] 04-15-2023 Functional Status [facility] 04-13-2023 [facility] 04-12-2023 Functional Status Positioning Ot her: up in chair [facility] 04-11-2023 Functional Status [facility] 04-10-2023 Functional Status 1st floor bedr oom, 1st floor bathroom [facility] 04-08-2023 Functional Status [facility] 04-07-2023 Are you deaf, or do you have serious difficulty hearing No 04/07/2023 7:13 PM Priyanka Padilla RN No [facility] 04-07-2023 Are you blind, or do you have serious difficulty seeing, even when wearing glasses No 04/07/2023 7:13 PM Priyanka Padilla RN No [facility] 04-07-2023 Do you have serious difficulty walking or climbing stairs Yes 04/07/2023 7:13 PM Priyanka Padilla RN Yes [facility] 04-07-2023 Do you have difficul ty dressing or bathing Yes 04/07/2023 7:13 PM Priyanka Padilla RN Yes [facility] 04-07-2023 Because of a physica l, mental, or emotional condition, do you have difficulty doing errands alone such as visiting a physician's office or shopping Yes 04/07/2023 7:13 PM Priyanka Padilla RN Yes [facility] 10-11-2022 Functional status Ambulates;Chair [facility] Work Phone: Mental Status Date Assessment Result Facility 06-24-2023 Cognitive function Voice/Name [facility] Work Phone: 05-20-2023 Mental Status Oriented x 4 [facility] 05-20-2023 Mental Status [facility] 05-19-2023 Mental Status [facility] 05-19-2023 Mental Status [facility] 04-27-2023 Mental Status Orientation [facility]ed x [facility] 04-26-2023 Mental Status [facility] 04-26-2023 Mental Status [facility] 04-24-2023 Mental Status [facility] 04-22-2023 Mental Status Oriented x 4 [facility] 04-22-2023 Mental Status [facility] 04-21-2023 Mental Status [facility] 04-20-2023 Mental Status [facility] 04-07-2023 Because of a physica l, mental, or emotional condition, do you have serious difficulty concentrating, remembering, or making decisions Yes 04/07/2023 7:13 PM Priyanka Padilla RN Yes [facility] 10-11-2022 Cognitive function Voice/Name [facility] Work Phone: Clinical Notes 11-30-2012 to 12-04-2024 Carmen Leos - 10/03/2024 10:15 AM EDTTelephone Encounter - Opal Mccann RN - 09/27/2024 7:50 AM EDTTelephone Encounter - Opal Mccann RN - 09/27/2024 7:50 AM EDT Note Date & Type Note Facility 12-04-2024 Note HNO ID: [id number] Author: ?, ?, ? Service: ? Author Type: ? Type: Progress Notes Filed: 12/04/2024 10:35 Note Text: POPULATION HEALTH NAVIGATION OUTREACH Action/FYI Patient outreach for HCCs HM due; GAUDENCIO, Sanders, Flu, A1C, KED, AWV Spoke with patient. Pend labs. Will schedule wellness at visit next week. Sees [facility] eye doctor but will need to schedule since not been in for awhile. Will discuss Sanders with MANAGER COMMERCIAL if it needs to be since the FOB was done last year. Patient believes he had flu shot done at [facility] but it is not on the HM. Dr. Arthur, Please approve these orders for the patient to be completed prior to their appointment. Additionally, feel free to place any other orders you deem necessary. Thank you! Pended Orders ID Status Description Pended By When Reason [id number] Pended HEMOGLOBIN A1C Carmen Leos 12/04/24 1026 [id number] Pended ALBUMIN/CREATININE RATIO, URINE Carmen Leos 12/04/24 1026 Reason for Outreach Care Gap/HCC or Scheduling Wellness Visits Care Gaps due: Medicare Annual Wellness Visit Colorectal Cancer Screening Diabetic Eye Exam HBA1C KED Flu Vaccine Patient Contacted: Spoke to patient/parent/or legal guardian Patient identified by name and : Yes Care Gap/HCC/Scheduling Wellness actions taken: Patient scheduled/pended orders: HBA1C KED 12/09/2024 in [facility] with ANGELA SCHMID - 3 month follow up, hcc gaps due, hm due (40min per CH) 12/17/2024 in [facility] with AMANDA VALENTE - Overdue f/u. kh 05/06/2025 in [facility] with FRANKLIN ESPINAL - 6 month follow up 09/11/[address] [facility] with [facility] (I-STAT) - CT LUNG SCREENING 09/11/2025 in [facility] with AMAURI JO - [address] [place] [address] HCC related Updated Appointment Notes Navigation Signature: Carmen Granger December 04, 2024 10:16 AM [facility] 12-04-2024 Note Patient Outreach (DEJAN TNAV) JANKIKIEL GARCIA ([id number]) 1960 M Date Time Provider Department 12/04/24 ALYSON ARTHUR During your visit today, we recorded the following information about you: Carmen Leos 12/04/2024 10:35 AM Signed POPULATION HEALTH NAVIGATION OUTREACH Action/FYI Patient outreach for HCCs HM due; GAUDENCIO, Sanders, Flu, A1C, KED, AWV Spoke with patient. Pend labs. Will schedule wellness at visit next week. Sees [facility]SH eye doctor but will need to schedule since not been in for awhile. Will discuss Sanders with MANAGER [employer]ERCIAL if it needs to be since the FOB was done last year. Patient believes he had flu shot done at [facility] but it is not on the HM. Dr. Arthur, Please approve these orders for the patient to be completed prior to their appointment. Additionally, feel free to place any other orders you deem necessary. Thank you! Pended Orders ID Status Description Pended By When Reason [id number] Pended HEMOGLOBIN A1C Carmen Leos 12/04/24 1026 [id number] Pended ALBUMIN/CREATININE RATIO, URINE Carmen Leos 12/04/24 1026 Reason for Outreach Care Gap/HCC or Scheduling Wellness Visits Care Gaps due: Medicare Annual Wellness Visit Colorectal Cancer Screening Diabetic Eye Exam HBA1C KED Flu Vaccine Patient Contacted: Spoke to patient/parent/or legal guardian Patient identified by name and : Yes Care Gap/HCC/Scheduling Wellness actions taken: Patient scheduled/pended orders: HBA1C KED 12/09/2024 in [facility] with ANGELA SCHMID - 3 month follow up, hcc gaps due, hm due (40min per CH) 12/17/2024 in [facility] with AMANDA VALENTE - Overdue f/u. kh 05/06/2025 in [facility] with FRANKLIN ESPINAL - 6 month follow up 09/11/[address] [facility] (I-STAT) - CT LUNG SCREENING 09/11/2025 in [facility] with AMAURI JO - [facility] related Updated Appointment Notes Navigation Signature: Carmen [...] hyperglycemia, with long-term current use of insulin ([facility]) [E11.65, Z79.4] Order(s):HEMOGLOBIN A1C [[id number]] Order #: [id number] FUTURE ALBUMIN/CREATININE RATIO, URINE [SQUACR] Order #: [id number] FUTURE Prescriptions as of 12/04/2024 - XTAMPZA [...] a day. - flash glucose scanning reader (SkuServeSTYLE ANAHI 2 READER) DMII, insulin requiring. Testing [...] daily. - in (more content not included)... [facility] 11-13-2024 Note HNO ID: [id number] Author: MAKENZIE OGDEN RPh Service: ? Author [...] appropriate at that time. Makenzie Ogden RPh [facility] 11-13-2024 Note Patient Outreach (PH MEWO) KIEL CATHERINE ([id number]) 1960 M Date Time Provider Department 11/13/24 [...] a day. - flash glucose scanning reader (SkuServeSTYLE ANAHI 2 READER) DMII, insulin requiring. Testing [...] 10/23/2021 GERD wit (more content not included)... [facility] 11-05-2024 Note HNO ID: [id number] Author: FRANKLIN ESPINAL, DO Service: ? Author Type: Physician Type: Progress Notes Filed: 11/05/2024 15:24 Note Text: [facility] [place] DEPARTMENT OF VASCULAR SURGERY OUTPATIENT VISIT DATE November 05, 2024 OUTPATIENT VISIT TYPE CONSULTATION SERVICE DATE: 11/05/2024 SERVICE TIME: 1:42 PM PRIMARY CARE PHYSICIAN: Alyson Arthur MD REFERRING PROVIDER: Angela Schmid [address] [facility] [place] [address] Consult requested for an opinion regarding the [...] Diagnosis Date Acute ischemic left MCA stroke ([facility]) 03/22/2023 Anxiety Aortic valve stenosis, nonrheumatic Atrial septal defect and mitral stenosis ([facility]) Bicuspid aortic valve ([facility]) Bipolar 1 disorder ([facility]) Chronic obstructive pulmonary disease (COPD) ([facility]) Coronary artery disease Degenerative disc disease sees Dr. Sellers Diabetic neuropathy ([facility]) DM (diabetes mellitus) ([facility]) HTN (hypertension) Hyperkalemia Hyperlipidemia Hypogonadism male LVH (left ventricular hypertrophy) Morbid obesity ([facility]) MANISH on CPAP Pain management Dr. [...] Disease Brother other (Myocardial infarc) Brother Fatal [place] No Ocular Disease No Family History MEDICATIONS: [...] mg/20.3 mL mattie (more content not included)... [facility] 11-04-2024 Note HNO ID: [id number] Author: ?, ?, ? Service: ? Author [...] or unnecessary to reach patient: Left message Lenddo message sent HCC related Navigation Signature: Carmen Granger November 04, 2024 9:30 AM [facility] 11-04-2024 Note Patient Outreach (NE TNAV) KIEL CATHERINE ([id number]) 1960 Date Time Provider Department 11/04/24 ALYSON [...] or unnecessary to reach patient: Left message Lenddo message sent HCC related Navigation Signature: Carmen [...] Date Reviewed: 09/09/2024 Reviewed by: Amauri Jo APRN.NOODLE PRESS OPERATOR - Fully Assessed Reason for Visit: Population [...] Severe aortic st (more content not included)... [facility] 10-03-2024 Note HNO ID: [id number] Author: ?, ?, ? Service: ? Author [...] Carmen Granger October 03, 2024 10:15 AM [facility] 10-03-2024 History of Presen t illness Narrative [...] 2024 10:15 AM documented in this encounter [facility] 10-03-2024 Note Patient Outreach (NE TNBRENNAN) JANKIKIEL GARCIA ([id number]) 1960 M Date Time Provider Department 10/03/24 [...] or unnecessary to reach patient: Left message Cerest message sent HCC related Navigation Signature: Carmen [...] Date Reviewed: 09/09/2024 Reviewed by: Amauri Jo APRN.NOODLE PRESS OPERATOR - Fully Assessed Reason for Visit: Population [...] [I35.0] 08/10/2018 N (more content not included)... [facility] 09-27-2024 Telephone encounter Note Please call patient to schedule vascular testing prior to appt with Dr. Espinal He is scheduled 10/01/24 Thank you [facility] 09-27-2024 Miscellaneous Notes Please call patient to schedule vascular testing prior to appt with Dr. Espinal He is scheduled 10/01/24 Thank you documented in this encounter [facility] 09-13-2024 Telephone encounter Note The patient [...] Gallardo RN September 13, 2024 4:31 PM [facility] 09-13-2024 Miscellaneous Notes The patient has [...] 2024 4:31 PM documented in this encounter [facility] 09-11-2024 Telephone encounter Note LVM and scheduled overdue follow up for 12/17/24 at 3:[address] Valente in [place]. ThanksPhilippe [facility] 09-11-2024 Miscellaneous Notes LVM and scheduled overdue follow up for 12/17/24 at 3:[address] Valente in [place]. ThanksPhilippe Spouse, Shweta, contacted [facility] stating patient was received instructions from [facility] pullman car clerk, Amauri Jo CNP, to follow up with a software packager and possibly vascular specialist. Patient is wanting to continue cardiology care under Kathy Colbert CNP. Patient last saw Gemma 05/23/22. PSS notified patient that she is no longer at [facility] but would send a message seeing if she is willing to see him or if he needs to establish with an MD. Please contact spouse to advise ph. [phone] . documented in this encounter [facility] 09-10-2024 Telephone encounter Note Spouse, Shweta, contacted [facility] stating patient was received instructions from [facility] pullman car clerk, Amauri Jo CNP, to follow up with a software packager and possibly vascular specialist. Patient is wanting to continue cardiology care under Kathy Colbert CNP. Patient last saw Gemma 05/23/22. PSS notified patient that she is no longer at [facility] but would send a message seeing if she is willing to see him or if he needs to establish with an MD. Please contact spouse to advise ph. [phone] . [facility] 09-09-2024 Instructions Amauri Jo APRN.TODD - [...] nodule. This can be scheduled at the front desk clerk when you check out. We discussed your [...] You should have regular follow-ups with a software packager to monitor your heart health. - If you would like, the front desk clerk can assist you in scheduling an appointment with a software packager. We discussed your vascular health: - You mentioned a prior evaluation for peripheral vascular disease. If needed, the front desk clerk can help you reschedule with a vascular specialist. Next steps: - Schedule your follow-up CT scan for 12 months from now. - Consider scheduling appointments with a software packager and vascular specialist for ongoing care. - Let us know if you experience any new or worsening symptoms, such as shortness of breath, chest pain, or leg swelling. Please reach out if you have any questions or concerns. documented in this encounter [facility] 09-09-2024 Note HNO ID: [id number] Author: AMAURI JO APRN.CNP Service: ? Author Type: Nurse Practitioner Type: Progress Notes Filed: 09/09/2024 12:44 Note Text: [facility] Lung Cancer Screening Annual Visit Current [...] other counseling during this visit. Amauri Jo APRN.[facility] History of Present Illness: Kiel [...] has not had a follow-up with a software packager since the surgery due to a canceled appointment and difficulty scheduling. He denies dyspnea, hemoptysis, wheezing, or recent chest colds or infections. He reports occasional coughing, which he attributes to his smoking habit of approximately 3/4 pack per day. He notes that his breathing is not 100%, but considers it good for someone who smokes. He has not seen a pullman car clerk since his surgery. He mentions a previous [...] valve stenosis, no (more content not included)... [facility] 09-09-2024 History of Presen t illness Narrative [facility] Lung Cancer Screening Annual Visit Current [...] other counseling during this visit. Amauri Jo APRN.[facility] History of Present Illness: Kiel [...] has not had a follow-up with a software packager since the surgery due to a canceled appointment and difficulty scheduling. He denies dyspnea, hemoptysis, wheezing, or recent chest colds or infections. He reports occasional coughing, which he attributes to his smoking habit of approximately 3/4 pack per day. He notes that his breathing is not 100%, but considers it good for someone who smokes. He has not seen a pullman car clerk since his surgery. He mentions a previous [...] male LVH (left ventricular hypertrophy) Morbid obesity ([facility]) MANISH on CPAP Pain management Dr. Basali Family Hx: FAMILY HISTORY Problem Relation Age of Onset Diabetes Father 2011 with pneumonia other (Dementia) Father Heart Mother CABG 4. Diabetes Sister Ischemic Heart Disease Brother other (Myocardial infarc) Brother Fatal [place] No Ocular Disease No Family History Surgical [...] in 12 months. Other actionable findings: Reference: [employer]. Lung CT Screening Reporting and Data System (Lung-RADS). Available at: http://www.acr.org/Quality-Safet y/Resources/LungRADS Global Program Manager: TOMMY Transcribe Date/Time: Jul 14 2022 3:39P Dictated by : FAITH DANEILS MD This examination was interpreted and the report reviewed and electronically signed by: FAITH DANIELS MD on Jul 14 2022 4:34PM EST Results-Findings * * *Final Report* * * DATE OF EXAM: Jul 14 2022 2:03PM [facility] 0562 - CT LUNG SCREEN [facility] / PROCEDURE REASON: multiple diagnoses * * [...] without contrast. MQ: CTLCS_6 Patient characteristics: * Rsju-dl-Iaghz: 1960; Age at exam: 61 years * Gender: Male * Lung Disease: Asymptomatic (no signs or symptoms of lung disease) * Number of Pack Years: 45 * Current smoker (=0) or Number of Years since Quit: 0 * Ordering provider and NPI: AMAURI JO [id number] * Interpreting radiologist and NPI: Joaquina [id number] Exam acquisition parameters: * Exam Date: 07/14/2022 2:03 PM * Site: [facility] * * CT System Building Energy Consultant: Siemens * CT System Model: Sensation * [...] Left Anterior Descending Mild; Right Coronary None Senior Software Qa Engineer (topogram) images: No additional findings. No results found for this or any previous visit from the past 720 days. Pulmonary Function Testing: No textual results found for the specified procedure(s). Recording using ambient AI software for draft documentation of the visit was discussed with the patient/authorized outbound telemarketing representative; all questions welcomed and answered. Patient/authorized outbound telemarketing representative agreed to proceed Some of this note was generated using AI assistance and dictation software, which may result in errors in word translation, typographical mistakes, or grammatical inconsistencies that may not have been identified before finalization. Please consider this when reviewing the note. documented in this encounter [facility] 09-09-2024 History of Presen t illness [...] PATIENT PRESENTS WITH AN IMPLANTABLE OR ATTACHED AREA DIRECTOR: No RADIOLOGY DEPARTMENT: CT; Exam(s) Completed: Lung Screening PERIPHERAL IV DATA: Not applicable SIGNED BY: RT Felix(R) September 09, 2024 3:21 PM documented in this encounter [facility] 09-09-2024 Note HNO ID: [id number] Author: SANTI SEPULVEDA RT(Moreno) Service: ? Author Type: Protection Specialist Type: Progress Notes Filed: 09/09/2024 15:22 Note [...] PATIENT PRESENTS WITH AN IMPLANTABLE OR ATTACHED AREA DIRECTOR: No RADIOLOGY DEPARTMENT: CT; Exam(s) Completed: Lung Screening PERIPHERAL IV DATA: Not applicable SIGNED BY: RT Felix(R) September 09, 2024 3:21 PM [facility] 09-03-2024 Note HNO ID: [id number] Author: ?, ?, ? Service: ? Author [...] Carmen Granger September 03, 2024 10:25 AM [facility] 09-03-2024 History of Presen t illness Narrative POPULATION HEALTH NAVIGATION OUTREACH Action/FYI Patient outreach for HCCs Hm due; AWV, KED, GAUDENCIO, COLO LVM and sent myc to close gaps. Reason for Outreach Care Gap/HCC or Scheduling Wellness Visits Care Gaps due: Medicare Annual Wellness Visit Colorectal Cancer Screening Diabetic Eye Exam KED Patient Contacted: Unable or unnecessary to reach patient: Left message [employer] Resources[employer] message sent HCC related Updated appointment notes Navigation Signature: Carmen Granger September 03, 2024 10:25 AM documented in this encounter [facility] 09-03-2024 Note Patient Outreach (NE TNAV) KIEL CATHERINE ([id number]) 1960 M Date Time Provider Department 09/03/24 [...] or unnecessary to reach patient: Left message [employer] message sent HCC related Updated appointment notes [...] aortic stenosis [I (more content not included)... [facility] 08-22-2024 Telephone encounter Note Prescription Refill Information [...] Bacaing Bárbara August 22, 2024 3:45 PM [facility] 08-22-2024 Miscellaneous Notes Prescription Refill Information [...] 2024 3:45 PM documented in this encounter [facility] 08-19-2024 Telephone encounter Note The patient [...] Cohn LPN August 19, 2024 11:22 AM [facility] 08-19-2024 Miscellaneous Notes The patient has [...] 2024 11:22 AM documented in this encounter [facility] 08-13-2024 Telephone encounter Note Pt notified of results/provider instructions. He verbalized understanding. Bebeto Haro LPN [facility] 08-13-2024 Telephone encounter Note Pt notified. He verbalized understanding. Bebeto Haro LPN [facility] 08-13-2024 Miscellaneous Notes Pt notified of [...] adjust. Everything else looks okay. Angela Schmid APRN.NOODLE PRESS OPERATOR documented in this encounter [facility] 08-13-2024 Miscellaneous Notes Pt notified. He [...] changed to formulary? documented in this encounter [facility] 08-13-2024 Telephone encounter Note That is fine. New script sent. Can please let patient know. Angela Schmid APRN.TODD [facility] 08-13-2024 Telephone encounter Note Covermymeds PA rec'd for ciprofloxacin-dexAMETHasone (CIPRODEX) 0.3-0.1 % otic suspension Called the pharmacy and they report that this is not formulary. They report pts insurance would covered cortisporin otic suspension. Can this be changed to formulary? [facility] 08-13-2024 Telephone encounter Note LM to return call to office. Bebeto Haro LPN [facility] 08-12-2024 Telephone encounter Note Can please let patient know that I received his labs. His A1C improved to 8.1 (previously 10.3). It is still higher than we like. Lets increase his lantus to 22 units in the evening. Please send me in some sugars next week so we can see if we need to further adjust. Everything else looks okay. Angela Schmid APRN.NOODLE PRESS OPERATOR [facility] 08-07-2024 Note HNO ID: [id number] Author: ANGELA SCHMID APRN.TODD Service: ? Author [...] feet. 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 Ear Discomfort: - Reports feeling of swelling [...] Bicuspid aortic valve (HCC) Bipolar 1 disorder ([facility]) Chronic obstructive pulmonary disease (COPD) ([facility]) Coronary artery disease Degenerative disc disease sees Dr. Sellers Diabetic neuropathy ([facility]) DM (diabetes mellitus) ([facility]) HTN (hypertension) Hyperkalemia Hyperlipidemia Hypogonadism male LVH (left ventricular hypertrophy) Morbid obesity ([facility]) MANISH on CPAP Pain management Dr. [...] directed with meals (more content not included)... [facility] 08-07-2024 History of Presen t illness Narrative [...] feet. 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 Ear Discomfort: - Reports feeling of swelling [...] Diagnosis Date Acute ischemic left MCA stroke ([facility]) 03/22/2023 Anxiety Aortic valve stenosis, nonrheumatic Atrial septal defect and mitral stenosis ([facility]) Bicuspid aortic valve ([facility]) Bipolar 1 disorder ([facility]) Chronic obstructive pulmonary disease (COPD) ([facility]) Coronary artery disease Degenerative disc disease sees Dr. Sellers Diabetic neuropathy ([facility]) DM (diabetes mellitus) ([facility]) HTN (hypertension) Hyperkalemia Hyperlipidemia Hypogonadism male LVH (left ventricular hypertrophy) Morbid obesity ([facility]) MANISH on CPAP Pain management Dr. [...] Disease Brother other (Myocardial infarc) Brother Fatal [place] No Ocular Disease No Family History Social [...] as needed for worsening/no improvement. Angela Schmid APRN.NOODLE PRESS OPERATOR Recording using [employer] software for draft documentation of the visit was discussed with the patient/authorized outbound telemarketing representative; all questions welcomed and answered. Patient/authorized outbound telemarketing representative agreed to proceed Ambulatory Ear Lavage Pre-treatment: No pre-treatment Treatment: Left ear Equipment and Irrigation solution and Volume used: Single use syringe with single use irrigation tip Water Total Irrigation Volume: 200ml Return flow appearance: Clear Other large chunk of debri Patient tolerated procedure: yes Tympanic membrane assessment: Tympanic membrane assessed by LIP pre and post procedure documented in this encounter [facility] 08-07-2024 Note HNO ID: [id number] Author: BEBETO HARO LPN Service: ? Author [...] assessed by LIP pre and post procedure [facility] 08-07-2024 Instructions Angela Schmid APRN.NOODLE PRESS OPERATOR - 08/07/2024 11:25 AM EDT Start the ear drops. Get the labwork. Schedule ultrasound of the neck and legs. Schedule w/ Dr. Espinal. (Vascular). Recheck in 3 months. documented in this encounter [facility] 08-02-2024 Note HNO ID: [id number] Author: ?, ?, ? Service: ? Author [...] or unnecessary to reach patient: Left message Cerest message sent HCC related Updated appointment notes Navigation Signature: Carmen Granger August 02, 2024 9:23 AM [facility] 08-02-2024 History of Presen t illness Narrative [...] 2024 9:23 AM documented in this encounter [facility] 08-02-2024 Note Patient Outreach (DEJAN TNAV) KIEL CATHERINE ([id number]) 1960 M Date Time Provider Department 08/02/24 [...] or unnecessary to reach patient: Left message [employer] message sent HCC related Updated appointment notes [...] Date Reviewed: 02/08/2024 Reviewed by: Margi Riddle APRN.NOODLE PRESS OPERATOR - Fully Assessed Reason for Visit: Population [...] LVH (left ventricular (more content not included)... [facility] 07-03-2024 Note HNO ID: [id number] Author: ?, ?, ? Service: ? Author [...] Mckeon Pss July 03, 2024 10:35 AM [facility] 07-03-2024 Note Patient Outreach (NE TNAV) JANKIKIEL GARCIA ([id number]) 1960 M Date Time Provider Department 07/03/24 [...] HCC related Updated appointment notes Navigation Signature: Carmne Granger July 03, 2024 10:35 AM Allergies [...] Date Reviewed: 02/08/2024 Reviewed by: Margi Riddle APRN.NOODLE PRESS OPERATOR - Fully Assessed Reason for Visit: Population [...] (left ventricular h (more content not included)... [facility] 06-21-2024 Telephone encounter Note The following approved medication requests have been transmitted electronically. Requested Prescriptions Signed Prescriptions Disp Refills traZODone (DESYREL) 50 mg tablet 30 tablet 2 Sig: Take 1 tablet by mouth daily at bedtime. Authorizing Provider: MARGI RIDDLE pregabalin (LYRICA) 100 mg capsule 90 capsule 0 Sig: Take 1 capsule by mouth once daily for 90 days. Authorizing Provider: MARGI RIDDLE APRN.NOODLE PRESS OPERATOR [facility] 06-21-2024 Miscellaneous Notes The following approved [...] Janki Vale RN documented in this encounter [facility] 06-21-2024 Telephone encounter Note The patient [...] daily for 90 days. Janki Vale RN [facility] 06-21-2024 Radiology Diagnostic study note [facility] [address], [place] [id number] Knee 1 or 2 Views MR#: [id number] Acct: [id number] Name: KIEL CATHERINE Rep #: [id number] : 1960 M 63 From: Stefano Quintanilla MD PCP: Dr. Alyson Arthur MD Status: REG C AMAYA Study:Knee 1 or 2 Views Date of Exam: Exam# [id number] Ordering Dr: Lily Sellers MD PROCEDURE: KNEE [...] seen within the right knee. Reading Location: [facility] CC: Dr. Walter Sellers MD; Dr. Alyson Arthur MD ~ Global Program Manager: Signed [facility] 06-21-2024 Radiology Diagnostic study note [facility] [address], [place] [address] Knee 1 or 2 Views MR#: [id number] Acct: [id number] Name: KIEL CATHERINE Rep #: [id number] : 1960 M 63 From: Stefano Quintanilla MD PCP: Dr. Alyson Arthur MD Status: REG Nathen CONDE Study:Knee 1 or 2 Views Date of Exam: Exam# [id number] Ordering Dr: Lily Sellers MD PROCEDURE: KNEE [...] Sellers MD; Dr. Alyson Arthur MD ~ Global Program Manager: Signed [facility] 06-03-2024 Note HNO ID: [id number] Author: ?, ?, ? Service: ? Author [...] Linda Pss June 03, 2024 1:24 PM [facility] 06-03-2024 History of Presen t illness Narrative [...] 2024 1:24 PM documented in this encounter [facility] 06-03-2024 Note Patient Outreach (DEJAN TNAV) KIEL CATHERINE ([id number]) 1960 M Date Time Provider Department 06/03/24 [...] Date Reviewed: 02/08/2024 Reviewed by: Margi Riddle APRN.NOODLE PRESS OPERATOR - Fully Assessed Reason for Visit: Population [...] 90 days. - flash glucose scanning reader (SkuServeSTYLE ANAHI 2 READER) DMII, insulin requiring. Testing [...] 11/09/2012 DDD (d (more content not included)... [facility] 05-21-2024 History of Presen t illness Narrative [...] Serrano PharmD, GREGG documented in this encounter [facility] 05-21-2024 Note HNO ID: [id number] Author: MARLINE SERRANO RPh Service: ? Author [...] types. Thank you, Marline Serrano PharmD, BASILIOCP [facility] 05-21-2024 Note Patient Outreach (PM STOW) KIEL CATHERINE ([id number]) 1960 Date Time Provider Department 05/21/24 MARLINE [...] Date Reviewed: 02/08/2024 Reviewed by: Margi Riddle APRN.NOODLE PRESS OPERATOR - Fully Assessed Reason for Visit: Care Coordination [7221] Cmt: Referred to Pharmacy for Diabetes Management Primary Visit Diagnosis:Type 2 diabetes mellitus with hyperglycemia, with long-term current use of insulin ([facility]) [E11.65, Z79.4] Order(s):CONSULT TO PHARMACY [438945] Order #: [id number]: 1 Prescriptions as of 05/21/2024 - ammonium [...] 90 days. - flash glucose scanning reader (SkuServeSTYLE ANAHI 2 READER) DMII, insulin requiring. Testing [...] Hypertension [I10] 10/15 (more content not included)... [facility] 05-14-2024 Telephone encounter Note Prescription Refill Information [...] Mel Land May 14, 2024 4:29 PM [facility] 05-14-2024 Miscellaneous Notes Prescription Refill Information [...] 2024 4:29 PM documented in this encounter [facility] 05-03-2024 Note HNO ID: [id number] Author: ?, ?, ? Service: ? Author [...] Contacted: Unable or unnecessary to reach patient: Lenddo message sent HCC related Navigation Signature: Carmen Granger May 03, 2024 8:34 AM [facility] 05-03-2024 History of Presen t illness Narrative [...] Contacted: Unable or unnecessary to reach patient: Lenddo message sent HCC related Navigation Signature: Carmen Granger May 03, 2024 8:34 AM documented in this encounter [facility] 05-03-2024 Note Patient Outreach (DEJAN TNAV) KIEL CATHERINE ([id number]) 1960 M Date Time Provider Department 05/03/24 [...] Contacted: Unable or unnecessary to reach patient: Lenddo message sent HCC related Navigation Signature: Carmen [...] Date Reviewed: 02/08/2024 Reviewed by: Margi Riddle APRN.NOODLE PRESS OPERATOR - Fully Assessed Reason for Visit: Population [...] 90 days. - flash glucose scanning reader (SkuServeSTYLE ANAHI 2 READER) DMII, insulin requiring. Testing [...] DDD (degenerative d (more content not included)... [facility] 05-01-2024 Telephone encounter Note The patient has [...] Gallardo RN May 01, 2024 9:57 AM [facility] 05-01-2024 Miscellaneous Notes The patient has [...] 2024 9:57 AM documented in this encounter [facility] 04-03-2024 Note HNO ID: [id number] Author: DENNYS VÁSQUEZ MA Service: ? Author Type: Cattle Broker Type: Progress Notes Filed: 04/03/2024 14:26 Note [...] to reach patient: Unable to leave message Lenddo message sent HCC related Navigation Signature: Dennys Vásquez MA April 03, 2024 2:23 PM [facility] 04-03-2024 History of Presen t illness Narrative [...] to reach patient: Unable to leave message Lenddo message sent HCC related Navigation Signature: Dennys Vásquez MA April 03, 2024 2:23 PM documented in this encounter [facility] 04-03-2024 Note Patient Outreach (DEJAN ADHIKARI) JANKIKIEL GARCIA ([id number]) 1960 M Date Time Provider Department 04/03/24 DENNYS VÁSQUEZ During your visit today, we recorded [...] to reach patient: Unable to leave message Lenddo message sent HCC related Navigation Signature: Dennys [...] Date Reviewed: 02/08/2024 Reviewed by: Margi Riddle APRN.NOODLE PRESS OPERATOR - Fully Assessed Reason for Visit: Population [...] 90 days. - flash glucose scanning reader (SkuServeSTYLE ANAHI 2 READER) DMII, insulin requiring. Testing [...] with diabet*11/09/2012 Hype (more content not included)... [facility] 03-28-2024 Telephone encounter Note The following approved [...] daily for 90 days. Margi Riddle APRN.CNP [facility] 03-28-2024 Miscellaneous Notes The following approved [...] Janki Vale RN documented in this encounter [facility] 03-28-2024 Telephone encounter Note The patient [...] daily for 90 days. Janki Vale RN [facility] 03-04-2024 Telephone encounter Note Kiel is calling Alyson Arthur MD today with concern regarding Medication Request Calling in today states that he needs a new one [facility] the [facility] [place]. flash glucose scanning reader (FREESTYLE ANAHI 2 READER) Patient has been identified by name and birthdate. Duration of symptoms: N/A Person calling: spouse: Gissell Call patient at: at home and on cell [phone] (home) [phone] (cell) Was an appointment scheduled: No Closing statement: Results or non-symptom based questions: Thank you for calling [facility], your call will be returned within the next business day. Rae Granger [facility] 03-04-2024 Miscellaneous Notes Kiel is calling Alyson Arthur MD today with concern regarding Medication Request Calling in today states that he needs a new one of the following sent to [facility] in [place]. flash glucose scanning reader (FREESTYLE ANAHI 2 READER) Patient has been identified by name and birthdate. Duration of symptoms: N/A Person calling: spouse: Gissell Call patient at: at home and on cell [phone] (home) [phone] (cell) Was an appointment scheduled: No Closing statement: Results or non-symptom based questions: Thank you for calling [facility], your call will be returned within the next business day. Rae Granger documented in this encounter [facility] 03-04-2024 Note HNO ID: [id number] Author: ESTELLE URIARTE MA Service: ? Author Type: Cattle Broker Type: Progress Notes Filed: 03/04/2024 09:34 Note Text: POPULATION HEALTH NAVIGATION OUTREACH Action/I Care gaps due: AWV 6m fu July 2024 Sanders (FOBT ordered) DIABETIC RETINAL EXAM Spoke to [...] Uriarte MA March 04, 2024 9:33 AM [facility] 03-04-2024 History of Presen t illness Narrative POPULATION HEALTH NAVIGATION OUTREACH Action/FYI Care gaps due: AWV 6m fu July 2024 Sanders (FOBT ordered) DIABETIC RETINAL EXAM Spoke to [...] 2024 9:33 AM documented in this encounter [facility] 03-04-2024 Note Patient Outreach (NE TNAV) KIEL CATHERINE ([id number]) 1960 M Date Time Provider Department 03/04/24 ESTELLE URIARTE During your visit today, we recorded the following information about you: Estelle Uriarte MA 03/04/2024 9:34 AM Signed POPULATION HEALTH NAVIGATION OUTREACH Action/FYI Care gaps due: AWV 6m fu July 2024 Sanders (FOBT ordered) DIABETIC RETINAL EXAM Spoke to [...] Date Reviewed: 02/08/2024 Reviewed by: Margi Riddle APRN.NOODLE PRESS OPERATOR - Fully Assessed Reason for Visit: Population [...] with diabet*11/09/2012 Hyperlipidemia (more content not included)... [facility] 02-16-2024 Telephone encounter Note Faxed as requested. [facility] 02-16-2024 Miscellaneous Notes Faxed as requested. Done [facility] sends fax requesting order for Quad cane. After printed fax face to face chart notes and order ATTN: Anastacio Shafer [phone]. documented in this encounter [facility] 02-15-2024 Telephone encounter Note Done [facility] 02-15-2024 Telephone encounter Note [facility] [place] sends fax requesting order for Quad cane. After printed fax face to face chart notes and order ATTN: Anastacio Shafer [phone]. [facility] 02-08-2024 Instructions Margi Riddle APRN.CNP - 02/08/2024 12:10 PM EST 1) covid vaccine 2) flu vaccine 3) labs today 4) Stop furosemide, continue bumetanide (Bumex) 5) Increase Lantus (glargine) to 20 units daily 6) Cipro 2 x day for 10 days 7) Stool card to check for blood 8) follow up in 6 months- may be virtual documented in this encounter [facility] 02-08-2024 Note HNO ID: [id number] Author: MARGI RIDDLE APRN.CNP Service: ? Author [...] Staff Physician (Cardiology) Angela Schmid APRN.CNP as School Cafeteria Cook (Family Medicine) Margi Riddle APRN.CNP as School Cafeteria Cook (Family Medicine) Concerns today: Getting up frequently [...] Comment: Mild Cad (C priority) Comment: 11/29/22 [facility]: The LMT is normal. The LAD [...] Ability - 03/24/2023 Comment: Insulin Dose Changed ([facility]) - 03/24/2023 Type 2 Diabetes Mellitus With Hyperglycemia, With Long-Term Current Use of Insulin ([facility]) - 03/24/2023 Comment: Hemoglobin A1C (%) Date Value 02/27/2023 6.5 06/24/2020 9.6 Dysphagia - 03/22/2023 Comment: MBS on 03/28/23 Followed by Speech therapy: see coord note Arterial Ischemic Stroke, Mca (Middle Cerebral Artery), Left, Acute ([facility]) - 03/22/2023 Comment: see coord note Open Wound of Left Great Toe - 03/22/2023 Comment: scab unknown etiology Alteration in Skin Integrity Due to Moisture - 03/22/2023 Comment: lower abdominal skin fold, right breast skin fold Skin Tear of Upper Extremity - 03/22/2023 Comment: left ear Pressure Injury of Sacral Region, Unstageable ([facility]) - 03/22/2023 Comment: coccyx Discharge Planning Issues - 03/16/2023 Comment: Patient is a 62 year old male from [place], [place]. PMANDR following for acute rehab needs Chronic Diastolic Heart Failure ([facility]) - 03/16/2023 Comment: Grade I DD on preop echo History of Disease - 02/21/2023 Class 3 Severe Obesity With Body Mass Index (Bmi) of 50.0 to 59.9 in Adult ([facility]) - 02/21/2023 Comment: Right Flank Pain - 02/21/2023 Peripheral Vascula (more content not included)... [facility] 02-08-2024 History of Presen t illness Narrative [...] Staff Physician (Cardiology) Angela Schmid APRN.CNP as School Cafeteria Cook (Family Medicine) Margi Riddle APRN.CNP as School Cafeteria Cook (Family Medicine) Concerns today: Getting up frequently [...] has mild diffuse disease. Dilatation of Aorta ([facility]) (C priority) Comment: 03/16/23 TTE: The visualized aorta is dilated with a maximal dimension of 4.4 cm. Postoperative Pain (D priority) Comment: see coord note hx chronic back pain Hypernatremia - 03/25/2023 (F priority) Hypervolemia - 03/21/2023 (F priority) On Tube Feeding Diet - 04/06/2023 Slurred Speech - 04/05/2023 Right Hemiparesis ([facility]) - 04/05/2023 Cognitive Communication Deficit - 04/04/2023 Pressure Injury of Coccygeal Region, Unstageable ([facility]) - 04/03/2023 Comment: Primary Sleep Apnea of [place] - 03/28/2023 Nicotine use disorder, F17.2 - 03/27/2023 Comment: Dysarthria - 03/27/2023 Comment: Impaired Gait and Mobility - 03/24/2023 Right Arm Weakness - 03/24/2023 Coordination Impairment - 03/24/2023 Comment: Alteration in Self-Care Ability - 03/24/2023 Comment: Insulin Dose Changed ([facility]) - 03/24/2023 Type 2 Diabetes Mellitus With Hyperglycemia, With Long-Term Current Use of Insulin ([facility]) - 03/24/2023 Comment: Hemoglobin A1C (%) Date Value 02/27/2023 6.5 06/24/2020 9.6 Dysphagia - 03/22/2023 Comment: MBS on 03/28/23 Followed by Speech therapy: see coord note Arterial Ischemic Stroke, Mca (Middle Cerebral Artery), Left, Acute ([facility]) - 03/22/2023 Comment: see coord note Open Wound of Left Great Toe - 03/22/2023 Comment: scab unknown etiology Alteration in Skin Integrity Due to Moisture - 03/22/2023 Comment: lower abdominal skin fold, right breast skin fold Skin Tear of Upper Extremity - 03/22/2023 Comment: left ear Pressure Injury of Sacral Region, Unstageable (Formerly [facility]) - 03/22/2023 Comment: coccyx Discharge Planning Issues - 03/16/2023 Comment: Patient is a 62 year old male from [place], [place]. PM&R following for acute rehab needs Chronic Diastolic Heart Failure (Formerly [facility]) - 03/16/2023 Comment: Grade I DD on preop echo History of Disease - 02/21/2023 Class 3 Severe Obesity With Body Mass Index (Bmi) of 50.0 to 59.9 in Adult (Formerly [facility]) - 02/21/2023 Comment: Right Flank Pain - 02/21/2023 Peripheral Vascular Disease (Formerly [facility]) - 12/06/2022 Comment: 12/22/22 [...] Normal at rest. Chronic Obstructive Pulmonary Disease (Formerly [facility]) - 10/11/2022 Comment: 11-17-2022 [...] Hypogonadism Male - 01/04/2013 Chronic Bronchitis, Simple ([facility]ly [facility]) - 12/07/2012 Lvh (Left [...] Neuropathy, With Long-Term Current Use of Insulin ([facility]ly [facility]) - 11/09/2012 Comment: Hyperlipidemia [...] Disease), Lumbar - 11/09/2012 Bipolar 1 Disorder ([facility]) - 11/09/2012 Comment: No home medications Morbid Obesity With Bmi of 50.0-59.9, Adult ([facility]) - 11/09/2012 Comment: History: [...] Diagnosis Date Acute ischemic left MCA stroke ([facility]) 03/22/2023 Anxiety Aortic valve stenosis, nonrheumatic Atrial septal defect and mitral stenosis Bicuspid aortic valve Bipolar 1 disorder ([facility]) Chronic obstructive pulmonary disease (COPD) ([facility]) Coronary artery disease Degenerative disc disease sees Dr. Sellers Diabetic neuropathy ([facility]) DM (diabetes mellitus) ([facility]) HTN (hypertension) Hyperkalemia Hyperlipidemia Hypogonadism male LVH (left ventricular hypertrophy) Morbid obesity ([facility]) MANISH on CPAP Pain management Dr. [...] [id number], TRIVALENT (AFLURIA, FLULAVAL, FLUVIRIN, FLUZONE) - [employer] COVID-19 VACCINE AGE 12+ YR ([facility]) 3. Screening for depression - ICD9: V79.0, ICD10: Z13.31 Stable - DEPRESSION SCREENING 4. Encounter for screening examination for other mental health and behavioral disorders - ICD9: V79.8, ICD10: Z13.39 Stable - ANXIETY SCREENING 5. Chronic obstructive pulmonary disease, unspecified COPD type (HCC) - ICD9: 496, ICD10: J44.9 Stable - [id number] - COMPLETE BLOOD COUNT AND DIFFERENTIAL - [...] Plans: 6 months documented in this encounter [facility] 01-29-2024 Telephone encounter Note Called and spoke with both pt and his Roberta. Rock states they need to reschedule both of their appts. Edwar from tomorrow to 02/07. [facility] 01-29-2024 Miscellaneous Notes Called and spoke [...] completed. Please advise documented in this encounter [facility] 01-29-2024 Telephone encounter Note No. They need to F2F, both need labs done.? [facility] 01-29-2024 Telephone encounter Note Patient Shweta [...] is going to be completed. Please advise [facility] 01-09-2024 Telephone encounter Note Kenzie with [...] on current med list. Yoly Murray LPN [facility] 01-09-2024 Miscellaneous Notes Kenzie with [facility] [...] Yoly Murray LPN documented in this encounter [facility] 01-01-2024 Telephone encounter Note Completed form faxed [facility] 01-01-2024 Miscellaneous Notes Completed form faxed Yes form is in office. [facility] calling to let provider know they faxed CMN for incontinence supplies. Asking if form received? Tia Arenas, RN documented in this encounter [facility] 12-28-2023 Telephone encounter Note An order is requested for a hospital bed from [facility]. Patient would need to schedule and keep an appointment to discuss in order to have the correct documentation. [facility] 12-28-2023 Miscellaneous Notes An order is requested for a hospital bed from [facility]. Patient would need to schedule and keep an appointment to discuss in order to have the correct documentation. documented in this encounter [facility] 12-28-2023 Telephone encounter Note Yes form is in office. [facility] 12-28-2023 Telephone encounter Note [facility] calling to let provider know they faxed CMN for incontinence supplies. Asking if form received? Tia Arenas RN [facility] 12-22-2023 Telephone encounter Note Sending RX for the 5 th time. Even printed and faxed. ??? [facility] 12-22-2023 Miscellaneous Notes Sending RX for [...] rewrite this, it never printed Order re-written. [facility] calling asking to have Novalog rx more clarification. Asking if the patient is only using the 4 units three times daily or in addition to sliding scale amount. Or just 4 units three times daily. Needing maximum amount of Novalog patient can use in a day on the rx. Please advise Done and resent Aria with [facility] called and they received the prescription for Novolog flexpen. Aria reports they need more information. Need to have a per day and max amount so they can fill and bill. July Perez LPN documented in this encounter [facility] 12-22-2023 Telephone encounter Note Patient's calls and states that pharmacy has not received prescription yet. Looks like it was printed previously. Can we resend prescription to pharmacy? Please review and advise, Apple Allen RN [facility] 12-21-2023 Telephone encounter Note sliding scale as directed with meals Blood sugar 0-150, no coverage; 151- 200, 2 units; 201- 250 4 units; 251- 300 6 units 301- 350 8 units, > 351 10 units [facility] 12-21-2023 Telephone encounter Note Can you rewrite this, it never printed [facility] 12-19-2023 Telephone encounter Note Order re-written. [facility] 12-19-2023 Telephone encounter Note [facility] calling asking to have Novalog rx more clarification. Asking if the patient is only using the 4 units three times daily or in addition to sliding scale amount. Or just 4 units three times daily. Needing maximum amount of Novalog patient can use in a day on the rx. Please advise [facility] 12-19-2023 Telephone encounter Note Done and resent [facility] 12-19-2023 Telephone encounter Note Aria with [facility] called and they received the prescription for Novolog flexpen. [facility] reports they need more information. Need to have a per day and max amount so they can fill and bill. July Perez LPN [facility] 12-18-2023 Telephone encounter Note Patient's made aware of new prescriptions sent to pharmacy [facility] 12-18-2023 Miscellaneous Notes Patient's made aware of new prescriptions sent to pharmacy Please let pt. Know that I ordered Lantus pens and novolog pens for his sliding scale. Note that insurance may not cover Lantus pens because it is once a day and that pens are for convenience with being out and about. Lorie from [facility] returned call. States she only sees patient on monthly basis and last visit was 11/15. She states whatever her med list for patient is isn't necessarily what he's currently taking as it could have changed. Med list from Lorie: Lantus 12 units qhs Novolog flex pens sliding scale TID (50 units for q 50/200) Allison Omalley MA [facility] to see if they have a better [...] the morning. Would need to call the [phone] phone her phone is . He uses [facility] for his pharmacy. Aware PCP is out [...] med updates in system never filled. Called [facility] and they have not dispensed Novolog since 2021. Advised received rx for humalog with sliding scale QID on 12/06/23 and gave to patient. They have never given Humalog prior. Verified that last LANTUS was fill May 2023 for 90 days and would only last till August. [facility] is not sure if rx are being filled at another pharmacy? I advised we have been sending to [facility] but family could transfer out. Spoke to and she advised spouse insulin comes from [facility] and hers from [facility]. said that she takes Novolog and thought [...] please send rx for Novolog Flexpens to [facility]. Bebeto Haro LPN documented in this encounter [facility] 12-18-2023 Telephone encounter Note Please let pt. Know that I ordered Lantus pens and novolog pens for his sliding scale. Note that insurance may not cover Lantus pens because it is once a day and that pens are for convenience with being out and about. [facility] Work Phone: 12-18-2023 Telephone encounter Note Lorie from [facility] returned call. States she only sees patient on monthly basis and last visit was 11/15. She states whatever her med list for patient is isn't necessarily what he's currently taking as it could have changed. Med list from Lorie: Lantus 12 units qhs Novolog flex pens sliding scale TID (50 units for q 50/200) Allison Omalley MA [facility] 12-15-2023 Telephone encounter Note Called [facility] to see if they have a better answer as what he is taking. Lorie will call back. Elma Guthrie MA December 18, 2023 10:03 AM [facility] 12-15-2023 Telephone encounter Note This makes no [...] He has been using them since May? [facility] 12-15-2023 Telephone encounter Note Patient shweta returned call and said had gotten Novolog insulin in Vials. He does not have syringes, he uses pens. Right now he does not have any more Novolog pens for sliding scale. He has Lantus pens which he uses 18 units in the morning. Would need to call the [phone] phone her phone is . He uses [facility] for his pharmacy. Aware PCP is out of office. [facility] 12-13-2023 Telephone encounter Note If no response from patient today, recheck with them what insulins he is actually using. [facility] 12-12-2023 Telephone encounter Note Noted. Will keep open. [facility] 12-12-2023 Telephone encounter Note Reviewing notes Novolog was discontinued on 04/07/23 by hospital provider and advised not to restart. Since than we have never refilled rx for Novolog and looks like all humalog rx were just med updates in system never filled. Called [facility] and they have not dispensed Novolog since 2021. Advised received rx for humalog with sliding scale QID on 12/06/23 and gave to patient. They have never given Humalog prior. Verified that last LANTUS was fill May 2023 for 90 days and would only last till August. [facility] is not sure if rx are being filled at another pharmacy? I advised we have been sending to [facility] but family could transfer out. Spoke to and she advised spouse insulin comes from [facility] and hers from [facility]. said that she takes Novolog and thought he was taking it as well. will have daughter call in with what all insulin is in fridge but I assume must me spouse rx. Daughter will call in to verify what sliding scale that patient has been doing. Laurel Adan MA [facility] 12-12-2023 Telephone encounter Note Can we clarify with pharmacy what he has been receiving. The last novolog pen script we had filled was written in 2021 and discontinued in our chart in 04/08. I am confused [facility] 12-12-2023 Telephone encounter Note See scanned POC reports. Pt has Novolog Flexpen listed on current med list. Bebeto Haro LPN [facility] 12-12-2023 Telephone encounter Note Pt calls office [...] please send rx for Novolog Flexpens to [facility]. Bebeto Haro LPN [facility] 12-07-2023 Telephone encounter Note [facility] asking pcp to send new Rx's for the insulin glargine and lispro. They cannot dispense 10.8 ml on the glargine- they have to dispense 15 ml. They cannot dispense 5 ml on the lispro- the least amount they can dispense is 10 ml. Changed Rx's to reflect this. Please send new Rx's to [facility]. [facility] 12-07-2023 Miscellaneous Notes [facility] asking pcp to send new Rx's for the insulin glargine and lispro. They cannot dispense 10.8 ml on the glargine- they have to dispense 15 ml. They cannot dispense 5 ml on the lispro- the least amount they can dispense is 10 ml. Changed Rx's to reflect this. Please send new Rx's to [facility]. documented in this encounter [facility] 12-06-2023 Telephone encounter Note Talked to [...] for daughter to come home to schedule. [facility] 12-06-2023 Miscellaneous Notes Talked to and [...] update. Thank you. documented in this encounter [facility] 12-06-2023 Telephone encounter Note Verify max of his sliding scale insulin he uses in a day for rx [facility] 12-06-2023 Telephone encounter Note Pharmacy calling [...] for. Call patient with update. Thank you. [facility] 11-21-2023 Telephone encounter Note returned call and given provider's message below with verbalized understanding. agreeable and states she will call back to schedule appt. [facility] 11-21-2023 Miscellaneous Notes returned call and [...] it was checked. documented in this encounter [facility] 11-21-2023 Telephone encounter Note Called and left a voicemail for the Patient to call back and ask for a nurse to receive the providers message. Tony Palma RN [facility] 11-21-2023 Telephone encounter Note Increase glargine to 18 units. Needs appt and labs. [facility] Work Phone: 11-20-2023 Telephone encounter Note [...] may have eaten before it was checked. [facility] 11-10-2023 Telephone encounter Note The patient [...] Gallardo RN November 10, 2023 3:31 PM [facility] 11-10-2023 Miscellaneous Notes The patient has [...] 2023 3:31 PM documented in this encounter [facility] 11-07-2023 Telephone encounter Note Phoned and spoke to shweta and went over notes from Dr Arthur with understanding. Shweta said she would need to call back to schedule appt when here daughter that is their transportation is there with her. Advised he was to have had appt a while ago, needs done soon. [facility] 11-07-2023 Miscellaneous Notes Phoned and spoke [...] Marley Bradley LPN documented in this encounter [facility] 11-07-2023 Telephone encounter Note Increase glargine insulin to 18 units insulin and call sugars in one week. See last note, was supposed to make appt to be seen [facility] 11-07-2023 Telephone encounter Note Spouse Shweta calling with pt's AM fasting blood sugar readings: 11/03/23 284 11/04/23 241 11/05/23 376 11/06/23 191 11/07/23 281 Verified with that pt is glargine insulin 14 units daily & humalog per sliding scal\e. Marley Bradley LPN [facility] 11-02-2023 Telephone encounter Note Pt notified and voiced understanding. Josefina Andujar MA [facility] 11-02-2023 Miscellaneous Notes Pt notified and [...] regarding patient. Pt had ER visit at [facility] 10/18/23 for pneumonia. He was ordered an [...] replies. Thank you. documented in this encounter [facility] 10-30-2023 Telephone encounter Note Message left for pt to call back for results. Josefina Andujar MA [facility] 10-30-2023 Telephone encounter Note Change glargine to 14 units a day. Call bring call sugars in two days. [facility] 10-30-2023 Telephone encounter Note Glargine is 12 units once daily as listed. Appt time adjusted so patient can come to office for visit. [facility] 10-30-2023 Telephone encounter Note Verify how much glargine. Would prefer he be seen in person given the pneumonia. [facility] 10-30-2023 Telephone encounter Note Patient's spouse Shweta calling regarding patient. Pt had ER visit at [facility] 10/18/23 for pneumonia. He was ordered an [...] call Shweta back with replies. Thank you. [facility] 10-27-2023 History of Presen t illness Narrative POP[facility] HEALTH NAVIGATION OUTREACH Action/FYI 1st attempt Summary: ED utilization review per request of payer [facility] MIGUELITO RN Patient identified by name and date of . Reason for review or outreach: Chart Review [facility] Priority Emergency Department Utilization REQUESTED ACTION/FYI: Please see ED Utilization summary below: A follow-up appointment is not noted in patient's record. We are forwarding this patient to [employer] [facility] to schedule a [facility] 10/18/23 PCP follow-up appointment. Thank you VM left for a return call Due for ER follow up Postponed 2 days Reason for Outreach Community Monitoring/Network Navigator Pools & Phone Line: [facility] Patient Contacted: Unable or unnecessary to reach patient: Left message Navigation Signature: Apple Valadez MA October 27, 2023 11:27 AM Summary: ED utilization review per request of payer [facility] MIGUELITO RN Patient identified by name and date of . Reason for review or outreach: Chart Review [facility] Emergency Department Utilization REQUESTED ACTION/FYI: Please see ED Utilization summary below: A follow-up appointment is not noted in patient's record. We are forwarding this patient to [facility] to schedule a [facility] 10/18/23 PCP follow-up appointment. Thank you Cardiology F/U 12/11/23 Exclusion Criteria - Does not meet exclusion criteria ED DIAGNOSES/REASON(S) FOR ED USE: [facility] 10/18/23 Fatigue, elevated blood sugars OTHER FINDINGS/SUMMARY: Unable to find [facility] ED plan notes in Care everywhere Patient Attributed To: ANNIKA Payer: Eladio FITCH Action Taken: Referrals/Routed: Population Health Navigation: Appointment. Router to [employer] PSS POOL [[phone]] Contact made with patient: No, Chart review only. Signature: Mallika GR,RN,[facility] Civil Engineering Teacher Management Contract RN [phone] documented in this encounter [facility] 10-25-2023 Telephone encounter Note Prescription Refill [...] Ya Granger October 25, 2023 1:48 PM [facility] 10-25-2023 Miscellaneous Notes Prescription Refill Information [...] 2023 1:48 PM documented in this encounter [facility] 10-19-2023 Telephone encounter Note The patient [...] two times a day. Janki Vale RN [facility] 10-19-2023 Miscellaneous Notes The patient has [...] Janki Vale RN documented in this encounter [facility] 10-18-2023 Telephone encounter Note Advised patients Shweta that patient needs to go to the ER as advised now and previously. She verbalized understanding. Allison Omalley MA [facility] 10-18-2023 Miscellaneous Notes Advised patients Shweta [...] Patient was previously advised on 10/05/2023 by library acquisitions technician doctor that if patient has symptoms of [...] Apple Allen RN documented in this encounter [facility] 10-18-2023 Telephone encounter Note If sleepy etc and sugars are high, something else may be going on. Concur with previous message. Once stable, we need to see him either virtually or in person. [facility] 10-18-2023 Telephone encounter Note Patient's Shweta calls and is concerned because patient still is having high sugars in the 300s. Patient was previously advised on 10/05/2023 by library acquisitions technician doctor that if patient has symptoms of [...] Please review and advise, Apple Allen RN [facility] 10-09-2023 Telephone encounter Note Prescription Refill [...] Rae Granger October 09, 2023 12:05 PM [facility] 10-09-2023 Miscellaneous Notes Prescription Refill Information [...] 2023 12:05 PM documented in this encounter [facility] 10-05-2023 Telephone encounter Note Patient's notified of provider recommendations below. voices understanding. Apple Allen RN [facility] 10-05-2023 Miscellaneous Notes Patient's notified of [...] be addressed by PCP team or my MANAGER COMMERCIAL. How is patient feeling this morning? What [...] fine. Please advise. documented in this encounter [facility] 10-05-2023 Telephone encounter Note With symptoms of fatigue and high sugars above 300 would recommend evaluation in the ER for DKA or other infections that may be causing high sugars. Again, it looks like his diabetes was well controlled on his last A1c, so this seems unusual for him. [facility] Work Phone: 10-05-2023 Telephone encounter Note [...] now. Shweta voices understanding. Apple Allen RN [facility] 10-05-2023 Telephone encounter Note Can we try reaching out to this patient again. If he is not responding I may need to call for well check on him. [facility] 10-05-2023 Telephone encounter Note TC patient, left message for patient to call back and speak with a triage nurse regarding symptoms. Apple Allen RN [facility] 10-05-2023 Telephone encounter Note See Telephone Encounter T [facility] 10-05-2023 Miscellaneous Notes See Telephone Encounter documented in this encounter [facility] 10-05-2023 Telephone encounter Note Patient added to triage nurse call back schedule for this morning to discuss current condition and to be advised on provider's plan of care. [facility] 10-05-2023 Telephone encounter Note I am not sure why I was not paged for this yesterday if it was not able to be addressed by PCP team or my MANAGER COMMERCIAL. How is patient feeling this morning? What are his sugar readings now? Last A1c was in normal range at 6.5, so readings in the 500's would be very concerning for DKA. If he is having symptoms of continued fatigue, nausea/vomiting, abdominal pain, confusion, SOB would recommend ER evaluation now. [facility] 10-04-2023 Telephone encounter Note Patient calling, states that his BS last night was 505 before bed. He had taken all medication as prescribed. This morning it was 272 fasting. Today as the day has gone on his Anahi is just reading high but not giving a number. He is feeling tired but otherwise feels fine. Please advise. [facility] 09-25-2023 Telephone encounter Note Faxed to [employer] as requested. Notified Shweta. [facility] 09-25-2023 Miscellaneous Notes Faxed to [employer] [...] that office contact their daughter Gissell at [phone] and leave message if Gissell does not [...] a call back. documented in this encounter [facility] 09-25-2023 Telephone encounter Note printed [facility] 09-25-2023 Telephone encounter Note Pt's calling back to let pcp know that [employer] will cover adult briefs(Depends). Pt needs X-large size. Please fax order to [employer]. Please contact pt's Shweta when order has been faxed. If office gets her vm she does not know how to use it and requests that office contact their daughter Gissell at [phone] and leave message if Gsisell does not answer. Samy Keith LPN [facility] 09-25-2023 Telephone encounter Note Attempted to contact pt with no answer. Left voicemail to return call with the information from insurance. Contacted Shweta and she states she has not checked with insurance yet but will do it today and return the call with that information. [facility] 09-22-2023 Telephone encounter Note Pt's Shweta [...] them and give us a call back. [facility] 09-19-2023 Telephone encounter Note Everything faxed. Allison Omalley MA [facility] 09-19-2023 Miscellaneous Notes Everything faxed. Allison Omalley MA printed Fax received from [facility] requesting a quad can and tub transfer bench. They ask that the orders be faxed to Anastacio Shafer at [phone] with any relevant chart notes. Fax placed on provider's desk. Elma Guthrie MA September 19, 2023 1:16 PM documented in this encounter [facility] 09-19-2023 Telephone encounter Note printed [facility] 09-19-2023 Telephone encounter Note Fax received from [facility] requesting a quad can and tub transfer bench. They ask that the orders be faxed to Anastacio Shafer at [phone] with any relevant chart notes. Fax placed on provider's desk. Elma Guthrie MA September 19, 2023 1:16 PM [facility] 08-07-2023 Telephone encounter Note The patient [...] Allen RN August 07, 2023 10:52 AM [facility] 08-07-2023 Miscellaneous Notes The patient has [...] 2023 10:52 AM documented in this encounter [facility] 07-25-2023 Telephone encounter Note Prescription Refill [...] Allen RN July 25, 2023 1:28 PM [facility] 07-25-2023 Miscellaneous Notes Prescription Refill Information [...] 2023 1:28 PM documented in this encounter [facility] 07-21-2023 Telephone encounter Note ALANA Elizalde with [facility] calls to notify provider that patient is now on the waiver program. Joan Gallardo RN [facility] 07-21-2023 Miscellaneous Notes ALANA Elizalde with [facility] calls to notify provider that patient is now on the waiver program. Joan Gallardo RN documented in this encounter [facility] 07-19-2023 Telephone encounter Note Marley called from [facility] and to report that patient was discharged for OT and Home Health Services today. [facility] 07-19-2023 Miscellaneous Notes Marley called from [facility] and to report that patient was discharged for OT and Home Health Services today. Reuben PT- [facility]- reports he discharged patient today from PT. Reports patient has reached a plateu- and does not show interest in doing things for himself as he has family members who do everything for him. Patient is not motivated to do things for himself although he is able to. documented in this encounter [facility] 07-17-2023 Telephone encounter Note Reuben PT- [facility]- reports he discharged patient today from PT. Reports patient has reached a plateu- and does not show interest in doing things for himself as he has family members who do everything for him. Patient is not motivated to do things for himself although he is able to. [facility] 07-13-2023 Telephone encounter Note July OT with [facility] called and is notified of providers message. She voices understanding. Tony Palma RN [facility] 07-13-2023 Miscellaneous Notes July OT with [facility] called and is notified of providers message. She voices understanding. Tony Palma RN ok July OT with [facility] she states they were supposed to reassess Pt today, but Pt missed visit as he was having too much back pain. She is asking for a verbal order to see the Pt next week for reassessment. documented in this encounter [facility] 07-13-2023 Telephone encounter Note ok [facility] 07-13-2023 Telephone encounter Note July OT with [facility] she states they were supposed to reassess Pt today, but Pt missed visit as he was having too much back pain. She is asking for a verbal order to see the Pt next week for reassessment. [facility] 07-05-2023 Angela Thao APRN.NOODLE PRESS OPERATOR - 07/05/2023 1:48 PM EDT Set up with GI. To ER with any recurrence of symptoms. documented in this encounter [facility] 07-05-2023 History of Presen t illness Narrative This is a 62 year old male who presents today with: Patient presents with: Transition Of Care HISTORY OF PRESENT ILLNESS: Kiel Catherine is a 62 year old male. Patient presents with: Transition Of Care Patient presents today for hospital follow-up. He was admitted to [facility] on 06/21/2023. He presented to the [...] stenosis Bicuspid aortic valve Bipolar 1 disorder ([facility]) Chronic obstructive pulmonary disease (COPD) ([facility]) Coronary artery disease Degenerative disc disease sees Dr. Sellers Diabetic neuropathy ([facility]) DM (diabetes mellitus) ([facility]) HTN (hypertension) Hyperkalemia Hyperlipidemia Hypogonadism male LVH (left ventricular hypertrophy) Morbid obesity ([facility]) MANISH on CPAP Pain management Dr. [...] Disease Brother other (Myocardial infarc) Brother Fatal [place] No Ocular Disease No Family History Social [...] as needed for worsening/no improvement. Angela Schmid APRN.NOODLE PRESS OPERATOR documented in this encounter [facility] 07-03-2023 Instructions Laurel Pierce DO - 07/03/2023 10:53 AM EDT Images from the original note were not included. Regarding your visit at the [facility] we discussed the following: [...] diabetes with primary care provider with terminal operator goals as above Counseled patient on signs [...] or TIA who have evidence of atherosclerosis. jail goal LDL is less than 70 in most stroke patients. Diet - Limit carbohydrates, saturated and trans fats, sodium, sweets, and red meat - Consume fruits, vegetables, whole grains, low-fat dairy products, skinless poultry, nuts and legumes - Consider the DASH (Dietary Approaches to Stop Hypertension) diet (if you have hypertension) or the Mediterranean diet - more information: https://www.heart.org/en/healthy -living/healthy-eating/eat-smart /nutrition-basics/agb-gulb-vci-l ifestyle-recommendations Smoking and Tobacco Use (including e-cigarettes) [...] may be considered documented in this encounter [facility] 07-03-2023 History of Presen t illness Narrative [facility] Established Visit Consultation is requested by: No referring provider defined for this encounter. PCP: Alyson Arthur [address] [place] [address] CEREBROVASCULAR HISTORY Kiel Catherine is a 62 [...] to follow up closer to home in [place]. Does not want any additional follow up here given distance PAST MEDICAL HISTORY Diagnosis Date Acute ischemic left MCA stroke (HCC) 03/22/2023 Anxiety Aortic valve stenosis, nonrheumatic Atrial septal defect and mitral stenosis Bicuspid aortic valve Bipolar 1 disorder (HCC) Chronic obstructive pulmonary disease (COPD) (HCC) Coronary artery disease Degenerative disc disease sees Dr. Sellers Diabetic neuropathy ([facility]) DM (diabetes mellitus) ([facility]) HTN (hypertension) Hyperkalemia Hyperlipidemia Hypogonadism male LVH (left ventricular hypertrophy) Morbid obesity ([facility]) MANISH on CPAP Pain management Dr. [...] Disease Brother other (Myocardial infarc) Brother Fatal [place] No Ocular Disease No Family History Social [...] wants to do this through cardiology in [place] Continue therapies at home for stroke recovery Lifestyle modification -Recommend mediterranean diet -Regular exercise Management of hypertension, hyperlipidemia, and diabetes with primary care provider with terminal operator goals as above Counseled patient on signs and symptoms of stroke if develops them in the future, seek medical attention immediately by calling I spent a total of 60 minutes on the date of service which included preparing to see the patient, hbgb-qk-[id number] patient care, completing clinical documentation, obtaining and/or [...] DO Vascular Neurology [facility] Alyson Arthur [address] [place] [address] documented in this encounter [facility] 06-29-2023 Telephone encounter Note Agree with PT recommendations [facility] Work Phone: 06-29-2023 Miscellaneous Notes Agree with PT recommendations CARLTON Moses @ [facility] calling with plan of care. Physical Therapy will see patient 1 x/week for three weeks for mobility and balance. If agree, no call back needed. Tia Arenas RN documented in this encounter [facility] 06-29-2023 Telephone encounter Note CARLTON Moses @ [facility] calling with plan of care. Physical Therapy will see patient 1 x/week for three weeks for mobility and balance. If agree, no call back needed. Tia Arenas RN [facility] 06-28-2023 Telephone encounter Note Phoned Marley and left detailed message with verbal order from Dr Arthur on her voicemail. [facility] 06-28-2023 Miscellaneous Notes Phoned Marley and left detailed message with verbal order from Dr Arthur on her voicemail. ok Marley from [facility] calling asking for verbal order for 2 additional OT visits working with right upper extremity. Please advise documented in this encounter [facility] 06-28-2023 Telephone encounter Note ok [facility] 06-28-2023 Telephone encounter Note Marley from [facility] calling asking for verbal order for 2 additional OT visits working with right upper extremity. Please advise [facility] 06-27-2023 History of Presen t illness Narrative Thoracic and Cardiovascular Surgery [facility] CARDIOTHORACIC CLINIC NOTE CHART COPY DO NOT DISCARD Patient Type: Established Visit to determine Surgery: No PCP: Alyson Arthur [address] [place] [address] Referring Physician:: Elma Meeks [address] [facility] [address] Mr. Kiel Catherine returns to clinic today [...] Shlomo Alcocer MD documented in this encounter [facility] 06-27-2023 History of Presen t illness [...] PATIENT PRESENTS WITH AN IMPLANTABLE OR ATTACHED AREA DIRECTOR: No RADIOLOGY DEPARTMENT: CT; Exam(s) Completed: CTA Chest PERIPHERAL IV DATA: Site assessment: Clean,Dry and Intact, Site disposition Discontinued SIGNED BY: RT Dionne(R) June 27, 2023 12:45 PM documented in this encounter [facility] 06-26-2023 Telephone encounter Note Left detailed message on identifiable voicemail. [facility] 06-26-2023 Miscellaneous Notes Left detailed message [...] Apple Allen RN. documented in this encounter [facility] 06-26-2023 Telephone encounter Note Patient has scheduled CTA for tomorrow. Dr. Alcocer office was notified by CTA department that the patient did not have premedication ordered. Called local [facility] with Prednisone prescription using the messaging system. Called to let paitent know that this was called in. Rubén Carter RN [facility] 06-26-2023 Miscellaneous Notes Patient has scheduled CTA for tomorrow. Dr. Alcocer office was notified by CTA department that the patient did not have premedication ordered. Called local [facility] with Prednisone prescription using the messaging system. Called to let paitent know that this was called in. Rubén Carter RN documented in this encounter [facility] 06-26-2023 Telephone encounter Note Rx sent for smaller amount. Attempt to wean down. If continues to need, needs to get back into pain management. [facility] 06-26-2023 Telephone encounter Note Patient was released yesterday per his . Appointment scheduled for Hospital follow up. Scheduled with Angela. [facility] 06-26-2023 Telephone encounter Note Is he still in the hospital? If so, will hold on refilling. [facility] 06-26-2023 Telephone encounter Note Patient has [...] Please advise. Thank you. Apple Allen RN. [facility] 06-24-2023 Discharge summary Note Date/Time June 24, 2023 1:03p [facility] Medical Records Department [address] [place] [address] Discharge Summary 06/24/23 1300 MR#: [id number] Acct: [id number] Name: KIEL CATHERINE Rep #:[id number] : 1960 62 From: Trip Fraire DO PCP: Dr. Alyson Arthur MD Status:ADM I N Location: [place] [address] Providers Date of Admission: 06/22/23 Primary Care [...] and aortic valve replacement * Performed at [facility] 03/2023. Recent left MCA stroke * Residual [...] mg tablet 37.5 mg PO Q12H 06/22/23 xorgxtxm-qf-zafpl 300 mcg-K 60 mcg-lycop 600 mcg-lutein 300 [...] % (Auto) 61.5, Lymph % (Auto) 24.7, Story % (Auto) 11.6 H, Eos % (Auto) [...] DAILY PRN (Reason: constipation) Centrum Silver Men [id number] mcg tablet 1 tab PO DAILY Referrals / Follow Up: Alyson Arthur MD [Primary Care Provider] - Within 2 Weeks Disposition Disposition (needs filled in before D/C Order can be placed): Home, Self Care Charges/Coding Visit Charges Inpatient E&M: 75110 Disch Hosp 06/24/23 1307 <Electronically signed by Trip Fraire DO> Cosigner Signature (if applicable): CC: Dr. Trip Fraire DO; Dr. Alyson Arthur MD~ Signed [facility] Work Phone: 1(946) 768-452705-11-2024 Progress note Author Trip Fraire [facility] June 24, 2023 11:34am Note Date/Time June 24, 2023 7:56a m [facility] Medical Records Department [address] [facility] [place] [address] Progress Note - Hospitalist 06/24/23 0756 MR#: [id number] Acct: [id number] Name: KIEL CATHERINE Rep #:[id number] : 1960 62 From: Trip Fraire DO PCP: Dr. Alyson Arthur MD Status:ADM I N Location: [place] [address] Reason for Visit Reason for Visit: Diagnoses [...] and aortic valve replacement * Performed at [facility] 03/2023. Recent left MCA stroke * Residual [...] disposition: TBD Charges/Coding Visit Charges Inpatient E&M: 24789 Subs Hosp L2 06/24/23 1134 <Electronically signed by Trip Fraire DO> Cosigner Signature (if applicable): CC: ~ Signed [facility] Work Phone: 1(724) 841-972805-11-2024 Progress note Author Kiel Chacon [facility] June 24, 2023 11:09am Note Date/Time June 24, 2023 10:04 am [facility] Medical Records Department [address] [place] [address] Progress Note - Surgery 06/24/23 1003 MR#: [id number] Acct: [id number] Name: JANKIALONSOKIEL Godoy Rep #:[id number] : 1960 62 From: Kiel Tony PCP: Dr. Alyson Arthur MD Status:ADM I N Location: [place] [address] Subjective Subjective Patient seen and examined during [...] % (Auto) 61.5, Lymph % (Auto) 24.7, Story % (Auto) 11.6 H, Eos % (Auto) [...] 8:06 EDT Reading Location ID and State: [facility] / [place] Tel , Service support , Physical Exam [...] Chacon MD General Surgery Endocrine Surgery Pager: [facility] [address] [place] [address], [address] [place] [address] Office: [phone] 06/24/23 1101 <Electronically signed by Kiel Chacon MD> Cosigner Signature (if applicable): CC: ~ Signed [facility] Work Phone: 1(198) 497-409405-10-2024 Progress note Author Trip Fraire [facility] June 23, 2023 3:30pm Note Date/Time June 23, 2023 8:45a m [facility] Medical Records Department [address] [place] [address] Progress Note - Hospitalist 06/23/23 0836 MR#: [id number] Acct: [id number] Name: KIEL CATHERINE Rep #:[id number] : 1960 62 From: Trip Fraire DO PCP: Dr. Alyson Arthur MD Status:ADM I N Location: [place] [address] Reason for Visit Reason for Visit: Diagnoses [...] (Auto) 77.0 H, Lymph % (Auto) 12.5 L,Story % (Auto) 9.6, Eos % (Auto) 0.1, [...] Clarity Clear, Urine pH 5.0, Ur Specific [place] 1.025, Urine Protein 30 H, Urine Glucose [...] proximal to mid stomach. Electronically Signed: Angel Flroes MD at 18:37 EDT , KUB X-Ray [...] and aortic valve replacement * Performed at [facility] 03/2023. Recent left MCA stroke * Residual [...] disposition: TBD Charges/Coding Visit Charges Inpatient E&M: 99350 Subs Hosp L2 06/23/23 1530 <Electronically signed by Trip Fraire DO> Cosigner Signature (if applicable): CC: ~ Signed [facility] Work Phone: 1(898) 797-755305-10-2024 Progress note Author Raj Stevenson [facility] June 23, 2023 8:32am Note Date/Time June 23, 2023 8:33a m [facility] Medical Records Department [address] [place] [address] Progress Note - Surgery 06/23/2332 MR#: [id number] Acct: [id number] Name: KIEL CATHERINE Rep #:[id number] : 1960 62 From: Raj márquez MD PCP: Dr. Alyson Arthur MD Status:ADM I N Location: [place] [address] Subjective Subjective Patient reports he is feeling [...] (Auto) 77.0 H, Lymph % (Auto) 12.5 L,Story % (Auto) 9.6, Eos % (Auto) 0.1, [...] Clarity Clear, Urine pH 5.0, Ur Specific [place] 1.025, Urine Protein 30 H, Urine Glucose [...] him surgical options. Raj Stevenson MD Pager: [facility] [address] [place] [address], [address] [place] [address] Office: 06/23/23 0832 <Electronically signed by Raj Stevenson MD> Cosigner Signature (if applicable): CC: ~ Signed [facility] Work Phone: 1(798) 964-811705-10-2024 History and physical note Author Patrick Sharma [facility] June 23, 2023 12:25am Note Date/Time June 22, 2023 4:28pm [facility] Medical Records Department [address] [place] [address] H&P Exam - Hospitalist 06/22/23 1628 MR#: [id number] Acct: [id number] Name: KIEL CATHERINE Rep #:[id number] : 1960 62 From: Patrick melo DO PCP: Dr. Alyson Arthur MD Status:ADM I N Location: [place] [address] HPI - General General Date of Admission: 06/22/23 Date of Service: 06/22/23 Chief Complaint: Abdominal pain HPI Narrative KIEL CATHERINE, is a 62 M who presented to [facility] ED on 06/22/2023 with worsening abdominal [...] medical history; [facility]. Most recently the patient underwent an openascending aortic aneurysm repair with aortic valve replacement at the [facility] in March. Unfortunately that procedure was [...] noted above. Will admit for further management. [facility] Medical History Anxiety Asthma Atherosclerotic heart disease of rincon coronary artery without angina pectoris Atrial septal [...] PO Q12H 06/22/23 [History Last Taken 06/22/23] uekfryxb-ed-leogu 300 mcg-K 60 mcg-lycop 600 mcg-lutein 300 [...] (Auto) 77.0 H, Lymph % (Auto) 12.5 L,Story % (Auto) 9.6, Eos % (Auto) 0.1, [...] Clarity Clear, Urine pH 5.0, Ur Specific [place] 1.025, Urine Protein 30 H, Urine Glucose [...] Patient is a 62-year-old male who presented [facility] ED on 06/22/2023 with abdominal pain. [...] valve replacement ? Surgery done at the [facility] in March 2023. Repeat echo recently [...] 55 minutes. Charges/Coding Visit Charges Inpatient E&M: 97406 Init Hosp L2 06/23/23 0025 <Electronically signed by Patrick Sharma DO> Cosigner Signature (if applicable): CC: Dr. Patrick Sharma DO; Dr. Alyson Arthur MD~ Signed [facility] Work Phone: 1(380) 614-181005-09-2024 Discharge summary Author Carmen Matthews [facility] June 22, 2023 4:58pm Note Date/Time June 22, 2023 2:23pm [facility] Medical Records Department [address] [place] [address] Emergency Department Summary 06/22/23 MR#: [id number] Acct: [id number] Name: KIEL CATHERINE Rep #:[id number] : 1960 62 From: Carmen Matthews [...] toresolve and then recurred again last evening. [facility] Medical History Anxiety Asthma Atherosclerotic heart disease of rincon coronary artery without angina pectoris Atrial septal [...] 77.0 H Lymph % (Auto) 12.5 L Story % (Auto) 9.6 Eos % (Auto) 0.1 [...] Clarity Clear Urine pH 5.0 Ur Specific [place] 1.025 Urine Protein 30 H Urine Glucose [...] Provider] - Disposition Disposition: Acute Care Hospital [facility] What to do if you have Problems For any increased pain, shortness of breath, bleeding, nausea or vomiting, chestpain, or any unexpected problems, contact your Primary Care Provider. Call [facility] ([phone]) or report to the closest Emergency Room. Call 911 if necessary. 06/22/23 1658 <Electronically signed by Carmen Matthews MD> Cosigner Signature (if applicable): CC: Dr. Alyson Arthur MD ~ Signed [facility] Work Phone: 1(590) 957-415505-09-2024 Consult note Author Raj Stevenson [facility] June 22, 2023 4:32pm Note Date/Time June 22, 2023 4:32pm [facility] Medical Records Department [address] [place] [address] Consultation - Surgical 06/22/23 1625 MR#: [id number] Acct: [id number] Name: KIEL CATHERINE Rep #:[id number] : 1960 62 From: Raj márquez [...] his blood thinners. Raj Stevenson MD Pager: [facility] [address] [place] [address] [facility] [address] [place] [address] Office: HPI Consult Data Date of Consult: 06/22/23 HPI Narrative HPI Narrative: KIEL CATHERINE, is a 62 M who presents with nausea and vomiting. The patient has a complicated medical history. He also is a poor historian. Patient says that he had bicuspid valve replacement in March [facility]. He says hehad a CVA during the surgery. He says that he developed a bowel obstruction after the surgery. He has had 2 other bowel obstructions treated at [facility]. He says they were treated nonoperatively. The patient reports no previous abdominal surgeries. He says his mid upper abdomen is painful. He says he had a bowel movement yesterday and feels like he has to have another 1. He denies acute pain and says that it comes and goes. [facility] Medical History Anxiety Asthma Atherosclerotic heart disease of rincon coronary artery without angina pectoris Atrial septal [...] (Auto) 77.0 H, Lymph % (Auto) 12.5 L,Story % (Auto) 9.6, Eos % (Auto) 0.1, [...] Clarity Clear, Urine pH 5.0, Ur Specific [place] 1.025, Urine Protein 30 H, Urine Glucose [...] MD at 15:35 EDT , ADDENDUM: 06/22/23 4580 IMPRESSION: Small bowel obstruction with question of early ischemic change. N.B. : The above Results were Read Back by Ronan Awna MD to Carmen Matthews MD, and understanding confirmed on 06/22/2023 15:37:25 (ET). Electronically Signed: Ronan Awan MD at 15:35 EDT Reading Location ID and State: [facility] / [place] Tel , Service support , 06/22/23 1632 <Electronically signed by Raj Stevenson MD> Cosigner Signature (if applicable): CC: Dr. Alyson Arthur MD~ Signed [facility] Work Phone: 1(474) 986-819405-09-2024 Discharge summary Author Carmen Matthews [facility] June 22, 2023 4:58pm Note Date/Time June 22, 2023 2:23pm [facility] Medical Records Department [address] [place] [address] Emergency Department Summary 06/22/23 MR#: [id number] Acct: [id number] Name: KIEL CATHERINE Rep #:[id number] : 1960 62 From: Carmen Matthews [...] toresolve and then recurred again last evening. [facility] Medical History Anxiety Asthma Atherosclerotic heart disease of rincon coronary artery without angina pectoris Atrial septal [...] 77.0 H Lymph % (Auto) 12.5 L Story % (Auto) 9.6 Eos % (Auto) 0.1 [...] Clarity Clear Urine pH 5.0 Ur Specific [place] 1.025 Urine Protein 30 H Urine Glucose [...] Provider] - Disposition Disposition: Acute Care Hospital [facility] What to do if you have Problems For any increased pain, shortness of breath, bleeding, nausea or vomiting, chestpain, or any unexpected problems, contact your Primary Care Provider. Call [facility] ([phone]) or report to the closest Emergency Room. Call 911 if necessary. 06/22/23 4688 <Electronically signed by Carmen Matthews MD> Cosigner Signature (if applicable): CC: Dr. Alyson Arthur MD ~ Signed [facility] Work Phone: [phone]) 669-804905-09-2024 Telephone encounter Note* Telephone Encounter - Alyson Arthur MD - 06/22/2023 1:40 PM EDT agree [facility]05-09-2024 Miscellaneous Notes* Telephone Encounter - Alyson Arthur MD - 06/22/2023 1:40 PM EDT agree * Telephone Encounter - Apple Allen RN - 06/22/2023 1:19 PM EDT Prakash from [facility] calls to report that patient is [...] thinking. Apple Allen RN [facility] Tele[facility] encounter Note * Telephone Encounter - Apple Allen RN - 06/22/2023 1:19 PM EDT Prakash from [facility] calls to report that patient is [...] what she was thinking. Apple Allen RN [facility]04-29-2024 Telephone encounter Note* Telephone Encounter - Aminah Escudero LPN - 06/12/2023 4:34 PM EDT Called and spoke with Shweta. States that still with abd pain and nausea. Still has diarrhea at times. Constipation is better using Miralax. No vomiting. Patient in background stating that feeling much better. Reminded them to be sure he keeps visit on 06/23/23. [facility]04-29-2024 Miscellaneous Notes* Telephone Encounter - Aminah [...] triage nurse. (05/25/23 we had called in Aidin did that help him when he used [...] Patient's spouse Shweta calling with patient present library acquisitions technician also. Spouse asking for nausea medication from [...] be covered by insurance Please advise spouse. [phone] documented in this encounterSalem [facility]04[facility] Telephone encounter Note * Telephone Encounter - Aminah Escudero LPN - 06/09/2023 4:12 PM EDT Left a message for patient/ to call and speak with triage nurse. (05/25/23 we had called in [employer] did that help him when he used it?) [facility]04-26-2024 Telephone encounter Note* Telephone Encounter - Alyson Arthur MD - 06/09/2023 3:16 PM EDT I actually saw him several weeks ago so it does not really mean much He had just gotten out of the hospital with a sbo. Is he having any distention. Is the abd like he went into the hospital for Is he feeling worse. [facility]04-26-2024 Telephone encounter Note* Telephone Encounter - Janki Vale RN - 06/09/2023 3:10 PM EDT Patient's spouse Shweta calling with patient present library acquisitions technician also. Spouse asking for nausea medication from [...] be covered by insurance Please advise spouse. [phone] [facility]04-23-2024 Instructions* Patient Instructions* Kiel Barnes MD - 06/06/2023 3:38 PM EDT - stop amiodarone (pacerone) documented in this encounterSalem City Hospital04-[facility]24 History of Present illness Narrative* Kiel Barnes MD - 06/06/2023 3:23 PM EDT Images from the original note were not included. Heart, Vascular and Thoracic [facility] Department of Cardiovascular Medicine SECTION OF CLINICAL CARDIOLOGY OUTPATIENT VISIT DATE June 06, 2023 OUTPATIENT VISIT TYPE ESTABLISHED PRIMARY CARE PHYSICIAN: Alyson Arthur [address] [place] [address] REFERRING PHYSICIAN: Ruben Hanson [address], [address] [facility] [address] CHIEF COMPLAINT: Follow-up 03/20/2023: AVR (27 Epic [...] does not have to travel to the [facility]. PAST MEDICAL HISTORY Diagnosis Date Acute ischemic left MCA stroke ([facility]) 03/22/2023 Anxiety Aortic valve stenosis, nonrheumatic Atrial septal defect and mitral stenosis Bicuspid aortic valve Bipolar 1 disorder ([facility]) Chronic obstructive pulmonary disease (COPD) ([facility]) Coronary artery disease Degenerative disc disease sees Dr. Sellers Diabetic neuropathy ([facility]) DM (diabetes mellitus) ([facility]) HTN (hypertension) Hyperkalemia Hyperlipidemia Hypogonadism male LVH (left ventricular hypertrophy) Morbid obesity ([facility]) MANISH on CPAP Pain management Dr. Sellesr PAST SURGICAL HISTORY Procedure Laterality Date BACK [...] Disease Brother other (Myocardial infarc) Brother Fatal [place] No Ocular Disease No Family History ALLERGIES: [...] was interpreted by Dr. Dario Santiago from Medical Claims Representative: [facility] Transcribe Date/Time: Nov 24 2022 6:53P Dictated [...] questions or concerns. Kiel Barnes MD, MS, [facility] Co-Director, [facility] contract modeler, [facility] of Medicine of [facility] Section of Clinical Cardiology, Department of Cardiovascular Medicine Nora Garcia [facility] Heart, Vascular, and Thoracic [place], [address] [place] [address], [place] [address] Office Office Appointments: [phone] I personally interviewed, confirmed and edited the above information as obtained by others. documented in this encounterSalem City Hospital04-22-2024 Telephone encounter Note * Telephone Encounter - Laurel Adan MA - 06/05/2023 1:46 PM EDT Keep receiving a response through coverTranscepta N/A -resubmitted. Called Jeff and was advised that approved till 02/13/2024. Authorization # [id number] Laurel Adan MA [facility]04-22-2024 Miscellaneous Notes* Telephone Encounter - Laurel Adan MA - 06/05/2023 1:46 PM EDT Keep receiving a response through [employer] N/A -resubmitted. Called Jeff and was advised that approved till 02/13/2024. Authorization # [id number] Laurel Adan MA * Telephone Encounter - Laurel Adan MA - 06/05/2023 12:59 PM EDT Prior Authorization has been completed online at [employer] for Michael, will await response. [id number] Please keep encounter open until final decision has been received and documented from insurance [place]. Laurel Adan MA documented in this encounterSalem City Hospital04-22-2024 Telephone encounter Note * Telephone Encounter - Laurel Adan MA - 06/05/2023 12:59 PM EDT Prior Authorization has been completed online at [employer] for Michael, will await response. [id number] Please keep encounter open until final decision has been received and documented from insurance [place]. Laurel Adan MA [facility]04-19-2024 Miscellaneous Notes* Telephone Encounter - Apple Allen RN - 06/02/2023 9:15 AM EDT Abel OT called and notified of verbal order for additional OT visits. Abel voices understanding. Apple Allen RN * Telephone Encounter - Alyson Arthur MD - 06/01/2023 5:00 PM EDT ok * Telephone Encounter - Apple Allen RN - 06/01/2023 3:25 PM EDT Abel OT from [facility] calls and is requesting verbal order for 4 additional occupational therapy visits. Please review and advise, Apple Allen RN documented in this encounterSalem City Hospital04-17-2024 Telephone encounter Note * Telephone Encounter - Tia Arenas RN - 05/31/2023 3:55 PM EDT Reuben, PT @ [facility] calling to let provider know that patient declined a second PT visitthis week. He will be seen again next week. Tia Arenas RN [place] [id number] Miscellaneous Notes* Telephone Encounter - Tia Arenas RN - 05/31/2023 3:55 PM EDT Reuben, PT @ [facility] calling to let provider know that patient declined a second PT visitthis week. He will be seen again next week. Tia Arenas RN documented in this encounterSalem City Hospital04-16-2024 Telephone encounter Note * Telephone Encounter - Scott Cabrera RN - 05/30/2023 11:35 AM EDT Demi Lin Licensing Worker, phoned to let pcp know, they are applying for a waiver program for patient to have HHAide assistance. [address]16-2024 Miscellaneous Notes* Telephone Encounter - Scott Cabrera RN - 05/30/2023 11:35 AM EDT Demi Lin Licensing Worker, phoned to let pcp know, they are applying for a waiver program for patient to have HHAide assistance. documented in this encounterSalem City Hospital04-15-2024 History of Present illness Narrative* Jim Jeffers APRN.NOODLE PRESS OPERATOR - 05/29/2023 12:53 PM EDT Subjective HPI [...] stenosis Bicuspid aortic valve Bipolar 1 disorder ([facility]) Chronic obstructive pulmonary disease (COPD) ([facility]) Coronary artery disease Degenerative disc disease sees Dr. Sellers Diabetic neuropathy (HCC) DM (diabetes mellitus) ([facility]) HTN (hypertension) Hyperkalemia Hyperlipidemia Hypogonadism male LVH (left ventricular hypertrophy) Morbid obesity ([facility]) MANISH on CPAP Pain management Dr. [...] Disease Brother other (Myocardial infarc) Brother Fatal [place] No Ocular Disease No Family History Social [...] of care. This note was generated using Factor 14 software. It may contain errors in wording,punctuation, or spelling. Jim Jeffers APRN.TODD documented in this encounterSalem City Hospital04-15-2024 History of Present illness Narrative* Martha [...] PATIENT PRESENTS WITH AN IMPLANTABLE OR ATTACHED AREA DIRECTOR: No RADIOLOGY DEPARTMENT: General X-ray: Exam(s) Completed: Upper Extremity X- Ray(s): Wrist, right and Hand, right PERIPHERAL IV DATA: Not applicable SIGNED BY: RT Jenny(Moreno) May 29, 2023 1:00 PM documented in this encounterSalem City Hospital04-15-2024 Miscellaneous Notes* Telephone Encounter - Alyson Arthur MD - 05/29/2023 8:30 AM EDT Ok. * Telephone Encounter - Joan Gallardo RN - 05/29/2023 8:06 AM EDT Abel OT with [facility] calls to let provider know there is a delay in start of care for OT assessment per patient request. The plan is to see patient sometime this week to start OT. Joan Gallardo RN documented in this encounterSalem City Hospital04-11-2024 Miscellaneous Notes* Telephone Encounter - Elma Guthrie MA - 05/25/2023 2:38 PM EDT [place] and notified. Elma Guthrie MA * Telephone Encounter - Alyson Arthur MD - 05/25/2023 1:42 PM EDT I am not sure I want him to remain on this residential. I would prefer he begin to taper [...] pill packaging? Thank you. documented in this encounterSalem City Hospital04-11-2024 Telephone encounter Note * Telephone Encounter [...] Guthrie MA May 25, 2023 1:48 PM [facility]04-11-2024 Miscellaneous Notes* Telephone Encounter - Elma [...] 05/25/2023 12:36 PM EDT nurse Prakash @ [facility] calling to let PCP know nursing will [...] also yellowish green. If medication prescribed, [facility]. Tia Arenas RN documented in this encounterSalem City Hospital04-11-2024 Telephone encounter Note * Telephone Encounter - Alyson Arthur MD - 05/25/2023 1:03 PM EDT Sent. Did he go to Er yesterday for abd pain? [facility]04-11-2024 Telephone encounter Note* Telephone Encounter - Tia Arenas RN - 05/25/2023 12:36 PM EDT nurse Prakash @ [facility] calling to let PCP know nursing will [...] also yellowish green. If medication prescribed, [facility]. Tia Arenas RN [facility]04-10-2024 Miscellaneous Notes* Telephone Encounter - Aminah [...] reports pt having stomach pain at the [facility]. This comes and goes. today it [...] this. July Perez LPN documented in this encounterSalem City Hospital04-10-2024 Miscellaneous Notes* Telephone Encounter - July [...] you. July Perez LPN. documented in this encounterSalem City Hospital04-10-2024 Miscellaneous Notes* Telephone Encounter - Laurel Adan MA - 05/24/2023 11:28 AM EDT Daughter advised yes patient was started on this from [facility] and is taking as directed [facility] still not recieved Laurel Adan MA * Telephone Encounter - Alyson Arthur MD - 05/24/2023 11:19 AM EDT Just got his med rec from [facility]. Is on eliquis per them which is one that is not showing on our list. Make she is on it. Does he need refills? documented in this encounterSalem City Hospital04-10-2024 Miscellaneous Notes* Telephone Encounter - Aminah [...] nausea. Is taking pantoprazole once daily Laurel dAan MA * Telephone Encounter - Alyson Arthur MD - 05/24/2023 7:57 AM EDT Stomach xray is ok. Check how his stomach is feeling? documented in this encounterSalem City Hospital04-10-2024 Miscellaneous Notes* Telephone Encounter - Laurel [...] next visit If you have questions, either [employer] Resourceshart message us or call the office at [phone] and ask for me. Best regards, Keith Livingston PA-C documented in this encounterSalem City Hospital04-09-2024 Miscellaneous Notes* Telephone Encounter - Elma [...] anyway. It is not a great med residential. Also can we make sure we have [...] completed for temazepam 7.5mg. documented in this encounterSalem City Hospital04-09-2024 Telephone encounter Note * Telephone Encounter - Fely Cohn LPN - 05/23/2023 1:38 PM EDT Reuben from [facility] calling did PT eval today and plan of care is to continue with 8 PT visits. [facility]04-09-2024 Miscellaneous Notes* Telephone Encounter - Fely Cohn LPN - 05/23/2023 1:38 PM EDT Reuben from [facility] calling did PT eval today and plan of care is to continue with 8 PT visits. documented in this encounterSalem City Hospital04-09-2024 Miscellaneous Notes* Telephone Encounter - Laurel [...] - 05/22/2023 4:44 PM EDT Kenzie with [place] [facility] calls to report they received rx for both insulins today but need an orderfor syringes and pen needles. Do not know what size syringes pt needs. Please review and advise. Yoly Murray LPN documented in this encounterSalem City Hospital04-08-2024 Miscellaneous Notes* Telephone Encounter - Ned Burgess LPN - 05/22/2023 2:43 PM EDT Called [place] Ned Burgess LPN May 22, 2023 2:43 PM * Telephone Encounter - Alyson Arthur MD - 05/22/2023 2:18 PM EDT Once a day prn * Telephone Encounter - Tia Arenas RN - 05/22/2023 2:06 PM EDT [place] [facility] calling to clarify script for Glycerin suppository. Pharmacy needs # of suppositories patient to use per day. Tia Arenas, THOMAS documented in this encounterSalem City Hospital04-08-2024 History of Present illness Narrative* Kervin [...] PATIENT PRESENTS WITH AN IMPLANTABLE OR ATTACHED AREA DIRECTOR: No RADIOLOGY DEPARTMENT: General X-ray: Exam(s) Completed: Chest X-Ray Abdomen X-Ray: Abdomen PERIPHERAL IV DATA: Not applicable SIGNED BY: RT Aury(R) May 22, 2023 10:48 AM documented in this encounterSalem City Hospital04-08-2024 Instructions* Patient Instructions* Alyson Arthur MD - 05/22/2023 9:57 AM EDT Follow up with Dr. Alcocer with CTA chest in 3 months (06/27/23). documented in this encounterSalem City Hospital04-08-2024 History of Present illness Narrative* Alyson Arthur MD - 05/22/2023 9:36 AM EDT Patient presents with: Hospital F/U HPI: Patient presents today for office visit for very complicated hospital follow up. HOSPITAL/ER FOLLOW UP: Reason for visit: Went in to [facility] 03/20/23 for heart valve surgery. Suffered stroke during surgery. Which facility: [facility] Date of visit: 03/20/23-04/07/23 Discharged to [facility] rehab 04/07/23. Hospitalized for a couple days at [facility] for bowel obstruction. Diagnosis: Stroke Not all records available([facility]) Patient arrived late to appt and [...] now resolved. See below regarding his stroke. [facility] is to come soon. We believe they will be starting therapy. Just discharged from [place] on Monday. They apparently did an xray [...] meds for now. Has appt to see software packager in [facility] this Monday so will hold on EKG today as recommended below. See previous discharge summary: [facility] Primary Endoscopy Tech: Kiel Barnes MD, MS, [facility] Admission Diagnosis: Aorta Aneurysm Aortic Valve Stenosis Discharge Diagnosis: Aorta Aneurysm Aortic Valve Stenosis Reason for Hospitalization: [facility] Mr. Catherine is a 62 year old male who is seen for cardiovascular medicine evaluation. He has planned aortic valve replacement for severe stenosis in the setting of bicuspid aortic valve next week. Heis limited on physical exertion secondary to shortness of breath and orthopedic back pain. Operations during Hospitalization: 03/20/2023: AVR (27 [facility]) and Ascending repair (28 [facility]) Hospital Course: * How was the Reason [...] normal range. Malnutrition/ aspiration risk / Dysphagia: HYDROGENATION OPERATOR consulted ->Failed swallow eval-> Corpak placed on 03/23, TF started. Evaluated by ENT 03/29: flexible laryngoscopy showed pooling of secretions in hypopharynx with skip aspiration, but bilateral TVC mobile and medialize well with phonation. No indication for injection medialization or other procedural intervention from ENT perspective, cont swall ow therapy w/ speech. 04/03 passed MBS L2 Mildly ([place]) Thick Liquids / L5 Minced and Moist [...] unstageable Discharge: 62 yr old male from [place], [place]. PT/OT/PMR recommend acute rehab. -AR planning, [...] Aorta, partial excision: -Atherosclerosis (grade of the [place] [employer]). * Hospital Course Complicated by: [...] Morbid obesity with BMI of 50.0-59.9, adult ([facility]) (11/09/2012) LVH (left ventricular hypertrophy) () Severe aortic stenosis (08/10/2018) GERD without esophagitis (10/23/2021) Peripheral vascular disease ([facility]) (12/06/2022) Chronic back pain (09/28/2022) Chronic obstructive pulmonary disease ([facility]) (10/11/2022) Class 3 severe obesity with body mass index (BMI) of 50.0 to 59.9 in adult ([facility]) (02/21/2023) Discharge planning issues (03/16/2023) Chronic diastolic heart failure ([facility]) (03/16/2023) Dysphagia (03/22/2023) Arterial ischemic stroke, MCA (middle cerebral artery), left, acute ([facility]) (03/22/2023) Open wound of left great toe (03/22/2023) Alteration in skin integrity due to moisture (03/22/2023) Skin tear of upper extremity (03/22/2023) Pressure injury of sacral region, unstageable ([facility]) (03/22/2023) Impaired gait and mobility (03/24/2023) Right arm weakness (03/24/2023) Coordination impairment (03/24/2023) Alteration in self-care ability (03/24/2023) Insulin dose changed ([facility]) (03/24/2023) Type 2 diabetes mellitus with hyperglycemia, with long-term current use of insulin ([facility]) (03/24/2023) Nicotine use disorder, F17.2 (03/27/2023) Dysarthria (03/27/2023) Primary sleep apnea of (03/28/2023) Pressure injury of coccygeal region, unstageable ([facility]) (04/03/2023) Cognitive communication deficit (04/04/2023) Slurred speech (04/05/2023) Right hemiparesis ([facility]) (04/05/2023) On tube feeding diet (04/06/2023) [...] with you. 3. Follow up with your Endoscopy Tech within 4 weeks. Mr. Catherine was offered an appointment with a [facility] Endoscopy [facility]. He accepted and a follow up appointment [...] Diagnosis Date Acute ischemic left MCA stroke ([facility]) 03/22/2023 Anxiety Aortic valve stenosis, nonrheumatic Atrial septal defect and mitral stenosis Bicuspid aortic valve Bipolar 1 disorder ([facility]) Chronic obstructive pulmonary disease (COPD) ([facility]) Coronary artery disease Degenerative disc disease sees Dr. Sellers Diabetic neuropathy ([facility]) DM (diabetes mellitus) ([facility]) HTN (hypertension) Hyperkalemia Hyperlipidemia Hypogonadism male LVH (left ventricular hypertrophy) Morbid obesity ([facility]) MANISH on CPAP Pain management Dr. [...] Disease Brother other (Myocardial infarc) Brother Fatal [place] No Ocular Disease No Family History Social [...] better. Alyson Arthur MD documented in this encounterSalem City Hospital04-06-2024 Note Discharge Instructions Thank you for [...] Appointments Appointment Type When Where Contact InformationCV MANAGER COMMERCIAL 05/26/2023 01:30 PM EDT [facility] Follow Up Appointments Follow Up with KIRK BARCENAS MD When 05/26/2023 01:30 PM EDT Why: Cardiology - Where: [address] [place] [address]- Follow Up with ALYSON ARTHUR MD When 05/22/2023 09:00 AM EDT Why: Take Discharge Instructions to Dr Gonzalez - Where: [facility] [address] [place] [address]- [phone] Follow Up with RICHARD ARSHAD MD, Surgery When Only if needed Why: General Surgeon - Where: [address] [facility] [address] [place] [address]- [phone] The Following Activity and Diet Have Been [...] - Ordered -- Must complete driving evaluation, [employer] Driving Eval [phone] [place] [employer] Driving Eval [phone] [employer] Driving Eval [phone], and must be cleared by a physician [...] patient hip width 26 accross. Provided by [employer] [phone], 05/18/23 11:47:00 EDT Discharge Home Equipment - Ordered -- Semi-electric hospital bed; HALF rails, 99 month(s), Provided by [facility] [phone], 05/18/23 11:48:00 EDT Discharge Wound Care - [...] Therapy Instruction: Full weight bearing, Provided by [facility] [phone] Consult Home Health - RN - Ordered [...] Two (2) times a day Pickup at [facility] [employer] [address] New docusate-senna (Senokot S 50 mg-8.6 mg oral tablet) 2 tab(s) by mouth Two (2) times a day Pickup at [facility] [address] New glycerin (glycerin adult rectal suppository) 1 suppository(ies) in the rectum Every day as needed for Constipation New magnesium hydroxide (Milk of Magnesia) 30 Milliliter by mouth Daily at bedtime as needed for Constipation New melatonin 5 Milligram by mouth Daily at bedtime New miconazole topical (Desenex 2% topical powder) 1 application Topical Two (2) times a day Pickup at [facility] [address] New traMADol (traMADol 50 mg oral tablet) 1 tab(s) by mouth Every 4 hours as needed for Pain, scale 1-6 Changed docusate (Colace 100 mg oral capsule) 1 cap by mouth Two (2) times a day as needed for Constipation Changed insulin glargine (Lantus 100 units/ mL10 ml vial solution) 12 unit(s) Subcutaneous (INT) Daily before supper Pickup at [facility] [employer] [address] Changed insulin isophane (NPH) (insulin isophane (NPH) human recombinant 100 units/ mL subcutaneoussuspension) 38 unit(s) Subcutaneous Every day Pickup at [facility] [employer] [address] Changed pantoprazole (pantoprazole 40 mg oral enteric coated tablet) 40 Milligram by mouth Once a day Pickup at [facility] [address] Changed polyethylene glycol 3350 (Miralax Powder Packet) by mouth Once a day as needed for Constipation Changed polyethylene glycol 3350 (polyethylene glycol 3350 oral powder for reconstitution) 17 gram(s) by mouth Every day Changed zinc oxide topical (zinc oxide 13% topical cream) 1 application Topical Two (2) times a day Pickup at [facility] [employer] [facility] Unchanged acetaminophen (acetaminophen 650 mg oral tablet, extended release) 1 tab(s) by mouth Two (2) times a day as needed for as needed for pain Unchanged albuterol (albuterol MDI (90 mcg/ inh) [facility] free inhalation aerosol) 2 puff(s) by inhalation Every 4 hours as needed for as needed for wheezing Pickup at [facility] [address] Unchanged amiodarone (amiodarone 200 mg oral tablet) 1 tab(s) by mouth Once a day Pickup at [facility] [address] Unchanged amLODIPine (amLODIPine 5 mg oral tablet) 1 tab(s) Nasogastric Once a day Pickup at [facility] [address] Unchanged apixaban (apixaban 5 mg oral tablet) 1 tab(s) by mouth Two (2) times a day Pickup at [facility] [address] Unchanged atorvastatin (atorvastatin 10 mg oral tablet) 1 tab(s) by mouth Daily at bedtime Pickup at [facility] [address] Unchanged budesonide-formoterol (Symbicort 80 mcg-4.5 mcg/ inh Inhaler) 2 puff(s) by inhalation Two (2) times a day Pickup at [facility] [address] Unchanged guaiFENesin (guaiFENesin 100 mg/ 5 mL oral liquid) 10 Milliliter by mouth Every 6 hours as needed for as needed for cough Unchanged metoprolol (metoprolol tartrate 37.5 mg oral tablet) 1 tab(s) by mouth Two (2) times a day [facility]up at [facility] [facility] Unchanged multivitamin with minerals (Centrum) [...] bedtime as needed for Sleep Pharmacy Information [facility] #30: [address] [place], [place] [phone] What How Much When Comments Stop Taking [...] Keep items that you use often in towt-fk-ykpyg places. Lower the shelves around your home [...] of the way. Do not use floor french or wax that makes floors slippery. If [...] for Disease Control and PreventionMOISÉS: https://cdc.gov National Altavista on Aging: https://wb7mbvh.bimal.nih.gov Contact a doctor if: You are afraid [...] 11/26/2009 Document Revised: 05/23/2019 Document Reviewed: 2017 SuperSonic Imagine Patient Education 2020 SuperSonic Imagine Inc. Hospital Discharge After a Stroke Being [...] depending on your insurance coverage. Check with yourBringShare company about what is covered. Keeping follow-up [...] Document Reviewed: 05/05/2017 Elsevier Patient Education 2020 SuperSonic Imagine Inc. Aortic Valve Stenosis Aortic valve stenosis [...] care provider who specializes in the heart (software packager) for diagnosis and treatment. How is this [...] what medicines you take. General instructions Take tefk-xft-mjvsydg and prescription medicines only as told by [...] Document Reviewed: 10/28/2016 Elsevier Patient Education 2020 SuperSonic Imagine Inc. Additional Information VACCINATE! IT SAVES LIVES! Members of the community who have not yet received the COVID-19 vaccine and would like to receive it can visit one of [facility] vaccine clinics. There are many vaccine clinic locations within the [facility]. For locations and available times, please visit https://[email or web address].[place].gov/. It is important to note that some COVID mobile vaccine clinics are held outdoors and may be canceled in rainy or stormy conditions. To learn more about pediatric vaccinations (ages 5-11), we invite you to visit the [employer] webpage. https://www.SpendSmart [employer] Companys.org/pages/5539-Veykf-Tlsrrkbywly-Rujlaenrvo-Xmplx-Dpq stions.htmlTo learn more about the COVID-19 vaccine, we invite you to visit the CDC website for a list of frequently asked questions.https://www.cdc.gov/coronavirus/2019-ncov/vaccines/faq.html [facility] Patient Portal Access Instructions: Stay connected with your healthcare team and access your personal medical information anytime with the [facility] Patient Portal. Please follow the directions below to create your [facility] account: 1.Access the email account you provided upon registration to the hospital/physician office.2.Look for an invitation email from [facility].3.Open the email and access the invitation link: AcceptInvitation to [facility].4.Fill in the required sharp to create your account. To access your account, visit [email or web address]. Click the blue button labeled Access Patient [...] who you will allowto register on the [facility] Patient Portal for access to your information. You can also access the [facility] on the [facility] Any[facility] nan. Simply click on Patient Portal and then log into your account. If you would like to receive a full copy of your medical records, please contact the [facility] Medical Records Department by calling [phone], Monday through Monday between 8 a.m. and [...] Call your local pharmacy or go to [email or web address] to find one close to you.3.Make use of household items: Use cat litter or old coffee grounds to dispose medications if other options arenot available. Mix your drugs with these household products, seal them in an airtight container andthrow it into the garbage. Call [facility]: [phone] to be sure your drugs can be [...] Materials Fall Prevention in the Home, Adult, Rroy-tn-Qyxp Hospital Discharge After a Stroke Aortic Valve [...] aware that I should contact my doctor. Patient/Wrapper Stemmer Hand Signature: Date/Time: (more content not included)... Leland MckoyFsarllqq39-63-5447 Nurse Progress note Nursing GG Entered On: 05/20/2023 11:13 EDT Performed On: 05/20/2023 11:12 EDT by Bebeto Cruz RN Nursing GG's OT GG Grid Eating : Set up & Clean up Bebeto Cruz RN - 05/20/2023 11:12 EDT Digitally Signed by Bebeto Cruz RN on 05/20/2023 11:12 AM Leland MckoyAdpuwpxl70-80-3393 Note ORIGINAL EXAMINATION: ONE SUPINE XRAY VIEW(S) [...] Bebeto Cruz RN on 05/19/2023 05:38 PM eLland MckoyJgvlusct22-97-0904 Hospital Discharge instructions Patient Education 05/19/2023 12:41:41 Fall Prevention in the Home, Adult, Gzxs-wp-Jxjt Fall Prevention in the Home, Adult Falls [...] Keep items that you use often in mfio-tv-pibxr places. Lower the shelves around your home [...] of the way. Do not use floor french or wax that makes floors slippery. If [...] Disease Control and Prevention, STEADI: https://cdc.gov National Altavista on Aging: https://jk1ljaz.bimal.nih.gov Contact a doctor if: You are afraid [...] 11/26/2009 Document Revised: 05/23/2019 Document Reviewed: 2017 SuperSonic Imagine Patient Education 2020 [employer]. 05/19/2023 12:41:35 Hospital Discharge After a Stroke [...] depending on your insurance coverage. Check with yourBringShare company about what is covered. Keeping follow-up [...] 05/05/2017 Document Revised: 02/02/2018 Document Reviewed: 05/05/2017 SuperSonic Imagine Patient Education 2020 SuperSonic Imagine Inc. 05/19/2023 12:41:33 Aortic Valve Stenosis Aortic [...] care provider who specializes in the heart (software packager) for diagnosis and treatment. How is this [...] what medicines you take. General instructions Take nwhn-hbn-uloemux and prescription medicines only as told by [...] 10/29/2003 Document Revised: 01/12/2018 Document Reviewed: 11/02/2017 SuperSonic Imagine Patient Education 2020 SuperSonic Imagine Inc. 05/19/2023 12:41:17 Form - Daily Weight [...] Care 04/27/2023 15:36:01 With:ALYSON ARTHUR MD Address: [facility] [address] [place] [address] [phone] When:05/22/2023 09:00:00 Comments:Take Discharge Instructions to Dr Visit - With:RICHARD ARSHAD MD, Surgery Address: [address] [place] [phone] When: only if needed Comments:General Surgeon - With:KIRK BARCENAS MD Address: [address] [facility] [address] [facility] [place] [address]- When:05/26/2023 13:30:00 Comments:Cardiology - [facility] 04-05-2024 Nurse Progress note Nursing GG Entered On: 05/19/2023 14:14 EDT Performed On: 05/19/2023 14:13 EDT by Bebeto Cruz RN Nursing GG's OT GG Grid Eating : Set up & Clean up Bebeto Cruz RN - 05/19/2023 14:13 EDT Digitally Signed by Bebeto Cruz RN on 05/19/2023 02:[address] [facility] CenterGzfexokz85-40-8676 Physical medicine and rehab Progress note Subjective [...] Neurological: Dysarthria, right upper extremity weakness VITALS DdnkvxNgugVIWiavnHTKdB2AUE1QgxiGi(kg) 05/18 05:2236.4--752270PF69/02199.0 05/17 20:4436.8--114039MA74/56072.4 05/17 16:4336.7--949122LD14/05067.0 05/17 07:5436.5--685467VJ 05/17 06:1035.9--912898UM 24 Hr Tmax: 36.8 at 05/17 20:44 [...] 1 tab(s), Oral, qDay, 1st dose location: [facility], , 05/02/23 10:39:00 EDT amiodarone Start: 04/27/23 [...] Problems (12) Acute ischemic left MCA stroke (7742273280) Aortic stenosis with bicuspid valve (502799918) Bipolar (884924186) Chronic back pain greater than three months duration (8903625671) COPD (chronic obstructive pulmonary disease) (33773972) Fall (4544828) Fever (9880400272) HLD (hyperlipidemia) (69761651) HTN (hypertension) (4707ZP6D-[id number]-ZVT154OO9300) Morbid obesity (099598559) Obesity (R3578H76-0328-5L90-R70D-V7R7915X2R1Q) Sleep apnea (82OH666F-9CG3-7I03-H3O3-5F35QQ86SX6V) ASSESSMENT/PLAN: Severe aortic stenosis status post aortic [...] BENJAMIN MINER DO on 05/19/2023 03:[address] [facility] CenterOopokbnp94-39-9789 Podiatry Consult note Date of Service 05/08/2023 Reason for Consultation Footcare Referring Physician Dr. Becerril History of Present Illness Patient is a 62-year-old male consulted for footcare. He is admitted to [facility] for inpatient rehabilitation and medical management. Admitted to [facility] previously for CHF exacerbation and [...] ALLISON SINGH DPM on 05/18/2023 03:[address] [facility] CenterVrvljcxi37-88-0078 Miscellaneous Notes* Telephone Encounter - Allison Omalley MA - 05/18/2023 2:00 PM EDT Nitza with [facility] informed [facility]. Arthur will follow. Allison Omalley MA * Telephone Encounter - Alyson Arthur MD - 05/18/2023 12:14 PM EDT Ok to do * Telephone Encounter - Apple Allen RN - 05/18/2023 12:02 PM EDT Nitza from [facility] calls and states that patient is being discharged from [facility] on 05/20/2023. Nitza asking if provider willing to follow patient with orders for retirement,physical therapy, occupational therapy, and home health aide. If agreeable please give Nitza a call back , extension [phone]. Thank you, Apple Allen RN documented [facility] Note Subjective patient states he is [...] Neurological: Dysarthria, right upper extremity weakness VITALS FvbkauLwiiKUDgpxoHSZeS9LML0TykvMk(kg) 05/16 22:46----590074--72/35687.0 05/16 21:0336.7--551363US60/12769.4 05/16 16:37----89----RA03/13257.0 05/16 16:3236.6--923232AS 05/16 07:5036.5--103784UB 24 Hr Tmax: 36.7 at 05/16 21: [...] 1 tab(s), Oral, qDay, 1st dose location: [facility], 1, 05/02/23 10:39:00 EDT amiodarone Start: 04/27/23 [...] Problems (12) Acute ischemic left MCA stroke (6688318415) Aortic stenosis with bicuspid valve (572287779) Bipolar (049313407) Chronic back pain greater than three months duration (9172136657) COPD (chronic obstructive pulmonary disease) (84054706) Fall (9896214) Fever (1398338504) HLD (hyperlipidemia) (53211337) HTN (hypertension) (2071EU2V-6981-4004-6598-CRK429OS3520) Morbid obesity (113419216) Obesity (A1508T83-1859-7Y09-Z87C-D1S2539V3Q5I) Sleep apnea (75BB729Y-8BX0-3X74-P1N2-8I36BJ92EV1J) ASSESSMENT/PLAN: Severe aortic stenosis status post aortic [...] BENJAMIN MINER DO on 05/18/2023 02:[address] [facility] CenterGyetddzk18-30-9157 Physical medicine and rehab Progress note Rehab [...] was sent to the emergency department from [facility] inpatient [facility] unit with abdominal pain, vomiting, [...] Rate76(MAY 15 16:04)70(MAY 15 07:58)76(MAY 15 16:04) KBD180(MAY 15 23:45)128(MAY 15 23:45)H 146(MAY 15 07:58) [...] BECERRIL DO on 05/17/2023 01:16 PM Leland MckoyRhfngzbz64-87-3450 Note Subjective Patient states he is doing [...] Neurological: Dysarthria, right upper extremity weakness VITALS WqgoosYauxMIOamavELUvX9MKX8MdtiVp(kg) 05/15 23:4536.4--603443WH47/53735.4 05/15 20:3136.0--572443IJ74/85197.0 05/15 16:04----76----RA03/69963.6 05/15 10:39 0.0L/m 05/15 08:18----70----RA 24 Hr [...] 1 tab(s), Oral, qDay, 1st dose location: [place] [address], 05/02/23 10:39:00 EDT amiodarone Start: 04/27/23 21:12:00 [...] Problems (12) Acute ischemic left MCA stroke (9985492487) Aortic stenosis with bicuspid valve (661684152) Bipolar (969324328) Chronic back pain greater than three months duration (3566657662) COPD (chronic obstructive pulmonary disease) (59035014) Fall (5768435) Fever (7755922660) HLD (hyperlipidemia) (68333802) HTN (hypertension) (3479GP8B-3615-3038-7783-ZFF753TI9266) Morbid obesity (200006077) Obesity (F5267F49-4880-3B94-F94X-K6U0674J0L6Q) Sleep apnea (87DS569U-8RB0-9E06-A7T3-2F75JQ99TE1N) ASSESSMENT/PLAN: Severe aortic stenosis status post aortic [...] BENJAMIN MINER DO on 05/18/2023 09:[address] [facility] CenterEpnxhybl44-35-0238 Physical medicine and rehab Progress note Rehab [...] was sent to the emergency department from [facility] inpatient rehabilitation unit with abdominal pain, vomiting, [...] Rate75(MAY 14 16:42)74(MAY 14 09:19)75(MAY 14 16:42) XMS532(MAY 14:25)124(MAY 14:19)126(MAY 14 16:25) DBPL 52(MAY 14:25)L [...] BECERRIL DO on 05/16/2023 01:11 PM Leland PaulinoLatapthk22-31-3058 Note Subjective Patient reports doing well this [...] Neurological: Dysarthria, right upper extremity weakness VITALS FqtecxPzprHLKlqnoVCAbC7PZF0XyzzUw(kg) 05/15 01:3036.4--512352--61/75533.0 05/14 16:42----75------/12425.6 05/14 16:2536.6--330869VX87/28696.0 05/14 10:10--------94RA 05/14 09:1936.2--662629YS 24 Hr Tmax: 36.6 at 05/14 16:25 [...] 1 tab(s), Oral, qDay, 1st dose location: [place] [address], 05/02/23 10:39:00 EDT amiodarone Start: 04/27/23 21:12:00 [...] Problems (12) Acute ischemic left MCA stroke (9964539161) Aortic stenosis with bicuspid valve (325404617) Bipolar (389857173) Chronic back pain greater than three months duration (6335574948) COPD (chronic obstructive pulmonary disease) (67398660) Fall (6925346) Fever (3719186272) HLD (hyperlipidemia) (94495585) HTN (hypertension) (4038NP3P-9344-4002-3055-CWU341LS0358) Morbid obesity (396270837) Obesity (M2654I13-8521-5X22-H76I-S8H4977E5R1J) Sleep apnea (06RW541Q-6LM9-6E77-P5U4-4R18QF86CR3K) ASSESSMENT/PLAN: Severe aortic stenosis status post aortic [...] MINER DO on 05/18/2023 09:21 AM Leland MckoyAmecrduf58-01-6692 Cardiology Consult note Date of Service 05/14 Reason for Consultation AVR Referring Physician [facility] History of Present Illness This is a 62-year-old male with history of aortic stenosis and ascending aortic aneurysm status post AVR and root replacement. This was on [facility]. Postop was complicated by a stroke. He was also found to be in A-fib. He also had subsequent admission at [facility] for small bowel obstruction. He had an [...] do not have these records, done in [facility] in March 2023. 2) atrial fibrillation -Completed amiodarone. Continue Eliquis and metoprolol. Rate controlled. Appears to be in sinus. 3) Pericardial effusion -Moderate. Likely postop changes. Will need a repeat echo, has an appointment with us in a few weeks. Though I'm unsure which cardiology group he's following, he was seeing [facility] prior to all this. Patient' was [...] KATERINA SALDANA MD on 05/15/2023 04:[address] [facility] CenterUchexgwp84-87-5161 Note ORIGINAL EXAMINATION: ONE SUPINE XRAY VIEW(S) [...] will be coming from DME: [place] PH: [phone] FAX: [phone] Per they need rx and face sheet [...] pt. Pt is still an inpt at [facility]. not sure when he will released home. Pt will go back the rehabilitation for a little while per . She is trying to get everything ready for when he comes home. The bed needs to raise up and down, soft because of his bad back. Pt will need to call with [employer]. July Perez LPN documented in this encounterSalem City [facility]03-15-[facility]24 Evaluation + Plan note Extracted from: Title:Clinical Document Author:MALIA BECERRIL Date:04/28/23 Acute Inpatient Rehab Histor y and Physical Date of Service: 04/28/2023 Date of Admission: 04/27/2023 Attending Physician: Dr. Becerril Impairment Group 1.2 right body involved CVA, left brain Etiologic Diagnosis Left MCA infarct in posterior left frontal lobe Small bowel structure History of Present Illness 62-year-old male noted to [facility] inpatient [facility] from [facility] stay 04/22 - 04/26 with a [...] exacerbation. Patient deemed medically stable transferred to [facility] inpatient rehab unit for physical and occupational [...] home with family, first-floor set up. Primary Conveyor Loader: Self. Safe place to go: Yes. Lives [...] Rate82(APR 26 19:55)82(APR 26 19:55)82(APR 26 19:55) INY036(APR 26 19:55)140(APR 26 19:55)140(APR 26 19:55) DBP64(APR [...] Appointment Date:05/26/2023 01:30:00 PM Scheduled Provider: Location:[facility] Appointment Type:CV MANAGER COMMERCIAL Leland Mckoy 03-15-2024 Physical medicine and rehab History and physical note Acute Inpatient Rehab History and Physical Date of Service: 04/28/2023 Date of Admission: 04/27/2023 Attending Physician: Dr. Becerril Impairment Group 1.2 right body involved CVA, left brain Etiologic Diagnosis Left MCA infarct in posterior left frontal lobe Small bowel structure History of Present Illness 62-year-old male noted to [facility] inpatient [facility] from [facility] stay 04/22 - 04/26 with a [...] exacerbation. Patient deemed medically stable transferred to [facility] inpatient rehab unit for physical and occupational [...] home with family, first-floor set up. Primary Conveyor Loader: Self. Safe place to go: Yes. Lives [...] 26:55) Heart Rate82(APR 26:55)82(APR 26 19:55)82(APR 26:55) WDU662(APR 26:55)140(APR 26 19:55)140(APR 26:55) DBP64(APR 26:55)64(APR 26:55)64(APR [...] MALIA BECERRIL DO on 04/28/2023 12:[address] [facility] CenterVfzmqaaj90-27-0130 Physical medicine and rehab Consult note INPATIENT REHAB MEDICAL CONSULT DATE OF ADMISSION: 04/27/2023 CC: SBO, AVR ascending repair, L MCA infarct HISTORY OF PRESENT ILLNESS: This is a 62-year-old male admitted to [facility] rehab unit for [facility] stay 04/22 - 04/26 has history [...] initiated. Patient deemed medically stable transferred to [facility] inpatient [facility] unit for physical and occupational [...] Rate82(APR 26 19:55)82(APR 26 19:55)82(APR 26 19:55) ZSF967(APR 26 19:55)140(APR 26 19:55)140(APR 26 19:55) DBP64(APR [...] will follow during acute rehabilitation stay at [facility] Inpatient Rehab Unit with the goal of [...] MINER DO on 05/04/2023 09:22 AM Leland MckoyPxmjvfrh18-25-8114 Hospital Discharge instructions Patient Education 04/27/2023 18:39:47 Bowel Obstruction, Lwst-pb-Atvm Bowel Obstruction A bowel obstruction means that [...] Follow these instructions at home: Medicines Take akic-obw-psinehy and prescription medicines only as told by [...] keep your pee (urine) pale yellow. ?Take idci-oux-dickpar or prescription medicines. ?Eat foods that are [...] 03/09/2005 Document Revised: 06/13/2018 Document Reviewed: 06/13/2018 SuperSonic Imagine Patient Education 2020 [employer] Follow Up Care 04/23/2023 05:16:22 With:Dorothy Mckoy [facility], Address:Unknown When:1-2 days With:ALYSON ARTHUR Address: [facility] [address] [place] [phone] Business (1) When:1-2 days [facility] 03-14-2024 Note Discharge Instructions Thank you for allowing [facility] to assist you with your healthcare needs. [...] ALYSON ARTHUR When Within 1-2 days Where: [facility] [address] [place] [phone] Business (1) The Following Activity and Diet [...] times a day Refills: 2 Pickup at [facility] Changed insulin lispro (HumaLOG) (insulin lispro [...] Two (2) times a day Pharmacy Information [facility] #30: [address] [place], [place] [phone] What How Much When Comments Stop Taking [...] Follow these instructions at home: Medicines Take qjym-wpy-mbralja and prescription medicines only as told by [...] your pee (urine) pale yellow. ? Take dhmz-aao-eotjhbq or prescription medicines. ? Eat foods that [...] 03/09/2005 Document Revised: 06/13/2018 Document Reviewed: 06/13/2018 SuperSonic Imagine Patient Education 2020 [employer]. Additional Information VACCINATE! IT SAVES LIVES! Members of the community who have not yet received the COVID-19 vaccine and would like to receive it can visit one of [facility] vaccine clinics. There are many vaccine clinic locations within the [facility]. For locations and available times, please visit https://gettheshot.coronavirus.[place].gov/. It is important to note that some COVID mobile vaccine clinics are held outdoors and may be canceled in rainy or stormy conditions. To learn more about pediatric vaccinations (ages 5-11), we invite you to visit the [facility] webpage. https://www.[facility].org/pages/6996-Bskon-Aripotxcgcg-Vvoxgdsaxo-Wfovi-Tgc stions.htmlTo learn more about the COVID-19 vaccine, we invite you to visit the CDC website for a list of frequently asked questions.https://www.cdc.gov/coronavirus/2019-ncov/vaccines/faq.html [facility] Patient Portal Access Instructions: Stay connected with your healthcare team and access your personal medical information anytime with the [facility] Patient Portal. Please follow the directions below to create your [facility] account: 1.Access the email account you provided upon registration to the hospital/physician office.2.Look for an invitation email from [facility].3.Open the email and access the invitation link: AcceptInvitation to [facility].4.Fill in the required sharp to create your account. To access your account, visit [email or web address]. Click the blue button labeled Access Patient [...] who you will allowto register on the [facility] Patient Portal for access to your information. You can also access the [facility] Patient Portal on the [facility] E-TEK Dynamicswhere nan. Simply click on Patient Portal and then log into your account. If you would like to receive a full copy of your medical records, please contact the [facility] Medical Records Department by calling [phone], Monday through Monday between 8 a.m. and [...] Call your local pharmacy or go to http://bit.ly/0U5Cg3p to find one close to you.3.Make use of household items: Use cat litter or old coffee grounds to dispose medications if other options arenot available. Mix your drugs with these household products, seal them in an airtight container andthrow it into the garbage. [facility]: [phone] to be sure your drugs can be [...] COPY. Signatures Patient Education Materials Bowel Obstruction, Lhgi-nv-Pirk Medication Leaflets My discharge plan and instructions have been reviewed and explained to me and I,KIEL CATHERINE understand my current condition and have read and understand these discharge instructions. I have received a written copy of the plan/instructions. If I have questions, I am aware that I should contact my doctor. Patient/Wrapper Stemmer Hand Signature: Date/Time: Relationship to Patient: Witness Name/Signature: Date/Time[facility] Discharge summary Date of Service 04/27/2023 Discharge [...] (J44.9 - ICD-10-CM) Atherosclerotic heart disease of rincon coronary artery without angina pectoris (I25.10 - ICD-10-CM) Bipolar disorder, unspecified (F31.9 - ICD-10-CM) Hypertensive heart disease with heart failure (I11.0 - ICD-10-CM) Hyperlipidemia, unspecified (E78.5 - ICD-10-CM) Obstructive sleep apnea (adult) (pediatric) (G47.33 - ICD-10-CM) Anemia, unspecified (D64.9 - ICD-10-CM) Sleep apnea, unspecified (G47.30 - ICD-10-CM) Unspecified atrial fibrillation (I48.91 - ICD-10-CM) Abdominal pain (4015VXTU-1X98-3X170V06-8N72-G5E2-8X6N10UZ0JN5 - PNED) Bowel obstruction (K56.7 - ICD-10-CM) Fever (C19593V4-B797-4IEC-2DX5-M86TH769C1CL - PNED) Fever (R50.9 - ICD-10-CM) Additional Orders: Other status: Chest XR 1 View (Portable),04/27/23 9:51:00 EDT, 04/27/23 9:51:00 EDT, Routine, SOB, Full code, Portable: Yes, MTT with Monitor, Isolation: None, IV: No, Oxygen: Yes, Diabetes: Yes, : N/A, Wt k.3, [facility], ME6N(Complete) Ordered: Discharge,04/27/23 15:05:00 EDT, Discharged to: [facility] Facility Ordered: Discharge Activity,As instructed by therapy, 04/27/23 15:05:00 EDT Ordered: Discharge Diet,04/27/23 15:05:00 EDT Ordered: Transfer of Care Activity,Activity As Tolerated, 04/27/23 15:06:00 EDT Ordered: Transfer of Care Code Status,Full Code, Constant Order Ordered: Transfer of Care Diet,04/27/23 15:06:00 EDT Ordered: Transfer of Care Orders Electronically Signed By,04/27/23 15:06:00 EDT, URMLIA GARCÍA MD Ordered: Transfer of Care Prognosis,Fair, Patient Aware: Yes Ordered: Transfer of Care Rehab Potential,Rehab potential fair, 04/27/23 15:06:40 EDT Ordered: apixaban 5 mg oral tablet,Dose : 5 mg = 1 tab(s), Oral, BID, # 60 tab(s), 2 Refill(s), Pharmacy: [facility], 155, cm, 04/23/23 12:45:00 EDT, Height, 123.3, kg, 04/23/23 12:45:00 EDT, Dosing Weight Hospital Course 62-year-old male with a past medical history of status post AVR at [facility] on 03/20/2023, did have a postoperative MCA infarct resulting in R-sided weakness, dysphagia, dysarthria. Also with a history of type 2 diabetes, COPD, CAD, hypertension, hyperlipidemia, heart failure with preserved ejection fraction, and MANISH. Patient was transferred to [facility] on 04/08/2023 for inpatient rehab from [facility]. Was sent to the ER on 04/23/2023 [...] [facility] who recommended that we could start anticoagulation based on stable CT images. Apparently the patient had gone into A-fib with RVR after his surgery at [facility], anticoagulation was not started because of his recent stroke. He tolerated anticoagulation here in the hospital. Patient was diuresed intravenously because of concern for heart failure, he was switched back to oral Lasix before being discharged from hospital Patient discharged back to [facility]. Allergies Flonase (Nosebleed) penicillin (Rash) Consults No [...] as needed as needed for cough. insulin jfqolzsf83 unit(s) Subcutaneous daily before supper. insulin isophane (NPH)38 unit(s) Subcutaneous every day. metoprolol (metoprolol tartrate 37.5 mg oral tablet)1 tab(s) Nasogastric two (2) times a day. multivitamin with minerals (Centrum)1 tab(s) Nasogastric once a day. lzewymnpvifr52 Milligram Nasogastric once a day. polyethylene glycol [...] patch)2 patch(es) Topical once a day. magnesium srroshkgi61 Milliliter Nasogastric every 6 hours as needed [...] at bedtime. Follow Up Follow Up with [facility], Acute Rehab, When Within 1-2 days Follow Up with ALYSON GALVEZO When Within 1-2 days Where: [facility] [address] [place] [address]- [phone] Business (1) Follow Up Appointments No qualifying [...] URMILA GARCÍA MD on 04/27/2023 04:33 PM [facility]Xumpvudi72-64-4529 Note ORIGINAL EXAMINATION: ONE XRAY VIEW OF [...] Date: 04/27/2023 10:19:36 AM Ordering Provider: URMILA COONEYWexner Medical CenterRkehmwbs66-45-6597 Note Date of Service 04/26/2023 Chief Complaint Abdominal pain, shortness of breath Subjective 62-year-old male with a past medical history of status post AVR at [facility] on 03/20/2023, did have a postoperative MCA infarct resulting in R-sided weakness, dysphagia, dysarthria. Also with a history of type 2 diabetes, COPD, CAD, hypertension, hyperlipidemia, heart failure with preserved ejection fraction, and MANISH. Patient was transferred to [facility] on 04/08/2023 for inpatient rehab from [facility]. Was sent to the ER on 04/23/2023 [...] is not new since being discharged from [facility]. No hemorrhage. Will start anticoagulation due [...] diet recommendations that he was receiving at [facility] Recent left MCA infarct resulting in right-sided weakness, dysarthria, dysphagia. Repeat CT head demonstrating subacute posterior left frontal lobe infarct, this is not new since being discharged from [facility]. Due to history of postoperative paroxysmal A-fib, will start anticoagulation. Recent AVR at [facility], did have some postoperative A-fib. Continue amiodarone. [...] by KIEL SAINZ on 04/26/2023 12:51 PM [facility] HospitalMjmgpiti26-23-5620 Respiratory therapy Hospital Progress note Respiratory Therapy [...] by WILLEM Rubio on 04/26/2023 07:36 AM [facility] HospitalQbpdxyde10-53-3724 NoteATRIAL FIBRILLATION CONSIDER ANTERIOR INFARCT Electronic Signature: DANIELE JAMES MD 04/27/2023 22:39:[address] [place] [address] 03-12-2024 Note ORIGINAL EXAMINATION: CT OF THE [...] Sign Date: 04/25/2023 4:14:42 PM Ordering Provider: [facility]03-12-2024 Note Date of Service 04/25/2023 Chief Complaint weakness Subjective 62-year-old male with a past medical history of status post AVR at [facility] on 03/20/2023, did have a postoperative MCA infarct resulting in R-sided weakness, dysphagia, dysarthria. Also with a history of type 2 diabetes, COPD, CAD, hypertension, hyperlipidemia, heart failure with preserved ejection fraction, and MANISH. Patient was transferred to [facility] on 04/08/2023 for inpatient rehab from [facility]. Was sent to the ER on 04/23/2023 [...] diet recommendations that he was receiving at [facility] Recent left MCA infarct resulting in right-sided weakness, dysarthria, dysphagia. Repeat CT head to evaluate petechial hemorrhage, if stable will start Eliquis. Recent AVR at [facility], did have some postoperative A-fib. Continue amiodarone. [...] by KIEL SAINZ on 04/25/2023 01:17 PM [facility] HospitalIcjeimmq39-16-8377 Surgery Hospital Progress note Date of Service [...] to small bowel obstruction. Patient previously in [facility] rehabilitation secondary to patient's severe aortic stenosis statuspost AVR with ascending repair on 06/2023 at [facility] with postop left MCA infarct resulting in [...] his diet that he was receiving at [facility] which appears to be minced/moist with [...] by MIC LA on 04/25/2023 08:16 AM [facility] HospitalYzqzfpre27-74-1698 Surgery Hospital Progress note Date of Service [...] to small bowel obstruction. Patient previously in [facility] rehabilitation secondary to patient's severe aortic stenosis statuspost AVR with ascending repair on 06/2023 at [facility] with postop left MCA infarct resulting in [...] his diet that he was receiving at [facility] which appears to be minced/moist with [...] by MIC LA on 04/25/2023 08:16 AM [facility] HospitalYkivtvdn66-35-2700 Note Date of Service 04/24/2023 Chief Complaint weakness Subjective 62-year-old male with a past medical history of status post AVR at [facility] on 03/20/2023, did have a postoperative MCA infarct resulting in R-sided weakness, dysphagia, dysarthria. Also with a history of type 2 diabetes, COPD, CAD, hypertension, hyperlipidemia, heart failure with preserved ejection fraction, and MANISH. Patient was transferred to [facility] on 04/08/2023 for inpatient rehab from [facility]. Was sent to the ER on 04/23/2023 [...] fraction, was on Lasix twice daily at [facility], restart this. Dysphagia, continue diet recommendations that he was receiving at [facility] Recent left MCA infarct resulting in right-sided weakness, dysarthria, dysphagia. Restart baby aspirin and statin Recent AVR at [facility], did have some postoperative A-fib. Continue amiodarone. Type 2 diabetes, started on clear liquid diet. Start Lantus that he was taking at [facility], 16 units nightly. Hold NPH. Start Humalog 5 units 3 times daily Hypertension, continue home medications Hyperlipidemia, continue statin CODE STATUS: Full code Discussed with patient at the bedside, attempted to update family over the phone, no answer. Discussed with Dr. Warren Digitally Signed by KIEL SAINZ on 04/24/2023 12:37 PM [facility] HospitalXsczpeqp92-70-1174 Note Date of Service 04/24/2023 Chief Complaint weakness Subjective 62-year-old male with a past medical history of status post AVR at [facility] on 03/20/2023, did have a postoperative MCA infarct resulting in R-sided weakness, dysphagia, dysarthria. Also with a history of type 2 diabetes, COPD, CAD, hypertension, hyperlipidemia, heart failure with preserved ejection fraction, and MANISH. Patient was transferred to [facility] on 04/08/2023 for inpatient rehab from [facility]. Was sent to the ER on 04/23/2023 [...] fraction, was on Lasix twice daily at [facility], restart this. Dysphagia, continue diet recommendations that he was receiving at [facility] Recent left MCA infarct resulting in right-sided weakness, dysarthria, dysphagia. Restart baby aspirin and statin Recent AVR at [facility], did have some postoperative A-fib. Continue amiodarone. Type 2 diabetes, started on clear liquid diet. Start Lantus that he was taking at [facility], 16 units nightly. Hold NPH. Start Humalog 5 units 3 times daily Hypertension, continue home medications Hyperlipidemia, continue statin CODE STATUS: Full code Discussed with patient at the bedside, attempted to update family over the phone, no answer. Discussed with Dr. Warren Digitally Signed by KIEL SAINZ APRN-TODD on 04/24/2023 12:37 PM [facility] HospitalEfmugxkc26-29-5115 Note* Exam Date Time Procedure Performing Provider Status 04/24/23 5:13 PM Echocardiogram, Adult - CV Auth (Verified) [facility] 03-11-2024 Miscellaneous Notes* Telephone Encounter - Lynda Horn - 04/24/2023 3:21 PM EDT Contacted patient via Phone to schedule appointment; no answer -VMM left requesting for a return phone call. Mailing sent to the patient. Lynda Horn November 07, 2022 11:53 AM [facility] Note Date of Service 04/24/2023 Chief Complaint weakness Subjective 62-year-old male with a past medical history of status post AVR at [facility] on 03/20/2023, did have a postoperative MCA infarct resulting in R-sided weakness, dysphagia, dysarthria. Also with a history of type 2 diabetes, COPD, CAD, hypertension, hyperlipidemia, heart failure with preserved ejection fraction, and MANISH. Patient was transferred to [facility] on 04/08/2023 for inpatient rehab from [facility]. Was sent to the ER on 04/23/2023 [...] fraction, was on Lasix twice daily at [facility], restart this. Dysphagia, continue diet recommendations that he was receiving at [facility] Recent left MCA infarct resulting in right-sided weakness, dysarthria, dysphagia. Restart baby aspirin and statin Recent AVR at [facility], did have some postoperative A-fib. Continue amiodarone. Type 2 diabetes, started on clear liquid diet. Start Lantus that he was taking at [facility], 16 units nightly. Hold NPH. Start Humalog 5 units 3 times daily Hypertension, continue home medications Hyperlipidemia, continue statin CODE STATUS: Full code Discussed with patient at the bedside, attempted to update family over the phone, no answer. Discussed with Dr. Warren Digitally Signed by KIEL SAINZ on 04/24/2023 12:37 PM [facility] HospitalZhzcanhp83-06-6206 Note Date of Service 04/24/2023 Reason for [...] RN, Skin Team on 04/24/2023 11:26 AM [facility] HospitalGxxoucpd08-06-4863 Note ORIGINAL EXAMINATION: ONE SUPINE XRAY VIEW(S) [...] Date: 04/24/2023 11:17:01 AM Ordering Provider: ARIA MCALLISTERSouthwest General Health CenterQledgcjc18-03-2832 Surgery Hospital Progress note Date of Service [...] post recent aortic valve replacement at the [facility] with postoperative stroke who presents with [...] RICHARD ARSHAD MD on 04/24/2023 08:07 AM [facility] HospitalDfdgsejr25-24-4835 Note ORIGINAL EXAMINATION: ONE SUPINE XRAY VIEW(S) [...] Date: 04/23/2023 7:50:33 PM Ordering Provider: ALYSON SheehanLicking Memorial HospitalObydgkzi11-59-9084 Note ORIGINAL EXAMINATION: ONE SUPINE XRAY VIEW(S) [...] Date: 04/23/2023 6:05:14 PM Ordering Provider: ALYSON WARRENMansfield HospitalZnhjxhth44-88-9044 Respiratory therapy Hospital Progress note Respiratory Therapy [...] WILLEM Downey RRT on 04/23/2023 02:20 PM [facility] HospitalKkgowzse26-54-8504 History and physical note [facility] Medicine[facility] Physical Code Status: Full Code Chief Complaint Chief Complaint: Per ems and patient complaints of severe abdominal pain and fevers since Monday. (04/23/23 05:46:00) History of present illness: 62-year-old gentleman with a past medical history of severe aortic stenosis s/p AVR with ascending repair on 03/20/2023 at [facility], postop left MCA infarct resulting in left-sided weakness and right upper extremity weakness as well as dysphagia/dysarthria. Patient also with history of type 2 diabetes mellitus, morbid obesity, COPD, CAD, bipolar, hypertension, hyperlipidemia, MANISH, diastolic CHF. After patient's aortic valve replacement he was transferred to [facility] for inpatient rehab on 04/08/2023. Patient was later sent to the emergency department for evaluation of abdominal pain and fevers. States that his last bowel movement was around 4 to 5 days ago and his symptoms have been progressing since that time. Patient also states that he is typically not on oxygen but has been on 2 L nasal cannula at [facility] since yesterday. On presentation the ED he [...] AVR with ascending repair on 03/20/2023 at [facility] 8. Postop left MCA infarct resulting in [...] proBNP is up from 621->1670 from at [facility] Will give dose of IV lasix 40 mg and monitor response given NPO status at this time Defer further IVF currently given volume status Echocardiogram given patient's new onset atrial fibrillation as well as moderate pericardial effusion on CT, hx of AVR Continue monitoring electrolytes closely given NPO status and diuretic Digitally Signed by ALYSON WARREN DO on 04/23/2023 12:11 PM [facility] HospitalBbinsdxq34-19-3861 Surgery Consult note Date of Service 04/23/2023 Reason for Consultation SBO Referring Physician Emergency department History of Present Illness This is a split shared visit between myself and Dr. Arshad This patient is a 62-year-old male with a past medical history significant for CVA with speech and right-sided deficits, morbid obesity, and hypertension who presented to the [facility] emergency department with complaints of abdominal pain with associated fevers that has been ongoing for thelast 4-5 days. Of note, he is currently residing at [facility] for rehabilitation following a stroke.CT scan imaging [...] who presented to the emergency department (from [facility]) on 04/23/2023 with concerns of diffuse abdominal [...] q4h, PRN nystatin 100,000 units/mL oral suspension, 967469 unit(s)= 5 mL, Oral, QID pantoprazole, 40 [...] by ETHAN BOLES on 04/23/2023 10:46 AM [facility] HospitalVmrvgzmc85-84-2951 Surgery Consult note Date of Service 04/23/2023 Reason for Consultation SBO Referring Physician Emergency department History of Present Illness This is a split shared visit between myself and Dr. Arshad This patient is a 62-year-old male with a past medical history significant for CVA with speech and right-sided deficits, morbid obesity, and hypertension who presented to the [facility] emergency department with complaints of abdominal pain with associated fevers that has been ongoing for thelast 4-5 days. Of note, he is currently residing at [facility] for rehabilitation following a stroke.CT scan imaging [...] who presented to the emergency department (from [facility]) on 04/23/2023 with concerns of diffuse abdominal [...] q4h, PRN nystatin 100,000 units/mL oral suspension, 013155 unit(s)= 5 mL, Oral, QID pantoprazole, 40 [...] by ETHAN BOLES on 04/23/2023 10:46 AM [facility] HospitalGgziefpl78-19-3060 Surgery Consult note Date of Service 04/23/2023 Reason for Consultation SBO Referring Physician Emergency department History of Present Illness This is a split shared visit between myself and Dr. Arshad This patient is a 62-year-old male with a past medical history significant for CVA with speech and right-sided deficits, morbid obesity, and hypertension who presented to the [facility] emergency department with complaints of abdominal pain with associated fevers that has been ongoing for thelast 4-5 days. Of note, he is currently residing at [facility] for rehabilitation following a stroke.CT scan imaging [...] who presented to the emergency department (from [facility]) on 04/23/2023 with concerns of diffuse abdominal [...] q4h, PRN nystatin 100,000 units/mL oral suspension, 743466 unit(s)= 5 mL, Oral, QID pantoprazole, 40 [...] by ETHAN BOLES on 04/23/2023 10:46 AM [facility] HospitalQbllqreb90-09-9554 Note ORIGINAL EXAMINATION: CT OF THE ABDOMEN [...] Date: 04/23/2023 9:05:46 AM Ordering Provider: PRAKASH [facility]03-10-2024 Note ORIGINAL EXAMINATION: ONE XRAY VIEW OF [...] Date: 04/23/2023 7:38:17 AM Ordering Provider: [facility]24 NoteSINUS RHYTHM CONSIDER ANTERIOR INFARCT ABNORMAL T, CONSIDER ISCHEMIA, LATERAL LEADS Electronic Signature: LILY JEFFERSON DO 04/23/2023 06:34:03[facility] 03-10-2024 Note [facility] ED Transition Communication Entered On: 04/23/2023 4:12 EDT Performed On: 04/23/2023 4:05 EDT by Estelle Clemons LPN [facility] ED Transition Communication Code Status Order Detail : Full code [facility] Admission Diagnosis : AVR REPAIR, LEFT MCA [...] disorder with diagnostics. Provider Contact Number : [phone] Family Member Notified : Gissell Family Member Contact Information : [phone] Estelle Clemons LPN - 04/23/2023 4:05 EDT [...] MATTA; Reviewed Date: 04/06/2023 11:30 EST Leland MckoyEwjqoyxn13-99-3917 Nurse Progress note Pt refused dinner. did eat a cup of puerto rican yogurt with meds. continue to have nausea. took Zofran and Percocet. lethargic but awakes easily and follows simple commands. answers questions appropriately. Digitally Signed by THOMAS Quintanilla on 04/21/2023 06:01 PM [facility] MckoyRegfmqmp14-70-1024 Nurse Progress note Nursing GG Entered On: [...] THOMAS Vela on 04/21/2023 11:31 AM [facility] Ujeudfks01-45-4478 Nurse Progress note Clinicals faxed to [employer] and fax confirmation was received. Digitally Signed by THOMAS Davenport on 04/21/2023 09:19 AM [facility] Bacuepai58-93-6831 Note Subjective Patient tells me he is [...] or bladder distention Neurological: Dysarthria, unchanged VITALS JsayitSmlnHUNgbwePEPbM3VCS1AqpaCp(kg) 04/19 21:00----73--93--41760.6 04/19 17:49----72------07170.6 04/19 17:29----552139WJ37/26214.6 04/19 14:56----476562FQ99/16339.2 04/19 09:46----152647QT 24 Hr Tmax: 36.6 at 04/19 07:55 [...] 2 mL, Inhalation, qDayRT, 1st dose location: [place] [address], 04/07/23 18:26:00 EST bumetanide (Bumex) Start: 04/18/23 [...] Problems (10) Acute ischemic left MCA stroke (5718118239) Aortic stenosis with bicuspid valve (969445042) Bipolar (126969726) Chronic back pain greater than three months duration (3566450458) COPD (chronic obstructive pulmonary disease) (03287867) HLD (hyperlipidemia) (89321367) HTN (hypertension) ([id number]) Morbid obesity (391232013) Obesity ([id number]-W7G9952H9X3W) Sleep apnea ([id number]) ASSESSMENT/PLAN: Severe aortic stenosis status post aortic [...] MINER DO on 04/23/2023 12:27 PM [facility] MckoyPiqrmzts08-07-8684 Physical medicine and rehab Progress note Rehab Note Chief Complaint: Seeing this patient for reevaluation therapy progress and left MCA infarct, fall History of Present Illness: Seeing this patient for reevaluation therapy progress and left MCA infarct. Patient participates in acute inpatient rehabilitation with PT, OT and ST services. 74-hrat-wcxhpnv who presented to the hospital for planned [...] Rate76(APR 18 16:02)76(APR 18 09:25)76(APR 18 09:25) BZY250(APR 19 01:33)112(APR 18 09:05)128(APR 19 01:33) DBP70(APR [...] ALLISON KHANNA on 04/20/2023 09:32 PM [facility] MckoyKzsbwuxb41-16-1782 Note Subjective Patient relates he is doing [...] or bladder distention Neurological: Dysarthria, unchanged VITALS ZivufnWgjhNZHeidlHIFmC4AHG4YlimCf(kg) 04/19 01:3336--657432XU23/00932.6 04/18 22:43----595743VD49/15412.6 04/18 22:41----389649FQ41/98789.6 04/18 20:4436.5--440105LR04/79231.2 04/18 17:29----336932MT37/75715.6 24 Hr Tmax: 36.5 at 04/18 20:44 [...] 2 mL, Inhalation, qDayRT, 1st dose location: [place] [address], 04/07/23 18:26:00 EST bumetanide (Bumex) Start: 04/18/23 [...] Problems (10) Acute ischemic left MCA stroke (7117742324) Aortic stenosis with bicuspid valve (392292994) Bipolar (947479069) Chronic back pain greater than three months duration (9871274674) COPD (chronic obstructive pulmonary disease) (16080046) HLD (hyperlipidemia) (64037959) HTN (hypertension) ([id number]) Morbid obesity (824220556) Obesity (V7522N03-1996-8Q28-W79Z-V2R8424W6Q1X) Sleep apnea (43XE747P-1AI5-1V66-U8Y6-9G45JG14GU9D) ASSESSMENT/PLAN: Severe aortic stenosis status post aortic [...] MINER DO on 04/23/2023 12:34 PM [facility] RooneyFpmgnsdl73-74-8430 Physical medicine and rehab Progress note Rehab Note Chief Complaint: Seeing this patient for reevaluation therapy progress and left MCA infarct, fall History of Present Illness: Seeing this patient for reevaluation therapy progress and left MCA infarct. Patient participates in acute inpatient rehabilitation with PT, OT and ST services. 60-nxnh-gkecqnm who presented to the hospital for planned [...] Rate76(APR 17 16:18)74(APR 17 09:18)76(APR 17 16:18) JUZ274(APR 18 00:00)100(APR 17 16:18)120(APR 17:18) DBP62(APR 18 00:00)L 56(APR 17 16:18)64(APR 17:18) Physical Exam: General: Appears chronically ill, no acute distress Respiratory: Clear decreased at bases. O2 per nasal cannula. Cardiovascular: No murmur noted Arterial: Good distal pulses Edema: 1 out of 4 pretibial edema bilaterally. No calf tenderness. Musculoskeletal: 4/5 left lower extremity strength 2/5 right lower extremity strength Normal die attaching machine tender strength left. 0 right Normal shoulder range [...] MALIA BECERRIL DO on 04/19/2023 02:[address] [facility]rxrwuuq13-24-5110 Physical medicine and rehab Progress note Rehab Note Chief Complaint: Seeing this patient for reevaluation therapy progress and left MCA infarct, fall History of Present Illness: Seeing this patient for reevaluation therapy progress and left MCA infarct. Patient participates in acute inpatient rehabilitation with PT, OT and ST services. 06-jizo-uxcbnwk who presented to the hospital for planned [...] Heart Rate76(APR 17 16:18)74(APR 17 09:18)76(APR 17:18) JOT598(APR 18 00:00)100(APR 17:18)120(APR 17:18) DBP62(APR 18 00:00)L 56(APR 17:18)64(APR 17:18) Physical Exam: General: Appears chronically ill, no acute distress Respiratory: Clear decreased at bases. O2 per nasal cannula. Cardiovascular: No murmur noted Arterial: Good distal pulses Edema: 1 out of 4 pretibial edema bilaterally. No calf tenderness. Musculoskeletal: 4/5 left lower extremity strength 2/5 right lower extremity strength Normal die attaching machine tender strength left. 0 right Normal shoulder range [...] BECERRIL DO on 04/19/2023 02:51 PM [facility] MckoyMgcwyuko00-31-9205 Note Subjective Patient reports he is doing [...] tenderness, or bladder distention Neurological: Dysarthria VITALS HxgtxzNhcgOBRahavQBTmE6GCS0JctjQn(kg) 04/18 00:15----431746--81/52766.6 04/18 00:0036.2--597646--16/56193.6 04/17 23:54 RA03/36510.6 04/17 16:18----214200 1.0L/m03/75978.2 04/17 12:5836.7--771274--38/72410.6 24 Hr Tmax: 36.7 at 04/17 12:58 [...] 2 mL, Inhalation, qDayRT, 1st dose location: [place] [address], 04/07/23 18:26:00 EST bumetanide (Bumex) Start: 04/18/23 [...] Problems (10) Acute ischemic left MCA stroke (6803742171) Aortic stenosis with bicuspid valve (940913549) Bipolar (865820682) Chronic back pain greater than three months duration (6255037331) COPD (chronic obstructive pulmonary disease) (51214436) HLD (hyperlipidemia) (68050509) HTN (hypertension) ([id number]) Morbid obesity (802120063) Obesity (L6852B24-2328-4J11-E02O-O3D8228W3G1E) Sleep apnea (93RJ700I-9TP9-4U69-R0T6-2D03RM06DF0N) ASSESSMENT/PLAN: Severe aortic stenosis status post aortic [...] MINER DO on 04/23/2023 12:35 PM Leland [id number] Physical medicine and rehab Progress note Date [...] MALIA BECERRIL DO on 04/18/2023 11:[address] [id number] Note REFERRING PHYSICIAN: Malia Becerril DO. CONSULTING PSYCHOLOGIST: Eitan Baeza, PhD. REASON FOR REFERRAL: Psychological exam and treatment. HISTORY OF PRESENT ILLNESS: Mr. Catherine is a 62-year-old white male admitted to [facility] from [facility] after undergoing elective aortic valve replacement.Unfortunately, postoperatively, [...] weakness. Still on a modified diet with waezjtuv-ch-xzyyri dysphagia and dysarthria. He has visualsymptoms as well as headaches. He is on oxygen at 2 liters per minute. He has a Zazueta catheter. Cognitively, he reports mild difficulties with attention and memory. More significant problems withword finding, aggravated by the dysarthria. 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 Mr. Catherine lives outside of [place] with his Shadia and daughter Aplpe. He has 6 children, 5 adopted. 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 He has a high school diploma. CONCLUSIONS: [...] 30 minutes EITAN BAEZA, PhD SUSHIL/NIKKY JOB#: [id number] DICTATION ID#: [id number] Digitally Signed by EITAN BAEZA PhD on 04/17/2023 01:[address] [facility] [id number] Miscellaneous Notes* Telephone Encounter - Bhavani Juan RN - 04/13/2023 9:50 AM EST Ya from [facility] from pt's secondary insurance asking for pt's discharge instructions from [facility] on 04/07. She states pt had a [...] medical records phone number. documented in this encounterSalem City Hospital02-26-[facility]24 Physical medicine and rehab Consult note INPATIENT REHAB HISTORY AND PHYSICAL CONSULTATION DATE OF ADMISSION: 04/07/2023 CC: AVR ascending repair, CVA Admission History and Physical HISTORY OF PRESENT ILLNESS: This is a 62-year-old male admitted to [facility] from [facility] for planned surgery AVR and ascending [...] Rate62(APR 09 23:23)62(APR 09 08:16)62(APR 09 08:16) CSE095(APR 09 23:23)124(APR 09 23:23)138(APR 09 08:05) DBP62(APR [...] reviewed. 36hr Labs 04/09 2246 Blood Glucose, Qvvwbfztb702M Blood Glucose, Koibjxjpi225R 04/09 1738 Blood Glucose, Hayabhzxw505F Blood Glucose, Fwmlxswff890X 04/09 1201 Blood Glucose, Piqstectu087H Blood Glucose, Oavdlwnmr961U Blood Glucose TSee Flowsheet 04/09 0805 Blood Glucose, Nrvnumdhg933F Blood Glucose, Dxefwaivu754I Blood Glucose TSee Flowsheet 04/08 2221 Blood Glucose, Ndeclxijx993R Blood Glucose, Tvrsmaryx704S 04/08 1706 Blood Glucose, Azwqaohum417F Blood Glucose, Iwlvftgiq806D Blood Glucose TSee Flowsheet ASSESSMENT AND PLAN: [...] will follow during acute rehabilitation [facility] with the goal [...] BENJAMIN MINER DO on 04/13/2023 09:[address] [facility] [id number] Evaluation + Plan noteExtracted from: Title:Clinical Document Author:JESUS MANUEL MELENDREZ FRAMEMAN-NOODLE PRESS OPERATOR Date:04/08/23 Acute Inpatient Rehab Histor y and Physical Date of Service: 12/07/2023 Date of Admission: 12/06/2023 Attending Physician: Dr. Becerril [employer] 1.2 right body involved, left brain CVA Etiologic Diagnosis Left MCA infarct History of Present Illness This is a 62-year-old male admitted to [facility] from [facility] for planned surgery AVR and ascending [...] was deemed medically stable and transferred to [facility] for physical and occupational therapy [...] with family, first- floor set up. Primary Conveyor Loader: Self. Safe place to go: Yes. Lives [...] Rate76(APR 07 21:48)76(APR 07 21:48)76(APR 07 21:48) ILI998(APR 08 00:33)112(APR 08 00:33)132(APR 07 18:00) DBP60(APR 08 00:33)60(APR 07 18:00)60(APR 07 18:00) 36hr Labs 04/07 2138 Blood Glucose, Qucqaksrt194L Blood Glucose, Zlzlqindc126Q Assessment/Plan - Aortic stenosis: Patient underwent elective AVR at [facility]. - CVA: Post extubation, patient developed [...] This is a 62-year-old male admitted to [facility] from [facility] for planned surgery AVR and ascending [...] was deemed medically stable and transferred to [facility] for physical and occupational therapy [...] with family, first- floor set up. Primary Conveyor Loader: Self. Safe place to go: Yes. Lives [...] Rate76(APR 07 21:48)76(APR 07 21:48)76(APR 07 21:48) BYO960(APR 08 00:33)112(APR 08 00:33)132(APR 07 18:00) DBP60(APR 08 00:33)60(APR 07 18:00)60(APR 07 18:00) 36hr Labs 04/07 2138 Blood Glucose, Jafgficpn883N Blood Glucose, Ssnxsfkqw050V Assessment/Plan - Aortic stenosis: Patient underwent elective AVR at [facility]. - CVA: Post extubation, patient developed [...] MELENDREZ APRN-TODD on 04/08/2023 01:03 PM Leland [id number] History of Past illness Narrative* Problem Noted [...] of this encounter (statuses as of 04/13/2023) [facility] History of Past illness Narrative* Problem [...] of this encounter (statuses as of 04/24/2023) [facility] History of Past illness Narrative* Problem [...] of this encounter (statuses as of 05/02/2023) [facility] History of Past illness Narrative* Problem [...] of this encounter (statuses as of 05/19/2023) [facility] of Past illness Narrative* Problem [...] of this encounter (statuses as of 05/22/2023) [facility] of Past illness Narrative* Problem [...] of this encounter (statuses as of 05/22/2023) [facility] History of Past illness Narrative* Problem [...] of this encounter (statuses as of 05/24/2023) [facility] of Past illness Narrative* Problem [...] of this encounter (statuses as of 05/24/2023) [facility] of Past illness Narrative* Problem [...] of this encounter (statuses as of 05/24/2023) [facility] of Past illness Narrative* Problem [...] of this encounter (statuses as of 05/25/2023) [facility] of Past illness Narrative* Problem [...] of this encounter (statuses as of 05/25/2023) [facility] of Past illness Narrative* Problem [...] of this encounter (statuses as of 05/25/2023) [facility] of Past illness Narrative* Problem [...] of this encounter (statuses as of 05/26/2023) [facility] of Past illness Narrative* Problem [...] of this encounter (statuses as of 05/29/2023) [facility] of Past illness Narrative* Problem [...] of this encounter (statuses as of 05/30/2023) [facility] of Past illness Narrative* Problem [...] of this encounter (statuses as of 06/02/2023) [facility] Miscellaneous Notes* Telephone Encounter - July Perez LPN - 03/21/2023 2:07 PM EST Detailed VM left on pt's identified voicemail of information below. July Perez LPN * Telephone Encounter - Bhavani Juan RN - 03/18/2023 8:02 AM EST LM for pt to return call * Telephone Encounter - Bhavani Juan RN - 03/18/2023 8:01 AM EST ----- Message from Angela Schmid APRN.NOODLE PRESS OPERATOR sent at 03/17/2023 11:37 AM EST ----- Can please let patient know that repeat labs are improved. Angela Schmid APRN.NOODLE PRESS OPERATOR documented in this encounterSalem City Hospital02-05-2024 History of Past illness Narrative* Problem Noted Date Diagnosed Date Resolved Date Lactic acidosis 03/20/2023 03/21/2023 Tendinitis of left wrist 05/14/201308/2022 Atrial septal defect and mitral stenosis 11/30/2012 documented as of this encounter (statuses as of 03/22/2023) [facility] Miscellaneous Notes* Telephone Encounter - Lilia Parker RN - 03/19/2023 5:31 PM EST Patient calling regarding medication problem. Scheduled for cardiac surgery tomorrow, 03/20. Patient accidentally took Losartan this evening which he was previously told to hold prior to surgery. Conferenced to [facility] monorail charger operator, Ivy, to speak with provider library acquisitions technician for CTS, patient of Dr. Alcocer. documented in this encounterSalem City Hospital02-01-2024 History of Present illness Narrative* Lilia [...] with any further questions documented in this encounterSalem City Hospital02-01-2024 History of Present illness Narrative* Scarlet [...] stenosis initially followed by Dr. Montgomery in [place] and transitioned to care in [place] with ourcardiology team. He had a recent [...] 4.5 cm. The patient also saw a rewinder operator helper who debrided his noninfected right tibial wound [...] DVI today and MARY of 0.72 cm2. [facility] LMT: _ The LMT is normal. [...] Diabetic Neuropathy, With Long-Term Current Use of Insulin([facility]) Hyperlipidemia Htn (Hypertension) Ddd (Degenerative Disc Disease), Lumbar Bipolar 1 Disorder ([facility]) Morbid Obesity With Bmi of 50.0-59.9, Adult ([facility]) Lvh (Left Ventricular Hypertrophy) Chronic Bronchitis, Simple ([facility]) Hypogonadism Male Ulnar Neuropathy of Left Upper Extremity Microalbuminuria Nonrheumatic Aortic Valve Stenosis Type 2 Diabetes Mellitus With Microalbuminuria, With Long-Term Current Use of Insulin ([facility]) Nocturnal Oxygen Desaturation Gerd Without Esophagitis Peripheral Vascular Disease ([facility]) Chronic Back Pain Chronic Obstructive Pulmonary Disease ([facility]) History of Disease Morbid Obesity ([facility]) Pneumonia Right Flank Pain Discharge Planning Issues Pre-Op Testing Chronic Diastolic Heart Failure ([facility]) PAST MEDICAL HISTORY Diagnosis Date Anxiety Aortic valve stenosis, nonrheumatic Atrial septal defect and mitral stenosis Bicuspid aortic valve Bipolar 1 disorder (HCC) Chronic obstructive pulmonary disease (COPD) (HCC) Coronary artery disease Degenerative disc disease sees Dr. Sellers Diabetic neuropathy (HCC) DM (diabetes mellitus) ([facility]) HTN (hypertension) Hyperkalemia Hyperlipidemia Hypogonadism male LVH (left ventricular hypertrophy) Morbid obesity ([facility]) MANISH on CPAP Pain management Dr. [...] Disease Brother other (Myocardial infarc) Brother Fatal [place] No Ocular Disease No Family History Social [...] STOCKINGS 30-40 MM. DX: EDEMA Blood-Glucose Meter [facility] Dispense 1 kit Medication Comments documented by [...] Impression IMPRESSION: Stable exam without acute findings. Global Program Manager: PSCB Transcribe Date/Time: Oct 26 2022 3:48P [...] 2:39 PM Pager/Contact #: documented in this encounterSalem City Hospital02-01-2024 History and physical note * Lilia [...] STOCKINGS 30-40 MM. DX: EDEMA Blood-Glucose Meter [facility] Dispense 1 kit losartan (COZAAR) 25 mg [...] Disease Brother other (Myocardial infarc) Brother Fatal [place] No Ocular Disease No Family History PAST MEDICAL HISTORY Diagnosis Date Anxiety Aortic valve stenosis, nonrheumatic Atrial septal defect and mitral stenosis Bicuspid aortic valve Bipolar 1 disorder (HCC) Chronic obstructive pulmonary disease (COPD) ([facility]) Coronary artery disease Degenerative disc disease sees Dr. Sellers Diabetic neuropathy ([facility]) DM (diabetes mellitus) ([facility]) HTN (hypertension) Hyperkalemia Hyperlipidemia Hypogonadism male LVH (left ventricular hypertrophy) Morbid obesity ([facility]) MANISH on CPAP Pain management Dr. 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 Dario Santiago from Medical Claims Representative: [facility] Transcribe Date/Time: Nov 24 2022 6:53P Dictated [...] and Physical dated 03/16/2023 documented in this encounterSalem City Hospital02-01-2024 History of Present illness Narrative* Shlomo Alcocer MD - 03/16/2023 1:02 PM EST Images from the original note were not included. Thoracic and Cardiovascular Surgery [facility] SURGICAL STAFF CONSULT Patient Type: CONSULT Visit to determine Surgery: YES PCP: Alyson Arthur [address] [facility] [place] [address] Referring Physician: Benjamin Pike [address] [facility] [id number] HPI: Mr. Kiel Catherine is a seen [...] letter. Shlomo Alcocer MD documented in this encounterSalem City Hospital02-01-2024 History of Present illness Narrative* Kiel Barnes MD - 03/16/2023 9:15 AM EST Images from the original note were not included. Heart and Vascular [facility] Department of Cardiovascular Medicine SECTION OF CLINICAL CARDIOLOGY OUTPATIENT VISIT DATE March 16, 2023 OUTPATIENT VISIT TYPE CONSULTATION PRIMARY CARE PHYSICIAN: Alyson Arthur [address] [place] [address] REFERRING PHYSICIAN Shlomo Alcocer [address] [facility] [address] CHIEF COMPLAINT: Preaortic valve replacement HISTORY OF [...] Diet:Regular Exercise: Nothing at this time. 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 Currently on Disability. PAST MEDICAL HISTORY Diagnosis Date Anxiety Aortic valve stenosis, nonrheumatic Atrial septal defect and mitral stenosis Bicuspid aortic valve Bipolar 1 disorder ([facility]) Chronic obstructive pulmonary disease (COPD) ([facility]) Coronary artery disease Degenerative disc disease sees Dr. Sellers Diabetic neuropathy ([facility]) DM (diabetes mellitus) ([facility]) HTN (hypertension) Hyperkalemia Hyperlipidemia Hypogonadism male LVH (left ventricular hypertrophy) Morbid obesity ([facility]) MANISH on CPAP Pain management Dr. [...] Disease Brother other (Myocardial infarc) Brother Fatal [place] No Ocular Disease No Family History ALLERGIES: [...] antegrade flow noted. Technologist: Kristal Burr RVT [facility] Ordering physician: LEANDRO FOSTER Interpreting physician: BURT [...] was interpreted by Dr. Dario Santiago from Medical Claims Representative: [facility] Transcribe Date/Time: Nov 24 2022 6:53P Dictated [...] which seems appropriate. Follow-up with his local software packager routinely. Thank you for allowing me to participate in the care of your patient. Please reach out to me at anytime with questions or concerns. Kiel Barnes MD, MS, [facility] Co-Director, [facility] contract modeler, [facility] of Medicine of [facility] Section of Clinical Cardiology, Department of Cardiovascular Medicine Nora Garcia [facility] Heart, Vascular, and Thoracic [facility], [address] [place] [address], [place] [address] Office Office Appointments: [phone] I personally interviewed, confirmed and edited the above information as obtained by others. documented in this encounterSalem City Hospital12-15-2023 Miscellaneous Notes* Telephone Encounter - Janki [...] 02/21/2023 Janki Vale RN. documented in this encounterSalem City Hospital11-27-2023 Miscellaneous Notes* Telephone Encounter - Bebeto [...] notify patient. Ya Granger documented in this encounterSalem City Hospital11-16-2023 Miscellaneous Notes* Telephone Encounter - Bhavani [...] you. Bhavani Juan RN. documented in this encounterSalem City Hospital11-14-2023 Miscellaneous Notes* Telephone Encounter - Leandro Foster APRN.CNP - 12/27/2022 4:17 PM EST MULTI DISCIPLINARY HIGH RISK CARDIAC / AVR TEAM Members present: Dr. Donaldson, Dr. Calzada, Dr. Parra, Dr. Pike, Dr. Rosa, Dr. Izquierdo, Dr. Valente, Dr. Monroy, Malick Foster, PRICILA, NOODLE PRESS OPERATOR, Fanny Her APRN, NOODLE PRESS OPERATOR, Gill Strickland PA, Dario Reis APRN, NOODLE PRESS OPERATOR, Dario Colbert, TODD, DARRYL Keene, Dillon العلي PA-C. Presenting Physician: Dr. Pike PATIENT NAME: Kiel Catherine DATE: December 27, 2022 Outcome: Kiel Catherine 's history and imaging were reviewed by the physicians in attendance. The collaborative recommendation would be Dr. Pike to discuss case with Dr. Shlomo Alcocer at [facility], given high surgical risk albeit surgery is optimally best option over TAVR. These recommendations were communicated to the patient by myself. Leandro Foster APRN.CNP 12/27/22 documented in this encounterSalem City Hospital11-14-2023 Miscellaneous Notes* Telephone Encounter - Adenike [...] injury Estelle Cardenas DPM documented in this encounterSalem City Hospital11-06-2023 History of Present illness Narrative* Benjamin Pike MD - 12/19/2022 2:36 PM EST PRIMARY CARE PHYSICIAN: Alyson rAthur [address] [place] [address] Subjective Chief Complaint Patient presents with: Valvular [...] stenosis initially followed by Dr. Montgomery in [place] and transitioned to care in [place] with ourcardiology team. He had a recent [...] 4.5 cm. The patient also saw a rewinder operator helper who debrided his noninfected right tibial wound [...] stenosis Bicuspid aortic valve Bipolar 1 disorder ([facility]) Chronic obstructive pulmonary disease (COPD) ([facility]) Coronary artery disease Degenerative disc disease sees Dr. Sellers Diabetic neuropathy ([facility]) DM (diabetes mellitus) ([facility]) HTN (hypertension) Hyperkalemia Hyperlipidemia Hypogonadism male LVH (left ventricular hypertrophy) Morbid obesity ([facility]) MANISH on CPAP Pain management Dr. [...] Disease Brother other (Myocardial infarc) Brother Fatal [place] No Ocular Disease No Family History Social [...] Each 11 flash glucose scanning reader (FREESTYLE ANAIH 2 READER) DMII, insulin requiring. Testing 3-5 [...] DX: EDEMA 1 Each 3 Blood-Glucose Meter [facility] Dispense 1 kit 1 Each 0 aspirin [...] mL injection (DEFINITY) INTRAVENOUS DIRECTED PRN Kathy Colbret APRN.TODD sodium chloride 0.9 % (flush) 10 mL (BD POSIFLUSH) 10 mL INTRAVENOUS DIRECTED PRN Ari Colbert APRN.NOODLE PRESS OPERATOR perflutren lipid microspheres 1.3 mL in NaCl [...] stenosis initially followed by Dr. Montgomery in [place] and transitioned to care in [place] with ourcardiology team. He had a recent [...] 4.5 cm. The patient also saw a rewinder operator helper who debrided his noninfected right tibial wound [...] MD Cardiothoracic Surgery 12/19/2022 documented in this encounterSalem City Hospital10-27-2023 Miscellaneous Notes* Telephone Encounter - JanuszkelleyBebeto [...] you. Alexandra Osborn LPN. documented in this encounterSalem City Hospital10-27-2023 Miscellaneous Notes* Telephone Encounter - Fely [...] you. Fely Cohn LPN. documented in this encounterSalem City Hospital10-23-2023 Instructions* Patient Instructions* Estelle Cardenas - [...] (or decreased sensation in your feet) a rewinder operator helper should always cut your toenails. Be Careful [...] Go to your health care provider or rewinder operator helper to treat these conditions. documented in this encounterSalem City Hospital10-23-2023 History of Present illness Narrative* Estelle [...] disorder (HCC) Chronic obstructive pulmonary disease (COPD) ([facility]) Coronary artery disease Degenerative disc disease sees Dr. Sellers Diabetic neuropathy ([facility]) DM (diabetes mellitus) ([facility]) HTN (hypertension) Hyperkalemia Hyperlipidemia Hypogonadism male LVH (left ventricular hypertrophy) Morbid obesity ([facility]) MANISH on CPAP Pain management Dr. [...] of 4 capsules daily). flash glucose sensor (All CampusYLE ANAHI 2 SENSOR) kit Change sensor every [...] STOCKINGS 30-40 MM. DX: EDEMA Blood-Glucose Meter [facility] Dispense 1 kit furosemide (LASIX) 40 mg [...] Disease Brother other (Myocardial infarc) Brother Fatal [place] No Ocular Disease No Family History Social [...] with diabetes mellitus due to underlying condition ([facility]) (S90.821A) Blister (nonthermal), right foot, initial encounter (E11.40, Z79.4) Controlled type 2 diabetes mellitus with diabetic neuropathy, with long-term current use of insulin ([facility]) PLAN: 1. History and physical examination [...] Cardenas DPM Podiatry [address] [facility] [address] Dept: [phone] Dept * Tony Dick, RN - 12/05/2022 [...] swelling to bilateral legs. documented in this encounterSalem City Hospital10-19-2023 Miscellaneous Notes* Telephone Encounter - Tammi [...] 4 additional lasix doses be sent to [facility] in [place] as he has pill packs and no additional doses to take. Patient reports he has an appointment with podiatry on Monday afternoon. * Telephone Encounter - Marley Tang LPN - 12/01/2022 11:02 AM EDT [...] with podiatry as ordered. documented in this encounterSalem City Hospital10-18-2023 History of Present illness Narrative* Pascual [...] vomiting, diarrhea. Patient does not have a rewinder operator helper. Does not have compression stockings at home, [...] stenosis Bicuspid aortic valve Bipolar 1 disorder ([facility]) Chronic obstructive pulmonary disease (COPD) ([facility]) Coronary artery disease Degenerative disc disease sees Dr. Sellers Diabetic neuropathy ([facility]) DM (diabetes mellitus) ([facility]) HTN (hypertension) Hyperkalemia Hyperlipidemia Hypogonadism male LVH (left ventricular hypertrophy) Morbid obesity ([facility]) MANISH on CPAP Pain management Dr. [...] Disease Brother other (Myocardial infarc) Brother Fatal [place] No Ocular Disease No Family History Patient [...] STOCKINGS 30-40 MM. DX: EDEMA Blood-Glucose Meter [facility] Dispense 1 kit Current Facility-Administered Medications on [...] Abs Lymph 1.00 - 4.00 k/uL 1.80 Story% % 8.0 Abs Story <0.87 k/uL 0.74 Eosin% % 0.3 Abs [...] neuropathy, with long-term current use of insulin ([facility]) - ICD9: 250.60, 357.2, V58.67, ICD10: E11.40, Z79.4 - Controlled - Continue current medications - CONSULT TO PODIATRY Pascual Bacon MD documented in this encounterSalem City Hospital10-18-2023 Miscellaneous Notes* Telephone Encounter - July [...] he had a heart cath done at [facility] yesterday 11-29-22. This was an outpt procedure. No problems after heart cath. Was not able to book with pt's provider/team. Apt has been booked. July Perez LPN documented in this encounterSalem City Hospital10-13-2023 Miscellaneous Notes* Telephone Encounter - Joan Gallardo RN - 11/25/2022 11:37 AM EDT Yen calls and requests most recent OV note from Dr. Arthur. Faxed per request to [phone]. Joan Gallardo RN * Telephone Encounter - Aminah Escudero LPN - 11/25/2022 9:12 AM EDT Completed and faxed back as requested. * Telephone Encounter - Elma Guthrie Ma - 11/24/2022 4:05 PM EDT Type of form: CPAP/BiPAP Form received via fax When form is completed, Fax form to [place] Form has been forwarded to Physician Desk: Dr. Jerson Guthrie Ma documented in this encounterSalem City Hospital10-12-2023 Miscellaneous Notes* Telephone Encounter - Liz [...] and complete this test. documented in this encounter[facility]10-12-[facility]23 History of Present illness Narrative* Jaelyn [...] 2022 TIME: 9:31 AM documented in this encounterSalem City Hospital10-09-2023 Miscellaneous Notes* Telephone Encounter - Carmen [...] Please advise. Carmen Granger documented in this encounterSalem City Hospital10-05-2023 History of Present illness Narrative* Senia Brower RPFT - 11/17/2022 2:31 PM EDT PULM FUNCTION SMARTBLOCK: Provider: Leandro Foster APRN.NOODLE PRESS OPERATOR Assisting Tech: Senia Brower RPFT Spirometry: 1 DLCO: 1 LV - Box: 1 documented in this encounterSalem City Hospital09-20-2023 Miscellaneous Notes* Telephone Encounter - Janki Vale RN - 11/02/2022 1:14 PM EDT Patient requesting CPAP order be faxed to [facility] at [phone]. Faxed as requested. Janki Vale RN documented in this encounterSalem City Hospital09-19-2023 Miscellaneous Notes* Telephone Encounter - Margi [...] to review back pain, Patient uses [facility] in [place] documented in this encounterSalem City Hospital2023 Instructions* Patient Instructions* Kayla Licea LPN [...] feel free to call our office at [phone] and ask to be transferred to General Surgery. Thank you for choosing [facility] - General Surgery. documented in this encounterSalem City Hospital2023 Nurse Note* Kayla Licea LPN - [...] 2007 Kayla Licea LPN documented in this encounterSalem City Hospital2023 History of Present illness Narrative* Tony [...] disorder (HCC) Chronic obstructive pulmonary disease (COPD) ([facility]) Coronary artery disease Degenerative disc disease sees Dr. Sellers Diabetic neuropathy ([facility]) DM (diabetes mellitus) ([facility]) HTN (hypertension) Hyperkalemia Hyperlipidemia Hypogonadism male LVH (left ventricular hypertrophy) Morbid obesity ([facility]) MANISH on CPAP Pain management Dr. [...] 2 mL 11 flash glucose scanning reader (SkuServeSTYLE ANAHI 2 READER) DMII, insulin requiring. Testing [...] DX: EDEMA 1 Each 3 Blood-Glucose Meter [facility] Dispense 1 kit 1 Each 0 Current Facility-Administered Medications Medication Dose Route Frequency Provider Last Rate Last Admin perflutren lipid microspheres 1.3 mL in NaCl (PF) 0.9% 10 mL injection (DEFINITY) INTRAVENOUS DIRECTED PRN Kathy Colbert APRN.NOODLE PRESS OPERATOR sodium chloride 0.9 % (flush) 10 mL (BD POSIFLUSH) 10 mL INTRAVENOUS DIRECTED PRN Ari Colbert APRN.NOODLE PRESS OPERATOR perflutren lipid microspheres 1.3 mL in NaCl [...] Disease Brother other (Myocardial infarc) Brother Fatal [place] No Ocular Disease No Family History REVIEW OF SYMPTOMS: The review of systems data was entered by the nurse and reviewed by ct Nursing Notes: Kayla Licea LPN 10/27/2022 3:03 [...] plan Tony Mercer PA-C documented in this encounterSalem City Hospital09-13-2023 Miscellaneous Notes* Telephone Encounter - Aminah Escudero LPN - 10/26/2022 4:13 PM EDT Patient notified. * Telephone Encounter - Alyson Arthur MD - 10/26/2022 3:56 PM EDT Let him know his xray is ok. documented in this encounterSalem City Hospital09-12-2023 History of Present illness Narrative* Martha [...] 25, 2022 3:41 PM documented in this encounterSalem City Hospital09-12-2023 Miscellaneous Notes* Telephone Encounter - Janki Vale RN - 10/25/2022 3:05 PM EDT [facility] calling regarding script received for pt's Bactroban cream today. Insurance does notcover the cream, but does cover the ointment. Pharmacy asking if provider would like to change to ointment? Please contact [place]. Thank you. documented in this encounterSalem City Hospital09-12-2023 History of Present illness Narrative* Alyson Arthur MD - 10/25/2022 2:11 PM EDT Patient presents with: Hospital Follow Up HPI: Patient presents today for office visit for Hospital follow up. Also has concerns of painful boil on upper inside of right thigh. Oozing fluid. Denies fever. Has been there about four days. Admitted into [facility] 10/09/22 Went in for shortness of breath [...] time a week. flash glucose scanning reader (SkuServeSTYLE ANAHI 2 READER) DMII, insulin requiring. Testing [...] STOCKINGS 30-40 MM. DX: EDEMA Blood-Glucose Meter [facility] Dispense 1 kit Current Facility-Administered Medications Medication [...] stenosis Bicuspid aortic valve Bipolar 1 disorder ([facility]) Chronic obstructive pulmonary disease (COPD) ([facility]) Coronary artery disease Degenerative disc disease sees Dr. Sellers Diabetic neuropathy ([facility]) DM (diabetes mellitus) ([facility]) HTN (hypertension) Hyperkalemia Hyperlipidemia Hypogonadism male LVH (left ventricular hypertrophy) Morbid obesity ([facility]) MANISH on CPAP Pain management Dr. [...] Disease Brother other (Myocardial infarc) Brother Fatal [place] No Ocular Disease No Family History Social [...] CAPSULE Alyson Arthur MD documented in this encounterSalem City Hospital09-07-2023 Miscellaneous Notes* Telephone Encounter - Aminah Escudero LPN - 10/20/2022 12:52 PM EDT Completed as requested. * Telephone Encounter - Scott Livingston PA-C - 10/20/2022 10:19 AM EDT Done Keith Livingston PA-C * Telephone Encounter - Laurel Adan Ma - 10/19/2022 2:41 PM EDT Please print Rx Called to check on PA status was transferred to [facility] medical who advised spoke to patient who did not want to go through them and only local. I verified with rep that since he has medicare he has to go through DME company or no sensor will be given. Rep advised yes has to go through DME [place]. Spoke to patient who is aware go through DME and get anahi and have to do multiple finger sticks from local pharm. Patient will call [employer] to verify account. [facility] Medical Fax * Telephone Encounter - Laurel [...] do not hear anything. [employer] Bin [id number] PCN [id number] Member number: ID [id number] * Telephone Encounter - Laurel Adan Ma - 10/06/2022 3:30 PM EDT Fax for PA received from pharmacy for anahi sensor Prior Authorization has been completed online at [employer] for anahi, will await response. [id number] Please keep encounter open until final decision has been received and documented from insurance company. Laurel Adan MA documented in this encounterSalem City Hospital09-01-2023 Miscellaneous Notes* Telephone Encounter - Laurel Adan Ma - 10/14/2022 3:23 PM EDT Please see TE that says prior auth Laurel Adan Ma * Telephone Encounter - Marzena Awad - 10/14/2022 12:25 PM EDT Kiel Catherine is calling Alyson Arthur MD today to request a prior authorization on Flash glucose sensor (FREESTYLE ANAHI 2 SENSOR KIT) Please advise [place] when approved, as patient is completely out of these sensors Patient has been identified by name and birthdate. Duration of symptoms: N/A Person calling: self Call patient at: at home [phone] (home) [phone] (cell) Was an appointment scheduled: No Closing statement: Prior Authorization Calls: Thank you for calling [facility], your call will be returned within the next 24 hours or next business day. Marzena Diamond documented in this encounterSalem City Hospital08-29-2023 Miscellaneous Notes* Telephone Encounter - Bhavani Juan RN - 10/11/2022 2:48 PM EDT Angela from [facility] calling to let Dr. Arthur and Angela Schmid know that Kiel was in [facility] from 10/08-10/11 for pneumonia. She states she will be talking to the patient on . Asked if she would have pt call in to schedule a hospital follow up within the next two weeks. documented in this encounterSalem City Hospital08-29-2023 Discharge summary Author Shanna Govea [facility] October 11, 2022 11:10am Note Date/Time October 11, 2022 11 :10am [facility] Medical Records Department [address] [place] [address] Instructions for Home/Discharge Instructions 10/11/22 1110 MR#: [id number] Acct: [id number] Name: KIEL CATHERINE Rep #:[id number] : 1960 62 From: Shanna Govea [...] Shanna Govea MD>Shanna Govea MD CC: Dr. Alyosn Arthur MD ~ Signed [facility] Work Phone: 1(956) 941-285508-29-2023 Discharge summary Author Juaquin Spear [facility] October 11, 2022 8:30am Note Date/Time October 09, 2022 3: 28pm [facility] Medical Records Department [address] [place] [address] Emergency Department Summary 10/09/22 MR#: [id number] Acct: [id number] Name: KIEL CATHERINE Rep #:[id number] 2 : 1960 62 From: Malia GOFF PCP: Dr. Alyson Arthur MD Status:ADM I N Location: MS3 [id number] <Statement entered by Juaquin Spear MD - [...] pneumonia or he has congestive heart failure. [facility] <SHELL Knox - Last Filed: 10/09/22 15:28> [facility] Medical History (Updated 10/09/22 @ 22:27 by [...] 72.5 H Lymph % (Auto) 15.5 L Story % (Auto) 9.4 Eos % (Auto) 1.2 [...] Rhythm Comments: Sinus tachycardia, rate 102 bpm, NV interval 186 ms, QRS duration 82 ms, [...] Spear MD - Last Filed: 10/09/22 23:43> [facility] Narrative Medical decision making narrative: I have [...] 72.5 H Lymph % (Auto) 15.5 L Story % (Auto) 9.4 Eos % (Auto) 1.2 [...] Discharge Plan Disposition Disposition: Acute Care Hospital [facility] Discharge Date/Time: 10/09/22 21:33 What to do if you have Problems For any increased pain, shortness of breath, bleeding, nausea or vomiting, chestpain, or any unexpected problems, contact your Primary Care Provider. Call [facility] ([phone]) or report to the closest Emergency Room. Call 911 if necessary. 10/09/222124 <Electronically signed by Malia GOFF> Cosigner Signature (if applicable): 10/11/22 0830 <Electronically signed by Monse WEIR> CC: Dr. Alyson Arthur MD ~ Signed [facility] Work Phone: 1(378) 318-873308-28-2023 History and physical note [facility] October 10, 2022 5:04pm Note Date/Time October 09, 2022 7: 01pm [facility] Medical Records Department [address] [place] [address] History & Physical Exam 10/09/22 1857 MR#: [id number] Acct: [id number] Name: KIEL CATHERINE Rep #:[id number] : 1960 62 From: Shanna Govea MD PCP: Dr. Alyson Arthur MD Status:ADM I N Location: MS3 CA061-7 [facility] Date of Service: 10/09/22 Chief Complaint: shortness of breath HPI Narrative KIEL CATHERINE, is a 62 M with a PMH as outlined who presents via the ED On 10/09/2022 with a complaint of shortness of breath. He is being worked up to get a valve replacement, of the mitral valve it appears, and was supposed to follow up at [facility] tomorrow. He started having worsening cough, increased shortness of breath and swelling of his lower extremities over the last week. He admitted to a cough and generalised weakness. REview of systems was otherwise negative. Vitals in the ED were temp of 96.5F, NV of 107, BP of 144/73 and RR [...] super morbid obesity and shortness of breath. [facility] Medical History Benign essential hypertension COPD (chronic [...] (Auto) 72.5 H, Lymph % (Auto) 15.5 L,Story % (Auto) 9.4, Eos % (Auto) 1.2, [...] CPAP nightly. He states his setting is [id number] DVT prophylaxis: Lovenox Code status: full code * Patient counseled extensively about different types of CODE STATUS including full code, DNR CCA and DNR CCA. Patient elects to be full code * Total cixs-ti-pesl: 17 mins Charges/Coding Visit Charges Inpatient E&M: 09969 Init Hosp L3 Procedures Hospitalists Procedures: 33519 Advncd Care Plan 30 Min 10/10/22 1704 <Electronically signed by Shanna Govea MD> Cosigner Signature (if applicable): CC: Dr. Shanna Govea MD; Dr. Alyson Arthur MD~ Signed [facility] Work Phone: 1(694) 767-806908-28-2023 Progress note Author [facility] October 10, 2022 5:04pm Note Date/Time October 10, 2022 12 :48pm [facility] Medical Records Department [address] [place] [address] Progress Note 10/10/22 1245 MR#: [id number] Acct: [id number] Name: KIEL CATHERINE Rep #:[id number] 1 : 1960 62 From: Shanna Govea MD PCP: Dr. Alyson Arthur MD Status:ADM I N Location: CA3 II880-6 Subjective Subjective Patient seen and examined. He [...] (Auto) 72.5 H, Lymph % (Auto) 15.5 L,Story % (Auto) 9.4, Eos % (Auto) 1.2, [...] 82.0 H, Lymph % (Auto) 9.4 L, Story % (Auto) 6.4, Eos % (Auto) 0.8, [...] CPAP nightly. He states his setting is [id number] #Nicotine dependence: counseled to quit. Still smokes about 1 pack daily. Willstart on nicotine patch 21 mg daily. DVT prophylaxis: Lovenox Code status: full code * Charges/Coding Visit Charges Inpatient E&M: 73416 Subs Hosp L2 10/10/22 1704 <Electronically signed by Shanna Govea MD> Shanna Govea MD Cosigner Signature (if applicable): CC: ~ Signed [facility] Work Phone: 1(752) 975-832808-25-2023 Miscellaneous Notes* Telephone Encounter - Radha Messer - 10/07/2022 12:19 PM EDT 2nd call: Left VM to schedule OV w/ Dr. Pike. Internal referral from Kathy Colbert APRN.CNP - Aortic valve stenosis, etiology of cardiac valve disease unspecified; Bicuspid aortic valve documented in this encounterSalem City Hospital08-23-2023 Miscellaneous Notes* Telephone Encounter - Bairon [...] times q day Please review and advise. Barion Mendoza documented in this encounterSalem City Hospital08-22-2023 Miscellaneous Notes* Telephone Encounter - Krys [...] a referral. Thank you! documented in this encounterSalem City Hospital08-21-2023 Miscellaneous Notes* Result Encounter Note - [...] a referral. Thank you! documented in this encounterSalem City Hospital08-16-2023 History of Present illness Narrative* Alyson [...] and down right leg. Had MRI in [place] but hasn't not been given results yet. [...] by mouth three times daily. Blood-Glucose Meter [facility] Dispense 1 kit Current Facility-Administered Medications Medication [...] stenosis Bicuspid aortic valve Bipolar 1 disorder ([facility]) Chronic obstructive pulmonary disease (COPD) ([facility]) Coronary artery disease Degenerative disc disease sees Dr. Sellers Diabetic neuropathy ([facility]) DM (diabetes mellitus) ([facility]) HTN (hypertension) Hyperkalemia Hyperlipidemia Hypogonadism male LVH (left ventricular hypertrophy) Morbid obesity ([facility]) MANISH on CPAP Pain management Dr. [...] Disease Brother other (Myocardial infarc) Brother Fatal [place] No Ocular Disease No Family History Social [...] six weeks for recheck. documented in this encounterSalem City Hospital07-06-2023 Miscellaneous Notes* Telephone Encounter - Angela [...] LPN * Telephone Encounter - Angela Schmid APRN.NOODLE PRESS OPERATOR - 08/17/2022 8:43 AM EDT I did [...] Nuñez. Cheyenne Alarcon LPN documented in this encounterSalem City Hospital06-30-2023 Miscellaneous Notes* Telephone Encounter - M Linwood Cabrera RN - 08/12/2022 4:06 PM EDT Patient has been identified by name and date of : Yes, Provider [place] Date 08-12-22 Time 4:07 pm Pharmacy phones [...] you. Scott Cabrera RN documented in this encounterSalem City Hospital06-28-2023 Miscellaneous Notes* Telephone Encounter - Joan Gallardo RN - 08/10/2022 9:05 AM EDT Spouse (Shweta) calls to request compression stocking order be sent to [facility]. Pended with previous diagnosis of bilateral leg edema. Last OV: 06/28/2022 Next OV: 08/29/2022 Joan Gallardo RN documented in this encounterSalem City Hospital06-26-2023 Miscellaneous Notes* Telephone Encounter - Aminah Escudero LPN - 08/08/2022 7:07 PM EDT Faxed order and last OV that discussed sleep apnea to [facility] as requested. * Telephone Encounter - Alyson Arthur MD - 08/08/2022 5:07 PM EDT Written. I used old settings. * Telephone Encounter - Elma Guthrie Ma - 08/08/2022 1:17 PM EDT Last OV that discussed MANISH was 05/20/22. Last study 07/21/16 * Telephone [...] return. Tia Arenas RN documented in this encounterSalem City Hospital06-07-2023 Miscellaneous Notes* Telephone Encounter - Janki [...] to Visit Medication Sig flash glucose sensor (SkuServeSTYLE ANAHI 2 SENSOR) kit DMII, insulin requiring. [...] time a week. flash glucose scanning reader (SkuServeSTYLE ANAHI 2 READER) DMII, insulin requiring. Testing [...] by mouth three times daily. Blood-Glucose Meter [facility] Dispense 1 kit Janki Vale RN documented in this encounterSalem City Hospital06-01-2023 History of Present illness Narrative* Greta [...] 14, 2022 3:10 PM documented in this encounterSalem City Hospital06-01-2023 History of Present illness Narrative* Santi [...] 14, 2022 3:38 PM documented in this encounterSalem City Hospital05-22-2023 History of Present illness Narrative* Martha [...] 04, 2022 3:03 PM documented in this encounterSalem City Hospital05-16-2023 Instructions* Patient Instructions* Angela Schmid APRN.CNP - 06/28/2022 3:43 PM EDT Continue the same blood pressure medication. Check with insurance re: shingrix vaccine. Let us know about the scooter battery. Recheck in 2 months. documented in this encounterSalem City Hospital05-16-2023 History of Present illness Narrative* Angela [...] stenosis Bicuspid aortic valve Bipolar 1 disorder ([facility]) Chronic obstructive pulmonary disease (COPD) ([facility]) Coronary artery disease Degenerative disc disease sees Dr. Sellers Diabetic neuropathy ([facility]) DM (diabetes mellitus) ([facility]) HTN (hypertension) Hyperkalemia Hyperlipidemia Hypogonadism male LVH (left ventricular hypertrophy) Morbid obesity ([facility]) MANISH on CPAP Pain management Dr. [...] by mouth three times daily. Blood-Glucose Meter [facility] Dispense 1 kit dulaglutide (TRULICITY) 1.5 mg/0.5 [...] Disease Brother other (Myocardial infarc) Brother Fatal [place] Social History Tobacco Use Smoking status: Every [...] as needed for worsening/no improvement. Angela Schmid APRN.NOODLE PRESS OPERATOR documented in this encounterSalem City Hospital05-12-2023 Miscellaneous Notes* Telephone Encounter - Janki [...] and advise. Janki Granger documented in this encounterSalem City Hospital04-18-2023 History of Present illness Narrative* Greta Powers, OD - 05/31/2022 2:56 PM EDT 1. Type 2 diabetes mellitus without retinopathy (HCC) Risk of diabetic changes and vision loss can be minimized by tight control of blood sugar, blood pressure, and cholesterol levels. Educated patient to continue care with primary care doctor and/or precision optical goods worker to maintain optimum levels as they are [...] 31, 2022 2:56 PM documented in this encounterSalem City Hospital04-17-2023 Miscellaneous Notes* Telephone Encounter - Aminah Escudero LPN - 05/30/2022 9:27 AM EDT Left detailed message for patient. * Telephone Encounter - Alyson Arthur MD - 05/30/2022 8:18 AM EDT Let him know sugars are much better. Urine still shows protein but is stable. Keep watching his diet. documented in this encounterSalem City Hospital04-11-2023 Miscellaneous Notes* Telephone Encounter - Allison Omalley - 05/24/2022 3:01 PM EDT Patient informed and verbalized understanding. Allison Omalley * Telephone Encounter - Alyson Arthur MD - 05/24/2022 8:04 AM EDT Sugar is much better. Remind him he has a urine for microglobulin ordered that should have veen done with the labs. Please do documented in this encounterSalem City Hospital04-10-2023 Instructions* Patient Instructions* Kathy Colbert APRN.[facility] - 05/23/2022 10:55 AM EDT [...] process is complete. The content on the [employer] website is not intended nor recommended as a substitute for medical advice, diagnosis, or treatment. Always seek the advice of your own physician or other qualified healthcare professional regarding any medical questions or conditions.. 2016 9158 [employer] All rights reserved. Topic 93126 Version 5.0 documented in this encounterSalem City Hospital04-10-2023 History of Present illness Narrative* Kathy Colbert APRN.CNP - 05/23/2022 10:30 AM EDT Images from the original note were not included. [facility] Cardiology ([facility]) [address] [facility] [id number] OUTPATIENT VISIT May 23, 2022 10:30 AM [...] was previously evaluated by Dr. Montgomery in [place]. He is seen today to establish cardiology [...] stenosis Bicuspid aortic valve Bipolar 1 disorder ([facility]) Chronic obstructive pulmonary disease (COPD) ([facility]) Coronary artery disease Degenerative disc disease sees Dr. Sellers Diabetic neuropathy ([facility]) DM (diabetes mellitus) ([facility]) HTN (hypertension) Hyperkalemia Hyperlipidemia Hypogonadism male LVH (left ventricular hypertrophy) Morbid obesity ([facility]) MANISH on CPAP Pain management Dr. [...] Disease Brother other (Myocardial infarc) Brother Fatal [place] Social History Tobacco Use Smoking status: Every [...] mouth three times daily. 0 Blood-Glucose Meter [facility] Dispense 1 kit 1 Each 0 losartan-hydroCHLOROthiazide [...] injection (DEFINITY) INTRAVENOUS DIRECTED PRN Kathy Colbert APRN.NOODLE PRESS OPERATOR sodium chloride 0.9 % (flush) 10 mL (BD POSIFLUSH) 10 mL INTRAVENOUS DIRECTED PRN Kathy Colbert APRN.NOODLE PRESS OPERATOR perflutren lipid microspheres 1.3 mL in NaCl [...] concerns prior to then. Electronically signed by Katyh Colbert APRN.CNP on May 23, 2022, 9:18 AM documented in this encounterSalem City Hospital04-07-2023 History of Present illness Narrative* Alyson [...] by mouth three times daily. Blood-Glucose Meter [facility] Dispense 1 kit Current Facility-Administered Medications Medication [...] disorder (HCC) Chronic obstructive pulmonary disease (COPD) ([facility]) Coronary artery disease Degenerative disc disease sees Dr. Sellers Diabetic neuropathy ([facility]) DM (diabetes mellitus) ([facility]) HTN (hypertension) Hyperkalemia Hyperlipidemia Hypogonadism male LVH (left ventricular hypertrophy) Morbid obesity ([facility]) MANISH on CPAP Pain management Dr. [...] Disease Brother other (Myocardial infarc) Brother Fatal [place] Social History Tobacco Use Smoking status: Every [...] neuropathy, with long-term current use of insulin ([facility]) - ICD9: 250.60, 357.2, V58.67, ICD10: E11.40, Z79.4 (primary diagnosis) - Controlled - get labs. - CONSULT TO OPHTHALMOLOGY 2. Encounter for immunization - ICD9: V03.89, ICD10: Z23 - PNEUMOCOCCAL VACCINE (PREVNAR 20) - [employer] COVID-19 BIVALENT BOOSTER VACCINE, AGE 12+ YR 3. Morbid obesity with BMI of 50.0-59.9, adult ([facility]) - ICD9: 278.01, V85.43, ICD10: E66.01, Z68.43 - work on diet. 4. Chronic bronchitis, simple ([facility]) - ICD9: 491.0, ICD10: J41.0 - continue meds. 5. Type 2 diabetes mellitus with microalbuminuria, with long-term current use of insulin ([facility]) - ICD9: 250.40, 791.0, V58.67, ICD10: [...] COLOGUARD Alyson Arthur MD documented in this encounterSalem City Hospital04-05-2023 Miscellaneous Notes* Telephone Encounter - Aminah Escudero LPN - 05/18/2022 5:19 PM EDT Completed and faxed. * Telephone Encounter - Bebeto Haro LPN - 05/18/2022 4:16 PM EDT Type of form: DME/CPAP supplies Form received via fax When form is completed, Fax form to [phone] Form has been forwarded to Physician Mailbox: Dr. Jerson Haro LPN documented in this encounterSalem City Hospital03-07-2023 History of Present illness Narrative* Gissell Roamn - 04/19/2022 12:30 PM EST Kiel Catherine is identified through a medication adherence outreach initiative based on pharmacy claims data from [place] (insurer) for Statin medication(s). Patient is reviewed [...] fill date per reconcile dispense Gissell Roman Senior Product Marketing Manager documented in this encounterSal[facility]02-07[facility]23 History of Present illness Narrative* Aria [...] Gap or Scheduling/Wellness visits Payer: Payor: JEFF [employer] AND [employer], Mobile Secretary / Plan: JEFF Silver [employer]ATH[employer]IA[employer] HMO / Product Type: HMO / Care [...] 22, 2022 9:10 AM documented in this encounterSalem City Hospital02-06-2023 Miscellaneous Notes* Telephone Encounter - Tony [...] you. Tony Palma RN documented in this encounterSalem City Hospital01-18-2023 Miscellaneous Notes* Telephone Encounter - July [...] you. July Perez LPN documented in this encounterSalem City Hospital01-03-2023 Miscellaneous Notes* Telephone Encounter - Apple Allen RN - 02/15/2022 1:47 PM EST Kate from [facility] calls and states that they have not been able to get Trulicity 3 mg in stock. Kate asking if provider can write a prescription for Trulicity 1.5 mg and for patient to take 2 injections a week to equal 3 mg? Please review and advise, Apple Allen RN documented in this encounterSalem City Hospital12-22-2022 Miscellaneous Notes* Telephone Encounter - Joan [...] you. Joan Gallardo RN documented in this encounterSalem City Hospital11-14-2022 Miscellaneous Notes* Telephone Encounter - Marzena P[facility]ett [facility] - 12/27/2021 12:47 PM EST Patient has been identified by name and date of : Yes Requested Prescriptions Pending Prescriptions Disp Refills insulin glargine (LANTUS SOLOSTAR U-100 INSULIN) 100 unit/mL (3 mL) 6 Each 1 Sig: Inject 20 Units subcutaneously daily at bedtime. RX INSTRUCTIONS: Patient aware RX will be sent to pharmacy. No need to notify patient. [facility] documented in this encounterSalem City Hospital10-05-2022 Miscellaneous Notes* Telephone Encounter - Marley Bradley LPN - 11/17/2021 11:44 AM EDT [place] calling for refill ESSIE: 10/22/21 NOV: 11/22/21 Last Refill: 10/15/21 #120 0 refills Marley Bradley LPN documented in this encounterSalem City Hospital10-03-2022 Miscellaneous Notes* Telephone Encounter - Scott [...] 320 Apple Allen RN documented in this encounterSalem City Hospital09-23-2022 Miscellaneous Notes* Telephone Encounter - Alyson [...] you. Tony Palma RN documented in this encounterSalem City Hospital09-22-2022 Miscellaneous Notes* Telephone Encounter - Allison Omalley - 11/04/2021 8:37 AM EDT Tried patient at # [phone] with no answer. VM verified. Left detailed message explaining that we needed to speak with him regarding his elevated A1c and change to insulin. Advised him to call back. Tried other # on file [phone] and received busy signal multiple times. Letter [...] M Gregory Barton, PA-C documented in this encounterSalem City Hospital09-21-2022 History of Present illness Narrative* Miriam [...] Gap or Scheduling/Wellness visits Payer: Payor: JEFF [employer] CR[employer] BLUE SHIELD / Plan: [employer] HMO / Product Type: HMO / Care [...] 03, 2021 1:23 PM documented in this encounterSalem City Hospital09-09-2022 History of Present illness Narrative* Scott Livingston PA-C - 10/22/2021 2:23 PM EDT 61 year old male new to ct with c/o here for wellness visit and problem review. Concerned about diabetes and recent prednisone 10/18/2021 patient presented to [facility] with complaints of runny nose, headache, shortness of breath which he states has been persistent over approximately 2 months. Patient's home O2 satswere running 91%, usually 96 to 97% patient sent to [facility] emergency department. Has been sick over 2 months with respiratory illness but later identifies since former visit in 12/13/20 and 01/04/2021. 10/18/2021 presented to [facility] ER with complaint of same cough with history of bronchitis and asthma in the past. At that time denied chest pain, fever, chills, body aches, nausea, vomiting or diarrhea. Vital signs 97.8 [id number], recheck 164/66, 94% on room air. Chest [...] Restrictive lung disease Chronic bronchitis, simple (hcc) Business Travel Consultant: none currently. Interval history: 02/20/2013 Dr. Reuben [...] a day when sick. Bipolar 1 disorder ([facility]) Current medications: Not taking meds: stopped Fluoxetine, Quetiapine Feels he is doing well, able to manage depressive episodes. Morbid obesity with bmi of 50.0-59.9, adult ([facility]) Vitals 01/04/2021 05/03/2021 10/18/2021 10/22/2021 BODY MASS [...] Disease Brother other (Myocardial infarc) Brother Fatal GA PAST MEDICAL HISTORY Diagnosis Date Anxiety Atrial septal defect and mitral stenosis Bicuspid aortic valve Bipolar 1 disorder ([facility]) Chronic obstructive pulmonary disease (COPD) ([facility]) Coronary artery disease Degenerative disc disease sees Dr. Sellers Diabetic neuropathy ([facility]) DM (diabetes mellitus) ([facility]) HTN (hypertension) Hyperkalemia Hyperlipidemia Hypogonadism male LVH (left ventricular hypertrophy) Morbid obesity ([facility]) MANISH on CPAP Pain management Dr. [...] Diabetic Neuropathy, With Long-Term Current Use of Insulin([facility]) Hyperlipidemia Htn (Hypertension) Ddd (Degenerative Disc Disease), Lumbar Bipolar 1 Disorder ([facility]) Morbid Obesity With Bmi of 50.0-59.9, Adult ([facility]) Lvh (Left Ventricular Hypertrophy) Chronic Bronchitis, Simple (Hcc) Hypogonadism Male Ulnar Neuropathy of Left Upper Extremity Tendinitis of Left Wrist Microalbuminuria Nonrheumatic Aortic Valve Stenosis Type 2 Diabetes Mellitus With Microalbuminuria, With Long-Term Current Use of Insulin ([facility]) Current Outpatient Medications Medication [...] mg by mouth twice daily. Blood-Glucose Meter [facility] Dispense 1 kit 1 Each 0 blood [...] none. Tobacco use: 1.25 ppd. Caffeine use: [employer] 96oz. ETOH use: none. Marijuana use: none. [...] which included preparing to see the patient, [id number] patient care, completing clinical documentation, obtaining and/or reviewing separately obtained history, performing a medically appropriate examination, counseling and educating the pat ient/family/caregiver, ordering medications, tests, or procedures, communicating with other HCPs (not separately reported), independently interpreting results (not separately reported), communicatingresults to the patient/family/caregiver, and care coordination (not separately reported). Scott Livingston PA-C documented in this encounterSalem City Hospital09-02-2022 Miscellaneous Notes* Telephone Encounter - Bebeto [...] you. Scott Cabrera RN documented in this encounterSalem City Hospital08-11-2022 History of Present illness Narrative* Apple [...] Gap or Scheduling/Wellness visits Payer: Payor: [employer], Mobile Secretary / Plan: JEFF [employer] HMO / Product Type: HMO / Care [...] 23, 2021 1:52 PM documented in [place] encounterSt[place] [address]-04-2022 Miscellaneous Notes* Telephone Encounter - July Aguilar [...] you. July Perez LPN documented in this encounterSalem City Hospital07-12-2022 Miscellaneous Notes* Telephone Encounter - Yoly [...] patient. Yoly Murray LPN documented in this encounterSalem City Hospital06-07-2022 Miscellaneous Notes* Telephone Encounter - Apple Allen RN - 07/20/2021 4:16 PM EDT Patient has been identified by name and date of : Yes Pharmacy phones for refill(s): Pending Prescriptions Disp Refills GLIMEPIRIDE 4 MG TABLET 30 tablet 11 Sig: Take 1 tablet by mouth daily with breakfast. JNAINE: No METFORMIN 500 MG TABLET 120 tablet [...] you. Apple Allen RN documented in this encounterSalem City Hospital06-02-2022 History of Present illness Narrative* Nga [...] Gap or Scheduling/Wellness visits Payer: Payor: JEFF [employer] AND [employer], Mobile Secretary / Plan: [employer] HMO / Product Type: HMO / Care [...] 15, 2021 10:22 AM documented in this encounterSalem City Hospital05-12-2022 Miscellaneous Notes* Telephone Encounter - Ya [...] patient. Ya Brewster Pss documented in this encounterSalem City Hospital05-02-2022 History of Present illness Narrative* Karen Romero RN - 06/14/2021 9:56 AM EDT [facility] Enrollment Provider Action/FYI: will have pt return call Patient referred by: [facility] Miguelito Contact made with patient: Yes - Patient identified by name and . Discussed care with patient Saeed this is Karen Gallagher RN and I am calling from Alyson Arthur MD [facility]. I am a RN Telecommunications Support with our [facility] Chronic Disease Management program. [...] few questions once a week through your [employer] account. It will automatically show up for [...] patient in a month. documented in this encounterSalem City Hospital04-15-2022 Miscellaneous Notes* Telephone Encounter - Alexandra [...] you. Alexandra Osborn LPN documented in this encounterSalem City Hospital11-15-2021 History of Present illness Narrative* Ana [...] 28, 2020 4:36 PM documented in this encounterSalem City Hospital10-04-2021 Miscellaneous Notes* Telephone Encounter - Marley Bradley LPN - 11/16/2020 3:12 PM EDT [place] calling for refills. ESSIE: 06/18/20 NOV: None scheduled Marley Bradley LPN documented in this encounterSalem City Hospital03-03-2021 History of Present illness Narrative* Martha [...] 15, 2020 4:12 PM documented in this encounterSalem City Hospital04-01-2014 History of Past illness Narrative* Problem Noted Date Resolved Date Tendinitis of left wrist 05/14/2013 023 Atrial septal defect and mitral stenosis 11/30/2012 documented as of this encounter (statuses as of 05/21/2022) [facility] of [facility] illness Narrative* Problem Noted Date Resolved Date Tendinitis of left wrist 05/14/2013 023 Atrial septal defect and mitral stenosis 11/30/2012 documented as of this encounter (statuses as of 05/23/2022) [facility] of [facility] illness Narrative* Problem Noted Date Resolved Date Tendinitis of left wrist 05/14/2013 023 Atrial septal defect and mitral stenosis 11/30/2012 documented as of this encounter (statuses as of 05/25/2022) [facility] Narrative* Problem Noted Date Resolved Date Tendinitis of left wrist 05/14/2013 023 Atrial septal defect and mitral stenosis 11/30/2012 documented as of this encounter (statuses as of 05/30/2022) [facility] Narrative* Problem Noted Date Resolved Date Tendinitis of left wrist 05/14/2013 023 Atrial septal defect and mitral stenosis 11/30/2012 documented as of this encounter (statuses as of 05/31/2022) [facility] Narrative* Problem Noted Date Resolved Date Tendinitis of left wrist 05/14/201305/20/2 023 Atrial septal defect and mitral stenosis 11/30/2012 documented as of this encounter (statuses as of 06/25/2022) [facility] Narrative* Problem Noted Date Resolved Date Tendinitis of left wrist 05/14/2013 023 Atrial septal defect and mitral stenosis 11/30/2012 documented as of this encounter (statuses as of 06/29/2022) [facility] Narrative* Problem Noted Date Resolved Date Tendinitis of left wrist 05/14/2013 023 Atrial septal defect and mitral stenosis 11/30/2012 documented as of this encounter (statuses as of 07/15/2022) [facility] Narrative* Problem Noted Date Resolved Date Tendinitis of left wrist 05/14/2013 023 Atrial septal defect and mitral stenosis 11/30/2012 documented as of this encounter (statuses as of 07/16/2022) [facility] Narrative* Problem Noted Date Resolved Date Tendinitis of left wrist 05/14/2013 023 Atrial septal defect and mitral stenosis 11/30/2012 documented as of this encounter (statuses as of 07/20/2022) [facility] Narrative* Problem Noted Date Resolved Date Tendinitis of left wrist 05/14/20132 023 Atrial septal defect and mitral stenosis 11/30/2012 documented as of this encounter (statuses as of 08/09/2022) [facility] Narrative* Problem Noted Date Resolved Date Tendinitis of left wrist 05/14/201307/2 023 Atrial septal defect and mitral stenosis 11/30/2012 documented as of this encounter (statuses as of 08/10/2022) [facility] Narrative* Problem Noted Date Resolved Date Tendinitis of left wrist 05/14/2013 023 Atrial septal defect and mitral stenosis 11/30/2012 documented as of this encounter (statuses as of 08/13/2022) [place] [address]-01-2014 History of Past illness Narrative* Problem Noted Date Resolved Date Tendinitis of left wrist 05/14/2013 023 Atrial septal defect and mitral stenosis 11/30/2012 documented as of this encounter (statuses as of 08/18/2022) [facility]arrative* Problem Noted Date Diagnosed Date Resolved Date Tendinitis of left wrist 05/14/201308/2022 Atrial septal defect and mitral stenosis 11/30/2012 documented as of this encounter (statuses as of 09/29/2022) [place] [address]-01-2014 History of Past illness Narrative* Problem Noted Date Diagnosed Date Resolved Date Tendinitis of left wrist 05/14/201308/2022 Atrial septal defect and mitral stenosis 11/30/2012 documented as of this encounter (statuses as of 10/03/2022) [facility]arr[facility]* Problem Noted Date Diagnosed Date Resolved Date Tendinitis of left wrist 05/14/201308/2022 Atrial septal defect and mitral stenosis 11/30/2012 documented as of this encounter (statuses as of 10/04/2022) [facility]arrative* Problem Noted Date Diagnosed Date Resolved Date Tendinitis of left wrist 05/14/201308/2022 Atrial septal defect and mitral stenosis 11/30/2012 documented as of this encounter (statuses as of 10/05/2022) [facility]arrative* Problem Noted Date Diagnosed Date Resolved Date Tendinitis of left wrist 05/14/201308/2022 Atrial septal defect and mitral stenosis 11/30/2012 documented as of this encounter (statuses as of 10/07/2022) [facility]* Problem Noted Date Diagnosed Date Resolved Date Tendinitis of left wrist 05/14/201308/2022 Atrial septal defect and mitral stenosis 11/30/2012 documented as of this encounter (statuses as of 10/12/2022) [facility]arrative* Problem Noted Date Diagnosed Date Resolved Date Tendinitis of left wrist 05/14/201308/2022 Atrial septal defect and mitral stenosis 11/30/2012 documented as of this encounter (statuses as of 10/14/2022) [facility]arrative* Problem Noted Date Diagnosed Date Resolved Date Tendinitis of left wrist 05/14/201308/2022 Atrial septal defect and mitral stenosis 11/30/2012 documented as of this encounter (statuses as of 10/20/2022) [facility]* Problem Noted Date Diagnosed Date Resolved Date Tendinitis of left wrist 05/14/201308/2022 Atrial septal defect and mitral stenosis 11/30/2012 documented as of this encounter (statuses as of 10/26/2022) [facility]* Problem Noted Date Diagnosed Date Resolved Date Tendinitis of left wrist 05/14/201308/2022 Atrial septal defect and mitral stenosis 11/30/2012 documented as of this encounter (statuses as of 10/26/2022) [facility]* Problem Noted Date Diagnosed Date Resolved Date Tendinitis of left wrist 05/14/201308/2022 Atrial septal defect and mitral stenosis 11/30/2012 documented as of this encounter (statuses as of 10/27/2022) [facility]arr[facility]* Problem Noted Date Diagnosed Date Resolved Date Tendinitis of left wrist 05/14/201308/2022 Atrial septal defect and mitral stenosis 11/30/2012 documented as of this encounter (statuses as of 10/31/2022) [facility]* Problem Noted Date Diagnosed Date Resolved Date Tendinitis of left wrist 05/14/201308/2022 Atrial septal defect and mitral stenosis 11/30/2012 documented as of this encounter (statuses as of 11/01/2022) [facility]* Problem Noted Date Diagnosed Date Resolved Date Tendinitis of left wrist 05/14/201308/2022 Atrial septal defect and mitral stenosis 11/30/2012 documented as of this encounter (statuses as of 11/02/2022) [facility]* Problem Noted Date Diagnosed Date Resolved Date Tendinitis of left wrist 05/14/201308/2022 Atrial septal defect and mitral stenosis 11/30/2012 documented as of this encounter (statuses as of 11/09/2022) [facility]* Problem Noted Date Diagnosed Date Resolved Date Tendinitis of left wrist 05/14/201308/2022 Atrial septal defect and mitral stenosis 11/30/2012 documented as of this encounter (statuses as of 11/19/2022) [facility]* Problem Noted Date Diagnosed Date Resolved Date Tendinitis of left wrist 05/14/201308/2022 Atrial septal defect and mitral stenosis 11/30/2012 documented as of this encounter (statuses as of 11/22/2022) [facility]* Problem Noted Date Diagnosed Date Resolved Date Tendinitis of left wrist 05/14/201308/2022 Atrial septal defect and mitral stenosis 11/30/2012 documented as of this encounter (statuses as of 11/24/2022) [facility]* Problem Noted Date Diagnosed Date Resolved Date Tendinitis of left wrist 05/14/201308/2022 Atrial septal defect and mitral stenosis 11/30/2012 documented as of this encounter (statuses as of 11/25/2022) [facility]* Problem Noted Date Diagnosed Date Resolved Date Tendinitis of left wrist 05/14/201308/2022 Atrial septal defect and mitral stenosis 11/30/2012 documented as of this encounter (statuses as of 11/25/2022) [facility]* Problem Noted Date Diagnosed Date Resolved Date Tendinitis of left wrist 05/14/201308/2022 Atrial septal defect and mitral stenosis 11/30/2012 documented as of this encounter (statuses as of 11/30/2022) [facility]* Problem Noted Date Diagnosed Date Resolved Date Tendinitis of left wrist 05/14/201308/2022 Atrial septal defect and mitral stenosis 11/30/2012 documented as of this encounter (statuses as of 12/01/2022) [facility]* Problem Noted Date Diagnosed Date Resolved Date Tendinitis of left wrist 05/14/201308/2022 Atrial septal defect and mitral stenosis 11/30/2012 documented as of this encounter (statuses as of 12/01/2022) [facility]arr[facility]* Problem Noted Date Diagnosed Date Resolved Date Tendinitis of left wrist 05/14/201308/2022 Atrial septal defect and mitral stenosis 11/30/2012 documented as of this encounter (statuses as of 12/07/2022) [facility]* Problem Noted Date Diagnosed Date Resolved Date Tendinitis of left wrist 05/14/201308/2022 Atrial septal defect and mitral stenosis 11/30/2012 documented as of this encounter (statuses as of 12/09/2022) [facility]* Problem Noted Date Diagnosed Date Resolved Date Tendinitis of left wrist 05/14/201308/2022 Atrial septal defect and mitral stenosis 11/30/2012 documented as of this encounter (statuses as of 12/09/2022) [facility]* Problem Noted Date Diagnosed Date Resolved Date Tendinitis of left wrist 05/14/201308/2022 Atrial septal defect and mitral stenosis 11/30/2012 documented as of this encounter (statuses as of 12/13/2022) [facility]* Problem Noted Date Diagnosed Date Resolved Date Tendinitis of left wrist 05/14/201308/2022 Atrial septal defect and mitral stenosis 11/30/2012 documented as of this encounter (statuses as of 12/18/2022) [facility]* Problem Noted Date Diagnosed Date Resolved Date Tendinitis of left wrist 05/14/201308/2022 Atrial septal defect and mitral stenosis 11/30/2012 documented as of this encounter (statuses as of 12/21/2022) [address]01-2014 History of Past illness Narrative* Problem Noted Date Diagnosed Date Resolved Date Tendinitis of left wrist 05/14/201308/2022 Atrial septal defect and mitral stenosis 11/30/2012 documented as of this encounter (statuses as of 12/22/2022) [address]01-2014 History of Past illness Narrative* Problem Noted Date Diagnosed Date Resolved Date Tendinitis of left wrist 05/14/201308/2022 Atrial septal defect and mitral stenosis 11/30/2012 documented as of this encounter (statuses as of 12/27/2022) [address]01[address]2014 History of Past illness Narrative* Problem Noted Date Diagnosed Date Resolved Date Tendinitis of left wrist 05/14/201308/2022 Atrial septal defect and mitral stenosis 11/30/2012 documented as of this encounter (statuses as of 12/28/2022) [place] [address]-01-2014 History of Past illness Narrative* Problem Noted Date Diagnosed Date Resolved Date Tendinitis of left wrist 05/14/201308/2022 Atrial septal defect and mitral stenosis 11/30/2012 documented as of this encounter (statuses as of 12/30/2022) [facility]* Problem Noted Date Diagnosed Date Resolved Date Tendinitis of left wrist 05/14/201308/2022 Atrial septal defect and mitral stenosis 11/30/2012 documented as of this encounter (statuses as of 01/10/2023) [facility]arr[facility]* Problem Noted Date Diagnosed Date Resolved Date Tendinitis of left wrist 05/14/201308/2022 Atrial septal defect and mitral stenosis 11/30/2012 documented as of this encounter (statuses as of 01/28/2023) [facility]arrative* Problem Noted Date Diagnosed Date Resolved Date Tendinitis of left wrist 05/14/201308/2022 Atrial septal defect and mitral stenosis 11/30/2012 documented as of this encounter (statuses as of 03/17/2023) [facility]* Problem Noted Date Diagnosed Date Resolved Date Tendinitis of left wrist 05/14/201308/2022 Atrial septal defect and mitral stenosis 11/30/2012 documented as of this encounter (statuses as of 03/17/2023) [facility]arrative* Problem Noted Date Diagnosed Date Resolved Date Tendinitis of left wrist 05/14/201308/2022 Atrial septal defect and mitral stenosis 11/30/2012 documented as of this encounter (statuses as of 03/17/2023) [facility]arrative* Problem Noted Date Diagnosed Date Resolved Date Tendinitis of left wrist 05/14/201308/2022 Atrial septal defect and mitral stenosis 11/30/2012 documented as of this encounter (statuses as of 03/17/2023) [facility]arrative* Problem Noted Date Diagnosed Date Resolved Date Tendinitis of left wrist 05/14/201308/2022 Atrial septal defect and mitral stenosis 11/30/2012 documented as of this encounter (statuses as of 03/17/2023) [facility] N[facility]* Problem Noted Date Diagnosed Date Resolved Date Tendinitis of left wrist 05/14/201308/2022 Atrial septal defect and mitral stenosis 11/30/2012 documented as of this encounter (statuses as of 03/19/2023) [facility]2013 History of Past illness Narrative* Problem Noted Date Resolved Date Atrial septal defect and mitral stenosis 11/30/2012 documented as of this encounter (statuses as of 05/28/2021) [facility] History of Past illness Narrative* Problem Noted Date Resolved Date Atrial septal defect and mitral stenosis 11/30/2012 documented as of this encounter (statuses as of 06/14/2021) [facility] History of Past illness Narrative* Problem Noted Date Resolved Date Atrial septal defect and mitral stenosis 11/30/2012 documented as of this encounter (statuses as of 06/23/2021) [facility] History of Past illness Narrative* Problem Noted Date Resolved Date Atrial septal defect and mitral stenosis 11/30/2012 documented as of this encounter (statuses as of 06/24/2021) [facility] History of Past illness Narrative* Problem Noted Date Resolved Date Atrial septal defect and mitral stenosis 11/30/2012 documented as of this encounter (statuses as of 07/15/2021) [facility] History of Past illness Narrative* Problem Noted Date Resolved Date Atrial septal defect and mitral stenosis 11/30/2012 documented as of this encounter (statuses as of 07/20/2021) [facility] History of Past illness Narrative* Problem Noted Date Resolved Date Atrial septal defect and mitral stenosis 11/30/2012 documented as of this encounter (statuses as of 08/24/2021) [facility] History of Past illness Narrative* Problem Noted Date Resolved Date Atrial septal defect and mitral stenosis 11/30/2012 documented as of this encounter (statuses as of 09/16/2021) [facility] History of Past illness Narrative* Problem Noted Date Resolved Date Atrial septal defect and mitral stenosis 11/30/2012 documented as of this encounter (statuses as of 09/23/2021) [facility] History of Past illness Narrative* Problem Noted Date Resolved Date Atrial septal defect and mitral stenosis 11/30/2012 documented as of this encounter (statuses as of 10/15/2021) [facility] History of Past illness Narrative* Problem Noted Date Resolved Date Atrial septal defect and mitral stenosis 11/30/2012 documented as of this encounter (statuses as of 10/23/2021) [facility] History of Past illness Narrative* Problem Noted Date Resolved Date Atrial septal defect and mitral stenosis 11/30/2012 documented as of this encounter (statuses as of 11/03/2021) [facility] History of Past illness Narrative* Problem Noted Date Resolved Date Atrial septal defect and mitral stenosis 11/30/2012 documented as of this encounter (statuses as of 11/04/2021) [facility] History of Past illness Narrative* Problem Noted Date Resolved Date Atrial septal defect and mitral stenosis 11/30/2012 documented as of this encounter (statuses as of 11/05/2021) [address]18-2013 History of Past illness Narrative* Problem Noted Date Resolved Date Atrial septal defect and mitral stenosis 11/30/2012 documented as of this encounter (statuses as of 11/15/2021) [facility] History of Past illness Narrative* Problem Noted Date Resolved Date Atrial septal defect and mitral stenosis 11/30/2012 documented as of this encounter (statuses as of 11/17/2021) [facility] History of Past illness Narrative* Problem Noted Date Resolved Date Atrial septal defect and mitral stenosis 11/30/2012 documented as of this encounter (statuses as of 12/28/2021) [facility] History of Past illness Narrative* Problem Noted Date Resolved Date Atrial septal defect and mitral stenosis 11/30/2012 documented as of this encounter (statuses as of 02/04/2022) [facility] History of Past illness Narrative* Problem Noted Date Resolved Date Atrial septal defect and mitral stenosis 11/30/2012 documented as of this encounter (statuses as of 02/17/2022) [facility] History of Past illness Narrative* Problem Noted Date Resolved Date Atrial septal defect and mitral stenosis 11/30/2012 documented as of this encounter (statuses as of 03/02/2022) [facility] History of Past illness Narrative* Problem Noted Date Resolved Date Atrial septal defect and mitral stenosis 11/30/2012 documented as of this encounter (statuses as of 03/22/2022) [facility] History of Past illness Narrative* Problem Noted Date Resolved Date Atrial septal defect and mitral stenosis 11/30/2012 documented as of this encounter (statuses as of 03/22/2022) [address]18-2013 History of Past illness Narrative* Problem Noted Date Resolved Date Atrial septal defect and mitral stenosis 11/30/2012 documented as of this encounter (statuses as of 04/19/2022) [facility] History of Past illness Narrative* Problem Noted Date Resolved Date Atrial septal defect and mitral stenosis 11/30/2012 documented as of this encounter (statuses as of 05/19/2022) [facility] Raj Stevenson [facility] June 22, 2023 4:32pm Note Date/Time June 22, 2023 4:32pm [facility] Medical Records Department [address] [place] [address] Consultation - Surgical 06/22/23 1625 MR#: [id number] Acct: [id number] Name: KIEL CATHERINE Rep #:[id number] : 1960 62 From: Raj márquez [...] his blood thinners. Raj Stevenson MD Pager: [facility] [address] [place], [place] [address], [address] [place] [address] Office: HPI Consult Data Date of Consult: 06/22/23 HPI Narrative HPI Narrative: KIEL CATHERINE, is a 62 M who presents with nausea and vomiting. The patient has a complicated medical history. He also is a poor historian. Patient says that he had bicuspid valve replacement in March [facility]. He says hehad a CVA during the surgery. He says that he developed a bowel obstruction after the surgery. He has had 2 other bowel obstructions treated at [facility]. He says they were treated nonoperatively. The patient reports no previous abdominal surgeries. He says his mid upper abdomen is painful. He says he had a bowel movement yesterday and feels like he has to have another 1. He denies acute pain and says that it comes and goes. [facility] Medical History Anxiety Asthma Atherosclerotic heart disease of [place] coronary artery without angina pectoris Atrial septal [...] (Auto) 77.0 H, Lymph % (Auto) 12.5 L,Story % (Auto) 9.6, Eos % (Auto) 0.1, [...] Clarity Clear, Urine pH 5.0, Ur Specific [place] 1.025, Urine Protein 30 H, Urine Glucose [...] applicable): CC: Dr. Alyson Arthur MD~ Signed [facility] Work Phone: Evaluation note* Diagnosis GERD without esophagitis Esophageal reflux Type 2 diabetes mellitus without complication, without long-term current use of insulin (HCC) Dyspnea, unspecified type Chronic obstructive pulmonary disease, unspecified COPD type (HCC) DDD (degenerative disc disease), lumbar Degeneration of lumbar or lumbosacral intervertebral disc documented in this encounter [facility] note* Diagnosis GERD without esophagitis- Primary Esophageal reflux DDD (degenerative disc disease), lumbar Degeneration of lumbar or lumbosacral intervertebral disc documented in this encounter [facility] note* Diagnosis Type 2 diabetes mellitus without complication, without long-term current use of insulin (HCC) GERD without esophagitis Esophageal reflux DDD (degenerative disc disease), lumbar Degeneration of lumbar or lumbosacral intervertebral disc documented in this encounter [facility] noteNo assessment information availableWTrumbull [facility] Work Phone: Evaluation note* Diagnosis DDD (degenerative disc disease), lumbar Degeneration of lumbar or lumbosacral intervertebral disc documented in this encounter [facility] note* Diagnosis DDD (degenerative disc disease), lumbar Degeneration of lumbar or lumbosacral intervertebral disc documented in this encounter [facility] note* Diagnosis DDD (degenerative disc disease), lumbar Degeneration of lumbar or lumbosacral intervertebral disc Type 2 diabetes mellitus without complication, without long-term current use of insulin ([facility]) documented in this encounter [facility] note* Diagnosis Nonrheumatic aortic valve stenosis- [...] nonobstructive alveolar hypoventilation [facility]* Diagnosis Controlled type 2 diabetes mellitus with diabetic neuropathy, with long-term current use of insulin (HCC)- Primary [facility]* Diagnosis Controlled type 2 diabetes mellitus with diabetic neuropathy, with long-term current use of insulin (HCC)- Primary [facility]* Diagnosis DDD (degenerative disc disease), lumbar Degeneration of lumbar or lumbosacral intervertebral disc [facility]* Diagnosis DDD (degenerative disc disease), lumbar Degeneration of lumbar or lumbosacral intervertebral disc [facility]* Diagnosis Controlled type 2 diabetes mellitus with diabetic neuropathy, with long-term current use of insulin ([facility])- Primary [facility]* Diagnosis Controlled type 2 diabetes mellitus with diabetic neuropathy, with long-term current use of insulin ([facility]) [facility]* Diagnosis Controlled type 2 diabetes mellitus with diabetic neuropathy, with long-term current use of insulin ([facility])- Primary Encounter for immunization Need for [...] malignant neoplasms, colon documented in this encounter [facility] note* Diagnosis Nonrheumatic aortic valve stenosis- Primary Aortic valve disorders Bicuspid aortic valve Congenital insufficiency of aortic valve Edema, unspecified type Chronic diastolic heart failure (HCC) Chronic diastolic heart failure Hyperlipidemia, unspecified hyperlipidemia type Primary hypertension Unspecified essential hypertension Controlled type 2 diabetes mellitus with diabetic neuropathy, with long-term current use of insulin (HCC) Morbid obesity with BMI of 50.0-59.9, adult ([facility]) Morbid obesity [facility]* Diagnosis Type 2 diabetes mellitus without retinopathy (HCC)- Primary Type II or unspecified type diabetes mellitus without mention of complication, not stated as uncontrolled Combined forms of age-related cataract of both eyes Other and combined forms of senile cataract Dry eye syndrome of bilateral lacrimal glands Tear film insufficiency, unspecified Glaucoma suspect of both eyes Preglaucoma, unspecified [facility]* Diagnosis GERD without esophagitis Esophageal reflux Type 2 diabetes mellitus without complication, without long-term current use of insulin ([facility]) [facility] Diagnosis Primary hypertension- Primary Unspecified essential hypertension Controlled type 2 diabetes mellitus with diabetic neuropathy, with long-term current use of insulin ([facility]) Chronic back pain, unspecified back location, unspecified back pain laterality [facility]* Diagnosis Type 2 diabetes mellitus without retinopathy (HCC)- Primary Type II or unspecified type diabetes mellitus without mention of complication, not stated as uncontrolled Combined forms of age-related cataract of both eyes Other and combined forms of senile cataract Dry eye syndrome of bilateral lacrimal glands Tear film insufficiency, unspecified Glaucoma suspect of both eyes Preglaucoma, unspecified [facility] Diagnosis Encounter for screening for lung cancer- Primary Tobacco use current [facility]* Diagnosis DDD (degenerative disc disease), lumbar Degeneration of lumbar or lumbosacral intervertebral disc [facility] Diagnosis MANISH (obstructive sleep apnea)- Primary Obstructive sleep apnea (adult) (pediatric) [facility]* Diagnosis Bilateral leg edema- Primary Edema [facility]* Diagnosis Dyspnea, unspecified type Chronic obstructive pulmonary disease, unspecified COPD type ([facility]) [facility]* Diagnosis DDD (degenerative disc disease), lumbar- Primary Degeneration of lumbar or lumbosacral intervertebral disc Morbid obesity with BMI of 50.0-59.9, adult (HCC) Morbid obesity LVH (left ventricular hypertrophy) Cardiomegaly Restrictive lung disease Other diseases of lung, not elsewhere classified [facility]* Diagnosis Lumbar radiculopathy- Primary Thoracic or [...] Morbid obesity with BMI of 50.0-59.9, adult ([facility]) Morbid obesity Microalbuminuria Proteinuria [facility]* Diagnosis Aortic valve stenosis, etiology of cardiac valve disease unspecified- Primary Bicuspid aortic valve Congenital insufficiency of aortic valve documented in this encounter [facility] note* Diagnosis Bicuspid aortic valve Congenital insufficiency of aortic valve Nonrheumatic aortic valve stenosis Aortic valve disorders documented in this encounter [facility] note* Diagnosis Controlled type 2 diabetes mellitus with diabetic neuropathy, with long-term current use of insulin ([facility]) documented in this encounter [facility] note* Diagnosis Onset Date Resolution Status Pneumonia acute COPD exacerbation [facility] Work Phone: Evaluation note* Diagnosis Controlled type 2 diabetes mellitus with diabetic neuropathy, with long-term current use of insulin ([facility]) documented in this encounter [facility] note* Diagnosis Open wound of right lower extremity, subsequent encounter- Primary [facility]* Diagnosis Bacterial pneumonia- Primary Bacterial pneumonia, [...] of unspecified site [facility] Diagnosis Cutaneous abscess of right lower extremity Cellulitis and abscess of leg, except foot Cellulitis of skin Cellulitis and abscess of unspecified site [facility] Diagnosis Encounter for preprocedural cardiovascular examination- Primary Pre-operative cardiovascular examination Sleep apnea, unspecified type Bicuspid aortic valve Congenital insufficiency of aortic valve Nonrheumatic aortic valve stenosis Aortic valve disorders Preoperative testing Preoperative examination, unspecified [facility] Diagnosis Encounter for preprocedural cardiovascular examination Pre-operative cardiovascular examination Sleep apnea, unspecified type Bicuspid aortic valve Congenital insufficiency of aortic valve Nonrheumatic aortic valve stenosis Aortic valve disorders Preoperative testing Preoperative examination, unspecified Valvular heart disease Endocarditis, valve unspecified, unspecified cause [facility] Diagnosis Encounter for preprocedural cardiovascular examination Pre-operative cardiovascular examination Sleep apnea, unspecified type Bicuspid aortic valve Congenital insufficiency of aortic valve Nonrheumatic aortic valve stenosis Aortic valve disorders Preoperative testing Preoperative examination, unspecified Valvular heart disease Endocarditis, valve unspecified, unspecified cause [facility] Diagnosis Encounter for preprocedural cardiovascular examination Pre-operative cardiovascular examination Sleep apnea, unspecified type Bicuspid aortic valve Congenital insufficiency of aortic valve Nonrheumatic aortic valve stenosis Aortic valve disorders Preoperative testing Preoperative examination, unspecified Valvular heart disease Endocarditis, valve unspecified, unspecified cause [facility] Diagnosis Encounter for preprocedural cardiovascular examination Pre-operative cardiovascular examination Sleep apnea, unspecified type Bicuspid aortic valve Congenital insufficiency of aortic valve Nonrheumatic aortic valve stenosis Aortic valve disorders Preoperative testing Preoperative examination, unspecified Valvular heart disease Endocarditis, valve unspecified, unspecified cause [facility] Diagnosis Blister (nonthermal), right foot, initial encounter- Primary Bilateral lower extremity edema Edema Dependent rubor Unspecified erythematous condition Open wound of right lower extremity, subsequent encounter Controlled type 2 diabetes mellitus with diabetic neuropathy, with long-term current use of insulin (HCC) [facility] Diagnosis Venous insufficiency- Primary Unspecified [...] vascular disease, unspecified [facility]* Diagnosis Dyspnea, unspecified type Chronic obstructive pulmonary disease, unspecified COPD type ([facility]) [facility]* Diagnosis Encounter for screening for lung cancer Tobacco use current documented in this encounter [facility] note* Diagnosis Severe aortic stenosis [I35.0]- Primary Aortic valve disorders [facility]* Diagnosis Preoperative testing- Primary Preoperative examination, unspecified Encounter for preprocedural cardiovascular examination Pre-operative cardiovascular examination Severe aortic stenosis Aortic valve disorders documented in this encounter [facility] note* Diagnosis DDD (degenerative disc disease), lumbar Degeneration of lumbar or lumbosacral intervertebral disc [facility] Diagnosis Pre-op exam- Primary Preoperative examination, unspecified Controlled type 2 diabetes mellitus without complication, unspecified whether residential insulin use (HCC) Pre-operative cardiovascular examination Aortic valve disorder Aortic valve disorders Aneurysm of ascending 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 ([facility]) documented in this encounter [facility] note* Diagnosis Encounter for preoperative anesthesiology assessment for cardiac surgery- Primary Controlled type 2 diabetes mellitus without complication, unspecified whether residential insulin use (HCC) Pre-operative cardiovascular examination Aortic valve disorder Aortic valve disorders 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) documented in this encounter [facility] note* Diagnosis Controlled type 2 diabetes mellitus without complication, unspecified whether residential insulin use (HCC) Pre-operative cardiovascular examination Aortic valve disorder Aortic valve disorders 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) Chronic diastolic heart failure (HCC) Chronic diastolic heart failure Chronic bronchitis, simple (HCC) Simple chronic bronchitis Morbid obesity with BMI of 50.0-59.9, adult (HCC) Morbid obesity Controlled type 2 diabetes mellitus without complication, unspecified whether residential insulin use (HCC) Pre-operative cardiovascular examination Aortic valve disorder Aortic valve disorders 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) [facility]* Diagnosis Controlled type 2 diabetes mellitus without complication, unspecified whether terminal operator insulin use (HCC) Pre-operative cardiovascular examination Aortic valve disorder Aortic valve disorders 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) Controlled type 2 diabetes mellitus without complication, unspecified whether residential insulin use (HCC) Pre-operative cardiovascular examination Aortic valve disorder Aortic valve disorders 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) [facility]* Diagnosis Small bowel obstruction (HCC)- Primary Unspecified intestinal obstruction Right hemiparesis (HCC) Hemiplegia, unspecified, affecting unspecified side Slurred speech Other speech disturbance Mild CAD Dysarthria Arterial ischemic stroke, MCA (middle cerebral artery), left, acute (HCC) Unspecified cerebral artery occlusion with cerebral infarction Dilatation of aorta (HCC) Aortic ectasia, unspecified site Type 2 diabetes mellitus with hyperglycemia, with long-term current use of insulin ([facility]) Pressure injury of coccygeal region, unstageable ([facility]) Pleural effusion Unspecified pleural effusion Chronic [...] of upper extremity [facility]* Diagnosis Type 2 diabetes mellitus without complication, without long-term current use of insulin ([facility]) [facility]* Diagnosis Paroxysmal atrial fibrillation (HCC)- Primary Atrial fibrillation [facility]* Diagnosis Chronic back pain, unspecified back location, unspecified back pain laterality [facility]* Diagnosis Wrist pain, acute, right- Primary [facility]* Diagnosis Aortic valve disorder- Primary Aortic [...] (HCC) Cardiac complications [facility]* Diagnosis Onset Date Resolution Status Small bowel obstruction [facility] Work Phone: Evaluation note* Diagnosis Onset Date Resolution Status Morbid obesity acute Small bowel obstruction [facility] Work Phone: Evaluation note* Diagnosis Chronic back pain, unspecified back location, unspecified back pain laterality Type 2 diabetes mellitus without complication, without long-term current use of insulin ([facility]) documented in this encounter [facility] note* Diagnosis Aneurysm of ascending 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 ([facility])- Primary documented in this encounter [facility] note* Diagnosis Aneurysm of ascending 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 ([facility]) documented in this encounter [facility] note* Diagnosis Arterial ischemic stroke (HCC)- Primary Unspecified cerebral artery occlusion with cerebral infarction Right hemiparesis (HCC) Hemiplegia, unspecified, affecting unspecified side documented in this encounter [facility] note* Diagnosis SBO (small bowel obstruction) ([facility])- Primary Unspecified intestinal obstruction [facility]* Diagnosis Chronic back pain, unspecified back location, unspecified back pain laterality documented in this encounter [facility] note* Diagnosis Controlled type 2 diabetes mellitus with diabetic neuropathy, with long-term current use of insulin ([facility]) documented in this encounter [facility] note* Diagnosis Right hemiparesis (HCC)- Primary Hemiplegia, unspecified, affecting unspecified side Arterial ischemic stroke, MCA (middle cerebral artery), left, acute (HCC) Unspecified cerebral artery occlusion with cerebral infarction documented in this encounter [facility] note* Diagnosis Neurogenic bladder as late effect of cerebrovascular accident (CVA)- Primary documented in this encounter [facility]* Diagnosis Type 2 diabetes mellitus without complication, without long-term current use of insulin ([facility]) documented in this encounter [facility] note* Diagnosis Chronic back pain, unspecified back location, unspecified back pain laterality GERD without esophagitis Esophageal reflux Mild CAD Arterial ischemic stroke, MCA (middle cerebral artery), left, acute (HCC) Unspecified cerebral artery occlusion with cerebral infarction Dilatation of aorta (HCC) Aortic ectasia, unspecified site Bicuspid aortic valve Congenital insufficiency of aortic valve Primary hypertension Unspecified essential hypertension [facility]* Diagnosis Wrist pain, acute, right documented in this encounter [facility]* Diagnosis Pleural effusion Unspecified pleural effusion Small bowel obstruction (HCC) Unspecified intestinal obstruction documented [facility] this [facility]* Diagnosis Bacterial pneumonia Bacterial pneumonia, unspecified [facility]* Diagnosis Left hip pain Pain in joint, pelvic region and thigh [facility]* Diagnosis Primary hypertension Unspecified essential hypertension Arterial ischemic stroke, MCA (middle cerebral artery), left, acute (HCC) Unspecified cerebral artery occlusion with cerebral infarction Dilatation of aorta (HCC) Aortic ectasia, unspecified site Type 2 diabetes mellitus with hyperglycemia, with long-term current use of insulin ([facility]) documented [facility] this encounter [facility]* Diagnosis Cough [facility]* Diagnosis Left wrist pain Pain in joint, forearm [facility]* Diagnosis Type 2 diabetes mellitus without complication, without long-term current use of insulin (HCC) documented [facility] this encounter [facility]* Diagnosis Type 2 diabetes mellitus without complication, without long-term current use of insulin (HCC) documented in this encounter [facility]* Diagnosis Type 2 diabetes mellitus without complication, without long-term current use of insulin (HCC) documented [facility] this encounter [facility]* Diagnosis Type 2 diabetes mellitus without complication, without long-term current use of insulin (HCC) [facility]* Diagnosis Chronic back pain, unspecified back location, unspecified back pain laterality [facility]* Diagnosis Urine frequency- Primary Urinary frequency Encounter for immunization Need for other specified prophylactic vaccination against single bacterial disease Screening for depression Encounter for screening examination for other mental health and behavioral disorders Chronic obstructive pulmonary disease, unspecified COPD type ([facility]) Screening for colon cancer Special screening for malignant neoplasms, colon Type 2 diabetes mellitus with hyperglycemia, with long-term current use of insulin ([facility]) Encounter for screening for lung cancer [...] recurrence not specified documented in this encounter [facility] note* Diagnosis Chronic back pain, unspecified back location, unspecified back pain laterality- Primary Right hemiparesis (HCC) Hemiplegia, unspecified, affecting unspecified side documented in this encounter [facility] note* Diagnosis GERD without esophagitis Esophageal reflux Mild CAD Arterial ischemic stroke, MCA (middle cerebral artery), left, acute (HCC) Unspecified cerebral artery occlusion with cerebral infarction Dilatation of aorta (HCC) Aortic ectasia, unspecified site Bicuspid aortic valve Congenital insufficiency of aortic valve Chronic back pain, unspecified back location, unspecified back pain laterality documented in this encounter [facility] note* Diagnosis Cigarette smoker- Primary Tobacco use disorder documented in this encounter [facility] note* Diagnosis Paroxysmal atrial fibrillation (HCC) Atrial fibrillation documented in this encounter [facility] note* Diagnosis Controlled type 2 diabetes mellitus with diabetic neuropathy, with long-term current use of insulin ([facility]) documented in this encounter [facility] note* Diagnosis Type 2 diabetes mellitus with hyperglycemia, with long-term current use of insulin ([facility])- Primary documented in this encounter [facility] note* Diagnosis MANISH (obstructive sleep apnea)- Primary Obstructive sleep apnea (adult) (pediatric) Chronic back pain, unspecified back location, unspecified back pain laterality Chronic insomnia Insomnia, unspecified documented in this encounter [facility] note* Diagnosis Uncontrolled type 2 diabetes mellitus with hyperglycemia ([facility])- Primary Peripheral vascular disease Peripheral vascular [...] ear, unspecified type documented in this encounter [facility] note* Diagnosis Type 2 diabetes mellitus without complication, without long-term current use of insulin (HCC) documented in this encounter [facility] note* Diagnosis Acute otitis externa, unspecified laterality, unspecified type- Primary documented in this encounter [facility] note* Diagnosis Primary hypertension Unspecified essential hypertension documented in this encounter [facility] note* Diagnosis Type 2 diabetes mellitus without complication, without long-term current use of insulin (HCC) documented in this encounter [facility] note* Diagnosis Multiple lung nodules- Primary Other nonspecific abnormal finding of lung field Encounter for screening for lung cancer Tobacco use current documented in this encounter [facility] note* Diagnosis Cigarette smoker Tobacco use disorder documented in this encounter [facility] note* Diagnosis Chronic back pain, unspecified back location, unspecified back pain laterality GERD without esophagitis Esophageal reflux Mild CAD Arterial ischemic stroke, MCA (middle cerebral artery), left, acute (HCC) Unspecified cerebral artery occlusion with cerebral infarction Dilatation of aorta Aortic ectasia, unspecified site Bicuspid aortic valve (HCC) Congenital insufficiency of aortic valve Chronic insomnia Insomnia, unspecified [facility] Narrative No data available for this section [facility] Discharge instructions No data available for this section [facility] for [facility] (narrative)* Outpatient Procedure (Routine) - Authorized Specialty Diagnoses / Procedures Referred By Contac t Referred To Contact [facility] Diagnoses Bicuspid aortic valve Nonrheumatic aortic valve stenosis Procedures ECHO ECHO TTHRC R-T 2D W/WOM-MODE COMPL SPEC&COLR D Kathy Colbert APRN.CNP [address] [place] [address] [facility] [place] [address] Referral ID Status Reason Start Date Expiration Date Visits Requested Visits Authorized [id number] Authorized Auto-Generat ed Referral 05/23/2022 05/23/2023 1 1 [facility] for referral (narrative)* Outpatient Procedure (Routine) - Authorized Specialty Diagnoses / Procedures Referred By Ade t Referred To [facility] Diagnoses Diminished pulses in lower extremity Diabetic mononeuropathy associated with diabetes mellitus due to underlying condition (HCC) Procedures PVR ANK PRESS SOY [facility] LAB NON-INVAS PHYSIOLOGIC STD EXTREMITY ART 2 LEVEL Estelle Cardenas [address] [place] [address] [facility] [address] [place] [address] Referral ID Status Reason Start Date Expiration Date Visits Requested Visits Authorized [id number] Authorized Auto-Generat ed Referral 12/05/2023 1 1 * Diagnostic Procedure Only (Routine) - Closed Specialty Diagnoses / Procedures Referred By Ade t Referred To Contact XR IMAGING Diagnoses Venous insufficiency Procedures XR TIBIA FIBULA 2V AP/LAT RIGHT RADIOLOGIC EXAMINATION TIBIA & FIBULA 2 VIEWS Estelle Cardenas [address] [place] [address] [place] [address] Referral ID Status Reason Start Date Expiration Date V isits Requested Visits Authorized [id number] Closed Auto-Generate d Referral 12/05/2022 01/04/2024 1 1 * Diagnostic Procedure Only (Routine) - Closed Specialty Diagnoses / Procedures Referred By Ade t Referred To Contact XR IMAGING Diagnoses Venous insufficiency Blister Procedures XR FOOT GENERAL 3V AP/LAT/OBL RIGHT RADEX FOOT COMPLETE MINIMUM 3 VIEWS Estelle Cardenas [address] [place] [address] Xr Imaging [id number] Referral ID Status Reason Start Date Expiration Date V isits Requested Visits Authorized [id number] Closed Auto-Generate d Referral 12/05/2022 01/04/2024 1 1 [facility] for referral (narrative)* Outpatient Procedure (Routine) - Authorized Specialty Diagnoses / Procedures Referred By Contac t Referred To [facility] Diagnoses Preoperative testing Encounter for preprocedural cardiovascular examination Severe aortic stenosis Procedures US CAROTID ARTERIES [facility] DUPLEX SCAN EXTRACRANIAL ART COMPL BI STUDY Leandro Foster APRN.NOODLE PRESS OPERATOR [address] [place] [address] [facility] [address] [place] [address] Referral ID Status Reason Start Date Expiration Date Visits Requested Visits Authorized [id number] Authorized Auto-Generat ed Referral 12/21/2022 12/21/2023 1 1 [facility] for referral (narrative)* Diagnostic Procedure Only (Urgent) - Closed Specialty Diagnoses / Procedures Referred By Contac t Referred To Contact XR IMAGING Diagnoses Wrist pain, acute, right Procedures XR WRIST INJURY 4V PA/LAT/OBL/SCAPH RIGHT RADEX WRIST COMPLETE MINIMUM 3 VIEWS Jim Jeffers APRN.NOODLE PRESS OPERATOR [address] [place] [address] [place] [address] Referral ID Status Reason Start Date Expiration Date V isits Requested Visits Authorized [id number] Closed Auto-Generate d Referral 05/29/2023 06/27/2024 1 1 * Diagnostic Procedure Only (Urgent) - Closed Specialty Diagnoses / Procedures Referred By Contac t Referred To Contact XR IMAGING Diagnoses Wrist pain, acute, right Procedures XR HAND GENERAL 3V PA/LAT/OBL RIGHT RADEX HAND MINIMUM 3 VIEWS Jim Jeffers APRN.NOODLE PRESS OPERATOR [address] [place] [address] [place] [address] Referral ID Status Reason Start Date Expiration Date V isits Requested Visits Authorized [id number] Closed Auto-Generate d Referral 05/29/2023 06/27/2024 1 1 [facility] for referral (narrative)* Diagnostic Procedure Only (Urgent) - Closed Specialty Diagnoses / Procedures Referred By Contac t Referred To Contact XR IMAGING Diagnoses Wrist pain, acute, right Procedures XR WRIST INJURY 4V PA/LAT/OBL/SCAPH RIGHT RADEX WRIST COMPLETE MINIMUM 3 VIEWS Jim Jeffers APRN.NOODLE PRESS OPERATOR [address] [place] [address] [place] [address] Referral ID Status Reason Start Date Expiration Date V isits Requested Visits Authorized [id number] Closed Auto-Generate d Referral 05/29/2023 06/27/2024 1 1 * Diagnostic Procedure Only (Urgent) - Closed Specialty Diagnoses / Procedures Referred By Contac t Referred To Contact XR IMAGING Diagnoses Wrist pain, acute, right Procedures XR HAND GENERAL 3V PA/LAT/OBL RIGHT RADEX HAND MINIMUM 3 VIEWS Jim Jeffers APRN.NOODLE PRESS OPERATOR [address] [place] [address] [place] [address] Referral ID Status Reason Start Date Expiration Date V isits Requested Visits Authorized [id number] Closed Auto-Generate d Referral 05/29/2023 06/27/2024 1 1 [facility] for referral (narrative)* Diagnostic Procedure Only (Routine) - Closed Specialty Diagnoses / Procedures Referred By Contac t Referred To Contact XR IMAGING Diagnoses Small bowel obstruction (HCC) Procedures XR ABDOMEN 1V SUPINE RADIOLOGIC EXAM ABDOMEN 1 VIEW Alyson Arthur MD [address] [place] [address] [place] [address] Referral ID Status Reason Start Date Expiration Date V isits Requested Visits Authorized [id number] Closed Auto-Generate d Referral 05/22/2023 06/20/2024 1 1 [facility] for referral (narrative)* Diagnostic Procedure Only (Urgent) - Closed Specialty Diagnoses / Procedures Referred By Contac t Referred To Contact XR IMAGING Diagnoses Left hip pain Procedures XR HIP GENERAL 3V PELV/AP/LAT LEFT RADEX HIP UNILATERAL WITH PELVIS 2-3 VIEWS Marci Merlos, FRAMEMAN.NOODLE PRESS OPERATOR [address] [place] [address] [place] [address] Referral ID Status Reason Start Date Expiration Date V isits Requested Visits Authorized [id number] Closed Auto-Generate d Referral 07/04/2022 08/03/2023 1 1 [facility] for referral (narrative)No reason for referral information [facility] Phone: Reason for visit Narrative* Outpatient Procedure (Routine) - Closed Specialty Diagnoses / Procedures Referred By Contac t Referred To [facility] Diagnoses Bicuspid aortic valve Nonrheumatic aortic valve stenosis Procedures ECHO ECHO TTHRC R-T 2D W/WOM-MODE COMPL SPEC&COLR D Kathy Colbert FRAMEMAN.NOODLE PRESS OPERATOR [address] [place] [address] [facility] [address] [place] [address] Referral ID Status Reason Start Date Expiration Date V isits Requested Visits Authorized [id number] Closed Auto-Generate d Referral 05/23/2022 05/23/2023 1 1 [facility] for visit Narrative* Diagnostic Procedure Only (Urgent) - Closed Specialty Diagnoses / Procedures Referred By Contac t Referred To Contact XR IMAGING Diagnoses Wrist pain, acute, right Procedures XR WRIST INJURY 4V PA/LAT/OBL/SCAPH RIGHT RADEX WRIST COMPLETE MINIMUM 3 VIEWS Jim Jeffers FRAMEMAN.NOODLE PRESS OPERATOR [address] [place] [address] [place] [address] Referral ID Status Reason Start Date Expiration Date V isits Requested Visits Authorized [id number] Closed Auto-Generate d Referral 05/29/2023 06/27/2024 1 1 [facility] for visit Narrative* Diagnostic Procedure Only (Routine) - Closed Specialty Diagnoses / Procedures Referred By Contac t Referred To Contact XR IMAGING Diagnoses Small bowel obstruction (HCC) Procedures XR ABDOMEN 1V SUPINE RADIOLOGIC EXAM ABDOMEN 1 VIEW Alyson Arthur MD [address] [place] [address] [place] [address] Referral ID Status Reason Start Date Expiration Date V isits Requested Visits Authorized [id number] Closed Auto-Generate d Referral 05/22/2023 06/20/2024 1 1 [facility] for visit Narrative* Diagnostic Procedure Only (Urgent) - Closed Specialty Diagnoses / Procedures Referred By Contac t Referred To Contact XR IMAGING Diagnoses Left hip pain Procedures XR HIP GENERAL 3V PELV/AP/LAT LEFT RADEX HIP UNILATERAL WITH PELVIS 2-3 VIEWS Marci Merlos, PRICILA.NOODLE PRESS OPERATOR [address] [place] [address] [place] [address] Referral ID Status Reason Start Date Expiration Date V isits Requested Visits Authorized [id number] Closed Auto-Generate d Referral 07/04/2022 08/03/2023 1 1 [facility] Concerns Infection Onset Date Last [...] No October 30, 2020 9:16pm Power of Toolmaker Grade Three No October 9:16pm Advance Directive Response Recorded Date/ Time Advance Directives No November 20, 2013 7:14pm Living Will No October 18, 2 022 1:18pm Power of Toolmaker Grade [employer] No October 18, 2021 1:18pm Advance Directive Response Recorded Date/ Time Advance Directives No November 20, 2013 6:14pm Living Will No October 18, 2 022 12:18pm Power of Toolmaker Grade [employer] No October 18, 2021 12:18pm Advance Directive Response Recorded Date/ Time Advance Directives No November 20, 2013 7:14pm Living Will No September 23 3 2:06am Power of Toolmaker Grade Three No September 23, 2 023 2:06am Advance Directive Response Recorded Date/ Time Advance Directives No November 20, 2013 7:14pm Living Will No October 09 3 2:45pm Power of Toolmaker Grade [employer] No October 09, 2 023 2:45pm Advance Directive Response Recorded Date/ Time Advance Directives No November 20, 2013 7:14pm Living Will No October 09 3 10:10pm Power of Toolmaker Grade [employer] No October 09, 2 023 10:10pm Advance Directive Response Recorded Date/ Time Advance Directives No November 20, 2013 7:14pm Living Will No June 22, 2023 2: 13pm Power of Toolmaker Grade [employer] No June 22, 2023 2:13pm Advance Directive Response Recorded Date/ Time Advance Directives No November 20, 2013 7:14pm Living Will No June 22, 2023 8: 26pm Power of Toolmaker Grade [employer] No June 22, 2023 8:26pm Advance Directive [...] hyperlipidemia type Procedures CONSULT TO CARDIOLOGY OFFICE/OUTPATIENT [facility] 60-74 MINUTES Scott Livingston PA-C [address] [place] [address] Referral ID Status Reason Start Date Expiration Date Visits Requested Visits Authorized [id number] Pending Review PCP Requested Referral 10/22/2021 10/22/2022 1 1 Specialty Diagnoses / Procedures Referred By Contac t Referred To Contact Ophthalmology Diagnoses Type 2 diabetes mellitus with microalbuminuria, with long-term current use of insulin (HCC) Age-related cataract of both eyes, unspecified age-related cataract type Procedures CONSULT TO OPHTHALMOLOGY OFFICE/OUTPATIENT [facility] 60-74 MINUTES Scott Livingston PA-C [address] [place] [address] Referral ID Status Reason Start Date Expiration Date Visits Requested Visits Authorized [id number] Pending Review PCP Requested Referral 10/22/2021 10/22/2022 1 1 Specialty Diagnoses / Procedures Referred By Contac t Referred To [facility] Diagnoses Nonrheumatic aortic valve stenosis Bicuspid aortic valve LVH (left ventricular hypertrophy) Procedures ECHO ECHO TTHRC R-T 2D W/WOM-MODE COMPL SPEC&COLR D Scott Livingston PA-C [address] [place] [address] [facility] [address] [place] [address] Referral ID Status Reason Start Date Expiration Date Visits Requested Visits Authorized [id number] Authorized Auto-Generat ed Referral 10/22/2021 10/22/2022 1 1 Specialty Diagnoses / Procedures Referred By Contac t Referred To Contact Ophthalmology Diagnoses Type 2 diabetes mellitus with microalbuminuria, with long-term current use of insulin (HCC) Controlled type 2 diabetes mellitus with diabetic neuropathy, with long-term current use of insulin (HCC) Procedures CONSULT TO OPHTHALMOLOGY OFFICE/OUTPATIENT [facility] 60-74 MINUTES Alyson Arthur MD [address] [place] [address] Referral ID Status Reason Start Date Expiration Date Visits Requested Visits Authorized [id number] Pending Review PCP Requested Referral 05/20/2022 05/20/2023 1 1 Specialty Diagnoses / Procedures Referred By Contac t Referred To Contact Cardiology Diagnoses Bicuspid aortic valve Procedures CONSULT TO CARDIOLOGY OFFICE/OUTPATIENT [facility] MDM 60-74 MINUTES Alyson Arthur MD [address] [place] [address] Referral ID Status Reason Start Date Expiration Date Visits Requested Visits Authorized [id number] Pending Review PCP Requested Referral 05/20/2022 05/20/2023 1 1 Specialty Diagnoses / Procedures Referred By Contac t Referred To Contact CT IMAGING Diagnoses Encounter for screening for lung cancer Tobacco use current Procedures CT LUNG SCREEN WO IVCON COMPUTED TOMOGRAPHY THORAX LW DOSE LNG CA Amauri Kapadia, FRAMEMAN.NOODLE PRESS OPERATOR [address] [place] [address] Ct Imaging Referral ID Status Reason Start Date Expiration Date Visits Requested Visits Authorized [id number] Pending Review Auto-Generat ed Referral 07/16/2023 08/14/2023 1 1 Specialty Diagnoses / Procedures Referred By Contac t Referred To Contact Diagnoses Dyspnea, unspecified type Chronic obstructive pulmonary disease, unspecified COPD type (HCC) Alyosn Arthur MD [address] [place] [address] Referral ID Status Reason Start Date Expiration Date V isits Requested Visits Authorized [id number] Pending Review 1 1 Specialty Diagnoses / Procedures Referred By Contac t Referred To Contact Diagnoses Lumbar radiculopathy Procedures CONSULT TO SPINE SURGERY Alyson Arthur MD [address] [place] [address] Referral ID Status Reason Start Date Expiration Date Visits Requested Visits Authorized [id number] Ref Not Required PCP Requested Referral 09/28/2022 09/28/2023 1 1 Specialty Diagnoses / Procedures Referred By Contac t Referred To Contact Cardiothoracic Surgery Diagnoses Aortic valve stenosis, etiology of cardiac valve disease unspecified Bicuspid aortic valve Procedures CONSULT TO CARDIOTHORACIC SURGERY Kathy Colbert, FRAMEMAN.NOODLE PRESS OPERATOR [address] [place] [address] Benjamin Pike MD [address] [place] [address] Referral ID Status Reason Start Date Expiration Date Visits Requested Visits Authorized [id number] Ref Not Required PCP Requested Referral 10/03/2022 10/03/2023 1 1 Specialty Diagnoses / Procedures Referred By Contac t Referred To Contact General Surgery Diagnoses Cutaneous abscess of right lower extremity Cellulitis of skin Procedures CONSULT TO GENERAL SURGERY OFFICE/OUTPATIENT [facility] 60-74 MINUTES Alyson Arthur MD [address] [place] [address] Referral ID Status Reason Start Date Expiration Date Visits Requested Visits Authorized [id number] Pending Review PCP Requested Referral 10/25/2022 10/25/2023 1 1 Specialty Diagnoses / Procedures Referred By Contac t Referred To Contact MR IMAGING Diagnoses Vision changes Headache, unspecified headache type Procedures MRI BRAIN WO IVCON MRI BRAIN BRAIN STEM W/O CONTRAST MATERIAL Alyson Arthur MD [address] [place] [address] Mr Imaging [id number] Referral ID Status Reason Start Date Expiration Date Visits Requested Visits Authorized [id number] Pending Review Auto-Generat ed Referral 10/25/2022 11/24/2023 1 1 Specialty Diagnoses / Procedures Referred By Contac t Referred To Contact CT IMAGING Diagnoses Encounter for preprocedural cardiovascular examination Sleep apnea, unspecified type Bicuspid aortic valve Nonrheumatic aortic valve stenosis Preoperative testing Procedures CTA CHEST (GATED) WO/W IVCON CT ANGIOGRAPHY CHEST W/CONTRAST/NONCONTRAST Leandro Foster, FRAMEMAN.NOODLE PRESS OPERATOR [address] [place] [address] [place] [address] Referral ID Status Reason Start Date Expiration Date Visits Requested Visits Authorized [id number] Pending Review Auto-Generat ed Referral 11/08/2022 12/08/2023 1 1 Specialty Diagnoses / Procedures Referred By Contac t Referred To Contact CT IMAGING Diagnoses Encounter for preprocedural cardiovascular examination Sleep apnea, unspecified type Bicuspid aortic valve Nonrheumatic aortic valve stenosis Preoperative testing Procedures CTA ABD/PEL W IVCON CT ANGIO ABD&PLVIS CNTRST MTRL W/WO CNTRST IMGES Leandro Foster, PRICILA.NOODLE PRESS OPERATOR [address] [place] [address] [place] [address] Referral ID Status Reason Start Date Expiration Date Visits Requested Visits Authorized [id number] Pending Review Auto-Generat ed Referral 11/08/2022 12/08/2023 1 1 Specialty Diagnoses / Procedures Referred By Contac t Referred To Contact [facility] Diagnoses Encounter for preprocedural cardiovascular examination Sleep apnea, unspecified type Bicuspid aortic valve Nonrheumatic aortic valve stenosis Preoperative testing Procedures LUNG VOLUMES Leandro Foster APRN.NOODLE PRESS OPERATOR [address] [place] [address] [facility] [address] [place] [address] Referral ID Status Reason Start Date Expiration Date Visits Requested Visits Authorized [id number] Pending Review Auto-Generat ed Referral 11/08/2022 12/08/2023 1 1 Specialty Diagnoses / Procedures Referred By Contac t Referred To Contact [facility] Diagnoses Encounter for preprocedural cardiovascular examination Sleep apnea, unspecified type Bicuspid aortic valve Nonrheumatic aortic valve stenosis Preoperative testing Procedures LUNG DIFFUSION CAPACITY (DLCO) DIFFUSING CAPACITY Leandro Foster, PRICILA.NOODLE PRESS OPERATOR [address] [place] [address] [facility] [address] [place] [address] Referral ID Status Reason Start Date Expiration Date Visits Requested Visits Authorized [id number] Pending Review Auto-Generat ed Referral 11/08/2022 12/08/2023 1 1 Specialty Diagnoses / Procedures Referred By Contac t Referred To Contact [facility] Diagnoses Encounter for preprocedural cardiovascular examination Sleep apnea, unspecified type Bicuspid aortic valve Nonrheumatic aortic valve stenosis Preoperative testing Procedures SPIROMETRY BASELINE ONLY SPMTRY W/VC EXPIRATORY JUAN W/WO MXML VOL VNTJ Leandro Foster, FRAMEMAN.NOODLE PRESS OPERATOR [address] [place] [address] [place] [place] [address] Referral ID Status Reason Start Date Expiration Date Visits Requested Visits Authorized [id number] Pending Review Auto-Generat ed Referral 11/08/2022 12/08/2023 1 1 Specialty Diagnoses / Procedures Referred By Ade t Referred To Contact Alyson Arthur MD [address] [place] [address] Referral ID Status Reason Start Date Expiration Date V isits Requested Visits Authorized [id number] Pending Review 1 1 Specialty Diagnoses / Procedures Referred By Contac t Referred To Contact Podiatry Diagnoses Blister (nonthermal), right foot, initial encounter Controlled type 2 diabetes mellitus with diabetic neuropathy, with long-term current use of insulin (HCC) Procedures CONSULT TO PODIATRY OFFICE/OUTPATIENT [facility] MDM 60-74 MINUTES Pascual Bacon MD [address] [place] [address] Referral ID Status Reason Start Date Expiration Date Visits Requested Visits Authorized [id number] Pending Review PCP Requested Referral 3 11/30/2023 1 1 Referral ID Status Reason Start Date Expiration Date Visits Re quested Visits Authorized [id number] Closed 1 1 Specialty Diagnoses / Procedures Referred By Ade t Referred To Contact CT IMAGING Diagnoses Encounter for screening for lung cancer Tobacco use current Procedures CT LUNG SCREEN WO IVCON COMPUTED TOMOGRAPHY THORAX LW DOSE LNG CA SCR C- Deysi, Amauri, FRAMEMAN.NOODLE PRESS OPERATOR [address] [place] [address] Ct Imaging [id number] Referral ID Status Reason Start Date Expiration Date V isits Requested Visits Authorized [id number] Closed Auto-Generate d Referral 06/28/2022 07/28/2023 1 1 Referral ID Status Reason Start Date Expiration Date Visits Re quested Visits Authorized [id number] Closed 1 1 Specialty Diagnoses / Procedures Referred By Ade t Referred To Contact Procedures CARDIOVASCULAR MEDICINE OP FOLLOW UP APPT ORDER Kiel Barnes MD [address] [place] [address] Referral ID Status Reason Start Date Expiration Date Visits Requested Visits Authorized [id number] Ref Not Required PCP Requested Referral 03/16/2023 03/15/2024 1 1 Specialty Diagnoses / Procedures Referred By Contac t Referred To Contact Neurology Diagnoses Right hemiparesis (HCC) Slurred speech Mild CAD Dysarthria Arterial ischemic stroke, MCA (middle cerebral artery), left, acute (HCC) Procedures CONSULT TO NEUROLOGY OFFICE/OUTPATIENT [facility] 60 MINUTES Alyson Arthur MD [address] [place] [address] Referral ID Status Reason Start Date Expiration Date Visits Requested Visits Authorized [id number] Authorized PCP Requested Referral 05/22/2023 05/21/2024 1 1 Specialty Diagnoses / Procedures Referred By Contac t Referred To Contact XR IMAGING Diagnoses Small bowel obstruction (HCC) Procedures XR ABDOMEN 1V SUPINE RADIOLOGIC EXAM ABDOMEN 1 VIEW Alyson Arthur MD [address] [place] [address] [place] [address] Referral ID Status Reason Start Date Expiration Date V isits Requested Visits Authorized [id number] Closed Auto-Generate d Referral 05/22/2023 06/20/2024 1 1 Specialty Diagnoses / Procedures Referred By Contac t Referred To Contact Diagnoses [place] [address] [place] [address] Referral ID Status Reason Start Date Expiration Date V isits Requested Visits Authorized [id number] Pending Review 1 1 Referral ID Status Reason Start Date Expiration Date Visits Re quested Visits Authorized [id number] Denied 1 1 Specialty Diagnoses / Procedures Referred By Contac t Referred [facility] Procedures CARDIOVASCULAR MEDICINE OP FO[place] [address] [place] [address] [facility] [address] [place] [address] Referral ID Status Reason Start Date Expiration Date Visits Requested Visits Authorized [id number] Ref Not Required PCP Requested Referral 06/06/2023 06/05/2024 1 1 Specialty Diagnoses / Procedures Referred By Contac t Referred To Contact CT IMAGING Diagnoses 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) Procedures CTA CHEST (GATED) W IVCON CT ANGIOGRAPHY CHEST W/CONTRAST/NONCONTRAST Elma Hester, PRICILA.NOODLE PRESS OPERATOR [address] [place] [address] [place] [address] Referral ID Status Reason Start Date Expiration Date V isits Requested Visits Authorized [id number] Closed Auto-Generate d Referral 03/28/2023 04/26/2024 1 1 Specialty Diagnoses / Procedures Referred By Contac t Referred To Contact Gastroenterology Diagnoses SBO (small bowel obstruction) ([facility]) Procedures CONSULT TO GASTROENTEROLOGY OFFICE/OUTPATIENT [facility] 60 MINUTES Angela Schmid, FRAMEMAN.NOODLE PRESS OPERATOR [address] [place] [address] Referral ID Status Reason Start Date Expiration Date Visits Requested Visits Authorized [id number] Authorized PCP Requested Referral 07/05/2023 07/04/2024 1 [...] or prosecute any alcohol or drug abuse patient.[facility] the event this information is protected by the Federal Confidentiality of Alcohol and Drug Abuse Patient Records regulations: The Federal rules restrict any use of the information to criminally investigate or prosecute any alcohol or drug abuse patient.[facility]In the event this information is protected by the Federal Confidentiality of Alcohol and Drug Abuse Patient Records regulations: The Federal rules restrict any use of the information to criminally investigate or prosecute any alcohol or drug abuse patient.[facility]In the event this information is protected by the Federal Confidentiality of Alcohol and Drug Abuse Patient Records regulations: The Federal rules restrict any use of the information to criminally investigate or prosecute any alcohol or drug abuse patient.[facility] HospitalIn the event this information is protected by the Federal Confidentiality of Alcohol and Drug Abuse Patient Records regulations: The Federal rules restrict any use of the information to criminally investigate or prosecute any alcohol or drug abuse patient.[facility]In the event this information is protected by the Federal Confidentiality of Alcohol and Drug Abuse Patient Records regulations: The Federal rules restrict any use of the information to criminally investigate or prosecute any alcohol or drug abuse patient.[facility]In the event this information is protected by the Federal Confidentiality of Alcohol and Drug Abuse Patient Records regulations: The Federal rules restrict any use of the information to criminally investigate or prosecute any alcohol or drug abuse patient.[facility]In the event this information is protected by the Federal Confidentiality of Alcohol and Drug Abuse Patient Records regulations: The Federal rules restrict any use of the information to criminally investigate or prosecute any alcohol or drug abuse patient.[facility]In the event this information is protected by the Federal Confidentiality of Alcohol and Drug Abuse Patient Records regulations: The Federal rules restrict any use of the information to criminally investigate or prosecute any alcohol or drug abuse patient.[facility]In the event this information is protected by the Federal Confidentiality of Alcohol and Drug Abuse Patient Records regulations: The Federal rules restrict any use of the information to criminally investigate or prosecute any alcohol or drug abuse patient.[facility] HospitalIn the event this information is protected by the Federal Confidentiality of Alcohol and Drug Abuse Patient Records regulations: The Federal rules restrict any use of the information to criminally investigate or prosecute any alcohol or drug abuse patient.[facility] HospitalIn the event this information is protected by the Federal Confidentiality of Alcohol and Drug Abuse Patient Records regulations: The Federal rules restrict any use of the information to criminally investigate or prosecute any alcohol or drug abuse patient.[facility] HospitalIn the event this information is protected by the Federal Confidentiality of Alcohol and Drug Abuse Patient Records regulations: The Federal rules restrict any use of the information to criminally investigate or prosecute any alcohol or drug abuse patient.[facility] HospitalIn the event this information is protected by the Federal Confidentiality of Alcohol and Drug Abuse Patient Records regulations: The Federal rules restrict any use of the information to criminally investigate or prosecute any alcohol or drug abuse patient.[facility] HospitalIn the event this information is protected by the Federal Confidentiality of Alcohol and Drug Abuse Patient Records regulations: The Federal rules restrict any use of the information to criminally investigate or prosecute any alcohol or drug abuse patient.[facility] HospitalIn the event this information is protected by the Federal Confidentiality of Alcohol and Drug Abuse Patient Records regulations: The Federal rules restrict any use of the information to criminally investigate or prosecute any alcohol or drug abuse patient.[facility] HospitalIn the event this information is protected by the Federal Confidentiality of Alcohol and Drug Abuse Patient Records regulations: The Federal rules restrict any use of the information to criminally investigate or prosecute any alcohol or drug abuse patient.[facility] HospitalIn the event this information is protected by the Federal Confidentiality of Alcohol and Drug Abuse Patient Records regulations: The Federal rules restrict any use of the information to criminally investigate or prosecute any alcohol or drug abuse patient.[facility] HospitalIn the event this information is protected by the Federal Confidentiality of Alcohol and Drug Abuse Patient Records regulations: The Federal rules restrict any use of the information to criminally investigate or prosecute any alcohol or drug abuse patient.[facility] HospitalIn the event this information is protected by the Federal Confidentiality of Alcohol and Drug Abuse Patient Records regulations: The Federal rules restrict any use of the information to criminally investigate or prosecute any alcohol or drug abuse patient.[facility] HospitalIn the event this information is protected by the Federal Confidentiality of Alcohol and Drug Abuse Patient Records regulations: The Federal rules restrict any use of the information to criminally investigate or prosecute any alcohol or drug abuse patient.[facility] HospitalIn the event this information is protected by the Federal Confidentiality of Alcohol and Drug Abuse Patient Records regulations: The Federal rules restrict any use of the information to criminally investigate or prosecute any alcohol or drug abuse patient.[facility] HospitalIn the event this information is protected by the Federal Confidentiality of Alcohol and Drug Abuse Patient Records regulations: The Federal rules restrict any use of the information to criminally investigate or prosecute any alcohol or drug abuse patient.[facility] HospitalIn the event this information is protected by the Federal Confidentiality of Alcohol and Drug Abuse Patient Records regulations: The Federal rules restrict any use of the information to criminally investigate or prosecute any alcohol or drug abuse patient.[facility] HospitalIn the event this information is protected by the Federal Confidentiality of Alcohol and Drug Abuse Patient Records regulations: The Federal rules restrict any use of the information to criminally investigate or prosecute any alcohol or drug abuse patient.[facility] HospitalIn the event this information is protected by the Federal Confidentiality of Alcohol and Drug Abuse Patient Records regulations: The Federal rules restrict any use of the information to criminally investigate or prosecute any alcohol or drug abuse patient.[facility] HospitalIn the event this information is protected by the Federal Confidentiality of Alcohol and Drug Abuse Patient Records regulations: The Federal rules restrict any use of the information to criminally investigate or prosecute any alcohol or drug abuse patient.[facility] HospitalIn the event this information is protected by the Federal Confidentiality of Alcohol and Drug Abuse Patient Records regulations: The Federal rules restrict any use of the information to criminally investigate or prosecute any alcohol or drug abuse patient.[facility] HospitalIn the event this information is protected by the Federal Confidentiality of Alcohol and Drug Abuse Patient Records regulations: The Federal rules restrict any use of the information to criminally investigate or prosecute any alcohol or drug abuse patient.[facility] HospitalIn the event this information is protected by the Federal Confidentiality of Alcohol and Drug Abuse Patient Records regulations: The Federal rules restrict any use of the information to criminally investigate or prosecute any alcohol or drug abuse patient.[facility] HospitalIn the event this information is protected by the Federal Confidentiality of Alcohol and Drug Abuse Patient Records regulations: The Federal rules restrict any use of the information to criminally investigate or prosecute any alcohol or drug abuse patient.[facility] HospitalIn the event this information is protected by the Federal Confidentiality of Alcohol and Drug Abuse Patient Records regulations: The Federal rules restrict any use of the information to criminally investigate or prosecute any alcohol or drug abuse patient.[facility] HospitalIn the event this information is protected by the Federal Confidentiality of Alcohol and Drug Abuse Patient Records regulations: The Federal rules restrict any use of the information to criminally investigate or prosecute any alcohol or drug abuse patient.[facility] HospitalIn the event this information is protected by the Federal Confidentiality of Alcohol and Drug Abuse Patient Records regulations: The Federal rules restrict any use of the information to criminally investigate or prosecute any alcohol or drug abuse patient.[facility]In the event this information is protected by the Federal Confidentiality of Alcohol and Drug Abuse Patient Records regulations: The Federal rules restrict any use of the information to criminally investigate or prosecute any alcohol or drug abuse patient.[facility] HospitalIn the event this information is protected by the Federal Confidentiality of Alcohol and Drug Abuse Patient Records regulations: The Federal rules restrict any use of the information to criminally investigate or prosecute any alcohol or drug abuse patient.[facility] HospitalIn the event this information is protected by the Federal Confidentiality of Alcohol and Drug Abuse Patient Records regulations: The Federal rules restrict any use of the information to criminally investigate or prosecute any alcohol or drug abuse patient.[facility] HospitalIn the event this information is protected by the Federal Confidentiality of Alcohol and Drug Abuse Patient Records regulations: The Federal rules restrict any use of the information to criminally investigate or prosecute any alcohol or drug abuse patient.[facility] HospitalIn the event this information is protected by the Federal Confidentiality of Alcohol and Drug Abuse Patient Records regulations: The Federal rules restrict any use of the information to criminally investigate or prosecute any alcohol or drug abuse patient.[facility] HospitalIn the event this information is protected by the Federal Confidentiality of Alcohol and Drug Abuse Patient Records regulations: The Federal rules restrict any use of the information to criminally investigate or prosecute any alcohol or drug abuse patient.[facility] HospitalIn the event this information is protected by the Federal Confidentiality of Alcohol and Drug Abuse Patient Records regulations: The Federal rules restrict any use of the information to criminally investigate or prosecute any alcohol or drug abuse patient.[facility] HospitalIn the event this information is protected by the Federal Confidentiality of Alcohol and Drug Abuse Patient Records regulations: The Federal rules restrict any use of the information to criminally investigate or prosecute any alcohol or drug abuse patient.[facility] HospitalIn the event this information is protected by the Federal Confidentiality of Alcohol and Drug Abuse Patient Records regulations: The Federal rules restrict any use of the information to criminally investigate or prosecute any alcohol or drug abuse patient.[facility] HospitalIn the event this information is protected by the Federal Confidentiality of Alcohol and Drug Abuse Patient Records regulations: The Federal rules restrict any use of the information to criminally investigate or prosecute any alcohol or drug abuse patient.[facility] HospitalIn the event this information is protected by the Federal Confidentiality of Alcohol and Drug Abuse Patient Records regulations: The Federal rules restrict any use of the information to criminally investigate or prosecute any alcohol or drug abuse patient.[facility] HospitalIn the event this information is protected by the Federal Confidentiality of Alcohol and Drug Abuse Patient Records regulations: The Federal rules restrict any use of the information to criminally investigate or prosecute any alcohol or drug abuse patient.[facility] HospitalIn the event this information is protected by the Federal Confidentiality of Alcohol and Drug Abuse Patient Records regulations: The Federal rules restrict any use of the information to criminally investigate or prosecute any alcohol or drug abuse patient.[facility] HospitalIn the event this information is protected by the Federal Confidentiality of Alcohol and Drug Abuse Patient Records regulations: The Federal rules restrict any use of the information to criminally investigate or prosecute any alcohol or drug abuse patient.[facility] HospitalIn the event this information is protected by the Federal Confidentiality of Alcohol and Drug Abuse Patient Records regulations: The Federal rules restrict any use of the information to criminally investigate or prosecute any alcohol or drug abuse patient.[facility] HospitalIn the event this information is protected by the Federal Confidentiality of Alcohol and Drug Abuse Patient Records regulations: The Federal rules restrict any use of the information to criminally investigate or prosecute any alcohol or drug abuse patient.[facility] HospitalIn the event this information is protected by the Federal Confidentiality of Alcohol and Drug Abuse Patient Records regulations: The Federal rules restrict any use of the information to criminally investigate or prosecute any alcohol or drug abuse patient.[facility] HospitalIn the event this information is protected by the Federal Confidentiality of Alcohol and Drug Abuse Patient Records regulations: The Federal rules restrict any use of the information to criminally investigate or prosecute any alcohol or drug abuse patient.[facility] HospitalIn the event this information is protected by the Federal Confidentiality of Alcohol and Drug Abuse Patient Records regulations: The Federal rules restrict any use of the information to criminally investigate or prosecute any alcohol or drug abuse patient.[facility] HospitalIn the event this information is protected by the Federal Confidentiality of Alcohol and Drug Abuse Patient Records regulations: The Federal rules restrict any use of the information to criminally investigate or prosecute any alcohol or drug abuse patient.[facility] HospitalIn the event this information is protected by the Federal Confidentiality of Alcohol and Drug Abuse Patient Records regulations: The Federal rules restrict any use of the information to criminally investigate or prosecute any alcohol or drug abuse patient.[facility] HospitalIn the event this information is protected by the Federal Confidentiality of Alcohol and Drug Abuse Patient Records regulations: The Federal rules restrict any use of the information to criminally investigate or prosecute any alcohol or drug abuse patient.[facility] HospitalIn the event this information is protected by the Federal Confidentiality of Alcohol and Drug Abuse Patient Records regulations: The Federal rules restrict any use of the information to criminally investigate or prosecute any alcohol or drug abuse patient.[facility]In the event this information is protected by the Federal Confidentiality of Alcohol and Drug Abuse Patient Records regulations: The Federal rules restrict any use of the information to criminally investigate or prosecute any alcohol or drug abuse patient.[facility]In the event this information is protected by the Federal Confidentiality of Alcohol and Drug Abuse Patient Records regulations: The Federal rules restrict any use of the information to criminally investigate or prosecute any alcohol or drug abuse patient.[facility]In the event this information is protected by the Federal Confidentiality of Alcohol and Drug Abuse Patient Records regulations: The Federal rules restrict any use of the information to criminally investigate or prosecute any alcohol or drug abuse patient.[facility]In the event this information is protected by the Federal Confidentiality of Alcohol and Drug Abuse Patient Records regulations: The Federal rules restrict any use of the information to criminally investigate or prosecute any alcohol or drug abuse patient.[facility]In the event this information is protected by the Federal Confidentiality of Alcohol and Drug Abuse Patient Records regulations: The Federal rules restrict any use of the information to criminally investigate or prosecute any alcohol or drug abuse patient.[facility] HospitalIn the event this information is protected by the Federal Confidentiality of Alcohol and Drug Abuse Patient Records regulations: The Federal rules restrict any use of the information to criminally investigate or prosecute any alcohol or drug abuse patient.[facility]In the event this information is protected by the Federal Confidentiality of Alcohol and Drug Abuse Patient Records regulations: The Federal rules restrict any use of the information to criminally investigate or prosecute any alcohol or drug abuse patient.[facility] HospitalIn the event this information is protected by the Federal Confidentiality of Alcohol and Drug Abuse Patient Records regulations: The Federal rules restrict any use of the information to criminally investigate or prosecute any alcohol or drug abuse patient.[facility]In the event this information is protected by the Federal Confidentiality of Alcohol and Drug Abuse Patient Records regulations: The Federal rules restrict any use of the information to criminally investigate or prosecute any alcohol or drug abuse patient.[facility] HospitalIn the event this information is protected by the Federal Confidentiality of Alcohol and Drug Abuse Patient Records regulations: The Federal rules restrict any use of the information to criminally investigate or prosecute any alcohol or drug abuse patient.[facility]In the event this information is protected by the Federal Confidentiality of Alcohol and Drug Abuse Patient Records regulations: The Federal rules restrict any use of the information to criminally investigate or prosecute any alcohol or drug abuse patient.[facility]In the event this information is protected by the Federal Confidentiality of Alcohol and Drug Abuse Patient Records regulations: The Federal rules restrict any use of the information to criminally investigate or prosecute any alcohol or drug abuse patient.[facility]In the event this information is protected by the Federal Confidentiality of Alcohol and Drug Abuse Patient Records regulations: The Federal rules restrict any use of the information to criminally investigate or prosecute any alcohol or drug abuse patient.[facility]In the event this information is protected by the Federal Confidentiality of Alcohol and Drug Abuse Patient Records regulations: The Federal rules restrict any use of the information to criminally investigate or prosecute any alcohol or drug abuse patient.[facility]In the event this information is protected by the Federal Confidentiality of Alcohol and Drug Abuse Patient Records regulations: The Federal rules restrict any use of the information to criminally investigate or prosecute any alcohol or drug abuse patient.[facility]In the event this information is protected by the Federal Confidentiality of Alcohol and Drug Abuse Patient Records regulations: The Federal rules restrict any use of the information to criminally investigate or prosecute any alcohol or drug abuse patient.[facility]In the event this information is protected by the Federal Confidentiality of Alcohol and Drug Abuse Patient Records regulations: The Federal rules restrict any use of the information to criminally investigate or prosecute any alcohol or drug abuse patient.[facility]In the event this information is protected by the Federal Confidentiality of Alcohol and Drug Abuse Patient Records regulations: The Federal rules restrict any use of the information to criminally investigate or prosecute any alcohol or drug abuse patient.[facility]In the event this information is protected by the Federal Confidentiality of Alcohol and Drug Abuse Patient Records regulations: The Federal rules restrict any use of the information to criminally investigate or prosecute any alcohol or drug abuse patient.[facility]In the event this information is protected by the Federal Confidentiality of Alcohol and Drug Abuse Patient Records regulations: The Federal rules restrict any use of the information to criminally investigate or prosecute any alcohol or drug abuse patient.[facility] HospitalIn the event this information is protected by the Federal Confidentiality of Alcohol and Drug Abuse Patient Records regulations: The Federal rules restrict any use of the information to criminally investigate or prosecute any alcohol or drug abuse patient.[facility] HospitalIn the event this information is protected by the Federal Confidentiality of Alcohol and Drug Abuse Patient Records regulations: The Federal rules restrict any use of the information to criminally investigate or prosecute any alcohol or drug abuse patient.[facility] HospitalIn the event this information is protected by the Federal Confidentiality of Alcohol and Drug Abuse Patient Records regulations: The Federal rules restrict any use of the information to criminally investigate or prosecute any alcohol or drug abuse patient.[facility]In the event this information is protected by the Federal Confidentiality of Alcohol and Drug Abuse Patient Records regulations: The Federal rules restrict any use of the information to criminally investigate or prosecute any alcohol or drug abuse patient.[facility] HospitalIn the event this information is protected by the Federal Confidentiality of Alcohol and Drug Abuse Patient Records regulations: The Federal rules restrict any use of the information to criminally investigate or prosecute any alcohol or drug abuse patient.[facility] HospitalIn the event this information is protected by the Federal Confidentiality of Alcohol and Drug Abuse Patient Records regulations: The Federal rules restrict any use of the information to criminally investigate or prosecute any alcohol or drug abuse patient.[facility]In the event this information is protected by the Federal Confidentiality of Alcohol and Drug Abuse Patient Records regulations: The Federal rules restrict any use of the information to criminally investigate or prosecute any alcohol or drug abuse patient.[facility] HospitalIn the event this information is protected by the Federal Confidentiality of Alcohol and Drug Abuse Patient Records regulations: The Federal rules restrict any use of the information to criminally investigate or prosecute any alcohol or drug abuse patient.[facility]In the event this information is protected by the Federal Confidentiality of Alcohol and Drug Abuse Patient Records regulations: The Federal rules restrict any use of the information to criminally investigate or prosecute any alcohol or drug abuse patient.[facility]In the event this information is protected by the Federal Confidentiality of Alcohol and Drug Abuse Patient Records regulations: The Federal rules restrict any use of the information to criminally investigate or prosecute any alcohol or drug abuse patient.[facility] HospitalIn the event this information is protected by the Federal Confidentiality of Alcohol and Drug Abuse Patient Records regulations: The Federal rules restrict any use of the information to criminally investigate or prosecute any alcohol or drug abuse patient.[facility] HospitalIn the event this information is protected by the Federal Confidentiality of Alcohol and Drug Abuse Patient Records regulations: The Federal rules restrict any use of the information to criminally investigate or prosecute any alcohol or drug abuse patient.[facility] HospitalIn the event this information is protected by the Federal Confidentiality of Alcohol and Drug Abuse Patient Records regulations: The Federal rules restrict any use of the information to criminally investigate or prosecute any alcohol or drug abuse patient.[facility] HospitalIn the event this information is protected by the Federal Confidentiality of Alcohol and Drug Abuse Patient Records regulations: The Federal rules restrict any use of the information to criminally investigate or prosecute any alcohol or drug abuse patient.[facility] HospitalIn the event this information is protected by the Federal Confidentiality of Alcohol and Drug Abuse Patient Records regulations: The Federal rules restrict any use of the information to criminally investigate or prosecute any alcohol or drug abuse patient.[facility] HospitalIn the event this information is protected by the Federal Confidentiality of Alcohol and Drug Abuse Patient Records regulations: The Federal rules restrict any use of the information to criminally investigate or prosecute any alcohol or drug abuse patient.[facility] HospitalIn the event this information is protected by the Federal Confidentiality of Alcohol and Drug Abuse Patient Records regulations: The Federal rules restrict any use of the information to criminally investigate or prosecute any alcohol or drug abuse patient.[facility] HospitalIn the event this information is protected by the Federal Confidentiality of Alcohol and Drug Abuse Patient Records regulations: The Federal rules restrict any use of the information to criminally investigate or prosecute any alcohol or drug abuse patient.[facility]In the event this information is protected by the Federal Confidentiality of Alcohol and Drug Abuse Patient Records regulations: The Federal rules restrict any use of the information to criminally investigate or prosecute any alcohol or drug abuse patient.[facility]In the event this information is protected by the Federal Confidentiality of Alcohol and Drug Abuse Patient Records regulations: The Federal rules restrict any use of the information to criminally investigate or prosecute any alcohol or drug abuse patient.[facility] HospitalIn the event this information is protected by the Federal Confidentiality of Alcohol and Drug Abuse Patient Records regulations: The Federal rules restrict any use of the information to criminally investigate or prosecute any alcohol or drug abuse patient.[facility] HospitalIn the event this information is protected by the Federal Confidentiality of Alcohol and Drug Abuse Patient Records regulations: The Federal rules restrict any use of the information to criminally investigate or prosecute any alcohol or drug abuse patient.[facility]In the event this information is protected by the Federal Confidentiality of Alcohol and Drug Abuse Patient Records regulations: The Federal rules restrict any use of the information to criminally investigate or prosecute any alcohol or drug abuse patient.[facility] HospitalIn the event this information is protected by the Federal Confidentiality of Alcohol and Drug Abuse Patient Records regulations: The Federal rules restrict any use of the information to criminally investigate or prosecute any alcohol or drug abuse patient.[facility]In the event this information is protected by the Federal Confidentiality of Alcohol and Drug Abuse Patient Records regulations: The Federal rules restrict any use of the information to criminally investigate or prosecute any alcohol or drug abuse patient.[facility] HospitalIn the event this information is protected by the Federal Confidentiality of Alcohol and Drug Abuse Patient Records regulations: The Federal rules restrict any use of the information to criminally investigate or prosecute any alcohol or drug abuse patient.[facility] HospitalIn the event this information is protected by the Federal Confidentiality of Alcohol and Drug Abuse Patient Records regulations: The Federal rules restrict any use of the information to criminally investigate or prosecute any alcohol or drug abuse patient.[facility] HospitalIn the event this information is protected by the Federal Confidentiality of Alcohol and Drug Abuse Patient Records regulations: The Federal rules restrict any use of the information to criminally investigate or prosecute any alcohol or drug abuse patient.[facility] HospitalIn the event this information is protected by the Federal Confidentiality of Alcohol and Drug Abuse Patient Records regulations: The Federal rules restrict any use of the information to criminally investigate or prosecute any alcohol or drug abuse patient.[facility] HospitalIn the event this information is protected by the Federal Confidentiality of Alcohol and Drug Abuse Patient Records regulations: The Federal rules restrict any use of the information to criminally investigate or prosecute any alcohol or drug abuse patient.[facility]In the event this information is protected by the Federal Confidentiality of Alcohol and Drug Abuse Patient Records regulations: The Federal rules restrict any use of the information to criminally investigate or prosecute any alcohol or drug abuse patient.[facility]In the event this information is protected by the Federal Confidentiality of Alcohol and Drug Abuse Patient Records regulations: The Federal rules restrict any use of the information to criminally investigate or prosecute any alcohol or drug abuse patient.[facility] HospitalIn the event this information is protected by the Federal Confidentiality of Alcohol and Drug Abuse Patient Records regulations: The Federal rules restrict any use of the information to criminally investigate or prosecute any alcohol or drug abuse patient.[facility] HospitalIn the event this information is protected by the Federal Confidentiality of Alcohol and Drug Abuse Patient Records regulations: The Federal rules restrict any use of the information to criminally investigate or prosecute any alcohol or drug abuse patient.[facility] HospitalIn the event this information is protected by the Federal Confidentiality of Alcohol and Drug Abuse Patient Records regulations: The Federal rules restrict any use of the information to criminally investigate or prosecute any alcohol or drug abuse patient.[facility]In the event this information is protected by the Federal Confidentiality of Alcohol and Drug Abuse Patient Records regulations: The Federal rules restrict any use of the information to criminally investigate or prosecute any alcohol or drug abuse patient.[facility]In the event this information is protected by the Federal Confidentiality of Alcohol and Drug Abuse Patient Records regulations: The Federal rules restrict any use of the information to criminally investigate or prosecute any alcohol or drug abuse patient.[facility]In the event this information is protected by the Federal Confidentiality of Alcohol and Drug Abuse Patient Records regulations: The Federal rules restrict any use of the information to criminally investigate or prosecute any alcohol or drug abuse patient.[facility]In the event this information is protected by the Federal Confidentiality of Alcohol and Drug Abuse Patient Records regulations: The Federal rules restrict any use of the information to criminally investigate or prosecute any alcohol or drug abuse patient.[facility]In the event this information is protected by the Federal Confidentiality of Alcohol and Drug Abuse Patient Records regulations: The Federal rules restrict any use of the information to criminally investigate or prosecute any alcohol or drug abuse patient.[facility]In the event this information is protected by the Federal Confidentiality of Alcohol and Drug Abuse Patient Records regulations: The Federal rules restrict any use of the information to criminally investigate or prosecute any alcohol or drug abuse patient.[facility]In the event this information is protected by the Federal Confidentiality of Alcohol and Drug Abuse Patient Records regulations: The Federal rules restrict any use of the information to criminally investigate or prosecute any alcohol or drug abuse patient.[facility]In the event this information is protected by the Federal Confidentiality of Alcohol and Drug Abuse Patient Records regulations: The Federal rules restrict any use of the information to criminally investigate or prosecute any alcohol or drug abuse patient.[facility]In the event this information is protected by the Federal Confidentiality of Alcohol and Drug Abuse Patient Records regulations: The Federal rules restrict any use of the information to criminally investigate or prosecute any alcohol or drug abuse patient.[facility]In the event this information is protected by the Federal Confidentiality of Alcohol and Drug Abuse Patient Records regulations: The Federal rules restrict any use of the information to criminally investigate or prosecute any alcohol or drug abuse patient.[facility]In the event this information is protected by the Federal Confidentiality of Alcohol and Drug Abuse Patient Records regulations: The Federal rules restrict any use of the information to criminally investigate or prosecute any alcohol or drug abuse patient.[facility]In the event this information is protected by the Federal Confidentiality of Alcohol and Drug Abuse Patient Records regulations: The Federal rules restrict any use of the information to criminally investigate or prosecute any alcohol or drug abuse patient.[facility]In the event this information is protected by the Federal Confidentiality of Alcohol and Drug Abuse Patient Records regulations: The Federal rules restrict any use of the information to criminally investigate or prosecute any alcohol or drug abuse patient.[facility]In the event this information is protected by the Federal Confidentiality of Alcohol and Drug Abuse Patient Records regulations: The Federal rules restrict any use of the information to criminally investigate or prosecute any alcohol or drug abuse patient.[facility]In the event this information is protected by the Federal Confidentiality of Alcohol and Drug Abuse Patient Records regulations: The Federal rules restrict any use of the information to criminally investigate or prosecute any alcohol or drug abuse patient.[facility]In the event this information is protected by the Federal Confidentiality of Alcohol and Drug Abuse Patient Records regulations: The Federal rules restrict any use of the information to criminally investigate or prosecute any alcohol or drug abuse patient.[facility]In the event this information is protected by the Federal Confidentiality of Alcohol and Drug Abuse Patient Records regulations: The Federal rules restrict any use of the information to criminally investigate or prosecute any alcohol or drug abuse patient.[facility]In the event this information is protected by the Federal Confidentiality of Alcohol and Drug Abuse Patient Records regulations: The Federal rules restrict any use of the information to criminally investigate or prosecute any alcohol or drug abuse patient.[facility]In the event this information is protected by the Federal Confidentiality of Alcohol and Drug Abuse Patient Records regulations: The Federal rules restrict any use of the information to criminally investigate or prosecute any alcohol or drug abuse patient.[facility]In the event this information is protected by the Federal Confidentiality of Alcohol and Drug Abuse Patient Records regulations: The Federal rules restrict any use of the information to criminally investigate or prosecute any alcohol or drug abuse patient.[facility]In the event this information is protected by the Federal Confidentiality of Alcohol and Drug Abuse Patient Records regulations: The Federal rules restrict any use of the information to criminally investigate or prosecute any alcohol or drug abuse patient.[facility]In the event this information is protected by the Federal Confidentiality of Alcohol and Drug Abuse Patient Records regulations: The Federal rules restrict any use of the information to criminally investigate or prosecute any alcohol or drug abuse patient.[facility]In the event this information is protected by the Federal Confidentiality of Alcohol and Drug Abuse Patient Records regulations: The Federal rules restrict any use of the information to criminally investigate or prosecute any alcohol or drug abuse patient.[facility]In the event this information is protected by the Federal Confidentiality of Alcohol and Drug Abuse Patient Records regulations: The Federal rules restrict any use of the information to criminally investigate or prosecute any alcohol or drug abuse patient.[facility]In the event this information is protected by the Federal Confidentiality of Alcohol and Drug Abuse Patient Records regulations: The Federal rules restrict any use of the information to criminally investigate or prosecute any alcohol or drug abuse patient.[facility]In the event this information is protected by the Federal Confidentiality of Alcohol and Drug Abuse Patient Records regulations: The Federal rules restrict any use of the information to criminally investigate or prosecute any alcohol or drug abuse patient.[facility]In the event this information is protected by the Federal Confidentiality of Alcohol and Drug Abuse Patient Records regulations: The Federal rules restrict any use of the information to criminally investigate or prosecute any alcohol or drug abuse patient.[facility]In the event this information is protected by the Federal Confidentiality of Alcohol and Drug Abuse Patient Records regulations: The Federal rules restrict any use of the information to criminally investigate or prosecute any alcohol or drug abuse patient.[facility]In the event this information is protected by the Federal Confidentiality of Alcohol and Drug Abuse Patient Records regulations: The Federal rules restrict any use of the information to criminally investigate or prosecute any alcohol or drug abuse patient.[facility]In the event this information is protected by the Federal Confidentiality of Alcohol and Drug Abuse Patient Records regulations: The Federal rules restrict any use of the information to criminally investigate or prosecute any alcohol or drug abuse patient.[facility]In the event this information is protected by the Federal Confidentiality of Alcohol and Drug Abuse Patient Records regulations: The Federal rules restrict any use of the information to criminally investigate or prosecute any alcohol or drug abuse patient.[facility]In the event this information is protected by the Federal Confidentiality of Alcohol and Drug Abuse Patient Records regulations: The Federal rules restrict any use of the information to criminally investigate or prosecute any alcohol or drug abuse patient.[facility]In the event this information is protected by the Federal Confidentiality of Alcohol and Drug Abuse Patient Records regulations: The Federal rules restrict any use of the information to criminally investigate or prosecute any alcohol or drug abuse patient.[facility]In the event this information is protected by the Federal Confidentiality of Alcohol and Drug Abuse Patient Records regulations: The Federal rules restrict any use of the information to criminally investigate or prosecute any alcohol or drug abuse patient.[facility]In the event this information is protected by the Federal Confidentiality of Alcohol and Drug Abuse Patient Records regulations: The Federal rules restrict any use of the information to criminally investigate or prosecute any alcohol or drug abuse patient.[facility]In the event this information is protected by the Federal Confidentiality of Alcohol and Drug Abuse Patient Records regulations: The Federal rules restrict any use of the information to criminally investigate or prosecute any alcohol or drug abuse patient.[facility]In the event this information is protected by the Federal Confidentiality of Alcohol and Drug Abuse Patient Records regulations: The Federal rules restrict any use of the information to criminally investigate or prosecute any alcohol or drug abuse patient.[facility]In the event this information is protected by the Federal Confidentiality of Alcohol and Drug Abuse Patient Records regulations: The Federal rules restrict any use of the information to criminally investigate or prosecute any alcohol or drug abuse patient.[facility] HospitalIn the event this information is protected by the Federal Confidentiality of Alcohol and Drug Abuse Patient Records regulations: The Federal rules restrict any use of the information to criminally investigate or prosecute any alcohol or drug abuse patient.[facility] HospitalIn the event this information is protected by the Federal Confidentiality of Alcohol and Drug Abuse Patient Records regulations: The Federal rules restrict any use of the information to criminally investigate or prosecute any alcohol or drug abuse patient.[facility] HospitalIn the event this information is protected by the Federal Confidentiality of Alcohol and Drug Abuse Patient Records regulations: The Federal rules restrict any use of the information to criminally investigate or prosecute any alcohol or drug abuse patient.[facility] HospitalIn the event this information is protected by the Federal Confidentiality of Alcohol and Drug Abuse Patient Records regulations: The Federal rules restrict any use of the information to criminally investigate or prosecute any alcohol or drug abuse patient.[facility] HospitalIn the event this information is protected by the Federal Confidentiality of Alcohol and Drug Abuse Patient Records regulations: The Federal rules restrict any use of the information to criminally investigate or prosecute any alcohol or drug abuse patient.[facility] HospitalIn the event this information is protected by the Federal Confidentiality of Alcohol and Drug Abuse Patient Records regulations: The Federal rules restrict any use of the information to criminally investigate or prosecute any alcohol or drug abuse patient.[facility] HospitalIn the event this information is protected by the Federal Confidentiality of Alcohol and Drug Abuse Patient Records regulations: The Federal rules restrict any use of the information to criminally investigate or prosecute any alcohol or drug abuse patient.[facility] HospitalIn the event this information is protected by the Federal Confidentiality of Alcohol and Drug Abuse Patient Records regulations: The Federal rules restrict any use of the information to criminally investigate or prosecute any alcohol or drug abuse patient.[facility] HospitalIn the event this information is protected by the Federal Confidentiality of Alcohol and Drug Abuse Patient Records regulations: The Federal rules restrict any use of the information to criminally investigate or prosecute any alcohol or drug abuse patient.[facility] HospitalIn the event this information is protected by the Federal Confidentiality of Alcohol and Drug Abuse Patient Records regulations: The Federal rules restrict any use of the information to criminally investigate or prosecute any alcohol or drug abuse patient.[facility] HospitalIn the event this information is protected by the Federal Confidentiality of Alcohol and Drug Abuse Patient Records regulations: The Federal rules restrict any use of the information to criminally investigate or prosecute any alcohol or drug abuse patient.[facility] HospitalIn the event this information is protected by the Federal Confidentiality of Alcohol and Drug Abuse Patient Records regulations: The Federal rules restrict any use of the information to criminally investigate or prosecute any alcohol or drug abuse patient.[facility] HospitalIn the event this information is protected by the Federal Confidentiality of Alcohol and Drug Abuse Patient Records regulations: The Federal rules restrict any use of the information to criminally investigate or prosecute any alcohol or drug abuse patient.[facility] HospitalIn the event this information is protected by the Federal Confidentiality of Alcohol and Drug Abuse Patient Records regulations: The Federal rules restrict any use of the information to criminally investigate or prosecute any alcohol or drug abuse patient.[facility] HospitalIn the event this information is protected by the Federal Confidentiality of Alcohol and Drug Abuse Patient Records regulations: The Federal rules restrict any use of the information to criminally investigate or prosecute any alcohol or drug abuse patient.[facility] HospitalIn the event this information is protected by the Federal Confidentiality of Alcohol and Drug Abuse Patient Records regulations: The Federal rules restrict any use of the information to criminally investigate or prosecute any alcohol or drug abuse patient.[facility] HospitalIn the event this information is protected by the Federal Confidentiality of Alcohol and Drug Abuse Patient Records regulations: The Federal rules restrict any use of the information to criminally investigate or prosecute any alcohol or drug abuse patient.[facility] HospitalIn the event this information is protected by the Federal Confidentiality of Alcohol and Drug Abuse Patient Records regulations: The Federal rules restrict any use of the information to criminally investigate or prosecute any alcohol or drug abuse patient.[facility] HospitalIn the event this information is protected by the Federal Confidentiality of Alcohol and Drug Abuse Patient Records regulations: The Federal rules restrict any use of the information to criminally investigate or prosecute any alcohol or drug abuse patient.[facility] HospitalIn the event this information is protected by the Federal Confidentiality of Alcohol and Drug Abuse Patient Records regulations: The Federal rules restrict any use of the information to criminally investigate or prosecute any alcohol or drug abuse patient.[facility] HospitalIn the event this information is protected by the Federal Confidentiality of Alcohol and Drug Abuse Patient Records regulations: The Federal rules restrict any use of the information to criminally investigate or prosecute any alcohol or drug abuse patient.[facility] HospitalIn the event this information is protected by the Federal Confidentiality of Alcohol and Drug Abuse Patient Records regulations: The Federal rules restrict any use of the information to criminally investigate or prosecute any alcohol or drug abuse patient.[facility] HospitalIn the event this information is protected by the Federal Confidentiality of Alcohol and Drug Abuse Patient Records regulations: The Federal rules restrict any use of the information to criminally investigate or prosecute any alcohol or drug abuse patient.[facility] HospitalIn the event this information is protected by the Federal Confidentiality of Alcohol and Drug Abuse Patient Records regulations: The Federal rules restrict any use of the information to criminally investigate or prosecute any alcohol or drug abuse patient.[facility] Reason for Visit (unrecogniz ed section [...] Date Comments Population Health Navigation Outreach 09/23/2021 [place] Reason Onset Date Comments Refill Request 10/15/2021 Reason Comments Physical Patient reports he w as in [facility] on 10/18/21 and was sent to ER for low SPO2 Reason Onset Date Comments Population Health Navigation Outreach 11/03/2021 [place] Attribution Reason Comments Results Reason Comments Patient [...] Procedures CONSULT TO CARDIOLOGY OFFICE/OUTPATIENT [facility] 60-74 MINUTES Alyson Arthur MD [address] [place] [address] Referral ID Status Reason Start Date Expiration Date Visits Requested Visits Authorized [id number] Pending Review PCP Requested Referral 05/20/2022 05/20/2023 [...] neuropathy, with long-term current use of insulin ([facility]) Procedures CONSULT TO OPHTHALMOLOGY OFFICE/OUTPATIENT [facility] 60-74 MINUTES Alyson Arthur MD [address] [place] [address] Referral ID Status Reason Start Date Expiration Date Visits Requested Visits Authorized [id number] Pending Review PCP Requested Referral 05/20/2022 05/20/2023 [...] a motorize d scooter to go to [facility] Reason Comments Follow Up Reason Comments Appointment [...] skin Procedures CONSULT TO GENERAL SURGERY OFFICE/OUTPATIENT [facility] 60-74 MINUTES Alyson Arthur MD [address] [place] [address] Referral ID Status Reason Start Date Expiration Date Visits Requested Visits Authorized [id number] Pending Review PCP Requested Referral 10/25/2022 10/25/2023 1 1 Reason Comments Patient Request/ CPAP Order Fax Reason Comments Orders Reason Comments Spirometry Specialty Diagnoses / Procedures Referred By Contac t Referred To Contact [facility] Diagnoses Encounter for preprocedural cardiovascular examination Sleep apnea, unspecified type Bicuspid aortic valve Nonrheumatic aortic valve stenosis Preoperative testing Procedures LUNG DIFFUSION CAPACITY (DLCO) DIFFUSING CAPACITY Leandro Foster, FRAMEMAN.NOODLE PRESS OPERATOR [address] [place] [address] [place] [address] Referral ID Status Reason Start Date Expiration Date V isits Requested Visits Authorized [id number] Closed Auto-Generate d Referral OON/Self Pay Override 11/08/2022 12/08/2023 1 1 Specialty Diagnoses / Procedures Referred By Contac t Referred To Contact [facility] Diagnoses Encounter for preprocedural cardiovascular examination Sleep apnea, unspecified type Bicuspid aortic valve Nonrheumatic aortic valve stenosis Preoperative testing Procedures LUNG VOLUMES Leandro Foster FRAMEMAN.NOODLE PRESS OPERATOR [address] [place] [address] [place] [address] Referral ID Status Reason Start Date Expiration Date V isits Requested Visits Authorized [id number] Closed Auto-Generate d Referral OON/Self Pay Override 11/09/2022 02/12/2023 1 1 Specialty Diagnoses / Procedures Referred By Contac t Referred To Contact [facility] Diagnoses Encounter for preprocedural cardiovascular examination Sleep apnea, unspecified type Bicuspid aortic valve Nonrheumatic aortic valve stenosis Preoperative testing Procedures SPIROMETRY BASELINE ONLY SPMTRY W/VC EXPIRATORY JUAN W/WO MXML VOL VNTJ Leandro Foster, FRAMEMAN.NOODLE PRESS OPERATOR [address] [place] [address] [place] [address] Referral ID Status Reason Start Date Expiration Date V isits Requested Visits Authorized [id number] Closed Auto-Generate d Referral OON/Self Pay Override [...] ABD&PLVIS CNTRST MTRL W/WO CNTRST Leandro Jesus, FRAMEMAN.NOODLE PRESS OPERATOR [address] [place] [address] [place] [address] Referral ID Status Reason Start Date Expiration Date V isits Requested Visits Authorized [id number] Closed Auto-Generate d Referral 11/08/2022 12/08/2023 1 [...] MDM 60-74 MINUTES Pascual Bacon MD [address] [place] [address] Referral ID Status Reason Start Date Expiration Date Visits Requested Visits Authorized [id number] Pending Review PCP Requested Referral 11/30/2023 1 [...] LW DOSE LNG CA SCR Nathen- Amauri oJ, FRAMEMAN.NOODLE PRESS OPERATOR [address] [place] [address] [place] [address] Referral ID Status Reason Start Date Expiration Date V isits Requested Visits Authorized [id number] Closed Auto-Generate d Referral 06/28/2022 07/28/2023 1 [...] 2 diabetes mellitus without complication, unspecified whether residential insulin use (HCC) Pre-operative cardiovascular examination Aortic valve disorder 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) Procedures CARDIOTHORACIC PREOP EVALUATION OFFICE/OUTPATIENT [facility] 60 MINUTES Shlomo Alcocer MD [address] [place] [id number] Referral ID Status Reason Start Date Expiration Date V isits Requested Visits Authorized [id number] Closed PCP Requested Referral 03/02/2023 03/01/2024 1 1 Reason Comments Patient Education Specialty Diagnoses / Procedures Referred By Contac t Referred To Contact Cardiac Surg Diagnoses Controlled type 2 diabetes mellitus without complication, unspecified whether residential insulin use (HCC) Pre-operative cardiovascular examination Aortic valve disorder 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) Procedures CARDIOTHORACIC PREOP EVALUATION OFFICE/OUTPATIENT [facility] 60 MINUTES Shlomo Alcocer MD [address] [place] [id number] Specialty Diagnoses / Procedures Referred By Contac t Referred To Contact Cardiology Diagnoses Controlled type 2 diabetes mellitus without complication, unspecified whether terminal operator insulin use (HCC) Pre-operative cardiovascular examination Aortic valve disorder 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) Procedures CONSULT TO CARDIOLOGY OFFICE/OUTPATIENT [facility] 60 MINUTES Shlomo Alcocer MD [address] [id number] Referral ID Status Reason Start Date Expiration Date V isits Requested Visits Authorized [id number] Closed PCP Requested Referral 03/02/2023 03/01/2024 1 1 Reason Comments Request for discharge instructions from [facility] [place] on Reason Comments Appointment Reason Comments requesting [...] 06/26/2023 Specialty Diagnoses / Procedures [facility] Ref[facility] To Contact [facility] Diagnoses 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) Procedures CTA CHEST (GATED) W IVCON CT ANGIOGRAPHY CHEST W/CONTRAST/NONCONTRAST Elma Hester APRN.NOODLE PRESS OPERATOR [address] [place] [address] [facility] [place] [address] Referral ID Status Reason Start Date Expiration Date V isits Requested Visits Authorized [id number] Closed Auto-Generate d Referral 03/28/2023 04/26/2024 1 1 Reason Comments FYI-PT Home Health Update Reason Comments Home Health Update Reason Comments OT requesting verbal order Reason Comments FYI-PT plan of care Reason Comments New Patient New Patient Evaluation Reason Comments Hospital Follow Up Reason Comments Home Health Point of Care Results Reason Onset Date Comments Refill Request 07/25/2023 Reason Comments [facility] PT- discharged pt today Reason Onset [...] payer Specialty Diagnoses / Procedures [facility] Referred To Contact [facility] Diagnoses xray Procedures XRAY EXAM OF RIBS/CHEST TC Alyson Arthur MD [address] [place] [address] [facility] [address] [place] [address] Referral ID Status Reason Start Date Expiration Date V isits Requested Visits Authorized [id number] Closed OON/Self Pay Override 10/25/2022 04/23/2023 1 [...] Date Comments Care Coordination 05/21/2024 Referred to [facility] Reason Onset Date Comments [...] THORAX LW DOSE LNG CA Tony Arroyo, FRAMEMAN.NOODLE PRESS OPERATOR [address] [place] [address] Phone: tel: fax: [facility] [place] [phone] Referral ID Status Reason Start Date Expiration Date V isits Requested Visits Authorized [id number] Closed Auto-Generate d Referral 04/04/2024 05/04/2025 [address] Specialty Diagnoses / Procedures Referred By Contac t Referred To Contact CT IMAGING Diagnoses Cigarette smoker Procedures CT LUNG SCREEN WO IVCON COMPUTED TOMOGRAPHY THORAX LW DOSE LNG CA Tony Arroyo, FRAMEMAN.NOODLE PRESS OPERATOR [address] [place] [address] Phone: tel: fax: [facility] [place] [address] Referral ID Status Reason Start Date Expiration Date V isits Requested Visits Authorized [id number] Closed Auto-Generate d Referral 04/04/2024 05/04/2025 1 1 Reason Onset Date Comments Refill Request 09/13/2024 Reason Comments Appointment Needs testing Reason Onset Date Comments Population Health Navigation Outreach 10/03/[address] [facility] Teams (unrecognized sec tion and content) Technical Services Librarian Relationship Specialty Start Date End Date Alyson Arthur MD [address] [facility], [place] [address] PCP - General Family Practice 11/09/12 Technical Services Librarian Relationship Specialty Start Date End Date Alyson Arthur MD [address] [place] [address] PCP - General Family Practice 11/09/12 Technical Services Librarian Relationship Specialty Start Date End Date Alyson Arthur MD [address] [place] [address] PCP - General Family Practice 11/09/12 Technical Services Librarian Relationship Specialty Start Date End Date Alyson Arthur MD [address] [facility], [place] [address] PCP - General Family Practice 11/09/12 Technical Services Librarian Relationship Specialty Start Date End Date Alyson Arthur MD [address] [place] [address] PCP - General Family Practice 11/09/12 Technical Services Librarian Relationship Specialty Start Date End Date Alyson Arthur MD [address] [place] [address] PCP - General Family Practice 11/09/12 Technical Services Librarian Relationship Specialty Start Date End Date Alyson Arthur MD [address] [place] [address] PCP - General Family Practice 11/09/12 Technical Services Librarian Relationship Specialty Start Date End Date Alyson Arthur MD [address] [place] [address] PCP - General Family Practice 11/09/12 Technical Services Librarian Relationship Specialty Start Date End Date Alyson Arthur MD [address] [place] [address] PCP - General Family Practice 11/09/12 Technical Services Librarian Relationship Specialty Start Date End Date Alyson Arthur MD [address] [place] [address] PCP - General Family Medicine 11/09/12 Technical Services Librarian Relationship Specialty Start Date End Date Alyson Arthur MD [address] [place] [address] PCP - General Family Medicine 11/09/12 Technical Services Librarian Relationship Specialty Start Date End Date Alyson Arthur MD [address] [place] [address] PCP - General Family Medicine 11/09/12 Technical Services Librarian Relationship Specialty Start Date End Date Alyson Arthur MD [address] [place] [address] PCP - General Family Medicine 11/09/12 Technical Services Librarian Relationship Specialty Start Date End Date Alyson Arthur MD [address] [place] [address] PCP - General Family Medicine 11/09/12 Technical Services Librarian Relationship Specialty Start Date End Date Alyson Arthur MD [address] [place] [address] PCP - General Family Medicine 11/09/12 Technical Services Librarian Relationship Specialty Start Date End Date Alyson Arthur MD [address] [place] [address] PCP - General Family Medicine 11/09/12 Team Status: Active Member Role Status Dates Dr. Alyson Arthur MD Family Provider Active Alyson Arthur Primary Care Provider Active Team Status: Inactive Member Role Status Dates Alyson Arthur Primary Care Provider Active Dr. Walter Sellers MD Attending Provider Active Technical Services Librarian Relationship Specialty Start Date End Date Alyson Arthur MD [address] [place] [address] PCP - General Family Medicine 11/09/12 Technical Services Librarian Relationship Specialty Start Date End Date Alyson Arthur MD [address] [place] [address] PCP - General Family Medicine 11/09/12 Technical Services Librarian Relationship Specialty Start Date End Date Alyson Arthur MD [address] [place] [address] PCP - General Family Medicine 11/09/12 Technical Services Librarian Relationship Specialty Start Date End Date Alyson Arthur MD [address] [place] [address] PCP - General Family Medicine 11/09/12 Technical Services Librarian Relationship Specialty Start Date End Date Alyson Arthur MD [address] [place] [address] PCP - General Family Medicine 11/09/12 Technical Services Librarian Relationship Specialty Start Date End Date Alyson Arthur MD [address] [place] [address] PCP - General Family Medicine 11/09/12 Technical Services Librarian Relationship Specialty Start Date End Date Alyson Arthur MD [address] [place] [address] PCP - General Family Medicine 11/09/12 Technical Services Librarian Relationship Specialty Start Date End Date Alyson Arthur MD [address] [place] [address] PCP - General Family Medicine 11/09/12 Technical Services Librarian Relationship Specialty Start Date End Date Alyson Arthur MD [address] [place] [address] PCP - General Family Medicine 11/09/12 Technical Services Librarian Relationship Specialty Start Date End Date Alyson Arthur MD [address] [place] [address] PCP - General Family Medicine 11/09/12 Technical Services Librarian Relationship Specialty Start Date End Date Alyson Arthur MD [address] [place] [address] PCP - General Family Medicine 11/09/12 Team [...] Alyson Arthur MD Primary Care Provider Active Technical Services Librarian Relationship Specialty Start Date End Date Alyson Arthur MD [address] [place] [address] PCP - General Family Medicine 11/09/12 Technical Services Librarian Relationship Specialty Start Date End Date Alyson Arthur MD [address] [place] [address] PCP - General Family Medicine 11/09/12 Technical Services Librarian Relationship Specialty Start Date End Date Alyson Arthur MD [address] [place] [address] PCP - General Family Medicine 11/09/12 Technical Services Librarian Relationship Specialty Start Date End Date Alyson Arthur MD [address] [place] [address] PCP - General Family Medicine 11/09/12 Technical Services Librarian Relationship Specialty Start Date End Date Alyson Arthur MD [address] [place], [place] [address] PCP - General Family Medicine 11/09/12 Team [...] MD Admit Provider, Attending Prov ider Active Technical Services Librarian Relationship Specialty Start Date End Date Alyson Arthur MD [address] [place], [place] [address] PCP - General Family Medicine 11/09/12 Technical Services Librarian Relationship Specialty Start Date End Date Alyson Arthur MD [address] [place], [place] [address] PCP - General Family Medicine 11/09/12 Technical Services Librarian Relationship Specialty Start Date End Date Alyson Arthur MD [address] [place], [place] [id number] PCP - General Family Medicine 11/09/12 Technical Services Librarian Relationship Specialty Start Date End Date Alyson Arthur MD [address] [place], [place] [id number] PCP - General Family Medicine 11/09/12 Technical Services Librarian Relationship Specialty Start Date End Date Alyson Arthur MD [address] [place] [address] PCP - General Family Medicine 11/09/12 Technical Services Librarian Relationship Specialty Start Date End Date Alyson Arthur MD [address] [place] [address] PCP - General Family Medicine 11/09/12 Technical Services Librarian Relationship Specialty Start Date End Date Alyson Arthur MD [address] [place] [address] PCP - General Family Medicine 11/09/12 Technical Services Librarian Relationship Specialty Start Date End Date Alyson Arthur MD [address] [place] [address] PCP - General Family Medicine 11/09/12 Technical Services Librarian Relationship Specialty Start Date End Date Alyson Arthur MD [address] [place] [address] PCP - General Family Medicine 11/09/12 Technical Services Librarian Relationship Specialty Start Date End Date Alyson Arthur MD [address] [place] [address] PCP - General Family Medicine 11/09/12 Technical Services Librarian Relationship Specialty Start Date End Date Alyson Arthur MD [address] [place] [address] PCP - General Family Medicine 11/09/12 Technical Services Librarian Relationship Specialty Start Date End Date Alyson Arthur MD [address] [place] [address] PCP - General Family Medicine 11/09/12 Technical Services Librarian Relationship Specialty Start Date End Date Alyson Arthur MD [address] [place] [address] PCP - General Family Medicine 11/09/12 Technical Services Librarian Relationship Specialty Start Date End Date Alyson Arthur MD [address] [place], [place] [address] PCP - General Family Medicine 11/09/12 Technical Services Librarian Relationship Specialty Start Date End Date Alyson Arthur MD [address] [place] [address] PCP - General Family Medicine 11/09/12 Technical Services Librarian Relationship Specialty Start Date End Date Alyson Arthur MD [address] [place] [address] PCP - General Family Medicine 11/09/12 Technical Services Librarian Relationship Specialty Start Date End Date Alyson Arthur MD [address] [place] [address] PCP - General Family Medicine 11/09/12 Technical Services Librarian Relationship Specialty Start Date End Date Alyson Arthur MD [address] [place] [address] PCP - General Family Medicine 11/09/12 Shlomo Alcocer MD [address] [place] [address] Surgeon Cardiac Surg 02/20/23 Benjamin Pike MD [address] [place] [address] Referring Cardiovascular Surgery 02/20/23 Kiel Barnes MD [address] [place] [address] Primary Staff Physician Cardiology 03/15/23 Technical Services Librarian Relationship Specialty Start Date End Date Alyson Arthur MD [address] [place], [place] [address]59651 PCP - General Family Medicine 11/09/12 Shlomo Alcocer MD [address] [place] [address] Surgeon Cardiac Surg 02/20/23 Benjamin Pike MD 1 [place] [address] Referring Cardiovascular Surgery 02/20/23 Kiel Barnes MD [address] [place] [address] Primary Staff Physician Cardiology 03/15/23 Technical Services Librarian Relationship Specialty Start Date End Date Alyson Arthur MD [address] [place] [address] PCP - General Family Medicine 11/09/12 Shlomo Alcocer MD [address] [place] [address] Surgeon Cardiac Surg 02/20/23 Benjamin Pike MD 1 [place], [place] [phone] Referring Cardiovascular Surgery 02/20/23 Kiel Barnes MD [address] [place], [place] [address] Primary Staff Physician Cardiology 03/15/23 Technical Services Librarian Relationship Specialty Start Date End Date Alyson Arthur MD [address] [place], [place] 749031 PCP - General Family Medicine 11/09/12 Shlomo Alcocer MD [address] [place] [address] Surgeon Cardiac Surg 02/20/23 Benjamin Pike MD [address] [place], [place] [phone] Referring Cardiovascular Surgery 02/20/23 Kiel Barnes MD [address] [place] [address] Primary Staff Physician Cardiology 03/15/23 Technical Services Librarian Relationship Specialty Start Date End Date Alyson Arthur MD [address] [place] [address] PCP - General Family Medicine 11/09/12 Shlomo Alcocer MD [address] [place] [address] Surgeon Cardiac Surg 02/20/23 Benjamin Pike MD [address] [place], [place] [phone] Referring Cardiovascular Surgery 02/20/23 Kiel Barnes MD [address] [place] [address] Primary Staff Physician Cardiology 03/15/23 Technical Services Librarian Relationship Specialty Start Date End Date Alyson Arthur MD [address] [place], [place] 0[address]181 PCP - General Family Medicine 11/09/12 Shlomo Alcocer MD [address] [place] [address] Surgeon Cardiac Surg 02/20/23 Benjamin Pike MD [address] [place], [place] [address] Referring Cardiovascular Surgery 02/20/23 Kiel Barnes MD [address] [place] [address]958[address] Primary Staff Physician Cardiology 03/15/23 Technical Services Librarian Relationship Specialty Start Date End Date Alyson Arthur MD [address] [place] [address] PCP - General Family Medicine 11/09/12 Shlomo Alcocer MD [address] [place] [address] Surgeon Cardiac Surg 02/20/23 Benjamin Pike MD [address] [place] [address] Referring Cardiovascular Surgery 02/20/23 Kiel Barnes MD [address] [place] [address] Primary Staff Physician Cardiology 03/15/23 Technical Services Librarian Relationship Specialty Start Date End Date Alyson Arthur MD [address] [place] [address] PCP - General Family Medicine 11/09/12 Shlomo Alcocer MD [address] [facility] [place] [address] Surgeon Cardiac Surg 02/20/23 Benjamin Pike MD 1 [place] [address] Referring Cardiovascular Surgery 02/20/23 Kiel Barnes MD [address] [place], [place] [phone] Primary Staff Physician Cardiology 03/15/23 Technical Services Librarian Relationship Specialty Start Date End Date Alyson Arthur MD [address] [place] [address] PCP - General Family Medicine 11/09/12 Shlomo Alcocer MD [address] [place] [address] Surgeon Cardiac Surg 02/20/23 Benjamin Pike MD 1 [place] [address] Referring Cardiovascular Surgery 02/20/23 Kiel Barnes MD [address] [place], [place] 0070395 Primary Staff Physician Cardiology 03/15/23 Technical Services Librarian Relationship Specialty Start Date End Date Alyson Arthur MD [address] [place], [place] 258461 PCP - General Family Medicine 11/09/12 Shlomo Alcocer MD [address] [place], [place] 5014195 Surgeon Cardiac Surg 02/20/23 Benjamin Pike MD [address] [facility] [place], [place] [phone] Referring Cardiovascular Surgery 02/20/23 Kiel Barnes MD [address] [place] [address] Primary Staff Physician Cardiology 03/15/23 Technical Services Librarian Relationship Specialty Start Date End Date Alyson Arthur MD [address] [place] [id number] PCP - General Family Medicine 11/09/12 Shlomo Alcocer MD [address] [place] [address] Surgeon Cardiac Surg 02/20/23 Benjamin Pike MD [address] [place] [address] Referring Cardiovascular Surgery 02/20/23 Kiel Branes MD [address] [place] [address] Primary Staff Physician Cardiology 03/15/23 Technical Services Librarian Relationship Specialty Start Date End Date Alyson Arthur MD [facility] [place] [address] PCP - General Family Medicine 11/09/12 Shlomo Alcocer MD [address] [facility] [place] [place] 065[address]95 Surgeon Cardiac Surg 02/20/23 Benjamin Pike MD [address] [facility] [address] [place], [place] [phone] Referring Cardiovascular Surgery 02/20/23 Kiel Barnes MD [address] [place], [place] 604[address] Primary Staff Physician Cardiology 03/15/23 Technical Services Librarian Relationship Specialty Start Date End Date Alyson Arthur MD [address] [place], [place] 774191 PCP - General Family Medicine 11/09/12 Shlomo Alcocer MD [address] [place], [place] [address] Surgeon Cardiac Surg 02/20/23 Benjamin Pike MD [address] [place] [address] Referring Cardiovascular Surgery 02/20/23 Kiel Barnes MD [address] [place], [place] 4115195 Primary Staff Physician Cardiology 03/15/23 Technical Services Librarian Relationship Specialty Start Date End Date Alyson Arthur MD [address] [place] [address] PCP - General Family Medicine 11/09/12 Shlomo Alcocer MD [address] [place] [address] Surgeon Cardiac Surg 02/20/23 Benjamin Pike MD 1 [place] [address] Referring Cardiovascular Surgery 02/20/23 Kiel Barnes MD [address] [place] [address] Primary Staff Physician Cardiology 03/15/23 Technical Services Librarian Relationship Specialty Start Date End Date Alyson Arthur MD [address] [place] [address] PCP - General Family Medicine 11/09/12 Shlomo Alcocer MD [address] [place] [address] Surgeon Cardiac Surg 02/20/23 Benjamin Pike MD 1 [place] [address] Referring Cardiovascular Surgery 02/20/23 Kiel Barnes MD [address] [place] [address] Primary Staff Physician Cardiology 03/15/23 Technical Services Librarian Relationship Specialty Start Date End Date Alyson Arthur MD [address] [place] [address] PCP - General Family Medicine 11/09/12 Shlomo Alcocer MD [address] [place] [address] Surgeon Cardiac Surg 02/20/23 Benjamin Pike MD 1 [place], [place] [phone] Referring Cardiovascular Surgery 02/20/23 Kiel Barnes MD [address] [place], [place] 5922[address] Primary Staff Physician Cardiology 03/15/23 Technical Services Librarian Relationship Specialty Start Date End Date Alyson Arthur MD [address] [place], [place] 529221 PCP - General Family Medicine 11/09/12 Shlomo Alcocer MD [address] [place], [place] [address] Surgeon Cardiac Surg 02/20/23 Benjamin Pike MD [address] [place], [place] [address] Referring Cardiovascular Surgery 02/20/23 Kiel Barnes MD [address] [place] [address] Primary Staff Physician Cardiology 03/15/23 Technical Services Librarian Relationship Specialty Start Date End Date Alyson Arthur MD [address] [place] [address] PCP - General Family Medicine 11/09/12 Shlomo Alcocer MD [address] [place] [address] Surgeon Cardiac Surg 02/20/23 Benjamin Pike MD [address] [place], [place] [address] Referring Cardiovascular Surgery 02/20/23 Kiel Barnes MD [address] [place], [place] 10405[address] Primary Staff Physician Cardiology 03/15/23 Technical Services Librarian Relationship Specialty Start Date End Date Alyson Arthur MD [address] [place], [place] 325541 PCP - General Family Medicine 11/09/12 Shlomo Alcocer MD [address] [place] [address] Surgeon Cardiac Surg 02/20/23 Benjamin Pike MD [address] [place], [place] [address] Referring Cardiovascular Surgery 02/20/23 Kiel Barnes MD [address] [place] [place] 8446395 Primary Staff Physician Cardiology 03/15/23 Technical Services Librarian Relationship Specialty Start Date End Date Alyson Arthur MD [address] [place] [address] PCP - General Family Medicine 11/09/12 Shlomo Alcocer MD [address] [place] [address] Surgeon Cardiac Surg 02/20/23 Benjamin Pike MD [address] [facility] [place], [place] [address]307 Referring Cardiovascular Surgery 02/20/23 Kiel Barnes MD [address] [place] [place], [place] 6584695 Primary Staff Physician Cardiology 03/15/23 Technical Services Librarian Relationship Specialty Start Date End Date Alyson Arthur MD [address] [place] [address] PCP - General Family Medicine 11/09/12 Shlomo Alcocer MD [address] [place] [address] Surgeon Cardiac Surg 02/20/23 Benjamin Pike MD [address] [place] [address] Referring Cardiovascular Surgery 02/20/23 Kiel Barnes MD [address] [place] [address] Primary Staff Physician Cardiology 03/15/23 Team Status: Active Member Role Status Dates Dr. Aylson Arthur MD Primary Care Provider Active Dr. [...] Provi kaveh, Attending Provider, Referring Provider Active Technical Services Librarian Relationship Specialty Start Date End Date Alyson Arthur MD [address] [place] [address] PCP - General Family Medicine 11/09/12 Shlomo Alcocer MD [address] [place] [address] Surgeon Cardiac Surg 02/20/23 Benjamin Pike MD [address] [place] [address] Referring Cardiovascular Surgery 02/20/23 Kiel Branes MD [address] [place] [address] Primary Staff Physician Cardiology 03/15/23 Team Status: [...] Attending Provider, Other Provid er Active Dr. Rja Stevenson MD Other Provider Active Team Status: [...] Dr. Raj Stevenson MD Other Provider Active Technical Services Librarian Relationship Specialty Start Date End Date Alyson Arthur MD [address] [place] [address] PCP - General Family Medicine 11/09/12 Shlomo Alcocer MD [address] [facility] [place] [address] Surgeon Cardiac Surg 02/20/23 Benjamin Pike MD [address] [facility] [place], [place] [phone] Referring Cardiovascular Surgery 02/20/23 Kiel Barnes MD [address] [place], [place] 898[address] Primary Staff Physician Cardiology 03/15/23 Technical Services Librarian Relationship Specialty Start Date End Date Alyson Arthur MD [address] [place], [place] [phone] PCP - General Family Medicine 11/09/12 Shlomo Alcocer MD [address] [place], [place] 3227895 Surgeon Cardiac Surg 02/20/23 Benjamin Pike MD [address] [facility] [place], [place] 03079307 Referring Cardiovascular Surgery 02/20/23 Kiel Barnes MD [address] [place] [place], [place] [address] Primary Staff Physician Cardiology 03/15/23 Technical Services Librarian Relationship Specialty Start Date End Date Alyson Arthur MD [address] [place] [address] PCP - General Family Medicine 11/09/12 Shlomo Alcocer MD [address] [place] [address] Surgeon Cardiac Surg 02/20/23 Benjamin Pike MD [address] [place], [place] 55640[address] Referring Cardiovascular Surgery 02/20/23 Kiel Barnes MD [address] [place] [place], [place] 8836095 Primary Staff Physician Cardiology 03/15/23 Technical Services Librarian Relationship Specialty Start Date End Date Alyson Arthur MD [address] [place], [place] 492241 PCP - General Family Medicine 11/09/12 Shlomo Alcocer MD [address] [place], [place] 8084395 Surgeon Cardiac Surg 02/20/23 Benjamin Pike MD [address] [facility] [place], [place] 57603307 Referring Cardiovascular Surgery 02/20/23 Kiel Barnes MD [address] [place] [place] 665[address]5 Primary Staff Physician Cardiology 03/15/23 Technical Services Librarian Relationship Specialty Start Date End Date Alyson Arthur MD [address] [place] [address] PCP - General Family Medicine 11/09/12 Shlomo Alcocer MD [address] [place], [place] 826119[address] Surgeon Cardiac Surg 02/20/23 Benjamin Pike MD 1 [place], [place] [phone] Referring Cardiovascular Surgery 02/20/23 Kiel Barnes MD [address] [place] [address] Primary Staff Physician Cardiology 03/15/23 Technical Services Librarian Relationship Specialty Start Date End Date Alyson Arthur MD [address] [place] [address] PCP - General Family Medicine 11/09/12 Shlomo Alcocer MD [address] [place] [address] Surgeon Cardiac Surg 02/20/23 Benjamin Pike MD [address] [facility] [place], [place] [phone] Referring Cardiovascular Surgery 02/20/23 Kiel Barnes MD [address] [place] [address] Primary Staff Physician Cardiology 03/15/23 Technical Services Librarian Relationship Specialty Start Date End Date Alyson Arthur MD [address] [place] [address] PCP - General Family Medicine 11/09/12 Shlomo Alcocer MD [address] [place] [address] Surgeon Cardiac Surg 02/20/23 Benjamin Pike MD [address] [facility] [place], [place] [phone] Referring Cardiovascular Surgery 02/20/23 Kiel Barnes MD [address] [place], [place] 3532395 Primary Staff Physician Cardiology 03/15/23 Technical Services Librarian Relationship Specialty Start Date End Date Alyson Arthur MD [address] [place], [place] 048361 PCP - General Family Medicine 11/09/12 Shlomo Alcocer MD [address] [place], [place] 5617[address] Surgeon Cardiac Surg 02/20/23 Benjamin Pike MD [address] [place], [place] [address] Referring Cardiovascular Surgery 02/20/23 Kiel Barnes MD [address] [place], [place] 3938695 Primary Staff Physician Cardiology 03/15/23 Technical Services Librarian Relationship Specialty Start Date End Date Alyson Arthur MD [address] [place], [place] 279381 PCP - General Family Medicine 11/09/12 Shlomo Alcocer MD [address] [place], [place] 1894395 Surgeon Cardiac Surg 02/20/23 Benjamin Pike MD [address] [place], [place] [phone] Referring Cardiovascular Surgery 02/20/23 Kiel Barnes MD [address] [place], [place] 016[address] Primary Staff Physician Cardiology 03/15/23 Technical Services Librarian Relationship Specialty Start Date End Date Alyson Arthur MD [address] [place] [address] PCP - General Family Medicine 11/09/12 Shlomo Alcocer MD [address] [place] [address] Surgeon Cardiac Surg 02/20/23 Benjamin Pike MD 1 [place], [place] [phone] Referring Cardiovascular Surgery 02/20/23 Kiel Barnes MD [address] [place], [place] 7743495 Primary Staff Physician Cardiology 03/15/23 Technical Services Librarian Relationship Specialty Start Date End Date Alyson Arthur MD [address] [place] [address] PCP - General Family Medicine 11/09/12 Shlomo Alcocer MD [address] [place] [address] Surgeon Cardiac Surg 02/20/23 Benjamin Pike MD 1 [place] [address] Referring Cardiovascular Surgery 02/20/23 Kiel Barnes MD [address] [place], [place] 8501095 Primary Staff Physician Cardiology 03/15/23 Technical Services Librarian Relationship Specialty Start Date End Date Alyson Arthur MD [address] [place], [place] 582601 PCP - General Family Medicine 11/09/12 Shlomo Alcocer MD [address] [place] [address] Surgeon Cardiac Surg 02/20/23 Benjamin Pike MD [address] [place] [address] Referring Cardiovascular Surgery 02/20/23 Kiel Barnes MD [address] [place] [address] Primary Staff Physician Cardiology 03/15/23 Technical Services Librarian Relationship Specialty Start Date End Date Alyson Arthur MD 0 [place] [address] PCP - General Family Medicine 11/09/12 Shlomo Alcocer MD [address] [place] [address] Surgeon Cardiac Surg 02/20/23 Benjamin Pike MD [address] [place] [address] Referring Cardiovascular Surgery 02/20/23 Kiel Barnes MD [address] [place] [address] Primary Staff Physician Cardiology 03/15/23 Technical Services Librarian Relationship Specialty Start Date End Date Alyson Arthur MD [address] [place], [place] 741701 PCP - General Family Medicine 11/09/12 Technical Services Librarian Relationship Specialty Start Date End Date Alyson Arthur MD [address] [place] [address] PCP - General Family Medicine 11/09/12 Shlomo Alcocer MD [address] [place], [place] 1420095 Surgeon Cardiac Surg 02/20/23 Benjamin Pike MD [address] [facility] [place], [place] [phone] Referring Cardiovascular Surgery 02/20/23 Kiel Barnes MD [address] [place], [place] 3002895 Primary Staff Physician Cardiology 03/15/23 Technical Services Librarian Relationship Specialty Start Date End Date Alyson Arthur MD [address] [place] [address] PCP - General Family Medicine 11/09/12 Technical Services Librarian Relationship Specialty Start Date End Date Alyson Arthur MD [address] [place] [address] PCP - General Family Medicine 11/09/12 Technical Services Librarian Relationship Specialty Start Date End Date Alyson Arthur MD [address] [place] [address] PCP - General Family Medicine 11/09/12 Technical Services Librarian Relationship Specialty Start Date End Date Alyson Arthur MD [address] [place] [address] PCP - General Family Medicine 11/09/12 Shlomo Alcocer MD [address] [place] [address] Surgeon Cardiac Surg 02/20/23 Benjamin Pike MD [address] [place] [address] Referring Cardiovascular Surgery 02/20/23 Kiel Barnes MD [address] [place] [address] Primary Staff Physician Cardiology 03/15/23 Technical Services Librarian Relationship Specialty Start Date End Date Alyson Arthur MD [address] [place], [place] 702011 PCP - General Family Medicine 11/09/12 Shlomo Alcocer MD [address] [place], [place] 2742595 Surgeon Cardiac Surg 02/20/23 Benjamin Pike MD [address] [place] [address] Referring Cardiovascular Surgery 02/20/23 Kiel Barnes MD [address] [place] [address] Primary Staff Physician Cardiology 03/15/23 Technical Services Librarian Relationship Specialty Start Date End Date Alyson Arthur MD [address] [place] [address] PCP - General Family Medicine 11/09/12 Shlomo Alcocer MD [address] [place] [address] Surgeon Cardiac Surg 02/20/23 Benjamin Pike MD [address] [facility] [place], [place] [phone] Referring Cardiovascular Surgery 02/20/23 Kiel Barnes MD [address] [place], [place] 5392095 Primary Staff Physician Cardiology 03/15/23 Angela Schmid APRN.NOODLE PRESS OPERATOR [address] [place] [address] [facility] 01/22/24 Margi Riddle APRN.NOODLE PRESS OPERATOR [address] [place] [address] [facility] 01/22/24 Technical Services Librarian Relationship Specialty Start Date End Date Alyson Arthur MD [address] [place], [place] 820631 PCP - General Family Medicine 11/09/12 Shlomo Alcocer MD [address] [place] [address] Surgeon Cardiac Surg 02/20/23 Benjamin Pike MD [address] [place] [address] Referring Cardiovascular Surgery 02/20/23 Kiel Barnes MD [address] [place] [address] Primary Staff Physician Cardiology 03/15/23 Angela Schmid APRN.NOODLE PRESS OPERATOR [address] [place] [address] [facility] 01/22/24 Margi Riddle APRN.NOODLE PRESS OPERATOR [address] [place] [address] [employer] [facility] 01/22/24 Technical Services Librarian Relationship Specialty Start Date End Date Alyson Arthur MD [address] [place] [address] PCP - General Family Medicine 11/09/12 Shlomo Alcocer MD [address] [place] [address] Surgeon Cardiac Surg 02/20/23 Benjamin Pike MD [address] [place], [place] [phone] Referring Cardiovascular Surgery 02/20/23 Kiel Barnes MD [address] [place] [address] Primary Staff Physician Cardiology 03/15/23 Angela Schmid APRN.NOODLE PRESS OPERATOR [address] [place] [address] [facility] 01/[facility]/24 Margi Riddle FRAMEMAN.NOODLE PRESS OPERATOR [address] [place] [address] [employer] [facility] 01/22/24 Technical Services Librarian Relationship Specialty Start Date End Date Alyson Arthur MD [address] [place] [address] PCP - General Family Medicine 11/09/12 Shlomo Alcocer MD [address] [place], [place] 5434795 Surgeon Cardiac Surg 02/20/23 Benjamin Pike MD [address] [place] [address] Referring Cardiovascular Surgery 02/20/23 Kiel Barnes MD [address] [place], [place] 8030895 Primary Staff Physician Cardiology 03/15/23 Angela Schmid APRN.NOODLE PRESS OPERATOR [address] [place] [address] [facility] 01/22/24 Margi Riddle APRN.NOODLE PRESS OPERATOR [address] [place] [address] [facility] 01/22/24 Technical Services Librarian Relationship Specialty Start Date End Date Alyson Arthur MD [address] [place], [place] 882751 PCP - General Family Medicine 11/09/12 Shlomo Alcocer MD [address] [place] [address] Surgeon Cardiac Surg 02/20/23 Benjamin Pike MD [address] [place] [address] Referring Cardiovascular Surgery 02/20/23 Kiel Barnes MD [address] [place], [place] 8865995 Primary Staff Physician Cardiology 03/15/23 Angela Schmid, FRAMEMAN.NOODLE PRESS OPERATOR [address] [place] [address] [employer] Family [facility] 01/22/24 Margi Riddle FRAMEMAN.NOODLE PRESS OPERATOR [address] [place] [address] [employer] [facility] 01/22/24 Technical Services Librarian Relationship Specialty Start Date End Date Alyson Arthur MD [address] [place], [place] 814731 PCP - General Family Medicine 11/09/12 Shlomo Alcocer MD [address] [place], [place] 1381395 Surgeon Cardiac Surg 02/20/23 Benjamin Pike MD [address] [place] [address] Referring Cardiovascular Surgery 02/20/23 Kiel Barnes MD [address] [place] [address] Primary Staff Physician Cardiology 03/15/23 Angela Schmid, FRAMEMAN.NOODLE PRESS OPERATOR [address] [place] [address] [facility] 01/22/24 Margi Riddle, FRAMEMAN.NOODLE PRESS OPERATOR [address] [place] [address] [facility] 01/22/24 Technical Services Librarian Relationship Specialty Start Date End Date Alyson Arthur MD [address] [place] [address] PCP - General Family Medicine 11/09/12 Shlomo Alcocer MD [address] [place] [address] Surgeon Cardiac Surg 02/20/23 Benjamin Pike MD [address] [place] [address] Referring Cardiovascular Surgery 02/20/23 Kiel Barnes MD [address] [place], [place] 0276295 Primary Staff Physician Cardiology 03/15/23 Angela Schmid, PRICILA.NOODLE PRESS OPERATOR [address] [place] [address] [employer] [facility] 01/22/24 Margi Riddle, FRAMEMAN.NOODLE PRESS OPERATOR [address] [place] [address] [employer] [facility] 01/22/24 Technical Services Librarian Relationship Specialty Start Date End Date Alyson Arthur MD [address] [place], [place] 451091 PCP - General Family Medicine 11/09/12 Shlomo Alcocer MD [address] [place] [address] Surgeon Cardiac Surg 02/20/23 Benjamin Pike MD [address] [place], [place] [phone] Referring Cardiovascular Surgery 02/20/23 Kiel Barnes MD [address] [place], [place] [phone] Primary Staff Physician Cardiology 03/15/23 nAgela Schmid APRN.NOODLE PRESS OPERATOR [address] [place] [address] [employer] [facility] 01/22/24 Margi Riddle APRN.NOODLE PRESS OPERATOR [address] [place] [address] [employer] [facility] 01/22/24 Technical Services Librarian Relationship Specialty Start Date End Date Alyson Arthur MD [address] [place], [place] 763981 PCP - General Family Medicine 11/09/12 Shlomo Alcocer MD [address] [place] [address] Surgeon Cardiac Surg 02/20/23 Benjamin Pike MD [address] [place] [address] Referring Cardiovascular Surgery 02/20/23 Kiel Barnes MD [address] [place] [address] Primary Staff Physician Cardiology 03/15/23 Angela Schmid APRN.NOODLE PRESS OPERATOR [address] [place] [address] [facility] 01/22/24 Margi Riddle APRN.NOODLE PRESS OPERATOR [address] [place] [address] [facility] 01/22/24 Technical Services Librarian Relationship Specialty Start Date End Date Alyson Arthur MD [address] [place], [place] 338021 PCP - General Family Medicine 11/09/12 Shlomo Alcocer MD [address] [place] [address] Surgeon Cardiac Surg 02/20/23 Benjamin Pike MD [address] [place] [address] Referring Cardiovascular Surgery 02/20/23 Angela Schmid APRN.NOODLE PRESS OPERATOR [address] [place], [place] [address]20501 [employer] [facility] 01/22/24 Margi Riddle APRN.NOODLE PRESS OPERATOR [address] [place], [place] 604[address] [facility] 01/22/24 Team Status: Inactive Member Role Status [...] July 24, 2024 End: July 24, 2024 Technical Services Librarian Relationship Specialty Start Date End Date Alyson Arthur MD [address] [place], [place] [address] PCP - General Family Medicine 11/09/12 Shlomo Alcocer MD [address] [place] [address] Surgeon Cardiac Surg 02/20/23 Angela Schmid, FRAMEMAN.NOODLE PRESS OPERATOR [address] [place] [address] [employer] Cook Family Medicine 01/22/24 Margi Riddle, FRAMEMAN.NOODLE PRESS OPERATOR [address] [place] [address] [employer] Cook Family Medicine 01/22/24 Technical Services Librarian Relationship Specialty Start Date End Date Alyson Arthur MD [address] [place] [address] PCP - General Family Medicine 11/09/12 Shlomo Alcocer MD [address] [place] [address] Surgeon Cardiac Surg 02/20/23 Angela Schmid, FRAMEMAN.NOODLE PRESS OPERATOR [address] [facility] [place] [address] [employer] Cook Family Medicine 01/22/24 Margi Riddle FRAMEMAN.NOODLE PRESS OPERATOR [address] [place] [address] [employer] Cook Family Medicine 01/22/24 Technical Services Librarian Relationship Specialty Start Date End Date Alyson Arthur MD [address] [place] [address] PCP - General Family Medicine 11/09/12 Shlomo Alcocer MD [address] [facility] [address] Surgeon Cardiac Surg 02/20/23 Angela Schmid APRN.NOODLE PRESS OPERATOR [address] [place] [address] [employer] Cook Family [facility] 01/22/24 Margi Riddle FRAMEMAN.NOODLE PRESS OPERATOR [address] [place] [address] [employer] Family [facility] 01/22/24 Technical Services Librarian Relationship Specialty Start Date End Date Alyson Arthur MD [address] [place] [address] PCP - General Family Medicine 11/09/12 Shlomo Alcocer MD [address] [facility] [address] Surgeon Cardiac Surg 02/20/23 Angela Schmid, FRAMEMAN.NOODLE PRESS OPERATOR [address] [place] [address] [facility] 01/22/24 Margi Riddle FRAMEMAN.NOODLE PRESS OPERATOR [address] [place] [address] [facility] 01/22/24 Technical Services Librarian Relationship Specialty Start Date End Date Alyson Arthur MD [address] [place], [place] [address] PCP - General Family Medicine 11/09/12 Shlomo Alcocer MD [address] [place], [place] [id number] Surgeon Cardiac Surg 02/20/23 Angela Schmid, FRAMEMAN.NOODLE PRESS OPERATOR [address] [place], [place] [id number] [facility] 01/22/24 Margi Riddle FRAMEMAN.NOODLE PRESS OPERATOR [address] [place], [place] [address] [facility] 01/22/24 Team Status: Active Member Role/Relationship Status [...] August 21, 2024 End: August 21, 2024 Technical Services Librarian Relationship Specialty Start Date End Date Alyson Arthur MD [address] [place], [place] [address] PCP - General Family Medicine 11/09/12 Shlomo Alcocer MD [address] [place] [address] Surgeon Cardiac Surg 02/20/23 Angela Schmid APRN.NOODLE PRESS OPERATOR [address] [place] [address] [employer] Cook Family [facility] 01/22/24 Margi Riddle FRAMEMAN.NOODLE PRESS OPERATOR [address] [place] [address] School Cafeteria Cook [facility] 01/22/24 Technical Services Librarian Relationship Specialty Start Date End Date Alyson Arthur MD [address] [place] [address] PCP - General Family Medicine 11/09/12 Shlomo Alcocer MD [address] [place] [address] Surgeon Cardiac Surg 02/20/23 Angela Schmid APRN.NOODLE PRESS OPERATOR [address] [place] [address] [employer] Family [facility] 01/22/24 Margi Riddle FRAMEMAN.NOODLE PRESS OPERATOR [address] [place] [address] [facility] 01/22[facility] Technical Services Librarian Relationship Specialty Start Date End Date Alyson Arthur MD [address] [place] [address] PCP - General Family Medicine 11/09/12 Shlomo Alcocer MD [address] [place] [address] Surgeon Cardiac Surg 02/20/23 Angela Schmid APRN.NOODLE PRESS OPERATOR [address] [place] [address] [facility] 01/22/24 Margi Riddle FRAMEMAN.NOODLE PRESS OPERATOR [address] [place] [address] [facility] 01/22/24 Technical Services Librarian Relationship Specialty Start Date End Date Alyson Arthur MD [address] [place], [place] [address] PCP - General Family Medicine 11/09/12 Shlomo Alcocer MD [address] [place] [address] Surgeon Cardiac Surg 02/20/23 Angela Schmid, FRAMEMAN.NOODLE PRESS OPERATOR [address] [place] [address] [facility] 01/22/24 Margi Riddle FRAMEMAN.NOODLE PRESS OPERATOR [address] [place] [address] [facility] 01/22/24 Technical Services Librarian Relationship Specialty Start Date End Date Alyson Arthur MD [address] [place], [place] [address] PCP - General Family Medicine 11/09/12 Shlomo Alcocer MD [address] [place], [place] [id number] Surgeon Cardiac Surg 02/20/23 Angela Schmid APRN.NOODLE PRESS OPERATOR [address] [place], [place] [address] [facility] 01/22/24 Margi Riddle APRN.NOODLE PRESS OPERATOR [address] [place], [place] [address] [facility] 01/22/24 Technical Services Librarian Relationship Specialty Start Date End Date Alyson Arthur MD [address] [place], [place] [address] PCP - General Family Medicine 11/09/12 Shlomo Alcocer MD [address] [place] [address] Surgeon Cardiac Surg 02/20/23 Angela Schmid APRN.NOODLE PRESS OPERATOR [address] [place], [place] [address] [facility] 01/22/24 Margi Riddle APRN.NOODLE PRESS OPERATOR [address] [place], [place] [id number] [facility] 01/22/24 Goals (unrecognized section and content) Goals [...] section and content) DATE CREATED AUTHOR 08/13/2023 [facility] ([place]) DATE CREATED AUTHOR AUTHOR'S ORGANIZ ATION 03/04/2024 [facility] DATE CREATED AUTHOR AUTHOR'S ORGANIZ ATION 08/29/2024 [facility] DATE CREATED AUTHOR AUTHOR'S ORGANIZ ATION 09/13/2024 [facility] DATE CREATED AUTHOR AUTHOR'S ORGANIZ ATION 12/05/2024 [facility] FOR RECORDS PERTAINING TO PATIENTS WHO ARE [...] BE BASED ON THE PRIMARY CLINICAL RECORDS. [employer] provides no warranty or guarantee of the accuracy or completeness of information in this document.
--- NOTE | 2024-12-15 21:27 | PCM.PRE.AN2 ---
ASA Classification* ASA Classification ASA Classification: 3 and E Assessment & Plan Anesthesia* Anesthesia Assessment Anesthesia Assessment: Discussed sedation and/or anesthesia options, risks, benefits, and alternatives with patient/parents/legal guardian/POA. Questions invited. The patient/parents/legal guardian/POA seems to understand and agrees to proceed with anesthesia plan. Reviewed the physical assessment, medical history, allergy history and patient home medications list prior to surgery/procedure/anesthetic and documented any changes. Performed airway and anesthesia risk assessments. Anesthesia Type Anesthesia Type: General (Patient aware may require post op ventilation) Anesthesia Focused Assessment* Temperature: 99 F Pulse Rate: 79 Blood Pressure: 113/56 Respiratory Rate: 23 Pulse Ox: 95 Oxygen Flow Rate (L/min): 2 Airway Assessment Mouth opens: >3 cm Mallampati Score: II Labs Anesthesia Preop lab: CBC WBC, (4.4-11.0) 14.0 K/mm3 H Today, 17:53 RBC, (4.6-6.2) 6.06 M/mm3 Today, 17:53 Hgb, (13.0-16.5) 18.3 g/dL H* Today, 17:53 Hct, (40-54) 53.1 % Today, 17:53 Plt Count, (150-450) 234 K/mm3 Today, 17:53 CHEMISTRY Potassium, (3.3-5.1) 3.9 mmol/L Today, 17:53 Sodium, (133-145) 136 mmol/L Today, 17:53 BUN, (4-19) 20 mg/dL H Today, 17:53 Creatinine, (0.70-1.20) 0.93 mg/dL Today, 17:53 Glucose, (70-99) 259 mg/dL H Today, 17:53 POC Glucose, (74-106) 289 mg/dL H 10/18/23, 22:21 COAG Pre-Assessment Diagnosis/Proposed Procedure Planned Operative Procedure(s): Exploratory laparoscopy Anesthesia History 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 When Was Last Pacemaker Check QUESTION #4 FULL TEXT: You/Your Family Experience fever (hyperthermia) with Anesthesia Last Oral Intake Last Oral intake: Last Oral Intake NPO since Meds taken in AM with sips of water? Meds patient instructed to take am of surgery PONV PONV - auto painter helper: PONV - auto painter helper Female HX of Motion Sickness HX of N/V After Surgery Non-Smoker Duration of Surgery greater than 60 minutes Number of Risk Factors PONV Score Height & Weight Height & Weight: Anesthesia: Height & Weight Height 5 ft 4 in 12/15/24 21:05 Weight: 115.802 kg 12/15/24 21:05 Body Mass Index (BMI) 43.8 12/15/24 21:05 Respiratory Assessment Respiratory Assessment - auto painter helper: Respiratory Tract Infection Hx - auto painter helper Hx Respiratory Tract Infection No 12/15/24 21:05 STOP Sleep Apnea STOP Sleep Apnea - auto painter helper: STOP Sleep Apnea - auto painter helper Hx Hypertension Yes: medication 06/23/23 15:27 Hx Sleep Apnea Yes 12/15/24 21:05 CPAP Yes 12/15/24 21:05 BIPAP No 12/15/24 21:05 Do you snore loudly (louder than talking or can be heard Do you often feel tired/ fatigued/ sleepy during daytime? Has anyone observed you stop breathing during sleep? STOP Results Positive 12/15/24 21:05 QUESTION #5 FULL TEXT : Do you snore loudly (louder than talking or can be heard through closed doors)? Tobacco Use History Tobacco Use History - auto painter helper: Tobacco Use History - auto painter helper Tobacco Use Cigarettes 10/30/20 20:38 Smoking Status Current every day smoker 12/15/24 18:00 Hx Tobacco Use Yes 06/22/23 20:26 Years Smoking Packs Smoked per Day Smoking Cessation Date was within the last 15 years Hx Smoking Cessation Date Hx Smoking Cessation No 12/15/24 18:00 Counseling Hematologic Medial History Hematologic Hx - auto painter helper: Hematologic Medical Hx - documentation manager Hx of Blood Transfusion Hx of Transfusion in last 3 Months Date of Last Transfusion (if within last 3 months) Ever experience any problems with transfusion(s)? Specify any problems Hx of Preganancy in last 3 Months Nurse Filling Out Transfusion & Questions: Date: Time: Patient unable to answer at this time (ie. confused, unrespo /Reproduction History /Reproductive History - auto painter helper: /Reproductive Hx- auto painter helper Hx Now No 12/15/24 21:05 Gestational Age (in weeks): EDC: Hx Hx Para Hx Section SAB No 12/15/24 21:05 [facility] Medical History Stroke Carpal tunnel syndrome, bilateral LVH (left ventricular hypertrophy) Essential (primary) hypertension Diabetic neuropathy Degenerative disc disease Atherosclerotic heart disease of [place] coronary artery without angina pectoris Bipolar 1 disorder Bicuspid aortic valve Atrial septal defect and mitral stenosis Anxiety Hearing loss, left Chronic pain Pancreatitis GERD (gastroesophageal reflux disease) Smoker CPAP (continuous positive airway pressure) dependence Asthma Leaky heart valve MANISH (obstructive sleep apnea) Morbid obesity HLD (hyperlipidemia) Type II diabetes mellitus History of carpal tunnel syndrome COPD (chronic obstructive pulmonary disease) Home Medications ?Medication ?Instructions ?Recorded ?Last Taken ?Type atorvastatin 10 mg tablet 10 mg PO QHS cholesterol 11/03/16 06/21/23 History budesonide-formoterol HFA 80 2 puff inhalation BID lung disease 10/30/20 06/22/23 History mcg-4.5 mcg/actuation aerosol inhaler pantoprazole 40 mg tablet,delayed 40 mg PO DAILY reflux 10/30/20 06/22/23 History release acetaminophen 500 mg tablet 1,000 mg PO TID PRN Pain 10/18/21 Unknown History albuterol sulfate 90 mcg/actuation 1 - 2 puff inhalation Q4H PRN PRN 10/18/21 Unknown Rx aerosol inhaler (Ventolin HFA) Wheezing #8.5 grams insulin aspart U-100 100 unit/mL 2 unit subcut TID diabetes 10/14/22 06/22/23 History (3 mL) subcutaneous pen (Novolog FlexPen U-100 Insulin aspart) insulin glargine 100 unit/mL (3 20 unit subcut .QAM diabetes 10/14/22 06/22/23 History mL) subcutaneous pen pregabalin 100 mg capsule (Lyrica) 100 mg PO DAILY NEUROPATHY 10/14/22 06/22/23 History amlodipine 5 mg tablet 5 mg PO DAILY blood pressure 06/22/23 06/22/23 History apixaban 5 mg tablet (Eliquis) 5 mg PO BID blood thinner 06/22/23 06/22/23 History aspirin 81 mg tablet,delayed 81 mg PO DAILY heart health 06/22/23 06/22/23 History release (Adult Aspirin Regimen) bumetanide 1 mg tablet 2 mg PO BID edema 06/22/23 06/22/23 History docusate sodium 100 mg capsule 100 mg PO DAILY PRN constipation 06/22/23 Unknown History (Col-Rite) metoprolol tartrate 25 mg tablet 37.5 mg PO Q12H blood pressure / 06/22/23 06/22/23 History heart gfhvbfid-oo-abigk 300 mcg-K 60 1 tab PO DAILY supplement 06/22/23 06/22/23 History mcg-lycop 600 mcg-lutein 300 mcg tablet (Centrum Silver Men) ondansetron HCl 4 mg tablet 4 mg PO Q8H PRN PRN nausea and 06/22/23 06/22/23 History vomiting pregabalin 200 mg capsule 200 mg PO DAILY nerve pain 06/22/23 06/22/23 History tramadol 50 mg tablet 50 mg PO Q6H PRN pain 06/22/23 06/22/23 History trazodone 50 mg tablet 50 mg PO QHS sleep 06/22/23 06/21/23 History calcium carbonate 500 mg (2.5 x 200 mg calcium (500 06/24/23 Unknown Rx mg)) PO Q6H PRN PRN HEARTBURN #0 tabs azithromycin 500 mg tablet 500 mg PO DAILY 5 days #5 tabs 10/18/23 Unknown Rx hydrocodone-acetaminophen 5-325mg 1 tab PO TID PRN PRN pain 12/15/24 Unknown History 5mg-325mg Allergy/AdvReac Type Severity Reaction Status Date / Time Penicillins Allergy Hives Verified 12/15/24 17:40 fluticasone (From Flonase) AdvReac Severe Nose Bleeds Verified 12/15/24 17:40 lisinopril AdvReac Intermediate Upset Verified 12/15/24 17:40 Stomach NASAL SPRAY AdvReac Intermediate Chest Uncoded 10/09/22 14:22 tightness Family History Father Diabetes Dementia Mother CAD (coronary artery disease) CABG X4 Sister Diabetes Brother Ischemic heart disease Brother Myocardial infarction Surgical History History of back surgery Social History household members: spouse housing: house Smoking Status: Current every day smoker tobacco type: cigarettes Tobacco: How many years used: 45 alcohol intake: current alcohol intake frequency: holidays/special occasions only substance use type: does not use Review of Systems (Anesthesia) ROS Narrative System reviewed and no additional complaints, except as documented.
[2024-12-15] MEDS: Albuterol IH (6.7 GM) 1 PUFF INHALER 2 PUFF INHALATION (21:34)
[2024-12-15] MEDS: Lidocaine 1% (5 ml sdv) 5 ML Vial 3 ML IV (21:46)
[2024-12-15] MEDS: fentaNYL 100 MCG/2 ML Ampul IV (21:47)
[2024-12-15] MEDS: Midazolam 2 MG/2 ML Syringe 4 MG IV (23:05)
--- NOTE | 2024-12-15 23:17 | PCM.OPRPT ---
Operative Report (Standard) Operative Information Date of Procedure: 12/15/24 Pre-Operative Diagnosis: Perforated viscus Post-Operative Diagnosis: Perforated small bowel segment Surgery/Procedure Performed: Exploratory laparoscopy converted to open with resection of small bowel and anastomosis program coordinator: Yes Center Manager: Jeanette Salas Tasks completed by airplane first officer: Opening & closing and Retracting Type of Anesthesia: General/Regional RN Documented Start/Stop Times: Operation Date: 12/15/24 21:15 Case Time Anesthesia Start 12/15/24 21:28 Into Room 12/15/24 21:28 Procedure Start 12/15/24 22:03 Procedure Start Time: 22: Procedure Stop Time: : Select all DRAINS/GRAFTS/IMPLANTS that apply: None Estimated Blood Loss: 50 Fluids Replaced: 800 Specimen collected: Yes Description of specimen(s) removed: Small bowel segment Description of surgery: Patient was brought to surgery and general anesthesia was induced. Zazueta catheter was placed into the bladder. Next the abdomen was prepped and draped in usual sterile fashion. A midline incision was made superior to the umbilicus and using Visiport technique the abdomen was entered. The abdomen is insufflated 15 mmHg and the camera was placed into the abdomen and there were no injuries from entry. There was copious purulence throughout the abdomen as well as peritonitis. The purulence was suctioned. It appeared to be originating from the upper abdomen. Under direct visualization a 5 mm port was placed in the left upper quadrant and right lower quadrants. Using atraumatic graspers the adhesions were broken down and the bowel was run. It appeared that there were several adhesions in the small bowel. The laparoscopic approach localized the area of the purpose I did not identify it laparoscopically so I decided to open. The midline incision was elongated superiorly and inferiorly and then electrocautery was used for hemostasis. The fascia was opened superiorly and inferiorly using electrocautery. Next the bowel was delivered through the incision and inspected. The perforation was identified and a piece of small bowel. It was clamped with a Albert and then the adhesions to the piece of bowel were taken down sharply. Once there was healthy bowel proximally and distally to the site of perforation resection was undertaken. Using JC stapler the proximal bowel was divided in the same faction the distal bowel was divided. Using LigaSure impact the mesentery was taken down and the specimen was sent for pathology with a suture marking the site of perforation. Next the small bowel segments were approximated and the corner of the staple lines were removed. JC stapler was used to make an anastomosis in a [id number] functional end-to-end manner. The staple line was inspected and there was good hemostasis. Using a TX 60 stapler the enterostomy was closed. The staple line was inspected and there was good seal with no bleeding. There were a few areas in the mesentery that were still bleeding and these were stopped with 3-0 silk sutures. Next the bowel was returned to the abdomen and it was copiously irrigated and suctioned dry. Next the fascia was closed with a #1 PDS suture starting at the top and bottom meeting in the middle. The small incisions were closed with 4-0 Monocryl sutures. The midline incision was irrigated and suctioned. There was good hemostasis. The skin was reapproximated with skin maite. Bandages were applied. Patient was taken to the ICU in guarded condition intubated. Surgical Findings: Perforated loop of small bowel Complications Complications: No Admit VTE Documentation VTE Mechan Device Prophylaxis: SCD's
--- NOTE | 2024-12-15 23:55 | RAD_ITS ---
PROCEDURE: CHEST 1 VIEW (PORTABLE) 12/15/2024 REASON FOR EXAM: INTUBATION, NG PLACEMENT TECHNIQUE: Frontal view of the chest. COMPARISON: Earlier on the same day. FINDINGS: Since the previous study, the pneumoperitoneum is no longer visualized and may be resolved. The lungs are grossly clear. The cardiac silhouette is stable in size and contour with evidence of a median sternotomy. The patient is intubated, with the tip of the ET tube approximately 4 cm above the fely. An enteric tube is in place with its tip within the body of the stomach and side hole near the gastroesophageal junction. No acute osseous abnormality. RAD/Chest 1 View (Portable) IMPRESSION: As above. Reading Location: [id number]
[2024-12-16] VITALS (60 sets, daily range): BP systolic 86–155; BP diastolic 38–99; PULSE 64–92; RESP 16–19; TEMP 37.4–38.1; O2SAT 94–100; BMI 42.8; BMI 42.6
[2024-12-16] MEDS: Propofol 10MG/Ml 1,000 MG/100 ML Bottle 6.9 MG CONT INF
[2024-12-16] MEDS: fentaNYL drip 100 ML 2.5 MCG CONT INF
[2024-12-16] MEDS: 0.9% Normal Saline (1000mL) 1,000 ML 100 ML IV ×3 (00:06→19:54)
[2024-12-16] MEDS: 0.9% Saline Lock 10 ML Syringe IV ×3 (00:06→03:27)
[2024-12-16] MEDS: Pantoprazole Sodium 40 MG in 0.9% Normal Saline (100mL MB+) 100 ML 330 MG IV ×3 (00:13→21:08)
[2024-12-16 00:25] LABS: Magnesium 1.5 mg/dL (1.5-2.2)
[2024-12-16 01:32] LABS: CPK Total, Creatine Kinase 36 U/L (24-195); Triglycerides 221 mg/dL
--- NOTE | 2024-12-16 01:39 | NURSING ---
Patient came up from OR sedated and paralyzed per anesthesia. Once patient started to move around, bilateral soft wrist restraints applied for line/tube safety.
--- OUTSIDE RECORDS SUMMARY | 2024-12-16 01:47 | XMS RPT_ITS | CCD ---
Author Organization [facility] ion Partnership [facility] Care Team Providers Care Appliance Technician Name Role Phone Alyson Arthur MD Primary Care Provider Dr. Alyson Arthur Primary Care Provider Dr. Bruce Mc Attending Provider Dr. Juaquin Spear Emergency Provider [phone] Shanna Govea Admit Provider Dr. Shanna Govea Attending Provider Dr. Shanna Govea Other Provider Alyson Arthur MD Primary Care Provider Leodan WEIR, Shlomo Lucero Unavailable Benjamin Pike MD Unavailable Kiel Barnes MD Unavailable ALYSON ARTHUR MD Primary Care Physician Alyson Arthur MD Primary Care Provider Dr. Alyson Arthur Primary Care Provider Dr. Carmen Matthews Emergency Provider [phone] Dr. Raj Stevenson Attending Provider [phone] Dr. Patrick Sharma Admit Provider Dr. Patrick Sharma Referring Provider Dr. Patrick Sharma Other Provider Dr. Trip Fraire Other Provider Luis, Dr. Woosung Other Provider Dr. Trip Fraire Attending Provider Dr. Raj Stevenson Other Provider Dr. Kiel Chacon Attending Provider JERSON WEIR, ALYSON Primary Care Unavailable BRAYAN AGUILERA, BENJAMIN Consulting Unavailable SCHEATZLE DO, MALIA Admitting Unavailable SCHEATZJENN DO, MALIA Attending Unavailable MARRY COMMERCIAL LINES ACCOUNT EXECUTIVE-SEASONER HAND, DERECK Chavez Consulting Unavaila blanco SINGH DPM, DR ALLISON Bliss Consulting Elio SARAH MD, DR STOUT Consulting Unavailab jenn ARTHUR MD, ALYSON Primary Care Unavailable BRAYAN DO, BENJAMIN Consulting Unavailable SCHEATZLE DO, MALIA Admitting Unavailable SCHEATZLE DO, MALIA Attending Unavailable TUTTLE COMMERCIAL LINES ACCOUNT EXECUTIVE-SEASONER HAND, DERECK Chavez Consulting Unavaillily BAEZA PhD, EITAN Bautista Consulting Unavailable SAMANTHA DPM, DR ALLISON Bliss Consulting Elio PATRICK MD, JHOAN Consulting Unavailable JERSON WEIR, ALYSON Primary Care Unavailable BRIANA AGUILERA, ALYSON Admitting Unavailable BRIANA AGUILERA, ALYSON Attending Unavailable ALAN WEIR, GERMAN Consulting Unavailable JERSON WEIR, ALYSON Attending Unavailable JERSON WEIR, ALYSON Primary Care Unavailable Kirby COMMERCIAL LINES ACCOUNT EXECUTIVE.SEASONER HAND, Angela Unavailable Suppan COMMERCIAL LINES ACCOUNT EXECUTIVE.SEASONER HAND, Margi A Unavailable Suppan COMMERCIAL LINES ACCOUNT EXECUTIVE.SEASONER HAND, Margi A Unavailable BRIANA AGUILERA, ALYSON Attending Unavailable JERSON WEIR, ALYSON Primary Care Unavailable DARNELL WEIR, JHOAN Consulting Unavailable BRIANA AGUILERA, ALYSON Admitting Unavailable GERMAN PHILLIPS MD Consulting Unavailable Janessa COMMERCIAL LINES ACCOUNT EXECUTIVE.SEASONER HAND, Margi A Unavailable Dr. Alyson Arthur MD Primary Care Provider Dr. Walter Sellers MD Attending Provider Dr. Walter Sellers MD Referring Provider ALYSON ARTHUR Primary Care Unavailable ANGELA SCHMID Referring Unavailable ANGELA SCHMID Attending Unavailable ALYSON ARTHUR Primary Care Unavailable ALYSON ARTHUR Primary Care Unavailable MARGI RIDDLE A Referring Unavailable ALYSON ARTHUR Primary Care Unavailable MARGI RIDDLE A Attending Unavailable ALYSON ARTHUR Primary Care Unavailable ANGELA SCHMID Referring Unavailable JERSON, ALYSON Brewer Primary Care Unavailable ANGELA SCHMID Referring Unavailable FRANKLIN ESPINAL Attending Unavailable ANGELA SCHMID Referring Unavailable JERSON, ALYSON Brewer Primary Care Unavailable TONY MAJANO Referring Unavailable JERSON, ALYSON Primary Care Unavailable AMAURI JO Attending Unavailable [facility], ALYSON Primary Care Unavailable TONY MAJANO Referring Unavailable Raj Stevenson Attending Unavailable [facility] Primary Care Unavailable [facility] Primary Care Unavailable Laura Burkett Attending Unavailable [place], [facility] Primary Care Unavailable BasalWalter bhagat Attending Unavailable BasaliWalter Referring Unavailable [place], Alyson Primary Care Unavailable BasaliWalter Attending Unavailable BasaliWalter Referring Unavailable [place], Alyson Primary Care Unavailable BasaliWalter Attending Unavailable Basali, Walter Referring Unavailable CalabrRaj pollack Attending Unavailable [place], [facility] Primary Care Unavailable Sadia Torres Unavailable Allergies Allergy Classification Reported Allergen(s) Allergy Type Date of Onset Reaction(s) Facility Angiotensin Converting Enzyme (ESTEFANI) Inhibitors (1 source) Lisinopril Drug Allergy 8 Other: See Comments [facility] Corticosteroids (1 source) fluticasone Drug Allergy 2 Other: See Comments [facility] Penicillins (antibiotic) (1 source) Penicillins Drug Allergy 1 [facility] (20 sources) Lisinopril; Translations: [LISINOPRIL] Drug Allergy 8 Other: See [facility] Work Phone: (13 sources) Penicillins; Translations: [penicillins] Drug Allergy 1 [facility] Work Phone: (20 sources) Penicillins Drug Allergy 1 [facility] Work Phone: (10 sources) [facility]illins [facility] (20 sources) fluticasone; Translations: [FLUTICASONE PROPIONATE] Drug Allergy 2 Other: See Comments [facility] (8 sources) NASAL SPRAY; Translations: [NASAL SPRAY] Propensity to adverse reactions 3 Chest tightness [facility] (20 sources) Iodinated Contrast Media; Translations: [IODINATED CONTRAST MEDIA] Drug Allergy 4 GI Upset, Other: See Comments [facility] (8 sources) fluticasone; Translations: [fluticasone nasal] Drug Allergy 4 Nosebleed, Nose Bleeds [facility] (18 sources) Penicillins Drug Allergy 1 Rash [facility] (1 source) fluticasone Drug Allergy 5 [facility] (1 source) Lisinopril Drug Allergy 5 [facility] (1 source) Penicillins Drug allergy (disorder) 5 [facility] Medications Current Medications Medication Drug Class(es) [...] not exceed 5 doses in 24 hours. [id number] 200 actuat albuterol 0.09 mg/actuat metered dose [...] wheezing, # 8 gram(s), 0 Refill(s), Pharmacy: [facility], 155, cm, 04/27/23 19:46:00 EDT, Height, [...] qDay, # 30 tab(s), 0 Refill(s), Pharmacy: [facility], 155, cm, 04/27/23 19:46:00 EDT, Height, [...] BID, # 60 tab(s), 2 Refill(s), Pharmacy: [facility], 155, cm, 04/27/23 19:46:00 EDT, Height, 118, kg, 05/17/23 5:15:00 EDT, Dosing Weight Start Date: 05/19/23 Status: Ordered Start: 04-27-2023 apixaban 5 mg oral tablet Dose : 5 mg = 1 tab(s), Oral, BID, # 60 tab(s), 2 Refill(s), Pharmacy: [facility], 155, cm, 04/23/23 12:45:00 EDT, Height, 123.3, kg, 04/23/23 12:45:00 EDT, Dosing Weight Start Date: 04/27/23 Status: Ordered Comment on above: Take 1 tablet by cristina two times a day. aspirin 81 mg delayed release oral tablet (20 sources) Platelet Aggregation Inhibitor, Nonsteroidal Anti-inflammatory Drug Start: 06-22-2023 take 1 tablet by mouth once daily Aspirin (Adult Aspirin Regimen) 81 mg tablet,delayed release (DR/EC) Active 81 mg PO DAILY June 22, 2023 12:00am Rad Start: 04-07-2023 aspirin 81 mg oral tablet, [...] sources) HMG-CoA Reductase Inhibitor Start: 4 End: 4 take 1 tablet by mouth once [...] Corticosteroid, beta2-Adrenergic Agonist Start: 02-08-20 End: 02-08-20 take 2 puff(s) by inhalation twice daily [...] Puffs as instructed twice daily. 1 Inhaler 07/01/2020 05/28/2021 Discontinued Start: 04-09-2020 End: 05-06-2020 [...] BID, # 120 tab(s), 0 Refill(s), Pharmacy: [facility], 155, cm, 04/27/23 19:46:00 EDT, Height, [...] day. docusate sodium 50 mg / sennosides, mcfp 8.6 mg oral tablet (1 source) Start: 05-19-2023 End: 06-03-2023 take 1 tablet by mouth twice daily Senokot S 50 mg-8.6 mg oral tablet Dose = 2 tab(s), Oral, BID, # 60 tab(s), 0 Refill(s), Pharmacy: [facility], 155, cm, 04/27/23 19:46:00 EDT, Height, [...] neuropathy, with long-term current use of insulin ([facility]) DMII, insulin requiring. Testing 3-5 times q day 2 Each 08/07/2023 Active Start: 10-20-2022 End: 04-07-2023 flash glucose sensor (FREEST YLE ANAHI 2 SENSOR) kit Indications: Controlled type 2 diabetes mellitus with diabetic neuropathy, with long-term current use of insulin ([facility]) Change sensor every 14 days for testing blood sugars 4 times daily or more DX: E11.40 Insulin: YES 6 Each 3 10/20/2022 04/07/2023 Discontinued Start: 10-20-2022 flash glucose sensor (FREESTYLE ANAHI 2 SENSOR) kit Indications: Controlled type 2 diabetes mellitus with diabetic neuropathy, with long-term current use of insulin ([facility]) Change sensor every 14 days for testing blood sugars 4 times daily or more DX: E11.40 Insulin: YES 6 Each 3 10/20/2022 Suspended Start: 10-20-2022 flash glucose sensor (FREESTYLE ANAHI 2 SENSOR) kit Indications: Controlled type 2 diabetes mellitus with diabetic neuropathy, with long-term current use of insulin ([facility]) Change sensor every 14 days for testing blood sugars 4 times daily or more DX: E11.40 Insulin: YES 6 Each 3 10/20/2022 Active Start: 10-05-2022 End: 10-19-2022 flash glucose sensor (FREEST YLE ANAHI 2 SENSOR) kit Indications: Controlled type 2 diabetes mellitus with diabetic neuropathy, with long-term current use of insulin ([facility]) DMII, insulin requiring. Testing 3-5 times q day 2 Each 10/05/2022 10/19/2022 Discontinued Start: 10-05-2022 flash glucose sensor (FREESTYLE ANAHI 2 SENSOR) kit Indications: Controlled type 2 diabetes mellitus with diabetic neuropathy, with long-term current use of insulin ([facility]) DMII, insulin requiring. Testing 3-5 times q day 2 Each 10/05/2022 Active Start: 07-04-2022 End: 10-05-2022 flash glucose sensor (FREEST YLE ANAHI 2 SENSOR) kit Indications: Controlled type 2 diabetes mellitus with diabetic neuropathy, with long-term current use of insulin ([facility]) DMII, insulin requiring. Testing 3-5 times q day 2 Each 07/04/2022 10/05/2022 Discontinued Start: 07-04-2022 flash glucose sensor (FREESTYLE ANAHI 2 SENSOR) kit Indications: Controlled type 2 diabetes mellitus with diabetic neuropathy, with long-term current use of insulin ([facility]) DMII, insulin requiring. Testing 3-5 times q day 2 Each 07/04/2022 Active Start: 11-05-2021 End: 07-04-2022 flash glucose sensor (FREEST YLE ANAHI 2 SENSOR) kit Indications: Controlled type 2 diabetes mellitus with diabetic neuropathy, with long-term current use of insulin ([facility]) DMII, insulin requiring. Testing 3-5 times q day 2 Each 11/05/2021 07/04/2022 Discontinued Start: 11-05-2021 flash glucose sensor (FREESTYLE ANAHI 2 SENSOR) kit Indications: Controlled type 2 diabetes mellitus with diabetic neuropathy, with long-term current use of insulin ([facility]) DMII, insulin requiring. Testing 3-5 times q day 2 Each 11/05/2021 Active Comment on above: DMII, insulin requir ing. Testing 3-5 times q day Change sensor every 14 days for testing blood sugars 4 times daily or more DX: E11.40 Insulin: YES guaiFENesin 20 mg/ml oral solution (20 sources) Start: take 1 dose by mouth every six [...] Comment on above: Take 2 tablets by [facility] twice daily. 10 mL by ORAL/FEEDIN G TUBE route every 6 hours. heparin 5000 units/mL injection (1 source) Start: inject 1 dose by subcutaneous injection every eight hours heparin 5000 units/mL injection Dose : 5,000 unit(s) =, Subcutaneous, q8h, mL, 0 Refill(s) Start Date: 04/07/23 Status: Ordered hydrocortisone 10 mg/ml / neomycin 3.5 mg/ml / polymyxin b 64720 unt/ml otic suspension (1 source) Aminoglycoside Antibacterial, Polymyxin-class Antibacterial, Corticosteroid Start: End: neomycin-polymyxi n-hydrocortisone (CORTISPORIN) 3.5-10,000-1 mg/mL-unit/mL-% otic suspension Indications: Acute otitis externa, unspecified laterality, unspecified type Use 4 drops in the left ear three times a day for 5 days. 10 mL 08/13/2024 08/18/2024 Active 3 ml insulin aspart, human 100 unt/ml pen injector (20 sources) Insulin Analog Start: End: insulin aspart U-100 (NOVOLOG FLEXPEN U-100 INSULIN) [...] Units subcutaneously daily at bedtime. 5 each 3 08/12/2024 08/12/2025 Active Start: 02-08-2024 End: 02-07-2025 insulin glargine (LANTUS MATTIE OSTAR U-100 INSULIN) 100 unit/mL (3 mL) Indications: Type 2 diabetes mellitus without complication, without long-term current use of insulin (HCC) Inject 20 Units subcutaneously daily at bedtime. 5 Each 3 02/08/2024 08/12/2024 Discontinued (Adjust Sig - Block [...] acSupper, # 10 mL, 0 Refill(s), Pharmacy: [facility], 155, cm, 04/27/23 19:46:00 EDT, Height, [...] mL) insulin pen Active 12 U SC .QA October 14, 2022 12:00am diabetes Start: 12-27-2021 [...] BID, # 60 tab(s), 0 Refill(s), Pharmacy: [facility], 155, cm, 04/27/23 19:46:00 EDT, Height, [...] topical powder (1 source) Azole Antifungal Start: 4 End: 4 Desenex 2% topical powder Apply 1 nan, Topical, BID, # 43 gram(s), 0 Refill(s), Pharmacy: [facility], Powder, 155, cm, 04/27/23 19:46:00 EDT, [...] tablet by cristina th daily with breakfast. Iz-Vzu-Ftqrg-K1-Lycop en-Lutein (Bhavanaum Silver Men) 392-75-135-300 mcg tablet (5 sources) Start: 06-22-2023 Jx-Mkg-Pjiov-K1-Lycopen- Lutein (Bhavanaum Silver Men) 374-31-928-300 mcg tablet Active 1 {tbl} PO DAILY June 22, 2023 12:00am supplement Start: 06-22-2023 Yn-Afw-Ovevp-K 2-Poodxkz-Cihsgq (Roland Doyle) 082-51-938-300 mcg tablet Active 1 {tbl} PO DAILY June 22, 2023 12:00am Start: 06-22-2023 take 1 tablet by cristina th once daily Gq-Tyc-Aigej-B7-Khizsop-Gdioxu (Roland Doyle) 313-05-978-300 mcg tablet Active 1 TABLET PO DAILY [...] 1 Drop (AK-DILATE, DREAD-SYNEPHRINE) polyethylene glycol 3350 72430 mg powder for oral solution (20 sources) [...] TWICE A DAY December 11, 2012 12:00am Violet 1st, 2023 1:14pm NEUROPATHY Start: 12-11-2012 End: 02-08-2021 take [...] proparacaine 0.5 % 1 Drop (ALCAINE) sennosides, mcfp 1.76 mg/ml oral solution (7 sources) Start: [...] BID, # 6.9 gram(s), 0 Refill(s), Pharmacy: [facility], 155, cm, 04/27/23 19:46:00 EDT, Height, [...] BID, # 56 gram(s), 0 Refill(s), Pharmacy: [facility], 155, cm, 04/27/23 19:46:00 EDT, Height, [...] on above: Take 1 tablet by cristina three times daily. amiodarone hydrochloride 200 mg [...] qDay, # 30 tab(s), 0 Refill(s), Pharmacy: [facility], 155, cm, 04/27/23 19:46:00 EDT, Height, [...] complication, without long-term current use of insulin ([facility]) Dispense 1 kit 1 Each 0 12/21/2015 04/07/2023 Discontinued Start: 12-21-2015 Blood-Glucose Meter misc Indications: Type 2 diabetes mellitus without complication, without long-term current use of insulin ([facility]) Dispense 1 kit 1 Each 0 12/21/2015 Suspended Start: 12-21-2015 Blood-Glucose Meter misc Indications: Type 2 diabetes mellitus without complication, without long-term current use of insulin ([facility]) Dispense 1 kit 1 Each 0 [...] above: Take 1 tablet by cristina th twice daily. celecoxib 200 mg oral capsule [...] (20 sources) Lincosamide Antibacterial Start: 10-26-19 End: 02-23-20 24 take 1 capsule by mouth four times daily clindamycin (CLEOCIN) 300 mg capsule Indications: Cutaneous abscess of right lower extremity , Cellulitis of skin Take 1 capsule by mouth four times daily. 40 capsule 10/25/2022 04/07/2023 Discontinued Comment on above: Take 1 capsule by [facility] four times daily. Compression Knee Highs (20 [...] Comment on above: Take 1 capsule by [facility] every 12 (twelve) hours. Take 25 mg by mouth two times a day. 24 hr dilTIAZem hydrochloride 180 mg extended release oral capsule (20 sources) Calcium Channel Maren Start: 4 End: 4 take 1 capsule by mouth once daily Diltiazem Hcl 180 MG capsule,extended release 24 hr Discontinued 180 mg PO DAILY November 20, 2013 12:00am June 22, 2023 4:59pm Comment on above: Take 1 capsule by [facility] once daily. 0.5 ml dulaglutide 3 mg/ml auto-injector (20 sources) GLP-1 Receptor Agonist Start: 3 End: dulaglutide (TRULICITY) 1.5 mg/0.5 mL pen injector Indications: Controlled type 2 diabetes mellitus with diabetic neuropathy, with long-term current use of insulin ([facility]) Inject 3 mg subcutaneously one time [...] neuropathy, with long-term current use of insulin ([facility]) Inject 3 mg subcutaneously one time a week. 2 mL 11 11/12/2021 11/09/2022 Discontinued Start: 11-12-2021 End: 11-12-2022 inject 3 mg by subcutaneous injection every week dulaglutide (TRULICITY) 3 mg/0.5 mL pen injector Indications: Controlled type 2 diabetes mellitus with diabetic neuropathy, with long-term current use of insulin (HCC) Inject 3 mg subcutaneously one time a week. 2 mL 11/12/2021 11/12/2022 Active Comment on above: Inject 3 mg subcutan eously one time a week. ergocalciferol 1.25 mg oral capsule (20 sources) Provitamin D2 Compound Start: 10-09-2022 End: 06-22-2023 Ergocalciferol (Vitamin D2) (Vitamin D2) 1,250 mcg (50,000 unit) capsule Discontinued 19077 U PO .SUNDAY October 09, 2022 12:00am [...] mouth one time a week. 4 capsule 07/01/2020 05/28/2021 Discontinued Comment on above: Take 1 capsule by mo [facility] one time a week. famotidine 20 mg oral tablet (20 sources) Histamine-2 Receptor Antagonist Start: 10-26-19 End: 04-23-19 24 take 1 tablet by mouth once daily at bedtime famotidine (PEPCID) 20 mg tablet Indications: Gastroesophageal reflux disease with esophagitis without hemorrhage Take 1 tablet by mouth daily at bedtime. 30 tablet 5 10/25/2022 04/07/2023 Discontinued Comment on above: Take 1 tablet by cristina daily at bedtime. FLUoxetine 20 mg oral capsule (13 sources) Serotonin Reuptake Inhibitor Start: 05-24-19 End: 10-23-19 22 take 1 capsule by mouth once daily FLUoxetine (PROZAC) 20 mg capsule Indications: Bipolar 1 disorder (HCC) Take 1 capsule by mouth once daily. 30 capsule 2 05/24/2019 10/22/2021 Discontinued Comment on above: Take 1 capsule by mo [facility] once daily. furosemide 40 mg oral tablet [...] complication, without long-term current use of insulin ([facility]) Take 1 tablet by mouth daily with [...] (20 sources) Thiazide Diuretic Star t: 10-02 End: 09-14 take 1 tablet by mouth [...] Daily, # 10 mL, 0 Refill(s), Pharmacy: [facility], 155, cm, 04/27/23 19:46:00 EDT, Height, [...] tablet Discontinued 750 mg PO DAILY 7 October 11, 2022 12:00am June 22, 2023 [...] above: Take 1 tablet by cristina th four times daily. morphine sulfate 2 mg/ml [...] Cholinergic Nicotinic Agonist Start: 06-29-19 End: 02-27-19 24 apply 1 dose transdermal route every twenty-four [...] as dir ected every 24 hours. nystatin 409850 unt/ml oral suspension (2 sources) Polyene Antifungal [...] in NaCl (PF) 0.9% 10 mL injection ([employer]) (20 sources) Start: 05-23-2022 End: 03-16-2023 perflutren [...] Comment on above: [facility] predniSONE 50 mg oral [...] Discontinu ed 40 MG PO WITH BREAKFAST October 11, 2022 12:00am June 22, 2023 4:54pm Start: 10-18-2021 End: 10-09-2022 take 1 tablet by mouth once daily Prednisone 50 mg tablet Discontinued 50 mg PO DAILY October 18, 2021 12:00am October 09, 2022 [...] oral tablet (20 sources) Opioid Agonist Start: End: take 1 tablet by mouth every [...] Coronary arteriosclerosis; Translations: [Atherosclerotic heart disease of [place] coronary artery without angina pectoris] 03-20-2023 Chronic [...] Osteoarthritis; Translations: [Unspecified osteoarthritis, unspecified site] Onset: Chronic Other aftercare (1 source) Drug therapy finding; Translations: [Other terminologist (current) drug therapy] Episodic Other aftercare (2 sources) Long-term current use of insulin; Translations: [termite control representative (current) use of insulin] Episodic Other aftercare (1 source) Long-term current use of aspirin; Translations: [termite control representative (current) use of aspirin] Episodic Other aftercare (2 sources) Long-term current use of drug therapy; Translations: [Other terminologist (current) drug therapy] Episodic Other aftercare (2 sources) Long-term current use of anticoagulant; Translations: [halfway (current) use of anticoagulants] Episodic Other and [...] constipation; Translations: [Drug induced constipation] Episodic Other gastrointestinal disorders (1 source) Other specified symptoms and signs involving the digestive system and abdomen; Translations: [Other specified symptoms and signs involving the digestive system and abdomen] Onset: 5 Episodic Other inflammatory condition of skin (1 [...] screening for malignant neoplasm of prostate] Onset: Episodic Other skin disorders (1 source) Ingrowing [...] aftercare (20 sources) Insulin dose changed; Translations: [halfway (current) use of insulin] Onset: 4 03-25-2023 Episodic Other aftercare (2 sources) halfway (current) use of insulin; Translations: [Controlled type 2 diabetes mellitus with diabetic neuropathy, with long-term current use of insulin (HCC)] Onset: 4 Episodic Other aftercare (1 source) halfway (current) use of anticoagulants; Translations: [Chronic anticoagulation] [...] Test Name Value Interpretation Reference Range Facility Abdomen/Pelvis W IV Cont ONL Yon 12-15-2024 Abdomen/Pelvis W IV Cont ONLY [facility] Services [address] [place] [address] [id number] Abdomen/Pelvis W IV Cont ONLY MR#: [id number] Acct: [id number] Name: KIEL CATHERINE Rep #: [id number] : 1960 M 64 From: Ruben Barrow MD PCP: Dr. Alyson Arthur MD Status: [facility] ER Study: Abdomen/Pelvis W IV Cont ONLY Date of Exam: Exam# [id number] Ordering Dr: Josué Villalobos MD PROCEDURE: ABDOMEN/PELVIS W IV CONT ONLY 12/15/2024 REASON FOR EXAM: RIGHT UPPER AND LOWER QUADRANT ABDOMINAL PAIN. TECHNIQUE: Procedure Code: [id number] Modality: CT Procedure: ABDOMEN/PELVIS W IV CONT ONLY Coronal and Sagittal reconstruction series were provided. CONTRAST: Not reported by the technologist One or more dose reduction techniques were used (e.g., Automated exposure control, adjustment of the mA and/or kV according to patient size, use of iterative reconstruction technique. RADIATION DOSE SUMMARY: CTDlvol: 24.1 mGy DLP: 1338 mGycm COMPARISON: Abdominal radiograph 06/24/2019 FINDINGS: Lung bases: Prosthetic aortic valve. Median sternotomy wires. Liver: Diffuse fatty infiltration. No discrete lesion. Gallbladder: Unremarkable Spleen: Unremarkable Pancreas: Unremarkable Adrenals: Unremarkable Kidneys: No hydronephrosis or stone. Simple cyst in the left kidney. Bladder: Collapsed, limiting evaluation Reproductive Organs: Unremarkable Bowel: No obstruction or wall thickening. Appendix: Normal caliber Lymph nodes: No suspicious lymph node enlargement. Vasculature: Diffuse atherosclerotic calcifications are noted. Peritoneum / Retroperitoneum: Pneumoperitoneum, predominantly at the mid to upper aspect of the anterior abdomen. There is stranding and air present in the mesentery near the transverse colon (sagittal image 72). Small volume of free fluid in the pelvis and right lower abdominal quadrant. Bones: Postoperative and degenerative changes of the spine. Soft tissues: There is a fat density lesion with peripheral rim which is isodense to muscle measuring 1.7 by 4.6 by 7.0 cm at the medial aspect of the right gluteal musculature (sagittal image 80). CT/Abdomen/Pelvis W IV Cont ONLY IMPRESSION: 1. Pneumoperitoneum, concerning for hollow viscus perforation, possibly of the stomach or transverse colon though source is not definitively identified. 2. Small volume of free fluid in the pelvis and right lower abdominal quadrant. 3. Fat density lesion near the medial aspect of the right gluteal musculature may represent a lipoma. Correlate with exam findings. Red Alert: Pneumoperitoneum The critical findings in the findings and impression above were relayed directly by me by telephone to Josué Villalobos on 12/15/2024 at 7:49 pm with readback verification. Reading Location: [id number] CC: Dr. Josué Villalobos MD; Dr. Alyson Arthur MD Multi Disciplined Language Analyst: Signed Normal [facility] CBC W/Diff, Automatedon 11-0 Hemoglobin (Bld) [Mass/Vol] 18.3 g/dL Invalid Interpretation Code 13.0-16.5 [facility] Comment on above: Result Comment: CRIT ICAL VALUE CALLED TO SHAHNAZ 12/15/24 4062 Milly Coley. RESULTS READ BACK BY SAME. Performed By: #### L 501.4021, L100.0100 ####[facility] [address] [place], [address] Absolute Lymph 1.68 X10 3/uL Normal 0.83-4.51 [facility] Comment on above: Performed By: #### L 501.4021, L100.0100 ####[facility] [address] [place], [address] Absolute Neut 11.5 X10 3/uL High 2.0-7.7 [facility] Comment on above: Performed By: #### L 501.4021, L100.0100 ####[facility] [address] [place], [address] Basophils/100 WBC (Bld) 0.5 % Normal 0-1 [facility] Comment on above: Performed By: #### L 501.4021, L100.0100 ####[facility] [address] [place], [address] Eosinophils/100 WBC (Bld) 0.2 % Normal 0-5 [facility] Comment on above: Performed By: #### L 501.4021, L100.0100 ####[facility] [address] [place], [address] Erythrocyte distribution width (RBC) [Ratio] 12.8 % Normal 11.6-14.6 [facility] Comment on above: Performed By: #### L 501.4021, L100.0100 ####[facility] [address] [place], [address] Hematocrit (Bld) [Volume fraction] 53.1 % Normal 40-54 [facility] Comment on above: Performed By: #### L 501.4021, L100.0100 ####[facility] [address] [place], [address] IG% 0.300 Normal 0.0-0.9 [facility] Comment on above: Result Comment: IG% - Immature Granulocytes (promyelocytes, myelocytes and metamyelocytes) > 1% indicates that a LEFT SHIFT is Present. Performed By: #### L 501.4021, L100.0100 ####[facility] [address] [place], [address] Lymphocytes/100 WBC (Bld) 12.0 % Low 19-41 [facility] Comment on above: Performed By: #### L 501.4021, L100.0100 ####[facility] [address] [place], [address] MCH (RBC) [Entitic mass] 30.2 pg Normal 27.0-32.0 [facility] Comment on above: Performed By: #### L 501.4021, L100.0100 ####[facility] [address] [place], [address] MCHC (RBC) [Mass/Vol] 34.5 g/dL Normal 32-36 [facility] Comment on above: Performed By: #### L 501.4021, L100.0100 ####[facility] [address] [place], [address] MCV (RBC) [Entitic vol] 87.6 fL Normal 80-94 [facility] Comment on above: Performed By: #### L 501.4021, L100.0100 ####[facility] [address] [place], [address] Monocytes/100 WBC (Bld) 4.6 % Normal 0-10 [facility] Comment on above: Performed By: #### L 501.4021, L100.0100 ####[facility] [address] [place], [address] Neutrophils/100 WBC (Bld) 82.4 % High 47-70 [facility] Comment on above: Performed By: #### L 501.4021, L100.0100 ####[facility] [address] [place], [address] Nucleated RBC (Bld) [#/Vol] 0 10*3/uL Normal 0-5 [facility] Comment on above: Performed By: #### L 501.4021, L100.0100 ####[facility] [address] [place], [address] Platelet mean volume (Bld) [Entitic vol] 12.2 fL High 6.2-12.0 [facility] Comment on above: Performed By: #### L 501.4021, L100.0100 ####[facility] [address] [place], [address] Platelets (Bld) [#/Vol] 234 10*3/uL Normal 150-450 [facility] Comment on above: Performed By: #### L 501.4021, L100.0100 ####[facility] [address] [place], [address] RBC (Bld) [#/Vol] 6.06 10*6/uL Normal 4.6-6.2 [facility] Comment on above: Performed By: #### L 501.4021, L100.0100 ####[facility] [address] [place], [address] RDW SD 41.0 fl Normal 35.1-43.9 [facility] Comment on above: Performed By: #### L 501.4021, L100.0100 ####[facility] [address] [place], [address] WBC (Bld) [#/Vol] 14.0 10*3/uL High 4.4-11.0 [facility] Comment on above: Performed By: #### L 501.4021, L100.0100 ####[facility] [address] [place], [address] Chest PA and Lateralon 12-15 Chest PA and Lateral [facility] [address] [place] [address] Chest PA and Lateral MR#: [id number] Acct: [id number] Name: KIEL CATHERINE Rep #: [id number] : 1960 M 64 From: Ruben Barrow MD PCP: Dr. Alyson Arthur MD Status: REG ER Study: Chest PA and Lateral Date of Exam: 12/15/24 Exam# [id number] Ordering Dr: Josué Villalobos MD PROCEDURE: CHEST PA AND LATERAL 12/15/2024 REASON FOR EXAM: DYSPNEA TECHNIQUE: Procedure Code: RADCXR Modality: DX Procedure: CHEST PA AND LATERAL COMPARISON: Concurrent CT abdomen and pelvis, chest radiograph 10/18/2023 FINDINGS: Hardware: Median sternotomy wires Mediastinum: Enlarged cardiomediastinal silhouette, unchanged Lungs: No focal consolidation or significant pleural effusion. Bones: Degenerative changes are identified within the thoracic spine. There is free air under the right hemidiaphragm. RAD/Chest PA and Lateral IMPRESSION: 1. Pneumoperitoneum, better evaluated on concurrent CT abdomen and pelvis. 2. No acute cardiopulmonary abnormality. Reading Location: [facility] CC: Dr. Josué Villalobos MD; Dr. Alyson Arthur MD Multi Disciplined Language Analyst: Signed Normal [facility] Comprehensive Metabolic Prof ilon 12-15-2024 Albumin [Mass/Vol] 4.1 g/dL Normal 3.4-4.8 [facility] Comment on above: Performed By: #### L 503.7505, L501.2450, L500.4050 #### [facility] [address] [place], [address] Albumin/Globulin [Mass ratio] 1.4 {ratio} Normal 0.9-2.4 [facility] Comment on above: Performed By: #### L 503.7505, L501.2450, L500.4050 #### [facility] [address] [place], [address] ALK PHOS 112 U/L Normal 40-129 [facility] Comment on above: Performed By: #### L 503.7505, L501.2450, L500.4050 #### [facility] [address] [place], [address] ALT [Catalytic activity/Vol] 11 U/L Normal <=46 [facility] Comment on above: Performed By: #### L 503.7505, L501.2450, L500.4050 #### [facility] [address] [place], [address] AST [Catalytic activity/Vol] 19 U/L Normal <=37 [facility] Comment on above: Result Comment: Hemo lysis present, Results??could be affected. ?? Performed By: #### L 503.7505, L501.2450, L500.4050 #### [facility] [address] [place], [address] Bilirubin [Mass/Vol] 0.52 mg/dL Normal 0.00-1.30 [facility] Comment on above: Performed By: #### L 503.7505, L501.2450, L500.4050 #### [facility] [address] [place], [address] BUN/CRE 21.1 RATIO High 10-20 [facility] Comment on above: Performed By: #### L 503.7505, L501.2450, L500.4050 #### [facility] [address] [place], [address] Calcium [Mass/Vol] 9.5 mg/dL Normal 7.6-11.0 [facility] Comment on above: Performed By: #### L 503.7505, L501.2450, L500.4050 #### [facility] [address] [place], [address] Chloride [Moles/Vol] 97 mmol/L Low 98-108 [facility] Comment on above: Performed By: #### L 503.7505, L501.2450, L500.4050 #### [facility] [address] [place], [address] CO2 [Moles/Vol] 24.9 mmol/L Normal 21.0-32.0 [facility] Comment on above: Performed By: #### L 503.7505, L501.2450, L500.4050 #### [facility] [address] [place], [address] Creatinine [Mass/Vol] 0.93 mg/dL Normal 0.70-1.20 [facility] Comment on above: Performed By: #### L 503.7505, L501.2450, L500.4050 #### [facility] [address] [place], [address] ECRCL 94.11 ml/min Normal 50-250 [facility] Comment on above: Performed By: #### L 503.7505, L501.2450, L500.4050 #### [facility] [address] [place], [address] GAP 15 Normal 5-15 [facility] Comment on above: Performed By: #### L 503.7505, L501.2450, L500.4050 #### [facility] [address] [place], [address] GFR/1.73 sq M.predicted among non-blacks MDRD (S/P/Bld) [Vol rate/Area] 93 mL/min/{1.73_m2} Normal >60 [facility] Comment on above: Result Comment: mL/m in/1.73m2 CKD-EPI Creatinine Equation (2020) Performed By: #### L 503.7505, L501.2450, L500.4050 #### [facility] [address] [place], [address] Globulin (S) [Mass/Vol] 2.9 g/dL Normal 2.2-4.2 [facility] Comment on above: Performed By: #### L 503.7505, L501.2450, L500.4050 #### [facility] [address] [place], [address] Glucose [Mass/Vol] 259 mg/dL High 70-99 [facility] Comment on above: Performed By: #### L 503.7505, L501.2450, L500.4050 #### [facility] [address] [place], [address] Potassium [Moles/Vol] 3.9 mmol/L Normal 3.3-5.1 [facility] Comment on above: Result Comment: Hemo lysis present, Results??could be affected. ?? Performed By: #### L 503.7505, L501.2450, L500.4050 #### [facility] [address] [place], [address] Sodium [Moles/Vol] 136 mmol/L Normal 133-145 [facility] Comment on above: Performed By: #### L 503.7505, L501.2450, L500.4050 #### [facility] [address] [place], [address] T PROT 7.1 g/dL Normal 5.9-8.4 [facility] Comment on above: Performed By: #### L 503.7505, L501.2450, L500.4050 #### [facility] [address] [place], [address] Urea nitrogen [Mass/Vol] 20 mg/dL High 4-19 [facility] Comment on above: Performed By: #### L 503.7505, L501.2450, L500.4050 #### [facility] [address] [place], [address] Consultation - Hospitaliston 12-15-2024 Consultation - Hospitalist [facility] Medical Records Department [address] [place] [address] Consultation - Hospitalist 12/15/242033 MR#: [id number] Acct: [id number] Name: KIEL CATHERINE Rep #: [id number] : 1960 64 From: Laura Burkett MD PCP: Dr. Alyson Arthur MD Status:REG ER Location: ED Assessment Plan Assessment/Plan (1) Perforated abdominal viscus: PLAN: Plan The patient is a 64 y/o M w/ PMHx: Morbid obesity, Hx CVA w/ chronic R sided hemiplegia/facial droop, slurred speech, HTN, HLD, Valvular Heart Disease s/p bioprosthetic porcine AVR, GERD, Diabetes mellitus type II with chronic neuropathy, COPD/Asthma, Anxiety and Depression/Bipolar disorder, MANISH on CPAP, Tobacco use who presents to the [facility] ED on 12/15/24 with history of abdominal pain primarily in the right upper and lower quadrant ongoing over the last 12 to 24 hours with no associated nausea or emesis no any fevers or chills with underlying chronic issues with constipation with mild dyspnea prompting eventual ED evaluation be cautious. #1. Intractable acute abdominal pain, right sided secondary to acutely perforated abdominal viscus of unclear location: Patient being transition from the ED to the OR per primary service and following this plan for ICU transition, did discuss with general surgeon and recommend if any concerns low threshold to maintain intubated status at least overnight, would expect continued use of hydration, IV PPI versus IV famotidine, suspect likely patient will have NG tube following OR but uncertain, would expect patient to be maintained on IV Cipro/Flagyl given penicillin allergy however will defer to primary service, would expect continued trending of CBC, CMP and will also obtain magnesium given diabetic history of medications, antiemetics/pain regimen per primary service, would expect PT/OT/case management also for discharge planning assistance. #2. History CVA: Patient with chronic right-sided hemiplegia/facial droops, slurred speech, holding antiplatelet/anticoagulant therapy given plan for emergent OR as noted, add back once cleared per surgery, holding statin therapy and hypertensive regimen given emergent surgery with perforated abdominal viscus, add back once clinically appropriate and amenable per surgery. Suspect that at some point patient possibly had episode of atrial fibrillation as to the reason why he is on a NOAC in addition to an antiplatelet therapy but uncertain. #3. Valvular heart disease: Status post bioprosthetic porcine AVR, most recent echocardiogram 06/28/2023 with mild concentric LVH, LVEF 65%, mildly enlarged LA, bioprosthetic AV functioning normally with a mean peak gradient 5.2 mmHg. #4. Hypertension: Holding all oral regimen given presentation as noted #1, add back hypertensive regimen once cleared per surgery, as needed IV hydralazine in interim. #5. Hyperlipidemia: Holding all oral regimen given presentation as noted #1, add back statin therapy once cleared per surgery. #6. Chronic COPD/asthma: Will temporarily hold home inhalers in the interim transition to ATC budesonide therapy, PRN albuterol, HOB, IS parameters. Temporarily holding oral daily prophylactic azithromycin given perforated viscus as noted #1, add back once appropriate. Maintained as noted above on antibiotic therapy. #7. Diabetes mellitus type II with chronic neuropathy: Hold oral home regimen, will continue long- acting insulin regimen with one half dose potential while n.p.o. versus hold pending blood sugar trending, n.p.o. status given ##1 presentation, NPO status, maintain on every 6 hours accu checks w/ ISS. #8. Tobacco Abuse: Encouraged cessation, inpatient consultation per RT, NR if desired. #9. MANISH: CPAP nightly normally however given presentation #1 will defer any PAP therapy to avoid worsening his perforation status. #10. Morbid Obesity: Weight loss and lifestyle changes encouraged, nutrition consulted. #11. Anxiety depression/bipolar disorder: Holding all psychiatric regimen, add back once oral intake cleared for surgery. #12. DVT prophylaxis: SCDs, holding NOAC and antiplatelet therapy temporarily given plan for surgical intervention emergently as noted. #13. CODE status: Patient healthcare part returning living will are not in place however notes his would be his medical decision-maker if necessary. Discussed CODE status at length including difference between FULL code, DNR-CCA and DNR-CC status. Following discussions about the differences in these status, requested Full Code status. Advanced Care Planning Face to Face Time: 16 minutes. HPI Consult Data Date of Consult: 12/15/24 Attending Care Provider: Dr. Stevenson, General Surgery HPI Narrative Reason for Consultation: Medical consultation. HPI Narrative: The patient is a 64 y/o M w/ PMHx: Morbid obesity, Hx CVA w/ chronic R sided hemiplegia/facial (more content not included)... Normal [facility] Emergency Department Summary on 12-15-2024 Emergency Department Summary [facility] Medical Records Department [address] [place] [address] Emergency Department Summary 12/15/24 MR#: [id number] Acct: [id number] Name: KIEL CATHERINE Rep #: [id number] : 1960 64 From: Josué Villalobos MD PCP: Dr. Alyson Arthur MD Status:[place] [facility] [place] ICU ICU03-1 HPI HPI - GI History of Present Illness Chief Complaint: Abd Pain Informant: patient Abdominal Pain/Flank Pain Onset: Today Context: Gradual Onset Timing: Continuous Location: RUQ and RLQ Current Severity: Moderate Maximum Severity: Moderate Worsened by: Nothing Relieved by: Nothing Nausea/Vomiting/Emesis GI Symptom: Negative for Nausea or Vomiting Diarrhea/Melena/Hematochez ia GI Symptom: Negative for Diarrhea, Melena or Hematochezia Associated Symptoms Associated Symptoms: Negative for Dysuria, Frequency, Hematuria or Urgency Narrative Narrative: 64-year-old male history of CAD, diabetes, COPD, open heart surgery in 2022 for valve. States today he is having right-sided abdominal pain both right upper and right lower quadrant going on for the last few hours. He denies nausea or vomiting. He denies fever or chills. Says he does have chronic constipation. Denies any dysuria. Also states he is short of breath. Denies any chest pain. No hemoptysis. He is on Eliquis. Prior similar symptoms: No Recent Illness/Hospitalization: No PFSH PFS Medical History Stroke Carpal tunnel syndrome, bilateral LVH (left ventricular hypertrophy) Essential (primary) hypertension Diabetic neuropathy Degenerative disc disease Atherosclerotic heart disease of [place] coronary artery without angina pectoris Bipolar 1 [...] tablet,delayed 40 mg PO DAILY reflux 10/30/20 History release acetaminophen 500 mg tablet 1,000 mg PO TID PRN Pain 10/18/21 Unknown History albuterol sulfate 90 mcg/actuation 1 - 2 puff inhalation Q4H PRN IN N 10/18/21 Unknown Rx aerosol inhaler (Ventolin HFA) Wheezing #8.5 grams insulin aspart U-100 100 unit/mL 2 unit subcut TID diabetes 3 06/22/23 History (3 mL) subcutaneous pen (Novolog FlexPen U-100 Insulin aspart) insulin glargine 100 unit/mL (3 12 unit subcut .QAM diabetes 10/1406/22/23 History mL) subcutaneous pen pregabalin 100 mg capsule (Lyrica) 100 mg PO DAILY NEUROPATHY 10/1406/22/23 History amlodipine 5 mg tablet 5 mg PO DAILY blood pressure 06/2106/22/23 History apixaban 5 mg tablet (Eliquis) 5 mg PO BID blood thinner 06/22/23 06/22/23 History aspirin 81 mg tablet,delayed 81 mg PO DAILY heart health 06/22/23 History release (Adult Aspirin Regimen) bumetanide 1 mg tablet 2 mg PO BID edema 06/22/23 4 History docusate sodium 100 mg capsule 100 mg PO DAILY PRN constipation 0 06/22/23 Unknown History (Col-Rite) metoprolol tartrate 25 mg tablet 37.5 mg PO Q12H blood pressure / 0 06/22/23 06/22/23 History heart yvwvvjhw-nm-hgwnz 300 mcg-K 60 1 tab PO DAILY supplement 06/22/23 06/22/23 History mcg-lycop 600 mcg-lutein 300 mcg tablet (Centrum Silver Men) ondansetron HCl 4 mg tablet 4 mg PO Q8H PRN PRN nausea and 11/0606/22/23 History vomiting pregabalin 200 mg capsule 200 mg PO DAILY nerve pain 4 06/22/23 History tramadol 50 mg tablet 50 mg PO Q6H PRN pain 06/22/2311/06 History trazodone 50 mg tablet 50 mg PO QHS sleep 06/22/23 History calcium carbonate 500 mg (2.5 x 200 mg calcium (500 06/24/23 Unknown Rx mg)) PO Q6H PRN PRN HEARTBURN #0 tabs azithromycin 500 mg tablet 500 mg PO DAILY 5 days #5 tabs 06/06 Unknown Rx Allergy/AdvReac Type Severity Reaction Status Date / Time Penicillins Allergy Hives Verified 12/15/24 17:40 fluticasone (From Flonase) AdvReac Severe Nose Bleeds Verified 12/15/24 17:40 lisinopril AdvReac Intermediate Upset Verified 12/15/24 17:40 Stomach NASAL SPRAY AdvReac Intermediate Chest Uncoded 10/09/22 14:22 tightness Family History (Reviewed 12/15/24 @ 1 (more content not included)... Normal [facility] H AND P Exam - Surgicalon H&P Exam - Surgical [facility] Medical Records Department [address] [place] [address] H P Exam - Surgical 12/15/242045 MR#: [id number] Acct: [id number] Name: KIEL CATHERINE Rep #: [id number] : 1960 64 From: Raj Stevenson MD PCP: Dr. Alyson Arthur MD Status:REG ER Location: ED HPI - General HPI Narrative KIEL CATHERINE, is a 64 M who presents with severe abdominal pain. He reports the pain is on the right side and he thought he had appendicitis. The pain started today after he ate. He did have some vomiting. He reports the pain is on the right side. It does radiate to the rest of his abdomen. He denies fevers or chills. [facility] Medical History Stroke Carpal tunnel syndrome, bilateral LVH (left ventricular hypertrophy) Essential (primary) hypertension Diabetic neuropathy Degenerative disc disease Atherosclerotic heart disease of [place] coronary artery without angina pectoris Bipolar 1 [...] tablet,delayed 40 mg PO DAILY reflux 10/30/20 History release acetaminophen 500 mg tablet 1,000 mg PO TID PRN Pain 10/18/21 Unknown History albuterol sulfate 90 mcg/actuation 1 - 2 puff inhalation Q4H PRN IN N 10/18/21 Unknown Rx aerosol inhaler (Ventolin HFA) Wheezing #8.5 grams insulin aspart U-100 100 unit/mL 2 unit subcut TID diabetes 3 06/22/23 History (3 mL) subcutaneous pen (Novolog FlexPen U-100 Insulin aspart) insulin glargine 100 unit/mL (3 12 unit subcut .QAM diabetes 10/1406/22/23 History mL) subcutaneous pen pregabalin 100 mg capsule (Lyrica) 100 mg PO DAILY NEUROPATHY 10/1406/22/23 History amlodipine 5 mg tablet 5 mg PO DAILY blood pressure 06/2106/22/23 History apixaban 5 mg tablet (Eliquis) 5 mg PO BID blood thinner 06/22/23 06/22/23 History aspirin 81 mg tablet,delayed 81 mg PO DAILY heart health 06/22/23 History release (Adult Aspirin Regimen) bumetanide 1 mg tablet 2 mg PO BID edema 06/22/23 4 History docusate sodium 100 mg capsule 100 mg PO DAILY PRN constipation 0 06/22/23 Unknown History (Col-Rite) metoprolol tartrate 25 mg tablet 37.5 mg PO Q12H blood pressure / 0 06/22/23 06/22/23 History heart abmtqamv-rx-pdoqd 300 mcg-K 60 1 tab PO DAILY supplement 06/22/23 06/22/23 History mcg-lycop 600 mcg-lutein 300 mcg tablet (Centrum Silver Men) ondansetron HCl 4 mg tablet 4 mg PO Q8H PRN PRN nausea and 11/0606/22/23 History vomiting pregabalin 200 mg capsule 200 mg PO DAILY nerve pain 4 06/22/23 History tramadol 50 mg tablet 50 mg PO Q6H PRN pain 06/22/2311/06 History trazodone 50 mg tablet 50 mg PO QHS sleep 06/22/23 History calcium carbonate 500 mg (2.5 x 200 mg calcium (500 06/24/23 Unknown Rx mg)) PO Q6H PRN PRN HEARTBURN #0 tabs azithromycin 500 mg tablet 500 mg PO DAILY 5 days #5 tabs 06/06 Unknown Rx Allergy/AdvReac Type Severity Reaction Status Date / Time Penicillins Allergy Hives Verified 12/15/24 17:40 fluticasone (From Flonase) AdvReac Severe Nose Bleeds Verified 12/15/24 17:40 lisinopril AdvReac Intermediate Upset Verified 12/15/24 17:40 Stomach NASAL SPRAY AdvReac Intermediate Chest Uncoded [...] not use ROS Constitutional Constitutional: Denies anorexia, chills, fatigue or (more content not included)... Normal [facility] L501.4021on 12-15-2024 Trop T High Sen 15 ng/L Normal <=22 [facility] Comment on above: Performed By: #### L 501.4021, L100.0100 ####[facility] [address] [place], [address] Lipaseon 12-15-2024 Lipase [Catalytic activity/Vol] 12 U/L Low 13-75 [facility] Comment on above: Result Comment: Lucian kohli note: LIPASE revised reference range effective 22. New Lipase methodology. Expected to produce lower values than the previous assay method. NEW Reference Range: 13 - 75 U/L Performed By: #### L 503.7505, L501.2450, L500.4050 #### [facility] [address] [place], [address] Operative Reporton 5 Operative Report [facility] Medical Records Department [address] [place] [address] Operative Report 12/15/24 2317 MR#: [id number] Acct: [id number] Name: KIEL CATHERINE Rep #: [id number] : 1960 64 From: Raj Stevenson MD PCP: Dr. Alyson Arthur MD Status:[facility] Location: ICU ICU03-1 Operative Report (Standard) Operative Information Date of Procedure: 12/15/24 Pre-Operative Diagnosis: Perforated viscus Post-Operative Diagnosis: Perforated small bowel segment Surgery/Procedure Performed: Exploratory laparoscopy converted to open with resection of small bowel and anastomosis tank officer: Yes Grades 1 6 Tutor: Jeanette Salas Tasks completed by first aid nurse: Opening closing and Retracting Type of Anesthesia: General/Regional RN Documented Start/Stop Times: Operation Date: 12/15/24 21:15 Case Time Anesthesia Start 12/15/24 21:28 Into Room 12/15/24 21:28 Procedure Start 12/15/24 22:03 Procedure Start Time: 22:03 Procedure Stop Time: :25 Select all DRAINS/GRAFTS/IMPLANTS that apply: None Estimated Blood Loss: 50 Fluids Replaced: 800 Specimen collected: Yes Description of specimen(s) removed: Small bowel segment Description of surgery: Patient was brought to surgery and general anesthesia was induced. Zazueta catheter was placed into the bladder. Next the abdomen was prepped and draped in usual sterile fashion. A midline incision was made superior to the umbilicus and using Visiport technique the abdomen was entered. The abdomen is insufflated 15 mmHg and the camera was placed into the abdomen and there were no injuries from entry. There was copious purulence throughout the abdomen as well as peritonitis. The purulence was suctioned. It appeared to be originating from the upper abdomen. Under direct visualization a 5 mm port was placed in the left upper quadrant and right lower quadrants. Using atraumatic graspers the adhesions were broken down and the bowel was run. It appeared that there were several adhesions in the small bowel. The laparoscopic approach localized the area of the purpose I did not identify it laparoscopically so I decided to open. The midline incision was elongated superiorly and inferiorly and then electrocautery was used for hemostasis. The fascia was opened superiorly and inferiorly using electrocautery. Next the bowel was delivered through the incision and inspected. The perforation was identified and a piece of small bowel. It was clamped with a [place] and then the adhesions to the piece of bowel were taken down sharply. Once there was healthy bowel proximally and distally to the site of perforation resection was undertaken. Using JC stapler the proximal bowel was divided in the same faction the distal bowel was divided. Using LigaSure impact the mesentery was taken down and the specimen was sent for pathology with a suture marking the site of perforation. Next the small bowel segments were approximated and the corner of the staple lines were removed. JC stapler was used to make an anastomosis in a [id number]-pq-rgur functional end-to-end manner. The staple line was inspected and there was good hemostasis. Using a TX 60 stapler the enterostomy was closed. The staple line was inspected and there was good seal with no bleeding. There were a few areas in the mesentery that were still bleeding and these were stopped with 3-0 silk sutures. Next the bowel was returned to the abdomen and it was copiously irrigated and suctioned dry. Next the fascia was closed with a #1 PDS suture starting at the top and bottom meeting in the middle. The small incisions were closed with 4-0 Monocryl sutures. The midline incision was irrigated and suctioned. There was good hemostasis. The skin was reapproximated with skin maite. Bandages were applied. Patient was taken to the ICU in guarded condition intubated. Surgical Findings: Perforated loop of small bowel Complications Complications: No Admit VTE Documentation VTE Mechan Device Prophylaxis: SCD's 12/15/242321 Cosigner Signature (if applicable): CC: Dr. Raj Stevenson MD; Dr. Alyson Arthur MD Signed Normal [facility] Pro- Brain NATRIURETIC PEPTI Monica 12-15-2024 Natriuretic peptide B (Bld) [Mass/Vol] 120 pg/mL Normal <=900 [facility] Comment on above: Result Comment: Hear t Failure Unlikely: < 300 pg/mL Heart Failure Likely < 50 Years: > 450 pg/mL 50-75 Years: > 900 pg/mL >75 Years: > 1800 pg/mL Performed By: #### L 503.7505, L501.2450, L500.4050 #### [facility] [address] [place], [address] Troponin T HS 2 HRon 025 Trop T High Sen 16 ng/L Normal <=22 [facility] Comment on above: Performed By: #### L 499.0042 ####[facility] [address] [place], [address] Troponin T HS 4 HRon 025 Trop T High Sen Normal <=22 [facility] Comment on above: Result Comment: Kiko fernandez via OM: Ordered Performed By: #### L 499.0043 #### [facility] [address] [place], [address] Type AND Screenon 12-15-2024 ABO and Rh group Nom (Bld) Blood group O Rh(D) positive Normal [facility] Comment on above: Order Comment: Has p t arrived? YS Performed By: #### B TS ####[facility] [address] [place], [address] Urinalysis, Completeon 12-15 Mucus Ql (Urine sed) 1+ /hpf Normal [facility] Comment on above: Order Comment: WINNIE CTOR TO SPECIFY Performed By: #### L 400.0001 #### [facility] [address] [place], [address] WBC 0-5 SEEN Normal 0-5 [facility] Comment on above: Order Comment: WINNIE CTOR TO SPECIFY Performed By: #### L 400.0001 #### [facility] [address] [place], [address] BACTERIA 0 SEEN Normal None Seen [facility] Comment on above: Order Comment: WINNIE CTOR TO SPECIFY Performed By: #### L 400.0001 #### [facility] [address] [place], [address] EPI,SQUAMOUS 0 SEEN Normal 0-5 [facility] Comment on above: Order Comment: WINNIE CTOR TO SPECIFY Performed By: #### L 400.0001 #### [facility] [address] [place], [address] RBC 0 SEEN Normal 0-5 [facility] Comment on above: Order Comment: WINNIE CTOR TO SPECIFY Performed By: #### L 400.0001 #### [facility] [address] [place], [address] CNOVon 11-05-2024 CNOV Office Visit (ELOSWS ) -- KIEL CATHERINE ([id number]) 1960 M Date Time Provider Department 11/05/24 1:30 PM FRANKLIN ESPINAL During your visit today, we recorded the following information about you: Pulse Blood pressure 69/minute 119/74 Franklin Espinal, DO 11/05/2024 3:24 PM Signed [facility] [place] DEPARTMENT OF VASCULAR SURGERY OUTPATIENT VISIT DATE November 05, 2024 OUTPATIENT VISIT TYPE CONSULTATION SERVICE DATE: 11/05/2024 SERVICE TIME: 1:42 PM PRIMARY CARE PHYSICIAN: Alyson Arthur MD REFERRING PROVIDER: Angela Schmid [facility] [address] Consult requested for an opinion regarding the [...] Bicuspid aortic valve (HCC) Bipolar 1 disorder ([facility]) Chronic obstructive pulmonary disease (COPD) ([facility]) Coronary artery disease Degenerative disc disease sees Dr. Sellers Diabetic neuropathy ([facility]) DM (diabetes mellitus) ([facility]) HTN (hypertension) Hyperkalemia Hyperlipidemia Hypogonadism male LVH (left ventricular hypertrophy) Morbid obesity ([facility]) MANISH on CPAP Pain management Dr. [...] Disease Brother other (Myocardial infarc) Brother Fatal SC No Ocular Disease No Family History MEDICATIONS: [...] times a day. flash glucose scanning reader (Core2 Group ANAHI 2 READER) DMII, insulin requiring. Testing [...] NEEDLE) 31 (more content not included)... Normal [facility] PVR ANK PRESS SOY VAS LABon 10-30-2024 PVR ANK PRESS [facility]Y [facility] LAB Non-Invasive Vascular Laboratory [facility] Lower Extremity Arterial Physiology Study Bilateral/Complete [...] ankle: Normal at rest. Technologist: Krystyna Montalvo RVT Ordering physician: ANGELA SCHMID Interpreting physician: Sumit Johnston MD, BURT Final CC [employer] Image : [id number] See Link below for Image Normal [facility] US CAROTID ARTERIES [facility]Y [facility]AS LABon 10-30-2024 US CAROTID ARTERIES [facility] LAB Non-Invasive Vascular Laboratory [facility] Carotid Duplex Bilateral/Complete Date of service/time: [...] interpretation criteria are used as recommended by [employer]tersoci[employer] Accreditation Commission. Technically difficult exam due to [...] physician: Sumit Johnston MD, BURT Final CC [employer] : [id number] See Link below for Image Normal [facility] 09-27-2024 CNPN Telephone (VASSWS) -- KIEL CATHERINE ([id number]) 1960 M Date Time Provider Department 09/27/24 FRANKLIN ESPINAL VASSWS During your visit today, we recorded the [...] Date Reviewed: 09/09/2024 Reviewed by: Amauri Jo APRN.SEASONER HAND - Fully Assessed Reason for Visit: Appointment [...] a day. - flash glucose scanning reader (TappitSTYLE ANAHI 2 READER) DMII, insulin requiring. Testing [...] index (BM* (more content not included)... [facility]ARDPOB ) -- KIEL CATHERINE ([id number]) 1960 Date Time Provider Department 09/10/24 KATHY COLBERT During your visit today, we recorded the following information about you: Jhonathan Noni 09/10/2024 3:11 PM Signed Spouse, Shweta, contacted [facility] stating patient was received instructions from [facility] underground utility locator, Amauri Jo CNP, to follow up with a supervisor stitching department and possibly vascular specialist. Patient is wanting to continue cardiology care under Kathy Colbert CNP. Patient last saw Gemma 05/23/22. PSS notified patient that she is no longer at [place] but would send a message seeing if she is willing to see him or if he needs to establish with an MD. Please contact spouse to advise ph. [phone] . Philippe Singletary 09/11/2024 12:57 PM Signed LVM and scheduled overdue follow up for 12/17/24 at 3:[address] Valente in [place]. Thanks, Philippe Singletary Allergies As of Date: 09/10/2024 Noted Allergy Reaction IODINATED CONTRAST MEDIA 03/16/2023 8 - GI Upset 14 - Other: See Comments Comments: Hypotension, temporary SOB LISINOPRIL 12/01/2017 14 - Other: See Comments Comments: Hyperkalemia PENICILLINS 10/29/2010 2 - Rash FLONASE (FLUTICASONE PROPIONATE) 10/18/2021 14 - Other: See Comments Comments: Nose bleeds Date Reviewed: 09/09/2024 Reviewed by: Amauri Jo APRN.SEASONER HAND - Fully Assessed Reason for Visit: Appointment [...] 180 days. - flash glucose scanning reader (Core2 Group ANAHI 2 READER) DMII, insulin requiring. Testing [...] Guthrie Ma Problem List As Of Date 09/10/2024 Noted [...] wrist [M77. (more content not included)... Normal [facility] CNOVon 09-09-2024 CNOV Office Visit (PULMWS ) -- KIEL CATHERINE ([id number]) 1960 M Date Time Provider Department 09/09/24 11:00 AM AMAURI JO During your visit today, we recorded the following information about you: Pulse Respiration Blood pressure Weight 64/minute 16/minute 138/82 113.4 kg Height 1.549 m Amauri Jo APRN.SEASONER HAND 09/09/2024 12:44 PM Signed [facility] Lung Cancer Screening Annual Visit Current [...] other counseling during this visit. Amauri Jo APRN.[facility] -- History of Present Illness: Kiel [...] has not had a follow-up with a supervisor stitching department since the surgery due to a canceled appointment and difficulty scheduling. He denies dyspnea, hemoptysis, wheezing, or recent chest colds or infections. He reports occasional coughing, which he attributes to his smoking habit of approximately 3/4 pack per day. He notes that his breathing is not 100%, but considers it good for someone who smokes. He has not seen a underground utility locator since his surgery. He mentions a previous [...] Use Smokin (more content not included)... Normal [facility] CT LUNG SCREEN WO IVCONon CT LUNG SCREEN WO IVCON * * *Final Report* * * DATE OF EXAM: Sep 09 2024 10:38AM [facility] 0562 - CT LUNG SCREEN WO IVCON [...] without contrast. MQ: CTLCS_6 Patient characteristics: * Kydz-yt-Jtacw: 1960; Age at exam: 63 years * Gender: Male * Lung Disease: Asymptomatic (no signs or symptoms of lung disease) * Number of Pack Years: 34 * Current smoker (=0) or Number of Years since Quit: 0 * Ordering provider and NPI: TONY MAJANO [id number] * Interpreting radiologist and NPI: Elmer [id number] Exam acquisition parameters: * Exam Date: 09/09/2024 10:38 AM * Site: [facility] * * CT System Home Fire Alarm Installer: Siemens * CT System Model: Sensation * [...] screening with LDCT in 12 months. Reference: [employer]. Lung CT Screening Reporting and Data System (Lung-RADS). Available at: http://www.acr.org/Quality -Safety/Resources/LungRADS Multi Disciplined Language Analyst: TOMMY Transcribe Date/Time: Sep 10 2024 11:00A Dictated by : RICHARD BRYSON MD This examination was interpreted and the report reviewed and electronically signed by: RICHARD BRYSON MD on Sep 10 2024 11:19AM EST [id number] Normal [facility] [id number] 08-26-2024 [facility] Misc. Normal [facility] Comment on above: Order Comment: 13237 URINE TOX RT Result Comment: TEST RESULTS LIMITS [id number] 9 Drug-Unb Amphetamines, Urine Negative ng/mL Kgtnaf=2182 Amphetamine test includes Amphetamine and Methamphetamine. Barbiturate Negative ng/mL Ipaqrx=415 Benzodiazepines Negative ng/mL Tcpvex=020 Cannabinoid Negative ng/mL Xdaway=854 Cocaine (Metab.) Negative ng/mL Vpnjte=785 Opiates Negative ng/mL Hprqvu=889 Opiate test includes Codeine and Morphine only. Phencyclidine Negative ng/mL Cutoff=25 Methadone Screen, Urine Negative ng/mL Amgacm=520 Propoxyphene, Urine Negative ng/mL Szahso=670 [facility] ORIGINAL REPORT ON FILE IN LAB CONTAINS ADDITIONAL TEST SITE INFORMATION. Performed By: #### L 505.5000, L3410.9992 ####[facility] [address] [place], [place], [id number] Amphetamine detection with 1 000 ng/mL as cutoffOrdered By: Walter Sellers on 08-21-2024 Amphetamines Screen method >1000 ng/mL Ql (U) Negative < 200 ng/mL [facility] No Panel InformationOrdered By: Walter Sellers on 08-21-2024 Urine Buprenorphine Qualitative Negative < 200 ng/mL [facility] Urine Oxycodone Screen Positive < 100 ng/mL [facility] Comment on above: If confirmation test ing is needed, a separate order will be required to send out testing to the reference laboratory. Quantitative urine opiates m easurementOrdered By: Walter Sellers on 08-21-2024 Opiates Ql (U) Negative < 300 ng/mL [facility] Screening urine fentanyl kenneth surementOrdered By: Walter Sellers on 08-21-2024 fentaNYL Screen Ql (U) Negative [facility] Urine Drug Screen (VISTA)on 08-21-2024 AMPHETAMINES Negative Normal <1000 ng/mL [facility] Comment on above: Order Comment: UNK Performed By: #### L 505.5000, L3410.9992 ####[facility] [address] [facility] [address] BARBITIURATES Negative Normal < 200 ng/mL [facility] Comment on above: Order Comment: UNK Performed By: #### L 505.5000, L3410.9992 ####[facility] [address] [facility] [address] BENZODIAZIPINE Negative Normal < 200 ng/mL [facility] Comment on above: Order Comment: UNK Performed By: #### L 505.5000, L3410.9992 ####[facility] [address] [facility] [address] BUP Ur Drug Scr Negative Normal < 200 ng/mL [facility] Comment on above: Order Comment: UNK Performed By: #### L 505.5000, L3410.9992 ####[facility] [address] [facility] [address] COCAINE Negative Normal < 300 ng/mL [facility] Comment on above: Order Comment: UNK Performed By: #### L 505.5000, L3410.9992 ####[facility] [address] [place], [address] Fentanyl Negative Normal [facility] Comment on above: Order Comment: UNK Performed By: #### L 505.5000, L3410.9992 ####[facility] [address] [place], [address] METHADONE Negative Normal < 300 ng/mL [facility] Comment on above: Order Comment: UNK Performed By: #### L 505.5000, L3410.9992 ####[facility] [address] [facility] [address] OPIATES Negative Normal < 300 ng/mL [facility] Comment on above: Order Comment: UNK Performed By: #### L 505.5000, L3410.9992 ####[facility] [address] [place] [address] OXYCODONE Positive Normal < 100 ng/mL [facility] Comment on above: Order Comment: UNK Result Comment: If c onfirmation testing is needed, a separate order will be required to send out testing to the reference laboratory. Performed By: #### L 505.5000, L3410.9992 ####[facility] [address] [place], [address] PCP Negative Normal < 25 ng/mL [facility] Comment on above: Order Comment: UNK Performed By: #### L 505.5000, L3410.9992 ####[facility] [address] [place] [address] THC Negative Normal < 50 ng/mL [facility] Comment on above: Order Comment: UNK Performed By: #### L 505.5000, L3410.9992 ####[facility] [address] [place], [address] Urine benzodiazepine levelOr dered By: Walter Sellers on 08-21-2024 Benzodiazepines Ql (U) Negative < 200 ng/mL [facility] Urine cocaine levelOrdered B y: Walter Almendarezleola on 08-21-2024 Cocaine Ql (U) Negative < 300 ng/mL [facility] Urine nrkvo-8-geiwjwyqankjpj abinol (THC) measurementOrdered By: Walter Almendarezleola on 08-21-2024 Cannabinoids Screen Ql (U) Negative < 50 ng/mL [facility] Urine phencyclidine (PCP) de tectionOrdered By: Walter Almendarezi on 08-21-2024 Phencyclidine Ql (U) Negative < 25 ng/mL [facility] CNPNon 08-13-2024 [facility] Telephone (INTMWS) -- KIEL CATHERINE ([id number]) 1960 Date Time Provider Department 08/13/24 ALYSON ARTHUR INTWS During your visit today, we recorded the following information about you: Conchita Diaz LPN 08/13/2024 2:49 PM Signed Covermymeds [place] rec'd for ciprofloxacin-dexAMETHason e (CIPRODEX) 0.3-0.1 % otic suspension Called the pharmacy and they report that this is not formulary. They report pts insurance would covered cortisporin otic suspension. Can this be changed to formulary? Angela Schmid APRN.SEASONER HAND 08/13/2024 4:43 PM Signed That is fine. [...] mLRfl: 0 Prescriptions as of 08/13/2024 - qnhdorsk-ctluggbun-ixexiwu rtisone (CORTISPORIN) 3.5-10,000-1 mg/mL-unit/mL-% otic suspension Use [...] 180 days. - flash glucose scanning reader (Core2 Group ANAHI 2 READER) DMII, insulin requiring. Testing [...] LVH (left (more content not included)... Normal [facility] Comprehensive metabolic 2000 panelon 08-08-2024 Albumin [Mass/Vol] 4 g/dL 3.9 - 4.9 g/dL [facility] ALP [Catalytic activity/Vol] 119 U/L High 38 - 113 U/L [facility] ALT [Catalytic activity/Vol] 12 U/L 10 - 54 U/L [facility] Anion gap [Moles/Vol] 13 mmol/L 8 - 15 mmol/L [facility] AST [Catalytic activity/Vol] 14 U/L 14 - 40 U/L [facility] Bilirubin [Mass/Vol] 0.5 mg/dL 0.2 - 1 .3 mg/dL [facility] Calcium [Mass/Vol] 9.2 mg/dL 8.5 - 10. 2 mg/dL [facility] Chloride [Moles/Vol] 102 mmol/L 98 - 10 7 mmol/L [facility] CO2 [Moles/Vol] 25 mmol/L 22 - 30 mmol/L [facility] Creatinine [Mass/Vol] 0.8 mg/dL 0.73 - 1.22 mg/dL [facility] GFR/1.73 sq M.predicted among non-blacks MDRD (S/P/Bld) [Vol rate/Area] 100 mL/min/{1.73_m2} - PINF [facility] Comment on above: Estimated Glomerular Filtration [...] 190 mg/dL High 74 - 99 mg/dL [facility] Comment on above: The [place] Diabete s Association (ADA) provides guidance for [...] Standards of Medical Care in Diabetes 2016, [place] [employer]. Diabetes Care. 2016.39(Suppl 1). Potassium [Moles/Vol] 4.5 mmol/L 3.7 - 5.1 mmol/L [facility] Protein [Mass/Vol] 6.7 g/dL 6.3 - 8.0 g/dL [facility] Sodium [Moles/Vol] 140 mmol/L 136 - 144 mmol/L [facility] Urea nitrogen [Mass/Vol] 20 mg/dL 9 - 24 mg/dL [facility] Lipid 1996 panelon 5 Cholesterol [Mass/Vol] 136 mg/dL NINF - 200 mg/dL [facility] Comment on above: <200 mg/dL, Desirabl e 200-239 mg/dL, Borderline high >239 mg/dL, High Cholesterol in HDL [Mass/Vol] 33 mg/dL Low 39 - PINF mg/dL [facility] Comment on above: 40-59 mg/dL, Accepta ble >59 mg/dL, High: Negative risk factor for coronary heart disease <40 mg/dL, Low: Positive risk factor for coronary heart disease Cholesterol in LDL [Mass/Vol] 76 mg/dL NINF - 100 mg/dL [facility] Comment on above: <100 mg/dL, Optimal 100-129 mg/dL, Near optimal/above optimal 130-159 mg/dL, Borderline high 160-189 mg/dL, High >189 mg/dL, Very high Secondary prevention optimal LDL Cholesterol levels are recommended to be <70 mg/dL LDL cholesterol is calculated using the Wright-NIH equation. Cholesterol in LDL/Cholesterol in HDL [Mass ratio] 2.3 {ratio} NINF - 2.54 [facility] Comment on above: Reference: 1. National Cholesterol Education Program ATP III Guideline At-A-Glance Quick Desk Reference: National Heart, Lung, and Blood [place]. National Institutes of Health. 2001: NIH Publication No. 01-3305. 2. An International Atherosclerosis Society position paper: global recommendations for the management of dyslipidemia: executive summary, Atherosclerosis. 2014: 232(2):410-413. Cholesterol in VLDL [Mass/Vol] 24 mg/dL NINF - 30 mg/dL [facility] Cholesterol non HDL [Mass/Vol] 103 mg/dL NINF - 130 mg/dL [facility] Comment on above: <130 mg/dL, Optimal 130-159 mg/dL, Near optimal/above optimal 160-189 mg/dL, Borderline high 190-219 mg/dL, High >219 mg/dL, Very high Secondary prevention optimal non HDL Cholesterol levels are recommended to be <100 mg/dL Cholesterol.total/Chol esterol in HDL [Mass ratio] 4.12 {ratio} NINF - 5.10 [facility] Fasting Time 12 hrs [facility] Triglyceride [Mass/Vol] 157 mg/dL High NINF - 150 mg/dL [facility] Comment on above: <150 mg/dL, Normal 150-199 mg/dL, Borderline high 200-499 mg/dL, High >499 mg/dL, Very high No Panel Informationon 08-08 Interpretation and review of laboratory results Abnormal [facility] PSA/PROSTATE SPECIFIC ANTIGE N SCREENINGon 08-08-2024 Interpretation and review of laboratory results Normal [facility] Prostate specific Ag [Mass/Vol] 0.16 ng/mL NINF - 2.60 ng/mL [facility] Comment on above: Total PSA test metho dology used is the Electrochemiluminescence Immunoassay by [employer]. Total PSA values by differing methodologies cannot be interchanged. [facility] CBC W Auto Differential pane l (Bld)on 08-07-2024 Basophils (Bld) [#/Vol] 0.07 10*3/uL [facility] Basophils/100 WBC (Bld) 0.7 % [facility] Differential cell count method Nom (Bld) Auto [facility] Eosinophils (Bld) [#/Vol] 0.08 10*3/uL [facility] Eosinophils/100 WBC (Bld) 0.8 % [facility] Erythrocyte distribution width (RBC) [Ratio] 12.6 % 11.5 - 15.0 % [facility] Hematocrit (Bld) [Volume fraction] 49.7 % 39.0 - 51.0 % [facility] Hemoglobin (Bld) [Mass/Vol] 16.7 g/dL 13.0 - 17.0 g/dL [facility] Immature granulocytes (Bld) [#/Vol] 0.05 10*3/uL [facility] Immature granulocytes/100 WBC (Bld) 0.5 % [facility] Interpretation and review of laboratory results Abnormal [facility] Lymphocytes (Bld) [#/Vol] 1.81 10*3/uL [facility] Lymphocytes/100 WBC (Bld) 17.1 % [facility] MCH (RBC) [Entitic mass] 30 pg 26.0 - 34.0 pg [facility] MCHC (RBC) [Mass/Vol] 33.6 g/dL 30.5 - 36.0 g/dL [facility] MCV (RBC) [Entitic vol] 89.2 fL 80.0 - 100.0 fL [facility] Monocytes (Bld) [#/Vol] 0.83 10*3/uL NINF [facility] Monocytes/100 WBC (Bld) 7.9 % [facility] Neutrophils (Bld) [#/Vol] 7.72 10*3/uL High [facility] Neutrophils/100 WBC (Bld) 73 % [facility] Nucleated RBC (Bld) [#/Vol] [facility] Nucleated RBC/100 WBC (Bld) [Ratio] 0 % /100 WBC [facility] Platelet mean volume (Bld) [Entitic vol] 12.4 fL 9.0 - 12.7 fL [facility] Platelets (Bld) [#/Vol] 189 10*3/uL [facility] RBC (Bld) [#/Vol] 5.57 10*6/uL 4.20 - 6.00 m/uL [facility] WBC (Bld) [#/Vol] 10.56 10*3/uL [facility] Basophils (Bld) [#/Vol] 0.07 10*3/uL Normal <0.11 [facility] Comment on above: Order Comment: Speci men Type: BLOOD SPECIMENOrdering Facility: [facility] Address: [address] [place], [place] [address] Performed By: #### 5 7021-8 ####[facility] LABCLIA [id number] [facility] [place] [address] [place] Basophils/100 WBC (Bld) 0.7 % Normal [facility] Comment on above: Order Comment: Speci men Type: BLOOD SPECIMENOrdering Facility: [facility] Address: [address] [place] [address] Performed By: #### 5 7021-8 ####[facility] LABCLIA [id number] [address] [place] [address] [place] Differential cell count method Nom (Bld) Auto Normal [facility] Comment on above: Order Comment: Speci men Type: BLOOD SPECIMENOrdering Facility: [facility] Address: [address] [place] [address] Performed By: #### 5 7021-8 ####[facility] LABCLIA [id number] [facility] [address], [place] [address] [place] Eosinophils (Bld) [#/Vol] 0.08 10*3/uL Normal <0.46 [facility] Comment on above: Order Comment: Speci men Type: BLOOD SPECIMENOrdering Facility: [facility] Address: [address] [place] [address] Performed By: #### 5 7021-8 ####[facility] LABCLIA [id number] [facility] [address], [facility] [place] Eosinophils/100 WBC (Bld) 0.8 % Normal [facility] Comment on above: Order Comment: Speci men Type: BLOOD SPECIMENOrdering Facility: [facility] Address: [address] [place] [address] Performed By: #### 5 7021-8 ####[facility] LABCLIA [id number] [facility] [address] [place] [address] [place] Erythrocyte distribution width (RBC) [Ratio] 12.6 % Normal 11.5-15.0 [facility] Comment on above: Order Comment: Speci men Type: BLOOD SPECIMENOrdering Facility: [facility] Address: [address] [place] [address] Performed By: #### 5 7021-8 ####[facility] LABCLIA [id number] [place] [address] [place] Hematocrit (Bld) [Volume fraction] 49.7 % Normal 39.0-51.0 [facility] Comment on above: Order Comment: Speci men Type: BLOOD SPECIMENOrdering Facility: [facility] Address: [address] [place] [address] Performed By: #### 5 7021-8 ####[facility] LABCLIA [id number] [place] [address] [place] Hemoglobin (Bld) [Mass/Vol] 16.7 g/dL Normal 13.0-17.0 [facility] Comment on above: Order Comment: Speci men Type: BLOOD SPECIMENOrdering Facility: [facility] Address: [address] [place] [address] Performed By: #### 5 7021-8 ####[facility] LABCLIA [id number] [place] [address] [place] Immature granulocytes (Bld) [#/Vol] 0.05 10*3/uL Normal <0.10 [facility] Comment on above: Order Comment: Speci men Type: BLOOD SPECIMENOrdering Facility: [facility] Address: [address] [place] [address] Performed By: #### 5 7021-8 ####[facility] LABCLIA [id number] [place] [address] [place] Immature granulocytes/100 WBC (Bld) 0.5 % Normal [facility] Comment on above: Order Comment: Speci men Type: BLOOD SPECIMENOrdering Facility: [facility] Address: [address] [place] [address] Performed By: #### 5 7021-8 ####[facility] LABCLIA [id number] [place] [address] [place] Lymphocytes (Bld) [#/Vol] 1.81 10*3/uL Normal 1.00-4.00 [facility] Comment on above: Order Comment: Speci men Type: BLOOD SPECIMENOrdering Facility: [facility] Address: [address] [place] [address] Performed By: #### 5 7021-8 ####[facility] LABCLIA [id number] [place] [address] [place] Lymphocytes/100 WBC (Bld) 17.1 % Normal [facility] Comment on above: Order Comment: Speci men Type: BLOOD SPECIMENOrdering Facility: [facility] Address: [address] [place] [address] Performed By: #### 5 7021-8 ####[facility] LABIA [id number] [place] [address] [place] MCH (RBC) [Entitic mass] 30.0 pg Normal 26.0-34.0 [facility] Comment on above: Order Comment: Speci men Type: BLOOD SPECIMENOrdering Facility: [facility] Address: [address] [place] [address] Performed By: #### 5 7021-8 ####[facility] LABIA [id number] [place] [address] [place] MCHC (RBC) [Mass/Vol] 33.6 g/dL Normal 30.5-36.0 [facility] Comment on above: Order Comment: Speci men Type: BLOOD SPECIMENOrdering Facility: [facility] Address: [address] [place] [address] Performed By: #### 5 7021-8 ####[facility] LABCLIA [id number] [place] [address] [place] MCV (RBC) [Entitic vol] 89.2 fL Normal 80.0-100.0 [facility] Comment on above: Order Comment: Speci men Type: BLOOD SPECIMENOrdering Facility: [facility] Address: [address] [place] [address] Performed By: #### 5 7021-8 ####[facility] LABCLIA [id number] [place] [id number] [place] Monocytes (Bld) [#/Vol] 0.83 10*3/uL Normal <0.87 [facility] Comment on above: Order Comment: Speci men Type: BLOOD SPECIMENOrdering Facility: [facility] Address: [address] [place] [address] Performed By: #### 5 7021-8 ####[facility] LABCLIA [id number] [place] [address] [place] Monocytes/100 WBC (Bld) 7.9 % Normal [facility] Comment on above: Order Comment: Speci men Type: BLOOD SPECIMENOrdering Facility: [facility] Address: [address] [place] [address] Performed By: #### 5 7021-8 ####[facility] LABCLIA [id number] [place] [address] [place] Neutrophils (Bld) [#/Vol] 7.72 10*3/uL High 1.45-7.50 [facility] Comment on above: Order Comment: Speci men Type: BLOOD SPECIMENOrdering Facility: [facility] Address: [address] [place] [address] Performed By: #### 5 7021-8 ####[facility] LABCLIA [id number] [place] [address] [place] Neutrophils/100 WBC (Bld) 73.0 % Normal [facility] Comment on above: Order Comment: Speci men Type: BLOOD SPECIMENOrdering Facility: [facility] Address: [address] [place] [address] Performed By: #### 5 7021-8 ####[facility] LABCLIA [id number] [address] [place] [address] [place] Nucleated RBC (Bld) [#/Vol] 10*3/uL Normal <0.01 [facility] Comment on above: Order Comment: Speci men Type: BLOOD SPECIMENOrdering Facility: [facility] Address: [address] [place] [address] Performed By: #### 5 7021-8 ####[facility] LABCLIA [id number] [facility] [address], [place] [address] [place] Nucleated RBC/100 WBC (Bld) [Ratio] 0.0 /100 WBC Normal [facility] Comment on above: Order Comment: Speci men Type: BLOOD SPECIMENOrdering Facility: [facility] Address: [address] [place] [address] Performed By: #### 5 7021-8 ####[facility] LABIA [id number] [address], [place] [address] [place] Platelet mean volume (Bld) [Entitic vol] 12.4 fL Normal 9.0-12.7 [facility] Comment on above: Order Comment: Speci men Type: BLOOD SPECIMENOrdering Facility: [facility] Address: [address] [place] [address] Performed By: #### 5 7021-8 ####[facility] LABCLIA [id number] [address], [place] [address] [place] Platelets (Bld) [#/Vol] 189 10*3/uL Normal 150-400 [facility] Comment on above: Order Comment: Speci men Type: BLOOD SPECIMENOrdering Facility: [facility] Address: [address] [place] [address] Performed By: #### 5 7021-8 ####[facility] LABCLIA [id number] [address], [facility]95 [place] RBC (Bld) [#/Vol] 5.57 10*6/uL Normal 4.20-6.00 [facility] Comment on above: Order Comment: Speci men Type: BLOOD SPECIMENOrdering Facility: [facility] Address: [address] [place] [address] Performed By: #### 5 7021-8 ####[facility] LABCLIA [id number] [place] [address] [place] WBC (Bld) [#/Vol] 10.56 10*3/uL Normal 3.70-11.00 [facility] Comment on above: Order Comment: Speci men Type: BLOOD SPECIMENOrdering Facility: [facility] Address: [address] [place] [address] Performed By: #### 5 7021-8 ####[facility] LABCLIA [id number] [address] [place] CNOVon 08-07-2024 [facility] -- KIEL CATHERINE ([id number]) 1960 M Date Time Provider Department 08/07/24 9:20 AM ANGELA SCHMID [facility] During your visit today, we recorded the following information about you: Pulse Respiration Blood pressure 59/minute 16/minute 133/73 Angela Schmid APRN.[employer] 08/07/2024 11:25 AM Addendum Start the ear [...] feet. 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 Ear Discomfort: - Reports feeling of swelling [...] at bedtime (more content not included)... Normal [facility] Comprehensive metabolic 2000 panelon 08-07-2024 Albumin [Mass/Vol] 4.0 g/dL Normal 3.9-4.9 [facility] Comment on above: Order Comment: Speci men Type: BLOOD SPECIMENOrdering Facility: [facility] Address: [address] [place] [id number] Performed By: #### 2 4323-8, 57524-2 ####[facility] LABCLIA [id number] [place] [id number] [place] ALP [Catalytic activity/Vol] 119 U/L High 38-113 [facility] Comment on above: Order Comment: Speci men Type: BLOOD SPECIMENOrdering Facility: [facility] Address: [address] [place], [place] [address] Performed By: #### 2 4323-8, 53131-0 ####[facility] LABCLIA [id number] [place] [address] [place] ALT [Catalytic activity/Vol] 12 U/L Normal 10-54 [facility] Comment on above: Order Comment: Speci men Type: BLOOD SPECIMENOrdering Facility: [facility] Address: [address] [place], [place] [address] Performed By: #### 2 4323-8, 36204-0 ####[facility] LABIA [id number] [place] [address] [place] Anion gap [Moles/Vol] 13 mmol/L Normal 8-15 [facility] Comment on above: Order Comment: Speci men Type: BLOOD SPECIMENOrdering Facility: [facility] Address: [address] [place], [place] [address] Performed By: #### 2 4323-8, 29281-4 ####[facility] LABIA [id number] [place] [id number] [place] AST [Catalytic activity/Vol] 14 U/L Normal 14-40 [facility] Comment on above: Order Comment: Speci men Type: BLOOD SPECIMENOrdering Facility: [facility] Address: [address] [place], [place] [address] Performed By: #### 2 4323-8, 57509-6 ####[facility] LABCLIA [id number] [address] [address] [place] Bilirubin [Mass/Vol] 0.5 mg/dL Normal 0.2-1.3 [facility] Comment on above: Order Comment: Speci men Type: BLOOD SPECIMENOrdering Facility: [facility] Address: [address] [place], [place] [address] Performed By: #### 2 4323-8, 57388-8 ####[facility] LABCLIA [id number] [address] [address] [place] Calcium [Mass/Vol] 9.2 mg/dL Normal 8.5-10.2 [facility] Comment on above: Order Comment: Speci men Type: BLOOD SPECIMENOrdering Facility: [facility] Address: [address] [place] [address] Performed By: #### 2 4323-8, ####[facility] LABCLIA [id number] [place] [id number] [place] Chloride [Moles/Vol] 102 mmol/L Normal 98-107 [facility] Comment on above: Order Comment: Speci men Type: BLOOD SPECIMENOrdering Facility: [facility] Address: [address] [place], [place] [address] Performed By: #### 2 4323-8, ####[facility] LABCLIA [id number] [place] [id number] [place] CO2 [Moles/Vol] 25 mmol/L Normal 22-30 [facility] Comment on above: Order Comment: Speci men Type: BLOOD SPECIMENOrdering Facility: [facility] Address: [address] [place], [place] [address] Performed By: #### 2 4323-8, 59620-3 ####[facility] LABCLIA [id number] [address] [address] [place] Creatinine [Mass/Vol] 0.80 mg/dL Normal 0.73-1.22 [facility] Comment on above: Order Comment: Sylvia odyle Type: BLOOD SPECIMENOrdering Facility: [facility] Address: [address] [place] [address] Performed By: #### 2 4323-8, 82281-4 ####[facility] LABCLIA [id number] [place] [address] [place] Creatinine and Glomerular filtration rate.predicted panel (S/P/Bld) 100 mL/min/1.73m??? Normal >=60 [facility] Comment on above: Order Comment: Sylvia doyle Type: BLOOD SPECIMENOrdering Facility: [facility] Address: [address] [place] [address] Result Comment: Stephanie mated Glomerular Filtration Rate [...] actual GFR. Performed By: #### 2 4323-8, 76973-3 ####[facility] LABCLIA [id number] [place] [address] [place] Glucose [Mass/Vol] 190 mg/dL High 74-99 [facility] Comment on above: Order Comment: Sylvia doyle Type: BLOOD SPECIMENOrdering Facility: [facility] Address: [address] [place] [address] Result Comment: The [place] Diabetes Association (ADA) provides guidance for cutoff [...] Standards of Medical Care in Diabetes 2016, [place] [employer] Association. Diabetes Care. 2016.39(Suppl 1). Performed By: #### 2 4323-8, 07800-1 ####[facility] LABCLIA [id number] [address] [address] [place] Potassium [Moles/Vol] 4.5 mmol/L Normal 3.7-5.1 [facility] Comment on above: Order Comment: Speci men Type: BLOOD SPECIMENOrdering Facility: [facility] Address: [address] [place] [address] Performed By: #### 2 4323-8, 55555-8 ####[facility] LABIA [id number] [place] [id number] [place] Protein [Mass/Vol] 6.7 g/dL Normal 6.3-8.0 [facility] Comment on above: Order Comment: Speci men Type: BLOOD SPECIMENOrdering Facility: [facility] Address: [address] [place] [address] Performed By: #### 2 4323-8, ####[facility] LABIA [id number] [place] [id number] [place] Sodium [Moles/Vol] 140 mmol/L Normal 136-144 [facility] Comment on above: Order Comment: Speci men Type: BLOOD SPECIMENOrdering Facility: [facility] Address: [address] [place] [id number] Performed By: #### 2 4323-8, 46995-4 ####[facility] LABIA [id number] [place] [id number] [place] Urea nitrogen [Mass/Vol] 20 mg/dL Normal 9-24 [facility] Comment on above: Order Comment: Speci men Type: BLOOD SPECIMENOrdering Facility: [facility] Address: [address] [place] [id number] Performed By: #### 2 4323-8, 94955-5 ####[facility] LABIA [id number] [place] [id number] [facility] HbA1c (Bld)on 08-07-2024 Average glucose Estimated from glycated hemoglobin (Bld) [Mass/Vol] 186 mg/dL Normal [facility] Comment on above: Order Comment: Sylvia doyle Type: BLOOD SPECIMENOrdering Facility: [facility] Address: [address] [place] [address] Result Comment: eAG: (Estimated average glucose) is a calculated value from HgbA1c and is c s s representative of the average blood glucose level in the last 2-3 month period. Performed By: #### 5 5454-3 ####[facility] LABIA [id number] [address] OF [facility] HbA1c (Bld) [Mass fraction] 8.1 % High 4.3-5.6 [facility] Comment on above: Order Comment: Sylvia doyle Type: BLOOD SPECIMENOrdering Facility: [facility] Address: [address] [place] [address] Result Comment: [place] Diabetes Association guidelines indicate that patients with HgbA1c in the range 5.7-6.4% are at increased risk for development of diabetes, and intervention by lifestyle modification may be beneficial. HgbA1c greater or equal to 6.5% is considered diagnostic of diabetes. Performed By: #### 5 5454-3 ####[facility] LABIA [id number] [address] [address] [facility] Lipid 1996 panelon 5 Cholesterol [Mass/Vol] 136 mg/dL Normal <200 [facility] Comment on above: Order Comment: Sylvia doyle Type: BLOOD SPECIMENOrdering Facility: [facility] Address: [address] [place] [address] Result Comment: <200 mg/dL, Desirable 200-239 mg/dL, Borderline high >239 mg/dL, High Performed By: #### 2 4323-8, 95981-9 ####[facility] LABCLIA [id number] [address] OF [facility] Cholesterol in HDL [Mass/Vol] 33 mg/dL Low >39 [facility] Comment on above: Order Comment: Breannei men Type: BLOOD SPECIMENOrdering Facility: [facility] Address: [address] [place] [address] Result Comment: 40-5 9 mg/dL, Acceptable >59 mg/dL, High: Negative risk factor for coronary heart disease <40 mg/dL, Low: Positive risk factor for coronary heart disease Performed By: #### 2 4323-8, 67735-2 ####[facility] LABCLIA [id number] [address] Cholesterol in LDL [Mass/Vol] 76 mg/dL Normal <100 [facility] Comment on above: Order Comment: Breannei men Type: BLOOD SPECIMENOrdering Facility: [facility] Address: [address] [place] [address] Result Comment: <100 mg/dL, Optimal 100-129 mg/dL, Near optimal/above optimal 130-159 mg/dL, Borderline high 160-189 mg/dL, High >189 mg/dL, Very high Secondary prevention optimal LDL Cholesterol levels are recommended to be <70 mg/dL LDL cholesterol is calculated using the Wright-NIH equation. Performed By: #### 2 4323-8, 42781-0 ####[facility] LABCLIA [id number] [address] OF [facility] Cholesterol in LDL/Cholesterol in HDL [Mass ratio] 2.30 {ratio} Normal <2.54 [facility] Comment on above: Order Comment: Speci men Type: BLOOD SPECIMENOrdering Facility: [facility] Address: [address] [place] [address] Result Comment: Refe rence: 1. National Cholesterol Education Program ATP III Guideline At-A-Glance Quick Desk Reference: National Heart, Lung, and Blood [place]. National Institutes of Health. 2001: NIH Publication No. 01-3305. 2. An International Atherosclerosis Society position paper: global recommendations for the management of dyslipidemia: executive summary, Atherosclerosis. 2014: 232(2):410-413. Performed By: #### 2 4323-8, 37561-3 ####[facility] LABCLIA [id number] [facility] [address] [place] [address] [place] Cholesterol in VLDL [Mass/Vol] 24 mg/dL Normal <30 [facility] Comment on above: Order Comment: Breannei men Type: BLOOD SPECIMENOrdering Facility: [facility] Address: [address] [place] [address] Performed By: #### 2 432-8, ####[facility] LABCLIA [id number] [address] [place] [address] [place] Cholesterol non HDL [Mass/Vol] 103 mg/dL Normal <130 [facility] Comment on above: Order Comment: Sylvia doyle Type: BLOOD SPECIMENOrdering Facility: [facility] Address: [address] [place] [address] Result Comment: <130 mg/dL, Optimal 130-159 mg/dL, Near optimal/above optimal 160-189 mg/dL, Borderline high 190-219 mg/dL, High >219 mg/dL, Very high Secondary prevention optimal non HDL Cholesterol levels are recommended to be <100 mg/dL Performed By: #### 2 432-8, ####[facility] LABCLIA [id number] [facility] [address] [place] [address] [place] Cholesterol.total/Chol esterol in HDL [Mass ratio] 4.12 {ratio} Normal <5.10 [facility] Comment on above: Order Comment: Sylvia men Type: BLOOD SPECIMENOrdering Facility: [facility] Address: [address] [place] [id number] Performed By: #### 2 4323-8, ####[facility] LABCLIA [id number] [facility] [address] [place] [address] [place] FASTING TIME 12 hrs Normal [facility] Comment on above: Order Comment: Speci men Type: BLOOD SPECIMENOrdering Facility: [facility] Address: [address] [place] [address] Performed By: #### 2 4323-8, 13069-3 ####[facility] LABCLIA [id number] [place] [id number] [place] Triglyceride [Mass/Vol] 157 mg/dL High <150 [facility] Comment on above: Order Comment: Speci men Type: BLOOD SPECIMENOrdering Facility: [facility] Address: [address] [place] [address] Result Comment: <150 mg/dL, Normal 150-199 mg/dL, Borderline high 200-499 mg/dL, High >499 mg/dL, Very high Performed By: #### 2 4323-8, 31859-8 ####[facility] [facility] LABCLIA [id number] [place] [address] [place] PSA/PROSTATE SPECIFIC ANTIGE N SCREENINGon 08-07-2024 Prostate specific Ag [Mass/Vol] 0.16 ng/mL Normal <2.60 [facility] Comment on above: Order Comment: Speci men Type: BLOOD SPECIMENOrdering Facility: [facility] Address: [address] [place] [address] Result Comment: Tota l PSA test methodology used is the Electrochemiluminescence Immunoassay by [employer]. Total PSA values by differing methodologies cannot be interchanged. Performed By: #### P SAS1 ####[facility] LABCLIA [id number] [place] [address] [place] L3410.9992on 07-30-2024 [facility] Misc. COMMENT Normal . [facility] Comment on above: Order Comment: 24040 0 PAIN MANAGEMNT Result Comment: Test Ordered: [id number] [id number]+SV2 Amphetamines Screen, Urine Negative ng/mL UI Reference Range: Chpxen=315 Amphetamine test includes Amphetamine and Methamphetamine. Barbiturates Negative ng/mL UI Reference Range: Tjvlfv=210 Benzodiazepines Negative ng/mL UI Reference Range: Xauwfd=959 Cocaine (Metab.), Urine Negative ng/mL UI Reference Range: Eeykhs=306 Opiates Note: ng/mL UI See Final Results Reference Range: Uuiefu=554 Opiate test includes Codeine, Morphine, Hydromorphone, Hydrocodone. Opiates Positive [A ] UI Reference Range: Rkpfmw=775 Opiate test includes Codeine, Morphine, Hydromorphone, Hydrocodone. Codeine Negative UI Reference Range: Nwrlpv=128 Morphine Negative UI Reference Range: Fesxmb=154 Hydromorphone Negative UI Reference Range: Hnwniu=711 Hydrocodone Positive [A ] UI Reference Range: . Hydrocodone Conf, MS, UR 303 ng/mL UI Reference Range: Xapzfz=286 6-Acetylmorphine, Urine Negative ng/mL UI Reference Range: Cutoff=10 Oxycodone/Oxymorphone, Urine Negative ng/mL UI Reference Range: Evyjsq=850 Test includes Oxycodone and Oxymorphone PCP, Urine Negative ng/mL UI Reference Range: Cutoff=25 Methadone Screen, Urine Negative ng/mL UI Reference Range: Lxmzjn=305 Propoxyphene, Urine Negative ng/mL UI Reference Range: Mklelg=605 Fentanyl, Urine Negative ng/mL UI Reference Range: Cutoff=2.0 Test includes Fentanyl and Norfentanyl This test was developed and its performance characteristics determined by [facility]. It has not been cleared or approved by the Food and Drug Administration. Tramadol Negative ng/mL UI Reference Range: Khrgjw=887 Buprenorphine, Urine Negative ng/mL UI Reference Range: Cutoff=10 Creatinine, Urine 17.2 [L ] mg/dL UI Reference Range: 20.0-300.0 Specific [place] 1.0071 UI Reference Range: . pH, Urine 5.5 UI Reference Range: 4.5-8.9 Performed at: [facility] [address], [place] [id number] Windows Consultant: Nelson Zamorano PhD, Phone: [phone] Performed at: [address] [id number] Windows Consultant: Joe Montana PhD, Phone: [phone] Performed By: #### L 505.5000, L3410.9992 #### [facility] [address] [place] [address], [address] Amphetamine detection with 1 000 ng/mL as cutoffOrdered By: Walter Sellers on 07-24-2024 Amphetamines Screen method >1000 ng/mL Ql (U) Negative < 200 ng/mL [facility] No Panel InformationOrdered By: Walter Sellers on 07-24-2024 Urine Buprenorphine Qualitative Negative < 200 ng/mL [facility] Urine Oxycodone Screen Negative < 100 ng/mL [facility] Quantitative urine opiates m easurementOrdered By: Walter Sellers on 07-24-2024 Opiates Ql (U) Negative < 300 ng/mL [facility] Screening urine fentanyl kenneth surementOrdered By: Walter Sellers on 07-24-2024 fentaNYL Screen Ql (U) Negative [facility] Urine Drug Screen (VISTA)on 07-24-2024 AMPHETAMINES Negative Normal <1000 ng/mL [facility] Comment on above: Order Comment: PAIN MANAGMENT Performed By: #### L 505.5000, L3410.9992 #### [facility] [address] [place], [address] BARBITIURATES Negative Normal < 200 ng/mL [facility] Comment on above: Order Comment: PAIN MANAGMENT Performed By: #### L 505.5000, L3410.9992 #### [facility] [address] [place], [address] BENZODIAZIPINE Negative Normal < 200 ng/mL [facility] Comment on above: Order Comment: PAIN MANAGMENT Performed By: #### L 505.5000, L3410.9992 #### [facility] [address] [place], [address] BUP Ur Drug Scr Negative Normal < 200 ng/mL [facility] Comment on above: Order Comment: PAIN MANAGMENT Performed By: #### L 505.5000, L3410.9992 #### [facility] [address] [place], [address] COCAINE Negative Normal < 300 ng/mL [facility] Comment on above: Order Comment: PAIN MANAGMENT Performed By: #### L 505.5000, L3410.9992 #### [facility] [address] [place], [address] Fentanyl Negative Normal [facility] Comment on above: Order Comment: PAIN MANAGMENT Performed By: #### L 505.5000, L3410.9992 #### [facility] [address] [place], [address] METHADONE Negative Normal < 300 ng/mL [facility] Comment on above: Order Comment: PAIN MANAGMENT Performed By: #### L 505.5000, L3410.9992 #### [facility] [address] [place], [address] OPIATES Negative Normal < 300 ng/mL [facility] Comment on above: Order Comment: PAIN MANAGMENT Performed By: #### L 505.5000, L3410.9992 #### [facility] [address] [place], [address] OXYCODONE Negative Normal < 100 ng/mL [facility] Comment on above: Order Comment: PAIN MANAGMENT Performed By: #### L 505.5000, L3410.9992 #### [facility] [address] [place], [address] PCP Negative Normal < 25 ng/mL [facility] Comment on above: Order Comment: PAIN MANAGMENT Performed By: #### L 505.5000, L3410.9992 #### [facility] [address] [place], [address] THC Negative Normal < 50 ng/mL [facility] Comment on above: Order Comment: PAIN MANAGMENT Performed By: #### L 505.5000, L3410.9992 #### [facility] [address] [place], [address] Urine benzodiazepine levelOr dered By: Waletr Sellers on 07-24-2024 Benzodiazepines Ql (U) Negative < 200 ng/mL [facility] Urine cocaine levelOrdered B y: Walter Sellers on 07-24-2024 Cocaine Ql (U) Negative < 300 ng/mL [facility] Urine yaevn-7-njwbxbejhxwcpz abinol (THC) measurementOrdered By: Walter Sellers on 07-24-2024 Cannabinoids Screen Ql (U) Negative < 50 ng/mL [facility] Urine phencyclidine (PCP) de tectionOrdered By: Walter Sellers on 07-24-2024 Phencyclidine Ql (U) Negative < 25 ng/mL [facility] Knee 1 or 2 Viewson 06-21-19 25 Knee 1 or 2 Views [facility] Imaging Services [address] [place] [id number] Knee 1 or 2 Views MR#: [id number] Acct: [id number] Name: KIEL CATHERINE Walt Rep #: [id number] : 1960 M 63 From: Kiel Kramer i, MD PCP: Dr. Alyson Arthur MD Status: REG CLI Study: Knee 1 or 2 Views Date of Exam: 06/20/24 Exam# [id number] Ordering Dr: Walter Sellers MD PROCEDURE: KNEE [...] seen on the left side. Reading Location: WAR-ACDQGEAS-YB CC: Dr. Walter Sellers MD; Dr. Alyson Arthur MD Multi Disciplined Language Analyst: Signed Normal [facility] Knee 1 or 2 Views [facility] Services [address] [place] [address] Knee 1 or 2 Views MR#: [id number] Acct: [id number] Name: KIEL CATHERINE Rep #: [id number] : 1960 M 63 From: Kiel Kramer i, MD PCP: Dr. Alyson Arthur MD Status: REG CLI Study: Knee 1 or 2 Views Date of Exam: 06/20/24 Exam# [id number] Ordering Dr: Walter Sellers MD PROCEDURE: KNEE [...] Walter Sellers MD; Dr. Alyson Arthur MD Multi Disciplined Language Analyst: Signed [facility] 03-04-2024 [facility] Telephone (FAMPWS) -- KIEL CATHERINE ([id number]) 1960 M Date Time Provider Department 03/04/24 ALYSON ARTHUR During your visit today, we recorded the following information about you: Rae Salazar 03/04/2024 10:49 AM Signed Kiel is calling Alyson Arthur MD today with concern regarding Medication Request Calling in today states that he needs a new one [facility] [place]. flash glucose scanning reader ([employer] ANAHI 2 READER) Patient has been identified by name and birthdate. Duration of symptoms: N/A Person calling: spouse: Gissell Call patient at: at home and on cell [phone] (home) [phone] (cell) Was an appointment scheduled: No Closing statement: Results or non-symptom based questions: Thank you for calling [facility], your call will be returned within the next business day. Rae Perez Pss Allergies As of Date: 03/04/2024 Noted Allergy Reaction IODINATED CONTRAST MEDIA 03/16/2023 8 - GI Upset 14 - Other: See Comments Comments: Hypotension, temporary SOB LISINOPRIL 12/01/2017 14 - Other: See Comments Comments: Hyperkalemia PENICILLINS 10/29/2010 2 - Rash FLONASE (FLUTICASONE PROPIONATE) 10/18/2021 14 - Other: See Comments Comments: Nose bleeds Date Reviewed: 02/08/2024 Reviewed by: Margi Riddle APRN.SEASONER HAND - Fully Assessed Reason for Visit: Medication Request [138] Visit Diagnosis:Controlled type 2 diabetes mellitus with diabetic neuropathy, with long-term current use of insulin ([facility]) [E11.40, Z79.4] Order(s):flash glucose scanning reader [...] Noted Resol (more content not included)... Normal [facility] 02-15-2024 [facility] Telephone ([facility]) -- KIEL CATHERINE ([id number]) 1960 M Date Time Provider Department 02/15/24 ALYSON ARTHUR [facility] During your visit today, we recorded the following information about you: Aminah Escudero LPN 02/15/2024 4:54 PM Signed Direction Home sends fax requesting order for Quad cane. After printed fax face to face chart notes and order ATTN: Anastacio Shafer [phone]. Marig Riddle APRN.[facility] 02/15/2024 5:08 PM Signed Done Aminah Escudero [...] Date Reviewed: 02/08/2024 Reviewed by: Margi Riddle APRN.SEASONER HAND - Fully Assessed Primary Visit Diagnosis:Chronic back pain, unspecified back location, unspecified back pain laterality [M54.9, G89.29] Other Visit Diagnosis:Right hemiparesis (HCC) [G81.91] Order(s):CANE, QUAD OR THREE PRONG [[id number]] Order #: [id number] Prescriptions as of 02/16/2024 - amLODIPine (NORVASC) [...] times a day. - flash glucose sensor ([employer] ANAHI 2 SENSOR) kit DMII, insulin requiring. [...] [I51.7] Atria (more content not included)... Normal [facility] A1AT SerPl-mCncon 02-08-2024 Alpha 1 antitrypsin [Mass/Vol] 166 mg/dL Normal 90-200 [facility] Comment on above: Order Comment: Speci men Type: BLOOD SPECIMENOrdering Facility: [facility] Address: [address] [place] [address] Performed By: #### 1 825-9, 2132-9 ####[facility] LABCLIA [id number] [place] [address] [place] ALBUMIN/CREATININE RATIO, UR INEon 02-08-2024 Albumin DL <= 20 mg/L (U) [Mass/Vol] 14.2 mg/L Normal [facility] Comment on above: Order Comment: Sylvia men Type: URINE SPECIMENOrdering Facility: [facility] Address: [address] [place] [address] Performed By: #### U ACR ####[facility] LABCLIA [id number] [place] [address] [place] Albumin/Creatinine (U) [Mass ratio] 76 mg/g High <30 [facility] Comment on above: Order Comment: Speci men Type: URINE SPECIMENOrdering Facility: [facility] Address: [address] [place] [address] Result Comment: Adul t Male and Female Nephrotic Criteria: <30 mg/g is considered normal to mildly increased 30-300 mg/g is considered moderately increased >300 mg/g is considered severely increased KDIGO. (2013). KDIGO 2012 Clinical Practice Guideline for the Evaluation and Management of Chronic Kidney Disease. Official Journal of the International Society of Nephrology, 3(1), 1150. Performed By: #### U ACR ####[facility] LABCLIA [id number] [place] [address] [place] Creatinine (U) [Mass/Vol] 18.7 mg/dL Low 20.0-300.0 [facility] Comment on above: Order Comment: Speci men Type: URINE SPECIMENOrdering Facility: [facility] Address: [address] [place] [address] Performed By: #### U ACR ####[facility] LABCLIA [id number] [place] [address] [place] CBC W Auto Differential pane l (Bld)on 02-08-2024 Basophils (Bld) [#/Vol] 0.06 10*3/uL Normal <0.11 [facility] Comment on above: Order Comment: Speci men Type: BLOOD SPECIMENOrdering Facility: [facility] Address: [address] [place] [address] Performed By: #### 5 7021-8 ####[facility] LABCLIA [id number] [place] [address] [place] Basophils/100 WBC (Bld) 0.8 % Normal [facility] Comment on above: Order Comment: Speci men Type: BLOOD SPECIMENOrdering Facility: [facility] Address: [address] [place] [address] Performed By: #### 5 7021-8 ####[facility] LABCLIA [id number] [address] [place] Differential cell count method Nom (Bld) Auto Normal [facility] Comment on above: Order Comment: Speci men Type: BLOOD SPECIMENOrdering Facility: [facility] Address: [address] [place] [address] Performed By: #### 5 7021-8 ####[facility] LABCLIA [id number] [place] [address] [place] Eosinophils (Bld) [#/Vol] 0.03 10*3/uL Normal <0.46 [facility] Comment on above: Order Comment: Speci men Type: BLOOD SPECIMENOrdering Facility: [facility] Address: [address] [place] [address] Performed By: #### 5 7021-8 ####[facility] LABCLIA [id number] [place] [address] [place] Eosinophils/100 WBC (Bld) 0.4 % Normal [facility] Comment on above: Order Comment: Speci men Type: BLOOD SPECIMENOrdering Facility: [facility] Address: [address] [place] [address] Performed By: #### 5 7021-8 ####[facility] LABCLIA [id number] [place] [address] [place] Erythrocyte distribution width (RBC) [Ratio] 12.6 % Normal 11.5-15.0 [facility] Comment on above: Order Comment: Speci men Type: BLOOD SPECIMENOrdering Facility: [facility] Address: [address] [place] [address] Performed By: #### 5 7021-8 ####[facility] LABCLIA [id number] [place] [address] [place] Hematocrit (Bld) [Volume fraction] 45.2 % Normal 39.0-51.0 [facility] Comment on above: Order Comment: Speci men Type: BLOOD SPECIMENOrdering Facility: [facility] Address: [address] [place] [address] Performed By: #### 5 7021-8 ####[facility] LABCLIA [id number] [place] [address] [place] Hemoglobin (Bld) [Mass/Vol] 15.5 g/dL Normal 13.0-17.0 [facility] Comment on above: Order Comment: Speci men Type: BLOOD SPECIMENOrdering Facility: [facility] Address: [address] [place] [address] Performed By: #### 5 7021-8 ####[facility] LABCLIA [id number] [place] [address] [place] Immature granulocytes (Bld) [#/Vol] 10*3/uL Normal <0.10 [facility] Comment on above: Order Comment: Speci men Type: BLOOD SPECIMENOrdering Facility: [facility] Address: [address] [place] [address] Performed By: #### 5 7021-8 ####[facility] LABCLIA [id number] [place] [address] [place] Immature granulocytes/100 WBC (Bld) 0.3 % Normal [facility] Comment on above: Order Comment: Speci men Type: BLOOD SPECIMENOrdering Facility: [facility] Address: [address] [place] [address] Performed By: #### 5 7021-8 ####[facility] LABCLIA [id number] [place] [address] [place] Lymphocytes (Bld) [#/Vol] 1.56 10*3/uL Normal 1.00-4.00 [facility] Comment on above: Order Comment: Speci men Type: BLOOD SPECIMENOrdering Facility: [facility] Address: [address] [place] [address] Performed By: #### 5 7021-8 ####[facility] LABCLIA [id number] [place] [address] [place] Lymphocytes/100 WBC (Bld) 20.3 % Normal [facility] Comment on above: Order Comment: Speci men Type: BLOOD SPECIMENOrdering Facility: [facility] Address: [address] [place] [address] Performed By: #### 5 7021-8 ####[facility] LABCLIA [id number] [place] [address] [place] MCH (RBC) [Entitic mass] 30.6 pg Normal 26.0-34.0 [facility] Comment on above: Order Comment: Speci men Type: BLOOD SPECIMENOrdering Facility: [facility] Address: [address] [place] [address] Performed By: #### 5 7021-8 ####[facility] LABIA [id number] [place] [address] [place] MCHC (RBC) [Mass/Vol] 34.3 g/dL Normal 30.5-36.0 [facility] Comment on above: Order Comment: Speci men Type: BLOOD SPECIMENOrdering Facility: [facility] Address: [address] [place] [address] Performed By: #### 5 7021-8 ####[facility] LABIA [id number] [place] [address] [place] MCV (RBC) [Entitic vol] 89.3 fL Normal 80.0-100.0 [facility] Comment on above: Order Comment: Speci men Type: BLOOD SPECIMENOrdering Facility: [facility] Address: [address] [place] [address] Performed By: #### 5 7021-8 ####[facility] [id number] [place] [address] [place] Monocytes (Bld) [#/Vol] 0.62 10*3/uL Normal <0.87 [facility] Comment on above: Order Comment: Speci men Type: BLOOD SPECIMENOrdering Facility: [facility] Address: [address] [place] [address] Performed By: #### 5 7021-8 ####[facility] LABIA [id number] [place] [address] [place] Monocytes/100 WBC (Bld) 8.1 % Normal [facility] Comment on above: Order Comment: Speci men Type: BLOOD SPECIMENOrdering Facility: [facility] Address: [address] [place] [address] Performed By: #### 5 7021-8 ####[facility] LABCLIA [id number] [place] [address] [place] Neutrophils (Bld) [#/Vol] 5.38 10*3/uL Normal 1.45-7.50 [facility] Comment on above: Order Comment: Speci men Type: BLOOD SPECIMENOrdering Facility: [facility] Address: [address] [place] [address] Performed By: #### 5 7021-8 ####[facility] LABIA [id number] [place] [address] [place] Neutrophils/100 WBC (Bld) 70.1 % Normal [facility] Comment on above: Order Comment: Speci men Type: BLOOD SPECIMENOrdering Facility: [facility] Address: [address] [place] [address] Performed By: #### 5 7021-8 ####[facility] LABIA [id number] [place] [address] [place] Nucleated RBC (Bld) [#/Vol] 10*3/uL Normal <0.01 [facility] Comment on above: Order Comment: Speci men Type: BLOOD SPECIMENOrdering Facility: [facility] Address: [address] [place] [address] Performed By: #### 5 7021-8 ####[facility] LABIA [id number] [place] [address] [place] Nucleated RBC/100 WBC (Bld) [Ratio] 0.0 /100 WBC Normal [facility] Comment on above: Order Comment: Speci men Type: BLOOD SPECIMENOrdering Facility: [facility] Address: [address] [place] [address] Performed By: #### 5 7021-8 ####[facility] LABCLIA [id number] [place] [address] [place] Platelet mean volume (Bld) [Entitic vol] 12.3 fL Normal 9.0-12.7 [facility] Comment on above: Order Comment: Speci men Type: BLOOD SPECIMENOrdering Facility: [facility] Address: [address] [place] [address] Performed By: #### 5 7021-8 ####[facility] LABCLIA [id number] [place] [address] [place] Platelets (Bld) [#/Vol] 187 10*3/uL Normal 150-400 [facility] Comment on above: Order Comment: Speci men Type: BLOOD SPECIMENOrdering Facility: [facility] Address: [address] [place] [address] Performed By: #### 5 7021-8 ####[facility] LABIA [id number] [place] [address] [place] RBC (Bld) [#/Vol] 5.06 10*6/uL Normal 4.20-6.00 [facility] Comment on above: Order Comment: Speci men Type: BLOOD SPECIMENOrdering Facility: [facility] Address: [address] [place] [address] Performed By: #### 5 7021-8 ####[facility] LABIA [id number] [place] [address] [place] WBC (Bld) [#/Vol] 7.67 10*3/uL Normal 3.70-11.00 [facility] Comment on above: Order Comment: Speci men Type: BLOOD SPECIMENOrdering Facility: [facility] Address: [address] [place] [address] Performed By: #### 5 7021-8 ####[facility] LABIA [id number] [place] [address] [place] CNOVon 12-26-2024 CNOV Office Visit (FAMPWS ) -- KIEL CATHERINE ([id number]) 1960 M Date Time Provider Department 02/08/24 11:20 AM MARGI RIDDLE During your visit today, we recorded the following information about you: Temperature Pulse Respiration Blood pressure 98 degrees 64/minute 16/minute 124/76 Weight 116.6 kg Margi Riddle APRN.CNP 02/08/2024 1:20 PM Signed Chief Reason For Appointment Patient presents with: Follow Up Kiel Catherine is a 63 year old male who presents for annual exam. Last office visit date: 07/05/2023 Accompanied By daughterAlicia Have you had any critical events, hospital stays, ER visits, surgeries or procedures since your last visit here in our office: Yes Specialists/Other Healthcare Providers Seen: Patient Care Team: Alsyon Arthur MD as PCP - General (Family Medicine) Shlomo Alcocer MD as Surgeon (Cardiac Surg) Benjamin Pike MD as Referring (Cardiovascular Surgery) Kiel Barnes MD as Primary Staff Physician (Cardiology) Angela Schmid APRN.CNP as Electric Truck Operator (Family Medicine) Margi Riddle APRN.CNP as Electric Truck Operator (Family Medicine) Concerns today: Getting up frequently [...] of 1.0. He was recently admitted to [facility] for a blister on the anterior right lower extremity over the tibia which had popped causing an open wound, and TTE done at the [facility] - 03/22/2023 (B priority) Comment: Mild Cad (C priority) Comment: 11/29/22 [facility]: The LMT is normal. The LAD has [...] Ability - 03/24/2023 Comment: Insulin Dose Changed ([facility]) - 03/24/2023 Type 2 Diabetes Mellitus With Hyperglycemia, With Long-Term Current Use of Insulin ([facility]) - 03/24/2023 Comment: Hemoglobin A1C (%) Date Value 02/27/2023 6.5 06/24/2020 9.6 Dysphagia - 03/22/2023 Comment: MBS on 03/28/23 Followed by Speech therapy: see coord note Arterial Ischemic Stroke, Mca (Middle Cerebral Artery), Left, Acute ([facility]) - 03/22/2023 Comment: see coord note Open Wound of Left Great Toe - 03/22/2023 Comment: scab unknown etiology Alteration in Skin Integrity Due to Moisture - 03/22/2023 Comment: lower abdominal skin fold, right breast skin fold Skin Tear of Upper Extremity - 03/22/2023 Comment: left ear Pressure Injury of Sacral Region, Unstageable ([facility]) - 03/22/2023 Comment: coccyx Discharge Planning Issues - 03/16/2023 Comment: Patient is a 62 year old male from [place], [place]. PMANDR following for acute (more content not included)... Normal [facility] Comprehensive metabolic 2000 panelon 02-08-2024 Albumin [Mass/Vol] 3.8 g/dL Low 3.9-4.9 [facility] Comment on above: Order Comment: Speci men Type: BLOOD SPECIMENOrdering Facility: [facility] Address: [address] [place] [address] Performed By: #### 2 4323-8, 74320-2, 86401-4, 3016-3 ####[facility] LABCLIA [id number] [place] [address] [place] ALP [Catalytic activity/Vol] 125 U/L High 38-113 [facility] Comment on above: Order Comment: Speci men Type: BLOOD SPECIMENOrdering Facility: [facility] Address: [address] [place] [address] Performed By: #### 2 4323-8, 05621-4, 56121-0, 6-3 ####[facility] LABCLIA [id number] [place] [address] [place] ALT [Catalytic activity/Vol] 8 U/L Low 10-54 [facility] Comment on above: Order Comment: Speci men Type: BLOOD SPECIMENOrdering Facility: [facility] Address: [address] [place] [address] Performed By: #### 2 4323-8, 34042-0, 47185-8, 6-3 ####[facility] LABIA [id number] [place] [address] [place] Anion gap [Moles/Vol] 11 mmol/L Normal 8-15 [facility] Comment on above: Order Comment: Speci men Type: BLOOD SPECIMENOrdering Facility: [facility] Address: [address] [place] [address] Performed By: #### 2 4323-8, 05300-5, 20116-9, 6-3 ####[facility] LABIA [id number] [place] [address] [place] AST [Catalytic activity/Vol] 13 U/L Low 14-40 [facility] Comment on above: Order Comment: Speci men Type: BLOOD SPECIMENOrdering Facility: [facility] Address: [address] [place] [address] Performed By: #### 2 4323-8, 47214-6, 34454-1, 6-3 ####[facility] LABIA [id number] [place] [address] [place] Bilirubin [Mass/Vol] 0.5 mg/dL Normal 0.2-1.3 [facility] Comment on above: Order Comment: Speci men Type: BLOOD SPECIMENOrdering Facility: [facility] Address: [address] [place] [address] [place] [address] Performed By: #### 2 4323-8, 12542-3, 39344-4, 6-3 ####[facility] LABCLIA [id number] [address] [address] [place] Calcium [Mass/Vol] 9.1 mg/dL Normal 8.5-10.2 [facility] Comment on above: Order Comment: Speci men Type: BLOOD SPECIMENOrdering Facility: [facility] Address: [address] [place], [place] [address] Performed By: #### 2 4323-8, 85513-5, 48264-8, 6-3 ####[facility] LABIA [id number] [place] [id number] [place] Chloride [Moles/Vol] 98 mmol/L Normal 98-107 [facility] Comment on above: Order Comment: Speci men Type: BLOOD SPECIMENOrdering Facility: [facility] Address: [address] [place], [place] [address] Performed By: #### 2 4323-8, 32035-8, 65175-4, 6-3 ####[facility] LABIA [id number] [place] [id number] [place] CO2 [Moles/Vol] 25 mmol/L Normal 22-30 [facility] Comment on above: Order Comment: Speci men Type: BLOOD SPECIMENOrdering Facility: [facility] Address: [address] [place], [place] [address] Performed By: #### 2 4323-8, 64896-7, 62480-5, 6-3 ####[facility] LABIA [id number] [place] [id number] [place] Creatinine [Mass/Vol] 0.70 mg/dL Low 0.73-1.22 [facility] Comment on above: Order Comment: Speci men Type: BLOOD SPECIMENOrdering Facility: [facility] Address: [address] [place] [id number] Performed By: #### 2 4323-8, 34643-6, 78006-3, 3016-3 ####[facility] LABIA [id number] [place] [id number] [place] Creatinine and Glomerular filtration rate.predicted panel (S/P/Bld) 104 mL/min/1.73m??? Normal >=60 [facility] Comment on above: Order Comment: Sylvia doyle Type: BLOOD SPECIMENOrdering Facility: [facility] Address: [address] [place] [address] Result Comment: Stephanie mated Glomerular Filtration Rate [...] actual GFR. Performed By: #### 2 4323-8, 50416-0, 57609-9, 6-3 ####[facility] LABCLIA [id number] [place] [id number] [place] Glucose [Mass/Vol] 326 mg/dL High 74-99 [facility] Comment on above: Order Comment: Sylvia doyle Type: BLOOD SPECIMENOrdering Facility: [facility] Address: [address] [place] [address] Result Comment: The [place] Diabetes Association (ADA) provides guidance for cutoff [...] Standards of Medical Care in Diabetes 2016, [place] [employer] Association. Diabetes Care. 2016.39(Suppl 1). Performed By: #### 2 4323-8, 41530-2, 29340-6, 6-3 ####[facility] LABCLIA [id number] [address] [address] [place] Potassium [Moles/Vol] 5.1 mmol/L Normal 3.7-5.1 [facility] Comment on above: Order Comment: Speci men Type: BLOOD SPECIMENOrdering Facility: [facility] Address: [address] [place], [place] [address] Performed By: #### 2 4323-8, 48365-2, 57692-0, 6-3 ####[facility] LABIA [id number] [address] [address] [place] Protein [Mass/Vol] 6.4 g/dL Normal 6.3-8.0 [facility] Comment on above: Order Comment: Speci men Type: BLOOD SPECIMENOrdering Facility: [facility] Address: [address] [place] [address] Performed By: #### 2 4323-8, 69194-1, , 6-3 ####[facility] LABIA [id number] [place] [id number] [place] Sodium [Moles/Vol] 134 mmol/L Low 136-144 [facility] Comment on above: Order Comment: Speci men Type: BLOOD SPECIMENOrdering Facility: [facility] Address: [address] [place] [address] Performed By: #### 2 4323-8, 16673-1, 46378-7, 6-3 ####[facility] LABIA [id number] [address] [address] [place] Urea nitrogen [Mass/Vol] 19 mg/dL Normal 9-24 [facility] Comment on above: Order Comment: Speci men Type: BLOOD SPECIMENOrdering Facility: [facility] Address: [address] [place] [address] Performed By: #### 2 4323-8, 65683-1, 90495-5, 3016-3 ####[facility] LABIA [id number] [place] [address] [place] HbA1c (Bld)on 02-08-2024 Average glucose Estimated from glycated hemoglobin (Bld) [Mass/Vol] 249 mg/dL Normal [facility] Comment on above: Order Comment: Speci men Type: BLOOD SPECIMENOrdering Facility: [facility] Address: [address] [place] [address] Result Comment: eAG: (Estimated average glucose) is a calculated value from HgbA1c and is c s s representative of the average blood glucose level in the last 2-3 month period. Performed By: #### 5 5454-3 ####[facility] LABIA [id number] [place] [address] [place] HbA1c (Bld) [Mass fraction] 10.3 % High 4.3-5.6 [facility] Comment on above: Order Comment: Sylvia doyle Type: BLOOD SPECIMENOrdering Facility: [facility] Address: [address] [place] [address] Result Comment: [place] Diabetes Association guidelines indicate that patients with HgbA1c in the range 5.7-6.4% are at increased risk for development of diabetes, and intervention by lifestyle modification may be beneficial. HgbA1c greater or equal to 6.5% is considered diagnostic of diabetes. Performed By: #### 5 5454-3 ####[facility] LABIA [id number] [place] [address] [place] Lipid 1996 panelon 4 Cholesterol [Mass/Vol] 157 mg/dL Normal <200 [facility] Comment on above: Order Comment: Sylvia doyle Type: BLOOD SPECIMENOrdering Facility: [facility] Address: [address] [place] [address] Result Comment: <200 mg/dL, Desirable 200-239 mg/dL, Borderline high >239 mg/dL, High Performed By: #### 2 4323-8, 81196-2, 67981-0, 6-3 ####[facility] LABCLIA [id number] [address] [address] [place] Cholesterol in HDL [Mass/Vol] 33 mg/dL Low >39 [facility] Comment on above: Order Comment: Speci men Type: BLOOD SPECIMENOrdering Facility: [facility] Address: [address] [place] [address] Result Comment: 40-5 9 mg/dL, Acceptable >59 mg/dL, High: Negative risk factor for coronary heart disease <40 mg/dL, Low: Positive risk factor for coronary heart disease Performed By: #### 2 4323-8, 68968-0, , 3015-3 ####[facility] LABCLIA [id number] [address] [address] [place] Cholesterol in LDL [Mass/Vol] 64 mg/dL Normal <100 [facility] Comment on above: Order Comment: Sylvia men Type: BLOOD SPECIMENOrdering Facility: [facility] Address: [address] [place] [address] Result Comment: <100 mg/dL, Optimal 100-129 mg/dL, Near optimal/above optimal 130-159 mg/dL, Borderline high 160-189 mg/dL, High >189 mg/dL, Very high Secondary prevention optimal LDL Cholesterol levels are recommended to be < 70 mg/dL Performed By: #### 2 4323-8, 68440-6, , 3015-3 ####[facility] LABCLIA [id number] [address] [address] [place] Cholesterol in LDL/Cholesterol in HDL [Mass ratio] 1.94 {ratio} Normal <2.54 [facility] Comment on above: Order Comment: Breannei men Type: BLOOD SPECIMENOrdering Facility: [facility] Address: [address] [place] [address] Result Comment: Refromelia schraderce: 1. National Cholesterol Education Program ATP III Guideline At-A-Glance Quick Desk Reference: National Heart, Lung, and Blood [place]. National Institutes of Health. 2001: NIH Publication No. 01-3305. 2. An International Atherosclerosis Society position paper: global recommendations for the management of dyslipidemia: executive summary, Atherosclerosis. 2014: 232(2):410-413. Performed By: #### 2 4323-8, 29385-5, 10861-5, 6-3 ####[facility] LABCLIA [id number] [place] [address] [place] Cholesterol in VLDL [Mass/Vol] 60 mg/dL High <30 [facility] Comment on above: Order Comment: Speci men Type: BLOOD SPECIMENOrdering Facility: [facility] Address: [address] [place] [address] Performed By: #### 2 4323-8, 21694-2, 88182-2, 6-3 ####[facility] LABCLIA [id number] [place] [address] [place] Cholesterol non HDL [Mass/Vol] 124 mg/dL Normal <130 [facility] Comment on above: Order Comment: Sylvia doyle Type: BLOOD SPECIMENOrdering Facility: [facility] Address: [address] [place] [address] Result Comment: <130 mg/dL, Optimal 130-159 mg/dL, Near optimal/above optimal 160-189 mg/dL, Borderline high 190-219 mg/dL, High >219 mg/dL, Very high Secondary prevention optimal non HDL Cholesterol levels are recommended to be <100 mg/dL Performed By: #### 2 4323-8, 15853-4, 80514-4, 6-3 ####[facility] LABCLIA [id number] [place] [address] [place] Cholesterol.total/Chol esterol in HDL [Mass ratio] 4.76 {ratio} Normal <5.10 [facility] Comment on above: Order Comment: Breannei men Type: BLOOD SPECIMENOrdering Facility: [facility] Address: [address] [place] [address] Performed By: #### 2 4323-8, 72747-2, 40756-7, 3015-3 ####[facility] LABCLIA [id number] [place] [address] [place] FASTING TIME 15 hrs Normal [facility] Comment on above: Order Comment: Speci men Type: BLOOD SPECIMENOrdering Facility: [facility] Address: [address] [place] [address] Performed By: #### 2 4323-8, 74225-1, 38159-7, 3015-3 ####[facility] LABCLIA [id number] [place] [address] [place] Triglyceride [Mass/Vol] 300 mg/dL High <150 [facility] Comment on above: Order Comment: Speci men Type: BLOOD SPECIMENOrdering Facility: [facility] Address: [address] [place] [address] Result Comment: <150 mg/dL, Normal 150-199 mg/dL, Borderline high 200-499 mg/dL, High >499 mg/dL, Very high Performed By: #### 2 4323-8, 90491-9, , 3 ####[facility] LABCLIA [id number] [place] [address] [place] Magnesium SerPl-mCncon 02-07 Magnesium [Mass/Vol] 1.7 mg/dL Normal 1.7-2.3 [facility] Comment on above: Order Comment: Speci men Type: BLOOD SPECIMENOrdering Facility: [facility] Address: [address] [place] [address] Performed By: #### 2 4323-8, 95353-4, , 3 ####[facility] LABCLIA [id number] [place] [id number] [place] TSH SerPl-aCncon 02-08-2024 TSH Qn 0.825 m[IU]/L Normal 0.270-4.20 0 [facility] Comment on above: Order Comment: Speci men Type: BLOOD SPECIMENOrdering Facility: [facility] Address: [address] [place] [address] Performed By: #### 2 4323-8, 40535-2, 38932-2, 3016-3 ####[facility] LABCLIA [id number] [place] [address] [place] Urinalysis complete panel (U )on 02-08-2024 Bacteria LM.HPF (Urine sed) [#/Area] Negative Normal Negative [facility] Comment on above: Order Comment: Speci men Type: URINE SPECIMENOrdering Facility: [facility] Address: [address] [place] [address] Performed By: #### 2 4356-8 ####[facility] LABCLIA [id number] [place] [address] [place] Bilirubin Ql (U) Negative Normal Negative [facility] Comment on above: Order Comment: Speci men Type: URINE SPECIMENOrdering Facility: [facility] Address: [address] [place] [address] Performed By: #### 2 4356-8 ####[facility] LABCLIA [id number] [place] [address] [place] Clarity (Unsp spec) Clear Normal Clear [facility] Comment on above: Order Comment: Speci men Type: URINE SPECIMENOrdering Facility: [facility] Address: [address] [place] [address] Performed By: #### 2 4356-8 ####[facility] LABCLIA [id number] [place] [address] [place] Color (U) Yellow Normal Yellow [facility] Comment on above: Order Comment: Speci men Type: URINE SPECIMENOrdering Facility: [facility] Address: [address] [place] [address] Performed By: #### 2 4356-8 ####[facility] LABCLIA [id number] [place] [address] [place] Epithelial cells LM.HPF (Urine sed) [#/Area] None Seen Normal [facility] Comment on above: Order Comment: Speci men Type: URINE SPECIMENOrdering Facility: [facility] Address: [address] [place] [address] Performed By: #### 2 4356-8 ####[facility] LABCLIA [id number] [place] [address] [place] Glucose Test strip (U) [Mass/Vol] Negative Normal Negative [facility] Comment on above: Order Comment: Speci men Type: URINE SPECIMENOrdering Facility: [facility] Address: [address] [place] [address] Performed By: #### 2 4356-8 ####[facility] LABCLIA [id number] [place] [address] [place] Hemoglobin Ql (U) Negative Normal Negative [facility] Comment on above: Order Comment: Speci men Type: URINE SPECIMENOrdering Facility: [facility] Address: [address] [place] [address] Performed By: #### 2 4356-8 ####[facility] LABCLIA [id number] [place] [address] [place] Hyaline casts (Urine sed) [#/Area] 0 /[LPF] Normal 0 /LPF [facility] Comment on above: Order Comment: Speci men Type: URINE SPECIMENOrdering Facility: [facility] Address: [address] [place] [address] Performed By: #### 2 4356-8 ####[facility] LABCLIA [id number] [place] [address] [place] Ketones Ql (U) Negative Normal Negative [facility] Comment on above: Order Comment: Speci men Type: URINE SPECIMENOrdering Facility: [facility] Address: [address] [place] [address] Performed By: #### 2 4356-8 ####[facility] LABCLIA [id number] [place] [address] [place] Leukocyte esterase Test strip Ql (U) Negative Normal Negative [facility] Comment on above: Order Comment: Speci men Type: URINE SPECIMENOrdering Facility: [facility] Address: [address] [place] [address] Performed By: #### 2 4356-8 ####[facility] LABCLIA [id number] [place] [address] [place] Nitrite Ql (U) Negative Normal Negative [facility] Comment on above: Order Comment: Speci men Type: URINE SPECIMENOrdering Facility: [facility] Address: [address] [place] [address] Performed By: #### 2 4356-8 ####[facility] LABCLIA [id number] [place] [address] [place] pH (U) 6.0 [pH] Normal <8.5 [facility] Comment on above: Order Comment: Speci men Type: URINE SPECIMENOrdering Facility: [facility] Address: [address] [place] [address] Performed By: #### 2 4356-8 ####[facility] LABCLIA [id number] [place] [address] [place] Protein (U) [Mass/Vol] Negative Normal Negative [facility] Comment on above: Order Comment: Speci men Type: URINE SPECIMENOrdering Facility: [facility] Address: [address] [place] [address] Performed By: #### 2 4356-8 ####[facility] LABCLIA [id number] [place] [address] [place] RBC LM.HPF (Urine sed) [#/Area] 0-2 /HPF Normal 0-2 /HPF [facility] Comment on above: Order Comment: Speci men Type: URINE SPECIMENOrdering Facility: [facility] Address: [address] [place] [address] Performed By: #### 2 4356-8 ####[facility] [id number] [place] [address] [place] Specific gravity (U) [Rel density] 1.010 Normal 1.005-1.03 0 [facility] Comment on above: Order Comment: Speci men Type: URINE SPECIMENOrdering Facility: [facility] Address: [address] [place] [address] Performed By: #### 2 4356-8 ####[facility] [id number] [place] [address] [place] Urobilinogen Ql (U) 0.2 EU/dL Normal 0.2-1.0 EU/dL [facility] Comment on above: Order Comment: Speci men Type: URINE SPECIMENOrdering Facility: [facility] Address: [address] [place] [address] Performed By: #### 2 4356-8 ####[facility] [id number] [place] [address] [place] WBC LM.HPF (Urine sed) [#/Area] 0-5 /HPF Normal 0-5 /HPF [facility] Comment on above: Order Comment: Speci men Type: URINE SPECIMENOrdering Facility: [facility] Address: [address] [place] [address] Performed By: #### 2 4356-8 ####[facility] [id number] [place] [address] [place] Vit B12 [facility] 12-26-2 024 Cobalamin (Vitamin B12) [Mass/Vol] 589 pg/mL Normal 232-1245 [facility] Comment on above: Order Comment: Speci men Type: BLOOD SPECIMENOrdering Facility: [facility] Address: [address] [place] [address] Performed By: #### 1 825-9, 2132-9 ####[facility] LABCLIA [id number] [id number] [id number] [facility] CNPNon 01-29-2024 CNPN Telephone ([facility]) -- KIEL CATHERINE ([id number]) 1960 M Date Time Provider Department 01/29/24 [facility] During your visit today, we recorded the [...] going to be completed. Please advise Margi Riddle, [employer] ACCOUNT EXECUTIVE.SEASONER HAND 01/29/2024 2:49 PM Signed No. They need to F2F, both need labs done.? Bhavani Juan, RN 01/29/2024 3:09 PM Signed Called and [...] disease [J98 (more content not included)... Normal [facility] [place] 12-28-2023 CNPN Telephone ([facility]) -- FLORINKIEL ([id number]) 1960 Date Time Provider Department 12/28/23 ALYSON ARTHUR [facility] During your visit today, we recorded the following information about you: Tia Arenas RN 12/28/2023 3:02 PM Signed [facility] calling to let provider know they faxed N for incontinence supplies. Asking if form received? [...] a day. - flash glucose sensor (FREESTYLE ANHAI 2 SENSOR) kit DMII, insulin requiring. Testing [...] [M77.8] 05/14/2013 (more content not included)... Normal [facility] Telephone ([facility]) -- FLORINKIEL Godoy ([id number]) 1960 M Date Time Provider Department 12/28/23 ALYSON ARTHUR During your visit today, we [...] [I35.0] 08/10/2018 (more content not included)... Normal [facility] [place] 12-19-2023 CNPN Telephone ([facility]) -- KIEL CATHERINE ([id number]) 1960 [place] Date Time Provider Department 12/19/23 ALYSON ARTHUR During your visit today, we recorded the following information about you: July Perez LPN 12/19/2023 11:45 AM Signed Aria with [facility] called and they received the prescription for Novolog flexpen. Aria reports they need more information. Need to have a per day and max amount so they can fill and bill. ANALI Ashton JACQUELINE A 12/19/2023 12:17 PM Signed Done and resent Fely Cohn LPN 12/19/2023 3:21 PM Signed [facility] calling asking to have Novalog rx [...] not exceed (more content not included)... Normal [facility] 12-12-2023 [facility] Telephone (JIMENEZ) -- KIEL CATHERINE ([id number]) 1960 M Date Time Provider Department 12/12/23 [facility] [place] During your visit today, we recorded the [...] please send rx for Novolog Flexpens to [facility]. ANALI Ortez Jamie, LPN 12/12/2023 3:24 PM Signed See scanned HH POC reports. Pt has Novolog Flexpen listed [...] med updates in system never filled. Called [facility] and they have not dispensed Novolog since 2021. Advised received rx for humalog with sliding scale QID on 12/06/23 and gave to patient. They have never given Humalog prior. Verified that last LANTUS was fill May 2023 for 90 days and would only last till August. [facility] is not sure if rx are being filled at another pharmacy? I advised we have been sending to [facility] but family could transfer out. Spoke to and she advised spouse insulin comes from [facility] and hers from [facility]. said that she takes Novolog and thought [...] the morning. Would need to call the [phone] phone her phone is . He uses [facility] for his pharmacy. Aware PCP is out [...] Guthrie MA 12/18/2023 10:04 AM [facility] a [facility]. Lorie will call back. Elma Guthrie MA December 18, 2023 10:03 AM Allison Omalley MA 12/18/2023 3:17 PM Signed Lorie from [facility] returned call. States she only sees patient on monthly basis and last visit was 11/15. She states whatever her med list for patient is isn't necessarily what he's currently taking as it could have changed. Med list from Lorie: Lantus 12 units qhs Novolog flex pens sliding scale TID (50 units for q 50/200) LITTLE Willett Jacqueline A, APRN.TODD 12/18/2023 5:19 PM Signed Please let pt. [...] Visit Diagnosis:T (more content not included)... 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 There are no findings to suggest anastomotic stenosis, infection, or leak. There are the typical postoperative changes present. Overall, the findings are appropriate for the recent postoperative state. Multi Disciplined Language Analyst: TOMMY Transcribe Date/Time: Jun 27 2023 1:24P Dictated by : JIMY HERMOSILLO DO This examination was interpreted and the report reviewed and electronically signed by: JIMY HERMOSILLO DO on Jun 27 2023 2:47PM [facility] DIVISION OF RADIOLOGY * * *Final Report* [...] AORTIC DIMENSIONS: AORTIC ROOT: 4.0 cm measured [id number] mid ASCENDING THORACIC AORTA: graft distal ASCENDING THORACIC AORTA: 2.9 cm mid AORTIC ARCH: 2.3 cm mid DESCENDING THORACIC AORTA: 3.0 cm limited upper ABDOMEN: unremarkable BONES: degenerative changes of the thoracic spine Power Cutting Machine Operator (topogram) images: No additional findings. DIVISION OF [...] AORTIC DIMENSIONS: AORTIC ROOT: 4.0 cm measured [id number] mid ASCENDING THORACIC AORTA: graft distal ASCENDING THORACIC AORTA: 2.9 cm mid AORTIC ARCH: 2.3 cm mid DESCENDING THORACIC AORTA: 3.0 cm limited upper ABDOMEN: unremarkable BONES: degenerative changes of the thoracic spine Power Cutting Machine Operator (topogram) images: No additional findings. IMPRESSION IMPRESSION: The patient has undergone AVR (27 Epic plus) and Ascending repair (28 jazz-shield) on 03/20/2023. There are no findings to suggest anastomotic stenosis, infection, or leak. There are the typical postoperative changes present. Overall, the findings are appropriate for the recent postoperative state. Multi Disciplined Language Analyst: PSCB Transcribe Date/Time: Jun 27 2023 1:24P Dictated by : JIMY HERMOSILLO DO This examination was interpreted and the report reviewed and electronically signed by: JIMY HERMOSILLO DO on Jun 27 2023 2:47PM EST [facility] Radiology Study observation (narrative) [facility] CTA Chest vessels W contrast IVOrdered By: Ccf Provider on 06-27-2023 [facility] Absolute lymphocyte countOrd ered By: Trip Fraire on 06-24-2023 Lymphocytes Auto (Unsp spec) [#/Vol] 1.49 10*3/uL 0.83-4.51 [facility] Automated lymphocyte count a s percentage of total leukocytesOrdered By: Trip Fraire on 06-24-2023 Lymphocytes/100 WBC Auto (Unsp spec) 24.7 % 19-41 [facility] Basophil percentageOrdered B y: Trip Fraire on 06-24-2023 Basophils/100 WBC (Bld) 0.8 % 0-1 [facility] Chloride [Moles/Vol] 101 mmol/L 98-107 [facility] Eosinophils/100 WBC (Bld) 1.2 % 0-5 [facility] Glucose [Mass/Vol] 169 mg/dL 74-106 [facility] Comment on above: Fasting Glucose resu lt greater than or equal to 126 mg/dL suggests DIABETES MELLITUS per A.D.A. criteria. Hemoglobin (Bld) [Mass/Vol] 12.6 g/dL 13.0-16.5 [facility] Monocytes/100 WBC (Bld) 11.6 % 0-10 [facility] Neutrophils (Bld) [#/Vol] 3.7 10*3/uL 2.0-7.7 [facility] Neutrophils/100 WBC (Bld) 61.5 % 47-70 [facility] Potassium [Moles/Vol] 2.8 mmol/L 3.5-5.1 [facility] Sodium [Moles/Vol] 137 mmol/L 136-145 [facility] WBC (Bld) [#/Vol] 6.0 10*3/uL 4.4-11.0 [facility] Determination of erythrocyte mean corpuscular volume (MCV)Ordered By: Trip Fraire on 06-24-2023 MCV (RBC) [Entitic vol] 89.9 fL 80-94 [facility] Erythrocyte distribution wid th ratioOrdered By: Trip Fraire on 06-24-2023 Erythrocyte distribution width (RBC) [Ratio] 14.3 % 11.6-14.6 [facility] Erythrocyte distribution wid th standard deviationOrdered By: Trip Fraire on 06-24-2023 Erythrocyte distribution width (RBC) [Entitic vol] 46.9 fL 35.1-43.9 [facility] Hematocrit Auto (Bld) [Volum e fraction]Ordered By: Trip Fraire on 06-24-2023 Hematocrit (Bld) [Volume fraction] 39.3 % 40-54 [facility] Immature granulocytes/100 WB C Auto (Bld)Ordered By: Trip Fraire on 06-24-2023 Immature granulocytes/100 WBC (Bld) 0.200 % 0.0-0.9 [facility] Comment on above: IG% - Immature Granu locytes (promyelocytes, myelocytes and metamyelocytes) > 1% indicates that a LEFT SHIFT is Present. Laboratory - Chemistry and C hemistry - challengeOrdered By: Trip Fraire on 06-24-2023 CO2 [Moles/Vol] 29.0 mmol/L 21.0-32.0 [facility] Urea nitrogen/Creatinine [Mass ratio] 28.6 mg/mg 10-20 [facility] Laboratory - Hematology and Cell countsOrdered By: Trip Fraire on 06-24-2023 MCH (RBC) [Entitic mass] 28.8 pg 27.0-32.0 [facility] MCHC (RBC) [Mass/Vol] 32.1 g/dL 32-36 [facility] Nucleated RBC/100 WBC (Bld) [Ratio] 0 % 0-5 [facility] Platelet mean volume (Bld) [Entitic vol] 10.9 fL 6.2-12.0 [facility] Platelets (Bld) [#/Vol] 227 10*3/uL 150-450 [facility] No Panel InformationOrdered By: Trip Fraire on 06-24-2023 Estimated Creatinine Clearance Calc 104.03 ml/min [facility] Estimated GFR (MDRD) Amer 120 mL/min >60 [facility] Comment on above: GFR Calc Estimated GFR (MDRD) Non-Af Amer 99 mL/min >60 [facility] Comment on above: Non- GFR Calc RBC Auto (Bld) [#/Vol]Ordere d By: Trip Fraire on 06-24-2023 RBC (Bld) [#/Vol] 4.37 10*6/uL 4.6-6.2 [facility] Serum or plasma calcium zay urement (mass/volume)Ordered By: Trip Fraire on 06-24-2023 Calcium [Mass/Vol] 8.7 mg/dL 8.5-10.1 [facility] Serum or plasma creatinine m easurement (mass/volume)Ordered By: Trip Fraire on 06-24-2023 Creatinine [Mass/Vol] 0.84 mg/dL 0.70-1.30 [facility] Comment on above: The validity of the calculated GFR & GFRAA in patients over 70 years has not been determined. Clinical correlation is essential. Serum or plasma urea nitroge n measurement (mass/volume)Ordered By: Trip Fraire on 06-24-2023 Urea nitrogen [Mass/Vol] 24 mg/dL 7-18 [facility] Thin prep Papanicolaou smear with manual screeningOrdered By: Trip Fraire on 06-24-2023 Thin prep Papanicolaou smear with manual screening 235 mg/dL 74-106 [facility] Comment on above: MANAGEMENT OF PATIEN T CARE PER NURSING PROTOCOL Thin prep Papanicolaou smear with manual screening 7 5-15 [facility] Absolute lymphocyte countOrd ered By: Carmen Matthews on 06-22-2023 Lymphocytes Auto (Unsp spec) [#/Vol] 1.61 10*3/uL 0.83-4.51 [facility] Automated lymphocyte count a s percentage of total leukocytesOrdered By: Carmen Matthews on 06-22-2023 Lymphocytes/100 WBC Auto (Unsp spec) 12.5 % 19-41 [facility] Basophil percentageOrdered B y: Carmen Matthews on 06-22-2023 Basophil percentage 0-5 SEEN /hpf 0-5 [facility] Basophils/100 WBC (Bld) 0.4 % 0-1 [facility] Bilirubin [Mass/Vol] 0.50 mg/dL 0.20-1.00 [facility] Comment on above: For patients on eltr ombopag therapy, use of Dimension [place] TBIL is not recommended. Chloride [Moles/Vol] 97 mmol/L 98-107 [facility] Eosinophils/100 WBC (Bld) 0.1 % 0-5 [facility] Glucose [Mass/Vol] 305 mg/dL 74-106 [facility] Comment on above: Glucose result great er than or equal to 200 mg/dLsuggests DIABETES MELLITUS per A.D.A. criteria. Hemoglobin (Bld) [Mass/Vol] 16.0 g/dL 13.0-16.5 [facility] Monocytes/100 WBC (Bld) 9.6 % 0-10 [facility] Neutrophils (Bld) [#/Vol] 9.9 10*3/uL 2.0-7.7 [facility] Neutrophils/100 WBC (Bld) 77.0 % 47-70 [facility] Potassium [Moles/Vol] 3.6 mmol/L 3.5-5.1 [facility] Protein [Mass/Vol] 7.4 g/dL 6.4-8.2 [facility] Sodium [Moles/Vol] 136 mmol/L 136-145 [facility] WBC (Bld) [#/Vol] 12.8 10*3/uL 4.4-11.0 [facility] Bilirubin Test strip Ql (U)O rdered By: Carmen Matthews on 06-22-2023 Bilirubin Ql (U) 3 mg/dL Negative [facility] Comment on above: COLOR OF URINE MAY A FFECT DIPSTICK RESULTS. Determination of erythrocyte mean corpuscular volume (MCV)Ordered By: Carmen Matthews on 06-22-2023 MCV (RBC) [Entitic vol] 86.9 fL 80-94 [facility] Direct bilirubinOrdered By: Carmen Matthews on 06-22-2023 Bilirubin.direct [Mass/Vol] 0.20 mg/dL 0.00-0.30 [facility] Erythrocyte distribution wid th ratioOrdered By: Carmen Matthews on 06-22-2023 Erythrocyte distribution width (RBC) [Ratio] 14.2 % 11.6-14.6 [facility] Erythrocyte distribution wid th standard deviationOrdered By: Carmen Matthews on 06-22-2023 Erythrocyte distribution width (RBC) [Entitic vol] 45.3 fL 35.1-43.9 [facility] Hematocrit Auto (Bld) [Volum e fraction]Ordered By: Carmen Matthews on 06-22-2023 Hematocrit (Bld) [Volume fraction] 47.8 % 40-54 [facility] Hyaline casts LM.LPF (Urine sed) [#/Area]Ordered By: Carmen Matthews on 06-22-2023 Hyaline casts (Urine sed) [#/Area] 0 /[LPF] 0-5 [facility] Immature granulocytes/100 WB C Auto (Bld)Ordered By: Carmen Matthews on 06-22-2023 Immature granulocytes/100 WBC (Bld) 0.400 % 0.0-0.9 [facility] Comment on above: IG% - Immature Granu locytes (promyelocytes, myelocytes and metamyelocytes) > 1% indicates that a LEFT SHIFT is Present. Ketones Test strip Ql (U)Ord ered By: Carmen Matthews on 06-22-2023 Ketones Ql (U) 5 mg/dl Negative [facility] Laboratory - Chemistry and C hemistry - challengeOrdered By: Carmen Matthews on 06-22-2023 ALP [Catalytic activity/Vol] 129 U/L 45-117 [facility] ALT [Catalytic activity/Vol] 14 U/L 16-61 [facility] CO2 [Moles/Vol] 28.0 mmol/L 21.0-32.0 [facility] Globulin (S) [Mass/Vol] 4.5 g/dL 2.2-4.2 [facility] Lipase [Catalytic activity/Vol] 11 U/L 13-75 [facility] Comment on above: Please note:LIPASE r evised reference range effective 22. New Lipase methodology. Expected to produce lower values than the previous assay method. NEW Reference Range: 13 - 75 U/L Urea nitrogen/Creatinine [Mass ratio] 24.0 mg/mg 10-20 [facility] Laboratory - Hematology and Cell countsOrdered By: Carmen Matthews on 06-22-2023 MCH (RBC) [Entitic mass] 29.1 pg 27.0-32.0 [facility] MCHC (RBC) [Mass/Vol] 33.5 g/dL 32-36 [facility] Nucleated RBC/100 WBC (Bld) [Ratio] 0 % 0-5 [facility] Platelet mean volume (Bld) [Entitic vol] 10.9 fL 6.2-12.0 [facility] Platelets (Bld) [#/Vol] 352 10*3/uL 150-450 [facility] Mucus LM Ql (Urine sed)Order ed By: Carmen Matthews on 06-22-2023 Mucus Ql (Urine sed) 0 SEEN /hpf [facility] Nitrite Test strip Ql (U)Ord ered By: Carmen Matthews on 06-22-2023 Nitrite Ql (U) Negative Negative [facility] No Panel InformationOrdered By: Carmen Matthews on 06-22-2023 Urine RBC 0-5 SEEN /hpf 0-5 [facility] Estimated Creatinine Clearance Calc 67.87 ml/min [facility] Estimated GFR (MDRD) Amer 75 mL/min >60 [facility] Comment on above: GFR Calc Estimated GFR (MDRD) Non-Af Amer 62 mL/min >60 [facility] Comment on above: Non- GFR Calc Protein Test strip Ql (U)Ord ered By: Carmen Matthews on 06-22-2023 Protein Ql (U) 30 mg/dl Negative [facility] RBC Auto (Bld) [#/Vol]Ordere d By: Carmen Matthews on 06-22-2023 RBC (Bld) [#/Vol] 5.50 10*6/uL 4.6-6.2 [facility] Serum or plasma calcium zay urement (mass/volume)Ordered By: Carmen Matthews on 06-22-2023 Calcium [Mass/Vol] 9.5 mg/dL 8.5-10.1 [facility] Serum or plasma creatinine m easurement (mass/volume)Ordered By: Carmen Matthews on 06-22-2023 Creatinine [Mass/Vol] 1.25 mg/dL 0.70-1.30 [facility] Comment on above: The validity of the calculated GFR & GFRAA in patients over 70 years has not been determined. Clinical correlation is essential. Serum or plasma urea nitroge n measurement (mass/volume)Ordered By: Carmen Matthews on 06-22-2023 Urea nitrogen [Mass/Vol] 30 mg/dL 7-18 [facility] Squamous epithelial cells de tection in urine sediment by light microscopyOrdered By: Carmen Matthews on 06-22-2023 Epithelial cells.squamous LM Ql (Urine sed) 0-5 SEEN /hpf 0-5 [facility] Thin prep Papanicolaou smear with manual screeningOrdered By: Carmen Matthews on 06-22-2023 Thin prep Papanicolaou smear with manual screening 2.9 g/dL 3.2-5.0 [facility] Thin prep Papanicolaou smear with manual screening 16 U/L 15-37 [facility] Thin prep Papanicolaou smear with manual screening 11 5-15 [facility] Urine blood detectionOrdered By: Carmen Matthews on 06-22-2023 RBC Ql (U) Negative Negative [facility] Urine clarityOrdered By: Olimpia Matthews on 06-22-2023 Clarity (U) Clear Clear [facility] Urine color determinationOrd ered By: Carmen Matthews on 06-22-2023 Color (U) Yellow Yellow [facility] Urine glucose detectionOrder ed By: Carmen Matthews on 06-22-2023 Glucose Ql (U) Normal mg/dl Normal [facility] Urine leukocyte esterase det ection by dipstickOrdered By: Carmen Matthews on 06-22-2023 Leukocyte esterase Test strip Ql (U) Negative Negative [facility] Urine pHOrdered By: Carmen Matthews on 06-22-2023 pH (U) 5.0 [pH] 5.0 - 8.0 [facility] Urine sediment bacteria coun t by microscopy (number/high power field)Ordered By: Carmen Matthews on 06-22-2023 Bacteria LM.HPF (Urine sed) [#/Area] 1 /[HPF] None Seen [facility] Urine specific gravity measu rementOrdered By: Carmen Matthews on 06-22-2023 Specific gravity (U) [Rel density] 1.025 1.002-1.03 0 [facility] Urine urobilinogen measureme ntOrdered By: Carmen Matthews on 06-22-2023 Urobilinogen Ql (U) 1 mg/dl Normal [facility] Whole blood hemoglobin A1c/t otal hemoglobin ratio (mass fraction)Ordered By: Patrick Sharma on 06-22-2023 HbA1c (Bld) [Mass fraction] 7.3 % 3.8-5.6 [facility] Comment on above: Normal < 5.7 % Predi abetic 5.7 - 6.4 % Diabetic >or= 6.5 % Please note range changes. No Panel Informationon 05-28 IMPRESSION: No acute osseous abnormality Multi Disciplined Language Analyst: TOMMY Transcribe Date/Time: May 29 2023 1:29P Dictated by : LILIA MITCHELL MD This examination was interpreted and the report reviewed and electronically signed by: LILIA MITCHELL MD on May 29 2023 1:33PM [facility] DIVISION OF RADIOLOGY Radiology Study observation (narrative) [facility] No Panel InformationOrdered By: Ccf Provider on 05-29-2023 [facility] XR Hand - right PA and [...] PA/LAT/OBL/SCAPH RT -- RIGHT with 3 (accession [id number]), 4 (accession [id number]) views on 3 (accession [id number]), 4 (accession [id number]) images Comparison: None RESULT: No acute fracture [...] PA/LAT/OBL/SCAPH RT -- RIGHT with 3 (accession [id number]), 4 (accession [id number]) views on 3 (accession [id number]), 4 (accession [id number]) images Comparison: None RESULT: No acute fracture or dislocation. Mild narrowing at multiple interphalangeal joints with small marginal osteophytes. IMPRESSION IMPRESSION: No acute osseous abnormality Multi Disciplined Language Analyst: TOMMY Transcribe Date/Time: May 29 2023 1:29P Dictated by : LILIA MITCHELL MD This examination was interpreted and the report reviewed and electronically signed by: LILIA MITCHELL MD on May 29 2023 1:33PM [facility] XR Wrist - right 4 Viewson [...] PA/LAT/OBL/SCAPH RT -- RIGHT with 3 (accession [id number]), 4 (accession [id number]) views on 3 (accession [id number]), 4 (accession [id number]) images Comparison: None RESULT: No acute fracture [...] PA/LAT/OBL/SCAPH RT -- RIGHT with 3 (accession [id number]), 4 (accession [id number]) views on 3 (accession [id number]), 4 (accession [id number]) images Comparison: None RESULT: No acute fracture or dislocation. Mild narrowing at multiple interphalangeal joints with small marginal osteophytes. IMPRESSION IMPRESSION: No acute osseous abnormality Multi Disciplined Language Analyst: [facility] Transcribe Date/Time: May 29 2023 1:29P Dictated by : LILIA MITCHELL MD This examination was interpreted and the report reviewed and electronically signed by: LILIA MITCHELL MD on May 29 2023 1:33PM [facility] XR Abdomen Supine and Uprigh ton 05-23-2023 IMPRESSION: Nonobstr uctive bowel gas pattern. Multi Disciplined Language Analyst: [facility] Transcribe Date/Time: May 23 2023 5:22P Dictated by : MADAN ZACARIAS MD This examination was interpreted and the report reviewed and electronically signed by: MADAN ZACARIAS MD on May 23 2023 5:23PM [facility] DIVISION OF RADIOLOGY * * *Final Report* [...] advanced degenerative changes. DIVISION OF RADIOLOGY Provider, Valeria [facility] [place] - 05/23/2023 * * *Final Report* * [...] changes. IMPRESSION IMPRESSION: Nonobstructive bowel gas pattern. Multi Disciplined Language Analyst: TOMMY Transcribe Date/Time: May 23 2023 5:22P Dictated by : MADAN ZACARIAS MD This examination was interpreted and the report reviewed and electronically signed by: MADAN ZACARIAS MD on May 23 2023 5:23PM EST [facility] CBC W Auto Differential pane l (Bld)on 05-22-2023 Basophils (Bld) [#/Vol] 0.06 10*3/uL <0.11 k/uL [facility] Basophils/100 WBC (Bld) 0.5 % [facility] Differential cell count method Nom (Bld) Auto [facility] Eosinophils (Bld) [#/Vol] 0.07 10*3/uL <0.46 k/uL [facility] Eosinophils/100 WBC (Bld) 0.6 % [facility] Erythrocyte distribution width (RBC) [Ratio] 14.2 % 11.5 - 15.0 % [facility] Hematocrit (Bld) [Volume fraction] 44.1 % 39.0 - 51.0 % [facility] Hemoglobin (Bld) [Mass/Vol] 14.4 g/dL 13.0 - 17.0 g/dL [facility] Immature granulocytes (Bld) [#/Vol] 0.04 10*3/uL <0.10 k/uL [facility] Immature granulocytes/100 WBC (Bld) 0.4 % [facility] Lymphocytes (Bld) [#/Vol] 1.10 10*3/uL 1.00 - 4.00 k/uL [facility] Lymphocytes/100 WBC (Bld) 9.8 % [facility] MCH (RBC) [Entitic mass] 29.7 pg 26.0 - 34.0 pg [facility] MCHC (RBC) [Mass/Vol] 32.7 g/dL 30.5 - 36.0 g/dL [facility] MCV (RBC) [Entitic vol] 90.9 fL 80.0 - 100.0 fL [facility] Monocytes (Bld) [#/Vol] 0.54 10*3/uL <0.87 k/uL [facility] Monocytes/100 WBC (Bld) 4.8 % [facility] Neutrophils (Bld) [#/Vol] 9.36 10*3/uL High 1.45 - 7.50 k/uL [facility] Neutrophils/100 WBC (Bld) 83.9 % [facility] Nucleated RBC (Bld) [#/Vol] <0.01 k/uL [facility] Nucleated RBC/100 WBC (Bld) [Ratio] 0.0 /100 WBC [facility] Platelet mean volume (Bld) [Entitic vol] 11.0 fL 9.0 - 12.7 fL [facility] Platelets (Bld) [#/Vol] 195 10*3/uL 150 - 400 k/uL [facility] RBC (Bld) [#/Vol] 4.85 10*6/uL 4.20 - 6.00 m/uL [facility] WBC (Bld) [#/Vol] 11.17 10*3/uL High 3.70 - 11.00 k/uL [facility] HbA1c (Bld)on 05-22-2023 Average glucose Estimated from glycated hemoglobin (Bld) [Mass/Vol] 140 mg/dL [facility] HbA1c (Bld) [Mass fraction] 6.5 % High 4.3 - 5.6 % [facility] No Panel Informationon 05-21 Radiology Study observation (narrative) [facility] XR Chest PA and Lateralon IMPRESSION: Pulmonary vascular congestion. Cardiomegaly Multi Disciplined Language Analyst: PSCB Transcribe Date/Time: May 22 2023 4:06P Dictated by : IVETH SINGH MD This examination was interpreted and the report reviewed and electronically signed by: IVETH SINGH MD on May 22 2023 4:07PM [facility] DIVISION OF RADIOLOGY * * *Final Report* [...] fractures are stable. DIVISION OF RADIOLOGY Provider, [facility] - 05/22/2023 * * *Final Report* * [...] stable. IMPRESSION IMPRESSION: Pulmonary vascular congestion. Cardiomegaly Multi Disciplined Language Analyst: TOMMY Transcribe Date/Time: May 22 2023 4:06P Dictated by : IVETH SINGH MD This examination was interpreted and the report reviewed and electronically signed by: IVETH SINGH MD on May 22 2023 4:07PM EST [facility] XR Chest PA and LateralOrder ed By: Ccf Provider on 05-22-2023 [facility] .Auto Diffon 05-20-2023 Basophil, Absolute 0.0 10 3/mcL Normal 0.0-0.3 [facility] ([place]) Comment on above: Performed By: #### A DIFF, CBC, MG, ANEU, BMP, GFR #### [address] [address] Basophils/100 WBC (Bld) 0.2 % Normal 0.0-2.5 [facility] ([place]) Comment on above: Performed By: #### A DIFF, CBC, MG, ANEU, BMP, GFR #### [address] [address] Eosinophil, Absolute 0.1 10 3/mcL Normal 0.0-0.7 [facility] ([place]) Comment on above: Performed By: #### A DIFF, CBC, MG, ANEU, BMP, GFR #### [address] [address] Eosinophils/100 WBC (Bld) 0.7 % Normal 0.0-6.0 [facility] ([place]) Comment on above: Performed By: #### A DIFF, CBC, MG, ANEU, BMP, GFR #### [address] [address] Lymphocyte, Absolute 1.6 10 3/mcL Normal 0.9-4.3 [facility] ([place]) Comment on above: Performed By: #### A DIFF, CBC, MG, ANEU, BMP, GFR #### [address] [address] Lymphocytes/100 WBC (Bld) 11.8 % Low 20.0-40.0 [facility] ([place]) Comment on above: Performed By: #### A DIFF, CBC, MG, ANEU, BMP, GFR #### [address] [address] Monocyte, Absolute 0.9 10 3/mcL Normal 0.1-1.4 [facility] ([place]) Comment on above: Performed By: #### A DIFF, CBC, MG, ANEU, BMP, GFR #### [address] [address] Monocytes/100 WBC (Bld) 6.8 % Normal 2.0-13.0 [facility] ([place]) Comment on above: Performed By: #### A DIFF, CBC, MG, ANEU, BMP, GFR #### [address] [address] Neutrophils/100 WBC (Bld) 80.5 % High 50.0-75.0 [facility] ([place]) Comment on above: Performed By: #### A DIFF, CBC, MG, ANEU, BMP, GFR #### [address] [address] .GFRon 05-20-2023 GFR >60 Normal [facility] [facility] ([place]) Comment on above: Result Comment: GFR Population [...] DIFF, CBC, MG, ANEU, BMP, GFR #### [address] [address] GFR Non- >60 Normal [facility] ([place]) Comment on above: Result Comment: GFR Population [...] DIFF, CBC, MG, ANEU, BMP, GFR #### [address] [address] .NEUABSon 05-20-2023 Neutrophil, Absolute 10.9 10 3/mcL High 2.3-8.1 [facility] ([place]) Comment on above: Performed By: #### A DIFF, CBC, MG, ANEU, BMP, GFR #### [address] [address] BMPon 05-20-2023 BUN/Creatinine Ratio 33.7 ratio High 10.0-22.0 [facility] ([place]) Comment on above: Performed By: #### A DIFF, CBC, MG, ANEU, BMP, GFR #### [address] [address] Calcium [Mass/Vol] 9.0 mg/dL Normal 8.7-10.4 [facility] ([place]) Comment on above: Performed By: #### A DIFF, CBC, MG, ANEU, BMP, GFR #### [address] [address] Chloride [Moles/Vol] 105 mmol/L Normal 98-110 [facility] ([place]) Comment on above: Performed By: #### A DIFF, CBC, MG, ANEU, BMP, GFR #### [address] [address] CO2 [Moles/Vol] 26 mmol/L Normal 22-32 [facility] ([place]) Comment on above: Performed By: #### A DIFF, CBC, MG, ANEU, BMP, GFR #### [address] [address] Creatinine [Mass/Vol] 0.95 mg/dL Normal 0.60-1.40 [facility] ([place]) Comment on above: Performed By: #### A DIFF, CBC, MG, ANEU, BMP, GFR #### [place] [address] Electrolyte Balance 11.0 mEq/L Normal 4.0-15.0 [facility] ([place]) Comment on above: Performed By: #### A DIFF, CBC, MG, ANEU, BMP, GFR #### [place] [address] Glucose [Mass/Vol] 144 mg/dL High 82-115 [facility] ([place]) Comment on above: Performed By: #### A DIFF, CBC, MG, ANEU, BMP, GFR #### [place] [address] Potassium [Moles/Vol] 4.1 mmol/L Normal 3.5-5.0 [facility] ([place]) Comment on above: Result Comment: Spec imen slightly hemolyzed. Performed By: #### A DIFF, CBC, MG, ANEU, BMP, GFR #### [place] [address] Sodium [Moles/Vol] 142 mmol/L Normal 136-145 [facility] ([place]) Comment on above: Performed By: #### A DIFF, CBC, MG, ANEU, BMP, GFR #### [place] [address] Urea nitrogen [Mass/Vol] 32.0 mg/dL High 8.0-22.0 [facility] ([place]) Comment on above: Performed By: #### A DIFF, CBC, MG, ANEU, BMP, GFR #### [place] [id number] CBCon 05-20-2023 Erythrocyte distribution width (RBC) [Ratio] 15.1 % Normal 11.5-15.5 [facility] ([place]) Comment on above: Performed By: #### A DIFF, CBC, MG, ANEU, BMP, GFR #### [place] [id number] Hematocrit (Bld) [Volume fraction] 40.8 % Normal 40.0-52.0 [facility] ([place]) Comment on above: Performed By: #### A DIFF, CBC, MG, ANEU, BMP, GFR #### [address] [address] Hgb 13.4 G/dL Normal 13.0-17.5 [facility] ([place]) Comment on above: Performed By: #### A DIFF, CBC, MG, ANEU, BMP, GFR #### [place] [address] MCH (RBC) [Entitic mass] 29.2 pg Normal 27.0-33.0 [facility] ([place]) Comment on above: Performed By: #### A DIFF, CBC, MG, ANEU, BMP, GFR #### [place] [address] MCHC 32.8 G/dL Normal 32.0-36.0 [facility] ([place]) Comment on above: Performed By: #### A DIFF, CBC, MG, ANEU, BMP, GFR #### [place] [address] MCV (RBC) [Entitic vol] 88.9 fL Normal 81.0-100.0 [facility] ([place]) Comment on above: Performed By: #### A DIFF, CBC, MG, ANEU, BMP, GFR #### [place] [id number] Platelet 195 10 3/mcL Normal 150-450 [facility] ([place]) Comment on above: Performed By: #### A DIFF, CBC, MG, ANEU, BMP, GFR #### [place] [address] Platelet mean volume (Bld) [Entitic vol] 9.3 fL Normal 6.4-10.5 [facility] ([place]) Comment on above: Performed By: #### A DIFF, CBC, MG, ANEU, BMP, GFR #### [place] [address] RBC 4.59 10 6/mcL Normal 4.50-6.00 [facility] ([place]) Comment on above: Performed By: #### A DIFF, CBC, MG, ANEU, BMP, GFR #### [place] [id number] WBC 13.5 10 3/mcL High 4.5-10.8 [facility] ([place]) Comment on above: Performed By: #### A DIFF, CBC, MG, ANEU, BMP, GFR #### [place] [id number] [place] [address] LABORATORYOrdered By: Bebeto Cruz on 05-20-2023 Blood Glucose Testing Reason Routine (05/20/23 11:47 AM) [employer] Work Phone: Glucose [Mass/Vol] 217 mg/dL High 82 - 115 mg/dL [employer] Work Phone: Blood Glucose Testing Reason Routine (05/20/23 9:40 AM) [employer] Work Phone: Glucose [Mass/Vol] 149 mg/dL High 82 - 115 mg/dL [employer] Work Phone: Blood Glucose Testing Reason Routine (05/20/23 8:07 AM) [employer] Work Phone: Glucose [Mass/Vol] 149 mg/dL High 82 - 115 mg/dL [employer] Work Phone: LABORATORYOrdered By: SYSTEM SYSTEM on 05-20-2023 Basophils (Bld) [#/Vol] 0.0 103/mcL Normal 0.0 - 0.3 10^3/mcL Workflow SS Basophils/100 WBC (Bld) 0.2 % Normal 0.0 - 2.5 % Workflow SS Calcium [Mass/Vol] 9.0 mg/dL Normal 8.7 - 10. 4 mg/dL ADM SS Chloride [Moles/Vol] 105 mmol/L Normal 98 - 11 0 mEq/L AH ADM SS CO2 [Moles/Vol] 26 mmol/L Normal 22 - 32 mEq/L ADM SS Creatinine [Mass/Vol] 0.95 mg/dL Normal 0.60 - 1.40 mg/dL ADM SS Electrolyte Balance 11.0 mEq/L Normal 4.0 - 15 .0 mEq/L ADM SS Eosinophils (Bld) [#/Vol] 0.1 103/mcL Normal 0.0 - 0.7 10^3/mcL AH Workflow SS Eosinophils/100 WBC (Bld) 0.7 % [...] 144 mg/dL High 82 - 115 mg/dL ADM SS Hematocrit (Bld) [Volume fraction] 40.8 % Normal 40.0 - 52.0 % Workflow SS Hemoglobin (Bld) [Mass/Vol] 13.4 G/dL [...] 88.9 fL Normal 81.0 - 100.0 fL Workflow SS Monocytes (Bld) [#/Vol] 0.9 103/mcL [...] 4.1 mmol/L Normal 3.5 - 5.0 mEq/L ADM SS Comment on above: Result Comment: Spec imen slightly hemolyzed. RBC (Bld) [#/Vol] 4.59 106/mcL Normal 4.50 - 6.00 10^6/mcL AH Workflow SS Sodium [Moles/Vol] 142 mmol/L Normal 136 - 145 mEq/L ADM SS Urea nitrogen [Mass/Vol] 32.0 mg/dL High 8.0 - 22.0 mg/dL AH ADM SS Urea nitrogen/Creatinine [Mass ratio] 33.7 ratio High 10.0 - 22.0 ratio AH ADM SS WBC (Bld) [#/Vol] 13.5 103/mcL High 4.5 - 10.8 10^3/mcL AH Workflow SS XR ABDOMEN APon 05-20-2023 XR [...] 9:47:55 AM Ordering Provider: JESUS MANUEL MELENDREZ [facility] ([place]) XR ABDOMEN AP ORIGINAL EXAMINATION: ONE SUPINE [...] Date: 05/20/2023 12:35:35 AM Ordering Provider: HA MCCALLUM [facility] ([place]) .Auto Diffon 05-15-2023 Basophil, Absolute 0.0 10 3/mcL Normal 0.0-0.3 [facility] ([place]) Comment on above: Performed By: #### A DIFF, CBC, MG, ANEU, BMP, GFR #### [address] [address] Basophils/100 WBC (Bld) 0.4 % Normal 0.0-2.5 [facility] ([place]) Comment on above: Performed By: #### A DIFF, CBC, MG, ANEU, BMP, GFR #### [address] [address] Eosinophil, Absolute 0.1 10 3/mcL Normal 0.0-0.7 [facility] ([place]) Comment on above: Performed By: #### A DIFF, CBC, MG, ANEU, BMP, GFR #### [address] [address] Eosinophils/100 WBC (Bld) 0.8 % Normal 0.0-6.0 [facility] ([place]) Comment on above: Performed By: #### A DIFF, CBC, MG, ANEU, BMP, GFR #### [address] [address] Lymphocyte, Absolute 1.9 10 3/mcL Normal 0.9-4.3 [facility] ([place]) Comment on above: Performed By: #### A DIFF, CBC, MG, ANEU, BMP, GFR #### [address] [address] Lymphocytes/100 WBC (Bld) 17.3 % Low 20.0-40.0 [facility] ([place]) Comment on above: Performed By: #### A DIFF, CBC, MG, ANEU, BMP, GFR #### [address] [address] Monocyte, Absolute 1.2 10 3/mcL Normal 0.1-1.4 [facility] ([place]) Comment on above: Performed By: #### A DIFF, CBC, MG, ANEU, BMP, GFR #### [address] [address] Monocytes/100 WBC (Bld) 11.2 % Normal 2.0-13.0 [facility] ([place]) Comment on above: Performed By: #### A DIFF, CBC, MG, ANEU, BMP, GFR #### [address] [address] Neutrophils/100 WBC (Bld) 70.3 % Normal 50.0-75.0 [facility] ([place]) Comment on above: Performed By: #### A DIFF, CBC, MG, ANEU, BMP, GFR #### [address] [address] .GFRon 05-15-2023 GFR >60 Normal [facility] ([place]) Comment on above: Result Comment: GFR Population [...] DIFF, CBC, MG, ANEU, BMP, GFR #### [address] [address] GFR Non- >60 Normal [facility] ([place]) Comment on above: Result Comment: GFR Population [...] DIFF, CBC, MG, ANEU, BMP, GFR #### [address] [address] .NEUABSon 05-15-2023 Neutrophil, Absolute 7.7 10 3/mcL Normal 2.3-8.1 [facility] ([place]) Comment on above: Performed By: #### A DIFF, CBC, MG, ANEU, BMP, GFR #### [address] [address] BMPon 05-15-2023 BUN/Creatinine Ratio 19.4 ratio Normal 10.0-22.0 [facility] ([place]) Comment on above: Performed By: #### A DIFF, CBC, MG, ANEU, BMP, GFR #### [place] [address] Calcium [Mass/Vol] 9.3 mg/dL Normal 8.7-10.4 [facility] ([place]) Comment on above: Performed By: #### A DIFF, CBC, MG, ANEU, BMP, GFR #### [place] [address] Chloride [Moles/Vol] 105 mmol/L Normal 98-110 [facility] ([place]) Comment on above: Performed By: #### A DIFF, CBC, MG, ANEU, BMP, GFR #### [place] [address] CO2 [Moles/Vol] 33 mmol/L High 22-32 [facility] ([place]) Comment on above: Performed By: #### A DIFF, CBC, MG, ANEU, BMP, GFR #### [address] [address] Creatinine [Mass/Vol] 1.08 mg/dL Normal 0.60-1.40 [facility] ([place]) Comment on above: Performed By: #### A DIFF, CBC, MG, ANEU, BMP, GFR #### [address] [address] Electrolyte Balance 5.0 mEq/L Normal 4.0-15.0 [facility] ([place]) Comment on above: Performed By: #### A DIFF, CBC, MG, ANEU, BMP, GFR #### [address] [address] Glucose [Mass/Vol] 121 mg/dL High 82-115 [facility] ([place]) Comment on above: Performed By: #### A DIFF, CBC, MG, ANEU, BMP, GFR #### [place] [id number] Potassium [Moles/Vol] 4.3 mmol/L Normal 3.5-5.0 [facility] ([place]) Comment on above: Performed By: #### A DIFF, CBC, MG, ANEU, BMP, GFR #### [place] [id number] Sodium [Moles/Vol] 143 mmol/L Normal 136-145 [facility] ([place]) Comment on above: Performed By: #### A DIFF, CBC, MG, ANEU, BMP, GFR #### [place] [address] Urea nitrogen [Mass/Vol] 21.0 mg/dL Normal 8.0-22.0 [facility] ([place]) Comment on above: Performed By: #### A DIFF, CBC, MG, ANEU, BMP, GFR #### [place] [address] CBCon 05-15-2023 Erythrocyte distribution width (RBC) [Ratio] 15.4 % Normal 11.5-15.5 [facility] ([place]) Comment on above: Performed By: #### A DIFF, CBC, MG, ANEU, BMP, GFR #### [place] [address] Hematocrit (Bld) [Volume fraction] 40.7 % Normal 40.0-52.0 [facility] ([place]) Comment on above: Performed By: #### A DIFF, CBC, MG, ANEU, BMP, GFR #### [place] [id number] Hgb 13.6 G/dL Normal 13.0-17.5 [facility] ([place]) Comment on above: Performed By: #### A DIFF, CBC, MG, ANEU, BMP, GFR #### [place] [address] MCH (RBC) [Entitic mass] 29.9 pg Normal 27.0-33.0 [facility] ([place]) Comment on above: Performed By: #### A DIFF, CBC, MG, ANEU, BMP, GFR #### [place] [address] MCHC 33.4 G/dL Normal 32.0-36.0 [facility] ([place]) Comment on above: Performed By: #### A DIFF, CBC, MG, ANEU, BMP, GFR #### [place] [address] MCV (RBC) [Entitic vol] 89.6 fL Normal 81.0-100.0 [facility] ([place]) Comment on above: Performed By: #### A DIFF, CBC, MG, ANEU, BMP, GFR #### [place] [address] Platelet 222 10 3/mcL Normal 150-450 [facility] ([place]) Comment on above: Performed By: #### A DIFF, CBC, MG, ANEU, BMP, GFR #### [place] [address] Platelet mean volume (Bld) [Entitic vol] 9.5 fL Normal 6.4-10.5 [facility] ([place]) Comment on above: Performed By: #### A DIFF, CBC, MG, ANEU, BMP, GFR #### [place] [address] RBC 4.54 10 6/mcL Normal 4.50-6.00 [facility] ([place]) Comment on above: Performed By: #### A DIFF, CBC, MG, ANEU, BMP, GFR #### [place] [address] WBC 10.9 10 3/mcL High 4.5-10.8 [facility] ([place]) Comment on above: Performed By: #### A DIFF, CBC, MG, ANEU, BMP, GFR #### [place] [address] LABORATORYOrdered By: SYSTEM SYSTEM on 05-15-2023 Basophils (Bld) [#/Vol] 0.0 103/mcL Normal 0.0 - 0.3 10^3/mcL AH Workflow SS Basophils/100 WBC (Bld) 0.4 % Normal 0.0 - 2.5 % AH Workflow SS Calcium [Mass/Vol] 9.3 mg/dL Normal [...] (S/P/Bld) [Vol rate/Area] ml/min/1.73sqm Invalid Interpretation Code 99tests Chemistry S Comment on above: Interpretive Data: [...] (S/P/Bld) [Vol rate/Area] ml/min/1.73sqm Invalid Interpretation Code 99tests Chemistry S Comment on above: Interpretive Data: [...] 121 mg/dL High 82 - 115 mg/dL AH ADM SS Hematocrit (Bld) [Volume fraction] 40.7 % Normal 40.0 - 52.0 % AH Workflow SS Hemoglobin (Bld) [Mass/Vol] 13.6 G/dL Normal 13.0 - 17.5 G/dL AH Workflow SS Lymphocytes (Bld) [#/Vol] 1.9 103/mcL [...] 4.54 106/mcL Normal 4.50 - 6.00 10^6/mcL Workflow SS Sodium [Moles/Vol] 143 mmol/L Normal 136 - 145 mEq/L ADM SS Urea nitrogen [Mass/Vol] 21.0 mg/dL Normal 8.0 - 22.0 mg/dL ADM SS Urea nitrogen/Creatinine [Mass ratio] 19.4 ratio Normal 10.0 - 22.0 ratio AH ADM SS WBC (Bld) [#/Vol] 10.9 103/mcL High 4.5 - 10.8 10^3/mcL Workflow SS LABORATORYOrdered By: Isabela George on 05-13-2023 Time of Stated Blood Glucose [id number] [employer] Work Phone: .Auto Diffon 05-12-2023 Basophil, Absolute 0.0 10 3/mcL Normal 0.0-0.3 [facility] ([place]) Comment on above: Performed By: #### Scott Lucero, GFR, BMP #### [address] [address] Basophils/100 WBC (Bld) 0.7 % Normal 0.0-2.5 [facility] ([place]) Comment on above: Performed By: #### Scott Lucero, GFR, BMP #### [address] [address] Eosinophil, Absolute 0.1 10 3/mcL Normal 0.0-0.7 [facility] ([place]) Comment on above: Performed By: #### Scott G, GFR, BMP #### [address] [address] Eosinophils/100 WBC (Bld) 1.2 % Normal 0.0-6.0 [facility] ([place]) Comment on above: Performed By: #### Scott G, GFR, BMP #### [address] [address] Lymphocyte, Absolute 1.4 10 3/mcL Normal 0.9-4.3 [facility] ([place]) Comment on above: Performed By: #### Scott G, GFR, BMP #### [address] [address] Lymphocytes/100 WBC (Bld) 23.4 % Normal 20.0-40.0 [facility] ([place]) Comment on above: Performed By: #### M Nic, GFR, BMP #### [address] [address] Monocyte, Absolute 0.8 10 3/mcL Normal 0.1-1.4 [facility] ([place]) Comment on above: Performed By: #### Scott Lucero, GFR, BMP #### [address] [address] Monocytes/100 WBC (Bld) 13.0 % Normal 2.0-13.0 [facility] ([place]) Comment on above: Performed By: #### Scott Lucero, GFR, BMP #### [address] [address] Neutrophils/100 WBC (Bld) 61.7 % Normal 50.0-75.0 [facility] ([place]) Comment on above: Performed By: #### Scott G, GFR, BMP #### [address] [address] .GFRon 05-12-2023 GFR >60 Normal [facility] ([place]) Comment on above: Result Comment: GFR Population [...] By: #### M G, GFR, BMP #### [address] [address] GFR Non- >60 Normal [facility] ([place]) Comment on above: Result Comment: GFR Population [...] By: #### Scott Lucero, GFR, BMP #### [address] [address] .NEUABSon 05-12-2023 Neutrophil, Absolute 3.6 10 3/mcL Normal 2.3-8.1 [facility] ([place]) Comment on above: Performed By: #### Scott Lucero, GFR, BMP #### [address] [address] BMPon 05-12-2023 BUN/Creatinine Ratio 25.0 ratio High 10.0-22.0 [facility] ([place]) Comment on above: Performed By: #### Scott Lucero, GFR, BMP #### [address] [address] Calcium [Mass/Vol] 8.4 mg/dL Low 8.7-10.4 [facility] ([place]) Comment on above: Performed By: #### Scott Lucero, GFR, BMP #### [address] [address] Chloride [Moles/Vol] 109 mmol/L Normal 98-110 [facility] ([place]) Comment on above: Performed By: #### Scott G, GFR, BMP #### [address] [address] CO2 [Moles/Vol] 29 mmol/L Normal 22-32 [facility] ([place]) Comment on above: Performed By: #### Scott G, GFR, BMP #### [address] [address] Creatinine [Mass/Vol] 0.96 mg/dL Normal 0.60-1.40 [facility] ([place]) Comment on above: Performed By: #### M G, GFR, BMP #### [address] [address] Electrolyte Balance 3.0 mEq/L Low 4.0-15.0 [facility] ([place]) Comment on above: Performed By: #### M G, GFR, BMP #### [address] [address] Glucose [Mass/Vol] 71 mg/dL Low 82-115 [facility] ([place]) Comment on above: Performed By: #### M G, GFR, BMP #### [address] [address] Potassium [Moles/Vol] 4.1 mmol/L Normal 3.5-5.0 [facility] ([place]) Comment on above: Performed By: #### M G, GFR, BMP #### [address] [address] Sodium [Moles/Vol] 141 mmol/L Normal 136-145 [facility] ([place]) Comment on above: Performed By: #### M G, GFR, BMP #### [address] [address] Urea nitrogen [Mass/Vol] 24.0 mg/dL High 8.0-22.0 [facility] ([place]) Comment on above: Performed By: #### M G, GFR, BMP #### [address] [address] CBCon 05-12-2023 Erythrocyte distribution width (RBC) [Ratio] 15.3 % Normal 11.5-15.5 [facility] ([place]) Comment on above: Performed By: #### M G, GFR, BMP #### [address] [address] Hematocrit (Bld) [Volume fraction] 35.6 % Low 40.0-52.0 [facility] ([place]) Comment on above: Performed By: #### M G, GFR, BMP #### [address] [address] Hgb 12.2 G/dL Low 13.0-17.5 [facility] ([place]) Comment on above: Performed By: #### M Nic, GFR, BMP #### [place] [address] MCH (RBC) [Entitic mass] 30.6 pg Normal 27.0-33.0 [facility] ([place]) Comment on above: Performed By: #### Scott Lucero, GFR, BMP #### [place] [address] MCHC 34.2 G/dL Normal 32.0-36.0 [facility] ([place]) Comment on above: Performed By: #### Scott Lucero, GFR, BMP #### [place] [address] MCV (RBC) [Entitic vol] 89.4 fL Normal 81.0-100.0 [facility] ([place]) Comment on above: Performed By: #### Scott Lucero, GFR, BMP #### [place] [address] Platelet 209 10 3/mcL Normal 150-450 [facility] ([place]) Comment on above: Performed By: #### Scott Lucero, GFR, BMP #### [place] [address] Platelet mean volume (Bld) [Entitic vol] 9.4 fL Normal 6.4-10.5 [facility] ([place]) Comment on above: Performed By: #### Scott Lucero, GFR, BMP #### [place] [address] RBC 3.99 10 6/mcL Low 4.50-6.00 [facility] ([place]) Comment on above: Performed By: #### Scott G, GFR, BMP #### [place] [address] WBC 5.8 10 3/mcL Normal 4.5-10.8 [facility] ([place]) Comment on above: Performed By: #### Scott Lucero, GFR, BMP #### [place] [address] LABORATORYOrdered By: SYSTEM SYSTEM on 05-12-2023 Basophils (Bld) [#/Vol] 0.0 103/mcL Normal 0.0 - 0.3 10^3/mcL Workflow SS Basophils/100 WBC (Bld) 0.7 % Normal 0.0 - 2.5 % Workflow SS Calcium [Mass/Vol] 8.4 mg/dL Low 8.7 - 10. 4 mg/dL ADM SS Chloride [Moles/Vol] 109 mmol/L Normal [...] (S/P/Bld) [Vol rate/Area] ml/min/1.73sqm Invalid Interpretation Code 99tests Chemistry S Comment on above: Interpretive Data: [...] (S/P/Bld) [Vol rate/Area] ml/min/1.73sqm Invalid Interpretation Code 99tests Chemistry S Comment on above: Interpretive Data: [...] 71 mg/dL Low 82 - 115 mg/dL AH ADM SS Hematocrit (Bld) [Volume fraction] 35.6 [...] 05/11/2023 9:31:37 AM Ordering Provider: ALLISON Garsia [facility] ([place]) CT ABDOMEN/PELVIS W/O CONTRA STon 05-09-2023 CT [...] Date: 05/09/2023 1:10:22 PM Ordering Provider: MALIA Garsia [facility] ([place]) XR ABDOMEN APon 05-09-2023 XR ABDOMEN AP [...] 05/09/2023 9:53:10 AM Ordering Provider: MALIA Garsia [facility] ([place]) .GFRon 05-04-2023 GFR Non- >60 Normal [facility] ([place]) Comment on above: Result Comment: GFR Population [...] DIFF, CBC, MG, ANEU, BMP, GFR #### [address] [address] GFR >60 Normal [facility] ([place]) Comment on above: Result Comment: GFR Population [...] DIFF, CBC, MG, ANEU, BMP, GFR #### [address] [address] BMPon 05-04-2023 BUN/Creatinine Ratio 23.7 ratio High 10.0-22.0 [facility] ([place]) Comment on above: Performed By: #### A DIFF, CBC, MG, ANEU, BMP, GFR #### [address] [address] Calcium [Mass/Vol] 9.0 mg/dL Normal 8.7-10.4 [facility] ([place]) Comment on above: Performed By: #### A DIFF, CBC, MG, ANEU, BMP, GFR #### [address] [address] Chloride [Moles/Vol] 107 mmol/L Normal 98-110 [facility] ([place]) Comment on above: Performed By: #### A DIFF, CBC, MG, ANEU, BMP, GFR #### [address] [address] CO2 [Moles/Vol] 26 mmol/L Normal 22-32 [facility] ([place]) Comment on above: Performed By: #### A DIFF, CBC, MG, ANEU, BMP, GFR #### [address] [address] Creatinine [Mass/Vol] 0.76 mg/dL Normal 0.60-1.40 [facility] ([place]) Comment on above: Performed By: #### A DIFF, CBC, MG, ANEU, BMP, GFR #### [address] [address] Electrolyte Balance 8.0 mEq/L Normal 4.0-15.0 [facility] ([place]) Comment on above: Performed By: #### A DIFF, CBC, MG, ANEU, BMP, GFR #### [address] [address] Glucose [Mass/Vol] 132 mg/dL High 82-115 [facility] ([place]) Comment on above: Performed By: #### A DIFF, CBC, MG, ANEU, BMP, GFR #### [address] [address] Potassium [Moles/Vol] 4.4 mmol/L Normal 3.5-5.0 [facility] ([place]) Comment on above: Performed By: #### A DIFF, CBC, MG, ANEU, BMP, GFR #### [address] [address] Sodium [Moles/Vol] 141 mmol/L Normal 136-145 [facility] ([place]) Comment on above: Performed By: #### A DIFF, CBC, MG, ANEU, BMP, GFR #### [address] [address] Urea nitrogen [Mass/Vol] 18.0 mg/dL Normal 8.0-22.0 [facility] ([place]) Comment on above: Performed By: #### A DIFF, CBC, MG, ANEU, BMP, GFR #### [address] [address] LABORATORYOrdered By: Rosette Salmon on 05-04-2023 Natriuretic peptide.B prohormone N-Terminal [Mass/Vol] 442 pg/mL Normal 0 - 900 pg/mL Auto Chem SS Comment on above: Interpretive Data: N T-proBNP results of less than 300 pg/mL effectively rules out acute congestive heart failure with 99% negative predictive value. PBNPon 05-04-2023 Natriuretic peptide B (Bld) [Mass/Vol] 442 pg/mL Normal 0-900 [facility] ([place]) Comment on above: Result Comment: NT-p roBNP results of less than 300 pg/mL effectively rules out acute congestive heart failure with 99% negative predictive value. Performed By: #### A DIFF, CBC, MG, ANEU, BMP, GFR #### [address] [address] LABORATORYOrdered By: Magda Guy on 05-01-2023 Glucose [Mass/Vol] 192 mg/dL [facility] Work Phone: .Auto Diffon 04-28-2023 Basophil, Absolute 0.1 10 3/mcL Normal 0.0-0.3 [facility] ([place]) Comment on above: Performed By: #### M G, GFR, BMP #### [address] [address] Basophils/100 WBC (Bld) 0.6 % Normal 0.0-2.5 [facility] ([place]) Comment on above: Performed By: #### Scott G, GFR, BMP #### [address] [address] Eosinophil, Absolute 0.1 10 3/mcL Normal 0.0-0.7 [facility] ([place]) Comment on above: Performed By: #### Scott G, GFR, BMP #### [address] [address] Eosinophils/100 WBC (Bld) 0.6 % Normal 0.0-6.0 [facility] ([place]) Comment on above: Performed By: #### Scott G, GFR, BMP #### [address] [address] Lymphocyte, Absolute 1.2 10 3/mcL Normal 0.9-4.3 [facility] ([place]) Comment on above: Performed By: #### Scott Lucero, GFR, BMP #### [address] [address] Lymphocytes/100 WBC (Bld) 12.2 % Low 20.0-40.0 [facility] ([place]) Comment on above: Performed By: #### Scott Lucero, GFR, BMP #### [address] [address] Monocyte, Absolute 1.0 10 3/mcL Normal 0.1-1.4 [facility] ([place]) Comment on above: Performed By: #### Scott G, GFR, BMP #### [address] [address] Monocytes/100 WBC (Bld) 10.0 % Normal 2.0-13.0 [facility] ([place]) Comment on above: Performed By: #### Scott G, GFR, BMP #### [address] [address] Neutrophils/100 WBC (Bld) 76.6 % High 50.0-75.0 [facility] ([place]) Comment on above: Performed By: #### Scott G, GFR, BMP #### [address] [address] .GFRon 04-28-2023 GFR >60 Normal [facility] ([place]) Comment on above: Result Comment: [...] By: #### Scott Lucero, GFR, BMP #### [address] [address] GFR Non- >60 Normal [facility] ([place]) Comment on above: Result Comment: GFR Population [...] By: #### Scott Lucero, GFR, BMP #### [address] [address] .NEUABSon 04-28-2023 Neutrophil, Absolute 7.5 10 3/mcL Normal 2.3-8.1 [facility] ([place]) Comment on above: Performed By: ###Karol Lucero, GFR, BMP #### [address] [address] BMPon 04-28-2023 BUN/Creatinine Ratio 30.0 ratio High 10.0-22.0 [facility] ([place]) Comment on above: Performed By: #### Scott Lucero, GFR, BMP #### [address] [address] Calcium [Mass/Vol] 8.7 mg/dL Normal 8.7-10.4 [facility] ([place]) Comment on above: Performed By: #### Scott Lucero, GFR, BMP #### [address] [address] Chloride [Moles/Vol] 101 mmol/L Normal 98-110 [facility] ([place]) Comment on above: Performed By: #### Scott Lucero, GFR, BMP #### [address] [address] CO2 [Moles/Vol] 32 mmol/L Normal 22-32 [facility] ([place]) Comment on above: Performed By: #### Scott Lucero, GFR, BMP #### [address] [address] Creatinine [Mass/Vol] 0.70 mg/dL Normal 0.60-1.40 [facility] ([place]) Comment on above: Performed By: #### Scott Lucero, GFR, BMP #### [address] [address] Electrolyte Balance 6.0 mEq/L Normal 4.0-15.0 [facility] ([place]) Comment on above: Performed By: #### Scott Lucero, GFR, BMP #### [address] [address] Glucose [Mass/Vol] 248 mg/dL High 82-115 [facility] ([place]) Comment on above: Performed By: #### Scott Lucero, GFR, BMP #### [address] [address] Potassium [Moles/Vol] 4.1 mmol/L Normal 3.5-5.0 [facility] ([place]) Comment on above: Result Comment: Spec imen slightly hemolyzed. Performed By: #### Scott Lucero, GFR, BMP #### [address] [address] Sodium [Moles/Vol] 139 mmol/L Normal 136-145 [facility] ([place]) Comment on above: Performed By: #### Scott Lucero, GFR, BMP #### [place] [address] Urea nitrogen [Mass/Vol] 21.0 mg/dL Normal 8.0-22.0 [facility] ([place]) Comment on above: Performed By: #### M G, GFR, BMP #### [place] [address] CBCon 04-28-2023 Erythrocyte distribution width (RBC) [Ratio] 14.3 % Normal 11.5-15.5 [facility] ([place]) Comment on above: Performed By: #### M G, GFR, BMP #### [place] [address] Hematocrit (Bld) [Volume fraction] 38.6 % Low 40.0-52.0 [facility] ([place]) Comment on above: Performed By: #### M G, GFR, BMP #### [place] [address] Hgb 12.9 G/dL Low 13.0-17.5 [facility] ([place]) Comment on above: Performed By: #### M G, GFR, BMP #### [place] [address] MCH (RBC) [Entitic mass] 30.0 pg Normal 27.0-33.0 [facility] ([place]) Comment on above: Performed By: #### M G, GFR, BMP #### [place] [address] MCHC 33.5 G/dL Normal 32.0-36.0 [facility] ([place]) Comment on above: Performed By: #### M G, GFR, BMP #### [place] [address] MCV (RBC) [Entitic vol] 89.6 fL Normal 81.0-100.0 [facility] ([place]) Comment on above: Performed By: #### M G, GFR, BMP #### [place] [address] Platelet 250 10 3/mcL Normal 150-450 [facility] ([place]) Comment on above: Performed By: #### M G, GFR, BMP #### [address] [address] Platelet mean volume (Bld) [Entitic vol] 9.6 fL Normal 6.4-10.5 [facility] ([place]) Comment on above: Performed By: #### M G, GFR, BMP #### [address] [address] RBC 4.31 10 6/mcL Low 4.50-6.00 [facility] ([place]) Comment on above: Performed By: #### M G, GFR, BMP #### [address] [address] WBC 9.8 10 3/mcL Normal 4.5-10.8 [facility] ([place]) Comment on above: Performed By: #### Scott G, GFR, BMP #### [address] [address] .GFRon 04-27-2023 GFR >60 Normal [facility] ([place]) Comment on above: Result Comment: GFR Population [...] By: #### M G, GFR, BMP #### [place] [address] GFR Non- >60 Normal [facility] ([place]) Comment on above: Result Comment: GFR Population [...] mL/min/1.73 square meters Performed By: #### M Nic, GFR, BMP #### [address] [address] BMPon 04-27-2023 BUN/Creatinine Ratio 27.1 ratio High 10.0-22.0 [facility] ([place]) Comment on above: Performed By: #### Scott Lucero, GFR, BMP #### [address] [address] Calcium [Mass/Vol] 8.2 mg/dL Low 8.7-10.4 [facility] ([place]) Comment on above: Performed By: #### Scott Lucero, GFR, BMP #### [address] [address] Chloride [Moles/Vol] 104 mmol/L Normal 98-110 [facility] ([place]) Comment on above: Performed By: #### Scott Lucero, GFR, BMP #### [address] [address] CO2 [Moles/Vol] 29 mmol/L Normal 22-32 [facility] ([place]) Comment on above: Performed By: #### Scott Lucero, GFR, BMP #### [address] [address] Creatinine [Mass/Vol] 0.70 mg/dL Normal 0.60-1.40 [facility] ([place]) Comment on above: Performed By: #### Scott Lucero, GFR, BMP #### [address] [address] Electrolyte Balance 8.0 mEq/L Normal 4.0-15.0 [facility] ([place]) Comment on above: Performed By: #### Scott Lucero, GFR, BMP #### [address] [address] Glucose [Mass/Vol] 213 mg/dL High 82-115 [facility] ([place]) Comment on above: Performed By: #### Scott Lucero, GFR, BMP #### [facility] [address] [place] [address] Potassium [Moles/Vol] 3.7 mmol/L Normal 3.5-5.0 [facility] ([place]) Comment on above: Result Comment: Spec imen slightly hemolyzed. Performed By: #### Scott Lucero, GFR, BMP #### [facility] [address] [place] [address] Sodium [Moles/Vol] 141 mmol/L Normal 136-145 [facility] ([place]) Comment on above: Performed By: #### Scott Lucero, GFR, BMP #### [facility] [address] [place] [address] Urea nitrogen [Mass/Vol] 19.0 mg/dL Normal 8.0-22.0 [facility] ([place]) Comment on above: Performed By: #### Scott Lucero, GFR, BMP #### [facility] [address] [place] [address] LABORATORYOrdered By: Abel weinstein on 04-27-2023 Blood [...] (S/P/Bld) [Vol rate/Area] ml/min/1.73sqm Invalid Interpretation Code 99tests Chemistry S Comment on above: Interpretive Data: [...] (S/P/Bld) [Vol rate/Area] ml/min/1.73sqm Invalid Interpretation Code 99tests Chemistry S Comment on above: Interpretive Data: [...] 213 mg/dL High 82 - 115 mg/dL AH ADM SS Magnesium [Mass/Vol] 1.9 mg/dL Normal 1.6 - 2 .4 mg/dL AH ADM SS Potassium [Moles/Vol] 3.7 mmol/L Normal 3.5 - 5.0 mEq/L AH ADM SS Comment on above: Result Comment: Spec imen slightly hemolyzed. Sodium [Moles/Vol] 141 mmol/L Normal 136 - 145 mEq/L AH ADM SS Urea nitrogen [Mass/Vol] 19.0 mg/dL Normal 8.0 - 22.0 mg/dL AH ADM SS Urea nitrogen/Creatinine [Mass ratio] 27.1 ratio High 10.0 - 22.0 ratio AH ADM SS MGon 04-27-2023 Magnesium [Mass/Vol] 1.9 mg/dL Normal 1.6-2.4 [facility] ([place]) Comment on above: Performed By: #### M G, GFR, BMP #### [place] [address] XR CHEST 1 VIEWon 04-27-2023 XR CHEST [...] 04/27/2023 10:19:36 AM Ordering Provider: URMILA Garsia [facility] ([place]) .Auto Diffon 04-26-2023 Basophil, Absolute 0.0 10 3/mcL Normal 0.0-0.3 [facility] ([place]) Comment on above: Performed By: #### M G, GFR, BMP #### [address] [address] Basophils/100 WBC (Bld) 0.4 % Normal 0.0-2.5 [facility] ([place]) Comment on above: Performed By: #### M G, GFR, BMP #### [address] [address] Eosinophil, Absolute 0.1 10 3/mcL Normal 0.0-0.7 [facility] ([place]) Comment on above: Performed By: #### M G, GFR, BMP #### [address] [address] Eosinophils/100 WBC (Bld) 0.8 % Normal 0.0-6.0 [facility] ([place]) Comment on above: Performed By: #### Scott G, GFR, BMP #### [address] [address] Lymphocyte, Absolute 1.1 10 3/mcL Normal 0.9-4.3 [facility] ([place]) Comment on above: Performed By: #### Scott G, GFR, BMP #### [address] [address] Lymphocytes/100 WBC (Bld) 15.2 % Low 20.0-40.0 [facility] ([place]) Comment on above: Performed By: #### Scott G, GFR, BMP #### [address] [address] Monocyte, Absolute 0.8 10 3/mcL Normal 0.1-1.4 [facility] ([place]) Comment on above: Performed By: #### M G, GFR, BMP #### [address] [address] Monocytes/100 WBC (Bld) 10.7 % Normal 2.0-13.0 [facility] ([place]) Comment on above: Performed By: #### M G, GFR, BMP #### [address] [address] Neutrophils/100 WBC (Bld) 72.9 % Normal 50.0-75.0 [facility] ([place]) Comment on above: Performed By: #### M G, GFR, BMP #### [address] [address] .GFRon 04-26-2023 GFR >60 Normal [facility] ([place]) Comment on above: Result Comment: GFR Population [...] DIFF, CBC, MG, ANEU, BMP, GFR #### [place] [address] GFR Non- >60 Normal [facility] ([place]) Comment on above: Result Comment: GFR Population [...] DIFF, CBC, MG, ANEU, BMP, GFR #### [address] [address] .NEUABSon 04-26-2023 Neutrophil, Absolute 5.1 10 3/mcL Normal 2.3-8.1 [facility] ([place]) Comment on above: Performed By: #### M G, GFR, BMP #### [address] [address] BMPon 04-26-2023 BUN/Creatinine Ratio 24.3 ratio High 10.0-22.0 [facility] ([place]) Comment on above: Performed By: #### A DIFF, CBC, MG, ANEU, BMP, GFR #### [place] [id number] Calcium [Mass/Vol] 8.2 mg/dL Low 8.7-10.4 [facility] ([place]) Comment on above: Performed By: #### A DIFF, CBC, MG, ANEU, BMP, GFR #### [place] [address] Chloride [Moles/Vol] 104 mmol/L Normal 98-110 [facility] ([place]) Comment on above: Performed By: #### A DIFF, CBC, MG, ANEU, BMP, GFR #### [place] [address] CO2 [Moles/Vol] 29 mmol/L Normal 22-32 [facility] ([place]) Comment on above: Performed By: #### A DIFF, CBC, MG, ANEU, BMP, GFR #### [place] [address] Creatinine [Mass/Vol] 0.70 mg/dL Normal 0.60-1.40 [facility] ([place]) Comment on above: Performed By: #### A DIFF, CBC, MG, ANEU, BMP, GFR #### [place] [address] Electrolyte Balance 8.0 mEq/L Normal 4.0-15.0 [facility] ([place]) Comment on above: Performed By: #### A DIFF, CBC, MG, ANEU, BMP, GFR #### [place] [address] Glucose [Mass/Vol] 190 mg/dL High 82-115 [facility] ([place]) Comment on above: Performed By: #### A DIFF, CBC, MG, ANEU, BMP, GFR #### [place] [address] Potassium [Moles/Vol] 3.6 mmol/L Normal 3.5-5.0 [facility] ([place]) Comment on above: Performed By: #### A DIFF, CBC, MG, ANEU, BMP, GFR #### [place] [address] Sodium [Moles/Vol] 141 mmol/L Normal 136-145 [facility] ([place]) Comment on above: Performed By: #### A DIFF, CBC, MG, ANEU, BMP, GFR #### [place] [address] Urea nitrogen [Mass/Vol] 17.0 mg/dL Normal 8.0-22.0 [facility] ([place]) Comment on above: Performed By: #### A DIFF, CBC, MG, ANEU, BMP, GFR #### [place] [address] CBCon 04-26-2023 Erythrocyte distribution width (RBC) [Ratio] 14.6 % Normal 11.5-15.5 [facility] ([place]) Comment on above: Performed By: #### M G, GFR, BMP #### [place] [address] Hematocrit (Bld) [Volume fraction] 34.0 % Low 40.0-52.0 [facility] ([place]) Comment on above: Performed By: #### M G, GFR, BMP #### [place] [address] Hgb 11.6 G/dL Low 13.0-17.5 [facility] ([place]) Comment on above: Performed By: #### M G, GFR, BMP #### [place] [address] MCH (RBC) [Entitic mass] 30.5 pg Normal 27.0-33.0 [facility] ([place]) Comment on above: Performed By: #### M G, GFR, BMP #### [place] [address] MCHC 34.1 G/dL Normal 32.0-36.0 [facility] ([place]) Comment on above: Performed By: #### M G, GFR, BMP #### [address] [address] MCV (RBC) [Entitic vol] 89.5 fL Normal 81.0-100.0 [facility] ([place]) Comment on above: Performed By: #### M G, GFR, BMP #### [address] [address] Platelet 189 10 3/mcL Normal 150-450 [facility] ([place]) Comment on above: Performed By: #### M G, GFR, BMP #### [address] [address] Platelet mean volume (Bld) [Entitic vol] 9.8 fL Normal 6.4-10.5 [facility] ([place]) Comment on above: Performed By: #### Scott G, GFR, BMP #### [address] [address] RBC 3.80 10 6/mcL Low 4.50-6.00 [facility] ([place]) Comment on above: Performed By: #### M G, GFR, BMP #### [address] [address] WBC 7.0 10 3/mcL Normal 4.5-10.8 [facility] ([place]) Comment on above: Performed By: #### M G, GFR, BMP #### [address] [address] LABORATORYOrdered By: Manuel Mathews on 04-26-2023 Blood Glucose Interventions Administered agent to decrease blood sugar (04/26/23 8:09 AM) [facility] Work Phone: LABORATORYOrdered By: SYSTEM SYSTEM on 04-26-2023 Basophils (Bld) [#/Vol] 0.0 103/mcL Normal 0.0 - 0.3 10^3/mcL AH Workflow SS Basophils/100 WBC (Bld) 0.4 % Normal 0.0 - 2.5 % AH Workflow SS Calcium [Mass/Vol] 8.2 mg/dL Low 8.7 - 10. 4 mg/dL AH ADM SS Chloride [Moles/Vol] 104 mmol/L Normal [...] (S/P/Bld) [Vol rate/Area] ml/min/1.73sqm Invalid Interpretation Code 99tests Chemistry S Comment on above: Interpretive Data: [...] 34.0 % Low 40.0 - 52.0 % AH Workflow SS Hemoglobin (Bld) [Mass/Vol] 11.6 G/dL Low 13.0 - 17.5 G/dL AH Workflow SS Lymphocytes (Bld) [#/Vol] 1.1 103/mcL Normal 0.9 - 4.3 10^3/mcL AH Workflow SS Lymphocytes/100 WBC (Bld) 15.2 % Low 20.0 - 40.0 % AH Workflow SS Magnesium [Mass/Vol] 1.8 mg/dL Normal 1.6 - 2 .4 mg/dL ADM SS MCH (RBC) [Entitic mass] 30.5 pg Normal 27.0 - 33.0 pg AH Workflow SS MCHC 34.1 G/dL Normal 32.0 - 36.0 G/dL Workflow SS MCV (RBC) [Entitic vol] 89.5 fL Normal 81.0 - 100.0 fL Workflow SS Monocytes (Bld) [#/Vol] 0.8 103/mcL Normal 0.1 - 1.4 10^3/mcL AH Workflow SS Monocytes/100 WBC (Bld) 10.7 % Normal 2.0 - 13.0 % AH Workflow SS Neutrophils (Bld) [#/Vol] 5.1 103/mcL Normal 2.3 - 8.1 10^3/mcL AH Workflow SS Neutrophils/100 WBC (Bld) 72.9 % Normal 50.0 - 75.0 % Workflow SS Platelet mean volume (Bld) [Entitic vol] 9.8 fL Normal 6.4 - 10.5 fL AH Workflow SS Platelets (Bld) [#/Vol] 189 103/mcL Normal 150 - 450 10^3/mcL AH Workflow SS Potassium [Moles/Vol] 3.6 mmol/L Normal 3.5 - 5.0 mEq/L ADM SS RBC (Bld) [#/Vol] 3.80 106/mcL [...] 7.0 103/mcL Normal 4.5 - 10.8 10^3/mcL AH Workflow SS MGon 04-26-2023 Magnesium [Mass/Vol] 1.8 mg/dL Normal 1.6-2.4 [facility] ([place]) Comment on above: Performed By: #### A DIFF, CBC, MG, ANEU, BMP, GFR #### [address] [address] .Auto Diffon 04-25-2023 Basophil, Absolute 0.0 10 3/mcL Normal 0.0-0.3 [facility] ([place]) Comment on above: Performed By: #### P BNP #### [address] [address] Basophils/100 WBC (Bld) 0.2 % Normal 0.0-2.5 [facility] ([place]) Comment on above: Performed By: #### P BNP #### [address] [address] Eosinophil, Absolute 0.0 10 3/mcL Normal 0.0-0.7 [facility] ([place]) Comment on above: Performed By: #### P BNP #### [address] [address] Eosinophils/100 WBC (Bld) 0.7 % Normal 0.0-6.0 [facility] ([place]) Comment on above: Performed By: #### P BNP #### [address] [address] Lymphocyte, Absolute 0.8 10 3/mcL Low 0.9-4.3 [facility] ([place]) Comment on above: Performed By: #### P BNP #### [address] [address] Lymphocytes/100 WBC (Bld) 12.8 % Low 20.0-40.0 [facility] ([place]) Comment on above: Performed By: #### P BNP #### [address] [address] Monocyte, Absolute 0.7 10 3/mcL Normal 0.1-1.4 [facility] ([place]) Comment on above: Performed By: #### P BNP #### [address] [address] Monocytes/100 WBC (Bld) 11.3 % Normal 2.0-13.0 [facility] ([place]) Comment on above: Performed By: #### P BNP #### [address] [address] Neutrophils/100 WBC (Bld) 75.0 % Normal 50.0-75.0 [facility] ([place]) Comment on above: Performed By: #### P BNP #### [address] [address] .GFRon 04-25-2023 GFR >60 Normal [facility] ([place]) Comment on above: Result Comment: GFR Population [...] meters Performed By: #### P BNP #### [address] [address] GFR Non- >60 Normal [facility] ([place]) Comment on above: Result Comment: GFR Population [...] meters Performed By: #### P BNP #### [address] [address] .NEUABSon 04-25-2023 Neutrophil, Absolute 4.8 10 3/mcL Normal 2.3-8.1 [facility] ([place]) Comment on above: Performed By: #### P BNP #### [address] [address] BMPon 04-25-2023 BUN/Creatinine Ratio 31.0 ratio High 10.0-22.0 [facility] ([place]) Comment on above: Performed By: #### P BNP #### [address] [address] Calcium [Mass/Vol] 8.1 mg/dL Low 8.7-10.4 [facility] ([place]) Comment on above: Performed By: #### P BNP #### [address] [address] Chloride [Moles/Vol] 105 mmol/L Normal 98-110 [facility] ([place]) Comment on above: Performed By: #### P BNP #### [address] [address] CO2 [Moles/Vol] 28 mmol/L Normal 22-32 [facility] ([place]) Comment on above: Performed By: #### P BNP #### [address] [address] Creatinine [Mass/Vol] 0.71 mg/dL Normal 0.60-1.40 [facility] ([place]) Comment on above: Performed By: #### P BNP #### [address] [address] Electrolyte Balance 7.0 mEq/L Normal 4.0-15.0 [facility] ([place]) Comment on above: Performed By: #### P BNP #### [place] [address] Glucose [Mass/Vol] 169 mg/dL High 82-115 [facility] ([place] Comment on above: Performed By: #### P BNP #### [place] [address] Potassium [Moles/Vol] 3.7 mmol/L Normal 3.5-5.0 [facility] ([place]) Comment on above: Performed By: #### P BNP #### [place] [address] Sodium [Moles/Vol] 140 mmol/L Normal 136-145 [facility] ([place]) Comment on above: Performed By: #### P BNP #### [place] [address] Urea nitrogen [Mass/Vol] 22.0 mg/dL Normal 8.0-22.0 [facility] ([place]) Comment on above: Performed By: #### P BNP #### [place] [address] CBCon 04-25-2023 Erythrocyte distribution width (RBC) [Ratio] 14.3 % Normal 11.5-15.5 [facility] ([place]) Comment on above: Performed By: #### P BNP #### [place] [address] Hematocrit (Bld) [Volume fraction] 31.5 % Low 40.0-52.0 [facility] ([place]) Comment on above: Performed By: #### P BNP #### [place] [address] Hgb 10.8 G/dL Low 13.0-17.5 [facility] ([place]) Comment on above: Performed By: #### P BNP #### [place] [id number] MCH (RBC) [Entitic mass] 30.9 pg Normal 27.0-33.0 [facility] ([place]) Comment on above: Performed By: #### P BNP #### [place] [address] MCHC 34.4 G/dL Normal 32.0-36.0 [facility] ([place]) Comment on above: Performed By: #### P BNP #### [place] [id number] MCV (RBC) [Entitic vol] 89.8 fL Normal 81.0-100.0 [facility] ([place]) Comment on above: Performed By: #### P BNP #### [place] [address] Platelet 159 10 3/mcL Normal 150-450 [facility] ([place]) Comment on above: Performed By: #### P BNP #### [place] [address] Platelet mean volume (Bld) [Entitic vol] 9.8 fL Normal 6.4-10.5 [facility] ([place]) Comment on above: Performed By: #### P BNP #### [place] [address] RBC 3.51 10 6/mcL Low 4.50-6.00 [facility] ([place]) Comment on above: Performed By: #### P BNP #### [place] [address] WBC 6.4 10 3/mcL Normal 4.5-10.8 [facility] ([place]) Comment on above: Performed By: #### P BNP #### [place] [address] [address] HEAD OR BRAIN W/O CONTRAS Ton [...] 04/25/2023 4:14:42 PM Ordering Provider: KIEL SAINZ [facility] ([place]) LABORATORYOrdered By: SYSTEM SYSTEM on 04-25-2023 Basophils (Bld) [#/Vol] 0.0 103/mcL Normal 0.0 - 0.3 10^3/mcL AH Workflow SS Basophils/100 WBC (Bld) 0.2 % Normal 0.0 - 2.5 % AH Workflow SS Calcium [Mass/Vol] 8.1 mg/dL Low 8.7 - 10. 4 mg/dL AH ADM SS Chloride [Moles/Vol] 105 mmol/L Normal 98 - 11 0 mEq/L AH ADM SS CO2 [Moles/Vol] 28 mmol/L Normal 22 - 32 mEq/L ADM SS Creatinine [Mass/Vol] 0.71 mg/dL Normal 0.60 - 1.40 mg/dL AH ADM SS Electrolyte Balance 7.0 mEq/L Normal 4.0 - 15 .0 mEq/L AH ADM SS Eosinophils (Bld) [#/Vol] 0.0 103/mcL [...] (S/P/Bld) [Vol rate/Area] ml/min/1.73sqm Invalid Interpretation Code 99tests Chemistry S Comment on above: Interpretive Data: [...] 10^3/mcL AH Workflow SS Lymphocytes/100 WBC (Bld) 12.8 % Low 20.0 - 40.0 % AH Workflow SS MCH (RBC) [Entitic mass] 30.9 pg Normal 27.0 - 33.0 pg AH Workflow SS MCHC 34.4 G/dL Normal 32.0 - 36.0 G/dL AH [...] mEq/L AH ADM SS Urea nitrogen [Mass/Vol] 22.0 mg/dL Normal 8.0 - 22.0 mg/dL AH ADM SS Urea nitrogen/Creatinine [Mass ratio] 31.0 ratio High 10.0 - 22.0 ratio AH ADM SS WBC (Bld) [#/Vol] 6.4 103/mcL Normal 4.5 - 10.8 10^3/mcL AH Workflow SS .Auto Diffon 04-24-2023 Basophil, Absolute 0.0 10 3/mcL Normal 0.0-0.3 [facility] ([place]) Comment on above: Performed By: #### A DIFF, CBC, MG, ANEU, BMP, GFR #### [address] [address] Basophils/100 WBC (Bld) 0.3 % Normal 0.0-2.5 [facility] ([place]) Comment on above: Performed By: #### A DIFF, CBC, MG, ANEU, BMP, GFR #### [address] [address] Eosinophil, Absolute 0.0 10 3/mcL Normal 0.0-0.7 [facility] ([place]) Comment on above: Performed By: #### A DIFF, CBC, MG, ANEU, BMP, GFR #### [address] [address] Eosinophils/100 WBC (Bld) 0.5 % Normal 0.0-6.0 [facility] ([place]) Comment on above: Performed By: #### A DIFF, CBC, MG, ANEU, BMP, GFR #### [address] [address] Lymphocyte, Absolute 0.8 10 3/mcL Low 0.9-4.3 [facility] ([place]) Comment on above: Performed By: #### A DIFF, CBC, MG, ANEU, BMP, GFR #### [address] [address] Lymphocytes/100 WBC (Bld) 14.6 % Low 20.0-40.0 [facility] ([place]) Comment on above: Performed By: #### A DIFF, CBC, MG, ANEU, BMP, GFR #### [address] [address] Monocyte, Absolute 0.7 10 3/mcL Normal 0.1-1.4 [facility] ([place]) Comment on above: Performed By: #### A DIFF, CBC, MG, ANEU, BMP, GFR #### [address] [address] Monocytes/100 WBC (Bld) 14.4 % High 2.0-13.0 [facility] ([place]) Comment on above: Performed By: #### A DIFF, CBC, MG, ANEU, BMP, GFR #### [address] [address] Neutrophils/100 WBC (Bld) 70.2 % Normal 50.0-75.0 [facility] ([place]) Comment on above: Performed By: #### A DIFF, CBC, MG, ANEU, BMP, GFR #### [address] [address] .GFRon 04-24-2023 GFR >60 Normal [facility] ([place]) Comment on above: Result Comment: GFR Population [...] meters Performed By: #### P BNP #### [address] [address] GFR Non- >60 Normal [facility] ([place]) Comment on above: Result Comment: GFR Population [...] meters Performed By: #### P BNP #### [address] [address] .NEUABSon 04-24-2023 Neutrophil, Absolute 3.6 10 3/mcL Normal 2.3-8.1 [facility] ([place]) Comment on above: Performed By: #### A DIFF, CBC, MG, ANEU, BMP, GFR #### [address] [address] BMPon 04-24-2023 BUN/Creatinine Ratio 35.5 ratio High 10.0-22.0 [facility] ([place]) Comment on above: Performed By: #### A DIFF, CBC, MG, ANEU, BMP, GFR #### [place] [address] Calcium [Mass/Vol] 8.3 mg/dL Low 8.7-10.4 [facility] ([place]) Comment on above: Performed By: #### A DIFF, CBC, MG, ANEU, BMP, GFR #### [place] [address] Chloride [Moles/Vol] 108 mmol/L Normal 98-110 [facility] ([place]) Comment on above: Performed By: #### A DIFF, CBC, MG, ANEU, BMP, GFR #### [place] [address] CO2 [Moles/Vol] 30 mmol/L Normal 22-32 [facility] ([place]) Comment on above: Performed By: #### A DIFF, CBC, MG, ANEU, BMP, GFR #### [address] [address] Creatinine [Mass/Vol] 0.93 mg/dL Normal 0.60-1.40 [facility] ([place]) Comment on above: Performed By: #### A DIFF, CBC, MG, ANEU, BMP, GFR #### [address] [address] Electrolyte Balance 6.0 mEq/L Normal 4.0-15.0 [facility] ([place]) Comment on above: Performed By: #### A DIFF, CBC, MG, ANEU, BMP, GFR #### [address] [address] Glucose [Mass/Vol] 180 mg/dL High 82-115 [facility] ([place]) Comment on above: Performed By: #### A DIFF, CBC, MG, ANEU, BMP, GFR #### [address] [address] Potassium [Moles/Vol] 3.4 mmol/L Low 3.5-5.0 [facility] ([place]) Comment on above: Performed By: #### A DIFF, CBC, MG, ANEU, BMP, GFR #### [address] [address] Sodium [Moles/Vol] 144 mmol/L Normal 136-145 [facility] ([place]) Comment on above: Performed By: #### A DIFF, CBC, MG, ANEU, BMP, GFR #### [place] [address] Urea nitrogen [Mass/Vol] 33.0 mg/dL High 8.0-22.0 [facility] ([place]) Comment on above: Performed By: #### A DIFF, CBC, MG, ANEU, BMP, GFR #### [place] [address] CBCon 04-24-2023 Erythrocyte distribution width (RBC) [Ratio] 14.6 % Normal 11.5-15.5 [facility] ([place]) Comment on above: Performed By: #### A DIFF, CBC, MG, ANEU, BMP, GFR #### [place] [address] Hematocrit (Bld) [Volume fraction] 33.9 % Low 40.0-52.0 [facility] ([place]) Comment on above: Performed By: #### A DIFF, CBC, MG, ANEU, BMP, GFR #### [place] [address] Hgb 11.4 G/dL Low 13.0-17.5 [facility] ([place]) Comment on above: Performed By: #### A DIFF, CBC, MG, ANEU, BMP, GFR #### [place] [address] MCH (RBC) [Entitic mass] 30.2 pg Normal 27.0-33.0 [facility] ([place]) Comment on above: Performed By: #### A DIFF, CBC, MG, ANEU, BMP, GFR #### [place] [address] MCHC 33.6 G/dL Normal 32.0-36.0 [facility] ([place]) Comment on above: Performed By: #### A DIFF, CBC, MG, ANEU, BMP, GFR #### [place] [address] MCV (RBC) [Entitic vol] 89.7 fL Normal 81.0-100.0 [facility] ([place]) Comment on above: Performed By: #### A DIFF, CBC, MG, ANEU, BMP, GFR #### [place] [address] Platelet 180 10 3/mcL Normal 150-450 [facility] ([place]) Comment on above: Performed By: #### A DIFF, CBC, MG, ANEU, BMP, GFR #### [place] [address] Platelet mean volume (Bld) [Entitic vol] 9.6 fL Normal 6.4-10.5 [facility] ([place]) Comment on above: Performed By: #### A DIFF, CBC, MG, ANEU, BMP, GFR #### [place] [address] RBC 3.78 10 6/mcL Low 4.50-6.00 [facility] ([place]) Comment on above: Performed By: #### A DIFF, CBC, MG, ANEU, BMP, GFR #### [place] [address] WBC 5.1 10 3/mcL Normal 4.5-10.8 [facility] ([place]) Comment on above: Performed By: #### A DIFF, CBC, MG, ANEU, BMP, GFR #### [place] [address] LABORATORYOrdered By: SYSTEM SYSTEM on 04-24-2023 Basophils [...] 04-24-2023 Magnesium [Mass/Vol] 1.8 mg/dL Normal 1.6-2.4 [facility] ([place]) Comment on above: Performed By: #### A DIFF, CBC, MG, ANEU, BMP, GFR #### [address] [address] XR ABDOMEN APon 04-24-2023 XR ABDOMEN AP [...] 04/24/2023 11:17:01 AM Ordering Provider: ARIA Garsia [facility] ([place]) .Auto Diffon 04-23-2023 Basophil, Absolute 0.0 10 3/mcL Normal 0.0-0.3 [facility] ([place]) Comment on above: Performed By: #### A DIFF, CBC, MG, ANEU, BMP, GFR #### [address] [address] Basophils/100 WBC (Bld) 0.2 % Normal 0.0-2.5 [facility] ([place]) Comment on above: Performed By: #### A DIFF, CBC, MG, ANEU, BMP, GFR #### [address] [address] Eosinophil, Absolute 0.0 10 3/mcL Normal 0.0-0.7 [facility] ([place]) Comment on above: Performed By: #### A DIFF, CBC, MG, ANEU, BMP, GFR #### [address] [address] Eosinophils/100 WBC (Bld) 0.0 % Normal 0.0-6.0 [facility] ([place]) Comment on above: Performed By: #### A DIFF, CBC, MG, ANEU, BMP, GFR #### [address] [address] Lymphocyte, Absolute 0.6 10 3/mcL Low 0.9-4.3 [facility] ([place]) Comment on above: Performed By: #### A DIFF, CBC, MG, ANEU, BMP, GFR #### [address] [address] Lymphocytes/100 WBC (Bld) 6.8 % Low 20.0-40.0 [facility] ([place]) Comment on above: Performed By: #### A DIFF, CBC, MG, ANEU, BMP, GFR #### [address] [address] Monocyte, Absolute 1.1 10 3/mcL Normal 0.1-1.4 [facility] ([place]) Comment on above: Performed By: #### A DIFF, CBC, MG, ANEU, BMP, GFR #### [address] [address] Monocytes/100 WBC (Bld) 12.4 % Normal 2.0-13.0 [facility] ([place]) Comment on above: Performed By: #### A DIFF, CBC, MG, ANEU, BMP, GFR #### [address] [address] Neutrophils/100 WBC (Bld) 80.6 % High 50.0-75.0 [facility] ([place]) Comment on above: Performed By: #### A DIFF, CBC, MG, ANEU, BMP, GFR #### [address] [address] .GFRon 04-23-2023 GFR >60 Normal [facility] ([place]) Comment on above: Result Comment: [...] DIFF, CBC, MG, ANEU, BMP, GFR #### [address] [address] GFR Non- >60 Normal [facility] ([place]) Comment on above: Result Comment: GFR Population [...] DIFF, CBC, MG, ANEU, BMP, GFR #### [address] [address] .MDWon 04-23-2023 Monocyte Distribution Width 26.98 High 0.00-20.00 [facility] ([place]) Comment on above: Result Comment: For adults in ED, MDW>20.0 may be associated with a higher risk of sepsis during the first 12hrs of hospital admission Performed By: #### A DIFF, CBC, MG, ANEU, BMP, GFR #### [address] [address] .NEUABSon 04-23-2023 Neutrophil, Absolute 7.4 10 3/mcL Normal 2.3-8.1 [facility] ([place]) Comment on above: Performed By: #### A DIFF, CBC, MG, ANEU, BMP, GFR #### [place] [address] CBCon 04-23-2023 Erythrocyte distribution width (RBC) [Ratio] 14.9 % Normal 11.5-15.5 [facility] ([place]) Comment on above: Performed By: #### A DIFF, CBC, MG, ANEU, BMP, GFR #### [place] [address] Hematocrit (Bld) [Volume fraction] 36.1 % Low 40.0-52.0 [facility] ([place]) Comment on above: Performed By: #### A DIFF, CBC, MG, ANEU, BMP, GFR #### [place] [address] Hgb 12.4 G/dL Low 13.0-17.5 [facility] ([place]) Comment on above: Performed By: #### A DIFF, CBC, MG, ANEU, BMP, GFR #### [place] [address] MCH (RBC) [Entitic mass] 30.9 pg Normal 27.0-33.0 [facility] ([place]) Comment on above: Performed By: #### A DIFF, CBC, MG, ANEU, BMP, GFR #### [place] [address] MCHC 34.4 G/dL Normal 32.0-36.0 [facility] ([place]) Comment on above: Performed By: #### A DIFF, CBC, MG, ANEU, BMP, GFR #### [place] [address] MCV (RBC) [Entitic vol] 90.0 fL Normal 81.0-100.0 [facility] ([place]) Comment on above: Performed By: #### A DIFF, CBC, MG, ANEU, BMP, GFR #### [place] [address] Platelet 198 10 3/mcL Normal 150-450 [facility] ([place]) Comment on above: Performed By: #### A DIFF, CBC, MG, ANEU, BMP, GFR #### [place] [address] Platelet mean volume (Bld) [Entitic vol] 10.1 fL Normal 6.4-10.5 [facility] ([place]) Comment on above: Performed By: #### A DIFF, CBC, MG, ANEU, BMP, GFR #### [place] [address] RBC 4.01 10 6/mcL Low 4.50-6.00 [facility] ([place]) Comment on above: Performed By: #### A DIFF, CBC, MG, ANEU, BMP, GFR #### [place] [address] WBC 9.2 10 3/mcL Normal 4.5-10.8 [facility] ([place]) Comment on above: Performed By: #### A DIFF, CBC, MG, ANEU, BMP, GFR #### [place] [address] CMPon 04-23-2023 Albumin Level 2.8 G/dL Low 3.2-4.8 [facility] ([place]) Comment on above: Performed By: #### A DIFF, CBC, MG, ANEU, BMP, GFR #### [place] [address] Albumin/Globulin [Mass ratio] 0.7 {ratio} Low 0.9-1.6 [facility] ([place]) Comment on above: Performed By: #### A DIFF, CBC, MG, ANEU, BMP, GFR #### [place] [address] ALP [Catalytic activity/Vol] 91 U/L Normal 38-126 [facility] ([place]) Comment on above: Performed By: #### A DIFF, CBC, MG, ANEU, BMP, GFR #### [place] [address] ALT [Catalytic activity/Vol] 11 U/L Low 12-55 [facility] ([place]) Comment on above: Performed By: #### A DIFF, CBC, MG, ANEU, BMP, GFR #### [address] [address] AST [Catalytic activity/Vol] 20 U/L Normal 8-34 [facility] ([place]) Comment on above: Performed By: #### A DIFF, CBC, MG, ANEU, BMP, GFR #### [address] [address] Bili Total 0.90 mg/dL Normal 0.20-1.20 [facility] ([place]) Comment on above: Result Comment: Use of this assay is not recommended for patients undergoing treatment with eltrombopag due to the potential for falsely elevated results. Performed By: #### A DIFF, CBC, MG, ANEU, BMP, GFR #### [address] [address] BUN/Creatinine Ratio 25.6 ratio High 10.0-22.0 [facility] ([place]) Comment on above: Performed By: #### A DIFF, CBC, MG, ANEU, BMP, GFR #### [address] [address] Calcium [Mass/Vol] 9.1 mg/dL Normal 8.7-10.4 [facility] ([place]) Comment on above: Performed By: #### A DIFF, CBC, MG, ANEU, BMP, GFR #### [address] [address] Chloride [Moles/Vol] 104 mmol/L Normal 98-110 [facility] ([place]) Comment on above: Performed By: #### A DIFF, CBC, MG, ANEU, BMP, GFR #### [address] [address] CO2 [Moles/Vol] 28 mmol/L Normal 22-32 [facility] ([place]) Comment on above: Performed By: #### A DIFF, CBC, MG, ANEU, BMP, GFR #### [address] [address] Creatinine [Mass/Vol] 1.17 mg/dL Normal 0.60-1.40 [facility] ([place]) Comment on above: Performed By: #### A DIFF, CBC, MG, ANEU, BMP, GFR #### [address] [address] Electrolyte Balance 4.0 mEq/L Normal 4.0-15.0 [facility] ([place]) Comment on above: Performed By: #### A DIFF, CBC, MG, ANEU, BMP, GFR #### [address] [address] Globulin 3.8 G/dL Normal 1.5-3.8 [facility] ([place]) Comment on above: Performed By: #### A DIFF, CBC, MG, ANEU, BMP, GFR #### [address] [address] Glucose [Mass/Vol] 292 mg/dL High 82-115 [facility] ([place]) Comment on above: Performed By: #### A DIFF, CBC, MG, ANEU, BMP, GFR #### [address] [address] Potassium [Moles/Vol] 4.2 mmol/L Normal 3.5-5.0 [facility] ([place]) Comment on above: Result Comment: Spec imen slightly hemolyzed. Performed By: #### A DIFF, CBC, MG, ANEU, BMP, GFR #### [address] [address] Sodium [Moles/Vol] 136 mmol/L Normal 136-145 [facility] ([place]) Comment on above: Performed By: #### A DIFF, CBC, MG, ANEU, BMP, GFR #### [address] [address] Total Protein 6.6 G/dL Normal 5.7-8.2 [facility] ([place]) Comment on above: Result Comment: No te - New Reference Range in effect 19 Performed By: #### A DIFF, CBC, MG, ANEU, BMP, GFR #### [address] [address] Urea nitrogen [Mass/Vol] 30.0 mg/dL High 8.0-22.0 [facility] ([place]) Comment on above: Performed By: #### A DIFF, CBC, MG, ANEU, BMP, GFR #### [place] [id number] [address] [employer], [place] [id number] CT ABD/PELVIS W/ IV CONTRAST ONLYon 04-23-2023 [...] 04/23/2023 9:05:46 AM Ordering Provider: PRAKASH Garsia [facility] ([place]) CVFLURVon 04-23-2023 FLU A PCR Negative Normal Negative [facility]) Comment on above: Result Comment: [place] [id number] Performed By: #### A DIFF, CBC, MG, ANEU, BMP, GFR #### [place] [address] FLU B PCR Negative Normal Negative [facility]) Comment on above: Result Comment: [place] [id number] Performed By: #### A DIFF, CBC, MG, ANEU, BMP, GFR #### [place] [address] RSV PCR Negative Normal Negative [facility]) Comment on above: Result Comment: [place] [id number] Performed By: #### A DIFF, CBC, MG, ANEU, BMP, GFR #### [place] [address] SARS-CoV-2 (COVID-19) RNA SARAH+probe Ql (Unsp spec) Negative Normal Negative [facility]) Comment on above: Result Comment: Note s [id number] This test has been authorized by FDA [...] DIFF, CBC, MG, ANEU, BMP, GFR #### [place] [address] LABORATORYOrdered By: Ya Martinez on 04-23-2023 Natriuretic peptide.B prohormone N-Terminal [Mass/Vol] 1670 pg/mL High 0 - 900 pg/mL Auto Chem SS Comment on above: Interpretive Data: N T-proBNP results of less than 300 pg/mL effectively rules out acute congestive heart failure with 99% negative predictive value. LABORATORYOrdered By: SYSTEM SYSTEM on 04-23-2023 Troponin I.cardiac DL <= 0.01 ng/mL [Mass/Vol] 10.00 ng/L Normal 0.00 - 54.00 ng/L ADM SS Albumin BCP dye [Mass/Vol] 2.8 G/dL Low 3.2 - 4.8 G/dL ADM SS Albumin/Globulin [Mass ratio] 0.7 {ratio} Low 0.9 - 1.6 ratio AH ADM SS ALP [Catalytic activity/Vol] 91 U/L Normal 38 - 126 U/L ADM SS ALT No additional P-5'-P [Catalytic activity/Vol] 11 U/L Low 12 - 55 U/L ADM SS AST [Catalytic activity/Vol] 20 U/L Normal 8 - 34 U/L ADM SS Bilirubin [Mass/Vol] 0.90 mg/dL Normal 0.20 - 1.20 mg/dL AH ADM SS Comment on above: Interpretive Data: U se of this assay is not recommended for patients undergoing treatment with eltrombopag due to the potential for falsely elevated results. Globulin 3.8 G/dL Normal 1.5 - 3.8 G/dL ADM SS Lipase [Catalytic activity/Vol] 20 U/L Normal 12 - 53 U/L ADM SS Comment on above: Interpretive Data: [...] Comment on above: Result Comment: [place] [id number] FLUBV RNA SARAH+probe Ql (Resp) Negative 11 (04/23/23 5:34 AM) Normal Negative AH Auto Viro/Sero SS Comment on above: Result Comment: [place] [id number] RSV PCR Negative 12 (04/23/23 5:34 AM) Normal Negative AH Auto Viro/Sero SS Comment on above: Result Comment: [place] s [id number] SARS-CoV-2 (COVID-19) RNA SARAH+probe Ql (Resp) Negative 8, 9 (04/23/23 5:34 AM) Normal Negative AH Auto Viro/Sero SS Comment on above: Result Comment: [place] [id number] Interpretive Data: T his test has been [...] 04-23-2023 Lipase Level 20 U/L Normal 12-53 [facility] ([place]) Comment on above: Result Comment: No te - New Reference Range in effect 19 Performed By: #### A DIFF, CBC, MG, ANEU, BMP, GFR #### [place] [address] PBNPon 04-23-2023 Natriuretic peptide B (Bld) [Mass/Vol] 1670 pg/mL High 0-900 [facility] ([place]) Comment on above: Result Comment: NT-p roBNP results of less than 300 pg/mL effectively rules out acute congestive heart failure with 99% negative predictive value. Performed By: #### A DIFF, CBC, MG, ANEU, BMP, GFR #### [address] [address] TROPHSon 04-23-2023 Troponin I High Sensitivity 10.00 ng/L Normal 0.00-54.00 [facility] ([place]) Comment on above: Performed By: #### T ROPHS #### [place] [id number] UAon 04-23-2023 Color (U) Yellow Normal [facility] ([place]) Comment on above: Performed By: #### M G, GFR, BMP #### [place] [address] Glucose (U) [Mass/Vol] Negative Normal Negative [facility] ([place]) Comment on above: Performed By: #### M G, GFR, BMP #### [place] [address] Ketones Ql (U) Negative Normal Neg-Trace [facility] ([place]) Comment on above: Performed By: #### M G, GFR, BMP #### [place] [address] UA Appear Clear Normal Clear [facility] ([place]) Comment on above: Performed By: #### M G, GFR, BMP #### [place] [id number] UA Blood Negative Normal Neg-Trace [facility] ([place]) Comment on above: Performed By: #### M G, GFR, BMP #### [place] [id number] UA Leuk Est Negative Normal Negative [facility] ([place]) Comment on above: Performed By: #### M G, GFR, BMP #### [address] [address] UA Nitrite Negative Normal Negative [facility] ([place]) Comment on above: Performed By: #### M G, GFR, BMP #### [place] [address] UA pH 5.0 Normal 5.0 - 8.0 [facility] ([place]) Comment on above: Performed By: #### M G, GFR, BMP #### [address] [address] UA Protein 30 mg/dL Normal Negative [facility] ([place]) Comment on above: Performed By: #### M G, GFR, BMP #### [address] [address] UA Spec Grav 1.020 Normal 1.006-1.02 9 [facility] ([place]) Comment on above: Performed By: #### M G, GFR, BMP #### [address] [address] UA Specimen Type Clean Catch Normal [facility] ([place]) Comment on above: Performed By: #### M G, GFR, BMP #### [address] [address] UA Urobilinogen 1.0 E.U./dL Normal 0.2-1.0 [facility] ([place]) Comment on above: Performed By: #### M G, GFR, BMP #### [address] [address] Urobilinogen (U) [Mass/Vol] Negative Normal Neg-Trace [facility] ([place]) Comment on above: Performed By: #### M G, GFR, BMP #### [address] [address] XR CHEST 1 VIEWon 04-23-2023 XR CHEST [...] 04/23/2023 7:38:17 AM Ordering Provider: LILY JEFFERSON [facility] ([place]) XR ENTERIC TUBE PLACEMENTon 04-23-2023 XR ENTERIC [...] 04/23/2023 7:50:33 PM Ordering Provider: ALYSON WARREN [facility] XR ENTERIC TUBE PLACEMENT ORIGINAL EXAMINATION: ONE [...] Date: 04/23/2023 6:05:14 PM Ordering Provider: ALYSON Garsia [facility] ([place]) LABORATORYOrdered By: Sadia Granados on 04-22-2023 Blood Glucose Testing Reason Routine (04/22/23 8:59 PM) [employer] Work Phone: Glucose [Mass/Vol] 265 mg/dL High 82 - 115 mg/dL [employer] Work Phone: Blood Glucose Testing Reason Routine (04/22/23 4:57 PM) [employer] Work Phone: Glucose [Mass/Vol] 235 mg/dL High 82 - 115 mg/dL [employer] Work Phone: LABORATORYOrdered By: Jennifer helms on 04-22-2023 Blood Glucose Testing Reason Routine (04/22/23 12:04 PM) [employer] Work Phone: Glucose [Mass/Vol] 247 mg/dL High 82 - 115 mg/dL [employer] Work Phone: CVFLURVon 04-21-2023 FLU A PCR Negative Normal Negative [facility] ([place]) Comment on above: Result Comment: Note s Performed By: #### P BNP #### [place] [address] FLU B PCR Negative Normal Negative [facility] ([place]) Comment on above: Result Comment: Note s Performed By: #### P BNP #### [place] [address] RSV PCR Negative Normal Negative [facility] ([place]) Comment on above: Result Comment: Note s Performed By: #### P BNP #### [place] [address] SARS-CoV-2 (COVID-19) RNA SARAH+probe Ql (Unsp spec) Negative Normal Negative [facility] ([place]) Comment on above: Result Comment: [place] [id number] This test has been authorized by FDA [...] results. Performed By: #### P BNP #### [place] [address] LABORATORYOrdered By: Fide Parker on 04-21-2023 FLUAV RNA SARAH+probe Ql (Resp) Negative 10 (04/21/23 11:14 AM) Normal Negative AH [facility]Sero SS Comment on above: [place]: [place] [id number] FLUBV RNA SARAH+probe Ql (Resp) Negative 11 (04/21/23 11:14 AM) Normal Negative AH [facility]/Sero SS Comment on above: Result Comment: [place] [id number] RSV PCR Negative 12 (04/21/23 11:14 AM) Normal Negative AH [facility]/Sero SS Comment on above: Result Comment: [place] [id number] SARS-CoV-2 (COVID-19) RNA SARAH+probe Ql (Resp) Negative 8, 9 (04/21/23 11:14 AM) Normal Negative AH Auto [facility]iro/Sero SS Comment on above: Result [place]: [place] [id number] Interpretive Data: T his test has been [...] Basophil, Absolute 0.0 10 3/mcL Normal 0.0-0.3 [facility] ([place]) Comment on above: Performed By: #### A DIFF, CBC, MG, ANEU, BMP, GFR #### [address] [address] Basophils/100 WBC (Bld) 0.5 % Normal 0.0-2.5 [facility] ([place]) Comment on above: Performed By: #### A DIFF, CBC, MG, ANEU, BMP, GFR #### [address] [address] Eosinophil, Absolute 0.1 10 3/mcL Normal 0.0-0.7 [facility] ([place]) Comment on above: Performed By: #### A DIFF, CBC, MG, ANEU, BMP, GFR #### [address] [address] Eosinophils/100 WBC (Bld) 0.9 % Normal 0.0-6.0 [facility] ([place]) Comment on above: Performed By: #### A DIFF, CBC, MG, ANEU, BMP, GFR #### [address] [address] Lymphocyte, Absolute 1.4 10 3/mcL Normal 0.9-4.3 [facility] ([place]) Comment on above: Performed By: #### A DIFF, CBC, MG, ANEU, BMP, GFR #### [address] [address] Lymphocytes/100 WBC (Bld) 22.0 % Normal 20.0-40.0 [facility] ([place]) Comment on above: Performed By: #### A DIFF, CBC, MG, ANEU, BMP, GFR #### [address] [address] Monocyte, Absolute 0.7 10 3/mcL Normal 0.1-1.4 [facility] ([place]) Comment on above: Performed By: #### A DIFF, CBC, MG, ANEU, BMP, GFR #### [address] [address] Monocytes/100 WBC (Bld) 10.1 % Normal 2.0-13.0 [facility] ([place]) Comment on above: Performed By: #### A DIFF, CBC, MG, ANEU, BMP, GFR #### [address] [address] Neutrophils/100 WBC (Bld) 66.5 % Normal 50.0-75.0 [facility] ([place]) Comment on above: Performed By: #### A DIFF, CBC, MG, ANEU, BMP, GFR #### [address] [address] .GFRon 04-20-2023 GFR Non- >60 Normal [facility] ([place]) Comment on above: Result Comment: GFR Population [...] DIFF, CBC, MG, ANEU, BMP, GFR #### [address] [address] GFR >60 Normal [facility] ([place]) Comment on above: Result Comment: GFR Population [...] DIFF, CBC, MG, ANEU, BMP, GFR #### [place] [address] .NEUABSon 04-20-2023 Neutrophil, Absolute 4.3 10 3/mcL Normal 2.3-8.1 [facility] ([place]) Comment on above: Performed By: #### A DIFF, CBC, MG, ANEU, BMP, GFR #### [address] [address] CBCon 04-20-2023 Erythrocyte distribution width (RBC) [Ratio] 14.5 % Normal 11.5-15.5 [facility] ([place]) Comment on above: Performed By: #### A DIFF, CBC, MG, ANEU, BMP, GFR #### [address] [address] Hematocrit (Bld) [Volume fraction] 37.8 % Low 40.0-52.0 [facility] ([place]) Comment on above: Performed By: #### A DIFF, CBC, MG, ANEU, BMP, GFR #### [address] [address] Hgb 12.7 G/dL Low 13.0-17.5 [facility] ([place]) Comment on above: Performed By: #### A DIFF, CBC, MG, ANEU, BMP, GFR #### [place] [address] MCH (RBC) [Entitic mass] 30.5 pg Normal 27.0-33.0 [facility] ([place]) Comment on above: Performed By: #### A DIFF, CBC, MG, ANEU, BMP, GFR #### [place] [address] MCHC 33.6 G/dL Normal 32.0-36.0 [facility] ([place]) Comment on above: Performed By: #### A DIFF, CBC, MG, ANEU, BMP, GFR #### [place] [address] MCV (RBC) [Entitic vol] 90.7 fL Normal 81.0-100.0 [facility] ([place]) Comment on above: Performed By: #### A DIFF, CBC, MG, ANEU, BMP, GFR #### [place] [address] Platelet 198 10 3/mcL Normal 150-450 [facility] ([place]) Comment on above: Performed By: #### A DIFF, CBC, MG, ANEU, BMP, GFR #### [place] [address] Platelet mean volume (Bld) [Entitic vol] 10.5 fL Normal 6.4-10.5 [facility] ([place]) Comment on above: Performed By: #### A DIFF, CBC, MG, ANEU, BMP, GFR #### [place] [address] RBC 4.17 10 6/mcL Low 4.50-6.00 [facility] ([place]) Comment on above: Performed By: #### A DIFF, CBC, MG, ANEU, BMP, GFR #### [place] [address] WBC 6.5 10 3/mcL Normal 4.5-10.8 [facility] ([place]) Comment on above: Performed By: #### A DIFF, CBC, MG, ANEU, BMP, GFR #### [address] [address] CMPon 04-20-2023 Albumin Level 3.0 G/dL Low 3.2-4.8 [facility] ([place]) Comment on above: Performed By: #### A DIFF, CBC, MG, ANEU, BMP, GFR #### [address] [address] Albumin/Globulin [Mass ratio] 0.9 {ratio} Normal 0.9-1.6 [facility] ([place]) Comment on above: Performed By: #### A DIFF, CBC, MG, ANEU, BMP, GFR #### [address] [address] ALP [Catalytic activity/Vol] 114 U/L Normal 38-126 [facility] ([place]) Comment on above: Performed By: #### A DIFF, CBC, MG, ANEU, BMP, GFR #### [place] [id number] ALT [Catalytic activity/Vol] 16 U/L Normal 12-55 [facility] ([place]) Comment on above: Performed By: #### A DIFF, CBC, MG, ANEU, BMP, GFR #### [place] [id number] AST [Catalytic activity/Vol] 16 U/L Normal 8-34 [facility] ([place]) Comment on above: Performed By: #### A DIFF, CBC, MG, ANEU, BMP, GFR #### [place] [id number] Bili Total 0.40 mg/dL Normal 0.20-1.20 [facility] ([place]) Comment on above: Result Comment: Use of this assay is not recommended for patients undergoing treatment with eltrombopag due to the potential for falsely elevated results. Performed By: #### A DIFF, CBC, MG, ANEU, BMP, GFR #### [place] [id number] BUN/Creatinine Ratio 24.2 ratio High 10.0-22.0 [facility] ([place]) Comment on above: Performed By: #### A DIFF, CBC, MG, ANEU, BMP, GFR #### [address] [address] Calcium [Mass/Vol] 9.4 mg/dL Normal 8.7-10.4 [facility] ([place]) Comment on above: Performed By: #### A DIFF, CBC, MG, ANEU, BMP, GFR #### [address] [address] Chloride [Moles/Vol] 104 mmol/L Normal 98-110 [facility] ([place]) Comment on above: Performed By: #### A DIFF, CBC, MG, ANEU, BMP, GFR #### [address] [address] CO2 [Moles/Vol] 31 mmol/L Normal 22-32 [facility] ([place]) Comment on above: Performed By: #### A DIFF, CBC, MG, ANEU, BMP, GFR #### [place] [id number] Creatinine [Mass/Vol] 0.95 mg/dL Normal 0.60-1.40 [facility] ([place]) Comment on above: Performed By: #### A DIFF, CBC, MG, ANEU, BMP, GFR #### [place] [id number] Electrolyte Balance 2.0 mEq/L Low 4.0-15.0 [facility] ([place]) Comment on above: Performed By: #### A DIFF, CBC, MG, ANEU, BMP, GFR #### [address] [address] Globulin 3.4 G/dL Normal 1.5-3.8 [facility] ([place]) Comment on above: Performed By: #### A DIFF, CBC, MG, ANEU, BMP, GFR #### [address] [address] Glucose [Mass/Vol] 195 mg/dL High 82-115 [facility] ([place]) Comment on above: Performed By: #### A DIFF, CBC, MG, ANEU, BMP, GFR #### [place] [id number] Potassium [Moles/Vol] 4.8 mmol/L Normal 3.5-5.0 [facility] ([place]) Comment on above: Performed By: #### A DIFF, CBC, MG, ANEU, BMP, GFR #### [address] [address] Sodium [Moles/Vol] 137 mmol/L Normal 136-145 [facility] ([place]) Comment on above: Performed By: #### A DIFF, CBC, MG, ANEU, BMP, GFR #### [address] [address] Total Protein 6.4 G/dL Normal 5.7-8.2 [facility] ([place]) Comment on above: Result Comment: No te - New Reference Range in effect 19 Performed By: #### A DIFF, CBC, MG, ANEU, BMP, GFR #### [address] [address] Urea nitrogen [Mass/Vol] 23.0 mg/dL High 8.0-22.0 [facility] ([place]) Comment on above: Performed By: #### A DIFF, CBC, MG, ANEU, BMP, GFR #### [address] [address] LABORATORYOrdered By: SYSTEM SYSTEM on 04-20-2023 Albumin [...] (S/P/Bld) [Vol rate/Area] ml/min/1.73sqm Invalid Interpretation Code 99tests Chemistry S Comment on above: Interpretive Data: [...] (S/P/Bld) [Vol rate/Area] ml/min/1.73sqm Invalid Interpretation Code 99tests Chemistry S Comment on above: Interpretive Data: [...] 3.4 G/dL Normal 1.5 - 3.8 G/dL AH ADM SS Glucose [Mass/Vol] 195 mg/dL High 82 - 115 mg/dL AH ADM SS Hematocrit (Bld) [Volume fraction] 37.8 [...] Workflow SS .GFRon 04-17-2023 GFR >60 Normal [facility] ([place]) Comment on above: Result Comment: GFR Population [...] By: #### M G, GFR, BMP #### [place] [address] GFR Non- >60 Normal [facility] ([place]) Comment on above: Result Comment: GFR Population [...] By: #### Scott Lucero, GFR, BMP #### [address] [address] CMPon 04-17-2023 Albumin Level 3.0 G/dL Low 3.2-4.8 [facility] ([place]) Comment on above: Performed By: #### Scott Lucero, GFR, BMP #### [address] [address] Albumin/Globulin [Mass ratio] 1.0 {ratio} Normal 0.9-1.6 [facility] ([place]) Comment on above: Performed By: #### Scott Lucero, GFR, BMP #### [address] [address] ALP [Catalytic activity/Vol] 107 U/L Normal 38-126 [facility] ([place]) Comment on above: Performed By: #### Scott Lucero, GFR, BMP #### [address] [address] ALT [Catalytic activity/Vol] 18 U/L Normal 12-55 [facility] ([place]) Comment on above: Performed By: #### Scott Lucero, GFR, BMP #### [address] [address] AST [Catalytic activity/Vol] 16 U/L Normal 8-34 [facility] ([place]) Comment on above: Performed By: #### Scott Lucero, GFR, BMP #### [address] [address] Bili Total 0.60 mg/dL Normal 0.20-1.20 [facility] ([place]) Comment on above: Result Comment: Use of this assay is not recommended for patients undergoing treatment with eltrombopag due to the potential for falsely elevated results. Performed By: #### M G, GFR, BMP #### [address] [address] BUN/Creatinine Ratio 25.6 ratio High 10.0-22.0 [facility] ([place]) Comment on above: Performed By: #### M G, GFR, BMP #### [address] [address] Calcium [Mass/Vol] 9.0 mg/dL Normal 8.7-10.4 [facility] ([place]) Comment on above: Performed By: #### M G, GFR, BMP #### [address] [address] Chloride [Moles/Vol] 104 mmol/L Normal 98-110 [facility] ([place]) Comment on above: Performed By: #### M G, GFR, BMP #### [address] [address] CO2 [Moles/Vol] 30 mmol/L Normal 22-32 [facility] ([place]) Comment on above: Performed By: #### M G, GFR, BMP #### [address] [address] Creatinine [Mass/Vol] 0.90 mg/dL Normal 0.60-1.40 [facility] ([place]) Comment on above: Performed By: #### M G, GFR, BMP #### [address] [address] Electrolyte Balance 6.0 mEq/L Normal 4.0-15.0 [facility] ([place]) Comment on above: Performed By: #### M G, GFR, BMP #### [address] [address] Globulin 3.1 G/dL Normal 1.5-3.8 [facility] ([place]) Comment on above: Performed By: #### M G, GFR, BMP #### [address] [address] Glucose [Mass/Vol] 230 mg/dL High 82-115 [facility] ([place]) Comment on above: Performed By: #### M G, GFR, BMP #### [place] [phone] [address] [place] [address] Potassium [Moles/Vol] 4.7 mmol/L Normal 3.5-5.0 [facility] ([place]) Comment on above: Performed By: #### M G, GFR, BMP #### [address] [address] Sodium [Moles/Vol] 140 mmol/L Normal 136-145 [facility] ([place]) Comment on above: Performed By: #### M G, GFR, BMP #### [address] [address] Total Protein 6.1 G/dL Normal 5.7-8.2 [facility] ([place]) Comment on above: Result Comment: No te - New Reference Range in effect 19 Performed By: #### M G, GFR, BMP #### [address] [address] Urea nitrogen [Mass/Vol] 23.0 mg/dL High 8.0-22.0 [facility] ([place]) Comment on above: Performed By: #### M G, GFR, BMP #### [address] [address] LABORATORYOrdered By: SYSTEM SYSTEM on 04-17-2023 Albumin [...] (S/P/Bld) [Vol rate/Area] ml/min/1.73sqm Invalid Interpretation Code 99tests Chemistry S Comment on above: Interpretive Data: [...] (S/P/Bld) [Vol rate/Area] ml/min/1.73sqm Invalid Interpretation Code 99tests Chemistry S Comment on above: Interpretive Data: [...] 230 mg/dL High 82 - 115 mg/dL AH ADM SS Potassium [Moles/Vol] 4.7 mmol/L Normal [...] AH ADM SS Urea nitrogen/Creatinine [Mass ratio] 25.6 ratio High 10.0 - 22.0 ratio ADM SS LABORATORYOrdered By: Magda Guy on 04-15-2023 Glucose [Mass/Vol] 170 mg/dL [employer] Work Phone: Glucose [Mass/Vol] 185 mg/dL [employer] Work Phone: .Auto Diffon 04-13-2023 Basophil, Absolute 0.0 10 3/mcL Normal 0.0-0.3 [facility] ([place]) Comment on above: Performed By: #### M G, GFR, BMP #### [address] [address] Basophils/100 WBC (Bld) 0.7 % Normal 0.0-2.5 [facility] ([place]) Comment on above: Performed By: #### M G, GFR, BMP #### [address] [address] Eosinophil, Absolute 0.1 10 3/mcL Normal 0.0-0.7 [facility] ([place]) Comment on above: Performed By: #### M G, GFR, BMP #### [address] [address] Eosinophils/100 WBC (Bld) 0.8 % Normal 0.0-6.0 [facility] ([place]) Comment on above: Performed By: #### M G, GFR, BMP #### [address] [address] Lymphocyte, Absolute 1.4 10 3/mcL Normal 0.9-4.3 [facility] ([place]) Comment on above: Performed By: #### M G, GFR, BMP #### [address] [address] Lymphocytes/100 WBC (Bld) 21.1 % Normal 20.0-40.0 [facility] ([place]) Comment on above: Performed By: #### M G, GFR, BMP #### [address] [address] Monocyte, Absolute 0.6 10 3/mcL Normal 0.1-1.4 [facility] ([place]) Comment on above: Performed By: #### Scott G, GFR, BMP #### [address] [address] Monocytes/100 WBC (Bld) 8.8 % Normal 2.0-13.0 [facility] ([place]) Comment on above: Performed By: #### Scott G, GFR, BMP #### [address] [address] Neutrophils/100 WBC (Bld) 68.6 % Normal 50.0-75.0 [facility] ([place]) Comment on above: Performed By: #### Scott G, GFR, BMP #### [address] [address] .GFRon 04-13-2023 GFR >60 Normal [facility] ([place]) Comment on above: Result Comment: GFR Population [...] By: #### Scott Lucero, GFR, BMP #### [address] [address] GFR Non- >60 Normal [facility] ([place]) Comment on above: Result Comment: GFR Population [...] By: #### Scott Lucero, GFR, BMP #### [address] [address] .NEUABSon 04-13-2023 Neutrophil, Absolute 4.6 10 3/mcL Normal 2.3-8.1 [facility] ([place]) Comment on above: Performed By: #### Scott Lucero, GFR, BMP #### [address] [address] CBCon 04-13-2023 Erythrocyte distribution width (RBC) [Ratio] 14.1 % Normal 11.5-15.5 [facility] ([place]) Comment on above: Performed By: #### Scott Lucero, GFR, BMP #### [address] [address] Hematocrit (Bld) [Volume fraction] 35.4 % Low 40.0-52.0 [facility] ([place]) Comment on above: Performed By: #### Scott Lucero, GFR, BMP #### [address] [address] Hgb 11.8 G/dL Low 13.0-17.5 [facility] ([place]) Comment on above: Performed By: #### Scott G, GFR, BMP #### [address] [address] MCH (RBC) [Entitic mass] 30.1 pg Normal 27.0-33.0 [facility] ([place]) Comment on above: Performed By: #### Scott G, GFR, BMP #### [address] [address] MCHC 33.4 G/dL Normal 32.0-36.0 [facility] ([place]) Comment on above: Performed By: #### Scott Lucero, GFR, BMP #### [place] [address] MCV (RBC) [Entitic vol] 90.1 fL Normal 81.0-100.0 [facility] ([place]) Comment on above: Performed By: #### Scott G, GFR, BMP #### [place] [id number] Platelet 184 10 3/mcL Normal 150-450 [facility] ([place]) Comment on above: Performed By: #### Scott Lucero, GFR, BMP #### [place] [address] Platelet mean volume (Bld) [Entitic vol] 11.1 fL High 6.4-10.5 [facility] ([place]) Comment on above: Performed By: #### Scott G, GFR, BMP #### [place] [id number] RBC 3.93 10 6/mcL Low 4.50-6.00 [facility] ([place]) Comment on above: Performed By: #### Scott G, GFR, BMP #### [place] [id number] WBC 6.7 10 3/mcL Normal 4.5-10.8 [facility] ([place]) Comment on above: Performed By: #### Scott G, GFR, BMP #### [address] [address] CMPon 04-13-2023 Albumin Level 2.9 G/dL Low 3.2-4.8 [facility] ([place]) Comment on above: Performed By: #### M Nic, GFR, BMP #### [address] [address] Albumin/Globulin [Mass ratio] 0.9 {ratio} Normal 0.9-1.6 [facility] ([place]) Comment on above: Performed By: #### M G, GFR, BMP #### [address] [address] ALP [Catalytic activity/Vol] 105 U/L Normal 38-126 [facility] ([place]) Comment on above: Performed By: #### M G, GFR, BMP #### [address] [address] ALT [Catalytic activity/Vol] 28 U/L Normal 12-55 [facility] ([place]) Comment on above: Performed By: #### M G, GFR, BMP #### [address] [address] AST [Catalytic activity/Vol] 20 U/L Normal 8-34 [facility] ([place]) Comment on above: Performed By: #### Scott G, GFR, BMP #### [address] [address] Bili Total 0.50 mg/dL Normal 0.20-1.20 [facility] ([place]) Comment on above: Result Comment: Use of this assay is not recommended for patients undergoing treatment with eltrombopag due to the potential for falsely elevated results. Performed By: #### Scott G, GFR, BMP #### [address] [address] BUN/Creatinine Ratio 26.4 ratio High 10.0-22.0 [facility] ([place]) Comment on above: Performed By: #### Scott G, GFR, BMP #### [address] [address] Calcium [Mass/Vol] 8.9 mg/dL Normal 8.7-10.4 [facility] ([place]) Comment on above: Performed By: #### Scott G, GFR, BMP #### [place] [phone] Chloride [Moles/Vol] 107 mmol/L Normal 98-110 [facility] ([place]) Comment on above: Performed By: #### M G, GFR, BMP #### [address] [address] CO2 [Moles/Vol] 25 mmol/L Normal 22-32 [facility] ([place]) Comment on above: Performed By: #### M G, GFR, BMP #### [address] [address] Creatinine [Mass/Vol] 0.91 mg/dL Normal 0.60-1.40 [facility] ([place]) Comment on above: Performed By: #### M G, GFR, BMP #### [address] [address] Electrolyte Balance 8.0 mEq/L Normal 4.0-15.0 [facility] ([place]) Comment on above: Performed By: #### M G, GFR, BMP #### [address] [address] Globulin 3.1 G/dL Normal 1.5-3.8 [facility] ([place]) Comment on above: Performed By: #### M G, GFR, BMP #### [address] [address] Glucose [Mass/Vol] 190 mg/dL High 82-115 [facility] ([place]) Comment on above: Performed By: #### M G, GFR, BMP #### [address] [address] Potassium [Moles/Vol] 4.9 mmol/L Normal 3.5-5.0 [facility] ([place]) Comment on above: Performed By: #### M G, GFR, BMP #### [address] [address] Sodium [Moles/Vol] 140 mmol/L Normal 136-145 [facility] ([place]) Comment on above: Performed By: #### M G, GFR, BMP #### [address] [address] Total Protein 6.0 G/dL Normal 5.7-8.2 [facility] ([place]) Comment on above: Result Comment: No te - New Reference Range in effect 19 Performed By: #### M G, GFR, BMP #### [address] [address] Urea nitrogen [Mass/Vol] 24.0 mg/dL High 8.0-22.0 [facility] ([place]) Comment on above: Performed By: #### M G, GFR, BMP #### [address] [address] LABORATORYOrdered By: SYSTEM SYSTEM on 04-13-2023 Albumin [...] 0.0 - 2.5 % AH Workflow SS Bilirubin [Mass/Vol] 0.50 mg/dL Normal 0.20 - 1.20 mg/dL AH ADM SS Comment on above: Interpretive Data: U se of this assay is not recommended for patients undergoing treatment with eltrombopag due to the potential for falsely elevated results. Calcium [Mass/Vol] 8.9 mg/dL Normal 8.7 - 10. 4 mg/dL AH ADM SS Chloride [Moles/Vol] 107 mmol/L Normal 98 - 11 0 mEq/L AH ADM SS CO2 [Moles/Vol] 25 mmol/L Normal 22 - 32 mEq/L AH ADM SS Creatinine [Mass/Vol] 0.91 mg/dL Normal [...] (S/P/Bld) [Vol rate/Area] ml/min/1.73sqm Invalid Interpretation Code 99tests Chemistry S Comment on above: Interpretive Data: [...] (S/P/Bld) [Vol rate/Area] ml/min/1.73sqm Invalid Interpretation Code 99tests Chemistry S Comment on above: Interpretive Data: [...] 190 mg/dL High 82 - 115 mg/dL AH ADM SS Hematocrit (Bld) [Volume fraction] 35.4 % Low 40.0 - 52.0 % AH Workflow SS Hemoglobin (Bld) [Mass/Vol] 11.8 G/dL Low 13.0 - 17.5 G/dL AH Workflow SS Lymphocytes (Bld) [#/Vol] 1.4 103/mcL Normal 0.9 - 4.3 10^3/mcL AH Workflow SS Lymphocytes/100 WBC (Bld) 21.1 % Normal 20.0 - 40.0 % AH Workflow SS MCH (RBC) [Entitic mass] 30.1 pg Normal 27.0 - 33.0 pg AH Workflow SS MCHC 33.4 G/dL Normal 32.0 - 36.0 G/dL AH Workflow SS MCV (RBC) [Entitic vol] 90.1 [...] 24.0 mg/dL High 8.0 - 22.0 mg/dL ADM SS Urea nitrogen/Creatinine [Mass ratio] 26.4 ratio High 10.0 - 22.0 ratio AH ADM SS WBC (Bld) [#/Vol] 6.7 103/mcL Normal 4.5 - 10.8 10^3/mcL Workflow SS LABORATORYOrdered By: Mark Hernandes on 04-13-2023 Natriuretic peptide.B prohormone N-Terminal [Mass/Vol] 621 pg/mL Normal 0 - 900 pg/mL Auto Chem SS Comment on above: Interpretive Data: N T-proBNP results of less than 300 pg/mL effectively rules out acute congestive heart failure with 99% negative predictive value. PBNPon 04-13-2023 Natriuretic peptide B (Bld) [Mass/Vol] 621 pg/mL Normal 0-900 [facility] ([place]) Comment on above: Result Comment: NT-p roBNP results of less than 300 pg/mL effectively rules out acute congestive heart failure with 99% negative predictive value. Performed By: #### P BNP #### [address] [address] .GFRon 04-11-2023 GFR >60 Normal [facility] ([place]) Comment on above: Result Comment: GFR Population [...] By: #### M G, GFR, BMP #### [address] [address] GFR Non- >60 Normal [facility] ([place]) Comment on above: Result Comment: GFR Population [...] By: #### Scott Lucero, GFR, BMP #### [address] [address] CMPon 04-11-2023 Albumin Level 2.8 G/dL Low 3.2-4.8 [facility] ([place]) Comment on above: Order Comment: conta minated with EDTA. Recollect 04/10/2023 17:20:15 EST Performed By: #### Scott Lucero, GFR, BMP #### [address] [address] Albumin/Globulin [Mass ratio] 0.9 {ratio} Normal 0.9-1.6 [facility] ([place]) Comment on above: Order Comment: conta minated with EDTA. Recollect 04/10/2023 17:20:15 EST Performed By: #### Scott Lucero, GFR, BMP #### [address] [address] ALP [Catalytic activity/Vol] 103 U/L Normal 38-126 [facility] ([place]) Comment on above: Order Comment: conta minated with EDTA. Recollect 04/10/2023 17:20:15 EST Performed By: #### Scott Lucero, GFR, BMP #### [address] [address] ALT [Catalytic activity/Vol] 24 U/L Normal 12-55 [facility] ([place]) Comment on above: Order Comment: conta minated with EDTA. Recollect 04/10/2023 17:20:15 EST Performed By: #### Scott Lucero, GFR, BMP #### [address] [address] AST [Catalytic activity/Vol] 21 U/L Normal 8-34 [facility] ([place]) Comment on above: Order Comment: conta minated with EDTA. Recollect 04/10/2023 17:20:15 EST Performed By: #### Scott Lucero, GFR, BMP #### [address] [address] Bili Total 0.70 mg/dL Normal 0.20-1.20 [facility] ([place]) Comment on above: Order Comment: conta minated with EDTA. Recollect 04/10/2023 17:20:15 EST Result Comment: Use of this assay is not recommended for patients undergoing treatment with eltrombopag due to the potential for falsely elevated results. Performed By: #### Scott Lucero, GFR, BMP #### [address] [address] BUN/Creatinine Ratio 28.0 ratio High 10.0-22.0 [facility] ([place]) Comment on above: Order Comment: conta minated with EDTA. Recollect 04/10/2023 17:20:15 EST Performed By: #### Scott Lucero, GFR, BMP #### [address] [address] Calcium [Mass/Vol] 8.7 mg/dL Normal 8.7-10.4 [facility] ([place]) Comment on above: Order Comment: conta minated with EDTA. Recollect 04/10/2023 17:20:15 EST Performed By: #### Scott Lucero, GFR, BMP #### [address] [address] Chloride [Moles/Vol] 108 mmol/L Normal 98-110 [facility] ([place]) Comment on above: Order Comment: conta minated with EDTA. Recollect 04/10/2023 17:20:15 EST Performed By: #### Scott Lucero, GFR, BMP #### [address] [address] CO2 [Moles/Vol] 26 mmol/L Normal 22-32 [facility] ([place]) Comment on above: Order Comment: conta minated with EDTA. Recollect 04/10/2023 17:20:15 EST Performed By: #### Scott Lucero, GFR, BMP #### [address] [address] Creatinine [Mass/Vol] 0.93 mg/dL Normal 0.60-1.40 [facility] ([place]) Comment on above: Order Comment: conta minated with EDTA. Recollect 04/10/2023 17:20:15 EST Performed By: #### Scott Lucero, GFR, BMP #### [address] [address] Electrolyte Balance 5.0 mEq/L Normal 4.0-15.0 [facility] ([place]) Comment on above: Order Comment: conta minated with EDTA. Recollect 04/10/2023 17:20:15 EST Performed By: #### Scott Lucero, GFR, BMP #### [place] [id number] Globulin 3.0 G/dL Normal 1.5-3.8 [facility] ([place]) Comment on above: Order Comment: conta minated with EDTA. Recollect 04/10/2023 17:20:15 EST Performed By: #### Scott Lucero, GFR, BMP #### [address] [address] Glucose [Mass/Vol] 187 mg/dL High 82-115 [facility] ([place]) Comment on above: Order Comment: conta minated with EDTA. Recollect 04/10/2023 17:20:15 EST Performed By: #### Scott Lucero, GFR, BMP #### [address] [address] Potassium [Moles/Vol] 4.5 mmol/L Normal 3.5-5.0 [facility] ([place]) Comment on above: Order Comment: conta minated with EDTA. Recollect 04/10/2023 17:20:15 EST Result Comment: Spec imen slightly hemolyzed. Performed By: #### Scott Lucero, GFR, BMP #### [place] [id number] Sodium [Moles/Vol] 139 mmol/L Normal 136-145 [facility] ([place]) Comment on above: Order Comment: conta minated with EDTA. Recollect 04/10/2023 17:20:15 EST Performed By: #### Scott Lucero, GFR, BMP #### [address] [address] Total Protein 5.8 G/dL Normal 5.7-8.2 [facility] ([place]) Comment on above: Order Comment: conta minated with EDTA. Recollect 04/10/2023 17:20:15 EST Result Comment: No te - New Reference Range in effect 19 Performed By: #### Scott Lucero, GFR, BMP #### [address] [address] Urea nitrogen [Mass/Vol] 26.0 mg/dL High 8.0-22.0 [facility] ([place]) Comment on above: Order Comment: conta minated with EDTA. Recollect 04/10/2023 17:20:15 EST Performed By: #### Scott Lucero, GFR, BMP #### [address] [address] .Auto Diffon 04-10-2023 Basophil, Absolute 0.1 10 3/mcL Normal 0.0-0.3 [facility] ([place]) Comment on above: Performed By: #### Scott Lucero, GFR, BMP #### [address] [address] Basophils/100 WBC (Bld) 0.8 % Normal 0.0-2.5 [facility] ([place]) Comment on above: Performed By: #### Scott Lucero, GFR, BMP #### [address] [address] Eosinophil, Absolute 0.0 10 3/mcL Normal 0.0-0.7 [facility] ([place]) Comment on above: Performed By: #### Scott Lucero, GFR, BMP #### [address] [address] Eosinophils/100 WBC (Bld) 0.4 % Normal 0.0-6.0 [facility] ([place]) Comment on above: Performed By: #### M G, GFR, BMP #### [address] [address] Lymphocyte, Absolute 1.3 10 3/mcL Normal 0.9-4.3 [facility] ([place]) Comment on above: Performed By: #### M G, GFR, BMP #### [address] [address] Lymphocytes/100 WBC (Bld) 13.6 % Low 20.0-40.0 [facility] ([place]) Comment on above: Performed By: #### M G, GFR, BMP #### [address] [address] Monocyte, Absolute 0.9 10 3/mcL Normal 0.1-1.4 [facility] ([place]) Comment on above: Performed By: #### M G, GFR, BMP #### [address] [address] Monocytes/100 WBC (Bld) 10.0 % Normal 2.0-13.0 [facility] ([place]) Comment on above: Performed By: #### M G, GFR, BMP #### [address] [address] Neutrophils/100 WBC (Bld) 75.2 % High 50.0-75.0 [facility] ([place]) Comment on above: Performed By: #### M G, GFR, BMP #### [address] [address] .NEUABSon 04-10-2023 Neutrophil, Absolute 7.0 10 3/mcL Normal 2.3-8.1 [facility] ([place]) Comment on above: Performed By: #### M G, GFR, BMP #### [address] [address] CBCon 04-10-2023 Erythrocyte distribution width (RBC) [Ratio] 14.4 % Normal 11.5-15.5 [facility] ([place]) Comment on above: Performed By: #### P BNP #### [address] [address] Hematocrit (Bld) [Volume fraction] 36.9 % Low 40.0-52.0 [facility] ([place]) Comment on above: Performed By: #### P BNP #### [place] [address] Hgb 12.4 G/dL Low 13.0-17.5 [facility] ([place]) Comment on above: Performed By: #### P BNP #### [place] [address] MCH (RBC) [Entitic mass] 30.3 pg Normal 27.0-33.0 [facility] ([place]) Comment on above: Performed By: #### P BNP #### [place] [address] MCHC 33.7 G/dL Normal 32.0-36.0 [facility] ([place]) Comment on above: Performed By: #### P BNP #### [place] [address] MCV (RBC) [Entitic vol] 89.8 fL Normal 81.0-100.0 [facility] ([place]) Comment on above: Performed By: #### P BNP #### [place] [address] Platelet 202 10 3/mcL Normal 150-450 [facility] ([place]) Comment on above: Performed By: #### P BNP #### [place] [address] Platelet mean volume (Bld) [Entitic vol] 11.3 fL High 6.4-10.5 [facility] ([place]) Comment on above: Performed By: #### P BNP #### [place] [address] RBC 4.10 10 6/mcL Low 4.50-6.00 [facility] ([place]) Comment on above: Performed By: #### P BNP #### [place] [address] WBC 9.2 10 3/mcL Normal 4.5-10.8 [facility] ([place]) Comment on above: Performed By: #### P BNP #### [address] [address] LABORATORYOrdered By: SYSTEM SYSTEM on 04-10-2023 Basophils [...] Basophil, Absolute 0.0 10 3/mcL Normal 0.0-0.3 [facility] ([place]) Comment on above: Performed By: #### Scott Lucero, GFR, BMP #### [address] [address] Basophils/100 WBC (Bld) 0.4 % Normal 0.0-2.5 [facility] ([place]) Comment on above: Performed By: #### Scott Lucero, GFR, BMP #### [address] [address] Eosinophil, Absolute 0.0 10 3/mcL Normal 0.0-0.7 [facility] ([place]) Comment on above: Performed By: #### Scott Lucero, GFR, BMP #### [address] [address] Eosinophils/100 WBC (Bld) 0.4 % Normal 0.0-6.0 [facility] ([place]) Comment on above: Performed By: #### Scott Lucero, GFR, BMP #### [address] [address] Lymphocyte, Absolute 1.0 10 3/mcL Normal 0.9-4.3 [facility] ([place]) Comment on above: Performed By: #### Scott Lucero, GFR, BMP #### [address] [address] Lymphocytes/100 WBC (Bld) 10.8 % Low 20.0-40.0 [facility] ([place]) Comment on above: Performed By: #### Scott Lucero, GFR, BMP #### [address] [address] Monocyte, Absolute 1.0 10 3/mcL Normal 0.1-1.4 [facility] ([place]) Comment on above: Performed By: #### Scott Lucero, GFR, BMP #### [address] [address] Monocytes/100 WBC (Bld) 10.5 % Normal 2.0-13.0 [facility] ([place]) Comment on above: Performed By: #### Scott G, GFR, BMP #### [address] [address] Neutrophils/100 WBC (Bld) 77.9 % High 50.0-75.0 [facility] ([place]) Comment on above: Performed By: #### Scott G, GFR, BMP #### [address] [address] .GFRon 04-08-2023 GFR >60 Normal [facility] ([place]) Comment on above: Result Comment: GFR Population [...] By: #### Scott G, GFR, BMP #### [address] [address] GFR Non- >60 Normal [facility] ([place]) Comment on above: Result Comment: GFR Population [...] mL/min/1.73 square meters Performed By: #### M Nic, GFR, BMP #### [place] [address] .NEUABSon 04-08-2023 Neutrophil, Absolute 7.3 10 3/mcL Normal 2.3-8.1 [facility] ([place]) Comment on above: Performed By: #### M Nic, GFR, BMP #### [place] [address] CBCon 04-08-2023 Erythrocyte distribution width (RBC) [Ratio] 14.1 % Normal 11.5-15.5 [facility] ([place]) Comment on above: Performed By: #### M Nic, GFR, BMP #### [place] [address] Hematocrit (Bld) [Volume fraction] 37.6 % Low 40.0-52.0 [facility] ([place]) Comment on above: Performed By: #### Scott Lucero, GFR, BMP #### [place] [address] Hgb 12.8 G/dL Low 13.0-17.5 [facility] ([place]) Comment on above: Performed By: #### M Nic, GFR, BMP #### [place] [address] MCH (RBC) [Entitic mass] 30.4 pg Normal 27.0-33.0 [facility] ([place]) Comment on above: Performed By: #### M G, GFR, BMP #### [place] [address] MCHC 34.2 G/dL Normal 32.0-36.0 [facility] ([place]) Comment on above: Performed By: #### M G, GFR, BMP #### [place] [address] MCV (RBC) [Entitic vol] 89.0 fL Normal 81.0-100.0 [facility] ([place]) Comment on above: Performed By: #### Scott G, GFR, BMP #### [address] [address] Platelet 231 10 3/mcL Normal 150-450 [facility] ([place]) Comment on above: Performed By: #### Scott Lucero, GFR, BMP #### [address] [address] Platelet mean volume (Bld) [Entitic vol] 11.4 fL High 6.4-10.5 [facility] ([place]) Comment on above: Performed By: #### Scott Lucero, GFR, BMP #### [address] [address] RBC 4.22 10 6/mcL Low 4.50-6.00 [facility] ([place]) Comment on above: Performed By: #### Scott Lucero, GFR, BMP #### [address] [address] WBC 9.4 10 3/mcL Normal 4.5-10.8 [facility] ([place]) Comment on above: Performed By: #### Scott Lucero, GFR, BMP #### [address] [address] CMPon 04-08-2023 Albumin Level 3.0 G/dL Low 3.2-4.8 [facility] ([place]) Comment on above: Performed By: #### Scott Lucero, GFR, BMP #### [address] [address] Albumin/Globulin [Mass ratio] 1.0 {ratio} Normal 0.9-1.6 [facility] ([place]) Comment on above: Performed By: #### Scott Lucero, GFR, BMP #### [address] [address] ALP [Catalytic activity/Vol] 116 U/L Normal 38-126 [facility] ([place]) Comment on above: Performed By: #### Scott Lucero, GFR, BMP #### [address] [address] ALT [Catalytic activity/Vol] 20 U/L Normal 12-55 [facility] ([place]) Comment on above: Performed By: #### Scott Lucero, GFR, BMP #### [place] [address] AST [Catalytic activity/Vol] 15 U/L Normal 8-34 [facility] ([place]) Comment on above: Performed By: #### Scott Lucero, GFR, BMP #### [address] [address] Bili Total 0.60 mg/dL Normal 0.20-1.20 [facility] ([place]) Comment on above: Result Comment: Use of this assay is not recommended for patients undergoing treatment with eltrombopag due to the potential for falsely elevated results. Performed By: #### Scott Lucero, GFR, BMP #### [place] [id number] BUN/Creatinine Ratio 43.8 ratio High 10.0-22.0 [facility] ([place]) Comment on above: Performed By: #### Scott Lucero, GFR, BMP #### [place] [id number] Calcium [Mass/Vol] 8.8 mg/dL Normal 8.7-10.4 [facility] ([place]) Comment on above: Performed By: #### Scott Lucero, GFR, BMP #### [place] [phone] Chloride [Moles/Vol] 104 mmol/L Normal 98-110 [facility] ([place]) Comment on above: Performed By: #### Scott Lucero, GFR, BMP #### [place] [phone] CO2 [Moles/Vol] 29 mmol/L Normal 22-32 [facility] ([place]) Comment on above: Performed By: #### Scott G, GFR, BMP #### [address] [address] Creatinine [Mass/Vol] 0.89 mg/dL Normal 0.60-1.40 [facility] ([place]) Comment on above: Performed By: #### Scott G, GFR, BMP #### [address] [address] Electrolyte Balance 6.0 mEq/L Normal 4.0-15.0 [facility] ([place]) Comment on above: Performed By: #### M G, GFR, BMP #### [address] [address] Globulin 3.0 G/dL Normal 1.5-3.8 [facility] ([place]) Comment on above: Performed By: #### Scott Lucero, GFR, BMP #### [address] [address] Glucose [Mass/Vol] 252 mg/dL High 82-115 [facility] ([place]) Comment on above: Performed By: #### M Nic, GFR, BMP #### [address] [address] Potassium [Moles/Vol] 4.5 mmol/L Normal 3.5-5.0 [facility] ([place]) Comment on above: Performed By: #### Scott Lucero, GFR, BMP #### [address] [address] Sodium [Moles/Vol] 139 mmol/L Normal 136-145 [facility] ([place]) Comment on above: Performed By: #### Scott Lucero, GFR, BMP #### [address] [address] Total Protein 6.0 G/dL Normal 5.7-8.2 [facility] ([place]) Comment on above: Result Comment: No te - New Reference Range in effect 19 Performed By: #### Scott Lucero, GFR, BMP #### [address] [address] Urea nitrogen [Mass/Vol] 39.0 mg/dL High 8.0-22.0 [facility] ([place]) Comment on above: Performed By: #### Scott Lucero, GFR, BMP #### [address] [address] XR CHEST 1 VIEWon 04-08-2023 XR CHEST [...] 04/08/2023 11:45:10 AM Ordering Provider: JESUS MANUEL MELENDREZ [facility] ([place]) Laboratory - Microbiology an d Antimicrobial susceptibilityon 03-16-2023 S. aureus and MRSA panel SARAH+probe (Nose) Negative Negative [facility] Laboratory - Drug toxicology Ordered By: Walter Sellers on 02-28-2023 Amphetamines Ql (U) Negative <1000 ng/mL [facility] Benzodiazepines Ql (U) Negative < 200 ng/mL [facility] Cannabinoids Screen Ql (U) Negative < 50 ng/mL [facility] Cocaine Ql (U) Negative < 300 ng/mL [facility] Opiates Ql (U) Negative < 300 ng/mL [facility] No Panel InformationOrdered By: aWlter Sellers on 02-28-2023 MDMA (Ecstasy) Screen Negative < 500 ng/mL [facility] Miscellaneous Test See comment [facility] Comment on above: [id number] 6+OXYCODONE-B UND (ng/mL) DRUG RESULT SCREEN CUTOFF____ Amphetamines,Urine Negative ng/mL 1000 Amphetamine test includes Amphetamine and Methamphetamine.Barbiturates Negative ng/mL 200Benzodiazepines Negative ng/mL 200Cannabinoid Negative ng/mL 20Cocaine (Metab) Negative ng/mL 300Opiates Negative ng/mL 300 Opiates test includes Codeine, Morphine, Hydromorphone, Hydrocodone. Oxycodone/Oxymorphone,Urine Positive ng/mL 300 Test includes Oxycodone and Oxymorphone. Oxycodone PositiveOxycodone Conf,MS,UR 1035 ng/mL 300 Oxymorphone Negative 300 TESTING PERFORMED AT [facility]. ORIGINAL REPORT ON FILE IN LAB CONTAINS ADDITIONAL TEST SITE INFORMATION. Urine Barbiturates Screen Negative < 200 ng/mL [facility] Urine Drug Screen Comment [facility] Comment on above: CONFIRMATORY TESTING FOR ALL [...] Urine Methadone Screen Negative < 300 ng/mL [facility] Urine phencyclidine (PCP) de tectionOrdered By: Walter Sellers on 02-28-2023 Phencyclidine Ql (U) Negative < 25 ng/mL [facility] CBC W Auto Differential pane l (Bld)on 11-30-2022 Basophils (Bld) [#/Vol] 0.04 10*3/uL <0.11 k/uL [facility] Basophils/100 WBC (Bld) 0.4 % [facility] Differential cell count method Nom (Bld) Auto [facility] Eosinophils (Bld) [#/Vol] <0.46 k/uL [facility] Eosinophils/100 WBC (Bld) 0.1 % [facility] Erythrocyte distribution width (RBC) [Ratio] 14.0 % 11.5 - 15.0 % [facility] Hematocrit (Bld) [Volume fraction] 42.3 % 39.0 - 51.0 % [facility] Hemoglobin (Bld) [Mass/Vol] 13.9 g/dL 13.0 - 17.0 g/dL [facility] Immature granulocytes (Bld) [#/Vol] 0.05 10*3/uL <0.10 k/uL [facility] Immature granulocytes/100 WBC (Bld) 0.5 % [facility] Lymphocytes (Bld) [#/Vol] 1.62 10*3/uL 1.00 - 4.00 k/uL [facility] Lymphocytes/100 WBC (Bld) 17.1 % [facility] MCH (RBC) [Entitic mass] 30.2 pg 26.0 - 34.0 pg [facility] MCHC (RBC) [Mass/Vol] 32.9 g/dL 30.5 - 36.0 g/dL [facility] MCV (RBC) [Entitic vol] 92.0 fL 80.0 - 100.0 fL [facility] Monocytes (Bld) [#/Vol] 0.78 10*3/uL <0.87 k/uL [facility] Monocytes/100 WBC (Bld) 8.2 % [facility] Neutrophils (Bld) [#/Vol] 6.96 10*3/uL 1.45 - 7.50 k/uL [facility] Neutrophils/100 WBC (Bld) 73.7 % [facility] Nucleated RBC (Bld) [#/Vol] <0.01 k/uL [facility] Nucleated RBC/100 WBC (Bld) [Ratio] 0.0 /100 WBC [facility] Platelet mean volume (Bld) [Entitic vol] 11.5 fL 9.0 - 12.7 fL [facility] Platelets (Bld) [#/Vol] 207 10*3/uL 150 - 400 k/uL [facility] RBC (Bld) [#/Vol] 4.60 10*6/uL 4.20 - 6.00 m/uL [facility] WBC (Bld) [#/Vol] 9.46 10*3/uL 3.70 - 11.00 k/uL [facility] No Panel Informationon 11-17 [facility] XR Chest PA and Lateralon IMPRESSION: Stable exam without acute findings. Multi Disciplined Language Analyst: TOMMY Transcribe Date/Time: Oct 26 2022 3:48P Dictated by : MADAN ZACARIAS MD This examination was interpreted and the report reviewed and electronically signed by: MADAN ZACARIAS MD on Oct 26 2022 3:49PM [facility] DIVISION OF RADIOLOGY * * *Final Report* [...] and degenerative changes. DIVISION OF RADIOLOGY Provider, [facility] - 10/26/2022 * * *Final Report* * [...] IMPRESSION IMPRESSION: Stable exam without acute findings. Multi Disciplined Language Analyst: TOMMY Transcribe Date/Time: Oct 26 2022 3:48P Dictated by : MADAN ZACARIAS MD This examination was interpreted and the report reviewed and electronically signed by: MADAN ZACARIAS MD on Oct 26 2022 3:49PM [facility] XR Chest PA and LateralOrder ed By: [facility] Provider on 10-26-2022 [facility] CBC W Auto Differential pane l (Bld)on 10-25-2022 Basophils (Bld) [#/Vol] 0.06 10*3/uL <0.11 k/uL [facility] Basophils/100 WBC (Bld) 0.4 % [facility] Differential cell count method Nom (Bld) Auto [facility] Eosinophils (Bld) [#/Vol] 0.06 10*3/uL <0.46 k/uL [facility] Eosinophils/100 WBC (Bld) 0.4 % [facility] Erythrocyte distribution width (RBC) [Ratio] 13.2 % 11.5 - 15.0 % [facility] Hematocrit (Bld) [Volume fraction] 48.7 % 39.0 - 51.0 % [facility] Hemoglobin (Bld) [Mass/Vol] 16.1 g/dL 13.0 - 17.0 g/dL [facility] Immature granulocytes (Bld) [#/Vol] 0.06 10*3/uL <0.10 k/uL [facility] Immature granulocytes/100 WBC (Bld) 0.4 % [facility] Lymphocytes (Bld) [#/Vol] 1.44 10*3/uL 1.00 - 4.00 k/uL [facility] Lymphocytes/100 WBC (Bld) 10.3 % [facility] MCH (RBC) [Entitic mass] 30.4 pg 26.0 - 34.0 pg [facility] MCHC (RBC) [Mass/Vol] 33.1 g/dL 30.5 - 36.0 g/dL [facility] MCV (RBC) [Entitic vol] 91.9 fL 80.0 - 100.0 fL [facility] Monocytes (Bld) [#/Vol] 1.54 10*3/uL High <0.87 k/uL [facility] Monocytes/100 WBC (Bld) 11.0 % [facility] Neutrophils (Bld) [#/Vol] 10.84 10*3/uL High 1.45 - 7.50 k/uL [facility] Neutrophils/100 WBC (Bld) 77.5 % [facility] Nucleated RBC (Bld) [#/Vol] <0.01 k/uL [facility] Nucleated RBC/100 WBC (Bld) [Ratio] 0.0 /100 WBC [facility] Platelet mean volume (Bld) [Entitic vol] 11.6 fL 9.0 - 12.7 fL [facility] Platelets (Bld) [#/Vol] 270 10*3/uL 150 - 400 k/uL [facility] RBC (Bld) [#/Vol] 5.30 10*6/uL 4.20 - 6.00 m/uL [facility] WBC (Bld) [#/Vol] 14.00 10*3/uL High 3.70 - 11.00 k/uL [facility] XR Chest PA and Lateralon Radiology Study observation (narrative) [facility] Absolute lymphocyte countOrd ered By: Shanna Govea on 10-11-2022 Lymphocytes Auto (Unsp spec) [#/Vol] 2.03 10*3/uL 0.83-4.51 [facility] Basophil percentageOrdered B y: Shanna Govea on 10-11-2022 Basophils/100 WBC (Bld) 0.6 % 0-1 [facility] Chloride [Moles/Vol] 104 mmol/L 98-107 [facility] Eosinophils/100 WBC (Bld) 0.3 % 0-5 [facility] Glucose [Mass/Vol] 162 mg/dL 74-106 [facility] Comment on above: Fasting Glucose resu lt greater than or equal to 126 mg/dL suggests DIABETES MELLITUS per A.D.A. criteria. Neutrophils (Bld) [#/Vol] 8.9 10*3/uL 2.0-7.7 [facility] Neutrophils/100 WBC (Bld) 71.3 % 47-70 [facility] Potassium [Moles/Vol] 3.7 mmol/L 3.5-5.1 [facility] Sodium [Moles/Vol] 137 mmol/L 136-145 [facility] WBC (Bld) [#/Vol] 12.5 10*3/uL 4.4-11.0 [facility] Blood erythrocytes count (nu mber/volume)Ordered By: Shanna Govea on 10-11-2022 RBC (Bld) [#/Vol] 5.02 10*6/uL 4.6-6.2 [facility] Blood hemoglobin measurement (mass/volume)Ordered By: Shanna Govea on 10-11-2022 Hemoglobin (Bld) [Mass/Vol] 15.3 g/dL 13.0-16.5 [facility] Blood lymphocytes/100 leukoc ytesOrdered By: Shanna Govea on 10-11-2022 Lymphocytes/100 WBC (Bld) 16.2 % 19-41 [facility] Blood monocytes/100 leukocyt esOrdered By: Shanna Govea on 10-11-2022 Monocytes/100 WBC (Bld) 10.1 % 0-10 [facility] Blood platelet mean volumeOr dered By: Shanna Govea on 10-11-2022 Platelet mean volume (Bld) [Entitic vol] 10.9 fL 6.2-12.0 [facility] Determination of erythrocyte mean corpuscular volume (MCV)Ordered By: Shanna Govea on 10-11-2022 MCV (RBC) [Entitic vol] 91.6 fL 80-94 [facility] Glucose Glucometer (dC) [M ass/Vol]Ordered By: Shanna Govea on 10-11-2022 Glucose [Mass/Vol] 157 mg/dL 74-106 [facility] Comment on above: MANAGEMENT OF PATIEN T CARE PER NURSING PROTOCOL Hematocrit Auto (Bld) [Volum e fraction]Ordered By: Shanna Govea on 10-11-2022 Hematocrit (Bld) [Volume fraction] 46.0 % 40-54 [facility] Laboratory - Chemistry and C hemistry - challengeOrdered By: Shanna Govea on 10-11-2022 CO2 [Moles/Vol] 27.0 mmol/L 21.0-32.0 [facility] Urea nitrogen/Creatinine [Mass ratio] 26.0 mg/mg 10-20 [facility] Laboratory - Hematology and Cell countsOrdered By: Shanna Govea on 10-11-2022 Erythrocyte distribution width (RBC) [Entitic vol] 42.8 fL 35.1-43.9 [facility] Erythrocyte distribution width (RBC) [Ratio] 12.7 % 11.6-14.6 [facility] Immature granulocytes/100 WBC (Bld) 1.500 % 0.0-0.9 [facility] Comment on above: IG% - Immature Granu locytes (promyelocytes, myelocytes and metamyelocytes) > 1% indicates that a LEFT SHIFT is Present. MCH (RBC) [Entitic mass] 30.5 pg 27.0-32.0 [facility] Nucleated RBC/100 WBC (Bld) [Ratio] 0 % 0-5 [facility] MCHC Auto (RBC) [Mass/Vol]Or dered By: Shanna Govea on 10-11-2022 MCHC (RBC) [Mass/Vol] 33.3 g/dL 32-36 [facility] No Panel InformationOrdered By: Shanna Govea on 10-11-2022 Estimated Creatinine Clearance Calc 65.12 ml/min [facility] Estimated GFR (MDRD) Amer 107 mL/min >60 [facility] Comment on above: GFR Calc Estimated GFR (MDRD) Non-Af Amer 89 mL/min >60 [facility] Comment on above: Non- GFR Calc Platelets bldOrdered By: Ree Govea on 10-11-2022 Platelets (Bld) [#/Vol] 216 10*3/uL 150-450 [facility] Serum or plasma calcium zay urement (mass/volume)Ordered By: Shanna Govea on 10-11-2022 Calcium [Mass/Vol] 9.3 mg/dL 8.5-10.1 [facility] Serum or plasma creatinine m easurement (mass/volume)Ordered By: Shanna Govea on 10-11-2022 Creatinine [Mass/Vol] 0.92 mg/dL 0.70-1.30 [facility] Comment on above: The validity of the calculated GFR & GFRAA in patients over 70 years has not been determined. Clinical correlation is essential. Serum or plasma urea nitroge n measurement (mass/volume)Ordered By: Shanna Govea on 10-11-2022 Urea nitrogen [Mass/Vol] 24 mg/dL 7-18 [facility] Thin prep Papanicolaou smear with manual screeningOrdered By: Shanna Govea on 10-11-2022 Thin prep Papanicolaou smear with manual screening 6 5-15 [facility] No Panel InformationOrdered By: Josefina Khan on 10-10-2022 Troponin I High Sensitivity 118 pg/mL 3.0-78.0 [facility] Comment on above: Please Note: [place] t Units and Gender Specific Reference Ranges. For more information see Policy Stat Procedure [place] High Sensitivity Troponin (TNIH) and attachments. Absolute lymphocyte countOrd ered By: Malia Alcala on 10-09-2022 Lymphocytes Auto (Unsp spec) [#/Vol] 1.73 10*3/uL 0.83-4.51 [facility] Basophil percentageOrdered B y: Malia Alcala on 10-09-2022 Basophils/100 WBC (Bld) 0.6 % 0-1 [facility] Chloride [Moles/Vol] 105 mmol/L 98-107 [facility] Eosinophils/100 WBC (Bld) 1.2 % 0-5 [facility] Glucose [Mass/Vol] 106 mg/dL 74-106 [facility] Comment on above: Fasting Glucose resu lt from 100 to 125 mg/dL suggests IMPAIRED HOMEOSTASIS per A.D.A. criteria. Neutrophils (Bld) [#/Vol] 8.1 10*3/uL 2.0-7.7 [facility] Neutrophils/100 WBC (Bld) 72.5 % 47-70 [facility] Potassium [Moles/Vol] 4.1 mmol/L 3.5-5.1 [facility] Sodium [Moles/Vol] 137 mmol/L 136-145 [facility] WBC (Bld) [#/Vol] 11.1 10*3/uL 4.4-11.0 [facility] Blood erythrocytes count (nu mber/volume)Ordered By: Malia Alcala on 10-09-2022 RBC (Bld) [#/Vol] 4.89 10*6/uL 4.6-6.2 [facility] Blood hemoglobin measurement (mass/volume)Ordered By: Malia Alcala on 10-09-2022 Hemoglobin (Bld) [Mass/Vol] 14.7 g/dL 13.0-16.5 [facility] Blood lymphocytes/100 leukoc ytesOrdered By: Malia Alcala on 10-09-2022 Lymphocytes/100 WBC (Bld) 15.5 % 19-41 [facility] Blood monocytes/100 leukocyt esOrdered By: Malia Alcala on 10-09-2022 Monocytes/100 WBC (Bld) 9.4 % 0-10 [facility] Blood platelet mean volumeOr dered By: Malia lAcala on 10-09-2022 Platelet mean volume (Bld) [Entitic vol] 10.6 fL 6.2-12.0 [facility] Determination of erythrocyte mean corpuscular volume (MCV)Ordered By: Malia Alcala on 10-09-2022 MCV (RBC) [Entitic vol] 91.2 fL 80-94 [facility] Hematocrit Auto (Bld) [Volum e fraction]Ordered By: Malia Alcala on 10-09-2022 Hematocrit (Bld) [Volume fraction] 44.6 % 40-54 [facility] Influenza virus A and B and SARS-CoV-2 (COVID-19) Ag panel - Upper respiratory specimOrdered By: Malia Alcala on 10-09-2022 SARS-CoV-2 (COVID-19) RNA SARAH+probe Ql (Resp) [facility] Laboratory - Chemistry and C hemistry - challengeOrdered By: Malia Alcala on 10-09-2022 CO2 [Moles/Vol] 26.0 mmol/L 21.0-32.0 [facility] Natriuretic peptide B (Bld) [Mass/Vol] 73.1 pg/mL 0-100 [facility] Urea nitrogen/Creatinine [Mass ratio] 26.4 mg/mg 10-20 [facility] Laboratory - Hematology and Cell countsOrdered By: Malia Alcala on 10-09-2022 Erythrocyte distribution width (RBC) [Entitic vol] 42.2 fL 35.1-43.9 [facility] Erythrocyte distribution width (RBC) [Ratio] 12.7 % 11.6-14.6 [facility] Immature granulocytes/100 WBC (Bld) 0.800 % 0.0-0.9 [facility] Comment on above: IG% - Immature Granu locytes (promyelocytes, myelocytes and metamyelocytes) > 1% indicates that a LEFT SHIFT is Present. MCH (RBC) [Entitic mass] 30.1 pg 27.0-32.0 [facility] Nucleated RBC/100 WBC (Bld) [Ratio] 0 % 0-5 [facility] MCHC Auto (RBC) [Mass/Vol]Or dered By: Malia Alcala on 10-09-2022 MCHC (RBC) [Mass/Vol] 33.0 g/dL 32-36 [facility] No Panel InformationOrdered By: Malia Alcala on 10-09-2022 Troponin I High Sensitivity 122 pg/mL 3.0-78.0 [facility] Comment on above: Critical Result(s) C alled at: 19:59:33 10/09/2022 by: Shellie Hobson to Negrito Vela. Results read back by same. Please Note: New Test Units and Gender Specific Reference Ranges. For more information see Policy Stat Procedure [place] High Sensitivity Troponin (TNIH) and attachments. Estimated Creatinine Clearance Calc 68.86 ml/min [facility] Estimated GFR (MDRD) Amer 115 mL/min >60 [facility] Comment on above: GFR Calc Estimated GFR (MDRD) Non-Af Amer 95 mL/min >60 [facility] Comment on above: Non- GFR Calc Platelets bldOrdered By: Zenaida Alcala on 10-09-2022 Platelets (Bld) [#/Vol] 229 10*3/uL 150-450 [facility] Serum or plasma calcium zay urement (mass/volume)Ordered By: Malia Alcala on 10-09-2022 Calcium [Mass/Vol] 9.5 mg/dL 8.5-10.1 [facility] Serum or plasma creatinine m easurement (mass/volume)Ordered By: Malia Alcala on 10-09-2022 Creatinine [Mass/Vol] 0.87 mg/dL 0.70-1.30 [facility] Comment on above: The validity of the calculated GFR & GFRAA in patients over 70 years has not been determined. Clinical correlation is essential. Serum or plasma urea nitroge n measurement (mass/volume)Ordered By: Malia Alcala on 10-09-2022 Urea nitrogen [Mass/Vol] 23 mg/dL 08-30 [facility] Thin prep Papanicolaou smear with manual screeningOrdered By: Malia Alcala on 10-09-2022 Thin prep Papanicolaou smear with manual screening 6 -15 [facility] ECHOon 09-30-[address] [facility] [address] LUNG SCREEN WO IVCONon [facility] XR Pelvis and Hip - left AP and Lateral frogon 07-04-2022 IMPRESSION: No acute osseous abnormality Multi Disciplined Language Analyst: TOMMY Transcribe Date/Time: Jul 04 2022 3:14P Dictated by : LILIA MITCHELL MD This examination was interpreted and the report reviewed and electronically signed by: LILIA MITCHELL MD on Jul 04 2022 3:15PM EST DIVISION OF RADIOLOGY * * *Final [...] calcifications are noted. DIVISION OF RADIOLOGY Provider, [facility] - 07/04/2022 * * *Final Report* * [...] noted. IMPRESSION IMPRESSION: No acute osseous abnormality Multi Disciplined Language Analyst: TOMMY Transcribe Date/Time: Jul 04 2022 3:14P Dictated by : LILIA MITCHELL MD This examination was interpreted and the report reviewed and electronically signed by: LILIA MITCHELL MD on Jul 04 2022 3:15PM EST [facility] Radiology Study observation (narrative) [facility] XR Pelvis and Hip - left AP and Lateral frogOrdered By: [facility] Provider on 07-04-2022 [facility] Laboratory - Drug toxicology Ordered By: Dr. Sellers on 03-09-2022 Amphetamines Ql (U) Negative <1000 ng/mL [facility] Benzodiazepines Ql (U) Negative < 200 ng/mL [facility] Cannabinoids Screen Ql (U) Negative < 50 ng/mL [facility] Cocaine Ql (U) Negative < 300 ng/mL [facility] Opiates Ql (U) Positive < 300 ng/mL [facility] No Panel InformationOrdered By: Dr. Sellers on 03-09-2022 MDMA (Ecstasy) Screen Negative < 500 ng/mL [facility] Miscellaneous Test See comment [facility] Comment on above: [id number] 6+OXYCODONE-B UND (ng/mL) DRUG RESULT SCREEN CUTOFF____ [...] Conf,MS,UR 457 ng/mL 300 TESTING PERFORMED AT [facility]. ORIGINAL REPORT ON FILE IN LAB CONTAINS ADDITIONAL TEST SITE INFORMATION. Urine Barbiturates Screen Negative < 200 ng/mL [facility] Urine Drug Screen Comment [facility] Comment on above: CONFIRMATORY TESTING FOR ALL [...] Urine Methadone Screen Negative < 300 ng/mL [facility] Urine phencyclidine (PCP) de tectionOrdered By: Dr. Sellers on 03-09-2022 Phencyclidine Ql (U) Negative < 25 ng/mL [facility] - Drug toxicology on 06-23-2021 Amphetamines Ql (U) Negative <1000 ng/mL [facility] Work Phone: Benzodiazepines Ql (U) Negative < 200 ng/mL [facility] Work Phone: Cannabinoids Screen Ql (U) Negative < 50 ng/mL [facility] Work Phone: Cocaine Ql (U) Negative < 300 ng/mL [facility] Work Phone: Opiates Ql (U) Positive < 300 ng/mL [facility] Work Phone: No Panel Informationon 06-23 MDMA (Ecstasy) Screen Negative < 500 ng/mL [facility] Work Phone: Miscellaneous Test See comment [facility] Work Phone: Comment on above: [id number] 6+OXYCODONE-B UND (ng/mL) DRUG RESULT SCREEN CUTOFF____ [...] 300 Oxymorphone Negative 300 TESTING PERFORMED AT [facility]. ORIGINAL REPORT ON FILE IN LAB CONTAINS ADDITIONAL TEST SITE INFORMATION. Urine Barbiturates Screen Negative < 200 ng/mL [facility] Work Phone: Urine Drug Screen Comment [facility] Work Phone: Comment on above: CONFIRMATORY TESTING [...] Urine Methadone Screen Negative < 300 ng/mL [facility] Work Phone: Urine phencyclidine (PCP) de tectionon 06-23-2021 Phencyclidine Ql (U) Negative < 25 ng/mL [facility] Work Phone: XR Chest PA and Lateralon IMPRESSION: No acute radiographic abnormality. Multi Disciplined Language Analyst: TOMMY Transcribe Date/Time: Dec 28 2020 4:46P Dictated by : LILIA MITCHELL MD This examination was interpreted and the report reviewed and electronically signed by: LILIA MITCHELL MD on Dec 28 2020 4:48PM EST DIVISION OF RADIOLOGY * * *Final [...] lower thoracic spine. DIVISION OF RADIOLOGY Provider, [facility] - 12/28/2020 * * *Final Report* * [...] spine. IMPRESSION IMPRESSION: No acute radiographic abnormality. Multi Disciplined Language Analyst: PSCB Transcribe Date/Time: Dec 28 2020 4:46P Dictated by : LILIA MITCHELL MD This examination was interpreted and the report reviewed and electronically signed by: LILIA MITCHELL MD on Dec 28 2020 4:48PM EST [facility] Radiology Study observation (narrative) [facility] XR Chest PA and LateralOrder ed By: [facility] Provider on 12-28-2020 [facility] XR Wrist - left PA and Later al and Obliqueon 04-15-2020 IMPRESSION: No acute osseous abnormality identified. Positive ulnar variance. Multi Disciplined Language Analyst: TOMMY Transcribe Date/Time: Apr 15 2020 4:13P Dictated by : KAREL ELLIOTT MD This examination was interpreted and the report reviewed and electronically signed by: KAREL ELLIOTT MD on Apr 15 2020 4:15PM [facility] DIVISION OF RADIOLOGY * * *Final Report* [...] soft tissue abnormality. DIVISION OF RADIOLOGY Provider, [facility] - 04/15/2020 * * *Final Report* * [...] acute osseous abnormality identified. Positive ulnar variance. Multi Disciplined Language Analyst: [facility] Transcribe Date/Time: Apr 15 2020 4:13P Dictated by : KAREL ELLIOTT MD This examination was interpreted and the report reviewed and electronically signed by: KAREL ELLIOTT MD on Apr 15 2020 4:15PM EST [facility] Radiology Study observation (narrative) [facility] XR Wrist - left PA and Later al and ObliqueOrdered By: [facility] Provider on 04-15-2020 [facility] No Panel Information [facility] Vital Signs Date Time Vital Sign Value Performing Clinician Annika ramirez 09-09-2024 10:57-0400 Body height 154.9 cm Amauri Jo COMMERCIAL LINES ACCOUNT EXECUTIVE.[employer] Work Phone: [facility] 09-09-2024 10:57-0400 Body mass index (BMI) [Ratio] 47.24 kg/m2 Amauri Jo COMMERCIAL LINES ACCOUNT EXECUTIVE.[employer] Work Phone: [facility] 09-09-2024 10:57-0400 Body weight 113.4 kg Amauri Jo COMMERCIAL LINES ACCOUNT EXECUTIVE.[employer] Work Phone: [facility] 09-09-2024 10:57-0400 Diastolic blood pressure 82 mm[Hg] Amauri Hernandezter COMMERCIAL [employer]ES ACCOUNT EXECUTIVE.[employer] Work Phone: [facility] 09-09-2024 10:57-0400 Heart rate 64 /min Amauri Jo [employer]ERCIAL [employer]ES ACCOUNT EXECUTIVE.[employer] Work Phone: [facility] 09-09-2024 10:57-0400 Respiratory rate 16 /min Amauri Jo COMMERCIAL LINES ACCOUNT EXECUTIVE.[employer] Work Phone: [facility] 09-09-2024 10:57-0400 SaO2% (BldA) [Mass fraction] 93 % Amauri Jo COMMERCIAL LINES ACCOUNT EXECUTIVE.[employer] Work Phone: [facility] 09-09-2024 10:57-0400 Systolic blood pressure 138 mm[Hg] Amauri Hernandezter COMMERCIAL LINES ACCOUNT EXECUTIVE.[employer] Work Phone: [facility] 08-07-2024 09:42-0400 Diastolic blood pressure 73 mm[Hg] Angela Schmid COMMERCIAL LINES ACCOUNT EXECUTIVE.[employer] Work Phone: [facility] 08-07-2024 09:42-0400 Heart rate 59 /min Angela Haagen COMMERCIAL LINES ACCOUNT EXECUTIVE.[employer] Work Phone: [facility] 08-07-2024 09:42-0400 Respiratory rate 16 /min Angela Haagen COMMERCIAL LINES ACCOUNT EXECUTIVE.[employer] Work Phone: [facility] 08-07-2024 09:42-0400 SaO2% (BldA) [Mass fraction] 95 % Angela Haagen COMMERCIAL LINES ACCOUNT EXECUTIVE.[employer] Work Phone: [facility] 08-07-2024 09:42-0400 Systolic blood pressure 133 mm[Hg] Angela Haagen COMMERCIAL LINES ACCOUNT EXECUTIVE.[employer] Work Phone: [facility] 02-08-2024 11:39-0500 Body mass index (BMI) [Ratio] 44.11 kg/m2 Margi Suppan COMMERCIAL LINES ACCOUNT EXECUTIVE.[employer] Work Phone: [facility] 02-08-2024 11:39-0500 Body temperature 98.01 [degF] Margi Suppan COMMERCIAL LINES ACCOUNT EXECUTIVE.[employer] Work Phone: [facility] 02-08-2024 11:39-0500 Body weight 116.57 kg Margi Suppan COMMERCIAL LINES ACCOUNT EXECUTIVE.[employer] Work Phone: [facility] 02-08-2024 11:39-0500 Diastolic blood pressure 76 mm[Hg] Margi Suppan COMMERCIAL LINES ACCOUNT EXECUTIVE.[employer] Work Phone: [facility] 02-08-2024 11:39-0500 Heart rate 64 /min Margi Suppan COMMERCIAL LINES ACCOUNT EXECUTIVE.[employer] Work Phone: [facility] 02-08-2024 11:39-0500 Respiratory rate 16 /min Margi Suppan COMMERCIAL LINES ACCOUNT EXECUTIVE.[employer] Work Phone: [facility] 02-08-2024 11:39-0500 SaO2% (BldA) [Mass fraction] 96 % Margi Suppan COMMERCIAL LINES ACCOUNT EXECUTIVE.[employer] Work Phone: [facility] 02-08-2024 11:39-0500 Systolic blood pressure 124 mm[Hg] Margi Suppan COMMERCIAL LINES ACCOUNT EXECUTIVE.[employer] Work Phone: [facility] 07-05-2023 13:12-0400 Body mass index (BMI) [Ratio] 39.48 kg/m2 Angela Haagen COMMERCIAL LINES ACCOUNT EXECUTIVE.[employer] Work Phone: [facility] 07-05-2023 13:12-0400 Body weight 104.33 kg Angela Haagen COMMERCIAL LINES ACCOUNT EXECUTIVE.[employer] Work Phone: [facility] 07-05-2023 13:12-0400 Diastolic blood pressure 70 mm[Hg] Angela Haagen COMMERCIAL LINES ACCOUNT EXECUTIVE.[employer] Work Phone: [facility] 07-05-2023 13:12-0400 Heart rate 81 /min Angela Haagen COMMERCIAL LINES ACCOUNT EXECUTIVE.[employer] Work Phone: [facility] 07-05-2023 13:12-0400 Respiratory rate 16 /min Angela Haagen COMMERCIAL LINES ACCOUNT EXECUTIVE.[employer] Work Phone: [facility] 07-05-2023 13:12-0400 Systolic blood pressure 116 mm[Hg] Angela Haagen COMMERCIAL LINES ACCOUNT EXECUTIVE.[employer] Work Phone: [facility] 07-03-2023 10:14-0400 Body height 162.6 cm Laurel Aradine DO Work Phone: [facility] 07-03-2023 10:14-0400 Body mass index (BMI) [Ratio] 39.58 kg/m2 Laurel Aradine DO Work Phone: [facility] 07-03-2023 10:140400 Body weight 104.6 kg Laurel Aradine DO Work Phone: [facility] 07-03-2023 10:14-0400 Diastolic blood pressure 68 mm[Hg] Laurel Aradine DO Work Phone: [facility] 07-03-2023 10:14-0400 Heart rate 81 /min Laurel Aradine DO Work Phone: [facility] 07-03-2023 10:14-0400 Respiratory rate 20 /min Laurel Aradine DO Work Phone: [facility] 07-03-2023 10:14-0400 Systolic blood pressure 145 mm[Hg] Laurel Pierce DO Work Phone: [facility] 06-24-2023 14:00-0400 Inhaled oxygen flow rate 0 L/min Dr. Alyson Arthur Work Phone: 5(791)079-147884 [place] [address] 06-24-2023 14:00-0400 SaO2% (BldA) [Mass fraction] 93 % Dr. Alyson Arthur Work Phone: 6(757)795-470884 [place] [address] 06-24-2023 12:35-0400 Body temperature 97.6 [degF] Dr. lAyson Arthur Work Phone: 8(491)895-798284 [place] [address] 06-24-2023 12:35-0400 Diastolic blood pressure 72 mm[Hg] Dr. Alyson Arthur Work Phone: 7(319)679-024584 [place] [address] 06-24-2023 12:35-0400 Heart rate 96 /min Dr. Alyson Arthur Work Phone: 3(078)190-129684 [place] [address] 06-24-2023 12:35-0400 Respiratory rate 16 /min Dr. Alyson Arthur Work Phone: 7(173)916-581284 [place] [address] 06-24-2023 12:35-0400 Systolic blood pressure 146 mm[Hg] Dr. Alyson Arthur Work Phone: 5(635)478-897584 [place] [address] 06-23-2023 09:35-0400 Body height 162.[address] Alyson Arthur Work Phone: 6(039)456-436684 [place] [address] 06-23-2023 09:35-0400 Body weight 110.[address] Alyson Arthur Work Phone: 4(683)808-250084 [place] [address] 06-22-2023 18:30-0400 Body mass index (BMI) [Ratio] 47.5 kg/m2 Dr. Alyson Arthur Work Phone: 3(601)395-266584 [place] [address] 06-22-2023 18:15-0400 Diastolic blood pressure 73 mm[Hg] Dr. Alyson Arthur Work Phone: 6(765)305-910984 [place] [address] 06-22-2023 18:15-0400 Systolic blood pressure 107 mm[Hg] Dr. Alyson Arthur Work Phone: [facility] 06-22-2023 17:59-0400 Body temperature 97.2 [degF] Dr. Alyson Arthur Work Phone: [facility] 06-22-2023 17:59-0400 Heart rate 88 /min Dr. Alyson Arthur Work Phone: [facility] 06-22-2023 17:59-0400 Respiratory rate 16 /min Dr. Alyson Arthur Work Phone: [facility] 06-22-2023 17:59-0400 SaO2% (BldA) [Mass fraction] 92 % Dr. Alyson rAthur Work Phone: [facility] 06-22-2023 14:08-0400 Body height 157.[address] Alyson Arthur Work Phone: [facility] 06-22-2023 14:08-0400 Body mass index (BMI) [Ratio] 44.9 kg/m2 Dr. Alyson Arthur Work Phone: [facility] 06-22-2023 14:08-0400 Body weight 111.[address] Alyson Arthur Work Phone: [facility] 06-06-2023 15:29-0400 Body height 154.9 cm Kiel Barnes MD Work Phone: [facility] 06-06-2023 15:29-0400 Body mass index (BMI) [Ratio] 46.29 kg/m2 Kiel Barnes MD Work Phone: [facility] 06-06-2023 15:29-0400 Body weight 111.13 kg Kiel Barnes MD Work Phone: [facility] 06-06-2023 15:29-0400 Diastolic blood pressure 64 mm[Hg] Kiel Barnes MD Work Phone: [facility] 06-06-2023 15:29-0400 Heart rate 83 /min Kiel Barnes MD Work Phone: [facility] 06-06-2023 15:29-0400 SaO2% (BldA) [Mass fraction] 92 % Kiel Barnes MD Work Phone: [facility] 06-06-2023 15:29-0400 Systolic blood pressure 120 mm[Hg] Kiel Barnes MD Work Phone: [facility] 05-29-2023 12:38-0400 Body temperature 98.8 [degF] Jim Pendlebury COMMERCIAL LINES ACCOUNT EXECUTIVE.[employer] Work Phone: [facility] 05-29-2023 12:38-0400 Diastolic blood pressure 68 mm[Hg] Jim Pendlebury COMMERCIAL LINES ACCOUNT EXECUTIVE.[employer] Work Phone: [facility] 05-29-2023 12:38-0400 Heart rate 70 /min Jim Pendlebury COMMERCIAL LINES ACCOUNT EXECUTIVE.[employer] Work Phone: [facility] 05-29-2023 12:38-0400 Respiratory rate 18 /min Jim Pendlebury COMMERCIAL LINES ACCOUNT EXECUTIVE.[employer] Work Phone: [facility] 05-29-2023 12:38-0400 SaO2% (BldA) [Mass fraction] 93 % Jim Pendlebury COMMERCIAL LINES ACCOUNT EXECUTIVE.[employer] Work Phone: [facility] 05-29-2023 12:38-0400 Systolic blood pressure 126 mm[Hg] Jim Pendlebury COMMERCIAL LINES ACCOUNT EXECUTIVE.[employer] Work Phone: [facility] 05-22-2023 09:36-0400 Diastolic blood pressure 74 mm[Hg] Alyson Arthur MD Work Phone: [facility] 05-22-2023 09:36-0400 Heart rate 106 /min Alyson Arthur MD Work Phone: [facility] 05-22-2023 09:36-0400 Systolic blood pressure 151 mm[Hg] Alyson Arthur MD Work Phone: [facility] 05-20-2023 08:16-0400 Heart rate 88 /min MALIA BECERRIL DO [facility] 05-20-2023 08:07-0400 Blood Pressure Cuff Size MALIA NGOATZLE DO [facility] 05-20-2023 08:07-0400 Blood Pressure Location MALIA NGOATZLE DO [facility] 05-20-2023 08:07-0400 Blood Pressure Method MALIA NGOATZLE DO [facility] 05-20-2023 08:07-0400 Body temperature 97.52 [degF] MALIA NGOATZLE DO [facility] 05-20-2023 08:07-0400 Diastolic Blood Pressure Non-Invasive 64 mm[Hg] MALIA NGOATZLE DO [facility] 05-20-2023 08:07-0400 Heart rate 88 /min MALIA NGOATZLE DO [facility] 05-20-2023 08:07-0400 Reason For Taking VItal Signs MALIA NGOATZLE DO [facility] 05-20-2023 08:07-0400 Respiratory rate 18 /min MALIA NGOATZLE DO [facility] 05-20-2023 08:07-0400 Systolic Blood Pressure Non-Invasive 118 mm[Hg] MALIA NGOATZLE DO [facility] 05-20-2023 06:38-0400 Body weight 117 kg MALIA NGOATZLE DO [facility] 05-20-2023 00:29-0400 Blood Pressure Cuff Size MALIA NGOATZLE DO [facility] 05-20-2023 00:29-0400 Blood Pressure Location MALIA NGOATZLE DO [facility] 05-20-2023 00:29-0400 Blood Pressure Method MALIA NGOATZLE DO [facility] 05-20-2023 00:29-0400 Body temperature 97.52 [degF] MALIA NGOATZLE DO [facility] 05-20-2023 00:29-0400 Diastolic Blood Pressure Non-Invasive 68 mm[Hg] MALIA NGOATZLE DO [facility] 05-20-2023 00:29-0400 Heart rate 90 /min MALIA NGOATZLE DO [facility] 05-20-2023 00:29-0400 Reason For Taking VItal Signs MALIA RUSHLE DO [facility] 05-20-2023 00:29-0400 Respiratory rate 18 /min MALIA NGOATZLE DO [facility] 05-20-2023 00:29-0400 Systolic Blood Pressure Non-Invasive 118 mm[Hg] MALIA NGOATZLE DO [facility] 05-19-2023 21:24-0400 Body temperature 96.98 [degF] MALIA NGOATZLE DO [facility] 05-19-2023 21:24-0400 Diastolic Blood Pressure Non-Invasive 86 mm[Hg] MALIA HUBERATZLE DO [facility] 05-19-2023 21:24-0400 Heart rate 89 /min MALIA HUBERATZLE DO [facility] 05-19-2023 21:24-0400 Respiratory rate 19 /min MALIA HUBERATZLE DO [facility] 05-19-2023 21:24-0400 Systolic Blood Pressure Non-Invasive 124 mm[Hg] MALIA HUBERATZLE DO [employer] 05-19-2023 16:36-0400 Heart rate 80 /min MALIA RUSHJENN DO [facility] 05-19-2023 16:26-0400 Blood Pressure Cuff Size MALIA NGOATZLE DO [facility] 05-19-2023 16:26-0400 Blood Pressure Location MALIA BECERRIL DO [facility] [employer] 05-19-2023 16:26-0400 Blood Pressure Method MALIA NGOATZJENN DO [facility] 05-19-2023 16:26-0400 Reason For Taking VItal Signs MALIA RUSHJENN DO [facility] 05-19-2023 07:57-0400 Heart rate 74 /min MALIA RUSHJENN DO [facility] 05-19-2023 07:42-0400 Body temperature 97.88 [degF] MALIA NGOATZLE DO [facility] 05-18-2023 16:43-0400 Body temperature 98.06 [degF] MALIA NGOATZLE DO [facility] 05-18-2023 07:54-0400 Body temperature 97.7 [degF] MALIA HUBERBRENDA DO [facility] 05-17-2023 05:00-0400 Body weight 118 kg MALIA BECERRIL DO [facility] 05-16-2023 05:00-0400 Body weight 118.4 kg MALIA BECERRIL DO [facility] 04-29-2023 19:46-0400 Body height 155 cm MALIA BECERRIL DO [facility] 04-29-2023 19:46-0400 Body weight 49.7 kg/m2 MALIA BECERRIL DO [facility] 04-27-2023 16:34-0400 Heart rate 100 /min ALYSON PLUNK DO [facility] 04-27-2023 15:30-0400 Body temperature 99.32 [degF] ALYSON PLUNK DO [facility] 04-27-2023 15:30-0400 Diastolic Blood Pressure Non-Invasive 62 mm[Hg] ALYSON PLUNK DO [facility] 04-27-2023 15:30-0400 Heart rate 96 /min ALYSON PLUNK DO [address] [place] [address] 04-27-2023 15:30-0400 Mean blood pressure 79 mm[Hg] ALYSON PLUNK DO [address] [place] [address] 04-27-2023 15:30-0400 Respiratory rate 16 /min ALYSON PLUNK DO [facility] 04-27-2023 15:30-0400 Systolic Blood Pressure Non-Invasive 131 mm[Hg] ALYSON PLUNK DO [facility] 04-27-2023 11:12-0400 Heart rate 98 /min ALYSON PLUNK DO [address] [place] [address] 04-27-2023 11:12-0400 Respiratory rate 16 /min ALYSON PLUNK DO [facility] 04-27-2023 11:02-0400 Body temperature 98.06 [degF] ALYSON PLUNK DO [facility] 04-27-2023 11:02-0400 Diastolic Blood Pressure Non-Invasive 86 mm[Hg] ALYSON PLUNK DO [facility] 04-27-2023 11:02-0400 Heart rate 100 /min ALYSON PLUNK DO [facility] 04-27-2023 11:02-0400 Respiratory rate 16 /min ALYSON PLUNK DO [facility] 04-27-2023 11:02-0400 Systolic Blood Pressure Non-Invasive 138 mm[Hg] ALYSON PLUNK DO [facility] 04-27-2023 09:01-0400 Heart rate 104 /min ALYSON PLUNK DO [facility] 04-27-2023 07:34-0400 Body temperature 97.7 [degF] ALYSON PLUNK DO [facility] 04-27-2023 07:34-0400 Diastolic Blood Pressure Non-Invasive 63 mm[Hg] ALYSON PLUNK DO [address] [place] [address] 04-27-2023 07:34-0400 Systolic Blood Pressure Non-Invasive 131 mm[Hg] ALYSON PLUNK DO [facility] 04-27-2023 02:44-0400 Blood Pressure Location ALYSON [employer] DO [address] [place] [address] 04-27-2023 02:44-0400 Blood Pressure Method ALYSON PLUNK [employer] [facility] 04-27-2023 02:44-0400 Body temperature 98.06 [...] 04-26-2023 07:20-0400 Blood Pressure Location ALYSON PLUNK [employer] [facility] 04-26-2023 07:20-0400 Blood Pressure Method ALYSON PLUNK DO [facility] 04-26-2023 02:06-0400 Blood Pressure Location ALYSON PLUNK DO [facility] 04-26-2023 02:06-0400 Blood Pressure Method ALYSON PLUNK DO [facility] 04-25-2023 18:10-0400 Mean blood pressure 87 mm[Hg] ALYSON PLUNK DO [facility] 04-24-2023 22:44-0400 Heart rate 90 /min ALYSON PLUNK DO [address] [place] [address] 04-24-2023 18:05-0400 Blood Pressure Cuff Size ALYSON PLUNK DO [facility] 04-24-2023 18:05-0400 Heart rate 87 /min ALYSON PLUNK DO [address] [place] [address] 04-24-2023 14:27-0400 Blood Pressure Cuff Size ALYSON [...] Body weight 123.3 kg ALYSON PLUNK DO [address] [place] [address] 04-23-2023 12:45-0400 Body weight 51.32 kg/m2 ALYSON PLUNK DO [address] [place] [address] 04-23-2023 05:56-0400 Body weight 123.3 kg ALYSON PLUNK DO [facility] 04-23-2023 00:00-0500 Body temperature 96.8 [degF] MALIA HUBERATZLE DO [facility] 04-23-2023 00:00-0500 Diastolic Blood Pressure Non-Invasive 66 mm[Hg] MALIA HUBERATZLE DO [facility] 04-23-2023 00:00-0500 Heart rate 108 /min MALIA SCHEATZLE DO [facility] 04-23-2023 00:00-0500 Respiratory rate 20 /min MALIA NGOATZLE DO [facility] 04-22-2023 22:12-0500 Heart rate 91 /min MALIA NGOATZLE DO [facility] 04-22-2023 22:12-0500 Respiratory rate 18 /min MALIA NGOATZLE DO [facility] 04-22-2023 17:06-0500 Blood Pressure Cuff Size MALIA HUBERATZLE DO [facility] 04-22-2023 17:06-0500 Blood Pressure Location MALIA HUBERATZLE DO [facility] 04-22-2023 17:06-0500 Blood Pressure Method MALIA HUBERATZLE DO [facility] 04-22-2023 17:06-0500 Body temperature 97.7 [degF] MALIA SCHEATZLE DO [facility] 04-22-2023 17:06-0500 Diastolic Blood Pressure Non-Invasive 52 mm[Hg] MALIA SCHEATZLE DO [facility] 04-22-2023 17:06-0500 Heart rate 103 /min MALIA NGOATZLE DO [facility] 04-22-2023 17:06-0500 Reason For Taking VItal Signs MALIA NGOATZLE DO [facility] 04-22-2023 17:06-0500 Respiratory rate 18 /min MALIA NGOATZLE DO [facility] 04-22-2023 17:06-0500 Systolic Blood Pressure Non-Invasive 120 mm[Hg] MALIA NGOATZLE DO [facility] 04-22-2023 14:50-0500 Heart rate 91 /min MALIA NGOATZLE DO [facility] 04-22-2023 08:30-0500 Heart rate 80 /min MALIA NGOATZLE DO [facility] 04-22-2023 07:59-0500 Blood Pressure Cuff Size MALIA NGOATZLE DO [facility] 04-22-2023 07:59-0500 Blood Pressure Location MALIA NGOATZLE DO [facility] 04-22-2023 07:59-0500 Blood Pressure Method MALIA NGOATZLE DO [facility] 04-22-2023 07:59-0500 Body temperature 99.5 [degF] MALIA NGOATZLE DO [facility] 04-22-2023 07:59-0500 Diastolic Blood Pressure Non-Invasive 50 mm[Hg] MALIA NGOATZLE DO [facility] 04-22-2023 07:59-0500 Heart rate 80 /min MALIA HUBERATZLE DO [facility] 04-22-2023 07:59-0500 Reason For Taking VItal Signs MALIA NGOATZLE DO [facility] 04-22-2023 07:59-0500 Systolic Blood Pressure Non-Invasive 102 mm[Hg] MALIA BECERRIL DO [facility] 04-22-2023 00:55-0500 Blood Pressure Cuff Size MALIA BECERRIL DO [facility] 04-22-2023 00:55-0500 Blood Pressure Location MALIA BECERRIL DO [facility] 04-22-2023 00:55-0500 Blood Pressure Method MALIA BECERRIL DO [facility] 04-22-2023 00:55-0500 Body temperature 97.16 [degF] MALIA RUSHLE DO [facility] 04-22-2023 00:55-0500 Reason For Taking VItal Signs MALIA BECERRIL DO [facility] 04-21-2023 22:56-0500 Body temperature 98.24 [degF] MALIA RUSHLE DO [facility] 04-21-2023 17:18-0500 Body temperature 100.76 [degF] MALIA NGOATZLE DO [facility] 04-18-2023 07:51-0500 Body weight 126.6 kg MALIA BECERRIL DO [facility] 04-18-2023 01:07-0500 Heart rate 76 /min MALIA BECERRIL DO [facility] 04-17-2023 14:40-0500 Body weight 126.6 kg MALIA RUSHLE DO [facility] 04-16-2023 22:03-0500 Body weight 125.6 kg MALIA HUBERBRENDA DO [employer] 04-13-2023 13:00-0500 Body height 155 cm MALIA BECERRIL DO [facility] 04-13-2023 13:00-0500 Body weight 52.7 kg/m2 MALIA BECERRIL DO [facility] 03-16-2023 11:27-0500 Body height 154.9 cm Kiel Barnes MD Work Phone: [facility] 03-16-2023 11:27-0500 Body weight 128.37 kg Kiel Barnes MD Work Phone: [facility] 03-16-2023 11:27-0500 Diastolic blood pressure 76 mm[Hg] Kiel Barnes MD Work Phone: [facility] 03-16-2023 11:27-0500 Heart rate 79 /min Kiel Barnes MD Work Phone: [facility] 03-16-2023 11:27-0500 SaO2% (BldA) [Mass fraction] 94 % Kiel Barnes MD Work Phone: [facility] 03-16-2023 11:27-0500 Systolic blood pressure 110 mm[Hg] Kiel Barnes MD Work Phone: [facility] 12-19-2022 13:53-0500 Body height 154.9 cm Benjamin Pike MD Work Phone: [facility] 12-19-2022 13:53-0500 Body weight 128.46 kg Benjamin Pike MD Work Phone: [facility] 12-19-2022 13:53-0500 Diastolic blood pressure 80 mm[Hg] Benjamin Pike MD Work Phone: [facility] 12-19-2022 13:53-0500 Heart rate 78 /min Benjamin Pike MD Work Phone: [facility] 12-19-2022 13:53-0500 Respiratory rate 16 /min Benjamin Pike MD Work Phone: [facility] 12-19-2022 13:53-0500 SaO2% (BldA) [Mass fraction] 97 % Benjamin Pike MD Work Phone: [facility] 12-19-2022 13:53-0500 Systolic blood pressure 144 mm[Hg] Benjamin Pike MD Work Phone: [facility] 11-30-2022 15:15-0400 Body temperature 99 [degF] Pascual Bacon MD Work Phone: [facility] 11-30-2022 15:15-0400 Diastolic blood pressure 80 mm[Hg] Pascual Bacon MD Work Phone: [facility] 11-30-2022 15:15-0400 Systolic blood pressure 128 mm[Hg] Pascual Bacon MD Work Phone: [facility] 11-30-2022 14:28-0400 Body weight 126.1 kg Pascual Bacon MD Work Phone: [facility] 11-30-2022 14:28-0400 Heart rate 82 /min Pascual Bacon MD Work Phone: [facility] 11-30-2022 14:28-0400 Respiratory rate 16 /min Pascual Bacon MD Work Phone: [facility] 11-17-2022 14:31-0400 Body height 156.3 cm Pulm Wstr Work Phone: [facility] 11-17-2022 14:31-0400 Body weight 126.1 kg Pulm Wstr Work Phone: [facility] 10-27-2022 15:02-0400 Body height 154.9 cm Tony Sylvie PA-C Work Phone: [facility] 10-27-2022 15:02-0400 Body temperature 97.5 [degF] Tony Clearview PA-C Work Phone: [facility] 10-27-2022 15:02-0400 Body weight 125.83 kg Tony Sylvie PA-C Work Phone: [facility] 10-27-2022 15:02-0400 Diastolic blood pressure 80 mm[Hg] Tony Clearview PA-C Work Phone: [facility] 10-27-2022 15:02-0400 Heart rate 97 /min Tony Sylvie PA-C Work Phone: [facility] 10-27-2022 15:02-0400 SaO2% (BldA) [Mass fraction] 96 % Tony Sylvie PA-C Work Phone: [facility] 10-27-2022 15:02-0400 Systolic blood pressure 132 mm[Hg] Tony Sylvie PA-C Work Phone: [facility] 10-25-2022 14:11-0400 Body height 154.9 cm Alyson Arthur MD Work Phone: [facility] 10-25-2022 14:11-0400 Body weight 125.56 kg Alyson Arthur MD Work Phone: [facility] 10-25-2022 14:11-0400 Diastolic blood pressure 60 mm[Hg] Alyson Arthur MD Work Phone: [facility] 10-25-2022 14:11-0400 Heart rate 95 /min Alyson Arthur MD Work Phone: [facility] 10-25-2022 14:11-0400 SaO2% (BldA) [Mass fraction] 95 % Alyson Arthur MD Work Phone: [facility] 10-25-2022 14:11-0400 Systolic blood pressure 116 mm[Hg] Alyson Arthur MD Work Phone: [facility] 10-11-2022 13:08-0400 Body temperature 98 [degF] Dr. Alyson Arthur Work Phone: [facility] 10-11-2022 13:08-0400 Diastolic blood pressure 77 mm[Hg] Dr. Alyson Arthur Work Phone: [facility] 10-11-2022 13:08-0400 Heart rate 98 /min Dr. Alyson Arthur Work Phone: [facility] 10-11-2022 13:08-0400 Respiratory rate 19 /min Dr. Alyson Arthur Work Phone: [facility] 10-11-2022 13:08-0400 SaO2% (BldA) [Mass fraction] 94 % Dr. Alyson Arthur Work Phone: [facility] 10-11-2022 13:08-0400 Systolic blood pressure 143 mm[Hg] Dr. Alyson Arthur Work Phone: [facility] 10-11-2022 10:05-0400 Inhaled oxygen flow rate 0 L/min Dr. Alyson Arthur Work Phone: [facility] 10-09-2022 22:10-0400 Body height 157.[address] Alyson Arthur Work Phone: [facility] 10-09-2022 22:10-0400 Body mass index (BMI) [Ratio] 53.4 kg/m2 Dr. Alyson Arthur Work Phone: [facility] 10-09-2022 22:10-0400 Body weight 132.[address] Alyson Arthur Work Phone: [facility] 10-09-2022 21:00-0400 Body temperature 98 [degF] [facility] 10-09-2022 21:00-0400 Diastolic blood pressure 52 mm[Hg] [facility] 10-09-2022 21:00-0400 Heart rate 89 /min [facility] 10-09-2022 21:00-0400 Respiratory rate 25 /min [facility] 10-09-2022 21:00-0400 SaO2% (BldA) [Mass fraction] 92 % [facility] 10-09-2022 21:00-0400 Systolic blood pressure 137 mm[Hg] [facility] 10-09-2022 14:44-0400 Body mass index (BMI) [Ratio] 54.1 kg/m2 [facility] 10-09-2022 14:44-0400 Body weight 134.1 kg [facility] 10-09-2022 14:19-0400 Body height 157.48 cm [facility] 09-28-2022 15:08-0400 Body weight 131.09 kg Alyson Arthur MD Work Phone: [facility] 09-28-2022 15:08-0400 Diastolic blood pressure 82 mm[Hg] Alyson Arthur MD Work Phone: [facility] 09-28-2022 15:08-0400 Heart rate 98 /min Alyson Arthur MD Work Phone: [facility] 09-28-2022 15:08-0400 SaO2% (BldA) [Mass fraction] 92 % Alyson Arthur MD Work Phone: [facility] 09-28-2022 15:08-0400 Systolic blood pressure 142 mm[Hg] Alyson Arthur MD Work Phone: [facility] 09-23-2022 02:40-0400 Diastolic blood pressure 79 mm[Hg] [facility] 09-23-2022 02:40-0400 Heart rate 74 /min [facility] 09-23-2022 02:40-0400 Respiratory rate 15 /min [facility] 09-23-2022 02:40-0400 SaO2% (BldA) [Mass fraction] 97 % [facility] 09-23-2022 02:40-0400 Systolic blood pressure 168 mm[Hg] [facility] 09-23-2022 02:01-0400 Body height 157.48 cm [facility] 09-23-2022 02:01-0400 Body temperature 98.4 [degF] [facility] 06-28-2022 15:19-0400 Body weight 132.9 kg Angela Schmid [employer] ACCOUNT EXECUTIVE.[employer] Work Phone: [facility] 06-28-2022 15:19-0400 Diastolic blood pressure 72 mm[Hg] Angela Schmid [employer] ACCOUNT EXECUTIVE.[employer] Work Phone: [facility] 06-28-2022 15:19-0400 Heart rate 88 /min Angela Schmid [employer] ACCOUNT EXECUTIVE.[employer] Work Phone: [facility] 06-28-2022 15:19-0400 Respiratory rate 20 /min Angela Schmid [employer] ACCOUNT EXECUTIVE.[employer] Work Phone: [facility] 06-28-2022 15:190400 SaO2% (BldA) [Mass fraction] 97 % Angela Schmid [employer] ACCOUNT EXECUTIVE.[employer] Work Phone: [facility] 06-28-2022 15:19-0400 Systolic blood pressure 136 mm[Hg] Angela Schmid [employer] ACCOUNT EXECUTIVE.[employer] Work Phone: [facility] 05-23-2022 10:26-0400 Body weight 131.54 kg Kathy Gemma [employer] ACCOUNT EXECUTIVE.[employer] Work Phone: [facility] 05-23-2022 10:26-0400 Diastolic blood pressure 80 mm[Hg] Kathy Gemma [employer] ACCOUNT EXECUTIVE.[employer] Work Phone: [facility] 05-23-2022 10:26-0400 Heart rate 88 /min Kathyjose Colbert [employer] ACCOUNT EXECUTIVE.[employer] Work Phone: [facility] 05-23-2022 10:26-0400 Systolic blood pressure 145 mm[Hg] Kathy Gemma [employer] ACCOUNT EXECUTIVE.[employer] Work Phone: [facility] 05-20-2022 14:21-0400 Body weight 132 kg Alyson Arthur MD Work Phone: [facility] 05-20-2022 14:21-0400 Diastolic blood pressure 82 mm[Hg] Alyson Arthur MD Work Phone: [facility] 05-20-2022 14:21-0400 Heart rate 90 /min Alyson Arthur MD Work Phone: [facility] 05-20-2022 14:21-0400 SaO2% (BldA) [Mass fraction] 95 % Alyson Arthur MD Work Phone: [facility] 05-20-2022 14:21-0400 Systolic blood pressure 170 mm[Hg] Alyson Arthur MD Work Phone: [facility] 10-22-2021 14:19-0400 Body weight 128.82 kg ARCADIO Livingston PA-C Work Phone: [facility] 10-22-2021 14:19-0400 Diastolic blood pressure 70 mm[Hg] NA Livingston PA-C Work Phone: [facility] 10-22-2021 14:19-0400 Heart rate 107 /min NA Livingston PA-C Work Phone: [facility] 10-22-2021 14:19-0400 Respiratory rate 18 /min NA Livingston PA-C Work Phone: [facility] 10-22-2021 14:19-0400 SaO2% (BldA) [Mass fraction] 94 % NA Livingston PA-C Work Phone: [facility] 10-22-2021 14:19-0400 Systolic blood pressure 136 mm[Hg] NA Livingston PA-C Work Phone: [facility] 10-18-2021 15:47-0400 Respiratory rate 16 /min [facility] Work Phone: 10-18-2021 15:47-0400 SaO2% (BldA) [Mass fraction] 95 % [facility] Work Phone: 10-18-2021 14:20-0400 Diastolic blood pressure 92 mm[Hg] [facility] Work Phone: 10-18-2021 14:20-0400 Heart rate 106 /min [facility] Work Phone: 10-18-2021 14:20-0400 Systolic blood pressure 204 mm[Hg] [facility] Work Phone: 10-18-2021 12:54-0400 Body height 157.48 cm [facility] Work Phone: 10-18-2021 12:54-0400 Body mass index (BMI) [Ratio] 52.4 kg/m2 [facility] Work Phone: 10-18-2021 12:54-0400 Body temperature 97.8 [degF] [facility] Work Phone: 10-18-2021 12:54-0400 Body weight 130.18 kg [facility] Work Phone: Encounters Encounter Date Encounter Type Care Provider Facility Start: 12-15-2024 ambulatory Raj Roblero lity:[facility] Start: 11-05-2024 End: 11-05-2024 ambulatory ALYSON ARTHUR Facility:[facility] Start: 10-30-2024 End: 10-30-2024 ambulatory ALYSON ARTHUR Facility:[facility] Start: 10-03-2024 End: 10-03-2024 ambulatory Alyson Arthur MD Work Phone: [facility] [place] Start: 10-03-2024 End: 10-03-2024 Patient encounter procedure Alyson Arthur MD Work Phone: [facility] Comment on above: [facility] Start: 09-27-2024 End: 10-02-2024 Telephone encounter Franklin Espinal DO Work Phone: Vascular Surgery Comment on above: Appointment (Needs t esting ) Start: 09-13-2024 End: 09-13-2024 Refill Alyson Arthur MD Work Phone: [facility] [place] Comment on above: Refill Request Start: 09-10-2024 End: 09-11-2024 Telephone encounter Kathy Colbert [employer] ACCOUNT EXECUTIVE.[employer] Work Phone: [facility] Cardiology [place] Comment on above: Appointment Start: 09-09-2024 End: 09-09-2024 Patient encounter procedure Amauri Jo APRN.[employer] Work Phone: Pulmonary Medicine Comment on above: Multiple lung nodule s (Primary Dx); Encounter for screening for lung cancer; Tobacco use current Start: 09-09-2024 End: 09-09-2024 ambulatory TONY MAJANO Facility:[facility] Start: 09-09-2024 End: 09-09-2024 Subsequent hospital visit by physician [facility] (I-Stat) Work Phone: Cat Scan Comment on above: Cigarette smoker [F1 7.210] Start: 09-03-2024 End: 09-03-2024 ambulatory Alyson Arthur MD Work Phone: [facility] Start: 09-03-2024 End: 09-03-2024 Patient encounter procedure Alyson Arthur MD Work Phone: [facility] Comment on above: [facility] Start: 08-22-2024 End: 08-23-2024 Refill Alyson Arthur MD Work Phone: [facility] Comment on above: Refill Request Start: 08-21-2024 End: 08-21-[address] Alyson Arthur MD Work Phone: -Laboratory Start: 08-21-2024 End: 08-21-[address] Walter Sellers MD -Laboratory Work Phone: Start: 08-21-2024 End: 08-21-2024 ambulatory Alyson Arthur Facility:[facility] Start: 08-19-2024 End: 08-19-2024 Refill Alyson Arthur MD Work Phone: [facility] Comment on above: Refill Request Start: 08-13-2024 End: 08-13-2024 Telephone encounter Alyson Arthur MD Work Phone: [facility] [place] Comment on above: Insurance Authorizat ion Start: 08-12-2024 End: 08-13-2024 Follow-up encounter Angela Schmid APRN.[employer] Work Phone: [facility] Start: 08-07-2024 End: 08-07-2024 ambulatory ALYSON JERSON Facility:[facility] Start: 08-07-2024 End: 08-07-2024 ambulatory ANGELA SCHMID Facility:[facility] Start: 08-07-2024 End: 08-07-2024 Office outpatient visit 25 minutes Angela Schmid APRN.[employer] Work Phone: [facility] Comment on above: Uncontrolled type 2 diabetes [...] 08-02-2024 ambulatory Alyson Arthur MD Work Phone: [facility] Start: 08-02-2024 End: 08-02-2024 Patient encounter procedure Alyson Arthur MD Work Phone: [facility] Comment on above: Population Health Na vigation Outreach ([facility] ) Start: 07-24-2024 End: 07-24-[address] Alyson Arthur MD Work Phone: [facility] Work Phone: Start: 07-24-2024 End: 07-24-[address] Walter Sellers MD -Laboratory Work Phone: Start: 07-24-2024 End: 07-24-2024 ambulatory [facility] Facility:[facility] Start: 06-21-2024 End: 06-21-2024 Refill Alyson Arthur MD Work Phone: [facility] Comment on above: Refill Request Start: 06-20-2024 End: 06-20-[address] Alyson Arthur MD Work Phone: [facility] Work Phone: Start: 06-20-2024 End: 06-20-[address] Walter Sellers MD -Radiology, [facility] Work Phone: Start: 06-20-2024 End: 06-20-2024 ambulatory [facility] Facility:[facility] Start: 06-03-2024 End: 06-03-2024 ambulatory Alyson Arthur MD Work Phone: [facility] Start: 06-03-2024 End: 06-03-2024 Patient encounter procedure Alyson Arthur MD Work Phone: [facility] Comment on above: Population Health Na vigation Outreach ([employer] [place] ) Start: 05-21-2024 End: 05-21-2024 ambulatory Marline Serrano [facility] Work Phone: Pharmacy Medicine Start: 05-21-2024 End: 05-21-2024 Coordination of care plan Marline Serrano [facility] Work Phone: Pharmacy Medicine Comment on above: Care Coordination (R eferred to Pharmacy for Diabetes Management) Start: 05-14-2024 End: 05-14-2024 Refill Alyson Arthur MD Work Phone: [facility] [place] Comment on above: Refill Request Start: 05-03-2024 End: 05-03-2024 ambulatory [facility] MD [facility] Start: 05-03-2024 End: 05-03-2024 Patient encounter procedure Alyson Arthur MD Work Phone: [facility] Comment on above: Population Health Na vigation Outreach ([employer] [place] ) Start: 05-01-2024 End: 05-01-2024 Refill Alyson Arthur MD Work Phone: [facility] [place] Comment on above: Refill Request Start: 04-04-2024 End: 04-04-2024 Orders Only Tony Majano APRN.[facility] Work Phone: Pulmonology Comment on above: Cigarette smoker (Pr imary Dx) Start: 04-03-2024 End: 04-03-2024 ambulatory [facility] [place] Start: 04-03-2024 End: 04-03-2024 Patient encounter procedure Dennys Vásquez MA [facility] Comment on above: Population Health Na vigation Outreach ([employer] [place]) Start: 03-28-2024 End: 03-28-2024 Refill Alyson Arthur MD Work Phone: [facility] [place] Comment on above: Refill Request Start: 03-04-2024 End: 03-04-2024 ambulatory Estelle Uriarte MA [facility] [place] Start: 03-04-2024 End: 03-04-2024 Patient encounter procedure Estelle Uriarte MA [facility] Comment on above: Population Health Na vigation Outreach (Eladio gutierresleeannemartha nuñez) Start: 03-04-2024 End: 03-04-2024 Telephone encounter Alyson Arthur MD Work Phone: [facility] Comment on above: Medication Request Start: 02-15-2024 End: 02-16-2024 Telephone encounter [facility] Start: 02-08-2024 End: 02-08-2024 ambulatory ALYSON Daniella JERSON Facility:[facility] Start: 02-08-2024 End: 02-08-2024 ambulatory [facility] Facility:[facility] Start: 02-08-2024 End: 02-08-2024 Office outpatient visit 40 minutes Margi Riddle APRN.[employer] Work Phone: [facility] Comment on above: Urine frequency (Cintia ned Dx); Encounter for immunization; Screening for depression; Encounter for screening examination for other mental health and behavioral disorders; Chronic obstructive pulmonary disease, unspecified COPD type (HCC); Screening for colon cancer; Type 2 diabetes mellitus with hyperglycemia, with long-term current use of insulin ([facility]); Encounter for screening for lung cancer; Screening [...] 01-29-2024 End: 01-29-2024 Telephone encounter Margi Riddle APRN.[employer] Work Phone: [facility] Comment on above: problem getting to a ppt tomorrow Start: 01-09-2024 End: 01-09-2024 Refill Alyson Arthur MD Work Phone: [facility] [place] Comment on above: Refill Request; Medi cation Problem Start: 12-28-2023 End: 01-01-2024 Telephone encounter Alyson Arthur MD Work Phone: [facility] [place] Comment on above: Orders (Hospital bed ) Forms Start: 12-19-2023 End: 12-22-2023 Telephone encounter Alyson Arthur MD Work Phone: [facility] [place] Comment on above: Medication Problem Start: 12-12-2023 End: 12-18-2023 Telephone encounter Alyson Arthur MD Work Phone: [facility] [place] Comment on above: Medication Problem Start: 12-07-2023 End: 12-07-2023 Refill Alyson Arthur MD Work Phone: [facility] [place] Comment on above: Refill Request Start: 12-06-2023 End: 12-06-2023 Telephone encounter Alyson Arthur MD Work Phone: [facility] [place] Comment on above: Medication Request Start: 11-20-2023 End: 11-21-2023 Telephone encounter Alyson Arthur MD Work Phone: [facility] [place] Comment on above: Calling in Blood Sug ars Start: 11-10-2023 End: 11-10-2023 Refill Alyson Arthur MD Work Phone: [facility] [place] Comment on above: Refill Request Start: 11-07-2023 End: 11-07-2023 Telephone encounter Alyson Arthur MD Work Phone: [facility] [place] Comment on above: Blood Sugar Readings Start: 10-30-2023 End: 11-02-2023 Telephone encounter Alyson Arthur MD Work Phone: [facility] [place] Comment on above: Patient Update Start: 10-27-2023 End: 10-27-2023 ambulatory Mallika Burkett RN Work Phone: [employer] Lead Management Comment on above: MIGUEL FARLEY RN ( ED utilization review per request of payer) Start: 10-25-2023 End: 10-25-2023 Refill Alyson Arthur MD Work Phone: [facility] [place] Comment on above: Refill Request Start: 10-19-2023 End: 10-20-2023 Refill Alyson Arthur MD Work Phone: [facility] [place] Comment on above: Refill Request Start: 10-18-2023 End: 10-18-2023 Telephone encounter Alyson Arthur MD Work Phone: [facility] [place] Comment on above: Patient Update Start: 10-09-2023 End: 10-09-2023 Refill Alyson Arthur MD Work Phone: [facility] [place] Comment on above: Refill Request Start: 10-05-2023 End: 10-05-2023 ambulatory Nurse Intm/Famp Triage [facility] Work Phone: Nurse Phone Triage Comment on above: Nurse Triage Call Start: 10-04-2023 End: 10-05-2023 Telephone encounter Pascual Bacon MD Work Phone: [facility] Medicine [place] Comment on above: elevated blood sugar Start: 09-22-2023 Telephone encounter Alyson Arthur MD Work Phone: [facility] [place] Comment on above: Request for order fo r adult pull ups Start: 09-19-2023 Telephone encounter Alyson Arthur MD Work Phone: [facility] [place] Comment on above: Orders Start: 08-07-2023 Refill Alyson Arthur MD Work Phone: [facility] [place] Comment on above: Refill Request Start: 07-25-2023 Refill Alyson Arthur MD Work Phone: [facility] [place] Comment on above: Refill Request Start: 07-21-2023 Telephone encounter Alyson Arthur MD Work Phone: [facility] [place] Comment on above: Patient Update Start: 07-17-2023 Telephone encounter Alyson Arthur MD Work Phone: [facility] [place] Comment on above: [facility] PT- disc harged pt today Start: 07-13-2023 Telephone encounter Alyson Arthur MD Work Phone: [facility] [place] Comment on above: Home Health Point of Care Results Start: 07-05-2023 End: 07-05-2023 Office outpatient visit 15 minutes Angela Schmid [employer] Work Phone: [facility] [place] Comment on above: SBO (small bowel obs truction) (HCC) (Primary Dx) Start: 07-03-2023 End: 07-03-2023 Patient encounter procedure Laurel Pierce DO Work Phone: Stroke Neurology Comment on above: Arterial ischemic st roke (HCC) (Primary Dx); Right hemiparesis (HCC) Start: 06-29-2023 Telephone encounter Alyson Arthur MD Work Phone: [facility] [place] Comment on above: FYI-PT plan of care Start: 06-28-2023 Telephone encounter Alyson Arthur MD Work Phone: [facility] Comment on above: OT requesting verbal order [...] / Non-visit Dr. Michell Arthur Work Phone: [facility] Start: 06-24-2023 Non-patient / Non-visit Dr. Michell Arthur Work Phone: [facility] Work Phone: Start: 06-23-2023 Non-patient / Non-visit Dr. Michell Arthur Work Phone: [facility] Work Phone: Start: 06-22-2023 End: 06-24-2023 Evaluation and management of inpatient Dr. [facility]son [facility]: Start: 06-22-2023 Non-patient / Non-visit Dr. Michell Arthur Work Phone: [facility] Start: 06-22-2023 Telephone encounter Alyson Arthur MD Work Phone: [facility] [place] Comment on above: Patient Update Start: 06-09-2023 Telephone encounter Alyson Arthur MD Work Phone: [facility] [place] Comment on above: Patient Update; Medi cation [...] Alyson Arthur MD Work Phone: [facility] [place] Comment on above: Insurance Authorizat ion (Eliquis ) Start: 06-01-2023 Telephone encounter Alyson Arthur MD Work Phone: [facility] [place] Comment on above: Occupational therapy orders Start: 05-31-2023 Telephone encounter Alyson Arthur MD Work Phone: [facility] [place] Comment on above: FYI-PT Home Health U pdate Start: 05-30-2023 Telephone encounter Alyson Arthur MD Work Phone: [facility] [place] Comment on above: Patient Update Start: 05-29-2023 Telephone encounter lAyson Arthur MD Work Phone: [facility] [place] Comment on above: OT Start of Care Upd ate Start: 05-29-2023 End: 05-29-2023 Subsequent hospital visit by physician Xr [facility] [place] Work Phone: Radiology Comment on above: Wrist pain, acute, r ight [M25.531] Start: 05-29-2023 End: 05-29-2023 Office outpatient visit 15 minutes Jim Jeffers APRN.CNP Work Phone: [place] [facility] Comment on above: Wrist pain, acute, r ight (Primary Dx) Start: 05-25-2023 Refill Alyson Arthur MD Work Phone: [facility] [place] Comment on above: Prescription Request Home Health Update Start: 05-24-2023 Telephone encounter Alyson Arthur MD Work Phone: [facility] [place] Comment on above: Results Patient Update Refill Request Abdominal Pain Start: 05-23-2023 Telephone encounter Alyson [facility] MD [facility] Comment on above: results PT plan of care Start: 05-22-2023 Telephone encounter Alyson Arthur MD Work Phone: [facility] [place] Comment on above: Medication Problem Insurance Authorizat ion Start: 05-22-2023 End: 05-22-2023 Subsequent hospital visit by physician Xr [facility] [place] Work Phone: Radiology Comment on above: Pleural effusion [J9 0] Start: 05-22-2023 End: 05-22-2023 Patient encounter procedure Alyson Arthur MD Work [facility] Comment on above: Small bowel obstruct ion [...] Phone: Family Medicine [place] Comment on above: Home Health Orders Start: 04-27-2023 End: 05-20-2023 Evaluation and management of inpatient MALIA SCHEATZLE DO [employer] Start: 04-26-2023 Telephone encounter Alyson Arthur MD Work Phone: [facility] [place] Comment on above: requesting hospital bed/medication problems Start: 04-24-2023 Telephone encounter Kiel Barnes MD Work Phone: Cardiology Comment on above: Appointment Start: 04-23-2023 End: 04-27-2023 Evaluation and management of inpatient ALYSON WARREN DO [facility] Start: 04-13-2023 Telephone encounter Alyson Arthur MD Work Phone: Family [facility] [place] Comment on above: Request for discharg e instructions from [facility] on Start: 04-07-2023 End: 04-23-2023 Evaluation and management of inpatient MALIA NGOATZLE DO [facility] [place] Start: 03-19-2023 ambulatory Lilia [employer] Comment on above: Medication Problem Start: 03-18-2023 Telephone encounter Angela ritter APRN.[employer] Work Phone: Family Medicine [place] Comment on above: Results Start: 03-17-2023 Patient encounter status Lilia acuna RN [facility] Start: 02-01-2024 ambulatory Shlomo miranda MD Work Phone: Cardiothoracic Comment on above: Patient Education Start: 03-16-2023 End: 03-16-2023 Preprocedural examination done [facility] Work Phone: [facility] Start: 03-16-2023 End: 03-16-2023 Admission to same day surgery center Anesthesia Clearance Work Phone: [facility] Work Phone: Start: 03-16-2023 End: 03-16-2023 Patient encounter procedure [facility] Work Phone: Cardiothoracic Comment on above: Pre-op exam (Primary Dx) Encounter for preope rative anesthesiology assessment for cardiac surgery (Primary Dx) Controlled type 2 di abetes mellitus without complication, unspecified whether terminologist insulin use (HCC); Pre-operative cardiovascular examination; Aortic valve disorder; 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); Chronic diastolic heart failure (HCC); Chronic bronchitis, simple (HCC); Morbid obesity with BMI of 50.0-59.9, adult (HCC) Controlled type 2 di abetes mellitus without complication, unspecified whether terminologist insulin use (HCC); Pre-operative cardiovascular examination; Aortic valve disorder; 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) Start: 03-16-2023 End: 03-27-2023 Patient encounter status Shlomo Alcocer MD Work Phone: [facility] Start: 02-28-2023 End: 02-28-[address] Alyson Arthur Work Phone: [facility] Work Phone: Start: 01-27-2023 Refill Alyson Arthur MD Work Phone: [facility] [place] Comment on above: Refill Request Start: 01-09-2023 Refill Alyson Arthur MD Work Phone: [facility] [place] Comment on above: Refill Request Start: 12-29-2022 Refill Alyson Arthur MD Work Phone: [facility] [place] Comment on above: Refill Request Start: 12-27-2022 Telephone encounter Leandro soto [employer] Work Phone: [facility] Comment on above: multidisciplinary art team meeting Start: 12-21-2022 Patient encounter status Benjamin Pike MD Work Phone: [facility] Start: 12-21-2022 Telephone encounter Benjamin larry MD Work Phone: [facility] Comment on above: Orders Start: 12-19-2022 End: 12-19-2022 Patient encounter procedure Benjamin Pike MD Work Phone: [facility] Comment on above: Severe aortic stenos is [I35.0] (Primary Dx) Start: 12-09-2022 Refill Alyson Arthur MD Work Phone: [facility] [place] Comment on above: Refill Request Start: 12-07-2022 [...] Alyson Arthur MD Work Phone: Family [facility] [place] Start: 11-30-2022 End: 11-30-2022 Patient encounter procedure Pascual Bacon MD Work Phone: [facility] [place] Comment on above: Blister (nonthermal) , right foot, initial encounter (Primary Dx); Bilateral lower extremity edema; Dependent rubor; Open wound of right lower extremity, subsequent encounter; Controlled type 2 diabetes mellitus with diabetic neuropathy, with long-term current use of insulin (HCC) Start: 11-30-2022 Telephone encounter Alyson Arthur MD Work Phone: [facility] [place] Comment on above: Future Appointment Start: 11-24-2022 Telephone encounter Alyson Arthur MD Work Phone: [place] Comment on above: Patient Update Forms Start: 11-24-2022 End: 11-24-[address] (I-Stat[facility] Start: 11-24-2022 End: 11-24-2022 Subsequent hospital visit by physician [facility] (I-Stat) [facility] Comment on above: Encounter for prepro cedural cardiovascular examination [Z01.810] Start: 11-21-2022 Refill Alyson Arthur MD Work Phone: [facility] [place] Comment on above: Refill Request Start: 11-17-2022 End: 11-17-2022 ambulatory Pulm [facility] Work Phone: PULM LAB [facility] Comment on above: Spirometry Start: 11-17-2022 End: 11-17-2022 Patient encounter procedure [facility] Work Phone: [place] [place] Start: 11-17-2022 End: 11-17-2022 Patient encounter status [facility] Work Phone: [facility] Start: 11-08-2022 Patient encounter status Benjamin Pike MD Work Phone: [facility] Start: 11-08-2022 Telephone encounter Benjamin larry MD Work Phone: [facility] Comment on above: Orders Start: 11-02-2022 Telephone encounter Alyson Arthur MD Work Phone: [facility] [place] Comment on above: Patient Request/ CPA P Order Fax Start: 11-01-2022 Telephone encounter Alyson Arthur MD Work Phone: [address] [place] [address] Comment on above: Patient Question Start: 10-27-2022 End: 10-27-2022 Patient encounter procedure Tony Mercer PA-C Work Phone: General Surgery Comment on above: Cutaneous abscess of right lower extremity; Cellulitis of skin Start: 10-26-2022 Telephone encounter Alyson Arthur MD Work Phone: Family Medicine [place] Comment on above: Results Start: 10-25-2022 End: 10-25-2022 Subsequent hospital visit by physician Xr [facility] [place] Work Phone: Radiology Comment on above: Bacterial pneumonia [J15.9] Start: 10-25-2022 End: 10-25-2022 Patient encounter procedure Alyson Arthur MD Work Phone: Family Medicine [place] Comment on above: Bacterial pneumonia (Primary Dx); Nonrheumatic aortic valve stenosis; DDD (degenerative disc disease), lumbar; Controlled type 2 diabetes mellitus with diabetic neuropathy, with long-term current use of insulin ([facility]); Bicuspid aortic valve; Sleep apnea, unspecified type; Chronic bronchitis, simple ([facility]); Essential hypertension; Morbid obesity with BMI of 50.0-59.9, adult ([facility]); Leg cramps; Vision changes; Headache, unspecified headache type; Gastroesophageal reflux disease with esophagitis without hemorrhage; Open wound of right lower extremity, subsequent encounter; Cutaneous abscess of right lower extremity; Cellulitis of skin Start: 10-25-2022 Telephone encounter Alyson Arthur MD Work Phone: [facility] Comment on above: Pharmacy Call Start: 10-14-2022 Telephone encounter Alyson Arthur MD Work Phone: [facility] Comment on above: Insurance Authorizat ion Start: 10-11-2022 Telephone encounter Alyson Arthur MD Work Phone[facility] Comment on above: Patient Update Start: 10-10-2022 Non-patient / Non-visit Dr. Michell Arthur Work Phone: [facility] Work Phone: Start: 10-10-2022 Non-patient / Non-visit Dr. Michell Arthur Work Phone: [facility] Start: 10-09-2022 End: 10-11-2022 Evaluation and management of inpatient [facility] Work Phone: Start: 10-07-2022 Telephone encounter Benjamin larry MD Work Phone: [facility] Comment on above: Appointment (Appoint ment) Start: 10-06-2022 Telephone encounter Alyson Arthur MD Work Phone: [facility] Comment on above: Insurance Authorizat ion (anahi) Start: 10-05-2022 Refill Alyson Arthur MD Work Phone: [facility] Comment on above: Refill Request Start: 10-04-2022 Telephone encounter Kathy Colbert APRN.[facility] [employer] Work Phone: Cardiology Comment on above: Results Start: 10-03-2022 Orders Only Kathy villalobos COMMERCIAL LINES ACCOUNT EXECUTIVE.[employer] Work Phone: [place] [facility] Comment on above: Aortic valve stenosi s, etiology of cardiac valve disease unspecified (Primary Dx); Bicuspid aortic valve Start: 09-30-2022 End: 09-30-2022 Patient encounter procedure Ech[facility] Work Phone: Cardiology Comment on above: Bicuspid aortic valv e; Nonrheumatic aortic valve stenosis Start: 09-28-2022 End: 09-28-2022 Patient encounter procedure Alyson Arthur MD Work Phone: [facility] Comment on above: Lumbar radiculopathy (Primary Dx); Controlled type 2 diabetes mellitus with diabetic neuropathy, with long-term current use of insulin ([facility]); Bicuspid aortic valve; Nonrheumatic aortic valve stenosis; LVH (left ventricular hypertrophy); Primary hypertension; Hyperlipidemia, unspecified hyperlipidemia type; Chronic bronchitis, simple ([facility]); Sleep apnea, unspecified type; GERD without esophagitis; Type 2 diabetes mellitus with microalbuminuria, with long-term current use of insulin ([facility]); Morbid obesity with BMI of 50.0-59.9, adult ([facility]); Microalbuminuria Start: 09-23-2022 End: 09-23-2022 Emergency department patient visit [facility] Work Phone: Start: 08-12-2022 Refill Alyson Arthur MD Work Phone: Family Medicine [place] Comment on above: Refill Request Start: 08-11-2022 Telephone encounter Alyson Arthur MD Work Phone: Internal Medicine [place] Comment on above: Orders (order for a motorized scooter to go to [facility]) Start: 08-10-2022 Telephone encounter Alyson Arthur MD Work Phone: Family [facility] [place] Comment on above: Refill Request Start: 08-01-2022 Telephone encounter Alyson Arthur MD Work Phone: Family Medicine [place] Comment on above: Orders; CPAP Machine /Supplies Start: 07-20-2022 Refill Alyson Arthur MD Work Phone: [facility] [place] Comment on above: Refill Request Start: 07-15-2022 Orders Only Amauri benson COMMERCIAL [employer]ES ACCOUNT EXECUTIVE.[employer] Work Phone: [facility] Comment on above: Encounter for [...] 07-14-2022 Subsequent hospital visit by physician Ct [facility] (I-Stat) Work Phone: Cat Scan Comment on above: Encounter for screen ing for lung cancer [Z12.2] Start: 07-04-2022 End: 07-04-2022 Subsequent hospital visit by physician Suyapa [facility] [place] Work Phone: Radiology Comment on above: Left hip pain [M25.5 52] Start: 06-28-2022 End: 06-28-2022 Office outpatient visit 15 minutes Angela Schmid APRN.[employer] [employer] Work Phone: [facility] Comment on above: Primary hypertension (Primary Dx); Controlled type 2 diabetes mellitus with diabetic neuropathy, with long-term current use of insulin (HCC); Chronic back pain, unspecified back location, unspecified back pain laterality Start: 06-24-2022 End: 06-24-2022 Patient encounter procedure [facility] Work Phone: Start: 06-24-2022 Refill Alyson Arthur MD Work Phone: [address] [place] [address] Comment on above: Refill Request Start: 05-31-2022 End: 05-31-2022 Patient encounter procedure Greta Powers OD Work Phone: Ophthalmology Comment on above: Type 2 diabetes adriano itus without retinopathy (HCC) (Primary Dx); Combined forms of age-related cataract of both eyes; Dry eye syndrome of bilateral lacrimal glands; Glaucoma suspect of both eyes Start: 05-30-2022 Telephone encounter Alyson Arthur MD Work Phone: [facility] Comment on above: Results Start: 05-24-2022 Telephone encounter Alyson Arthur MD Work Phone: [facility] Comment on above: Results Start: 05-23-2022 End: 05-23-2022 Patient encounter procedure Kathy Colbert APRN.[employer] Work Phone: Cardiology Comment on above: Nonrheumatic [...] encounter procedure Alyson Arthur MD Work Phone: [facility] Comment on above: Controlled type 2 di [...] Telephone encounter Alyson Arthur MD Work Phone: [facility] [place] Comment on above: Forms Start: 04-19-2022 ambulatory Alyson Arthur MD Work Phone: [facility] Comment on above: Allied Health Visit (Medication Adherence Outreach ) Start: 03-22-2022 ambulatory Aria Lr MA [facility] [place] Comment on above: Population Health Na vigation Outreach (Care Gaps) Start: 03-21-2022 Refill Alyson Arthur MD Work Phone: [facility] [place] Comment on above: Refill Request Start: 03-09-2022 End: 03-09-2022 ambulatory [facility] Work Phone: Start: 03-09-2022 End: 03-09-2022 Patient encounter procedure [facility] Start: 03-02-2022 Refill Alyson Arthur MD Work Phone: [facility] [place] Comment on above: Refill Request Start: 02-15-2022 Telephone encounter Alyson Arthur MD Work Phone: [facility] [place] Comment on above: Medication Problem Start: 02-03-2022 Refill Alyson Arthur MD Work Phone: [facility] [place] Comment on above: Refill Request Start: 12-27-2021 Refill Alyson Arthur MD Work Phone: [facility] [place] Comment on above: Refill Request Start: 11-17-2021 Refill Alyson Arthur MD Work Phone: [facility] [place] Comment on above: Refill Request Start: 11-12-2021 Telephone encounter Alyson Arthur MD Work Phone: [facility] [place] Comment on above: Blood Sugar Updates Start: 11-05-2021 Telephone encounter Alyson Arthur MD Work Phone: Family Medicine [place] Comment on above: Patient Question Start: 11-03-2021 ambulatory Miriam Delgadoate [facility] [place] Comment on above: Population Health Na vigation Outreach ([employer] Attribution /) Start: 10-29-2021 Telephone encounter Scott Mason Livingston PA-C Work Phone: [facility] [place] Comment on above: Results Start: 10-22-2021 End: 10-22-2021 Patient encounter procedure Scott Mason Livingston PA-C Work Phone: Family [facility] [place] Comment on above: Nonrheumatic aortic valve stenosis (Primary Dx); Bicuspid aortic valve; LVH (left ventricular hypertrophy); Primary hypertension; Hyperlipidemia, unspecified hyperlipidemia type; Type 2 diabetes mellitus with microalbuminuria, with long-term current use of insulin (HCC); Microalbuminuria; Chronic bronchitis, simple ([facility]); Sleep apnea, unspecified type; Restrictive lung disease; Bipolar 1 disorder ([facility]); Morbid obesity with BMI of 50.0-59.9, adult ([facility]); GERD without esophagitis; Age-related cataract of both eyes, unspecified age-related cataract type; Vitamin D deficiency; Fatigue, unspecified type; Current use of proton pump inhibitor; Nocturnal oxygen desaturation Start: 10-18-2021 End: 10-18-2021 Emergency department patient visit [facility] Start: 10-15-2021 Refill Alyson Arthur MD Work Phone: Family Medicine [place] Comment on above: Refill Request Start: 09-23-2021 ambulatory Apple Baldwin [facility] [place] Comment on above: Population Health Na vigation Outreach ([employer] Care Gap) Start: 09-16-2021 Refill Alyson Arthur MD Work Phone: Family Medicine [place] Comment on above: Refill Request Start: 08-24-2021 Refill Alyson Arthur MD Work Phone: Family Medicine [place] Comment on above: Refill Request Start: 07-20-2021 Refill Alyson Arthur MD Work Phone: [facility] Comment on above: Refill Request Start: 07-15-2021 ambulatory Nga Kenn [facility] [place] Comment on above: Population Health Na vigation Outreach ([employer] care gap ) Start: 06-24-2021 Refill Alyson Arthur MD Work Phone: [facility] Comment on above: Refill Request Start: 06-23-2021 End: 06-23-2021 Patient encounter procedure [facility] Start: 06-14-2021 ambulatory Karen Romero RN Work Phone: Application Development Team Lead Management Comment on above: Community Monitoring Outreach ([employer] program enrollment intro) Start: 05-28-2021 Refill Alyson Arthur MD Work Phone: [facility] Comment on above: Refill Request Start: 12-28-2020 End: 12-28-2020 Subsequent hospital visit by physician Xr [facility] [place] Work Phone: Radiology Comment on above: Cough [R05.9] Start: 11-16-2020 Refill Alyson Arthur MD Work Phone: [facility] Comment on above: Refill Request; Refi ll Request Start: 04-15-2020 End: 04-15-2020 Subsequent hospital visit by physician Xr [facility] [place] Work Phone: Radiology Comment on above: Left wrist pain [M25 .532] Procedures Date Procedure Procedure Detail Performing Clinician Start: 08-21-2024 Methadone measurement, urine Dr. Alyson Arthur MD Work Phone: Start: 08-21-[address] Nancy Arthur MD Work Phone: Comment on above: TEST RESULTS [id number] Drug-Unb Amphetamines, Urine Negative ng/mL Zanipr=9453 Amphetamine test includes Amphetamine and Methamphetamine. Barbiturate Negative ng/mL Yecpjm=461 Benzodiazepines Negative ng/mL Xmudzb=258 Cannabinoid Negative ng/mL Yyzawa=977 Cocaine (Metab.) Negative ng/mL Fvowxk=453 Opiates Negative ng/mL Pvhveb=555 Opiate test includes Codeine and Morphine only. Phencyclidine Negative ng/mL Cutoff=25 Methadone Screen, Urine Negative ng/mL Mxyvzu=481 Propoxyphene, Urine Negative ng/mL Zuhzgg=023 TESTING PERFORMED AT [facility]. ORIGINAL REPORT ON FILE IN LAB CONTAINS ADDITIONAL TEST SITE INFORMATION. __ Start: 07-24-2024 Methadone measurement, urine Dr. Alyson Arthur MD Work Phone: Start: 07-24-[address] Nancy Arthur MD Work Phone: Comment on above: Test Ordered: [id number] M03-Oeezwg+GW9Ibdmmiaaiavy Screen, Urine Negative ng/mL UI Reference Range: Yelwxr=290Qaodkawdazq test includes Amphetamine and Methamphetamine.Barbiturates Negative ng/mL UI Reference Range: Fkdpjm=864Nsjefwtssdyoqdr Negative ng/mL UI Reference Range: Tnzkms=824Tljltxv (Metab.), Urine Negative ng/mL UI Reference Range: Ccwvzn=629Ogokrvz Note: ng/mL UI See Final Results Reference Range: Skgbzj=370Ggieie test includes Codeine, Morphine, Hydromorphone, Hydrocodone.Opiates Positive [A ] UI Reference Range: Dooklu=186Gmeqap test includes Codeine, Morphine, Hydromorphone, Hydrocodone.Codeine Negative UI Reference Range: Qpjbsa=899Mxwcecqu Negative UI Reference Range: Mffhan=352Qiglggmvgmcuc Negative UI Reference Range: Wxmhmo=829Ycdjanuisiu Positive [A ] UI Reference Range: .Hydrocodone Conf, MS, UR 303 ng/mL UI Reference Range: Tztdqb=5600-Gjhuloihhizbyo, Urine Negative ng/mL UI Reference Range: Cutoff=10Oxycodone/Oxymorphone, Urine Negative ng/mL UI Reference Range: Rgqdrt=123Jtys includes Oxycodone and OxymorphonePCP, Urine Negative ng/mL UI Reference Range: Cutoff=25Methadone Screen, Urine Negative ng/mL UI Reference Range: Suwplm=782Ysagcmgwrtfn, Urine Negative ng/mL UI Reference Range: Escvyz=723Qqxhelsv, Urine Negative ng/mL UI Reference Range: Cutoff=2.0Test includes Fentanyl and NorfentanylThis test was developed and its performance characteristicsdetermined by [facility]. It has not been cleared orapproved by the Food and Drug Administration.Tramadol Negative ng/mL UI Reference Range: Zptvyh=077Yvtauktjsvzbo, Urine Negative ng/mL UI Reference Range: Cutoff=10Creatinine, Urine 17.2 [L ] mg/dL UI Reference Range: 20.0-300.0Specific [place] [place] 1.0071 UI Reference Range: .pH, Urine 5.5 UI Reference Range: 4.5-8.9Performed at: [facility] [address] [place], [place] [id number] Director: Nelson Zamorano PhD, Phone: [phone] at: [address] [id number] Director: Joe Montana PhD, Phone: [phone] Start: 06-20-2024 X-ray of knee, one o r two views Dr. Alyson Arthur MD Work Phone: Start: 02-08-2024 [employer] COVI D-19 VACCINE AGE 12+ YR ([facility] Margi Riddle COMMERCIAL LINES ACCOUNT EXECUTIVE.[facility] Work Phone: Start: 02-08-2024 Adult depression scr eening assessment Margi Riddle COMMERCIAL LINES ACCOUNT EXECUTIVE.[employer] Work Phone: Start: 06-27-2023 Ct angiography chest w/contrast/noncontrast Elma Hester COMMERCIAL LINES ACCOUNT EXECUTIVE.[facility] Work Phone: Start: 06-24-2023 Plain X-ray abdomen [...] Radex hand minimum 3 views Jim Jeffers COMMERCIAL LINES ACCOUNT EXECUTIVE.[employer] Work Phone: Start: 05-22-2023 Radiologic exam abdo men 1 view Alyson Arthur MD Work Phone: Start: 05-22-2023 Radiologic exam ches t 2 views Alyson Arthur MD Work Phone: Start: 03-16-2023 Iadna s aureus ampli fied probe tq Shlomo Alcocer MD Work Phone: Start: 11-17-2022 Co diffusing capacity M zelalem Foster COMMERCIAL LINES ACCOUNT EXECUTIVE.[employer] Work Phone: Start: 10-25-2022 Radiologic exam ches t 2 views Alyson Arthur MD Work Phone: Start: 10-09-2022 CT angiography of ch est with contrast Start: 10-09-2022 Plain chest X-ray Start: 10-09-2022 SARS-CoV-2 & FLU Ant igen (Rapid) Start: 09-30-2022 Echo tthrc r-t 2d w/ wom-mode compl spec&colr d Kathy Colbert COMMERCIAL LINES ACCOUNT EXECUTIVE.[employer] Work Phone: Start: 07-14-2022 CT LUNG SCREEN WO IVCON Amauri Jo COMMERCIAL LINES ACCOUNT EXECUTIVE.[employer] Work Phone: Start: 07-04-2022 Radex hip unilateral with pelvis 2-3 views Marci Merlos COMMERCIAL LINES ACCOUNT EXECUTIVE.[employer] Work Phone: Start: 06-24-2022 X-ray of cervical spine Start: 05-31-2022 End: 05-31-2022 Computerized ophthalmic imaging retina Greta Powers OD Work Phone: Start: 05-20-2022 [employer] COVI D-19 BIVALENT BOOSTER VACCINE, AGE 12+ YR Alyson Arthur MD Work Phone: Start: 10-18-2021 Plain chest X-ray Start: 12-28-2020 Radiologic exam ches t 2 views Marci Merlos APRN.[employer] Work Phone: Start: 04-15-2020 Radex wrist complete [...] MALIA BECERRIL DO Surgery (qualifier value) DARRYL BECERRIL DO Comment on above: lumbar fusion Plan of Treatment Date Care Activity Detail Author Start: 08-07-2029 Prostate specific an tigen measurement Prostate Cancer Screening Discussion [facility] Start: 05-03-2026 PROSTATE CANCER SCRE ENING DISCUSSION PROSTATE CANCER SCREENING DISCUSSION [facility] Start: 05-03-2026 Prostate specific an tigen measurement Prostate Cancer Screening Discussion [facility] Start: 09-11-2025 End: 09-11-2025 Patient encounter procedure Cat Scan Comment on above: CT LUNG SCREENING 12 MTH LCS Start: 09-09-2025 Screening for malign ant neoplasm of lung Lung Cancer Screening [facility] Start: 08-07-2025 Annual PCP Team Motor Vehicle Operator Road Supervisor bacilio Disease Visit Annual PCP Team Chronic Disease Visit [facility] Start: 08-07-2025 Diabetic foot examination Diabetic F oot Exam [facility] Start: 08-07-2025 Hepatitis B surface antibody level LDL Cholesterol [facility] Start: 02-07-2025 Annual PCP Team Motor Vehicle Operator Road Supervisor bacilio Disease Visit Annual PCP Team Chronic Disease Visit [facility] Start: 02-07-2025 Anxiety Screening Anxiety Screening [facility] Start: 02-07-2025 BP Controlled (<130/80) BP Controlle d (<130/80) [facility] Start: 02-07-2025 Depression Screening Depression Scre ening [facility] Start: 02-07-2025 Hepatitis B screening Urine Albumin:Creatinine Ratio [facility] Start: 02-07-2025 Hepatitis B surface antibody level LDL Cholesterol [facility] Start: 12-17-2024 End: 12-17-2024 Patient encounter procedure 12/17/2024 3:40 PM EST Office Visit [facility] [address] [place] [address] Amanda Valente MD [address] [place], [place] [id number] Overdue f/u. kh [facility] Comment on above: Overdue f/u. kh Start: 11-30-2024 End: 11-30-2024 Patient encounter procedure 11/30/2024 9:40 AM EDT Office Visit [facility] [place] [address] [place] [address] Alyson Arthur MD [address] [place], [place] [id number] 3 month follow up [facility] [place] Comment on above: 3 month follow up Start: 11-07-2024 Hemoglobin A1c measurement HbA1C [facility] Start: 10-29-2024 End: 10-29-2024 Patient encounter procedure 10/29/2024 2:00 PM EDT Office Visit Vascular Surgery [address] [place] [address] Franklin Espinal, DO [address] [place] [address] Peripheral vascular disease [I73.9] Vascular Surgery Comment on above: Peripheral vascular disease [I73.9] Start: 10-16-2024 End: 10-16-2024 Patient encounter procedure Vasculary Surgery Comment on above: Arterial ischemic st roke, MCA (middle cerebral artery), left, acute (HCC) [I63.5... Peripheral vascular disease [I73.9] Start: 10-14-2024 Influenza vaccination Influenza Vacc ine (#1) [facility] Start: 10-01-2024 End: 10-01-2024 Patient encounter procedure 10/01/2024 10:00 AM EDT Office Visit Vascular Surgery [address] [place], [place] [id number] Franklin Espinal, DO [address] [place] [address] VASCULAR Vascular Surgery Comment on [...] Visit Vascular Surgery [address] [place], [place] [id number] Franklin Espinal, DO [address] [place] [address] rescheduled from 08/20 Vascular Surgery Comment on above: rescheduled from Start: 08-20-2024 End: 08-20-2024 Patient encounter procedure 08/20/2024 10:00 AM EDT Office Visit [facility]ascular [facility] [address] [facility] [place], [place] [id number] Franklin Espinal, DO [address] [place], [place] [id number] Dx: Peripheral vascular disease [I73.9] Vascular Surgery Comment on above: Dx: Peripheral vascu lar disease [I73.9] Start: 08-08-2024 Glaucoma screening Dilated Retinal E xam [facility] Comment on above: Postponed from 05/31 (Declined at this time) Start: 08-07-2024 End: 11-06-2024 Hemoglobin A1c in Blood [facility] Comment on above: Expected: 08/07/2024 , Expires: 11/06/2024 Start: 08-07-2024 End: 08-07-2024 Patient encounter procedure 08/07/2024 9:20 AM EDT Office Visit Family Medicine [place] [address] [place] [address] Angela Schmid APRN.SEASONER HAND [address] [facility] [place] [address] Medication Follow up Family Medicine [place] Comment on above: Medication Follow up Start: 07-25-2024 End: 07-25-2024 Patient encounter procedure 07/25/2024 9:40 AM EDT Office Visit Family Medicine [place] [address] [place] [address] Margi Riddle APRN.SEASONER HAND [address] [place] [address] 6 month follow up [facility] Medicine [place] Comment on above: 6 month follow up Start: 07-04-2024 Annual PCP Team Motor Vehicle Operator Road Supervisor bacilio Disease Visit Annual PCP Team Chronic Disease Visit [facility] Start: 07-04-2024 BP Controlled (<130/80) BP Controlle d (<130/80) [facility] Start: 06-05-2024 BP Controlled (<130/80) BP Controlle d (<130/80) [facility] Start: 05-28-2024 BP Controlled (<130/80) BP Controlle d (<130/80) [facility] Start: 05-21-2024 Annual PCP Team Motor Vehicle Operator Road Supervisor bacilio Disease Visit Annual PCP Team Chronic Disease Visit [facility] Start: 05-08-2024 Hemoglobin A1c measurement HbA1C [facility] Start: 04-22-2024 End: 04-22-2024 Patient encounter procedure 04/22/2024 8:30 AM EDT Office Visit Pulmonary Medicine [address] [place] [address] Amauri Jo APRN.SEASONER HAND [address] [place] [address] Encounter for screening for lung cancer [Z12.2] Pulmonary Medicine Comment on above: Encounter for screen ing for lung cancer [Z12.2] Start: 03-23-2024 Hepatitis B surface antibody level LDL Cholesterol [facility] Start: 03-16-2024 BP Controlled (<130/80) BP Controlle d (<130/80) [facility] Start: 03-02-2024 Diabetic foot examination Diabetic F oot Exam [facility] Start: 02-28-2024 Annual PCP Team Motor Vehicle Operator Road Supervisor bacilio Disease Visit Annual PCP Team Chronic Disease Visit [facility] Start: 02-14-2024 Medicare Advantage A nnual Wellness Visit Medicare Advantage Annual Wellness Visit [facility] Start: 02-08-2024 End: 05-09-2024 Alpha 1 antitrypsin [Mass/volume] in Serum or Plasma [facility] Work Phone: Comment on above: Expected: 02/08/2024 , Expires: 05/09/2024 Start: 02-08-2024 End: 05-09-2024 Cobalamin (Vitamin B12) [Mass/volume] in Serum or Plasma [facility] Comment on above: Expected: 02/08/2024 , Expires: 05/09/2024 Start: 02-08-2024 End: 05-09-2024 Magnesium [Mass/volume] in Serum or Plasma [facility] Comment on above: Expected: 02/08/2024 , Expires: 05/09/2024 Start: 02-08-2024 End: 05-09-2024 Microalbumin/Creatinine [Mass Ratio] in Urine [facility] Comment on above: Expected: 02/08/2024 , Expires: 05/09/2024 Start: 02-08-2024 End: 05-09-2024 Thyrotropin [Units/volume] in Serum or Plasma [facility] Comment on above: Expected: 02/08/2024 , Expires: 05/09/2024 Start: 02-08-2024 End: 05-09-2024 Urinalysis complete panel - Urine [facility] Comment on above: Expected: 02/08/2024 , Expires: 05/09/2024 Start: 02-08-2024 End: 02-08-2024 Patient encounter procedure 02/08/2024 11:20 AM EST Office Visit Family [facility] [address] [place], [place] [phone] Margi Riddle APRN.SEASONER HAND [address] [place] [address] med check.f/u Family [facility] Comment on above: med check.f/u Start: 01-05-2024 End: 01-05-2024 Patient encounter procedure 01/05/2024 1:20 PM EST Office Visit [facility] [address] [place], [place] [id number] Margi Riddle APRN.SEASONER HAND [address] [place] [address] med check / follow up- see TE regarding Novolog [facility] Comment on above: med check / follow u p- see TE regarding Novolog Start: 12-25-2023 End: 12-25-2023 Patient encounter procedure 12/25/2023 1:20 PM EST Office Visit [facility] [address] [place] [address] Angela Schmid APRN.SEASONER HAND [address] [place] [address] med check / follow up- see TE regarding Novolog [facility] Comment on above: med check / follow u p- see TE regarding Novolog Start: 12-11-2023 End: 12-11-2023 Patient encounter procedure 12/11/2023 8:40 AM EDT Office Visit Cardiology [address] [place] [address] Amanda Valente MD [address] , [address] [place] [address] Follow up Cardiology Comment on above: Follow up Start: 12-06-2023 End: 03-06-2024 CBC W Auto Differential panel - Blood COMPLETE BLOOD COUNT AND DIFFERENTIAL Lab Routine Type 2 diabetes mellitus without complication, without long-term current use of insulin (HCC) Expected: 12/06/2023, Expires: 03/06/2024 [facility] Work Phone: Comment on above: Expected: 12/06/2023 , Expires: 03/06/2024 Start: 12-06-2023 End: 03-06-2024 Comprehensive metabolic 2000 panel - Serum or Plasma COMPREHENSIVE METABOLIC PANEL Lab Routine Type 2 diabetes mellitus without complication, without long-term current use of insulin (HCC) Expected: 12/06/2023, Expires: 03/06/2024 [facility] Comment on above: Expected: 12/06/2023 , Expires: 03/06/2024 Start: 12-06-2023 End: 03-06-2024 Hemoglobin A1c in Blood HEMOGLOBIN A1C Lab Routine Type 2 diabetes mellitus without complication, without long-term current use of insulin (HCC) Expected: 12/06/2023, Expires: 03/06/2024 [facility] Comment on above: Expected: 12/06/2023 , Expires: 03/06/2024 Start: 12-06-2023 End: 03-06-2024 Lipid 1996 panel - Serum or Plasma LIPID PANEL BASIC Lab Routine Type 2 diabetes mellitus without complication, without long-term current use of insulin (HCC) Expected: 12/06/2023, Expires: 03/06/2024 [facility] Comment on above: Expected: 12/06/2023 , Expires: 03/06/2024 Start: 12-01-2023 Annual PCP Team Motor Vehicle Operator Road Supervisor bacilio Disease Visit Annual PCP Team Chronic Disease Visit [facility] Start: 11-21-2023 Hemoglobin A1c measurement HbA1C [facility] Start: 11-10-2023 Annual PCP Team Motor Vehicle Operator Road Supervisor bacilio Disease Visit Annual PCP Team Chronic Disease Visit [facility] Start: 11-03-2023 End: 11-03-2023 Patient encounter procedure 11/03/2023 10:40 AM EDT Office Visit Family Medicine [place] [address] [place] [address] Margi Riddle APRN.SEASONER HAND [address] [place], [place] [address] [facility] ER Follow Up/pneumonia 10/18/23 Family Medicine [place] Comment on above: [facility] ER Follow Up/pne umonia 10/18/23 Start: 10-26-2023 Annual PCP Team Motor Vehicle Operator Road Supervisor bacilio Disease Visit Annual PCP Team Chronic Disease Visit [facility] Start: 10-26-2023 BP Controlled (<130/80) BP Controlle d (<130/80) [facility] Start: 10-26-2023 Hepatitis B surface antibody level LDL Cholesterol [facility] Start: 10-15-2023 Covid-19 Vaccine ( season) Covid-19 Vaccine () [facility] Start: 10-15-2023 Covid-19 Vaccine ( season) Covid-19 Vaccine ( season) [facility] Start: 10-15-2023 Influenza vaccination Influenza Vacc ine (#1) [facility] Start: 09-29-2023 ANNUAL PCP TEAM RUSTIC TERRAZZO SETTER BACILIO DISEASE VISIT ANNUAL PCP TEAM CHRONIC DISEASE VISIT [facility] Start: 08-28-2023 Hemoglobin A1c measurement HbA1C [facility] Start: 07-19-2023 End: 07-19-2023 Patient encounter procedure 07/19/2023 3:00 PM EDT Office Visit Neurology [address] [place] [address] Ivy Aavlos MD [address] [place] [id number] Right hemiparesis (HCC) [G81.91] Neurology Comment on above: Right hemiparesis (H CC) [G81.91] Start: 07-16-2023 End: 08-14-2023 CT LUNG SCREEN WO IVCON CT LUNG SCREEN WO IVCON Radiology Routine Encounter for screening for lung cancer Tobacco use current Expected: 07/16/2023, Expires: 08/14/2023 [facility] Work Phone: Comment on above: Expected: 07/16/2023 , Expires: 08/14/2023 Start: 07-15-2023 Influenza vaccination LUNG CANCER SC REENING [facility] Start: 07-15-2023 Screening for malign ant neoplasm of lung Lung Cancer Screening [facility] Start: 07-05-2023 End: 07-05-2023 Patient encounter procedure Family Medicine [place] Comment on above: hospital follow up hospital follow up ( [facility] dc'd 06/24/23 dx: SBO) Start: 07-03-2023 End: 07-03-2023 Patient encounter procedure 07/03/2023 10:00 AM EDT Office Visit Stroke Neurology [address] [place], [place] [id number] Laurel Pierce DO [address] [place] [address] HD Stroke Stroke Neurology Comment on above: HD Stroke Start: 06-29-2023 ANNUAL PCP TEAM RUSTIC TERRAZZO SETTER BACILIO DISEASE VISIT ANNUAL PCP TEAM CHRONIC DISEASE VISIT [facility] Start: 06-27-2023 End: 06-27-2023 Patient encounter procedure Radiology Comment on above: Aneurysm of ascendin g 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 (HCC) [I71.21] 3 Month Follow Up Start: 06-24-2023 Patient discharge [facility] Start: 06-23-2023 End: 06-24-2023 [facility] Start: 06-23-2023 Following clinical p athway protocol [facility] Start: 06-23-2023 Referral to service [facility] Start: 06-23-2023 End: 06-23-2023 Patient encounter procedure 06/23/2023 11:20 AM EDT Office Visit Family [place] [address] [place], [place] [phone] Alyson Arthur MD [address] [place], [place] [id number] 4 week follow up. Hospital follow up Family [facility] Comment on above: 4 week follow up. Ho sandrinetal follow up Start: 06-23-2023 Referral to general surgeon [facility] Start: 06-23-2023 Blood chemistry [facility] Start: 06-23-2023 Complete blood count [facility] Start: 06-23-2023 Following clinical p athway protocol [facility] Start: 06-23-2023 Application of intermittent pneumatic compression device [facility] Start: 06-23-2023 Inhalation therapy procedure [facility] Start: 06-22-2023 End: 06-22-2023 [facility] Start: 06-22-2023 Following clinical p athway protocol [facility] Start: 06-22-2023 Ambulation without limitation [facility] Start: 06-22-2023 Assessment of risk o f venous thromboembolism [facility] Start: 06-22-2023 Insertion of cathete r into peripheral vein [facility] Start: 06-22-2023 Oxygen therapy [facility] Start: 06-22-2023 Providing care accor ding to standard [facility] Start: 06-22-2023 Referral to occupati onal therapist [facility] Start: 06-22-2023 Referral to service [facility] Start: 06-22-2023 Plain X-ray abdomen Abdomen Si ngle View (Portable) [facility] Start: 06-22-2023 XR Abdomen Single view [facility] Start: 06-22-2023 Care regimes management [facility] Start: 06-22-2023 Notification of physician [facility] Start: 06-22-2023 [facility] Start: 06-22-2023 Verification routine [facility] Start: 06-22-2023 Admission procedure [facility] Start: 06-22-2023 Hospital admission, emergency, from emergency room, medical nature [facility] Start: 06-22-2023 [facility] Start: 06-06-2023 End: 06-06-2023 Patient encounter procedure 06/06/2023 3:15 PM EDT Office Visit Cardiology [address] [id number] Kiel Barnes MD [address] [place] [address] OPEN HEART Cardiology Comment on above: OPEN HEART Start: 06-01-2023 Glaucoma screening Dilated Retinal E xam [facility] Start: 06-01-2023 Hepatitis C antibody , confirmatory test DILATED RETINAL EXAM [facility] Start: 05-28-2023 Hepatitis B screening URINE ALBUMIN:CREATININE RATIO [facility] Start: 05-22-2023 End: 08-21-2023 Comprehensive metabolic 2000 panel - Serum or Plasma [facility] Work Phone: Comment on above: Expected: 05/22/2023 , Expires: 08/21/2023 Start: 05-21-2023 3 comp foot exam completed DIABETIC FOOT EXAM [facility] Start: 05-21-2023 ANNUAL PCP TEAM RUSTIC TERRAZZO SETTER BACILIO DISEASE VISIT ANNUAL PCP TEAM CHRONIC DISEASE VISIT [facility] Start: 05-21-2023 Diabetic foot examination Diabetic F oot Exam [facility] Start: 05-21-2023 HIV SCREENING HIV SCREENING [facility] Comment on above: Postponed from 09/14 (Declined at this time) Start: 05-21-2023 HIV screening HIV Screening [facility] Comment on above: Postponed from 09/14 (Declined at this time) Start: 05-21-2023 SHINGRIX VACCINE (1 of 2) PARKER GRIX VACCINE (1 of 2) [facility] Comment on above: Postponed from 09/14 (Declined at this time) Start: 05-21-2023 Urine microalbumin profile [facility] Comment on above: Postponed from 09/14 (Declined at this time) Start: 03-31-2023 Hemoglobin A1c measurement HbA1C [facility] Start: 03-31-2023 Hemoglobin A1c/Hemoglobin.total in Blood HBA1C [facility] Start: 02-13-2023 Behavioral Health Screening Behavioral Health Screening [facility] Start: 02-13-2023 Depression Assessment Depression Ass essment [facility] Start: 11-30-2022 End: 03-01-2023 Comprehensive metabolic 2000 panel - Serum or Plasma [facility] Work Phone: Comment on above: Expected: 11/30/2022 , Expires: 03/01/2023 Start: 11-19-2022 Hemoglobin A1c/Hemoglobin.total in Blood HBA1C [facility] Start: 10-27-2022 Hepatitis B surface antibody level LDL CHOLESTEROL [facility] Start: 10-25-2022 End: 12-25-2022 Basic metabolic 2000 panel - Serum or Plasma [facility] Work Phone: Comment on above: Expected: 10/25/2022 , Expires: 12/25/2022 Start: 10-25-2022 End: 12-25-2022 LIPID PANEL, NONFASTING [facility] Work Phone: Comment on above: Expected: 10/25/2022 , Expires: 12/25/2022 Start: 10-25-2022 End: 12-25-2022 Magnesium [Mass/volume] in Serum or Plasma [facility] Work Phone: Comment on above: Expected: 10/25/2022 , Expires: 12/25/2022 Start: 10-22-2022 3 comp foot exam completed DIABETIC FOOT EXAM [facility] Start: 10-22-2022 ANNUAL PCP TEAM RUSTIC TERRAZZO SETTER BACILIO DISEASE VISIT ANNUAL PCP TEAM CHRONIC DISEASE VISIT [facility] Start: 10-14-2022 Covid-19 Vaccine ( season) Covid-19 Vaccine ( season) [facility] Start: 10-14-2022 [facility] Start: 10-13-2022 Blood chemistry [facility] Start: 10-12-2022 Blood chemistry [facility] Start: 10-11-2022 Patient discharge [facility] Start: 10-11-2022 Oxygen therapy [facility] Start: 10-09-2022 Following clinical p athway protocol [facility] Start: 10-09-2022 Assessment of risk o f venous thromboembolism [facility] Start: 10-09-2022 Care regimes management [facility] Start: 10-09-2022 Consultation for treatment [facility] Start: 10-09-2022 Continuous positive airway pressure ventilation treatment [facility] Start: 10-09-2022 Inhalation therapy procedure [facility] Start: 10-09-2022 Insertion of cathete r into peripheral vein [facility] Start: 10-09-2022 Notification of physician [facility] Start: 10-09-2022 Providing care accor ding to standard [facility] Start: 10-09-2022 Provision of activit y privileges [facility] Start: 10-09-2022 Referral to occupati onal therapist [facility] Start: 10-09-2022 Referral to service [facility] Start: 10-09-2022 [facility] Start: 10-09-2022 Streptococcus pneumo niae antigen assay [facility] Start: 10-09-2022 Verification routine [facility] Start: 10-09-2022 Admission procedure [facility] Start: 08-09-2022 End: 10-09-2022 Hemoglobin A1c in Blood HGB A1C Lab Routine Controlled type 2 diabetes mellitus with diabetic neuropathy, with long-term current use of insulin ([facility]) Expected: 08/09/2022, Expires: 10/09/2022 [facility] Work Phone: Comment on above: Expected: 08/09/2022 , Expires: 10/09/2022 Start: 05-23-2022 End: 07-23-2022 Basic metabolic 2000 panel - Serum or Plasma BASIC METABOLIC PNL Lab Routine Bicuspid aortic valve Nonrheumatic aortic valve stenosis Edema, unspecified type Chronic diastolic heart failure (HCC) Primary hypertension Expected: 05/23/2022, Expires: 07/23/2022 [facility] Work Phone: Comment on above: Expected: 05/23/2022 , Expires: 07/23/2022 Start: 05-23-2022 End: 07-23-2022 Natriuretic peptide.B prohormone N-Terminal [Mass/volume] in Serum or Plasma NT PRO BNP Lab Routine Bicuspid aortic valve Nonrheumatic aortic valve stenosis Edema, unspecified type Chronic diastolic heart failure (HCC) Expected: 05/23/2022, Expires: 07/23/2022 [facility] Work Phone: Comment on above: Expected: 05/23/2022 , Expires: 07/23/2022 Start: 05-20-2022 End: 07-20-2022 ALBUMIN/CREAT RATIO RND UR ALBUMIN/CREAT RATIO RND UR Lab Routine Type 2 diabetes mellitus with microalbuminuria, with long-term current use of insulin (HCC) Expected: 05/20/2022, Expires: 07/20/2022 [facility] Work Phone: Comment on above: Expected: 05/20/2022 , Expires: 07/20/2022 Start: 05-20-2022 End: 07-20-2022 Comprehensive metabolic 2000 panel - Serum or Plasma [facility] Work Phone: Comment on above: Expected: 05/20/2022 , Expires: 07/20/2022 Start: 05-20-2022 End: 07-20-2022 Hemoglobin A1c in Blood [facility] Work Phone: Comment on above: Expected: 05/20/2022 , Expires: 07/20/2022 Start: 05-03-2022 3 comp foot exam completed DIABETIC FOOT EXAM [facility] Start: 05-03-2022 ANNUAL PCP TEAM RUSTIC TERRAZZO SETTER BACILIO DISEASE VISIT ANNUAL PCP TEAM CHRONIC DISEASE VISIT [facility] Start: 05-03-2022 Hepatitis B screening URINE ALBUMIN:CREATININE RATIO [facility] Start: 05-03-2022 Hepatitis B surface antibody level LDL CHOLESTEROL [facility] Start: 05-03-2022 HIV SCREENING HIV SCREENING [facility] Comment on above: Postponed from 09/14 (Declined at this time) Start: 02-13-2022 DEPRESSION ASSESSMENT DEPRESSION ASS ESSMENT [facility] Start: 01-26-2022 Hemoglobin A1c/Hemoglobin.total in Blood HBA1C [facility] Start: 01-21-2022 End: 03-23-2022 Hemoglobin A1c in Blood HGB A1C Lab Routine Type 2 diabetes mellitus with microalbuminuria, with long-term current use of insulin (HCC) Expected: 01/21/2022, Expires: 03/23/2022 [facility] Work Phone: Comment on above: Expected: 01/21/2022 , Expires: 03/23/2022 Start: 10-23-2021 End: 12-23-2021 Magnesium [Mass/volume] in Serum or Plasma MAGNESIUM BLD Lab Routine Current use of proton pump inhibitor Expected: 10/23/2021, Expires: 12/23/2021 [facility] Work Phone: Comment on above: Expected: 10/23/2021 , Expires: 12/23/2021 Start: 10-22-2021 End: 12-22-2021 25-hydroxyvitamin D3 [Mass/volume] in Serum or Plasma VITAMIN D 25 HYDROXY Lab Routine Vitamin D deficiency Expected: 10/22/2021, Expires: 12/22/2021 [facility] Work Phone: Comment on above: Expected: 10/22/2021 , Expires: 12/22/2021 Start: 10-22-2021 End: 12-22-2021 CBC panel - Blood by Automated count CBC Lab Routine Type 2 diabetes mellitus with microalbuminuria, with long-term current use of insulin ([facility]) Fatigue, unspecified type Expected: 10/22/2021, Expires: 12/22/2021 [facility] Work Phone: Comment on above: Expected: 10/22/2021 , Expires: 12/22/2021 Start: 10-22-2021 End: 12-22-2021 Comprehensive metabolic 2000 panel - Serum or Plasma COMP METABOLIC PANEL Lab Routine Nonrheumatic aortic valve stenosis Bicuspid aortic valve Expected: 10/22/2021, Expires: 12/22/2021 [facility] Work Phone: Comment on above: Expected: 10/22/2021 , Expires: 12/22/2021 Start: 10-22-2021 End: 12-22-2021 Lipid 1996 panel - Serum or Plasma LIPID PANEL BASIC Lab Routine Nonrheumatic aortic valve stenosis Bicuspid aortic valve Expected: 10/22/2021, Expires: 12/22/2021 [facility] Work Phone: Comment on above: Expected: 10/22/2021 , Expires: 12/22/2021 Start: 10-22-2021 End: 12-22-2021 Thyrotropin [Units/volume] in Serum or Plasma TSH BLD Lab Routine Morbid obesity with BMI of 50.0-59.9, adult ([facility]) Expected: 10/22/2021, Expires: 12/22/2021 [facility] Work Phone: Comment on above: Expected: 10/22/2021 , Expires: 12/22/2021 Start: 10-18-2021 [facility] Garcia [facility] Work Phone: Start: 10-14-2021 Influenza vaccination C [facility] Start: 2021 Hepatitis B Vaccine (1 of 3 - Risk 3-dose series) Hepatitis B Vaccine (1 of 3 - Risk 3-dose series) [facility] Start: 2021 RSV Vaccine (1 - 1-d ose 60+ series) RSV Vaccine (1 - 1-dose 60+ series) [facility] Start: 2021 RSV Vaccine (1 - Ris k 60-74 years 1-dose series) RSV Vaccine (1 - Risk 60-74 years 1-dose series) [facility] Start: 08-03-2021 Hemoglobin A1c/Hemoglobin.total in Blood HBA1C [facility] Start: 03-24-2021 COVID-19 VACCINE (3 - Booster for Pfizer series) COVID-19 VACCINE (3 - Booster for Pfizer series) [facility] Start: 02-13-2021 DEPRESSION ASSESSMENT DEPRESSION ASS ESSMENT [facility] Start: 12-17-2020 COVID-19 VACCINE (3 - Booster for Pfizer series) COVID-19 VACCINE (3 - Booster for Pfizer series) [facility] Start: 01-13-2020 Hepatitis C antibody , confirmatory test DILATED RETINAL EXAM [facility] Start: 02-13-2017 Colonoscopy COLONOSCOPY [facility] Start: 02-13-2017 COLORECTAL CANCER SCREENING COLORECTAL CANCER SCREENING [facility] Start: 02-13-2017 Screening for malign ant neoplasm of colon [facility] Start: 11-10-2016 Adult depression scr eening assessment DEPRESSION SCREENING [facility] Start: 11-02-2011 PNEUMOCOCCAL (2 - PCV) PNEUMOCOCCAL (2 - PCV) [facility] Start: 09-15-2011 Influenza vaccination LUNG CANCER SC REENING [facility] Start: 09-15-2011 SHINGRIX VACCINE (1 of 2) PARKER GRIX VACCINE (1 of 2) [facility] Start: 2006 COLOGUARD (FIT-DNA) COLOGUARD (FIT-D NA) [facility] Start: [address] COLONOGRAPHY [facility] Start: 2006 FECAL OCCULT BLOOD FECAL OCCULT BLOO D [facility] Start: 2006 Screening for malign ant neoplasm of colon [facility] Start: 2006 SIGMOIDOSCOPY SIGMOIDOSCOPY [facility] Start: 09-15-1991 Zoledronic acid therapy Alpha- 1 Antitrypsin Deficiency Screening [facility] Start: 1980 HEPATITIS B (1 of 3 - Risk 3-dose series) HEPATITIS B (1 of 3 - Risk 3-dose series) [facility] Start: 1980 Urine microalbumin profile [facility] Start: 09-15-1979 Anxiety Screening Anxiety Screening [facility] Start: 09-15-1979 BP CONTROLLED (<130/80) BP CONTROLLE D (<130/80) [facility] Start: 09-15-1979 Depression Screening Depression Scre ening [facility] Start: 09-15-1979 HIV SCREENING HIV SCREENING [facility] Start: 09-15-1979 HIV screening HIV Screening [facility] Start: 09-15-1979 Spirometry Spirometry [facility] Anion gap measurement [facility] BUN/Creatinine ratio [facility] Calcium [Mass/volume ] in Serum or Plasma [facility] Carbon dioxide, tota l [Moles/volume] in Serum or Plasma [facility] Chloride [Moles/volu me] in Serum or Plasma [facility] COLOGUARD COLOGUARD Lab [facility] [place] Screening for colon cancer Ordered: 05/20/2022 [facility] Work Phone: Comment on above: Ordered: 05/20/2022 Creatinine [Moles/vo lume] in Serum or Plasma [facility] End: 12-08-2023 Ct angio abd&plvis cntrst mtrl w/wo cntrst img CTA ABD/PEL W IVCON Radiology Routine Encounter for preprocedural cardiovascular examination Sleep apnea, unspecified type Bicuspid aortic valve Nonrheumatic aortic valve stenosis Preoperative testing 1 Occurrences starting 11/08/2022 until 12/08/2023 [facility] Work Phone: Comment on above: 1 Occurrences starti ng 11/08/2022 until 12/08/2023 Ct angio abd&plvis c ntrst mtrl w/wo cntrst img CTA ABD/PEL W IVCON Radiology Routine Encounter for preprocedural cardiovascular examination Sleep apnea, unspecified type Bicuspid aortic valve Nonrheumatic aortic valve stenosis Preoperative testing 11/24/2022 9:39 AM EDT [facility] Work Phone: End: 12-08-2023 Ct angiography chest w/contrast/noncontrast CTA CHEST (GATED) WO/W IVCON Radiology Routine Encounter for preprocedural cardiovascular examination Sleep apnea, unspecified type Bicuspid aortic valve Nonrheumatic aortic valve stenosis Preoperative testing 1 Occurrences starting 11/08/2022 until 12/08/2023 [facility] Work Phone: Comment on above: 1 Occurrences starti ng 11/08/2022 until 12/08/2023 Ct angiography chest w/contrast/noncontrast CTA CHEST (GATED) WO/W IVCON Radiology Routine Encounter for preprocedural cardiovascular examination Sleep apnea, unspecified type Bicuspid aortic valve Nonrheumatic aortic valve stenosis Preoperative testing 11/24/2022 9:39 AM EDT [facility] Work Phone: End: 05-04-2025 CT Chest for screening WO contrast CT LUNG SCREEN WO IVCON Radiology Routine Cigarette smoker 1 Occurrences starting 04/04/2024 until 05/04/2025 [facility] Work Phone: Comment on above: 1 Occurrences starti ng 04/04/2024 until 05/04/2025 End: 10-09-2025 CT Chest for screening WO contrast CT LUNG SCREEN WO IVCON Radiology Routine Encounter for screening for lung cancer Tobacco use current 1 Occurrences starting 09/09/2024 until 10/09/2025 [facility] Work Phone: Comment on above: 1 Occurrences starti ng 09/09/2024 until 10/09/2025 CT Chest for screeni ng WO contrast CT LUNG SCREEN WO IVCON Radiology Routine Cigarette smoker 09/09/2024 10:38 AM EDT [facility] Work Phone: DEFINITY CONTRAST DEFINITY CONTR AST Echo Routine Nonrheumatic aortic valve stenosis Bicuspid aortic valve LVH (left ventricular hypertrophy) Ordered: 10/22/2021 [facility] Work Phone: Comment on above: Ordered: 10/22/2021 End: 10-22-2022 Echocardiography ECHO Cardiology SEVERIANO Nonrheumatic aortic valve stenosis Bicuspid aortic valve LVH (left ventricular hypertrophy) 1 Occurrences starting 10/22/2021 until 10/22/2022 [facility] Work Phone: Comment on above: 1 Occurrences starti ng 10/22/2021 until 10/22/2022 End: 05-24-2023 Echocardiography ECHO Cardiology Routine Bicuspid aortic valve Nonrheumatic aortic valve stenosis 1 Occurrences starting 05/23/2022 until 05/24/2023 [facility] Work Phone: Comment on above: 1 Occurrences starti ng 05/23/2022 until 05/24/2023 Erythrocyte mean corpuscular volume determination [facility] Glucose [Mass/volume ] in Serum or Plasma [facility] Hematocrit [Volume Fraction] of Blood [facility] Hemoglobin [Mass/vol ume] in Blood [facility] Hemoglobin A1c/Hemoglobin.total in Blood [facility] Hemoglobin.gastroint estina l.lower [Presence] in Stool by Immunoassay IMMUNOCHEMICAL FECAL OCCULT BLOOD TEST Lab Routine Screening for colon cancer Ordered: 02/08/2024 [facility] Comment on above: Ordered: 02/08/2024 Legionella pneumophi la Ag [Presence] in Urine [facility] Leukocytes [#/volume ] in Blood [facility] End: 12-08-2023 LUNG DIFFUSION CAPACITY (DLCO) LUNG DIFFUSION CAPACITY (DLCO) PFT Routine Encounter for preprocedural cardiovascular examination Sleep apnea, unspecified type Bicuspid aortic valve Nonrheumatic aortic valve stenosis Preoperative testing 1 Occurrences starting 11/08/2022 until 12/08/2023 [facility] Work Phone: Comment on above: 1 Occurrences starti ng 11/08/2022 until 12/08/2023 End: 12-08-2023 LUNG VOLUMES LUNG VOLUMES PFT Routine Encounter for preprocedural cardiovascular examination Sleep apnea, unspecified type Bicuspid aortic valve Nonrheumatic aortic valve stenosis Preoperative testing 1 Occurrences starting 11/08/2022 until 12/08/2023 [facility] Work Phone: Comment on above: 1 Occurrences starti ng 11/08/2022 until 12/08/2023 Mean corpuscular hemoglobin concentration determination [facility] Mean corpuscular hemoglobin determination [facility] Measurement of renal function [facility] End: 11-24-2023 Mri brain brain stem w/o contrast material MRI BRAIN WO IVCON Radiology Routine Vision changes Headache, unspecified headache type 1 Occurrences starting 10/25/2022 until 11/24/2023 [facility] Work Phone: Comment on above: 1 Occurrences starti ng 10/25/2022 until 11/24/2023 Patient Education [facility] Work Phone: Patient referral [facility] Work Phone: Platelets [#/volume] in Blood [facility] Potassium [Moles/vol ume] in Serum or Plasma [facility] End: 12-06-2023 PVR ANK PRESS [facility] PVR ANK PRESS [facility] Vascular Lab Routine Diminished pulses in lower extremity Diabetic mononeuropathy associated with diabetes mellitus due to underlying condition (HCC) 1 Occurrences starting 12/05/2022 until 12/06/2023 [facility] Work Phone: Comment on above: 1 Occurrences starti ng 12/05/2022 until 12/06/2023 End: 11-24-2023 Radiologic exam chest 2 views XR CHEST 2V FRONTAL/LAT Radiology Routine Bacterial pneumonia 1 Occurrences starting 10/25/2022 until 11/24/2023 [facility] Work Phone: Comment on above: 1 Occurrences starti ng 10/25/2022 until 11/24/2023 Radiologic exam ches t 2 views XR CHEST 2V FRONTAL/LAT Radiology Routine Bacterial pneumonia 10/25/2022 3:50 PM EDT [facility] Work Phone: Red blood cell count [facility] Red cell distributio n width determination [facility] Removal impacted cer umen irrigation/lvg unilat AMBULATORY EAR LAVAGE/IRRIGATION Procedures Routine Impacted cerumen of left ear Ordered: 08/07/2024 [facility] Comment on above: Ordered: 08/07/2024 Sodium [Moles/volume ] in Serum or Plasma [facility] End: 12-08-2023 SPIROMETRY BASELINE ONLY SPIROMETRY BASELINE ONLY PFT Routine Encounter for preprocedural cardiovascular examination Sleep apnea, unspecified type Bicuspid aortic valve Nonrheumatic aortic valve stenosis Preoperative testing 1 Occurrences starting 11/08/2022 until 12/08/2023 [facility] Work Phone: Comment on above: 1 Occurrences starti ng 11/08/2022 until 12/08/2023 Urea nitrogen [Mass/volume] in Serum or Plasma [facility] End: 08-07-2025 US Carotid arteries - bilateral US CAROTID ARTERIES [facility] Vascular Lab Routine Arterial ischemic stroke, MCA (middle cerebral artery), left, acute (HCC) Bilateral carotid artery stenosis 1 Occurrences starting 08/07/2024 until 08/07/2025 [facility] Comment on above: 1 Occurrences starti ng 08/07/2024 until 08/07/2025 End: 12-21-2023 US CAROTID ARTERIES [facility] US CAROTID ARTERIES [facility] Vascular Lab Routine Preoperative testing Encounter for preprocedural cardiovascular examination Severe aortic stenosis 1 Occurrences starting 12/21/2022 until 12/21/2023 [facility] Work Phone: Comment on above: 1 Occurrences starti ng 12/21/2022 until 12/21/2023 End: 08-07-2025 US.doppler Extremity arteries - bilateral for physiologic artery study PVR ANK PRESS [facility] Vascular Lab Routine Peripheral vascular disease 1 Occurrences starting 08/07/2024 until 08/07/2025 [facility] Work Phone: Comment on above: 1 Occurrences starti ng 08/07/2024 until 08/07/2025 End: 06-20-2024 XR Abdomen Supine and Upright XR ABDOMEN 1V SUPINE Radiology Routine Small bowel obstruction (HCC) 1 Occurrences starting 05/22/2023 until 06/20/2024 [facility] Work Phone: Comment on above: 1 Occurrences starti ng 05/22/2023 until 06/20/2024 XR Abdomen Supine an d Upright XR ABDOMEN 1V SUPINE Radiology Routine Small bowel obstruction (HCC) 05/22/2023 11:02 AM EDT [facility] Work Phone: End: 01-04-2024 XR FOOT GENERAL 3V AP/LAT/OBL RIGHT XR FOOT GENERAL 3V AP/LAT/OBL RIGHT Radiology Routine Venous insufficiency Blister 1 Occurrences starting 12/05/2022 until 01/04/2024 [facility] Work Phone: Comment on above: 1 Occurrences starti ng 12/05/2022 until 01/04/2024 XR FOOT GENERAL 3V AP/LAT/OBL RIGHT XR FOOT GENERAL 3V AP/LAT/OBL RIGHT Radiology Routine Venous insufficiency Blister 12/05/2022 4:52 PM EDT [facility] Work Phone: End: 01-04-2024 XR TIBIA FIBULA 2V AP/LAT RIGHT XR TIBIA FIBULA 2V AP/LAT RIGHT Radiology Routine Venous insufficiency 1 Occurrences starting 12/05/2022 until 01/04/2024 [facility] Work Phone: Comment on above: 1 Occurrences starti ng 12/05/2022 until 01/04/2024 XR TIBIA FIBULA 2V A P/LAT RIGHT XR TIBIA FIBULA 2V AP/LAT RIGHT Radiology Routine Venous insufficiency 12/05/2022 4:52 PM EDT [facility] Work Phone: [facility] CT & VAS [facility] Immunizations Immunization Date Immunization Notes Care Provider Re pabon 02-08-2024 COVID-19 vaccine, ag e 12+ yr ([employer] ERIBERTO) Margi Riddle [employer] Work Phone: [facility] 02-08-2024 influenza, seasonal, injectable Margi Riddle [employer] Work Phone: [facility] 02-08-2024 influenza virus vaccine, unspecified formulation Alyson Arthur MD Work Phone: [facility] 02-27-2023 influenza virus vaccine, unspecified formulation MALIA BECERRIL DO [facility] 02-27-2023 influenza, injectabl e, quadrivalent, contains preservative [facility] Work Phone: [facility] 05-20-2022 pneumococcal Conjuga te, unspecified formulation Alyson Arthur MD Work Phone: [facility] Work Phone: 05-20-2022 COVID-19 booster vaccine, age 12+ yr, bivalent (PFIZER-Biometric SecurityNTTebla) Alyson Arthur MD Work Phone: [facility] 05-20-2022 pneumococcal (PCV20) vaccine, 20 valent (PREVNAR 20) Alyson Arthur MD Work Phone: [facility] 05-20-2022 pneumococcal 20-adelaide nt conjugate vaccine MALIA BECERRIL DO [facility] 10-22-2020 Covid (Pfizer) [facility] 09-17-2020 Covid (Pfizer) [facility] Comment on above: Result Comment: 2023: [id number] 11-06-2017 influenza, injectabl e, quadrivalent, contains preservative Alyson Arthur MD Work Phone: [facility] 11-06-2017 influenza, injectabl e, quadrivalent, preservative free Dr. Alyson Arthur Work Phone: [facility] 11-06-2017 influenza, seasonal, injectable [facility] 11-06-2017 influenza virus vaccine, unspecified formulation Alyson Arthur MD Work Phone: [facility] 11-11-2016 influenza virus vaccine, unspecified formulation MALIA NGOATZJENN DO [facility] 11-11-2016 influenza, injectabl e, quadrivalent, contains preservative Alyson Arthur MD Work Phone: [facility] 11-11-2016 influenza, injectabl e, quadrivalent, preservative free Dr. Alyson Arthur Work Phone: [facility] 11-11-2016 influenza, seasonal, injectable [facility] 11-11-2015 influenza virus vaccine, unspecified formulation MALIA HUBERATZJENN DO [facility] 11-11-2015 influenza, injectabl e, quadrivalent, contains preservative Alyson Arthur MD Work Phone: [facility] 11-11-2015 influenza, injectabl e, quadrivalent, preservative free Dr. Alyson Arthur Work Phone: [facility] 11-11-2015 influenza, seasonal, injectable [facility] 11-26-2013 influenza, seasonal, injectable Alyson Arthur MD Work Phone: [facility] 11-23-2013 influenza virus vaccine, unspecified formulation MALIA BECERRIL DO [facility] 11-23-2013 influenza, injectabl e, quadrivalent, preservative free Dr. Alyson Arthur Work Phone: [facility] 11-23-2013 influenza, seasonal, injectable [facility] 11-23-2013 influenza, seasonal, injectable, preservative free [facility] Work Phone: [facility] 11-30-2012 influenza virus vaccine, unspecified formulation Alyson Arthur MD Work Phone: [facility] 11-20-2012 pneumococcal polysaccharide vaccine, 23 valent Alyson Arthur MD Work Phone: [facility] 11-20-2012 Pneumococcal Vaccine [facility] Work Phone: 11-20-2012 pneumococcal vaccine , unspecified formulation [facility] 11-01-2010 pneumococcal polysaccharide vaccine, 23 valent Alyson Arthur MD Work Phone: [facility] Work Phone: Payers Date Payer Category Payer Self-pay [id number] 2023 Medicare (Managed Care) [employer] [id number] 2023 Medicare [id number] 2023 Medicare [id number] 2022 Medicare [id number] 2019 Medicaid [employer] [id number] 2019-Present [phone] [address] [place] [address] Medicaid [id number] 2019 Medicaid [id number] 2019 Unknown ANTHEM BLUE CROS S AND BLUE SHIELD ANTHEM MEDIBLUE O [id number] 2019-Present [phone] [address] [place] [address] [facility] [id number] 2019 Unknown [id number] 2015 Medicaid [id number] 2015 Unknown [id number] 1961 Unknown [id number] 1961 Unknown [id number] 1961 Unknown [id number] 1961 Unknown [id number] Medicare [id number] Private Health Insurance [facility] [facility] HMO IN [facility] [id number] Unknown [id number] Unknown [id number] Unknown [id number] Unknown [id number] Unknown [id number] Unknown [id number] Unknown [id number] Social History Date Type Detail Facility Start: 12-17-2010 End: 09-09-2024 Tobacco smoking status NHIS Smokes tobacco daily [facility] History of tobacco use Cigarette Smoker C [facility] Start: 12-17-2010 End: 06-17-2022 Cigarettes smoked current (pack per day) - Reported 0.75 [facility] Work Phone: Start: 12-17-2010 End: 09-09-2024 Tobacco use and exposure Smokeless tobacco non-user [facility] Start: 12-13-2020 End: 09-09-2024 Alcohol intake Current drinker of alcohol (finding) [facility] Start: 04-27-2020 History SDOH Alcohol Comment Rarely. 2 beers a year [facility] Start: 01-02-2019 End: 10-18-2021 Tobacco Comment less than a pack/day. [facility] Start: 1960 Sex Assigned At Not on file C [facility] Start: 03-16-2020 End: 10-22-2021 Exposure to SARS-CoV-2 (event) Not sure [facility] Start: 10-30-2020 End: 06-22-2023 Tobacco smoking status NHIS Unknown if ever smoked [facility] Start: 10-30-2020 None [facility] Start: 05-23-2020 With Family [facility] Start: 10-30-2020 Cigarettes [facility] Start: 1960 Sex Assigned At Male W [facility] Start: 06-17-2022 End: 09-28-2022 Tobacco use panel [facility] Work Phone: Start: 01-15-2012 Adult Depression Screening Assessment 1 [facility] Work Phone: Start: 04-06-2023 Tobacco smoking status Never s moked tobacco (finding) [facility] Sex Assigned At Sex [facility] Start: 11-25-2011 Alcohol Comment Rarely. [facility] Procedure Code Equipment Code Equipment Origin al Text Equipment Identifier Dates [id number], [id number], [id number], [id number], [id number], [id number], [id number], [id number], [id number], [id number] Start: 03-26-2020 End: 12-17-2024 Comment on above: TEST BLOOD SUGAR 1-2 TIMES DAILY Use one needle per d ose. 4per day. 4 Each once daily. Graft Hemashield [place] 28mm Straight Tube Woven 2 Velour Collagen 30cm - [id number] [facility] Start: 03-20-2023 Comment on above: Description: nonmeta llic [place] Thk1.65mm P tfe 4x.5in Cardiovascular Sterile - [id number] Start: 03-20-2023 Comment on above: Description: nonmeta llic [place] Thk1.65mm P tfe 4x.5in Cardiovascular Sterile - [id number] Start: 03-20-2023 Comment on above: Description: nonmeta llic Valve Aortic Epi c Plus Supra 27mm - [id number] [facility] Start: 03-20-2023 Goals Date Patient Goal Desired Activity /State Personal health goal Functional Status Date Assessment Result Facility 06-24-2023 Functional status Chair [facility] Work Phone: 05-20-2023 Functional Status [facility]-20[facility] Functional Status Room check performed [facility] 05-20-2023 Functional [facility]-20-[facility]23 Functional Status heel(s)s [facility] 05-19-2023 Functional Status Lunch Percent 100 [facility] 05-19-2023 [facility]-19[facility]23 [facility] 05-18-2023 Functional Status Nurse Safety C madison q2hrs Performed 7am-7pm [facility] 05-18-2023 [facility] 05-18-[facility]23 Functional Status [facility] 05-17-2023 [facility] 05-17-2023 Functional Status Antiembolism S tocking Off/Removed bilateral knee high [facility] [place] 05-17-2023 Functional Status [facility] 05-17-2023 Functional Status [facility] 05-17-2023 Functional Status 30 1 [facility] 05-17-2023 Functional Status [facility] 05-16-2023 Functional Status [facility] 05-16-2023 Functional Status [facility] 05-15-2023 Functional Status Pt has 2 daugh ters, son and son in law, along c who can help upon d/c. [facility] 05-14-2023 Functional Status 100 [facility] Functional Status Repositions self Ene [facility] [place] 05-12-2023 Functional Status Remains up [facility] chair [facility] 05-11-[facility] Status [facility]-10[facility] Functional Status [facility] 05-08-2023 Functional Status Skin Care Prod uct Applied Protective barrier, Skin moisturizer [facility] [place] 05-08-2023 Functional Status [facility]-07[facility] Functional Status Morning Snack Percent 1 00 [facility] [place] 05-05-2023 Functional Status [facility]-03[facility]23 Functional Status Stair Railing Utilized Bilateral [facility] [place] 05-03-2023 Functional Status [facility] 05-01-2023 Functional Status Orthotics, Dev ice Worn Per Schedule Yes [facility] [place] 05-01-2023 Functional Status Ambulation in Room [facility]ilio [facility] 05-01-2023 Functional Status [facility] 05-01-2023 Functional Status One assist [facility] 05-01-2023 Functional Status [facility] 04-30-2023 Functional Status [facility] Functional Status Sensory Deficits None A deepika [place] 04-27-2023 Functional Status Up to Chair Re paddy up in chair [facility] 04-27-2023 Functional Status Bed alert on, Room check performed [facility] 04-27-2023 Functional Status [facility] 04-27-2023 Functional Status [facility] 04-27-2023 Functional Status Positioning Re positioned back [facility] 04-27-2023 Functional Status [facility] 04-27-2023 Functional Status Two assist [facility] 04-27-2023 Functional Status bilateral knee high applied/on [facility] 04-27-2023 Functional Status [facility] 04-27-2023 Functional Status [facility] 04-26-2023 Functional Status [facility] 04-26-2023 [facility] Functional Status Pt has 2 daugh ters, son and son in law, along c who can help upon d/c. [facility] 04-26-2023 [facility] 04-26-2023 Functional Status Activity Bruce tance Two assist [facility] 04-25-2023 Functional Status [facility] 04-25-2023 Functional Status Dinner Percent 35 [facility] 04-25-2023 Functional Status [facility] 04-25-2023 [facility] 04-25-2023 Functional Status Linen Change Done [facility] 04-24-2023 Functional Status Valid [place] N/A [facility] 04-24-2023 Functional Status Refused [facility] 04-24-2023 Functional Status [facility] 04-23-2023 Functional Status [facility] 04-23-2023 Functional Status Transparent si licone dressing [facility] 04-23-2023 Functional Status [facility]ained [facility]-23-[facility] Functional Status Room check performed [facility] 04-22-2023 Functional Status [facility] 04-22-2023 Functional Status Skin Care Prev entative Intervention(s) heel(s)s elevated [facility] 04-22-2023 Functional Status Nurse Safety C madison q2hrs Performed 7am-3pm [facility] 04-22-2023 Functional Status Lunch Percent 15 Auanil n [place] 04-22-2023 Functional Status Breakfast Percent 10 Alena [facility] [place] 04-22-2023 Functional Status [facility] 04-21-2023 Functional Status [facility] 04-21-2023 Functional Status Antiembolism S tocking Off/Removed bilateral knee high [facility] 04-20-2023 Functional Status [facility] 04-20-2023 Functional Status [facility] 04-20-2023 Functional Status [facility] 04-19-2023 Functional Status [facility] 04-19-2023 Functional Status [facility] 04-19-2023 Functional Status [facility] 04-19-2023 Functional Status 4 [facility] 04-19-2023 Functional Status [facility] 04-18-2023 Functional Status [facility] 04-18-2023 Functional Status [facility] 04-18-2023 Functional Status Pt has 2 daugh ters, son and son in law, along c who can help upon d/c. [facility] 04-17-2023 Functional Status [facility] 04-17-2023 Functional Status [facility] 04-17-2023 Functional Status Activity Statu s ADL Awake, Lights dimmed, Up to bathroom, Watching TV, Other: sitting up in chair [facility] 04-16-2023 Functional Status [facility] 04-15-2023 Functional Status Foam dressing [facility] 04-15-2023 Functional Status [facility] 04-13-2023 Functional Status None [facility] 04-12-2023 Functional Status Positioning Ot her: up in chair [facility] 04-11-2023 Functional Status [facility] 04-10-2023 Functional Status 1st floor bedr oom, 1st floor bathroom [facility] 04-08-2023 Functional Status [facility] 04-07-2023 Are you deaf, or do you have serious difficulty hearing No 04/07/2023 7:13 PM Priyanka Padilla RN No [facility] 04-07-2023 Are you blind, or do you have serious difficulty seeing, even when wearing glasses No 04/07/2023 7:13 PM Priyanka Padilla RN No [facility] 04-07-2023 Do you have serious difficulty walking or climbing stairs Yes 04/07/2023 7:13 PM Priyanka Padilla RN Yes [facility] 04-07-2023 Do you have difficul ty dressing or bathing Yes 04/07/2023 7:13 PM Priyanka Padilla RN Yes [facility] 04-07-2023 Because of a physica l, mental, or emotional condition, do you have difficulty doing errands alone such as visiting a physician's office or shopping Yes 04/07/2023 7:13 PM Priyanka Padilla RN Yes [facility] 10-11-2022 Functional status Ambulates;Chair [facility] Work Phone: Mental Status Date Assessment Result Facility 06-24-2023 Cognitive function Voice/Name [facility] Work Phone: 05-20-2023 Mental Status Oriented x 4 [facility] 05-20-2023 Mental Status [facility] 05-19-2023 Mental Status [facility] 05-19-2023 Mental Status [facility] 04-27-2023 Mental Status Orientation Oriented x 4 [facility] 04-26-2023 Mental Status [facility] 04-26-2023 Mental Status [facility] 04-24-2023 Mental Status [facility] 04-22-2023 Mental Status Oriented x 4 [facility] 04-22-2023 Mental Status [facility] 04-21-2023 Mental Status [facility] 04-20-2023 Mental Status [facility] 04-07-2023 Because of a physica l, mental, or emotional condition, do you have serious difficulty concentrating, remembering, or making decisions Yes 04/07/2023 7:13 PM Priyanka Padilla RN Yes [facility] 10-11-2022 Cognitive function Voice/Name [facility] Work Phone: Clinical Notes 11-30-2012 to 12-04-2024 Carmen Leos - 10/03/2024 10:15 AM EDTTelephone Encounter - Opal Mccann RN - 09/27/2024 7:50 AM EDTTelephone Encounter - Opal Mccann RN - 09/27/2024 7:50 AM EDT Note Date & Type Note Facility 12-04-2024 Note HNO ID: [id number] Author: ?, ?, ? Service: ? Author Type: ? Type: Progress Notes Filed: 12/04/2024 10:35 Note Text: POPULATION HEALTH NAVIGATION OUTREACH Action/FYI Patient outreach for HCCs HM due; GAUDENCIO, Mascot, Flu, A1C, KED, AWV Spoke with patient. Pend labs. Will schedule wellness at visit next week. Sees OSH eye doctor but will need to schedule since not been in for awhile. Will discuss Mascot with DIGITAL ACCOUNT DIRECTOR if it needs to be since the FOB was done last year. Patient believes he had flu shot done at [facility] but it is not on the HM. Dr. Arthur, Please approve these orders for the patient to be completed prior to their appointment. Additionally, feel free to place any other orders you deem necessary. Thank you! Pended Orders ID Status Description Pended By When Reason [id number] Pended HEMOGLOBIN A1C Carmen Leos 12/04/24 1026 [id number] Pended ALBUMIN/CREATININE RATIO, URINE Carmen Leos 12/04/24 1026 Reason for Outreach Care Gap/HCC or Scheduling Wellness Visits Care Gaps due: Medicare Annual Wellness Visit Colorectal Cancer Screening Diabetic Eye Exam HBA1C KED Flu Vaccine Patient Contacted: Spoke to patient/parent/or legal guardian Patient identified by name and : Yes Care Gap/HCC/Scheduling Wellness actions taken: Patient scheduled/pended orders: HBA1C KED 12/09/2024 in [facility] with ANGELA SCHMID - 3 month follow up, hcc gaps due, hm due (40min per CH) 12/17/2024 in [facility] with AMANDA VALENTE - Overdue f/u. kh 05/06/2025 in [place] [facility] with FRANKLIN ESPINAL - 6 month follow up 09/11/[address] [facility] with CT [facility] (I-STAT) - CT LUNG SCREENING 09/11/2025 in [place] with AMAURI JO - 12 [facility] HCC related Updated Appointment Notes Navigation Signature: Carmen Granger December 04, 2024 10:16 AM [facility] 12-04-2024 Note Patient Outreach (BARBARA ADHIKARI) KIEL CATHERINE ([id number]) 1960 M Date Time Provider Department 12/04/24 ALYSON ARTHUR During your visit today, we recorded the following information about you: Carmen Leos 12/04/2024 10:35 AM Signed POPULATION HEALTH NAVIGATION OUTREACH Action/FYI Patient outreach for HCCs HM due; GAUDENCIO, Mascot, Flu, A1C, KED, AWV Spoke with patient. Pend labs. Will schedule wellness at visit next week. Sees OSH eye doctor but will need to schedule since not been in for awhile. Will discuss Mascot with DIGITAL ACCOUNT DIRECTOR if it needs to be since the FOB was done last year. Patient believes he had flu shot done at [facility] but it is not on the HM. Dr. Arthur, Please approve these orders for the patient to be completed prior to their appointment. Additionally, feel free to place any other orders you deem necessary. Thank you! Pended Orders ID Status Description Pended By When Reason [id number] Pended HEMOGLOBIN A1C Yarely Leosfer 12/04/24 1026 [id number] Pended ALBUMIN/CREATININE RATIO, URINE Brentdilan GrangerCarmen 12/04/24 1026 Reason for Outreach Care Gap/HCC or Scheduling Wellness Visits Care Gaps due: Medicare Annual Wellness Visit Colorectal Cancer Screening Diabetic Eye Exam HBA1C KED Flu Vaccine Patient Contacted: Spoke to patient/parent/or legal guardian Patient identified by name and : Yes Care Gap/HCC/Scheduling Wellness actions taken: Patient scheduled/pended orders: HBA1C KED 12/09/2024 in [facility] with ANGELA SCHMID - 3 month follow up, hcc gaps due, hm due (40min per CH) 12/17/2024 in [facility] with AMANDA VALENTE - Overdue f/u. kh 05/06/2025 in [place] [facility] with FRANKLIN ESPINAL - 6 month follow up 09/11/[address] with CT [facility] (I-STAT) - CT LUNG SCREENING 09/11/2025 in [place] with AMAURI JO - [facility] HCC related Updated Appointment Notes Navigation Signature: Carmen Kennedydilan Granger December 04, 2024 10:16 AM Allergies As [...] with long-term current use of insulin (HCC) [E11.65, Z79.4] Order(s):HEMOGLOBIN A1C [VBAAE5I] Order #: [id number] FUTURE ALBUMIN/CREATININE RATIO, URINE [SQUACR] Order #: [id number] FUTURE Prescriptions as of 12/04/2024 - XTAMPZA [...] a day. - flash glucose scanning reader ([employer] ANAHI 2 READER) DMII, insulin requiring. Testing 3-5 times q day - amLODIPine (NORVASC) 5 mg tablet Take 1 tablet by mouth once daily. - atorvastatin (LIPITOR) 10 mg tablet Take 1 tablet by mouth daily at bedtime. - budesonide-formoterol (SYMBICORT) 80-4.5 mcg/actuation inhaler Inhale 2 Puffs as instructed two times a day. - flash glucose sensor ([employer] ANAHI 2 SENSOR) kit DMII, insulin requiring. Testing 3-5 times q day - ipratropium-albuterol (DUONEB) 0.5 mg-3 mg(2.5 mg base)/3 mL nebu Inhale 3 mL as instructed four times daily. - in (more content not included)... [facility] 11-13-2024 Note HNO ID: [id number] Author: MAKENZIE OGDEN RPh Service: ? Author [...] appropriate at that time. Makenzie Ogden RPh [facility] 11-13-2024 Note Patient Outreach (PH MEWO) KIEL CATHERINE ([id number]) 1960 M Date Time Provider Department 11/13/24 MAKENZIE OGDEN MEWO During your visit today, we recorded the [...] appropriate at that time. Makenzie Ogden RPh Allergies As of Date: 11/13/2024 Noted Allergy [...] [place] Ma Problem List As Of Date 11/13/2024 Noted [...] 10/23/2021 GERD wit (more content not included)... [facility] 11-05-2024 Note HNO ID: [id number] Author: FRANKLIN ESPINAL, DO Service: ? Author Type: Physician Type: Progress Notes Filed: 11/05/2024 15:24 Note Text: [facility] [place] DEPARTMENT OF VASCULAR SURGERY OUTPATIENT VISIT DATE November 05, 2024 OUTPATIENT VISIT TYPE CONSULTATION SERVICE DATE: 11/05/2024 SERVICE TIME: 1:42 PM PRIMARY CARE PHYSICIAN: Alyson Arthur MD REFERRING PROVIDER: Angela Schmid [address] [place] [id number] Consult requested for an opinion regarding the [...] disorder (HCC) Chronic obstructive pulmonary disease (COPD) ([facility]) Coronary artery disease Degenerative disc disease sees Dr. Sellers Diabetic neuropathy ([facility]) DM (diabetes mellitus) ([facility]) HTN (hypertension) Hyperkalemia Hyperlipidemia Hypogonadism male LVH (left ventricular hypertrophy) Morbid obesity ([facility]) MANISH on CPAP Pain management Dr. [...] Disease Brother other (Myocardial infarc) Brother Fatal [place] No Ocular Disease No Family History MEDICATIONS: [...] mg/20.3 mL mattie (more content not included)... [facility] 11-04-2024 Note HNO ID: [id number] Author: ?, ?, ? Service: ? Author [...] message sent HCC related Navigation Signature: Carmen Mckeon Pss November 04, 2024 9:30 AM [facility] 11-04-2024 Note Patient Outreach (BARBARA TNBRENNAN) KIEL CATHERINE ([id number]) 1960 M Date Time Provider Department 11/04/24 ALYSON ARTHUR [...] or unnecessary to reach patient: Left message Wiramat message sent HCC related Navigation Signature: Carmen [...] bleeds Date Reviewed: 09/09/2024 Reviewed by: Amauri oJ APRN.SEASONER HAND - Fully Assessed Reason for Visit: Population [...] Severe aortic st (more content not included)... [facility] 10-03-2024 Note HNO ID: [id number] Author: ?, ?, ? Service: ? Author [...] Carmen Granger October 03, 2024 10:15 AM [facility] 10-03-2024 History of Presen t illness Narrative [...] 2024 10:15 AM documented in this encounter [facility] 10-03-2024 Note Patient Outreach (NE TNAV) KIEL CATHERINE ([id number]) 1960 M Date Time Provider Department 10/03/24 [...] Date Reviewed: 09/09/2024 Reviewed by: Amauri Jo APRN.SEASONER HAND - Fully Assessed Reason for Visit: Population [...] [I35.0] 08/10/2018 N (more content not included)... [facility] 09-27-2024 Telephone encounter Note Please call patient to schedule vascular testing prior to appt with Dr. Espinal He is scheduled 10/01/24 Thank you [facility] 09-27-2024 Miscellaneous Notes Please call patient to schedule vascular testing prior to appt with Dr. Espinal He is scheduled 10/01/24 Thank you documented in this encounter [facility] 09-13-2024 Telephone encounter Note The patient [...] Gallardo RN September 13, 2024 4:31 PM [facility] 09-13-2024 Miscellaneous Notes The patient has [...] 2024 4:31 PM documented in this encounter [facility] 09-11-2024 Telephone encounter Note LVM and scheduled overdue follow up for 12/17/24 at 3:[address] Valente in [place]. Thanks, Philippe Singletary [facility] 09-11-2024 Miscellaneous Notes LVM and scheduled overdue follow up for 12/17/24 at 3:[address] Valente in [place]. Thanks, Philippe Singletary Spouse, Shweta, contacted [facility] stating patient was received instructions from [facility] underground utility locator, Amauri Jo CNP, to follow up with a supervisor stitching department and possibly vascular specialist. Patient is wanting to continue cardiology care under Kathy Colbert CNP. Patient last saw Gemma 05/23/22. PSS notified patient that she is no longer at [place] but would send a message seeing if she is willing to see him or if he needs to establish with an MD. Please contact spouse to advise ph. [phone] . documented in this encounter [facility] 09-10-2024 Telephone encounter Note Spouse, Shweta, contacted [facility] stating patient was received instructions from [facility] underground utility locator, Amauri Jo CNP, to follow up with a supervisor stitching department and possibly vascular specialist. Patient is wanting to continue cardiology care under Kathy Clobert CNP. Patient last saw Gemma 05/23/22. PSS notified patient that she is no longer at [facility] but would send a message seeing if she is willing to see him or if he needs to establish with an MD. Please contact spouse to advise ph. [phone] . [facility] 09-09-2024 Amauri Jay APRN.CNP - 09/09/2024 12:43 PM EDT We discussed [...] nodule. This can be scheduled at the manager front office when you check out. We discussed your [...] You should have regular follow-ups with a supervisor stitching department to monitor your heart health. - If you would like, the manager front office can assist you in scheduling an appointment with a supervisor stitching department. We discussed your vascular health: - You mentioned a prior evaluation for peripheral vascular disease. If needed, the manager front office can help you reschedule with a vascular specialist. Next steps: - Schedule your follow-up CT scan for 12 months from now. - Consider scheduling appointments with a supervisor stitching department and vascular specialist for ongoing care. - Let us know if you experience any new or worsening symptoms, such as shortness of breath, chest pain, or leg swelling. Please reach out if you have any questions or concerns. documented in this encounter [facility] 09-09-2024 Note HNO ID: [id number] Author: AMAURI JO APRN.CNP Service: ? Author Type: Nurse Practitioner Type: Progress Notes Filed: 09/09/2024 12:44 Note Text: [facility] Lung Cancer Screening Annual Visit Current [...] other counseling during this visit. Amauri Jo APRN.SEASONER HAND History of Present Illness: Kiel Catherine is a 63-year-old male, with a history of smoking, presenting for an annual lung cancer screening follow-up and lung nodule follow-up. Accompanied by daughterMarissa Quintanilla was last seen in July 2022. 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 He has not had a follow-up with a supervisor stitching department since the surgery due to a canceled appointment and difficulty scheduling. He denies dyspnea, hemoptysis, wheezing, or recent chest colds or infections. He reports occasional coughing, which he attributes to his smoking habit of approximately 3/4 pack per day. He notes that his breathing is not 100%, but considers it good for someone who smokes. He has not seen a underground utility locator since his surgery. He mentions a previous [...] valve stenosis, no (more content not included)... [facility] 09-09-2024 History of Presen t illness Narrative [facility] Lung Cancer Screening Annual Visit Current [...] other counseling during this visit. Amauri Jo APRN.TODD History of Present Illness: Kiel Catherine is [...] has not had a follow-up with a supervisor stitching department since the surgery due to a canceled appointment and difficulty scheduling. He denies dyspnea, hemoptysis, wheezing, or recent chest colds or infections. He reports occasional coughing, which he attributes to his smoking habit of approximately 3/4 pack per day. He notes that his breathing is not 100%, but considers it good for someone who smokes. He has not seen a underground utility locator since his surgery. He mentions a previous [...] Bicuspid aortic valve (HCC) Bipolar 1 disorder ([facility]) Chronic obstructive pulmonary disease (COPD) ([facility]) Coronary artery disease Degenerative disc disease sees Dr. Sellers Diabetic neuropathy ([facility]) DM (diabetes mellitus) ([facility]) HTN (hypertension) Hyperkalemia Hyperlipidemia Hypogonadism male LVH (left ventricular hypertrophy) Morbid obesity ([facility]) MANISH on CPAP Pain management Dr. Sellers Family Hx: FAMILY HISTORY Problem Relation Age of Onset Diabetes Father 2011 with pneumonia other (Dementia) Father Heart Mother CABG 4. Diabetes Sister Ischemic Heart Disease Brother other (Myocardial infarc) Brother Fatal [place] No Ocular Disease No Family History Surgical [...] in 12 months. Other actionable findings: Reference: [employer]. Lung CT Screening Reporting and Data System (Lung-RADS). Available at: http://www.acr.org/Quality-Safet y/Resources/LungRADS Multi Disciplined Language Analyst: TOMMY Transcribe Date/Time: Jul 14 2022 3:39P Dictated by : FAITH DANIELS MD This examination was interpreted and the report reviewed and electronically signed by: FAITH DANIELS MD on Jul 14 2022 4:34PM EST Results-Findings * * *Final Report* * * DATE OF EXAM: Jul 14 2022 2:03PM [facility] [id number] - CT LUNG SCREEN WO IVCON / PROCEDURE REASON: multiple diagnoses * * [...] without contrast. MQ: CTLCS_6 Patient characteristics: * Fzgs-[id number]: 1960; Age at exam: 61 years * Gender: Male * Lung Disease: Asymptomatic (no signs or symptoms of lung disease) * Number of Pack Years: 45 * Current smoker (=0) or Number of Years since Quit: 0 * Ordering provider and NPI: AMAURI JO [id number] * Interpreting radiologist and NPI: Joaquina [id number] Exam acquisition parameters: * Exam Date: 07/14/2022 2:03 PM * Site: [facility] * * CT System Home Fire Alarm Installer: Siemens * CT System Model: Sensation * [...] Left Anterior Descending Mild; Right Coronary None Power Cutting Machine Operator (topogram) images: No additional findings. No results found for this or any previous visit from the past 720 days. Pulmonary Function Testing: No textual results found for the specified procedure(s). Recording using ambient PopSeal software for draft documentation of the visit was discussed with the patient/authorized c s s representative; all questions welcomed and answered. Patient/authorized c s s representative agreed to proceed Some of this note was generated using AI assistance and dictation software, which may result in errors in word translation, typographical mistakes, or grammatical inconsistencies that may not have been identified before finalization. Please consider this when reviewing the note. documented in this encounter [facility] 09-09-2024 History of Presen t illness [...] PATIENT PRESENTS WITH AN IMPLANTABLE OR ATTACHED STORE TEAM LEADER: No RADIOLOGY DEPARTMENT: CT; Exam(s) Completed: Lung Screening PERIPHERAL IV DATA: Not applicable SIGNED BY: RT eFlix(R) September 09, 2024 3:21 PM documented in this encounter [facility] 09-09-2024 Note HNO ID: [id number] Author: SANTI SEPULVEDA RT(R) Service: ? Author Type: Engineering Drafter Type: Progress Notes Filed: 09/09/2024 15:22 Note [...] PATIENT PRESENTS WITH AN IMPLANTABLE OR ATTACHED STORE TEAM LEADER: No RADIOLOGY DEPARTMENT: CT; Exam(s) Completed: Lung Screening PERIPHERAL IV DATA: Not applicable SIGNED BY: RT Felix(R) September 09, 2024 3:21 PM [facility] 09-03-2024 Note HNO ID: [id number] Author: ?, ?, ? Service: ? Author [...] or unnecessary to reach patient: Left message Influxhart message sent HCC related Updated appointment notes Navigation Signature: Carmen Granger September 03, 2024 10:25 AM [facility] 09-03-2024 History of Presen t illness Narrative [...] 2024 10:25 AM documented in this encounter [facility] 09-03-2024 Note Patient Outreach (BARBARA ADHIKARI) FLORINKIEL Godoy ([id number]) 1960 M Date Time Provider Department 09/03/24 [...] or unnecessary to reach patient: Left message Influxhart message sent HCC related Updated appointment notes Navigation Signature: Carmen Granger September 03, 2024 10:25 AM Allergies As [...] aortic stenosis [I (more content not included)... [facility] 08-22-2024 Telephone encounter Note Prescription Refill Information [...] units, > 351 10 units Sofia Bacaing [facility] August 22, 2024 3:45 PM [facility] 08-22-2024 Miscellaneous Notes Prescription Refill Information [...] units, > 351 10 units Sofia Bacaing [facility] August 22, 2024 3:45 PM documented in this encounter [facility] 08-19-2024 Telephone encounter Note The patient [...] Cohn LPN August 19, 2024 11:22 AM [facility] 08-19-2024 Miscellaneous Notes The patient has [...] tablets by mouth two times a day. Feyl Cohn LPN August 19, 2024 11:22 AM documented in this encounter [facility] 08-13-2024 Telephone encounter Note Pt notified of results/provider instructions. He verbalized understanding. Bebeto Haro LPN [facility] 08-13-2024 Telephone encounter Note Pt notified. He verbalized understanding. Bebeto Haro LPN [facility] 08-13-2024 Miscellaneous Notes Pt notified of results/provider instructions. He verbalized understanding. Bebeto Haro LPN LM to return call to office. Bebeot Haro LPN Can please let patient know that I received his labs. His A1C improved to 8.1 (previously 10.3). It is still higher than we like. Lets increase his lantus to 22 units in the evening. Please send me in some sugars next week so we can see if we need to further adjust. Everything else looks okay. Angela Schmid APRN.TODD documented in this encounter [facility] 08-13-2024 Miscellaneous Notes Pt notified. He verbalized understanding. Bebeto Haro LPN That is fine. New script sent. Can please let patient know. Angela Schmid APRN.TODD Covermymeds PA rec'd for ciprofloxacin-dexAMETHasone (CIPRODEX) 0.3-0.1 % otic suspension Called the pharmacy and they report that this is not formulary. They report pts insurance would covered cortisporin otic suspension. Can this be changed to formulary? documented in this encounter [facility] 08-13-2024 Telephone encounter Note That is fine. New script sent. Can please let patient know. Angela Schmid APRN.TODD [facility] 08-13-2024 Telephone encounter Note Covermymeds PA rec'd for ciprofloxacin-dexAMETHasone (CIPRODEX) 0.3-0.1 % otic suspension Called the pharmacy and they report that this is not formulary. They report pts insurance would covered cortisporin otic suspension. Can this be changed to formulary? [facility] 08-13-2024 Telephone encounter Note LM to return call to office. Bebeto Haro LPN [facility] 08-12-2024 Telephone encounter Note Can please let patient know that I received his labs. His A1C improved to 8.1 (previously 10.3). It is still higher than we like. Lets increase his lantus to 22 units in the evening. Please send me in some sugars next week so we can see if we need to further adjust. Everything else looks okay. Angela Schmid APRN.SEASONER HAND [facility] 08-07-2024 Note HNO ID: [id number] Author: ANGELA SCHMID APRN.SEASONER HAND Service: ? Author Type: Nurse Practitioner Type: [...] feet. 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 Ear Discomfort: - Reports feeling of swelling [...] Diagnosis Date Acute ischemic left MCA stroke ([facility]) 03/22/2023 Anxiety Aortic valve stenosis, nonrheumatic Atrial septal defect and mitral stenosis ([facility]) Bicuspid aortic valve ([facility]) Bipolar 1 disorder ([facility]) Chronic obstructive pulmonary disease (COPD) ([facility]) Coronary artery disease Degenerative disc disease sees Dr. Sellers Diabetic neuropathy ([facility]) DM (diabetes mellitus) ([facility]) HTN (hypertension) Hyperkalemia Hyperlipidemia Hypogonadism male LVH (left ventricular hypertrophy) Morbid obesity ([facility]) MANISH on CPAP Pain management Dr. [...] for 180 days. flash glucose scanning reader (TappitSTYLE ANAHI 2 READER) DMII, insulin requiring. Testing [...] directed with meals (more content not included)... [facility] 08-07-2024 History of Presen t illness Narrative [...] feet. 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 Ear Discomfort: - Reports feeling of swelling [...] for 180 days. flash glucose scanning reader (TappitSTYLE ANAHI 2 READER) DMII, insulin requiring. Testing [...] Disease Brother other (Myocardial infarc) Brother Fatal [place] No Ocular Disease No Family History Social [...] blockages. - Referral to vascular surgery (Dr. sEpinal) for further evaluation and management. 3. Screening [...] as needed for worsening/no improvement. Angela Schmid APRN.SEASONER HAND Recording using [employer] software for draft documentation of the visit was discussed with the patient/authorized c s s representative; all questions welcomed and answered. Patient/authorized c s s representative agreed to proceed Ambulatory Ear Lavage Pre-treatment: No pre-treatment Treatment: Left ear Equipment and Irrigation solution and Volume used: Single use syringe with single use irrigation tip Water Total Irrigation Volume: 200ml Return flow appearance: Clear Other large chunk of debri Patient tolerated procedure: yes Tympanic membrane assessment: Tympanic membrane assessed by LIP pre and post procedure documented in this encounter [facility] 08-07-2024 Note HNO ID: [id number] Author: BEBETO HARO LPN Service: ? Author [...] assessed by LIP pre and post procedure [facility] 08-07-2024 Instructions Angela Schmid APRN.SEASONER HAND - 08/07/2024 11:25 AM EDT Start the ear drops. Get the labwork. Schedule ultrasound of the neck and legs. Schedule w/ Dr. Espinal. (Vascular). Recheck in 3 months. documented in this encounter [facility] 08-02-2024 Note HNO ID: [id number] Author: ?, ?, ? Service: ? Author [...] Carmen Granger August 02, 2024 9:23 AM [facility] 08-02-2024 History of Presen t illness Narrative [...] 2024 9:23 AM documented in this encounter [facility] 08-02-2024 Note Patient Outreach (NE TNAV) KIEL CATHERINE ([id number]) 1960 Date Time Provider Department 08/02/24 ALYSON ARTHUR [...] or unnecessary to reach patient: Left message Influxhart message sent HCC related Updated appointment notes Navigation Signature: Carmen Granger August 02, 2024 9:23 AM Allergies As of Date: 08/02/2024 Noted Allergy Reaction IODINATED CONTRAST MEDIA 03/16/2023 8 - GI Upset 14 - Other: See Comments Comments: Hypotension, temporary SOB LISINOPRIL 12/01/2017 14 - Other: See Comments Comments: Hyperkalemia PENICILLINS 10/29/2010 2 - Rash FLONASE (FLUTICASONE PROPIONATE) 10/18/2021 14 - Other: See Comments Comments: Nose bleeds Date Reviewed: 02/08/2024 Reviewed by: Margi Riddle APRN.SEASONER HAND - Fully Assessed Reason for Visit: Population [...] LVH (left ventricular (more content not included)... [facility] 07-03-2024 Note HNO ID: [id number] Author: ?, ?, ? Service: ? Author [...] Carmen Granger July 03, 2024 10:35 AM [facility] 07-03-2024 Note Patient Outreach (NE TNAV) KIEL CATHERINE ([id number]) 1960 Date Time Provider Department 07/03/24 ALYSON ARTHUR [...] Date Reviewed: 02/08/2024 Reviewed by: Margi Riddle APRN.SEASONER HAND - Fully Assessed Reason for Visit: Population Health Navigation Outreach [3910] Cmt: Allenlily Gutierres [place] Prescriptions as of 07/03/2024 - traZODone (DESYREL) [...] 180 days. - flash glucose scanning reader (TappitSTYLE ANAHI 2 READER) DMII, insulin requiring. Testing [...] (left ventricular h (more content not included)... [facility] 06-21-2024 Telephone encounter Note The following approved [...] 90 days. Authorizing Provider: MARGI RIDDLE APRN.CNP [facility] 06-21-2024 Miscellaneous Notes The following approved [...] Janki Vale RN documented in this encounter [facility] 06-21-2024 Telephone encounter Note The patient [...] daily for 90 days. Janki Vale RN [facility] 06-21-2024 Radiology Diagnostic study note [facility] Imaging Services [address] [place], [place] [id number] Knee 1 or 2 Views MR#: [id number] Acct: [id number] Name: KIEL CATHERINE Rep #: [id number] : 1960 M 63 From: Stefano Quintanilla MD PCP: Dr. Alyson Arthur MD Status: MILI CONDE Study:Knee 1 or 2 Views Date of Exam: Exam# [id number] Ordering Dr: Lily Sellers MD PROCEDURE: KNEE [...] Sellers MD; Dr. Alyson Arthur MD ~ Multi Disciplined Language Analyst: Signed [facility] 06-21-2024 Radiology Diagnostic study note [facility] Imaging Services [address] [place], [place] [id number] Knee 1 or 2 Views MR#: [id number] Acct: [id number] Name: KIEL CATHERINE Rep #: [id number] : 1960 M 63 From: Stefano Quintanilla MD PCP: Dr. Alyson Arthur MD Status: REG C LI Study:Knee 1 or 2 Views Date of Exam: Exam# [id number] Ordering Dr: Lily Sellers MD PROCEDURE: KNEE [...] Sellers MD; Dr. Alyson Arthur MD ~ Multi Disciplined Language Analyst: Signed [facility] 06-03-2024 Note HNO ID: [id number] Author: ?, ?, ? Service: ? Author [...] Carmen Granger June 03, 2024 1:24 PM [facility] 06-03-2024 History of Presen t illness Narrative POPULATION HEALTH NAVIGATION OUTREACH Action/I Patient outreach for HCC gaps; A1C,KED, DIABETIC [...] 2024 1:24 PM documented in this encounter [facility] 06-03-2024 Note Patient Outreach (NE TNAV) KIEL CATHERINE ([id number]) 1960 M Date Time Provider Department 06/03/24 [...] navigator back HCC related Navigation Signature: Carmen Mckeon Pss June 03, 2024 1:24 PM Allergies As of Date: 06/03/2024 Noted Allergy Reaction IODINATED CONTRAST MEDIA 03/16/2023 8 - GI Upset 14 - Other: See Comments Comments: Hypotension, temporary SOB LISINOPRIL 12/01/2017 14 - Other: See Comments Comments: Hyperkalemia PENICILLINS 10/29/2010 2 - Rash FLONASE (FLUTICASONE PROPIONATE) 10/18/2021 14 - Other: See Comments Comments: Nose bleeds Date Reviewed: 02/08/2024 Reviewed by: Margi Riddle APRN.SEASONER HAND - Fully Assessed Reason for Visit: Population [...] 90 days. - flash glucose scanning reader (FREESTYLE [...] [place] Problem List As Of Date 06/03/2024 Noted Resolved Restrictive lung disease [J98.4] 11/12/2010 MANISH on CPAP [G47.33] 11/09/2012 Bicuspid aortic valve [Q23.81] 11/09/2012 Controlled type 2 diabetes mellitus with diabet*11/09/2012 Hyperlipidemia [E78.5] 11/09/2012 Hypertension [I10] 11/09/2012 DDD (d (more content not included)... [facility] 05-21-2024 History of Presen t illness Narrative [...] visit types. Thank you, Marline Serrano PharmD, BCACP documented in this encounter [facility] 05-21-2024 Note HNO ID: [id number] Author: MARLINE SERRANO RPh Service: ? Author [...] visit types. Thank you, Marline Serrano PharmD, BCACP [facility] 05-21-2024 Note Patient Outreach (PM STOW) KIEL CATHERINE ([id number]) 1960 M Date Time Provider Department 05/21/24 MARLINE SERRANO [facility] During your visit today, we recorded the following information about you: Marline Serrano [facility] 05/21/2024 10:56 AM Signed Primary Care Pharmacy Panel Management This patient has been identified through Specialty Integration/Value-Based Operations Diabetes Registry Review by the primary care pharmacy team. Please contact patient and schedule a pharmacy in-person, phone, or virtual visit for diabetes management. Please use New Pharmacy, New Pharmacy Phone call, or Video Primary New visit types. Thank you, Marline Serrano, PharmD, BCACP Allergies As of Date: 05/21/2024 Noted Allergy Reaction IODINATED CONTRAST MEDIA 03/16/2023 8 - GI Upset 14 - Other: See Comments Comments: Hypotension, temporary SOB LISINOPRIL 12/01/2017 14 - Other: See Comments Comments: Hyperkalemia PENICILLINS 10/29/2010 2 - Rash FLONASE (FLUTICASONE PROPIONATE) 10/18/2021 14 - Other: See Comments Comments: Nose bleeds Date Reviewed: 02/08/2024 Reviewed by: Margi Riddle APRN.SEASONER HAND - Fully Assessed Reason for Visit: Care Coordination [0591] Cmt: Referred to Pharmacy for Diabetes Management Primary Visit Diagnosis:Type 2 diabetes mellitus with hyperglycemia, with long-term current use of insulin ([facility]) [E11.65, Z79.4] Order(s):CONSULT TO PHARMACY [214967] Order #: [id number]: 1 Prescriptions as of 05/21/2024 - ammonium [...] 90 days. - flash glucose scanning reader (FREESTYLE [...] [place] Problem List As Of Date 05/21/2024 Noted Resolved Restrictive lung disease [J98.4] 11/12/2010 MANISH on CPAP [G47.33] 11/09/2012 Bicuspid aortic valve [Q23.81] 11/09/2012 Controlled type 2 diabetes mellitus with diabet*11/09/2012 Hyperlipidemia [E78.5] 11/09/2012 Hypertension [I10] 10/15 (more content not included)... [facility] 05-14-2024 Telephone encounter Note Prescription Refill Information [...] Mel Land May 14, 2024 4:29 PM [facility] 05-14-2024 Miscellaneous Notes Prescription Refill Information [...] 2024 4:29 PM documented in this encounter [facility] 05-03-2024 Note HNO ID: [id number] Author: ?, ?, ? Service: ? Author [...] Contacted: Unable or unnecessary to reach patient: StorPool message sent HCC related Navigation Signature: Carmen Mckeon Pss May 03, 2024 8:34 AM [facility] 05-03-2024 History of Presen t illness Narrative [...] Contacted: Unable or unnecessary to reach patient: StorPool message sent HCC related Navigation Signature: Carmen Granger May 03, 2024 8:34 AM documented in this encounter [facility] 05-03-2024 Note Patient Outreach (BARBARA TNBRENNAN) KIEL CATHERINE ([id number]) 1960 M Date Time Provider Department 05/03/24 [...] Contacted: Unable or unnecessary to reach patient: StorPool message sent HCC related Navigation Signature: Carmen Granger May 03, 2024 8:34 AM Allergies As of Date: 05/03/2024 Noted Allergy Reaction IODINATED CONTRAST MEDIA 03/16/2023 8 - GI Upset 14 - Other: See Comments Comments: Hypotension, temporary SOB LISINOPRIL 12/01/2017 14 - Other: See Comments Comments: Hyperkalemia PENICILLINS 10/29/2010 2 - Rash FLONASE (FLUTICASONE PROPIONATE) 10/18/2021 14 - Other: See Comments Comments: Nose bleeds Date Reviewed: 02/08/2024 Reviewed by: Margi Riddle APRN.SEASONER HAND - Fully Assessed Reason for Visit: Population Health Navigation Outreach [3910] Cmt: Eladio yJothi Joaquin Prescriptions as of 05/03/2024 - apixaban (ELIQUIS) [...] 90 days. - flash glucose scanning reader (TappitSTYLE ANAHI 2 READER) DMII, insulin requiring. Testing [...] DDD (degenerative d (more content not included)... [facility] 05-01-2024 Telephone encounter Note The patient has [...] Gallardo RN May 01, 2024 9:57 AM [facility] 05-01-2024 Miscellaneous Notes The patient has [...] 2024 9:57 AM documented in this encounter [facility] 04-03-2024 Note HNO ID: [id number] Author: DENNYS VÁSQUEZ MA Service: ? Author Type: Licensed Massage Practitioner Type: Progress Notes Filed: 04/03/2024 14:26 Note Text: POPULATION HEALTH NAVIGATION OUTREACH Action/FYI msg to [...] to reach patient: Unable to leave message MyChart message sent HCC related Navigation Signature: Dennys Vásquez MA April 03, 2024 2:23 PM [facility] 04-03-2024 History of Presen t illness Narrative [...] to reach patient: Unable to leave message StorPool message sent HCC related Navigation Signature: Dennys Vásquez MA April 03, 2024 2:23 PM documented in this encounter [facility] 04-03-2024 Note Patient Outreach (NE TNAV) KIEL CATHERINE ([id number]) 1960 M Date Time Provider Department 04/03/24 DENNYS VÁSQUEZ During your visit today, we recorded the following information about you: Dennys Vásquez MA 04/03/2024 2:26 PM Signed POPULATION HEALTH NAVIGATION OUTREACH Action/I msg to [...] to reach patient: Unable to leave message StorPool message sent HCC related Navigation Signature: Dennys [...] Date Reviewed: 02/08/2024 Reviewed by: Margi Riddle APRN.SEASONER HAND - Fully Assessed Reason for Visit: Population [...] 90 days. - flash glucose scanning reader (TappitSTYLE ANAHI 2 READER) DMII, insulin requiring. Testing [...] with diabet*11/09/2012 Hype (more content not included)... [facility] 03-28-2024 Telephone encounter Note The following approved [...] once daily for 90 days. Margi Riddle APRN.SEASONER HAND [facility] 03-28-2024 Miscellaneous Notes The following approved [...] Janki Vale RN documented in this encounter [facility] 03-28-2024 Telephone encounter Note The patient [...] daily for 90 days. Janki Vale RN [facility] 03-04-2024 Telephone encounter Note Kiel is calling Alyson Arthur MD today with concern regarding Medication Request Calling in today states that he needs a new one of the following sent to [facility] in [place]. flash glucose scanning reader (FREESTYLE ANAHI 2 READER) Patient has been identified by name and birthdate. Duration of symptoms: N/A Person calling: spouse: Gissell Call patient at: at home and on cell [phone] (home) [phone] (cell) Was an appointment scheduled: No Closing statement: Results or non-symptom based questions: Thank you for calling [facility], your call will be returned within the next business day. Rae Granger [facility] 03-04-2024 Miscellaneous Notes Kiel is calling Alyson Arthur MD today with concern regarding Medication Request Calling in today states that he needs a new one of the following sent to [facility] in [place]. flash glucose scanning reader (FREESTYLE ANAHI 2 READER) Patient has been identified by name and birthdate. Duration of symptoms: N/A Person calling: spouse: Gissell Call patient at: at home and on cell [phone] (home) [phone] (cell) Was an appointment scheduled: No Closing statement: Results or non-symptom based questions: Thank you for calling [facility], your call will be returned within the next business day. Rae Perez Pss documented in this encounter [facility] 03-04-2024 Note HNO ID: [id number] Author: ESTELLE URIARTE MA Service: ? Author Type: Licensed Massage Practitioner Type: Progress Notes Filed: 03/04/2024 09:34 Note Text: POPULATION HEALTH NAVIGATION OUTREACH Action/FYI Care gaps due: AWV 6m fu July 2024 Mascot (FOBT ordered) DIABETIC RETINAL EXAM Spoke to [...] Uriarte MA March 04, 2024 9:33 AM [facility] 03-04-2024 History of Presen t illness Narrative POPULATION HEALTH NAVIGATION OUTREACH Action/FYI Care gaps due: AWV 6m fu July 2024 Mascot (FOBT ordered) DIABETIC RETINAL EXAM Spoke to [...] 2024 9:33 AM documented in this encounter [facility] 03-04-2024 Note Patient Outreach (NE TNAV) KIEL CATHERINE ([id number]) 1960 M Date Time Provider Department 03/04/24 ESTELLE URIARTE NETNAV During your visit today, we recorded the following information about you: Estelle Uriarte MA 03/04/2024 9:34 AM Signed POPULATION HEALTH NAVIGATION OUTREACH Action/FYI Care gaps due: AWV 6m fu July 2024 Mascot (FOBT ordered) DIABETIC RETINAL EXAM Spoke to [...] Uriarte MA March 04, 2024 9:33 AM Allergies As of Date: 03/04/2024 Noted Allergy Reaction IODINATED CONTRAST MEDIA 03/16/2023 8 - GI Upset 14 - Other: See Comments Comments: Hypotension, temporary SOB LISINOPRIL 12/01/2017 14 - Other: See Comments Comments: Hyperkalemia PENICILLINS 10/29/2010 2 - Rash FLONASE (FLUTICASONE PROPIONATE) 10/18/2021 14 - Other: See Comments Comments: Nose bleeds Date Reviewed: 02/08/2024 Reviewed by: Margi Riddle APRN.SEASONER HAND - Fully Assessed Reason for Visit: Population [...] with diabet*11/09/2012 Hyperlipidemia (more content not included)... [facility] 02-16-2024 Telephone encounter Note Faxed as requested. [facility] 02-16-2024 Miscellaneous Notes Faxed as requested. [facility] sends fax requesting order for Quad cane. After printed fax face to face chart notes and order ATTN: Anastacio Shafer [phone]. documented in this encounter [facility] 02-15-2024 Telephone encounter Note Done [facility] 02-15-2024 Telephone encounter Note [facility] sends fax requesting order for Quad cane. After printed fax face to face chart notes and order ATTN: Anastacio Shafer [phone]. [facility] 02-08-2024 Instructions Margi Riddle APRN.CNP - 02/08/2024 12:10 PM EST 1) covid vaccine 2) flu vaccine 3) labs today 4) Stop furosemide, continue bumetanide (Bumex) 5) Increase Lantus (glargine) to 20 units daily 6) Cipro 2 x day for 10 days 7) Stool card to check for blood 8) follow up in 6 months- may be virtual documented in this encounter [facility] 02-08-2024 Note HNO ID: [id number] Author: MARGI RIDDLE APRN.CNP Service: ? Author [...] Staff Physician (Cardiology) Angela Schmid APRN.CNP as Electric Truck Operator (Family Medicine) Margi Riddle APRN.CNP as Electric Truck Operator (Family Medicine) Concerns today: Getting up frequently [...] of 1.0. He was recently admitted to [facility] for a blister on the anterior right lower extremity over the tibia which had popped causing an open wound, and TTE done at the [facility] - 03/22/2023 (B priority) Comment: Mild Cad (C priority) Comment: 11/29/22 C: The LMT is normal. The LAD has mild diffuse disease. The Circumflex has mild diffuse disease. The RCA has mild diffuse disease. Dilatation of Aorta ([facility]) (C priority) Comment: 03/16/23 TTE: The visualized aorta is dilated with a maximal dimension of 4.4 cm. Postoperative Pain (D priority) Comment: see coord note hx chronic back pain Hypernatremia - 03/25/2023 (F priority) Hypervolemia - 03/21/2023 (F priority) On Tube Feeding Diet - 04/06/2023 Slurred Speech - 04/05/2023 Right Hemiparesis ([facility]) - 04/05/2023 Cognitive Communication Deficit - 04/04/2023 Pressure Injury of Coccygeal Region, Unstageable ([facility]) - 04/03/2023 Comment: Primary Sleep Apnea of [place] - 03/28/2023 Nicotine use disorder, F17.2 - 03/27/2023 Comment: Dysarthria - 03/27/2023 Comment: Impaired Gait and Mobility - 03/24/2023 Right Arm Weakness - 03/24/2023 Coordination Impairment - 03/24/2023 Comment: Alteration in Self-Care Ability - 03/24/2023 Comment: Insulin Dose Changed ([facility]) - 03/24/2023 Type 2 Diabetes Mellitus With Hyperglycemia, With Long-Term Current Use of Insulin ([facility]) - 03/24/2023 Comment: Hemoglobin A1C (%) Date Value 02/27/2023 6.5 06/24/2020 9.6 Dysphagia - 03/22/2023 Comment: MBS on 03/28/23 Followed by Speech therapy: see coord note Arterial Ischemic Stroke, Mca (Middle Cerebral Artery), Left, Acute ([facility]) - 03/22/2023 Comment: see coord note Open Wound of Left Great Toe - 03/22/2023 Comment: scab unknown etiology Alteration in Skin Integrity Due to Moisture - 03/22/2023 Comment: lower abdominal skin fold, right breast skin fold Skin Tear of Upper Extremity - 03/22/2023 Comment: left ear Pressure Injury of Sacral Region, Unstageable ([facility]) - 03/22/2023 Comment: coccyx Discharge Planning Issues - 03/16/2023 Comment: Patient is a 62 year old male from [place], [place]. PMANDR following for acute rehab needs Chronic Diastolic Heart Failure ([facility]) - 03/16/2023 Comment: Grade I DD on preop echo History of Disease - 02/21/2023 Class 3 Severe Obesity With Body Mass Index (Bmi) of 50.0 to 59.9 in Adult ([facility]) - 02/21/2023 Comment: Right Flank Pain - 02/21/2023 Peripheral Vascula (more content not included)... [facility] 02-08-2024 History of Presen t illness Narrative [...] Staff Physician (Cardiology) Angela Schmid APRN.CNP as Electric Truck Operator (Family Medicine) Margi Riddle APRN.CNP as Electric Truck Operator (Family Medicine) Concerns today: Getting up frequently [...] of 1.0. He was recently admitted to [facility] for a blister on the anterior right lower extremity over the tibia which had popped causing an open wound, and TTE done at the [facility] - 03/22/2023 (B priority) Comment: Mild Cad (C priority) Comment: 11/29/22 [facility]: The LMT is normal. The LAD has [...] Ability - 03/24/2023 Comment: Insulin Dose Changed ([facility]) - 03/24/2023 Type 2 Diabetes Mellitus With Hyperglycemia, With Long-Term Current Use of Insulin ([facility]) - 03/24/2023 Comment: Hemoglobin A1C (%) Date Value 02/27/2023 6.5 06/24/2020 9.6 Dysphagia - 03/22/2023 Comment: MBS on 03/28/23 Followed by Speech therapy: see coord note Arterial Ischemic Stroke, Mca (Middle Cerebral Artery), Left, Acute ([facility]) - 03/22/2023 Comment: see coord note Open Wound of Left Great Toe - 03/22/2023 Comment: scab unknown etiology Alteration in Skin Integrity Due to Moisture - 03/22/2023 Comment: lower abdominal skin fold, right breast skin fold Skin Tear of Upper Extremity - 03/22/2023 Comment: left ear Pressure Injury of Sacral Region, Unstageable ([facility]) - 03/22/2023 Comment: coccyx Discharge Planning Issues - 03/16/2023 Comment: Patient is a 62 year old male from [place], [place]. PM&R following for acute rehab needs Chronic Diastolic Heart Failure ([facility]) - 03/16/2023 Comment: Grade I DD on preop echo History of Disease - 02/21/2023 Class 3 Severe Obesity With Body Mass Index (Bmi) of 50.0 to 59.9 in Adult ([facility]) - 02/21/2023 Comment: Right Flank Pain - 02/21/2023 Peripheral Vascular Disease ([facility]) - 12/06/2022 Comment: 12/22/22 PVR: [...] Normal at rest. Chronic Obstructive Pulmonary Disease ([facility]) - 10/11/2022 Comment: 11-17-2022 PFTs [...] Hypogonadism Male - 01/04/2013 Chronic Bronchitis, Simple ([facility]) - 12/07/2012 Lvh (Left Ventricular [...] Neuropathy, With Long-Term Current Use of Insulin ([facility]) - 11/09/2012 Comment: Hyperlipidemia - [...] Disease), Lumbar - 11/09/2012 Bipolar 1 Disorder ([facility]) - 11/09/2012 Comment: No home medications Morbid Obesity With Bmi of 50.0-59.9, Adult ([facility]) - 11/09/2012 Comment: History: Postop [...] Diagnosis Date Acute ischemic left MCA stroke ([facility]) 03/22/2023 Anxiety Aortic valve stenosis, nonrheumatic Atrial septal defect and mitral stenosis Bicuspid aortic valve Bipolar 1 disorder ([facility]) Chronic obstructive pulmonary disease (COPD) ([facility]) Coronary artery disease Degenerative disc disease sees Dr. Sellers Diabetic neuropathy ([facility]) DM (diabetes mellitus) ([facility]) HTN (hypertension) Hyperkalemia Hyperlipidemia Hypogonadism male LVH (left ventricular hypertrophy) Morbid obesity ([facility]) MANISH on CPAP Pain management Dr. [...] [id number], TRIVALENT (AFLURIA, FLULAVAL, FLUVIRIN, FLUZONE) - [facility] COVID-19 VACCINE AGE 12+ YR ([place]) 3. Screening for depression - ICD9: V79.0, ICD10: Z13.31 Stable - DEPRESSION SCREENING 4. Encounter for screening examination for other mental health and behavioral disorders - ICD9: V79.8, ICD10: Z13.39 Stable - ANXIETY SCREENING 5. Chronic obstructive pulmonary disease, unspecified COPD type (HCC) - ICD9: 496, ICD10: J44.9 Stable - [id number] - COMPLETE BLOOD COUNT AND DIFFERENTIAL - [...] neuropathy, with long-term current use of insulin ([facility]) - ICD9: 250.60, 357.2, V58.67, ICD10: [...] complication, without long-term current use of insulin ([facility]) - ICD9: 250.00, ICD10: E11.9 - Uncontrolled [...] Plans: 6 months documented in this encounter [facility] 01-29-2024 Telephone encounter Note Called and spoke with both pt and his Shweta. Shweta states they need to reschedule both of their appts. Edwar from tomorrow to 02/07. [facility] 01-29-2024 Miscellaneous Notes Called and spoke [...] completed. Please advise documented in this encounter [facility] 01-29-2024 Telephone encounter Note No. They need to F2F, both need labs done.? [facility] 01-29-2024 Telephone encounter Note Patient Shweta [...] is going to be completed. Please advise [facility] 01-09-2024 Telephone encounter Note Kenzie with [facility] calls to request rx for pt. Kenzie [...] on current med list. Yoly Murray LPN [facility] 01-09-2024 Miscellaneous Notes Kenzie with [facility] [...] Yoly Murray LPN documented in this encounter [facility] 01-01-2024 Telephone encounter Note Completed form faxed [facility] 01-01-2024 Miscellaneous Notes Completed form faxed Yes form is in office. [facility] calling to let provider know they faxed CMN for incontinence supplies. Asking if form received? Tia Arenas RN documented in this encounter [facility] 12-28-2023 Telephone encounter Note An order is requested for a hospital bed from [facility]. Patient would need to schedule and keep an appointment to discuss in order to have the correct documentation. [facility] 12-28-2023 Miscellaneous Notes An order is requested for a hospital bed from [facility]. Patient would need to schedule and keep an appointment to discuss in order to have the correct documentation. documented in this encounter [facility] 12-28-2023 Telephone encounter Note Yes form is in office. [facility] 12-28-2023 Telephone encounter Note [facility] calling to let provider know they faxed CMN for incontinence supplies. Asking if form received? Tia Arenas RN [facility] 12-22-2023 Telephone encounter Note Sending RX for the 5 th time. Even printed and faxed. ??? [facility] 12-22-2023 Miscellaneous Notes Sending RX for [...] rewrite this, it never printed Order re-written. [facility] calling asking to have Novalog rx more clarification. Asking if the patient is only using the 4 units three times daily or in addition to sliding scale amount. Or just 4 units three times daily. Needing maximum amount of Novalog patient can use in a day on the rx. Please advise Done and resent Aria with [facility] called and they received the prescription for Novolog flexpen. Aria reports they need more information. Need to have a per day and max amount so they can fill and bill. July Perez LPN documented in this encounter [facility] 12-22-2023 Telephone encounter Note Patient's calls and states that pharmacy has not received prescription yet. Looks like it was printed previously. Can we resend prescription to pharmacy? Please review and advise, Apple Allen RN [facility] 12-21-2023 Telephone encounter Note sliding scale as directed with meals Blood sugar 0-150, no coverage; 151- 200, 2 units; 201- 250 4 units; 251- 300 6 units 301- 350 8 units, > 351 10 units [facility] 12-21-2023 Telephone encounter Note Can you rewrite this, it never printed [facility] 12-19-2023 Telephone encounter Note Order re-written. [facility] 12-19-2023 Telephone encounter Note [facility] calling asking to have Novalog rx more clarification. Asking if the patient is only using the 4 units three times daily or in addition to sliding scale amount. Or just 4 units three times daily. Needing maximum amount of Novalog patient can use in a day on the rx. Please advise [facility] 12-19-2023 Telephone encounter Note Done and resent [facility] 12-19-2023 Telephone encounter Note Aria with [facility] called and they received the prescription for Novolog flexpen. [facility] reports they need more information. Need to have a per day and max amount so they can fill and bill. July Perez LPN [facility] 12-18-2023 Telephone encounter Note Patient's made aware of new prescriptions sent to pharmacy [facility] 12-18-2023 Miscellaneous Notes Patient's made aware of new prescriptions sent to pharmacy Please let pt. Know that I ordered Lantus pens and novolog pens for his sliding scale. Note that insurance may not cover Lantus pens because it is once a day and that pens are for convenience with being out and about. Lorie from [facility] returned call. States she only sees patient on monthly basis and last visit was 11/15. She states whatever her med list for patient is isn't necessarily what he's currently taking as it could have changed. Med list from Lorie: Lantus 12 units qhs Novolog flex pens sliding scale TID (50 units for q 50/200) Allison Omalley MA Called [facility] to see if they have a better [...] the morning. Would need to call the [phone] phone her phone is . He uses [facility] for his pharmacy. Aware PCP is out [...] med updates in system never filled. Called [facility] and they have not dispensed Novolog since 2021. Advised received rx for humalog with sliding scale QID on 12/06/23 and gave to patient. They have never given Humalog prior. Verified that last LANTUS was fill May 2023 for 90 days and would only last till August. [facility] is not sure if rx are being filled at another pharmacy? I advised we have been sending to [facility] but family could transfer out. Spoke to and she advised spouse insulin comes from [facility] and hers from [facility]. said that she takes Novolog and thought [...] please send rx for Novolog Flexpens to [facility]. Bebeto Haro LPN documented in this encounter [facility] 12-18-2023 Telephone encounter Note Please let pt. Know that I ordered Lantus pens and novolog pens for his sliding scale. Note that insurance may not cover Lantus pens because it is once a day and that pens are for convenience with being out and about. [facility] Work Phone: 12-18-2023 Telephone encounter Note Darinwilfredo from [facility] returned call. States she only sees patient on monthly basis and last visit was 11/15. She states whatever her med list for patient is isn't necessarily what he's currently taking as it could have changed. Med list from [facility]: Lantus 12 units qhs Novolog flex pens sliding scale TID (50 units for q 50/200) Allison Omalley MA [facility] 12-15-2023 Telephone encounter [facility] have a better answer as what he is taking. Lorie will call back. Elma Guthrie MA December 18, 2023 10:03 AM [facility] 12-15-2023 Telephone encounter Note This makes [...] He has been using them since May? [facility] 12-15-2023 Telephone encounter Note Patient shweta returned call and said had gotten Novolog insulin in Vials. He does not have syringes, he uses pens. Right now he does not have any more Novolog pens for sliding scale. He has Lantus pens which he uses 18 units in the morning. Would need to call the [phone] phone her phone is . He uses [facility] for his pharmacy. Aware PCP is out of office. [facility] 12-13-2023 Telephone encounter Note If no response from patient today, recheck with them what insulins he is actually using. [facility] 12-12-2023 Telephone encounter Note Noted. Will keep open. [facility] 12-12-2023 Telephone encounter Note Reviewing notes Novolog was discontinued on 04/07/23 by hospital provider and advised not to restart. Since than we have never refilled rx for Novolog and looks like all humalog rx were just med updates in system never filled. Called [facility] and they have not dispensed Novolog since 2021. Advised received rx for humalog with sliding scale QID on 12/06/23 and gave to patient. They have never given Humalog prior. Verified that last LANTUS was fill May 2023 for 90 days and would only last till August. [facility] is not sure if rx are being filled at another pharmacy? I advised we have been sending to [facility] but family could transfer out. Spoke to and she advised spouse insulin comes from [facility] and hers from [facility]. said that she takes Novolog and thought he was taking it as well. will have daughter call in with what all insulin is in fridge but I assume must me spouse rx. Daughter will call in to verify what sliding scale that patient has been doing. Laurel Adan MA [facility] 12-12-2023 Telephone encounter Note Can we clarify with pharmacy what he has been receiving. The last novolog pen script we had filled was written in 2021 and discontinued in our chart in 04/08. I am confused [facility] 12-12-2023 Telephone encounter Note See scanned POC reports. Pt has Novolog Flexpen listed on current med list. Bebeto Haro LPN T [facility] 12-12-2023 Telephone encounter Note Pt calls [...] please send rx for Novolog Flexpens to [facility]. Bebeto Haro LPN [facility] 12-07-2023 Telephone encounter Note [facility] asking pcp to send new Rx's for the insulin glargine and lispro. They cannot dispense 10.8 ml on the glargine- they have to dispense 15 ml. They cannot dispense 5 ml on the lispro- the least amount they can dispense is 10 ml. Changed Rx's to reflect this. Please send new Rx's to [facility]. [facility] 12-07-2023 Miscellaneous Notes [facility] asking pcp to send new Rx's for the insulin glargine and lispro. They cannot dispense 10.8 ml on the glargine- they have to dispense 15 ml. They cannot dispense 5 ml on the lispro- the least amount they can dispense is 10 ml. Changed Rx's to reflect this. Please send new Rx's to [facility]. documented in this encounter [facility] 12-06-2023 Telephone encounter Note Talked to [...] for daughter to come home to schedule. [facility] 12-06-2023 Miscellaneous Notes Talked to and [...] update. Thank you. documented in this encounter [facility] 12-06-2023 Telephone encounter Note Verify max of his sliding scale insulin he uses in a day for rx [facility] 12-06-2023 Telephone encounter Note Pharmacy calling [...] for. Call patient with update. Thank you. [facility] 11-21-2023 Telephone encounter Note returned call and given provider's message below with verbalized understanding. agreeable and states she will call back to schedule appt. [facility] 11-21-2023 Miscellaneous Notes returned call and given provider's message below with verbalized understanding. agreeable and states she will call back to schedule appt. Called and left a voicemail for the Patient to call back and ask for a nurse to receive the providers message. Tony Palma RN Increase glargine to 18 units. Needs appt and labs. Pts called in with fasting BS log. Date Fasting BS 11/07 298 11/08 289 11/09 287 11/10 315 11/11 342 11/12 n/a 11/13 328 11/14 n/a 11/15 n/a 11/16 349 11/17 n/a 11/18 317 11/19 311 She said on the days she didn't have it marked she may have forgotten to write it down, or he may have eaten before it was checked. documented in this encounter [facility] 11-21-2023 Telephone encounter Note Called and left a voicemail for the Patient to call back and ask for a nurse to receive the providers message. Tony Palma RN [facility] 11-21-2023 Telephone encounter Note Increase glargine to 18 units. Needs appt and labs. [facility] Work Phone: 11-20-2023 Telephone encounter Note Pts called in with fasting BS log. Date Fasting BS 11/07 298 11/08 289 11/09 287 11/10 315 11/11 342 11/12 n/a 11/13 328 11/14 n/a 11/15 n/a 11/16 349 11/17 n/a 11/18 317 11/19 311 She said on the days she didn't have it marked she may have forgotten to write it down, or he may have eaten before it was checked. T [facility] 11-10-2023 Telephone encounter Note The patient [...] Gallardo RN November 10, 2023 3:31 PM T [facility] 11-10-2023 Miscellaneous Notes The patient has [...] 2023 3:31 PM documented in this encounter [facility] 11-07-2023 Telephone encounter Note Phoned and spoke to shweta and went over notes from Dr Arthur with understanding. Shweta said she would need to call back to schedule appt when here daughter that is their transportation is there with her. Advised he was to have had appt a while ago, needs done soon. [facility] 11-07-2023 Miscellaneous Notes Phoned and spoke [...] Marley Bradley LPN documented in this encounter [facility] 11-07-2023 Telephone encounter Note Increase glargine insulin to 18 units insulin and call sugars in one week. See last note, was supposed to make appt to be seen [facility] 11-07-2023 Telephone encounter Note Spouse Shweta calling with pt's AM fasting blood sugar readings: 11/03/23 284 11/04/23 241 11/05/23 376 11/06/23 191 11/07/23 281 Verified with that pt is glargine insulin 14 units daily & humalog per sliding scal\e. Marley Bradley LPN [facility] 11-02-2023 Telephone encounter Note Pt notified and voiced understanding. Josefina Andujar MA [facility] 11-02-2023 Miscellaneous Notes Pt notified and [...] regarding patient. Pt had ER visit at [facility] 10/18/23 for pneumonia. He was ordered an [...] replies. Thank you. documented in this encounter [facility] 10-30-2023 Telephone encounter Note Message left for pt to call back for results. Josefina Andujar MA [facility] 10-30-2023 Telephone encounter Note Change glargine to 14 units a day. Call bring call sugars in two days. [facility] 10-30-2023 Telephone encounter Note Glargine is 12 units once daily as listed. Appt time adjusted so patient can come to office for visit. [facility] 10-30-2023 Telephone encounter Note Verify how much glargine. Would prefer he be seen in person given the pneumonia. [facility] 10-30-2023 Telephone encounter Note Patient's spouse Shweta calling regarding patient. Pt had ER visit at [facility] 10/18/23 for pneumonia. He was ordered an [...] call Shweta back with replies. Thank you. [facility] 10-27-2023 History of Presen t illness Narrative POP[facility]ATION HEALTH NAVIGATION OUTREACH Action/FYI 1st attempt Summary: ED utilization review per request of payer ACM MIGUELITO RN Patient identified by name and date of . Reason for review or outreach: Chart Review Miguelito Priority Emergency Department Utilization REQUESTED ACTION/FYI: Please see ED Utilization summary below: A follow-up appointment is not noted in patient's record. We are forwarding this patient to Network Navigation to schedule a [place] [facility] 10/18/23 PCP follow-up appointment. Thank you VM left for a return call Due for ER follow up Postponed 2 days Reason for Outreach Community Monitoring/Network Navigator Pools & Phone Line: [facility] Patient Contacted: Unable or unnecessary to reach patient: Left message Navigation Signature: Apple Valadez MA October 27, 2023 11:27 AM Summary: ED utilization review per request of payer ACM MIGUELITO RN Patient identified by name and date of . Reason for review or outreach: Chart Review Miguelito Priority Emergency Department Utilization REQUESTED ACTION/FYI: Please see ED Utilization summary below: A follow-up appointment is not noted in patient's record. We are forwarding this patient to [facility] to schedule a [place] [facility] 10/18/23 PCP follow-up appointment. Thank you Cardiology F/U 12/11/23 Exclusion Criteria - Does not meet exclusion criteria ED DIAGNOSES/REASON(S) FOR ED USE: [place] [facility] 10/18/23 Fatigue, elevated blood sugars OTHER FINDINGS/SUMMARY: Unable to find [place] ED plan notes in Care everywhere Patient Attributed To: GABRIELLERomelia Payer: Eladio FITCH Action Taken: Referrals/Routed: Population Health Navigation: Appointment. [facility] [[id number]] Contact made with patient: No, Chart review only. Signature: Mallika GR,RN,[facility] Application Development Team Lead Management Contract RN [phone] documented in this encounter [facility] 10-25-2023 Telephone encounter Note Prescription Refill [...] Ya Granger October 25, 2023 1:48 PM [facility] 10-25-2023 Miscellaneous Notes Prescription Refill Information [...] 2023 1:48 PM documented in this encounter [facility] 10-19-2023 Telephone encounter Note The patient [...] two times a day. Janki Vale RN [facility] 10-19-2023 Miscellaneous Notes The patient has [...] Janki Vale RN documented in this encounter [facility] 10-18-2023 Telephone encounter Note Advised patients , Shweta that patient needs to go to the ER as advised now and previously. She verbalized understanding. Allison Omalley MA [facility] 10-18-2023 Miscellaneous Notes Advised patients , Shweta that patient needs to go to [...] Patient was previously advised on 10/05/2023 by district home economics agent doctor that if patient has symptoms of [...] Apple Allen RN documented in this encounter [facility] 10-18-2023 Telephone encounter Note If sleepy etc and sugars are high, something else may be going on. Concur with previous message. Once stable, we need to see him either virtually or in person. [facility] 10-18-2023 Telephone encounter Note Patient's Shweta calls and is concerned because patient still is having high sugars in the 300s. Patient was previously advised on 10/05/2023 by district home economics agent doctor that if patient has symptoms of [...] Please review and advise, Apple Allen RN [facility] 10-09-2023 Telephone encounter Note Prescription Refill [...] Rae Granger October 09, 2023 12:05 PM [facility] 10-09-2023 Miscellaneous Notes Prescription Refill Information [...] 2023 12:05 PM documented in this encounter [facility] 10-05-2023 Telephone encounter Note Patient's notified of provider recommendations below. voices understanding. Apple Allen RN [facility] 10-05-2023 Miscellaneous Notes Patient's notified of [...] be addressed by PCP team or my DIGITAL ACCOUNT DIRECTOR. How is patient feeling this morning? What [...] fine. Please advise. documented in this encounter [facility] 10-05-2023 Telephone encounter Note With symptoms of fatigue and high sugars above 300 would recommend evaluation in the ER for DKA or other infections that may be causing high sugars. Again, it looks like his diabetes was well controlled on his last A1c, so this seems unusual for him. [facility] Work Phone: 10-05-2023 Telephone encounter Note [...] now. Shweta voices understanding. Apple Allen RN [facility] 10-05-2023 Telephone encounter Note Can we try reaching out to this patient again. If he is not responding I may need to call for well check on him. [facility] 10-05-2023 Telephone encounter Note TC patient, left message for patient to call back and speak with a triage nurse regarding symptoms. Apple Allen RN [facility] 10-05-2023 Telephone encounter Note See Telephone Encounter [facility] 10-05-2023 Miscellaneous Notes See Telephone Encounter documented in this encounter [facility] 10-05-2023 Telephone encounter Note Patient added to triage nurse call back schedule for this morning to discuss current condition and to be advised on provider's plan of care. [facility] 10-05-2023 Telephone encounter Note I am not sure why I was not paged for this yesterday if it was not able to be addressed by PCP team or my DIGITAL ACCOUNT DIRECTOR. How is patient feeling this morning? What are his sugar readings now? Last A1c was in normal range at 6.5, so readings in the 500's would be very concerning for DKA. If he is having symptoms of continued fatigue, nausea/vomiting, abdominal pain, confusion, SOB would recommend ER evaluation now. [facility] 10-04-2023 Telephone encounter Note Patient calling, states that his BS last night was 505 before bed. He had taken all medication as prescribed. This morning it was 272 fasting. Today as the day has gone on his Anahi is just reading high but not giving a number. He is feeling tired but otherwise feels fine. Please advise. [facility] 09-25-2023 Telephone encounter Note Faxed to [employer] as requested. Notified Shweta. [facility] 09-25-2023 Miscellaneous Notes Faxed to [employer] as requested. Notified Shweta. printed Pt's calling back to let pcp know that [employer] will cover adult briefs(Depends). Pt needs X-large size. Please fax order to [email or web address]. Please contact pt's Shweta when order has been faxed. If office gets her vm she does not know how to use it and requests that office contact their daughter Gissell at [phone] and leave message if Gissell does not [...] a call back. documented in this encounter [facility] 09-25-2023 Telephone encounter Note printed [facility] 09-25-2023 Telephone encounter Note Pt's calling back to let pcp know that [employer] will cover adult briefs(Depends). Pt needs X-large size. Please fax order to [employer]. Please contact pt's Shweta when order has been faxed. If office gets her vm she does not know how to use it and requests that office contact their daughter Gissell at [phone] and leave message if Gissell does not answer. Samy Keith LPN [facility] 09-25-2023 Telephone encounter Note Attempted to contact pt with no answer. Left voicemail to return call with the information from insurance. Contacted Shweta and she states she has not checked with insurance yet but will do it today and return the call with that information. [facility] 09-22-2023 Telephone encounter Note Pt's Shweta [...] them and give us a call back. [facility] 09-19-2023 Telephone encounter Note Everything faxed. Allison Omalley MA [facility] 09-19-2023 Miscellaneous Notes Everything faxed. Allison Omalley MA printed Fax received from [facility] requesting a quad can and tub transfer bench. They ask that the orders be faxed to Anastacio Shafer at [phone] with any relevant chart notes. Fax placed on provider's desk. Elma Guthrie MA September 19, 2023 1:16 PM documented in this encounter [facility] 09-19-2023 Telephone encounter Note printed [facility] 09-19-2023 Telephone encounter Note Fax received from [facility] requesting a quad can and tub transfer bench. They ask that the orders be faxed to Anastacio Shafer at [phone] with any relevant chart notes. Fax placed on provider's desk. Elma Guthrie MA September 19, 2023 1:16 PM [facility] 08-07-2023 Telephone encounter Note The patient [...] Allen RN August 07, 2023 10:52 AM [facility] 08-07-2023 Miscellaneous Notes The patient has [...] 2023 10:52 AM documented in this encounter [facility] 07-25-2023 Telephone encounter Note Prescription Refill [...] Allen RN July 25, 2023 1:28 PM [facility] 07-25-2023 Miscellaneous Notes Prescription Refill Information [...] 2023 1:28 PM documented in this encounter [facility] 07-21-2023 Telephone encounter Note ALANA Elizalde with [facility] calls to notify provider that patient is now on the waiver program. Joan Gallardo RN [facility] 07-21-2023 Miscellaneous Notes ALANA Elizalde with [facility] calls to notify provider that patient is now on the waiver program. Joan Gallardo RN documented in this encounter [facility] 07-19-2023 Telephone encounter Note Marley called from [facility] and to report that patient was discharged for OT and Home Health Services today. [facility] 07-19-2023 Miscellaneous Notes Marley called from [facility] and to report that patient was discharged for OT and Home Health Services today. Reuben PT- [facility]- reports he discharged patient today from PT. Reports patient has reached a plateu- and does not show interest in doing things for himself as he has family members who do everything for him. Patient is not motivated to do things for himself although he is able to. documented in this encounter [facility] 07-17-2023 Telephone encounter Note Reuben PT- [facility]- reports he discharged patient today from PT. Reports patient has reached a plateu- and does not show interest in doing things for himself as he has family members who do everything for him. Patient is not motivated to do things for himself although he is able to. [facility] 07-13-2023 Telephone encounter Note July GONZALEZ with [facility] called and is notified of providers message. She voices understanding. Tony Palma RN [facility] 07-13-2023 Miscellaneous Notes July GONZALEZ with [facility] called and is notified of providers message. She voices understanding. Tony Palma RN ok July GONZALEZ with [facility] she states they were supposed to reassess Pt today, but Pt missed visit as he was having too much back pain. She is asking for a verbal order to see the Pt next week for reassessment. documented in this encounter [facility] 07-13-2023 Telephone encounter Note ok [facility] 07-13-2023 Telephone encounter Note July OT with [facility] she states they were supposed to reassess Pt today, but Pt missed visit as he was having too much back pain. She is asking for a verbal order to see the Pt next week for reassessment. [facility] 07-05-2023 Instructions Angela Schmid APRN.TODD - 07/05/2023 1:48 PM EDT Set up with GI. To ER with any recurrence of symptoms. documented in this encounter [facility] 07-05-2023 History of Presen t illness Narrative This is a 62 year old male who presents today with: Patient presents with: Transition Of Care HISTORY OF PRESENT ILLNESS: Kiel Catherine is a 62 year old male. Patient presents with: Transition Of Care Patient presents today for hospital follow-up. He was admitted to [facility] on 06/21/2023. He presented to the emergency [...] Diagnosis Date Acute ischemic left MCA stroke ([facility]) 03/22/2023 Anxiety Aortic valve stenosis, nonrheumatic Atrial septal defect and mitral stenosis Bicuspid aortic valve Bipolar 1 disorder ([facility]) Chronic obstructive pulmonary disease (COPD) ([facility]) Coronary artery disease Degenerative disc disease sees Dr. Sellers Diabetic neuropathy ([facility]) DM (diabetes mellitus) ([facility]) HTN (hypertension) Hyperkalemia Hyperlipidemia Hypogonadism male LVH (left ventricular hypertrophy) Morbid obesity ([facility]) MANISH on CPAP Pain management Dr. [...] Disease Brother other (Myocardial infarc) Brother Fatal [place] No Ocular Disease No Family History Social [...] as needed for worsening/no improvement. Angela Schmid APRN.SEASONER HAND documented in this encounter [facility] 07-03-2023 Instructions Laurel Pierce DO - 07/03/2023 10:53 AM EDT Images from the original note were not included. Regarding your visit at the [facility] we discussed the following: [...] and diabetes with primary care provider with mcc goals as above Counseled patient on signs and symptoms of stroke if develops them in the future, seek medical attention immediately by calling 9--1 Stroke Signs and Symptoms: *Stroke is a [...] or TIA who have evidence of atherosclerosis. termite control representative goal LDL is less than 70 in most stroke patients. Diet - Limit carbohydrates, saturated and trans fats, sodium, sweets, and red meat - Consume fruits, vegetables, whole grains, low-fat dairy products, skinless poultry, nuts and legumes - Consider the DASH (Dietary Approaches to Stop Hypertension) diet (if you have hypertension) or the Mediterranean diet - more information: https://www.heart.org/en/healthy -living/healthy-eating/eat-smart /nutrition-basics/jnq-hrko-hkb-l ifestyle-recommendations Smoking and Tobacco Use (including e-cigarettes) [...] may be considered documented in this encounter [facility] 07-03-2023 History of Presen t illness Narrative [facility] Established Visit Consultation is requested by: No referring provider defined for this encounter. PCP: Alyson Arthur [address] [place] [address] CEREBROVASCULAR HISTORY Kiel Catherine is a 62 [...] to follow up closer to home in [place]. Does not want any additional follow up here given distance PAST MEDICAL HISTORY Diagnosis Date Acute ischemic left MCA stroke ([facility]) 03/22/2023 Anxiety Aortic valve stenosis, nonrheumatic Atrial septal defect and mitral stenosis Bicuspid aortic valve Bipolar 1 disorder ([facility]) Chronic obstructive pulmonary disease (COPD) ([facility]) Coronary artery disease Degenerative disc disease sees Dr. Sellers Diabetic neuropathy ([facility]) DM (diabetes mellitus) ([facility]) HTN (hypertension) Hyperkalemia Hyperlipidemia Hypogonadism male LVH (left ventricular hypertrophy) Morbid obesity ([facility]) MANISH on CPAP Pain management Dr. [...] Disease Brother other (Myocardial infarc) Brother Fatal [place] No Ocular Disease No Family History Social [...] wants to do this through cardiology in [place] Continue therapies at home for stroke recovery Lifestyle modification -Recommend mediterranean diet -Regular exercise Management of hypertension, hyperlipidemia, and diabetes with primary care provider with terminologist goals as above Counseled patient on signs and symptoms of stroke if develops them in the future, seek medical attention immediately by calling 10-14-1 I spent a total of 60 minutes on the date of service which included preparing to see the patient, [id number] patient care, completing clinical documentation, obtaining and/or reviewing separately obtained history, performing a medically appropriate examination, counseling and educating the patient/family/caregiver, and independently interpreting results (not separately reported) Has appt with neurology closer to home Wants to follow up prn with vascular neurology due to distance. Offered virtual follow up to check in on stroke recovery, he declined SIGNATURE Laurel Pierce, DO Vascular Neurology [facility] Alyson Brewer Jerson [address] [place] [address] documented in this encounter [facility] 06-29-2023 Telephone encounter Note Agree with PT recommendations [facility] Work Phone: 06-29-2023 Miscellaneous Notes Agree with PT recommendations Josué PT @ [facility] calling with plan of care. Physical Therapy will see patient 1 x/week for three weeks for mobility and balance. If agree, no call back needed. Tia Arenas RN documented in this encounter [facility] 06-29-2023 Telephone encounter Note CARLTON Moses @ [facility] calling with plan of care. Physical Therapy will see patient 1 x/week for three weeks for mobility and balance. If agree, no call back needed. Tia Arenas RN [facility] 06-28-2023 Telephone encounter Note Phoned Marley and left detailed message with verbal order from Dr Arthur on her voicemail. [facility] 06-28-2023 Miscellaneous Notes Phoned Marley and left detailed message with verbal order from Dr Arthur on her voicemail. ok Marley from [facility] calling asking for verbal order for 2 additional OT visits working with right upper extremity. Please advise documented in this encounter [facility] 06-28-2023 Telephone encounter Note ok [facility] 06-28-2023 Telephone encounter Note Marley from [facility] calling asking for verbal order for 2 additional OT visits working with right upper extremity. Please advise [facility] 06-27-2023 History of Presen t illness Narrative Thoracic and Cardiovascular Surgery [facility] CARDIOTHORACIC CLINIC NOTE CHART COPY DO NOT DISCARD Patient Type: Established Visit to determine Surgery: No PCP: Alyson Arthur [address] [place] [address] Referring Physician:: Elma Meeks [address] [facility] [address] Mr. Kiel Catherine returns to clinic today [...] Shlomo Alcocer MD documented in this encounter [facility] 06-27-2023 History of Presen t illness [...] PATIENT PRESENTS WITH AN IMPLANTABLE OR ATTACHED STORE TEAM LEADER: No RADIOLOGY DEPARTMENT: CT; Exam(s) Completed: CTA Chest PERIPHERAL IV DATA: Site assessment: Clean,Dry and Intact, Site disposition Discontinued SIGNED BY: RT Dionne(R) June 27, 2023 12:45 PM documented in this encounter [facility] 06-26-2023 Telephone encounter Note Left detailed message on identifiable voicemail. [facility] 06-26-2023 Miscellaneous Notes Left detailed message [...] Apple Allen RN. documented in this encounter [facility] 06-26-2023 Telephone encounter Note Patient has scheduled CTA for tomorrow. Dr. Alcocer office was notified by CTA department that the patient did not have premedication ordered. Called local [facility] with Prednisone prescription using the [employer] system. Called to let lit know that this was called in. Rubén Carter RN [facility] 06-26-2023 Miscellaneous Notes Patient has scheduled CTA for tomorrow. Dr. Alcocer office was notified by CTA department that the patient did not have premedication ordered. Called local [facility] with Prednisone prescription using the messaging system. Called to let lit know that this was called in. Rubén Carter RN documented in this encounter [facility] 06-26-2023 Telephone encounter Note Rx sent for smaller amount. Attempt to wean down. If continues to need, needs to get back into pain management. [facility] 06-26-2023 Telephone encounter Note Patient was released yesterday per his . Appointment scheduled for Hospital follow up. Scheduled with Angela. [facility] 06-26-2023 Telephone encounter Note Is he still in the hospital? If so, will hold on refilling. [facility] 06-26-2023 Telephone encounter Note Patient has [...] Please advise. Thank you. Apple Allen RN. [facility] 06-24-2023 Discharge summary Note Date/Time June 24, 2023 1:03p [facility] Medical Records Department [address] [place] [address] Discharge Summary 06/24/23 1300 MR#: [id number] Acct: [id number] Name: KIEL CATHERINE Rep #:[id number] : 1960 62 From: Trip Fraire DO PCP: Dr. Alyson Arthur MD Status:ADM I N Location: [place] [address] Providers Date of Admission: 06/22/23 Primary Care [...] and aortic valve replacement * Performed at [facility] 03/2023. Recent left MCA stroke * Residual [...] mg tablet 37.5 mg PO Q12H 06/22/23 msanzybq-ha-gocpu 300 mcg-K 60 mcg-lycop 600 mcg-lutein 300 [...] % (Auto) 61.5, Lymph % (Auto) 24.7, [place] % (Auto) 11.6 H, Eos % (Auto) [...] DAILY PRN (Reason: constipation) Centrum Silver Men [id number] mcg tablet 1 tab PO DAILY Referrals / Follow Up: Alyson Arthur MD [Primary Care Provider] - Within 2 Weeks Disposition Disposition (needs filled in before D/C Order can be placed): Home, Self Care Charges/Coding Visit Charges Inpatient E&M: 39435 Disch Hosp 06/24/23 1307 <Electronically signed by Trip Fraire DO> Cosigner Signature (if applicable): CC: Dr. Trip Fraire DO; Dr. Alyson Arthur MD~ Signed [facility] Work Phone: 1(964) 259-205405-11-2024 Progress note Author Trip Fraire [facility] June 24, 2023 11:34am Note Date/Time June 24, 2023 7:56a m [facility] Medical Records Department [address] [place] [address] Progress Note - Hospitalist 06/24/23 0756 MR#: [id number] Acct: [id number] Name: KIEL CATHERINE Rep #:[id number] : 1960 62 From: Trip Fraire DO PCP: Dr. Alyson Arthur MD Status:ADM I N Location: [place] [address] Reason for Visit Reason for Visit: Diagnoses [...] and aortic valve replacement * Performed at [facility] 03/2023. Recent left MCA stroke * Residual [...] disposition: TBD Charges/Coding Visit Charges Inpatient E&M: 28910 Subs Hosp L2 06/24/23 1134 <Electronically signed by Trip Fraire DO> Cosigner Signature (if applicable): CC: ~ Signed [facility] Work Phone: 1(469) 551-584205-11-2024 Progress note Author Kiel Chacon [facility] June 24, 2023 11:09am Note Date/Time June 24, 2023 10:04 am [facility] Medical Records Department [address] [place] [address] Progress Note - Surgery 06/24/23 1003 MR#: [id number] Acct: [id number] Name: KIEL CATHERINE Rep #:[id number] : 1960 62 From: Kiel Tony PCP: Dr. Alyson Arthur MD Status:ADM I N Location: [place] [address] Subjective Subjective Patient seen and examined during [...] % (Auto) 61.5, Lymph % (Auto) 24.7, Sequoyah % (Auto) 11.6 H, Eos % (Auto) [...] Marlene Singletary MD at 8:06 EDT , Physical Exam Const oriented x3 Constitutional [...] Chacon MD General Surgery Endocrine Surgery Pager: [facility] [address] [place] [address], [facility], [address] [place] [address] Office: [phone] 05/01/06 1109 <Electronically signed by Kiel Chacon MD> Cosigner Signature (if applicable): CC: ~ Signed [facility] Work Phone: 1(326) 201-375005-10-2024 Progress note Author Trip Fraire [facility] June 23, 2023 3:30pm Note Date/Time June 23, 2023 8:45a m [facility] Medical Records Department [address] [place] [address] Progress Note - Hospitalist 06/23/23 0836 MR#: [id number] Acct: [id number] Name: KIEL CATHERINE Rep #:[id number] : 1960 62 From: Trip Fraire DO PCP: Dr. Aylson Arthur MD Status:ADM I N Location: [place] [address] Reason for Visit Reason for Visit: Diagnoses [...] (Auto) 77.0 H, Lymph % (Auto) 12.5 L,[place] % (Auto) 9.6, Eos % (Auto) 0.1, [...] Clarity Clear, Urine pH 5.0, Ur Specific [place] 1.025, Urine Protein 30 H, Urine Glucose [...] and aortic valve replacement * Performed at [facility] 03/2023. Recent left MCA stroke * Residual [...] disposition: TBD Charges/Coding Visit Charges Inpatient E&M: 30451 Subs Hosp L2 06/23/23 1530 <Electronically signed by Trip Fraire DO> Cosigner Signature (if applicable): CC: ~ Signed [facility] Work Phone: 1(543) 555-584705-10-2024 Progress note Author Raj Stevenson [facility] June 23, 2023 8:32am Note Date/Time June 23, 2023 8:33a m [facility] Medical Records Department [address] [place] [address] Progress Note - Surgery 06/23/23 0832 MR#: [id number] Acct: [id number] Name: KIEL CATHERINE Rep #:[id number] : 1960 62 From: Raj márquez MD PCP: Dr. Alyson Arthur MD Status:ADM I N Location: [address] 1 Subjective Subjective Patient reports he is feeling [...] (Auto) 77.0 H, Lymph % (Auto) 12.5 L,[place] % (Auto) 9.6, Eos % (Auto) 0.1, [...] Clarity Clear, Urine pH 5.0, Ur Specific [place] 1.025, Urine Protein 30 H, Urine Glucose [...] MD at 15:35 EDT , ADDENDUM: 06/22/23 2219 IMPRESSION: Small bowel obstruction with question of [...] I will discuss with him surgical options. aRj Stevenson MD Pager: [facility] [address] [place] [address], [address] [place] [address] Office: 06/23/23 7729 <Electronically signed by Raj Stevenson MD> Cosigner Signature (if applicable): CC: ~ Signed [facility] Work Phone: 1(998) 532-151205-10-2024 History and physical note Author Patrick Sharma [facility] June 23, 2023 12:25am Note Date/Time June 22, 2023 4:28pm [facility] Medical Records Department [address] [place] [address] H&P Exam - Hospitalist 06/22/23 1628 MR#: [id number] Acct: [id number] Name: KIEL CATHERINE Rep #:[id number] : 1960 62 From: Patrick melo DO PCP: Dr. Alyson Arthur MD Status:ADM I N Location: [place] [address]- 1 HPI - General General Date of Admission: 06/22/23 Date of Service: 06/22/23 Chief Complaint: Abdominal pain HPI Narrative KIEL CATHERINE, is a 62 M who presented to [facility] ED on 06/22/2023 with worsening abdominal pain. [...] medical history; further information was obtained through [facility]. Most recently the patient underwent an openascending aortic aneurysm repair with aortic valve replacement at the [facility] in March. Unfortunately that procedure was [...] Will admit for further management. [facility] Medical History Anxiety Asthma Atherosclerotic heart disease of [place] coronary artery without angina pectoris Atrial septal [...] PO Q12H 06/22/23 [History Last Taken 06/22/23] kvpgceiv-qf-hujuj 300 mcg-K 60 mcg-lycop 600 mcg-lutein 300 [...] (Auto) 77.0 H, Lymph % (Auto) 12.5 L,[place] % (Auto) 9.6, Eos % (Auto) 0.1, [...] Clarity Clear, Urine pH 5.0, Ur Specific [place] 1.025, Urine Protein 30 H, Urine Glucose [...] 15:35 EDT Reading Location ID and State: [facility] / [place] Tel , Service support , ADDENDUM: 06/22/23 1544 IMPRESSION: Small bowel [...] Patient is a 62-year-old male who presented [facility] ED on 06/22/2023 with abdominal pain. 1. [...] valve replacement ? Surgery done at the [facility] in March 2023. Repeat echo recently [...] 55 minutes. Charges/Coding Visit Charges Inpatient E&M: 86708 Init Hosp L2 06/23/23 0025 <Electronically signed by Patrick Sharma DO> Cosigner Signature (if applicable): CC: Dr. Patrick Sharma DO; Dr. Alyson Arthur MD~ Signed [facility] Work Phone: 1(199) 309-622205-09-2024 Discharge summary Author Carmen Matthews [facility] June 22, 2023 4:58pm Note Date/Time June 22, 2023 2:23pm [facility] Medical Records Department [address] [place] [address] Emergency Department Summary 06/22/23 MR#: [id number] Acct: [id number] Name: KIEL CATHERINE Rep #:[id number] : 1960 62 From: Carmen Matthews [...] toresolve and then recurred again last evening. [facility] Medical History Anxiety Asthma Atherosclerotic heart disease of [place] coronary artery without angina pectoris Atrial septal [...] 77.0 H Lymph % (Auto) 12.5 L [place] % (Auto) 9.6 Eos % (Auto) 0.1 [...] Clarity Clear Urine pH 5.0 Ur Specific [place] 1.025 Urine Protein 30 H Urine Glucose [...] Provider] - Disposition Disposition: Acute Care Hospital [facility] What to do if you have Problems For any increased pain, shortness of breath, bleeding, nausea or vomiting, chestpain, or any unexpected problems, contact your Primary Care Provider. Call [facility] ([phone]) or report to the closest Emergency Room. Call 911 if necessary. 06/22/23 1658 <Electronically signed by Carmen Matthews MD> Cosigner Signature (if applicable): CC: Dr. Alyson Arthur MD ~ Signed [facility] Work Phone: 1(478) 198-500205-09-2024 Consult note Author Raj Stevenson [facility] June 22, 2023 4:32pm Note Date/Time June 22, 2023 4:32pm [facility] Medical Records Department [address] [place] [address] Consultation - Surgical 06/22/23 1625 MR#: [id number] Acct: [id number] Name: KIEL CATHERINE Walt Rep #:[id number] : 1960 62 From: Raj márquez [...] his blood thinners. Raj Stevenson MD Pager: [facility] [address] [place] [address], [address] [place] [address] Office: HPI Consult Data Date of Consult: 06/22/23 HPI Narrative HPI Narrative: KIEL CATHERINE, is a 62 M who presents with nausea and vomiting. The patient has a complicated medical history. He also is a poor historian. Patient says that he had bicuspid valve replacement in March [facility]. He says hehad a CVA during the surgery. He says that he developed a bowel obstruction after the surgery. He has had 2 other bowel obstructions treated at [facility]. He says they were treated nonoperatively. The patient reports no previous abdominal surgeries. He says his mid upper abdomen is painful. He says he had a bowel movement yesterday and feels like he has to have another 1. He denies acute pain and says that it comes and goes. [facility] Medical History Anxiety Asthma Atherosclerotic heart disease of [place] coronary artery without angina pectoris Atrial septal [...] (Auto) 77.0 H, Lymph % (Auto) 12.5 L,[place] % (Auto) 9.6, Eos % (Auto) 0.1, [...] Clarity Clear, Urine pH 5.0, Ur Specific [place] 1.025, Urine Protein 30 H, Urine Glucose [...] 15:35 EDT Reading Location ID and State: [facility] / [place] Tel , Service support , ADDENDUM: 06/22/23 1544 IMPRESSION: Small bowel [...] applicable): CC: Dr. Alyson Arthur MD~ Signed [facility] Work Phone: 1(501) 277-993705-09-2024 Discharge summary Author Carmen Matthews [facility] June 22, 2023 4:58pm Note Date/Time June 22, 2023 2:23pm [facility] Medical Records Department [address] [place] [address] Emergency Department Summary 06/22/23 MR#: [id number] Acct: [id number] Name: KIEL CATHERINE Watl Rep #:[id number] : 1960 62 From: Carmen Matthews [...] toresolve and then recurred again last evening. [facility] Medical History Anxiety Asthma Atherosclerotic heart disease of [place] coronary artery without angina pectoris Atrial septal [...] 77.0 H Lymph % (Auto) 12.5 L [place] % (Auto) 9.6 Eos % (Auto) 0.1 [...] Clarity Clear Urine pH 5.0 Ur Specific [place] 1.025 Urine Protein 30 H Urine Glucose [...] MD at 15:35 EDT , ADDENDUM: 06/22/23 1546 IMPRESSION: Small bowel obstruction with question of early ischemic change. N.B. : The above Results were Read Back by Ronan Awan MD to Carmen Matthews MD, and understanding confirmed on 06/22/2023 15:37:25 (ET). Electronically Signed: Ronan Awan MD at 15:35 EDT Reading Location ID and State: [facility] / [place] Tel , Service support , Treatment and Re-Evaluation :: CBC was [...] Provider] - Disposition Disposition: Acute Care Hospital [facility] What to do if you have Problems For any increased pain, shortness of breath, bleeding, nausea or vomiting, chestpain, or any unexpected problems, contact your Primary Care Provider. Call [facility] ([phone]) or report to the closest Emergency Room. Call 911 if necessary. 06/22/23 2691 <Electronically signed by Carmen Matthews MD> Cosigner Signature (if applicable): CC: Dr. Alyson Arthur MD ~ Signed [facility] Work Phone: 1(742) 791-548005-09-2024 Telephone encounter Note* Telephone Encounter - Alyson Arthur MD - 06/22/2023 1:40 PM EDT agree [facility]05-09-2024 Miscellaneous Notes* Telephone Encounter - Alyson Arthur MD - 06/22/2023 1:40 PM EDT agree * Telephone Encounter - Apple Allen RN - 06/22/2023 1:19 PM EDT Prakash from [facility] calls to report that patient is complaining [...] thinking. Apple Allen RN documented [facility] Telephone encounter Note * Telephone Encounter - Apple Allen RN - 06/22/2023 1:19 PM EDT Prakash from [facility] calls to report that patient is complaining [...] what she was thinking. Apple Allen RN [facility]04-29-2024 Telephone encounter Note* Telephone Encounter - Aminah Escudero LPN - 06/12/2023 4:34 PM EDT Called and spoke with Shweta. States that still with abd pain and nausea. Still has diarrhea at times. Constipation is better using Miralax. No vomiting. Patient in background stating that feeling much better. Reminded them to be sure he keeps visit on 06/23/23. [facility] Miscellaneous Notes* Telephone Encounter - Aminah [...] triage nurse. 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 Spouse asking for nausea medication from [...] be covered by insurance Please advise spouse. [phone] documented in this encounterNewark Hospital04-26-2024 Telephone encounter Note * Telephone Encounter - Aminah Escudero LPN - 06/09/2023 4:12 PM EDT Left a message for patient/ to call and speak with triage nurse. (05/25/23 we had called in [facility] did that help him when he used it?) [facility] Telephone encounter Note* Telephone Encounter - Alyson Arthur MD - 06/09/2023 3:16 PM EDT I actually saw him several weeks ago so it does not really mean much He had just gotten out of the hospital with a sbo. Is he having any distention. Is the abd like he went into the hospital for Is he feeling worse. 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 Spouse asking for nausea medication from [...] be covered by insurance Please advise spouse. [phone] [facility]04-23-[facility] Instructions* Patient Instructions* Kiel Barnes MD - 06/06/2023 3:38 PM EDT - stop amiodarone (pacerone) documented in this encounterNewark Hospital04-23-2024 History of Present illness Narrative* Kiel Barnes MD - 06/06/2023 3:23 PM EDT Images from the original note were not included. Heart, Vascular and Thoracic [place] Devyn Gomez Department of Cardiovascular Medicine SECTION OF CLINICAL CARDIOLOGY OUTPATIENT VISIT DATE June 06, 2023 OUTPATIENT VISIT TYPE ESTABLISHED PRIMARY CARE PHYSICIAN: Alyson Arthur [address] [place] [address] REFERRING PHYSICIAN: Ruben Hanson [address], [address] [facility] [id number] CHIEF COMPLAINT: Follow-up 03/20/2023: AVR (27 Epic [...] does not have to travel to the [facility]. PAST MEDICAL HISTORY Diagnosis Date Acute ischemic left MCA stroke (HCC) 03/22/2023 Anxiety Aortic valve stenosis, nonrheumatic Atrial septal defect and mitral stenosis Bicuspid aortic valve Bipolar 1 disorder (HCC) Chronic obstructive pulmonary disease (COPD) (HCC) Coronary artery disease Degenerative disc disease sees Dr. Sellers Diabetic neuropathy ([facility]) DM (diabetes mellitus) (HCC) HTN (hypertension) Hyperkalemia [...] Disease Brother other (Myocardial infarc) Brother Fatal SC No Ocular Disease No Family History ALLERGIES: [...] needles, DISPOSABLE, (PEN NEEDLE) 31 gauge x 06/28^Use one needle per dose. 4per day.^Disp:100 Each^Rfl: [...] was interpreted by Dr. Dario Santiago from [employer] Operator: TOMMY Transcribe Date/Time: Nov 24 2022 6:53P Dictated [...] potential of discontinuing his DOAC. Kiel Godoy Florin will follow-up as needed. Thank you for allowing me to participate in the care of your patient. Please reach out to me at anytime with questions or concerns. Kiel Barnes MD, MS, [facility] Co-Director, [facility] rotor coil taper, [facility] Section of Clinical Cardiology, Department of Cardiovascular Medicine Nora Garcia [facility] Heart, Vascular, and Thoracic [place] [facility], [address] [place] [address], Desk [facility], [place], [place] [address] Office Office Appointments: [phone] I personally interviewed, confirmed and edited the above information as obtained by others. documented in this encounterNewark Hospital04-22-2024 Telephone encounter Note * Telephone Encounter - Laurel Adan MA - 06/05/2023 1:46 PM EDT Keep receiving a response through covermymeds N/A -resubmitted. Called [employer] and was advised that approved till 02/13/2024. Authorization # [id number] Laurel Adan MA [facility]04-[facility]24 Miscellaneous Notes* Telephone Encounter - Laurel Adan MA - 06/05/2023 1:46 PM EDT Keep receiving a response through covermymeds N/A -resubmitted. Called [employer] and was advised that approved till 02/13/2024. Authorization # [id number] Laurel Adan MA * Telephone Encounter - Laurel Adan MA - 06/05/2023 12:59 PM EDT Prior Authorization has been completed online at [employer] for Michael, will await response. [id number] Please keep encounter open until final decision has been received and documented from insurance company. Laurel Adan MA documented in this encounterNewark Hospital04-22-2024 Telephone encounter Note * Telephone Encounter - Laurel Adan MA - 06/05/2023 12:59 PM EDT Prior Authorization has been completed online at [employer] for Michael, will await response. [id number] Please keep encounter open until final decision has been received and documented from insurance [employer]. Laurel Adan MA [facility]04-19-2024 Miscellaneous Notes* Telephone Encounter - Apple Allen RN - 06/02/2023 9:15 AM EDT Abel OT called and notified of verbal order for additional OT visits. Abel voices understanding. Apple Allen RN * Telephone Encounter - Alyson Arthur MD - 06/01/2023 5:00 PM EDT ok * Telephone Encounter - Apple Allen RN - 06/01/2023 3:25 PM EDT Abel OT from [facility] calls and is requesting verbal order for 4 additional occupational therapy visits. Please review and advise, Apple Allen RN documented in this encounterNewark Hospital04-17-2024 Telephone encounter Note * Telephone Encounter - Tia Arenas RN - 05/31/2023 3:55 PM EDT CARLTON Alexis @ [facility] calling to let provider know that patient declined a second PT visitthis week. He will be seen again next week. Tia Arenas RN [facility] Miscellaneous Notes* Telephone Encounter - Tia Arenas RN - 05/31/2023 3:55 PM EDT CARLTON Alexis @ [facility] calling to let provider know that patient declined a second PT visitthis week. He will be seen again next week. Tia Arenas, RN documented in this encounterNewark Hospital04-16-2024 Telephone encounter Note * Telephone Encounter - Scott Cabrera RN - 05/30/2023 11:35 AM EDT [facility], phoned to let pcp know, they are applying for a waiver program for patient to have HHAide assistance. [facility] Miscellaneous Notes* Telephone Encounter - Scott Cabrera RN - 05/30/2023 11:35 AM EDT Demi Medranomati Nick[employer] Plater, phoned to let pcp know, they are applying for a waiver program for patient to have HHAide assistance. documented in this encounterNewark Hospital04-15-2024 History of Present illness Narrative* Jim Jeffers, PRICILA.[facility] - 05/29/2023 12:53 PM EDT Subjective HPI [...] stenosis Bicuspid aortic valve Bipolar 1 disorder ([facility]) Chronic obstructive pulmonary disease (COPD) ([facility]) Coronary artery disease Degenerative disc disease sees Dr. Sellers Diabetic neuropathy ([facility]) DM (diabetes mellitus) ([facility]) HTN (hypertension) Hyperkalemia Hyperlipidemia Hypogonadism male LVH (left ventricular hypertrophy) Morbid obesity ([facility]) MANISH on CPAP Pain management Dr. [...] Disease Brother other (Myocardial infarc) Brother Fatal SC No Ocular Disease No Family History Social [...] of care. This note was generated using nanoRETE software. It may contain errors in wording,punctuation, or spelling. Jim Jeffers APRN.SEASONER HAND documented in this encounterNewark Hospital04-15-2024 History of Present illness Narrative* Martha [...] PATIENT PRESENTS WITH AN IMPLANTABLE OR ATTACHED STORE TEAM LEADER: No RADIOLOGY DEPARTMENT: General X-ray: Exam(s) Completed: Upper Extremity X- Ray(s): Wrist, right and Hand, right PERIPHERAL IV DATA: Not applicable SIGNED BY: RT Jenny(R) May 29, 2023 1:00 PM documented in this encounterNewark Hospital04-15-2024 Miscellaneous Notes* Telephone Encounter - Alyson Arthur MD - 05/29/2023 8:30 AM EDT Ok. * Telephone Encounter - Joan Gallardo RN - 05/29/2023 8:06 AM EDT Abel OT with [facility] calls to let provider know there is a delay in start of care for OT assessment per patient request. The plan is to see patient sometime this week to start OT. Joan Gallardo RN documented in this encounterNewark Hospital04-11-2024 Miscellaneous Notes* Telephone Encounter - Elma Guthrie MA - 05/25/2023 2:38 PM EDT [facility] and notified. Elma Guthrie MA * Telephone Encounter - Alyson Arthur MD - 05/25/2023 1:42 PM EDT I am not sure I want him to remain on this terminologist. I would prefer he begin to taper off the usage of tramadol. Let him know as well. Make sure he is using it prn. Not scheduled. * Telephone Encounter - Janki Vale RN - 05/25/2023 12:52 PM EDT [facility] calling and states they do pill packaging for patient and his current Tramadol orderends in early June. Pharmacy asking if script for June can be sent over early, so they can work on the pill packaging? Thank you. documented in this encounterNewark Hospital04-11-2024 Telephone encounter Note * Telephone Encounter [...] Guthrie MA May 25, 2023 1:48 PM [facility] Miscellaneous Notes* Telephone Encounter - Elma [...] 05/25/2023 12:36 PM EDT nurse Prakash @ [facility] calling to let PCP know nursing will [...] also yellowish green. If medication prescribed, Drug [facility]. Tia Arenas RN documented in this encounterNewark Hospital04-11-2024 Telephone encounter Note * Telephone Encounter - Alyson Arthur MD - 05/25/2023 1:03 PM EDT Sent. Did he go to Er yesterday for abd pain? [facility] Telephone encounter Note* Telephone Encounter - Tia Arenas RN - 05/25/2023 12:36 PM EDT Prakash, nurse @ [facility] calling to let PCP know nursing will [...] was also yellowish green. If medication prescribed, [facility]. Tia Arenas, RN [facility]04-10-2024 Miscellaneous Notes* Telephone Encounter - Aminah [...] reports pt [facility]. This comes and goes. today it [...] this. July Perez LPN documented in this encounterNewark Hospital04-10-2024 Miscellaneous Notes* Telephone Encounter - July [...] you. July Perez LPN. documented in this encounterNewark Hospital04-10-2024 Miscellaneous Notes* Telephone Encounter - Laurel Adan MA - 05/24/2023 11:28 AM EDT Daughter advised yes patient was started on this from [place] and is taking as directed [facility] [place] record/discharge report yesterday still not recieved Laurel Adan MA * Telephone Encounter - Alyson Arthur MD - 05/24/2023 11:19 AM EDT Just got his med rec from [facility]. Is on eliquis per them which is one that is not showing on our list. Make she is on it. Does he need refills? documented in this encounterNewark Hospital04-10-2024 Miscellaneous Notes* Telephone Encounter - Aminah [...] his stomach is feeling? documented in this encounterNewark Hospital04-10-2024 Miscellaneous Notes* Telephone Encounter - Laurel [...] next visit If you have questions, either Wiramat message us or call the office at [phone] and ask for me. Best regards, Keith Livingston PA-C documented in this encounterNewark Hospital04-09-2024 Miscellaneous Notes* Telephone Encounter - Elma [...] anyway. It is not a great med mcc. Also can we make sure we have sent for records from [place] [facility] * Telephone Encounter - Laurel Adan MA [...] completed for temazepam 7.5mg. documented in this encounterNewark Hospital04-09-2024 Telephone encounter Note * Telephone Encounter - Fely Cohn LPN - 05/23/2023 1:38 PM EDT Reuben from [facility] did PT eval today and plan of care is to continue with 8 PT visits. [facility] Miscellaneous Notes* Telephone Encounter - Fely Cohn LPN - 05/23/2023 1:38 PM EDT Reuben from [facility] did PT eval today and plan of care is to continue with 8 PT visits. documented in this encounterNewark Hospital04-09-2024 Miscellaneous Notes* Telephone Encounter - Laurel [...] - 05/22/2023 4:44 PM EDT Kenzie with [facility] calls to report they received rx for both insulins today but need an orderfor syringes and pen needles. Do not know what size syringes pt needs. Please review and advise. Yoly Murray LPN documented in this encounterNewark Hospital04-08-2024 Miscellaneous Notes* Telephone Encounter - Ned Burgess LPN - 05/22/2023 2:43 PM EDT Called [place], updated pharmacy Ned Burgess LPN May 22, 2023 2:43 PM * Telephone Encounter - Alyson Arthur MD - 05/22/2023 2:18 PM EDT Once a day prn * Telephone Encounter - Tia Arenas RN - 05/22/2023 2:06 PM EDT [facility] calling to clarify script for Glycerin suppository. Pharmacy needs # of suppositories patient to use per day. Tia Arenas RN documented in this encounterNewark Hospital04-08-2024 History of Present illness Narrative* Kervin Judd RT(R) - 05/22/2023 10:40 AM EDT Radiology Service [...] PATIENT PRESENTS WITH AN IMPLANTABLE OR ATTACHED STORE TEAM LEADER: No RADIOLOGY DEPARTMENT: General X-ray: Exam(s) Completed: Chest X-Ray Abdomen X-Ray: Abdomen PERIPHERAL IV DATA: Not applicable SIGNED BY: RT Aury(R) May 22, 2023 10:48 AM documented in this encounterNewark Hospital04-08-2024 Instructions* Patient Instructions* Alyson Arthur MD - 05/22/2023 9:57 AM EDT Follow up with Dr. Alcocer with [facility] chest in 3 months (06/27/23). documented in this encounterNewark Hospital04-08-2024 History of Present illness Narrative* Alyson Atrhur MD - 05/22/2023 9:36 AM EDT Patient presents with: Hospital F/U HPI: Patient presents today for office visit for very complicated hospital follow up. HOSPITAL/ER FOLLOW UP: Reason for visit: Went in to [facility] 03/20/23 for heart valve surgery. Suffered stroke during surgery. Which facility: [facility] Date of visit: 03/20/23-04/07/23 Discharged to [facility] rehab 04/07/23. Hospitalized for a couple days at [facility] for bowel obstruction. Diagnosis: Stroke Not all records available([place] records) Patient arrived late to appt and [...] now resolved. See below regarding his stroke. [facility] is to come soon. We believe they will be starting therapy. Just discharged from [place] on Monday. They apparently did an xray [...] meds for now. Has appt to see supervisor stitching department in [facility] this Monday so will hold on EKG today as recommended below. See previous discharge summary: [facility] Primary Pediatric Psychologist: Kiel Barnes MD, MS, [facility] Admission Diagnosis: Aorta Aneurysm Aortic Valve Stenosis Discharge Diagnosis: Aorta Aneurysm Aortic Valve Stenosis Reason for Hospitalization: Per [facility] note Mr. Catherine is a 62 year old male who is seen for cardiovascular medicine evaluation. He has planned aortic valve replacement for severe stenosis in the setting of bicuspid aortic valve next week. Heis limited on physical exertion secondary to shortness of breath and orthopedic back pain. Operations during Hospitalization: 03/20/2023: [facility] ([address] [place] [address]) and [facility] ([address] [place] [address]) Hospital Course: * How was the Reason [...] of 1.0. He was recently admitted to [facility] for a blister on the anterior [...] normal range. Malnutrition/ aspiration risk / Dysphagia: STATIONARY ENGINEER APPRENTICE consulted ->Failed swallow eval-> Corpak placed on 03/23, TF started. Evaluated by ENT 03/29: flexible laryngoscopy showed pooling of secretions in hypopharynx with skip aspiration, but bilateral TVC mobile and medialize well with phonation. No indication for injection medialization or other procedural intervention from ENT perspective, cont swall ow therapy w/ speech. 04/03 passed MBS L2 Mildly ([place]) Thick Liquids / L5 Minced and Moist [...] unstageable Discharge: 62 yr old male from [place], [place]. PT/OT/PMR recommend acute rehab. -AR planning, [...] Aorta, partial excision: -Atherosclerosis (grade of the [employer] [employer]). * Hospital Course Complicated by: [...] (03/22/2023) Mild CAD () Dilatation of aorta ([facility]) () Postoperative pain () Hypervolemia (03/21/2023) Hypernatremia (03/25/2023) Restrictive lung disease (11/12/2010) MANISH on CPAP (11/09/2012) Bicuspid aortic valve (11/09/2012) Hyperlipidemia (11/09/2012) Hypertension (11/09/2012) Bipolar 1 disorder ([facility]) (11/09/2012) Morbid obesity with BMI of 50.0-59.9, adult ([facility]) (11/09/2012) LVH (left ventricular hypertrophy) () Severe aortic stenosis (08/10/2018) GERD without esophagitis (10/23/2021) Peripheral vascular disease ([facility]) (12/06/2022) Chronic back pain (09/28/2022) Chronic obstructive pulmonary disease ([facility]) (10/11/2022) Class 3 severe obesity with body mass index (BMI) of 50.0 to 59.9 in adult ([facility]) (02/21/2023) Discharge planning issues (03/16/2023) Chronic diastolic heart failure ([facility]) (03/16/2023) Dysphagia (03/22/2023) Arterial ischemic stroke, MCA (middle cerebral artery), left, acute ([facility]) (03/22/2023) Open wound of left great toe (03/22/2023) Alteration in skin integrity due to moisture (03/22/2023) Skin tear of upper extremity (03/22/2023) Pressure injury of sacral region, unstageable ([facility]) (03/22/2023) Impaired gait and mobility (03/24/2023) Right arm weakness (03/24/2023) Coordination impairment (03/24/2023) Alteration in self-care ability (03/24/2023) Insulin dose changed ([facility]) (03/24/2023) Type 2 diabetes mellitus with hyperglycemia, with long-term current use of insulin ([facility]) (03/24/2023) Nicotine use disorder, F17.2 (03/27/2023) Dysarthria (03/27/2023) Primary sleep apnea of (03/28/2023) Pressure injury of coccygeal region, unstageable ([facility]) (04/03/2023) Cognitive communication deficit (04/04/2023) Slurred speech (04/05/2023) Right hemiparesis ([facility]) (04/05/2023) On tube feeding diet (04/06/2023) [...] with you. 3. Follow up with your Pediatric Psychologist within 4 weeks. Mr. Catherine was offered an appointment with a [facility] Pediatric Psychologist. He accepted and a follow up appointment [...] Diagnosis Date Acute ischemic left MCA stroke ([facility]) 03/22/2023 Anxiety Aortic valve stenosis, nonrheumatic Atrial septal defect and mitral stenosis Bicuspid aortic valve Bipolar 1 disorder ([facility]) Chronic obstructive pulmonary disease (COPD) ([facility]) Coronary artery disease Degenerative disc disease sees Dr. Sellers Diabetic neuropathy ([facility]) DM (diabetes mellitus) ([facility]) HTN (hypertension) Hyperkalemia Hyperlipidemia Hypogonadism male LVH (left ventricular hypertrophy) Morbid obesity ([facility]) MANISH on CPAP Pain management Dr. [...] Disease Brother other (Myocardial infarc) Brother Fatal SC No Ocular Disease No Family History Social [...] better. Alyson Arthur MD documented in this encounterNewark Hospital04-06-2024 Note Discharge Instructions Thank you for [...] Appointments Appointment Type When Where Contact InformationCV DIGITAL ACCOUNT DIRECTOR 05/26/2023 01:30 PM EDT [facility] Follow Up Appointments Follow Up with KIRK BARCENAS MD When 05/26/2023 01:30 PM EDT Why: Cardiology - Where: [address] [facility] [place] [address]- Follow Up with ALYSON ARTHUR MD When 05/22/2023 09:00 AM EDT Why: Take Discharge Instructions to Dr Visit - Where: [facility] [address] [place] [address]- [phone] Follow Up with RICHARD ARSHAD MD, Surgery When Only if needed Why: General Surgeon - Where: [address] [facility] [address] [facility] [place] [address]- [phone] The Following Activity and Diet Have Been [...] - Ordered -- Must complete driving evaluation, [employer]riving Eval [phone] [place] [employer] Driving Eval [phone] [employer] Driving Eval [phone], and must be cleared by a physician [...] Ordered -- *Other specify in special instructions, month(s), Wheelchair Brake Extenders, 05/03/23 10:43:00 EDT Discharge Home Equipment - Ordered -- Bedside commode, ADL Limitiation: Room confined, month(s), Drop Arm Bariatric, patient hip width 26 accross. Provided by [facility] [phone], 05/18/23 11:47:00 EDT Discharge Home Equipment - Ordered -- Semi-electric hospital bed; HALF rails, month(s), Provided by [facility] [phone], 05/18/23 11:48:00 EDT Discharge Wound Care - [...] Therapy Instruction: Full weight bearing, Provided by [facility] [phone] Consult Home Health - RN - Ordered -- 05/20/23 13:16:00 EDT, Reason: Disease management Medication management Consult [facility] - Speech Therapy - Ordered -- 05/20/23 13:16:00 EDT, Home Therapy Order: Speech Eval & Treat, Reason: Cognitive assessment Allergies Flonase (Nosebleed) penicillin (Rash) Medications Please ask your primary doctor or pharmacist before taking any other medication not listed, including over the counter drugs, herbal medications, vitamins and or supplements as they may interact [facility]. What How Much When Instructions Last Dose New bumetanide (bumetanide 1 mg oral tablet) 2 tab(s) by mouth Two (2) times a day Pickup at [facility] New docusate-senna (Senokot S 50 mg-8.6 mg oral tablet) 2 tab(s) by mouth Two (2) times a day Pickup at [facility] [address] New glycerin (glycerin adult rectal suppository) 1 suppository(ies) in the rectum Every day as needed for Constipation New magnesium hydroxide (Milk of Magnesia) 30 Milliliter by mouth Daily at bedtime as needed for Constipation New melatonin 5 Milligram by mouth Daily at bedtime New miconazole topical (Desenex 2% topical powder) 1 application Topical Two (2) times a day Pickup at [facility] [address] New traMADol (traMADol 50 mg oral tablet) 1 tab(s) by mouth Every 4 hours as needed for Pain, scale 1-6 Changed docusate (Colace 100 mg oral capsule) 1 cap by mouth Two (2) times a day as needed for Constipation Changed insulin glargine (Lantus 100 units/ mL10 ml vial solution) 12 unit(s) Subcutaneous (INT) Daily before supper Pickup at [facility] Changed insulin isophane (NPH) (insulin isophane (NPH) human recombinant 100 units/ mL subcutaneoussuspension) 38 unit(s) Subcutaneous Every day Pickup at [facility] Changed pantoprazole (pantoprazole 40 mg oral enteric coated tablet) 40 Milligram by mouth Once a day Pickup at [facility] Changed polyethylene glycol 3350 (Miralax Powder Packet) by mouth Once a day as needed for Constipation Changed polyethylene glycol 3350 (polyethylene glycol 3350 oral powder for reconstitution) 17 gram(s) by mouth Every day Changed zinc oxide topical (zinc oxide 13% topical cream) 1 application Topical Two (2) times a day Pickup at [facility] Unchanged acetaminophen (acetaminophen 650 mg oral tablet, extended release) 1 tab(s) by mouth Two (2) times a day as needed for as needed for pain Unchanged albuterol (albuterol MDI (90 mcg/ inh) CFC free inhalation aerosol) 2 puff(s) by inhalation Every 4 hours as needed for as needed for wheezing Pickup at [facility] Unchanged amiodarone (amiodarone 200 mg oral tablet) 1 tab(s) by mouth Once a day Pickup at [facility] Unchanged amLODIPine (amLODIPine 5 mg oral tablet) 1 tab(s) Nasogastric Once a day Pickup at [facility] Unchanged apixaban (apixaban 5 mg oral tablet) 1 tab(s) by mouth Two (2) times a day Pickup at [facility] Unchanged atorvastatin (atorvastatin 10 mg oral tablet) 1 tab(s) by mouth Daily at bedtime Pickup at [facility] Unchanged budesonide-formoterol (Symbicort 80 mcg-4.5 mcg/ inh Inhaler) 2 puff(s) by inhalation Two (2) times a day Pickup at [facility] Unchanged guaiFENesin (guaiFENesin 100 mg/ 5 mL oral liquid) 10 Milliliter by mouth Every 6 hours as needed for as needed for cough Unchanged metoprolol (metoprolol tartrate 37.5 mg oral tablet) 1 tab(s) by mouth Two (2) times a day Pickup at [facility] Unchanged multivitamin with minerals (Centrum) 1 tab(s) by mouth Once a day Unchanged pregabalin (pregabalin 100 mg oral capsule) 1 cap by mouth Two (2) times a day Unchanged pregabalin (pregabalin 200 mg oral capsule) 1 cap by mouth Daily at bedtime Unchanged temazepam (Restoril 7.5 mg oral capsule) 2 cap by mouth Daily at bedtime as needed for Sleep Pharmacy Information [facility]: [address] [place], [place] [id number] [phone] What How Much When Comments Stop Taking [...] Keep items that you use often in talw-xs-lxkem places. Lower the shelves around your home [...] of the way. Do not use floor slovenian or wax that makes floors slippery. If [...] Disease Control and Prevention, STEADI: https://cdc.gov National [place] on Aging: https://oo1fkdz.bimal.nih.gov Contact a doctor if: You are afraid [...] 11/26/2009 Document Revised: 05/23/2019 Document Reviewed: 2017 Invidio Patient Education 2020 wise.io. Hospital Discharge After a Stroke Being discharged [...] depending on your insurance coverage. Check with your[employer]MeReach company about what is covered. Keeping follow-up [...] 05/05/2017 Document Revised: 02/02/2018 Document Reviewed: 05/05/2017 Invidio Patient Education 2020 Invidio Inc. Aortic Valve Stenosis Aortic valve stenosis [...] care provider who specializes in the heart (supervisor stitching department) for diagnosis and treatment. How is this [...] what medicines you take. General instructions Take sxcu-ine-wmhsmyl and prescription medicines only as told by [...] 10/29/2003 Document Revised: 01/12/2018 Document Reviewed: 11/02/2017 ElseBlayze Inc. Patient Education 2020 Invidio Inc. Daily Weight Record It is important [...] Document Reviewed: 01/29/2018 Elsevier Patient Education 2020 Invidio Inc. Daily Diabetes Record Check your blood [...] Document Reviewed: 10/28/2016 Elsevier Patient Education 2020 ElseBlayze Inc. Inc. Additional Information VACCINATE! IT SAVES LIVES! Members of the community who have not yet received the COVID-19 vaccine and would like to receive it can visit one of [facility] vaccine clinics. There are many vaccine clinic locations within the [facility]. For locations and available times, please visit https://gettheshot.coronavirus.[place].gov/. It is important to note that some COVID mobile vaccine clinics are held outdoors and may be canceled in rainy or stormy conditions. To learn more about pediatric vaccinations (ages 5-11), we invite you to visit the [facility] webpage. https://www.[facility].org/pages/8914-Matax-Jvyzrcvlezf-Sspyacgobb-Pqizz-Dce stions.htmlTo learn more about the COVID-19 vaccine, we invite you to visit the CDC website for a list of frequently asked questions.https://www.cdc.gov/coronavirus/2019-ncov/vaccines/faq.html [place] [facility] Patient Portal Access Instructions: Stay connected with your healthcare team and access your personal medical information anytime with the [facility] Patient Portal. Please follow the directions below to create your [facility] account: 1.Access the email account you provided upon registration to the hospital/physician office.2.Look for an invitation email from [facility].3.Open the email and access the invitation link: AcceptInvitation to [facility].4.Fill in the required sharp to create your account. To access your account, visit [employer]/RealDirectt. Click the blue button labeled Access Patient Portal and then log in with the username and password that you created in the steps above. You will be able to view your test results, lab results, a summary of your visits, upcoming appointments and more. There is also a convenient messaging option where you can send secure messages to your [employer]vider. In addition, you will have the ability to download any documents or summaries to your computer and/or send the information securely to a physician. Remember that your healthcare information is confidential, so carefully consider who you will allowto register on the [facility] Patient Portal for access to your information. You can also access the [facility] Patient Portal on the [facility] nan. Simply click on Patient Portal and then log into your account. If you would like to receive a full copy of your medical records, please contact the [facility] Medical Records Department by calling [phone], Monday through Monday between 8 a.m. and [...] Call your local pharmacy or go to http://bit.GooodJob/[email or web address] to find one close to you.3.Make use of household items: Use cat litter or old coffee grounds to dispose medications if other options arenot available. Mix your drugs with these household products, seal them in an airtight container andthrow it into the garbage. Call [facility]: [phone] to be sure your drugs can be [...] Materials Fall Prevention in the Home, Adult, Jdol-bp-Sjas Hospital Discharge After a Stroke Aortic Valve Stenosis Form - Daily Weight Record Form - Daily Diabetes Record Medication Leaflets My discharge plan and instructions have been reviewed and explained to me and IFLORIN MICHAEL understand my current condition and have read and understand these discharge instructions. I have received a written copy of the plan/instructions. If I have questions, I am aware that I should contact my doctor. Patient/Poiser Balance Signature: Date/Time: (more content not included)... [facility] [id number] Nurse Progress note Nursing GG Entered On: 05/20/2023 11:13 EDT Performed On: 05/20/2023 11:12 EDT by Bebeto Cruz RN Nursing GG's OT GG Grid Eating : Set up & Clean up Bebeto Cruz RN - 05/20/2023 11:12 EDT Digitally Signed by Bebeto Cruz RN on 05/20/2023 11:12 AM [facility] Note ORIGINAL EXAMINATION: ONE SUPINE XRAY VIEW(S) [...] 05/20/2023 9:47:55 AM Ordering Provider: JESUS MANUEL Diez [id number] Note ORIGINAL EXAMINATION: ONE SUPINE XRAY VIEW(S) [...] Date: 05/20/2023 12:35:35 AM Ordering Provider: HA ABBIEDarrel [id number] Nurse Progress note Nursing GG Entered On: 05/19/2023 17:38 EDT Performed On: 05/19/2023 17:38 EDT by Bebeto Cruz RN Nursing GG's OT GG Grid Eating : Set up & Clean up Bebeto Cruz RN - 05/19/2023 17:38 EDT Digitally Signed by Bebeto Cruz RN on 05/19/2023 05:38 PM [facility] [id number] Hospital Discharge instructions Patient Education 05/19/2023 12:41:41 Fall Prevention in the Home, Adult, Ohpj-nv-Bdzg Fall Prevention in the Home, Adult Falls [...] Keep items that you use often in cmzm-ee-mmzvo places. Lower the shelves around your home [...] of the way. Do not use floor slovenian or wax that makes floors slippery. If [...] for Disease Control and PreventionMOISÉS: https://cdc.gov National [place] on Aging: https://th9ardg.bimal.nih.gov Contact a doctor if: You are afraid [...] 11/26/2009 Document Revised: 05/23/2019 Document Reviewed: 2017 Invidio Patient Education 2020 Invidio Inc. 05/19/2023 12:41:35 Hospital Discharge After a Stroke [...] depending on your insurance coverage. Check with your[employer]MeReach company about what is covered. Keeping follow-up [...] 05/05/2017 Document Revised: 02/02/2018 Document Reviewed: 05/05/2017 Invidio Patient Education 2020 Invidio Inc. 05/19/2023 12:41:33 Aortic Valve Stenosis Aortic [...] care provider who specializes in the heart (supervisor stitching department) for diagnosis and treatment. How is this [...] what medicines you take. General instructions Take gruk-hbv-bnoerbd and prescription medicines only as told by [...] 10/29/2003 Document Revised: 01/12/2018 Document Reviewed: 11/02/2017 ElseBlayze Inc. Patient Education 2020 ElseBlayze Inc. Inc. 05/19/2023 12:41:17 Form - Daily Weight [...] 01/03/2005 Document Revised: 11/13/2018 Document Reviewed: 10/28/2016 ElseBlayze Inc. Patient Education 2020 Invidio Inc. Follow Up Care 04/27/2023 15:36:01 With:ALYSON ARTHUR MD Address: [facility] OF [facility] [address] [place] [address] [phone] When:05/22/2023 09:00:00 Comments:Take Discharge Instructions to Dr Visit - With:RICHARD ARSHAD MD, Surgery Address: [facility] [address] [facility] [place] [phone] When: only if needed Comments:General Surgeon - With:KIRK BARCENAS MD Address: [address] [place] [address] [address] [facility] [place] [address]- When:05/26/2023 13:30:00 Comments:Cardiology - [place] [facility] 04-05-2024 Nurse Progress note Nursing GG Entered On: 05/19/2023 14:14 EDT Performed On: 05/19/2023 14:13 EDT by Bebeto Cruz RN Nursing GG's OT GG Grid Eating : Set up & Clean up Bebeto Cruz RN - 05/19/2023 14:13 EDT Digitally Signed by Bebeto Cruz RN on 05/19/2023 02:13 PM [facility] [id number] Physical medicine and rehab Progress note Subjective [...] Neurological: Dysarthria, right upper extremity weakness VITALS TsmzmqJaalHBDhguoUDTqP3CWF2HkcnBg(kg) 05/18 05:2236.4--386907KJ01/55956.0 05/17 20:4436.8--496643GV57/97149.4 05/17 16:4336.7--288059MS76/53319.0 05/17 07:5436.5--307986GA 05/17 06:1035.9--731107DZ 24 Hr Tmax: 36.8 at 05/17 20:44 [...] 1 tab(s), Oral, qDay, 1st dose location: [facility], , 05/02/23 10:39:00 EDT amiodarone Start: [...] Problems (12) Acute ischemic left MCA stroke (4793274163) Aortic stenosis with bicuspid valve (091473464) Bipolar (536476020) Chronic back pain greater than three months duration (9661382656) COPD (chronic obstructive pulmonary disease) (46276626) Fall (0012570) Fever (3330828047) HLD (hyperlipidemia) (67214171) HTN (hypertension) ([id number]) Morbid obesity (983466853) Obesity ([id number]-O3A4268M4F7Z) Sleep apnea (00SB489P-[id number]) ASSESSMENT/PLAN: Severe aortic stenosis status post aortic [...] software and may contain typographical errors. Renae Bhagat RN, am scribing for , and in the presence of Dr. Miner. IDr. Miner, personally performed the services described in this documentation, as scribed by, Renae GUZMAN in my presence and it is both accurate and complete. Digitally Signed by BENJAMIN MINER DO on 05/19/2023 03:57 PM [id number] Podiatry Consult note Date of Service 05/08/2023 Reason for Consultation Footcare Referring Physician Dr. Becerril History of Present Illness Patient is a 62-year-old male consulted for footcare. He is admitted to [facility] for inpatient rehabilitation and medical management. Admitted to [facility] previously for CHF exacerbation and hypoxic respiratory [...] ALLISON SINGH DPM on 05/18/2023 03:47 PM [facility] VidalPrzfskta72-01-2107 Miscellaneous Notes* Telephone Encounter - Allison Omalley MA - 05/18/2023 2:00 PM EDT Nitza with [facility] informed Dr. Arthur will follow. Allison Omalley MA * Telephone Encounter - Alyson Arthur MD - 05/18/2023 12:14 PM EDT Ok to do * Telephone Encounter - Apple Allen RN - 05/18/2023 12:02 PM EDT Nitza from [facility] calls and states that patient is being discharged from [facility] on 05/20/2023. Nitza asking if provider willing to follow patient with orders for nursing home,physical therapy, occupational therapy, and home health aide. If agreeable please give Nitza a call back , extension [phone]. Thank you, Apple Allen RN documented in [facility] Note Subjective patient states he is [...] Neurological: Dysarthria, right upper extremity weakness VITALS XzflfpKxmtCAXnutfRPUpQ4TWV0KwnzPo(kg) 05/16 22:46----300337--61/06054.0 05/16 21:0336.7--607642NR07/68894.4 05/16 16:37----89----RA03/29218.0 05/16 16:3236.6--205566UM 05/16 07:5036.5--988649CG 24 Hr Tmax: 36.7 at 05/16 21:03 36 Hr Tmax: 36.7 at 05/16 21:03 [...] 1 tab(s), Oral, qDay, 1st dose location: [place] [address], 05/02/23 10:39:00 EDT amiodarone Start: 04/27/23 21:12:00 [...] x1., 04/27/23 21:21:00 EDT glucose Start: 04/27/23 21::00 EDT, Dose = 16 gram(s), = 4 [...] Problems (12) Acute ischemic left MCA stroke (5979360841) Aortic stenosis with bicuspid valve (349381077) Bipolar (937483272) Chronic back pain greater than three months duration (4436473896) COPD (chronic obstructive pulmonary disease) (51742945) Fall (4269330) Fever (6553208415) HLD (hyperlipidemia) (98826841) HTN (hypertension) (3192GQ2C-[id number]) Morbid obesity (005455833) Obesity (K3994Z44-7051-9T06-Z94O-U1T2861R7P3R) Sleep apnea (67OA903M-6UB2-0G79-T9P1-6B53RW77RH4T) ASSESSMENT/PLAN: Severe aortic stenosis status post aortic [...] software and may contain typographical errors. Renae Bhagat RN, am scribing for , and in the presence of Dr. Miner. I, Dr. Miner, personally performed the services described in this documentation, as scribed by, Renae GUZMAN in my presence and it is both accurate and complete. Digitally Signed by BENJAMIN MINER DO on 05/18/2023 02:17 PM [facility]Nwetluhh99-46-1391 Physical medicine and rehab Progress note Rehab [...] was sent to the emergency department from [place] [facility] rehabilitation unit with abdominal pain, vomiting, [...] Rate76(MAY 15 16:04)70(MAY 15 07:58)76(MAY 15 16:04) RSJ740(MAY 15 23:45)128(MAY 15 23:45)H 146(MAY 15 07:58) [...] reviewed and are up to date Wilder Bhagat LPN, am scribing for, and in the presence of Dr. Jone AGUILERA. IDr. Jone DO , personally performed the services described in this documentation, as described by Wilder Whitmore LPN in my presence and it is both accurate and complete. Digitally Signed by MALIA BECERRIL DO on 05/17/2023 01:16 PM [facility] VidalItzktpcn06-88-3887 Note Subjective Patient states he is doing [...] Neurological: Dysarthria, right upper extremity weakness VITALS HcydmuJhmyJSWxlkgVYQfB0CFZ7BvtoMe(kg) 05/15 23:4536.4--876186QU08/23842.4 05/15 20:3136.0--121080QG39/08058.0 05/15 16:04----76----RA03/35754.6 05/15 10:39 0.0L/m 05/15 08:18----70----RA 24 Hr [...] 1 tab(s), Oral, qDay, 1st dose location: [place] [address], 05/02/23 10:39:00 EDT amiodarone Start: 04/27/23 21:12:00 [...] Problems (12) Acute ischemic left MCA stroke (3008863583) Aortic stenosis with bicuspid valve (479400149) Bipolar (562694658) Chronic back pain greater than three months duration (4020323795) COPD (chronic obstructive pulmonary disease) (89887851) Fall (0988616) Fever (3018864556) HLD (hyperlipidemia) (73291660) HTN (hypertension) (1643SQ5I-[id number]) Morbid obesity (567302022) Obesity (T3780T21-3263-2O43-W51H-G8G1095X6Q7W) Sleep apnea (19BL540H-1FX5-2B88-I3K4-3W79MZ70GB7Y) ASSESSMENT/PLAN: Severe aortic stenosis status post aortic [...] software and may contain typographical errors. Jeannie Bhagat RN, am scribing for , and in the presence of Dr. Miner. I, Dr. Miner, personally performed the services described in this documentation, as scribed byJeannie RN in my presence and it is both accurate and complete. Digitally Signed by BENJAMIN MINER DO on 05/18/2023 09:11 AM [facility]Xkedytii71-32-4118 Physical medicine and rehab Progress note Rehab [...] was sent to the emergency department from [place] [facility] unit with abdominal pain, vomiting, [...] hrs)__Last Charted Minimum Maximum Temp36.4(MAY 15 01:30)36.4(MAY 15:30)36.6(MAY 14 16:25) Heart Rate75(MAY 14 16:42)74(MAY 14 09:19)75(MAY 14 16:42) CED628(MAY 14 16:25)124(MAY 14:19)126(MAY 14 16:25) DBPL 52(MAY 14:)L 52(MAY 14:25)60(MAY 14:19) Physical Exam: General: No acute distress. Appears [...] BECERRIL DO on 05/16/2023 01:11 PM [facility] RooneyKjwlcfug52-23-8783 Note Subjective Patient reports doing well this [...] Neurological: Dysarthria, right upper extremity weakness VITALS UtjoqcRyevVDQjrapJOQcH8QPW5HrfwPx(kg) 05/15 01:3036.4--750267--68/89885.0 05/14 16:42----75------19.6 05/14 16:2536.6--659576GM87/26646.0 05/14 10:10--------94RA 05/14 09:1936.2--754547UH 24 Hr Tmax: 36.6 at 05/14 16:25 [...] 1 tab(s), Oral, qDay, 1st dose location: [place] [address], 05/02/23 10:39:00 EDT amiodarone Start: 04/27/23 21:12:00 [...] Problems (12) Acute ischemic left MCA stroke (8606902301) Aortic stenosis with bicuspid valve (159148900) Bipolar (075665093) Chronic back pain greater than three months duration (5293285249) COPD (chronic obstructive pulmonary disease) (40443535) Fall (6211786) Fever (8744902597) HLD (hyperlipidemia) (97441009) HTN (hypertension) (3981LU1Y-[id number]-DBK286JY8481) Morbid obesity (791467515) Obesity (O5711O92-6895-2S49-B31N-D8E2639H7W8Y) Sleep apnea (78ET387S-9JR1-3H77-H6F2-7X15LG58IN6T) ASSESSMENT/PLAN: Severe aortic stenosis status post aortic [...] software and may contain typographical errors. Renae Bhagat RN, am scribing for , and in the presence of Dr. Miner. I, Dr. Miner, personally performed the services described in this documentation, as scribed by, Renae GUZMAN in my presence and it is both accurate and complete. Digitally Signed by BENJAMIN MINER DO on 05/18/2023 09:21 AM [facility]Tqgtrzsd58-84-9642 Cardiology Consult note Date of Service 05/14 Reason for Consultation AVR [facility] History of Present Illness This is a 62-year-old male with history of aortic stenosis and ascending aortic aneurysm status post AVR and root replacement. This was on [facility]. Postop was complicated by a stroke. He was also found to be in A-fib. He also had subsequent admission at [place] for small bowel obstruction. He had an [...] do not have these records, done in [facility] in March 2023. 2) atrial fibrillation -Completed amiodarone. Continue Eliquis and metoprolol. Rate controlled. Appears to be in sinus. 3) Pericardial effusion -Moderate. Likely postop changes. Will need a repeat echo, has an appointment with us in a few weeks. Though I'm unsure which cardiology group he's following, he was seeing [place] [facility] prior to all this. Patient' was [...] KATERINA SALDANA MD on 05/15/2023 04:22 PM [facility] VidalVblhfifj30-47-2985 Note ORIGINAL EXAMINATION: ONE SUPINE XRAY VIEW(S) [...] Date: 05/11/2023 9:31:37 AM Ordering Provider: ALLISON Escalantelawn03-26-2024 Note ORIGINAL EXAMINATION: CT OF THE ABDOMEN [...] Date: 05/09/2023 1:10:22 PM Ordering Provider: MALIA Vidal03-26-2024 Note ORIGINAL EXAMINATION: X-ray abdomen. TECHNIQUE: KUB, [...] Date: 05/09/2023 9:53:10 AM Ordering Provider: MALIA Vidal03-19-2024 Miscellaneous Notes * Telephone Encounter - Ned BurgessANALI - 05/02/2023 1:45 PM EDT Called and [...] will be coming from DME: [place] PH: [phone] FAX: [phone] Per they need rx and face sheet [...] pt. Pt is still an inpt at [facility]. not sure when he will released home. Pt will go back the rehabilitation for a little while per . She is trying to get everything ready for when he comes home. The bed needs to raise up and down, soft because of his bad back. Pt will need to call with [employer]. July Perez LPN documented in this encounterNewark [facility]03-15-2024 Evaluation + Plan note Extracted from: Title:Clinical Document Author:MALIA BECERRIL Date:04/28/23 Acute Inpatient Rehab Histor y and Physical Date of Service: 04/28/2023 Date of Admission: 04/27/2023 Attending Physician: Dr. Becerril Impairment Group 1.2 right body involved CVA, left brain Etiologic Diagnosis Left MCA infarct in posterior left frontal lobe Small bowel structure History of Present Illness 62-year-old male noted to [facility] rehab from [facility] stay 04/22 - [...] exacerbation. Patient deemed medically stable transferred to [place] inpatient rehab unit for physical and occupational [...] home with family, first-floor set up. 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 Safe place to go: Yes. Lives [...] Signs(Last 24 hrs)__Last Charted Minimum Maximum Temp36.8(APR 26:55)36.8(APR 26:55)36.8(APR 26:) Heart Rate82(APR 26:)82(APR 26:55)82(APR 26:) RXT586(APR 26)140(APR 26:)140(APR 26:) DBP64(APR 26)64(APR 26:55)64(APR 26:) No 36hr Lab Data Assessment/Plan Left MCA [...] medications reviewed and up to date Noni Bhagat RN, am scribing for, and in the presence of Dr. Jone Geronimo I, Dr. Jone Geronimo , personally performed the services described in this documentation, as described by Noni Martin RN in my presence and it is both accurate and complete accurate and complete. Future Appointments Appointment Date:05/26/2023 01:30:00 PM Scheduled Provider: Location:[facility] Appointment Type:CV DIGITAL ACCOUNT DIRECTOR [facility] [place] 03-15-2024 Physical medicine and rehab History and physical note Acute Inpatient Rehab History and Physical Date of Service: 04/28/2023 Date of Admission: 04/27/2023 Attending Physician: Dr. Becerril Impairment Group 1.2 right body involved CVA, left brain Etiologic Diagnosis Left MCA infarct in posterior left frontal lobe Small bowel structure History of Present Illness 62-year-old male noted to [place] inpatient rehab from [facility] stay 04/22 [...] exacerbation. Patient deemed medically stable transferred to [place] inpatient rehab unit for physical and occupational [...] home with family, first-floor set up. 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 Safe place to go: Yes. Lives [...] Rate82(APR 26 19:55)82(APR 26 19:55)82(APR 26 19:55) UYL601(APR 26 19:55)140(APR 26 19:55)140(APR 26 19:55) DBP64(APR [...] medications reviewed and up to date Noni Bhagat RN, am scribing for, and in the presence of Dr. Jone Koehler D.O., D.O. , personally performed the services described in this documentation, as described by Nnoi Martin RN in my presence and it is both accurate and complete accurate and complete. Digitally Signed by MALIA BECERRIL DO on 04/28/2023 12:22 PM [facility] [facility] medicine and rehab Consult note INPATIENT REHAB MEDICAL CONSULT DATE OF ADMISSION: 04/27/2023 CC: SBO, AVR ascending repair, L MCA infarct HISTORY OF PRESENT ILLNESS: This is a 62-year-old male admitted to [facility] rehab unit for [facility] stay 04/22 [...] initiated. Patient deemed medically stable transferred to [place] inpatient rehab unit for physical and occupational [...] 19:55)36.8(APR 26 19:55)36.8(APR 26 19:55) Heart Rate82(APR 26:55)82(APR 26 19:55)82(APR 26 19:55) QVH321(APR 26:55)140(APR 26 19:55)140(APR 26 19:55) DBP64(APR 26:55)64(APR 26 19:55)64(APR 26 19:55) REVIEW OF SYSTEMS: [...] will follow during acute rehabilitation stay at [facility] with the goal of returning to a more independentliving status at the conclusion of the stay. Medications reviewed and up to date This document was transcribed using dictation software and may contain typographical errors. IRenae RN, am scribing for , and in the presence of Dr. Miner. I, Dr. Minre, personally performed the services described in this documentation, as scribed by, Renae GUZMAN in my presence and it is both accurate and complete. Digitally Signed by BENJAMIN MINER DO on 05/04/2023 09:22 AM [facility]Puwxvrlk66-68-6184 Hospital Discharge instructions Patient Education 04/27/2023 18:39:47 Bowel Obstruction, Cnbi-mx-Pcfl Bowel Obstruction A bowel obstruction means that [...] Follow these instructions at home: Medicines Take rspe-tpf-gcnelgq and prescription medicines only as told by [...] keep your pee (urine) pale yellow. ?Take nrol-xph-cqsuebk or prescription medicines. ?Eat foods that are [...] 03/09/2005 Document Revised: 06/13/2018 Document Reviewed: 06/13/2018 [employer] Patient Education 2020 [employer] Follow Up Care 04/23/2023 05:16:22 With:[facility], Address:Unknown When:1-2 days With:ALYSON ARTHUR Address: [facility] [address] [place] [address] [phone] Business (1) When:1-2 days [facility] 03-14-2024 Note Discharge Instructions Thank you for allowing [place] to assist you with your healthcare needs. [...] Follow Up Appointments Follow Up with [facility], When Within 1-2 days Follow Up with ALYSON ARTHUR When Within 1-2 days Where: [facility] [address] [place] [address] [phone] Business (1) The Following Activity and Diet [...] times a day Refills: 2 Pickup at [facility] Changed insulin lispro (HumaLOG) (insulin lispro [...] Two (2) times a day Pharmacy Information [facility]: [address], [place] [phone] What How Much When Comments Stop Taking [...] Follow these instructions at home: Medicines Take jwlz-vxo-ndatemh and prescription medicines only as told by [...] your pee (urine) pale yellow. ? Take xhng-aef-ybdwduj or prescription medicines. ? Eat foods that [...] 03/09/2005 Document Revised: 06/13/2018 Document Reviewed: 06/13/2018 [employer] Patient Education 2020 Elsevier Inc. Additional Information VACCINATE! IT SAVES LIVES! Members of the community who have not yet received the COVID-19 vaccine and would like to receive it can visit one of [facility] vaccine clinics. There are many vaccine clinic locations within the [facility]. For locations and available times, please visit https://gettheshot.coronavirus.[place].gov/. It is important to note that some COVID mobile vaccine clinics are held outdoors and may be canceled in rainy or stormy conditions. To learn more about pediatric vaccinations (ages 5-11), we invite you to visit the [facility] webpage. https://www.Gucashs.org/pages/5685-Lvank-Junqatespem-Hcxbhoajmf-Housg-Ouq stions.htmlTo learn more about the COVID-19 vaccine, we invite you to visit the CDC website for a list of frequently asked questions.https://www.cdc.gov/coronavirus/2019-ncov/vaccines/faq.html [employer] Patient Portal Access Instructions: Stay connected with your healthcare team and access your personal medical information anytime with the [employer] Patient Portal. Please follow the directions below to create your [employer] account: 1.Access the email account you provided upon registration to the hospital/physician office.2.Look for an invitation email from [facility].3.Open the email and access the invitation link: AcceptInvitation to [facility].4.Fill in the required sharp to create your account. To access your account, visit Sharethrough/[email or web address]. Click the blue button labeled Access Patient [...] who you will allowto register on the [employer] Patient Portal for access to your information. You can also access the [facility] Patient Portal on the [place] Anywhere nan. Simply click on Patient Portal and then log into your account. If you would like to receive a full copy of your medical records, please contact the [facility] Medical Records Department by calling [phone], Monday through Monday between 8 a.m. and [...] Call your local pharmacy or go to [email or web address] [email or web address] to find one close to you.3.Make use of household items: Use cat litter or old coffee grounds to dispose medications if other options arenot available. Mix your drugs with these household products, seal them in an airtight container andthrow it into the garbage. Call [facility]: [phone] to be sure your drugs can be [...] COPY. Signatures Patient Education Materials Bowel Obstruction, Xmer-ce-Ypuz Medication Leaflets My discharge plan and instructions have been reviewed and explained to me and I,KIEL CATHERINE understand my current condition and have read and understand these discharge instructions. I have received a written copy of the plan/instructions. If I have questions, I am aware that I should contact my doctor. Patient/Poiser Balance Signature: Date/Time: Relationship to Patient: Witness Name/Signature: Date/Time: [facility] Discharge summary Date of Service 04/27/2023 Discharge [...] (J44.9 - ICD-10-CM) Atherosclerotic heart disease of [place] coronary artery without angina pectoris (I25.10 - ICD-10-CM) Bipolar disorder, unspecified (F31.9 - ICD-10-CM) Hypertensive heart disease with heart failure (I11.0 - ICD-10-CM) Hyperlipidemia, unspecified (E78.5 - ICD-10-CM) Obstructive sleep apnea (adult) (pediatric) (G47.33 - ICD-10-CM) Anemia, unspecified (D64.9 - ICD-10-CM) Sleep apnea, unspecified (G47.30 - ICD-10-CM) Unspecified atrial fibrillation (I48.91 - ICD-10-CM) Abdominal pain ([id number] - PNED) Bowel obstruction (K56.7 - ICD-10-CM) Fever ([id number] - PNED) Fever (R50.9 - ICD-10-CM) Additional Orders: Other status: Chest XR 1 View (Portable),04/27/23 9:51:00 EDT, 04/27/23 9:51:00 EDT, Routine, SOB, Full code, Portable: Yes, MTT with Monitor, Isolation: None, IV: No, Oxygen: Yes, Diabetes: Yes, : N/A, Wt k.3, [facility], ME6N(Complete) Ordered: Discharge,04/27/23 15:05:00 EDT, Discharged to: [facility] Ordered: Discharge Activity,As instructed by therapy, 04/27/23 15:05:00 EDT Ordered: Discharge Diet,04/27/23 15:05:00 EDT Ordered: Transfer of Care Activity,Activity As Tolerated, 04/27/23 15:06:00 EDT Ordered: Transfer of Care Code Status,Full Code, Constant Order Ordered: Transfer of Care Diet,04/27/23 15:06:00 EDT Ordered: Transfer of Care Orders Electronically Signed By,04/27/23 15:06:00 EDT, URMILA GARCÍA MD Ordered: Transfer of Care Prognosis,Fair, Patient Aware: Yes Ordered: Transfer of Care Rehab Potential,Rehab potential fair, 04/27/23 15:06:40 EDT Ordered: apixaban 5 mg oral tablet,Dose : 5 mg = 1 tab(s), Oral, BID, # 60 tab(s), 2 Refill(s), Pharmacy: [facility], 155, cm, 04/23/23 12:45:00 EDT, Height, 123.3, kg, 04/23/23 12:45:00 EDT, Dosing Weight Hospital Course 62-year-old male with a past medical history of status post AVR at [facility] on 03/20/2023, did have a postoperative MCA infarct resulting in R-sided weakness, dysphagia, dysarthria. Also with a history of type 2 diabetes, COPD, CAD, hypertension, hyperlipidemia, heart failure with preserved ejection fraction, and MANISH. Patient was [facility] for inpatient rehab from [facility]. Was sent to the ER on 04/23/2023 [...] [facility] who recommended that we could start anticoagulation based on stable CT images. Apparently the patient had gone into A-fib with RVR after his surgery at [facility], anticoagulation was not started because of his recent stroke. He tolerated anticoagulation here in the hospital. Patient was diuresed intravenously because of concern for heart failure, he was switched back to oral Lasix before being discharged from hospital Patient discharged back to [facility]. Allergies Flonase (Nosebleed) penicillin (Rash) Consults No [...] as needed as needed for cough. insulin adcchgff93 unit(s) Subcutaneous daily before supper. insulin isophane (NPH)38 unit(s) Subcutaneous every day. metoprolol (metoprolol tartrate 37.5 mg oral tablet)1 tab(s) Nasogastric two (2) times a day. multivitamin with minerals (Centrum)1 tab(s) Nasogastric once a day. fosuukpadfgn96 Milligram Nasogastric once a day. polyethylene glycol [...] patch)2 patch(es) Topical once a day. magnesium nnkzurbig92 Milliliter Nasogastric every 6 hours as needed [...] at bedtime. [facility]2 [facility] Follow Up with ALYSON ARTHUR When Within 1-2 days Where: [facility] [address] [place] [address] [phone] Business (1) Follow Up Appointments No qualifying [...] GARCÍA MD on 04/27/2023 04:33 PM [facility] HospitalXmqnkjia73-83-0548 Note ORIGINAL EXAMINATION: ONE XRAY VIEW OF [...] Date: 04/27/2023 10:19:36 AM Ordering Provider: URMILA [facility]03-13-2024 Note Date of Service 04/26/2023 Chief Complaint Abdominal pain, shortness of breath Subjective 62-year-old male with a past medical history of status post AVR at [facility] on 03/20/2023, did have a postoperative MCA infarct resulting in R-sided weakness, dysphagia, dysarthria. Also with a history of type 2 diabetes, COPD, CAD, hypertension, hyperlipidemia, heart failure with preserved ejection fraction, and MANISH. Patient was transferred to [facility] on 04/08/2023 for inpatient rehab from [facility]. Was sent to the ER on 04/23/2023 [...] is not new since being discharged from [facility]. No hemorrhage. Will start anticoagulation [...] diet recommendations that he was receiving at [facility] Recent left MCA infarct resulting in right-sided weakness, dysarthria, dysphagia. Repeat CT head demonstrating subacute posterior left frontal lobe infarct, this is not new since being discharged from [facility]. Due to history of postoperative paroxysmal A-fib, will start anticoagulation. Recent AVR at [facility], did have some postoperative A-fib. Continue amiodarone. [...] KIEL SAINZ on 04/26/2023 12:51 PM [facility]Gqvcylgv86-41-6076 Respiratory therapy Hospital Progress note Respiratory Therapy [...] WILLEM Rubio on 04/26/2023 07:36 AM [facility] HospitalExyxkesh80-89-4473 NoteATRIAL FIBRILLATION CONSIDER ANTERIOR INFARCT Electronic Signature: DANIELE JAMES MD 04/27/2023 22:39:[address] [place] [address] 03-12-2024 Note ORIGINAL EXAMINATION: CT OF THE [...] Date: 04/25/2023 4:14:42 PM Ordering Provider: KIEL [facility]03-12-2024 Note Date of Service 04/25/2023 Chief Complaint weakness Subjective 62-year-old male with a past medical history of status post AVR at [facility] on 03/20/2023, did have a postoperative MCA infarct resulting in R-sided weakness, dysphagia, dysarthria. Also with a history of type 2 diabetes, COPD, CAD, hypertension, hyperlipidemia, heart failure with preserved ejection fraction, and MANISH. Patient was transferred to [facility] on 04/08/2023 for inpatient rehab from [facility]. Was sent to the ER on 04/23/2023 [...] diet recommendations that he was receiving at [facility] Recent left MCA infarct resulting in right-sided weakness, dysarthria, dysphagia. Repeat CT head toevaluate petechial hemorrhage, if stable will start Eliquis. Recent AVR at [facility], did have some [...] KIEL SAINZ on 04/25/2023 01:17 PM [facility] HospitalYsbkivlc47-19-3108 Surgery Hospital Progress note Date of Service [...] to small bowel obstruction. Patient previously in [facility] secondary to patient's severe aortic stenosis statuspost AVR with ascending repair on 06/2023 at [facility] with postop left MCA infarct resulting in [...] his diet that he was receiving at [facility] which appears to be minced/moist with [...] MIC LA on 04/25/2023 08:16 AM [facility] [id number] Surgery Hospital Progress note Date of Service [...] to small bowel obstruction. Patient previously in [facility] secondary to patient's severe aortic stenosis statuspost AVR with ascending repair on 06/2023 at [facility] with postop left MCA infarct resulting in [...] his diet that he was receiving at [facility] which appears to be minced/moist with [...] MIC LA on 04/25/2023 08:16 AM [facility] HospitalAmpqnjax50-04-8790 Note Date of Service 04/24/2023 Chief Complaint weakness Subjective 62-year-old male with a past medical history of status post AVR at [facility] on 03/20/2023, did have a postoperative MCA infarct resulting in R-sided weakness, dysphagia, dysarthria. Also with a history of type 2 diabetes, COPD, CAD, hypertension, hyperlipidemia, heart failure with preserved ejection fraction, and MANISH. Patient was transferred to [facility] on 04/08/2023 for inpatient rehab from [facility]. Was sent to the ER on 04/23/2023 [...] fraction, was on Lasix twice daily at [facility], restart this. Dysphagia, continue diet recommendations that he was receiving at [facility] Recent left MCA infarct resulting in right-sided weakness, dysarthria, dysphagia. Restart baby aspirin and statin Recent AVR at [facility], did have some postoperative A-fib. Continue amiodarone. Type 2 diabetes, started on clear liquid diet. Start Lantus that he was taking at [facility], 16 units nightly. Hold NPH. Start Humalog 5 units 3 times daily Hypertension, continue home medications Hyperlipidemia, continue statin CODE STATUS: Full code Discussed with patient at the bedside, attempted to update family over the phone, no answer. Discussed with Dr. Warren Digitally Signed by KIEL SAINZ on 04/24/2023 12:37 PM [facility] HospitalVresmsiw64-79-6167 Note Date of Service 04/24/2023 Chief Complaint weakness Subjective 62-year-old male with a past medical history of status post AVR at [facility] on 03/20/2023, did have a postoperative MCA infarct resulting in R-sided weakness, dysphagia, dysarthria. Also with a history of type 2 diabetes, COPD, CAD, hypertension, hyperlipidemia, heart failure with preserved ejection fraction, and MANISH. Patient was transferred to [facility] on 04/08/2023 for inpatient rehab from [facility]. Was sent to the ER on 04/23/2023 [...] fraction, was on Lasix twice daily at [facility], restart this. Dysphagia, continue diet recommendations that he was receiving at [facility] Recent left MCA infarct resulting in right-sided weakness, dysarthria, dysphagia. Restart baby aspirin and statin Recent AVR at [facility], did have some postoperative A-fib. Continue amiodarone. Type 2 diabetes, started on clear liquid diet. Start Lantus that he was taking at [facility], 16 units nightly. Hold NPH. Start Humalog 5 units 3 times daily Hypertension, continue home medications Hyperlipidemia, continue statin CODE STATUS: Full code Discussed with patient at the bedside, attempted to update family over the phone, no answer. Discussed with Dr. Warren Digitally Signed by KIEL SAINZ on 04/24/2023 12:37 PM [facility] HospitalUaceiwgp08-11-7404 Note* Exam Date Time Procedure Performing Provider [...] 07, 2022 11:53 AM [facility] Note Date of Service 04/24/2023 Chief Complaint weakness Subjective 62-year-old male with a past medical history of status post AVR at [facility] on 03/20/2023, did have a postoperative MCA infarct resulting in R-sided weakness, dysphagia, dysarthria. Also with a history of type 2 diabetes, COPD, CAD, hypertension, hyperlipidemia, heart failure with preserved ejection fraction, and MANISH. Patient was transferred to [facility] on 04/08/2023 for inpatient rehab from [facility]. Was sent to the ER on 04/23/2023 [...] fraction, was on Lasix twice daily at [facility], restart this. Dysphagia, continue diet recommendations that he was receiving at [facility] Recent left MCA infarct resulting in right-sided weakness, dysarthria, dysphagia. Restart baby aspirin and statin Recent AVR at [facility], did have some postoperative A-fib. Continue amiodarone. Type 2 diabetes, started on clear liquid diet. Start Lantus that he was taking at [facility], 16 units nightly. Hold NPH. Start Humalog 5 units 3 times daily Hypertension, continue home medications Hyperlipidemia, continue statin CODE STATUS: Full code Discussed with patient at the bedside, attempted to update family over the phone, no answer. Discussed with Dr. Warren Digitally Signed by KIEL SAINZ on 04/24/2023 12:37 PM [facility] HospitalNkupcrsz60-83-3179 Note Date of Service 04/24/2023 Reason for Consultation Admission From: F Consult Skin Team re: Pressure Staging - [...] Skin Team on 04/24/2023 11:26 AM [facility] HospitalYbiuoyxf66-50-8036 Note ORIGINAL EXAMINATION: ONE SUPINE XRAY VIEW(S) [...] Date: 04/24/2023 11:17:01 AM Ordering Provider: ARIA MCALLISTERSumma HealthSretssug81-86-7698 Surgery Hospital Progress note Date of Service [...] post recent aortic valve replacement at the [facility] with postoperative stroke who presents [...] ARSHAD MD on 04/24/2023 08:07 AM [facility] HospitalBnjjucko78-30-1292 Note ORIGINAL EXAMINATION: ONE SUPINE XRAY VIEW(S) [...] Date: 04/23/2023 7:50:33 PM Ordering Provider: ALYSON [facility]03-10-2024 Note ORIGINAL EXAMINATION: ONE SUPINE XRAY VIEW(S) [...] Sign Date: 04/23/2023 6:05:14 PM Ordering Provider: [facility]03-10-2024 Respiratory therapy Hospital Progress note Respiratory Therapy [...] Downey RRT on 04/23/2023 02:20 PM [facility] HospitalRxcerhqt57-80-1962 History and physical note [place] [facility] MedicineHistory and Physical Code Status: Full Code Chief Complaint Chief Complaint: Per ems and patient complaints of severe abdominal pain and fevers since Monday. (04/23/23 05:46:00) History of present illness: 62-year-old gentleman with a past medical history of severe aortic stenosis s/p AVR with ascending repair on 03/20/2023 at [facility], postop left MCA infarct resulting in left-sided weakness and right upper extremity weakness as well as dysphagia/dysarthria. Patient also with history of type 2 diabetes mellitus, morbid obesity, COPD, CAD, bipolar, hypertension, hyperlipidemia, MANISH, diastolic CHF. After patient's aortic valve replacement he was transferred to [facility] for inpatient rehab on 04/08/2023. Patient was later sent to the emergency department for evaluation of abdominal pain and fevers. States that his last bowel movement was around 4 to 5 days ago and his symptoms have been progressing since that time. Patient also states that he is typically not on oxygen but has been on 2 L nasal cannula at [facility] since yesterday. On presentation the ED he [...] AVR with ascending repair on 03/20/2023 at [facility] 8. Postop left MCA infarct resulting in [...] proBNP is up from 621->1670 from at [facility] Will give dose of IV lasix 40 mg and monitor response given NPO status at this time Defer further IVF currently given volume status Echocardiogram given patient's new onset atrial fibrillation as well as moderate pericardial effusion on CT, hx of AVR Continue monitoring electrolytes closely given NPO status and diuretic Digitally Signed by ALYSON WARREN DO on 04/23/2023 12:11 PM [facility] HospitalGtdtujwe99-76-2468 Surgery Consult note Date of Service 04/23/2023 [...] Of note, he is currently residing at [facility] for rehabilitation following a stroke.CT scan imaging [...] who presented to the emergency department (from [facility]) on 04/23/2023 with concerns of diffuse abdominal [...] q4h, PRN nystatin 100,000 units/mL oral suspension, [id number] unit(s)= 5 mL, Oral, QID pantoprazole, 40 [...] ETHAN BOLES on 04/23/2023 10:46 AM [facility] HospitalGbpzorlk14-68-5030 Surgery Consult note Date of Service 04/23/2023 [...] Of note, he is currently residing at [facility] for rehabilitation following a stroke. CT scan imaging of the abdomen pelvis was obtained showing evidence of a mechanical small bowel obstruction, the precise level of obstruction and underlying etiology was not clearly evident and he had a short segment of small bowel that had adjacent mesenteric stranding and likely mild pneumatosisper the interpretation. His laboratory data was negative [...] who presented to the emergency department (from [facility]) on 04/23/2023 with concerns of diffuse abdominal [...] q4h, PRN nystatin 100,000 units/mL oral suspension, 169181 unit(s)= 5 mL, Oral, QID pantoprazole, 40 [...] ETHAN BOLES on 04/23/2023 10:46 AM [facility] HospitalTgryusyn88-35-1086 Surgery Consult note Date of Service 04/23/2023 [...] Of note, he is currently residing at [facility] for rehabilitation following a stroke.CT scan imaging [...] who presented to the emergency department (from [facility]) on 04/23/2023 with concerns of diffuse abdominal [...] q4h, PRN nystatin 100,000 units/mL oral suspension, 755903 unit(s)= 5 mL, Oral, QID pantoprazole, 40 [...] ETHAN BOLES on 04/23/2023 10:46 AM [facility] HospitalGwktmjok05-23-1340 Note ORIGINAL EXAMINATION: CT OF THE ABDOMEN [...] require dedicated imaging and follow-up. Interpreted by: hSaheen Valdivia MD Preliminary Report By: Shaheen Valdivia MD Electronically signed By Shaheen Valdivia MD Dictated Date: 04/23/2023 8:56:36 AM Prelim Date: 04/23/2023 9:05:46 AM Sign Date: 04/23/2023 9:05:46 AM Ordering Provider: [facility]03-10-2024 Note ORIGINAL EXAMINATION: ONE XRAY [...] Date: 04/23/2023 7:38:17 AM Ordering Provider: LILY [facility]03-10-2024 NoteSINUS RHYTHM CONSIDER ANTERIOR INFARCT ABNORMAL T, CONSIDER ISCHEMIA, LATERAL LEADS Electronic Signature: LILY JEFFERSON 04/23/2023 06:34:03[facility] 03-10-2024 Note [facility] ED Transition Communication Entered On: 04/23/2023 4:12 EDT Performed On: 04/23/2023 4:05 EDT by Estelle Clemons LPN [facility] ED Transition Communication Code Status Order Detail : Full code [facility] Admission Diagnosis : AVR REPAIR, LEFT MCA [...] disorder with diagnostics. Provider Contact Number : [phone] Family Member Notified : Gissell Family Member Contact Information : [phone] Estelle Clemons LPN - 04/23/2023 4:05 EDT [...] THOMAS MATTA; Reviewed Date: 04/06/2023 11:30 EST [facility]-5784 Nurse Progress note Pt refused dinner. did eat a cup of kinyarwanda yogurt with meds. continue to have nausea. took Zofran and Percocet. lethargic but awakes easily and follows simple commands. answers questions appropriately. Digitally Signed by THOMAS Quintanilla on 04/21/2023 06:01 PM [facility] Owpimiuu93-34-7980 Nurse Progress note Nursing GG Entered On: [...] by THOMAS Vela on 04/21/2023 11:31 AM [facility]ulwjvsv[facility]38 Nurse Progress note Clinicals faxed to [employer] and fax confirmation was received. Digitally Signed by THOMAS Davenport on 04/21/2023 09:19 AM [facility] [id number] Note Subjective Patient tells me he is [...] or bladder distention Neurological: Dysarthria, unchanged VITALS EcesvfEpxfLLIycegUZLxA0HWO9NafkXv(kg) 04/19 21:00----73--93--44967.6 04/19 17:49----72------56385.6 04/19 17:29----232649VC54/51947.6 04/19 14:56----209582SA03/94763.2 04/19 09:46----146103WQ 24 Hr Tmax: 36.6 at 04/19 07:55 [...] 2 mL, Inhalation, qDayRT, 1st dose location: [facility], , 04/07/23 18:26:00 EST bumetanide (Bumex) Start: 04/18/23 [...] Problems (10) Acute ischemic left MCA stroke (9776368874) Aortic stenosis with bicuspid valve (829086164) Bipolar (450904711) Chronic back pain greater than three months duration (5073899391) COPD (chronic obstructive pulmonary disease) (17949042) HLD (hyperlipidemia) (82419051) HTN (hypertension) ([id number]) Morbid obesity (953504904) Obesity ([id number]-Z69O-J7U7547K1A8T) Sleep apnea ([id number]) ASSESSMENT/PLAN: Severe aortic stenosis status post aortic [...] software and may contain typographical errors. Renae Bhagat RN, am scribing for , and in the presence of Dr. Miner. I, Dr. Miner, personally performed the services described in this documentation, as scribed byRenae RN in my presence and it is both accurate and complete. Digitally Signed by BENJAMIN MINER DO on 04/23/2023 12:27 PM [facility]Ehnvlswf[facility] Physical medicine and rehab Progress note Rehab Note Chief Complaint: Seeing this patient for reevaluation therapy progress and left MCA infarct, fall History of Present Illness: Seeing this patient for reevaluation therapy progress and left MCA infarct. Patient participates in acute inpatient rehabilitation with PT, OT and ST services. 46-shdm-igimfvf who presented to the hospital for planned [...] Rate76(APR 18 16:02)76(APR 18 09:25)76(APR 18 09:25) VOQ803(APR 19 01:33)112(APR 18 09:05)128(APR 19 01:33) DBP70(APR [...] reviewed and are up to date Wilder Bhagat LPN, am scribing for, and in the presence of Allison Johns , personally performed the services described in this documentation, as described by Wilder Whitmore LPN in my presence and it is both accurate and complete. Digitally Signed by ALLISON KHANNA on 04/20/2023 09:32 PM [facility] VidalShgyteks01-95-5657 Note Subjective Patient relates he is doing [...] or bladder distention Neurological: Dysarthria, unchanged VITALS PyavdbLeuxRUErgkjNCLfT6FNY4XeqdHa(kg) 04/19 01:3336--743264ZY84/37497.6 04/18 22:43----663100KN73/61392.6 04/18 22:41----226721GT74/65829.6 04/18 20:4436.5--778018BB89/17735.2 04/18 17:29----283697CG90/40457.6 24 Hr Tmax: 36.5 at 04/18 20:44 [...] 2 mL, Inhalation, qDayRT, 1st dose location: [place] [address], 04/07/23 18:26:00 EST bumetanide (Bumex) Start: 04/18/23 [...] Problems (10) Acute ischemic left MCA stroke (1934179481) Aortic stenosis with bicuspid valve (357883115) Bipolar (331009390) Chronic back pain greater than three months duration (3243087845) COPD (chronic obstructive pulmonary disease) (91243113) HLD (hyperlipidemia) (81030941) HTN (hypertension) ([id number]) Morbid obesity (957002783) Obesity ([id number]-S15X-Z6Y8684Y3Q8M) Sleep apnea (86HG062Z-[id number]) ASSESSMENT/PLAN: Severe aortic stenosis status post aortic [...] software and may contain typographical errors. Renae Bhagat RN, am scribing for , and in the presence of Dr. Miner. I, Dr. Miner, personally performed the services described in this documentation, as scribed byRenae RN in my presence and it is both accurate and complete. Digitally Signed by BENJAMIN MINER DO on 04/23/2023 12:34 PM [facility]vl[facility]24 Physical medicine and rehab Progress note Rehab Note Chief Complaint: Seeing this patient for reevaluation therapy progress and left MCA infarct, fall History of Present Illness: Seeing this patient for reevaluation therapy progress and left MCA infarct. Patient participates in acute inpatient rehabilitation with PT, OT and ST services. 27-shyd-ghgddwa who presented to the hospital for planned [...] 24 hrs)__Last Charted Minimum Maximum Heart Rate76(APR 17:18)74(APR 17 09:18)76(APR 17:18) DYE710(APR 18 00:00)100(APR 17:18)120(APR 17:18) DBP62(APR 18 00:00)L 56(APR 17:18)64(APR 17:18) Physical Exam: General: Appears chronically ill, no acute distress Respiratory: Clear decreased at bases. O2 per nasal cannula. Cardiovascular: No murmur noted Arterial: Good distal pulses Edema: 1 out of 4 pretibial edema bilaterally. No calf tenderness. Musculoskeletal: 4/5 left lower extremity strength 2/5 right lower extremity strength Normal senior database programmer strength left. 0 right Normal shoulder range [...] reviewed and are up to date Gaudencio Bhagat RN, am scribing for, and in the presence of Dr. Jone AGUILERA. I, Dr. Jone AGUILERA , personally performed the services described in this documentation, as described by Gaudencio Moreira RN in my presence and it is both accurate and complete. Digitally Signed by MALIA BECERRIL DO on 04/19/2023 02:51 PM [facility] VidalZnywdkag51-30-9034 Physical medicine and rehab Progress note Rehab Note Chief Complaint: Seeing this patient for reevaluation therapy progress and left MCA infarct, fall History of Present Illness: Seeing this patient for reevaluation therapy progress and left MCA infarct. Patient participates in acute inpatient rehabilitation with PT, OT and ST services. 48-qbdp-rwnswbj who presented to the hospital for planned [...] Rate76(APR 17 16:18)74(APR 17 09:18)76(APR 17 16:18) BJU372(APR 18 00:00)100(APR 17 16:18)120(APR 17 09:18) DBP62(APR 18 00:00)L 56(APR 17 16:18)64(APR 17 09:18) Physical Exam: General: Appears chronically ill, no acute distress Respiratory: Clear decreased at bases. O2 per nasal cannula. Cardiovascular: No murmur noted Arterial: Good distal pulses Edema: 1 out of 4 pretibial edema bilaterally. No calf tenderness. Musculoskeletal: 4/5 left lower extremity strength 2/5 right lower extremity strength Normal senior database programmer strength left. 0 right Normal shoulder range [...] reviewed and are up to date Gaudencio Bhagat RN, am scribing for, and in the presence of Dr. Jone AGUILERA. I, Dr. Jone AGUILERA , personally performed the services described in this documentation, as described by Gaudencio Moreira RN in my presence and it is both accurate and complete. Digitally Signed by MALIA BECERRIL DO on 04/19/2023 02:51 PM [facility] EscalanteUtayfiri27-87-6490 Note Subjective Patient reports he is doing [...] tenderness, or bladder distention Neurological: Dysarthria VITALS GvaeqzMwyvPEVtcgmUNVjQ4TMM5AikbAj(kg) 04/18 00:15----880333--50/34004.6 04/18 00:0036.2--019260--11/98314.6 04/17 23:54 RA03/85678.6 04/17 16:18----708112 1.0L/m03/97350.2 04/17 12:5836.7--334020--74/62826.6 24 Hr Tmax: 36.7 at 04/17 12:58 36 Hr Tmax: 36.8 at 04/16 17:02 Vital Signs are the last 5 [...] 2 mL, Inhalation, qDayRT, 1st dose location: [facility], , 04/07/23 18:26:00 EST bumetanide (Bumex) Start: 04/18/23 [...] Problems (10) Acute ischemic left MCA stroke (5236888270) Aortic stenosis with bicuspid valve (220753778) Bipolar (160233292) Chronic back pain greater than three months duration (3892095785) COPD (chronic obstructive pulmonary disease) (35974453) HLD (hyperlipidemia) (25922065) HTN (hypertension) ([id number]) Morbid obesity (370724548) Obesity ([id number]-R4R9156H1S8Y) Sleep apnea (31YP655J-6QX5-2O00-Q8C9-6L17ZQ31MO0W) ASSESSMENT/PLAN: Severe aortic stenosis status post aortic [...] software and may contain typographical errors. Jeannie Bhagat RN, am scribing for , and in the presence of Dr. Miner. I, Dr. Miner, personally performed the services described in this documentation, as scribed byJeannie RN in my presence and it is both accurate and complete. Digitally Signed by BENJAMIN MINER DO on 04/23/2023 12:35 PM [facility]onXdlunaty12-47-0979 Physical medicine and rehab Progress note Date [...] MALIA BECERRIL DO on 04/18/2023 11:48 AM [facility] VidalKtsxcggh66-31-4712 Note REFERRING PHYSICIAN: Malia Becerril DO. CONSULTING PSYCHOLOGIST: Eitan Baeza, PhD. REASON FOR REFERRAL: Psychological exam and treatment. HISTORY OF PRESENT ILLNESS: Mr. Catherine is a 62-year-old white male admitted to [facility] from [facility] after undergoing elective aortic valve replacement.Unfortunately, [...] weakness. Still on a modified diet with fnnceglk-dl-cjumqd dysphagia and dysarthria. He has visualsymptoms as well as headaches. He is on oxygen at 2 liters per minute. He has a Zazueta catheter. Cognitively, he reports mild difficulties with attention and memory. More significant problems withword finding, aggravated by the dysarthria. No prior HUMANITIES COORDINATOR injuries or illnesses and normal mentationpremorbidly he [...] modified diet. Mr. Catherine lives outside of [place] with his Shadia and daughter pAple. He has 6 children, 5 adopted. 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 He has a high school diploma. CONCLUSIONS: [...] this referral. 30 minutes EITAN BAEZA, PhD GM/NTS JOB#: [id number] DICTATION ID#: [id number] Digitally Signed by EITAN BAEZA PhD on 04/17/2023 01:38 PM [facility]onJxwhoggp91-05-9044 Miscellaneous Notes* Telephone Encounter - Bhavani Juan RN - 04/13/2023 9:50 AM EST Ya from [facility] from 's secondary insurance asking for pt's discharge instructions from [facility] on 04/07. She states pt had a [...] medical records phone number. documented in [facility] Physical medicine and rehab Consult note INPATIENT REHAB HISTORY AND PHYSICAL CONSULTATION DATE OF ADMISSION: 04/07/2023 CC: AVR ascending repair, CVA Admission History and Physical HISTORY OF PRESENT ILLNESS: This is a 62-year-old male admitted to [place] [facility] rehab from [facility] for planned surgery AVR and ascending [...] Rate62(APR 09 23:23)62(APR 09 08:16)62(APR 09 08:16) LLR371(APR 09 23:23)124(APR 09 23:23)138(APR 09 08:05) DBP62(APR [...] reviewed. 36hr Labs 04/09 2246 Blood Glucose, Drzwvgtrm400C Blood Glucose, Nyjpsvjcy823K 04/09 1738 Blood Glucose, Fhpcrnmyg286W Blood Glucose, Dpedqoqts851O 04/09 1201 Blood Glucose, Yhytvitee557T Blood Glucose, Vnotqjlui171W Blood Glucose TSee Flowsheet 04/09 0805 Blood Glucose, Dtsifbjdz154D Blood Glucose, Ukyqadyda602S Blood Glucose TSee Flowsheet 04/08 2221 Blood Glucose, Xbwwycydu497J Blood Glucose, Xbkmfoljj755J 04/08 1706 Blood Glucose, Vzglveszi866T Blood Glucose, Qvuklyncy397Z Blood Glucose TSee Flowsheet ASSESSMENT AND PLAN: [...] will follow during acute rehabilitation stay at [facility] with the goal of returning to a more independent living status at the conclusion of the stay. Medications reviewed and up to date This document was transcribed using dictation software and may contain typographical errors. Jeannie Bhagat RN, am scribing for , and in the presence of Dr. Miner. I, Dr. Miner, personally performed the services described in this documentation, as scribed by, Jeannie Martin RN in my presence and it is both accurate and complete. Digitally Signed by BENJAMIN MINER DO on 04/13/2023 09:35 AM [facility]onEwkayvzq49-87-6834 Evaluation + Plan noteExtracted from: Title:Clinical Document Author:JESUS MANUEL MELENDREZ COMMERCIAL LINES ACCOUNT EXECUTIVE-SEASONER HAND Date:04/08/23 Acute Inpatient Rehab Histor y and Physical Date of Service: 12/07/2023 Date of Admission: 12/06/2023 Attending Physician: Dr. Becerril [employer] 1.2 right body involved, left brain CVA Etiologic Diagnosis Left MCA infarct History of Present Illness This is a 62-year-old male admitted to [facility] rehab from [facility] for planned surgery AVR and ascending [...] was deemed medically stable and transferred to [place] [facility] for physical and occupational therapy [...] with family, first- floor set up. 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 Safe place to go: Yes. Lives [...] Rate76(APR 07 21:48)76(APR 07 21:48)76(APR 07 21:48) HJK885(APR 08:33)112(APR 08 00:33)132(APR 07 18:00) DBP60(APR 08 00:33)60(APR 07 18:00)60(APR 07 18:00) 36hr Labs 04/07 2138 Blood Glucose, Pizqmlicw152S Blood Glucose, Slnxwmuon553O Assessment/Plan - Aortic stenosis: Patient underwent elective AVR at [facility]. - CVA: Post extubation, patient developed [...] Patient currently receiving Jevity tube feed via Malharak. Also on minced/moist mildly thickened oral diet. [...] software and may contain typographical errors. Jeannie Bhagat RN, am scribing for, and in the presence of Reilly Melendrez APRN. Reilly Bhagat APRN, personally performed the services described in this documentation, as scribed by, Jeannie Martin RN in my presence and it is both accurate and complete. L[facility] Vidal 02-24-2024 Note ORIGINAL EXAMINATION: ONE XRAY VIEW [...] 04/08/2023 11:45:10 AM Ordering Provider: JESUS MANUEL Vidal02-24-2024 Physical medicine and rehab History and physical note Acute Inpatient Rehab History and Physical Date of Service: 12/07/2023 Date of Admission: 12/06/2023 Attending Physician: Dr. Becerril [employer] 1.2 right body involved, left brain CVA Etiologic Diagnosis Left MCA infarct History of Present Illness This is a 62-year-old male admitted to [place] [facility] from [facility] for planned surgery AVR and ascending [...] was deemed medically stable and transferred to [place] [facility] for physical and occupational therapy [...] with family, first- floor set up. 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 Safe place to go: Yes. Lives [...] 24 hrs)__Last Charted Minimum Maximum Temp36.7(APR 08 00:33)36.7(B 00:33)36.8(APR 07 18:00) Heart Rate76(APR 07 21:48)76(APR 07 21:48)76(APR 07 21:48) ASF337(B 00:33)112(B 00:33)132(B 18:00) DBP60(B 00:33)60(B 18:00)60(APR 07 18:00) 36hr Labs 04/07 2138 Blood Glucose, Nbhmzuixu787T Blood Glucose, Uqnazlhkq899C Assessment/Plan - Aortic stenosis: Patient underwent elective AVR at [facility]. - CVA: Post extubation, patient developed [...] software and may contain typographical errors. Jeannie Bhagat RN, am scribing for, and in the presence of Reilly Melendrez APRN. Reilly Bhagat APRN, personally performed the services described in this documentation, as scribed by, Jeannie Martin RN in my presence and it is both accurate and complete. Digitally Signed by JESUS MANUEL MELENDREZ APRN-TODD on 04/08/2023 01:03 PM Leland VidalIwyvpczv1961 History of Past illness Narrative* Problem Noted [...] of this encounter (statuses as of 04/13/2023) [facility] of Past illness Narrative* Problem [...] of this encounter (statuses as of 04/24/2023) [facility] of Past illness Narrative* Problem [...] of this encounter (statuses as of 05/02/2023) [facility] of Past illness Narrative* Problem Noted Date Diagnosed Date Resolved Date Acute respiratory insufficiency 03/22/2023 03/25/2023 Thrombocytopenia 03/22/2023 03/25/2023 Overview: Platelet Count Date Value Ref Range Status 03/22/2023 109 (L) 150 - 400 k/uL Final On mechanically assisted ventilation 03/20/2023 03/22/2023 Lactic acidosis 03/20/2023 03/21/2023 Pre-op testing 03/16/2023 03/27/2023 Overview: [facility] PRE-OP CHECKLIST Surgeon: Shlomo Alcocre MD Intended procedure: AVR/Asc Informed Consent Completed: [...] of this encounter (statuses as of 05/19/2023) [facility] of Past illness Narrative* Problem [...] of this encounter (statuses as of 05/22/2023) [facility] Narrative* Problem [...] of this encounter (statuses as of 05/22/2023) [facility] Narrative* Problem [...] of this encounter (statuses as of 05/24/2023) [facility] Narrative* Problem [...] of this encounter (statuses as of 05/24/2023) [facility] Narrative* Problem [...] of this encounter (statuses as of 05/24/2023) [facility] Narrative* Problem [...] of this encounter (statuses as of 05/25/2023) [facility] Narrative* Problem [...] of this encounter (statuses as of 05/25/2023) [facility] Narrative* Problem [...] of this encounter (statuses as of 05/25/2023) [facility] Narrative* Problem [...] of this encounter (statuses as of 05/26/2023) [facility] Narrative* Problem [...] of this encounter (statuses as of 05/29/2023) [facility] Narrative* Problem [...] of this encounter (statuses as of 05/30/2023) [facility] Narrative* Problem [...] of this encounter (statuses as of 06/02/2023) [facility] Miscellaneous Notes* Telephone Encounter - July Perez LPN - 03/21/2023 2:07 PM EST Detailed VM left on pt's identified voicemail of information below. July Perez LPN * Telephone Encounter - Bhavani Juan RN - 03/18/2023 8:02 AM EST LM for pt to return call * Telephone Encounter - Bhavani Juan RN - 03/18/2023 8:01 AM EST ----- Message from Angela Schmid APRN.SEASONER HAND sent at 03/17/2023 11:37 AM EST ----- Can please let patient know that repeat labs are improved. Angela Schmid APRN.TODD documented in this encounterNewark Hospital02-05-[facility]24 History of Past illness Narrative* Problem Noted Date Diagnosed Date Resolved Date Lactic acidosis 03/20/2023 03/21/2023 Tendinitis of left wrist 05/14/201308/2022 Atrial septal defect and mitral stenosis 11/30/2012 documented as of this encounter (statuses as of 03/22/2023) [facility] Miscellaneous Notes* Telephone Encounter - Lilia Parker RN - 03/19/2023 5:31 PM EST Patient calling regarding medication problem. Scheduled for cardiac surgery tomorrow, 03/20. Patient accidentally took Losartan this evening which he was previously told to hold prior to surgery. Conferenced to [facility] double needle operator lockstitch, Ivy, to speak with provider district home economics agent for CTS, patient of Dr. Alcocer. documented in this encounterNewark Hospital02-01-[facility]24 History of Present illness Narrative* Lilia [...] with any further questions documented in this encounterNewark Hospital02-01-2024 History of Present illness Narrative* Scarlet [...] stenosis initially followed by Dr. Montgomery in [place] and transitioned [place] in [place] with ourcardiology team. He had a recent TTE on 09/30/2022, and though the images are poor due to body habitus he did have findings of severe aortic stenosis with peak gradient of 76, mean gradient 39 DI 0.23, and aortic valve area of 1.0. He was recently admitted to [facility] for a blister on the anterior [...] 4.5 cm. The patient also saw a telegraph mechanic who debrided his noninfected right tibial wound [...] DVI today and MARY of 0.72 cm2. [facility] LMT: _ The LMT is normal. LAD: [...] Diabetic Neuropathy, With Long-Term Current Use of Insulin([facility]) Hyperlipidemia Htn (Hypertension) Ddd (Degenerative Disc Disease), Lumbar Bipolar 1 Disorder ([facility]) Morbid Obesity With Bmi of 50.0-59.9, Adult ([facility]) Lvh (Left Ventricular Hypertrophy) Chronic Bronchitis, Simple ([facility]) Hypogonadism Male Ulnar Neuropathy of Left Upper Extremity Microalbuminuria Nonrheumatic Aortic Valve Stenosis Type 2 Diabetes Mellitus With Microalbuminuria, With Long-Term Current Use of Insulin ([facility]) Nocturnal Oxygen Desaturation Gerd Without Esophagitis Peripheral Vascular Disease ([facility]) Chronic Back Pain Chronic Obstructive Pulmonary Disease ([facility]) History of Disease Morbid Obesity ([facility]) Pneumonia Right Flank Pain Discharge Planning Issues Pre-Op Testing Chronic Diastolic Heart Failure ([facility]) PAST MEDICAL HISTORY Diagnosis Date Anxiety Aortic valve stenosis, nonrheumatic Atrial septal defect and mitral stenosis Bicuspid aortic valve Bipolar [address] disorder ([facility]) Chronic obstructive pulmonary disease (COPD) ([facility]) Coronary artery disease Degenerative disc disease sees Dr. Sellers Diabetic neuropathy ([facility]) DM (diabetes mellitus) ([facility]) HTN (hypertension) Hyperkalemia Hyperlipidemia Hypogonadism male LVH (left ventricular hypertrophy) Morbid obesity ([facility]) MANISH on CPAP Pain management Dr. [...] Disease Brother other (Myocardial infarc) Brother Fatal [place] No Ocular Disease No Family History Social [...] time a week. flash glucose scanning reader (TappitSTYLE ANAHI 2 READER) DMII, insulin requiring. Testing [...] STOCKINGS 30-40 MM. DX: EDEMA Blood-Glucose Meter [facility] Dispense 1 kit Medication Comments documented by [...] 0.72 cm (0.30 cm /m ) by continuityJAYAI. The peak gradient is 58 mmHg, the [...] Impression IMPRESSION: Stable exam without acute findings. Multi Disciplined Language Analyst: TOMMY Transcribe Date/Time: Oct 26 2022 3:48P [...] and consent discussed: yes. Patient / Responsible Republican agrees to proceed: yes Patient / Surrogate agrees to blood products: Yes Instructions Given to Patient: Instructions located in the after visit summary. Patient given verbal and written preop instructions and voices comprehension and compliance. Signature: Scarlet Martin MD Patient Name: Kiel Catherine Date: March 16, 2023 Time: 2:39 PM Pager/Contact #: documented in this encounterNewark Hospital02-01-2024 History and physical note * Lilia [...] STOCKINGS 30-40 MM. DX: EDEMA Blood-Glucose Meter [facility] Dispense 1 kit losartan (COZAAR) 25 mg [...] Disease Brother other (Myocardial infarc) Brother Fatal [place] No Ocular Disease No Family History PAST MEDICAL HISTORY Diagnosis Date Anxiety Aortic valve stenosis, nonrheumatic Atrial septal defect and mitral stenosis Bicuspid aortic valve Bipolar 1 disorder ([facility]) Chronic obstructive pulmonary disease (COPD) ([facility]) Coronary artery disease Degenerative disc disease sees Dr. Sellers Diabetic neuropathy ([facility]) DM (diabetes mellitus) ([facility]) HTN (hypertension) Hyperkalemia Hyperlipidemia Hypogonadism male LVH (left ventricular hypertrophy) Morbid obesity ([facility]) MANISH on CPAP Pain management Dr. [...] R foot, recent, healed R thigh abscess HUMANITIES COORDINATOR: Headache/Migraine migraine a few per year, Dizziness [...] was interpreted by Dr. Dario Santiago from [employer] Rew[employer] Machine Operator: [facility] Transcribe Date/Time: Nov 24 2022 6:53P [...] and Physical dated 03/16/2023 documented in this encounterNewark Hospital02-01-2024 History of Present illness Narrative* Shlomo Alcocer MD - 03/16/2023 1:02 PM EST Images from the original note were not included. Thoracic and Cardiovascular Surgery [facility] SURGICAL STAFF CONSULT Patient Type: CONSULT Visit to determine Surgery: YES PCP: Alyson Arthur [address] [place] [address] Referring Physician: Benjamin Pike [address] [place] [id number] HPI: Mr. Kiel Catherine is a seen [...] letter. Shlomo Alcocer MD documented in this encounterNewark Hospital02-01-2024 History of Present illness Narrative* Kiel Barnes MD - 03/16/2023 9:15 AM EST Images from the original note were not included. [facility] [place] Devyn Gomez Department of Cardiovascular Medicine SECTION OF CLINICAL CARDIOLOGY OUTPATIENT VISIT DATE March 16, 2023 OUTPATIENT VISIT TYPE CONSULTATION PRIMARY CARE PHYSICIAN: Alyson Arthur [address] [place] [address] REFERRING PHYSICIAN Shlomo Alcocer [address] [facility] [address] CHIEF COMPLAINT: Preaortic valve replacement HISTORY OF [...] Diet:Regular Exercise: Nothing at this time. 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 Currently on Disability. [...] Disease Brother other (Myocardial infarc) Brother Fatal SC No Ocular Disease No Family History ALLERGIES: ALLERGIES Allergen Reactions Iodinated Contrast * GI Upset, Other: See Comments Hypotension, temporary SOB Lisinopril Other: See Comments Hyperkalemia Penicillins Rash Flonase [Fluticason* Other: See Comments Nose bleeds MEDICATIONS: insulin needles, DISPOSABLE, (PEN NEEDLE) 31 gauge x /16^Use one needle per dose. 4per day.^Disp:100 Each^Rfl: [...] 4 capsule^Rfl: 11 flash glucose scanning reader (TappitSTYLE ANAHI 2 READER)^DMII, insulin requiring. Testing 3-5 [...] antegrade flow noted. Technologist: Kristal Burr RVT [facility] Ordering physician: LEANDRO FOSTER [...] was interpreted by Dr. Dario Santiago from [employer] Machine Operator: PSCB Transcribe Date/Time: Nov 24 2022 6:53P Dictated [...] which seems appropriate. Follow-up with his local supervisor stitching department routinely. Thank you for allowing me to participate in the care of your patient. Please reach out to me at anytime with questions or concerns. Kiel Barnes MD, MS, [facility] Co-Director, [facility] rotor coil taper, [facility] Section of Clinical Cardiology, Department of Cardiovascular Medicine Nora Garcia [facility] Heart, Vascular, and Thoracic [place] [facility], [address] [place] [address], Desk [facility], [place] [address] Office Office Appointments: [phone] I personally interviewed, confirmed and edited the above information as obtained by others. documented in this encounterNewark Hospital12-15-2023 Miscellaneous Notes* Telephone Encounter - Janki [...] 02/21/2023 Janki Vale RN. documented in this encounterNewark Hospital11-27-2023 Miscellaneous Notes* Telephone Encounter - Bebteo Haro - 01/09/2023 2:16 PM EST ESSIE [...] notify patient. Ya Granger documented in this encounterNewark Hospital11-16-2023 Miscellaneous Notes* Telephone Encounter - Bhavani [...] you. Bhavani Juan RN. documented in this encounterNewark Hospital11-14-2023 Miscellaneous Notes* Telephone Encounter - Leandro Foster APRN.TODD - 12/27/2022 4:17 PM EST MULTI DISCIPLINARY HIGH RISK CARDIAC / AVR TEAM Members present: Dr. Donaldson, Dr. Calzada, Dr. Parra, Dr. Pike, Dr. Rosa, Dr. Izquierdo, Dr. Valente, Dr. Monroy, Malick Foster, COMMERCIAL LINES ACCOUNT EXECUTIVE, SEASONER HAND, Fanny Her COMMERCIAL LINES ACCOUNT EXECUTIVE, SEASONER HAND, DARRYL Horvath, Dario Reis APRN, SEASONER HAND, Dario Colbert CNP, DARRYL Keene, Dillon العلي PA-C. Presenting Physician: Dr. Pike PATIENT NAME: Kiel Catherine DATE: December 27, 2022 Outcome: Kiel Catherine 's history and imaging were reviewed by the physicians in attendance. The collaborative recommendation would be Dr. Pike to discuss case with Dr. Shlomo Alcocer at [facility], given high surgical risk albeit surgery is optimally best option over TAVR. These recommendations were communicated to the patient by myself. Leandro Foster APRN.CNP 12/27/22 documented in this encounterNewark Hospital11-14-2023 Miscellaneous Notes* Telephone Encounter - Adenike [...] injury Estelle Cardenas DPM documented in this encounterNewark Hospital11-06-2023 History of Present illness Narrative* Benjamin Pike MD - 12/19/2022 2:36 PM EST PRIMARY CARE PHYSICIAN: Alyson Arthur [address] [place] [address] Subjective Chief Complaint Patient presents with: Valvular [...] stenosis initially followed by Dr. Montgomery in [place] and transitioned to care in [place] with ourcardiology team. He had a recent TTE on 09/30/2022, and though the images are poor due to body habitus he did have findings of severe aortic stenosis with peak gradient of 76, mean gradient 39 DI 0.23, and aortic valve area of 1.0. He was recently admitted to [facility] for a blister on the anterior [...] 4.5 cm. The patient also saw a telegraph mechanic who debrided his noninfected right tibial wound [...] stenosis Bicuspid aortic valve Bipolar 1 disorder ([facility]) Chronic obstructive pulmonary disease (COPD) ([facility]) Coronary artery disease Degenerative disc disease sees Dr. Sellers Diabetic neuropathy ([facility]) DM (diabetes mellitus) ([facility]) HTN (hypertension) Hyperkalemia Hyperlipidemia Hypogonadism male LVH (left ventricular hypertrophy) Morbid obesity ([facility]) MANISH on CPAP Pain management Dr. [...] Disease Brother other (Myocardial infarc) Brother Fatal SC No Ocular Disease No Family History Social [...] DX: EDEMA 1 Each 3 Blood-Glucose Meter [facility] Dispense 1 kit 1 Each [...] injection (DEFINITY) INTRAVENOUS DIRECTED PRN Kathy Colbert APRN.SEASONER HAND sodium chloride 0.9 % (flush) 10 mL (BD POSIFLUSH) 10 mL INTRAVENOUS DIRECTED PRN Ari Colbert APRN.SEASONER HAND perflutren lipid microspheres 1.3 mL in NaCl (PF) 0.9% 10 mL injection (DEFINITY) INTRAVENOUS DIRECTED PRScott Dixon PA-C sodium chloride 0.9 % (flush) 10 mL (BD POSIFLUSH) 10 mL INTRAVENOUS DIRECTED Scott Pereira PA-C TTE on 09/30/2022: CONCLUSIONS: - Technically [...] stenosis initially followed by Dr. Montgomery in [place] and transitioned to care in [place] with ourcardiology team. He had a recent TTE on 09/30/2022, and though the images are poor due to body habitus he did have findings of severe aortic stenosis with peak gradient of 76, mean gradient 39 DI 0.23, and aortic valve area of 1.0. He was recently admitted to [facility] for a blister on the anterior [...] 4.5 cm. The patient also saw a telegraph mechanic who debrided his noninfected right tibial wound [...] MD Cardiothoracic Surgery 12/19/2022 documented in this encounterNewark Hospital10-27-2023 Miscellaneous Notes* Telephone Encounter - Bebeto Haro LPN - 12/09/2022 2:29 PM EDT Phoned [...] you. Alexandra Osborn LPN. documented in this encounterNewark Hospital10-27-2023 Miscellaneous Notes* Telephone Encounter - Fely [...] you. Fely Cohn LPN. documented in this encounterNewark Hospital10-23-2023 Instructions* Patient Instructions* Estelle Cardenas - [...] (or decreased sensation in your feet) a telegraph mechanic should always cut your toenails. Be Careful [...] Go to your health care provider or telegraph mechanic to treat these conditions. documented in this encounterNewark Hospital10-23-2023 History of Present illness Narrative* Estelle [...] stenosis Bicuspid aortic valve Bipolar 1 disorder ([facility]) Chronic obstructive pulmonary disease (COPD) ([facility]) Coronary artery disease Degenerative disc disease sees Dr. Sellers Diabetic neuropathy ([facility]) DM (diabetes mellitus) ([facility]) HTN (hypertension) Hyperkalemia Hyperlipidemia Hypogonadism male LVH (left ventricular hypertrophy) Morbid obesity ([facility]) MANISH on CPAP Pain management Dr. [...] of 4 capsules daily). flash glucose sensor (TappitSTYLE ANAHI 2 SENSOR) kit Change sensor every [...] STOCKINGS 30-40 MM. DX: EDEMA Blood-Glucose Meter [facility] Dispense 1 kit furosemide (LASIX) [...] Disease Brother other (Myocardial infarc) Brother Fatal SC No Ocular Disease No Family History Social [...] diabetes mellitus due to underlying condition (HCC) (S90.821A) Blister (nonthermal), right foot, initial encounter (E11.40, Z79.4) Controlled type 2 diabetes mellitus with diabetic neuropathy, with long-term current use of insulin ([facility]) PLAN: 1. History and physical examination [...] 6. Xrays ordered. Estelle Cardenas DPM Podiatry [address] [facility] [address] Dept: [phone] Dept * Tony Dick, THOMAS - 12/05/2022 3:03 PM EDT Patient presents [...] swelling to bilateral legs. documented in this encounterNewark Hospital10-19-2023 Miscellaneous Notes* Telephone Encounter - Tammi [...] 4 additional lasix doses be sent to [facility] in [place] as he has pill packs and no [...] with podiatry as ordered. documented in this encounterNewark Hospital10-18-2023 History of Present illness Narrative* Pascual [...] vomiting, diarrhea. Patient does not have a telegraph mechanic. Does not have compression stockings at home, [...] stenosis Bicuspid aortic valve Bipolar 1 disorder ([facility]) Chronic obstructive pulmonary disease (COPD) ([facility]) Coronary artery disease Degenerative disc disease sees Dr. Sellers Diabetic neuropathy ([facility]) DM (diabetes mellitus) ([facility]) HTN (hypertension) Hyperkalemia Hyperlipidemia Hypogonadism male LVH (left ventricular hypertrophy) Morbid obesity ([facility]) MANISH on CPAP Pain management Dr. [...] Disease Brother other (Myocardial infarc) Brother Fatal SC No Ocular Disease No Family History Patient [...] STOCKINGS 30-40 MM. DX: EDEMA Blood-Glucose Meter [facility] Dispense 1 kit Current Facility-Administered [...] Abs Lymph 1.00 - 4.00 k/uL 1.80 Sequoyah% % 8.0 Abs Sequoyah <0.87 k/uL 0.74 Eosin% % 0.3 Abs [...] PODIATRY Pascual Bacon MD documented in this encounterNewark Hospital10-18-2023 Miscellaneous Notes* Telephone Encounter - July [...] he had a heart cath done at [facility] yesterday 11-29-22. This was an outpt procedure. No problems after heart cath. Was not able to book with pt's provider/team. Apt has been booked. July Perez LPN documented in this encounterNewark Hospital10-13-2023 Miscellaneous Notes* Telephone Encounter - Joan Gallardo RN - 11/25/2022 11:37 AM EDT [facility] calls and requests most recent OV note from Dr. Arthur. Faxed per request to [phone]. Joan Gallardo RN * Telephone Encounter - Aminah Escudero LPN - 11/25/2022 9:12 AM EDT Completed and faxed back as requested. * Telephone Encounter - Elma Guthrie Ma - 11/24/2022 4:05 PM EDT Type of form: CPAP/BiPAP Form received via fax When form is completed, Fax form to [facility] Form has been forwarded to Physician Desk: Dr. Jerson Guthrie Ma documented in this encounterNewark Hospital10-12-2023 Miscellaneous Notes* Telephone Encounter - Liz [...] PM EDT FYI * Telephone Encounter - Gregory BárbaraErichJanki - 11/24/2022 12:55 PM EDT Patient was to have Brain MRI and called to cancel due to back pain and unable to lay on his back and complete this test. documented in this encounterNewark Hospital10-12-2023 History of Present illness Narrative* Jaelyn [...] 2022 TIME: 9:31 AM documented in this encounterNewark Hospital10-09-2023 Miscellaneous Notes* Telephone Encounter - Carmen Pardo - 11/21/2022 3:16 PM EDT Pharmacy verified in [employer] Patient has been identified by name and [...] Please advise. Carmen Granger documented in this encounterNewark Hospital10-05-2023 History of Present illness Narrative* Senia Brower RPFT - 11/17/2022 2:31 PM EDT PULM FUNCTION SMARTBLOCK: Provider: Leandro Foster APRN.SEASONER HAND Assisting Tech: Senia Brower RPFT Spirometry: 1 DLCO: 1 LV - Box: 1 documented in this encounterNewark Hospital09-20-2023 Miscellaneous Notes* Telephone Encounter - Janki Vale RN - 11/02/2022 1:14 PM EDT Patient requesting CPAP order be faxed to [facility] at [phone]. Faxed as requested. Janki Vale RN documented in this encounterNewark Hospital09-19-2023 Miscellaneous Notes* Telephone Encounter - Margi [...] to review back pain, Patient uses [facility] in [place] documented in this encounterNewark Hospital2023 Instructions* Patient Instructions* Kayla Licea LPN [...] feel free to call our office at [phone] and ask to be transferred to General Surgery. Thank you for choosing [facility] [place] - General Surgery. documented in this encounterNewark Hospital2023 Nurse Note* Kayla Licea LPN - [...] 2007 Kayla Licea LPN documented in this encounterNewark Hospital2023 History of Present illness Narrative* Tony [...] stenosis Bicuspid aortic valve Bipolar 1 disorder ([facility]) Chronic obstructive pulmonary disease (COPD) ([facility]) Coronary artery disease Degenerative disc disease sees Dr. Sellers Diabetic neuropathy ([facility]) DM (diabetes mellitus) ([facility]) HTN (hypertension) Hyperkalemia Hyperlipidemia Hypogonadism male LVH (left ventricular hypertrophy) Morbid obesity ([facility]) MANISH on CPAP Pain management Dr. [...] 2 mL 11 flash glucose scanning reader (TappitSTYLE ANAHI 2 READER) DMII, insulin requiring. Testing [...] DX: EDEMA 1 Each 3 Blood-Glucose Meter [facility] Dispense 1 kit 1 Each 0 Current Facility-Administered Medications Medication Dose Route Frequency Provider Last Rate Last Admin perflutren lipid microspheres 1.3 mL in NaCl (PF) 0.9% 10 mL injection (DEFINITY) INTRAVENOUS DIRECTED PRN Kathy Colbert APRN.SEASONER HAND sodium chloride 0.9 % (flush) 10 mL (BD POSIFLUSH) 10 mL INTRAVENOUS DIRECTED PRN Ari Colbert APRN.SEASONER HAND perflutren lipid microspheres 1.3 mL in NaCl [...] Disease Brother other (Myocardial infarc) Brother Fatal SC No Ocular Disease No Family History REVIEW OF SYMPTOMS: The review of systems data was entered by the nurse and reviewed by me Nursing Notes: Kayla Licea LPN 10/27/2022 3:03 [...] plan Tony Mercer PA-C documented in this encounterNewark Hospital09-13-2023 Miscellaneous Notes* Telephone Encounter - Aminah Escudero LPN - 10/26/2022 4:13 PM EDT Patient notified. * Telephone Encounter - Alyson Arthur MD - 10/26/2022 3:56 PM EDT Let him know his xray is ok. documented in this encounterNewark Hospital09-12-2023 History of Present illness Narrative* Martha Mobley RT(R) - 10/25/2022 3:50 PM EDT Radiology [...] 25, 2022 3:41 PM documented in this encounterNewark Hospital09-12-2023 Miscellaneous Notes* Telephone Encounter - Janki Vale RN - 10/25/2022 3:05 PM EDT [facility] calling regarding script received for pt's Bactroban cream today. Insurance does notcover the cream, but does cover the ointment. Pharmacy asking if provider would like to change to ointment? Please contact [facility]. Thank you. documented in this encounterNewark Hospital09-12-2023 History of Present illness Narrative* Alyson Arthur MD - 10/25/2022 2:11 PM EDT Patient presents with: Hospital Follow Up HPI: Patient presents today for office visit for Hospital follow up. Also has concerns of painful boil on upper inside of right thigh. Oozing fluid. Denies fever. Has been there about four days. Admitted into [facility] 10/09/22 Went in for shortness [...] STOCKINGS 30-40 MM. DX: EDEMA Blood-Glucose Meter [facility] Dispense 1 kit Current Facility-Administered [...] stenosis Bicuspid aortic valve Bipolar 1 disorder ([facility]) Chronic obstructive pulmonary disease (COPD) ([facility]) Coronary artery disease Degenerative disc disease sees Dr. Sellers Diabetic neuropathy ([facility]) DM (diabetes mellitus) ([facility]) HTN (hypertension) Hyperkalemia Hyperlipidemia Hypogonadism male LVH (left ventricular hypertrophy) Morbid obesity ([facility]) MANISH on CPAP Pain management Dr. [...] Disease Brother other (Myocardial infarc) Brother Fatal SC No Ocular Disease No Family History Social [...] CAPSULE Alyson Arthur MD documented in this encounterNewark Hospital09-07-2023 Miscellaneous Notes* Telephone Encounter - Aminah Escudero LPN - 10/20/2022 12:52 PM EDT Completed as requested. * Telephone Encounter - Scott Livingston PA-C - 10/20/2022 10:19 AM EDT Done Keith Livingston PA-C * Telephone Encounter - Laurel Adan Ma - 10/19/2022 2:41 PM EDT Please print Rx Called to check on PA status was transferred to [facility] who advised spoke to patient who did not want to go through them and only local. I verified with rep that since he has medicare he has to go through DME company or no sensor will be given. Rep advised yes has to go through [employer]. Spoke to patient who is aware go through DME and get anahi and have to do multiple finger sticks from local pharm. Patient will call [employer] to verify account. [facility] Fax * Telephone Encounter - Laurel [...] do not hear anything. [employer] Bin [id number] PCN [id number] Member number: ID [id number] * Telephone Encounter - Laurel Adan Ma - 10/06/2022 3:30 PM EDT Fax for PA received from pharmacy for anahi sensor Prior Authorization has been completed online at [employer] for anahi, will await response. [id number] Please keep encounter open until final decision has been received and documented from insurance company. Laurel Adan MA documented in this encounterNewark Hospital09-01-2023 Miscellaneous Notes* Telephone Encounter - Laurel Adan Ma - 10/14/2022 3:23 PM EDT Please see TE that says prior auth Laurel Adan Ma * Telephone Encounter - Marzena Awad - 10/14/2022 12:25 PM EDT Kiel Catherine is calling Alyson Arthur MD today to request a prior authorization on Flash glucose sensor (FREESTYLE ANAHI 2 SENSOR KIT) Please advise [place] when approved, as patient is completely out of these sensors Patient has been identified by name and birthdate. Duration of symptoms: N/A Person calling: self Call patient at: at home [phone] (home) [phone] (cell) Was an appointment scheduled: No Closing statement: Prior Authorization Calls: Thank you for calling [facility], your call will be returned within the next 24 hours or next business day. Marzena Diamond documented in this encounterNewark Hospital08-29-2023 Miscellaneous Notes* Telephone Encounter - Bhavani Juan RN - 10/11/2022 2:48 PM EDT Angela from [facility] calling to let Dr. Arthur and Angela Schmid know that Kiel was in [facility] from 10/08-10/11 for pneumonia. She states she will be talking to the patient on . Asked if she would have pt call in to schedule a hospital follow up within the next two weeks. documented in this encounterNewark Hospital08-29-2023 Discharge summary Author Shanna Govea [facility] October 11, 2022 11:10am Note Date/Time October 11, 2022 11 :10am [facility] Medical Records Department [address] [place] [address] Instructions for Home/Discharge Instructions 10/11/22 1110 MR#: [id number] Acct: [id number] Name: KIEL CATHERINE Rep #:[id number] : 1960 62 From: Shanna Govea [...] CC: Dr. Alyson Arthur MD ~ Signed [facility] Work Phone: 1(111) 989-735908-29-2023 Discharge summary Author Juaquin Spear [facility] October 11, 2022 8:30am Note Date/Time October 09, 2022 3: 28pm [facility] Medical Records Department [address] [place] [address] Emergency Department Summary 10/09/22 MR#: [id number] Acct: [id number] Name: KIEL CATHERINE Rep #:[id number] : 1960 62 From: Malia GOFF PCP: Dr. Alyson Arthur MD Status:ADM I N Location: [place] [address] <Statement entered by Juaquin Spear MD - [...] he has congestive heart failure. [facility] <SHELL Knox - Last Filed: 10/09/22 15:28> [facility] Medical History (Updated 10/09/22 @ 22:27 by [...] Oxygen Delivery Method Room Air Room Air [facility] <SHELL Knox - Last Filed: 10/09/22 15:28> [facility] Lab Data Labs: Laboratory Results - last 24 hr 10/09/22 10/09/22 15:36 18:40 WBC 11.1 H RBC 4.89 Hgb 14.7 Hct 44.6 MCV 91.2 MCH 30.1 MCHC 33.0 RDW Std Deviation 42.2 RDW Coeff of David 12.7 Plt Count 229 MPV 10.6 Immature Gran % (Auto) 0.800 Neut % (Auto) 72.5 H Lymph % (Auto) 15.5 L Sequoyah % (Auto) 9.4 Eos % (Auto) 1.2 [...] Signed: Fabian Nash MD at 20:11 EDT Reading Location ID and State: [facility] / [place] , Service support , EKG Sinus tachycardia: Attestation: I personally reviewed and interpreted this EKG as follows: Interpretation: Sinus Rhythm Comments: Sinus tachycardia, rate 102 bpm, IN interval 186 ms, QRS duration 82 ms, [...] Spear MD - Last Filed: 10/09/22 23:43> [facility] Narrative Medical decision making narrative: I [...] 72.5 H Lymph % (Auto) 15.5 L Sequoyah % (Auto) 9.4 Eos % (Auto) 1.2 [...] Discharge Plan Disposition Disposition: Acute Care Hospital [facility] Discharge Date/Time: 10/09/22 21:33 What to do if you have Problems For any increased pain, shortness of breath, bleeding, nausea or vomiting, chestpain, or any unexpected problems, contact your Primary Care Provider. Call [facility] ([phone]) or report to the closest Emergency Room. Call 911 if necessary. 10/09/222124 <Electronically signed by Malia GOFF> Cosigner Signature (if applicable): 10/11/22 0830 <Electronically signed by Monse WEIR> CC: Dr. Alyson Arthur MD ~ Signed [facility] Work Phone: 1(832) 731-833108-28-2023 History and physical note Author Shanna Govea [facility] October 10, 2022 5:04pm Note Date/Time October 09, 2022 7: 01pm [facility] Medical Records Department [address] [place] [address] History & Physical Exam 10/09/22 1857 MR#: [id number] Acct: [id number] Name: KIEL CATHERINE Rep #:[id number] : 1960 62 From: Shanna Govea MD PCP: Dr. Alyson Arthur MD Status:ADM I N Location: [facility] [id number] HPI - General General Date of Service: 10/09/22 Chief Complaint: shortness of breath HPI Narrative KIEL CATHERINE, is a 62 M with a PMH as outlined who presents via the ED On 10/09/2022 with a complaint of shortness of breath. He is being worked up to get a valve replacement, of the mitral valve it appears, and was supposed to follow up at [facility] tomorrow. He started having worsening cough, increased shortness of breath and swelling of his lower extremities over the last week. He admitted to a cough and generalised weakness. REview of systems was otherwise negative. Vitals in the ED were temp of 96.5F, IN of 107, BP of 144/73 and RR [...] obesity and shortness of breath. [facility] Medical History Benign essential hypertension COPD (chronic [...] (Auto) 72.5 H, Lymph % (Auto) 15.5 L,Sequoyah % (Auto) 9.4, Eos % (Auto) 1.2, [...] CPAP nightly. He states his setting is [id number] DVT prophylaxis: Lovenox Code status: full code * Patient counseled extensively about different types of CODE STATUS including full code, DNR CCA and DNR CCA. Patient elects to be full code * Total voao-js-vjid: 17 mins Charges/Coding Visit Charges Inpatient E&M: 86918 Init Hosp L3 Procedures Hospitalists Procedures: 00183 Advncd Care Plan 30 Min 10/10/22 1704 <Electronically signed by Shanna Govea MD> Cosigner Signature (if applicable): CC: Dr. Shanna Govea MD; Dr. Alyson Arthur MD~ Signed [facility] Work Phone: 1(767) 873-914608-28-2023 Progress note Author [facility] October 10, 2022 5:04pm Note Date/Time October 10, 2022 12 :48pm [facility] Medical Records Department [address] [place] [address] Progress Note 10/10/22 1245 MR#: [id number] Acct: [id number] Name: KIEL CATHERINE Rep #:[id number] 1 : 1960 62 From: Shanna Govea MD PCP: Dr. Alyson Arthur MD Status:ADM I N Location: [place] [address] Subjective Subjective Patient seen and examined. He [...] (Auto) 72.5 H, Lymph % (Auto) 15.5 L,[place] % (Auto) 9.4, Eos % (Auto) 1.2, [...] 82.0 H, Lymph % (Auto) 9.4 L, [place] % (Auto) 6.4, Eos % (Auto) 0.8, [...] CPAP nightly. He states his setting is [id number] #Nicotine dependence: counseled to quit. Still smokes about 1 pack daily. Willstart on nicotine patch 21 mg daily. DVT prophylaxis: Lovenox Code status: full code * Charges/Coding Visit Charges Inpatient E&M: 81451 Subs Hosp L2 10/10/22 1704 <Electronically signed by Shanna Govea MD> Shanna Govea MD Cosigner Signature (if applicable): CC: ~ Signed [facility] Work Phone: [phone] 109-860908-25-2023 Miscellaneous Notes* Telephone Encounter - Radha Messer - 10/07/2022 12:19 PM EDT 2nd call: Left to schedule OV w/ Dr. Pike. Internal referral from Kathy Colbert APRN.SEASONER HAND - Aortic valve stenosis, etiology of cardiac valve disease unspecified; Bicuspid aortic valve [facility]23 Miscellaneous Notes* Telephone Encounter - Bairon [...] and advise. Bairon Mendoza documented in this encounterNew[facility]08-22-2023 Miscellaneous Notes* Telephone Encounter - Krys [...] a referral. Thank you! documented in this encounterNew[facility]08-21-2023 Miscellaneous Notes* Result Encounter Note - [...] a referral. Thank you! documented in this encounterNewark [facility]08-16-2023 History of Present illness Narrative* Alyson [...] and down right leg. Had MRI in [place] but hasn't not been given results yet. [...] Discard Pen After flash glucose scanning reader (TappitSTYLE ANAHI 2 READER) DMII, insulin requiring. Testing [...] by mouth three times daily. Blood-Glucose Meter [facility] Dispense 1 kit Current Facility-Administered [...] stenosis Bicuspid aortic valve Bipolar 1 disorder ([facility]) Chronic obstructive pulmonary disease (COPD) ([facility]) Coronary artery disease Degenerative disc disease sees Dr. Sellers Diabetic neuropathy ([facility]) DM (diabetes mellitus) ([facility]) HTN (hypertension) Hyperkalemia Hyperlipidemia Hypogonadism male LVH (left ventricular hypertrophy) Morbid obesity ([facility]) MANISH on CPAP Pain management Dr. [...] Disease Brother other (Myocardial infarc) Brother Fatal [place] No Ocular Disease No Family History Social [...] neuropathy, with long-term current use of insulin ([facility]) - ICD9: 250.60, 357.2, V58.67, ICD10: [...] microalbuminuria, with long-term current use of insulin ([facility]) - ICD9: 250.40, 791.0, V58.67, ICD10: E11.29, R80.9, Z79.4 - get sugars. 12. Morbid obesity with BMI of 50.0-59.9, adult ([facility]) - ICD9: 278.01, V85.43, ICD10: E66.01, Z68.43 - stable. 13. Microalbuminuria - ICD9: 791.0, ICD10: R80.9 - remains on arb Alyson Arthur MD RTO in four to six weeks for recheck. documented in this encounterNew[facility]07-06-2023 Miscellaneous Notes* Telephone Encounter - Angela Schmid APRN.CNP - 08/18/2022 7:49 AM EDT Noted. Angela Schmid APRN.CNP * Telephone Encounter - Joan Gallardo RN - 08/17/2022 4:53 PM EDT Patient returns call and provider message reviewed. Patient will check with [employer] and insurance and call back once he finds out what is needed. Joan Gallardo RN * Telephone Encounter - Bebeto Haro LPN - 08/17/2022 11:10 AM EDT Left message for pt to return call to office. Bebeto Haro LPN * Telephone Encounter - Angela Schmid APRN.CNP - 08/17/2022 8:43 AM EDT I did [...] battery operated. Order needed to go to [facility]. Cheyenne Alarcon LPN documented in this encounterNewark Hospital06-30-2023 Miscellaneous Notes* Telephone Encounter - Scott Cabrera RN - 08/12/2022 4:06 PM EDT [...] Date of last office visit with pcp: 5-16-23. Next appt: 08-29-22 Last 2 Encounter Wt [...] you. Scott Cabrera RN documented in this encounterNewark Hospital06-28-2023 Miscellaneous Notes* Telephone Encounter - Joan Gallardo RN - 08/10/2022 9:05 AM EDT Spouse (Shweta) calls to request compression stocking order be sent to [facility]. Pended with previous diagnosis of bilateral leg edema. Last OV: 06/28/2022 Next OV: 08/29/2022 Joan Gallardo RN documented in this encounterNewark Hospital06-26-2023 Miscellaneous Notes* Telephone Encounter - Aminah Escudero LPN - 08/08/2022 7:07 PM EDT Faxed order and last OV that discussed sleep apnea to [facility] as requested. * Telephone Encounter - Alyson [...] to repeat it. * Telephone Encounter - iTa Arenas RN - 08/01/2022 3:32 PM EDT Patient calling with request for order for new CPAP machine/supplies be sent to [facility]. Hesays his machine has reached it's maximum hours. . Aware PCP out of office this week. States okay to wait for provider's return. Tia Arenas RN documented in this encounterNewark Hospital06-07-2023 Miscellaneous Notes* Telephone Encounter - Janki [...] Visit Medication Sig flash glucose sensor (FREESTYLE ANAHI 2 SENSOR) [...] time a week. flash glucose scanning reader (TappitSTYLE ANAHI 2 READER) DMII, insulin requiring. Testing [...] by mouth three times daily. Blood-Glucose Meter [facility] Dispense 1 kit Janki Vale RN documented in this encounterNewark Hospital06-01-2023 History of Present illness Narrative* Greta [...] 4. Glaucoma suspect of both eyes IOP: today OCT normal (-) fam hx Plan to do 24-2 in 6 weeks along with refraction and IOP check Greta Powers, OD July 14, 2022 3:10 PM documented in this encounterNewark Hospital06-01-2023 History of Present illness Narrative* Santi [...] 14, 2022 3:38 PM documented in this encounterNewark Hospital05-22-2023 History of Present illness Narrative* Martha [...] 04, 2022 3:03 PM documented in this encounterNewark Hospital05-16-2023 Instructions* Patient Instructions* Angela Schmid APRN.CNP - 06/28/2022 3:43 PM EDT Continue the same blood pressure medication. Check with insurance re: shingrix vaccine. Let us know about the scooter battery. Recheck in 2 months. documented in this encounterNewark Hospital05-16-2023 History of Present illness Narrative* Angela [...] stenosis Bicuspid aortic valve Bipolar 1 disorder ([facility]) Chronic obstructive pulmonary disease (COPD) ([facility]) Coronary artery disease Degenerative disc disease sees Dr. Sellers Diabetic neuropathy ([facility]) DM (diabetes mellitus) (HCC) HTN (hypertension) Hyperkalemia [...] by mouth three times daily. Blood-Glucose Meter [facility] Dispense 1 kit dulaglutide (TRULICITY) [...] Disease Brother other (Myocardial infarc) Brother Fatal [place] Social History Tobacco Use Smoking status: Every [...] as needed for worsening/no improvement. Angela Schmid APRN.TODD documented in this encounterNewark Hospital05-12-2023 Miscellaneous Notes* Telephone Encounter - Janki Granger - 06/24/2022 3:14 PM EDT Patient has [...] and advise. Janki Granger documented in this encounterNewark Hospital04-18-2023 History of Present illness Narrative* Greta Powers, OD - 05/31/2022 2:56 PM EDT 1. Type 2 diabetes mellitus without retinopathy (HCC) Risk of diabetic changes and vision loss can be minimized by tight control of blood sugar, blood pressure, and cholesterol levels. Educated patient to continue care with primary care doctor and/or information security specialist to maintain optimum levels as they are [...] 31, 2022 2:56 PM documented in this encounterNewark Hospital04-17-2023 Miscellaneous Notes* Telephone Encounter - Aminah Escudero LPN - 05/30/2022 9:27 AM EDT Left detailed message for patient. * Telephone Encounter - Alyson Arthur MD - 05/30/2022 8:18 AM EDT Let him know sugars are much better. Urine still shows protein but is stable. Keep watching his diet. documented in this encounterNewark Hospital04-11-2023 Miscellaneous Notes* Telephone Encounter - Allison Omalley - 05/24/2022 3:01 PM EDT Patient informed and verbalized understanding. Allison Omalley * Telephone Encounter - Alyson Arthur MD - 05/24/2022 8:04 AM EDT Sugar is much better. Remind him he has a urine for microglobulin ordered that should have veen done with the labs. Please do documented in this [facility]04-10-2023 Instructions* Patient Instructions* Kathy Colbert APRN.SEASONER HAND - 05/23/2022 10:55 AM EDT Patient information: [...] process is complete. The content on the [employer] website is not intended nor recommended as a substitute for medical advice, diagnosis, or treatment. Always seek the advice of your own physician or other qualified healthcare professional regarding any medical questions or conditions.. 2016 [employer]. All rights reserved. Topic 66731 Version 5.0 documented in this encounterNewark Hospital04-10-2023 History of Present illness Narrative* Kathy Colbert APRN.CNP - 05/23/2022 10:30 AM EDT Images from the original note were not included. [facility] ([facility]) [address] [facility] [id number] OUTPATIENT VISIT May 23, 2022 10:30 [...] was previously evaluated by Dr. Montgomery in [place]. He is seen today to establish cardiology [...] stenosis Bicuspid aortic valve Bipolar 1 disorder ([facility]) Chronic obstructive pulmonary disease (COPD) ([facility]) Coronary artery disease Degenerative disc disease sees Dr. Sellers Diabetic neuropathy ([facility]) DM (diabetes mellitus) ([facility]) HTN (hypertension) Hyperkalemia Hyperlipidemia Hypogonadism male LVH (left ventricular hypertrophy) Morbid obesity ([facility]) MANISH on CPAP Pain management Dr. [...] Disease Brother other (Myocardial infarc) Brother Fatal SC Social History Tobacco Use Smoking status: Every [...] 2 mL 11 flash glucose scanning reader (TappitSTYLE ANAHI 2 READER) DMII, insulin requiring. Testing [...] mouth three times daily. 0 Blood-Glucose Meter [facility] Dispense 1 kit 1 Each [...] injection (DEFINITY) INTRAVENOUS DIRECTED PRN Kathy Colbert APRN.SEASONER HAND sodium chloride 0.9 % (flush) 10 mL (BD POSIFLUSH) 10 mL INTRAVENOUS DIRECTED PRN Kathy Colbert APRN.SEASONER HAND perflutren lipid microspheres 1.3 mL in NaCl [...] 23, 2022, 9:18 AM documented in this encounterNewark Hospital04-07-2023 History of Present illness Narrative* Alyson [...] by mouth three times daily. Blood-Glucose Meter [facility] Dispense 1 kit Current Facility-Administered [...] stenosis Bicuspid aortic valve Bipolar 1 disorder ([facility]) Chronic obstructive pulmonary disease (COPD) ([facility]) Coronary artery disease Degenerative disc disease sees Dr. Sellers Diabetic neuropathy ([facility]) DM (diabetes mellitus) ([facility]) HTN (hypertension) Hyperkalemia Hyperlipidemia Hypogonadism male LVH (left ventricular hypertrophy) Morbid obesity ([facility]) MANISH on CPAP Pain management Dr. [...] Disease Brother other (Myocardial infarc) Brother Fatal SC Social History Tobacco Use Smoking status: Every [...] neuropathy, with long-term current use of insulin ([facility]) - ICD9: 250.60, 357.2, V58.67, ICD10: E11.40, Z79.4 (primary diagnosis) - Controlled - get labs. - CONSULT TO OPHTHALMOLOGY 2. Encounter for immunization - ICD9: V03.89, ICD10: Z23 - PNEUMOCOCCAL VACCINE (PREVNAR 20) - [employer] COVID-19 BIVALENT BOOSTER VACCINE, AGE 12+ YR 3. Morbid obesity with BMI of 50.0-59.9, adult ([facility]) - ICD9: 278.01, V85.43, ICD10: E66.01, Z68.43 - work on diet. 4. Chronic bronchitis, simple (HCC) - ICD9: 491.0, ICD10: J41.0 - continue [...] COLOGUARD Alyson Arthur MD documented in this encounterNewark Hospital04-05-2023 Miscellaneous Notes* Telephone Encounter - Aminah Escudero LPN - 05/18/2022 5:19 PM EDT Completed and faxed. * Telephone Encounter - Bebeto Haro LPN - 05/18/2022 4:16 PM EDT Type of form: DME/CPAP supplies Form received via fax When form is completed, Fax form to [phone] Form has been forwarded to Physician Mailbox: Dr. Jerson Haro LPN documented in this encounterNewark Hospital03-07-2023 History of Present illness Narrative* Gissell Roman - 04/19/2022 12:30 PM EST Kiel Catherine is identified through a medication adherence outreach initiative based on pharmacy claims data from [employer] (insurer) for Statin medication(s). Patient is reviewed [...] fill date per reconcile dispense Gissell Roman Regional Director Of Admissions documented in this encounterNewark Hospital02-07-2023 History of Present illness Narrative* Aria [...] Gap or Scheduling/Wellness visits Payer: Payor: [employer] / Plan: [employer]FF J[employer]HU[employer]IE HMO / Product Type: HMO / Care [...] 22, 2022 9:10 AM documented in this encounterNewark Hospital02-06-2023 Miscellaneous Notes* Telephone Encounter - Tony [...] you. Tony Palma RN documented in this encounterNewark Hospital01-18-2023 Miscellaneous Notes* Telephone Encounter - July Perez LPN - 03/02/2022 11:47 AM EST Patient has [...] you. July Perez LPN documented in this encounterNewark Hospital01-03-2023 Miscellaneous Notes* Telephone Encounter - Apple Allen RN - 02/15/2022 1:47 PM EST Kate from [facility] calls and states that they have not been able to get Trulicity 3 mg in stock. Kate asking if provider can write a prescription for Trulicity 1.5 mg and for patient to take 2 injections a week to equal 3 mg? Please review and advise, Apple Allen RN documented in this encounterNewark Hospital12-22-2022 Miscellaneous Notes* Telephone Encounter - Joan [...] you. Joan Gallardo RN documented in this encounterNewark Hospital11-14-2022 Miscellaneous Notes* Telephone Encounter - [facility] - 12/27/2021 12:47 PM EST Patient has been identified by name and date of : Yes Requested Prescriptions Pending Prescriptions Disp Refills insulin glargine (LANTUS SOLOSTAR U-100 INSULIN) 100 unit/mL (3 mL) 6 Each 1 Sig: Inject 20 Units subcutaneously daily at bedtime. RX INSTRUCTIONS: Patient aware RX will be sent to pharmacy. No need to notify patient. [facility] documented in this encounterNewark Hospital10-05-2022 Miscellaneous Notes* Telephone Encounter - Marley Bradley LPN - 11/17/2021 11:44 AM EDT [facility] calling for refill ESSIE: 10/22/21 NOV: 11/22/21 Last Refill: 10/15/21 #120 0 refills Marley Bradley LPN documented in this [facility]10-03-2022 Miscellaneous Notes* Telephone Encounter - Scott [...] 320 Apple Allen RN documented in this encounterNewark Hospital09-23-2022 Miscellaneous Notes* Telephone Encounter - Alyson [...] 03/20/2020 9.4 Please advise. Thank you. Tony Babulski, RN documented in this encounterNewark Hospital09-22-2022 Miscellaneous Notes* Telephone Encounter - Allison Omalley - 11/04/2021 8:37 AM EDT Tried patient at # [phone] with no answer. VM verified. Left detailed message explaining that we needed to speak with him regarding his elevated A1c and change to insulin. Advised him to call back. Tried other # on file [phone] and received busy signal multiple times. Letter [...] M Gregory Barton, PA-C documented in this encounterNewark Hospital09-21-2022 History of Present illness Narrative* Miriam Smith MA - 11/03/2021 11:35 AM EDT POPULATION HEALTH NAVIGATION OUTREACH Action/FYI Patient due for colonoscopy and flu. Left message to call office. 11/03/2021 1:24 PM Pt identified by name and : NO Outreach Outcome/Action Unable to reach patient: Left message Did you use a PCP flex slot to schedule this appointment? N/A Reason for Outreach Care Gap or Scheduling/Wellness visits Payer: Payor: N-Trig / Plan: [employer] HMO / Product Type: HMO / Care [...] 03, 2021 1:23 PM documented in this encounterNewark Hospital09-09-2022 History of Present illness Narrative* Scott Livingston PA-C - 10/22/2021 2:23 PM EDT 61 year old male new to mo with c/o here for wellness visit and problem review. Concerned about diabetes and recent prednisone 10/18/2021 patient presented to [facility] with complaints of runny nose, headache, shortness of breath which he states has been persistent over approximately 2 months. Patient's home O2 satswere running 91%, usually 96 to 97% patient sent to [facility] emergency department. Has been sick over 2 months with respiratory illness but later identifies since former visit in 12/13/20 and 01/04/2021. 10/18/2021 presented to [facility] ER with complaint of same cough with history of bronchitis and asthma in the past. At that time denied chest pain, fever, chills, body aches, nausea, vomiting or diarrhea. Vital signs 97.8 [id number], recheck 164/66, 94% on room air. Chest [...] Restrictive lung disease Chronic bronchitis, simple (hcc) Labelling Machine Operator: none currently. Interval history: 02/20/2013 Dr. [...] day when sick. Bipolar 1 disorder ([facility]) Current medications: Not taking meds: stopped Fluoxetine, Quetiapine Feels he is doing well, able to manage depressive episodes. Morbid obesity with bmi of 50.0-59.9, adult (formerly [facility]) Vitals 01/04/2021 05/03/2021 10/18/2021 10/22/2021 BODY MASS [...] Disease Brother other (Myocardial infarc) Brother Fatal SC PAST MEDICAL HISTORY Diagnosis Date Anxiety Atrial septal defect and mitral stenosis Bicuspid aortic valve Bipolar 1 disorder ([facility]) Chronic obstructive pulmonary disease (COPD) ([facility]) Coronary artery disease Degenerative disc disease sees Dr. Sellers Diabetic neuropathy ([facility]) DM (diabetes mellitus) ([facility]) HTN (hypertension) Hyperkalemia Hyperlipidemia Hypogonadism male [...] Diabetic Neuropathy, With Long-Term Current Use of Insulin(Hcc) Hyperlipidemia Htn (Hypertension) Ddd (Degenerative Disc Disease), Lumbar Bipolar 1 Disorder (Hcc) Morbid Obesity With Bmi of 50.0-59.9, Adult (Hcc) Lvh (Left Ventricular Hypertrophy) Chronic Bronchitis, Simple (Hcc) Hypogonadism Male Ulnar Neuropathy of Left Upper Extremity Tendinitis of Left Wrist Microalbuminuria Nonrheumatic Aortic Valve Stenosis Type 2 Diabetes Mellitus With Microalbuminuria, With Long-Term Current Use of Insulin (Hcc) Current Outpatient Medications Medication Sig Dispense Refill [...] mg by mouth twice daily. Blood-Glucose Meter [facility] Dispense 1 kit 1 Each [...] none. Tobacco use: 1.25 ppd. Caffeine use: [place] [employer] Diet 96oz. ETOH use: none. Marijuana use: none. [...] % (FLUSH) INJECTION SYRINGE - INSERT IV (MA,OH) - DEFINITY CONTRAST - IV DISCONTINUE - [...] which included preparing to see the patient, [id number] patient care, completing clinical documentation, obtaining and/or reviewing separately obtained history, performing a medically appropriate examination, counseling and educating the pat ient/family/caregiver, ordering medications, tests, or procedures, communicating with other HCPs (not separately reported), independently interpreting results (not separately reported), communicatingresults to the patient/family/caregiver, and care coordination (not separately reported). Scott Livingston PA-C documented in this encounterNewark Hospital09-02-2022 Miscellaneous Notes* Telephone Encounter - Bebeto [...] you. Scott Cabrera RN documented in this encounterNewark Hospital08-11-2022 History of Present illness Narrative* Apple Lear Population Health Navigator - 09/23/2021 1:51 PM EDT POPULATION HEALTH NAVIGATION OUTREACH Action/FYI Vm left for a return call Due for wellness, colonoscopy, A1c, GAUDENCIO Pt identified by name and : NO Outreach Outcome/Action Unable to reach patient: Left message Did you use a PCP flex slot to schedule this appointment? No Reason for Outreach Care Gap or Scheduling/Wellness visits Payer: Payor: N-Trig / Plan: [employer] HMO / Product Type: HMO / Care [...] 23, 2021 1:52 PM documented in this encounterNewark Hospital08-04-2022 Miscellaneous Notes* Telephone Encounter - July Perez LPN - 09/16/2021 1:36 PM EDT Patient has [...] you. July Perez LPN documented in this encounterNewark Hospital07-12-2022 Miscellaneous Notes* Telephone Encounter - Yoly [...] patient. Yoly Murray LPN documented in this encounterNewark Hospital06-07-2022 Miscellaneous Notes* Telephone Encounter - Apple [...] you. Apple Allen RN documented in this encounterNewark Hospital06-02-2022 History of Present illness Narrative* Nga [...] Care Gap or Scheduling/Wellness visits Payer: Payor: [employer] / Plan: [employer] HMO / Product Type: HMO / Care [...] 15, 2021 10:22 AM documented in this encounterNewark Hospital05-12-2022 Miscellaneous Notes* Telephone Encounter - Ya [...] patient. Ya Brewster Pss documented in this encounterNewark Hospital05-02-2022 History of Present illness Narrative* Karen Romero RN - 06/14/2021 9:56 AM EDT [employer] [facility] Enrollment Provider Action/FYI: will have pt return call Patient referred by: [facility] Miguelito Contact made with patient: Yes - Patient identified by name and . Discussed care with patient Saeed this is Karen Gallagher RN and I am calling from [facility]. I am a RN Air Pollution Compliance Inspector with our [employer] Chronic Disease Management program. [...] few questions once a week through your [employer] account. It will automatically show up for [...] patient in a month. documented in this encounterNewark Hospital04-15-2022 Miscellaneous Notes* Telephone Encounter - Alexandra [...] you. Alexandra Osborn LPN documented in this encounterNewark Hospital11-15-2021 History of Present illness Narrative* Ana Maria Preston, RT(R) - 12/28/2020 4:30 PM EST Radiology [...] 28, 2020 4:36 PM documented in this encounterNewark Hospital10-04-2021 Miscellaneous Notes* Telephone Encounter - Marley Bradley LPN - 11/16/2020 3:12 PM EDT [facility] calling for refills. ESSIE: 06/18/20 NOV: None scheduled Marley Bradley LPN documented in this encounterNewark Hospital03-03-2021 History of Present illness Narrative* Martha Mobley (Rt), Tech - 04/15/2020 3:50 PM EST Radiology Service [...] 15, 2020 4:12 PM documented in this encounterNewark Hospital04-01-2014 History of Past illness Narrative* Problem Noted Date Resolved Date Tendinitis of left wrist 05/14/2013 023 Atrial septal defect and mitral stenosis 11/30/2012 documented as of this encounter (statuses as of 05/21/2022) [facility] of Past illness Narrative* Problem Noted Date Resolved Date Tendinitis of left wrist 05/14/2013 023 Atrial septal defect and mitral stenosis 11/30/2012 documented as of this encounter (statuses as of 05/23/2022) [facility] of Past illness Narrative* Problem Noted Date Resolved Date Tendinitis of left wrist 05/14/2013 023 Atrial septal defect and mitral stenosis 11/30/2012 documented as of this encounter (statuses as of 05/25/2022) [facility] of Past illness Narrative* Problem Noted Date Resolved Date Tendinitis of left wrist 05/14/2013 023 Atrial septal defect and mitral stenosis 11/30/2012 documented as of this encounter (statuses as of 05/30/2022) [facility] of Past illness Narrative* Problem Noted Date Resolved Date Tendinitis of left wrist 05/14/2013 023 Atrial septal defect and mitral stenosis 11/30/2012 documented as of this encounter (statuses as of 05/31/2022) [facility] of Past illness Narrative* Problem Noted Date Resolved Date Tendinitis of left wrist 05/14/2013 023 Atrial septal defect and mitral stenosis 11/30/2012 documented as of this encounter (statuses as of 06/25/2022) [facility] History of Past illness Narrative* Problem Noted Date Resolved Date Tendinitis of left wrist 05/14/2013 023 Atrial septal defect and mitral stenosis 11/30/2012 documented as of this encounter (statuses as of 06/29/2022) [facility] History of Past illness Narrative* Problem Noted Date Resolved Date Tendinitis of left wrist 05/14/2013 023 Atrial septal defect and mitral stenosis 11/30/2012 documented as of this encounter (statuses as of 07/15/2022) [facility] History of Past illness Narrative* Problem Noted Date Resolved Date Tendinitis of left wrist 05/14/2013 023 Atrial septal defect and mitral stenosis 11/30/2012 documented as of this encounter (statuses as of 07/16/2022) [facility] History of Past illness Narrative* Problem Noted Date Resolved Date Tendinitis of left wrist 05/14/2013 023 Atrial septal defect and mitral stenosis 11/30/2012 documented as of this encounter (statuses as of 07/20/2022) [facility] History of Past illness Narrative* Problem Noted Date Resolved Date Tendinitis of left wrist 05/14/20132 023 Atrial septal defect and mitral stenosis 11/30/2012 documented as of this encounter (statuses as of 08/09/2022) [facility] History of Past illness Narrative* Problem Noted Date Resolved Date Tendinitis of left wrist 05/14/2013 023 Atrial septal defect and mitral stenosis 11/30/2012 documented as of this encounter (statuses as of 08/10/2022) [facility] History of Past illness Narrative* Problem Noted Date Resolved Date Tendinitis of left wrist 05/14/2013 023 Atrial septal defect and mitral stenosis 11/30/2012 documented as of this encounter (statuses as of 08/13/2022) [facility] History of Past illness Narrative* Problem Noted Date Resolved Date Tendinitis of left wrist 05/14/2013 023 Atrial septal defect and mitral stenosis 11/30/2012 documented as of this encounter (statuses as of 08/18/2022) [facility] History of Past illness Narrative* Problem Noted Date Diagnosed Date Resolved Date Tendinitis of left wrist 05/14/201308/2022 Atrial septal defect and mitral stenosis 11/30/2012 documented as of this encounter (statuses as of 09/29/2022) [facility] History of Past illness Narrative* Problem Noted Date Diagnosed Date Resolved Date Tendinitis of left wrist 05/14/201308/2022 Atrial septal defect and mitral stenosis 11/30/2012 documented as of this encounter (statuses as of 10/03/2022) [facility] History of Past illness Narrative* Problem Noted Date Diagnosed Date Resolved Date Tendinitis of left wrist 05/14/201308/2022 Atrial septal defect and mitral stenosis 11/30/2012 documented as of this encounter (statuses as of 10/04/2022) [facility] History of Past illness Narrative* Problem Noted Date Diagnosed Date Resolved Date Tendinitis of left wrist 05/14/201308/2022 Atrial septal defect and mitral stenosis 11/30/2012 documented as of this encounter (statuses as of 10/05/2022) [facility] History of Past illness Narrative* Problem Noted Date Diagnosed Date Resolved Date Tendinitis of left wrist 05/14/201308/2022 Atrial septal defect and mitral stenosis 11/30/2012 documented as of this encounter (statuses as of 10/07/2022) [place] [address]-01-2014 History of Past illness Narrative* Problem Noted Date Diagnosed Date Resolved Date Tendinitis of left wrist 05/14/201308/2022 Atrial septal defect and mitral stenosis 11/30/2012 documented as of this encounter (statuses as of 10/12/2022) [facility] History of Past illness Narrative* Problem Noted Date Diagnosed Date Resolved Date Tendinitis of left wrist 05/14/201308/2022 Atrial septal defect and mitral stenosis 11/30/2012 documented as of this encounter (statuses as of 10/14/2022) [facility] History of Past illness Narrative* Problem Noted Date Diagnosed Date Resolved Date Tendinitis of left wrist 05/14/201308/2022 Atrial septal defect and mitral stenosis 11/30/2012 documented as of this encounter (statuses as of 10/20/2022) [facility] History of Past illness Narrative* Problem Noted Date Diagnosed Date Resolved Date Tendinitis of left wrist 05/14/201308/2022 Atrial septal defect and mitral stenosis 11/30/2012 documented as of this encounter (statuses as of 10/26/2022) [facility] History of Past illness Narrative* Problem Noted Date Diagnosed Date Resolved Date Tendinitis of left wrist 05/14/201308/2022 Atrial septal defect and mitral stenosis 11/30/2012 documented as of this encounter (statuses as of 10/26/2022) [facility] History of Past illness Narrative* Problem Noted Date Diagnosed Date Resolved Date Tendinitis of left wrist 05/14/201308/2022 Atrial septal defect and mitral stenosis 11/30/2012 documented as of this encounter (statuses as of 10/27/2022) [facility] History of Past illness Narrative* Problem Noted Date Diagnosed Date Resolved Date Tendinitis of left wrist 05/14/201308/2022 Atrial septal defect and mitral stenosis 11/30/2012 documented as of this encounter (statuses as of 10/31/2022) [facility] History of Past illness Narrative* Problem Noted Date Diagnosed Date Resolved Date Tendinitis of left wrist 05/14/201308/2022 Atrial septal defect and mitral stenosis 11/30/2012 documented as of this encounter (statuses as of 11/01/2022) [facility] History of Past illness Narrative* Problem Noted Date Diagnosed Date Resolved Date Tendinitis of left wrist 05/14/201308/2022 Atrial septal defect and mitral stenosis 11/30/2012 documented as of this encounter (statuses as of 11/02/2022) [facility] History of Past illness Narrative* Problem Noted Date Diagnosed Date Resolved Date Tendinitis of left wrist 05/14/201308/2022 Atrial septal defect and mitral stenosis 11/30/2012 documented as of this encounter (statuses as of 11/09/2022) [facility] History of Past illness Narrative* Problem Noted Date Diagnosed Date Resolved Date Tendinitis of left wrist 05/14/201308/2022 Atrial septal defect and mitral stenosis 11/30/2012 documented as of this encounter (statuses as of 11/19/2022) [facility] History of Past illness Narrative* Problem Noted Date Diagnosed Date Resolved Date Tendinitis of left wrist 05/14/201308/2022 Atrial septal defect and mitral stenosis 11/30/2012 documented as of this encounter (statuses as of 11/22/2022) [facility] History of Past illness Narrative* Problem Noted Date Diagnosed Date Resolved Date Tendinitis of left wrist 05/14/201308/2022 Atrial septal defect and mitral stenosis 11/30/2012 documented as of this encounter (statuses as of 11/24/2022) [facility] History of Past illness Narrative* Problem Noted Date Diagnosed Date Resolved Date Tendinitis of left wrist 05/14/201308/2022 Atrial septal defect and mitral stenosis 11/30/2012 documented as of this encounter (statuses as of 11/25/2022) [facility] History of Past illness Narrative* Problem Noted Date Diagnosed Date Resolved Date Tendinitis of left wrist 05/14/201308/2022 Atrial septal defect and mitral stenosis 11/30/2012 documented as of this encounter (statuses as of 11/25/2022) [facility] History of Past illness Narrative* Problem Noted Date Diagnosed Date Resolved Date Tendinitis of left wrist 05/14/201308/2022 Atrial septal defect and mitral stenosis 11/30/2012 documented as of this encounter (statuses as of 11/30/2022) [facility] History of Past illness Narrative* Problem Noted Date Diagnosed Date Resolved Date Tendinitis of left wrist 05/14/201308/2022 Atrial septal defect and mitral stenosis 11/30/2012 documented as of this encounter (statuses as of 12/01/2022) [facility] History of Past illness Narrative* Problem Noted Date Diagnosed Date Resolved Date Tendinitis of left wrist 05/14/201308/2022 Atrial septal defect and mitral stenosis 11/30/2012 documented as of this encounter (statuses as of 12/01/2022) [facility] History of Past illness Narrative* Problem Noted Date Diagnosed Date Resolved Date Tendinitis of left wrist 05/14/201308/2022 Atrial septal defect and mitral stenosis 11/30/2012 documented as of this encounter (statuses as of 12/07/2022) [facility] History of Past illness Narrative* Problem Noted Date Diagnosed Date Resolved Date Tendinitis of left wrist 05/14/201308/2022 Atrial septal defect and mitral stenosis 11/30/2012 documented as of this encounter (statuses as of 12/09/2022) [facility] History of Past illness Narrative* Problem Noted Date Diagnosed Date Resolved Date Tendinitis of left wrist 05/14/201308/2022 Atrial septal defect and mitral stenosis 11/30/2012 documented as of this encounter (statuses as of 12/09/2022) [facility] History of Past illness Narrative* Problem Noted Date Diagnosed Date Resolved Date Tendinitis of left wrist 05/14/201308/2022 Atrial septal defect and mitral stenosis 11/30/2012 documented as of this encounter (statuses as of 12/13/2022) [facility] History of Past illness Narrative* Problem Noted Date Diagnosed Date Resolved Date Tendinitis of left wrist 05/14/201308/2022 Atrial septal defect and mitral stenosis 11/30/2012 documented as of this encounter (statuses as of 12/18/2022) [facility] History of Past illness Narrative* Problem Noted Date Diagnosed Date Resolved Date Tendinitis of left wrist 05/14/201308/2022 Atrial septal defect and mitral stenosis 11/30/2012 documented as of this encounter (statuses as of 12/21/2022) [facility] History of Past illness Narrative* Problem Noted Date Diagnosed Date Resolved Date Tendinitis of left wrist 05/14/201308/2022 Atrial septal defect and mitral stenosis 11/30/2012 documented as of this encounter (statuses as of 12/22/2022) [facility] History of Past illness Narrative* Problem Noted Date Diagnosed Date Resolved Date Tendinitis of left wrist 05/14/201308/2022 Atrial septal defect and mitral stenosis 11/30/2012 documented as of this encounter (statuses as of 12/27/2022) [facility] History of Past illness Narrative* Problem Noted Date Diagnosed Date Resolved Date Tendinitis of left wrist 05/14/201308/2022 Atrial septal defect and mitral stenosis 11/30/2012 documented as of this encounter (statuses as of 12/28/2022) [facility] History of Past illness Narrative* Problem Noted Date Diagnosed Date Resolved Date Tendinitis of left wrist 05/14/201308/2022 Atrial septal defect and mitral stenosis 11/30/2012 documented as of this encounter (statuses as of 12/30/2022) [address]01-[address] History of Past illness Narrative* Problem Noted Date Diagnosed Date Resolved Date Tendinitis of left wrist 05/14/201308/2022 Atrial septal defect and mitral stenosis 11/30/2012 documented as of this encounter (statuses as of 01/10/2023) [address]01[address]2014 History of Past illness Narrative* Problem Noted Date Diagnosed Date Resolved Date Tendinitis of left wrist 05/14/201308/2022 Atrial septal defect and mitral stenosis 11/30/2012 documented as of this encounter (statuses as of 01/28/2023) [address]01[address]2014 History of Past illness Narrative* Problem Noted Date Diagnosed Date Resolved Date Tendinitis of left wrist 05/14/201308/2022 Atrial septal defect and mitral stenosis 11/30/2012 documented as of this encounter (statuses as of 03/17/2023) [place] [address]-01-2014 History of Past illness Narrative* Problem Noted Date Diagnosed Date Resolved Date Tendinitis of left wrist 05/14/201308/2022 Atrial septal defect and mitral stenosis 11/30/2012 documented as of this encounter (statuses as of 03/17/2023) [place] [address]-01-2014 History of Past illness Narrative* Problem Noted Date Diagnosed Date Resolved Date Tendinitis of left wrist 05/14/201308/2022 Atrial septal defect and mitral stenosis 11/30/2012 documented as of this encounter (statuses as of 03/17/2023) [place] [address]-01-2014 History of Past illness Narrative* Problem Noted Date Diagnosed Date Resolved Date Tendinitis of left wrist 05/14/201308/2022 Atrial septal defect and mitral stenosis 11/30/2012 documented as of this encounter (statuses as of 03/17/2023) [place] [address]01-2014 History of Past illness Narrative* Problem Noted Date Diagnosed Date Resolved Date Tendinitis of left wrist 05/14/201308/2022 Atrial septal defect and mitral stenosis 11/30/2012 documented as of this encounter (statuses as of 03/17/2023) [facility] History of Past illness Narrative* Problem Noted Date Diagnosed Date Resolved Date Tendinitis of left wrist 05/14/201308/2022 Atrial septal defect and mitral stenosis 11/30/2012 documented as of this encounter (statuses as of 03/19/2023) [facility] History of Past illness Narrative* Problem Noted Date Resolved Date Atrial septal defect and mitral stenosis 11/30/2012 documented as of this encounter (statuses as of 05/28/2021) [facility] History of Past illness Narrative* Problem Noted Date Resolved Date Atrial septal defect and mitral stenosis 11/30/2012 documented as of this encounter (statuses as of 06/14/2021) [facility] History of Past illness Narrative* Problem Noted Date Resolved Date Atrial septal defect and mitral stenosis 11/30/2012 documented as of this encounter (statuses as of 06/23/2021) [facility] History of Past illness Narrative* Problem Noted Date Resolved Date Atrial septal defect and mitral stenosis 11/30/2012 documented as of this encounter (statuses as of 06/24/2021) [facility] History of Past illness Narrative* Problem Noted Date Resolved Date Atrial septal defect and mitral stenosis 11/30/2012 documented as of this encounter (statuses as of 07/15/2021) [facility] History of Past illness Narrative* Problem Noted Date Resolved Date Atrial septal defect and mitral stenosis 11/30/2012 documented as of this encounter (statuses as of 07/20/2021) [facility] History of Past illness Narrative* Problem Noted Date Resolved Date Atrial septal defect and mitral stenosis 11/30/2012 documented as of this encounter (statuses as of 08/24/2021) [facility] History of Past illness Narrative* Problem Noted Date Resolved Date Atrial septal defect and mitral stenosis 11/30/2012 documented as of this encounter (statuses as of 09/16/2021) [facility] History of Past illness Narrative* Problem Noted Date Resolved Date Atrial septal defect and mitral stenosis 11/30/2012 documented as of this encounter (statuses as of 09/23/2021) [facility] History of Past illness Narrative* Problem Noted Date Resolved Date Atrial septal defect and mitral stenosis 11/30/2012 documented as of this encounter (statuses as of 10/15/2021) [facility] History of Past illness Narrative* Problem Noted Date Resolved Date Atrial septal defect and mitral stenosis 11/30/2012 documented as of this encounter (statuses as of 10/23/2021) [facility] History of Past illness Narrative* Problem Noted Date Resolved Date Atrial septal defect and mitral stenosis 11/30/2012 documented as of this encounter (statuses as of 11/03/2021) [facility] History of Past illness Narrative* Problem Noted Date Resolved Date Atrial septal defect and mitral stenosis 11/30/2012 documented as of this encounter (statuses as of 11/04/2021) [facility] History of Past illness Narrative* Problem Noted Date Resolved Date Atrial septal defect and mitral stenosis 11/30/2012 documented as of this encounter (statuses as of 11/05/2021) [facility] History of Past illness Narrative* Problem Noted Date Resolved Date Atrial septal defect and mitral stenosis 11/30/2012 documented as of this encounter (statuses as of 11/15/2021) [facility] History of Past illness Narrative* Problem Noted Date Resolved Date Atrial septal defect and mitral stenosis 11/30/2012 documented as of this encounter (statuses as of 11/17/2021) [facility] History of Past illness Narrative* Problem Noted Date Resolved Date Atrial septal defect and mitral stenosis 11/30/2012 documented as of this encounter (statuses as of 12/28/2021) [facility] History of Past illness Narrative* Problem Noted Date Resolved Date Atrial septal defect and mitral stenosis 11/30/2012 documented as of this encounter (statuses as of 02/04/2022) [facility] History of Past illness Narrative* Problem Noted Date Resolved Date Atrial septal defect and mitral stenosis 11/30/2012 documented as of this encounter (statuses as of 02/17/2022) [facility] History of Past illness Narrative* Problem Noted Date Resolved Date Atrial septal defect and mitral stenosis 11/30/2012 documented as of this encounter (statuses as of 03/02/2022) [facility] History of Past illness Narrative* Problem Noted Date Resolved Date Atrial septal defect and mitral stenosis 11/30/2012 documented as of this encounter (statuses as of 03/22/2022) [facility] History of Past illness Narrative* Problem Noted Date Resolved Date Atrial septal defect and mitral stenosis 11/30/2012 documented as of this encounter (statuses as of 03/22/2022) [facility] History of Past illness Narrative* Problem Noted Date Resolved Date Atrial septal defect and mitral stenosis 11/30/2012 documented as of this encounter (statuses as of 04/19/2022) [facility] History of Past illness Narrative* Problem Noted Date Resolved Date Atrial septal defect and mitral stenosis 11/30/2012 documented as of this encounter (statuses as of 05/19/2022) [facility] Raj Stevenson [facility] June 22, 2023 4:32pm Note Date/Time June 22, 2023 4:32pm [facility] Medical Records Department [address] [place] [address] Consultation - Surgical 06/22/23 1625 MR#: [id number] Acct: [id number] Name: KIEL CATHERINE Rep #:[id number] : 1960 62 From: Raj márquez [...] his blood thinners. Raj Stevenson MD Pager: [facility] [address] [place] [address], [address] [place] [phone] Office: HPI Consult Data Date of Consult: 06/22/23 HPI Narrative HPI Narrative: KIEL CATHERINE, is a 62 M who presents with nausea and vomiting. The patient has a complicated medical history. He also is a poor historian. Patient says that he had bicuspid valve replacement in March [facility]. He says hehad a CVA during the surgery. He says that he developed a bowel obstruction after the surgery. He has had 2 other bowel obstructions treated at [facility]. He says they were treated nonoperatively. The patient reports no previous abdominal surgeries. He says his mid upper abdomen is painful. He says he had a bowel movement yesterday and feels like he has to have another 1. He denies acute pain and says that it comes and goes. [facility] Medical History Anxiety Asthma Atherosclerotic heart disease of [place] coronary artery without angina pectoris Atrial septal [...] (Auto) 77.0 H, Lymph % (Auto) 12.5 L,[place] % (Auto) 9.6, Eos % (Auto) 0.1, [...] Clarity Clear, Urine pH 5.0, Ur Specific [place] 1.025, Urine Protein 30 H, Urine Glucose [...] applicable): CC: Dr. Alyson Arthur MD~ Signed [facility] Work Phone: Evaluation note* Diagnosis GERD without esophagitis Esophageal reflux Type 2 diabetes mellitus without complication, without long-term current use of insulin (HCC) Dyspnea, unspecified type Chronic obstructive pulmonary disease, unspecified COPD type (HCC) DDD (degenerative disc disease), lumbar Degeneration of lumbar or lumbosacral intervertebral disc documented in this encounter [facility] note* Diagnosis GERD without esophagitis- Primary Esophageal reflux DDD (degenerative disc disease), lumbar Degeneration of lumbar or lumbosacral intervertebral disc documented in this encounter [facility] note* Diagnosis Type 2 diabetes mellitus without complication, without long-term current use of insulin (HCC) GERD without esophagitis Esophageal reflux DDD (degenerative disc disease), lumbar Degeneration of lumbar or lumbosacral intervertebral disc documented in this encounter [facility] noteNo assessment information availableWCleveland Clinic [facility] Work Phone: Evaluation note* Diagnosis DDD (degenerative disc disease), lumbar Degeneration of lumbar or lumbosacral intervertebral disc [facility] Diagnosis DDD (degenerative disc disease), lumbar Degeneration of lumbar or lumbosacral intervertebral disc [facility] DDD (degenerative disc disease), lumbar Degeneration of lumbar or lumbosacral intervertebral disc Type 2 diabetes mellitus without complication, without long-term current use of insulin (HCC) [facility] Diagnosis Nonrheumatic aortic valve stenosis- Primary [...] Morbid obesity with BMI of 50.0-59.9, adult ([facility]) Morbid obesity GERD without esophagitis Esophageal reflux Age-related cataract of both eyes, unspecified age-related cataract type Vitamin D deficiency Unspecified vitamin D deficiency Fatigue, unspecified type Current use of proton pump inhibitor Encounter for long-term (current) use of other medications Nocturnal oxygen desaturation Idiopathic sleep related nonobstructive alveolar hypoventilation [facility]* Diagnosis Controlled type 2 diabetes mellitus with diabetic neuropathy, with long-term current use of insulin (HCC)- Primary [facility] Diagnosis Controlled type 2 diabetes mellitus with diabetic neuropathy, with long-term current use of insulin (HCC)- Primary [facility] Diagnosis DDD (degenerative disc disease), lumbar Degeneration of lumbar or lumbosacral intervertebral disc [facility]* Diagnosis DDD (degenerative disc disease), lumbar Degeneration of lumbar or lumbosacral intervertebral disc [facility] Diagnosis Controlled type 2 diabetes mellitus with diabetic neuropathy, with long-term current use of insulin (HCC)- Primary [facility]* Diagnosis Controlled type 2 diabetes mellitus with diabetic neuropathy, with long-term current use of insulin (HCC) [facility] Diagnosis Controlled type 2 diabetes mellitus with diabetic neuropathy, with long-term current use of insulin (HCC)- Primary Encounter for immunization Need for other [...] malignant neoplasms, colon [facility]* Diagnosis Nonrheumatic aortic valve stenosis- Primary Aortic valve disorders Bicuspid aortic valve Congenital insufficiency of aortic valve Edema, unspecified type Chronic diastolic heart failure (HCC) Chronic diastolic heart failure Hyperlipidemia, unspecified hyperlipidemia type Primary hypertension Unspecified essential hypertension Controlled type 2 diabetes mellitus with diabetic neuropathy, with long-term current use of insulin ([facility]) Morbid obesity with BMI of 50.0-59.9, adult ([facility]) Morbid obesity [facility] Diagnosis Type 2 diabetes mellitus without retinopathy ([facility])- Primary Type II or unspecified type diabetes mellitus without mention of complication, not stated as uncontrolled Combined forms of age-related cataract of both eyes Other and combined forms of senile cataract Dry eye syndrome of bilateral lacrimal glands Tear film insufficiency, unspecified Glaucoma suspect of both eyes Preglaucoma, unspecified [facility]* Diagnosis GERD without esophagitis Esophageal reflux Type 2 diabetes mellitus without complication, without long-term current use of insulin ([facility]) [facility]* Diagnosis Primary hypertension- Primary Unspecified essential hypertension Controlled type 2 diabetes mellitus with diabetic neuropathy, with long-term current use of insulin ([facility]) Chronic back pain, unspecified back location, unspecified back pain laterality documented [facility]* Diagnosis Type 2 diabetes mellitus without retinopathy ([facility])- Primary Type II or unspecified type diabetes mellitus without mention of complication, not stated as uncontrolled Combined forms of age-related cataract of both eyes Other and combined forms of senile cataract Dry eye syndrome of bilateral lacrimal glands Tear film insufficiency, unspecified Glaucoma suspect of both eyes Preglaucoma, unspecified [facility] Diagnosis Encounter for screening for lung cancer- Primary Tobacco use current [facility]* Diagnosis DDD (degenerative disc disease), lumbar Degeneration of lumbar or lumbosacral intervertebral disc [facility]* Diagnosis MANISH (obstructive sleep apnea)- Primary Obstructive sleep apnea (adult) (pediatric) documented [facility]* Diagnosis Bilateral leg edema- Primary Edema [facility]* Diagnosis Dyspnea, unspecified type Chronic obstructive pulmonary disease, unspecified COPD type ([facility]) [facility]* Diagnosis DDD (degenerative disc disease), lumbar- Primary Degeneration of lumbar or lumbosacral intervertebral disc Morbid obesity with BMI of 50.0-59.9, adult ([facility]) Morbid obesity LVH (left ventricular hypertrophy) Cardiomegaly Restrictive lung disease Other diseases of lung, not elsewhere classified [facility]* Diagnosis Lumbar radiculopathy- Primary Thoracic or [...] Morbid obesity with BMI of 50.0-59.9, adult ([facility]) Morbid obesity Microalbuminuria Proteinuria [facility]* Diagnosis Aortic valve stenosis, etiology of cardiac valve disease unspecified- Primary Bicuspid aortic valve Congenital insufficiency of aortic valve documented [facility]* Diagnosis Bicuspid aortic valve Congenital insufficiency of aortic valve Nonrheumatic aortic valve stenosis Aortic valve disorders [facility]* Diagnosis Controlled type 2 diabetes mellitus with diabetic neuropathy, with long-term current use of insulin (HCC) [facility] Diagnosis Onset Date Resolution Status Pneumonia acute COPD exacerbation chronic [facility] Work Phone: Evaluation note* Diagnosis Controlled type 2 diabetes mellitus with diabetic neuropathy, with long-term current use of insulin (HCC) documented [facility]* Diagnosis Open wound of right lower extremity, subsequent encounter- Primary documented in this encounter [facility] note* Diagnosis Bacterial pneumonia- Primary Bacterial pneumonia, [...] of unspecified site [facility]* Diagnosis Cutaneous abscess of right lower extremity Cellulitis and abscess of leg, except foot Cellulitis of skin Cellulitis and abscess of unspecified site documented [facility]* Diagnosis Encounter for preprocedural cardiovascular examination- Primary Pre-operative cardiovascular examination Sleep apnea, unspecified type Bicuspid aortic valve Congenital insufficiency of aortic valve Nonrheumatic aortic valve stenosis Aortic valve disorders Preoperative testing Preoperative examination, unspecified [facility]* Diagnosis Encounter for preprocedural cardiovascular examination Pre-operative cardiovascular examination Sleep apnea, unspecified type Bicuspid aortic valve Congenital insufficiency of aortic valve Nonrheumatic aortic valve stenosis Aortic valve disorders Preoperative testing Preoperative examination, unspecified Valvular heart disease Endocarditis, valve unspecified, unspecified cause [facility]* Diagnosis Encounter for preprocedural cardiovascular examination Pre-operative cardiovascular examination Sleep apnea, unspecified type Bicuspid aortic valve Congenital insufficiency of aortic valve Nonrheumatic aortic valve stenosis Aortic valve disorders Preoperative testing Preoperative examination, unspecified Valvular heart disease Endocarditis, valve unspecified, unspecified cause documented [facility]* Diagnosis Encounter for preprocedural cardiovascular examination Pre-operative cardiovascular examination Sleep apnea, unspecified type Bicuspid aortic valve Congenital insufficiency of aortic valve Nonrheumatic aortic valve stenosis Aortic valve disorders Preoperative testing Preoperative examination, unspecified Valvular heart disease Endocarditis, valve unspecified, unspecified cause [facility]* Diagnosis Encounter for preprocedural cardiovascular examination Pre-operative cardiovascular examination Sleep apnea, unspecified type Bicuspid aortic valve Congenital insufficiency of aortic valve Nonrheumatic aortic valve stenosis Aortic valve disorders Preoperative testing Preoperative examination, unspecified Valvular heart disease Endocarditis, valve unspecified, unspecified cause documented [facility]* Diagnosis Blister (nonthermal), right foot, initial encounter- Primary Bilateral lower extremity edema Edema Dependent rubor Unspecified erythematous condition Open wound of right lower extremity, subsequent encounter Controlled type 2 diabetes mellitus with diabetic neuropathy, with long-term current use of insulin ([facility]) documented in this encounter [facility] note* Diagnosis Venous insufficiency- Primary Unspecified venous (peripheral) insufficiency Diminished pulses in lower extremity Other symptoms involving cardiovascular system Ingrowing toenail Ingrowing nail Diabetic mononeuropathy associated with diabetes mellitus due to underlying condition ([facility]) Blister Other, multiple, and unspecified sites, blister, without mention of infection Blister (nonthermal), right foot, initial encounter Controlled type 2 diabetes mellitus with diabetic neuropathy, with long-term current use of insulin (HCC) Peripheral vascular disease (HCC) Peripheral vascular disease, unspecified [facility]* Diagnosis Dyspnea, unspecified type Chronic obstructive pulmonary disease, unspecified COPD type ([facility]) documented [facility]* Diagnosis Encounter for screening for lung cancer Tobacco use current [facility]* Diagnosis Severe aortic stenosis [I35.0]- Primary Aortic valve disorders [facility]* Diagnosis Preoperative testing- Primary Preoperative examination, unspecified Encounter for preprocedural cardiovascular examination Pre-operative cardiovascular examination Severe aortic stenosis Aortic valve disorders [facility]* Diagnosis DDD (degenerative disc disease), lumbar Degeneration of lumbar or lumbosacral intervertebral disc documented in this encounter [facility] note* Diagnosis Pre-op exam- Primary Preoperative examination, unspecified Controlled type 2 diabetes mellitus without complication, unspecified whether terminologist insulin use (HCC) Pre-operative cardiovascular examination Aortic valve disorder Aortic valve disorders 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) documented in this encounter [facility] note* Diagnosis Encounter for preoperative anesthesiology assessment for cardiac surgery- Primary Controlled type 2 diabetes mellitus without complication, unspecified whether mcc insulin use (HCC) Pre-operative cardiovascular examination Aortic valve disorder Aortic valve disorders 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) documented in this encounter [facility] note* Diagnosis Controlled type 2 diabetes mellitus without complication, unspecified whether terminologist insulin use (HCC) Pre-operative cardiovascular examination Aortic valve disorder Aortic valve disorders 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) Chronic diastolic heart failure (HCC) Chronic diastolic heart failure Chronic bronchitis, simple (HCC) Simple chronic bronchitis Morbid obesity with BMI of 50.0-59.9, adult (HCC) Morbid obesity Controlled type 2 diabetes mellitus without complication, unspecified whether mcc insulin use (HCC) Pre-operative cardiovascular examination Aortic valve disorder Aortic valve disorders 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) documented in this encounter [facility] note* Diagnosis Controlled type 2 diabetes mellitus without complication, unspecified whether terminologist insulin use (HCC) Pre-operative cardiovascular examination Aortic valve disorder Aortic valve disorders 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) Controlled type 2 diabetes mellitus without complication, unspecified whether mcc insulin use (HCC) Pre-operative cardiovascular examination Aortic valve disorder Aortic valve disorders 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) documented in this encounter [facility] note* Diagnosis Small bowel obstruction ([facility])- Primary Unspecified intestinal obstruction Right hemiparesis (HCC) Hemiplegia, unspecified, affecting unspecified side Slurred speech Other speech disturbance Mild CAD Dysarthria Arterial ischemic stroke, MCA (middle cerebral artery), left, acute ([facility]) Unspecified cerebral artery occlusion with cerebral infarction Dilatation of aorta (HCC) Aortic ectasia, unspecified site Type 2 diabetes mellitus with hyperglycemia, with long-term current use of insulin ([facility]) Pressure injury of coccygeal region, unstageable ([facility]) Pleural effusion Unspecified pleural effusion Chronic [...] of upper extremity documented in this encounter [facility] note* Diagnosis Type 2 diabetes mellitus without complication, without long-term current use of insulin ([facility]) documented in this encounter [facility] note* Diagnosis Paroxysmal atrial fibrillation (HCC)- Primary Atrial fibrillation [facility]* Diagnosis Chronic back pain, unspecified back location, unspecified back pain laterality documented in this encounter [facility] note* Diagnosis Wrist pain, acute, right- Primary documented in this encounter [facility] note* Diagnosis Aortic valve disorder- Primary Aortic valve disorders Aneurysm of ascending 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 ([facility]) H/O aortic valve replacement with tissue graft Heart valve replaced by transplant Hx of ascending aorta replacement Personal history of surgery to heart and great vessels, presenting hazards to health H/O ischemic left MCA stroke Transient ischemic attack (TIA), and cerebral infarction without residual deficits Postoperative atrial fibrillation ([facility]) Cardiac complications documented [facility]* Diagnosis Onset Date Resolution Status Small bowel obstruction [facility] Work Phone: Evaluation note* Diagnosis Onset Date Resolution Status Morbid obesity acute Small bowel obstruction [facility] Work Phone: Evaluation note* Diagnosis Chronic back pain, unspecified back location, unspecified back pain laterality Type 2 diabetes mellitus without complication, without long-term current use of insulin ([facility]) documented [facility]* Diagnosis 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)- Primary documented [facility]* Diagnosis Aneurysm of ascending 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 ([facility]) documented in this encounter [facility] note* Diagnosis Arterial ischemic stroke (HCC)- Primary Unspecified cerebral artery occlusion with cerebral infarction Right hemiparesis ([facility]) Hemiplegia, unspecified, affecting unspecified side documented in this encounter [facility] note* Diagnosis SBO (small bowel obstruction) ([facility])- Primary Unspecified intestinal obstruction [facility] Diagnosis Chronic back pain, unspecified back location, unspecified back pain laterality [facility]* Diagnosis Controlled type 2 diabetes mellitus with diabetic neuropathy, with long-term current use of insulin (HCC) [facility] Diagnosis Right hemiparesis (HCC)- Primary Hemiplegia, unspecified, affecting unspecified side Arterial ischemic stroke, MCA (middle cerebral artery), left, acute (HCC) Unspecified cerebral artery occlusion with cerebral infarction [facility]* Diagnosis Neurogenic bladder as late effect of cerebrovascular accident (CVA)- Primary [facility]* Diagnosis Type 2 diabetes mellitus without complication, without long-term current use of insulin (HCC) [facility] Diagnosis Chronic back pain, unspecified back location, unspecified back pain laterality GERD without esophagitis Esophageal reflux Mild CAD Arterial ischemic stroke, MCA (middle cerebral artery), left, acute (HCC) Unspecified cerebral artery occlusion with cerebral infarction Dilatation of aorta ([facility]) Aortic ectasia, unspecified site Bicuspid aortic valve Congenital insufficiency of aortic valve Primary hypertension Unspecified essential hypertension [facility]* Diagnosis Wrist pain, acute, right [facility]* Diagnosis Pleural effusion Unspecified pleural effusion Small bowel obstruction (HCC) Unspecified intestinal obstruction [facility]* Diagnosis Bacterial pneumonia Bacterial pneumonia, unspecified [facility]* Diagnosis Left hip pain Pain in joint, pelvic region and thigh [facility] Diagnosis Primary hypertension Unspecified essential hypertension Arterial ischemic stroke, MCA (middle cerebral artery), left, acute (HCC) Unspecified cerebral artery occlusion with cerebral infarction Dilatation of aorta ([facility]) Aortic ectasia, unspecified site Type 2 diabetes mellitus with hyperglycemia, with long-term current use of insulin (HCC) [facility] Cough [facility] Diagnosis Left wrist pain Pain in joint, forearm [facility] Diagnosis Type 2 diabetes mellitus without complication, without long-term current use of insulin (HCC) [facility]* Diagnosis Type 2 diabetes mellitus without complication, without long-term current use of insulin (HCC) [facility]* Diagnosis Type 2 diabetes mellitus without complication, without long-term current use of insulin (HCC) documented [facility]* Diagnosis Type 2 diabetes mellitus without complication, without long-term current use of insulin (HCC) documented [facility]* Diagnosis Chronic back pain, unspecified back location, unspecified back pain laterality documented in this encounter [facility] note* Diagnosis Urine frequency- Primary Urinary frequency Encounter for immunization Need for other specified prophylactic vaccination against single bacterial disease Screening for depression Encounter for screening examination for other mental health and behavioral disorders Chronic obstructive pulmonary disease, unspecified COPD type (HCC) Screening for colon cancer Special screening for malignant neoplasms, colon Type 2 diabetes mellitus with hyperglycemia, with long-term current use of insulin (HCC) Encounter for screening for lung cancer Screening [...] recurrence not specified documented in this encounter [facility] note* Diagnosis Chronic back pain, unspecified back location, unspecified back pain laterality- Primary Right hemiparesis (HCC) Hemiplegia, unspecified, affecting unspecified side documented [facility]* Diagnosis GERD without esophagitis Esophageal reflux Mild CAD Arterial ischemic stroke, MCA (middle cerebral artery), left, acute (HCC) Unspecified cerebral artery occlusion with cerebral infarction Dilatation of aorta (HCC) Aortic ectasia, unspecified site Bicuspid aortic valve Congenital insufficiency of aortic valve Chronic back pain, unspecified back location, unspecified back pain laterality documented [facility]* Diagnosis Cigarette smoker- Primary Tobacco use disorder [facility]* Diagnosis Paroxysmal atrial fibrillation (HCC) Atrial fibrillation [facility] Diagnosis Controlled type 2 diabetes mellitus with diabetic neuropathy, with long-term current use of insulin (HCC) documented [facility]* Diagnosis Type 2 diabetes mellitus with hyperglycemia, with long-term current use of insulin (HCC)- Primary documented in this encounter [facility] note* Diagnosis MANISH (obstructive sleep apnea)- Primary Obstructive sleep apnea (adult) (pediatric) Chronic back pain, unspecified back location, unspecified back pain laterality Chronic insomnia Insomnia, unspecified documented in this encounter [facility] note* Diagnosis Uncontrolled type 2 diabetes mellitus with hyperglycemia (HCC)- Primary Peripheral vascular disease Peripheral vascular disease, [...] ear, unspecified type documented in this encounter [facility] note* Diagnosis Type 2 diabetes mellitus without complication, without long-term current use of insulin (HCC) documented in this encounter [facility] note* Diagnosis Acute otitis externa, unspecified laterality, unspecified type- Primary documented in this encounter [facility] note* Diagnosis Primary hypertension Unspecified essential hypertension documented in this encounter [facility] note* Diagnosis Type 2 diabetes mellitus without complication, without long-term current use of insulin (HCC) documented in this encounter [facility] note* Diagnosis Multiple lung nodules- Primary Other nonspecific abnormal finding of lung field Encounter for screening for lung cancer Tobacco use current documented in this encounter [facility] note* Diagnosis Cigarette smoker Tobacco use disorder [facility] Diagnosis Chronic back pain, unspecified back location, unspecified back pain laterality GERD without esophagitis Esophageal reflux Mild CAD Arterial ischemic stroke, MCA (middle cerebral artery), left, acute (HCC) Unspecified cerebral artery occlusion with cerebral infarction Dilatation of aorta Aortic ectasia, unspecified site Bicuspid aortic valve (HCC) Congenital insufficiency of aortic valve Chronic insomnia Insomnia, unspecified documented in this encounter [facility] course Narrative No data available for this section [facility] Discharge instructions No data available for this section [facility] Reason for referral (narrative)* Outpatient Procedure (Routine) - Authorized Specialty Diagnoses / Procedures Referred By Ade t Referred To Contact [facility] Diagnoses Bicuspid aortic valve Nonrheumatic aortic valve stenosis Procedures ECHO ECHO TTHRC R-T 2D W/WOM-MODE COMPL SPEC&COLR D Kathy Colbert APRN.[employer] [address] [place] [address] [facility] [address] [place] [address] Referral ID Status Reason Start Date Expiration Date Visits Requested Visits Authorized [id number] Authorized Auto-Generat ed Referral 05/23/2022 05/23/2023 1 1 [facility] for referral (narrative)* Outpatient Procedure (Routine) - Authorized Specialty Diagnoses / Procedures Referred By Ade t Referred To Contact [facility] Diagnoses Diminished pulses in lower extremity Diabetic mononeuropathy associated with diabetes mellitus due to underlying condition (HCC) Procedures PVR ANK PRESS [facility] NON-INVAS PHYSIOLOGIC STD EXTREMITY ART 2 LEVEL Estelle Cardenas [address] [place] [address] [facility] [address] [place] [address] Referral ID Status Reason Start Date Expiration Date Visits Requested Visits Authorized [id number] Authorized Auto-Generat ed Referral 3 12/05/2023 1 1 * Diagnostic Procedure Only (Routine) - Closed Specialty Diagnoses / Procedures Referred By Ade t Referred To Contact XR IMAGING Diagnoses Venous insufficiency Procedures XR TIBIA FIBULA 2V AP/LAT RIGHT RADIOLOGIC EXAMINATION TIBIA & FIBULA 2 VIEWS Estelle Cardenas [address] [place] [address] [place] [id number] Referral ID Status Reason Start Date Expiration Date V isits Requested Visits Authorized [id number] Closed Auto-Generate d Referral 12/05/2022 01/04/2024 1 1 * Diagnostic Procedure Only (Routine) - Closed Specialty Diagnoses / Procedures Referred By Contac t Referred To Contact XR IMAGING Diagnoses Venous insufficiency Blister Procedures XR FOOT GENERAL 3V AP/LAT/OBL RIGHT RADEX FOOT COMPLETE MINIMUM 3 VIEWS Estelle Cardenas [address] [place] [address] [place] [address] Referral ID Status Reason Start Date Expiration Date V isits Requested Visits Authorized [id number] Closed Auto-Generate d Referral 12/05/2022 01/04/2024 1 1 [facility] for referral (narrative)* Outpatient Procedure (Routine) - Authorized Specialty Diagnoses / Procedures Referred By Contac t Referred To Contact [facility] Diagnoses Preoperative testing Encounter for preprocedural cardiovascular examination Severe aortic stenosis Procedures US CAROTID ARTERIES [facility] DUPLEX SCAN EXTRACRANIAL ART COMPL BI STUDY Leandro Foster APRN.SEASONER HAND [address] [place] [address] [facility] [address] [address] Referral ID Status Reason Start Date Expiration Date Visits Requested Visits Authorized [id number] Authorized Auto-Generat ed Referral 12/21/2022 12/21/2023 1 1 [facility] for referral (narrative)* Diagnostic Procedure Only (Urgent) - Closed Specialty Diagnoses / Procedures Referred By Contac t Referred To Contact XR IMAGING Diagnoses Wrist pain, acute, right Procedures XR WRIST INJURY 4V PA/LAT/OBL/SCAPH RIGHT RADEX WRIST COMPLETE MINIMUM 3 VIEWS Jim Jeffers APRN.[facility]ER HAND [address] [place] [address] [place] [address] Referral ID Status Reason Start Date Expiration Date V isits Requested Visits Authorized [id number] Closed Auto-Generate d Referral 05/29/2023 06/27/2024 1 1 * Diagnostic Procedure Only (Urgent) - Closed Specialty Diagnoses / Procedures Referred By Contac t Referred To Contact XR IMAGING Diagnoses Wrist pain, acute, right Procedures XR HAND GENERAL 3V PA/LAT/OBL RIGHT RADEX HAND MINIMUM 3 VIEWS Jim Jeffers APRN.[facility] [address] [place] [address] [place] [address] Referral ID Status Reason Start Date Expiration Date V isits Requested Visits Authorized [id number] Closed Auto-Generate d Referral 05/29/2023 06/27/2024 1 1 [facility] for referral (narrative)* Diagnostic Procedure Only (Urgent) - Closed Specialty Diagnoses / Procedures Referred By Contac t Referred To Contact XR IMAGING Diagnoses Wrist pain, acute, right Procedures XR WRIST INJURY 4V PA/LAT/OBL/SCAPH RIGHT RADEX WRIST COMPLETE MINIMUM 3 VIEWS Jim Jeffers APRN.[facility] HAND [address] [place] [address] [place] [address] Referral ID Status Reason Start Date Expiration Date V isits Requested Visits Authorized [id number] Closed Auto-Generate d Referral 05/29/2023 06/27/2024 1 1 * Diagnostic Procedure Only (Urgent) - Closed Specialty Diagnoses / Procedures Referred By Contac t Referred To Contact XR IMAGING Diagnoses Wrist pain, acute, right Procedures XR HAND GENERAL 3V PA/LAT/OBL RIGHT RADEX HAND MINIMUM 3 VIEWS Jim Jeffers APRN.SE[facility]ONER HAND [address] [place] [id number] [place] [address] Referral ID Status Reason Start Date Expiration Date V isits Requested Visits Authorized [id number] Closed Auto-Generate d Referral 05/29/2023 06/27/2024 1 1 [facility] for referral (narrative)* Diagnostic Procedure Only (Routine) - Closed Specialty Diagnoses / Procedures Referred By Contac t Referred To Contact XR IMAGING Diagnoses Small bowel obstruction (HCC) Procedures XR ABDOMEN 1V SUPINE RADIOLOGIC EXAM ABDOMEN 1 [address] Alyson Arthur MD [address] [place] [address] [place] [address] Referral ID Status Reason Start Date Expiration Date V isits Requested Visits Authorized [id number] Closed Auto-Generate d Referral 05/22/2023 06/20/2024 1 1 [facility] for referral (narrative)* Diagnostic Procedure Only (Urgent) - Closed Specialty Diagnoses / Procedures Referred By Contac t Referred To Contact XR IMAGING Diagnoses Left hip pain Procedures XR HIP GENERAL 3V PELV/AP/LAT LEFT RADEX HIP UNILATERAL WITH PELVIS 2-3 VIEWS Maric Merlos APRN.SEASONER HAND [address] [place] [address] [place] [address] Referral ID Status Reason Start Date Expiration Date V isits Requested Visits Authorized [id number] Closed Auto-Generate d Referral 07/04/2022 08/03/2023 1 1 [facility] for referral (narrative)No reason for referral information availableWC[facility] Phone: Reason for visit Narrative* Outpatient Procedure (Routine) - Closed Specialty Diagnoses / Procedures Referred By Contac t Referred To Contact [facility] Diagnoses Bicuspid aortic valve Nonrheumatic aortic valve stenosis Procedures ECHO ECHO TTHRC R-T 2D W/WOM-MODE COMPL SPEC&COLR D Kathy Colbert [employer] ACCOUNT EXECUTIVE.[employer] [address] [place] [address] [facility] [place] [address] [place] [address] Referral ID Status Reason Start Date Expiration Date V isits Requested Visits Authorized [id number] Closed Auto-Generate d Referral 05/23/2022 05/23/2023 1 1 [facility] for visit Narrative* Diagnostic Procedure Only (Urgent) - Closed Specialty Diagnoses / Procedures Referred By Contac t Referred To Contact XR IMAGING Diagnoses Wrist pain, acute, right Procedures XR WRIST INJURY 4V PA/LAT/OBL/SCAPH RIGHT RADEX WRIST COMPLETE MINIMUM 3 VIEWS Jim Jeffers, [employer] ACCOUNT EXECUTIVE.SE[employer]ER [employer] [address] [place] [address] [place] [address] Referral ID Status Reason Start Date Expiration Date V isits Requested Visits Authorized [id number] Closed Auto-Generate d Referral 05/29/2023 06/27/2024 1 1 [facility] for visit Narrative* Diagnostic Procedure Only (Routine) - Closed Specialty Diagnoses / Procedures Referred By Contac t Referred To Contact XR IMAGING Diagnoses Small bowel obstruction (HCC) Procedures XR ABDOMEN 1V SUPINE RADIOLOGIC EXAM ABDOMEN [address] Alyson Arthur MD [address] [place] [address] [place] [id number] Referral ID Status Reason Start Date Expiration Date V isits Requested Visits Authorized [id number] Closed Auto-Generate d Referral 05/22/2023 06/20/2024 1 1 [facility] for visit Narrative* Diagnostic Procedure Only (Urgent) - Closed Specialty Diagnoses / Procedures Referred By Contac t Referred To Contact XR IMAGING Diagnoses Left hip pain Procedures XR HIP GENERAL 3V PELV/AP/LAT LEFT RADEX HIP UNILATERAL WITH PELVIS 2-3 VIEWS Marci Merlos, [employer] ACCOUNT EXECUTIVE.[facility] [address] [place] [address] [place] [address] Referral ID Status Reason Start Date Expiration Date V isits Requested Visits Authorized [id number] Closed Auto-Generate d Referral 07/04/2022 08/03/2023 1 1 [facility] Concerns Infection Onset Date Last Indicated [...] No October 30, 2020 9:16pm Power of Information Assurance No October 9:16pm Advance Directive Response Recorded Date/ Time Advance Directives No November 20, 2013 7:14pm Living Will No October 18, 2 022 1:18pm Power of Information Assurance No October 18, 2021 1:18pm Advance Directive Response Recorded Date/ Time Advance Directives No November 20, 2013 6:14pm Living Will No October 18, 2 022 12:18pm Power of Information Assurance No October 18, 2021 12:18pm Advance Directive Response Recorded Date/ Time Advance Directives No November 20, 2013 7:14pm Living Will No September 23 3 2:06am Power of Information Assurance No September 23, 2 023 2:06am Advance Directive Response Recorded Date/ Time Advance Directives No November 20, 2013 7:14pm Living Will No October 09 3 2:45pm Power of Information Assurance No October 09, 2 023 2:45pm Advance Directive Response Recorded Date/ Time Advance Directives No November 20, 2013 7:14pm Living Will No October 09 3 10:10pm Power of Information Assurance No October 09, 2 023 10:10pm Advance Directive Response Recorded Date/ Time Advance Directives No November 20, 2013 7:14pm Living Will No June 22, 2023 2: 13pm Power of Information Assurance No June 22, 2023 2:13pm Advance Directive Response Recorded Date/ Time Advance Directives No November 20, 2013 7:14pm Living Will No June 22, 2023 8: 26pm Power of Information Assurance No June 22, 2023 8:26pm Advance Directive [...] Referral Specialty Diagnoses / Procedures Referred By Ade kong Referred To Contact Cardiology Diagnoses Nonrheumatic aortic valve stenosis Bicuspid aortic valve LVH (left ventricular hypertrophy) Primary hypertension Hyperlipidemia, unspecified hyperlipidemia type Procedures CONSULT TO CARDIOLOGY OFFICE/OUTPATIENT [facility] 60-74 MINUTES Scott Livingston PA-C [address] [place] [address] Referral ID Status Reason Start Date Expiration Date Visits Requested Visits Authorized [id number] Pending Review PCP Requested Referral 10/22/2021 10/22/2022 1 1 Specialty Diagnoses / Procedures Referred By Ade kong Referred To Contact Ophthalmology Diagnoses Type 2 diabetes mellitus with microalbuminuria, with long-term current use of insulin (HCC) Age-related cataract of both eyes, unspecified age-related cataract type Procedures CONSULT TO OPHTHALMOLOGY OFFICE/OUTPATIENT [facility] 60-74 MINUTES Scott Livingston PA-C [address] [place] [address] Referral ID Status Reason Start Date Expiration Date Visits Requested Visits Authorized [id number] Pending Review PCP Requested Referral 10/22/2021 10/22/2022 1 1 Specialty Diagnoses / Procedures Referred By Ade kong Referred To Contact [facility] Diagnoses Nonrheumatic aortic valve stenosis Bicuspid aortic valve LVH (left ventricular hypertrophy) Procedures ECHO ECHO TTHRC R-T 2D W/WOM-MODE COMPL SPEC&COLR D Scott Livingston PA-C [address] [place] [address] [facility] [place] [address] [place] [address] Referral ID Status Reason Start Date Expiration Date Visits Requested Visits Authorized [id number] Authorized Auto-Generat ed Referral 10/22/2021 10/22/2022 1 1 Specialty Diagnoses / Procedures Referred By Contac t Referred To Contact Ophthalmology Diagnoses Type 2 diabetes mellitus with microalbuminuria, with long-term current use of insulin (HCC) Controlled type 2 diabetes mellitus with diabetic neuropathy, with long-term current use of insulin (HCC) Procedures CONSULT TO OPHTHALMOLOGY OFFICE/OUTPATIENT [facility] 60-74 MINUTES Alyson Arthur MD [address] [place] [address] Referral ID Status Reason Start Date Expiration Date Visits Requested Visits Authorized [id number] Pending Review PCP Requested Referral 05/20/2022 05/20/2023 1 1 Specialty Diagnoses / Procedures Referred By Contac t Referred To Contact Cardiology Diagnoses Bicuspid aortic valve Procedures CONSULT TO CARDIOLOGY OFFICE/OUTPATIENT [facility] 60-74 MINUTES Alyson Arthur MD [address] [place] [address] Referral ID Status Reason Start Date Expiration Date Visits Requested Visits Authorized [id number] Pending Review PCP Requested Referral 05/20/2022 05/20/2023 1 1 Specialty Diagnoses / Procedures Referred By Contac t Referred To Contact CT IMAGING Diagnoses Encounter for screening for lung cancer Tobacco use current Procedures CT LUNG SCREEN WO IVCON COMPUTED TOMOGRAPHY THORAX LW DOSE LNG CA ADITI Sena- Amauri Jo, PRICILA.SE[facility]ONER HAND [address] [place] [address] Ct Imaging Referral ID Status Reason Start Date Expiration Date Visits Requested Visits Authorized [id number] Pending Review Auto-Generat ed Referral 07/16/2023 08/14/2023 1 1 Specialty Diagnoses / Procedures Referred By Contac t Referred To Contact Diagnoses Dyspnea, unspecified type Chronic obstructive pulmonary disease, unspecified COPD type (HCC) Alyson Arthur MD [address] [place] [address] Referral ID Status Reason Start Date Expiration Date V isits Requested Visits Authorized [id number] Pending Review 1 1 Specialty Diagnoses / Procedures Referred By Contac t Referred To Contact Diagnoses Lumbar radiculopathy Procedures CONSULT TO SPINE SURGERY Alyson Arthur MD [address] [place] [id number] Referral ID Status Reason Start Date Expiration Date Visits Requested Visits Authorized [id number] Ref Not Required PCP Requested Referral 09/28/2022 09/28/2023 1 1 Specialty Diagnoses / Procedures Referred By Contac t Referred To Contact Cardiothoracic Surgery Diagnoses Aortic valve stenosis, etiology of cardiac valve disease unspecified Bicuspid aortic valve Procedures CONSULT TO CARDIOTHORACIC SURGERY Kathy Colbert, [employer] ACCOUNT EXECUTIVE.[employer] HAND [address] [place] [address] Benjamin Pike MD [address] [place] [address] Referral ID Status Reason Start Date Expiration Date Visits Requested Visits Authorized [id number] Ref Not Required PCP Requested Referral 10/03/2022 10/03/2023 1 1 Specialty Diagnoses / Procedures Referred By Contac t Referred To Contact General Surgery Diagnoses Cutaneous abscess of right lower extremity Cellulitis of skin Procedures CONSULT TO GENERAL SURGERY OFFICE/OUTPATIENT [facility] 60-74 MINUTES Alyson Arthur MD [address] [place] [address] Referral ID Status Reason Start Date Expiration Date Visits Requested Visits Authorized [id number] Pending Review PCP Requested Referral 10/25/2022 10/25/2023 1 1 Specialty Diagnoses / Procedures Referred By Contac t Referred To Contact MR IMAGING Diagnoses Vision changes Headache, unspecified headache type Procedures MRI BRAIN WO IVCON MRI BRAIN BRAIN STEM W/O CONTRAST MATERIAL Alyson Arthur MD [address] [place] [address] [place] [address] Referral ID Status Reason Start Date Expiration Date Visits Requested Visits Authorized [id number] Pending Review Auto-Generat ed Referral 10/25/2022 11/24/2023 1 1 Specialty Diagnoses / Procedures Referred By Contac t Referred To Contact CT IMAGING Diagnoses Encounter for preprocedural cardiovascular examination Sleep apnea, unspecified type Bicuspid aortic valve Nonrheumatic aortic valve stenosis Preoperative testing Procedures CTA CHEST (GATED) WO/W IVCON CT ANGIOGRAPHY CHEST W/CONTRAST/NONCONTRAST Leandro Foster, [employer] ACCOUNT EXECUTIVE.SE[employer]ONER HAND [address] [place] [address] [place] [id number] Referral ID Status Reason Start Date Expiration Date Visits Requested Visits Authorized [id number] Pending Review Auto-Generat ed Referral 11/08/2022 12/08/2023 1 1 Specialty Diagnoses / Procedures Referred By Contac t Referred To Contact CT IMAGING Diagnoses Encounter for preprocedural cardiovascular examination Sleep apnea, unspecified type Bicuspid aortic valve Nonrheumatic aortic valve stenosis Preoperative testing Procedures CTA ABD/PEL W IVCON CT ANGIO ABD&PLVIS CNTRST MTRL W/WO CNTRST IMGES Leandro Foster, [employer] ACCOUNT EXECUTIVE.SEASONER HAND [address] [place] [address] [place] [id number] Referral ID Status Reason Start Date Expiration Date Visits Requested Visits Authorized [id number] Pending Review Auto-Generat ed Referral 11/08/2022 12/08/2023 1 1 Specialty Diagnoses / Procedures Referred By Contac t Referred To Contact [facility] Diagnoses Encounter for preprocedural cardiovascular examination Sleep apnea, unspecified type Bicuspid aortic valve Nonrheumatic aortic valve stenosis Preoperative testing Procedures LUNG VOLUMES Leandro Foster, [employer] ACCOUNT EXECUTIVE.SE[employer]ONER HAND [address] [place] [address] [facility] [place] [address] [place] [address] Referral ID Status Reason Start Date Expiration Date Visits Requested Visits Authorized [id number] Pending Review Auto-Generat ed Referral 11/08/2022 12/08/2023 1 1 Specialty Diagnoses / Procedures Referred By Contac t Referred To Contact [facility] Diagnoses Encounter for preprocedural cardiovascular examination Sleep apnea, unspecified type Bicuspid aortic valve Nonrheumatic aortic valve stenosis Preoperative testing Procedures LUNG DIFFUSION CAPACITY (DLCO) DIFFUSING CAPACITY Leandro Foster APRN.SEASONER HAND [address] [place] [address] [facility] [place] [address] [place] [address] Referral ID Status Reason Start Date Expiration Date Visits Requested Visits Authorized [id number] Pending Review Auto-Generat ed Referral 11/08/2022 12/08/2023 1 1 Specialty Diagnoses / Procedures Referred By Contac t Referred To Contact [facility] Diagnoses Encounter for preprocedural cardiovascular examination Sleep apnea, unspecified type Bicuspid aortic valve Nonrheumatic aortic valve stenosis Preoperative testing Procedures SPIROMETRY BASELINE ONLY SPMTRY W/VC EXPIRATORY JUAN W/WO MXML VOL VNTJ Leandro Foster APRN.SEASONER HAND [address] [place] [address] [facility] [place] [address] [place] [address] Referral ID Status Reason Start Date Expiration Date Visits Requested Visits Authorized [id number] Pending Review Auto-Generat ed Referral 11/08/2022 12/08/2023 1 1 Specialty Diagnoses / Procedures Referred By Contac t Referred To Contact Alyson Arthur MD [address] [place], [place] [id number] Referral ID Status Reason Start Date Expiration Date V isits Requested Visits Authorized [id number] Pending Review 1 1 Specialty Diagnoses / Procedures Referred By Contac t Referred To Contact Podiatry Diagnoses Blister (nonthermal), right foot, initial encounter Controlled type 2 diabetes mellitus with diabetic neuropathy, with long-term current use of insulin (HCC) Procedures CONSULT TO PODIATRY OFFICE/OUTPATIENT [facility] MDM 60-74 MINUTES Pascual Bacon MD [address] [place], [place] [id number] Referral ID Status Reason Start Date Expiration Date Visits Requested Visits Authorized [id number] Pending Review PCP Requested Referral 11/30/2023 1 1 Referral ID Status Reason Start Date Expiration Date Visits Re quested Visits Authorized [id number] Closed 1 1 Specialty Diagnoses / Procedures Referred By Contac t Referred To Contact CT IMAGING Diagnoses Encounter for screening for lung cancer Tobacco use current Procedures CT LUNG SCREEN WO IVCON COMPUTED TOMOGRAPHY THORAX LW DOSE LNG CA SCR Nathen- Deysi Amauri, [employer] ACCOUNT EXECUTIVE.SEASONER HAND [address] [place] [address] Ct Imaging [place] [address] Referral ID Status Reason Start Date Expiration Date V isits Requested Visits Authorized [id number] Closed Auto-Generate d Referral 06/28/2022 07/28/2023 1 1 Referral ID Status Reason Start Date Expiration Date Visits Re quested Visits Authorized [id number] Closed 1 1 Specialty Diagnoses / Procedures Referred By Contac t Referred To Contact Procedures CARDIOVASCULAR MEDICINE OP FOLLOW UP APPT ORDER Kiel Barnes MD [address] [place] [id number] Referral ID Status Reason Start Date Expiration Date Visits Requested Visits Authorized [id number] Ref Not Required PCP Requested Referral 03/16/2023 03/15/2024 1 1 Specialty Diagnoses / Procedures Referred By Contac t Referred To Contact Neurology Diagnoses Right hemiparesis (HCC) Slurred speech Mild CAD Dysarthria Arterial ischemic stroke, MCA (middle cerebral artery), left, acute (HCC) Procedures CONSULT TO NEUROLOGY OFFICE/OUTPATIENT [facility] 60 MINUTES Alyson Arthur MD [address] [place] [address] Referral ID Status Reason Start Date Expiration Date Visits Requested Visits Authorized [id number] Authorized PCP Requested Referral 05/22/2023 05/21/2024 1 1 Specialty Diagnoses / Procedures Referred By Contac t Referred To Contact XR IMAGING Diagnoses Small bowel obstruction (HCC) Procedures XR ABDOMEN 1V SUPINE RADIOLOGIC EXAM ABDOMEN 1 [address] Alyson Arthur MD [address] [place] [address] Xr Imaging [id number] Referral ID Status Reason Start Date Expiration Date V isits Requested Visits Authorized [id number] Closed Auto-Generate d Referral 05/22/2023 06/20/2024 1 1 Specialty Diagnoses / Procedures Referred By Contac t Referred To Contact Diagnoses Chronic insomnia Alyson Arthur MD [address] [place] [address] Referral ID Status Reason Start Date Expiration Date V isits Requested Visits Authorized [id number] Pending Review 1 1 Referral ID Status Reason Start Date Expiration Date Visits Re quested Visits Authorized [id number] Denied 1 1 Specialty Diagnoses / Procedures Referred By Contac t Referred To Contact [facility] [place] Procedures CARDIOVASCULAR MEDICINE OP FOLLOW UP APPT ORDER Kiel Barnes MD [address] [place] [address] [facility] [address] [address] Referral ID Status Reason Start Date Expiration Date Visits Requested Visits Authorized [id number] Ref Not Required PCP Requested Referral 06/06/2023 06/05/2024 1 1 Specialty Diagnoses / Procedures Referred By Contac t Referred To Contact CT IMAGING Diagnoses 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) Procedures CTA CHEST (GATED) W IVCON CT ANGIOGRAPHY CHEST W/CONTRAST/NONCONTRAST Elma Hester, PRICILA.SEASONER HAND [address] [place] [address] Ct Imaging [place] [address] Referral ID Status Reason Start Date Expiration Date V isits Requested Visits Authorized [id number] Closed Auto-Generate d Referral 03/28/2023 04/26/2024 1 1 Specialty Diagnoses / Procedures Referred By Contac t Referred To Contact Gastroenterology Diagnoses SBO (small bowel obstruction) (HCC) Procedures CONSULT TO GASTROENTEROLOGY OFFICE/OUTPATIENT [facility] 60 MINUTES Angela Schmid, [employer] ACCOUNT EXECUTIVE.SEASONER HAND [address] [place] [address] Referral ID Status Reason Start Date Expiration Date Visits Requested Visits Authorized [id number] Authorized PCP Requested Referral 07/05/2023 07/04/2024 1 [...] or prosecute any alcohol or drug abuse patient.[facility] the event this information is protected by the Federal Confidentiality of Alcohol and Drug Abuse Patient Records regulations: The Federal rules restrict any use of the information to criminally investigate or prosecute any alcohol or drug abuse patient.[facility] HospitalIn the event this information is protected by the Federal Confidentiality of Alcohol and Drug Abuse Patient Records regulations: The Federal rules restrict any use of the information to criminally investigate or prosecute any alcohol or drug abuse patient.[facility] the event this information is protected by the Federal Confidentiality of Alcohol and Drug Abuse Patient Records regulations: The Federal rules restrict any use of the information to criminally investigate or prosecute any alcohol or drug abuse patient.[facility] HospitalIn the event this information is protected by the Federal Confidentiality of Alcohol and Drug Abuse Patient Records regulations: The Federal rules restrict any use of the information to criminally investigate or prosecute any alcohol or drug abuse patient.[facility] HospitalIn the event this information is protected by the Federal Confidentiality of Alcohol and Drug Abuse Patient Records regulations: The Federal rules restrict any use of the information to criminally investigate or prosecute any alcohol or drug abuse patient.[facility] HospitalIn the event this information is protected by the Federal Confidentiality of Alcohol and Drug Abuse Patient Records regulations: The Federal rules restrict any use of the information to criminally investigate or prosecute any alcohol or drug abuse patient.[facility] HospitalIn the event this information is protected by the Federal Confidentiality of Alcohol and Drug Abuse Patient Records regulations: The Federal rules restrict any use of the information to criminally investigate or prosecute any alcohol or drug abuse patient.[facility] HospitalIn the event this information is protected by the Federal Confidentiality of Alcohol and Drug Abuse Patient Records regulations: The Federal rules restrict any use of the information to criminally investigate or prosecute any alcohol or drug abuse patient.[facility]In the event this information is protected by the Federal Confidentiality of Alcohol and Drug Abuse Patient Records regulations: The Federal rules restrict any use of the information to criminally investigate or prosecute any alcohol or drug abuse patient.[facility] HospitalIn the event this information is protected by the Federal Confidentiality of Alcohol and Drug Abuse Patient Records regulations: The Federal rules restrict any use of the information to criminally investigate or prosecute any alcohol or drug abuse patient.[facility] HospitalIn the event this information is protected by the Federal Confidentiality of Alcohol and Drug Abuse Patient Records regulations: The Federal rules restrict any use of the information to criminally investigate or prosecute any alcohol or drug abuse patient.[facility] HospitalIn the event this information is protected by the Federal Confidentiality of Alcohol and Drug Abuse Patient Records regulations: The Federal rules restrict any use of the information to criminally investigate or prosecute any alcohol or drug abuse patient.[facility] HospitalIn the event this information is protected by the Federal Confidentiality of Alcohol and Drug Abuse Patient Records regulations: The Federal rules restrict any use of the information to criminally investigate or prosecute any alcohol or drug abuse patient.[facility] HospitalIn the event this information is protected by the Federal Confidentiality of Alcohol and Drug Abuse Patient Records regulations: The Federal rules restrict any use of the information to criminally investigate or prosecute any alcohol or drug abuse patient.[facility] HospitalIn the event this information is protected by the Federal Confidentiality of Alcohol and Drug Abuse Patient Records regulations: The Federal rules restrict any use of the information to criminally investigate or prosecute any alcohol or drug abuse patient.[facility] HospitalIn the event this information is protected by the Federal Confidentiality of Alcohol and Drug Abuse Patient Records regulations: The Federal rules restrict any use of the information to criminally investigate or prosecute any alcohol or drug abuse patient.[facility] HospitalIn the event this information is protected by the Federal Confidentiality of Alcohol and Drug Abuse Patient Records regulations: The Federal rules restrict any use of the information to criminally investigate or prosecute any alcohol or drug abuse patient.[facility] HospitalIn the event this information is protected by the Federal Confidentiality of Alcohol and Drug Abuse Patient Records regulations: The Federal rules restrict any use of the information to criminally investigate or prosecute any alcohol or drug abuse patient.[facility] HospitalIn the event this information is protected by the Federal Confidentiality of Alcohol and Drug Abuse Patient Records regulations: The Federal rules restrict any use of the information to criminally investigate or prosecute any alcohol or drug abuse patient.[facility] HospitalIn the event this information is protected by the Federal Confidentiality of Alcohol and Drug Abuse Patient Records regulations: The Federal rules restrict any use of the information to criminally investigate or prosecute any alcohol or drug abuse patient.[facility] HospitalIn the event this information is protected by the Federal Confidentiality of Alcohol and Drug Abuse Patient Records regulations: The Federal rules restrict any use of the information to criminally investigate or prosecute any alcohol or drug abuse patient.[facility] HospitalIn the event this information is protected by the Federal Confidentiality of Alcohol and Drug Abuse Patient Records regulations: The Federal rules restrict any use of the information to criminally investigate or prosecute any alcohol or drug abuse patient.[facility] HospitalIn the event this information is protected by the Federal Confidentiality of Alcohol and Drug Abuse Patient Records regulations: The Federal rules restrict any use of the information to criminally investigate or prosecute any alcohol or drug abuse patient.[facility] HospitalIn the event this information is protected by the Federal Confidentiality of Alcohol and Drug Abuse Patient Records regulations: The Federal rules restrict any use of the information to criminally investigate or prosecute any alcohol or drug abuse patient.[facility] HospitalIn the event this information is protected by the Federal Confidentiality of Alcohol and Drug Abuse Patient Records regulations: The Federal rules restrict any use of the information to criminally investigate or prosecute any alcohol or drug abuse patient.[facility] HospitalIn the event this information is protected by the Federal Confidentiality of Alcohol and Drug Abuse Patient Records regulations: The Federal rules restrict any use of the information to criminally investigate or prosecute any alcohol or drug abuse patient.[facility] HospitalIn the event this information is protected by the Federal Confidentiality of Alcohol and Drug Abuse Patient Records regulations: The Federal rules restrict any use of the information to criminally investigate or prosecute any alcohol or drug abuse patient.[facility] HospitalIn the event this information is protected by the Federal Confidentiality of Alcohol and Drug Abuse Patient Records regulations: The Federal rules restrict any use of the information to criminally investigate or prosecute any alcohol or drug abuse patient.[facility] HospitalIn the event this information is protected by the Federal Confidentiality of Alcohol and Drug Abuse Patient Records regulations: The Federal rules restrict any use of the information to criminally investigate or prosecute any alcohol or drug abuse patient.[facility] HospitalIn the event this information is protected by the Federal Confidentiality of Alcohol and Drug Abuse Patient Records regulations: The Federal rules restrict any use of the information to criminally investigate or prosecute any alcohol or drug abuse patient.[facility] HospitalIn the event this information is protected by the Federal Confidentiality of Alcohol and Drug Abuse Patient Records regulations: The Federal rules restrict any use of the information to criminally investigate or prosecute any alcohol or drug abuse patient.[facility] HospitalIn the event this information is protected by the Federal Confidentiality of Alcohol and Drug Abuse Patient Records regulations: The Federal rules restrict any use of the information to criminally investigate or prosecute any alcohol or drug abuse patient.[facility] HospitalIn the event this information is protected by the Federal Confidentiality of Alcohol and Drug Abuse Patient Records regulations: The Federal rules restrict any use of the information to criminally investigate or prosecute any alcohol or drug abuse patient.[facility] HospitalIn the event this information is protected by the Federal Confidentiality of Alcohol and Drug Abuse Patient Records regulations: The Federal rules restrict any use of the information to criminally investigate or prosecute any alcohol or drug abuse patient.[facility] HospitalIn the event this information is protected by the Federal Confidentiality of Alcohol and Drug Abuse Patient Records regulations: The Federal rules restrict any use of the information to criminally investigate or prosecute any alcohol or drug abuse patient.[facility] HospitalIn the event this information is protected by the Federal Confidentiality of Alcohol and Drug Abuse Patient Records regulations: The Federal rules restrict any use of the information to criminally investigate or prosecute any alcohol or drug abuse patient.[facility] HospitalIn the event this information is protected by the Federal Confidentiality of Alcohol and Drug Abuse Patient Records regulations: The Federal rules restrict any use of the information to criminally investigate or prosecute any alcohol or drug abuse patient.[facility] HospitalIn the event this information is protected by the Federal Confidentiality of Alcohol and Drug Abuse Patient Records regulations: The Federal rules restrict any use of the information to criminally investigate or prosecute any alcohol or drug abuse patient.[facility] HospitalIn the event this information is protected by the Federal Confidentiality of Alcohol and Drug Abuse Patient Records regulations: The Federal rules restrict any use of the information to criminally investigate or prosecute any alcohol or drug abuse patient.[facility] HospitalIn the event this information is protected by the Federal Confidentiality of Alcohol and Drug Abuse Patient Records regulations: The Federal rules restrict any use of the information to criminally investigate or prosecute any alcohol or drug abuse patient.[facility] the event this information is protected by the Federal Confidentiality of Alcohol and Drug Abuse Patient Records regulations: The Federal rules restrict any use of the information to criminally investigate or prosecute any alcohol or drug abuse patient.[facility] HospitalIn the event this information is protected by the Federal Confidentiality of Alcohol and Drug Abuse Patient Records regulations: The Federal rules restrict any use of the information to criminally investigate or prosecute any alcohol or drug abuse patient.[facility] HospitalIn the event this information is protected by the Federal Confidentiality of Alcohol and Drug Abuse Patient Records regulations: The Federal rules restrict any use of the information to criminally investigate or prosecute any alcohol or drug abuse patient.[facility] HospitalIn the event this information is protected by the Federal Confidentiality of Alcohol and Drug Abuse Patient Records regulations: The Federal rules restrict any use of the information to criminally investigate or prosecute any alcohol or drug abuse patient.[facility] HospitalIn the event this information is protected by the Federal Confidentiality of Alcohol and Drug Abuse Patient Records regulations: The Federal rules restrict any use of the information to criminally investigate or prosecute any alcohol or drug abuse patient.[facility] HospitalIn the event this information is protected by the Federal Confidentiality of Alcohol and Drug Abuse Patient Records regulations: The Federal rules restrict any use of the information to criminally investigate or prosecute any alcohol or drug abuse patient.[facility] HospitalIn the event this information is protected by the Federal Confidentiality of Alcohol and Drug Abuse Patient Records regulations: The Federal rules restrict any use of the information to criminally investigate or prosecute any alcohol or drug abuse patient.[facility] HospitalIn the event this information is protected by the Federal Confidentiality of Alcohol and Drug Abuse Patient Records regulations: The Federal rules restrict any use of the information to criminally investigate or prosecute any alcohol or drug abuse patient.[facility] HospitalIn the event this information is protected by the Federal Confidentiality of Alcohol and Drug Abuse Patient Records regulations: The Federal rules restrict any use of the information to criminally investigate or prosecute any alcohol or drug abuse patient.[facility] HospitalIn the event this information is protected by the Federal Confidentiality of Alcohol and Drug Abuse Patient Records regulations: The Federal rules restrict any use of the information to criminally investigate or prosecute any alcohol or drug abuse patient.[facility] HospitalIn the event this information is protected by the Federal Confidentiality of Alcohol and Drug Abuse Patient Records regulations: The Federal rules restrict any use of the information to criminally investigate or prosecute any alcohol or drug abuse patient.[facility] HospitalIn the event this information is protected by the Federal Confidentiality of Alcohol and Drug Abuse Patient Records regulations: The Federal rules restrict any use of the information to criminally investigate or prosecute any alcohol or drug abuse patient.[facility] HospitalIn the event this information is protected by the Federal Confidentiality of Alcohol and Drug Abuse Patient Records regulations: The Federal rules restrict any use of the information to criminally investigate or prosecute any alcohol or drug abuse patient.[facility] HospitalIn the event this information is protected by the Federal Confidentiality of Alcohol and Drug Abuse Patient Records regulations: The Federal rules restrict any use of the information to criminally investigate or prosecute any alcohol or drug abuse patient.[facility] HospitalIn the event this information is protected by the Federal Confidentiality of Alcohol and Drug Abuse Patient Records regulations: The Federal rules restrict any use of the information to criminally investigate or prosecute any alcohol or drug abuse patient.[facility] HospitalIn the event this information is protected by the Federal Confidentiality of Alcohol and Drug Abuse Patient Records regulations: The Federal rules restrict any use of the information to criminally investigate or prosecute any alcohol or drug abuse patient.[facility] HospitalIn the event this information is protected by the Federal Confidentiality of Alcohol and Drug Abuse Patient Records regulations: The Federal rules restrict any use of the information to criminally investigate or prosecute any alcohol or drug abuse patient.[facility] HospitalIn the event this information is protected by the Federal Confidentiality of Alcohol and Drug Abuse Patient Records regulations: The Federal rules restrict any use of the information to criminally investigate or prosecute any alcohol or drug abuse patient.[facility] HospitalIn the event this information is protected by the Federal Confidentiality of Alcohol and Drug Abuse Patient Records regulations: The Federal rules restrict any use of the information to criminally investigate or prosecute any alcohol or drug abuse patient.[facility] HospitalIn the event this information is protected by the Federal Confidentiality of Alcohol and Drug Abuse Patient Records regulations: The Federal rules restrict any use of the information to criminally investigate or prosecute any alcohol or drug abuse patient.[facility] HospitalIn the event this information is protected by the Federal Confidentiality of Alcohol and Drug Abuse Patient Records regulations: The Federal rules restrict any use of the information to criminally investigate or prosecute any alcohol or drug abuse patient.[facility] HospitalIn the event this information is protected by the Federal Confidentiality of Alcohol and Drug Abuse Patient Records regulations: The Federal rules restrict any use of the information to criminally investigate or prosecute any alcohol or drug abuse patient.[facility] HospitalIn the event this information is protected by the Federal Confidentiality of Alcohol and Drug Abuse Patient Records regulations: The Federal rules restrict any use of the information to criminally investigate or prosecute any alcohol or drug abuse patient.[facility] HospitalIn the event this information is protected by the Federal Confidentiality of Alcohol and Drug Abuse Patient Records regulations: The Federal rules restrict any use of the information to criminally investigate or prosecute any alcohol or drug abuse patient.[facility] HospitalIn the event this information is protected by the Federal Confidentiality of Alcohol and Drug Abuse Patient Records regulations: The Federal rules restrict any use of the information to criminally investigate or prosecute any alcohol or drug abuse patient.[facility] HospitalIn the event this information is protected by the Federal Confidentiality of Alcohol and Drug Abuse Patient Records regulations: The Federal rules restrict any use of the information to criminally investigate or prosecute any alcohol or drug abuse patient.[facility] HospitalIn the event this information is protected by the Federal Confidentiality of Alcohol and Drug Abuse Patient Records regulations: The Federal rules restrict any use of the information to criminally investigate or prosecute any alcohol or drug abuse patient.[facility] HospitalIn the event this information is protected by the Federal Confidentiality of Alcohol and Drug Abuse Patient Records regulations: The Federal rules restrict any use of the information to criminally investigate or prosecute any alcohol or drug abuse patient.[facility] HospitalIn the event this information is protected by the Federal Confidentiality of Alcohol and Drug Abuse Patient Records regulations: The Federal rules restrict any use of the information to criminally investigate or prosecute any alcohol or drug abuse patient.[facility] HospitalIn the event this information is protected by the Federal Confidentiality of Alcohol and Drug Abuse Patient Records regulations: The Federal rules restrict any use of the information to criminally investigate or prosecute any alcohol or drug abuse patient.[facility] HospitalIn the event this information is protected by the Federal Confidentiality of Alcohol and Drug Abuse Patient Records regulations: The Federal rules restrict any use of the information to criminally investigate or prosecute any alcohol or drug abuse patient.[facility] HospitalIn the event this information is protected by the Federal Confidentiality of Alcohol and Drug Abuse Patient Records regulations: The Federal rules restrict any use of the information to criminally investigate or prosecute any alcohol or drug abuse patient.[facility] HospitalIn the event this information is protected by the Federal Confidentiality of Alcohol and Drug Abuse Patient Records regulations: The Federal rules restrict any use of the information to criminally investigate or prosecute any alcohol or drug abuse patient.[facility] HospitalIn the event this information is protected by the Federal Confidentiality of Alcohol and Drug Abuse Patient Records regulations: The Federal rules restrict any use of the information to criminally investigate or prosecute any alcohol or drug abuse patient.[facility] HospitalIn the event this information is protected by the Federal Confidentiality of Alcohol and Drug Abuse Patient Records regulations: The Federal rules restrict any use of the information to criminally investigate or prosecute any alcohol or drug abuse patient.[facility] HospitalIn the event this information is protected by the Federal Confidentiality of Alcohol and Drug Abuse Patient Records regulations: The Federal rules restrict any use of the information to criminally investigate or prosecute any alcohol or drug abuse patient.[facility] HospitalIn the event this information is protected by the Federal Confidentiality of Alcohol and Drug Abuse Patient Records regulations: The Federal rules restrict any use of the information to criminally investigate or prosecute any alcohol or drug abuse patient.[facility] HospitalIn the event this information is protected by the Federal Confidentiality of Alcohol and Drug Abuse Patient Records regulations: The Federal rules restrict any use of the information to criminally investigate or prosecute any alcohol or drug abuse patient.[facility] HospitalIn the event this information is protected by the Federal Confidentiality of Alcohol and Drug Abuse Patient Records regulations: The Federal rules restrict any use of the information to criminally investigate or prosecute any alcohol or drug abuse patient.[facility] HospitalIn the event this information is protected by the Federal Confidentiality of Alcohol and Drug Abuse Patient Records regulations: The Federal rules restrict any use of the information to criminally investigate or prosecute any alcohol or drug abuse patient.[facility] HospitalIn the event this information is protected by the Federal Confidentiality of Alcohol and Drug Abuse Patient Records regulations: The Federal rules restrict any use of the information to criminally investigate or prosecute any alcohol or drug abuse patient.[facility] HospitalIn the event this information is protected by the Federal Confidentiality of Alcohol and Drug Abuse Patient Records regulations: The Federal rules restrict any use of the information to criminally investigate or prosecute any alcohol or drug abuse patient.[facility] HospitalIn the event this information is protected by the Federal Confidentiality of Alcohol and Drug Abuse Patient Records regulations: The Federal rules restrict any use of the information to criminally investigate or prosecute any alcohol or drug abuse patient.[facility] HospitalIn the event this information is protected by the Federal Confidentiality of Alcohol and Drug Abuse Patient Records regulations: The Federal rules restrict any use of the information to criminally investigate or prosecute any alcohol or drug abuse patient.[facility] HospitalIn the event this information is protected by the Federal Confidentiality of Alcohol and Drug Abuse Patient Records regulations: The Federal rules restrict any use of the information to criminally investigate or prosecute any alcohol or drug abuse patient.[facility] HospitalIn the event this information is protected by the Federal Confidentiality of Alcohol and Drug Abuse Patient Records regulations: The Federal rules restrict any use of the information to criminally investigate or prosecute any alcohol or drug abuse patient.[facility] HospitalIn the event this information is protected by the Federal Confidentiality of Alcohol and Drug Abuse Patient Records regulations: The Federal rules restrict any use of the information to criminally investigate or prosecute any alcohol or drug abuse patient.[facility] HospitalIn the event this information is protected by the Federal Confidentiality of Alcohol and Drug Abuse Patient Records regulations: The Federal rules restrict any use of the information to criminally investigate or prosecute any alcohol or drug abuse patient.[facility] HospitalIn the event this information is protected by the Federal Confidentiality of Alcohol and Drug Abuse Patient Records regulations: The Federal rules restrict any use of the information to criminally investigate or prosecute any alcohol or drug abuse patient.[facility] HospitalIn the event this information is protected by the Federal Confidentiality of Alcohol and Drug Abuse Patient Records regulations: The Federal rules restrict any use of the information to criminally investigate or prosecute any alcohol or drug abuse patient.[facility] the event this information is protected by the Federal Confidentiality of Alcohol and Drug Abuse Patient Records regulations: The Federal rules restrict any use of the information to criminally investigate or prosecute any alcohol or drug abuse patient.[facility] HospitalIn the event this information is protected by the Federal Confidentiality of Alcohol and Drug Abuse Patient Records regulations: The Federal rules restrict any use of the information to criminally investigate or prosecute any alcohol or drug abuse patient.[facility] HospitalIn the event this information is protected by the Federal Confidentiality of Alcohol and Drug Abuse Patient Records regulations: The Federal rules restrict any use of the information to criminally investigate or prosecute any alcohol or drug abuse patient.[facility] HospitalIn the event this information is protected by the Federal Confidentiality of Alcohol and Drug Abuse Patient Records regulations: The Federal rules restrict any use of the information to criminally investigate or prosecute any alcohol or drug abuse patient.[facility] HospitalIn the event this information is protected by the Federal Confidentiality of Alcohol and Drug Abuse Patient Records regulations: The Federal rules restrict any use of the information to criminally investigate or prosecute any alcohol or drug abuse patient.[facility] HospitalIn the event this information is protected by the Federal Confidentiality of Alcohol and Drug Abuse Patient Records regulations: The Federal rules restrict any use of the information to criminally investigate or prosecute any alcohol or drug abuse patient.[facility] HospitalIn the event this information is protected by the Federal Confidentiality of Alcohol and Drug Abuse Patient Records regulations: The Federal rules restrict any use of the information to criminally investigate or prosecute any alcohol or drug abuse patient.[facility] HospitalIn the event this information is protected by the Federal Confidentiality of Alcohol and Drug Abuse Patient Records regulations: The Federal rules restrict any use of the information to criminally investigate or prosecute any alcohol or drug abuse patient.[facility] HospitalIn the event this information is protected by the Federal Confidentiality of Alcohol and Drug Abuse Patient Records regulations: The Federal rules restrict any use of the information to criminally investigate or prosecute any alcohol or drug abuse patient.[facility] HospitalIn the event this information is protected by the Federal Confidentiality of Alcohol and Drug Abuse Patient Records regulations: The Federal rules restrict any use of the information to criminally investigate or prosecute any alcohol or drug abuse patient.[facility] HospitalIn the event this information is protected by the Federal Confidentiality of Alcohol and Drug Abuse Patient Records regulations: The Federal rules restrict any use of the information to criminally investigate or prosecute any alcohol or drug abuse patient.[facility] HospitalIn the event this information is protected by the Federal Confidentiality of Alcohol and Drug Abuse Patient Records regulations: The Federal rules restrict any use of the information to criminally investigate or prosecute any alcohol or drug abuse patient.[facility] HospitalIn the event this information is protected by the Federal Confidentiality of Alcohol and Drug Abuse Patient Records regulations: The Federal rules restrict any use of the information to criminally investigate or prosecute any alcohol or drug abuse patient.[facility] HospitalIn the event this information is protected by the Federal Confidentiality of Alcohol and Drug Abuse Patient Records regulations: The Federal rules restrict any use of the information to criminally investigate or prosecute any alcohol or drug abuse patient.[facility] HospitalIn the event this information is protected by the Federal Confidentiality of Alcohol and Drug Abuse Patient Records regulations: The Federal rules restrict any use of the information to criminally investigate or prosecute any alcohol or drug abuse patient.[facility] HospitalIn the event this information is protected by the Federal Confidentiality of Alcohol and Drug Abuse Patient Records regulations: The Federal rules restrict any use of the information to criminally investigate or prosecute any alcohol or drug abuse patient.[facility] HospitalIn the event this information is protected by the Federal Confidentiality of Alcohol and Drug Abuse Patient Records regulations: The Federal rules restrict any use of the information to criminally investigate or prosecute any alcohol or drug abuse patient.[facility] HospitalIn the event this information is protected by the Federal Confidentiality of Alcohol and Drug Abuse Patient Records regulations: The Federal rules restrict any use of the information to criminally investigate or prosecute any alcohol or drug abuse patient.[facility] HospitalIn the event this information is protected by the Federal Confidentiality of Alcohol and Drug Abuse Patient Records regulations: The Federal rules restrict any use of the information to criminally investigate or prosecute any alcohol or drug abuse patient.[facility] HospitalIn the event this information is protected by the Federal Confidentiality of Alcohol and Drug Abuse Patient Records regulations: The Federal rules restrict any use of the information to criminally investigate or prosecute any alcohol or drug abuse patient.[facility] HospitalIn the event this information is protected by the Federal Confidentiality of Alcohol and Drug Abuse Patient Records regulations: The Federal rules restrict any use of the information to criminally investigate or prosecute any alcohol or drug abuse patient.[facility] HospitalIn the event this information is protected by the Federal Confidentiality of Alcohol and Drug Abuse Patient Records regulations: The Federal rules restrict any use of the information to criminally investigate or prosecute any alcohol or drug abuse patient.[facility] HospitalIn the event this information is protected by the Federal Confidentiality of Alcohol and Drug Abuse Patient Records regulations: The Federal rules restrict any use of the information to criminally investigate or prosecute any alcohol or drug abuse patient.[facility] HospitalIn the event this information is protected by the Federal Confidentiality of Alcohol and Drug Abuse Patient Records regulations: The Federal rules restrict any use of the information to criminally investigate or prosecute any alcohol or drug abuse patient.[facility] HospitalIn the event this information is protected by the Federal Confidentiality of Alcohol and Drug Abuse Patient Records regulations: The Federal rules restrict any use of the information to criminally investigate or prosecute any alcohol or drug abuse patient.[facility] HospitalIn the event this information is protected by the Federal Confidentiality of Alcohol and Drug Abuse Patient Records regulations: The Federal rules restrict any use of the information to criminally investigate or prosecute any alcohol or drug abuse patient.[facility] HospitalIn the event this information is protected by the Federal Confidentiality of Alcohol and Drug Abuse Patient Records regulations: The Federal rules restrict any use of the information to criminally investigate or prosecute any alcohol or drug abuse patient.[facility] HospitalIn the event this information is protected by the Federal Confidentiality of Alcohol and Drug Abuse Patient Records regulations: The Federal rules restrict any use of the information to criminally investigate or prosecute any alcohol or drug abuse patient.[facility] HospitalIn the event this information is protected by the Federal Confidentiality of Alcohol and Drug Abuse Patient Records regulations: The Federal rules restrict any use of the information to criminally investigate or prosecute any alcohol or drug abuse patient.[facility] HospitalIn the event this information is protected by the Federal Confidentiality of Alcohol and Drug Abuse Patient Records regulations: The Federal rules restrict any use of the information to criminally investigate or prosecute any alcohol or drug abuse patient.[facility] HospitalIn the event this information is protected by the Federal Confidentiality of Alcohol and Drug Abuse Patient Records regulations: The Federal rules restrict any use of the information to criminally investigate or prosecute any alcohol or drug abuse patient.[facility] HospitalIn the event this information is protected by the Federal Confidentiality of Alcohol and Drug Abuse Patient Records regulations: The Federal rules restrict any use of the information to criminally investigate or prosecute any alcohol or drug abuse patient.[facility] HospitalIn the event this information is protected by the Federal Confidentiality of Alcohol and Drug Abuse Patient Records regulations: The Federal rules restrict any use of the information to criminally investigate or prosecute any alcohol or drug abuse patient.[facility] HospitalIn the event this information is protected by the Federal Confidentiality of Alcohol and Drug Abuse Patient Records regulations: The Federal rules restrict any use of the information to criminally investigate or prosecute any alcohol or drug abuse patient.[facility] HospitalIn the event this information is protected by the Federal Confidentiality of Alcohol and Drug Abuse Patient Records regulations: The Federal rules restrict any use of the information to criminally investigate or prosecute any alcohol or drug abuse patient.[facility] HospitalIn the event this information is protected by the Federal Confidentiality of Alcohol and Drug Abuse Patient Records regulations: The Federal rules restrict any use of the information to criminally investigate or prosecute any alcohol or drug abuse patient.[facility] HospitalIn the event this information is protected by the Federal Confidentiality of Alcohol and Drug Abuse Patient Records regulations: The Federal rules restrict any use of the information to criminally investigate or prosecute any alcohol or drug abuse patient.[facility] HospitalIn the event this information is protected by the Federal Confidentiality of Alcohol and Drug Abuse Patient Records regulations: The Federal rules restrict any use of the information to criminally investigate or prosecute any alcohol or drug abuse patient.[facility] HospitalIn the event this information is protected by the Federal Confidentiality of Alcohol and Drug Abuse Patient Records regulations: The Federal rules restrict any use of the information to criminally investigate or prosecute any alcohol or drug abuse patient.[facility] HospitalIn the event this information is protected by the Federal Confidentiality of Alcohol and Drug Abuse Patient Records regulations: The Federal rules restrict any use of the information to criminally investigate or prosecute any alcohol or drug abuse patient.[facility] HospitalIn the event this information is protected by the Federal Confidentiality of Alcohol and Drug Abuse Patient Records regulations: The Federal rules restrict any use of the information to criminally investigate or prosecute any alcohol or drug abuse patient.[facility] HospitalIn the event this information is protected by the Federal Confidentiality of Alcohol and Drug Abuse Patient Records regulations: The Federal rules restrict any use of the information to criminally investigate or prosecute any alcohol or drug abuse patient.[facility] HospitalIn the event this information is protected by the Federal Confidentiality of Alcohol and Drug Abuse Patient Records regulations: The Federal rules restrict any use of the information to criminally investigate or prosecute any alcohol or drug abuse patient.[facility] HospitalIn the event this information is protected by the Federal Confidentiality of Alcohol and Drug Abuse Patient Records regulations: The Federal rules restrict any use of the information to criminally investigate or prosecute any alcohol or drug abuse patient.[facility] HospitalIn the event this information is protected by the Federal Confidentiality of Alcohol and Drug Abuse Patient Records regulations: The Federal rules restrict any use of the information to criminally investigate or prosecute any alcohol or drug abuse patient.[facility] HospitalIn the event this information is protected by the Federal Confidentiality of Alcohol and Drug Abuse Patient Records regulations: The Federal rules restrict any use of the information to criminally investigate or prosecute any alcohol or drug abuse patient.[facility] HospitalIn the event this information is protected by the Federal Confidentiality of Alcohol and Drug Abuse Patient Records regulations: The Federal rules restrict any use of the information to criminally investigate or prosecute any alcohol or drug abuse patient.[facility] HospitalIn the event this information is protected by the Federal Confidentiality of Alcohol and Drug Abuse Patient Records regulations: The Federal rules restrict any use of the information to criminally investigate or prosecute any alcohol or drug abuse patient.[facility] HospitalIn the event this information is protected by the Federal Confidentiality of Alcohol and Drug Abuse Patient Records regulations: The Federal rules restrict any use of the information to criminally investigate or prosecute any alcohol or drug abuse patient.[facility] HospitalIn the event this information is protected by the Federal Confidentiality of Alcohol and Drug Abuse Patient Records regulations: The Federal rules restrict any use of the information to criminally investigate or prosecute any alcohol or drug abuse patient.[facility] the event this information is protected by the Federal Confidentiality of Alcohol and Drug Abuse Patient Records regulations: The Federal rules restrict any use of the information to criminally investigate or prosecute any alcohol or drug abuse patient.[facility] HospitalIn the event this information is protected by the Federal Confidentiality of Alcohol and Drug Abuse Patient Records regulations: The Federal rules restrict any use of the information to criminally investigate or prosecute any alcohol or drug abuse patient.[facility] HospitalIn the event this information is protected by the Federal Confidentiality of Alcohol and Drug Abuse Patient Records regulations: The Federal rules restrict any use of the information to criminally investigate or prosecute any alcohol or drug abuse patient.[facility] HospitalIn the event this information is protected by the Federal Confidentiality of Alcohol and Drug Abuse Patient Records regulations: The Federal rules restrict any use of the information to criminally investigate or prosecute any alcohol or drug abuse patient.[facility] HospitalIn the event this information is protected by the Federal Confidentiality of Alcohol and Drug Abuse Patient Records regulations: The Federal rules restrict any use of the information to criminally investigate or prosecute any alcohol or drug abuse patient.[facility] HospitalIn the event this information is protected by the Federal Confidentiality of Alcohol and Drug Abuse Patient Records regulations: The Federal rules restrict any use of the information to criminally investigate or prosecute any alcohol or drug abuse patient.[facility] HospitalIn the event this information is protected by the Federal Confidentiality of Alcohol and Drug Abuse Patient Records regulations: The Federal rules restrict any use of the information to criminally investigate or prosecute any alcohol or drug abuse patient.[facility] HospitalIn the event this information is protected by the Federal Confidentiality of Alcohol and Drug Abuse Patient Records regulations: The Federal rules restrict any use of the information to criminally investigate or prosecute any alcohol or drug abuse patient.[facility] HospitalIn the event this information is protected by the Federal Confidentiality of Alcohol and Drug Abuse Patient Records regulations: The Federal rules restrict any use of the information to criminally investigate or prosecute any alcohol or drug abuse patient.[facility] HospitalIn the event this information is protected by the Federal Confidentiality of Alcohol and Drug Abuse Patient Records regulations: The Federal rules restrict any use of the information to criminally investigate or prosecute any alcohol or drug abuse patient.[facility] HospitalIn the event this information is protected by the Federal Confidentiality of Alcohol and Drug Abuse Patient Records regulations: The Federal rules restrict any use of the information to criminally investigate or prosecute any alcohol or drug abuse patient.[facility] HospitalIn the event this information is protected by the Federal Confidentiality of Alcohol and Drug Abuse Patient Records regulations: The Federal rules restrict any use of the information to criminally investigate or prosecute any alcohol or drug abuse patient.[facility] HospitalIn the event this information is protected by the Federal Confidentiality of Alcohol and Drug Abuse Patient Records regulations: The Federal rules restrict any use of the information to criminally investigate or prosecute any alcohol or drug abuse patient.[facility] HospitalIn the event this information is protected by the Federal Confidentiality of Alcohol and Drug Abuse Patient Records regulations: The Federal rules restrict any use of the information to criminally investigate or prosecute any alcohol or drug abuse patient.[facility] HospitalIn the event this information is protected by the Federal Confidentiality of Alcohol and Drug Abuse Patient Records regulations: The Federal rules restrict any use of the information to criminally investigate or prosecute any alcohol or drug abuse patient.[facility] HospitalIn the event this information is protected by the Federal Confidentiality of Alcohol and Drug Abuse Patient Records regulations: The Federal rules restrict any use of the information to criminally investigate or prosecute any alcohol or drug abuse patient.[facility] HospitalIn the event this information is protected by the Federal Confidentiality of Alcohol and Drug Abuse Patient Records regulations: The Federal rules restrict any use of the information to criminally investigate or prosecute any alcohol or drug abuse patient.[facility] HospitalIn the event this information is protected by the Federal Confidentiality of Alcohol and Drug Abuse Patient Records regulations: The Federal rules restrict any use of the information to criminally investigate or prosecute any alcohol or drug abuse patient.[facility] HospitalIn the event this information is protected by the Federal Confidentiality of Alcohol and Drug Abuse Patient Records regulations: The Federal rules restrict any use of the information to criminally investigate or prosecute any alcohol or drug abuse patient.[facility] HospitalIn the event this information is protected by the Federal Confidentiality of Alcohol and Drug Abuse Patient Records regulations: The Federal rules restrict any use of the information to criminally investigate or prosecute any alcohol or drug abuse patient.[facility] HospitalIn the event this information is protected by the Federal Confidentiality of Alcohol and Drug Abuse Patient Records regulations: The Federal rules restrict any use of the information to criminally investigate or prosecute any alcohol or drug abuse patient.[facility] HospitalIn the event this information is protected by the Federal Confidentiality of Alcohol and Drug Abuse Patient Records regulations: The Federal rules restrict any use of the information to criminally investigate or prosecute any alcohol or drug abuse patient.[facility] HospitalIn the event this information is protected by the Federal Confidentiality of Alcohol and Drug Abuse Patient Records regulations: The Federal rules restrict any use of the information to criminally investigate or prosecute any alcohol or drug abuse patient.[facility] HospitalIn the event this information is protected by the Federal Confidentiality of Alcohol and Drug Abuse Patient Records regulations: The Federal rules restrict any use of the information to criminally investigate or prosecute any alcohol or drug abuse patient.[facility] HospitalIn the event this information is protected by the Federal Confidentiality of Alcohol and Drug Abuse Patient Records regulations: The Federal rules restrict any use of the information to criminally investigate or prosecute any alcohol or drug abuse patient.[facility] HospitalIn the event this information is protected by the Federal Confidentiality of Alcohol and Drug Abuse Patient Records regulations: The Federal rules restrict any use of the information to criminally investigate or prosecute any alcohol or drug abuse patient.[facility] HospitalIn the event this information is protected by the Federal Confidentiality of Alcohol and Drug Abuse Patient Records regulations: The Federal rules restrict any use of the information to criminally investigate or prosecute any alcohol or drug abuse patient.[facility] HospitalIn the event this information is protected by the Federal Confidentiality of Alcohol and Drug Abuse Patient Records regulations: The Federal rules restrict any use of the information to criminally investigate or prosecute any alcohol or drug abuse patient.[facility] HospitalIn the event this information is protected by the Federal Confidentiality of Alcohol and Drug Abuse Patient Records regulations: The Federal rules restrict any use of the information to criminally investigate or prosecute any alcohol or drug abuse patient.[facility] HospitalIn the event this information is protected by the Federal Confidentiality of Alcohol and Drug Abuse Patient Records regulations: The Federal rules restrict any use of the information to criminally investigate or prosecute any alcohol or drug abuse patient.[facility] HospitalIn the event this information is protected by the Federal Confidentiality of Alcohol and Drug Abuse Patient Records regulations: The Federal rules restrict any use of the information to criminally investigate or prosecute any alcohol or drug abuse patient.[facility] HospitalIn the event this information is protected by the Federal Confidentiality of Alcohol and Drug Abuse Patient Records regulations: The Federal rules restrict any use of the information to criminally investigate or prosecute any alcohol or drug abuse patient.[facility] HospitalIn the event this information is protected by the Federal Confidentiality of Alcohol and Drug Abuse Patient Records regulations: The Federal rules restrict any use of the information to criminally investigate or prosecute any alcohol or drug abuse patient.[facility] Reason for Visit (unrecogniz ed section [...] Date Comments Population Health Navigation Outreach 09/23/2021 [place] Reason Onset Date Comments Refill Request 10/15/2021 Reason Comments Physical Patient reports he w as in [facility] on 10/18/21 and was sent to ER for low SPO2 Reason Onset Date Comments Population Health Navigation Outreach 11/03/2021 [place] Att[place] Reason Comments Results Reason Comments Patient [...] Referred By Ade kong Referred To Contact Cardiology Diagnoses Bicuspid aortic valve Procedures CONSULT TO CARDIOLOGY OFFICE/OUTPATIENT [facility] 60-74 MINUTES Alyson Arthur MD [address] [place] [address] Referral ID Status Reason Start Date Expiration Date Visits Requested Visits Authorized [id number] Pending Review PCP Requested Referral 05/20/2022 05/20/2023 1 1 Reason Comments Diabetes Blood sugar: 162A1c: 7.4 Blurred Vision Both Eyes Difficulty Reading Both Eyes Specialty Diagnoses / Procedures Referred By Ade kong Referred To Contact Ophthalmology Diagnoses Type 2 diabetes mellitus with microalbuminuria, with long-term current use of insulin (HCC) Controlled type 2 diabetes mellitus with diabetic neuropathy, with long-term current use of insulin ([facility]) Procedures CONSULT TO OPHTHALMOLOGY OFFICE/OUTPATIENT [facility] 60-74 MINUTES Alyson Arthur MD [address] [place] [address] Referral ID Status Reason Start Date Expiration Date Visits Requested Visits Authorized [id number] Pending Review PCP Requested Referral 05/20/2022 05/20/2023 [...] motorize d scooter to go to [facility] [place] Reason Comments Follow Up Reason Comments Appointment Appointment Reason Comments Patient Update Reason Comments Insurance Authorization Reason Comments Insurance Authorization anahi Reason Comments Pharmacy Call Reason Comments Hospital Follow Up Reason Comments Consult Cutaneous abscess of right lower extremity Specialty Diagnoses / Procedures Referred By Contac t Referred To Contact General Surgery Diagnoses Cutaneous abscess of right lower extremity Cellulitis of skin Procedures CONSULT TO GENERAL SURGERY OFFICE/OUTPATIENT [facility] 60-74 MINUTES Alyson Arthur MD [address] [place] [address] Referral ID Status Reason Start Date Expiration Date Visits Requested Visits Authorized [id number] Pending Review PCP Requested Referral 10/25/2022 10/25/2023 1 1 Reason Comments Patient Request/ CPAP Order Fax Reason Comments Orders Reason Comments Spirometry Specialty Diagnoses / [facility] Diagnoses Encounter for preprocedural cardiovascular examination Sleep apnea, unspecified type Bicuspid aortic valve Nonrheumatic aortic valve stenosis Preoperative testing Procedures LUNG DIFFUSION CAPACITY ([facility]CO) DIFFUSING CAPACITY Leandro Foster, [employer] EXECUTIVE.[employer] [address] [place] [address] [facility] [place] [address] Referral ID Status Reason Start Date Expiration Date V isits Requested Visits Authorized [id number] Closed Auto-Generate d Referral OON/Self Pay Override 11/08/2022 12/08/2023 1 1 Specialty Diagnoses / [facility] Diagnoses Encounter for preprocedural cardiovascular examination Sleep apnea, unspecified type Bicuspid aortic valve Nonrheumatic aortic valve stenosis Preoperative testing Procedures LUNG VOLUMES Leandro Foster, COMMERCIAL LINES ACCOUNT EXECUTIVE.SEASONER HAND 1 [place] [phone] [facility] [place] [address] Referral ID Status Reason Start Date Expiration Date V isits Requested Visits Authorized [id number] Closed Auto-Generate d Referral OON/Self Pay Override 11/09/2022 02/12/2023 1 1 Specialty Diagnoses / Procedures Referred By Ade t Referred To Contact [facility] Diagnoses Encounter for preprocedural cardiovascular examination Sleep apnea, unspecified type Bicuspid aortic valve Nonrheumatic aortic valve stenosis Preoperative testing Procedures SPIROMETRY BASELINE ONLY SPMTRY W/VC EXPIRATORY JUAN W/WO MXML VOL VNTJ Leandro Foster, COMMERCIAL LINES ACCOUNT EXECUTIVE.SEASONER HAND 1 [place] [address] [facility] [address] [place] [address] Referral ID Status Reason Start Date Expiration Date V isits Requested Visits Authorized [id number] Closed Auto-Generate d Referral OON/Self Pay Override 11/08/2022 12/08/2023 1 1 Reason Onset Date Comments Refill Request 11/21/2022 Specialty Diagnoses / Procedures Referred By Ade t Referred To Contact CT IMAGING Diagnoses Encounter for preprocedural cardiovascular examination Sleep apnea, unspecified type Bicuspid aortic valve Nonrheumatic aortic valve stenosis Preoperative testing Procedures CTA ABD/PEL W IVCON CT ANGIO ABD&PLVIS CNTRST MTRL W/WO CNTRST Leandro Jesus, COMMERCIAL LINES ACCOUNT EXECUTIVE.SEASONER HAND [address] [place] [address] [place] [id number] Referral ID Status Reason Start Date Expiration Date V isits Requested Visits Authorized [id number] Closed Auto-Generate d Referral 11/08/2022 12/08/2023 1 1 Reason Comments Future Appointment Reason Comments blister on R foot Reason Comments New Swelling Blister Specialty Diagnoses / Procedures Referred By Ade t Referred To Contact Podiatry Diagnoses Blister (nonthermal), right foot, initial encounter Controlled type 2 diabetes mellitus with diabetic neuropathy, with long-term current use of insulin (HCC) Procedures CONSULT TO PODIATRY OFFICE/OUTPATIENT NEW HIGH MDM 60-74 MINUTES Pascual Bacon MD [address] [place] [address] Referral ID Status Reason Start Date Expiration Date Visits Requested Visits Authorized [id number] Pending Review PCP Requested Referral 11/30/2023 1 [...] DOSE LNG CA SCR Nathen- Amauri Jo, COMMERCIAL LINES ACCOUNT EXECUTIVE.SEASONER HAND [address] [place] [address] Ct Imaging [place] [address] Referral ID Status Reason Start Date Expiration Date V isits Requested Visits Authorized [id number] Closed Auto-Generate d Referral 06/28/2022 07/28/2023 1 1 Reason Comments Valvular Heart Disease Kiel is here t o review testing Reason Comments Orders Reason Comments multidisciplinary heart team meeting Reason Onset Date Comments Refill Request 12/29/2022 Reason Onset Date Comments Refill Request 01/09/2023 Reason Onset Date Comments Refill Request 01/27/2023 Reason Comments Pre-Op Exam Specialty Diagnoses / Procedures 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) Procedures CARDIOTHORACIC PREOP EVALUATION OFFICE/OUTPATIENT [facility] 60 MINUTES Shlomo Alcocer MD [address] [place] [address] Specialty Diagnoses / Procedures Referred By Contac t Referred To Contact Cardiology Diagnoses Controlled type 2 diabetes mellitus without complication, unspecified whether terminologist insulin use (HCC) Pre-operative cardiovascular examination Aortic valve disorder 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) Procedures CONSULT TO CARDIOLOGY OFFICE/OUTPATIENT NEW HIGH MDM 60 MINUTES Shlomo Alcocer MD [address] [place] [address] Referral ID Status Reason Start Date Expiration Date V isits Requested Visits Authorized [id number] Closed PCP Requested Referral 03/02/2023 03/01/2024 1 1 Reason Comments Request for discharge instructions from [facility] [place] on Reason Comments Appointment Reason Comments requesting [...] 06/26/2023 Specialty Diagnoses / Procedures Referred By Contac t Referred To Contact CT IMAGING Diagnoses 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) Procedures CTA CHEST (GATED) W IVCON CT ANGIOGRAPHY CHEST W/CONTRAST/NONCONTRAST Elma Hester, PRICILA.TODD [address] [place] [address] Ct Imaging [place] [address] Referral ID Status Reason Start Date Expiration Date V isits Requested Visits Authorized [id number] Closed Auto-Generate d Referral 03/28/2023 04/26/2024 1 1 Reason Comments FYI-PT Home Health Update Reason Comments Home Health Update Reason Comments OT requesting verbal order Reason Comments FYI-PT plan of care Reason Comments New Patient New Patient Evaluation Reason Comments Hospital Follow Up Reason Comments Home Health Point of Care Results Reason Onset Date Comments Refill Request 07/25/2023 Reason Comments [facility] PT- discharged pt today Reason Onset Date [...] payer Specialty Diagnoses / Procedures Referred By Ade t Referred To Contact [facility] Diagnoses xray Procedures XRAY EXAM OF RIBS/CHEST TC Alyson Arthur MD [address] [place] [address] [facility] [address] [place] [address] Referral ID Status Reason Start Date Expiration Date V isits Requested Visits Authorized [id number] Closed OON/Self Pay Override 10/25/2022 04/23/2023 1 [...] Date Comments Population Health Navigation Outreach 03/04/2024 Eladio nuñez Reason Onset Date Comments Refill Request 03/28/2024 Reason Onset Date Comments Population Health Navigation Outreach 04/03/2024 eladio nuñez Reason Onset Date Comments Population Health Navigation Outreach 05/03/2024 [employer] Nuñez Reason Onset Date Comments Refill Request 05/14/2024 Reason Onset Date Comments Care Coordination 05/21/2024 Referred to [facility] Reason Onset Date Comments Population Health Navigation Outreach 06/03/2024 [employer] Joaquin Reason Onset Date Comments Refill Request 06/21/2024 Reason Onset Date Comments Population Health Navigation Outreach 08/02/2024 Eladio Workbejose Nuñez Reason Comments Recheck Medication follow up Reason Onset Date Comments Refill Request 08/19/2024 Reason Onset Date Comments Refill Request 08/22/2024 Reason Onset Date Comments Population Health Navigation Outreach 09/03/2024 [facility] Specialty Diagnoses / Procedures Referred By Contac t Referred To Contact CT IMAGING Diagnoses Cigarette smoker Procedures CT LUNG SCREEN WO IVCON COMPUTED TOMOGRAPHY THORAX LW DOSE LNG CA Tony Arroyo, COMMERCIAL LINES ACCOUNT EXECUTIVE.SEASONER HAND [address] [place] [address] Phone: tel: fax: [place] [address] Referral ID Status Reason Start Date Expiration Date V isits Requested Visits Authorized [id number] Closed Auto-Generate d Referral 04/04/2024 05/04/2025 [address] Specialty Diagnoses / Procedures Referred By Contac t Referred To Contact CT IMAGING Diagnoses Cigarette smoker Procedures CT LUNG SCREEN WO IVCON COMPUTED TOMOGRAPHY THORAX LW DOSE LNG CA Tony Arroyo, COMMERCIAL LINES ACCOUNT EXECUTIVE.SEASONER HAND [address] [place] [address] Phone: tel: fax: [place] [address] Referral ID Status Reason Start Date Expiration Date V isits Requested Visits Authorized [id number] Closed Auto-Generate d Referral 04/04/2024 05/04/2025 1 1 Reason Onset Date Comments Refill Request 09/13/2024 Reason Comments Appointment Needs testing Reason Onset Date Comments Population Health Navigation Outreach 10/03/2024 [facility] Care Teams (unrecognized sec tion and content) Appliance Technician Relationship Specialty Start Date End Date Alyson Arthur MD [address] [place], [place] [address] PCP - General Family Practice 11/09/12 Appliance Technician Relationship Specialty Start Date End Date Alyson Arthur MD [address] [place], [place] [address] PCP - General Family Practice 11/09/12 Appliance Technician Relationship Specialty Start Date End Date Alyson Arthur MD [address] [place], [place] [address] PCP - General Family Practice 11/09/12 Appliance Technician Relationship Specialty Start Date End Date Alyson Arthur MD [address] [place] [address] PCP - General Family Practice 11/09/12 Appliance Technician Relationship Specialty Start Date End Date Alyson Arthur MD [address] [place] [address] PCP - General Family Practice 11/09/12 Appliance Technician Relationship Specialty Start Date End Date Alyson Arthur MD [address] [place] [address] PCP - General Family Practice 11/09/12 Appliance Technician Relationship Specialty Start Date End Date Alyson Arthur MD [address] [place] [address] PCP - General Family Practice 11/09/12 Appliance Technician Relationship Specialty Start Date End Date Alyson Arthur MD [address] [place] [address] PCP - General Family Practice 11/09/12 Appliance Technician Relationship Specialty Start Date End Date Alyson Arthur MD [address] [place] [address] PCP - General Family Practice 11/09/12 Appliance Technician Relationship Specialty Start Date End Date Alyson Arthur MD [address] [place] [address] PCP - General Family Medicine 11/09/12 Appliance Technician Relationship Specialty Start Date End Date Alyson Arthur MD [address] [place] [address] PCP - General Family Medicine 11/09/12 Appliance Technician Relationship Specialty Start Date End Date Alyson Arthur MD [address] [place] [address] PCP - General Family Medicine 11/09/12 Appliance Technician Relationship Specialty Start Date End Date Alyson Arthur MD [address] [place] [address] PCP - General Family Medicine 11/09/12 Appliance Technician Relationship Specialty Start Date End Date Alyson Arthur MD [address] [place] [address] PCP - General Family Medicine 11/09/12 Appliance Technician Relationship Specialty Start Date End Date Alyson Arthur MD [address] [place] [address] PCP - General Family Medicine 11/09/12 Appliance Technician Relationship Specialty Start Date End Date Alyson Arthur MD [address] [place] [address] PCP - General Family Medicine 11/09/12 Team Status: Active Member Role Status Dates Dr. Alyson Arthur MD Family Provider Active [facility] Primary Care Provider Active Team Status: Inactive Member Role Status Dates [facility] Primary Care Provider Active Dr. Walter Sellers MD Attending Provider Active Appliance Technician Relationship Specialty Start Date End Date Alyson Arthur MD [address] [place] [address] PCP - General Family Medicine 11/09/12 Appliance Technician Relationship Specialty Start Date End Date Alyson Arthur MD [address] [place] [address] PCP - General Family Medicine 11/09/12 Appliance Technician Relationship Specialty Start Date End Date Alyson Arthur MD [address] [place] [address] PCP - General Family Medicine 11/09/12 Appliance Technician Relationship Specialty Start Date End Date Alyson Arthur MD [address] [place] [address] PCP - General Family Medicine 11/09/12 Appliance Technician Relationship Specialty Start Date End Date Alyson Arthur MD [address] [place] [address] PCP - General Family Medicine 11/09/12 Appliance Technician Relationship Specialty Start Date End Date Alyson Arthur MD [address] [place] [address] PCP - General Family Medicine 11/09/12 Appliance Technician Relationship Specialty Start Date End Date Alyson Arthur MD [address] [place] [address] PCP - General Family Medicine 11/09/12 Appliance Technician Relationship Specialty Start Date End Date Alyson Arthur MD [address] [place] [address] PCP - General Family Medicine 11/09/12 Appliance Technician Relationship Specialty Start Date End Date Alyson Arthur MD [address] [facility] [place] [address] PCP - General Family Medicine 11/09/12 Appliance Technician Relationship Specialty Start Date End Date Alyson Arthur MD [address] [facility] [place] [address] PCP - General Family Medicine 11/09/12 Appliance Technician Relationship Specialty Start Date End Date Alyson Arthur MD [address] [facility] [place] [address] PCP - General Family Medicine 11/09/12 Team Status: Active Member Role Status Dates Dr. Alyson Arthur MD Family Provider Active Dr. Alyson Arthur MD Primary Care Provider Active Team Status: Inactive Member Role Status Dates Alyson TEJEDA Primary Care Provider Active Dr. Walter Sellers MD Attending Provider, Referring [facility] Active Team Status: Inactive Member Role Status Dates Jabier Blancas MD Emergency Provider Active Dr. Alyson Arthur MD Primary Care Provider Active Appliance Technician Relationship Specialty Start Date End Date Alyson Arthur MD [address] [place] [address] PCP - General Family Medicine 11/09/12 Appliance Technician Relationship Specialty Start Date End Date Alyson Arthur MD [address] [place] [address] PCP - General Family Medicine 11/09/12 Appliance Technician Relationship Specialty Start Date End Date Alyson Arthur MD [address] [place] [address] PCP - General Family Medicine 11/09/12 Appliance Technician Relationship Specialty Start Date End Date Alyson Arthur MD [address] [place], [place] [address] PCP - General Family Medicine 11/09/12 Appliance Technician Relationship Specialty Start Date End Date Alyson Arthur MD [address] [place], [place] [address] PCP - General Family Medicine 11/09/12 Team [...] MD Admit Provider, Attending Prov ider Active Appliance Technician Relationship Specialty Start Date End Date Alyson Arthur MD [address] [place] [address] PCP - General Family Medicine 11/09/12 Appliance Technician Relationship Specialty Start Date End Date Alyson Arthur MD [address] [place] [address] PCP - General Family Medicine 11/09/12 Appliance Technician Relationship Specialty Start Date End Date Alyson Arthur MD [address] [place] [address] PCP - General Family Medicine 11/09/12 Appliance Technician Relationship Specialty Start Date End Date Alyson Arthur MD [address] [place] [address] PCP - General Family Medicine 11/09/12 Appliance Technician Relationship Specialty Start Date End Date Alyson Arthur MD [address] [place] [address] PCP - General Family Medicine 11/09/12 Appliance Technician Relationship Specialty Start Date End Date Alyson Arthur MD [address] [place] [address] PCP - General Family Medicine 11/09/12 Appliance Technician Relationship Specialty Start Date End Date Alyson Arthur MD [address] [place], [place] 583781 PCP - General Family Medicine 11/09/12 Appliance Technician Relationship Specialty Start Date End Date Alyson Arthur MD [address] [place], [place] [address]406[address] PCP - General Family Medicine 11/09/12 Appliance Technician Relationship Specialty Start Date End Date Alyson Arthur MD [address] [place] [address] PCP - General Family Medicine 11/09/12 Appliance Technician Relationship Specialty Start Date End Date Alyson Arthur MD [address] [place] [address] PCP - General Family Medicine 11/09/12 Appliance Technician Relationship Specialty Start Date End Date Alyson Arthur MD [address] [place] [address] PCP - General Family Medicine 11/09/12 Appliance Technician Relationship Specialty Start Date End Date Alyson Arthur MD [address] [place] [address] PCP - General Family Medicine 11/09/12 Appliance Technician Relationship Specialty Start Date End Date Alyson Arthur MD [address] [place] [address] PCP - General Family Medicine 11/09/12 Appliance Technician Relationship Specialty Start Date End Date Alyson Arthur MD [address] [place] [address] PCP - General Family Medicine 11/09/12 Appliance Technician Relationship Specialty Start Date End Date Alyson Arthur MD [address] [place], [place] [address] PCP - General Family Medicine 11/09/12 Appliance Technician Relationship Specialty Start Date End Date Alyson Arthur MD [address] [place], [place] [address]89638 PCP - General Family Medicine 11/09/12 Appliance Technician Relationship Specialty Start Date End Date Alyson Arthur MD [address] [place] [address] PCP - General Family Medicine 11/09/12 Appliance Technician Relationship Specialty Start Date End Date Alyson Arthur MD [address] [place] [address] PCP - General Family Medicine 11/09/12 Shlomo Alcocer MD [address] [place] [address] Surgeon Cardiac Surg 02/20/23 Benjamin Pike MD [address] [place] [address] Referring Cardiovascular Surgery 02/20/23 Kiel Barnes MD [address] [place], [place] [id number] Primary Staff Physician Cardiology 03/15/23 Appliance Technician Relationship Specialty Start Date End Date Alyson Arthur MD [address] [place], [place] [address]861 PCP - General Family Medicine 11/09/12 Shlomo Alcocer MD [address] [place] [address] Surgeon Cardiac Surg 02/20/23 Benjamin Pike MD [address] [facility] [place], [place] [id number] Referring Cardiovascular Surgery 02/20/23 Kiel Barnes MD [address] [place], [place] [id number] Primary Staff Physician Cardiology 03/15/23 Appliance Technician Relationship Specialty Start Date End Date Alyson Arthur MD [address] [place], [place] [address]75281 PCP - General Family Medicine 11/09/12 Shlomo Alcocer MD [address] [place] [address] Surgeon Cardiac Surg 02/20/23 Benjamin Pike MD [address] [facility] [place], [place] [id number] Referring Cardiovascular Surgery 02/20/23 Kiel Barnes MD [address] [place] [address] Primary Staff Physician Cardiology 03/15/23 Appliance Technician Relationship Specialty Start Date End Date Alyson Arthur MD [address] [place] [address] PCP - General Family Medicine 11/09/12 Shlomo Alcocer MD [address] [place] [address] Surgeon Cardiac Surg 02/20/23 Benjamin Pike MD [address] [facility] [place] [id number] Referring Cardiovascular Surgery 02/20/23 Kiel Barnes MD [address] [place] [id number] Primary Staff Physician Cardiology 03/15/23 Appliance Technician Relationship Specialty Start Date End Date Alyson Arthur MD [address] [place], [place] 316991 PCP - General Family Medicine 11/09/12 Shlomo Alcocer MD [address] [place] [address] Surgeon Cardiac Surg 02/20/23 Benjamin Pike MD [address] [place], [place] [id number] Referring Cardiovascular Surgery 02/20/23 Kiel Barnes MD [address] [place], [place] [id number] Primary Staff Physician Cardiology 03/15/23 Appliance Technician Relationship Specialty Start Date End Date Alyson Arthur MD [address] [place] [address] PCP - General Family Medicine 11/09/12 Shlomo Alcocer MD [address] [place] [address] Surgeon Cardiac Surg 02/20/23 Benjamin Pike MD [address] [place] [address] Referring Cardiovascular Surgery 02/20/23 Kiel Barnes MD [address] [place], [place] [id number] Primary Staff Physician Cardiology 03/15/23 Appliance Technician Relationship Specialty Start Date End Date Alyson Arthur MD [address] [place], [place] 157691 PCP - General Family Medicine 11/09/12 Shlomo Alcocer MD [address] [facility] [address] Surgeon Cardiac Surg 02/20/23 Benjamin Pike MD [address] [place] [address] Referring Cardiovascular Surgery 02/20/23 Kiel Barnes MD [address] [place], [place] 56[address] Primary Staff Physician Cardiology 03/15/23 Appliance Technician Relationship Specialty Start Date End Date Alyson Arthur MD [address] [place] [address] PCP - General Family Medicine 11/09/12 Shlomo Alcocer MD [address] [place] [address] Surgeon Cardiac Surg 02/20/23 Benjamin Pike MD [address] [place] [address] Referring Cardiovascular Surgery 02/20/23 Kiel Barnes MD [address] [place], [place] [phone] Primary Staff Physician Cardiology 03/15/23 Appliance Technician Relationship Specialty Start Date End Date Alyson Arthur MD [address] [place], [place] [address]71 PCP - General Family Medicine 11/09/12 Shlomo Alcocer MD [address] [place], [place] [address] Surgeon Cardiac Surg 02/20/23 Benjamin Pike MD [address] [facility] [place], [place] [id number] Referring Cardiovascular Surgery 02/20/23 Kiel Barnes MD [address] [place] [address] Primary Staff Physician Cardiology 03/15/23 Appliance Technician Relationship Specialty Start Date End Date Alyson Arthur MD [address] [place], [place] 259491 PCP - General Family Medicine 11/09/12 Shlomo Alcocer MD [address] [place] [address] Surgeon Cardiac Surg 02/20/23 Benjamin Pike MD [address] [place] [address] Referring Cardiovascular Surgery 02/20/23 Kiel Barnes MD [address] [place] [address] Primary Staff Physician Cardiology 03/15/23 Appliance Technician Relationship Specialty Start Date End Date Alyson Arthur MD [address] [place] [address] PCP - General Family Medicine 11/09/12 Shlomo Alcocer MD [address] [place] [address] Surgeon Cardiac Surg 02/20/23 Benjamin Pike MD [address] [place], [place] [phone] Referring Cardiovascular Surgery 02/20/23 Kiel Barnes MD [address] [place], [place] [phone] Primary Staff Physician Cardiology 03/15/23 Appliance Technician Relationship Specialty Start Date End Date Alyson Arthur MD [address] [place], [place] 4542[address] PCP - General Family Medicine 11/09/12 Shlomo Alcocer MD [address] [place] [address] Surgeon Cardiac Surg 02/20/23 Benjamin Pike MD [address] [place] [address] Referring Cardiovascular Surgery 02/20/23 Kiel Barnes MD [address] [place], [place] [id number] Primary Staff Physician Cardiology 03/15/23 Appliance Technician Relationship Specialty Start Date End Date Alyson Arthur MD [address] [place] [address] PCP - General Family Medicine 11/09/12 Shlomo Alcocer MD [address] [facility] [place] [address] Surgeon Cardiac Surg 02/20/23 Benjamin Pike MD [address] [place] [address] Referring Cardiovascular Surgery 02/20/23 Kiel Barnes MD [address] [place] [address] Primary Staff Physician Cardiology 03/15/23 Appliance Technician Relationship Specialty Start Date End Date Alyson Arthur MD [address] [place], [place] 266051 PCP - General Family Medicine 11/09/12 Shlomo Alcocer MD [address] [place] [address] Surgeon Cardiac Surg 02/20/23 Benjamin Pike MD [address] [place] [address] Referring Cardiovascular Surgery 02/20/23 Kiel Barnes MD [address] [place], [place] [phone] Primary Staff Physician Cardiology 03/15/23 Appliance Technician Relationship Specialty Start Date End Date Alyson Arthur MD [address] [place], [place] 285771 PCP - General Family Medicine 11/09/12 Shlomo Alcocer MD [address] [place] [address] Surgeon Cardiac Surg 02/20/23 Benjamin Pike MD [address] [place], [place] [phone] Referring Cardiovascular Surgery 02/20/23 Kiel Barnes MD [address] [place], [place] [id number] Primary Staff Physician Cardiology 03/15/23 Appliance Technician Relationship Specialty Start Date End Date Alyson Arthur MD [address] [place], [place] 758981 PCP - General Family Medicine 11/09/12 Shlomo Alcocer MD [address] [place] [place], [place] [phone] Surgeon Cardiac Surg 02/20/23 Benjamin Pike MD [address] [place], [place] [phone] Referring Cardiovascular Surgery 02/20/23 Kiel Barnes MD [address] [place] [address] Primary Staff Physician Cardiology 03/15/23 Appliance Technician Relationship Specialty Start Date End Date Alyson Arthur MD [address] [place] [address] PCP - General Family Medicine 11/09/12 Shlomo Alcocer MD [address] [place] [address] Surgeon Cardiac Surg 02/20/23 Benjamin Pike MD [address] [place], [place] [id number] Referring Cardiovascular Surgery 02/20/23 Kiel Barnes MD [address] [place] [address], [place] [address] Primary Staff Physician Cardiology 03/15/23 Appliance Technician Relationship Specialty Start Date End Date Alyson Arthur MD [address] [place] [address] PCP - General Family Medicine 11/09/12 Shlomo Alcocer MD [address] [place] [address] Surgeon Cardiac Surg 02/20/23 Benjamin Pike MD [address] [place], [place] [phone] Referring Cardiovascular Surgery 02/20/23 Kiel Barnes MD [address] [place] [address] Primary Staff Physician Cardiology 03/15/23 Appliance Technician Relationship Specialty Start Date End Date Alyson Arthur MD [address] [place] [address] PCP - General Family Medicine 11/09/12 Shlomo Alcocer MD [address] [place] [address] Surgeon Cardiac Surg 02/20/23 Benjamin Pike MD [address] [place], [place] [phone] Referring Cardiovascular Surgery 02/20/23 Kiel Barnes MD [address] [place], [place] [phone] Primary Staff Physician Cardiology 03/15/23 Appliance Technician Relationship Specialty Start Date End Date Alyson Arthur MD [address] [place] [address] PCP - General Family Medicine 11/09/12 Shlomo Alcocer MD [address] [place] [address] Surgeon Cardiac Surg 02/20/23 Benjamin Pike MD [address] [place] [address] Referring Cardiovascular Surgery 02/20/23 Kiel Barnes MD [address] [place], [place] [phone] Primary Staff Physician Cardiology 03/15/23 Appliance Technician Relationship Specialty Start Date End Date Alyson Arthur MD [address] [place] [address] PCP - General Family Medicine 11/09/12 Shlomo Alcocer MD [address] [place] [address] Surgeon Cardiac Surg 02/20/23 Benjamin Pike MD [address] [place] [address] Referring Cardiovascular Surgery 02/20/23 Kiel Barnes MD [address] [place], [place] [phone] Primary Staff Physician Cardiology 03/15/23 Team Status: [...] MD Emergency Provider Active Dr. Patrick Sharma DO Admit Provi kaveh, Attending Provider, Referring Provider Active Appliance Technician Relationship Specialty Start Date End Date Alyson Arthur MD [address] [place] [address] PCP - General Family Medicine 11/09/12 Shlomo Alcocer MD [address] [place], [place] [address]686[address] Surgeon Cardiac Surg 02/20/23 Benjamin Pike MD [address] [place] [address] Referring Cardiovascular Surgery 02/20/23 Kiel Barnes MD [address] [place] [address] Primary Staff Physician Cardiology 03/15/23 Team Status: Active Member Role Status Dates Dr. Alyson Arthur MD Primary Care Provider Active Dr. Carmen Matthews MD Emergency Provider Active Dr. Patrick Sharma DO Admit Provi kaveh, Referring Provider, Other Provider Active Dr. Trip Fraire DO Other Provider Active Dr. Madhu Smith MD Other Provider Active Dr. Raj Stevenson MD Attending Provider Active Team Status: Active Member Role Status Dates Dr. Alyson Arthur MD Primary Care Provider Active Dr. Carmen Matthews MD Emergency Provider Active Dr. Patrick Sharma DO Admit Provi kaveh, Referring Provider, Other Provider Active Dr. Trip Fraire DO Attending Provider, Other Provid er Active Dr. Raj Stevenson MD Other Provider Active Team Status: Active Member Role Status Dates Dr. Alyson Arthur MD Primary Care Provider Active Dr. Carmen Matthews MD Emergency Provider Active Dr. Patrick Mosteller , DO Admit Provi kaveh, Referring Provider, Other Provider Active Dr. Trip Fraire , Other Provider Active Dr. Raj Stevenson MD Other Provider Active Dr. Kiel Chacon MD Attending Provider Active Team Status: Inactive Member Role Status Dates Dr. Alyson Arthur MD Primary Care Provider Active Dr. Carmen Matthews MD Emergency Provider Active Dr. Patrick Sharma , DO Admit Provi kaveh, Referring Provider, Other Provider Active Dr. Trip Fraire , Attending Provider Active Dr. Raj Stevenson MD Other Provider Active Appliance Technician Relationship Specialty Start Date End Date Alyson Arthur MD [address] [place], [place] [address] PCP - General Family Medicine 11/09/12 Shlomo Alcocer MD [address] [place] [address] Surgeon Cardiac Surg 02/20/23 Benjamin Pike MD [address] [place] [address] Referring Cardiovascular Surgery 02/20/23 Kiel Barnes MD [address] [place] [address] Primary Staff Physician Cardiology 03/15/23 Appliance Technician Relationship Specialty Start Date End Date Alyson Arthur MD [address] [place] [address] PCP - General Family Medicine 11/09/12 Shlomo Alcocer MD [address] [place] [address] Surgeon Cardiac Surg 02/20/23 Benjamin Pike MD [address] [place] [address] Referring Cardiovascular Surgery 02/20/23 Kiel Barnes MD [address] [place], [place] [phone] Primary Staff Physician Cardiology 03/15/23 Appliance Technician Relationship Specialty Start Date End Date Alyson Arthur MD [address] [place], [place] 445571 PCP - General Family Medicine 11/09/12 Shlomo Alcocer MD [address] [facility] [place] [place] [address] Surgeon Cardiac Surg 02/20/23 Benjamin Pike MD [address] [place] [address] Referring Cardiovascular Surgery 02/20/23 Kiel Barnes MD [address] [place] [address] Primary Staff Physician Cardiology 03/15/23 Appliance Technician Relationship Specialty Start Date End Date Alyson Arthur MD [address] [place] [address] PCP - General Family Medicine 11/09/12 Shlomo Alcocer MD [address] [place] [address] Surgeon Cardiac Surg 02/20/23 Benjamin Pike MD [address] [place], [place] [phone] Referring Cardiovascular Surgery 02/20/23 Kiel Barnes MD [address] [place] [address] Primary Staff Physician Cardiology 03/15/23 Appliance Technician Relationship Specialty Start Date End Date Alyson Arthur MD [address] [place] [address] PCP - General Family Medicine 11/09/12 Shlomo Alcocer MD [address] [place] [address] Surgeon Cardiac Surg 02/20/23 Benjamin Pike MD [address] [place], [place] [phone] Referring Cardiovascular Surgery 02/20/23 Kiel Barnes MD [address] [place] [address] Primary Staff Physician Cardiology 03/15/23 Appliance Technician Relationship Specialty Start Date End Date Alyson Arthur MD [address] [place] [address] PCP - General Family Medicine 11/09/12 Shlomo Alcocer MD [address] [place] [address] Surgeon Cardiac Surg 02/20/23 Benjamin Pike MD [address] [place], [place] [phone] Referring Cardiovascular Surgery 02/20/23 Kiel Barnes MD [address] [place], [place] 24[address] Primary Staff Physician Cardiology 03/15/23 Appliance Technician Relationship Specialty Start Date End Date Alyson Arthur MD [address] [place], [place] [address] PCP - General Family Medicine 11/09/12 Shlomo Alcocer MD [address] [place] [address] Surgeon Cardiac Surg 02/20/23 Benjamin Pike MD [address] [place], [place] [phone] Referring Cardiovascular Surgery 02/20/23 Kiel Barnes MD [address] [place], [place] [phone] Primary Staff Physician Cardiology 03/15/23 Appliance Technician Relationship Specialty Start Date End Date Alyson Arthur MD [address] [place] [address] PCP - General Family Medicine 11/09/12 Shlomo Alcocer MD [address] [place] [address] Surgeon Cardiac Surg 02/20/23 Benjamin Pike MD [address] [place] [address] Referring Cardiovascular Surgery 02/20/23 Kiel Barnes MD [address] [place] [address] Primary Staff Physician Cardiology 03/15/23 Appliance Technician Relationship Specialty Start Date End Date Alyson Arthur MD [address] [place] [address] PCP - General Family Medicine 11/09/12 Shlomo Alcocer MD [address] [place] [address] Surgeon Cardiac Surg 02/20/23 Benjamin Pike MD 1 [place] [address] Referring Cardiovascular Surgery 02/20/23 Kiel Barnes MD [address] [place], [place] [phone] Primary Staff Physician Cardiology 03/15/23 Appliance Technician Relationship Specialty Start Date End Date Alyson Arthur MD [address] [place] [address] PCP - General Family Medicine 11/09/12 Shlomo Alcocer MD [address] [place] [address] Surgeon Cardiac Surg 02/20/23 Benjamin Pike MD 1 [place] [address] Referring Cardiovascular Surgery 02/20/23 Kiel Barnes MD [address] [place], [place] [phone] Primary Staff Physician Cardiology 03/15/23 Appliance Technician Relationship Specialty Start Date End Date Alyson Arthur MD [address] [place], [place] 565101 PCP - General Family Medicine 11/09/12 Shlomo Alcocer MD [address] [facility] [place] [address] Surgeon Cardiac Surg 02/20/23 Benjamin Pike MD [address] [place], [place] [phone] Referring Cardiovascular Surgery 02/20/23 Kiel Barnes MD [address] [place] [address] Primary Staff Physician Cardiology 03/15/23 Appliance Technician Relationship Specialty Start Date End Date Alyson Arthur MD [facility] [place], [place] [id number] PCP - General Family Medicine 11/09/12 Shlomo Alcocer MD [address] [facility] [place] [address] Surgeon Cardiac Surg 02/20/23 Benjamin Pike MD [address] [place] [address] Referring Cardiovascular Surgery 02/20/23 Kiel Barnes MD [address] [place] [address] Primary Staff Physician Cardiology 03/15/23 Appliance Technician Relationship Specialty Start Date End Date Alyson Arthur MD [facility] [place], [place] 6[address]561 PCP - General Family Medicine 11/09/12 Shlomo Alcocer MD [address] [place] [address] Surgeon Cardiac Surg 02/20/23 Benjamin Pike MD [address] [place], [place] [phone] Referring Cardiovascular Surgery 02/20/23 Kiel Barnes MD [address] [place], [place] 506[address] Primary Staff Physician Cardiology 03/15/23 Appliance Technician Relationship Specialty Start Date End Date Alyson Arthur MD [address] [place], [place] [address]181 PCP - General Family Medicine 11/09/12 Appliance Technician Relationship Specialty Start Date End Date Alyson Arthur MD [address] [place], [place] 787171 PCP - General Family Medicine 11/09/12 Shlomo Alcocer MD [address] [place] [address] Surgeon Cardiac Surg 02/20/23 Benjamin Pike MD [address] [place] [address] Referring Cardiovascular Surgery 02/20/23 Kiel Barnes MD [address] [place] [address] Primary Staff Physician Cardiology 03/15/23 Appliance Technician Relationship Specialty Start Date End Date Alyson Arthur MD [address] [place] [address] PCP - General Family Medicine 11/09/12 Appliance Technician Relationship Specialty Start Date End Date Alyson Arthur MD [address] [place], [place] 336441 PCP - General Family Medicine 11/09/12 Appliance Technician Relationship Specialty Start Date End Date Alyson Arthur MD [address] [place], [place] 340261 PCP - General Family Medicine 11/09/12 Appliance Technician Relationship Specialty Start Date End Date Alyson Atrhur MD [address] [place], [place] 960741 PCP - General Family Medicine 11/09/12 Shlomo Alcocer MD [address] [place] [address] Surgeon Cardiac Surg 02/20/23 Benjamin Pike MD [address] [place] [address] Referring Cardiovascular Surgery 02/20/23 Kiel Barnes MD [address] [place] [address] Primary Staff Physician Cardiology 03/15/23 Appliance Technician Relationship Specialty Start Date End Date Alyson Arthur MD [address] [place] [address] PCP - General Family Medicine 11/09/12 Shlomo Alcocer MD [address] [place] [address] Surgeon Cardiac Surg 02/20/23 Benjamin Pike MD [address] [place], [place] [phone] Referring Cardiovascular Surgery 02/20/23 Kiel Barnes MD [address] [place], [place] 8[address]60[address] Primary Staff Physician Cardiology 03/15/23 Appliance Technician Relationship Specialty Start Date End Date Alyson Arthur MD [address] [place], [place] 132881 PCP - General Family Medicine 11/09/12 Shlomo Alcocer MD [address] [place], [place] 4821495 Surgeon Cardiac Surg 02/20/23 Benjamin Pike MD [address] [place] [address] Referring Cardiovascular Surgery 02/20/23 Kiel Barnes MD [address] [place], [place] 0505295 Primary Staff Physician Cardiology 03/15/23 Angela Schmid, COMMERCIAL LINES ACCOUNT EXECUTIVE.SEASONER HAND [address] [place] [address] Electric Truck Operator Family Medicine 01/22/24 Margi Riddle, COMMERCIAL LINES ACCOUNT EXECUTIVE.SEASONER HAND [address] [place] [address] Electric Truck Operator Family Medicine 01/22/24 Appliance Technician Relationship Specialty Start Date End Date Alyson Arthur MD [address] [place] [address] PCP - General Family Medicine 11/09/12 Shlomo Alcocer MD [address] [place] [address] Surgeon Cardiac Surg 02/20/23 Benjamin Pike MD 1 [place] [address] Referring Cardiovascular Surgery 02/20/23 Kiel Barnes MD [address] [place], [place] 1234195 Primary Staff Physician Cardiology 03/15/23 Angela Schmid APRN.SEASONER HAND [address] [place] [address] Electric Truck Operator Family Medicine 01/22/24 Margi Riddle APRN.SEASONER HAND [address] [place] [address] Electric Truck Operator Family [facility] 01/22/24 Appliance Technician Relationship Specialty Start Date End Date Alyson Arthur MD [address] [place] [address] PCP - General Family Medicine 11/09/12 Shlomo Alcocer MD [address] [place] [address] Surgeon Cardiac Surg 02/20/23 Benjamin Pike MD [address] [place], [place] [phone] Referring Cardiovascular Surgery 02/20/23 Kiel Barnes MD [address] [place], [place] 9988195 Primary Staff Physician Cardiology 03/15/23 Angela Schmid APRN.SEASONER HAND [address] [place] [address] Electric Truck Operator [facility] 01/22/24 Margi Riddle APRN.SEASONER HAND [address] [place] [address] Electric Truck Operator [facility] 01/22/24 Appliance Technician Relationship Specialty Start Date End Date Alyson rAthur MD [address] [place], [place] 092361 PCP - General Family Medicine 11/09/12 Shlomo Alcocer MD [address] [place], [place] 7383295 Surgeon Cardiac Surg 02/20/23 Benjamin Pike MD [address] [place] [address] Referring Cardiovascular Surgery 02/20/23 Kiel Barnes MD [address] [place] [address] Primary Staff Physician Cardiology 03/15/23 Angela Schmid APRN.SEASONER HAND [address] [place] [address] [facility] 01/22/24 Margi Riddle APRN.SEASONER HAND [address] [place] [address] [facility] 01/22/24 Appliance Technician Relationship Specialty Start Date End Date Alyson Arthur MD [address] [place] [address] PCP - General Family Medicine 11/09/12 Shlomo Alcocer MD [address] [place] [address] Surgeon Cardiac Surg 02/20/23 Benjamin Pike MD [address] [place], [place] [phone] Referring Cardiovascular Surgery 02/20/23 Kiel Barnes MD [address] [place], [place] 7522195 Primary Staff Physician Cardiology 03/15/23 Angela Schmid APRN.SEASONER HAND [address] [place] [address] Electric Truck Operator Family [facility] 01/22/24 Margi Riddle COMMERCIAL LINES ACCOUNT EXECUTIVE.SEASONER HAND [address] [place] [address] [facility] 01/22/24 Appliance Technician Relationship Specialty Start Date End Date Alyson Arthur MD [address] [place] [address] PCP - General Family Medicine 11/09/12 Shlomo Alcocer MD [address] [place], [place] 2023995 Surgeon Cardiac Surg 02/20/23 Benjamin Pike MD 1 [place] [address] Referring Cardiovascular Surgery 02/20/23 Kile Barnes MD [address] [place] [address] Primary Staff Physician Cardiology 03/15/23 Angela Schmid APRN.SEASONER HAND [address] [place] [address] Electric Truck Operator [facility] 01/22/24 Margi Riddle APRN.SEASONER HAND [address] [place] [address] [facility] 01/22/24 Appliance Technician Relationship Specialty Start Date End Date Alyson Arthur MD [address] [place], [place] 298381 PCP - General Family Medicine 11/09/12 Shlomo Alcocer MD [address] [place] [address] Surgeon Cardiac Surg 02/20/23 Benjamin Pike MD [address] [place] [address] Referring Cardiovascular Surgery 02/20/23 Kiel Barnes MD [address] [place] [address] Primary Staff Physician Cardiology 03/15/23 Angela Schmid APRN.SEASONER HAND [address] [place], [place] 179281 [facility] 01/22/24 Margi Riddle APRN.SEASONER HAND [address] [place], [place] 865181 Electric Truck Operator [facility] 01/22/24 Appliance Technician Relationship Specialty Start Date End Date Alyson Arthur MD [address] [place], [place] 855531 PCP - General Family Medicine 11/09/12 Shlomo Alcocer MD [address] [place] [address] Surgeon Cardiac Surg 02/20/23 Benjamin Pike MD [address] [place], [place] [phone] Referring Cardiovascular Surgery 02/20/23 Kiel Barnes MD [address] [place], [place] [phone] Primary Staff Physician Cardiology 03/15/23 Angela Schmid, COMMERCIAL LINES ACCOUNT EXECUTIVE.SEASONER HAND [address] [place] [address] [facility] 01/22/24 Margi Riddle, COMMERCIAL LINES ACCOUNT EXECUTIVE.SEASONER HAND [address] [place] [address] [facility] 01/22/24 Appliance Technician Relationship Specialty Start Date End Date Alyson Arthur MD [address] [place] [address] PCP - General Family Medicine 11/09/12 Shlomo Alcocer MD [address] [place] [address] Surgeon Cardiac Surg 02/20/23 Benjamin Pike MD 1 [place] [address] Referring Cardiovascular Surgery 02/20/23 Kiel Barnes MD [address] [place] [address] Primary Staff Physician Cardiology 03/15/23 Angela Schmid APRN.SEASONER HAND [address] [place] [address] [facility] 01/22/24 Margi Riddle APRN.SEASONER HAND [address] [place] [address] [facility] 01/22/24 Appliance Technician Relationship Specialty Start Date End Date Alyson Arthur MD [address] [place] [address] PCP - General Family Medicine 11/09/12 Shlomo Alcocer MD [address] [place] [address] Surgeon Cardiac Surg 02/20/23 Benjamin Pike MD 1 [place] [address] Referring Cardiovascular Surgery 02/20/23 Angela Schmid APRN.SEASONER HAND [address] [place] [address] [facility] 01/22/24 Margi Riddle APRN.SEASONER HAND [address] [place] [address] [facility] 01/22/24 Team Status: Inactive Member Role [...] July 24, 2024 End: July 24, 2024 Appliance Technician Relationship Specialty Start Date End Date Alyson Arthur MD [address] [place], [place] [address]8601 PCP - General Family Medicine 11/09/12 Shlomo Alcocer MD [address] [place] [address] Surgeon Cardiac Surg 02/20/23 Angela Schmid, PRICILA.SEASONER HAND [address] [place], [place] 966941 Electric Truck Operator [facility] Medicine 01/22/24 Margi Riddle COMMERCIAL LINES ACCOUNT EXECUTIVE.SEASONER HAND [address] [place], [place] 287391 Electric Truck Operator Family Medicine 01/22/24 Appliance Technician Relationship Specialty Start Date End Date Alyson Arthur MD [address] [place], [place] 427811 PCP - General Family Medicine 11/09/12 Shlomo Alcocer MD [address] [place] [address] Surgeon Cardiac Surg 02/20/23 Angela Schmid, COMMERCIAL LINES ACCOUNT EXECUTIVE.SEASONER HAND [address] [place] [address] Electric Truck Operator Family [facility] 01/22/24 Margi Riddle COMMERCIAL LINES ACCOUNT EXECUTIVE.SEASONER HAND [address] [place] [address] [facility] 01/22/24 Appliance Technician Relationship Specialty Start Date End Date Alyson Arthur MD [address] [place] [address] PCP - General Family Medicine 11/09/12 Shlomo Alcocer MD [address] [place] [address] Surgeon Cardiac Surg 02/20/23 Angela Schmid, COMMERCIAL LINES ACCOUNT EXECUTIVE.SEASONER HAND [address] [place] [address] [facility] 01/22/24 Margi Riddle, COMMERCIAL LINES ACCOUNT EXECUTIVE.SEASONER HAND [address] [place] [address] [facility] 01/22/24 Appliance Technician Relationship Specialty Start Date End Date Alyson Arthur MD [address] [place], [place] 920271 PCP - General Family Medicine 11/09/12 Shlomo Alcocer MD [address] [place] [address] Surgeon Cardiac Surg 02/20/23 Angela Schmid COMMERCIAL LINES ACCOUNT EXECUTIVE.SEASONER HAND [address] [place] [address] [facility] 01/22/24 Margi Riddle COMMERCIAL LINES ACCOUNT EXECUTIVE.SEASONER HAND [address] [place], [place] [address] [facility] 01/22/24 Appliance Technician Relationship Specialty Start Date End Date Alyson Arthur MD [address] [place], [place] 467451 PCP - General Family Medicine 11/09/12 Shlomo Alcocer MD [address] [place] [address] Surgeon Cardiac Surg 02/20/23 Angela Schmid APRN.SEASONER HAND [address] [place], [place] 387[address] [facility] 01/22/24 Margi Riddle APRN.SEASONER HAND [address] [place], [place] 455[address] [facility] 01/22/24 Team Status: Active Member Role/Relationship Status [...] August 21, 2024 End: August 21, 2024 Appliance Technician Relationship Specialty Start Date End Date Alyson Arthur MD [address] [place], [place] 299321 PCP - General Family Medicine 11/09/12 Shlomo Alcocer MD [address] [place] [address] Surgeon Cardiac Surg 02/20/23 Angela Shcmid, PRICILA.SEASONER HAND [address] [place], [place] [address] Electric Truck Operator Family [facility] 01/22/24 Margi Riddle COMMERCIAL LINES ACCOUNT EXECUTIVE.SEASONER HAND [address] [place], [place] 9[address]851 Electric Truck Operator Family [facility] 01/22/24 Appliance Technician Relationship Specialty Start Date End Date Alyson Arthur MD [address] [place], [place] 965091 PCP - General Family Medicine 11/09/12 Shlomo Alcocer MD [address] [place], [place] 7031795 Surgeon Cardiac Surg 02/20/23 Angela Schmid, COMMERCIAL LINES ACCOUNT EXECUTIVE.SEASONER HAND [address] [place] [address] [facility] 01/22/24 Margi Riddle COMMERCIAL LINES ACCOUNT EXECUTIVE.SEASONER HAND [address] [place] [address] [facility] 01/22/24 Appliance Technician Relationship Specialty Start Date End Date Alyson Arthur MD [address] [place], [place] 489921 PCP - General Family Medicine 11/09/12 Shlomo Alcocer MD [address] [place] [address] Surgeon Cardiac Surg 02/20/23 Angela Schmid, COMMERCIAL LINES ACCOUNT EXECUTIVE.SEASONER HAND [address] [place] [address] [facility] 01/22/24 Margi Riddle, COMMERCIAL LINES ACCOUNT EXECUTIVE.SEASONER HAND [address] [place] [address] [facility] 01/22/24 Appliance Technician Relationship Specialty Start Date End Date Alyson Arthur MD [address] [place], [place] 296061 PCP - General Family Medicine 11/09/12 Shlomo Alcocer MD [address] [place], [place] 64247[address] Surgeon Cardiac Surg 02/20/23 Angela Schmid APRN.SEASONER HAND [address] [place] [address] [facility] 01/22/24 Margi Riddle APRN.SEASONER HAND [address] [place] [address] [facility] 01/22/24 Appliance Technician Relationship Specialty Start Date End Date Alyson Arthur MD [address] [place] [address] PCP - General Family Medicine 11/09/12 Shlomo Alcocer MD [address] [place], [place] 3681495 Surgeon Cardiac Surg 02/20/23 Angela Schmid APRN.SEASONER HAND [address] [place] [address] [facility] 01/22/24 Margi Riddle APRN.SEASONER HAND [address] [place] [address] [facility] 01/22/24 Appliance Technician Relationship Specialty Start Date End Date Alyson Arthur MD [address] [place] [address] PCP - General Family Medicine 11/09/12 Shlomo Alcocer MD [address] [place], [place] 47338[address] Surgeon Cardiac Surg 02/20/23 Angela Schmid APRN.SEASONER HAND [address] [place] [address] Electric Truck Operator [facility] 01/22/24 Margi Riddle APRN.CNP [address] [place] [id number] Electric Truck Operator [facility] 01/22/24 Goals (unrecognized section and content) Goals [...] section and content) DATE CREATED AUTHOR 08/13/2023 [facility] (ID) DATE CREATED AUTHOR AUTHOR'S ORGANIZ ATION 03/04/2024 [facility] DATE CREATED AUTHOR AUTHOR'S ORGANIZ ATION 09/13/2024 [facility] DATE CREATED AUTHOR AUTHOR'S ORGANIZ ATION 12/05/2024 [facility] DATE CREATED AUTHOR AUTHOR'S ORGANIZ ATION 12/16/2024 [facility] FOR RECORDS PERTAINING TO PATIENTS WHO ARE [...] BE BASED ON THE PRIMARY CLINICAL RECORDS. [employer] [facility] provides no warranty or guarantee of the accuracy or completeness of information in this document.
--- NOTE | 2024-12-16 01:55 | CON.PCM.CC_ITS ---
HPI Consult Data Date of Consult: 12/16/24 HPI Narrative Reason for Consultation: Post operative critical care; mechanical ventilation management HPI Narrative: KIEL CARRANZA, is a 64 M who presents post operatively from explolratory laparotomy and small bowel repair from SBO and bowel perforation. Per Surgeon, fairly uncomplicated surgery not requiring pressors, but due to history of COPD and difficult airway for intubation, decision was made not to extubate. Patient is unable to provide subjective history and chief complaint, but review of the EMR indicates He reports the pain is on the right side and he thought he had appendicitis. The pain started today after he ate. He did have some vomiting. He reports the pain is on the right side. It does radiate to the rest of his abdomen. He denies fevers or chills. EMR review indicates no IVF bolus needed/given in ED, but about 760cc intraoperatively. Carlita has less than 25cc UOP since arriving in ICU. He is currently on sedation with fent at 100 and propofol at 20, but prior to this was oriented and following instructions. He is on ACVC 16/450/5/40 with ABG 7.34/43/90. MAP has been declining since sedation was started, and he is currently on IVF at 100cc/hr. [facility] Medical History Stroke Carpal tunnel syndrome, bilateral LVH (left ventricular hypertrophy) Essential (primary) hypertension Diabetic neuropathy Degenerative disc disease Atherosclerotic heart disease of [place] coronary artery without angina pectoris Bipolar 1 disorder Bicuspid aortic valve Atrial septal defect and mitral stenosis Anxiety Hearing loss, left Chronic pain Pancreatitis GERD (gastroesophageal reflux disease) Smoker CPAP (continuous positive airway pressure) dependence Asthma Leaky heart valve MANISH (obstructive sleep apnea) Morbid obesity HLD (hyperlipidemia) Type II diabetes mellitus History of carpal tunnel syndrome COPD (chronic obstructive pulmonary disease) Home Medications ?Medication ?Instructions ?Recorded ?Last Taken ?Type atorvastatin 10 mg tablet 10 mg PO QHS cholesterol 06/21/23 History budesonide-formoterol HFA 80 2 puff inhalation BID lisa g disease 10/30/20 06/22/23 History mcg-4.5 mcg/actuation aerosol inhaler pantoprazole 40 mg tablet,delayed 40 mg PO DAILY reflu x 10/30/20 06/22/23 History release acetaminophen 500 mg tablet 1,000 mg PO TID PRN Pain 0 10/18/21 Unknown History albuterol sulfate 90 mcg/actuation 1 - 2 puff inhalati on Q4H PRN PRN 10/18/21 Unknown Rx aerosol inhaler (Ventolin HFA) Wheezing #8.5 grams insulin aspart U-100 100 unit/mL 2 unit subcut TID isreal betes 10/14/22 06/22/23 History (3 mL) subcutaneous pen (Novolog FlexPen U-100 Insulin aspart) insulin glargine 100 unit/mL (3 20 unit subcut .QAM di abetes 10/14/22 06/22/23 History mL) subcutaneous pen pregabalin 100 mg capsule (Lyrica) 100 mg PO DAILY MAJOR ROPATHY 10/14/22 06/22/23 History amlodipine 5 mg tablet 5 mg PO DAILY blood pressure 06/22/23 06/22/23 History apixaban 5 mg tablet (Eliquis) 5 mg PO BID blood thinn er 06/22/23 06/22/23 History aspirin 81 mg tablet,delayed 81 mg PO DAILY heart heal th 06/22/23 06/22/23 History release (Adult Aspirin Regimen) bumetanide 1 mg tablet 2 mg PO BID edema 06/22/23 0 06/22/23 History docusate sodium 100 mg capsule 100 mg PO DAILY PRN con stipation 06/22/23 Unknown History (Col-Rite) metoprolol tartrate 25 mg tablet 37.5 mg PO Q12H blood pressure / 06/22/23 06/22/23 History heart [id number]-[id number] 300 mcg-K 60 1 tab PO DAILY suppleme nt 06/22/23 06/22/23 History mcg-lycop 600 mcg-lutein 300 mcg tablet (Centrum Silver Men) ondansetron HCl 4 mg tablet 4 mg PO Q8H PRN PRN nausea and 06/22/23 06/22/23 History vomiting pregabalin 200 mg capsule 200 mg PO DAILY nerve pain 0 06/22/23 06/22/23 History tramadol 50 mg tablet 50 mg PO Q6H PRN pain 06/22/23 History trazodone 50 mg tablet 50 mg PO QHS sleep 06/22/23 06/21/23 History calcium carbonate 500 mg (2.5 x 200 mg calcium (500 06/24/23 Unknown Rx mg)) PO Q6H PRN PRN HEARTBURN #0 tabs azithromycin 500 mg tablet 500 mg PO DAILY 5 days #5 t abs 10/18/23 Unknown Rx hydrocodone-acetaminophen 5-325mg 1 tab PO TID PRN PRN pain 12/15/24 Unknown History 5mg-325mg Allergy/AdvReac Type Severity Reaction Status Date / Time Penicillins Allergy Hives Verified 12/15/24 17:40 fluticasone (From Flonase) AdvReac Severe Nose Bleeds Verified 12/15/24 17:40 lisinopril AdvReac Intermediate Upset Verified 12/15/24 17:40 Stomach NASAL SPRAY AdvReac Intermediate Chest Uncoded 10/09/22 14:22 tightness Family History Father Diabetes Dementia Mother CAD (coronary artery disease) CABG X4 Sister Diabetes Brother Ischemic heart disease Brother Myocardial infarction Surgical History History of back surgery Social History household members: spouse housing: house Smoking Status: Current every day smoker tobacco type: cigarettes Tobacco: How many years used: 45 alcohol intake: current alcohol intake frequency: holidays/special occasions only substance use type: does not use ROS ROS Narrative 12 or more systems could not be reviewed due to intubation, sedation, mechanical ventilation Objective Data Objective Data Vital Signs: Vital Signs Last response 3 Temperature 37.4 C H 12/16/24 01:00 Temperature Source Core 12/16/24 01:00 Pulse Rate 74 12/16/24 01:00 Respiratory Rate 18 12/16/24 01:00 Respiratory Pattern Tachypnea 12/15/24 18:35 Blood Pressure 102/43 L 12/16/24 01:00 Blood Pressure Mean 62 12/16/24 01:00 Blood Pressure Source Monitor 12/16/24 01:00 Blood Pressure Position Semi-Fowlers 12/16/24 01:00 Blood Pressure Location Right Arm 12/16/24 01:00 Baseline BP 129/88 12/16/24 00:15 Pulse Ox 97 12/16/24 01:00 Oxygen Delivery Method Mechanical Ventilator 12/16/24 01:00 Oxygen Flow Rate (L/min) 2 12/15/24 21:28 Fraction of Inspired Oxygen (FIO2) 40 12/16/24 01:00 I&O: I&O Last 24 Hours 3 12/15/24 12/15/24 12/16/24 10:59 23:59 11:59 Intake Total 100 / 100 121.11 / 121.11 Output Total 125 / 125 Balance - 121.11 / 121.11 I&O: Total Stay 3 12/15/24 17:38 thru 12/16/24 01:15 Intake Total 221.11 Output Total 125 Balance 96.11 Current Meds Ordered / Administered: Current meds ordered / Administered 3 Generic Name Dose Route Start Last Admin Trade Name Freq PRN Reason Stop Dose Admin Albuterol Sulfate 2.5 mg 12/15/24 23:37 Albuterol 2.5 Mg/3 Ml Vial.Neb. INHALATION Q2H PRN PRN Dyspnea, wheezing Budesonide 0.5 mg 12/15/24 23:45 Budesonide Respules 0.5 Mg/2 Ml Ampul.Neb. INHALATION BID.RT MAINE Chlorhexidine Gluconate 15 ml 12/16/24 10:00 Chlorhexidine 15 Ml PO BID MAINE Fentanyl Citrate 50 - 100 mcg 12/15/24 23:22 Fentanyl 100 Mcg/2 Ml Ampul IV Q2H PRN PRN Pain Score 1-10 Glucagon 1 mg 12/15/24 23:36 Glucagon 1 Mg/Ml Syringe IM X1 PRN Hypoglycemia Protocol Hydralazine HCl 10 mg 12/15/24 23:37 Hydralazine 20 Mg/Ml Vial IV Q4H PRN PRN SBP > 160 Protocol Sodium Chloride 1,000 mls @ 100 mls/hr 12/15/24 23:25 12/16/24 00:06 IV 100 mls/hr .Q10H MAINE Administration Ciprofloxacin 400 mg in 200 mls @ 200 mls/hr 12/16/24 10:00 Cipro IV Q12 MAINE Metronidazole 500 mg in 100 mls @ 100 mls/hr 12/16/24 06:00 Flagyl IV Q8 MAINE Dextrose 250 mls @ 0 mls/hr 12/15/24 23:36 Dextrose 10%-Water IV .Q0M PRN HYPOGLYCEMIA Protocol As Directed Pantoprazole Sodium 40 mg/ 100 mls @ 330 mls/hr 12/15/24 23:40 12/16/24 00:58 Sodium Chloride IV Infused Q12 MAINE Infusion Fentanyl 100 mls @ 2.5 mls/hr 12/15/24 23:40 12/16/24 01:00 CONT INF 75 mcg/hr UD MAINE 7.5 mls/hr Protocol Titration 25 MCG/HR Propofol 1,000 mg in 100 mls @ 6.948 mls/hr 12/15/24 23:40 12/16/24 01:15 Diprivan CONT INF 30 mcg/kg/min .Q12H MAINE 20.8 mls/hr Protocol Titration 10 MCG/KG/MIN Sodium Chloride 250 mls @ 15 mls/hr 12/16/24 01:04 IV .[id number] PRN Saline Flush Sodium Chloride 250 mls @ 15 mls/hr 12/16/24 01:04 IV .[id number] PRN Additional IVPB Infusion Lactated Ringer's 1,000 mls @ 999 mls/hr 12/16/24 01:45 IV 12/16/24 02:45 .Q1H1M MAINE Magnesium Sulfate 1 gm/ 102 mls @ 52 mls/hr 12/16/24 01:48 Dextrose IV 12/16/24 03:45 X1 ONE Norepinephrine Bitartrate 8 mg 250 mls @ 9.375 mls/hr 12/16/24 01:55 / Sodium Chloride CONT INF .[id number] MAINE Protocol 5 MCG/MIN Insulin Glargine 20 unit 12/16/24 10:00 Insulin Glargine-Yfgn 100 Unit/Ml Pen SC DAILY [facility] Insulin Human Lispro 0 unit 12/16/24 00:00 12/16/24 01:27 Insulin Lispro 100 Unit/Ml Insuln.Pen SC 4 u Q6 MAINE Administration Protocol Sodium Chloride 10 - 40 ml 12/15/24 23:22 12/16/24 00:06 0.9% Saline Lock 10 Ml Syringe IV 10 ml UD PRN Administration SALINE FLUSH Sodium Chloride 10 - 40 ml 12/15/24 23:22 0.9% Saline Lock 10 Ml Syringe IV UD PRN SALINE FLUSH Sodium Chloride 10 - 40 ml 12/16/24 01:04 0.9% Saline Lock 10 Ml Syringe IV UD PRN SALINE FLUSH Physical Exam Const no apparent distress General Appearance: patient mechanically ventilated HEENT normocephalic HEENT Narrative: Dry mucosa Mouth: oral and palatal mucosa normal Eyes PERRL Neck no JVD Lymph Lymphatic: no lymphadenopathy noted Chest inspection of chest normal Resp Auscultation: clear to auscultation bilaterally Cardio regular rate and regular rhythm GI soft to palpation and non-tender GI Narrative: hypoactive Extremity no clubbing, cyanosis or edema Skin no rashes or lesions noted Neuro CN's II-XII intact bilaterally Lab / Micro Data Attestation: I reviewed the patient's lab results. 12/15/24 17:53 12/15/24 17:53 Labs: Laboratory Results - last 24 hr 12/15/24 17:53: WBC 14.0 H, RBC 6.06, Hgb 18.3 H*, Hct 53.1, MCV 87.6, MCH 30.2, MCHC 34.5, RDW Std Deviation 41.0, RDW Coeff of David 12.8, Plt Count 234, MPV 12.2 H, Immature Gran % (Auto) 0.300, Neut % (Auto) 82.4 H, Lymph % (Auto) 12.0 L, [place] % (Auto) 4.6, Eos % (Auto) 0.2, Baso % (Auto) 0.5, Absolute Neuts (auto) 11.5 H, Absolute Lymphs (auto) 1.68, Nucleated RBC % 0, Sodium 136, Potassium 3.9, Chloride 97 L, Carbon Dioxide 24.9, Anion Gap 15, BUN 20 H, Creatinine 0.93, Estim Creat Clear Calc 94.11, Est GFR (MDRD) Non-Af 93, BUN/Creatinine Ratio 21.1 H, Glucose 259 H, Calcium 9.5, Total Bilirubin 0.52, AST 19, ALT 11, Alkaline Phosphatase 112, Troponin T High Sens 15, NT pro BNP II 120, Total Protein 7.1, Albumin 4.1, Globulin 2.9, Albumin/Globulin Ratio 1.4, Lipase 12 L 12/15/24 19:20: Urine Color Yellow, Urine Clarity Clear, Urine pH 6.0, Ur Specific [place] 1.020, Urine Protein 30 H, Urine Glucose (UA) Normal, Urine Ketones Negative, Urine Occult Blood 10 H, Urine Nitrite Negative, Urine Bilirubin Negative, Urine Urobilinogen 1 H, Ur Leukocyte Esterase 100 H, Urine RBC 0 SEEN, Urine WBC 0-5 SEEN, Ur Squamous Epith Cells 0 SEEN, Urine Bacteria 0 SEEN, Urine Mucus 1+ 12/15/24 20:02: Phosphorus 3.1, Magnesium 1.5, Total Creatine Kinase 36, Troponin T Hi Sens 2 Hr 16, Triglycerides 221 H 12/15/24 20:39: Blood Type O POSITIVE, Antibody Screen NEGATIVE 12/16/24 01:21: POC Glucose 292 H Rhythm Strip Rhythm Strip: Sinus Rhythm Rate: 76 Ectopy: None Imaging Radiology Impression Abdomen/Pelvis CT 12/15/24 18:22 IMPRESSION: 1. Pneumoperitoneum, concerning for hollow viscus perforation, possibly of the stomach or transverse colon though source is not definitively identified. 2. Small volume of free fluid in the pelvis and right lower abdominal quadrant. 3. Fat density lesion near the medial aspect of the right gluteal musculature may represent a lipoma. Correlate with exam findings. Red Alert: Pneumoperitoneum The critical findings in the findings and impression above were relayed directly by me by telephone to Josué Villalobos on 12/15/2024 at 7:49 pm with readback verification. Reading Location: [id number] Chest X-Ray 12/15/24 19:34 IMPRESSION: 1. Pneumoperitoneum, better evaluated on concurrent CT abdomen and pelvis. 2. No acute cardiopulmonary abnormality. Reading Location: [id number] Chest X-Ray 12/15/24 23:55 IMPRESSION: As above. Reading Location: [id number] Assessment and Plan . Assessment and plan: ICU Problem List: Atelectasis, hypoxemic respiratory failure Difficult airway anatomy Morbid obesity Mechanical ventilation SBO Bowel perforation Sepsis and hypotension Anuric/Oliguric renal failure Hypovolemia Plan: Target 3L IVF fluid resuscitation to assess fluid responsiveness Adding NE drip to MAR in case Repeat LA level Continue IVF at 100cc/hr If NE less than 5mcg/min by 0700, can trial SAT Agree with cipro/flagyl for GI coverage Blood cx x2 PPI ppx Defer hep/lovenox 2/2 post operative status for now SCDs Defer TFs Zazueta Defer CVC for now Jon Villalpando MD PCC[facility] Critical Care Time: 60 min The entirety of this encounter was done via Telemedicine
[2024-12-16] MEDS: Lactated Ringers 1,000 ML 999 ML IV ×3 (02:03→05:06)
[2024-12-16] MEDS: Magnesium Sulfate 1 GM in Dextrose 5%-Water (100mL Bag) 100 ML IV (02:10)
[2024-12-16] MEDS: CHLORHEXIDINE GLUC 2% CLOTH 1 EACH TOWELETTE TOPICAL (03:25)
[2024-12-16 03:42] LABS: Hematocrit 42.6 % (40-54); Hemoglobin 14.5 g/dL (13.0-16.5); Immature Granulocytes Count 0.030 X10^3/uL (0.0-0.0); Mean Corp Hgb Conc 34.0 g/dL (32-36); Mean Corpuscular Volume 88.2 fL (80-94); Mean Platelet Vol. 11.8 fl (6.2-12.0); NRBC Flagged by Analyzer 0 % (0-5); POSITIVE MORPHOLOGY YES; Platelet Count 159 K/mm3 (150-450); RBC Distribution Width CV 12.9 % (11.6-14.6); RBC Distribution Width SD 41.6 fl (35.1-43.9); Red Blood Count 4.83 M/mm3 (4.6-6.2); White Blood Count 13.2 K/mm3 (4.4-11.0)
[2024-12-16 03:43] LABS: Differential Indicated SCAN CRITERIA MET
[2024-12-16 03:56] LABS: AST(SGOT) 15 U/L (<=37); Alanine Aminotransfer ALT/SGPT 7 U/L (<=46); Albumin, Serum 3.0 g/dL (3.4-4.8); Alkaline Phosphatase 69 U/L (40-129); Anion Gap 12 (5-15); BUN 20 mg/dL (4-19); BUN/Creat Ratio 19.8 RATIO (10-20); Calcium,Total 8.1 mg/dL (7.6-11.0); Carbon Dioxide 20.9 mmol/L (21.0-32.0); Chloride 100 mmol/L (98-108); Estimated Creatinine Clearance 88.17 ml/min (50-250); Globulin 2.0 g/dL (2.2-4.2); Glucose 361 mg/dL (70-99); Potassium 4.5 mmol/L (3.3-5.1)
[2024-12-16 04:19] LABS: Dohle Bodies 1+; Vacuolated Cells 1+
[2024-12-16 04:20] LABS: Red Cell Morphology NORM C+C NORMAL (NORM C&C)
[2024-12-16 04:46] LABS: Base Excess -2 mmol/L (-2 to +2); FI02 40.0; PEEP 5; PO2 90 mmHG (75-100); RR 16; SITE L Radial; SO2 96 % (94-98)
[2024-12-16 05:02] LABS: Base Excess -3 mmol/L (-2 to +2); FI02 40.0; PEEP 5; PO2 71 mmHG (75-100); RR 16; SITE L Radial; SO2 93 % (94-98)
[2024-12-16] MEDS: metroNIDAZOLE 500 MG/100 ML BAG 100 MG IV ×3 (05:07→21:09)
[2024-12-16] MEDS: TITRATION PARAMETER CHANGE 1 EACH IV (05:08)
[2024-12-16 06:03] LABS: Reflex Lactate? Y
[2024-12-16] MEDS: Budesonide Respules 0.5 MG/2 ML AMPUL.NEB. INHALATION ×2 (07:07→19:18)
[2024-12-16] MEDS: Norepinephrine 8 MG in 0.9% Normal Saline (250mL Bag) 242 ML 9.4 MG CONT INF (07:15)
--- NOTE | 2024-12-16 07:36 | PCM.PN.BLA ---
Progress Note The patient is a 64-year-old male who initially presented to the emergency department with abdominal pain with CT imaging demonstrated pneumoperitoneum concerning for hollow viscus perforation. He was seen in consultation urgently by general surgery and taken to the OR last night where he underwent exploratory laparoscopy converted to open with resection of small bowel and anastomosis secondary to a perforated small bowel segment. Postoperatively, the patient was left intubated due to his reported history of COPD. At the present time, the patient was noted to be overall net +2.7 L for the hospitalization. He remains on continuous IV fluids along with ciprofloxacin and Flagyl. The patient is currently sedated on a combination of propofol and fentanyl. Low-dose Levophed was initiated this morning to maintain hemodynamic stability. White blood cell count is elevated at 13,000. Hemoglobin and platelet count are stable. Arterial blood gas was notable for a pH of 7.34 with a pCO2 of 42 and pO2 of 71. Chemistry profile was unremarkable. Lactate was elevated at 5.2. Chest x-ray performed last evening demonstrated an appropriately placed endotracheal tube without any acute cardiopulmonary process. Sputum and blood cultures are currently pending. In light of the patient's elevated lactate level, we will plan to continue invasive mechanical ventilatory support for at least the next 24 hours. Repeat lactate is currently pending. Appropriate ICU prophylaxis will be continued.
[2024-12-16] MEDS: Propofol 10MG/Ml 1,000 MG/100 ML Bottle 6.8 MG CONT INF ×3 (07:48→23:31)
--- NOTE | 2024-12-16 08:11 | PN.SURG_ITS ---
Subjective Subjective Patient evaluated resting comfortably intubated in bed. His urine output has been stable. He was noted to have 400 output from NG tube overnight. No bowel function. Lactic acid increased. Objective Data Objective Data Vital Signs: Vital Signs Temp Pulse Resp BP Pulse Ox O2 Del Method O2 Flow Rate 99.9 F H 69 17 123/51 H 97 Mechanical Ventilator 2 12/16/24 07:45 12/16/24 07:45 12/16/24 07:45 12/16/24 07:45 12/16/24 07:45 12/16/24 07:45 12/15/24 21:28 FiO2 40 12/16/24 07:45 Oxygen Flow Rate (L/min) 2 Oxygen Delivery Method Mechanical Ventilator Weight: 249 lb 9.012 oz Body Mass Index (BMI) 42.6 Intake & Output: Intake and Output for Last 24 Hours 12/14/24 12/15/24 12/16/24 23:59 22:59 23:59 Intake Total 100 / 100 3443.73 / 3443.73 Output Total 125 / 125 650 / 650 Balance - 2793.73 / 2793.73 Lab / Micro Data 12/16/24 03:23 12/16/24 03:23 Labs: Laboratory Results - last 24 hr 12/15/24 17:53: WBC 14.0 H, RBC 6.06, Hgb 18.3 H*, Hct 53.1, MCV 87.6, MCH 30.2, MCHC 34.5, RDW Std Deviation 41.0, RDW Coeff of David 12.8, Plt Count 234, MPV 12.2 H, Immature Gran % (Auto) 0.300, Neut % (Auto) 82.4 H, Lymph % (Auto) 12.0 L, [place] % (Auto) 4.6, Eos % (Auto) 0.2, Baso % (Auto) 0.5, Absolute Neuts (auto) 11.5 H, Absolute Lymphs (auto) 1.68, Nucleated RBC % 0, Sodium 136, Potassium 3.9, Chloride 97 L, Carbon Dioxide 24.9, Anion Gap 15, BUN 20 H, Creatinine 0.93, Estim Creat Clear Calc 94.11, Est GFR (MDRD) Non-Af 93, BUN/Creatinine Ratio 21.1 H, Glucose 259 H, Calcium 9.5, Total Bilirubin 0.52, AST 19, ALT 11, Alkaline Phosphatase 112, Troponin T High Sens 15, NT pro BNP II 120, Total Protein 7.1, Albumin 4.1, Globulin 2.9, Albumin/Globulin Ratio 1.4, Lipase 12 L 12/15/24 19:20: Urine Color Yellow, Urine Clarity Clear, Urine pH 6.0, Ur Specific [place] 1.020, Urine Protein 30 H, Urine Glucose (UA) Normal, Urine Ketones Negative, Urine Occult Blood 10 H, Urine Nitrite Negative, Urine Bilirubin Negative, Urine Urobilinogen 1 H, Ur Leukocyte Esterase 100 H, Urine RBC 0 SEEN, Urine WBC 0-5 SEEN, Ur Squamous Epith Cells 0 SEEN, Urine Bacteria 0 SEEN, Urine Mucus 1+ 12/15/24 20:02: Phosphorus 3.1, Magnesium 1.5, Total Creatine Kinase 36, Troponin T Hi Sens 2 Hr 16, Triglycerides 221 H 12/15/24 20:39: Blood Type O POSITIVE, Antibody Screen NEGATIVE 12/16/24 01:21: POC Glucose 292 H 12/16/24 02:00: Lactic Acid 3.4 H* 12/16/24 03:23: WBC 13.2 H, RBC 4.83, Hgb 14.5, Hct 42.6, MCV 88.2, MCH 30.0, MCHC 34.0, RDW Std Deviation 41.6, RDW Coeff of David 12.9, Plt Count 159, MPV 11.8, Immature Gran % (Auto) 0.200, Neut % (Auto) 88.4 H, Lymph % (Auto) 4.7 L, [place] % (Auto) 5.6, Eos % (Auto) 0.8, Baso % (Auto) 0.3, Absolute Neuts (auto) 11.7 H, Absolute Lymphs (auto) 0.62 L, Nucleated RBC % 0, Toxic Vacuolation 1+, Dohle Bodies 1+, Platelet Estimate ADEQUATE, RBC Morphology NORM C+C, Sodium 133, Potassium 4.5, Chloride 100, Carbon Dioxide 20.9 L, Anion Gap 12, BUN 20 H, Creatinine 0.98, Estim Creat Clear Calc 88.17, Est GFR (MDRD) Non-Af 86, BUN/Creatinine Ratio 19.8, Glucose 361 H, Calcium 8.1, Total Bilirubin 0.70, AST 15, ALT 7, Alkaline Phosphatase 69, Total Protein 5.0 L, Albumin 3.0 L, Globulin 2.0 L, Albumin/Globulin Ratio 1.5 12/16/24 05:08: POC Glucose 315 H 12/16/24 06:11: Lactic Acid 5.2 H* ABG Data ABG results: ABG 12/16/24 12/16/24 01:15 04:58 Specimen Type ART ART Sample Site L Radial L Radial pH 7.35 7.34 L Bicarbonate Actual 23.4 23.1 Total CO2 25 24 Base Excess -2 -3 L O2 Saturation 96 93 L O2 % 40.0 40.0 ABG pCO2 42.8 42.4 ABG pO2 90 71 L Trevon Test N/A N/A Respiration Rate 16 16 O2 Delivery Device Adult Vent Adult Vent Vent Mode AC AC Tidal Volume 450.0 450.0 POC PEEP 5 5 Radiography Diagnostic Testing: Radiology Impression Abdomen/Pelvis CT 12/15/24 18:22 IMPRESSION: 1. Pneumoperitoneum, concerning for hollow viscus perforation, possibly of the stomach or transverse colon though source is not definitively identified. 2. Small volume of free fluid in the pelvis and right lower abdominal quadrant. 3. Fat density lesion near the medial aspect of the right gluteal musculature may represent a lipoma. Correlate with exam findings. Red Alert: Pneumoperitoneum The critical findings in the findings and impression above were relayed directly by me by telephone to Josué Villalobos on 12/15/2024 at 7:49 pm with readback verification. Reading Location: [id number] Chest X-Ray 12/15/24 19:34 IMPRESSION: 1. Pneumoperitoneum, better evaluated on concurrent CT abdomen and pelvis. 2. No acute cardiopulmonary abnormality. Reading Location: [facility] Chest X-Ray 12/15/24 23:55 IMPRESSION: As above. Reading Location: [id number] Rhythm Strip Rhythm Strip: Sinus Rhythm Rate: 76 Ectopy: None Physical Exam GI GI Narrative: Abdomen- soft, tender. Hypoactive bowel sounds. Assessment & Plan Assessment/Plan (1) Perforated abdominal viscus: (2) Abdominal pain: PLAN: Plan I am following this patient in conjunction with Dr. Stevenson. He has independently evaluated this patient. Labs reviewed. WBC decreasing. Lactic acid increasing. Will await third lactic acid in 3 hours Unknown cause as to why lactic acid is increasing. No ischemia was found during the procedure. There was purulent fluid noted, however this was washed out during surgery. Blood cultures still pending Appreciate Intensivists care and recommendations We will continue to monitor this patient No plans for return to surgery or repeat imaging at this moment Charges/Coding Visit Charges Inpatient E&M: 638[address] [facility] Hosp L1 (no charge; post-op)
--- NOTE | 2024-12-16 08:40 | RAD_ITS ---
PROCEDURE: CHEST 1 VIEW (PORTABLE) 12/16/2024 REASON FOR EXAM: RESPIRATORY FAILURE TECHNIQUE: Frontal view of the chest. COMPARISON: December 15, 2024 FINDINGS: Hardware: Endotracheal tube is in satisfactory position above the fely. Nasogastric tube is in place and follows the course of the esophagus and crosses the diaphragm. The tip is seen at the body of the stomach in the side hole is just below the GE junction. Heart: Enlarged status post median sternotomy Lungs: Lungs are hypoventilated. Perihilar congestion and dependent subsegmental atelectasis is seen. Bones: Degenerative changes are identified within the thoracic spine. RAD/Chest 1 View (Portable) IMPRESSION: Satisfactory positioning of the endotracheal tube. Nasogastric tube within the stomach. Consider advancing the nasogastric tube 4-6 cm for more optimal positioning. Hypoventilation, central congestion, subsegmental atelectasis. Reading Location: [id number]
[2024-12-16] MEDS: fentaNYL drip 100 ML 7.5 MCG CONT INF ×2 (09:30→22:50)
[2024-12-16] MEDS: Chlorhexidine 15 ML PO ×2 (10:50→21:08)
[2024-12-16] MEDS: Insulin Glargine-YFGN 100 UNIT/ML Pen 20 UNIT SC (11:17)
--- NOTE | 2024-12-16 11:17 | PCM.PN.HOSP ---
Subjective Subjective Still intubated. Objective Data Objective Data Vital Signs: Vital Signs Temp Pulse Resp BP Pulse Ox O2 Del Method O2 Flow Rate 38.1 C H 74 17 125/49 H 96 Mechanical Ventilator 2 12/16/24 11:15 12/16/24 11:15 12/16/24 11:15 12/16/24 11:15 12/16/24 11:15 12/16/24 11:15 12/15/24 21:28 FiO2 40 12/16/24 11:00 Oxygen Flow Rate (L/min) 2 Oxygen Delivery Method Mechanical Ventilator Weight: 113.2 kg Body Mass Index (BMI) 42.6 Intake & Output: Intake and Output for Last 24 Hours 12/14/24 12/15/24 12/16/24 23:59 22:59 23:59 Intake Total 100 / 100 4595.89 / 4595.89 Output Total 125 / 125 960 / 960 Balance - 3635.89 / 3635.89 Lab / Micro Data 12/16/24 03:23 12/16/24 03:23 Labs: Laboratory Results - last 24 hr 12/15/24 17:53: WBC 14.0 H, RBC 6.06, Hgb 18.3 H*, Hct 53.1, MCV 87.6, MCH 30.2, MCHC 34.5, RDW Std Deviation 41.0, RDW Coeff of David 12.8, Plt Count 234, MPV 12.2 H, Immature Gran % (Auto) 0.300, Neut % (Auto) 82.4 H, Lymph % (Auto) 12.0 L, Pershing % (Auto) 4.6, Eos % (Auto) 0.2, Baso % (Auto) 0.5, Absolute Neuts (auto) 11.5 H, Absolute Lymphs (auto) 1.68, Nucleated RBC % 0, Sodium 136, Potassium 3.9, Chloride 97 L, Carbon Dioxide 24.9, Anion Gap 15, BUN 20 H, Creatinine 0.93, Estim Creat Clear Calc 94.11, Est GFR (MDRD) Non-Af 93, BUN/Creatinine Ratio 21.1 H, Glucose 259 H, Calcium 9.5, Total Bilirubin 0.52, AST 19, ALT 11, Alkaline Phosphatase 112, Troponin T High Sens 15, NT pro BNP II 120, Total Protein 7.1, Albumin 4.1, Globulin 2.9, Albumin/Globulin Ratio 1.4, Lipase 12 L 12/15/24 19:20: Urine Color Yellow, Urine Clarity Clear, Urine pH 6.0, Ur Specific Cornelia 1.020, Urine Protein 30 H, Urine Glucose (UA) Normal, Urine Ketones Negative, Urine Occult Blood 10 H, Urine Nitrite Negative, Urine Bilirubin Negative, Urine Urobilinogen 1 H, Ur Leukocyte Esterase 100 H, Urine RBC 0 SEEN, Urine WBC 0-5 SEEN, Ur Squamous Epith Cells 0 SEEN, Urine Bacteria 0 SEEN, Urine Mucus 1+ 12/15/24 20:02: Phosphorus 3.1, Magnesium 1.5, Total Creatine Kinase 36, Troponin T Hi Sens 2 Hr 16, Triglycerides 221 H 12/15/24 20:39: Blood Type O POSITIVE, Antibody Screen NEGATIVE 12/16/24 01:21: POC Glucose 292 H 12/16/24 02:00: Lactic Acid 3.4 H* 12/16/24 03:23: WBC 13.2 H, RBC 4.83, Hgb 14.5, Hct 42.6, MCV 88.2, MCH 30.0, MCHC 34.0, RDW Std Deviation 41.6, RDW Coeff of David 12.9, Plt Count 159, MPV 11.8, Immature Gran % (Auto) 0.200, Neut % (Auto) 88.4 H, Lymph % (Auto) 4.7 L, Pershing % (Auto) 5.6, Eos % (Auto) 0.8, Baso % (Auto) 0.3, Absolute Neuts (auto) 11.7 H, Absolute Lymphs (auto) 0.62 L, Nucleated RBC % 0, Toxic Vacuolation 1+, Dohle Bodies 1+, Platelet Estimate ADEQUATE, RBC Morphology NORM C+C, Sodium 133, Potassium 4.5, Chloride 100, Carbon Dioxide 20.9 L, Anion Gap 12, BUN 20 H, Creatinine 0.98, Estim Creat Clear Calc 88.17, Est GFR (MDRD) Non-Af 86, BUN/Creatinine Ratio 19.8, Glucose 361 H, Calcium 8.1, Total Bilirubin 0.70, AST 15, ALT 7, Alkaline Phosphatase 69, Total Protein 5.0 L, Albumin 3.0 L, Globulin 2.0 L, Albumin/Globulin Ratio 1.5 12/16/24 05:08: POC Glucose 315 H 12/16/24 06:11: Lactic Acid 5.2 H* 12/16/24 09:20: Lactic Acid 3.4 H* ABG Data ABG results: ABG 12/16/24 12/16/24 01:15 04:58 Specimen Type ART ART Sample Site L Radial L Radial pH 7.35 7.34 L Bicarbonate Actual 23.4 23.1 Total CO2 25 24 Base Excess -2 -3 L O2 Saturation 96 93 L O2 % 40.0 40.0 ABG pCO2 42.8 42.4 ABG pO2 90 71 L Trevon Test N/A N/A Respiration Rate 16 16 O2 Delivery Device Adult Vent Adult Vent Vent Mode AC AC Tidal Volume 450.0 450.0 POC PEEP 5 5 Radiography Diagnostic Testing: Radiology Impression Abdomen/Pelvis CT 12/15/24 18:22 IMPRESSION: 1. Pneumoperitoneum, concerning for hollow viscus perforation, possibly of the stomach or transverse colon though source is not definitively identified. 2. Small volume of free fluid in the pelvis and right lower abdominal quadrant. 3. Fat density lesion near the medial aspect of the right gluteal musculature may represent a lipoma. Correlate with exam findings. Red Alert: Pneumoperitoneum The critical findings in the findings and impression above were relayed directly by me by telephone to Josué Villalobos on 12/15/2024 at 7:49 pm with readback verification. Reading Location: [id number] Chest X-Ray 12/15/24 19:34 IMPRESSION: 1. Pneumoperitoneum, better evaluated on concurrent CT abdomen and pelvis. 2. No acute cardiopulmonary abnormality. Reading Location: [facility] Chest X-Ray 12/15/24 23:55 IMPRESSION: As above. Reading Location: [id number] Chest X-Ray 12/16/24 08:40 IMPRESSION: Satisfactory positioning of the endotracheal tube. Nasogastric tube within the stomach. Consider advancing the nasogastric tube 4-6 cm for more optimal positioning. Hypoventilation, central congestion, subsegmental atelectasis. Reading Location: [id number] Rhythm Strip Rhythm Strip: Sinus Rhythm Rate: 76 Ectopy: None Physical Exam Const Constitutional Narrative: intubated. sedated. Resp normal respiratory effort and no retractions Resp Narrative: coarse breath sounds bilaterally. GI GI Narrative: distended. hypoactive bowel sounds. bandaged midline abdominal incision (did not remove) Assessment & Plan Assessment/Plan (1) Perforated abdominal viscus: PLAN: s/p ex-lap w resection with anastamosis. mgmt per general surgery. OG tube in place. abx w cipro and metronidazole PLAN: Plan Septic shock: on norepinephrine. 2/2 perforated viscous. Acute respiratory failure: vent mgmt per CCM. HTN: amlodipine held given shock. VTE prophylaxis: per primary service. While patient is ICU with CCM consulted, the Hospitalist service will follow peripherally. Charges/Coding Visit Charges Inpatient E&M: 80079 Subs Hosp L2
[2024-12-16 13:26] LABS: Reflex Lactate? Y
[2024-12-17] VITALS (36 sets, daily range): BP systolic 91–157; BP diastolic 46–77; PULSE 78–123; RESP 12–29; TEMP 37.8–38.2; O2SAT 88–100; BMI 47.0
[2024-12-17 05:17] LABS: Hematocrit 40.6 % (40-54); Hemoglobin 13.7 g/dL (13.0-16.5); Immature Granulocytes Count 0.050 X10^3/uL (0.0-0.0); Mean Corp Hgb Conc 33.7 g/dL (32-36); Mean Corpuscular Volume 88.8 fL (80-94); Mean Platelet Vol. 12.6 fl (6.2-12.0); NRBC Flagged by Analyzer 0 % (0-5); Platelet Count 146 K/mm3 (150-450); RBC Distribution Width CV 13.1 % (11.6-14.6); RBC Distribution Width SD 42.4 fl (35.1-43.9); Red Blood Count 4.57 M/mm3 (4.6-6.2); White Blood Count 12.9 K/mm3 (4.4-11.0)
[2024-12-17 05:41] LABS: AST(SGOT) 12 U/L (<=37); Alanine Aminotransfer ALT/SGPT 8 U/L (<=46); Albumin, Serum 2.9 g/dL (3.4-4.8); Alkaline Phosphatase 72 U/L (40-129); Anion Gap 10 (5-15); BUN 15 mg/dL (4-19); BUN/Creat Ratio 15.4 RATIO (10-20); Calcium,Total 8.2 mg/dL (7.6-11.0); Carbon Dioxide 22.8 mmol/L (21.0-32.0); Chloride 102 mmol/L (98-108); Estimated Creatinine Clearance 93.98 ml/min (50-250); Globulin 2.4 g/dL (2.2-4.2); Glucose 274 mg/dL (70-99); Potassium 4.0 mmol/L (3.3-5.1)
[2024-12-17] MEDS: 0.9% Normal Saline (1000mL) 1,000 ML 100 ML IV (05:41)
[2024-12-17] MEDS: metroNIDAZOLE 500 MG/100 ML BAG 100 MG IV ×3 (05:47→21:02)
[2024-12-17] MEDS: Budesonide Respules 0.5 MG/2 ML AMPUL.NEB. INHALATION ×2 (06:57→19:10)
--- NOTE | 2024-12-17 07:20 | PN.SURG_ITS ---
Subjective Subjective Patient is alert and intubated. He reports he is in no pain. Objective Data Objective Data Vital Signs: Vital Signs Temp Pulse Resp BP Pulse Ox O2 Del Method O2 Flow Rate 100.7 F H 120 H 22 H 138/66 H 94 Mechanical Ventilator 2 12/17/24 06:00 12/17/24 07:00 12/17/24 07:00 12/17/24 07:00 12/17/24 07:00 12/17/24 07:00 12/15/24 21:28 FiO2 35 12/17/24 07:00 Oxygen Flow Rate (L/min) 2 Oxygen Delivery Method Mechanical Ventilator Weight: 274 lb 0.553 oz Body Mass Index (BMI) 47.0 Intake & Output: Intake and Output for Last 24 Hours 12/15/24 12/16/24 12/17/24 22:59 23:59 23:59 Intake Total 100 / 100 6440.73 / 6451.52 1189.92 / 1189.92 Output Total 125 / 125 2380 / 2630 950 / 950 Balance - 4060.73 / 3821.52 239.92 / 239.92 Lab / Micro Data 12/17/24 04:28 12/17/24 04:28 Labs: Laboratory Results - last 24 hr 12/16/24 09:20: Lactic Acid 3.4 H* 12/16/24 11:05: POC Glucose 290 H 12/16/24 13:50: Lactic Acid 2.6 H* 12/16/24 17:36: POC Glucose 230 H 12/17/24 00:47: POC Glucose 232 H 12/17/24 04:28: WBC 12.9 H, RBC 4.57 L, Hgb 13.7, Hct 40.6, MCV 88.8, MCH 30.0, MCHC 33.7, RDW Std Deviation 42.4, RDW Coeff of David 13.1, Plt Count 146 L, MPV 12.6 H, Immature Gran % (Auto) 0.400, Neut % (Auto) 86.2 H, Lymph % (Auto) 6.2 L , Cotton % (Auto) 7.0, Eos % (Auto) 0.0, Baso % (Auto) 0.2, Absolute Neuts (auto) 11.1 H, Absolute Lymphs (auto) 0.80 L, Nucleated RBC % 0, Sodium 135, Potassium 4.0, Chloride 102, Carbon Dioxide 22.8, Anion Gap 10, BUN 15, Creatinine 0.97, Estim Creat Clear Calc 93.98, Est GFR (MDRD) Non-Af 87, BUN/Creatinine Ratio 15.4, Glucose 274 H, Calcium 8.2, Total Bilirubin 0.56, AST 12, ALT 8, Alkaline Phosphatase 72, Total Protein 5.2 L, Albumin 2.9 L, Globulin 2.4, Albumin/Globulin Ratio 1.2 Micro: Microbiology 12/16/24 02:51 Sputum, Induced/Lukens Gram Stain - Final Radiography Diagnostic Testing: Radiology Impression Chest X-Ray 12/16/24 08:40 IMPRESSION: Satisfactory positioning of the endotracheal tube. Nasogastric tube within the stomach. Consider advancing the nasogastric tube 4-6 cm for more optimal positioning. Hypoventilation, central congestion, subsegmental atelectasis. Reading Location: [facility] Rhythm Strip Rhythm Strip: Sinus Rhythm Rate: 76 Ectopy: None Physical Exam Const oriented x3 and no apparent distress Cardio regular rhythm Rate: tachycardic GI soft to palpation Assessment & Plan Assessment/Plan (1) Perforated abdominal viscus: PLAN: Patient is postoperative day 2 from small bowel resection for small bowel perforation. The patient is on a sedation holiday and reports no pain. Hopeful for extubation this morning. Continue NG until patient has bowel function. Continue antibiotics until white count normalizes. Await bowel function. I will start Lovenox. Raj Stevenson MD Pager: [facility] [address] [place] [address], [address] [place] [address] Office:
--- NOTE | 2024-12-17 07:32 | PCM.PN.INT ---
Assessment & Plan Assessment/Plan (1) Perforated abdominal viscus: PLAN: Plan RECOMMENDATIONS: 1. Continue assist-control mode of mechanical ventilation. Wean FiO2 and PEEP to maintain saturations at or above 90%. 2. Transition from propofol to Precedex and continue fentanyl for pain control. 3. Continue antimicrobials as ordered. 4. Continue bronchodilators. 5. Continue PPI therapy. Agree with initiation of pharmacologic DVT prophylaxis. 6. Reattempt spontaneous awakening and breathing trial tomorrow morning. IMPRESSIONS: 1. Postoperative respiratory failure The patient initially presented to the emergency department with abdominal pain with CT imaging demonstrated pneumoperitoneum concerning for hollow viscus perforation. He was seen in consultation urgently by general surgery and taken to the OR last night where he underwent exploratory laparoscopy converted to open with resection of small bowel and anastomosis secondary to a perforated small bowel segment. Postoperatively, the patient was left intubated due to his reported history of COPD. The patient failed his spontaneous breathing trial this morning secondary to tachypnea, tachycardia and increased work of breathing. Will plan to transition him to Precedex from propofol and continue fentanyl for pain control. The patient will be continued on antimicrobials and bronchodilators. Continuous IV fluids will be discontinued. Plan to repeat spontaneous awakening and breathing trial again tomorrow morning. 2. Small bowel perforation, now postop day #2 status post small bowel resection Continue routine postoperative care per general surgery recommendations. 3. Morbid obesity/questionable history of COPD/hypertension/hyperlipidemia/diabetes mellitus/GERD/neuropathy Complicates care, management, recovery and prognosis. Continue supportive care as noted above. TIME: 35 minutes of critical care time, independent of procedures, was spent addressing the patient's postoperative respiratory failure, small bowel perforation, review of all data and collaboration with the care team. Subjective Subjective The patient was seen and examined at the bedside this morning. Events from the last 24 hours have been reviewed. The patient currently has a low-grade fever but remains otherwise hemodynamically stable on assist-control mode mechanical ventilation with an FiO2 requirement of 35% and PEEP of 5. The patient was weaned off of Levophed completely yesterday. He is currently documented to be overall net +4.1 L for the hospitalization. White blood cell count is stable around 13,000. Hemoglobin and platelet count are stable. Chemistry profile was unremarkable. Although the patient did relatively well with his spontaneous awakening trial, he subsequently failed a spontaneous breathing trial secondary to increasing tachycardia, tachypnea and work of breathing. Objective Data Objective Data The patient's most recent lab work, culture data and imaging studies have all been personally reviewed. Vital Signs: Vital Signs Temp Pulse Resp BP Pulse Ox O2 Del Method O2 Flow Rate 100.7 F H 120 H 22 H 138/66 H 94 Mechanical Ventilator 2 12/17/24 06:00 12/17/24 07:00 12/17/24 07:00 12/17/24 07:00 12/17/24 07:00 12/17/24 07:00 12/15/24 21:28 FiO2 35 12/17/24 07:00 Oxygen Flow Rate (L/min) 2 Oxygen Delivery Method Mechanical Ventilator Weight: 274 lb 0.553 oz Body Mass Index (BMI) 47.0 Intake & Output: Intake and Output for Last 24 Hours 12/15/24 12/16/24 12/17/24 22:59 23:59 23:59 Intake Total 100 / 100 6440.73 / 6451.52 1189.92 / 1189.92 Output Total 125 / 125 2380 / 2630 950 / 950 Balance - 4060.73 / 3821.52 239.92 / 239.92 Lab / Micro Data Attestation: I reviewed the patient's lab results. 12/17/24 04:28 12/17/24 04:28 Labs: Laboratory Results - last 24 hr 12/16/24 09:20: Lactic Acid 3.4 H* 12/16/24 11:05: POC Glucose 290 H 12/16/24 13:50: Lactic Acid 2.6 H* 12/16/24 17:36: POC Glucose 230 H 12/17/24 00:47: POC Glucose 232 H 12/17/24 04:28: WBC 12.9 H, RBC 4.57 L, Hgb 13.7, Hct 40.6, MCV 88.8, MCH 30.0, MCHC 33.7, RDW Std Deviation 42.4, RDW Coeff of David 13.1, Plt Count 146 L, MPV 12.6 H, Immature Gran % (Auto) 0.400, Neut % (Auto) 86.2 H, Lymph % (Auto) 6.2 L, Blanco % (Auto) 7.0, Eos % (Auto) 0.0, Baso % (Auto) 0.2, Absolute Neuts (auto) 11.1 H, Absolute Lymphs (auto) 0.80 L, Nucleated RBC % 0, Sodium 135, Potassium 4.0, Chloride 102, Carbon Dioxide 22.8, Anion Gap 10, BUN 15, Creatinine 0.97, Estim Creat Clear Calc 93.98, Est GFR (MDRD) Non-Af 87, BUN/Creatinine Ratio 15.4, Glucose 274 H, Calcium 8.2, Total Bilirubin 0.56, AST 12, ALT 8, Alkaline Phosphatase 72, Total Protein 5.2 L, Albumin 2.9 L, Globulin 2.4, Albumin/Globulin Ratio 1.2 Micro: Microbiology 12/16/24 02:51 Sputum, Induced/Lukens Gram Stain - Final Radiography Diagnostic Testing: Radiology Impression Chest X-Ray 12/16/24 08:40 IMPRESSION: Satisfactory positioning of the endotracheal tube. Nasogastric tube within the stomach. Consider advancing the nasogastric tube 4-6 cm for more optimal positioning. Hypoventilation, central congestion, subsegmental atelectasis. Reading Location: [id number] Rhythm Strip Rhythm Strip: Sinus Rhythm Rate: 76 Ectopy: None Physical Exam Narrative Intubated, sedated and mechanically ventilated. No ventilator dyssynchrony noted. HEENT normocephalic and head/scalp atraumatic Mouth: endotracheal tube in place Eyes EOMs intact bilaterally, conjunctivae normal and no scleral icterus Neck supple General: trachea midline Chest inspection of chest normal Resp Effort and Inspection: tachypneic Auscultation: diminished lung sounds Cardio S1 normal heart sound and S2 normal heart sound Rate: tachycardic GI soft to palpation GI Narrative: Hypoactive bowel sounds Extremity no clubbing, cyanosis or edema Skin no rashes or lesions noted Neuro Sensorium / Orientation: sedated on vent Charges/Coding Procedures Hospitalists Procedures: 08131 Critical Care 1st Hr
[2024-12-17] MEDS: dexMEDEtomidine 400 MCG in 0.9% Normal Saline (100mL Bag) 96 ML 15.5 MCG CONT INF ×2 (08:58→20:00)
[2024-12-17] MEDS: Pantoprazole Sodium 40 MG in 0.9% Normal Saline (100mL MB+) 100 ML 330 MG IV ×2 (09:28→23:27)
[2024-12-17] MEDS: Chlorhexidine 15 ML PO ×2 (09:32→19:51)
[2024-12-17] MEDS: Insulin Glargine-YFGN 100 UNIT/ML Pen 30 UNIT SC (09:58)
--- NOTE | 2024-12-17 10:25 | CASEMGMT ---
Addendum entered by Trell Garcia 12/17/24 11:10: Fide Lopez returns call and confirms pt is active with [employer], Medical alert, and moms meals. The requests [facility] staff to fax DC Summary to [phone] once the pt is discharged. Original Note: RN CM Assessment Face to Face with patient for initial transition planning/care coordination assessment. Pt is currently sedated and intubated and is unable to answer this RN CM's questions for assessment. There is no family at the bedside. TC to pt's NOK, , Shweta. Shweta is with the daughter, Alicia, on speaker phone who are agreeable to helping. Care providers, pharmacy, and demographics verified. Admitting dx: Perforated Bowel LACE Strata: 3 PCP: Juan Miguel Russell Specialists: History with a supply chain specialist at [facility] but unsure of name. Dr Pierce ( Neuro). Dr Alcocer (Cardio Surgeon [facility]) Preferred Pharmacy: [facility] Insurance: [employer] [facility], [email or web address]. Pt's reports that the pt is active with [facility] and that the pt's CM is Fide Cezarpaula ([phone]). TC to the at this time. No answer, VM left. Alicia states that she is active with and is the pt's [employer] 05/09. Shweta also states that the pt has a medical alert system and moms meals. Prescription Benefit: Yes LNOK: Shweta Catherine (W), Alicia (Daughter), Apple (Daughter) Living Arrangements: Pt lives in the basement of a double wide with a flat entrance. reports that they live in the basement portion and do not need to go upstairs for anything. ADLs/IADLs: Pt requires assistance and the pt receives care mainly from the daughterAlicia as the [employer]. Transportation: [employer], is the main source of transportation DME: CPAP @ [facility] but does not use. Pulse ox. Continuous BGM with sensors. reports that they do not have a backup BGM any longer. CM to follow for Rx. FWW. WC. Scooter. Gait Belt. BSC. Shower chair. Medical alert. HHC/SNF: History with [facility]. Hx with [facility]. Pt?s goal: TBD Plan: TBD. Today is VD#3. Per ICU rounds, SBT to initiate tomorrow. CM to follow for DC needs. Pt's and daughter deny further questions or concerns at this time. Priyank Garcia RN CM
--- NOTE | 2024-12-17 10:45 | CASEMGMT ---
Social Work Pt has not completed the HCPOA document as per . She states she is the decision maker along w/her two adult children. SW did emphasize w/her that she is the decision maker should that be needed if there are no documents completed. NICOL Hathaway
[2024-12-17] MEDS: 0.9% Saline Lock 10 ML Syringe IV ×2 (11:41→21:05)
[2024-12-17] MEDS: CHLORHEXIDINE GLUC 2% CLOTH 1 EACH TOWELETTE TOPICAL ×2 (12:26→22:19)
--- NOTE | 2024-12-17 13:29 | NURSING ---
updated via phone , med list updated.
[2024-12-17] MEDS: Heparin Injection (Vial) 5,000 UNIT/ML VIAL 5000 UNIT SC ×2 (13:46→21:03)
[2024-12-17] MEDS: dexMEDEtomidine 400 MCG in 0.9% Normal Saline (100mL Bag) 96 ML 18.6 MCG CONT INF (13:49)
[2024-12-17] MEDS: fentaNYL drip 100 ML 7.5 MCG CONT INF (13:54)
[2024-12-18] VITALS (68 sets, daily range): BP systolic 84–182; BP diastolic 38–55; PULSE 77–98; RESP 16–39; TEMP 37.8–38.6; O2SAT 91–96; BMI 46.3
[2024-12-18] MEDS: dexMEDEtomidine 400 MCG in 0.9% Normal Saline (100mL Bag) 96 ML 15.5 MCG CONT INF (01:38)
[2024-12-18] MEDS: fentaNYL drip 100 ML 7.5 MCG CONT INF (03:11)
[2024-12-18 04:34] LABS: Hematocrit 38.3 % (40-54); Hemoglobin 12.9 g/dL (13.0-16.5); Immature Granulocytes Count 0.070 X10^3/uL (0.0-0.0); Mean Corp Hgb Conc 33.7 g/dL (32-36); Mean Corpuscular Volume 90.1 fL (80-94); Mean Platelet Vol. 12.5 fl (6.2-12.0); NRBC Flagged by Analyzer 0 % (0-5); POSITIVE DIFFERENTIAL YES; Platelet Count 127 K/mm3 (150-450); RBC Distribution Width CV 13.0 % (11.6-14.6); RBC Distribution Width SD 42.3 fl (35.1-43.9); Red Blood Count 4.25 M/mm3 (4.6-6.2); White Blood Count 10.5 K/mm3 (4.4-11.0)
[2024-12-18 04:50] LABS: Allen Test Positive; Base Excess 2 mmol/L (-2 to +2); FI02 35.0; PEEP 5; PO2 60 mmHG (75-100); RR 16; SITE L Radial; SO2 92 % (94-98)
[2024-12-18 04:57] LABS: AST(SGOT) 13 U/L (<=37); Alanine Aminotransfer ALT/SGPT 7 U/L (<=46); Albumin, Serum 2.6 g/dL (3.4-4.8); Alkaline Phosphatase 74 U/L (40-129); Anion Gap 9 (5-15); BUN 13 mg/dL (4-19); BUN/Creat Ratio 16.9 RATIO (10-20); Calcium,Total 8.3 mg/dL (7.6-11.0); Carbon Dioxide 24.2 mmol/L (21.0-32.0); Chloride 103 mmol/L (98-108); Estimated Creatinine Clearance 114.74 ml/min (50-250); Globulin 2.6 g/dL (2.2-4.2); Glucose 288 mg/dL (70-99); Potassium 3.8 mmol/L (3.3-5.1)
--- NOTE | 2024-12-18 05:01 | PCM.HOSP.N ---
Hospitalist Note Called due to persistent hypotensive since about 3 AM. Most recent blood pressure at 5 AM was 89/33. Will check stat lactate and restart Levophed. Levophed has been off since 12/16/2024. Unable to utilize midodrine as patient is n.p.o. strictly due to perforated viscus.
--- NOTE | 2024-12-18 05:04 | RAD_ITS ---
PROCEDURE: CHEST 1 VIEW (PORTABLE) 12/18/2024 REASON FOR EXAM: RESPIRATORY FAILURE TECHNIQUE: Frontal view of the chest. COMPARISON: December 16, 2024 FINDINGS: Oblique view of the chest. There is an ET tube in position with its tip 3.2 cm above the level of the fely. There is an enteric tube with its tip below the field of view of this exam. Sternotomy wires are noted. There is cardiomegaly with prominent central vascular markings. There is blunting of the costophrenic angle on the right and left consistent with a component of small effusions. There is no visible pneumothorax. There is no acute bony abnormality. Aortic calcifications are present. RAD/Chest 1 View (Portable) IMPRESSION: Tubes and lines in position. There is cardiomegaly with prominent central vascular markings. There is blunti ng of the costophrenic angle on the right and left consistent with a component of small effusions. Reading Location: [facility]
[2024-12-18] MEDS: metroNIDAZOLE 500 MG/100 ML BAG 100 MG IV ×3 (05:17→21:15)
[2024-12-18] MEDS: 0.9% Saline Lock 10 ML Syringe IV ×2 (05:17→14:53)
[2024-12-18] MEDS: Heparin Injection (Vial) 5,000 UNIT/ML VIAL 5000 UNIT SC ×3 (05:18→21:15)
[2024-12-18] MEDS: Budesonide Respules 0.5 MG/2 ML AMPUL.NEB. INHALATION ×2 (06:41→19:51)
[2024-12-18] MEDS: Norepinephrine 8 MG in 0.9% Normal Saline (250mL Bag) 242 ML 9.4 MG CONT INF (07:06)
--- NOTE | 2024-12-18 07:50 | PCM.PN.SRG ---
Subjective Subjective Patient seen and examined during AM rounds. He is found resting in bed. Nursing reports that Levophed was just added approximately 7 AM this morning after recording serial lower blood pressures. They additionally notes some oliguria. Patient apparently otherwise stable and not received any recent boluses for sedation. According to bedside nursing there is still plan for breathing trial but while continuing fentanyl as there is concern for breakthrough pain limiting yesterday's success. Nursing denies any evidence for return of bowel function. Objective Data Objective Data Vital Signs: Vital Signs Temp Pulse Resp BP Pulse Ox O2 Del Method O2 Flow Rate 100.6 F H 87 22 H 158/51 H 95 Mechanical Ventilator 2 12/18/24 07:30 12/18/24 07:30 12/18/24 07:30 12/18/24 07:30 12/18/24 07:30 12/18/24 07:30 12/15/24 21:28 FiO2 35 12/18/24 07:30 Oxygen Flow Rate (L/min) 2 Oxygen Delivery Method Mechanical Ventilator Weight: 271 lb 6.224 oz Body Mass Index (BMI) 46.3 Intake & Output: Intake and Output for Last 24 Hours 12/16/24 12/17/24 12/18/24 23:59 23:59 23:59 Intake Total 6440.73 / 6451.52 2743.21 / 2766.21 272.54 / 272.54 Output Total 2380 / 2630 2170 / 2170 750 / 750 Balance 4060.73 / 3821.52 573.21 / 596.21 -477.46 / -477.46 Lab / Micro Data 12/18/24 04:26 12/18/24 04:26 Labs: Laboratory Results - last 24 hr 12/17/24 11:38: POC Glucose 262 H 12/17/24 17:30: POC Glucose 243 H 12/17/24 23:25: POC Glucose 273 H 12/18/24 04:26: WBC 10.5, RBC 4.25 L, Hgb 12.9 L, Hct 38.3 L, MCV 90.1, MCH 30.4, MCHC 33.7, RDW Std Deviation 42.3, RDW Coeff of David 13.0, Plt Count 127 L, MPV 12.5 H, Immature Gran % (Auto) 0.700, Neut % (Auto) 88.2 H, Lymph % (Auto) 4.9 L, [place] % (Auto) 5.9, Eos % (Auto) 0.1, Baso % (Auto) 0.2, Absolute Neuts (auto) 9.3 H, Absolute Lymphs (auto) 0.52 L, Nucleated RBC % 0, Sodium 137, Potassium 3.8, Chloride 103, Carbon Dioxide 24.2, Anion Gap 9, BUN 13, Creatinine 0.79, Estim Creat Clear Calc 114.74, Est GFR (MDRD) Non-Af 100, BUN/Creatinine Ratio 16.9, Glucose 288 H, Calcium 8.3, Total Bilirubin 0.73, AST 13, ALT 7, Alkaline Phosphatase 74, Total Protein 5.2 L, Albumin 2.6 L, Globulin 2.6, Albumin/Globulin Ratio 1.0 12/18/24 05:11: Lactic Acid 1.1 12/18/24 05:16: POC Glucose 250 H Micro: Microbiology 12/16/24 02:51 Sputum, Induced/Lukens Gram Stain - Final ABG Data ABG results: ABG 12/18/24 04:46 Specimen Type ART Sample Site L Radial pH 7.44 Bicarbonate Actual 25.7 Total CO2 27 Base Excess 2 O2 Saturation 92 L O2 % 35.0 ABG pCO2 37.8 ABG pO2 60 L Trevon Test Positive Respiration Rate 16 O2 Delivery Device Adult Vent Vent Mode AC Tidal Volume 450.0 POC PEEP 5 Radiography Diagnostic Testing: Radiology Impression Chest X-Ray 12/18/24 05:04 IMPRESSION: Tubes and lines in position. There is cardiomegaly with prominent central vascular markings. There is blunting of the costophrenic angle on the right and left consistent with a component of small effusions. Reading Location: [facility] Rhythm Strip Rhythm Strip: Sinus Rhythm Rate: 76 Ectopy: None Physical Exam Const no apparent distress Constitutional Narrative: Patient appears to be oriented to person and place giving appropriate responses to questioning Resp Resp Narrative: Patient with even nonlabored breaths and no alarm on vent Cardio Cardio Narrative: Regular rate GI GI Narrative: Obese, minimally distended, operative dressings initially intact with partial saturation of serosanguineous drainage, soft, appropriately tender to palpation. Orogastric tube with thin bilious output. Assessment & Plan Assessment/Plan (1) Perforated abdominal viscus: PLAN: Patient is postoperative day 3 from ex lap with small bowel resection and Re anastomosis. Overall clinical picture demonstrates continued improvement, however, patient was unable to extubate yesterday on the account of tachypnea and tachycardia. Plans are in place to repeat breathing trial today while still on fentanyl. Additionally, patient required reapplication of vasopressors this morning but at low dose is while exceeding the target MAP. Moreover it does not appear he is receiving quite adequate maintenance fluid intake. Therefore, I have ordered a 500 cc normal saline bolus and will follow for response. Hopefully this will have a positive impact on his urine output as well. Lastly, there has been no sign return of bowel function as of yet. Neuro: Fentanyl gtt. Pulm/CV: Patient still requiring ventilatory support but anticipate breathing trial today. Patient hypotensive requiring vasopressors, but will follow-up results of fluid bolus and look to wean as possible. Target MAP of 65 mmHg FEN/GI: Continue n.p.o. with NG tube to low intermittent wall suction. Continue Protonix ulcer prophylaxis. Monitor for return of bowel function. : Continue Zazueta catheter while oliguric and monitor for response to above fluid bolus. Heme/ID: Continue empiric IV antibiotics. WBCs showing appropriate downtrend. Endo: Patient persistently hyperglycemic. Insulin sliding scale increased to high-dose but may require increase of basal glargine as well. Proph: Stress ulcer prophylaxis. Lovenox. Dispo: Continue ICU stay. Dwight Chacon MD General Surgery Endocrine Surgery Pager: [facility] [address] [place] [address], [facility], [address] [place] [address] Office: [phone] Charges/Coding Visit Charges Inpatient E&M: 37118 Subs Hosp L2
[2024-12-18] MEDS: 0.9% Normal Saline (250mL Bag) 500 ML 999 ML IV (08:05)
--- NOTE | 2024-12-18 08:17 | PN.CC_ITS ---
Objective Data Objective Data Vital Signs: Vital Signs Last response 3 Temperature 38.2 C H 12/18/24 08:00 Temperature Source Core 12/18/24 08:00 Pulse Rate 89 12/18/24 08:00 Pulse Strength Normal (2+) 12/17/24 20:17 Respiratory Rate 20 H 12/18/24 08:00 Respiratory Effort Mechanically Ventilated 12/18/24 04:00 Respiratory Depth Normal 12/18/24 04:00 Respiratory Pattern Normal 12/18/24 06:41 Blood Pressure 152/53 H 12/18/24 08:00 Blood Pressure Mean 86 12/18/24 08:00 Blood Pressure Source Monitor 12/18/24 07:00 Blood Pressure Position Semi-Fowlers 12/18/24 08:00 Blood Pressure Location Right Arm 12/18/24 08:00 Baseline BP 129/88 12/16/24 00:15 Pulse Ox 94 12/18/24 08:00 Oxygen Delivery Method Mechanical Ventilator 12/18/24 08:00 Oxygen Flow Rate (L/min) 2 12/15/24 21:28 Fraction of Inspired Oxygen (FIO2) 35 12/18/24 08:00 I&O: I&O Last 24 Hours 3 12/17/24 12/17/24 12/18/24 11:59 23:59 11:59 Intake Total 1959.47 / 2766.21 783.74 / 2766.21 293.85 / 293.85 Output Total 1260 / 2170 910 / 2170 750 / 750 Balance 699.47 / 596.21 -126.26 / 596.21 -456.15 / -456.15 I&O: Total Stay 3 12/15/24 17:38 thru 12/18/24 08:03 Intake Total 9577.79 Output Total 5425 Balance 4152.79 Current Meds Ordered / Administered: Current meds ordered / Administered 3 Generic Name Dose Route Start Last Admin Trade Name Freq PRN Reason Stop Dose Admin Albuterol Sulfate 2.5 mg 12/15/24 23:37 Albuterol 2.5 Mg/3 Ml Vial.Neb. INHALATION Q2H PRN PRN Dyspnea, wheezing Albuterol/Ipratropium 3 ml 12/16/24 02:15 12/18/24 06:41 Ipratropium/Albuterol Sulfate 3 Ml Ampul.Neb INHALATION 3 ml Q6H.RT MAINE Administration Budesonide 0.5 mg 12/15/24 23:45 12/18/24 06:41 Budesonide Respules 0.5 Mg/2 Ml Ampul.Neb. INHALATION 0.5 mg BID.RT MAINE Administration Chlorhexidine Gluconate 15 ml 12/16/24 10:00 12/17/24 19:51 Chlorhexidine 15 Ml PO 15 ml BID MAINE Administration Chlorhexidine Gluconate 1 each 12/16/24 10:00 12/17/24 22:19 Chlorhexidine Gluc 2% Cloth 1 Each Towelette TOPICAL 1 each DAILY MAINE Administration Fentanyl Citrate 50 - 100 mcg 12/15/24 23:22 Fentanyl 100 Mcg/2 Ml Ampul IV Q2H PRN PRN Pain Score 1-10 Glucagon 1 mg 12/15/24 23:36 Glucagon 1 Mg/Ml Syringe IM X1 PRN Hypoglycemia Protocol Heparin Sodium (Porcine) 5,000 unit 12/17/24 14:00 12/18/24 05:18 Heparin Injection (Vial) 5,000 Unit/Ml Vial SC 5,000 unit Q8 MAINE Administration Hydralazine HCl 10 mg 12/15/24 23:37 Hydralazine 20 Mg/Ml Vial IV Q4H PRN PRN SBP > 160 Protocol Ciprofloxacin 400 mg in 200 mls @ 200 mls/hr 12/16/24 10:00 12/17/24 23:19 Cipro IV Infused Q12 MAINE Infusion Metronidazole 500 mg in 100 mls @ 100 mls/hr 12/16/24 06:00 12/18/24 06:17 Flagyl IV Infused Q8 MAINE Infusion Dextrose 250 mls @ 0 mls/hr 12/15/24 23:36 Dextrose 10%-Water IV .Q0M PRN HYPOGLYCEMIA Protocol As Directed Pantoprazole Sodium 40 mg/ 100 mls @ 330 mls/hr 12/15/24 23:40 12/17/24 23:46 Sodium Chloride IV Infused Q12 MAINE Infusion Fentanyl 100 mls @ 2.5 mls/hr 12/15/24 23:40 12/18/24 08:03 CONT INF 75 mcg/hr UD MAINE 7.5 mls/hr Protocol Titration 25 MCG/HR Sodium Chloride 250 mls @ 15 mls/hr 12/16/24 01:04 IV .[id number] PRN Saline Flush Sodium Chloride 250 mls @ 15 mls/hr 12/16/24 01:04 IV .[id number] PRN Additional IVPB Infusion Dexmedetomidine HCl 400 mcg/ 100 mls @ 15.388 mls/hr 12/17/24 08:30 12/18/24 08:00 Sodium Chloride CONT INF 0.3 mcg/kg/hr .[id number] MAINE 9.2 mls/hr Protocol Titration 0.5 MCG/KG/HR Norepinephrine Bitartrate 8 mg 250 mls @ 9.375 mls/hr 12/18/24 05:05 12/18/24 08:00 / Sodium Chloride CONT INF 3 mcg/min .[id number] MAINE 5.6 mls/hr Protocol Titration 5 MCG/MIN Insulin Glargine 30 unit 12/17/24 10:00 12/17/24 09:58 Insulin Glargine-Yfgn 100 Unit/Ml Pen SC 30 unit DAILY MAINE Administration Insulin Human Lispro 0 unit 12/16/24 00:00 12/18/24 05:17 Insulin Lispro 100 Unit/Ml Insuln.Pen SC 3 u Q6 MAINE Administration Protocol Sodium Chloride 10 - 40 ml 12/15/24 23:22 12/18/24 05:17 0.9% Saline Lock 10 Ml Syringe IV 10 ml UD PRN Administration SALINE FLUSH Sodium Chloride 10 - 40 ml 12/15/24 23:22 0.9% Saline Lock 10 Ml Syringe IV UD PRN SALINE FLUSH Sodium Chloride 10 - 40 ml 12/16/24 01:04 0.9% Saline Lock 10 Ml Syringe IV UD PRN SALINE FLUSH Lab / Micro Data 12/18/24 04:26 12/18/24 04:26 Labs: Laboratory Results - last 24 hr 12/17/24 11:38: POC Glucose 262 H 12/17/24 17:30: POC Glucose 243 H 12/17/24 23:25: POC Glucose 273 H 12/18/24 04:26: WBC 10.5, RBC 4.25 L, Hgb 12.9 L, Hct 38.3 L, MCV 90.1, MCH 30.4, MCHC 33.7, RDW Std Deviation 42.3, RDW Coeff of David 13.0, Plt Count 127 L, MPV 12.5 H, Immature Gran % (Auto) 0.700, Neut % (Auto) 88.2 H, Lymph % (Auto) 4.9 L, [place] % (Auto) 5.9, Eos % (Auto) 0.1, Baso % (Auto) 0.2, Absolute Neuts (auto) 9.3 H, Absolute Lymphs (auto) 0.52 L, Nucleated RBC % 0, Sodium 137, Potassium 3.8, Chloride 103, Carbon Dioxide 24.2, Anion Gap 9, BUN 13, Creatinine 0.79, Estim Creat Clear Calc 114.74, Est GFR (MDRD) Non-Af 100, BUN/Creatinine Ratio 16.9, Glucose 288 H, Calcium 8.3, Total Bilirubin 0.73, AST 13, ALT 7, Alkaline Phosphatase 74, Total Protein 5.2 L, Albumin 2.6 L, Globulin 2.6, Albumin/Globulin Ratio 1.0 12/18/24 05:11: Lactic Acid 1.1 12/18/24 05:16: POC Glucose 250 H ABG Data ABG results: ABG 12/18/24 04:46 Specimen Type ART Sample Site L Radial pH 7.44 Bicarbonate Actual 25.7 Total CO2 27 Base Excess 2 O2 Saturation 92 L O2 % 35.0 ABG pCO2 37.8 ABG pO2 60 L Trevon Test Positive Respiration Rate 16 O2 Delivery Device Adult Vent Vent Mode AC Tidal Volume 450.0 POC PEEP 5 Rhythm Strip Rhythm Strip: Sinus Rhythm Rate: 76 Ectopy: None Imaging Radiology Impression Chest X-Ray 12/18/24 05:04 IMPRESSION: Tubes and lines in position. There is cardiomegaly with prominent central vascular markings. There is blunting of the costophrenic angle on the right and left consistent with a component of small effusions. Reading Location: [facility] Subjective Subjective Pt seen and examined. Hypotensive this AM and was started on low dose Nepi ~0700. Slight drop in UOP noted as well. NGT ~500cc output overnight (bile) Fent @ 75 Precedex @ 0.3 NEpi @ 3 PE: General: Morbidly obese acutely ill male, +MV HEENT: anicteric Sclera; + ETT, nl nose; supple neck, no masses Cardiovascular: Regular Rate and Rhythm; no rubs, gallops; no edema Respiratory: diminished; no crackles, wheezes, or rhonchi Abdominal: large pannus, mildly distended, soft, midline incision clean and without discharge Extremities: Warm, well perfused; No clubbing, cyanosis; capillary refill < 2 sec Neurological: sedated but responsive A/P: #Acute postoperative respiratory failure #SB perforation sp exlap resection & re-anastomosis POD #3 #Shock/hypotension #Lactic acidosis- resolved #Acute normocytic anemia #Acute thrombocytopenia #DM -Cont MV; settings reviewed/adjusted; cont sedation/analgesia; SAT/SBT today -Cont low dose NEpi; likely 2* to sedation effect and intravasv volume depletion --> receiving 500cc NS bolus per surgery -Cont emp IV Abx; F/U Cx; monitor temp curve/WBC/band % -Cont strict I/Os; fluid bolus and maintenance IVF as above -Cont NGT to LIWS, incision looks good, still awaiting return of bowel function -Monitor blood counts -Cont SSI & uptitrate LA insulin as needed; goal ICU BG ~140-200 md/dL NPO LMWH, PPI Guarded prognosis Kevin Pope MD CCT: 50 min Entirety of encounter done via telemedicine Vitals, labs, diagnostics reviewed in EMR. This patients illness acutely impairs one or more vital organ systems such that there is a high probability of imminent or life threatening deterioration in the patient?s condition. I have used high-complexity decision making to assess, manipulate, & support vital systems to treat single or multiple vital organ system failure &/or prevent further life threatening deterioration of the patient?s condition. Time of note does not reflect time of service.
[2024-12-18] MEDS: 0.9% Normal Saline (1000mL) 1,000 ML 150 ML IV ×2 (08:45→17:23)
[2024-12-18] MEDS: Pantoprazole Sodium 40 MG in 0.9% Normal Saline (100mL MB+) 100 ML 330 MG IV ×2 (09:00→23:33)
[2024-12-18] MEDS: Insulin Glargine-YFGN 100 UNIT/ML Pen 30 UNIT SC (09:28)
[2024-12-18] MEDS: Chlorhexidine 15 ML PO ×2 (09:31→21:13)
--- NOTE | 2024-12-18 10:24 | PN.HOSP_ITS ---
Subjective Subjective Still intubated. NGT inplace. Objective Data Objective Data Vital Signs: Vital Signs Temp Pulse Resp BP Pulse Ox O2 Del Method O2 Flow Rate 38.2 C H 91 34 H 107/48 L 94 Mechanical Ventilator 2 12/18/24 08:00 12/18/24 09:03 12/18/24 09:03 12/18/24 09:30 12/18/24 09:03 12/18/24 08:00 12/15/24 21:28 FiO2 35 12/18/24 09:03 Oxygen Flow Rate (L/min) 2 Oxygen Delivery Method Mechanical Ventilator Weight: 123.1 kg Body Mass Index (BMI) 46.3 Intake & Output: Intake and Output for Last 24 Hours 12/16/24 12/17/24 12/18/24 23:59 23:59 23:59 Intake Total 6440.73 / 6451.52 2743.21 / 2766.21 916.76 / 916.76 Output Total 2380 / 2630 2170 / 2170 750 / 750 Balance 4060.73 / 3821.52 573.21 / 596.21 166.76 / 166.76 Lab / Micro Data 12/18/24 04:26 12/18/24 04:26 Labs: Laboratory Results - last 24 hr 12/17/24 11:38: POC Glucose 262 H 12/17/24 17:30: POC Glucose 243 H 12/17/24 23:25: POC Glucose 273 H 12/18/24 04:26: WBC 10.5, RBC 4.25 L, Hgb 12.9 L, Hct 38.3 L, MCV 90.1, MCH 30.4, MCHC 33.7, RDW Std Deviation 42.3, RDW Coeff of David 13.0, Plt Count 127 L, MPV 12.5 H, Immature Gran % (Auto) 0.700, Neut % (Auto) 88.2 H, Lymph % (Auto) 4.9 L, [place] % (Auto) 5.9, Eos % (Auto) 0.1, Baso % (Auto) 0.2, Absolute Neuts (auto) 9.3 H, Absolute Lymphs (auto) 0.52 L, Nucleated RBC % 0, Sodium 137, Potassium 3.8, Chloride 103, Carbon Dioxide 24.2, Anion Gap 9, BUN 13, Creatinine 0.79, Estim Creat Clear Calc 114.74, Est GFR (MDRD) Non-Af 100, BUN/Creatinine Ratio 16.9, Glucose 288 H, Calcium 8.3, Total Bilirubin 0.73, AST 13, ALT 7, Alkaline Phosphatase 74, Total Protein 5.2 L, Albumin 2.6 L, Globulin 2.6, Albumin/Globulin Ratio 1.0 12/18/24 05:11: Lactic Acid 1.1 12/18/24 05:16: POC Glucose 250 H Micro: Microbiology 12/16/24 02:51 Sputum, Induced/Lukens Gram Stain - Final 12/16/24 02:51 Sputum, Induced/Lukens Respiratory Culture - Preliminary Alpha hemolytic organism Streptococcus group B ABG Data ABG results: ABG 12/18/24 04:46 Specimen Type ART Sample Site L Radial pH 7.44 Bicarbonate Actual 25.7 Total CO2 27 Base Excess 2 O2 Saturation 92 L O2 % 35.0 ABG pCO2 37.8 ABG pO2 60 L Trevon Test Positive Respiration Rate 16 O2 Delivery Device Adult Vent Vent Mode AC Tidal Volume 450.0 POC PEEP 5 Radiography Diagnostic Testing: Radiology Impression Chest X-Ray 12/18/24 05:04 IMPRESSION: Tubes and lines in position. There is cardiomegaly with prominent central vascular markings. There is blunting of the costophrenic angle on the right and left consistent with a component of small effusions. Reading Location: [facility] Rhythm Strip Rhythm Strip: Sinus Rhythm Rate: 76 Ectopy: None Physical Exam Const alert Constitutional Narrative: intubated. establishes eye contact. HEENT head/scalp atraumatic and moist oral mucous membranes Resp Resp Narrative: coarse breath sounds. Cardio regular rate, regular rhythm, S1 normal heart sound and S2 normal heart sound GI GI Narrative: distended. hypoactive bowel sounds. Extremity normal to inspection and full ROM Neuro Sensorium / Orientation: awake and alert Assessment & Plan Assessment/Plan (1) Perforated abdominal viscus: PLAN: s/p ex-lap w resection with anastamosis. mgmt per general surgery. OG tube in place. abx w cipro and metronidazole will order IVF as pt is NPO. Consider TPN/PPN if no imminent return of bowel function. PLAN: Plan DM2: on SSI. Add glargine Septic shock: on norepinephrine. 2/2 perforated viscous. Acute respiratory failure: vent mgmt per CCM. HTN: amlodipine held given shock. VTE prophylaxis: per primary service. Charges/Coding Visit Charges Inpatient E&M: 52660 Subs Hosp L2
[2024-12-18] MEDS: dexMEDEtomidine 400 MCG in 0.9% Normal Saline (100mL Bag) 96 ML 12.3 MCG CONT INF (10:40)
--- NOTE | 2024-12-18 11:01 | CPS ---
pt still sleepy/lethargic. unable to decrease RR below 30. pt fail SBT
[2024-12-18] MEDS: Insulin Glargine-YFGN 100 UNIT/ML Pen 10 UNIT SC (12:19)
--- NOTE | 2024-12-18 14:51 | WOUNDNOTE ---
wound photo: left buttock
[2024-12-18] MEDS: dexMEDEtomidine 400 MCG in 0.9% Normal Saline (100mL Bag) 96 ML 9.2 MCG CONT INF (21:24)
[2024-12-18] MEDS: fentaNYL drip 100 ML 2.5 MCG CONT INF (21:27)
[2024-12-19] VITALS (57 sets, daily range): BP systolic 79–144; BP diastolic 40–66; PULSE 74–90; RESP 16–32; TEMP 37.6–38.8; O2SAT 93–96; BMI 47.9
[2024-12-19] MEDS: 0.9% Normal Saline (1000mL) 1,000 ML 150 ML IV ×2 (00:13→07:03)
[2024-12-19] MEDS: metroNIDAZOLE 500 MG/100 ML BAG 100 MG IV ×3 (05:04→21:22)
[2024-12-19] MEDS: dexMEDEtomidine 400 MCG in 0.9% Normal Saline (100mL Bag) 96 ML 12.3 MCG CONT INF ×3 (05:07→21:15)
[2024-12-19] MEDS: Heparin Injection (Vial) 5,000 UNIT/ML VIAL 5000 UNIT SC ×3 (05:30→21:40)
[2024-12-19 06:24] LABS: Hematocrit 36.3 % (40-54); Hemoglobin 12.3 g/dL (13.0-16.5); Immature Granulocytes Count 0.040 X10^3/uL (0.0-0.0); Mean Corp Hgb Conc 33.9 g/dL (32-36); Mean Corpuscular Volume 90.5 fL (80-94); Mean Platelet Vol. 11.6 fl (6.2-12.0); NRBC Flagged by Analyzer 0 % (0-5); Platelet Count 147 K/mm3 (150-450); RBC Distribution Width CV 13.0 % (11.6-14.6); RBC Distribution Width SD 43.1 fl (35.1-43.9); Red Blood Count 4.01 M/mm3 (4.6-6.2); White Blood Count 8.2 K/mm3 (4.4-11.0)
--- NOTE | 2024-12-19 06:59 | PCM.PN.HOSP ---
Subjective Subjective Still on the vent. Objective Data Objective Data Vital Signs: Vital Signs Temp Pulse Resp BP Pulse Ox O2 Del Method O2 Flow Rate 38.2 C H 80 18 100/48 L 94 Mechanical Ventilator 2 12/19/24 04:00 12/19/24 06:00 12/19/24 06:00 12/19/24 06:00 12/19/24 06:00 12/19/24 06:00 12/15/24 21:28 FiO2 35 12/19/24 06:00 Oxygen Flow Rate (L/min) 2 Oxygen Delivery Method Mechanical Ventilator Weight: 127.3 kg Body Mass Index (BMI) 47.9 Intake & Output: Intake and Output for Last 24 Hours 12/17/24 12/18/24 12/19/24 23:59 23:59 23:59 Intake Total 2743.21 / 2766.21 2849.24 / 2870.34 1255.60 / 1255.60 Output Total 2170 / 2170 1800 / 2100 1200 / 1200 Balance 573.21 / 596.21 1049.24 / 770.34 55.60 / 55.60 Lab / Micro Data 12/19/24 06:12 12/19/24 06:12 Labs: Laboratory Results - last 24 hr 12/18/24 12:16: POC Glucose 249 H 12/18/24 17:29: POC Glucose 196 H 12/19/24 00:16: POC Glucose 220 H 12/19/24 05:29: POC Glucose 202 H 12/19/24 06:12: WBC 8.2, RBC 4.01 L, Hgb 12.3 L, Hct 36.3 L, MCV 90.5, MCH 30.7, MCHC 33.9, RDW Std Deviation 43.1, RDW Coeff of David 13.0, Plt Count 147 L, MPV 11.6, Immature Gran % (Auto) 0.500, Neut % (Auto) 82.5 H, Lymph % (Auto) 7.8 L, [place] % (Auto) 8.6, Eos % (Auto) 0.2, Baso % (Auto) 0.4, Absolute Neuts (auto) 6.8, Absolute Lymphs (auto) 0.64 L, Nucleated RBC % 0 Micro: Microbiology 12/16/24 00:50 Blood Culture (Wb) - Left Wrist Blood Culture - Preliminary No growth in 48 hours. 12/16/24 00:40 Blood Culture (Wb) - Anticubital Right Blood Culture - Preliminary No growth in 48 hours. 12/16/24 02:51 Sputum, Induced/Lukens Gram Stain - Final 12/16/24 02:51 Sputum, Induced/Lukens Respiratory Culture - Preliminary Alpha hemolytic organism Streptococcus group B Rhythm Strip Rhythm Strip: Sinus Rhythm Rate: 76 Ectopy: None Physical Exam Narrative POCUS: indication respiratory failure. Limited exam given surgery, body habitus and positioning. Unable to visualize IVC. No b-lines anteriorly. Const Constitutional Narrative: intubated. sedated. HEENT head/scalp atraumatic and moist oral mucous membranes Resp normal respiratory effort and no retractions Resp Narrative: coarse breath sounds bilaterally. Cardio regular rate, regular rhythm, S1 normal heart sound and S2 normal heart sound GI GI Narrative: distended. hypoactive bowel sounds. Extremity normal to inspection and full ROM Neuro Sensorium / Orientation: awake Assessment & Plan Assessment/Plan (1) Perforated abdominal viscus: PLAN: s/p ex-lap w resection with anastamosis. mgmt per general surgery. OG tube in place. abx w cipro and metronidazole will order IVF as pt is NPO. Consider TPN/PPN if no imminent return of bowel function. PLAN: Plan Respiratory failure: still on the vent. sedation w dexmedetomidine and fentanyl. CCM following. No overt CHF on POCUS (though limited) DM2: glucose in 200s. Continue glargine and SSI. Septic shock: still on norepinephrine. 2/2 perforated viscous. HTN: amlodipine held given shock. VTE prophylaxis: per primary service. Charges/Coding Visit Charges Inpatient E&M: 82126 Subs Hosp L2
[2024-12-19 07:07] LABS: AST(SGOT) 11 U/L (<=37); Alanine Aminotransfer ALT/SGPT 6 U/L (<=46); Albumin, Serum 2.2 g/dL (3.4-4.8); Alkaline Phosphatase 65 U/L (40-129); Anion Gap 10 (5-15); BUN 9 mg/dL (4-19); BUN/Creat Ratio 14.2 RATIO (10-20); Calcium,Total 7.8 mg/dL (7.6-11.0); Carbon Dioxide 19.8 mmol/L (21.0-32.0); Chloride 109 mmol/L (98-108); Estimated Creatinine Clearance 140.06 ml/min (50-250); Globulin 2.6 g/dL (2.2-4.2); Glucose 228 mg/dL (70-99); Potassium 3.4 mmol/L (3.3-5.1)
[2024-12-19] MEDS: Budesonide Respules 0.5 MG/2 ML AMPUL.NEB. INHALATION ×2 (07:20→19:31)
[2024-12-19] MEDS: Chlorhexidine 15 ML PO ×2 (07:33→22:55)
[2024-12-19] MEDS: CHLORHEXIDINE GLUC 2% CLOTH 1 EACH TOWELETTE TOPICAL (07:33)
[2024-12-19] MEDS: Pantoprazole Sodium 40 MG in 0.9% Normal Saline (100mL MB+) 100 ML 330 MG IV ×2 (07:39→21:20)
[2024-12-19] MEDS: Insulin Glargine-YFGN 100 UNIT/ML Pen 40 UNIT SC (07:51)
[2024-12-19] MEDS: fentaNYL drip 100 ML 7.5 MCG CONT INF (11:53)
--- NOTE | 2024-12-19 12:51 | PN.SURG_ITS ---
Subjective Subjective Patient remains on ventilator support as he became tachypneic during his breathing trial yesterday. He was also bolused and given fluids for hypotension yesterday. Objective Data Objective Data Vital Signs: Vital Signs Temp Pulse Resp BP Pulse Ox O2 Del Method O2 Flow Rate 99.9 F H 77 18 108/48 L 96 Mechanical Ventilator 2 12/19/24 12:00 12/19/24 12:49 12/19/24 12:49 12/19/24 12:00 12/19/24 12:00 12/19/24 12:00 12/15/24 21:28 FiO2 35 12/19/24 12:00 Oxygen Flow Rate (L/min) 2 Oxygen Delivery Method Mechanical Ventilator Weight: 280 lb 10.375 oz Body Mass Index (BMI) 47.9 Intake & Output: Intake and Output for Last 24 Hours 12/17/24 12/18/24 12/19/24 23:59 23:59 23:59 Intake Total 2743.21 / 2766.21 2849.24 / 2870.34 3022.61 / 3022.61 Output Total 2170 / 2170 1800 / 2100 1500 / 1500 Balance 573.21 / 596.21 1049.24 / 770.34 1522.61 / 1522.61 Lab / Micro Data 12/19/24 06:12 12/19/24 06:12 Labs: Laboratory Results - last 24 hr 12/18/24 12:16: POC Glucose 249 H 12/18/24 17:29: POC Glucose 196 H 12/19/24 00:16: POC Glucose 220 H 12/19/24 05:29: POC Glucose 202 H 12/19/24 06:12: WBC 8.2, RBC 4.01 L, Hgb 12.3 L, Hct 36.3 L, MCV 90.5, MCH 30.7, MCHC 33.9, RDW Std Deviation 43.1, RDW Coeff of David 13.0, Plt Count 147 L, MPV 11.6, Immature Gran % (Auto) 0.500, Neut % (Auto) 82.5 H, Lymph % (Auto) 7.8 L, [place] % (Auto) 8.6, Eos % (Auto) 0.2, Baso % (Auto) 0.4, Absolute Neuts (auto) 6.8, Absolute Lymphs (auto) 0.64 L, Nucleated RBC % 0, Sodium 138, Potassium 3.4, Chloride 109 H, Carbon Dioxide 19.8 L, Anion Gap 10, BUN 9, Creatinine 0.66 L, Estim Creat Clear Calc 140.06, Est GFR (MDRD) Non-Af 106, BUN/Creatinine Ratio 14.2, Glucose 228 H, Calcium 7.8, Total Bilirubin 0.49, AST 11, ALT 6, Alkaline Phosphatase 65, Total Protein 4.7 L, Albumin 2.2 L, Globulin 2.6, Albumin/Globulin Ratio 0.9 12/19/24 07:43: POC Glucose 197 H 12/19/24 11:23: POC Glucose 195 H Micro: Microbiology 12/16/24 02:51 Sputum, Induced/Lukens Gram Stain - Final 12/16/24 02:51 Sputum, Induced/Lukens Respiratory Culture - Final Streptococcus agalactiae (B) 12/16/24 00:50 Blood Culture (Wb) - Left Wrist Blood Culture - Preliminary No growth in 48 hours. 12/16/24 00:40 Blood Culture (Wb) - Anticubital Right Blood Culture - Preliminary No growth in 48 hours. Rhythm Strip Rhythm Strip: Sinus Rhythm Rate: 76 Ectopy: None Physical Exam Const General Appearance: ill appearing Resp normal respiratory effort Cardio regular rate and regular rhythm GI soft to palpation Assessment & Plan Assessment/Plan (1) Perforated abdominal viscus: PLAN: Patient remains intubated and sedated. He is going to have a breathing trial later today. He failed his breathing trial yesterday due to tachypnea. He is currently very edematous as he received bolused IV fluids and increase in basal rate yesterday for hypotension and oliguria. Continue vent support. Continue ICU support. Continue NG suction. Recommendation from the hospitalist is to start TPN. I will consider this tomorrow if he is still intubated Raj Stevenson MD Pager: [facility] [address] [place] [address], [address] [place] [address] Office:
--- NOTE | 2024-12-19 14:18 | PN.CC_ITS ---
Objective Data Objective Data Vital Signs: Vital Signs Last response 3 Temperature 37.7 C H 12/19/24 12:00 Temperature Source Core 12/19/24 12:00 Pulse Rate 79 12/19/24 13:00 Pulse Strength Weak (1+) 12/19/24 07:57 Respiratory Rate 18 12/19/24 13:00 Respiratory Effort Mechanically Ventilated 12/19/24 11:37 Respiratory Depth Normal 12/19/24 11:37 Respiratory Pattern Normal 12/19/24 12:50 Blood Pressure 138/56 H 12/19/24 13:30 Blood Pressure Mean 83 12/19/24 13:30 Blood Pressure Source Monitor 12/18/24 21:00 Blood Pressure Position Semi-Fowlers 12/19/24 03:00 Blood Pressure Location Right Arm 12/19/24 03:00 Baseline BP 129/88 12/16/24 00:15 Pulse Ox 96 12/19/24 13:00 Oxygen Delivery Method Mechanical Ventilator 12/19/24 13:00 Oxygen Flow Rate (L/min) 2 12/15/24 21:28 Fraction of Inspired Oxygen (FIO2) 35 12/19/24 13:00 I&O: I&O Last 24 Hours 3 12/18/24 12/19/24 12/19/24 23:59 11:59 23:59 Intake Total 1690.18 / 2870.34 3007.53 / 3042.92 35.39 / 3042.92 Output Total 700 / 2100 1500 / 1500 Balance 990.18 / 770.34 1507.53 / 1542.92 35.39 / 1542.92 I&O: Total Stay 3 12/15/24 17:38 thru 12/19/24 13:30 Intake Total 37128.10 Output Total 7975 Balance 7201.10 Current Meds Ordered / Administered: Current meds ordered / Administered 3 Generic Name Dose Route Start Last Admin Trade Name Freq PRN Reason Stop Dose Admin Albuterol Sulfate 2.5 mg 12/15/24 23:37 Albuterol 2.5 Mg/3 Ml Vial.Neb. INHALATION Q2H PRN PRN Dyspnea, wheezing Albuterol/Ipratropium 3 ml 12/16/24 02:15 12/19/24 12:41 Ipratropium/Albuterol Sulfate 3 Ml Ampul.Neb INHALATION 3 ml Q6H.RT MAINE Administration Budesonide 0.5 mg 12/15/24 23:45 12/19/24 07:20 Budesonide Respules 0.5 Mg/2 Ml Ampul.Neb. INHALATION 0.5 mg BID.RT MAINE Administration Chlorhexidine Gluconate 15 ml 12/16/24 10:00 12/19/24 07:33 Chlorhexidine 15 Ml PO 15 ml BID MAINE Administration Chlorhexidine Gluconate 1 each 12/16/24 10:00 12/19/24 07:33 Chlorhexidine Gluc 2% Cloth 1 Each Towelette TOPICAL 1 each DAILY MAINE Administration Fentanyl Citrate 50 - 100 mcg 12/15/24 23:22 Fentanyl 100 Mcg/2 Ml Ampul IV Q2H PRN PRN Pain Score 1-10 Glucagon 1 mg 12/15/24 23:36 Glucagon 1 Mg/Ml Syringe IM X1 PRN Hypoglycemia Protocol Heparin Sodium (Porcine) 5,000 unit 12/17/24 14:00 12/19/24 13:25 Heparin Injection (Vial) 5,000 Unit/Ml Vial SC 5,000 unit Q8 MAINE Administration Hydralazine HCl 10 mg 12/15/24 23:37 Hydralazine 20 Mg/Ml Vial IV Q4H PRN PRN SBP > 160 Protocol Ciprofloxacin 400 mg in 200 mls @ 200 mls/hr 12/16/24 10:00 12/19/24 08:52 Cipro IV Infused Q12 MAINE Infusion Metronidazole 500 mg in 100 mls @ 100 mls/hr 12/16/24 06:00 12/19/24 13:27 Flagyl IV 100 mls/hr Q8 MAINE Administration Dextrose 250 mls @ 0 mls/hr 12/15/24 23:36 Dextrose 10%-Water IV .Q0M PRN HYPOGLYCEMIA Protocol As Directed Pantoprazole Sodium 40 mg/ 100 mls @ 330 mls/hr 12/15/24 23:40 12/19/24 08:02 Sodium Chloride IV Infused Q12 MAINE Infusion Fentanyl 100 mls @ 2.5 mls/hr 12/15/24 23:40 12/19/24 13:30 CONT INF 0 mcg/hr UD MAINE 0 mls/hr Protocol Titration 25 MCG/HR Sodium Chloride 250 mls @ 15 mls/hr 12/16/24 01:04 IV .[id number] PRN Saline Flush Sodium Chloride 250 mls @ 15 mls/hr 11/03/25 01:04 IV .[id number] PRN Additional IVPB Infusion Dexmedetomidine HCl 400 mcg/ 100 mls @ 15.388 mls/hr 12/17/24 08:30 12/19/24 13:06 Sodium Chloride CONT INF 0.4 mcg/kg/hr .[id number] MAINE 12.3 mls/hr Protocol Administration 0.5 MCG/KG/HR Norepinephrine Bitartrate 8 mg 250 mls @ 9.375 mls/hr 12/18/24 05:05 12/19/24 13:30 / Sodium Chloride CONT INF 2 mcg/min .[id number] MAINE 3.8 mls/hr Protocol Titration 5 MCG/MIN Sodium Chloride 1,000 mls @ 100 mls/hr 12/18/24 08:45 12/19/24 12:30 IV Not Given .Q10H MAINE Insulin Glargine 40 unit 12/19/24 10:00 12/19/24 07:51 Insulin Glargine-Yfgn 100 Unit/Ml Pen SC 40 unit DAILY MAINE Administration Insulin Human Lispro 0 unit 12/16/24 00:00 12/19/24 11:24 Insulin Lispro 100 Unit/Ml Insuln.Pen SC 2 u Q6 MAINE Administration Protocol Sodium Chloride 10 - 40 ml 12/15/24 23:22 12/18/24 14:53 0.9% Saline Lock 10 Ml Syringe IV 10 ml UD PRN Administration SALINE FLUSH Sodium Chloride 10 - 40 ml 12/15/24 23:22 0.9% Saline Lock 10 Ml Syringe IV UD PRN SALINE FLUSH Sodium Chloride 10 - 40 ml 12/16/24 01:04 0.9% Saline Lock 10 Ml Syringe IV UD PRN SALINE FLUSH Lab / Micro Data 12/19/24 06:12 12/19/24 06:12 Labs: Laboratory Results - last 24 hr 12/18/24 17:29: POC Glucose 196 H 12/19/24 00:16: POC Glucose 220 H 12/19/24 05:29: POC Glucose 202 H 12/19/24 06:12: WBC 8.2, RBC 4.01 L, Hgb 12.3 L, Hct 36.3 L, MCV 90.5, MCH 30.7, MCHC 33.9, RDW Std Deviation 43.1, RDW Coeff of David 13.0, Plt Count 147 L, MPV 11.6, Immature Gran % (Auto) 0.500, Neut % (Auto) 82.5 H, Lymph % (Auto) 7.8 L, [place] % (Auto) 8.6, Eos % (Auto) 0.2, Baso % (Auto) 0.4, Absolute Neuts (auto) 6.8, Absolute Lymphs (auto) 0.64 L, Nucleated RBC % 0, Sodium 138, Potassium 3.4, Chloride 109 H, Carbon Dioxide 19.8 L, Anion Gap 10, BUN 9, Creatinine 0.66 L, Estim Creat Clear Calc 140.06, Est GFR (MDRD) Non-Af 106, BUN/Creatinine Ratio 14.2, Glucose 228 H, Calcium 7.8, Total Bilirubin 0.49, AST 11, ALT 6, Alkaline Phosphatase 65, Total Protein 4.7 L, Albumin 2.2 L, Globulin 2.6, Albumin/Globulin Ratio 0.9 12/19/24 07:43: POC Glucose 197 H 12/19/24 11:23: POC Glucose 195 H Micro: Microbiology 12/16/24 02:51 Sputum, Induced/Lukens Gram Stain - Final 12/16/24 02:51 Sputum, Induced/Lukens Respiratory Culture - Final Streptococcus agalactiae (B) 12/16/24 00:50 Blood Culture (Wb) - Left Wrist Blood Culture - Preliminary No growth in 48 hours. 12/16/24 00:40 Blood Culture (Wb) - Anticubital Right Blood Culture - Preliminary No growth in 48 hours. Rhythm Strip Rhythm Strip: Sinus Rhythm Rate: 76 Ectopy: None Assessment and Plan . Assessment and plan: Exam: G- Obese, lightly sedated but responsive ENT- ETT in place CV- rrr nl s1 s2 no mrg L- CTA in sync with vent Ab- s nt nd + bs Ext- + edema Neuro- moves all extremities Assessment/Plan #Acute postoperative respiratory failure #SB perforation sp exlap resection & re-anastomosis POD #3 #Shock/hypotension #Lactic acidosis- resolved #Acute normocytic anemia #Acute thrombocytopenia #DM -Cont MV; settings reviewed/adjusted; cont sedation/analgesia; SAT/SBT again today -Cont low dose NEpi; at some point we'll need to diurese him to thus far he seems prone to intravascular volume depletion -Cont emp IV Abx; F/U Cx; monitor temp curve/WBC/band % -Cont strict I/Os; even to positive fluid balance until HD more stable -Cont NGT to LIWS, awaiting return of bowel function -Monitor blood counts -Cont SSI & uptitrate LA insulin as needed; goal ICU BG ~140-200 md/dL NPO LMWH, PPI Guarded prognosis Critical Care Time: 52 minutes The entirety of this encounter was done via Telemedicine Physical Exam Narrative see below Subjective Subjective Failed SBT yesterday due to RR in the 40s He is awake and calm this AM, to try again BP improved
[2024-12-19] MEDS: 0.9% Normal Saline (1000mL) 1,000 ML 100 ML IV (16:42)
[2024-12-19] MEDS: Furosemide 20 MG/2 ML VIAL IV (17:22)
[2024-12-19] MEDS: 0.9% Saline Lock 10 ML Syringe IV ×2 (17:22→22:52)
--- NOTE | 2024-12-19 17:38 | CPS ---
legal assistant wants to give lasix and flip patient back over to previous settings.
[2024-12-20] VITALS (37 sets, daily range): BP systolic 113–149; BP diastolic 51–71; PULSE 77–119; RESP 16–35; TEMP 37.4–38.6; O2SAT 91–99; BMI 47.5
--- NOTE | 2024-12-20 04:30 | RAD_ITS ---
PROCEDURE: CHEST 1 VIEW (PORTABLE) 12/20/2024 REASON FOR EXAM: RESPIRATORY FAILURE TECHNIQUE: Frontal view of the chest. COMPARISON: Chest x-ray 12/18/2024. FINDINGS: Hardware: Status post median sternotomy. The NG tube terminates in the stomach. The ET tube terminates 5 cm above the fely. Heart: No cardiomegaly. Lungs: Diffuse reticular pulmonary densities. Lower lungs hazy opacity more on the left side may represent atelectasis with obliteration of the left more than right costophrenic angles consistent with pleural effusion. Bones: No acute bony abnormalities. RAD/Chest 1 View (Portable) IMPRESSION: Diffuse pulmonary densities with pleural effusions suggestive of pulmonary marii a or CHF. Reading Location: [id number]
[2024-12-20] MEDS: dexMEDEtomidine 400 MCG in 0.9% Normal Saline (100mL Bag) 96 ML 12.3 MCG CONT INF (04:50)
[2024-12-20] MEDS: CHLORHEXIDINE GLUC 2% CLOTH 1 EACH TOWELETTE TOPICAL (04:53)
[2024-12-20 05:05] LABS: Base Excess -3 mmol/L (-2 to +2); FI02 35.0; PEEP 5; PO2 64 mmHG (75-100); RR 16; SITE L Radial; SO2 93 % (94-98)
[2024-12-20 06:11] LABS: Hematocrit 40.9 % (40-54); Hemoglobin 13.7 g/dL (13.0-16.5); Immature Granulocytes Count 0.090 X10^3/uL (0.0-0.0); Mean Corp Hgb Conc 33.5 g/dL (32-36); Mean Corpuscular Volume 88.9 fL (80-94); Mean Platelet Vol. 11.2 fl (6.2-12.0); NRBC Flagged by Analyzer 0 % (0-5); Platelet Count 181 K/mm3 (150-450); RBC Distribution Width CV 13.1 % (11.6-14.6); RBC Distribution Width SD 42.9 fl (35.1-43.9); Red Blood Count 4.60 M/mm3 (4.6-6.2); White Blood Count 9.5 K/mm3 (4.4-11.0)
[2024-12-20] MEDS: metroNIDAZOLE 500 MG/100 ML BAG 100 MG IV (06:11)
[2024-12-20] MEDS: Heparin Injection (Vial) 5,000 UNIT/ML VIAL 5000 UNIT SC ×3 (06:14→21:46)
[2024-12-20 06:27] LABS: AST(SGOT) 12 U/L (<=37); Alanine Aminotransfer ALT/SGPT 6 U/L (<=46); Albumin, Serum 2.4 g/dL (3.4-4.8); Alkaline Phosphatase 65 U/L (40-129); Anion Gap 10 (5-15); BUN 8 mg/dL (4-19); BUN/Creat Ratio 11.0 RATIO (10-20); Calcium,Total 7.9 mg/dL (7.6-11.0); Carbon Dioxide 21.6 mmol/L (21.0-32.0); Chloride 107 mmol/L (98-108); Estimated Creatinine Clearance 133.42 ml/min (50-250); Globulin 2.6 g/dL (2.2-4.2); Glucose 189 mg/dL (70-99); Potassium 3.3 mmol/L (3.3-5.1)
--- NOTE | 2024-12-20 07:09 | PN.HOSP_ITS ---
Subjective Subjective Still on the vent, still requiring norepinephrine. Objective Data Objective Data Vital Signs: Vital Signs Temp Pulse Resp BP Pulse Ox O2 Del Method O2 Flow Rate 38.1 C H 80 16 122/60 H 97 Mechanical Ventilator 35 12/20/24 07:00 12/20/24 07:00 12/20/24 07:00 12/20/24 07:00 12/20/24 07:00 12/20/24 07:00 12/20/24 04:00 FiO2 35 12/20/24 07:00 Oxygen Flow Rate (L/min) 35 Oxygen Delivery Method Mechanical Ventilator Weight: 126.4 kg Body Mass Index (BMI) 47.5 Intake & Output: Intake and Output for Last 24 Hours 12/18/24 12/19/24 12/20/24 23:59 23:59 23:59 Intake Total 2849.24 / 2870.34 4418.05 / 4439.15 157.52 / 157.52 Output Total 1800 / 2100 3250 / 3250 1000 / 1000 Balance 1049.24 / 770.34 1168.05 / 1189.15 -842.48 / -842.48 Lab / Micro Data 12/20/24 05:50 12/20/24 05:50 Labs: Laboratory Results - last 24 hr 12/19/24 07:43: POC Glucose 197 H 12/19/24 11:23: POC Glucose 195 H 12/19/24 17:07: POC Glucose 176 H 12/20/24 00:35: POC Glucose 166 H 12/20/24 05:30: WBC Cancelled, Corrected WBC Cancelled, RBC Cancelled, Hgb Cancelled, Hct Cancelled, MCV Cancelled, MCH Cancelled, MCHC Cancelled, RDW Std Deviation Cancelled, RDW Coeff of David Cancelled, Plt Count Cancelled, MPV Cancelled, Immature Gran % (Auto) Cancelled, Neut % (Auto) Cancelled, Lymph % (Auto) Cancelled, [place] % (Auto) Cancelled, Eos % (Auto) Cancelled, Baso % (Auto) Cancelled, Absolute Neuts (auto) Cancelled, Absolute Lymphs (auto) Cancelled, Total Counted Cancelled, Neutrophils % (Manual) Cancelled, Band Neutrophils % Cancelled, Lymphocytes % (Manual) Cancelled, Monocytes % (Manual) Cancelled, Eosinophils % (Manual) Cancelled, Basophils % (Manual) Cancelled, Metamyelocytes % Cancelled, Myelocytes % Cancelled, Promyelocytes % Cancelled, Blast Cells % Cancelled, Plasma Cell % (Manual) Cancelled, Other Cells % Cancelled, Nucleated RBC % Cancelled, Nucleated RBCs/100 WBC Cancelled, Differential Comment Cancelled, Diff Path Review Cancelled, Hypersegmented Neuts Cancelled, Atypical Lymphocytes Cancelled, Reactive Lymphocytes Cancelled, Smudge Cells Cancelled, Toxic Granulation Cancelled, Toxic Vacuolation Cancelled, Dohle Bodies Cancelled, Wilfredo Rods Cancelled, Platelet Estimate Cancelled, Plt Morphology Comment Cancelled, RBC Morphology Cancelled 12/20/24 05:30: RBC Morphology Cancelled, Polychromasia Cancelled, Hypochromasia Cancelled, Basophilic Stippling Cancelled, Anisocytosis Cancelled, Microcytosis Cancelled, Macrocytosis Cancelled, Spherocytes Cancelled, Sickle Cells Cancelled, Target Cells Cancelled, Tear Drop Cells Cancelled, Ovalocytes Cancelled, Stomatocytes Cancelled, Mckay-[place] Bodies Cancelled, [place] Cells Cancelled, Bite Cells Cancelled, Crenated Cell Cancelled, Acanthocytes (Spur) Cancelled, Rouleaux Cancelled, Schistocytes Cancelled, Sodium Cancelled, Potassium Cancelled, Chloride Cancelled, Carbon Dioxide Cancelled, Anion Gap Cancelled, BUN Cancelled, Creatinine Cancelled, Estim Creat Clear Calc Cancelled, Est GFR (MDRD) Non-Af Cancelled, BUN/Creatinine Ratio Cancelled, Glucose Cancelled, Calcium Cancelled, Total Bilirubin Cancelled, AST Cancelled, ALT Cancelled, Alkaline Phosphatase Cancelled, Total Protein Cancelled, Albumin Cancelled, Globulin Cancelled, Albumin/Globulin Ratio Cancelled 12/20/24 05:50: WBC 9.5, RBC 4.60, Hgb 13.7, Hct 40.9, MCV 88.9, MCH 29.8, MCHC 33.5, RDW Std Deviation 42.9, RDW Coeff of David 13.1, Plt Count 181, MPV 11.2, I mmature Gran % (Auto) 1.000 H, Neut % (Auto) 79.8 H, Lymph % (Auto) 7.1 L, [place] % (Auto) 10.3 H, Eos % (Auto) 1.2, Baso % (Auto) 0.6, Absolute Neuts (auto) 7.6, Absolute Lymphs (auto) 0.67 L, Nucleated RBC % 0, Sodium 139, Potassium 3.3, Chloride 107, Carbon Dioxide 21.6, Anion Gap 10, BUN 8, Creatinine 0.69 L, Estim Creat Clear Calc 133.42, Est GFR (MDRD) Non-Af 104, BUN/Creatinine Ratio 11.0, G lucose 189 H, Calcium 7.9, Total Bilirubin 0.43, AST 12, ALT 6, Alkaline Phosphatase 65, Total Protein 5.0 L, Albumin 2.4 L, Globulin 2.6, Albumin/Globulin Ratio 0.9 12/20/24 06:07: POC Glucose 156 H Micro: Microbiology 12/16/24 02:51 Sputum, Induced/Lukens Gram Stain - Final 12/16/24 02:51 Sputum, Induced/Lukens Respiratory Culture - Final Streptococcus agalactiae (B) 12/16/24 00:50 Blood Culture (Wb) - Left Wrist Blood Culture - Preliminary No growth in 48 hours. 12/16/24 00:40 Blood Culture (Wb) - Anticubital Right Blood Culture - Preliminary No growth in 48 hours. ABG Data ABG results: ABG 12/20/24 05:02 Specimen Type ART Sample Site L Radial pH 7.45 Bicarbonate Actual 20.8 L Total CO2 22 Base Excess -3 L O2 Saturation 93 L O2 % 35.0 ABG pCO2 30.2 L ABG pO2 64 L Trevon Test N/A Respiration Rate 16 O2 Delivery Device Adult Vent Vent Mode AC Tidal Volume 450.0 POC PEEP 5 Radiography Diagnostic Testing: Radiology Impression Chest X-Ray 12/20/24 04:30 IMPRESSION: Diffuse pulmonary densities with pleural effusions suggestive of pulmonary edema or CHF. Reading Location: [facility] Rhythm Strip Rhythm Strip: Sinus Rhythm Rate: 76 Ectopy: None Physical Exam Const Constitutional Narrative: awake on vent. HEENT head/scalp atraumatic Resp Resp Narrative: coarse breath sounds bilaterally. Cardio regular rate and regular rhythm GI GI Narrative: non-pitting lower extremity edema. Neuro Sensorium / Orientation: awake and alert Assessment & Plan Assessment/Plan (1) Perforated abdominal viscus: PLAN: s/p ex-lap w resection with anastamosis. mgmt per general surgery. OG tube in place. abx w cipro and metronidazole [facility] has ordered TPN. (2) Streptococcal pneumonia: PLAN: group G strep in sputum with the ongoing fever will broaden abx to meropenem and vancomycin (dc ciprofloxacin) repeat blood cultures. PLAN: Plan Respiratory failure: still on the vent. sedation w dexmedetomidine and fentanyl. CCM following. CXR showing pulmonary vascular edema. furosemide ordered. DM2: glucose in 200s. Continue glargine and SSI. Septic shock: still on norepinephrine. 2/2 perforated viscous. HTN: amlodipine held given shock. VTE prophylaxis: per primary service. Charges/Coding Visit Charges Inpatient E&M: 60978 Subs Hosp L2
[2024-12-20] MEDS: Budesonide Respules 0.5 MG/2 ML AMPUL.NEB. INHALATION ×2 (07:10→16:56)
[2024-12-20] MEDS: Meropenem 1 GM in 0.9% Normal Saline (100mL MB+) 100 ML IV ×3 (08:55→21:46)
[2024-12-20] MEDS: Norepinephrine 8 MG in 0.9% Normal Saline (250mL Bag) 242 ML 3.8 MG CONT INF (09:00)
[2024-12-20] MEDS: Furosemide 20 MG/2 ML VIAL IV ×3 (09:29→21:35)
[2024-12-20] MEDS: Vancomycin HCl 2,000 MG in 0.9% Normal Saline (500mL Bag) 500 ML 250 MG IV (09:30)
[2024-12-20] MEDS: Insulin Glargine-YFGN 100 UNIT/ML Pen 40 UNIT SC (09:46)
--- NOTE | 2024-12-20 09:48 | PCM.RX.CS ---
Consult Antibiotic Management Pharmacy has been consulted to manage selected antibiotic: Vancomycin Type of Intervention Type of Consult: New start Suspected Infection Suspected Infection: Other (EMPIRIC/IA) Prior Doses of Antibiotics Prior Doses of Antibiotics Received/Current Regimen: Vancomycin 2000 mg IV x 1 given 12/20/24 @ 0930 Labs Labs: Sodium 139 mmol/L (133-145) 12/20/24 05:50 Potassium 3.3 mmol/L (3.3-5.1) 12/20/24 05:50 Chloride 107 mmol/L (98-108) 12/20/24 05:50 Carbon Dioxide 21.6 mmol/L (21.0-32.0) 12/20/24 05:50 Anion Gap 10 (5-15) 12/20/24 05:50 BUN 8 mg/dL (4-19) 12/20/24 05:50 Creatinine 0.69 mg/dL (0.70-1.20) L 12/20/24 05:50 Est GFR (MDRD) Non-Af 104 (>60) 12/20/24 05:50 BUN/Creatinine Ratio 11.0 RATIO (10-20) 12/20/24 05:50 Glucose 189 mg/dL (70-99) H 12/20/24 05:50 Microbiology Microbiology: Microbiology 12/16/24 02:51 Sputum, Induced/Lukens Gram Stain - Final 12/16/24 02:51 Sputum, Induced/Lukens Respiratory Culture - Final Streptococcus agalactiae (B) 12/16/24 00:50 Blood Culture (Wb) - Left Wrist Blood Culture - Preliminary No growth in 48 hours. 12/16/24 00:40 Blood Culture (Wb) - Anticubital Right Blood Culture - Preliminary No growth in 48 hours. Dosing Weight Weight used for dosin kg Estimated Creatinine Clearance Estimated Creatinine Clearance: ~ 133 Goal Trough Goal Trough: 15-20 mcg/mL Pharmacy Plan for Drug Dosing Pharmacy Plan for Drug Dosing: Vancomycin 2000 mg IV x 1 followed by 1500 mg Q8H Pharmacy Service will continue to monitor and adjust dosing as required. Follow-Up Labs Follow-Up Labs: Trough: Vancomycin Date/Time Labs Ordered Labs to be done on [date and time ordered]: 12/21/24 @ 0900
[2024-12-20] MEDS: Chlorhexidine 15 ML PO (09:59)
--- NOTE | 2024-12-20 10:06 | PN.SURG_ITS ---
Subjective Subjective Patient remains intubated. Objective Data Objective Data Vital Signs: Vital Signs Temp Pulse Resp BP Pulse Ox O2 Del Method O2 Flow Rate 100.3 F H 88 18 119/60 97 Mechanical Ventilator 35 12/20/24 09:00 12/20/24 09:00 12/20/24 09:00 12/20/24 09:00 12/20/24 09:00 12/20/24 09:00 12/20/24 04:00 FiO2 35 12/20/24 07:11 Oxygen Flow Rate (L/min) 35 Oxygen Delivery Method Mechanical Ventilator Weight: 278 lb 10.629 oz Body Mass Index (BMI) 47.5 Intake & Output: Intake and Output for Last 24 Hours 12/18/24 12/19/24 12/20/24 23:59 23:59 23:59 Intake Total 2849.24 / 2870.34 4418.05 / 4439.15 337.65 / 337.65 Output Total 1800 / 2100 3250 / 3250 1000 / 1000 Balance 1049.24 / 770.34 1168.05 / 1189.15 -662.35 / -662.35 Lab / Micro Data 12/20/24 05:50 12/20/24 05:50 Labs: Laboratory Results - last 24 hr 12/19/24 11:23: POC Glucose 195 H 12/19/24 17:07: POC Glucose 176 H 12/20/24 00:35: POC Glucose 166 H 12/20/24 05:30: WBC Cancelled, Corrected WBC Cancelled, RBC Cancelled, Hgb Cancelled, Hct Cancelled, MCV Cancelled, MCH Cancelled, MCHC Cancelled, RDW Std Deviation Cancelled, RDW Coeff of David Cancelled, Plt Count Cancelled, MPV Cancelled, Immature Gran % (Auto) Cancelled, Neut % (Auto) Cancelled, Lymph % (Auto) Cancelled, [place] % (Auto) Cancelled, Eos % (Auto) Cancelled, Baso % (Auto) Cancelled, Absolute Neuts (auto) Cancelled, Absolute Lymphs (auto) Cancelled, Total Counted Cancelled, Neutrophils % (Manual) Cancelled, Band Neutrophils % Cancelled, Lymphocytes % (Manual) Cancelled, Monocytes % (Manual) Cancelled, Eosinophils % (Manual) Cancelled, Basophils % (Manual) Cancelled, Metamyelocytes % Cancelled, Myelocytes % Cancelled, Promyelocytes % Cancelled, Blast Cells % Cancelled, Plasma Cell % (Manual) Cancelled, Other Cells % Cancelled, Nucleated RBC % Cancelled, Nucleated RBCs/100 WBC Cancelled, Differential Comment Cancelled, Diff Path Review Cancelled, Hypersegmented Neuts Cancelled, Atypical Lymphocytes Cancelled, Reactive Lymphocytes Cancelled, Smudge Cells Cancelled, Toxic Granulation Cancelled, Toxic Vacuolation Cancelled, Dohle Bodies Cancelled, Wilfredo Rods Cancelled, Platelet Estimate Cancelled, Plt Morphology Comment Cancelled, RBC Morphology Cancelled 12/20/24 05:30: RBC Morphology Cancelled, Polychromasia Cancelled, Hypochromasia Cancelled, Basophilic Stippling Cancelled, Anisocytosis Cancelled, Microcytosis Cancelled, Macrocytosis Cancelled, Spherocytes Cancelled, Sickle Cells Cancelled, Target Cells Cancelled, Tear Drop Cells Cancelled, Ovalocytes Cancelled, Stomatocytes Cancelled, Mckay-[place]elle Bodies Cancelled, [place] Cells Cancelled, Bite Cells Cancelled, Crenated Cell Cancelled, Acanthocytes (Spur) Cancelled, Rouleaux Cancelled, Schistocytes Cancelled, Sodium Cancelled, Potassium Cancelled, Chloride Cancelled, Carbon Dioxide Cancelled, Anion Gap Cancelled, BUN Cancelled, Creatinine Cancelled, Estim Creat Clear Calc Cancelled, Est GFR (MDRD) Non-Af Cancelled, BUN/Creatinine Ratio Cancelled, Glucose Cancelled, Calcium Cancelled, Total Bilirubin Cancelled, AST Cancelled, ALT Cancelled, Alkaline Phosphatase Cancelled, Total Protein Cancelled, Albumin Cancelled, Globulin Cancelled, Albumin/Globulin Ratio Cancelled 12/20/24 05:50: WBC 9.5, RBC 4.60, Hgb 13.7, Hct 40.9, MCV 88.9, MCH 29.8, MCHC 33.5, RDW Std Deviation 42.9, RDW Coeff of David 13.1, Plt Count 181, MPV 11.2, I mmature Gran % (Auto) 1.000 H, Neut % (Auto) 79.8 H, Lymph % (Auto) 7.1 L, [place] % (Auto) 10.3 H, Eos % (Auto) 1.2, Baso % (Auto) 0.6, Absolute Neuts (auto) 7.6, Absolute Lymphs (auto) 0.67 L, Nucleated RBC % 0, Sodium 139, Potassium 3.3, Chloride 107, Carbon Dioxide 21.6, Anion Gap 10, BUN 8, Creatinine 0.69 L, Estim Creat Clear Calc 133.42, Est GFR (MDRD) Non-Af 104, BUN/Creatinine Ratio 11.0, G lucose 189 H, Calcium 7.9, Total Bilirubin 0.43, AST 12, ALT 6, Alkaline Phosphatase 65, Total Protein 5.0 L, Albumin 2.4 L, Globulin 2.6, Albumin/Globulin Ratio 0.9 12/20/24 06:07: POC Glucose 156 H Micro: Microbiology 12/16/24 02:51 Sputum, Induced/Lukens Gram Stain - Final 12/16/24 02:51 Sputum, Induced/Lukens Respiratory Culture - Final Streptococcus agalactiae (B) 12/16/24 00:50 Blood Culture (Wb) - Left Wrist Blood Culture - Preliminary No growth in 48 hours. 12/16/24 00:40 Blood Culture (Wb) - Anticubital Right Blood Culture - Preliminary No growth in 48 hours. ABG Data ABG results: ABG 12/20/24 05:02 Specimen Type ART Sample Site L Radial pH 7.45 Bicarbonate Actual 20.8 L Total CO2 22 Base Excess -3 L O2 Saturation 93 L O2 % 35.0 ABG pCO2 30.2 L ABG pO2 64 L Trevon Test N/A Respiration Rate 16 O2 Delivery Device Adult Vent Vent Mode AC Tidal Volume 450.0 POC PEEP 5 Radiography Diagnostic Testing: Radiology Impression Chest X-Ray 12/20/24 04:30 IMPRESSION: Diffuse pulmonary densities with pleural effusions suggestive of pulmonary edema or CHF. Reading Location: [facility] Rhythm Strip Rhythm Strip: Sinus Rhythm Rate: 76 Ectopy: None Physical Exam Const no apparent distress Resp normal respiratory effort GI soft to palpation and non-tender Assessment & Plan Assessment/Plan (1) Streptococcal pneumonia: (2) Perforated abdominal viscus: PLAN: Plan Patient remains intubated. Hopeful for extubation soon. Start TPN today if okay with hospitalist and settlement technician. Ordered a PICC line. White count is normal. Hemoglobin stable. Continue antibiotics for the pneumonia. Continue Zazueta for urine output management. Raj Stevenson MD Pager: [facility] [place] [facility] [address] [place] [address], [address] [place] [address] Office:
[2024-12-20] MEDS: Pantoprazole Sodium 40 MG in 0.9% Normal Saline (100mL MB+) 100 ML 330 MG IV ×2 (11:52→21:42)
[2024-12-20] MEDS: fentaNYL drip 100 ML 7.5 MCG CONT INF (12:33)
--- NOTE | 2024-12-20 12:53 | PCM.PN.TICU ---
Objective Data Objective Data Vital Signs: Vital Signs Last response Temperature 37.9 C H 12/20/24 09:00 Temperature Source Core 12/20/24 09:00 Pulse Rate 96 12/20/24 12:05 Pulse Strength Weak (1+) 12/19/24 22:00 Respiratory Rate 35 H 12/20/24 12:05 Respiratory Effort Mechanically Ventilated 12/20/24 04:00 Respiratory Depth Normal 12/20/24 04:00 Respiratory Pattern Tachypnea 12/20/24 12:05 Blood Pressure 119/60 12/20/24 09:00 Blood Pressure Mean 79 12/20/24 09:00 Blood Pressure Source Monitor 12/20/24 09:00 Blood Pressure Position Semi-Fowlers 12/20/24 09:00 Blood Pressure Location Right Arm 12/20/24 09:00 Baseline BP 129/88 12/16/24 00:15 Pulse Ox 95 12/20/24 12:05 Oxygen Delivery Method Mechanical Ventilator 12/20/24 09:00 Oxygen Flow Rate (L/min) 35 12/20/24 04:00 Fraction of Inspired Oxygen (FIO2) 35 12/20/24 07:11 I&O: I&O Last 24 Hours 12/19/24 12/20/24 12/20/24 23:59 11:59 23:59 Intake Total 1410.52 / 4439.15 337.65 / 1077.65 740 / 1077.65 Output Total 1750 / 3250 1000 / 1000 Balance -339.48 / 1189.15 -662.35 / 77.65 740 / 77.65 I&O: Total Stay 12/15/24 17:38 thru 12/20/24 12:38 Intake Total 08509.88 Output Total 34250 Balance 6903.88 Current Meds Ordered / Administered: Current meds ordered / Administered Generic Name Dose Route Start Last Admin Trade Name Freq PRN Reason Stop Dose Admin Albuterol Sulfate 2.5 mg 12/15/24 23:37 Albuterol 2.5 Mg/3 Ml Vial.Neb. INHALATION Q2H PRN PRN Dyspnea, wheezing Albuterol/Ipratropium 3 ml 12/16/24 02:15 12/20/24 12:05 Ipratropium/Albuterol Sulfate 3 Ml Ampul.Neb INHALATION 3 ml Q6H.RT MAINE Administration Budesonide 0.5 mg 12/15/24 23:45 12/20/24 07:10 Budesonide Respules 0.5 Mg/2 Ml Ampul.Neb. INHALATION 0.5 mg BID.RT MAINE Administration Chlorhexidine Gluconate 15 ml 12/16/24 10:00 12/20/24 09:59 Chlorhexidine 15 Ml PO 15 ml BID MAINE Administration Chlorhexidine Gluconate 1 each 12/16/24 10:00 12/20/24 04:53 Chlorhexidine Gluc 2% Cloth 1 Each [place] TOPICAL 1 each DAILY MAINE Administration Fentanyl Citrate 50 - 100 mcg 12/15/24 23:22 Fentanyl 100 Mcg/2 Ml Ampul IV Q2H PRN PRN Pain Score 1-10 Furosemide 20 mg 12/20/24 09:15 12/20/24 09:29 Furosemide 20 Mg/2 Ml Vial IV 20 mg Q8 MAINE Administration Protocol Glucagon 1 mg 12/15/24 23:36 Glucagon 1 Mg/Ml Syringe IM X1 PRN Hypoglycemia Protocol Heparin Sodium (Porcine) 5,000 unit 12/17/24 14:00 12/20/24 06:14 Heparin Injection (Vial) 5,000 Unit/Ml Vial SC 5,000 unit Q8 MAINE Administration Hydralazine HCl 10 mg 12/15/24 23:37 Hydralazine 20 Mg/Ml Vial IV Q4H PRN PRN SBP > 160 Protocol Dextrose 250 mls @ 0 mls/hr 12/15/24 23:36 Dextrose 10%-Water IV .Q0M PRN HYPOGLYCEMIA Protocol As Directed Pantoprazole Sodium 40 mg/ 100 mls @ 330 mls/hr 12/15/24 23:40 12/20/24 12:38 Sodium Chloride IV Infused Q12 MAINE Infusion Fentanyl 100 mls @ 2.5 mls/hr 12/15/24 23:40 12/20/24 07:00 CONT INF 50 mcg/hr UD MAINE 5 mls/hr Protocol Titration 25 MCG/HR Sodium Chloride 250 mls @ 15 mls/hr 12/16/24 01:04 IV .[id number] PRN Saline Flush Sodium Chloride 250 mls @ 15 mls/hr 12/16/24 01:04 IV .[id number] PRN Additional IVPB Infusion Dexmedetomidine HCl 400 mcg/ 100 mls @ 15.8 mls/hr 12/17/24 08:30 12/20/24 12:35 Sodium Chloride CONT INF Not Given .Q6H20M [facility] Protocol 0.5 MCG/KG/HR Norepinephrine Bitartrate 8 mg 250 mls @ 9.375 mls/hr 12/18/24 05:05 12/20/24 09:00 / Sodium Chloride CONT INF 2 mcg/min .[id number] MAINE 3.8 mls/hr Protocol Administration 5 MCG/MIN Meropenem 1 gm/ Sodium 100 mls @ 33 mls/hr 12/20/24 07:30 12/20/24 12:00 Chloride IV Infused Q8 MAINE Infusion Vancomycin IV-PHARMACY TO DOSE 500 mls @ 250 mls/hr 12/20/24 07:13 1 each/ Sodium Chloride IV PRN PRN Rx to Dose Protocol Vancomycin HCl 1,500 mg/ 530 mls @ 250 mls/hr 12/20/24 17:30 Sodium Chloride IV Q8H MAINE Multivitamins 10 ml/ Zinc/ 2,011.2 mls @ 84 mls/hr 12/20/24 16:00 Copper/Manganese/Selenium 1 ml IV 12/21/24 03:54 / Folic Acid 1 mg/ Total .[id number] [facility] Parenteral Nutrition Fat Emulsion Intravenous 250 mls @ 21 mls/hr 12/20/24 16:00 Intralipid 20% IV 12/21/24 03:54 .[id number] [facility] Insulin Glargine 40 unit 12/19/24 10:00 12/20/24 09:46 Insulin Glargine-Yfgn 100 Unit/Ml Pen SC 40 unit DAILY [facility] Administration Insulin Human Lispro 0 unit 12/16/24 00:00 12/20/24 11:45 Insulin Lispro 100 Unit/Ml Insuln.Pen SC 2 u Q6 MAINE Administration Protocol Sodium Chloride 10 - 40 ml 12/15/24 23:22 12/19/24 22:52 0.9% Saline Lock 10 Ml Syringe IV 20 ml UD PRN Administration SALINE FLUSH Sodium Chloride 10 - 40 ml 12/15/24 23:22 0.9% Saline Lock 10 Ml Syringe IV UD PRN SALINE FLUSH Sodium Chloride 10 - 40 ml 12/16/24 01:04 0.9% Saline Lock 10 Ml Syringe IV UD PRN SALINE FLUSH Vancomycin Protocol 1 lab 12/21/24 08:00 Vancomycin Trough/Random Due 12/21/24 10:00 DAILY [facility] Lab / Micro Data 12/20/24 05:50 12/20/24 05:50 Labs: Laboratory Results - last 24 hr 12/19/24 17:07: POC Glucose 176 H 12/20/24 00:35: POC Glucose 166 H 12/20/24 05:30: WBC Cancelled, Corrected WBC Cancelled, RBC Cancelled, Hgb Cancelled, Hct Cancelled, MCV Cancelled, MCH Cancelled, MCHC Cancelled, RDW Std Deviation Cancelled, RDW Coeff of David Cancelled, Plt Count Cancelled, MPV Cancelled, Immature Gran % (Auto) Cancelled, Neut % (Auto) Cancelled, Lymph % (Auto) Cancelled, [place] % (Auto) Cancelled, Eos % (Auto) Cancelled, Baso % (Auto) Cancelled, Absolute Neuts (auto) Cancelled, Absolute Lymphs (auto) Cancelled, Total Counted Cancelled, Neutrophils % (Manual) Cancelled, Band Neutrophils % Cancelled, Lymphocytes % (Manual) Cancelled, Monocytes % (Manual) Cancelled, Eosinophils % (Manual) Cancelled, Basophils % (Manual) Cancelled, Metamyelocytes % Cancelled, Myelocytes % Cancelled, Promyelocytes % Cancelled, Blast Cells % Cancelled, Plasma Cell % (Manual) Cancelled, Other Cells % Cancelled, Nucleated RBC % Cancelled, Nucleated RBCs/100 WBC Cancelled, Differential Comment Cancelled, Diff Path Review Cancelled, Hypersegmented Neuts Cancelled, Atypical Lymphocytes Cancelled, Reactive Lymphocytes Cancelled, Smudge Cells Cancelled, Toxic Granulation Cancelled, Toxic Vacuolation Cancelled, Dohle Bodies Cancelled, Wilfredo Rods Cancelled, Platelet Estimate Cancelled, Plt Morphology Comment Cancelled, RBC Morphology Cancelled 12/20/24 05:30: RBC Morphology Cancelled, Polychromasia Cancelled, Hypochromasia Cancelled, Basophilic Stippling Cancelled, Anisocytosis Cancelled, Microcytosis Cancelled, Macrocytosis Cancelled, Spherocytes Cancelled, Sickle Cells Cancelled, Target Cells Cancelled, Tear Drop Cells Cancelled, Ovalocytes Cancelled, Stomatocytes Cancelled, Mckay-Melbeta Bodies Cancelled, [place] Cells Cancelled, Bite Cells Cancelled, Crenated Cell Cancelled, Acanthocytes (Spur) Cancelled, Rouleaux Cancelled, Schistocytes Cancelled, Sodium Cancelled, Potassium Cancelled, Chloride Cancelled, Carbon Dioxide Cancelled, Anion Gap Cancelled, BUN Cancelled, Creatinine Cancelled, Estim Creat Clear Calc Cancelled, Est GFR (MDRD) Non-Af Cancelled, BUN/Creatinine Ratio Cancelled, Glucose Cancelled, Calcium Cancelled, Total Bilirubin Cancelled, AST Cancelled, ALT Cancelled, Alkaline Phosphatase Cancelled, Total Protein Cancelled, Albumin Cancelled, Globulin Cancelled, Albumin/Globulin Ratio Cancelled 12/20/24 05:50: WBC 9.5, RBC 4.60, Hgb 13.7, Hct 40.9, MCV 88.9, MCH 29.8, MCHC 33.5, RDW Std Deviation 42.9, RDW Coeff of David 13.1, Plt Count 181, MPV 11.2, Immature Gran % (Auto) 1.000 H, Neut % (Auto) 79.8 H, Lymph % (Auto) 7.1 L, [place] % (Auto) 10.3 H, Eos % (Auto) 1.2, Baso % (Auto) 0.6, Absolute Neuts (auto) 7.6, Absolute Lymphs (auto) 0.67 L, Nucleated RBC % 0, Sodium 139, Potassium 3.3, Chloride 107, Carbon Dioxide 21.6, Anion Gap 10, BUN 8, Creatinine 0.69 L, Estim Creat Clear Calc 133.42, Est GFR (MDRD) Non-Af 104, BUN/Creatinine Ratio 11.0, Glucose 189 H, Calcium 7.9, Total Bilirubin 0.43, AST 12, ALT 6, Alkaline Phosphatase 65, Total Protein 5.0 L, Albumin 2.4 L, Globulin 2.6, Albumin/Globulin Ratio 0.9 12/20/24 06:07: POC Glucose 156 H 12/20/24 11:44: POC Glucose 159 H Micro: Microbiology 12/16/24 02:51 Sputum, Induced/Lukens Gram Stain - Final 12/16/24 02:51 Sputum, Induced/Lukens Respiratory Culture - Final Streptococcus agalactiae (B) ABG Data ABG results: ABG 12/20/24 05:02 Specimen Type ART Sample Site L Radial pH 7.45 Bicarbonate Actual 20.8 L Total CO2 22 Base Excess -3 L O2 Saturation 93 L O2 % 35.0 ABG pCO2 30.2 L ABG pO2 64 L Trevon Test N/A Respiration Rate 16 O2 Delivery Device Adult Vent Vent Mode AC Tidal Volume 450.0 POC PEEP 5 Rhythm Strip Rhythm Strip: Sinus Rhythm Rate: 76 Ectopy: None Imaging Radiology Impression Chest X-Ray 12/20/24 04:30 IMPRESSION: Diffuse pulmonary densities with pleural effusions suggestive of pulmonary edema or CHF. Reading Location: [facility] Assessment and Plan . Assessment and plan: Exam: G- Obese, alert, following commands ENT- ETT in place CV- rrr nl s1 s2 no mrg L- CTA in sync with vent Ab- s nt nd + bs Ext- + edema Neuro- moves all extremities Assessment/Plan #Acute postoperative respiratory failure #SB perforation sp exlap resection & re-anastomosis POD #3 #Shock/hypotension #Lactic acidosis- resolved #Acute normocytic anemia #Acute thrombocytopenia #DM -Did well on SBT today (RSBI on the upper end of acceptable range); trial extubation -Start diuresis as tolerated; third spaced significant amount of fluid -Start TPN for nutritional support Cont emp IV Abx; F/U Cx; monitor temp curve/WBC/band % -Cont strict I/Os -Cont NGT to LIWS, awaiting return of bowel function -Monitor blood counts -Cont SSI & uptitrate LA insulin as needed; goal ICU BG ~140-200 md/dL NPO LMWH, PPI Guarded prognosis Critical Care Time: 52 minutes The entirety of this encounter was done via Telemedicine Subjective Subjective Off sedation, including precedex this AM. Alert/calm.
[2024-12-20] MEDS: 0.9% Saline Lock 10 ML Syringe IV ×2 (15:20→18:38)
[2024-12-20] MEDS: fentaNYL 100 MCG/2 ML Ampul IV ×4 (15:54→22:49)
[2024-12-20] MEDS: TPN - Clinimix E 8%-14% Soln 2,000 ML with Multivitamins 10 ML, Trace Elements 1 ML, Fo... 84 ML IV (17:46)
[2024-12-20] MEDS: Vancomycin HCl 1,500 MG in 0.9% Normal Saline (500mL Bag) 500 ML 250 MG IV (18:34)
[2024-12-21] VITALS (41 sets, daily range): BP systolic 72–158; BP diastolic 47–102; PULSE 55–180; RESP 19–36; TEMP 36.2–37.7; O2SAT 78–100; BMI 46.3
[2024-12-21] MEDS: fentaNYL 100 MCG/2 ML Ampul IV ×5 (02:05→23:16)
[2024-12-21] MEDS: Vancomycin HCl 1,500 MG in 0.9% Normal Saline (500mL Bag) 500 ML 250 MG IV ×3 (02:09→17:34)
[2024-12-21 05:01] LABS: Hematocrit 39.8 % (40-54); Hemoglobin 13.5 g/dL (13.0-16.5); Immature Granulocytes Count 0.080 X10^3/uL (0.0-0.0); Mean Corp Hgb Conc 33.9 g/dL (32-36); Mean Corpuscular Volume 100.3 fL (80-94); Mean Platelet Vol. 12.0 fl (6.2-12.0); NRBC Flagged by Analyzer 0 % (0-5); POSITIVE DIFFERENTIAL YES; Platelet Count 150 K/mm3 (150-450); RBC Distribution Width CV 13.5 % (11.6-14.6); RBC Distribution Width SD 50.3 fl (35.1-43.9); Red Blood Count 3.97 M/mm3 (4.6-6.2); White Blood Count 9.4 K/mm3 (4.4-11.0)
[2024-12-21] MEDS: Meropenem 1 GM in 0.9% Normal Saline (100mL MB+) 100 ML IV ×3 (05:07→21:55)
[2024-12-21] MEDS: Heparin Injection (Vial) 5,000 UNIT/ML VIAL 5000 UNIT SC ×3 (05:13→21:51)
[2024-12-21] MEDS: CHLORHEXIDINE GLUC 2% CLOTH 1 EACH TOWELETTE TOPICAL (05:16)
[2024-12-21] MEDS: Furosemide 20 MG/2 ML VIAL IV ×3 (05:16→23:29)
[2024-12-21 07:30] LABS: Triglycerides 166 mg/dL
[2024-12-21 07:32] LABS: AST(SGOT) 26 U/L (<=37); Alanine Aminotransfer ALT/SGPT 8 U/L (<=46); Albumin, Serum 2.5 g/dL (3.4-4.8); Alkaline Phosphatase 64 U/L (40-129); Anion Gap 11 (5-15); BUN 14 mg/dL (4-19); BUN/Creat Ratio 18.7 RATIO (10-20); Calcium,Total 8.0 mg/dL (7.6-11.0); Carbon Dioxide 25.2 mmol/L (21.0-32.0); Chloride 103 mmol/L (98-108); Estimated Creatinine Clearance 119.21 ml/min (50-250); Globulin 3.0 g/dL (2.2-4.2); Glucose 345 mg/dL (70-99); Potassium 3.0 mmol/L (3.3-5.1)
[2024-12-21] MEDS: Budesonide Respules 0.5 MG/2 ML AMPUL.NEB. INHALATION (07:55)
[2024-12-21 09:02] LABS: Vancomycin, Trough Level 18.7 ug/mL (5.0-15.0)
--- NOTE | 2024-12-21 09:14 | PCM.RX.CS ---
Consult Antibiotic Management Pharmacy has been consulted to manage selected antibiotic: Vancomycin Type of Intervention Type of Consult: Follow-up Labs Labs: Sodium 139 mmol/L (133-145) 12/21/24 06:50 Potassium 3.0 mmol/L (3.3-5.1) L 12/21/24 06:50 Chloride 103 mmol/L (98-108) 12/21/24 06:50 Carbon Dioxide 25.2 mmol/L (21.0-32.0) 12/21/24 06:50 Anion Gap 11 (5-15) 12/21/24 06:50 BUN 14 mg/dL (4-19) 12/21/24 06:50 Creatinine 0.76 mg/dL (0.70-1.20) 12/21/24 06:50 Est GFR (MDRD) Non-Af 101 (>60) 12/21/24 06:50 BUN/Creatinine Ratio 18.7 RATIO (10-20) 12/21/24 06:50 Glucose 345 mg/dL (70-99) H 12/21/24 06:50 Vancomycin Trough 18.7 ug/mL (5.0-15.0) H 12/21/24 08:05 Microbiology Microbiology: Microbiology 12/16/24 00:50 Blood Culture (Wb) - Left Wrist Blood Culture - Final No growth in 5 days. 12/16/24 00:40 Blood Culture (Wb) - Anticubital Right Blood Culture - Final No growth in 5 days. 12/16/24 02:51 Sputum, Induced/Lukens Gram Stain - Final 12/16/24 02:51 Sputum, Induced/Lukens Respiratory Culture - Final Streptococcus agalactiae (B) Goal Trough Goal Trough: 15-20 mcg/mL Pharmacy Plan for Drug Dosing Pharmacy Plan for Drug Dosing: VANCOMYCIN LEVEL RECEIVED Current Vancomycin Dose: 1500mg IV Q8h Number of Doses Received: 3 (loading + 2 scheduled) Vancomycin Level: 18.7 (goal 15-20) Hours Since Last Dose: 6hr Renal Function: scr 0.76/ crcl 119 ml/min Renal Function Trend: stable Lab/Micro: SCx growing strep spp Vancomycin Plan/Comments: Patient had a trough drawn which resulted in a value of 18.7 (goal 15-20). The patient is within therapeutic goal for vancomycin dosing. Will continue current regimen and recheck a trough in 24hrs. Pending Level: 12/22/24 @0800 Pharmacy Service will continue to monitor and adjust dosing as required.
--- NOTE | 2024-12-21 09:25 | PN.HOSP_ITS ---
Subjective Subjective NGT unintentionally removed this AM. Denies complaints. Objective Data Objective Data Vital Signs: Vital Signs Temp Pulse Resp BP Pulse Ox O2 Del Method O2 Flow Rate 37.2 C 102 H 30 H 138/57 H 98 Nasal Cannula 4.5 12/21/24 07:00 12/21/24 07:55 12/21/24 07:55 12/21/24 07:00 12/21/24 07:55 12/21/24 07:55 12/21/24 07:55 FiO2 5 12/21/24 02:00 Oxygen Flow Rate (L/min) 4.5 Oxygen Delivery Method Nasal Cannula Weight: 123 kg Body Mass Index (BMI) 46.3 Intake & Output: Intake and Output for Last 24 Hours 12/19/24 12/20/24 12/21/24 23:59 23:59 23:59 Intake Total 4418.05 / 4439.15 1861.95 / 1861.95 961.35 / 961.35 Output Total 3250 / 3250 3000 / 3000 4450 / 4450 Balance 1168.05 / 1189.15 -1138.05 / -1138.05 -3488.65 / -3488.65 Lab / Micro Data 12/21/24 04:50 12/21/24 06:50 Labs: Laboratory Results - last 24 hr 12/20/24 11:44: POC Glucose 159 H 12/20/24 18:51: POC Glucose 175 H 12/21/24 00:37: POC Glucose 266 H 12/21/24 04:50: WBC 9.4, RBC 3.97 L, Hgb 13.5, Hct 39.8 L, MCV 100.3 H D, MCH 34.0 H, MCHC 33.9, RDW Std Deviation 50.3 H, RDW Coeff of David 13.5, Plt Count 150, MPV 12.0, Immature Gran % (Auto) 0.900, Neut % (Auto) 81.7 H, Lymph % (Auto) 5.5 L, [place] % (Auto) 9.2, Eos % (Auto) 2.0, Baso % (Auto) 0.7, Absolute Neuts (auto) 7.7, Absolute Lymphs (auto) 0.52 L, Nucleated RBC % 0, Sodium Cancelled, Potassium Cancelled, Chloride Cancelled, Carbon Dioxide Cancelled, Anion Gap Cancelled, BUN Cancelled, Creatinine Cancelled, Estim Creat Clear Calc Cancelled, Est GFR (MDRD) Non-Af Cancelled, BUN/Creatinine Ratio Cancelled, Glucose Cancelled, Calcium Cancelled, Total Bilirubin Cancelled, AST Cancelled, ALT Cancelled, Alkaline Phosphatase Cancelled, Total Protein Cancelled, Albumin Cancelled, Globulin Cancelled, Albumin/Globulin Ratio Cancelled, Triglycerides Cancelled 12/21/24 05:12: POC Glucose 295 H 12/21/24 06:50: Sodium 139, Potassium 3.0 L, Chloride 103, Carbon Dioxide 25.2, Anion Gap 11, BUN 14, Creatinine 0.76, Estim Creat Clear Calc 119.21, Est GFR (MDRD) Non-Af 101, BUN/Creatinine Ratio 18.7, Glucose 345 H, Calcium 8.0, Total Bilirubin 0.33, AST 26, ALT 8, Alkaline Phosphatase 64, Total Protein 5.5 L, A lbumin 2.5 L, Globulin 3.0, Albumin/Globulin Ratio 0.8 L, Triglycerides 166 12/21/24 08:05: Vancomycin Trough 18.7 H Micro: Microbiology 12/16/24 00:50 Blood Culture (Wb) - Left Wrist Blood Culture - Final No growth in 5 days. 12/16/24 00:40 Blood Culture (Wb) - Anticubital Right Blood Culture - Final No growth in 5 days. 12/16/24 02:51 Sputum, Induced/Lukens Gram Stain - Final 12/16/24 02:51 Sputum, Induced/Lukens Respiratory Culture - Final Streptococcus agalactiae (B) Rhythm Strip Rhythm Strip: Sinus Rhythm Rate: 76 Ectopy: None Physical Exam Const alert and no apparent distress Constitutional Narrative: hoarse voice. non-toxic. making jokes (though difficult to understand him) HEENT head/scalp atraumatic and moist oral mucous membranes Resp normal respiratory effort, no retractions, no use of accessory muscles and clear to auscultation bilaterally Cardio regular rate, regular rhythm, S1 normal heart sound and S2 normal heart sound Assessment & Plan Assessment/Plan (1) Perforated abdominal viscus: PLAN: s/p ex-lap w resection with anastamosis. mgmt per general surgery. abx have been changed to meropenem and vancomycin now with ileus, mgmt per GS. on TPN (2) Streptococcal pneumonia: PLAN: group G strep in sputum Fever appears to have abated with broadening of abx to meropenem and vancomycin (dc'd ciprofloxacin and metronidazole) repeat blood cultures pending. BCx from the have been negative. PLAN: Plan Respiratory failure: exubated on 12/20. still on the vent. sedation w dexmedetomidine and fentanyl. CCM following. CXR showing pulmonary vascular edema. furosemide ordered. DM2: Continue glargine and SSI. Septic shock: wean off of norepinephrine on 12/20. 2/2 perforated viscous. HTN: amlodipine held given shock. VTE prophylaxis: per primary service. With the patient currently off pressors and extubated on nasal canula, it may be reasonable to transfer patient to a lower level of care. Will defer to the surgery service. Charges/Coding Visit Charges Inpatient E&M: 73808 Subs Hosp L2
[2024-12-21] MEDS: 0.9% Saline Lock 10 ML Syringe IV ×3 (09:27→23:10)
[2024-12-21] MEDS: Pantoprazole Sodium 40 MG in 0.9% Normal Saline (100mL MB+) 100 ML 330 MG IV (10:00)
[2024-12-21] MEDS: Insulin Glargine-YFGN 100 UNIT/ML Pen 40 UNIT SC (10:53)
--- NOTE | 2024-12-21 12:51 | PCM.PN.SRG ---
Subjective Subjective Patient seen and evaluated on rounds this morning. Patient was extubated yesterday and seems to be tolerating extubation well. Nursing staff does state that patient did have bowel movement within the past 24 hours. He does not recall any passage of flatus since extubation. Patient was working with physical therapy this morning and NG tube was dislodged and came out. He denies any nausea or vomiting since removal of NG tube Objective Data Objective Data Vital Signs: Vital Signs Temp Pulse Resp BP Pulse Ox O2 Del Method O2 Flow Rate 99.7 F H 105 H 24 H 158/63 H 100 Nasal Cannula 3 12/21/24 12:00 12/21/24 12:00 12/21/24 12:00 12/21/24 12:00 12/21/24 12:00 12/21/24 12:00 12/21/24 12:00 FiO2 5 12/21/24 02:00 Oxygen Flow Rate (L/min) 3 Oxygen Delivery Method Nasal Cannula Weight: 271 lb 2.697 oz Body Mass Index (BMI) 46.3 Intake & Output: Intake and Output for Last 24 Hours 12/19/24 12/20/24 12/21/24 23:59 23:59 23:59 Intake Total 4418.05 / 4439.15 1861.95 / 1861.95 1061.35 / 1061.35 Output Total 3250 / 3250 3000 / 3000 4700 / 4700 Balance 1168.05 / 1189.15 -1138.05 / -1138.05 -3638.65 / -3638.65 Lab / Micro Data 12/21/24 04:50 12/21/24 06:50 Labs: Laboratory Results - last 24 hr 12/20/24 18:51: POC Glucose 175 H 12/21/24 00:37: POC Glucose 266 H 12/21/24 04:50: WBC 9.4, RBC 3.97 L, Hgb 13.5, Hct 39.8 L, MCV 100.3 H D, MCH 34.0 H, MCHC 33.9, RDW Std Deviation 50.3 H, RDW Coeff of David 13.5, Plt Count 150, MPV 12.0, Immature Gran % (Auto) 0.900, Neut % (Auto) 81.7 H, Lymph % (Auto) 5.5 L, [place] % (Auto) 9.2, Eos % (Auto) 2.0, Baso % (Auto) 0.7, Absolute Neuts (auto) 7.7, Absolute Lymphs (auto) 0.52 L, Nucleated RBC % 0, Sodium Cancelled, Potassium Cancelled, Chloride Cancelled, Carbon Dioxide Cancelled, Anion Gap Cancelled, BUN Cancelled, Creatinine Cancelled, Estim Creat Clear Calc Cancelled, Est GFR (MDRD) Non-Af Cancelled, BUN/Creatinine Ratio Cancelled, Glucose Cancelled, Calcium Cancelled, Total Bilirubin Cancelled, AST Cancelled, ALT Cancelled, Alkaline Phosphatase Cancelled, Total Protein Cancelled, Albumin Cancelled, Globulin Cancelled, Albumin/Globulin Ratio Cancelled, Triglycerides Cancelled 12/21/24 05:12: POC Glucose 295 H 12/21/24 06:50: Sodium 139, Potassium 3.0 L, Chloride 103, Carbon Dioxide 25.2, Anion Gap 11, BUN 14, Creatinine 0.76, Estim Creat Clear Calc 119.21, Est GFR (MDRD) Non-Af 101, BUN/Creatinine Ratio 18.7, Glucose 345 H, Calcium 8.0, Total Bilirubin 0.33, AST 26, ALT 8, Alkaline Phosphatase 64, Total Protein 5.5 L, Albumin 2.5 L, Globulin 3.0, Albumin/Globulin Ratio 0.8 L, Triglycerides 166 12/21/24 08:05: Vancomycin Trough 18.7 H 12/21/24 10:52: POC Glucose 337 H Micro: Microbiology 12/16/24 00:50 Blood Culture (Wb) - Left Wrist Blood Culture - Final No growth in 5 days. 12/16/24 00:40 Blood Culture (Wb) - Anticubital Right Blood Culture - Final No growth in 5 days. 12/16/24 02:51 Sputum, Induced/Lukens Gram Stain - Final 12/16/24 02:51 Sputum, Induced/Lukens Respiratory Culture - Final Streptococcus agalactiae (B) Rhythm Strip Rhythm Strip: Sinus Rhythm Rate: 76 Ectopy: None Physical Exam Narrative He is awake and alert. No acute distress. Abdomen is soft and obese. Minimal if any tenderness to palpation. Incision appears clean dry and intact with maite in place Assessment & Plan Assessment/Plan (1) Perforated abdominal viscus: PLAN: Plan The patient is a 64-year-old male who is status post a recent exploratory laparotomy for small bowel perforation. Patient was just extubated yesterday and seems to be doing well. Patient with prolonged ileus. Nurse does note positive bowel movement but no documented passage of flatus. NG tube was dislodged this morning. I have advised nursing staff to leave NG tube out for now. If nausea vomiting or bloating develop, then NG tube can always be replaced. Continue n.p.o. with TPN. Would recommend at least 1 more day in the ICU. Could consider transfer out tomorrow
--- NOTE | 2024-12-21 14:57 | PN.CC_ITS ---
Objective Data Objective Data Vital Signs: Vital Signs Last response 3 Temperature 37.6 C H 12/21/24 12:00 Temperature Source Core 12/21/24 12:00 Pulse Rate 100 12/21/24 13:47 Pulse Strength Weak (1+) 12/20/24 22:00 Respiratory Rate 28 H 12/21/24 13:47 Respiratory Effort Normal, Non-Labored 12/21/24 08:00 Respiratory Depth Normal 12/21/24 08:00 Respiratory Pattern Normal 12/21/24 08:00 Blood Pressure 158/63 H 12/21/24 12:00 Blood Pressure Mean 94 12/21/24 12:00 Blood Pressure Source Monitor 12/21/24 12:00 Blood Pressure Position Semi-Fowlers 12/21/24 12:00 Blood Pressure Location Right Arm 12/21/24 12:00 Baseline BP 129/88 12/16/24 00:15 Pulse Ox 100 12/21/24 12:00 Oxygen Delivery Method Nasal Cannula 12/21/24 13:47 Oxygen Flow Rate (L/min) 3 12/21/24 13:47 Fraction of Inspired Oxygen (FIO2) 5 12/21/24 02:00 I&O: I&O Last 24 Hours 3 12/20/24 12/21/24 12/21/24 23:59 11:59 23:59 Intake Total 1494.20 / 1861.95 961.35 / 1591.35 630 / 1591.35 Output Total 1000 / 3000 4450 / 4700 250 / 4700 Balance 494.20 / -1138.05 -3488.65 / -3108.65 380 / -3108.65 I&O: Total Stay 3 12/15/24 17:38 thru 12/21/24 12:58 Intake Total .53 Output Total 39093 Balance 2579.53 Current Meds Ordered / Administered: Current meds ordered / Administered 3 Generic Name Dose Route Start Last Admin Trade Name Freq PRN Reason Stop Dose Admin Albuterol Sulfate 2.5 mg 12/15/24 23:37 Albuterol 2.5 Mg/3 Ml Vial.Neb. INHALATION Q2H PRN PRN Dyspnea, wheezing Albuterol/Ipratropium 3 ml 12/16/24 02:15 12/21/24 13:47 Ipratropium/Albuterol Sulfate 3 Ml Ampul.Neb INHALATION 3 ml Q6H.RT MAINE Administration Budesonide 0.5 mg 12/15/24 23:45 12/21/24 07:55 Budesonide Respules 0.5 Mg/2 Ml Ampul.Neb. INHALATION 0.5 mg BID.RT MAINE Administration Chlorhexidine Gluconate 1 each 12/16/24 10:00 12/21/24 05:16 Chlorhexidine Gluc 2% Cloth 1 Each [place]lette TOPICAL 1 each DAILY MAINE Administration Fentanyl Citrate 50 - 100 mcg 12/15/24 23:22 12/21/24 09:27 Fentanyl 100 Mcg/2 Ml Ampul IV 100 mcg Q2H PRN PRN Administration Pain Score 1-10 Furosemide 20 mg 12/20/24 09:15 12/21/24 14:18 Furosemide 20 Mg/2 Ml Vial IV 20 mg Q8 MAINE Administration Protocol Glucagon 1 mg 12/15/24 23:36 Glucagon 1 Mg/Ml Syringe IM X1 PRN Hypoglycemia Protocol Heparin Sodium (Porcine) 5,000 unit 12/17/24 14:00 12/21/24 14:18 Heparin Injection (Vial) 5,000 Unit/Ml Vial SC 5,000 unit Q8 MAINE Administration Hydralazine HCl 10 mg 12/15/24 23:37 Hydralazine 20 Mg/Ml Vial IV Q4H PRN PRN SBP > 160 Protocol Dextrose 250 mls @ 0 mls/hr 12/15/24 23:36 Dextrose 10%-Water IV .Q0M PRN HYPOGLYCEMIA Protocol As Directed Pantoprazole Sodium 40 mg/ 100 mls @ 330 mls/hr 12/15/24 23:40 12/21/24 12:26 Sodium Chloride IV Infused Q12 MAINE Infusion Sodium Chloride 250 mls @ 15 mls/hr 12/16/24 01:04 IV .[id number] PRN Saline Flush Sodium Chloride 250 mls @ 15 mls/hr 12/16/24 01:04 IV .[id number] PRN Additional IVPB Infusion Norepinephrine Bitartrate 8 mg 250 mls @ 9.375 mls/hr 12/18/24 05:05 12/21/24 12:25 / Sodium Chloride CONT INF Not Given .[id number] MAINE Protocol 5 MCG/MIN Meropenem 1 gm/ Sodium 100 mls @ 33 mls/hr 12/20/24 07:30 12/21/24 14:16 Chloride IV 33 mls/hr Q8 [facility] Administration Vancomycin IV-PHARMACY TO DOSE 500 mls @ 250 mls/hr 12/20/24 07:13 1 each/ Sodium Chloride IV PRN PRN Rx to Dose Protocol Vancomycin HCl 1,500 mg/ 530 mls @ 250 mls/hr 12/20/24 17:30 12/21/24 12:58 Sodium Chloride IV Infused Q8H [facility] Infusion Multivitamins 10 ml/ Zinc/ 1,011.2 mls @ 42 mls/hr 12/21/24 16:00 Copper/Manganese/Selenium 1 ml IV 12/22/24 15:47 / Folic Acid 1 mg/ Total .Q24H [facility] Parenteral Nutrition Insulin Glargine 40 unit 12/19/24 10:00 12/21/24 10:53 Insulin Glargine-Yfgn 100 Unit/Ml Pen SC 40 unit DAILY MAINE Administration Insulin Human Lispro 0 unit 12/16/24 00:00 12/21/24 10:53 Insulin Lispro 100 Unit/Ml Insuln.Pen SC 8 u Q6 [facility] Administration Protocol Sodium Chloride 10 - 40 ml 12/15/24 23:22 12/21/24 09:27 0.9% Saline Lock 10 Ml Syringe IV 40 ml UD PRN Administration SALINE FLUSH Sodium Chloride 10 - 40 ml 12/15/24 23:22 0.9% Saline Lock 10 Ml Syringe IV UD PRN SALINE FLUSH Sodium Chloride 10 - 40 ml 12/16/24 01:04 0.9% Saline Lock 10 Ml Syringe IV UD PRN SALINE FLUSH Vancomycin Protocol 1 lab 12/22/24 08:00 Vancomycin Trough/Random Due MC 12/22/24 10:00 DAILY [facility] Lab / Micro Data Attestation: I reviewed the patient's lab results. 12/21/24 04:50 12/21/24 06:50 Labs: Laboratory Results - last 24 hr 12/20/24 18:51: POC Glucose 175 H 12/21/24 00:37: POC Glucose 266 H 12/21/24 04:50: WBC 9.4, RBC 3.97 L, Hgb 13.5, Hct 39.8 L, MCV 100.3 H D, MCH 34.0 H, MCHC 33.9, RDW Std Deviation 50.3 H, RDW Coeff of David 13.5, Plt Count 150, MPV 12.0, Immature Gran % (Auto) 0.900, Neut % (Auto) 81.7 H, Lymph % (Auto) 5.5 L, [place] % (Auto) 9.2, Eos % (Auto) 2.0, Baso % (Auto) 0.7, Absolute Neuts (auto) 7.7, Absolute Lymphs (auto) 0.52 L, Nucleated RBC % 0, Sodium Cancelled, Potassium Cancelled, Chloride Cancelled, Carbon Dioxide Cancelled, Anion Gap Cancelled, BUN Cancelled, Creatinine Cancelled, Estim Creat Clear Calc Cancelled, Est GFR (MDRD) Non-Af Cancelled, BUN/Creatinine Ratio Cancelled, Glucose Cancelled, Calcium Cancelled, Total Bilirubin Cancelled, AST Cancelled, ALT Cancelled, Alkaline Phosphatase Cancelled, Total Protein Cancelled, Albumin Cancelled, Globulin Cancelled, Albumin/Globulin Ratio Cancelled, Triglycerides Cancelled 12/21/24 05:12: POC Glucose 295 H 12/21/24 06:50: Sodium 139, Potassium 3.0 L, Chloride 103, Carbon Dioxide 25.2, Anion Gap 11, BUN 14, Creatinine 0.76, Estim Creat Clear Calc 119.21, Est GFR (MDRD) Non-Af 101, BUN/Creatinine Ratio 18.7, Glucose 345 H, Calcium 8.0, Total Bilirubin 0.33, AST 26, ALT 8, Alkaline Phosphatase 64, Total Protein 5.5 L, A lbumin 2.5 L, Globulin 3.0, Albumin/Globulin Ratio 0.8 L, Triglycerides 166 12/21/24 08:05: Vancomycin Trough 18.7 H 12/21/24 10:52: POC Glucose 337 H Micro: Microbiology 12/16/24 00:50 Blood Culture (Wb) - Left Wrist Blood Culture - Final No growth in 5 days. 12/16/24 00:40 Blood Culture (Wb) - Anticubital Right Blood Culture - Final No growth in 5 days. Rhythm Strip Rhythm Strip: Sinus Rhythm Rate: 76 Ectopy: None Assessment and Plan . Assessment and plan: #Acute postoperative respiratory failure, resolved #SB perforation sp ex-lap resection & re-anastomosis POD #4 - minimal signs of bowel function yet - continued NGT output related to ileus #Shock/hypotension, resolved #Acute normocytic anemia #Acute thrombocytopenia #DM - Cont. diuresis as tolerated - Start TPN for nutritional support - Cont emp IV Abx; -Cont strict I/Os -Cont NGT to LIWS, -defer to GS if enteral analgesics make sense given current amount of NGT output NPO LMWH, PPI Critical Care Time: 50 minutes The entirety of this encounter was done via Telemedicine Physical Exam Const alert, oriented x3 and no apparent distress HEENT normocephalic Mouth: OG tube in place Neck full ROM Resp normal respiratory effort Cardio S1 normal heart sound and S2 normal heart sound GI Inspection: abdominal distention and incision Subjective Subjective Extubated yesterday, principle issues surround nutrition support and pain control. No convincing evidence of bowel function yet.
[2024-12-21] MEDS: TRACE ELEMENTS IV (16:11)
[2024-12-21] MEDS: [UNRECOGNIZED DRUG - OTHER] IV (16:11)
[2024-12-21] MEDS: MULTIVITAMINS IV (16:11)
[2024-12-21] MEDS: 0.9% Normal Saline (250mL Bag) 250 ML 15 ML IV (20:23)
--- NOTE | 2024-12-21 21:26 | PCM.HOSP.N ---
Hospitalist Note Called for HR in the 170's with A-Fib with RVR. Has history but DOAC on hold 2/2 surgery. Doesnt appear to be on rate control at baseline. BP stable with SBP 130. Stat dose of metoprolol 5 mg and then start metoprolol 50 mg po bid.
[2024-12-21] MEDS: Norepinephrine 8 MG in 0.9% Normal Saline (250mL Bag) 242 ML 9.4 MG CONT INF (22:19)
--- NOTE | 2024-12-21 22:34 | RAD_ITS ---
PROCEDURE: CHEST 1 VIEW (PORTABLE) 12/21/2024 REASON FOR EXAM: HYPOXIA TECHNIQUE: Frontal view of the chest. COMPARISON: 12/20/2024 FINDINGS: Interval extubation. Stable cardiomegaly with vascular congestion. Slightly increased small-moderate bilateral layering pleural effusions likely with adjacent atelectasis. No pneumothorax. Degenerative changes of the spine. Sternotomy wires. RAD/Chest 1 View (Portable) IMPRESSION: Cardiomegaly with vascular congestion. Slight interval increase and small-moderate bilateral pleural effusions. Reading Location: [id number]
[2024-12-21] MEDS: Amiodarone 150 MG in Dextrose 5%-Water (100mL Bag) 100 ML 600 MG IV BOLUS (22:47)
--- NOTE | 2024-12-21 22:52 | EKG12_ITS ---
Test Reason : AF Blood Pressure : */* mmHG Vent. Rate : 171 BPM Atrial Rate : * BPM P-R Int : * ms QRS Dur : 92 ms QT Int : 296 ms P-R-T Axes : * -38 118 degrees QTcB Int : 499 ms Critical Test Result: High HR Atrial fibrillation with rapid ventricular response Left axis deviation ST & T wave abnormality, consider lateral ischemia Abnormal ECG When compared with ECG of 15-Dec-2024 17:57, Atrial fibrillation has replaced Sinus rhythm Vent. rate has increased by [address] now depressed in Lateral leads Confirmed by Dwight Johnston ([id number]), newspaper or periodical editor JESUSITA ROQUE ([id number]) on 12/23/2024 10:35:36 AM Referred By: Confirmed By: Dwight Johnston
[2024-12-21] MEDS: Amiodarone 360 MG in Dextrose 5% Viaflo Bag 192.8 ML 16.7 MG CONT INF (22:58)
[2024-12-21] MEDS: Calcium Chloride IV 1 GM in 0.9% Normal Saline (100mL Bag) 100 ML IV (23:02)
[2024-12-21 23:03] LABS: D-Dimer Quantitative (DVT/PE) < 0.27 FEU/ug/m (0.27-0.49)
[2024-12-21] MEDS: LACTATED RINGERS 500 ML 999 ML IV (23:03)
[2024-12-21 23:06] LABS: Base Excess 1 mmol/L (-2 to +2); FI02 6.0; PO2 64 mmHG (75-100); SITE L Radial; SO2 93 % (94-98)
[2024-12-21 23:17] LABS: Magnesium 1.6 mg/dL (1.5-2.2); Troponin T High Sensitivity 20 ng/L (<=22)
[2024-12-21 23:36] LABS: Potassium 2.7 mmol/L (3.3-5.1)
[2024-12-22] VITALS (48 sets, daily range): BP systolic 81–134; BP diastolic 50–113; PULSE 77–174; RESP 20–86; TEMP 36.7–37.7; O2SAT 90–99; BMI 46.6
[2024-12-22] MEDS: Potassium Chloride 20mEq/100mL 20 MEQ/100 ML IV.SOLN. 100 MEQ IV BOLUS ×2 (00:35→01:34)
[2024-12-22] MEDS: Magnesium Sulfate 2 GM in Dextrose 5%-Water (100mL Bag) 100 ML IV (00:42)
[2024-12-22] MEDS: Potassium Chloride Oral Tablet 20 MEQ 40 MEQ PO (01:36)
[2024-12-22] MEDS: Vancomycin HCl 1,500 MG in 0.9% Normal Saline (500mL Bag) 500 ML 250 MG IV (03:29)
[2024-12-22 04:01] LABS: Hematocrit 43.5 % (40-54); Hemoglobin 14.8 g/dL (13.0-16.5); Immature Granulocytes Count 0.210 X10^3/uL (0.0-0.0); Mean Corp Hgb Conc 34.0 g/dL (32-36); Mean Corpuscular Volume 88.6 fL (80-94); Mean Platelet Vol. 11.4 fl (6.2-12.0); NRBC Flagged by Analyzer 0 % (0-5); Platelet Count 272 K/mm3 (150-450); RBC Distribution Width CV 13.2 % (11.6-14.6); RBC Distribution Width SD 42.9 fl (35.1-43.9); Red Blood Count 4.91 M/mm3 (4.6-6.2); White Blood Count 14.9 K/mm3 (4.4-11.0)
[2024-12-22] MEDS: 0.9% Saline Lock 10 ML Syringe IV ×2 (05:30→06:07)
[2024-12-22] MEDS: Heparin Injection (Vial) 5,000 UNIT/ML VIAL 5000 UNIT SC ×3 (05:59→20:58)
[2024-12-22] MEDS: Meropenem 1 GM in 0.9% Normal Saline (100mL MB+) 100 ML IV ×3 (05:59→21:26)
[2024-12-22] MEDS: Furosemide 20 MG/2 ML VIAL IV ×3 (06:00→20:58)
[2024-12-22 06:31] LABS: Anion Gap 11 (5-15); BUN 19 mg/dL (4-19); BUN/Creat Ratio 27.5 RATIO (10-20); Calcium,Total 8.2 mg/dL (7.6-11.0); Carbon Dioxide 24.0 mmol/L (21.0-32.0); Chloride 107 mmol/L (98-108); Estimated Creatinine Clearance 129.43 ml/min (50-250); Glucose 390 mg/dL (70-99); Magnesium 2.0 mg/dL (1.5-2.2); Potassium 3.6 mmol/L (3.3-5.1)
[2024-12-22] MEDS: Budesonide Respules 0.5 MG/2 ML AMPUL.NEB. INHALATION ×2 (07:19→19:18)
[2024-12-22 08:52] LABS: Vancomycin, Trough Level 37.0 ug/mL (5.0-15.0)
--- NOTE | 2024-12-22 09:07 | PCM.PN.HOSP ---
Subjective Subjective Overnight patient had new onset A-fib with RVR with high rates and hypotension requiring cardioversion under sedation, see Dr. Khan's overnight note for further details. Saw patient at bedside this morning. Nursing had just finished shifting patient in bed when I saw him. He was reporting abdominal discomfort but notably abdomen was soft and nondistended on palpation. He remained on BiPAP and was breathing comfortably on this. No other new concerns today. Objective Data Objective Data Vital Signs: Vital Signs Temp Pulse Resp BP Pulse Ox O2 Del Method O2 Flow Rate 98.1 F 114 H 28 H 110/65 94 Nasal Cannula 3 12/22/24 00:00 12/22/24 06:00 12/22/24 08:00 12/22/24 06:00 12/22/24 08:00 12/22/24 08:00 12/22/24 08:00 FiO2 45 12/22/24 06:00 Oxygen Flow Rate (L/min) 3 Oxygen Delivery Method Nasal Cannula Weight: 123.2 kg Body Mass Index (BMI) 46.6 Intake & Output: Intake and Output for Last 24 Hours 12/20/24 12/21/24 12/22/24 23:59 23:59 23:59 Intake Total 1861.95 / 1861.95 4903.46 / 4923.22 1412.76 / 1412.76 Output Total 3000 / 3000 6200 / 6800 1600 / 1600 Balance -1138.05 / -1138.05 -1296.54 / -1876.78 -187.24 / -187.24 Lab / Micro Data 12/22/24 03:40 12/22/24 05:50 Labs: Laboratory Results - last 24 hr 12/21/24 10:52: POC Glucose 337 H 12/21/24 17:33: POC Glucose 351 H 12/21/24 22:40: D-Dimer Quant (PE/DVT) < 0.27 L, Potassium 2.7 L*, Magnesium 1.6, Troponin T High Sens 20 D 12/22/24 01:55: POC Glucose 346 H 12/22/24 03:40: WBC 14.9 H, RBC 4.91, Hgb 14.8, Hct 43.5, MCV 88.6 D, MCH 30.1, MCHC 34.0, RDW Std Deviation 42.9, RDW Coeff of David 13.2, Plt Count 272, MPV 11.4, Immature Gran % (Auto) 1.400 H, Neut % (Auto) 84.4 H, Lymph % (Auto) 4.9 L, [place] % (Auto) 7.3, Eos % (Auto) 1.4, Baso % (Auto) 0.6, Absolute Neuts (auto) 12.6 H, Absolute Lymphs (auto) 0.73 L, Nucleated RBC % 0, Sodium Cancelled, Potassium Cancelled, Chloride Cancelled, Carbon Dioxide Cancelled, Anion Gap Cancelled, BUN Cancelled, Creatinine Cancelled, Estim Creat Clear Calc Cancelled, Est GFR (MDRD) Non-Af Cancelled, BUN/Creatinine Ratio Cancelled, Glucose Cancelled, Calcium Cancelled, Magnesium Cancelled 12/22/24 05:24: POC Glucose 344 H 12/22/24 05:50: Sodium 141, Potassium 3.6, Chloride 107, Carbon Dioxide 24.0, Anion Gap 11, BUN 19, Creatinine 0.70, Estim Creat Clear Calc 129.43, Est GFR (MDRD) Non-Af 104, BUN/Creatinine Ratio 27.5 H, Glucose 390 H, Calcium 8.2, Magnesium 2.0 12/22/24 08:13: Vancomycin Trough 37.0 H Micro: Microbiology 12/16/24 00:50 Blood Culture (Wb) - Left Wrist Blood Culture - Final No growth in 5 days. 12/16/24 00:40 Blood Culture (Wb) - Anticubital Right Blood Culture - Final No growth in 5 days. 12/16/24 02:51 Sputum, Induced/Lukens Gram Stain - Final 12/16/24 02:51 Sputum, Induced/Lukens Respiratory Culture - Final Streptococcus agalactiae (B) ABG Data ABG results: ABG 12/21/24 23:02 Specimen Type ART Sample Site L Radial pH 7.42 Bicarbonate Actual 25.7 Total CO2 27 Base Excess 1 O2 Saturation 93 L O2 % 6.0 ABG pCO2 39.4 ABG pO2 64 L O2 Delivery Device Cannula Vent Mode Not entered Radiography Diagnostic Testing: Radiology Impression Chest X-Ray 12/21/24 22:34 IMPRESSION: Cardiomegaly with vascular congestion. Slight interval increase and small-moderate bilateral pleural effusions. Reading Location: [facility] Rhythm Strip Rhythm Strip: Sinus Rhythm Rate: 76 Ectopy: None Physical Exam Const alert and no apparent distress Constitutional Narrative: On BiPAP. Nontoxic appearing. HEENT head/scalp atraumatic and moist oral mucous membranes Resp normal respiratory effort, no retractions, no use of accessory muscles and clear to auscultation bilaterally Cardio regular rate, regular rhythm, S1 normal heart sound and S2 normal heart sound Assessment & Plan Assessment/Plan (1) Perforated abdominal viscus: (2) Streptococcal pneumonia: (3) Paroxysmal atrial fibrillation with RVR: PLAN: Plan Patient is a 64-year-old male who presented to [facility] ED on 12/15/2024 with abdominal pain. Found to have pneumoperitoneum on CT imaging. Admitted under general surgery service and medicine consulted for assistance with medical management. Perforated abdominal viscus ?S/p ex-lap w resection with anastamosis. ?mgmt per general surgery. ?abx have been changed to meropenem and vancomycin ?Now with ileus, mgmt per GS. ?On TPN 12/22: Abdomen soft and nondistended, remains mildly tender to palpation. No evidence of bowel function yet. Continue TPN. Further management per surgery. Streptococcal pneumonia ?Group G strep in sputum ?Fever appears to have abated with broadening of abx to meropenem and vancomycin (dc'd ciprofloxacin and metronidazole) ?Repeat blood cultures pending. BCx from the have been negative. 12/22: Repeat blood cultures from 12/20 remain pending. Continue antibiotics as above. Paroxysmal A-fib with RVR ?Developed A-fib RVR with rate to the 170s overnight on 12/21. Has history of paroxysmal A-fib, DOAC was on hold secondary to recent surgery. Was initiated on p.o. Lopressor and given a dose of IV Lopressor but unfortunately became hypotensive and had worsening respiratory status. Thus, patient underwent DCCV under conscious sedation with conversion back to sinus rhythm with rate to the 90s. Given amiodarone bolus and initiated on amiodarone drip. Required low-dose Levophed during cardioversion and shortly afterward, weaned off by morning 12/22. 12/22: Sinus tachycardia to the 100s to 110s noted. Will continue amiodarone drip at 0.5 mg/h through this evening then transition to p.o. Lopressor 25 mg twice daily. Continue cardiac monitoring. Respiratory failure, improving: extubated on 12/20. CCM following. CXR on 12/21 showing pulmonary vascular edema. Continue IV Lasix 20 mg every 8 hours. Improving, now on 3 L nasal cannula with oxygen saturations in the mid 90s on 12/22. DM2: Continue glargine and SSI. Hyperglycemia with sugars to the 350s noted on the morning of 12/22. Initiated Humalog 8 units every 6 hours in addition to sliding scale insulin. Continue glargine as previous. Monitor sugars. Septic shock: wean off of norepinephrine on 12/20. 2/2 perforated viscous. HTN: amlodipine held given shock. VTE prophylaxis: per primary service. Total clinical time spent by myself addressing the patient's medical issues, reviewing all the data, and collaborating with patient's care team: 42 minutes. Charges/Coding Visit Charges Inpatient E&M: 96147 Subs Hosp L2
--- NOTE | 2024-12-22 10:18 | PCM.RX.CS ---
Consult Antibiotic Management Pharmacy has been consulted to manage selected antibiotic: Vancomycin Type of Intervention Type of Consult: Follow-up Labs Labs: Sodium 141 mmol/L (133-145) 12/22/24 05:50 Potassium 3.6 mmol/L (3.3-5.1) 12/22/24 05:50 Chloride 107 mmol/L (98-108) 12/22/24 05:50 Carbon Dioxide 24.0 mmol/L (21.0-32.0) 12/22/24 05:50 Anion Gap 11 (5-15) 12/22/24 05:50 BUN 19 mg/dL (4-19) 12/22/24 05:50 Creatinine 0.70 mg/dL (0.70-1.20) 12/22/24 05:50 Est GFR (MDRD) Non-Af 104 (>60) 12/22/24 05:50 BUN/Creatinine Ratio 27.5 RATIO (10-20) H 12/22/24 05:50 Glucose 390 mg/dL (70-99) H 12/22/24 05:50 Vancomycin Trough 37.0 ug/mL (5.0-15.0) H 12/22/24 08:13 Microbiology Microbiology: Microbiology 12/16/24 00:50 Blood Culture (Wb) - Left Wrist Blood Culture - Final No growth in 5 days. 12/16/24 00:40 Blood Culture (Wb) - Anticubital Right Blood Culture - Final No growth in 5 days. 12/16/24 02:51 Sputum, Induced/Lukens Gram Stain - Final 12/16/24 02:51 Sputum, Induced/Lukens Respiratory Culture - Final Streptococcus agalactiae (B) Goal Trough Goal Trough: 15-20 mcg/mL Pharmacy Plan for Drug Dosing Pharmacy Plan for Drug Dosing: VANCOMYCIN LEVEL RECEIVED Current Vancomycin Dose: 1500mg IV Q8h Number of Doses Received: 5 (of current regimen) Vancomycin Level: 37 Hours Since Last Dose: 4.75hr --> the dose due 12/22 @0130 was administered 12/22 @0329 (2hrs late) and the trough was drawn 45min early (due @0900, drawn @0813). Renal Function: scr 0.7/ Crcl 129 mL/min Renal Function Trend: stable Lab/Micro: No new Vancomycin Plan/Comments: The patient had a trough drawn which resulted in a value of 37 (goal 15-20). This trough is not a true trough d/t late administration of the previous dose and a early trough draw by 45minute, but the true trough is likely still above 20. Will hold vancomycin and recheck a trough when 2 doses from now would be due. Once trough is <20, will resume vancomycin per protocol Pending Level: *RANDOM* 12/23/24 @0100 Pharmacy Service will continue to monitor and adjust dosing as required.
[2024-12-22] MEDS: Amiodarone 360 MG in Dextrose 5% Viaflo Bag 192.8 ML 16.7 MG CONT INF (10:27)
[2024-12-22] MEDS: Pantoprazole Sodium 40 MG in 0.9% Normal Saline (100mL MB+) 100 ML 330 MG IV ×2 (11:22→21:00)
[2024-12-22] MEDS: CHLORHEXIDINE GLUC 2% CLOTH 1 EACH TOWELETTE TOPICAL (11:23)
[2024-12-22] MEDS: Insulin Glargine-YFGN 100 UNIT/ML Pen 40 UNIT SC (11:28)
--- NOTE | 2024-12-22 12:11 | PN.SURG_ITS ---
Subjective Subjective Patient seen and evaluated on rounds this morning. Also discussed with RN. Events of overnight noted?patient went into A-fib RVR and required cardioversion. Patient is stable and doing well at present. No complaints of nausea or vomiting. When asked about flatus, he did not give a definitive response. He denies any bowel movement. Objective Data Objective Data Vital Signs: Vital Signs Temp Pulse Resp BP Pulse Ox O2 Del Method O2 Flow Rate 98.1 F 114 H 28 H 110/65 91 Nasal Cannula 2 12/22/24 00:00 12/22/24 07:17 12/22/24 08:00 12/22/24 06:00 12/22/24 09:40 12/22/24 09:40 12/22/24 09:40 FiO2 40 12/22/24 07:17 Oxygen Flow Rate (L/min) 2 Oxygen Delivery Method Nasal Cannula Weight: 271 lb 9.752 oz Body Mass Index (BMI) 46.6 Intake & Output: Intake and Output for Last 24 Hours 12/20/24 12/21/24 12/22/24 23:59 23:59 23:59 Intake Total 1861.95 / 1861.95 4903.46 / 4923.22 / Output Total 3000 / 3000 6200 / 6800 1600 / 1600 Balance -1138.05 / -1138.05 -1296.54 / -1876.78 417.03 / 417.03 Lab / Micro Data 12/22/24 03:40 12/22/24 05:50 Labs: Laboratory Results - last 24 hr 12/21/24 17:33: POC Glucose 351 H 12/21/24 22:40: D-Dimer Quant (PE/DVT) < 0.27 L, Potassium 2.7 L*, Magnesium 1.6, Troponin T High Sens 20 D 12/22/24 01:55: POC Glucose 346 H 12/22/24 03:40: WBC 14.9 H, RBC 4.91, Hgb 14.8, Hct 43.5, MCV 88.6 D, MCH 30.1, MCHC 34.0, RDW Std Deviation 42.9, RDW Coeff of David 13.2, Plt Count 272, MPV 11.4, Immature Gran % (Auto) 1.400 H, Neut % (Auto) 84.4 H, Lymph % (Auto) 4.9 L , [place] % (Auto) 7.3, Eos % (Auto) 1.4, Baso % (Auto) 0.6, Absolute Neuts (auto) 12.6 H, Absolute Lymphs (auto) 0.73 L, Nucleated RBC % 0, Sodium Cancelled, Potassium Cancelled, Chloride Cancelled, Carbon Dioxide Cancelled, Anion Gap Cancelled, BUN Cancelled, Creatinine Cancelled, Estim Creat Clear Calc Cancelled, Est GFR (MDRD) Non-Af Cancelled, BUN/Creatinine Ratio Cancelled, Glucose Cancelled, Calcium Cancelled, Magnesium Cancelled 12/22/24 05:24: POC Glucose 344 H 12/22/24 05:50: Sodium 141, Potassium 3.6, Chloride 107, Carbon Dioxide 24.0, Anion Gap 11, BUN 19, Creatinine 0.70, Estim Creat Clear Calc 129.43, Est GFR (MDRD) Non-Af 104, BUN/Creatinine Ratio 27.5 H, Glucose 390 H, Calcium 8.2, Magnesium 2.0 12/22/24 08:13: Vancomycin Trough 37.0 H 12/22/24 11:27: POC Glucose 208 H Micro: Microbiology 12/16/24 00:50 Blood Culture (Wb) - Left Wrist Blood Culture - Final No growth in 5 days. 12/16/24 00:40 Blood Culture (Wb) - Anticubital Right Blood Culture - Final No growth in 5 days. 12/16/24 02:51 Sputum, Induced/Lukens Gram Stain - Final 12/16/24 02:51 Sputum, Induced/Lukens Respiratory Culture - Final Streptococcus agalactiae (B) ABG Data ABG results: ABG 12/21/24 23:02 Specimen Type ART Sample Site L Radial pH 7.42 Bicarbonate Actual 25.7 Total CO2 27 Base Excess 1 O2 Saturation 93 L O2 % 6.0 ABG pCO2 39.4 ABG pO2 64 L O2 Delivery Device Cannula Vent Mode Not entered Radiography Diagnostic Testing: Radiology Impression Chest X-Ray 12/21/24 22:34 IMPRESSION: Cardiomegaly with vascular congestion. Slight interval increase and small-moderate bilateral pleural effusions. Reading Location: [id number] Rhythm Strip Rhythm Strip: Sinus Rhythm Rate: 76 Ectopy: None Physical Exam Narrative He is awake and alert. No acute distress. Abdomen is soft and obese. Mild distention. Mild appropriate tenderness to palpation. Incision appears clean dry and intact with maite still in place Assessment & Plan Assessment/Plan (1) Perforated abdominal viscus: PLAN: Plan The patient is a 64-year-old male who is status post a recent exploratory laparotomy for small bowel perforation. Patient has recently been extubated and seems to be doing well. Patient with prolonged ileus. No obvious evidence to suggest return of bowel function at this point. NG tube was inadvertently removed during therapy yesterday. Patient seems stable without NG tube. This can always be replaced if nausea or vomiting develops. Continue n.p.o. with TPN until more definitive evidence to suggest return of bowel function Would recommend continued observation in ICU especially given A-fib/RVR last night Patient requesting pain medication. I gave the okay to do Tylenol with a sip of water as he was recently taken off of fentanyl. Agree with removal of fentanyl at this point to help minimize ileus and improve return of bowel function Dr. Stevenson to return tomorrow
--- NOTE | 2024-12-22 14:29 | PCM.PN.TICU ---
Objective Data Objective Data Vital Signs: Vital Signs Last response Temperature 37.7 C H 12/22/24 14:00 Temperature Source Core 12/22/24 14:00 Pulse Rate 97 12/22/24 14:00 Pulse Strength Weak (1+) 12/20/24 22:00 Respiratory Rate 24 H 12/22/24 14:00 Respiratory Effort Normal, Non-Labored 12/22/24 12:00 Respiratory Depth Normal 12/22/24 12:00 Respiratory Pattern Normal 12/22/24 12:00 Blood Pressure 128/57 H 12/22/24 14:00 Blood Pressure Mean 80 12/22/24 14:00 Blood Pressure Source Monitor 12/22/24 14:00 Blood Pressure Position Semi-Fowlers 12/22/24 14:00 Blood Pressure Location Right Arm 12/22/24 14:00 Baseline BP 129/113 12/22/24 00:00 Pulse Ox 92 12/22/24 14:00 Oxygen Delivery Method Nasal Cannula 12/22/24 14:00 Oxygen Flow Rate (L/min) 3 12/22/24 14:00 Fraction of Inspired Oxygen (FIO2) 3 12/22/24 11:00 EtCo2 - Document during CPR and with ROSC 40 12/22/24 00:32 I&O: I&O Last 24 Hours 12/21/24 12/22/24 12/22/24 23:59 11:59 23:59 Intake Total 3942.11 / 4923.22 Output Total 1750 / 6800 1600 / 2200 600 / 2200 Balance 2192.11 / -1876.78 417.03 / -182.97 -600 / -182.97 I&O: Total Stay 12/15/24 17:38 thru 12/22/24 12:00 Intake Total 69465.67 Output Total 16108 Balance 4208.67 Current Meds Ordered / Administered: Current meds ordered / Administered Generic Name Dose Route Start Last Admin Trade Name Freq PRN Reason Stop Dose Admin Acetaminophen 650 mg 12/22/24 11:48 Acetaminophen 325 Mg Tablet PO Q6H PRN PRN Pain 1-10 or Fever Albuterol Sulfate 2.5 mg 12/15/24 23:37 Albuterol 2.5 Mg/3 Ml Vial.Neb. INHALATION Q2H PRN PRN Dyspnea, wheezing Albuterol/Ipratropium 3 ml 12/16/24 02:15 12/22/24 07:19 Ipratropium/Albuterol Sulfate 3 Ml Ampul.Neb INHALATION 3 ml Q6H.RT MAINE Administration Budesonide 0.5 mg 12/15/24 23:45 12/22/24 07:19 Budesonide Respules 0.5 Mg/2 Ml Ampul.Neb. INHALATION 0.5 mg BID.RT MAINE Administration Chlorhexidine Gluconate 1 each 12/16/24 10:00 12/22/24 11:23 Chlorhexidine Gluc 2% Cloth 1 Each Towelette TOPICAL 1 each DAILY MAINE Administration Furosemide 20 mg 12/20/24 09:15 12/22/24 13:56 Furosemide 20 Mg/2 Ml Vial IV 20 mg Q8 MAINE Administration Protocol Glucagon 1 mg 12/15/24 23:36 Glucagon 1 Mg/Ml Syringe IM X1 PRN Hypoglycemia Protocol Heparin Sodium (Porcine) 5,000 unit 12/17/24 14:00 12/22/24 13:56 Heparin Injection (Vial) 5,000 Unit/Ml Vial SC 5,000 unit Q8 MAINE Administration Hydralazine HCl 10 mg 12/15/24 23:37 Hydralazine 20 Mg/Ml Vial IV Q4H PRN PRN SBP > 160 Protocol Dextrose 250 mls @ 0 mls/hr 12/15/24 23:36 Dextrose 10%-Water IV .Q0M PRN HYPOGLYCEMIA Protocol As Directed Pantoprazole Sodium 40 mg/ 100 mls @ 330 mls/hr 12/15/24 23:40 12/22/24 11:42 Sodium Chloride IV Infused Q12 MAINE Infusion Sodium Chloride 250 mls @ 15 mls/hr 12/16/24 01:04 12/22/24 11:42 IV 0 mls/hr .[id number] PRN Infusion Saline Flush Sodium Chloride 250 mls @ 15 mls/hr 12/16/24 01:04 IV .[id number] PRN Additional IVPB Infusion Norepinephrine Bitartrate 8 mg 250 mls @ 9.375 mls/hr 12/18/24 05:05 12/22/24 06:00 / Sodium Chloride CONT INF 0 mcg/min .[id number] MAINE 0 mls/hr Protocol Titration 5 MCG/MIN Meropenem 1 gm/ Sodium 100 mls @ 33 mls/hr 12/20/24 07:30 12/22/24 13:56 Chloride IV 33 mls/hr Q8 MAINE Administration Vancomycin IV-PHARMACY TO DOSE 500 mls @ 250 mls/hr 12/20/24 07:13 1 each/ Sodium Chloride IV PRN PRN Rx to Dose Protocol Multivitamins 10 ml/ Zinc/ 1,011.2 mls @ 42 mls/hr 12/21/24 16:00 12/22/24 11:30 Copper/Manganese/Selenium 1 ml IV 12/22/24 15:47 42 mls/hr / Folic Acid 1 mg/ Total .Q24H MAINE Infusion Parenteral Nutrition Amiodarone HCl 360 mg/ 200 mls @ 16.667 mls/hr 12/21/24 23:00 12/22/24 10:27 Dextrose CONT INF 12/22/24 22:00 0.5 mg/min .Q12H MAINE 16.7 mls/hr 0.5 MG/MIN Administration Multivitamins 10 ml/ Zinc/ 2,011.2 mls @ 42 mls/hr 12/22/24 16:00 Copper/Manganese/Selenium 1 ml IV 12/23/24 15:47 / Folic Acid 1 mg/ Total .Q24H [facility] Parenteral Nutrition Insulin Glargine 40 unit 12/19/24 10:00 12/22/24 11:28 Insulin Glargine-Yfgn 100 Unit/Ml Pen SC 40 unit DAILY MAINE Administration Insulin Human Lispro 0 unit 12/16/24 00:00 12/22/24 11:28 Insulin Lispro 100 Unit/Ml Insuln.Pen SC 4 u Q6 [facility] Administration Protocol Insulin Human Lispro 8 unit 12/22/24 07:30 12/22/24 11:29 Insulin Lispro 100 Unit/Ml Insuln.Pen SC 8 units Q6 MAINE Administration Metoprolol Tartrate 25 mg 12/22/24 22:00 Metoprolol Tartrate 25 Mg Tablet PO BID MAINE Protocol Sodium Chloride 10 - 40 ml 12/15/24 23:22 12/22/24 06:07 0.9% Saline Lock 10 Ml Syringe IV 40 ml UD PRN Administration SALINE FLUSH Sodium Chloride 10 - 40 ml 12/15/24 23:22 0.9% Saline Lock 10 Ml Syringe IV UD PRN SALINE FLUSH Sodium Chloride 10 - 40 ml 12/16/24 01:04 0.9% Saline Lock 10 Ml Syringe IV UD PRN SALINE FLUSH Vancomycin Protocol 1 lab 12/23/24 00:00 Vancomycin Trough/Random Due 12/23/24 02:00 DAILY [facility] Lab / Micro Data 12/22/24 03:40 12/22/24 05:50 Labs: Laboratory Results - last 24 hr 12/21/24 17:33: POC Glucose 351 H 12/21/24 22:40: D-Dimer Quant (PE/DVT) < 0.27 L, Potassium 2.7 L*, Magnesium 1.6, Troponin T High Sens 20 D 12/22/24 01:55: POC Glucose 346 H 12/22/24 03:40: WBC 14.9 H, RBC 4.91, Hgb 14.8, Hct 43.5, MCV 88.6 D, MCH 30.1, MCHC 34.0, RDW Std Deviation 42.9, RDW Coeff of David 13.2, Plt Count 272, MPV 11.4, Immature Gran % (Auto) 1.400 H, Neut % (Auto) 84.4 H, Lymph % (Auto) 4.9 L, [place] % (Auto) 7.3, Eos % (Auto) 1.4, Baso % (Auto) 0.6, Absolute Neuts (auto) 12.6 H, Absolute Lymphs (auto) 0.73 L, Nucleated RBC % 0, Sodium Cancelled, Potassium Cancelled, Chloride Cancelled, Carbon Dioxide Cancelled, Anion Gap Cancelled, BUN Cancelled, Creatinine Cancelled, Estim Creat Clear Calc Cancelled, Est GFR (MDRD) Non-Af Cancelled, BUN/Creatinine Ratio Cancelled, Glucose Cancelled, Calcium Cancelled, Magnesium Cancelled 12/22/24 05:24: POC Glucose 344 H 12/22/24 05:50: Sodium 141, Potassium 3.6, Chloride 107, Carbon Dioxide 24.0, Anion Gap 11, BUN 19, Creatinine 0.70, Estim Creat Clear Calc 129.43, Est GFR (MDRD) Non-Af 104, BUN/Creatinine Ratio 27.5 H, Glucose 390 H, Calcium 8.2, Magnesium 2.0 12/22/24 08:13: Vancomycin Trough 37.0 H 12/22/24 11:27: POC Glucose 208 H ABG Data ABG results: ABG 12/21/24 23:02 Specimen Type ART Sample Site L Radial pH 7.42 Bicarbonate Actual 25.7 Total CO2 27 Base Excess 1 O2 Saturation 93 L O2 % 6.0 ABG pCO2 39.4 ABG pO2 64 L O2 Delivery Device Cannula Vent Mode Not entered Rhythm Strip Rhythm Strip: Sinus Rhythm Rate: 76 Ectopy: None Imaging Radiology Impression Chest X-Ray 12/21/24 22:34 IMPRESSION: Cardiomegaly with vascular congestion. Slight interval increase and small-moderate bilateral pleural effusions. Reading Location: [facility] Assessment and Plan . Assessment and plan: [facility] Medical Records Department [address] [place] [id number] Progress Note - Helicopter Engineer 12/21/24 3207 MR#: [id number] Acct: [id number] Name: KIEL CARRANZA Rep #: [id number] : 1960 64 From: Shlomo Syed MD PCP: Dr. Juan Miguel Russell MD Status: ADM IN Location: ICU [id number] Objective Data Objective Data Vital Signs: Vital Signs Last response Temperature 37.6 C H 12/21/24 12:00 Temperature Source Core 12/21/24 12:00 Pulse Rate 100 12/21/24 13:47 Pulse Strength Weak (1+) 12/20/24 22:00 Respiratory Rate 28 H 12/21/24 13:47 Respiratory Effort Normal, Non-Labored 12/21/24 08:00 Respiratory Depth Normal 12/21/24 08:00 Respiratory Pattern Normal 12/21/24 08:00 Blood Pressure 158/63 H 12/21/24 12:00 Blood Pressure Mean 94 12/21/24 12:00 Blood Pressure Source Monitor 12/21/24 12:00 Blood Pressure Position Semi-Fowlers 12/21/24 12:00 Blood Pressure Location Right Arm 12/21/24 12:00 Baseline BP 129/88 12/16/24 00:15 Pulse Ox 100 12/21/24 12:00 Oxygen Delivery Method Nasal Cannula 12/21/24 13:47 Oxygen Flow Rate (L/min) 3 12/21/24 13:47 Fraction of Inspired Oxygen (FIO2) 5 12/21/24 02:00 I&O: I&O Last 24 Hours 12/20/24 12/21/24 12/21/24 23:59 11:59 23:59 Intake Total 1494.20 / 1861.95 961.35 / 1591.35 630 / 1591.35 Output Total 1000 / 3000 4450 / 4700 250 / 4700 Balance 494.20 / -1138.05 -3488.65 / -3108.65 380 / -3108.65 I&O: Total Stay 12/15/24 17:38 thru 12/21/24 12:58 Intake Total .53 Output Total 48733 Balance 2579.53 Current Meds Ordered / Administered: Current meds ordered / Administered Generic Name Dose Route Start Last Admin Trade Name Freq PRN Reason Stop Dose Admin Albuterol Sulfate 2.5 mg 12/15/24 23:37 Albuterol 2.5 Mg/3 Ml Vial.Neb. INHALATION Q2H PRN PRN Dyspnea, wheezing Albuterol/Ipratropium 3 ml 12/16/24 02:15 12/21/24 13:47 Ipratropium/Albuterol Sulfate 3 Ml Ampul.Neb INHALATION 3 ml Q6H.RT MAINE Administration Budesonide 0.5 mg 12/15/24 23:45 12/21/24 07:55 Budesonide Respules 0.5 Mg/2 Ml Ampul.Neb. INHALATION 0.5 mg BID.RT MAINE Administration Chlorhexidine Gluconate 1 each 12/16/24 10:00 12/21/24 05:16 Chlorhexidine Gluc 2% Cloth 1 Each Towelette TOPICAL 1 each DAILY MAINE Administration Fentanyl Citrate 50 - 100 mcg 12/15/24 23:22 12/21/24 09:27 Fentanyl 100 Mcg/2 Ml Ampul IV 100 mcg Q2H PRN PRN Administration Pain Score 1-10 Furosemide 20 mg 12/20/24 09:15 12/21/24 14:18 Furosemide 20 Mg/2 Ml Vial IV 20 mg Q8 MAINE Administration Protocol Glucagon 1 mg 12/15/24 23:36 Glucagon 1 Mg/Ml Syringe IM X1 PRN Hypoglycemia Protocol Heparin Sodium (Porcine) 5,000 unit 12/17/24 14:00 12/21/24 14:18 Heparin Injection (Vial) 5,000 Unit/Ml Vial SC 5,000 unit Q8 MAINE Administration Hydralazine HCl 10 mg 12/15/24 23:37 Hydralazine 20 Mg/Ml Vial IV Q4H PRN PRN SBP > 160 Protocol Dextrose 250 mls @ 0 mls/hr 12/15/24 23:36 Dextrose 10%-Water IV .Q0M PRN HYPOGLYCEMIA Protocol As Directed Pantoprazole Sodium 40 mg/ 100 mls @ 330 mls/hr 12/15/24 23:40 12/21/24 12:26 Sodium Chloride IV Infused Q12 MAINE Infusion Sodium Chloride 250 mls @ 15 mls/hr 12/16/24 01:04 IV .[id number] PRN Saline Flush Sodium Chloride 250 mls @ 15 mls/hr 12/16/24 01:04 IV .[id number] PRN Additional IVPB Infusion Norepinephrine Bitartrate 8 mg 250 mls @ 9.375 mls/hr 12/18/24 05:05 12/21/24 12:25 / Sodium Chloride CONT INF Not Given .[id number] MAINE Protocol 5 MCG/MIN Meropenem 1 gm/ Sodium 100 mls @ 33 mls/hr 12/20/24 07:30 12/21/24 14:16 Chloride IV 33 mls/hr Q8 MAINE Administration Vancomycin IV-PHARMACY TO DOSE 500 mls @ 250 mls/hr 12/20/24 07:13 1 each/ Sodium Chloride IV PRN PRN Rx to Dose Protocol Vancomycin HCl 1,500 mg/ 530 mls @ 250 mls/hr 12/20/24 17:30 12/21/24 12:58 Sodium Chloride IV Infused Q8H MAINE Infusion Multivitamins 10 ml/ Zinc/ 1,011.2 mls @ 42 mls/hr 12/21/24 16:00 Copper/Manganese/Selenium 1 ml IV 12/22/24 15:47 / Folic Acid 1 mg/ Total .Q24H MAINE Parenteral Nutrition Insulin Glargine 40 unit 12/19/24 10:00 12/21/24 10:53 Insulin Glargine-Yfgn 100 Unit/Ml Pen SC 40 unit DAILY MAINE Administration Insulin Human Lispro 0 unit 12/16/24 00:00 12/21/24 10:53 Insulin Lispro 100 Unit/Ml Insuln.Pen SC 8 u Q6 MAINE Administration Protocol Sodium Chloride 10 - 40 ml 12/15/24 23:22 12/21/24 09:27 0.9% Saline Lock 10 Ml Syringe IV 40 ml UD PRN Administration SALINE FLUSH Sodium Chloride 10 - 40 ml 12/15/24 23:22 0.9% Saline Lock 10 Ml Syringe IV UD PRN SALINE FLUSH Sodium Chloride 10 - 40 ml 12/16/24 01:04 0.9% Saline Lock 10 Ml Syringe IV UD PRN SALINE FLUSH Vancomycin Protocol 1 lab 12/22/24 08:00 Vancomycin Trough/Random Due MC 12/22/24 10:00 DAILY MAINE Assessment and Plan . Assessment: #Acute postoperative respiratory failure, resolved #SB perforation sp ex-lap resection & re-anastomosis POD #4 - minimal signs of bowel function yet - continued NGT output related to ileus #RVR afib, unstable, s/p DCCV #Acute normocytic anemia #Acute thrombocytopenia #DM Plan: - Cont. diuresis as tolerated - continue amiodarone - Start TPN for nutritional support per GS - Cont emp IV Abx; - Cont strict I/Os - Cont NGT to LIWS given ongoing high output, -defer to GS if enteral analgesics make sense given current amount of NGT output NPO LMWH, PPI Shlomo Syed MD Critical Care Time: 50 minutes The entirety of this encounter was done via Telemedicine Physical Exam Const alert General Appearance: cooperative HEENT normocephalic Eyes PERRL Neck full ROM Resp normal respiratory effort Cardio Rate: tachycardic GI Inspection: abdominal distention Auscultation: hypoactive bowel sounds Subjective Subjective Unstable/ symptomatic RVR/ flutter last night refractory to amio bolus ultimately required DCCV with resumption of SR/ ST. Remainder of clinical issues are largely the same.
[2024-12-22] MEDS: TPN - Clinimix E 8%-14% Soln 2,000 ML with Multivitamins 10 ML, Trace Elements 1 ML, Fo... 42 ML IV (17:00)
[2024-12-23] VITALS (25 sets, daily range): BP systolic 121–150; BP diastolic 47–83; PULSE 66–85; RESP 15–74; TEMP 36.6–37.6; O2SAT 91–97; BMI 47.5
[2024-12-23] MEDS: Vancomycin Trough/Random Due 1 LAB MC (00:18)
[2024-12-23 00:43] LABS: Vancomycin, Random Level 20.2 ug/mL (0.0-15.0)
--- NOTE | 2024-12-23 02:03 | PCM.RX.CS ---
Consult Antibiotic Management Pharmacy has been consulted to manage selected antibiotic: Vancomycin Type of Intervention Type of Consult: Follow-up Suspected Infection Suspected Infection: Other Labs Labs: Sodium 141 mmol/L (133-145) 12/22/24 05:50 Potassium 3.6 mmol/L (3.3-5.1) 12/22/24 05:50 Chloride 107 mmol/L (98-108) 12/22/24 05:50 Carbon Dioxide 24.0 mmol/L (21.0-32.0) 12/22/24 05:50 Anion Gap 11 (5-15) 12/22/24 05:50 BUN 19 mg/dL (4-19) 12/22/24 05:50 Creatinine 0.70 mg/dL (0.70-1.20) 12/22/24 05:50 Est GFR (MDRD) Non-Af 104 (>60) 12/22/24 05:50 BUN/Creatinine Ratio 27.5 RATIO (10-20) H 12/22/24 05:50 Glucose 390 mg/dL (70-99) H 12/22/24 05:50 Vancomycin Trough 37.0 ug/mL (5.0-15.0) H 12/22/24 08:13 Random Vancomycin 20.2 ug/mL (0.0-15.0) H 12/23/24 00:15 Microbiology Microbiology: Microbiology 12/16/24 00:50 Blood Culture (Wb) - Left Wrist Blood Culture - Final No growth in 5 days. 12/16/24 00:40 Blood Culture (Wb) - Anticubital Right Blood Culture - Final No growth in 5 days. 12/16/24 02:51 Sputum, Induced/Lukens Gram Stain - Final 12/16/24 02:51 Sputum, Induced/Lukens Respiratory Culture - Final Streptococcus agalactiae (B) Estimated Creatinine Clearance Estimated Creatinine Clearance: > 100 Goal Trough Goal Trough: 15-20 mcg/mL Pharmacy Plan for Drug Dosing Pharmacy Plan for Drug Dosing: VANCOMYCIN LEVEL RECEIVED Current Vancomycin Dose: on HOLD due to SUPRAtherapeutic level earlier today Number of Doses Received: 1500mg x5 prior to hold Vancomycin Level: 20.2 Hours Since Last Dose: 20.75 Renal Function: sCr 0.7 Renal Function Trend: stable Vancomycin Plan/Comments: Restart Vancomycin at a decreased dosing regimen of 1250mg Q12H (to start at 06:00 12/23/24) Pending Level: 12/24/24 @ 17:30 prior to the 4th dose Pharmacy Service will continue to monitor and adjust dosing as required. Follow-Up Labs Follow-Up Labs: Trough: Vancomycin (12/24/24 @ 17:30)
[2024-12-23 04:02] LABS: Hematocrit 42.3 % (40-54); Hemoglobin 14.1 g/dL (13.0-16.5); Mean Corp Hgb Conc 33.3 g/dL (32-36); Mean Corpuscular Volume 89.4 fL (80-94); Mean Platelet Vol. 11.6 fl (6.2-12.0); Platelet Count 232 K/mm3 (150-450); RBC Distribution Width CV 13.2 % (11.6-14.6); RBC Distribution Width SD 43.6 fl (35.1-43.9); Red Blood Count 4.73 M/mm3 (4.6-6.2); White Blood Count 10.3 K/mm3 (4.4-11.0)
[2024-12-23 04:32] LABS: Anion Gap 10 (5-15); BUN 18 mg/dL (4-19); BUN/Creat Ratio 28.4 RATIO (10-20); Calcium,Total 8.2 mg/dL (7.6-11.0); Carbon Dioxide 24.9 mmol/L (21.0-32.0); Chloride 106 mmol/L (98-108); Estimated Creatinine Clearance 141.70 ml/min (50-250); Glucose 208 mg/dL (70-99); Potassium 3.6 mmol/L (3.3-5.1)
[2024-12-23] MEDS: Meropenem 1 GM in 0.9% Normal Saline (100mL MB+) 100 ML IV ×3 (05:42→23:33)
[2024-12-23] MEDS: Budesonide Respules 0.5 MG/2 ML AMPUL.NEB. INHALATION ×2 (07:08→19:34)
[2024-12-23] MEDS: Furosemide 20 MG/2 ML VIAL IV ×3 (07:34→22:34)
[2024-12-23] MEDS: Heparin Injection (Vial) 5,000 UNIT/ML VIAL 5000 UNIT SC ×3 (07:36→22:34)
[2024-12-23] MEDS: Vancomycin HCl 1,250 MG in 0.9% Normal Saline (250mL Bag) 250 ML 167 MG IV ×2 (07:37→17:39)
--- NOTE | 2024-12-23 07:37 | PN.CC_ITS ---
Assessment & Plan Assessment/Plan (1) Perforated abdominal viscus: PLAN: Plan RECOMMENDATIONS: 1. Supplemental oxygen to maintain saturations at or above 90%. 2. Continue antimicrobials. 3. Continue bronchodilators. 4. Continue PPI therapy and appropriate DVT prophylaxis. 5. Gentle diuresis as tolerated by hemodynamics and renal function. 6. TPN for nutritional support. Will defer decisions regarding dietary advancement to general surgery. 7. Will sign off from a critical care perspective. Please call with any additional questions. IMPRESSIONS: 1. Postoperative respiratory failure The patient initially presented to the emergency department with abdominal pain with CT imaging demonstrated pneumoperitoneum concerning for hollow viscus perforation. He was seen in consultation urgently by general surgery and taken to the OR where he underwent exploratory laparoscopy converted to open with resection of small bowel and anastomosis secondary to a perforated small bowel segment. Postoperatively, the patient was left intubated due to his reported history of COPD. With supportive care, the patient was ultimately able to be extubated, with sputum culture demonstrating growth of group B streptococcus. Therefore, recommend continuing antimicrobials to complete treatment course. Continue to wean supplemental oxygen to maintain saturations at or above 90%. Continue ongoing gentle diuresis as tolerated by hemodynamics and renal function. 2. Small bowel perforation, now status post small bowel resection Continue routine postoperative care per general surgery recommendations. 3. Morbid obesity/questionable history of COPD/hypertension/hyperlipidemia/diabetes mellitus/GERD/neuropathy Complicates care, management, recovery and prognosis. Continue supportive care as noted above. This note was generated with [employer] dictation software. It may contain incorrect words, spelling, and punctuation that were not noted in checking the note before signing. Subjective Subjective The patient was seen and examined at the bedside this morning. Events from the last 24 hours have been reviewed. The patient is currently afebrile, hemodynamically stable and maintaining appropriate oxygen saturations on 4 L/min via nasal cannula. White blood cell count is normal. Hemoglobin and platelet count are stable. Creatinine is within normal limits. Objective Data Objective Data The patient's most recent lab work, culture data and imaging studies have all been personally reviewed. Sputum culture dated December 16 was positive for group B Streptococcus. Vital Signs: Vital Signs Temp Pulse Resp BP Pulse Ox O2 Del Method O2 Flow Rate 98.0 F 77 19 H 138/55 H 93 Nasal Cannula 4 12/22/24 20:00 12/23/24 07:31 12/23/24 07:31 12/23/24 07:31 12/23/24 07:31 12/23/24 07:31 12/23/24 07:31 FiO2 45 12/23/24 04:00 Oxygen Flow Rate (L/min) 4 Oxygen Delivery Method Nasal Cannula Weight: 277 lb 1.937 oz Body Mass Index (BMI) 47.5 Intake & Output: Intake and Output for Last 24 Hours 12/21/24 12/22/24 12/23/24 23:59 23:59 23:59 Intake Total 4903.46 / 4923.22 2718.73 / 2718.73 100 / 100 Output Total 6200 / 6800 5300 / 5300 900 / 900 Balance -1296.54 / -1876.78 -2581.27 / -2581.27 -800 / -800 Lab / Micro Data Attestation: I reviewed the patient's lab results. 12/23/24 03:50 12/23/24 03:50 Labs: Laboratory Results - last 24 hr 12/22/24 08:13: Vancomycin Trough 37.0 H 12/22/24 11:27: POC Glucose 208 H 12/22/24 17:06: POC Glucose 152 H 12/23/24 00:06: POC Glucose 177 H 12/23/24 00:15: Random Vancomycin 20.2 H 12/23/24 03:50: WBC 10.3, RBC 4.73, Hgb 14.1, Hct 42.3, MCV 89.4, MCH 29.8, MCHC 33.3, RDW Std Deviation 43.6, RDW Coeff of David 13.2, Plt Count 232, MPV 11.6, Sodium 141, Potassium 3.6, Chloride 106, Carbon Dioxide 24.9, Anion Gap 10, BUN 18, Creatinine 0.64 L, Estim Creat Clear Calc 141.70, Est GFR (MDRD) Non-Af 106, BUN/Creatinine Ratio 28.4 H, Glucose 208 H, Calcium 8.2 Micro: Microbiology 12/16/24 00:50 Blood Culture (Wb) - Left Wrist Blood Culture - Final No growth in 5 days. 12/16/24 00:40 Blood Culture (Wb) - Anticubital Right Blood Culture - Final No growth in 5 days. 12/16/24 02:51 Sputum, Induced/Lukens Gram Stain - Final 12/16/24 02:51 Sputum, Induced/Lukens Respiratory Culture - Final Streptococcus agalactiae (B) Radiography Diagnostic Testing: Radiology Impression Chest X-Ray 12/16/24 08:40 IMPRESSION: Satisfactory positioning of the endotracheal tube. Nasogastric tube within the stomach. Consider advancing the nasogastric tube 4-6 cm for more optimal positioning. Hypoventilation, central congestion, subsegmental atelectasis. Reading Location: [id number] Rhythm Strip Rhythm Strip: Sinus Rhythm Rate: 76 Ectopy: None Physical Exam Const alert and no apparent distress General Appearance: cooperative HEENT normocephalic and head/scalp atraumatic Eyes PERRL, EOMs intact bilaterally and conjunctivae normal Neck supple General: trachea midline Chest inspection of chest normal Resp normal respiratory effort Auscultation: diminished lung sounds Cardio regular rate and regular rhythm GI soft to palpation GI Narrative: Distended with hypoactive bowel sounds Extremity no clubbing, cyanosis or edema Skin no rashes or lesions noted Neuro CN's II-XII intact bilaterally, moves all extremities and no focal motor deficits Psych Mood & Affect: flat affect Charges/Coding Visit Charges Inpatient E&M: 69519 Subs Hosp L2
--- NOTE | 2024-12-23 08:45 | PCM.PN.HOSP ---
Objective Data Objective Data Vital Signs: Vital Signs Temp Pulse Resp BP Pulse Ox O2 Del Method O2 Flow Rate 98.0 F 77 19 H 138/55 H 93 Nasal Cannula 4 12/22/24 20:00 12/23/24 07:31 12/23/24 07:31 12/23/24 07:31 12/23/24 07:31 12/23/24 08:00 12/23/24 08:00 FiO2 90 12/23/24 08:00 Oxygen Flow Rate (L/min) 4 Oxygen Delivery Method Nasal Cannula Weight: 277 lb 1.937 oz Body Mass Index (BMI) 47.5 Intake & Output: Intake and Output for Last 24 Hours 12/21/24 12/22/24 12/23/24 23:59 23:59 23:59 Intake Total 4903.46 / 4923.22 2718.73 / 2718.73 100 / 100 Output Total 6200 / 6800 5300 / 5300 1775 / 1775 Balance -1296.54 / -1876.78 -2581.27 / -2581.27 -1675 / -1675 Lab / Micro Data 12/23/24 03:50 12/23/24 03:50 Labs: Laboratory Results - last 24 hr 12/22/24 08:13: Vancomycin Trough 37.0 H 12/22/24 11:27: POC Glucose 208 H 12/22/24 17:06: POC Glucose 152 H 12/23/24 00:06: POC Glucose 177 H 12/23/24 00:15: Random Vancomycin 20.2 H 12/23/24 03:50: WBC 10.3, RBC 4.73, Hgb 14.1, Hct 42.3, MCV 89.4, MCH 29.8, MCHC 33.3, RDW Std Deviation 43.6, RDW Coeff of David 13.2, Plt Count 232, MPV 11.6, Sodium 141, Potassium 3.6, Chloride 106, Carbon Dioxide 24.9, Anion Gap 10, BUN 18, Creatinine 0.64 L, Estim Creat Clear Calc 141.70, Est GFR (MDRD) Non-Af 106, BUN/Creatinine Ratio 28.4 H, Glucose 208 H, Calcium 8.2 12/23/24 07:25: POC Glucose 254 H Micro: Microbiology 12/20/24 16:30 Blood Culture (Wb) - Pic Blood Culture - Preliminary No growth in 48 hours. 12/16/24 00:50 Blood Culture (Wb) - Left Wrist Blood Culture - Final No growth in 5 days. 12/16/24 00:40 Blood Culture (Wb) - Anticubital Right Blood Culture - Final No growth in 5 days. 12/16/24 02:51 Sputum, Induced/Lukens Gram Stain - Final 12/16/24 02:51 Sputum, Induced/Lukens Respiratory Culture - Final Streptococcus agalactiae (B) Rhythm Strip Rhythm Strip: Sinus Rhythm Rate: 76 Ectopy: None Physical Exam Narrative Seen and examined. 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 Heart rate and blood pressure controlled, sinus rhythm. Patient was on BiPAP at night. Currently on 4 L high flow oxygen. On TPN Physical General: Alert, Oriented x3, Cooperative. BMI 47.6 kg/m?, morbid obesity HEENT: Atraumatic, PERRLA, EOMI, Normocephalic. Oral: No Gingival or Mucosal Lesions/ Ulcerations Neck: Supple, No JVD, Negative Carotid Bruits Chest wall/Lungs: Air entry diminished in bilateral lung bases. No crepitation/rhonchi Cardiovascular: Regular rate and rhythm, Normal S1,S2, No M/G/R Abdomen: Midline surgical maite present, dry intact with no erythema/signs of infection. Bowel Sounds sluggish. Mild expected tenderness along incision line. : No dysuria. No renal angle tenderness. No suprapubic tenderness. Extremities: mild edema, Capillary Refill Less than 3 Seconds Skin: No rashes, No breakdown Musculoskeletal: No Tenderness to Palpation of Joints or Extremities. ROM of knees and hips not examined Neurological: Cranial nerves II-XII grossly intact, DTR 2+/4. No acute focal neurological deficit. Psych/Mental Status: Flat affect Assessment & Plan Assessment/Plan (1) Perforated abdominal viscus: (2) Streptococcal pneumonia: (3) Paroxysmal atrial fibrillation with RVR: PLAN: Plan Patient is a 64-year-old male who presented to [facility] ED on 12/15/2024 with abdominal pain. Found to have pneumoperitoneum on CT imaging. Admitted under general surgery service and the hospitalist service consulted for assistance with medical management. 1. Perforated abdominal viscus ?S/p ex-lap w resection with anastamosis. 12/23:? Patient stated he did not pass flatus but bowel sounds present though sluggish ?abx have been changed to meropenem and vancomycin ?Now with ileus, mgmt per GS. ?On TPN 12/23: Streptococcal group B pneumonia ? Streptococcus agalactiae on sputum culture ? Afebrile. On meropenem and vancomycin. Previous antibiotics were discontinued; ciprofloxacin and metronidazole. 12/23: Repeat culture from 12/20 shows no growth in 48 hours. Earlier blood culture were negative on 12/16 per Paroxysmal A-fib with RVR ?Developed A-fib RVR with rate to the 170s overnight on 12/21. Has history of paroxysmal A-fib, DOAC was on hold secondary to recent surgery. Was initiated on p.o. Lopressor and given a dose of IV Lopressor but unfortunately became hypotensive and had worsening respiratory status. Thus, patient underwent DCCV under conscious sedation with conversion back to sinus rhythm with rate to the 90s. Given amiodarone bolus and initiated on amiodarone drip. Required low-dose Levophed during cardioversion and shortly afterward, weaned off by morning 12/22. 12/23: Completed amiodarone drip. On metoprolol 25 mg twice daily currently sinus rhythm heart rate controlled in 70s. Acute hypoxic respiratory failure, improving: extubated on 12/20. CXR on 12/21 showing pulmonary vascular edema. Continue IV Lasix 20 mg every 8 hours. 12/23: On 3 to 4 L of high flow oxygen and BiPAP at night. DM2: Continue glargine and SSI. Hyperglycemia with sugars to the 350s noted on the morning of 12/22. Initiated Humalog 8 units every 6 hours in addition to sliding scale insulin. Continue glargine as previous. Monitor sugars. Septic shock: wean off of norepinephrine on 12/20. Due to perforated viscous. HTN: amlodipine held given shock. VTE prophylaxis: per primary service. Total time of the visit including total time spent in counseling or coordination of care, (more than 50% of the total time, spent in obtaining medical information from nurses and other ancillary care providers ,explaining to the patient about labs, imaging, diagnosis and management of active complex medical conditions), , review of labs and imaging is 35 minutes. Charges/Coding Visit Charges Inpatient E&M: 97685 Subs Hosp L3
--- NOTE | 2024-12-23 09:53 | CASEMGMT ---
Addendum entered by Trell Garcia 12/23/24 11:21: [facility] calls and states that they are able to accept with SOC TBD contingent on pt's DC date. CM to follow. Original Note: THOMAS CM to the patient's room to discuss DC planning. Pt is A&Ox4, and ICU rounds were recently completed with the patient. At this time, the patient refuses SNF. Pt states that he wants to go home at the time of DC with the help of his family. The patient states that he is open to skilled HHC. Pt informed that skilled HH can help with DM management, possible new oxygen assistance, medications, wound care, VS monitoring, therapy, and more. A list of local in-network HHC agencies was offered to the patient. Pt declines and states that he prefers [facility]. TC to [facility], and referral made. Awaiting return response. Pt also states that he does not have home oxygen. Pt is currently requiring additional oxygen and may qualify for home oxygen use. A verbal list of local in-network DME companies was provided to the patient at this time. Pt prefers [facility]. Pt also reports that he would be receptive to a glucometer and supplies Rx. CM to follow. Pt denies further questions or concerns at this time. CM to follow. Tentative DC plan: Home with pt's family assistance ( and daughter who is pt's SEISMOGRAPH SHOOTER), skilled HHC, potential new oxygen, and BGM and supplies Rx. To send DC summary to the patient's [facility] CM.
[2024-12-23] MEDS: Insulin Glargine-YFGN 100 UNIT/ML Pen 40 UNIT SC (09:57)
[2024-12-23] MEDS: Pantoprazole Sodium 40 MG in 0.9% Normal Saline (100mL MB+) 100 ML 330 MG IV ×2 (09:58→22:35)
[2024-12-23] MEDS: CHLORHEXIDINE GLUC 2% CLOTH 1 EACH TOWELETTE TOPICAL (10:42)
--- NOTE | 2024-12-23 12:17 | CHAPLAIN ---
Type of Pastoral Visit _x__ Initial Visit ___ Follow-up Visit ___ On-call Visit ___ General Patient Visit ___ Spiritual Assessment ___ Family Conference ___ Bereavement ___ Rapid Response ___ Code Blue ___ Other (describe below) Pastoral Care Referral From _x__ Patient _x_ Family ___ Nurse ___ Physician ___ Maintenance Leader ___ Laminating Machine Operator ___ Other (describe below) Sacrament/Intervention _x__ Active listening ___ Anointing ___ Cheondoism ___ Bereavement ___ Communion ___ Dalia exploration ___ ___ Life review ___ Prayer ___ Reconciliation ___ Sacrament of Sick _x__ Supportive presence ___ Wedding ___ Other (describe below) Pastoral Comments patient is awake in bed; daughter and her SO are in the room with patient; pt is offered support and company; pt says that he is getting support from those present; pt does not seek anything assistance at this time but expresses thanks for the visit and offer
[2024-12-23] MEDS: 0.9% Saline Lock 10 ML Syringe IV ×2 (14:15→16:53)
--- NOTE | 2024-12-23 14:37 | PN.SURG_ITS ---
Subjective Subjective Patient evaluated resting comfortably in bed. He denies any pain or discomfort. He denies any nausea, vomiting. He denies any flatus or bowel movement. He is currently NPO receiving TPN. Objective Data Objective Data Vital Signs: Vital Signs Temp Pulse Resp BP Pulse Ox O2 Del Method O2 Flow Rate 99.2 F H 68 20 H 135/57 H 97 Nasal Cannula 4 12/23/24 12:00 12/23/24 13:00 12/23/24 13:00 12/23/24 13:00 12/23/24 13:00 12/23/24 14:27 12/23/24 14:27 FiO2 90 12/23/24 08:00 Oxygen Flow Rate (L/min) 4 Oxygen Delivery Method Nasal Cannula Weight: 277 lb 1.937 oz Body Mass Index (BMI) 47.5 Intake & Output: Intake and Output for Last 24 Hours 12/21/24 12/22/24 12/23/24 23:59 23:59 23:59 Intake Total 4903.46 / 4923.22 2718.73 / 2718.73 575 / 575 Output Total 6200 / 6800 5300 / 5300 2500 / 2500 Balance -1296.54 / -1876.78 -2581.27 / -2581.27 -1925 / -1925 Lab / Micro Data 12/23/24 03:50 12/23/24 03:50 Labs: Laboratory Results - last 24 hr 12/22/24 17:06: POC Glucose 152 H 12/23/24 00:06: POC Glucose 177 H 12/23/24 00:15: Random Vancomycin 20.2 H 12/23/24 03:50: WBC 10.3, RBC 4.73, Hgb 14.1, Hct 42.3, MCV 89.4, MCH 29.8, MCHC 33.3, RDW Std Deviation 43.6, RDW Coeff of David 13.2, Plt Count 232, MPV 11.6, Sodium 141, Potassium 3.6, Chloride 106, Carbon Dioxide 24.9, Anion Gap 10, BUN 18, Creatinine 0.64 L, Estim Creat Clear Calc 141.70, Est GFR (MDRD) Non-Af 106, BUN/Creatinine Ratio 28.4 H, Glucose 208 H, Calcium 8.2 12/23/24 07:25: POC Glucose 254 H 12/23/24 11:41: POC Glucose 195 H Micro: Microbiology 12/20/24 16:30 Blood Culture (Wb) - Pic Blood Culture - Preliminary No growth in 48 hours. 12/16/24 00:50 Blood Culture (Wb) - Left Wrist Blood Culture - Final No growth in 5 days. 12/16/24 00:40 Blood Culture (Wb) - Anticubital Right Blood Culture - Final No growth in 5 days. 12/16/24 02:51 Sputum, Induced/Lukens Gram Stain - Final 12/16/24 02:51 Sputum, Induced/Lukens Respiratory Culture - Final Streptococcus agalactiae (B) Rhythm Strip Rhythm Strip: Sinus Rhythm Rate: 76 Ectopy: None Physical Exam GI GI Narrative: Abdomen- soft, tenderness in the right lower quadrant. Incision c/d/i. No erythema or infection noted. [place] intact. Hypoactive bowel sounds. Assessment & Plan Assessment/Plan (1) Perforated abdominal viscus: PLAN: I am following this patient in conjunction with Dr. Stevenson. Labs reviewed. Await bowel function. Continue NPO and TPN Plan to transfer patient to regular floor Encourage ambulation and I.S Continue IV antibiotics We will continue to monitor this patient Charges/Coding Visit Charges Inpatient E&M: 72200 Subs Hosp L1 (post-op; no charge)
[2024-12-23] MEDS: TRACE ELEMENTS IV (16:52)
[2024-12-23] MEDS: [UNRECOGNIZED DRUG - OTHER] IV (16:52)
[2024-12-23] MEDS: MULTIVITAMINS IV (16:52)
[2024-12-23] MEDS: 0.9% Normal Saline (250mL Bag) 250 ML 15 ML IV (16:53)
[2024-12-24] VITALS (11 sets, daily range): BP systolic 135–152; BP diastolic 60–73; PULSE 68–78; RESP 15–18; TEMP 36.8–37.1; O2SAT 91–96; BMI 43.3
[2024-12-24] MEDS: Furosemide 20 MG/2 ML VIAL IV (05:38)
[2024-12-24] MEDS: 0.9% Normal Saline (250mL Bag) 250 ML 15 ML IV (05:38)
[2024-12-24] MEDS: Vancomycin HCl 1,250 MG in 0.9% Normal Saline (250mL Bag) 250 ML 167 MG IV (05:38)
[2024-12-24] MEDS: Heparin Injection (Vial) 5,000 UNIT/ML VIAL 5000 UNIT SC ×3 (05:39→22:16)
[2024-12-24] MEDS: Meropenem 1 GM in 0.9% Normal Saline (100mL MB+) 100 ML IV (05:39)
[2024-12-24] MEDS: Budesonide Respules 0.5 MG/2 ML AMPUL.NEB. INHALATION ×2 (06:57→19:47)
--- NOTE | 2024-12-24 07:34 | PN.SURG_ITS ---
Subjective Subjective Patient reports he started to pass gas. He denies any nausea or vomiting or abdominal pain. Objective Data Objective Data Vital Signs: Vital Signs Temp Pulse Resp BP Pulse Ox O2 Del Method O2 Flow Rate 98.3 F 70 18 152/72 H 95 Nasal Cannula 3 12/24/24 05:53 12/24/24 05:53 12/24/24 05:53 12/24/24 05:53 12/24/24 05:53 12/24/24 06:00 12/24/24 06:00 FiO2 90 12/23/24 08:00 Oxygen Flow Rate (L/min) 3 Oxygen Delivery Method Nasal Cannula Weight: 253 lb 15.56 oz Body Mass Index (BMI) 43.3 Intake & Output: Intake and Output for Last 24 Hours 12/22/24 12/23/24 12/24/24 23:59 23:59 23:59 Intake Total 2718.73 / 2718.73 2046.05 / 2066.05 561.25 / 561.25 Output Total 5300 / 5300 3650 / 4650 2400 / 2400 Balance -2581.27 / -2581.27 -1603.95 / -2583.95 -1838.75 / -1838.75 Lab / Micro Data 12/23/24 03:50 12/23/24 03:50 Labs: Laboratory Results - last 24 hr 12/23/24 07:25: POC Glucose 254 H 12/23/24 11:41: POC Glucose 195 H 12/23/24 17:31: POC Glucose 155 H 12/23/24 23:36: POC Glucose 171 H 12/24/24 07:01: POC Glucose 267 H Micro: Microbiology 12/20/24 16:30 Blood Culture (Wb) - Pic Blood Culture - Preliminary No growth in 48 hours. 12/16/24 00:50 Blood Culture (Wb) - Left Wrist Blood Culture - Final No growth in 5 days. 12/16/24 00:40 Blood Culture (Wb) - Anticubital Right Blood Culture - Final No growth in 5 days. 12/16/24 02:51 Sputum, Induced/Lukens Gram Stain - Final 12/16/24 02:51 Sputum, Induced/Lukens Respiratory Culture - Final Streptococcus agalactiae (B) Rhythm Strip Rhythm Strip: Sinus Rhythm Rate: 76 Ectopy: None Physical Exam Const oriented x3 and no apparent distress Resp normal respiratory effort GI soft to palpation and non-tender Assessment & Plan Assessment/Plan (1) Streptococcal pneumonia: (2) Perforated abdominal viscus: PLAN: Plan I am ordering a KUB to see if his bowels are distended. As long as his bowels do not look like he has an ileus I will start clear liquids today. Stop TPN. Continue PPI. The hospitalist service still has him on meropenem and Vanco for his pneumonia. Raj Stevenson MD Pager: [facility] [address] [place] [address], [address] [place] [address] Office:
[2024-12-24] MEDS: Insulin Glargine-YFGN 100 UNIT/ML Pen 40 UNIT SC (08:23)
[2024-12-24] MEDS: Pantoprazole Sodium 40 MG in 0.9% Normal Saline (100mL MB+) 100 ML 330 MG IV ×2 (08:37→22:16)
--- NOTE | 2024-12-24 10:41 | PN.HOSP_ITS ---
Objective Data Objective Data Vital Signs: Vital Signs Temp Pulse Resp BP Pulse Ox O2 Del Method O2 Flow Rate 98.5 F 75 15 142/71 H 94 Nasal Cannula 2 12/24/24 08:16 12/24/24 08:22 12/24/24 08:16 12/24/24 08:16 12/24/24 08:16 12/24/24 08:16 12/24/24 08:16 FiO2 90 12/23/24 08:00 Oxygen Flow Rate (L/min) 2 Oxygen Delivery Method Nasal Cannula Weight: 253 lb 15.56 oz Body Mass Index (BMI) 43.3 Intake & Output: Intake and Output for Last 24 Hours 12/22/24 12/23/24 12/24/24 23:59 23:59 23:59 Intake Total 2718.73 / 2718.73 2046.05 / 2066.05 936.25 / 936.25 Output Total 5300 / 5300 3650 / 4650 2725 / 2725 Balance -2581.27 / -2581.27 -1603.95 / -2583.95 -1788.75 / -1788.75 Lab / Micro Data 12/23/24 03:50 12/23/24 03:50 Labs: Laboratory Results - last 24 hr 12/23/24 11:41: POC Glucose 195 H 12/23/24 17:31: POC Glucose 155 H 12/23/24 23:36: POC Glucose 171 H 12/24/24 07:01: POC Glucose 267 H Micro: Microbiology 12/20/24 16:30 Blood Culture (Wb) - Pic Blood Culture - Preliminary No growth in 48 hours. 12/16/24 00:50 Blood Culture (Wb) - Left Wrist Blood Culture - Final No growth in 5 days. 12/16/24 00:40 Blood Culture (Wb) - Anticubital Right Blood Culture - Final No growth in 5 days. 12/16/24 02:51 Sputum, Induced/Lukens Gram Stain - Final 12/16/24 02:51 Sputum, Induced/Lukens Respiratory Culture - Final Streptococcus agalactiae (B) Rhythm Strip Rhythm Strip: Sinus Rhythm Rate: 76 Ectopy: None Physical Exam Narrative Seen and examined. Patient is doing well on the [facility] floor. On IV antibiotics since admission. Sinus rhythm. On 3 to 4 L of oxygen. Did not require BiPAP last night On TPN Physical General: Alert, Oriented x3, Cooperative. BMI 47.6 kg/m?, morbid obesity HEENT: Atraumatic, PERRLA, EOMI, Normocephalic. Oral: No Gingival or Mucosal Lesions/ Ulcerations Neck: Supple, No JVD, Negative Carotid Bruits Chest wall/Lungs: Air entry diminished in bilateral lung bases. No crepitation/rhonchi Cardiovascular: Regular rate and rhythm, Normal S1,S2, No M/G/R Abdomen: Midline surgical maite present, dry intact with no erythema/signs of infection. Bowel Sounds present though sluggish. Mild expected tenderness along incision line. : No dysuria. No renal angle tenderness. No suprapubic tenderness. Extremities: mild edema, Capillary Refill Less than 3 Seconds Skin: No rashes, No breakdown Musculoskeletal: No Tenderness to Palpation of Joints or Extremities. ROM of knees and hips not examined Neurological: Cranial nerves II-XII grossly intact, DTR 2+/4. No acute focal neurological deficit. Psych/Mental Status: Flat affect Assessment & Plan Assessment/Plan (1) Perforated abdominal viscus: (2) Streptococcal pneumonia: (3) Paroxysmal atrial fibrillation with RVR: PLAN: Plan Patient is a 64-year-old male who presented to [facility] ED on 12/15/2024 with abdominal pain. Found to have pneumoperitoneum on CT imaging. Admitted under general surgery service and the hospitalist service consulted for assistance with medical management. 1. Perforated abdominal viscus ?S/p ex-lap w resection with anastamosis. 12/23:? Patient stated he did not pass flatus but bowel sounds present though sluggish ?abx have been changed to meropenem and vancomycin ?Now with ileus, mgmt per GS. ?On TPN 12/23: Streptococcal group B pneumonia ? Streptococcus agalactiae on sputum culture ? Afebrile. On meropenem and vancomycin. Previous antibiotics were discontinued; ciprofloxacin and metronidazole. 12/23: Repeat culture from 12/20 shows no growth in 48 hours. Earlier blood culture were negative on 12/16 per 12/24: Patient has been on antibiotic started on Cipro Flagyl on 12/15 and then changed to Vanco and meropenem on 12/20. I think he already had 9 days of IV antibiotics but will check with ID network relations consultant Dr. Delacruz for strep group B pneumonia, found on 12/16 sputum culture. Paroxysmal A-fib with RVR ?Developed A-fib RVR with rate to the 170s overnight on 12/21. Has history of paroxysmal A-fib, DOAC was on hold secondary to recent surgery. Was initiated on p.o. Lopressor and given a dose of IV Lopressor but unfortunately became hypotensive and had worsening respiratory status. Thus, patient underwent DCCV under conscious sedation with conversion back to sinus rhythm with rate to the 90s. Given amiodarone bolus and initiated on amiodarone drip. Required low- dose Levophed during cardioversion and shortly afterward, weaned off by morning 12/22. 12/23: Completed amiodarone drip. On metoprolol 25 mg twice daily currently sinus rhythm heart rate controlled in 70s. Acute hypoxic respiratory failure, improving: extubated on 12/20. CXR on 12/21 showing pulmonary vascular edema. Continue IV Lasix 20 mg every 8 hours. 12/23: On 3 to 4 L of high flow oxygen and BiPAP at night. 12/24: IV Lasix 20 mg Q8 hourly changed to 20 mg IV daily from tomorrow. DM2: Continue glargine and SSI. Hyperglycemia with sugars to the 350s noted on the morning of 12/22. Initiated Humalog 8 units every 6 hours in addition to sliding scale insulin. Continue glargine as previous. Monitor sugars. Septic shock: wean off of norepinephrine on 12/20. Due to perforated viscous. HTN: amlodipine held given shock. VTE prophylaxis: per primary service. Total time of the visit including total time spent in counseling or coordination of care, (more than 50% of the total time, spent in obtaining medical information from nurses and other ancillary care providers ,explaining to the patient about labs, imaging, diagnosis and management of active complex medical conditions), , review of labs and imaging is 35 minutes. Charges/Coding Visit Charges Inpatient E&M: 21767 Subs Hosp L2
--- NOTE | 2024-12-24 10:45 | RAD_ITS ---
PROCEDURE: ABDOMEN SINGLE VIEW (PORTABLE) 12/24/2024 REASON FOR EXAM: ILEUS TECHNIQUE: Procedure Code: RADABD_P Modality: DX Procedure: ABDOMEN SINGLE VIEW (PORTABLE) COMPARISON: None FINDINGS: Bowel gas: Large amount of fecal material is seen in the right hemicolon. Small bowel loops are not dilated. Calcifications: No suspicious calcifications. Bones: There are degenerative changes of the spine. Other: Recent surgery overlying the right side of the abdomen. Findings suggestive of subcutaneous soft tissue swelling and possible air within the soft tissue secondary to recent surgery. RAD/Abdomen Single View (Portable) IMPRESSION: No evidence of bowel obstruction. Reading Location: [id number]
[2024-12-24] MEDS: 0.9% Saline Lock 10 ML Syringe IV (12:20)
[2024-12-24] MEDS: Polyethylene Glycol 3350 17 GM PACKET PO ×2 (12:20→22:16)
--- NOTE | 2024-12-24 14:23 | CASEMGMT ---
Discharge Planning A list of?SNF providers including quality and resource use data and consistent with the patient's preferred geographic region, medical needs, and insurance network was created in [employer] Guide.? This list was provided to the SW. Marley Conklin Discharge Planning Asst.
--- NOTE | 2024-12-24 15:24 | CASEMGMT ---
Social Work- SW met with pt to discuss therapy recommendations and discharge planning. SW introduced self and role; pt agreeable to meet. Pt reports that he would like to discuss list with . Pt is agreeable to SW calling pt to provide list electronically. SW called pt , Shweta, who reports that she is sick and will not be able to visit pt. SW shared therapy reports and recommendations. Shweta reports that she can not assist pt due to her own medical issues, so it is just the dtr that can assist. Pt is agreeable to reviewing electronic list and selecting three choices. SW sent list electronically. SW remains available to follow. DIONICIO Vaughn
--- NOTE | 2024-12-24 20:13 | CPS ---
pt rinsed and spit x 1
[2024-12-25] VITALS (8 sets, daily range): BP systolic 122–161; BP diastolic 68–78; PULSE 70–89; RESP 17–18; TEMP 36.6–36.8; O2SAT 89–98; BMI 46.7; BMI 43.4
[2024-12-25 06:39] LABS: Hematocrit 42.5 % (40-54); Hemoglobin 14.2 g/dL (13.0-16.5); Immature Granulocytes Count 0.080 X10^3/uL (0.0-0.0); Mean Corp Hgb Conc 33.4 g/dL (32-36); Mean Corpuscular Volume 89.5 fL (80-94); Mean Platelet Vol. 11.6 fl (6.2-12.0); NRBC Flagged by Analyzer 0 % (0-5); Platelet Count 295 K/mm3 (150-450); RBC Distribution Width CV 13.2 % (11.6-14.6); RBC Distribution Width SD 43.4 fl (35.1-43.9); Red Blood Count 4.75 M/mm3 (4.6-6.2); White Blood Count 10.1 K/mm3 (4.4-11.0)
[2024-12-25] MEDS: Heparin Injection (Vial) 5,000 UNIT/ML VIAL 5000 UNIT SC (06:45)
[2024-12-25] MEDS: Budesonide Respules 0.5 MG/2 ML AMPUL.NEB. INHALATION ×2 (06:54→19:40)
[2024-12-25 07:13] LABS: Anion Gap 11 (5-15); BUN 21 mg/dL (4-19); BUN/Creat Ratio 34.6 RATIO (10-20); Calcium,Total 8.6 mg/dL (7.6-11.0); Carbon Dioxide 29.1 mmol/L (21.0-32.0); Chloride 104 mmol/L (98-108); Estimated Creatinine Clearance 151.93 ml/min (50-250); Glucose 140 mg/dL (70-99); Potassium 3.0 mmol/L (3.3-5.1)
--- NOTE | 2024-12-25 07:59 | PCM.PN.SRG ---
Subjective Subjective Patient is comfortable. He reports no bowel movement after MiraLAX. He tolerated clear liquids with no nausea or vomiting. Objective Data Objective Data Vital Signs: Vital Signs Temp Pulse Resp BP Pulse Ox O2 Del Method O2 Flow Rate 97.8 F 71 18 161/69 H 96 Nasal Cannula 2 12/25/24 03:28 12/25/24 06:54 12/25/24 06:54 12/25/24 03:28 12/25/24 06:54 12/25/24 06:54 12/25/24 06:54 FiO2 90 12/23/24 08:00 Oxygen Flow Rate (L/min) 2 Oxygen Delivery Method Nasal Cannula Weight: 274 lb 0.553 oz Body Mass Index (BMI) 46.7 Intake & Output: Intake and Output for Last 24 Hours 12/23/24 12/24/24 12/25/24 23:59 23:59 23:59 Intake Total 2046.05 / 2066.05 2397.45 / 2397.45 600 / 600 Output Total 3650 / 4650 2725 / 2725 Balance -1603.95 / -2583.95 -327.55 / -327.55 600 / 600 Lab / Micro Data 12/25/24 06:13 12/25/24 06:13 Labs: Laboratory Results - last 24 hr 12/24/24 11:50: POC Glucose 143 H 12/24/24 16:44: POC Glucose 97 12/24/24 23:32: POC Glucose 98 12/25/24 06:13: WBC 10.1, RBC 4.75, Hgb 14.2, Hct 42.5, MCV 89.5, MCH 29.9, MCHC 33.4, RDW Std Deviation 43.4, RDW Coeff of David 13.2, Plt Count 295, MPV 11.6, Immature Gran % (Auto) 0.800, Neut % (Auto) 78.7 H, Lymph % (Auto) 10.0 L, Perry % (Auto) 8.7, Eos % (Auto) 1.3, Baso % (Auto) 0.5, Absolute Neuts (auto) 8.0 H, Absolute Lymphs (auto) 1.01, Nucleated RBC % 0, Sodium 143, Potassium 3.0 L, Chloride 104, Carbon Dioxide 29.1, Anion Gap 11, BUN 21 H, Creatinine 0.60 L, Estim Creat Clear Calc 151.93, Est GFR (MDRD) Non-Af 109, BUN/Creatinine Ratio 34.6 H, Glucose 140 H, Calcium 8.6 12/25/24 06:43: POC Glucose 133 H Micro: Microbiology 12/20/24 16:30 Blood Culture (Wb) - Pic Blood Culture - Preliminary No growth in 48 hours. 12/16/24 00:50 Blood Culture (Wb) - Left Wrist Blood Culture - Final No growth in 5 days. 12/16/24 00:40 Blood Culture (Wb) - Anticubital Right Blood Culture - Final No growth in 5 days. 12/16/24 02:51 Sputum, Induced/Lukens Gram Stain - Final 12/16/24 02:51 Sputum, Induced/Lukens Respiratory Culture - Final Streptococcus agalactiae (B) Radiography Diagnostic Testing: Radiology Impression KUB X-Ray 12/24/24 10:45 IMPRESSION: No evidence of bowel obstruction. Reading Location: [facility] Rhythm Strip Rhythm Strip: Sinus Rhythm Rate: 76 Ectopy: None Physical Exam Const oriented x3 and no apparent distress Resp normal respiratory effort GI soft to palpation and non-tender Assessment & Plan Assessment/Plan (1) Perforated abdominal viscus: PLAN: The patient was started on clear liquids yesterday which he tolerated. His KUB showed a large amount of stool in the right colon so MiraLAX was started. I will advance him to a regular diet today. Antibiotics and Lasix were stopped yesterday. Raj Stevenson MD Pager: [facility] [address] [place] [address], [address] [place] [address] Office:
--- NOTE | 2024-12-25 09:02 | WOUNDNOTE ---
wound photo: left buttock
[2024-12-25] MEDS: Potassium Chloride Oral Tablet 20 MEQ 40 MEQ PO (09:04)
[2024-12-25] MEDS: Insulin Glargine-YFGN 100 UNIT/ML Pen 40 UNIT SC (09:06)
[2024-12-25] MEDS: Furosemide 20 MG/2 ML VIAL IV (09:08)
[2024-12-25] MEDS: 0.9% Saline Lock 10 ML Syringe IV (09:08)
--- NOTE | 2024-12-25 12:02 | CASEMGMT ---
Social Work SW met with pt to discuss discharge plan. Pt states that he wants to go home. SW spoke with pt regarding concerns staff has as pt is currently 2-3 assist for transfers and pt's has stated she cannot assist pt. Pt called Shweta and placed her on speaker phone. Shweta states she has spoke to her dgt Alicia who is pt's caregiver and lives with pt. Alicia has said that she feels pt can return home and that Alicia can provide needed care. Pt is wheelchair bound at baseline and pt states Alicia knows how to transfer pt from the chair to the wheelchair. Pt and are in agreement that pt can return home at time of discharge with the information that pt is 2-3 assist while here. KD will continue to follow for dc planning. DIONICIO Garay
--- NOTE | 2024-12-25 16:48 | DCINST_ITS ---
Discharge Instructions Follow Up Care Test Results: Test results from this visit will be discussed in further detail at your follow- up appointment, if applicable. Discharge Plan Admission Admit Date/Time: 12/15/24 23:22 Attending Provider: Raj Stevenson Primary Care Provider: Juan Miguel Russell Consulting Providers: Trip Fraire; Patrick Sharma; Dejon Harding; Sadia Torres Discharge Orders/Prescriptions Prescriptions: No Action insulin glargine 100 unit/mL (3 mL) insulin pen 22 unit subcut .QAM pregabalin [Lyrica] 100 mg capsule 100 mg PO DAILY atorvastatin 10 MG tablet 10 mg PO QHS budesonide-formoterol 80-4.5 mcg/actuation Hfa Aerosol Inhaler 2 puff INHALATION BID pantoprazole 40 mg Tablet,Delayed Release (Dr/Ec) 40 mg PO DAILY insulin aspart U-100 [Novolog FlexPen U-100 Insulin] 100 unit/mL (3 mL) insulin pen 2 unit SUBCUT TID Rx Instructions: 2 units per every 50 after 200 BG acetaminophen 500 MG tablet 1,000 mg PO TID PRN (Reason: Pain) albuterol sulfate [Ventolin HFA] 90 mcg/actuation HFA aerosol inhaler 1 - 2 puff inhalation Q4H PRN PRN (Reason: Wheezing) Qty: 8.5 0RF amlodipine 5 mg tablet 5 mg PO DAILY tramadol 50 mg tablet 50 mg PO Q6H PRN bumetanide 1 mg tablet 2 mg PO BID metoprolol tartrate 25 mg tablet 37.5 mg PO Q12H pregabalin 200 mg capsule 200 mg PO DAILY Eliquis 5 mg tablet 5 mg PO BID trazodone 50 mg tablet 50 mg PO QHS ondansetron HCl 4 mg tablet 4 mg PO Q8H PRN PRN (Reason: nausea and vomiting) aspirin [Adult Aspirin Regimen] 81 mg tablet,delayed release (DR/EC) 81 mg PO DAILY docusate sodium [Col-Rite] 100 mg capsule 200 mg PO DAILY PRN (Reason: constipation) Centrum Silver Men [id number] mcg tablet 1 tab PO DAILY calcium carbonate 200 mg calcium (500 mg) Tablet,Chewable 500 mg PO Q6H PRN PRN (Reason: HEARTBURN) Qty: 0 0RF hydrocodone-acetaminophen 5-325 mg tablet 1 tab PO TID PRN PRN (Reason: pain) Referrals / Follow Up: Juan Miguel Russell MD [Primary Care Provider, Medical]
--- NOTE | 2024-12-25 16:50 | PCM.PN.HOSP ---
Objective Data Objective Data Vital Signs: Vital Signs Temp Pulse Resp BP Pulse Ox O2 Del Method O2 Flow Rate 98.1 F 89 17 127/74 H 95 Nasal Cannula 2 12/25/24 14:05 12/25/24 14:05 12/25/24 14:05 12/25/24 14:05 12/25/24 14:05 12/25/24 14:05 12/25/24 14:05 FiO2 90 12/23/24 08:00 Oxygen Flow Rate (L/min) 2 Oxygen Delivery Method Nasal Cannula Weight: 254 lb 3.088 oz Body Mass Index (BMI) 43.4 Intake & Output: Intake and Output for Last 24 Hours 12/23/24 12/24/24 12/25/24 23:59 23:59 23:59 Intake Total 2046.05 / 2066.05 2397.45 / 2397.45 650 / 650 Output Total 3650 / 4650 2725 / 2725 200 / 200 Balance -1603.95 / -2583.95 -327.55 / -327.55 450 / 450 Lab / Micro Data 12/25/24 06:13 12/25/24 06:13 Labs: Laboratory Results - last 24 hr 12/24/24 16:44: POC Glucose 97 12/24/24 23:32: POC Glucose 98 12/25/24 06:13: WBC 10.1, RBC 4.75, Hgb 14.2, Hct 42.5, MCV 89.5, MCH 29.9, MCHC 33.4, RDW Std Deviation 43.4, RDW Coeff of David 13.2, Plt Count 295, MPV 11.6, Immature Gran % (Auto) 0.800, Neut % (Auto) 78.7 H, Lymph % (Auto) 10.0 L, [place] % (Auto) 8.7, Eos % (Auto) 1.3, Baso % (Auto) 0.5, Absolute Neuts (auto) 8.0 H, Absolute Lymphs (auto) 1.01, Nucleated RBC % 0, Sodium 143, Potassium 3.0 L, Chloride 104, Carbon Dioxide 29.1, Anion Gap 11, BUN 21 H, Creatinine 0.60 L, Estim Creat Clear Calc 151.93, Est GFR (MDRD) Non-Af 109, BUN/Creatinine Ratio 34.6 H, Glucose 140 H, Calcium 8.6 12/25/24 06:43: POC Glucose 133 H 12/25/24 11:19: POC Glucose 147 H 12/25/24 16:09: POC Glucose 83 Micro: Microbiology 12/20/24 16:30 Blood Culture (Wb) - Pic Blood Culture - Preliminary No growth in 48 hours. 12/16/24 00:50 Blood Culture (Wb) - Left Wrist Blood Culture - Final No growth in 5 days. 12/16/24 00:40 Blood Culture (Wb) - Anticubital Right Blood Culture - Final No growth in 5 days. 12/16/24 02:51 Sputum, Induced/Lukens Gram Stain - Final 12/16/24 02:51 Sputum, Induced/Lukens Respiratory Culture - Final Streptococcus agalactiae (B) Rhythm Strip Rhythm Strip: Sinus Rhythm Rate: 76 Ectopy: None Physical Exam Narrative Seen and examined. [facility] On IV antibiotics since admission. Sinus rhythm. On 2 L of oxygen. Did not require BiPAP. Wants to go home. Patient had bowel movement today. It was semisolid with no blood. Started on clear liquid yesterday and changed to regular diet today. TPN was discontinued. Physical General: Alert, Oriented x3, Cooperative. BMI 47.6 kg/m?, morbid obesity HEENT: Atraumatic, PERRLA, EOMI, Normocephalic. Oral: No Gingival or Mucosal Lesions/ Ulcerations Neck: Supple, No JVD, Negative Carotid Bruits Chest wall/Lungs: Air entry diminished in bilateral lung bases. No crepitation/rhonchi Cardiovascular: Regular rate and rhythm, Normal S1,S2, No M/G/R Abdomen: Midline surgical maite present, dry intact with no erythema/signs of infection. Bowel Sounds present. Mild expected tenderness along incision line. : No dysuria. No renal angle tenderness. No suprapubic tenderness. Extremities: mild edema, Capillary Refill Less than 3 Seconds Skin: No rashes, No breakdown Musculoskeletal: No Tenderness to Palpation of Joints or Extremities. ROM of knees and hips not examined Neurological: Cranial nerves II-XII grossly intact, DTR 2+/4. No acute focal neurological deficit. Psych/Mental Status: Flat affect Assessment & Plan Assessment/Plan (1) Perforated abdominal viscus: (2) Streptococcal pneumonia: (3) Paroxysmal atrial fibrillation with RVR: PLAN: Plan Patient is a 64-year-old male who presented to [facility] ED on 12/15/2024 with abdominal pain. Found to have pneumoperitoneum on CT imaging. Admitted under general surgery service and the hospitalist service consulted for assistance with medical management. 1. Perforated abdominal viscus ?S/p ex-lap w resection with anastamosis. 12/23:? Patient stated he did not pass flatus but bowel sounds present though sluggish ?abx have been changed to meropenem and vancomycin ?Now with ileus, mgmt per GS. ?On TPN 12/25: TPN was discontinued yesterday and started on clear liquid. Changed to regular diet today. Patient moving bowels and passing flatus. Streptococcal group B pneumonia ? Streptococcus agalactiae on sputum culture ? Afebrile. On meropenem and vancomycin. Previous antibiotics were discontinued; ciprofloxacin and metronidazole. 12/23: Repeat culture from 12/20 shows no growth in 48 hours. Earlier blood culture were negative on 12/16 per 12/24: Patient has been on antibiotic started on Cipro Flagyl on 12/15 and then changed to Vanco and meropenem on 12/20. I think he already had 9 days of IV antibiotics but will check with [employer] consultant Dr. Delacruz for strep group B pneumonia, found on 12/16 sputum culture. 12/25: Patient on IV ceftriaxone but can change to Keflex at the time of discharge through 12/27. Paroxysmal A-fib with RVR ?Developed A-fib RVR with rate to the 170s overnight on 12/21. Has history of paroxysmal A-fib, DOAC was on hold secondary to recent surgery. Was initiated on p.o. Lopressor and given a dose of IV Lopressor but unfortunately became hypotensive and had worsening respiratory status. Thus, patient underwent DCCV under conscious sedation with conversion back to sinus rhythm with rate to the 90s. Given amiodarone bolus and initiated on amiodarone drip. Required low-dose Levophed during cardioversion and shortly afterward, weaned off by morning 12/22. 12/23: Completed amiodarone drip. On metoprolol 25 mg twice daily currently sinus rhythm heart rate controlled in 70s. Acute hypoxic respiratory failure, improving: extubated on 12/20. CXR on 12/21 showing pulmonary vascular edema. Continue IV Lasix 20 mg every 8 hours. 12/23: On 3 to 4 L of high flow oxygen and BiPAP at night. 12/24: IV Lasix 20 mg Q8 hourly changed to 20 mg IV daily from tomorrow. 12/25: IV Lasix discontinued today. Intake and output similar. DM2: Continue glargine and SSI. Hyperglycemia with sugars to the 350s noted on the morning of 12/22. Initiated Humalog 8 units every 6 hours in addition to sliding scale insulin. Continue glargine as previous. Monitor sugars. Septic shock: wean off of norepinephrine on 12/20. Due to perforated viscous. HTN: amlodipine held given shock. VTE prophylaxis: per primary service. Charges/Coding Visit Charges Inpatient E&M: 58643 Subs Hosp L2
[2024-12-25] MEDS: APIXABAN 5 MG TABLET PO (21:34)
[2024-12-26] VITALS (8 sets, daily range): BP systolic 148–159; BP diastolic 58–99; PULSE 65–78; RESP 16–18; TEMP 36.1–36.8; O2SAT 92–100; BMI 41.8; BMI 42.0
--- NOTE | 2024-12-26 07:18 | PCM.PN.SRG ---
Subjective Subjective Patient evaluated resting comfortably in bed. He notes having 2 large bowel movements yesterday and over night. He is tolerating a regular diet well. He denies nausea, vomiting, fever. He is passing flatus. Objective Data Objective Data Vital Signs: Vital Signs Temp Pulse Resp BP Pulse Ox O2 Del Method O2 Flow Rate 97.5 F L 78 18 148/65 H 95 Nasal Cannula 2 12/26/24 04:45 12/26/24 04:45 12/26/24 04:45 12/26/24 04:45 12/26/24 04:45 12/26/24 04:49 12/26/24 04:49 FiO2 90 12/23/24 08:00 Oxygen Flow Rate (L/min) 2 Oxygen Delivery Method Nasal Cannula Weight: 244 lb 14.937 oz Body Mass Index (BMI) 41.8 Intake & Output: Intake and Output for Last 24 Hours 12/24/24 12/25/24 12/26/24 23:59 23:59 23:59 Intake Total 2397.45 / 2397.45 1050 / 1050 200 / 200 Output Total 2725 / 2725 600 / 600 200 / 200 Balance -327.55 / -327.55 450 / 450 0 / 0 Lab / Micro Data 12/26/24 08:15 12/26/24 08:15 Labs: Laboratory Results - last 24 hr 12/25/24 06:43: POC Glucose 133 H 12/25/24 11:19: POC Glucose 147 H 12/25/24 16:09: POC Glucose 83 12/26/24 06:10: POC Glucose 103 Micro: Microbiology 12/20/24 16:30 Blood Culture (Wb) - Pic Blood Culture - Final No growth in 5 days. 12/16/24 00:50 Blood Culture (Wb) - Left Wrist Blood Culture - Final No growth in 5 days. 12/16/24 00:40 Blood Culture (Wb) - Anticubital Right Blood Culture - Final No growth in 5 days. 12/16/24 02:51 Sputum, Induced/Lukens Gram Stain - Final 12/16/24 02:51 Sputum, Induced/Lukens Respiratory Culture - Final Streptococcus agalactiae (B) Rhythm Strip Rhythm Strip: Sinus Rhythm Rate: 76 Ectopy: None Physical Exam GI GI Narrative: Abdomen- soft, slight tenderness in the right lateral side of the abdomen. Positive bowel sounds Assessment & Plan Assessment/Plan (1) Perforated abdominal viscus: PLAN: I am following this patient in conjunction with Dr. Siddiqi. He has independently evaluated this patient. Labs reviewed. Encourage sitting in the chair Use I.S. Wean off of oxygen Further discuss patient's discharge placement. Patient ideally would have a better recovery at a rehabilitation facility prior to returning home. Continue IV antibiotics for completion of treatment for pneumonia Patient has resumed Eliquis as of yesterday. SQ Heparin was stopped Continue to monitor this patient today Likely discharge tomorrow at the earliest unless family and patient decide to discharge to a rehab facility Charges/Coding Visit Charges Inpatient E&M: 98225 Subs Hosp L1 (no charge; post-op)
[2024-12-26] MEDS: Budesonide Respules 0.5 MG/2 ML AMPUL.NEB. INHALATION ×2 (07:19→19:25)
[2024-12-26] MEDS: APIXABAN 5 MG TABLET PO ×2 (07:59→21:56)
[2024-12-26] MEDS: Potassium Chloride Oral Tablet 20 MEQ 40 MEQ PO ×2 (07:59→11:25)
[2024-12-26] MEDS: Aspirin E.C. 81 MG Tablet PO (07:59)
[2024-12-26 08:23] LABS: Hematocrit 40.2 % (40-54); Hemoglobin 13.3 g/dL (13.0-16.5); Immature Granulocytes Count 0.060 X10^3/uL (0.0-0.0); Mean Corp Hgb Conc 33.1 g/dL (32-36); Mean Corpuscular Volume 90.1 fL (80-94); Mean Platelet Vol. 11.3 fl (6.2-12.0); NRBC Flagged by Analyzer 0 % (0-5); Platelet Count 331 K/mm3 (150-450); RBC Distribution Width CV 13.1 % (11.6-14.6); RBC Distribution Width SD 43.0 fl (35.1-43.9); Red Blood Count 4.46 M/mm3 (4.6-6.2); White Blood Count 8.9 K/mm3 (4.4-11.0)
[2024-12-26 09:09] LABS: Anion Gap 11 (5-15); BUN 18 mg/dL (4-19); BUN/Creat Ratio 30.1 RATIO (10-20); Calcium,Total 8.5 mg/dL (7.6-11.0); Carbon Dioxide 27.9 mmol/L (21.0-32.0); Chloride 103 mmol/L (98-108); Estimated Creatinine Clearance 142.87 ml/min (50-250); Glucose 120 mg/dL (70-99); Potassium 3.5 mmol/L (3.3-5.1)
--- NOTE | 2024-12-26 10:12 | CASEMGMT ---
Social Work KD collaborated with Annette Barrett regarding discharge plan. Concerns continue with plan for pt to return home at time of discharge. Per conversation with pt's and pt yesterday, vangiedilan Vargas is pt's paid caregiver and Alicia states she knows how to handle pt and assist with transfers and pt can return home under her care. Surgery is concerned about pt ability to return home. KD reviewed pt's PT note from this morning. Pt is able to complete sit to stand transfers and stand pivot transfers at Min A x1. This has improved from Max A x2 on 12/24. Phone call to pt's and VM left requesting return call. KD would like to speak with pt brayan Vargas who provides pt care to confirm she is able to care for pt at home. KD will await return call. Noni at [facility] updated that pt will likely dc home tomorrow. DIONICIO Garay
[2024-12-26] MEDS: 0.9% Saline Lock 10 ML Syringe IV (10:14)
[2024-12-26] MEDS: Insulin Glargine-YFGN 100 UNIT/ML Pen 30 UNIT SC (10:14)
--- NOTE | 2024-12-26 14:23 | CASEMGMT ---
Social Work Second phone call placed to pt's and VM left requesting return call to discuss discharge plan. DIONICIO Preston
--- NOTE | 2024-12-26 15:52 | PN.HOSP_ITS ---
Objective Data Objective Data Vital Signs: Vital Signs Temp Pulse Resp BP Pulse Ox O2 Del Method O2 Flow Rate 97.1 F L 65 16 159/66 H 98 Nasal Cannula 1 12/26/24 14:24 12/26/24 14:24 12/26/24 14:24 12/26/24 14:24 12/26/24 14:24 12/26/24 14:55 12/26/24 14:55 FiO2 90 12/23/24 08:00 Oxygen Flow Rate (L/min) 1 Oxygen Delivery Method Nasal Cannula Weight: 246 lb Body Mass Index (BMI) 42.0 Intake & Output: Intake and Output for Last 24 Hours 12/24/24 12/25/24 12/26/24 23:59 23:59 23:59 Intake Total 2397.45 / 2397.45 1050 / 1050 650 / 650 Output Total 2725 / 2725 600 / 600 800 / 800 Balance -327.55 / -327.55 450 / 450 -150 / -150 Lab / Micro Data 12/26/24 08:15 12/26/24 08:15 Labs: Laboratory Results - last 24 hr 12/25/24 16:09: POC Glucose 83 12/26/24 06:10: POC Glucose 103 12/26/24 08:15: WBC 8.9, RBC 4.46 L, Hgb 13.3, Hct 40.2, MCV 90.1, MCH 29.8, MCHC 33.1, RDW Std Deviation 43.0, RDW Coeff of David 13.1, Plt Count 331, MPV 11.3, Immature Gran % (Auto) 0.700, Neut % (Auto) 74.6 H, Lymph % (Auto) 12.3 L, [place] % (Auto) 9.7, Eos % (Auto) 2.1, Baso % (Auto) 0.6, Absolute Neuts (auto) 6.7, Absolute Lymphs (auto) 1.10, Nucleated RBC % 0, Sodium 142, Potassium 3.5, Chloride 103, Carbon Dioxide 27.9, Anion Gap 11, BUN 18, Creatinine 0.60 L, Estim Creat Clear Calc 142.87, Est GFR (MDRD) Non-Af 109, BUN/Creatinine Ratio 30.1 H, Glucose 120 H, Calcium 8.5 12/26/24 11:10: POC Glucose 137 H Micro: Microbiology 12/20/24 16:30 Blood Culture (Wb) - Pic Blood Culture - Final No growth in 5 days. 12/16/24 00:50 Blood Culture (Wb) - Left Wrist Blood Culture - Final No growth in 5 days. 12/16/24 00:40 Blood Culture (Wb) - Anticubital Right Blood Culture - Final No growth in 5 days. 12/16/24 02:51 Sputum, Induced/Lukens Gram Stain - Final 12/16/24 02:51 Sputum, Induced/Lukens Respiratory Culture - Final Streptococcus agalactiae (B) Rhythm Strip Rhythm Strip: Sinus Rhythm Rate: 76 Ectopy: None Physical Exam Narrative Seen and examined. [facility]. Tolerating regular diet. Had bowel movement. No fever. Hemodynamically, BP and heart rate in normal range. Did not require BiPAP. Physical General: Alert, Oriented x3, Cooperative. BMI 47.6 kg/m?, morbid obesity HEENT: Atraumatic, PERRLA, EOMI, Normocephalic. Oral: No Gingival or Mucosal Lesions/ Ulcerations Neck: Supple, No JVD, Negative Carotid Bruits Chest wall/Lungs: Air entry diminished in bilateral lung bases. No crepitation/rhonchi Cardiovascular: Regular rate and rhythm, Normal S1,S2, No M/G/R Abdomen: Midline surgical maite present, dressing change. Dry intact with no erythema/signs of infection. Bowel Sounds present. Mild expected tenderness along incision line. : No dysuria. No renal angle tenderness. No suprapubic tenderness. Extremities: mild edema, Capillary Refill Less than 3 Seconds Skin: No rashes, No breakdown Musculoskeletal: No Tenderness to Palpation of Joints or Extremities. ROM of knees and hips not examined Neurological: Cranial nerves II-XII grossly intact, DTR 2+/4. No acute focal neurological deficit. Psych/Mental Status: Flat affect Assessment & Plan Assessment/Plan (1) Perforated abdominal viscus: (2) Streptococcal pneumonia: (3) Paroxysmal atrial fibrillation with RVR: PLAN: Plan Patient is a 64-year-old male who presented to [facility] ED on 12/15/2024 with abdominal pain. Found to have pneumoperitoneum on CT imaging. Admitted under general surgery service and the hospitalist service consulted for assistance with medical management. 1. Perforated abdominal viscus ?S/p ex-lap w resection with anastamosis. 12/23:? Patient stated he did not pass flatus but bowel sounds present though sluggish ?abx have been changed to meropenem and vancomycin ?Now with ileus, mgmt per GS. ?On TPN 12/25: TPN was discontinued yesterday and started on clear liquid. Changed to regular diet today. Patient moving bowels and passing flatus. 12/26: Patient tolerating regular diet. Passing flatus and bowel movement. Hospitalist team will sign off. Streptococcal group B pneumonia ? Streptococcus agalactiae on sputum culture ? Afebrile. On meropenem and vancomycin. Previous antibiotics were discontinued; ciprofloxacin and metronidazole. 12/23: Repeat culture from 12/20 shows no growth in 48 hours. Earlier blood culture were negative on 12/16 per 12/24: Patient has been on antibiotic started on Cipro Flagyl on 12/15 and then changed to Vanco and meropenem on 12/20. I think he already had 9 days of IV antibiotics but will check with [employer] consultant Dr. Delacruz for strep group B pneumonia, found on 12/16 sputum culture. 12/25: Patient on IV ceftriaxone but can change to Keflex at the time of discharge through 12/27. 12/26: Patient will complete antibiotic on 12/27 admission above Paroxysmal A-fib with RVR ?Developed A-fib RVR with rate to the 170s overnight on 12/21. Has history of paroxysmal A-fib, DOAC was on hold secondary to recent surgery. Was initiated on p.o. Lopressor and given a dose of IV Lopressor but unfortunately became hypotensive and had worsening respiratory status. Thus, patient underwent DCCV under conscious sedation with conversion back to sinus rhythm with rate to the 90s. Given amiodarone bolus and initiated on amiodarone drip. Required low- dose Levophed during cardioversion and shortly afterward, weaned off by morning 12/22. 12/23: Completed amiodarone drip. On metoprolol 25 mg twice daily currently sinus rhythm heart rate controlled in 70s. 12/26 currently in sinus rhythm. Heart rate and blood pressure controlled. Acute hypoxic respiratory failure, improving: extubated on 12/20. CXR on 12/21 showing pulmonary vascular edema. Continue IV Lasix 20 mg every 8 hours. 12/23: On 3 to 4 L of high flow oxygen and BiPAP at night. 12/24: IV Lasix 20 mg Q8 hourly changed to 20 mg IV daily from tomorrow. 12/25: IV Lasix discontinued today. Intake and output similar. 12/26: Will need home O2 qualification test before discharge. DM2: Continue glargine and SSI. Hyperglycemia with sugars to the 350s noted on the morning of 12/22. Initiated Humalog 8 units every 6 hours in addition to sliding scale insulin. Continue glargine as previous. Monitor sugars. 12/26 glucoses controlled controlled. Avoid hypoglycemia. Lantus insulin dose decreased. Septic shock: wean off of norepinephrine on 12/20. Due to perforated viscous. HTN: amlodipine held given shock. VTE prophylaxis: per primary service. Charges/Coding Visit Charges Inpatient E&M: 15122 Subs Hosp L2
[2024-12-27 03:51] VITALS: BP 151/64; PULSE 62; RESP 18; TEMP 36.8; O2SAT 92
[2024-12-27 05:52] VITALS: BMI 41.0
[2024-12-27 07:15] VITALS: O2SAT 94
[2024-12-27 07:58] VITALS: BP 158/66; PULSE 64; RESP 18; TEMP 36.1; O2SAT 98
--- NOTE | 2024-12-27 07:58 | PN.SURG_ITS ---
Subjective Subjective Patient tolerated diet, does not does not want to go to rehab states that if he goes home and needs rehab he would come back in to be able to go there Objective Data Objective Data Vital Signs: Vital Signs Temp Pulse Resp BP Pulse Ox O2 Del Method O2 Flow Rate 98.2 F 62 18 151/64 H 92 Nasal Cannula 1 12/27/24 03:51 12/27/24 03:51 12/27/24 03:51 12/27/24 03:51 12/27/24 03:51 12/27/24 04:26 12/27/24 04:26 FiO2 90 12/23/24 08:00 Oxygen Flow Rate (L/min) 1 Oxygen Delivery Method Nasal Cannula Weight: 240 lb 4.862 oz Body Mass Index (BMI) 41.0 Intake & Output: Intake and Output for Last 24 Hours 12/25/24 12/26/24 12/27/24 23:59 23:59 23:59 Intake Total 1050 / 1050 650 / 650 300 / 300 Output Total 600 / 600 800 / 800 440 / 440 Balance 450 / 450 -150 / -150 -140 / -140 Lab / Micro Data 12/26/24 08:15 12/26/24 08:15 Labs: Laboratory Results - last 24 hr 12/26/24 08:15: WBC 8.9, RBC 4.46 L, Hgb 13.3, Hct 40.2, MCV 90.1, MCH 29.8, MCHC 33.1, RDW Std Deviation 43.0, RDW Coeff of David 13.1, Plt Count 331, MPV 11.3, Immature Gran % (Auto) 0.700, Neut % (Auto) 74.6 H, Lymph % (Auto) 12.3 L, [place] % (Auto) 9.7, Eos % (Auto) 2.1, Baso % (Auto) 0.6, Absolute Neuts (auto) 6.7, Absolute Lymphs (auto) 1.10, Nucleated RBC % 0, Sodium 142, Potassium 3.5, Chloride 103, Carbon Dioxide 27.9, Anion Gap 11, BUN 18, Creatinine 0.60 L, Estim Creat Clear Calc 142.87, Est GFR (MDRD) Non-Af 109, BUN/Creatinine Ratio 30.1 H, Glucose 120 H, Calcium 8.5 12/26/24 11:10: POC Glucose 137 H 12/26/24 16:20: POC Glucose 71 L 12/27/24 06:09: POC Glucose 94 Micro: Microbiology 12/20/24 16:30 Blood Culture (Wb) - Pic Blood Culture - Final No growth in 5 days. 12/16/24 00:50 Blood Culture (Wb) - Left Wrist Blood Culture - Final No growth in 5 days. 12/16/24 00:40 Blood Culture (Wb) - Anticubital Right Blood Culture - Final No growth in 5 days. 12/16/24 02:51 Sputum, Induced/Lukens Gram Stain - Final 12/16/24 02:51 Sputum, Induced/Lukens Respiratory Culture - Final Streptococcus agalactiae (B) Rhythm Strip Rhythm Strip: Sinus Rhythm Rate: 76 Ectopy: None Physical Exam Resp normal respiratory effort Cardio regular rate GI GI Narrative: Abdomen: Soft, nondistended, tender near incision's dressed clean dry and intact?with maite, no peritoneal signs Assessment & Plan Assessment/Plan (1) Perforated abdominal viscus: PLAN: On regular diet Encourage sitting in the chair Use I.S. Wean off of oxygen Further discuss patient's discharge placement. Patient ideally would have a better recovery at a rehabilitation facility prior to returning home?patient declines. Continue IV antibiotics for completion of treatment for pneumonia Patient has resumed Eliquis as of 12/25. Patient will need follow-up early next week for staple removal Sondra Yoder M.D. Pager: [phone] [facility] [address] [place] [address], [facility], [address] [place] [address] Office: [phone]
[2024-12-27 08:04] VITALS: PULSE 64
[2024-12-27] MEDS: Potassium Chloride Oral Tablet 20 MEQ 40 MEQ PO (08:04)
[2024-12-27] MEDS: APIXABAN 5 MG TABLET PO (08:04)
[2024-12-27] MEDS: Aspirin E.C. 81 MG Tablet PO (08:04)
[2024-12-27] MEDS: Insulin Glargine-YFGN 100 UNIT/ML Pen 25 UNIT SC (08:05)
--- NOTE | 2024-12-27 08:07 | CPS ---
Pt. was on 1 L O2 saturating 94%, pt. states he does not wear O2 at home, he is now on RA still saturating 94%
[2024-12-27 08:20] LABS: Hematocrit 44.2 % (40-54); Hemoglobin 14.3 g/dL (13.0-16.5); Immature Granulocytes Count 0.060 X10^3/uL (0.0-0.0); Mean Corp Hgb Conc 32.4 g/dL (32-36); Mean Corpuscular Volume 91.5 fL (80-94); Mean Platelet Vol. 11.7 fl (6.2-12.0); NRBC Flagged by Analyzer 0 % (0-5); Platelet Count 368 K/mm3 (150-450); RBC Distribution Width CV 13.1 % (11.6-14.6); RBC Distribution Width SD 44.2 fl (35.1-43.9); Red Blood Count 4.83 M/mm3 (4.6-6.2); White Blood Count 9.9 K/mm3 (4.4-11.0)
[2024-12-27 09:03] LABS: Anion Gap 13 (5-15); BUN 13 mg/dL (4-19); BUN/Creat Ratio 25.5 RATIO (10-20); Calcium,Total 8.7 mg/dL (7.6-11.0); Carbon Dioxide 22.2 mmol/L (21.0-32.0); Chloride 105 mmol/L (98-108); Estimated Creatinine Clearance 162.72 ml/min (50-250); Glucose 90 mg/dL (70-99); Potassium 4.2 mmol/L (3.3-5.1)
[2024-12-27] MEDS: 0.9% Saline Lock 10 ML Syringe IV (10:06)
--- NOTE | 2024-12-27 10:39 | DCINST_ITS ---
Discharge Instructions Diet Discharge Diet: Carb Control Diet (diabetic) Activity Discharge Activity: May Not Drive (while taking narcotic pain medications.) May shower in (days): 1 Lifting Restrictions: no lifting >20 lbs x 2 wks, no strenuous exercise for 4 wks Dressing / Incision Call your doctor if your incision/area has: Continuous Slow Oozing, Sudden Increased Bleeding, Increased Pain/ Swelling, Increased Redness, Foul Smelling Discharge and Swelling at the incision site Call your doctor if you observe: Fever of 101 or Higher Cleanse incision/area with: Soap & Water Additional Dressing/Incision Instructions:: Steri-Strips will fall off in 7 to 10 days, if they do not fall off okay to remove after 10 days from surgery. Will plan to remove maite in about 2 weeks from surgery Follow Up Care Please Follow Up With: Raj Stevenson MD When: Call the office for a follow-up appointment for early next week for staple removal; after 5 PM and on the weekends call [phone] with any concerns. Test Results: Test results from this visit will be discussed in further detail at your follow- up appointment, if applicable. Discharge Plan Admission Admit Date/Time: 12/15/24 23:22 Attending Provider: Raj Stevenson Primary Care Provider: Juan Miguel Russell Consulting Providers: Trip Fraire; Patrick Sharma; Dejon Harding; Sadia Torres Discharge Orders/Prescriptions Prescriptions: New cephalexin 500 mg capsule 500 mg PO TID Qty: 3 0RF Continued insulin glargine 100 unit/mL (3 mL) insulin pen 22 unit subcut .QAM pregabalin [Lyrica] 100 mg capsule 100 mg PO DAILY atorvastatin 10 MG tablet 10 mg PO QHS budesonide-formoterol 80-4.5 mcg/actuation Hfa Aerosol Inhaler 2 puff INHALATION BID pantoprazole 40 mg Tablet,Delayed Release (Dr/Ec) 40 mg PO DAILY insulin aspart U-100 [Novolog FlexPen U-100 Insulin] 100 unit/mL (3 mL) insulin pen 2 unit SUBCUT TID Rx Instructions: 2 units per every 50 after 200 BG acetaminophen 500 MG tablet 1,000 mg PO TID PRN (Reason: Pain) albuterol sulfate [Ventolin HFA] 90 mcg/actuation HFA aerosol inhaler 1 - 2 puff inhalation Q4H PRN PRN (Reason: Wheezing) Qty: 8.5 0RF amlodipine 5 mg tablet 5 mg PO DAILY tramadol 50 mg tablet 50 mg PO Q6H PRN bumetanide 1 mg tablet 2 mg PO BID metoprolol tartrate 25 mg tablet 37.5 mg PO Q12H pregabalin 200 mg capsule 200 mg PO DAILY Eliquis 5 mg tablet 5 mg PO BID trazodone 50 mg tablet 50 mg PO QHS ondansetron HCl 4 mg tablet 4 mg PO Q8H PRN PRN (Reason: nausea and vomiting) aspirin [Adult Aspirin Regimen] 81 mg tablet,delayed release (DR/EC) 81 mg PO DAILY docusate sodium [Col-Rite] 100 mg capsule 200 mg PO DAILY PRN (Reason: constipation) Centrum Silver Men [phone] mcg tablet 1 tab PO DAILY calcium carbonate 200 mg calcium (500 mg) Tablet,Chewable 500 mg PO Q6H PRN PRN (Reason: HEARTBURN) Qty: 0 0RF hydrocodone-acetaminophen 5-325 mg tablet 1 tab PO TID PRN PRN (Reason: pain) Referrals / Follow Up: Juan Miguel Russell MD [Primary Care Provider, Medical] Disposition Disposition (needs filled in before D/C Order can be placed): Home, Self Care
--- NOTE | 2024-12-27 10:44 | DS.PCM_ITS ---
Providers Date of Admission: 12/15/24 Date of Discharge: 12/27/24 Primary Care Physician: Dr. Juan Miguel Russell MD Consultations 12/15/24 23:22 Consult: Hospitalist Routine Consulting Provider: Sadia Torres Reason for Consult: medical management EMERGENT Consult: No Notified: Yes Date Notified: 12/15/24 Time Notified: 23:25 Method of Notification: Verbal Consult: Outside Plant Field Engineer / Pulmonary Medicine Routine Consulting Provider: Intensivists/Pulmonary Med Reason for Consult: CRITICAL CARE EMERGENT Consult: No Notified: Yes Date Notified: 12/16/24 Time Notified: 01:30 Method of Notification: Verbal 12/18/24 05:42 Consult: Onc/Wound/pump servicer helper Routine Comment: Reason for Consult:: new pressure injury to buttocks Reason For Visit: PERFORATED BOWEL Diagnosis Discharge Diagnosis (1) Perforated abdominal viscus: Status: Acute Code(s): R19.8 - Other specified symptoms and signs involving the digestive system and abdomen Plan: On regular diet Encourage sitting in the chair Use I.S. Wean off of oxygen Further discuss patient's discharge placement. Patient ideally would have a better recovery at a rehabilitation facility prior to returning home?patient declines. Continue IV antibiotics for completion of treatment for pneumonia Patient has resumed Eliquis as of 12/25. Patient will need follow-up early next week for staple removal Sondra Yoder M.D. Pager: [phone] [facility] [address] [place] [address], [address] [place] [address] Office: [phone] Medications at Discharge Home Medications atorvastatin 10 mg tablet 10 mg PO QHS cholesterol 11/03/16 budesonide-formoterol HFA 80 mcg-4.5 mcg/actuation aerosol inhaler 2 puff inhalation BID lung disease 10/30/20 pantoprazole 40 mg tablet,delayed release 40 mg PO DAILY reflux 10/30/20 acetaminophen 500 mg tablet 1,000 mg PO TID PRN Pain 10/18/21 albuterol sulfate 90 mcg/actuation aerosol inhaler (Ventolin HFA) 1 - 2 puff inhalation Q4H PRN PRN Wheezing #8.5 grams 10/18/21 insulin aspart U-100 100 unit/mL (3 mL) subcutaneous pen (Novolog FlexPen U-100 Insulin aspart) 2 unit subcut TID diabetes 10/14/22 insulin glargine 100 unit/mL (3 mL) subcutaneous pen 22 unit subcut .QAM diabetes 10/14/22 pregabalin 100 mg capsule (Lyrica) 100 mg PO DAILY NEUROPATHY 10/14/22 amlodipine 5 mg tablet 5 mg PO DAILY blood pressure 06/22/23 apixaban 5 mg tablet (Eliquis) 5 mg PO BID blood thinner 06/22/23 aspirin 81 mg tablet,delayed release (Adult Aspirin Regimen) 81 mg PO DAILY heart health 06/22/23 bumetanide 1 mg tablet 2 mg PO BID edema 06/22/23 docusate sodium 100 mg capsule (Col-Rite) 200 mg PO DAILY PRN constipation 06/22/23 metoprolol tartrate 25 mg tablet 37.5 mg PO Q12H blood pressure / heart 06/22/23 [id number]-eo-[id number] 300 mcg-K 60 mcg-lycop 600 mcg-lutein 300 mcg tablet (Centrum Silver Men) 1 tab PO DAILY supplement 06/22/23 ondansetron HCl 4 mg tablet 4 mg PO Q8H PRN PRN nausea and vomiting 06/22/23 pregabalin 200 mg capsule 200 mg PO DAILY nerve pain 06/22/23 tramadol 50 mg tablet 50 mg PO Q6H PRN pain 06/22/23 trazodone 50 mg tablet 50 mg PO QHS sleep 06/22/23 calcium carbonate 500 mg (2.5 x 200 mg calcium (500 mg)) PO Q6H PRN PRN HEARTBURN #0 tabs 06/24/23 hydrocodone-acetaminophen 5-325mg 5mg-325mg 1 tab PO TID PRN PRN pain 12/15/24 cephalexin 500 mg capsule 500 mg PO TID #3 caps 12/27/24 Hospital Course Operations - (Exploratory laparoscopy converted to laparotomy, small bowel resection due to perforated small bowel 12/15/24) Procedures Intubation (In the OR and remained intubated in the ICU) Summary of Care Provided Minutes Spent on Discharge: 15 Hospital Course: Patient initially presented to the ER due to abdominal pain and was found to have small bowel perforation during exploratory scopic converted to laparotomy with small bowel resection. Postoperatively patient was kept intubated and sent to the ICU. Patient did have some postop hypotension as well as treated with fluid and pressors were able to be weaned. Patient remained intubated until 12/20 when he was able to be extubated. Patient was found to have a pneumonia-S treptococcus agalactiae (B) per culture initial antibiotics were not appropriate coverage patient has completed 6 days of appropriate antibiotics and will have Keflex p.o. at home for 1 day for total of 7 days. Patient was recommended for rehab however patient declined and states that they have a system at home and he is about the same as previous activity. Once extubated patient was able to tolerate diet and having bowel function. Patient does have maite in his midline incision we will plan to remove them about 2 weeks after surgery have patient follow-up in the office for this. Physical Exam GI soft to palpation and non-tender GI Narrative: Incision clean dry and intact with maite Weight / BMI Weight Weight: 240 lb 4.862 oz Body Mass Index (BMI) 41.0 ABG / Lab / Microbiology Data 12/27/24 07:33 12/27/24 07:33 Laboratory: Laboratory Results - last 24 hr 12/26/24 11:10: POC Glucose 137 H 12/26/24 16:20: POC Glucose 71 L 12/27/24 06:09: POC Glucose 94 12/27/24 07:33: WBC 9.9, RBC 4.83, Hgb 14.3, Hct 44.2, MCV 91.5, MCH 29.6, MCHC 32.4, RDW Std Deviation 44.2 H, RDW Coeff of David 13.1, Plt Count 368, MPV 11.7, Immature Gran % (Auto) 0.600, Neut % (Auto) 76.6 H, Lymph % (Auto) 11.0 L, [place] % (Auto) 9.2, Eos % (Auto) 1.9, Baso % (Auto) 0.7, Absolute Neuts (auto) 7.6, Absolute Lymphs (auto) 1.09, Nucleated RBC % 0, Sodium 141, Potassium 4.2, Chloride 105, Carbon Dioxide 22.2, Anion Gap 13, BUN 13, Creatinine 0.52 L, Estim Creat Clear Calc 162.72, Est GFR (MDRD) Non-Af 113, BUN/Creatinine Ratio 25.5 H, Glucose 90, Calcium 8.7 Microbiology: Microbiology 12/20/24 16:30 Blood Culture (Wb) - Pic Blood Culture - Final No growth in 5 days. 12/16/24 00:50 Blood Culture (Wb) - Left Wrist Blood Culture - Final No growth in 5 days. 12/16/24 00:40 Blood Culture (Wb) - Anticubital Right Blood Culture - Final No growth in 5 days. 12/16/24 02:51 Sputum, Induced/Lukens Gram Stain - Final 12/16/24 02:51 Sputum, Induced/Lukens Respiratory Culture - Final Streptococcus agalactiae (B) D/C Instructions May shower in (days): 1 Call your doctor if your incision/area has: Continuous Slow Oozing, Sudden Increased Bleeding, Increased Pain/ Swelling, Increased Redness, Foul Smelling Discharge and Swelling at the incision site Call your doctor if you observe: Fever of 101 or Higher Cleanse incision/area with: Soap & Water Additional Dressing/Incision Instructions: Steri-Strips will fall off in 7 to 10 days, if they do not fall off okay to remove after 10 days from surgery. Will plan to remove maite in about 2 weeks from surgery DC O2, CPAP, BIPAP Needs Home O2 Discharge instructions: No Please Follow Up With: Raj Stevenson MD When: Call the office for a follow-up appointment for early next week for staple removal; after 5 PM and on the weekends call [phone] with any concerns. Meaningful Use Info Meaningful Use Meaningful Use Diagnoses (Choose all that apply): None applicable Discharge Plan Admission Admit Date/Time: 12/15/24 23:22 Attending Provider: Raj Stevenson Primary Care Provider: Juan Miguel Russell Consulting Providers: Trip Fraire; Patrick Sharma; Dejon Harding; Sadia Torres Discharge Orders/Prescriptions Prescriptions: New cephalexin 500 mg capsule 500 mg PO TID Qty: 3 0RF Continued insulin glargine 100 unit/mL (3 mL) insulin pen 22 unit subcut .QAM pregabalin [Lyrica] 100 mg capsule 100 mg PO DAILY atorvastatin 10 MG tablet 10 mg PO QHS budesonide-formoterol 80-4.5 mcg/actuation Hfa Aerosol Inhaler 2 puff INHALATION BID pantoprazole 40 mg Tablet,Delayed Release (Dr/Ec) 40 mg PO DAILY insulin aspart U-100 [Novolog FlexPen U-100 Insulin] 100 unit/mL (3 mL) insulin pen 2 unit SUBCUT TID Rx Instructions: 2 units per every 50 after 200 BG acetaminophen 500 MG tablet 1,000 mg PO TID PRN (Reason: Pain) albuterol sulfate [Ventolin HFA] 90 mcg/actuation HFA aerosol inhaler 1 - 2 puff inhalation Q4H PRN PRN (Reason: Wheezing) Qty: 8.5 0RF amlodipine 5 mg tablet 5 mg PO DAILY tramadol 50 mg tablet 50 mg PO Q6H PRN bumetanide 1 mg tablet 2 mg PO BID metoprolol tartrate 25 mg tablet 37.5 mg PO Q12H pregabalin 200 mg capsule 200 mg PO DAILY Eliquis 5 mg tablet 5 mg PO BID trazodone 50 mg tablet 50 mg PO QHS ondansetron HCl 4 mg tablet 4 mg PO Q8H PRN PRN (Reason: nausea and vomiting) aspirin [Adult Aspirin Regimen] 81 mg tablet,delayed release (DR/EC) 81 mg PO DAILY docusate sodium [Col-Rite] 100 mg capsule 200 mg PO DAILY PRN (Reason: constipation) Centrum Silver Men [phone] mcg tablet 1 tab PO DAILY calcium carbonate 200 mg calcium (500 mg) Tablet,Chewable 500 mg PO Q6H PRN PRN (Reason: HEARTBURN) Qty: 0 0RF hydrocodone-acetaminophen 5-325 mg tablet 1 tab PO TID PRN PRN (Reason: pain) Referrals / Follow Up: Juan Miguel Russell MD [Primary Care Provider, Medical] Disposition Disposition (needs filled in before D/C Order can be placed): Home, Self Care
--- NOTE | 2024-12-27 11:21 | PHA.DC_ITS ---
Pharmacy SD Med Reconciliation Pharmacy Service has performed discharge medication reconciliation for this patient. The patient's discharge medication list was reviewed for discrepancies and discrepancies were resolved. Medications at Discharge Home Medications atorvastatin 10 mg tablet 10 mg PO QHS cholesterol 11/03/16 budesonide-formoterol HFA 80 mcg-4.5 mcg/actuation aerosol inhaler 2 puff inhalation BID lung disease 10/30/20 pantoprazole 40 mg tablet,delayed release 40 mg PO DAILY reflux 10/30/20 acetaminophen 500 mg tablet 1,000 mg PO TID PRN Pain 10/18/21 albuterol sulfate 90 mcg/actuation aerosol inhaler (Ventolin HFA) 1 - 2 puff inhalation Q4H PRN PRN Wheezing #8.5 grams 10/18/21 insulin aspart U-100 100 unit/mL (3 mL) subcutaneous pen (Novolog FlexPen U-100 Insulin aspart) 2 unit subcut TID diabetes 10/14/22 insulin glargine 100 unit/mL (3 mL) subcutaneous pen 22 unit subcut .QAM diabetes 10/14/22 pregabalin 100 mg capsule (Lyrica) 100 mg PO DAILY NEUROPATHY 10/14/22 amlodipine 5 mg tablet 5 mg PO DAILY blood pressure 06/22/23 apixaban 5 mg tablet (Eliquis) 5 mg PO BID blood thinner 06/22/23 aspirin 81 mg tablet,delayed release (Adult Aspirin Regimen) 81 mg PO DAILY heart health 06/22/23 bumetanide 1 mg tablet 2 mg PO BID edema 06/22/23 docusate sodium 100 mg capsule (Col-Rite) 200 mg PO DAILY PRN constipation 06/22/23 metoprolol tartrate 25 mg tablet 37.5 mg PO Q12H blood pressure / heart 06/22/23 rmxkxpdv-ma-eicye 300 mcg-K 60 mcg-lycop 600 mcg-lutein 300 mcg tablet (Centrum Silver Men) 1 tab PO DAILY supplement 06/22/23 ondansetron HCl 4 mg tablet 4 mg PO Q8H PRN PRN nausea and vomiting 06/22/23 pregabalin 200 mg capsule 200 mg PO DAILY nerve pain 06/22/23 tramadol 50 mg tablet 50 mg PO Q6H PRN pain 06/22/23 trazodone 50 mg tablet 50 mg PO QHS sleep 05/09/24 calcium carbonate 500 mg (2.5 x 200 mg calcium (500 mg)) PO Q6H PRN PRN HEA RTBURN #0 tabs 06/24/23 hydrocodone-acetaminophen 5-325mg 5mg-325mg 1 tab PO TID PRN PRN pain 12/15/24
--- NOTE | 2024-12-27 12:25 | CASEMGMT ---
Addendum entered by Amy Joshi 12/27/24 12:44: Social Work Prescription provided to pt for BGM and supplies. DIONICIO Preston Original Note: Social Work Per physician pt is ready for discharge today. SW placed call to [facility] who confirmed that start of care is on Saturday 12/30. SW met with pt and discussed discharge pt is agreeable to [facility] and feels he is ready for dc at this time. Pt does not qualify for home oxygen. Pt states he will call his family now for a ride home. Discharge orders faxed to [employer] Theresa Lopez. DIONICIO Preston
--- NOTE | 2024-12-27 15:01 | NURSING ---
PTS DAVIN CALLED IN TO QUESTION THE ATB THAT WAS CANCELLED, THIS NURSE COULD NOT TELL ACCORDING TO PHYSICIAN REPORTS SO WAS GOING TO CALL DR KIM OR DR SUN TO VERIFY. NIECE ASKED TO CALL PTS , IRENE, AT [phone]. PTS NURSE THEN CAME TO DESK AND VERIFIED THAT DR KIM AND DR SUN HAD DISCUSSED IT AND DECIDED AN ATB WAS NOT NEEDED AT DC. THIS NURSE CALLED GIVEN NUMBER W/NO ANSWER. BRIEF MSG THAT IT WAS CORRECT THAT PT WAS NOT TO BE DC'D ON AN ATB.
--- NOTE | 2024-12-27 15:31 | PCM.PN.HOSP ---
Objective Data Objective Data Vital Signs: Vital Signs Temp Pulse Resp BP Pulse Ox O2 Del Method O2 Flow Rate 97.0 F L 64 18 158/66 H 98 Room Air 1 12/27/24 07:58 12/27/24 08:04 12/27/24 07:58 12/27/24 07:58 12/27/24 07:58 12/27/24 09:40 12/27/24 04:26 FiO2 90 12/23/24 08:00 Oxygen Flow Rate (L/min) 1 Oxygen Delivery Method Room Air Weight: 240 lb 4.862 oz Body Mass Index (BMI) 41.0 Intake & Output: Intake and Output for Last 24 Hours 12/25/24 12/26/24 12/27/24 23:59 23:59 23:59 Intake Total 1050 / 1050 650 / 650 650 / 650 Output Total 600 / 600 800 / 800 840 / 840 Balance 450 / 450 -150 / -150 -190 / -190 Lab / Micro Data 12/27/24 07:33 12/27/24 07:33 Labs: Laboratory Results - last 24 hr 12/26/24 16:20: POC Glucose 71 L 12/27/24 06:09: POC Glucose 94 12/27/24 07:33: WBC 9.9, RBC 4.83, Hgb 14.3, Hct 44.2, MCV 91.5, MCH 29.6, MCHC 32.4, RDW Std Deviation 44.2 H, RDW Coeff of David 13.1, Plt Count 368, MPV 11.7, Immature Gran % (Auto) 0.600, Neut % (Auto) 76.6 H, Lymph % (Auto) 11.0 L, [place] % (Auto) 9.2, Eos % (Auto) 1.9, Baso % (Auto) 0.7, Absolute Neuts (auto) 7.6, Absolute Lymphs (auto) 1.09, Nucleated RBC % 0, Sodium 141, Potassium 4.2, Chloride 105, Carbon Dioxide 22.2, Anion Gap 13, BUN 13, Creatinine 0.52 L, Estim Creat Clear Calc 162.72, Est GFR (MDRD) Non-Af 113, BUN/Creatinine Ratio 25.5 H, Glucose 90, Calcium 8.7 12/27/24 11:09: POC Glucose 105 Micro: Microbiology 12/20/24 16:30 Blood Culture (Wb) - Pic Blood Culture - Final No growth in 5 days. 12/16/24 00:50 Blood Culture (Wb) - Left Wrist Blood Culture - Final No growth in 5 days. 12/16/24 00:40 Blood Culture (Wb) - Anticubital Right Blood Culture - Final No growth in 5 days. 12/16/24 02:51 Sputum, Induced/Lukens Gram Stain - Final 12/16/24 02:51 Sputum, Induced/Lukens Respiratory Culture - Final Streptococcus agalactiae (B) Rhythm Strip Rhythm Strip: Sinus Rhythm Rate: 76 Ectopy: None Physical Exam Narrative Seen and examined. Plan for discharge today. Patient refused for going to rehab. Discussed with the surgeon Dr. Yoder covering for Dr. Stevenson Patient is doing well on the [facility] floor. Tolerating regular diet. Had bowel movement. No fever. Hemodynamically, BP and heart rate in normal range. Did not require BiPAP. Physical General: Alert, Oriented x3, Cooperative. BMI 47.6 kg/m?, morbid obesity HEENT: Atraumatic, PERRLA, EOMI, Normocephalic. Oral: No Gingival or Mucosal Lesions/ Ulcerations Neck: Supple, No JVD, Negative Carotid Bruits Chest wall/Lungs: Air entry diminished in bilateral lung bases. No crepitation/rhonchi. No hypoxia Cardiovascular: Regular rate and rhythm, Normal S1,S2, No M/G/R Abdomen: Midline surgical maite present, dressing change. Dry intact with no erythema/signs of infection. Bowel Sounds present. Mild expected tenderness along incision line. : No dysuria. No renal angle tenderness. No suprapubic tenderness. Extremities: mild edema, Capillary Refill Less than 3 Seconds Skin: No rashes, No breakdown Musculoskeletal: No Tenderness to Palpation of Joints or Extremities. ROM of knees and hips not examined Neurological: Cranial nerves II-XII grossly intact, DTR 2+/4. No acute focal neurological deficit. Psych/Mental Status: Flat affect Assessment & Plan Assessment/Plan (1) Perforated abdominal viscus: (2) Streptococcal pneumonia: (3) Paroxysmal atrial fibrillation with RVR: PLAN: Plan Patient is a 64-year-old male who presented to [facility] ED on 12/15/2024 with abdominal pain. Found to have pneumoperitoneum on CT imaging. Admitted under general surgery service and the hospitalist service consulted for assistance with medical management. 1. Perforated abdominal viscus ?S/p ex-lap w resection with anastamosis. 12/23:? Patient stated he did not pass flatus but bowel sounds present though sluggish ?abx have been changed to meropenem and vancomycin ?Now with ileus, mgmt per GS. ?On TPN 12/25: TPN was discontinued yesterday and started on clear liquid. Changed to regular diet today. Patient moving bowels and passing flatus. 12/26: Patient tolerating regular diet. Passing flatus and bowel movement. Hospitalist team will sign off. 10/27: Patient is passing flatus and bowel movement. Abdomen is soft. Patient discharged home with follow-up with surgery from his primary attending surgeon Streptococcal group B pneumonia ? Streptococcus agalactiae on sputum culture ? Afebrile. On meropenem and vancomycin. Previous antibiotics were discontinued; ciprofloxacin and metronidazole. 12/23: Repeat culture from 12/20 shows no growth in 48 hours. Earlier blood culture were negative on 12/16 per 12/24: Patient has been on antibiotic started on Cipro Flagyl on 12/15 and then changed to Vanco and meropenem on 12/20. I think he already had 9 days of IV antibiotics but will check with ID [employer] consultant Dr. Delacruz for strep group B pneumonia, found on 12/16 sputum culture. 12/25: Patient on IV ceftriaxone but can change to Keflex at the time of discharge through 12/27. 12/26: Patient will complete antibiotic on 12/27 admission above 12/27: Patient had last dose of IV ceftriaxone today therefore no further antibiotic requirement. Paroxysmal A-fib with RVR ?Developed A-fib RVR with rate to the 170s overnight on 12/21. Has history of paroxysmal A-fib, DOAC was on hold secondary to recent surgery. Was initiated on p.o. Lopressor and given a dose of IV Lopressor but unfortunately became hypotensive and had worsening respiratory status. Thus, patient underwent DCCV under conscious sedation with conversion back to sinus rhythm with rate to the 90s. Given amiodarone bolus and initiated on amiodarone drip. Required low-dose Levophed during cardioversion and shortly afterward, weaned off by morning 12/22. 12/23: Completed amiodarone drip. On metoprolol 25 mg twice daily currently sinus rhythm heart rate controlled in 70s. 12/26 currently in sinus rhythm. Heart rate and blood pressure controlled. Acute hypoxic respiratory failure, improving: extubated on 12/20. CXR on 12/21 showing pulmonary vascular edema. Continue IV Lasix 20 mg every 8 hours. 12/23: On 3 to 4 L of high flow oxygen and BiPAP at night. 12/24: IV Lasix 20 mg Q8 hourly changed to 20 mg IV daily from tomorrow. 12/25: IV Lasix discontinued today. Intake and output similar. 12/26: Will need home O2 qualification test before discharge. DM2: Continue glargine and SSI. Hyperglycemia with sugars to the 350s noted on the morning of 12/22. Initiated Humalog 8 units every 6 hours in addition to sliding scale insulin. Continue glargine as previous. Monitor sugars. 12/26 glucoses controlled controlled. Avoid hypoglycemia. Lantus insulin dose decreased. Septic shock: wean off of norepinephrine on 12/20. Due to perforated viscous. HTN: amlodipine held given shock. VTE prophylaxis: per primary service. Discharge medication reconciliation done. Discharge follow-up instructions completed. Discharge process discussed with the patient and all questions were answered to patient's satisfaction. Follow with PCP in 1 to 2 weeks Total time spent, exact 35 minutes on discharge meds reconciliation, examination, coordination of care with nurses and ancillary staff, review of imaging and blood test and discussion with the patient on follow-up instructions. Charges/Coding Visit Charges Inpatient E&M: 01704 Subs Hosp L2
== END 2024-12-27 13:36 | disposition home health service (06) | DRG 853 ==
LOC: ED 20:52 → SDC 21:10 → ICU 21:11 → SDC 12-16 01:39 → ICU 12-16 01:39 → MS3 12-23 18:29
PROVIDERS: Family Medicine; Hospitalist; Internal Medicine; Internal Medicine Critical Care Medicine; Internal Medicine Pulmonary Disease; Physician Assistant; Admitting Provider Surgery; Emergency Provider Emergency Medicine; PCP Family Medicine; Visit Provider Surgery
PROC: 0DT80ZZ Resection of Small Intestine, Open Approach (ICD-10-PCS; CPT 49000; principal; 2024-12-15 21:00)
DX: A41.9 Sepsis, unspecified organism (principal); J96.01 Acute respiratory failure with hypoxia; R65.21 Severe sepsis with septic shock; K63.1 Perforation of intestine (nontraumatic); J15.3 Pneumonia due to streptococcus, group B; K65.9 Peritonitis, unspecified; K56.609 Unspecified intestinal obstruction, unspecified as to partial versus complete obstruction; I69.351 Hemiplegia and hemiparesis following cerebral infarction affecting right dominant side; J44.0 Chronic obstructive pulmonary disease with (acute) lower respiratory infection; J98.11 Atelectasis; D69.6 Thrombocytopenia, unspecified; E11.40 Type 2 diabetes mellitus with diabetic neuropathy, unspecified; E66.01 Morbid (severe) obesity due to excess calories; F31.9 Bipolar disorder, unspecified; D64.9 Anemia, unspecified; I10 Essential (primary) hypertension; Z95.2 Presence of prosthetic heart valve; I48.0 Paroxysmal atrial fibrillation; I69.328 Other speech and language deficits following cerebral infarction; I25.10 Atherosclerotic heart disease of native coronary artery without angina pectoris; K59.09 Other constipation; F41.9 Anxiety disorder, unspecified; K21.9 Gastro-esophageal reflux disease without esophagitis; G47.33 Obstructive sleep apnea (adult) (pediatric); E78.5 Hyperlipidemia, unspecified; Z79.4 Long term (current) use of insulin; F17.210 Nicotine dependence, cigarettes, uncomplicated; I69.392 Facial weakness following cerebral infarction; E86.1 Hypovolemia; E11.65 Type 2 diabetes mellitus with hyperglycemia; I95.81 Postprocedural hypotension; L89.329 Pressure ulcer of left buttock, unspecified stage; Y83.2 Surgical operation with anastomosis, bypass or graft as the cause of abnormal reaction of the patient, or of later complication, without mention of misadventure at the time of the procedure; Z79.51 Long term (current) use of inhaled steroids; Z88.0 Allergy status to penicillin; Q23.81 Bicuspid aortic valve; G89.29 Other chronic pain; Z87.19 Personal history of other diseases of the digestive system; Z79.01 Long term (current) use of anticoagulants; Z79.82 Long term (current) use of aspirin; Z79.899 Other long term (current) drug therapy; Z53.31 Laparoscopic surgical procedure converted to open procedure
CPT/HCPCS: 31720; 36415; 36569; 36600; 71045; 71046; 74018; 74177; 80048; 80053; 80202; 81001; 82550; 82803; 82962; 83605; 83690; 83735; 83880; 84100; 84132; 84478; 84484; 85025; 85027; 85379; 86850; 86900; 86901; 87040; 87070; 87077; 87186; 87205; 88307; 93005; 94002; 94003; 94640; 94660; 94668; 94762; 97163; 97167; 97530; 97535; 97802; 97803; 99285; J2185; Q9967; A4216; J0744; J1938; J2405